=== PATIENT | female | born 1940 | race Caucasian/White ===

== ENCOUNTER → 2020-08-02 14:23 | Outpatient (CLI) | payer MEDICARE, OTHER, SELFPAY ==
[2020-08-02 13:39] VITALS: BMI 30.2
[2020-08-02 15:25] LABS: Absolute Lymphocyte Count 1.81 X10^3/uL (0.83-4.51); Absolute Neutrophil Count 4.4 X10^3/uL (2.0-7.7); Basophil# 0.04 X10^3/uL; Basophil% 0.6 % (0-1); Eosinophil# 0.27 X10^3/uL; Eosinophils% 3.8 % (0-5); Hematocrit 42.3 % (37-47); Hemoglobin 13.3 g/dL (12.0-15.0); Lymphocyte # 1.81 X10^3/ul (4.0); Lymphocyte % 25.8 % (19-41); Mean Corp Hgb Conc 31.4 g/dL (32-36); Mean Corpuscular Hgb 29.6 pg (27.0-32.0); Mean Platelet Vol. 10.3 fl (6.2-12.0); Monocyte# 0.47 X10^3/uL; Monocyte% 6.7 % (0-10); NRBC Flagged by Analyzer 0 % (0-5); Neutrophil # 4.41 X10^3/uL (2.7-7.7); Neutrophil % 62.8 % (47-70); Platelet Count 211 K/mm3 (150-450); RBC Distribution Width CV 13.4 % (11.6-14.6); RBC Distribution Width SD 46.5 fl (35.1-43.9)
[2020-08-02 15:55] LABS: AST(SGOT) 16 U/L (15-37); Alanine Aminotransfer ALT/SGPT 26 U/L (13-56); Albumin, Serum 3.9 g/dL (3.2-5.0); Alkaline Phosphatase 71 U/L (45-117); Anion Gap 4 (5-15); BUN 23 mg/dL (7-18); BUN/Creat Ratio 26.5 RATIO (10-20); Chloride 107 mmol/L (98-107); Creatinine, Serum 0.87 mg/dL (0.55-1.02); EST Glomerular Filtration Rate 67 mL/min (>60); Est Glom Filt Rate - Afr Amer 81 mL/min (>60); Glucose 87 mg/dL (74-106); Potassium 4.9 mmol/L (3.5-5.1); Protein, Total 7.9 g/dL (6.4-8.2); Sodium Level 139 mmol/L (136-145); T4 Free Direct 0.92 ng/dL (0.76-1.46); Thyroid Stim Hormone (TSH) 3.39 uIU/mL (0.358-3.74)
[2020-08-02 16:02] LABS: Vitamin B12 515 pg/mL (211-911); Vitamin D,25 Hydroxy 55.2 ng/mL
[2020-08-02 16:39] LABS: Cholesterol 135 mg/dL (200); High Density Lipoprotein 38 mg/dL; Triglycerides 285 mg/dL; Very Low Density Lipoprotein 57 mg/dL (5-40)
== END ==
PROVIDERS: PCP Internal Medicine; Referring Provider Internal Medicine; Visit Provider Internal Medicine
DX: E53.8 Deficiency of other specified B group vitamins (principal); I10 Essential (primary) hypertension; E78.5 Hyperlipidemia, unspecified; M81.0 Age-related osteoporosis without current pathological fracture
CPT/HCPCS: 36415; 80053; 80061; 82306; 82607; 84439; 84443; 85025

== ENCOUNTER → 2020-08-07 12:28 | Outpatient (CLI) | payer MEDICARE, OTHER, SELFPAY ==
[2020-08-02 13:39] VITALS: BMI 30.2
--- NOTE | 2020-08-07 12:33 | RAD_ITS ---
STUDY: X-RAY - THORACIC SPINE REASON FOR EXAM: Female, 79 years old. BACK PAIN TECHNIQUE: 3 view(s) of the thoracic spine were obtained. COMPARISON: None. FINDINGS: There is an increase in the normal thoracic kyphosis. There is no substantial scoliosis. There is demineralization of the thoracic spine with endplate spondylosis. There is multilevel disc space narrowing of the thoracic spine. No acute fracture noted, chronic wedge shaped compression fractures noted at T4 and T8, each show approximately 50% loss of height anteriorly The soft tissue structures are unremarkable. RAD/Thoracic Spine 3 Views IMPRESSION: Diffuse osteopenia with multilevel degenerative changes. No acute findings Chronic compression fractures at T4 and T8 Electronically Signed: Darin Harper MD at 16:45 EST , Service support ,
--- NOTE | 2020-08-07 12:33 | RAD_ITS ---
STUDY: X-RAY - LUMBAR SPINE REASON FOR EXAM: Female, 79 years old. BACK PAIN TECHNIQUE: 4 view(s) of the lumbar spine were obtained. COMPARISON: None FINDINGS: Normal lumbar lordosis. There is no substantial scoliosis. There is a normal alignment of the vertebrae. Compression fractures at L2-L3 and L4 have been stabilized with kyphoplasties. Small amount of extravasation of cement outside the L3 and L4 noted. There is multi-level degenerative disc disease with multi-level disc space narrowing. There is no demonstrated acute fracture. The soft tissue structures are unremarkable. RAD/Lumbar Spine 2 or 3 Views IMPRESSION: Multilevel degenerative changes without acute fracture or suspicious osseous lesion Previous vertebroplasties noted at L3-L4 and L5 to stabilize compression fractures. Small amount of extravasated cement noted superior to the L3 vertebral body, and inferior to the L4 vertebral body. Electronically Signed: Darin Harper MD at 15:12 EST , Service support ,
--- NOTE | 2020-08-07 12:33 | RAD_ITS ---
HISTORY: NECK PAIN ADDITIONAL HISTORY: None provided. EXAMINATION/TECHNIQUE: XR Spine Cervical 2 or 3 Views Number of images including paperwork: 3 COMPARISON: None FINDINGS: VERTEBRAE: No acute fracture. VERTEBRAL ALIGNMENT: No traumatic subluxation. Approximate 5 mm of anterolisthesis of C4 on C5, likely degenerative given presence of severe facet arthropathy. DISKS AND JOINTS: Severe discogenic degenerative changes at C5-6. Cervical spine below the level of the upper aspect of C6 that are visualized on swimmer's ear from thoracic spine series. Severe facet arthropathy is present at C2-3, C3/4 and C4-5. SOFT TISSUES: Unremarkable paraspinous soft tissues. RAD/Cerv Spine 2 or 3 Views IMPRESSION: 1. No acute findings. 2. Cervical spondylosis. at 0721 Reported and signed by: Christine Dickens MD Electronically Signed: Christine Dickens MD at 7:21 EST Tel , Service support ,
--- NOTE | 2020-08-07 13:00 | RAD_ITS ---
HISTORY: PAIN AND SWELLING, FELL 1 MONTH ADDITIONAL HISTORY: None provided. EXAMINATION/TECHNIQUE: XR Forearm 2 Views Left Number of images including paperwork: 6 COMPARISON: Left wrist 06/28/2020 FINDINGS: BONES: Comminuted, intra-articular fracture of the left distal radius is noted with some impaction, dorsal displacement and dorsal angulation, slightly decreased compared to previous. Callus formation is noted without solid osseous union. JOINTS: No subluxation. SOFT TISSUES: No distinct foreign body. Soft tissue swelling. RAD/Forearm 2 Views IMPRESSION: Interval callus formation without evidence of solid osseous of left distal radius fracture. at 0725 Reported and signed by: Christine Dickens MD Electronically Signed: Christine Dickens MD at 7:25 EST Tel , Service support ,
== END ==
PROVIDERS: PCP Internal Medicine; Referring Provider Anesthesiology Pain Medicine; Visit Provider Anesthesiology Pain Medicine
DX: M54.2 Cervicalgia (principal); M54.9 Dorsalgia, unspecified
CPT/HCPCS: 72040; 72072; 72100; 73090

== ENCOUNTER → 2020-09-08 12:54 | Outpatient (CLI) | payer MEDICARE, OTHER, SELFPAY ==
[2020-08-02 13:39] VITALS: BMI 30.2
--- NOTE | 2020-09-08 13:36 | ST.MBS ---
Modified Barium Swallow - Patient Information Study Date: 09/08/20 Study Time: 13:00 Direct Billable Minutes: 90 Total Minutes procedure & reportin Diagnosis: dysphagia, unspecified (R13.10) Referring Physician: Vincent Frances Reason for Referral: The patient reports increased coughing with particular foods. Medical History: Per medical chart, the patient has a past medical history of heart disease, dementia, partial complex seizures, h/o back surgery, and acquired autoimmune encephalopathy. Current Diet Ordered: regular textures/thin liquids Dentition: Natural Teeth Mental Status: WNL Respiratory Status: Oxygenating on Room Air - Study Findings Consistencies: Thin Liquid, [place] Thick Liquid, Pudding, Cookie - Penetration-Aspiration Scale Penetration-Aspiration Scale: OBJECTIVE ASSESSMENT OF SWALLOW FUNCTION (QUANTITATIVE ? PER TRIAL): PENETRATION / ASPIRATION SCALE (YOON): 1 = does not enter airway 2 = enters airway/above vocal folds/ejected 3 = enters airway/above vocal folds/not ejected 4 = enters airway/contacts vocal folds/ejected 5 = enters airway/contacts vocal folds/not ejected 6 = enters airway/below vocal folds/ejected 7 = enters airway/below vocal folds/not ejected despite effort 8 = enters airway/below vocal folds/no effort - Penetration-Aspiration Scale Score Thin Liquid via teaspoon Result: 2= enter airway/above vocal folds/ejected Thin Liquid via teaspoon Trial 2 Result: 1= does not enter airway Thin Liquid via small single sip from cup Result: 1= does not enter airway Thin Liquid via large single sip from cup Result: 1= does not enter airway Thin Liquid via sequential sips from cup Result: 1= does not enter airway [place] Thick Liquid via large single sip from cup Result: 1= does not enter airway Pudding Result: 1= does not enter airway Cookie Result: 1= does not enter airway Thin Liquid via sequential sips from straw Result: 1= does not enter airway - Oral Phase Labial Seal: No Labial Escape Tongue Control During Bolus Hold: Cohesive bolus between tongue to palatal seal Bolus Preparation/Mastication: Timely and efficient chewing and mashing Bolus Transport/Lingual Motion: Brisk tongue motion Oral Residue: Trace residue lining oral structures - Pharyngeal Phase Initiation of Pharyngeal Swallow: Bolus head at posterior angle of ramus at first hyoid excursion Soft Palate Elevation: No bolus between soft palate and pharyngeal wall Laryngeal Elevation: Partial superior movement thyroid cart/partial apprx aryt-epig petiole Anterior Hyoid Excursion: Partial anterior movement Epiglottic Movement: Complete inversion Laryngeal Vestibule Closure at Height of Swallow: Incomplete; narrow column of air/contrast in laryngeal vestibule Pharyngeal Stripping Wave: Present - complete Pharyngoesophageal Segment Opening: Complete distension and complete duration; no obstruction of flow Tongue Base Retraction: Trace column of contrast between tongue base & post. pharyngeal wall Pharyngeal Residue: Complete pharyngeal clearance - Diagnosis/Impression Diagnosis: Swallow Function Within Normal Limits Impression: It was a pleasure working with the patient this date for a modified barium swallow study. The patient has reported increased coughing and bringing up food mainly pasta. The patient trialed solid Eileen Doone cookie and pudding textures both with adequate mastication and oral clearance. The patient trialed thin liquid barium from teaspoon sized trials to larger sequential sips via cup and straw. Only upon initial trial with thin liquid via tsp did patient have penetration above the vocal cords which was ejected. No aspiration found at this date and time. Symptoms patient is describing seem to be more esophageal in nature. Patient and spouse report history of acid reflux. Would recommend further esophageal workup to determine cause of patients symptoms. - Recommendations Diet: Regular Textures, Thin Liquids Compensatory Strategies: Small Bites, Small Sips, Sitting upright, Remain sitting upright for 30 minutes after PO intake Recommend Repeat Modified Barium Swallow: No Need for Skilled Speech Therapy Services: No Recommended Referrals: GI Consult Education Completed: 1. Described result of evaluation., 2. Pt understands evaluation & agrees with goals and treatment plan., 4. Family/caregivers understand evaluation & agree w/ goals & tx plan. - Status Active ST Patient: Active - Contact Information [facility] Speech Therapy:: Princess Andrews MA, CCC-CLIENT SERVICE SUPERVISOR [place] [phone] [email or web address]
== END ==
PROVIDERS: PCP Internal Medicine; Referring Provider Otolaryngology; Visit Provider Otolaryngology
DX: R13.10 Dysphagia, unspecified (principal)
CPT/HCPCS: 74230; 92611

== ENCOUNTER 2020-09-21 13:30 | Outpatient (RCR) | payer MEDICARE, OTHER, SELFPAY ==
[2020-06-28 13:37] VITALS: BMI 30.2
--- NOTE | 2020-08-01 08:43 | HP.OTEVAL_ITS ---
Patient's Visit Information SHELDON ALAN is a 79 year old F, referred to Occupational Therapy by STEPHANIE SANDOVAL, with a diagnosis of left radius intraarticular fx.. Date of Evaluation: 07/31/20 Occupational Therapist: Jerri Boyd, OTR/Tori, CHT - Subjective this 79 year old female was seen for OT eval with dx of left radius intraarticular fracture. fall was about the 1st week of ( maybe Jun. or Jun 20). pt did suffer fall arriving into facility and landed on hands- states someone in w/c got to close to her and she lost her balance. states some pain but nothing more than she typically has. pt states cast was removed last week and she continues to struggle with ADLS. pt would like to return to using her left hand for ADLS and IADLs. - ADLs Dressing: Bra, Button shirt, Pants, Socks, Shoes Fasteners: Tie shoes, Buttons, Zippers Eating: Use silverware, Cut food Bathing: Handle washcloth & soap, Squeeze shampoo bottle Kitchen: Open bottle caps - Pain left wrist 8 Pain Intensity Range: 5, 8 - ROM Forearm: right/left WNL Wrist: right 70/60 left 30/40 ROM Comments: pt demo with the ability to form a composite fist - Strength Certified Lactation Counselor: right 40# left NT Lateral Pinch: right 6# left NT Tripod Pinch: right 2# left NT Strength Comments: left wafer production lead worker strength will be tested at later date - Edema Wrist: right 15cm left 16.5 Other: right MCP 18cm left 18cm - Sensation Sensation Comments: denies tingling in finger tips (notes tingling/numbness around wrist) - Quick DASH-Disab of Arm,Shoulder& Hand Quick DASH Score: 72.7250 - Goals Goal:: when releases pt to strength in 8 weeks pt will demo a left wafer production lead worker strength of 30# or greater to increase pts ind. with ADls and IADL by d/c Goal:: pt will demo a increase in left wrist ROM by 25* or greater to increase pts ind. with self feeding, bathing and dressing tasks by dc Goal:: pt will report no pain greater than 2/10 with use of left UE for ADLs and IADLs by d/c Goal:: pt will demo understanding of joint protection , use of ad. eq to increase pts ind. with ADls and IADLS - Rehabilitation General Assessment: Pt demo with limited left wrist ROM and pain limiting her ind. with ADls and IADLS. pt arrives to clinic about 6 weeks from DOI ( 2 or 3rd per pts spouse). pt would benefit from skilled OT services 2x week for 6 weeks to decrease pain and increase use of left UE for ADls and IADLs. Today therapist ed. on GE wrist flex/ext to increase ROM, ed on modalities as heat or ice to decrease pts pain. pt and spouse demo understanding of ex and agree to POC Rehabilitation Potential: Good - Anticipated Interventions A/AAROM/PROM, Edema Control, Modalities, Orthoses, Joint Protection/Energy Conservation, Ergonomic Education - Visit Plan Frequency: 1-2x /Week Duration: 6 Weeks TEXT: Thank you for the opportunity to evaluate your patient. For Medicare and Medicare HMO plans, please review the plan of care and approve it. It will need to be FAXED BACK to us at [phone] for Medicare purposes. Please let me know if there are questions or concerns regarding this plan of care. Physician Signature: Date:
--- NOTE | 2020-08-23 13:02 | HP.PTEVAL ---
Patient's Visit Information SHELDON ALAN is a 79 year old F referred to Physical Therapy by STEPHANIE SANDOVAL with a diagnosis of Unsteady gait. Date of Evaluation: 08/23/20 Physical Therapist: Gunnar Graves, PT, ATC - Visit Plan Frequency: 2x /Week Duration: 4-6 Weeks Plan: B LE strengthening, balance and proprio ex's, gait training, nustep, and HEP - Subjective Pt reports she has fallen several times in the past, the most recent fall was last May when she fell and fractured her wrist. Pt is currently being treated by OT for that injury. Pt reports her falls have occurred in the house. Pt ambulates with a rolling walker outside of her house. Pt has good feeling in her feet. Pt reports she tends to fall when she walks around corners, and if she attempts to walk backwards. Pt reports she feels weak in her legs at this time. No tingling or numbness in her legs. Pt reports she is unable to ambulate far distances secondary to weakness. Pt has no stairs in her home. Pt reports no LE pain, but notes her L wrist is painful all the time. - Objective Neuro: B LE sensation is WNL to light touch. B patellar reflex= 2/3. MMT: B LE's are grossly 4-/5 throughout. No pain with MMT. ROM: B LE's are WFL this date. FGA: 08/16 - Balance Scores Functional Gait Assessment Score: 12 % Disability: 60.0000 - Goals Goal 1:: Increase B LE strength x 1 grade to aid with increasing tolerance for ambulation Goal Time Frame: 4-6 Weeks Goal 2:: Increase FGA score by 5 points to aid with preventing future falls Goal Time Frame: 4-6 Weeks Goal 3:: I with HEP Goal Time Frame: 4-6 Weeks - Rehabilitation Potential Physical Therapy Diagnosis: Pt has LE weakness, decreased dynamic balance, and a Hx of falls secondary to debilitation Rehabilitation Potential: Good - Anticipated Interventions Patient/Client Instruction: Educate patient on: Condition, Plan of Care For the Purpose of:: To improve self management Therapeutic Exercise to Include: Strength training, Endurance training, Balance training, Gait and locomotor training For the Purpose of:: To improve muscle performance and motor function, To increase tolerance to activity/condition/position, To improve gait and locomotor functions Thank you for the opportunity to evaluate your patient. For Medicare and Medicare HMO plans, please review the plan of care and approve it. It will need to be FAXED BACK to us at [phone] for Medicare purposes. For Medicare only, by signing this I certify the plan of care. Please let me know if there are questions or concerns regarding this plan of care. Physician Signature: Date:
--- NOTE | 2020-09-13 13:05 | HP.OTDCSUM ---
It has been my pleasure to treat SHELDON ALAN under orders from STEPHANIE SANDOVAL, for the diagnosis of left radius intraarticular fx. for a total of 12 visit(s). Please see the following information for a summary of their discharge status. % Improvement: 80 Objective/Function: left retail coverage merchandiser strength at 20#. left wrist 60/45. left lateral and tripod pinch 2# with thumb instability noted - Patient Goals: Use Hand/Wrist/Arm Normally Again Goal:: when releases pt to strength in 8 weeks pt will demo a left retail coverage merchandiser strength of 30# or greater to increase pts ind. with ADls and IADL by d/c Goal:: pt will demo a increase in left wrist ROM by 25* or greater to increase pts ind. with self feeding, bathing and dressing tasks by dc Goal:: pt will report no pain greater than 2/10 with use of left UE for ADLs and IADLs by d/c Goal:: pt will demo understanding of joint protection , use of ad. eq to increase pts ind. with ADls and IADLS Plan: cont with simulated ADL use. retail coverage merchandiser/pinch strength If there are questions or concerns regarding this patient's occupational therapy, please fell free to call me at [phone]. Thank you for the referral of this patient. Sincerely, Jerri Boyd, OTR/L, CHT
--- NOTE | 2020-09-21 16:04 | HP.PTDCSUM ---
It has been my pleasure to treat SHELDON ALAN referred by STEPHANIE SANDOVAL, with the diagnosis of Unsteady gait for a total of 8 visit(s). Discharge Date: Please see the following information for a summary of their discharge status. Subjective: Pt reports she continues to improve % Improvement: 75 Objective/Function: B LE MMT 5/5 throughout. FGA= . Pt is I with HEP. Rx goals achieved Goal 1:: Increase B LE strength x 1 grade to aid with increasing tolerance for ambulation Goal Progress: Goal Met Goal 2:: Increase FGA score by 5 points to aid with preventing future falls Goal Progress: Goal Met Goal 3:: I with HEP Goal Progress: Goal Met Plan: Discharge If there are questions or concerns regarding this patient's physical therapy, please feel free to call me at [phone]. Thank you for the referral of this patient. Sincerely, Gunnar Graves, PT, ATC
== END 2020-09-21 19:00 | disposition home or self-care (01) ==
LOC: PT 13:30
DX: S52.572D Other intraarticular fracture of lower end of left radius, subsequent encounter for closed fracture with routine healing (principal)
CPT/HCPCS: 97035; 97110; 97140; 97161; 97164; 97166; 97530

== ENCOUNTER 2020-10-07 21:26 | Emergency (ER) | payer MEDICARE, OTHER, SELFPAY ==
[2020-09-29 11:20] VITALS: BMI 30.4
[2020-10-07 21:27] VITALS: BP 139/65; PULSE 83; RESP 15; TEMP 36.3; O2SAT 93; BMI 29.2
--- NOTE | 2020-10-07 22:12 | ED.VIS.GEN ---
History of Present Illness Chief Complaint: Allergic Reaction Informant: Patient, Family Onset: Hours Context: Gradual Onset Current Severity: Mild Maximum Severity: Mild Narrative: Patient presents secondary to generalized itching. She received her Covid vaccine this morning, first dose of [employer]. Approximately one hour prior to arrival she states she started itching diffusely. No rashes been noted. She denies shortness of breath or throat tightness. She has not taken anything for her symptoms. - Past Medical History (1) Hypertension Status: Chronic (2) Myocardial infarction Status: Chronic (3) Gastroesophageal reflux disease Status: Chronic (4) Hyperlipidemia Status: Chronic (5) ERIS (obstructive sleep apnea) Status: Chronic (6) RSD (reflex sympathetic dystrophy) Status: Chronic (7) Restless leg syndrome Status: Chronic (8) Seizure disorder Status: Chronic Past Medical History - Allergies and Home Meds Allergies/Adverse Reactions: Allergies doxycycline Allergy (Mild, Verified 09/29/20 11:11) Vomiting oxycodone [From Percocet] Allergy (Mild, Verified 09/29/20 11:11) Confusion acetaminophen [From Darvocet-N] Allergy (Verified 09/29/20 11:11) Other lamotrigine [From Lamictal] Allergy (Verified 09/29/20 11:11) Lip Swelling moxifloxacin HCl [From Avelox] Allergy (Verified 09/29/20 11:11) Other propoxyphene napsylate [From Darvocet-N] Allergy (Verified 09/29/20 11:11) Other zolpidem tartrate [From Ambien] Adverse Reaction (Verified 09/29/20 11:11) Other Primary Care Physician: Bryant Melendrez MD [Primary Care Provider] - Prior records reviewed: Yes Lives: Spouse/ Significant Other Smoking Status: Never smoker Review of Systems General: Denies: Chills, Fever Eyes: Denies: Visual changes - bilaterally ENT: Denies: Bilateral ear pain Cardiovascular: Denies: Chest pain Respiratory: Denies: Dyspnea, Cough Gastrointestinal: Denies: Abdominal pain, Vomiting, Diarrhea Musculoskeletal: Denies: Swelling, Extremity Pain Skin: Denies: Rash, Wounds Neurological: Denies: Headache Allergy: Denies: Uticaria, Swelling of the mouth, Swelling of the tongue Physical Exam Vital Signs/Narrative: Vital Signs Temp Pulse Resp BP Pulse Ox 10/07/20 21:27 97.3 F L 83 15 139/65 H 93 Inital Vital Signs reviewed: Yes General: Well nourished, Well developed Head: Normocephalic ENT: Moist mucous membranes Neck: Supple Cardiovascular: Regular rate, Regular rhythm Respiratory: No distress, CTA bilaterally Abdomen: Soft, Nontender Extremities: Nontender Skin: Normal color, No rash Neurological: Alert, Oriented x3 Psychological: Normal affect Diagnostic/Tx/Re-eval - Medical Decision Making Patient was given 25 mg of p.o. Benadryl. After approximately 20 minutes patient states she is feeling improved and wishes to go home. will be with her. ED Disposition - Plan for ED Patient: Disposition: Home or Assisted Living Diagnosis: Pruritus Instructions: ED Drug Reaction, Other Referrals: Bryant Melendrez MD [Primary Care Provider] - As Needed
[2020-10-07] MEDS: DiphenhydrAMINE 25 MG Capsule PO (22:18)
[2020-10-07 23:02] VITALS: RESP 18
== END 2020-10-07 23:03 | disposition home or self-care (01) ==
PROVIDERS: Emergency Provider Emergency Medicine; PCP Internal Medicine
DX: L29.9 Pruritus, unspecified (principal); I10 Essential (primary) hypertension; E78.5 Hyperlipidemia, unspecified; G25.81 Restless legs syndrome; G40.909 Epilepsy, unspecified, not intractable, without status epilepticus; G47.33 Obstructive sleep apnea (adult) (pediatric); K21.9 Gastro-esophageal reflux disease without esophagitis; I25.2 Old myocardial infarction; Z23 Encounter for immunization; Z88.5 Allergy status to narcotic agent; Z88.8 Allergy status to other drugs, medicaments and biological substances; G90.50 Complex regional pain syndrome I, unspecified
CPT/HCPCS: 99283

== ENCOUNTER → 2020-10-12 08:32 | Outpatient (CLI) | payer MEDICARE, OTHER, SELFPAY ==
[2020-09-29 11:20] VITALS: BMI 30.4
[2020-10-07 21:27] VITALS: BMI 29.2
--- NOTE | 2020-10-13 10:28 | PFT ---
INTRODUCTION: The patient is a 80-year-old female that presents for pulmonary function studies secondary to a diagnosis of dyspnea. Respiratory therapy reports good patient effort. Bronchodilators were used during testing. INTERPRETATION: Forced expiration spirometry demonstrates no evidence of a large airways obstructive ventilatory defect. There was no significant response to aerosolized bronchodilators. Spirograms are of good quality and plateau normally. Body plethysmography was performed and reveals lung volumes to be within normal limits. Diffusing capacity by single breath CO was reduced to 67% of predicted. IMPRESSION: Isolated mild reduction in diffusing capacity, which could be related to an underlying pulmonary vascular disorder such as pulmonary hypertension.
== END ==
PROVIDERS: PCP Internal Medicine; Referring Provider Internal Medicine Critical Care Medicine; Visit Provider Internal Medicine Critical Care Medicine
DX: R06.00 Dyspnea, unspecified (principal)
CPT/HCPCS: 94060; 94726; 94729

== ENCOUNTER → 2020-10-16 12:23 | Outpatient (CLI) | payer MEDICARE, OTHER, SELFPAY ==
[2020-09-29 11:20] VITALS: BMI 30.4
[2020-10-07 21:27] VITALS: BMI 29.2
--- NOTE | 2020-10-16 12:42 | CT_ITS ---
STUDY: CT CHEST WITHOUT CONTRAST REASON FOR EXAM: Female, 80 years old. DYSPNEA, NON SMOKER, HX-LT BREAST CA-LUMPECTOMY AND RAD TX, KYPHOPLASTY RADIATION DOSAGE (If Supplied By Facility): CTDIvol = ( 8.86 ) mGy, DLP = ( 265.69 ) mGycm TECHNIQUE: Transaxial imaging was performed without the administration of intravenous contrast material. Multiplanar coronal and sagittal images were reformatted. Individualized dose optimization techniques were used for this CT. COMPARISON: Comparison is made with prior study dated 12/26/2014. FINDINGS: Postoperative changes are seen in the left breast. 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 Mild increased markings at the lung bases likely more prominent on the right side suggestive of basilar scarring. There is no demonstrated pleural abnormality. There are calcifications of the coronary arteries. There are multiple small lymph nodes within the mediastinum, which are normal in size and morphology most compatible with reactive lymph hyperplasia. Normal hilar regions. Normal unenhanced pulmonary arteries. There is atherosclerotic calcification of the aortic arch with tortuosity and elongation of the aortic arch and descending thoracic aorta. There are multi-level degenerative changes of the thoracic spine. Increased kyphosis. Almost complete loss of right upper mid dorsal vertebrae. Large hiatal hernia. CT/Chest without Contrast IMPRESSION: Mild increased markings at the lung bases suggestive of scarring. 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 Electronically Signed: Sam Mac MD at 13:52 EST , Service support ,
[2020-10-16 13:36] VITALS: PULSE 69; PULSE 72; PULSE 81; PULSE 86; PULSE 90; PULSE 91; O2SAT 90; O2SAT 91; O2SAT 92; O2SAT 93; O2SAT 95
--- NOTE | 2020-10-16 14:54 | PCM.PSN.6M ---
PSN 6 Minute Walk Test - 6 Minute Walk Test 6 Minute Walk Test: 6 Minute Walk Test PSN:6-Minute Walk Test Start: 10/16/20 13:36 Freq: Status: Active Protocol: RESP.6MINW Document 10/16/20 13:36 [place] (Rec: 10/16/20 13:38 [place] [id number]) 6 Minute Walk Test Date Performed 10/16/20 Time Performed 12:30 Height 5 ft Weight: 68.039 kg Weight in Pounds 150.[address]: Malachi Caal Assistive device used: None Pre-test Oxygen Delivery Method Room Air Pulse Ox (%) 92 Pulse Rate (60-100 beats/min) 69 Dyspnea Christopher Scale (0-10) 0.5 Exertion Christopher Scale (6-20) 6 1st minute Oxygen Delivery Method Room Air Pulse Ox (%) 92 Pulse Rate (60-100 beats/min) 81 2nd minute Oxygen Delivery Method Room Air Pulse Ox (%) 95 Pulse Rate (60-100 beats/min) 86 3rd minute Oxygen Delivery Method Room Air Pulse Ox (%) 92 Pulse Rate (60-100 beats/min) 90 4th minute Oxygen Delivery Method Room Air Pulse Ox (%) 91 Pulse Rate (60-100 beats/min) 91 5th minute Oxygen Delivery Method Room Air Pulse Ox (%) 90 Pulse Rate (60-100 beats/min) 91 6th minute Oxygen Delivery Method Room Air Pulse Ox (%) 92 Pulse Rate (60-100 beats/min) 91 Dyspnea Christopher Scale (0-10) 3 Exertion Christopher Scale (6-20) 13 Post-test Oxygen Delivery Method Room Air Pulse Ox (%) 93 Pulse Rate (60-100 beats/min) 72 Full Laps Walked 10 Partial Lap, Number of Tiles Walked 27 Total Distance Walked (ft) 617 - Interpretation Interpretation: Patient was able to ambulate 617 feet over the course of 6 minutes on room air with no assistive devices or breaks. The patient did have significant desaturation as low as 90% with a mild increase in heart rate to a peak of 91 bpm. These findings are consistent with a respiratory limitation exercise tolerance. - Recommendations Recommendations: No supplemental oxygen is indicated at this time. However, patient will need to be followed closely given level of desaturation.
== END ==
PROVIDERS: PCP Internal Medicine; Referring Provider Internal Medicine Critical Care Medicine; Visit Provider Internal Medicine Critical Care Medicine
DX: R06.00 Dyspnea, unspecified (principal)
CPT/HCPCS: 71250; 94618

== ENCOUNTER 2021-02-02 07:11 | Day surgery (SDC) | payer MEDICARE, OTHER, SELFPAY ==
[2020-11-06 13:06] VITALS: BMI 30.2
--- NOTE | 2021-01-22 11:02 | EKG12_ITS ---
Test Reason : PRE OP Blood Pressure : / mmHG Vent. Rate : 077 BPM Atrial Rate : 077 BPM P-R Int : 176 ms QRS Dur : 082 ms QT Int : 404 ms P-R-T Axes : 030 -24 068 degrees QTc Int : 457 ms Normal sinus rhythm Septal infarct , age undetermined Abnormal ECG Confirmed by TONNY COHEN, NAVDEEP ([id number]), city editor AMRNIE VIZCARRA ([id number]) on 01/23/2021 10:25:19 AM Referred By: Vincent Frances Confirmed By:NAVDEEP LANCASTER MD
[2021-02-02] VITALS (21 sets, daily range): BP systolic 102–168; BP diastolic 66–100; PULSE 68–76; RESP 14–18; TEMP 36–36.4; O2SAT 78–96; BMI 30.1
[2021-02-02] MEDS: Lactated Ringers 1,000 ML 100 ML IV ×2 (07:42→09:15)
[2021-02-02 07:53] LABS: Absolute Neutrophil Count 3.4 X10^3/uL (2.0-7.7); Basophil# 0.04 X10^3/uL; Basophil% 0.7 % (0-1); Eosinophil# 0.23 X10^3/uL; Eosinophils% 3.9 % (0-5); Hematocrit 41.9 % (37-47); Hemoglobin 13.7 g/dL (12.0-15.0); Lymphocyte % 32.2 % (19-41); Mean Corp Hgb Conc 32.7 g/dL (32-36); Mean Corpuscular Hgb 29.7 pg (27.0-32.0); Mean Corpuscular Volume 90.7 fL (81-99); Mean Platelet Vol. 9.9 fl (6.2-12.0); Monocyte# 0.32 X10^3/uL; Monocyte% 5.4 % (0-10); NRBC Flagged by Analyzer 0 % (0-5); Neutrophil # 3.39 X10^3/uL (2.7-7.7); Neutrophil % 57.5 % (47-70); Platelet Count 181 K/mm3 (150-450); RBC Distribution Width CV 12.6 % (11.6-14.6); RBC Distribution Width SD 41.9 fl (35.1-43.9); Red Blood Count 4.62 M/mm3 (4.2-5.4); White Blood Count 5.9 K/mm3 (4.4-11.0)
[2021-02-02 08:09] LABS: Anion Gap 6 (5-15); BUN 19 mg/dL (7-18); BUN/Creat Ratio 19.8 RATIO (10-20); Calcium,Total 8.7 mg/dL (8.5-10.1); Chloride 107 mmol/L (98-107); Creatinine, Serum 0.96 mg/dL (0.55-1.02); EST Glomerular Filtration Rate 60 mL/min (>60); Est Glom Filt Rate - Afr Amer 72 mL/min (>60); Estimated Creatinine Clearance 51.53 ml/min; Glucose 89 mg/dL (74-106); Potassium 4.2 mmol/L (3.5-5.1); Sodium Level 141 mmol/L (136-145)
[2021-02-02] MEDS: Oxymetazoline 0.05% 1 SPRAY SPRAY.BTL 15 SPRAY (09:10)
[2021-02-02] MEDS: Lidocaine 4% 50 ML Bottle (09:10)
--- NOTE | 2021-02-02 09:25 | PCM.OPRPT ---
Problems Associated Problem List Diagnoses (1) Cricopharyngeus muscle dysfunction: Report of Operation Date of Procedure: 02/02/21 Pre-Operative Diagnosis: Dysphagia Post-Operative Diagnosis: Same Surgery/Procedure Performed:: Direct laryngoscopy, esophageal dilation by bougie Description of Surgical Findings:: Lauren is a 80-year-old female with longstanding history of dysphagia. Although preoperative swallowing exam had showed no significant aspiration or reflux she continues to complain of significant swallowing problems and has a history of esophageal dilation which she reports gave her good relief and she desires repeat dilation in hopes of improvement of her complaint. The risks, alternatives, potential complications, and benefits were discussed at length and any questions answered to the patient and/or caregiver's satisfaction. Witnessed informed consent was obtained in the office, and the patient and/or caregiver was agreeable to proceed. Procedure went as follows: The patient was identified in the preoperative holding and brought to the operating room, placed under general anesthesia, and intubated. When appropriate anesthesia was obtained, the head of bed was rotated and the patient prepped and draped in usual sterile fashion. A dental guard was then placed to protect the upper gums and the Dedo laryngoscope then introduced. Direct laryngoscopy was then carried out. The oral mucosa was noted to be very dry. The lateral posterior pharyngeal wall mucosa, tonsillar fossa, vallecula, piriforms, and epiglottis were noted to be normal in appearance. The true and false vocal folds were then brought into view and again noted to be normal in appearance. The esophageal inlet was then evaluated and noted to be quite tight but without masses or other lesions. The Dedo was then withdrawn. Esophageal dilation was then undertaken using serial bougies with copious lubrication, and passed gradually from 15 [place] up to [address] [place] which was the maximal size that was comfortably able to be passed. The patient taken out of suspension and returned to anesthesia, was revived, and extubated without complication having tolerated the procedure well. Surgeon: Vincent Frances Type of Anesthesia: General Anesthesiologist: Andrew Philippe Special Medications: none Specimen's removed: none Drains: none Estimated Blood Loss (mL): 0 mL Fluids Replaced: 1000 mL Grafts/Implants Used: none Complications none Admit VTE Documentation VTE Present on Admission: Yes VTE Mechan Device Prophylaxis: SCD's VTE Pharm Prophylaxis ordered?: No Reason prophylaxis not ordered:: Procedure Not Indicated
--- NOTE | 2021-02-02 09:34 | PCM.DC ---
Discharge Instructions Diet Discharge Diet: Soft diet Activity Discharge Activity: Return to Normal Activity Dressing / Incision Call your doctor if your incision/area has: Increased Pain/ Swelling Call your doctor if you observe: Fever of 101 or Higher, Increased palpitations (irregular heartbeat) and Uncontrolled pain Follow Up Care Please Follow Up With: january When: 2 weeks Test Results: Test results from this visit will be discussed in further detail at your follow-up appointment, if applicable. Discharge Plan Admission Primary Reason for Your Visit: dysphagia Attending Provider: Vincent Frances Primary Care Provider: Bryant Melendrez Discharge Orders/Prescriptions Prescriptions: Continued hyoscyamine sulfate 0.125 mg tablet 0.125 mg PO BID RF: 0 esomeprazole magnesium [Nexium] 40 mg capsule,delayed release(DR/EC) 40 mg PO DAILY RF: 0 Vimpat 100 mg tablet 100 mg PO BID RF: 0 Vitron-C 65 mg iron- 125 mg tablet,delayed release (DR/EC) 1 tab PO QODAY RF: 0 spironolactone [Aldactone] 25 mg tablet 25 mg PO QHS RF: 0 pramipexole [Mirapex] 0.25 mg tablet 0.5 mg PO QHS RF: 0 pravastatin 40 mg tablet 40 mg PO DAILY RF: 0 montelukast [Singulair] 10 mg tablet 10 mg PO DAILY RF: 0 sertraline [Zoloft] 100 mg tablet 100 mg PO QHS RF: 0 nitroglycerin 0.4 mg tablet, sublingual 0.4 mg SUBLINGUAL ONCE PRN (Reason: CP) RF: 0 cholecalciferol (vitamin D3) 50 mcg (2,000 unit) capsule 50,000 unit PO QMONTH RF: 0 Myrbetriq 50 mg tablet extended release 24 hr 100 mg PO QHS RF: 0 tolterodine [Detrol LA] 4 mg capsule,extended release 24hr 4 mg PO DAILY RF: 0 furosemide [Lasix] 20 mg tablet 20 mg PO DAILY Qty: 90 RF: 2 cholecalciferol (vitamin D3) [Vitamin D3] 50 mcg (2,000 unit) Capsule 50 mcg PO DAILY RF: 0 Zyrtec 10 mg Capsule 10 mg PO DAILY RF: 0 aspirin 81 mg tablet,delayed release (DR/EC) 81 mg PO DAILY Qty: 0 RF: 0 gabapentin 300 mg capsule 600 mg PO BID Qty: 360 RF: 3 Prolia 60 mg/mL syringe 60 mg SC [id number] Qty: 1 RF: 2 ezetimibe [Zetia] 10 mg tablet 10 mg PO DAILY Qty: 90 RF: 2 Referrals / Follow Up: Bryant Melendrez MD [Primary Care Provider] - Disposition Discharge Orders: Discharge Patient (Routine); Ordered 02/02/21 Ordered By: Dr. Vincent Frances
== END 2021-02-02 14:24 ==
LOC: SDC 07:14 → AC 07:14
PROVIDERS: PCP Internal Medicine; Referring Provider Otolaryngology; Visit Provider Otolaryngology
PROC: 0CJS8ZZ Inspection of Larynx, Via Natural or Artificial Opening Endoscopic (ICD-10-PCS; CPT 31575; principal; 2021-02-02 08:45)
PROC: (CPT 31525; 2021-02-02 08:45)
DX: R13.10 Dysphagia, unspecified (principal); R42 Dizziness and giddiness; Z85.3 Personal history of malignant neoplasm of breast
CPT/HCPCS: 31525; 43450; 80048; 85025; 93005; J7120; J2310; J2405

== ENCOUNTER 2021-02-10 09:30 | Inpatient (IN) | payer MEDICARE, OTHER, SELFPAY ==
[2021-02-06 13:08] VITALS: BMI 30.1
[2021-02-10] VITALS (22 sets, daily range): BP systolic 75–123; BP diastolic 57–91; PULSE 88–107; RESP 16–24; TEMP 36–36.8; O2SAT 88–98; BMI 31.8
--- NOTE | 2021-02-10 09:31 | RAD_ITS ---
INDICATION: Neuro deficit, acute, stroke suspected EXAMINATION/TECHNIQUE: X-RAY - XR Chest 1 View COMPARISON: Radiographs of the chest dated 05/08/2020 CT of the chest dated 10/16/2020. FINDINGS: LINES/DEVICES: None. LUNGS: Lung volumes are diminished bilaterally. This may be secondary to poor inspiratory effort and portable technique. There is right hilar airspace opacity as well as left basilar streaky airspace opacity. Costophrenic angles are sharp. No large pneumothorax is seen. No large pleural effusion is seen. MEDIASTINUM AND CARDIOVASCULAR STRUCTURES: The mediastinum and heart does not appear significantly enlarged. However there is prominence of the bilateral kamryn. There is tortuosity of the airway and aorta. Aortic atherosclerotic calcification is seen. Again noted is a likely hiatal hernia. BONES AND SOFT TISSUES: Surgical clips are noted overlying the left chest wall. Osseous structures demonstrate degenerative change. Likely kyphoplasty is noted in the lower thoracic spine. Likely prior right-sided rib fractures are noted. No acute fracture is seen. RAD/Chest 1 View IMPRESSION: Right hilar and left basilar airspace disease. This is nonspecific and may represent atelectasis or scarring. Underlying infectious process is not entirely excluded. 2. Prominent pulmonary vasculature at the bilateral kamryn. This may represent pulmonary edema. This may also represent vascular crowding from poor inspiratory effort and portable technique. 3. Likely prior kyphoplasty in the lower thoracic spine. No acute fracture is seen. 4. Likely hiatal hernia. Electronically Signed: Mikhail Howard MD at 12:06 EDT Tel , Service support ,
--- NOTE | 2021-02-10 09:31 | EKG12_ITS ---
Test Reason : STROKE Blood Pressure : / mmHG Vent. Rate : 102 BPM Atrial Rate : 102 BPM P-R Int : 200 ms QRS Dur : 072 ms QT Int : 318 ms P-R-T Axes : 058 -25 113 degrees QTc Int : 414 ms Sinus tachycardia Anteroseptal infarct , age undetermined Abnormal ECG Confirmed by COLT COHEN, ARTIS ([id number]), mapping editor MARNIE VIZCARRA ([id number]) on 02/13/2021 8:47:29 AM Referred By: CL Confirmed By:ARTIS GREGORY MD
--- NOTE | 2021-02-10 09:31 | CT_ITS ---
STUDY: CT HEAD STROKE PROTOCOL W/O CONTRAST INJECTION REASON FOR EXAM: Female, 80 years old. Severe headache RADIATION DOSAGE (If Supplied By Facility): CTDIvol = ( ) mGy, DLP = ( ) mGycm TECHNIQUE: Transaxial CT imaging of the brain was performed without administration of intravenous contrast material. Individualized dose optimization techniques were used for this CT. COMPARISON: No relevant priors. FINDINGS: Normal soft tissue structures. Normal calvarium. There is moderate cerebral atrophy with widening of the extra-axial spaces and ventricular dilatation. There are areas of decreased attenuation within the white matter tracts of the supratentorial brain, consistent with microvascular disease changes. Normal basal ganglia and thalami. Normal brainstem. Normal cerebellum. There is no intracranial hemorrhage. There are no findings of an acute ischemic infarction. Normal visualized paranasal sinuses. ASPECT score: 10 CT/STROKE Brain/Head without Cont IMPRESSION: Chronic involutional changes of the brain. No acute hemorrhage N.B. : The above Results were Read Back by Darin Harper MD to MD Brenda, and understanding confirmed on 02/10/2021 09:48:04 (ET). Electronically Signed: Darin Harper MD at 9:49 EDT , Service support ,
--- NOTE | 2021-02-10 09:40 | CT_ITS ---
STUDY: CTA HEAD AND NECK WITH CONTRAST REASON FOR EXAM: Female, 80 years old. Stroke RADIATION DOSAGE (If Supplied By Facility): CTDIvol = ( 17.67 ) mGy, DLP = ( 685.18 ) mGycm TECHNIQUE: CT angiography was performed with a multi-detector CT scanner. Data acquisition was obtained from the skull base through the vertex following intravenous administration of IV 100mL Isovue-370. MIP images were reconstructed from the axial data set. Post-processing of the angiographic images was performed, with multiplanar reformation and 3D reconstruction. Individualized dose optimization techniques were used for this CT. COMPARISON: No relevant priors. FINDINGS: Normal bilateral petrous carotid arteries. Normal right cavernous carotid artery with a normal supraclinoid bifurcation. There is calcified plaque formation of the left cavernous carotid artery, without a cross-sectional luminal stenosis. Normal right A1 segments of the anterior cerebral artery. Normal left A1 segments of the anterior cerebral artery. There is non-visualization of the anterior communicating artery (ACOM). Normal bilateral A2 segments of the anterior cerebral arteries. Normal right M1 and M2 segments of the middle cerebral arteries, with a normal M1 bifurcation. Normal left M1 and M2 segments of the middle cerebral arteries, with a normal M1 bifurcation. Faintly visualized right posterior communicating artery (PCOM). There is a persistent origin of the left posterior cerebral artery with absence of the posterior communicating artery (PCOM). Normal bilateral vertebral arteries. Normal basilar artery with a normal basilar bifurcation. The visualized bilateral superior cerebellar (SCA) arteries are normal. There is no demonstrated definite aneurysm of the [place]. There is no demonstrated abnormality of the visualized brain. AORTIC ARCH: Normal visualized aortic arch. Common origins of the brachiocephalic, left common carotid, and left subclavian arteries which is a normal variant. RIGHT CAROTID ARTERIES: There is atherosclerotic tortuous elongation of the right common carotid artery. There is mild atherosclerotic plaque formation without significant narrowing of the right carotid bulb. Normal origin of the right internal carotid (ICA) artery without a hemodynamically significant stenosis. Normal visualized cervical portion of the right internal carotid artery. Normal origin of the right external carotid artery (ECA). LEFT CAROTID ARTERIES: Normal left common carotid artery (CCA). Normal left common carotid bulb. Normal origin of the left internal carotid (ICA) artery without a hemodynamically significant stenosis. Normal visualized cervical portion of the left internal carotid artery. Normal origin of the left external carotid artery (ECA). VERTEBRAL ARTERIES: Normal bilateral vertebral arteries. Degenerative changes in the cervical spine. Mild anterolisthesis of C3 over C4. CT/CTA Head AND Neck W/ Contrast IMPRESSION: 1. No intracranial great vessel stenosis. 2. Minimal atherosclerotic plaque in the right bulb region without significant stenosis. 3. Unremarkable internal carotid arteries. 4. Patent bilateral vertebral arteries. Electronically Signed: Kenny Leo MD at 12:01 EDT Tel , Service support ,
[2021-02-10 10:05] LABS: Absolute Neutrophil Count 15.1 X10^3/uL (2.0-7.7); Basophil# 0.05 X10^3/uL; Basophil% 0.3 % (0-1); Eosinophil# 0.15 X10^3/uL; Eosinophils% 0.8 % (0-5); Hematocrit 53.4 % (37-47); Hemoglobin 17.7 g/dL (12.0-15.0); Lymphocyte % 7.3 % (19-41); Mean Corp Hgb Conc 33.1 g/dL (32-36); Mean Corpuscular Hgb 29.4 pg (27.0-32.0); Mean Corpuscular Volume 88.7 fL (81-99); Mean Platelet Vol. 9.8 fl (6.2-12.0); Monocyte% 5.6 % (0-10); NRBC Flagged by Analyzer 0 % (0-5); Neutrophil # 15.09 X10^3/uL (2.7-7.7); Neutrophil % 85.3 % (47-70); Platelet Count 227 K/mm3 (150-450); RBC Distribution Width CV 12.9 % (11.6-14.6); RBC Distribution Width SD 41.8 fl (35.1-43.9); Red Blood Count 6.02 M/mm3 (4.2-5.4); White Blood Count 17.7 K/mm3 (4.4-11.0)
[2021-02-10 10:15] LABS: International Normalized Ratio 1.1; Partial Thromboplast Time 23.2 Seconds (24.1-36.2); Prothrombin Time (Protime)PT. 13.9 SECONDS (11.7-14.9)
[2021-02-10 10:29] LABS: Anion Gap 11 (5-15); BUN 30 mg/dL (7-18); BUN/Creat Ratio 20.8 RATIO (10-20); Calcium,Total 9.1 mg/dL (8.5-10.1); Chloride 106 mmol/L (98-107); Creatinine, Serum 1.44 mg/dL (0.55-1.02); EST Glomerular Filtration Rate 37 mL/min (>60); Est Glom Filt Rate - Afr Amer 45 mL/min (>60); Glucose 176 mg/dL (74-106); Potassium 3.9 mmol/L (3.5-5.1); Sodium Level 142 mmol/L (136-145); Troponin-I HS 5.1 pg/mL (3.0-53.7)
[2021-02-10 12:16] LABS: Mucous, Urine 0 SEEN /hpf (<or=2+); Red Blood Cells-Urine 0 SEEN /hpf (0-5)
--- NOTE | 2021-02-10 12:40 | PCM.HP.STD ---
HPI - General General Date of Admission: 02/10/21 HPI Narrative SHELDON ALAN, is a 80 F who presents with altered mental status that was noticed on the morning of admission. Patient was in her usual state of health the day before. She had gone out to a restaurant with her family. She came back home and later on got a . Patient walks with a walker, but is mostly in the wheelchair. She has advanced dementia and has been as well as home health care care primary caregivers. Later on the evening she had urged to use the bathroom. There were no bowel movement. She went to bed late in the evening. There has been woke up early in the morning to find incontinent of stool. He was later unable to get out of bed as she appeared very lethargic. The EMS squad were called. A slight right-sided facial droop was noticed just as well as patient could not tell the name of the , was confused. Stroke alert was called. [facility] Medical History aquired autoimmune encephalopathy Arthritis Asthma Back pain Bladder disease Cancer Cardiology follow-up encounter Dementia Dementia Depression Difficulty swallowing DVT (deep venous thrombosis) Falls Falls frequently Gastric reflux h/o back surgery Health care maintenance Heart disease High cholesterol History of heart attack History of stress test Hx of echocardiogram Hypertension Low iron Non-smoker Partial complex seizures Restless legs Seizures Shortness of breath on exertion TIA (transient ischemic attack) Walker as ambulation aid Home Medications iron,carbonyl 65 mg-vitamin C 125 mg tablet,delayed release 1 tab PO QODAY 06/28/20 [History Last Taken Unknown] lacosamide 100 mg tablet 100 mg PO BID 06/28/20 [History Last Taken 02/02/21 06:15] pramipexole 0.25 mg tablet 0.5 mg PO QHS 06/28/20 [History Last Taken Unknown] spironolactone 25 mg tablet 25 mg PO QHS 06/28/20 [History Last Taken Unknown] cholecalciferol (vitamin D3) 50 mcg (2,000 unit) capsule 50,000 unit PO QMONTH cap 08/02/20 [History Last Taken Unknown] furosemide 20 mg tablet 20 mg PO DAILY #90 tablet 11/06/20 [Rx Last Taken Unknown] mirabegron 50 mg tablet,extended release 24 hr 100 mg PO QHS tablet 11/06/20 [History Last Taken Unknown] tolterodine 4 mg capsule,extended release 24 hr 4 mg PO DAILY cap 11/06/20 [History Last Taken 02/02/21 06:15] gabapentin 300 mg capsule 600 mg PO BID #360 cap 11/08/20 [Rx Last Taken 02/02/21 06:15] denosumab 60 mg/mL subcutaneous syringe 60 mg SC [id number] #1 ml 11/21/20 [Rx Last Taken Unknown] ezetimibe 10 mg tablet 10 mg PO DAILY #90 tablet 12/04/20 [Rx Last Taken Unknown] Zyrtec 10 mg PO DAILY 01/29/21 [History Last Taken Unknown] cholecalciferol (vitamin D3) [Vitamin D3] 50 mcg PO DAILY 01/29/21 [History Last Taken Unknown] aspirin 81 mg PO DAILY #0 tab 02/02/21 [Rx Last Taken Unknown] esomeprazole magnesium 40 mg capsule,delayed release 40 mg PO DAILY #90 cap 02/06/21 [Rx Last Taken Unknown] hyoscyamine sulfate 0.125 mg tablet 0.125 mg PO BID 90 Days #180 tab 02/06/21 [Rx Last Taken Unknown] montelukast 10 mg tablet 10 mg PO DAILY #90 tab 02/06/21 [Rx Last Taken Unknown] nitroglycerin 0.4 mg sublingual tablet 0.4 mg SUBLINGUAL ONCE PRN #90 tab 02/06/21 [Rx Last Taken Unknown] pravastatin 40 mg tablet 40 mg PO DAILY #90 tab 02/06/21 [Rx Last Taken Unknown] sertraline 100 mg tablet 100 mg PO QHS #90 tab 02/06/21 [Rx Last Taken Unknown] Allergy/AdvReac Type Severity Reaction Status Date / Time doxycycline Allergy Mild Vomiting Verified 02/06/21 13:03 oxycodone [From Percocet] Allergy Mild Confusion Verified 02/06/21 13:03 acetaminophen Allergy Other Verified 02/06/21 13:03 [From Darvocet-N] lamotrigine [From Lamictal] Allergy Lip Verified 02/06/21 13:03 Swelling latex Allergy Rash Verified 02/06/21 13:03 moxifloxacin HCl Allergy Other Verified 02/06/21 13:03 [From Avelox] propoxyphene napsylate Allergy Other Verified 02/06/21 13:03 [From Darvocet-N] zolpidem tartrate AdvReac Other Verified 02/06/21 13:03 [From Ambien] Family History Mother CVA (cerebral vascular accident) Father Myocardial infarction Surgical History H/O heart artery stent H/O kyphoplasty History of appendectomy History of cardiac catheterization History of esophagogastroduodenoscopy (EGD) History of laryngoscopy History of lumpectomy of left breast Hx of cataract extraction Hx of colonoscopy Hx of ventral hernia repair Social History household members: spouse housing: house Smoking Status: Never smoker alcohol intake: current alcohol intake frequency: a few times a week do you feel safe at home: Yes ROS Review of Systems ROS Unobtainable: due to encephalopathy Vital Signs Vital Signs Vital Signs: 02/10/21 09:39 02/10/21 09:52 02/10/21 09:58 Temperature 98.1 F 98.1 F 98.1 F Temperature Source Temporal Temporal Temporal Pulse Rate 107 H 102 H 102 H Respiratory Rate 24 H 21 H 22 H Blood Pressure 75/61 L 103/80 115/85 H Blood Pressure Mean 65 87 95 Pulse Ox 88 93 94 Oxygen Delivery Method Room Air Nasal Cannula Nasal Cannula Oxygen Flow Rate (L/min) 4 4 02/10/21 10:01 02/10/21 10:31 02/10/21 11:01 Temperature Temperature Source Pulse Rate 94 88 91 Respiratory Rate 20 H 21 H 19 H Blood Pressure 117/72 117/72 114/76 Blood Pressure Mean 87 87 88 Pulse Ox 98 95 95 Oxygen Delivery Method Nasal Cannula Nasal Cannula Room Air Oxygen Flow Rate (L/min) 4 4 4 02/10/21 11:22 Temperature Temperature Source Pulse Rate Respiratory Rate Blood Pressure 114/76 Blood Pressure Mean 88 Pulse Ox Oxygen Delivery Method Oxygen Flow Rate (L/min) Weight Weight: 72.6 kg Body Mass Index (BMI) 31.8 Physical Exam Narrative Physical exam: General: Alert, confused, oriented to self and place, Cooperative, No apparent distress, appears frail HEENT: Atraumatic Oral: Moist Mucosa Neck: Supple Lungs: Clear to auscultation Cardiovascular: HS I+II, regular, no murmurs Abdomen: Bowel Sounds Present, Soft, Non Tender Extremities: No edema Skin: No rashes, No breakdown Neurological: Grossly intact Results Lab / Micro Data Result Diagrams: 02/11/21 05:11 02/11/21 05:11 Labs: Laboratory Results - last 24 hr 02/10/21 02/10/21 02/10/21 09:57 09:57 09:57 WBC 17.7 H RBC 6.02 H Hgb 17.7 H Hct 53.4 H MCV 88.7 MCH 29.4 MCHC 33.1 RDW Std Deviation 41.8 RDW Coeff of Jorge 12.9 Plt Count 227 MPV 9.8 Immature Gran % (Auto) 0.700 Neut % (Auto) 85.3 H Lymph % (Auto) 7.3 L [place] % (Auto) 5.6 Eos % (Auto) 0.8 Baso % (Auto) 0.3 Absolute Neuts (auto) 15.1 H Absolute Lymphs (auto) 1.30 Nucleated RBC % 0 PT 13.9 INR 1.1 APTT 23.2 L Sodium 142 Potassium 3.9 Chloride 106 Carbon Dioxide 25.0 Anion Gap 11 BUN 30 H Creatinine 1.44 H Estim Creat Clear Calc 36.90 Est GFR (MDRD) Af Amer 45 L Est GFR (MDRD) Non-Af 37 L BUN/Creatinine Ratio 20.8 H Glucose 176 H Calcium 9.1 Troponin I High Sens 5.[address] 02/10/21 09:31 IMPRESSION: Chronic involutional changes of the brain. No acute hemorrhage N.B. : The above Results were Read Back by Darin Harper MD to MD Brenda, and understanding confirmed on 02/10/2021 09:48:04 (ET). Electronically Signed: Darin Harper MD at 9:49 EDT , Service support , ADDENDUM: 02/10/21 0956 IMPRESSION: Chronic involutional changes of the brain. No acute hemorrhage N.B. : The above Results were Read Back by Darin Harper MD to MD Brenda, and understanding confirmed on 02/10/2021 09:48:04 (ET). Electronically Signed: Darin Harper MD at 9:49 EDT , Service support , Chest X-Ray 02/10/21 09:31 IMPRESSION: Right hilar and left basilar airspace disease. This is nonspecific and may represent atelectasis or scarring. Underlying infectious process is not entirely excluded. 2. Prominent pulmonary vasculature at the bilateral kamryn. This may represent pulmonary edema. This may also represent vascular crowding from poor inspiratory effort and portable technique. 3. Likely prior kyphoplasty in the lower thoracic spine. No acute fracture is seen. 4. Likely hiatal hernia. Electronically Signed: Mikhail Howard MD at 12:06 EDT Tel , Service support , Head/Neck CTA 02/10/21 09:40 IMPRESSION: 1. No intracranial great vessel stenosis. 2. Minimal atherosclerotic plaque in the right bulb region without significant stenosis. 3. Unremarkable internal carotid arteries. 4. Patent bilateral vertebral arteries. Electronically Signed: Kenny Leo MD at 12:01 EDT Tel , Service support , Assessment & Plan Assessment/Plan (1) Hypertension: QUALIFIERS: Hypertension type: essential hypertension Qualified Code(s): I10 - Essential (primary) hypertension (2) ERIS (obstructive sleep apnea): (3) Esophageal dysphagia: (4) Gastroesophageal reflux disease: QUALIFIERS: Esophagitis presence: esophagitis presence not specified Qualified Code(s): K21.9 - Gastro-esophageal reflux disease without esophagitis (5) Seizure disorder: (6) Osteoporosis: QUALIFIERS: Osteoporosis type: unspecified Presence of current pathological fracture: unspecified Qualified Code(s): M81.0 - Age-related osteoporosis without current pathological fracture (7) AMS (altered mental status): QUALIFIERS: Altered mental status type: delirium Qualified Code(s): R41.0 - Disorientation, unspecified (8) VITALIY (acute kidney injury): PLAN: 1. Altered mental status, unclear etiology, concerning for possible stroke Chest x-ray shows no acute cardiopulmonary process, UA was slightly cloudy, nitrite negative, leucocyte 25, +[address] of the brain was unremarkable-showed chronic involutional changes CT of the head and neck was negative We will admit to PCU, continue with stroke work-up 2. Acute knee injury likely secondary to dehydration, baseline creatinine is 0.96, Admitted with creatinine of 1.44 Continue on IVF 3. Probable UTI, started on antibiotics in ED Will aim for 3 days of antibiotics for acute umcomplicated UTI 4. Rest of her chronic medical conditions including esophageal dysphagia status post dilatation, advanced dementia, obstructive sleep apnea, seizure disorder, osteoporosis all remained stable Meds reviewed 5. CODE STATUS: Full code I discussed and explained in details the various types of CODE STATUS-full code, DNR CCA, DNR CC with patient's as patient has advanced dementia and he is a healthcare power of prosecuting attorney. He stated that he wanted everything done to keep her alive, including cardiopulmonary resuscitation, intubation, mechanical ventilator. Time spent discussing CODE STATUS 18 minutes Charges/Coding Visit Charges Inpatient E&M: 50306 Init Hosp L3 Procedures Hospitalists Procedures: 45158 Advncd Care Plan 30 Min
[2021-02-10 12:42] LABS: Color, Urine Yellow (Yellow); Glucose, Dipstick Normal (Normal); Ketone-Dipstick Negative (Negative); Leukocyte Esterase-Dipstick 25 /ul (Negative); Nitrite-Dipstick Negative (Negative); Occult Blood-Urine 10 /ul (Negative); Protein-Dipstick 15 mg/dl (Negative); Urine Bilirubin Dipstick Negative (Negative); Urine Clarity Sl. Cloudy (Clear); Urine Urobilinogen 1 mg/dl (Normal)
--- NOTE | 2021-02-10 12:49 | EDS_ITS ---
HPI History of Present Illness Chief Complaint: Neuro S/Sx Narrative Narrative: 80-year-old female brought in by EMS with concern for strokelike symptoms. states that she was well approximately 9 and half hours ago. Woke up this morning had right-sided facial droop. Patient is also confused. Lost her bowels. Cannot provide accurate history of present illness. [facility] Medical History aquired autoimmune encephalopathy Arthritis Asthma Back pain Bladder disease Cancer Cardiology follow-up encounter Dementia Dementia Depression Difficulty swallowing DVT (deep venous thrombosis) Falls Falls frequently Gastric reflux h/o back surgery Health care maintenance Heart disease High cholesterol History of heart attack History of stress test Hx of echocardiogram Hypertension Low iron Non-smoker Partial complex seizures Restless legs Seizures Shortness of breath on exertion TIA (transient ischemic attack) Walker as ambulation aid Home Medications iron,carbonyl 65 mg-vitamin C 125 mg tablet,delayed release 1 tab PO QODAY 06/28/20 [History Last Taken Unknown] lacosamide 100 mg tablet 100 mg PO BID 06/28/20 [History Last Taken 02/02/21 06:15] pramipexole 0.25 mg tablet 0.5 mg PO QHS 06/28/20 [History Last Taken Unknown] spironolactone 25 mg tablet 25 mg PO QHS 06/28/20 [History Last Taken Unknown] cholecalciferol (vitamin D3) 50 mcg (2,000 unit) capsule 50,000 unit PO QMONTH cap 08/02/20 [History Last Taken Unknown] furosemide 20 mg tablet 20 mg PO DAILY #90 tablet 11/06/20 [Rx Last Taken Unknown] mirabegron 50 mg tablet,extended release 24 hr 100 mg PO QHS tablet 11/06/20 [History Last Taken Unknown] tolterodine 4 mg capsule,extended release 24 hr 4 mg PO DAILY cap 11/06/20 [History Last Taken 02/02/21 06:15] gabapentin 300 mg capsule 600 mg PO BID #360 cap 11/08/20 [Rx Last Taken 02/02/21 06:15] denosumab 60 mg/mL subcutaneous syringe 60 mg SC [id number] #1 ml 11/21/20 [Rx Last Taken Unknown] ezetimibe 10 mg tablet 10 mg PO DAILY #90 tablet 12/04/20 [Rx Last Taken Unknown] Zyrtec 10 mg PO DAILY 01/29/21 [History Last Taken Unknown] cholecalciferol (vitamin D3) [Vitamin D3] 50 mcg PO DAILY 01/29/21 [History Last Taken Unknown] aspirin 81 mg PO DAILY #0 tab 02/02/21 [Rx Last Taken Unknown] esomeprazole magnesium 40 mg capsule,delayed release 40 mg PO DAILY #90 cap 02/06/21 [Rx Last Taken Unknown] hyoscyamine sulfate 0.125 mg tablet 0.125 mg PO BID 90 Days #180 tab 02/06/21 [Rx Last Taken Unknown] montelukast 10 mg tablet 10 mg PO DAILY #90 tab 02/06/21 [Rx Last Taken Unknown] nitroglycerin 0.4 mg sublingual tablet 0.4 mg SUBLINGUAL ONCE PRN #90 tab 02/06/21 [Rx Last Taken Unknown] pravastatin 40 mg tablet 40 mg PO DAILY #90 tab 02/06/21 [Rx Last Taken Unknown] sertraline 100 mg tablet 100 mg PO QHS #90 tab 02/06/21 [Rx Last Taken Unknown] Allergy/AdvReac Type Severity Reaction Status Date / Time doxycycline Allergy Mild Vomiting Verified 02/06/21 13:03 oxycodone [From Percocet] Allergy Mild Confusion Verified 02/06/21 13:03 acetaminophen Allergy Other Verified 02/06/21 13:03 [From Darvocet-N] lamotrigine [From Lamictal] Allergy Lip Verified 02/06/21 13:03 Swelling latex Allergy Rash Verified 02/06/21 13:03 moxifloxacin HCl Allergy Other Verified 02/06/21 13:03 [From Avelox] propoxyphene napsylate Allergy Other Verified 02/06/21 13:03 [From Darvocet-N] zolpidem tartrate AdvReac Other Verified 02/06/21 13:03 [From Ambien] Family History Mother CVA (cerebral vascular accident) Father Myocardial infarction Surgical History H/O heart artery stent H/O kyphoplasty History of appendectomy History of cardiac catheterization History of esophagogastroduodenoscopy (EGD) History of laryngoscopy History of lumpectomy of left breast Hx of cataract extraction Hx of colonoscopy Hx of ventral hernia repair Social History household members: spouse housing: house Smoking Status: Never smoker alcohol intake: current alcohol intake frequency: a few times a week do you feel safe at home: Yes ROS ROS ED ROS Narrative Unable to obtain given confusion. Review of Systems ROS Unobtainable: due to mental condition EXAM Physical Exam Const Vital Signs: 02/10/21 09:39 02/10/21 09:52 02/10/21 09:58 Temperature 98.1 F 98.1 F 98.1 F Temperature Source Temporal Temporal Temporal Pulse Rate 107 H 102 H 102 H Respiratory Rate 24 H 21 H 22 H Blood Pressure 75/61 L 103/80 115/85 H Blood Pressure Mean 65 87 95 Pulse Ox 88 93 94 Oxygen Delivery Method Room Air Nasal Cannula Nasal Cannula Oxygen Flow Rate (L/min) 4 4 02/10/21 10:01 02/10/21 10:31 02/10/21 11:01 Temperature Temperature Source Pulse Rate 94 88 91 Respiratory Rate 20 H 21 H 19 H Blood Pressure 117/72 117/72 114/76 Blood Pressure Mean 87 87 88 Pulse Ox 98 95 95 Oxygen Delivery Method Nasal Cannula Nasal Cannula Room Air Oxygen Flow Rate (L/min) 4 4 4 02/10/21 11:22 Temperature Temperature Source Pulse Rate Respiratory Rate Blood Pressure 114/76 Blood Pressure Mean 88 Pulse Ox Oxygen Delivery Method Oxygen Flow Rate (L/min) Positive well nourished and well developed General Appearance ED: well developed HEENT Reports dry mucous membranes normocephalic and atraumatic Mouth ED: Yes dry mucous membranes Mouth: dry mucous membranes Eyes PERRL and EOMs intact bilaterally Neck no lymphadenopathy, supple and no JVD Chest Wall inspection of chest normal Resp normal respiratory effort and clear to auscultation bilaterally Cardio regular rate, S1 normal heart sound, S2 normal heart sound and no murmurs Peripheral Pulses: pulses 2+ throughout GI soft to palpation, non-tender and non-distended Back/Spine no CVA tenderness and no thoracic nor lumbar tenderness Extremity normal to inspection General Extremety ED: Negative for edema or tenderness General Extremity: Negative for edema Neuro CN's II-XII intact bilaterally and no sensory deficits noted Neuro Narrative: Right facial droop. NIH of 1. Sensorium / Orientation: alert Motor Exam: strength 5/5 throughout Skin no rashes or lesions noted MDM MDM MDM Narrative Medical decision making narrative: Patient appears nontoxic. Right facial droop. Stroke team activated. CT brain negative. Leukocytosis with acute renal insufficiency. Patient given normal saline at 150 mls per hour. Given Rocephin with concern for possible UTI given she is losing her bowels. CTA negative. Patient given aspirin. Spoke with neurologist from [facility] who felt she could be admitted for stroke work-up. Stable at time of admission. Lab Data Attestation: I reviewed the patient's lab results. Labs: Laboratory Results - last 24 hr 02/10/21 02/10/21 02/10/21 09:57 09:57 09:57 WBC 17.7 H RBC 6.02 H Hgb 17.7 H Hct 53.4 H MCV 88.7 MCH 29.4 MCHC 33.1 RDW Std Deviation 41.8 RDW Coeff of Jorge 12.9 Plt Count 227 MPV 9.8 Immature Gran % (Auto) 0.700 Neut % (Auto) 85.3 H Lymph % (Auto) 7.3 L [place] % (Auto) 5.6 Eos % (Auto) 0.8 Baso % (Auto) 0.3 Absolute Neuts (auto) 15.1 H Absolute Lymphs (auto) 1.30 Nucleated RBC % 0 PT 13.9 INR 1.1 APTT 23.2 L Sodium 142 Potassium 3.9 Chloride 106 Carbon Dioxide 25.0 Anion Gap 11 BUN 30 H Creatinine 1.44 H Estim Creat Clear Calc 36.90 Est GFR (MDRD) Af Amer 45 L Est GFR (MDRD) Non-Af 37 L BUN/Creatinine Ratio 20.8 H Glucose 176 H Calcium 9.1 Troponin I High Sens 5.1 Radiography Chest X-Ray - ED: 1 View, Read by ED Physician, Read by Radiologist and Normal Diagnostic Testing: Radiology Impression Brain CT 02/10/21 09:31 IMPRESSION: Chronic involutional changes of the brain. No acute hemorrhage N.B. : The above Results were Read Back by Darin Harper MD to MD Brenda, and understanding confirmed on 02/10/2021 09:48:04 (ET). Electronically Signed: Darin Harper MD at 9:49 EDT , Service support , ADDENDUM: 02/10/21 0956 IMPRESSION: Chronic involutional changes of the brain. No acute hemorrhage N.B. : The above Results were Read Back by Darin Harper MD to MD Brenda, and understanding confirmed on 02/10/2021 09:48:04 (ET). Electronically Signed: Darin Harper MD at 9:49 EDT , Service support , Chest X-Ray 02/10/21 09:31 IMPRESSION: Right hilar and left basilar airspace disease. This is nonspecific and may represent atelectasis or scarring. Underlying infectious process is not entirely excluded. 2. Prominent pulmonary vasculature at the bilateral kamryn. This may represent pulmonary edema. This may also represent vascular crowding from poor inspiratory effort and portable technique. 3. Likely prior kyphoplasty in the lower thoracic spine. No acute fracture is seen. 4. Likely hiatal hernia. Electronically Signed: Mikhail Howard MD at 12:06 EDT Tel , Service support , Head/Neck CTA 02/10/21 09:40 IMPRESSION: 1. No intracranial great vessel stenosis. 2. Minimal atherosclerotic plaque in the right bulb region without significant stenosis. 3. Unremarkable internal carotid arteries. 4. Patent bilateral vertebral arteries. Electronically Signed: Kenny Leo MD at 12:01 EDT Tel , Service support , Rhythm Strip Rhythm Strip: Sinus Tach Rate: 102 Ectopy: None EKG Initial EKG: Attestation: I personally reviewed and interpreted this EKG as follows: Interpretation: No Acute Injury Pattern and Sinus Tachycardia Comments: Sinus tachycardia 102 bpm. WI interval 200 ms. QTC of [address] changes. Discharge Plan Triage Chief Complaint: Neuro S/Sx ED Provider: LeMasters,James Dx/Rx/DC Orders Clinical Impression: Stroke, Acute confusion, Acute kidney insufficiency Primary Care Provider: Bryant Melendrez Disposition Disposition: Acute Care Hospital [facility]
[2021-02-10 12:52] LABS: Bacteria 2+ /hpf (None Seen); Squamous Epithelial Cells - UA 0-5 SEEN /hpf (5-10); White Blood Cells 0-5 SEEN /hpf (0-5)
[2021-02-10] MEDS: Ceftriaxone 1 GM/50 ML BAG IV (13:25)
[2021-02-10] MEDS: Aspirin 81 MG TAB.CHEW 324 MG PO (13:34)
[2021-02-10 13:36] LABS: Troponin-I HS 3.7 pg/mL (3.0-53.7)
[2021-02-10] MEDS: 0.9% Normal Saline 1,000 ML 150 ML IV (15:04)
[2021-02-10] MEDS: 0.9% Normal Saline 1,000 ML 75 ML IV ×2 (15:51→18:56)
[2021-02-10] MEDS: Famotidine 20 MG Tablet PO (16:45)
[2021-02-10 18:06] LABS: Bedside Glucose 172 mg/dL (70-110)
[2021-02-10] MEDS: Sertraline 100 MG Tablet PO (22:19)
[2021-02-10] MEDS: Pramipexole Di-HCl 0.5 MG Tablet PO (22:19)
[2021-02-10] MEDS: Gabapentin 600 MG Tablet PO (22:20)
[2021-02-10] MEDS: Lacosamide 100 MG Tablet PO (22:20)
[2021-02-10] MEDS: Pravastatin 40 MG Tablet PO (22:20)
[2021-02-10] MEDS: Mirabegron 50 MG TAB.ER.24H 100 MG PO (22:20)
[2021-02-10] MEDS: Heparin Injection 5,000 UNITS/ML Syringe 5000 UNITS SC (22:28)
[2021-02-10 23:41] LABS: Bedside Glucose 177 mg/dL (70-110)
[2021-02-11] VITALS (10 sets, daily range): BP systolic 113–139; BP diastolic 66–86; PULSE 83–100; RESP 16–18; TEMP 36.3–37.1; O2SAT 93–96
[2021-02-11] MEDS: 0.9% Normal Saline 1,000 ML 75 ML IV ×2 (04:58→17:19)
[2021-02-11 05:50] LABS: Absolute Lymphocyte Count 1.57 X10^3/uL (0.83-4.51); Absolute Neutrophil Count 10.2 X10^3/uL (2.0-7.7); Basophil# 0.03 X10^3/uL; Basophil% 0.2 % (0-1); Hematocrit 42.2 % (37-47); Lymphocyte # 1.57 X10^3/ul (0.83-4.51); Lymphocyte % 12.3 % (19-41); Mean Corp Hgb Conc 33.2 g/dL (32-36); Mean Corpuscular Hgb 29.7 pg (27.0-32.0); Mean Corpuscular Volume 89.4 fL (81-99); Mean Platelet Vol. 10.3 fl (6.2-12.0); Monocyte# 0.93 X10^3/uL; Monocyte% 7.3 % (0-10); NRBC Flagged by Analyzer 0 % (0-5); Neutrophil # 10.19 X10^3/uL (2.7-7.7); Neutrophil % 79.7 % (47-70); POSITIVE MORPHOLOGY YES; Platelet Count 180 K/mm3 (150-450); RBC Distribution Width CV 13.1 % (11.6-14.6); RBC Distribution Width SD 43.1 fl (35.1-43.9); Red Blood Count 4.72 M/mm3 (4.2-5.4); White Blood Count 12.8 K/mm3 (4.4-11.0)
[2021-02-11 05:56] LABS: Bedside Glucose 146 mg/dL (70-110)
[2021-02-11 06:06] LABS: Differential Indicated SCAN CRITERIA MET
[2021-02-11 06:26] LABS: ALB/GLOB Ratio 0.7 RATIO (0.9-2.4); AST(SGOT) 14 U/L (15-37); Alanine Aminotransfer ALT/SGPT 13 U/L (13-56); Albumin, Serum 2.8 g/dL (3.2-5.0); Alkaline Phosphatase 65 U/L (45-117); Anion Gap 9 (5-15); BUN 33 mg/dL (7-18); BUN/Creat Ratio 28.2 RATIO (10-20); Calcium,Total 7.8 mg/dL (8.5-10.1); Chloride 109 mmol/L (98-107); Cholesterol 92 mg/dL (200); Creatinine, Serum 1.17 mg/dL (0.55-1.02); EST Glomerular Filtration Rate 48 mL/min (>60); Est Glom Filt Rate - Afr Amer 58 mL/min (>60); Estimated Creatinine Clearance 40.66 ml/min; Globulin 3.8 g/dL (2.2-4.2); Glucose 146 mg/dL (74-106); High Density Lipoprotein 43 mg/dL; Potassium 3.4 mmol/L (3.5-5.1); Protein, Total 6.6 g/dL (6.4-8.2); Sodium Level 142 mmol/L (136-145); Triglycerides 88 mg/dL; Very Low Density Lipoprotein 18 mg/dL (5-40)
[2021-02-11] MEDS: Potassium Chloride 10mEq/100mL 10 MEQ/100 ML IV.SOLN. 100 MEQ IV BOLUS ×4 (07:55→12:57)
[2021-02-11] MEDS: Montelukast 10 MG Tablet PO (08:05)
[2021-02-11] MEDS: Pantoprazole Sodium 40 MG Tablet PO (08:05)
[2021-02-11] MEDS: Lacosamide 100 MG Tablet PO ×2 (08:05→21:27)
[2021-02-11] MEDS: Gabapentin 600 MG Tablet PO ×2 (08:05→21:26)
[2021-02-11] MEDS: Aspirin 81 MG TAB.CHEW PO (08:05)
[2021-02-11] MEDS: Loratadine 10 MG Tablet PO (08:05)
[2021-02-11] MEDS: Cholecalciferol (VIT D3) 25 MCG TABLET (1,000 UNITS) 50 MCG PO (08:05)
[2021-02-11] MEDS: Famotidine 20 MG Tablet PO (08:05)
[2021-02-11] MEDS: Ezetimibe 10 MG Tablet PO (08:05)
[2021-02-11] MEDS: Tolterodine Tartrate 4 MG CAP.SA PO (08:06)
[2021-02-11] MEDS: Heparin Injection 5,000 UNITS/ML Syringe 5000 UNITS SC ×2 (08:06→21:36)
--- NOTE | 2021-02-11 08:52 | PCM.PN.HOSP ---
Subjective Subjective Patient seen and examined. She looks improved. She is oriented to self. Objective Data Objective Data Vital Signs: Vital Signs Temp Pulse Resp BP Pulse Ox 97.9 F 85 17 133/66 H 93 02/11/21 05:50 02/11/21 07:36 02/11/21 05:50 02/11/21 05:50 02/11/21 07:37 Oxygen Flow Rate (L/min) 4 Oxygen Delivery Method Nasal Cannula Weight: 65 kg Body Mass Index (BMI) 20.0 Intake & Output: Intake and Output for Last 24 Hours 02/09/21 02/10/21 02/11/21 23:59 23:59 23:59 Intake Total 827.50 / 827.50 373.75 / 373.75 Balance 827.50 / 827.50 373.75 / 373.75 Lab / Micro Data Result Diagrams: 02/11/21 05:11 02/11/21 05:11 Labs: Laboratory Results - last 24 hr 02/10/21 02/10/21 02/10/21 09:57 09:57 09:57 WBC 17.7 H RBC 6.02 H Hgb 17.7 H Hct 53.4 H MCV 88.7 MCH 29.4 MCHC 33.1 RDW Std Deviation 41.8 RDW Coeff of Jorge 12.9 Plt Count 227 MPV 9.8 Immature Gran % (Auto) 0.700 Neut % (Auto) 85.3 H Lymph % (Auto) 7.3 L [place] % (Auto) 5.6 Eos % (Auto) 0.8 Baso % (Auto) 0.3 Absolute Neuts (auto) 15.1 H Absolute Lymphs (auto) 1.30 Nucleated RBC % 0 PT 13.9 INR 1.1 APTT 23.2 L Sodium 142 Potassium 3.9 Chloride 106 Carbon Dioxide 25.0 Anion Gap 11 BUN 30 H Creatinine 1.44 H Estim Creat Clear Calc 36.90 Est GFR (MDRD) Af Amer 45 L Est GFR (MDRD) Non-Af 37 L BUN/Creatinine Ratio 20.8 H Glucose 176 H Calcium 9.1 Total Bilirubin AST ALT Alkaline Phosphatase Troponin I High Sens 5.1 Total Protein Albumin Globulin Albumin/Globulin Ratio Triglycerides Cholesterol LDL Cholesterol VLDL Cholesterol HDL Cholesterol Urine Color Urine Clarity Urine pH Ur Specific [place] Urine Protein Urine Glucose (UA) Urine Ketones Urine Occult Blood Urine Nitrite Urine Bilirubin Urine Urobilinogen Ur Leukocyte Esterase Urine RBC Urine WBC Ur Squamous Epith Cells Urine Bacteria Urine Mucus POC Glucose 02/10/21 02/10/21 02/10/21 12:10 13:08 18:01 WBC RBC Hgb Hct MCV MCH MCHC RDW Std Deviation RDW Coeff of Jorge Plt Count MPV Immature Gran % (Auto) Neut % (Auto) Lymph % (Auto) [place] % (Auto) Eos % (Auto) Baso % (Auto) Absolute Neuts (auto) Absolute Lymphs (auto) Nucleated RBC % PT INR APTT Sodium Potassium Chloride Carbon Dioxide Anion Gap BUN Creatinine Estim Creat Clear Calc Est GFR (MDRD) Af Amer Est GFR (MDRD) Non-Af BUN/Creatinine Ratio Glucose Calcium Total Bilirubin AST ALT Alkaline Phosphatase Troponin I High Sens 3.7 Total Protein Albumin Globulin Albumin/Globulin Ratio Triglycerides Cholesterol LDL Cholesterol VLDL Cholesterol HDL Cholesterol Urine Color Yellow Urine Clarity Sl. Cloudy Urine pH 5.0 Ur Specific [place] 1.010 Urine Protein 15 H Urine Glucose (UA) Normal Urine Ketones Negative Urine Occult Blood 10 H Urine Nitrite Negative Urine Bilirubin Negative Urine Urobilinogen 1 H Ur Leukocyte Esterase 25 H Urine RBC 0 SEEN Urine WBC 0-5 SEEN Ur Squamous Epith Cells 0-5 SEEN Urine Bacteria 2+ Urine Mucus 0 SEEN POC Glucose 172 H 02/10/21 02/11/21 02/11/21 23:36 05:11 05:11 WBC 12.8 H RBC 4.72 Hgb 14.0 Hct 42.2 MCV 89.4 MCH 29.7 MCHC 33.2 RDW Std Deviation 43.1 RDW Coeff of Jorge 13.1 Plt Count 180 MPV 10.3 Immature Gran % (Auto) 0.500 Neut % (Auto) 79.7 H Lymph % (Auto) 12.3 L [place] % (Auto) 7.3 Eos % (Auto) 0.0 Baso % (Auto) 0.2 Absolute Neuts (auto) 10.2 H Absolute Lymphs (auto) 1.57 Nucleated RBC % 0 PT INR APTT Sodium 142 Potassium 3.4 L Chloride 109 H Carbon Dioxide 24.0 Anion Gap 9 BUN 33 H Creatinine 1.17 H Estim Creat Clear Calc 40.66 Est GFR (MDRD) Af Amer 58 L Est GFR (MDRD) Non-Af 48 L BUN/Creatinine Ratio 28.2 H Glucose 146 H Calcium 7.8 L Total Bilirubin 0.60 AST 14 L ALT 13 Alkaline Phosphatase 65 Troponin I High Sens Total Protein 6.6 Albumin 2.8 L Globulin 3.8 Albumin/Globulin Ratio 0.7 L Triglycerides 88 Cholesterol 92 LDL Cholesterol 31 VLDL Cholesterol 18 HDL Cholesterol 43 Urine Color Urine Clarity Urine pH Ur Specific [place] Urine Protein Urine Glucose (UA) Urine Ketones Urine Occult Blood Urine Nitrite Urine Bilirubin Urine Urobilinogen Ur Leukocyte Esterase Urine RBC Urine WBC Ur Squamous Epith Cells Urine Bacteria Urine Mucus POC Glucose 177 H 02/11/21 05:48 WBC RBC Hgb Hct MCV MCH MCHC RDW Std Deviation RDW Coeff of Jorge Plt Count MPV Immature Gran % (Auto) Neut % (Auto) Lymph % (Auto) [place] % (Auto) Eos % (Auto) Baso % (Auto) Absolute Neuts (auto) Absolute Lymphs (auto) Nucleated RBC % PT INR APTT Sodium Potassium Chloride Carbon Dioxide Anion Gap BUN Creatinine Estim Creat Clear Calc Est GFR (MDRD) Af Amer Est GFR (MDRD) Non-Af BUN/Creatinine Ratio Glucose Calcium Total Bilirubin AST ALT Alkaline Phosphatase Troponin I High Sens Total Protein Albumin Globulin Albumin/Globulin Ratio Triglycerides Cholesterol LDL Cholesterol VLDL Cholesterol HDL Cholesterol Urine Color Urine Clarity Urine pH Ur Specific [place] Urine Protein Urine Glucose (UA) Urine Ketones Urine Occult Blood Urine Nitrite Urine Bilirubin Urine Urobilinogen Ur Leukocyte Esterase Urine RBC Urine WBC Ur Squamous Epith Cells Urine Bacteria Urine Mucus POC Glucose 146 H Radiography Diagnostic Testing: Radiology Impression Brain CT 02/10/21 09:31 IMPRESSION: Chronic involutional changes of the brain. No acute hemorrhage N.B. : The above Results were Read Back by Darin Harper MD to MD Brenda, and understanding confirmed on 02/10/2021 09:48:04 (ET). Electronically Signed: Darin Harper MD at 9:49 EDT , Service support , ADDENDUM: 02/10/21 0956 IMPRESSION: Chronic involutional changes of the brain. No acute hemorrhage N.B. : The above Results were Read Back by Darin Harper MD to MD Brenda, and understanding confirmed on 02/10/2021 09:48:04 (ET). Electronically Signed: Darin Harper MD at 9:49 EDT , Service support , Chest X-Ray 02/10/21 09:31 IMPRESSION: Right hilar and left basilar airspace disease. This is nonspecific and may represent atelectasis or scarring. Underlying infectious process is not entirely excluded. 2. Prominent pulmonary vasculature at the bilateral kamryn. This may represent pulmonary edema. This may also represent vascular crowding from poor inspiratory effort and portable technique. 3. Likely prior kyphoplasty in the lower thoracic spine. No acute fracture is seen. 4. Likely hiatal hernia. Electronically Signed: Mikhail Howard MD at 12:06 EDT Tel , Service support , Head/Neck CTA 02/10/21 09:40 IMPRESSION: 1. No intracranial great vessel stenosis. 2. Minimal atherosclerotic plaque in the right bulb region without significant stenosis. 3. Unremarkable internal carotid arteries. 4. Patent bilateral vertebral arteries. Electronically Signed: Kenny Leo MD at 12:01 EDT Tel , Service support , Rhythm Strip Rhythm Strip: Sinus Tach Rate: 102 Ectopy: None Physical Exam Narrative Physical exam: General: Alert, confused, oriented to self, cooperative, No apparent distress, appears frail HEENT: Atraumatic Oral: Moist Mucosa Neck: Supple Lungs: Clear to auscultation Cardiovascular: HS I+II, regular, no murmurs Abdomen: Bowel Sounds Present, Soft, Non Tender Extremities: No edema Assessment & Plan Assessment/Plan (1) Hypertension: QUALIFIERS: Hypertension type: essential hypertension Qualified Code(s): I10 - Essential (primary) hypertension (2) ERIS (obstructive sleep apnea): (3) Esophageal dysphagia: (4) Gastroesophageal reflux disease: QUALIFIERS: Esophagitis presence: esophagitis presence not specified Qualified Code(s): K21.9 - Gastro-esophageal reflux disease without esophagitis (5) Seizure disorder: (6) Osteoporosis: QUALIFIERS: Osteoporosis type: unspecified Presence of current pathological fracture: unspecified Qualified Code(s): M81.0 - Age-related osteoporosis without current pathological fracture (7) AMS (altered mental status): QUALIFIERS: Altered mental status type: delirium Qualified Code(s): R41.0 - Disorientation, unspecified (8) VITALIY (acute kidney injury): PLAN: 1. Altered mental status, likely secondary Acute UTI urine-urine is reportedly very cloudy Chest x-ray shows no acute cardiopulmonary process, Initial CT of the brain was unremarkable-showed chronic involutional changes CTA of the head and neck was negative Continue on IV ceftriaxone -will need 1 week empiric treatment 2. Acute knee injury likely secondary to dehydration, slowly improving Baseline creatinine is 0.96, admitted with creatinine of 1.44 Continue on IVF 3. Probable UTI, continue on IV ceftriaxone 4. Rest of her chronic medical conditions including esophageal dysphagia status post dilatation, advanced dementia, obstructive sleep apnea, seizure disorder, osteoporosis all remained stable Meds reviewed is interested in patient getting some subacute rehab Charges/Coding Visit Charges Inpatient E&M: 04501 Subs Hosp L2
[2021-02-11] MEDS: Ceftriaxone 1 GM/50 ML BAG IV (08:56)
--- NOTE | 2021-02-11 09:15 | MRI_ITS ---
STUDY: MRI BRAIN WITHOUT CONTRAST REASON FOR EXAM: Female, 80 years old. NEURODEFICIT, SUSPECTED ACUTE STROKE altered mental status. Headache TECHNIQUE: Standardized multiplanar fat and water weighted pulse sequences were obtained. COMPARISON: CT February 10, 2021 FINDINGS: There is moderate cerebral atrophy with widening of the extra-axial spaces and ventricular dilatation. There are multiple white matter hyperintensities, distributed throughout the deep white matter tracts of the cerebral hemispheres, consistent with moderate chronic white matter ischemic changes. There is no evidence for recent intracranial ischemia or other cause of cytotoxic edema on diffusion weighted imaging (DWI). Normal T2* images of the brain without demonstrated susceptibility artifact. There is no demonstrated hemosiderin stain. Normal bilateral basal ganglia. Normal thalami. There is no extra-axial fluid accumulation. Normal flow voids within the major intracranial circulation suggesting patency by spin echo criteria. Normal sella turcica, pituitary gland, infundibular stalk, optic chiasm and hypothalamus. Normal tectal plate and pineal gland. Normal midbrain, hilton and medulla. Normal cerebellum. Normal basal cisterns. Normal bilateral temporal bones. Normal bilateral internal auditory canals. No demonstrated orbital abnormality, within the constraints of a routine brain study. Normal visualized paranasal sinuses. Normal calvarium and skull base. Normal visualized soft tissue structures. Normal visualized upper cervical spine. MRI/Brain without Contrast IMPRESSION: Involutional changes of the brain, as described above. Electronically Signed: David Silva MD at 10:43 EDT , Service support ,
[2021-02-11] MEDS: Tamsulosin HCl 0.4 MG Capsule PO (17:16)
[2021-02-11] MEDS: Sertraline 100 MG Tablet PO (21:26)
[2021-02-11] MEDS: Spironolactone 25 MG Tablet PO (21:26)
[2021-02-11] MEDS: Pravastatin 40 MG Tablet PO (21:26)
[2021-02-11] MEDS: Mirabegron 50 MG TAB.ER.24H 100 MG PO (21:27)
[2021-02-11] MEDS: Pramipexole Di-HCl 0.5 MG Tablet PO (21:27)
[2021-02-12] VITALS (10 sets, daily range): BP systolic 101–119; BP diastolic 54–63; PULSE 77–89; RESP 18–20; TEMP 36.6–37.2; O2SAT 94–96
[2021-02-12] MEDS: 0.9% Normal Saline 1,000 ML 75 ML IV (05:40)
[2021-02-12 08:53] LABS: Absolute Lymphocyte Count 1.01 X10^3/uL (0.83-4.51); Absolute Neutrophil Count 5.6 X10^3/uL (2.0-7.7); Basophil# 0.01 X10^3/uL; Basophil% 0.1 % (0-1); Eosinophil# 0.05 X10^3/uL; Eosinophils% 0.7 % (0-5); Hematocrit 35.2 % (37-47); Hemoglobin 11.4 g/dL (12.0-15.0); Lymphocyte # 1.01 X10^3/ul (0.83-4.51); Lymphocyte % 14.2 % (19-41); Mean Corp Hgb Conc 32.4 g/dL (32-36); Mean Corpuscular Hgb 29.5 pg (27.0-32.0); Mean Platelet Vol. 10.1 fl (6.2-12.0); Monocyte# 0.39 X10^3/uL; Monocyte% 5.5 % (0-10); NRBC Flagged by Analyzer 0 % (0-5); Neutrophil # 5.62 X10^3/uL (2.7-7.7); Neutrophil % 78.9 % (47-70); POSITIVE MORPHOLOGY YES; Platelet Count 131 K/mm3 (150-450); RBC Distribution Width CV 13.3 % (11.6-14.6); RBC Distribution Width SD 44.7 fl (35.1-43.9); Red Blood Count 3.87 M/mm3 (4.2-5.4); White Blood Count 7.1 K/mm3 (4.4-11.0)
[2021-02-12 08:54] LABS: Differential Indicated SCAN CRITERIA MET
[2021-02-12] MEDS: Aspirin 81 MG TAB.CHEW PO (08:59)
[2021-02-12] MEDS: Pantoprazole Sodium 40 MG Tablet PO (09:00)
[2021-02-12] MEDS: Gabapentin 600 MG Tablet PO (09:00)
[2021-02-12] MEDS: Loratadine 10 MG Tablet PO (09:00)
[2021-02-12] MEDS: Famotidine 20 MG Tablet PO (09:00)
[2021-02-12] MEDS: Heparin Injection 5,000 UNITS/ML Syringe 5000 UNITS SC (09:00)
[2021-02-12] MEDS: Cholecalciferol (VIT D3) 25 MCG TABLET (1,000 UNITS) 50 MCG PO (09:01)
[2021-02-12] MEDS: Ezetimibe 10 MG Tablet PO (09:01)
[2021-02-12] MEDS: Montelukast 10 MG Tablet PO (09:01)
[2021-02-12] MEDS: Lacosamide 100 MG Tablet PO ×2 (09:12→20:34)
[2021-02-12 09:22] LABS: Anion Gap 10 (5-15); BUN 21 mg/dL (7-18); Calcium,Total 7.5 mg/dL (8.5-10.1); Chloride 109 mmol/L (98-107); Creatinine, Serum 0.78 mg/dL (0.55-1.02); EST Glomerular Filtration Rate 76 mL/min (>60); Est Glom Filt Rate - Afr Amer 92 mL/min (>60); Estimated Creatinine Clearance 47.58 ml/min; Glucose 135 mg/dL (74-106); Potassium 3.8 mmol/L (3.5-5.1); Sodium Level 143 mmol/L (136-145)
--- NOTE | 2021-02-12 10:53 | CASEMGMT ---
MAN CASE assessment: Face to Face with patient/ for initial transition planning/care coordination assessment. MAN CASE introduced self and role at [facility], pt's voices understanding and consents to assessment. Pt is sitting up in bed and alert but does not answers questions, answers questions for pt. states pt/him just moved to the area in June 2020. Care providers, pharmacy, and demographics verified. Presentation: found this am with right sided facial droop, incontinent, aphasia, decreased loc Admitting dx: TIA/CVA PCP: Parvin Specialists: Thony uro; Ten pulm; Niko, neuro at [facility], Juan Daniel, ENT Preferred Pharmacy: [facility] Insurance: [facility] A/B, UMR Prescription Benefit: [facility] Living Will/HPOA: Per , pt has LW/HPOA and is aware they are not on file at [facility]. states he is pt's HPOA. LNOK: Misael Alcaraz, ; Gerri Molina, sister Living Arrangements: Pt lives with in 1 story home with no steps and states no concerns at home. Pt has an aide 6 hours/day, 6 days/week, M-Sat. Per , aides help pt with ADL's. Transportation: drives and states no transportation concerns. DME/HHC: Pt has the following DME: walker, lift chair, raised toilet seat, and lift in shower. Per , pt has had HHC in the past and is interested in rehab here at [facility] for pt. is unsure whether he would like IP rehab or TCU. Adelaida cordova, voices understanding. Per , pt has never been to SNF. interested in rehab for pt. Pt is retired. Pt does not smoke cigarettes or drink ETOH. Pt/ voice no further concerns/needs. CM to follow for PT/OT evals and any further discharge planning/needs. Advised pt to ask for CM if any further questions/concerns/needs arise, voices understanding. Pt/ Goal: Rehab Plan: TBD, pending PT/OT evals, family decision. [place] MAN CASE
[2021-02-12] MEDS: Ceftriaxone 1 GM/50 ML BAG IV (10:58)
--- NOTE | 2021-02-12 11:12 | CASEMGMT ---
Patient's would like patient to go to rehab here at [facility] either TCU or The Rehab Unit. SW called and left a message for Ya on referral phone. Kitty OROZCO
--- NOTE | 2021-02-12 12:36 | CASEMGMT ---
SW did not complete a PHQ 9 with patient as she did not have a Stroke or TIA and she has Dementia (A&O X1). Kitty Kramer MSW PMA
--- NOTE | 2021-02-12 12:37 | CASEMGMT ---
YOANDY spoke with Ya and she can take patient in TCU. YOANDY met with patient's . Introduced self and role at [facility]. SW let him know that TCU would have a bed for patient. SW let him know that a patient in TCU tested positive for COVID. That patient is in quarantine, but there is no visitation in TCU right now. He was concerned about this. YOANDY told him that if patient is having a hard time managing they can make exceptions. He asked if he changed his mind would home health be possible. YOANDY told him that home health can be arranged. Plan: d/c to [facility] TCU Kitty OROZCO
--- NOTE | 2021-02-12 13:43 | PN.HOSP_ITS ---
Subjective Subjective Patient seen and examined. She was alert but still had some confusion. She had no active complaints. Review of systems otherwise negative. She has remained hemodynamically stable. Objective Data Objective Data Vital Signs: Vital Signs Temp Pulse Resp BP Pulse Ox 98.9 F 84 20 H 105/54 L 96 02/12/21 08:45 02/12/21 11:01 02/12/21 08:45 02/12/21 08:45 02/12/21 08:45 Oxygen Flow Rate (L/min) 4 Oxygen Delivery Method Nasal Cannula Weight: 143 lb 4.807 oz Body Mass Index (BMI) 20.0 Intake & Output: Intake and Output for Last 24 Hours 02/10/21 02/11/21 02/12/21 23:59 23:59 23:59 Intake Total 827.50 / 827.50 2691.67 / 2691.67 836.25 / 836.25 Output Total 475 / 475 450 / 450 Balance 827.50 / 827.50 2216.67 / 2216.67 386.25 / 386.25 Lab / Micro Data Result Diagrams: 02/12/21 08:46 02/12/21 08:46 Labs: Laboratory Results - last 24 hr 02/12/21 02/12/21 08:46 08:46 WBC 7.1 RBC 3.87 L Hgb 11.4 L Hct 35.2 L MCV 91.0 MCH 29.5 MCHC 32.4 RDW Std Deviation 44.7 H RDW Coeff of Jorge 13.3 Plt Count 131 L MPV 10.1 Immature Gran % (Auto) 0.600 Neut % (Auto) 78.9 H Lymph % (Auto) 14.2 L [place] % (Auto) 5.5 Eos % (Auto) 0.7 Baso % (Auto) 0.1 Absolute Neuts (auto) 5.6 Absolute Lymphs (auto) 1.01 Nucleated RBC % 0 Sodium 143 Potassium 3.8 Chloride 109 H Carbon Dioxide 24.0 Anion Gap 10 BUN 21 H Creatinine 0.78 Estim Creat Clear Calc 47.58 Est GFR (MDRD) Af Amer 92 Est GFR (MDRD) Non-Af 76 BUN/Creatinine Ratio 27.0 H Glucose 135 H Calcium 7.5 L Rhythm Strip Rhythm Strip: Sinus Tach Rate: 102 Ectopy: None Physical Exam Const alert and no apparent distress Orientation / Consciousness: confused Exam Limitations: no limitations HEENT head/scalp atraumatic and moist oral mucous membranes Head and Scalp: normocephalic Eyes PERRL, EOMs intact bilaterally and conjunctivae normal Neck no lymphadenopathy Resp normal respiratory effort, no retractions, no use of accessory muscles and clear to auscultation bilaterally Cardio regular rate, regular rhythm, S1 normal heart sound, S2 normal heart sound and no murmurs GI normal to inspection, nondistended, normoactive bowel sounds, soft to palpation, non-tender and non-distended Extremity normal to inspection, full ROM and no clubbing, cyanosis or edema Peripheral Pulses: Yes pulses 2+ throughout Skin no rashes or lesions noted Neuro moves all extremities Neuro Narrative: confused Sensorium / Orientation: awake and alert Psych affect normal Assessment & Plan Assessment/Plan (1) AMS (altered mental status): QUALIFIERS: Altered mental status type: delirium Qualified Code(s): R41.0 - Disorientation, unspecified PLAN: #Acute metabolic encephalopathy due to UTI * on IV ceftriaxone * CT of the brain was negative, and CTA of the head and neck were also negative. * blood and urine cultures * #VITALIY: resolved. #UTI: on ceftriaxone. #Esophageal dysphagia s/p dilatation: stable #Advanced dementia: has baseline dementia #ERIS: stable. #Hyperlipidemia: on statin #Osteoporosis: on denosumab DVT prophylaxis: heparin Charges/Coding Visit Charges Inpatient E&M: 31088 Subs Hosp L2
--- NOTE | 2021-02-12 18:16 | NURSING ---
FENCE LABORER reports patient having trouble chewing/swallowing mechanical soft diet foods.
[2021-02-12] MEDS: Tamsulosin HCl 0.4 MG Capsule PO (18:18)
--- NOTE | 2021-02-12 18:20 | NURSING ---
Patient able to swallow applesauce without difficulty.
[2021-02-12] MEDS: 0.9% Normal Saline 1,000 ML 150 ML IV (19:00)
[2021-02-12] MEDS: Mirabegron 50 MG TAB.ER.24H 100 MG PO (20:33)
[2021-02-12] MEDS: Heparin Injection (Vial) 5,000 UNIT/ML VIAL 5000 UNIT SC (20:33)
[2021-02-12] MEDS: Sertraline 100 MG Tablet PO (20:33)
[2021-02-12] MEDS: Pramipexole Di-HCl 0.5 MG Tablet PO (20:34)
[2021-02-12] MEDS: Pravastatin 40 MG Tablet PO (20:34)
[2021-02-12] MEDS: Spironolactone 25 MG Tablet PO (20:34)
[2021-02-13] VITALS (7 sets, daily range): BP systolic 123–133; BP diastolic 62–90; PULSE 74–77; RESP 16–18; TEMP 36.8–36.9; O2SAT 93–96
[2021-02-13] MEDS: 0.9% Normal Saline 1,000 ML 150 ML IV ×2 (01:22→08:26)
[2021-02-13 05:56] LABS: Absolute Lymphocyte Count 1.16 X10^3/uL (0.83-4.51); Absolute Neutrophil Count 3.6 X10^3/uL (2.0-7.7); Basophil# 0.03 X10^3/uL; Basophil% 0.6 % (0-1); Eosinophil# 0.12 X10^3/uL; Eosinophils% 2.3 % (0-5); Hematocrit 31.6 % (37-47); Hemoglobin 10.2 g/dL (12.0-15.0); Lymphocyte # 1.16 X10^3/ul (0.83-4.51); Lymphocyte % 21.8 % (19-41); Mean Corp Hgb Conc 32.3 g/dL (32-36); Mean Corpuscular Hgb 29.1 pg (27.0-32.0); Mean Corpuscular Volume 90.3 fL (81-99); Mean Platelet Vol. 10.6 fl (6.2-12.0); Monocyte# 0.33 X10^3/uL; Monocyte% 6.2 % (0-10); NRBC Flagged by Analyzer 0 % (0-5); Neutrophil # 3.64 X10^3/uL (2.7-7.7); Neutrophil % 68.3 % (47-70); Platelet Count 125 K/mm3 (150-450); RBC Distribution Width CV 13.2 % (11.6-14.6); RBC Distribution Width SD 43.8 fl (35.1-43.9); White Blood Count 5.3 K/mm3 (4.4-11.0)
[2021-02-13 06:26] LABS: Anion Gap 5 (5-15); BUN 13 mg/dL (7-18); Chloride 113 mmol/L (98-107); Creatinine, Serum 0.56 mg/dL (0.55-1.02); EST Glomerular Filtration Rate 110 mL/min (>60); Est Glom Filt Rate - Afr Amer 133 mL/min (>60); Estimated Creatinine Clearance 47.58 ml/min; Glucose 93 mg/dL (74-106); Potassium 3.5 mmol/L (3.5-5.1); Sodium Level 140 mmol/L (136-145)
--- NOTE | 2021-02-13 08:15 | NURSING ---
called lab to determine if urine sample for culture was collected with U/A sample, they reported that culture specimens are only good for 24 hours so new urine culture would need to be obtained.
[2021-02-13] MEDS: Aspirin 81 MG TAB.CHEW PO (08:46)
[2021-02-13] MEDS: Loratadine 10 MG Tablet PO (08:49)
[2021-02-13] MEDS: Famotidine 20 MG Tablet PO (08:49)
[2021-02-13] MEDS: Pantoprazole Sodium 40 MG Tablet PO (08:49)
[2021-02-13] MEDS: Heparin Injection (Vial) 5,000 UNIT/ML VIAL 5000 UNIT SC (08:49)
[2021-02-13] MEDS: Ezetimibe 10 MG Tablet PO (08:50)
[2021-02-13] MEDS: Montelukast 10 MG Tablet PO (08:50)
[2021-02-13] MEDS: Cholecalciferol (VIT D3) 25 MCG TABLET (1,000 UNITS) 50 MCG PO (08:50)
[2021-02-13] MEDS: Ceftriaxone 1 GM/50 ML BAG IV (09:47)
[2021-02-13] MEDS: Lacosamide 100 MG Tablet PO (09:47)
--- NOTE | 2021-02-13 10:49 | CASEMGMT ---
RN spoke with patient's and he decided he would like patient to go to TCU. Plan: d/c to [facility] TCU Kitty OROZCO
--- NOTE | 2021-02-13 12:04 | CASEMGMT ---
YOANDY spoke with patient's and let him know the plan is to get patient to TCU today. He was concerned as she has an appt with Dr Caal tomorrow at 142g. YOANDY told him SW will pass along this information to TCU. YOANDY called Ya on referral phone and let her know about appt and she will make a note on her paperwork she is sending to TCU. Kitty OROZCO
--- NOTE | 2021-02-13 14:48 | PCM.DC.SUM ---
Providers Date of Admission: 02/11/21 Primary Care Physician: Dr. Bryant Melendrez MD Reason For Visit: TIA/CVA Diagnosis Discharge Diagnosis (1) AMS (altered mental status): Status: Acute Code(s): R41.82 - Altered mental status, unspecified Qualifiers: Altered mental status type: delirium Qualified Code(s): R41.0 - Disorientation, unspecified Medications at Discharge Home Medications iron,carbonyl 65 mg-vitamin C 125 mg tablet,delayed release 1 tab PO QODAY 06/28/20 lacosamide 100 mg tablet 100 mg PO BID 06/28/20 pramipexole 0.25 mg tablet 0.5 mg PO QHS 06/28/20 spironolactone 25 mg tablet 25 mg PO QHS 06/28/20 cholecalciferol (vitamin D3) 50 mcg (2,000 unit) capsule 50,000 unit PO QMONTH cap 08/02/20 furosemide 20 mg tablet 20 mg PO DAILY #90 tablet 11/06/20 mirabegron 50 mg tablet,extended release 24 hr 100 mg PO QHS tablet 11/06/20 tolterodine 4 mg capsule,extended release 24 hr 4 mg PO DAILY cap 11/06/20 gabapentin 300 mg capsule 600 mg PO BID #360 cap 11/08/20 denosumab 60 mg/mL subcutaneous syringe 60 mg SC [id number] #1 ml 11/21/20 ezetimibe 10 mg tablet 10 mg PO DAILY #90 tablet 12/04/20 Zyrtec 10 mg PO DAILY 01/29/21 cholecalciferol (vitamin D3) [Vitamin D3] 50 mcg PO DAILY 01/29/21 aspirin 81 mg PO DAILY #0 tab 02/02/21 esomeprazole magnesium 40 mg capsule,delayed release 40 mg PO DAILY #90 cap 02/06/21 hyoscyamine sulfate 0.125 mg tablet 0.125 mg PO BID 90 Days #180 tab 02/06/21 montelukast 10 mg tablet 10 mg PO DAILY #90 tab 02/06/21 nitroglycerin 0.4 mg sublingual tablet 0.4 mg SUBLINGUAL ONCE PRN #90 tab 02/06/21 pravastatin 40 mg tablet 40 mg PO DAILY #90 tab 02/06/21 sertraline 100 mg tablet 100 mg PO QHS #90 tab 02/06/21 cefdinir 300 mg PO BID #10 cap 02/13/21 Hospital Course Operations None Procedures None Summary of Care Provided Minutes Spent on Discharge: 45 Hospital Course: Patient is a 80-year-old female with a past medical history as outlined below who was admitted through the ED on 02/10/2021 with a complaint of altered mental status. Patient usually ambulates with a walker but mostly in a wheelchair and also has advanced dementia but lives at home with her . On the day of admission, she had gone out earlier in the day and going to have a meal at a restaurant and was in her normal state of health. However subsequently she had an episode of incontinence whilst in bed and noticed that she was very lethargic and weak. She was also noted to have a slight right-sided facial droop. therefore called EMS and on arrival a stroke alert was called. CT of the brain done was negative for any acute intracranial pathology chest x-ray showed right hilar and left basilar airspace disease which was nonspecific and could represent atelectasis or scarring. Urinalysis showed evidence of UTI and CTA of the head and neck showed minimal atherosclerotic plaque in the right bulb region without significant stenosis and unremarkable internal carotid arteries as well as patent bilateral vertebral arteries. Labs done also showed evidence of VITALIY. She was admitted and hydrated with IV fluids and started on IV ceftriaxone for UTI. Kidney function improved with hydration. Patient's mentation gradually improved though she remained confused. was agreeable to patient going to assisted facility. Urine culture was pending at time of discharge so she was discharged with a prescription for p.o. Omnicef 300 mg twice daily for 5 days. She is to follow-up with her primary care doctor in 1 to 2 weeks. Patient seen and examined prior to discharge. She felt well and had no complaints. Review of systems otherwise negative. was also at bedside and his questions and concerns were answered with regards to her UTI and his concerns about whether she was getting enough fluids at home as he thought she was getting adequate fluids but did not understand how she may have been dehydrated. counseled that UTI and dehydration are common in older patients. Labs and vitals reviewed, and home meds reviewed and reconciled. Physical Exam Narrative Physical exam: General: Alert, confused, oriented to self, cooperative, No apparent distress, appears frail HEENT: Atraumatic Oral: Moist Mucosa Neck: Supple Lungs: Clear to auscultation Cardiovascular: HS I+II, regular, no murmurs Abdomen: Bowel Sounds Present, Soft, Non Tender Extremities: No edema Const alert and no apparent distress Constitutional Narrative: confused General Appearance: cooperative Orientation / Consciousness: awake and confused Exam Limitations: no limitations HEENT normocephalic, head/scalp atraumatic and moist oral mucous membranes Eyes PERRL, EOMs intact bilaterally and conjunctivae normal Neck no lymphadenopathy Resp normal respiratory effort, no retractions, no use of accessory muscles and clear to auscultation bilaterally Cardio regular rate, regular rhythm, S1 normal heart sound, S2 normal heart sound and no murmurs GI normal to inspection, nondistended, normoactive bowel sounds, soft to palpation, non-tender and non-distended Extremity normal to inspection, full ROM and no clubbing, cyanosis or edema Skin no rashes or lesions noted Neuro moves all extremities Neuro Narrative: confused Sensorium / Orientation: awake and alert Psych affect normal Weight / BMI Weight Weight: 143 lb 4.807 oz Body Mass Index (BMI) 20.0 ABG / Lab / Microbiology Data Result Diagrams: 02/13/21 05:10 02/13/21 05:10 Laboratory: Laboratory Results - last 24 hr 02/13/21 02/13/21 05:10 05:10 WBC 5.3 RBC 3.50 L Hgb 10.2 L Hct 31.6 L MCV 90.3 MCH 29.1 MCHC 32.3 RDW Std Deviation 43.8 RDW Coeff of Jorge 13.2 Plt Count 125 L MPV 10.6 Immature Gran % (Auto) 0.800 Neut % (Auto) 68.3 Lymph % (Auto) 21.8 [place] % (Auto) 6.2 Eos % (Auto) 2.3 Baso % (Auto) 0.6 Absolute Neuts (auto) 3.6 Absolute Lymphs (auto) 1.16 Nucleated RBC % 0 Sodium 140 Potassium 3.5 Chloride 113 H Carbon Dioxide 22.0 Anion Gap 5 BUN 13 Creatinine 0.56 Estim Creat Clear Calc 47.58 Est GFR (MDRD) Af Amer 133 Est GFR (MDRD) Non-Af 110 BUN/Creatinine Ratio 23.0 H Glucose 93 Calcium 7.0 L D/C Instructions Discharge Diet: 2000 mg Sodium Diet Discharge Activity: Return to Normal Activity Weight Bearing Status: Weight bearing as tolerated Call your doctor if you observe: Fever of 101 or Higher, Inability to urinate, Swelling in the ankles, Increased palpitations (irregular heartbeat) and Uncontrolled pain Meaningful Use Info Meaningful Use Diagnoses (Choose all that apply): None applicable Discharge Plan Admission Admit Date/Time: 02/11/21 21:50 Primary Reason for Your Visit: acute metabolic encephalopathy, UTI Attending Provider: Allison Becker Primary Care Provider: Bryant Melendrez Instructions Patient Instructions: Acute Kidney Failure Dc, ED CYSTITIS Female Adult Discharge Orders/Prescriptions Prescriptions: New cefdinir 300 mg capsule 300 mg PO BID Qty: 10 RF: 0 Continued Vimpat 100 mg tablet 100 mg PO BID RF: 0 Vitron-C 65 mg iron- 125 mg tablet,delayed release (DR/EC) 1 tab PO QODAY RF: 0 spironolactone [Aldactone] 25 mg tablet 25 mg PO QHS RF: 0 pramipexole [Mirapex] 0.25 mg tablet 0.5 mg PO QHS RF: 0 cholecalciferol (vitamin D3) 50 mcg (2,000 unit) capsule 50,000 unit PO QMONTH RF: 0 Myrbetriq 50 mg tablet extended release 24 hr 100 mg PO QHS RF: 0 tolterodine [Detrol LA] 4 mg capsule,extended release 24hr 4 mg PO DAILY RF: 0 furosemide [Lasix] 20 mg tablet 20 mg PO DAILY Qty: 90 RF: 2 esomeprazole magnesium [Nexium] 40 mg capsule,delayed release(DR/EC) 40 mg PO DAILY Qty: 90 RF: 3 hyoscyamine sulfate 0.125 mg tablet 0.125 mg PO BID 90 Days Qty: 180 RF: 3 montelukast [Singulair] 10 mg tablet 10 mg PO DAILY Qty: 90 RF: 3 pravastatin 40 mg tablet 40 mg PO DAILY Qty: 90 RF: 3 nitroglycerin 0.4 mg tablet, sublingual 0.4 mg SUBLINGUAL ONCE PRN (Reason: CP) Qty: 90 RF: 1 sertraline [Zoloft] 100 mg tablet 100 mg PO QHS Qty: 90 RF: 3 cholecalciferol (vitamin D3) [Vitamin D3] 50 mcg (2,000 unit) Capsule 50 mcg PO DAILY RF: 0 Zyrtec 10 mg Capsule 10 mg PO DAILY RF: 0 aspirin 81 mg tablet,delayed release (DR/EC) 81 mg PO DAILY Qty: 0 RF: 0 gabapentin 300 mg capsule 600 mg PO BID Qty: 360 RF: 3 Prolia 60 mg/mL syringe 60 mg SC [id number] Qty: 1 RF: 2 ezetimibe [Zetia] 10 mg tablet 10 mg PO DAILY Qty: 90 RF: 2 Referrals / Follow Up: Bryant Melendrez MD [Primary Care Provider] - In 1 Week Disposition Disposition (needs filled in before D/C Order can be placed): Half-Way Facility Charges/Coding Visit Charges Inpatient E&M: 78574 Disch Hosp
--- NOTE | 2021-02-13 15:05 | PCM.TXEXTCAR ---
Diet 02/12/21 15:05 Diet: Regular - General Food consistency:: Mechanical (Minced/Moist) Liquid Consistency:: Regular/Thin Is pt able to select menu?: No Diet Comments: 1:1supervision/assist; no straws, upright following meal 30 -60 minutes Problem/Diagnosis (1) AMS (altered mental status): Status: Acute Allergies/Procedures Done in Hospital Allergies doxycycline Allergy (Mild, Verified 02/06/21 13:03) Vomiting oxycodone [From Percocet] Allergy (Mild, Verified 02/06/21 13:03) Confusion acetaminophen [From Darvocet-N] Allergy (Verified 02/06/21 13:03) Other lamotrigine [From Lamictal] Allergy (Verified 02/06/21 13:03) Lip Swelling latex Allergy (Verified 02/06/21 13:03) Rash moxifloxacin HCl [From Avelox] Allergy (Verified 02/06/21 13:03) Other propoxyphene napsylate [From Darvocet-N] Allergy (Verified 02/06/21 13:03) Other zolpidem tartrate [From Ambien] Adverse Reaction (Verified 02/06/21 13:03) Other Type of Care/Length of Stay Estimated LOS: Convalescent Care Less Than 30 days Type of Care Needed: Skilled Rehab Potential: Fair Prognosis: Fair Additional Orders/Day of Discharge Day of Discharge: 02/13/21 Dietary and Speech Recommendations Dietitian Recommendations/Changes: Continue regular diet w/ textures per SOCIAL SERVICE TECHNICIAN. Will provide ONS as indicated. Speech Linguistic Eval Summary: Pt. presents with severe word finding difficulties. Pt. was oriented to name, but perseverated on name and unable to respond to other orientation questions. Pt. was able to state her husbands name. Pt. labeled objects in the room 1/5; answer yes/no questions appropriately 1/5; complete sentence x0; automatic naming tasks 2/2 with initial prompt however, she continued with task until therapist prompted her to stop. Pt. was able to correctly name/respond to initial question, then perseverated on response and couldn't answer following questions correctly. Pt. was able to follow 1-step directions with 50% accuracy. Pt. became frustrated and was aware of difficulties. As frustration appeared, she decreased attempts at responding to tasks. Discharge Plan Admission Admit Date/Time: 02/11/21 21:50 Primary Reason for Your Visit: acute metabolic encephalopathy, UTI Attending Provider: Allison Becker Primary Care Provider: Bryant Melendrez Instructions Patient Instructions: Acute Kidney Failure Dc, ED CYSTITIS Female Adult Discharge Orders/Prescriptions Prescriptions: New cefdinir 300 mg capsule 300 mg PO BID Qty: 10 RF: 0 Continued Vimpat 100 mg tablet 100 mg PO BID RF: 0 Vitron-C 65 mg iron- 125 mg tablet,delayed release (DR/EC) 1 tab PO QODAY RF: 0 spironolactone [Aldactone] 25 mg tablet 25 mg PO QHS RF: 0 pramipexole [Mirapex] 0.25 mg tablet 0.5 mg PO QHS RF: 0 cholecalciferol (vitamin D3) 50 mcg (2,000 unit) capsule 50,000 unit PO QMONTH RF: 0 Myrbetriq 50 mg tablet extended release 24 hr 100 mg PO QHS RF: 0 tolterodine [Detrol LA] 4 mg capsule,extended release 24hr 4 mg PO DAILY RF: 0 furosemide [Lasix] 20 mg tablet 20 mg PO DAILY Qty: 90 RF: 2 esomeprazole magnesium [Nexium] 40 mg capsule,delayed release(DR/EC) 40 mg PO DAILY Qty: 90 RF: 3 hyoscyamine sulfate 0.125 mg tablet 0.125 mg PO BID 90 Days Qty: 180 RF: 3 montelukast [Singulair] 10 mg tablet 10 mg PO DAILY Qty: 90 RF: 3 pravastatin 40 mg tablet 40 mg PO DAILY Qty: 90 RF: 3 nitroglycerin 0.4 mg tablet, sublingual 0.4 mg SUBLINGUAL ONCE PRN (Reason: CP) Qty: 90 RF: 1 sertraline [Zoloft] 100 mg tablet 100 mg PO QHS Qty: 90 RF: 3 cholecalciferol (vitamin D3) [Vitamin D3] 50 mcg (2,000 unit) Capsule 50 mcg PO DAILY RF: 0 Zyrtec 10 mg Capsule 10 mg PO DAILY RF: 0 aspirin 81 mg tablet,delayed release (DR/EC) 81 mg PO DAILY Qty: 0 RF: 0 gabapentin 300 mg capsule 600 mg PO BID Qty: 360 RF: 3 Prolia 60 mg/mL syringe 60 mg SC [id number] Qty: 1 RF: 2 ezetimibe [Zetia] 10 mg tablet 10 mg PO DAILY Qty: 90 RF: 2 Referrals / Follow Up: Bryant Melendrez MD [Primary Care Provider] - In 1 Week Disposition Disposition (needs filled in before D/C Order can be placed): Custodial Facility
--- NOTE | 2021-02-13 15:13 | PHA.DC.MR ---
Pharmacy Service has performed discharge medication reconciliation for this patient. The patient's discharge medication list was reviewed for discrepancies and discrepancies were resolved. Home Medications iron,carbonyl 65 mg-vitamin C 125 mg tablet,delayed release 1 tab PO QODAY 06/28/20 lacosamide 100 mg tablet 100 mg PO BID 06/28/20 pramipexole 0.25 mg tablet 0.5 mg PO QHS 06/28/20 spironolactone 25 mg tablet 25 mg PO QHS 06/28/20 cholecalciferol (vitamin D3) 50 mcg (2,000 unit) capsule 50,000 unit PO QMONTH cap 08/02/20 furosemide 20 mg tablet 20 mg PO DAILY #90 tablet 11/06/20 mirabegron 50 mg tablet,extended release 24 hr 100 mg PO QHS tablet 11/06/20 tolterodine 4 mg capsule,extended release 24 hr 4 mg PO DAILY cap 11/06/20 gabapentin 300 mg capsule 600 mg PO BID #360 cap 11/08/20 denosumab 60 mg/mL subcutaneous syringe 60 mg SC [id number] #1 ml 11/21/20 ezetimibe 10 mg tablet 10 mg PO DAILY #90 tablet 12/04/20 Zyrtec 10 mg PO DAILY 01/29/21 cholecalciferol (vitamin D3) [Vitamin D3] 50 mcg PO DAILY 01/29/21 aspirin 81 mg PO DAILY #0 tab 02/02/21 esomeprazole magnesium 40 mg capsule,delayed release 40 mg PO DAILY #90 cap 02/06/21 hyoscyamine sulfate 0.125 mg tablet 0.125 mg PO BID 90 Days #180 tab 02/06/21 montelukast 10 mg tablet 10 mg PO DAILY #90 tab 02/06/21 nitroglycerin 0.4 mg sublingual tablet 0.4 mg SUBLINGUAL ONCE PRN #90 tab 02/06/21 pravastatin 40 mg tablet 40 mg PO DAILY #90 tab 02/06/21 sertraline 100 mg tablet 100 mg PO QHS #90 tab 02/06/21 cefdinir 300 mg PO BID #10 cap 02/13/21
--- NOTE | 2021-02-13 18:16 | NURSING ---
1600- report called to Justine in TCU, saline lock left in place, pt transferred to TCU bed 10, supper order called down and requested to be delivered to TCU
== END 2021-02-13 16:23 | DRG 689 ==
LOC: ED 09:54 → PCU 12:45
PROVIDERS: Admitting Provider Internal Medicine; Emergency Provider Emergency Medicine; PCP Internal Medicine; Visit Provider Student in an Organized Health Care Education/Training Program
DX: N39.0 Urinary tract infection, site not specified (principal); G93.41 Metabolic encephalopathy; N17.9 Acute kidney failure, unspecified; E86.0 Dehydration; F03.90 Unspecified dementia, unspecified severity, without behavioral disturbance, psychotic disturbance, mood disturbance, and anxiety; I10 Essential (primary) hypertension; K21.9 Gastro-esophageal reflux disease without esophagitis; G47.33 Obstructive sleep apnea (adult) (pediatric); G40.909 Epilepsy, unspecified, not intractable, without status epilepticus; M81.0 Age-related osteoporosis without current pathological fracture; R13.14 Dysphagia, pharyngoesophageal phase; Z66 Do not resuscitate; E78.5 Hyperlipidemia, unspecified; F32.9 Major depressive disorder, single episode, unspecified; K44.9 Diaphragmatic hernia without obstruction or gangrene; R29.6 Repeated falls; Z82.49 Family history of ischemic heart disease and other diseases of the circulatory system; Z82.3 Family history of stroke; Z90.49 Acquired absence of other specified parts of digestive tract; Z88.1 Allergy status to other antibiotic agents; Z88.6 Allergy status to analgesic agent; Z91.040 Latex allergy status; Z95.5 Presence of coronary angioplasty implant and graft; Z86.73 Personal history of transient ischemic attack (TIA), and cerebral 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
CPT/HCPCS: 36415; 70450; 70496; 70498; 70551; 71045; 80048; 80053; 80061; 81001; 82962; 84484; 85025; 85610; 85730; 87086; 87426; 92507; 92523; 92526; 92610; 93005; 94762; 97110; 97162; 97166; 97530; 97535; 99285; J7030; J7040; J7050; Q9967; A4216

== ENCOUNTER 2021-02-13 16:44 | Inpatient (IN) | payer MEDICARE, OTHER, SELFPAY ==
[2021-02-13 17:06] VITALS: BP 128/71; PULSE 76; RESP 16; TEMP 36.1; O2SAT 95
--- NOTE | 2021-02-13 18:42 | NURSING ---
pt refused to take cefdinir, offered several times and pt continued to say no. will have next shift attempt to administer.
--- NOTE | 2021-02-13 19:52 | HP.PCM_ITS ---
HPI - General General Date of Admission: 02/13/21 HPI Narrative 02/10/2021 SHELDON ALAN, is a 80 Female who presents to [facility] Emergency Department with neurologic signs, symptoms. 02/10/2021 EKG sinus tachycardia, Anteroseptal infarct, age undetermined. Stroke like symptoms, last well 9.5 hours ago. Right facial droop, confused. Stroke team activated, CT brain negative. CTA head, neck negative. Elevated WBC, Acute kidney injury. Rocephin, IV fluids for urinary tract infection, acute kidney injury. 02/10/2021 Admit to Hospital. Evaluate for stroke. IV fluids for acute kidney injury. Rocephin IV for urinary tract infection. 02/11/2021 Rocephin IV for urinary tract infection. Acute kidney injury improving. 02/11/2021 MRI brain negative acute stroke. 02/12/2021 Acute kidney injury resolved. Urine culture pending, Finish UTI treatment with Cefdinir 300MG BID x 5 days. 02/13/2021 Admit to TCU with debility, here for rehabilitation, strengthening, prior to discharge home with . Resident confused. [facility] Medical History aquired autoimmune encephalopathy Arthritis Asthma Back pain Bladder disease Cancer Cardiology follow-up encounter Dementia Dementia Depression Difficulty swallowing DVT (deep venous thrombosis) Falls Falls frequently Gastric reflux h/o back surgery Health care maintenance Heart disease High cholesterol History of heart attack History of stress test Hx of echocardiogram Hypertension Low iron Non-smoker Partial complex seizures Restless legs Seizures Shortness of breath on exertion TIA (transient ischemic attack) Walker as ambulation aid Home Medications iron,carbonyl 65 mg-vitamin C 125 mg tablet,delayed release 1 tab PO QODAY 06/28/20 [History Last Taken Unknown] lacosamide 100 mg tablet 100 mg PO BID 06/28/20 [History Last Taken 02/02/21 06:15] pramipexole 0.25 mg tablet 0.5 mg PO QHS 06/28/20 [History Last Taken Unknown] spironolactone 25 mg tablet 25 mg PO QHS 06/28/20 [History Last Taken Unknown] cholecalciferol (vitamin D3) 50 mcg (2,000 unit) capsule 50,000 unit PO QMONTH cap 08/02/20 [History Last Taken Unknown] mirabegron 50 mg tablet,extended release 24 hr 100 mg PO QHS tablet 11/06/20 [History Last Taken Unknown] tolterodine 4 mg capsule,extended release 24 hr 4 mg PO DAILY cap 11/06/20 [History Last Taken 02/02/21 06:15] Zyrtec 10 mg PO DAILY 01/29/21 [History Last Taken Unknown] cholecalciferol (vitamin D3) [Vitamin D3] 50 mcg PO DAILY 01/29/21 [History Last Taken Unknown] nitroglycerin 0.4 mg sublingual tablet 0.4 mg SUBLINGUAL ONCE PRN #90 tab 02/06/21 [Rx Last Taken Unknown] Prolia 60 mg SC [id number] 02/13/21 [History Last Taken Unknown] aspirin 81 mg PO DAILY 02/13/21 [History Last Taken Unknown] cefdinir 300 mg PO BID 02/13/21 [History Last Taken Unknown] esomeprazole magnesium [Nexium] 40 mg PO DAILY 02/13/21 [History Last Taken Unknown] ezetimibe [Zetia] 10 mg PO DAILY 02/13/21 [History Last Taken Unknown] furosemide [Lasix] 20 mg PO DAILY 02/13/21 [History Last Taken Unknown] gabapentin 600 mg PO BID 02/13/21 [History Last Taken Unknown] hyoscyamine sulfate 0.125 mg PO BID 02/13/21 [History Last Taken Unknown] montelukast [Singulair] 10 mg PO DAILY 02/13/21 [History Last Taken Unknown] pravastatin 40 mg PO DAILY 02/13/21 [History Last Taken Unknown] sertraline [Zoloft] 100 mg PO QHS 02/13/21 [History Last Taken Unknown] Allergy/AdvReac Type Severity Reaction Status Date / Time doxycycline Allergy Mild Vomiting Verified 02/06/21 13:03 oxycodone [From Percocet] Allergy Mild Confusion Verified 02/06/21 13:03 acetaminophen Allergy Other Verified 02/06/21 13:03 [From Darvocet-N] lamotrigine [From Lamictal] Allergy Lip Verified 02/06/21 13:03 Swelling latex Allergy Rash Verified 02/06/21 13:03 moxifloxacin HCl Allergy Other Verified 02/06/21 13:03 [From Avelox] propoxyphene napsylate Allergy Other Verified 02/06/21 13:03 [From Darvocet-N] zolpidem tartrate AdvReac Other Verified 02/06/21 13:03 [From Ambien] Family History Mother CVA (cerebral vascular accident) Father Myocardial infarction Surgical History H/O heart artery stent H/O kyphoplasty History of appendectomy History of cardiac catheterization History of esophagogastroduodenoscopy (EGD) History of laryngoscopy History of lumpectomy of left breast Hx of cataract extraction Hx of colonoscopy Hx of ventral hernia repair Social History household members: spouse housing: house Smoking Status: Never smoker alcohol intake: current alcohol intake frequency: a few times a week do you feel safe at home: Yes ROS Constitutional Constitutional: Denies chills, fever(s) or weight gain ENT HEENT: Denies headache(s), nasal congestion or nasal discharge Cardiovascular Cardiovascular: Denies chest pain or palpitations Respiratory/Chest Respiratory/Chest: Denies cough, excessive phlegm production or shortness of b reath with exertion Gastrointestinal Gastrointestinal: Denies abdominal pain, nausea or vomiting Genitourinary Genitourinary: Denies dysuria Musculoskeletal Musculoskeletal: Denies joint pain or joint swelling Integumentary Integumentary: Denies rash or wounds Neurologic Neurologic: Denies focal weakness, numbness or tingling Psychiatric Psychiatric: Reports auditory hallucinations; Denies anxiety, depression, homicidal ideation or suicidal ideation Vital Signs Vital Signs Vital Signs: 02/13/21 17:06 Temperature 96.9 F L Temperature Source Temporal Pulse Rate 76 Respiratory Rate 16 Blood Pressure 128/71 H Blood Pressure Mean 90 Blood Pressure Source Monitor Blood Pressure Position Sitting Blood Pressure Location Left Arm Pulse Ox 95 Oxygen Delivery Method Room Air Weight Weight: 69.808 kg Body Mass Index (BMI) 20.0 Physical Exam Const alert and oriented x3 General Appearance: cooperative HEENT normocephalic Eyes PERRL and EOMs intact bilaterally Neck supple, no JVD and no carotid bruits Resp normal respiratory effort, normal air movement and clear to auscultation bilaterally Cardio regular rate and regular rhythm GI normal to inspection, nondistended, normoactive bowel sounds, non-tender and non-distended Extremity normal capillary refill General Extremity: Negative for edema Skin no rashes or lesions noted General Skin Exam: no breakdown Neuro Neuro Narrative: Confused. Psych affect normal Appearance: appropriate Assessment & Plan Assessment/Plan (1) Debility: (2) Encephalopathy: (3) Urinary tract infection: (4) Acute kidney injury: (5) Dehydration: (6) Iron deficiency anemia: (7) Restless leg syndrome: (8) Overactive bladder: (9) Osteoporosis: (10) Hyperlipidemia: (11) Vitamin D deficiency: (12) Gastroesophageal reflux disease: (13) Depression: (14) Edema: PLAN: 80 year old female with below past medical history hospitalized for encephalopathy secondary to urinary tract infection, stroke ruled out, complicat ed by acute kidney injury, dehydration, admitted to TCU with debility, here for rehabilitation, strengthening, prior to discharge home with . * Debility - PT/OT. * Pain - Tylenol 1000MG Q6H PRN pain (1-10). * Bowel - Monitor. * Adult immunization - Administer Prevnar 13, Pneumovax 23, Fluzone, COVID19 vaccine as appropriate. * DVT prophylaxis - Hold, monitor. * Stroke - Aspirin 81MG daily. * Urinary tract infection - Cefdinir 300MG BID thru 02/18/2021, monitor urine culture. * Vitamin D deficiency - D3 50MCG daily, D2 1.25MG Qmonth. * Hyperlipidemia - Pravastatin 40MG QHS, Zetia 10MG daily. * Edema - Lasix 20MG daily, Aldactone 25MG QHS. * Neuropathic pain - Gabapentin 600MG twice daily. * Bladder spasm - Levsin 0.125MG twice daily. * Iron deficiency anemia - Feosol 1 tablet every other day. * Partial Seizures - Vimpat 100MG twice daily. * Allergic Rhinitis - Loratadine 10MG daily, Singulair 10MG daily. * Overactive bladder - Myrbetriq 100MG QHS, Tolterodine 4MG daily. * Coronary artery disease - NTG 0.4MG SL Q5M PRN. * GERD - Pantoprazole 40MG daily. * Restless Leg syndrome - Mirapex 0.5MG QHS. * Depression - Sertraline 100MG QHS, stable chronic chcf use, GDR not recommended.
[2021-02-13 20:45] VITALS: BMI 21.5
--- NOTE | 2021-02-13 21:14 | NURSING ---
Meds crushed and put in applesauce as per report, pt refusing to take meds at this time, keeps saying no, I don't want them. Pinches lips shut and refused multiple attempts. Communication sent to pharmacy to send whole meds and will try again whole in applesauce.
[2021-02-13] MEDS: Spironolactone 25 MG Tablet PO (22:38)
[2021-02-13] MEDS: Sertraline 100 MG Tablet PO (22:38)
[2021-02-13] MEDS: Pramipexole Di-HCl 0.5 MG Tablet PO (22:38)
--- NOTE | 2021-02-13 22:40 | NURSING ---
Pt sat up straight in bed, agreeable to take pills whole, was able to take HS meds whole with lemonade, no distress noted, no coughing noted. HOB kept elevated at this time, explained to pt why.
[2021-02-13] MEDS: Mirabegron 50 MG TAB.ER.24H 100 MG PO (22:48)
[2021-02-14 02:00] VITALS: BP 169/88; PULSE 78; RESP 18; TEMP 36.6; O2SAT 94
[2021-02-14] MEDS: Cefdinir 300 MG Capsule PO ×2 (04:55→20:41)
[2021-02-14] MEDS: Montelukast 10 MG Tablet PO (04:55)
[2021-02-14] MEDS: Tolterodine Tartrate 4 MG CAP.SA PO (04:55)
[2021-02-14] MEDS: Cholecalciferol (VIT D3) 25 MCG TABLET (1,000 UNITS) 50 MCG PO (04:55)
[2021-02-14] MEDS: 0.9% Saline Lock 10 ML Syringe IV ×2 (04:55→18:53)
[2021-02-14] MEDS: Pravastatin 40 MG Tablet PO (04:55)
[2021-02-14] MEDS: Hyoscyamine Sulfate 0.125 MG Tablet PO (04:55)
[2021-02-14] MEDS: Pantoprazole Sodium 40 MG Tablet PO (04:55)
[2021-02-14] MEDS: Loratadine 10 MG Tablet PO (04:55)
[2021-02-14] MEDS: Furosemide 20 MG Tablet PO (04:55)
[2021-02-14] MEDS: Ezetimibe 10 MG Tablet PO (04:55)
[2021-02-14] MEDS: Lacosamide 100 MG Tablet PO ×2 (04:56→17:27)
[2021-02-14 05:53] LABS: Absolute Lymphocyte Count 1.28 X10^3/uL (0.83-4.51); Absolute Neutrophil Count 3.7 X10^3/uL (2.0-7.7); Basophil# 0.03 X10^3/uL; Basophil% 0.5 % (0-1); Eosinophil# 0.23 X10^3/uL; Eosinophils% 4.1 % (0-5); Hematocrit 34.3 % (37-47); Hemoglobin 11.4 g/dL (12.0-15.0); Lymphocyte # 1.28 X10^3/ul (0.83-4.51); Lymphocyte % 22.8 % (19-41); Mean Corp Hgb Conc 33.2 g/dL (32-36); Mean Corpuscular Hgb 29.2 pg (27.0-32.0); Mean Corpuscular Volume 87.9 fL (81-99); Mean Platelet Vol. 9.9 fl (6.2-12.0); Monocyte# 0.34 X10^3/uL; NRBC Flagged by Analyzer 0 % (0-5); Neutrophil # 3.66 X10^3/uL (2.7-7.7); Neutrophil % 65.2 % (47-70); Platelet Count 153 K/mm3 (150-450); RBC Distribution Width CV 12.8 % (11.6-14.6); RBC Distribution Width SD 40.7 fl (35.1-43.9); White Blood Count 5.6 K/mm3 (4.4-11.0)
[2021-02-14 06:14] LABS: Anion Gap 7 (5-15); BUN 8 mg/dL (7-18); BUN/Creat Ratio 11.9 RATIO (10-20); Calcium,Total 7.7 mg/dL (8.5-10.1); Chloride 112 mmol/L (98-107); Creatinine, Serum 0.67 mg/dL (0.55-1.02); EST Glomerular Filtration Rate 90 mL/min (>60); Est Glom Filt Rate - Afr Amer 109 mL/min (>60); Estimated Creatinine Clearance 50.14 ml/min; Glucose 130 mg/dL (74-106); Sodium Level 142 mmol/L (136-145)
[2021-02-14] MEDS: Gabapentin 600 MG Tablet PO ×2 (07:37→20:41)
[2021-02-14] MEDS: Aspirin E.C. 81 MG Tablet PO (07:37)
[2021-02-14 08:06] VITALS: O2SAT 95
[2021-02-14] MEDS: Potassium Chloride Oral Tablet 20 MEQ 60 MEQ PO (09:03)
[2021-02-14 10:00] VITALS: O2SAT 95
[2021-02-14 10:22] VITALS: O2SAT 96
--- NOTE | 2021-02-14 12:16 | PCM.PN.RX ---
Progress Note - Pharmacy Subjective: TCU Admission Objective: Allergies doxycycline Allergy (Mild, Verified 02/14/21 07:59) Vomiting oxycodone [From Percocet] Allergy (Mild, Verified 02/14/21 07:59) Confusion acetaminophen [From Darvocet-N] Allergy (Verified 02/14/21 07:59) Other lamotrigine [From Lamictal] Allergy (Verified 02/14/21 07:59) Lip Swelling latex Allergy (Verified 02/14/21 07:59) Rash moxifloxacin HCl [From Avelox] Allergy (Verified 02/14/21 07:59) Other propoxyphene napsylate [From Darvocet-N] Allergy (Verified 02/14/21 07:59) Other zolpidem tartrate [From Ambien] Adverse Reaction (Verified 02/14/21 07:59) Other Current Medications Generic Name Dose Route Start Last Admin Trade Name Freq PRN Reason Stop Dose Admin Aspirin 81 mg 02/14/21 08:00 02/14/21 07:37 Aspirin E.C. 81 Mg Tablet PO 81 mg BREAKFAST STACY Administration Cefdinir 300 mg 02/13/21 18:00 02/14/21 04:55 Cefdinir 300 Mg Capsule PO 02/18/21 18:01 300 mg BID STACY Administration Gabapentin 600 mg 02/14/21 22:00 Gabapentin 600 Mg Tablet PO 02/21/21 22:01 QHS STACY Gabapentin 300 mg 02/22/21 22:00 Gabapentin 300 Mg Capsule PO 03/01/21 22:01 QHS STACY Gabapentin 100 mg 03/02/21 22:00 Gabapentin 100 Mg Capsule PO 03/09/21 22:01 QHS STACY Lacosamide 100 mg 02/14/21 06:00 02/14/21 04:56 Lacosamide 100 Mg Tablet PO 100 mg BID STACY Administration Sertraline HCl 50 mg 02/14/21 22:00 Sertraline 50 Mg Tablet PO 02/21/21 22:01 QHS STACY Sertraline HCl 25 mg 02/22/21 22:00 Sertraline 50 Mg Tablet PO 03/01/21 22:01 QHS STACY Sodium Chloride 10 - 40 ml 02/13/21 17:17 02/14/21 04:55 0.9% Saline Lock 10 Ml Syringe IV 10 ml UD PRN Administration SALINE FLUSH Tuberculin PPD 0.1 ml 02/21/21 10:00 Tuberculin,Purif.Prot.Deriv. 50 Tu/Ml Vial ID 02/21/21 10:01 X1 ONE Problem List (Last Reviewed 02/14/21 @ 07:52 by Dottie Horowitz) Edema (Acute) Depression (Acute) Gastroesophageal reflux disease (Acute) Vitamin D deficiency (Acute) Hyperlipidemia (Acute) Osteoporosis (Acute) Overactive bladder (Acute) Restless leg syndrome (Acute) Iron deficiency anemia (Acute) Dehydration (Acute) Acute kidney injury (Acute) Urinary tract infection (Acute) Encephalopathy (Acute) Debility (Acute) Vital Signs Temp Pulse Resp BP Pulse Ox 97.9 F 78 18 169/88 H 95 02/14/21 02:00 02/14/21 02:00 02/14/21 02:00 02/14/21 02:00 02/14/21 10:00 Oxygen Delivery Method Room Air Weight: 69.8 kg Body Mass Index (BMI) 21.5 Sodium 142 mmol/L (136-145) 02/14/21 05:38 Potassium 3.0 mmol/L (3.5-5.1) L 02/14/21 05:38 Chloride 112 mmol/L (98-107) H 02/14/21 05:38 Carbon Dioxide 23.0 mmol/L (21.0-32.0) 02/14/21 05:38 Anion Gap 7 (5-15) 02/14/21 05:38 BUN 8 mg/dL (7-18) 02/14/21 05:38 Creatinine 0.67 mg/dL (0.55-1.02) 02/14/21 05:38 Est GFR (MDRD) Af Amer 109 mL/min (>60) 02/14/21 05:38 Est GFR (MDRD) Non-Af 90 mL/min (>60) 02/14/21 05:38 BUN/Creatinine Ratio 11.9 RATIO (10-20) 02/14/21 05:38 Glucose 130 mg/dL (74-106) H 02/14/21 05:38 Assessment/Plan: 1. Stroke: aspirin 81mg PO daily. Please continue to monitor for hemoglobin (last 11.4g/dL) and S/S of bleeidng. 2. UTI: cefdinir 300mg PO BID thru 02/18/21. Please continue to monitor for S/S of infection, renal function, discolored stool and urine culture. 3. Partial seizures: lacosamide 100mg PO BID. Please continue to monitor for S/S of seizure, dizziness, and confusion. 4. Neuropathic pain: gabapentin taper - 600mg PO QHS thru 02/21, then 300mg PO QHS 02/22 - 03/01, then 100mg PO QHS 03/02 - 03/09. Please continue to monitor for confusion. Psychotropic Medications: 1. Depression: sertraline taper - 50mg PO QHS thru 02/21, then 25mg PO QHS 02/22 - 03/01. Please continue to monitor for confusion. Unnecessary Medications: None Bowel Regimen: None Date of Note:: 02/14/21
[2021-02-14] MEDS: Tuberculin,Purif.prot.deriv. 50 TU/ML Vial 0.1 ML ID (12:28)
[2021-02-14 15:06] VITALS: BP 136/70; PULSE 77; RESP 16; TEMP 36.4; O2SAT 95
[2021-02-14] MEDS: Sertraline 50 MG Tablet PO (20:41)
[2021-02-15 05:54] VITALS: BP 134/79; PULSE 68; RESP 18; TEMP 36.7; O2SAT 96
[2021-02-15] MEDS: Lacosamide 100 MG Tablet PO ×2 (05:56→17:48)
[2021-02-15] MEDS: Cefdinir 300 MG Capsule PO ×2 (05:57→17:48)
[2021-02-15 06:37] LABS: Anion Gap 6 (5-15); BUN 10 mg/dL (7-18); BUN/Creat Ratio 15.5 RATIO (10-20); Calcium,Total 7.8 mg/dL (8.5-10.1); Chloride 110 mmol/L (98-107); Creatinine, Serum 0.65 mg/dL (0.55-1.02); EST Glomerular Filtration Rate 94 mL/min (>60); Est Glom Filt Rate - Afr Amer 114 mL/min (>60); Estimated Creatinine Clearance 51.09 ml/min; Glucose 81 mg/dL (74-106); Potassium 3.4 mmol/L (3.5-5.1); Sodium Level 140 mmol/L (136-145)
[2021-02-15] MEDS: Potassium Chloride Oral Tablet 20 MEQ 40 MEQ PO (08:42)
[2021-02-15] MEDS: Aspirin E.C. 81 MG Tablet PO (08:42)
--- NOTE | 2021-02-15 12:39 | NURSING ---
Pt going [facility] for family gathering on 02/17/[address] Ramos, will pick pt up at 12:30
[2021-02-15 16:00] VITALS: BP 130/71; PULSE 67; RESP 16; TEMP 36.6; O2SAT 97
--- NOTE | 2021-02-15 16:11 | CASEMGMT ---
Social Work See attached assessment for completed assessment. Unable to complete MOLST form with patient due to patient being oriented to self only. Mati Gage ASPHALT PATCHER, PAM-S
--- NOTE | 2021-02-15 16:26 | CHAPLAIN ---
Type of Pastoral Visit _x__ Initial Visit ___ Follow-up Visit ___ On-call Visit ___ General Patient Visit ___ Spiritual Assessment ___ Family Conference ___ Bereavement ___ Rapid Response ___ Code Blue ___ Other (describe below) Pastoral Care Referral From ___ Patient _x__ Family ___ Nurse ___ Physician ___ Logistics System Engineer ___ Swimming Pool Maintenance ___ Other (describe below) Sacrament/Intervention _x__ Active listening ___ Anointing ___ Taoism ___ Bereavement ___ Communion ___ Lilly exploration ___ ___ Life review _x__ Prayer ___ Reconciliation ___ Sacrament of Sick _x__ Supportive presence ___ Wedding ___ Other (describe below) Pastoral Comments spouse of patient is in the room when I introduce self as hall porter and what the role is of a hall porter; spouse asks questions of pt to get her to talk; pt complies but is very repetitive and very slow in coming up with her formed answers; spouse asks pt is she would like prayer and she did; spouse leaves her and pt continues to talk repetitively about the children as if she starts the conversation over with the same phrases; pt also answers appropriately at times and at the end expresses thankfulness for the visit and offers to shake this hall porter's hand;
[2021-02-15] MEDS: 0.9% Saline Lock 10 ML Syringe IV (18:06)
--- NOTE | 2021-02-15 19:46 | NURSING ---
Pt had appt with Dr. Frances this shift. Dr. Frances ordered to advance diet to minced moist and thin liquid. Spoke with speech therapist Princess and she contacted Dr. Frances regarding diet and updated him on her assessment. Dr. Frances agreed to leave diet puree diet and thin liquids. Will continue to monitor pt.
[2021-02-15] MEDS: Gabapentin 600 MG Tablet PO (21:14)
[2021-02-15] MEDS: Sertraline 50 MG Tablet PO (21:14)
[2021-02-16 05:00] VITALS: BP 136/69; PULSE 66; RESP 14; TEMP 36.4; O2SAT 97
[2021-02-16 06:12] LABS: Anion Gap 5 (5-15); BUN 9 mg/dL (7-18); BUN/Creat Ratio 14.7 RATIO (10-20); Calcium,Total 8.2 mg/dL (8.5-10.1); Chloride 111 mmol/L (98-107); Creatinine, Serum 0.61 mg/dL (0.55-1.02); EST Glomerular Filtration Rate 101 mL/min (>60); Est Glom Filt Rate - Afr Amer 122 mL/min (>60); Estimated Creatinine Clearance 51.09 ml/min; Glucose 85 mg/dL (74-106); Potassium 3.9 mmol/L (3.5-5.1); Sodium Level 141 mmol/L (136-145)
[2021-02-16] MEDS: Lacosamide 100 MG Tablet PO ×2 (06:18→17:14)
[2021-02-16] MEDS: Aspirin E.C. 81 MG Tablet PO (09:05)
--- NOTE | 2021-02-16 10:39 | CASEMGMT ---
Social Work Brief Interview for Mental Status(6) and PHQ-9 completed(0) on this date. KELTON West
[2021-02-16 10:49] VITALS: PULSE 71; RESP 16; O2SAT 98
--- NOTE | 2021-02-16 15:23 | ST ---
RN notified AUTHOR'S AGENT that pt's had questions about pt's current diet and is reporting pt is not eating. Spoke with SENIOR GEOTECHNICAL ENGINEER who reports pt ate all of breakfast this morning and tasted some of everything at lunch. Entered pt's room where education was completed with pt/spouse regarding conversation AUTHOR'S AGENT had with Dr. Frances ENT yesterday 02/[address] Frances gave verbal order to continue with puree textures/thin liquids per most recent AUTHOR'S AGENT dysphagia evaluation in order to reduce risk of aspiration. Discussed plan for meal trial analysis on 02/17/21 consisting of minced and moist textures as pt tolerated karis cracker snack trial this date during skilled ST session. Pt and state they comprehend and voice no further questions at this time.
[2021-02-16 16:00] VITALS: BP 141/73; PULSE 67; RESP 16; TEMP 36.5; O2SAT 90
[2021-02-16] MEDS: Gabapentin 600 MG Tablet PO (22:47)
[2021-02-16] MEDS: Sertraline 50 MG Tablet PO (22:47)
[2021-02-17 05:00] VITALS: BP 127/77; PULSE 73; RESP 18; TEMP 36.4; O2SAT 93
[2021-02-17] MEDS: Lacosamide 100 MG Tablet PO ×2 (07:19→18:36)
[2021-02-17] MEDS: Aspirin E.C. 81 MG Tablet PO (07:19)
--- NOTE | 2021-02-17 14:12 | NURSING ---
pt left unit with spouse to go to family gathering, approved by Dr. Ramos.
[2021-02-17 15:55] VITALS: BP 126/75; PULSE 68; RESP 18; TEMP 36.3; O2SAT 96
--- NOTE | 2021-02-17 18:38 | NURSING ---
pt returned to unit
[2021-02-17] MEDS: Gabapentin 600 MG Tablet PO (20:38)
[2021-02-17] MEDS: Sertraline 50 MG Tablet PO (20:38)
[2021-02-18] MEDS: Lacosamide 100 MG Tablet PO ×2 (06:11→16:29)
[2021-02-18 06:15] VITALS: BP 126/69; PULSE 72; RESP 16; TEMP 36.3
[2021-02-18] MEDS: Aspirin E.C. 81 MG Tablet PO (07:46)
[2021-02-18 10:07] VITALS: PULSE 81; RESP 16; O2SAT 95
--- NOTE | 2021-02-18 12:49 | NURSING ---
at nurses station with questions regarding his 's incontinence of B&B. He states that Dr Ramos had stopped her medication that helped her stay continent. will place pt on q 2h toileting schedule. agreed. questions answered, very appreciative.
[2021-02-18 14:25] VITALS: BP 131/61; PULSE 82; RESP 14; TEMP 36.8; O2SAT 96
[2021-02-18] MEDS: Sertraline 50 MG Tablet PO (20:46)
[2021-02-18] MEDS: Gabapentin 600 MG Tablet PO (20:46)
[2021-02-19] MEDS: Lacosamide 100 MG Tablet PO ×2 (06:14→17:13)
[2021-02-19 06:16] VITALS: BP 116/53; PULSE 66; RESP 16; TEMP 36.2; O2SAT 95
[2021-02-19] MEDS: Aspirin E.C. 81 MG Tablet PO (09:01)
[2021-02-19 14:22] VITALS: BP 130/80; PULSE 69; RESP 16; TEMP 36.6; O2SAT 93
[2021-02-19] MEDS: Gabapentin 600 MG Tablet PO (20:36)
[2021-02-19] MEDS: Sertraline 50 MG Tablet PO (20:36)
[2021-02-20 05:00] VITALS: BP 122/63; PULSE 69; RESP 16; TEMP 36.8; O2SAT 94
[2021-02-20] MEDS: Lacosamide 100 MG Tablet PO ×2 (06:09→17:30)
[2021-02-20] MEDS: Aspirin E.C. 81 MG Tablet PO (08:39)
[2021-02-20 08:47] VITALS: PULSE 68; O2SAT 95
[2021-02-20 13:49] VITALS: BP 128/71; PULSE 73; RESP 16; TEMP 36.2; O2SAT 93
--- NOTE | 2021-02-20 20:33 | RAD_ITS ---
STUDY: X-RAY - ABDOMEN/PELVIS REASON FOR EXAM: Female, 80 years old. Appetite loss TECHNIQUE: Two AP supine views of the abdomen and pelvis. COMPARISON: None. FINDINGS: Normal visualized lung bases. There is an unremarkable bowel gas pattern. There is no demonstrated free abdominal air. The visualized liver, spleen and kidneys are grossly normal in size and morphology. Normal soft tissue structures. Old compression fractures in the vertebral bodies of L2, L3 and L4. RAD/Abdomen Single View IMPRESSION: No evidence of bowel obstruction. Electronically Signed: Ermelinda Herrera MD at 6:47 EDT Tel , Service support ,
[2021-02-20] MEDS: Mirtazapine 15 MG Tablet 7.5 MG PO (21:23)
[2021-02-20] MEDS: Gabapentin 600 MG Tablet PO (21:23)
[2021-02-20] MEDS: Sertraline 50 MG Tablet PO (21:23)
--- NOTE | 2021-02-20 21:25 | NURSING ---
Bladder scanned prior to straight cathing for d/t incontinence, only scanning 27ml. Pt given glass of water with meds, will rescan in half and hour.
[2021-02-20 22:21] LABS: Bacteria 0 SEEN /hpf (None Seen); Red Blood Cells-Urine 0 SEEN /hpf (0-5)
[2021-02-20 22:23] LABS: Color, Urine Yellow (Yellow); Glucose, Dipstick Normal (Normal); Ketone-Dipstick Negative (Negative); Leukocyte Esterase-Dipstick 100 /ul (Negative); Nitrite-Dipstick Negative (Negative); Occult Blood-Urine 10 /ul (Negative); Protein-Dipstick 15 mg/dl (Negative); Urine Bilirubin Dipstick 1 mg/dL (Negative); Urine Clarity Sl. Cloudy (Clear); Urine Urobilinogen 4 mg/dl (Normal)
[2021-02-20 22:28] LABS: Mucous, Urine 2+ /hpf (<or=2+); Squamous Epithelial Cells - UA 10-25 SEEN /hpf (5-10); White Blood Cells 0-5 SEEN /hpf (0-5)
[2021-02-21 04:41] VITALS: BP 131/74; PULSE 63; RESP 16; TEMP 36.6; O2SAT 91
[2021-02-21] MEDS: Lacosamide 100 MG Tablet PO ×2 (04:52→17:17)
--- NOTE | 2021-02-21 06:38 | NURSING ---
Called radiology to inquire about KUB results, spoke with Matias, he states he will look into it.
[2021-02-21 06:42] LABS: Absolute Lymphocyte Count 1.48 X10^3/uL (0.83-4.51); Absolute Neutrophil Count 4.8 X10^3/uL (2.0-7.7); Basophil# 0.03 X10^3/uL; Basophil% 0.4 % (0-1); Eosinophil# 0.22 X10^3/uL; Eosinophils% 3.1 % (0-5); Hematocrit 36.7 % (37-47); Lymphocyte # 1.48 X10^3/ul (0.83-4.51); Mean Corp Hgb Conc 32.7 g/dL (32-36); Mean Corpuscular Hgb 29.3 pg (27.0-32.0); Mean Corpuscular Volume 89.5 fL (81-99); Mean Platelet Vol. 9.3 fl (6.2-12.0); Monocyte# 0.54 X10^3/uL; Monocyte% 7.6 % (0-10); NRBC Flagged by Analyzer 0 % (0-5); Neutrophil # 4.76 X10^3/uL (2.7-7.7); Neutrophil % 67.5 % (47-70); Platelet Count 254 K/mm3 (150-450); RBC Distribution Width CV 13.1 % (11.6-14.6); RBC Distribution Width SD 43.1 fl (35.1-43.9); White Blood Count 7.1 K/mm3 (4.4-11.0)
[2021-02-21 07:03] LABS: Anion Gap 5 (5-15); BUN 11 mg/dL (7-18); Calcium,Total 8.3 mg/dL (8.5-10.1); Chloride 108 mmol/L (98-107); Creatinine, Serum 0.84 mg/dL (0.55-1.02); EST Glomerular Filtration Rate 69 mL/min (>60); Est Glom Filt Rate - Afr Amer 84 mL/min (>60); Estimated Creatinine Clearance 70.38 ml/min; Glucose 98 mg/dL (74-106); Potassium 3.6 mmol/L (3.5-5.1); Sodium Level 139 mmol/L (136-145)
[2021-02-21] MEDS: Aspirin E.C. 81 MG Tablet PO (08:42)
[2021-02-21] MEDS: Magnesium Citrate 300 ML PO (08:54)
--- NOTE | 2021-02-21 09:01 | NURSING ---
Addendum entered by Karrie Head 02/21/21 10:24: Updated he will be here to go with her. Original Note: Pt's stated that Dr. Caal wanted pt to have an ECHO done. Called Dr. Caal's office to confirm with them. Dr. Caal's office stated that they were awaiting pre-cert for the ECHO and that the will be called once pre-cert is complete. Called [facility] to schedule ECHO for 02/23/21 @ 1400 will update pt's .
--- NOTE | 2021-02-21 10:34 | CASEMGMT ---
Social Work Plan of care meeting held. Patient present as well as patient spouse. No discharge date has been set at this time. Patient to continue with further care and treatment on the Transitional Care Unit. Patient plans to discharge to home with spouse at time of discharge. Will continue to follow. Mati SPENCE, KELTON
[2021-02-21] MEDS: Tuberculin,Purif.prot.deriv. 50 TU/ML Vial 0.1 ML ID (11:24)
[2021-02-21 14:05] VITALS: BP 107/61; PULSE 66; RESP 16; TEMP 36.6; O2SAT 91
[2021-02-21] MEDS: Senna/Docusate Sodium 1 Tablet PO (17:17)
[2021-02-21] MEDS: Sertraline 50 MG Tablet PO (21:47)
[2021-02-21] MEDS: Gabapentin 600 MG Tablet PO (21:48)
[2021-02-22 05:41] VITALS: BP 101/56; PULSE 67; RESP 16; TEMP 36.6; O2SAT 94
[2021-02-22] MEDS: Senna/Docusate Sodium 1 Tablet PO (05:43)
[2021-02-22] MEDS: Lacosamide 100 MG Tablet PO ×2 (05:43→17:56)
[2021-02-22] MEDS: Aspirin E.C. 81 MG Tablet PO (08:19)
[2021-02-22 10:00] VITALS: PULSE 68; RESP 16; O2SAT 97
[2021-02-22 13:51] VITALS: BP 105/63; PULSE 68; RESP 18; TEMP 36.6; O2SAT 95
--- NOTE | 2021-02-22 16:22 | CHAPLAIN ---
Type of Pastoral Visit ___ Initial Visit _x__ Follow-up Visit ___ On-call Visit ___ General Patient Visit ___ Spiritual Assessment ___ Family Conference ___ Bereavement ___ Rapid Response ___ Code Blue ___ Other (describe below) Pastoral Care Referral From _x__ Patient ___ Family ___ Nurse ___ Physician ___ Zinc Plate Cutter ___ Thermal Molder ___ Other (describe below) Sacrament/Intervention _x__ Active listening ___ Anointing ___ Hindu ___ Bereavement ___ Communion ___ Lilly exploration ___ ___ Life review ___ Prayer ___ Reconciliation ___ Sacrament of Sick _x__ Supportive presence ___ Wedding ___ Other (describe below) Pastoral Comments
[2021-02-22] MEDS: Mirtazapine 15 MG Tablet 7.5 MG PO (20:36)
[2021-02-22] MEDS: Gabapentin 300 MG Capsule PO (20:36)
[2021-02-23] MEDS: Lacosamide 100 MG Tablet PO ×2 (05:15→17:35)
[2021-02-23] MEDS: Senna/Docusate Sodium 1 Tablet PO ×2 (05:15→17:35)
[2021-02-23 05:20] VITALS: BP 121/64; PULSE 60; RESP 16; TEMP 36.4; O2SAT 93
[2021-02-23] MEDS: Aspirin E.C. 81 MG Tablet PO (08:02)
[2021-02-23 16:00] VITALS: BP 97/57; PULSE 80; RESP 16; TEMP 36.8; O2SAT 94
[2021-02-23] MEDS: Gabapentin 300 MG Capsule PO (22:51)
[2021-02-23] MEDS: Mirtazapine 15 MG Tablet 7.5 MG PO (22:51)
[2021-02-24 05:00] VITALS: BP 111/61; PULSE 60; RESP 16; TEMP 36.3; O2SAT 90
[2021-02-24] MEDS: Senna/Docusate Sodium 1 Tablet PO ×2 (05:33→17:04)
[2021-02-24] MEDS: Lacosamide 100 MG Tablet PO ×2 (05:33→17:03)
[2021-02-24] MEDS: Aspirin E.C. 81 MG Tablet PO (09:10)
--- NOTE | 2021-02-24 14:45 | NURSING ---
Caregiver requesting that stool softeners be changed to as needed or every other day. pt has had so many incont episodes since being here on them. feels won't be able to deal with this. dr dos santos udpated, new order to change to every other day.
[2021-02-24 15:10] VITALS: BP 109/67; PULSE 74; RESP 16; TEMP 36.1; O2SAT 90
[2021-02-24 15:25] VITALS: PULSE 72; RESP 16; O2SAT 98
--- NOTE | 2021-02-24 15:43 | NURSING ---
pt assisted to BR, incont LG amt of urine, attends changed. pt had no idea she was wet. Skin care provided. assisted back to recliner chair x1 assist with walker. pretty steady gait, needed reminders to keep ambulating toward recliner chair. alarm in place. call light in reach, but pt never uses. on toileting schedule.
--- NOTE | 2021-02-24 17:17 | NURSING ---
pt here and asking about when pt can be discharged and if he can request a sooner discharge date. This nurse began questioning if he has concerns regarding her care here, nav stated that her bladder and bowel meds were stopped that were ordered by Dr Bhandari previously and pt was doing well on them. pt now having incont episodes of urine and bowel. Message left for [facility] advertising agency manager regarding concerns.
[2021-02-24] MEDS: Gabapentin 300 MG Capsule PO (21:22)
[2021-02-24] MEDS: Mirtazapine 15 MG Tablet 7.5 MG PO (21:22)
[2021-02-24] MEDS: Menthol/Lanolin/Calamine/Znox 113 GM Tube 1 APPLIC TOPICAL (21:22)
[2021-02-25 04:33] VITALS: BP 111/66; PULSE 62; RESP 16; TEMP 36.1; O2SAT 91
[2021-02-25] MEDS: Menthol/Lanolin/Calamine/Znox 113 GM Tube 1 APPLIC TOPICAL ×2 (04:39→21:05)
[2021-02-25] MEDS: Lacosamide 100 MG Tablet PO ×2 (04:39→17:23)
[2021-02-25] MEDS: Aspirin E.C. 81 MG Tablet PO (07:22)
--- NOTE | 2021-02-25 09:44 | NURSING ---
pt toileted, incontinent of lg amt of urine. pt assisted to toilet, was able to have LG soft BM. Dr Ramos ordered abdomen xray, pt assisted to WC after pericare provided and clean attends on. Down to xray at this time.
--- NOTE | 2021-02-25 09:45 | RAD_ITS ---
STUDY: X-RAY - ABDOMEN/PELVIS REASON FOR EXAM: Female, 80 years old. Appetite loss. TECHNIQUE: Single AP view of the abdomen / pelvis. COMPARISON: 02/20/2021 FINDINGS: There is an unremarkable bowel gas pattern. The visualized liver, spleen and kidneys are grossly normal in size and morphology. Normal soft tissue structures. Status post vertebroplasty throughout the lumbar spine. RAD/Abdomen Single View IMPRESSION: Normal x-ray examination of the abdomen and pelvis. Electronically Signed: Ezio East MD at 10:09 EDT Tel , Service support ,
[2021-02-25 10:22] VITALS: PULSE 70; O2SAT 92
--- NOTE | 2021-02-25 11:15 | NURSING ---
Addendum entered by Isabel Byers 02/25/21 17:28: PT RETURNED FROM [facility] WITH . PLEASANT AND COOPERATIVE. PT & APPRECIATIVE OF CARE. Original Note: here to take pt on personal [facility].
[2021-02-25] MEDS: Mirtazapine 15 MG Tablet 7.5 MG PO (21:05)
[2021-02-25] MEDS: Gabapentin 300 MG Capsule PO (21:06)
--- NOTE | 2021-02-25 21:30 | NURSING ---
Updated Dr. Ramos of 's concerns of increased bowel and bladder incontinence. No new orders at this time.
[2021-02-26] MEDS: Lacosamide 100 MG Tablet PO ×2 (05:19→18:32)
[2021-02-26] MEDS: Menthol/Lanolin/Calamine/Znox 113 GM Tube 1 APPLIC TOPICAL ×2 (05:20→20:04)
[2021-02-26 06:39] VITALS: BP 117/73; PULSE 60; RESP 16; TEMP 36.4; O2SAT 97
[2021-02-26] MEDS: Aspirin E.C. 81 MG Tablet PO (07:46)
--- NOTE | 2021-02-26 09:04 | MDS.RN ---
Information for hte mds was obtained from review of the clinical record, interview of resident, staff, and direct observation of resident's care.
[2021-02-26 14:46] VITALS: BP 100/58; PULSE 62; RESP 14; TEMP 36.9; O2SAT 99
[2021-02-26 19:50] VITALS: PULSE 68; RESP 18; O2SAT 96
[2021-02-26] MEDS: Mirtazapine 15 MG Tablet 7.5 MG PO (20:04)
[2021-02-26] MEDS: Gabapentin 300 MG Capsule PO (20:04)
[2021-02-27 05:00] VITALS: BP 102/53; PULSE 65; RESP 18; TEMP 36.5; O2SAT 90
[2021-02-27] MEDS: Aspirin E.C. 81 MG Tablet PO (05:55)
[2021-02-27] MEDS: Lacosamide 100 MG Tablet PO ×2 (05:55→17:25)
[2021-02-27] MEDS: Menthol/Lanolin/Calamine/Znox 113 GM Tube 1 APPLIC TOPICAL ×2 (05:55→21:41)
[2021-02-27 13:51] VITALS: BP 100/56; PULSE 78; RESP 16; TEMP 36.2; O2SAT 96
[2021-02-27] MEDS: Mirtazapine 15 MG Tablet 7.5 MG PO (21:40)
[2021-02-27] MEDS: Gabapentin 300 MG Capsule PO (21:40)
[2021-02-28 05:37] VITALS: BP 107/54; PULSE 64; RESP 15; TEMP 36.6; O2SAT 92
[2021-02-28 05:40] LABS: Absolute Lymphocyte Count 2.17 X10^3/uL (0.83-4.51); Absolute Neutrophil Count 2.5 X10^3/uL (2.0-7.7); Basophil# 0.05 X10^3/uL; Basophil% 0.9 % (0-1); Eosinophil# 0.14 X10^3/uL; Eosinophils% 2.6 % (0-5); Hematocrit 37.8 % (37-47); Lymphocyte # 2.17 X10^3/ul (0.83-4.51); Lymphocyte % 39.8 % (19-41); Mean Corp Hgb Conc 31.7 g/dL (32-36); Mean Corpuscular Hgb 28.9 pg (27.0-32.0); Mean Corpuscular Volume 91.1 fL (81-99); Mean Platelet Vol. 10.2 fl (6.2-12.0); Monocyte# 0.58 X10^3/uL; Monocyte% 10.6 % (0-10); NRBC Flagged by Analyzer 0 % (0-5); Neutrophil # 2.49 X10^3/uL (2.7-7.7); Neutrophil % 45.7 % (47-70); Platelet Count 229 K/mm3 (150-450); RBC Distribution Width CV 13.2 % (11.6-14.6); RBC Distribution Width SD 44.9 fl (35.1-43.9); Red Blood Count 4.15 M/mm3 (4.2-5.4); White Blood Count 5.5 K/mm3 (4.4-11.0)
[2021-02-28 05:55] LABS: Anion Gap 5 (5-15); BUN 19 mg/dL (7-18); BUN/Creat Ratio 21.2 RATIO (10-20); Calcium,Total 8.2 mg/dL (8.5-10.1); Chloride 108 mmol/L (98-107); EST Glomerular Filtration Rate 65 mL/min (>60); Est Glom Filt Rate - Afr Amer 78 mL/min (>60); Estimated Creatinine Clearance 52.31 ml/min; Glucose 94 mg/dL (74-106); Sodium Level 139 mmol/L (136-145)
[2021-02-28] MEDS: Lacosamide 100 MG Tablet PO ×2 (06:29→17:41)
[2021-02-28] MEDS: Menthol/Lanolin/Calamine/Znox 113 GM Tube 1 APPLIC TOPICAL ×2 (06:30→20:39)
[2021-02-28] MEDS: Aspirin E.C. 81 MG Tablet PO (07:44)
[2021-02-28 14:27] VITALS: BP 92/52; PULSE 68; RESP 14; TEMP 36.2; O2SAT 98
[2021-02-28] MEDS: Gabapentin 300 MG Capsule PO (20:39)
[2021-02-28] MEDS: Mirtazapine 15 MG Tablet 7.5 MG PO (20:39)
[2021-03-01 05:00] VITALS: BP 105/65; PULSE 64; RESP 18; O2SAT 90
[2021-03-01] MEDS: Aspirin E.C. 81 MG Tablet PO (05:35)
[2021-03-01] MEDS: Lacosamide 100 MG Tablet PO ×2 (05:35→17:38)
[2021-03-01] MEDS: Menthol/Lanolin/Calamine/Znox 113 GM Tube 1 APPLIC TOPICAL ×2 (05:35→20:49)
--- NOTE | 2021-03-01 13:06 | CASEMGMT ---
Social Work SW met with pt and spouse to discuss discharge plans. SW explained medicare coverage and discussed discharge options. Spouse states he will be calling [facility] to check on home health aids schedule and date they are able to restart services (pt previously had SENIOR NURSE MANAGER 6x week for 6 hours each day). SW discussed home health with pt and spouse. Mr. Alcaraz states pt previously received out patient PT at [facility] and he would like to resume this. ST is also recommending services and he is agreeable to this. Mr. Alcaraz will call SW and inform when SENIOR NURSE MANAGER are ready to resume. KAMALA Murillo
[2021-03-01 14:45] VITALS: BP 100/58; PULSE 79; RESP 18; TEMP 36.6; O2SAT 92
--- NOTE | 2021-03-01 15:37 | CASEMGMT ---
Social Work Pt called requesting discharge on Friday03/04/21. He states that home health aid will resume on Friday. Mr. Rinaldi would like outpatient PT at [facility] and out patient Speech Therapy at [facility] ([facility] does not have ST and he wants to remain with [facility] physical therapy). Orders for both requested from physician. Team updated on d/c plan. Discharge Date: 03/04/21 Discharge Disposition: Home with spouse, out patient PT and [facility]
--- NOTE | 2021-03-01 19:51 | PCM.DC.SUM ---
Providers Date of Admission: 02/13/21 Primary Care Physician: Dr. Edi Ramos Reason For Visit: VITALIY & AMS Diagnosis Discharge Diagnosis (1) Debility: Status: Acute Code(s): R53.81 - Other malaise (2) Encephalopathy: Status: Acute Code(s): G93.40 - Encephalopathy, unspecified (3) Urinary tract infection: Status: Acute Code(s): N39.0 - Urinary tract infection, site not specified (4) Acute kidney injury: Status: Acute Code(s): N17.9 - Acute kidney failure, unspecified (5) Dehydration: Status: Acute Code(s): E86.0 - Dehydration (6) Iron deficiency anemia: Status: Acute Code(s): D50.9 - Iron deficiency anemia, unspecified (7) Restless leg syndrome: Status: Acute Code(s): G25.81 - Restless legs syndrome (8) Overactive bladder: Status: Acute Code(s): N32.81 - Overactive bladder (9) Osteoporosis: Status: Acute Code(s): M81.0 - Age-related osteoporosis without current pathological fracture (10) Hyperlipidemia: Status: Acute Code(s): E78.5 - Hyperlipidemia, unspecified (11) Vitamin D deficiency: Status: Acute Code(s): E55.9 - Vitamin D deficiency, unspecified (12) Gastroesophageal reflux disease: Status: Acute Code(s): K21.9 - Gastro-esophageal reflux disease without esophagitis (13) Depression: Status: Acute Code(s): F32.9 - Major depressive disorder, single episode, unspecified (14) Edema: Status: Acute Code(s): R60.9 - Edema, unspecified Medications at Discharge Home Medications lacosamide 100 mg tablet 100 mg PO BID 06/28/20 mirabegron 50 mg tablet,extended release 24 hr 100 mg PO QHS tablet 11/06/20 tolterodine 4 mg capsule,extended release 24 hr 4 mg PO DAILY cap 11/06/20 aspirin 81 mg PO DAILY 02/13/21 gabapentin 100 mg PO QHS 7 Days #7 cap 03/01/21 Hospital Course Operations None Procedures None Summary of Care Provided Minutes Spent on Discharge: 35 Hospital Course: 80 year old female with below past medical history hospitalized for encephalopathy secondary to urinary tract infection, stroke ruled out, complicated by acute kidney injury, dehydration, admitted to TCU with debility, here for rehabilitation, strengthening, prior to discharge home with . Discharge home with 03/04/2021, Outpatient PT/ST. Physical Exam Const alert and oriented x3 General Appearance: cooperative HEENT normocephalic Eyes PERRL and EOMs intact bilaterally Neck supple, no JVD and no carotid bruits Resp normal respiratory effort, normal air movement and clear to auscultation bilaterally Cardio regular rate and regular rhythm GI normal to inspection, nondistended, normoactive bowel sounds, non-tender and non-distended Extremity normal capillary refill General Extremity: Negative for edema Skin no rashes or lesions noted General Skin Exam: no breakdown Psych affect normal Appearance: appropriate Weight / BMI Weight Weight: 64.319 kg Body Mass Index (BMI) 21.5 ABG / Lab / Microbiology Data Result Diagrams: 02/28/21 05:17 02/28/21 05:17 Microbiology: Microbiology 02/20/21 22:15 Urine, Catheterized Urine Culture - Final Staphylococcus simulans Enterococcus faecalis D/C Instructions Discharge Diet: No restrictions Discharge Activity: Return to Normal Activity, May Shower and Use Walker May resume sexual activity in: No Restrictions Weight Bearing Status: Weight bearing as tolerated Call your doctor if you observe: Fever of 101 or Higher, Coldness, Increased Pain, Inability to urinate, Inability to have a bowel movement, Shortness of breath, Dizziness, Fainting spells, Swelling in the ankles, Chest pain, Increased palpitations (irregular heartbeat) and Uncontrolled pain Additional Instructions: Discharge home with 03/04/2021, Outpatient PT/ST. Please Follow Up With: Malachi Caal MD When: As scheduled. Meaningful Use Info Meaningful Use Diagnoses (Choose all that apply): None applicable Discharge Plan Admission Admit Date/Time: 02/13/21 16:44 Primary Reason for Your Visit: Debility Attending Provider: Arun Ramos Chi Primary Care Provider: Bryant Melendrez Instructions Additional Instructions / Restrictions: Out Patient Physical Therapy at [facility], Out Patient Speech Therapy at [facility]. Discharge Orders/Prescriptions Prescriptions: New gabapentin 100 mg Capsule 100 mg PO QHS 7 Days Qty: 7 RF: 0 Continued Vimpat 100 mg tablet 100 mg PO BID RF: 0 Myrbetriq 50 mg tablet extended release 24 hr 100 mg PO QHS RF: 0 tolterodine [Detrol LA] 4 mg capsule,extended release 24hr 4 mg PO DAILY RF: 0 aspirin 81 mg tablet,delayed release (DR/EC) 81 mg PO DAILY RF: 0 Discontinued Vitron-C 65 mg iron- 125 mg tablet,delayed release (DR/EC) 1 tab PO QODAY RF: 0 spironolactone [Aldactone] 25 mg tablet 25 mg PO QHS RF: 0 pramipexole [Mirapex] 0.25 mg tablet 0.5 mg PO QHS RF: 0 cholecalciferol (vitamin D3) 50 mcg (2,000 unit) capsule 50,000 unit PO QMONTH RF: 0 nitroglycerin 0.4 mg tablet, sublingual 0.4 mg SUBLINGUAL ONCE PRN (Reason: CP) Qty: 90 RF: 1 cholecalciferol (vitamin D3) [Vitamin D3] 50 mcg (2,000 unit) Capsule 50 mcg PO DAILY RF: 0 Zyrtec 10 mg Capsule 10 mg PO DAILY RF: 0 pravastatin 40 mg tablet 40 mg PO DAILY RF: 0 sertraline [Zoloft] 100 mg tablet 100 mg PO QHS RF: 0 hyoscyamine sulfate 0.125 mg tablet 0.125 mg PO BID RF: 0 esomeprazole magnesium [Nexium] 40 mg capsule,delayed release(DR/EC) 40 mg PO DAILY RF: 0 gabapentin 300 mg capsule 600 mg PO BID RF: 0 montelukast [Singulair] 10 mg tablet 10 mg PO DAILY RF: 0 furosemide [Lasix] 20 mg tablet 20 mg PO DAILY RF: 0 cefdinir 300 mg capsule 300 mg PO BID RF: 0 ezetimibe [Zetia] 10 mg tablet 10 mg PO DAILY RF: 0 Prolia 60 mg/mL syringe 60 mg SC [id number] RF: 0 Referrals / Follow Up: Arun Ramos Chi, MD [COURTESY STAFF PHYSICIAN] - Within 1 Week Disposition Disposition (needs filled in before D/C Order can be placed): Home, Self Care
[2021-03-01] MEDS: Mirabegron 50 MG TAB.ER.24H PO (20:49)
[2021-03-01] MEDS: Gabapentin 300 MG Capsule PO (20:49)
[2021-03-01] MEDS: Mirtazapine 15 MG Tablet 7.5 MG PO (20:50)
[2021-03-02 06:23] VITALS: BP 104/60; PULSE 66; RESP 16; TEMP 36.4; O2SAT 91
[2021-03-02] MEDS: Tolterodine Tartrate 4 MG CAP.SA PO (06:25)
[2021-03-02] MEDS: Menthol/Lanolin/Calamine/Znox 113 GM Tube 1 APPLIC TOPICAL ×2 (06:25→20:07)
[2021-03-02] MEDS: Lacosamide 100 MG Tablet PO ×2 (06:27→18:13)
[2021-03-02] MEDS: Aspirin E.C. 81 MG Tablet PO (07:36)
[2021-03-02 08:00] VITALS: PULSE 68; RESP 18; O2SAT 93
[2021-03-02] MEDS: Senna/Docusate Sodium 1 Tablet PO (08:36)
--- NOTE | 2021-03-02 08:38 | NURSING ---
prn Senokot given due to no bm in 4 days. rn aware
--- NOTE | 2021-03-02 10:03 | NURSING ---
FINE CRACKLES TO POST LOBES. RN AWARE.
--- NOTE | 2021-03-02 10:43 | CASEMGMT ---
Social Work Brief interview for mental status (BIMS) and resident mood assessment (PHQ-9) completed on this day. Mati SPENCE, SARANS
--- NOTE | 2021-03-02 11:42 | CASEMGMT ---
Social Work Order for outpatient speech therapy faxed to [facility]. Order for outpatient physical therapy faxed to [facility] outpatient services. Proposed discharge date: 03/04/2021. KELTON Cervantes
--- NOTE | 2021-03-02 11:59 | NURSING ---
Notified Dr. Ramos of patient spouse requesting Tylenol for GROSS patient c/o. Received order for for Tylenol 1000mg PRN q6hr. for pain 1-10
[2021-03-02] MEDS: Acetaminophen 500 MG Tablet 1000 MG PO (13:12)
[2021-03-02 13:23] VITALS: BP 92/54; PULSE 86; RESP 16; TEMP 36.7; O2SAT 93
[2021-03-02] MEDS: Mirabegron 50 MG TAB.ER.24H PO (20:06)
[2021-03-02] MEDS: Gabapentin 100 MG Capsule PO (20:06)
[2021-03-02] MEDS: Mirtazapine 15 MG Tablet 7.5 MG PO (20:07)
[2021-03-03] MEDS: Lacosamide 100 MG Tablet PO ×2 (05:31→18:25)
[2021-03-03] MEDS: Tolterodine Tartrate 4 MG CAP.SA PO (05:31)
[2021-03-03] MEDS: Menthol/Lanolin/Calamine/Znox 113 GM Tube 1 APPLIC TOPICAL ×2 (05:31→21:09)
[2021-03-03 06:27] VITALS: BP 120/67; PULSE 71; RESP 93; TEMP 36.7
[2021-03-03] MEDS: Aspirin E.C. 81 MG Tablet PO (08:15)
[2021-03-03 14:47] VITALS: BP 109/66; PULSE 76; RESP 18; TEMP 36.7; O2SAT 91
[2021-03-03] MEDS: Gabapentin 100 MG Capsule PO (21:06)
[2021-03-03] MEDS: Mirabegron 50 MG TAB.ER.24H PO (21:06)
[2021-03-03] MEDS: Mirtazapine 15 MG Tablet 7.5 MG PO (21:06)
[2021-03-04 05:00] VITALS: BP 111/59; PULSE 73; RESP 16; TEMP 36.8; O2SAT 93
[2021-03-04] MEDS: Tolterodine Tartrate 4 MG CAP.SA PO (05:16)
[2021-03-04] MEDS: Lacosamide 100 MG Tablet PO (05:16)
[2021-03-04] MEDS: Menthol/Lanolin/Calamine/Znox 113 GM Tube 1 APPLIC TOPICAL (05:17)
[2021-03-04 05:18] VITALS: PULSE 73; RESP 16; O2SAT 93
[2021-03-04] MEDS: Aspirin E.C. 81 MG Tablet PO (07:57)
[2021-03-04 11:29] VITALS: BP 97/54; PULSE 78; RESP 16; TEMP 36.7; O2SAT 93
== END 2021-03-04 11:40 | disposition home or self-care (01) | DRG 690 ==
PROVIDERS: Admitting Provider Family Medicine Geriatric Medicine; PCP Internal Medicine; Visit Provider Family Medicine Geriatric Medicine
DX: N39.0 Urinary tract infection, site not specified (principal); G93.40 Encephalopathy, unspecified; E78.5 Hyperlipidemia, unspecified; E55.9 Vitamin D deficiency, unspecified; D50.9 Iron deficiency anemia, unspecified; N32.81 Overactive bladder; Z23 Encounter for immunization; K21.9 Gastro-esophageal reflux disease without esophagitis; G25.81 Restless legs syndrome; F32.9 Major depressive disorder, single episode, unspecified; I25.10 Atherosclerotic heart disease of native coronary artery without angina pectoris; M19.90 Unspecified osteoarthritis, unspecified site; J45.909 Unspecified asthma, uncomplicated; F03.90 Unspecified dementia, unspecified severity, without behavioral disturbance, psychotic disturbance, mood disturbance, and anxiety; M81.0 Age-related osteoporosis without current pathological fracture; I25.2 Old myocardial infarction; Z86.718 Personal history of other venous thrombosis and embolism; Z79.899 Other long term (current) drug therapy; Z79.82 Long term (current) use of aspirin
CPT/HCPCS: 36415; 74018; 80048; 81001; 85025; 87077; 87086; 87088; 87186; 87635; 92507; 92523; 92526; 92610; 93306; 97110; 97116; 97162; 97166; 97530; 97535; 97802; G0009; U0005; 90670; A4216; U0003

== ENCOUNTER → 2021-02-23 13:59 | Outpatient (CLI) | payer MEDICARE, OTHER, SELFPAY ==
[2021-02-14 07:51] VITALS: BMI 30.5
--- NOTE | 2021-02-23 14:02 | ECHOD_ITS ---
Reason For Study: PHTN Procedure This was a 2D Doppler, Color Flow transthoracic echocardiogram. The study was technically difficult. Exam performed in department. Left Ventricle Normal LV size. Left ventricular systolic function is normal. The estimated ejection fraction is 65 %. Stage 1 diastolic dysfunction. No regional wall motion abnormalities noted. Right Ventricle Normal RV size. Normal systolic function. Atria Normal left atrium. Normal right atrium. Mitral Valve Normal mitral valve. Tricuspid Valve Normal tricuspid valve. Mild (1+) tricuspid valve insufficiency. Pulmonary artery systolic pressure is 38 mmHg. Aortic Valve Trisinus/trileaflet aortic valve. Pulmonic Valve Normal pulmonic valve. Great Vessels Calcified aortic root. The pulmonary artery is normal size. Normal inferior vena cava. Pericardium/Pleural No pericardial effusion. MMode/2D Measurements & Calculations LVIDd: 3.7 cm IVSd: 1.3 cm Ao root diam: 2.9 cm LVIDs: 2.1 cm LVPWd: 0.93 cm RVDd: 3.6 cm FS: 42.9 % LAV(MOD-bp): 26.6 ml LA A4 area: 17.8 cm2 LA dimension(2D): 0.67 cm LAV(MOD-bp) Indexed: 16.3 ml/m2 LAV(MOD-sp2): 13.4 ml LAV(MOD-sp4): 44.1 ml RA A4 area: 9.3 cm2 Doppler Measurements & Calculations MV E max ludwin: 67.6 cm/sec Lat Peak E' Ludwin: 8.4 cm/sec Med Peak E' Ludwin: 2.8 cm/sec MV A max ludwin: 75.5 cm/sec E/E' lat: 8.1 E/E' med: 24.3 MV E/A: 0.89 Ao V2 max: 121.5 cm/sec LV V1 max: 112.5 cm/sec PA V2 max: 85.9 cm/sec Ao max P.9 mmHg LV V1 max P.1 mmHg Ao V2 mean: 86.1 cm/sec Ao mean P.2 mmHg Ao V2 VTI: 21.2 cm TR max ludwin: 294.8 cm/sec TR max P.8 mmHg ECHO/Echo Complete Interpretation Summary Normal LV size. Left ventricular systolic function is normal. The estimated ejection fraction is 65 %. Stage 1 diastolic dysfunction. Pulmonary artery systolic pressure is 38 mmHg. Ordering Physician: Malachi Caal Referring Physician: Malachi Caal Performed By: Georgia Franco, DANACS, RVT
== END ==
PROVIDERS: PCP Internal Medicine; Referring Provider Internal Medicine Critical Care Medicine; Visit Provider Internal Medicine Critical Care Medicine
DX: G47.33 Obstructive sleep apnea (adult) (pediatric) (principal); J47.9 Bronchiectasis, uncomplicated; R94.2 Abnormal results of pulmonary function studies
CPT/HCPCS: 93306

== ENCOUNTER → 2021-03-05 16:03 | Outpatient (CLI) | payer MEDICARE, OTHER, SELFPAY ==
[2021-02-14 07:51] VITALS: BMI 30.5
--- NOTE | 2021-03-05 16:40 | RAD_ITS ---
STUDY: X-RAY CHEST REASON FOR EXAM: Female, 80 years old. SIMPLE CHRONIC BRONCHITIS TECHNIQUE: PA and lateral views of the chest. COMPARISON: 02/10/2021, 10/16/2020 FINDINGS: Surgical clips project over the left axilla. There are interstitial fibrotic changes of the lungs. There is no demonstrated pleural abnormality. Normal size heart. Normal mediastinum and kamryn. Normal visualized pulmonary arteries. Normal visualized aortic arch and descending thoracic aorta. There is demineralization of the osseous structures. Old right rib fractures. Prior vertebral augmentation of lumbar levels. Thoracic spine compression fractures are similar since prior chest CT. There is no demonstrated abnormality of the visualized soft tissue structures of the upper abdomen. RAD/Chest PA and Lateral IMPRESSION: Stable, nonacute x-ray examination of the chest. Electronically Signed: Eulalio Koch MD (Brooks) at 14:03 EDT , Service support ,
[2021-03-05 16:59] LABS: Absolute Lymphocyte Count 1.67 X10^3/uL (0.83-4.51); Absolute Neutrophil Count 3.3 X10^3/uL (2.0-7.7); Basophil# 0.04 X10^3/uL; Basophil% 0.7 % (0-1); Eosinophil# 0.23 X10^3/uL; Hemoglobin 13.2 g/dL (12.0-15.0); Lymphocyte # 1.67 X10^3/ul (0.83-4.51); Lymphocyte % 29.2 % (19-41); Mean Corp Hgb Conc 32.2 g/dL (32-36); Mean Corpuscular Hgb 29.1 pg (27.0-32.0); Mean Corpuscular Volume 90.5 fL (81-99); Mean Platelet Vol. 10.3 fl (6.2-12.0); Monocyte# 0.42 X10^3/uL; Monocyte% 7.3 % (0-10); NRBC Flagged by Analyzer 0 % (0-5); Neutrophil # 3.34 X10^3/uL (2.7-7.7); Neutrophil % 58.5 % (47-70); Platelet Count 205 K/mm3 (150-450); RBC Distribution Width CV 12.9 % (11.6-14.6); RBC Distribution Width SD 42.7 fl (35.1-43.9); Red Blood Count 4.53 M/mm3 (4.2-5.4); White Blood Count 5.7 K/mm3 (4.4-11.0)
[2021-03-05 17:25] LABS: ALB/GLOB Ratio 0.8 RATIO (0.9-2.4); AST(SGOT) 14 U/L (15-37); Alanine Aminotransfer ALT/SGPT 16 U/L (13-56); Albumin, Serum 3.3 g/dL (3.2-5.0); Alkaline Phosphatase 100 U/L (45-117); Anion Gap 5 (5-15); BUN 14 mg/dL (7-18); BUN/Creat Ratio 17.3 RATIO (10-20); Calcium,Total 8.9 mg/dL (8.5-10.1); Chloride 105 mmol/L (98-107); Creatinine, Serum 0.81 mg/dL (0.55-1.02); EST Glomerular Filtration Rate 73 mL/min (>60); Est Glom Filt Rate - Afr Amer 88 mL/min (>60); Globulin 4.4 g/dL (2.2-4.2); Glucose 89 mg/dL (74-106); Potassium 4.1 mmol/L (3.5-5.1); Protein, Total 7.7 g/dL (6.4-8.2); Sodium Level 136 mmol/L (136-145); Thyroid Stim Hormone (TSH) 4.66 uIU/mL (0.358-3.74)
[2021-03-05 17:45] LABS: Syphilis Antibodies Non-reactive; Vitamin B12 501 pg/mL (211-911); Vitamin D,25 Hydroxy 57.5 ng/mL
== END ==
LOC: POLAB3 16:05 → RAD 16:16
PROVIDERS: PCP Family Medicine Geriatric Medicine; Referring Provider Family Medicine Geriatric Medicine; Visit Provider Family Medicine Geriatric Medicine
DX: R53.83 Other fatigue (principal); E55.9 Vitamin D deficiency, unspecified; F01.50 Vascular dementia, unspecified severity, without behavioral disturbance, psychotic disturbance, mood disturbance, and anxiety; J41.0 Simple chronic bronchitis
CPT/HCPCS: 36415; 71046; 80053; 82306; 82607; 82746; 84443; 85025; 86780

== ENCOUNTER → 2021-03-08 10:47 | Outpatient (CLI) | payer MEDICARE, OTHER, SELFPAY ==
[2021-02-14 07:51] VITALS: BMI 30.5
== END ==
PROVIDERS: PCP Family Medicine Geriatric Medicine; Referring Provider Family Medicine Geriatric Medicine; Visit Provider Family Medicine Geriatric Medicine
DX: R06.89 Other abnormalities of breathing (principal)
CPT/HCPCS: 87635; C9803; U0005; U0003

== ENCOUNTER 2021-03-08 19:02 | Emergency (ER) | payer MEDICARE, OTHER, SELFPAY ==
[2021-02-14 07:51] VITALS: BMI 30.5
[2021-03-08 19:05] VITALS: BP 125/76; BP 146/75; PULSE 98; PULSE 99; RESP 20; RESP 25; TEMP 35.8; TEMP 36.6; O2SAT 90; O2SAT 92; BMI 29.2
--- NOTE | 2021-03-08 19:33 | EKG12_ITS ---
Test Reason : COUGH Blood Pressure : / mmHG Vent. Rate : 096 BPM Atrial Rate : 096 BPM P-R Int : 180 ms QRS Dur : 082 ms QT Int : 378 ms P-R-T Axes : 045 -16 039 degrees QTc Int : 477 ms Normal sinus rhythm Septal infarct , age undetermined Abnormal ECG Confirmed by TONNY COHEN, NAVDEEP ([id number]), editor in chief MARNIE VIZCARRA ([id number]) on 03/12/2021 1:22:48 PM Referred By: SUMAYA Confirmed By:NAVDEEP LANCASTER MD
--- NOTE | 2021-03-08 19:34 | EX.ED.DYSGE1 ---
HPI History of Present Illness Chief Complaint: Cough Detail of Chief Complaint: Cough that started 5 days ago Informant: patient and spouse/S.O. Narrative Narrative: To the emergency department with a cough that started 5 days ago. Patient was in transitional care unit for 2 weeks after a UTI and dehydration and generalized weakness. Patient was discharged from the transitional care unit 5 days ago. Patient's cough is been nonproductive. 4 days ago patient was seen in her primary care physician's office and was given IM antibiotics as well as a aerosol and sent home with a nebulizer. Patient continued to cough and was seen again yesterday. Patient was given more antibiotics. Patient today had a Covid test that was negative. Patient had a chest x-ray 4 days ago that was unremarkable. Patient continues to cough and has long stretches of coughing fits and so was referred to the emergency department tonight. Patient has some mild chest discomfort from all the coughing. She denies recent travel or surgery. She does have history of DVT but currently not anticoagulated. Prior similar symptoms: No PFSH PFSH Medical History aquired autoimmune encephalopathy Arthritis Asthma Back pain Bladder disease Cancer Cardiology follow-up encounter Dementia Dementia Depression Difficulty swallowing DVT (deep venous thrombosis) Falls Falls frequently Gastric reflux h/o back surgery Health care maintenance Heart disease High cholesterol History of heart attack History of stress test Hx of echocardiogram Hypertension Low iron Non-smoker Partial complex seizures Restless legs Seizures Shortness of breath on exertion TIA (transient ischemic attack) Walker as ambulation aid Home Medications lacosamide 100 mg tablet 100 mg PO BID 06/28/20 [History Last Taken 02/02/21 06:15] mirabegron 50 mg tablet,extended release 24 hr 100 mg PO QHS tablet 11/06/20 [History Last Taken Unknown] tolterodine 4 mg capsule,extended release 24 hr 4 mg PO DAILY cap 11/06/20 [History Last Taken 02/02/21 06:15] aspirin 81 mg PO DAILY 02/13/21 [History Last Taken Unknown] gabapentin 100 mg PO QHS 7 Days #7 cap 03/01/21 [Rx Last Taken Unknown] albuterol sulfate 2 puff INHALATION Q6H 03/08/21 [History Last Taken Unknown] atorvastatin 40 mg PO QHS 03/08/21 [History Last Taken Unknown] benzonatate 100 mg PO TID 03/08/21 [History Last Taken Unknown] codeine-guaifenesin 5 ml PO Q6H 03/08/21 [History Last Taken Unknown] donepezil 5 mg PO QHS 03/08/21 [History Last Taken Unknown] levofloxacin 250 mg PO DAILY 03/08/21 [History Last Taken Unknown] levothyroxine [Synthroid] 25 mcg PO DAILY 03/08/21 [History Last Taken Unknown] prednisone 20 mg PO DAILY 03/08/21 [History Last Taken Unknown] Allergy/AdvReac Type Severity Reaction Status Date / Time doxycycline Allergy Mild Vomiting Verified 03/08/21 19:05 oxycodone [From Percocet] Allergy Mild Confusion Verified 03/08/21 19:05 acetaminophen Allergy Other Verified 03/08/21 19:05 [From Darvocet-N] lamotrigine [From Lamictal] Allergy Lip Verified 03/08/21 19:05 Swelling latex Allergy Rash Verified 03/08/21 19:05 moxifloxacin HCl Allergy Other Verified 03/08/21 19:05 [From Avelox] propoxyphene napsylate Allergy Other Verified 03/08/21 19:05 [From Darvocet-N] zolpidem tartrate AdvReac Other Verified 03/08/21 19:05 [From Ambien] Family History Mother CVA (cerebral vascular accident) Father Myocardial infarction Surgical History H/O heart artery stent H/O kyphoplasty History of appendectomy History of cardiac catheterization History of esophagogastroduodenoscopy (EGD) History of laryngoscopy History of lumpectomy of left breast Hx of cataract extraction Hx of colonoscopy Hx of ventral hernia repair Social History household members: spouse housing: house Smoking Status: Never smoker alcohol intake: current alcohol intake frequency: a few times a week do you feel safe at home: Yes ROS ROS ED Constitutional Constitutional ED: Reports systems reviewed and no addt'l complaints, except as documented; Denies body ache(s), change in weight or chills Eyes Eyes: Denies acute decrease in peripheral vision, change in vision, double vision or loss of vision ENT ENT ED: Reports none; Denies ear pain, lip swelling, loss taste/smell, neck pain, otalgia or sore throat Cardiovascular Cardiovascular: Reports none; Denies abdominal pain, chest pain with activity, leg edema, lightheadedness, palpitations, rapid heart rate or syncope Respiratory/Chest Respiratory/Chest: Reports none and cough; Denies change in mental status, dry cough, dyspnea, hemoptysis, shortness of breath at rest, shortness of breath with exertion or sputum Gastrointestinal Gastrointestinal: Reports none; Denies abdominal pain, change in stool character, diarrhea, hematemesis, hematochezia, melena, rectal bleeding or vomiting Genitourinary Genitourinary ED: Reports none; Denies abdominal discomfort, anuria, dysuria, genital pain or polyuria Musculoskeletal Musculoskeletal: Reports none; Denies arthralgias, back pain, difficulty walking, extremity pain, muscle weakness or myalgias Integumentary Reports none; Denies abscess or rash Neurologic Neurologic: Reports none; Denies abnormal gait, confusion, focal weakness, frequent falls, headache(s), loss of vision, numbness, paresthesias, radicular pain, vertigo or weakness Psychiatric Psychiatric: Reports systems reviewed and no addt'l complaints, except as documented and none; Denies behavioral changes, confusion, difficulty concentrating, hallucinations, suicidal ideation, tactile hallucinations or visual hallucinations Endocrine Endocrinology: Denies none, cold intolerance, excessive sweating, fatigue or heat intolerance Hematologic/Lymphatic Hematologic/Lymphatic: Reports none; Denies anemia, easy bleeding or easy bruising Allergic/Immunologic Allergic/Immunologic ED: Denies as per HPI, none, lip swelling, mouth swelling, throat swelling, tongue swelling or hives EXAM Physical Exam Const Vital Signs: 03/08/21 19:05 03/08/21 21:06 03/08/21 21:07 Temperature 97.9 F 98.4 F Temperature Source Oral Oral Pulse Rate 98 98 Respiratory Rate 25 H 24 H Respiratory Effort Short of Breath Labored Respiratory Depth Shallow Respiratory Pattern Tachypnea Blood Pressure 146/75 H 144/81 H Blood Pressure Mean 98 102 Pulse Ox 90 95 Oxygen Delivery Method Room Air Room Air Nasal Cannula Oxygen Flow Rate (L/min) 2 03/08/21 22:00 03/08/21 23:00 Temperature 98.6 F 98.6 F Temperature Source Oral Oral Pulse Rate 90 95 Respiratory Rate 24 H 18 Respiratory Effort Respiratory Depth Respiratory Pattern Blood Pressure 124/91 H 124/88 H Blood Pressure Mean 102 100 Pulse Ox 95 95 Oxygen Delivery Method Venturi Mask Room Air Oxygen Flow Rate (L/min) 2 Positive well nourished and well developed General Appearance ED: well developed and NAD HEENT Reports TM's clear and moist mucous membranes normocephalic and atraumatic; Negative for trauma or tenderness Tympanic Membrane ED: Yes TM's clear Eyes PERRL and EOMs intact bilaterally General Eye ED: Negative for pale conjunctiva or scleral icterus Neck no lymphadenopathy, supple and no JVD General: Negative for tenderness Chest Wall inspection of chest normal and palpation of chest normal Chest: Negative for tenderness Resp normal respiratory effort and clear to auscultation bilaterally Effort and Inspection: Negative for respiratory distress or pain with movement Auscultation: Negative for rhonchi, wheezes or diminished lung sounds Cardio regular rate, regular rhythm, S1 normal heart sound, S2 normal heart sound and no murmurs Peripheral Pulses: pulses 2+ throughout GI normal to inspection, nondistended, normoactive bowel sounds, soft to palpation, non-tender, non-distended and no masses Back/Spine no CVA tenderness and no thoracic nor lumbar tenderness Extremity normal to inspection General Extremety ED: Negative for edema General Extremity: Negative for edema Neuro oriented x3, CN's II-XII intact bilaterally, no sensory deficits noted and gait normal Sensorium / Orientation: awake, alert, oriented to person, oriented to place and oriented to time Motor Exam: strength 5/5 throughout and strength abnormal Psych mental status grossly normal Skin no rashes or lesions noted and no wounds MDM MDM MDM Narrative Medical decision making narrative: Patient noted to have bilateral pulmonary emboli and was hypoxic on ambulation with O2 sat dropping to 87% on room air. Care of patient will be discussed with hospitalist evaluate patient for admission Lab Data Attestation: I reviewed the patient's lab results. Labs: Laboratory Results - last 24 hr 03/08/21 03/08/21 03/08/21 20:05 20:05 20:05 WBC 8.2 RBC 4.17 L Hgb 12.2 Hct 36.4 L MCV 87.3 MCH 29.3 MCHC 33.5 RDW Std Deviation 41.3 RDW Coeff of Jorge 12.9 Plt Count 206 MPV 9.8 Immature Gran % (Auto) 0.400 Neut % (Auto) 83.5 H Lymph % (Auto) 10.4 L [place] % (Auto) 5.6 Eos % (Auto) 0.0 Baso % (Auto) 0.1 Absolute Neuts (auto) 6.9 Absolute Lymphs (auto) 0.85 Nucleated RBC % 0 D-Dimer Quant (PE/DVT) 1.45 H* Sodium 137 Potassium 4.0 Chloride 106 Carbon Dioxide 23.0 Anion Gap 8 BUN 21 H Creatinine 0.79 Estim Creat Clear Calc 48.14 Est GFR (MDRD) Af Amer 91 Est GFR (MDRD) Non-Af 75 BUN/Creatinine Ratio 26.6 H Glucose 117 H Calcium 8.7 Troponin I High Sens 5.4 B-Natriuretic Peptide 03/08/21 20:05 WBC RBC Hgb Hct MCV MCH MCHC RDW Std Deviation RDW Coeff of Jorge Plt Count MPV Immature Gran % (Auto) Neut % (Auto) Lymph % (Auto) [place] % (Auto) Eos % (Auto) Baso % (Auto) Absolute Neuts (auto) Absolute Lymphs (auto) Nucleated RBC % D-Dimer Quant (PE/DVT) Sodium Potassium Chloride Carbon Dioxide Anion Gap BUN Creatinine Estim Creat Clear Calc Est GFR (MDRD) Af Amer Est GFR (MDRD) Non-Af BUN/Creatinine Ratio Glucose Calcium Troponin I High Sens B-Natriuretic Peptide 112.1 H Radiography Chest X-Ray - ED: 1 View Diagnostic Testing: Radiology Impression Chest X-Ray 03/08/21 20:33 IMPRESSION: Persistent mild bibasilar atelectasis or infiltrates in the lower lobes with interval improvement since previous exam. Electronically Signed: Porfirio Pereira MD at 20:54 EDT , Service support , Chest CTA 03/08/21 20:41 IMPRESSION: Findings consistent with pulmonary emboli to the right lower middle and left upper lobes. Mild generalized chronic interstitial changes and mild subsegmental atelectasis in the left upper lobe Large intrathoracic hiatal hernia Electronically Signed: Porfirio Pereira MD at 22:21 EDT , Service support , ADDENDUM: 03/08/21 2235 IMPRESSION: Findings consistent with pulmonary emboli to the right lower middle and left upper lobes. Mild generalized chronic interstitial changes and mild subsegmental atelectasis in the left upper lobe Large intrathoracic hiatal hernia N.B. : The above Results were Read Back by Porfirio Pereira MD to Dr. Herminia Solano MD, MD, and understanding confirmed on 03/08/2021 22:28:14 (ET). Electronically Signed: Porfirio Pereira MD at 22:21 EDT , Service support , 1 view chest x-ray obtained interpreted by myself as increased markings bilateral lower lobes. Radiology felt patient had mild bibasilar atelectasis or infiltrates in the lower lobes. Radiology felt there was interval improvement since previous exam. Discharge Plan Triage Chief Complaint: Cough ED Provider: Herminia Solano Dx/Rx/DC Orders Clinical Impression: Pulmonary emboli, Hypoxemia Prescriptions: No Action Vimpat 100 mg tablet 100 mg PO BID RF: 0 Myrbetriq 50 mg tablet extended release 24 hr 100 mg PO QHS RF: 0 tolterodine [Detrol LA] 4 mg capsule,extended release 24hr 4 mg PO DAILY RF: 0 aspirin 81 mg tablet,delayed release (DR/EC) 81 mg PO DAILY RF: 0 gabapentin 100 mg Capsule 100 mg PO QHS 7 Days Qty: 7 RF: 0 atorvastatin 40 mg tablet 40 mg PO QHS RF: 0 donepezil 5 mg Tablet 5 mg PO QHS RF: 0 prednisone 20 mg Tablet 20 mg PO DAILY RF: 0 levofloxacin 250 mg Tablet 250 mg PO DAILY RF: 0 levothyroxine [Synthroid] 25 mcg Tablet 25 mcg PO DAILY RF: 0 benzonatate 100 mg capsule 100 mg PO TID RF: 0 codeine-guaifenesin 10-100 mg/5 mL liquid 5 ml PO Q6H RF: 0 albuterol sulfate 90 mcg/actuation HFA aerosol inhaler 2 puff INHALATION Q6H RF: 0 Primary Care Provider: Arun Ramos Chi Referrals: Arun Ramos Chi, MD [Primary Care Provider] - Disposition Disposition: Acute Care Hospital [facility]
[2021-03-08 20:14] LABS: Absolute Lymphocyte Count 0.85 X10^3/uL (0.83-4.51); Absolute Neutrophil Count 6.9 X10^3/uL (2.0-7.7); Basophil# 0.01 X10^3/uL; Basophil% 0.1 % (0-1); Hematocrit 36.4 % (37-47); Hemoglobin 12.2 g/dL (12.0-15.0); Lymphocyte # 0.85 X10^3/ul (0.83-4.51); Lymphocyte % 10.4 % (19-41); Mean Corp Hgb Conc 33.5 g/dL (32-36); Mean Corpuscular Hgb 29.3 pg (27.0-32.0); Mean Corpuscular Volume 87.3 fL (81-99); Mean Platelet Vol. 9.8 fl (6.2-12.0); Monocyte# 0.46 X10^3/uL; Monocyte% 5.6 % (0-10); NRBC Flagged by Analyzer 0 % (0-5); Neutrophil # 6.86 X10^3/uL (2.7-7.7); Neutrophil % 83.5 % (47-70); Platelet Count 206 K/mm3 (150-450); RBC Distribution Width CV 12.9 % (11.6-14.6); RBC Distribution Width SD 41.3 fl (35.1-43.9); Red Blood Count 4.17 M/mm3 (4.2-5.4); White Blood Count 8.2 K/mm3 (4.4-11.0)
--- NOTE | 2021-03-08 20:33 | RAD_ITS ---
STUDY: X-RAY CHEST REASON FOR EXAM: Female, 80 years old. cough TECHNIQUE: AP portable COMPARISON: 03/05/2021 FINDINGS: There is mild prominence of markings in both lower lobes slightly greater on the left.. There is no demonstrated pleural abnormality. Normal size heart. Normal mediastinum and kamryn. Normal visualized pulmonary arteries. Normal visualized aortic arch and descending thoracic aorta. Normal visualized thoracic spine. Normal visualized, clavicles, and shoulders. Healed right rib fracture is noted Large hiatal hernia is noted. Surgical clips in left axilla. There is no demonstrated abnormality of the visualized soft tissue structures of the upper abdomen. There is improved aeration of the lower lobes since previous study RAD/Chest 1 View (Portable) IMPRESSION: Persistent mild bibasilar atelectasis or infiltrates in the lower lobes with interval improvement since previous exam. Electronically Signed: Porfirio Pereira MD at 20:54 EDT , Service support ,
[2021-03-08 20:39] LABS: D-Dimer Quantitative (DVT/PE) 1.45 FEU/ug/m (0.27-0.49)
--- NOTE | 2021-03-08 20:41 | CT_ITS ---
We are attempting to reach an attending provider to discuss findings. An addendum with communication details will be sent when the communication is complete. STUDY: CTA CHEST REASON FOR EXAM: Female, 80 years old. cough, chest pain, elevated d-dimer RADIATION DOSAGE (If Supplied By Facility): CTDIvol = ( 7.15 ) mGy, DLP = ( 209.99 ) mGycm TECHNIQUE: The examination was performed with the intravenous administration of IV 100mL Isovue-370. Post-processing of the angiographic images was performed, with multiplanar reformation and 3D reconstruction. Individualized dose optimization techniques were used for this CT. COMPARISON: Portable chest 03/08/2022 FINDINGS: Normal enhancement of the main pulmonary artery and right and left pulmonary arteries. There is intraluminal clot noted within the descending interlobar branch of the right pulmonary artery as well as segmental branches to the right middle lobe and left upper lobe.. Atherosclerotic changes of the aorta without evidence for aneurysm. There is no demonstrated aortic dissection. Heart is normal in size. Normal mediastinum. Normal hilar regions. Normal visualized trachea and bronchi. There is minor interstitial thickening and thickening of the bronchial baltazar.. There is mild subsegmental atelectasis in the left upper lobe. Tiny calcified nodule in left lower lobe.. Normal pleura. Normal chest wall structures. Dorsal spine demonstrates degenerative change. There are chronic compression fractures. Large intrathoracic hiatal hernia is noted with mild dilatation of the proximal esophagus. Normal visualized upper abdomen. CT/CTA Chest W/WO Contrast IMPRESSION: Findings consistent with pulmonary emboli to the right lower middle and left upper lobes. Mild generalized chronic interstitial changes and mild subsegmental atelectasis in the left upper lobe Large intrathoracic hiatal hernia Electronically Signed: Porfirio Pereira MD at 22:21 EDT , Service support ,
[2021-03-08 21:00] LABS: Anion Gap 8 (5-15); BUN 21 mg/dL (7-18); BUN/Creat Ratio 26.6 RATIO (10-20); Calcium,Total 8.7 mg/dL (8.5-10.1); Chloride 106 mmol/L (98-107); Creatinine, Serum 0.79 mg/dL (0.55-1.02); EST Glomerular Filtration Rate 75 mL/min (>60); Est Glom Filt Rate - Afr Amer 91 mL/min (>60); Estimated Creatinine Clearance 48.14 ml/min; Glucose 117 mg/dL (74-106); Sodium Level 137 mmol/L (136-145); Troponin-I HS 5.4 pg/mL (3.0-53.7)
[2021-03-08 21:06] VITALS: O2SAT 90
[2021-03-08 21:07] VITALS: BP 144/81; PULSE 94; PULSE 98; RESP 24; TEMP 36.9; O2SAT 95
[2021-03-08 21:16] LABS: BNP,B-Type NATRIURETIC PEPTIDE 112.1 pg/mL (0-100)
[2021-03-08 22:00] VITALS: BP 124/91; PULSE 90; RESP 24; TEMP 37; O2SAT 95
[2021-03-08] MEDS: guaiFENesin 10 ML UDC (200MG/10ML) PO (22:30)
[2021-03-08 23:00] VITALS: BP 124/88; BP 137/86; PULSE 100; PULSE 95; RESP 18; RESP 24; TEMP 37; O2SAT 93; O2SAT 95
--- NOTE | 2021-03-08 23:03 | ED.RN ---
pt ambulated on room air, pulse ox 87%, hr 112
--- NOTE | 2021-03-09 00:25 | PCM.HP.STD ---
HPI - General HPI Narrative SHELDON ALAN, is a 80 F with a significant history of hypertension; seizure disorder; left breast cancer status post all 3 who presents with 5-day history of progressively worsening productive cough. Onset of her symptoms is shortness of breath. Patient has been treated with antibiotics and steroids without any improvement. While at the emergency department with initial ambulation her oxygen saturation was 87%. An initial decision was made by ED doc to help patient be observed at the hospital. [facility] Medical History aquired autoimmune encephalopathy Arthritis Asthma Back pain Bladder disease Cancer Cardiology follow-up encounter Dementia Dementia Depression Difficulty swallowing DVT (deep venous thrombosis) Falls Falls frequently Gastric reflux h/o back surgery Health care maintenance Heart disease High cholesterol History of heart attack History of stress test Hx of echocardiogram Hypertension Low iron Non-smoker Partial complex seizures Restless legs Seizures Shortness of breath on exertion TIA (transient ischemic attack) Walker as ambulation aid Home Medications lacosamide 100 mg tablet 100 mg PO BID 06/28/20 [History Last Taken 02/02/21 06:15] mirabegron 50 mg tablet,extended release 24 hr 100 mg PO QHS tablet 11/06/20 [History Last Taken Unknown] tolterodine 4 mg capsule,extended release 24 hr 4 mg PO DAILY cap 11/06/20 [History Last Taken 02/02/21 06:15] aspirin 81 mg PO DAILY 02/13/21 [History Last Taken Unknown] gabapentin 100 mg PO QHS 7 Days #7 cap 03/01/21 [Rx Last Taken Unknown] albuterol sulfate 2 puff INHALATION Q6H 03/08/21 [History Last Taken Unknown] atorvastatin 40 mg PO QHS 03/08/21 [History Last Taken Unknown] benzonatate 100 mg PO TID 03/08/21 [History Last Taken Unknown] codeine-guaifenesin 5 ml PO Q6H 03/08/21 [History Last Taken Unknown] donepezil 5 mg PO QHS 03/08/21 [History Last Taken Unknown] levofloxacin 250 mg PO DAILY 03/08/21 [History Last Taken Unknown] levothyroxine [Synthroid] 25 mcg PO DAILY 03/08/21 [History Last Taken Unknown] prednisone 20 mg PO DAILY 03/08/21 [History Last Taken Unknown] apixaban [Eliquis] 5 mg PO BID #74 tab 03/09/21 [Rx Last Taken Unknown] Allergy/AdvReac Type Severity Reaction Status Date / Time doxycycline Allergy Mild Vomiting Verified 03/08/21 19:05 oxycodone [From Percocet] Allergy Mild Confusion Verified 03/08/21 19:05 acetaminophen Allergy Other Verified 03/08/21 19:05 [From Darvocet-N] lamotrigine [From Lamictal] Allergy Lip Verified 03/08/21 19:05 Swelling latex Allergy Rash Verified 03/08/21 19:05 moxifloxacin HCl Allergy Other Verified 03/08/21 19:05 [From Avelox] propoxyphene napsylate Allergy Other Verified 03/08/21 19:05 [From Darvocet-N] zolpidem tartrate AdvReac Other Verified 03/08/21 19:05 [From Ambien] Family History Mother CVA (cerebral vascular accident) Father Myocardial infarction Surgical History H/O heart artery stent H/O kyphoplasty History of appendectomy History of cardiac catheterization History of esophagogastroduodenoscopy (EGD) History of laryngoscopy History of lumpectomy of left breast Hx of cataract extraction Hx of colonoscopy Hx of ventral hernia repair Social History household members: spouse housing: house Smoking Status: Never smoker alcohol intake: current alcohol intake frequency: a few times a week do you feel safe at home: Yes ROS ROS Narrative Constitutional: Reports fatigue and malaise. Eyes: Denies blurry vision, change in eye color, change in vision, discharge from eye(s), double vision, erythema, eye pain, loss of vision or other HEENT: Denies abnormal hearing, dysphagia, ear pain, epistaxis, headache(s), hearing loss, nasal congestion, nasal discharge, post nasal drip, sinus pressure, sore throat or other Cardiovascular: Report/Denies chest pain. Denies dyspnea on exertion, orthopnea and paroxysmal nocturnal dyspnea Respiratory/Chest: Reports productive cough. Report sob. Gastrointestinal: Denies abdominal pain, coffee ground emesis, constipation, diarrhea, dyspepsia, hematemesis, hematochezia, loose stools, melena, nausea, vomiting or other Genitourinary: Denies burning urination, difficulty urinating, dysuria, hematuria, nocturia, urinary frequency, urinary hesitancy, urinary incontinence, urinary urgency or other Musculoskeletal: Denies arthralgias, back pain, joint pain, joint stiffness, joint swelling, myalgias, neck pain or other Neurologic: Denies abnormal gait, abnormal speech, confusion, disequilibrium, dizziness, focal weakness, headache(s), numbness, paresthesias, seizure-like activity, seizures, syncope, tingling, tremor(s) or other Psychiatric: Denies anxiety, depression, homicidal ideation, suicidal ideation or other Endocrinology: Denies change in body appearance, cold intolerance, excessive sweating, heat intolerance, polydipsia, polyuria or other Hematologic/Lymphatic: Denies anemia, easy bleeding, easy bruising, lymphadenopathy or other Integumentary: Reports/Denies ulcer on buttocks. Allergic/Immunologic: Denies rhinitis, hives, eczema, asthma or other Vital Signs Vital Signs Vital Signs: 03/08/21 19:05 03/08/21 21:06 03/08/21 21:07 Temperature 97.9 F 98.4 F Temperature Source Oral Oral Pulse Rate 98 98 Respiratory Rate 25 H 24 H Respiratory Effort Short of Breath Labored Respiratory Depth Shallow Respiratory Pattern Tachypnea Blood Pressure 146/75 H 144/81 H Blood Pressure Mean 98 102 Pulse Ox 90 95 Oxygen Delivery Method Room Air Room Air Nasal Cannula Oxygen Flow Rate (L/min) 2 03/08/21 22:00 03/08/21 23:00 Temperature 98.6 F 98.6 F Temperature Source Oral Oral Pulse Rate 90 100 Respiratory Rate 24 H 24 H Respiratory Effort Respiratory Depth Respiratory Pattern Blood Pressure 124/91 H 137/86 H Blood Pressure Mean 102 103 Pulse Ox 95 93 Oxygen Delivery Method Venturi Mask Nasal Cannula Oxygen Flow Rate (L/min) 2 2 Weight Weight: 65.771 kg Body Mass Index (BMI) 29.2 Results Lab / Micro Data Result Diagrams: 03/08/21 20:05 03/08/21 20:05 Labs: Laboratory Results - last 24 hr 03/08/21 20:05: WBC 8.2, RBC 4.17 L, Hgb 12.2, Hct 36.4 L, MCV 87.3, MCH 29.3, MCHC 33.5, RDW Std Deviation 41.3, RDW Coeff of Jorge 12.9, Plt Count 206, MPV 9.8, Immature Gran % (Auto) 0.400, Neut % (Auto) 83.5 H, Lymph % (Auto) 10.4 L, [place] % (Auto) 5.6, Eos % (Auto) 0.0, Baso % (Auto) 0.1, Absolute Neuts (auto) 6.9, Absolute Lymphs (auto) 0.85, Nucleated RBC % 0 03/08/21 20:05: D-Dimer Quant (PE/DVT) 1.45 H* 03/08/21 20:05: Sodium 137, Potassium 4.0, Chloride 106, Carbon Dioxide 23.0, Anion Gap 8, BUN 21 H, Creatinine 0.79, Estim Creat Clear Calc 48.14, Est GFR (MDRD) Af Amer 91, Est GFR (MDRD) Non-Af 75, BUN/Creatinine Ratio 26.6 H, Glucose 117 H, Calcium 8.7, Troponin I High Sens 5.4 03/08/21 20:05: B-Natriuretic Peptide 112.1 H Micro: Microbiology 03/08/21 19:39 Mucosa - Nasopharyngeal Rapid RSV (DFA) - Final Radiology Impression Chest X-Ray 03/08/21 20:33 IMPRESSION: Persistent mild bibasilar atelectasis or infiltrates in the lower lobes with interval improvement since previous exam. Electronically Signed: Porfirio Pereira MD at 20:54 EDT , Service support , Chest CTA 03/08/21 20:41 IMPRESSION: Findings consistent with pulmonary emboli to the right lower middle and left upper lobes. Mild generalized chronic interstitial changes and mild subsegmental atelectasis in the left upper lobe Large intrathoracic hiatal hernia Electronically Signed: Porfirio Pereira MD at 22:21 EDT , Service support , ADDENDUM: 03/08/212234 IMPRESSION: Findings consistent with pulmonary emboli to the right lower middle and left upper lobes. Mild generalized chronic interstitial changes and mild subsegmental atelectasis in the left upper lobe Large intrathoracic hiatal hernia N.B. : The above Results were Read Back by Porfirio Pereira MD to Dr. Herminia Solano MD, MD, and understanding confirmed on 03/08/2021 22:28:14 (ET). Electronically Signed: Porfirio Pereira MD at 22:21 EDT , Service support , Assessment & Plan Assessment/Plan (1) Pulmonary emboli: QUALIFIERS: Pulmonary embolism type: multiple subsegmental (without acute cor pulmonale) Qualified Code(s): I26.94 - Multiple subsegmental pulmonary emboli without acute cor pulmonale (2) Respiratory insufficiency: PLAN: Review emergency department labs showed elevated D-dimer at 1.45. Radiologist impression of chest CTA: Findings consistent with pulmonary emboli to the right lower middle and left upper lobes. Mild generalized chronic interstitial changes and mild subsegmental atelectasis in the left upper lobe Large intrathoracic hiatal hernia. Reportedly initial oxygen saturation was 87% with ambulation. Instructed ED doc to work with patient again and upon second ambulation patient oxygen saturation was more than 92%. Discussed with ED doctor to discharge patient home. Eliquis was prescribed by ED doctor. Patient to use incentive spirometer at home. Charges/Coding Multi Select Codes Visit Charges Office Visit/Consults: 73751 ED Visit; Moderate Severity
--- NOTE | 2021-03-09 00:44 | ED.RN ---
pt ambulated in the bellamy 92% on room air, hr 99
[2021-03-09] MEDS: APIXABAN 5 MG TABLET 10 MG PO (00:50)
[2021-03-09 01:49] VITALS: BP 154/80; PULSE 84; RESP 20; O2SAT 93
== END 2021-03-09 01:50 | disposition home or self-care (01) ==
PROVIDERS: Emergency Provider Emergency Medicine; PCP Family Medicine Geriatric Medicine
DX: J10.1 Influenza due to other identified influenza virus with other respiratory manifestations (principal); I26.99 Other pulmonary embolism without acute cor pulmonale; I10 Essential (primary) hypertension; E78.00 Pure hypercholesterolemia, unspecified; F03.90 Unspecified dementia, unspecified severity, without behavioral disturbance, psychotic disturbance, mood disturbance, and anxiety; F32.9 Major depressive disorder, single episode, unspecified; G25.81 Restless legs syndrome; R06.89 Other abnormalities of breathing; G40.909 Epilepsy, unspecified, not intractable, without status epilepticus; I25.2 Old myocardial infarction; Z86.73 Personal history of transient ischemic attack (TIA), and cerebral 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; J45.909 Unspecified asthma, uncomplicated; K21.9 Gastro-esophageal reflux disease without esophagitis; R29.6 Repeated falls; Z79.01 Long term (current) use of anticoagulants; Z79.52 Long term (current) use of systemic steroids; Z79.82 Long term (current) use of aspirin; Z79.899 Other long term (current) drug therapy; Z85.3 Personal history of malignant neoplasm of breast; Z86.718 Personal history of other venous thrombosis and embolism
CPT/HCPCS: 71045; 71275; 80048; 83880; 84484; 85025; 85379; 87633; 87635; 87807; 93005; 99285; C9803; Q9967; U0005; A4216; U0003

== ENCOUNTER → 2021-04-10 16:16 | Outpatient (CLI) | payer MEDICARE, OTHER, SELFPAY | PROVIDERS: PCP Family Medicine Geriatric Medicine; Visit Provider Family Medicine Geriatric Medicine | DX: E03.9 Hypothyroidism, unspecified (principal) | CPT/HCPCS: 36415; 84443 ==

== ENCOUNTER → 2021-05-09 11:12 | Outpatient (CLI) | payer MEDICARE, OTHER, SELFPAY | PROVIDERS: PCP Family Medicine Geriatric Medicine; Referring Provider Nurse Practitioner Acute Care; Visit Provider Nurse Practitioner Acute Care | DX: J47.9 Bronchiectasis, uncomplicated (principal); R06.02 Shortness of breath; I26.94 Multiple subsegmental thrombotic pulmonary emboli without acute cor pulmonale | CPT/HCPCS: 94667; 99251; G0463 ==

== ENCOUNTER 2021-07-16 14:30 | Outpatient (RCR) | payer MEDICARE, OTHER, SELFPAY ==
--- NOTE | 2021-05-21 15:51 | HP.PTEVAL ---
Patient's Visit Information SHELDON ALAN is a 80 year old F referred to Physical Therapy by Dr. Arun Ramos MD with a diagnosis of weakness/falls. Date of Evaluation: 05/21/21 Physical Therapist: MEHNAZ Stephen - Visit Plan Frequency: 2x /Week Duration: 2 Months Plan: 2X/ for 8 weeks for neutral core stability, balance, gait, LE strengthening, sit to stand transfers with HEP. HEP: bridges - Subjective Pt has pre senile dementia and moved here from [place] almost a year ago. She started to have difficulty right before the move with weakness and trouble opening bottles. She has more weakness in her R leg than her L and she now has to use her rollator in the house. She looses her balance with she goes fast or turns corners. She usually falls when moving BW also or when she is distracted. She has been here once or twice here for PT. She was [facility] for Pt as well and they did walking and small amount of balance. She went twice a week for a few weeks. She did not get significantly better and came here. She has no stairs at home. She uses the rollator everywhere she goes. They have a transport chair if she needs pushed. She is sitting more at home. She has a caregiver M-F from 05-21 and someone on Friday from 05-21. She will take her on outings on Sat with a emergency medical technician/driver. She gets out and walks on the site seeing places. She is able to get in and out of bed with a foot stool and also uses bars to get on and off the toilet and bars in the shower and a shower chair. Standing doing dishes might possibly be too long. She sometimes get dizzy. She feels that she could take a nap every afternoon but does not. Pt has had at least 2-3 falls in the last 6 weeks. She does no lifting with her L arm due to Lymphedema due to previous breast CA. One problems the pt has is that her memory is really bad and she might ask to repeat things. - Objective Rolling over on mat table pt struggles with moving her trunk as well as her LE's. Sit to stand: pt has decrease FW lean and uses B arm of the chair to get to standing and uses them until she has full balance. Sitting posture: sits with a major PPT. Gait: Walks with a rollator walker and shorter strides. Stairs: up and down recip with 2 hand rails. Tinetti 16. LE MMT: R hip flex 3+/5 and l 4-/5, R knee flex 4/5 and L knee fle 4-/5, B hip abd 4-/5, Pt is able to do 3/5 normal ROM bridge with stretching of the anterior thighs. Pt is able to rise up on heels and toes - Balance/Special Test Scores Tinetti Balance Score: 7 Tinetti Gait Score: 9 Tinetti Balance & Gait Score: 16 Lower Extremity Functional Score: 19 - Anticipated Interventions Patient/Client Instruction: Educate patient on: Condition, Plan of Care For the Purpose of:: To improve muscle performance and motor function, To improve ability to perform ADL's, To increase tolerance to activity/condition/position, To improve performance and independence with ADL's, To decrease level of supervision to perform tasks, To improve ability of physical actions for home/community/work/leisure Therapeutic Exercise to Include: Strength training, Postural training, Flexibilty training, Gait and locomotor training, Dynamic Lumbar Stabilization, Scapular Strength/Stabilization For the Purpose of:: To improve muscle performance and motor function, To increase tolerance to activity/condition/position, To improve performance and independence with ADL's, To decrease level of supervision to perform tasks, To improve ability of physical actions for home/community/work/leisure, To improve gait and locomotor functions, To improve health of tissue, To increase flexibility/ROM, To improve balance, To improve safety with gait Functional Training to Include: Gait training For the Purpose of:: To improve gait and locomotor functions, To improve safety with gait Thank you for the opportunity to evaluate your patient. For Medicare and Medicare HMO plans, please review the plan of care and approve it. It will need to be FAXED BACK to us at [phone] for Medicare purposes. For Medicare only, by signing this I certify the plan of care. Please let me know if there are questions or concerns regarding this plan of care. Physician Signature: Date:
--- NOTE | 2021-05-21 16:25 | HP.OTEVAL_ITS ---
Patient's Visit Information SHELDON ALAN is a 80 year old F, referred to Occupational Therapy by Dr. Arun Ramos MD, with a diagnosis of weakness/falls. Date of Evaluation: 05/21/21 Occupational Therapist: Jerri Boyd, MARCELR/Tori, CHT - Subjective This 80 year old female was seen for OT eval with dx of weakness/frequent falls- pt states since her dr. visit on 05/10/21 pt had a fall. pt states she feels her right leg is weaker- pt states she has more strength in her left leg- pt states she can use couch or table to get up- pt states she does feel her arms are not strong and could get stronger. pt states she does not exercise on a regular basis. pt states she has been having Physical therapy for about 4 weeks ( about 8 PT visits) pt states she felt - ADLs Eating: Use silverware, Cut food Bathing: Handle washcloth & soap, Squeeze shampoo bottle Comments: use of shower chair Comments: pt states she has a caregiver Friday- Sat. 10am-4pm. pt states the caregiver assist with bathing/dressing and when not assisting with personal care. pt states she does have a lab top to work with genealogy and emails but pt states she is struggling with getting on the computer. pt states she does have initial dementia and has noticed more than one instruction is difficult for her to to mtg. pt has rollator and has initiated using it outside of home and in home. pt states weakness is major factor in her mobility and performing her ADLs and IADLs. - ROM ROM Comments: pt demo with bilateral hand OA deformities. - Strength [employer]: right 30# left 20# Lateral Pinch: right 2# left trace Tripod Pinch: right trace left 2# - Quick DASH-Disab of Arm,Shoulder& Hand Quick DASH Score: 65.9075 - Goals Goal:: Pt will demo a increase in BUE MMT 4+/5 to increase pts ind. with functional mobility and ADls by d/c Goal:: pt will demo the ability to write 2 sentences legibly with use of ad. pen/penciled by dc Goal:: Pt and pts spouse will demo understanding of ad. eq. to increase safety with ADLs and IADLs by d/c - Rehabilitation General Assessment: pt demo with bilateral UB weakness limiting pts safe functional mobility and performance of ADls and IADLs. pt demo a need for skilled OT services 1-2x week for 4 weeks to increase pts strength for increased ind. with ADLs and IADLS. Pt and pts spouse agree with POC. Rehabilitation Potential: Good - Anticipated Interventions A/AAROM/PROM, Strengthening, Fine Motor Coord/Juan Alberto, ADL Training, Education re assistive Equipment, Caregiver Training, Home Program - Visit Plan Frequency: 1-2x /Week Duration: 4 Weeks TEXT: Thank you for the opportunity to evaluate your patient. For Medicare and Medicare HMO plans, please review the plan of care and approve it. It will need to be FAXED BACK to us at [phone] for Medicare purposes. Please let me know if there are questions or concerns regarding this plan of care. Physician Signature: Date:
--- NOTE | 2021-06-18 15:38 | HP.PTREVAL ---
Dr. Arun Ramos MD, It has been my pleasure to treat SHELDON ALAN over the last 7 visits for weakness/falls. Please see the progress note below for an update on the physical therapy plan of care! Subjective: Pt reports that she seems to be doing things more slowly and intent when try to do things and tries to do things to protect herself from falling. She did not fall this week but there were times that she was unsteady. She pretty much takes the walker with her at all times or her husnand reminds her to take the walker with her or he would bring it to her. Pt seems to be slower getting up from the chair and her strength in her legs are really weak still. She still struggles getting out of a chair. Her L hip where she fell is still black and blue about a month ago and still has not seen her Dr and there is a lump there. Objective/Function: Sit to stand:uses arms and stands up with retro balance until reaches fw onto her rollator. LE MMT:R hip flex 3+/5 and l 4-/5, R knee flex 4/5 and L knee fle 4-/5, B hip abd 4-/5, Pt is able to do 3/5 normal ROM bridge with stretching of the anterior thighs. Pt is able to rise up on heels and toes)... remains the same. Gait: Walks with shorter stride with use of rollator. Tinetti: 17. Walker to chair transfers: Pt struggles to turn her rollator 180 degrees Plan Plan: Add sit to stand transfers with leaning fw to stand up once she is scooted to the end of the chair. Work on 180 degree turns with rollator. Work on leg strength to get out of a chair. 2X/ for 8 weeks for neutral core stability, balance, gait, LE strengthening, sit to stand transfers with HEP. HEP: bridges Balance/Gait/Functional tests - Balance/Special Test Scores Tinetti Balance Score: 8 Tinetti Gait Score: 9 Tinetti Balance & Gait Score: 17 Lower Extremity Functional Score: 49 Goals Goal 1:: Walk with increase stride and upright posture with rollating walker with SBA Goal Time Frame: 6-8 Weeks Goal 2:: Increase LE strength by 1/2 muscle grade: (at time of the eval: R hip flex 3+/5 and l 4-/5, R knee flex 4/5 and L knee fle 4-/5, B hip abd 4-/5, Pt is able to do 3/5 normal ROM bridge with stretching of the anterior thighs. Pt is able to rise up on heels and toes) Goal Time Frame: 6-8 Weeks Goal 3:: Be able to sit to stand with fw weight shift Goal Time Frame: 6-8 Weeks Goal 4:: Increase Tinetti by 5 points (score of 18 at eval) Goal Time Frame: 6-8 Weeks Goal 5:: Pt to use safety with walker when going to sit down in the chair. Goal Time Frame: 6-8 Weeks Anticipated Interventions Patient/Client Instruction: Educate patient on: Condition, Plan of Care For the Purpose of:: To improve muscle performance and motor function, To improve ability to perform ADL's, To increase tolerance to activity/condition/position, To improve performance and independence with ADL's, To decrease level of supervision to perform tasks, To improve ability of physical actions for home/community/work/leisure Therapeutic Exercise to Include: Strength training, Postural training, Flexibilty training, Gait and locomotor training, Dynamic Lumbar Stabilization, Scapular Strength/Stabilization For the Purpose of:: To improve muscle performance and motor function, To increase tolerance to activity/condition/position, To improve performance and independence with ADL's, To decrease level of supervision to perform tasks, To improve ability of physical actions for home/community/work/leisure, To improve gait and locomotor functions, To improve health of tissue, To increase flexibility/ROM, To improve balance, To improve safety with gait Functional Training to Include: Gait training For the Purpose of:: To improve gait and locomotor functions, To improve safety with gait Please do not hesitate to contact me at [phone] by phone or if you have questions or concerns regarding this new plan of care! Sincerely, Nilda Patel, MPT
--- NOTE | 2021-09-06 13:21 | HP.OT.NRP ---
SHELDON ALAN was seen in my office for initial evaluation on 05/21/21. The following Plan of Care was established for this patient: Initial Frequency: 1-2x /Week Initial Duration: 4 Weeks Plan: cont with OT POC Anticipated Interventions: A/AAROM/PROM, Strengthening, Fine Motor Coord/Juan Alberto, ADL Training, Education re assistive Equipment, Caregiver Training, Home Program This patient was last seen in our office 07/16/21. Pertinent comments regarding their Occupational therapy will appear below: Due to time lapse in services pt d/c at this time. At this point I will be discontinuing this patient from occupational therapy. I would be happy to see this patient again in the future if found appropriate by the physician. Thank you! Jerri Boyd, OTR/L, CHT
== END 2021-07-16 19:00 | disposition home or self-care (01) ==
LOC: OT 14:30
PROVIDERS: PCP Family Medicine Geriatric Medicine; Referring Provider Family Medicine Geriatric Medicine; Visit Provider Family Medicine Geriatric Medicine
DX: R53.1 Weakness (principal); R29.6 Repeated falls
CPT/HCPCS: 97110; 97162; 97164; 97166; 97530

== ENCOUNTER → 2021-07-24 09:30 | Outpatient (CLI) | payer MEDICARE, OTHER, SELFPAY ==
[2021-07-24 12:28] LABS: Absolute Neutrophil Count 3.8 X10^3/uL (2.0-7.7); Basophil# 0.04 X10^3/uL; Basophil% 0.7 % (0-1); Eosinophils% 3.4 % (0-5); Hematocrit 39.4 % (37-47); Lymphocyte % 26.9 % (19-41); Mean Corpuscular Hgb 31.3 pg (27.0-32.0); Mean Corpuscular Volume 94.7 fL (81-99); Mean Platelet Vol. 10.2 fl (6.2-12.0); Monocyte# 0.33 X10^3/uL; Monocyte% 5.5 % (0-10); NRBC Flagged by Analyzer 0 % (0-5); Neutrophil # 3.76 X10^3/uL (2.7-7.7); Neutrophil % 63.2 % (47-70); Platelet Count 196 K/mm3 (150-450); RBC Distribution Width CV 12.4 % (11.6-14.6); RBC Distribution Width SD 43.1 fl (35.1-43.9); Red Blood Count 4.16 M/mm3 (4.2-5.4)
--- NOTE | 2021-07-24 12:41 | RAD_ITS ---
STUDY: X-RAY - LUMBAR SPINE REASON FOR EXAM: Female, 80 years old. Back pain DORSALGIA TECHNIQUE: XR Spine Lumbar Comp W/ Bending Min 6 Views COMPARISON: 08/07/2020 FINDINGS: Normal lumbar lordosis. There is no substantial scoliosis. There is a normal alignment of the vertebrae. Vertebral plasty changes at L4, L2, and L3. There is multilevel endplate spondylosis of the lumbar vertebrae. There is multi-level degenerative disc disease with multi-level disc space narrowing. There are atherosclerotic vascular calcifications. The soft tissue structures are unremarkable. RAD/L/S Spine Comp/w Bending Views IMPRESSION: Degenerative changes of the spine, as detailed above. Electronically Signed: Gunnar Kendrick MD at 15:56 EST , Service support ,
--- NOTE | 2021-07-24 12:42 | RAD_ITS ---
EXAM: XR THORACIC SPINE, 2 VIEWS CLINICAL INDICATION: DORSALGIA TECHNIQUE: Frontal and lateral views of the thoracic spine. This report was created using [employer] report generation technology. COMPARISON: T-spine series 08/07/2020 FINDINGS: VERTEBRAE: Stable compression deformity in the midthoracic to lower spine. Vertebral plasty changes in the lumbar spine. There is endplate spondylosis of the vertebral body. Loss of intervertebral disc height. Preservation of the normal thoracic kyphosis. No significant facet arthropathy. DISC SPACES: Unremarkable. Disc spaces are maintained. RAD/Thoracic Spine 2 Views IMPRESSION: Stable compression deformity in the midthoracic to lower spine. Electronically Signed: Gunnar Kendrick MD at 15:54 EST , Service support ,
--- NOTE | 2021-07-24 12:45 | RAD_ITS ---
EXAM: XR LEFT HUMERUS, 2 OR MORE VIEWS CLINICAL INDICATION: PAIN IN ARM Technologist Notes FELL OUT OF BED ON FRIDAY. PAIN TO LEFT ARM SINCE. TECHNIQUE: Frontal and lateral views of the left humerus. This report was created using [employer] report [employer] technology. COMPARISON: None. FINDINGS: BONES/JOINTS: Unremarkable. No acute fracture. No subluxation. Normal alignment. Preservation of the joint space. No sclerotic or destructive changes observed. SOFT TISSUES: Unremarkable. No soft tissue swelling or gas. No radiopaque foreign body. RAD/Humerus min 2 Views IMPRESSION: Negative left humerus x-rays. Electronically Signed: Gunnar Kendrick MD at 15:53 EST , Service support ,
[2021-07-24 13:03] LABS: Vitamin D,25 Hydroxy 41.7 ng/mL
[2021-07-24 13:24] LABS: ALB/GLOB Ratio 0.9 RATIO (0.9-2.4); AST(SGOT) 15 U/L (15-37); Alanine Aminotransfer ALT/SGPT 17 U/L (13-56); Albumin, Serum 3.3 g/dL (3.2-5.0); Alkaline Phosphatase 82 U/L (45-117); Anion Gap 6 (5-15); BUN 20 mg/dL (7-18); BUN/Creat Ratio 22.6 RATIO (10-20); Calcium,Total 8.7 mg/dL (8.5-10.1); Chloride 108 mmol/L (98-107); Creatinine, Serum 0.89 mg/dL (0.55-1.02); EST Glomerular Filtration Rate 65 mL/min (>60); Est Glom Filt Rate - Afr Amer 79 mL/min (>60); Globulin 3.8 g/dL (2.2-4.2); Glucose 93 mg/dL (74-106); Potassium 4.6 mmol/L (3.5-5.1); Protein, Total 7.1 g/dL (6.4-8.2); Sodium Level 139 mmol/L (136-145); Thyroid Stim Hormone (TSH) 1.92 uIU/mL (0.358-3.74)
== END ==
PROVIDERS: PCP Family Medicine Geriatric Medicine; Referring Provider Family Medicine Geriatric Medicine; Visit Provider Family Medicine Geriatric Medicine
DX: R53.83 Other fatigue (principal); E55.9 Vitamin D deficiency, unspecified; M79.602 Pain in left arm; M54.9 Dorsalgia, unspecified
CPT/HCPCS: 36415; 72070; 72114; 73060; 80053; 82306; 84443; 85025

== ENCOUNTER → 2021-08-13 07:41 | Outpatient (CLI) | payer MEDICARE, OTHER, SELFPAY ==
--- NOTE | 2021-08-13 08:37 | MRI_ITS ---
STUDY: MR Spine Lumbar W/O Contrast 08/13/2021 5:21 PM REASON FOR EXAM: Female, 80 years old. BACK PAIN HX OF VERTEBRAL BODY FRACTURE, FALL TECHNIQUE: MR Spine Lumbar W/O Contrast Standardized fat and water weighted pulse sequences were obtained. COMPARISON: xr Jul 24 2021 12:55pm FINDINGS: T10 and T12 acute superior end plate compression fracture with increased STIR signal. T11-12. There is no significant spinal stenosis. There is a 2.7 mm retropulsed fragment into the spinal canal. Vertebral plasty changes at L4, L2, and L3. Normal lumbar lordosis. There is no substantial scoliosis. Normal conus medullaris that terminates at the L1. L1-2: Loss of intervertebral disc height. There is endplate spondylosis of the vertebral body. There is bilateral facet arthropathy. There is no neural foraminal stenosis. There is bilateral ligamentum flavum thickening. L2-3: Loss of intervertebral disc height. There is endplate spondylosis of the vertebral body. There is bilateral facet arthropathy. There is no neural foraminal stenosis. There is bilateral ligamentum flavum thickening. L3-4: Loss of intervertebral disc height. There is endplate spondylosis of the vertebral body. There is bilateral facet arthropathy. There is neural foraminal stenosis. Compression of exiting nerve roots. Discogenic endplate changes. L4-5: Loss of intervertebral disc height. There is endplate spondylosis of the vertebral body. There is bilateral facet arthropathy. There is right neural foraminal stenosis. Compression of exiting nerve roots. Discogenic endplate changes. L5-S1: Loss of intervertebral disc height. There is endplate spondylosis of the vertebral body. There is bilateral facet arthropathy. There is right neural foraminal stenosis. Compression of exiting nerve roots. There is bilateral ligamentum flavum thickening. Normal visualized sacral ala. Normal visualized paraspinous soft tissue structures. MRI/Spine Lumbar (Routine) IMPRESSION: Multilevel degenerative changes, as described above. T10 and T12 acute superior end plate compression fracture. Electronically Signed: Gunnar Kendrick MD at 17:32 EST , Service support ,
== END ==
PROVIDERS: PCP Family Medicine Geriatric Medicine; Referring Provider Nurse Practitioner Family; Visit Provider Nurse Practitioner Family
DX: M54.9 Dorsalgia, unspecified (principal); Z87.311 Personal history of (healed) other pathological fracture
CPT/HCPCS: 72148

== ENCOUNTER 2021-09-01 17:31 | Emergency (ER) | payer MEDICARE, OTHER, SELFPAY ==
[2021-09-01 17:32] VITALS: BP 154/87; PULSE 78; RESP 18; TEMP 36.9; O2SAT 92; BMI 24.0
--- NOTE | 2021-09-01 17:48 | CT_ITS ---
INDICATION: chest injury EXAMINATION: CT Chest W/O Contrast Injection TECHNIQUE: Helically acquired images were obtained of the chest without IV contrast. A radiation dose optimization technique was used for this scan. COMPARISON: 03/08/2021. FINDINGS: Lungs: Scattered subsegmental atelectasis. Stable scarring in the lingula. Mediastinum: The cardiomediastinal silhouette is not enlarged. No mediastinal, hilar or axillary adenopathy. Mild aortic arch and coronary artery calcifications. Pleura: Unremarkable Bones/Soft tissues: Acute minimally displaced fracture of the posterior right 11th rib. Multiple chronic fracture deformities of the right posterior lateral lower ribs. Worsening compression fractures of T8 and T12. Chronic compression fracture of T4. Diffuse degenerative changes of the spine. Upper abdomen: Large hiatal hernia. CT/Chest without Contrast IMPRESSION: Acute minimally displaced fracture of the posterior right 11th rib. Worsening compression fractures of T8 and T12. No pneumothorax. Stable scarring in the lingula. Electronically Signed: Jose Martin Medley MD at 18:30 EST Tel , Service support ,
--- NOTE | 2021-09-01 17:49 | EX.ED.DYSGE1 ---
HPI History of Present Illness Chief Complaint: Fall Informant: patient and spouse/S.O. Narrative Narrative: 81-year-old female multiple medical problems on [employer] states that today she fell off the toilet striking her chest on the ground. She denies any head or neck injury. No new back pain since the fall. No arm or leg symptoms. Patient notes pain in her chest. notes that she fell in July causing some back pain that she has been working through. There is been no hemoptysis. He notes some mild swelling over her chest wall. [facility] Medical History aquired autoimmune encephalopathy Arthritis Asthma Back pain Bladder disease Cancer Cardiology follow-up encounter Dementia Dementia Depression Difficulty swallowing DVT (deep venous thrombosis) Falls Falls frequently Gastric reflux h/o back surgery Health care maintenance Heart disease High cholesterol History of heart attack History of stress test Hx of echocardiogram Hypertension Low iron Non-smoker Partial complex seizures Restless legs Seizures Shortness of breath on exertion TIA (transient ischemic attack) Walker as ambulation aid Home Medications lacosamide 100 mg tablet 100 mg PO BID 06/28/20 [History Last Taken 02/02/21 06:15] mirabegron 50 mg tablet,extended release 24 hr 100 mg PO QHS tablet 11/06/20 [History Last Taken Unknown] tolterodine 4 mg capsule,extended release 24 hr 4 mg PO DAILY cap 11/06/20 [History Last Taken 02/02/21 06:15] aspirin 81 mg PO DAILY 02/13/21 [History Last Taken Unknown] gabapentin 100 mg PO QHS 7 Days #7 cap 03/01/21 [Rx Last Taken Unknown] albuterol sulfate 2 puff INHALATION Q6H 03/08/21 [History Last Taken Unknown] atorvastatin 40 mg PO QHS 03/08/21 [History Last Taken Unknown] benzonatate 100 mg PO TID 03/08/21 [History Last Taken Unknown] codeine-guaifenesin 5 ml PO Q6H 03/08/21 [History Last Taken Unknown] donepezil 5 mg PO QHS 03/08/21 [History Last Taken Unknown] levofloxacin 250 mg PO DAILY 03/08/21 [History Last Taken Unknown] levothyroxine [Synthroid] 25 mcg PO DAILY 03/08/21 [History Last Taken Unknown] apixaban [Eliquis] 5 mg PO BID #74 tab 03/09/21 [Rx Last Taken Unknown] PEP device #1 ea 05/09/21 [Rx Last Taken Unknown] albuterol sulfate 2.5 mg CONTINUOUS NEBULIZATION ONCE #1 ml 05/09/21 [Clinic Last Taken Unknown] levocetirizine 5 mg tablet 5 mg PO DAILY 05/09/21 [History Last Taken Unknown] memantine 10 mg tablet 10 mg PO BID 05/09/21 [History Last Taken Unknown] pramipexole 0.25 mg tablet 0.25 mg PO BID tab 05/09/21 [History Last Taken Unknown] vortioxetine 5 mg tablet 5 mg PO DAILY 05/09/21 [History Last Taken Unknown] albuterol sulfate 2.5 mg INHALATION Q4H PRN #180 ml 08/09/21 [Rx Last Taken Unknown] hydrocodone-acetaminophen 1 tab PO Q6H PRN PRN 3 Days #12 tablet 09/01/21 [Rx Last Taken Unknown] Allergy/AdvReac Type Severity Reaction Status Date / Time doxycycline Allergy Mild Vomiting Verified 09/01/21 17:34 oxycodone [From Percocet] Allergy Mild Confusion Verified 09/01/21 17:34 acetaminophen Allergy Other Verified 09/01/21 17:34 [From Darvocet-N] lamotrigine [From Lamictal] Allergy Lip Verified 09/01/21 17:34 Swelling latex Allergy Rash Verified 09/01/21 17:34 moxifloxacin HCl Allergy Other Verified 09/01/21 17:34 [From Avelox] propoxyphene napsylate Allergy Other Verified 09/01/21 17:34 [From Darvocet-N] zolpidem tartrate AdvReac Other Verified 09/01/21 17:34 [From Ambien] Family History (Reviewed 08/09/21 @ 14:40 by Sandra Vincent [employer], [employer]-C) Mother CVA (cerebral vascular accident) Father Myocardial infarction Surgical History H/O heart artery stent H/O kyphoplasty History of appendectomy History of cardiac catheterization History of esophagogastroduodenoscopy (EGD) History of laryngoscopy History of lumpectomy of left breast Hx of cataract extraction Hx of colonoscopy Hx of ventral hernia repair Social History household members: spouse housing: house Smoking Status: Never smoker alcohol intake: current alcohol intake frequency: a few times a week do you feel safe at home: Yes ROS ROS ED Constitutional Constitutional ED: Denies chills, fever(s) or weight loss Eyes Eyes: Denies change in vision or diplopia ENT ENT ED: Denies ear pain, rhinorrhea or sore throat Cardiovascular Cardiovascular: Reports chest pain; Denies orthopnea, palpitations or racing heartbeat Respiratory/Chest Respiratory/Chest: Denies cough, dyspnea or orthopnea Gastrointestinal Gastrointestinal: Denies abdominal pain, diarrhea, nausea or vomiting Genitourinary Genitourinary ED: Denies dysuria, hematuria or urinary frequency Musculoskeletal Musculoskeletal: Reports back pain; Denies arthralgias or myalgias Integumentary Denies abscess or rash Neurologic Neurologic: Denies headache(s) or weakness Psychiatric Psychiatric: Denies anxiety, depression, suicidal ideation or suicidal thoughts Endocrine Endocrinology: Denies polydipsia, polyphagia or polyuria Allergic/Immunologic Allergic/Immunologic ED: Denies mouth swelling, tongue swelling or urticaria EXAM Physical Exam Const Vital Signs: 09/01/21 17:32 09/01/21 17:36 Temperature 98.5 F Temperature Source Temporal Pulse Rate 78 Respiratory Rate 18 Respiratory Effort Normal Non-Labored Respiratory Depth Normal Respiratory Pattern Normal Blood Pressure 154/87 H Blood Pressure Mean 109 Pulse Ox 92 Oxygen Delivery Method Room Air Positive well nourished, well developed and obese General Appearance ED: well developed Nutritional Appearance: obese HEENT Reports normocephalic, head/scalp atraumatic, TM's clear and moist mucous membranes HEENT Narrative: No dental trauma noted. Midface is stable. No malocclusion. Negative for trauma Tympanic Membrane ED: Yes TM's clear Eyes PERRL and EOMs intact bilaterally Eyes Narrative: No subconjunctival hemorrhage Neck no lymphadenopathy, supple and no JVD Chest Wall Chest Narrative: Patient has diffuse tenderness over her anterior chest wall Resp normal respiratory effort and clear to auscultation bilaterally Cardio regular rate, regular rhythm and no murmurs GI normal to inspection, nondistended, normoactive bowel sounds and non-tender Palpation: soft Back/Spine no CVA tenderness and normal ROM Extremity normal to inspection General Extremety ED: Negative for edema General Extremity: Negative for edema Neuro oriented x3 and CN's II-XII intact bilaterally Sensorium / Orientation: alert Motor Exam: strength 5/5 throughout Psych mental status grossly normal Mood & Affect: Negative for depressed or tearful Skin no rashes or lesions noted and no wounds MDM MDM MDM Narrative Medical decision making narrative: CT of the chest was obtained without contrast. This demonstrated worsening compression fractures in the thoracic spine which were noted on MRI 13 August. He is being read as an acutely minimally displaced fracture of the posterior right 11th rib. I went back reexamine the patient she does not complain of any tenderness in this area. The patient received a dose of Toradol for pain. She is requesting pain medication for at home. tells me that narcotics seem to make her confusion worse but he needs to have something to help her tonight. I can write for a few [place]. Radiography Diagnostic Testing: Clinical Impression(s) from Imaging Studies Chest CT 09/01/21 17:48 IMPRESSION: Acute minimally displaced fracture of the posterior right 11th rib. Worsening compression fractures of T8 and T12. No pneumothorax. Stable scarring in the lingula. Electronically Signed: Jose Martin Medley MD at 18:30 EST Tel , Service support , Discharge Plan Triage Chief Complaint: Fall ED Provider: Moody Emery Dx/Rx/DC Orders Clinical Impression: Chest wall contusion Instructions: ED Chest Wall Contusion Prescriptions: New hydrocodone-acetaminophen [hydrocodone-acetaminophen] 1 TABLET tablet 1 tab PO Q6H PRN PRN (Reason: Pain) 3 Days Qty: 12 RF: 0 No Action Vimpat 100 mg tablet 100 mg PO BID RF: 0 Myrbetriq 50 mg tablet extended release 24 hr 100 mg PO QHS RF: 0 tolterodine [Detrol LA] 4 mg capsule,extended release 24hr 4 mg PO DAILY RF: 0 albuterol sulfate 2.5 mg /3 mL (0.083 %) solution for nebulization 2.5 mg continuous nebulization ONCE Qty: 1 RF: 0 Trintellix 5 mg tablet 5 mg PO DAILY RF: 0 pramipexole [Mirapex] 0.25 mg tablet 0.25 mg PO BID RF: 0 memantine 10 mg tablet 10 mg PO BID RF: 0 levocetirizine [Xyzal] 5 mg tablet 5 mg PO DAILY RF: 0 (DME) PEP device See Rx Instructions .ROUTE .MEDSUPPLY Qty: 1 RF: 0 albuterol sulfate 2.5 mg /3 mL (0.083 %) solution for nebulization 2.5 mg inhalation Q4H PRN (Reason: Sob &/Or Wheezing) Qty: 180 RF: 3 aspirin 81 mg tablet,delayed release (DR/EC) 81 mg PO DAILY RF: 0 gabapentin 100 mg Capsule 100 mg PO QHS 7 Days Qty: 7 RF: 0 atorvastatin 40 mg tablet 40 mg PO QHS RF: 0 donepezil 5 mg Tablet 5 mg PO QHS RF: 0 levofloxacin 250 mg Tablet 250 mg PO DAILY RF: 0 levothyroxine [Synthroid] 25 mcg Tablet 25 mcg PO DAILY RF: 0 benzonatate 100 mg capsule 100 mg PO TID RF: 0 codeine-guaifenesin 10-100 mg/5 mL liquid 5 ml PO Q6H RF: 0 albuterol sulfate 90 mcg/actuation HFA aerosol inhaler 2 puff INHALATION Q6H RF: 0 Eliquis 5 mg tablet 5 mg PO BID Qty: 74 RF: 0 Primary Care Provider: Arun Ramos Chi Referrals: Arun Ramos Chi, MD [Primary Care Provider] - 3-5 Days Disposition Disposition: Home, Self Care
[2021-09-01] MEDS: Ketorolac 15 MG/ML Vial IV (17:55)
[2021-09-01 18:54] VITALS: BP 156/85; PULSE 74; RESP 19; O2SAT 92
== END 2021-09-01 19:25 | disposition home or self-care (01) ==
PROVIDERS: Emergency Provider Emergency Medicine; PCP Family Medicine Geriatric Medicine; Visit Provider Emergency Medicine
DX: S20.219A Contusion of unspecified front wall of thorax, initial encounter (principal); F03.90 Unspecified dementia, unspecified severity, without behavioral disturbance, psychotic disturbance, mood disturbance, and anxiety; W18.12XA Fall from or off toilet with subsequent striking against object, initial encounter; Y93.89 Activity, other specified; Y99.8 Other external cause status; I10 Essential (primary) hypertension; M19.90 Unspecified osteoarthritis, unspecified site; K21.9 Gastro-esophageal reflux disease without esophagitis; I25.2 Old myocardial infarction; E78.00 Pure hypercholesterolemia, unspecified; F32.A Depression, unspecified; E66.9 Obesity, unspecified; Z68.24 Body mass index [BMI] 24.0-24.9, adult; R29.6 Repeated falls; Z95.5 Presence of coronary angioplasty implant and graft; Z79.01 Long term (current) use of anticoagulants; Z79.899 Other long term (current) drug therapy; Z86.73 Personal history of transient ischemic attack (TIA), and cerebral 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
CPT/HCPCS: 71250; 96374; 99285; A4216

== ENCOUNTER 2021-09-02 13:38 | Observation (INO) | payer MEDICARE, OTHER, SELFPAY ==
[2021-09-02] VITALS (8 sets, daily range): BP systolic 130–159; BP diastolic 80–96; PULSE 74–98; RESP 16–19; TEMP 36.5–37; O2SAT 88–94; BMI 29.2; BMI 27.3
--- NOTE | 2021-09-02 14:13 | CT_ITS ---
HISTORY: back pain, decreased urination, fall. TECHNIQUE: Helically acquired images were obtained of the abdomen and pelvis with IV contrast. A radiation dose optimization technique was used for this scan. IV Contrast dosage and agent: 100 mL Isovue-370. Oral contrast: None. # of images incl. paperwork: 457. COMPARISON: None. FINDINGS: Motion artifact lowers the sensitivity of examination LOWER CHEST: Linear calcification in the left breast. Calcified left lower granuloma. Bibasilar atelectasis. BOWEL: Moderate hiatal hernia. Bowel nondilated. Appendectomy. Moderate stool in the colon. Colonic diverticulosis without pericolonic inflammation. LIVER: Homogeneous. GALLBLADDER/BILIARY TREE: Gallbladder present. Mild central intrahepatic and extrahepatic biliary dilatation. SPLEEN: Homogeneous. PANCREAS: Atrophic with mild pancreatic ductal dilatation. KIDNEYS/ADRENAL GLANDS: Unremarkable. VESSELS: No abdominal aortic aneurysm. Mild atherosclerosis. PELVIC ORGANS: Absent uterus. No significant free fluid in the pelvis ABDOMINAL WALL: Small right inguinal hernia containing small bowel and mild free fluid. BONES: Chronic bilateral rib fractures. Superimposed mildly displaced acute right 11th rib fracture. Osteopenia. No acute fracture or dislocation identified in the pelvis or hips. Degenerative postoperative changes of the lumbar spine. Subacute mild T10 and T12 compression fractures. Chronic appearing T8 and T11 compression fractures. Chronic lumbar compression fractures with vertebroplasty of L2, L3, and L4. CT/Abdomen/Pelvis W IV Cont ONLY IMPRESSION: Motion artifact. Right inguinal hernia containing small bowel with mild free fluid in the hernia sac. Recommend correlation with focal symptoms to evaluate for strangulation. No evidence for bowel obstruction. Mild biliary ductal dilatation. Mild pancreatic duct dilatation. Consider MRCP or ERCP to evaluate for obstructing stone or other centrally obstructing lesion. Moderate hiatal hernia. Colonic diverticulosis without acute diverticulitis. Acute right 11th rib fracture. Subacute to chronic thoracolumbar compression fractures as above. Individualized dose optimization techniques were used for this CT. at 1635 Reported and signed by: Alem Cordero MD Electronically Signed: Alem Cordero MD at 16:34 EST Tel , Service support ,
--- NOTE | 2021-09-02 14:13 | CT_ITS ---
HISTORY:fall, back pain, decreased urination. TECHNIQUE: Helically acquired images were obtained of the lumbar spine. 2D reformats were reviewed. A radiation dose optimization technique was used for this scan. IV Contrast dosage and agent: 100 mL Isovue-370. # of images incl. paperwork: [phone]. COMPARISON: X-ray 07/24/2021, MR 08/13/2021. FINDINGS: VERTEBRAE:Chronic right 10th, 11th, and 12th rib fractures. Superimposed acute right 11th rib fracture with mild displacement. Chronic mild T11 compression fracture. Subacute mild T12 compression fracture. Vertebroplasty of chronic mild L2 compression fracture with retropulsion. Vertebroplasty of chronic mild L3 compression fracture. Vertebroplasty of L4. L3-4 and L4-5 decompressive laminectomies. Generalized osteopenia ALIGNMENT:Unchanged minimal retrolisthesis of L3-4 and anterolisthesis of L4-5. INTERVERTEBRAL DISCS: Multilevel degenerative changes with posterior disc bulge osteophyte complexes and facet arthropathy. L1-2: Mild central canal stenosis secondary to the retropulsion of the fracture. Mild bilateral foraminal narrowing. L2-3, L3-4, L4-5: Mild bilateral foraminal narrowing. L5-S1: Minimal narrowing of the thecal sac and bilateral foramina. SOFT TISSUES: Mild posterior subcutaneous edema. CT/Spine Lumbar WITH Contrast IMPRESSION: Acute right 11th rib fracture. Additional chronic right lower rib fractures. Chronic T11 compression fracture. Subacute T12 compression fracture. Chronic lumbar compression fractures with vertebroplasty. Degenerative disc disease and postoperative change as described above. Individualized dose optimization techniques were used for this CT. at 1625 Reported and signed by: Alem Cordero MD Electronically Signed: Alem Cordero MD at 16:24 EST Tel , Service support ,
[2021-09-02 15:02] LABS: Absolute Lymphocyte Count 1.26 X10^3/uL (0.83-4.51); Absolute Neutrophil Count 8.6 X10^3/uL (2.0-7.7); Basophil# 0.01 X10^3/uL; Basophil% 0.1 % (0-1); Eosinophil# 0.01 X10^3/uL; Eosinophils% 0.1 % (0-5); Hematocrit 41.5 % (37-47); Hemoglobin 13.9 g/dL (12.0-15.0); Lymphocyte # 1.26 X10^3/ul (0.83-4.51); Mean Corp Hgb Conc 33.5 g/dL (32-36); Mean Corpuscular Hgb 30.5 pg (27.0-32.0); Mean Corpuscular Volume 91.2 fL (81-99); Mean Platelet Vol. 9.8 fl (6.2-12.0); Monocyte# 0.55 X10^3/uL; Monocyte% 5.2 % (0-10); NRBC Flagged by Analyzer 0 % (0-5); Neutrophil # 8.61 X10^3/uL (2.7-7.7); Neutrophil % 81.9 % (47-70); Platelet Count 243 K/mm3 (150-450); RBC Distribution Width SD 42.9 fl (35.1-43.9); Red Blood Count 4.55 M/mm3 (4.2-5.4); White Blood Count 10.5 K/mm3 (4.4-11.0)
--- NOTE | 2021-09-02 15:02 | ED.RN ---
Pt had full depends adult diaper when this nurse went to straight cath patient. Little sample obtained from straight cath specimen
--- NOTE | 2021-09-02 15:04 | EDS_ITS ---
HPI History of Present Illness Chief Complaint: Complaint Informant: patient and spouse/S.O. Onset/Context/Timing Onset: Yesterday Narrative Narrative: Patient presents via EMS secondary to concern for urinary retention. Patient is not very mobile at baseline and states he helps her transfer but she really does not walk. She does have chronic back pain and has had injections as recently as [address] Logan. Patient fell from the commode yesterday striking her chest wall. She was seen in the ER yesterday and had a chest CT performed. She was sent home with [place] to help control pain. states that she has not urinated in the last 24 hours. He has had more trouble transferring her as well as she is having difficulty bearing weight on her legs. [facility] Medical History aquired autoimmune encephalopathy Arthritis Asthma Back pain Bladder disease Cancer Cardiology follow-up encounter Dementia Dementia Depression Difficulty swallowing DVT (deep venous thrombosis) Falls Falls frequently Gastric reflux h/o back surgery Health care maintenance Heart disease High cholesterol History of heart attack History of stress test Hx of echocardiogram Hypertension Low iron Non-smoker Partial complex seizures Restless legs Seizures Shortness of breath on exertion TIA (transient ischemic attack) Walker as ambulation aid Home Medications lacosamide 100 mg tablet 100 mg PO BID 06/28/20 [History Last Taken 02/02/21 06:15] mirabegron 50 mg tablet,extended release 24 hr 100 mg PO QHS tablet 11/06/20 [History Last Taken Unknown] tolterodine 4 mg capsule,extended release 24 hr 4 mg PO DAILY cap 11/06/20 [History Last Taken 02/02/21 06:15] aspirin 81 mg PO DAILY 02/13/21 [History Last Taken Unknown] gabapentin 100 mg PO QHS 7 Days #7 cap 03/01/21 [Rx Last Taken Unknown] albuterol sulfate 2 puff INHALATION Q6H 03/08/21 [History Last Taken Unknown] atorvastatin 40 mg PO QHS 03/08/21 [History Last Taken Unknown] benzonatate 100 mg PO TID 03/08/21 [History Last Taken Unknown] codeine-guaifenesin 5 ml PO Q6H 03/08/21 [History Last Taken Unknown] donepezil 5 mg PO QHS 03/08/21 [History Last Taken Unknown] levofloxacin 250 mg PO DAILY 03/08/21 [History Last Taken Unknown] levothyroxine [Synthroid] 25 mcg PO DAILY 03/08/21 [History Last Taken Unknown] apixaban [Eliquis] 5 mg PO BID #74 tab 03/09/21 [Rx Last Taken Unknown] PEP device #1 ea 05/09/21 [Rx Last Taken Unknown] albuterol sulfate 2.5 mg CONTINUOUS NEBULIZATION ONCE #1 ml 05/09/21 [Clinic Last Taken Unknown] levocetirizine 5 mg tablet 5 mg PO DAILY 05/09/21 [History Last Taken Unknown] memantine 10 mg tablet 10 mg PO BID 05/09/21 [History Last Taken Unknown] pramipexole 0.25 mg tablet 0.25 mg PO BID tab 05/09/21 [History Last Taken Unknown] vortioxetine 5 mg tablet 5 mg PO DAILY 05/09/21 [History Last Taken Unknown] albuterol sulfate 2.5 mg INHALATION Q4H PRN #180 ml 08/09/21 [Rx Last Taken Unknown] hydrocodone-acetaminophen 1 tab PO Q6H PRN PRN 3 Days #12 tablet 09/01/21 [Rx Last Taken Unknown] Allergy/AdvReac Type Severity Reaction Status Date / Time doxycycline Allergy Mild Vomiting Verified 09/01/21 17:34 oxycodone [From Percocet] Allergy Mild Confusion Verified 09/01/21 17:34 acetaminophen Allergy Other Verified 09/01/21 17:34 [From Darvocet-N] lamotrigine [From Lamictal] Allergy Lip Verified 09/01/21 17:34 Swelling latex Allergy Rash Verified 09/01/21 17:34 moxifloxacin HCl Allergy Other Verified 09/01/21 17:34 [From Avelox] propoxyphene napsylate Allergy Other Verified 09/01/21 17:34 [From Darvocet-N] zolpidem tartrate AdvReac Other Verified 09/01/21 17:34 [From Ambien] Family History Mother CVA (cerebral vascular accident) Father Myocardial infarction Surgical History H/O heart artery stent H/O kyphoplasty History of appendectomy History of cardiac catheterization History of esophagogastroduodenoscopy (EGD) History of laryngoscopy History of lumpectomy of left breast Hx of cataract extraction Hx of colonoscopy Hx of ventral hernia repair Social History household members: spouse housing: house Smoking Status: Never smoker alcohol intake: current alcohol intake frequency: a few times a week do you feel safe at home: Yes ROS ROS ED Constitutional Constitutional ED: Denies chills or fever(s) Eyes Eyes: Denies change in vision ENT ENT ED: Denies sore throat Cardiovascular Cardiovascular: Denies chest pain Respiratory/Chest Respiratory/Chest: Denies cough or dyspnea Gastrointestinal Gastrointestinal: Denies abdominal pain, diarrhea, nausea or vomiting Genitourinary Genitourinary ED: Reports other Details: Decreased urinary output ; Denies dysuria Musculoskeletal Musculoskeletal: Reports back pain Integumentary Denies rash Neurologic Neurologic: Reports weakness; Denies headache(s) Allergic/Immunologic Allergic/Immunologic ED: Denies urticaria EXAM Physical Exam Const Vital Signs: 09/02/21 13:53 09/02/21 13:55 09/02/21 14:55 Temperature 97.7 F L 97.7 F L 97.8 F Temperature Source Temporal Temporal Temporal Pulse Rate 90 90 90 Respiratory Rate 19 H 19 H 18 Blood Pressure 159/96 H 159/96 H 130/84 H Blood Pressure Mean 117 117 99 Pulse Ox 91 91 91 Oxygen Delivery Method Room Air Room Air Room Air Oxygen Flow Rate (L/min) 09/02/21 16:35 09/02/21 16:39 Temperature Temperature Source Pulse Rate 80 80 Respiratory Rate 16 16 Blood Pressure 140/80 H 140/80 H Blood Pressure Mean 100 100 Pulse Ox 88 91 Oxygen Delivery Method Room Air Nasal Cannula Oxygen Flow Rate (L/min) 2 Positive well nourished and well developed General Appearance ED: well developed HEENT Reports moist mucous membranes Eyes PERRL and EOMs intact bilaterally Neck supple Chest Wall inspection of chest normal and palpation of chest normal Resp normal respiratory effort and clear to auscultation bilaterally Cardio regular rate and regular rhythm GI non-tender Palpation: soft Neuro Neuro Narrative: Chronic lower extremity weakness. No focal new deficits per . Sensorium / Orientation: alert Skin no rashes or lesions noted MDM MDM MDM Narrative Medical decision making narrative: Lab work, urinalysis, CT scan of the abdomen and pelvis as well as lumbar spine obtained. I did do a bedside ultrasound. Patient did have some urine noted in her bladder but certainly did not appear to be a significant amount. Lab Data Attestation: I reviewed the patient's lab results. Labs: Laboratory Results - last 24 hr 09/02/21 09/02/21 09/02/21 14:35 14:35 14:35 WBC 10.5 RBC 4.55 Hgb 13.9 Hct 41.5 MCV 91.2 MCH 30.5 MCHC 33.5 RDW Std Deviation 42.9 RDW Coeff of Jorge 13.0 Plt Count 243 MPV 9.8 Immature Gran % (Auto) 0.700 Neut % (Auto) 81.9 H Lymph % (Auto) 12.0 L [place] % (Auto) 5.2 Eos % (Auto) 0.1 Baso % (Auto) 0.1 Absolute Neuts (auto) 8.6 H Absolute Lymphs (auto) 1.26 Nucleated RBC % 0 PT 14.0 INR 1.1 APTT 25.9 Sodium 139 Potassium 3.9 Chloride 104 Carbon Dioxide 26.0 Anion Gap 9 BUN 43 H Creatinine 0.88 Estim Creat Clear Calc 53.68 Est GFR (MDRD) Af Amer 79 Est GFR (MDRD) Non-Af 66 BUN/Creatinine Ratio 48.6 H Glucose 111 H Calcium 9.3 Urine Color Urine Clarity Urine pH Ur Specific [place] Urine Protein Urine Glucose (UA) Urine Ketones Urine Occult Blood Urine Nitrite Urine Bilirubin Urine Urobilinogen Ur Leukocyte Esterase Urine RBC Urine WBC Ur Squamous Epith Cells Ur Transition Epith Cell Ur Renal Epithelial Cell Calcium Oxalate Crystal Uric Acid Crystals Triple Phos Crystals Other Crystals Amorphous Sediment Urine Bacteria Hyaline Casts Fine Granular Casts Coarse Granular Casts Waxy Casts RBC Casts WBC Casts Urine Mucus Urine Trichomonas Urine Yeast 09/02/21 15:00 WBC RBC Hgb Hct MCV MCH MCHC RDW Std Deviation RDW Coeff of Jorge Plt Count MPV Immature Gran % (Auto) Neut % (Auto) Lymph % (Auto) [place] % (Auto) Eos % (Auto) Baso % (Auto) Absolute Neuts (auto) Absolute Lymphs (auto) Nucleated RBC % PT INR APTT Sodium Potassium Chloride Carbon Dioxide Anion Gap BUN Creatinine Estim Creat Clear Calc Est GFR (MDRD) Af Amer Est GFR (MDRD) Non-Af BUN/Creatinine Ratio Glucose Calcium Urine Color Yellow Urine Clarity Turbid Urine pH 5.0 Ur Specific [place] 1.025 Urine Protein 100 H Urine Glucose (UA) Normal Urine Ketones Negative Urine Occult Blood 150 H Urine Nitrite Negative Urine Bilirubin Negative Urine Urobilinogen Normal Ur Leukocyte Esterase 500 H Urine RBC Cancelled Urine WBC Cancelled Ur Squamous Epith Cells Cancelled Ur Transition Epith Cell Cancelled Ur Renal Epithelial Cell Cancelled Calcium Oxalate Crystal Cancelled Uric Acid Crystals Cancelled Triple Phos Crystals Cancelled Other Crystals Cancelled Amorphous Sediment Cancelled Urine Bacteria Cancelled Hyaline Casts Cancelled Fine Granular Casts Cancelled Coarse Granular Casts Cancelled Waxy Casts Cancelled RBC Casts Cancelled WBC Casts Cancelled Urine Mucus Cancelled Urine Trichomonas Cancelled Urine Yeast Cancelled Radiography Diagnostic Testing: Clinical Impression(s) from Imaging Studies Abdomen/Pelvis CT 09/02/21 14:13 IMPRESSION: Motion artifact. Right inguinal hernia containing small bowel with mild free fluid in the hernia sac. Recommend correlation with focal symptoms to evaluate for strangulation. No evidence for bowel obstruction. Mild biliary ductal dilatation. Mild pancreatic duct dilatation. Consider MRCP or ERCP to evaluate for obstructing stone or other centrally obstructing lesion. Moderate hiatal hernia. Colonic diverticulosis without acute diverticulitis. Acute right 11th rib fracture. Subacute to chronic thoracolumbar compression fractures as above. Individualized dose optimization techniques were used for this CT. at 1635 Reported and signed by: Alem Cordero MD Electronically Signed: Alem Cordero MD at 16:34 EST Tel , Service support , Lumbar Spine CT 09/02/21 14:13 IMPRESSION: Acute right 11th rib fracture. Additional chronic right lower rib fractures. Chronic T11 compression fracture. Subacute T12 compression fracture. Chronic lumbar compression fractures with vertebroplasty. Degenerative disc disease and postoperative change as described above. Individualized dose optimization techniques were used for this CT. at 1625 Reported and signed by: Alem Cordero MD Electronically Signed: Alem Cordero MD at 16:24 EST Tel , Service support , Treatment and Re-Evaluation Comments:: Patient's lab work is unremarkable. Renal function is normal. When the nurse went to straight cath the patient she had saturated her depends. Only a small amount was obtained on the straight cath and a macroscopic urine was only able to be done. This does appear to show infection. Patient be given a dose of Keflex. CT scan of the abdomen and pelvis as well as the lumbar spine are obtained. Multiple chronic changes are noted. There is an acute right 11th rib fracture that was noted on yesterday's CT of chest. There are compression fractures of T11 and T12 that were present on her prior MRI from July. No hematomas noted or other acute fractures. Test results are discussed with the patient as well as at bedside. Primary concern is the patient has not been able to help with transfers and is concerned with being able to care for her at home. They are in agreement with observation overnight and evaluation by physical therapy. Discharge Plan Triage Chief Complaint: Complaint ED Provider: Kinza Laughlin Dx/Rx/DC Orders Clinical Impression: Weakness, Fall, UTI (urinary tract infection) Prescriptions: No Action Vimpat 100 mg tablet 100 mg PO BID RF: 0 Myrbetriq 50 mg tablet extended release 24 hr 100 mg PO QHS RF: 0 tolterodine [Detrol LA] 4 mg capsule,extended release 24hr 4 mg PO DAILY RF: 0 albuterol sulfate 2.5 mg /3 mL (0.083 %) solution for nebulization 2.5 mg continuous nebulization ONCE Qty: 1 RF: 0 Trintellix 5 mg tablet 5 mg PO DAILY RF: 0 pramipexole [Mirapex] 0.25 mg tablet 0.25 mg PO BID RF: 0 memantine 10 mg tablet 10 mg PO BID RF: 0 levocetirizine [Xyzal] 5 mg tablet 5 mg PO DAILY RF: 0 (DME) PEP device See Rx Instructions .ROUTE .MEDSUPPLY Qty: 1 RF: 0 albuterol sulfate 2.5 mg /3 mL (0.083 %) solution for nebulization 2.5 mg inhalation Q4H PRN (Reason: Sob &/Or Wheezing) Qty: 180 RF: 3 aspirin 81 mg tablet,delayed release (DR/EC) 81 mg PO DAILY RF: 0 gabapentin 100 mg Capsule 100 mg PO QHS 7 Days Qty: 7 RF: 0 atorvastatin 40 mg tablet 40 mg PO QHS RF: 0 donepezil 5 mg Tablet 5 mg PO QHS RF: 0 levofloxacin 250 mg Tablet 250 mg PO DAILY RF: 0 levothyroxine [Synthroid] 25 mcg Tablet 25 mcg PO DAILY RF: 0 benzonatate 100 mg capsule 100 mg PO TID RF: 0 codeine-guaifenesin 10-100 mg/5 mL liquid 5 ml PO Q6H RF: 0 albuterol sulfate 90 mcg/actuation HFA aerosol inhaler 2 puff INHALATION Q6H RF: 0 Eliquis 5 mg tablet 5 mg PO BID Qty: 74 RF: 0 hydrocodone-acetaminophen [hydrocodone-acetaminophen] 1 TABLET tablet 1 tab PO Q6H PRN PRN (Reason: Pain) 3 Days Qty: 12 RF: 0 Primary Care Provider: Arun Ramos Chi Referrals: Arun Ramos Chi, MD [Primary Care Provider] - Disposition Disposition: Acute Care Hospital [facility]
[2021-09-02 15:16] LABS: Anion Gap 9 (5-15); BUN 43 mg/dL (7-18); BUN/Creat Ratio 48.6 RATIO (10-20); Calcium,Total 9.3 mg/dL (8.5-10.1); Chloride 104 mmol/L (98-107); Creatinine, Serum 0.88 mg/dL (0.55-1.02); EST Glomerular Filtration Rate 66 mL/min (>60); Est Glom Filt Rate - Afr Amer 79 mL/min (>60); Estimated Creatinine Clearance 53.68 ml/min; Glucose 111 mg/dL (74-106); Potassium 3.9 mmol/L (3.5-5.1); Sodium Level 139 mmol/L (136-145)
[2021-09-02 15:16] LABS: Color, Urine Yellow (Yellow); Glucose, Dipstick Normal (Normal); Ketone-Dipstick Negative (Negative); Leukocyte Esterase-Dipstick 500 /ul (Negative); Nitrite-Dipstick Negative (Negative); Occult Blood-Urine 150 /ul (Negative); Protein-Dipstick 100 mg/dl (Negative); Specific Gravity, Urine 1.025 (1.002-1.030); Urine Bilirubin Dipstick Negative (Negative); Urine Clarity Turbid (Clear); Urine Urobilinogen Normal (Normal)
[2021-09-02 15:18] LABS: International Normalized Ratio 1.1
[2021-09-02 15:19] LABS: Partial Thromboplast Time 25.9 Seconds (24.1-36.2)
--- NOTE | 2021-09-02 17:05 | HP.PCM.HOS_ITS ---
HPI - General General Date of Admission: 09/02/21 Date of Service: 09/02/21 Chief Complaint: Frequent falls HPI Narrative SHELDON ALAN, is a 81 F who presents who presented with frequent falls. Patient had apparently been seen in the emergency department a day prior to admission with a fall. Imaging studies obtained at that time demonstrated acute minimally displaced fracture of the posterior right 11th rib as well as worsening compression fractures involving T8-12. Patient was discharged home however brought patient to the ED the following day with progressive generalized weakness and inability to transfer the patient. Urinalysis obtained also came back abnormal consistent with cystitis. Started on antibiotics ad mitted to regular nursing floor for further management [facility] Medical History aquired autoimmune encephalopathy Arthritis Asthma Back pain Bladder disease Cancer Cardiology follow-up encounter Dementia Dementia Depression Difficulty swallowing DVT (deep venous thrombosis) Falls Falls frequently Gastric reflux h/o back surgery Health care maintenance Heart disease High cholesterol History of heart attack History of stress test Hx of echocardiogram Hypertension Low iron Non-smoker Partial complex seizures Restless legs Seizures Shortness of breath on exertion TIA (transient ischemic attack) Walker as ambulation aid no medical history Home Medications lacosamide 100 mg tablet 100 mg PO BID 06/28/20 [History Last Taken 02/02/21 06:15] mirabegron 50 mg tablet,extended release 24 hr 100 mg PO QHS tablet 11/06/20 [History Last Taken Unknown] tolterodine 4 mg capsule,extended release 24 hr 4 mg PO DAILY cap 11/06/20 [History Last Taken 02/02/21 06:15] aspirin 81 mg PO DAILY 02/13/21 [History Last Taken Unknown] gabapentin 100 mg PO QHS 7 Days #7 cap 03/01/21 [Rx Last Taken Unknown] albuterol sulfate 2 puff INHALATION Q6H 03/08/21 [History Last Taken Unknown] atorvastatin 40 mg PO QHS 03/08/21 [History Last Taken Unknown] benzonatate 100 mg PO TID 03/08/21 [History Last Taken Unknown] codeine-guaifenesin 5 ml PO Q6H 03/08/21 [History Last Taken Unknown] donepezil 5 mg PO QHS 03/08/21 [History Last Taken Unknown] levofloxacin 250 mg PO DAILY 03/08/21 [History Last Taken Unknown] levothyroxine [Synthroid] 25 mcg PO DAILY 03/08/21 [History Last Taken Unknown] apixaban [Eliquis] 5 mg PO BID #74 tab 03/09/21 [Rx Last Taken Unknown] PEP device #1 ea 05/09/21 [Rx Last Taken Unknown] albuterol sulfate 2.5 mg CONTINUOUS NEBULIZATION ONCE #1 ml 05/09/21 [Clinic Last Taken Unknown] levocetirizine 5 mg tablet 5 mg PO DAILY 05/09/21 [History Last Taken Unknown] memantine 10 mg tablet 10 mg PO BID 05/09/21 [History Last Taken Unknown] pramipexole 0.25 mg tablet 0.25 mg PO BID tab 05/09/21 [History Last Taken Unknown] vortioxetine 5 mg tablet 5 mg PO DAILY 05/09/21 [History Last Taken Unknown] albuterol sulfate 2.5 mg INHALATION Q4H PRN #180 ml 08/09/21 [Rx Last Taken Unknown] hydrocodone-acetaminophen 1 tab PO Q6H PRN PRN 3 Days #12 tablet 09/01/21 [Rx Last Taken Unknown] Allergy/AdvReac Type Severity Reaction Status Date / Time doxycycline Allergy Mild Vomiting Verified 09/01/21 17:34 oxycodone [From Percocet] Allergy Mild Confusion Verified 09/01/21 17:34 acetaminophen Allergy Other Verified 09/01/21 17:34 [From Darvocet-N] lamotrigine [From Lamictal] Allergy Lip Verified 09/01/21 17:34 Swelling latex Allergy Rash Verified 09/01/21 17:34 moxifloxacin HCl Allergy Other Verified 09/01/21 17:34 [From Avelox] propoxyphene napsylate Allergy Other Verified 09/01/21 17:34 [From Darvocet-N] zolpidem tartrate AdvReac Other Verified 09/01/21 17:34 [From Ambien] Family History Mother CVA (cerebral vascular accident) Father Myocardial infarction Surgical History H/O heart artery stent H/O kyphoplasty History of appendectomy History of cardiac catheterization History of esophagogastroduodenoscopy (EGD) History of laryngoscopy History of lumpectomy of left breast Hx of cataract extraction Hx of colonoscopy Hx of ventral hernia repair Social History household members: spouse housing: house Smoking Status: Never smoker alcohol intake: current alcohol intake frequency: a few times a week do you feel safe at home: Yes ROS Review of Systems ROS Unobtainable: due to mental condition Vital Signs Vital Signs Vital Signs: 09/02/21 13:53 09/02/21 13:55 09/02/21 14:55 Temperature 97.7 F L 97.7 F L 97.8 F Temperature Source Temporal Temporal Temporal Pulse Rate 90 90 90 Respiratory Rate 19 H 19 H 18 Blood Pressure 159/96 H 159/96 H 130/84 H Blood Pressure Mean 117 117 99 Pulse Ox 91 91 91 Oxygen Delivery Method Room Air Room Air Room Air Oxygen Flow Rate (L/min) 09/02/21 16:35 09/02/21 16:39 Temperature Temperature Source Pulse Rate 80 80 Respiratory Rate 16 16 Blood Pressure 140/80 H 140/80 H Blood Pressure Mean 100 100 Pulse Ox 88 91 Oxygen Delivery Method Room Air Nasal Cannula Oxygen Flow Rate (L/min) 2 Weight Weight: 65.6 kg Body Mass Index (BMI) 29.2 Physical Exam Narrative GENERAL: Frail looking HEENT: Atraumatic; EYES; Anicteric, Normal Conjunctiva NECK; supple, normal thyroid, RESPIRATORY: Diminished to auscultation CARDIOVASCULAR: Regular S1 S2, GI: soft, normoactive bowel sounds, : No Renal angle tenderness; EXTREMITIES: No edema, no clubbing, MUSCULOSKELETAL: no muscle waisting NEURO: Awake; no lateralizing signs. SKIN: No Rash PSYCH; Flat affect Results Lab / Micro Data Result Diagrams: 09/02/21 14:35 09/02/21 14:35 Labs: Laboratory Results - last 24 hr 09/02/21 14:35: WBC 10.5, RBC 4.55, Hgb 13.9, Hct 41.5, MCV 91.2, MCH 30.5, MCHC 33.5, RDW Std Deviation 42.9, RDW Coeff of Jorge 13.0, Plt Count 243, MPV 9.8, Immature Gran % (Auto) 0.700, Neut % (Auto) 81.9 H, Lymph % (Auto) 12.0 L, [place] % (Auto) 5.2, Eos % (Auto) 0.1, Baso % (Auto) 0.1, Absolute Neuts (auto) 8.6 H, Absolute Lymphs (auto) 1.26, Nucleated RBC % 0 09/02/21 14:35: PT 14.0, INR 1.1, APTT 25.9 09/02/21 14:35: Sodium 139, Potassium 3.9, Chloride 104, Carbon Dioxide 26.0, Anion Gap 9, BUN 43 H, Creatinine 0.88, Estim Creat Clear Calc 53.68, Est GFR (MDRD) Af Amer 79, Est GFR (MDRD) Non-Af 66, BUN/Creatinine Ratio 48.6 H, Glucose 111 H, Calcium 9.3 09/02/21 15:00: Urine Color Yellow, Urine Clarity Turbid, Urine pH 5.0, Ur Specific [place] 1.025, Urine Protein 100 H, Urine Glucose (UA) Normal, Urine Ketones Negative, Urine Occult Blood 150 H, Urine Nitrite Negative, Urine Bilirubin Negative, Urine Urobilinogen Normal, Ur Leukocyte Esterase 500 H, Urine RBC Cancelled, Urine WBC Cancelled, Ur Squamous Epith Cells Cancelled, Ur Transition Epith Cell Cancelled, Ur Renal Epithelial Cell Cancelled, Calcium Oxalate Crystal Cancelled, Uric Acid Crystals Cancelled, Triple Phos Crystals Cancelled, Other Crystals Cancelled, Amorphous Sediment Cancelled, Urine Bacteria Cancelled, Hyaline Casts Cancelled, Fine Granular Casts Cancelled, Coarse Granular Casts Cancelled, Waxy Casts Cancelled, RBC Casts Cancelled, WBC Casts Cancelled, Urine Mucus Cancelled, Urine Trichomonas Cancelled, Urine Yeast Cancelled Radiology Impression Abdomen/Pelvis CT 09/02/21 14:13 IMPRESSION: Motion artifact. Right inguinal hernia containing small bowel with mild free fluid in the hernia sac. Recommend correlation with focal symptoms to evaluate for strangulation. No evidence for bowel obstruction. Mild biliary ductal dilatation. Mild pancreatic duct dilatation. Consider MRCP or ERCP to evaluate for obstructing stone or other centrally obstructing lesion. Moderate hiatal hernia. Colonic diverticulosis without acute diverticulitis. Acute right 11th rib fracture. Subacute to chronic thoracolumbar compression fractures as above. Individualized dose optimization techniques were used for this CT. at 1635 Reported and signed by: Alem Cordero MD Electronically Signed: Alem Cordero MD at 16:34 EST Tel , Service support , Lumbar Spine CT 09/02/21 14:13 IMPRESSION: Acute right 11th rib fracture. Additional chronic right lower rib fractures. Chronic T11 compression fracture. Subacute T12 compression fracture. Chronic lumbar compression fractures with vertebroplasty. Degenerative disc disease and postoperative change as described above. Individualized dose optimization techniques were used for this CT. at 1625 Reported and signed by: Alem Cordero MD Electronically Signed: Alem Cordero MD at 16:24 EST Tel , Service support , Assessment & Plan Assessment/Plan (1) Weakness: (2) Fall: (3) Chest wall contusion: (4) UTI (urinary tract infection): PLAN: Patient is a 81-year-old lady frail looking brought to the emergency department with frequent falls 1. Physical deconditioning - Requested for PT OT eval and social worker delinquency prevention to assist with discharge planning 2. Frequent falls ? Imaging studies obtained a day prior to patient's admission demonstrated acute minimally displaced fracture of the posterior right 11th rib as well as worsening compression fractures involving T8-12.. Per discussion with patient's who was in the room patient is quite sensitive to narcotics and will therefore use that sparingly 3. Acute cystitis ? Started on Rocephin admitted to regular nursing floor for further management 4. History of pulmonary embolism ? Patient is on apixaban did continue 5. Dyslipidemia -Patient is on statin therapy, continued at home dose 6. Advanced dementia ? Patient is on both donezepil and memantine did continue 7. History of esophageal dysphagia ? With previous dilatation 8. Obstructive sleep apnea ? By history 9. Osteoporosis ? Patient was previously on denosumab currently not on her list of home medications 10. DVT prophylaxis patient is on apixaban Advance planning; did discuss with the patient's regarding advanced directives as well as CODE STATUS. Did explain the various scenarios involved ( FULL CODE, DNR CCA, DNR CCA with no intubation, and DNR CC and what each meant) patient's elected for patient to remain full code with CPR and intubation if warranted . Order was placed. Time spent on discussion 18 minutes. Charges/Coding Visit Charges OBSV E&M: 24749 Initial observation care L3 Procedures Hospitalists Procedures: 20451 Advncd Care Plan 30 Min
[2021-09-02] MEDS: Cephalexin 250 MG Capsule 500 MG PO (17:09)
[2021-09-02] MEDS: Ceftriaxone 1 GM/50 ML BAG IV (20:42)
[2021-09-02] MEDS: 0.9% Saline Lock 10 ML Syringe IV (20:42)
--- NOTE | 2021-09-02 22:04 | PCS.PANDOC ---
PANDEMIC DOCUMENTATION INITIATED: Date: 09/02/2021 Time: 1914
[2021-09-02] MEDS: Pramipexole Di-HCl 0.25 MG Tablet PO (22:32)
[2021-09-02] MEDS: Lacosamide 100 MG Tablet PO (22:32)
[2021-09-02] MEDS: Benzonatate 100 MG Capsule PO (22:32)
[2021-09-02] MEDS: Memantine Hydrochloride 10 MG Tablet PO (22:32)
[2021-09-02] MEDS: Mirabegron 50 MG TAB.ER.24H 100 MG PO (22:32)
[2021-09-02] MEDS: Gabapentin 100 MG Capsule PO (22:32)
[2021-09-02] MEDS: APIXABAN 5 MG TABLET PO (22:33)
[2021-09-02] MEDS: Donepezil HCl 5 MG Tablet PO (22:33)
[2021-09-02] MEDS: Atorvastatin Calcium 40 MG Tablet PO (22:33)
[2021-09-03 05:38] VITALS: BP 129/68; PULSE 78; RESP 18; TEMP 36.8; O2SAT 93
[2021-09-03] MEDS: Benzonatate 100 MG Capsule PO ×3 (05:40→20:37)
[2021-09-03] MEDS: Levothyroxine 25 MCG TABLET PO (05:40)
[2021-09-03] MEDS: Acetaminophen 325 MG Tablet 650 MG PO ×2 (05:53→11:53)
[2021-09-03 06:03] LABS: Absolute Lymphocyte Count 1.29 X10^3/uL (0.83-4.51); Absolute Neutrophil Count 6.6 X10^3/uL (2.0-7.7); Basophil# 0.01 X10^3/uL; Basophil% 0.1 % (0-1); Eosinophil# 0.02 X10^3/uL; Eosinophils% 0.2 % (0-5); Hematocrit 35.4 % (37-47); Hemoglobin 12.2 g/dL (12.0-15.0); Lymphocyte # 1.29 X10^3/ul (0.83-4.51); Lymphocyte % 15.4 % (19-41); Mean Corp Hgb Conc 34.5 g/dL (32-36); Mean Corpuscular Volume 89.8 fL (81-99); Mean Platelet Vol. 9.9 fl (6.2-12.0); Monocyte# 0.42 X10^3/uL; NRBC Flagged by Analyzer 0 % (0-5); Neutrophil # 6.62 X10^3/uL (2.7-7.7); Neutrophil % 78.8 % (47-70); Platelet Count 180 K/mm3 (150-450); RBC Distribution Width CV 12.7 % (11.6-14.6); Red Blood Count 3.94 M/mm3 (4.2-5.4); White Blood Count 8.4 K/mm3 (4.4-11.0)
[2021-09-03 06:33] LABS: Anion Gap 4 (5-15); BUN 29 mg/dL (7-18); BUN/Creat Ratio 44.4 RATIO (10-20); Calcium,Total 8.3 mg/dL (8.5-10.1); Chloride 107 mmol/L (98-107); Creatinine, Serum 0.65 mg/dL (0.55-1.02); EST Glomerular Filtration Rate 93 mL/min (>60); Est Glom Filt Rate - Afr Amer 113 mL/min (>60); Estimated Creatinine Clearance 44.29 ml/min; Glucose 111 mg/dL (74-106); Potassium 3.8 mmol/L (3.5-5.1); Sodium Level 137 mmol/L (136-145)
[2021-09-03 07:22] VITALS: O2SAT 93
--- NOTE | 2021-09-03 10:08 | PN.HOSP_ITS ---
Subjective Subjective Doing well today, denies any back pain. She has admitted for several falls and does have displaced fracture in her posterior right 11th rib as well as compression fractures in T8 and T12 Objective Data Objective Data Vital Signs: Vital Signs Temp Pulse Resp BP Pulse Ox 98.3 F 78 18 129/68 H 93 09/03/21 05:38 09/03/21 05:38 09/03/21 05:38 09/03/21 05:38 09/03/21 07:22 Oxygen Flow Rate (L/min) 2 Oxygen Delivery Method Room Air Weight: 135 lb 9.349 oz Body Mass Index (BMI) 27.3 Intake & Output: Intake and Output for Last 24 Hours 09/02/21 09/03/21 09/04/21 03:59 03:59 03:59 Intake Total 277.0 / 277.0 423 / 423 Output Total 300 / 300 750 / 750 Balance -23.0 / -23.0 -327 / -327 Lab / Micro Data Result Diagrams: 09/03/21 05:44 09/03/21 05:44 Labs: Laboratory Results - last 24 hr 09/02/21 14:35: WBC 10.5, RBC 4.55, Hgb 13.9, Hct 41.5, MCV 91.2, MCH 30.5, MCHC 33.5, RDW Std Deviation 42.9, RDW Coeff of Jorge 13.0, Plt Count 243, MPV 9.8, Immature Gran % (Auto) 0.700, Neut % (Auto) 81.9 H, Lymph % (Auto) 12.0 L, Cowley % (Auto) 5.2, Eos % (Auto) 0.1, Baso % (Auto) 0.1, Absolute Neuts (auto) 8.6 H, Absolute Lymphs (auto) 1.26, Nucleated RBC % 0 09/02/21 14:35: PT 14.0, INR 1.1, APTT 25.9 09/02/21 14:35: Sodium 139, Potassium 3.9, Chloride 104, Carbon Dioxide 26.0, Anion Gap 9, BUN 43 H, Creatinine 0.88, Estim Creat Clear Calc 53.68, Est GFR (MDRD) Af Amer 79, Est GFR (MDRD) Non-Af 66, BUN/Creatinine Ratio 48.6 H, Glucose 111 H, Calcium 9.3 09/02/21 15:00: Urine Color Yellow, Urine Clarity Turbid, Urine pH 5.0, Ur Specific [place] 1.025, Urine Protein 100 H, Urine Glucose (UA) Normal, Urine Ketones Negative, Urine Occult Blood 150 H, Urine Nitrite Negative, Urine Bilirubin Negative, Urine Urobilinogen Normal, Ur Leukocyte Esterase 500 H, Urine RBC Cancelled, Urine WBC Cancelled, Ur Squamous Epith Cells Cancelled, Ur Transition Epith Cell Cancelled, Ur Renal Epithelial Cell Cancelled, Calcium Oxalate Crystal Cancelled, Uric Acid Crystals Cancelled, Triple Phos Crystals Cancelled, Other Crystals Cancelled, Amorphous Sediment Cancelled, Urine Bacteria Cancelled, Hyaline Casts Cancelled, Fine Granular Casts Cancelled, Coarse Granular Casts Cancelled, Waxy Casts Cancelled, RBC Casts Cancelled, WBC Casts Cancelled, Urine Mucus Cancelled, Urine Trichomonas Cancelled, Urine Yeast Cancelled 09/03/21 05:44: WBC 8.4, RBC 3.94 L, Hgb 12.2, Hct 35.4 L, MCV 89.8, MCH 31.0, MCHC 34.5, RDW Std Deviation 42.0, RDW Coeff of Jorge 12.7, Plt Count 180, MPV 9.9, Immature Gran % (Auto) 0.500, Neut % (Auto) 78.8 H, Lymph % (Auto) 15.4 L, Cowley % (Auto) 5.0, Eos % (Auto) 0.2, Baso % (Auto) 0.1, Absolute Neuts (auto) 6.6, Absolute Lymphs (auto) 1.29, Nucleated RBC % 0 09/03/21 05:44: Sodium 137, Potassium 3.8, Chloride 107, Carbon Dioxide 26.0, Anion Gap 4 L, BUN 29 H, Creatinine 0.65, Estim Creat Clear Calc 44.29, Est GFR (MDRD) Af Amer 113, Est GFR (MDRD) Non-Af 93, BUN/Creatinine Ratio 44.4 H, Glucose 111 H, Calcium 8.3 L, Magnesium 2.0 Radiography Diagnostic Testing: Radiology Impression Abdomen/Pelvis CT 09/02/21 14:13 IMPRESSION: Motion artifact. Right inguinal hernia containing small bowel with mild free fluid in the hernia sac. Recommend correlation with focal symptoms to evaluate for strangulation. No evidence for bowel obstruction. Mild biliary ductal dilatation. Mild pancreatic duct dilatation. Consider MRCP or ERCP to evaluate for obstructing stone or other centrally obstructing lesion. Moderate hiatal hernia. Colonic diverticulosis without acute diverticulitis. Acute right 11th rib fracture. Subacute to chronic thoracolumbar compression fractures as above. Individualized dose optimization techniques were used for this CT. at 1635 Reported and signed by: Alem Cordero MD Electronically Signed: Alem Cordero MD at 16:34 EST Tel , Service support , Lumbar Spine CT 09/02/21 14:13 IMPRESSION: Acute right 11th rib fracture. Additional chronic right lower rib fractures. Chronic T11 compression fracture. Subacute T12 compression fracture. Chronic lumbar compression fractures with vertebroplasty. Degenerative disc disease and postoperative change as described above. Individualized dose optimization techniques were used for this CT. at 1625 Reported and signed by: Alem Cordero MD Electronically Signed: Alem Cordero MD at 16:24 EST Tel , Service support , Physical Exam Const alert and no apparent distress General Appearance: cooperative Orientation / Consciousness: oriented to person and oriented to place HEENT normocephalic and moist oral mucous membranes Eyes PERRL, EOMs intact bilaterally and conjunctivae normal Neck supple and no JVD Resp normal respiratory effort, no retractions, no use of accessory muscles and clear to auscultation bilaterally Auscultation: Negative for crackles, rales, rhonchi or wheezes Cardio regular rate, regular rhythm, S1 normal heart sound, S2 normal heart sound and no murmurs GI soft to palpation, non-tender and non-distended; Negative for hepatosplenomegaly Palpation: hernia other (Right inguinal hernia, nontender) Extremity no clubbing, cyanosis or edema Skin no rashes or lesions noted Neuro no focal motor deficits and no sensory deficits noted Psych affect normal Appearance: appropriate Assessment & Plan Assessment/Plan (1) Weakness: (2) Fall: (3) Chest wall contusion: (4) UTI (urinary tract infection): PLAN: 1. Physical deconditioning and frequent falls possibly due to acute cystitis - Requested for PT OT eval and director of social media marketing to assist with discharge planning ? Only had a limited UA however with 500 leukocyte esterase, no urine culture has been ordered so that will be added on today ? Continue with Rocephin ? PT/OT for evaluation for possible placement. She does state that if she needs rehab she is okay with going somewhere for rehab ? She is not complaining of any back pain over her T8-T12. She does not appear to have any difficulty with breathing. 2. History of pulmonary embolism ? Patient is on apixaban did continue 3. Dyslipidemia -Patient is on statin therapy, continued at home dose 4. Advanced dementia ? Patient is on both donezepil and memantine did continue 5. History of esophageal dysphagia ? With previous dilatation 6. Obstructive sleep apnea ? By history 7. Osteoporosis ? Patient was previously on denosumab currently not on her list of home medications DVT: Eliquis Charges/Coding Visit Charges OBSV E&M: 87287 Subsequent observation care L2
[2021-09-03] MEDS: Ceftriaxone 1 GM/50 ML BAG IV (10:28)
[2021-09-03] MEDS: Aspirin E.C. 81 MG Tablet PO (10:28)
[2021-09-03] MEDS: Tolterodine Tartrate 4 MG CAP.SA PO (10:28)
[2021-09-03] MEDS: Loratadine 10 MG Tablet PO (10:28)
[2021-09-03] MEDS: Pramipexole Di-HCl 0.25 MG Tablet PO ×2 (10:28→20:37)
[2021-09-03] MEDS: Memantine Hydrochloride 10 MG Tablet PO ×2 (10:28→20:37)
[2021-09-03] MEDS: APIXABAN 5 MG TABLET PO ×2 (10:29→20:37)
[2021-09-03] MEDS: HYDROcodone Bitartrate/Apap 5/325 Tablet PO ×2 (10:33→18:48)
--- NOTE | 2021-09-03 11:17 | CASEMGMT ---
Addendum entered by Krista Owen 09/03/21 14:25: Social Work Pt is not ready for discharge today, SW let Ya in TCU know. KEL[facility] [place] Original Note: Social Work SW met w/pt and in room in regard to prior level of functioning and anticipated discharge plan. answered all SW questions. PCP: Dr. Ramos Specialists: Thony--urology, Ten--pulmonology, Niko--neurology at [facility], Juan Daniel--ENT, Desmond--pain management Preferred Pharmacy: [facility] Insurance/Prescription Benefit: Medicare A/B, UMR, [facility] Living Will/POA: is POA as per . thought he brought the documents in, but they are not on file LNOK: Misael, Gerri Molina, sister Living arrangements: Pt lives home w/ in a one story home with no steps. helps with all ADLs and they also have 6 hours of aide services 6 days per week. drives pt to appointments. Pt is not walking much at home. DME/HHC/SNF: Pt has a walker, lift cahir, raised toilet seat, walk in tub, transport chair. Pt has had home health care in the past, pt was in TCU in January of 2021. SW discussed w/ plan from hospital. SW provided list of [place] [facility] facilities in pt's preferred geographic area, that takes pt's insurance, complete with quality and resource use data. Initially, states wants pt to return home with home health care. He was present when OT in room doing assessment, and states pt is moving about the same as she was at home. Upon further discussion, states he may be in agreement w/pt going somewhere for rehab for a week or two to gain strength prior to returning home. He would like to discuss w/pt and let SW know. needs to go to an appointment at 11:30 and will be back. He is agreeable to SW checking on bed availability in TCU. SW called TCU, they do have bed availability. Pt's then came out and said they are in agreement for TCU. SW explained they do have a bed and pt should be able to go today. Plan: TCU, likely later today. KEL[facility] [place]
[2021-09-03 11:40] VITALS: BP 114/87; PULSE 78; RESP 16; TEMP 36.4; O2SAT 94
[2021-09-03] MEDS: VORTIOXETINE HYDROBROMIDE 20 MG TABLET PO (11:56)
--- NOTE | 2021-09-03 16:04 | CASEMGMT ---
MAN CASE in to completed NEGRETE form with Misael as patient is confused at this time. RN EVIE explained NEGRETE form to , voiced understanding. signed NEGRETE form and filed in chart. provided copy of signed NEGRETE form. had no further questions or concerns at this time.
--- NOTE | 2021-09-03 16:30 | CHAPLAIN ---
Type of Pastoral Visit _x__ Initial Visit ___ Follow-up Visit ___ On-call Visit ___ General Patient Visit ___ Spiritual Assessment ___ Family Conference ___ Bereavement ___ Rapid Response ___ Code Blue ___ Other (describe below) Pastoral Care Referral From _x__ Patient ___ Family ___ Nurse ___ Physician ___ Handcrew Foreman ___ Fresh Meat Grader ___ Other (describe below) Sacrament/Intervention _x__ Active listening ___ Anointing ___ Denominational ___ Bereavement ___ Communion ___ Lilly exploration ___ ___ Life review _x__ Prayer ___ Reconciliation ___ Sacrament of Sick _x__ Supportive presence ___ Wedding ___ Other (describe below) Pastoral Comments
[2021-09-03 17:40] VITALS: BP 144/85; PULSE 81; RESP 16; TEMP 36.3; O2SAT 93
[2021-09-03 20:32] VITALS: BP 146/90; PULSE 80; RESP 18; TEMP 36.6; O2SAT 93
[2021-09-03] MEDS: Donepezil HCl 5 MG Tablet PO (20:36)
[2021-09-03] MEDS: Atorvastatin Calcium 40 MG Tablet PO (20:37)
[2021-09-03] MEDS: Gabapentin 100 MG Capsule PO (20:37)
[2021-09-03] MEDS: Mirabegron 50 MG TAB.ER.24H 100 MG PO (20:37)
[2021-09-03] MEDS: Lacosamide 100 MG Tablet PO (20:39)
[2021-09-04 02:30] VITALS: BP 141/95; PULSE 72; RESP 18; TEMP 36.5; O2SAT 93
[2021-09-04 04:35] LABS: Absolute Lymphocyte Count 1.36 X10^3/uL (0.83-4.51); Basophil# 0.02 X10^3/uL; Basophil% 0.2 % (0-1); Eosinophil# 0.03 X10^3/uL; Eosinophils% 0.3 % (0-5); Hematocrit 37.9 % (37-47); Hemoglobin 12.8 g/dL (12.0-15.0); Lymphocyte # 1.36 X10^3/ul (0.83-4.51); Lymphocyte % 15.2 % (19-41); Mean Corp Hgb Conc 33.8 g/dL (32-36); Mean Corpuscular Hgb 30.7 pg (27.0-32.0); Mean Corpuscular Volume 90.9 fL (81-99); Mean Platelet Vol. 9.9 fl (6.2-12.0); Monocyte# 0.47 X10^3/uL; Monocyte% 5.3 % (0-10); NRBC Flagged by Analyzer 0 % (0-5); Neutrophil # 7.02 X10^3/uL (2.7-7.7); Neutrophil % 78.7 % (47-70); Platelet Count 181 K/mm3 (150-450); RBC Distribution Width CV 12.8 % (11.6-14.6); RBC Distribution Width SD 42.4 fl (35.1-43.9); Red Blood Count 4.17 M/mm3 (4.2-5.4); White Blood Count 8.9 K/mm3 (4.4-11.0)
[2021-09-04 05:06] LABS: Anion Gap 6 (5-15); BUN 20 mg/dL (7-18); BUN/Creat Ratio 33.7 RATIO (10-20); Calcium,Total 8.1 mg/dL (8.5-10.1); Chloride 105 mmol/L (98-107); Creatinine, Serum 0.59 mg/dL (0.55-1.02); EST Glomerular Filtration Rate 104 mL/min (>60); Est Glom Filt Rate - Afr Amer 126 mL/min (>60); Estimated Creatinine Clearance 44.29 ml/min; Glucose 108 mg/dL (74-106); Potassium 3.7 mmol/L (3.5-5.1); Sodium Level 137 mmol/L (136-145)
[2021-09-04] MEDS: Acetaminophen 325 MG Tablet 650 MG PO (05:32)
[2021-09-04] MEDS: Benzonatate 100 MG Capsule PO (05:32)
[2021-09-04] MEDS: Levothyroxine 25 MCG TABLET PO (05:32)
[2021-09-04 07:21] VITALS: O2SAT 93
[2021-09-04 08:30] VITALS: BP 154/85; PULSE 79; RESP 18; TEMP 36.6; O2SAT 94
--- NOTE | 2021-09-04 09:20 | PCM.TXEXTCAR ---
Diet 09/02/21 16:55 Diet: Regular - General Food consistency:: Regular Liquid Consistency:: Regular/Thin Routine Orders/Code Status Routine Lab Work: CBC and BMP Code Status: Full Code Therapies Physical Therapy: Eval and Treat Occupational Therapy: Eval and Treat Problem/Diagnosis (1) Weakness: Status: Acute (2) Fall: Status: Acute (3) Chest wall contusion: Status: Acute (4) UTI (urinary tract infection): Status: Acute Allergies/Procedures Done in Hospital Allergies doxycycline Allergy (Mild, Verified 09/01/21 17:34) Vomiting oxycodone [From Percocet] Allergy (Mild, Verified 09/01/21 17:34) Confusion acetaminophen [From Darvocet-N] Allergy (Verified 09/01/21 17:34) Other lamotrigine [From Lamictal] Allergy (Verified 09/01/21 17:34) Lip Swelling latex Allergy (Verified 09/01/21 17:34) Rash moxifloxacin HCl [From Avelox] Allergy (Verified 09/01/21 17:34) Other propoxyphene napsylate [From Darvocet-N] Allergy (Verified 09/01/21 17:34) Other zolpidem tartrate [From Ambien] Adverse Reaction (Verified 09/01/21 17:34) Other Procedures: None Type of Care/Length of Stay Estimated LOS: Convalescent Care Less Than 30 days Type of Care Needed: Skilled Rehab Potential: Fair Prognosis: Fair Additional Orders/Day of Discharge Day of Discharge: 09/04/21 Discharge Plan Admission Admit Date/Time: 09/02/21 16:54 Attending Provider: Jean Claude Macedo Primary Care Provider: Arun Ramos Chi Discharge Orders/Prescriptions Prescriptions: New cefdinir 300 mg capsule 300 mg PO BID 3 Days Qty: 6 RF: 0 Continued Vimpat 100 mg tablet 100 mg PO BID RF: 0 Myrbetriq 50 mg tablet extended release 24 hr 100 mg PO QHS RF: 0 tolterodine [Detrol LA] 4 mg capsule,extended release 24hr 4 mg PO DAILY RF: 0 albuterol sulfate 2.5 mg /3 mL (0.083 %) solution for nebulization 2.5 mg continuous nebulization ONCE Qty: 1 RF: 0 Trintellix 5 mg tablet 20 mg PO DAILY RF: 0 pramipexole [Mirapex] 0.25 mg tablet 0.5 mg PO TID RF: 0 memantine 10 mg tablet 10 mg PO BID RF: 0 aspirin 81 mg tablet,delayed release (DR/EC) 81 mg PO DAILY RF: 0 gabapentin 100 mg Capsule 100 mg PO QHS 7 Days Qty: 7 RF: 0 atorvastatin 40 mg tablet 40 mg PO QHS RF: 0 levothyroxine [Synthroid] 25 mcg Tablet 25 mcg PO DAILY RF: 0 Eliquis 5 mg tablet 5 mg PO BID Qty: 74 RF: 0 hydrocodone-acetaminophen 1 TABLET tablet 1 tab PO Q6H PRN PRN (Reason: Pain) 3 Days Qty: 12 RF: 0 cranberry 500 mg Capsule 500 mg PO DAILY RF: 0 cholecalciferol (vitamin D3) [Vitamin D3] 25 mcg (1,000 unit) Capsule 25 mcg PO DAILY RF: 0 Probiotic Blend 2 billion cell-50 mg Capsule 1 cap PO DAILY RF: 0 d-mannose 500 mg Capsule 500 mg PO DAILY RF: 0 No Action (DME) PEP device See Rx Instructions .ROUTE .MEDSUPPLY Qty: 1 RF: 0 Referrals / Follow Up: Arun Ramos Chi, MD [Primary Care Provider] - Disposition Disposition (needs filled in before D/C Order can be placed): Intermediate Facility
--- NOTE | 2021-09-04 09:24 | PCM.DC.SUM ---
Providers Date of Admission: 09/02/21 Primary Care Physician: Dr. Arun Ramos MD Reason For Visit: FAILURE TO THRIVE Diagnosis Discharge Diagnosis (1) Weakness: Status: Acute Code(s): R53.1 - Weakness (2) Fall: Status: Acute Code(s): W19.XXXA - Unspecified fall, initial encounter (3) Chest wall contusion: Status: Acute Code(s): S20.219A - Contusion of unspecified front wall of thorax, initial encounter (4) UTI (urinary tract infection): Status: Acute Code(s): N39.0 - Urinary tract infection, site not specified Medications at Discharge Home Medications lacosamide 100 mg tablet 100 mg PO BID 06/28/20 mirabegron 50 mg tablet,extended release 24 hr 100 mg PO QHS tablet 11/06/20 tolterodine 4 mg capsule,extended release 24 hr 4 mg PO DAILY cap 11/06/20 aspirin 81 mg PO DAILY 02/13/21 gabapentin 100 mg PO QHS 7 Days #7 cap 03/01/21 atorvastatin 40 mg PO QHS 03/08/21 levothyroxine [Synthroid] 25 mcg PO DAILY 03/08/21 Eliquis 5 mg PO BID #74 tab 03/09/21 PEP device #1 ea 05/09/21 albuterol sulfate 2.5 mg CONTINUOUS NEBULIZATION ONCE #1 ml 05/09/21 memantine 10 mg tablet 10 mg PO BID 05/09/21 pramipexole 0.25 mg tablet 0.5 mg PO TID tab 05/09/21 vortioxetine 5 mg tablet 20 mg PO DAILY 05/09/21 hydrocodone-acetaminophen 1 tab PO Q6H PRN PRN 3 Days #12 tablet 09/01/21 Probiotic Blend 1 cap PO DAILY 09/02/21 cholecalciferol (vitamin D3) [Vitamin D3] 25 mcg PO DAILY 09/02/21 cranberry 500 mg PO DAILY 09/02/21 d-mannose 500 mg PO DAILY 09/02/21 cefdinir 300 mg PO BID 3 Days #6 cap 09/04/21 Hospital Course Operations None Procedures None Summary of Care Provided Minutes Spent on Discharge: 35 Hospital Course: Per HPI: SHELDON ALNA, is a 81 F who presents who presented with frequent falls. Patient had apparently been seen in the emergency department a day prior to admission with a fall. Imaging studies obtained at that time demonstrated acute minimally displaced fracture of the posterior right 11th rib as well as worsening compression fractures involving T8-12. Patient was discharged home however brought patient to the ED the following day with progressive generalized weakness and inability to transfer the patient. Urinalysis obtained also came back abnormal consistent with cystitis. Started on antibiotics admitted to regular nursing floor for further management Hospital Course: 1. Physical deconditioning and frequent falls possibly due to acute cystitis - Requested for PT OT eval and social problems specialist to assist with discharge planning ? Only had a limited UA however with 500 leukocyte esterase, no urine culture has been ordered so that will be added on today ? Continue with Rocephin ? PT/OT for evaluation for possible placement. She does state that if she needs rehab she is okay with going somewhere for rehab ? She is not complaining of any back pain over her T8-T12. She does not appear to have any difficulty with breathing. ? 09/04/2021: She is doing well today, she still has her confusion and dementia. She is okay with going to the custodial today and she did receive 2 doses of Rocephin, her urine cultures are pending I do anticipate her receiving her third dose today prior to discharge and would recommend cefdinir twice daily for a few days while in the transitional care unit. Will need to follow-up with her urine cultures as they have access to it in case and change antibiotics. 2. History of pulmonary embolism ? Patient is on apixaban did continue 3. Dyslipidemia -Patient is on statin therapy, continued at home dose 4. Advanced dementia ? Patient is on both donezepil and memantine did continue 5. History of esophageal dysphagia ? With previous dilatation 6. Obstructive sleep apnea ? By history 7. Osteoporosis ? Patient was previously on denosumab currently not on her list of home medications Physical Exam Narrative Const alert and no apparent distress General Appearance: cooperative Orientation / Consciousness: oriented to person HEENT normocephalic and moist oral mucous membranes Eyes PERRL, EOMs intact bilaterally and conjunctivae normal Neck supple and no JVD Resp normal respiratory effort, no retractions, no use of accessory muscles and clear to auscultation bilaterally Auscultation: Negative for crackles, rales, rhonchi or wheezes Cardio regular rate, regular rhythm, S1 normal heart sound, S2 normal heart sound and no murmurs GI soft to palpation, non-tender and non-distended; Negative for hepatosplenomegaly Palpation: hernia other (Right inguinal hernia, nontender) Extremity no clubbing, cyanosis or edema Skin no rashes or lesions noted Neuro no focal motor deficits and no sensory deficits noted Psych affect normal Appearance: appropriate Weight / BMI Weight Weight: 135 lb 9.349 oz Body Mass Index (BMI) 27.3 ABG / Lab / Microbiology Data Result Diagrams: 09/04/21 04:03 09/04/21 04:03 Laboratory: Laboratory Results - last 24 hr 09/04/21 04:03: WBC 8.9, RBC 4.17 L, Hgb 12.8, Hct 37.9, MCV 90.9, MCH 30.7, MCHC 33.8, RDW Std Deviation 42.4, RDW Coeff of Jorge 12.8, Plt Count 181, MPV 9.9, Immature Gran % (Auto) 0.300, Neut % (Auto) 78.7 H, Lymph % (Auto) 15.2 L, Wayne % (Auto) 5.3, Eos % (Auto) 0.3, Baso % (Auto) 0.2, Absolute Neuts (auto) 7.0, Absolute Lymphs (auto) 1.36, Nucleated RBC % 0 09/04/21 04:03: Sodium 137, Potassium 3.7, Chloride 105, Carbon Dioxide 26.0, Anion Gap 6, BUN 20 H, Creatinine 0.59, Estim Creat Clear Calc 44.29, Est GFR (MDRD) Af Amer 126, Est GFR (MDRD) Non-Af 104, BUN/Creatinine Ratio 33.7 H, Glucose 108 H, Calcium 8.1 L Microbiology: Microbiology 09/03/21 11:45 Nasal Secretion SARS-CoV-2 Antigen (Rapid) - Final Meaningful Use Info Meaningful Use Diagnoses (Choose all that apply): None applicable Discharge Plan Admission Admit Date/Time: 09/02/21 16:54 Attending Provider: Jean Claude Macedo Primary Care Provider: Arun Ramos Chi Discharge Orders/Prescriptions Prescriptions: New cefdinir 300 mg capsule 300 mg PO BID 3 Days Qty: 6 RF: 0 Continued Vimpat 100 mg tablet 100 mg PO BID RF: 0 Myrbetriq 50 mg tablet extended release 24 hr 100 mg PO QHS RF: 0 tolterodine [Detrol LA] 4 mg capsule,extended release 24hr 4 mg PO DAILY RF: 0 albuterol sulfate 2.5 mg /3 mL (0.083 %) solution for nebulization 2.5 mg continuous nebulization ONCE Qty: 1 RF: 0 Trintellix 5 mg tablet 20 mg PO DAILY RF: 0 pramipexole [Mirapex] 0.25 mg tablet 0.5 mg PO TID RF: 0 memantine 10 mg tablet 10 mg PO BID RF: 0 aspirin 81 mg tablet,delayed release (DR/EC) 81 mg PO DAILY RF: 0 gabapentin 100 mg Capsule 100 mg PO QHS 7 Days Qty: 7 RF: 0 atorvastatin 40 mg tablet 40 mg PO QHS RF: 0 levothyroxine [Synthroid] 25 mcg Tablet 25 mcg PO DAILY RF: 0 Eliquis 5 mg tablet 5 mg PO BID Qty: 74 RF: 0 hydrocodone-acetaminophen 1 TABLET tablet 1 tab PO Q6H PRN PRN (Reason: Pain) 3 Days Qty: 12 RF: 0 cranberry 500 mg Capsule 500 mg PO DAILY RF: 0 cholecalciferol (vitamin D3) [Vitamin D3] 25 mcg (1,000 unit) Capsule 25 mcg PO DAILY RF: 0 Probiotic Blend 2 billion cell-50 mg Capsule 1 cap PO DAILY RF: 0 d-mannose 500 mg Capsule 500 mg PO DAILY RF: 0 No Action (DME) PEP device See Rx Instructions .ROUTE .MEDSUPPLY Qty: 1 RF: 0 Referrals / Follow Up: Arun Ramos Chi, MD [Primary Care Provider] - Disposition Disposition (needs filled in before D/C Order can be placed): Residential Facility Charges/Coding Visit Charges OBSV E&M: 41231 Observation care discharge
[2021-09-04] MEDS: Ceftriaxone 1 GM/50 ML BAG IV (09:35)
[2021-09-04] MEDS: 0.9% Saline Lock 10 ML Syringe IV (09:39)
[2021-09-04] MEDS: APIXABAN 5 MG TABLET PO (09:40)
[2021-09-04] MEDS: Tolterodine Tartrate 4 MG CAP.SA PO (09:41)
[2021-09-04] MEDS: Pramipexole Di-HCl 0.25 MG Tablet PO (09:41)
[2021-09-04] MEDS: Aspirin E.C. 81 MG Tablet PO (09:41)
[2021-09-04] MEDS: VORTIOXETINE HYDROBROMIDE 20 MG TABLET PO (09:42)
[2021-09-04] MEDS: Loratadine 10 MG Tablet PO (09:42)
[2021-09-04] MEDS: Memantine Hydrochloride 10 MG Tablet PO (09:42)
[2021-09-04] MEDS: HYDROcodone Bitartrate/Apap 5/325 Tablet PO (09:46)
--- NOTE | 2021-09-04 10:12 | CASEMGMT ---
Addendum entered by Krista Owen 09/04/21 10:32: Social Work Pt's here, SW let him know pt is going to TCU today. was aware and agreeable. No further needs. Pt to TCU today. [facility] [place] Addendum entered by Krista Owen 09/04/21 10:13: SW also left a message for pt's at home to call this SW. [place] [place] Original Note: Social Work Pt is ready for discharge today to TCU. SW faxed over all discharge instructions. Ya in TCU aware pt can come today. SW called at home, line rings busy. YOANDY called pt's cell number, left a message to call SW. Pt to TCU today, skilled level of care, convalescent stay. KEL[facility] [place]
== END 2021-09-04 11:14 | disposition skilled nursing facility (03) ==
LOC: ED 16:52 → MS2 18:53
PROVIDERS: Admitting Provider Internal Medicine; Emergency Provider Emergency Medicine; PCP Family Medicine Geriatric Medicine; Visit Provider Family Medicine
DX: N30.00 Acute cystitis without hematuria (principal); F03.90 Unspecified dementia, unspecified severity, without behavioral disturbance, psychotic disturbance, mood disturbance, and anxiety; G40.209 Localization-related (focal) (partial) symptomatic epilepsy and epileptic syndromes with complex partial seizures, not intractable, without status epilepticus; G89.29 Other chronic pain; E78.5 Hyperlipidemia, unspecified; G47.33 Obstructive sleep apnea (adult) (pediatric); I10 Essential (primary) hypertension; Z79.82 Long term (current) use of aspirin; Z79.01 Long term (current) use of anticoagulants; Z79.899 Other long term (current) drug therapy; Z79.890 Hormone replacement therapy; J45.909 Unspecified asthma, uncomplicated; Z86.718 Personal history of other venous thrombosis and embolism; M19.90 Unspecified osteoarthritis, unspecified site; K21.9 Gastro-esophageal reflux disease without esophagitis; I25.2 Old myocardial infarction; S22.31XA Fracture of one rib, right side, initial encounter for closed fracture; Y93.9 Activity, unspecified; Y99.9 Unspecified external cause status; W19.XXXA Unspecified fall, initial encounter; Y92.9 Unspecified place or not applicable; M48.54XD Collapsed vertebra, not elsewhere classified, thoracic region, subsequent encounter for fracture with routine healing; Z86.711 Personal history of pulmonary embolism; R13.10 Dysphagia, unspecified; M81.0 Age-related osteoporosis without current pathological fracture; S20.20XA Contusion of thorax, unspecified, initial encounter
CPT/HCPCS: 36415; 72132; 74177; 80048; 81002; 83735; 85025; 85610; 85730; 87086; 87088; 87426; 96365; 96366; 97162; 97167; 99218; 99285; J7050; Q9967; A4216; G0378

== ENCOUNTER 2021-09-04 11:22 | Inpatient (IN) | payer MEDICARE, OTHER, SELFPAY ==
[2021-09-04 13:15] VITALS: BMI 27.0
[2021-09-04] MEDS: HYDROcodone Bitartrate/Apap 5/325 Tablet PO (14:29)
[2021-09-04] MEDS: Pramipexole Di-HCl 0.5 MG Tablet PO ×2 (14:56→21:11)
[2021-09-04 15:30] VITALS: O2SAT 93
[2021-09-04 16:27] VITALS: BP 120/80; PULSE 93; RESP 20; TEMP 36.4; O2SAT 94
[2021-09-04] MEDS: Memantine Hydrochloride 10 MG Tablet PO (18:13)
[2021-09-04] MEDS: APIXABAN 5 MG TABLET PO (18:13)
[2021-09-04] MEDS: Cefdinir 300 MG Capsule PO (18:14)
[2021-09-04] MEDS: Lacosamide 100 MG Tablet PO (18:17)
[2021-09-04] MEDS: oxyCODONE 5 MG Tablet PO (18:20)
--- NOTE | 2021-09-04 19:16 | NURSING ---
Per pt's she does not have allergy to Acetaminophen.
[2021-09-04 19:49] VITALS: PULSE 89; RESP 18; O2SAT 93
[2021-09-04] MEDS: Albuterol 2.5 MG/3 ML VIAL.NEB. INHALATION (19:49)
--- NOTE | 2021-09-04 19:52 | HP.PCM_ITS ---
HPI - General General Date of Admission: 09/04/21 HPI Narrative 09/02/2021 SHELDON ALAN, is a 81 Femal who presents to [facility] Emergency Department with urinary retention. Urinary retention, patient does not walk. Back pain, Dr. Bloom performed injections. Fell from toilet yesterday, rib fracture, 11th right. Unable to urinate for 24 hours. UA consistent with urinary tract infection, Keflex given. Unable to care for at home. 09/02/2021 Admit to Hospital. PT/OT for debility. Pain control. Rocephin IV for urinary tract infection. 09/03/2021 PT/OT for [facility]pc facility. Urine culture sent. 09/04/2021 Right posterior 11th rib fracture. Worsening compression fracture, T8-T12. No pain in these areas. Pain is sternal pain with movement, most likely costochondritis. 09/04/2021 Admit to TCU with debility, here for rehabilitation, strengthening, prior to discharge home with . [facility] Medical History aquired autoimmune encephalopathy Arthritis Asthma Back pain Bladder disease Cancer Cardiology follow-up encounter Dementia Dementia Depression Difficulty swallowing DVT (deep venous thrombosis) Falls Falls frequently Gastric reflux h/o back surgery Health care maintenance Heart disease High cholesterol History of heart attack History of stress test Hx of echocardiogram Hypertension Low iron Non-smoker Partial complex seizures Restless legs Seizures Shortness of breath on exertion TIA (transient ischemic attack) Walker as ambulation aid Home Medications lacosamide 100 mg tablet 100 mg PO BID 06/28/20 [History Last Taken 02/02/21 06:15] mirabegron 50 mg tablet,extended release 24 hr 100 mg PO QHS tablet 11/06/20 [History Last Taken Unknown] tolterodine 4 mg capsule,extended release 24 hr 4 mg PO DAILY cap 11/06/20 [History Last Taken 02/02/21 06:15] aspirin 81 mg PO DAILY 02/13/21 [History Last Taken Unknown] atorvastatin 40 mg PO QHS 03/08/21 [History Last Taken Unknown] levothyroxine [Synthroid] 25 mcg PO DAILY 03/08/21 [History Last Taken Unknown] PEP device #1 ea 05/09/21 [Rx Last Taken Unknown] albuterol sulfate 2.5 mg CONTINUOUS NEBULIZATION ONCE #1 ml 05/09/21 [Clinic Last Taken Unknown] memantine 10 mg tablet 10 mg PO BID 05/09/21 [History Last Taken Unknown] pramipexole 0.25 mg tablet 0.5 mg PO TID tab 05/09/21 [History Last Taken Unknown] vortioxetine 5 mg tablet 20 mg PO DAILY 05/09/21 [History Last Taken Unknown] hydrocodone-acetaminophen 1 tab PO Q6H PRN PRN 3 Days #12 tablet 09/01/21 [Rx Last Taken Unknown] Probiotic Blend 1 cap PO DAILY 09/02/21 [History Last Taken Unknown] cholecalciferol (vitamin D3) [Vitamin D3] 25 mcg PO DAILY 09/02/21 [History Last Taken Unknown] cranberry 500 mg PO DAILY 09/02/21 [History Last Taken Unknown] d-mannose 500 mg PO DAILY 09/02/21 [History Last Taken Unknown] Eliquis 5 mg PO BID 09/04/21 [History Last Taken Unknown] cefdinir 300 mg PO BID 09/04/21 [History Last Taken Unknown] gabapentin 100 mg PO QHS 09/04/21 [History Last Taken Unknown] Allergy/AdvReac Type Severity Reaction Status Date / Time doxycycline Allergy Mild Vomiting Verified 09/01/21 17:34 oxycodone [From Percocet] Allergy Mild Confusion Verified 09/01/21 17:34 acetaminophen Allergy Other Verified 09/01/21 17:34 [From Darvocet-N] lamotrigine [From Lamictal] Allergy Lip Verified 09/01/21 17:34 Swelling latex Allergy Rash Verified 09/01/21 17:34 moxifloxacin HCl Allergy Other Verified 09/01/21 17:34 [From Avelox] propoxyphene napsylate Allergy Other Verified 09/01/21 17:34 [From Darvocet-N] zolpidem tartrate AdvReac Other Verified 09/01/21 17:34 [From Ambien] Family History Mother CVA (cerebral vascular accident) Father Myocardial infarction Surgical History H/O heart artery stent H/O kyphoplasty History of appendectomy History of cardiac catheterization History of esophagogastroduodenoscopy (EGD) History of laryngoscopy History of lumpectomy of left breast Hx of cataract extraction Hx of colonoscopy Hx of ventral hernia repair Social History household members: spouse housing: house Smoking Status: Never smoker alcohol intake: current alcohol intake frequency: a few times a week do you feel safe at home: Yes ROS Constitutional Constitutional: Denies chills, fever(s) or weight gain ENT HEENT: Denies headache(s), nasal congestion or nasal discharge Cardiovascular Cardiovascular: Denies chest pain or palpitations Respiratory/Chest Respiratory/Chest: Denies cough, excessive phlegm production or shortness of breath with exertion Gastrointestinal Gastrointestinal: Denies abdominal pain, nausea or vomiting Genitourinary Genitourinary: Denies dysuria Musculoskeletal Musculoskeletal: Denies joint pain or joint swelling Integumentary Integumentary: Denies rash or wounds Neurologic Neurologic: Denies focal weakness, numbness or tingling Psychiatric Psychiatric: Denies anxiety, auditory hallucinations, depression, homicidal ideation or suicidal ideation Vital Signs Vital Signs Vital Signs: 09/04/21 15:09 09/04/21 16:27 Temperature 97.6 F L Temperature Source Temporal Pulse Rate 93 Pulse Rhythm Regular Respiratory Rate 20 H Respiratory Effort Normal Respiratory Depth Normal Respiratory Pattern Normal Blood Pressure 120/80 Blood Pressure Mean 93 Blood Pressure Source Monitor Blood Pressure Position Semi-Fowlers Blood Pressure Location Right Arm Pulse Ox 94 Oxygen Delivery Method Room Air Room Air Weight Weight: 60.781 kg Body Mass Index (BMI) 27.0 Physical Exam Const alert and oriented x3 General Appearance: cooperative HEENT normocephalic Eyes PERRL and EOMs intact bilaterally Neck supple, no JVD and no carotid bruits Resp normal respiratory effort, normal air movement and clear to auscultation bilaterally Cardio regular rate and regular rhythm GI normal to inspection, nondistended, normoactive bowel sounds, non-tender and non-distended Extremity normal capillary refill General Extremity: Negative for edema Skin no rashes or lesions noted General Skin Exam: no breakdown Psych affect normal Appearance: appropriate Assessment & Plan Assessment/Plan (1) Debility: (2) Urinary tract infection: (3) Right rib fracture: (4) Compression fracture of thoracic spine, non-traumatic: (5) Costochondritis: (6) Restless leg syndrome: (7) Depression: (8) Osteoporosis: (9) Pulmonary embolism: (10) Overactive bladder: (11) Hypothyroidism: (12) Vascular dementia: (13) Seizure disorder: (14) Transient ischemic attack: (15) Hyperlipidemia: PLAN: 81 year old female with below past medical history hospitalized for urinary retention secondary to urinary tract infection, complicated by costochondritis, admitted to TCU with debility, here for rehabilitation, strengthening, prior to discharge home with . * Debility - PT/OT. * Pain - Tylenol 1000mg q8h, Oxycodone 5mg q4h prn pain (6-10). * Bowel - Miralax 17gm daily, Senna/colace 2 tablets bid, Dulcolax 10mg daily prn. * Adult immunization - Administer prevnar 13, pneumovax 23, fluzone, covid19 vaccine as appropriate. * DVT prophylaxis - Not necessary, on Eliquis. * Shortness of breath - Albuterol 2.5mg nebulized bid. * Pulmonary embolism - Eliquis 5mg bid. * Hyperlipidemia - Atorvastatin 40mg qhs. * Urinary tract infection - Cefdinir 300mg bid thru 09/07/2021. * Vitamin D deficiency - D3 25mcg daily. * Neuropathic pain - Gabapentin 100mg qhs. * Seizure disorder - Vimpat 100mg bid. * GI prophylaxis - Lactobacillus 1 tablet daily. * Vascular dementia - Donepezil 5mg daily, Memantine 10mg bid. * Skin irritation - Calmoseptine topical bid. * Costochondritis - Medrol dose pack. * Overactive bladder - Myrbetriq 100mg daily, Detrol 4mg daily. * Restless leg syndrome - Pramipexole 0.5mg tid.
--- NOTE | 2021-09-04 20:48 | NURSING ---
Presents in bed. Alert to self. Presents as agitated when asked questions. stating why do you need to know? You don't know where we are or what year it is?. Unable to state correct location, month, year. States I'm not at the hospital, I'm at home. Attempt to reorient ineffective, stating I did not make these arrangements, this is new to me. Patient unable to state reason for hospitalization, stating My made these arrangements. EAx1 with ADLs. 1:1 provided. No distress observed or reported. Call light in reach.
[2021-09-04] MEDS: Acetaminophen 500 MG Tablet 1000 MG PO (21:09)
[2021-09-04] MEDS: Gabapentin 100 MG Capsule PO (21:10)
[2021-09-04] MEDS: Atorvastatin Calcium 40 MG Tablet PO (21:10)
[2021-09-04] MEDS: Mirabegron 50 MG TAB.ER.24H 100 MG PO (21:10)
[2021-09-04] MEDS: Senna/Docusate Sodium 1 Tablet 2 TABLET PO (21:11)
[2021-09-05] MEDS: oxyCODONE 5 MG Tablet PO ×3 (03:31→19:29)
[2021-09-05] MEDS: Acetaminophen 500 MG Tablet 1000 MG PO ×3 (05:29→21:56)
[2021-09-05] MEDS: Cholecalciferol (VIT D3) 25 MCG TABLET (1,000 UNITS) PO (05:29)
[2021-09-05] MEDS: Polyethylene Glycol 3350 17 GM PACKET PO (05:29)
[2021-09-05] MEDS: Levothyroxine 25 MCG TABLET PO (05:29)
[2021-09-05] MEDS: Lacosamide 100 MG Tablet PO ×2 (05:29→19:29)
[2021-09-05] MEDS: Cefdinir 300 MG Capsule PO ×2 (05:30→19:23)
[2021-09-05] MEDS: APIXABAN 5 MG TABLET PO ×2 (05:30→19:21)
[2021-09-05] MEDS: VORTIOXETINE HYDROBROMIDE 20 MG TABLET PO (05:30)
[2021-09-05] MEDS: Tolterodine Tartrate 4 MG CAP.SA PO (05:30)
[2021-09-05] MEDS: Memantine Hydrochloride 10 MG Tablet PO ×2 (05:30→19:22)
[2021-09-05] MEDS: Pramipexole Di-HCl 0.5 MG Tablet PO ×3 (05:30→21:55)
[2021-09-05] MEDS: Senna/Docusate Sodium 1 Tablet 2 TABLET PO ×2 (05:31→19:22)
[2021-09-05] MEDS: Menthol/Lanolin/Calamine/Znox 113 GM Tube 1 APPLIC TOPICAL ×2 (05:31→22:13)
[2021-09-05 05:37] LABS: Absolute Lymphocyte Count 1.41 X10^3/uL (0.83-4.51); Absolute Neutrophil Count 7.1 X10^3/uL (2.0-7.7); Basophil# 0.02 X10^3/uL; Basophil% 0.2 % (0-1); Eosinophil# 0.04 X10^3/uL; Eosinophils% 0.4 % (0-5); Hematocrit 40.4 % (37-47); Hemoglobin 13.4 g/dL (12.0-15.0); Lymphocyte # 1.41 X10^3/ul (0.83-4.51); Lymphocyte % 15.5 % (19-41); Mean Corp Hgb Conc 33.2 g/dL (32-36); Mean Corpuscular Hgb 30.4 pg (27.0-32.0); Mean Corpuscular Volume 91.6 fL (81-99); Mean Platelet Vol. 10.2 fl (6.2-12.0); Monocyte% 5.5 % (0-10); NRBC Flagged by Analyzer 0 % (0-5); Neutrophil # 7.08 X10^3/uL (2.7-7.7); Neutrophil % 77.9 % (47-70); Platelet Count 215 K/mm3 (150-450); RBC Distribution Width CV 12.9 % (11.6-14.6); RBC Distribution Width SD 42.7 fl (35.1-43.9); Red Blood Count 4.41 M/mm3 (4.2-5.4); White Blood Count 9.1 K/mm3 (4.4-11.0)
[2021-09-05 05:59] LABS: Anion Gap 7 (5-15); BUN 31 mg/dL (7-18); BUN/Creat Ratio 44.3 RATIO (10-20); Calcium,Total 8.7 mg/dL (8.5-10.1); Chloride 106 mmol/L (98-107); EST Glomerular Filtration Rate 86 mL/min (>60); Est Glom Filt Rate - Afr Amer 104 mL/min (>60); Estimated Creatinine Clearance 43.77 ml/min; Glucose 136 mg/dL (74-106); Potassium 3.6 mmol/L (3.5-5.1); Sodium Level 137 mmol/L (136-145)
[2021-09-05] MEDS: MethylPREDNISolone DosePak 4 MG BOX PO ×4 (08:43→21:53)
[2021-09-05 08:50] VITALS: PULSE 83; RESP 18
[2021-09-05] MEDS: Albuterol 2.5 MG/3 ML VIAL.NEB. INHALATION ×2 (08:50→20:30)
--- NOTE | 2021-09-05 09:46 | NURSING ---
Patient up to chair this AM for breakfast, overall doing well. More cooperative and pleasant than day of admission 09/04/21. Patient started Medrol pack and took medications with no complications.
[2021-09-05] MEDS: Tuberculin,Purif.prot.deriv. 50 TU/ML Vial 0.1 ML ID (11:09)
--- NOTE | 2021-09-05 11:20 | NURSING ---
updated in room.
--- NOTE | 2021-09-05 11:50 | CASEMGMT ---
Addendum entered by Krista Owen 09/05/21 12:13: Social Work SW spoke w/ in regard to palliative. He states a referral was already made and they have an appointment scheduled for September 18. SW did educate about palliative care. KEL[facility] West Original Note: Social Work SW met w/pt and in room, introduced self, role of SW in TCU. SW reviewed code status, both confirm pt is a full code. MOLST not completed w/pt however due to pt's dementia. BIMS completed, pt scored 3. SW explained that there will be a plan of care meeting in the next week to review goals of care and discharge plan. states plan will be for pt to return home w/resumption of private hire home health aides, he has aides lined up for 6 hours per day, 6 days per week. Five days are a private aide, and one day is through [facility]. is open to home health care through pt's insurance. SW will continue to follow and make referrals when appropriate for homegoing. KELTON West
[2021-09-05 14:05] VITALS: BP 126/74; PULSE 91; RESP 17; TEMP 36.4; O2SAT 96
[2021-09-05] MEDS: Donepezil HCl 5 MG Tablet PO ×2 (19:21→19:23)
[2021-09-05 20:30] VITALS: PULSE 89
[2021-09-05 21:50] VITALS: O2SAT 93
[2021-09-05] MEDS: Atorvastatin Calcium 40 MG Tablet PO (21:54)
[2021-09-05] MEDS: Mirabegron 50 MG TAB.ER.24H 100 MG PO (21:54)
[2021-09-05] MEDS: Gabapentin 100 MG Capsule PO (21:56)
[2021-09-06] MEDS: oxyCODONE 5 MG Tablet PO ×4 (00:51→21:05)
[2021-09-06] MEDS: Senna/Docusate Sodium 1 Tablet 2 TABLET PO ×2 (06:14→17:10)
[2021-09-06] MEDS: Polyethylene Glycol 3350 17 GM PACKET PO (06:14)
[2021-09-06] MEDS: Cholecalciferol (VIT D3) 25 MCG TABLET (1,000 UNITS) PO (06:14)
[2021-09-06] MEDS: Lacosamide 100 MG Tablet PO ×2 (06:14→17:10)
[2021-09-06] MEDS: Cefdinir 300 MG Capsule PO ×2 (06:18→17:10)
[2021-09-06] MEDS: VORTIOXETINE HYDROBROMIDE 20 MG TABLET PO (06:18)
[2021-09-06] MEDS: Pramipexole Di-HCl 0.5 MG Tablet PO ×3 (06:18→21:07)
[2021-09-06] MEDS: Levothyroxine 25 MCG TABLET PO (06:18)
[2021-09-06] MEDS: Acetaminophen 500 MG Tablet 1000 MG PO ×3 (06:18→21:05)
[2021-09-06] MEDS: Menthol/Lanolin/Calamine/Znox 113 GM Tube 1 APPLIC TOPICAL ×2 (06:19→17:39)
[2021-09-06] MEDS: Memantine Hydrochloride 10 MG Tablet PO ×2 (06:19→17:10)
[2021-09-06] MEDS: APIXABAN 5 MG TABLET PO ×2 (06:19→17:10)
[2021-09-06 06:20] VITALS: BP 148/76; PULSE 77
[2021-09-06] MEDS: Albuterol 2.5 MG/3 ML VIAL.NEB. INHALATION (06:33)
[2021-09-06] MEDS: MethylPREDNISolone DosePak 4 MG BOX PO ×4 (08:39→21:06)
[2021-09-06] MEDS: Tolterodine Tartrate 4 MG CAP.SA PO (08:40)
[2021-09-06 10:00] VITALS: PULSE 81; RESP 16; O2SAT 94
--- NOTE | 2021-09-06 11:32 | NURSING ---
Spoke with spouse, POA and patient. They are in agreement that patient is to be a full code.
--- NOTE | 2021-09-06 13:21 | PCM.PN.RX ---
Progress Note - Pharmacy Subjective: TCU ADMISSION Objective: Allergies doxycycline Allergy (Mild, Verified 09/01/21 17:34) Vomiting oxycodone [From Percocet] Allergy (Mild, Verified 09/01/21 17:34) Confusion acetaminophen [From Darvocet-N] Allergy (Verified 09/01/21 17:34) Other lamotrigine [From Lamictal] Allergy (Verified 09/01/21 17:34) Lip Swelling latex Allergy (Verified 09/01/21 17:34) Rash moxifloxacin HCl [From Avelox] Allergy (Verified 09/01/21 17:34) Other propoxyphene napsylate [From Darvocet-N] Allergy (Verified 09/01/21 17:34) Other zolpidem tartrate [From Ambien] Adverse Reaction (Verified 09/01/21 17:34) Other Current Medications Generic Name Dose Route Start Last Admin Trade Name Freq PRN Reason Stop Dose Admin Acetaminophen 1,000 mg 09/04/21 22:00 09/06/21 06:18 Acetaminophen 500 Mg Tablet PO 1,000 mg Q8 STACY Administration Albuterol Sulfate 2.5 mg 09/04/21 18:00 09/06/21 06:33 Albuterol 2.5 Mg/3 Ml Vial.Neb. INHALATION 2.5 mg BID.RT STACY Administration Apixaban 5 mg 09/04/21 18:00 09/06/21 06:19 Apixaban 5 Mg Tablet PO 5 mg BID STAYC Administration Atorvastatin Calcium 40 mg 09/04/21 22:00 09/05/21 21:54 Atorvastatin Calcium 40 Mg Tablet PO 40 mg QHS STACY Administration Bisacodyl 10 mg 09/04/21 20:09 Bisacodyl 5 Mg Tablet PO DAILY PRN Constipation Calamine/Phenol 1 applic 09/04/21 18:00 09/06/21 06:19 Menthol/Lanolin/Calamine/Znox 113 Gm Tube TOPICAL 1 applic BID STACY Administration Protocol Cefdinir 300 mg 09/04/21 18:00 09/06/21 06:18 Cefdinir 300 Mg Capsule PO 09/07/21 06:01 300 mg BID STACY Administration Cholecalciferol 25 mcg 09/07/21 08:00 Cholecalciferol (Vit D3) 25 Mcg Tablet (1,000 Units) PO DAILY@0800 [facility] Donepezil HCl 5 mg 09/05/21 17:00 09/05/21 19:23 Donepezil Hcl 5 Mg Tablet PO 5 mg 1700 [facility] Administration Gabapentin 100 mg 09/04/21 22:00 09/05/21 21:56 Gabapentin 100 Mg Capsule PO 100 mg QHS [facility] Administration Lacosamide 100 mg 09/04/21 18:00 09/06/21 06:14 Lacosamide 100 Mg Tablet PO 100 mg BID STACY Administration Lactobacillus Acidophilus 1 tablet 09/06/21 08:00 09/06/21 08:40 Lactobacillus Acidophilus PO 1 tablet DAILY@0800 [facility] Administration Levothyroxine Sodium 25 mcg 09/05/21 06:00 09/06/21 06:18 Levothyroxine 25 Mcg Tablet PO 25 mcg DAILY [facility] Administration Memantine 10 mg 09/04/21 18:00 09/06/21 06:19 Memantine Hydrochloride 10 Mg Tablet PO 10 mg BID [facility] Administration Methylprednisolone 4 mg 09/05/21 08:00 09/06/21 08:39 Methylprednisolone Dosepak 4 Mg Box PO 09/10/21 08:59 4 mg 0800,1200,1700 [facility] Administration Taper Mirabegron 100 mg 09/04/21 22:00 09/05/21 21:54 Mirabegron 50 Mg Tab.Er.24h PO 100 mg QHS [facility] Administration Oxycodone HCl 5 mg 09/04/21 17:28 09/06/21 10:49 Oxycodone 5 Mg Tablet PO 5 mg Q4H PRN PRN Administration Pain Score 6-10 Polyethylene Glycol 17 gm 09/05/21 06:00 09/06/21 06:14 Polyethylene Glycol 3350 17 Gm Packet PO 17 gm DAILY [facility] Administration Pramipexole Dihydrochloride 0.5 mg 09/04/21 14:00 09/06/21 06:18 Pramipexole Di-Hcl 0.5 Mg Tablet PO 0.5 mg TID [facility] Administration Senna/Docusate Sodium 2 tablet 09/04/21 20:15 09/06/21 06:14 Senna/Docusate Sodium 1 Tablet PO 2 tablet BID [facility] Administration Tolterodine Tartrate 4 mg 09/06/21 08:00 09/06/21 08:40 Tolterodine Tartrate 4 Mg Cap.Sa PO 4 mg DAILY@0800 [facility] Administration Tuberculin PPD 0.1 ml 09/12/21 10:00 Tuberculin,Purif.Prot.Deriv. 50 Tu/Ml Vial ID 09/12/21 10:01 X1 ONE Problem List (Last Reviewed 09/04/21 @ 19:[address] Arun Ramos MD) Hyperlipidemia (Acute) Transient ischemic attack (Acute) Seizure disorder (Acute) Vascular dementia (Acute) Hypothyroidism (Acute) Overactive bladder (Acute) Pulmonary embolism (Acute) Osteoporosis (Acute) Depression (Acute) Restless leg syndrome (Acute) Costochondritis (Acute) Compression fracture of thoracic spine, non-traumatic (Acute) Right rib fracture (Acute) Urinary tract infection (Acute) Debility (Acute) Vital Signs Temp Pulse Resp BP Pulse Ox 97.5 F L 81 16 148/76 H 94 09/05/21 14:05 09/06/21 10:00 09/06/21 10:00 09/06/21 06:20 09/06/21 10:00 Oxygen Delivery Method Room Air Weight: 60.781 kg Body Mass Index (BMI) 27.0 Sodium 137 mmol/L (136-145) 09/05/21 05:10 Potassium 3.6 mmol/L (3.5-5.1) 09/05/21 05:10 Chloride 106 mmol/L (98-107) 09/05/21 05:10 Carbon Dioxide 24.0 mmol/L (21.0-32.0) 09/05/21 05:10 Anion Gap 7 (5-15) 09/05/21 05:10 BUN 31 mg/dL (7-18) H 09/05/21 05:10 Creatinine 0.70 mg/dL (0.55-1.02) 09/05/21 05:10 Est GFR (MDRD) Af Amer 104 mL/min (>60) 09/05/21 05:10 Est GFR (MDRD) Non-Af 86 mL/min (>60) 09/05/21 05:10 BUN/Creatinine Ratio 44.3 RATIO (10-20) H 09/05/21 05:10 Glucose 136 mg/dL (74-106) H 09/05/21 05:10 Assessment/Plan: 1. Pain: Tylenol 1000mg PO Q8h, Oxycodone 5mg PO Q4h PRN Pain 6-10. Please continue to monitor for increased/decreased S/S pain, PRN medication usage. 2. Pulmonary Embolism: Eliquis 5mg PO BID. Please continue to monitor for bleeding/bruising, S/S recurrent blood clot. 3. Seizure Disorder: Vimpat 100mg PO BID. Please continue to monitor for seizure like activity, medication effectiveness. 4. Hypothyroidism: Synthroid 25mcg PO Daily. Please continue to monitor thyroid function tests as clinically indicated. 5. OAB: Detrol LA 4mg PO Daily, Myrbetriq 100mg PO QHS. Please continue to monitor for improvement in OAB symptoms. 6. Neuropathic Pain: Gabapentin 100mg PO QHS. Please continue to monitor for progression of symptoms, renal function, over sedation. 7. Vascular Dementia: Aricept 5mg PO Daily, Namenda 10mg PO BID. Please continue to monitor for progression of symptoms, vivid dreams, headache. 8. HLD: Lipitor 40mg PO QHS. Please continue to monitor lipid panel annually or sooner if clinically indicated. 9. SOB: Albuterol nebulization BID. Please continue to monitor HR, improvement in symptoms. 10. UTI: Omnicef 300mg PO BID thru 09/07/21. Please continue to monitor culture data, nausea, GI upset, and for resolution of infection. 11. Costochondritis: Medrol Dose Devan thru 09/10/21. Please continue to monitor for insomnia, GI upset, restlessness. 12. RLS: Pramipexole 0.5mg PO TID. Please continue to monitor for resolution of symptoms. 13. General Wellness: Vitamin D3 25mcg PO Daily, Acidophilus 1 tab PO Daily. Please continue to monitor. Psychotropic Medications: None Unnecessary Medications: None Bowel Regimen: Miralax 17g PO Daily, Senna/docusate 2 tab PO BID, Dulcolax 10mg PO Daily PRN. Please continue to monitor for constipation and/or diarrhea, PRN medication usage. Date of Note:: 09/06/21
[2021-09-06 14:16] VITALS: BP 136/88; PULSE 98; RESP 16; TEMP 36.2; O2SAT 91
[2021-09-06] MEDS: Gabapentin 100 MG Capsule PO (21:05)
[2021-09-06] MEDS: Atorvastatin Calcium 40 MG Tablet PO (21:06)
[2021-09-06] MEDS: Mirabegron 50 MG TAB.ER.24H 100 MG PO (21:07)
[2021-09-07 05:45] VITALS: BP 150/86; PULSE 77
[2021-09-07] MEDS: Polyethylene Glycol 3350 17 GM PACKET PO (05:48)
[2021-09-07] MEDS: oxyCODONE 5 MG Tablet PO (05:49)
[2021-09-07] MEDS: Levothyroxine 25 MCG TABLET PO (05:49)
[2021-09-07] MEDS: Cefdinir 300 MG Capsule PO (05:49)
[2021-09-07] MEDS: Acetaminophen 500 MG Tablet 1000 MG PO ×3 (05:49→20:12)
[2021-09-07] MEDS: Lacosamide 100 MG Tablet PO ×2 (05:49→17:19)
[2021-09-07] MEDS: APIXABAN 5 MG TABLET PO ×2 (05:50→17:16)
[2021-09-07] MEDS: Memantine Hydrochloride 10 MG Tablet PO ×2 (05:50→17:17)
[2021-09-07] MEDS: VORTIOXETINE HYDROBROMIDE 20 MG TABLET PO (05:50)
[2021-09-07] MEDS: Pramipexole Di-HCl 0.5 MG Tablet PO ×3 (05:50→20:13)
[2021-09-07] MEDS: Senna/Docusate Sodium 1 Tablet 2 TABLET PO ×2 (05:50→17:17)
[2021-09-07] MEDS: Menthol/Lanolin/Calamine/Znox 113 GM Tube 1 APPLIC TOPICAL ×2 (05:59→17:19)
[2021-09-07 07:22] VITALS: PULSE 72; RESP 18
[2021-09-07] MEDS: Albuterol 2.5 MG/3 ML VIAL.NEB. INHALATION ×2 (07:22→18:35)
[2021-09-07] MEDS: Cholecalciferol (VIT D3) 25 MCG TABLET (1,000 UNITS) PO (08:59)
[2021-09-07] MEDS: MethylPREDNISolone DosePak 4 MG BOX PO ×4 (08:59→20:13)
[2021-09-07] MEDS: Tolterodine Tartrate 4 MG CAP.SA PO (08:59)
[2021-09-07 16:00] VITALS: BP 127/70; PULSE 84; RESP 16; TEMP 36.7; O2SAT 94
--- NOTE | 2021-09-07 17:14 | NURSING ---
dr dos santos dc'd Aricept per request. states pt only takes namenda
[2021-09-07 18:35] VITALS: PULSE 86; RESP 20
[2021-09-07] MEDS: Mirabegron 50 MG TAB.ER.24H 100 MG PO (20:13)
[2021-09-07] MEDS: Gabapentin 100 MG Capsule PO (20:13)
[2021-09-07] MEDS: Atorvastatin Calcium 40 MG Tablet PO (20:13)
[2021-09-07 20:23] VITALS: RESP 15
[2021-09-08 05:20] VITALS: BP 149/75; PULSE 67
[2021-09-08] MEDS: Acetaminophen 500 MG Tablet 1000 MG PO ×3 (05:20→21:45)
[2021-09-08] MEDS: Senna/Docusate Sodium 1 Tablet 2 TABLET PO ×2 (05:20→17:53)
[2021-09-08] MEDS: Polyethylene Glycol 3350 17 GM PACKET PO (05:20)
[2021-09-08] MEDS: Memantine Hydrochloride 10 MG Tablet PO ×2 (05:20→17:53)
[2021-09-08] MEDS: Levothyroxine 25 MCG TABLET PO (05:20)
[2021-09-08] MEDS: Pramipexole Di-HCl 0.5 MG Tablet PO ×3 (05:20→21:44)
[2021-09-08] MEDS: Lacosamide 100 MG Tablet PO ×2 (05:20→17:52)
[2021-09-08] MEDS: VORTIOXETINE HYDROBROMIDE 20 MG TABLET PO (05:20)
[2021-09-08] MEDS: oxyCODONE 5 MG Tablet PO ×3 (05:21→17:52)
[2021-09-08] MEDS: Menthol/Lanolin/Calamine/Znox 113 GM Tube 1 APPLIC TOPICAL ×2 (05:22→17:55)
[2021-09-08] MEDS: APIXABAN 5 MG TABLET PO ×2 (05:22→17:53)
[2021-09-08 07:26] VITALS: PULSE 70; RESP 18
[2021-09-08] MEDS: Albuterol 2.5 MG/3 ML VIAL.NEB. INHALATION ×2 (07:26→19:30)
[2021-09-08] MEDS: MethylPREDNISolone DosePak 4 MG BOX PO ×3 (08:42→21:38)
[2021-09-08] MEDS: Tolterodine Tartrate 4 MG CAP.SA PO (08:42)
[2021-09-08] MEDS: Cholecalciferol (VIT D3) 25 MCG TABLET (1,000 UNITS) PO (08:43)
[2021-09-08 13:35] VITALS: BP 144/85; PULSE 80; RESP 16; TEMP 36.3; O2SAT 92
[2021-09-08 19:30] VITALS: PULSE 75; RESP 20
[2021-09-08] MEDS: Mirabegron 50 MG TAB.ER.24H 100 MG PO (21:43)
[2021-09-08] MEDS: Gabapentin 100 MG Capsule PO (21:44)
[2021-09-08] MEDS: Atorvastatin Calcium 40 MG Tablet PO (21:45)
[2021-09-09] MEDS: Polyethylene Glycol 3350 17 GM PACKET PO (05:49)
[2021-09-09] MEDS: Senna/Docusate Sodium 1 Tablet 2 TABLET PO ×2 (05:50→17:10)
[2021-09-09] MEDS: Memantine Hydrochloride 10 MG Tablet PO ×2 (05:50→17:11)
[2021-09-09] MEDS: APIXABAN 5 MG TABLET PO ×2 (05:50→17:10)
[2021-09-09] MEDS: Levothyroxine 25 MCG TABLET PO (05:50)
[2021-09-09] MEDS: Pramipexole Di-HCl 0.5 MG Tablet PO ×3 (05:51→21:00)
[2021-09-09] MEDS: VORTIOXETINE HYDROBROMIDE 20 MG TABLET PO (05:51)
[2021-09-09] MEDS: Acetaminophen 500 MG Tablet 1000 MG PO ×3 (05:51→21:00)
[2021-09-09] MEDS: Lacosamide 100 MG Tablet PO ×2 (05:53→17:09)
[2021-09-09] MEDS: Menthol/Lanolin/Calamine/Znox 113 GM Tube 1 APPLIC TOPICAL ×2 (05:59→17:09)
[2021-09-09] MEDS: MethylPREDNISolone DosePak 4 MG BOX PO ×2 (08:25→21:01)
[2021-09-09] MEDS: Tolterodine Tartrate 4 MG CAP.SA PO (08:26)
[2021-09-09] MEDS: Cholecalciferol (VIT D3) 25 MCG TABLET (1,000 UNITS) PO (08:27)
[2021-09-09] MEDS: Albuterol 2.5 MG/3 ML VIAL.NEB. INHALATION ×2 (13:27→19:05)
[2021-09-09 16:00] VITALS: BP 145/83; PULSE 91; RESP 14; TEMP 36.3; O2SAT 92
[2021-09-09 19:05] VITALS: PULSE 85; RESP 20
[2021-09-09] MEDS: Gabapentin 100 MG Capsule PO (21:00)
[2021-09-09] MEDS: Mirabegron 50 MG TAB.ER.24H 100 MG PO (21:01)
[2021-09-09] MEDS: Atorvastatin Calcium 40 MG Tablet PO (21:01)
[2021-09-09 22:00] VITALS: PULSE 88; RESP 16; O2SAT 94
[2021-09-10 06:45] VITALS: BP 101/49; PULSE 81
[2021-09-10] MEDS: Lacosamide 100 MG Tablet PO ×2 (06:50→17:24)
[2021-09-10] MEDS: APIXABAN 5 MG TABLET PO ×2 (06:51→18:46)
[2021-09-10] MEDS: Senna/Docusate Sodium 1 Tablet 2 TABLET PO ×2 (06:51→17:24)
[2021-09-10] MEDS: Pramipexole Di-HCl 0.5 MG Tablet PO ×3 (06:51→21:45)
[2021-09-10] MEDS: Acetaminophen 500 MG Tablet 1000 MG PO ×3 (06:51→21:44)
[2021-09-10] MEDS: Levothyroxine 25 MCG TABLET PO (06:51)
[2021-09-10] MEDS: Memantine Hydrochloride 10 MG Tablet PO ×2 (06:52→17:24)
[2021-09-10] MEDS: Polyethylene Glycol 3350 17 GM PACKET PO (06:52)
[2021-09-10] MEDS: VORTIOXETINE HYDROBROMIDE 20 MG TABLET PO (06:53)
[2021-09-10 07:05] VITALS: PULSE 82; RESP 20; O2SAT 94
[2021-09-10] MEDS: Albuterol 2.5 MG/3 ML VIAL.NEB. INHALATION (07:05)
[2021-09-10] MEDS: Menthol/Lanolin/Calamine/Znox 113 GM Tube 1 APPLIC TOPICAL ×2 (07:09→17:24)
--- NOTE | 2021-09-10 07:46 | NURSING ---
AM Blood pressure 101/49, pulse 81. Patient denies any dizziness or light headedness. Will continue to monitor.
[2021-09-10] MEDS: MethylPREDNISolone DosePak 4 MG BOX PO (08:28)
[2021-09-10] MEDS: Tolterodine Tartrate 4 MG CAP.SA PO (08:28)
[2021-09-10] MEDS: Cholecalciferol (VIT D3) 25 MCG TABLET (1,000 UNITS) PO (08:29)
[2021-09-10 14:05] VITALS: PULSE 94; RESP 16; O2SAT 97
[2021-09-10 15:07] VITALS: BP 127/73; PULSE 85; RESP 17; TEMP 36.8; O2SAT 95
[2021-09-10] MEDS: Gabapentin 100 MG Capsule PO (21:45)
[2021-09-10] MEDS: Mirabegron 50 MG TAB.ER.24H 100 MG PO (21:45)
[2021-09-10] MEDS: Atorvastatin Calcium 40 MG Tablet PO (21:45)
[2021-09-11 04:55] VITALS: BP 150/79; PULSE 69
[2021-09-11] MEDS: Polyethylene Glycol 3350 17 GM PACKET PO (04:55)
[2021-09-11] MEDS: Acetaminophen 500 MG Tablet 1000 MG PO ×3 (04:55→21:45)
[2021-09-11] MEDS: Levothyroxine 25 MCG TABLET PO (04:56)
[2021-09-11] MEDS: Memantine Hydrochloride 10 MG Tablet PO ×2 (04:56→17:03)
[2021-09-11] MEDS: Pramipexole Di-HCl 0.5 MG Tablet PO ×3 (04:56→21:45)
[2021-09-11] MEDS: Senna/Docusate Sodium 1 Tablet 2 TABLET PO ×2 (04:56→17:03)
[2021-09-11] MEDS: APIXABAN 5 MG TABLET PO ×2 (04:56→17:03)
[2021-09-11] MEDS: VORTIOXETINE HYDROBROMIDE 20 MG TABLET PO (04:56)
[2021-09-11] MEDS: Menthol/Lanolin/Calamine/Znox 113 GM Tube 1 APPLIC TOPICAL ×2 (04:58→17:03)
[2021-09-11] MEDS: Lacosamide 100 MG Tablet PO ×2 (05:00→17:03)
[2021-09-11] MEDS: Tolterodine Tartrate 4 MG CAP.SA PO (09:11)
[2021-09-11] MEDS: Cholecalciferol (VIT D3) 25 MCG TABLET (1,000 UNITS) PO (09:12)
[2021-09-11 16:00] VITALS: BP 132/67; PULSE 72; RESP 16; TEMP 36.8; O2SAT 97
[2021-09-11 21:38] VITALS: PULSE 88; RESP 16; O2SAT 95
[2021-09-11] MEDS: Atorvastatin Calcium 40 MG Tablet PO (21:45)
[2021-09-11] MEDS: Gabapentin 100 MG Capsule PO (21:45)
[2021-09-11] MEDS: Mirabegron 50 MG TAB.ER.24H 100 MG PO (21:46)
[2021-09-12] MEDS: Lacosamide 100 MG Tablet PO ×2 (05:21→17:07)
[2021-09-12] MEDS: Acetaminophen 500 MG Tablet 1000 MG PO ×3 (05:21→20:36)
[2021-09-12] MEDS: Levothyroxine 25 MCG TABLET PO (05:22)
[2021-09-12] MEDS: Memantine Hydrochloride 10 MG Tablet PO ×2 (05:22→17:07)
[2021-09-12] MEDS: Pramipexole Di-HCl 0.5 MG Tablet PO ×3 (05:23→20:35)
[2021-09-12] MEDS: APIXABAN 5 MG TABLET PO ×2 (05:23→17:07)
[2021-09-12] MEDS: VORTIOXETINE HYDROBROMIDE 20 MG TABLET PO (05:23)
[2021-09-12] MEDS: Polyethylene Glycol 3350 17 GM PACKET PO (05:23)
[2021-09-12] MEDS: Senna/Docusate Sodium 1 Tablet 2 TABLET PO (05:24)
[2021-09-12 05:25] LABS: Absolute Lymphocyte Count 1.28 X10^3/uL (0.83-4.51); Absolute Neutrophil Count 3.3 X10^3/uL (2.0-7.7); Basophil# 0.01 X10^3/uL; Basophil% 0.2 % (0-1); Hematocrit 36.2 % (37-47); Lymphocyte # 1.28 X10^3/ul (0.83-4.51); Lymphocyte % 25.9 % (19-41); Mean Corp Hgb Conc 33.1 g/dL (32-36); Mean Corpuscular Hgb 30.1 pg (27.0-32.0); Mean Corpuscular Volume 90.7 fL (81-99); Mean Platelet Vol. 9.6 fl (6.2-12.0); Monocyte# 0.26 X10^3/uL; Monocyte% 5.3 % (0-10); NRBC Flagged by Analyzer 0 % (0-5); Neutrophil # 3.28 X10^3/uL (2.7-7.7); Neutrophil % 66.2 % (47-70); Platelet Count 184 K/mm3 (150-450); RBC Distribution Width CV 12.9 % (11.6-14.6); RBC Distribution Width SD 42.4 fl (35.1-43.9); Red Blood Count 3.99 M/mm3 (4.2-5.4)
[2021-09-12 07:32] LABS: Anion Gap 10 (5-15); BUN 25 mg/dL (7-18); BUN/Creat Ratio 49.2 RATIO (10-20); Calcium,Total 7.9 mg/dL (8.5-10.1); Chloride 112 mmol/L (98-107); Creatinine, Serum 0.51 mg/dL (0.55-1.02); EST Glomerular Filtration Rate 124 mL/min (>60); Est Glom Filt Rate - Afr Amer 150 mL/min (>60); Estimated Creatinine Clearance 43.41 ml/min; Glucose 98 mg/dL (74-106); Potassium 3.4 mmol/L (3.5-5.1); Sodium Level 139 mmol/L (136-145)
[2021-09-12] MEDS: Menthol/Lanolin/Calamine/Znox 113 GM Tube 1 APPLIC TOPICAL ×2 (08:55→17:09)
[2021-09-12] MEDS: Cholecalciferol (VIT D3) 25 MCG TABLET (1,000 UNITS) PO (08:56)
[2021-09-12] MEDS: Tolterodine Tartrate 4 MG CAP.SA PO (08:56)
[2021-09-12] MEDS: Potassium Chloride Oral Tablet 20 MEQ PO (09:03)
[2021-09-12] MEDS: Tuberculin,Purif.prot.deriv. 50 TU/ML Vial 0.1 ML ID (12:29)
--- NOTE | 2021-09-12 12:30 | NURSING ---
Pt has not voided this shift pt bladder scanned for 209ml. Encouraged pt to Increase fluid intake.Will continue to monitor call light within reach..
--- NOTE | 2021-09-12 13:00 | CASEMGMT ---
Social Work IDT met with patient and for care plan meeting. Discussed patient's progress in PT/OT and nursing. ST evaled and determine pt is at baseline with cognition. Explained Medicare benefit. Encouraged to contact secondary insurance to ensure copay coverage. Pt lives at home with with private hired caregivers 6 days/wk 6 hrs/day. assists pt at night and on Friday'. Caregiver privately did report pt has significantly decline in physical condition and cognition since July. Unsure of safety in the home. Inquired to pt's baseline and goal to return home as pt currently is needing x2 assist. repeatedly stated he could care for pt by himself but asked what the other options would be. Explained hiring another aide to assist at home or consider SNFs. Suggested therapy family training to ensure that - agreed. Recommended continued therapy with the goal for pt to return to x1 assist. agreeable. expressed concern with increased pain - does have Palliative meeting scheduled 09/18 and left communication to nursing. SW to continue to follow for DC planning. Verna Eller, PL[employer] G[employer]FITTER POLITICAL RESEARCH SCIENTIST
--- NOTE | 2021-09-12 13:18 | ST ---
POC meeting held this date with the patient, the pt's , and TCU staff. Pt completed her ST evaluation this date. Pt and spouse instructed on results of evaluation (UMS 12/15). Pt lives in a condo with spouse and has caregivers Friday through Friday for daytime hours. Pt receives total assistance with med and finance tasks. Pt has diagnosis of dementia, autoimmune encephalopathy, and is being treated for UTI. Based on baseline diagnosis and score of 12/15 no further skilled speech therapy indicated at this time as it would be of little benefit to patient with little-no progress anticipated. Pt and spouse in agreement. Pt and spouse goal is for pt to return home.
[2021-09-12 13:54] VITALS: BP 132/66; PULSE 76; RESP 20; TEMP 37.1; O2SAT 95
[2021-09-12] MEDS: traMADol 50 MG Tablet PO (17:46)
[2021-09-12] MEDS: Atorvastatin Calcium 40 MG Tablet PO (20:34)
[2021-09-12] MEDS: Mirabegron 50 MG TAB.ER.24H 100 MG PO (20:34)
[2021-09-12] MEDS: Gabapentin 100 MG Capsule PO (20:35)
[2021-09-12] MEDS: Mirtazapine 15 MG Tablet 7.5 MG PO (20:37)
[2021-09-13] MEDS: Senna/Docusate Sodium 1 Tablet 2 TABLET PO (05:39)
[2021-09-13] MEDS: Acetaminophen 500 MG Tablet 1000 MG PO ×3 (05:39→20:38)
[2021-09-13] MEDS: Polyethylene Glycol 3350 17 GM PACKET PO (05:39)
[2021-09-13] MEDS: VORTIOXETINE HYDROBROMIDE 20 MG TABLET PO (05:39)
[2021-09-13] MEDS: Levothyroxine 25 MCG TABLET PO (05:39)
[2021-09-13] MEDS: Pramipexole Di-HCl 0.5 MG Tablet PO ×3 (05:39→20:37)
[2021-09-13] MEDS: Memantine Hydrochloride 10 MG Tablet PO ×2 (05:39→16:38)
[2021-09-13] MEDS: APIXABAN 5 MG TABLET PO ×2 (05:39→16:38)
[2021-09-13] MEDS: Lacosamide 100 MG Tablet PO ×2 (05:43→16:38)
[2021-09-13] MEDS: Menthol/Lanolin/Calamine/Znox 113 GM Tube 1 APPLIC TOPICAL ×2 (05:44→16:38)
[2021-09-13 06:50] LABS: Anion Gap 5 (5-15); BUN 20 mg/dL (7-18); BUN/Creat Ratio 33.2 RATIO (10-20); Calcium,Total 7.8 mg/dL (8.5-10.1); Chloride 111 mmol/L (98-107); EST Glomerular Filtration Rate 102 mL/min (>60); Est Glom Filt Rate - Afr Amer 124 mL/min (>60); Estimated Creatinine Clearance 43.41 ml/min; Glucose 94 mg/dL (74-106); Potassium 3.5 mmol/L (3.5-5.1); Sodium Level 141 mmol/L (136-145)
[2021-09-13] MEDS: Cholecalciferol (VIT D3) 25 MCG TABLET (1,000 UNITS) PO (08:14)
[2021-09-13] MEDS: Tolterodine Tartrate 4 MG CAP.SA PO (08:15)
[2021-09-13 14:14] VITALS: BP 130/68; PULSE 75; RESP 16; TEMP 36.4; O2SAT 96
--- NOTE | 2021-09-13 16:24 | CHAPLAIN ---
Type of Pastoral Visit ___ Initial Visit _x__ Follow-up Visit ___ On-call Visit ___ General Patient Visit ___ Spiritual Assessment ___ Family Conference ___ Bereavement ___ Rapid Response ___ Code Blue ___ Other (describe below) Pastoral Care Referral From _x__ Patient ___ Family ___ Nurse ___ Physician ___ Vise Hand ___ Program Supervisor ___ Other (describe below) Sacrament/Intervention _x__ Active listening ___ Anointing ___ Jainism ___ Bereavement ___ Communion ___ Lilly exploration ___ _x__ Life review _x__ Prayer ___ Reconciliation ___ Sacrament of Sick _x__ Supportive presence ___ Wedding ___ Other (describe below) Pastoral Comments patient continues to present with kind and positive spirit; pt does have difficulty in conversation to finish sentences and thoughts; pt often starts sentence again and repeats herself and is slow with words; pt is aware of her surroundings and is very appropriate to what is on TV and what is happening around her; pt welcomes visits and prayers
[2021-09-13] MEDS: Atorvastatin Calcium 40 MG Tablet PO (20:37)
[2021-09-13] MEDS: Mirabegron 50 MG TAB.ER.24H 100 MG PO (20:37)
[2021-09-13] MEDS: Gabapentin 100 MG Capsule PO (20:38)
[2021-09-13] MEDS: Mirtazapine 15 MG Tablet 7.5 MG PO (20:38)
[2021-09-13 21:15] VITALS: PULSE 82; RESP 18; O2SAT 92
[2021-09-13 22:05] VITALS: PULSE 73; RESP 17
[2021-09-13] MEDS: Albuterol 2.5 MG/3 ML VIAL.NEB. INHALATION (22:05)
--- NOTE | 2021-09-13 22:15 | NURSING ---
Patient states she feels like she's not breathing well, coarse crackles heard in lungs. Vitals ok, 02 91-93% on RA. Ask about chest pain, she denies any new or different pain, only has same tenderness she's had since injury. Updated Dr Ramos on symptoms and lung sounds. Order for cxray. Respiratory called and neb treatment given.
--- NOTE | 2021-09-13 22:30 | RAD_ITS ---
INDICATION: coarse crackles EXAMINATION/TECHNIQUE: X-RAY - XR Chest 2 Views COMPARISON: Thoracic spine x-rays 07/24/2021 FINDINGS: LINES/DEVICES: None. Multiple surgical clips left axilla. LUNGS: Symmetric normal lung volumes. No airspace opacity or abnormal interstitial pattern. No nodule or mass. No pleural effusion or pneumothorax. MEDIASTINUM AND CARDIOVASCULAR STRUCTURES: Normal size and contour of the cardiomediastinal silhouette. No evidence of pulmonary vascular congestion. BONES AND SOFT TISSUES: Exaggerated thoracic kyphosis with almost 50% vertebral body height loss from wedge compression fracture at T8. Greater than 50% vertebral body height loss at T4. This is also unchanged. RAD/Chest PA and Lateral IMPRESSION: 1. No radiographic evidence of acute cardiopulmonary disease. 2. Remote thoracic spine compression fractures with exaggerated thoracic kyphosis. Electronically Signed: Shiraz Clay DO at 22:58 EST ,
[2021-09-14] MEDS: Polyethylene Glycol 3350 17 GM PACKET PO (06:20)
[2021-09-14] MEDS: Memantine Hydrochloride 10 MG Tablet PO ×2 (06:21→17:11)
[2021-09-14] MEDS: Acetaminophen 500 MG Tablet 1000 MG PO ×3 (06:21→21:54)
[2021-09-14] MEDS: Pramipexole Di-HCl 0.5 MG Tablet PO ×3 (06:22→21:53)
[2021-09-14] MEDS: Menthol/Lanolin/Calamine/Znox 113 GM Tube 1 APPLIC TOPICAL ×2 (06:22→17:11)
[2021-09-14] MEDS: VORTIOXETINE HYDROBROMIDE 20 MG TABLET PO (06:22)
[2021-09-14] MEDS: Senna/Docusate Sodium 1 Tablet 2 TABLET PO (06:22)
[2021-09-14] MEDS: Levothyroxine 25 MCG TABLET PO (06:22)
[2021-09-14] MEDS: Lacosamide 100 MG Tablet PO ×2 (06:26→17:11)
[2021-09-14 06:30] VITALS: BP 120/73; PULSE 80
[2021-09-14] MEDS: Cholecalciferol (VIT D3) 25 MCG TABLET (1,000 UNITS) PO (08:51)
[2021-09-14] MEDS: Tolterodine Tartrate 4 MG CAP.SA PO (08:51)
[2021-09-14 14:23] VITALS: BP 148/83; PULSE 87; RESP 17; TEMP 36.7; O2SAT 92
[2021-09-14] MEDS: Atorvastatin Calcium 40 MG Tablet PO (21:52)
[2021-09-14] MEDS: Gabapentin 100 MG Capsule PO (21:53)
[2021-09-14] MEDS: Mirtazapine 15 MG Tablet 7.5 MG PO (21:53)
[2021-09-14] MEDS: Mirabegron 50 MG TAB.ER.24H 100 MG PO (21:53)
[2021-09-15] MEDS: Lacosamide 100 MG Tablet PO ×2 (06:00→18:00)
[2021-09-15] MEDS: Pramipexole Di-HCl 0.5 MG Tablet PO ×3 (06:00→22:00)
[2021-09-15] MEDS: Memantine Hydrochloride 10 MG Tablet PO ×2 (06:00→18:00)
[2021-09-15] MEDS: VORTIOXETINE HYDROBROMIDE 20 MG TABLET PO (06:00)
[2021-09-15] MEDS: Menthol/Lanolin/Calamine/Znox 113 GM Tube 1 APPLIC TOPICAL ×2 (06:00→18:00)
[2021-09-15] MEDS: Acetaminophen 500 MG Tablet 1000 MG PO ×3 (06:00→22:00)
[2021-09-15] MEDS: Levothyroxine 25 MCG TABLET PO (06:00)
[2021-09-15] MEDS: Tolterodine Tartrate 4 MG CAP.SA PO (08:00)
[2021-09-15] MEDS: Cholecalciferol (VIT D3) 25 MCG TABLET (1,000 UNITS) PO (08:00)
[2021-09-15] MEDS: Gabapentin 100 MG Capsule PO (22:00)
[2021-09-15] MEDS: Atorvastatin Calcium 40 MG Tablet PO (22:00)
[2021-09-15] MEDS: Mirabegron 50 MG TAB.ER.24H 100 MG PO (22:00)
[2021-09-15] MEDS: Mirtazapine 15 MG Tablet 7.5 MG PO (22:27)
[2021-09-16] MEDS: Lacosamide 100 MG Tablet PO ×2 (06:16→17:28)
[2021-09-16] MEDS: Memantine Hydrochloride 10 MG Tablet PO ×2 (06:17→17:28)
[2021-09-16] MEDS: VORTIOXETINE HYDROBROMIDE 20 MG TABLET PO (06:17)
[2021-09-16] MEDS: Acetaminophen 500 MG Tablet 1000 MG PO ×3 (06:17→22:12)
[2021-09-16] MEDS: Pramipexole Di-HCl 0.5 MG Tablet PO ×3 (06:18→22:14)
[2021-09-16] MEDS: Levothyroxine 25 MCG TABLET PO (06:18)
[2021-09-16] MEDS: Menthol/Lanolin/Calamine/Znox 113 GM Tube 1 APPLIC TOPICAL ×2 (06:21→17:29)
[2021-09-16] MEDS: Cholecalciferol (VIT D3) 25 MCG TABLET (1,000 UNITS) PO (08:53)
[2021-09-16] MEDS: Tolterodine Tartrate 4 MG CAP.SA PO (08:53)
[2021-09-16 13:35] VITALS: BP 118/66; PULSE 83; RESP 16; TEMP 36.6; O2SAT 95
[2021-09-16] MEDS: Mirabegron 50 MG TAB.ER.24H 100 MG PO (22:12)
[2021-09-16] MEDS: Mirtazapine 15 MG Tablet 7.5 MG PO (22:13)
[2021-09-16] MEDS: Gabapentin 100 MG Capsule PO (22:13)
[2021-09-16] MEDS: Atorvastatin Calcium 40 MG Tablet PO (22:15)
[2021-09-17] MEDS: Menthol/Lanolin/Calamine/Znox 113 GM Tube 1 APPLIC TOPICAL ×2 (05:44→17:38)
[2021-09-17] MEDS: Senna/Docusate Sodium 1 Tablet 2 TABLET PO ×2 (05:45→17:38)
[2021-09-17] MEDS: Lacosamide 100 MG Tablet PO ×2 (05:45→17:38)
[2021-09-17] MEDS: Acetaminophen 500 MG Tablet 1000 MG PO ×3 (05:46→21:43)
[2021-09-17] MEDS: VORTIOXETINE HYDROBROMIDE 20 MG TABLET PO (05:46)
[2021-09-17] MEDS: Memantine Hydrochloride 10 MG Tablet PO ×2 (05:47→17:38)
[2021-09-17] MEDS: Polyethylene Glycol 3350 17 GM PACKET PO (05:47)
[2021-09-17] MEDS: Levothyroxine 25 MCG TABLET PO (05:55)
[2021-09-17] MEDS: Pramipexole Di-HCl 0.5 MG Tablet PO ×3 (05:55→21:42)
[2021-09-17] MEDS: Tolterodine Tartrate 4 MG CAP.SA PO (09:00)
[2021-09-17] MEDS: Cholecalciferol (VIT D3) 25 MCG TABLET (1,000 UNITS) PO (11:36)
--- NOTE | 2021-09-17 13:03 | MDS.RN ---
Information for the mds was obtained from review of the clinical record, interview of resident, staff, and direct observation of resident's care. Information systems, and billing dept aware PDPM codes not generating.
[2021-09-17 14:56] VITALS: BP 118/79; PULSE 100; RESP 18; TEMP 36.5; O2SAT 93
--- NOTE | 2021-09-17 18:45 | NURSING ---
dr dos santos notified of family requesting something for dry cough, luis galloway PRN ordered.
[2021-09-17 20:00] VITALS: PULSE 96; RESP 18; O2SAT 93
[2021-09-17] MEDS: Atorvastatin Calcium 40 MG Tablet PO (21:41)
[2021-09-17] MEDS: Mirabegron 50 MG TAB.ER.24H 100 MG PO (21:42)
[2021-09-17] MEDS: Mirtazapine 15 MG Tablet 7.5 MG PO (21:43)
[2021-09-17] MEDS: Gabapentin 100 MG Capsule PO (21:43)
[2021-09-17] MEDS: Benzonatate 100 MG Capsule PO (21:49)
[2021-09-18] MEDS: Senna/Docusate Sodium 1 Tablet 2 TABLET PO (05:06)
[2021-09-18] MEDS: Menthol/Lanolin/Calamine/Znox 113 GM Tube 1 APPLIC TOPICAL ×2 (05:06→16:38)
[2021-09-18] MEDS: Acetaminophen 500 MG Tablet 1000 MG PO ×3 (05:06→21:38)
[2021-09-18] MEDS: Polyethylene Glycol 3350 17 GM PACKET PO (05:06)
[2021-09-18] MEDS: VORTIOXETINE HYDROBROMIDE 20 MG TABLET PO (05:06)
[2021-09-18] MEDS: Memantine Hydrochloride 10 MG Tablet PO ×2 (05:07→16:38)
[2021-09-18] MEDS: Lacosamide 100 MG Tablet PO ×2 (05:07→17:57)
[2021-09-18] MEDS: Pramipexole Di-HCl 0.5 MG Tablet PO ×3 (05:07→21:38)
[2021-09-18] MEDS: Levothyroxine 25 MCG TABLET PO (05:07)
[2021-09-18] MEDS: Tolterodine Tartrate 4 MG CAP.SA PO (08:51)
[2021-09-18] MEDS: Cholecalciferol (VIT D3) 25 MCG TABLET (1,000 UNITS) PO (08:51)
[2021-09-18 10:00] VITALS: PULSE 93; RESP 16; O2SAT 91
[2021-09-18] MEDS: Benzonatate 100 MG Capsule PO (10:09)
[2021-09-18 14:56] VITALS: BP 130/79; PULSE 101; RESP 16; TEMP 37.1; O2SAT 91
--- NOTE | 2021-09-18 15:44 | NURSING ---
PER PALLIATIVE CARE- ORDER FOR SENNA AND MIRALAX TO BE MADE PRN D/T LOOSE STOOLS.
--- NOTE | 2021-09-18 16:05 | NURSING ---
Resident and spouse, Misael, notified of staff member testing positive for covid.
--- NOTE | 2021-09-18 17:47 | RAD_ITS ---
STUDY: X-RAY CHEST REASON FOR EXAM: Female, 81 years old. CHEST PAIN malaise, cough. TECHNIQUE: XR Chest 2 Views COMPARISON: 09.13.21 FINDINGS: Increased kyphosis of the thoracic spine. Vertebral plasty changes in the lower lumbar spine. Stable compression deformity of the midthoracic spine. Healed right rib fractures. There are multiple metallic clips in the left axilla. This is consistent for a prior axillary dissection. There are mastectomy changes noted. Normal size heart. Normal mediastinum and kamryn. Normal visualized pulmonary arteries. There is atherosclerotic calcification of the aortic arch with tortuosity. There are diffuse degenerative changes of the visualized thoracic spine. There is degenerative osteoarthritis of the bilateral shoulders. Large hiatal hernia. RAD/Chest PA and Lateral IMPRESSION: There are no acute findings. Electronically Signed: Gunnar Kendrick MD at 20:07 EST ,
[2021-09-18 18:43] LABS: Absolute Lymphocyte Count 0.98 X10^3/uL (0.83-4.51); Absolute Neutrophil Count 4.4 X10^3/uL (2.0-7.7); Basophil# 0.02 X10^3/uL; Basophil% 0.3 % (0-1); Eosinophil# 0.07 X10^3/uL; Eosinophils% 1.2 % (0-5); Hematocrit 39.7 % (37-47); Hemoglobin 13.5 g/dL (12.0-15.0); Lymphocyte # 0.98 X10^3/ul (0.83-4.51); Lymphocyte % 16.6 % (19-41); Mean Corpuscular Hgb 31.1 pg (27.0-32.0); Mean Corpuscular Volume 91.5 fL (81-99); Mean Platelet Vol. 9.7 fl (6.2-12.0); Monocyte# 0.38 X10^3/uL; Monocyte% 6.5 % (0-10); NRBC Flagged by Analyzer 0 % (0-5); Neutrophil # 4.41 X10^3/uL (2.7-7.7); Neutrophil % 74.9 % (47-70); Platelet Count 197 K/mm3 (150-450); RBC Distribution Width CV 13.7 % (11.6-14.6); RBC Distribution Width SD 46.4 fl (35.1-43.9); Red Blood Count 4.34 M/mm3 (4.2-5.4); White Blood Count 5.9 K/mm3 (4.4-11.0)
[2021-09-18 19:02] LABS: Anion Gap 7 (5-15); BUN 22 mg/dL (7-18); BUN/Creat Ratio 34.1 RATIO (10-20); Calcium,Total 8.5 mg/dL (8.5-10.1); Chloride 110 mmol/L (98-107); Creatinine, Serum 0.65 mg/dL (0.55-1.02); EST Glomerular Filtration Rate 94 mL/min (>60); Est Glom Filt Rate - Afr Amer 114 mL/min (>60); Estimated Creatinine Clearance 42.63 ml/min; Glucose 129 mg/dL (74-106); Potassium 3.4 mmol/L (3.5-5.1); Sodium Level 139 mmol/L (136-145)
[2021-09-18] MEDS: Gabapentin 100 MG Capsule PO (21:37)
[2021-09-18] MEDS: Atorvastatin Calcium 40 MG Tablet PO (21:37)
[2021-09-18] MEDS: Mirabegron 50 MG TAB.ER.24H 100 MG PO (21:38)
[2021-09-18] MEDS: Mirtazapine 15 MG Tablet 7.5 MG PO (21:38)
[2021-09-18 22:26] LABS: Mucous, Urine 0 SEEN /hpf (<or=2+); Red Blood Cells-Urine 0 SEEN /hpf (0-5); Squamous Epithelial Cells - UA 0 SEEN /hpf (5-10); White Blood Cells 0 SEEN /hpf (0-5)
[2021-09-18 22:27] LABS: Color, Urine Yellow (Yellow); Glucose, Dipstick Normal (Normal); Ketone-Dipstick 5 mg/dl (Negative); Leukocyte Esterase-Dipstick Negative /ul (Negative); Nitrite-Dipstick Negative (Negative); Occult Blood-Urine 10 /ul (Negative); Protein-Dipstick 30 mg/dl (Negative); Urine Bilirubin Dipstick Negative (Negative); Urine Clarity Clear (Clear); Urine Urobilinogen Normal (Normal)
[2021-09-18 22:37] LABS: Bacteria 1+ /hpf (None Seen)
[2021-09-19] MEDS: Acetaminophen 500 MG Tablet 1000 MG PO ×3 (05:18→19:58)
[2021-09-19] MEDS: Memantine Hydrochloride 10 MG Tablet PO ×2 (05:19→17:39)
[2021-09-19] MEDS: Pramipexole Di-HCl 0.5 MG Tablet PO ×3 (05:19→19:59)
[2021-09-19] MEDS: Levothyroxine 25 MCG TABLET PO (05:19)
[2021-09-19] MEDS: VORTIOXETINE HYDROBROMIDE 20 MG TABLET PO (05:19)
[2021-09-19] MEDS: Lacosamide 100 MG Tablet PO ×2 (05:24→17:39)
[2021-09-19 05:33] LABS: Absolute Lymphocyte Count 1.12 X10^3/uL (0.83-4.51); Absolute Neutrophil Count 3.1 X10^3/uL (2.0-7.7); Basophil# 0.01 X10^3/uL; Basophil% 0.2 % (0-1); Eosinophil# 0.05 X10^3/uL; Eosinophils% 1.1 % (0-5); Hematocrit 35.8 % (37-47); Hemoglobin 11.9 g/dL (12.0-15.0); Lymphocyte # 1.12 X10^3/ul (0.83-4.51); Lymphocyte % 24.2 % (19-41); Mean Corp Hgb Conc 33.2 g/dL (32-36); Mean Corpuscular Hgb 30.5 pg (27.0-32.0); Mean Corpuscular Volume 91.8 fL (81-99); Mean Platelet Vol. 9.5 fl (6.2-12.0); Monocyte# 0.38 X10^3/uL; Monocyte% 8.2 % (0-10); NRBC Flagged by Analyzer 0 % (0-5); Neutrophil # 3.06 X10^3/uL (2.7-7.7); Neutrophil % 66.1 % (47-70); Platelet Count 151 K/mm3 (150-450); RBC Distribution Width CV 13.8 % (11.6-14.6); RBC Distribution Width SD 46.6 fl (35.1-43.9); White Blood Count 4.6 K/mm3 (4.4-11.0)
[2021-09-19 06:08] LABS: Anion Gap 6 (5-15); BUN 18 mg/dL (7-18); BUN/Creat Ratio 36.2 RATIO (10-20); Calcium,Total 8.1 mg/dL (8.5-10.1); Chloride 111 mmol/L (98-107); EST Glomerular Filtration Rate 127 mL/min (>60); Est Glom Filt Rate - Afr Amer 154 mL/min (>60); Estimated Creatinine Clearance 42.63 ml/min; Glucose 92 mg/dL (74-106); Potassium 3.3 mmol/L (3.5-5.1); Sodium Level 140 mmol/L (136-145)
[2021-09-19] MEDS: Cholecalciferol (VIT D3) 25 MCG TABLET (1,000 UNITS) PO (08:37)
[2021-09-19] MEDS: Tolterodine Tartrate 4 MG CAP.SA PO (08:37)
[2021-09-19] MEDS: Menthol/Lanolin/Calamine/Znox 113 GM Tube 1 APPLIC TOPICAL ×2 (08:38→17:39)
[2021-09-19] MEDS: Potassium Chloride Oral Tablet 20 MEQ PO (08:43)
[2021-09-19] MEDS: Benzonatate 100 MG Capsule PO (11:17)
--- NOTE | 2021-09-19 12:28 | NURSING ---
Notified patient's spouse that pt tested positive for covid19.
--- NOTE | 2021-09-19 13:53 | PCM.CONS.GEN ---
Assessment & Plan Assessment/Plan (1) COVID-19: PLAN: Mild covid in high risk pt. Covid neg 09/03, 09/06, 09/13. Now (+) 09/19/21. Vaccine x3. Will order 3 day course of remdesivir which should be quite effective in avoiding severe disease; she and agree with plan. Encouraged to test in next 1-2 days and monitor for sx. If O2 is less than 94% on RA, will plan on starting dex and extending remdesivir. Will follow as needed, thank you. Will order monitoring blood work. HPI Consult Data Date of Consult: 09/19/21 HPI Narrative HPI Narrative: SHELDON ALAN, is a 81 F who presented 09/02 with fall and rib fracture. Treated for uti. Transferred to TCU. Feeling fine but now covid (+). thinks chronic dry cough has increased. Denies fever, chills, sore throat, change in taste/smell, n/v/d, dyspnea, aches. Covid vaccine x3 for her and her ; he is feeling fine. Full ROS performed and neg except as noted above. [facility] Medical History aquired autoimmune encephalopathy Arthritis Asthma Back pain Bladder disease Cancer Cardiology follow-up encounter Dementia Dementia Depression Difficulty swallowing DVT (deep venous thrombosis) Falls Falls frequently Gastric reflux h/o back surgery Health care maintenance Heart disease High cholesterol History of heart attack History of stress test Hx of echocardiogram Hypertension Low iron Non-smoker Partial complex seizures Restless legs Seizures Shortness of breath on exertion TIA (transient ischemic attack) Walker as ambulation aid Home Medications lacosamide 100 mg tablet 100 mg PO BID 06/28/20 [History Last Taken 02/02/21 06:15] mirabegron 50 mg tablet,extended release 24 hr 100 mg PO QHS tablet 11/06/20 [History Last Taken Unknown] tolterodine 4 mg capsule,extended release 24 hr 4 mg PO DAILY cap 11/06/20 [History Last Taken 02/02/21 06:15] aspirin 81 mg PO DAILY 02/13/21 [History Last Taken Unknown] atorvastatin 40 mg PO QHS 03/08/21 [History Last Taken Unknown] levothyroxine [Synthroid] 25 mcg PO DAILY 03/08/21 [History Last Taken Unknown] PEP device #1 ea 05/09/21 [Rx Last Taken Unknown] albuterol sulfate 2.5 mg CONTINUOUS NEBULIZATION ONCE #1 ml 05/09/21 [Clinic Last Taken Unknown] memantine 10 mg tablet 10 mg PO BID 05/09/21 [History Last Taken Unknown] pramipexole 0.25 mg tablet 0.5 mg PO TID tab 05/09/21 [History Last Taken Unknown] vortioxetine 5 mg tablet 20 mg PO DAILY 05/09/21 [History Last Taken Unknown] hydrocodone-acetaminophen 1 tab PO Q6H PRN PRN 3 Days #12 tablet 09/01/21 [Rx Last Taken Unknown] Probiotic Blend 1 cap PO DAILY 09/02/21 [History Last Taken Unknown] cholecalciferol (vitamin D3) [Vitamin D3] 25 mcg PO DAILY 09/02/21 [History Last Taken Unknown] cranberry 500 mg PO DAILY 09/02/21 [History Last Taken Unknown] d-mannose 500 mg PO DAILY 09/02/21 [History Last Taken Unknown] Eliquis 5 mg PO BID 09/04/21 [History Last Taken Unknown] cefdinir 300 mg PO BID 09/04/21 [History Last Taken Unknown] gabapentin 100 mg PO QHS 09/04/21 [History Last Taken Unknown] Allergy/AdvReac Type Severity Reaction Status Date / Time doxycycline Allergy Mild Vomiting Verified 09/01/21 17:34 oxycodone [From Percocet] Allergy Mild Confusion Verified 09/01/21 17:34 acetaminophen Allergy Other Verified 09/01/21 17:34 [From Darvocet-N] lamotrigine [From Lamictal] Allergy Lip Verified 09/01/21 17:34 Swelling latex Allergy Rash Verified 09/01/21 17:34 moxifloxacin HCl Allergy Other Verified 09/01/21 17:34 [From Avelox] propoxyphene napsylate Allergy Other Verified 09/01/21 17:34 [From Darvocet-N] zolpidem tartrate AdvReac Other Verified 09/01/21 17:34 [From Ambien] Family History Mother CVA (cerebral vascular accident) Father Myocardial infarction Surgical History H/O heart artery stent H/O kyphoplasty History of appendectomy History of cardiac catheterization History of esophagogastroduodenoscopy (EGD) History of laryngoscopy History of lumpectomy of left breast Hx of cataract extraction Hx of colonoscopy Hx of ventral hernia repair Social History household members: spouse housing: house Smoking Status: Never smoker alcohol intake: current alcohol intake frequency: a few times a week do you feel safe at home: Yes Physical Exam Const alert and no apparent distress General Appearance: cooperative Exam Limitations: no limitations HEENT normocephalic and head/scalp atraumatic Eyes PERRL and EOMs intact bilaterally Neck supple and No nodes Resp normal air movement and clear to auscultation bilaterally Cardio regular rate and regular rhythm GI soft to palpation, non-tender and non-distended Extremity no clubbing, cyanosis or edema Skin no rashes or lesions noted Neuro CN's II-XII intact bilaterally Lab / Micro Data Result Diagrams: 09/19/21 05:17 09/19/21 05:17 Labs: Laboratory Results - last 24 hr 09/18/21 18:10: WBC 5.9, RBC 4.34, Hgb 13.5, Hct 39.7, MCV 91.5, MCH 31.1, MCHC 34.0, RDW Std Deviation 46.4 H, RDW Coeff of Jorge 13.7, Plt Count 197, MPV 9.7, Immature Gran % (Auto) 0.500, Neut % (Auto) 74.9 H, Lymph % (Auto) 16.6 L, [place] % (Auto) 6.5, Eos % (Auto) 1.2, Baso % (Auto) 0.3, Absolute Neuts (auto) 4.4, Absolute Lymphs (auto) 0.98, Nucleated RBC % 0 09/18/21 18:10: Sodium 139, Potassium 3.4 L, Chloride 110 H, Carbon Dioxide 22.0, Anion Gap 7, BUN 22 H, Creatinine 0.65, Estim Creat Clear Calc 42.63, Est GFR (MDRD) Af Amer 114, Est GFR (MDRD) Non-Af 94, BUN/Creatinine Ratio 34.1 H, Glucose 129 H, Calcium 8.5 09/18/21 22:08: Urine Color Yellow, Urine Clarity Clear, Urine pH 5.0, Ur Specific [place] 1.020, Urine Protein 30 H, Urine Glucose (UA) Normal, Urine Ketones 5 H, Urine Occult Blood 10 H, Urine Nitrite Negative, Urine Bilirubin Negative, Urine Urobilinogen Normal, Ur Leukocyte Esterase Negative, Urine RBC 0 SEEN, Urine WBC 0 SEEN, Ur Squamous Epith Cells 0 SEEN, Urine Bacteria 1+, Urine Mucus 0 SEEN 09/19/21 05:17: WBC 4.6, RBC 3.90 L, Hgb 11.9 L, Hct 35.8 L, MCV 91.8, MCH 30.5, MCHC 33.2, RDW Std Deviation 46.6 H, RDW Coeff of Jorge 13.8, Plt Count 151, MPV 9.5, Immature Gran % (Auto) 0.200, Neut % (Auto) 66.1, Lymph % (Auto) 24.2, [place] % (Auto) 8.2, Eos % (Auto) 1.1, Baso % (Auto) 0.2, Absolute Neuts (auto) 3.1, Absolute Lymphs (auto) 1.12, Nucleated RBC % 0 09/19/21 05:17: Sodium 140, Potassium 3.3 L, Chloride 111 H, Carbon Dioxide 23.0, Anion Gap 6, BUN 18, Creatinine 0.50 L, Estim Creat Clear Calc 42.63, Est GFR (MDRD) Af Amer 154, Est GFR (MDRD) Non-Af 127, BUN/Creatinine Ratio 36.2 H, Glucose 92, Calcium 8.1 L Micro: Microbiology 09/19/21 11:18 Nasal Secretion SARS-CoV-2 Antigen (Rapid) - Final SARS-CoV-2 (COVID 19) 09/18/21 22:08 Urine Catheter - Catheter Urine Culture - Preliminary Culture exhibits no growth. Radiology Impression Chest X-Ray 09/18/21 17:47 IMPRESSION: There are no acute findings. Electronically Signed: Gunnar Kendrick MD at 20:07 EST ,
[2021-09-19 14:06] LABS: AST(SGOT) 10 U/L (15-37); Alanine Aminotransfer ALT/SGPT 19 U/L (13-56); Albumin, Serum 2.7 g/dL (3.2-5.0); Alkaline Phosphatase 119 U/L (45-117); Bilirubin, Direct 0.13 mg/dL (0.00-0.30); Globulin 3.3 g/dL (2.2-4.2)
[2021-09-19 16:00] VITALS: BP 109/72; PULSE 94; RESP 18; TEMP 36; O2SAT 92
[2021-09-19] MEDS: 0.9% Normal Saline 250 ML IV.SOLN. IV (16:27)
[2021-09-19] MEDS: 0.9% Saline Lock 10 ML Syringe IV (17:39)
[2021-09-19 19:30] VITALS: PULSE 88; RESP 18; O2SAT 93
[2021-09-19] MEDS: Gabapentin 100 MG Capsule PO (19:58)
[2021-09-19] MEDS: Atorvastatin Calcium 40 MG Tablet PO (19:58)
[2021-09-19] MEDS: traMADol 50 MG Tablet PO (19:58)
[2021-09-19] MEDS: Mirtazapine 15 MG Tablet 7.5 MG PO (19:59)
[2021-09-19] MEDS: Mirabegron 50 MG TAB.ER.24H 100 MG PO (20:00)
[2021-09-20 01:14] VITALS: BP 128/74; PULSE 76; RESP 18; O2SAT 89; O2SAT 94
--- NOTE | 2021-09-20 01:20 | NURSING ---
Checked 02 levels overnight, sats 88-89% on room air, placed on 2L NC. Patient in no distress, denies any needs at this time.
[2021-09-20 05:46] LABS: Hematocrit 35.2 % (37-47); Hemoglobin 11.6 g/dL (12.0-15.0); Mean Corpuscular Hgb 30.7 pg (27.0-32.0); Mean Corpuscular Volume 93.1 fL (81-99); Mean Platelet Vol. 9.7 fl (6.2-12.0); Platelet Count 144 K/mm3 (150-450); RBC Distribution Width SD 47.8 fl (35.1-43.9); Red Blood Count 3.78 M/mm3 (4.2-5.4); White Blood Count 4.5 K/mm3 (4.4-11.0)
[2021-09-20 06:21] LABS: ALB/GLOB Ratio 0.8 RATIO (0.9-2.4); AST(SGOT) 10 U/L (15-37); Alanine Aminotransfer ALT/SGPT 17 U/L (13-56); Albumin, Serum 2.5 g/dL (3.2-5.0); Alkaline Phosphatase 116 U/L (45-117); Anion Gap 5 (5-15); BUN 25 mg/dL (7-18); BUN/Creat Ratio 49.4 RATIO (10-20); Calcium,Total 8.1 mg/dL (8.5-10.1); Chloride 111 mmol/L (98-107); Creatinine, Serum 0.51 mg/dL (0.55-1.02); EST Glomerular Filtration Rate 125 mL/min (>60); Est Glom Filt Rate - Afr Amer 151 mL/min (>60); Estimated Creatinine Clearance 42.63 ml/min; Globulin 3.2 g/dL (2.2-4.2); Glucose 96 mg/dL (74-106); Potassium 3.6 mmol/L (3.5-5.1); Protein, Total 5.7 g/dL (6.4-8.2); Sodium Level 140 mmol/L (136-145)
[2021-09-20] MEDS: Lacosamide 100 MG Tablet PO ×2 (06:27→17:06)
[2021-09-20] MEDS: Menthol/Lanolin/Calamine/Znox 113 GM Tube 1 APPLIC TOPICAL ×2 (06:27→17:09)
[2021-09-20] MEDS: Acetaminophen 500 MG Tablet 1000 MG PO ×3 (06:27→21:15)
[2021-09-20] MEDS: Pramipexole Di-HCl 0.5 MG Tablet PO ×3 (06:27→21:15)
[2021-09-20] MEDS: Levothyroxine 25 MCG TABLET PO (06:27)
[2021-09-20] MEDS: Memantine Hydrochloride 10 MG Tablet PO ×2 (06:27→17:03)
[2021-09-20] MEDS: VORTIOXETINE HYDROBROMIDE 20 MG TABLET PO (06:28)
[2021-09-20] MEDS: Potassium Chloride Oral Tablet 20 MEQ PO (08:04)
[2021-09-20] MEDS: Tolterodine Tartrate 4 MG CAP.SA PO (08:04)
[2021-09-20] MEDS: Cholecalciferol (VIT D3) 25 MCG TABLET (1,000 UNITS) PO (08:05)
[2021-09-20 10:00] VITALS: PULSE 84; RESP 16; O2SAT 95
[2021-09-20 10:29] VITALS: O2SAT 94
[2021-09-20 16:00] VITALS: BP 135/77; PULSE 83; RESP 16; TEMP 35.7; O2SAT 95
[2021-09-20] MEDS: Mirabegron 50 MG TAB.ER.24H 100 MG PO (21:14)
[2021-09-20] MEDS: Atorvastatin Calcium 40 MG Tablet PO (21:14)
[2021-09-20] MEDS: Mirtazapine 15 MG Tablet 7.5 MG PO (21:15)
[2021-09-20] MEDS: Gabapentin 100 MG Capsule PO (21:15)
[2021-09-20] MEDS: Benzonatate 100 MG Capsule PO (22:09)
[2021-09-21] MEDS: Memantine Hydrochloride 10 MG Tablet PO ×2 (06:04→17:07)
[2021-09-21] MEDS: Levothyroxine 25 MCG TABLET PO (06:04)
[2021-09-21] MEDS: Pramipexole Di-HCl 0.5 MG Tablet PO ×3 (06:04→22:30)
[2021-09-21] MEDS: Lacosamide 100 MG Tablet PO ×2 (06:04→17:23)
[2021-09-21] MEDS: Acetaminophen 500 MG Tablet 1000 MG PO ×3 (06:05→22:30)
[2021-09-21] MEDS: Menthol/Lanolin/Calamine/Znox 113 GM Tube 1 APPLIC TOPICAL ×2 (06:05→17:01)
[2021-09-21] MEDS: VORTIOXETINE HYDROBROMIDE 20 MG TABLET PO (06:05)
[2021-09-21 06:31] LABS: Hematocrit 35.3 % (37-47); Hemoglobin 12.1 g/dL (12.0-15.0); Mean Corp Hgb Conc 34.3 g/dL (32-36); Mean Corpuscular Hgb 31.8 pg (27.0-32.0); Mean Corpuscular Volume 92.7 fL (81-99); Mean Platelet Vol. 9.4 fl (6.2-12.0); Platelet Count 150 K/mm3 (150-450); RBC Distribution Width CV 13.8 % (11.6-14.6); RBC Distribution Width SD 47.1 fl (35.1-43.9); Red Blood Count 3.81 M/mm3 (4.2-5.4); White Blood Count 3.4 K/mm3 (4.4-11.0)
[2021-09-21 07:05] LABS: ALB/GLOB Ratio 0.8 RATIO (0.9-2.4); AST(SGOT) 14 U/L (15-37); Alanine Aminotransfer ALT/SGPT 18 U/L (13-56); Albumin, Serum 2.6 g/dL (3.2-5.0); Alkaline Phosphatase 112 U/L (45-117); Anion Gap 5 (5-15); BUN 23 mg/dL (7-18); BUN/Creat Ratio 45.1 RATIO (10-20); Chloride 112 mmol/L (98-107); Creatinine, Serum 0.51 mg/dL (0.55-1.02); EST Glomerular Filtration Rate 124 mL/min (>60); Est Glom Filt Rate - Afr Amer 150 mL/min (>60); Estimated Creatinine Clearance 42.63 ml/min; Globulin 3.3 g/dL (2.2-4.2); Glucose 98 mg/dL (74-106); Potassium 3.6 mmol/L (3.5-5.1); Protein, Total 5.9 g/dL (6.4-8.2); Sodium Level 140 mmol/L (136-145)
[2021-09-21] MEDS: Potassium Chloride Oral Tablet 20 MEQ PO (07:39)
[2021-09-21] MEDS: Cholecalciferol (VIT D3) 25 MCG TABLET (1,000 UNITS) PO (07:39)
[2021-09-21] MEDS: Tolterodine Tartrate 4 MG CAP.SA PO (07:39)
[2021-09-21] MEDS: 0.9% Saline Lock 10 ML Syringe IV (10:15)
[2021-09-21 11:24] VITALS: O2SAT 93
[2021-09-21 16:00] VITALS: BP 149/101; PULSE 93; RESP 16; TEMP 36.4; O2SAT 95
[2021-09-21] MEDS: Atorvastatin Calcium 40 MG Tablet PO (22:28)
[2021-09-21] MEDS: Mirabegron 50 MG TAB.ER.24H 100 MG PO (22:28)
[2021-09-21] MEDS: Mirtazapine 15 MG Tablet 7.5 MG PO (22:30)
[2021-09-21] MEDS: Gabapentin 100 MG Capsule PO (22:30)
[2021-09-21 23:00] VITALS: RESP 16
[2021-09-22] MEDS: VORTIOXETINE HYDROBROMIDE 20 MG TABLET PO (06:46)
[2021-09-22] MEDS: Memantine Hydrochloride 10 MG Tablet PO ×2 (06:46→17:59)
[2021-09-22] MEDS: Acetaminophen 500 MG Tablet 1000 MG PO ×3 (06:46→20:43)
[2021-09-22] MEDS: Lacosamide 100 MG Tablet PO ×2 (06:50→17:59)
[2021-09-22] MEDS: Levothyroxine 25 MCG TABLET PO (06:50)
[2021-09-22] MEDS: Pramipexole Di-HCl 0.5 MG Tablet PO ×3 (06:51→20:44)
[2021-09-22] MEDS: Menthol/Lanolin/Calamine/Znox 113 GM Tube 1 APPLIC TOPICAL ×2 (07:18→17:59)
[2021-09-22] MEDS: Cholecalciferol (VIT D3) 25 MCG TABLET (1,000 UNITS) PO (10:08)
[2021-09-22] MEDS: Potassium Chloride Oral Tablet 20 MEQ PO (10:08)
[2021-09-22] MEDS: Tolterodine Tartrate 4 MG CAP.SA PO (10:08)
[2021-09-22 10:26] VITALS: BP 108/76; PULSE 93; RESP 20; TEMP 36.1; O2SAT 94
[2021-09-22 10:28] VITALS: PULSE 70; RESP 18; O2SAT 93
[2021-09-22] MEDS: Albuterol 2.5 MG/3 ML VIAL.NEB. INHALATION ×2 (10:28→21:31)
[2021-09-22 10:35] VITALS: PULSE 100; RESP 20; O2SAT 94
[2021-09-22 14:34] VITALS: BP 143/88; PULSE 94; RESP 18; TEMP 36.1; O2SAT 94
--- NOTE | 2021-09-22 18:50 | NURSING ---
pt did great with ambulating to BR with much direction but much improved since admit. pt does get SOB with exertion. sat 94% on RA. pt able to wash face, gown placed on pt. at bedside. pt did c/o of slight dizziness when turning to sit on toilet. pt back to chair, call light in reach. alarm in place. denies needs.
[2021-09-22] MEDS: Mirabegron 50 MG TAB.ER.24H 100 MG PO (20:40)
[2021-09-22] MEDS: Atorvastatin Calcium 40 MG Tablet PO (20:42)
[2021-09-22] MEDS: Gabapentin 100 MG Capsule PO (20:43)
[2021-09-22] MEDS: Mirtazapine 15 MG Tablet 7.5 MG PO (20:43)
--- NOTE | 2021-09-22 21:20 | NURSING ---
Patient assessed with SPO2 at 92% RA. Patient diminished throughout. Requesting PRN breathing treatment, respiratory notified.
[2021-09-22 21:31] VITALS: PULSE 85; RESP 18
[2021-09-23] MEDS: Pramipexole Di-HCl 0.5 MG Tablet PO ×3 (05:37→22:54)
[2021-09-23] MEDS: Memantine Hydrochloride 10 MG Tablet PO ×2 (05:37→16:40)
[2021-09-23] MEDS: Levothyroxine 25 MCG TABLET PO (05:37)
[2021-09-23] MEDS: Acetaminophen 500 MG Tablet 1000 MG PO ×3 (05:37→22:53)
[2021-09-23] MEDS: Menthol/Lanolin/Calamine/Znox 113 GM Tube 1 APPLIC TOPICAL ×2 (05:38→16:37)
[2021-09-23] MEDS: VORTIOXETINE HYDROBROMIDE 20 MG TABLET PO (05:38)
[2021-09-23] MEDS: Lacosamide 100 MG Tablet PO ×2 (05:41→16:40)
[2021-09-23 06:10] VITALS: BP 112/77; PULSE 88; RESP 19; TEMP 37; O2SAT 95
[2021-09-23 07:42] VITALS: O2SAT 95
[2021-09-23] MEDS: Tolterodine Tartrate 4 MG CAP.SA PO (08:36)
[2021-09-23] MEDS: Potassium Chloride Oral Tablet 20 MEQ PO (08:36)
[2021-09-23] MEDS: Cholecalciferol (VIT D3) 25 MCG TABLET (1,000 UNITS) PO (08:37)
[2021-09-23 09:21] VITALS: BP 152/82; PULSE 83; RESP 16; TEMP 36.2; O2SAT 95
[2021-09-23 09:45] VITALS: PULSE 79; RESP 18
[2021-09-23] MEDS: Albuterol 2.5 MG/3 ML VIAL.NEB. INHALATION (09:45)
[2021-09-23] MEDS: Mirabegron 50 MG TAB.ER.24H 100 MG PO (22:53)
[2021-09-23] MEDS: Atorvastatin Calcium 40 MG Tablet PO (22:54)
[2021-09-23] MEDS: Gabapentin 100 MG Capsule PO (22:54)
[2021-09-23] MEDS: Mirtazapine 15 MG Tablet 7.5 MG PO (22:54)
[2021-09-24] MEDS: Lacosamide 100 MG Tablet PO ×2 (06:31→17:04)
[2021-09-24] MEDS: Acetaminophen 500 MG Tablet 1000 MG PO ×3 (06:32→21:34)
[2021-09-24] MEDS: Pramipexole Di-HCl 0.5 MG Tablet PO ×3 (06:32→21:33)
[2021-09-24] MEDS: VORTIOXETINE HYDROBROMIDE 20 MG TABLET PO (06:32)
[2021-09-24] MEDS: Memantine Hydrochloride 10 MG Tablet PO ×2 (06:32→17:04)
[2021-09-24] MEDS: Menthol/Lanolin/Calamine/Znox 113 GM Tube 1 APPLIC TOPICAL ×2 (06:33→17:04)
[2021-09-24] MEDS: Levothyroxine 25 MCG TABLET PO (06:33)
--- NOTE | 2021-09-24 07:24 | NURSING ---
Did not void this am. Depends dry since hs care provided. Denies any discomfort. In no acute distress.
[2021-09-24] MEDS: Cholecalciferol (VIT D3) 25 MCG TABLET (1,000 UNITS) PO (09:02)
[2021-09-24] MEDS: Tolterodine Tartrate 4 MG CAP.SA PO (09:02)
[2021-09-24] MEDS: Potassium Chloride Oral Tablet 20 MEQ PO (09:03)
[2021-09-24 10:00] VITALS: PULSE 84; RESP 18; O2SAT 93
[2021-09-24 13:02] VITALS: PULSE 101; RESP 22; O2SAT 93
[2021-09-24] MEDS: Albuterol 2.5 MG/3 ML VIAL.NEB. INHALATION (13:02)
[2021-09-24 14:54] VITALS: BP 113/75; PULSE 103; RESP 18; TEMP 36.9; O2SAT 95
[2021-09-24] MEDS: Mirtazapine 15 MG Tablet 7.5 MG PO (21:33)
[2021-09-24] MEDS: Gabapentin 100 MG Capsule PO (21:34)
[2021-09-24] MEDS: Atorvastatin Calcium 40 MG Tablet PO (21:34)
[2021-09-24] MEDS: Mirabegron 50 MG TAB.ER.24H 100 MG PO (21:34)
--- NOTE | 2021-09-25 01:57 | NURSING ---
Pt checked, is dry at this time. Turned to Rt side, pillows under legs. Kpad readjusted to neck/upper back for comfort. HOB elevated. Denies further needs.
[2021-09-25] MEDS: Memantine Hydrochloride 10 MG Tablet PO ×2 (05:58→17:25)
[2021-09-25] MEDS: Levothyroxine 25 MCG TABLET PO (05:58)
[2021-09-25] MEDS: Acetaminophen 500 MG Tablet 1000 MG PO ×3 (05:58→22:53)
[2021-09-25] MEDS: Pramipexole Di-HCl 0.5 MG Tablet PO ×3 (05:58→22:53)
[2021-09-25] MEDS: VORTIOXETINE HYDROBROMIDE 20 MG TABLET PO (05:58)
[2021-09-25 06:00] VITALS: BP 125/82; PULSE 82; O2SAT 92
[2021-09-25] MEDS: Lacosamide 100 MG Tablet PO ×2 (06:00→17:22)
[2021-09-25] MEDS: Menthol/Lanolin/Calamine/Znox 113 GM Tube 1 APPLIC TOPICAL ×2 (06:03→17:25)
[2021-09-25 07:24] VITALS: O2SAT 95
[2021-09-25] MEDS: Tolterodine Tartrate 4 MG CAP.SA PO (08:13)
[2021-09-25] MEDS: Potassium Chloride Oral Tablet 20 MEQ PO (08:13)
[2021-09-25] MEDS: Cholecalciferol (VIT D3) 25 MCG TABLET (1,000 UNITS) PO (08:14)
[2021-09-25 10:20] VITALS: O2SAT 95
[2021-09-25 16:00] VITALS: BP 126/83; PULSE 91; RESP 16; TEMP 36.1; O2SAT 93
--- NOTE | 2021-09-25 17:18 | CASEMGMT ---
Social Work Met with to discuss DC plans. would like to have a few more days to therapy after she is out of isolation from COVID. IDT agreeable to DC 10/04. to transport. requesting [facility]. Referral made for PT/OT/SN. Notified [facility] of DC. No DME needs. Plan: DC home with and 10/03 aides 10/04, [facility] PT/OT/SN, Palliative Verna Eller, JORDY TORRESW
--- NOTE | 2021-09-25 20:03 | DS.PCM_ITS ---
Providers Date of Admission: 09/04/21 Primary Care Physician: Dr. Arun Ramos MD Consultations 09/19/21 13:22 Consult: Infectious Disease Routine Consulting Provider: Nicolás Chatterjee Reason for Consult: Covid EMERGENT Consult: No MD Notified: Yes Date Notified: 09/19/21 Time Notified: 13:22 Method of Notification: Verbal Reason For Visit: FAILURE TO THRIVE Diagnosis Discharge Diagnosis (1) COVID-19: Status: Acute Code(s): U07.1 - COVID-19 Medications at Discharge Home Medications lacosamide 100 mg tablet 100 mg PO BID 06/28/20 mirabegron 50 mg tablet,extended release 24 hr 100 mg PO QHS tablet 11/06/20 tolterodine 4 mg capsule,extended release 24 hr 4 mg PO DAILY cap 11/06/20 atorvastatin 40 mg PO QHS 03/08/21 levothyroxine [Synthroid] 25 mcg PO DAILY 03/08/21 PEP device #1 ea 05/09/21 memantine 10 mg tablet 10 mg PO BID 05/09/21 vortioxetine 5 mg tablet 20 mg PO DAILY 05/09/21 Probiotic Blend 1 cap PO DAILY 09/02/21 cholecalciferol (vitamin D3) [Vitamin D3] 25 mcg PO DAILY 09/02/21 gabapentin 100 mg PO QHS 09/04/21 albuterol sulfate 2.5 mg INHALATION Q6H PRN #0 ml 09/25/21 mirtazapine 7.5 mg PO QHS 30 Days #15 tab 09/25/21 potassium chloride [Klor-Con M20] 20 meq PO DAILYCM 30 Days #30 tab 09/25/21 pramipexole 0.5 mg PO TID 30 Days #90 tab 09/25/21 Hospital Course Operations None Procedures None Summary of Care Provided Minutes Spent on Discharge: 35 Hospital Course: 81 year old female with below past medical history hospitalized for urinary retention secondary to urinary tract infection, complicated by costochondritis, admitted to TCU with debility, here for rehabilitation, strengthening, prior to discharge home with . 09/19/2021 Positive covid19, Dr. Chatterjee treated with Remdesivir, Decadron, resident improved. Discharge home with , 10/03 aides 10/04/2021, [facility] PT/OT/SN, Palliative. Physical Exam Const alert and oriented x3 General Appearance: cooperative HEENT normocephalic Eyes PERRL and EOMs intact bilaterally Neck supple, no JVD and no carotid bruits Resp normal respiratory effort, normal air movement and clear to auscultation bilaterally Cardio regular rate and regular rhythm GI normal to inspection, nondistended, normoactive bowel sounds, non-tender and non-distended Extremity normal capillary refill General Extremity: Negative for edema Skin no rashes or lesions noted General Skin Exam: no breakdown Psych affect normal Appearance: appropriate Weight / BMI Weight Weight: 59.194 kg Body Mass Index (BMI) 27.0 ABG / Lab / Microbiology Data Result Diagrams: 09/21/21 06:10 09/21/21 06:10 Microbiology: Microbiology 09/18/21 22:08 Urine Catheter - Catheter Urine Culture - Final Lactobacillus gasseri 09/19/21 11:18 Nasal Secretion SARS-CoV-2 Antigen (Rapid) - Final SARS-CoV-2 (COVID 19) 09/13/21 13:55 Nasal Secretion SARS-CoV-2 Antigen (Rapid) - Final 09/06/21 12:24 Nasal Secretion SARS-CoV-2 Antigen (Rapid) - Final D/C Instructions Discharge Diet: No restrictions Discharge Activity: Return to Normal Activity, May Shower and Use Walker Weight Bearing Status: Weight bearing as tolerated Call your doctor if you observe: Fever of 101 or Higher, Inability to urinate, Inability to have a bowel movement, Shortness of breath, Dizziness, Fainting spells, Swelling in the ankles, Chest pain and Uncontrolled pain Additional Instructions: Discharge home with , 24 aides 10/04/2021, [facility] PT/OT/SN, Palliative. Meaningful Use Info Meaningful Use Diagnoses (Choose all that apply): None applicable Discharge Plan Admission Admit Date/Time: 09/04/21 11:22 Primary Reason for Your Visit: Debility. Attending Provider: Arun Ramos Chi Primary Care Provider: Arun Ramos Chi Consulting Providers: Nicolás Chatterjee Instructions Additional Instructions / Restrictions: Discharge home with , 247 aides 10/04/2021, [facility] PT/OT/SN, Palliative. Discharge Orders/Prescriptions Prescriptions: New albuterol sulfate 2.5 mg /3 mL (0.083 %) Solution For Nebulization 2.5 mg inhalation Q6H PRN (Reason: Sob &/Or Wheezing) Qty: 0 RF: 0 pramipexole 0.5 mg Tablet 0.5 mg PO TID 30 Days Qty: 90 RF: 0 potassium chloride [Klor-Con M20] 20 mEq Tablet,Er Particles/Crystals 20 meq PO DAILYCM 30 Days Qty: 30 RF: 0 mirtazapine 15 mg Tablet 7.5 mg PO QHS 30 Days Qty: 15 RF: 0 Continued Vimpat 100 mg tablet 100 mg PO BID RF: 0 Myrbetriq 50 mg tablet extended release 24 hr 100 mg PO QHS RF: 0 tolterodine [Detrol LA] 4 mg capsule,extended release 24hr 4 mg PO DAILY RF: 0 Trintellix 5 mg tablet 20 mg PO DAILY RF: 0 memantine 10 mg tablet 10 mg PO BID RF: 0 atorvastatin 40 mg tablet 40 mg PO QHS RF: 0 levothyroxine [Synthroid] 25 mcg Tablet 25 mcg PO DAILY RF: 0 cholecalciferol (vitamin D3) [Vitamin D3] 25 mcg (1,000 unit) Capsule 25 mcg PO DAILY RF: 0 Probiotic Blend 2 billion cell-50 mg Capsule 1 cap PO DAILY RF: 0 gabapentin 100 mg capsule 100 mg PO QHS RF: 0 Discontinued albuterol sulfate 2.5 mg /3 mL (0.083 %) solution for nebulization 2.5 mg continuous nebulization ONCE Qty: 1 RF: 0 pramipexole [Mirapex] 0.25 mg tablet 0.5 mg PO TID RF: 0 aspirin 81 mg tablet,delayed release (DR/EC) 81 mg PO DAILY RF: 0 hydrocodone-acetaminophen 1 TABLET tablet 1 tab PO Q6H PRN PRN (Reason: Pain) 3 Days Qty: 12 RF: 0 cranberry 500 mg Capsule 500 mg PO DAILY RF: 0 d-mannose 500 mg Capsule 500 mg PO DAILY RF: 0 cefdinir 300 mg capsule 300 mg PO BID RF: 0 Eliquis 5 mg tablet 5 mg PO BID RF: 0 No Action (DME) PEP device See Rx Instructions .ROUTE .MEDSUPPLY Qty: 1 RF: 0 Referrals / Follow Up: Arun Ramos Chi, MD [Primary Care Provider] - Disposition Disposition (needs filled in before D/C Order can be placed): Home Health Service
[2021-09-25 22:00] VITALS: PULSE 91; RESP 18; O2SAT 91
[2021-09-25] MEDS: Atorvastatin Calcium 40 MG Tablet PO (22:53)
[2021-09-25] MEDS: Mirabegron 50 MG TAB.ER.24H 100 MG PO (22:53)
[2021-09-25] MEDS: Mirtazapine 15 MG Tablet 7.5 MG PO (22:54)
[2021-09-25] MEDS: Gabapentin 100 MG Capsule PO (22:55)
--- NOTE | 2021-09-26 00:41 | NURSING ---
Patient assisted to bathroom, incontinent of urine. Tiffany-care performed, clean brief and pajama bottoms donned. Patient assisted to bed. C/o some shortness of breath, SpO2 91% on RA. O2 2L/min via nasal cannula applied. Patient does have non-productive cough. States she feels congested. Will continue to monitor.
[2021-09-26 05:54] LABS: Absolute Lymphocyte Count 1.28 X10^3/uL (0.83-4.51); Absolute Neutrophil Count 2.7 X10^3/uL (2.0-7.7); Basophil# 0.02 X10^3/uL; Basophil% 0.5 % (0-1); Eosinophil# 0.07 X10^3/uL; Eosinophils% 1.6 % (0-5); Hematocrit 38.2 % (37-47); Lymphocyte # 1.28 X10^3/ul (0.83-4.51); Lymphocyte % 29.6 % (19-41); Mean Corpuscular Hgb 31.5 pg (27.0-32.0); Mean Corpuscular Volume 92.5 fL (81-99); Mean Platelet Vol. 9.4 fl (6.2-12.0); Monocyte# 0.26 X10^3/uL; NRBC Flagged by Analyzer 0 % (0-5); Neutrophil # 2.67 X10^3/uL (2.7-7.7); Neutrophil % 61.8 % (47-70); Platelet Count 178 K/mm3 (150-450); RBC Distribution Width CV 13.4 % (11.6-14.6); RBC Distribution Width SD 45.4 fl (35.1-43.9); Red Blood Count 4.13 M/mm3 (4.2-5.4); White Blood Count 4.3 K/mm3 (4.4-11.0)
[2021-09-26] MEDS: Memantine Hydrochloride 10 MG Tablet PO ×2 (06:31→17:45)
[2021-09-26] MEDS: Acetaminophen 500 MG Tablet 1000 MG PO ×3 (06:31→21:44)
[2021-09-26] MEDS: Lacosamide 100 MG Tablet PO ×2 (06:31→17:47)
[2021-09-26] MEDS: Levothyroxine 25 MCG TABLET PO (06:31)
[2021-09-26] MEDS: Pramipexole Di-HCl 0.5 MG Tablet PO ×3 (06:31→21:43)
[2021-09-26] MEDS: VORTIOXETINE HYDROBROMIDE 20 MG TABLET PO (06:32)
[2021-09-26] MEDS: Menthol/Lanolin/Calamine/Znox 113 GM Tube 1 APPLIC TOPICAL ×2 (06:35→17:49)
[2021-09-26 06:38] LABS: Anion Gap 7 (5-15); BUN 21 mg/dL (7-18); BUN/Creat Ratio 35.9 RATIO (10-20); Calcium,Total 8.4 mg/dL (8.5-10.1); Chloride 108 mmol/L (98-107); Creatinine, Serum 0.58 mg/dL (0.55-1.02); EST Glomerular Filtration Rate 106 mL/min (>60); Est Glom Filt Rate - Afr Amer 128 mL/min (>60); Estimated Creatinine Clearance 42.63 ml/min; Glucose 97 mg/dL (74-106); Potassium 3.4 mmol/L (3.5-5.1); Sodium Level 140 mmol/L (136-145)
--- NOTE | 2021-09-26 07:15 | MDS.RN ---
Information for the IPA mds assessment was obtained from review of the medical record, interview of resident, staff, and direct observation of resident's care. [facility] information systems, billing dept. and [facility] aware PDPM codes not generated with finalized assessment.
[2021-09-26] MEDS: Potassium Chloride Oral Tablet 20 MEQ PO ×2 (08:12→17:45)
[2021-09-26] MEDS: Tolterodine Tartrate 4 MG CAP.SA PO (08:12)
[2021-09-26] MEDS: Cholecalciferol (VIT D3) 25 MCG TABLET (1,000 UNITS) PO (08:13)
[2021-09-26] MEDS: guaiFENesin 600 MG Tablet PO ×2 (08:15→17:45)
--- NOTE | 2021-09-26 08:15 | RAD_ITS ---
STUDY: X-RAY CHEST REASON FOR EXAM: Female, 81 years old. Cough TECHNIQUE: Single AP portable view of the chest. COMPARISON: Comparison is made with prior study dated 09/18/2021. FINDINGS: Surgical clips are seen in the left axillary region. Mild degree of increased markings with confluence in the posterior segment of the left lower lobe suggestive of early infiltrate. There is blunting of the right cost phrenic angle. Normal size heart. Normal mediastinum and kamryn. Normal visualized pulmonary arteries. There is atherosclerotic tortuosity of the aortic arch and descending thoracic aorta. There are diffuse degenerative changes of the visualized thoracic spine. Prior vertebroplasty of the T12 vertebrae. Normal visualized ribs, clavicles, and shoulders. Hiatal hernia. RAD/Chest 1 View (Portable) IMPRESSION: Findings suggestive of a mild infiltrate in the left lower lobe. Electronically Signed: Sam Mac MD at 12:03 EST ,
[2021-09-26 09:06] VITALS: O2SAT 91
[2021-09-26 14:54] VITALS: O2SAT 93
[2021-09-26 17:53] VITALS: BP 123/78; PULSE 94; RESP 28; TEMP 35.9
[2021-09-26] MEDS: Mirtazapine 15 MG Tablet 7.5 MG PO (21:44)
[2021-09-26] MEDS: Gabapentin 100 MG Capsule PO (21:44)
[2021-09-26] MEDS: Mirabegron 50 MG TAB.ER.24H 100 MG PO (21:44)
[2021-09-26] MEDS: Atorvastatin Calcium 40 MG Tablet PO (21:45)
[2021-09-26] MEDS: Azithromycin 250 MG Tablet 500 MG PO (21:45)
[2021-09-26] MEDS: Cefdinir 300 MG Capsule PO (21:46)
[2021-09-26 22:00] VITALS: PULSE 88; O2SAT 93
[2021-09-27 00:44] VITALS: PULSE 88; O2SAT 95
[2021-09-27] MEDS: Acetaminophen 500 MG Tablet 1000 MG PO ×3 (06:39→19:58)
[2021-09-27] MEDS: VORTIOXETINE HYDROBROMIDE 20 MG TABLET PO (06:39)
[2021-09-27] MEDS: guaiFENesin 600 MG Tablet PO ×2 (06:39→17:39)
[2021-09-27] MEDS: Menthol/Lanolin/Calamine/Znox 113 GM Tube 1 APPLIC TOPICAL ×2 (06:39→17:40)
[2021-09-27] MEDS: Cefdinir 300 MG Capsule PO ×2 (06:39→17:39)
[2021-09-27] MEDS: Memantine Hydrochloride 10 MG Tablet PO ×2 (06:39→17:39)
[2021-09-27] MEDS: Levothyroxine 25 MCG TABLET PO (06:39)
[2021-09-27] MEDS: Pramipexole Di-HCl 0.5 MG Tablet PO ×3 (06:39→19:59)
[2021-09-27] MEDS: Lacosamide 100 MG Tablet PO ×2 (06:39→17:39)
[2021-09-27] MEDS: Azithromycin 250 MG Tablet PO (08:17)
[2021-09-27] MEDS: Cholecalciferol (VIT D3) 25 MCG TABLET (1,000 UNITS) PO (08:17)
[2021-09-27] MEDS: Potassium Chloride Oral Tablet 20 MEQ PO ×2 (08:17→17:39)
[2021-09-27] MEDS: Tolterodine Tartrate 4 MG CAP.SA PO (08:17)
[2021-09-27 10:01] VITALS: BP 123/78; PULSE 97; RESP 20; TEMP 36.6; O2SAT 93
--- NOTE | 2021-09-27 10:03 | NURSING ---
Pt with SOB with exertion, being treated for pneumonia. Resp therapy notified for a breathing tx. pt able to brush teeth, pt washed up with soap and water on toilet. some BM noted, smearing when cleaning pt up. sitting in recliner chair, legs elevated. call light in reach. alarm in place. Did note that pt having more difficulty following instructions for transfers and more time needed for processing commands.
[2021-09-27 10:37] VITALS: PULSE 89; RESP 20
[2021-09-27] MEDS: Albuterol 2.5 MG/3 ML VIAL.NEB. INHALATION (10:37)
[2021-09-27] MEDS: Carbidopa/Levodopa 25/100 Tablet PO (17:44)
[2021-09-27] MEDS: Mirabegron 50 MG TAB.ER.24H 100 MG PO (19:59)
[2021-09-27] MEDS: Atorvastatin Calcium 40 MG Tablet PO (19:59)
[2021-09-27] MEDS: Gabapentin 100 MG Capsule PO (19:59)
[2021-09-27] MEDS: Mirtazapine 15 MG Tablet 7.5 MG PO (19:59)
[2021-09-27] MEDS: Benzonatate 100 MG Capsule PO (20:30)
[2021-09-27 20:40] VITALS: PULSE 93; RESP 18; O2SAT 93
[2021-09-27 20:53] VITALS: PULSE 92; O2SAT 93
[2021-09-28] MEDS: Menthol/Lanolin/Calamine/Znox 113 GM Tube 1 APPLIC TOPICAL ×2 (07:27→17:02)
[2021-09-28] MEDS: Memantine Hydrochloride 10 MG Tablet PO ×2 (07:27→17:02)
[2021-09-28] MEDS: Levothyroxine 25 MCG TABLET PO (07:28)
[2021-09-28] MEDS: guaiFENesin 600 MG Tablet PO ×2 (07:28→17:02)
[2021-09-28] MEDS: Carbidopa/Levodopa 25/100 Tablet PO ×3 (07:28→17:01)
[2021-09-28] MEDS: Lacosamide 100 MG Tablet PO ×2 (07:28→17:02)
[2021-09-28] MEDS: VORTIOXETINE HYDROBROMIDE 20 MG TABLET PO (07:28)
[2021-09-28] MEDS: Cefdinir 300 MG Capsule PO ×2 (07:28→17:02)
[2021-09-28] MEDS: Pramipexole Di-HCl 0.5 MG Tablet PO ×3 (07:28→22:20)
[2021-09-28] MEDS: Acetaminophen 500 MG Tablet 1000 MG PO ×3 (07:28→22:19)
[2021-09-28] MEDS: Potassium Chloride Oral Tablet 20 MEQ PO ×2 (09:32→17:02)
[2021-09-28] MEDS: Tolterodine Tartrate 4 MG CAP.SA PO (09:32)
[2021-09-28] MEDS: Azithromycin 250 MG Tablet PO (09:33)
[2021-09-28] MEDS: Cholecalciferol (VIT D3) 25 MCG TABLET (1,000 UNITS) PO (09:33)
[2021-09-28] MEDS: Benzonatate 100 MG Capsule PO (09:47)
[2021-09-28 10:00] VITALS: PULSE 87; RESP 18; O2SAT 94
[2021-09-28] MEDS: Albuterol 2.5 MG/3 ML VIAL.NEB. INHALATION (10:07)
[2021-09-28 10:08] VITALS: PULSE 77; RESP 21
[2021-09-28 13:35] VITALS: BP 127/76; PULSE 103; RESP 20; TEMP 36.6; O2SAT 90
[2021-09-28] MEDS: Mirabegron 50 MG TAB.ER.24H 100 MG PO (22:19)
[2021-09-28] MEDS: Atorvastatin Calcium 40 MG Tablet PO (22:19)
[2021-09-28] MEDS: Mirtazapine 15 MG Tablet 7.5 MG PO (22:20)
[2021-09-28] MEDS: Gabapentin 100 MG Capsule PO (22:22)
[2021-09-29 05:12] VITALS: BP 130/78; PULSE 81; O2SAT 96
[2021-09-29] MEDS: Memantine Hydrochloride 10 MG Tablet PO ×2 (05:12→17:21)
[2021-09-29] MEDS: guaiFENesin 600 MG Tablet PO ×2 (05:12→17:21)
[2021-09-29] MEDS: Pramipexole Di-HCl 0.5 MG Tablet PO ×3 (05:12→22:07)
[2021-09-29] MEDS: Levothyroxine 25 MCG TABLET PO (05:12)
[2021-09-29] MEDS: Cefdinir 300 MG Capsule PO ×2 (05:12→17:21)
[2021-09-29] MEDS: VORTIOXETINE HYDROBROMIDE 20 MG TABLET PO (05:13)
[2021-09-29] MEDS: Acetaminophen 500 MG Tablet 1000 MG PO ×3 (05:13→22:05)
[2021-09-29] MEDS: Lacosamide 100 MG Tablet PO ×2 (05:15→17:22)
[2021-09-29] MEDS: Carbidopa/Levodopa 25/100 Tablet PO ×3 (05:17→17:21)
[2021-09-29] MEDS: Menthol/Lanolin/Calamine/Znox 113 GM Tube 1 APPLIC TOPICAL ×2 (05:26→17:22)
[2021-09-29 06:45] VITALS: O2SAT 95
[2021-09-29] MEDS: Potassium Chloride Oral Tablet 20 MEQ PO ×2 (08:34→17:21)
[2021-09-29] MEDS: Cholecalciferol (VIT D3) 25 MCG TABLET (1,000 UNITS) PO (08:34)
[2021-09-29] MEDS: Tolterodine Tartrate 4 MG CAP.SA PO (08:35)
[2021-09-29] MEDS: Azithromycin 250 MG Tablet PO (10:51)
[2021-09-29 14:40] VITALS: BP 127/80; PULSE 89; RESP 16; TEMP 36.3; O2SAT 92
[2021-09-29] MEDS: Atorvastatin Calcium 40 MG Tablet PO (22:05)
[2021-09-29] MEDS: Mirtazapine 15 MG Tablet 7.5 MG PO (22:05)
[2021-09-29] MEDS: Mirabegron 50 MG TAB.ER.24H 100 MG PO (22:06)
[2021-09-29] MEDS: Gabapentin 100 MG Capsule PO (22:08)
[2021-09-30] MEDS: Lacosamide 100 MG Tablet PO ×2 (05:29→17:30)
[2021-09-30] MEDS: Acetaminophen 500 MG Tablet 1000 MG PO ×3 (05:29→19:54)
[2021-09-30] MEDS: Levothyroxine 25 MCG TABLET PO (05:30)
[2021-09-30] MEDS: Carbidopa/Levodopa 25/100 Tablet PO ×3 (05:30→17:26)
[2021-09-30] MEDS: Cefdinir 300 MG Capsule PO ×2 (05:30→17:28)
[2021-09-30] MEDS: guaiFENesin 600 MG Tablet PO ×2 (05:31→17:27)
[2021-09-30] MEDS: Menthol/Lanolin/Calamine/Znox 113 GM Tube 1 APPLIC TOPICAL ×2 (05:31→17:34)
[2021-09-30] MEDS: Memantine Hydrochloride 10 MG Tablet PO ×2 (05:31→17:27)
[2021-09-30] MEDS: Pramipexole Di-HCl 0.5 MG Tablet PO ×3 (05:31→19:55)
[2021-09-30] MEDS: VORTIOXETINE HYDROBROMIDE 20 MG TABLET PO (05:31)
[2021-09-30 06:39] VITALS: O2SAT 92
[2021-09-30] MEDS: Tolterodine Tartrate 4 MG CAP.SA PO (07:58)
[2021-09-30] MEDS: Cholecalciferol (VIT D3) 25 MCG TABLET (1,000 UNITS) PO (07:58)
[2021-09-30] MEDS: Potassium Chloride Oral Tablet 20 MEQ PO ×2 (07:58→17:27)
[2021-09-30] MEDS: Azithromycin 250 MG Tablet PO (10:55)
[2021-09-30 16:23] VITALS: BP 131/94; PULSE 96; RESP 22; TEMP 36.6; O2SAT 92
[2021-09-30] MEDS: Mirabegron 50 MG TAB.ER.24H 100 MG PO (19:55)
[2021-09-30] MEDS: Mirtazapine 15 MG Tablet 7.5 MG PO (19:55)
[2021-09-30] MEDS: Atorvastatin Calcium 40 MG Tablet PO (19:55)
[2021-09-30] MEDS: Gabapentin 100 MG Capsule PO (19:56)
[2021-10-01] MEDS: Memantine Hydrochloride 10 MG Tablet PO ×2 (06:28→17:01)
[2021-10-01] MEDS: guaiFENesin 600 MG Tablet PO ×2 (06:28→17:01)
[2021-10-01] MEDS: Carbidopa/Levodopa 25/100 Tablet PO ×3 (06:28→16:56)
[2021-10-01] MEDS: VORTIOXETINE HYDROBROMIDE 20 MG TABLET PO (06:28)
[2021-10-01] MEDS: Levothyroxine 25 MCG TABLET PO (06:28)
[2021-10-01] MEDS: Pramipexole Di-HCl 0.5 MG Tablet PO ×3 (06:28→19:48)
[2021-10-01] MEDS: Acetaminophen 500 MG Tablet 1000 MG PO ×3 (06:28→19:48)
[2021-10-01] MEDS: Menthol/Lanolin/Calamine/Znox 113 GM Tube 1 APPLIC TOPICAL ×2 (06:29→19:51)
[2021-10-01] MEDS: Cefdinir 300 MG Capsule PO ×2 (06:29→17:01)
[2021-10-01] MEDS: Lacosamide 100 MG Tablet PO ×2 (06:33→17:01)
[2021-10-01 08:00] VITALS: O2SAT 92
[2021-10-01] MEDS: Potassium Chloride Oral Tablet 20 MEQ PO ×2 (09:43→16:56)
[2021-10-01] MEDS: Tolterodine Tartrate 4 MG CAP.SA PO (09:43)
[2021-10-01] MEDS: Cholecalciferol (VIT D3) 25 MCG TABLET (1,000 UNITS) PO (09:43)
[2021-10-01] MEDS: Azithromycin 250 MG Tablet PO (09:44)
[2021-10-01 10:00] VITALS: PULSE 98; RESP 14; O2SAT 92
[2021-10-01 14:10] VITALS: BP 134/88; PULSE 102; RESP 17; TEMP 36.6; O2SAT 94
[2021-10-01] MEDS: Atorvastatin Calcium 40 MG Tablet PO (19:47)
[2021-10-01] MEDS: Mirtazapine 15 MG Tablet 7.5 MG PO (19:47)
[2021-10-01] MEDS: Mirabegron 50 MG TAB.ER.24H 100 MG PO (19:47)
[2021-10-01] MEDS: Gabapentin 100 MG Capsule PO (19:48)
[2021-10-02] MEDS: Acetaminophen 500 MG Tablet 1000 MG PO ×3 (06:13→20:29)
[2021-10-02] MEDS: Lacosamide 100 MG Tablet PO ×2 (06:13→17:07)
[2021-10-02] MEDS: Menthol/Lanolin/Calamine/Znox 113 GM Tube 1 APPLIC TOPICAL ×2 (06:13→17:07)
[2021-10-02] MEDS: VORTIOXETINE HYDROBROMIDE 20 MG TABLET PO (06:14)
[2021-10-02] MEDS: guaiFENesin 600 MG Tablet PO ×2 (06:14→17:07)
[2021-10-02] MEDS: Memantine Hydrochloride 10 MG Tablet PO ×2 (06:14→17:07)
[2021-10-02] MEDS: Pramipexole Di-HCl 0.5 MG Tablet PO ×3 (06:14→20:30)
[2021-10-02] MEDS: Levothyroxine 25 MCG TABLET PO (06:14)
[2021-10-02] MEDS: Carbidopa/Levodopa 25/100 Tablet PO ×3 (06:14→17:07)
[2021-10-02] MEDS: Cefdinir 300 MG Capsule PO ×2 (06:16→17:07)
[2021-10-02] MEDS: Potassium Chloride Oral Tablet 20 MEQ PO ×2 (08:25→17:07)
[2021-10-02] MEDS: Cholecalciferol (VIT D3) 25 MCG TABLET (1,000 UNITS) PO (08:25)
[2021-10-02] MEDS: Tolterodine Tartrate 4 MG CAP.SA PO (08:25)
[2021-10-02 09:04] VITALS: O2SAT 90
[2021-10-02 13:31] VITALS: BP 131/88; PULSE 63; RESP 18; TEMP 36.3; O2SAT 90
--- NOTE | 2021-10-02 15:42 | NURSING ---
Spouse requesting to make all appointments for patient.
[2021-10-02] MEDS: Atorvastatin Calcium 40 MG Tablet PO (20:29)
[2021-10-02] MEDS: Gabapentin 100 MG Capsule PO (20:29)
[2021-10-02] MEDS: Mirabegron 50 MG TAB.ER.24H 100 MG PO (20:29)
[2021-10-02] MEDS: Mirtazapine 15 MG Tablet 7.5 MG PO (20:30)
[2021-10-03] MEDS: Pramipexole Di-HCl 0.5 MG Tablet PO ×3 (05:12→21:42)
[2021-10-03] MEDS: Acetaminophen 500 MG Tablet 1000 MG PO ×3 (05:12→21:43)
[2021-10-03] MEDS: Menthol/Lanolin/Calamine/Znox 113 GM Tube 1 APPLIC TOPICAL ×2 (05:12→17:16)
[2021-10-03] MEDS: Levothyroxine 25 MCG TABLET PO (05:13)
[2021-10-03] MEDS: guaiFENesin 600 MG Tablet PO (05:13)
[2021-10-03] MEDS: Memantine Hydrochloride 10 MG Tablet PO ×2 (05:13→17:16)
[2021-10-03] MEDS: Cefdinir 300 MG Capsule PO ×2 (05:13→17:16)
[2021-10-03] MEDS: Carbidopa/Levodopa 25/100 Tablet PO ×3 (05:13→17:16)
[2021-10-03] MEDS: VORTIOXETINE HYDROBROMIDE 20 MG TABLET PO (05:13)
[2021-10-03] MEDS: Lacosamide 100 MG Tablet PO ×2 (05:18→17:16)
[2021-10-03 05:47] LABS: Absolute Lymphocyte Count 1.64 X10^3/uL (0.83-4.51); Absolute Neutrophil Count 4.5 X10^3/uL (2.0-7.7); Basophil# 0.04 X10^3/uL; Basophil% 0.6 % (0-1); Eosinophils% 1.5 % (0-5); Hematocrit 38.3 % (37-47); Hemoglobin 12.5 g/dL (12.0-15.0); Lymphocyte # 1.64 X10^3/ul (0.83-4.51); Lymphocyte % 24.4 % (19-41); Mean Corp Hgb Conc 32.6 g/dL (32-36); Mean Corpuscular Hgb 30.3 pg (27.0-32.0); Mean Platelet Vol. 9.7 fl (6.2-12.0); Monocyte# 0.44 X10^3/uL; Monocyte% 6.5 % (0-10); NRBC Flagged by Analyzer 0 % (0-5); Neutrophil # 4.48 X10^3/uL (2.7-7.7); Neutrophil % 66.6 % (47-70); Platelet Count 197 K/mm3 (150-450); RBC Distribution Width CV 13.7 % (11.6-14.6); RBC Distribution Width SD 46.9 fl (35.1-43.9); Red Blood Count 4.12 M/mm3 (4.2-5.4); White Blood Count 6.7 K/mm3 (4.4-11.0)
[2021-10-03 06:09] LABS: Anion Gap 2 (5-15); BUN 18 mg/dL (7-18); BUN/Creat Ratio 26.5 RATIO (10-20); Calcium,Total 8.4 mg/dL (8.5-10.1); Chloride 111 mmol/L (98-107); Creatinine, Serum 0.68 mg/dL (0.55-1.02); EST Glomerular Filtration Rate 89 mL/min (>60); Est Glom Filt Rate - Afr Amer 107 mL/min (>60); Estimated Creatinine Clearance 41.32 ml/min; Glucose 99 mg/dL (74-106); Sodium Level 139 mmol/L (136-145)
[2021-10-03] MEDS: Tolterodine Tartrate 4 MG CAP.SA PO (07:50)
[2021-10-03] MEDS: Potassium Chloride Oral Tablet 20 MEQ PO ×2 (07:50→17:16)
[2021-10-03] MEDS: Cholecalciferol (VIT D3) 25 MCG TABLET (1,000 UNITS) PO (07:50)
--- NOTE | 2021-10-03 11:57 | CASEMGMT ---
Social Work PHQ-9(0) and BIMS(4) completed this date. [place]
[2021-10-03 15:17] VITALS: O2SAT 90
[2021-10-03 15:28] VITALS: BP 140/79; PULSE 94; RESP 17; TEMP 36.9; O2SAT 92
[2021-10-03] MEDS: Mirabegron 50 MG TAB.ER.24H 100 MG PO (21:41)
[2021-10-03] MEDS: Atorvastatin Calcium 40 MG Tablet PO (21:42)
[2021-10-03] MEDS: Mirtazapine 15 MG Tablet 7.5 MG PO (21:42)
[2021-10-03] MEDS: Gabapentin 100 MG Capsule PO (21:43)
[2021-10-04] MEDS: Pramipexole Di-HCl 0.5 MG Tablet PO (06:05)
[2021-10-04] MEDS: Menthol/Lanolin/Calamine/Znox 113 GM Tube 1 APPLIC TOPICAL (06:05)
[2021-10-04] MEDS: Levothyroxine 25 MCG TABLET PO (06:06)
[2021-10-04] MEDS: Memantine Hydrochloride 10 MG Tablet PO (06:06)
[2021-10-04] MEDS: Acetaminophen 500 MG Tablet 1000 MG PO (06:06)
[2021-10-04] MEDS: VORTIOXETINE HYDROBROMIDE 20 MG TABLET PO (06:06)
[2021-10-04] MEDS: Lacosamide 100 MG Tablet PO (06:19)
[2021-10-04 06:22] VITALS: BP 141/78; PULSE 72; RESP 18; TEMP 36.5; O2SAT 91
[2021-10-04 06:50] VITALS: O2SAT 92
[2021-10-04] MEDS: Magnesium Citrate 300 ML PO (09:04)
[2021-10-04] MEDS: Cholecalciferol (VIT D3) 25 MCG TABLET (1,000 UNITS) PO (09:07)
[2021-10-04] MEDS: Potassium Chloride Oral Tablet 20 MEQ PO (09:07)
[2021-10-04] MEDS: Tolterodine Tartrate 4 MG CAP.SA PO (09:07)
[2021-10-04] MEDS: Bisacodyl 5 MG Tablet 10 MG PO (10:24)
--- NOTE | 2021-10-04 10:26 | NURSING ---
Pt unable to drink mag citrate. Pt given PRN Dulcolax will continue to monitor.
[2021-10-04 11:45] VITALS: BP 134/80; PULSE 90; RESP 20; TEMP 36.3; O2SAT 92
== END 2021-10-04 11:45 | disposition home health service (06) | DRG 689 ==
PROVIDERS: Internal Medicine Infectious Disease; Admitting Provider Family Medicine Geriatric Medicine; PCP Family Medicine Geriatric Medicine; Visit Provider Family Medicine Geriatric Medicine
DX: N39.0 Urinary tract infection, site not specified (principal); U07.1 COVID-19; J18.9 Pneumonia, unspecified organism; F01.50 Vascular dementia, unspecified severity, without behavioral disturbance, psychotic disturbance, mood disturbance, and anxiety; G40.909 Epilepsy, unspecified, not intractable, without status epilepticus; E03.9 Hypothyroidism, unspecified; E78.5 Hyperlipidemia, unspecified; G25.81 Restless legs syndrome; G62.9 Polyneuropathy, unspecified; E55.9 Vitamin D deficiency, unspecified; I10 Essential (primary) hypertension; K21.9 Gastro-esophageal reflux disease without esophagitis; I25.2 Old myocardial infarction; W18.11XD Fall from or off toilet without subsequent striking against object, subsequent encounter; J45.909 Unspecified asthma, uncomplicated; M48.54XD Collapsed vertebra, not elsewhere classified, thoracic region, subsequent encounter for fracture with routine healing; S22.31XD Fracture of one rib, right side, subsequent encounter for fracture with routine healing; F32.A Depression, unspecified; N32.81 Overactive bladder; Z79.01 Long term (current) use of anticoagulants; M94.0 Chondrocostal junction syndrome [Tietze]; Z79.899 Other long term (current) drug therapy; Z79.82 Long term (current) use of aspirin; Z86.711 Personal history of pulmonary embolism
CPT/HCPCS: 36415; 71045; 71046; 80048; 80053; 80076; 81001; 85025; 85027; 87077; 87086; 87088; 87426; 92523; 92610; 94640; 97110; 97116; 97162; 97166; 97530; 97535; 97802; J7050; A4216; J0248

== ENCOUNTER 2021-10-05 13:14 | Observation (INO) | payer MEDICARE, OTHER, SELFPAY ==
[2021-10-05] VITALS (7 sets, daily range): BP systolic 129–147; BP diastolic 84–97; PULSE 89–94; RESP 16–20; TEMP 36.4–36.9; O2SAT 87–95; BMI 26.9; BMI 24.8
--- NOTE | 2021-10-05 14:08 | EKG12_ITS ---
Test Reason : WEAKNESS Blood Pressure : / mmHG Vent. Rate : 093 BPM Atrial Rate : 093 BPM P-R Int : 186 ms QRS Dur : 074 ms QT Int : 364 ms P-R-T Axes : 031 -27 079 degrees QTc Int : 452 ms Normal sinus rhythm Inferior infarct , age undetermined Anterolateral infarct , age undetermined Abnormal ECG Confirmed by VIANEY COHEN, VIRAJ ([id number]), research editor MARNIE VIZCARRA ([id number]) on 10/10/2021 12:32:35 P M Referred By: SU Confirmed By:JERRY WINTERS MD
[2021-10-05 14:49] LABS: Absolute Lymphocyte Count 1.71 X10^3/uL (0.83-4.51); Absolute Neutrophil Count 6.2 X10^3/uL (2.0-7.7); Basophil# 0.04 X10^3/uL; Basophil% 0.5 % (0-1); Eosinophil# 0.05 X10^3/uL; Eosinophils% 0.6 % (0-5); Hematocrit 40.6 % (37-47); Hemoglobin 13.3 g/dL (12.0-15.0); Lymphocyte # 1.71 X10^3/ul (0.83-4.51); Mean Corp Hgb Conc 32.8 g/dL (32-36); Mean Corpuscular Hgb 30.4 pg (27.0-32.0); Mean Corpuscular Volume 92.9 fL (81-99); Monocyte# 0.51 X10^3/uL; NRBC Flagged by Analyzer 0 % (0-5); Neutrophil # 6.18 X10^3/uL (2.7-7.7); Neutrophil % 72.3 % (47-70); Platelet Count 213 K/mm3 (150-450); RBC Distribution Width CV 13.8 % (11.6-14.6); RBC Distribution Width SD 46.9 fl (35.1-43.9); Red Blood Count 4.37 M/mm3 (4.2-5.4); White Blood Count 8.5 K/mm3 (4.4-11.0)
--- NOTE | 2021-10-05 14:50 | RAD_ITS ---
STUDY: X-RAY CHEST REASON FOR EXAM: Female, 81 years old. Dyspnea TECHNIQUE: Single AP portable view of the chest. COMPARISON: Comparison is made with prior study dated 09/26/2021. FINDINGS: EKG electrodes are seen. Surgical clips are seen in the left axillary region. Stable mild increased markings in the lower lobes suggestive of atelectasis and/or scarring. There is blunting of the left costo phrenic angle. Normal size heart. Normal mediastinum and kamryn. Normal visualized pulmonary arteries. There is atherosclerotic tortuosity of the aortic arch and descending thoracic aorta. There is demineralization of the osseous structures. Multilevel kyphoplasty of the lower thoracic and upper lumbar spine. Normal visualized ribs, clavicles, and shoulders. There is no demonstrated abnormality of the visualized soft tissue structures of the upper abdomen. RAD/Chest 1 View (Portable) IMPRESSION: Stable increased markings at the lung bases suggestive of early atelectasis and/or scarring slightly worse on the left side with blunting of the left costophrenic angle. Electronically Signed: Sam Mac MD at 15:14 EST ,
[2021-10-05 15:12] LABS: ALB/GLOB Ratio 0.8 RATIO (0.9-2.4); AST(SGOT) 12 U/L (15-37); Alanine Aminotransfer ALT/SGPT 16 U/L (13-56); Alkaline Phosphatase 139 U/L (45-117); Anion Gap 7 (5-15); BUN 18 mg/dL (7-18); BUN/Creat Ratio 25.7 RATIO (10-20); Calcium,Total 8.8 mg/dL (8.5-10.1); Chloride 108 mmol/L (98-107); EST Glomerular Filtration Rate 86 mL/min (>60); Est Glom Filt Rate - Afr Amer 104 mL/min (>60); Estimated Creatinine Clearance 43.64 ml/min; Globulin 3.9 g/dL (2.2-4.2); Glucose 99 mg/dL (74-106); Potassium 3.7 mmol/L (3.5-5.1); Protein, Total 6.9 g/dL (6.4-8.2); Sodium Level 139 mmol/L (136-145); Troponin-I HS 8 pg/mL (3.0-54.0)
--- NOTE | 2021-10-05 15:51 | EDS_ITS ---
HPI History of Present Illness Chief Complaint: Weakness Informant: patient and spouse/S.O. Onset/Context/Timing Onset: Yesterday Context: Gradual Onset Timing: Continuous Quality: Weakness Location: Generalized Worsened by: Nothing Relieved by: Nothing Narrative Narrative: Patient presents with generalized weakness that has been getting worse since yesterday. Patient was discharged from the transitional care unit yesterday. Patient has been unable to care for herself at home. has been unable to care for the patient at home. Patient is unable to ambulate. Patient states she feels weak all over. Patient denies any chest pain or shortness of breath. Patient denies any nausea or vomiting. Patient denies any headaches. [facility] Medical History aquired autoimmune encephalopathy Arthritis Asthma Back pain Bladder disease Cancer Cardiology follow-up encounter Dementia Dementia Depression Difficulty swallowing DVT (deep venous thrombosis) Falls Falls frequently Gastric reflux h/o back surgery Health care maintenance Heart disease High cholesterol History of heart attack History of stress test Hx of echocardiogram Hypertension Low iron Non-smoker Partial complex seizures Restless legs Seizures Shortness of breath on exertion TIA (transient ischemic attack) Walker as ambulation aid Home Medications lacosamide 100 mg tablet 100 mg PO BID 06/28/20 [History Last Taken 10/05/21] mirabegron 50 mg tablet,extended release 24 hr 100 mg PO QHS tablet 11/06/20 [History Last Taken 10/04/21] tolterodine 4 mg capsule,extended release 24 hr 4 mg PO DAILY cap 11/06/20 [History Last Taken 10/05/21] atorvastatin 40 mg PO QHS 03/08/21 [History Last Taken 10/04/21] levothyroxine [Synthroid] 25 mcg PO DAILY 03/08/21 [History Last Taken 10/05/21] PEP device #1 ea 05/09/21 [Rx Last Taken Unknown] memantine 10 mg tablet 10 mg PO BID 05/09/21 [History Last Taken 10/05/21] Probiotic Blend 1 cap PO DAILY 09/02/21 [History Last Taken 10/05/21] cholecalciferol (vitamin D3) [Vitamin D3] 25 mcg PO DAILY 09/02/21 [History Last Taken 10/05/21] gabapentin 100 mg PO QHS 09/04/21 [History Last Taken 10/03/21] albuterol sulfate 2.5 mg INHALATION Q6H PRN #0 ml 09/25/21 [Rx Last Taken Unknown] mirtazapine 7.5 mg PO QHS 30 Days #15 tab 09/25/21 [Rx Last Taken 10/03/21] potassium chloride [Klor-Con M20] 20 meq PO DAILYCM 30 Days #30 tab 09/25/21 [Rx Last Taken 10/04/21] pramipexole 0.5 mg PO TID 30 Days #90 tab 09/25/21 [Rx Last Taken 10/05/21] vortioxetine [Trintellix] 20 mg PO DAILY 10/05/21 [History Last Taken 10/05/21] Allergy/AdvReac Type Severity Reaction Status Date / Time doxycycline Allergy Mild Vomiting Verified 10/05/21 13:17 oxycodone [From Percocet] Allergy Mild Confusion Verified 10/05/21 13:17 acetaminophen Allergy Other Verified 10/05/21 13:17 [From Darvocet-N] lamotrigine [From Lamictal] Allergy Lip Verified 10/05/21 13:17 Swelling latex Allergy Rash Verified 10/05/21 13:17 moxifloxacin HCl Allergy Other Verified 10/05/21 13:17 [From Avelox] propoxyphene napsylate Allergy Other Verified 10/05/21 13:17 [From Darvocet-N] zolpidem tartrate AdvReac Other Verified 10/05/21 13:17 [From Ambien] Family History Mother CVA (cerebral vascular accident) Father Myocardial infarction Surgical History H/O heart artery stent H/O kyphoplasty History of appendectomy History of cardiac catheterization History of esophagogastroduodenoscopy (EGD) History of laryngoscopy History of lumpectomy of left breast Hx of cataract extraction Hx of colonoscopy Hx of ventral hernia repair Social History household members: spouse housing: house Smoking Status: Never smoker alcohol intake: current alcohol intake frequency: a few times a week do you feel safe at home: Yes ROS ROS ED Constitutional Constitutional ED: Denies chills or fever(s) Eyes Eyes: Denies blurry vision or change in vision ENT ENT ED: Denies rhinorrhea or sore throat Cardiovascular Cardiovascular: Denies chest pain or palpitations Respiratory/Chest Respiratory/Chest: Denies cough or dyspnea Gastrointestinal Gastrointestinal: Denies nausea or vomiting Genitourinary Genitourinary ED: Denies dysuria or hematuria Musculoskeletal Musculoskeletal: Denies back pain or neck pain Integumentary Denies abscess or rash Neurologic Neurologic: Reports weakness; Denies headache(s) Allergic/Immunologic Allergic/Immunologic ED: Denies mouth swelling or urticaria EXAM Physical Exam Const Vital Signs: 10/05/21 13:17 10/05/21 13:27 10/05/21 14:40 Temperature 97.7 F L Temperature Source Temporal Pulse Rate 94 Respiratory Rate 18 Respiratory Effort Normal Non-Labored Respiratory Pattern Normal Blood Pressure 147/86 H Blood Pressure Mean 106 Pulse Ox 90 87 Oxygen Delivery Method Room Air Room Air Oxygen Flow Rate (L/min) 10/05/21 14:42 Temperature Temperature Source Pulse Rate Respiratory Rate Respiratory Effort Respiratory Pattern Blood Pressure Blood Pressure Mean Pulse Ox 94 Oxygen Delivery Method Nasal Cannula Oxygen Flow Rate (L/min) 2 Positive well nourished and well developed General Appearance ED: well developed HEENT Reports moist mucous membranes Neck supple and no JVD Resp normal respiratory effort Auscultation: diminished lung sounds diffuse Cardio regular rate, regular rhythm and no murmurs GI normal to inspection, nondistended, normoactive bowel sounds and non-tender Palpation: soft Extremity normal to inspection General Extremety ED: Negative for edema or tenderness General Extremity: Negative for edema Neuro oriented x3, CN's II-XII intact bilaterally and no sensory deficits noted Sensorium / Orientation: awake and alert Speech: speech normal Motor Exam: general weakness Psych mental status grossly normal Skin no rashes or lesions noted MDM MDM MDM Narrative Medical decision making narrative: EKG was obtained. On my interpretation, it showed a normal sinus rhythm with a rate of 93. GA interval, QRS interval, and QTc intervals were all normal. There was slight left axis deviation at -27. There are no acute ST or T wave changes. This was unchanged compared to previous EKG dated 03/08/21. Portable chest x-ray was obtained. There is 1 view. On my interpretation, lungs showed some chronic changes. There is no acute process. There is no cardiomegaly. Bony thorax is normal. Radiologist also interpreted the x-ray and agrees. CBC was within normal limits. Comprehensive metabolic profile was essentially within normal limits. High-sensitivity troponin was normal at 8. Urinalysis was ordered and is pending. Case was discussed with the hospitalist. He will admit the patient to the hospital for observation. Patient will need to be placed in long-term facility. Patient and family understood and were agreeable with the plan. All questions were answered. Lab Data Attestation: I reviewed the patient's lab results. Labs: Laboratory Results - last 24 hr 10/05/21 10/05/21 14:38 14:38 WBC 8.5 RBC 4.37 Hgb 13.3 Hct 40.6 MCV 92.9 MCH 30.4 MCHC 32.8 RDW Std Deviation 46.9 H RDW Coeff of Jorge 13.8 Plt Count 213 MPV 10.0 Immature Gran % (Auto) 0.600 Neut % (Auto) 72.3 H Lymph % (Auto) 20.0 [place] % (Auto) 6.0 Eos % (Auto) 0.6 Baso % (Auto) 0.5 Absolute Neuts (auto) 6.2 Absolute Lymphs (auto) 1.71 Nucleated RBC % 0 Sodium 139 Potassium 3.7 Chloride 108 H Carbon Dioxide 24.0 Anion Gap 7 BUN 18 Creatinine 0.70 Estim Creat Clear Calc 43.64 Est GFR (MDRD) Af Amer 104 Est GFR (MDRD) Non-Af 86 BUN/Creatinine Ratio 25.7 H Glucose 99 Calcium 8.8 Total Bilirubin 0.70 AST 12 L ALT 16 Alkaline Phosphatase 139 H Troponin I High Sens 8 Total Protein 6.9 Albumin 3.0 L Globulin 3.9 Albumin/Globulin Ratio 0.8 L Radiography Chest X-Ray - ED: 1 View, Read by ED Physician, Read by Radiologist, No Acute Disease and Chronic Changes Diagnostic Testing: Clinical Impression(s) from Imaging Studies Chest X-Ray 10/05/21 14:50 IMPRESSION: Stable increased markings at the lung bases suggestive of early atelectasis and/or scarring slightly worse on the left side with blunting of the left costophrenic angle. Electronically Signed: Sam Mac MD at 15:14 EST , Treatment and Re-Evaluation Vital Sign Attestation:: Vital signs were reviewed prior to admission. They are stable. Discharge Plan Dx/Rx/DC Orders Clinical Impression: Debility Disposition Disposition: Acute Care Hospital [facility] Discharge Date/Time: 10/05/21 18:14
--- NOTE | 2021-10-05 16:00 | CM.ED ---
Addendum entered by Monika Gage 10/05/21 21:47: It was clarified to this social work case manager that Dr. Ramos, product manager medical device of [facility] is declining for patient to return to [facility] due to long-term need. Original Note: Social Work Consult: residential placement Referral source: Dr. Morris. Met with patient and patient spouse in room. Introduced self and social work case manager role. Patient and patient spouse agreeable to speak with this social work case manager. Patient baseline is confused. Patient presents as pleasantly confused. Patient spouse, Misael is primary caregiver for patient. Misael hires in aides to assist with care of patient daily. Misael reports that patient discharged from [facility] yesterday. Misael reports to have believed to be able to manage patient at home but was unable to manage patient on own when aides are not present. Misael reports that patient was even on the floor ones in the past 12 hours. Misael inquires about option of TCU readmission. This social work case manager broached conversation of possible long-term placement for patient as patient needing custodial placement so soon after assisted home placement. Misael reports I hope not but then brings up the memory care unit at [facility] as this is where patient brother is staying. This social work case manager provided Misael with list of nursing homes in the area and encouraged Misael to look over options while this social work case manager contact [facility]. Telephone call to [facility], social work case manager Verna. Verna reports that patient will not be able to return to [facility]CU due to nature of need being long-term placement. This social work case manager did also attempt to contact admissions on [facility], no answer. This social work case manager returning to speak with Misael and patient in room. This social work case manager updated on information obtained from [facility]. Misael reports to have looked over list but not able to make decision on facility. Currently late in the day. Misael agreeable to admission to acute care setting as unable to care for patient in the home. Collaborating with Dr. Morris. Dr. Morris agrees that patient is not safe to return to the community and will attempt admission to acute care floor for patient safety and to facilitate custodial placement. Social work to continue to follow. Mati Gage MSW, PAM-S
--- NOTE | 2021-10-05 17:08 | HP.PCM.HOS_ITS ---
Documented by User: Jose VALENCIA 10/05/21 17:34 HPI - General General Date of Admission: 10/05/21 Date of Service: 10/05/21 Chief Complaint: Generalized weakness HPI Narrative SHELDON AALN is a 81-year-old female who presents to the ED at [facility] on 10/05/2021 with a chief complaint of generalized weakness. Patient was discharged from TCU yesterday where she was receiving skilled rehab and therapy for debility after being hospitalized in mid August for UTI with urinary retention complicated by costochondritis. Patient's reports that he noticed that she was weak when she left TCU, however felt that he could take care of her at home as he is her primary caregiver. Patient and now present to the ED and are requesting placement for ongoing skilled therapy as feels he is overwhelmed and cannot care for his . Patient is without any complaints and denies chest pain, shortness of breath, palpitations, hemoptysis, sputum production, fever, chills, N/V/D. Of note, patient did test positive for COVID-19 on 09/19/2021 and was seen by Dr. Chatterjee in TCU who ordered a 3-day course of remdesivir for patient to avoid severe disease, no further treatment initiated. Patient is vaccinated with booster against COVID- 19. Patient was observed to have transient hypoxia while in the ED, however oxygen saturations improved with supplemental oxygen at 2 L. Patient CBC and BMP are unremarkable. EKG is normal sinus rhythm and shows no acute T wave or ST changes. Chest x-ray shows stable markings at the lung bases suggesting possible atelectasis or scarring on the left side. Chest x-ray is more or less unchanged from previous study. [facility] Medical History aquired autoimmune encephalopathy Arthritis Asthma Back pain Bladder disease Cancer Cardiology follow-up encounter Dementia Dementia Depression Difficulty swallowing DVT (deep venous thrombosis) Falls Falls frequently Gastric reflux h/o back surgery Health care maintenance Heart disease High cholesterol History of heart attack History of stress test Hx of echocardiogram Hypertension Low iron Non-smoker Partial complex seizures Restless legs Seizures Shortness of breath on exertion TIA (transient ischemic attack) Walker as ambulation aid Home Medications lacosamide 100 mg tablet 100 mg PO BID 06/28/20 [History Last Taken 10/05/21] mirabegron 50 mg tablet,extended release 24 hr 100 mg PO QHS tablet 11/06/20 [History Last Taken 10/04/21] tolterodine 4 mg capsule,extended release 24 hr 4 mg PO DAILY cap 11/06/20 [History Last Taken 10/05/21] atorvastatin 40 mg PO QHS 03/08/21 [History Last Taken 10/04/21] levothyroxine [Synthroid] 25 mcg PO DAILY 03/08/21 [History Last Taken 10/05/21] PEP device #1 ea 05/09/21 [Rx Last Taken Unknown] memantine 10 mg tablet 10 mg PO BID 05/09/21 [History Last Taken 10/05/21] Probiotic Blend 1 cap PO DAILY 09/02/21 [History Last Taken 10/05/21] cholecalciferol (vitamin D3) [Vitamin D3] 25 mcg PO DAILY 09/02/21 [History Last Taken 10/05/21] gabapentin 100 mg PO QHS 09/04/21 [History Last Taken 10/03/21] albuterol sulfate 2.5 mg INHALATION Q6H PRN #0 ml 09/25/21 [Rx Last Taken Unknown] mirtazapine 7.5 mg PO QHS 30 Days #15 tab 09/25/21 [Rx Last Taken 10/03/21] potassium chloride [Klor-Con M20] 20 meq PO DAILYCM 30 Days #30 tab 09/25/21 [Rx Last Taken 10/04/21] pramipexole 0.5 mg PO TID 30 Days #90 tab 09/25/21 [Rx Last Taken 10/05/21] vortioxetine [Trintellix] 20 mg PO DAILY 10/05/21 [History Last Taken 10/05/21] Allergy/AdvReac Type Severity Reaction Status Date / Time doxycycline Allergy Mild Vomiting Verified 10/05/21 13:17 oxycodone [From Percocet] Allergy Mild Confusion Verified 10/05/21 13:17 acetaminophen Allergy Other Verified 10/05/21 13:17 [From Darvocet-N] lamotrigine [From Lamictal] Allergy Lip Verified 10/05/21 13:17 Swelling latex Allergy Rash Verified 10/05/21 13:17 moxifloxacin HCl Allergy Other Verified 10/05/21 13:17 [From Avelox] propoxyphene napsylate Allergy Other Verified 10/05/21 13:17 [From Darvocet-N] zolpidem tartrate AdvReac Other Verified 10/05/21 13:17 [From Ambien] Family History Mother CVA (cerebral vascular accident) Father Myocardial infarction Surgical History H/O heart artery stent H/O kyphoplasty History of appendectomy History of cardiac catheterization History of esophagogastroduodenoscopy (EGD) History of laryngoscopy History of lumpectomy of left breast Hx of cataract extraction Hx of colonoscopy Hx of ventral hernia repair Social History household members: spouse housing: house Smoking Status: Never smoker alcohol intake: current alcohol intake frequency: a few times a week do you feel safe at home: Yes ROS Constitutional Constitutional: Reports weakness; Denies anorexia, change in weight, chills, fatigue, fever(s), malaise, night sweats or other Eyes Eyes: Denies blurry vision, change in eye color, change in vision, discharge from eye(s), double vision, erythema, eye pain, loss of vision or other ENT HEENT: Denies abnormal hearing, dysphagia, ear pain, epistaxis, headache(s), hearing loss, nasal congestion, nasal discharge, post nasal drip, sinus pressure, sore throat or other Cardiovascular Cardiovascular: Denies chest pain, claudication, dyspnea on exertion, edema, lightheadedness, orthopnea, palpitations, paroxysmal nocturnal dyspnea, rapid heart rate, syncope or other Respiratory/Chest Respiratory/Chest: Denies cough, dyspnea, excessive phlegm production, hemoptysis, productive cough, shortness of breath at rest, shortness of breath with exertion, wheezing or other Gastrointestinal Gastrointestinal: Denies abdominal pain, coffee ground emesis, constipation, diarrhea, dyspepsia, hematemesis, hematochezia, loose stools, melena, nausea, vomiting or other Genitourinary Genitourinary: Denies burning urination, difficulty urinating, dysuria, hematuria, nocturia, urinary frequency, urinary hesitancy, urinary incontinence, urinary urgency or other Musculoskeletal Musculoskeletal: Denies arthralgias, back pain, joint pain, joint stiffness, joint swelling, myalgias, neck pain or other Neurologic Neurologic: Denies abnormal gait, abnormal speech, confusion, disequilibrium, dizziness, focal weakness, headache(s), numbness, paresthesias, seizure-like activity, seizures, syncope, tingling, tremor(s) or other Psychiatric Psychiatric: Denies anxiety, depression, homicidal ideation, suicidal ideation or other Endocrine Endocrinology: Denies change in body appearance, cold intolerance, excessive sweating, heat intolerance, polydipsia, polyuria or other Hematologic/Lymphatic Hematologic/Lymphatic: Denies anemia, easy bleeding, easy bruising, lymphadenopathy or other Allergic/Immunologic Allergic/Immunologic: Denies rhinitis, hives, eczemia, asthma or other Vital Signs Vital Signs Vital Signs: 10/05/21 13:17 10/05/21 13:27 10/05/21 14:40 Temperature 97.7 F L Temperature Source Temporal Pulse Rate 94 Respiratory Rate 18 Respiratory Effort Normal Non-Labored Respiratory Pattern Normal Blood Pressure 147/86 H Blood Pressure Mean 106 Pulse Ox 90 87 Oxygen Delivery Method Room Air Room Air Oxygen Flow Rate (L/min) 10/05/21 14:42 Temperature Temperature Source Pulse Rate Respiratory Rate Respiratory Effort Respiratory Pattern Blood Pressure Blood Pressure Mean Pulse Ox 94 Oxygen Delivery Method Nasal Cannula Oxygen Flow Rate (L/min) 2 Weight Weight: 133 lb 9.602 oz Body Mass Index (BMI) 26.9 Physical Exam Const alert, oriented x3 and no apparent distress HEENT normocephalic, head/scalp atraumatic and hearing grossly normal bilaterally Eyes PERRL and conjunctivae normal Neck Neck Narrative: Patient with severe kyphosis about the upper back and neck. Resp normal respiratory effort, no retractions, no use of accessory muscles and clear to auscultation bilaterally Cardio regular rate, regular rhythm, no murmurs and no JVD GI normal to inspection, nondistended, normoactive bowel sounds Extremity normal to inspection Skin no rashes or lesions noted Neuro CN's II-XII intact bilaterally Psych affect normal Results Lab / Micro Data Result Diagrams: 10/06/21 05:53 10/06/21 05:53 Labs: Laboratory Results - last 24 hr 10/05/21 14:38: WBC 8.5, RBC 4.37, Hgb 13.3, Hct 40.6, MCV 92.9, MCH 30.4, MCHC 32.8, RDW Std Deviation 46.9 H, RDW Coeff of Jorge 13.8, Plt Count 213, MPV 10.0, Immature Gran % (Auto) 0.600, Neut % (Auto) 72.3 H, Lymph % (Auto) 20.0, [place] % (Auto) 6.0, Eos % (Auto) 0.6, Baso % (Auto) 0.5, Absolute Neuts (auto) 6.2, Absolute Lymphs (auto) 1.71, Nucleated RBC % 0 10/05/21 14:38: Sodium 139, Potassium 3.7, Chloride 108 H, Carbon Dioxide 24.0, Anion Gap 7, BUN 18, Creatinine 0.70, Estim Creat Clear Calc 43.64, Est GFR (MDRD) Af Amer 104, Est GFR (MDRD) Non-Af 86, BUN/Creatinine Ratio 25.7 H, Glucose 99, Calcium 8.8, Total Bilirubin 0.70, AST 12 L, ALT 16, Alkaline Phosphatase 139 H, Troponin I High Sens 8, Total Protein 6.9, Albumin 3.0 L, Globulin 3.9, Albumin/Globulin Ratio 0.8 L Micro: Microbiology 10/05/21 14:18 Nasal Secretion SARS-CoV-2 Antigen (Rapid) - Final Radiology Impression Chest X-Ray 10/05/21 14:50 IMPRESSION: Stable increased markings at the lung bases suggestive of early atelectasis and/or scarring slightly worse on the left side with blunting of the left costophrenic angle. Electronically Signed: Sam Mac MD at 15:14 EST , Assessment & Plan Assessment/Plan (1) Debility: PLAN: Patient is a 81-year-old female who presents to the ED at [facility] on 10/05/2021 with a chief complaint of generalized weakness. Patient will be admitted and assess for placement. 1) adult failure to thrive/generalized weakness Patient without any acute complaints. Patient's is her primary caregiver as patient suffers from dementia and cannot care for herself. Patient discharged from TCU yesterday and feels that he cannot care for his at home. Plan; admit for observation, PT/OT eval ordered, case management consult ordered, CBC and BMP in a.m, as needed medications ordered. 2) transient hypoxia Patient was observed having an episode of hypoxia in the ED where her oxygen saturations dropped to 87%, oxygen saturations improved with 2 L of supplemental oxygen. Patient without any complaints of chest pain, palpitations, shortness of breath, sputum production, hemoptysis or lower extremity swelling/pain. EKG is unremarkable. Chest x-ray is stable from previous study. Patient did test positive for Covid on 09/19, where she was given a 3-day course of remdesivir and was evaluated by infectious disease. We will continue home aerosols and continue supplemental oxygen continue to monitor. 3) history of COVID-19 infection Patient did test positive on 09/19 for COVID-19. Patient is vaccinated with booster against COVID-19. Was seen and treated by Dr. Chatterjee while in TCU, who initiated 3 days of remdesivir. No further treatment was given. 4) depression/anxiety Continue Remeron. 5) dementia Continue memantine. 6) seizure history Continue Vimpat. 7) hypothyroidism Continue Synthroid. 8) RLS Continue gabapentin. CODE STATUS: Full code. DVT prophylaxis - Lovenox Patient seen by Jose Jackson PA-C, under the supervision of Dr. Macedo. Time spent on patient care: 25 minutes. Documented by User: Dr. Jean Claude Macedo MD 10/06/21 11:17 HPI - General General Date of Admission: 10/05/21 [facility] Medical History aquired autoimmune encephalopathy Arthritis Asthma Back pain Bladder disease Cancer Cardiology follow-up encounter Dementia Dementia Depression Difficulty swallowing DVT (deep venous thrombosis) Falls Falls frequently Gastric reflux h/o back surgery Health care maintenance Heart disease High cholesterol History of heart attack History of stress test Hx of echocardiogram Hypertension Low iron Non-smoker Partial complex seizures Restless legs Seizures Shortness of breath on exertion TIA (transient ischemic attack) Walker as ambulation aid Home Medications lacosamide 100 mg tablet 100 mg PO BID 06/28/20 [History Last Taken 10/05/21] mirabegron 50 mg tablet,extended release 24 hr 100 mg PO QHS tablet 11/06/20 [ History Last Taken 10/04/21] tolterodine 4 mg capsule,extended release 24 hr 4 mg PO DAILY cap 11/06/20 [History Last Taken 10/05/21] atorvastatin 40 mg PO QHS 03/08/21 [History Last Taken 10/04/21] levothyroxine [Synthroid] 25 mcg PO DAILY 03/08/21 [History Last Taken 10/05/21] PEP device #1 ea 05/09/21 [Rx Last Taken Unknown] memantine 10 mg tablet 10 mg PO BID 05/09/21 [History Last Taken 10/05/21] Probiotic Blend 1 cap PO DAILY 09/02/21 [History Last Taken 10/05/21] cholecalciferol (vitamin D3) [Vitamin D3] 25 mcg PO DAILY 09/02/21 [History Last Taken 10/05/21] gabapentin 100 mg PO QHS 09/04/21 [History Last Taken 10/03/21] albuterol sulfate 2.5 mg INHALATION Q6H PRN #0 ml 09/25/21 [Rx Last Taken Unknown] mirtazapine 7.5 mg PO QHS 30 Days #15 tab 09/25/21 [Rx Last Taken 10/03/21] potassium chloride [Klor-Con M20] 20 meq PO DAILYCM 30 Days #30 tab 09/25/21 [Rx Last Taken 10/04/21] pramipexole 0.5 mg PO TID 30 Days #90 tab 09/25/21 [Rx Last Taken 10/05/21] vortioxetine [Trintellix] 20 mg PO DAILY 10/05/21 [History Last Taken 10/05/21] Allergy/AdvReac Type Severity Reaction Status Date / Time doxycycline Allergy Mild Vomiting Verified 10/05/21 13:17 oxycodone [From Percocet] Allergy Mild Confusion Verified 10/05/21 13:17 acetaminophen Allergy Other Verified 10/05/21 13:17 [From Darvocet-N] lamotrigine [From Lamictal] Allergy Lip Verified 10/05/21 13:17 Swelling latex Allergy Rash Verified 10/05/21 13:17 moxifloxacin HCl Allergy Other Verified 10/05/21 13:17 [From Avelox] propoxyphene napsylate Allergy Other Verified 10/05/21 13:17 [From Darvocet-N] zolpidem tartrate AdvReac Other Verified 10/05/21 13:17 [From Ambien] Family History Mother CVA (cerebral vascular accident) Father Myocardial infarction Surgical History H/O heart artery stent H/O kyphoplasty History of appendectomy History of cardiac catheterization History of esophagogastroduodenoscopy (EGD) History of laryngoscopy History of lumpectomy of left breast Hx of cataract extraction Hx of colonoscopy Hx of ventral hernia repair Social History household members: spouse housing: house Smoking Status: Never smoker alcohol intake: current alcohol intake frequency: a few times a week do you feel safe at home: Yes Results Lab / Micro Data Result Diagrams: 10/06/21 05:53 10/06/21 05:53 Charges/Coding Addendum Addendum: Dr. Macedo: I personally reviewed the chart and examined the patient, and agree with the above findings. 81-year-old female who was recently admitted for UTI and transferred to the additional care unit for rehab, was discharged home at the end of her 28-day stay at the TCU. According to the when he came to pick her up she needed maximal assistance to be able to get into the car, he only had help for about 6 hours at home without home aids that he had and was unable to take care of her therefore you to bring her back. He states that she was having difficulty walking in the TCU and constantly needing reminders about moving her leg forward. I discussed with him that this could just be progression of her dementia urine sample was unremarkable and she does not appear to be infected. She did have a history of Covid about 20 days ago and she is now requiring a little bit of oxygen, though is unsure whether or not this is related to her recent episode of Covid or if she just needs better pulmonary toileting. We will continue to monitor and have her work with PT/OT for evaluation and discharge planning to a SNF. Clinical time spent in all aspects of patient care: 40 minutes Visit Charges OBSV E&M: 63572 Initial observation care L2
--- NOTE | 2021-10-05 17:15 | NURSING ---
MED SURG OBS [place] DEBILITY
[2021-10-05 17:24] LABS: Bacteria 0 SEEN /hpf (None Seen); Mucous, Urine 0 SEEN /hpf (<or=2+); Red Blood Cells-Urine 0 SEEN /hpf (0-5); White Blood Cells 0 SEEN /hpf (0-5)
[2021-10-05 17:41] LABS: Color, Urine Yellow (Yellow); Glucose, Dipstick Normal (Normal); Ketone-Dipstick Negative (Negative); Leukocyte Esterase-Dipstick Negative /ul (Negative); Nitrite-Dipstick Negative (Negative); Occult Blood-Urine Negative /ul (Negative); Protein-Dipstick 30 mg/dl (Negative); Urine Bilirubin Dipstick Negative (Negative); Urine Clarity Clear (Clear); Urine Urobilinogen Normal (Normal)
[2021-10-05 17:50] LABS: Squamous Epithelial Cells - UA 0-5 SEEN /hpf (5-10)
[2021-10-05] MEDS: Mirabegron 50 MG TAB.ER.24H 100 MG PO (21:51)
[2021-10-05] MEDS: Mirtazapine 15 MG Tablet 7.5 MG PO (21:51)
[2021-10-05] MEDS: Pramipexole Di-HCl 0.5 MG Tablet PO (21:52)
[2021-10-05] MEDS: Memantine Hydrochloride 10 MG Tablet PO (21:52)
[2021-10-05] MEDS: Atorvastatin Calcium 40 MG Tablet PO (21:52)
[2021-10-05] MEDS: Gabapentin 100 MG Capsule PO (21:52)
[2021-10-05] MEDS: Lacosamide 100 MG Tablet PO (21:52)
[2021-10-06] VITALS (9 sets, daily range): BP systolic 123–148; BP diastolic 81–92; PULSE 82–102; RESP 16–18; TEMP 36.6–37; O2SAT 90–98
[2021-10-06] MEDS: Pramipexole Di-HCl 0.5 MG Tablet PO ×3 (05:23→21:48)
[2021-10-06] MEDS: Levothyroxine 25 MCG TABLET PO (05:23)
[2021-10-06 06:19] LABS: Absolute Lymphocyte Count 1.63 X10^3/uL (0.83-4.51); Absolute Neutrophil Count 5.2 X10^3/uL (2.0-7.7); Basophil# 0.05 X10^3/uL; Basophil% 0.7 % (0-1); Eosinophil# 0.08 X10^3/uL; Eosinophils% 1.1 % (0-5); Hematocrit 36.9 % (37-47); Hemoglobin 12.6 g/dL (12.0-15.0); Lymphocyte # 1.63 X10^3/ul (0.83-4.51); Lymphocyte % 21.7 % (19-41); Mean Corp Hgb Conc 34.1 g/dL (32-36); Mean Corpuscular Hgb 31.3 pg (27.0-32.0); Mean Corpuscular Volume 91.6 fL (81-99); Mean Platelet Vol. 10.1 fl (6.2-12.0); Monocyte# 0.51 X10^3/uL; Monocyte% 6.8 % (0-10); NRBC Flagged by Analyzer 0 % (0-5); Neutrophil # 5.22 X10^3/uL (2.7-7.7); Neutrophil % 69.3 % (47-70); Platelet Count 207 K/mm3 (150-450); RBC Distribution Width CV 13.7 % (11.6-14.6); RBC Distribution Width SD 45.9 fl (35.1-43.9); Red Blood Count 4.03 M/mm3 (4.2-5.4); White Blood Count 7.5 K/mm3 (4.4-11.0)
[2021-10-06 06:52] LABS: Anion Gap 5 (5-15); BUN 19 mg/dL (7-18); BUN/Creat Ratio 32.1 RATIO (10-20); Calcium,Total 8.3 mg/dL (8.5-10.1); Chloride 107 mmol/L (98-107); Creatinine, Serum 0.59 mg/dL (0.55-1.02); EST Glomerular Filtration Rate 104 mL/min (>60); Est Glom Filt Rate - Afr Amer 126 mL/min (>60); Estimated Creatinine Clearance 40.18 ml/min; Glucose 104 mg/dL (74-106); Potassium 3.8 mmol/L (3.5-5.1); Sodium Level 137 mmol/L (136-145)
[2021-10-06] MEDS: Potassium Chloride Oral Tablet 20 MEQ PO (08:34)
[2021-10-06] MEDS: Lacosamide 100 MG Tablet PO ×2 (09:45→21:49)
[2021-10-06] MEDS: 0.9% Normal Saline 1,000 ML 75 ML IV ×2 (09:45→21:46)
[2021-10-06] MEDS: Enoxaparin 40 MG/0.4 ML Syringe SC (09:48)
[2021-10-06] MEDS: Memantine Hydrochloride 10 MG Tablet PO ×2 (09:49→21:51)
--- NOTE | 2021-10-06 11:16 | PN.HOSP_ITS ---
Documented by User: Jose VALENCIA 10/06/21 11:28 Subjective Subjective Patient is chronically confused secondary to dementia and cannot provide much insight into her current condition. Does not appear in acute distress. Objective Data Objective Data Vital Signs: Vital Signs Temp Pulse Resp BP Pulse Ox 98.2 F 102 H 16 123/83 H 96 10/06/21 09:41 10/06/21 09:41 10/06/21 09:41 10/06/21 09:41 10/06/21 09:41 Oxygen Flow Rate (L/min) 2 Oxygen Delivery Method Nasal Cannula Weight: 123 lb 0.287 oz Body Mass Index (BMI) 24.8 Intake & Output: Intake and Output for Last 24 Hours 10/04/21 10/05/21 10/06/21 23:59 23:59 23:59 Intake Total 100 / 100 Output Total 0 / 0 Balance 100 / 100 Lab / Micro Data Result Diagrams: 10/06/21 05:53 10/06/21 05:53 Labs: Laboratory Results - last 24 hr 10/05/21 14:38: WBC 8.5, RBC 4.37, Hgb 13.3, Hct 40.6, MCV 92.9, MCH 30.4, MCHC 32.8, RDW Std Deviation 46.9 H, RDW Coeff of Jorge 13.8, Plt Count 213, MPV 10.0, Immature Gran % (Auto) 0.600, Neut % (Auto) 72.3 H, Lymph % (Auto) 20.0, [place] % (Auto) 6.0, Eos % (Auto) 0.6, Baso % (Auto) 0.5, Absolute Neuts (auto) 6.2, Absolute Lymphs (auto) 1.71, Nucleated RBC % 0 10/05/21 14:38: Sodium 139, Potassium 3.7, Chloride 108 H, Carbon Dioxide 24.0, Anion Gap 7, BUN 18, Creatinine 0.70, Estim Creat Clear Calc 43.64, Est GFR (MDRD) Af Amer 104, Est GFR (MDRD) Non-Af 86, BUN/Creatinine Ratio 25.7 H, Glucose 99, Calcium 8.8, Total Bilirubin 0.70, AST 12 L, ALT 16, Alkaline Phosphatase 139 H, Troponin I High Sens 8, Total Protein 6.9, Albumin 3.0 L, Globulin 3.9, Albumin/Globulin Ratio 0.8 L 10/05/21 17:15: Urine Color Yellow, Urine Clarity Clear, Urine pH 6.0, Ur Specific [place] 1.020, Urine Protein 30 H, Urine Glucose (UA) Normal, Urine Ketones Negative, Urine Occult Blood Negative, Urine Nitrite Negative, Urine Bilirubin Negative, Urine Urobilinogen Normal, Ur Leukocyte Esterase Negative, Urine RBC 0 SEEN, Urine WBC 0 SEEN, Ur Squamous Epith Cells 0-5 SEEN, Urine Bacteria 0 SEEN, Urine Mucus 0 SEEN 10/06/21 05:53: WBC 7.5, RBC 4.03 L, Hgb 12.6, Hct 36.9 L, MCV 91.6, MCH 31.3, MCHC 34.1, RDW Std Deviation 45.9 H, RDW Coeff of Jorge 13.7, Plt Count 207, MPV 10.1, Immature Gran % (Auto) 0.400, Neut % (Auto) 69.3, Lymph % (Auto) 21.7, [place] % (Auto) 6.8, Eos % (Auto) 1.1, Baso % (Auto) 0.7, Absolute Neuts (auto) 5.2, Absolute Lymphs (auto) 1.63, Nucleated RBC % 0 10/06/21 05:53: Sodium 137, Potassium 3.8, Chloride 107, Carbon Dioxide 25.0, Anion Gap 5, BUN 19 H, Creatinine 0.59, Estim Creat Clear Calc 40.18, Est GFR (MDRD) Af Amer 126, Est GFR (MDRD) Non-Af 104, BUN/Creatinine Ratio 32.1 H, Glucose 104, Calcium 8.3 L Micro: Microbiology 10/05/21 14:18 Nasal Secretion SARS-CoV-2 Antigen (Rapid) - Final Radiography Diagnostic Testing: Radiology Impression Chest X-Ray 10/05/21 14:50 IMPRESSION: Stable increased markings at the lung bases suggestive of early atelectasis and/or scarring slightly worse on the left side with blunting of the left costophrenic angle. Electronically Signed: Sam Mac MD at 15:14 EST , Physical Exam Const alert Orientation / Consciousness: disoriented HEENT head/scalp atraumatic Head and Scalp: normocephalic Eyes PERRL and conjunctivae normal Neck no lymphadenopathy, supple and no JVD Resp normal respiratory effort, no retractions and no use of accessory muscles Cardio regular rate, regular rhythm and no JVD GI normal to inspection, nondistended, normoactive bowel sounds Extremity normal to inspection Skin no rashes or lesions noted Neuro CN's II-XII intact bilaterally Psych affect normal Assessment & Plan Assessment/Plan (1) Debility: PLAN: Day 1 Discharge planning: Current plan is for patient to discharge to SNF, CM[facility] 1) adult failure to thrive/generalized weakness Patient discharged from TCU on 10/04 and feels that he cannot care for his at home. Patient was admitted for placement, PT/OT eval ordered, CM/SW following. 2) transient hypoxia No further episodes of hypoxia observed overnight. Patient currently satting 96% on 2L via NC. Patient without any complaints of chest pain, palpitations, shortness of breath, sputum production, hemoptysis or lower extremity swelling/pain. EKG is unremarkable. Chest x-ray is stable from previous study. Patient did test positive for Covid on 09/19, where she was given a 3-day course of remdesivir and was evaluated by infectious disease. Continue bronchodilators, continue to wean off supplemental o2 as tolerated. 3) history of COVID-19 infection Patient did test positive on 09/19 for COVID-19. Patient is vaccinated with booster against COVID-19. Was seen and treated by Dr. Chatterjee while in TCU, who initiated 3 days of remdesivir. 10 day quarantine completed prior to admission. 4) depression/anxiety Continue Remeron. 5) dementia Continue memantine. 6) seizure history Continue Vimpat. 7) hypothyroidism Continue Synthroid. 8) RLS Continue gabapentin. DVT prophylaxis - Lovenox Patient seen by Jose Jackson PA-C, under the supervision of Dr. Macedo. Time spent on patient care: 10 minutes. Documented by User: Dr. Jean Claude Macedo MD 10/06/21 12:47 Objective Data Lab / Micro Data Result Diagrams: 10/06/21 05:53 10/06/21 05:53 Charges/Coding Addendum Addendum: Dr. Macedo: I personally reviewed the chart and examined the patient, and agree with the above findings. 81-year-old female who was recently admitted for UTI and transferred to the additional care unit for rehab, was discharged home at the end of her 28-day stay at the TCU. According to the when he came to pick her up she needed maximal assistance to be able to get into the car, he only had help for about 6 hours at home without home aids that he had and was unable to take care of her therefore you to bring her back. He states that she was having difficulty walking in the TCU and constantly needing reminders about moving her leg forward. I discussed with him that this could just be progression of her dementia urine sample was unremarkable and she does not appear to be infected. She did have a history of Covid about 20 days ago and she is now requiring a little bit of oxygen, though is unsure whether or not this is related to her recent episode of Covid or if she just needs better pulmonary toileting. We will continue to monitor and have her work with PT/OT for evaluation and discharge planning to a SNF. Clinical time spent in all aspects of patient care: 40 minutes 10/06/2021: No new issues overnight, she is maintaining her oxygen sats on 2 L nasal cannula, will continue to encourage pulmonary toileting with incentive spirometry. It does appear that a lot of her hypoxia tends to be transient and then responsive to minimal oxygen, per report by nursing they were putting her on the oxygen simply because of the episodes of desaturation however she was recovering on her own without oxygen in the ER. We will continue to work with social work in finding her another intermediate to continue with her PT/OT. is aware that if this is due to a decline in her dementia, which she has acknowledged has been getting worse over the last several months, there may not be any meaningful recovery of her functionality. Clinical time spent in all aspects of patient care: 15 minutes Visit Charges OBSV E&M: 98289 Subsequent observation care L2
--- NOTE | 2021-10-06 15:24 | CASEMGMT ---
MAN CM in to complete NEGRETE form with patient. RN EVIE explained NEGRETE form to patient, patient voiced understanding. Patient signed NEGRETE form and filed in chart. Patient provided with copy of signed NEGRETE form. Patient had no further questions or concerns at this time.
--- NOTE | 2021-10-06 17:19 | CM.ED ---
YOANDY Note Referral Source: MAN CASE Referral Reason: Discharge Planning SW was part of the email from DANNIELLE Gillespie renal social worker, who advised that Dr. Ramos said that patient could not return to TCU. SW met with patient and . Patient did not talk to this service writer during the conversation. Patient's stated he went to [facility] today and their were no admission staff available, however he spoke to quality measurement specialist who said that there were empty beds and patient coming there should not be an issue. reports he has traditional medicare and supplemental and intermediate care insurance. reports that he wants patient to go to TCU at [facility]. SW asked for a plan B and said that he has no plan B for patient. SW encouraged him to come up with another alternative as if there are no beds at [facility]. said that he has not heard anything good about any other place and he doesn't want a plan B. SW attempted to provide patient's with list of SNF and he said that Verna from TCU had given him one and Monika from ED had given him one. Plan: Patient's wants TCU at [facility] Salina SOLORIO
[2021-10-06] MEDS: Atorvastatin Calcium 40 MG Tablet PO (21:48)
[2021-10-06] MEDS: Mirabegron 50 MG TAB.ER.24H 100 MG PO (21:49)
[2021-10-06] MEDS: Mirtazapine 15 MG Tablet 7.5 MG PO (21:49)
[2021-10-06] MEDS: Gabapentin 100 MG Capsule PO (21:50)
[2021-10-07] VITALS (8 sets, daily range): BP systolic 137–148; BP diastolic 82–100; PULSE 76–95; RESP 18–20; TEMP 36.4–36.8; O2SAT 88–94
[2021-10-07] MEDS: Pramipexole Di-HCl 0.5 MG Tablet PO ×3 (06:15→22:31)
[2021-10-07] MEDS: Levothyroxine 25 MCG TABLET PO (06:15)
[2021-10-07] MEDS: Potassium Chloride Oral Tablet 20 MEQ PO (08:42)
[2021-10-07] MEDS: Enoxaparin 40 MG/0.4 ML Syringe SC (08:42)
[2021-10-07] MEDS: Memantine Hydrochloride 10 MG Tablet PO ×2 (08:42→22:31)
[2021-10-07] MEDS: Lacosamide 100 MG Tablet PO ×2 (08:44→22:31)
--- NOTE | 2021-10-07 10:21 | PN.HOSP_ITS ---
Documented by User: Jose VALENCIA 10/07/21 10:34 Subjective Subjective Patient is chronically confused secondary to dementia and cannot provide much insight into her current condition. Does not appear in acute distress. Objective Data Objective Data Vital Signs: Vital Signs Temp Pulse Resp BP Pulse Ox 97.9 F 79 18 140/90 H 90 10/07/21 08:17 10/07/21 08:17 10/07/21 08:17 10/07/21 08:17 10/07/21 08:17 Oxygen Flow Rate (L/min) 2 Oxygen Delivery Method Room Air Weight: 123 lb 0.287 oz Body Mass Index (BMI) 24.8 Intake & Output: Intake and Output for Last 24 Hours 10/05/21 10/06/21 10/07/21 23:59 23:59 23:59 Intake Total 2001.25 / 2101.25 100 / 100 Output Total 500 / 600 100 / 100 Balance 1501.25 / 1501.25 0 / 0 Medical Nutrition Assessment Dietitian: Malnutrition Criteria Met Start: 10/06/21 17:03 Freq: Status: Active Protocol: Document 10/06/21 17:03 RMA (Rec: 10/06/21 17:03 RMA [id number]) Nutrition Malnutrition Evidence of Malnutrition Exists Yes Malnutrition (severe): Chronic Evidenced By Suboptimal Energy Intake ( Severe),Weight Loss (Severe) Clinical Problem Chronic Disease or Condition Related Malnutrition Etiology Severe protein-calorie malnutrition in the context of weakness/debility/chronic illness related to inadequate oral intake Signs/Symptoms as evidenced by PO less than 50% estimated nutrition needs and ~12-13% wt loss x past 6-7 months Status Active Problem Recommendation Dietitian Recommendations/Changes Will liberalize diet to Regular due to signs and symptoms of malnutrition. Will add ensure pudding BID w/ meals. Will continue ensure compact 4 times per day w/ medpass as ordered. Consider consult to speech/MANUFACTURING BAKER for swallowing evaluation given patient history of esophageal dysphagia. Lab / Micro Data Result Diagrams: 10/06/21 05:53 10/06/21 05:53 Micro: Microbiology 10/05/21 14:18 Nasal Secretion SARS-CoV-2 Antigen (Rapid) - Final Physical Exam Const alert, oriented x3 and no apparent distress HEENT head/scalp atraumatic and moist oral mucous membranes Head and Scalp: normocephalic Eyes PERRL, EOMs intact bilaterally and conjunctivae normal Neck no lymphadenopathy, supple and no JVD Resp normal respiratory effort, no retractions and no use of accessory muscles Cardio regular rate, regular rhythm and no JVD GI normal to inspection, nondistended, normoactive bowel sounds Extremity normal to inspection, full ROM and no clubbing, cyanosis or edema Skin no rashes or lesions noted, no wounds and skin turgor normal Neuro CN's II-XII intact bilaterally Psych affect normal Assessment & Plan Assessment/Plan (1) Debility: PLAN: Day 2 Discharge planning: Current plan is for patient to discharge to SNF, CM/SW following. 1) adult failure to thrive/generalized weakness Patient discharged from TCU on 10/04 and feels that he cannot care for his at home. Patient was admitted for placement, PT/OT eval ordered, CM/SW following. 2) transient hypoxia Resolved, currently satting patient currently satting 94% on room air patient w ithout any complaints of chest pain, palpitations, shortness of breath, sputum production, hemoptysis or lower extremity swelling/pain. Patient did test positive for Covid on 09/19, where she was given a 3-day course of remdesivir and was evaluated by infectious disease. Continue bronchodilators, supplemental O2 as needed. 3) history of COVID-19 infection Patient did test positive on 09/19 for COVID-19. Patient is vaccinated with booster against COVID-19. Was seen and treated by Dr. Chatterjee while in TCU, who initiated 3 days of remdesivir. 10 day quarantine completed prior to admission. 4) depression/anxiety Continue Remeron. 5) dementia Continue memantine. 6) seizure history Continue Vimpat. 7) hypothyroidism Continue Synthroid. 8) RLS Continue gabapentin. DVT prophylaxis - Lovenox Patient seen by Jose Jackson PA-C, under the supervision of Dr. Macedo. Time spent on patient care: 7 minutes. Documented by User: Dr. Jean Claude Macedo MD 10/07/21 13:50 Objective Data Lab / Micro Data Result Diagrams: 10/06/21 05:53 10/06/21 05:53 Charges/Coding Addendum Addendum: Dr. Macedo: I personally reviewed the chart and examined the patient, and agree with the above findings. 81-year-old female who was recently admitted for UTI and transferred to the additional care unit for rehab, was discharged home at the end of her 28-day stay at the TCU. According to the when he came to pick her up she needed maximal assistance to be able to get into the car, he only had help for about 6 hours at home without home aids that he had and was unable to take care of her therefore you to bring her back. He states that she was having difficulty walking in the TCU and constantly needing reminders about moving her leg forward. I discussed with him that this could just be progression of her dementia urine sample was unremarkable and she does not a ppear to be infected. She did have a history of Covid about 20 days ago and she is now requiring a little bit of oxygen, though is unsure whether or not this is related to her recent episode of Covid or if she just needs better pulmonary toileting. We will continue to monitor and have her work with PT/OT for evaluation and discharge planning to a SNF. Clinical time spent in all aspects of patient care: 40 minutes 10/06/2021: No new issues overnight, she is maintaining her oxygen sats on 2 L na teresa cannula, will continue to encourage pulmonary toileting with incentive spirometry. It does appear that a lot of her hypoxia tends to be transient and then responsive to minimal oxygen, per report by nursing they were putting her on the oxygen simply because of the episodes of desaturation however she was recovering on her own without oxygen in the ER. We will continue to work with social work in finding her another long term to continue with her PT/OT. is aware that if this is due to a decline in her dementia, which she has acknowledged has been getting worse over the last several months, there may not be any meaningful recovery of her functionality. Clinical time spent in all aspects of patient care: 15 minutes 10/07/2021: Remains much the same today. No issues overnight. Continue with PT/OT for evaluation and placement needs. We will continue to recommend incentive spirometry feeling most of her oxygen issues are secondary to atelectasis shallow breathing and just not ambulating versus any late effects of Covid since she has been vaccinated with the boosters well. Clinical time spent in all aspects of patient care: 10 minutes Visit Charges OBSV E&M: [id number] Subsequent observation care L1
[2021-10-07] MEDS: 0.9% Normal Saline 1,000 ML 75 ML IV ×2 (10:27→22:28)
[2021-10-07] MEDS: Atorvastatin Calcium 40 MG Tablet PO (22:29)
[2021-10-07] MEDS: Mirtazapine 15 MG Tablet 7.5 MG PO (22:30)
[2021-10-07] MEDS: Mirabegron 50 MG TAB.ER.24H 100 MG PO (22:30)
[2021-10-07] MEDS: Gabapentin 100 MG Capsule PO (22:31)
[2021-10-08 04:25] VITALS: BP 148/93; PULSE 80; RESP 18; TEMP 36.2; O2SAT 97
[2021-10-08] MEDS: Pramipexole Di-HCl 0.5 MG Tablet PO ×3 (04:48→19:49)
[2021-10-08] MEDS: Levothyroxine 25 MCG TABLET PO (04:52)
--- NOTE | 2021-10-08 07:38 | PN.HOSP_ITS ---
Objective Data Objective Data Vital Signs: Vital Signs Temp Pulse Resp BP Pulse Ox 97.2 F L 80 18 148/93 H 97 10/08/21 04:25 10/08/21 04:25 10/08/21 04:25 10/08/21 04:25 10/08/21 04:25 Oxygen Flow Rate (L/min) 2 Oxygen Delivery Method Room Air Weight: 123 lb 0.287 oz Body Mass Index (BMI) 24.8 Intake & Output: Intake and Output for Last 24 Hours 10/06/21 10/07/21 10/08/21 23:59 23:59 23:59 Intake Total 2000.25 / 2100.25 215.50 / 2152.50 Output Total 500 / 600 275 / 275 1025 / 1025 Balance 1501.25 / 1501.25 1877.50 / 1877.50 -1025 / -1025 Medical Nutrition Assessment Dietitian: Malnutrition Criteria Met Start: 10/06/21 17:03 Freq: Status: Active Protocol: Document 10/06/21 17:03 RMA (Rec: 10/06/21 17:03 RMA [id number]) Nutrition Malnutrition Evidence of Malnutrition Exists Yes Malnutrition (severe): Chronic Evidenced By Suboptimal Energy Intake ( Severe),Weight Loss (Severe) Clinical Problem Chronic Disease or Condition Related Malnutrition Etiology Severe protein-calorie malnutrition in the context of weakness/debility/chronic illness related to inadequate oral intake Signs/Symptoms as evidenced by PO less than 50% estimated nutrition needs and ~12-13% wt loss x past 6-7 months Status Active Problem Recommendation Dietitian Recommendations/Changes Will liberalize diet to Regular due to signs and symptoms of malnutrition. Will add ensure pudding BID w/ meals. Will continue ensure compact 4 times per day w/ medpass as ordered. Consider consult to speech/DIRECTOR SCHOOL OF NURSING for swallowing evaluation given patient history of esophageal dysphagia. Lab / Micro Data Result Diagrams: 10/06/21 05:53 10/06/21 05:53 Micro: Microbiology 10/05/21 14:18 Nasal Secretion SARS-CoV-2 Antigen (Rapid) - Final Assessment & Plan Assessment/Plan (1) Debility: PLAN: Day 2 Discharge planning: Current plan is for patient to discharge to SNF, CM/SW following. 1) adult failure to thrive/generalized weakness Patient discharged from TCU on 10/04 and feels that he cannot care for his at home. Patient was admitted for placement, PT/OT eval ordered, CM/SW following. 2) transient hypoxia Resolved, currently satting patient currently satting 94% on room air patient without any complaints of chest pain, palpitations, shortness of breath, sputum production, hemoptysis or lower extremity swelling/pain. Patient did test p ositive for Covid on 09/19, where she was given a 3-day course of remdesivir and was evaluated by infectious disease. Continue bronchodilators, supplemental O2 as needed. 3) history of COVID-19 infection Patient did test positive on 09/19 for COVID-19. Patient is vaccinated with booster against COVID-19. Was seen and treated by Dr. Chatterjee while in TCU, who initiated 3 days of remdesivir. 10 day quarantine completed prior to admission. 4) depression/anxiety Continue Remeron. 5) dementia Continue memantine. 6) seizure history Continue Vimpat. 7) hypothyroidism Continue Synthroid. 8) RLS Continue gabapentin. DVT prophylaxis - Lovenox
[2021-10-08 07:53] VITALS: O2SAT 92
[2021-10-08 07:57] VITALS: BP 155/88; PULSE 80; RESP 16; TEMP 36.5; O2SAT 92
--- NOTE | 2021-10-08 08:07 | WOUNDNOTE ---
wound photo: elena
[2021-10-08] MEDS: Potassium Chloride Oral Tablet 20 MEQ PO (08:10)
[2021-10-08 08:17] VITALS: O2SAT 92
--- NOTE | 2021-10-08 09:53 | CASEMGMT ---
Addendum entered by Marleen Kaur 10/08/21 11:11: SW hasn't heard back from [facility] yet. SW placed another call to Lemmon at [facility] and left message. SW faxed referral to [facility]. Original Note: Social Work Note SW reviewed chart. Pt's is interested in [facility]. SW placed a call to Lemmon at [facility] and left message to inquire about bed availability. SW waiting for call back. Plan: SNF pending acceptance Marleen Kaur CRIPPLE CHASER, RESOURCE PROTECTION SPECIALIST
[2021-10-08] MEDS: Lacosamide 100 MG Tablet PO ×2 (10:02→19:54)
[2021-10-08] MEDS: Memantine Hydrochloride 10 MG Tablet PO ×2 (10:02→19:50)
[2021-10-08] MEDS: Enoxaparin 40 MG/0.4 ML Syringe SC (10:02)
--- NOTE | 2021-10-08 10:21 | TREXTCAR_ITS ---
Documented by User: Jose VALENCIA 10/08/21 15:23 Diet 10/06/21 17:03 Diet: Regular - General Food consistency:: Regular Liquid Consistency:: Regular/Thin Type of Dietary Supplement:: Ensure Pudding Is pt able to select menu?: Yes Diet Comments: ES pudding BID w/ lunch and dinner/ ES compact all meals Wound(s) R leg: Wound Type: Abrasion coccyx: Wound Type: small blister (does not appear to be pressure related) Dressing Change: applied Mepilex Therapies Weight Bearing: Non weight bearing Physical Therapy: Eval and Treat Occupational Therapy: Eval and Treat Problem/Diagnosis (1) Debility: Status: Acute Allergies/Procedures Done in Hospital Allergies doxycycline Allergy (Mild, Verified 10/05/21 13:17) Vomiting oxycodone [From Percocet] Allergy (Mild, Verified 10/05/21 13:17) Confusion acetaminophen [From Darvocet-N] Allergy (Verified 10/05/21 13:17) Other lamotrigine [From Lamictal] Allergy (Verified 10/05/21 13:17) Lip Swelling latex Allergy (Verified 10/05/21 13:17) Rash moxifloxacin HCl [From Avelox] Allergy (Verified 10/05/21 13:17) Other propoxyphene napsylate [From Darvocet-N] Allergy (Verified 10/05/21 13:17) Other zolpidem tartrate [From Ambien] Adverse Reaction (Verified 10/05/21 13:17) Other Type of Care/Length of Stay Estimated LOS: Convalescent Care Less Than 30 days Type of Care Needed: Skilled Rehab Potential: Good Prognosis: Good Additional Orders/Day of Discharge Day of Discharge: 10/08/21 Dietary and Speech Recommendations Dietitian Recommendations/Changes: Will liberalize diet to Regular due to signs and symptoms of malnutrition. Will add ensure pudding BID w/ meals. Will continue ensure compact 4 times per day w/ medpass as ordered. Consider consult to speech/SUGAR PLANTATION MANAGER for swallowing evaluation given patient history of esophageal dysphagia. Discharge Plan Admission Admit Date/Time: 10/05/21 16:56 Primary Reason for Your Visit: Generalized weakness Attending Provider: Demetrius Duffy Primary Care Provider: Arun Ramos Chi Discharge Orders/Prescriptions Prescriptions: Continued Vimpat 100 mg tablet 100 mg PO BID RF: 0 Myrbetriq 50 mg tablet extended release 24 hr 100 mg PO QHS RF: 0 tolterodine [Detrol LA] 4 mg capsule,extended release 24hr 4 mg PO DAILY RF: 0 memantine 10 mg tablet 10 mg PO BID RF: 0 (DME) PEP device See Rx Instructions .ROUTE .MEDSUPPLY Qty: 1 RF: 0 atorvastatin 40 mg tablet 40 mg PO QHS RF: 0 levothyroxine [Synthroid] 25 mcg Tablet 25 mcg PO DAILY RF: 0 cholecalciferol (vitamin D3) [Vitamin D3] 25 mcg (1,000 unit) Capsule 25 mcg PO DAILY RF: 0 Probiotic Blend 2 billion cell-50 mg Capsule 1 cap PO DAILY RF: 0 gabapentin 100 mg capsule 100 mg PO QHS RF: 0 albuterol sulfate 2.5 mg /3 mL (0.083 %) Solution For Nebulization 2.5 mg inhalation Q6H PRN (Reason: Sob &/Or Wheezing) Qty: 0 RF: 0 pramipexole 0.5 mg Tablet 0.5 mg PO TID 30 Days Qty: 90 RF: 0 potassium chloride [Klor-Con M20] 20 mEq Tablet,Er Particles/Crystals 20 meq PO DAILYCM 30 Days Qty: 30 RF: 0 mirtazapine 15 mg Tablet 7.5 mg PO QHS 30 Days Qty: 15 RF: 0 Trintellix 20 mg tablet 20 mg PO DAILY RF: 0 Referrals / Follow Up: Arun Ramos Chi, MD [Primary Care Provider] - Within 2 Weeks Disposition Disposition (needs filled in before D/C Order can be placed): Retirement Facility Documented by User: Dr. Demetrius Duffy MD 10/08/21 16:50 Allergies/Procedures Done in Hospital Allergies doxycycline Allergy (Mild, Verified 10/05/21 13:17) Vomiting oxycodone [From Percocet] Allergy (Mild, Verified 10/05/21 13:17) Confusion acetaminophen [From Darvocet-N] Allergy (Verified 10/05/21 13:17) Other lamotrigine [From Lamictal] Allergy (Verified 10/05/21 13:17) Lip Swelling latex Allergy (Verified 10/05/21 13:17) Rash moxifloxacin HCl [From Avelox] Allergy (Verified 10/05/21 13:17) Other propoxyphene napsylate [From Darvocet-N] Allergy (Verified 10/05/21 13:17) Other zolpidem tartrate [From Ambien] Adverse Reaction (Verified 10/05/21 13:17) Other Discharge Plan Admission Admit Date/Time: 10/05/21 16:56 Primary Reason for Your Visit: Generalized weakness Attending Provider: Demetrius Duffy Primary Care Provider: Arun Ramos Chi Discharge Orders/Prescriptions Prescriptions: Continued Vimpat 100 mg tablet 100 mg PO BID RF: 0 Myrbetriq 50 mg tablet extended release 24 hr 100 mg PO QHS RF: 0 tolterodine [Detrol LA] 4 mg capsule,extended release 24hr 4 mg PO DAILY RF: 0 memantine 10 mg tablet 10 mg PO BID RF: 0 (DME) PEP device See Rx Instructions .ROUTE .MEDSUPPLY Qty: 1 RF: 0 atorvastatin 40 mg tablet 40 mg PO QHS RF: 0 levothyroxine [Synthroid] 25 mcg Tablet 25 mcg PO DAILY RF: 0 cholecalciferol (vitamin D3) [Vitamin D3] 25 mcg (1,000 unit) Capsule 25 mcg PO DAILY RF: 0 Probiotic Blend 2 billion cell-50 mg Capsule 1 cap PO DAILY RF: 0 gabapentin 100 mg capsule 100 mg PO QHS RF: 0 albuterol sulfate 2.5 mg /3 mL (0.083 %) Solution For Nebulization 2.5 mg inhalation Q6H PRN (Reason: Sob &/Or Wheezing) Qty: 0 RF: 0 pramipexole 0.5 mg Tablet 0.5 mg PO TID 30 Days Qty: 90 RF: 0 potassium chloride [Klor-Con M20] 20 mEq Tablet,Er Particles/Crystals 20 meq PO DAILYCM 30 Days Qty: 30 RF: 0 mirtazapine 15 mg Tablet 7.5 mg PO QHS 30 Days Qty: 15 RF: 0 Trintellix 20 mg tablet 20 mg PO DAILY RF: 0 Referrals / Follow Up: Arun Ramos Chi, MD [Primary Care Provider] - Within 2 Weeks Disposition Disposition (needs filled in before D/C Order can be placed): Retirement Facility
--- NOTE | 2021-10-08 11:24 | CASEMGMT ---
Social Work Note SW updated that pt's Misael is present at [facility] and requesting to speak with this worker. SW in to speak with pt and Misael. Misael states he went to [facility] today, was told admissions is out today, and then was told that [facility] has no beds available. Misael states he was told that maybe by the end of the week they would have a bed available, asked what the next steps are. YOANDY informed Misael that medically pt is ready for discharge, cannot stay at [facility] until a bed becomes available at [facility]. YOANDY informed Misael that pt would need to go to a different SNF until a bed becomes available at [facility]. Misael asked about [facility] TCU. YOANDY informed Misael that per previous notes, [facility] TCU is not able to accept pt back. Misael asked about taking pt home until a bed becomes available at [facility]. YOANDY informed Misael that it would then be a community fci placement which can be more difficult that discharging pt to SNF from [facility]. Misael states he needs another list of SNF and will call his sister in law to determine next options. Patient was provided a list of SNF providers including quality and resource use data and consistent with the patient?s preferred geographic region, medical needs, and insurance network. YOANDY informed Misael that this worker will be back later today. Misael states understanding. Plan: SNF pending acceptance Marleen Kaur MSW, ROGUER
[2021-10-08] MEDS: 0.9% Normal Saline 1,000 ML 75 ML IV (12:10)
--- NOTE | 2021-10-08 12:31 | PCM.PN.HOSP ---
Documented by User: Joes VALENCIA 10/08/21 12:35 Subjective Subjective Patient is a 81-year-old female comfortably resting in bed, alert and orient x3. Patient denies development of any new symptoms overnight. Does not appear in acute distress. Objective Data Objective Data Vital Signs: Vital Signs Temp Pulse Resp BP Pulse Ox 97.7 F L 80 16 155/88 H 92 10/08/21 07:57 10/08/21 07:57 10/08/21 07:57 10/08/21 07:57 10/08/21 08:17 Oxygen Flow Rate (L/min) 2 Oxygen Delivery Method Room Air Weight: 123 lb 0.287 oz Body Mass Index (BMI) 24.8 Intake & Output: Intake and Output for Last 24 Hours 10/06/21 10/07/21 10/08/21 23:59 23:59 23:59 Intake Total 2000.25 / 2101.25 2152.50 / 2152.50 Output Total 500 / 600 275 / 275 1025 / 1025 Balance 1501.25 / 1501.25 1877.50 / 1877.50 -1025 / -1025 Medical Nutrition Assessment Dietitian: Malnutrition Criteria Met Start: 10/06/21 17:03 Freq: Status: Active Protocol: Document 10/06/21 17:03 RMA (Rec: 10/06/21 17:03 RMA [id number]) Nutrition Malnutrition Evidence of Malnutrition Exists Yes Malnutrition (severe): Chronic Evidenced By Suboptimal Energy Intake ( Severe),Weight Loss (Severe) Clinical Problem Chronic Disease or Condition Related Malnutrition Etiology Severe protein-calorie malnutrition in the context of weakness/debility/chronic illness related to inadequate oral intake Signs/Symptoms as evidenced by PO less than 50% estimated nutrition needs and ~12-13% wt loss x past 6-7 months Status Active Problem Recommendation Dietitian Recommendations/Changes Will liberalize diet to Regular due to signs and symptoms of malnutrition. Will add ensure pudding BID w/ meals. Will continue ensure compact 4 times per day w/ medpass as ordered. Consider consult to speech/DYE AND CHEMICAL COORDINATOR for swallowing evaluation given patient history of esophageal dysphagia. Lab / Micro Data Result Diagrams: 10/06/21 05:53 10/06/21 05:53 Micro: Microbiology 10/05/21 14:18 Nasal Secretion SARS-CoV-2 Antigen (Rapid) - Final Physical Exam Const alert, oriented x3 and no apparent distress HEENT head/scalp atraumatic and moist oral mucous membranes Head and Scalp: normocephalic Eyes PERRL and conjunctivae normal Neck no lymphadenopathy, supple and no JVD Resp normal respiratory effort, no retractions and no use of accessory muscles Cardio regular rate, regular rhythm and no JVD GI normal to inspection, nondistended, normoactive bowel sounds Extremity normal to inspection Skin no rashes or lesions noted Neuro CN's II-XII intact bilaterally Psych affect normal Assessment & Plan Assessment/Plan (1) Debility: PLAN: Day 3 Discharge planning: Current plan is for patient to discharge to SNF, CM/SW following. 1) adult failure to thrive/generalized weakness Patient discharged from TCU on 10/04 and feels that he cannot care for his at home. Patient was admitted for placement, PT/OT eval ordered, CM/SW following. 2) transient hypoxia Resolved, currently satting patient currently satting 92% on room air patient without any complaints of chest pain, palpitations, shortness of breath, sputum production, hemoptysis or lower extremity swelling/pain. Patient did test positive for Covid on 09/19, where she was given a 3-day course of remdesivir and was evaluated by infectious disease. Continue bronchodilators, supplemental O2 as needed. 3) history of COVID-19 infection Patient did test positive on 09/19 for COVID-19. Patient is vaccinated with booster against COVID-19. Was seen and treated by Dr. Chatterjee while in TCU, who initiated 3 days of remdesivir. 10 day quarantine completed prior to admission. 4) depression/anxiety Continue Remeron. 5) dementia Continue memantine. 6) seizure history Continue Vimpat. 7) hypothyroidism Continue Synthroid. 8) RLS Continue gabapentin. DVT prophylaxis - Lovenox Patient seen by Jose Jackson PA-C, under the supervision of Dr. Duffy. Time spent on patient care: 7 minutes. Documented by User: Dr. Demetrius Duffy MD 10/08/21 16:49 Objective Data Lab / Micro Data Result Diagrams: 10/06/21 05:53 10/06/21 05:53 Assessment & Plan Assessment/Plan (1) Debility: PLAN: Please detail physical exam and evaluation and discharge summary.
[2021-10-08] MEDS: Acetaminophen 325 MG Tablet 650 MG PO (13:13)
--- NOTE | 2021-10-08 13:30 | CASEMGMT ---
Social Work Note SW back in to speak with Misael. Misael states his next choices for SNF is either [facility] or [facility]. YOANDY informed Misael that typically the [facility] is full but this worker will send referral. YOANDY placed a call to [facility] and spoke with Anne Marie. Anne Marie states she is not sure if admissions is in today, YOANDY transferred to [facility]. Voicemail left for Annika in admissions. YOANDY faxed referral to [facility]. YOANDY placed a call to Ashley at [facility] and provided referral. YOANDY faxed referral to [facility]. Plan: SNF pending acceptance Marleen Kaur EVENT MARKETING MANAGER, [employer]Y [employer] YARDER
[2021-10-08 14:01] VITALS: BP 125/81; PULSE 99; RESP 16; TEMP 36.9; O2SAT 92
--- NOTE | 2021-10-08 14:30 | CASEMGMT ---
Social Work Note YOANDY received call from Ashley at [facility] and they can accept pt today. YOANDY still hasn't heard anything back from [facility]. YOANDY placed a call to pt's Misael and updated him that referrals were sent to both [facility] and [facility]. [facility] has not got back to this worker but [facility] is able to accept pt. Misael states he would prefer [facility]. YOANDY informed Misael that at this time, [facility] hasn't got back to this worker, pt is medically ready for discharge, and [facility] can accept pt today. Misael states understanding, agreeable to pt discharging to [facility] today. Misael asked about getting pt to [facility] from [facility]. YOANDY encouraged Misael to call [facility] and put pt on waitlist. YOANDY informed Misael that once a bed becomes available at [facility] then pt can transition to [facility] from [facility]. Misael states understanding YOANDY did speak with Kyler at [facility] earlier today who confirmed no beds available today. YOANDY updated physician. Plan: [facility] skilled today Marleen Kaur SALES CLOSER, MOLDER APPRENTICE
--- NOTE | 2021-10-08 15:23 | PCM.DC.SUM ---
Documented by User: Jose VALENCIA 10/08/21 15:28 Providers Date of Admission: 10/05/21 Date of Discharge: 10/08/21 Primary Care Physician: Dr. 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 Routine Comment: Reason for Consult:: blister on coccyx Reason For Visit: DEBILITY Diagnosis Discharge Diagnosis (1) Debility: Status: Acute Code(s): R53.81 - Other malaise Medications at Discharge Home Medications lacosamide 100 mg tablet 100 mg PO BID 06/28/20 mirabegron 50 mg tablet,extended release 24 hr 100 mg PO QHS tablet 11/06/20 tolterodine 4 mg capsule,extended release 24 hr 4 mg PO DAILY cap 11/06/20 atorvastatin 40 mg PO QHS 03/08/21 levothyroxine [Synthroid] 25 mcg PO DAILY 03/08/21 PEP device #1 ea 05/09/21 memantine 10 mg tablet 10 mg PO BID 05/09/21 Probiotic Blend 1 cap PO DAILY 09/02/21 cholecalciferol (vitamin D3) [Vitamin D3] 25 mcg PO DAILY 09/02/21 gabapentin 100 mg PO QHS 09/04/21 albuterol sulfate 2.5 mg INHALATION Q6H PRN #0 ml 09/25/21 mirtazapine 7.5 mg PO QHS 30 Days #15 tab 09/25/21 potassium chloride [Klor-Con M20] 20 meq PO DAILYCM 30 Days #30 tab 09/25/21 pramipexole 0.5 mg PO TID 30 Days #90 tab 09/25/21 Trintellix 20 mg PO DAILY 10/05/21 Hospital Course Summary of Care Provided Minutes Spent on Discharge: 20 Hospital Course: Patient is a 81-year-old female who was admitted to [facility] on 10/05/2021 for generalized weakness, debility and for placement. Course and management as below. 1) adult failure to thrive/generalized weakness Patient discharged from TCU on 10/04 and feels that he cannot care for his at home. Patient was admitted for placement. To discharge to SNF for ongoing skilled therapy and rehab. 2) transient hypoxia Resolved, currently satting patient currently satting 92% on room air patient without any complaints of chest pain, palpitations, shortness of breath, sputum production, hemoptysis or lower extremity swelling/pain. Patient did test positive for Covid on 09/19, where she was given a 3-day course of remdesivir and was evaluated by infectious disease. Continue bronchodilators, supplemental O2 as needed. 3) history of COVID-19 infection Patient did test positive on 09/19 for COVID-19. Patient is vaccinated with booster against COVID-19. Was seen and treated by Dr. Chatterjee while in TCU, who initiated 3 days of remdesivir. 10 day quarantine completed prior to admission. 4) depression/anxiety Continue Remeron. 5) dementia Continue memantine. 6) seizure history Continue Vimpat. 7) hypothyroidism Continue Synthroid. 8) RLS Continue gabapentin. Patient seen by Jose Jackson PA-C, under the supervision of Dr. Duffy. Time spent on patient care: 20 minutes. Physical Exam Narrative Patient is a 81-year-old female comfortably resting in bed, alert and orient x3. Patient denies development of any new symptoms overnight. Does not appear in acute distress. Const alert, oriented x3 and no apparent distress HEENT normocephalic, head/scalp atraumatic and hearing grossly normal bilaterally Eyes PERRL and conjunctivae normal Neck no lymphadenopathy, supple and no JVD Resp normal respiratory effort, no retractions and no use of accessory muscles Cardio regular rate, regular rhythm and no JVD GI normal to inspection, nondistended, normoactive bowel sounds Extremity normal to inspection Skin no rashes or lesions noted Neuro CN's II-XII intact bilaterally Psych affect normal Medical Records Data Medical Nutrition Assessment Dietitian: Malnutrition Criteria Met Start: 10/06/21 17:03 Freq: Status: Active Protocol: Document 10/06/21 17:03 RMA (Rec: 10/06/21 17:03 RMA [id number]) Nutrition Malnutrition Evidence of Malnutrition Exists Yes Malnutrition (severe): Chronic Evidenced By Suboptimal Energy Intake ( Severe),Weight Loss (Severe) Clinical Problem Chronic Disease or Condition Related Malnutrition Etiology Severe protein-calorie malnutrition in the context of weakness/debility/chronic illness related to inadequate oral intake Signs/Symptoms as evidenced by PO less than 50% estimated nutrition needs and ~12-13% wt loss x past 6-7 months Status Active Problem Recommendation Dietitian Recommendations/Changes Will liberalize diet to Regular due to signs and symptoms of malnutrition. Will add ensure pudding BID w/ meals. Will continue ensure compact 4 times per day w/ medpass as ordered. Consider consult to speech/DINKEY ENGINE FIRER for swallowing evaluation given patient history of esophageal dysphagia. Weight / BMI Weight Weight: 123 lb 0.287 oz Body Mass Index (BMI) 24.8 ABG / Lab / Microbiology Data Result Diagrams: 10/06/21 05:53 10/06/21 05:53 Microbiology: Microbiology 10/05/21 14:18 Nasal Secretion SARS-CoV-2 Antigen (Rapid) - Final Meaningful Use Info Meaningful Use Diagnoses (Choose all that apply): None applicable Discharge Plan Admission Admit Date/Time: 10/05/21 16:56 Primary Reason for Your Visit: Generalized weakness Attending Provider: Demetrius Duffy Primary Care Provider: Arun Ramos Chi Discharge Orders/Prescriptions Prescriptions: Continued Vimpat 100 mg tablet 100 mg PO BID RF: 0 Myrbetriq 50 mg tablet extended release 24 hr 100 mg PO QHS RF: 0 tolterodine [Detrol LA] 4 mg capsule,extended release 24hr 4 mg PO DAILY RF: 0 memantine 10 mg tablet 10 mg PO BID RF: 0 (DME) PEP device See Rx Instructions .ROUTE .MEDSUPPLY Qty: 1 RF: 0 atorvastatin 40 mg tablet 40 mg PO QHS RF: 0 levothyroxine [Synthroid] 25 mcg Tablet 25 mcg PO DAILY RF: 0 cholecalciferol (vitamin D3) [Vitamin D3] 25 mcg (1,000 unit) Capsule 25 mcg PO DAILY RF: 0 Probiotic Blend 2 billion cell-50 mg Capsule 1 cap PO DAILY RF: 0 gabapentin 100 mg capsule 100 mg PO QHS RF: 0 albuterol sulfate 2.5 mg /3 mL (0.083 %) Solution For Nebulization 2.5 mg inhalation Q6H PRN (Reason: Sob &/Or Wheezing) Qty: 0 RF: 0 pramipexole 0.5 mg Tablet 0.5 mg PO TID 30 Days Qty: 90 RF: 0 potassium chloride [Klor-Con M20] 20 mEq Tablet,Er Particles/Crystals 20 meq PO DAILYCM 30 Days Qty: 30 RF: 0 mirtazapine 15 mg Tablet 7.5 mg PO QHS 30 Days Qty: 15 RF: 0 Trintellix 20 mg tablet 20 mg PO DAILY RF: 0 Referrals / Follow Up: Arun Ramos Chi, MD [Primary Care Provider] - Within 2 Weeks Disposition Disposition (needs filled in before D/C Order can be placed): [facility] Documented by User: Dr. Demetrius Duffy MD 10/08/21 16:57 Providers Date of Admission: 10/05/21 Reason For Visit: DEBILITY Medications at Discharge Home Medications lacosamide 100 mg tablet 100 mg PO BID 06/28/20 mirabegron 50 mg tablet,extended release 24 hr 100 mg PO QHS tablet 11/06/20 tolterodine 4 mg capsule,extended release 24 hr 4 mg PO DAILY cap 11/06/20 atorvastatin 40 mg PO QHS 03/08/21 levothyroxine [Synthroid] 25 mcg PO DAILY 03/08/21 PEP device #1 ea 05/09/21 memantine 10 mg tablet 10 mg PO BID 05/09/21 Probiotic Blend 1 cap PO DAILY 09/02/21 cholecalciferol (vitamin D3) [Vitamin D3] 25 mcg PO DAILY 09/02/21 gabapentin 100 mg PO QHS 09/04/21 albuterol sulfate 2.5 mg INHALATION Q6H PRN #0 ml 09/25/21 mirtazapine 7.5 mg PO QHS 30 Days #15 tab 09/25/21 potassium chloride [Klor-Con M20] 20 meq PO DAILYCM 30 Days #30 tab 09/25/21 pramipexole 0.5 mg PO TID 30 Days #90 tab 09/25/21 Trintellix 20 mg PO DAILY 10/05/21 Hospital Course Summary of Care Provided Hospital Course: This patient was seen in conjunction with ERIK Cowart. I have independently interviewed and examined the patient and reviewed pertinent history, examination findings, laboratory and plan of management. I have reviewed the note and agree with the documented findings with the few additional points. In brief, patient is 81-year-old female admitted with generalized weakness, debility, recurrent fall with diffuse degenerative arthritis of knees hips, small joints of finger, kyphosis and osteoporosis. Patient admitted to [facility] floor. PT and OT evaluation and treatment was done. lodging facilities manager consulted. Overall evaluation is made for transfer to SNF. Patient also had transient hypoxemia that was resolved with no chest pain, palpitation or shortness of breath, cough sputum production lower extremity edema. Patient had history of COVID-19 infection, tested positive on 09/19. Patient is vaccinated and boosted for COVID-19. Patient completed treatment with 3 days of remdesivir in TCU. Patient completed quarantine. 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 Discharge medication reconciliation done. Discharge follow-up instructions completed. Discharge process discussed with the patient and all questions were answered to patient's satisfaction. Discharged to SNF Total time spent, 40 minutes on discharge meds reconciliation, examination, coordination of care with nurses and ancillary staff, review of imaging and blood test and discussion with the patient on follow-up instructions I spent 25 minutes, more than half time and PA spent 15 minutes I have discussed my assessment with ERIK Cowart and orders have been reviewed. Physical Exam Narrative Seen and examined Patient has recurrent fall, generalized weakness and debilitated. She has generalized arthritis of knees and hip joints. She has kyphotic back with osteoporosis Physical exam General: Alert, Oriented x3, Cooperative HEENT: Atraumatic, PERRLA, EOMI, Normocephalic Oral: No Gingival or Mucosal Lesions/ Ulcerations Neck: Supple, No JVD, Negative Carotid Bruits Lungs: Air entry diminished in bilateral lung bases. No crepitation/rhonchi Cardiovascular: Regular rate, Regular Rhythm, Normal S1, Normal S2, No murmurs Abdomen: Bowel Sounds Present, Soft, Non Tender, Non-Distended : No renal angle tenderness. No suprapubic tenderness. Extremities: No edema, Capillary Refill Less than 3 Seconds Skin: No rashes, No breakdown Musculoskeletal: Bony irregularity and deformity of bilateral knee joints, metacarpal and interphalangeal joints of both upper and lower extremities. No Tenderness to Palpation of Joints or Extremities Neurological: Cranial nerves II-XII grossly intact, DTR 2+/4 and Symmetrical, Neuro grossly intact Psych/Mental Status: Flat affect. ABG / Lab / Microbiology Data Result Diagrams: 10/06/21 05:53 10/06/21 05:53 Discharge Plan Admission Admit Date/Time: 10/05/21 16:56 Primary Reason for Your Visit: Generalized weakness Attending Provider: Demetrius Duffy Primary Care Provider: Arun Ramos Chi Discharge Orders/Prescriptions Prescriptions: Continued Vimpat 100 mg tablet 100 mg PO BID RF: 0 Myrbetriq 50 mg tablet extended release 24 hr 100 mg PO QHS RF: 0 tolterodine [Detrol LA] 4 mg capsule,extended release 24hr 4 mg PO DAILY RF: 0 memantine 10 mg tablet 10 mg PO BID RF: 0 (DME) PEP device See Rx Instructions .ROUTE .MEDSUPPLY Qty: 1 RF: 0 atorvastatin 40 mg tablet 40 mg PO QHS RF: 0 levothyroxine [Synthroid] 25 mcg Tablet 25 mcg PO DAILY RF: 0 cholecalciferol (vitamin D3) [Vitamin D3] 25 mcg (1,000 unit) Capsule 25 mcg PO DAILY RF: 0 Probiotic Blend 2 billion cell-50 mg Capsule 1 cap PO DAILY RF: 0 gabapentin 100 mg capsule 100 mg PO QHS RF: 0 albuterol sulfate 2.5 mg /3 mL (0.083 %) Solution For Nebulization 2.5 mg inhalation Q6H PRN (Reason: Sob &/Or Wheezing) Qty: 0 RF: 0 pramipexole 0.5 mg Tablet 0.5 mg PO TID 30 Days Qty: 90 RF: 0 potassium chloride [Klor-Con M20] 20 mEq Tablet,Er Particles/Crystals 20 meq PO DAILYCM 30 Days Qty: 30 RF: 0 mirtazapine 15 mg Tablet 7.5 mg PO QHS 30 Days Qty: 15 RF: 0 Trintellix 20 mg tablet 20 mg PO DAILY RF: 0 Referrals / Follow Up: Arun Ramos Chi, MD [Primary Care Provider] - Within 2 Weeks Disposition Disposition (needs filled in before D/C Order can be placed): [facility] Charges/Coding Visit Charges Inpatient E&M: 35547 Disch Hosp
--- NOTE | 2021-10-08 15:25 | CASEMGMT ---
Social Work SW completed the PAS/RR, printed this along w/results, further review not needed. SW set up an ambulance for 5:30. SW let pt know, she is agreeable to [facility] today at 5:30pm. SW let bedside RN know pickup time of 5:30pm. SW called [facility], Ashley is not in today. SW let the executive receptionist know the time of pickup, and she will let the nurses know. SW called Misael, let him know the pickup time. He plans to be here at time of transport. KELTON West
--- NOTE | 2021-10-08 15:30 | CASEMGMT ---
Addendum entered by Marleen Kaur 10/08/21 17:03: Transportation form is on pt's SNF folder. Original Note: Social Work Note SW faxed completed discharge paperwork to [facility] including transfer to extended care facility, signed medication list, any scripts, COVID tool, PAS/RR, and PAS/RR results. Original in SNF folder and copy on pt's chart. YOANDY spoke with Ashley at [facility], another COVID test is not needed. Transportation form on pt's chart. Marleen Kaur QUARANTINE OFFICER, SENIOR FINANCIAL CONSULTANT
[2021-10-08] MEDS: Gabapentin 100 MG Capsule PO (19:49)
[2021-10-08] MEDS: Mirabegron 50 MG TAB.ER.24H 100 MG PO (19:49)
[2021-10-08] MEDS: Atorvastatin Calcium 40 MG Tablet PO (19:49)
[2021-10-08] MEDS: Mirtazapine 15 MG Tablet 7.5 MG PO (19:50)
[2021-10-08 20:03] VITALS: BP 134/88; PULSE 81; RESP 20; TEMP 36.5; O2SAT 92
== END 2021-10-08 21:05 | disposition skilled nursing facility (03) ==
LOC: ED 17:02 → MS3 17:20
PROVIDERS: Admitting Provider Family Medicine; Emergency Provider Emergency Medicine; PCP Family Medicine Geriatric Medicine; Visit Provider Internal Medicine
DX: R53.81 Other malaise (principal); F03.90 Unspecified dementia, unspecified severity, without behavioral disturbance, psychotic disturbance, mood disturbance, and anxiety; G40.909 Epilepsy, unspecified, not intractable, without status epilepticus; M81.0 Age-related osteoporosis without current pathological fracture; M94.0 Chondrocostal junction syndrome [Tietze]; E03.9 Hypothyroidism, unspecified; R62.7 Adult failure to thrive; F41.9 Anxiety disorder, unspecified; M16.0 Bilateral primary osteoarthritis of hip; G25.81 Restless legs syndrome; R09.02 Hypoxemia; N39.0 Urinary tract infection, site not specified; M40.209 Unspecified kyphosis, site unspecified; I10 Essential (primary) hypertension; E78.00 Pure hypercholesterolemia, unspecified; Z79.899 Other long term (current) drug therapy; Z79.890 Hormone replacement therapy; K21.9 Gastro-esophageal reflux disease without esophagitis; I25.2 Old myocardial infarction; Z86.16 Personal history of COVID-19
CPT/HCPCS: 36415; 71045; 80048; 80053; 81001; 84484; 85025; 87426; 93005; 96360; 96361; 96372; 97110; 97116; 97162; 97166; 97530; 97535; 97802; 99218; 99285; J7030; A4216; G0378

== ENCOUNTER 2021-11-23 10:17 | Outpatient (CLI) | payer MEDICARE, OTHER, SELFPAY ==
[2021-11-23 12:41] LABS: Absolute Neutrophil Count 10.2 X10^3/uL (2.0-7.7); Basophil# 0.04 X10^3/uL; Basophil% 0.3 % (0-1); Eosinophil# 0.04 X10^3/uL; Eosinophils% 0.3 % (0-5); Lymphocyte % 14.7 % (19-41); Mean Corp Hgb Conc 32.5 g/dL (32-36); Mean Corpuscular Hgb 30.3 pg (27.0-32.0); Mean Corpuscular Volume 93.2 fL (81-99); Mean Platelet Vol. 11.3 fl (6.2-12.0); Monocyte# 0.69 X10^3/uL; Monocyte% 5.3 % (0-10); NRBC Flagged by Analyzer 0 % (0-5); Neutrophil # 10.19 X10^3/uL (2.7-7.7); Neutrophil % 78.9 % (47-70); Platelet Count 209 K/mm3 (150-450); RBC Distribution Width CV 13.3 % (11.6-14.6); RBC Distribution Width SD 45.5 fl (35.1-43.9); Red Blood Count 4.29 M/mm3 (4.2-5.4); White Blood Count 12.9 K/mm3 (4.4-11.0)
[2021-11-23 13:04] LABS: ALB/GLOB Ratio 0.7 RATIO (0.9-2.4); AST(SGOT) 20 U/L (15-37); Alanine Aminotransfer ALT/SGPT 15 U/L (13-56); Alkaline Phosphatase 139 U/L (45-117); Anion Gap 9 (5-15); BUN 18 mg/dL (7-18); BUN/Creat Ratio 20.4 RATIO (10-20); Calcium,Total 8.9 mg/dL (8.5-10.1); Chloride 105 mmol/L (98-107); Creatinine, Serum 0.88 mg/dL (0.55-1.02); EST Glomerular Filtration Rate 66 mL/min (>60); Est Glom Filt Rate - Afr Amer 80 mL/min (>60); Globulin 4.5 g/dL (2.2-4.2); Glucose 101 mg/dL (74-106); Potassium 3.6 mmol/L (3.5-5.1); Protein, Total 7.5 g/dL (6.4-8.2); Sodium Level 135 mmol/L (136-145); Thyroid Stim Hormone (TSH) 2.66 uIU/mL (0.358-3.74)
[2021-11-23 13:11] LABS: Vitamin D,25 Hydroxy 46.1 ng/mL
== END 2021-11-23 23:59 | disposition home or self-care (01) ==
LOC: POLAB3 10:18
PROVIDERS: PCP Family Medicine Geriatric Medicine; Visit Provider Family Medicine Geriatric Medicine
DX: E55.9 Vitamin D deficiency, unspecified (principal); R53.83 Other fatigue
CPT/HCPCS: 36415; 80053; 82306; 84443; 85025

== ENCOUNTER 2021-11-23 12:32 | Outpatient (CLI) | payer MEDICARE, OTHER, SELFPAY | END 2021-11-23 23:59 | disposition home or self-care (01) | LOC: CT 12:33 | PROVIDERS: PCP Family Medicine Geriatric Medicine; Visit Provider Family Medicine Geriatric Medicine | DX: I26.99 Other pulmonary embolism without acute cor pulmonale (principal) ==

== ENCOUNTER 2021-11-26 10:31 | Outpatient (CLI) | payer MEDICARE, OTHER, SELFPAY ==
--- NOTE | 2021-11-26 10:33 | CT_ITS ---
STUDY: CTA CHEST REASON FOR EXAM: Female, 81 years old. SUSPECTED PE RADIATION DOSAGE (If Supplied By Facility): CTDIvol = ( 6.93 ) mGy, DLP = ( 236.79 ) mGycm TECHNIQUE: The examination was performed with the intravenous administration of IV 100mL Isovue-370. Post-processing of the angiographic images was performed, with multiplanar reformation and 3D reconstruction. Individualized dose optimization techniques were used for this CT. COMPARISON: Comparison is made with prior study dated 03/08/2021. FINDINGS: Intraluminal filling defects are seen within branches of the left lower lobe pulmonary artery extending into the left ulnar artery. Intraluminal filling defects are also seen in branches of the right upper lobe pulmonary artery. Normal thoracic aorta and visualized great vessels. There is no demonstrated aortic dissection. There are calcifications of the coronary arteries. Normal mediastinum. Normal hilar regions. Normal visualized trachea and bronchi. The lungs are well expanded. Small left pleural effusion. Bibasilar atelectasis is worse at the left lung base. Focal infiltrate is seen in the lingular segment of the left upper lobe. Normal pleura. Normal chest wall structures. There are degenerative changes of thoracic spine. Increased kyphosis. Loss of right of mid dorsal vertebrae. Prior vertebroplasty of the L1 vertebrae. Large hiatal hernia. CT/CTA Chest W/WO Contrast IMPRESSION: Pulmonary emboli seen in the right upper lobe arteries as well as in the left lower lobe pulmonary arteries. Small left pleural effusion with bibasilar infiltration and/or atelectasis and infiltrate in the lingular segment of the left upper lobe. Large hiatal hernia. Electronically Signed: Sam Mac MD at 11:18 EDT ,
== END 2021-11-26 23:59 | disposition home or self-care (01) ==
LOC: CT 10:31
PROVIDERS: PCP Family Medicine Geriatric Medicine; Referring Provider Family Medicine Geriatric Medicine; Visit Provider Family Medicine Geriatric Medicine
DX: I26.99 Other pulmonary embolism without acute cor pulmonale (principal)
CPT/HCPCS: 71275; Q9967; A4216

== ENCOUNTER → 2022-02-07 | Outpatient (CLI) | payer MEDICARE, OTHER, SELFPAY ==
--- NOTE | 2022-02-07 14:01 | PFTCOMP_ITS ---
COMPLETE PULMONARY FUNCTION TEST INTERPRETATION Brief HPI: Patient is a 81-year-old female, currently under the care of Sandra Vincent, who presents to [facility] for complete pulmonary function tests secondary to diagnosis of COPD. Respiratory therapist reports good effort and reproducible results. Interpretation: Forced expiration spirometry shows a moderate large airways obstructive ventilatory defect with an FEV1 of 67% predicted. There is no significant bronchodilator response by strict ATS criteria. Spirograms are of good quality and plateau normally. The respiratory flow volume loop shows decreased expiratory flow rates at high lung volumes consistent with small airways o bstruction. Lung volumes by body plethysmography show a normal total lung capacity at 4.80 L, 86% predicted. FRC and RV are elevated out of proportion. Lung volume measurements are consistent with air-trapping. Diffusion capacity by carbon monoxide is at the lower limit of normal at 64% predicted. The airway resistance is elevated. Compared to previous pulmonary function tests from 10/12/2020, there has been no significant change. Impression: Moderate obstructive ventilatory defect with a symmetric reduction diffusion capacity and no significant change compared to 2020.
== END | disposition home or self-care (01) ==
LOC: PSN 12:26
PROVIDERS: PCP Family Medicine Geriatric Medicine; Referring Provider Nurse Practitioner Acute Care; Visit Provider Nurse Practitioner Acute Care
DX: J44.9 Chronic obstructive pulmonary disease, unspecified (principal); R06.02 Shortness of breath
CPT/HCPCS: 94060; 94726; 94729

== ENCOUNTER → 2022-02-14 | Outpatient (CLI) | payer MEDICARE, OTHER, SELFPAY ==
[2022-02-14 15:46] LABS: Iron 73 ug/dL (50-170)
[2022-02-14 15:47] LABS: Vitamin B12 318 pg/mL (211-911)
== END | disposition home or self-care (01) ==
LOC: POLAB3 13:39
PROVIDERS: PCP Family Medicine Geriatric Medicine; Visit Provider Family Medicine Geriatric Medicine
DX: R53.83 Other fatigue (principal); D64.9 Anemia, unspecified
CPT/HCPCS: 36415; 82607; 83540

== ENCOUNTER 2022-02-15 09:46 | Emergency (ER) | payer MEDICARE, OTHER, SELFPAY ==
[2022-02-15 09:48] VITALS: BP 125/81; PULSE 101; RESP 16; TEMP 36.8; O2SAT 93; BMI 24.9
--- NOTE | 2022-02-15 10:20 | EX.ED.DYSGE1 ---
HPI History of Present Illness Chief Complaint: Chest Other Detail of Chief Complaint: weak/fatigue Informant: patient and spouse/S.O. Onset/Context/Timing Onset: Yesterday Timing: Continuous Current Severity: Mild Maximum Severity: Moderate Narrative Narrative: For the past several days or so, patient has been having episodes of lightheadedness. Went to PCP yesterday and told she was probably dehydrated and given IV fluids in the office. This morning upon waking up, states that she was incontinent in the bed of urine. He states this is not unusual except there was a lot more than usual there, and upon getting her up she was slower to awaken and was fairly lethargic for a little while. She has vascular dementia and does not walk on her own, she requires assistance, even when using a walker, and usually uses a chair to get around. He got her to and from the bathroom and after using the bathroom, walking out he checked her vital signs and her pulse ox was normal at 95, she never went below the 90s, but her heart rate was 105. The heart rate the states is the primary reason for bringing her into the emergency department. He states that she is more alert now and more like herself. While in the office yesterday she received her fourth COVID vaccination/booster injection. Very limited ROS from the patient given her dementia, she states she does not feel lightheaded or dizzy right now. states whenever she has been dizzy she has had no vomiting or complaint of spinning, just faint. She denies any physical symptoms at this time while resting. During my evaluation, her heart rate is 98 and regular. Has a history of bronchiectasis, states she has had a chronic cough that is relatively minor and no worse than usual lately without any apparent dyspnea. [facility] Medical History aquired autoimmune encephalopathy Arthritis Asthma Back pain Bladder disease Cancer Cardiology follow-up encounter Dementia Dementia Depression Difficulty swallowing DVT (deep venous thrombosis) Falls Falls frequently Gastric reflux h/o back surgery Health care maintenance Heart disease High cholesterol History of heart attack History of stress test Hx of echocardiogram Hypertension Low iron Non-smoker Partial complex seizures Restless legs Seizures Shortness of breath on exertion TIA (transient ischemic attack) Walker as ambulation aid Home Medications lacosamide 100 mg tablet (Vimpat) 100 mg PO BID Check with primary doctor 06/28/20 [History Last Taken 10/05/21] mirabegron 50 mg tablet,extended release 24 hr (Myrbetriq) 100 mg PO QHS Check with primary doctor 11/06/20 [History Last Taken 10/04/21] atorvastatin 40 mg tablet 40 mg PO QHS Cholesterol 03/08/21 [History Last Taken 10/04/21] levothyroxine 25 mcg tablet (Synthroid) 25 mcg PO DAILY Thyroid 03/08/21 [History Last Taken 10/05/21] PEP device #1 ea 05/09/21 [Rx Last Taken Unknown] memantine 10 mg tablet 10 mg PO BID Alzheimer's 05/09/21 [History Last Taken 10/05/21] L.acidophil-L.casei-B.bifid-B.longum-FOS 2 billion cell-50 mg capsule (Probiotic Blend) 1 cap PO DAILY Supplement 09/02/21 [History Last Taken 10/05/21] cholecalciferol (vitamin D3) 25 mcg (1,000 unit) capsule (Vitamin D3) 25 mcg PO DAILY Supplement 09/02/21 [History Last Taken 10/05/21] gabapentin 100 mg capsule 100 mg PO QHS Nerve Pain 09/04/21 [History Last Taken 10/03/21] mirtazapine 15 mg tablet 7.5 mg PO QHS 30 days #15 tabs 09/25/21 [Rx Last Taken 10/03/21] potassium chloride 20 mEq tablet,extended release(part/cryst) (Klor-Con M) 20 meq PO DAILYCM 30 days #30 tabs 09/25/21 [Rx Last Taken 10/04/21] pramipexole 0.5 mg tablet 0.5 mg PO TID 30 days #90 tabs 09/25/21 [Rx Last Taken 10/05/21] vortioxetine 20 mg tablet (Trintellix) 20 mg PO DAILY DEPRESSION 10/05/21 [History Last Taken 10/05/21] bisacodyl 10 mg rectal suppository 10 mg KY DAILY PRN 11/07/21 [History Last Taken Unknown] magnesium hydroxide 400 mg/5 mL oral suspension (Milk of Magnesia) 30 ml PO DAILY PRN 11/07/21 [History Last Taken Unknown] mineral oil (Fleet Mineral Oil) 118 ml KY DAILY PRN 11/07/21 [History Last Taken Unknown] oxybutynin chloride 10 mg tablet,extended release 24 hr 10 mg PO DAILY 11/07/21 [History Last Taken Unknown] apixaban 5 mg tablet (Eliquis) 5 mg PO BID 01/10/22 [History Last Taken Unknown] aspirin 81 mg tablet,delayed release (Adult Aspirin Regimen) 81 mg PO DAILY 01/10/22 [History Last Taken Unknown] tolterodine 4 mg capsule,extended release 24 hr (Detrol LA) 4 mg PO DAILY 01/10/22 [History Last Taken Unknown] albuterol sulfate 2.5 mg (3 mL) inhalation Q6H PRN Sob &/Or Wheezing #180 mL 02/11/22 [Rx Last Taken Unknown] sulfamethoxazole 800 mg-trimethoprim 160 mg tablet 1 tab PO BID #6 TABLETS 02/15/22 [Rx Last Taken Unknown] Allergy/AdvReac Type Severity Reaction Status Date / Time doxycycline Allergy Mild Vomiting Verified 02/15/22 09:48 oxycodone [From Percocet] Allergy Mild Confusion Verified 02/15/22 09:48 acetaminophen Allergy Other Verified 02/15/22 09:48 [From Darvocet-N] lamotrigine [From Lamictal] Allergy Lip Verified 02/15/22 09:48 Swelling latex Allergy Rash Verified 02/15/22 09:48 moxifloxacin HCl Allergy Other Verified 02/15/22 09:48 [From Avelox] propoxyphene napsylate Allergy Other Verified 02/15/22 09:48 [From Darvocet-N] zolpidem tartrate AdvReac Other Verified 02/15/22 09:48 [From Ambien] Family History Mother CVA (cerebral vascular accident) Father Myocardial infarction Surgical History H/O heart artery stent H/O kyphoplasty History of appendectomy History of cardiac catheterization History of esophagogastroduodenoscopy (EGD) History of laryngoscopy History of lumpectomy of left breast Hx of cataract extraction Hx of colonoscopy Hx of ventral hernia repair Social History household members: spouse housing: house Smoking Status: Never smoker alcohol intake: current alcohol intake frequency: a few times a week do you feel safe at home: Yes ROS ROS ED Constitutional Constitutional ED: Reports malaise; Denies chills or fever(s) Eyes Eyes: Denies change in vision or diplopia ENT ENT ED: Denies ear pain or sore throat Cardiovascular Cardiovascular: Reports lightheadedness; Denies chest pain Respiratory/Chest Respiratory/Chest: Reports cough; Denies dyspnea Gastrointestinal Gastrointestinal: Denies abdominal pain or nausea Musculoskeletal Musculoskeletal: Denies back pain or neck pain Neurologic Neurologic: Denies headache(s), paresthesias or weakness EXAM Physical Exam Const Vital Signs: 02/15/22 09:48 02/15/22 10:40 02/15/22 11:57 Temperature 98.3 F Temperature Source Oral Pulse Rate 101 H 95 Respiratory Rate 16 15 Respiratory Effort Short of Breath Blood Pressure 125/81 H 118/72 Blood Pressure Mean 95 87 Pulse Ox 93 93 Oxygen Delivery Method Room Air Room Air Positive well nourished and well developed General Appearance ED: well developed and NAD HEENT Reports moist mucous membranes normocephalic and atraumatic Eyes PERRL and EOMs intact bilaterally Neck full ROM and supple Resp normal respiratory effort Resp Narrative: Crackles in the bases no respiratory distress. No tachypnea. Cardio regular rate and regular rhythm Cardio Narrative: Harsh systolic decrescendo murmur GI non-tender and non-distended Auscultation: normoactive bowel sounds Palpation: soft Back/Spine no CVA tenderness General Back: other FROM Extremity normal to inspection General Extremety ED: Yes edema; Negative for pulses abnormal or tenderness General Extremity: edema bilateral lower extremity Details: mild; Negative for pulses abnormal Neuro CN's II-XII intact bilaterally and no sensory deficits noted Neuro Narrative: Disoriented, at baseline. Cooperative and pleasant. Sensorium / Orientation: awake and alert Motor Exam: general weakness Psych mental status grossly normal Skin no rashes or lesions noted and no wounds MDM MDM MDM Narrative Medical decision making narrative: Patient was given gentle IV fluids while we worked her up. She does not appear grossly dehydrated, and I do not think she needs to stay in hospital for more necessarily. Her urine shows some positive indicators for infection but with very few white blood cells, and 2+ bacteria. This was a cath specimen. I sent for culture, she usually does not have positive nitrite and has not been taking Pyridium for any reason, states she is close to her baseline but a little slower than usual. I offered admission for care, but he states he and caretakers at home are more than able to care for her even in this condition. I think putting her on a 3-day course of Bactrim would be reasonable, and follow-up or return if worse. He is comfortable with that plan. I reassured him about the heart rate of 105, the majority of the times I checked on her and her heart rate was in the 90s here, she was a little dehydrated and that is why we gave her some more IV fluids, she had not been eating or drinking very well recently and hopefully the antibiotic will help all of this. Lab Data Attestation: I reviewed the patient's lab results. Labs: Laboratory Results - last 24 hr 02/15/22 02/15/22 02/15/22 09:39 09:39 11:25 WBC 5.8 RBC 4.99 Hgb 14.4 Hct 44.0 MCV 88.2 MCH 28.9 MCHC 32.7 RDW Std Deviation 41.2 RDW Coeff of Jorge 12.7 Plt Count 169 MPV 10.8 Immature Gran % (Auto) 0.300 Neut % (Auto) 85.0 H Lymph % (Auto) 8.9 L [place] % (Auto) 4.8 Eos % (Auto) 0.7 Baso % (Auto) 0.3 Absolute Neuts (auto) 4.9 Absolute Lymphs (auto) 0.52 L Nucleated RBC % 0 Differential Comment Platelet Estimate ADEQUATE RBC Morphology NORM C+C Sodium 137 Potassium 3.9 Chloride 108 H Carbon Dioxide 22.0 Anion Gap 7 BUN 11 Creatinine 0.73 Estim Creat Clear Calc 40.33 Est GFR (MDRD) Af Amer 99 Est GFR (MDRD) Non-Af 82 BUN/Creatinine Ratio 15.1 Glucose 100 Calcium 8.1 L Urine Color Yellow Urine Clarity Clear Urine pH 6.0 Ur Specific Potter 1.010 Urine Protein Negative Urine Glucose (UA) Normal Urine Ketones Negative Urine Occult Blood 25 H Urine Nitrite Positive H Urine Bilirubin Negative Urine Urobilinogen Normal Ur Leukocyte Esterase 25 H Urine RBC 0 SEEN Urine WBC 0-5 SEEN Ur Squamous Epith Cells 0 SEEN Urine Bacteria 2+ Urine Mucus 0 SEEN Discharge Plan Triage Chief Complaint: Chest Other ED Provider: David Gagnon Dx/Rx/DC Orders Clinical Impression: Dehydration, mild, AMS (altered mental status), Acute UTI Instructions: ED Dehydration (Adult), ED CYSTITIS Female Adult Prescriptions: New sulfamethoxazole-trimethoprim [sulfamethoxazole-trimethoprim] 800-160 mg tablet 1 tab PO BID Qty: 6 0RF No Action Vimpat 100 mg tablet 100 mg PO BID Myrbetriq 50 mg tablet extended release 24 hr 100 mg PO QHS memantine 10 mg tablet 10 mg PO BID (DME) PEP device See Rx Instructions .ROUTE .MEDSUPPLY Qty: 1 0RF Rx Instructions: with training bisacodyl 10 mg suppository 10 mg KY DAILY PRN mineral oil [Fleet Mineral Oil] Enema 118 ml KY DAILY PRN Rx Instructions: discard any unused portion magnesium hydroxide [Milk of Magnesia] 400 mg/5 mL suspension 30 ml PO DAILY PRN oxybutynin chloride 10 mg tablet extended release 24hr 10 mg PO DAILY Eliquis 5 mg tablet 5 mg PO BID aspirin [Adult Aspirin Regimen] 81 mg tablet,delayed release (DR/EC) 81 mg PO DAILY tolterodine [Detrol LA] 4 mg capsule,extended release 24hr 4 mg PO DAILY atorvastatin 40 mg tablet 40 mg PO QHS levothyroxine [Synthroid] 25 mcg Tablet 25 mcg PO DAILY cholecalciferol (vitamin D3) [Vitamin D3] 25 mcg (1,000 unit) Capsule 25 mcg PO DAILY Probiotic Blend 2 billion cell-50 mg Capsule 1 cap PO DAILY gabapentin 100 mg capsule 100 mg PO QHS pramipexole 0.5 mg Tablet 0.5 mg PO TID 30 Days Qty: 90 0RF potassium chloride [Klor-Con M20] 20 mEq Tablet,Er Particles/Crystals 20 meq PO DAILYCM 30 Days Qty: 30 0RF mirtazapine 15 mg Tablet 7.5 mg PO QHS 30 Days Qty: 15 0RF Trintellix 20 mg tablet 20 mg PO DAILY albuterol sulfate 2.5 mg /3 mL (0.083 %) solution for nebulization 2.5 mg inhalation Q6H PRN (Reason: Sob &/Or Wheezing) Qty: 180 6RF Primary Care Provider: Arun Ramos Chi Referrals: Arun Ramos Chi, MD [Primary Care Provider] - 3-5 Days if not improving Disposition Disposition: Home, Self Care
[2022-02-15] MEDS: 0.9% Normal Saline 1,000 ML 150 ML IV (10:40)
[2022-02-15 10:46] LABS: Absolute Lymphocyte Count 0.52 X10^3/uL (0.83-4.51); Absolute Neutrophil Count 4.9 X10^3/uL (2.0-7.7); Basophil# 0.02 X10^3/uL; Basophil% 0.3 % (0-1); Eosinophil# 0.04 X10^3/uL; Eosinophils% 0.7 % (0-5); Hemoglobin 14.4 g/dL (12.0-15.0); Lymphocyte # 0.52 X10^3/ul (0.83-4.51); Lymphocyte % 8.9 % (19-41); Mean Corp Hgb Conc 32.7 g/dL (32-36); Mean Corpuscular Hgb 28.9 pg (27.0-32.0); Mean Corpuscular Volume 88.2 fL (81-99); Mean Platelet Vol. 10.8 fl (6.2-12.0); Monocyte# 0.28 X10^3/uL; Monocyte% 4.8 % (0-10); NRBC Flagged by Analyzer 0 % (0-5); Neutrophil # 4.94 X10^3/uL (2.7-7.7); POSITIVE DIFFERENTIAL YES; Platelet Count 169 K/mm3 (150-450); RBC Distribution Width CV 12.7 % (11.6-14.6); RBC Distribution Width SD 41.2 fl (35.1-43.9); Red Blood Count 4.99 M/mm3 (4.2-5.4); White Blood Count 5.8 K/mm3 (4.4-11.0)
[2022-02-15 10:53] LABS: Differential Indicated SCAN CRITERIA MET
[2022-02-15 10:54] LABS: Anion Gap 7 (5-15); BUN 11 mg/dL (7-18); BUN/Creat Ratio 15.1 RATIO (10-20); Calcium,Total 8.1 mg/dL (8.5-10.1); Chloride 108 mmol/L (98-107); Creatinine, Serum 0.73 mg/dL (0.55-1.02); EST Glomerular Filtration Rate 82 mL/min (>60); Est Glom Filt Rate - Afr Amer 99 mL/min (>60); Estimated Creatinine Clearance 40.33 ml/min; Glucose 100 mg/dL (74-106); Potassium 3.9 mmol/L (3.5-5.1); Sodium Level 137 mmol/L (136-145)
[2022-02-15 11:14] LABS: Platelet Estimate ADEQUATE (ADEQ); Red Cell Morphology NORM C+C NORMAL (NORM C&C)
[2022-02-15 11:38] LABS: Mucous, Urine 0 SEEN /hpf (<or=2+); Red Blood Cells-Urine 0 SEEN /hpf (0-5); Squamous Epithelial Cells - UA 0 SEEN /hpf (5-10)
[2022-02-15 11:47] LABS: Color, Urine Yellow (Yellow); Glucose, Dipstick Normal (Normal); Ketone-Dipstick Negative (Negative); Leukocyte Esterase-Dipstick 25 /ul (Negative); Nitrite-Dipstick Positive (Negative); Occult Blood-Urine 25 /ul (Negative); Protein-Dipstick Negative (Negative); Urine Bilirubin Dipstick Negative (Negative); Urine Clarity Clear (Clear); Urine Urobilinogen Normal (Normal)
[2022-02-15 11:57] VITALS: BP 118/72; PULSE 95; RESP 15; O2SAT 93
[2022-02-15 12:53] LABS: Bacteria 2+ /hpf (None Seen); White Blood Cells 0-5 SEEN /hpf (0-5)
[2022-02-15 13:21] VITALS: BP 110/75; PULSE 91; RESP 31; O2SAT 99
[2022-02-15] MEDS: Smz/Tmp Ds Tablet 1 TABLET PO (13:22)
--- NOTE | 2022-02-15 13:43 | ED.RN ---
Patients spouse talked with Dr. Gagnon. Spouse expressed multiple times that he would be able to get her into the house himself. Rn explained it takes 3 people to get her into a wheelchair. Spouse went back into patients room to attempt to help her into chair but was unsuccessful at the time. Spouse agrees patient cannot go home at this time. Dr. Gagnon notified
[2022-02-15 15:00] VITALS: BP 122/81; PULSE 67; RESP 14; O2SAT 99
--- NOTE | 2022-02-15 15:30 | CASEMGMT ---
Social Work Note Hospitalist updated this worker that pt does not need admission, pt needs placed at SNF. YOANDY reviewed chart. Pt has been to TCU before but the last time TCU would not take pt back as pt needed shelter. SW in to speak with pt and pt's Misael. YOANDY introduced self and role at [facility]. Misael confirms plan is SNF. Patient and Misael was provided a list of SNF providers including quality and resource use data and consistent with the patient?s preferred geographic region, medical needs, and insurance network. Misael states to try 1. [facility] [address]. [facility] 3. [facility]. Misael states that he is wanting short term rehab only. YOANDY placed a call to Sharifa at [facility] and Ashley at [facility] and left message regarding referral. YOANDY faxed referrals to both [facility] and [facility]. YOANDY received call from Sharifa at [facility] stating they have no beds available and no anticipated discharges. YOANDY placed a call to [facility] and spoke with Taylor in admissions. Taylor states they received referral and will review. YOANDY informed Taylor that pt is in ED, looking to discharge pt tonight to SNF. Taylor states understanding. Plan: SNF pending acceptance Marleen Kaur TOOLSMITH, MEDIA EXECUTIVE
--- NOTE | 2022-02-15 15:30 | CM.ED ---
Social work Note SW also faxed referral to [facility] as this was the third choice for SNF. SW waiting for call backs from [facility] and [facility]. Marleen Kaur SCREW CUTTER, LABORATORY APPARATUS GLASS GRINDER
--- NOTE | 2022-02-15 16:30 | CM.ED ---
Addendum entered by Marleen Kaur 02/15/22 18:06: YOANDY placed a call to Lou at [facility] to disregard referral. Original Note: Social Work Note SW received message from Taylor at [facility] stating they can accept pt today and pt will be going to room 122. YOANDY received message from Lou at [facility] stating they can also accept pt today. SW in to speak with pt and pt's Misael. YOANDY updated pt and Misael that both [facility] and [facility] is able to accept pt. Pt and Miseal agreeable to [facility]. YOANDY asked pt about her depression. Misael states that pt has a little bit of depression and does take medication for it. Misael states that pt was seeing a counselor, Dr. Johnson, until January [address] Johnson decided pt no longer needed to continue counseling. Lisset states that pt was only receiving individual counseling, no group, no psych admissions, and no case management. YOANDY placed a call to [facility], they will need a COVID test today. YOANDY completed PAS/RR in [facility] and faxed to [facility]. YOANDY updated MD. Gagnon. YOANDY updated [place] who will arrange transportation. Plan: [facility] skilled today under PAS/RR level of care. Marleen Kaur DIRECTOR OF OUTREACH, RADIO SCRIPT WRITER
[2022-02-15 17:00] VITALS: RESP 14; O2SAT 99
--- NOTE | 2022-02-15 17:40 | ED.RN ---
report called to [facility].
--- NOTE | 2022-02-15 18:38 | CM.ED ---
Social Work Note SW faxed discharge packet, COVID test, PAS/RR and PAS/RR results to [facility]. Marleen Kaur LAYOUT MAN, UTILIZATION MANAGEMENT MANAGER
== END 2022-02-15 19:25 | disposition skilled nursing facility (03) ==
PROVIDERS: Emergency Provider Emergency Medicine; PCP Family Medicine Geriatric Medicine; Visit Provider Emergency Medicine
DX: E86.0 Dehydration (principal); N39.0 Urinary tract infection, site not specified; E78.00 Pure hypercholesterolemia, unspecified; R41.82 Altered mental status, unspecified; I10 Essential (primary) hypertension; Z86.73 Personal history of transient ischemic attack (TIA), and cerebral 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; I25.2 Old myocardial infarction
CPT/HCPCS: 80048; 81001; 85025; 87086; 87088; 87186; 87811; 96360; 96361; 99285; J7030; P9612

== ENCOUNTER → 2022-02-25 | Outpatient (CLI) | payer MEDICARE, OTHER, SELFPAY ==
[2022-02-25 17:51] LABS: Homocysteine 11.6 umol/L (3.2-10.7)
[2022-03-07 14:20] LABS: Methylmalonic Acid Bld 214 nmol/L (0-378)
== END | disposition home or self-care (01) ==
LOC: POLAB3 16:35
PROVIDERS: PCP Family Medicine Geriatric Medicine; Visit Provider Family Medicine Geriatric Medicine
DX: D64.9 Anemia, unspecified (principal); D51.9 Vitamin B12 deficiency anemia, unspecified
CPT/HCPCS: 36415; 83090; 83921

== ENCOUNTER → 2022-03-07 | Outpatient (CLI) | payer MEDICARE, OTHER, SELFPAY ==
[2022-03-07 12:31] LABS: Absolute Lymphocyte Count 2.14 X10^3/uL (0.83-4.51); Absolute Neutrophil Count 3.7 X10^3/uL (2.0-7.7); Basophil# 0.06 X10^3/uL; Basophil% 0.9 % (0-1); Eosinophil# 0.17 X10^3/uL; Eosinophils% 2.6 % (0-5); Hematocrit 41.7 % (37-47); Hemoglobin 13.6 g/dL (12.0-15.0); Lymphocyte # 2.14 X10^3/ul (0.83-4.51); Lymphocyte % 32.9 % (19-41); Mean Corp Hgb Conc 32.6 g/dL (32-36); Mean Corpuscular Hgb 29.1 pg (27.0-32.0); Mean Corpuscular Volume 89.1 fL (81-99); Mean Platelet Vol. 11.1 fl (6.2-12.0); Monocyte# 0.39 X10^3/uL; NRBC Flagged by Analyzer 0 % (0-5); Neutrophil # 3.72 X10^3/uL (2.7-7.7); Neutrophil % 57.3 % (47-70); Platelet Count 220 K/mm3 (150-450); RBC Distribution Width CV 13.2 % (11.6-14.6); RBC Distribution Width SD 43.3 fl (35.1-43.9); Red Blood Count 4.68 M/mm3 (4.2-5.4); White Blood Count 6.5 K/mm3 (4.4-11.0)
[2022-03-07 13:16] LABS: Vitamin D,25 Hydroxy 37.8 ng/mL
[2022-03-07 13:17] LABS: AST(SGOT) 15 U/L (15-37); Alanine Aminotransfer ALT/SGPT 17 U/L (13-56); Albumin, Serum 3.6 g/dL (3.2-5.0); Alkaline Phosphatase 74 U/L (45-117); Anion Gap 6 (5-15); BUN 17 mg/dL (7-18); BUN/Creat Ratio 15.7 RATIO (10-20); Calcium,Total 8.7 mg/dL (8.5-10.1); Chloride 108 mmol/L (98-107); Creatinine, Serum 1.08 mg/dL (0.55-1.02); EST Glomerular Filtration Rate 52 mL/min (>60); Est Glom Filt Rate - Afr Amer 63 mL/min (>60); Globulin 3.7 g/dL (2.2-4.2); Glucose 92 mg/dL (74-106); Potassium 4.3 mmol/L (3.5-5.1); Protein, Total 7.3 g/dL (6.4-8.2); Sodium Level 137 mmol/L (136-145); Thyroid Stim Hormone (TSH) 2.09 uIU/mL (0.358-3.74)
== END | disposition home or self-care (01) ==
LOC: POLAB3 10:50
PROVIDERS: PCP Family Medicine Geriatric Medicine; Visit Provider Family Medicine Geriatric Medicine
DX: E55.9 Vitamin D deficiency, unspecified (principal); R53.83 Other fatigue
CPT/HCPCS: 36415; 80053; 82306; 84443; 85025

== ENCOUNTER 2022-03-15 19:40 | Emergency (ER) | payer MEDICARE, OTHER, SELFPAY ==
[2022-03-15 19:42] VITALS: BP 144/83; PULSE 84; RESP 18; TEMP 36.6; O2SAT 93; BMI 26.4
--- NOTE | 2022-03-15 19:47 | CT_ITS ---
STUDY: CT BRAIN WITHOUT CONTRAST REASON FOR EXAM: Female, 81 years old. Fall. Head trauma. Left-sided soft tissue hematoma. History of seizure disorder and TIA. RADIATION DOSAGE (If Supplied By Facility): CTDIvol = ( 44.99 ) mGy, DLP = ( 880.47 ) mGycm TECHNIQUE: Transaxial CT imaging of the brain was performed without administration of intravenous contrast material. Individualized dose optimization techniques were used for this CT. COMPARISON: 02/11/2021. FINDINGS: There is a soft tissue hematoma over the left temporal region. Normal calvarium. There is moderate cerebral atrophy with widening of the extra-axial spaces and ventricular dilatation. There are areas of decreased attenuation within the white matter tracts of the supratentorial brain, consistent with microvascular disease changes. Normal basal ganglia and thalami. Normal brainstem. There is moderate cerebellar atrophy. There is no intracranial hemorrhage. There are no findings of an acute ischemic infarction. Normal visualized paranasal sinuses. CT/Brain/Head without Contrast IMPRESSION: Chronic involutional changes without evidence of acute intracranial or calvarial abnormality. There is no major interval change. Electronically Signed: Nabil Garcia DO at 20:44 EDT ,
--- NOTE | 2022-03-15 19:54 | EDS_ITS ---
HPI History of Present Illness Chief Complaint: Head Injury Informant: patient and spouse/S.O. Onset/Context/Timing Onset: Today Mechanism/Context: Blunt Injury and Fall Current Severity: Mild Maximum Severity: Mild Associated Symptoms Associated Symptoms: Negative for Parasthesias, Weakness, Loss of function, Inability to ambulate, Loss of consciousness or Amnesia Narrative Narrative: Female was waiting to get into the [facility] operative night she tripped and fell hitting her left forehead on the road. No LOC. She is on the blood thinner Eliquis due to history of blood clots. She has a mild headache. Denies any neck pain. No other complaints. No vomiting. Prior similar symptoms: No Recent Illness/Hospitalization: No PFSH PFSH Medical History aquired autoimmune encephalopathy Arthritis Asthma Back pain Bladder disease Cancer Cardiology follow-up encounter Dementia Dementia Depression Difficulty swallowing DVT (deep venous thrombosis) Falls Falls frequently Gastric reflux h/o back surgery Health care maintenance Heart disease High cholesterol History of heart attack History of stress test Hx of echocardiogram Hypertension Low iron Non-smoker Partial complex seizures Restless legs Seizures Shortness of breath on exertion TIA (transient ischemic attack) Walker as ambulation aid Home Medications lacosamide 100 mg tablet (Vimpat) 100 mg PO BID Check with primary doctor 06/28/20 [History Last Taken 10/05/21] mirabegron 50 mg tablet,extended release 24 hr (Myrbetriq) 100 mg PO QHS Check with primary doctor 11/06/20 [History Last Taken 10/04/21] atorvastatin 40 mg tablet 40 mg PO QHS Cholesterol 03/08/21 [History Last Taken 10/04/21] levothyroxine 25 mcg tablet (Synthroid) 25 mcg PO DAILY Thyroid 03/08/21 [History Last Taken 10/05/21] PEP device #1 ea 05/09/21 [Rx Last Taken Unknown] memantine 10 mg tablet 10 mg PO BID Alzheimer's 05/09/21 [History Last Taken 10/05/21] L.acidophil-L.casei-B.bifid-B.longum-FOS 2 billion cell-50 mg capsule (Probiotic Blend) 1 cap PO DAILY Supplement 09/02/21 [History Last Taken 10/05/21] cholecalciferol (vitamin D3) 25 mcg (1,000 unit) capsule (Vitamin D3) 25 mcg PO DAILY Supplement 09/02/21 [History Last Taken 10/05/21] vortioxetine 20 mg tablet (Trintellix) 20 mg PO DAILY DEPRESSION 10/05/21 [History Last Taken 10/05/21] apixaban 5 mg tablet (Eliquis) 5 mg PO BID 01/10/22 [History Last Taken Unknown] aspirin 81 mg tablet,delayed release (Adult Aspirin Regimen) 81 mg PO DAILY 01/10/22 [History Last Taken Unknown] tolterodine 4 mg capsule,extended release 24 hr (Detrol LA) 4 mg PO DAILY 01/10/22 [History Last Taken Unknown] albuterol sulfate 2.5 mg/3 mL (0.083 %) solution for nebulization 2.5 mg (3 mL) inhalation Q6H PRN Sob &/Or Wheezing #180 mL 02/11/22 [Rx Last Taken Unknown] acetaminophen 500 mg-pamabrom 25 mg-pyrilamine 15 mg tablet tab 02/15/22 [History Last Taken Unknown] bnuqnjfkgpnhm-wnzwaras-skcatrhekc 500 mg-60 mg-15 mg tablet (Midol Complete) tab 02/15/22 [History Last Taken Unknown] famotidine 20 mg tablet (Pepcid) 20 mg PO BID 02/15/22 [History Last Taken Unknown] fluconazole 10 mg/mL oral suspension mg 02/15/22 [History Last Taken Unknown] Allergy/AdvReac Type Severity Reaction Status Date / Time doxycycline Allergy Mild Vomiting Verified 03/15/22 19:44 oxycodone [From Percocet] Allergy Mild Confusion Verified 03/15/22 19:44 acetaminophen Allergy Other Verified 03/15/22 19:44 [From Darvocet-N] lamotrigine [From Lamictal] Allergy Lip Verified 03/15/22 19:44 Swelling latex Allergy Rash Verified 03/15/22 19:44 moxifloxacin HCl Allergy Other Verified 03/15/22 19:44 [From Avelox] propoxyphene napsylate Allergy Other Verified 03/15/22 19:44 [From Darvocet-N] zolpidem tartrate AdvReac Other Verified 03/15/22 19:44 [From Ambien] Family History Mother CVA (cerebral vascular accident) Father Myocardial infarction Surgical History H/O heart artery stent H/O kyphoplasty History of appendectomy History of cardiac catheterization History of esophagogastroduodenoscopy (EGD) History of laryngoscopy History of lumpectomy of left breast Hx of cataract extraction Hx of colonoscopy Hx of ventral hernia repair Social History household members: spouse housing: house Smoking Status: Never smoker alcohol intake: current alcohol intake frequency: a few times a week do you feel safe at home: Yes ROS ROS ED ROS Narrative No recent illness. Review of Systems ROS Unobtainable: Denies due to encephalopathy Constitutional Constitutional ED: Denies chills Eyes Eyes: Denies blurry vision ENT ENT ED: Denies ear pain Cardiovascular Cardiovascular: Denies chest pain Respiratory/Chest Respiratory/Chest: Denies cough Gastrointestinal Gastrointestinal: Denies abdominal pain Genitourinary Genitourinary ED: Denies dysuria Musculoskeletal Musculoskeletal: Denies arthralgias Integumentary Denies abscess Neurologic Neurologic: Reports headache(s) Psychiatric Psychiatric: Denies anxiety Endocrine Endocrinology: Denies cold intolerance Hematologic/Lymphatic Hematologic/Lymphatic: Denies easy bleeding Allergic/Immunologic Allergic/Immunologic ED: Denies mouth swelling EXAM Physical Exam Narrative Exam Narrative: 81-year-old female no acute distress. Vital signs stable afebrile. H EENT exam pupils round reactive light pupils are about 2 mm bilaterally. She has a contusion abrasion and hematoma on her left forehead area. Scalp nontender nonswollen. C-spine nontender. Trachea midline. Back and spine nontender. Lungs are clear. Heart regular rhythm no murmur. Rate about 80. Chest were nontender. Abdomen soft nontender. Pelvic girdle intact. Moving all 4 extremities. Shoulders, elbows and wrist are nontender. Normal bobbin marker strength. Hips, knees and ankles nontender. No deformity or shortening. Neurologically she is awake and alert. Answers questions follows commands. She has a history of dementia she does not know the month that is her baseline. Const Vital Signs: 03/15/22 19:42 03/15/22 19:50 Temperature 98 F Temperature Source Oral Pulse Rate 84 Respiratory Rate 18 Respiratory Effort Normal Respiratory Pattern Normal Blood Pressure 144/83 H Blood Pressure Mean 103 Pulse Ox 93 Oxygen Delivery Method Room Air Positive well nourished and well developed; Negative for obese, cachectic, con tractures or unkempt General Appearance ED: well developed; Negative for unkempt, cachectic or contractures Nutritional Appearance: Negative for cachectic or obese HEENT HEENT Narrative: Left forehead abrasion and hematomas. trauma and tenderness; Negative for atraumatic Eyes PERRL and EOMs intact bilaterally Neck full ROM General: Negative for tenderness Chest Wall inspection of chest normal and palpation of chest normal Breast/Axilla Inspection: Negative for other Resp normal respiratory effort and clear to auscultation bilaterally Auscultation: Negative for rales, rhonchi or wheezes Cardio regular rhythm, S1 normal heart sound, S2 normal heart sound and no murmurs Rate: regular rate Rhythm: Negative for abnormal rhythm GI normal to inspection, nondistended, normoactive bowel sounds, non-tender, non- distended and no masses Inspection: Negative for abdominal distention Auscultation: normoactive bowel sounds Palpation: soft Back/Spine normal to inspection and no thoracic nor lumbar tenderness General Back: Negative for CVA tenderness Thoracic Spine / Upper Back: Negative for thoracic spinal tenderness Lumbar Spine / Lower Back: Negative for straight leg raise negative bilaterally Extremity normal to inspection and full ROM General Extremety ED: Negative for deformity or edema General Extremity: Negative for deformity or edema Neuro moves all extremities and no focal motor deficits Toy Coma Scale: document GCS findings Spontaneous Obeys Commands Oriented 15 Sensorium / Orientation: alert, oriented to person and oriented to place; Negative for oriented to time Motor Exam: strength 5/5 throughout Psych mental status grossly normal and thought process normal Appearance: Negative for unkempt Mood & Affect: Negative for depressed Skin no rashes or lesions noted and No no wounds Skin Narrative: Abrasion and hematoma left forehead. Wounds: wounds noted MDM MDM MDM Narrative Medical decision making narrative: 81-year-old female [place] the theater and tripped and fell outside. And has a head injury. She is on Eliquis and a CAT scan to be obtained.. Tylenol for pain. Repeat exam patient is doing well at 9:09 PM. Patient was complaining of some mild hip discomfort. An x-ray was taken that was negative. Discharged home with head injury instructions. Follow-up as needed. Tylenol for pain. Radiography Diagnostic Testing: Clinical Impression(s) from Imaging Studies Brain CT 03/15/22 19:47 IMPRESSION: Chronic involutional changes without evidence of acute intracranial or calvarial abnormality. There is no major interval change. Electronically Signed: Nabil Garcia DO at 20:44 EDT Reading Location ID and State: [address] [place] [address] Tel [phone], Service support , Left hip x-ray and pelvis, 3 views interpreted myself shows no acute abnormality. No fracture or dislocation. Discharge Plan Triage Chief Complaint: Head Injury ED Provider: Germain Porter Dx/Rx/DC Orders Clinical Impression: Fall, Closed head injury, Chronic anticoagulation, Contusion of hip Instructions: ED Head Injury (Adult) Prescriptions: No Action Vimpat 100 mg tablet 100 mg PO BID Myrbetriq 50 mg tablet extended release 24 hr 100 mg PO QHS memantine 10 mg tablet 10 mg PO BID (DME) PEP device See Rx Instructions .ROUTE .MEDSUPPLY Qty: 1 0RF Rx Instructions: with training Eliquis 5 mg tablet 5 mg PO BID aspirin [Adult Aspirin Regimen] 81 mg tablet,delayed release (DR/EC) 81 mg PO DAILY tolterodine [Detrol LA] 4 mg capsule,extended release 24hr 4 mg PO DAILY atorvastatin 40 mg tablet 40 mg PO QHS levothyroxine [Synthroid] 25 mcg Tablet 25 mcg PO DAILY cholecalciferol (vitamin D3) [Vitamin D3] 25 mcg (1,000 unit) Capsule 25 mcg PO DAILY Probiotic Blend 2 billion cell-50 mg Capsule 1 cap PO DAILY Trintellix 20 mg tablet 20 mg PO DAILY Midol Complete 500-60-15 mg Tablet Pamprin Multi-Symptom 500-25-15 mg Tablet fluconazole 10 mg/mL Suspension For Reconstitution famotidine [Pepcid] 20 mg Tablet 20 mg PO BID albuterol sulfate 2.5 mg /3 mL (0.083 %) solution for nebulization 2.5 mg inhalation Q6H PRN (Reason: Sob &/Or Wheezing) Qty: 180 6RF Primary Care Provider: Arun Ramos Chi Referrals: Arun Ramos Chi, MD [Primary Care Provider] - As Needed Activity Restrictions/Additional Instructions: Ice to your forehead to decrease pain and swelling. Tylenol for pain. Return if intractable vomiting, not acting right or severe headache. Hold your next dose of Eliquis and then may restart normally. Disposition Disposition: Home, Self Care
[2022-03-15] MEDS: Acetaminophen 325 MG Tablet 650 MG PO (20:11)
--- NOTE | 2022-03-15 21:21 | RAD_ITS ---
STUDY: X-RAY - PELVIS AND LEFT HIP REASON FOR EXAM: Female, 81 years old. Fall onto left hip today. TECHNIQUE: 3 views of the pelvis and hip. COMPARISON: None. FINDINGS: There is a non-specific bowel gas pattern. Normal visualized soft tissue structures. There are multiple calcified phleboliths. Normal bilateral iliac wings, sacroiliac joints and visualized sacrum. Normal bilateral superior and inferior pubic rami. Normal pubic symphysis. Normal bilateral ischial tuberosities. Normal right hip. Normal visualized left femoral head. Normal left acetabulum. Narrowing of the left hip joint RAD/HIP, UNI W/ Pelvis 2-3 Views IMPRESSION: Mild arthrosis left hip. There is no acute fracture or dislocation. Electronically Signed: Nabil Garcia DO at 21:55 EDT ,
== END 2022-03-15 22:02 | disposition home or self-care (01) ==
PROVIDERS: Emergency Provider Emergency Medicine; PCP Family Medicine Geriatric Medicine; Visit Provider Emergency Medicine
DX: S09.90XA Unspecified injury of head, initial encounter (principal); S70.02XA Contusion of left hip, initial encounter; Z86.718 Personal history of other venous thrombosis and embolism; Z79.01 Long term (current) use of anticoagulants; Z86.73 Personal history of transient ischemic attack (TIA), and cerebral 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; W19.XXXA Unspecified fall, initial encounter
CPT/HCPCS: 70450; 73502; 99284

== ENCOUNTER → 2022-07-12 | Outpatient (CLI) | payer MEDICARE, OTHER, SELFPAY ==
--- NOTE | 2022-07-12 18:01 | CT_ITS ---
EXAM: CT ABDOMEN AND PELVIS WITH INTRAVENOUS CONTRAST CLINICAL INDICATION: Lower ab wall mass, hernia suspected TECHNIQUE: Helically acquired images were obtained of the abdomen and pelvis with intravenous contrast. This CT exam was performed using one or more of the following dose reduction techniques: automated exposure control, adjustment of the mA and/or kV according to patient size, and/or use of iterative reconstruction technique. This report was created using [employer] report generation technology. CONTRAST: IV 75mL [id number]-370 COMPARISON: 09/02/2021 FINDINGS: LOWER THORAX: There is a large hiatal hernia present. There is scarring in the left upper lobe. No cardiomegaly. No significant pericardial effusion. ABDOMEN: LIVER: Unremarkable. Homogeneous. No focal mass. GALLBLADDER AND BILE DUCTS: Common bile duct is dilated measuring 1.4 cm. There is no obvious stone identified. Indicated further evaluation with MRCP or ERCP may be beneficial. No gallbladder distention or wall edema. PANCREAS: Unremarkable. No focal cystic or solid mass. SPLEEN: Unremarkable. Normal size without focal cystic or solid mass. ADRENALS: Unremarkable. No nodules. KIDNEYS AND URETERS: Unremarkable. Normal renal size and position. No hydronephrosis. STOMACH AND BOWEL: There is a right inguinal hernia present with a loop of small bowel hernia sac. There is no evidence of obstruction. This is unchanged from reference exam. No focal inflammatory change. PELVIS: APPENDIX: No evidence of acute appendicitis. BLADDER: Unremarkable. REPRODUCTIVE: Unremarkable as visualized. No mass. ABDOMEN and PELVIS: INTRAPERITONEAL SPACE: Unremarkable. No ascites or other fluid collection. No free air. BONES/JOINTS: There is orthopedic cement in the L2-L4 vertebral bodies. No suspicious lytic or blastic abnormality. SOFT TISSUES: See above. VASCULATURE: Unremarkable. Abdominal aorta is non-dilated. LYMPH NODES: Unremarkable. No enlarged lymph nodes. CT/Abdomen/Pelvis WITH Contrast IMPRESSION: 1. Stable right inguinal hernia. There is small bowel present but no evidence of obstruction. 2. Large hiatal hernia. 3. Dilatation of the common bile duct. No obvious stones are seen. If indicated further evaluation with ERCP or MRCP may be beneficial. Electronically Signed: Franco Sarah MD at 19:17 EST ,
[2022-07-12 18:31] LABS: CREATININE FINGERSTICK < 0.9 mg/dL (0.55-1.02); EGFR FINGERSTICK > 60.0000 mL/min (>60)
== END | disposition home or self-care (01) ==
LOC: CT 17:57
PROVIDERS: PCP Internal Medicine; Referring Provider Internal Medicine; Visit Provider Internal Medicine
DX: R10.9 Unspecified abdominal pain (principal)
CPT/HCPCS: 74177; Q9967; A4216

== ENCOUNTER 2022-07-13 00:20 | Emergency (ER) | payer MEDICARE, OTHER, SELFPAY ==
[2022-07-13 00:21] VITALS: BP 149/79; PULSE 80; RESP 16; TEMP 36.6; O2SAT 95; BMI 25.7
--- NOTE | 2022-07-13 01:04 | CT_ITS ---
EXAM: CT CERVICAL SPINE WITHOUT INTRAVENOUS CONTRAST CLINICAL INDICATION: injury TECHNIQUE: Helically acquired images were obtained of the cervical spine without intravenous contrast. 2D reformatted images were reviewed. This CT exam was performed using one or more of the following dose reduction techniques: automated exposure control, adjustment of the mA and/or kV according to patient size, and/or use of iterative reconstruction technique. This report was created using [employer] report generation technology. RADIATION DOSE: CTDIvol = 16.43 mGy, DLP = 1178.03 mGy-cm. COMPARISON: None. FINDINGS: VERTEBRAE: Chronic appearing compression deformity at T4, moderate. Mildly accentuated lordotic curvature of the cervical spine. Slight anterolisthesis of C4 with respect to C5 of approximately 1.6 mm. No discrete lytic or blastic abnormality. Normal craniocervical junction and cervicothoracic junction. DISCS/SPINAL CANAL/NEURAL FORAMINA: Moderate disc space narrowing and vacuum disks at C5-6 and C6-7. Facet joint hypertrophic changes on the right and C2-C5. No evidence of significant spinal stenosis. SOFT TISSUES: Unremarkable. No prevertebral soft tissue swelling. VASCULATURE: Small calcification right carotid. LYMPH NODES: Unremarkable. No cervical adenopathy. LUNG APICES: Unremarkable as visualized. Clear. MEDIASTINUM: Partially included is a markedly distended distal esophagus or large hiatal hernia. CT/Spine Cervical without Contras IMPRESSION: 1. Degenerative changes. No convincing acute abnormality. Chronic compression deformity of T4. 2. Presumed large hiatal hernia and mild distention of the lower cervical-upper thoracic esophagus, the presumed hiatal hernia is not fully included. Electronically Signed: Reena Kwan MD at 3:00 EST ,
--- NOTE | 2022-07-13 01:04 | CT_ITS ---
EXAM: CT HEAD WITHOUT INTRAVENOUS CONTRAST CLINICAL INDICATION: head injury TECHNIQUE: Multiple axial images were obtained of the head without intravenous contrast. This CT exam was performed using one or more of the following dose reduction techniques: automated exposure control, adjustment of the mA and/or kV according to patient size, and/or use of iterative reconstruction technique. This report was created using [employer] report generation technology. RADIATION DOSE: CTDIvol = 44.99 mGy, DLP = 1178.03 mGy-cm total, apparently for head and cervical spine. COMPARISON: None. FINDINGS: BRAIN AND EXTRA-AXIAL SPACES: Moderate cerebral volume loss. Mild ventriculomegaly appears chronic. Mild deep periventricular chronic white matter changes. No intra- or extra-axial hemorrhage. No evidence of acute infarct. No intracranial mass or mass effect. There is preservation of the bianchi/white matter interface. Posterior fossa structures are unremarkable. Basal cisterns are patent. BONES/JOINTS: Unremarkable. No discrete lytic or blastic abnormalities. SOFT TISSUES: Dressing or hair style posterior and lateral to the calvarium. Suspicion of small scalp contusion or laceration in the right posterior scalp. Surgical clips anterior to the left ear. VASCULATURE: Mild-moderate cavernous carotid calcifications. Slight distal vertebral artery calcifications. SINUSES: Mucosal thickening and slight fluid levels in the maxillary sinuses and mucosal thickening in sphenoid sinus. MASTOID AIR CELLS: Unremarkable. Clear. ORBITS: Visualized globes, extraocular muscles, optic nerves and retrobulbar fat appear unremarkable. CT/Brain/Head without Contrast IMPRESSION: 1. No acute intracranial abnormality. 2. Chronic changes. 3. Sinusitis, with at least slight fluid of acute sinusitis superimposed on moderate chronic disease. Electronically Signed: Reena Kwan MD at 2:21 EST ,
[2022-07-13] MEDS: Lidocaine 2% /Epi 1:100 (20ml) 20 ML VIAL INFILT (01:17)
--- NOTE | 2022-07-13 01:31 | RAD_ITS ---
EXAM: XR LEFT ELBOW COMPLETE, 3 OR MORE VIEWS CLINICAL INDICATION: pain TECHNIQUE: Frontal, lateral and oblique views of the left elbow. This report was created using [employer] report generation technology. COMPARISON: None. FINDINGS: BONES/JOINTS: Mild demineralization. Otherwise unremarkable skeletal structures. There is no displacement of the anterior or posterior fat pads. No acute fracture. No subluxation. Normal alignment. Preservation of the joint space. No destructive or sclerotic lesions. SOFT TISSUES: Unremarkable. No soft tissue swelling or gas. No radiopaque foreign body. RAD/Elbow min 3 Views IMPRESSION: No acute findings in the left elbow. Mild demineralization. Electronically Signed: Reena Kwan MD at 2:41 EST ,
--- NOTE | 2022-07-13 01:36 | RAD_ITS ---
EXAM: XR PELVIS, 1 OR 2 VIEWS CLINICAL INDICATION: pain TECHNIQUE: Frontal view of the pelvis. This report was created using [employer] report generation technology. COMPARISON: Recent CT abdomen and pelvis July 12, 2022, oral contrast reached the right colon and there was prominent contrast-filled hiatal hernia on the prior exam. Prominently dilated intrahepatic and extrahepatic bile ducts, CBD 1.5 cm proximally and approximately 1.3 cm distally to the level of questionable mild soft tissue nodule or thickening at the level of the ampulla, and dilated pancreatic duct of 8 mm. ERCP or MRCP was suggested. FINDINGS: BONES/JOINTS: Unremarkable. No displaced fracture. No destructive or sclerotic lesions. Note that overlapping bowel shadows may however obscure fine detail. Sacroiliac joints are unremarkable. No widening of the pubic symphysis. The articular structures are unremarkable. SOFT TISSUES: Unremarkable. No soft tissue swelling or gas. GASTROINTESTINAL TRACT: There is moderate contrast surrounding some mild stool in the right colon and slight contrast mixed with moderate stool in descending colon. Moderate contrast in the urinary bladder consistent with CT roughly 8 hours earlier. RAD/Pelvis 1 or 2 Views IMPRESSION: 1. Moderate stool and residual enteric contrast in the colon. 2. Moderate residual contrast in the bladder. No suspicious bone lesions. Electronically Signed: Reena Kwan MD at 2:39 EST ,
--- NOTE | 2022-07-13 03:11 | EDS_ITS ---
HPI History of Present Illness Chief Complaint: Head Injury Narrative Narrative: Patient is a 81-year-old female with past medical history of pulmonary emboli and currently is on Eliquis secondary to this. She also has a history of muscle weakness and unsteady gait which is led to recurrent falls. Patient states around midnight she was in her living room when she tripped on the rug and fell backwards striking her head on the coffee table. She denies any loss of consciousness. states he did not see the fall but he heard the thud. He states he was at her side quickly and she was awake and alert. However they both noticed blood coming from her head and with concern for underlying brain injury/skull fracture from the trauma and her blood thinner use she was brought to the hospital for evaluation. [facility] Medical History (Updated 07/13/22 @ 03:[address] Isma Bustamante, ) aquired autoimmune encephalopathy Arthritis Asthma Atherosclerotic heart disease of [place] coronary artery without angina pectoris Back pain Bladder disease Cancer Cardiology follow-up encounter Dementia Dementia Depression Difficulty swallowing DVT (deep venous thrombosis) Essential hypertension Falls Falls frequently Gastric reflux h/o back surgery Health care maintenance Heart disease High cholesterol History of heart attack History of stress test Hx of echocardiogram Hypertension Hypertension Influenza A Low iron Non-smoker Partial complex seizures Presence of stent in coronary artery (~1989) Restless legs Seizures Shortness of breath on exertion TIA (transient ischemic attack) Walker as ambulation aid Home Medications lacosamide 100 mg tablet (Vimpat) 100 mg PO BID Check with primary doctor 06/28/20 [History Last Taken 10/05/21] mirabegron 50 mg tablet,extended release 24 hr (Myrbetriq) 100 mg PO QHS Check with primary doctor 11/06/20 [History Last Taken 10/04/21] levothyroxine 25 mcg tablet (Synthroid) 25 mcg PO DAILY Thyroid 03/08/21 [H istory Last Taken 10/05/21] PEP device #1 ea 05/09/21 [Rx Last Taken Unknown] memantine 10 mg tablet 10 mg PO BID Alzheimer's 05/09/21 [History Last Taken 10/05/21] L.acidophil-L.casei-B.bifid-B.longum-FOS 2 billion cell-50 mg capsule (Probiotic Blend) 1 cap PO DAILY Supplement 09/02/21 [History Last Taken 10/05/21] aspirin 81 mg tablet,delayed release (Adult Aspirin Regimen) 81 mg PO DAILY 01/10/22 [History Last Taken Unknown] tolterodine 4 mg capsule,extended release 24 hr (Detrol LA) 4 mg PO DAILY 01/10/22 [History Last Taken Unknown] albuterol sulfate 2.5 mg/3 mL (0.083 %) solution for nebulization 2.5 mg (3 mL) inhalation Q6H PRN Sob &/Or Wheezing #180 mL 02/11/22 [Rx Last Taken Unknown] BD Sry/needle eclips IM 04/25/22 [History Last Taken Unknown] cyanocobalamin (vitamin B-12) 1,000 mcg/mL injection solution (Dodex) 100 mcg IM QMONTH 04/25/22 [History Last Taken Unknown] pramipexole 0.5 mg tablet (Mirapex) 0.5 mg PO BID 04/25/22 [History Last Taken Unknown] vortioxetine 20 mg tablet (Trintellix) 20 mg PO DAILY DEPRESSION #90 tabs 05/01/22 [Rx Last Taken Unknown] atorvastatin 40 mg tablet 40 mg PO DAILY #90 tabs 06/07/22 [Rx Last Taken Unknown] cranberry 500 mg capsule 500 mg PO DAILY 06/07/22 [History Last Taken Unknown] d-mannose 500 mg capsule 500 mg PO DAILY 06/07/22 [History Last Taken Unknown] denosumab 60 mg/mL subcutaneous syringe (Prolia) 60 mg subcut [id number] 06/07/22 [History Last Taken Unknown] famotidine 10 mg tablet 10 mg PO BID 06/07/22 [History Last Taken Unknown] multivitamin 1 tab PO DAILY 06/07/22 [History Last Taken Unknown] apixaban 5 mg tablet (Eliquis) 5 mg PO BID #180 tabs 06/24/22 [Rx Last Taken Unknown] tramadol 50 mg tablet 50 mg PO TID PRN pain 4 days #12 tabs 07/13/22 [Rx Last Taken Unknown] Allergy/AdvReac Type Severity Reaction Status Date / Time doxycycline Allergy Mild Vomiting Verified 07/13/22 00:25 oxycodone [From Percocet] Allergy Mild Confusion Verified 07/13/22 00:25 acetaminophen Allergy Other Verified 07/13/22 00:25 [From Darvocet-N] lamotrigine [From Lamictal] Allergy Lip Verified 07/13/22 00:25 Swelling latex Allergy Rash Verified 07/13/22 00:25 moxifloxacin HCl Allergy Other Verified 07/13/22 00:25 [From Avelox] propoxyphene napsylate Allergy Other Verified 07/13/22 00:25 [From Darvocet-N] zolpidem tartrate AdvReac Other Verified 07/13/22 00:25 [From Ambien] Family History Mother CVA (cerebral vascular accident) Arthritis Father Myocardial infarction, Onset Age: 40 Alcoholism Hypertension Sister Anemia Grandmother Bowel disease Osteoporosis Ovarian cancer Surgical History (Updated 07/08/22 @ 12:18 by Forrest Ortiz) H/O kyphoplasty History of appendectomy History of cardiac catheterization History of carpal tunnel release History of esophagogastroduodenoscopy (EGD) History of hammer toe correction History of hernia surgery History of laryngoscopy History of lumbar laminectomy History of lumpectomy of left breast History of tonsillectomy and adenoidectomy Hx of cataract extraction Hx of colonoscopy Hx of ventral hernia repair Presence of coronary angioplasty implant and graft (~1989) Social History household members: spouse housing: house Smoking Status: Never smoker alcohol intake: current alcohol intake frequency: a few times a week Alcohol type: wine substance use type: does not use caffeine: Yes Type: coffee Number of servings: 1 what type of physical activity do you participate in: other details: PT 3x weekly frequency: 3-4 times per week do you feel safe at home: Yes ROS ROS ED Constitutional Constitutional ED: Denies chills or fever(s) Eyes Eyes: Denies change in vision ENT ENT ED: Denies sore throat Cardiovascular Cardiovascular: Denies chest pain Respiratory/Chest Respiratory/Chest: Denies cough or dyspnea Gastrointestinal Gastrointestinal: Denies abdominal pain, diarrhea, nausea or vomiting Genitourinary Genitourinary ED: Denies dysuria Musculoskeletal Musculoskeletal: Reports neck pain; Denies myalgias Integumentary Reports other Details: Positive scalp laceration Neurologic Neurologic: Reports weakness; Denies headache(s) Hematologic/Lymphatic Hematologic/Lymphatic: Reports easy bleeding and easy bruising EXAM Physical Exam Const Vital Signs: 07/13/22 00:21 07/13/22 00:27 07/13/22 03:28 Temperature 97.8 F Temperature Source Temporal Pulse Rate 80 78 Respiratory Rate 16 16 Respiratory Effort Normal Blood Pressure 149/79 H 135/68 H Blood Pressure Mean 102 Pulse Ox 95 97 Oxygen Delivery Method Room Air Positive well nourished and well developed General Appearance ED: well developed HEENT HEENT Narrative: Patient has a large amount of matted blood along the posterior section of her scalp. There is a 2 cm laceration noted along the occiput with persistent ooze of blood. No signs of depressed or basilar skull fracture Eyes PERRL and EOMs intact bilaterally Neck supple Neck Narrative: No bony deformity or step-off of the cervical spine but there is mild midline pain with palpation along the lower cervical region C6-C7 Chest Wall palpation of chest normal Chest Narrative: No bony deformity or crepitance Resp normal respiratory effort and clear to auscultation bilaterally Cardio regular rate and regular rhythm GI normal to inspection, nondistended, normoactive bowel sounds, non-tender, non- distended and no masses Auscultation: normoactive bowel sounds Palpation: soft Back/Spine Back/Spine Narrative: Patient has dextro scoliosis but otherwise no bony deformity or step-off or midline pain on palpation of the thoracic or lumbar spine Extremity Extremity Narrative: Pelvis is stable there is no shortening or external rotation of either lower extremity. Patient does have pain with palpation in the left inguinal region concerning for pubic rami fracture. Patient also has pain on palpation of the left elbow but there is no bony deformity or joint effusion present. Patient can lift both upper extremities without difficulty. Patient has difficulty lifting the lower extremity secondary to chronic weakness. Neuro oriented x3 and CN's II-XII intact bilaterally Sensorium / Orientation: alert Psych mental status grossly normal Skin no rashes or lesions noted Skin Narrative: Patient has a 2 cm linear subcutaneous layer deep laceration to the occipital portion of her scalp with persistent ooze of blood. No foreign body noted. No arterial bleeding noted. MDM MDM MDM Narrative Medical decision making narrative: Patient presented to the ER with report of mechanical fall. Therefore I felt no need for cardiac or syncope work-up. She had pain to her pubic rami region as well as left elbow so x-rays were obtained. These revealed no acute fractures or dislocations. With the head trauma and blood thinner use CTs were obtained of the head and neck. These showed chronic findings without acute skull fracture or brain bleed. Therefore the scalp laceration was closed as documented below and patient is otherwise safe for discharge Patient had the scalp wound cleaned with hydrogen peroxide. It was anesthetized with 6 mL of 2% lidocaine with epinephrine in local fashion. The wound was copiously irrigated with normal saline. Then five 4-0 Ethilon sutures were placed in simple interrupted fashion. This brought the wound together good approximation. Following this the remainder of the blood was removed from the scalp and there was no other lacerations. Patient also had no further bleeding. Patient tolerated procedure well without complication. Radiography Diagnostic Testing: Clinical Impression(s) from Imaging Studies Brain CT 07/13/22 01:04 IMPRESSION: 1. No acute intracranial abnormality. 2. Chronic changes. 3. Sinusitis, with at least slight fluid of acute sinusitis superimposed on moderate chronic disease. Electronically Signed: Reena Kwan MD at 2:21 EST , Cervical Spine CT 07/13/22 01:04 IMPRESSION: 1. Degenerative changes. No convincing acute abnormality. Chronic compression deformity of T4. 2. Presumed large hiatal hernia and mild distention of the lower cervical-upper thoracic esophagus, the presumed hiatal hernia is not fully included. Electronically Signed: Reena Kwan MD at 3:00 EST , Elbow X-Ray 07/13/22 01:31 IMPRESSION: No acute findings in the left elbow. Mild demineralization. Electronically Signed: Reena Kwan MD at 2:41 EST , Pelvis X-Ray 07/13/22 01:36 IMPRESSION: 1. Moderate stool and residual enteric contrast in the colon. 2. Moderate residual contrast in the bladder. No suspicious bone lesions. Electronically Signed: Reena Kwan MD at 2:39 EST , Pelvis x-ray as interpreted by the emergency medicine physician reveals no acute fracture or dislocation Left elbow x-ray as interpreted by the emergency medicine physician reveals no acute fracture dislocation or joint effusion. Discharge Plan Triage Chief Complaint: Head Injury ED Provider: Isma Bustamante Dx/Rx/DC Orders Clinical Impression: Laceration of occipital scalp, Head injury, Current use of oysterman anticoagulation Instructions: ED Head Injury (Adult), ED Laceration Scalp Stitches or [place] Prescriptions: New tramadol 50 mg tablet 50 mg PO TID PRN (Reason: pain) 4 Days Qty: 12 0RF No Action Vimpat 100 mg tablet 100 mg PO BID Myrbetriq 50 mg tablet extended release 24 hr 100 mg PO QHS memantine 10 mg tablet 10 mg PO BID (DME) PEP device See Rx Instructions .ROUTE .MEDSUPPLY Qty: 1 0RF Rx Instructions: with training aspirin [Adult Aspirin Regimen] 81 mg tablet,delayed release (DR/EC) 81 mg PO DAILY tolterodine [Detrol LA] 4 mg capsule,extended release 24hr 4 mg PO DAILY multivitamin Tablet 1 tab PO DAILY famotidine 10 mg tablet 10 mg PO BID cranberry 500 mg capsule 500 mg PO DAILY Rx Instructions: administer with meals Prolia 60 mg/mL syringe 60 mg subcut [id number] d-mannose 500 mg capsule 500 mg PO DAILY atorvastatin 40 mg tablet 40 mg PO DAILY Qty: 90 3RF pramipexole [Mirapex] 0.5 mg tablet 0.5 mg PO BID cyanocobalamin (vitamin B-12) [Dodex] 1,000 mcg/mL solution 100 mcg IM QMONTH BD Sry/needle eclips IM Rx Instructions: 3ml #4888 levothyroxine [Synthroid] 25 mcg Tablet 25 mcg PO DAILY Probiotic Blend 2 billion cell-50 mg Capsule 1 cap PO DAILY albuterol sulfate 2.5 mg /3 mL (0.083 %) solution for nebulization 2.5 mg inhalation Q6H PRN (Reason: Sob &/Or Wheezing) Qty: 180 6RF Trintellix 20 mg tablet 20 mg PO DAILY Qty: 90 3RF Eliquis 5 mg tablet 5 mg PO BID Qty: 180 3RF Primary Care Provider: Yokasta Perry Referrals: Yokasta Perry MD [Primary Care Provider] - Activity Restrictions/Additional Instructions: 5 sutures were placed in your scalp to stop the bleeding from the laceration. The sutures will need to be removed in 10 to 14 days. Please see your family doctor or return to the ER for suture removal. Please return for repeat evaluation if he have any further concerns Disposition Disposition: Home, Self Care Discharge Date/Time: 07/13/22 03:29
[2022-07-13] MEDS: traMADol 50 MG Tablet PO (03:17)
[2022-07-13 03:28] VITALS: BP 135/68; PULSE 78; RESP 16; O2SAT 97
== END 2022-07-13 03:29 | disposition home or self-care (01) ==
PROVIDERS: Emergency Provider Emergency Medicine; PCP Internal Medicine; Visit Provider Emergency Medicine
DX: S01.01XA Laceration without foreign body of scalp, initial encounter (principal); E78.00 Pure hypercholesterolemia, unspecified; I25.10 Atherosclerotic heart disease of native coronary artery without angina pectoris; I25.2 Old myocardial infarction; J45.909 Unspecified asthma, uncomplicated; Z86.73 Personal history of transient ischemic attack (TIA), and cerebral 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; Z79.82 Long term (current) use of aspirin; Z79.899 Other long term (current) drug therapy; Z79.01 Long term (current) use of anticoagulants; Z86.711 Personal history of pulmonary embolism; W22.8XXA Striking against or struck by other objects, initial encounter
CPT/HCPCS: 70450; 72125; 72170; 73080; 99284

== ENCOUNTER 2022-07-30 15:00 | Outpatient (RCR) | payer MEDICARE, OTHER, SELFPAY ==
--- NOTE | 2022-02-04 14:02 | HP.PTEVAL_ITS ---
Patient's Visit Information SHELDON ALAN is a 81 year old F referred to Physical Therapy by Dr. Arun Ramos MD with a diagnosis of Debilitation. Date of Evaluation: 02/04/22 Physical Therapist: Gunnar Graves PT, ATC - Visit Plan Frequency: 2-3x /Week Duration: 4-6 Weeks Plan: B LE strengthening, balance and proprio, gait training, nustep, and HEP - Subjective Pt is here with that is giving most of her history secondary to dementia. Pt fell out of bed in 07/2021 which resulted in severe LBP. Pt was intermittently in and out of the hospital until November of this year. Pt then had home health for the past 8 weeks. Pt is limited at this time with activity secondary to dementia. Pt does have a Hx of falls starting back in 2018. Pt has good sensation is her feet and denies any tingling or numbness at this time. Pt has been ambulating with the use of a rollator and a wheeled walker for over a year. Pt lives in a one story setup. Pt denies any pain at this time. - Objective Neuro: B LE sensation is WNL to light touch. B patellar reflex= 2/3. ROM: B LE's are WFL when compared bilaterally. MMT: B LE's are grossly 4-/5 throughout. Gait : Pt is able to ambulate 340' with CGAx1 and WW until feeling fatigued. Transfers: Pt is a Kj x 1 with sit to stand - Balance/Special Test Scores Lower Extremity Functional Score: 14 - Goals Goal 1:: Increase B LE strength x 1 grade to aid with stair negotiation Goal Time Frame: 4-6 Weeks Goal 2:: Pt will be able to ambulate 600 feet with WW to aid with community ambulation Goal Time Frame: 4-6 Weeks Goal 3:: I with HEP Goal Time Frame: 4-6 Weeks - Rehabilitation Potential Physical Therapy Diagnosis: Pt has LE weakness, difficulty with ambulation, and difficulty with transfers secondary to debilitation Rehabilitation Potential: Good - Anticipated Interventions Patient/Client Instruction: Educate patient on: Condition, Plan of Care For the Purpose of:: To improve self management Therapeutic Exercise to Include: Strength training, Endurance training, Balance training, Gait and locomotor training For the Purpose of:: To improve muscle performance and motor function, To improve ability to perform ADL's, To increase tolerance to activity/condition/po sition Thank you for the opportunity to evaluate your patient. For Medicare and Medicare HMO plans, please review the plan of care and approve it. It will need to be FAXED BACK to us at [phone] for Medicare purposes. For Medicare only, by signing this I certify the plan of care. Please let me know if there are questions or concerns regarding this plan of care. Physician Signature: Date:
--- NOTE | 2022-03-05 14:12 | HP.PTREVAL ---
Dr. Arun Ramos MD, It has been my pleasure to treat SHELDON ALAN over the last 7 visits for Debilitation. Please see the progress note below for an update on the physical therapy plan of care! Subjective: Pt reports she feels more confident in walking and some unsteadiness with gait Objective/Function: MMT: B knee ext= 5/5. All other B LE MMT 4/5 throughout. Gait: Pt is able to ambulate greater than 600' with rollator without difficulty. Stairs: Pt is able to negotiate 10 steps with 2 handrails, one step at a time. Balance: Pt is unable to ambulate without the use of an AD at this time. Pt is making significant progress toward Rx goals. Still lacks LE strength and balance Plan Plan: B LE strengthening, balance and proprio, gait training, nustep, and HEP Balance/Gait/Functional tests - Balance/Special Test Scores Lower Extremity Functional Score: 19 Goals Goal 1:: Increase B LE strength x 1 grade to aid with stair negotiation Goal Time Frame: 4-6 Weeks Goal Progress: Progressing Goal 2:: Pt will be able to ambulate 600 feet with WW to aid with community ambulation Goal Time Frame: 4-6 Weeks Goal Progress: Goal Met Goal 3:: I with HEP Goal Time Frame: 4-6 Weeks Goal Progress: Progressing Goal 4:: Pt will be able to negotiate one step at a time reciprocally to aid with I at home Goal Time Frame: 4-6 Weeks Goal Progress: New goal Anticipated Interventions Patient/Client Instruction: Educate patient on: Condition, Plan of Care For the Purpose of:: To improve self management Therapeutic Exercise to Include: Strength training, Endurance training, Balance training, Gait and locomotor training For the Purpose of:: To improve muscle performance and motor function, To improve ability to perform ADL's, To increase tolerance to activity/condition/position Please do not hesitate to contact me at [phone] by phone or if you have questions or concerns regarding this new plan of care! Sincerely, Gunnar Graves, PT, ATC
--- NOTE | 2022-04-05 15:06 | HP.PTREVAL ---
Dr. Arun Ramos MD, It has been my pleasure to treat SHELDON ALAN over the last 19 visits for Debilitation. Please see the progress note below for an update on the physical therapy plan of care! Subjective: Pt reports she is improving, but still has a lot of improvement to make at this time. Objective/Function: MMT: L LE is grossly 4-/5 throughout, R LE is grossly 4/5 throughout. Pt still has significant difficulty with stair negotiation. Gait: Pt is able to ambulate 600', but is very fatigued after walking. Pt makes very sharp turns and takes very little steps which makes her more at risk for falling at this time. Pt is able to negotiate stairs at this time with reciprocation, but requires 2 handrails for safety. Pt is progressing well towards Rx goals. Plan Plan: Continue to progress with focus on B LE strengthening, balance, and gait training Balance/Gait/Functional tests - Balance/Special Test Scores Lower Extremity Functional Score: 20 TUG Test Time Seconds: 15.59 Tug Test: <20 sec.=mostly independent Goals Goal 1:: Increase B LE strength x 1 grade to aid with stair negotiation Goal Time Frame: 4-6 Weeks Goal Progress: Progressing Goal 2:: Pt will be able to ambulate 600 feet with WW to aid with community ambulation Goal Time Frame: 4-6 Weeks Goal Progress: Goal Met Goal 3:: I with HEP Goal Time Frame: 4-6 Weeks Goal Progress: Goal Met Goal 4:: Pt will be able to negotiate one step at a time reciprocally to aid with I at home Goal Time Frame: 4-6 Weeks Goal Progress: Goal Met Goal 5:: Pt will be able to make smooth turns throughout hallways in order to reduce the risk of future falls Goal Progress: New goal Goal 6:: Pt will be able to ambulate greater than 1000' in order to aid with community ambulation Goal Progress: New goal Anticipated Interventions Patient/Client Instruction: Educate patient on: Condition, Plan of Care For the Purpose of:: To improve self management Therapeutic Exercise to Include: Strength training, Endurance training, Balance training, Gait and locomotor training For the Purpose of:: To improve muscle performance and motor function, To improve ability to perform ADL's, To increase tolerance to activity/condition/position Please do not hesitate to contact me at [phone] by phone or if you have questions or concerns regarding this new plan of care! Sincerely, Gunnar Graves, PT, ATC
--- NOTE | 2022-04-18 13:10 | HP.SP.EV_ITS ---
History - History Date of Eval: 04/18/22 Previous speech therapy: No Other Relevant Medical History/Diagnoses/Surgery: Lauren is a 81 y.o. female who was seen at [facility] for a speech and language evaluation. 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 Smoking Status: Never smoker Hx Tobacco Use: No - Pain Is pain an issue with your current prescribed condition?: No Patient Allergies - Allergies Allergies doxycycline Allergy (Mild, Verified 03/27/22 14:09) Vomiting oxycodone [From Percocet] Allergy (Mild, Verified 03/27/22 14:09) Confusion acetaminophen [From Darvocet-N] Allergy (Verified 03/27/22 14:09) Other lamotrigine [From Lamictal] Allergy (Verified 03/27/22 14:09) Lip Swelling latex Allergy (Verified 03/27/22 14:09) Rash moxifloxacin HCl [From Avelox] Allergy (Verified 03/27/22 14:09) Other propoxyphene napsylate [From Darvocet-N] Allergy (Verified 03/27/22 14:09) Other zolpidem tartrate [From Ambien] Adverse Reaction (Verified 03/27/22 14:09) Other Subjective Dysphagia - Comments Pt stated that she has swallowing issues in the past, but has been consuming a normal diet with issues since her espogeal dilation procedure -: Pt stated she rarely has any swallowing issues since her procedure, and is tolerating her current diet Subjective Cog/Ling/Com - Subjective Cognitive/Linguistic/Communication: Pt stated she forgets to use her walker, get out of a chair, and which bathroom to use at her house. Pt stated that she used to be able to complete mental math in her head and now is unable to. She has trouble with sequencing tasks. She does not manage her medication, but is worried she will not be able to catch errors independently. She does not cook at home, but wishes to be able to cook simple recipes. Pt also requires assistance using her telephone. She likes to play card games, but often needs prompting or forgets how to play more complex games. Her short term memory is a bigger issues than her retirement memory at this time. She would also like to have a memorized script for an emergency incase her needs medical assistance. Objective Cog/Ling/Com - Test Administered Wwuhwcyvc-Gckknaagrl-Eilcpoyojvklb Assessment Administered: Yes [id number] Assessment: Cognitive ? Linguistic skills were evaluated using patient/family interview, skilled observation and informal evaluation through tasks completed by the patient. - Orientation Orientation: Person, Place, Date, Day, Medical Diagnosis - Follows Commands 1 Step: WFL - Automatic Sequences Automatic Sequences: WFL - Repetition Words: WNL Sentences: WNL - Recall Repeating Digits: Repeated up to 3 numbers backwards. Repeating Words: Repeated 5 words Repeating Sentences: Repeated address x3 times Percent recall of paragraph information (y/n questions): 4/4 questions - Medication Reading a medication label: Moderate Correctly stating instructions of medications: Moderate Completing medications independently: Severe - Numerical Skills Determining Change: Simple money, math: 0/2 Telling Time: Pt silva time on the clock correctly. Pt did not evenly space the numbers on the clock face. - Organization Adding members to categories: Mild - Verbal Sequencing Verbal Sequencing: Mild - Cognitive Linguistic Supervision/Saftey Awareness of deficits: WFL Being left home alone: Severe Managing medications: Severe Managing finances: Severe - Executive Function Comments Comments: Pt stated she has difficulty with mental math. She has trouble thinking through and completing tasks. Plan - Plan Plan: Will recommend Pt for weekly outpatient speech therapy to address mod- severe cognitive impairment characterized by deficits in short-term memory, executive functioning, problem solving/reasoning, and safety awareness. Pt would benefit from training in compensatory strategies for recall, as well as cogn itive training to improve cognitive functioning. Without skilled ST services, the Pt is at risk for decreased independence completing daily living tasks - Recommendations MBS: No Treatment Warranted: Yes Treatment Warranted: Cognition - Progress Prognosis: Good - Frequency Frequency: 1x/Week Duration: 4-6 Months - Goals that are Established Determination:: Goals will be added/modified as deemed necessary and appropriate. Therapy will be discontinued when results of re-evaluation indicate therapy is no longer needed or lack of progress has been documented. - Goal #1-5 Goal #1: Pt will complete basic to mod complex planning, organizing, and sequencing tasks with 90% acc independently across 3/4 measured opportunities. Goal #2: Pt will modify environment at home via implementing memory compensatory strategies within 3 weeks' time of their initial evaluation Goal #3: Pt will complete basic to mod complex problem solving/reasoning and safety awareness tasks with 90% acc independently across 3/4 measured opportunities Goal #4: Pt will complete basic to mod complex short-term and working memory tasks with 90% acc independently across 3/4 measured opportunities. Goal #5: Pt will complete basic to mod complex functional math, money, and time tasks with 90% acc independently across 3/4 measured opportunities. Education - Patient has Indicated that the Following Identified Educational Needs: None The Patient has indicated that they have no educational or learning abilities that may effect their care.: Yes - Patient Instruction Patient Education: Diagnosis, Treatment Plan, Goals Person Taught: Patient, Significant Other Teaching Method: Discussion Response to teaching: Verbalize understanding
--- NOTE | 2022-05-09 15:07 | HP.PTREVAL ---
Dr. Arun Ramos MD, It has been my pleasure to treat SHELDON ALAN over the last 28 visits for Debilitation. Please see the progress note below for an update on the physical therapy plan of care! Subjective: I am doing better, but I am still limited with walking and balance Objective/Function: MMT: R LE is grossly 5/5 throughout, L LE is grossly 4/5 throughout. Gait: Pt is able to ambulate 390 feet until feeling dizzy and needing to sit down. Stairs: Unable to attempt today secondary dizziness. Pt is progressing well but is weak and dizzy today. Pt would benefit from further strengthening and balance activity Plan Plan: Cont with focus on strengthening and balance activity Balance/Gait/Functional tests - Balance/Special Test Scores Lower Extremity Functional Score: 46 TUG Test Time Seconds: 12.23 Tug Test: <20 sec.=mostly independent 30 Second Chair Rise Test Seconds: 6 Goals Goal 1:: Increase B LE strength x 1 grade to aid with stair negotiation Goal Time Frame: 4-6 Weeks Goal Progress: Progressing Goal 2:: Pt will be able to ambulate 600 feet with WW to aid with community ambulation Goal Time Frame: 4-6 Weeks Goal Progress: Progressing Goal 3:: I with HEP Goal Time Frame: 4-6 Weeks Goal Progress: Goal Met Goal 4:: Pt will be able to negotiate one step at a time reciprocally to aid with I at home Goal Time Frame: 4-6 Weeks Goal Progress: Goal Met Goal 5:: Pt will be able to make smooth turns throughout hallways in order to reduce the risk of future falls Goal Progress: New goal Goal 6:: Pt will be able to ambulate greater than 1000' in order to aid with community ambulation Goal Progress: New goal Anticipated Interventions Patient/Client Instruction: Educate patient on: Condition, Plan of Care For the Purpose of:: To improve self management Therapeutic Exercise to Include: Strength training, Endurance training, Balance training, Gait and locomotor training For the Purpose of:: To improve muscle performance and motor function, To improve ability to perform ADL's, To increase tolerance to activity/condition/position Please do not hesitate to contact me at [phone] by phone or if you have questions or concerns regarding this new plan of care! Sincerely, Gunnar Graves, PT, ATC
--- NOTE | 2022-06-10 14:04 | HP.PTREVAL_ITS ---
Dr. Arun Ramos MD, It has been my pleasure to treat SHELDON ALAN over the last 36 visits for Debilitation. Please see the progress note below for an update on the physical therapy plan of care! Subjective: Pt reports she continues to notice improvements, but is still limited with community ambulation Objective/Function: Pt is now able to ambulate with WW 1000 feet without difficulty. B LE strength is 4-/5 throughout. Pt still requires VC'ing for gym setup. Pt is progressing well towards Rx goals Plan Plan: cont now with emphasis on transition to gym routine Balance/Gait/Functional tests - Balance/Special Test Scores Lower Extremity Functional Score: 38 TUG Test Time Seconds: 12.23 Tug Test: <20 sec.=mostly independent 30 Second Chair Rise Test Seconds: 2 6 Minute Walk Test: 656 feet without AD. Cues necessary for increased hip flexion during swing, longer stride length. Goals Goal 1:: Increase B LE strength x 1 grade to aid with stair negotiation Goal Time Frame: 4-6 Weeks Goal Progress: Progressing Goal 2:: Pt will be I with gym routine Goal Time Frame: 4-6 Weeks Goal Progress: New goal Goal 3:: I with HEP Goal Time Frame: 4-6 Weeks Goal Progress: Goal Met Goal 4:: Pt will be able to negotiate one step at a time reciprocally to aid with I at home Goal Time Frame: 4-6 Weeks Goal Progress: Goal Met Goal 5:: Pt will be able to make smooth turns throughout hallways in order to reduce the risk of future falls Goal Progress: Goal Met Goal 6:: Pt will be able to ambulate greater than 1000' in order to aid with community ambulation Goal Progress: Goal Met Anticipated Interventions Patient/Client Instruction: Educate patient on: Condition, Plan of Care For the Purpose of:: To improve self management Therapeutic Exercise to Include: Strength training, Endurance training, Balance training, Gait and locomotor training For the Purpose of:: To improve muscle performance and motor function, To improve ability to perform ADL's, To increase tolerance to acti vity/condition/position Please do not hesitate to contact me at [phone] by phone or if you have questions or concerns regarding this new plan of care! Sincerely, Gunnar Graves, PT, ATC
--- NOTE | 2022-07-24 09:55 | HP.SPREEV_ITS ---
History - History Date of Eval: 04/18/22 Previous speech therapy: No Other Relevant Medical History/Diagnoses/Surgery: Lauren is a 81 y.o. female who was seen at [facility] for a speech and language evaluation. Medications related to this diagnosis: Pt is on 20 medications a day which is managed by her and account liaison hospice. Smoking Status: Never smoker Hx Tobacco Use: No - Pain Is pain an issue with your current prescribed condition?: No Patient Allergies - Allergies Allergies doxycycline Allergy (Mild, Verified 07/22/22 14:42) Vomiting oxycodone [From Percocet] Allergy (Mild, Verified 07/22/22 14:42) Confusion acetaminophen [From Darvocet-N] Allergy (Verified 07/22/22 14:42) Other lamotrigine [From Lamictal] Allergy (Verified 07/22/22 14:42) Lip Swelling latex Allergy (Verified 07/22/22 14:42) Rash moxifloxacin HCl [From Avelox] Allergy (Verified 07/22/22 14:42) Other propoxyphene napsylate [From Darvocet-N] Allergy (Verified 07/22/22 14:42) Other zolpidem tartrate [From Ambien] Adverse Reaction (Verified 07/22/22 14:42) Other Previous/Current Goals - Goals 1-5 Previous Goal #1: Pt will complete basic to mod complex planning, organizing, and sequencing tasks with 90% acc independently across 3/4 measured opportunities. Goal 1 Status: Goal Progressing: Pt completed a meal planning exercise with min cues and 70% acc. Pt completed a gift planning exercise with mod to max cues with 60% acc. Previous Goal #2: Pt will modify environment at home via implementing memory compensatory strategies within 3 weeks' time of their initial evaluation Goal 2 Status: Goal Progressing: Pt used the daily planned 1/7 days last week. Lauren used the packing list made in therapy to pack for respite care next week. A contingency plan for if pt's was unable to care for her. Pt's got a plan in place Previous Goal #3: Pt will complete basic to mod complex problem solving/reasoning and safety awareness tasks with 90% acc independently across 3/4 measured opportunities Goal 3 Status: Goal Partially Met: Pt answered questions about a medication label with 100% acc Previous Goal #4: Pt will complete basic to mod complex short-term and working memory tasks with 90% acc independently across 3/4 measured opportunities. Goal 4 Status: Goal Progressing: Pt with 2 instances of changing her short term answers. Previous Goal #5: Pt will complete basic to mod complex functional math, money, and time tasks with 90% acc independently across 3/4 measured opportunities. Goal 5 Status: Goal Partially Met: Pt completed simple math problems with 100% acc. Subjective Dysphagia - Comments Pt stated that she has swallowing issues in the past, but has been consuming a normal diet with issues since her espogeal dilation procedure -: Pt stated she rarely has any swallowing issues since her procedure, and is tolerating her current diet Subjective Cog/Ling/Com - Subjective Cognitive/Linguistic/Communication: Pt has been making improvements with problem solving and utilizing compensatory strategies to improve her home environment. Objective Cog/Ling/Com - Test Administered Mtniuxtun-Okhmvukvzc-Efgprnolehtcz Assessment Administered: Yes Mzlidmxaw-Hfmsrcvgto-Qddhthrxtilst Assessment: Cognitive ? Linguistic skills were evaluated using patient/family interview, skilled observation and informal evaluation through tasks completed by the patient. - Orientation Orientation: Person, Place, Date, Day, Medical Diagnosis - Follows Commands 1 Step: WFL - Automatic Sequences Automatic Sequences: WFL - Repetition Words: WNL Sentences: WNL - Recall Repeating Digits: Repeated up to 3 numbers backwards. Repeating Words: Repeated 5 words Repeating Sentences: Repeated address x3 times Percent recall of paragraph information (y/n questions): 4/4 questions - Medication Reading a medication label: Moderate Correctly stating instructions of medications: Moderate Completing medications independently: Severe - Numerical Skills Determining Change: Simple money, math: 0/2 Telling Time: Pt silva time on the clock correctly. Pt did not evenly space the numbers on the clock face. - Organization Adding members to categories: Mild - Verbal Sequencing Verbal Sequencing: Mild - Cognitive Linguistic Supervision/Saftey Awareness of deficits: WFL Being left home alone: Severe Managing medications: Severe Managing finances: Severe - Executive Function Comments Comments: Pt stated she has difficulty with mental math. She has trouble thinking through and completing tasks. Plan - Plan Plan: Continued therapy is recommended to address moderate cognitive impairment characterized by deficits in short-term memory, executive functioning, problem solving/reasoning, and safety awareness. Pt would benefit from training in compensatory strategies for recall, as well as cognitive training to improve cognitive functioning. Without skilled ST services, the Pt is at risk for decreased independence completing daily living tasks - Recommendations MBS: No Treatment Warranted: Yes Treatment Warranted: Cognition - Progress Prognosis: Good - Frequency Frequency: 1x/Week Duration: 2 Months - Goals that are Established Determination:: Goals will be added/modified as deemed necessary and appropriate. Therapy will be discontinued when results of re-evaluation indicate therapy is no longer needed or lack of progress has been documented. - Goal #1-5 Goal #1: Pt will complete basic to mod complex planning, organizing, and sequencing tasks with 90% acc independently across 3/4 measured opportunities. Goal #2: Pt will modify environment at home via implementing memory compensatory strategies and utilize strategies to help her complete her tasks of daily living as measured by a self report checklist. Goal #3: Pt will complete basic to mod complex problem solving/reasoning and safety awareness tasks with 90% acc independently across 3/4 measured opportunities Goal #4: Pt will complete basic to mod complex short-term and working memory tasks with 90% acc independently across 3/4 measured opportunities. Goal #5: Pt will complete basic to mod complex functional math, money, and time tasks with 90% acc independently across 3/4 measured opportunities. Education - Patient has Indicated that the Following Identified Educational Needs: None The Patient has indicated that they have no educational or learning abilities that may effect their care.: Yes - Patient Instruction Patient Education: Diagnosis, Treatment Plan, Goals Person Taught: Patient, Significant Other Teaching Method: Discussion Response to teaching: Verbalize understanding
== END 2022-07-30 19:00 | disposition home or self-care (01) ==
LOC: SP 15:00
PROVIDERS: Referring Provider Family Medicine Geriatric Medicine; Visit Provider Family Medicine Geriatric Medicine
DX: F03.90 Unspecified dementia, unspecified severity, without behavioral disturbance, psychotic disturbance, mood disturbance, and anxiety; R41.841 Cognitive communication deficit
CPT/HCPCS: 92507; 92523; 97110; 97129; 97130; 97161; 97164

== ENCOUNTER → 2022-09-06 | Outpatient (CLI) | payer MEDICARE, OTHER, SELFPAY ==
--- NOTE | 2022-09-06 10:22 | MRI_ITS ---
INDICATION: OSTEOARTHRITIS, pain after fall 2 months ago EXAMINATION: MRI - LEFT MR Shoulder W/O Contrast TECHNIQUE: Multiplanar and multisequence MR images of the left shoulder without contrast. IV Contrast Dosage and Agent: None. COMPARISON: Shoulder radiograph July 18, 2022. FINDINGS: BONE: No fracture or aggressive osseous lesion. Mild enthesopathic cystic change of the greater tuberosity.. ACROMIOCLAVICULAR JOINT: Normal alignment. Mild degenerative osteophyte formation. Minimal inferolateral acromial tilt. Coracoclavicular ligaments are intact. SUBACROMIAL-SUBDELTOID SPACE: Trace subacromial subdeltoid bursal fluid. GLENOHUMERAL JOINT: Normal alignment. Large joint effusion which decompresses into the subcoracoid recess. Mild diffuse chondral thinning without focal full-thickness chondral loss or subchondral edema. Minimal humeral head osteophyte formation. Unremarkable rotator interval. ROTATOR CUFF: 3.5 mm insertional tear at the junction of supraspinatus and infraspinatus tendons, coronal image 9. Diffuse mild supraspinatus tendinosis. No rotator cuff muscle atrophy. LABRUM: Diffuse degenerative change. . BICEPS TENDON: The extra-articular biceps tendon is in the bicipital groove. Mild increased fluid signal within the intra-articular biceps tendon.. OTHER SOFT TISSUES: Unremarkable suprascapular notch.. Likely prominent vessels inferior to the spinoglenoid notch. MRI/Upper Ext Joint Only(Routine) IMPRESSION: 1. Glenohumeral effusion with mild degenerative changes. 2. Small rim rent insertional rotator cuff tear along the supraspinatus/infraspinatus junction 3. Mild subacromial subdeltoid bursitis. There is mild acromial clavicular osteoarthritis with minimal inferolateral acromial tilt of uncertain clinical significance. Mild underlying supraspinatus tendinosis. 4. Mild intra-articular biceps tendinosis. Electronically Signed: Alejandro Batista MD at 8:49 EST ,
== END | disposition home or self-care (01) ==
LOC: MRI 10:19
PROVIDERS: PCP Internal Medicine; Referring Provider Orthopaedic Surgery; Visit Provider Orthopaedic Surgery
DX: M19.012 Primary osteoarthritis, left shoulder (principal); M25.419 Effusion, unspecified shoulder; M19.039 Primary osteoarthritis, unspecified wrist; M75.102 Unspecified rotator cuff tear or rupture of left shoulder, not specified as traumatic; S46.812A Strain of other muscles, fascia and tendons at shoulder and upper arm level, left arm, initial encounter
CPT/HCPCS: 73221

== ENCOUNTER → 2022-09-21 | Outpatient (CLI) | payer MEDICARE, OTHER, SELFPAY ==
--- NOTE | 2022-09-21 11:53 | RAD_ITS ---
HISTORY: fall. TECHNIQUE: XR Elbow Min 3 Views. COMPARISON: 07/13/2022. FINDINGS: BONES : No acute fracture identified. Mild osteopenia. JOINTS: No dislocation. Joint spaces maintained. SOFT TISSUES: Mild soft tissue swelling. RAD/Elbow min 3 Views IMPRESSION: No acute fracture or dislocation identified in the left elbow. Electronically Signed: Alem Cordero MD at 13:15 EST ,
--- NOTE | 2022-09-21 11:53 | RAD_ITS ---
HISTORY: fall. TECHNIQUE: XR Shoulder Min 2 Views. COMPARISON: 07/18/2022. FINDINGS: BONES : No acute fracture identified. Mild osteopenia. Chronic lumbar compression fractures with vertebroplasty. JOINTS: No dislocation. Mild degenerative change. SOFT TISSUES: Surgical clips in the left axilla. Atelectasis in the left lung base. Large fluid-filled hiatal hernia. RAD/Shoulder min 2 Views IMPRESSION: No acute fracture or dislocation identified in the left shoulder. Electronically Signed: Alem Cordero MD at 13:14 EST ,
--- NOTE | 2022-09-21 11:53 | RAD_ITS ---
HISTORY: fall. TECHNIQUE: XR Wrist Min 3 Views. COMPARISON: 06/28/2020. FINDINGS: BONES : Healed interarticular fracture of the distal radius. Generalized osteopenia. Erosion of the ulnar styloid. JOINTS: No dislocation. Degenerative change. SOFT TISSUES: Mild soft tissue swelling. RAD/Wrist min 3 Views IMPRESSION: No acute fracture or dislocation identified in the left wrist. Old fracture of the distal radius. Arthritis with erosion of the ulnar styloid. Electronically Signed: Alem Cordero MD at 13:16 EST ,
== END | disposition home or self-care (01) ==
LOC: RAD 11:52
PROVIDERS: PCP Internal Medicine; Referring Provider Physician Assistant; Visit Provider Physician Assistant
DX: S59.902A Unspecified injury of left elbow, initial encounter (principal); S49.92XA Unspecified injury of left shoulder and upper arm, initial encounter; S69.92XA Unspecified injury of left wrist, hand and finger(s), initial encounter
CPT/HCPCS: 73030; 73080; 73110

== ENCOUNTER 2022-10-16 17:17 | Emergency (ER) | payer MEDICARE, OTHER, SELFPAY ==
[2022-10-16 17:21] VITALS: BP 160/92; PULSE 81; RESP 14; TEMP 36.8; O2SAT 94; BMI 24.1
--- NOTE | 2022-10-16 18:50 | EX.ED.UPPERE ---
HPI History of Present Illness Chief Complaint: Upper Extremity Injury Narrative Narrative: 82-year-old female, essentially [id number], presents with pain and swelling of her left elbow that began this afternoon. She has chronic history of left shoulder pain and is receiving injections into her shoulder by her pain management physician, Dr. Logan. She and her significant other related history of fall 4 to 6 weeks ago where x-rays of the left elbow were performed, and of the left shoulder. She denies any current injury. No fever or chills, but she has pain and swelling in her left elbow. Pain is worse with movement. It is relieved by nothing. [facility] Medical History aquired autoimmune encephalopathy Arthritis Asthma Atherosclerotic heart disease of [place] coronary artery without angina pectoris Back pain Bladder disease Cancer Cardiology follow-up encounter Contusion of left shoulder Contusion of left wrist Dementia Dementia Depression Difficulty swallowing DVT (deep venous thrombosis) Essential hypertension Falls frequently Gastric reflux h/o back surgery Health care maintenance Heart disease High cholesterol History of heart attack History of stress test Hx of echocardiogram Hypertension Hypertension Influenza A Injury of left elbow Injury of left shoulder Left elbow contusion Low iron Non-smoker Partial complex seizures Presence of stent in coronary artery (~1989) Restless legs Scalp contusion Seizures Shortness of breath on exertion TIA (transient ischemic attack) Walker as ambulation aid Home Medications lacosamide 100 mg tablet (Vimpat) 100 mg PO BID Check with primary doctor 06/28/20 [History Last Taken 10/05/21] mirabegron 50 mg tablet,extended release 24 hr (Myrbetriq) 100 mg PO QHS Check with primary doctor 11/06/20 [History Last Taken 10/04/21] PEP device #1 ea 05/09/21 [Rx Last Taken Unknown] memantine 10 mg tablet 10 mg PO BID Alzheimer's 05/09/21 [History Last Taken 10/05/21] L.acidophil-L.casei-B.bifid-B.longum-FOS 2 billion cell-50 mg capsule (Probiotic Blend) 1 cap PO DAILY Supplement 09/02/21 [History Last Taken 10/05/21] aspirin 81 mg tablet,delayed release (Adult Aspirin Regimen) 81 mg PO DAILY 01/10/22 [History Last Taken Unknown] tolterodine 4 mg capsule,extended release 24 hr (Detrol LA) 4 mg PO DAILY 01/10/22 [History Last Taken Unknown] albuterol sulfate 2.5 mg/3 mL (0.083 %) solution for nebulization 2.5 mg (3 mL) inhalation Q6H PRN Sob &/Or Wheezing #180 mL 02/11/22 [Rx Last Taken Unknown] BD Sry/needle eclips IM 04/25/22 [History Last Taken Unknown] pramipexole 0.5 mg tablet (Mirapex) 0.5 mg PO BID 04/25/22 [History Last Taken Unknown] vortioxetine 20 mg tablet (Trintellix) 20 mg PO DAILY DEPRESSION #90 tabs 05/01/22 [Rx Last Taken Unknown] atorvastatin 40 mg tablet 40 mg PO DAILY #90 tabs 06/07/22 [Rx Last Taken Unknown] cranberry 500 mg capsule 500 mg PO DAILY 06/07/22 [History Last Taken Unknown] d-mannose 500 mg capsule 500 mg PO DAILY 06/07/22 [History Last Taken Unknown] denosumab 60 mg/mL subcutaneous syringe (Prolia) 60 mg subcut [id number] 06/07/22 [History Last Taken Unknown] famotidine 10 mg tablet 10 mg PO BID 06/07/22 [History Last Taken Unknown] multivitamin 1 tab PO DAILY 06/07/22 [History Last Taken Unknown] apixaban 5 mg tablet (Eliquis) 5 mg PO BID #180 tabs 06/24/22 [Rx Last Taken Unknown] tramadol 50 mg tablet 50 mg PO TID PRN pain 4 days #12 tabs 07/13/22 [Rx Last Taken Unknown] cyanocobalamin (vitamin B-12) 1,000 mcg/mL injection solution (Dodex) 1,000 mcg IM QMONTH 08/15/22 [History Last Taken Unknown] levothyroxine 25 mcg tablet (Synthroid) 25 mcg PO DAILY Thyroid #90 tabs 08/22/22 [Rx Last Taken Unknown] Allergy/AdvReac Type Severity Reaction Status Date / Time doxycycline Allergy Mild Vomiting Verified 10/16/22 17:20 oxycodone [From Percocet] Allergy Mild Confusion Verified 10/16/22 17:20 acetaminophen Allergy Other Verified 10/16/22 17:20 [From Darvocet-N] lamotrigine [From Lamictal] Allergy Lip Verified 10/16/22 17:20 Swelling latex Allergy Rash Verified 10/16/22 17:20 moxifloxacin HCl Allergy Other Verified 10/16/22 17:20 [From Avelox] propoxyphene napsylate Allergy Other Verified 10/16/22 17:20 [From Darvocet-N] zolpidem tartrate AdvReac Other Verified 10/16/22 17:20 [From Ambien] Family History Mother CVA (cerebral vascular accident) Arthritis Father Myocardial infarction, Onset Age: 40 Alcoholism Hypertension Sister Anemia Grandmother Bowel disease Osteoporosis Ovarian cancer Surgical History H/O kyphoplasty History of appendectomy History of cardiac catheterization History of carpal tunnel release History of esophagogastroduodenoscopy (EGD) History of hammer toe correction History of hernia surgery History of laryngoscopy History of lumbar laminectomy History of lumpectomy of left breast History of tonsillectomy and adenoidectomy Hx of cataract extraction Hx of colonoscopy Hx of ventral hernia repair Presence of coronary angioplasty implant and graft (~1989) Social History household members: spouse housing: house Smoking Status: Never smoker alcohol intake: current alcohol intake frequency: a few times a week Alcohol type: wine substance use type: does not use caffeine: Yes Type: coffee Number of servings: 1 what type of physical activity do you participate in: other details: PT 3x weekly frequency: 3-4 times per week do you feel safe at home: Yes ROS ROS ED ROS Narrative Constitutional: No fever, no chills. HEENT: No sore throat. No neck pain. No loss of vision. No rhinorrhea. Cardiovascular: No chest pain. No palpitations. No pedal edema. Respiratory: No cough, no shortness of breath. Abdominal: No abdominal pain. No nausea. No vomiting. Genitourinary: No dysuria. No hematuria. Musculoskeletal: No myalgias. Pain and swelling of left elbow. Neurologic: No headaches. No dizziness. No lightheadedness. Skin: No rash. No change in color. Psychiatric: No depression. No anxiety. EXAM Physical Exam Narrative Exam Narrative: Afebrile. Vital signs noted. HEENT: Normocephalic. Atraumatic. PERRL, EOMI. Neck soft and supple. No point tenderness or step off. Cardiovascular: Regular rate and rhythm. No murmurs, rubs, or gallops appreciated. Respiratory: No tachypnea. Lungs clear to auscultation bilaterally. Gastrointestinal: Abdomen soft, nontender, with normoactive bowel sounds. No rebound or guarding. Neurological: Awake. Alert. Nonfocal, nonlateralizing. Skin: No rash. Normal color. No pallor. Musculoskeletal: No pedal edema. Full range of motion extremities. Positive swelling left olecranon bursa. No erythema. Extension and flexion mechanism of elbow intact. Able to pronate and supinate. Palpable radial pulse. Const Vital Signs: 10/16/22 17:21 Temperature 98.2 F Temperature Source Temporal Pulse Rate 81 Respiratory Rate 14 Blood Pressure 160/92 H Blood Pressure Mean 114 Pulse Ox 94 Oxygen Delivery Method Room Air MDM MDM MDM Narrative Medical decision making narrative: I do feel that the patient has an olecranon bursitis. I do not think that it is a septic bursitis which requires antibiotics. She is already in pain management. She has seen Dr. Layne with orthopedics in the past. I will obtain x-rays of the left elbow and compare them to prior if available. I interpreted her left elbow x-rays. There is now olecranon bursa soft tissue swelling but no evidence of an acute fracture. I reviewed the radiology report which confirms this. At this point in time, I feel she can be discharged safely home to follow-up with orthopedics. She states she prefers to follow-up initially with her pain management doctor. She was given a dose of tramadol here at her request, and told to continue her tramadol that she takes for her shoulder pain. Additionally, they were concerned because they state that it is difficult for them to get into orthopedics. They were told to call the office as soon as possible for an appointment, even tomorrow. I feel she can be discharged safely home with follow-up. Her elbow was wrapped in an Robin wrap for support and mild compression. Return instructions to the emergency department were reviewed. Disposition is discharged home in stable condition. Discharge Plan Triage Chief Complaint: Upper Extremity Injury ED Provider: Cal Keith Dx/Rx/DC Orders Clinical Impression: Olecranon bursitis of left elbow, Elbow pain, left Instructions: ED Bursitis Elbow Olecranon Prescriptions: No Action Vimpat 100 mg tablet 100 mg PO BID Myrbetriq 50 mg tablet extended release 24 hr 100 mg PO QHS memantine 10 mg tablet 10 mg PO BID (DME) PEP device See Rx Instructions .ROUTE .MEDSUPPLY Qty: 1 0RF Rx Instructions: with training aspirin [Adult Aspirin Regimen] 81 mg tablet,delayed release (DR/EC) 81 mg PO DAILY tolterodine [Detrol LA] 4 mg capsule,extended release 24hr 4 mg PO DAILY multivitamin Tablet 1 tab PO DAILY famotidine 10 mg tablet 10 mg PO BID cranberry 500 mg capsule 500 mg PO DAILY Rx Instructions: administer with meals Prolia 60 mg/mL syringe 60 mg subcut [id number] d-mannose 500 mg capsule 500 mg PO DAILY atorvastatin 40 mg tablet 40 mg PO DAILY Qty: 90 3RF pramipexole [Mirapex] 0.5 mg tablet 0.5 mg PO BID BD Sry/needle eclips IM Rx Instructions: 3ml #3578 Probiotic Blend 2 billion cell-50 mg Capsule 1 cap PO DAILY tramadol 50 mg tablet 50 mg PO TID PRN (Reason: pain) 4 Days Qty: 12 0RF albuterol sulfate 2.5 mg /3 mL (0.083 %) solution for nebulization 2.5 mg inhalation Q6H PRN (Reason: Sob &/Or Wheezing) Qty: 180 6RF Trintellix 20 mg tablet 20 mg PO DAILY Qty: 90 3RF Eliquis 5 mg tablet 5 mg PO BID Qty: 180 3RF cyanocobalamin (vitamin B-12) [Dodex] 1,000 mcg/mL solution 1,000 mcg IM QMONTH levothyroxine [Synthroid] 25 mcg tablet 25 mcg PO DAILY Qty: 90 3RF Primary Care Provider: Yokasta Perry Referrals: Ernesto Logan DO [Non-Staff] - 1 Day Yokasta Perry MD [Primary Care Provider] - As soon as possible Shiraz Blanchard DO [Med Staff - Active Staff] - 1 Day Disposition Disposition: Home, Self Care
--- NOTE | 2022-10-16 19:13 | RAD_ITS ---
STUDY: XR Elbow Min 3 Views REASON FOR EXAM: Female, 82 years old. LT ELBOW PAIN THAT STARTED TODAY, UNSURE OF CAUSE, COULD BE D/T FALLS APPROX 6-8 WEEKS AGO. TECHNIQUE: XR Elbow Min 3 Views LEFT COMPARISON: 2.12.08. FINDINGS: Normal visualized humerus, radius and ulna. Normal radiocapitellar and ulnotrochlear articulations. Anterior humeral line and radiocapitellar line are preserved. Since the prior study there has been development of diffuse soft tissue swelling around the posterior elbow. RAD/Elbow min 3 Views IMPRESSION: Since the prior study there has been development of diffuse soft tissue swelling around the posterior elbow. Electronically Signed: Gunnar Kendrick MD at 19:20 EST ,
[2022-10-16] MEDS: traMADol 50 MG Tablet PO (20:28)
== END 2022-10-16 20:39 | disposition home or self-care (01) ==
PROVIDERS: Emergency Provider Emergency Medicine; PCP Internal Medicine; Visit Provider Emergency Medicine
DX: M70.22 Olecranon bursitis, left elbow (principal); I25.10 Atherosclerotic heart disease of native coronary artery without angina pectoris; E78.00 Pure hypercholesterolemia, unspecified; I10 Essential (primary) hypertension
CPT/HCPCS: 73080; 99283

== ENCOUNTER → 2022-12-03 | Outpatient (CLI) | payer MEDICARE, OTHER, SELFPAY ==
[2022-12-03 09:52] LABS: Absolute Lymphocyte Count 1.62 X10^3/uL (0.83-4.51); Absolute Neutrophil Count 3.5 X10^3/uL (2.0-7.7); Basophil# 0.04 X10^3/uL; Basophil% 0.7 % (0-1); Eosinophil# 0.17 X10^3/uL; Hematocrit 38.7 % (37-47); Hemoglobin 12.1 g/dL (12.0-15.0); Lymphocyte # 1.62 X10^3/ul (0.83-4.51); Lymphocyte % 28.5 % (19-41); Mean Corp Hgb Conc 31.3 g/dL (32-36); Mean Corpuscular Hgb 26.9 pg (27.0-32.0); Mean Platelet Vol. 10.2 fl (6.2-12.0); Monocyte# 0.33 X10^3/uL; Monocyte% 5.8 % (0-10); NRBC Flagged by Analyzer 0 % (0-5); Neutrophil # 3.52 X10^3/uL (2.7-7.7); Neutrophil % 61.8 % (47-70); Platelet Count 244 K/mm3 (150-450); RBC Distribution Width CV 16.1 % (11.6-14.6); RBC Distribution Width SD 51.3 fl (35.1-43.9); White Blood Count 5.7 K/mm3 (4.4-11.0)
[2022-12-03 10:18] LABS: Vitamin B12 1344 pg/mL (211-911); Vitamin D,25 Hydroxy 54.4 ng/mL
[2022-12-03 10:28] LABS: AST(SGOT) 23 U/L (15-37); Alanine Aminotransfer ALT/SGPT 24 U/L (13-56); Albumin, Serum 3.6 g/dL (3.2-5.0); Alkaline Phosphatase 70 U/L (45-117); Anion Gap 5 (5-15); BUN 21 mg/dL (7-18); BUN/Creat Ratio 25.5 RATIO (10-20); Calcium,Total 8.7 mg/dL (8.5-10.1); Chloride 107 mmol/L (98-107); Cholesterol 124 mg/dL (200); Creatinine, Serum 0.82 mg/dL (0.55-1.02); EST Glomerular Filtration Rate 71 mL/min (>60); Est Glom Filt Rate - Afr Amer 86 mL/min (>60); Free T3 1.9 pg/mL (2.18-3.98); Globulin 3.5 g/dL (2.2-4.2); Glucose 101 mg/dL (74-106); High Density Lipoprotein 42 mg/dL; Potassium 3.7 mmol/L (3.5-5.1); Protein, Total 7.1 g/dL (6.4-8.2); Sodium Level 137 mmol/L (136-145); T4 Free Direct 1.23 ng/dL (0.76-1.46); Triglycerides 132 mg/dL; Very Low Density Lipoprotein 26 mg/dL (5-40)
== END | disposition home or self-care (01) ==
PROVIDERS: PCP Internal Medicine; Referring Provider Internal Medicine; Visit Provider Internal Medicine
DX: G40.909 Epilepsy, unspecified, not intractable, without status epilepticus (principal); I10 Essential (primary) hypertension; Z95.5 Presence of coronary angioplasty implant and graft; M81.0 Age-related osteoporosis without current pathological fracture; K21.9 Gastro-esophageal reflux disease without esophagitis; G47.33 Obstructive sleep apnea (adult) (pediatric); E03.9 Hypothyroidism, unspecified; R29.6 Repeated falls; R53.81 Other malaise; E55.9 Vitamin D deficiency, unspecified; E53.8 Deficiency of other specified B group vitamins; Z13.220 Encounter for screening for lipoid disorders
CPT/HCPCS: 36415; 80053; 80061; 82306; 82607; 84439; 84443; 84481; 85025

== ENCOUNTER → 2022-12-25 | Outpatient (CLI) | payer MEDICARE, OTHER, SELFPAY ==
--- NOTE | 2022-12-25 15:19 | VDLE_ITS ---
Reason For Study: Pain LLE RIGHT LEFT CFV is compressible, spontaneous, phasic, GSV is normal. competent and demonstrates normal CFV is compressible, spontaneous, phasic, augmentation. competent, and demonstrates normal Procedure augmentation. This is a venous duplex using B-mode, color T/P Trunk is compressible. flow and spectral Doppler. PTV is compressible. Exam performed in department. LT PerV is compressible. A preliminary report was called and/or faxed Lt FV, Lt PopV, and Lt GastrocV are partially to Jd VALENCIA. compressible with bright intraluminal echoes consistent with chronic DVT. VL/Venous Duplex US, Unilateral Interpretation Summary Chronic deep vein thrombosis is noted in the left femoral vein, popliteal vein, gastrocnemius vein. Ordering Physician: Jd Gallego Referring Physician: Yokasta Perry Performed By: Georgia Franco, RDCS, RVT
== END | disposition home or self-care (01) ==
LOC: CVS 15:17
PROVIDERS: PCP Internal Medicine; Referring Provider Physician Assistant; Visit Provider Physician Assistant
DX: M79.605 Pain in left leg (principal)
CPT/HCPCS: 93971

== ENCOUNTER → 2023-01-10 | Outpatient (CLI) | payer MEDICARE, OTHER, SELFPAY ==
--- NOTE | 2023-01-10 14:27 | BI_ITS ---
EXAM: Diagnostic bilateral breast mammogram and diagnostic left breast ultrasound REASON FOR EXAM: Female, 82 years old. Complains of left lump at site of prior excision for 2 weeks duration. PERTINENT HISTORY: Personal history of breast cancer with left lumpectomy in 1993 status post chemoradiation. TECHNIQUE: Digital bilateral breast juan david (3D mammographic acquisition) in the CC and MLO projections. 2-D mediolateral oblique (MLO) and craniocaudad (CC) views of both breasts were obtained. CAD: Full Field Digital Mammography with Computer Added Detection was performed. Real-time bianchi scale and color sonographic images were obtained of the left upper breast in the clinical area of concern COMPARISON: Screening mammogram from 06/25/2018, 05/27/2017. FINDINGS: Mammogram findings: Breast Composition: The breasts are heterogeneously dense, which may obscure small masses. Left lumpectomy postoperative changes appear similar to prior study from 2018 with associated benign-appearing calcifications that can be seen with fat necrosis. There are no suspicious calcifications or suspicious masses in the bilateral breasts. Overall, there has been no significant change since the previous study from 2018. Ultrasound was obtained of the left breast for palpable finding. Ultrasound findings: The left breast upper breast was assessed in the clinical area of concern from the 9:00 to 1:00 positions. Ringlike calcifications within the patient''s palpable area of concern which correspond to the dystrophic calcifications at the lumpectomy site on the mammogram. No suspicious masses or abnormal fluid collections. BI/DIAG MAMM W/CAD, BILAT IMPRESSION: Palpable finding in the left breast correlates with site of prior lumpectomy and associated benign calcifications which can be seen with fat necrosis. No suspicious findings on mammogram or ultrasound within the clinical area of concern. Benign findings on the bilateral diagnostic mammogram which is stable in appearance since 2018. Return to annual follow-up examination recommended. ASSESSMENT CATEGORY: BIRADS Category 2: Benign. A letter regarding these results will be sent to the patient by the facility within 30 days. Recommendation: Return to annual screening mammogram. If clinical concerns for enlarging mass or nipple discharge on physical exam, repeat diagnostic ultrasound and mammogram is recommended. Approximately 10% of breast cancers are not detected by mammography. A normal mammogram should not delay biopsy of a clinically suspicious abnormality. Electronically Signed: Dano Liz DO at 16:51 EDT ,
--- NOTE | 2023-01-10 15:18 | US_ITS ---
EXAM: Diagnostic bilateral breast mammogram and diagnostic left breast ultrasound REASON FOR EXAM: Female, 82 years old. Complains of left lump at site of prior excision for 2 weeks duration. PERTINENT HISTORY: Personal history of breast cancer with left lumpectomy in 1993 status post chemoradiation. TECHNIQUE: Digital bilateral breast juan david (3D mammographic acquisition) in the CC and MLO projections. 2-D mediolateral oblique (MLO) and craniocaudad (CC) views of both breasts were obtained. CAD: Full Field Digital Mammography with Computer Added Detection was performed. Real-time bianchi scale and color sonographic images were obtained of the left upper breast in the clinical area of concern COMPARISON: Screening mammogram from 06/25/2018, 05/27/2017. FINDINGS: Mammogram findings: Breast Composition: The breasts are heterogeneously dense, which may obscure small masses. Left lumpectomy postoperative changes appear similar to prior study from 2018 with associated benign-appearing calcifications that can be seen with fat necrosis. There are no suspicious calcifications or suspicious masses in the bilateral breasts. Overall, there has been no significant change since the previous study from 2018. Ultrasound was obtained of the left breast for palpable finding. Ultrasound findings: The left breast upper breast was assessed in the clinical area of concern from the 9:00 to 1:00 positions. Ringlike calcifications within the patient''s palpable area of concern which correspond to the dystrophic calcifications at the lumpectomy site on the mammogram. No suspicious masses or abnormal fluid collections. US/Breast Limited Unilateral IMPRESSION: Palpable finding in the left breast correlates with site of prior lumpectomy and associated benign calcifications which can be seen with fat necrosis. No suspicious findings on mammogram or ultrasound within the clinical area of concern. Benign findings on the bilateral diagnostic mammogram which is stable in appearance since 2018. Return to annual follow-up examination recommended. ASSESSMENT CATEGORY: BIRADS Category 2: Benign. A letter regarding these results will be sent to the patient by the facility within 30 days. Recommendation: Return to annual screening mammogram. If clinical concerns for enlarging mass or nipple discharge on physical exam, repeat diagnostic ultrasound and mammogram is recommended. Approximately 10% of breast cancers are not detected by mammography. A normal mammogram should not delay biopsy of a clinically suspicious abnormality. Electronically Signed: Dano Liz DO at 16:52 EDT ,
== END | disposition home or self-care (01) ==
PROVIDERS: PCP Internal Medicine; Referring Provider Internal Medicine; Visit Provider Internal Medicine
DX: N63.22 Unspecified lump in the left breast, upper inner quadrant (principal); N63.20 Unspecified lump in the left breast, unspecified quadrant
CPT/HCPCS: 76642; 77062; 77066; G0279

== ENCOUNTER → 2023-01-15 | Outpatient (CLI) | payer MEDICARE, OTHER, SELFPAY ==
[2023-01-15 15:55] LABS: Free T3 1.7 pg/mL (2.18-3.98); Thyroid Stim Hormone (TSH) 1.63 uIU/mL (0.358-3.74)
== END | disposition home or self-care (01) ==
PROVIDERS: PCP Internal Medicine; Referring Provider Internal Medicine; Visit Provider Internal Medicine
DX: E03.9 Hypothyroidism, unspecified (principal)
CPT/HCPCS: 36415; 84439; 84443; 84481

== ENCOUNTER 2023-01-29 11:30 | Outpatient (RCR) | payer MEDICARE, OTHER, SELFPAY ==
--- NOTE | 2022-08-15 12:04 | HP.PTDCSUM ---
It has been my pleasure to treat SHELDON ALAN referred by Dr. Arun Ramos MD, with the diagnosis of Debility for a total of 50 visit(s). Discharge Date: Please see the following information for a summary of their discharge status. Subjective: Pt reports she is doing well today. No new complaints % Improvement: 70 Objective/Function: B LE strength 5/5 throughout. Pt is joining with a gym membership and will be continuing with personal training. Pt is able to ambulate greater than 1000 feet with CGA x 1 and no assistive device. Rx goals achieved Goal 1:: Increase B LE strength x 1 grade to aid with stair negotiation Goal Progress: Goal Met Goal 2:: Pt will be I with gym routine Goal Progress: Goal Met Goal 3:: Pt will be able to ambulate greater than 1000' in order to aid with community ambulation Goal Progress: Goal Met Plan: Discharge to gym routine If there are questions or concerns regarding this patient's physical therapy, please feel free to call me at [phone]. Thank you for the referral of this patient. Sincerely, Gunnar Graves, PT, ATC Balance/Gait/Functional tests - Balance/Special Test Scores Lower Extremity Functional Score: 41
--- NOTE | 2022-10-17 11:38 | HP.PTEVAL2 ---
Patient's Visit Information SHELDON ALAN is a 82 year old F referred to Physical Therapy by Dr. Arun Ramos MD with a diagnosis of Debility/balance deficits. Date of Evaluation: 10/17/22 Physical Therapist: Gunnar Graves, PT, ATC - Visit Plan Frequency: 2x /Week Duration: 4-6 Weeks Plan: B LE strengthening, balance and proprio, core stab ex's, nustep, and HEP - Subjective Subjective: Pt reports she has been dealing with balance and debility concerns for quite a while. Pt notes she had PT in the past for this issue which really helped, but pt reports she has regressed at this time. Pt notes she has to use a rollator at this time secondary to her balance issues. Pt reports she has no stairs at home as she has a ramp in her garage that goes into the house. Pt reports she does have steps to her basement that she never uses. Pt notes she has good sensation in her LE's. Pt reports a major complaint of hers is her LE strength. Pt reports she has to lean against the counters in her kitchen when she is trying to perform kitchen duties secondary to her balance at this time. Pt reports she needs help with bathing at this time secondary to weakness. Pt reports she has no LE weakness, but does report L elbow pain secondary to olecranon bursitis. Pt has been trying to wean off the rollator at home by using a cane. Pt has fallen at least 4 times in the past year with the last one occurring a couple months ago. - Objective Objective: Neuro: B LE sensation is WNL to light touch. ROM: B LE's are WFL when compared bilaterally. Transfers: Pt is able to perform bed transfers and sit to stand transfers I with use of UE's. MMT: B LE's are grossly rated at 4/5 throughout. Gait: Pt is able to ambulate 680 feet with no AD and CGAx1. Pt experienced a few episodes of LOB, mostly with wanting to fall backwards while standing. - Goals Goal 1:: Increase B LE strength x 1 grade to aid with transfers Goal Time Frame: 4-6 Weeks Goal 2:: Pt will be able to ambulate greater than 1000 feet with no LOB to aid with community ambulation Goal Time Frame: 4-6 Weeks Goal 3:: Pt will be able to perform sit to stand transfers without UE's Goal Time Frame: 4-6 Weeks Goal 4:: I with HEP - Rehabilitation Potential Physical Therapy Diagnosis: Pt has B LE weakness, limited ambulation, and difficulty with IADL's secondary to debility Rehabilitation Potential: Good - Anticipated Interventions Patient/Client Instruction: Educate patient on: Condition, Plan of Care For the Purpose of:: To improve self management Therapeutic Exercise to Include: Strength training, Endurance training, Balance training, Gait and locomotor training, Dynamic Lumbar Stabilization For the Purpose of:: To improve muscle performance and motor function, To increase tolerance to activity/condition/position, To improve gait and locomotor functions Thank you for the opportunity to evaluate your patient. For Medicare and Medicare HMO plans, please review the plan of care and approve it. It will need to be FAXED BACK to us at [phone] for Medicare purposes. For Medicare only, by signing this I certify the plan of care. Please let me know if there are questions or concerns regarding this plan of care. Physician Signature: Date:
--- NOTE | 2022-12-11 13:13 | HP.PTREVAL ---
Dr. Yokasta Perry MD, It has been my pleasure to treat SHELDON ALAN over the last 59 visits for Debility. Please see the progress note below for an update on the physical therapy plan of care! Subjective: Pt reports she feels like she has made improvements, but has just recently recovered from COVID and is very fatigued. Pt reports she feels like her balance is doing poorly and she fell just a couple days ago. Objective/Function: B LE's are grossly 4-/5. Gait: Pt able to ambulate 1000 feet but continuously deviated to the R. Pt also experienced a stuble that would have resulted in a fall had PT not been holding gait belt securely. Stairs: Pt is able to negotiate 1 flight of stairs with 2 hand rails. Pt has regressed with presense of covid. Pt would benefit from further PT to focus on gait, balance, strength, and stair negotiation Plan Plan: cont PT focus on gait, balance, strength, and stair negotiation Balance/Gait/Functional tests - Balance/Special Test Scores Lower Extremity Functional Score: 19 Goals Goal 1:: Increase B LE strength x 1 grade to aid with stair negotiation Goal Time Frame: 4-6 Weeks Goal Progress: Progressing Goal 2:: Pt will be I with gym routine Goal Time Frame: 1 Week Goal Progress: Progressing Goal 3:: Pt will be able to ambulate greater than 1000' in order to aid with community ambulation Goal Time Frame: 4-6 Weeks Goal Progress: Goal Met Anticipated Interventions Please do not hesitate to contact me at [phone] by phone or if you have questions or concerns regarding this new plan of care! Sincerely, Gunnar Graves, PT, ATC
--- NOTE | 2022-12-26 15:28 | HP.OTEVAL ---
Patient's Visit Information SHELDON ALAN is a 82 year old F, referred to Occupational Therapy by Dr. Yokasta Perry MD, with a diagnosis of weakness, weakness, vascular dementia. Date of Evaluation: 12/26/22 Occupational Therapist: Jerri Boyd, OTR/Tori, CHT - Subjective This 82 year old female was seen for OT ex with dx of weakness, CRPs, Vascular dementia, other malaise, repeated falls. pt states last 6 months she has noticed difficulty with feeding herself, cutting food, holding a glass and writing. pt states her does help at time. pt eats left handed - ADLs Dressing: Button shirt, Shoes Fasteners: Buttons Eating: Bring food to mouth, Use silverware, Cut food, Drink from glass Comments: helps cut food Kitchen: Peel fruits & vegetables Comments: does all the cooking due to pts vascular dementia Miscellaneous: Write, Shuffle cards, Operate spray bottle Comments: lives in one story condo. pt has caregiver that assist with bathing 1-2x a week and she comes in Friday - Friday 10am -3pm. she assist with cleaning, laundry. has grab bars in bathroom. has elevated toilet seat. rollator has straight cane. railing on bed. adaptive card gonzalez to play cards. long handed bath brush. does grocery shopping and cooking. shoes without lace - ROM Shoulder: right/left 145* Elbow: right/ left WNL Forearm: right/left WNL ROM Comments: shoulders are rolled forward and forward. Kyphosis. pt demo bilateral CMC J OA deformities. pt demo full composite fist of bilateral hands - Strength Medical/Surgery Registered Nurse: right 35# left 20# Lateral Pinch: right 6# left 4# Tripod Pinch: right 4# left 2# Strength Comments: pt demo with left hand weakness this could be contributing to her limited ability to cut food and feed self - Sensation Sensation Comments: pt denies - Quick DASH-Disab of Arm,Shoulder& Hand Quick DASH Score: 43.1800 - Goals Goal:: pt will demo a increase in left girp strength by 10# to increase ind.with ADLs by d/c. pt will demo increase in left lateral and tripod pinch by 4# to increase pts ind.with self feeding Goal:: pt will demo understanding of ad. eq. use to increase pts ind. with ADls and IADLs by dLanac Goal:: pt will states she can perform 80% of self care without assistance from spouse or caregiver by d.c - Rehabilitation General Assessment: pt demo with a left director of knowledge management/pinch weakness limiting pts IND with self care and feeding. pt would benefit from skilled OT services 2x week for 4 weeks to strengthen pt and ed. pt on ad. eq. to increase pts ind. with ADls and IADLs. Pt demo understanding and agree to POC. Rehabilitation Potential: Good - Anticipated Interventions Strengthening, Joint Protection/Energy Conservation, Ergonomic Education, Education re assistive Equipment, Education re Diagnosis, Caregiver Training, Home Program - Visit Plan Frequency: 1-2x /Week Duration: 4 Weeks General Plan: strengthen pinch/director of knowledge management to increase pts ability to cut food. increase pt knowledge of ad. eq. TEXT: Thank you for the opportunity to evaluate your patient. For Medicare and Medicare HMO plans, please review the plan of care and approve it. It will need to be FAXED BACK to us at [phone] for Medicare purposes. Please let me know if there are questions or concerns regarding this plan of care. Physician Signature: Date:
--- NOTE | 2023-01-14 12:09 | HP.OTPEDEV_ITS ---
Patient's Visit Information SHELDON ALAN is a 82 year old F, referred to Occupational Therapy by Dr. Yokasta Perry MD, for . Date of Evaluation: Occupational Therapist: Gwendolyn Torres Assessment/Problems/Goals - Anticipated Interventions Thank you for the opportunity to evaluate your patient. Please let me know if there are questions or concerns regarding this plan of care. Physician Signature: Date:____
--- NOTE | 2023-01-21 14:08 | HP.PTDCSUM ---
It has been my pleasure to treat SHELDON ALAN referred by Dr. Yokasta Perry MD, with the diagnosis of Debility for a total of 68 visit(s). Discharge Date: Please see the following information for a summary of their discharge status. Subjective: I am ready to be done with PT L knee Pain Intensity (Out of 10): 0 % Improvement: 80 Objective/Function: Pt is able to ambulate greater than 1000 feet without difficulty. B LE MMT 4+-5/5 throughout. Pt is now I with gym routine Goal 1:: Increase B LE strength x 1 grade to aid with stair negotiation Goal Progress: Goal Met Goal 2:: Pt will be I with gym routine Goal Progress: Goal Met Goal 3:: Pt will be able to ambulate greater than 1000' in order to aid with community ambulation Goal Progress: Goal Met Plan: DC to HW routine If there are questions or concerns regarding this patient's physical therapy, please feel free to call me at [phone]. Thank you for the referral of this patient. Sincerely, Gunnar Graves, PT, ATC Balance/Gait/Functional tests - Balance/Special Test Scores Lower Extremity Functional Score: 19
== END 2023-01-29 19:00 | disposition home or self-care (01) ==
LOC: OT 11:30
PROVIDERS: PCP Internal Medicine; Referring Provider Family Medicine Geriatric Medicine; Visit Provider Internal Medicine
DX: F03.90 Unspecified dementia, unspecified severity, without behavioral disturbance, psychotic disturbance, mood disturbance, and anxiety (principal); R41.841 Cognitive communication deficit; R53.1 Weakness; R54 Age-related physical debility
CPT/HCPCS: 92507; 97110; 97140; 97161; 97164; 97166; 97530

== ENCOUNTER → 2023-02-06 | Outpatient (CLI) | payer MEDICARE, OTHER, SELFPAY | END | disposition home or self-care (01) | LOC: SL 20:17 | PROVIDERS: PCP Internal Medicine; Referring Provider Internal Medicine Critical Care Medicine; Visit Provider Internal Medicine Critical Care Medicine | DX: G47.33 Obstructive sleep apnea (adult) (pediatric) (principal) | CPT/HCPCS: 95810 ==

== ENCOUNTER 2023-04-02 04:26 | Emergency (ER) | payer MEDICARE, OTHER, SELFPAY ==
[2023-04-02 04:28] VITALS: BP 184/98; PULSE 79; RESP 15; TEMP 36.8; O2SAT 99; BMI 21.2
--- NOTE | 2023-04-02 05:39 | EX.ED.DYSGE1 ---
HPI History of Present Illness Chief Complaint: Rash Informant: patient and spouse/S.O. Narrative Narrative: Patient is an 82-year-old female with past medical history of hyperlipidemia obstructive sleep apnea hypothyroidism and seizure disorder. She was recently stung by bee and placed on a course of Medrol Dosepak. She states following finishing this she then felt pain and irritation in her right anterior thigh with no trauma. She states today she noticed a rash in the region and has concern for an infectious process and therefore comes in for evaluation [facility] Medical History (Updated 04/04/23 @ 02:[address] Isma Bustamante, DO) aquired autoimmune encephalopathy Arthritis Asthma Atherosclerotic heart disease of [place] coronary artery without angina pectoris Back pain Bee sting Bladder disease Cancer Cardiology follow-up encounter Contact with and (suspected) exposure to other viral communicable diseases Contusion of left shoulder Contusion of left wrist Contusion of thoracic wall Dementia Dementia Depression Difficulty swallowing DVT (deep venous thrombosis) Essential hypertension Falls frequently Gastric reflux h/o back surgery Health care maintenance Heart disease High cholesterol History of heart attack History of stress test Hx of echocardiogram Hypertension Hypertension Influenza A Injury of left elbow Injury of left shoulder Left elbow contusion Low iron Lumbar contusion Non-smoker Pain of left lower extremity Partial complex seizures Presence of stent in coronary artery (~1989) Restless legs Scalp contusion Seizures Shortness of breath on exertion TIA (transient ischemic attack) Walker as ambulation aid Home Medications PEP device #1 ea 05/09/21 [Rx Last Taken Unknown] L.acidophil-L.casei-B.bifid-B.longum-FOS 2 billion cell-50 mg capsule (Probiotic Blend) 1 cap PO DAILY Supplement 09/02/21 [History Last Taken 10/05/21] aspirin 81 mg tablet,delayed release (Adult Aspirin Regimen) 81 mg PO DAILY 01/10/22 [History Last Taken Unknown] albuterol sulfate 2.5 mg/3 mL (0.083 %) solution for nebulization 2.5 mg (3 mL) inhalation Q6H PRN Sob &/Or Wheezing #180 mL 02/11/22 [Rx Last Taken Unknown] BD Sry/needle eclips IM 04/25/22 [History Last Taken Unknown] atorvastatin 40 mg tablet 40 mg PO DAILY #90 tabs 06/07/22 [Rx Last Taken Unknown] d-mannose 500 mg capsule 500 mg PO DAILY 06/07/22 [History Last Taken Unknown] famotidine 10 mg tablet 10 mg PO BID 06/07/22 [History Last Taken Unknown] multivitamin 1 tab PO DAILY 06/07/22 [History Last Taken Unknown] apixaban 5 mg tablet (Eliquis) 5 mg PO BID #180 tabs 06/24/22 [Rx Last Taken Unknown] tramadol 50 mg tablet 50 mg PO TID PRN pain 4 days #12 tabs 07/13/22 [Rx Last Taken Unknown] cyanocobalamin (vitamin B-12) 1,000 mcg/mL injection solution (Dodex) 1,000 mcg IM QMONTH 08/15/22 [History Last Taken Unknown] pramipexole 0.5 mg tablet (Mirapex) 0.5 mg PO BID #180 tabs 11/05/22 [Rx Last Taken Unknown] memantine 10 mg tablet 10 mg PO BID Alzheimer's #180 tabs 12/02/22 [Rx Last Taken Unknown] meclizine 25 mg tablet 25 mg PO BID PRN dizziness 01/01/23 [History Last Taken Unknown] gabapentin 100 mg capsule 100 mg PO DAILY PRN restless leg(s) 01/29/23 [History Last Taken Unknown] levothyroxine 50 mcg tablet 25 mcg PO DAILY Thyroid 01/29/23 [History Last Taken Unknown] mirabegron 50 mg tablet,extended release 24 hr (Myrbetriq) 50 mg PO QHS Check with primary doctor 01/29/23 [History Last Taken Unknown] denosumab 60 mg/mL subcutaneous syringe (Prolia) 60 mg subcut [id number] #1 mL 02/05/23 [Rx Last Taken Unknown] vortioxetine 20 mg tablet (Trintellix) 20 mg PO DAILY DEPRESSION #90 tabs 02/21/23 [Rx Last Taken Unknown] lacosamide 100 mg tablet (Vimpat) 100 mg PO BID Check with primary doctor #180 tabs 03/06/23 [Rx Last Taken Unknown] methylprednisolone 4 mg tablets in a dose pack (Medrol (Devan)) See Rx Instructions PO PER PKG DIR #21 tabs 03/24/23 [Rx Last Taken Unknown] acyclovir 800 mg tablet 800 mg PO 5X/DAY 7 days #35 TABLETS 04/02/23 [Rx Last Taken Unknown] Allergy/AdvReac Type Severity Reaction Status Date / Time doxycycline Allergy Mild Vomiting Verified 04/02/23 04:27 oxycodone [From Percocet] Allergy Mild Confusion Verified 04/02/23 04:27 acetaminophen Allergy Other Verified 04/02/23 04:27 [From Darvocet-N] lamotrigine [From Lamictal] Allergy Lip Verified 04/02/23 04:27 Swelling latex Allergy Rash Verified 04/02/23 04:27 moxifloxacin HCl Allergy Other Verified 04/02/23 04:27 [From Avelox] propoxyphene napsylate Allergy Other Verified 04/02/23 04:27 [From Darvocet-N] zolpidem tartrate AdvReac Other Verified 04/02/23 04:27 [From Ambien] Family History Mother CVA (cerebral vascular accident) Arthritis Father Myocardial infarction, Onset Age: 40 Alcoholism Hypertension Sister Anemia Grandmother Bowel disease Osteoporosis Ovarian cancer Surgical History H/O kyphoplasty History of appendectomy History of cardiac catheterization History of carpal tunnel release History of esophagogastroduodenoscopy (EGD) History of hammer toe correction History of hernia surgery History of laryngoscopy History of lumbar laminectomy History of lumpectomy of left breast History of tonsillectomy and adenoidectomy Hx of cataract extraction Hx of colonoscopy Hx of ventral hernia repair Presence of coronary angioplasty implant and graft (~1989) Social History household members: spouse housing: house Smoking Status: Never smoker alcohol intake: current alcohol intake frequency: a few times a week Alcohol type: wine substance use type: does not use caffeine: Yes Type: coffee Number of servings: 1 what type of physical activity do you participate in: other details: PT 3x weekly frequency: 3-4 times per week do you feel safe at home: Yes ROS ROS ED Constitutional Constitutional ED: Denies chills or fever(s) Eyes Eyes: Denies change in vision ENT ENT ED: Denies sore throat Cardiovascular Cardiovascular: Denies chest pain Respiratory/Chest Respiratory/Chest: Denies cough or dyspnea Gastrointestinal Gastrointestinal: Denies abdominal pain, diarrhea, nausea or vomiting Genitourinary Genitourinary ED: Denies dysuria Musculoskeletal Musculoskeletal: Reports other Details: Positive right leg pain Integumentary Reports rash Neurologic Neurologic: Denies headache(s) Hematologic/Lymphatic Hematologic/Lymphatic: Denies easy bleeding or easy bruising EXAM Physical Exam Const Vital Signs: 04/02/23 04:28 Temperature 98.3 F Temperature Source Temporal Pulse Rate 79 Respiratory Rate 15 Blood Pressure 184/98 H Blood Pressure Mean 126 Pulse Ox 99 Positive well nourished and well developed General Appearance ED: well developed HEENT Reports moist mucous membranes HEENT Narrative: No oral lesions no tongue or lip swelling no airway edema or compromise Eyes PERRL and EOMs intact bilaterally General Eye ED: Negative for scleral icterus Neck supple Resp normal respiratory effort and clear to auscultation bilaterally Cardio regular rate and regular rhythm Extremity Extremity Narrative: Right lower extremity is neurovascular intact. In the anterior L2-L3 region of the right thigh there is a erythematous nonblanchable rash with faint/early vesicular change. No involvement of the palms or soles Neuro oriented x3 and CN's II-XII intact bilaterally Sensorium / Orientation: alert Psych mental status grossly normal Skin Skin Narrative: Rash/soft tissue skin change in the right thigh as documented above MDM MDM MDM Narrative Medical decision making narrative: Patient presented with stable vitals and reported a rash along the right anterior thigh. The rash is in a dermatomal region and does have slight vesicular change concerning for early shingles. As the patient was recently on a Medrol Dosepak this would correlate with her symptoms as the Medrol Dosepak lowered her immune response. At this time she has no signs of secondary infection there is no ocular involvement and therefore there is no need for further work-up and patient can be given antivirals and discharged home. History & Record Review Discussion w/independent historian: Patient and Significant other Discharge Plan Triage Chief Complaint: Rash ED Provider: Isma Bustamante Dx/Rx/DC Orders Clinical Impression: Herpes zoster, Hyperlipidemia, Essential hypertension, Debility Instructions: Shingles (Herpes Zoster) Prescriptions: New acyclovir 800 mg tablet 800 mg PO 5X/DAY 7 Days Qty: 35 0RF No Action Myrbetriq 50 mg tablet extended release 24 hr 50 mg PO QHS (DME) PEP device See Rx Instructions .ROUTE .MEDSUPPLY Qty: 1 0RF Rx Instructions: with training aspirin [Adult Aspirin Regimen] 81 mg tablet,delayed release (DR/EC) 81 mg PO DAILY multivitamin Tablet 1 tab PO DAILY famotidine 10 mg tablet 10 mg PO BID d-mannose 500 mg capsule 500 mg PO DAILY atorvastatin 40 mg tablet 40 mg PO DAILY Qty: 90 3RF BD Sry/needle eclips IM Rx Instructions: 3ml #3578 meclizine 25 mg tablet 25 mg PO BID PRN (Reason: dizziness) levothyroxine 50 mcg tablet 25 mcg PO DAILY gabapentin 100 mg capsule 100 mg PO DAILY PRN (Reason: restless leg(s)) methylprednisolone [Medrol (Devan)] 4 mg tablets,dose pack See Rx Instructions PO PER PKG DIR Qty: 21 0RF Rx Instructions: PO PER PKG DIR Probiotic Blend 2 billion cell-50 mg Capsule 1 cap PO DAILY tramadol 50 mg tablet 50 mg PO TID PRN (Reason: pain) 4 Days Qty: 12 0RF albuterol sulfate 2.5 mg /3 mL (0.083 %) solution for nebulization 2.5 mg inhalation Q6H PRN (Reason: Sob &/Or Wheezing) Qty: 180 6RF Eliquis 5 mg tablet 5 mg PO BID Qty: 180 3RF cyanocobalamin (vitamin B-12) [Dodex] 1,000 mcg/mL solution 1,000 mcg IM QMONTH pramipexole [Mirapex] 0.5 mg tablet 0.5 mg PO BID Qty: 180 3RF memantine 10 mg tablet 10 mg PO BID Qty: 180 3RF Prolia 60 mg/mL syringe 60 mg subcut [id number] Qty: 1 0RF Trintellix 20 mg tablet 20 mg PO DAILY Qty: 90 3RF lacosamide [Vimpat] 100 mg tablet 100 mg PO BID Qty: 180 3RF Primary Care Provider: Yokasta Perry Referrals: Yokasta Perry MD [Primary Care Provider] - Disposition Disposition: Home, Self Care Discharge Date/Time: 04/02/23 05:51
== END 2023-04-02 05:51 | disposition home or self-care (01) ==
PROVIDERS: Emergency Provider Emergency Medicine; PCP Internal Medicine; Visit Provider Emergency Medicine
DX: B02.9 Zoster without complications (principal); G40.909 Epilepsy, unspecified, not intractable, without status epilepticus; I10 Essential (primary) hypertension; I25.10 Atherosclerotic heart disease of native coronary artery without angina pectoris; R53.81 Other malaise; E78.00 Pure hypercholesterolemia, unspecified; Z86.73 Personal history of transient ischemic attack (TIA), and cerebral 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; Z95.5 Presence of coronary angioplasty implant and graft; Z79.82 Long term (current) use of aspirin; J45.909 Unspecified asthma, uncomplicated; Z79.899 Other long term (current) drug therapy; K21.9 Gastro-esophageal reflux disease without esophagitis; Z79.01 Long term (current) use of anticoagulants; Z86.718 Personal history of other venous thrombosis and embolism; G25.81 Restless legs syndrome; F32.A Depression, unspecified; Z90.49 Acquired absence of other specified parts of digestive tract; Z98.49 Cataract extraction status, unspecified eye
CPT/HCPCS: 99282

== ENCOUNTER → 2023-04-22 | Outpatient (CLI) | payer MEDICARE, OTHER, SELFPAY ==
[2023-04-22 10:33] LABS: Free T3 1.9 pg/mL (2.18-3.98); T4 Free Direct 1.33 ng/dL (0.76-1.46); Thyroid Stim Hormone (TSH) 3.33 uIU/mL (0.358-3.74)
== END | disposition home or self-care (01) ==
LOC: LAB 08:42
PROVIDERS: PCP Internal Medicine; Referring Provider Internal Medicine; Visit Provider Internal Medicine
DX: E03.9 Hypothyroidism, unspecified (principal)
CPT/HCPCS: 36415; 84439; 84443; 84481

== ENCOUNTER 2023-05-06 14:30 | Outpatient (RCR) | payer MEDICARE, OTHER, SELFPAY ==
--- NOTE | 2023-02-12 13:48 | HP.OTDCSUM_ITS ---
Discharge Summary D/C Summary: It has been my pleasure to treat SHELDON ALAN under orders from Dr. Yokasta Perry MD, for the diagnosis of Debility for a total of 8 visit(s). Please see the following information for a summary of their discharge status. Overall Improvement % Improvement: 15 Objective Objective/Function: right commercial pest control technician strength 45# left 30# left lateral pinch 4# and tripod pinch 6# pt has not made gains in left commercial pest control technician strength and at this time is d/c. with HEP. pt has hx of left intra-articular fx of left distal radius as well as left thumb instability this may be limiting pts strength as her commercial pest control technician strength is same from 2021 - pt states her also feels her weakness if from her wrist fx. Plan Plan: D/C with HEP D/C Information Discharge Comments: pt has been seen for 8 OT sessions to increase pts FMS and strength of left hand- pt has not made progress at this time and is d/c with HEP. d/c sentence: If there are questions or concerns regarding this patient's occupational therapy, please fell free to call me at [phone]. Thank you for the referral of this patient. Sincerely, Jerri Boyd, OTR/L, CHT
--- NOTE | 2023-05-06 15:18 | HP.SP.DC ---
ST Discharge Summary Discharged: Discharge: Pt was seen for initial speech/language/cognitive evaluation at [facility] on 04/18/22 s/p difficulty completing ADL's. Pt attended 29 additional sessions following initial evaluation to target problem solving/reasoning, memory, executive functioning, completing ADL's and safety awareness. Following re-evaluation of Pt?s current level of cognitive function, self-report, and caregiver report, Pt deemed appropriate for d/c from speech therapy at this time. Pt provided w/home carry over activities to continue targeting complex executive functioning tasks. Pt discharged from speech therapy caseload on this date, 05/06/23. Thank you for allowing me to participate in the care of your Pt. Will reevaluate at Pt?s request following script from physician.
== END 2023-05-06 19:00 | disposition home or self-care (01) ==
LOC: SP 14:30
PROVIDERS: PCP Internal Medicine; Referring Provider Internal Medicine; Visit Provider Internal Medicine
DX: R53.1 Weakness (principal); G90.50 Complex regional pain syndrome I, unspecified; F01.50 Vascular dementia, unspecified severity, without behavioral disturbance, psychotic disturbance, mood disturbance, and anxiety; R53.81 Other malaise; R29.6 Repeated falls; R41.841 Cognitive communication deficit
CPT/HCPCS: 92507; 97129; 97130; 97530

== ENCOUNTER → 2023-05-29 | Outpatient (CLI) | payer MEDICARE, OTHER, SELFPAY ==
--- NOTE | 2023-05-29 07:02 | ECHOD_ITS ---
Reason For Study: Dyspnea Procedure This was a 2D Doppler, Color Flow transthoracic echocardiogram. Exam performed in department. Left Ventricle Normal LV size. Left ventricular systolic function is normal. The estimated ejection fraction is 65 %. Stage 1 diastolic dysfunction. No regional wall motion abnormalities noted. Right Ventricle Normal RV size. Normal systolic function. Atria Normal left atrium. Normal right atrium. Mitral Valve There is mild to moderate mitral annular calcification. Systolic anterior motion of the mitral valve. Mild (1+) eccentric mitral valve insufficiency. Tricuspid Valve Normal tricuspid valve. Mild (1+) tricuspid valve insufficiency. Pulmonary artery systolic pressure is 40 mmHg. Aortic Valve Normal aortic valve. Trisinus/trileaflet aortic valve. Pulmonic Valve Normal pulmonic valve. Great Vessels Normal aortic root. The pulmonary artery is normal size. Normal inferior vena cava. Pericardium/Pleural No pericardial effusion. MMode/2D Measurements & Calculations LVIDd: 4.3 cm IVSd: 0.86 cm Ao root diam: 3.3 cm LVIDs: 2.7 cm LVPWd: 0.82 cm LA dimension: 3.5 cm RVDd: 4.2 cm FS: 38.3 % LAV(MOD-bp): 54.7 ml LVAd ap4: 19.5 cm2 SV(MOD-sp4): 31.2 ml LAV(MOD-sp2): 43.1 ml LVLd ap4: 6.1 cm LAV(MOD-sp4): 59.0 ml EDV(MOD-sp4): 48.9 ml EDV(sp4-el): 53.0 ml LVAs ap4: 10.7 cm2 LVLs ap4: 5.4 cm ESV(MOD-sp4): 17.7 ml ESV(sp4-el): 18.0 ml EF(MOD-sp4): 63.7 % EF(sp4-el): 66.1 % SV(sp4-el): 35.1 ml LA A4 area: 20.6 cm2 RA A4 area: 15.4 cm2 TAPSE: 1.5 cm Time Measurements MV dec time: 0.17 sec Doppler Measurements & Calculations MV E max ludwin: 87.3 cm/sec Lat Peak E' Ludwin: 7.3 cm/sec Med Peak E' Ludwin: 7.6 cm/sec MV A max ludwin: 99.1 cm/sec E/E' lat: 12.0 E/E' med: 11.4 MV E/A: 0.88 MV V2 max: 108.1 cm/sec MV P1/2t max ludwin: 111.2 cm/sec Ao V2 max: 113.7 cm/sec MV max P.7 mmHg MV P1/2t: 63.2 msec Ao max P.2 mmHg MV V2 mean: 63.3 cm/sec MV dec slope: 515.1 cm/sec2 Ao V2 mean: 86.0 cm/sec MV mean P.9 mmHg Ao mean P.3 mmHg MV V2 VTI: 28.1 cm MVA(P1/2t): 3.5 cm2 Ao V2 VTI: 30.3 cm AV (velocity ratio): 0.93 LV V1 max: 111.0 cm/sec MR max ludwin: 648.6 cm/sec PA V2 max: 103.6 cm/sec LV V1 max P.9 mmHg MR max P.2 mmHg LV V1 mean P.8 mmHg MR mean ludwin: 547.8 cm/sec LV V1 mean: 78.5 cm/sec MR mean P.2 mmHg LV V1 VTI: 28.0 cm MR VTI: 253.6 cm PI dec slope: 172.2 cm/sec2 TR max ludwin: 307.4 cm/sec TR max P.8 mmHg ECHO/Echo Complete Interpretation Summary Normal LV size. Left ventricular systolic function is normal. The estimated ejection fraction is 65 %. Systolic anterior motion of the mitral valve. Mild (1+) eccentric mitral valve insufficiency. Stage 1 diastolic dysfunction. Ordering Physician: Jerri Whitfield Referring Physician: Yokasta Perry M.D. Performed By: Andrei Cavaozs RCS
--- NOTE | 2023-05-29 16:12 | STRESSREP_ITS ---
Stress Test Report Date: 05/29/2023 Procedure: Pharmacologic stress nuclear imaging study Indications: Coronary artery disease/dyspnea on exertion Consent: Per the patient Procedure: The patient underwent pharmacologic (Regadenoson 0.4mg ) evaluation with a peak heart rate of 93 beats per minute (66%predicted maximal heart rate) and a peak blood pressure of 128/64 mmHg. The baseline ECG demonstrated sinus rhythm with nonspecific ST changes. The peak pharmacologic ECG demonstrated no diagnostic ischemic change. There were no cardiac dysrhythmias pretest, during pharmacologic infusion, or recovery. There was no complaint of chest discomfort during pharmacologic infusion or recovery. The patient was injected with 10.9 millicuries of technetium 99m Cardiolite and subsequently rest SPECT Cardiolite nuclear imaging was obtained in the horizontal long, vertical long, and short axis views. The patient underwent pharmacologic (Regadenoson) evaluation. The patient was injected with 32.5 millicuries of technetium 99m Cardiolite and subsequently stress SPECT Cardiolite nuclear imaging was obtained in the horizontal long, vertical long, a nd short axis views. A gated Cardiolite study at peak stress was obtained. The examination was stopped secondary to completion of protocol. Rest and stress SPECT Cardiolite nuclear imaging status post realignment, normalization, and attenuation correction demonstrate reduced tracer uptake at the apex both at rest as well as post pharmacological stress. Normal motion. Likely attenuation artifact. There is end systolic thickening and brightening. The gated Cardiolite study demonstrates myocardial thickening and inward wall motion. The reported LVEF is 89%. Impression: 1. Pharmacologic (Regadenoson) evaluation 2. Peak pharmacologic ECG with no diagnostic ischemic changes. 3. There were no cardiac dysrhythmias pretest, during pharmacologic infusion, or recovery. 5. Rest and stress SPECT Cardiolite nuclear imaging demonstrate relative uniform tracer uptake and myocardial perfusion appearing within normal limits. 6. The gated Cardiolite study reports an LVEF of 89%. This note was generated with [employer] software. It may contain incorrect words, spelling, and punctuation that were not noted in checking the note before signing.
== END | disposition home or self-care (01) ==
LOC: CVS 07:02
PROVIDERS: PCP Internal Medicine; Referring Provider Physician Assistant Medical; Visit Provider Physician Assistant Medical
DX: R60.0 Localized edema (principal); R06.09 Other forms of dyspnea; R06.02 Shortness of breath; I25.10 Atherosclerotic heart disease of native coronary artery without angina pectoris
CPT/HCPCS: 78452; 93017; 93306; A9500; A4216; J0153; J2785

== ENCOUNTER → 2023-06-04 | Outpatient (CLI) | payer MEDICARE, OTHER, SELFPAY ==
--- NOTE | 2023-06-04 13:31 | MRI_ITS ---
EXAM: MR HEAD WITHOUT INTRAVENOUS CONTRAST CLINICAL INDICATION: Unexplained loss of left peripheral vision. TECHNIQUE: Multiplanar and multisequence MR images of the brain were obtained without intravenous contrast. COMPARISON: MRI brain without contrast 02/11/2021. FINDINGS: BRAIN AND EXTRA-AXIAL SPACES: Multiple T2 FLAIR hyperintensity foci in the white matter of both cerebral hemispheres are chronic white matter ischemic changes. Moderate cerebral atrophy, more central than cortical accounting for disproportionate dilatation of the third and lateral ventricles and moderate loss of central white matter volume. No intra- or extra-axial hemorrhage. No intracranial mass or mass effect. Posterior fossa structures are unremarkable. No hydrocephalus. Basal cisterns are patent. No diffusion restriction to suspect acute or subacute ischemic infarct throughout the brain parenchyma. No remote cortical-based ischemic infarct. SELLA: Unremarkable. Normal sella turcica, pituitary gland, infundibular stalk, optic chiasm and hypothalamus. AUDITORY SYSTEM: Unremarkable. The internal auditory canals are patent. BONES/JOINTS: Unremarkable. No discrete lytic or blastic abnormalities. SINUSES: Unremarkable as visualized. Clear. MASTOID AIR CELLS: Unremarkable as visualized. Clear. ORBITS: Unremarkable as visualized. Both globes, extraocular muscles, optic nerves and retrobulbar fat appear unremarkable. VASCULATURE: Unremarkable as visualized. Normal flow voids in the major intracranial circulation. MRI/Brain without Contrast IMPRESSION: 1. No MRI evidence of acute or subacute ischemic infarct or acute intracranial abnormality. 2. Progression of chronic white matter ischemic changes in both cerebral hemispheres. 3. No significant interval change when compared to 02/11/2021. Electronically Signed: Cal Shea MD at 15:57 EDT ,
== END | disposition home or self-care (01) ==
LOC: MRI 13:16
PROVIDERS: PCP Internal Medicine; Referring Provider Ophthalmology; Visit Provider Ophthalmology
DX: H54.7 Unspecified visual loss (principal)
CPT/HCPCS: 70551

== ENCOUNTER → 2023-07-15 | Outpatient (CLI) | payer MEDICARE, OTHER, SELFPAY ==
--- NOTE | 2023-07-15 14:19 | US_ITS ---
STUDY: ULTRASOUND BREAST - LEFT REASON FOR EXAM: Female, 82 years old. Palpable lump left breast. TECHNIQUE: Axial and longitudinal images of the LEFT breast were performed with a high resolution ultrasound transducer. # OF IMAGES: 32 COMPARISON: Comparison is made with prior sonogram of the left breast dated January 10, 2023. FINDINGS: LEFT Breast: The upper portion of the left breast was examined with ultrasound. Stable appearance of the postoperative changes at the lumpectomy site. Benign appearing calcifications are once again seen suggestive of fat necrosis. US/Breast Limited Unilateral IMPRESSION: Stable examination. ASSESSMENT CATEGORY: BIRADS Category 2: Benign. A letter regarding these results will be sent to the patient by the facility within 30 days. Electronically Signed: Sam Mac MD at 11:41 EST ,
== END | disposition home or self-care (01) ==
LOC: OPUS 14:18
PROVIDERS: PCP Internal Medicine; Referring Provider Surgery; Visit Provider Surgery
DX: N63.21 Unspecified lump in the left breast, upper outer quadrant (principal)
CPT/HCPCS: 76642

== ENCOUNTER 2023-08-14 10:05 | Outpatient (RCR) | payer MEDICARE, OTHER, SELFPAY ==
--- NOTE | 2023-08-19 11:23 | HP.PTEVAL ---
Patient's Visit Information Visit Information Visit Information: SHELDON ALAN is a 82 year old F referred to Physical Therapy by Dr. 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 Date of Evaluation: 08/14/23 Physical Therapist: Aquiles Fang DPT Visit Plan Frequency: 1x/Week Duration: 4 Weeks Plan: Pt. assessed for need for custom lumbar bracing. I agree with the need. I will reach out to physician about the level of stability needed. She needs to be able to self don and doff as well. Subjective Subjective: Pt. is here today for her initial evaluation with need for back support/lumbar spine bracing with need for custom fitting. Dx: spondylosis without myelopathy and Intervertebral disc generation of lumbosacral region. Pt. reports having pain and weakness in her back for years, but has been progressively getting more difficult. Pt. c/o a constant pain in her back, but more of her issue with with fatigue in evening and being able hold her self upright. Pt. has been working with local personal injury law specialist on core strengthening and multifidus strengthening. Pt. walks with a rollator and has severe scoliosis of her thoracic spine and severe thoracic kyphosis. Pt. has had a [facility] lumbar stability brace and did well with this, but lost it during a move. She is now seeking something more custom due to her spinal positioning. Pt. reports having to brace her self up to eat. She will put a pillow between her chest and the table to prop her self up. She reports that her back gets so tired that she can barely lift her self up. Pt. is hopeful to get a brace to help her maintain erect posture throughout the day. Pain Lumbar spine: Pain Intensity (Out of 10): 3 Pain Intensity Range: 3 Objective Objective: POSTURE: PT. has marked thoracic kyphosis and scoliosis. Pt. able to improve with VCing, but still has marked limitations. PALPATION: Pt. has tenderness throughout B lumbar and thoracic erector spinae. NEURO: normal throughout. ROM: Lumbar spine: flexion min loss NE, ext max loss, rotation min/mod loss bilat. SB mod loss bilat. Pt. reports mostly stiffness throughout spine, but not much increase in symptoms with ROM testing. MMT: Pt. has 4/5 strength throughout BLEs, poor core strength, poor lumbar extension strength. GAIT: Pt. ambulates with FWW with flexed posture throughout. Pt. tends to flex more and gait progresses. Balance/Special Test Scores Oswestry Low Back Score: 11 Goals Goal 1:: STG: pt. to be assessed for need for lumbar bracing. Goal Time Frame: 1 Week Goal 2:: LTG: Pt. to tolerate use of bracing allowing for progressive wearing as needed. Goal Time Frame: 4-6 Weeks Goal 3:: LTG: Pt. to complete ADLs and IADLS with brace on allowing for increased stability and safety. Goal Time Frame: 4-6 Weeks Rehabilitation Potential Physical Therapy Diagnosis: Pt. 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 Pt. has marked flexed posture and lumbar extensor weakness. She has difficulty maintain upright posture, worse as the day progressed. I agree with the need for some sort of brace for stability to allow for increased upright posture and ability to complete ADLs and eating. Rehabilitation Potential: Excellent Anticipated Interventions Patient/Client Instruction: Educate patient on: Condition, Plan of Care, Risk Factors and Benefits of Fitness Program For the Purpose of:: To improve health and function, To foster healthy habits, To improve decision making, To facilitate caregiver knowledge, To improve self management, To prevent re-injury and To improve ability to perform tasks related to life management Orthotics: Brace For the Purpose of:: To decrease pain, To improve ability to perform ADL's and To improve ability of physical actions for home/community/work/leisure Text: Thank you for the opportunity to evaluate your patient. For Medicare and Medicare HMO plans, please review the plan of care and approve it. It will need to be FAXED BACK to us at [phone] for Medicare purposes. For Medicare only, by signing this I certify the plan of care. Please let me know if there are questions or concerns regarding this plan of care. Physician Signature: Date:
--- NOTE | 2023-11-20 08:31 | HP.PTDCNRP_ITS ---
Patient Information Patient Information: SHELDON ALAN was seen in my office for initial evaluation on 08/14/23. The following Plan of Care was established for this patient: POC Established Initial Frequency: 1x/Week Initial Duration: 4 Weeks Anticipated Interventions Patient/Client Instruction: Educate patient on: Condition, Plan of Care, Risk Factors and Benefits of Fitness Program For the Purpose of:: To improve health and function, To foster healthy habits, To improve decision making, To facilitate caregiver knowledge, To improve self management, To prevent re-injury and To improve ability to perform tasks related to life management Orthotics: Brace For the Purpose of:: To decrease pain, To improve ability to perform ADL's and To improve ability of physical actions for home/community/work/leisure Last Seen Last Seen: This patient was last seen in our office 08/14/23. Pertinent comments regarding their Physical therapy will appear below: Pt. was evaluated for the need of a lumbar-thoracic brace. She was in need and I referred her to [employer] [employer] of fitting. I did talk with her and was fitting for a brace. I will DC her from PT at this point in time At this point I will be discontinuing this patient from physical therapy. I would be happy to see this patient again in the future if found appropriate by the physician. Thank you! Aquiles Fang, DPT Balance/Gait/Functional tests Balance/Special Test Scores Oswestry Low Back Score: 11
== END 2023-08-14 19:00 | disposition home or self-care (01) ==
LOC: PT 10:05
PROVIDERS: PCP Internal Medicine; Referring Provider Anesthesiology Pain Medicine; Visit Provider Anesthesiology Pain Medicine
DX: M47.817 Spondylosis without myelopathy or radiculopathy, lumbosacral region (principal); M51.37 Other intervertebral disc degeneration, lumbosacral region
CPT/HCPCS: 97161

== ENCOUNTER → 2023-10-14 | Outpatient (CLI) | payer MEDICARE, OTHER, SELFPAY ==
[2023-10-14 17:16] LABS: Free T3 1.8 pg/mL (2.18-3.98); Thyroid Stim Hormone (TSH) 1.27 uIU/mL (0.358-3.74)
--- OUTSIDE RECORDS SUMMARY | 2023-10-14 23:54 | XMS RPT_ITS ---
Author Name Auto Generated Organization [facility] Care Team Providers Care Sales Analyst Name Role Phone LAISHA LIZARRAGA Attending Unavailable CHEMA MAS Primary Care Unavailable CHEMA MAS Primary Care Unavailable STEPHANIE GARCIA Referring Unavailable HUMZA CAMEJO Attending Unavailable CHEMA MAS Primary Care Unavailable LAISHA LIZARRAGA Attending Unavailable LAISHA LIZARRAGA Referring Unavailable CHEMA MAS Primary Care Unavailable LAISHA LIZARRAGA Attending Unavailable LAISHA LIZARRAGA Referring Unavailable CHEMA MAS Primary Care Unavailable PROBLEMS DATE TYPE CONDITION / CODE [facility] Active 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) / F03.90(ICD-10) NA Active [facility] PROCEDURES No Procedure Records Found RESULTS PROGRESS Observed: 07/28/2023 12:38 PM Status: COMPLETED Source: [facility] REPOSITORY O ID: [id number] Author: Humza Camejo MD Service: ? Author Type: Physician Type: Progress Notes Filed: 07/28/2023 1:43 PM Note Text: New Tmax: <21 per outside; Pachy: 550, 572 Lasers and Surgeries: OD: CEIOL OS: CEIOL Ocular Medication Intol and Non-efficacy: Now on no glaucoma drops Next on latan 08/18 -HVF - OD OS -OCT 07/2023 OD sup and inf wedge OS sup wedge # Glaucoma suspect - MRI brain reportedly fine - OCT retinal nerve fiber layer and exam with thinning that could represent glaucoma - start latan 08/18 - follow 3 months, intraocular pressure, baseline visual field (may be difficult due to dementia) # Pseudophakia both eyes - stable # horizontal diplopia - exotropia on cover/uncover - refer to parking line painter for prism # 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 I have seen and examined Lauren Alcaraz. I have discussed the case and the management of this patient's care with the Resident/Fellow, if applicable. I also have reviewed and agree with the assessment and plan as stated above and agree with all of its relevant components. Humza Camejo MD CNOV Observed: 06/16/2023 1:45 PM Status: COMPLETED Source: [facility] REPOSITORY Office Visit ([facility]) LAUREN ALCARAZ ([id number]) 1940 F Date Time Provider Department 06/16/23 1:45 PM LAISHA LIZARRAGA During your visit today, we recorded the following information about you: Pulse Blood pressure Weight 81/minute 118/72 48.1 kg LianeBrandan 06/16/2023 1:42 PM Signed Lauren Alcaraz is a 82 year old year old woman accompanied by: spouse. Do you have any changes or new concerns you would like to address at the visit today? No concerns at this time. Vital Signs: BP 118/72 Pulse 81 Wt 48.1 kg (106 lb) LMP (LMP Unknown) BMI 21.41 kg/m? Laisha Lizarraga, MANUFACTURING SPECIALIST.VENDING MACHINE ATTENDANT 06/16/2023 3:22 PM Signed Lauren Alcaraz 1940 [address] [facility] [address] [facility] [address] June 16, 2023 [facility] FOLLOW-UP NOTE Accompanied by: spouse Misael MERCY Lauren Alcaraz is a pleasant 82 year old female seen today for a follow up visit. 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 CSF AD biomarkers negative. 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) Gait instability (R29.6) Multiple falls (R53.81) Physical deconditioning (F32.A) Depression, unspecified depression type (F41.9) Anxiety (R42) Dizziness (R26.89) Imbalance Patient was last seen on 03/14/23, at which time: -- completed repeat MRI showing significant whole brain volume loss at 2nd percentile and hippocampal volumes at 10th, with stable chronic WM changes since 2019, no lesions or other changes that would be expected to be contributing to dizziness -- UI controlled better with Myrbetriq -- not requiring a wheelchair lately -- had recent sleep study and told she should use CPAP but declined use We planned to try to get access to PSG results, start low-dose donepezil 2.5mg with plan for gradual up-titration, continue working w/ PT/therapy Today, Lauren and her spouse Misael returns for a routine follow up visit. She is reporting more trouble w/ her L peripheral vision lately, which she has seen her Truck Caterer about and who has ordered her a peripheral vision test (completed) and a repeat Brain MRI which did not reportedly show any significant changes from the scan we performed in Nov 2022. This image is not available for personal review She is not having siginficant L peripheral vision issues symptomatically She does have diplopia intermittently, but tends to happen in the afternoons, not when she is very tired. It doesn't happen all the time Sometimes she will blink her eyes and this resolves it, but it doesn't work every time. She also feels that her fine motor abilities are not improving-- she has trembling when holding a pen/pencil or a utensil and cannot write very legibly. She does not have a rest tremor She hasn't needed to use any adaptive devices for writing/utensils. She has been tolerating donepezil 5mg once daily (in the morning). She does report some vivid dreams (not nightmares), they do not bother her. She does feel she's getting benefit from it-- feels she is sharper and can catch things easier (Cognitively) Other interval history: Falls: negative Sleep: described as normal, feels rested upon waking. She feels she doesn't need to sleep as much--- may go to bed later (1-2am) and then sleep in until 8-9am ADL's requires assistance with the following ADL's: using household appliances, taking medications, grocery shopping, house cleaning, driving, and finances Driving?: No Vital Signs: BP 118/72 Pulse 81 Wt 48.1 kg (106 lb) LMP (LMP Unknown) BMI 21.41 kg/m? General Medical Exam: General: Well-nourished appearing, NAD. Awake, alert. HEENT: Normocephalic/atraumatic. Neurological Exam: Cognition: alert and cooperative MoCA: Not assessed today (Previous score: 02/14 in 10/2021.) Orientation: alert Appearance: normal grooming Eye contact: normal Facial expression: appropriate Psychomotor: normal Speech/Language: unremarkable -can name, repeat with no dysarthria Affect: pleasant PDW:no SI:no Self-injurious behavior:no Emotional state: calm, cooperative Thought Process: logical Thought Content: appropriate Hallucinations: none Judgment: intact Insight: good Diagnostic Results: MRI Brain from 12/04/22 IMPRESSION: * No evidence of an acute intracranial process or intracranial mass. * Marked volume loss with whole brain volumes at the 2nd percentile for age-matched controls * Hippocampal volumes at the 10th percentile when compared to age matched normal controls by quantitative analysis. * Moderate white matter disease which is nonspecific but likely reflective of chronic microvascular ischemia. * No evidence of parenchymal microhemorrhages by MRI. EEG from 2007 DATE: June 15, 2008 NO: [id number] Indication: Question of seizure Medications: None given Recording conditions: Presumably routine EEG. This is a routine EEG performed during the awake, drowsy and sleep states. Length of study: 23 minutes and 52 seconds EEG activity: The predominant posterior resting frequency is a rhythmic, symmetric 8.0 to 9.0 Hertz, 20 to 40 microvolt rhythm with reactivity to eye opening and eye closure demonstrated. Occasional sharp waves are noted throughout the left temporal recording representing less than 10% of activity. This is a normal variant for age. Generalized background is theta slowing consistent with drowsiness is demonstrated. Vertex transients, K-complexes and sleep spindles further characterize early stages of sleep. Photic stimulation is performed without appreciable change in the background rhythm. Hyperventilation was performed with good patient effort demonstrating symmetrically increased amplitudes and slowing. No EKG changes are noted. Impression: Normal routine EEG in the awake, drowsy and sleep states for age. EEG from 2016 IMPRESSION: Abnormal EEG capturing wakefulness to stage II sleep due to: 1. Independent left frontotemporal greater than right frontotemporal sharp waves in sleep. 2. Slow background in wakefulness CLINICAL CORRELATION: The presence of left frontotemporal greater than right frontotemporal sharp waves in sleep suggests a partial mechanism of epilepsy in a person with seizures. Slow background activity correlates with bilateral hemispheric dysfunction and may be seen in degenerative diseases, metabolic and toxic encephalopathies, head injuries. EEG Long from 11/20/20 Impression: This EEG shows evidence of cortical dysfunction maximum in the left temporal region. There is also evidence of a moderate diffuse encephalopathy. No definite epileptiform discharges or EEG seizures were seen during this recording. 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 Blanco says about the Brain MRI results and the peripheral vision testing- but I am not reading of any brain changes that would account for the vision changes- and I am not picking up on any visual field deficit today. Continue the donepezil at 5mg once daily for now 3. Do make use of a LifeAlert or alarm system that you can use if you need help or have a fall late at night before you go to bed. 4. Return to OT after the new year- to work on fine motor abilities Follow up in 4-6 months I spent a total of 40 minutes on the date of service which included [id number] patient care and counseling and educating the patient/spouse. Laisha Lizarraga, MSN, BUSSER-C, CNRN CC: 1. No primary care provider on file., (fax) None Laisha Lizarraga, ROSMERY.[facility] 06/16/2023 2:32 PM Signed See what Dr. Blacno says about the Brain MRI results and the peripheral vision testing- but I am not reading of any brain changes that would account for the vision changes- and I am not picking up on any visual field deficit today. Continue the donepezil at 5mg once daily for now 3. Do make use of a LifeAlert or alarm system that you can use if you need help or have a fall late at night before you go to bed. 4. Return to OT after the new year- to work on fine motor abilities Follow up in 4-6 months Allergies As of Date: 06/16/2023 Noted Allergy Reaction PROPOXYPHENE N-ACETAMINOPHEN 02/08/2006 14 - Other: See Comments Comments: hallucinations ADHESIVE TAPE-SILICONES 02/23/2015 16 - Unknown Comments: Other reaction(s): Other (comments) Not sure which type of tape but red skin. DOXYCYCLINE 08/09/2020 11 - Vomiting LAMICTAL (LAMOTRIGINE) 08/09/2020 7 - Swelling Comments: Lips swelling LATEX 02/14/2021 2 - Rash PERCOCET (OXYCODONE-ACETAMINOPHEN)08/09/2020 1 - Mental Status Change PROPOXYPHENE 11/07/2008 1 - Mental Status Change 14 - Other: See Comments Comments: Hallucinations Includes Darvocet ADHESIVE 02/23/2015 14 - Other: See Comments Comments: Not sure which type of tape but red skin. DICLOFENAC SODIUM 07/17/2015 14 - Other: See Comments Comments: Topical gel resulted in hand swelling. 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 - gabapentin (NEURONTIN) 100 mg capsule as needed. - traMADol (ULTRAM) 50 mg tablet Take 50 mg by mouth as needed. - famotidine (PEPCID) 10 mg tablet Take 10 mg by mouth twice daily. - DODEX 1,000 mcg/mL inject 1 milliliter ( 1000 MCG ) intramuscularly Every Month - ammonium lactate (LAC-HYDRIN) 12 % lotion - BD ECLIPSE LUER-BOZENA 3 mL 23 x 1 - MULTIVITAMIN ORAL Take by mouth once daily. - albuterol (PROVENTIL) 2.5 mg /3 mL (0.083 %) nebulizer solution as needed. - Lactobacillus acidophilus (PROBIOTIC) 10 billion cell cap once daily. - pramipexole (MIRAPEX) 0.5 mg tablet Take 0.5 mg by mouth three times daily. - vortioxetine (TRINTELLIX) 20 mg tablet Take 20 mg by mouth once daily. - atorvastatin (LIPITOR) 40 mg tablet Take 40 mg by mouth once daily. - ELIQUIS 5 mg tab(s) BID - levothyroxine (SYNTHROID) 25 mcg tablet Take 25 mcg by mouth once daily. - memantine (NAMENDA) 10 mg tablet - MYRBETRIQ 50 mg Tb24 Taking 2 tabs once daily - lacosamide (VIMPAT) 100 mg tab Take 1 tablet by mouth twice daily for 180 days. - nitroglycerin sublingual (NITROQUICK) 0.4 mg SL tablet as needed. - aspirin, enteric coated (ASPIRIN, ENTERIC COATED) 81 mg EC tablet Take 81 mg by mouth once daily. - tolterodine ER (DETROL LA) 4 mg 24 hr capsule Take 4 mg by mouth once daily. - denosumab (PROLIA SUBCUTANEOUS) Inject 1 Dose subcutaneously once every 6 months. Last injection November 2020 Problem List As Of Date 06/16/2023 Noted Resolved 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) [*12/06/2020 History of complex partial epilepsy [Z86.69] 12/06/2020 Abnormality of gait [R26.9] 12/06/2020 Multiple falls [R29.6] 12/06/2020 Weakness [R53.1] 04/13/2021 Other instructions from your clinician: See what Dr. Blanco says about the Brain MRI results and the peripheral vision testing- but I am not reading of any brain changes that would account for the vision changes- and I am not picking up on any visual field deficit today. Continue the donepezil at 5mg once daily for now 3. Do make use of a LifeAlert or alarm system that you can use if you need help or have a fall late at night before you go to bed. 4. Return to OT after the new year- to work on fine motor abilities Follow up in 4-6 months Visit Notes: >> Brandan Beverly Jun 16, 2023 1:42 PM Status: Signed Laurengaro Alcaraz is a 82 year old year old woman accompanied by: spouse. Do you have any changes or new concerns you would like to address at the visit today? No concerns at this time. Vital Signs: BP 118/72 Pulse 81 Wt 48.1 kg (106 lb) LMP (LMP Unknown) BMI 21.41 kg/m? Medications Discontinued During This Encounter Prescriptions - meclizine (ANTIVERT) 25 mg tab (Discontinued) Take 25 mg by mouth as needed. Disposition: Return in about 6 months (around 12/16/2023) for Rock AguilarLana Follow-up and Disposition History for Encounter Date Provider Department Center 06/16/2023 [id number] Encounter Status:Closed by LAISHA LIZARRAGA on 06/16/23 PROGRESS Observed: 06/16/2023 1:45 PM Status: COMPLETED Source: [facility] REPOSITORY HNO ID: [id number] Author: Laisha Lizarraga APRN.VENDING MACHINE ATTENDANT Service: ? Author Type: Nurse Practitioner Type: Progress Notes Filed: 06/16/2023 3:22 PM Note Text: Lauren Alcaraz 1940 [address] [facility] [address] [facility] [address] June 16, 2023 [facility] FOLLOW-UP NOTE Accompanied by: spouse Misael Alcaraz is a pleasant 82 year old female seen today for a follow up visit. 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 CSF AD biomarkers negative. 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) Gait instability (R29.6) Multiple falls (R53.81) Physical deconditioning (F32.A) Depression, unspecified depression type (F41.9) Anxiety (R42) Dizziness (R26.89) Imbalance Patient was last seen on 03/14/23, at which time: -- completed repeat MRI showing significant whole brain volume loss at 2nd percentile and hippocampal volumes at 10th, with stable chronic WM changes since 2019, no lesions or other changes that would be expected to be contributing to dizziness -- UI controlled better with Myrbetriq -- not requiring a wheelchair lately -- had recent sleep study and told she should use CPAP but declined use We planned to try to get access to PSG results, start low-dose donepezil 2.5mg with plan for gradual up-titration, continue working w/ PT/therapy Today, Lauren and her spouse Misael returns for a routine follow up visit. She is reporting more trouble w/ her L peripheral vision lately, which she has seen her Truck Caterer about and who has ordered her a peripheral vision test (completed) and a repeat Brain MRI which did not reportedly show any significant changes from the scan we performed in Nov 2022. This image is not available for personal review She is not having siginficant L peripheral vision issues symptomatically She does have diplopia intermittently, but tends to happen in the afternoons, not when she is very tired. It doesn't happen all the time Sometimes she will blink her eyes and this resolves it, but it doesn't work every time. She also feels that her fine motor abilities are not improving-- she has trembling when holding a pen/pencil or a utensil and cannot write very legibly. She does not have a rest tremor She hasn't needed to use any adaptive devices for writing/utensils. She has been tolerating donepezil 5mg once daily (in the morning). She does report some vivid dreams (not nightmares), they do not bother her. She does feel she's getting benefit from it-- feels she is sharper and can catch things easier (Cognitively) Other interval history: Falls: negative Sleep: described as normal, feels rested upon waking. She feels she doesn't need to sleep as much--- may go to bed later (1-2am) and then sleep in until 8-9am ADL's requires assistance with the following ADL's: using household appliances, taking medications, grocery shopping, house cleaning, driving, and finances Driving?: No Vital Signs: BP 118/72 Pulse 81 Wt 48.1 kg (106 lb) LMP (LMP Unknown) BMI 21.41 kg/m? General Medical Exam: General: Well-nourished appearing, NAD. Awake, alert. HEENT: Normocephalic/atraumatic. Neurological Exam: Cognition: alert and cooperative MoCA: Not assessed today (Previous score: 02/14 in 10/2021.) Orientation: alert Appearance: normal grooming Eye contact: normal Facial expression: appropriate Psychomotor: normal Speech/Language: unremarkable -can name, repeat with no dysarthria Affect: pleasant PDW:no SI:no Self-injurious behavior:no Emotional state: calm, cooperative Thought Process: logical Thought Content: appropriate Hallucinations: none Judgment: intact Insight: good Diagnostic Results: MRI Brain from 12/04/22 IMPRESSION: * No evidence of an acute intracranial process or intracranial mass. * Marked volume loss with whole brain volumes at the 2nd percentile for age-matched controls * Hippocampal volumes at the 10th percentile when compared to age matched normal controls by quantitative analysis. * Moderate white matter disease which is nonspecific but likely reflective of chronic microvascular ischemia. * No evidence of parenchymal microhemorrhages by MRI. EEG from 2007 DATE: June 15, 2008 NO: [id number] Indication: Question of seizure Medications: None given Recording conditions: Presumably routine EEG. This is a routine EEG performed during the awake, drowsy and sleep states. Length of study: 23 minutes and 52 seconds EEG activity: The predominant posterior resting frequency is a rhythmic, symmetric 8.0 to 9.0 Hertz, 20 to 40 microvolt rhythm with reactivity to eye opening and eye closure demonstrated. Occasional sharp waves are noted throughout the left temporal recording representing less than 10% of activity. This is a normal variant for age. Generalized background is theta slowing consistent with drowsiness is demonstrated. Vertex transients, K-complexes and sleep spindles further characterize early stages of sleep. Photic stimulation is performed without appreciable change in the background rhythm. Hyperventilation was performed with good patient effort demonstrating symmetrically increased amplitudes and slowing. No EKG changes are noted. Impression: Normal routine EEG in the awake, drowsy and sleep states for age. EEG from 2017 IMPRESSION: Abnormal EEG capturing wakefulness to stage II sleep due to: 1. Independent left frontotemporal greater than right frontotemporal sharp waves in sleep. 2. Slow background in wakefulness CLINICAL CORRELATION: The presence of left frontotemporal greater than right frontotemporal sharp waves in sleep suggests a partial mechanism of epilepsy in a person with seizures. Slow background activity correlates with bilateral hemispheric dysfunction and may be seen in degenerative diseases, metabolic and toxic encephalopathies, head injuries. EEG Long from 11/20/20 Impression: This EEG shows evidence of cortical dysfunction maximum in the left temporal region. There is also evidence of a moderate diffuse encephalopathy. No definite epileptiform discharges or EEG seizures were seen during this recording. 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 Blanco says about the Brain MRI results and the peripheral vision testing- but I am not reading of any brain changes that would account for the vision changes- and I am not picking up on any visual field deficit today. Continue the donepezil at 5mg once daily for now 3. Do make use of a LifeAlert or alarm system that you can use if you need help or have a fall late at night before you go to bed. 4. Return to OT after the new year- to work on fine motor abilities Follow up in 4-6 months I spent a total of 40 minutes on the date of service which included [id number] patient care and counseling and educating the patient/spouse. Laisha Lizarraga, MSN, BUSSER-C, CNRN CC: 1. No primary care provider on file., (fax) None PROGRESS Observed: 03/14/2023 2:30 PM Status: COMPLETED Source: [facility] REPOSITORY HNO ID: [id number] Author: Laisha Lizarraga APRN.VENDING MACHINE ATTENDANT Service: ? Author Type: Nurse Practitioner Type: Progress Notes Filed: 03/14/2023 4:31 PM Note Text: Lauren Alcaraz 1940 [address] [facility] [address] [facility] [address] March 14, 2023 [facility] FOLLOW-UP NOTE Accompanied by: spouse Misael SUBJECTIVE Lauren Alcaraz is a pleasant 82 year old female seen today for a follow up visit. 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 CSF AD biomarkers negative. 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 In the interim she did complete repeat MRI Brain (including NeuroQuant analysis) to assess for changes that could be contributing to her dizziness. Imaging demonstrated fairly significant generalized volume loss with whole brain percentile at 2nd percentile and hippocampi at 10th percentile. Presence of chronic white matter changes appears largely stable from MRI in 2020. No pathology such as stroke, tumor, or lesion was noted in cerebellum or brainstem. She reports that her thoracic pain has been bothering her, and she's had a couple injections for this recently. She does still have gait dysfunction and some urinary urgency but she has been doing better in terms of incontinence- misael incontinence is not as big of a problem- it's controlled with Myrbetriq Lauren continues to struggle w/ dizziness. Her gait is overall better- and she does not have a wheelchair with her today. She is nervous if there is any chance that she may backslide or worsen, and is interested in trying to figure out how to prevent this. 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 She did recently have a Sleep Study and was told that she should use a CPAP- but she did not really want to use the mask and they said she could maybe get away with not using Mood: stable, no major problems reported ADL's requires assistance with the following ADL's: taking medications, driving, and finances Driving?: No No past medical history on file. SOCIAL HISTORY Social History Tobacco Use Smoking status: Never Smokeless tobacco: Never Substance Use Topics Alcohol use: Yes Comment: Weekly 1-2 drinks Drug use: Never Social History reviewed by Laisha Lizarraga APRN.VENDING MACHINE ATTENDANT PATIENT-ENTERED DATA Patient-Reported 03/09/2023 11/06/2022 Where are you currently living? Home / Private residence Home / Private residence Are you using any community resources to help care for yourself? No No Has your caregiver accompanied you today? Yes Yes Did you receive help completing this questionnaire? No Yes If you received help, could you have completed this questionnaire on your own? N/A - I did not receive any help Yes Activities of Daily Living (ADL) No flowsheet data found. PROMIS-10 PROMIS 10 03/09/2023 11/06/2022 In general, would you say your health is: Good Good In general, would you say your quality of life is: Good Good In general, how would you rate your physical health? Good Good In general, how would you rate your mental health, including your mood and your ability to think? Good Good In general, how would you rate your satisfaction with your social activities and relationships? Fair Good To what extent are you able to carry out your everyday physical activities such as walking, climbing stairs, carrying groceries, or moving a chair? A little Moderately In general, please rate how well you carry out your usual social activities and roles. (This includes activities at home, at work and in your community, and responsibilities as a parent, child, spouse, employee, friend, etc.) Fair Good How would you rate your pain on average? 6 7 How would you rate your fatigue on average? Moderate Mild How often have you been bothered by emotional problems such as feeling anxious, depressed or irritable? Rarely Sometimes PROMIS Adult Short Form-Global Health Score (Physical) 37.4 (Fair) 39.8 (Fair) PROMIS Adult Short Form-Global Health Score (Mental) 43.5 (Good) 43.5 (Good) PHQ-9 PHQ-9 All Questions 03/09/2023 11/06/2022 Little interest or pleasure in doing things 0 0 Feeling down, depressed, or hopeless 0 0 Trouble falling or staying asleep, or sleeping too much 0 0 Feeling tired or having little energy 1 1 Poor appetite or overeating 0 0 Feeling bad about yourself - or that you are a failure or have let yourself or your family down 0 0 Trouble concentrating on things, such as reading the newspaper or watching television 1 1 Moving or speaking so slowly that other people could have noticed. Or the opposite - being so fidgety or restless that you have been moving around a lot more than usual 0 0 Thoughts that you would be better off , or of hurting yourself in some way 0 0 PHQ-9 Score 2 2 (0-4) minimal depression (5-9) mild depression (10-14) moderate depression (15-19) moderately severe depression (20-27) severe depression Full History of PHQ-9 Scores PHQ-9 Score 03/09/2023 2 11/06/2022 2 07/18/2022 4 04/08/2022 4 01/17/2022 14 11/07/2021 16 10/04/2021 13 11/29/2020 8 10/23/2020 2 Sleep 03/09/2023 11/06/2022 What is your average total sleep time per night over the past 4 weeks? 6 Hours 8 Hours What is your average total sleep time during the day over the past 4 weeks? 1 Hours 1 Hours Have you been diagnosed with sleep apnea? Yes Yes Are you currently using positive airway pressure (PAP) therapy? No No Insomnia Severity Index 03/09/2023 11/06/2022 Difficulty falling asleep 0 0 Difficulty staying asleep 0 0 Problem waking up too early 1 1 Satisfied/dissatisfied with current sleep pattern 1 1 Sleep interferes with daily functions 1 1 Sleep problems noticeable to others 1 0 Worried/distressed about current sleep problems 1 0 Score 5 3 Caregiver-Reported 03/09/2023 11/06/2022 Are you the person who cares for the patient the majority of the time? (Primary Caregiver) Yes Yes How are you related to the patient? Spouse Spouse Do you currently reside with the patient? Yes Yes Are you currently employed outside the home? No No What is your gender? Male Male Please enter your age [age] Dementia Severity Rating Scale (DSRS) No flowsheet data found. OBJECTIVE Current Outpatient Medications on File Prior to Visit Medication Sig famotidine (PEPCID) 10 mg tablet Take 10 mg by mouth twice daily. moxifloxacin HCl (AVELOX ORAL) Take by mouth. DODEX 1,000 mcg/mL inject 1 milliliter ( 1000 MCG ) intramuscularly Every Month ammonium lactate (LAC-HYDRIN) 12 % lotion BD ECLIPSE LUER-BOZENA 3 mL 23 x 1 MULTIVITAMIN ORAL Take by mouth once daily. OXYGEN, HOME THERAPY, 2 L/min by Nasal Cannula route daily at bedtime. albuterol (PROVENTIL) 2.5 mg /3 mL (0.083 %) nebulizer solution as needed. Lactobacillus acidophilus (PROBIOTIC) 10 billion cell cap once daily. pramipexole (MIRAPEX) 0.5 mg tablet Take 0.5 mg by mouth three times daily. vortioxetine (TRINTELLIX) 20 mg tablet Take 20 mg by mouth once daily. atorvastatin (LIPITOR) 40 mg tablet Take 40 mg by mouth once daily. ELIQUIS 5 mg tab(s) BID levothyroxine (SYNTHROID) 25 mcg tablet Take 25 mcg by mouth once daily. memantine (NAMENDA) 10 mg tablet MYRBETRIQ 50 mg Tb24 Taking 2 tabs once daily lacosamide (VIMPAT) 100 mg tab Take 1 tablet by mouth twice daily for 180 days. nitroglycerin sublingual (NITROQUICK) 0.4 mg SL tablet as needed. aspirin, enteric coated (ASPIRIN, ENTERIC COATED) 81 mg EC tablet Take 81 mg by mouth once daily. tolterodine ER (DETROL LA) 4 mg 24 hr capsule Take 4 mg by mouth once daily. denosumab (PROLIA SUBCUTANEOUS) Inject 1 Dose subcutaneously once every 6 months. Last injection November 2020 No current facility-administered medications on file prior to visit. Vital Signs: BP 135/86 Pulse 75 Wt 49 kg (108 lb) LMP (LMP Unknown) BMI 21.81 kg/m? General Medical Exam: General: Well-nourished appearing, NAD. Awake, alert. HEENT: Normocephalic/atraumatic. Neurological Exam: Cognition: alert and cooperative MoCA: Not assessed today (Previous score: 02/14 in 10/2021.) Orientation: alert Appearance: normal grooming Eye contact: normal Facial expression: appropriate Psychomotor: normal Speech/Language: unremarkable -can name, repeat with no dysarthria Mood: good Affect: pleasant PDW:no SI:no Self-injurious behavior:no Emotional state: calm, cooperative Thought Process: logical Thought Content: appropriate Hallucinations: none Judgment: intact Insight: good Diagnostic Results: MRI Brain from 12/04/22 IMPRESSION: * No evidence of an acute intracranial process or intracranial mass. * Marked volume loss with whole brain volumes at the 2nd percentile for age-matched controls * Hippocampal volumes at the 10th percentile when compared to age matched normal controls by quantitative analysis. * Moderate white matter disease which is nonspecific but likely reflective of chronic microvascular ischemia. * No evidence of parenchymal microhemorrhages by MRI. EEG from 2007 DATE: June 15, 2008 NO: [id number] Indication: Question of seizure Medications: None given Recording conditions: Presumably routine EEG. This is a routine EEG performed during the awake, drowsy and sleep states. Length of study: 23 minutes and 52 seconds EEG activity: The predominant posterior resting frequency is a rhythmic, symmetric 8.0 to 9.0 Hertz, 20 to 40 microvolt rhythm with reactivity to eye opening and eye closure demonstrated. Occasional sharp waves are noted throughout the left temporal recording representing less than 10% of activity. This is a normal variant for age. Generalized background is theta slowing consistent with drowsiness is demonstrated. Vertex transients, K-complexes and sleep spindles further characterize early stages of sleep. Photic stimulation is performed without appreciable change in the background rhythm. Hyperventilation was performed with good patient effort demonstrating symmetrically increased amplitudes and slowing. No EKG changes are noted. Impression: Normal routine EEG in the awake, drowsy and sleep states for age. EEG from 2016 IMPRESSION: Abnormal EEG capturing wakefulness to stage II sleep due to: 1. Independent left frontotemporal greater than right frontotemporal sharp waves in sleep. 2. Slow background in wakefulness CLINICAL CORRELATION: The presence of left frontotemporal greater than right frontotemporal sharp waves in sleep suggests a partial mechanism of epilepsy in a person with seizures. Slow background activity correlates with bilateral hemispheric dysfunction and may be seen in degenerative diseases, metabolic and toxic encephalopathies, head injuries. EEG Long from 11/20/20 Impression: This EEG shows evidence of cortical dysfunction maximum in the left temporal region. There is also evidence of a moderate diffuse encephalopathy. No definite epileptiform discharges or EEG seizures were seen during this recording. 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 Please start 1/2 tablet (2.5mg) donepezil (Aricept) once daily /w breakfast for minimum of 4 weeks. Please update me around the 5-6 week ad about how Lauren is tolerating this. Watch for possible nausea, diarrhea, or muscle cramps. We'd be looking for any increased sharpness or clarity with cognition or memory. 3. 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 Follow up in 3 months I spent a total of 40 minutes on the date of service which included tnso-du-cloe patient care and counseling and educating the patient/spouse. Laisha Lizarraga, MSN, BUSSER-C, CNRN CC: 1. Chema Mas MD, (fax) [phone] [place] Observed: 03/14/2023 2:30 PM Status: COMPLETED Source: [facility] REPOSITORY Office Visit (NEBT) LAUREN ALCARAZ ([id number]) 1940 F Date Time Provider Department 03/14/23 2:30 PM LAISHA LIZARRAGA During your visit today, we recorded the following information about you: Pulse Blood pressure Weight 75/minute 135/86 49 kg Brandan Beverly 03/14/2023 2:30 PM Signed Lauren Alcaraz is a 82 year old year old woman accompanied by: spouse. Do you have any changes or new concerns you would like to address at the visit today? I continue to have the dizziness and I have had two steroid injections because I have pain in my thoracic area. Vital Signs: BP 135/86 Pulse 75 Wt 49 kg (108 lb) LMP (LMP Unknown) BMI 21.81 kg/m? Laisha Lizarraga APRN.[facility] 03/14/2023 4:31 PM Signed Lauren Alcaraz 1940 [address] [facility] [address] [facility] [address] [facility] [address] March 14, 2023 [facility] FOLLOW-UP NOTE Accompanied by: spouse Misael SUBJECTIVE Lauren Alcaraz is a pleasant 82 year old female seen today for a follow up visit. 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 CSF AD biomarkers negative. 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 In the interim she did complete repeat MRI Brain (including NeuroQuant analysis) to assess for changes that could be contributing to her dizziness. Imaging demonstrated fairly significant generalized volume loss with whole brain percentile at 2nd percentile and hippocampi at 10th percentile. Presence of chronic white matter changes appears largely stable from MRI in 2020. No pathology such as stroke, tumor, or lesion was noted in cerebellum or brainstem. She reports that her thoracic pain has been bothering her, and she's had a couple injections for this recently. She does still have gait dysfunction and some urinary urgency but she has been doing better in terms of incontinence- misael incontinence is not as big of a problem- it's controlled with Myrbetriq Lauren continues to struggle w/ dizziness. Her gait is overall better- and she does not have a wheelchair with her today. She is nervous if there is any chance that she may backslide or worsen, and is interested in trying to figure out how to prevent this. 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 She did recently have a Sleep Study and was told that she should use a CPAP- but she did not really want to use the mask and they said she could maybe get away with not using Mood: stable, no major problems reported ADL's requires assistance with the following ADL's: taking medications, driving, and finances Driving?: No No past medical history on file. SOCIAL HISTORY Social History Tobacco Use Smoking status: Never Smokeless tobacco: Never Substance Use Topics Alcohol use: Yes Comment: Weekly 1-2 drinks Drug use: Never Social History reviewed by Laisha Lizarraga APRN.CNP PATIENT-ENTERED DATA Patient-Reported 03/09/2023 11/06/2022 Where are you currently living? Home / Private residence Home / Private residence Are you using any community resources to help care for yourself? No No Has your caregiver accompanied you today? Yes Yes Did you receive help completing this questionnaire? No Yes If you received help, could you have completed this questionnaire on your own? N/A - I did not receive any help Yes Activities of Daily Living (ADL) No flowsheet data found. PROMIS-10 PROMIS 10 03/09/2023 11/06/2022 In general, would you say your health is: Good Good In general, would you say your quality of life is: Good Good In general, how would you rate your physical health? Good Good In general, how would you rate your mental health, including your mood and your ability to think? Good Good In general, how would you rate your satisfaction with your social activities and relationships? Fair Good To what extent are you able to carry out your everyday physical activities such as walking, climbing stairs, carrying groceries, or moving a chair? A little Moderately In general, please rate how well you carry out your usual social activities and roles. (This includes activities at home, at work and in your community, and responsibilities as a parent, child, spouse, employee, friend, etc.) Fair Good How would you rate your pain on average? 6 7 How would you rate your fatigue on average? Moderate Mild How often have you been bothered by emotional problems such as feeling anxious, depressed or irritable? Rarely Sometimes PROMIS Adult Short Form-Global Health Score (Physical) 37.4 (Fair) 39.8 (Fair) PROMIS Adult Short Form-Global Health Score (Mental) 43.5 (Good) 43.5 (Good) PHQ-9 PHQ-9 All Questions 03/09/2023 11/06/2022 Little interest or pleasure in doing things 0 0 Feeling down, depressed, or hopeless 0 0 Trouble falling or staying asleep, or sleeping too much 0 0 Feeling tired or having little energy 1 1 Poor appetite or overeating 0 0 Feeling bad about yourself - or that you are a failure or have let yourself or your family down 0 0 Trouble concentrating on things, such as reading the newspaper or watching television 1 1 Moving or speaking so slowly that other people could have noticed. Or the opposite - being so fidgety or restless that you have been moving around a lot more than usual 0 0 Thoughts that you would be better off , or of hurting yourself in some way 0 0 PHQ-9 Score 2 2 (0-4) minimal depression (5-9) mild depression (10-14) moderate depression (15-19) moderately severe depression (20-27) severe depression Full History of PHQ-9 Scores PHQ-9 Score 03/09/2023 2 11/06/2022 2 07/18/2022 4 04/08/2022 4 01/17/2022 14 11/07/2021 16 10/04/2021 13 11/29/2020 8 10/23/2020 2 Sleep 03/09/2023 11/06/2022 What is your average total sleep time per night over the past 4 weeks? 6 Hours 8 Hours What is your average total sleep time during the day over the past 4 weeks? 1 Hours 1 Hours Have you been diagnosed with sleep apnea? Yes Yes Are you currently using positive airway pressure (PAP) therapy? No No Insomnia Severity Index 03/09/2023 11/06/2022 Difficulty falling asleep 0 0 Difficulty staying asleep 0 0 Problem waking up too early 1 1 Satisfied/dissatisfied with current sleep pattern 1 1 Sleep interferes with daily functions 1 1 Sleep problems noticeable to others 1 0 Worried/distressed about current sleep problems 1 0 Score 5 3 Caregiver-Reported 03/09/2023 11/06/2022 Are you the person who cares for the patient the majority of the time? (Primary Caregiver) Yes Yes How are you related to the patient? Spouse Spouse Do you currently reside with the patient? Yes Yes Are you currently employed outside the home? No No What is your gender? Male Male Please enter your age [age] Dementia Severity Rating Scale (DSRS) No flowsheet data found. OBJECTIVE Current Outpatient Medications on File Prior to Visit Medication Sig famotidine (PEPCID) 10 mg tablet Take 10 mg by mouth twice daily. moxifloxacin HCl (AVELOX ORAL) Take by mouth. DODEX 1,000 mcg/mL inject 1 milliliter ( 1000 MCG ) intramuscularly Every Month ammonium lactate (LAC-HYDRIN) 12 % lotion BD ECLIPSE LUER-BOZENA 3 mL 23 x 1 MULTIVITAMIN ORAL Take by mouth once daily. OXYGEN, HOME THERAPY, 2 L/min by Nasal Cannula route daily at bedtime. albuterol (PROVENTIL) 2.5 mg /3 mL (0.083 %) nebulizer solution as needed. Lactobacillus acidophilus (PROBIOTIC) 10 billion cell cap once daily. pramipexole (MIRAPEX) 0.5 mg tablet Take 0.5 mg by mouth three times daily. vortioxetine (TRINTELLIX) 20 mg tablet Take 20 mg by mouth once daily. atorvastatin (LIPITOR) 40 mg tablet Take 40 mg by mouth once daily. ELIQUIS 5 mg tab(s) BID levothyroxine (SYNTHROID) 25 mcg tablet Take 25 mcg by mouth once daily. memantine (NAMENDA) 10 mg tablet MYRBETRIQ 50 mg Tb24 Taking 2 tabs once daily lacosamide (VIMPAT) 100 mg tab Take 1 tablet by mouth twice daily for 180 days. nitroglycerin sublingual (NITROQUICK) 0.4 mg SL tablet as needed. aspirin, enteric coated (ASPIRIN, ENTERIC COATED) 81 mg EC tablet Take 81 mg by mouth once daily. tolterodine ER (DETROL LA) 4 mg 24 hr capsule Take 4 mg by mouth once daily. denosumab (PROLIA SUBCUTANEOUS) Inject 1 Dose subcutaneously once every 6 months. Last injection November 2020 No current facility-administered medications on file prior to visit. Vital Signs: BP 135/86 Pulse 75 Wt 49 kg (108 lb) LMP (LMP Unknown) BMI 21.81 kg/m? General Medical Exam: General: Well-nourished appearing, NAD. Awake, alert. HEENT: Normocephalic/atraumatic. Neurological Exam: Cognition: alert and cooperative MoCA: Not assessed today (Previous score: 02/14 in 10/2021.) Orientation: alert Appearance: normal grooming Eye contact: normal Facial expression: appropriate Psychomotor: normal Speech/Language: unremarkable -can name, repeat with no dysarthria Mood: good Affect: pleasant PDW:no SI:no Self-injurious behavior:no Emotional state: calm, cooperative Thought Process: logical Thought Content: appropriate Hallucinations: none Judgment: intact Insight: good Diagnostic Results: MRI Brain from 12/04/22 IMPRESSION: * No evidence of an acute intracranial process or intracranial mass. * Marked volume loss with whole brain volumes at the 2nd percentile for age-matched controls * Hippocampal volumes at the 10th percentile when compared to age matched normal controls by quantitative analysis. * Moderate white matter disease which is nonspecific but likely reflective of chronic microvascular ischemia. * No evidence of parenchymal microhemorrhages by MRI. EEG from 2007 DATE: June 15, 2008 NO: [id number] Indication: Question of seizure Medications: None given Recording conditions: Presumably routine EEG. This is a routine EEG performed during the awake, drowsy and sleep states. Length of study: 23 minutes and 52 seconds EEG activity: The predominant posterior resting frequency is a rhythmic, symmetric 8.0 to 9.0 Hertz, 20 to 40 microvolt rhythm with reactivity to eye opening and eye closure demonstrated. Occasional sharp waves are noted throughout the left temporal recording representing less than 10% of activity. This is a normal variant for age. Generalized background is theta slowing consistent with drowsiness is demonstrated. Vertex transients, K-complexes and sleep spindles further characterize early stages of sleep. Photic stimulation is performed without appreciable change in the background rhythm. Hyperventilation was performed with good patient effort demonstrating symmetrically increased amplitudes and slowing. No EKG changes are noted. Impression: Normal routine EEG in the awake, drowsy and sleep states for age. EEG from 2016 IMPRESSION: Abnormal EEG capturing wakefulness to stage II sleep due to: 1. Independent left frontotemporal greater than right frontotemporal sharp waves in sleep. 2. Slow background in wakefulness CLINICAL CORRELATION: The presence of left frontotemporal greater than right frontotemporal sharp waves in sleep suggests a partial mechanism of epilepsy in a person with seizures. Slow background activity correlates with bilateral hemispheric dysfunction and may be seen in degenerative diseases, metabolic and toxic encephalopathies, head injuries. EEG Long from 11/20/20 Impression: This EEG shows evidence of cortical dysfunction maximum in the left temporal region. There is also evidence of a moderate diffuse encephalopathy. No definite epileptiform discharges or EEG seizures were seen during this recording. 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 Please start 1/2 tablet (2.5mg) donepezil (Aricept) once daily /w breakfast for minimum of 4 weeks. Please update me around the 5-6 week ad about how Lauren is tolerating this. Watch for possible nausea, diarrhea, or muscle cramps. We'd be looking for any increased sharpness or clarity with cognition or memory. 3. 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 Follow up in 3 months I spent a total of 40 minutes on the date of service which included [id number] patient care and counseling and educating the patient/spouse. Laisha Lizarraga, MSN, BUSSER-C, CNRN CC: 1. Chema Mas MD, (fax) [phone] Laisha Lizarraga, ROSMERY.[facility] 03/14/2023 3:23 PM Signed Let me know once you get the results from the Sleep Study- maybe I can access those at some point 2. Please start 1/2 tablet (2.5mg) donepezil (Aricept) once daily /w breakfast for minimum of 4 weeks. Please update me around the 5-6 week ad about how Lauren is tolerating this. Watch for possible nausea, diarrhea, or muscle cramps. We'd be looking for any increased sharpness or clarity with cognition or memory. 3. 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 Follow up in 2-3 months Referring Provider: LAISHA LIZARRAGA [[id number]] Allergies As of Date: 03/14/2023 Noted Allergy Reaction PROPOXYPHENE N-ACETAMINOPHEN 02/08/2006 14 - Other: See Comments Comments: hallucinations ADHESIVE TAPE-SILICONES 02/23/2015 16 - Unknown Comments: Other reaction(s): Other (comments) Not sure which type of tape but red skin. DOXYCYCLINE 08/09/2020 11 - Vomiting LAMICTAL (LAMOTRIGINE) 08/09/2020 7 - Swelling Comments: Lips swelling LATEX 02/14/2021 2 - Rash PERCOCET (OXYCODONE-ACETAMINOPHEN)08/09/2020 1 - Mental Status Change PROPOXYPHENE 11/07/2008 1 - Mental Status Change 14 - Other: See Comments Comments: Hallucinations Includes Darvocet ADHESIVE 02/23/2015 14 - Other: See Comments Comments: Not sure which type of tape but red skin. DICLOFENAC SODIUM 07/17/2015 14 - Other: See Comments Comments: Topical gel resulted in hand swelling. 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 - meclizine (ANTIVERT) 25 mg tab Take 25 mg by mouth as needed. - traMADol (ULTRAM) 50 mg tablet Take 50 mg by mouth as needed. - donepezil (ARICEPT) 5 mg tablet Take 0.5 tablets by mouth daily with breakfast. - famotidine (PEPCID) 10 mg tablet Take 10 mg by mouth twice daily. - DODEX 1,000 mcg/mL inject 1 milliliter ( 1000 MCG ) intramuscularly Every Month - ammonium lactate (LAC-HYDRIN) 12 % lotion - BD ECLIPSE LUER-BOZENA 3 mL 23 x 1 - MULTIVITAMIN ORAL Take by mouth once daily. - albuterol (PROVENTIL) 2.5 mg /3 mL (0.083 %) nebulizer solution as needed. - Lactobacillus acidophilus (PROBIOTIC) 10 billion cell cap once daily. - pramipexole (MIRAPEX) 0.5 mg tablet Take 0.5 mg by mouth three times daily. - vortioxetine (TRINTELLIX) 20 mg tablet Take 20 mg by mouth once daily. - atorvastatin (LIPITOR) 40 mg tablet Take 40 mg by mouth once daily. - ELIQUIS 5 mg tab(s) BID - levothyroxine (SYNTHROID) 25 mcg tablet Take 25 mcg by mouth once daily. - memantine (NAMENDA) 10 mg tablet - MYRBETRIQ 50 mg Tb24 Taking 2 tabs once daily - lacosamide (VIMPAT) 100 mg tab Take 1 tablet by mouth twice daily for 180 days. - nitroglycerin sublingual (NITROQUICK) 0.4 mg SL tablet as needed. - aspirin, enteric coated (ASPIRIN, ENTERIC COATED) 81 mg EC tablet Take 81 mg by mouth once daily. - tolterodine ER (DETROL LA) 4 mg 24 hr capsule Take 4 mg by mouth once daily. - denosumab (PROLIA SUBCUTANEOUS) Inject 1 Dose subcutaneously once every 6 months. 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 Please start 1/2 tablet (2.5mg) donepezil (Aricept) once daily /w breakfast for minimum of 4 weeks. Please update me around the 5-6 week ad about how Lauren is tolerating this. Watch for possible nausea, diarrhea, or muscle cramps. We'd be looking for any increased sharpness or clarity with cognition or memory. 3. 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 Follow up in 2-3 months Visit Notes: >> Liane Brandan Fri Mar 14, 2023 2:28 PM Status: Signed Lauren Alcaraz is a 82 year old year old woman accompanied by: spouse. Do you have any changes or new concerns you would like to address at the visit today? I continue to have the dizziness and I have had two steroid injections because I have pain in my thoracic area. Vital Signs: BP 135/86 Pulse 75 Wt 49 kg (108 lb) LMP (LMP Unknown) BMI 21.81 kg/m? Prescriptions ordered this encounter Disp Refills Start End DONEPEZIL 5 MG TABLET 45 t* 1 03/14/2023 Route: ORAL Sig: Take 0.5 tablets by mouth daily with breakfast. Medications Discontinued During This Encounter Prescriptions - moxifloxacin HCl (AVELOX ORAL) (Discontinued) Take by mouth. - OXYGEN, HOME THERAPY, (Discontinued) 2 L/min by Nasal Cannula route daily at bedtime. Disposition: Return in about 3 months (around 06/14/2023) for Rock Guillen Follow-up and Disposition History for Encounter Date Provider Department Center 03/14/2023 [id number], [facility] Encounter Status:Closed by LAISHA LIZARRAGA on 03/14/23 MRI 3D POST PROCESSING Observed: 023 2:13 PM Status: F Source: [facility] REPOSITORY * * *Final Report* * * DATE OF EXAM: Dec 04 2022 2:13PM [facility] [id number] - MRI 3D POST PROCESSING / PROCEDURE REASON: 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) * * * * Physician Interpretation * * * * EXAMINATION: MRI BRAIN W QUANT WO IVCON, MRI 3D POST PROCESSING CLINICAL HISTORY: Dementia without behavioral disturbance TECHNIQUE: Axial FRED FLAIR, FRED T2, diffusion and susceptibility weighted imaging without contrast, using the ADNI dementia protocol and 3-D post-processing using the NeuroQuant software at an independent workstation with concurrent physician supervision and images were created, reviewed and archived. MQ: [id number] COMPARISON: None RESULT: QUALITATIVE: Acute Intracranial Process: None. Chronic Intracranial Process: Moderate chronic microvascular ischemic change.. Age related white matter changes (ARWMC) rating: White matter lesions: 2 Basal ganglia lesions: 0 Prior intracranial hemorrhage: Parenchymal microhemorrhages: 0 Other (siderosis/macrohemorrhages (>10mm): Not Applicable Amyloid Related Imaging Abnormalities: ARIA-E: N/A ARIA-H Microhemorrhage: N/A ARIA-H Siderosis: N/A Qualitative brain and hippocampal volume loss for age: Moderate diffuse qualitative volume loss. Ventricles: Commensurate with volume loss. Brain Parenchymal Signal and Morphology: The brain parenchyma is otherwise within normal limits of signal and morphology. There is no evidence of an intracranial mass or extraaxial fluid collection. Other Significant Findings: None. QUANTITATIVE: Exam Quality: Adequate for volumetric analysis. Segmentation: Negligible mismapping by visual inspection. Quantitative Data: Total Hippocampal Volume: Percentile for Age: 10 Asymmetry Index: -3 Inferior Lateral Vent Volume: Percentile for age: 98 Asymmetry Index: -11 Superior Lateral Vent Volume: Percentile for age: 99 Asymmetry Index: 4.3 Temporal Lobe Volume: Temporal Lobe Percentile for Age: 22 Temporal Lobe Asymmetry Index: 6 Frontal Lobe Volume: Frontal Lobe Percentile for Age: 34 Frontal Lobe Asymmetry Index: -3 Parietal Lobe Volume: Parietal Lobe Percentile for Age:12 Occipital Lobe Volume: Occipital Lobe Percentile for Age: 18 Whole Brain Volume Brain Percentile for Age: 2 Concordance between qualitative and quantitative hippocampal volume assessment: Concordant Change in brain volumes: No previous volumetric study for comparison Brain Volume Change: N/A Hippocampal Volume Change: N/A Superior Lateral Ventricle Volume Change: N/A Inferior Lateral Ventricle Volume Change: N/A Mean hippocampal volume loss among normal elderly: 0.7% per year, (-0.3 to 1.7; Ozzy 2008; also Luis Manuel 2010). IMPRESSION: * No evidence of an acute intracranial process or intracranial mass. * Marked volume loss with whole brain volumes at the 2nd percentile for age-matched controls * Hippocampal volumes at the 10th percentile when compared to age matched normal controls by quantitative analysis. * Moderate white matter disease which is nonspecific but likely reflective of chronic microvascular ischemia. * No evidence of parenchymal microhemorrhages by MRI. REFERENCES: White Matter Lesions: 0 = No lesions, including symmetrical, well-defined caps or bands 1 = Focal Lesions 2 = Beginning of [place] 3 = Diffuse Involvement of Entire Region Basal Ganglia Lesions: 0 = No Lesions 1 = 1 Focal Lesion (>5mm) 2 = >1 Focal Lesion (>5mm) 3 = Confluent Lesions Luis Manuel Sandoval, et al. The clinical use of structural MRI in Alzheimer disease. Nature Reviews Neurology 6;67 (2010). Ozzy et al. Validation of a fully automated 3D hippocampal segmentation method using subjects with Alzheimer's disease mild cognitive impairment, and elderly controls. Neuroimage 43;59 (2008). Wahlund et al. A New Rating Scale for Age-Related White Matter Changes Applicable to MRI and CT. Stroke. 32:1318 (2001). * Asymmetry index defined as difference between left and right volumes divided by mean or [(L-R/Mean) x 100] (%). Age-matched reference charts measure total hippocampal volume (% of intracranial volume). See results from the analysis charts for details. Lead Technologist In Cytogenetics: ARTHUR Transcribe Date/Time: Dec 04 2022 2:45P Dictated by : SUSAN LOMELI MD This examination was interpreted and the report reviewed and electronically signed by: SUSAN LOMELI MD on Dec 04 2022 3:20PM EST [id number] MRI BRAIN W QUANT WO IVCON Observed: 2:13 PM Status: F Source: [facility] REPOSITORY * * *Final Report* * * DATE OF EXAM: Dec 04 2022 2:13PM [facility] [id number] - MRI BRAIN W QUANT WO IVCON / PROCEDURE REASON: 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) * * * * Physician Interpretation * * * * EXAMINATION: MRI BRAIN W QUANT WO IVCON, MRI 3D POST PROCESSING CLINICAL HISTORY: Dementia without behavioral disturbance TECHNIQUE: Axial FRED FLAIR, FRED T2, diffusion and susceptibility weighted imaging without contrast, using the ADNI dementia protocol and 3-D post-processing using the Zursh software at an independent workstation with concurrent physician supervision and images were created, reviewed and archived. MQ: [id number] COMPARISON: None RESULT: QUALITATIVE: Acute Intracranial Process: None. Chronic Intracranial Process: Moderate chronic microvascular ischemic change.. Age related white matter changes (ARWMC) rating: White matter lesions: 2 Basal ganglia lesions: 0 Prior intracranial hemorrhage: Parenchymal microhemorrhages: 0 Other (siderosis/macrohemorrhages (>10mm): Not Applicable Amyloid Related Imaging Abnormalities: ARIA-E: N/A ARIA-H Microhemorrhage: N/A ARIA-H Siderosis: N/A Qualitative brain and hippocampal volume loss for age: Moderate diffuse qualitative volume loss. Ventricles: Commensurate with volume loss. Brain Parenchymal Signal and Morphology: The brain parenchyma is otherwise within normal limits of signal and morphology. There is no evidence of an intracranial mass or extraaxial fluid collection. Other Significant Findings: None. QUANTITATIVE: Exam Quality: Adequate for volumetric analysis. Segmentation: Negligible mismapping by visual inspection. Quantitative Data: Total Hippocampal Volume: Percentile for Age: 10 Asymmetry Index: -3 Inferior Lateral Vent Volume: Percentile for age: 98 Asymmetry Index: -11 Superior Lateral Vent Volume: Percentile for age: 99 Asymmetry Index: 4.3 Temporal Lobe Volume: Temporal Lobe Percentile for Age: 22 Temporal Lobe Asymmetry Index: 6 Frontal Lobe Volume: Frontal Lobe Percentile for Age: 34 Frontal Lobe Asymmetry Index: -3 Parietal Lobe Volume: Parietal Lobe Percentile for Age:12 Occipital Lobe Volume: Occipital Lobe Percentile for Age: 18 Whole Brain Volume Brain Percentile for Age: 2 Concordance between qualitative and quantitative hippocampal volume assessment: Concordant Change in brain volumes: No previous volumetric study for comparison Brain Volume Change: N/A Hippocampal Volume Change: N/A Superior Lateral Ventricle Volume Change: N/A Inferior Lateral Ventricle Volume Change: N/A Mean hippocampal volume loss among normal elderly: 0.7% per year, (-0.3 to 1.7; Ozzy 2008; also Luis Manuel 2010). IMPRESSION: * No evidence of an acute intracranial process or intracranial mass. * Marked volume loss with whole brain volumes at the 2nd percentile for age-matched controls * Hippocampal volumes at the 10th percentile when compared to age matched normal controls by quantitative analysis. * Moderate white matter disease which is nonspecific but likely reflective of chronic microvascular ischemia. * No evidence of parenchymal microhemorrhages by MRI. REFERENCES: White Matter Lesions: 0 = No lesions, including symmetrical, well-defined caps or bands 1 = Focal Lesions 2 = Beginning of [place] 3 = Diffuse Involvement of Entire Region Basal Ganglia Lesions: 0 = No Lesions 1 = 1 Focal Lesion (>5mm) 2 = >1 Focal Lesion (>5mm) 3 = Confluent Lesions Luis Manuel Sandoval et al. The clinical use of structural MRI in Alzheimer disease. Nature Reviews Neurology 6;67 (2010). Ozzy et al. Validation of a fully automated 3D hippocampal segmentation method using subjects with Alzheimer's disease mild cognitive impairment, and elderly controls. Neuroimage 43;59 (2008). Edd et al. A New Rating Scale for Age-Related White Matter Changes Applicable to MRI and CT. Stroke. 32:1318 (2001). * Asymmetry index defined as difference between left and right volumes divided by mean or [(L-R/Mean) x 100] (%). Age-matched reference charts measure total hippocampal volume (% of intracranial volume). See results from the analysis charts for details. Lead Technologist In Cytogenetics: ARTHUR Transcribe Date/Time: Dec 04 2022 2:45P Dictated by : SUSAN LOMELI MD This examination was interpreted and the report reviewed and electronically signed by: SUSAN LOMELI MD on Dec 04 2022 3:20PM EST [id number] PROGRESS Observed: 12/04/2022 1:30 PM Status: COMPLETED Source: [facility] REPOSITORY HNO ID: [id number] Author: RT Getachew(Morro) Service: Radiology Author Type: Brine Room Laborer Type: Progress Notes Filed: 12/04/2022 2:16 PM Note Text: Radiology Service Progress Note PATIENT NAME: Lauren Alcaraz DATE OF SERVICE: December 04, 2022 TIME: 2:15 PM PATIENT IDENTITY VERIFICATION COMPLETED USING TWO (2) IDENTIFIERS: Name and Date of confirmed by patient verbally. FALL SCREENING: Has the patient had 2 falls in the last year or 1 fall with injury or currently using an Ambulatory Assistive Device (Walker, Cane, Wheelchair, Crutches, etc.)? No PATIENT GENDER DATA: Female. status: : No status: NO. PATIENT RELEVANT IMPLANT DATA REVIEWED: Yes RADIOLOGY DEPARTMENT: MR; Exam(s) Completed: Head: Routine Brain Dementia PERIPHERAL IV DATA: Not applicable SIGNED BY: RT Getachew(R) December 04, 2022 2:15 PM CNOV Observed: 11/13/2022 1:00 PM Status: COMPLETED Source: [facility] REPOSITORY Office Visit (MADELINE) LAUREN ALCARAZ ([id number]) 1940 F Date Time Provider Department 11/13/22 1:00 PM LAISHA LIZARRAGA During your visit today, we recorded the following information about you: Pulse Blood pressure Weight 77/minute 113/69 49.9 kg Laisha Lizarraga APRN.VENDING MACHINE ATTENDANT 11/14/2022 11:58 AM Signed Lauren Alcaraz 1940 [address] [facility] [id number] November 13, 2022 [facility] FOLLOW-UP NOTE Accompanied by: spouse Misael SUBJECTIVE Lauren Alcaraz is a pleasant 81 year old female seen today for a follow up visit. 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 CSF AD biomarkers negative. Patient was last seen on 07/25/22, at which time: -- fall recently w/ L shoulder injury and required stitches- CTH negative -- cognition maybe slightly better in interim, better than when she had COVID/falls/hospitalizations -- recently went to [facility]pite [facility] for ~1 week which went well -- still have caregiver at home 5 days/week for 6 hrs/day Today, Lauren and her spouse Misael return for a routine follow up visit. She feels that her walking has been much better-- has been doing PT in the interim then transferred to a hop strainer, and is not using a wheelchair today. She is using a Rollator today. Her goal is to walk unassisted. She has also been going to Cognitive/Speech therapy and feels it may be helping- someone down in the [place] area linked w/ her other therapies She has been having dizziness. It's described as not necessarily positional- based on her noticing that it doesn't seem to change w/ position. There's no clear pattern to when she experiences it. She was once given a medication for dizziness but it didn't really help. They are not sure what it was. There is no spinning/vertiginous sensation. There is a mild lightheadedness sensation She will have a seat or take a break from what she's doing It doesn't happen predictably right after standing from sitting She did have orthostatic VS taken at her PCPs office which were reportedly not revealing They have also been able to get her into a normal bed now Other interval history: Falls: positive Sleep: described as normal, feels rested upon waking ADL's requires assistance with all ADLs Driving?: No History reviewed. No pertinent past medical history. SOCIAL HISTORY Social History Tobacco Use Smoking status: Never Smokeless tobacco: Never Substance Use Topics Alcohol use: Yes Comment: Weekly 1-2 drinks Drug use: Never Social History reviewed by Laisha Lizarraga APRN.VENDING MACHINE ATTENDANT PATIENT-ENTERED DATA Patient-Reported 11/06/2022 07/18/2022 Where are you currently living? Home / Private residence Home / Private residence Are you using any community resources to help care for yourself? 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 Yes Yes Did you receive help completing this questionnaire? Yes Yes If you received help, could you have completed this questionnaire on your own? Yes Yes Activities of Daily Living (ADL) No flowsheet data found. PROMIS-10 PROMIS 10 11/06/2022 07/18/2022 In general, would you say your health is: Good Good In general, would you say your quality of life is: Good Very good In general, how would you rate your physical health? Good Good In general, how would you rate your mental health, including your mood and your ability to think? Good Good In general, how would you rate your satisfaction with your social activities and relationships? Good Good To what extent are you able to carry out your everyday physical activities such as walking, climbing stairs, carrying groceries, or moving a chair? Moderately A little In general, please rate how well you carry out your usual social activities and roles. (This includes activities at home, at work and in your community, and responsibilities as a parent, child, spouse, employee, friend, etc.) Good Good How would you rate your pain on average? 7 4 How would you rate your fatigue on average? Mild Mild How often have you been bothered by emotional problems such as feeling anxious, depressed or irritable? Sometimes Rarely PROMIS Adult Short Form-Global Health Score (Physical) 39.8 (Fair) 39.8 (Fair) PROMIS Adult Short Form-Global Health Score (Mental) 43.5 (Good) 48.3 (Very Good) PHQ-9 PHQ-9 All Questions 11/06/2022 07/18/2022 Little interest or pleasure in doing things 0 0 Feeling down, depressed, or hopeless 0 1 Trouble falling or staying asleep, or sleeping too much 0 0 Feeling tired or having little energy 1 1 Poor appetite or overeating 0 0 Feeling bad about yourself - or that you are a failure or have let yourself or your family down 0 0 Trouble concentrating on things, such as reading the newspaper or watching television 1 1 Moving or speaking so slowly that other people could have noticed. Or the opposite - being so fidgety or restless that you have been moving around a lot more than usual 0 1 Thoughts that you would be better off , or of hurting yourself in some way 0 0 PHQ-9 Score 2 4 (0-4) minimal depression (5-9) mild depression (10-14) moderate depression (15-19) moderately severe depression (20-27) severe depression Full History of PHQ-9 Scores PHQ-9 Score 11/06/2022 2 07/18/2022 4 04/08/2022 4 01/17/2022 14 11/07/2021 16 10/04/2021 13 11/29/2020 8 10/23/2020 2 Sleep 11/06/2022 07/18/2022 What is your average total sleep time per night over the past 4 weeks? 8 Hours 8 Hours What is your average total sleep time during the day over the past 4 weeks? 1 Hours 1 Hours Have you been diagnosed with sleep apnea? Yes Yes Are you currently using positive airway pressure (PAP) therapy? No No Insomnia Severity Index 11/06/2022 07/18/2022 Difficulty falling asleep 0 0 Difficulty staying asleep 0 0 Problem waking up too early 1 0 Satisfied/dissatisfied with current sleep pattern 1 0 Sleep interferes with daily functions 1 0 Sleep problems noticeable to others 0 0 Worried/distressed about current sleep problems 0 0 Score 3 0 Caregiver-Reported 11/06/2022 07/18/2022 Are you the person who cares for the patient the majority of the time? (Primary Caregiver) Yes Yes How are you related to the patient? Spouse Spouse Do you currently reside with the patient? Yes Yes Are you currently employed outside the home? No No What is your gender? Male Male Please enter your age [age] Dementia Severity Rating Scale (DSRS) No flowsheet data found. OBJECTIVE Current Outpatient Medications on File Prior to Visit Medication Sig OXYGEN, HOME THERAPY, 2 L/min by Nasal Cannula route daily at bedtime. albuterol (PROVENTIL) 2.5 mg /3 mL (0.083 %) nebulizer solution as needed. Lactobacillus acidophilus (PROBIOTIC) 10 billion cell cap once daily. pramipexole (MIRAPEX) 0.5 mg tablet Take 0.5 mg by mouth three times daily. vortioxetine (TRINTELLIX) 20 mg tablet Take 20 mg by mouth once daily. atorvastatin (LIPITOR) 40 mg tablet Take 40 mg by mouth once daily. ELIQUIS 5 mg tab(s) BID levothyroxine (SYNTHROID) 25 mcg tablet Take 25 mcg by mouth once daily. memantine (NAMENDA) 10 mg tablet MYRBETRIQ 50 mg Tb24 Taking 2 tabs once daily lacosamide (VIMPAT) 100 mg tab Take 1 tablet by mouth twice daily for 180 days. nitroglycerin sublingual (NITROQUICK) 0.4 mg SL tablet as needed. aspirin, enteric coated (ASPIRIN, ENTERIC COATED) 81 mg EC tablet Take 81 mg by mouth once daily. tolterodine ER (DETROL LA) 4 mg 24 hr capsule Take 4 mg by mouth once daily. denosumab (PROLIA SUBCUTANEOUS) Inject 1 Dose subcutaneously once every 6 months. Last injection November 2020 No current facility-administered medications on file prior to visit. Vital Signs: BP 113/69 Pulse 77 Wt 49.9 kg (110 lb) LMP (LMP Unknown) BMI 22.22 kg/m? General Medical Exam: General: Well-nourished appearing, NAD. Awake, alert. HEENT: Normocephalic/atraumatic. Neurological Exam: Cognition: alert and cooperative MoCA: Not assessed today (Previous score: 30 in 10/2021.) Orientation: alert Appearance: normal grooming Eye contact: normal Facial expression: appropriate Psychomotor: normal Speech/Language: unremarkable -can name, repeat with no dysarthria Mood: pretty good most of the time Affect: pleasant PDW:no SI:no Self-injurious behavior:no Emotional state: calm, cooperative Thought Process: logical Thought Content: appropriate Hallucinations: none Judgment: intact Insight: good Cranial Nerves II: VFFTC, PERRLA with gaze directed as instructed III, IV, : EOMI with smooth pursuit and normal saccades +mild R eye exotropia +nystagmus with gaze to R V: Facial sensation is intact bilaterally with normal jaw closure VII: Eye closure and smile normal, no facial droop or flattening of nasal labial fold VIII: Hearing is normal to finger rub bilaterally IX, X: Uvula elevates in the midline XI: Sternocleidomastoid and trapezius have normal strength XII: Tongue protrudes in the midline Motor Strength is 5/5 in upper and lower extremities Finger strength is normal bilaterally Normal muscle bulk with no fasciculations No resting tremor No bradykinesia, no abnormal movements Horizontal arm extension: +mild postural/intention tremor bilaterally Pronator drift: negative Coordination Cerebellar: no dysmetria or dysdiadochokinesis, normal pronation/supination Cerebrospinal tract: Toe tap normal bilaterally, Leg raise normal bilaterally Finger fine motor: Tap w/ thumb normal bilaterally, Flex./ext. normal bilaterally Finger to nose: good Posture and Gait Able to stand independently without use of walker- able to ambulate w/ Rollator- improvement from prior Diagnostic Results: MRI Brain from 11/01/19 1. No acute findings. No evidence of acute infarct, mass or hemorrhage. No unusual enhancement. 2. The exam is notable for prominent atrophy and prominent white matter changes, most consistent with chronic small vessel ischemic disease. I do not appreciate a major change when compared to a prior study from last Year. EEG from 2007 DATE: June 15, 2008 NO: [id number] Indication: Question of seizure Medications: None given Recording conditions: Presumably routine EEG. This is a routine EEG performed during the awake, drowsy and sleep states. Length of study: 23 minutes and 52 seconds EEG activity: The predominant posterior resting frequency is a rhythmic, symmetric 8.0 to 9.0 Hertz, 20 to 40 microvolt rhythm with reactivity to eye opening and eye closure demonstrated. Occasional sharp waves are noted throughout the left temporal recording representing less than 10% of activity. This is a normal variant for age. Generalized background is theta slowing consistent with drowsiness is demonstrated. Vertex transients, K-complexes and sleep spindles further characterize early stages of sleep. Photic stimulation is performed without appreciable change in the background rhythm. Hyperventilation was performed with good patient effort demonstrating symmetrically increased amplitudes and slowing. No EKG changes are noted. Impression: Normal routine EEG in the awake, drowsy and sleep states for age. EEG from 2017 IMPRESSION: Abnormal EEG capturing wakefulness to stage II sleep due to: 1. Independent left frontotemporal greater than right frontotemporal sharp waves in sleep. 2. Slow background in wakefulness CLINICAL CORRELATION: The presence of left frontotemporal greater than right frontotemporal sharp waves in sleep suggests a partial mechanism of epilepsy in a person with seizures. Slow background activity correlates with bilateral hemispheric dysfunction and may be seen in degenerative diseases, metabolic and toxic encephalopathies, head injuries. EEG Long from 11/20/20 Impression: This EEG shows evidence of cortical dysfunction maximum in the left temporal region. There is also evidence of a moderate diffuse encephalopathy. No definite epileptiform discharges or EEG seizures were seen during this recording. 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 CSF AD biomarkers negative. 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 myChart message me the name of the dizziness medication you were prescribed by Dr. Ramos 3. Please schedule a MRI Brain repeat scan with volumetric software- to rule out other changes that might give us a clue about the dizziness since your last scan in 2019 - can call [phone] or schedule at the [email or web address] desk 4. Please ambulate with caution! Follow up in about 3 months to recheck on things or sooner if tests are done earlier I spent a total of 40 minutes on the date of service which included [id number] patient care and counseling and educating the patient/spouse. Laisha Lizarraga, MSN, BUSSER-C, CNRN CC: 1. Chema Mas MD, (fax) [phone] Brandan Liane 11/13/2022 1:01 PM Signed Lauren Alcaraz is a 82 year old year old woman accompanied by: spouse. Do you have any changes or new concerns you would like to address at the visit today? I have had dizziness for the last couple of months. Vital Signs: BP 113/69 Pulse 77 Wt 49.9 kg (110 lb) LMP (LMP Unknown) BMI 22.22 kg/m? Laisha Lizarraga, MANUFACTURING SPECIALIST.VENDING MACHINE ATTENDANT 11/13/2022 1:56 PM Signed Notify me once you've done the blood work in the beginning of November 17. myChart message me the name of the dizziness medication you were prescribed by Dr. Ramos 3. Please schedule a MRI Brain repeat scan with volumetric software- to rule out other changes that might give us a clue about the dizziness since your last scan in 2019 - can call [phone] or schedule at the [email or web address] desk 4. Please ambulate with caution! Follow up in about 3 months to recheck on things or sooner if tests are done earlier Allergies As of Date: 11/13/2022 Noted Allergy Reaction PROPOXYPHENE N-ACETAMINOPHEN 02/08/2006 14 - Other: See Comments Comments: hallucinations ADHESIVE TAPE-SILICONES 02/23/2015 16 - Unknown Comments: Other reaction(s): Other (comments) Not sure which type of tape but red skin. AMBIEN (ZOLPIDEM) 08/09/2020 1 - Mental Status Change DOXYCYCLINE 08/09/2020 11 - Vomiting LAMICTAL (LAMOTRIGINE) 08/09/2020 7 - Swelling Comments: Lips swelling LATEX 02/14/2021 2 - Rash MOXIFLOXACIN 08/09/2020 1 - Mental Status Change PERCOCET (OXYCODONE-ACETAMINOPHEN)08/09/2020 1 - Mental Status Change PROPOXYPHENE 11/07/2008 1 - Mental Status Change 14 - Other: See Comments Comments: Hallucinations Includes Darvocet ADHESIVE 02/23/2015 14 - Other: See Comments Comments: Not sure which type of tape but red skin. DICLOFENAC SODIUM 07/17/2015 14 - Other: See Comments Comments: Topical gel resulted in hand swelling. DIPHENHYDRAMINE 05/20/2016 16 - Unknown 14 - Other: See Comments OXYCODONE 06/28/2020 1 - Mental Status Change Date Reviewed: 11/13/2022 Reviewed by: Laisha Lizarraga APRN.VENDING MACHINE ATTENDANT - Fully Assessed Reason for Visit: Established Patient [175] Primary Visit Diagnosis: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) [F03.90] Other Visit Diagnoses:History of complex partial epilepsy [Z86.69] Gait instability [R26.81] Multiple falls [R29.6] Physical deconditioning [R53.81] Depression, unspecified depression type [F32.A] Anxiety [F41.9] Dizziness [R42] Imbalance [R26.89] Order(s):MRI BRAIN W QUANT WO IVCON [[id number]] Order #: [id number] FUTURE MRI 3D POST PROCESSING [[id number]] Order #: [id number] FUTURE [] LORazepam (ATIVAN) 0.5 mgTake 1 tablet by mouth one time only for 1 dose. Please take 30-40 mins before MRIDisp: 1 tabletRfl: 0 Prescriptions as of 11/14/2022 - famotidine (PEPCID) 10 mg tablet Take 10 mg by mouth twice daily. - moxifloxacin HCl (AVELOX ORAL) Take by mouth. - DODEX 1,000 mcg/mL inject 1 milliliter ( 1000 MCG ) intramuscularly Every Month - ammonium lactate (LAC-HYDRIN) 12 % lotion - BD ECLIPSE LUER-BOZENA 3 mL 23 x 1 - MULTIVITAMIN ORAL Take by mouth once daily. - OXYGEN, HOME THERAPY, 2 L/min by Nasal Cannula route daily at bedtime. - albuterol (PROVENTIL) 2.5 mg /3 mL (0.083 %) nebulizer solution as needed. - Lactobacillus acidophilus (PROBIOTIC) 10 billion cell cap once daily. - pramipexole (MIRAPEX) 0.5 mg tablet Take 0.5 mg by mouth three times daily. - vortioxetine (TRINTELLIX) 20 mg tablet Take 20 mg by mouth once daily. - atorvastatin (LIPITOR) 40 mg tablet Take 40 mg by mouth once daily. - ELIQUIS 5 mg tab(s) BID - levothyroxine (SYNTHROID) 25 mcg tablet Take 25 mcg by mouth once daily. - memantine (NAMENDA) 10 mg tablet - MYRBETRIQ 50 mg Tb24 Taking 2 tabs once daily - lacosamide (VIMPAT) 100 mg tab Take 1 tablet by mouth twice daily for 180 days. - nitroglycerin sublingual (NITROQUICK) 0.4 mg SL tablet as needed. - aspirin, enteric coated (ASPIRIN, ENTERIC COATED) 81 mg EC tablet Take 81 mg by mouth once daily. - tolterodine ER (DETROL LA) 4 mg 24 hr capsule Take 4 mg by mouth once daily. - denosumab (PROLIA SUBCUTANEOUS) Inject 1 Dose subcutaneously once every 6 months. Last injection November 2020 Problem List As Of Date 11/13/2022 Noted Resolved 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) [*12/06/2020 History of complex partial epilepsy [Z86.69] 12/06/2020 Abnormality of gait [R26.9] 12/06/2020 Multiple falls [R29.6] 12/06/2020 Weakness [R53.1] 04/13/2021 Other instructions from your clinician: Notify me once you've done the blood work in the beginning of November 2. myChart message me the name of the dizziness medication you were prescribed by Dr. Ramos 3. Please schedule a MRI Brain repeat scan with volumetric software- to rule out other changes that might give us a clue about the dizziness since your last scan in 2019 - can call [phone] or schedule at the [facility] desk 4. Please ambulate with caution! Follow up in about 3 months to recheck on things or sooner if tests are done earlier Visit Notes: >> Brandan Beverly FriNov 13, 2022 1:00 PM Status: Signed Lauren Alcaraz is a 82 year old year old woman accompanied by: spouse. Do you have any changes or new concerns you would like to address at the visit today? I have had dizziness for the last couple of months. Vital Signs: BP 113/69 Pulse 77 Wt 49.9 kg (110 lb) LMP (LMP Unknown) BMI 22.22 kg/m? Prescriptions ordered this encounter Disp Refills Start End LORAZEPAM 0.5 MG TABLET 1 ta* 0 11/13/2022 11/13/2022 Route: ORAL Sig: Take 1 tablet by mouth one time only for 1 dose. Please take 30-40 mins before MRI Disposition: Return in about 3 months (around 02/13/2023), or or sooner, for [facility] Follow-up and Disposition History for Encounter Date Provider Department Center 11/13/2022 [id number] Encounter Status:Closed by LAISHA LIZARRAGA on 11/14/22 PROGRESS Observed: 11/13/2022 7:56 AM Status: COMPLETED Source: [facility] REPOSITORY HNO ID: [id number] Author: Laisha Lizarraga APRN.VENDING MACHINE ATTENDANT Service: ? Author Type: Nurse Practitioner Type: Progress Notes Filed: 11/14/2022 11:58 AM Note Text: Lauren Alcaraz 1940 [address] [facility] [address] November 13, 2022 [facility] FOLLOW-UP NOTE Accompanied by: spouse Misael MERCY Lauren Alcaraz is a pleasant 81 year old female seen today for a follow up visit. 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 CSF AD biomarkers negative. Patient was last seen on 07/25/22, at which time: -- fall recently w/ L shoulder injury and required stitches- CTH negative -- cognition maybe slightly better in interim, better than when she had COVID/falls/hospitalizations -- recently went to [facility]pite [facility] for ~1 week which went well -- still have caregiver at home 5 days/week for 6 hrs/day Today, Lauren and her spouse Misael return for a routine follow up visit. She feels that her walking has been much better-- has been doing PT in the interim then transferred to a hop strainer, and is not using a wheelchair today. She is using a Rollator today. Her goal is to walk unassisted. She has also been going to Cognitive/Speech therapy and feels it may be helping- someone down in the [place] area linked w/ her other therapies She has been having dizziness. It's described as not necessarily positional- based on her noticing that it doesn't seem to change w/ position. There's no clear pattern to when she experiences it. She was once given a medication for dizziness but it didn't really help. They are not sure what it was. There is no spinning/vertiginous sensation. There is a mild lightheadedness sensation She will have a seat or take a break from what she's doing It doesn't happen predictably right after standing from sitting She did have orthostatic VS taken at her PCPs office which were reportedly not revealing They have also been able to get her into a normal bed now Other interval history: Falls: positive Sleep: described as normal, feels rested upon waking ADL's requires assistance with all ADLs Driving?: No History reviewed. No pertinent past medical history. SOCIAL HISTORY Social History Tobacco Use Smoking status: Never Smokeless tobacco: Never Substance Use Topics Alcohol use: Yes Comment: Weekly 1-2 drinks Drug use: Never Social History reviewed by Laisha Lizarraga APRN.[facility]ERT PATIENT-ENTERED DATA Patient-Reported 11/06/2022 07/18/2022 Where are you currently living? Home / Private residence Home / Private residence Are you using any community resources to help care for yourself? 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 Yes Yes Did you receive help completing this questionnaire? Yes Yes If you received help, could you have completed this questionnaire on your own? Yes Yes Activities of Daily Living (ADL) No flowsheet data found. PROMIS-10 PROMIS 10 11/06/2022 07/18/2022 In general, would you say your health is: Good Good In general, would you say your quality of life is: Good Very good In general, how would you rate your physical health? Good Good In general, how would you rate your mental health, including your mood and your ability to think? Good Good In general, how would you rate your satisfaction with your social activities and relationships? Good Good To what extent are you able to carry out your everyday physical activities such as walking, climbing stairs, carrying groceries, or moving a chair? Moderately A little In general, please rate how well you carry out your usual social activities and roles. (This includes activities at home, at work and in your community, and responsibilities as a parent, child, spouse, employee, friend, etc.) Good Good How would you rate your pain on average? 7 4 How would you rate your fatigue on average? Mild Mild How often have you been bothered by emotional problems such as feeling anxious, depressed or irritable? Sometimes Rarely PROMIS Adult Short Form-Global Health Score (Physical) 39.8 (Fair) 39.8 (Fair) PROMIS Adult Short Form-Global Health Score (Mental) 43.5 (Good) 48.3 (Very Good) PHQ-9 PHQ-9 All Questions 11/06/2022 07/18/2022 Little interest or pleasure in doing things 0 0 Feeling down, depressed, or hopeless 0 1 Trouble falling or staying asleep, or sleeping too much 0 0 Feeling tired or having little energy 1 1 Poor appetite or overeating 0 0 Feeling bad about yourself - or that you are a failure or have let yourself or your family down 0 0 Trouble concentrating on things, such as reading the newspaper or watching television 1 1 Moving or speaking so slowly that other people could have noticed. Or the opposite - being so fidgety or restless that you have been moving around a lot more than usual 0 1 Thoughts that you would be better off , or of hurting yourself in some way 0 0 PHQ-9 Score 2 4 (0-4) minimal depression (5-9) mild depression (10-14) moderate depression (15-19) moderately severe depression (20-27) severe depression Full History of PHQ-9 Scores PHQ-9 Score 11/06/2022 2 07/18/2022 4 04/08/2022 4 01/17/2022 14 11/07/2021 16 10/04/2021 13 11/29/2020 8 10/23/2020 2 Sleep 11/06/2022 07/18/2022 What is your average total sleep time per night over the past 4 weeks? 8 Hours 8 Hours What is your average total sleep time during the day over the past 4 weeks? 1 Hours 1 Hours Have you been diagnosed with sleep apnea? Yes Yes Are you currently using positive airway pressure (PAP) therapy? No No Insomnia Severity Index 11/06/2022 07/18/2022 Difficulty falling asleep 0 0 Difficulty staying asleep 0 0 Problem waking up too early 1 0 Satisfied/dissatisfied with current sleep pattern 1 0 Sleep interferes with daily functions 1 0 Sleep problems noticeable to others 0 0 Worried/distressed about current sleep problems 0 0 Score 3 0 Caregiver-Reported 11/06/2022 07/18/2022 Are you the person who cares for the patient the majority of the time? (Primary Caregiver) Yes Yes How are you related to the patient? Spouse Spouse Do you currently reside with the patient? Yes Yes Are you currently employed outside the home? No No What is your gender? Male Male Please enter your [age] Dementia Severity Rating Scale (DSRS) No flowsheet data found. OBJECTIVE Current Outpatient Medications on File Prior to Visit Medication Sig OXYGEN, HOME THERAPY, 2 L/min by Nasal Cannula route daily at bedtime. albuterol (PROVENTIL) 2.5 mg /3 mL (0.083 %) nebulizer solution as needed. Lactobacillus acidophilus (PROBIOTIC) 10 billion cell cap once daily. pramipexole (MIRAPEX) 0.5 mg tablet Take 0.5 mg by mouth three times daily. vortioxetine (TRINTELLIX) 20 mg tablet Take 20 mg by mouth once daily. atorvastatin (LIPITOR) 40 mg tablet Take 40 mg by mouth once daily. ELIQUIS 5 mg tab(s) BID levothyroxine (SYNTHROID) 25 mcg tablet Take 25 mcg by mouth once daily. memantine (NAMENDA) 10 mg tablet MYRBETRIQ 50 mg Tb24 Taking 2 tabs once daily lacosamide (VIMPAT) 100 mg tab Take 1 tablet by mouth twice daily for 180 days. nitroglycerin sublingual (NITROQUICK) 0.4 mg SL tablet as needed. aspirin, enteric coated (ASPIRIN, ENTERIC COATED) 81 mg EC tablet Take 81 mg by mouth once daily. tolterodine ER (DETROL LA) 4 mg 24 hr capsule Take 4 mg by mouth once daily. denosumab (PROLIA SUBCUTANEOUS) Inject 1 Dose subcutaneously once every 6 months. Last injection November 2020 No current facility-administered medications on file prior to visit. Vital Signs: BP 113/69 Pulse 77 Wt 49.9 kg (110 lb) LMP (LMP Unknown) BMI 22.22 kg/m? General Medical Exam: General: Well-nourished appearing, NAD. Awake, alert. HEENT: Normocephalic/atraumatic. Neurological Exam: Cognition: alert and cooperative MoCA: Not assessed today (Previous score: 6/30 in 10/2021.) Orientation: alert Appearance: normal grooming Eye contact: normal Facial expression: appropriate Psychomotor: normal Speech/Language: unremarkable -can name, repeat with no dysarthria Mood: pretty good most of the time Affect: pleasant PDW:no SI:no Self-injurious behavior:no Emotional state: calm, cooperative Thought Process: logical Thought Content: appropriate Hallucinations: none Judgment: intact Insight: good Cranial Nerves II: VFFTC, PERRLA with gaze directed as instructed III, IV, : EOMI with smooth pursuit and normal saccades +mild R eye exotropia +nystagmus with gaze to R V: Facial sensation is intact bilaterally with normal jaw closure VII: Eye closure and smile normal, no facial droop or flattening of nasal labial fold VIII: Hearing is normal to finger rub bilaterally IX, X: Uvula elevates in the midline XI: Sternocleidomastoid and trapezius have normal strength XII: Tongue protrudes in the midline Motor Strength is 5/5 in upper and lower extremities Finger strength is normal bilaterally Normal muscle bulk with no fasciculations No resting tremor No bradykinesia, no abnormal movements Horizontal arm extension: +mild postural/intention tremor bilaterally Pronator drift: negative Coordination Cerebellar: no dysmetria or dysdiadochokinesis, normal pronation/supination Cerebrospinal tract: Toe tap normal bilaterally, Leg raise normal bilaterally Finger fine motor: Tap w/ thumb normal bilaterally, Flex./ext. normal bilaterally Finger to nose: good Posture and Gait Able to stand independently without use of walker- able to ambulate w/ Rollator- improvement from prior Diagnostic Results: MRI Brain from 11/01/19 1. No acute findings. No evidence of acute infarct, mass or hemorrhage. No unusual enhancement. 2. The exam is notable for prominent atrophy and prominent white matter changes, most consistent with chronic small vessel ischemic disease. I do not appreciate a major change when compared to a prior study from last Year. EEG from 2007 DATE: June 15, 2008 NO: [id number] Indication: Question of seizure Medications: None given Recording conditions: Presumably routine EEG. This is a routine EEG performed during the awake, drowsy and sleep states. Length of study: 23 minutes and 52 seconds EEG activity: The predominant posterior resting frequency is a rhythmic, symmetric 8.0 to 9.0 Hertz, 20 to 40 microvolt rhythm with reactivity to eye opening and eye closure demonstrated. Occasional sharp waves are noted throughout the left temporal recording representing less than 10% of activity. This is a normal variant for age. Generalized background is theta slowing consistent with drowsiness is demonstrated. Vertex transients, K-complexes and sleep spindles further characterize early stages of sleep. Photic stimulation is performed without appreciable change in the background rhythm. Hyperventilation was performed with good patient effort demonstrating symmetrically increased amplitudes and slowing. No EKG changes are noted. Impression: Normal routine EEG in the awake, drowsy and sleep states for age. EEG from 2017 IMPRESSION: Abnormal EEG capturing wakefulness to stage II sleep due to: 1. Independent left frontotemporal greater than right frontotemporal sharp waves in sleep. 2. Slow background in wakefulness CLINICAL CORRELATION: The presence of left frontotemporal greater than right frontotemporal sharp waves in sleep suggests a partial mechanism of epilepsy in a person with seizures. Slow background activity correlates with bilateral hemispheric dysfunction and may be seen in degenerative diseases, metabolic and toxic encephalopathies, head injuries. EEG Long from 11/20/20 Impression: This EEG shows evidence of cortical dysfunction maximum in the left temporal region. There is also evidence of a moderate diffuse encephalopathy. No definite epileptiform discharges or EEG seizures were seen during this recording. 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 CSF AD biomarkers negative. 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 [employer] message me the name of the dizziness medication you were prescribed by Dr. Ramos 3. Please schedule a MRI Brain repeat scan with volumetric software- to rule out other changes that might give us a clue about the dizziness since your last scan in 2019 - can call [phone] or schedule at the [facility] desk 4. Please ambulate with caution! Follow up in about 3 months to recheck on things or sooner if tests are done earlier I spent a total of 40 minutes on the date of service which included [id number] patient care and counseling and educating the patient/spouse. Laisha Lizarraga, MSN, BUSSER-C, CNRN CC: 1. Chema Mas MD, (fax) [phone] ALLERGIES DATE TYPE / CODE NAME / CODE REACTION SEVERITY SOURCE 02/14/2021 DRUG INGREDI/4196 34473(SNOMED CT) LATEX RASH [facility] 08/09/2020 DRUG INGREDI/4195 79996(SNOMED CT) ZOLPIDEM Mental Chg [facility] 08/09/2020 DRUG INGREDI/4195 86335(SNOMED CT) DOXYCYCLINE Vomiting [facility] 08/09/2020 DRUG INGREDI/4195 33952(SNOMED CT) LAMOTRIGINE SWELLING [facility] 08/09/2020 DRUG INGREDI/4195 37698(SNOMED CT) MOXIFLOXACIN Mental Chg [facility] 08/09/2020 DRUG/[id number] 03(SNOMED CT) OXYCODONE-ACETAMINOPHEN Mental Chg [facility] 06/28/2020 DRUG INGREDI/4195 00607(SNOMED CT) OXYCODONE Mental Chg [facility] 05/20/2016 DRUG INGREDI/4195 39765(SNOMED CT) DIPHENHYDRAMINE UNKNOWN [facility] 07/17/2015 DRUG INGREDI/4195 65888(SNOMED CT) DICLOFENAC SODIUM OTHER: SEE C [facility] 02/23/2015 DRUG/[id number] 03(SNOMED CT) ADHESIVE TAPE-SILICONES UNKNOWN [facility] 02/23/2015 Drug Class/891894 003(SNOMED CT) ADHESIVE OTHER: SEE C [facility] 11/07/2008 DRUG INGREDI/4195 58814(SNOMED CT) PROPOXYPHENE Mental Chg [facility] 02/08/2006 DRUG/[id number] 03(SNOMED CT) PROPOXYPHENE N-ACETAMINOPHEN OTHER: SEE C [facility] ENCOUNTERS ADMIT/DISCHARGE ACCOUNT NUMBER ADMITTING ENCOUNTER CLASS LOC ATION SOURCE 07/28/2023/ 3 [id number] [facility] HospitalBuild ing:STOP [facility] 06/16/2023/ 3 [id number] [facility] 03/14/2023/ 3 [id number] [facility] 12/04/2022/ 3 [id number] [facility]:RMTB [facility] 11/13/2022/ 3 [id number] [facility] PAYERS ENCOUNTER GUARANTOR PAYER SUBSCRIBER SOURCE 07/28/2023 Primary Insurance:MEDICARE A AND BPolicy Number: [id number] Date:4118-74-39Irbo Name:Grazyna Vaughan CARNIVALEDOB: [id number] [id number] [place] [address] 07/28/2023 Secondary Insurance:UMRPolicy Number: [id number] Date:1300-73-75Fahz Name:Smiley MISAEL Lizzie CARNIVALEDOB: [id number] [place] [address] 06/16/2023 Primary Insurance:MEDICARE A AND BPolicy Number: [id number] Date:4809-16-48Upds Name:Grazyna Vaughan CARNIVALEDOB: [id number] [id number] [place] [address] 06/16/2023 Secondary Insurance:[facility] UMR CHOICE PLUSPolicy Number: [id number] Date:0932-49-42Qcoe Name:Tawanda MEJIA CARNIVALEDOB: [id number] [address] [address] [facility] 03/14/2023 Primary Insurance:MEDICARE A AND BPolicy Number: [id number] Date:7271-87-01Cbxu Name:Grazyna Vaughan CARNIVALEDOB: [id number] [address] [address] [facility] 03/14/2023 Secondary Insurance:[facility] UMR CHOICE PLUSPolicy Number: [id number] Date:0574-92-85Sdrt Name:Tawanda MEJIA CARNIVALEDOB: [id number] [id number] [place] [address] 12/04/2022 Primary Insurance:MEDICARE A AND BPolicy Number: [id number] Date:3698-75-55Yhaw Name:Grazyna VARGASIVALEDOB: [id number] [address] [address] [facility] 12/04/2022 Secondary Insurance:[facility] UMR CHOICE PLUSPolicy Number: [id number] Date:9416-15-65Zbjb Name:Tawanda MEJIA CARNIVALEDOB: [id number] [address] 11/13/2022 Primary Insurance:MEDICARE A AND BPolicy Number: [id number] Date:4953-69-14Zyum Name:Grazyna VARGASIVALEDOB: [id number] [address] [address] [facility] 11/13/2022 Secondary Insurance:[facility] CHOICE PLUSPolicy Number: [id number] Date:2103-55-80Xavc Name:Tawanda MEJIA CARNIVALEDOB: [id number] [address] [address] [facility]
== END | disposition home or self-care (01) ==
LOC: LAB 15:38
PROVIDERS: PCP Internal Medicine; Referring Provider Internal Medicine; Visit Provider Internal Medicine
DX: E03.9 Hypothyroidism, unspecified (principal)
CPT/HCPCS: 36415; 84439; 84443; 84481

== ENCOUNTER → 2023-12-04 | Outpatient (CLI) | payer MEDICARE, OTHER, SELFPAY ==
--- NOTE | 2023-12-04 14:52 | CDU_ITS ---
Reason For Study: Dizziness Rt. Velocities/BP Lt. Velocities/BP Dist CCA 76.1/15.7 cm/sec. Dist CCA 76.4/18.8 cm/sec. Mid CCA 53.5/7.2 cm/sec. Mid CCA 77.3/19.7 cm/sec. Prox CCA 90.4/14.2 cm/sec. Prox CCA 72.9/12.7 cm/sec. Dist ICA 71.4/25.1 cm/sec. Dist ICA 73.1/23.0 cm/sec. Mid ICA 88.4/25.1 cm/sec. Mid ICA 67.6/21.4 cm/sec. Prox ICA 74.3/20.4 cm/sec. Prox ICA 82.5/17.1 cm/sec. Rt. ICA/CCA = 1.7. Lt. ICA/CCA = 1.1. Prox ECA 74.3/8.1 cm/sec. Prox ECA 70.7/6.9 cm/sec. Rt. Vert. 52.3/14.2 cm/sec. Lt. Vert. 44.1/8.4 cm/sec. Right Extracranial There is homogeneous, smooth atherosclerotic plaque noted in the right common carotid artery. There is heterogeneous, irregular atherosclerotic plaque noted in the right internal carotid artery. There is heterogeneous, irregular atherosclerotic plaque noted in the right external carotid artery. Antegrade flow is noted in the right vertebral artery. Left Extracranial There is homogeneous, smooth atherosclerotic plaque noted in the left common carotid artery. There is heterogeneous, irregular atherosclerotic plaque noted in the left internal carotid artery. There is homogeneous, smooth atherosclerotic plaque noted in the left external carotid artery. Antegrade flow is noted in the left vertebral artery. Procedure Carotid Duplex [id number]. This is a Carotid Duplex examination using B-mode, color flow and specral Doppler. The exam was diagnostic. The study was technically difficult. Exam performed in department. VL/Carotid Duplex Ultrasound Interpretation Summary Mild (<50%) stenosis right extracranial internal carotid. Mild (<50%) stenosis left extracranial internal carotid. Patent and antegrade vertebrals bilaterally. Ordering Physician: Yokasta Perry M.D. Referring Physician: Tamiko Ku Performed By: Aj Cantor RVT
== END | disposition home or self-care (01) ==
LOC: CVS 14:51
PROVIDERS: PCP Internal Medicine; Referring Provider Nurse Practitioner Gerontology; Visit Provider Nurse Practitioner Gerontology
DX: R42 Dizziness and giddiness (principal)
CPT/HCPCS: 93880

== ENCOUNTER → 2024-02-12 | Outpatient (CLI) | payer MEDICARE, OTHER, SELFPAY ==
[2024-02-12 12:53] LABS: Vitamin B12 1092 pg/mL (211-911)
[2024-02-12 13:07] LABS: ALB/GLOB Ratio 1.1 RATIO (0.9-2.4); AST(SGOT) 24 U/L (15-37); Alanine Aminotransfer ALT/SGPT 31 U/L (13-56); Albumin, Serum 3.7 g/dL (3.2-5.0); Alkaline Phosphatase 76 U/L (45-117); Anion Gap 7 (5-15); BUN 24 mg/dL (7-18); BUN/Creat Ratio 21.2 RATIO (10-20); Calcium,Total 9.6 mg/dL (8.5-10.1); Chloride 103 mmol/L (98-107); Creatinine, Serum 1.13 mg/dL (0.55-1.02); EST Glomerular Filtration Rate 49 mL/min (>60); Est Glom Filt Rate - Afr Amer 59 mL/min (>60); Free T3 1.8 pg/mL (2.18-3.98); Globulin 3.5 g/dL (2.2-4.2); Glucose 106 mg/dL (74-106); Potassium 3.6 mmol/L (3.5-5.1); Protein, Total 7.2 g/dL (6.4-8.2); Sodium Level 140 mmol/L (136-145); T4 Free Direct 1.12 ng/dL (0.76-1.46); Thyroid Stim Hormone (TSH) 1.45 uIU/mL (0.358-3.74)
== END | disposition home or self-care (01) ==
PROVIDERS: PCP Internal Medicine; Referring Provider Internal Medicine; Visit Provider Internal Medicine
DX: E03.9 Hypothyroidism, unspecified (principal); R42 Dizziness and giddiness; I10 Essential (primary) hypertension; M62.89 Other specified disorders of muscle; R53.81 Other malaise; G25.81 Restless legs syndrome; E53.8 Deficiency of other specified B group vitamins
CPT/HCPCS: 36415; 80053; 82607; 84439; 84443; 84481

== ENCOUNTER → 2024-03-01 | Outpatient (CLI) | payer MEDICARE, OTHER, SELFPAY | END | disposition home or self-care (01) | LOC: PSN 12:58 | PROVIDERS: PCP Internal Medicine; Referring Provider Internal Medicine Critical Care Medicine; Visit Provider Internal Medicine Critical Care Medicine | DX: J47.9 Bronchiectasis, uncomplicated (principal); R09.02 Hypoxemia | CPT/HCPCS: 94060; 94726; 94729 ==

== ENCOUNTER → 2024-03-16 | Outpatient (CLI) | payer MEDICARE, OTHER, SELFPAY ==
--- NOTE | 2024-03-16 10:58 | RAD_ITS ---
STUDY: X-RAY - RIGHT FOOT CLINICAL: Female, 83 years old. SPRAIN TECHNIQUE: 3 view(s) of the foot. COMPARISON: None. FINDINGS: There is a plantar calcaneal spur. Normal visualized subtalar, talonavicular, calcaneocuboid, tarsal and tarsometatarsal articulations. Flattening of the head of the second metatarsal suggests a possible old injury such as Freiberg''s disease. There is degenerative arthrosis of the metatarsophalangeal joint of the hallux . The patient is status post prior bunionectomy. Normal tibial and fibular sesamoid bones. Normal interphalangeal joint of the great toe. Normal phalanges of the great toe. Normal second through fifth metatarsophalangeal joints. Normal interphalangeal joints and phalanges of the lesser toes. The soft tissue structures are unremarkable. RAD/Foot min 3 Views IMPRESSION: No acute fracture seen. 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 Electronically Signed: Sam Mac MD at 11:20 EDT ,
== END | disposition home or self-care (01) ==
LOC: MTRAD 10:57
PROVIDERS: PCP Internal Medicine; Referring Provider Physician Assistant; Visit Provider Physician Assistant
DX: S93.601A Unspecified sprain of right foot, initial encounter (principal); X58.XXXA Exposure to other specified factors, initial encounter
CPT/HCPCS: 73630

== ENCOUNTER → 2024-03-18 | Outpatient (CLI) | payer MEDICARE, OTHER, SELFPAY ==
[2024-03-18 13:14] LABS: Anion Gap 5 (5-15); BUN 26 mg/dL (7-18); BUN/Creat Ratio 24.5 RATIO (10-20); Calcium,Total 9.3 mg/dL (8.5-10.1); Chloride 105 mmol/L (98-107); Creatinine, Serum 1.06 mg/dL (0.55-1.02); EST Glomerular Filtration Rate 53 mL/min (>60); Est Glom Filt Rate - Afr Amer 64 mL/min (>60); Glucose 133 mg/dL (74-106); Potassium 4.2 mmol/L (3.5-5.1); Sodium Level 138 mmol/L (136-145)
== END | disposition home or self-care (01) ==
PROVIDERS: PCP Internal Medicine; Referring Provider Internal Medicine; Visit Provider Internal Medicine
DX: R79.89 Other specified abnormal findings of blood chemistry (principal)
CPT/HCPCS: 36415; 80048

== ENCOUNTER → 2024-04-09 | Outpatient (CLI) | payer MEDICARE, OTHER, SELFPAY | END | disposition home or self-care (01) | LOC: PSN 11:59 | PROVIDERS: PCP Internal Medicine; Referring Provider Nurse Practitioner Acute Care; Visit Provider Nurse Practitioner Acute Care | DX: Z46.89 Encounter for fitting and adjustment of other specified devices (principal) | CPT/HCPCS: 94667 ==

== ENCOUNTER 2024-04-16 12:00 | Outpatient (RCR) | payer MEDICARE, OTHER, SELFPAY ==
--- NOTE | 2023-12-31 09:26 | HP.PTEVAL_ITS ---
Patient's Visit Information Visit Information Visit Information: SHELDON ALAN is a 83 year old F referred to Physical Therapy by Dr. Yokasta Perry MD with a diagnosis of dizzyness. Date of Evaluation: 12/31/23 Physical Therapist: Vincent Amado, DPT, OCS, CSCS Visit Plan Frequency: 2x /Week Duration: 4-6 Weeks Plan: 2x/week x 4-6(started weekly for vestibular positional then 2x/week for balance once dizzyness better.) Start with posoitional checks and oculomotor/head movement ex to HEP then balance for vestibular, weight shifts and progression to HEP, funcitonal balance Subjective Subjective: Dizzyness for a long time. Years. Richard put her on meclizine and dizzyness has not improved. Feels unstable and uses wh walker. Not on me clizine anymore. Recently had more episodes of dizzyness. Sees Juan Miguel arauz during the week. Dizzy feeling is described as things moving around and feels unstable. Has fallen off the chair one time. Looking up makes her spinning and movement and it lasts 5 minutes. Walking depth perception in the dark is unsteady Lying down at night makes her dizzy but transiently. has fallen out of bed in the past, has step into bed. Uses rollator to get around for years. Has cane that she may use sometimes with [email or web address] surfing. Sleep is great. 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 Spends day training at with Juan Miguel, walks outside with rollator. Avoids steps. Avoids grass due to unsteady ness. Training strength and balance. Hobbies: Enjoys writing and crafting. Lives with on one floor, Basic ADLs dress, bathe and shower I. not sure what started this. Objective Objective: Walks in mod I with rollator, slow but safe. Trasnfers bed and chair slow but I. Hesitant to shift weight without rollator and very small steps, scared of falling. Has kyphoscoliosis in upper back which limits movement and cervical ROM ext. Steps are reciprocal with 2 railings today. balance and weight shift are poor and requires rollator. UE AROM WFL, cervical aROM WFL except extension which is only to about 5 degrees from neutral. sensation LE WNL ot gross light touch. strength is 4-/5 LE and able to heel raise and toe raise at walker. Unsteady feeling standing wihtou AD but able, scared. No foot movement due to fear. - L hakllpike shahbaz. + R hallpike shahbaz for possible up torsional nystagmus but obvious eye discomfort and spinning and slight nausea after. Treated with R madhuri and then negative test after but felt nauseous. Balance/Special Test Scores Functional Gait Assessment Score: 17 % Disability: 43.3400 CATSIB Score (Max score 120 seconds): 85 Dizziness Score: 60 Goals Goal 1:: lie down and sit up without dizzyness Goal Time Frame: 4-6 Weeks Goal 2:: Pt feel spinning is 90% better. Goal Time Frame: 4-6 Weeks Goal 3:: I appropriate balance ex to help maximize balance Goal Time Frame: 4-6 Weeks Goal 4:: FGA score 21/30 to reduce fall risk Goal Time Frame: 4-6 Weeks Goal 5:: 20 or better DHI Goal Time Frame: 4-6 Weeks Rehabilitation Potential Physical Therapy Diagnosis: possible BPPV and resulting balance deficits limiting comfortable functions Rehabilitation Potential: Fair Anticipated Interventions Patient/Client Instruction: Educate patient on: Condition and Plan of Care For the Purpose of:: To increase tolerance to activity/condition/position, To improve gait and locomotor functions and To improve safety with gait Therapeutic Exercise to Include: Balance training and Gait and locomotor training Comment: posoitional and vestibular ex For the Purpose of:: To improve muscle performance and motor function, To increase tolerance to activity/condition/position, To improve gait and locomotor functions and To improve safety Text: Thank you for the opportunity to evaluate your patient. For Medicare and Medicare HMO plans, please review the plan of care and approve it. It will need to be FAXED BACK to us at [phone] for Medicare purposes. For Medicare only, by signing this I certify the plan of care. Please let me know if there are questions or concerns regarding this plan of care. Physician Signature: Date:
--- NOTE | 2024-02-04 16:01 | HP.PTREVAL ---
Re-Evaluation Intro: Dr. Yokasta Perry MD, It has been my pleasure to treat SHELDON ALAN over the last 9 visits for dizzyness. Please see the progress note below for an update on the physical therapy plan of care! Subjective Subjective: Doing balance exercises with Juan Miguel as animal attendants and trainers and at home. Feeling steadier. No spinning and able to lie down and get up easily. Using walker to get around. Wants to benefit from more exercises. Saw [facility] for eval today and will be sent to [facility]. Gets ex at home in once per week due to fatigue on the other days. Objective Objective/Function: improved FGA and spinning is all but gone. Feels steadier and scoring better.Goals appropriate for 4 more weeks with new goal. Fair prognosis. Plan Plan Plan: 2x/week for 4 more weeks to mid February for 1. funcitonal FW weight shift(step up, sit to stand postural rows and FW weight shift to HEP as tolerates. 2. General Home based strength to help fight fatigue and get HEP in more frequently Ensure safety and confidence with current HEP Balance/Gait/Functional tests Balance/Special Test Scores Functional Gait Assessment Score: 21 % Disability: 30.0000 CATSIB Score (Max score 120 seconds): 85 Dizziness Score: 26 30 Second Chair Rise Test Seconds: 6 Goals Goals Goal 1:: lie down and sit up without dizzyness Goal Time Frame: 4-6 Weeks Goal Progress: Goal Met Goal 2:: Pt feel spinning is 90% better. Goal Time Frame: 4-6 Weeks Goal Progress: 50% Goal 3:: I appropriate balance ex to help maximize balance Goal Time Frame: 4-6 Weeks Goal Progress: Progressing Goal 4:: FGA score 21/30 to reduce fall risk Goal Time Frame: 4-6 Weeks Goal 5:: 20 or better DHI Goal Time Frame: 4-6 Weeks Goal Progress: Progressing Goal 6:: 10 30 SSTS test to show improved strength/mobility Goal Time Frame: 2-4 Weeks Goal Progress: NEW GOAL Anticipated Interventions Anticipated Interventions Patient/Client Instruction: Educate patient on: Condition and Plan of Care For the Purpose of:: To increase tolerance to activity/condition/position, To improve gait and locomotor functions and To improve safety with gait Therapeutic Exercise to Include: Balance training and Gait and locomotor training Comment: posoitional and vestibular ex For the Purpose of:: To improve muscle performance and motor function, To increase tolerance to activity/condition/position, To improve gait and locomotor functions and To improve safety Re-Evaluation Ending Re-evaluation ending: Please do not hesitate to contact me at [phone] by phone or if you have questions or concerns regarding this new plan of care! Sincerely, Vincent Amado, DPT, OCS, CSCS
--- NOTE | 2024-03-04 13:48 | HP.PTREVAL_ITS ---
Re-Evaluation Intro: Dr. Yokasta Perry MD, It has been my pleasure to treat SHELDON ALAN over the last 15 visits for dizzyness. Please see the progress note below for an update on the physical therapy plan of care! Subjective Subjective: Workouts in PT are going well. Doesn't know if it is helping with steadiness but vertigo feels better. Will go to [facility] tomorrow to see student specialist. Will look at LB scoilosis. Wondering if they can help with scoliosis being bent over. Wants breathing and steadiness to be things that can be improved with this doctor. says that she still needs lots of help with steadiness and not seeing huge improvements on that. Wants to continue via in clinic 2x/weeka nd small engine trainer 3x/week. Objective Objective/Function: Pt has poor confidence as she feels she needs my hand on gait belt for FGA but I am not doing anything. Standing up taller for longer but still hunches in chair and with ambulating moreso without wh walker. improved FGA + 2 and 30 SSTS +3 but still 2 from normal.Measurable improvement on funcitonal tests and no dizzyness show improvement and appropriate to cotninue new POC with fair prognosis with compliance. Plan Plan Plan: 2x/week for 4 weeks...please work on general strength exercises to add to her HEp on days of f from [place], work on progfression of FW weight shift funcitonally and home balance ex to tolerance. Please work on confidence with gait without AD in clinic with bending , turning, moving head. Balance/Gait/Functional tests Balance/Special Test Scores Functional Gait Assessment Score: 23 % Disability: 23.3400 CATSIB Score (Max score 120 seconds): 85 Dizziness Score: 26 30 Second Chair Rise Test Seconds: 9 Goals Goals Goal 1:: 24 on FGA and confident to take it with gait belt and no hands on assist. Goal Time Frame: 4-6 Weeks Goal Progress: NEW GOAL Goal 2:: Pt feel spinning is 90% better. Goal Time Frame: 4-6 Weeks Goal Progress: 50% Goal 3:: I appropriate balance ex to help maximize balance Goal Time Frame: 4-6 Weeks Goal Progress: Goal Met Goal 4:: FGA score 21/30 to reduce fall risk Goal Time Frame: 4-6 Weeks Goal Progress: Goal Met Goal 5:: general home strength to add to balance HEP Goal Time Frame: 4-6 Weeks Goal Progress: NEW GOAL Goal 6:: 10 30 SSTS test to show improved strength/mobility Goal Time Frame: 2-4 Weeks Goal Progress: Progressing, approp Anticipated Interventions Anticipated Interventions Patient/Client Instruction: Educate patient on: Condition and Plan of Care For the Purpose of:: To increase tolerance to activity/condition/position, To im prove gait and locomotor functions and To improve safety with gait Therapeutic Exercise to Include: Balance training and Gait and locomotor training Comment: posoitional and vestibular ex For the Purpose of:: To improve muscle performance and motor function, To increase tolerance to activity/condition/position, To improve gait and locomotor functions and To improve safety Re-Evaluation Ending Re-evaluation ending: Please do not hesitate to contact me at [phone] by phone or if you have questions or concerns regarding this new plan of care! Sincerely, Vincent Amado, DPT, OCS, CSCS
--- NOTE | 2024-04-02 15:55 | HP.PTREVAL_ITS ---
Re-Evaluation Intro: Dr. Yokasta Perry MD, It has been my pleasure to treat SHELDON ALAN over the last 19 visits for dizzyness. Please see the progress note below for an update on the physical therapy plan of care! Subjective Subjective: Doing better. Feels stronger than a month ago. Using L leg more confidently. Trying to use L leg more often and starting with it. Backing up feels better on L leg. has taken a few falls in the last month. R leg gave out while she was walking a few times. Sometimes she goes without walker in the house. [facility] won't address it. Dr. Perry does not know about it. Is in pain 10/10 pain earlier in the week and got epidural. HEP: doing heel raises, step adn recover, foam, squats. bands are neglected. Juan Miguel still 2-3x/week. Objective Objective/Function: 30 sSTS is same as a month ago FGA is -1 from a month ago. Wh walker is still appropriate due to R leg giving out at unknown times. Otherwise balance may be good enough to go without it but it is helpful for her back also. Lacks the objective improvement. And educated that it is time to have more specific goals or try to wean from therapy to I HEP / exercises with the resident athletic trainer. Plan Plan Plan: weekly x 4 then every other week x 4 weeks til end of May to ensure smooth trasntion to HEp and resident athletic trainer. Please focus on weight shifting adn LE strength progression in therapy. Therapist to chat with resident athletic trainer with pt approval and work to a full resident athletic trainer program. New goal set with fair prognosis with patient motivation and desire to meet it and get comfortable with I workout. Balance/Gait/Functional tests Balance/Special Test Scores Functional Gait Assessment Score: 22 % Disability: 26.6700 CATSIB Score (Max score 120 seconds): 85 Dizziness Score: 26 30 Second Chair Rise Test Seconds: 9 Goals Goals Goal 1:: 24 on FGA and confident to take it with gait belt and no hands on assist. Goal Time Frame: 4-6 Weeks Goal Progress: Not Progressing Goal 2:: Pt feel spinning is 90% better. Goal Time Frame: 4-6 Weeks Goal Progress: Not Progressing Goal 3:: Pt have confidence in her HEP/resident athletic trainer ex regimen to continue to make progress or lack digression outside of therapy. Goal Time Frame: 6-8 Weeks Goal Progress: NEW GOAL Goal 4:: FGA score 21/30 to reduce fall risk Goal Time Frame: 4-6 Weeks Goal Progress: Goal Met Goal 5:: general home strength to add to balance HEP Goal Time Frame: 4-6 Weeks Goal Progress: Goal Met Goal 6:: 10 30 SSTS test to show improved strength/mobility Goal Time Frame: 2-4 Weeks Goal Progress: Progressing, approp Anticipated Interventions Anticipated Interventions Patient/Client Instruction: Educate patient on: Condition and Plan of Care For the Purpose of:: To increase tolerance to activity/condition/position, To improve gait and locomotor functions and To improve safety with gait Therapeutic Exercise to Include: Balance training and Gait and locomotor training Comment: posoitional and vestibular ex For the Purpose of:: To improve muscle performance and motor function, To increase tolerance to activity/condition/position, To improve gait and locomotor functions and To improve safety Re-Evaluation Ending Re-evaluation ending: Please do not hesitate to contact me at [phone] by phone or if you have questions or concerns regarding this new plan of care! Sincerely, Vincent Amado, DPT, OCS, CSCS
--- NOTE | 2024-04-30 08:19 | HP.PTDCSUM_ITS ---
Discharge Summary D/C summary: It has been my pleasure to treat SHELDON ALAN referred by Dr. Yokasta Perry MD, with the diagnosis of dizzyness for a total of 21 visit(s). Discharge Date: Please see the following information for a summary of their discharge status. Subjective Subjective: Pt states she was feeling dizzy earlier but is feeling better after getting some more sodium in her diet today. Overall Improvement % Improvement: 50 Objective Objective/Function: Pt needing some encouragement since she is not having as much strength as usual in BLE. Pt having some significant increases of unsteadiness with gait and balance training today. Goals Goal 1:: 24 on FGA and confident to take it with gait belt and no hands on assist. Goal Progress: Not Progressing Goal 2:: Pt feel spinning is 90% better. Goal Progress: Not Progressing Goal 3:: Pt have confidence in her HEP/lion trainer ex regimen to continue to make progress or lack digression outside of therapy. Goal Progress: NEW GOAL Goal 4:: FGA score 21/30 to reduce fall risk Goal Progress: Goal Met Goal 5:: general home strength to add to balance HEP Goal Progress: Goal Met Goal 6:: 10 30 SSTS test to show improved strength/mobility Goal Progress: Progressing, approp Plan Plan: Pt called and has been sick recently and not feeling like working out. wishes to cancel all visits and be discharged. D/C Information d/c sentence: If there are questions or concerns regarding this patient's physical therapy, please feel free to call me at [phone]. Thank you for the referral of this patient. Sincerely, Vincent Amado, DPT, OCS, CSCS Balance/Gait/Functional tests Balance/Special Test Scores Functional Gait Assessment Score: 22 % Disability: 26.6700 CATSIB Score (Max score 120 seconds): 85 Dizziness Score: 26 30 Second Chair Rise Test Seconds: 9 Improvement % Improvement: 50
== END 2024-04-16 19:00 | disposition home or self-care (01) ==
LOC: PT 12:00
PROVIDERS: PCP Internal Medicine; Referring Provider Internal Medicine; Visit Provider Internal Medicine
DX: R42 Dizziness and giddiness (principal); R26.89 Other abnormalities of gait and mobility
CPT/HCPCS: 97110; 97112; 97116; 97162; 97530

== ENCOUNTER 2024-04-17 06:55 | Emergency (ER) | payer MEDICARE, OTHER, SELFPAY ==
[2024-04-17 06:55] VITALS: BP 151/96; PULSE 62; RESP 19; TEMP 36.4; O2SAT 92; BMI 23.6
--- NOTE | 2024-04-17 07:11 | EX.ED.DYSGE1 ---
HPI History of Present Illness Chief Complaint: Wound Informant: patient Onset/Context/Timing Onset: Yesterday Context: Gradual Onset Timing: Continuous Quality: Burning Location: Left lower back Worsened by: Nothing Relieved by: Nothing Narrative Narrative: Patient presents with rash to her lower back that began last night. Patient states she noted some redness and pain to her left lower back last evening. Patient states she has a history of shingles. Patient did not feel similar to previous episode of shingles. Patient describes her pain as burning. Patient states nothing makes it better and nothing makes it worse. Patient denies any fevers or chills. Patient denies any nausea or vomiting. Patient denies any paresthesias or weakness. [facility] Medical History Contusion of right foot Kyphoscoliosis deformity of spine Bee sting Lumbar contusion Contusion of thoracic wall Pain of left lower extremity Contact with and (suspected) exposure to other viral communicable diseases Contusion of left wrist Left elbow contusion Contusion of left shoulder Scalp contusion Injury of left elbow Injury of left shoulder Presence of stent in coronary artery (~1989) Atherosclerotic heart disease of [place] coronary artery without angina pectoris Essential hypertension Influenza A Health care maintenance Falls frequently Cancer Depression Dementia Walker as ambulation aid Arthritis Bladder disease Low iron DVT (deep venous thrombosis) High cholesterol Restless legs Back pain TIA (transient ischemic attack) Seizures Difficulty swallowing Gastric reflux Non-smoker Asthma Shortness of breath on exertion Hx of echocardiogram History of stress test Hypertension Cardiology follow-up encounter History of heart attack Hypertension aquired autoimmune encephalopathy h/o back surgery Heart disease Dementia Partial complex seizures Home Medications ?Medication ?Instructions ?Recorded ?Last Taken ?Type L.acidophil-L.casei-B.bifid-B.longum-FOS 1 cap PO DAILY Supplement 09/02/21 10/05/21 History 2 billion cell-50 mg capsule (Probiotic Blend) aspirin 81 mg tablet,delayed 81 mg PO DAILY 01/10/22 Unknown History release (Adult Aspirin Regimen) d-mannose 500 mg capsule 500 mg PO DAILY 06/07/22 Unknown History famotidine 10 mg tablet 10 mg PO BID 06/07/22 Unknown History multivitamin 1 tab PO DAILY 06/07/22 Unknown History mirabegron 50 mg tablet,extended 50 mg PO QHS Check with primary 01/29/23 Unknown History release 24 hr (Myrbetriq) doctor albuterol sulfate 2.5 mg/3 mL 2.5 mg (3 mL) inhalation Q6H PRN 04/07/23 Unknown Rx (0.083 %) solution for nebulization Sob &/Or Wheezing #180 mL syringes BD ECLIPSE 04/11/23 Unknown History gabapentin 100 mg capsule 100 mg PO DAILY PRN restless 06/09/23 Unknown Rx leg(s) #90 caps atorvastatin 40 mg tablet See Rx Instructions .Route 07/28/23 Unknown Rx .COMPLEX #90 tabs latanoprost 0.005 % eye drops 1 drp ophthalmic (eye) DAILY 08/13/23 Unknown History (Xalatan) memantine 10 mg tablet 10 mg PO BID Alzheimer's #180 tabs 09/18/23 Unknown Rx furosemide 20 mg tablet 10 mg PO DAILY PRN 10/08/23 Unknown History levothyroxine 50 mcg tablet 50 mcg PO DAILY Thyroid #90 tabs 10/15/23 Unknown Rx donepezil 5 mg tablet (Aricept) 10 mg (2 x 5 mg) PO DAILY #90 tabs 11/12/23 Unknown Rx nitroglycerin 0.4 mg sublingual 0.4 mg sublingual Q5-15M PRN chest 11/12/23 Unknown Rx tablet pain #25 tabs apixaban 5 mg tablet (Eliquis) 5 mg PO BID #180 tabs 12/08/23 Unknown Rx cyanocobalamin (vitamin B-12) 1,000 mcg IM QMONTH #10 mL 12/08/23 Unknown Rx 1,000 mcg/mL injection solution (Dodex) denosumab 60 mg/mL subcutaneous 60 mg subcut [id number] #1 mL 02/18/24 Unknown Rx syringe (Prolia) BD Sry/needle eclips See Rx Instructions IM .COMPLEX 02/23/24 Unknown Rx #12 ea azelastine 137 mcg (0.1 %) nasal intranasal 03/16/24 Unknown History spray cetirizine 10 mg capsule (Zyrtec) 10 mg PO DAILY PRN 03/16/24 Unknown History diazepam 2 mg tablet (Valium) 2 mg PO QHS PRN anxiety #1 TAB 03/16/24 Unknown Rx fluticasone propionate 50 1 spray intranasal DAILY 03/16/24 Unknown History mcg/actuation nasal spray,suspension (Allergy Relief (fluticasone)) lacosamide 100 mg tablet (Vimpat) 100 mg PO BID #30 tabs 03/31/24 Unknown Rx cyanocobalamin (vitamin B-12) 1,000 mcg IM QMONTH #10 mL 04/01/24 Unknown Rx 1,000 mcg/mL injection solution PEP device #1 ea 04/06/24 Unknown Rx pramipexole 0.5 mg tablet 0.5 mg PO BID #180 tabs 04/16/24 Unknown Rx vortioxetine 20 mg tablet 20 mg PO DAILY DEPRESSION #90 tabs 04/16/24 Unknown Rx (Trintellix) acyclovir 800 mg tablet 800 mg PO 5X/DAY #35 TABLETS 04/17/24 Unknown Rx Allergy/AdvReac Type Severity Reaction Status Date / Time doxycycline Allergy Mild Vomiting Verified 04/17/24 06:56 oxycodone (From Percocet) Allergy Mild Confusion Verified 04/17/24 06:56 acetaminophen (From Allergy Other Verified 04/17/24 06:56 Darvocet-N) lamotrigine (From Lamictal) Allergy Lip Verified 04/17/24 06:56 Swelling latex Allergy Rash Verified 04/17/24 06:56 moxifloxacin HCl (From Allergy Other Verified 04/17/24 06:56 Avelox) propoxyphene napsylate (From Allergy Other Verified 04/17/24 06:56 Darvocet-N) zolpidem tartrate (From AdvReac Other Verified 04/17/24 06:56 Ambien) Family History (Reviewed 04/05/24 @ 14:39 by Sandra Vincent WASTE MACHINE OPERATOR, WASTE MACHINE OPERATOR-C) Mother CVA (cerebral vascular accident) Arthritis Father Myocardial infarction, Onset Age: 40 Alcoholism Hypertension Sister Anemia Grandmother Bowel disease Osteoporosis Ovarian cancer Surgical History History of hernia surgery Presence of coronary angioplasty implant and graft (~1989) History of hammer toe correction History of lumbar laminectomy History of carpal tunnel release History of tonsillectomy and adenoidectomy History of lumpectomy of left breast History of cardiac catheterization History of esophagogastroduodenoscopy (EGD) Hx of colonoscopy Hx of ventral hernia repair Hx of cataract extraction History of laryngoscopy History of appendectomy H/O kyphoplasty Social History household members: spouse housing: house Smoking Status: Never smoker alcohol intake: current alcohol intake frequency: a few times a week Alcohol type: wine substance use type: does not use caffeine: Yes Type: coffee Number of servings: 1 what type of physical activity do you participate in: other details: PT 3x weekly frequency: 3-4 times per week do you feel safe at home: Yes ROS ROS ED Constitutional Constitutional ED: Denies chills or fever(s) Eyes Eyes: Denies blurry vision or change in vision ENT ENT ED: Denies rhinorrhea or sore throat Cardiovascular Cardiovascular: Denies chest pain or palpitations Respiratory/Chest Respiratory/Chest: Denies cough or dyspnea Gastrointestinal Gastrointestinal: Denies nausea or vomiting Genitourinary Genitourinary ED: Denies dysuria or hematuria Musculoskeletal Musculoskeletal: Reports back pain; Denies neck pain Integumentary Reports rash; Denies abscess Neurologic Neurologic: Denies headache(s) or weakness Allergic/Immunologic Allergic/Immunologic ED: Denies mouth swelling or urticaria EXAM Physical Exam Const Vital Signs: 04/17/24 06:55 Temperature 97.6 F L Temperature Source Temporal Pulse Rate 62 Respiratory Rate 19 H Blood Pressure 151/96 H Blood Pressure Mean 114 Pulse Ox 92 Oxygen Delivery Method Room Air Positive well nourished and well developed General Appearance ED: well developed and NAD HEENT Reports moist mucous membranes Neck supple and no JVD Resp normal respiratory effort and clear to auscultation bilaterally Cardio regular rate and regular rhythm GI non-tender and non-distended Palpation: soft Extremity normal to inspection General Extremety ED: Negative for tenderness Neuro oriented x3, CN's II-XII intact bilaterally and no sensory deficits noted Sensorium / Orientation: alert Motor Exam: strength 5/5 throughout Psych mental status grossly normal Skin Skin Narrative: There is a patchy erythematous rash over the left lower lumbar area in a dermatomal distribution. There is no discharge or drainage. There is no crusting noted. There are no petechia noted. There is no involvement of mucous membranes. There is no involvement of the palms or soles. MDM MDM MDM Narrative Medical decision making narrative: Patient was advised that this does appear to be consistent with shingles. Patient was given a dose of acyclovir here. Patient was given a prescription for acyclovir. Patient was instructed to follow-up with her primary care physician in 5 to 7 days. Patient understood and was agreeable with the plan. All questions were answered. Discharge Plan Triage Chief Complaint: Wound ED Provider: Vincent Morris Dx/Rx/DC Orders Clinical Impression: Varicella zoster, Essential hypertension Instructions: ED Shingles (Herpes Zoster) Prescriptions: New acyclovir 800 mg tablet 800 mg PO 5X/DAY Qty: 35 0RF No Action Myrbetriq 50 mg tablet extended release 24 hr 50 mg PO QHS aspirin [Adult Aspirin Regimen] 81 mg tablet,delayed release (DR/EC) 81 mg PO DAILY multivitamin Tablet 1 tab PO DAILY famotidine 10 mg tablet 10 mg PO BID d-mannose 500 mg capsule 500 mg PO DAILY albuterol sulfate 2.5 mg /3 mL (0.083 %) solution for nebulization 2.5 mg inhalation Q6H PRN (Reason: Sob &/Or Wheezing) Qty: 180 6RF latanoprost [Xalatan] 0.005 % drops 1 drp ophthalmic (eye) DAILY furosemide 20 mg tablet 10 mg PO DAILY PRN nitroglycerin 0.4 mg tablet, sublingual 0.4 mg sublingual Q5-15M PRN (Reason: chest pain) Qty: 25 3RF Rx Instructions: do not exceed 3 doses per episode donepezil [Aricept] 5 mg tablet 10 mg PO DAILY Qty: 90 3RF cyanocobalamin (vitamin B-12) 1,000 mcg/mL solution 1,000 mcg IM QMONTH Qty: 10 0RF Rx Instructions: Can be administered at [facility] azelastine 137 mcg (0.1 %) spray,non-aerosol intranasal Patient Comments: [NO ORIGINAL SIG] fluticasone propionate [Allergy Relief (fluticasone)] 50 mcg/actuation spray,suspension 1 spray intranasal DAILY Rx Instructions: administer into each nostril Zyrtec 10 mg capsule 10 mg PO DAILY PRN Probiotic Blend 2 billion cell-50 mg Capsule 1 cap PO DAILY (DME) syringes BD ECLIPSE See Rx Instructions .Route .MEDSUPPLY Rx Instructions: Bd SYR/leticia Eclipse 3ml #5708 gabapentin 100 mg capsule 100 mg PO DAILY PRN (Reason: restless leg(s)) Qty: 90 1RF atorvastatin 40 mg tablet See Rx Instructions .ROUTE .COMPLEX Qty: 90 3RF Dose Instruction: TAKE 1 TABLET DAILY Rx Instructions: TAKE 1 TABLET DAILY memantine 10 mg tablet 10 mg PO BID Qty: 180 3RF levothyroxine 50 mcg tablet 50 mcg PO DAILY Qty: 90 3RF cyanocobalamin (vitamin B-12) [Dodex] 1,000 mcg/mL solution 1,000 mcg IM QMONTH Qty: 10 1RF Rx Instructions: 1 mL vials. Eliquis 5 mg tablet 5 mg PO BID Qty: 180 3RF Prolia 60 mg/mL syringe 60 mg subcut [id number] Qty: 1 5RF BD Sry/needle eclips See Rx Instructions IM .COMPLEX Qty: 12 0RF Rx Instructions: intramuscularly; 3ml #3578 uses 1 a month diazepam [Valium] 2 mg tablet 2 mg PO QHS PRN (Reason: anxiety) Qty: 1 0RF lacosamide [Vimpat] 100 mg tablet 100 mg PO BID Qty: 30 5RF (DME) PEP device See Rx Instructions .ROUTE .MEDSUPPLY Qty: 1 0RF Rx Instructions: with training Trintellix 20 mg tablet 20 mg PO DAILY Qty: 90 3RF pramipexole 0.5 mg tablet 0.5 mg PO BID Qty: 180 3RF Primary Care Provider: Yokasta Perry Referrals: Yokasta Perry MD [Primary Care Provider] - Print Language: Jamaican
[2024-04-17 07:50] VITALS: BP 147/83; PULSE 60; RESP 18; TEMP 36.8; O2SAT 97
[2024-04-17] MEDS: Acyclovir 800 MG Tablet PO (07:51)
== END 2024-04-17 08:05 | disposition home or self-care (01) ==
LOC: ED 07:31
PROVIDERS: Emergency Provider Emergency Medicine; PCP Internal Medicine; Visit Provider Emergency Medicine
DX: B02.1 Zoster meningitis (principal); F03.90 Unspecified dementia, unspecified severity, without behavioral disturbance, psychotic disturbance, mood disturbance, and anxiety; I10 Essential (primary) hypertension; E78.00 Pure hypercholesterolemia, unspecified; I25.10 Atherosclerotic heart disease of native coronary artery without angina pectoris; Z86.73 Personal history of transient ischemic attack (TIA), and cerebral 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; Z79.82 Long term (current) use of aspirin; K21.9 Gastro-esophageal reflux disease without esophagitis; Z79.899 Other long term (current) drug therapy; Z79.01 Long term (current) use of anticoagulants; Z79.51 Long term (current) use of inhaled steroids; J45.909 Unspecified asthma, uncomplicated; F32.A Depression, unspecified; I25.2 Old myocardial infarction; Z98.61 Coronary angioplasty status; Z98.49 Cataract extraction status, unspecified eye; Z90.49 Acquired absence of other specified parts of digestive tract
CPT/HCPCS: 99282

== ENCOUNTER 2024-06-07 08:49 | Emergency (ER) | payer MEDICARE, OTHER, SELFPAY ==
[2024-06-07 08:51] VITALS: BP 175/95; PULSE 72; RESP 16; TEMP 36.5; O2SAT 98; BMI 23.1
--- NOTE | 2024-06-07 09:24 | CT_ITS ---
STUDY: CT BRAIN WITHOUT CONTRAST REASON FOR EXAM: Female, 83 years old. Headache after trauma RADIATION DOSAGE (If Supplied By Facility): CTDIvol = ( 44.99 ) mGy, DLP = ( 829.85 ) mGycm TECHNIQUE: Transaxial CT imaging of the brain was performed without administration of intravenous contrast material. Individualized dose optimization techniques were used for this CT. COMPARISON: MR brain from 06/04/2023 FINDINGS: Normal soft tissue structures. Normal calvarium. There is mild cerebral atrophy with widening of the extra-axial spaces and ventricular dilatation. Normal white matter tracts of the cerebral hemispheres. Normal basal ganglia and thalami. Normal brainstem. Normal cerebellum. There is no intracranial hemorrhage. There are no findings of an acute ischemic infarction. Normal visualized paranasal sinuses. CT/Brain/Head without Contrast IMPRESSION: Chronic involutional changes of the brain. No acute hemorrhage. Electronically Signed: Darin Harper MD at 10:17 EDT ,
--- NOTE | 2024-06-07 09:26 | EX.ED.GENINJ ---
HPI History of Present Illness Chief Complaint: Fall Informant: patient and spouse/S.O. Narrative Narrative: 83-year-old female presenting to the emergency department chief complaint of falls. Patient states that she has had problems recently with her legs buckling causing her to fall. Yesterday this happened 3 times. She has an upcoming appointment with orthopedics to discuss this buckling which she discussed with her primary care doctor. She states that during the fall she struck her head on the ground and notes soreness on the top of her head. She notes soreness in the posterior aspect of her left shoulder onto the scapular spine. She also notes that she has chronic low back pain and sees pain management. She states that she believes she twisted her low back during the fall as it is more sore today. She denies any radicular symptoms. No loss of consciousness. No external bleeding. She is on apixaban. She denies neck pain. [facility] Medical History Open wound of right lower extremity Contusion of right foot Kyphoscoliosis deformity of spine Bee sting Lumbar contusion Contusion of thoracic wall Pain of left lower extremity Contact with and (suspected) exposure to other viral communicable diseases Contusion of left wrist Left elbow contusion Contusion of left shoulder Scalp contusion Injury of left elbow Injury of left shoulder Presence of stent in coronary artery (~1989) Atherosclerotic heart disease of [place] coronary artery without angina pectoris Essential hypertension Influenza A Health care maintenance Falls frequently Cancer Depression Dementia Walker as ambulation aid Arthritis Bladder disease Low iron DVT (deep venous thrombosis) High cholesterol Restless legs Back pain TIA (transient ischemic attack) Seizures Difficulty swallowing Gastric reflux Non-smoker Asthma Shortness of breath on exertion Hx of echocardiogram History of stress test Hypertension Cardiology follow-up encounter History of heart attack Hypertension aquired autoimmune encephalopathy h/o back surgery Heart disease Dementia Partial complex seizures Home Medications ?Medication ?Instructions ?Recorded ?Last Taken ?Type L.acidophil-L.casei-B.bifid-B.longum-FOS 1 cap PO DAILY Supplement 09/02/21 10/05/21 History 2 billion cell-50 mg capsule (Probiotic Blend) aspirin 81 mg tablet,delayed 81 mg PO DAILY 01/10/22 Unknown History release (Adult Aspirin Regimen) d-mannose 500 mg capsule 500 mg PO DAILY 06/07/22 Unknown History famotidine 10 mg tablet 10 mg PO BID 06/07/22 Unknown History multivitamin 1 tab PO DAILY 06/07/22 Unknown History mirabegron 50 mg tablet,extended 50 mg PO QHS Check with primary 01/29/23 Unknown History release 24 hr (Myrbetriq) doctor albuterol sulfate 2.5 mg/3 mL 2.5 mg (3 mL) inhalation Q6H PRN 04/07/23 Unknown Rx (0.083 %) solution for nebulization Sob &/Or Wheezing #180 mL syringes BD ECLIPSE 04/11/23 Unknown History gabapentin 100 mg capsule 100 mg PO DAILY PRN restless 06/09/23 Unknown Rx leg(s) #90 caps latanoprost 0.005 % eye drops 1 drp ophthalmic (eye) DAILY 08/13/23 Unknown History (Xalatan) memantine 10 mg tablet 10 mg PO BID Alzheimer's #180 tabs 09/18/23 Unknown Rx furosemide 20 mg tablet 10 mg PO DAILY PRN edema 10/08/23 Unknown History levothyroxine 50 mcg tablet 50 mcg PO DAILY Thyroid #90 tabs 10/15/23 Unknown Rx donepezil 5 mg tablet (Aricept) 10 mg (2 x 5 mg) PO DAILY #90 tabs 11/12/23 Unknown Rx nitroglycerin 0.4 mg sublingual 0.4 mg sublingual Q5-15M PRN chest 11/12/23 Unknown Rx tablet pain #25 tabs apixaban 5 mg tablet (Eliquis) 5 mg PO BID #180 tabs 12/08/23 Unknown Rx denosumab 60 mg/mL subcutaneous 60 mg subcut [id number] #1 mL 02/18/24 Unknown Rx syringe (Prolia) BD Sry/needle eclips See Rx Instructions IM .COMPLEX 02/23/24 Unknown Rx #12 ea azelastine 137 mcg (0.1 %) nasal 2 spray intranasal 03/16/24 Unknown History spray cetirizine 10 mg capsule (Zyrtec) 10 mg PO DAILY PRN allergy symptoms 03/16/24 Unknown History fluticasone propionate 50 1 spray intranasal DAILY 03/16/24 Unknown History mcg/actuation nasal spray,suspension (Allergy Relief (fluticasone)) cyanocobalamin (vitamin B-12) 1,000 mcg IM QMONTH #10 mL 04/01/24 Unknown Rx 1,000 mcg/mL injection solution PEP device #1 ea 04/06/24 Unknown Rx pramipexole 0.5 mg tablet 0.5 mg PO BID #180 tabs 04/16/24 Unknown Rx vortioxetine 20 mg tablet 20 mg PO DAILY DEPRESSION #90 tabs 04/16/24 Unknown Rx (Trintellix) lacosamide 100 mg tablet (Vimpat) 100 mg PO BID #180 tabs 04/22/24 Unknown Rx atorvastatin 40 mg tablet See Rx Instructions .Route 05/17/24 Unknown Rx .COMPLEX #90 tabs sulfamethoxazole 800 1 tab PO BID 10 days #20 tabs 06/05/24 Unknown Rx mg-trimethoprim 160 mg tablet (Bactrim DS) donepezil 10 mg tablet 10 mg PO DAILY 06/07/24 Unknown History Allergy/AdvReac Type Severity Reaction Status Date / Time doxycycline Allergy Mild Vomiting Verified 06/07/24 08:50 oxycodone (From Percocet) Allergy Mild Confusion Verified 06/07/24 08:50 acetaminophen (From Allergy Other Verified 06/07/24 08:50 Darvocet-N) lamotrigine (From Lamictal) Allergy Lip Verified 06/07/24 08:50 Swelling latex Allergy Rash Verified 06/07/24 08:50 moxifloxacin HCl (From Allergy Other Verified 06/07/24 08:50 Avelox) propoxyphene napsylate (From Allergy Other Verified 06/07/24 08:50 Darvocet-N) zolpidem tartrate (From AdvReac Other Verified 06/07/24 08:50 Ambien) Family History Mother CVA (cerebral vascular accident) Arthritis Father Myocardial infarction, Onset Age: 40 Alcoholism Hypertension Sister Anemia Grandmother Bowel disease Osteoporosis Ovarian cancer Surgical History History of hernia surgery Presence of coronary angioplasty implant and graft (~1989) History of hammer toe correction History of lumbar laminectomy History of carpal tunnel release History of tonsillectomy and adenoidectomy History of lumpectomy of left breast History of cardiac catheterization History of esophagogastroduodenoscopy (EGD) Hx of colonoscopy Hx of ventral hernia repair Hx of cataract extraction History of laryngoscopy History of appendectomy H/O kyphoplasty Social History household members: spouse housing: house Smoking Status: Never smoker alcohol intake: current alcohol intake frequency: a few times a week Alcohol type: wine substance use type: does not use caffeine: Yes Type: coffee Number of servings: 1 what type of physical activity do you participate in: other details: PT 3x weekly frequency: 3-4 times per week do you feel safe at home: Yes ROS ROS ED Constitutional Constitutional ED: Denies chills, fever(s) or weight loss Eyes Eyes: Denies change in vision or diplopia ENT ENT ED: Denies ear pain, rhinorrhea or sore throat Cardiovascular Cardiovascular: Denies chest pain, orthopnea, palpitations or racing heartbeat Respiratory/Chest Respiratory/Chest: Denies cough, dyspnea or orthopnea Gastrointestinal Gastrointestinal: Denies abdominal pain, diarrhea, nausea or vomiting Genitourinary Genitourinary ED: Denies dysuria, hematuria or urinary frequency Musculoskeletal Musculoskeletal: Reports back pain and other Details: Left shoulder pain ; Denies arthralgias or myalgias Integumentary Denies abscess or rash Neurologic Neurologic: Reports headache(s); Denies weakness Psychiatric Psychiatric: Denies anxiety, depression, suicidal ideation or suicidal thoughts Endocrine Endocrinology: Denies polydipsia, polyphagia or polyuria Allergic/Immunologic Allergic/Immunologic ED: Denies mouth swelling, tongue swelling or urticaria EXAM Physical Exam Narrative Exam Narrative: Elderly female significantly kyphotic laying in the bed under multiple blankets and a puffy coat on top of her gown. Const Vital Signs: 06/07/24 08:50 06/07/24 08:51 06/07/24 10:50 Temperature 97.7 F L Temperature Source Temporal Pulse Rate 72 78 Respiratory Rate 16 16 Respiratory Effort Normal Respiratory Depth Normal Respiratory Pattern Normal Blood Pressure 175/95 H 124/78 H Blood Pressure Mean 121 93 Pulse Ox 98 97 Oxygen Delivery Method Room Air Room Air Room Air 06/07/24 10:50 Temperature 97.8 F Temperature Source Pulse Rate 89 Respiratory Rate 14 Respiratory Effort Respiratory Depth Respiratory Pattern Blood Pressure 131/64 H Blood Pressure Mean 86 Pulse Ox 98 Oxygen Delivery Method Positive well nourished and well developed General Appearance ED: well developed and NAD HEENT Reports normocephalic, head/scalp atraumatic and moist mucous membranes HEENT Narrative: I do not appreciate any external scalp hematoma contusion abrasion laceration or bony depression. She notes tenderness when I palpate the right high parietal vertex scalp. Eyes PERRL and EOMs intact bilaterally Neck full ROM, no lymphadenopathy, supple and no JVD Resp normal respiratory effort and clear to auscultation bilaterally Cardio regular rate, regular rhythm and no murmurs GI normal to inspection, nondistended, normoactive bowel sounds and non-tender Palpation: soft Back/Spine no CVA tenderness and normal ROM Back/Spine Narrative: Mild tenderness to palpation in the lumbar paraspinal musculature. No midline tenderness. Patient does have a significant kyphosis. Extremity normal to inspection General Extremety ED: Negative for edema General Extremity: Negative for edema Neuro oriented x3 and CN's II-XII intact bilaterally Sensorium / Orientation: alert Motor Exam: strength 5/5 throughout Psych mental status grossly normal Mood & Affect: Negative for depressed or tearful Skin no rashes or lesions noted and no wounds MDM MDM MDM Narrative Medical decision making narrative: Differential diagnosis includes intracranial hemorrhage skull fracture shoulder fracture tendon injury ligamentous injury dislocation subluxation lumbar myofascial strain fracture solid organ injury CT the brain was obtained which does not demonstrate any fracture or intracranial hemorrhage. My independent interpretation of plain films of the left shoulder is no obvious fracture or dislocation. The abdominal exam is benign. Clinically I think she has a lumbar myofascial strain. She does not appear with radicular symptoms. I think the patient can be discharged home. Would recommend using her rollator with ambulation possibly having assist when she gets up to move. Tylenol for pain heat as needed return if worsening or concerns History & Record Review Discussion w/independent historian: Patient Radiography Diagnostic Testing: Clinical Impression(s) from Imaging Studies Brain CT 06/07/24 09:24 IMPRESSION: Chronic involutional changes of the brain. No acute hemorrhage. Electronically Signed: Darin Harper MD at 10:17 EDT Reading Location ID and State: [facility] / [place] , Service support , Shoulder X-Ray 06/07/24 09:35 IMPRESSION: Degenerative arthrosis, no demonstrated fracture or suspicious osseous lesion Electronically Signed: Darin Harper MD at 9:45 EDT , Discharge Plan Triage Chief Complaint: Fall ED Provider: Moody Emery Dx/Rx/DC Orders Clinical Impression: Contusion of left shoulder, Head injury, Fall, Anticoagulated Instructions: ED Head Injury (Adult) Prescriptions: No Action Myrbetriq 50 mg tablet extended release 24 hr 50 mg PO QHS aspirin [Adult Aspirin Regimen] 81 mg tablet,delayed release (DR/EC) 81 mg PO DAILY multivitamin Tablet 1 tab PO DAILY famotidine 10 mg tablet 10 mg PO BID d-mannose 500 mg capsule 500 mg PO DAILY albuterol sulfate 2.5 mg /3 mL (0.083 %) solution for nebulization 2.5 mg inhalation Q6H PRN (Reason: Sob &/Or Wheezing) Qty: 180 6RF latanoprost [Xalatan] 0.005 % drops 1 drp ophthalmic (eye) DAILY furosemide 20 mg tablet 10 mg PO DAILY PRN (Reason: edema) nitroglycerin 0.4 mg tablet, sublingual 0.4 mg sublingual Q5-15M PRN (Reason: chest pain) Qty: 25 3RF Rx Instructions: do not exceed 3 doses per episode donepezil [Aricept] 5 mg tablet 10 mg PO DAILY Qty: 90 3RF cyanocobalamin (vitamin B-12) 1,000 mcg/mL solution 1,000 mcg IM QMONTH Qty: 10 0RF Rx Instructions: Can be administered at [facility] azelastine 137 mcg (0.1 %) spray,non-aerosol 2 spray intranasal Patient Comments: [NO ORIGINAL SIG] fluticasone propionate [Allergy Relief (fluticasone)] 50 mcg/actuation spray,suspension 1 spray intranasal DAILY Rx Instructions: administer into each nostril Zyrtec 10 mg capsule 10 mg PO DAILY PRN (Reason: allergy symptoms) lacosamide [Vimpat] 100 mg tablet 100 mg PO BID Qty: 180 3RF sulfamethoxazole-trimethoprim [Bactrim DS] 800-160 mg tablet 1 tab PO BID 10 Days Qty: 20 0RF Probiotic Blend 2 billion cell-50 mg Capsule 1 cap PO DAILY donepezil 10 mg tablet 10 mg PO DAILY (DME) syringes BD ECLIPSE See Rx Instructions .Route .MEDSUPPLY Rx Instructions: Bd SYR/leticia Eclipse 3ml #5712 gabapentin 100 mg capsule 100 mg PO DAILY PRN (Reason: restless leg(s)) Qty: 90 1RF memantine 10 mg tablet 10 mg PO BID Qty: 180 3RF levothyroxine 50 mcg tablet 50 mcg PO DAILY Qty: 90 3RF Eliquis 5 mg tablet 5 mg PO BID Qty: 180 3RF Prolia 60 mg/mL syringe 60 mg subcut [id number] Qty: 1 5RF BD Sry/needle eclips See Rx Instructions IM .COMPLEX Qty: 12 0RF Rx Instructions: intramuscularly; 3ml #4678 uses 1 a month (DME) PEP device See Rx Instructions .ROUTE .MEDSUPPLY Qty: 1 0RF Rx Instructions: with training Trintellix 20 mg tablet 20 mg PO DAILY Qty: 90 3RF pramipexole 0.5 mg tablet 0.5 mg PO BID Qty: 180 3RF atorvastatin 40 mg tablet See Rx Instructions .ROUTE .COMPLEX Qty: 90 3RF Dose Instruction: TAKE 1 TABLET DAILY Rx Instructions: TAKE 1 TABLET DAILY Primary Care Provider: Yokasta Perry Referrals: Yokasta Perry MD [Primary Care Provider] - As Needed Print Language: Kittitian Disposition Disposition: Home, Self Care Discharge Date/Time: 06/07/24 11:03
--- NOTE | 2024-06-07 09:35 | RAD_ITS ---
STUDY: X-RAY - LEFT SHOULDER REASON FOR EXAM: Female, 83 years old female, pain, decreased range of motion TECHNIQUE: 2 view(s) of the shoulder. COMPARISON: None. FINDINGS: There is moderate degenerative arthrosis of the glenohumeral articulation. There is degenerative arthrosis of the acromioclavicular joint without inferior osseous spur formation. Normal acromion. Normal humeral head and visualized proximal humerus. The soft tissue structures are unremarkable. Normal visualized pulmonary apex. RAD/Shoulder min 2 Views IMPRESSION: Degenerative arthrosis, no demonstrated fracture or suspicious osseous lesion Electronically Signed: Darin Harper MD at 9:45 EDT ,
[2024-06-07 10:50] VITALS: BP 124/78; BP 131/64; PULSE 78; PULSE 89; RESP 14; RESP 16; TEMP 36.6; O2SAT 97; O2SAT 98
== END 2024-06-07 11:03 | disposition home or self-care (01) ==
PROVIDERS: Emergency Provider Emergency Medicine; PCP Internal Medicine; Visit Provider Emergency Medicine
DX: S09.90XA Unspecified injury of head, initial encounter (principal); F03.90 Unspecified dementia, unspecified severity, without behavioral disturbance, psychotic disturbance, mood disturbance, and anxiety; I10 Essential (primary) hypertension; E78.00 Pure hypercholesterolemia, unspecified; S40.012A Contusion of left shoulder, initial encounter; Z79.01 Long term (current) use of anticoagulants; I25.10 Atherosclerotic heart disease of native coronary artery without angina pectoris; W01.198A Fall on same level from slipping, tripping and stumbling with subsequent striking against other object, initial encounter; Z86.73 Personal history of transient ischemic attack (TIA), and cerebral 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; Z79.82 Long term (current) use of aspirin; K21.9 Gastro-esophageal reflux disease without esophagitis; Z79.899 Other long term (current) drug therapy; Z98.61 Coronary angioplasty status; Z90.49 Acquired absence of other specified parts of digestive tract
CPT/HCPCS: 70450; 73030; 99282

== ENCOUNTER 2024-07-09 13:30 | Outpatient (RCR) | payer MEDICARE, OTHER, SELFPAY ==
--- NOTE | 2024-06-24 11:24 | HP.PTEVAL_ITS ---
Patient's Visit Information Visit Information Visit Information: SHELDON ALAN is a 83 year old F referred to Physical Therapy by Dr. Christopher Turk DO with a diagnosis of R knee pain. Date of Evaluation: 06/23/24 Physical Therapist: Gunnar Graves, PT, ATC Visit Plan Frequency: 2x /Week Duration: 6-8 weeks Plan: B LE strengthening, balance and proprio, gait training, stair negotitati on, bike, and HEP Subjective Subjective: Pt reports her R knee has been sore for 3 months. Pt reports her R knee will buckle on her. Pt notes this promotes significant instability which has resulted in several falls. Pt reports she ambulates with a rollator now secondary to the instability of R LE. Pt reports she has been exercising with [facility] [employer] for half hour sessions. Pt reports she has numbness in both of her feet which she attributes to neuropathy. Pt reports she has no stairs at home, but has used the stairs here at [facility]. Pt reports she can negotiate stairs reciprocally with the use of 2 handrails. Pt reports prolonged standing is very difficult for her secondary to pain. Pt reports her R knee pain increases to 3/10 at worst. Pain R knee: Pain Intensity (Out of 10): 3 Pain Intensity Range: 3 Objective Objective: TU sec MMT: L knee flex= 32, ext= 29 #F; R knee flex= 18, ext= 22 Neuro: B LE sensation is WNL to light touch. Gait: Pt is able to ambulate 1000 feet until needing to rest secondary to fatigue. Requires rollator. Balance/Special Test Scores Lower Extremity Functional Score: 35 Goals Goal 1:: Perform the tug test in under 15 seconds to aid with community mobility Goal Time Frame: 6-8 Weeks Goal 2:: Pt will be able to ambulate 1000' with no AD to aid with mobility at home Goal Time Frame: 6-8 Weeks Goal 3:: Increase R LE strength x 10#F to aid with stair negotiation Goal Time Frame: 6-8 Weeks Goal 4:: I with HEP Goal Time Frame: 6-8 Weeks Rehabilitation Potential Physical Therapy Diagnosis: Pt has R knee pain, weakness, and difficulty with prolonged ambulation Rehabilitation Potential: Good Anticipated Interventions Patient/Client Instruction: Educate patient on: Condition and Plan of Care For the Purpose of:: To facilitate caregiver knowledge Therapeutic Exercise to Include: Strength training, Endurance training, Balance training, Postural training, Gait and locomotor training and Dynamic Lumbar Stabilization For the Purpose of:: To decrease pain, To improve muscle performance and motor function and To increase tolerance to activity/condition/position Text: Thank you for the opportunity to evaluate your patient. For Medicare and Medicare HMO plans, please review the plan of care and approve it. It will need to be FAXED BACK to us at [phone] for Medicare purposes. For Medicare only, by signing this I certify the plan of care. Please let me know if there are questions or concerns regarding this plan of care. Physician Signature: Date:
--- NOTE | 2024-09-24 12:27 | HP.PT.NRP ---
Patient Information Patient Information: SHELDON ALAN was seen in my office for initial evaluation on 06/23/24. The following Plan of Care was established for this patient: POC Established Initial Frequency: 2x /Week Initial Duration: 6-8 weeks Anticipated Interventions Patient/Client Instruction: Educate patient on: Condition and Plan of Care For the Purpose of:: To facilitate caregiver knowledge Therapeutic Exercise to Include: Strength training, Endurance training, Balance training, Postural training, Gait and locomotor training and Dynamic Lumbar Stabilization For the Purpose of:: To decrease pain, To improve muscle performance and motor function and To increase tolerance to activity/condition/position Last Seen Last Seen: This patient was last seen in our office . Pertinent comments regarding their Physical therapy will appear below: Pt has not returned through todays date for 30 days and is discontinued at this time. At this point I will be discontinuing this patient from physical therapy. I would be happy to see this patient again in the future if found appropriate by the physician. Thank you! Gunnar Graves, PT, ATC Balance/Gait/Functional tests Balance/Special Test Scores Lower Extremity Functional Score: 35
== END 2024-07-09 19:00 | disposition home or self-care (01) ==
LOC: PT 13:30
PROVIDERS: PCP Internal Medicine; Visit Provider Orthopaedic Surgery
DX: M17.11 Unilateral primary osteoarthritis, right knee (principal)
CPT/HCPCS: 97110; 97161

== ENCOUNTER 2024-09-18 08:36 | Emergency (ER) | payer MEDICARE, OTHER, SELFPAY ==
[2024-09-18 08:37] VITALS: BP 174/73; PULSE 71; RESP 20; TEMP 36.3; O2SAT 97
[2024-09-18 08:38] VITALS: BMI 25.7
--- NOTE | 2024-09-18 08:49 | CT_ITS ---
PROCEDURE: CHEST WITHOUT CONTRAST REASON FOR EXAM: Pain TECHNIQUE: Chest CT without contrast. COMPARISON: 2021. FINDINGS: Hardware: None. Lymph nodes: No mediastinal hilar or axillary lymphadenopathy. Heart and Vasculature: Normal heart size. No pericardial effusion. Thoracic aorta and pulmonary arteries have normal contours; noncontrast technique limits evaluation. Coronary Artery Calcifications: Prominent Lungs and Airways: Streaky airspace opacities with peribronchial thickening particularly affecting the lingula. No large lobar consolidation. No pneumothorax. Additional peribronchial thickening involving the right lower lobe. Pleura: No pleural effusion. No pneumothorax. Upper Abdomen: Large hiatal hernia Bones: Vertebroplasty changes partially visualized. Stable compression deformity in the midthoracic spine unchanged from 2021 CT/Chest without Contrast IMPRESSION: Improved airspace aeration compared to 2022, with persistent streaky airspace o pacities in the lingula and right lower lobe with associated peribronchial thickening. Chronic processes are favored, however, a cute infectious disease can not be definitively excluded. One or more dose reduction techniques were used (e.g., Automated exposure contr ol, adjustment of the mA and/or kV according to patient size, use of iterative reconstruction technique). [facility]
--- NOTE | 2024-09-18 08:54 | ED.VIS.FALL ---
HPI HPI - Fall History of Present Illness Chief Complaint: Fall Informant: patient and spouse/S.O. Narrative Narrative: 84-year-old female presenting to the emergency room with a chief complaint of right rib pain. Patient states that yesterday she went to go use the bathroom lost her balance fell into these sink cabinet injuring her right mid ribs. She states that she is continued to hurt since and it hurt worse this morning. She did not sleep much last night. She chronically takes tramadol through pain management for her low back. She has been holding her anticoagulant apixaban as she is supposed to have surgery Friday for hiatal hernia. She denies any cough or shortness of breath. Pain is worse with movement. [facility] Medical History Open wound of right lower extremity Contusion of right foot Kyphoscoliosis deformity of spine Bee sting Lumbar contusion Contusion of thoracic wall Pain of left lower extremity Contact with and (suspected) exposure to other viral communicable diseases Contusion of left wrist Left elbow contusion Contusion of left shoulder Scalp contusion Injury of left elbow Injury of left shoulder Presence of stent in coronary artery (~1989) Atherosclerotic heart disease of [place] coronary artery without angina pectoris Essential hypertension Influenza A Health care maintenance Falls frequently Cancer Depression Dementia Walker as ambulation aid Arthritis Bladder disease Low iron DVT (deep venous thrombosis) High cholesterol Restless legs Back pain TIA (transient ischemic attack) Seizures Difficulty swallowing Gastric reflux Non-smoker Asthma Shortness of breath on exertion Hx of echocardiogram History of stress test Hypertension Cardiology follow-up encounter History of heart attack Hypertension aquired autoimmune encephalopathy h/o back surgery Heart disease Dementia Partial complex seizures Home Medications ?Medication ?Instructions ?Recorded ?Last Taken ?Type L.acidophil-L.casei-B.bifid-B.longum-FOS 1 cap PO DAILY Supplement 09/02/21 10/05/21 History 2 billion cell-50 mg capsule (Probiotic Blend) aspirin 81 mg tablet,delayed 81 mg PO DAILY 01/10/22 Unknown History release (Adult Aspirin Regimen) d-mannose 500 mg capsule 500 mg PO DAILY 06/07/22 Unknown History famotidine 10 mg tablet 10 mg PO BID 06/07/22 Unknown History multivitamin 1 tab PO DAILY 06/07/22 Unknown History mirabegron 50 mg tablet,extended 50 mg PO QHS Check with primary 01/29/23 Unknown History release 24 hr (Myrbetriq) doctor albuterol sulfate 2.5 mg/3 mL 2.5 mg (3 mL) inhalation Q6H PRN 04/07/23 Unknown Rx (0.083 %) solution for nebulization Sob &/Or Wheezing #180 mL syringes BD ECLIPSE 04/11/23 Unknown History latanoprost 0.005 % eye drops 1 drp ophthalmic (eye) DAILY 08/13/23 Unknown History (Xalatan) furosemide 20 mg tablet 10 mg PO DAILY PRN edema 10/08/23 Unknown History donepezil 5 mg tablet (Aricept) 10 mg (2 x 5 mg) PO DAILY #90 tabs 11/12/23 Unknown Rx nitroglycerin 0.4 mg sublingual 0.4 mg sublingual Q5-15M PRN chest 11/12/23 Unknown Rx tablet pain #25 tabs denosumab 60 mg/mL subcutaneous 60 mg subcut [id number] #1 mL 02/18/24 Unknown Rx syringe (Prolia) BD Sry/needle eclips See Rx Instructions IM .COMPLEX 02/23/24 Unknown Rx #12 ea azelastine 137 mcg (0.1 %) nasal 2 spray intranasal 03/16/24 Unknown History spray cetirizine 10 mg capsule (Zyrtec) 10 mg PO DAILY PRN allergy symptoms 03/16/24 Unknown History fluticasone propionate 50 1 spray intranasal DAILY 03/16/24 Unknown History mcg/actuation nasal spray,suspension (Allergy Relief (fluticasone)) cyanocobalamin (vitamin B-12) 1,000 mcg IM QMONTH #10 mL 04/01/24 Unknown Rx 1,000 mcg/mL injection solution PEP device #1 ea 04/06/24 Unknown Rx apixaban 5 mg tablet (Eliquis) 5 mg PO BID #180 tabs 06/08/24 Unknown Rx atorvastatin 40 mg tablet See Rx Instructions .Route 06/08/24 Unknown Rx .COMPLEX #90 tabs donepezil 10 mg tablet 10 mg PO DAILY #90 tabs 06/08/24 Unknown Rx lacosamide 100 mg tablet (Vimpat) 100 mg PO BID #180 tabs 06/08/24 Unknown Rx levothyroxine 50 mcg tablet 50 mcg PO DAILY Thyroid #90 tabs 06/08/24 Unknown Rx memantine 10 mg tablet 10 mg PO BID Alzheimer's #180 tabs 06/08/24 Unknown Rx pramipexole 0.5 mg tablet 0.5 mg PO BID #180 tabs 06/08/24 Unknown Rx vortioxetine 20 mg tablet 20 mg PO DAILY DEPRESSION #90 tabs 06/08/24 Unknown Rx (Trintellix) gabapentin 100 mg capsule 100 mg PO DAILY PRN restless 08/31/24 Unknown Rx leg(s) #90 caps lidocaine 5 % topical patch 1 patch topical DAILY #5 ea 09/18/24 Unknown Rx (Lidoderm) Allergy/AdvReac Type Severity Reaction Status Date / Time doxycycline Allergy Mild Vomiting Verified 09/18/24 08:38 oxycodone (From Percocet) Allergy Mild Confusion Verified 09/18/24 08:38 acetaminophen (From Allergy Other Verified 09/18/24 08:38 Darvocet-N) lamotrigine (From Lamictal) Allergy Lip Verified 09/18/24 08:38 Swelling latex Allergy Rash Verified 09/18/24 08:38 moxifloxacin HCl (From Allergy Other Verified 09/18/24 08:38 Avelox) propoxyphene napsylate (From Allergy Other Verified 09/18/24 08:38 Darvocet-N) zolpidem tartrate (From AdvReac Other Verified 09/18/24 08:38 Ambien) Family History Mother CVA (cerebral vascular accident) Arthritis Father Myocardial infarction, Onset Age: 40 Alcoholism Hypertension Sister Anemia Grandmother Bowel disease Osteoporosis Ovarian cancer Surgical History History of hernia surgery Presence of coronary angioplasty implant and graft (~1989) History of hammer toe correction History of lumbar laminectomy History of carpal tunnel release History of tonsillectomy and adenoidectomy History of lumpectomy of left breast History of cardiac catheterization History of esophagogastroduodenoscopy (EGD) Hx of colonoscopy Hx of ventral hernia repair Hx of cataract extraction History of laryngoscopy History of appendectomy H/O kyphoplasty Social History household members: spouse housing: house Smoking Status: Never smoker alcohol intake: current alcohol intake frequency: a few times a week Alcohol type: wine substance use type: does not use caffeine: Yes Type: coffee Number of servings: 1 what type of physical activity do you participate in: other details: PT 3x weekly frequency: 3-4 times per week do you feel safe at home: Yes ROS ROS ED Constitutional Constitutional ED: Denies chills or weight loss Eyes Eyes: Denies change in vision or diplopia ENT ENT ED: Denies ear pain, rhinorrhea or sore throat Cardiovascular Cardiovascular: Reports chest pain; Denies orthopnea, palpitations or racing heartbeat Respiratory/Chest Respiratory/Chest: Denies cough, dyspnea or orthopnea Gastrointestinal Gastrointestinal: Denies abdominal pain, diarrhea, nausea or vomiting Genitourinary Genitourinary ED: Denies dysuria, hematuria or urinary frequency Musculoskeletal Musculoskeletal: Reports other Details: Chronic low back pain ; Denies arthralgias or myalgias Integumentary Denies abscess or rash Neurologic Neurologic: Denies headache(s) or weakness Psychiatric Psychiatric: Denies anxiety, depression, suicidal ideation or suicidal thoughts Endocrine Endocrinology: Denies polydipsia, polyphagia or polyuria Allergic/Immunologic Allergic/Immunologic ED: Denies mouth swelling, tongue swelling or urticaria EXAM Physical Exam Const Vital Signs: 09/18/24 08:37 09/18/24 09:27 Temperature 97.4 F L Temperature Source Temporal Pulse Rate 71 Respiratory Rate 20 H Respiratory Effort Normal Non-Labored Respiratory Depth Normal Respiratory Pattern Normal Blood Pressure 174/73 H Blood Pressure Mean 106 Pulse Ox 97 Oxygen Delivery Method Room Air Room Air Positive well nourished and well developed General Appearance ED: well developed and NAD HEENT Reports normocephalic, head/scalp atraumatic and moist mucous membranes Eyes PERRL and EOMs intact bilaterally Neck no lymphadenopathy, supple and no JVD Chest Wall Chest Narrative: Patient has tenderness to palpation over the lateral to anterior mid right ribs. I do not appreciate any subcutaneous emphysema or crepitance. There is no ecchymosis noted. Resp normal respiratory effort and clear to auscultation bilaterally Cardio regular rate, regular rhythm and no murmurs GI normal to inspection, nondistended, normoactive bowel sounds and non-tender Palpation: soft Back/Spine no CVA tenderness and normal ROM Back/Spine Narrative: Kyphotic Extremity normal to inspection General Extremety ED: Negative for edema General Extremity: Negative for edema Neuro oriented x3 and CN's II-XII intact bilaterally Sensorium / Orientation: alert Motor Exam: strength 5/5 throughout Psych mental status grossly normal Mood & Affect: Negative for depressed or tearful Skin no rashes or lesions noted and no wounds MDM MDM MDM Narrative Medical decision making narrative: Differential diagnosis includes but not limited to rib fracture rib contusion muscle contusion hematoma hemothorax pneumothorax pulmonary contusion Patient declined [place] stating that she was told not to take Tylenol before surgery. A CT of the chest without contrast was obtained. This was read by radiology and reviewed by myself. I do not appreciate any obvious rib fracture pneumothorax hemothorax or pleural effusions. Most likely this is a chest contusion. Patient will be using her home tramadol. I will also write for some Lidoderm patches. Follow-up 7 to 10 days if not improved return if worse History & Record Review Discussion w/independent historian: Patient and Significant other Radiography Diagnostic Testing: Clinical Impression(s) from Imaging Studies Chest CT 09/18/24 08:49 IMPRESSION: Improved airspace aeration compared to 2021, with persistent streaky airspace opacities in the lingula and right lower lobe with associated peribronchial thickening. Chronic processes are favored, however, acute infectious disease can not be definitively excluded. One or more dose reduction techniques were used (e.g., Automated exposure control, adjustment of the mA and/or kV according to patient size, use of iterative reconstruction technique). [facility] T[facility] Chief Complaint: Fall ED Provider: Moody Emery Dx/Rx/DC Orders Clinical Impression: Fall, Chest wall contusion Instructions: ED Chest Wall Contusion Prescriptions: New lidocaine [Lidoderm] 5 % adhesive patch,medicated 1 patch topical DAILY Qty: 5 0RF Rx Instructions: leave on most painful area for up to 12 hrs No Action Myrbetriq 50 mg tablet extended release 24 hr 50 mg PO QHS aspirin [Adult Aspirin Regimen] 81 mg tablet,delayed release (DR/EC) 81 mg PO DAILY multivitamin Tablet 1 tab PO DAILY famotidine 10 mg tablet 10 mg PO BID d-mannose 500 mg capsule 500 mg PO DAILY albuterol sulfate 2.5 mg /3 mL (0.083 %) solution for nebulization 2.5 mg inhalation Q6H PRN (Reason: Sob &/Or Wheezing) Qty: 180 6RF latanoprost [Xalatan] 0.005 % drops 1 drp ophthalmic (eye) DAILY furosemide 20 mg tablet 10 mg PO DAILY PRN (Reason: edema) nitroglycerin 0.4 mg tablet, sublingual 0.4 mg sublingual Q5-15M PRN (Reason: chest pain) Qty: 25 3RF Rx Instructions: do not exceed 3 doses per episode donepezil [Aricept] 5 mg tablet 10 mg PO DAILY Qty: 90 3RF cyanocobalamin (vitamin B-12) 1,000 mcg/mL solution 1,000 mcg IM QMONTH Qty: 10 0RF Rx Instructions: Can be administered at [facility] azelastine 137 mcg (0.1 %) spray,non-aerosol 2 spray intranasal Patient Comments: [NO ORIGINAL SIG] fluticasone propionate [Allergy Relief (fluticasone)] 50 mcg/actuation spray,suspension 1 spray intranasal DAILY Rx Instructions: administer into each nostril Zyrtec 10 mg capsule 10 mg PO DAILY PRN (Reason: allergy symptoms) Probiotic Blend 2 billion cell-50 mg Capsule 1 cap PO DAILY (DME) syringes BD ECLIPSE See Rx Instructions .Route .MEDSUPPLY Rx Instructions: Bd SYR/leticia Eclipse 3ml #5782 Prolia 60 mg/mL syringe 60 mg subcut [id number] Qty: 1 5RF BD Sry/needle eclips See Rx Instructions IM .COMPLEX Qty: 12 0RF Rx Instructions: intramuscularly; 3ml #3578 uses 1 a month (DME) PEP device See Rx Instructions .ROUTE .MEDSUPPLY Qty: 1 0RF Rx Instructions: with training atorvastatin 40 mg tablet See Rx Instructions .ROUTE .COMPLEX Qty: 90 3RF Dose Instruction: TAKE 1 TABLET DAILY Rx Instructions: TAKE 1 TABLET DAILY Eliquis 5 mg tablet 5 mg PO BID Qty: 180 3RF donepezil 10 mg tablet 10 mg PO DAILY Qty: 90 3RF lacosamide [Vimpat] 100 mg tablet 100 mg PO BID Qty: 180 3RF levothyroxine 50 mcg tablet 50 mcg PO DAILY Qty: 90 3RF memantine 10 mg tablet 10 mg PO BID Qty: 180 3RF pramipexole 0.5 mg tablet 0.5 mg PO BID Qty: 180 3RF Trintellix 20 mg tablet 20 mg PO DAILY Qty: 90 3RF gabapentin 100 mg capsule 100 mg PO DAILY PRN (Reason: restless leg(s)) Qty: 90 1RF Primary Care Provider: Yokasta Perry Referrals: Yokasta Perry MD [Primary Care Provider] - 1 Week if not improving Print Language: Kiswahili Disposition Disposition: Home, Self Care
[2024-09-18] MEDS: HYDROcodone Bitartrate/Apap 5/325 Tablet PO (09:10)
[2024-09-18 10:18] VITALS: BP 154/74; PULSE 78; RESP 18; TEMP 36.5; O2SAT 98
[2024-09-18] MEDS: Lidocaine 5% Patch 1 PATCH TOPICAL (10:33)
== END 2024-09-18 10:33 | disposition home or self-care (01) ==
PROVIDERS: Emergency Provider Emergency Medicine; PCP Internal Medicine; Visit Provider Emergency Medicine
DX: S20.20XA Contusion of thorax, unspecified, initial encounter (principal); F03.90 Unspecified dementia, unspecified severity, without behavioral disturbance, psychotic disturbance, mood disturbance, and anxiety; I25.10 Atherosclerotic heart disease of native coronary artery without angina pectoris; W19.XXXA Unspecified fall, initial encounter; Z86.718 Personal history of other venous thrombosis and embolism; Z86.73 Personal history of transient ischemic attack (TIA), and cerebral 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
CPT/HCPCS: 71250; 99282

== ENCOUNTER → 2024-10-18 | Outpatient (CLI) | payer MEDICARE, OTHER, SELFPAY ==
--- NOTE | 2024-10-18 13:26 | BI_ITS ---
PROCEDURE: SCRN MAMM (CAD)W/EVERETT BILAT REASON FOR EXAM: F, Age 84 y/o, personal history of breast cancer. Prior left lumpectomy with radiation. TECHNIQUE: Bilateral screening digital breast tomosynthesis with 2D and 3D images. Computer aided detection. COMPARISON: Prior exam(s) dating back to January 10, 2023.. FINDINGS: The breasts are extremely dense which lowers the sensitivity of mammography. The patient is status post lumpectomy in the deep upper lateral aspect of the left breast with resultant scarring and dystrophic calcification at the operative site. This is unchanged. No suspicious masses, areas of developing architectural distortion, or suspicious calcifications. BI/SCRN MAMM (CAD)W/EVERETT BILAT IMPRESSION: BI-RADS 2: BENIGN. RECOMMEND ANNUAL MAMMOGRAPHIC SCREENING. Follow-up code: Routine Follow-up The patient will be notified of the results by letter. Reading Location: [facility]
== END | disposition home or self-care (01) ==
LOC: OPBI 13:23
PROVIDERS: PCP Internal Medicine; Referring Provider Internal Medicine; Visit Provider Internal Medicine
DX: Z12.31 Encounter for screening mammogram for malignant neoplasm of breast (principal); Z85.3 Personal history of malignant neoplasm of breast
CPT/HCPCS: 77063; 77067

== ENCOUNTER → 2024-11-09 | Outpatient (CLI) | payer MEDICARE, OTHER, SELFPAY ==
--- NOTE | 2024-11-09 11:13 | RAD_ITS ---
EXAM: XR Chest, 2 Views CLINICAL INDICATION: POST OP EDEMA TECHNIQUE: Frontal and lateral views of the chest. COMPARISON: No relevant prior studies available. FINDINGS: LUNGS AND PLEURAL SPACES: Hyperlucent lungs. Flattening of the diaphragm. No consolidation. No pneumothorax. HEART: Unremarkable. No cardiomegaly. MEDIASTINUM: Unremarkable. Normal mediastinal contour. BONES/JOINTS: Unremarkable. No acute fracture. RAD/Chest PA and Lateral IMPRESSION: Suggestion of COPD. Reading Location[facility]
== END | disposition home or self-care (01) ==
LOC: RAD 11:10
PROVIDERS: PCP Internal Medicine; Referring Provider Internal Medicine; Visit Provider Internal Medicine
DX: R60.0 Localized edema (principal); I25.10 Atherosclerotic heart disease of native coronary artery without angina pectoris; R06.00 Dyspnea, unspecified
CPT/HCPCS: 71046

== ENCOUNTER 2025-02-01 13:30 | Outpatient (RCR) | payer MEDICARE, OTHER, SELFPAY ==
--- NOTE | 2025-01-12 15:06 | HP.PTEVAL_ITS ---
Patient's Visit Information Visit Information Visit Information: SHELDON ALAN is a 84 year old F referred to Physical Therapy by Dr. Yokasta Perry MD with a diagnosis of Unsteady gait. Date of Evaluation: 01/12/25 Physical Therapist: Gunnar Graves, PT, ATC Visit Plan Frequency: 2-3x /Week Duration: 4-6 Weeks Plan: B LE strengthening, core strengthening, stair negotiation, gait training with LRD, balance and proprio, nustep, and HEP Subjective Subjective: Pt reports she has had a lot of surgeries since September of this year. Pt notes she has become very debilitated and weak over that time span. Pt reports this has resulted in falls over this time span. Pt reports none recently. Pt reports she has been walking with a rollator over this span secondary to not feeling safe with her ambulation. Pt lives in a one story setting with her . Pt notes she is really hear today to help with her mobility and her function. Pt reports she has had PT at [facility] and with home health at home which had really made a difference, but she has debilitated over the past few weeks secondary to inactivity. Pt notes she does have peripheral neuropathy in B LE's. Pt reports she is not in any pain at this time. Objective Objective: Neuro: R LE is hyposensitive to light touch. L LE sensation is WNL to light touch. sit to stands: 5 reps in 30 sec TU sec MMT: R LE is grossly 4-/5 throughout. L LE is 5/5 throughout ROM: B LE's are WNL when compared bilaterally Gait: Pt is able to ambulate with the use of a rollator over 1000 feet with [id number] Balance/Special Test Scores Lower Extremity Functional Score: 13 Goals Goal 1:: Pt will perform 10 sit to stands in 30 seconds to aid with transfer efficiency Goal Time Frame: 4-6 Weeks Goal 2:: Pt will perform the TUG test in under 30 seconds to aid with gait efficiency Goal Time Frame: 4-6 Weeks Goal 3:: Pt will be able to ambulate greater than 340 feet with LRD to aid with community mobility Goal Time Frame: 4-6 Weeks Goal 4:: I with HEP Goal Time Frame: 4-6 Weeks Rehabilitation Potential Physical Therapy Diagnosis: Pt has LE weakness, unsteady gait, and difficulty with transfers secondary to debilitation Rehabilitation Potential: Good Anticipated Interventions Patient/Client Instruction: Educate patient on: Condition and Plan of Care For the Purpose of:: To improve muscle performance and motor function, To improve ability to perform ADL's and To increase tolerance to activity/condition/position Therapeutic Exercise to Include: Strength training, Endurance training, Balance training, Gait and locomotor training, Dynamic Lumbar Stabilization and Scapular Strength/Stabilization For the Purpose of:: To improve muscle performance and motor function, To improve ability to perform ADL's, To increase tolerance to activity/condition/position and To improve performance and independence with ADL's Text: Thank you for the opportunity to evaluate your patient. For Medicare and Medicare HMO plans, please review the plan of care and approve it. It will need to be FAXED BACK to us at [phone] for Medicare purposes. For Medicare only, by signing this I certify the plan of care. Please let me know if there are questions or concerns regarding this plan of care. Physician Signature: Date:
--- NOTE | 2025-04-12 08:49 | HP.PT.NRP ---
Patient Information Patient Information: SHELDON GALEANO was seen in my office for initial evaluation on 01/12/25. The following Plan of Care was established for this patient: POC Established Initial Frequency: 2-3x /Week Initial Duration: 4-6 Weeks Anticipated Interventions Patient/Client Instruction: Educate patient on: Condition and Plan of Care For the Purpose of:: To improve muscle performance and motor function, To improve ability to perform ADL's and To increase tolerance to activity/condition/position Therapeutic Exercise to Include: Strength training, Endurance training, Balance training, Gait and locomotor training, Dynamic Lumbar Stabilization and Scapular Strength/Stabilization For the Purpose of:: To improve muscle performance and motor function, To improve ability to perform ADL's, To increase tolerance to activity/condition/position and To improve performance and independence with ADL's Last Seen Last Seen: This patient was last seen in our office . Pertinent comments regarding their Physical therapy will appear below: Pt has not returned in greater than 30 days and is discontinued at this time. At this point I will be discontinuing this patient from physical therapy. I would be happy to see this patient again in the future if found appropriate by the physician. Thank you! Gunnar Graves, PT, ATC Balance/Gait/Functional tests Balance/Special Test Scores Lower Extremity Functional Score: 13
== END 2025-02-01 19:00 | disposition home or self-care (01) ==
LOC: PT 13:30
PROVIDERS: PCP Internal Medicine; Referring Provider Internal Medicine; Visit Provider Internal Medicine
DX: R26.89 Other abnormalities of gait and mobility (principal); R53.1 Weakness; R53.81 Other malaise; R29.6 Repeated falls; M81.0 Age-related osteoporosis without current pathological fracture; R42 Dizziness and giddiness; M41.9 Scoliosis, unspecified
CPT/HCPCS: 97110; 97116; 97161

== ENCOUNTER 2025-02-03 04:05 | Emergency (ER) | payer MEDICARE, OTHER, SELFPAY ==
[2025-02-03 04:07] VITALS: BP 176/86; PULSE 67; RESP 18; TEMP 36.6; O2SAT 97; BMI 28.8
[2025-02-03] MEDS: Ondansetron ODT 4 MG Tablet PO (05:00)
[2025-02-03] MEDS: HYDROmorphone 1 MG/ML Syringe IM ×2 (05:02→06:07)
--- OUTSIDE RECORDS SUMMARY | 2025-02-03 05:09 | XMS RPT_ITS | CCD ---
Author Organization [facility] Care Team Providers Care Paper Control Clerk Name Role Phone Parvin COHEN, Bryant Sandoval Primary Care Provider [phone] Dr. Arun Ramos Chi Primary Care Provider Richard, Dr. Arun Muller Referring Provider Melisa LIDDER, LIDDER-C Sandra Attending Provider Dr. Kinza Laughlin Emergency Provider Dr. Luh Sosa Attending Provider Unavailable Dr. Luh Sosa Admit Provider Unavailable Dr. Jean Claude Macedo Attending Provider Dr. Jean Claude Macedo Other Provider Dr. Vincent Morris Emergency Provider Dr. Jean Claude Macedo Admit Provider Dr. Demetrius Duffy Attending Provider Dr. Demetrius Duffy Other Provider Dr. Malachi Caal Attending Provider Dr. Arun Ramos Chi Primary Care Provider Richard, Dr. Arun Muller Referring Provider Melisa BROWN, LIDDER-C Sandra Attending Provider [phone] Dr. Arun Ramos Chi Primary Care Provider Richard, Dr. Arun Muller Referring Provider Dr. aMlachi Caal Attending Provider Melisa BROWN, LIDDER-C Sandra Referring Provider [phone] Chema Perry MD Primary Care Provider [phone] Dr. Arun Ramos Chi Primary Care Provider Charity Dove Attending Provider Unavailable Dr. Chema Perry Attending Provider [phone] Dr. Arun Ramos Chi Referring Provider Dr. Malachi Caal Attending Provider Dr. Chema Perry Primary Care Provider Dr. Chema Perry Referring Provider [phone] Dr. James Elizabeth Attending Provider Melisa BROWN, LIDDER-C Sandra Attending Provider Adrian VALENCIA, [place] Phillip Attending Provider [phone] Forrest Ortiz Attending Provider Unavailable Dr. Chema Perry Attending Provider [phone] Dr. Rolando Griffith Attending Provider Dr. Sarbjit Kraus Attending Provider Dr. Chema Perry Primary Care Provider Dr. Chema Perry Primary Care Provider Dr. Chema Perry Attending Provider [phone] Lashonda VALENCIA, PA Jd Vaughan Attending Provider Dr. Chema Perry Primary Care Provider Dr. Chema Perry Referring Provider [phone] Chema Perry MD Primary Care Provider [phone] Dr. Chema Perry Primary Care Provider Dr. Chema Perry Referring Provider [phone] Lashonda VALENCIA, PA Jd Vaughan Attending Provider Dr. Chema Perry Attending Provider [phone] BURAK Del Valle Attending Provider Dr. Rolando Griffith Attending Provider Dr. Vincent Smart Attending Provider ERIK Alonso Referring Provider Dr. Malachi Caal Attending Provider ERIK Jamison Attending Provider Dr. Sarbjit Kraus Attending Provider Dr. Chema Perry Primary Care Provider Dr. Chema Perry Attending Provider Dr. Chema Perry Referring Provider ERIK Alonso Attending Provider Dr. Chema Perry Primary Care Provider Dr. Chema Perry Referring Provider ERIK Alonso Attending Provider Dr. Chema Perry Attending Provider Dr. Chema Perry Primary Care Provider Dr. Chema Perry Referring Provider Dr. Chema Perry Primary Care Provider Dr. Chema Perry Referring Provider Dr. Rolando Griffith Attending Provider ERIK Alonso Attending Provider Dr. Chema Perry Attending Provider Melisa BROWN, L[place] Sandra Attending Provider Dr. Chema Perry Primary Care Provider Dr. Chema Perry Attending Provider Dr. Chema Perry Referring Provider ERIK Alonso Attending Provider ERIK Jamison Attending Provider Dr. Rolando Griffith Attending Provider ERIK Alonso Attending Provider Roseann VALENCIA PA Jerri Vaughan Referring Provider Dr. Chema Perry Primary Care Provider Dr. Chema Perry Referring Provider ERIK Alonso Attending Provider Melisa BROWN, LIDDER-C Sandra Attending Provider Roseann VALENCIA, [place] Jerri Vaughan Attending Provider Dr. Chema Perry Attending Provider Dr. Rolando Griffith Attending Provider [phone] ERIK Jamison Referring Provider Chema Perry MD Primary Care Provider Stephanie Brush Unavailable Dr. Chema Perry Primary Care Provider Dr. Chema Perry Attending Provider Dr. Chema Perry Referring Provider Dr. Malachi Caal Attending Provider Dr. Chema Perry Primary Care Provider Dr. Chema Perry Attending Provider Dr. Chema Perry Referring Provider Dr. Malachi Caal Attending Provider Kings BROWN, LIDDER-C Tamiko Attending Provider Dr. Chema Perry Primary Care Provider Dr. Chema Perry Attending Provider Dr. Vincent Smart Attending Provider Chema Perry MD Primary Care Provider [phone] Porfirio Carreon Unavailable Stephanie Brush MD Unavailable Dung MD, Judithyolanda Elieser Unavailable [phone] Chace COHEN, Chema Vaughan Primary Care Provider Lauri NAVARRETEPorfirio Unavailable Chace COHEN, Chema Vaughan Primary Care Provider Chace COHEN, Dr. Bear Primary Care Provider Chace COHEN, Dr. Bear Referring Provider Dr. Christopher Turk DO Attending Provider Chace COHEN, Dr. Bear Attending Provider Nacho COHEN, Dr. Marshall Attending Provider Dr. Susan Emery DO Attending Provider Rupert NAVARRETE, Dr. Uriostegui Emergency Provider Melisa BROWN-CSandra Attending Provider Burke NAVARRETE, Dr. White Attending Provider Chace COHEN, Dr. Bear Primary Care Provider Chace COHEN, Dr. Bear Attending Provider Chace COHEN, Dr. Bear Referring Provider LAISHA LIZARRAGA Referring Unavailable CHEMA PERRY Primary Care Unavailable ZGOARLENI, LAISHA Referring Unavailable CHEMA PERRY Primary Care Unavailable ZGOJAIMESKI, LAISHA Referring Unavailable CHACECHEMA M Primary Care Unavailable ZGODINSKI, LAISHA Referring Unavailable CHACECHEMA STEIN M Primary Care Unavailable ZGODINSKI, LAISHA Referring Unavailable CHACE, CEHMA M Primary Care Unavailable DE PAZ, ANILA Attending Unavailable CHACECHEMA STEIN M Primary Care Unavailable CHACE, CHEMA M Primary Care Unavailable LI, ANG Attending Unavailable LI, ANG Referring Unavailable ZGOCHUCHO, LAISHA Attending Unavailable ZLISSETTESKHakeem, LAISHA Referring Unavailable CHACECHEMA M Primary Care Unavailable DE PAZ, ANILA Referring Unavailable CHACE, CHEMA M Primary Care Unavailable DE PAZ, ANILA Referring Unavailable CHACE, CHEMA M Primary Care Unavailable [facility], ANILA Attending Unavailable DE PAZ, ANILA Referring Unavailable CHACE, CHEMA M Primary Care Unavailable ESTELLE HODGES Attending Unavailabl e CHACE, CHEMA M Primary Care Unavailable DUNG, QARAB Attending Unavailable HCACE, CHEMA M Primary Care Unavailable YOUNG LORD Attending Unavailable CHACE, CHEMA M Primary Care Unavailable ERDENICE Referring Unavailable CHACE, CHEMA M Primary Care Unavailable HUMZA CAMEJO Attending Unavailable CHACE, CHEMA M Primary Care Unavailable DENICE JACOBS Attending Unavailable DENICE JACOBS Referring Unavailable CHACE, CHEMA M Primary Care Unavailable HUMZA CAMEJO Attending Unavailable CHACE, CHEMA M Primary Care Unavailable DE PAZ, ANILA Referring Unavailable DE PAZ, ANILA Attending Unavailable CHACE, CHEMA M Primary Care Unavailable CHRISTOPHER FULTON Attending Unavailable [facility], ANILA Referring Unavailable CHACE, CHEMA M Primary Care Unavailable DUNG, QARAB Referring Unavailable CHACE, CHEMA M Primary Care Unavailable [facility], ANILA Attending Unavailable CHACE, CHEMA M Primary Care Unavailable DUNG, QARAB Referring Unavailable CHACE, CHEMA M Primary Care Unavailable [facility], ANILA Referring Unavailable DUNG, QARAB Attending Unavailable CHACE, CHEMA M Primary Care Unavailable [facility], ANILA Referring Unavailable CHACE, CHEMA M Primary Care Unavailable [facility], ANILA Referring Unavailable [facility], ANILA Admitting Unavailable [facility], ANILA Attending Unavailable CHACE, CHEMA M Primary Care Unavailable [facility], ANILA Referring Unavailable CHACE, CHEMA M Primary Care Unavailable IZABELLA QUILES Attending Unavailable SUSAN SRINIVASAN Referring Unavailable CHCAE, CHEMA M Primary Care Unavailable QUEENERDENICE Referring Unavailable CHACE, CHEMA M Primary Care Unavailable DENICE JACOBS Attending Unavailable CHACE, CHEMA M Primary Care Unavailable LAISHA LIZARRAGA Referring Unavailable LAISHA LIZARRAGA Attending Unavailable CHACE, CHEMA M Primary Care Unavailable [facility], ANILA Referring Unavailable CHACE, CHEMA M Primary Care Unavailable [facility], ANILA Attending Unavailable SUSAN SQUIRES Referring Unavailable CHACE, CHEMA M Primary Care Unavailable DE PAZ, [facility] Referring Unavailable CHACE, CHEMA M Primary Care Unavailable CHACE, CHEMA M Primary Care Unavailable [facility], [facility] Referring Unavailable CHACE, CHEMA M Primary Care Unavailable [facility], [facility] Referring Unavailable CHACE, CHEMA M Primary Care Unavailable CHACE, CHEMA M Primary Care Unavailable SUSAN SQUIRES Attending Unavailable CHACE, CHEMA M Referring Unavailable CHACE, CHEMA M Primary Care Unavailable LAISHA LIZARRAGA Attending Unavailable [facility], [facility] Referring Unavailable CHACE, CHEMA M Primary Care Unavailable CHACE, CHEMA M Primary Care Unavailable [facility], [facility] Referring Unavailable LAISHA LIZARRAGA Attending Unavailable CHACE, CHEMA M Primary Care Unavailable [facility], [facility] Admitting Unavailable [facility], [facility] Attending Unavailable CHACE, CHEMA M Primary Care Unavailable LUH DEAN Attending Unavailable DENICE JACOBS Referring Unavailable CHACE, CHEMA M Primary Care Unavailable Susan Emery Attending Unavailable Chace, Chema Primary Care Unavailable Chace, Chema Referring Unavailable Chace, Chema Attending Unavailable Chace, Chema Primary Care Unavailable ChaceAngieen Attending Unavailable Chace, Chema Primary Care Unavailable Chace, Chema Primary Care Unavailable Sandra Vincent Attending Unavailable Sandra Vincent Referring Unavailable Chace, Chema Referring Unavailable ChaceChema Attending Unavailable Chace, Chema Primary Care Unavailable Chace, Chema Referring Unavailable ChaceChema Attending Unavailable Chace, Chema Primary Care Unavailable Malachi Caal Attending Unavailable Malachi Caal Referring Unavailable Chace, Chema Primary Care Unavailable Vincent Morris Attending Unavailable Chace, Chema Primary Care Unavailable Chace, Chema Referring Unavailable VincentSandra Attending Unavailable Chace, Chema Primary Care Unavailable Chace, Chema Primary Care Unavailable Chace, Chema Referring Unavailable Jerri Jamison Attending Unavail able ChaceChema stein Attending Unavailable Chace, Chema Primary Care Unavailable Chace, Chema Referring Unavailable Chace, Chema Primary Care Unavailable Jd Alonso Attending Unavailable Chema Perry Attending Unavailable Chace, Chema Primary Care Unavailable Chace, Chema Referring Unavailable Jd Alonso Attending Unavailable Chace, Chema Primary Care Unavailable Jd Alonso Attending Unavailable Jd Alonso Referring Unavailable Chace, Chema Primary Care Unavailable Chace, Chema Attending Unavailable Chace, Chema Referring Unavailable Chace, Chema Primary Care Unavailable Chace, Chema Referring Unavailable Chace, Chema Attending Unavailable Chace, Chema Primary Care Unavailable Chace, Chema Attending Unavailable Chace, Chema Primary Care Unavailable Chace, Chema Referring Unavailable Chace, Cheam Primary Care Unavailable Sandra Vincent Attending Unavailable Chace, Chema Referring Unavailable Chace, Chema Primary Care Unavailable Jerri Jamison Attending Unavail able Nacho, [place] Attending Unavailable Susan Emery Attending Unavailable Chace, Chema Primary Care Unavailable Chace, Chema Attending Unavailable Chace, Chema Primary Care Unavailable Christopher Turk Attending Unavailable Chace, Chema Primary Care Unavailable Nacho, Rolando Attending Unavailable Chace, Chema Primary Care Unavailable Chace, Chema Referring Unavailable Borruso, Christopher Attending Unavailable Chace, Chema Primary Care Unavailable Chace, Chema Attending Unavailable Chace, Chema Primary Care Unavailable Chace, Chema Referring Unavailable Borruso Christopher Attending Unavailable Chace, Chema Primary Care Unavailable Borruso Christopher Attending Unavailable Chace, Chema Referring Unavailable Nacho, Rolando Attending Unavailable Chace, Chema Primary Care Unavailable Syed Leonard Attending Unavailable Chace, Chema Referring Unavailable Borruso Christopher Attending Unavailable Chace, Chema Primary Care Unavailable Chace, Chema Referring Unavailable Chace, Chema Attending Unavailable Chace, Chema Primary Care Unavailable Allergies Allergy Classification Reported Allergen(s) Allergy Type Date of Onset Reaction(s) Facility Acetaminophen / oxyCODONE (1 source) Acetaminophen / oxyCODONE Drug Allergy 08-09-20 20 Mental Status Change [facility] Anti-Epileptic Agents (1 source) lamoTRIgine Drug Allergy 08-09-20 20 Swelling [facility] Doxycycline (1 source) Doxycycline Drug Allergy 08-09-20 20 Vomiting [facility] Latex (1 source) Latex Substance Allergy 02-15-20 21 Rash [facility] NSAIDs (1 source) Diclofenac Drug Allergy 07-17-20 Other: See Comments [facility] Opioid Agonists (2 sources) oxyCODONE Drug Allergy 11-08-19 Mental Status Change, Other: See Comments [facility] Quinolones (antibiotic) (1 source) moxifloxacin Drug Allergy 08-09-20 Mental Status Change [facility] zolpidem (1 source) zolpidem Drug Allergy 08-09-20 Mental Status Change [facility] (20 sources) Acetaminophen / oxyCODONE; 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: [OXYCODONE-ACETAMIN OPHEN] Drug Allergy 08-09-20 Mental Status Change [facility] (20 sources) Adhesive agent; 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: [ADHESIVE] Drug Allergy 02-24-20 Other: See Comments [facility] (20 sources) Diclofenac; 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: [DICLOFENAC SODIUM] Drug Allergy 07-17-20 Other: See Comments [facility] (4 sources) diphenhydrAMINE Drug Allergy 05-20-20 16 Unknown, Other: See Comments [facility] (20 sources) Doxycycline; 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: [DOXYCYCLINE] Drug Allergy 08-09-20 Vomiting [facility] (20 sources) lamoTRIgine; 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: [LAMOTRIGINE] Drug Allergy 08-09-20 Swelling [facility] (20 sources) Latex; 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: [LATEX] Drug Allergy 02-15-20 Rash [facility] (20 sources) moxifloxacin; 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: [MOXIFLOXACIN] Drug Allergy 08-09-20 Mental Status Change [facility] (20 sources) oxyCODONE; 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: [OXYCODONE] Drug Allergy 06-28-20 Mental Status Change [facility] Comment on above: Nightmares, Suicidal Ideation (20 sources) Propoxyphene; 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: [PROPOXYPHENE] Drug Allergy 11-08-19 Mental Status Change, Other: See Comments [facility] (20 sources) zolpidem; 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: [ZOLPIDEM] Drug Allergy 08-09-20 Mental Status Change [facility] (20 sources) Adhesive Tape-Silicones; 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: [ADHESIVE TAPE-SILICONES] Drug Allergy 02-24-20 15 Unknown [facility] (20 sources) Propoxyphene N-Acetaminophen; 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: [PROPOXYPHENE N-ACETAMINOPHEN] Drug Allergy 02-09-20 06 Other: See Comments [facility] (20 sources) Acetaminophen Drug Allergy 11-08-19 Other [facility] (20 sources) moxifloxacin; 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: [moxifloxacin HCl] Drug Allergy 11-08-19 Other [facility] (20 sources) Propoxyphene; 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: [propoxyphene napsylate] Drug Allergy 11-08-19 Other [facility] (20 sources) zolpidem; 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: [zolpidem tartrate] Drug Allergy 11-08-19 Other [facility] (20 sources) Adhesive agent Drug Allergy 02-24-20 Other: See Comments [facility] (3 sources) HYDROcodone Drug Allergy 10-23-19 Confusion [facility] Comment on above: Nightmares, Suicidal Ideation (1 source) Acetaminophen Drug Allergy 10-23-19 [facility] (1 source) Doxycycline Drug Allergy 10-23-19 [facility] (1 source) HYDROcodone Drug Allergy 10-23-19 25 [facility] (1 source) lamoTRIgine Drug Allergy 10-23-19 25 [facility] (1 source) Latex Drug allergy (disorder) 09-18-19 [facility] (1 source) oxyCODONE Drug Allergy 10-23-19 [facility] Medications Current Medications Medication Drug Class(es) Dates Sig (Normalized) Sig (Original) acetaminophen 325 mg / HYDROcodone bitartrate 5 mg oral tablet (20 sources) Opioid Agonist Start: 10-08-2024 End: 11-19-2024 take 1 tablet by mouth every six hours as needed for pain HYDROcodone-aceta minophen (NORCO) 5-325 mg per tablet Indications: Other chronic pain Take 1 tablet by mouth every 6 hours as needed for pain for up to 72 doses. 72 tablet 10/08/2024 11/19/2024 Active Start: 09-01-2021 End: 09-25-2021 Hydrocodone-Acetaminophen 1 TABLET tablet Discontinued 1 {tbl} PO EVERY 6 HOURS NEEDED as needed for Pain 07 20September 01, 2021 September 25, 2021 9:06pm Start: 09-01-2021 End: 09-25-2021 take 1 tablet by mouth every six hours as needed Hydrocodone-Acetaminophen Discontinued 1 TABLET PO EVERY 6 HOURS NEEDED 12 September 01, 2021 September 25, 2021 9:06pm Administered Medications Medication Order MAR Action Action Date Dose Rate Site tuberculin skin test, unspecified formulation Given 10/09/2021 (1 source) Administered Medications Medication Order MAR Action Action Date Dose Rate Site tuberculin skin test, unspecified formulation Given 10/09/2021 albuterol 0.83 mg/ml inhalation solution (20 sources) beta2-Adrenergic Agonist Start: End: take 2.5 mg by inhalation every six hours Albuterol Sulfate Discontinued 2.5 MG INHALATION EVERY 6 HOURS 180 February 11, 2022 1:56pm April 07, 2023 1:08pm Start: 02-11-2022 End: 04-07-2023 take 2.5 mg by inhalation every six hours Albuterol Sulfate Discontinued 2.5 MG INHALATION EVERY 6 HOURS 180 February 11, 2022 2:56pm April 07, 2023 2:08pm Start: 02-11-2022 take 2.5 mg by inhal ation every six hours Albuterol Sulfate Active 2.5 MG INHALATION EVERY 6 HOURS 180 February 11, 2022 1:56pm Start: 02-11-2022 take 2.5 mg by inhal ation every six hours Albuterol Sulfate Active 2.5 MG INHALATION EVERY 6 HOURS 180 February 11, 2022 2:56pm Start: 08-06-2021 End: 02-11-2022 albuterol (PROVENTIL) 2.5 mg /3 mL (0.083 %) nebulizer solution Use 2.5 mg via nebulizer as needed. 08/06/2021 Active Start: 05-09-2021 End: 09-25-2021 albuterol sulfate Discontinu ed 2.5 MG continuous nebulization ONCE May 09, 2021 9:38am September 25, 2021 9:05pm Start: 05-09-2021 End: 08-09-2021 take 2.5 mg by inhalation every four hours as needed for wheezing Albuterol Sulfate 2.5 mg /3 mL (0.083 %) solution for nebulization Discontinued 2.5 mg INHALATION Q4H as needed for Sob &/Or Wheezing May 09, 2021 12:00am August 09, 2021 2:12pm Comment on above: as needed. apixaban 5 mg oral tablet (20 sources) Factor Xa Inhibitor Start: 03-20-2021 End: 06-08-2024 ELIQUIS 5 mg tab(s) Take 5 mg by mouth two times a day. BID 03/20/2021 Active Start: 03-09-2021 End: 09-25-2021 take 2 tablets by mouth twice daily, then take 1 tablet by mouth twice daily Apixaban (Eliquis) 5 mg tablet Discontinued 5 mg PO TWICE A DAY September 04, 2021 1:07pm September 25, 2021 9:06pm 10 mg twice a day for the first week. Then 5 mg twice a day. Comment on above: BID aspirin 81 mg delayed release oral tablet (20 sources) Platelet Aggregation Inhibitor, Nonsteroidal Anti-inflammatory Drug Start: 01-10-2022 take 1 tablet by mouth once daily Aspirin (Adult Aspirin Regimen) 81 mg tablet,delayed release (DR/EC) Active 81 mg PO DAILY January 10, 2022 12:00am Start: 06-28-2020 End: 09-25-2021 take 1 tablet by mouth once daily Aspirin 81 mg tablet,delayed release (DR/EC) Discontinued 81 mg PO DAILY February 13, 2021 5:04pm September 25, 2021 9:06pm Hold for 3 days Comment on above: Take 81 mg by mouth once daily. azelastine hydrochloride 0.137 mg/actuat metered dose nasal spray (7 sources) Histamine-1 Receptor Antagonist Start: 03-16-2024 End: 06-18-2024 Azelastine 137 mcg (0.1 %) spray,non-aerosol Active 2 NMA INTRANASAL March 16, 2024 12:00am BD Sry/needle eclips (20 sources) Start: 02-23-2024 BD Sry/needle eclips Active 0 IM .COMPLEX February 23, 2024 12:16pm intramuscularly; 3ml #3578 uses 1 a month Start: 12-08-2023 End: 02-23-2024 BD Sry/needle eclips Discont inued 0 IM .COMPLEX December 08, 2023 8:03am February 23, 2024 12:17pm intramuscularly; 3ml #3578 uses 1 a month Start: 12-08-2023 BD Sry/needle eclips Active 0 IM .COMPLEX December 08, 2023 8:03am intramuscularly; 3ml #3578 uses 1 a month Start: 04-11-2023 End: 12-08-2023 BD Sry/needle eclips Discont inued 0 IM .COMPLEX April 11, 2023 1:46pm December 08, 2023 8:04am intramuscularly; 3ml #3578 uses 1 a month Start: 04-11-2023 BD Sry/needle eclips Active 0 IM .COMPLEX April 11, 2023 12:46pm intramuscularly; 3ml #3578 uses 1 a month Start: 04-11-2023 BD Sry/needle eclips Active 0 IM .COMPLEX April 11, 2023 1:46pm intramuscularly; 3ml #3578 uses 1 a month Start: 04-11-2023 End: 04-11-2023 BD Sry/needle eclips Discont inued IM April 11, 2023 6:52am April 11, 2023 12:47pm 3ml #3578 uses 1 a month Start: 04-11-2023 End: 04-11-2023 BD Sry/needle eclips Discont inued IM April 11, 2023 7:52am April 11, 2023 1:47pm 3ml #3578 uses 1 a month Start: 04-25-2022 End: 04-11-2023 BD Sry/needle eclips Discont inued IM April 24, 2022 11:00pm April 11, 2023 6:52am 3ml #3578 Start: 04-25-2022 End: 04-11-2023 BD Sry/needle eclips Discont inued IM April 25, 2022 12:00am April 11, 2023 7:52am 3ml #3578 Start: 04-25-2022 BD Sry/needle eclips Active IM April 25, 2022 12:00am 3ml #3578 Start: 04-25-2022 BD Sry/needle eclips Active IM April 24, 2022 11:00pm 3ml #3578 benoxinate hydrochloride 4 mg/ml / fluorescein sodium 3 mg/ml ophthalmic solution (5 sources) Diagnostic Dye Start: 11-01-2024 End: 11-02-2024 fluorescein-benoxinate 0.3-0.4 % 1 Drop (FLURESS) Start: 08-02-2024 End: 08-03-2024 fluorescein-benoxinate 0.3-0 .4 % 1 Drop (FLURESS) Start: 08-02-2024 End: 08-03-2024 1 Drop, BOTH EYES, DIRECT ED, Starting on Fri08/02/24 at 1530, Until Fri08/03/24 at 0329, Administer for applanation tonometry. In the event of a Fluress shortage, administer Welch-Fluor 1 drop into both eyes as directed for applanation tonometry, OPHT CLINIC MED ORDERS Start: 05-03-2024 End: 05-04-2024 fluorescein-benoxinate 0.3-0 .4 % 1 Drop (FLURESS) Start: 10-27-2023 End: 10-28-2023 fluorescein-benoxinate 0.3-0 .4 % 1 Drop (FLURESS) brimonidine tartrate 2 mg/ml ophthalmic solution (20 sources) alpha-Adrenergic Agonist Start: 10-14-2024 Brimo nidine 0.2 % drops Active NMA OPHTHALMIC October 14, 2024 1:00am Start: 05-03-2024 End: 11-01-2024 take 1 drop(s) into the eye(s) twice daily brimonidine (ALPHAGAN) 0.2 % ophthalmic solution Use 1 Drop in both eyes two times a day. 30 mL 11 06/10/2024 11/01/2024 Discontinued (Course of therapy completed) casanthranol/docusate sodium (DOCUSATE SODIUM WITH LAXATIVE ORAL) (20 sources) take 1 tablet by mouth every other day casanthranol/docusate sodium (DOCUSATE SODIUM WITH LAXATIVE ORAL) Take 1 tablet by mouth every other day. Suspended take 1 tablet by ricki th every other day casanthranol/docusate sodium (DOCUSATE S ODIUM WITH LAXATIVE ORAL) Take 1 tablet by mouth every other day. Active cetirizine hydrochloride 10 mg oral capsule (20 sources) Histamine-1 Receptor Antagonist Start: 03-16-2024 take 1 capsule by mouth once daily as needed Cetirizine (Zyrtec) 10 mg capsule Active 10 mg PO DAILY as needed for allergy symptoms March 16, 2024 12:00am Start: 01-29-2021 End: 03-01-2021 take 1 capsule by mouth once daily Cetirizine (Zyrtec) 10 mg Capsule Discontinued 10 mg PO DAILY January 29, 2021 12:00am March 01, 2021 7:55pm End: 09-14-2024 take 1 tablet by mouth once daily as needed cetirizine (ZYRTEC) 10 mg tablet Take 10 mg by mouth once daily as needed. 09/14/2024 Discontinued (Discontinued by Patient) Cyanocobalamin (Vitamin B-12) 1,000 mcg/mL solution (3 sources) Start: 04-01-2024 inject 1000 ug by intramuscular injection every month Cyanocobalamin (Vitamin B-12) 1,000 mcg/mL solution Active 1000 ug IM EVERY MONTH April 01, 2024 12:00am Can be administered at [facility] D-Mannose (20 sources) Start: 06-07-2022 take 1 capsule by mouth once daily D-Mannose 500 mg capsule Active 500 mg PO DAILY June 07, 2022 12:00am Start: 06-07-2022 take 500 mg by mouth once [place] D-Mannose Active 500 MG PO DAILY June 07, 2022 12:00am Start: 06-07-2022 take 500 mg by mouth once [place] D-Mannose Active 500 MG PO DAILY June 06, 2022 11:00pm Start: 09-02-2021 End: 09-25-2021 take 500 mg by mouth once daily D-Mannose Discontinued 500 MG PO DAILY September 02, 2021 6:11pm September 25, 2021 9:06pm Start: 09-02-2021 End: 09-25-2021 take 1 capsule by mouth once daily D-Mannose 500 mg Capsule Discontinued 500 mg PO DAILY September 02, 2021 1:00am September 25, 2021 9:06pm Start: 09-02-2021 End: 09-25-2021 take 500 mg by mouth once daily D-Mannose Discontinued 500 MG PO DAILY September 02, 2021 12:00am September 25, 2021 8:06pm Start: 09-02-2021 End: 09-25-2021 take 500 mg by mouth once daily D-Mannose Discontinued 500 MG PO DAILY September 02, 2021 1:00am September 25, 2021 9:06pm d-mannose 500 mg capsule (20 sources) take 1 capsule by [facility] once daily d-mannose 500 mg capsule Take 500 mg by mouth once daily. Suspended take 1 capsule by mouth once [place]ugen[place] ly d-mannose 500 mg capsule Take 500 mg by mouth once daily. Active DODEX 1,000 mcg/mL (20 sources) Start: 07-19-2022 inject 1000 ug by intramuscular injection every month DODEX 1,000 mcg/mL Inject 1,000 mcg intramuscularly once every month. Vitamin A-52-tgfgeujaknwcup 07/19/2022 Suspended Start: 07-19-2022 inject 1000 ug by in tramuscular injection every month DODEX 1,000 mcg/mL Inject 1,000 mcg intramuscularly once every month. Vitamin P-42-vgzwegbldqreqr 07/19/2022 Active Start: 07-19-2022 DODEX 1,000 mc g/mL inject 1 milliliter ( 1000 MCG ) intramuscularly Every Month 07/19/2022 Active Start: 07-19-2022 DODEX 1,000 mc g/mL inject 1 milliliter ( 1000 MCG ) intramuscularly Every Month 0 07/19/2022 Active Comment on above: inject 1 milliliter ( 1000 MCG ) intramuscularly Every Month donepezil hydrochloride 10 mg oral tablet (20 sources) Start: 11-12-19 take 2 tablets by mouth once daily Donepezil (Aricept) 5 mg tablet Active 10 mg PO DAILY November 12, 2023 3:21pm Start: 10-16-2023 End: 10-14-2024 take 1 tablet by mouth once daily at breakfast donepezil (ARICEPT) 10 mg tablet Indications: 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 45 tablet 1 03/14/2023 04/08/2023 Discontinued Comment on above: Take 1 tablet by ricki th daily with breakfast. Take 0.5 tablets by mouth daily with breakfast. dorzolamide 20 mg/ml / timolol 5 mg/ml ophthalmic solution (20 sources) Carbonic Anhydrase Inhibitor, beta-Adrenergic Oxana Start: 11-01-2024 take 1 drop(s) into the eye(s) twice daily dorzolamide-timolol (COSOPT) 22.3-6.8 mg/mL ophthalmic solution Use 1 Drop in both eyes two times a day. 15 mL 11/01/2024 Active enteric contrast (will be provided with radiology test) (2 sources) Start: 06-18-2024 End: 06-19-2024 enteric contrast (will be provided with radiology test) For CT CHESTABD/PEL W IVCON Routine order Administer, As Directed One Time Only, via Oral, Rectal, both Oral and Rectal, Enteric Tube, Stoma or Indwelling Catheter, Enteric Contrast as designated per enteric contrast guidelines 1 Each 06/18/2024 06/19/2024 Active famotidine 10 mg oral tablet (20 sources) Histamine-2 Receptor Antagonist Start: 06-07-2022 take 1 tablet by mouth twice daily Famotidine 10 mg tablet Active 10 mg PO TWICE A DAY June 07, 2022 12:00am Start: 02-15-2022 End: 04-25-2022 take 1 tablet by mouth twice daily Famotidine (Pepcid) 20 mg Tablet Discontinued 20 mg PO TWICE A DAY February 15, 2022 12:00am April 25, 2022 11:41am Comment on above: Take 10 mg by mouth twice daily. fluticasone propionate 0.05 mg/actuat metered dose nasal spray (20 sources) Corticosteroid Start: take 50 ug nasal route once daily Fluticasone Propionate (Allergy Relief (Fluticasone)) 50 mcg/actuation spray,suspension Active 1 NMA INTRANASAL DAILY March 16, 2024 12:00am administer into each nostril End: 09-14-2024 take 1 spray(s) nasal route once daily fluticasone (ALLERGY RELIEF, FLUTICASONE,) 50 mcg/actuation nasal spray Use 1 [place] in each nostril once daily. 09/14/2024 Discontinued (Discontinued by Patient) furosemide 20 mg oral tablet (20 sources) Loop Diuretic Start: 12-24-2024 take 1 tablet by mouth once daily furosemide (LASIX) 20 mg tablet Take 1 tablet by mouth once daily. 90 tablet 3 12/24/2024 Active Start: 08-13-2023 End: 12-20-2024 take 0.5 tablet by mouth once as needed furosemide (LASIX) 20 mg tablet Take 0.5 tablets by mouth every afternoon. As needed 45 tablet 12/16/2024 12/20/2024 Discontinued Start: 08-13-2023 End: 11-23-2024 take 10 mg by mouth once daily as needed for edema Furosemide 20 mg tablet Active 10 mg PO DAILY as needed for edema November 23, 2024 10:14am Start: 08-13-2023 End: 10-08-2023 take 10 mg by mouth once daily Furosemide Active 10 MG PO DAILY October 08, 2023 3:28pm Start: 06-28-2020 End: 03-01-2021 take 1 tablet by mouth once daily Furosemide (Lasix) 20 mg tablet Discontinued 20 mg PO DAILY February 13, 2021 5:04pm March 01, 2021 7:55pm Comment on above: Take 0.5 tablets by mouth every afternoon. gabapentin 100 mg oral capsule (20 sources) Anti-epileptic Agent Start: End: take 2 capsules by mouth once daily gabapentin (NEURONTIN) 100 mg capsule Indications: Idiopathic peripheral neuropathy , Restless legs syndrome Take 2 capsules by mouth once daily for 180 days. 180 capsule 1 12/23/2024 06/21/2025 Active Start: 01-02-2023 End: 12-20-2025 take 1 capsule by mouth once daily gabapentin (NEURONTIN) 100 mg capsule Take 1 capsule by mouth once daily. 90 capsule 3 12/20/2024 12/23/2024 Discontinued Start: 01-02-2023 End: 01-29-2023 take 1 capsule by mouth twice daily as needed Gabapentin 100 mg capsule Discontinued 100 mg PO TWICE A DAY as needed for restless leg(s) January 02, 2023 12:00am January 29, 2023 3:44pm Start: 03-01-2021 End: 09-04-2021 take 1 capsule by mouth at bedtime Gabapentin 100 mg Capsule Discontinued 100 mg PO AT BEDTIME 7 7 March 01, 2021 12:00am September 04, 2021 1:07pm Start: 08-02-2020 End: 03-01-2021 take 2 capsules by mouth twice daily Gabapentin 300 mg capsule Discontinued 600 mg PO TWICE A DAY 360 November 08, 2020 4:09pm February 13, 2021 5:04pm Start: 08-02-2020 End: 03-01-2021 take 600 mg by mouth twice daily Gabapentin Discontinu ed 600 MG PO TWICE A DAY 360 November 08, 2020 4:09pm February 13, 2021 5:04pm Start: 06-28-2020 End: 08-02-2020 take 2 capsules by mouth once daily Gabapentin 300 mg capsule Discontinued 600 mg PO DAILY June 28, 2020 1:00am August 02, 2020 3:06pm Start: 06-28-2020 End: 08-02-2020 take 600 mg by mouth once daily Gabapentin Discontinue d 600 MG PO DAILY June 28, 2020 1:00am August 02, 2020 3:06pm Comment on above: as needed. gentamicin 0.1% miconazole 2% triamcinolone 0.1% 1:1:1 topical cream (CPD) (17 sources) Start: 11-08-2024 End: 11-22-2024 apply 30 g topically twice daily gentamicin 0.1% miconazole 2% triamcinolone 0.1% 1:1:1 topical cream (CPD) Apply to affected area two times a day for 14 days. 30 g 11/08/2024 11/22/2024 Suspended Start: 11-08-2024 End: 11-22-2024 apply 30 g topically twice daily gentamicin 0.1% micon azole 2% triamcinolone 0.1% 1:1:1 topical cream (CPD) Apply to affected area two times a day for 14 days. 30 g 11/08/2024 11/22/2024 Active Start: 10-29-2024 End: 11-08-2024 apply 30 g topically twice daily gentamicin 0.1% micon azole 2% triamcinolone 0.1% 1:1:1 topical cream (CPD) Apply to affected area two times a day for 14 days. 30 g 10/29/2024 11/08/2024 Discontinued Start: 10-29-2024 End: 11-12-2024 apply 30 g topically twice daily gentamicin 0.1% micon azole 2% triamcinolone 0.1% 1:1:1 topical cream (CPD) Apply to affected area two times a day for 14 days. 30 g 10/29/2024 11/12/2024 Active Ipratropium (16 sources) Anticholinergic Start: 10-08-2023 Ipratropium Br omide Active 2 SPRAY INTRANASAL TWICE A DAY October 08, 2023 1:00am Start: 10-08-2023 Ipratropium Br omide Active 2 SPRAY INTRANASAL TWICE A DAY October 08, 2023 12:00am Start: 08-25-2023 End: 06-18-2024 ipratropium bromide (ATROVEN T) 42 mcg (0.06 %) nasal spray 08/25/2023 06/18/2024 Discontinued (Course of therapy completed) iv contrast (will be provide d with radiology test) (8 sources) Start: 11-02-2024 End: 11-03-2024 iv contrast (will be provide d with radiology test) CT ABD/PEL -Inject, intravenously, once for 1 dose.No IV access, insert saline lock prior to the beginning of sedation, infusion, injection of imaging exam. Discontinue saline lock post exam. If Pt. has a central line or IVAD, may access for administration according to line specific nursing protocol. Once exam is complete flush line and de-access according to line specific nursing protocol in the CT contrast administration guidelines link. 1 Each 11/02/2024 11/03/2024 Active Start: 09-03-2024 End: 09-04-2024 iv contrast (will be provide d with radiology test) MRI PANC/MAGNOLIA Inject, intravenously, once for 1 dose. No IV access, insert saline lock prior to the beginning of sedation, infusion, injection of imaging exam. Discontinue saline lock post exam. If Pt. has a central line or IVAD, may access for administration according to line specific nursing protocol. Once exam is complete flush line and de-access according to line specific nursing protocol in the MR contrast administration guidelines link. 1 Each 09/03/2024 09/04/2024 Active Start: 06-18-2024 End: 06-19-2024 iv contrast (will be provide d with radiology test) CT Chest ABD/PEL-Inject, intravenously, once for 1 dose.No IV access, insert saline lock prior to the beginning of sedation, infusion, injection of imaging exam. Discontinue saline lock post exam. If Pt. has a central line or IVAD, may access for administration according to line specific nursing protocol. Once exam is complete flush line and de-access according to line specific nursing protocol in the CT contrast administration guidelines link. 1 Each 06/18/2024 06/19/2024 Active L.Acid-L.Casei-B.Bif-B.Roderick-F os (Probiotic Blend) 2 billion cell-50 mg Capsule (20 sources) Start: 09-02-2021 take 2 capsules by mouth once daily L.Acid-L.Casei-B.Bif-B.Roderick-Fos (Probiotic Blend) 2 billion cell-50 mg Capsule Active 1 CAP PO DAILY September 02, 2021 6:11pm Start: 09-02-2021 take 2 capsules by mouth once daily L.Acid-L.Casei-B.Bif-B.Roderick-Fos (Probioti c Blend) 2 billion cell-50 mg Capsule Active 1 NMA PO DAILY September 02, 2021 1:00am Start: 09-02-2021 take 2 capsules by mouth once daily L.Acid-L.Casei-B.Bif-B.Roderick-Fos (Probioti c Blend) 2 billion cell-50 mg Capsule Active 1 CAP PO DAILY September 02, 2021 12:00am Start: 09-02-2021 take 2 capsules by mouth once daily L.Acid-L.Casei-B.Bif-B.Roderick-Fos (Probioti c Blend) 2 billion cell-50 mg Capsule Active 1 CAP PO DAILY September 02, 2021 1:00am lacosamide 100 mg oral tablet (20 sources) Anti-epileptic Agent Start: 06-28-2020 End: 12-20-2024 take 1 tablet by mouth twice daily lacosamide (VIMPAT) 100 mg tab Indications: History of complex partial epilepsy Take 1 tablet by mouth twice daily for 180 days. 180 tablet 1 02/08/2021 Active Comment on above: Take 1 tablet by ricki twice daily for 180 days. ammonium lactate 120 mg/ml topical lotion (20 sources) Start: 06-13-2022 ammonium lactate (LAC-HYDRIN) 12 % lotion 06/13/2022 Active lactobacillus acidophilus [id number] unt oral capsule (20 sources) Start: 03-27-2021 take 1 capsule by mouth once daily Lactobacillus acidophilus (PROBIOTIC) 10 billion cell cap Take 1 capsule by mouth once daily. 03/27/2021 Active Comment on above: once daily. latanoprost 0.05 mg/ml ophthalmic solution (20 sources) Prostaglandin Analog Start: 08-13-2023 Latanoprost (Xalatan) 0.005 % drops Active 1 NMA OPHTHALMIC DAILY August 13, 2023 1:00am Start: 07-28-2023 End: 06-10-2024 take 1 drop(s) into the eye(s) once daily at bedtime latanoprost (XALATAN) 0.005 % ophthalmic solution Use 1 Drop in both eyes daily at bedtime. 7.5 mL 11 06/10/2024 Active Comment on above: Use 1 Drop in both e yes daily at bedtime. memantine hydrochloride 10 mg oral tablet (20 sources) O-jdbseh-O-aspartat e Receptor Antagonist Start: End: 4 take 1 tablet by mouth twice daily memantine (NAMENDA) 10 mg tablet Take 10 mg by mouth two times a day. 04/10/2021 Active 24 hr mirabegron 50 mg extended release oral tablet (20 sources) beta3-Adrenergic Agonist Start: 3 take 1 tablet by mouth every twenty-four hours at bedtime Mirabegron (Myrbetriq) 50 mg tablet extended release 24 hr Active 50 mg PO AT BEDTIME January 29, 2023 3:42pm Start: 01-08-2021 take 50 mg by mouth once daily MYRBETRIQ 50 mg Tb24 Take 50 mg by mouth once daily. 01/08/2021 Active Start: 11-06-2020 End: 01-29-2023 take 1 tablet by mouth every twenty-four hours at bedtime Mirabegron (Myrbetriq) 50 mg tablet extended release 24 hr Discontinued 100 mg PO AT BEDTIME November 06, 2020 1:03pm January 29, 2023 3:44pm Start: 06-28-2020 End: 11-06-2020 take 1 tablet by mouth once daily Mirabegron (Myrbetriq) 50 mg tablet extended release 24 hr Discontinued 50 mg PO DAILY June 28, 2020 1:00am November 06, 2020 1:06pm Comment on above: Taking 2 tabs once d aily MULTIVITAMIN ORAL (20 sources) Start: 06-07-2022 take 1 tablet by mouth once daily MULTIVITAMIN ORAL Take 1 tablet by mouth once daily. 06/07/2022 Suspended Start: 06-07-2022 take 1 tablet by ricki th once daily MULTIVITAMIN ORAL Take 1 tablet by mouth once daily. 06/07/2022 Active Start: 06-07-2022 MULTIVITAMIN O RAL Take by mouth once daily. 06/07/2022 Active Start: 06-07-2022 MULTIVITAMIN O RAL Take by mouth once daily. 0 06/07/2022 Active Comment on above: Take by mouth once d aily. Multivitamin preparation (19 sources) Start: 06-07-2022 take 1 tablet by mouth once daily Multivitamin Active 1 TABLET PO DAILY June 07, 2022 12:00am Start: 06-07-2022 take 1 tablet by ricki th once daily Multivitamin Active 1 TABLET PO DAILY June 06, 2022 11:00pm Multivitamin tablet (3 sources) Start: 06-07-2022 Multivitamin t ablet Active 1 {tbl} PO DAILY June 07, 2022 12:00am nitroglycerin 0.4 mg sublingual tablet (20 sources) Nitrate Vasodilator Start: 11-12-2023 End: 11-12-2023 Nitroglycerin 0.4 mg tablet, sublingual Active 0.4 mg SL every 5 to 15 minutes as needed for chest pain November 12, 2023 3:12pm do not exceed 3 doses per episode Start: 11-12-2023 End: 11-12-2023 Nitroglycerin Active 0.4 MG SL every 5 to 15 minutes November 12, 2023 3:12pm do not exceed 3 doses per episode Start: 06-28-2020 End: 03-01-2021 take 1 tablet under the tongue once Nitroglycerin 0.4 mg tablet, sublingual Discontinued 0.4 mg SL ONCE as needed for CP February 06, 2021 1:29pm March 01, 2021 7:56pm as a single dose; administer 5-10 minutes before situation known to precipitate angina attack Start: 06-28-2020 End: 03-01-2021 Nitroglycerin Discontinued 0 .4 MG SL ONCE February 06, 2021 1:29pm March 01, 2021 7:56pm as a single dose; administer 5-10 minutes before situation known to precipitate angina attack Start: 06-10-2008 nitroglycerin sublingual (NITROQUICK) 0.4 mg SL tablet as needed. 06/10/2008 Active Comment on above: as needed. olopatadine hydrochloride 0.665 mg/actuat metered dose nasal spray (3 sources) Histamine-1 Receptor Inhibitor Start: 10-14-2024 Olopatadine 0.6 % spray,non-aerosol Active NMA INTRANASAL October 14, 2024 1:00am OXYGEN, HOME THERAPY, (20 sources) OXYGEN, HOME THE RAPY, Inhale 2 L/min as instructed as directed. With naps and at bedtime Suspended OXYGEN, HOME THE RAPY, Inhale 2 L/min as instructed as directed. With naps and at bedtime Active End: 03-14-2023 OXYGEN, HOME THERAPY, 2 L/mi n by Nasal Cannula route daily at bedtime. 03/14/2023 Discontinued OXYGEN, HOME THE RAPY, 2 L/min by Nasal Cannula route daily at bedtime. 0 Active Comment on above: 2 L/min by Nasal Can nula route daily at bedtime. pantoprazole 40 mg delayed release oral tablet (20 sources) Proton Pump Inhibitor Start: 5 End: 5 take 1 tablet by mouth once daily pantoprazole DR (PROTONIX) 40 mg tablet Take 1 tablet by mouth once daily. 30 tablet 5 10/11/2024 04/09/2025 Active PEP device (20 sources) Start: 4 PEP device Active 0 .ROUTE .MEDSUPPLY April 06, 2024 8:26am with training Start: 04-05-2024 End: 04-06-2024 PEP device Discontinued 0 .R OUTE .MEDSUPPLY 1 April 05, 2024 12:00am April 06, 2024 8:27am with training Start: 05-09-2021 End: 10-08-2023 PEP device Discontinued 0 .R OUTE .MEDSUPPLY 1 May 09, 2021 10:34am October 08, 2023 3:29pm with training Start: 05-09-2021 End: 10-08-2023 PEP device Discontinued 0 .R OUTE .MEDSUPPLY 1 May 09, 2021 9:34am October 08, 2023 2:29pm with training Start: 05-09-2021 PEP device Act song 0 .ROUTE .MEDSUPPLY 1 May 09, 2021 9:34am with training Start: 05-09-2021 PEP device Act song 0 .ROUTE .MEDSUPPLY 1 May 09, 2021 10:34am with training Start: 05-09-2021 End: 05-09-2021 PEP device Discontinued 0 .R OUTE .MEDSUPPLY 1 May 09, 2021 10:09am May 09, 2021 10:34am with training Start: 05-09-2021 End: 05-09-2021 PEP device Discontinued 0 .R OUTE .MEDSUPPLY 1 May 08, 2021 11:00pm May 09, 2021 9:34am with training Start: 05-09-2021 End: 05-09-2021 PEP device Discontinued 0 .R OUTE .MEDSUPPLY 1 May 09, 2021 12:00am May 09, 2021 10:34am with training phenylephrine hydrochloride 25 mg/ml ophthalmic solution (1 source) alpha-1 Adrenergic Agonist Start: 05-03-2024 End: 05-04-2024 PHENYLephrine 2.5 % 1 Drop (AK-DILATE, ZEYAD-SYNEPHRINE) microencapsulated potassium chloride 20 meq extended release oral tablet (20 sources) Start: 08-03-2024 take 1 tablet by mouth once daily potassium chloride ER (KLOR-CON) 20 mEq tablet Take 1 tablet by mouth once daily. 90 tablet 2 08/03/2024 Active Start: 09-26-2021 End: 04-11-2022 take 20 mEq by mouth once daily potassium chloride 20 mEq TbER Take 20 mEq by mouth once daily. 0 09/26/2021 04/11/2022 Discontinued (Discontinued by Patient) Start: 09-25-2021 Potassium Chlo ride (Klor-Con M20) 20 mEq Tablet,Er Particles/Crystals Active 20 MEQ PO DAILY WITH MEALS September 25, 2021 9:05pm Comment on above: Take 20 mEq by mouth once daily. pramipexole dihydrochloride 0.5 mg oral tablet (20 sources) Nonergot Dopamine Agonist Start: End: take 1 tablet by mouth twice daily pramipexole (MIRAPEX) 0.5 mg tablet Take 0.5 mg by mouth two times a day. 09/26/2021 Active Start: 09-25-2021 take 1 tablet by ricki th three times daily pramipexole (MIRAPEX) 0.5 mg tablet Take 0.5 mg by mouth three times daily. 09/26/2021 Active Start: 05-09-2021 End: 09-25-2021 take 2 tablets by mouth three times daily Pramipexole (Mirapex) 0.25 mg tablet Discontinued 0.5 mg PO THREE TIMES A DAY May 09, 2021 12:00am September 25, 2021 9:06pm Start: 06-28-2020 End: 03-01-2021 take 2 tablets by mouth at bedtime Pramipexole (Mirapex) 0.25 mg tablet Discontinued 0.5 mg PO AT BEDTIME June 28, 2020 1:00am March 01, 2021 7:56pm Comment on above: Take 0.5 mg by mouth three times daily. proparacaine hydrochloride 5 mg/ml ophthalmic solution (4 sources) Local Anesthetic Start: 11-01-2024 End: 11-02-2024 proparacaine 0.5 % 1 Drop (ALCAINE) Start: 08-02-2024 End: 08-03-2024 proparacaine 0.5 % 1 Drop (A LCAINE) Start: 05-03-2024 End: 05-04-2024 proparacaine 0.5 % 1 Drop (A LCAINE) Start: 10-27-2023 End: 10-27-2023 proparacaine 0.5 % 1 Drop (A LCAINE) syringes BD ECLIPSE (10 sources) Start: 04-11-2023 syringes BD EC LIPSE Active 0 .Route .[facility] April 11, 2023 12:00am Bd SYR/leticia Eclipse 3ml #5782 Start: 04-11-2023 syringes BD EC LIPSE Active 0 .Route .[facility] April 10, 2023 11:00pm Bd SYR/leticia Eclipse 3ml #[id number] Start: 04-11-2023 syringes BD EC LIPSE Active 0 .ROUTE .[facility] April 10, 2023 11:00pm Bd SYR/leticia Eclipse 3ml #5782 Start: 04-11-2023 syringes BD EC LIPSE Active 0 .ROUTE .[facility] April 11, 2023 12:00am Bd SYR/leticia Eclipse 3ml #5782 tropicamide 10 mg/ml ophthalmic solution (1 source) Anticholinergic Start: 05-03-2024 End: 05-04-2024 tropicamide 1 % 1 Drop (MYDRIACYL) vortioxetine 20 mg oral tablet (20 sources) Start: 04-10-2021 End: 06-08-2024 take 1 tablet by mouth once daily vortioxetine (TRINTELLIX) 20 mg tablet Take 20 mg by mouth once daily. 05/09/2021 Active Comment on above: Once daily Take 20 mg by mouth once daily. Completed/Discontinued Medications Medication Drug Class(es) Dates Sig (Normalized) Sig (Original) acetaminophen 325 mg oral tablet (1 source) Start: 09-13-2024 End: 09-13-2024 take 1 dose by mouth once 650 mg, ORAL, ONCE, 1 dose, On Fri09/13/24 at 1530 Start: 09-13-2024 End: 09-13-2024 take 1 dose by mouth once 650 mg, ORAL, ONCE, 1 dose, On Fri09/13/24 at 1530 acetaminophen 500 mg / caffeine 60 mg / pyrilamine maleate 15 mg oral tablet (20 sources) Central Nervous System Stimulant, Methylxanthine Start: 02-15-2022 End: 04-25-2022 Tutwowiovzkbq-Ihmb-Gaaarihdf e (Midol Complete) 500-60-15 mg Tablet Discontinued {tbl} February 15, 2022 12:00am April 25, 2022 11:40am acetaminophen 500 mg / pamabrom 25 mg / pyrilamine maleate 15 mg oral tablet (20 sources) Start: 02-15-2022 End: 04-25-2022 Uhuvzttqykefm-Jlohjwrq-Cbofa am (Pamprin Multi-Symptom) 500-25-15 mg Tablet Discontinued {tbl} February 15, 2022 12:00am April 25, 2022 11:40am acyclovir 800 mg oral tablet (13 sources) Herpesvirus Nucleoside Analog DNA Polymerase Inhibitor, Herpes Simplex Virus Nucleoside Analog DNA Polymerase Inhibitor, Herpes Zoster Virus Nucleoside Analog DNA Polymerase Inhibitor Start: 04-17-2024 End: 04-19-2024 take 1 tablet by mouth five times daily Acyclovir 800 mg tablet Discontinued 800 mg PO 5 TIMES DAILY 35 April 17, 2024 12:00am April 19, 2024 11:21am Start: 04-02-2023 End: 08-13-2023 take 1 tablet by mouth five times daily Acyclovir 800 mg tablet Discontinued 800 mg PO 5 TIMES DAILY 35 7 April 02, 2023 12:00am August 13, 2023 4:39pm Albuterol Sulfate 2.5 mg /3 mL (0.083 %) solution for nebulization (3 sources) Start: 02-11-2022 End: 04-07-2023 take 2.5 mg by inhalation every six hours as needed for wheezing Albuterol Sulfate 2.5 mg /3 mL (0.083 %) solution for nebulization Discontinued 2.5 mg INHALATION EVERY 6 HOURS as needed for Sob &/Or Wheezing 180 February 11, 2022 2:56pm April 07, 2023 2:08pm amoxicillin 875 mg / clavulanate 125 mg oral tablet (20 sources) Penicillin-class Antibacterial Start: 12-26-2014 End: 06-28-2020 take 1 tablet by mouth every twelve hours Amoxicillin-Pot Clavulanate 875 MG tablet Discontinued 875 mg PO Q12H December 26, 2014 12:00am June 28, 2020 2:55pm ascorbic acid 125 mg / iron carbonyl 65 mg delayed release oral tablet (20 sources) Vitamin C Start: 06-28-2020 End: 03-01-2021 Iron,Carbonyl-Vit ruano C (Vitron-C) 65 mg iron- 125 mg tablet,delayed release (DR/EC) Discontinued 1 {tbl} PO EVERY OTHER DAY June 28, 2020 1:00am March 01, 2021 7:55pm swallow whole; do not chew/break/dissol ve/open atorvastatin 40 mg oral tablet (20 sources) HMG-CoA Reductase Inhibitor Start: 03-08-2021 End: 06-08-2024 Atorvastatin 40 mg tablet Discontinued 0 .ROUTE .COMPLEX 90 May 17, 2024 9:23am June 08, 2024 8:54am TAKE 1 TABLET DAILY Comment on above: Take 40 mg by mouth once daily. BD ECLIPSE LUER-BOZENA 3 mL 23 x 1 (20 sources) Start: 05-14-2022 End: 09-14-2024 BD ECLIPSE LUER-BOZENA 3 mL 23 x 1 05/14/2022 09/14/2024 Discontinued (Discontinued by Patient) Start: 05-14-2022 BD ECLIPSE LUE R-BOZENA 3 mL 23 x 1 05/14/2022 Active Start: 05-14-2022 BD ECLIPSE LUE R-BOZENA 3 mL 23 x 1 benzonatate 100 mg oral capsule (20 sources) Non-narcotic Antitussive Start: 03-21-2022 End: 06-07-2022 Benzonatate 100 mg capsule Discontinued 100 mg PO 2 to 3 times per day as needed March 21, 2022 12:00am June 07, 2022 1:08pm bisacodyl 10 mg rectal suppository (8 sources) Stimulant Laxative Start: 11-07-2021 End: 04-11-2022 bisacodyl (DULCOLAX) 10 mg supp as needed. 0 11/07/2021 04/11/2022 Discontinued (Discontinued by Patient) Start: 11-07-2021 Bisacodyl Acti ve 10 MG RC DAILY November 07, 2021 2:23pm Comment on above: as needed. cefdinir 300 mg oral capsule (20 sources) Cephalosporin Antibacterial Start: End: take 1 capsule by mouth twice daily Cefdinir 300 mg capsule Discontinued 300 mg PO TWICE A DAY September 04, 2021 1:07pm September 25, 2021 9:06pm Start: 02-13-2021 End: 03-01-2021 take 1 capsule by mouth twice daily Cefdinir 300 mg capsule Discontinued 300 mg PO TWICE A DAY February 13, 2021 5:04pm March 01, 2021 7:55pm 5 days cephalexin 500 mg oral capsule (3 sources) Cephalosporin Antibacterial Start: 05-04-2024 End: 06-07-2024 take 1 capsule by mouth three times daily Cephalexin 500 mg capsule Discontinued 500 mg PO THREE TIMES A DAY May 04, 2024 12:00am June 07, 2024 9:08am cholecalciferol 0.025 mg oral capsule (20 sources) Vitamin D Start: 09-02-2021 End: 04-25-2022 take 1 capsule by mouth once daily Cholecalciferol (Vitamin D3) (Vitamin D3) 25 mcg (1,000 unit) Capsule Discontinued 25 ug PO DAILY September 02, 2021 1:00am April 25, 2022 11:40am Start: 01-29-2021 End: 03-01-2021 take 1 capsule by mouth once daily Cholecalciferol (Vitamin D3) (Vitamin D3) 50 mcg (2,000 unit) Capsule Discontinued 50 ug PO DAILY January 29, 2021 12:00am March 01, 2021 7:55pm Start: 08-02-2020 End: 03-01-2021 take 1 capsule by mouth every month Cholecalciferol (Vitamin D3) 50 mcg (2,000 unit) capsule Discontinued 35163 U PO EVERY MONTH August 02, 2020 2:26pm March 01, 2021 7:55pm Start: 06-28-2020 End: 08-02-2020 take 1 capsule by mouth once daily Cholecalciferol (Vitamin D3) 50 mcg (2,000 unit) capsule Discontinued 50 ug PO DAILY June 28, 2020 1:00am August 02, 2020 2:28pm Cranberry (20 sources) Non-Standardized Food Allergenic Extract, Non-Standardized Plant Allergenic Extract Start: 06-07-2022 End: 01-08-2023 take 1 capsule by mouth once daily at mealtime Cranberry 500 mg capsule Discontinued 500 mg PO DAILY June 07, 2022 12:00am January 08, 2023 11:52am administer with meals Start: 06-07-2022 End: 01-08-2023 take 500 mg by mouth once daily at mealtime Cranberry Discontinued 500 MG PO DAILY June 06, 2022 11:00pm January 08, 2023 10:52am administer with meals Start: 06-07-2022 End: 01-08-2023 take 500 mg by mouth once daily at mealtime Cranberry Discontinued 500 MG PO DAILY June 07, 2022 12:00am January 08, 2023 11:52am administer with meals Start: 06-07-2022 take 500 mg by mouth once daily at mealtime Cranberry Active 500 MG PO DAILY June 07, 2022 12:00am administer with meals Start: 06-07-2022 take 500 mg by mouth once daily at mealtime Cranberry Active 500 MG PO DAILY June 06, 2022 11:00pm administer with meals Start: 09-02-2021 End: 09-25-2021 take 500 mg by mouth once daily Cranberry Discontinued 500 MG PO DAILY September 02, 2021 6:11pm September 25, 2021 9:06pm Start: 09-02-2021 End: 09-25-2021 take 1 capsule by mouth once daily Cranberry 500 mg Capsule Discontinued 500 mg PO DAILY September 02, 2021 1:00am September 25, 2021 9:06pm Start: 09-02-2021 End: 09-25-2021 take 500 mg by mouth once daily Cranberry Discontinued 500 MG PO DAILY September 02, 2021 12:00am September 25, 2021 8:06pm Start: 09-02-2021 End: 09-25-2021 take 500 mg by mouth once daily Cranberry Discontinued 500 MG PO DAILY September 02, 2021 1:00am September 25, 2021 9:06pm Cyanocobalamin (Vitamin B-12 ) (Dodex) 1,000 mcg/mL solution (6 sources) Start: 07-22-2023 End: 09-18-2023 Cyanocobalamin (Vitamin B-12 ) (Dodex) 1,000 mcg/mL solution Discontinued 1000 ug IM EVERY MONTH July 22, 2023 12:20pm September 18, 2023 11:39am 1 mL vials. Start: 07-22-2023 End: 09-18-2023 inject 1000 ug by intramuscular injection every month Cyanocobalamin (Vitamin B-12) (Dodex) 1,000 mcg/mL solution Discontinued 1000 MCG IM EVERY MONTH July 22, 2023 12:20pm September 18, 2023 11:39am 1 mL vials. Start: 07-22-2023 End: 09-18-2023 inject 1000 ug by intramuscular injection every month Cyanocobalamin (Vitamin B-12) (Dodex) 1,000 mcg/mL solution Discontinued 1000 MCG IM EVERY MONTH July 22, 2023 11:20am September 18, 2023 10:39am 1 mL vials. D marlo (20 sources) Start: 03-20-2022 End: 06-07-2022 D marlo Discontinued PO Augu st 2021 12:00am June 07, 2022 1:08pm Start: 03-20-2022 End: 06-07-2022 D marlo Discontinued PO Augu st 2021 11:00pm June 07, 2022 12:08pm 1 ml denosumab 60 mg/ml prefilled syringe (20 sources) RANK Ligand Inhibitor Start: 06-07-2022 End: 02-18-2024 Denosumab (Prolia) 60 mg/mL syringe Discontinued 60 mg SC every 6 months February 05, 2023 10:22am February 18, 2024 10:21am Start: 06-28-2020 End: 03-01-2021 Denosumab (Prolia) 60 mg/mL syringe Discontinued 60 mg SC every 6 months November 21, 2020 12:21pm February 13, 2021 5:04pm denosumab (PROLI A SUBCUTANEOUS) Inject 1 Dose subcutaneously once every 6 months. Last injection November 2020 Suspended denosumab (PROLI A SUBCUTANEOUS) Inject 1 Dose subcutaneously once every 6 months. Last injection November 2020 Active denosumab (PROLI A SUBCUTANEOUS) Inject 1 Dose subcutaneously once every 6 months. Last injection November 2020 0 Active Comment on above: Inject 1 Dose subcut aneously once every 6 months. Last injection November 2020 diazePAM 2 mg oral tablet (7 sources) Benzodiazepine Start: 03-16-20 End: 06-18-20 take 1 tablet by mouth at bedtime as needed for anxiety Diazepam (Valium) 2 mg tablet Discontinued 2 mg PO AT BEDTIME as needed for anxiety March 16, 2024 12:00am June 07, 2024 9:10am esomeprazole 40 mg delayed release oral capsule (20 sources) Proton Pump Inhibitor Start: 06-28-20 End: 03-01-20 take 1 capsule by mouth once daily Esomeprazole Magnesium (Nexium) 40 mg capsule,delayed release(DR/EC) Discontinued 40 mg PO DAILY February 13, 2021 5:04pm March 01, 2021 7:55pm ezetimibe 10 mg oral tablet (20 sources) Dietary Cholesterol Absorption Inhibitor Start: 06-28-20 End: 03-01-20 take 1 tablet by mouth once daily Ezetimibe (Zetia) 10 mg tablet Discontinued 10 mg PO DAILY December 04, 2020 4:33pm February 13, 2021 5:04pm fluconazole 10 mg/ml oral suspension (20 sources) Azole Antifungal Start: 02-16-20 End: 04-25-20 Fluconazole 10 mg/mL Suspension For Reconstitution Discontinued mg February 15, 2022 12:00am April 25, 2022 11:41am Start: 02-15-2022 End: 04-25-2022 Fluconazole Discontinued MG February 15, 2022 12:00am April 25, 2022 11:41am hyoscyamine sulfate 0.125 mg oral tablet (20 sources) Start: 06-28-2020 End: 03-01-2021 take 1 tablet by mouth twice daily Hyoscyamine Sulfate 0.125 mg tablet Discontinued 0.125 mg PO TWICE A DAY February 13, 2021 5:04pm March 01, 2021 7:55pm Ibuprofen (3 sources) Nonsteroidal Anti-inflammatory Drug End: 04-11-2022 IBUPROFEN ORAL Take by mouth as needed. 0 04/11/2022 Discontinued (Discontinued by Patient) IBUPROFEN ORAL T fred by mouth as needed. 0 Active Comment on above: Take by mouth as nee ded. Ipratropium [place] 42 mcg (0.06 %) spray,non-aerosol (3 sources) Start: 10-08-2023 End: 03-16-2024 Ipratropium [place] 42 mcg (0.06 %) spray,non-aerosol Discontinued 2 NMA INTRANASAL TWICE A DAY October 08, 2023 1:00am March 16, 2024 11:14am labetalol hydrochloride 5 mg/ml injectable solution (1 source) beta-Adrenergic Oxana Start: 09-13-2024 End: 09-13-2024 10 mg, INTRAVENOUS, ONCE, 1 dose, On Fri09/13/24 at 1500, Protect from Light. Start: 09-13-2024 End: 09-13-2024 10 mg, INTRAVENOUS, ONCE, 1 dose, On Fri09/13/24 at 1500, Protect from Light. levothyroxine sodium 0.05 mg oral tablet (20 sources) l-Thyroxine Start: 01-29-2023 End: 10-08-2023 Levothyroxine 50 mcg tablet Discontinued 25 ug PO DAILY October 06, 2023 11:35am October 08, 2023 3:30pm Start: 01-29-2023 End: 10-08-2023 take 25 ug by mouth once daily Levothyroxine Discontin ued 25 MCG PO DAILY October 06, 2023 11:35am October 08, 2023 3:30pm Start: 03-30-2021 End: 06-08-2024 take 1 tablet by mouth once daily levothyroxine (SYNTHROID) 50 mcg tablet Take 50 mcg by mouth once daily. 03/30/2021 Active Start: 03-08-2021 End: 12-03-2022 take 1 tablet by mouth once daily Levothyroxine (Synthroid) 25 mcg tablet Discontinued 25 ug PO DAILY August 22, 2022 2:34pm December 03, 2022 5:55pm Comment on above: Take 25 mcg by mouth once daily. lidocaine 0.05 mg/mg medicated patch (3 sources) Antiarrhythmic, Amide Local Anesthetic Start: End: Lidocaine (Lidoderm) 5 % adhesive patch,medicated Discontinued 1 NMA TOPICAL DAILY September 18, 2024 1:00am October 14, 2024 2:12pm leave on most painful area for up to 12 hrs LORazepam 0.5 mg oral tablet (1 source) Benzodiazepine Start: End: 3 take 1 tablet by mouth once LORazepam (ATIVAN) 0.5 mg Indications: Anxiety Take 1 tablet by mouth one time only for 1 dose. Please take 30-40 mins before MRI 1 tablet 0 11/13/2022 11/13/2022 Comment on above: Take 1 tablet by [facility] one time only for 1 dose. Please take 30-40 mins before MRI magnesium hydroxide 80 mg/ml oral suspension (8 sources) Start: End: magnesium hydroxide (MOM) 400 mg/5 mL suspension Take by mouth as needed. 0 11/07/2021 04/11/2022 Discontinued (Discontinued by Patient) Start: 11-07-2021 take 1 mL by mouth once daily Magnesium Hydroxide (Milk Of Magnesia) 400 mg/5 mL suspension Active 30 ML PO DAILY November 07, 2021 2:24pm Comment on above: Take by mouth as nee ded. meclizine hydrochloride 25 mg oral tablet (18 sources) Antiemetic Start : 01-01 End: 10-08 take 1 tablet by mouth twice daily as needed for dizziness Meclizine 25 mg tablet Discontinued 25 mg PO TWICE A DAY as needed for dizziness January 01, 2023 12:00am October 08, 2023 3:29pm Comment on above: Take 25 mg by mouth as needed. meloxicam 7.5 mg oral tablet (20 sources) Nonsteroidal Anti-inflammatory Drug Start : 08-03 End: 11-06 take 1 tablet by mouth once daily as needed for pain Meloxicam 7.5 mg tablet Discontinued 7.5 mg PO DAILY as needed for pain August 03, 2020 1:00am November 06, 2020 1:33pm methylPREDNISolone 4 mg oral tablet (14 sources) Corticosteroid Start : 03-16 End: 04-05 take 1 tablet by mouth once Methylprednisolone (Medrol (Devan)) 4 mg tablets,dose pack Discontinued 0 PO per package directions March 16, 2024 12:00am April 05, 2024 2:23pm PO PER PKG DIR Start: 03-24-2023 End: 04-07-2023 take 1 tablet by mouth once Methylprednisolone (Medrol (Devan)) 4 mg tablets,dose pack Discontinued 0 PO per package directions March 24, 2023 12:00am April 07, 2023 1:58pm PO PER PKG DIR midodrine hydrochloride 2.5 mg oral tablet (15 sources) alpha-Adrenergic Agonist Start: 01-08-2023 End: 01-29-2023 take 1 tablet by mouth twice daily Midodrine 2.5 mg tablet Discontinued 2.5 mg PO TWICE A DAY January 08, 2023 12:00am January 29, 2023 3:43pm mineral oil 1000 mg/ml enema (8 sources) Start: 11-07-2021 End: 04-11-2022 mineral oil (FLEET MINERAL OIL ENEMA) enema as needed. 0 11/07/2021 04/11/2022 Discontinued (Discontinued by Patient) Start: 11-07-2021 Mineral Oil (F leet Mineral Oil) enema Active 118 ML RC DAILY November 07, 2021 2:23pm discard any unused portion Comment on above: as needed. mirtazapine 15 mg oral tablet (8 sources) Start: 09-26-2021 End: 04-11-2022 mirtazapine (REMERON) 15 mg tablet 7.5 mg daily at bedtime. 0 09/26/2021 04/11/2022 Discontinued (Discontinued by Patient) Start: 09-25-2021 take 7.5 mg by mouth at bedtim e Mirtazapine Active 7.5 MG PO AT BEDTIME September 25, 2021 9:05pm Comment on above: 7.5 mg daily at bedt arun. montelukast 10 mg oral tablet (20 sources) Leukotriene Receptor Antagonist Start: 06-28-20 End: 03-01-20 take 1 tablet by mouth once daily Montelukast (Singulair) 10 mg tablet Discontinued 10 mg PO DAILY February 13, 2021 5:04pm March 01, 2021 7:55pm moxifloxacin (2 sources) Quinolone Antimicrobial End: 03-14-20 moxifloxacin HCl (AVELOX ORAL) Take by mouth. 03/14/2023 Discontinued moxifloxacin HCl (AVELOX ORAL) Take by mouth. 0 Active Comment on above: Take by mouth. OTC NUTRITIONAL SUPPLEMENT (3 sources) End: 04-11-2022 OTC NUTRITIONAL SUPPLEMENT once daily. Vitamin D3 0 04/11/2022 Discontinued (Discontinued by Patient) OTC NUTRITIONAL SUPPLEMENT once daily. Vitamin D3 0 Active Comment on above: once daily. Vitamin D3 24 hr oxybutynin chloride 10 mg extended release oral tablet (8 sources) Cholinergic Muscarinic Antagonist Start: End: take 1 tablet by mouth once daily oxybutynin ER (DITROPAN XL) 10 mg 24 hr tablet Take by mouth once daily. 0 11/07/2021 04/11/2022 Discontinued (Discontinued by Patient) Comment on above: Take by mouth once d aily. pravastatin sodium 40 mg oral tablet (20 sources) HMG-CoA Reductase Inhibitor Start: End: take 1 tablet by mouth once daily Pravastatin 40 mg tablet Discontinued 40 mg PO DAILY February 13, 2021 5:04pm March 01, 2021 7:56pm predniSONE 20 mg oral tablet (20 sources) Start: End: take 1 tablet by mouth once daily Prednisone 20 mg Tablet Discontinued 20 mg PO DAILY March 08, 2021 12:00am May 09, 2021 9:59am tapering dose sertraline 100 mg oral tablet (20 sources) Serotonin Reuptake Inhibitor Start: End: take 1 tablet by mouth at bedtime Sertraline (Zoloft) 100 mg tablet Discontinued 100 mg PO AT BEDTIME February 13, 2021 5:04pm March 01, 2021 7:56pm spironolactone 25 mg oral tablet (20 sources) Aldosterone Antagonist Start: End: take 1 tablet by mouth at bedtime Spironolactone (Aldactone) 25 mg tablet Discontinued 25 mg PO AT BEDTIME June 28, 2020 1:00am March 01, 2021 7:56pm sulfamethoxazole 800 mg / trimethoprim 160 mg oral tablet (3 sources) Dihydrofolate Reductase Inhibitor Antibacterial, Sulfonamide Antimicrobial Start: End: Sulfamethoxazole-Trim ethoprim (Bactrim Ds) 800-160 mg tablet Discontinued 1 {tbl} PO TWICE A DAY 06 06June 05, 2024 12:00am June 14, 2024 12:00am June 15, 2024 12:08am 24 hr tolterodine tartrate 4 mg extended release oral capsule (20 sources) Cholinergic Muscarinic Antagonist Start: End: take 1 capsule by mouth once daily Tolterodine (Detrol La) 4 mg capsule,extended release 24hr Discontinued 4 mg PO DAILY January 10, 2022 12:00am January 29, 2023 3:42pm Start: 06-28-2020 End: 11-07-2021 take 1 capsule by mouth once daily Tolterodine (Detrol La) 4 mg capsule,extended release 24hr Discontinued 4 mg PO DAILY November 06, 2020 1:05pm November 07, 2021 2:27pm Comment on above: Take 4 mg by mouth o nce daily. torsemide 20 mg oral tablet (3 sources) Loop Diuretic Start: 12-20-2024 End: 12-24-2024 take 1 tablet by mouth once daily torsemide (DEMADEX) 20 mg tablet Take 1 tablet by mouth once daily. 90 tablet 3 12/20/2024 12/24/2024 Discontinued Tramadol (20 sources) Opioid Agonist Start: 10-14-2024 End: 10-28-2024 take 1 tablet by mouth every six hours Tramadol 25 mg tablet Discontinued 25 mg PO EVERY 6 HOURS 56 14 October 14, 2024 2:37pm October 27, 2024 12:00am October 28, 2024 12:13am Start: 10-14-2024 End: 10-14-2024 Tramadol 50 mg tablet Discon tinued mg PO October 14, 2024 1:00am October 14, 2024 5:12pm Start: 10-12-2024 End: 10-22-2024 take 0.5 tablet by mouth every four hours as needed for pain traMADol (ULTRAM) 50 mg tablet Indications: Pain of upper abdomen Take 0.5 tablets by mouth every 4 hours as needed for pain for up to 10 days. 30 tablet 10/12/2024 10/22/2024 Active Start: 07-13-2022 End: 10-12-2024 traMADol (ULTRAM) 50 mg tabl et Take 25 mg by mouth two times a day. 07/13/2022 10/12/2024 Discontinued Start: 07-13-2022 End: 10-08-2023 take 1 tablet by mouth three times daily as needed for pain Tramadol 50 mg tablet Discontinued 50 mg PO THREE TIMES A DAY as needed for pain 12 July 13, 2022 1:00am October 08, 2023 3:29pm take 1 tablet by ricki th every six hours as needed traMADol 25 mg tablet Take 25 mg by mouth every 6 hours as needed. Suspended take 1 tablet by ricki th every six hours as needed traMADol 25 mg tablet Take 25 mg by mouth every 6 hours as needed. Active Comment on above: Take 50 mg by mouth as needed. valACYclovir 500 mg oral tablet (11 sources) Herpesvirus Nucleoside Analog DNA Polymerase Inhibitor, Herpes Simplex Virus Nucleoside Analog DNA Polymerase Inhibitor, Herpes Zoster Virus Nucleoside Analog DNA Polymerase Inhibitor Start: End: 4 take 2 tablets by mouth every eight hours Valacyclovir 500 mg tablet Discontinued 1000 mg PO EVERY 8 HOURS April 23, 2024 3:59pm June 07, 2024 9:12am Start: 04-02-2023 Valacyclovir ( Valtrex) 1 gram tablet Active 1000 MG PO THREE TIMES A DAY 07 03April 02, 2023 12:00am End: 06-18-2024 take 2 tablets by mouth three times daily valACYclovir (VALTREX) 500 mg tablet Take 1,000 mg by mouth three times a day. 06/18/2024 Discontinued (Course of therapy completed) vitamin b12 1 mg/ml injectable solution (20 sources) Vitamin B12 Start: 09-18-2023 End: 06-05-2024 Cyanocobalamin (Vitamin B-12) (Dodex) 1,000 mcg/mL solution Discontinued 1000 ug IM EVERY MONTH December 08, 2023 8:02am June 05, 2024 8:20am 1 mL vials. Start: 08-15-2022 End: 07-22-2023 Cyanocobalamin (Vitamin B-12 ) (Dodex) 1,000 mcg/mL solution Discontinued 1000 ug IM EVERY MONTH August 15, 2022 2:10pm July 22, 2023 12:21pm Start: 04-25-2022 End: 08-15-2022 inject 100 ug by intramuscular injection every month Cyanocobalamin (Vitamin B-12) (Dodex) 1,000 mcg/mL solution Discontinued 100 ug IM EVERY MONTH April 25, 2022 12:00am August 15, 2022 2:10pm Problems Active Problems Problem Classification Problem Date Documented Da te Episodic/Chronic Abdominal pain (6 sources) Epigastric pain; 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: [Epigastric pain] Onset: 5 09-03-2024 Episodic Acute and unspecified renal failure (20 sources) Injury of kidney; 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: [Acute kidney failure, unspecified] 02-11-2021 Episodic Acute bronchitis (20 sources) Acute bronchitis; 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: [Acute bronchitis, unspecified] Episodic Acute cerebrovascular disease (20 sources) Cerebrovascular accident; 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: [Cerebral infarction, unspecified] 02-10-2021 Chronic Acute myocardial infarction (20 sources) Myocardial infarction; 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: [Acute myocardial infarction, unspecified] 10-07-2020 Chronic Administrative/social admission (2 sources) Persons encountering health services in other specified circumstances; 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: [Other reasons for seeking consultation] Episodic Anxiety disorders (3 sources) Anxiety; 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: [Anxiety disorder, unspecified] Chronic Biliary tract disease (9 sources) Disorder of biliary tract; 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: [Other specified diseases of biliary tract] Onset: 5 11-17-2024 Chronic Biliary tract disease (4 sources) Common bile duct calculus; 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: [Calculus of bile duct without cholangitis or cholecystitis without obstruction] Onset: 5 09-13-2024 Episodic Chronic obstructive pulmonary disease and bronchiectasis (20 sources) Bronchiectasis; 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: [Bronchiectasis, uncomplicated] Onset: 4 Chronic Comment on above: Lingular subsegment Conduction disorders (1 source) Cardiac pacemaker in situ; 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: [Presence of cardiac pacemaker] Onset: 4 07-19-2024 Chronic Coronary atherosclerosis and other heart disease (20 sources) Coronary atherosclerosis; 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: [Atherosclerotic heart disease of [place] coronary artery without angina pectoris] Onset: 1 Chronic Delirium, dementia, and amnestic and other cognitive disorders (20 sources) Dementia; 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: [Unspecified dementia without behavioral disturbance] Onset: 1 Chronic Disorders of lipid metabolism (20 sources) Hyperlipidemia; 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: [Hyperlipidemia, unspecified] Onset: 3 Chronic E Codes: Fall (20 sources) Fall; 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: [Unspecified fall, initial encounter] Episodic Epilepsy; convulsions (20 sources) Seizure disorder; 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: [Epilepsy, unspecified, not intractable, without status epilepticus] Onset: 9 Resolved: 5 Chronic Esophageal disorders (20 sources) Gastroesophageal reflux disease; 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: [Gastro-esophageal reflux disease without esophagitis] Onset: 4 Resolved: 5 Chronic Essential hypertension (20 sources) Hypertensive disorder; 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: [Essential (primary) hypertension] Onset: 7 Chronic Fracture of upper limb (20 sources) Fracture of radius; 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: [Unspecified fracture of unspecified forearm, initial encounter for closed fracture] 06-28-2020 Episodic Glaucoma (6 sources) Primary open angle glaucoma; 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: [Primary open-angle glaucoma, bilateral, severe stage] Onset: 5 10-27-2023 Chronic Heart valve disorders (20 sources) Tricuspid valve regurgitation; 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: [Rheumatic tricuspid insufficiency] Onset: 5 09-14-2024 Chronic Immunizations and screening for infectious disease (20 sources) Contact with and (suspected) exposure to other viral communicable diseases; 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: [Contact with or suspected exposure to other viral communicable disease] 10-23-2022 Episodic Influenza (20 sources) Influenza due to Influenza A virus; 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: [Influenza due to other identified influenza virus with other respiratory manifestations] 05-28-2022 Episodic Joint disorders and dislocations; trauma-related (4 sources) Chronic instability of left knee joint; 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: [Chronic instability of knee, left knee] Onset: 4 07-12-2024 Chronic Malignant neoplasm without specification of site (20 sources) Malignant neoplastic disease; 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: [Malignant (primary) neoplasm, unspecified] 01-02-2023 Chronic Comment on above: BREAST/LUMPECTOMY LE FT/RADIATION/LYMPHADEMA Mood disorders (20 sources) Depressive disorder; 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: [Depression, unspecified depression type] Chronic Mood disorders (2 sources) Mood disorders; 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: [Depression, unspecified depression type] Onset: 5 Multiple sclerosis (20 sources) Multiple sclerosis; 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: [Multiple sclerosis] Onset: 4 Resolved: 5 07-19-2024 Chronic Nausea and vomiting (6 sources) Nausea and vomiting; 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: [Nausea with vomiting, unspecified] Onset: 5 09-03-2024 Episodic Nonmalignant breast conditions (20 sources) Lump of upper inner quadrant of breast; 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: [Unspecified lump in the left breast, upper inner quadrant] 01-08-2023 Episodic Nutritional deficiencies (20 sources) Vitamin D deficiency; 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: [Vitamin D deficiency, unspecified] Onset: 5 03-12-2021 Chronic Open wounds of extremities (5 sources) Open wound of lower limb; 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: [Unspecified open wound, right lower leg, initial encounter] Onset: 5 05-04-2024 Episodic Open wounds of head; neck; and trunk (20 sources) Scalp laceration; 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: [Laceration without foreign body of scalp, initial encounter] 07-21-2022 Episodic Osteoarthritis (14 sources) Osteoarthritis of left knee joint; 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: [Unilateral primary osteoarthritis, left knee] Onset: 4 07-19-2024 Chronic Osteoporosis (20 sources) Osteoporosis; 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: [Age-related osteoporosis without current pathological fracture] Onset: 4 Chronic Comment on above: Kyphoscoliosis Other acquired deformities (2 sources) Postural kyphosis; 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: [Postural kyphosis, thoracic region] 03-25-2024 Chronic Other acquired deformities (20 sources) Kyphosis deformity of spine; 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: [Unspecified kyphosis, site unspecified] 09-14-2024 Chronic Other acquired deformities (9 sources) Kyphoscoliosis deformity of spine; 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: [Scoliosis, unspecified] 04-05-2024 Chronic Other acquired deformities (1 source) Unspecified kyphosis, site unspecified; 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: [Kyphosis, unspecified kyphosis type, unspecified spinal region] Onset: 5 Chronic Other acquired deformities (1 source) Scoliosis, unspecified; 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: [Scoliosis, unspecified] Onset: 5 Chronic Other acquired deformities (12 sources) Deformity of sternum; 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: [Acquired deformity of chest and rib] 02-12-2023 Episodic Other aftercare (20 sources) Long-term current use of anticoagulant; 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: [USP (current) use of anticoagulants] 03-23-2022 Episodic Other aftercare (20 sources) Surgical follow-up; 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: [Encounter for removal of sutures] 07-24-2022 Episodic Other aftercare (4 sources) Encounter for removal of sutures; 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: [Encounter for removal of sutures] Episodic Other aftercare (3 sources) Drug therapy finding; 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: [terminal gauger (current) use of anticoagulants] 06-15-2024 Episodic Other bone disease and musculoskeletal deformities (2 sources) Idiopathic kyphoscoliosis; 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: [Other idiopathic scoliosis, site unspecified] 07-01-2024 Chronic Other bone disease and musculoskeletal deformities (1 source) Adolescent idiopathic scoliosis, thoracolumbar region; 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: [Adolescent idiopathic scoliosis of thoracolumbar region] Onset: 5 Chronic Other bone disease and musculoskeletal deformities (1 source) Other idiopathic scoliosis, site unspecified; 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: [Idiopathic scoliosis and kyphoscoliosis] Onset: 5 Chronic Other bone disease and musculoskeletal deformities (20 sources) Costal chondritis; 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: [Chondrocostal junction syndrome [Tietze]] 10-12-2021 Episodic Other bone disease and musculoskeletal deformities (4 sources) Chondrocostal junction syndrome [Tietze]; 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: [Tietze's disease] Episodic Other circulatory disease (3 sources) Carotid bruit; 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: [Other specified symptoms and signs involving the circulatory and respiratory systems] 08-03-2024 Episodic Other circulatory disease (20 sources) History of transient ischemic attack; 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: [Personal history of transient ischemic attack (TIA), and cerebral 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] 09-14-2024 Episodic Other circulatory disease (1 source) Other specified symptoms and signs involving the circulatory and respiratory systems; 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: [Carotid bruit, unspecified laterality] Onset: 5 Episodic Other connective tissue disease (17 sources) Bursitis of olecranon of left elbow; 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: [Olecranon bursitis, left elbow] 10-16-2022 Episodic Other connective tissue disease (15 sources) Pain in left lower limb; 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: [Pain in left leg] 12-25-2022 Episodic Other connective tissue disease (5 sources) Pain in left leg; 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: [Pain in limb] 12-25-2022 Episodic Other connective tissue disease (10 sources) Increased muscle tone; 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: [Other specified disorders of muscle] 04-22-2023 Episodic Other connective tissue disease (12 sources) Fine motor impairment ; 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: [Other symptoms and signs involving the nervous system] 06-16-2023 Episodic Other connective tissue disease (2 sources) Other symptoms and signs involving the nervous system; 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: [Fine motor impairment] Onset: 5 Episodic Other connective tissue disease (2 sources) Other symptoms and signs involving the musculoskeletal system; 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: [Fine motor impairment] Onset: 5 Episodic Other diseases of bladder and urethra (20 sources) Overactive bladder; 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: [Overactive bladder] Onset: 4 02-13-2021 Chronic Other diseases of bladder and urethra (14 sources) Overactive bladder; 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: [Hypertonicity of bladder] Onset: 4 Chronic Other diseases of kidney and ureters (20 sources) Acute renal insufficiency; 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: [Disorder of kidney and ureter, unspecified] 02-10-2021 Episodic Other endocrine disorders (20 sources) Hypoglycemia; 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: [Hypoglycemia, unspecified] 09-14-2024 Chronic Other endocrine disorders (1 source) Hypoglycemia, unspecified; 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: [Hypoglycemia] Onset: 5 Chronic Other fractures (20 sources) Compression fracture of thoracic spine; 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: [Collapsed vertebra, not elsewhere classified, thoracic region, initial encounter for fracture] 10-12-2021 Episodic Other fractures (20 sources) Fracture of rib; 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: [Fracture of one rib, right side, initial encounter for closed fracture] 10-12-2021 Episodic Other fractures (4 sources) Collapsed vertebra, not elsewhere classified, thoracic region, initial encounter for fracture; 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: [Pathologic fracture of vertebrae] Episodic Other fractures (4 sources) Fracture of one rib, right side, initial encounter for closed fracture; 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: [Closed fracture of rib(s), unspecified] Episodic Other fractures (6 sources) Fracture of right rib; 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: [Fracture of one rib, right side, initial encounter for closed fracture] 10-12-2021 Episodic Other gastrointestinal disorders (20 sources) Dysphagia; 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: [Dysphagia, unspecified] 02-06-2021 Episodic Other gastrointestinal disorders (20 sources) Esophageal dysphagia; 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: [Other dysphagia] 09-29-2020 Episodic Other gastrointestinal disorders (20 sources) Constipation; 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: [Other constipation] 04-25-2022 Episodic Other gastrointestinal disorders (3 sources) Other constipation; 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: [Other constipation] Episodic Other gastrointestinal disorders (12 sources) Diarrhea; 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: [Diarrhea, unspecified] Onset: 5 11-15-2024 Episodic Other gastrointestinal disorders (1 source) Diarrhea, unspecified; 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: [Diarrhea] Onset: 5 Episodic Other hereditary and degenerative nervous system conditions (20 sources) Restless legs; 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: [Restless legs syndrome] Onset: 7 09-04-2021 Chronic Other hereditary and degenerative nervous system conditions (20 sources) Restless legs syndrome; 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: [Restless legs syndrome (RLS)] Onset: Chronic Other inflammatory condition of skin (18 sources) Itching of skin; 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: [Pruritus, unspecified] 10-08-2020 Episodic Other inflammatory condition of skin (14 sources) Pruritus, unspecified; 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: [Pruritus] 10-08-2020 Episodic Other injuries and conditions due to external causes (20 sources) Closed injury of head; 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: [Unspecified injury of head, initial encounter] 03-23-2022 Episodic Other injuries and conditions due to external causes (20 sources) Injury of head; 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: [Unspecified injury of head, initial encounter] 07-21-2022 Episodic Other injuries and conditions due to external causes (11 sources) Injury of elbow; 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: [Unspecified injury of left elbow, initial encounter] 09-21-2022 Episodic Other injuries and conditions due to external causes (18 sources) Injury of left shoulder; 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: [Unspecified injury of left shoulder and upper arm, initial encounter] 09-21-2022 Episodic Other injuries and conditions due to external causes (7 sources) Injury of left elbow region; 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: [Unspecified injury of left elbow, initial encounter] 09-21-2022 Episodic Other lower respiratory disease (20 sources) Dyspnea on exertion; 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: [Shortness of breath] 05-09-2021 Episodic Comment on above: UNABLE TO WALK STAIR S/SOB WITH EXERTION Other lower respiratory disease (20 sources) Hypoxemia; 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: [Hypoxemia] 03-08-2021 Episodic Other lower respiratory disease (20 sources) Dyspnea; 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: [Dyspnea, unspecified] 09-29-2020 Episodic Other lower respiratory disease (20 sources) Respiratory insufficiency; 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: [Other abnormalities of breathing] 03-09-2021 Episodic Other lower respiratory disease (20 sources) Hypoxemia; 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: [Hypoxemia] Episodic Other lower respiratory disease (3 sources) Other forms of dyspnea; 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: [Other respiratory abnormalities] 05-12-2023 Episodic Other nervous system disorders (20 sources) Disorder of brain; 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: [Encephalopathy, unspecified] 03-12-2021 Chronic Other nervous system disorders (20 sources) Complex regional pain syndrome; 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: [Complex regional pain syndrome I, unspecified] 08-02-2020 Chronic Other nervous system disorders (20 sources) Unable to walk; 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: [Difficulty in walking, not elsewhere classified] 02-23-2022 Chronic Other nervous system disorders (3 sources) Cognitive deficit in communication skills; 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: [Cognitive communication deficit] Chronic Other nervous system disorders (2 sources) Neuropathy; 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: [Polyneuropathy, unspecified] 08-06-2024 Chronic Other nervous system disorders (1 source) Lesion of right ulnar nerve; 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: [Lesion of ulnar nerve, right upper limb] 09-10-2024 Chronic Other nervous system disorders (20 sources) Chronic pain; 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: [Other chronic pain] 09-14-2024 Chronic Other nervous system disorders (1 source) Ulnar neuropathy of right arm; 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: [Lesion of ulnar nerve, right upper limb] 11-03-2024 Chronic Other nervous system disorders (1 source) Idiopathic peripheral neuropathy; 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: [Hereditary and idiopathic neuropathy, unspecified] 12-23-2024 Chronic Other nervous system disorders (1 source) Cognitive communication deficit; 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: [Cognitive communication deficit] Onset: 5 Chronic Other nervous system disorders (1 source) Hereditary and idiopathic neuropathy, unspecified; 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: [Idiopathic peripheral neuropathy] Onset: 5 Chronic Other nervous system disorders (1 source) Lesion of ulnar nerve, right upper limb; 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: [Ulnar neuropathy of right upper extremity] Onset: 5 Chronic Other nervous system disorders (1 source) Other chronic pain; 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: [Other chronic pain] Onset: 5 Chronic Other nervous system disorders (1 source) Polyneuropathy, unspecified; 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: [Neuropathy] Onset: 5 Chronic Other nervous system disorders (1 source) Complex regional pain syndrome I, unspecified; 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: [Complex regional pain syndrome I, unspecified] Onset: 5 Chronic Other nervous system disorders (18 sources) Impairment of balance; 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: [Other abnormalities of gait and mobility] 10-07-2022 Episodic Other nervous system disorders (3 sources) Paresthesia of foot ; 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: [Paresthesia of skin] 07-01-2024 Episodic Other nervous system disorders (5 sources) Incoordination; 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: [Unspecified lack of coordination] 10-29-2024 Episodic Other nervous system disorders (2 sources) Paresthesia of left lower limb; 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: [Paresthesia of skin] 11-03-2024 Episodic Other nervous system disorders (2 sources) Paresthesia of right lower limb; 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: [Paresthesia of skin] 11-03-2024 Episodic Other nervous system disorders (1 source) Unspecified lack of coordination; 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: [Lack of coordination] Onset: 5 Episodic Other nervous system disorders (1 source) Unsteadiness on feet; 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: [Gait instability] Onset: 5 Episodic Other nervous system disorders (3 sources) Paresthesia of skin; 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: [Left leg paresthesias] Onset: 4 Episodic Other non-traumatic joint disorders (17 sources) Pain in elbow; 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: [Pain in left elbow] 10-16-2022 Episodic Tiffany-; endo-; and myocarditis; cardiomyopathy (except that caused by tuberculosis or sexually transmitted disease) (3 sources) Cardiomyopathy; 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: [Cardiomyopathy, unspecified] Onset: 4 06-18-2024 Chronic Poisoning by nonmedicinal substances (16 sources) Bee sting; 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: [Toxic effect of venom of bees, accidental (unintentional), initial encounter] 03-24-2023 Episodic Pulmonary heart disease (20 sources) Pulmonary hypertension; 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: [Pulmonary hypertension, unspecified] Onset: 5 09-14-2024 Chronic Rehabilitation care; fitting of prostheses; and adjustment of devices (1 source) Encounter for fitting and adjustment of other specified devices; 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: [Encounter for fitting and adjustment of other specified devices] Onset: 4 Chronic Residual codes; unclassified (20 sources) Obstructive sleep apnea syndrome; 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: [Obstructive sleep apnea (adult) (pediatric)] Onset: 4 03-27-2022 Chronic Comment on above: Noncompliant Residual codes; unclassified (20 sources) Obstructive sleep apnea (adult) (pediatric); 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: [Obstructive sleep apnea (adult)(pediatric)] Onset: 5 Chronic Residual codes; unclassified (20 sources) Edema; 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: [Edema, unspecified] 03-12-2021 Episodic Residual codes; unclassified (20 sources) Acute confusion; 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: [Disorientation, unspecified] 02-10-2021 Episodic Residual codes; unclassified (20 sources) Altered mental status; 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: [Altered mental status, unspecified] 02-15-2022 Episodic Residual codes; unclassified (20 sources) Edema of left lower limb; 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: [Localized edema] 04-25-2022 Episodic Residual codes; unclassified (20 sources) History of lumbar laminectomy; 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: [Other specified postprocedural states] 05-28-2022 Episodic Residual codes; unclassified (5 sources) Localized edema; 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: [Edema] Onset: Episodic Residual codes; unclassified (4 sources) Activity of daily living (ADL) alteration; 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: [Other specified health status] 10-29-2024 Episodic Residual codes; unclassified (7 sources) History of hernia repair; 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: [Other specified postprocedural states] 10-29-2024 Episodic Comment on above: [facility] Residual codes; unclassified (2 sources) Edema of lower extremity; 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: [Localized edema] 11-09-2024 Episodic Residual codes; unclassified (1 source) Other specified health status; 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: [Decreased activities of daily living (ADL)] Onset: Episodic Skin and subcutaneous tissue infections (3 sources) Bacterial infection of skin; 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: [Local infection of the skin and subcutaneous tissue, unspecified] 06-05-2024 Episodic Spondylosis; intervertebral disc disorders; other back problems (2 sources) Degeneration of lumbar intervertebral disc; 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: [Degeneration of intervertebral disc of lumbar region, unspecified whether pain present] 11-03-2024 Chronic Spondylosis; intervertebral disc disorders; other back problems (1 source) Cervical radiculopathy; 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: [Radiculopathy, cervical region] 09-10-2024 Episodic Superficial injury; contusion (20 sources) Contusion of chest; 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: [Contusion of unspecified front wall of thorax, initial encounter] 03-23-2022 Episodic Thyroid disorders (20 sources) Hypothyroidism; 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: [Hypothyroidism, unspecified] Onset: 4 Chronic Transient cerebral ischemia (20 sources) Transient cerebral ischemia; 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, unspecified] Chronic Unclassified (20 sources) 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 Unclassified (1 source) Occupational Therapy Onset: 5 Unclassified (1 source) 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, psychotic disturbance, mood disturbance, or anxiety (HCC); 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: [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, psychotic disturbance, mood disturbance, or anxiety (HCC)] Onset: 5 Unclassified (1 source) Degeneration of intervertebral disc of lumbar region, unspecified whether pain present; 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: [Degeneration of intervertebral disc of lumbar region, unspecified whether pain present] Onset: 5 Urinary tract infections (20 sources) Urinary tract infectious disease; 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: [Urinary tract infection, site not specified] Episodic Varicose veins of lower extremity (20 sources) Varicose veins of lower limb co-occurrent with edema; 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: [Varicose veins of bilateral lower extremities with other complications] Episodic Viral infection (20 sources) Disease caused by 2019-nCoV; 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: [COVID-19] Episodic Past or Other Problems Problem Classification Problem Date Documented Da te Episodic/Chronic Abdominal hernia (20 sources) Hiatal hernia; 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: [Diaphragmatic hernia without obstruction or gangrene] Onset: 09-20-2024 Episodic Comment on above: Moderate to large Cancer of breast (20 sources) History of malignant neoplasm of breast; 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: [Personal history of malignant neoplasm of breast] Onset: 06-10-2008 07-19-2024 Episodic Conditions associated with dizziness or vertigo (20 sources) Lightheadedness; 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: [Dizziness and giddiness] Onset: 05-04-2024 Episodic Coronary atherosclerosis and other heart disease (20 sources) Stented coronary artery; 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: [Presence of coronary angioplasty implant and graft] Onset: 07-20-2024 Episodic Comment on above: 2 STENTS/ Deficiency and other anemia (20 sources) Iron deficiency anemia; 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: [Iron deficiency anemia, unspecified] Onset: 07-19-2024 03-12-2021 Episodic Deficiency and other anemia (1 source) Iron deficiency anemia, unspecified; 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: [Iron deficiency anemia, unspecified iron deficiency anemia type] Onset: 07-19-2024 Episodic Fluid and electrolyte disorders (20 sources) Dehydration; 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: [Dehydration] Onset: 02-20-2019 02-23-2022 Episodic Malaise and fatigue (20 sources) Physical deconditioning; 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: [Other malaise] Onset: 04-13-2021 Episodic Meningitis (except that caused by tuberculosis or sexually transmitted disease) (1 source) Zoster meningitis; 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] Onset: 06-16-2024 Episodic Nutritional deficiencies (20 sources) Cobalamin deficiency; 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: [Deficiency of other specified B group vitamins] Onset: 04-09-2024 10-21-2022 Episodic Other acquired deformities (9 sources) Acquired deformity of chest and rib; 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: [Acquired deformity of chest and rib] Onset: 02-18-2024 02-12-2023 Episodic Other circulatory disease (1 source) Personal history of transient ischemic attack (TIA), and cerebral 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; 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: [History of transient ischemic attack (TIA)] Onset: 09-14-2024 Episodic Other connective tissue disease (20 sources) Recurrent falls ; 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: [Repeated falls] Onset: 12-06-2020 Episodic Other connective tissue disease (8 sources) Repeated falls; 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: [History of fall] Onset: 10-21-2024 Episodic Other gastrointestinal disorders (3 sources) Dysphagia, unspecified; 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: [Dysphagia, unspecified] Onset: 10-21-2024 08-13-2023 Episodic Other gastrointestinal disorders (2 sources) Personal history of other diseases of the digestive system; 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: [S/P repair of paraesophageal hernia] Onset: 10-21-2024 Episodic Other injuries and conditions due to external causes (1 source) Unspecified injury of head, initial encounter; 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: [Unspecified injury of head, initial encounter] Onset: 07-01-2024 Episodic Other injuries and conditions due to external causes (1 source) Other injury of unspecified body region, initial encounter; 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: [Other injury of unspecified body region, initial encounter] Onset: 03-16-2024 Episodic Other lower respiratory disease (7 sources) Shortness of breath; 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: [Shortness of breath] Onset: 07-20-2024 Episodic Other lower respiratory disease (1 source) Pleurodynia; 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: [Pleurodynia] Onset: 10-08-2024 Episodic Other lower respiratory disease (1 source) Other abnormalities of breathing; 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: [Other abnormalities of breathing] Onset: 02-18-2024 Episodic Other nervous system disorders (20 sources) H/O: epilepsy; 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: [Personal history of other diseases of the nervous system and sense organs] Onset: 12-06-2020 Episodic Other nervous system disorders (20 sources) Abnormal gait; 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: [Unsteadiness on feet] Onset: 12-06-2020 Episodic Other nervous system disorders (1 source) Unspecified abnormalities of gait and mobility; 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: [Abnormality of gait] Onset: 04-13-2021 Episodic Other nervous system disorders (1 source) Personal history of other diseases of the nervous system and sense organs; 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] Onset: 12-06-2020 Episodic Other nervous system disorders (1 source) Other abnormalities of gait and mobility; 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: [Other abnormalities of gait and mobility] Onset: 05-04-2024 Episodic Other non-traumatic joint disorders (20 sources) Pain in left knee; 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: [Left knee pain] Onset: 07-19-2024 01-02-2023 Episodic Other non-traumatic joint disorders (1 source) Pain in right knee; 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: [Pain in right knee] Onset: 06-16-2024 Episodic Other screening for suspected conditions (not mental disorders or infectious disease) (8 sources) Liver function tests abnormal; 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: [Abnormal results of liver function studies] Onset: 04-12-2024 09-03-2024 Episodic Pancreatic disorders (not diabetes) (3 sources) Pancreatic duct disorder; 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: [Other specified diseases of pancreas] Onset: 09-13-2024 09-08-2024 Episodic Phlebitis; thrombophlebitis and thromboembolism (20 sources) H/O: Deep vein thrombosis; 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: [Personal history of other venous thrombosis and embolism] Onset: 06-05-2013 07-19-2024 Episodic Pulmonary heart disease (20 sources) Pulmonary embolism; 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: [Other pulmonary embolism without acute cor pulmonale] Onset: 07-19-2024 Episodic Residual codes; unclassified (20 sources) Bilateral lower limb edema; 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: [Localized edema] Onset: 02-20-2019 07-19-2024 Episodic Residual codes; unclassified (2 sources) Acquired absence of other specified parts of digestive tract; 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: [Status post cholecystectomy] Onset: 10-21-2024 Episodic Residual codes; unclassified (2 sources) Other specified postprocedural states; 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: [S/P repair of paraesophageal hernia] Onset: 10-21-2024 Episodic Sprains and strains (4 sources) Lower back injury; 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: [Strain of muscle, fascia and tendon of lower back, initial encounter] Onset: 04-07-2024 06-15-2024 Episodic Unclassified (20 sources) Parkinsonism; 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: [Parkinsonism, unspecified Parkinsonism type (HCC)] Onset: 07-20-2024 Resolved: 07-20-2024 07-20-2024 Chronic Unclassified (20 sources) Partial complex seizures 03-18-2022 Unclassified (20 sources) h/o back surgery 03-18-2022 Comment on above: LUMBAR FUSION Results Test Name Value Interpretation Reference Range Facility Inital Evaluation (1) - PTon 01-12-2025 Inital Evaluation (1) - PT [facility] [place] [address] / REHABILITATION SERVICES INITIAL EVALUATION MR#: [id number] Acct: [id number] Name: LAUREN ALCARAZ Rep #: [id number] : 1940 84 From: Gunnar Graves PT, ATC Referring Dr.: Dr. Chema Perry MD Status: R EG RCR Insurance: MEDICARE PART A B [facility] [place] [id number] Patient's Visit Information Visit Information Visit Information: LAUREN ALCARAZ is a 84 year old F referred to Physical Therapy by Dr. hCema Perry MD with a diagnosis of Unsteady gait. Date of Evaluation: 01/12/25 Physical Therapist: Gunnar Graves PT, ATC Visit Plan Frequency: 2-3x /Week Duration: 4-6 Weeks Plan: B LE strengthening, core strengthening, stair negotiation, gait training with LRD, balance and proprio, nustep, and HEP Subjective Subjective: Pt reports she has had a lot of surgeries since September of this year. Pt notes she has become very debilitated and weak over that time span. Pt reports this has resulted in falls over this time span. Pt reports none recently. Pt reports she has been walking with a rollator over this span secondary to not feeling safe with her ambulation. Pt lives in a one story setting with her . Pt notes she is really hear today to help with her mobility and her function. Pt reports she has had PT at [facility] and with home health at home which had really made a difference, but she has debilitated over the past few weeks secondary to inactivity. Pt notes she does have peripheral neuropathy in B LE's. Pt reports she is not in any pain at this time. Objective Objective: Neuro: R LE is hyposensitive to light touch. L LE sensation is WNL to light touch. sit to stands: 5 reps in 30 sec TU sec MMT: R LE is grossly 4-/5 throughout. L LE is 5/5 throughout ROM: B LE's are WNL when compared bilaterally Gait: Pt is able to ambulate with the use of a rollator over 1000 feet with [id number] Balance/Special Test Scores Lower Extremity Functional Score: 13 Goals Goal 1:: Pt will perform 10 sit to stands in 30 seconds to aid with transfer efficiency Goal Time Frame: 4-6 Weeks Goal 2:: Pt will perform the TUG test in under 30 seconds to aid with gait efficiency Goal Time Frame: 4-6 Weeks Goal 3:: Pt will be able to ambulate greater than 340 feet with LRD to aid with community mobility Goal Time Frame: 4-6 Weeks Goal 4:: I with HEP Goal Time Frame: 4-6 Weeks Rehabilitation Potential Physical Therapy Diagnosis: Pt has LE weakness, unsteady gait, and difficulty with transfers secondary to debilitation Rehabilitation Potential: Good Anticipated Interventions Patient/Client Instruction: Educate patient on: Condition and Plan of Care For the Purpose of:: To improve muscle performance and motor function, To improve ability to perform ADL's and To increase tolerance to activity/condition/position Therapeutic Exercise to Include: Strength training, Endurance training, Balance training, Gait and locomotor training, Dynamic Lumbar Stabilization and Scapular Strength/Stabilization For the Purpose of:: To improve muscle performance and motor function, To improve ability to perform ADL's, To increase tolerance to activity/condition/position and To improve performance and independence with ADL's Text: Thank you for the opportunity to evaluate your patient. For Medicare and Medicare HMO plans, please review the plan of care and approve it. It will need to be FAXED BACK to us at [phone] for Medicare purposes. For Medicare only, by signing this I certify the plan of care. Please let me know if there are questions or concerns regarding this plan of care. Physician Signature: Date: 01/12/25 1506 CC: Dr. Chema Perry MD [facility] Signed Normal [facility] Inital Evaluation (1) - PT [facility] Physical Therapy [facility] [address] [place] [address] [address] [place], [place] [address] / REHABILITATION SERVICES INITIAL EVALUATION MR#: [id number] Acct: [id number] Name: LAUREN ALCARAZ Rep #: [id number] : 1940 84 From: Gunnar Graves PT, ATC Referring Dr.: Dr. Chema Perry MD Status: R EG RCR Insurance: MEDICARE PART A B [employer] [id number] Patient's Visit Information Visit Information Visit Information: LAUREN ALCARAZ is a 84 year old F referred to Physical Therapy by Dr. Chema Perry MD with a diagnosis of Unsteady gait. Date of Evaluation: 01/12/25 Physical Therapist: Gunnar Graves, PT, ATC Visit Plan Frequency: 2-3x /Week Duration: 4-6 Weeks Plan: B LE strengthening, core strengthening, stair negotiation, gait training with LRD, balance and proprio, nustep, and HEP Subjective Subjective: Pt reports she has had a lot of surgeries since September of this year. Pt notes she has become very debilitated and weak over that time span. Pt reports this has resulted in falls over this time span. Pt reports none recently. Pt reports she has been walking with a rollator over this span secondary to not feeling safe with her ambulation. Pt lives in a one story setting with her . Pt notes she is really hear today to help with her mobility and her function. Pt reports she has had PT at [facility] and with home health at home which had really made a difference, but she has debilitated over the past few weeks secondary to inactivity. Pt notes she does have peripheral neuropathy in B LE's. Pt reports she is not in any pain at this time. Objective Objective: Neuro: R LE is hyposensitive to light touch. L LE sensation is WNL to light touch. sit to stands: 5 reps in 30 sec TU sec MMT: R LE is grossly 4-/5 throughout. L LE is 5/5 throughout ROM: B LE's are WNL when compared bilaterally Gait: Pt is able to ambulate with the use of a rollator over 1000 feet with CGAx1 Balance/Special Test Scores Lower Extremity Functional Score: 13 Goals Goal 1:: Pt will perform 10 sit to stands in 30 seconds to aid with transfer efficiency Goal Time Frame: 4-6 Weeks Goal 2:: Pt will perform the TUG test in under 30 seconds to aid with gait efficiency Goal Time Frame: 4-6 Weeks Goal 3:: Pt will be able to ambulate greater than 340 feet with LRD to aid with community mobility Goal Time Frame: 4-6 Weeks Goal 4:: I with HEP Goal Time Frame: 4-6 Weeks Rehabilitation Potential Physical Therapy Diagnosis: Pt has LE weakness, unsteady gait, and difficulty with transfers secondary to debilitation Rehabilitation Potential: Good Anticipated Interventions Patient/Client Instruction: Educate patient on: Condition and Plan of Care For the Purpose of:: To improve muscle performance and motor function, To improve ability to perform ADL's and To increase tolerance to activity/condition/position Therapeutic Exercise to Include: Strength training, Endurance training, Balance training, Gait and locomotor training, Dynamic Lumbar Stabilization and Scapular Strength/Stabilization For the Purpose of:: To improve muscle performance and motor function, To improve ability to perform ADL's, To increase tolerance to activity/condition/position and To improve performance and independence with ADL's Text: Thank you for the opportunity to evaluate your patient. For Medicare and Medicare HMO plans, please review the plan of care and approve it. It will need to be FAXED BACK to us at [phone] for Medicare purposes. For Medicare only, by signing this I certify the plan of care. Please let me know if there are questions or concerns regarding this plan of care. Physician Signature: Date: 01/12/25 1505 CC: Dr. Chema Perry MD [facility] Signed Normal [facility] CNOVon 12-23-2024 CNOV Normal [facility] CNOVon 12-20-2024 CNOV Normal [facility] CNOVon 12-19-2024 CNOV Normal [facility] CNOVon 12-09-2024 CNOV Normal [facility] CNOVon 12-03-2024 CNOV Normal [facility] CNTHERAPYon 11-26-2024 CNTHERAPY OT/PT/Speech Visit ( [facility]) LAUREN ALCARAZ ([id number]) 1940 F Date Time Provider Department 11/26/24 4:[address] [facility] Date Time Provider Department Center 11/26/2024 4:15 PM [id number], DIANDRA [facility] Med Reason for Visit: OT Discharge [750] Primary Visit Diagnosis: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, R29.898] Other Visit Diagnoses:Weakness [R53.1] Lack of coordination [R27.9] Decreased activities of daily living (ADL) [Z78.9] Allergies As of Date: 11/26/2024 Noted Allergy Reaction PROPOXYPHENE N-ACETAMINOPHEN 02/08/2006 14 - Other: See Comments Comments: hallucinations ADHESIVE TAPE-SILICONES 02/23/2015 16 - Unknown Comments: Other reaction(s): Other (comments) Not sure which type of tape but red skin. DOXYCYCLINE 08/09/2020 11 - Vomiting LAMICTAL (LAMOTRIGINE) 08/09/2020 7 - Swelling Comments: Lips swelling LATEX 02/14/2021 2 - Rash MOXIFLOXACIN 08/09/2020 1 - Mental Status Change PERCOCET (OXYCODONE-ACETAMINOPHEN) 1 - Mental Status Change PROPOXYPHENE 11/07/2008 1 - Mental Status Change 14 - Other: See Comments Comments: Hallucinations Includes Darvocet ZOLPIDEM 08/09/2020 1 - Mental Status Change ADHESIVE 02/23/2015 14 - Other: See Comments Comments: Not sure which type of tape but red skin. DICLOFENAC SODIUM 07/17/2015 14 - Other: See Comments Comments: Topical gel resulted in hand swelling. OXYCODONE 06/28/2020 1 - Mental Status Change Date Reviewed: 11/16/2024 Reviewed by: Manan Bull, MAN - Fully Assessed Prescriptions as of 11/26/2024 - dorzolamide-timolol (COSOPT) 22.3-6.8 mg/mL ophthalmic solution Use 1 Drop in both eyes two times a day. - traMADol 25 mg tablet Take 25 mg by mouth every 6 hours as needed. - pantoprazole DR (PROTONIX) 40 mg tablet Take 1 tablet by mouth once daily. - OXYGEN, HOME THERAPY, Inhale 2 L/min as instructed as directed. With naps and at bedtime - casanthranol/docusate sodium (DOCUSATE SODIUM WITH LAXATIVE ORAL) Take 1 tablet by mouth every other day. - furosemide (LASIX) 20 mg tablet Take 0.5 tablets by mouth every afternoon. As needed - potassium chloride ER (KLOR-CON) 20 mEq tablet Take 1 tablet by mouth once daily. - latanoprost (XALATAN) 0.005 % ophthalmic solution Use 1 Drop in both eyes daily at bedtime. - d-mannose 500 mg capsule Take 500 mg by mouth once daily. - donepezil (ARICEPT) 10 mg tablet Take 1 tablet by mouth daily with breakfast. - gabapentin (NEURONTIN) 100 mg capsule Take 100 mg by mouth once daily as needed. - famotidine (PEPCID) 10 mg tablet Take 10 mg by mouth twice daily. - DODEX 1,000 mcg/mL Inject 1,000 mcg intramuscularly once every month. Vitamin [id number] - ammonium lactate (LAC-HYDRIN) 12 % lotion - MULTIVITAMIN ORAL Take 1 tablet by mouth once daily. - albuterol (PROVENTIL) 2.5 mg /3 mL (0.083 %) nebulizer solution Use 2.5 mg via nebulizer as needed. - Lactobacillus acidophilus (PROBIOTIC) 10 billion cell cap Take 1 capsule by mouth once daily. - pramipexole (MIRAPEX) 0.5 mg tablet Take 0.5 mg by mouth two times a day. - vortioxetine (TRINTELLIX) 20 mg tablet Take 20 mg by mouth once daily. - atorvastatin (LIPITOR) 40 mg tablet Take 40 mg by mouth once daily. - ELIQUIS 5 mg tab(s) Take 5 mg by mouth two times a day. BID - levothyroxine (SYNTHROID) 50 mcg tablet Take 50 mcg by mouth once daily. - memantine (NAMENDA) 10 mg tablet Take 10 mg by mouth two times a day. - MYRBETRIQ 50 mg Tb24 Take 50 mg by mouth once daily. - lacosamide (VIMPAT) 100 mg tab Take [...] every 6 months. Last injection November 2020 [facility] CNTHERAPYon 11-19-2024 CNTHERAPY OT/PT/Speech Visit ( [facility] LAUREN ALCARAZ ([id number]) 1940 F Date Time Provider Department 11/19/24 4:[address] [facility] Date Time Provider Department Center 11/19/2024 4:15 PM [id number], DIANDRA [facility] Reason for Visit: Occupational Therapy [504] Primary Visit Diagnosis: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, R29.898] Other Visit Diagnoses:Weakness [R53.1] Lack of coordination [R27.9] Allergies As of Date: 11/19/2024 Noted Allergy Reaction PROPOXYPHENE N-ACETAMINOPHEN 02/08/2006 14 - Other: See Comments Comments: hallucinations ADHESIVE TAPE-SILICONES 02/23/2015 16 - Unknown Comments: Other reaction(s): Other (comments) Not sure which type of tape but red skin. DOXYCYCLINE 08/09/2020 11 - Vomiting LAMICTAL (LAMOTRIGINE) 08/09/2020 7 - Swelling Comments: Lips swelling LATEX 02/14/2021 2 - Rash MOXIFLOXACIN 08/09/2020 1 - Mental Status Change PERCOCET (OXYCODONE-ACETAMINOPHEN) 1 - Mental Status Change PROPOXYPHENE 11/07/2008 1 - Mental Status Change 14 - Other: See Comments Comments: Hallucinations Includes Darvocet ZOLPIDEM 08/09/2020 1 - Mental Status Change ADHESIVE 02/23/2015 14 - Other: See Comments Comments: Not sure which type of tape but red skin. DICLOFENAC SODIUM 07/17/2015 14 - Other: See Comments Comments: Topical gel resulted in hand swelling. OXYCODONE 06/28/2020 1 - Mental Status Change Date Reviewed: 11/16/2024 Reviewed by: Manan Bull, RN - Fully Assessed Prescriptions as of 11/20/2024 - gentamicin 0.1% miconazole 2% triamcinolone 0.1% 1:1:1 topical cream (CPD) Apply to affected area two times a day for 14 days. - dorzolamide-timolol (COSOPT) 22.3-6.8 mg/mL ophthalmic solution Use 1 Drop in both eyes two times a day. - traMADol 25 mg tablet Take 25 mg by mouth every 6 hours as needed. - pantoprazole DR (PROTONIX) 40 mg tablet Take 1 tablet by mouth once daily. - OXYGEN, HOME THERAPY, Inhale 2 L/min as instructed as directed. With naps and at bedtime - casanthranol/docusate sodium (DOCUSATE SODIUM WITH LAXATIVE ORAL) Take 1 tablet by mouth every other day. - furosemide (LASIX) 20 mg tablet Take 0.5 tablets by mouth every afternoon. As needed - potassium chloride ER (KLOR-CON) 20 mEq tablet Take 1 tablet by mouth once daily. - latanoprost (XALATAN) 0.005 % ophthalmic solution Use 1 Drop in both eyes daily at bedtime. - d-mannose 500 mg capsule Take 500 mg by mouth once daily. - donepezil (ARICEPT) 10 mg tablet Take 1 tablet by mouth daily with breakfast. - gabapentin (NEURONTIN) 100 mg capsule Take 100 mg by mouth once daily as needed. - famotidine (PEPCID) 10 mg tablet Take 10 mg by mouth twice daily. - DODEX 1,000 mcg/mL Inject 1,000 mcg intramuscularly once every month. Vitamin G-00-tgrkwcmhsidcls - ammonium lactate (LAC-HYDRIN) 12 % lotion - MULTIVITAMIN ORAL Take 1 tablet by mouth once daily. - albuterol (PROVENTIL) 2.5 mg /3 mL (0.083 %) nebulizer solution Use 2.5 mg via nebulizer as needed. - Lactobacillus acidophilus (PROBIOTIC) 10 billion cell cap Take 1 capsule by mouth once daily. - pramipexole (MIRAPEX) 0.5 mg tablet Take 0.5 mg by mouth two times a day. - vortioxetine (TRINTELLIX) 20 mg tablet Take 20 mg by mouth once daily. - atorvastatin (LIPITOR) 40 mg tablet Take 40 mg by mouth once daily. - ELIQUIS 5 mg tab(s) Take 5 mg by mouth two times a day. BID - levothyroxine (SYNTHROID) 50 mcg tablet Take 50 mcg by mouth once daily. - memantine (NAMENDA) 10 mg tablet Take 10 mg by mouth two times a day. - MYRBETRIQ 50 mg Tb24 Take 50 mg by mouth once daily. - lacosamide (VIMPAT) 100 mg tab Take [...] every 6 months. Last injection November 2020 Normal [facility] CASE MANAGEMon 11-17-2024 CASE MANAGEM Normal [facility] CASE MANAGEM Normal [facility] CNDSon 11-17-2024 CNDS Normal [facility] ANES POSTPROC EVALon 025 ANES POSTPROC EVAL Normal [facility] ANES PRE-OPon 11-16-2024 ANES PRE-OP Normal [facility] CASE MGT INIT ASSESon 2024 CASE MGT INIT ASSES Normal [facility] CBC panel Auto (Bld)on 11-16 Erythrocyte distribution width (RBC) [Ratio] 13.7 % Normal 11.5-15.0 [facility] Comment on above: Order Comment: Speci men Type: BLOOD SPECIMENOrdering Facility: [facility] Address: [address] [place] [address] Performed By: #### 5 8410-2 ####[facility] [id number] [place] [address] [place] Hematocrit (Bld) [Volume fraction] 36.3 % Normal 36.0-46.0 [facility] Comment on above: Order Comment: Speci men Type: BLOOD SPECIMENOrdering Facility: [facility] Address: [address] [place] [address] Performed By: #### 5 8410-2 ####[facility] [id number] [place] [address] [place] Hemoglobin (Bld) [Mass/Vol] 11.6 g/dL Normal 11.5-15.5 [facility] Comment on above: Order Comment: Speci men Type: BLOOD SPECIMENOrdering Facility: [facility] Address: [address] [place] [address] Performed By: #### 5 8410-2 ####[facility] [id number] [place] [address] [place] [facility] MCH (RBC) [Entitic mass] 29.5 pg Normal 26.0-34.0 [facility] Comment on above: Order Comment: Speci men Type: BLOOD SPECIMENOrdering Facility: [facility] Address: [address] [place] [address] Performed By: #### 5 8410-2 ####[facility] [id number] [place] [address] [place] MCHC (RBC) [Mass/Vol] 32.0 g/dL Normal 30.5-36.0 [facility] Comment on above: Order Comment: Speci men Type: BLOOD SPECIMENOrdering Facility: [facility] Address: [address] [place] [address] Performed By: #### 5 8410-2 ####[facility] [id number] [place] [address] [place] MCV (RBC) [Entitic vol] 92.4 fL Normal 80.0-100.0 [facility] Comment on above: Order Comment: Speci men Type: BLOOD SPECIMENOrdering Facility: [facility] Address: [address] [place] [address] Performed By: #### 5 8410-2 ####[facility] [id number] [place] [address] [place] Nucleated RBC (Bld) [#/Vol] 10*3/uL Normal <0.01 [facility] Comment on above: Order Comment: Speci men Type: BLOOD SPECIMENOrdering Facility: [facility] Address: [address] [place] [address] Performed By: #### 5 8410-2 ####[facility] [id number] [place] [address] [place] Platelet mean volume (Bld) [Entitic vol] 10.9 fL Normal 9.0-12.7 [facility] Comment on above: Order Comment: Speci men Type: BLOOD SPECIMENOrdering Facility: [facility] Address: [address] [place] [address] Performed By: #### 5 8410-2 ####[facility] [id number] [place] [address] [place] Platelets (Bld) [#/Vol] 171 10*3/uL Normal 150-400 [facility] Comment on above: Order Comment: Speci men Type: BLOOD SPECIMENOrdering Facility: [facility] Address: [address] [place] [address] Performed By: #### 5 8410-2 ####[facility] LABCLIA [id number] [place] [address] [place] RBC (Bld) [#/Vol] 3.93 10*6/uL Normal 3.90-5.20 [facility] Comment on above: Order Comment: Speci men Type: BLOOD SPECIMENOrdering Facility: [facility] Address: [address] [place] [address] Performed By: #### 5 8410-2 ####[facility] [id number] [place] [id number] [place] WBC (Bld) [#/Vol] 4.86 10*3/uL Normal 3.70-11.00 [facility] Comment on above: Order Comment: Speci men Type: BLOOD SPECIMENOrdering Facility: [facility] Address: [address] [place] [address] Performed By: #### 5 8410-2 ####[facility] LABCLIA [id number] [address] [address] [place] Comprehensive metabolic 2000 panelon 11-16-2024 Albumin [Mass/Vol] 3.4 g/dL Low 3.9-4.9 [facility] Comment on above: Order Comment: Speci men Type: BLOOD SPECIMENOrdering Facility: [facility] Address: [address] [place] [address] Performed By: #### 2 4323-8, 2776-08, ####[facility] LABCLIA [id number] [place] [id number] [place] ALP [Catalytic activity/Vol] 148 U/L High 34-123 [facility] Comment on above: Order Comment: Speci men Type: BLOOD SPECIMENOrdering Facility: [facility] Address: [address] [place] [address] Performed By: #### 2 4323-8, 2776-08, ####[facility] LABCL[facility] [id number] [place] [address] [place] ALT [Catalytic activity/Vol] 27 U/L Normal 7-38 [facility] Comment on above: Order Comment: Speci men Type: BLOOD SPECIMENOrdering Facility: [facility] Address: [address] [place] [address] Performed By: #### 2 4323-8, 2776-08, ####[facility] LABCLIA [id number] [place] [id number] [place] Anion gap [Moles/Vol] 10 mmol/L Normal 8-15 [facility] Comment on above: Order Comment: Speci men Type: BLOOD SPECIMENOrdering Facility: [facility] Address: [address] [place] [address] Performed By: #### 2 4323-8, 2776-08, ####[facility] LABCLIA [id number] [address] [address] [place] AST [Catalytic activity/Vol] 25 U/L Normal 13-35 [facility] Comment on above: Order Comment: Speci men Type: BLOOD SPECIMENOrdering Facility: [facility] Address: [address] [place] [address] Performed By: #### 2 4323-8, 2776-08, ####[facility]CL[facility] [id number] [address] [address] [place] Bilirubin [Mass/Vol] 0.4 mg/dL Normal 0.2-1.3 [facility] Comment on above: Order Comment: Speci men Type: BLOOD SPECIMENOrdering Facility: [facility] Address: [address] [place], [place] [address] Performed By: #### 2 4323-8, 2776-08, ####[facility]CL[facility] [id number] [address] [address] [place] Calcium [Mass/Vol] 8.0 mg/dL Low 8.5-10.2 [facility] Comment on above: Order Comment: Speci men Type: BLOOD SPECIMENOrdering Facility: [facility] Address: [address] [place], [place] [address] Performed By: #### 2 4323-8, 2776-08, ####[facility]CL[facility] [id number] [address] [address] [place] Chloride [Moles/Vol] 105 mmol/L Normal 98-107 [facility] Comment on above: Order Comment: Speci men Type: BLOOD SPECIMENOrdering Facility: [facility] Address: [address] [place] [address] Performed By: #### 2 4323-8, 2776-08, ####[facility]CL[facility] [id number] [address] [address] [place] CO2 [Moles/Vol] 21 mmol/L Low 22-30 [facility] Comment on above: Order Comment: Speci men Type: BLOOD SPECIMENOrdering Facility: [facility] Address: [address] [place] [address] Performed By: #### 2 4323-8, 2777, ####[facility] [id number] [address] [address] [place] Creatinine [Mass/Vol] 0.75 mg/dL Normal 0.58-0.96 [facility] Comment on above: Order Comment: Spechakeem men Type: BLOOD SPECIMENOrdering Facility: [facility] Address: [address] [place] [address] Performed By: #### 2 4323-8, 27702-15, ####[facility] [id number] [place] [address] [place] Creatinine and Glomerular filtration rate.predicted panel (S/P/Bld) 80 mL/min/1.73m??? Normal >=60 [facility] Comment on above: Order Comment: Ramirez gamez Type: BLOOD SPECIMENOrdering Facility: [facility] Address: [address] [place] [address] Result Comment: Brandy mated Glomerular Filtration Rate (eGFR) is calculated using the 2020 CKD-EPI creatinine equation. This equation utilizes serum creatinine, sex, and age as parameters. The creatinine assay has traceable calibration to isotope dilution-mass spectrometry. Refer to KDIGO guidelines for clinical interpretation. In patients with unstable renal function, e.g. those with acute kidney injury, the eGFR may not accurately reflect actual GFR. Performed By: #### 2 4323-8, 2776-08, ####[facility] [id number] [address] [address] [place] Glucose [Mass/Vol] 156 mg/dL High 74-99 [facility] Comment on above: Order Comment: Ramirez gamez Type: BLOOD SPECIMENOrdering Facility: [facility] Address: [address] [place] [address] Result Comment: The [place] Diabetes Association (ADA) provides guidance for cutoff values for fasting glucose and random glucose. The ADA defines fasting as no caloric intake for at least 8 hours. Fasting plasma glucose results between 100 to 125 mg/dL indicate increased risk for diabetes (prediabetes).Fasting plasma glucose results greater than or equal to 126 mg/dL meet the criteria for diagnosis of diabetes. In the absence of unequivocal hyperglycemia, results should be confirmed by repeat testing. In a patient with classic symptoms of hyperglycemia or hyperglycemic crisis, random plasma glucose results greater than or equal to 200 mg/dL meet the criteria for diagnosis of diabetes.Reference: Standards of Medical Care in Diabetes 2016, [place] [employer]. Diabetes Care. 2016.39(Suppl 1). Performed By: #### 2 4323-8, 2776-08, ####[facility] [id number] [place] [address] [place] Potassium [Moles/Vol] 4.8 mmol/L Normal 3.7-5.1 [facility] Comment on above: Order Comment: Speci men Type: BLOOD SPECIMENOrdering Facility: [facility] Address: [address] [place] [address] Performed By: #### 2 4323-8, 2776-08, ####[facility] [id number] [place] [address] [place] Protein [Mass/Vol] 6.0 g/dL Low 6.3-8.0 [facility] Comment on above: Order Comment: Speci men Type: BLOOD SPECIMENOrdering Facility: [facility] Address: [address] [place] [address] Performed By: #### 2 4323-8, 2776-08, ####[facility] [id number] [place] [id number] [place] Sodium [Moles/Vol] 136 mmol/L Normal 136-144 [facility] Comment on above: Order Comment: Speci men Type: BLOOD SPECIMENOrdering Facility: [facility] Address: [address] [place] [address] Performed By: #### 2 4323-8, 2776-08, ####[facility]CL[facility] [id number] [address] [address] [place] Urea nitrogen [Mass/Vol] 13 mg/dL Normal 7-21 [facility] Comment on above: Order Comment: Speci men Type: BLOOD SPECIMENOrdering Facility: [facility] Address: [address] [place] [address] Performed By: #### 2 4323-8, 2777-1, ####[facility]CL[facility] [id number] [address] [address] [place] ERCPon 11-16-2024 ERCP Normal [facility] Magnesium SerPl-mCncon 11-16 Magnesium [Mass/Vol] 1.8 mg/dL Normal 1.7-2.3 [facility] Comment on above: Order Comment: Speci men Type: BLOOD SPECIMENOrdering Facility: [facility] Address: [address] [place] [address] Performed By: #### 2 4323-8, 2777-, ####[facility] [id number] [address] [address] [place] NURSING PROGon 11-16-2024 NURSING PROG Normal [facility] NURSING PROG Normal [facility] NUTRITIONon 11-16-2024 NUTRITION Normal [facility] PT panel Coag (PPP)on 2024 INR Coag (PPP) [Relative time] 1.2 {INR} Normal 0.9-1.3 [facility] Comment on above: Order Comment: Speci men Type: BLOOD SPECIMENOrdering Facility: [facility] Address: [address] [place] [address] Result Comment: Brook min K Antagonist (VKA) Therapeutic Range: INR 2 to 3 (Target INR of 2.5)Note: For patients treated with VKA drugs, such as warfarin, the [place] [employer] 2012 Guideline recommends a therapeutic INR range of 2 to 3 (target INR of 2.5). This recommendation includes high-risk patients with antiphospholipid syndrome with previous arterial or venous thromboembolism, current-generation mechanical or bioprosthetic aortic heart valve replacement.Note: Patients with mechanical aortic valve replacement and additional risk factors for thromboembolic events (atrial fibrillation, previous thromboembolism, LV dysfunction, hypercoagulable conditions) or an older generation mechanical AVR (i.e., ball in-Cage) or any mechanical MVR should have a INR therapeutic range of 2.5 to 3.5 (target INR of 3).Tanja GH, et al. Chest 2012, 141:7S-47SNishimura RA, et al. [facility] 2017, 70: 252-289 Performed By: #### 3 4528-0, 24546-8 ####[facility] LABIA [id number] [place] [address] [place] PT Coag (PPP) [Time] 13.3 s High 9.7-13.0 [facility] Comment on above: Order Comment: Ramirez gamez Type: BLOOD SPECIMENOrdering Facility: [facility] Address: [address] [place] [address] Performed By: #### 3 4528-0, 28403-9 ####[facility] LABIA [id number] [place] [address] [place] Phosphate SerPl-mCncon 11-16 Phosphate [Mass/Vol] 2.5 mg/dL Low 2.7-4.8 [facility] Comment on above: Order Comment: Ramirez gamez Type: BLOOD SPECIMENOrdering Facility: [facility] Address: [address] [place] [address] Performed By: #### 2 4323-8, 2777-1, 60254-7 ####[facility] [id number] [place] [address] [place] aPTT PPPon 11-16-2024 aPTT Coag (PPP) [Time] 34.8 s High 23.0-32.4 [facility] Comment on above: Order Comment: Ramirez gamez Type: BLOOD SPECIMENOrdering Facility: [facility] Address: [address] [place] [address] Performed By: #### 3 4528-0, 06593-3 ####[facility] LABIA [id number] [place] [address] [place] CBC panel Auto (Bld)on 11-15 Erythrocyte distribution width (RBC) [Ratio] 13.8 % Normal 11.5-15.0 [facility] Comment on above: Order Comment: Speci men Type: BLOOD SPECIMENOrdering Facility: [facility] Address: [address] [place] [address] Performed By: #### 5 8410-2 ####[facility] [id number] [place] [address] [place] Hematocrit (Bld) [Volume fraction] 35.0 % Low 36.0-46.0 [facility] Comment on above: Order Comment: Speci men Type: BLOOD SPECIMENOrdering Facility: [facility] Address: [address] [place] [address] Performed By: #### 5 8410-2 ####[facility] [id number] [place] [address] [place] Hemoglobin (Bld) [Mass/Vol] 10.7 g/dL Low 11.5-15.5 [facility] Comment on above: Order Comment: Speci men Type: BLOOD SPECIMENOrdering Facility: [facility] Address: [address] [place] [address] Performed By: #### 5 8410-2 ####[facility] LABIA [id number] [place] [address] [place] MCH (RBC) [Entitic mass] 28.6 pg Normal 26.0-34.0 [facility] Comment on above: Order Comment: Speci men Type: BLOOD SPECIMENOrdering Facility: [facility] Address: [address] [place] [address] Performed By: #### 5 8410-2 ####[facility] LABIA [id number] [place] [address] [place] MCHC (RBC) [Mass/Vol] 30.6 g/dL Normal 30.5-36.0 [facility] Comment on above: Order Comment: Speci men Type: BLOOD SPECIMENOrdering Facility: [facility] Address: [address] [place] [address] Performed By: #### 5 8410-2 ####[facility] LABIA [id number] [place] [address] [place] MCV (RBC) [Entitic vol] 93.6 fL Normal 80.0-100.0 [facility] Comment on above: Order Comment: Speci men Type: BLOOD SPECIMENOrdering Facility: [facility] Address: [address] [place] [address] Performed By: #### 5 8410-2 ####[facility] LABIA [id number] [place] [address] [place] Nucleated RBC (Bld) [#/Vol] 10*3/uL Normal <0.01 [facility] Comment on above: Order Comment: Speci men Type: BLOOD SPECIMENOrdering Facility: [facility] Address: [address] [place] [address] Performed By: #### 5 8410-2 ####[facility] LABIA [id number] [place] [address] [place] Platelet mean volume (Bld) [Entitic vol] 10.5 fL Normal 9.0-12.7 [facility] Comment on above: Order Comment: Speci men Type: BLOOD SPECIMENOrdering Facility: [facility] Address: [address] [place] [address] Performed By: #### 5 8410-2 ####[facility] LABIA [id number] [id number], [place] [address] [place] Platelets (Bld) [#/Vol] 156 10*3/uL Normal 150-400 [facility] Comment on above: Order Comment: Speci men Type: BLOOD SPECIMENOrdering Facility: [facility] Address: [address] [place] [address] Performed By: #### 5 8410-2 ####[facility] LABCLIA [id number] [place] [address] [place] RBC (Bld) [#/Vol] 3.74 10*6/uL Low 3.90-5.20 [facility] Comment on above: Order Comment: Speci men Type: BLOOD SPECIMENOrdering Facility: [facility] Address: [address] [place] [address] Performed By: #### 5 8410-2 ####[facility] LABCLIA [id number] [place] [address] [place] WBC (Bld) [#/Vol] 4.56 10*3/uL Normal 3.70-11.00 [facility] Comment on above: Order Comment: Speci men Type: BLOOD SPECIMENOrdering Facility: [facility] Address: [address] [place] [address] Performed By: #### 5 8410-2 ####[facility] LABIA [id number] [place] [address] [place] CNPNon 11-15-2024 CNPN Normal [facility] Comprehensive metabolic 2000 panelon 11-15-2024 Albumin [Mass/Vol] 3.8 g/dL Low 3.9-4.9 [facility] Comment on above: Order Comment: Speci men Type: BLOOD SPECIMENOrdering Facility: [facility] Address: [address] [place] [address] Performed By: #### 2 4323-8 ####[facility] LABCLIA [id number] [place] [address] [place] ALP [Catalytic activity/Vol] 161 U/L High 34-123 [facility] Comment on above: Order Comment: Speci men Type: BLOOD SPECIMENOrdering Facility: [facility] Address: [address] [place] [place] [id number] Performed By: #### 2 4323-8 ####[facility] LABCLIA [id number] [address] [place] [address] [place] ALT [Catalytic activity/Vol] 33 U/L Normal 7-38 [facility] Comment on above: Order Comment: Speci men Type: BLOOD SPECIMENOrdering Facility: [facility] Address: [address] [place] [address] Performed By: #### 2 4323-8 ####[facility] LABCLIA [id number] [address], [facility]95 [place] Anion gap [Moles/Vol] 10 mmol/L Normal 8-15 [facility] Comment on above: Order Comment: Speci men Type: BLOOD SPECIMENOrdering Facility: [facility] Address: [address] [place] [address] Performed By: #### 2 4323-8 ####[facility] LABCLIA [id number] [place] [id number] [place] AST [Catalytic activity/Vol] 29 U/L Normal 13-35 [facility] Comment on above: Order Comment: Speci men Type: BLOOD SPECIMENOrdering Facility: [facility] Address: [address] [place] [address] Performed By: #### 2 4323-8 ####[facility] LABCLIA [id number] [place] [id number] [place] Bilirubin [Mass/Vol] 0.3 mg/dL Normal 0.2-1.3 [facility] Comment on above: Order Comment: Speci men Type: BLOOD SPECIMENOrdering Facility: [facility] Address: [address] [place], [place] [address] Performed By: #### 2 4323-8 ####[facility] LABCLIA [id number] [facility] [address] [address] [place] Calcium [Mass/Vol] 8.4 mg/dL Low 8.5-10.2 [facility] Comment on above: Order Comment: Speci men Type: BLOOD SPECIMENOrdering Facility: [facility] Address: [address] [place] [address] Performed By: #### 2 4323-8 ####[facility] LABCLIA [id number] [place] [address] [place] Chloride [Moles/Vol] 106 mmol/L Normal 98-107 [facility] Comment on above: Order Comment: Speci men Type: BLOOD SPECIMENOrdering Facility: [facility] Address: [address] [place] [address] Performed By: #### 2 4323-8 ####[facility] LABCLIA [id number] [place] [address] [place] CO2 [Moles/Vol] 22 mmol/L Normal 22-30 [facility] Comment on above: Order Comment: Speci men Type: BLOOD SPECIMENOrdering Facility: [facility] Address: [address] [place] [address] Performed By: #### 2 4323-8 ####[facility] LABCLIA [id number] [place] [address] [place] Creatinine [Mass/Vol] 0.77 mg/dL Normal 0.58-0.96 [facility] Comment on above: Order Comment: Speci men Type: BLOOD SPECIMENOrdering Facility: [facility] Address: [address] [place] [address] Performed By: #### 2 4323-8 ####[facility] LABCLIA [id number] [facility] [place] [id number] [place] Creatinine and Glomerular filtration rate.predicted panel (S/P/Bld) 77 mL/min/1.73m??? Normal >=60 [facility] Comment on above: Order Comment: Ramirez gamez Type: BLOOD SPECIMENOrdering Facility: [facility] Address: [address] [place] [address] Result Comment: Brandy mated Glomerular Filtration Rate (eGFR) is calculated using the 2020 CKD-EPI creatinine equation. This equation utilizes serum creatinine, sex, and age as parameters. The creatinine assay has traceable calibration to isotope dilution-mass spectrometry. Refer to KDIGO guidelines for clinical interpretation. In patients with unstable renal function, e.g. those with acute kidney injury, the eGFR may not accurately reflect actual GFR. Performed By: #### 2 4323-8 ####[facility] LABIA [id number] [place] [address] [place] Glucose [Mass/Vol] 120 mg/dL High 74-99 [facility] Comment on above: Order Comment: Ramirez gamez Type: BLOOD SPECIMENOrdering Facility: [facility] Address: [address] [place] [address] Result Comment: The [place] [employer] (ADA) provides guidance for cutoff values for fasting glucose and random glucose. The ADA defines fasting as no caloric intake for at least 8 hours. Fasting plasma glucose results between 100 to 125 mg/dL indicate increased risk for diabetes (prediabetes).Fasting plasma glucose results greater than or equal to 126 mg/dL meet the criteria for diagnosis of diabetes. In the absence of unequivocal hyperglycemia, results should be confirmed by repeat testing. In a patient with classic symptoms of hyperglycemia or hyperglycemic crisis, random plasma glucose results greater than or equal to 200 mg/dL meet the criteria for diagnosis of diabetes.Reference: Standards of Medical Care in Diabetes 2016, [place] [employer]. Diabetes Care. 2016.39(Suppl 1). Performed By: #### 2 4323-8 ####[facility] LABIA [id number] [place] [id number] [place] Potassium [Moles/Vol] 4.2 mmol/L Normal 3.7-5.1 [facility] Comment on above: Order Comment: Ramirez gamez Type: BLOOD SPECIMENOrdering Facility: [facility] Address: [address] [place] [address] Performed By: #### 2 4323-8 ####[facility] LABCLIA [id number] [place] [address] [place] Protein [Mass/Vol] 6.4 g/dL Normal 6.3-8.0 [facility] Comment on above: Order Comment: Speci men Type: BLOOD SPECIMENOrdering Facility: [facility] Address: [address] [place] [address] Performed By: #### 2 4323-8 ####[facility] LABCLIA [id number] [place] [address] [place] Sodium [Moles/Vol] 138 mmol/L Normal 136-144 [facility] Comment on above: Order Comment: Speci men Type: BLOOD SPECIMENOrdering Facility: [facility] Address: [address] [place] [address] Performed By: #### 2 4323-8 ####[facility] LABCLIA [id number] [place] [address] [place] Urea nitrogen [Mass/Vol] 16 mg/dL Normal 7-21 [facility] Comment on above: Order Comment: Speci men Type: BLOOD SPECIMENOrdering Facility: [facility] Address: [address] [place] [address] Performed By: #### 2 4323-8 ####[facility] LABIA [id number] [place] [address] [place] HISTORY PHYSICALon HISTORY PHYSICAL Normal [facility] NURSING PROGon 11-15-2024 NURSING PROG Normal [facility] PT panel Coag (PPP)on 2024 INR Coag (PPP) [Relative time] 1.2 {INR} Normal 0.9-1.3 [facility] Comment on above: Order Comment: Speci men Type: BLOOD SPECIMENOrdering Facility: [facility] Address: [address] [place] [address] Result Comment: Brook min K Antagonist (VKA) Therapeutic Range: INR 2 to 3 (Target INR of 2.5)Note: For patients treated with VKA drugs, such as warfarin, the [place] [employer] 2012 Guideline recommends a therapeutic INR range of 2 to 3 (target INR of 2.5). This recommendation includes high-risk patients with antiphospholipid syndrome with previous arterial or venous thromboembolism, current-generation mechanical or bioprosthetic aortic heart valve replacement.Note: Patients with mechanical aortic valve replacement and additional risk factors for thromboembolic events (atrial fibrillation, previous thromboembolism, LV dysfunction, hypercoagulable conditions) or an older generation mechanical AVR (i.e., ball in-Cage) or any mechanical MVR should have a INR therapeutic range of 2.5 to 3.5 (target INR of 3).Tanja GH, et al. Chest 2012, 141:7S-47SNishmarbella RA, et al. [facility] 2017, 70: 252-289 Performed By: #### 3 4528-0, 09304-0 ####[facility] LABCLIA [id number] [place] [address] [place] PT Coag (PPP) [Time] 12.8 s Normal 9.7-13.0 [facility] Comment on above: Order Comment: Speci men Type: BLOOD SPECIMENOrdering Facility: [facility] Address: [address] [place] [address] Performed By: #### 3 4528-0, 33438-5 ####[facility] LABCLIA [id number] [place] [address] [place] TYPE + SCREENon 11-15-2024 ABO A Normal [facility] Comment on above: Order Comment: Speci men Type: BLOOD SPECIMENOrdering Facility: [facility] Address: [address] [place] [address] Performed By: #### T SCR ####[facility] BLOOD BANKCLIA [id number] [place] [address] [place] Rh Nom (Bld) Positive Normal [facility] Comment on above: Order Comment: Speci men Type: BLOOD SPECIMENOrdering Facility: [facility] Address: [address] [place] [address] Performed By: #### T SCR ####[facility] BLOOD BANKCLIA [id number] [address] [place] TYPE AND SCREEN EXPIRATION 11/18/2024 23:59 Normal [facility] Comment on above: Order Comment: Speci men Type: BLOOD SPECIMENOrdering Facility: [facility] Address: [address] [place] [address] Performed By: #### T SCR ####[facility] BLOOD [facility] [id number] [place] [address] [place] aPTT PPPon 11-15-2024 aPTT Coag (PPP) [Time] 29.8 s Normal 23.0-32.4 [facility] Comment on above: Order Comment: Speci men Type: BLOOD SPECIMENOrdering Facility: [facility] Address: [address] [place] [address] Performed By: #### 3 4528-0, 75994-0 ####[facility] LABCLIA [id number] [address] [place] CNPNon 11-12-2024 CNPN Normal [facility] CNTHERAPYon 11-12-2024 CNTHERAPY OT/PT/Speech Visit ( [facility]) LAUREN ALCARAZ ([id number]) 1940 F Date Time Provider Department 11/12/24 3:[address] [facility] Date [facility] Provider Department Center 11/12/2024 3:30 PM [id number][facility] Reason for Visit: Occupational Therapy [504] Primary Visit Diagnosis: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, R29.898] Other Visit Diagnoses:Decreased activities of daily living (ADL) [Z78.9] Lack of coordination [R27.9] Weakness [R53.1] Allergies As of Date: 11/12/2024 Noted Allergy Reaction PROPOXYPHENE N-ACETAMINOPHEN 02/08/2006 14 - Other: See Comments Comments: hallucinations ADHESIVE TAPE-SILICONES 02/23/2015 16 - Unknown Comments: Other reaction(s): Other (comments) Not sure which type of tape but red skin. DOXYCYCLINE 08/09/2020 11 - Vomiting LAMICTAL (LAMOTRIGINE) 08/09/2020 7 - Swelling Comments: Lips swelling LATEX 02/14/2021 2 - Rash MOXIFLOXACIN 08/09/2020 1 - Mental Status Change PERCOCET (OXYCODONE-ACETAMINOPHEN) 1 - Mental Status Change PROPOXYPHENE 11/07/2008 1 - Mental Status Change 14 - Other: See Comments Comments: Hallucinations Includes Darvocet ZOLPIDEM 08/09/2020 1 - Mental Status Change ADHESIVE 02/23/2015 14 - Other: See Comments Comments: Not sure which type of tape but red skin. DICLOFENAC SODIUM 07/17/2015 14 - Other: See Comments Comments: Topical gel resulted in hand swelling. OXYCODONE 06/28/2020 1 - Mental Status Change Date Reviewed: 11/10/2024 Reviewed by: Jesika Fuentes, RT(R) - Fully Assessed Prescriptions as of 11/12/2024 - gentamicin 0.1% miconazole 2% triamcinolone 0.1% 1:1:1 topical cream (CPD) Apply to affected area two times a day for 14 days. - dorzolamide-timolol (COSOPT) 22.3-6.8 mg/mL ophthalmic solution Use 1 Drop in both eyes two times a day. - traMADol 25 mg tablet Take 25 mg by mouth every 6 hours as needed. - pantoprazole DR (PROTONIX) 40 mg tablet Take 1 tablet by mouth once daily. - HYDROcodone-acetaminophen (NORCO) 5-325 mg per tablet Take 1 tablet by mouth every 6 hours as needed for pain for up to 72 doses. - OXYGEN, HOME THERAPY, Inhale 2 L/min as instructed as directed. With naps and at bedtime - casanthranol/docusate sodium (DOCUSATE SODIUM WITH LAXATIVE ORAL) Take 1 tablet by mouth every other day. - furosemide (LASIX) 20 mg tablet Take 0.5 tablets by mouth every afternoon. As needed - potassium chloride ER (KLOR-CON) 20 mEq tablet Take 1 tablet by mouth once daily. - latanoprost (XALATAN) 0.005 % ophthalmic solution Use 1 Drop in both eyes daily at bedtime. - d-mannose 500 mg capsule Take 500 mg by mouth once daily. - donepezil (ARICEPT) 10 mg tablet Take 1 tablet by mouth daily with breakfast. - gabapentin (NEURONTIN) 100 mg capsule Take 100 mg by mouth once daily as needed. - famotidine (PEPCID) 10 mg tablet Take 10 mg by mouth twice daily. - DODEX 1,000 mcg/mL Inject 1,000 mcg intramuscularly once every month. Vitamin [id number] - ammonium lactate (LAC-HYDRIN) 12 % lotion - MULTIVITAMIN ORAL Take 1 tablet by mouth once daily. - albuterol (PROVENTIL) 2.5 mg /3 mL (0.083 %) nebulizer solution Use 2.5 mg via nebulizer as needed. - Lactobacillus acidophilus (PROBIOTIC) 10 billion cell cap Take 1 capsule by mouth once daily. - pramipexole (MIRAPEX) 0.5 mg tablet Take 0.5 mg by mouth two times a day. - vortioxetine (TRINTELLIX) 20 mg tablet Take 20 mg by mouth once daily. - atorvastatin (LIPITOR) 40 mg tablet Take 40 mg by mouth once daily. - ELIQUIS 5 mg tab(s) Take 5 mg by mouth two times a day. BID - levothyroxine (SYNTHROID) 50 mcg tablet Take 50 mcg by mouth once daily. - memantine (NAMENDA) 10 mg tablet Take 10 mg by mouth two times a day. - MYRBETRIQ 50 mg Tb24 Take 50 mg by mouth once daily. - lacosamide (VIMPAT) 100 mg tab Take [...] every 6 months. Last injection November 2020 Normal [facility] CT ABD/PEL W IVCONon 025 CT ABD/PEL W IVCON Invalid Interpretation Code [facility] Chest PA and Lateralon 11-09 Chest PA and Lateral [facility] [address] [place] [address] Chest PA and Lateral MR#: [id number] Acct: [id number] Name: LAUREN ALCARAZ Rep #: [id number] : 1940 F 84 From: Harjinder Doherty MD PCP: Dr. Chema Perry MD Status: REG CLI Study: Chest PA and Lateral Date of Exam: 11/09/24 Exam# [id number] Ordering Dr: Chema Perry MD EXAM: XR Chest, 2 Views CLINICAL INDICATION: POST OP EDEMA TECHNIQUE: Frontal and lateral views of the chest. COMPARISON: No relevant prior studies available. FINDINGS: LUNGS AND PLEURAL SPACES: Hyperlucent lungs. Flattening of the diaphragm. No consolidation. No pneumothorax. HEART: Unremarkable. No cardiomegaly. MEDIASTINUM: Unremarkable. Normal mediastinal contour. BONES/JOINTS: Unremarkable. No acute fracture. RAD/Chest PA and Lateral IMPRESSION: Suggestion of COPD. Reading Location: [facility] CC: Dr. 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 [id number] [place] [address] [place] Hematocrit (Bld) [Volume fraction] 33.8 % Low 36.0-46.0 [facility] Comment on above: Order Comment: Speci men Type: BLOOD SPECIMENOrdering Facility: [facility] Address: [address] [place] [address] Performed By: #### 5 8410-2 ####[facility] CENTERJESUS [id number] [place] [address] [place] Hemoglobin (Bld) [Mass/Vol] 10.7 g/dL Low 11.5-15.5 [facility] Comment on above: Order Comment: Speci men Type: BLOOD SPECIMENOrdering Facility: [facility] Address: [address] [place] [address] Performed By: #### 5 8410-2 ####[place] [facility] MARYNCStacy [id number] [place] [address] [place] MCH (RBC) [Entitic mass] 29.6 pg Normal 26.0-34.0 [facility] Comment on above: Order Comment: Speci men Type: BLOOD SPECIMENOrdering Facility: [facility] Address: [address] [place] [address] Performed By: #### 5 8410-2 ####[facility] MARYNCLIA [id number] [place] [address] [place] MCHC (RBC) [Mass/Vol] 31.7 g/dL Normal 30.5-36.0 [facility] Comment on above: Order Comment: Speci men Type: BLOOD SPECIMENOrdering Facility: [facility] Address: [address] [place] [address] Performed By: #### 5 8410-2 ####[facility] MARYNCLIA [id number] [place] [address] [place] MCV (RBC) [Entitic vol] 93.6 fL Normal 80.0-100.0 [facility] Comment on above: Order Comment: Speci men Type: BLOOD SPECIMENOrdering Facility: [facility] Address: [address] [place] [address] Performed By: #### 5 8410-2 ####[facility] [id number] [place] [address] [place] Nucleated RBC (Bld) [#/Vol] 10*3/uL Normal <0.01 [facility] Comment on above: Order Comment: Speci men Type: BLOOD SPECIMENOrdering Facility: [facility] Address: [address] [place] [address] Performed By: #### 5 8410-2 ####[facility] [id number] [place] [address] [place] Platelet mean volume (Bld) [Entitic vol] 10.2 fL Normal 9.0-12.7 [facility] Comment on above: Order Comment: Speci men Type: BLOOD SPECIMENOrdering Facility: [facility] Address: [address] [place] [address] Performed By: #### 5 8410-2 ####[facility] [id number] [place] [address] [place] Platelets (Bld) [#/Vol] 188 10*3/uL Normal 150-400 [facility] Comment on above: Order Comment: Speci men Type: BLOOD SPECIMENOrdering Facility: [facility] Address: [address] [place] [address] Performed By: #### 5 8410-2 ####[facility] [id number] [place] [address] [place] RBC (Bld) [#/Vol] 3.61 10*6/uL Low 3.90-5.20 [facility] Comment on above: Order Comment: Speci men Type: BLOOD SPECIMENOrdering Facility: [facility] Address: [address] [place] [address] Performed By: #### 5 8410-2 ####[facility] [id number] [place] [address] [place] WBC (Bld) [#/Vol] 4.89 10*3/uL Normal 3.70-11.00 [facility] Comment on above: Order Comment: Speci men Type: BLOOD SPECIMENOrdering Facility: [facility] Address: [address] [place] [address] Performed By: #### 5 8410-2 ####[facility] [id number] [place] [address] [place] CREATININE BLDon 11-08-2024 Creatinine [Mass/Vol] 0.79 mg/dL Normal 0.58-0.96 [facility] Comment on above: Order Comment: Speci men Type: BLOOD SPECIMENOrdering Facility: [facility] Address: [address] [place] [address] Performed By: #### C RET1 ####[facility] [id number] [place] [address] [place] Creatinine and Glomerular filtration rate.predicted panel (S/P/Bld) 75 mL/min/1.73m??? Normal >=60 [facility] Comment on above: Order Comment: Speci men Type: BLOOD SPECIMENOrdering Facility: [facility] Address: [address] [place] [address] Result Comment: Brandy mated Glomerular Filtration Rate (eGFR) is calculated using the 2020 CKD-EPI creatinine equation. This equation utilizes serum creatinine, sex, and age as parameters. The creatinine assay has traceable calibration to isotope dilution-mass spectrometry. Refer to KDIGO guidelines for clinical interpretation. In patients with unstable renal function, e.g. those with acute kidney injury, the eGFR may not accurately reflect actual GFR. Performed By: #### C RET1 ####[facility]OWN[facility] [id number] [address] [place] CNTHERAPYon 11-05-2024 CNTHERAPY OT/PT/Speech Visit ( [facility]) LAUREN ALCARAZ ([id number]) 1940 F Date Time Provider Department 11/05/24 2:[address] [facility] Date Time Provider Department Center 11/05/2024 2:00 PM [id number], DIANDRA [facility] Med Reason for Visit: Occupational Therapy [504] Primary Visit Diagnosis: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, R29.898] Other Visit Diagnoses:Decreased activities of daily living (ADL) [Z78.9] Lack of coordination [R27.9] Weakness [R53.1] Allergies As of Date: 11/05/2024 Noted Allergy Reaction PROPOXYPHENE N-ACETAMINOPHEN 02/08/2006 14 - Other: See Comments Comments: hallucinations ADHESIVE TAPE-SILICONES 02/23/2015 16 - Unknown Comments: Other reaction(s): Other (comments) Not sure which type of tape but red skin. DOXYCYCLINE 08/09/2020 11 - Vomiting LAMICTAL (LAMOTRIGINE) 08/09/2020 7 - Swelling Comments: Lips swelling LATEX 02/14/2021 2 - Rash MOXIFLOXACIN 08/09/2020 1 - Mental Status Change PERCOCET (OXYCODONE-ACETAMINOPHEN) 1 - Mental Status Change PROPOXYPHENE 11/07/2008 1 - Mental Status Change 14 - Other: See Comments Comments: Hallucinations Includes Darvocet ZOLPIDEM 08/09/2020 1 - Mental Status Change ADHESIVE 02/23/2015 14 - Other: See Comments Comments: Not sure which type of tape but red skin. DICLOFENAC SODIUM 07/17/2015 14 - Other: See Comments Comments: Topical gel resulted in hand swelling. OXYCODONE 06/28/2020 1 - Mental Status Change Date Reviewed: 11/03/2024 Reviewed by: Denice Jacobs PA-C - Fully Assessed Prescriptions as of 11/05/2024 - dorzolamide-timolol (COSOPT) 22.3-6.8 mg/mL ophthalmic solution Use 1 Drop in both eyes two times a day. - traMADol 25 mg tablet Take 25 mg by mouth every 6 hours as needed. - gentamicin 0.1% miconazole 2% triamcinolone 0.1% 1:1:1 topical cream (CPD) Apply to affected area two times a day for 14 days. - pantoprazole DR (PROTONIX) 40 mg tablet Take 1 tablet by mouth once daily. - HYDROcodone-acetaminophen (NORCO) 5-325 mg per tablet Take 1 tablet by mouth every 6 hours as needed for pain for up to 72 doses. - OXYGEN, HOME THERAPY, Inhale 2 L/min as instructed as directed. With naps and at bedtime - casanthranol/docusate sodium (DOCUSATE SODIUM WITH LAXATIVE ORAL) Take 1 tablet by mouth every other day. - furosemide (LASIX) 20 mg tablet Take 0.5 tablets by mouth every afternoon. As needed - potassium chloride ER (KLOR-CON) 20 mEq tablet Take 1 tablet by mouth once daily. - latanoprost (XALATAN) 0.005 % ophthalmic solution Use 1 Drop in both eyes daily at bedtime. - d-mannose 500 mg capsule Take 500 mg by mouth once daily. - donepezil (ARICEPT) 10 mg tablet Take 1 tablet by mouth daily with breakfast. - gabapentin (NEURONTIN) 100 mg capsule Take 100 mg by mouth once daily as needed. - famotidine (PEPCID) 10 mg tablet Take 10 mg by mouth twice daily. - DODEX 1,000 mcg/mL Inject 1,000 mcg intramuscularly once every month. Vitamin [id number]-21-[id number] - ammonium lactate (LAC-HYDRIN) 12 % lotion - MULTIVITAMIN ORAL Take 1 tablet by mouth once daily. - albuterol (PROVENTIL) 2.5 mg /3 mL (0.083 %) nebulizer solution Use 2.5 mg via nebulizer as needed. - Lactobacillus acidophilus (PROBIOTIC) 10 billion cell cap Take 1 capsule by mouth once daily. - pramipexole (MIRAPEX) 0.5 mg tablet Take 0.5 mg by mouth two times a day. - vortioxetine (TRINTELLIX) 20 mg tablet Take 20 mg by mouth once daily. - atorvastatin (LIPITOR) 40 mg tablet Take 40 mg by mouth once daily. - ELIQUIS 5 mg tab(s) Take 5 mg by mouth two times a day. BID - levothyroxine (SYNTHROID) 50 mcg tablet Take 50 mcg by mouth once daily. - memantine (NAMENDA) 10 mg tablet Take 10 mg by mouth two times a day. - MYRBETRIQ 50 mg Tb24 Take 50 mg by mouth once daily. - lacosamide (VIMPAT) 100 mg tab Take [...] every 6 months. Last injection November 2020 Annotated image of OT HAND NERVE GLIDE ULNAR last updated by Radha Street OTR/L on 11/05/2024 2:13 PM Normal [facility] CNOVon 11-03-2024 CNOV Normal [facility] VISUAL FIELD 24-2 OU (BOTH E YES)on 11-01-2024 [facility] Radiology Study observation (narrative) [facility] [id number] 10-29-2024 [id number] HNO ID: [id number] Author: RADHA STREET OTR/L Service: ? Author Type: Occupational Therapist Type: [id number] Filed: 10/29/2024 12:32 Note Text: [facility] Rehabilitation and Sports Therapy Occupational Therapy Plan of Care Certification Patient Name: Lauren Alcaraz : 1940 [facility] #: [id number] Date: 10/29/2024 To: Laisha Lizarraga, APR* From Therapist: LUCIEN Greenwood RE: Patient Certification/ Recertification Your review, approval and electronic signature are required in order to comply with Payor: MEDICARE / Plan: MEDICARE A AND B / Product Type: Medicare / regulations. The identified Occupational Therapy PLAN OF CARE for the patient is as follows: Z78.9 Decreased activities of daily living (ADL) (primary encounter diagnosis) R29.818, R29.898 Fine motor impairment R27.9 Lack of coordination R53.1 Weakness PLAN OF CARE: Assessment: Lauren Alcaraz presents with chief complaint of bilateral fine motor coordination impairment that interferes with gripping, pinching (handwriting) . The patient presents with impairments in coordination, sensation, and strength. PROMIS? (Patient-Reported Outcomes Measurement Information System) scores were reviewed and identified as a rehabilitation concern. Prognosis for therapy is Good due to: (good motivation) Fair due to: chronic nature of impairments . The patient will benefit from skilled therapy services to meet the goals established for this plan of care as noted below. Goals for Episode of Care: established 10/29/24 Patient will complete HEP at Modified [place] level. Patient will increase bilateral caustic loader and pinches by 5# to improve function for leisure / recreation skills. Patient will demonstrate improved neuromuscular coordination as evidenced by improved 9-hole peg test to WNL for age range to improve function for light functional tasks. Patient will report improved efficiency with handwriting to at least 60% of normal with adaptive techniques. Patient will report improved efficiency with buttoning with adaptive techniques PRN Patient Goals: improve use of hands, buttoning, improve handwriting (writing in cards) Time Frame for Goals and Treatment : 12/28/24 Planned Interventions, Frequency, and Duration: Current Frequency: 1x/week Duration: 8 weeks Total Number of Visits Planned: 8 Planned Treatment Interventions: Therapeutic exercise (80511), Neuromuscular re-education (29098), Self-residential management (80083), Patient/Family/Caregiver Education PLAN FOR NEXT VISIT:assess different writing utensils, proximal stability? button hook, gentle caustic loader strengthening Patient demonstrates good understanding of plan of care and treatment. The above goals and plan of care were discussed and agreed upon by patient/family. For further details regarding this patient refer to the Occupational Therapy electronically documented visit dated 10/29/2024. Provider Attestation I have reviewed the treatment plan for Lauren Alcaraz, CCF# [id number] for the period of 10/29/24 -- 12/28/24, established on 10/29/2024. Signature certifies the need for therapy services. [facility] CNOVon 10-29-2024 CNOV Normal [facility] CNPNon 10-29-2024 CNPN Telephone (GENLUH) LAUREN ALCARAZ ([id number]) 1940 F Date Time Provider Department 10/29/24 ANILA DE PAZ GENLU During your visit today, we recorded the following information about you: Sandie Messina 10/29/2024 2:26 PM Signed Incoming call from [facility] states the compound that was sent over they do not cover it and it would have to be sent to a different pharmacy. Sandie Messina Allergies As of Date: 10/29/2024 Noted Allergy Reaction PROPOXYPHENE N-ACETAMINOPHEN 02/08/2006 14 - Other: See Comments Comments: hallucinations ADHESIVE TAPE-SILICONES 02/23/2015 16 - Unknown Comments: Other reaction(s): Other (comments) Not sure which type of tape but red skin. DOXYCYCLINE 08/09/2020 11 - Vomiting LAMICTAL (LAMOTRIGINE) 08/09/2020 7 - Swelling Comments: Lips swelling LATEX 02/14/2021 2 - Rash MOXIFLOXACIN 08/09/2020 1 - Mental Status Change PERCOCET (OXYCODONE-ACETAMINOPHEN) 1 - Mental Status Change PROPOXYPHENE 11/07/2008 1 - Mental Status Change 14 - Other: See Comments Comments: Hallucinations Includes Darvocet ZOLPIDEM 08/09/2020 1 - Mental Status Change ADHESIVE 02/23/2015 14 - Other: See Comments Comments: Not sure which type of tape but red skin. DICLOFENAC SODIUM 07/17/2015 14 - Other: See Comments Comments: Topical gel resulted in hand swelling. OXYCODONE 06/28/2020 1 - Mental Status Change Date Reviewed: 10/29/2024 Reviewed by: Tamiko Harmon MA - Fully Assessed Prescriptions as of 10/29/2024 - traMADol 25 mg tablet Take 25 mg by mouth every 6 hours as needed. - gentamicin 0.1% miconazole 2% triamcinolone 0.1% 1:1:1 topical cream (CPD) Apply to affected area two times a day for 14 days. - pantoprazole DR (PROTONIX) 40 mg tablet Take 1 tablet by mouth once daily. - HYDROcodone-acetaminophen (NORCO) 5-325 mg per tablet Take 1 tablet by mouth every 6 hours as needed for pain for up to 72 doses. - OXYGEN, HOME THERAPY, Inhale 2 L/min as instructed as directed. With naps and at bedtime - casanthranol/docusate sodium (DOCUSATE SODIUM WITH LAXATIVE ORAL) Take 1 tablet by mouth every other day. - furosemide (LASIX) 20 mg tablet Take 0.5 tablets by mouth every afternoon. As needed - potassium chloride ER (KLOR-CON) 20 mEq tablet Take 1 tablet by mouth once daily. - brimonidine (ALPHAGAN) 0.2 % ophthalmic solution Use 1 Drop in both eyes two times a day. - latanoprost (XALATAN) 0.005 % ophthalmic solution Use 1 Drop in both eyes daily at bedtime. - d-mannose 500 mg capsule Take 500 mg by mouth once daily. - donepezil (ARICEPT) 10 mg tablet Take 1 tablet by mouth daily with breakfast. - gabapentin (NEURONTIN) 100 mg capsule Take 100 mg by mouth once daily as needed. - famotidine (PEPCID) 10 mg tablet Take 10 mg by mouth twice daily. - DODEX 1,000 mcg/mL Inject 1,000 mcg intramuscularly once every month. Vitamin F-89-xmiiefqrudybrn - ammonium lactate (LAC-HYDRIN) 12 % lotion - MULTIVITAMIN ORAL Take 1 tablet by mouth once daily. - albuterol (PROVENTIL) 2.5 mg /3 mL (0.083 %) nebulizer solution Use 2.5 mg via nebulizer as needed. - Lactobacillus acidophilus (PROBIOTIC) 10 billion cell cap Take 1 capsule by mouth once daily. - pramipexole (MIRAPEX) 0.5 mg tablet Take 0.5 mg by mouth two times a day. - vortioxetine (TRINTELLIX) 20 mg tablet Take 20 mg by mouth once daily. - atorvastatin (LIPITOR) 40 mg tablet Take 40 mg by mouth once daily. - ELIQUIS 5 mg tab(s) Take 5 mg by mouth two times a day. BID - levothyroxine (SYNTHROID) 50 mcg tablet Take 50 mcg by mouth once daily. - memantine (NAMENDA) 10 mg tablet Take 10 mg by mouth two times a day. - MYRBETRIQ 50 mg Tb24 Take 50 mg by mouth once daily. 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 [facility] CNTHERAPYon 10-29-2024 CNTHERAPY OT/PT/Speech Visit ( [facility]) LAUREN ALCARAZ ([id number]) 1940 F Date Time Provider Department 10/29/24 10:[address] [facility] Date Time Provider Department Center 10/29/2024 10:45 AM [id number][facility] Reason for Visit: OT EVAL [748] Primary Visit Diagnosis:Decreased activities of daily living (ADL) [Z78.9] Other Visit Diagnoses: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, R29.898] Lack of coordination [R27.9] Weakness [R53.1] Allergies As of Date: 10/29/2024 Noted Allergy Reaction PROPOXYPHENE N-ACETAMINOPHEN 02/08/2006 14 - Other: See Comments Comments: hallucinations ADHESIVE TAPE-SILICONES 02/23/2015 16 - Unknown Comments: Other reaction(s): Other (comments) Not sure which type of tape but red skin. DOXYCYCLINE 08/09/2020 11 - Vomiting LAMICTAL (LAMOTRIGINE) 08/09/2020 7 - Swelling Comments: Lips swelling LATEX 02/14/2021 2 - Rash MOXIFLOXACIN 08/09/2020 1 - Mental Status Change PERCOCET (OXYCODONE-ACETAMINOPHEN) 1 - Mental Status Change PROPOXYPHENE 11/07/2008 1 - Mental Status Change 14 - Other: See Comments Comments: Hallucinations Includes Darvocet ZOLPIDEM 08/09/2020 1 - Mental Status Change ADHESIVE 02/23/2015 14 - Other: See Comments Comments: Not sure which type of tape but red skin. DICLOFENAC SODIUM 07/17/2015 14 - Other: See Comments Comments: Topical gel resulted in hand swelling. OXYCODONE 06/28/2020 1 - Mental Status Change Date Reviewed: 10/13/2024 Reviewed by: Arun Buenrostro MA - Fully Assessed Prescriptions as of 10/29/2024 - pantoprazole DR (PROTONIX) 40 mg tablet Take 1 tablet by mouth once daily. - HYDROcodone-acetaminophen (NORCO) 5-325 mg per tablet Take 1 tablet by mouth every 6 hours as needed for pain for up to 72 doses. - OXYGEN, HOME THERAPY, Inhale 2 L/min as instructed as directed. With naps and at bedtime - casanthranol/docusate sodium (DOCUSATE SODIUM WITH LAXATIVE ORAL) Take 1 tablet by mouth every other day. - furosemide (LASIX) 20 mg tablet Take 0.5 tablets by mouth every afternoon. As needed - potassium chloride ER (KLOR-CON) 20 mEq tablet Take 1 tablet by mouth once daily. - brimonidine (ALPHAGAN) 0.2 % ophthalmic solution Use 1 Drop in both eyes two times a day. - latanoprost (XALATAN) 0.005 % ophthalmic solution Use 1 Drop in both eyes daily at bedtime. - d-mannose 500 mg capsule Take 500 mg by mouth once daily. - donepezil (ARICEPT) 10 mg tablet Take 1 tablet by mouth daily with breakfast. - gabapentin (NEURONTIN) 100 mg capsule Take 100 mg by mouth once daily as needed. - famotidine (PEPCID) 10 mg tablet Take 10 mg by mouth twice daily. - DODEX 1,000 mcg/mL Inject 1,000 mcg intramuscularly once every month. Vitamin A-86-djvshhvnedwsmk - ammonium lactate (LAC-HYDRIN) 12 % lotion - MULTIVITAMIN ORAL Take 1 tablet by mouth once daily. - albuterol (PROVENTIL) 2.5 mg /3 mL (0.083 %) nebulizer solution Use 2.5 mg via nebulizer as needed. - Lactobacillus acidophilus (PROBIOTIC) 10 billion cell cap Take 1 capsule by mouth once daily. - pramipexole (MIRAPEX) 0.5 mg tablet Take 0.5 mg by mouth two times a day. - vortioxetine (TRINTELLIX) 20 mg tablet Take 20 mg by mouth once daily. - atorvastatin (LIPITOR) 40 mg tablet Take 40 mg by mouth once daily. - ELIQUIS 5 mg tab(s) Take 5 mg by mouth two times a day. BID - levothyroxine (SYNTHROID) 50 mcg tablet Take 50 mcg by mouth once daily. - memantine (NAMENDA) 10 mg tablet Take 10 mg by mouth two times a day. - MYRBETRIQ 50 mg Tb24 Take 50 mg by mouth once daily. - lacosamide (VIMPAT) 100 mg tab Take [...] every 6 months. Last injection November 2020 [facility] Pulmonary Visit Reporton Pulmonary Visit Report [facility] of [address] [place] [address] OFFICE VISIT Date of Service: 10/22/24 MR#: [id number] Acct: [id number] Name: LAUREN ALCARAZ Rep #: [id number] : 1940 Provider: BURAK Vincent Age/Sex: 84/F Location: [facility] Status: Signed Assessment and Plan Assessment and Plan (1) Bronchiectasis: Status: Chronic Qualifiers: Bronchiectasis type: uncomplicated Qualified Code(s): J47.9 - Bronchiectasis, uncomplicated Comment: Lingular subsegment Plan: Stable, no signs of exacerbation of bronchiectasis today. No change in maintenance medications, she is only requiring souj-ncn-bmonixx antihistamine. No additional testing at this time. Encouraged the use of Acapella device. Symptoms are mild and I believe can be managed by her primary care doctor. Follow-up as needed. (2) Kyphoscoliosis deformity of spine: Status: Chronic Plan: Complicates exam, plan, care and prognosis. HPI HPI Comments Details: This patient presents to the office today for follow-up of her bronchiectasis and to discuss test results. She is in a wheelchair, currently on room air and accompanied today by her . She has not recently been seen in the ED or urgent care for any respiratory illness. She has not required any antibiotics or prednisone for any breathing problems. She is compliant with use of Zyrtec daily. She has not been using an Acapella device. She reports that she cannot find it. She does use 2 L/min of supplemental oxygen with sleep. She denies any shortness of breath. She denies any cough, sputum production or hemoptysis. She denies any wheezing, chest tightness, chest pain or palpitations. She also denies any fever, chills or body aches. Intake Vital Signs 04/05/24 13:24 09/18/24 08:37 10/22/24 08:26 Height 4 ft 8 in 4 ft 7 in 4 ft 7 in Weight: 103 lb BMI 23.9 BP 125/79 H Blood Pressure Location Lt radial Position Sitting Respiration 18 Pulse 72 Pulse Source Monitor Temp 97.4 F L Temperature Source Temporal Artery Pulse Oximetry (%) 93 Oxygen Delivery Method room air Intake Visit Reasons: 6 M FU Pulmonary Function Technologist Required: No DME Vendor: [employer] Accompanied by: Is patient in pain?: No Allergies doxycycline Allergy (Mild, Verified 10/22/24 14:23) Vomiting acetaminophen (From Darvocet-N) Allergy (Verified 10/22/24 14:23) Other lamotrigine (From Lamictal) Allergy (Verified 10/22/24 14:23) Lip Swelling moxifloxacin HCl (From Avelox) Allergy (Verified 10/22/24 14:23) Other propoxyphene napsylate (From Darvocet-N) Allergy (Verified 10/22/24 14:23) Other hydrocodone Adverse Reaction (Severe, Verified 10/22/24 14:23) Confusion oxycodone (From Percocet) Adverse Reaction (Severe, Verified 10/22/24 14:23) Confusion zolpidem tartrate (From Ambien) Adverse Reaction (Verified 10/22/24 14:23) Other Medications ???Medication ???Instructions ???Recorded ???Confirmed ???Type L.acidophil-L.casei-B.bifid -B.longum-FOS 1 cap PO DAILY Supplement 09/02/21 10/22/24 History 2 billion cell-50 mg capsule (Probiotic Blend) aspirin 81 mg tablet,delayed 81 mg PO DAILY 01/10/22 10/22/24 H istory release (Adult Aspirin Regimen) d-mannose 500 mg capsule 500 mg PO DAILY 06/07/22 10/22/24 History famotidine 10 mg tablet 10 mg PO BID 06/07/22 10/22/24 His tory multivitamin 1 tab PO DAILY 06/07/22 10/22/24 H istory mirabegron 50 mg tablet,extended 50 mg PO QHS Check with primary 10/22/24 History release 24 hr (Myrbetriq) doctor albuterol sulfate 2.5 mg/3 mL 2.5 mg (3 mL) inhalation Q6H PRN 0 04/07/23 10/22/24 Rx (0.083 %) solution for nebulization Sob /Or Wheezing #180 mL syringes BD ECLIPSE 04/11/23 10/22/24 History latanoprost 0.005 % eye drops 1 drp ophthalmic (eye) DAILY 08/1310/22/24 History (Xalatan) furosemide 20 mg tablet 10 mg PO DAILY PRN edema 10/08/23 10/22/24 History donepezil 5 mg tablet (Aricept) 10 mg (2 x 5 mg) PO DAILY #90 tabs 11/12/23 10/22/24 Rx nitroglycerin 0.4 mg sublingual 0.4 mg sublingual Q5-15M PRN chest 11/12/23 10/22/24 Rx tablet pain #25 tabs denosumab 60 mg/mL subcutaneous 60 mg subcut [id number] #1 mL 10/22/24 Rx syringe (Prolia) BD Sry/needle eclips See Rx Instructions IM .COMPLEX 10/22/24 Rx #12 ea azelastine 137 mcg (0.1 %) nasal 2 spray intranasal 03/16/24 History spray cetirizine 10 mg capsule (Zyrtec) 10 mg PO DAILY PRN allergy sympto ms 03/16/24 10/22/24 History fluticasone propionate 50 1 spray intranasal DAILY 03/16/24 10/22/24 History mcg/actuation nasal spray,suspension (Allergy Relief (fluticasone)) cyanocobalamin (vitamin B-12) 1,000 mcg IM QMONTH #10 mL 4 (more content not included)... Normal [facility] Breast imaging reportOrdered By: Sam Mac on 10-18-2024 Study report [facility] Imaging Services [address] [place] [address] SCRN MAMM (CAD)W/EVERETT BILAT MR#: [id number] Acct: [id number] Name: LAUREN ALCARAZ Rep #: [id number] : 1940 F 84 From: Cody Mca MD PCP: Dr. Chema Perry MD Status: REG CLI Study:SCRN MAMM (CAD)W/EVERETT BILAT Date of Exa m: 10/18/24 Exam# [id number] Ordering Dr: Chema Perry MD PROCEDURE: SCRN MAMM (CAD)W/EVERTET BILAT REASON FOR EXAM: F, Age 84 y/o, personal history of breast cancer. Prior left lumpectomy with radiation. TECHNIQUE: Bilateral screening digital breast tomosynthesis with 2D and 3D images. Computeraided detection. COMPARISON: Prior exam(s) dating back to January 10, 2023.. FINDINGS: The breasts are extremely dense which lowers the sensitivity of mammography. Thepatient is status post lumpectomy in the deep upper lateral aspect of the left breast with resultant scarring and dystrophic calcification at the operative site. This is unchanged. No suspicious masses, areas of developing architectural distortion, or suspicious calcifications. BI/SCRN MAMM (CAD)W/EVERETT BILAT IMPRESSION: BI-RADS 2: BENIGN. RECOMMEND ANNUAL MAMMOGRAPHIC SCREENING. Follow-up code: Routine Follow-up The patient will be notified of the results by letter. Reading Location: [id number] CC: Dr. Chema Perry MD ~ Synthetic Staple Extruder: Signed [facility] SCRN MAMM (CAD)W/EVERETT BILATo n 10-18-2024 SCRN MAMM (CAD)W/EVERETT BILAT [facility] Services [address] [place], [place] [address] SCRN MAMM (CAD)W/EVERETT BILAT MR#: [id number] Acct: [id number] Name: LAUREN ALCARAZ Rep #: [id number] : 1940 F 84 From: Sam stafford MD PCP: Dr. Chema Perry MD Status: [facility] CLI Study: SCRN MAMM (CAD)W/EVERETT BILAT Date of Exam: 11/09 Exam# [id number] Ordering Dr: Chema Perry MD PROCEDURE: SCRN MAMM (CAD)W/EVERETT BILAT REASON FOR EXAM: F, Age 84 y/o, personal history of breast cancer. Prior left lumpectomy with radiation. TECHNIQUE: Bilateral screening digital breast tomosynthesis with 2D and 3D images. Computer aided detection. COMPARISON: Prior exam(s) dating back to January 10, 2023.. FINDINGS: The breasts are extremely dense which lowers the sensitivity of mammography. The patient is status post lumpectomy in the deep upper lateral aspect of the left breast with resultant scarring and dystrophic calcification at the operative site. This is unchanged. No suspicious masses, areas of developing architectural distortion, or suspicious calcifications. BI/SCRN MAMM (CAD)W/EVERETT BILAT IMPRESSION: BI-RADS 2: BENIGN. RECOMMEND ANNUAL MAMMOGRAPHIC SCREENING. Follow-up code: Routine Follow-up The patient will be notified of the results by letter. Reading Location: [id number] CC: Dr. Chema Perry MD Synthetic Staple Extruder: Signed Normal [facility] MR/BMS.IMBon 10-14-2024 MR/BMS.IMB [facility] [address] [place] [address] OFFICE VISIT Date of Service: 10/14/24 MR#: [id number] Acct: [id number] Name: LAUREN ALCARAZ Rep #: [id number] : 1940 Provider: Dr. Chema williamson MD Age/Sex: 84/F Location: [facility] Status: Signed Intake Vital Signs 09/18/24 08:37 10/14/24 13:18 Height 4 ft 7 in 4 ft 7 in Weight: 105 lb 4 oz BMI 24.4 BP 113/79 Blood Pressure Location Lt brachial Position Sitting Respiration 16 Pulse 78 Pulse Source Monitor Temp 98.4 F Temp Source Temporal Pulse Oximetry (%) 90 Oxygen Delivery Method room air Intake Visit Reasons: F/U Assisted Discharge Chief Complaint: F/U USP discharge Pulmonary Function Technologist Required: No Accompanied by: Self Is patient in pain?: Yes (L side) Pain scale (1-10): 8 Allergies doxycycline Allergy (Mild, Verified 10/14/24 13:03) Vomiting acetaminophen (From Darvocet-N) Allergy (Verified 10/14/24 13:03) Other lamotrigine (From Lamictal) Allergy (Verified 10/14/24 13:03) Lip Swelling moxifloxacin HCl (From Avelox) Allergy (Verified 10/14/24 13:03) Other propoxyphene napsylate (From Darvocet-N) Allergy (Verified 10/14/24 13:03) Other hydrocodone Adverse Reaction (Severe, Verified 10/14/24 13:15) Confusion oxycodone (From Percocet) Adverse Reaction (Severe, Verified 10/14/24 13:15) Confusion zolpidem tartrate (From Ambien) Adverse Reaction (Verified 10/14/24 13:03) Other Medications ???Medication ???Instructions ???Recorded ???Confirmed ???Type L.acidophil-L.casei-B.bifid -B.longum-FOS 1 cap PO DAILY Supplement 09/02/21 10/14/24 History 2 billion cell-50 mg capsule (Probiotic Blend) aspirin 81 mg tablet,delayed 81 mg PO DAILY 01/10/22 10/14/24 H istory release (Adult Aspirin Regimen) d-mannose 500 mg capsule 500 mg PO DAILY 06/07/22 10/14/24 History famotidine 10 mg tablet 10 mg PO BID 06/07/22 10/14/24 His tory multivitamin 1 tab PO DAILY 06/07/22 10/14/24 H istory mirabegron 50 mg tablet,extended 50 mg PO QHS Check with primary 10/14/24 History release 24 hr (Myrbetriq) doctor albuterol sulfate 2.5 mg/3 mL 2.5 mg (3 mL) inhalation Q6H PRN 0 04/07/23 10/14/24 Rx (0.083 %) solution for nebulization Sob /Or Wheezing #180 mL syringes BD ECLIPSE 04/11/23 10/14/24 History latanoprost 0.005 % eye drops 1 drp ophthalmic (eye) DAILY 08/1310/14/24 History (Xalatan) furosemide 20 mg tablet 10 mg PO DAILY PRN edema 10/08/23 10/14/24 History donepezil 5 mg tablet (Aricept) 10 mg (2 x 5 mg) PO DAILY #90 tabs 11/12/23 10/14/24 Rx nitroglycerin 0.4 mg sublingual 0.4 mg sublingual Q5-15M PRN chest 11/12/23 10/14/24 Rx tablet pain #25 tabs denosumab 60 mg/mL subcutaneous 60 mg subcut [id number] #1 mL 10/14/24 Rx syringe (Prolia) BD Sry/needle eclips See Rx Instructions IM .COMPLEX 10/14/24 Rx #12 ea azelastine 137 mcg (0.1 %) nasal 2 spray intranasal 03/16/24 History spray cetirizine 10 mg capsule (Zyrtec) 10 mg PO DAILY PRN allergy sympto ms 03/16/24 10/14/24 History fluticasone propionate 50 1 spray intranasal DAILY 03/16/24 10/14/24 History mcg/actuation nasal spray,suspension (Allergy Relief (fluticasone)) cyanocobalamin (vitamin B-12) 1,000 mcg IM QMONTH #10 mL 4 10/14/24 Rx 1,000 mcg/mL injection solution PEP device #1 ea 04/06/24 10/14/24 Rx apixaban 5 mg tablet (Eliquis) 5 mg PO BID #180 tabs 06/08/24 Rx atorvastatin 40 mg tablet See Rx Instructions .Route 4 10/14/24 Rx .COMPLEX #90 tabs lacosamide 100 mg tablet (Vimpat) 100 mg PO BID #180 tabs 06/08/24 10/14/24 Rx levothyroxine 50 mcg tablet 50 mcg PO DAILY Thyroid #90 tabs 1 10/14/24 Rx memantine 10 mg tablet 10 mg PO BID Alzheimer's #180 tabs 06/08/24 10/14/24 Rx pramipexole 0.5 mg tablet 0.5 mg PO BID #180 tabs 06/08/24 0 10/14/24 Rx vortioxetine 20 mg tablet 20 mg PO DAILY DEPRESSION #90 tabs 06/08/24 10/14/24 Rx (Trintellix) gabapentin 100 mg capsule 100 mg PO DAILY PRN restless 08/3110/14/24 Rx leg(s) #90 caps brimonidine 0.2 % eye drops drp ophthalmic (eye) 10/14/2409/19 History olopatadine 0.6 % nasal spray spray intranasal 10/14/24 10/14/24 History pantoprazole 40 mg tablet,delayed mg PO DAILY 10/14/24 10/14/24 His tory release potassium chloride 20 mEq meq PO DAILY 10/14/24 10/14/24 His tory tablet,extended release(part/cryst) (Klor-Con M) tramadol 25 mg tablet 25 mg PO Q6H 14 days #56 tabs 09/1910/14/24 Rx Have you fallen in the past year?: [facility] Open wound of right lower extremity Contusion of right foot Kyphoscoliosis deform (more content not included)... Normal [facility] CNOVon 10-13-2024 CNOV Normal [facility] CNOVon 10-08-2024 CNOV Normal [facility] CASE MANAGEMon 09-23-2024 CASE MANAGEM Normal [facility] CASE MANAGEM Normal [facility] CASE MANAGEM Normal [facility] CBC panel Auto (Bld)on 09-23 Erythrocyte distribution width (RBC) [Ratio] 13.6 % Normal 11.5-15.0 [facility] Comment on above: Order Comment: Speci men Type: BLOOD SPECIMENOrdering Facility: [facility] Address: [address] [place] [address] Performed By: #### 5 8410-2 ####[facility] LABCLIA [id number] [place] [address] [place] Hematocrit (Bld) [Volume fraction] 33.2 % Low 36.0-46.0 [facility] Comment on above: Order Comment: Speci men Type: BLOOD SPECIMENOrdering Facility: [facility] Address: [address] [place] [address] Performed By: #### 5 8410-2 ####[facility] LABIA [id number] [place] [address] [place] Hemoglobin (Bld) [Mass/Vol] 10.7 g/dL Low 11.5-15.5 [facility] Comment on above: Order Comment: Speci men Type: BLOOD SPECIMENOrdering Facility: [facility] Address: [address] [place] [address] Performed By: #### 5 8410-2 ####[facility] LABIA [id number] [place] [address] [place] MCH (RBC) [Entitic mass] 29.2 pg Normal 26.0-34.0 [facility] Comment on above: Order Comment: Speci men Type: BLOOD SPECIMENOrdering Facility: [facility] Address: [address] [place] [address] Performed By: #### 5 8410-2 ####[facility] LABIA [id number] [place] [address] [place] MCHC (RBC) [Mass/Vol] 32.2 g/dL Normal 30.5-36.0 [facility] Comment on above: Order Comment: Speci men Type: BLOOD SPECIMENOrdering Facility: [facility] Address: [address] [place] [address] Performed By: #### 5 8410-2 ####[facility] LABCLIA [id number] [place] [address] [place] MCV (RBC) [Entitic vol] 90.5 fL Normal 80.0-100.0 [facility] Comment on above: Order Comment: Speci men Type: BLOOD SPECIMENOrdering Facility: [facility] Address: [address] [place] [address] Performed By: #### 5 8410-2 ####[facility] LABIA [id number] [place] [address] [place] Nucleated RBC (Bld) [#/Vol] 10*3/uL Normal <0.01 [facility] Comment on above: Order Comment: Speci men Type: BLOOD SPECIMENOrdering Facility: [facility] Address: [address] [place] [address] Performed By: #### 5 8410-2 ####[facility] LABIA [id number] [place] [address] [place] Platelet mean volume (Bld) [Entitic vol] 10.8 fL Normal 9.0-12.7 [facility] Comment on above: Order Comment: Speci men Type: BLOOD SPECIMENOrdering Facility: [facility] Address: [address] [place] [address] Performed By: #### 5 8410-2 ####[facility] LABIA [id number] [place] [address] [place] Platelets (Bld) [#/Vol] 150 10*3/uL Normal 150-400 [facility] Comment on above: Order Comment: Speci men Type: BLOOD SPECIMENOrdering Facility: [facility] Address: [address] [place] [address] Performed By: #### 5 8410-2 ####[facility] LABCLIA [id number] [place] [address] [place] RBC (Bld) [#/Vol] 3.67 10*6/uL Low 3.90-5.20 [facility] Comment on above: Order Comment: Speci men Type: BLOOD SPECIMENOrdering Facility: [facility] Address: [address] [place] [address] Performed By: #### 5 8410-2 ####[facility] LABCLIA [id number] [address] [address] [place] WBC (Bld) [#/Vol] 5.57 10*3/uL Normal 3.70-11.00 [facility] Comment on above: Order Comment: Speci men Type: BLOOD SPECIMENOrdering Facility: [facility] Address: [address] [place] [address] Performed By: #### 5 8410-2 ####[facility] LABCLIA [id number] [place] [address] [place] CNDSon 09-23-2024 CNDS Normal [facility] Comprehensive metabolic 2000 panelon 09-23-2024 Albumin [Mass/Vol] 3.3 g/dL Low 3.9-4.9 [facility] Comment on above: Order Comment: Speci men Type: BLOOD SPECIMENOrdering Facility: [facility] Address: [address] [place] [address] Performed By: #### 1 9123-9, 53694-1, 2777-1 ####[facility] LABCLIA [id number] [place] [address] [place] ALP [Catalytic activity/Vol] 71 U/L Normal 34-123 [facility] Comment on above: Order Comment: Speci men Type: BLOOD SPECIMENOrdering Facility: [facility] Address: [address] [place] [address] Performed By: #### 1 9123-9, 77515-5, 2777-1 ####[facility] LABCLIA [id number] [place] [id number] [place] ALT [Catalytic activity/Vol] 25 U/L Normal 7-38 [facility] Comment on above: Order Comment: Speci men Type: BLOOD SPECIMENOrdering Facility: [facility] Address: [address] [place] [address] Performed By: #### 1 9123-9, 22654-4, 2777- ####[facility] LABCLIA [id number] [place] [address] [place] Anion gap [Moles/Vol] 8 mmol/L Normal 8-15 [facility] Comment on above: Order Comment: Speci men Type: BLOOD SPECIMENOrdering Facility: [facility] Address: [address] [place] [address] Performed By: #### 1 9123-9, 94427-9, 27702-15 ####[facility] LABCLIA [id number] [place] [address] [place] AST [Catalytic activity/Vol] 30 U/L Normal 13-35 [facility] Comment on above: Order Comment: Speci men Type: BLOOD SPECIMENOrdering Facility: [facility] Address: [address] [place] [address] Performed By: #### 1 9123-9, 45430-5, 27702-15 ####[facility] LABCLIA [id number] [place] [address] [place] Bilirubin [Mass/Vol] 0.5 mg/dL Normal 0.2-1.3 [facility] Comment on above: Order Comment: Speci men Type: BLOOD SPECIMENOrdering Facility: [facility] Address: [address] [place] [address] Performed By: #### 1 9123-9, 54646-5, 2777- ####[facility] LABCLIA [id number] [place] [address] [place] Calcium [Mass/Vol] 8.1 mg/dL Low 8.5-10.2 [facility] Comment on above: Order Comment: Speci men Type: BLOOD SPECIMENOrdering Facility: [facility] Address: [address] [place] [address] Performed By: #### 1 9123-9, 13077-9, 2777-1 ####[facility] LABCLIA [id number] [place] [address] [place] Chloride [Moles/Vol] 102 mmol/L Normal 98-107 [facility] Comment on above: Order Comment: Speci men Type: BLOOD SPECIMENOrdering Facility: [facility] Address: [address] [place] [address] Performed By: #### 1 9123-9, 79239-7, 2777-1 ####[facility] LABCLIA [id number] [place] [address] [place] CO2 [Moles/Vol] 27 mmol/L Normal 22-30 [facility] Comment on above: Order Comment: Speci men Type: BLOOD SPECIMENOrdering Facility: [facility] Address: [address] [place] [address] Performed By: #### 1 9123-9, 49855-4, 2777- ####[facility] LABIA [id number] [place] [address] [place] Creatinine [Mass/Vol] 0.81 mg/dL Normal 0.58-0.96 [facility] Comment on above: Order Comment: Speci men Type: BLOOD SPECIMENOrdering Facility: [facility] Address: [address] [place] [address] Performed By: #### 1 9123-9, 49754-4, 2777- ####[facility] LABIA [id number] [place] [address] [place] Creatinine and Glomerular filtration rate.predicted panel (S/P/Bld) 73 mL/min/1.73m??? Normal >=60 [facility] Comment on above: Order Comment: Speci men Type: BLOOD SPECIMENOrdering Facility: [facility] Address: [address] [place] [address] Result Comment: Brandy mated Glomerular Filtration Rate (eGFR) is calculated using the 2020 CKD-EPI creatinine equation. This equation utilizes serum creatinine, sex, and age as parameters. The creatinine assay has traceable calibration to isotope dilution-mass spectrometry. Refer to KDIGO guidelines for clinical interpretation. In patients with unstable renal function, e.g. those with acute kidney injury, the eGFR may not accurately reflect actual GFR. Performed By: #### 1 9123-9, 42194-8, 277- ####[facility] LABCLIA [id number] [place] [id number] [place] Glucose [Mass/Vol] 93 mg/dL Normal 74-99 [facility] Comment on above: Order Comment: Ramirez gamez Type: BLOOD SPECIMENOrdering Facility: [facility] Address: [address] [place] [address] Result Comment: The [place] Diabetes Association (ADA) provides guidance for cutoff values for fasting glucose and random glucose. The ADA defines fasting as no caloric intake for at least 8 hours. Fasting plasma glucose results between 100 to 125 mg/dL indicate increased risk for diabetes (prediabetes).Fasting plasma glucose results greater than or equal to 126 mg/dL meet the criteria for diagnosis of diabetes. In the absence of unequivocal hyperglycemia, results should be confirmed by repeat testing. In a patient with classic symptoms of hyperglycemia or hyperglycemic crisis, random plasma glucose results greater than or equal to 200 mg/dL meet the criteria for diagnosis of diabetes.Reference: Standards of Medical Care in Diabetes 2016, [place] [employer] Association. Diabetes Care. 2016.39(Suppl 1). Performed By: #### 1 9123-9, 34463-7, 2776-08 ####[facility] LABIA [id number] [place] [id number] [place] Potassium [Moles/Vol] 3.8 mmol/L Normal 3.7-5.1 [facility] Comment on above: Order Comment: Ramirez gamez Type: BLOOD SPECIMENOrdering Facility: [facility] Address: [address] [place] [address] Performed By: #### 1 9123-9, 07535-7, 27702-15 ####[facility] LABCLIA [id number] [address] [address] [place] Protein [Mass/Vol] 5.7 g/dL Low 6.3-8.0 [facility] Comment on above: Order Comment: Speci men Type: BLOOD SPECIMENOrdering Facility: [facility] Address: [address] [place] [address] Performed By: #### 1 9123-9, 41701-9, 27702-15 ####[facility] LABIA [id number] [place] [address] [place] Sodium [Moles/Vol] 137 mmol/L Normal 136-144 [facility] Comment on above: Order Comment: Speci men Type: BLOOD SPECIMENOrdering Facility: [facility] Address: [address] [place] [address] Performed By: #### 1 9123-9, 34926-1, 27702-15 ####[facility] LABIA [id number] [place] [address] [place] Urea nitrogen [Mass/Vol] 12 mg/dL Normal 7-21 [facility] Comment on above: Order Comment: Speci men Type: BLOOD SPECIMENOrdering Facility: [facility] Address: [address] [place] [address] Performed By: #### 1 9123-9, 68245-6, 27702-15 ####[facility] LABIA [id number] [place] [id number] [place] Magnesium SerPl-mCncon 09-23 Magnesium [Mass/Vol] 1.8 mg/dL Normal 1.7-2.3 [facility] Comment on above: Order Comment: Speci men Type: BLOOD SPECIMENOrdering Facility: [facility] Address: [address] [place] [address] Performed By: #### 1 9123-9, 20365-9, 2777- ####[facility] LABCLIA [id number] [place] [address] [place] Phosphate SerPl-mCncon 09-23 Phosphate [Mass/Vol] 1.7 mg/dL Low 2.7-4.8 [facility] Comment on above: Order Comment: Speci men Type: BLOOD SPECIMENOrdering Facility: [facility] Address: [address] [place] [address] Performed By: #### 1 9123-9, 07847-5, 2777-1 ####[facility] LABCLIA [id number] [place] [address] [place] THERAPY NTon 09-23-2024 THERAPY NT Normal [facility] ANES POSTPROC EVALon 025 ANES POSTPROC EVAL Normal [facility] ANES POSTPROC EVAL Normal [facility] CASE MANAGEMon 09-22-2024 CASE MANAGEM Normal [facility] CBC panel Auto (Bld)on 09-22 Erythrocyte distribution width (RBC) [Ratio] 13.7 % Normal 11.5-15.0 [facility] Comment on above: Order Comment: Speci men Type: BLOOD SPECIMENOrdering Facility: [facility] Address: [address] [place] [address] Performed By: #### 5 8410-2 ####[facility] LABIA [id number] [place] [address] [place] Hematocrit (Bld) [Volume fraction] 33.8 % Low 36.0-46.0 [facility] Comment on above: Order Comment: Speci men Type: BLOOD SPECIMENOrdering Facility: [facility] Address: [address] [place] [address] Performed By: #### 5 8410-2 ####[facility] LABCLIA [id number] [place] [address] [place] Hemoglobin (Bld) [Mass/Vol] 10.8 g/dL Low 11.5-15.5 [facility] Comment on above: Order Comment: Speci men Type: BLOOD SPECIMENOrdering Facility: [facility] Address: [address] [place] [address] Performed By: #### 5 8410-2 ####[facility] LABIA [id number] [place] [address] [place] MCH (RBC) [Entitic mass] 29.1 pg Normal 26.0-34.0 [facility] Comment on above: Order Comment: Speci men Type: BLOOD SPECIMENOrdering Facility: [facility] Address: [address] [place] [address] Performed By: #### 5 8410-2 ####[facility] [id number] [place] [address] [place] MCHC (RBC) [Mass/Vol] 32.0 g/dL Normal 30.5-36.0 [facility] Comment on above: Order Comment: Speci men Type: BLOOD SPECIMENOrdering Facility: [facility] Address: [address] [place] [address] Performed By: #### 5 8410-2 ####[facility] [id number] [place] [address] [place] MCV (RBC) [Entitic vol] 91.1 fL Normal 80.0-100.0 [facility] Comment on above: Order Comment: Speci men Type: BLOOD SPECIMENOrdering Facility: [facility] Address: [address] [place] [address] Performed By: #### 5 8410-2 ####[facility] [id number] [place] [address] [place] Nucleated RBC (Bld) [#/Vol] 10*3/uL Normal <0.01 [facility] Comment on above: Order Comment: Speci men Type: BLOOD SPECIMENOrdering Facility: [facility] Address: [address] [place], [place] [id number] Performed By: #### 5 8410-2 ####[facility] LABCLIA [id number] [place] [address] [place] Platelet mean volume (Bld) [Entitic vol] 10.6 fL Normal 9.0-12.7 [facility] Comment on above: Order Comment: Speci men Type: BLOOD SPECIMENOrdering Facility: [facility] Address: [address] [place] [address] Performed By: #### 5 8410-2 ####[facility] LABCLIA [id number] [place] [address] [place] Platelets (Bld) [#/Vol] 147 10*3/uL Low 150-400 [facility] Comment on above: Order Comment: Speci men Type: BLOOD SPECIMENOrdering Facility: [facility] Address: [address] [place] [address] Performed By: #### 5 8410-2 ####[facility] LABCLIA [id number] [place] [address] [place] RBC (Bld) [#/Vol] 3.71 10*6/uL Low 3.90-5.20 [facility] Comment on above: Order Comment: Speci men Type: BLOOD SPECIMENOrdering Facility: [facility] Address: [address] [place] [address] Performed By: #### 5 8410-2 ####[facility] LABCLIA [id number] [place] [id number] [place] WBC (Bld) [#/Vol] 4.72 10*3/uL Normal 3.70-11.00 [facility] Comment on above: Order Comment: Speci men Type: BLOOD SPECIMENOrdering Facility: [facility] Address: [address] [place] [address] Performed By: #### 5 8410-2 ####[facility] LABCLIA [id number] [place] [address] [place] Comprehensive metabolic 2000 panelon 09-22-2024 Albumin [Mass/Vol] 3.2 g/dL Low 3.9-4.9 [facility] Comment on above: Order Comment: Speci men Type: BLOOD SPECIMENOrdering Facility: [facility] Address: [address] [place] [address] Performed By: #### 1 9123-9, 63182-6, 2777- ####[facility] LABCLIA [id number] [place] [address] [place] ALP [Catalytic activity/Vol] 74 U/L Normal 34-123 [facility] Comment on above: Order Comment: Speci men Type: BLOOD SPECIMENOrdering Facility: [facility] Address: [address] [place] [address] Performed By: #### 1 9123-9, 41728-3, 2777- ####[facility] LABCLIA [id number] [place] [address] [place] ALT [Catalytic activity/Vol] 30 U/L Normal 7-38 [facility] Comment on above: Order Comment: Speci men Type: BLOOD SPECIMENOrdering Facility: [facility] Address: [address] [place] [address] Performed By: #### 1 9123-9, 45049-2, 2777- ####[facility] LABCLIA [id number] [place] [address] [place] Anion gap [Moles/Vol] 9 mmol/L Normal 8-15 [facility] Comment on above: Order Comment: Speci men Type: BLOOD SPECIMENOrdering Facility: [facility] Address: [address] [place] [address] Performed By: #### 1 9123-9, 22317-2, 2777-1 ####[facility]CLIA [id number] [place] [address] [place] AST [Catalytic activity/Vol] 45 U/L High 13-35 [facility] Comment on above: Order Comment: Speci men Type: BLOOD SPECIMENOrdering Facility: [facility] Address: [address] [place] [address] Performed By: #### 1 9123-9, 66758-4, 2777-1 ####[facility]CLIA [id number] [place] [address] [place] Bilirubin [Mass/Vol] 1.0 mg/dL Normal 0.2-1.3 [facility] Comment on above: Order Comment: Speci men Type: BLOOD SPECIMENOrdering Facility: [facility] Address: [address] [place] [address] Performed By: #### 1 9123-9, 33374-0, 277- ####[facility]CLIA [id number] [place] [address] [place] Calcium [Mass/Vol] 8.0 mg/dL Low 8.5-10.2 [facility] Comment on above: Order Comment: Speci men Type: BLOOD SPECIMENOrdering Facility: [facility] Address: [address] [place] [address] Performed By: #### 1 9123-9, 82479-0, 277- ####[facility]CLIA [id number] [place] [address] [place] Chloride [Moles/Vol] 102 mmol/L Normal 98-107 [facility] Comment on above: Order Comment: Speci men Type: BLOOD SPECIMENOrdering Facility: [facility] Address: [address] [place] [address] Performed By: #### 1 9123-9, 20656-8, 2777- ####[facility]CLIA [id number] [place] [address] [place] CO2 [Moles/Vol] 25 mmol/L Normal 22-30 [facility] Comment on above: Order Comment: Speci men Type: BLOOD SPECIMENOrdering Facility: [facility] Address: [address] [place] [address] Performed By: #### 1 9123-9, , 2776-08 ####[facility]CLIA [id number] [place] [address] [place] Creatinine [Mass/Vol] 0.82 mg/dL Normal 0.58-0.96 [facility] Comment on above: Order Comment: Speci men Type: BLOOD SPECIMENOrdering Facility: [facility] Address: [address] [place] [address] Performed By: #### 1 9123-9, , 2776-08 ####[facility]CLIA [id number] [place] [address] [place] Creatinine and Glomerular filtration rate.predicted panel (S/P/Bld) 72 mL/min/1.73m??? Normal >=60 [facility] Comment on above: Order Comment: Speci men Type: BLOOD SPECIMENOrdering Facility: [facility] Address: [address] [place] [address] Result Comment: Brandy mated Glomerular Filtration Rate (eGFR) is calculated using the 2020 CKD-EPI creatinine equation. This equation utilizes serum creatinine, sex, and age as parameters. The creatinine assay has traceable calibration to isotope dilution-mass spectrometry. Refer to KDIGO guidelines for clinical interpretation. In patients with unstable renal function, e.g. those with acute kidney injury, the eGFR may not accurately reflect actual GFR. Performed By: #### 1 9123-9, 79642-2, 2776-08 ####[facility]CLIA [id number] [place] [address] [place] Glucose [Mass/Vol] 75 mg/dL Normal 74-99 [facility] Comment on above: Order Comment: Speci men Type: BLOOD SPECIMENOrdering Facility: [facility] Address: [address] [place] [address] Result Comment: The [place] Diabetes Association (ADA) provides guidance for cutoff values for fasting glucose and random glucose. The ADA defines fasting as no caloric intake for at least 8 hours. Fasting plasma glucose results between 100 to 125 mg/dL indicate increased risk for diabetes (prediabetes).Fasting plasma glucose results greater than or equal to 126 mg/dL meet the criteria for diagnosis of diabetes. In the absence of unequivocal hyperglycemia, results should be confirmed by repeat testing. In a patient with classic symptoms of hyperglycemia or hyperglycemic crisis, random plasma glucose results greater than or equal to 200 mg/dL meet the criteria for diagnosis of diabetes.Reference: Standards of Medical Care in Diabetes 2016, [place] [employer]. Diabetes Care. 2016.39(Suppl 1). Performed By: #### 1 9123-9, 68949-0, 2777- ####[facility]CLIA [id number] [place] [address] [place] Potassium [Moles/Vol] 4.0 mmol/L Normal 3.7-5.1 [facility] Comment on above: Order Comment: Speci men Type: BLOOD SPECIMENOrdering Facility: [facility] Address: [address] [place] [address] Performed By: #### 1 9123-9, 17277-6, 27702-15 ####[facility]CLIA [id number] [place] [address] [place] Protein [Mass/Vol] 5.5 g/dL Low 6.3-8.0 [facility] Comment on above: Order Comment: Speci men Type: BLOOD SPECIMENOrdering Facility: [facility] Address: [address] [place] [address] Performed By: #### 1 9123-9, 77358-9, 27702-15 ####[facility]CLIA [id number] [place] [address] [place] Sodium [Moles/Vol] 136 mmol/L Normal 136-144 [facility] Comment on above: Order Comment: Speci men Type: BLOOD SPECIMENOrdering Facility: [facility] Address: [address] [place] [address] Performed By: #### 1 9123-9, 18987-5, 2777- ####[facility]CL[facility] [id number] [place] [address] [place] Urea nitrogen [Mass/Vol] 11 mg/dL Normal 7-21 [facility] Comment on above: Order Comment: Speci men Type: BLOOD SPECIMENOrdering Facility: [facility] Address: [address] [place] [address] Performed By: #### 1 9123-9, 71088-2, 2777- ####[facility]CLIA [id number] [place] [address] [place] Magnesium SerPl-mCncon 09-22 Magnesium [Mass/Vol] 2.1 mg/dL Normal 1.7-2.3 [facility] Comment on above: Order Comment: Speci men Type: BLOOD SPECIMENOrdering Facility: [facility] Address: [address] [place] [address] Performed By: #### 1 9123-9, 40280-7, 27702-15 ####[facility] LABIA [id number] [place] [address] [place] PT EDon 09-22-2024 PT ED Normal [facility] Phosphate SerPl-mCncon 09-22 Phosphate [Mass/Vol] 1.7 mg/dL Low 2.7-4.8 [facility] Comment on above: Order Comment: Speci men Type: BLOOD SPECIMENOrdering Facility: [facility] Address: [address] [place] [address] Performed By: #### 1 9123-9, 34705-1, 2777- ####[facility]CLIA [id number] [place] [address] [place] THERAPY NTon 09-22-2024 THERAPY NT Normal [facility] Basic metabolic 2000 panelon 09-21-2024 Anion gap [Moles/Vol] 12 mmol/L Normal 8-15 [facility] Comment on above: Order Comment: Speci men Type: BLOOD SPECIMENOrdering Facility: [facility] Address: [address] [place] [address] Performed By: #### 1 9123-9, 2777-1, 19517-6, 45332-0 ####[facility]CLIA [id number] [place] [address] [place] Calcium [Mass/Vol] 8.0 mg/dL Low 8.5-10.2 [facility] Comment on above: Order Comment: Speci men Type: BLOOD SPECIMENOrdering Facility: [facility] Address: [address] [place] [address] Performed By: #### 1 9123-9, 2777-1, 91486-5, 51045-4 ####[facility]CLIA [id number] [place] [address] [place] Chloride [Moles/Vol] 102 mmol/L Normal 98-107 [facility] Comment on above: Order Comment: Speci men Type: BLOOD SPECIMENOrdering Facility: [facility] Address: [address] [place] [address] Performed By: #### 1 9123-9, 2777-1, 06058-2, 85022-3 ####[facility]CLIA [id number] [place] [address] [place] CO2 [Moles/Vol] 24 mmol/L Normal 22-30 [facility] Comment on above: Order Comment: Speci men Type: BLOOD SPECIMENOrdering Facility: [facility] Address: [address] [place] [address] Performed By: #### 1 9123-9, 2777-1, 57999-6, 12010-5 ####[facility]CLIA [id number] [place] [address] [place] Creatinine [Mass/Vol] 0.78 mg/dL Normal 0.58-0.96 [facility] Comment on above: Order Comment: Ramirez gamez Type: BLOOD SPECIMENOrdering Facility: [facility] Address: [address] [place] [address] Performed By: #### 1 9123-9, 2777-1, 08046-4, 93037-9 ####[facility]CLIA [id number] [address] [place] Creatinine and Glomerular filtration rate.predicted panel (S/P/Bld) 76 mL/min/1.73m??? Normal >=60 [facility] Comment on above: Order Comment: Ramirez gamez Type: BLOOD SPECIMENOrdering Facility: [facility] Address: [address] [place] [address] Result Comment: Brandy mated Glomerular Filtration Rate (eGFR) is calculated using the 2020 CKD-EPI creatinine equation. This equation utilizes serum creatinine, sex, and age as parameters. The creatinine assay has traceable calibration to isotope dilution-mass spectrometry. Refer to KDIGO guidelines for clinical interpretation. In patients with unstable renal function, e.g. those with acute kidney injury, the eGFR may not accurately reflect actual GFR. Performed By: #### 1 9123-9, 2777-1, 19229-6, 02034-0 ####[facility] LABCLIA [id number] [place] [address] [place] Glucose [Mass/Vol] 64 mg/dL Low 74-99 [facility] Comment on above: Order Comment: Ramirez gamez Type: BLOOD SPECIMENOrdering Facility: [facility] Address: [address] [place] [address] Result Comment: The [place] Diabetes Association (ADA) provides guidance for cutoff values for fasting glucose and random glucose. The ADA defines fasting as no caloric intake for at least 8 hours. Fasting plasma glucose results between 100 to 125 mg/dL indicate increased risk for diabetes (prediabetes).Fasting plasma glucose results greater than or equal to 126 mg/dL meet the criteria for diagnosis of diabetes. In the absence of unequivocal hyperglycemia, results should be confirmed by repeat testing. In a patient with classic symptoms of hyperglycemia or hyperglycemic crisis, random plasma glucose results greater than or equal to 200 mg/dL meet the criteria for diagnosis of diabetes.Reference: Standards of Medical Care in Diabetes 2016, [place] [employer]. Diabetes Care. 2016.39(Suppl 1). Performed By: #### 1 9123-9, 2777-1, 05600-5, 57579-4 ####[facility] LABCLIA [id number] [place] [address] [place] Potassium [Moles/Vol] 4.2 mmol/L Normal 3.7-5.1 [facility] Comment on above: Order Comment: Speci men Type: BLOOD SPECIMENOrdering Facility: [facility] Address: [address] [place] [address] Performed By: #### 1 9123-9, 2777-1, 41695-1, 10881-1 ####[facility] LABCLIA [id number] [place] [address] [place] Sodium [Moles/Vol] 138 mmol/L Normal 136-144 [facility] Comment on above: Order Comment: Speci men Type: BLOOD SPECIMENOrdering Facility: [facility] Address: [address] [place] [address] Performed By: #### 1 9123-9, 2777-1, 57350-6, 34631-7 ####[facility]CLIA [id number] [place] [address] [place] Urea nitrogen [Mass/Vol] 15 mg/dL Normal 7-21 [facility] Comment on above: Order Comment: Speci men Type: BLOOD SPECIMENOrdering Facility: [facility] Address: [address] [place] [address] Performed By: #### 1 9123-9, 2777-1, 40550-0, 99355-3 ####[facility] LABCLIA [id number] [place] [address] [place] CASE MANAGEMon 09-21-2024 CASE MANAGEM Normal [facility] CASE MGT INIT ASSESon 2024 CASE MGT INIT ASSES Normal [facility] CBC W Auto Differential pane l (Bld)on 09-21-2024 Basophils (Bld) [#/Vol] 10*3/uL Normal <0.11 [facility] Comment on above: Order Comment: Speci men Type: BLOOD SPECIMENOrdering Facility: [facility] Address: [address] [place] [address] Performed By: #### 5 7021-8 ####[facility]CLIA [id number] [place] [address] [place] Basophils/100 WBC (Bld) 0.3 % Normal [facility] Comment on above: Order Comment: Speci men Type: BLOOD SPECIMENOrdering Facility: [facility] Address: [address] [place] [address] Performed By: #### 5 7021-8 ####[facility]CLIA [id number] [place] [address] [place] Differential cell count method Nom (Bld) Auto Normal [facility] Comment on above: Order Comment: Speci men Type: BLOOD SPECIMENOrdering Facility: [facility] Address: [address] [place] [address] Performed By: #### 5 7021-8 ####[facility] LABCLIA [id number] [place] [address] [place] Eosinophils (Bld) [#/Vol] 10*3/uL Normal <0.46 [facility] Comment on above: Order Comment: Speci men Type: BLOOD SPECIMENOrdering Facility: [facility] Address: [address] [place] [address] Performed By: #### 5 7021-8 ####[facility]CLIA [id number] [place] [address] [place] Eosinophils/100 WBC (Bld) 0.2 % Normal [facility] Comment on above: Order Comment: Speci men Type: BLOOD SPECIMENOrdering Facility: [facility] Address: [address] [place] [address] Performed By: #### 5 7021-8 ####[facility] LABCLIA [id number] [place] [address] [place] Erythrocyte distribution width (RBC) [Ratio] 13.7 % Normal 11.5-15.0 [facility] Comment on above: Order Comment: Speci men Type: BLOOD SPECIMENOrdering Facility: [facility] Address: [address] [place] [address] Performed By: #### 5 7021-8 ####[facility]CLIA [id number] [place] [address] [place] Hematocrit (Bld) [Volume fraction] 35.7 % Low 36.0-46.0 [facility] Comment on above: Order Comment: Speci men Type: BLOOD SPECIMENOrdering Facility: [facility] Address: [address] [place] [address] Performed By: #### 5 7021-8 ####[facility] LABIA [id number] [place] [address] [place] Hemoglobin (Bld) [Mass/Vol] 11.2 g/dL Low 11.5-15.5 [facility] Comment on above: Order Comment: Speci men Type: BLOOD SPECIMENOrdering Facility: [facility] Address: [address] [place] [address] Performed By: #### 5 7021-8 ####[facility]CLIA [id number] [place] [address] [place] Immature granulocytes (Bld) [#/Vol] 10*3/uL Normal <0.10 [facility] Comment on above: Order Comment: Speci men Type: BLOOD SPECIMENOrdering Facility: [facility] Address: [address] [place] [address] Performed By: #### 5 7021-8 ####[facility] LABCLIA [id number] [place] [address] [place] Immature granulocytes/100 WBC (Bld) 0.3 % Normal [facility] Comment on above: Order Comment: Speci men Type: BLOOD SPECIMENOrdering Facility: [facility] Address: [address] [place] [address] Performed By: #### 5 7021-8 ####[facility] LABCLIA [id number] [place] [address] [place] Lymphocytes (Bld) [#/Vol] 1.31 10*3/uL Normal 1.00-4.00 [facility] Comment on above: Order Comment: Speci men Type: BLOOD SPECIMENOrdering Facility: [facility] Address: [address] [place] [address] Performed By: #### 5 7021-8 ####[facility] LABCLIA [id number] [place] [address] [place] Lymphocytes/100 WBC (Bld) 20.1 % Normal [facility] Comment on above: Order Comment: Speci men Type: BLOOD SPECIMENOrdering Facility: [facility] Address: [address] [place] [address] Performed By: #### 5 7021-8 ####[facility] LABCLIA [id number] [place] [address] [place] MCH (RBC) [Entitic mass] 28.9 pg Normal 26.0-34.0 [facility] Comment on above: Order Comment: Speci men Type: BLOOD SPECIMENOrdering Facility: [facility] Address: [address] [place] [address] Performed By: #### 5 7021-8 ####[facility] LABCLIA [id number] [place] [address] [place] MCHC (RBC) [Mass/Vol] 31.4 g/dL Normal 30.5-36.0 [facility] Comment on above: Order Comment: Speci men Type: BLOOD SPECIMENOrdering Facility: [facility] Address: [address] [place] [address] Performed By: #### 5 7021-8 ####[facility]CLIA [id number] [place] [address] [place] MCV (RBC) [Entitic vol] 92.2 fL Normal 80.0-100.0 [facility] Comment on above: Order Comment: Speci men Type: BLOOD SPECIMENOrdering Facility: [facility] Address: [address] [place] [address] Performed By: #### 5 7021-8 ####[facility] LABCLIA [id number] [place] [address] [place] Monocytes (Bld) [#/Vol] 0.54 10*3/uL Normal <0.87 [facility] Comment on above: Order Comment: Speci men Type: BLOOD SPECIMENOrdering Facility: [facility] Address: [address] [place] [address] Performed By: #### 5 7021-8 ####[facility] LABCLIA [id number] [place] [address] [place] Monocytes/100 WBC (Bld) 8.3 % Normal [facility] Comment on above: Order Comment: Speci men Type: BLOOD SPECIMENOrdering Facility: [facility] Address: [address] [place] [address] Performed By: #### 5 7021-8 ####[facility] LABCLIA [id number] [place] [address] [place] Neutrophils (Bld) [#/Vol] 4.63 10*3/uL Normal 1.45-7.50 [facility] Comment on above: Order Comment: Speci men Type: BLOOD SPECIMENOrdering Facility: [facility] Address: [address] [place] [address] Performed By: #### 5 7021-8 ####[facility] LABCLIA [id number] [place] [address] [place] Neutrophils/100 WBC (Bld) 70.8 % Normal [facility] Comment on above: Order Comment: Speci men Type: BLOOD SPECIMENOrdering Facility: [facility] Address: [address] [place] [address] Performed By: #### 5 7021-8 ####[facility]CLIA [id number] [place] [address] [place] Nucleated RBC (Bld) [#/Vol] 10*3/uL Normal <0.01 [facility] Comment on above: Order Comment: Speci men Type: BLOOD SPECIMENOrdering Facility: [facility] Address: [address] [place] [address] Performed By: #### 5 7021-8 ####[facility] LABIA [id number] [place] [address] [place] Nucleated RBC/100 WBC (Bld) [Ratio] 0.0 /100 WBC Normal [facility] Comment on above: Order Comment: Speci men Type: BLOOD SPECIMENOrdering Facility: [facility] Address: [address] [place] [address] Performed By: #### 5 7021-8 ####[facility] LABCLIA [id number] [place] [address] [place] Platelet mean volume (Bld) [Entitic vol] 10.7 fL Normal 9.0-12.7 [facility] Comment on above: Order Comment: Speci men Type: BLOOD SPECIMENOrdering Facility: [facility] Address: [address] [place] [address] Performed By: #### 5 7021-8 ####[facility]CLIA [id number] [place] [address] [place] Platelets (Bld) [#/Vol] 158 10*3/uL Normal 150-400 [facility] Comment on above: Order Comment: Speci men Type: BLOOD SPECIMENOrdering Facility: [facility] Address: [address] [place] [address] Performed By: #### 5 7021-8 ####[facility] LABCLIA [id number] [place] [address] [place] RBC (Bld) [#/Vol] 3.87 10*6/uL Low 3.90-5.20 [facility] Comment on above: Order Comment: Speci men Type: BLOOD SPECIMENOrdering Facility: [facility] Address: [address] [place] [address] Performed By: #### 5 7021-8 ####[facility]CLIA [id number] [place] [address] [place] [facility] WBC (Bld) [#/Vol] 6.53 10*3/uL Normal 3.70-11.00 [facility] Comment on above: Order Comment: Speci men Type: BLOOD SPECIMENOrdering Facility: [facility] Address: [address] [place] [address] Performed By: #### 5 7021-8 ####[facility] LABIA [id number] [place] [address] [place] Hepatic function 2000 panelo n 09-21-2024 Albumin [Mass/Vol] 3.4 g/dL Low 3.9-4.9 [facility] Comment on above: Order Comment: Speci men Type: BLOOD SPECIMENOrdering Facility: [facility] Address: [address] [place] [address] Performed By: #### 1 9123-9, 2777-1, 39256-7, 97771-9 ####[facility] LABCLIA [id number] [place] [address] [place] ALP [Catalytic activity/Vol] 65 U/L Normal 34-123 [facility] Comment on above: Order Comment: Speci men Type: BLOOD SPECIMENOrdering Facility: [facility] Address: [address] [place] [address] Performed By: #### 1 9123-9, 2777-1, 83702-4, 72835-2 ####[facility] LABIA [id number] [place] [address] [place] ALT [Catalytic activity/Vol] 30 U/L Normal 7-38 [facility] Comment on above: Order Comment: Speci men Type: BLOOD SPECIMENOrdering Facility: [facility] Address: [address] [place] [address] Performed By: #### 1 9123-9, 2777-1, 25524-4, 37587-0 ####[facility] LABIA [id number] [place] [address] [place] AST [Catalytic activity/Vol] 52 U/L High 13-35 [facility] Comment on above: Order Comment: Speci men Type: BLOOD SPECIMENOrdering Facility: [facility] Address: [address] [place] [address] Performed By: #### 1 9123-9, 2777-1, 96911-4, 81403-7 ####[facility] LABIA [id number] [place] [address] [place] Bilirubin [Mass/Vol] 0.9 mg/dL Normal 0.2-1.3 [facility] Comment on above: Order Comment: Speci men Type: BLOOD SPECIMENOrdering Facility: [facility] Address: [address] [place] [address] Performed By: #### 1 9123-9, 2777-1, 94442-0, 20236-8 ####[facility] LABIA [id number] [place] [address] [place] Bilirubin.conjugate d [Mass/Vol] 0.3 mg/dL High <0.3 [facility] Comment on above: Order Comment: Speci men Type: BLOOD SPECIMENOrdering Facility: [facility] Address: [address] [place] [address] Performed By: #### 1 9123-9, 2777-1, 40272-8, 93894-8 ####[facility] [id number] [place] [address] [place] Protein [Mass/Vol] 5.8 g/dL Low 6.3-8.0 [facility] Comment on above: Order Comment: Speci men Type: BLOOD SPECIMENOrdering Facility: [facility] Address: [address] [place] [address] Performed By: #### 1 9123-9, 2777-1, 37994-6, 64397-2 ####[facility] [id number] [place] [address] [place] Magnesium SerPl-mCncon 09-21 Magnesium [Mass/Vol] 1.7 mg/dL Normal 1.7-2.3 [facility] Comment on above: Order Comment: Speci men Type: BLOOD SPECIMENOrdering Facility: [facility] Address: [address] [place] [address] Performed By: #### 1 9123-9, 2777-1, 13126-6, 19240-9 ####[facility] [facility] [id number] [place] [address] [place] Phosphate SerPl-mCncon 09-21 Phosphate [Mass/Vol] 2.7 mg/dL Normal 2.7-4.8 [facility] Comment on above: Order Comment: Speci men Type: BLOOD SPECIMENOrdering Facility: [facility] Address: [address] [place] [address] Performed By: #### 1 9123-9, 2777-1, 10203-1, 36674-6 ####[facility] LABIA [id number] [place] [address] [place] THERAPY NTon 09-21-2024 THERAPY NT Normal [facility] ANES PRE-OPon 09-20-2024 ANES PRE-OP Normal [facility] BRIEF OP NOTon 09-20-2024 BRIEF OP NOT Normal [facility] CBC panel Auto (Bld)on 09-20 Erythrocyte distribution width (RBC) [Ratio] 14.1 % Normal 11.5-15.0 [facility] Comment on above: Order Comment: Speci men Type: BLOOD SPECIMENOrdering Facility: [facility] Address: [address] [place] [address] Performed By: #### 5 8410-2 ####[facility] [id number] [place] [address] [place] Hematocrit (Bld) [Volume fraction] 35.4 % Low 36.0-46.0 [facility] Comment on above: Order Comment: Speci men Type: BLOOD SPECIMENOrdering Facility: [facility] Address: [address] [place] [address] Performed By: #### 5 8410-2 ####[facility] [id number] [place] [address] [place] Hemoglobin (Bld) [Mass/Vol] 11.1 g/dL Low 11.5-15.5 [facility] Comment on above: Order Comment: Speci men Type: BLOOD SPECIMENOrdering Facility: [facility] Address: [address] [place] [address] Performed By: #### 5 8410-2 ####[facility] [id number] [place] [address] [place] MCH (RBC) [Entitic mass] 28.5 pg Normal 26.0-34.0 [facility] Comment on above: Order Comment: Speci men Type: BLOOD SPECIMENOrdering Facility: [facility] Address: [address] [place] [address] Performed By: #### 5 8410-2 ####[facility] LABCLIA [id number] [place] [address] [place] MCHC (RBC) [Mass/Vol] 31.4 g/dL Normal 30.5-36.0 [facility] Comment on above: Order Comment: Speci men Type: BLOOD SPECIMENOrdering Facility: [facility] Address: [address] [place] [address] Performed By: #### 5 8410-2 ####[facility] LABIA [id number] [place] [address] [place] MCV (RBC) [Entitic vol] 90.8 fL Normal 80.0-100.0 [facility] Comment on above: Order Comment: Speci men Type: BLOOD SPECIMENOrdering Facility: [facility] Address: [address] [place] [address] Performed By: #### 5 8410-2 ####[facility] LABIA [id number] [place] [address] [place] Nucleated RBC (Bld) [#/Vol] 10*3/uL Normal <0.01 [facility] Comment on above: Order Comment: Speci men Type: BLOOD SPECIMENOrdering Facility: [facility] Address: [address] [place] [address] Performed By: #### 5 8410-2 ####[facility] LABCLIA [id number] [place] [address] [place] Platelet mean volume (Bld) [Entitic vol] 10.0 fL Normal 9.0-12.7 [facility] Comment on above: Order Comment: Speci men Type: BLOOD SPECIMENOrdering Facility: [facility] Address: [address] [place] [address] Performed By: #### 5 8410-2 ####[facility] LABCLIA [id number] [place] [address] [place] Platelets (Bld) [#/Vol] 137 10*3/uL Low 150-400 [facility] Comment on above: Order Comment: Speci men Type: BLOOD SPECIMENOrdering Facility: [facility] Address: [address] [place] [address] Result Comment: Resu lts checked and verified.No clot detected. Performed By: #### 5 8410-2 ####[facility] LABCLIA [id number] [place] [address] [place] RBC (Bld) [#/Vol] 3.90 10*6/uL Normal 3.90-5.20 [facility] Comment on above: Order Comment: Speci men Type: BLOOD SPECIMENOrdering Facility: [facility] Address: [address] [place] [address] Performed By: #### 5 8410-2 ####[facility] LABCLIA [id number] [place] [address] [place] WBC (Bld) [#/Vol] 7.72 10*3/uL Normal 3.70-11.00 [facility] Comment on above: Order Comment: Speci men Type: BLOOD SPECIMENOrdering Facility: [facility] Address: [address] [place] [address] Performed By: #### 5 8410-2 ####[facility] LABIA [id number] [place] [address] [place] OPERATIVE NOon 09-20-2024 OPERATIVE NO Normal [facility] SURGICAL PATHOLOGYon 025 CASE REPORT Normal [facility] Comment on above: Order Comment: Speci men Type: TISSUE SPECIMENOrdering Facility: [facility] Address: [address] [place] [address] Result Comment: Surg ical Pathology Report Case: [id number] Provider: Anila De Paz MD Collected: 09/20/2024 11:38 AMOrdering Location: Admitting Received: 09/20/2024 02:49 PMPathologist: Susan Ku MDSpecimens: A) - Hernia Sac B) - Gallbladder Performed By: #### S ####[facility] LABCLIA [id number] [address] [place] CLINICAL HISTORY Normal [facility] Comment on above: Order Comment: Speci men Type: TISSUE SPECIMENOrdering Facility: [facility] Address: [address] [place] [address] Result Comment: Pre- op diagnosis:Hiatal hernia [K44.9]Epigastric pain [R10.13]Nausea and vomiting, unspecified vomiting type [R11.2]Pre-op exam [Z01.818] Performed By: #### S ####[facility] LABCLIA [id number] [address] OF [facility] FINAL DIAGNOSIS Normal [facility] Comment on above: Order Comment: Speci men Type: TISSUE SPECIMENOrdering Facility: [facility] Address: [address] [place] [address] Result Comment: A. H ernia sac, resection:- Benign fibroadipose tissue.B. Gallbladder, cholecystectomy:- Mild chronic cholecystitis. Performed By: #### S ####[facility] LABCLIA [id number] [address] OF [facility] FINAL PERFORMING LAB Normal [facility] Comment on above: Order Comment: Speci men Type: TISSUE SPECIMENOrdering Facility: [facility] Address: [address] [place] [address] Result Comment: Diag nostic interpretation performed at: [facility], [address] [place] [address] CLIA# [id number] Director: Rosales Quintana MD Performed By: #### S ####[facility] LABCLIA [id number] [place] [address] [place] GROSS DESCRIPTION A. Hernia Sac Normal [facility] Comment on above: Order Comment: Speci men Type: TISSUE SPECIMENOrdering Facility: [facility] Address: [address] [place] [address] Result Comment: Rece ived in formalin, labeled hernia sac, is a zapata-pink, irregular fatty and fibromembranous soft tissue fragment measuring 3.6 x 1.5 x 0.4 cm. The specimen is sectioned to reveal unremarkable cut surfaces with no areas of induration, nodularity, hemorrhage or necrosis identified. The specimen is submitted entirely in A1.B. GallbladderReceived in formalin labeled gallbladder is a 13 x 2.5 x 1.5 cm cholecystectomy specimen. The serosal surface is pink-zapata bianchi, smooth and glistening with the exception of the cauterized hepatic bed. Opening of the gallbladder reveals green-yellow, viscous bile. No calculi are present. The gallbladder mucosa is green-zapata and velvety with an average wall thickness of 0.2 cm. No polyps or mass lesions are identified. The cystic duct margin (en face) and motor vehicle field representative sections of the gallbladder wall are submitted in B1.KSZ September 20, 2024 3:38 PMGross examination performed at [facility], [address] [place] [address] Performed By: #### S ####[facility] LABCLIA [id number] [place] [address] [place] Chest without Contraston Chest without Contrast [facility] [address] [place] [address] [id number] Chest without Contrast MR#: [id number] Acct: [id number] Name: LAUREN ALCARAZ Rep #: [id number] : 1940 F 84 From: Gunnar Carrero MD PCP: Dr. Chema Perry MD Status: REG ER Study: Chest without Contrast Date of Exam: 09/18/24 Exam# [id number] Ordering Dr: Susan Emery DO PROCEDURE: CHEST WITHOUT CONTRAST REASON FOR EXAM: Pain TECHNIQUE: Chest CT without contrast. COMPARISON: 2021. FINDINGS: Hardware: None. Lymph nodes: No mediastinal hilar or axillary lymphadenopathy. Heart and Vasculature: Normal heart size. No pericardial effusion. Thoracic aorta and pulmonary arteries have normal contours; noncontrast technique limits evaluation. Coronary Artery Calcifications: Prominent Lungs and Airways: Streaky airspace opacities with peribronchial thickening particularly affecting the lingula. No large lobar consolidation. No pneumothorax. Additional peribronchial thickening involving the right lower lobe. Pleura: No pleural effusion. No pneumothorax. Upper Abdomen: Large hiatal hernia Bones: Vertebroplasty changes partially visualized. Stable compression deformity in the midthoracic spine unchanged from 2021 CT/Chest without Contrast IMPRESSION: Improved airspace aeration compared to 202, with persistent streaky airspace opacities in the lingula and right lower lobe with associated peribronchial thickening. Chronic processes are favored, however, acute infectious disease can not be definitively excluded. One or more dose reduction techniques were used (e.g., Automated exposure control, adjustment of the mA and/or kV according to patient size, use of iterative reconstruction technique). Reading Location: [facility] CC: Dr. Susan Emery DO; Dr. 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 Chema Perry MD Status:DEP ER Location: ED HPI HPI - Fall History of Present Illness Chief Complaint: Fall Informant: patient and spouse/S.O. Narrative Narrative: 84-year-old female presenting to the emergency room with a chief complaint of right rib pain. Patient states that yesterday she went to go use the bathroom lost her balance fell into these sink cabinet injuring her right mid ribs. She states that she is continued to hurt since and it hurt worse this morning. She did not sleep much last night. She chronically takes tramadol through pain management for her low back. She has been holding her anticoagulant apixaban as she is supposed to have surgery Friday for hiatal hernia. She denies any cough or shortness of breath. Pain is worse with movement. [facility] Medical History Open wound of right lower extremity Contusion of right foot Kyphoscoliosis deformity of spine Bee sting Lumbar contusion Contusion of thoracic wall Pain of left lower extremity Contact with and (suspected) exposure to other viral communicable diseases Contusion of left wrist Left elbow contusion Contusion of left shoulder Scalp contusion Injury of left elbow Injury of left shoulder Presence of stent in coronary artery ( 1989) Atherosclerotic heart disease of [place] coronary artery without angina pectoris Essential hypertension Influenza A Health care maintenance Falls frequently Cancer Depression Dementia Walker as ambulation aid Arthritis Bladder disease Low iron DVT (deep venous thrombosis) High cholesterol Restless legs Back pain TIA (transient ischemic attack) Seizures Difficulty swallowing Gastric reflux Non-smoker Asthma Shortness of breath on exertion Hx of echocardiogram History of stress test Hypertension Cardiology follow-up encounter History of heart attack Hypertension aquired autoimmune encephalopathy h/o back surgery Heart disease Dementia Partial complex seizures Home Medications ???Medication ???Instructions ???Recorded ???Last Taken ???Type L.acidophil-L.casei-B.bifid -B.longum-FOS 1 cap PO DAILY Supplement 09/02/21 10/05/21 History 2 billion cell-50 mg capsule (Probiotic Blend) aspirin 81 mg tablet,delayed 81 mg PO DAILY 01/10/22 Unknown Hi story release (Adult Aspirin Regimen) d-mannose 500 mg capsule 500 mg PO DAILY 06/07/22 Unknown H istory famotidine 10 mg tablet 10 mg PO BID 06/07/22 Unknown Hist ory multivitamin 1 tab PO DAILY 06/07/22 Unknown Hi story mirabegron 50 mg tablet,extended 50 mg PO QHS Check with primary Unknown History release 24 hr (Myrbetriq) doctor albuterol sulfate 2.5 mg/3 mL 2.5 mg (3 mL) inhalation Q6H PRN 0 04/07/23 Unknown Rx (0.083 %) solution for nebulization Sob /Or Wheezing #180 mL syringes BD ECLIPSE 04/11/23 Unknown History latanoprost 0.005 % eye drops 1 drp ophthalmic (eye) DAILY 08/13 Unknown History (Xalatan) furosemide 20 mg tablet 10 mg PO DAILY PRN edema 10/08/23 Unknown History donepezil 5 mg tablet (Aricept) 10 mg (2 x 5 mg) PO DAILY #90 tabs 11/12/23 Unknown Rx nitroglycerin 0.4 mg sublingual 0.4 mg sublingual Q5-15M PRN chest 11/12/23 Unknown Rx tablet pain #25 tabs denosumab 60 mg/mL subcutaneous 60 mg subcut [id number] #1 mL Unknown Rx syringe (Prolia) BD Sry/needle eclips See Rx Instructions IM .COMPLEX Unknown Rx #12 ea azelastine 137 mcg (0.1 %) nasal 2 spray intranasal 03/16/24 Unknow n History spray cetirizine 10 mg capsule (Zyrtec) 10 mg PO DAILY PRN allergy sympto ms 03/16/24 Unknown History fluticasone propionate 50 1 spray intranasal DAILY 03/16/24 Unknown History mcg/actuation nasal spray,suspension (Allergy Relief (fluticasone)) cyanocobalamin (vitamin B-12) 1,000 mcg IM QMONTH #10 mL 4 Unknown Rx 1,000 mcg/mL injection solution PEP device #1 ea 04/06/24 Unknown Rx apixaban 5 mg tablet (Eliquis) 5 mg PO BID #180 tabs 06/08/24 Unk nown Rx atorvastatin 40 mg tablet See Rx Instructions .Route 4 Unknown Rx .COMPLEX #90 tabs donepezil 10 mg tablet 10 mg PO DAILY #90 tabs 06/08/24 U nknown Rx lacosamide 100 mg tablet (Vimpat) 100 mg PO BID #180 tabs 06/08/24 Unknown Rx levothyroxine 50 mcg tablet 50 mcg PO DAILY Thyroid #90 tabs 1 Unknown Rx memantine 10 mg tablet 10 mg PO BID Alzheimer's #180 tabs 06/08/24 Unknown Rx pramipexole 0.5 mg tablet 0.5 mg PO BID #180 tabs 06/08/24 U nknown Rx vortiox (more content not included)... Normal [facility] CBC W Auto Differential pane l (Bld)on 09-14-2024 Basophils (Bld) [#/Vol] 10*3/uL Normal <0.11 [facility] Comment on above: Order Comment: Speci men Type: BLOOD SPECIMENOrdering Facility: [facility] Address: [address] [place] [address] Performed By: #### 5 7021-8 ####[facility]CL[facility] [id number] [place] [address] [place] Basophils/100 WBC (Bld) 0.2 % Normal [facility] Comment on above: Order Comment: Speci men Type: BLOOD SPECIMENOrdering Facility: [facility] Address: [address] [place] [address] Performed By: #### 5 7021-8 ####[facility]ARDA [id number] [place] [address] [place] Differential cell count method Nom (Bld) Auto Normal [facility] Comment on above: Order Comment: Speci men Type: BLOOD SPECIMENOrdering Facility: [facility] Address: [address] [place] [address] Performed By: #### 5 7021-8 ####[facility] [id number] [place] [address] [place] Eosinophils (Bld) [#/Vol] 0.10 10*3/uL Normal <0.46 [facility] Comment on above: Order Comment: Speci men Type: BLOOD SPECIMENOrdering Facility: [facility] Address: [address] [place] [address] Performed By: #### 5 7021-8 ####[facility]ENTERLIA [id number] [place] [address] [place] Eosinophils/100 WBC (Bld) 1.8 % Normal [facility] Comment on above: Order Comment: Speci men Type: BLOOD SPECIMENOrdering Facility: [facility] Address: [address] [place] [address] Performed By: #### 5 7021-8 ####[place] [facility] MARYNCLUZMARIA [id number] [place] [address] [place] Erythrocyte distribution width (RBC) [Ratio] 14.1 % Normal 11.5-15.0 [facility] Comment on above: Order Comment: Speci men Type: BLOOD SPECIMENOrdering Facility: [facility] Address: [address] [place] [address] Performed By: #### 5 7021-8 ####[facility] MARYNCLI [id number] [place] [address] [place] Hematocrit (Bld) [Volume fraction] 34.6 % Low 36.0-46.0 [facility] Comment on above: Order Comment: Speci men Type: BLOOD SPECIMENOrdering Facility: [facility] Address: [address] [place] [address] Performed By: #### 5 7021-8 ####[facility] [id number] [place] [address] [place] Hemoglobin (Bld) [Mass/Vol] 11.2 g/dL Low 11.5-15.5 [facility] Comment on above: Order Comment: Speci men Type: BLOOD SPECIMENOrdering Facility: [facility] Address: [address] [place] [address] Performed By: #### 5 7021-8 ####[facility] MARYNCA [id number] [place] [address] [place] Immature granulocytes (Bld) [#/Vol] 10*3/uL Normal <0.10 [facility] Comment on above: Order Comment: Speci men Type: BLOOD SPECIMENOrdering Facility: [facility] Address: [address] [place] [address] Performed By: #### 5 7021-8 ####[facility] MARYNCLIA [id number] [place] [address] [place] [facility] Immature granulocytes/100 WBC (Bld) 0.2 % Normal [facility] Comment on above: Order Comment: Speci men Type: BLOOD SPECIMENOrdering Facility: [facility] Address: [address] [place] [address] Performed By: #### 5 7021-8 ####[facility] MARYNCLIA [id number] [place] [address] [place] Lymphocytes (Bld) [#/Vol] 1.92 10*3/uL Normal 1.00-4.00 [facility] Comment on above: Order Comment: Speci men Type: BLOOD SPECIMENOrdering Facility: [facility] Address: [address] [place] [address] Performed By: #### 5 7021-8 ####[facility] MARYNCLIA [id number] [place] [address] [place] Lymphocytes/100 WBC (Bld) 35.0 % Normal [facility] Comment on above: Order Comment: Speci men Type: BLOOD SPECIMENOrdering Facility: [facility] Address: [address] [place] [address] Performed By: #### 5 7021-8 ####[facility] MARYNCLIA [id number] [place] [address] [place] MCH (RBC) [Entitic mass] 29.4 pg Normal 26.0-34.0 [facility] Comment on above: Order Comment: Speci men Type: BLOOD SPECIMENOrdering Facility: [facility] Address: [address] [place] [address] Performed By: #### 5 7021-8 ####[facility] MARYNCLI [id number] [place] [address] [place] MCHC (RBC) [Mass/Vol] 32.4 g/dL Normal 30.5-36.0 [facility] Comment on above: Order Comment: Speci men Type: BLOOD SPECIMENOrdering Facility: [facility] Address: [address] [place] [address] Performed By: #### 5 7021-8 ####[facility] MARYMORIAHLUZMARIAA [id number] [place] [address] [place] MCV (RBC) [Entitic vol] 90.8 fL Normal 80.0-100.0 [facility] Comment on above: Order Comment: Speci men Type: BLOOD SPECIMENOrdering Facility: [facility] Address: [address] [place] [address] Performed By: #### 5 7021-8 ####[facility]ARYMORIAHBLUE [facility] [id number] [place] [address] [place] Monocytes (Bld) [#/Vol] 0.43 10*3/uL Normal <0.87 [facility] Comment on above: Order Comment: Speci men Type: BLOOD SPECIMENOrdering Facility: [facility] Address: [address] [place] [address] Performed By: #### 5 7021-8 ####[facility] MARYRENETTAA [id number] [place] [address] [place] Monocytes/100 WBC (Bld) 7.8 % Normal [facility] Comment on above: Order Comment: Speci men Type: BLOOD SPECIMENOrdering Facility: [facility] Address: [address] [place] [address] Performed By: #### 5 7021-8 ####[facility] CENTERLIA [id number] [place] [address] [place] Neutrophils (Bld) [#/Vol] 3.01 10*3/uL Normal 1.45-7.50 [facility] Comment on above: Order Comment: Speci men Type: BLOOD SPECIMENOrdering Facility: [facility] Address: [address] [place] [address] Performed By: #### 5 7021-8 ####[facility] [id number] [place] [address] [place] Neutrophils/100 WBC (Bld) 55.0 % Normal [facility] Comment on above: Order Comment: Speci men Type: BLOOD SPECIMENOrdering Facility: [facility] Address: [address] [place] [address] Performed By: #### 5 7021-8 ####[facility] [id number] [place] [address] [place] Nucleated RBC (Bld) [#/Vol] 10*3/uL Normal <0.01 [facility] Comment on above: Order Comment: Speci men Type: BLOOD SPECIMENOrdering Facility: [facility] Address: [address] [place] [address] Performed By: #### 5 7021-8 ####[facility] [id number] [place] [address] [place] Nucleated RBC/100 WBC (Bld) [Ratio] 0.0 /100 WBC Normal [facility] Comment on above: Order Comment: Speci men Type: BLOOD SPECIMENOrdering Facility: [facility] Address: [address] [place] [address] Performed By: #### 5 7021-8 ####[facility] [id number] [place] [address] [place] Platelet mean volume (Bld) [Entitic vol] 10.1 fL Normal 9.0-12.7 [facility] Comment on above: Order Comment: Speci men Type: BLOOD SPECIMENOrdering Facility: [facility] Address: [address] [place] [address] Performed By: #### 5 7021-8 ####[facility] HERMINIOWNCLIA [id number] [place] [address] [place] Platelets (Bld) [#/Vol] 148 10*3/uL Low 150-400 [facility] Comment on above: Order Comment: Speci men Type: BLOOD SPECIMENOrdering Facility: [facility] Address: [address] [place] [address] Performed By: #### 5 7021-8 ####[facility] MARYNCLIA [id number] [place] [address] [place] RBC (Bld) [#/Vol] 3.81 10*6/uL Low 3.90-5.20 [facility] Comment on above: Order Comment: Speci men Type: BLOOD SPECIMENOrdering Facility: [facility] Address: [address] [place] [address] Performed By: #### 5 7021-8 ####[facility] MARYNCLIA [id number] [place] [address] [place] WBC (Bld) [#/Vol] 5.48 10*3/uL Normal 3.70-11.00 [facility] Comment on above: Order Comment: Speci men Type: BLOOD SPECIMENOrdering Facility: [facility] Address: [address] [place] [address] Performed By: #### 5 7021-8 ####[facility] MARYNCLIA [id number] [address] [place] CON[place]IRM BLOOD TYPEon 025 ABO A Normal [facility] Comment on above: Order Comment: Speci men Type: BLOOD SPECIMENOrdering Facility: [facility] Address: [address] [place] [address] Performed By: #### C ONABO ####CC MAIN BLOOD BANKCLIA [id number] [place] [id number] [place] Rh Nom (Bld) Positive Normal [facility] Comment on above: Order Comment: Speci men Type: BLOOD SPECIMENOrdering Facility: [facility] Address: [address] [place] [address] Performed By: #### C ONABO ####CC MAIN BLOOD BANKCLIA [id number] [place] [address] [place] Comprehensive metabolic 2000 panelon 09-14-2024 Albumin [Mass/Vol] 3.9 g/dL Normal 3.9-4.9 [facility] Comment on above: Order Comment: Speci men Type: BLOOD SPECIMENOrdering Facility: [facility] Address: [address] [place] [address] Performed By: #### 2 4323-8 ####[facility] BOULEVARDA [id number] [place] [address] [place] ALP [Catalytic activity/Vol] 66 U/L Normal 34-123 [facility] Comment on above: Order Comment: Speci men Type: BLOOD SPECIMENOrdering Facility: [facility] Address: [address] [place] [address] Performed By: #### 2 4323-8 ####[facility] CENTERLIA [id number] [place] [address] [place] ALT [Catalytic activity/Vol] 15 U/L Normal 7-38 [facility] Comment on above: Order Comment: Speci men Type: BLOOD SPECIMENOrdering Facility: [facility] Address: [address] [place] [address] Performed By: #### 2 4323-8 ####[facility] CENTERLIA [id number] [place] [address] [place] Anion gap [Moles/Vol] 7 mmol/L Low 8-15 [facility] Comment on above: Order Comment: Speci men Type: BLOOD SPECIMENOrdering Facility: [facility] Address: [address] [place] [address] Performed By: #### 2 4323-8 ####[facility] MILLTOWNCLIA [id number] [place] [address] [place] AST [Catalytic activity/Vol] 20 U/L Normal 13-35 [facility] Comment on above: Order Comment: Speci men Type: BLOOD SPECIMENOrdering Facility: [facility] Address: [address] [place] [address] Performed By: #### 2 4323-8 ####[facility] MILLTOWNCLIA [id number] [place] [address] [place] Bilirubin [Mass/Vol] 0.3 mg/dL Normal 0.2-1.3 [facility] Comment on above: Order Comment: Speci men Type: BLOOD SPECIMENOrdering Facility: [facility] Address: [address] [place] [address] Performed By: #### 2 4323-8 ####[facility] MILLTOWNCLIA [id number] [place] [address] [place] Calcium [Mass/Vol] 9.3 mg/dL Normal 8.5-10.2 [facility] Comment on above: Order Comment: Speci men Type: BLOOD SPECIMENOrdering Facility: [facility] Address: [address] [place] [address] Performed By: #### 2 4323-8 ####[facility] MILLTOWNCLIA [id number] [place] [address] [place] Chloride [Moles/Vol] 106 mmol/L Normal 98-107 [facility] Comment on above: Order Comment: Speci men Type: BLOOD SPECIMENOrdering Facility: [facility] Address: [address] [place] [address] Performed By: #### 2 4323-8 ####[facility] MILLTOWNCLIA [id number] [place] [address] [place] CO2 [Moles/Vol] 27 mmol/L Normal 22-30 [facility] Comment on above: Order Comment: Speci men Type: BLOOD SPECIMENOrdering Facility: [facility] Address: [address] [place] [address] Performed By: #### 2 4323-8 ####[facility] [id number] [place] [address] [place] Creatinine [Mass/Vol] 0.99 mg/dL High 0.58-0.96 [facility] Comment on above: Order Comment: Speci men Type: BLOOD SPECIMENOrdering Facility: [facility] Address: [address] [place] [address] Performed By: #### 2 4323-8 ####[facility] [id number] [place] [address] [place] Creatinine and Glomerular filtration rate.predicted panel (S/P/Bld) 57 mL/min/1.73m??? Low >=60 [facility] Comment on above: Order Comment: Speci men Type: BLOOD SPECIMENOrdering Facility: [facility] Address: [address] [place] [address] Result Comment: Brandy mated Glomerular Filtration Rate (eGFR) is calculated using the 2020 CKD-EPI creatinine equation. This equation utilizes serum creatinine, sex, and age as parameters. The creatinine assay has traceable calibration to isotope dilution-mass spectrometry. Refer to KDIGO guidelines for clinical interpretation. In patients with unstable renal function, e.g. those with acute kidney injury, the eGFR may not accurately reflect actual GFR. Performed By: #### 2 4323-8 ####[facility] CENTERLI [id number] [place] [address] [place] Glucose [Mass/Vol] 92 mg/dL Normal 74-99 [facility] Comment on above: Order Comment: Speci men Type: BLOOD SPECIMENOrdering Facility: [facility] Address: [address] [place], [place] [id number] Result Comment: The [place] Diabetes Association (ADA) provides guidance for cutoff values for fasting glucose and random glucose. The ADA defines fasting as no caloric intake for at least 8 hours. Fasting plasma glucose results between 100 to 125 mg/dL indicate increased risk for diabetes (prediabetes).Fasting plasma glucose results greater than or equal to 126 mg/dL meet the criteria for diagnosis of diabetes. In the absence of unequivocal hyperglycemia, results should be confirmed by repeat testing. In a patient with classic symptoms of hyperglycemia or hyperglycemic crisis, random plasma glucose results greater than or equal to 200 mg/dL meet the criteria for diagnosis of diabetes.Reference: Standards of Medical Care in Diabetes 2016, [place] [employer] Association. Diabetes Care. 2016.39(Suppl 1). Performed By: #### 2 4323-8 ####[facility] [id number] [place] [address] [place] Potassium [Moles/Vol] 4.1 mmol/L Normal 3.7-5.1 [facility] Comment on above: Order Comment: Speci men Type: BLOOD SPECIMENOrdering Facility: [facility] Address: [address] [place] [address] Performed By: #### 2 4323-8 ####[facility] [id number] [place] [address] [place] Protein [Mass/Vol] 6.4 g/dL Normal 6.3-8.0 [facility] Comment on above: Order Comment: Speci men Type: BLOOD SPECIMENOrdering Facility: [facility] Address: [address] [place], [place] [id number] Performed By: #### 2 4323-8 ####[facility] [id number] [place] [address] [place] Sodium [Moles/Vol] 140 mmol/L Normal 136-144 [facility] Comment on above: Order Comment: Speci men Type: BLOOD SPECIMENOrdering Facility: [facility] Address: [address] [place] [address] Performed By: #### 2 4323-8 ####[facility] HARISLIA [id number] [place] [address] [place] Urea nitrogen [Mass/Vol] 34 mg/dL High 7-21 [facility] Comment on above: Order Comment: Speci men Type: BLOOD SPECIMENOrdering Facility: [facility] Address: [address] [place] [address] Performed By: #### 2 4323-8 ####[facility] ISANCLIA [id number] [place] [address] [place] HISTORY PHYSICALon HISTORY PHYSICAL Normal [facility] LIPID PANEL, NONFASTINGon Cholesterol [Mass/Vol] 137 mg/dL Normal <200 [facility] Comment on above: Order Comment: Speci men Type: BLOOD SPECIMENOrdering Facility: [facility] Address: [address] [place] [address] Result Comment: <200 mg/dL, Desirable 200-239 mg/dL, Borderline high>239 mg/dL, High Performed By: #### L IPNF ####[facility] LABCLIA [id number] [place] [address] [place] HDL CHOLESTEROL, NF 63 mg/dL Normal >39 [facility] Comment on above: Order Comment: Speci men Type: BLOOD SPECIMENOrdering Facility: [facility] Address: [address] [place] [address] Result Comment: 40-5 9 mg/dL, Acceptable>59 mg/dL, High: Negative risk factor for coronary heart disease<40 mg/dL, Low: Positive risk factor for coronary heart disease Performed By: #### L IPNF ####[facility] LABCLIA [id number] [place] [id number] [place] LDL CHOLESTEROL, NF 61 mg/dL Normal <100 [facility] Comment on above: Order Comment: Corinehakeem gamez Type: BLOOD SPECIMENOrdering Facility: [facility] Address: [address] [place] [address] Result Comment: <100 mg/dL, Optimal 100-129 mg/dL, Near optimal/above optimal 130-159 mg/dL, Borderline high 160-189 mg/dL, High>189 mg/dL, Very highSecondary prevention optimal LDL Cholesterol levels are recommended to be < 70 mg/dL Performed By: #### L IPNF ####[facility] LABCLIA [id number] [address] [place] LDL/HDL RATIO, NF 0.97 mg/dL Normal <2.54 [facility] Comment on above: Order Comment: Ramirez gamez Type: BLOOD SPECIMENOrdering Facility: [facility] Address: [address] [place] [address] Result Comment: Refe rence:1. National Cholesterol Education Program ATP III Guideline At-A-Glance Quick Desk Reference: National Heart, Lung, and Blood [place]. National Institutes of Health. 2001: NIH Publication No. 01-3305.2. An International Atherosclerosis Society position paper: global recommendations for the management of dyslipidemia: executive summary, Atherosclerosis. 2014: 232(2):410-413. Performed By: #### L IPNF ####[facility] LABIA [id number] [place] [address] [place] NON HDL CHOL, NF 74 mg/dL Normal <130 [facility] Comment on above: Order Comment: Corinehakeem gamez Type: BLOOD SPECIMENOrdering Facility: [facility] Address: [address] [place] [address] Result Comment: <130 mg/dL, Optimal 130-159 mg/dL, Near optimal/above optimal 160-189 mg/dL, Borderline high 190-219 mg/dL, High>219 mg/dL, Very highSecondary prevention optimal non HDL Cholesterol levels are recommended to be <100 mg/dL Performed By: #### L IPNF ####[facility] LABCLIA [id number] [place] [address] [place] T CHOL/HDL RATIO NF 2.17 mg/dL Normal <5.10 [facility] Comment on above: Order Comment: Speci men Type: BLOOD SPECIMENOrdering Facility: [facility] Address: [address] [place] [address] Performed By: #### L IPNF ####[facility] LABCLIA [id number] [place] [address] [place] TRIGLYCERIDES, NF 65 mg/dL Normal <150 [facility] Comment on above: Order Comment: Speci men Type: BLOOD SPECIMENOrdering Facility: [facility] Address: [address] [place] [address] Result Comment: <150 mg/dL, Normal 150-199 mg/dL, Borderline high 200-499 mg/dL, High>499 mg/dL, Very high Performed By: #### L IPNF ####[facility] LABCLIA [id number] [place] [address] [place] VLDL CHOLESTEROL, NF 13 mg/dL Normal <30 [facility] Comment on above: Order Comment: Speci men Type: BLOOD SPECIMENOrdering Facility: [facility] Address: [address] [place] [address] Performed By: #### L IPNF ####[facility] LABCLIA [id number] [place] [address] [place] TYPE AND SCREEN,30 DAYon ABO A Normal [facility] Comment on above: Order Comment: Speci men Type: BLOOD SPECIMENOrdering Facility: [facility] Address: [address] [place] [address] Performed By: #### T SCR30 ####[facility] BLOOD BANKCLIA [id number] [place] [address] [place] Rh Nom (Bld) Positive Normal [facility] Comment on above: Order Comment: Speci men Type: BLOOD SPECIMENOrdering Facility: [facility] Address: [address] [place] [address] Performed By: #### T SCR30 ####[facility] BLOOD BANKCLIA [id number] [id number] [address] [place] ANES POSTPROC EVALon 025 ANES POSTPROC EVAL Normal [facility] ANES PRE-OPon 09-13-2024 ANES PRE-OP Normal [facility] EGD Study observation Narrat iveon 09-13-2024 [facility] Radiology Study observation (narrative) [facility] ERCPon 09-13-2024 ERCP Normal [facility] ERCP Study observation Narra tiveon 09-13-2024 [facility] Radiology Study observation (narrative) [facility] HISTORY PHYSICALon HISTORY PHYSICAL Normal [facility] NURSING PROGon 09-13-2024 NURSING PROG Normal [facility] NURSING PROG Normal [facility] NURSING PROG Normal [facility] Upper EUSon 09-13-2024 Upper EUS Normal [facility] EMG(NEURO/NI)on 09-10-2024 Results can be seen in attached scanned documents. If you are a patient reviewing this test result, call the doctor who ordered the test with any questions. [facility] CNPNon 09-09-2024 CNPN Normal [facility] CNPNon 09-08-2024 CNPN Normal [facility] MR Biliary ducts and Pancrea tic duct WO and W contrast Chava 09-07-2024 * * *Final Report* * * DATE OF EXAM: Sep 07 2024 10:31AM [facility] 0730 - MRI PANC/MAGNOLIA WO/W IVCON / PROCEDURE REASON: Abnormal results of liver function studies * * * * Physician Interpretation * * * * MRI ABDOMEN WITHOUT AND WITH IV CONTRAST , 3D REFORMATTED IMAGES CLINICAL HISTORY: Incidental noted dilation of the common bile duct and pancreatic duct on CT abdomen pelvis 06/24/2024. Evaluate for ampullary mass or choledocholithiasis. TECHNIQUE: Magnet: 1.5T scanner. Multiplanar MRI of the abdomen with multiple sequences, performed before and after intravenous contrast. Additional MR cholangiopancreatography sequences were performed. Image post-processing {Maximum intensity Projection (MIP), Volume-rendered (VR), Surface shaded display images (SSD) or complex volumetric analysis} was performed at an off-line workstation with concurrent physician supervision, with images created, reviewed and archived. Contrast: Intravenous: 5 ml of Elucirem COMPARISON: CT abdomen pelvis 06/24/2024. RESULT: Limited study due to motion related artifacts. Liver: Normal morphology. No hepatic steatosis. No mass. Few subcentimeter cysts. Biliary: Marked dilation of the CBD and common hepatic, with only mild intrahepatic bile duct dilation. A 0.8 cm nodular filling defect is noted in the distal CBD near the ampulla, without currently causing obstruction. There is no associated enhancement or restricted diffusion. Small amount of layering sludge/inspissated bile is noted within the intrahepatic bile ducts, and probably within the gallbladder. Spleen: No mass. No splenomegaly. Pancreas: Diffusely dilated main pancreatic duct measuring up to 7 mm at the level of the ampulla (4:39), without discrete obstructive process. No pancreatic masses Adrenals: No mass. Kidneys: No solid or cystic mass. No hydronephrosis. GI: Large hiatal hernia. No dilation or wall thickening. Lymph nodes: No abdominal lymphadenopathy. Mesentery / Peritoneum / Retroperitoneum: No ascites or mass. Vasculature: The celiac axis and SMA are patent. The portal vein and branches, splenic vein, SMV, are patent. Hepatic veins are incompletely visualized.. No aortic or iliac artery aneurysm. Bones/Soft Tissues: Degenerative changes. Multiple chronic compression deformities, status post L2-4 vertebral body augmentation. Small RIGHT inguinal hernia. Lower chest: Unremarkable. DIVISION OF RADIOLOGY Provider, [facility] - 09/07/2024 * * *Final Report* * * DATE OF EXAM: Sep 07 2024 10:31AM [facility] 0730 - MRI PANC/MAGNOLIA WO/W IVCON / PROCEDURE REASON: Abnormal results of liver function studies * * * * Physician Interpretation * * * * MRI ABDOMEN WITHOUT AND WITH IV CONTRAST , 3D REFORMATTED IMAGES CLINICAL HISTORY: Incidental noted dilation of the common bile duct and pancreatic duct on CT abdomen pelvis 06/24/2024. Evaluate for ampullary mass or choledocholithiasis. TECHNIQUE: Magnet: 1.5T scanner. Multiplanar MRI of the abdomen with multiple sequences, performed before and after intravenous contrast. Additional MR cholangiopancreatography sequences were performed. Image post-processing {Maximum intensity Projection (MIP), Volume-rendered (VR), Surface shaded display images (SSD) or complex volumetric analysis} was performed at an off-line workstation with concurrent physician supervision, with images created, reviewed and archived. Contrast: Intravenous: 5 ml of Elucirem COMPARISON: CT abdomen pelvis 06/24/2024. RESULT: Limited study due to motion related artifacts. Liver: Normal morphology. No hepatic steatosis. No mass. Few subcentimeter cysts. Biliary: Marked dilation of the CBD and common hepatic, with only mild intrahepatic bile duct dilation. A 0.8 cm nodular filling defect is noted in the distal CBD near the ampulla, without currently causing obstruction. There is no associated enhancement or restricted diffusion. Small amount of layering sludge/inspissated bile is noted within the intrahepatic bile ducts, and probably within the gallbladder. Spleen: No mass. No splenomegaly. Pancreas: Diffusely dilated main pancreatic duct measuring up to 7 mm at the level of the ampulla (4:39), without discrete obstructive process. No pancreatic masses Adrenals: No mass. Kidneys: No solid or cystic mass. No hydronephrosis. GI: Large hiatal hernia. No dilation or wall thickening. Lymph nodes: No abdominal lymphadenopathy. Mesentery / Peritoneum / Retroperitoneum: No ascites or mass. Vasculature: The celiac axis and SMA are patent. The portal vein and branches, splenic vein, SMV, are patent. Hepatic veins are incompletely visualized.. No aortic or iliac artery aneurysm. Bones/Soft Tissues: Degenerative changes. Multiple chronic compression deformities, status post L2-4 vertebral body augmentation. Small RIGHT inguinal hernia. Lower chest: Unremarkable. IMPRESSION IMPRESSION: Persistent marked biliary ductal dilation, predominantly of the extrahepatic bile ducts, with a filling defect within the distal CBD, but without currently causing obstruction. Diffuse dilation of the main pancreatic duct, also similar to the prior study and without a discrete obstructive process identified. Recommend correlation with EGD/EUS for further workup. ACTIONABLE RESULT: FOLLOW-UP Acuity: Actionable Findings: Pancreas/Biliary Routing Code: PB_1 Recommendation: Unlisted Recommendation (see report) Time Frame: as soon as possible, when the patient's clinical state allows. COMMUNICATION: Results will be communicated with the ordering provider via [employer] staff message or phone message by [employer] within 2 business days of report finalization. --END OF FINDING-- Synthetic Staple Extruder: ARTHUR Transcribe Date/Time: Sep 07 2024 10:32A Dictated by : VON COLES, DO This examination was interpreted and the report reviewed and electronically signed by: PIA DAVEY MD on Sep 07 2024 3:23PM [facility] MR Unspecified body region 3 D post processingon 09-07-2024 * * *Final Report* * * DATE OF EXAM: Sep 07 2024 9:50AM [facility] 0280 - MRI 3D POST PROCESSING / PROCEDURE REASON: Abnormal results of liver function studies * * * * Physician Interpretation * * * * MRI ABDOMEN WITHOUT AND WITH IV CONTRAST , 3D REFORMATTED IMAGES CLINICAL HISTORY: Incidental noted dilation of the common bile duct and pancreatic duct on CT abdomen pelvis 06/24/2024. Evaluate for ampullary mass or choledocholithiasis. TECHNIQUE: Magnet: 1.5T scanner. Multiplanar MRI of the abdomen with multiple sequences, performed before and after intravenous contrast. Additional MR cholangiopancreatography sequences were performed. Image post-processing {Maximum intensity Projection (MIP), Volume-rendered (VR), Surface shaded display images (SSD) or complex volumetric analysis} was performed at an off-line workstation with concurrent physician supervision, with images created, reviewed and archived. Contrast: Intravenous: 5 ml of Elucirem COMPARISON: CT abdomen pelvis 06/24/2024. RESULT: Limited study due to motion related artifacts. Liver: Normal morphology. No hepatic steatosis. No mass. Few subcentimeter cysts. Biliary: Marked dilation of the CBD and common hepatic, with only mild intrahepatic bile duct dilation. A 0.8 cm nodular filling defect is noted in the distal CBD near the ampulla, without currently causing obstruction. There is no associated enhancement or restricted diffusion. Small amount of layering sludge/inspissated bile is noted within the intrahepatic bile ducts, and probably within the gallbladder. Spleen: No mass. No splenomegaly. Pancreas: Diffusely dilated main pancreatic duct measuring up to 7 mm at the level of the ampulla (4:39), without discrete obstructive process. No pancreatic masses Adrenals: No mass. Kidneys: No solid or cystic mass. No hydronephrosis. GI: Large hiatal hernia. No dilation or wall thickening. Lymph nodes: No abdominal lymphadenopathy. Mesentery / Peritoneum / Retroperitoneum: No ascites or mass. Vasculature: The celiac axis and SMA are patent. The portal vein and branches, splenic vein, SMV, are patent. Hepatic veins are incompletely visualized.. No aortic or iliac artery aneurysm. Bones/Soft Tissues: Degenerative changes. Multiple chronic compression deformities, status post L2-4 vertebral body augmentation. Small RIGHT inguinal hernia. Lower chest: Unremarkable. DIVISION OF RADIOLOGY Provider, [facility] - 09/07/2024 * * *Final Report* * * DATE OF EXAM: Sep 07 2024 9:50AM [facility] 0280 - MRI 3D POST PROCESSING / PROCEDURE REASON: Abnormal results of liver function studies * * * * Physician Interpretation * * * * MRI ABDOMEN WITHOUT AND WITH IV CONTRAST , 3D REFORMATTED IMAGES CLINICAL HISTORY: Incidental noted dilation of the common bile duct and pancreatic duct on CT abdomen pelvis 06/24/2024. Evaluate for ampullary mass or choledocholithiasis. TECHNIQUE: Magnet: 1.5T scanner. Multiplanar MRI of the abdomen with multiple sequences, performed before and after intravenous contrast. Additional MR cholangiopancreatography sequences were performed. Image post-processing {Maximum intensity Projection (MIP), Volume-rendered (VR), Surface shaded display images (SSD) or complex volumetric analysis} was performed at an off-line workstation with concurrent physician supervision, with images created, reviewed and archived. Contrast: Intravenous: 5 ml of Elucirem COMPARISON: CT abdomen pelvis 06/24/2024. RESULT: Limited study due to motion related artifacts. Liver: Normal morphology. No hepatic steatosis. No mass. Few subcentimeter cysts. Biliary: Marked dilation of the CBD and common hepatic, with only mild intrahepatic bile duct dilation. A 0.8 cm nodular filling defect is noted in the distal CBD near the ampulla, without currently causing obstruction. There is no associated enhancement or restricted diffusion. Small amount of layering sludge/inspissated bile is noted within the intrahepatic bile ducts, and probably within the gallbladder. Spleen: No mass. No splenomegaly. Pancreas: Diffusely dilated main pancreatic duct measuring up to 7 mm at the level of the ampulla (4:39), without discrete obstructive process. No pancreatic masses Adrenals: No mass. Kidneys: No solid or cystic mass. No hydronephrosis. GI: Large hiatal hernia. No dilation or wall thickening. Lymph nodes: No abdominal lymphadenopathy. Mesentery / Peritoneum / Retroperitoneum: No ascites or mass. Vasculature: The celiac axis and SMA are patent. The portal vein and branches, splenic vein, SMV, are patent. Hepatic veins are incompletely visualized.. No aortic or iliac artery aneurysm. Bones/Soft Tissues: Degenerative changes. Multiple chronic compression deformities, status post L2-4 vertebral body augmentation. Small RIGHT inguinal hernia. Lower chest: Unremarkable. IMPRESSION IMPRESSION: Persistent marked biliary ductal dilation, predominantly of the extrahepatic bile ducts, with a filling defect within the distal CBD, but without currently causing obstruction. Diffuse dilation of the main pancreatic duct, also similar to the prior study and without a discrete obstructive process identified. Recommend correlation with EGD/EUS for further workup. ACTIONABLE RESULT: FOLLOW-UP Acuity: Actionable Findings: Pancreas/Biliary Routing Code: PB_1 Recommendation: Unlisted Recommendation (see report) Time Frame: as soon as possible, when the patient's clinical state allows. COMMUNICATION: Results will be communicated with the ordering provider via [employer] staff message or phone message by [facility] within 2 business days of report finalization. --END OF FINDING-- Synthetic Staple Extruder: ARTHUR Transcribe Date/Time: Sep 07 2024 10:32A Dictated by : VON COLES, DO This examination was interpreted and the report reviewed and electronically signed by: PIA DAVEY MD on Sep 07 2024 3:23PM EST [facility] MRI 3D POST PROCESSINGon MRI 3D POST PROCESSING Invalid Interpretation Code [facility] MRI PANC/MAGNOLIA WO/W IVCONon MRI PANC/MAGNOLIA WO/W IVCON Invalid Interpretation Code [facility] No Panel InformationOrdered By: Ccf Provider on 09-07-2024 Interpretation and review of laboratory results Abnormal [facility] Radiology Result ACTIONABLE Abnormal [facility] Comment on above: This report contains an incidental or actionable finding. This finding may be a new finding separate from the reason your provider ordered the imaging test or it may be an already known finding that needs additional or continued follow-up. Because of this incidental or actionable finding, you may need another test (imaging or a different type of test). Please contact your provider for the next steps. [facility] No Panel Informationon 09-07 IMPRESSION: Persistent marked biliary ductal dilation, predominantly of the extrahepatic bile ducts, with a filling defect within the distal CBD, but without currently causing obstruction. Diffuse dilation of the main pancreatic duct, also similar to the prior study and without a discrete obstructive process identified. Recommend correlation with EGD/EUS for further workup. ACTIONABLE RESULT: FOLLOW-UP Acuity: Actionable Findings: Pancreas/Biliary Routing Code: PB_1 Recommendation: Unlisted Recommendation (see report) Time Frame: as soon as possible, when the patient's clinical state allows. COMMUNICATION: Results will be communicated with the ordering provider via [employer] staff message or phone message by [facility] within 2 business days of report finalization. --END OF FINDING-- Synthetic Staple Extruder: ARTHUR Transcribe Date/Time: Sep 07 2024 10:32A Dictated by : VON COLES, DO This examination was interpreted and the report reviewed and electronically signed by: PIA DAVEY MD on Sep 07 2024 3:23PM [facility] DIVISION OF RADIOLOGY Radiology Study observation (narrative) [facility] CNPNon 09-06-2024 CNPN Normal [facility] CNCNPATEDon 09-03-2024 CNCNPATED Normal [facility] CNOVon 09-03-2024 CNOV Normal [facility] HISTORY PHYSICALon HISTORY PHYSICAL Normal [facility] CNPNon 08-25-2024 CNPN Normal [facility] US CAROTID ARTERIES MAGNOLIA VAS LABon 08-25-2024 US CAROTID ARTERIES MAGNOLIA VAS LAB Normal [facility] CBC panel Auto (Bld)on 08-09 Erythrocyte distribution width (RBC) [Ratio] 13.9 % Normal 11.5-15.0 [facility] Comment on above: Order Comment: Speci men Type: BLOOD SPECIMENOrdering Facility: [facility] Address: [address] [place] [address] Performed By: #### 5 8410-2 ####[facility] LABCLIA [id number] [address] [place] Hematocrit (Bld) [Volume fraction] 38.9 % Normal 36.0-46.0 [facility] Comment on above: Order Comment: Speci men Type: BLOOD SPECIMENOrdering Facility: [facility] Address: [address] [place] [address] Performed By: #### 5 8410-2 ####[facility] LABCLIA [id number] [place] [address] [place] Hemoglobin (Bld) [Mass/Vol] 12.3 g/dL Normal 11.5-15.5 [facility] Comment on above: Order Comment: Speci men Type: BLOOD SPECIMENOrdering Facility: [facility] Address: [address] [place] [address] Performed By: #### 5 8410-2 ####[facility] LABCLIA [id number] [place] [address] [place] MCH (RBC) [Entitic mass] 29.6 pg Normal 26.0-34.0 [facility] Comment on above: Order Comment: Speci men Type: BLOOD SPECIMENOrdering Facility: [facility] Address: [address] [place] [address] Performed By: #### 5 8410-2 ####[facility] LABIA [id number] [place] [address] [place] MCHC (RBC) [Mass/Vol] 31.6 g/dL Normal 30.5-36.0 [facility] Comment on above: Order Comment: Speci men Type: BLOOD SPECIMENOrdering Facility: [facility] Address: [address] [place] [address] Performed By: #### 5 8410-2 ####[facility] LABCLIA [id number] [place] [address] [place] MCV (RBC) [Entitic vol] 93.7 fL Normal 80.0-100.0 [facility] Comment on above: Order Comment: Speci men Type: BLOOD SPECIMENOrdering Facility: [facility] Address: [address] [place] [address] Performed By: #### 5 8410-2 ####[facility] LABIA [id number] [place] [address] [place] Nucleated RBC (Bld) [#/Vol] 10*3/uL Normal <0.01 [facility] Comment on above: Order Comment: Speci men Type: BLOOD SPECIMENOrdering Facility: [facility] Address: [address] [place] [address] Performed By: #### 5 8410-2 ####[facility] LABIA [id number] [place] [address] [place] Platelet mean volume (Bld) [Entitic vol] 10.4 fL Normal 9.0-12.7 [facility] Comment on above: Order Comment: Speci men Type: BLOOD SPECIMENOrdering Facility: [facility] Address: [address] [place] [address] Performed By: #### 5 8410-2 ####[facility] LABIA [id number] [place] [address] [place] Platelets (Bld) [#/Vol] 210 10*3/uL Normal 150-400 [facility] Comment on above: Order Comment: Speci men Type: BLOOD SPECIMENOrdering Facility: [facility] Address: [address] [place] [address] Performed By: #### 5 8410-2 ####[facility] LABIA [id number] [place] [address] [place] RBC (Bld) [#/Vol] 4.15 10*6/uL Normal 3.90-5.20 [facility] Comment on above: Order Comment: Speci men Type: BLOOD SPECIMENOrdering Facility: [facility] Address: [address] [place] [address] Performed By: #### 5 8410-2 ####[facility] LABCLIA [id number] [place] [address] [place] WBC (Bld) [#/Vol] 5.66 10*3/uL Normal 3.70-11.00 [facility] Comment on above: Order Comment: Speci men Type: BLOOD SPECIMENOrdering Facility: [facility] Address: [address] [place] [address] Performed By: #### 5 8410-2 ####[facility] LABCLIA [id number] [place] [address] [place] Comprehensive metabolic 2000 panelon 08-09-2024 Albumin [Mass/Vol] 3.7 g/dL Low 3.9-4.9 [facility] Comment on above: Order Comment: Speci men Type: BLOOD SPECIMENOrdering Facility: [facility] Address: [address] [place] [address] Performed By: #### 2 4323-8 ####[facility] LABCLIA [id number] [place] [address] [place] ALP [Catalytic activity/Vol] 70 U/L Normal 34-123 [facility] Comment on above: Order Comment: Speci men Type: BLOOD SPECIMENOrdering Facility: [facility] Address: [address] [place] [address] Performed By: #### 2 4323-8 ####[facility] LABCLIA [id number] [place] [address] [place] ALT [Catalytic activity/Vol] 19 U/L Normal 7-38 [facility] Comment on above: Order Comment: Speci men Type: BLOOD SPECIMENOrdering Facility: [facility] Address: [address] [place] [address] Performed By: #### 2 4323-8 ####[facility] LABCLIA [id number] [place] [address] [place] Anion gap [Moles/Vol] 12 mmol/L Normal 8-15 [facility] Comment on above: Order Comment: Speci men Type: BLOOD SPECIMENOrdering Facility: [facility] Address: [address] [id number] Performed By: #### 2 4323-8 ####[facility] LABCLIA [id number] [place] [address] [place] AST [Catalytic activity/Vol] 29 U/L Normal 13-35 [facility] Comment on above: Order Comment: Speci men Type: BLOOD SPECIMENOrdering Facility: [facility] Address: [address] [place] [address] Performed By: #### 2 4323-8 ####[facility] LABCLIA [id number] [place] [address] [place] Bilirubin [Mass/Vol] 0.4 mg/dL Normal 0.2-1.3 [facility] Comment on above: Order Comment: Speci men Type: BLOOD SPECIMENOrdering Facility: [facility] Address: [address] [place] [address] Performed By: #### 2 4323-8 ####[facility] LABCLIA [id number] [place] [address] [place] Calcium [Mass/Vol] 9.0 mg/dL Normal 8.5-10.2 [facility] Comment on above: Order Comment: Speci men Type: BLOOD SPECIMENOrdering Facility: [facility] Address: [address] [id number] Performed By: #### 2 4323-8 ####[facility] LABCLIA [id number] [place] [address] [place] Chloride [Moles/Vol] 104 mmol/L Normal 98-107 [facility] Comment on above: Order Comment: Speci men Type: BLOOD SPECIMENOrdering Facility: [facility] Address: [address] [place] [address] Performed By: #### 2 4323-8 ####[facility] LABCLIA [id number] [place] [address] [place] CO2 [Moles/Vol] 23 mmol/L Normal 22-30 [facility] Comment on above: Order Comment: Speci men Type: BLOOD SPECIMENOrdering Facility: [facility] Address: [address] [place] [address] Performed By: #### 2 4323-8 ####[facility] LABCLIA [id number] [place] [address] [place] Creatinine [Mass/Vol] 0.85 mg/dL Normal 0.58-0.96 [facility] Comment on above: Order Comment: Speci men Type: BLOOD SPECIMENOrdering Facility: [facility] Address: [address] [place] [address] Performed By: #### 2 4323-8 ####[facility] LABIA [id number] [place] [address] [place] Creatinine and Glomerular filtration rate.predicted panel (S/P/Bld) 69 mL/min/1.73m??? Normal >=60 [facility] Comment on above: Order Comment: Speci men Type: BLOOD SPECIMENOrdering Facility: [facility] Address: [address] [place] [address] Result Comment: Brandy mated Glomerular Filtration Rate (eGFR) is calculated using the 2020 CKD-EPI creatinine equation. This equation utilizes serum creatinine, sex, and age as parameters. The creatinine assay has traceable calibration to isotope dilution-mass spectrometry. Refer to KDIGO guidelines for clinical interpretation. In patients with unstable renal function, e.g. those with acute kidney injury, the eGFR may not accurately reflect actual GFR. Performed By: #### 2 4323-8 ####[facility] LABCLIA [id number] [place] [address] [place] Glucose [Mass/Vol] 121 mg/dL High 74-99 [facility] Comment on above: Order Comment: Speci men Type: BLOOD SPECIMENOrdering Facility: [facility] Address: [address] [place] [address] Result Comment: The [place] Diabetes Association (ADA) provides guidance for cutoff values for fasting glucose and random glucose. The ADA defines fasting as no caloric intake for at least 8 hours. Fasting plasma glucose results between 100 to 125 mg/dL indicate increased risk for diabetes (prediabetes).Fasting plasma glucose results greater than or equal to 126 mg/dL meet the criteria for diagnosis of diabetes. In the absence of unequivocal hyperglycemia, results should be confirmed by repeat testing. In a patient with classic symptoms of hyperglycemia or hyperglycemic crisis, random plasma glucose results greater than or equal to 200 mg/dL meet the criteria for diagnosis of diabetes.Reference: Standards of Medical Care in Diabetes 2016, [place] [employer] Association. Diabetes Care. 2016.39(Suppl 1). Performed By: #### 2 4323-8 ####[facility] LABCLIA [id number] [place] [address] [place] Potassium [Moles/Vol] 4.7 mmol/L Normal 3.7-5.1 [facility] Comment on above: Order Comment: Corinei men Type: BLOOD SPECIMENOrdering Facility: [facility] Address: [address] [place] [address] Performed By: #### 2 4323-8 ####[facility] LABCLIA [id number] [place] [address] [place] Protein [Mass/Vol] 6.5 g/dL Normal 6.3-8.0 [facility] Comment on above: Order Comment: Speci men Type: BLOOD SPECIMENOrdering Facility: [facility] Address: [address] [place], [place] [address] Performed By: #### 2 4323-8 ####[facility] LABCLIA [id number] [place] [address] [place] Sodium [Moles/Vol] 139 mmol/L Normal 136-144 [facility] Comment on above: Order Comment: Speci men Type: BLOOD SPECIMENOrdering Facility: [facility] Address: [address] [place] [address] Performed By: #### 2 4323-8 ####[facility] LABCLIA [id number] [place] [address] [place] Urea nitrogen [Mass/Vol] 20 mg/dL Normal 7-21 [facility] Comment on above: Order Comment: Speci men Type: BLOOD SPECIMENOrdering Facility: [facility] Address: [address] [place] [address] Performed By: #### 2 4323-8 ####[facility] LABIA [id number] [place] [address] [place] PROTEIN ELECTROPHORESIS SERU M (P)on 08-09-2024 Albumin [Mass/Vol] 3.66 g/dL Normal 3.43-5.41 [facility] Comment on above: Order Comment: Speci men Type: BLOOD SPECIMENOrdering Facility: [facility] Address: [address] [place] [address] Performed By: #### L [id number] ####[facility] LABIA [id number] [place] [address] [place] Alpha 1 globulin Elph [Mass/Vol] 0.25 g/dL Normal 0.18-0.43 [facility] Comment on above: Order Comment: Speci men Type: BLOOD SPECIMENOrdering Facility: [facility] Address: [address] [place] [address] Performed By: #### L [id number] ####[facility] LABCLIA [id number] [place] [address] [place] Alpha 2 globulin Elph [Mass/Vol] 0.67 g/dL Normal 0.42-0.98 [facility] Comment on above: Order Comment: Speci men Type: BLOOD SPECIMENOrdering Facility: [facility] Address: [address] [place] [address] Performed By: #### L [id number] ####[facility] LABCLIA [id number] [place] [address] [place] Beta globulin Elph [Mass/Vol] 0.73 g/dL Normal 0.61-1.17 [facility] Comment on above: Order Comment: Speci men Type: BLOOD SPECIMENOrdering Facility: [facility] Address: [address] [place] [address] Performed By: #### L [id number] ####[facility] LABCLIA [id number] [place] [address] [place] Gamma globulin Elph [Mass/Vol] 0.89 g/dL Normal 0.53-1.51 [facility] Comment on above: Order Comment: Speci men Type: BLOOD SPECIMENOrdering Facility: [facility] Address: [address] [place] [address] Performed By: #### L [id number] ####[facility] LABIA [id number] [place] [address] [place] M-PROTEIN LOCATION Normal [facility] Comment on above: Order Comment: Speci men Type: BLOOD SPECIMENOrdering Facility: [facility] Address: [address] [place] [address] Result Comment: Not Applicable. Performed By: #### L [id number] ####[facility] LABIA [id number] [place] [address] [place] Protein Fractions [Interp] No definitive M protein is identified on protein electrophoresis. Normal No definitive M protein is identified on protein electrophor esis. [facility] Comment on above: Order Comment: Speci men Type: BLOOD SPECIMENOrdering Facility: [facility] Address: [address] [place] [address] Performed By: #### L [id number] ####[facility] LABCLIA [id number] [place] [address] [place] Protein.monoclonal Elph [Mass/Vol] 0.00 g/dL Normal <=0.00 [facility] Comment on above: Order Comment: Speci men Type: BLOOD SPECIMENOrdering Facility: [facility] Address: [address] [place] [address] Performed By: #### L [id number] ####[facility] LABCLIA [id number] [place] [address] [place] SPE STAFF REVIEW Reviewed by Dr. Glenys Pierre MD [facility] Comment on above: Order Comment: Speci men Type: BLOOD SPECIMENOrdering Facility: [facility] Address: [address] [place] [address] Performed By: #### L [id number] ####[facility] LABIA [id number] [place] [address] [place] Prot SerPl-mCncon 08-09-2024 Protein [Mass/Vol] 6.2 g/dL Low 6.3-8.0 [facility] Comment on above: Order Comment: Speci men Type: BLOOD SPECIMENOrdering Facility: [facility] Address: [address] [place] [address] Performed By: #### 2 885-2, 2132-9 ####[facility] LABIA [id number] [place] [address] [place] VITAMIN B1 (THIAMINE), WHOLE BLOODon 08-09-2024 Thiamine (Bld) [Moles/Vol] 220.5 nmol/L High 84.3-213.3 [facility] Comment on above: Order Comment: Speci men Type: BLOOD SPECIMENOrdering Facility: [facility] Address: [address] [place] [address] Performed By: #### B 1WB ####[facility] LABIA [id number] [place] [id number] [place] VITAMIN B6/PYRIDOXINon 08-09 VITAMIN B6 47.3 nmol/L Normal 20.0-125.0 [facility] Comment on above: Order Comment: Speci men Type: BLOOD SPECIMENOrdering Facility: [facility] Address: [address] [place] [address] Result Comment: INTE RPRETIVE INFORMATION: Vitamin B6 (Pyridoxal 5-Phosphate)Pyridoxal 5'-phosphate measured in a specimen collected followingan 8-hour or overnight fast accurately indicates vitamin [id number] status. Non-fasting specimen concentration reflectsrecent vitamin intake.This test was developed and its performance characteristicsdetermined by [facility]. It has not been cleared orapproved by the [place] Food and Drug Administration. This test wasperformed in a CLIA certified laboratory and is intended forclinical purposes.Performed By: [facility] [place] [id number] Director: Estelle Bravo MD, PhDCLIA Number: [id number] Performed By: #### V ITB6 ####[facility] [id number] [place] [address] Vit B12 [facility] 024 Cobalamin (Vitamin B12) [Mass/Vol] 1662 pg/mL High 232-1245 [facility] Comment on above: Order Comment: Speci men Type: BLOOD SPECIMENOrdering Facility: [facility] Address: [address] [place], [place] [address] [address] Performed By: #### 2 885-2, 2132-9 ####[facility] LABCLIA [id number] [facility] [id number] [address] [place] CNOVon 08-06-2024 CNOV Normal [facility] CNOVon 08-03-2024 CNOV Normal [facility] ECG COMPLETEon 08-03-2024 Atrial Rate 75 BPM [facility] Calculated P Ailey 42 degrees [facility] Calculated R Ailey -38 degrees [facility] Calculated T Ailey 49 degrees [facility] P-R Interval 188 ms [facility] QRS Duration 78 ms [facility] QT Interval 402 ms [facility] QTC Calculation (Bazett) 448 ms [facility] Ventricular Rate 75 BPM [facility] : HUYEN ALCARAZ PID : [id number] : 1940 Gender : Female Race : ORD : [id number] Procedure Date : Aug 03 2024 15:41:45 Edit Date : Aug 03 2024 16:15:10 Diagnosis: NORMAL SINUS RHYTHM LEFT AXIS DEVIATION POOR R WAVE PROGRESSION INFERIOR MYOCARDIAL INFARCTION , AGE UNDETERMINED ABNORMAL ECG Confirmed by MD MARCIAL QARAB ([id number]), production editor TONYA IVEY ([id number]) on 08/03/2024 4:15:08 PM Test Reason : I25.2 H/O acute myocardial infarction Location : 137 : STCARD Overread By : MD MARCIAL QARAB Edited By : TONYA IVEY Referred By : ANILA DE PAZ Acquired by : , [facility] ECG COMPLETE Normal [facility] ANES POSTPROC EVALon 024 ANES POSTPROC EVAL Normal [facility] ANES PRE-OPon 07-21-2024 ANES PRE-OP Normal [facility] EGD Study observation Narrat iveon 07-21-2024 [facility] Radiology Study observation (narrative) [facility] NURSING PROGon 07-21-2024 NURSING PROG Normal [facility] NURSING PROG Normal [facility] Upper GI endoscopyon 024 Upper GI endoscopy Normal [facility] CNPNon 07-19-2024 CNPN Normal [facility] Knee 4 or More Viewson 07-19 Knee 4 or More Views [facility] [address] [place] [address] Knee 4 or More Views MR#: [id number] Acct: [id number] Name: LAUREN ALCARAZ Rep #: [id number] : 1940 F 83 From: Ezio East MD PCP: Status: DEP AMB Study: Knee 4 or More Views Date of Exam: 07/19/24 Exam# [id number] Ordering Dr: Christopher Turk DO 0:[id number] STUDY: X-RAY - LEFT KNEE REASON FOR EXAM: Female, 83 years old. Pain TECHNIQUE: 4 view(s) of the knee. COMPARISON: 12/25/2022 FINDINGS: Normal visualized distal femur. Normal visualized proximal tibia and fibula. Normal proximal tibiofibular articulation. Normal medial femorotibial compartment. Normal lateral femorotibial compartment. Normal patellofemoral articulation. The soft tissue structures are unremarkable. RAD/Knee 4 or More Views IMPRESSION: Normal x-ray examination of the knee. Electronically Signed: Ezio East MD at 11:07 EST , CC: Dr. Christopher Turk DO Synthetic Staple Extruder: Signed Normal [facility] Orthopedic Visit Reporton Orthopedic Visit Report [facility] [address] [place] [address] OFFICE VISIT Date of Service: 07/19/24 MR#: [id number] Acct: [id number] Name: LAUREN ALCARAZ Rep #: [id number] : 1940 Provider: Dr. Christopher chan DO Age/Sex: 83/F Location: [facility] Status: Signed Intake Vital Signs 06/07/24 08:51 07/07/24 11:48 Height 4 ft 8 in 4 ft 8 in Weight: 101 lb BMI 22.6 BP 160/83 H Blood Pressure Location Rt brachial Position Sitting Respiration 16 Pulse 58 L Pulse Source Monitor Temp 98.6 F Temp Source Temporal Pulse Oximetry (%) 92 Oxygen Delivery Method room air Intake Visit Reasons: RIGHT KNEE Chief Complaint: 3rd Euflexxa Injection Accompanied by: Is patient in pain?: No Allergies doxycycline Allergy (Mild, Verified 07/19/24 15:45) Vomiting oxycodone (From Percocet) Allergy (Mild, Verified 07/19/24 15:45) Confusion acetaminophen (From Darvocet-N) Allergy (Verified 07/19/24 15:45) Other lamotrigine (From Lamictal) Allergy (Verified 07/19/24 15:45) Lip Swelling latex Allergy (Verified 07/19/24 15:45) Rash moxifloxacin HCl (From Avelox) Allergy (Verified 07/19/24 15:45) Other propoxyphene napsylate (From Darvocet-N) Allergy (Verified 07/19/24 15:45) Other zolpidem tartrate (From Ambien) Adverse Reaction (Verified 07/19/24 15:45) Other Medications ???Medication ???Instructions ???Recorded ???Confirmed ???Type L.acidophil-L.casei-B.bifid -B.longum-FOS 1 cap PO DAILY Supplement 09/02/21 07/19/24 History 2 billion cell-50 mg capsule (Probiotic Blend) aspirin 81 mg tablet,delayed 81 mg PO DAILY 01/10/22 07/19/24 History release (Adult Aspirin Regimen) d-mannose 500 mg capsule 500 mg PO DAILY 06/07/22 07/19/24 History famotidine 10 mg tablet 10 mg PO BID 06/07/22 07/19/24 History multivitamin 1 tab PO DAILY 06/07/22 07/19/24 History mirabegron 50 mg tablet,extended 50 mg PO QHS Check with primary 01/29/23 07/19/24 History release 24 hr (Myrbetriq) doctor albuterol sulfate 2.5 mg/3 mL 2.5 mg (3 mL) inhalation Q6H PRN 04/07/23 07/19/24 Rx (0.083 %) solution for nebulization Sob /Or Wheezing #180 mL syringes BD ECLIPSE 04/11/23 07/19/24 History gabapentin 100 mg capsule 100 mg PO DAILY PRN restless 06/09/23 07/19/24 Rx leg(s) #90 caps latanoprost 0.005 % eye drops 1 drp ophthalmic (eye) DAILY 08/13/23 07/19/24 History (Xalatan) furosemide 20 mg tablet 10 mg PO DAILY PRN edema 10/08/23 07/19/24 History donepezil 5 mg tablet (Aricept) 10 mg (2 x 5 mg) PO DAILY #90 tabs 11/12/23 07/19/24 Rx nitroglycerin 0.4 mg sublingual 0.4 mg sublingual Q5-15M PRN chest 11/12/23 07/19/24 Rx tablet pain #25 tabs denosumab 60 mg/mL subcutaneous 60 mg subcut [id number] #1 mL 02/18/24 07/19/24 Rx syringe (Prolia) BD Sry/needle eclips See Rx Instructions IM .COMPLEX 02/23/24 07/19/24 Rx #12 ea azelastine 137 mcg (0.1 %) nasal 2 spray intranasal 03/16/24 07/19/24 History spray cetirizine 10 mg capsule (Zyrtec) 10 mg PO DAILY PRN allergy symptoms 03/16/24 07/19/24 History fluticasone propionate 50 1 spray intranasal DAILY 03/16/24 07/19/24 History mcg/actuation nasal spray,suspension (Allergy Relief (fluticasone)) cyanocobalamin (vitamin B-12) 1,000 mcg IM QMONTH #10 mL 04/01/24 07/19/24 Rx 1,000 mcg/mL injection solution PEP device #1 ea 04/06/24 07/19/24 Rx apixaban 5 mg tablet (Eliquis) 5 mg PO BID #180 tabs 06/08/24 07/19/24 Rx atorvastatin 40 mg tablet See Rx Instructions .Route 06/08/24 07/19/24 Rx .COMPLEX #90 tabs donepezil 10 mg tablet 10 mg PO DAILY #90 tabs 06/08/24 07/19/24 Rx lacosamide 100 mg tablet (Vimpat) 100 mg PO BID #180 tabs 06/08/24 07/19/24 Rx levothyroxine 50 mcg tablet 50 mcg PO DAILY Thyroid #90 tabs 06/08/24 07/19/24 Rx memantine 10 mg tablet 10 mg PO BID Alzheimer's #180 tabs 06/08/24 07/19/24 Rx pramipexole 0.5 mg tablet 0.5 mg PO BID #180 tabs 06/08/24 07/19/24 Rx vortioxetine 20 mg tablet 20 mg PO DAILY DEPRESSION #90 tabs 06/08/24 07/19/24 Rx (Trintellix) Have you fallen in the past year?: No [facility] Medical History Open wound of right lower extremity Contusion of right foot Kyphoscoliosis deformity of spine Bee sting Lumbar contusion Contusion of thoracic wall Pain of left lower extremity Contact with and (suspected) exposure to other viral communicable diseases Contusion of left wrist Left elbow contusion Contusion of left shoulder Scalp contusion Injury of left elbow Injury of left shoulder Presence of stent in coronary artery ( 1989) Atherosclerotic heart disease of [place] coronary artery without angina pectoris Essential hypertension Influenza A Health care maintenance Fa (more content not included)... Normal [facility] HISTORY PHYSICALon HISTORY PHYSICAL Normal [facility] CNPNon 07-14-2024 CNPN Normal [facility] Orthopedic Visit Reporton Orthopedic Visit Report [facility] [address] [place] [address] [address] [place] [address] OFFICE VISIT Date of Service: 07/12/24 MR#: [id number] Acct: [id number] Name: LAUREN ALCARAZ Rep #: [id number] : 1940 Provider: Dr. Christopher chan DO Age/Sex: 83/F Location: [facility] Status: Signed Intake Vital Signs 06/07/24 08:51 07/07/24 11:48 Height 4 ft 8 in 4 ft 8 in Intake Visit Reasons: RIGHT KNEE Allergies doxycycline Allergy (Mild, Verified 07/12/24 15:52) Vomiting oxycodone (From Percocet) Allergy (Mild, Verified 07/12/24 15:52) Confusion acetaminophen (From Darvocet-N) Allergy (Verified 07/12/24 15:52) Other lamotrigine (From Lamictal) Allergy (Verified 07/12/24 15:52) Lip Swelling latex Allergy (Verified 07/12/24 15:52) Rash moxifloxacin HCl (From Avelox) Allergy (Verified 07/12/24 15:52) Other propoxyphene napsylate (From Darvocet-N) Allergy (Verified 07/12/24 15:52) Other zolpidem tartrate (From Ambien) Adverse Reaction (Verified 07/12/24 15:52) Other Medications ???Medication ???Instructions ???Recorded ???Confirmed ???Type L.acidophil-L.casei-B.bifid -B.longum-FOS 1 cap PO DAILY Supplement 09/02/21 07/12/24 History 2 billion cell-50 mg capsule (Probiotic Blend) aspirin 81 mg tablet,delayed 81 mg PO DAILY 01/10/22 07/12/24 History release (Adult Aspirin Regimen) d-mannose 500 mg capsule 500 mg PO DAILY 06/07/22 07/12/24 History famotidine 10 mg tablet 10 mg PO BID 06/07/22 07/12/24 History multivitamin 1 tab PO DAILY 06/07/22 07/12/24 History mirabegron 50 mg tablet,extended 50 mg PO QHS Check with primary 01/29/23 07/12/24 History release 24 hr (Myrbetriq) doctor albuterol sulfate 2.5 mg/3 mL 2.5 mg (3 mL) inhalation Q6H PRN 04/07/23 07/12/24 Rx (0.083 %) solution for nebulization Sob /Or Wheezing #180 mL syringes BD ECLIPSE 04/11/23 07/12/24 History gabapentin 100 mg capsule 100 mg PO DAILY PRN restless 06/09/23 07/12/24 Rx leg(s) #90 caps latanoprost 0.005 % eye drops 1 drp ophthalmic (eye) DAILY 08/13/23 07/12/24 History (Xalatan) furosemide 20 mg tablet 10 mg PO DAILY PRN edema 10/08/23 07/12/24 History donepezil 5 mg tablet (Aricept) 10 mg (2 x 5 mg) PO DAILY #90 tabs 11/12/23 07/12/24 Rx nitroglycerin 0.4 mg sublingual 0.4 mg sublingual Q5-15M PRN chest 11/12/23 07/12/24 Rx tablet pain #25 tabs denosumab 60 mg/mL subcutaneous 60 mg subcut [id number] #1 mL 02/18/24 07/12/24 Rx syringe (Prolia) BD Sry/needle eclips See Rx Instructions IM .COMPLEX 02/23/24 07/12/24 Rx #12 ea azelastine 137 mcg (0.1 %) nasal 2 spray intranasal 03/16/24 07/12/24 History spray cetirizine 10 mg capsule (Zyrtec) 10 mg PO DAILY PRN allergy symptoms 03/16/24 07/12/24 History fluticasone propionate 50 1 spray intranasal DAILY 03/16/24 07/12/24 History mcg/actuation nasal spray,suspension (Allergy Relief (fluticasone)) cyanocobalamin (vitamin B-12) 1,000 mcg IM QMONTH #10 mL 04/01/24 07/12/24 Rx 1,000 mcg/mL injection solution PEP device #1 ea 04/06/24 07/12/24 Rx apixaban 5 mg tablet (Eliquis) 5 mg PO BID #180 tabs 06/08/24 07/12/24 Rx atorvastatin 40 mg tablet See Rx Instructions .Route 06/08/24 07/12/24 Rx .COMPLEX #90 tabs donepezil 10 mg tablet 10 mg PO DAILY #90 tabs 06/08/24 07/12/24 Rx lacosamide 100 mg tablet (Vimpat) 100 mg PO BID #180 tabs 06/08/24 07/12/24 Rx levothyroxine 50 mcg tablet 50 mcg PO DAILY Thyroid #90 tabs 06/08/24 07/12/24 Rx memantine 10 mg tablet 10 mg PO BID Alzheimer's #180 tabs 06/08/24 07/12/24 Rx pramipexole 0.5 mg tablet 0.5 mg PO BID #180 tabs 06/08/24 07/12/24 Rx vortioxetine 20 mg tablet 20 mg PO DAILY DEPRESSION #90 tabs 06/08/24 07/12/24 Rx (Trintellix) Have you fallen in the past year?: Yes [facility] Medical History Open wound of right lower extremity Contusion of right foot Kyphoscoliosis deformity of spine Bee sting Lumbar contusion Contusion of thoracic wall Pain of left lower extremity Contact with and (suspected) exposure to other viral communicable diseases Contusion of left wrist Left elbow contusion Contusion of left shoulder Scalp contusion Injury of left elbow Injury of left shoulder Presence of stent in coronary artery ( 1989) Atherosclerotic heart disease of [place] coronary artery without angina pectoris Essential hypertension Influenza A Health care maintenance Falls frequently Cancer Depression Dementia Walker as ambulation aid Arthritis Bladder disease Low iron DVT (deep venous thrombosis) High cholesterol Restless legs Back pain TIA (transient ischemic attack) Seizures Difficulty swallowing Gastric reflux Non-smoker Asthma Shortness of breath on exertion Hx of echocardiogram Hist (more content not included)... Normal [facility] CNPNon 07-07-2024 CNPN Normal [facility] MR/BMS.IMBon 07-07-2024 MR/BMS.IMB [facility] [address] [place] [address] OFFICE VISIT Date of Service: 07/07/24 MR#: [id number] Acct: [id number] Name: LAUREN ALCARAZ Rep #: [id number] : 1940 Provider: Dr. Chema williamson MD Age/Sex: 83/F Location: [facility] Status: Signed Intake Vital Signs 06/07/24 08:51 07/07/24 11:48 Height 4 ft 8 in 4 ft 8 in Weight: 101 lb BMI 22.6 BP 160/83 H Blood Pressure Location Rt brachial Position Sitting Respiration 16 Pulse 58 L Pulse Source Monitor Temp 98.6 F Temp Source Temporal Pulse Oximetry (%) 92 Oxygen Delivery Method room air Intake Visit Reasons: Surgery Clearance Chief Complaint: surgery clearance Pulmonary Function Technologist Required: No Accompanied by: Self Is patient in pain?: No Allergies doxycycline Allergy (Mild, Verified 07/07/24 11:43) Vomiting oxycodone (From Percocet) Allergy (Mild, Verified 07/07/24 11:43) Confusion acetaminophen (From Darvocet-N) Allergy (Verified 07/07/24 11:43) Other lamotrigine (From Lamictal) Allergy (Verified 07/07/24 11:43) Lip Swelling latex Allergy (Verified 07/07/24 11:43) Rash moxifloxacin HCl (From Avelox) Allergy (Verified 07/07/24 11:43) Other propoxyphene napsylate (From Darvocet-N) Allergy (Verified 07/07/24 11:43) Other zolpidem tartrate (From Ambien) Adverse Reaction (Verified 07/07/24 11:43) Other Medications ???Medication ???Instructions ???Recorded ???Confirmed ???Type L.acidophil-L.casei-B.bifid -B.longum-FOS 1 cap PO DAILY Supplement 09/02/21 07/07/24 History 2 billion cell-50 mg capsule (Probiotic Blend) aspirin 81 mg tablet,delayed 81 mg PO DAILY 01/10/22 07/07/24 History release (Adult Aspirin Regimen) d-mannose 500 mg capsule 500 mg PO DAILY 06/07/22 07/07/24 History famotidine 10 mg tablet 10 mg PO BID 06/07/22 07/07/24 History multivitamin 1 tab PO DAILY 06/07/22 07/07/24 History mirabegron 50 mg tablet,extended 50 mg PO QHS Check with primary 01/29/23 07/07/24 History release 24 hr (Myrbetriq) doctor albuterol sulfate 2.5 mg/3 mL 2.5 mg (3 mL) inhalation Q6H PRN 04/07/23 07/07/24 Rx (0.083 %) solution for nebulization Sob /Or Wheezing #180 mL syringes BD ECLIPSE 04/11/23 07/07/24 History gabapentin 100 mg capsule 100 mg PO DAILY PRN restless 06/09/23 07/07/24 Rx leg(s) #90 caps latanoprost 0.005 % eye drops 1 drp ophthalmic (eye) DAILY 08/13/23 07/07/24 History (Xalatan) furosemide 20 mg tablet 10 mg PO DAILY PRN edema 10/08/23 07/07/24 History donepezil 5 mg tablet (Aricept) 10 mg (2 x 5 mg) PO DAILY #90 tabs 11/12/23 07/07/24 Rx nitroglycerin 0.4 mg sublingual 0.4 mg sublingual Q5-15M PRN chest 11/12/23 07/07/24 Rx tablet pain #25 tabs denosumab 60 mg/mL subcutaneous 60 mg subcut [id number] #1 mL 02/18/24 07/07/24 Rx syringe (Prolia) BD Sry/needle eclips See Rx Instructions IM .COMPLEX 02/23/24 07/07/24 Rx #12 ea azelastine 137 mcg (0.1 %) nasal 2 spray intranasal 03/16/24 07/07/24 History spray cetirizine 10 mg capsule (Zyrtec) 10 mg PO DAILY PRN allergy symptoms 03/16/24 07/07/24 History fluticasone propionate 50 1 spray intranasal DAILY 03/16/24 07/07/24 History mcg/actuation nasal spray,suspension (Allergy Relief (fluticasone)) cyanocobalamin (vitamin B-12) 1,000 mcg IM QMONTH #10 mL 04/01/24 07/07/24 Rx 1,000 mcg/mL injection solution PEP device #1 ea 04/06/24 07/07/24 Rx apixaban 5 mg tablet (Eliquis) 5 mg PO BID #180 tabs 06/08/24 07/07/24 Rx atorvastatin 40 mg tablet See Rx Instructions .Route 06/08/24 07/07/24 Rx .COMPLEX #90 tabs donepezil 10 mg tablet 10 mg PO DAILY #90 tabs 06/08/24 07/07/24 Rx lacosamide 100 mg tablet (Vimpat) 100 mg PO BID #180 tabs 06/08/24 07/07/24 Rx levothyroxine 50 mcg tablet 50 mcg PO DAILY Thyroid #90 tabs 06/08/24 07/07/24 Rx memantine 10 mg tablet 10 mg PO BID Alzheimer's #180 tabs 06/08/24 07/07/24 Rx pramipexole 0.5 mg tablet 0.5 mg PO BID #180 tabs 06/08/24 07/07/24 Rx vortioxetine 20 mg tablet 20 mg PO DAILY DEPRESSION #90 tabs 06/08/24 07/07/24 Rx (Trintellix) Have you fallen in the past year?: Yes (06/28/2024) [facility] Medical History Open wound of right lower extremity Contusion of right foot Kyphoscoliosis deformity of spine Bee sting Lumbar contusion Contusion of thoracic wall Pain of left lower extremity Contact with and (suspected) exposure to other viral communicable diseases Contusion of left wrist Left elbow contusion Contusion of left shoulder Scalp contusion Injury of left elbow Injury of left shoulder Presence of stent in coronary artery ( 1989) Atherosclerotic heart disease of [place] coronary artery without angina pectoris Essential hypertension Influenza A Health care maintenance Falls fr (more content not included)... Normal [facility] Orthopedic Visit Reporton Orthopedic Visit Report [facility] [address] [facility] [address] [place] [address] OFFICE VISIT Date of Service: 07/05/24 MR#: [id number] Acct: [id number] Name: LAUREN ALCARAZ Rep #: [id number] : 1940 Provider: Dr. Christopher Lowery so, DO Age/Sex: 83/F Location: [facility] Status: Signed Intake Vital Signs 06/07/24 08:51 Height 4 ft 8 in Intake Visit Reasons: RIGHT KNEE Accompanied by: Is patient in pain?: No Allergies doxycycline Allergy (Mild, Verified 07/05/24 13:24) Vomiting oxycodone (From Percocet) Allergy (Mild, Verified 07/05/24 13:24) Confusion acetaminophen (From Darvocet-N) Allergy (Verified 07/05/24 13:24) Other lamotrigine (From Lamictal) Allergy (Verified 07/05/24 13:24) Lip Swelling latex Allergy (Verified 07/05/24 13:24) Rash moxifloxacin HCl (From Avelox) Allergy (Verified 07/05/24 13:24) Other propoxyphene napsylate (From Darvocet-N) Allergy (Verified 07/05/24 13:24) Other zolpidem tartrate (From Ambien) Adverse Reaction (Verified 07/05/24 13:24) Other Medications ???Medication ???Instructions ???Recorded ???Confirmed ???Type L.acidophil-L.casei-B.bifid -B.longum-FOS 1 cap PO DAILY Supplement 09/02/21 07/05/24 History 2 billion cell-50 mg capsule (Probiotic Blend) aspirin 81 mg tablet,delayed 81 mg PO DAILY 01/10/22 07/05/24 History release (Adult Aspirin Regimen) d-mannose 500 mg capsule 500 mg PO DAILY 06/07/22 07/05/24 History famotidine 10 mg tablet 10 mg PO BID 06/07/22 07/05/24 History multivitamin 1 tab PO DAILY 06/07/22 07/05/24 History mirabegron 50 mg tablet,extended 50 mg PO QHS Check with primary 01/29/23 07/05/24 History release 24 hr (Myrbetriq) doctor albuterol sulfate 2.5 mg/3 mL 2.5 mg (3 mL) inhalation Q6H PRN 04/07/23 07/05/24 Rx (0.083 %) solution for nebulization Sob /Or Wheezing #180 mL syringes BD ECLIPSE 04/11/23 07/05/24 History gabapentin 100 mg capsule 100 mg PO DAILY PRN restless 06/09/23 07/05/24 Rx leg(s) #90 caps latanoprost 0.005 % eye drops 1 drp ophthalmic (eye) DAILY 08/13/23 07/05/24 History (Xalatan) furosemide 20 mg tablet 10 mg PO DAILY PRN edema 10/08/23 07/05/24 History donepezil 5 mg tablet (Aricept) 10 mg (2 x 5 mg) PO DAILY #90 tabs 11/12/23 07/05/24 Rx nitroglycerin 0.4 mg sublingual 0.4 mg sublingual Q5-15M PRN chest 11/12/23 07/05/24 Rx tablet pain #25 tabs denosumab 60 mg/mL subcutaneous 60 mg subcut [id number] #1 mL 02/18/24 07/05/24 Rx syringe (Prolia) BD Sry/needle eclips See Rx Instructions IM .COMPLEX 02/23/24 07/05/24 Rx #12 ea azelastine 137 mcg (0.1 %) nasal 2 spray intranasal 03/16/24 07/05/24 History spray cetirizine 10 mg capsule (Zyrtec) 10 mg PO DAILY PRN allergy symptoms 03/16/24 07/05/24 History fluticasone propionate 50 1 spray intranasal DAILY 03/16/24 07/05/24 History mcg/actuation nasal spray,suspension (Allergy Relief (fluticasone)) cyanocobalamin (vitamin B-12) 1,000 mcg IM QMONTH #10 mL 04/01/24 07/05/24 Rx 1,000 mcg/mL injection solution PEP device #1 ea 04/06/24 07/05/24 Rx apixaban 5 mg tablet (Eliquis) 5 mg PO BID #180 tabs 06/08/24 07/05/24 Rx atorvastatin 40 mg tablet See Rx Instructions .Route 06/08/24 07/05/24 Rx .COMPLEX #90 tabs donepezil 10 mg tablet 10 mg PO DAILY #90 tabs 06/08/24 07/05/24 Rx lacosamide 100 mg tablet (Vimpat) 100 mg PO BID #180 tabs 06/08/24 07/05/24 Rx levothyroxine 50 mcg tablet 50 mcg PO DAILY Thyroid #90 tabs 06/08/24 07/05/24 Rx memantine 10 mg tablet 10 mg PO BID Alzheimer's #180 tabs 06/08/24 07/05/24 Rx pramipexole 0.5 mg tablet 0.5 mg PO BID #180 tabs 06/08/24 07/05/24 Rx vortioxetine 20 mg tablet 20 mg PO DAILY DEPRESSION #90 tabs 06/08/24 07/05/24 Rx (Trintellix) Have you fallen in the past year?: Yes [facility] Medical History Open wound of right lower extremity Contusion of right foot Kyphoscoliosis deformity of spine Bee sting Lumbar contusion Contusion of thoracic wall Pain of left lower extremity Contact with and (suspected) exposure to other viral communicable diseases Contusion of left wrist Left elbow contusion Contusion of left shoulder Scalp contusion Injury of left elbow Injury of left shoulder Presence of stent in coronary artery ( 1989) Atherosclerotic heart disease of [place] coronary artery without angina pectoris Essential hypertension Influenza A Health care maintenance Falls frequently Cancer Depression Dementia Walker as ambulation aid Arthritis Bladder disease Low iron DVT (deep venous thrombosis) High cholesterol Restless legs Back pain TIA (transient ischemic attack) Seizures Difficulty swallowing Gastric reflux Non-smoker Asthma Shortness of breath on exertion (more content not included)... Normal [facility] CNOVon 07-01-2024 CNOV Normal [facility] CT ABD/PEL W IVCONon 024 CT ABD/PEL W IVCON Normal [facility] CT Abdomen and Pelvis W cont rast Chava 06-24-2024 IMPRESSION: Large hiatal hernia. Dilated pancreatic duct and marked dilation of the common bile duct to the level of the ampulla. Possible filling defect within the distal CBD. Consider MRCP to exclude ampullary mass/choledocholithiasis. Synthetic Staple Extruder: ARTHUR Transcribe Date/Time: Jun 24 2024 4:00P Dictated by : STEPHANIE VIZCAINO MD This examination was interpreted and the report reviewed and electronically signed by: STEPHANIE VIZCAINO MD on Jun 24 2024 4:14PM [facility] DIVISION OF RADIOLOGY * * *Final Report* * * DATE OF EXAM: Jun 24 2024 3:12PM [facility] 0530 - CT ABD/PEL W IVCON / PROCEDURE REASON: Hiatal hernia * * * * Physician Interpretation * * * * EXAMINATION: CT ABDOMEN AND PELVIS WITH IV CONTRAST CLINICAL HISTORY: History of breast cancer. Hiatal hernia. TECHNIQUE: CT of the abdomen and pelvis was performed using standard technique, scanning from just above the dome of the diaphragm to the symphysis pubis. MQ: CTAP_3 Contrast: IV: 91 ml of Omnipaque 350 : ml of CT Radiation dose: Integrated Dose-length product (DLP) for this visit = 360 mGy*cm. CT Dose Reduction Employed: Automated exposure control(AEC) and iterative recon COMPARISON: None. RESULT: Liver: Subcentimeter hypodensities, too small to further. Biliary: Mild central intrahepatic biliary ductal dilation. March dilation of the common bile duct up to 2.8 cm. Possible filling defect within the distal CBD (8:43). Gallbladder is distended. Spleen: No mass. No splenomegaly. Pancreas: Pancreatic duct is dilated up to 8 mm to the level of the ampulla. A discrete mass is not identified. Adrenals: No mass. Kidneys: No mass, calculus or hydronephrosis. GI tract: Large hiatal hernia. No dilation or wall thickening. Diverticulosis. Lymph nodes: No abdominal or pelvic lymphadenopathy. Mesentery/Peritoneum: No ascites or mass. Retroperitoneum: No mass. Vasculature: - Abdominal aorta and iliac arteries: Atherosclerotic calcifications without aneurysm. - Celiac and SMA: Atherosclerotic calcifications at the origins. - Portal venous system (SMV, splenic vein, portal vein and branches): Patent. - Hepatic veins: Patent. Pelvis: No mass, ascites or fluid collection. Hysterectomy. Prior right inguinal hernia repair with a small amount of fluid in the right inguinal canal. Bones/Soft Tissues: Degenerative changes. Multiple remote right posterior rib fracture deformities. Multilevel vertebral body compression deformities, status post L2-4 vertebral body augmentation. Lower thorax: A chest CT performed will be reported separately. Localizer images: No additional findings. DIVISION OF RADIOLOGY Provider, Alexis Gallegos - 06/24/2024 * * *Final Report* * * DATE OF EXAM: Jun 24 2024 3:12PM [facility] 0530 - CT ABD/PEL W IVCON / PROCEDURE REASON: Hiatal hernia * * * * Physician Interpretation * * * * EXAMINATION: CT ABDOMEN AND PELVIS WITH IV CONTRAST CLINICAL HISTORY: History of breast cancer. Hiatal hernia. TECHNIQUE: CT of the abdomen and pelvis was performed using standard technique, scanning from just above the dome of the diaphragm to the symphysis pubis. MQ: CTAP_3 Contrast: IV: 91 ml of Omnipaque 350 : ml of CT Radiation dose: Integrated Dose-length product (DLP) for this visit = 360 mGy*cm. CT Dose Reduction Employed: Automated exposure control(AEC) and iterative recon COMPARISON: None. RESULT: Liver: Subcentimeter hypodensities, too small to further. Biliary: Mild central intrahepatic biliary ductal dilation. March dilation of the common bile duct up to 2.8 cm. Possible filling defect within the distal CBD (8:43). Gallbladder is distended. Spleen: No mass. No splenomegaly. Pancreas: Pancreatic duct is dilated up to 8 mm to the level of the ampulla. A discrete mass is not identified. Adrenals: No mass. Kidneys: No mass, calculus or hydronephrosis. GI tract: Large hiatal hernia. No dilation or wall thickening. Diverticulosis. Lymph nodes: No abdominal or pelvic lymphadenopathy. Mesentery/Peritoneum: No ascites or mass. Retroperitoneum: No mass. Vasculature: - Abdominal aorta and iliac arteries: Atherosclerotic calcifications without aneurysm. - Celiac and SMA: Atherosclerotic calcifications at the origins. - Portal venous system (SMV, splenic vein, portal vein and branches): Patent. - Hepatic veins: Patent. Pelvis: No mass, ascites or fluid collection. Hysterectomy. Prior right inguinal hernia repair with a small amount of fluid in the right inguinal canal. Bones/Soft Tissues: Degenerative changes. Multiple remote right posterior rib fracture deformities. Multilevel vertebral body compression deformities, status post L2-4 vertebral body augmentation. Lower thorax: A chest CT performed will be reported separately. Localizer images: No additional findings. IMPRESSION IMPRESSION: Large hiatal hernia. Dilated pancreatic duct and marked dilation of the common bile duct to the level of the ampulla. Possible filling defect within the distal CBD. Consider MRCP to exclude ampullary mass/choledocholithiasis. Synthetic Staple Extruder: ARTHUR Transcribe Date/Time: Jun 24 2024 4:00P Dictated by : STEPHANIE VIZCAINO MD This examination was interpreted and the report reviewed and electronically signed by: STEPHANIE VIZCAINO MD on Jun 24 2024 4:14PM EST [facility] Radiology Study observation (narrative) [facility] CT Abdomen and Pelvis W cont rast IVOrdered By: [facility] Provider on 06-24-[address] [facility] [address] CHEST W IVCONon CT CHEST W IVCON Normal [facility] Inital Evaluation (1) - PTon 06-24-2024 Inital Evaluation (1) - PT [facility] Physical [facility] [address] [place] [address] [address] [place] [address] / REHABILITATION SERVICES INITIAL EVALUATION MR#: [id number] Acct: [id number] Name: LAUREN ALCARAZ Rep #: [id number] : 1940 83 From: Gunnar Graves PT, ATC Referring Dr.: Dr. Christopher Turk DO Status: R EG RCR Insurance: MEDICARE PART A B [facility] [place] [id number] Patient's Visit Information Visit Information Visit Information: LAUREN ALCARAZ is a 83 year old F referred to Physical Therapy by Dr. Christopher Turk DO with a diagnosis of R knee pain. Date of Evaluation: 06/23/24 Physical Therapist: Gunnar Graves, PT, ATC Visit Plan Frequency: 2x /Week Duration: 6-8 weeks Plan: B LE strengthening, balance and proprio, gait training, stair negotitation, bike, and HEP Subjective Subjective: Pt reports her R knee has been sore for 3 months. Pt reports her R knee will buckle on her. Pt notes this promotes significant instability which has resulted in several falls. Pt reports she ambulates with a rollator now secondary to the instability of R LE. Pt reports she has been exercising with [facility] for half hour sessions. Pt reports she has numbness in both of her feet which she attributes to neuropathy. Pt reports she has no stairs at home, but has used the stairs here at [facility]. Pt reports she can negotiate stairs reciprocally with the use of 2 handrails. Pt reports prolonged standing is very difficult for her secondary to pain. Pt reports her R knee pain increases to 3/10 at worst. Pain R knee: Pain Intensity (Out of 10): 3 Pain Intensity Range: 3 Objective Objective: TU sec MMT: L knee flex= 32, ext= 29 #F; R knee flex= 18, ext= 22 Neuro: B LE sensation is WNL to light touch. Gait: Pt is able to ambulate 1000 feet until needing to rest secondary to fatigue. Requires rollator. Balance/Special Test Scores Lower Extremity Functional Score: 35 Goals Goal 1:: Perform the tug test in under 15 seconds to aid with community mobility Goal Time Frame: 6-8 Weeks Goal 2:: Pt will be able to ambulate 1000' with no AD to aid with mobility at home Goal Time Frame: 6-8 Weeks Goal 3:: Increase R LE strength x 10#F to aid with stair negotiation Goal Time Frame: 6-8 Weeks Goal 4:: I with HEP Goal Time Frame: 6-8 Weeks Rehabilitation Potential Physical Therapy Diagnosis: Pt has R knee pain, weakness, and difficulty with prolonged ambulation Rehabilitation Potential: Good Anticipated Interventions Patient/Client Instruction: Educate patient on: Condition and Plan of Care For the Purpose of:: To facilitate caregiver knowledge Therapeutic Exercise to Include: Strength training, Endurance training, Balance training, Postural training, Gait and locomotor training and Dynamic Lumbar Stabilization For the Purpose of:: To decrease pain, To improve muscle performance and motor function and To increase tolerance to activity/condition/position Text: Thank you for the opportunity to evaluate your patient. For Medicare and Medicare HMO plans, please review the plan of care and approve it. It will need to be FAXED BACK to us at [phone] for Medicare purposes. For Medicare only, by signing this I certify the plan of care. Please let me know if there are questions or concerns regarding this plan of care. Physician Signature: Date: 06/24/24 1124 CC: Dr. Christopher Turk DO; Dr. Chema Perry MD [facility] Signed Normal [facility] CREATININE BLDon 06-23-2024 Creatinine [Mass/Vol] 0.84 mg/dL Normal 0.58-0.96 [facility] Comment on above: Order Comment: Speci men Type: BLOOD SPECIMENOrdering Facility: [facility] Address: [address] [place] [address] Performed By: #### C RET1 ####[facility] [id number] [place] [address] [place] Creatinine and Glomerular filtration rate.predicted panel (S/P/Bld) 70 mL/min/1.73m??? Normal >=60 [facility] Comment on above: Order Comment: Speci men Type: BLOOD SPECIMENOrdering Facility: [facility] Address: [address] [place] [address] Result Comment: Brandy mated Glomerular Filtration Rate (eGFR) is calculated using the 2020 CKD-EPI creatinine equation. This equation utilizes serum creatinine, sex, and age as parameters. The creatinine assay has traceable calibration to isotope dilution-mass spectrometry. Refer to KDIGO guidelines for clinical interpretation. In patients with unstable renal function, e.g. those with acute kidney injury, the eGFR may not accurately reflect actual GFR. Performed By: #### C RET1 ####[facility] [id number] [place] [address] [place] CNCNPATEDon 06-18-2024 CNCNPATED Normal [facility] CNOVon 06-18-2024 CNOV Normal [facility] HISTORY PHYSICALon HISTORY PHYSICAL Normal [facility] CNPNon 06-17-2024 CNPN Normal [facility] Knee 4 or More Viewson 06-16 Knee 4 or More Views [facility] [address] [place] [address] Knee 4 or More Views MR#: [id number] Acct: [id number] Name: LAUREN ALCARAZ Rep #: [id number] : 1940 F 83 From: Bright Sarmiento MD PCP: Dr. Chema Perry MD Status: DEP AMB Study: Knee 4 or More Views Date of Exam: 06/16/24 Exam# [id number] Ordering Dr: Christopher Turk DO [id number] STUDY: X-RAY - RIGHT KNEE REASON FOR EXAM: Female, 83 years old. Pain. TECHNIQUE: 4 views of the right knee. COMPARISON: None. FINDINGS: Normal visualized distal femur. Normal visualized proximal tibia and fibula. Normal proximal tibiofibular articulation. There is no demonstrated fracture. Normal medial femorotibial compartment. There is mild degenerative arthrosis of the lateral femorotibial compartment. Normal patellofemoral articulation. The soft tissue structures are unremarkable. RAD/Knee 4 or More Views IMPRESSION: Mild degenerative arthrosis of the lateral femorotibial compartment. No demonstrated fracture. Electronically Signed: Bright Sarmiento MD at 15:34 EDT Reading Location ID and State: [facility] / [place] , Service support , CC: Dr. Christopher Turk DO; Dr. Chema Perry MD Synthetic Staple Extruder: Signed Normal [facility] Orthopedic Visit Reporton Orthopedic Visit Report [facility] [address] [place] [address] [address] [place] [address] OFFICE VISIT Date of Service: 06/16/24 MR#: [id number] Acct: [id number] Name: LAUREN ALCARAZ Rep #: [id number] : 1940 Provider: Dr. Christopher chan DO Age/Sex: 83/F Location: [facility] Status: Signed with Addenda ADDENDUM by Dr. Christopher Turk DO on 07/12/24 at 1029 Assessment and Plan Assessment and Plan (1) Chronic instability of knee, left knee: Status: Acute Plan: She does have some lateral gapping with varus stress secondary to joint space narrowing Orders: Orders Knee 4 or More Views 06/16/24 M25.561 - Pain in right knee Referrals Physical Therapy Referral M17.11 - Unilateral primary osteoarthritis, right knee 07/12/24 1029 Date Christopher Turk DO cc: * Signed Intake Vital Signs 05/04/24 16:04 06/07/24 08:51 Height 4 ft 8 in 4 ft 8 in Intake Visit Reasons: RIGHT KNEE Accompanied by: Is patient in pain?: Yes (Discomfort ) Pain scale (1-10): 6 Allergies doxycycline Allergy (Mild, Verified 06/16/24 14:58) Vomiting oxycodone (From Percocet) Allergy (Mild, Verified 06/16/24 14:58) Confusion acetaminophen (From Darvocet-N) Allergy (Verified 06/16/24 14:58) Other lamotrigine (From Lamictal) Allergy (Verified 06/16/24 14:58) Lip Swelling latex Allergy (Verified 06/16/24 14:58) Rash moxifloxacin HCl (From Avelox) Allergy (Verified 06/16/24 14:58) Other propoxyphene napsylate (From Darvocet-N) Allergy (Verified 06/16/24 14:58) Other zolpidem tartrate (From Ambien) Adverse Reaction (Verified 06/16/24 14:58) Other Medications ???Medication ???Instructions ???Recorded ???Confirmed ???Type L.acidophil-L.casei-B.bifid -B.longum-FOS 1 cap PO DAILY Supplement 09/02/21 06/16/24 History 2 billion cell-50 mg capsule (Probiotic Blend) aspirin 81 mg tablet,delayed 81 mg PO DAILY 01/10/22 06/16/24 History release (Adult Aspirin Regimen) d-mannose 500 mg capsule 500 mg PO DAILY 06/07/22 06/16/24 History famotidine 10 mg tablet 10 mg PO BID 06/07/22 06/16/24 History multivitamin 1 tab PO DAILY 06/07/22 06/16/24 History mirabegron 50 mg tablet,extended 50 mg PO QHS Check with primary 01/29/23 06/16/24 History release 24 hr (Myrbetriq) doctor albuterol sulfate 2.5 mg/3 mL 2.5 mg (3 mL) inhalation Q6H PRN 04/07/23 06/16/24 Rx (0.083 %) solution for nebulization Sob /Or Wheezing #180 mL syringes BD ECLIPSE 04/11/23 06/16/24 History gabapentin 100 mg capsule 100 mg PO DAILY PRN restless 06/09/23 06/16/24 Rx leg(s) #90 caps latanoprost 0.005 % eye drops 1 drp ophthalmic (eye) DAILY 08/13/23 06/16/24 History (Xalatan) furosemide 20 mg tablet 10 mg PO DAILY PRN edema 10/08/23 06/16/24 History donepezil 5 mg tablet (Aricept) 10 mg (2 x 5 mg) PO DAILY #90 tabs 11/12/23 06/16/24 Rx nitroglycerin 0.4 mg sublingual 0.4 mg sublingual Q5-15M PRN chest 11/12/23 06/16/24 Rx tablet pain #25 tabs denosumab 60 mg/mL subcutaneous 60 mg subcut R1CGEULY #1 mL 02/18/24 06/16/24 Rx syringe (Prolia) BD Sry/needle eclips See Rx Instructions IM .COMPLEX 02/23/24 06/16/24 Rx #12 ea azelastine 137 mcg (0.1 %) nasal 2 spray intranasal 03/16/24 06/16/24 History spray cetirizine 10 mg capsule (Zyrtec) 10 mg PO DAILY PRN allergy symptoms 03/16/24 06/16/24 History fluticasone propionate 50 1 spray intranasal DAILY 03/16/24 06/16/24 History mcg/actuation nasal spray,suspension (Allergy Relief (fluticasone)) cyanocobalamin (vitamin B-12) 1,000 mcg IM QMONTH #10 mL 04/01/24 06/16/24 Rx 1,000 mcg/mL injection solution PEP device #1 ea 04/06/24 06/16/24 Rx apixaban 5 mg tablet (Eliquis) 5 mg PO BID #180 tabs 06/08/24 06/16/24 Rx atorvastatin 40 mg tablet See Rx Instructions .Route 06/08/24 06/16/24 Rx .COMPLEX #90 tabs donepezil 10 mg tablet 10 mg PO DAILY #90 tabs 06/08/24 06/16/24 Rx lacosamide 100 mg tablet (Vimpat) 100 mg PO BID #180 tabs 06/08/24 06/16/24 Rx levothyroxine 50 mcg tablet 50 mcg PO DAILY Thyroid #90 tabs 06/08/24 06/16/24 Rx memantine 10 mg tablet 10 mg PO BID Alzheimer's #180 tabs 06/08/24 06/16/24 Rx pramipexole 0.5 mg tablet 0.5 mg PO BID #180 tabs 06/08/24 06/16/24 Rx vortioxetine 20 mg tablet 20 mg PO DAILY DEPRESSION #90 tabs 06/08/24 06/16/24 Rx (Trintellix) Have you fallen in the past year?: Yes [facility] Medical History Open wound of right lower extremity Contusion of right foot Kyphoscoliosis deformity of spine Bee sting Lumbar contusion Contusion of thoracic wall Pain of left lower extremity Contact with and (suspected) exposure to other viral communicable diseases Contusion of left wrist Left (more content not included)... Normal [facility] Brain/Head without Contrasto n 06-07-2024 Brain/Head without Contrast [facility] Imaging Services [address] [place], [place] [id number] Brain/Head without Contrast MR#: [id number] Acct: [id number] Name: WAQASLAURENMILLIE HDZ Rep #: [id number] : 1940 F 83 From: Chad Harper MD PCP: Dr. Chema Perry MD Status: REG ER Study: Brain/Head without Contrast Date of Exam: 05/19 09/10 Exam# [id number] Ordering Dr: Susan Emery DO [id number] STUDY: CT BRAIN WITHOUT CONTRAST REASON FOR EXAM: Female, 83 years old. Headache after trauma RADIATION DOSAGE (If Supplied By Facility): CTDIvol = ( 44.99 ) mGy, DLP = ( 829.85 ) mGycm TECHNIQUE: Transaxial CT imaging of the brain was performed without administration of intravenous contrast material. Individualized dose optimization techniques were used for this CT. COMPARISON: MR brain from 06/04/2023 FINDINGS: Normal soft tissue structures. Normal calvarium. There is mild cerebral atrophy with widening of the extra-axial spaces and ventricular dilatation. Normal white matter tracts of the cerebral hemispheres. Normal basal ganglia and thalami. Normal brainstem. Normal cerebellum. There is no intracranial hemorrhage. There are no findings of an acute ischemic infarction. Normal visualized paranasal sinuses. CT/Brain/Head without Contrast IMPRESSION: Chronic involutional changes of the brain. No acute hemorrhage. Electronically Signed: Darin Harper MD at 10:17 EDT , CC: Dr. Susan Emery DO; Dr. Chema Perry MD Synthetic Staple Extruder: Signed Normal [facility] Emergency Department Summary on 06-07-2024 Emergency Department Summary [facility] Medical Records Department [address] [place] [id number] Emergency Department Summary 06/07/24 MR#: [id number] Acct: [id number] Name: LAUREN ALCARAZ Rep #: [id number] : 1940 83 From: uSsan Emery DO PCP: Dr. Chema Perry MD Status:DEP ER Location: ED HPI History of Present Illness Chief Complaint: Fall Informant: patient and spouse/S.O. Narrative Narrative: 83-year-old female presenting to the emergency department chief complaint of falls. Patient states that she has had problems recently with her legs buckling causing her to fall. Yesterday this happened 3 times. She has an upcoming appointment with orthopedics to discuss this buckling which she discussed with her primary care doctor. She states that during the fall she struck her head on the ground and notes soreness on the top of her head. She notes soreness in the posterior aspect of her left shoulder onto the scapular spine. She also notes that she has chronic low back pain and sees pain management. She states that she believes she twisted her low back during the fall as it is more sore today. She denies any radicular symptoms. No loss of consciousness. No external bleeding. She is on apixaban. She denies neck pain. [facility] Medical History Open wound of right lower extremity Contusion of right foot Kyphoscoliosis deformity of spine Bee sting Lumbar contusion Contusion of thoracic wall Pain of left lower extremity Contact with and (suspected) exposure to other viral communicable diseases Contusion of left wrist Left elbow contusion Contusion of left shoulder Scalp contusion Injury of left elbow Injury of left shoulder Presence of stent in coronary artery ( 1989) Atherosclerotic heart disease of [place] coronary artery without angina pectoris Essential hypertension Influenza A Health care maintenance Falls frequently Cancer Depression Dementia Walker as ambulation aid Arthritis Bladder disease Low iron DVT (deep venous thrombosis) High cholesterol Restless legs Back pain TIA (transient ischemic attack) Seizures Difficulty swallowing Gastric reflux Non-smoker Asthma Shortness of breath on exertion Hx of echocardiogram History of stress test Hypertension Cardiology follow-up encounter History of heart attack Hypertension aquired autoimmune encephalopathy h/o back surgery Heart disease Dementia Partial complex seizures Home Medications ???Medication ???Instructions ???Recorded ???Last Taken ???Type L.acidophil-L.casei-B.bifid -B.longum-FOS 1 cap PO DAILY Supplement 09/02/21 10/05/21 History 2 billion cell-50 mg capsule (Probiotic Blend) aspirin 81 mg tablet,delayed 81 mg PO DAILY 01/10/22 Unknown History release (Adult Aspirin Regimen) d-mannose 500 mg capsule 500 mg PO DAILY 06/07/22 Unknown History famotidine 10 mg tablet 10 mg PO BID 06/07/22 Unknown History multivitamin 1 tab PO DAILY 06/07/22 Unknown History mirabegron 50 mg tablet,extended 50 mg PO QHS Check with primary 01/29/23 Unknown History release 24 hr (Myrbetriq) doctor albuterol sulfate 2.5 mg/3 mL 2.5 mg (3 mL) inhalation Q6H PRN 04/07/23 Unknown Rx (0.083 %) solution for nebulization Sob /Or Wheezing #180 mL syringes BD ECLIPSE 04/11/23 Unknown History gabapentin 100 mg capsule 100 mg PO DAILY PRN restless 06/09/23 Unknown Rx leg(s) #90 caps latanoprost 0.005 % eye drops 1 drp ophthalmic (eye) DAILY 08/13/23 Unknown History (Xalatan) memantine 10 mg tablet 10 mg PO BID Alzheimer's #180 tabs 09/18/23 Unknown Rx furosemide 20 mg tablet 10 mg PO DAILY PRN edema 10/08/23 Unknown History levothyroxine 50 mcg tablet 50 mcg PO DAILY Thyroid #90 tabs 10/15/23 Unknown Rx donepezil 5 mg tablet (Aricept) 10 mg (2 x 5 mg) PO DAILY #90 tabs 11/12/23 Unknown Rx nitroglycerin 0.4 mg sublingual 0.4 mg sublingual Q5-15M PRN chest 11/12/23 Unknown Rx tablet pain #25 tabs apixaban 5 mg tablet (Eliquis) 5 mg PO BID #180 tabs 12/08/23 Unknown Rx denosumab 60 mg/mL subcutaneous 60 mg subcut [id number] #1 mL 02/18/24 Unknown Rx syringe (Prolia) BD Sry/needle eclips See Rx Instructions IM .COMPLEX 02/23/24 Unknown Rx #12 ea azelastine 137 mcg (0.1 %) nasal 2 spray intranasal 03/16/24 Unknown History spray cetirizine 10 mg capsule (Zyrtec) 10 mg PO DAILY PRN allergy symptoms 03/16/24 Unknown History fluticasone propionate 50 1 spray intranasal DAILY 03/16/24 Unknown History mcg/actuation nasal spray,suspension (Allergy Relief (fluticasone)) cyanocobalamin (vitamin B-12) 1,000 mcg IM QMONTH #10 mL 04/01/24 Unknown Rx 1,000 mcg/mL injection solution PEP device #1 ea 04/06/24 Unknown Rx pramipexole 0.5 mg tablet 0.5 mg PO BID #180 tabs 04/16/24 Unknown Rx vor (more content not included)... Normal [facility] Shoulder min 2 Viewson 06-07 Shoulder min 2 Views [facility] Imaging Services [address] [place] [id number] Shoulder min 2 Views MR#: [id number] Acct: [id number] Name: LAUREN ALCARAZ Rep #: [id number] : 1940 F 83 From: Chad Harper MD PCP: Dr. Chema Perry MD Status: REG ER Study: Shoulder min 2 Views Date of Exam: 06/07/24 Exam# [id number] Ordering Dr: Susan Emery DO [id number] STUDY: X-RAY - LEFT SHOULDER REASON FOR EXAM: Female, 83 years old female, pain, decreased range of motion TECHNIQUE: 2 view(s) of the shoulder. COMPARISON: None. FINDINGS: There is moderate degenerative arthrosis of the glenohumeral articulation. There is degenerative arthrosis of the acromioclavicular joint without inferior osseous spur formation. Normal acromion. Normal humeral head and visualized proximal humerus. The soft tissue structures are unremarkable. Normal visualized pulmonary apex. RAD/Shoulder min 2 Views IMPRESSION: Degenerative arthrosis, no demonstrated fracture or suspicious osseous lesion Electronically Signed: Darin Harper MD at 9:45 EDT Reading Location ID and State: [facility] / [place] , Service support , CC: Dr. Susan Emery, DO; Dr. Chema Perry MD Synthetic Staple Extruder: Signed Normal [facility] Office Visit Reporton 2023 Office Visit Report [facility] [address] [place] [address] OFFICE VISIT Date of Service: 06/05/24 MR#: [id number] Acct: [id number] Patient: LAUREN ALCARAZ Rep #: [id number] : 1940 Provider: ERIK Mckenna Age/Sex: 83/F Location: [facility] Status: Signed Intake Vital Signs 05/04/24 16:04 06/05/24 08:18 Height 4 ft 8 in Weight: 103 lb BMI 23.1 BP 130/60 H Blood Pressure Location Lt brachial Respiration 16 16 Pulse 72 78 Pulse Source Monitor NIBP Temp 98.2 F 97.9 F Temp Source Temporal Oral Pulse Oximetry (%) 93 94 Oxygen Delivery Method room air room air Intake Visit Reasons: RASH ON BUTTOCKS Chief Complaint: rash Pulmonary Function Technologist Required: No Is patient in pain?: No Allergies doxycycline Allergy (Mild, Verified 06/05/24 08:20) Vomiting oxycodone (From Percocet) Allergy (Mild, Verified 06/05/24 08:20) Confusion acetaminophen (From Darvocet-N) Allergy (Verified 06/05/24 08:20) Other lamotrigine (From Lamictal) Allergy (Verified 06/05/24 08:20) Lip Swelling latex Allergy (Verified 06/05/24 08:20) Rash moxifloxacin HCl (From Avelox) Allergy (Verified 06/05/24 08:20) Other propoxyphene napsylate (From Darvocet-N) Allergy (Verified 06/05/24 08:20) Other zolpidem tartrate (From Ambien) Adverse Reaction (Verified 06/05/24 08:20) Other Medications ???Medication ???Instructions ???Recorded ???Confirmed ???Type L.acidophil-L.casei-B.bifid -B.longum-FOS 1 cap PO DAILY Supplement 09/02/21 04/22/24 History 2 billion cell-50 mg capsule (Probiotic Blend) aspirin 81 mg tablet,delayed 81 mg PO DAILY 01/10/22 04/22/24 History release (Adult Aspirin Regimen) d-mannose 500 mg capsule 500 mg PO DAILY 06/07/22 04/22/24 History famotidine 10 mg tablet 10 mg PO BID 06/07/22 04/22/24 History multivitamin 1 tab PO DAILY 06/07/22 04/22/24 History mirabegron 50 mg tablet,extended 50 mg PO QHS Check with primary 01/29/23 04/22/24 History release 24 hr (Myrbetriq) doctor albuterol sulfate 2.5 mg/3 mL 2.5 mg (3 mL) inhalation Q6H PRN 04/07/23 04/22/24 Rx (0.083 %) solution for nebulization Sob /Or Wheezing #180 mL syringes BD ECLIPSE 04/11/23 04/22/24 History gabapentin 100 mg capsule 100 mg PO DAILY PRN restless 06/09/23 04/22/24 Rx leg(s) #90 caps latanoprost 0.005 % eye drops 1 drp ophthalmic (eye) DAILY 08/13/23 04/22/24 History (Xalatan) memantine 10 mg tablet 10 mg PO BID Alzheimer's #180 tabs 09/18/23 04/22/24 Rx furosemide 20 mg tablet 10 mg PO DAILY PRN 10/08/23 04/22/24 History levothyroxine 50 mcg tablet 50 mcg PO DAILY Thyroid #90 tabs 10/15/23 04/22/24 Rx donepezil 5 mg tablet (Aricept) 10 mg (2 x 5 mg) PO DAILY #90 tabs 11/12/23 04/22/24 Rx nitroglycerin 0.4 mg sublingual 0.4 mg sublingual Q5-15M PRN chest 11/12/23 04/22/24 Rx tablet pain #25 tabs apixaban 5 mg tablet (Eliquis) 5 mg PO BID #180 tabs 12/08/23 04/22/24 Rx denosumab 60 mg/mL subcutaneous 60 mg subcut [id number] #1 mL 02/18/24 04/22/24 Rx syringe (Prolia) BD Sry/needle eclips See Rx Instructions IM .COMPLEX 02/23/24 04/22/24 Rx #12 ea azelastine 137 mcg (0.1 %) nasal intranasal 03/16/24 04/22/24 History spray cetirizine 10 mg capsule (Zyrtec) 10 mg PO DAILY PRN 03/16/24 04/22/24 History diazepam 2 mg tablet (Valium) 2 mg PO QHS PRN anxiety #1 TAB 03/16/24 04/22/24 Rx fluticasone propionate 50 1 spray intranasal DAILY 03/16/24 04/22/24 History mcg/actuation nasal spray,suspension (Allergy Relief (fluticasone)) cyanocobalamin (vitamin B-12) 1,000 mcg IM QMONTH #10 mL 04/01/24 04/22/24 Rx 1,000 mcg/mL injection solution PEP device #1 ea 04/06/24 04/22/24 Rx pramipexole 0.5 mg tablet 0.5 mg PO BID #180 tabs 04/16/24 04/22/24 Rx vortioxetine 20 mg tablet 20 mg PO DAILY DEPRESSION #90 tabs 04/16/24 04/22/24 Rx (Trintellix) lacosamide 100 mg tablet (Vimpat) 100 mg PO BID #180 tabs 04/22/24 04/22/24 Rx valacyclovir 500 mg tablet 1,000 mg (2 x 500 mg) PO Q8 #42 04/23/24 Rx TABLETS cephalexin 500 mg capsule 500 mg PO TID #21 caps 05/04/24 05/04/24 Rx atorvastatin 40 mg tablet See Rx Instructions .Route 05/17/24 Rx .COMPLEX #90 tabs sulfamethoxazole 800 1 tab PO BID 10 days #20 tabs 06/05/24 06/05/24 Rx mg-trimethoprim 160 mg tablet (Bactrim DS) Is last menstrual period known: No Post menopausal: Yes Patient : No Have you fallen in the past year?: No Nurse's Note: pustule rash x2 areas on buttocks x 24 hours. c/o itching to same. states hx of same, used some kind of cream which helped [facility] Medical History (Updated 06/05/24 @ 08:39 by Jerri VALENCIA, PA) Open wound of right lower extremity Contusion of right foot Kyphoscoliosis deformity of spine Bee sting Lumbar contusion Contusion of thoracic wall Pain of left lower extremity Co (more content not included)... Normal [facility] CNOVon 05-17-2024 CNOV Normal [facility] Urgent Care Visit Reporton 0 05-04-2024 Urgent Care Visit Report [facility] [address], [address] [place] [address] OFFICE VISIT Date of Service: 05/04/24 MR#: [id number] Acct: [id number] Name: LAUREN ALCARAZ Rep #: [id number] : 1940 Provider: ERIK Dodson Age/Sex: 83/F Location: [facility] Status: Signed Intake Vital Signs 04/22/24 13:06 05/04/24 13:38 05/04/24 16:04 Height 4 ft 8 in 4 ft 8 in 4 ft 8 in Weight: 105 lb 103 lb BMI 23.5 23.1 BP 127/65 H Blood Pressure Location Lt brachial Position Sitting Respiration 16 Pulse 70 72 Pulse Source Monitor Monitor Temp 98.6 F 98.2 F Temp Source Temporal Temporal Pulse Oximetry (%) 91 93 Oxygen Delivery Method room air room air Intake Visit Reasons: WHEEPING SORE ON R LEG Chief Complaint: SEEPING WOUND ON RT LOWER EXTREMITY Pulmonary Function Technologist Required: No Accompanied by: Is patient in pain?: No Allergies doxycycline Allergy (Mild, Verified 05/04/24 16:05) Vomiting oxycodone (From Percocet) Allergy (Mild, Verified 05/04/24 16:05) Confusion acetaminophen (From Darvocet-N) Allergy (Verified 05/04/24 16:05) Other lamotrigine (From Lamictal) Allergy (Verified 05/04/24 16:05) Lip Swelling latex Allergy (Verified 05/04/24 16:05) Rash moxifloxacin HCl (From Avelox) Allergy (Verified 05/04/24 16:05) Other propoxyphene napsylate (From Darvocet-N) Allergy (Verified 05/04/24 16:05) Other zolpidem tartrate (From Ambien) Adverse Reaction (Verified 05/04/24 16:05) Other Medications ???Medication ???Instructions ???Recorded ???Confirmed ???Type L.acidophil-L.casei-B.bifid -B.longum-FOS 1 cap PO DAILY Supplement 09/02/21 04/22/24 History 2 billion cell-50 mg capsule (Probiotic Blend) aspirin 81 mg tablet,delayed 81 mg PO DAILY 01/10/22 04/22/24 History release (Adult Aspirin Regimen) d-mannose 500 mg capsule 500 mg PO DAILY 06/07/22 04/22/24 History famotidine 10 mg tablet 10 mg PO BID 06/07/22 04/22/24 History multivitamin 1 tab PO DAILY 06/07/22 04/22/24 History mirabegron 50 mg tablet,extended 50 mg PO QHS Check with primary 01/29/23 04/22/24 History release 24 hr (Myrbetriq) doctor albuterol sulfate 2.5 mg/3 mL 2.5 mg (3 mL) inhalation Q6H PRN 04/07/23 04/22/24 Rx (0.083 %) solution for nebulization Sob /Or Wheezing #180 mL syringes BD ECLIPSE 04/11/23 04/22/24 History gabapentin 100 mg capsule 100 mg PO DAILY PRN restless 06/09/23 04/22/24 Rx leg(s) #90 caps atorvastatin 40 mg tablet See Rx Instructions .Route 07/28/23 04/22/24 Rx .COMPLEX #90 tabs latanoprost 0.005 % eye drops 1 drp ophthalmic (eye) DAILY 08/13/23 04/22/24 History (Xalatan) memantine 10 mg tablet 10 mg PO BID Alzheimer's #180 tabs 09/18/23 04/22/24 Rx furosemide 20 mg tablet 10 mg PO DAILY PRN 10/08/23 04/22/24 History levothyroxine 50 mcg tablet 50 mcg PO DAILY Thyroid #90 tabs 10/15/23 04/22/24 Rx donepezil 5 mg tablet (Aricept) 10 mg (2 x 5 mg) PO DAILY #90 tabs 11/12/23 04/22/24 Rx nitroglycerin 0.4 mg sublingual 0.4 mg sublingual Q5-15M PRN chest 11/12/23 04/22/24 Rx tablet pain #25 tabs apixaban 5 mg tablet (Eliquis) 5 mg PO BID #180 tabs 12/08/23 04/22/24 Rx cyanocobalamin (vitamin B-12) 1,000 mcg IM QMONTH #10 mL 12/08/23 04/22/24 Rx 1,000 mcg/mL injection solution (Dodex) denosumab 60 mg/mL subcutaneous 60 mg subcut [id number] #1 mL 02/18/24 04/22/24 Rx syringe (Prolia) BD Sry/needle eclips See Rx Instructions IM .COMPLEX 02/23/24 04/22/24 Rx #12 ea azelastine 137 mcg (0.1 %) nasal intranasal 03/16/24 04/22/24 History spray cetirizine 10 mg capsule (Zyrtec) 10 mg PO DAILY PRN 03/16/24 04/22/24 History diazepam 2 mg tablet (Valium) 2 mg PO QHS PRN anxiety #1 TAB 03/16/24 04/22/24 Rx fluticasone propionate 50 1 spray intranasal DAILY 03/16/24 04/22/24 History mcg/actuation nasal spray,suspension (Allergy Relief (fluticasone)) cyanocobalamin (vitamin B-12) 1,000 mcg IM QMONTH #10 mL 04/01/24 04/22/24 Rx 1,000 mcg/mL injection solution PEP device #1 ea 04/06/24 04/22/24 Rx pramipexole 0.5 mg tablet 0.5 mg PO BID #180 tabs 04/16/24 04/22/24 Rx vortioxetine 20 mg tablet 20 mg PO DAILY DEPRESSION #90 tabs 04/16/24 04/22/24 Rx (Trintellix) lacosamide 100 mg tablet (Vimpat) 100 mg PO BID #180 tabs 04/22/24 04/22/24 Rx valacyclovir 500 mg tablet 1,000 mg (2 x 500 mg) PO Q8 #42 04/23/24 Rx TABLETS cephalexin 500 mg capsule 500 mg PO TID #21 caps 05/04/24 05/04/24 Rx Have you fallen in the past year?: No [facility] Medical History (Updated 05/04/24 @ 16:27 by Jd VALENCIA, PA) Open wound of right lower extremity Contusion of right foot Kyphoscoliosis deformity of spine Bee sting Lumbar contusion Contusion of thoracic wall Pain of left lower extremity Contact with and (suspected) exposure to ot (more content not included)... Normal [facility] OCT OPTIC NERVE CIRRUS OU (B OTH EYES)on 05-03-2024 [facility] Radiology Study observation (narrative) [facility] PT D/C Summary (1)on 024 PT D/C Summary (1) [facility] [address] [place] [address] / REHABILITATION SERVICES DISCHARGE SUMMARY MR#: [id number] Acct: [id number] Name: LAUREN ALCARAZ Rep #: [id number] : 1940 83 From: Vincent Amado DPT, OCS, CSCS Referring Dr.: Dr. Chema Perry MD Status: R EG RCR Insurance: MEDICARE PART A B [employer] [id number] Discharge Summary D/C summary: It has been my pleasure to treat LAUREN ALCARAZ referred by Dr. Chema Perry MD, with the diagnosis of dizzyness for a total of 21 visit(s). Discharge Date: Please see the following information for a summary of their discharge status. Subjective Subjective: Pt states she was feeling dizzy earlier but is feeling better after getting some more sodium in her diet today. Overall Improvement % Improvement: 50 Objective Objective/Function: Pt needing some encouragement since she is not having as much strength as usual in BLE. Pt having some significant increases of unsteadiness with gait and balance training today. Goals Goal 1:: 24 on FGA and confident to take it with gait belt and no hands on assist. Goal Progress: Not Progressing Goal 2:: Pt feel spinning is 90% better. Goal Progress: Not Progressing Goal 3:: Pt have confidence in her HEP/dolphin trainer ex regimen to continue to make progress or lack digression outside of therapy. Goal Progress: NEW GOAL Goal 4:: FGA score 21/30 to reduce fall risk Goal Progress: Goal Met Goal 5:: general home strength to add to balance HEP Goal Progress: Goal Met Goal 6:: 10 30 SSTS test to show improved strength/mobility Goal Progress: Progressing, approp Plan Plan: Pt called and has been sick recently and not feeling like working out. wishes to cancel all visits and be discharged. D/C Information d/c sentence: If there are questions or concerns regarding this patient's physical therapy, please feel free to call me at [phone]. Thank you for the referral of this patient. Sincerely, Vincent Amado, DPT, OCS, CSCS Balance/Gait/Functional tests Balance/Special Test Scores Functional Gait Assessment Score: 22 % Disability: 26.6700 CATSIB Score (Max score 120 seconds): 85 Dizziness Score: 26 30 Second Chair Rise Test Seconds: 9 Improvement % Improvement: 50 04/30/24 0819 CC: Dr. Chema Perry MD EBG Signed Normal [facility] MR/BMS.Bon 04-22-2024 MR/BMS.IMB [facility] [address] [place] [id number] OFFICE VISIT Date of Service: 04/22/24 MR#: [id number] Acct: [id number] Name: LAUREN ALCARAZ Rep #: [id number] : 1940 Provider: Dr. Chema williamson MD Age/Sex: 83/F Location: [facility] Status: Signed Intake Vital Signs 04/17/24 06:55 04/20/24 10:06 04/22/24 13:06 Height 4 ft 8 in 4 ft 8 in 4 ft 8 in Weight: 105 lb 4.8 oz 105 lb BMI 23.6 23.5 BP 151/96 H 127/65 H Blood Pressure Location Lt brachial Position Sitting Respiration 19 H Pulse 62 70 Pulse Source Monitor Temp 97.6 F L 98.6 F Temp Source Temporal Temporal Pulse Oximetry (%) 92 91 Oxygen Delivery Method room air Intake Visit Reasons: [facility] ER FU Chief Complaint: N/V Pulmonary Function Technologist Required: No Is patient in pain?: Yes (Back/sides) Pain scale (1-10): 6 Allergies doxycycline Allergy (Mild, Verified 04/22/24 13:14) Vomiting oxycodone (From Percocet) Allergy (Mild, Verified 04/22/24 13:14) Confusion acetaminophen (From Darvocet-N) Allergy (Verified 04/22/24 13:14) Other lamotrigine (From Lamictal) Allergy (Verified 04/22/24 13:14) Lip Swelling latex Allergy (Verified 04/22/24 13:14) Rash moxifloxacin HCl (From Avelox) Allergy (Verified 04/22/24 13:14) Other propoxyphene napsylate (From Darvocet-N) Allergy (Verified 04/22/24 13:14) Other zolpidem tartrate (From Ambien) Adverse Reaction (Verified 04/22/24 13:14) Other Medications ???Medication ???Instructions ???Recorded ???Confirmed ???Type L.acidophil-L.casei-B.bifid -B.longum-FOS 1 cap PO DAILY Supplement 09/02/21 04/22/24 History 2 billion cell-50 mg capsule (Probiotic Blend) aspirin 81 mg tablet,delayed 81 mg PO DAILY 01/10/22 04/22/24 History release (Adult Aspirin Regimen) d-mannose 500 mg capsule 500 mg PO DAILY 06/07/22 04/22/24 History famotidine 10 mg tablet 10 mg PO BID 06/07/22 04/22/24 History multivitamin 1 tab PO DAILY 06/07/22 04/22/24 History mirabegron 50 mg tablet,extended 50 mg PO QHS Check with primary 01/29/23 04/22/24 History release 24 hr (Myrbetriq) doctor albuterol sulfate 2.5 mg/3 mL 2.5 mg (3 mL) inhalation Q6H PRN 04/07/23 04/22/24 Rx (0.083 %) solution for nebulization Sob /Or Wheezing #180 mL syringes BD ECLIPSE 04/11/23 04/22/24 History gabapentin 100 mg capsule 100 mg PO DAILY PRN restless 06/09/23 04/22/24 Rx leg(s) #90 caps atorvastatin 40 mg tablet See Rx Instructions .Route 07/28/23 04/22/24 Rx .COMPLEX #90 tabs latanoprost 0.005 % eye drops 1 drp ophthalmic (eye) DAILY 08/13/23 04/22/24 History (Xalatan) memantine 10 mg tablet 10 mg PO BID Alzheimer's #180 tabs 09/18/23 04/22/24 Rx furosemide 20 mg tablet 10 mg PO DAILY PRN 10/08/23 04/22/24 History levothyroxine 50 mcg tablet 50 mcg PO DAILY Thyroid #90 tabs 10/15/23 04/22/24 Rx donepezil 5 mg tablet (Aricept) 10 mg (2 x 5 mg) PO DAILY #90 tabs 11/12/23 04/22/24 Rx nitroglycerin 0.4 mg sublingual 0.4 mg sublingual Q5-15M PRN chest 11/12/23 04/22/24 Rx tablet pain #25 tabs apixaban 5 mg tablet (Eliquis) 5 mg PO BID #180 tabs 12/08/23 04/22/24 Rx cyanocobalamin (vitamin B-12) 1,000 mcg IM QMONTH #10 mL 12/08/23 04/22/24 Rx 1,000 mcg/mL injection solution (Dodex) denosumab 60 mg/mL subcutaneous 60 mg subcut [id number] #1 mL 02/18/24 04/22/24 Rx syringe (Prolia) BD Sry/needle eclips See Rx Instructions IM .COMPLEX 02/23/24 04/22/24 Rx #12 ea azelastine 137 mcg (0.1 %) nasal intranasal 03/16/24 04/22/24 History spray cetirizine 10 mg capsule (Zyrtec) 10 mg PO DAILY PRN 03/16/24 04/22/24 History diazepam 2 mg tablet (Valium) 2 mg PO QHS PRN anxiety #1 TAB 03/16/24 04/22/24 Rx fluticasone propionate 50 1 spray intranasal DAILY 03/16/24 04/22/24 History mcg/actuation nasal spray,suspension (Allergy Relief (fluticasone)) cyanocobalamin (vitamin B-12) 1,000 mcg IM QMONTH #10 mL 04/01/24 04/22/24 Rx 1,000 mcg/mL injection solution PEP device #1 ea 04/06/24 04/22/24 Rx pramipexole 0.5 mg tablet 0.5 mg PO BID #180 tabs 04/16/24 04/22/24 Rx vortioxetine 20 mg tablet 20 mg PO DAILY DEPRESSION #90 tabs 04/16/24 04/22/24 Rx (Trintellix) lacosamide 100 mg tablet (Vimpat) 100 mg PO BID #180 tabs 04/22/24 04/22/24 Rx valacyclovir 500 mg tablet 1,000 mg (2 x 500 mg) PO Q8 #42 04/23/24 Rx TABLETS Have you fallen in the past year?: No [facility] Medical History Contusion of right foot Kyphoscoliosis deformity of spine Bee sting Lumbar contusion Contusion of thoracic wall Pain of left lower extremity Contact with and (suspected) exposure to other viral communicable diseases Contusion of left wrist Left elbow contusion Contusion of left shoulder Scalp contusion Injury of left elbow Injury of left s (more content not included)... Normal [facility] Office Visit Reporton 2023 Office Visit Report [facility] [address] [place] [address] OFFICE VISIT Date of Service: 04/19/24 MR#: [id number] Acct: [id number] Patient: LAUREN ALCARAZ Rep #: [id number] : 1940 Provider: ERIK Mckenna Age/Sex: 83/F Location: [facility] Status: Signed Intake Vital Signs 04/17/24 06:55 04/19/24 11:11 Height 4 ft 8 in Weight: 103 lb BP 140/68 H Blood Pressure Location Rt brachial Position Sitting Respiration 16 Pulse 72 Pulse Source NIBP Temp 98.1 F Temp Source Temporal Pulse Oximetry (%) 93 Oxygen Delivery Method room air Intake Visit Reasons: NAUSEA/VOMITING Chief Complaint: N/V Pulmonary Function Technologist Required: No Is patient in pain?: No Allergies doxycycline Allergy (Mild, Verified 04/19/24 11:11) Vomiting oxycodone (From Percocet) Allergy (Mild, Verified 04/19/24 11:11) Confusion acetaminophen (From Darvocet-N) Allergy (Verified 04/19/24 11:11) Other lamotrigine (From Lamictal) Allergy (Verified 04/19/24 11:11) Lip Swelling latex Allergy (Verified 04/19/24 11:11) Rash moxifloxacin HCl (From Avelox) Allergy (Verified 04/19/24 11:11) Other propoxyphene napsylate (From Darvocet-N) Allergy (Verified 04/19/24 11:11) Other zolpidem tartrate (From Ambien) Adverse Reaction (Verified 04/19/24 11:11) Other Is last menstrual period known: No Post menopausal: Yes Patient : No Have you fallen in the past year?: No Nurse's Note: pt given Acyclovir from ED for left sided shingles on friday, friday pt began with N/V. pt tried pepto bismol without relief, no RX given for nausea. 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 wants RX for different shingles med. [facility] Medical History Contusion of right foot Kyphoscoliosis deformity of spine Bee sting Lumbar contusion Contusion of thoracic wall Pain of left lower extremity Contact with and (suspected) exposure to other viral communicable diseases Contusion of left wrist Left elbow contusion Contusion of left shoulder Scalp contusion Injury of left elbow Injury of left shoulder Presence of stent in coronary artery ( 1989) Atherosclerotic heart disease of [place] coronary artery without angina pectoris Essential hypertension Influenza A Health care maintenance Falls frequently Cancer Depression Dementia Walker as ambulation aid Arthritis Bladder disease Low iron DVT (deep venous thrombosis) High cholesterol Restless legs Back pain TIA (transient ischemic attack) Seizures Difficulty swallowing Gastric reflux Non-smoker Asthma Shortness of breath on exertion Hx of echocardiogram History of stress test Hypertension Cardiology follow-up encounter History of heart attack Hypertension aquired autoimmune encephalopathy h/o back surgery Heart disease Dementia Partial complex seizures Surgical History History of hernia surgery Presence of coronary angioplasty implant and graft ( 1989) History of hammer toe correction History of lumbar laminectomy History of carpal tunnel release History of tonsillectomy and adenoidectomy History of lumpectomy of left breast History of cardiac catheterization History of esophagogastroduodenoscopy (EGD) Hx of colonoscopy Hx of ventral hernia repair Hx of cataract extraction History of laryngoscopy History of appendectomy H/O kyphoplasty Family History Mother CVA (cerebral vascular accident) Arthritis Father Myocardial infarction, Onset Age: 40 Alcoholism Hypertension Sister Anemia Grandmother Bowel disease Osteoporosis Ovarian cancer Social History household members: spouse housing: house Smoking Status: Never smoker alcohol intake: current alcohol intake frequency: a few times a week Alcohol type: wine substance use type: does not use caffeine: Yes Type: coffee Number of servings: 1 what type of physical activity do you participate in: other details: PT 3x weekly frequency: 3-4 times per week do you feel safe at home: Yes HPI HPI Chief Complaint: N/V Details: LAUREN ALCARAZ, is a 83 F who presents to the office today for concerns over reaction to medication. Patient was started on acyclovir for her shingles. This is causing her nausea and vomiting. She has been treated in the past with [employer]. She would like to be switched over to this medication. She is still having symptoms of shingles with pain in her back. She does have shingles that do follow on her her right lower flank. These have not dried up yet. ROS Const Constitutional: Positive for other (ROS negative x 6 except what is described above) Ex (more content not included)... Normal [facility] Emergency Department Summary on 04-17-2024 Emergency Department Summary [facility] Medical Records Department [address] [place] [address] Emergency Department Summary 04/17/24 MR#: [id number] Acct: [id number] Name: LAUREN ALCARAZ Rep #: [id number] : 1940 83 From: Vincent Morris DO PCP: Dr. Chema Perry MD Status:DEP ER Location: ED HPI History of Present Illness Chief Complaint: Wound Informant: patient Onset/Context/Timing Onset: Yesterday Context: Gradual Onset Timing: Continuous Quality: Burning Location: Left lower back Worsened by: Nothing Relieved by: Nothing Narrative Narrative: Patient presents with rash to her lower back that began last night. Patient states she noted some redness and pain to her left lower back last evening. Patient states she has a history of shingles. Patient did not feel similar to previous episode of shingles. Patient describes her pain as burning. Patient states nothing makes it better and nothing makes it worse. Patient denies any fevers or chills. Patient denies any nausea or vomiting. Patient denies any paresthesias or weakness. [facility] Medical History Contusion of right foot Kyphoscoliosis deformity of spine Bee sting Lumbar contusion Contusion of thoracic wall Pain of left lower extremity Contact with and (suspected) exposure to other viral communicable diseases Contusion of left wrist Left elbow contusion Contusion of left shoulder Scalp contusion Injury of left elbow Injury of left shoulder Presence of stent in coronary artery ( 1989) Atherosclerotic heart disease of [place] coronary artery without angina pectoris Essential hypertension Influenza A Health care maintenance Falls frequently Cancer Depression Dementia Walker as ambulation aid Arthritis Bladder disease Low iron DVT (deep venous thrombosis) High cholesterol Restless legs Back pain TIA (transient ischemic attack) Seizures Difficulty swallowing Gastric reflux Non-smoker Asthma Shortness of breath on exertion Hx of echocardiogram History of stress test Hypertension Cardiology follow-up encounter History of heart attack Hypertension aquired autoimmune encephalopathy h/o back surgery Heart disease Dementia Partial complex seizures Home Medications ???Medication ???Instructions ???Recorded ???Last Taken ???Type L.acidophil-L.casei-B.bifid -B.longum-FOS 1 cap PO DAILY Supplement 09/02/21 10/05/21 History 2 billion cell-50 mg capsule (Probiotic Blend) aspirin 81 mg tablet,delayed 81 mg PO DAILY 01/10/22 Unknown History release (Adult Aspirin Regimen) d-mannose 500 mg capsule 500 mg PO DAILY 06/07/22 Unknown History famotidine 10 mg tablet 10 mg PO BID 06/07/22 Unknown History multivitamin 1 tab PO DAILY 06/07/22 Unknown History mirabegron 50 mg tablet,extended 50 mg PO QHS Check with primary 01/29/23 Unknown History release 24 hr (Myrbetriq) doctor albuterol sulfate 2.5 mg/3 mL 2.5 mg (3 mL) inhalation Q6H PRN 04/07/23 Unknown Rx (0.083 %) solution for nebulization Sob /Or Wheezing #180 mL syringes BD ECLIPSE 04/11/23 Unknown History gabapentin 100 mg capsule 100 mg PO DAILY PRN restless 06/09/23 Unknown Rx leg(s) #90 caps atorvastatin 40 mg tablet See Rx Instructions .Route 07/28/23 Unknown Rx .COMPLEX #90 tabs latanoprost 0.005 % eye drops 1 drp ophthalmic (eye) DAILY 08/13/23 Unknown History (Xalatan) memantine 10 mg tablet 10 mg PO BID Alzheimer's #180 tabs 09/18/23 Unknown Rx furosemide 20 mg tablet 10 mg PO DAILY PRN 10/08/23 Unknown History levothyroxine 50 mcg tablet 50 mcg PO DAILY Thyroid #90 tabs 10/15/23 Unknown Rx donepezil 5 mg tablet (Aricept) 10 mg (2 x 5 mg) PO DAILY #90 tabs 11/12/23 Unknown Rx nitroglycerin 0.4 mg sublingual 0.4 mg sublingual Q5-15M PRN chest 11/12/23 Unknown Rx tablet pain #25 tabs apixaban 5 mg tablet (Eliquis) 5 mg PO BID #180 tabs 12/08/23 Unknown Rx cyanocobalamin (vitamin B-12) 1,000 mcg IM QMONTH #10 mL 12/08/23 Unknown Rx 1,000 mcg/mL injection solution (Dodex) denosumab 60 mg/mL subcutaneous 60 mg subcut [id number] #1 mL 02/18/24 Unknown Rx syringe (Prolia) BD Sry/needle eclips See Rx Instructions IM .COMPLEX 02/23/24 Unknown Rx #12 ea azelastine 137 mcg (0.1 %) nasal intranasal 03/16/24 Unknown History spray cetirizine 10 mg capsule (Zyrtec) 10 mg PO DAILY PRN 03/16/24 Unknown History diazepam 2 mg tablet (Valium) 2 mg PO QHS PRN anxiety #1 TAB 03/16/24 Unknown Rx fluticasone propionate 50 1 spray intranasal DAILY 03/16/24 Unknown History mcg/actuation nasal spray,suspension (Allergy Relief (fluticasone)) lacosamide 100 mg tablet (Vimpat) 100 mg PO BID #30 tabs 03/31/24 Unknown Rx cyanocobalamin (vitamin B-12) 1,000 mcg IM QMONTH #10 mL 04/01/24 Unknown Rx 1,000 mcg/mL i (more content not included)... Normal [facility] Pulmonary Visit Reporton Pulmonary Visit Report [facility] [address] [place] [address] OFFICE VISIT Date of Service: 04/05/24 MR#: [id number] Acct: [id number] Name: LAUREN ALCARAZ Rep #: [id number] : 1940 Provider: BURAK Vincent Age/Sex: 83/F Location: [facility] Status: Signed Assessment and Plan Assessment and Plan (1) Bronchiectasis: Status: Chronic Qualifiers: Bronchiectasis type: uncomplicated Qualified Code(s): J47.9 - Bronchiectasis, uncomplicated Comment: Lingular subsegment Plan: Stable, no signs of exacerbation of bronchiectasis today. No change in maintenance medications. No additional testing at this time. Encouraged the use of Acapella device. Ordering replacement with education. She was encouraged to contact the office with any signs of new or worsening symptoms. Follow-up in 6 months. (2) Kyphoscoliosis deformity of spine: Status: Chronic Plan: Complicates exam, plan, care and prognosis. Medications: New [PEP device] with training 1 ea 0RF J47.9 - Bronchiectasis, uncomplicated Plan Details Follow Up: 6 Months ([facility]) HPI 6 M FU Chief Complaint: Test results HPI Comments Details: This patient presents to the office today for follow-up of her bronchiectasis and to discuss test results. She is in a wheelchair, currently on room air and accompanied today by her . She has not recently been seen in the ED or urgent care for any respiratory illness. She has not required any antibiotics or prednisone for any breathing problems. She is compliant with use of azelastine, Flonase and Zyrtec daily. She was recently started on ipratropium bromide nasal spray by ENT. Unfortunately, she continues to experience postnasal drip. She will contact the ENT and update him as she believes he will do something like a cauterization to treat it. She has not been using an Acapella device. She admits that she is not sure if she has 1 or where it might be. She does have shortness of breath that is getting worse. She believes it is related to her kyphoscoliosis progression. She also reports some sinus congestion. She denies any cough, sputum production or hemoptysis. She denies any wheezing, chest tightness, chest pain or palpitations. She also denies any fever, chills or body aches. Test results personally reviewed patient: Pulmonary function test completed March 01, 2024. Impression is isolated mild reduction diffusing capacity. Intake Vital Signs 10/08/23 14:26 03/16/24 11:15 04/05/24 13:24 Height 4 ft 8 in 4 ft 8 in 4 ft 8 in Weight: 105 lb BMI 23.5 BP 149/75 H Blood Pressure Location Rt brachial Position Sitting Pulse 78 Pulse Source Monitor Temp 97.8 F Temperature Source Temporal Artery Pulse Oximetry (%) 92 Oxygen Delivery Method room air Intake Visit Reasons: 6 M FU Chief Complaint: b12 injection Pulmonary Function Technologist Required: No DME Vendor: [employer] Accompanied by: Allergies doxycycline Allergy (Mild, Verified 04/05/24 14:22) Vomiting oxycodone (From Percocet) Allergy (Mild, Verified 04/05/24 14:22) Confusion acetaminophen (From Darvocet-N) Allergy (Verified 04/05/24 14:22) Other lamotrigine (From Lamictal) Allergy (Verified 04/05/24 14:22) Lip Swelling latex Allergy (Verified 04/05/24 14:22) Rash moxifloxacin HCl (From Avelox) Allergy (Verified 04/05/24 14:22) Other propoxyphene napsylate (From Darvocet-N) Allergy (Verified 04/05/24 14:22) Other zolpidem tartrate (From Ambien) Adverse Reaction (Verified 04/05/24 14:22) Other Medications ???Medication ???Instructions ???Recorded ???Confirmed ???Type L.acidophil-L.casei-B.bifid -B.longum-FOS 1 cap PO DAILY Supplement 09/02/21 04/05/24 History 2 billion cell-50 mg capsule (Probiotic Blend) aspirin 81 mg tablet,delayed 81 mg PO DAILY 01/10/22 04/05/24 History release (Adult Aspirin Regimen) d-mannose 500 mg capsule 500 mg PO DAILY 06/07/22 04/05/24 History famotidine 10 mg tablet 10 mg PO BID 06/07/22 04/05/24 History multivitamin 1 tab PO DAILY 06/07/22 04/05/24 History mirabegron 50 mg tablet,extended 50 mg PO QHS Check with primary 01/29/23 04/05/24 History release 24 hr (Myrbetriq) doctor albuterol sulfate 2.5 mg/3 mL 2.5 mg (3 mL) inhalation Q6H PRN 04/07/23 04/05/24 Rx (0.083 %) solution for nebulization Sob /Or Wheezing #180 mL syringes BD ECLIPSE 04/11/23 04/05/24 History vortioxetine 20 mg tablet 20 mg PO DAILY DEPRESSION #90 tabs 04/22/23 04/05/24 Rx (Trintellix) gabapentin 100 mg capsule 100 mg PO DAILY PRN restless 06/09/23 04/05/24 Rx leg(s) #90 caps atorvastatin 40 mg tablet See Rx Instructions .Route 07/28/23 04/05/24 Rx .COMPLEX #90 tabs latanoprost 0.005 % eye drops 1 drp ophthalmic (eye) DAILY 08/13/23 04/05/24 Hi (more content not included)... Normal [facility] Re-Evaluation - PT (1)on Re-Evaluation - PT (1) [facility] Physical Therapy [facility] [address] [place] [address]. [address] [place] [address] / REEVALUATION / MEDICARE RECERTIFICATION PHYSICAL THERAPY MR#: [id number] Acct: [id number] Name: LAUREN ALCARAZ Rep #: [id number] : 1940 83 From: Vincent Amado DPT, OCS, CSCS Referring Dr.: Dr. Chema Perry MD Status:REG RCR Insurance: MEDICARE PART A B [place] [place] [id number] Re-Evaluation Intro: Dr. Chema Perry MD, It has been my pleasure to treat LAUREN ALCARAZ over the last 19 visits for dizzyness. Please see the progress note below for an update on the physical therapy plan of care! Subjective Subjective: Doing better. Feels stronger than a month ago. Using L leg more confidently. Trying to use L leg more often and starting with it. Backing up feels better on L leg. has taken a few falls in the last month. R leg gave out while she was walking a few times. Sometimes she goes without walker in the house. [facility] won't address it. Dr. Perry does not know about it. Is in pain 10/10 pain earlier in the week and got epidural. HEP: doing heel raises, step adn recover, foam, squats. bands are neglected. Erma still 2-3x/week. Objective Objective/Function: 30 sSTS is same as a month ago FGA is -1 from a month ago. Wh walker is still appropriate due to R leg giving out at unknown times. Otherwise balance may be good enough to go without it but it is helpful for her back also. Lacks the objective improvement. And educated that it is time to have more specific goals or try to wean from therapy to I HEP / exercises with the dolphin trainer. Plan Plan Plan: weekly x 4 then every other week x 4 weeks til end of May to ensure smooth trasntion to HEp and dolphin trainer. Please focus on weight shifting adn LE strength progression in therapy. Therapist to chat with dolphin trainer with pt approval and work to a full dolphin trainer program. New goal set with fair prognosis with patient motivation and desire to meet it and get comfortable with I workout. Balance/Gait/Functional tests Balance/Special Test Scores Functional Gait Assessment Score: 22 % Disability: 26.6700 CATSIB Score (Max score 120 seconds): 85 Dizziness Score: 26 30 Second Chair Rise Test Seconds: 9 Goals Goals Goal 1:: 24 on FGA and confident to take it with gait belt and no hands on assist. Goal Time Frame: 4-6 Weeks Goal Progress: Not Progressing Goal 2:: Pt feel spinning is 90% better. Goal Time Frame: 4-6 Weeks Goal Progress: Not Progressing Goal 3:: Pt have confidence in her HEP/dolphin trainer ex regimen to continue to make progress or lack digression outside of therapy. Goal Time Frame: 6-8 Weeks Goal Progress: NEW GOAL Goal 4:: FGA score 21/30 to reduce fall risk Goal Time Frame: 4-6 Weeks Goal Progress: Goal Met Goal 5:: general home strength to add to balance HEP Goal Time Frame: 4-6 Weeks Goal Progress: Goal Met Goal 6:: 10 30 SSTS test to show improved strength/mobility Goal Time Frame: 2-4 Weeks Goal Progress: Progressing, approp Anticipated Interventions Anticipated Interventions Patient/Client Instruction: Educate patient on: Condition and Plan of Care For the Purpose of:: To increase tolerance to activity/condition/position , To improve gait and locomotor functions and To improve safety with gait Therapeutic Exercise to Include: Balance training and Gait and locomotor training Comment: posoitional and vestibular ex For the Purpose of:: To improve muscle performance and motor function, To increase tolerance to activity/condition/position , To improve gait and locomotor functions and To improve safety Re-Evaluation Ending Re-evaluation ending: Please do not hesitate to contact me at [phone] by phone or if you have questions or concerns regarding this new plan of care! Sincerely, Vincent Amado, RYANT, OCS, CSCS 04/02/24 4894 CC: Dr. Chema Perry MD EBG Signed For Medicare only, by signing this I certify the plan of care. _ Physicians Signature Date Normal [facility] Office Visit Reporton 2023 Office Visit Report [facility] [address] [place] [address] OFFICE VISIT Date of Service: 04/01/24 MR#: [id number] Acct: [id number] Patient: LAUREN ALCARAZ Rep #: [id number] : 1940 Provider: MOHAMUD NURSE Age/Sex: 83/F Location: [facility] Status: Signed Intake Vital Signs 02/11/24 15:30 03/16/24 11:15 Height 4 ft 8 in 4 ft 8 in Intake Visit Reasons: B12 inject Chief Complaint: b12 injection Accompanied by: Self Is patient in pain?: No Allergies doxycycline Allergy (Mild, Verified 04/01/24 10:13) Vomiting oxycodone (From Percocet) Allergy (Mild, Verified 04/01/24 10:13) Confusion acetaminophen (From Darvocet-N) Allergy (Verified 04/01/24 10:13) Other lamotrigine (From Lamictal) Allergy (Verified 04/01/24 10:13) Lip Swelling latex Allergy (Verified 04/01/24 10:13) Rash moxifloxacin HCl (From Avelox) Allergy (Verified 04/01/24 10:13) Other propoxyphene napsylate (From Darvocet-N) Allergy (Verified 04/01/24 10:13) Other zolpidem tartrate (From Ambien) Adverse Reaction (Verified 04/01/24 10:13) Other Medications ???Medication ???Instructions ???Recorded ???Confirmed ???Type L.acidophil-L.casei-B.bifid -B.longum-FOS 1 cap PO DAILY Supplement 09/02/21 04/01/24 History 2 billion cell-50 mg capsule (Probiotic Blend) aspirin 81 mg tablet,delayed 81 mg PO DAILY 01/10/22 04/01/24 History release (Adult Aspirin Regimen) d-mannose 500 mg capsule 500 mg PO DAILY 06/07/22 04/01/24 History famotidine 10 mg tablet 10 mg PO BID 06/07/22 04/01/24 History multivitamin 1 tab PO DAILY 06/07/22 04/01/24 History mirabegron 50 mg tablet,extended 50 mg PO QHS Check with primary 01/29/23 04/01/24 History release 24 hr (Myrbetriq) doctor albuterol sulfate 2.5 mg/3 mL 2.5 mg (3 mL) inhalation Q6H PRN 04/07/23 04/01/24 Rx (0.083 %) solution for nebulization Sob /Or Wheezing #180 mL syringes BD ECLIPSE 04/11/23 04/01/24 History vortioxetine 20 mg tablet 20 mg PO DAILY DEPRESSION #90 tabs 04/22/23 04/01/24 Rx (Trintellix) gabapentin 100 mg capsule 100 mg PO DAILY PRN restless 06/09/23 04/01/24 Rx leg(s) #90 caps atorvastatin 40 mg tablet See Rx Instructions .Route 07/28/23 04/01/24 Rx .COMPLEX #90 tabs latanoprost 0.005 % eye drops 1 drp ophthalmic (eye) DAILY 08/13/23 04/01/24 History (Xalatan) memantine 10 mg tablet 10 mg PO BID Alzheimer's #180 tabs 09/18/23 04/01/24 Rx furosemide 20 mg tablet 10 mg PO DAILY PRN 10/08/23 04/01/24 History levothyroxine 50 mcg tablet 50 mcg PO DAILY Thyroid #90 tabs 10/15/23 04/01/24 Rx donepezil 5 mg tablet (Aricept) 10 mg (2 x 5 mg) PO DAILY #90 tabs 11/12/23 04/01/24 Rx nitroglycerin 0.4 mg sublingual 0.4 mg sublingual Q5-15M PRN chest 11/12/23 04/01/24 Rx tablet pain #25 tabs apixaban 5 mg tablet (Eliquis) 5 mg PO BID #180 tabs 12/08/23 04/01/24 Rx cyanocobalamin (vitamin B-12) 1,000 mcg IM QMONTH #10 mL 12/08/23 04/01/24 Rx 1,000 mcg/mL injection solution (Dodex) pramipexole 0.5 mg tablet 0.5 mg PO BID #180 tabs 12/30/23 04/01/24 Rx denosumab 60 mg/mL subcutaneous 60 mg subcut [id number] #1 mL 02/18/24 04/01/24 Rx syringe (Prolia) BD Sry/needle eclips See Rx Instructions IM .COMPLEX 02/23/24 04/01/24 Rx #12 ea azelastine 137 mcg (0.1 %) nasal intranasal 03/16/24 04/01/24 History spray cetirizine 10 mg capsule (Zyrtec) 10 mg PO DAILY PRN 03/16/24 04/01/24 History diazepam 2 mg tablet (Valium) 2 mg PO QHS PRN anxiety #1 TAB 03/16/24 04/01/24 Rx fluticasone propionate 50 1 spray intranasal DAILY 03/16/24 04/01/24 History mcg/actuation nasal spray,suspension (Allergy Relief (fluticasone)) methylprednisolone 4 mg tablets in See Rx Instructions PO PER PKG DIR 03/16/24 04/01/24 Rx a dose pack (Medrol (Devan)) #21 tabs lacosamide 100 mg tablet (Vimpat) 100 mg PO BID #30 tabs 03/31/24 04/01/24 Rx Have you fallen in the past year?: No Office Meds cyanocobalamin (vitamin B-12) 1,000 mcg/mL injection solution Performing Provider: Chema Perry MD Performing Location: [facility] Administered by: Dottie Cannon on 04/01/24 10:13 Dose Route Admin Location Dispensed Lot Number Expiration Date PAC Man ufacturer 1,000 mcg IM Right deltoid 1 mL [id number] 06/18/25 65909-522-34 [facility] Comments: Patient provided medication. Patient tolerated well. Assessment and Plan Assessment and Plan (1) Vitamin B 12 deficiency: Status: Acute Orders: Orders Vitamin B12 Today E53.8 - Deficiency of other specified B group vitamins, R53.83 - Other fatigue Clinical Quality Measures Falls Risk Screening/Assistive Devices Have you fallen in the past year?: No 04/01/24 1026 Date Chema Perry MD Cosign Signature: Date ___ (more content not included)... Normal [facility] CNOVon 03-25-2024 CNOV Normal [facility] Basic Metabolic Profile (BMP )on 03-18-2024 BUN/CRE 24.5 RATIO High 10-20 [facility] Comment on above: Performed By: #### L 500.2500 ####[facility] [address] [place], [address] CA,Total 9.3 mg/dL Normal 8.5-10.1 [facility] Comment on above: Performed By: #### L 500.2500 ####[facility] [address] [place], [address] Chloride [Moles/Vol] 105 mmol/L Normal 98-107 [facility] Comment on above: Performed By: #### L 500.2500 ####[facility] [address] [place], [address] CO2 [Moles/Vol] 28.0 mmol/L Normal 21.0-32.0 [facility] Comment on above: Performed By: #### L 500.2500 ####[facility] [address] [place], [address] Creatinine [Mass/Vol] 1.06 mg/dL High 0.55-1.02 [facility] Comment on above: Result Comment: The validity of the calculated GFR GFRAA in patients over 70 years has not been determined. Clinical correlation is essential. Performed By: #### L 500.2500 ####[facility] [address] [place], [address] EST GFR - AA 64 mL/min Normal >60 [facility] Comment on above: Result Comment: Afri can Bol[place]ian GFR Calc Performed By: #### L 500.2500 ####[facility] [address] [place], [address] GAP 5 Normal 5-15 [facility] Comment on above: Performed By: #### L 500.2500 ####[facility] [address] [place], [address] GFR/1.73 sq M.predicted among non-blacks MDRD (S/P/Bld) [Vol rate/Area] 53 mL/min/{1.73_m2} Low >60 [facility] Comment on above: Result Comment: Non- GFR Calc Performed By: #### L 500.2500 ####[facility] [address] [place], [address] Glucose [Mass/Vol] 133 mg/dL High 74-106 [facility] Comment on above: Result Comment: Fast ing Glucose result greater than or equal to 126 mg/dL suggests DIABETES MELLITUS per A.D.A. criteria. Performed By: #### L 500.2500 ####[facility] [address] [place], [address] Potassium [Moles/Vol] 4.2 mmol/L Normal 3.5-5.1 [facility] Comment on above: Performed By: #### L 500.2500 ####[facility] [address] [place], [address] Sodium [Moles/Vol] 138 mmol/L Normal 136-145 [facility] Comment on above: Performed By: #### L 500.2500 ####[facility] [address] [place], [address] Urea nitrogen [Mass/Vol] 26 mg/dL High 7-18 [facility] Comment on above: Performed By: #### L 500.2500 ####[facility] [address] [place], [address] Foot min 3 Viewson 4 Foot min 3 Views [facility] Imaging Services [address] [place] [address] Foot min 3 Views MR#: [id number] Acct: [id number] Name: LAUREN ALCARAZ Rep #: [id number] : 1940 F 83 From: Sam stafford MD PCP: Dr. Chema Perry MD Status: REG CLI Study: Foot min 3 Views Date of Exam: 03/16/24 Exam# [id number] Ordering Dr: Jd Gallego PA [id number] STUDY: X-RAY - RIGHT FOOT CLINICAL: Female, 83 years old. SPRAIN TECHNIQUE: 3 view(s) of the foot. COMPARISON: None. FINDINGS: There is a plantar calcaneal spur. Normal visualized subtalar, talonavicular, calcaneocuboid, tarsal and tarsometatarsal articulations. Flattening of the head of the second metatarsal suggests a possible old injury such as Freiberg''s disease. There is degenerative arthrosis of the metatarsophalangeal joint of the hallux . The patient is status post prior bunionectomy. Normal tibial and fibular sesamoid bones. Normal interphalangeal joint of the great toe. Normal phalanges of the great toe. Normal second through fifth metatarsophalangeal joints. Normal interphalangeal joints and phalanges of the lesser toes. The soft tissue structures are unremarkable. RAD/Foot min 3 Views IMPRESSION: No acute fracture seen. 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 Electronically Signed: Sam Mac MD at 11:20 EDT Reading Location ID and State: [facility] [place] , Service support , CC: Dr. Chema Perry MD; ERIK Dodson Synthetic Staple Extruder: Signed Normal [facility] Urgent Care Visit Reporton 0 03-16-2024 Urgent Care Visit Report [facility] [address], [address] [place], [place] [address] OFFICE VISIT Date of Service: 03/16/24 MR#: [id number] Acct: [id number] Name: LAUREN ALCARAZ Rep #: [id number] : 1940 Provider: ERIK Dodson Age/Sex: 83/F Location: [facility] Status: Signed Intake Vital Signs 02/11/24 15:30 03/16/24 09:39 03/16/24 11:15 Height 4 ft 8 in 4 ft 8 in 4 ft 8 in Weight: 102 lb BMI 22.8 BP 101/63 Blood Pressure Location Rt brachial Position Sitting Respiration 14 Pulse 75 Pulse Source Monitor Temp 97.4 F L Temp Source Temporal Pulse Oximetry (%) 95 Oxygen Delivery Method room air Intake Visit Reasons: SWOLLEN FOOT / POSSIBLE BROKEN BONE Chief Complaint: b12 injection Pulmonary Function Technologist Required: No Is patient in pain?: Yes (R foot) Pain scale (1-10): 6 Allergies doxycycline Allergy (Mild, Verified 03/16/24 11:07) Vomiting oxycodone (From Percocet) Allergy (Mild, Verified 03/16/24 11:07) Confusion acetaminophen (From Darvocet-N) Allergy (Verified 03/16/24 11:07) Other lamotrigine (From Lamictal) Allergy (Verified 03/16/24 11:07) Lip Swelling latex Allergy (Verified 03/16/24 11:07) Rash moxifloxacin HCl (From Avelox) Allergy (Verified 03/16/24 11:07) Other propoxyphene napsylate (From Darvocet-N) Allergy (Verified 03/16/24 11:07) Other zolpidem tartrate (From Ambien) Adverse Reaction (Verified 03/16/24 11:07) Other Medications ???Medication ???Instructions ???Recorded ???Confirmed ???Type L.acidophil-L.casei-B.bifid -B.longum-FOS 1 cap PO DAILY Supplement 09/02/21 03/16/24 History 2 billion cell-50 mg capsule (Probiotic Blend) aspirin 81 mg tablet,delayed 81 mg PO DAILY 01/10/22 03/16/24 History release (Adult Aspirin Regimen) d-mannose 500 mg capsule 500 mg PO DAILY 06/07/22 03/16/24 History famotidine 10 mg tablet 10 mg PO BID 06/07/22 03/16/24 History multivitamin 1 tab PO DAILY 06/07/22 03/16/24 History mirabegron 50 mg tablet,extended 50 mg PO QHS Check with primary 01/29/23 03/16/24 History release 24 hr (Myrbetriq) doctor albuterol sulfate 2.5 mg/3 mL 2.5 mg (3 mL) inhalation Q6H PRN 04/07/23 03/16/24 Rx (0.083 %) solution for nebulization Sob /Or Wheezing #180 mL syringes BD ECLIPSE 04/11/23 03/16/24 History vortioxetine 20 mg tablet 20 mg PO DAILY DEPRESSION #90 tabs 04/22/23 03/16/24 Rx (Trintellix) gabapentin 100 mg capsule 100 mg PO DAILY PRN restless 06/09/23 03/16/24 Rx leg(s) #90 caps atorvastatin 40 mg tablet See Rx Instructions .Route 07/28/23 03/16/24 Rx .COMPLEX #90 tabs latanoprost 0.005 % eye drops 1 drp ophthalmic (eye) DAILY 08/13/23 03/16/24 History (Xalatan) lacosamide 100 mg tablet (Vimpat) 100 mg PO BID Check with primary 09/18/23 03/16/24 Rx doctor #180 tabs memantine 10 mg tablet 10 mg PO BID Alzheimer's #180 tabs 09/18/23 03/16/24 Rx furosemide 20 mg tablet 10 mg PO DAILY PRN 10/08/23 03/16/24 History levothyroxine 50 mcg tablet 50 mcg PO DAILY Thyroid #90 tabs 10/15/23 03/16/24 Rx donepezil 5 mg tablet (Aricept) 10 mg (2 x 5 mg) PO DAILY #90 tabs 11/12/23 03/16/24 Rx nitroglycerin 0.4 mg sublingual 0.4 mg sublingual Q5-15M PRN chest 11/12/23 03/16/24 Rx tablet pain #25 tabs apixaban 5 mg tablet (Eliquis) 5 mg PO BID #180 tabs 12/08/23 03/16/24 Rx cyanocobalamin (vitamin B-12) 1,000 mcg IM QMONTH #10 mL 12/08/23 03/16/24 Rx 1,000 mcg/mL injection solution (Dodex) pramipexole 0.5 mg tablet 0.5 mg PO BID #180 tabs 12/30/23 03/16/24 Rx denosumab 60 mg/mL subcutaneous 60 mg subcut [id number] #1 mL 02/18/24 03/16/24 Rx syringe (Prolia) BD Sry/needle eclips See Rx Instructions IM .COMPLEX 02/23/24 03/16/24 Rx #12 ea azelastine 137 mcg (0.1 %) nasal intranasal 03/16/24 03/16/24 History spray cetirizine 10 mg capsule (Zyrtec) 10 mg PO DAILY PRN 03/16/24 03/16/24 History fluticasone propionate 50 1 spray intranasal DAILY 03/16/24 03/16/24 History mcg/actuation nasal spray,suspension (Allergy Relief (fluticasone)) methylprednisolone 4 mg tablets in See Rx Instructions PO PER PKG DIR 03/16/24 03/16/24 Rx a dose pack (Medrol (Devan)) #21 tabs Have you fallen in the past year?: No Nurse's Note: 2 weeks ago she dropped a box full of books on R foot, is still swollen and black and blue. Looks better than it did. States there is now a lump towards the top of the foot which was not there. Is just elevating, using tylneol and ibuprofen if real bad and using cold compress. which hasn't helped much. Is able to bear weight. States weight baring makes the pain worse, and it is bad towards the endc of the day. [facility] Medical History (Updated 03/16/24 @ 12:05 by Jd VALENCIA, PA) Contusion of right foot Kyphoscoliosis deformity of spine Bee sting Lumbar contusion (more content not included)... Normal [facility] Re-Evaluation - PT (1)on Re-Evaluation - PT (1) [facility] Physical [facility] [address] [place] [address]. [address] [place] [address] / REEVALUATION / MEDICARE RECERTIFICATION PHYSICAL THERAPY MR#: [id number] Acct: [id number] Name: LAUREN ALCARAZ Rep #: [id number] : 1940 83 From: Vincent Amado DPT, OCS, CSCS Referring Dr.: Dr. Chema Perry MD Status:REG RCR Insurance: MEDICARE PART A B [facility] [place] [id number] Re-Evaluation Intro: Dr. Chema Perry MD, It has been my pleasure to treat LAUREN ALCARAZ over the last 15 visits for dizzyness. Please see the progress note below for an update on the physical therapy plan of care! Subjective Subjective: Workouts in PT are going well. Doesn't know if it is helping with steadiness but vertigo feels better. Will go to [facility] tomorrow to see international specialist. Will look at LB scoilosis. Wondering if they can help with scoliosis being bent over. Wants breathing and steadiness to be things that can be improved with this doctor. says that she still needs lots of help with steadiness and not seeing huge improvements on that. Wants to continue via in clinic 2x/weeka nd dolphin trainer 3x/week. Objective Objective/Function: Pt has poor confidence as she feels she needs my hand on gait belt for FGA but I am not doing anything. Standing up taller for longer but still hunches in chair and with ambulating moreso without wh walker. improved FGA + 2 and 30 SSTS +3 but still 2 from normal.Measurable improvement on funcitonal tests and no dizzyness show improvement and appropriate to cotninue new POC with fair prognosis with compliance. Plan Plan Plan: 2x/week for 4 weeks...please work on general strength exercises to add to her HEp on days of f from Erma, work on progfression of FW weight shift funcitonally and home balance ex to tolerance. Please work on confidence with gait without AD in clinic with bending , turning, moving head. Balance/Gait/Functional tests Balance/Special Test Scores Functional Gait Assessment Score: 23 % Disability: 23.3400 CATSIB Score (Max score 120 seconds): 85 Dizziness Score: 26 30 Second Chair Rise Test Seconds: 9 Goals Goals Goal 1:: 24 on FGA and confident to take it with gait belt and no hands on assist. Goal Time Frame: 4-6 Weeks Goal Progress: NEW GOAL Goal 2:: Pt feel spinning is 90% better. Goal Time Frame: 4-6 Weeks Goal Progress: 50% Goal 3:: I appropriate balance ex to help maximize balance Goal Time Frame: 4-6 Weeks Goal Progress: Goal Met Goal 4:: FGA score 21/30 to reduce fall risk Goal Time Frame: 4-6 Weeks Goal Progress: Goal Met Goal 5:: general home strength to add to balance HEP Goal Time Frame: 4-6 Weeks Goal Progress: NEW GOAL Goal 6:: 10 30 SSTS test to show improved strength/mobility Goal Time Frame: 2-4 Weeks Goal Progress: Progressing, approp Anticipated Interventions Anticipated Interventions Patient/Client Instruction: Educate patient on: Condition and Plan of Care For the Purpose of:: To increase tolerance to activity/condition/position , To improve gait and locomotor functions and To improve safety with gait Therapeutic Exercise to Include: Balance training and Gait and locomotor training Comment: posoitional and vestibular ex For the Purpose of:: To improve muscle performance and motor function, To increase tolerance to activity/condition/position , To improve gait and locomotor functions and To improve safety Re-Evaluation Ending Re-evaluation ending: Please do not hesitate to contact me at [phone] by phone or if you have questions or concerns regarding this new plan of care! Sincerely, Vincent Amado, RYANT, OCS, CSCS 03/04/24 1348 CC: Dr. Chema Perry MD EBG Signed For Medicare only, by signing this I certify the plan of care. _ Physicians Signature Date Normal [facility] Office Visit Reporton 2023 Office Visit Report [facility] [address] [place] [address] OFFICE VISIT Date of Service: 02/23/24 MR#: [id number] Acct: [id number] Patient: LAUREN ALCARAZ Rep #: [id number] : 1940 Provider: MOHAMUD NURSE Age/Sex: 83/F Location: [facility] Status: Signed Intake Vital Signs 02/11/24 15:30 Height 4 ft 8 in Weight: 103 lb BMI 23.1 BP 120/70 Blood Pressure Location Lt brachial Position Sitting Respiration 16 Pulse 70 Pulse Source Monitor Temp 98.6 F Temp Source Temporal Pulse Oximetry (%) 94 Oxygen Delivery Method room air Intake Visit Reasons: B12 inject Chief Complaint: b12 injection Allergies doxycycline Allergy (Mild, Verified 02/11/24 15:22) Vomiting oxycodone (From Percocet) Allergy (Mild, Verified 02/11/24 15:22) Confusion acetaminophen (From Darvocet-N) Allergy (Verified 02/11/24 15:22) Other lamotrigine (From Lamictal) Allergy (Verified 02/11/24 15:22) Lip Swelling latex Allergy (Verified 02/11/24 15:22) Rash moxifloxacin HCl (From Avelox) Allergy (Verified 02/11/24 15:22) Other propoxyphene napsylate (From Darvocet-N) Allergy (Verified 02/11/24 15:22) Other zolpidem tartrate (From Ambien) Adverse Reaction (Verified 02/11/24 15:22) Other Have you fallen in the past year?: No Nurse's Note: pt received b12 injection, tolerated well. Office Meds cyanocobalamin (vitamin B-12) 1,000 mcg/mL injection solution Performing Provider: Chema Perry MD Performing Location: [facility] Administered by: Josselin Kat MA on 02/23/24 11:02 Dose Route Admin Location Dispensed Lot Number Expiration Date [facility] ufacturer 1,000 mcg IM right delt 1 mL [id number] 06/18/25 44083-049-26 [employer] Comments: PT TOLERATED WELL. Assessment and Plan Assessment and Plan (1) Vitamin B 12 deficiency: Status: Acute Orders: Orders Vitamin B12 Today E53.8 - Deficiency of other specified B group vitamins Clinical Quality Measures Falls Risk Screening/Assistive Devices Have you fallen in the past year?: No 02/23/24 1548 Date Chema Perry MD Cosigner Signature: Date (if applicable) CC: Normal [facility] Miscellaneous Lab Procedureo n 02-16-2024 MISC LAB TEST Normal [facility] Comment on above: Order Comment: Comme nts: SE antibodies [facility]:[id number] SER/RTGAD [id number] SER/RT Result Comment: TEST RESULTS LIMITS SE-65 Autoantibody SE-65 <5.0 U/mL 0.0-5.0 TESTING PERFORMED AT [facility]. ORIGINAL REPORT ON FILE IN LAB CONTAINS ADDITIONAL TEST SITE INFORMATION. Performed By: #### L 506.0400, L801.1541, L503.0105, L501.9520, L501.41574, L500.4050 ####[facility] [address] [place], [place], [address] Comprehensive Metabolic Prof ilon 02-12-2024 Albumin [Mass/Vol] 3.7 g/dL Normal 3.2-5.0 [facility] Comment on above: Order Comment: SE a ntibodies [facility]:[id number] Performed By: #### L 506.0400, L801.1541, L503.0105, L501.9520, L501.21480, L500.4050 ####[facility] [address] [place], [place], [address] Albumin/Globulin [Mass ratio] 1.1 {ratio} Normal 0.9-2.4 [facility] Comment on above: Order Comment: SE a ntibodies [facility]:[id number] Performed By: #### L 506.0400, L801.1541, L503.0105, L501.9520, L501.21150, L500.4050 ####[facility] [address] [place], [address] ALK P 76 U/L Normal 45-117 [facility] Comment on above: Order Comment: SE a ntibodies [facility]:[id number] Performed By: #### L 506.0400, L801.1541, L503.0105, L501.9520, L501.42617, L500.4050 ####[facility] [address] [place], [address] ALT [Catalytic activity/Vol] 31 U/L Normal 13-56 [facility] Comment on above: Order Comment: SE a ntibodies [facility]:[id number] Performed By: #### L 506.0400, L801.1541, L503.0105, L501.9520, L501.20529, L500.4050 ####[facility] [address] [place], [address] AST [Catalytic activity/Vol] 24 U/L Normal 15-37 [facility] Comment on above: Order Comment: SE a ntibodies [facility]:[id number] Performed By: #### L 506.0400, L801.1541, L503.0105, L501.9520, L501.62725, L500.4050 ####[facility] [address] [place], [address] Bilirubin [Mass/Vol] 0.80 mg/dL Normal 0.20-1.00 [facility] Comment on above: Order Comment: SE a ntibodies [facility]:[id number] Result Comment: For patients on eltrombopag therapy, use of Dimension Martin TBIL is not recommended. Performed By: #### L 506.0400, L801.1541, L503.0105, L501.9520, L501.36088, L500.4050 ####[facility] [address] [place], [address] BUN/CRE 21.2 RATIO High 10-20 [facility] Comment on above: Order Comment: SE a ntibodies [facility]:[id number] Performed By: #### L 506.0400, L801.1541, L503.0105, L501.9520, L501.06305, L500.4050 ####[facility] [address] [place], [address] CA,Total 9.6 mg/dL Normal 8.5-10.1 [facility] Comment on above: Order Comment: SE a ntibodies [facility]:[id number] Performed By: #### L 506.0400, L801.1541, L503.0105, L501.9520, L501.91246, L500.4050 ####[facility] [address] [place], [address] Chloride [Moles/Vol] 103 mmol/L Normal 98-107 [facility] Comment on above: Order Comment: SE a ntibodies [facility]:[id number] Performed By: #### L 506.0400, L801.1541, L503.0105, L501.9520, L501.75794, L500.4050 ####[facility] [address] [place], [address] CO2 [Moles/Vol] 30.0 mmol/L Normal 21.0-32.0 [facility] Comment on above: Order Comment: SE a ntibodies [facility]:[id number] Performed By: #### L 506.0400, L801.1541, L503.0105, L501.9520, L501.82198, L500.4050 ####[facility] [address] [place], [address] Creatinine [Mass/Vol] 1.13 mg/dL High 0.55-1.02 [facility] Comment on above: Order Comment: SE a ntibodies [facility]:[id number] Result Comment: The validity of the calculated GFR GFRAA in patients over 70 years has not been determined. Clinical correlation is essential. Performed By: #### L 506.0400, L801.1541, L503.0105, L501.9520, L501.86751, L500.4050 ####[facility] [address] [place], [address] EST GFR - AA 59 mL/min Low >60 [facility] Comment on above: Order Comment: SE kumar [place] [facility]:[id number] Result Comment: Afri can [place] GFR Calc Performed By: #### L 506.0400, L801.1541, L503.0105, L501.9520, L501.76251, L500.4050 ####[facility] [address] [place], [place], [address] GAP 7 Normal 5-15 [facility] Comment on above: Order Comment: SE kumar [place] [facility]:[id number] Performed By: #### L 506.0400, L801.1541, L503.0105, L501.9520, L501.43174, L500.4050 ####[facility] [address] [place], [address] GFR/1.73 sq M.predicted among non-blacks MDRD (S/P/Bld) [Vol rate/Area] 49 mL/min/{1.73_m2} Low >60 [facility] Comment on above: Order Comment: SE kumar [place] [facility]:[id number] Result Comment: Non- GFR Calc Performed By: #### L 506.0400, L801.1541, L503.0105, L501.9520, L501.67564, L500.4050 ####[facility] [address] [place], [address] Globulin (S) [Mass/Vol] 3.5 g/dL Normal 2.2-4.2 [facility] Comment on above: Order Comment: SE a ntibodies [facility]:[id number] Performed By: #### L 506.0400, L801.1541, L503.0105, L501.9520, L501.62271, L500.4050 ####[facility] [address] [place], [address] Glucose [Mass/Vol] 106 mg/dL Normal 74-106 [facility] Comment on above: Order Comment: SE a ntibodies [facility]:[id number] Result Comment: Fast ing Glucose result from 100 to 125 mg/dL suggests IMPAIRED HOMEOSTASIS per A.D.A. criteria. Performed By: #### L 506.0400, L801.1541, L503.0105, L501.9520, L501.08729, L500.4050 ####[facility] [address] [place], [address] Potassium [Moles/Vol] 3.6 mmol/L Normal 3.5-5.1 [facility] Comment on above: Order Comment: SE a ntibodies [facility]:[id number] Performed By: #### L 506.0400, L801.1541, L503.0105, L501.9520, L501.17569, L500.4050 ####[facility] [address] [place], [address] Sodium [Moles/Vol] 140 mmol/L Normal 136-145 [facility] Comment on above: Order Comment: SE a ntibodies [facility]:[id number] Performed By: #### L 506.0400, L801.1541, L503.0105, L501.9520, L501.09999, L500.4050 ####[facility] [address] [place], [address] T PROT 7.2 g/dL Normal 6.4-8.2 [facility] Comment on above: Order Comment: SE a ntibodies [facility]:[id number] Performed By: #### L 506.0400, L801.1541, L503.0105, L501.9520, L501.55733, L500.4050 ####[facility] [address] [place], [address] Urea nitrogen [Mass/Vol] 24 mg/dL High 7-18 [facility] Comment on above: Order Comment: SE a ntibodies [facility]:[id number] Performed By: #### L 506.0400, L801.1541, L503.0105, L501.9520, L501.68832, L500.4050 ####[facility] [address] [place], [address] Free T3on 02-12-2024 Free T3 [Mass/Vol] 1.8 pg/mL Low 2.18-3.98 [facility] Comment on above: Order Comment: SE a ntibodies [facility]:[id number] Performed By: #### L 506.0400, L801.1541, L503.0105, L501.9520, L501.92226, L500.4050 ####[facility] [address] [place], [address] T4 Free Directon 02-12-2024 T4 FREE DIRECT 1.12 ng/dL Normal 0.76-1.46 [facility] Comment on above: Order Comment: SE a ntibodies [facility]:[id number] Performed By: #### L 506.0400, L801.1541, L503.0105, L501.9520, L501.96103, L500.4050 ####[facility] [address] [place], [address] Thyroid Stim Hormone (TSH)on 02-12-2024 TSH 1.45 uIU/mL Normal 0.358-3.74 [facility] Comment on above: Order Comment: SE a ntibodies [facility]:[id number] Performed By: #### L 506.0400, L801.1541, L503.0105, L501.9520, L501.70228, L500.4050 ####[facility] [address] [place], [address] Vitamin B12on 02-12-2024 Cobalamin (Vitamin B12) [Mass/Vol] 1092 pg/mL High 211-911 [facility] Comment on above: Performed By: #### L 506.0400, L801.1541, L503.0105, L501.9520, L501.95275, L500.4050 ####[facility] [address] [place], [address] MR/BMS.IMBon 02-11-2024 MR/BMS.B [facility] [address] [place], [place] [address] OFFICE VISIT Date of Service: 02/11/24 MR#: [id number] Acct: [id number] Name: LAUREN ALCARAZ Rep #: [id number] : 1940 Provider: Dr. Chema williamson MD Age/Sex: 83/F Location: [facility] Status: Signed Intake Vital Signs 08/13/23 15:36 11/12/23 14:58 02/11/24 15:30 Height 4 ft 8 in 4 ft 8 in 4 ft 8 in Weight: 103 lb BMI 23.1 BP 120/70 Blood Pressure Location Lt brachial Position Sitting Respiration 16 Pulse 70 Pulse Source Monitor Temp 98.6 F Temp Source Temporal Pulse Oximetry (%) 94 Oxygen Delivery Method room air Intake Visit Reasons: 6 M FU Chief Complaint: 6m f/u Pulmonary Function Technologist Required: No Accompanied by: Self Is patient in pain?: No Allergies doxycycline Allergy (Mild, Verified 02/11/24 15:22) Vomiting oxycodone (From Percocet) Allergy (Mild, Verified 02/11/24 15:22) Confusion acetaminophen (From Darvocet-N) Allergy (Verified 02/11/24 15:22) Other lamotrigine (From Lamictal) Allergy (Verified 02/11/24 15:22) Lip Swelling latex Allergy (Verified 02/11/24 15:22) Rash moxifloxacin HCl (From Avelox) Allergy (Verified 02/11/24 15:22) Other propoxyphene napsylate (From Darvocet-N) Allergy (Verified 02/11/24 15:22) Other zolpidem tartrate (From Ambien) Adverse Reaction (Verified 02/11/24 15:22) Other Medications ???Medication ???Instructions ???Recorded ???Confirmed ???Type L.acidophil-L.casei-B.bifid -B.longum-FOS 1 cap PO DAILY Supplement 09/02/21 02/11/24 History 2 billion cell-50 mg capsule (Probiotic Blend) aspirin 81 mg tablet,delayed 81 mg PO DAILY 01/10/22 02/11/24 History release (Adult Aspirin Regimen) d-mannose 500 mg capsule 500 mg PO DAILY 06/07/22 02/11/24 History famotidine 10 mg tablet 10 mg PO BID 06/07/22 02/11/24 History multivitamin 1 tab PO DAILY 06/07/22 02/11/24 History mirabegron 50 mg tablet,extended 50 mg PO QHS Check with primary 01/29/23 02/11/24 History release 24 hr (Myrbetriq) doctor denosumab 60 mg/mL subcutaneous 60 mg subcut [id number] #1 mL 02/05/23 02/11/24 Rx syringe (Prolia) albuterol sulfate 2.5 mg/3 mL 2.5 mg (3 mL) inhalation Q6H PRN 04/07/23 02/11/24 Rx (0.083 %) solution for nebulization Sob /Or Wheezing #180 mL syringes BD ECLIPSE 04/11/23 02/11/24 History vortioxetine 20 mg tablet 20 mg PO DAILY DEPRESSION #90 tabs 04/22/23 02/11/24 Rx (Trintellix) gabapentin 100 mg capsule 100 mg PO DAILY PRN restless 06/09/23 02/11/24 Rx leg(s) #90 caps atorvastatin 40 mg tablet See Rx Instructions .Route 07/28/23 02/11/24 Rx .COMPLEX #90 tabs latanoprost 0.005 % eye drops 1 drp ophthalmic (eye) DAILY 08/13/23 02/11/24 History (Xalatan) lacosamide 100 mg tablet (Vimpat) 100 mg PO BID Check with primary 09/18/23 02/11/24 Rx doctor #180 tabs memantine 10 mg tablet 10 mg PO BID Alzheimer's #180 tabs 09/18/23 02/11/24 Rx furosemide 20 mg tablet 10 mg PO DAILY PRN 10/08/23 02/11/24 History ipratropium bromide 42 mcg (0.06 2 spray intranasal BID 10/08/23 02/11/24 History %) nasal spray levothyroxine 50 mcg tablet 50 mcg PO DAILY Thyroid #90 tabs 10/15/23 02/11/24 Rx donepezil 5 mg tablet (Aricept) 10 mg (2 x 5 mg) PO DAILY #90 tabs 11/12/23 02/11/24 Rx nitroglycerin 0.4 mg sublingual 0.4 mg sublingual Q5-15M PRN chest 11/12/23 02/11/24 Rx tablet pain #25 tabs BD Sry/needle eclips See Rx Instructions IM .COMPLEX 12/08/23 02/11/24 Rx #12 ea apixaban 5 mg tablet (Eliquis) 5 mg PO BID #180 tabs 12/08/23 02/11/24 Rx cyanocobalamin (vitamin B-12) 1,000 mcg IM QMONTH #10 mL 12/08/23 02/11/24 Rx 1,000 mcg/mL injection solution (Dodex) pramipexole 0.5 mg tablet 0.5 mg PO BID #180 tabs 12/30/23 02/11/24 Rx Have you fallen in the past year?: Yes [facility] Medical History (Updated 02/12/24 @ 08:[address] Chema Perry MD) Kyphoscoliosis deformity of spine Bee sting Lumbar contusion Contusion of thoracic wall Pain of left lower extremity Contact with and (suspected) exposure to other viral communicable diseases Contusion of left wrist Left elbow contusion Contusion of left shoulder Scalp contusion Injury of left elbow Injury of left shoulder Presence of stent in coronary artery ( 1989) Atherosclerotic heart disease of [place] coronary artery without angina pectoris Essential hypertension Influenza A Health care maintenance Falls frequently Cancer Depression Dementia Walker as ambulation aid Arthritis Bladder disease Low iron DVT (deep venous thrombosis) High cholesterol Restless legs Back pain TIA (transient ischemic attack) Seizures Difficulty swallowing Gastric reflux Non-smoker Asthma Shortness of breath on exertion Hx of echocardiogram History of stress test Hypertension Cardio (more content not included)... Normal [facility] Re-Evaluation - PT (1)on Re-Evaluation - PT (1) [facility] Physical Therapy [facility] [address] [place] [address] / REEVALUATION / MEDICARE RECERTIFICATION PHYSICAL THERAPY MR#: [id number] Acct: [id number] Name: LAUREN ALCARAZ Rep #: [id number] : 1940 83 From: Vincent Amado DPT, OCS, CSCS Referring Dr.: Dr. Chema Perry MD Status:REG RCR Insurance: MEDICARE PART A B [place] [id number] [id number] Re-Evaluation Intro: Dr. Chema Perry MD, It has been my pleasure to treat LAUREN ALCARAZ over the last 9 visits for dizzyness. Please see the progress note below for an update on the physical therapy plan of care! 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 Feeling steadier. No spinning and able to lie down and get up easily. Using walker to get around. Wants to benefit from more exercises. Saw WO for eval today and will be sent to CC. Gets ex at home in once per week due to fatigue on the other days. Objective Objective/Function: improved FGA and spinning is all but gone. Feels steadier and scoring better.Goals appropriate for 4 more weeks with new goal. Fair prognosis. Plan Plan Plan: 2x/week for 4 more weeks to mid February for 1. funcitonal FW weight shift(step up, sit to stand postural rows and FW weight shift to HEP as tolerates. 2. General Home based strength to help fight fatigue and get HEP in more frequently Ensure safety and confidence with current HEP Balance/Gait/Functional tests Balance/Special Test Scores Functional Gait Assessment Score: 21 % Disability: 30.0000 CATSIB Score (Max score 120 seconds): 85 Dizziness Score: 26 30 Second Chair Rise Test Seconds: 6 Goals Goals Goal 1:: lie down and sit up without dizzyness Goal Time Frame: 4-6 Weeks Goal Progress: Goal Met Goal 2:: Pt feel spinning is 90% better. Goal Time Frame: 4-6 Weeks Goal Progress: 50% Goal 3:: I appropriate balance ex to help maximize balance Goal Time Frame: 4-6 Weeks Goal Progress: Progressing Goal 4:: FGA score 21/30 to reduce fall risk Goal Time Frame: 4-6 Weeks Goal 5:: 20 or better DHI Goal Time Frame: 4-6 Weeks Goal Progress: Progressing Goal 6:: 10 30 SSTS test to show improved strength/mobility Goal Time Frame: 2-4 Weeks Goal Progress: NEW GOAL Anticipated Interventions Anticipated Interventions Patient/Client Instruction: Educate patient on: Condition and Plan of Care For the Purpose of:: To increase tolerance to activity/condition/position , To improve gait and locomotor functions and To improve safety with gait Therapeutic Exercise to Include: Balance training and Gait and locomotor training Comment: posoitional and vestibular ex For the Purpose of:: To improve muscle performance and motor function, To increase tolerance to activity/condition/position , To improve gait and locomotor functions and To improve safety Re-Evaluation Ending Re-evaluation ending: Please do not hesitate to contact me at [phone] by phone or if you have questions or concerns regarding this new plan of care! Sincerely, Vincent Amado DPT, OCS, CSCS 02/04/24 1601 CC: Dr. Chema Perry MD EBG Signed For Medicare only, by signing this I certify the plan of care. _ Physicians Signature Date Normal [facility] No Panel InformationOrdered By: Chema Perry on 10-14-2023 Free Triiodothyronine (T3) pg/dL 1.8 pg/mL 2.18-3.98 [facility] Serum or plasma thyroid stim ulating hormone (TSH) measurement (units/volume)Ordered By: Chema Perry on 10-14-2023 TSH Qn 1.27 uIU/mL 0.358-3.74 [facility] Thin prep Papanicolaou smear with manual screeningOrdered By: Chema Perry on 10-14-2023 Thin prep Papanicolaou smear with manual screening 1.20 ng/dL 0.76-1.46 [facility] Laboratory - Chemistry and C hemistry - challengeOrdered By: Chema Perry on 04-22-2023 Free T4 [Mass/Vol] 1.33 ng/dL 0.76-1.46 [facility] No Panel InformationOrdered By: Chema Perry on 04-22-2023 Free Triiodothyronine (T3) pg/dL 1.9 pg/mL 2.18-3.98 [facility] Thyroid Stimulating Hormone (TSH) 3.33 uIU/mL 0.358-3.74 [facility] Laboratory - Chemistry and C hemistry - challengeOrdered By: Dr. Perry on 01-15-2023 Free T4 [Mass/Vol] 1.10 ng/dL 0.76-1.46 [facility] No Panel InformationOrdered By: Dr. Perry on 01-15-2023 Free Triiodothyronine (T3) pg/dL 1.7 pg/mL 2.18-3.98 [facility] Thyroid Stimulating Hormone (TSH) 1.63 uIU/mL 0.358-3.74 [facility] MR Brain WO contraston 12-04 * * *Final Report* * * DATE OF EXAM: Dec 04 2022 2:13PM [facility] 3015 - MRI BRAIN W QUANT WO [...] 1.7; Ozzy 2008; also Luis Manuel 2010). DIVISION OF RADIOLOGY Provider, [facility] - 12/04/2022 * * *Final Report* * * DATE OF EXAM: Dec 04 2022 2:13PM [facility] 3015 - MRI BRAIN W QUANT WO [...] 1.7; Ozzy 2008; also Luis Manuel 2010). IMPRESSION IMPRESSION: * No evidence of an acute [...] = Focal Lesions 2 = Beginning of [place] 3 = Diffuse Involvement of Entire Region [...] results from the analysis charts for details. Synthetic Staple Extruder: ARTHUR Transcribe Date/Time: Dec 04 2022 2:45P Dictated by : SUSAN LOMELI MD This examination was interpreted and the report reviewed and electronically signed by: SUSAN LOMELI MD on Dec 04 2022 3:20PM [facility] MR Unspecified body region 3 D post processingon 12-04-2022 * * *Final Report* * * DATE OF EXAM: Dec 04 2022 2:13PM [facility] 0280 - MRI 3D POST PROCESSING / [...] dementia protocol and 3-D post-processing using the [employer] software at an independent workstation with concurrent [...] 1.7; Ozzy 2008; also Luis Manuel 2010). DIVISION OF RADIOLOGY Provider, [facility] - 12/04/2022 * * *Final Report* * * DATE OF EXAM: Dec 04 2022 2:13PM [facility] 0280 - MRI 3D POST PROCESSING / [...] 1.7; Ozzy 2008; also Luis Manuel 2010). IMPRESSION IMPRESSION: * No evidence of an acute [...] = Focal Lesions 2 = Beginning of [place] 3 = Diffuse Involvement of Entire Region [...] results from the analysis charts for details. Synthetic Staple Extruder: ARTHUR Transcribe Date/Time: Dec 04 2022 2:45P Dictated by : SUSAN LOMELI MD This examination was interpreted and the report reviewed and electronically signed by: SUSAN LOMELI MD on Dec 04 2022 3:20PM [facility] Panel Informationon 12-04 IMPRESSION: * No evidence of an acute [...] = Focal Lesions 2 = Beginning of [place] 3 = Diffuse Involvement of Entire Region [...] results from the analysis charts for details. Synthetic Staple Extruder: PSCB Transcribe Date/Time: Dec 04 2022 2:45P Dictated by : SUSAN LOMELI MD This examination was interpreted and the report reviewed and electronically signed by: SUSAN LOMELI MD on Dec 04 2022 3:20PM [facility] DIVISION OF RADIOLOGY Radiology Study observation (narrative) [facility] No Panel InformationOrdered By: Ccf Provider on 12-04-2022 [facility] Absolute lymphocyte countOrd ered By: Dr. Perry on 12-03-2022 Lymphocytes Auto (Unsp spec) [#/Vol] 1.62 10*3/uL 0.83-4.51 [facility] Basophil percentageOrdered B y: Dr. Perry on 12-03-2022 Basophils/100 WBC (Bld) 0.7 % 0-1 [facility] Bilirubin [Mass/Vol] 0.60 mg/dL 0.20-1.00 [facility] Comment on above: For patients on eltr ombopag therapy, use of Dimension Martin TBIL is not recommended. Chloride [Moles/Vol] 107 mmol/L 98-107 [facility] Cholesterol [Mass/Vol] 124 mg/dL <200 [facility] Comment on above: <200 mg/dL Desirable 200-240 mg/dL Borderline >240 mg/dL High Risk Eosinophils/100 WBC (Bld) 3.0 % 0-5 [facility] Glucose [Mass/Vol] 101 mg/dL 74-106 [facility] Comment on above: Fasting Glucose resu lt from 100 to 125 mg/dL suggests IMPAIRED HOMEOSTASIS per A.D.A. criteria. Neutrophils (Bld) [#/Vol] 3.5 10*3/uL 2.0-7.7 [facility] Neutrophils/100 WBC (Bld) 61.8 % 47-70 [facility] Potassium [Moles/Vol] 3.7 mmol/L 3.5-5.1 [facility] Protein [Mass/Vol] 7.1 g/dL 6.4-8.2 [facility] Sodium [Moles/Vol] 137 mmol/L 136-145 [facility] Triglyceride [Mass/Vol] 132 mg/dL <199 [facility] Comment on above: The drugs N-Acetylcy steine and Metamizole may falsely depress this assay.Serum Triglycerides Reference Interval Normal <150 mg/dL Borderline high 150 - 199 mg/dL High 200 - 499 mg/dL Very High > or = 500 mg/dL WBC (Bld) [#/Vol] 5.7 10*3/uL 4.4-11.0 [facility] Blood erythrocytes count (nu mber/volume)Ordered By: Dr. Perry on 12-03-2022 RBC (Bld) [#/Vol] 4.50 10*6/uL 4.2-5.4 [facility] Blood hemoglobin measurement (mass/volume)Ordered By: Dr. Perry on 12-03-2022 Hemoglobin (Bld) [Mass/Vol] 12.1 g/dL 12.0-15.0 [facility] Blood lymphocytes/100 leukoc ytesOrdered By: Dr. Perry on 12-03-2022 Lymphocytes/100 WBC (Bld) 28.5 % 19-41 [facility] Blood monocytes/100 leukocyt esOrdered By: Dr. Perry on 12-03-2022 Monocytes/100 WBC (Bld) 5.8 % 0-10 [facility] Blood platelet mean volumeOr dered By: Dr. Perry on 12-03-2022 Platelet mean volume (Bld) [Entitic vol] 10.2 fL 6.2-12.0 [facility] Determination of erythrocyte mean corpuscular volume (MCV)Ordered By: Dr. Perry on 12-03-2022 MCV (RBC) [Entitic vol] 86.0 fL 81-99 [facility] [facility] Hematocrit Auto (Bld) [Volum e fraction]Ordered By: Dr. Perry on 12-03-2022 Hematocrit (Bld) [Volume fraction] 38.7 % 37-47 [facility] Laboratory - Chemistry and C hemistry - challengeOrdered By: Dr. Perry on 12-03-2022 ALP [Catalytic activity/Vol] 70 U/L 45-117 [facility] ALT [Catalytic activity/Vol] 24 U/L 13-56 [facility] CO2 [Moles/Vol] 25.0 mmol/L 21.0-32.0 [facility] Cobalamin (Vitamin B12) [Mass/Vol] 1344 pg/mL 211-911 [facility] Free T4 [Mass/Vol] 1.23 ng/dL 0.76-1.46 [facility] Globulin (S) [Mass/Vol] 3.5 g/dL 2.2-4.2 [facility] Urea nitrogen/Creatinine [Mass ratio] 25.5 mg/mg 10-20 [facility] Laboratory - Hematology and Cell countsOrdered By: Dr. Perry on 12-03-2022 Erythrocyte distribution width (RBC) [Entitic vol] 51.3 fL 35.1-43.9 [facility] Erythrocyte distribution width (RBC) [Ratio] 16.1 % 11.6-14.6 [facility] Immature granulocytes/100 WBC (Bld) 0.200 % 0.0-0.9 [facility] Comment on above: IG% - Immature Granu locytes (promyelocytes, myelocytes and metamyelocytes) > 1% indicates that a LEFT SHIFT is Present. MCH (RBC) [Entitic mass] 26.9 pg 27.0-32.0 [facility] Nucleated RBC/100 WBC (Bld) [Ratio] 0 % 0-5 [facility] MCHC Auto (RBC) [Mass/Vol]Or dered By: Dr. Perry on 12-03-2022 MCHC (RBC) [Mass/Vol] 31.3 g/dL 32-36 [facility] No Panel InformationOrdered By: Dr. Perry on 12-03-2022 Estimated GFR (MDRD) Amer 86 mL/min >60 [facility] Comment on above: GFR Calc Estimated GFR (MDRD) Non-Af Amer 71 mL/min >60 [facility] Comment on above: Non- GFR Calc Free Triiodothyronine (T3) pg/dL 1.9 pg/mL 2.18-3.98 [facility] Thyroid Stimulating Hormone (TSH) 5.10 uIU/mL 0.358-3.74 [facility] Vitamin D 25-Hydroxy 54.4 ng/mL [facility] Comment on above: Vitamin D 25(OH) Sta tus Range Deficiency <20 ng/mL (50nmol/L) Insufficiency 20 - 30 ng/mL (50 - 75 nmol/L) Sufficiency 30 - 100 ng/mL (75 - 250 nmol/L) Toxicity >100 ng/mL (>250 nmol/L) Platelets bldOrdered By: Dr. Perry on 12-03-2022 Platelets (Bld) [#/Vol] 244 10*3/uL 150-450 [facility] Serum or plasma albumin osiris urement (mass/volume)Ordered By: Dr. Perry on 12-03-2022 Albumin [Mass/Vol] 3.6 g/dL 3.2-5.0 [facility] Serum or plasma albumin/glob ulin mass ratioOrdered By: Dr. Perry on 12-03-2022 Albumin/Globulin [Mass ratio] 1.0 {ratio} 0.9-2.4 [facility] Serum or plasma calcium osiris urement (mass/volume)Ordered By: Dr. Perry on 12-03-2022 Calcium [Mass/Vol] 8.7 mg/dL 8.5-10.1 [facility] Serum or plasma cholesterol in HDL measurement (mass/volume)Ordered By: Dr. Perry on 12-03-2022 Cholesterol in HDL [Mass/Vol] 42 mg/dL >40 [facility] Comment on above: The drugs N-Acetylcy steine and Metamizole may falsely depress this assay. Reference Range HDL <40 mg/dL Low HDL Cholesterol HDL >or= 60 mg/dL High HDL Cholesterol Serum or plasma cholesterol in VLDL measurement (mass/volume)Ordered By: Dr. Perry on 12-03-2022 Cholesterol in VLDL [Mass/Vol] 26 mg/dL 5-40 [facility] Serum or plasma creatinine m easurement (mass/volume)Ordered By: Dr. Perry on 12-03-2022 Creatinine [Mass/Vol] 0.82 mg/dL 0.55-1.02 [facility] Comment on above: The validity of the calculated GFR & GFRAA in patients over 70 years has not been determined. Clinical correlation is essential. Serum or plasma low density lipoprotein (LDL) cholesterol measurement (mass/volume)Ordered By: Dr. Perry on 12-03-2022 Cholesterol in LDL [Mass/Vol] 56 mg/dL 0-130 [facility] Serum or plasma urea nitroge n measurement (mass/volume)Ordered By: Dr. Perry on 12-03-2022 Urea nitrogen [Mass/Vol] 21 mg/dL 7-18 [facility] Thin prep Papanicolaou smear with manual screeningOrdered By: Dr. Perry on 12-03-2022 Thin prep Papanicolaou smear with manual screening 23 U/L 15-37 [facility] Thin prep Papanicolaou smear with manual screening 5 5-15 [facility] No Panel Informationon 10-23 POC SARS CoV-2 Antigen Negative [facility] Basophil percentageOrdered B y: Dr. Perry on 07-12-2022 Basophil percentage < 0.9 mg/dL 0.55-1.02 [facility] No Panel InformationOrdered By: Dr. Perry on 07-12-2022 Bedside Estimated GFR (eGFR) > 60.0000 mL/min >60 [facility] Laboratory - Microbiology an d Antimicrobial susceptibilityon 07-07-2022 SARS-CoV-2 (COVID-19) RNA LÁZARO+probe Ql (Unsp spec) Not detected [facility] No Panel Informationon 07-07 Influenza Types A,B Rapid (Clinic) Not detected [facility] Absolute lymphocyte counton 03-07-2022 Lymphocytes Auto (Unsp spec) [#/Vol] 2.14 10*3/uL 0.83-4.51 [facility] Work Phone: Basophil percentageon 2021 Basophils/100 WBC (Bld) 0.9 % 0-1 [facility] Work Phone: Bilirubin [Mass/Vol] 0.60 mg/dL 0.20-1.00 [facility] Work Phone: Comment on above: For patients on eltr ombopag therapy, use of Dimension Martin TBIL is not recommended. Chloride [Moles/Vol] 108 mmol/L 98-107 [facility] Work Phone: Eosinophils/100 WBC (Bld) 2.6 % 0-5 [facility] Work Phone: Glucose [Mass/Vol] 92 mg/dL 74-106 [facility] Work Phone: [phone] Neutrophils (Bld) [#/Vol] 3.7 10*3/uL 2.0-7.7 [facility] Work Phone: Neutrophils/100 WBC (Bld) 57.3 % 47-70 [facility] Work Phone: [phone] Potassium [Moles/Vol] 4.3 mmol/L 3.5-5.1 [facility] Work Phone: [phone] Protein [Mass/Vol] 7.3 g/dL 6.4-8.2 [facility] Work Phone: [phone] Sodium [Moles/Vol] 137 mmol/L 136-145 [facility] Work Phone: WBC (Bld) [#/Vol] 6.5 10*3/uL 4.4-11.0 [facility] Work Phone: [phone] Blood erythrocytes count (nu mber/volume)on 03-07-2022 RBC (Bld) [#/Vol] 4.68 10*6/uL 4.2-5.4 [facility] Work Phone: [phone] Blood hemoglobin measurement (mass/volume)on 03-07-2022 Hemoglobin (Bld) [Mass/Vol] 13.6 g/dL 12.0-15.0 [facility] Work Phone: Blood lymphocytes/100 leukoc yteson 03-07-2022 Lymphocytes/100 WBC (Bld) 32.9 % 19-41 [facility] Work Phone: [phone] Blood monocytes/100 leukocyt eson 03-07-2022 Monocytes/100 WBC (Bld) 6.0 % 0-10 [facility] Work Phone: Blood platelet mean volumeon 03-07-2022 Platelet mean volume (Bld) [Entitic vol] 11.1 fL 6.2-12.0 [facility] Work Phone: Determination of erythrocyte mean corpuscular volume (MCV)on 03-07-2022 MCV (RBC) [Entitic vol] 89.1 fL 81-99 [facility] Work Phone: Hematocrit Auto (Bld) [Volum e fraction]on 03-07-2022 Hematocrit (Bld) [Volume fraction] 41.7 % 37-47 [facility] Work Phone: Laboratory - Chemistry and C hemistry - challengeon 03-07-2022 ALP [Catalytic activity/Vol] 74 U/L 45-117 [facility] Work Phone: ALT [Catalytic activity/Vol] 17 U/L 13-56 [facility] Work Phone: CO2 [Moles/Vol] 23.0 mmol/L 21.0-32.0 [facility] Work Phone: Globulin (S) [Mass/Vol] 3.7 g/dL 2.2-4.2 [facility] Work Phone: Urea nitrogen/Creatinine [Mass ratio] 15.7 mg/mg 10-20 [facility] Work Phone: Laboratory - Hematology and Cell countson 03-07-2022 Erythrocyte distribution width (RBC) [Entitic vol] 43.3 fL 35.1-43.9 [facility] Work Phone: Erythrocyte distribution width (RBC) [Ratio] 13.2 % 11.6-14.6 [facility] Work Phone: Immature granulocytes/100 WBC (Bld) 0.300 % 0.0-0.9 [facility] Work Phone: Comment on above: IG% - Immature Granu locytes (promyelocytes, myelocytes and metamyelocytes) > 1% indicates that a LEFT SHIFT is Present. MCH (RBC) [Entitic mass] 29.1 pg 27.0-32.0 [facility] Work Phone: Nucleated RBC/100 WBC (Bld) [Ratio] 0 % 0-5 [facility] Work Phone: MCHC Auto (RBC) [Mass/Vol]on 03-07-2022 MCHC (RBC) [Mass/Vol] 32.6 g/dL 32-36 [facility] Work Phone: No Panel Informationon 03-07 Estimated GFR (MDRD) Amer 63 mL/min >60 [facility] Work Phone: Comment on above: GFR Calc Estimated GFR (MDRD) Non-Af Amer 52 mL/min >60 [facility] Work Phone: Comment on above: Non- GFR Calc Thyroid Stimulating Hormone (TSH) 2.09 uIU/mL 0.358-3.74 [facility] Work Phone: Vitamin D 25-Hydroxy 37.8 ng/mL [facility] Work Phone: Comment on above: Vitamin D 25(OH) Sta tus Range Deficiency <20 ng/mL (50nmol/L) Insufficiency 20 - 30 ng/mL (50 - 75 nmol/L) Sufficiency 30 - 100 ng/mL (75 - 250 nmol/L) Toxicity >100 ng/mL (>250 nmol/L) Platelets bldon 03-07-2022 Platelets (Bld) [#/Vol] 220 10*3/uL 150-450 [facility] Work Phone: Serum or plasma albumin osiris urement (mass/volume)on 03-07-2022 Albumin [Mass/Vol] 3.6 g/dL 3.2-5.0 [facility] Work Phone: Serum or plasma albumin/glob ulin mass ratioon 03-07-2022 Albumin/Globulin [Mass ratio] 1.0 {ratio} 0.9-2.4 [facility] Work Phone: Serum or plasma calcium osiris urement (mass/volume)on 03-07-2022 Calcium [Mass/Vol] 8.7 mg/dL 8.5-10.1 [facility] Work Phone: Serum or plasma creatinine m easurement (mass/volume)on 03-07-2022 Creatinine [Mass/Vol] 1.08 mg/dL 0.55-1.02 [facility] Work Phone: Comment on above: The validity of the calculated GFR & GFRAA in patients over 70 years has not been determined. Clinical correlation is essential. Serum or plasma urea nitroge n measurement (mass/volume)on 03-07-2022 Urea nitrogen [Mass/Vol] 17 mg/dL 7-18 [facility] Work Phone: Thin prep Papanicolaou smear with manual screeningon 03-07-2022 Thin prep Papanicolaou smear with manual screening 15 U/L 15-37 [facility] Work Phone: Thin prep Papanicolaou smear with manual screening 6 5-15 [facility] Work Phone: No Panel Informationon 02-25 Homocysteine 11.6 umol/L 3.2-10.7 [facility] Work Phone: Serum or plasma methylmalona te measurement (moles/volume)on 02-25-2022 Methylmalonate [Moles/Vol] 214 nmol/L 0-378 [facility] Work Phone: Comment on above: Performed at: [address] [id number] Director: Leanna Muse MD, Phone: [phone] Absolute lymphocyte counton 02-15-2022 Lymphocytes Auto (Unsp spec) [#/Vol] 0.52 10*3/uL 0.83-4.51 [facility] Work Phone: Basophil percentageon 2021 Basophil percentage 0-5 SEEN /hpf 0-5 [facility] Work Phone: Basophils/100 WBC (Bld) 0.3 % 0-1 [facility] Work Phone: Chloride [Moles/Vol] 108 mmol/L 98-107 [facility] Work Phone: Eosinophils/100 WBC (Bld) 0.7 % 0-5 [facility] Work Phone: Glucose [Mass/Vol] 100 mg/dL 74-106 [facility] Work Phone: Comment on above: Fasting Glucose resu lt from 100 to 125 mg/dL suggests IMPAIRED HOMEOSTASIS per A.D.A. criteria. Neutrophils (Bld) [#/Vol] 4.9 10*3/uL 2.0-7.7 [facility] Work Phone: [phone] Neutrophils/100 WBC (Bld) 85.0 % 47-70 [facility] Work Phone: Potassium [Moles/Vol] 3.9 mmol/L 3.5-5.1 [facility] Work Phone: Sodium [Moles/Vol] 137 mmol/L 136-145 [facility] Work Phone: WBC (Bld) [#/Vol] 5.8 10*3/uL 4.4-11.0 [facility] Work Phone: Bilirubin Test strip Ql (U)o n 02-15-2022 Bilirubin Ql (U) Negative Negative [facility] Work Phone: Blood erythrocytes count (nu mber/volume)on 02-15-2022 RBC (Bld) [#/Vol] 4.99 10*6/uL 4.2-5.4 [facility] Work Phone: Blood hemoglobin measurement (mass/volume)on 02-15-2022 Hemoglobin (Bld) [Mass/Vol] 14.4 g/dL 12.0-15.0 [facility] Work Phone: Blood lymphocytes/100 leukoc yteson 02-15-2022 Lymphocytes/100 WBC (Bld) 8.9 % 19-41 [facility] Work Phone: Blood manual differential co mment interpretation (narrative result)on 02-15-2022 Manual differential comment Jd (Bld) [Interp] See comment [facility] Work Phone: Comment on above: LYMPHOPENIA NOTED Blood monocytes/100 leukocyt eson 02-15-2022 Monocytes/100 WBC (Bld) 4.8 % 0-10 [facility] Work Phone: Blood platelet adequacy dete ction by light microscopyon 02-15-2022 Platelets LM Ql (Bld) ADEQUATE ADEQ [facility] Work Phone: Blood platelet mean volumeon 02-15-2022 Platelet mean volume (Bld) [Entitic vol] 10.8 fL 6.2-12.0 [facility] Work Phone: Determination of erythrocyte mean corpuscular volume (MCV)on 02-15-2022 MCV (RBC) [Entitic vol] 88.2 fL 81-99 [facility] Work Phone: Hematocrit Auto (Bld) [Volum e fraction]on 02-15-2022 Hematocrit (Bld) [Volume fraction] 44.0 % 37-47 [facility] Work Phone: Ketones Test strip Ql (U)on 02-15-2022 Ketones Ql (U) Negative Negative [facility] Work Phone: Laboratory - Chemistry and C hemistry - challengeon 02-15-2022 CO2 [Moles/Vol] 22.0 mmol/L 21.0-32.0 [facility] Work Phone: Urea nitrogen/Creatinine [Mass ratio] 15.1 mg/mg 10-20 [facility] Work Phone: Laboratory - Hematology and Cell countson 02-15-2022 Erythrocyte distribution width (RBC) [Entitic vol] 41.2 fL 35.1-43.9 [facility] Work Phone: Erythrocyte distribution width (RBC) [Ratio] 12.7 % 11.6-14.6 [facility] Work Phone: Immature granulocytes/100 WBC (Bld) 0.300 % 0.0-0.9 [facility] Work Phone: Comment on above: IG% - Immature Granu locytes (promyelocytes, myelocytes and metamyelocytes) > 1% indicates that a LEFT SHIFT is Present. MCH (RBC) [Entitic mass] 28.9 pg 27.0-32.0 [facility] Work Phone: Nucleated RBC/100 WBC (Bld) [Ratio] 0 % 0-5 [facility] Work Phone: MCHC Auto (RBC) [Mass/Vol]on 02-15-2022 MCHC (RBC) [Mass/Vol] 32.7 g/dL 32-36 [facility] Work Phone: Mucus LM Ql (Urine sed)on Mucus Ql (Urine sed) 0 SEEN /hpf [facility] Work Phone: Nitrite Test strip Ql (U)on 02-15-2022 Nitrite Ql (U) Positive Negative [facility] Work Phone: No Panel Informationon 02-15 Estimated Creatinine Clearance Calc 40.33 ml/min [facility] Work Phone: Estimated GFR (MDRD) Amer 99 mL/min >60 [facility] Work Phone: Comment on above: GFR Calc Estimated GFR (MDRD) Non-Af Amer 82 mL/min >60 [facility] Work Phone: Comment on above: Non- GFR Calc Platelets bldon 02-15-2022 Platelets (Bld) [#/Vol] 169 10*3/uL 150-450 [facility] Work Phone: Protein Test strip Ql (U)on 02-15-2022 Protein Ql (U) Negative Negative [facility] Work Phone: RBC morphologyon 02-15-2022 RBC morphology finding Nom (Bld) NORM C+C NORMAL NORM C&C [facility] Work Phone: Serum or plasma calcium osiris urement (mass/volume)on 02-15-2022 Calcium [Mass/Vol] 8.1 mg/dL 8.5-10.1 [facility] Work Phone: Serum or plasma creatinine m easurement (mass/volume)on 02-15-2022 Creatinine [Mass/Vol] 0.73 mg/dL 0.55-1.02 [facility] Work Phone: Comment on above: The validity of the calculated GFR & GFRAA in patients over 70 years has not been determined. Clinical correlation is essential. Serum or plasma urea nitroge n measurement (mass/volume)on 02-15-2022 Urea nitrogen [Mass/Vol] 11 mg/dL 7-18 [facility] Work Phone: Squamous epithelial cells de tection in urine sediment by light microscopyon 02-15-2022 Epithelial cells.squamous LM Ql (Urine sed) 0 SEEN /hpf 5-10 [facility] Work Phone: Thin prep Papanicolaou smear with manual screeningon 02-15-2022 Thin prep Papanicolaou smear with manual screening 7 5-15 [facility] Work Phone: Urine blood detectionon 07- RBC Ql (U) 25 /ul Negative [facility] Work Phone: RBC Ql (U) 0 SEEN /hpf 0-5 [facility] Work Phone: Urine clarityon 02-15-2022 Clarity (U) Clear Clear [facility] Work Phone: Urine color determinationon 02-15-2022 Color (U) Yellow Yellow [facility] Work Phone: Urine glucose detectionon Glucose Ql (U) Normal mg/dl Normal [facility] Work Phone: Urine leukocyte esterase det ection by dipstickon 02-15-2022 Leukocyte esterase Test strip Ql (U) 25 /ul Negative [facility] Work Phone: Urine pHon 02-15-2022 pH (U) 6.0 [pH] 5.0 - 8.0 [facility] Work Phone: Urine sediment bacteria coun t by microscopy (number/high power field)on 02-15-2022 Bacteria LM.HPF (Urine sed) [#/Area] 2 /[HPF] None Seen [facility] Work Phone: Urine specific gravity measu rementon 02-15-2022 Specific gravity (U) [Rel density] 1.010 1.002-1.030 [facility] Work Phone: Urobilinogen Auto test strip Ql (U)on 02-15-2022 Urobilinogen Ql (U) Normal mg/dl Normal [facility] Work Phone: Iron measurement (mass/mass) on 02-14-2022 Iron (Unsp spec) [Mass/Mass] 73 ug/dL 50-170 [facility] Work Phone: Laboratory - Chemistry and C hemistry - challengeon 02-14-2022 Cobalamin (Vitamin B12) [Mass/Vol] 318 pg/mL 211-911 [facility] Work Phone: Absolute lymphocyte counton 11-23-2021 Lymphocytes Auto (Unsp spec) [#/Vol] 1.90 10*3/uL 0.83-4.51 [facility] Work Phone: Basophil percentageon 2021 Basophils/100 WBC (Bld) 0.3 % 0-1 [facility] Work Phone: Bilirubin [Mass/Vol] 1.70 mg/dL 0.20-1.00 [facility] Work Phone: Comment on above: For patients on eltr ombopag therapy, use of Dimension Martin TBIL is not recommended. Chloride [Moles/Vol] 105 mmol/L 98-107 [facility] Work Phone: Eosinophils/100 WBC (Bld) 0.3 % 0-5 [facility] Work Phone: Glucose [Mass/Vol] 101 mg/dL 74-106 [facility] Work Phone: [phone] Comment on above: Fasting Glucose resu lt from 100 to 125 mg/dL suggests IMPAIRED HOMEOSTASIS per A.D.A. criteria. Neutrophils (Bld) [#/Vol] 10.2 10*3/uL 2.0-7.7 [facility] Work Phone: Neutrophils/100 WBC (Bld) 78.9 % 47-70 [facility] Work Phone: [phone] Potassium [Moles/Vol] 3.6 mmol/L 3.5-5.1 [facility] Work Phone: Protein [Mass/Vol] 7.5 g/dL 6.4-8.2 [facility] Work Phone: [phone] Sodium [Moles/Vol] 135 mmol/L 136-145 [facility] Work Phone: WBC (Bld) [#/Vol] 12.9 10*3/uL 4.4-11.0 [facility] Work Phone: Blood erythrocytes count (nu mber/volume)on 11-23-2021 RBC (Bld) [#/Vol] 4.29 10*6/uL 4.2-5.4 [facility] Work Phone: Blood hemoglobin measurement (mass/volume)on 11-23-2021 Hemoglobin (Bld) [Mass/Vol] 13.0 g/dL 12.0-15.0 [facility] Work Phone: Blood lymphocytes/100 leukoc yteson 11-23-2021 Lymphocytes/100 WBC (Bld) 14.7 % 19-41 [facility] Work Phone: [phone] Blood monocytes/100 leukocyt eson 11-23-2021 Monocytes/100 WBC (Bld) 5.3 % 0-10 [facility] Work Phone: Blood platelet mean volumeon 11-23-2021 Platelet mean volume (Bld) [Entitic vol] 11.3 fL 6.2-12.0 [facility] Work Phone: Determination of erythrocyte mean corpuscular volume (MCV)on 11-23-2021 MCV (RBC) [Entitic vol] 93.2 fL 81-99 [facility] Work Phone: Hematocrit Auto (Bld) [Volum e fraction]on 11-23-2021 Hematocrit (Bld) [Volume fraction] 40.0 % 37-47 [facility] Work Phone: Laboratory - Chemistry and C hemistry - challengeon 11-23-2021 ALP [Catalytic activity/Vol] 139 U/L 45-117 [facility] Work Phone: ALT [Catalytic activity/Vol] 15 U/L 13-56 [facility] Work Phone: CO2 [Moles/Vol] 21.0 mmol/L 21.0-32.0 [facility] Work Phone: Globulin (S) [Mass/Vol] 4.5 g/dL 2.2-4.2 [facility] Work Phone: Urea nitrogen/Creatinine [Mass ratio] 20.4 mg/mg 10-20 [facility] Work Phone: Laboratory - Hematology and Cell countson 11-23-2021 Erythrocyte distribution width (RBC) [Entitic vol] 45.5 fL 35.1-43.9 [facility] Work Phone: Erythrocyte distribution width (RBC) [Ratio] 13.3 % 11.6-14.6 [facility] Work Phone: Immature granulocytes/100 WBC (Bld) 0.500 % 0.0-0.9 [facility] Work Phone: Comment on above: IG% - Immature Granu locytes (promyelocytes, myelocytes and metamyelocytes) > 1% indicates that a LEFT SHIFT is Present. MCH (RBC) [Entitic mass] 30.3 pg 27.0-32.0 [facility] Work Phone: Nucleated RBC/100 WBC (Bld) [Ratio] 0 % 0-5 [facility] Work Phone: MCHC Auto (RBC) [Mass/Vol]on 11-23-2021 MCHC (RBC) [Mass/Vol] 32.5 g/dL 32-36 [facility] Work Phone: No Panel Informationon 11-23 Estimated GFR (MDRD) Amer 80 mL/min >60 [facility] Work Phone: Comment on above: GFR Calc Estimated GFR (MDRD) Non-Af Amer 66 mL/min >60 [facility] Work Phone: Comment on above: Non- GFR Calc Thyroid Stimulating Hormone (TSH) 2.66 uIU/mL 0.358-3.74 [facility] Work Phone: Vitamin D 25-Hydroxy 46.1 ng/mL [facility] Work Phone: Comment on above: Vitamin D 25(OH) Sta tus Range Deficiency <20 ng/mL (50nmol/L) Insufficiency 20 - 30 ng/mL (50 - 75 nmol/L) Sufficiency 30 - 100 ng/mL (75 - 250 nmol/L) Toxicity >100 ng/mL (>250 nmol/L) Platelets bldon 11-23-2021 Platelets (Bld) [#/Vol] 209 10*3/uL 150-450 [facility] Work Phone: Serum or plasma albumin osiris urement (mass/volume)on 11-23-2021 Albumin [Mass/Vol] 3.0 g/dL 3.2-5.0 [facility] Work Phone: Serum or plasma albumin/glob ulin mass ratioon 11-23-2021 Albumin/Globulin [Mass ratio] 0.7 {ratio} 0.9-2.4 [facility] Work Phone: Serum or plasma calcium osiris urement (mass/volume)on 11-23-2021 Calcium [Mass/Vol] 8.9 mg/dL 8.5-10.1 [facility] Work Phone: Serum or plasma creatinine m easurement (mass/volume)on 11-23-2021 Creatinine [Mass/Vol] 0.88 mg/dL 0.55-1.02 [facility] Work Phone: Comment on above: The validity of the calculated GFR & GFRAA in patients over 70 years has not been determined. Clinical correlation is essential. Serum or plasma urea nitroge n measurement (mass/volume)on 11-23-2021 Urea nitrogen [Mass/Vol] 18 mg/dL 7-18 [facility] Work Phone: Thin prep Papanicolaou smear with manual screeningon 11-23-2021 Thin prep Papanicolaou smear with manual screening 20 U/L 15-37 [facility] Work Phone: Thin prep Papanicolaou smear with manual screening 9 5-15 [facility] Work Phone: Absolute lymphocyte counton 10-06-2021 Lymphocytes Auto (Unsp spec) [#/Vol] 1.63 10*3/uL 0.83-4.51 [facility] Work Phone: Basophil percentageon 2021 Basophils/100 WBC (Bld) 0.7 % 0-1 [facility] Work Phone: Chloride [Moles/Vol] 107 mmol/L 98-107 [facility] Work Phone: Eosinophils/100 WBC (Bld) 1.1 % 0-5 [facility] Work Phone: Glucose [Mass/Vol] 104 mg/dL 74-106 [facility] Work Phone: Comment on above: Fasting Glucose resu lt from 100 to 125 mg/dL suggests IMPAIRED HOMEOSTASIS per A.D.A. criteria. Neutrophils (Bld) [#/Vol] 5.2 10*3/uL 2.0-7.7 [facility] Work Phone: Neutrophils/100 WBC (Bld) 69.3 % 47-70 [facility] Work Phone: Potassium [Moles/Vol] 3.8 mmol/L 3.5-5.1 [facility] [facility] Work Phone: Sodium [Moles/Vol] 137 mmol/L 136-145 [facility] Work Phone: WBC (Bld) [#/Vol] 7.5 10*3/uL 4.4-11.0 [facility] Work Phone: Blood erythrocytes count (nu mber/volume)on 10-06-2021 RBC (Bld) [#/Vol] 4.03 10*6/uL 4.2-5.4 [facility] Work Phone: Blood hemoglobin measurement (mass/volume)on 10-06-2021 Hemoglobin (Bld) [Mass/Vol] 12.6 g/dL 12.0-15.0 [facility] Work Phone: Blood lymphocytes/100 leukoc yteson 10-06-2021 Lymphocytes/100 WBC (Bld) 21.7 % 19-41 [facility] Work Phone: Blood monocytes/100 leukocyt eson 10-06-2021 Monocytes/100 WBC (Bld) 6.8 % 0-10 [facility] Work Phone: Blood platelet mean volumeon 10-06-2021 Platelet mean volume (Bld) [Entitic vol] 10.1 fL 6.2-12.0 [facility] Work Phone: Determination of erythrocyte mean corpuscular volume (MCV)on 10-06-2021 MCV (RBC) [Entitic vol] 91.6 fL 81-99 [facility] Work Phone: Hematocrit Auto (Bld) [Volum e fraction]on 10-06-2021 Hematocrit (Bld) [Volume fraction] 36.9 % 37-47 [facility] Work Phone: Laboratory - Chemistry and C hemistry - challengeon 10-06-2021 CO2 [Moles/Vol] 25.0 mmol/L 21.0-32.0 [facility] Work Phone: Urea nitrogen/Creatinine [Mass ratio] 32.1 mg/mg 10-20 [facility] Work Phone: Laboratory - Hematology and Cell countson 10-06-2021 Erythrocyte distribution width (RBC) [Entitic vol] 45.9 fL 35.1-43.9 [facility] Work Phone: Erythrocyte distribution width (RBC) [Ratio] 13.7 % 11.6-14.6 [facility] Work Phone: Immature granulocytes/100 WBC (Bld) 0.400 % 0.0-0.9 [facility] Work Phone: Comment on above: IG% - Immature Granu locytes (promyelocytes, myelocytes and metamyelocytes) > 1% indicates that a LEFT SHIFT is Present. MCH (RBC) [Entitic mass] 31.3 pg 27.0-32.0 [facility] Work Phone: Nucleated RBC/100 WBC (Bld) [Ratio] 0 % 0-5 [facility] Work Phone: MCHC Auto (RBC) [Mass/Vol]on 10-06-2021 MCHC (RBC) [Mass/Vol] 34.1 g/dL 32-36 [facility] Work Phone: No Panel Informationon 10-06 Estimated Creatinine Clearance Calc 40.18 ml/min [facility] Work Phone: Estimated GFR (MDRD) Amer 126 mL/min >60 [facility] Work Phone: Comment on above: GFR Calc Estimated GFR (MDRD) Non-Af Amer 104 mL/min >60 [facility] Work Phone: Comment on above: Non- GFR Calc Platelets bldon 10-06-2021 Platelets (Bld) [#/Vol] 207 10*3/uL 150-450 [facility] Work Phone: Serum or plasma calcium osiris urement (mass/volume)on 10-06-2021 Calcium [Mass/Vol] 8.3 mg/dL 8.5-10.1 [facility] Work Phone: Serum or plasma creatinine m easurement (mass/volume)on 10-06-2021 Creatinine [Mass/Vol] 0.59 mg/dL 0.55-1.02 [facility] Work Phone: Comment on above: The validity of the calculated GFR & GFRAA in patients over 70 years has not been determined. Clinical correlation is essential. Serum or plasma urea nitroge n measurement (mass/volume)on 10-06-2021 Urea nitrogen [Mass/Vol] 19 mg/dL 7-18 [facility] Work Phone: Thin prep Papanicolaou smear with manual screeningon 10-06-2021 Thin prep Papanicolaou smear with manual screening 5 5-15 [facility] Work Phone: Basophil percentageon 2021 Basophil percentage 0 SEEN /hpf [facility] Work Phone: Bilirubin [Mass/Vol] 0.70 mg/dL 0.20-1.00 [facility] Work Phone: Comment on above: For patients on eltr ombopag therapy, use of Dimension Martin TBIL is not recommended. Protein [Mass/Vol] 6.9 g/dL 6.4-8.2 [facility] Work Phone: Bilirubin Test strip Ql (U)o n 10-05-2021 Bilirubin Ql (U) Negative Negative [facility] Work Phone: Ketones Test strip Ql (U)on 10-05-2021 Ketones Ql (U) Negative Negative [facility] Work Phone: Laboratory - Chemistry and C hemistry - challengeon 10-05-2021 ALP [Catalytic activity/Vol] 139 U/L 45-117 [facility] Work Phone: ALT [Catalytic activity/Vol] 16 U/L 13-56 [facility] Work Phone: Globulin (S) [Mass/Vol] 3.9 g/dL 2.2-4.2 [facility] Work Phone: Mucus LM Ql (Urine sed)on Mucus Ql (Urine sed) 0 SEEN /hpf [facility] Work Phone: Nitrite Test strip Ql (U)on 10-05-2021 Nitrite Ql (U) Negative Negative [facility] Work Phone: No Panel Informationon 10-05 Troponin I High Sensitivity 8 pg/mL 3.0-54.0 [facility] Work Phone: Comment on above: Please Note: New Lamar t Units and Gender Specific Reference Ranges. For more information see Policy Stat Procedure Martin High Sensitivity Troponin (TNIH) and attachments. SARS-CoV-2 Antigen (Rapid) [facility] Work Phone: Protein Test strip Ql (U)on 10-05-2021 Protein Ql (U) 30 mg/dl Negative [facility] Work Phone: Serum or plasma albumin osiris urement (mass/volume)on 10-05-2021 Albumin [Mass/Vol] 3.0 g/dL 3.2-5.0 [facility] Work Phone: Serum or plasma albumin/glob ulin mass ratioon 10-05-2021 Albumin/Globulin [Mass ratio] 0.8 {ratio} 0.9-2.4 [facility] Work Phone: Squamous epithelial cells de tection in urine sediment by light microscopyon 10-05-2021 Epithelial cells.squamous LM Ql (Urine sed) 0-5 SEEN /hpf [facility] Work Phone: Thin prep Papanicolaou smear with manual screeningon 10-05-2021 Thin prep Papanicolaou smear with manual screening 12 U/L 15-37 [facility] Work Phone: Urine blood detectionon 09-18 RBC Ql (U) Negative Negative [facility] Work Phone: RBC Ql (U) 0 SEEN /hpf [facility] Work Phone: Urine clarityon 10-05-2021 Clarity (U) Clear Clear [facility] Work Phone: Urine color determinationon 10-05-2021 Color (U) Yellow Yellow [facility] Work Phone: Urine glucose detectionon Glucose Ql (U) Normal mg/dl Normal [facility] Work Phone: Urine leukocyte esterase det ection by dipstickon 10-05-2021 Leukocyte esterase Test strip Ql (U) Negative Negative [facility] Work Phone: Urine pHon 10-05-2021 pH (U) 6.0 [pH] [facility] Work Phone: Urine sediment bacteria coun t by microscopy (number/high power field)on 10-05-2021 Bacteria LM.HPF (Urine sed) [#/Area] 0 /[HPF] None Seen [facility] Work Phone: Urine specific gravity measu rementon 10-05-2021 Specific gravity (U) [Rel density] 1.020 [facility] Work Phone: Urobilinogen Auto test strip Ql (U)on 10-05-2021 Urobilinogen Ql (U) Normal mg/dl Normal [facility] Work Phone: Absolute lymphocyte counton 10-03-2021 Lymphocytes Auto (Unsp spec) [#/Vol] 1.64 10*3/uL 0.83-4.51 [facility] Work Phone: Basophil percentageon 2021 Basophils/100 WBC (Bld) 0.6 % 0-1 [facility] Work Phone: Chloride [Moles/Vol] 111 mmol/L 98-107 [facility] Work Phone: [phone] Eosinophils/100 WBC (Bld) 1.5 % 0-5 [facility] Work Phone: [phone] Glucose [Mass/Vol] 99 mg/dL 74-106 [facility] Work Phone: [phone] Neutrophils (Bld) [#/Vol] 4.5 10*3/uL 2.0-7.7 [facility] Work Phone: [phone] Neutrophils/100 WBC (Bld) 66.6 % 47-70 [facility] Work Phone: [phone] Potassium [Moles/Vol] 4.0 mmol/L 3.5-5.1 [facility] Work Phone: Sodium [Moles/Vol] 139 mmol/L 136-145 [facility] Work Phone: [phone] WBC (Bld) [#/Vol] 6.7 10*3/uL 4.4-11.0 [facility] Work Phone: Blood erythrocytes count (nu mber/volume)on 10-03-2021 RBC (Bld) [#/Vol] 4.12 10*6/uL 4.2-5.4 [facility] Work Phone: Blood hemoglobin measurement (mass/volume)on 10-03-2021 Hemoglobin (Bld) [Mass/Vol] 12.5 g/dL 12.0-15.0 [facility] Work Phone: [phone] Blood lymphocytes/100 leukoc yteson 10-03-2021 Lymphocytes/100 WBC (Bld) 24.4 % 19-41 [facility] Work Phone: Blood monocytes/100 leukocyt eson 10-03-2021 Monocytes/100 WBC (Bld) 6.5 % 0-10 [facility] Work Phone: Blood platelet mean volumeon 10-03-2021 Platelet mean volume (Bld) [Entitic vol] 9.7 fL 6.2-12.0 [facility] Work Phone: Determination of erythrocyte mean corpuscular volume (MCV)on 10-03-2021 MCV (RBC) [Entitic vol] 93.0 fL 81-99 [facility] Work Phone: Hematocrit Auto (Bld) [Volum e fraction]on 10-03-2021 Hematocrit (Bld) [Volume fraction] 38.3 % 37-47 [facility] Work Phone: Laboratory - Chemistry and C hemistry - challengeon 10-03-2021 CO2 [Moles/Vol] 26.0 mmol/L 21.0-32.0 [facility] Work Phone: Urea nitrogen/Creatinine [Mass ratio] 26.5 mg/mg 10-20 [facility] Work Phone: Laboratory - Hematology and Cell countson 10-03-2021 Erythrocyte distribution width (RBC) [Entitic vol] 46.9 fL 35.1-43.9 [facility] Work Phone: Erythrocyte distribution width (RBC) [Ratio] 13.7 % 11.6-14.6 [facility] Work Phone: Immature granulocytes/100 WBC (Bld) 0.400 % 0.0-0.9 [facility] Work Phone: Comment on above: IG% - Immature Granu locytes (promyelocytes, myelocytes and metamyelocytes) > 1% indicates that a LEFT SHIFT is Present. MCH (RBC) [Entitic mass] 30.3 pg 27.0-32.0 [facility] Work Phone: Nucleated RBC/100 WBC (Bld) [Ratio] 0 % 0-5 [facility] Work Phone: MCHC Auto (RBC) [Mass/Vol]on 10-03-2021 MCHC (RBC) [Mass/Vol] 32.6 g/dL 32-36 [facility] Work Phone: No Panel Informationon 10-03 Estimated Creatinine Clearance Calc 41.32 ml/min [facility] Work Phone: Estimated GFR (MDRD) Amer 107 mL/min >60 [facility] Work Phone: Comment on above: GFR Calc Estimated GFR (MDRD) Non-Af Amer 89 mL/min >60 [facility] Work Phone: Comment on above: Non- GFR Calc Platelets bldon 10-03-2021 Platelets (Bld) [#/Vol] 197 10*3/uL 150-450 [facility] Work Phone: Serum or plasma calcium osiris urement (mass/volume)on 10-03-2021 Calcium [Mass/Vol] 8.4 mg/dL 8.5-10.1 [facility] Work Phone: Serum or plasma creatinine m easurement (mass/volume)on 10-03-2021 Creatinine [Mass/Vol] 0.68 mg/dL 0.55-1.02 [facility] Work Phone: Comment on above: The validity of the calculated GFR & GFRAA in patients over 70 years has not been determined. Clinical correlation is essential. Serum or plasma urea nitroge n measurement (mass/volume)on 10-03-2021 Urea nitrogen [Mass/Vol] 18 mg/dL 7-18 [facility] Work Phone: Thin prep Papanicolaou smear with manual screeningon 10-03-2021 Thin prep Papanicolaou smear with manual screening 2 5-15 [facility] Work Phone: Basophil percentageon 2021 Bilirubin [Mass/Vol] 0.40 mg/dL 0.20-1.00 [facility] Work Phone: Comment on above: For patients on eltr ombopag therapy, use of Dimension Martin TBIL is not recommended. Protein [Mass/Vol] 5.9 g/dL 6.4-8.2 [facility] Work Phone: Laboratory - Chemistry and C hemistry - challengeon 09-21-2021 ALP [Catalytic activity/Vol] 112 U/L 45-117 [facility] Work Phone: ALT [Catalytic activity/Vol] 18 U/L 13-56 [facility] Work Phone: Globulin (S) [Mass/Vol] 3.3 g/dL 2.2-4.2 [facility] Work Phone: Serum or plasma albumin osiris urement (mass/volume)on 09-21-2021 Albumin [Mass/Vol] 2.6 g/dL 3.2-5.0 [facility] Work Phone: Serum or plasma albumin/glob ulin mass ratioon 09-21-2021 Albumin/Globulin [Mass ratio] 0.8 {ratio} 0.9-2.4 [facility] Work Phone: Thin prep Papanicolaou smear with manual screeningon 09-21-2021 Thin prep Papanicolaou smear with manual screening 14 U/L 15-37 [facility] Work Phone: Direct bilirubinon 2 Bilirubin.direct [Mass/Vol] 0.13 mg/dL 0.00-0.30 [facility] Work Phone: No Panel Informationon 09-19 SARS-CoV-2 Antigen (Rapid) SARS-CoV-2 (COVID 19) [facility] Work Phone: Basophil percentageon 2021 Basophil percentage 0 SEEN /hpf [facility] Work Phone: Bilirubin Test strip Ql (U)o n 09-18-2021 Bilirubin Ql (U) Negative Negative [facility] Work Phone: Culture, urineon 09-18-2021 Bacteria identified Cx Nom (U) Lactobacillus gasseri [facility] Work Phone: Ketones Test strip Ql (U)on 09-18-2021 Ketones Ql (U) 5 mg/dl Negative [facility] Work Phone: Mucus LM Ql (Urine sed)on Mucus Ql (Urine sed) 0 SEEN /hpf [facility] Work Phone: Nitrite Test strip Ql (U)on 09-18-2021 Nitrite Ql (U) Negative Negative [facility] Work Phone: Protein Test strip Ql (U)on 09-18-2021 Protein Ql (U) 30 mg/dl Negative [facility] Work Phone: Squamous epithelial cells de tection in urine sediment by light microscopyon 09-18-2021 Epithelial cells.squamous LM Ql (Urine sed) 0 SEEN /hpf [facility] Work Phone: Urine blood detectionon RBC Ql (U) 10 /ul Negative [facility] Work Phone: RBC Ql (U) 0 SEEN /hpf [facility] Work Phone: Urine clarityon 09-18-2021 Clarity (U) Clear Clear [facility] Work Phone: Urine color determinationon 09-18-2021 Color (U) Yellow Yellow [facility] Work Phone: Urine glucose detectionon Glucose Ql (U) Normal mg/dl Normal [facility] Work Phone: Urine leukocyte esterase det ection by dipstickon 09-18-2021 Leukocyte esterase Test strip Ql (U) Negative Negative [facility] Work Phone: Urine pHon 09-18-2021 pH (U) 5.0 [pH] [facility] Work Phone: Urine sediment bacteria coun t by microscopy (number/high power field)on 09-18-2021 Bacteria LM.HPF (Urine sed) [#/Area] 1 /[HPF] None Seen [facility] Work Phone: Urine specific gravity measu rementon 09-18-2021 Specific gravity (U) [Rel density] 1.020 [facility] Work Phone: Urobilinogen Auto test strip Ql (U)on 09-18-2021 Urobilinogen Ql (U) Normal mg/dl Normal [facility] Work Phone: [phone] Absolute lymphocyte counton 09-04-2021 Lymphocytes Auto (Unsp spec) [#/Vol] 1.36 10*3/uL 0.83-4.51 [facility] Work Phone: Basophil percentageon 2021 Basophils/100 WBC (Bld) 0.2 % 0-1 [facility] Work Phone: [phone] Chloride [Moles/Vol] 105 mmol/L 98-107 [facility] Work Phone: Eosinophils/100 WBC (Bld) 0.3 % 0-5 [facility] Work Phone: Glucose [Mass/Vol] 108 mg/dL 74-106 [facility] Work Phone: Comment on above: Fasting Glucose resu lt from 100 to 125 mg/dL suggests IMPAIRED HOMEOSTASIS per A.D.A. criteria. Neutrophils (Bld) [#/Vol] 7.0 10*3/uL 2.0-7.7 [facility] Work Phone: Neutrophils/100 WBC (Bld) 78.7 % 47-70 [facility] Work Phone: [phone] Potassium [Moles/Vol] 3.7 mmol/L 3.5-5.1 [facility] Work Phone: [phone] Sodium [Moles/Vol] 137 mmol/L 136-145 [facility] Work Phone: [phone] WBC (Bld) [#/Vol] 8.9 10*3/uL 4.4-11.0 [facility] Work Phone: Blood erythrocytes count (nu mber/volume)on 09-04-2021 RBC (Bld) [#/Vol] 4.17 10*6/uL 4.2-5.4 [facility] Work Phone: Blood hemoglobin measurement (mass/volume)on 09-04-2021 Hemoglobin (Bld) [Mass/Vol] 12.8 g/dL 12.0-15.0 [facility] Work Phone: Blood lymphocytes/100 leukoc yteson 09-04-2021 Lymphocytes/100 WBC (Bld) 15.2 % 19-41 [facility] Work Phone: Blood monocytes/100 leukocyt eson 09-04-2021 Monocytes/100 WBC (Bld) 5.3 % 0-10 [facility] Work Phone: Blood platelet mean volumeon 09-04-2021 Platelet mean volume (Bld) [Entitic vol] 9.9 fL 6.2-12.0 [facility] Work Phone: Determination of erythrocyte mean corpuscular volume (MCV)on 09-04-2021 MCV (RBC) [Entitic vol] 90.9 fL 81-99 [facility] Work Phone: Hematocrit Auto (Bld) [Volum e fraction]on 09-04-2021 Hematocrit (Bld) [Volume fraction] 37.9 % 37-47 [facility] Work Phone: Laboratory - Chemistry and C hemistry - challengeon 09-04-2021 CO2 [Moles/Vol] 26.0 mmol/L 21.0-32.0 [facility] Work Phone: Urea nitrogen/Creatinine [Mass ratio] 33.7 mg/mg 10-20 [facility] Work Phone: Laboratory - Hematology and Cell countson 09-04-2021 Erythrocyte distribution width (RBC) [Entitic vol] 42.4 fL 35.1-43.9 [facility] Work Phone: Erythrocyte distribution width (RBC) [Ratio] 12.8 % 11.6-14.6 [facility] Work Phone: Immature granulocytes/100 WBC (Bld) 0.300 % 0.0-0.9 [facility] Work Phone: Comment on above: IG% - Immature Granu locytes (promyelocytes, myelocytes and metamyelocytes) > 1% indicates that a LEFT SHIFT is Present. MCH (RBC) [Entitic mass] 30.7 pg 27.0-32.0 [facility] Work Phone: Nucleated RBC/100 WBC (Bld) [Ratio] 0 % 0-5 [facility] Work Phone: MCHC Auto (RBC) [Mass/Vol]on 09-04-2021 MCHC (RBC) [Mass/Vol] 33.8 g/dL 32-36 [facility] Work Phone: No Panel Informationon 09-04 Estimated Creatinine Clearance Calc 44.29 ml/min [facility] Work Phone: Estimated GFR (MDRD) Amer 126 mL/min >60 [facility] Work Phone: Comment on above: GFR Calc Estimated GFR (MDRD) Non-Af Amer 104 mL/min >60 [facility] Work Phone: Comment on above: Non- GFR Calc Platelets bldon 09-04-2021 Platelets (Bld) [#/Vol] 181 10*3/uL 150-450 [facility] Work Phone: Serum or plasma calcium osiris urement (mass/volume)on 09-04-2021 Calcium [Mass/Vol] 8.1 mg/dL 8.5-10.1 [facility] Work Phone: Serum or plasma creatinine m easurement (mass/volume)on 09-04-2021 Creatinine [Mass/Vol] 0.59 mg/dL 0.55-1.02 [facility] Work Phone: Comment on above: The validity of the calculated GFR & GFRAA in patients over 70 years has not been determined. Clinical correlation is essential. Serum or plasma urea nitroge n measurement (mass/volume)on 09-04-2021 Urea nitrogen [Mass/Vol] 20 mg/dL 7-18 [facility] Work Phone: Thin prep Papanicolaou smear with manual screeningon 09-04-2021 Thin prep Papanicolaou smear with manual screening 6 5-15 [facility] Work Phone: Laboratory - Chemistry and C hemistry - challengeon 09-03-2021 Magnesium [Mass/Vol] 2.0 mg/dL 1.6-2.6 [facility] Work Phone: No Panel Informationon 09-03 SARS-CoV-2 Antigen (Rapid) [facility] Work Phone: Bilirubin Test strip Ql (U)o n 09-02-2021 Bilirubin Ql (U) Negative Negative [facility] Work Phone: Culture, urineon 09-02-2021 Bacteria identified Cx Nom (U) Mixed Gram Pos & Gram Neg Org [facility] Work Phone: INR in Blood by Coagulation assayon 09-02-2021 INR Coag (Bld) [Relative time] 1.1 {INR} [facility] Work Phone: Ketones Test strip Ql (U)on 09-02-2021 Ketones Ql (U) Negative Negative [facility] Work Phone: Laboratory - Coagulationon 0 09-02-2021 aPTT Coag (Bld) [Time] 25.9 s 24.1-36.2 [facility] Work Phone: PT Coag (PPP) [Time] 14.0 s 11.7-14.9 [facility] Work Phone: Nitrite Test strip Ql (U)on 09-02-2021 Nitrite Ql (U) Negative Negative [facility] Work Phone: Protein Test strip Ql (U)on 09-02-2021 Protein Ql (U) 100 mg/dl Negative [facility] Work Phone: Urine blood detectionon 08-18 RBC Ql (U) 150 /ul Negative [facility] Work Phone: Urine clarityon 09-02-2021 Clarity (U) Turbid Clear [facility] Work Phone: Urine color determinationon 09-02-2021 Color (U) Yellow Yellow [facility] Work Phone: Urine glucose detectionon Glucose Ql (U) Normal mg/dl Normal [facility] Work Phone: Urine leukocyte esterase det ection by dipstickon 09-02-2021 Leukocyte esterase Test strip Ql (U) 500 /ul Negative [facility] Work Phone: Urine pHon 09-02-2021 pH (U) 5.0 [pH] [facility] Work Phone: Urine specific gravity measu rementon 09-02-2021 Specific gravity (U) [Rel density] 1.025 [facility] Work Phone: Urobilinogen Auto test strip Ql (U)on 09-02-2021 Urobilinogen Ql (U) Normal mg/dl Normal [facility] Work Phone: Culture, urine Bacteria identified Cx Nom (U) Presumptive E. coli [facility] Work Phone: VISUAL FIELD 24-2 OU (BOTH E YES) [facility] Vital Signs Date Time Vital Sign Value Performing Clinician Facility 12-23-2024 14:30-0400 Diastolic blood pressure 56 mm[Hg] Laisha Lizarraga APRN.[employer] Work Phone: [facility] 12-23-2024 14:30-0400 Heart rate 70 /min Laisha Lizarraga APRN.[employer] Work Phone: [facility] 12-23-2024 14:30-0400 Systolic blood pressure 121 mm[Hg] Laisha Lizarraga APRN.[employer] Work Phone: [facility] 12-20-2024 13:53-0400 Body mass index (BMI) [Ratio] 23.24 kg/m2 Sourav Marcial MD Work Phone: [facility] 12-20-2024 13:53-0400 Body weight 45.36 kg Sourav Marcial MD Work Phone: [facility] 12-20-2024 13:53-0400 Diastolic blood pressure 56 mm[Hg] Sourav Marcial MD Work Phone: [facility] 12-20-2024 13:53-0400 Heart rate 72 /min Sourav Marcial MD Work Phone: [facility] 12-20-2024 13:53-0400 Systolic blood pressure 108 mm[Hg] Sourav Marcial MD Work Phone: [facility] 12-19-2024 14:46-0400 Body mass index (BMI) [Ratio] 23.57 kg/m2 Krislyn Aberegg PA Work Phone: [facility] 12-19-2024 14:46-0400 Body temperature 98.8 [degF] Krislyn Aberegg PA Work Phone: [facility] 12-19-2024 14:46-0400 Body weight 46 kg Krislyn Aberegg PA Work Phone: [facility] 12-19-2024 14:46-0400 Diastolic blood pressure 71 mm[Hg] Krislyn Aberegg PA Work Phone: [facility] 12-19-2024 14:46-0400 Heart rate 71 /min Krislyn Aberegg PA Work Phone: [facility] 12-19-2024 14:46-0400 Respiratory rate 16 /min Krislyn Aberegg PA Work Phone: [facility] 12-19-2024 14:46-0400 SaO2% (BldA) [Mass fraction] 94 % Krislyn Aberegg PA Work Phone: [facility] 12-19-2024 14:46-0400 Systolic blood pressure 120 mm[Hg] Young VALENCIA Work Phone: [facility] 12-03-2024 11:29-0400 Body height 139.7 cm Anila De Paz MD Work Phone: [facility] 12-03-2024 11:29-0400 Body mass index (BMI) [Ratio] 24.03 kg/m2 Anila De Paz MD Work Phone: [facility] 12-03-2024 11:29-0400 Body weight 46.9 kg Anila De Paz MD Work Phone: [facility] 12-03-2024 11:29-0400 Diastolic blood pressure 48 mm[Hg] Anila De Paz MD Work Phone: [facility] 12-03-2024 11:29-0400 Heart rate 60 /min Anila De Paz MD Work Phone: [facility] 12-03-2024 11:29-0400 Systolic blood pressure 106 mm[Hg] Anila De Paz MD Work Phone: [facility] 11-03-2024 15:32-0400 Body mass index (BMI) [Ratio] 24.29 kg/m2 Denice Houstoner PA-C Work Phone: [facility] 11-03-2024 15:32-0400 Body weight 47.4 kg Denice Houstoner PA-C Work Phone: [facility] 11-03-2024 15:32-0400 Diastolic blood pressure 73 mm[Hg] Denice Houstoner PA-C Work Phone: [facility] 11-03-2024 15:32-0400 Heart rate 68 /min Denice Houstoner PA-C Work Phone: [facility] 11-03-2024 15:32-0400 SaO2% (BldA) [Mass fraction] 90 % Denice Houstoner PA-C Work Phone: [facility] 11-03-2024 15:32-0400 Systolic blood pressure 125 mm[Hg] Denice Jacobs PA-C Work Phone: [facility] 10-29-2024 13:27-0400 Body height 139.7 cm Anila De Paz MD Work Phone: [facility] 10-29-2024 13:27-0400 Body mass index (BMI) [Ratio] 24.29 kg/m2 Anila De Paz MD Work Phone: [facility] 10-29-2024 13:27-0400 Body weight 47.4 kg Anila De Paz MD Work Phone: [facility] 10-29-2024 13:27-0400 Diastolic blood pressure 51 mm[Hg] Anila De Paz MD Work Phone: [facility] 10-29-2024 13:27-0400 Heart rate 77 /min Anila De Paz MD Work Phone: [facility] 10-29-2024 13:27-0400 Systolic blood pressure 93 mm[Hg] Anila De Paz MD Work Phone: [facility] 10-22-2024 08:26-0500 Body mass index (BMI) [Ratio] 23.9 kg/m2 Dr. Chema Perry MD Work Phone: [facility] 10-22-2024 08:26-0500 Body temperature 97.4 [degF] Dr. Chema Perry MD Work Phone: [facility] 10-22-2024 08:26-0500 Body weight 46.[address] Chema Perry MD Work Phone: [facility] 10-22-2024 08:26-0500 Diastolic blood pressure 79 mm[Hg] Dr. Chema Perry MD Work Phone: [facility] 10-22-2024 08:26-0500 Heart rate 72 /min Dr. Chema Perry MD Work Phone: [facility] 10-22-2024 08:26-0500 Respiratory rate 18 /min Dr. Chema Perry MD Work Phone: [facility] 10-22-2024 08:26-0500 SaO2% (BldA) [Mass fraction] 93 % Dr. Chema Perry MD Work Phone: [facility] 10-22-2024 08:26-0500 Systolic blood pressure 125 mm[Hg] Dr. Chema Perry MD Work Phone: [facility] 10-14-2024 13:18-0500 Body height 139.[address] Chema Perry MD Work Phone: [facility] 10-14-2024 13:18-0500 Body mass index (BMI) [Ratio] 24.4 kg/m2 Dr. Chema Perry MD Work Phone: [facility] 10-14-2024 13:18-0500 Body temperature 98.4 [degF] Dr. Chema Perry MD Work Phone: [facility] 10-14-2024 13:18-0500 Body weight 47.[address] Chema Perry MD Work Phone: [facility] 10-14-2024 13:18-0500 Diastolic blood pressure 79 mm[Hg] Dr. Chema Perry MD Work Phone: [facility] 10-14-2024 13:18-0500 Heart rate 78 /min Dr. Chema Perry MD Work Phone: [facility] 10-14-2024 13:18-0500 Respiratory rate 16 /min Dr. Chema Perry MD Work Phone: [facility] 10-14-2024 13:18-0500 SaO2% (BldA) [Mass fraction] 90 % Dr. Chema Perry MD Work Phone: [facility] 10-14-2024 13:18-0500 Systolic blood pressure 113 mm[Hg] Dr. Chema Perry MD Work Phone: [facility] 10-13-2024 13:08-0500 Body height 139.7 cm Laisha Lizarraga APRN.[employer] Work Phone: [facility] 10-13-2024 13:08-0500 Body mass index (BMI) [Ratio] 23.47 kg/m2 Laisha Lizarraga APRN.[employer] MA[employer]GER Work Phone: [facility] 10-13-2024 13:08-0500 Body weight 45.81 kg Laisha Lizarraga APRN.[employer] MA[employer]GER Work Phone: [facility] 10-13-2024 13:08-0500 Diastolic blood pressure 43 mm[Hg] Laisha Lizarraga APRN.[employer] MANAGER Work Phone: [facility] 10-13-2024 13:08-0500 Heart rate 73 /min Laisha Lizarraga APRN.[employer] MANAGER Work Phone: [facility] 10-13-2024 13:08-0500 Systolic blood pressure 81 mm[Hg] Laisha Lizarraga APRN.[employer] MANAGER Work Phone: [facility] 10-08-2024 10:12-0500 Body height 142.2 cm Anila De Paz MD Work Phone: [facility] 10-08-2024 10:12-0500 Body mass index (BMI) [Ratio] 23.19 kg/m2 Anila De Paz MD Work Phone: [facility] 10-08-2024 10:12-0500 Body temperature 98.2 [degF] Anila De Paz MD Work Phone: [facility] 10-08-2024 10:12-0500 Body weight 46.9 kg Anila De Paz MD Work Phone: [facility] 10-08-2024 10:12-0500 Diastolic blood pressure 64 mm[Hg] Anila De Paz MD Work Phone: [facility] 10-08-2024 10:12-0500 Heart rate 68 /min Anila De Paz MD Work Phone: [facility] 10-08-2024 10:12-0500 Systolic blood pressure 137 mm[Hg] Anila De Paz MD Work Phone: [facility] 09-18-2024 10:18-0500 Body temperature 97.7 [degF] Dr. Chema Perry MD Work Phone: [facility] 09-18-2024 10:18-0500 Diastolic blood pressure 74 mm[Hg] Dr. Chema Perry MD Work Phone: [facility] 09-18-2024 10:18-0500 Heart rate 78 /min Dr. Chema Perry MD Work Phone: [facility] 09-18-2024 10:18-0500 Respiratory rate 18 /min Dr. Chema Perry MD Work Phone: [facility] 09-18-2024 10:18-0500 SaO2% (BldA) [Mass fraction] 98 % Dr. Chema Perry MD Work Phone: [facility] 09-18-2024 10:18-0500 Systolic blood pressure 154 mm[Hg] Dr. Chema Perry MD Work Phone: [facility] 09-18-2024 08:38-0500 Body mass index (BMI) [Ratio] 25.7 kg/m2 Dr. Chema Perry MD Work Phone: [facility] 09-18-2024 08:38-0500 Body weight 50.[address] Chema Perry MD Work Phone: [facility] 09-14-2024 13:49-0500 Body height 139.7 cm [facility] 1 Work Phone: [facility] 09-14-2024 13:49-0500 Body mass index (BMI) [Ratio] 24.5 kg/m2 Pac 1 Work Phone: [facility] 09-14-2024 13:49-0500 Body temperature 98.29 [degF] Pacc 1 Work Phone: [facility] 09-14-2024 13:49-0500 Body weight 47.81 kg Pacc 1 Work Phone: [facility] 09-14-2024 13:49-0500 Diastolic blood pressure 64 mm[Hg] Pacc 1 Work Phone: [facility] 09-14-2024 13:49-0500 Heart rate 71 /min Pacc 1 Work Phone: [facility] 09-14-2024 13:49-0500 Respiratory rate 12 /min Pacc 1 Work Phone: [facility] 09-14-2024 13:49-0500 SaO2% (BldA) [Mass fraction] 96 % Pacc 1 Work Phone: [facility] 09-14-2024 13:49-0500 Systolic blood pressure 124 mm[Hg] Pacc 1 Work Phone: [facility] 09-13-2024 15:50-0500 Diastolic blood pressure 74 mm[Hg] Alisa Haile MD Work Phone: [facility] 09-13-2024 15:50-0500 Heart rate 58 /min Alisa Haile MD Work Phone: [facility] 09-13-2024 15:50-0500 Respiratory rate 16 /min Alisa Haile MD Work Phone: [facility] 09-13-2024 15:50-0500 SaO2% (BldA) [Mass fraction] 96 % Alisa Haile MD Work Phone: [facility] 09-13-2024 15:50-0500 Systolic blood pressure 159 mm[Hg] Alisa Haile MD Work Phone: [facility] 09-13-2024 14:20-0500 Body temperature 97.9 [degF] Alisa Haile MD Work Phone: [facility] 09-03-2024 14:23-0500 Body height 142.2 cm Anila De Paz MD Work Phone: [facility] 09-03-2024 14:23-0500 Body mass index (BMI) [Ratio] 22.95 kg/m2 Anila De Paz MD Work Phone: [facility] 09-03-2024 14:23-0500 Body weight 46.4 kg Anila De Paz MD Work Phone: [facility] 09-03-2024 14:23-0500 Diastolic blood pressure 57 mm[Hg] Anila De Paz MD Work Phone: [facility] 09-03-2024 14:23-0500 Heart rate 72 /min Anila De Paz MD Work Phone: [facility] 09-03-2024 14:23-0500 Systolic blood pressure 108 mm[Hg] Anila De Paz MD Work Phone: [facility] 08-06-2024 09:50-0500 Body height 142.2 cm Denice Jacobs PA-C Work Phone: [facility] 08-06-2024 09:50-0500 Body mass index (BMI) [Ratio] 22.69 kg/m2 Denice Houstoner PA-C Work Phone: [facility] 08-06-2024 09:50-0500 Body weight 45.9 kg Denice Jacobs PA-C Work Phone: [facility] 08-06-2024 09:50-0500 Diastolic blood pressure 63 mm[Hg] Denice Houstoner PA-C Work Phone: [facility] 08-06-2024 09:50-0500 Heart rate 79 /min Denice Houstoner PA-C Work Phone: [facility] 08-06-2024 09:50-0500 SaO2% (BldA) [Mass fraction] 94 % Denice Jacobs PA-C Work Phone: [facility] 08-06-2024 09:50-0500 Systolic blood pressure 116 mm[Hg] Denice Houstonteri GARCIA Work Phone: [facility] 08-03-2024 15:36-0500 Diastolic blood pressure 74 mm[Hg] Sourav Marcial MD Work Phone: [facility] 08-03-2024 15:36-0500 Heart rate 75 /min Sourav Marcial MD Work Phone: [facility] 08-03-2024 15:36-0500 Systolic blood pressure 148 mm[Hg] Sourav Marcial MD Work Phone: [facility] 07-21-2024 17:24-0500 Body temperature 96.8 [degF] Eliazar Brown MD Work Phone: [facility] 07-21-2024 17:24-0500 Diastolic blood pressure 69 mm[Hg] Eliazar Brown MD Work Phone: [facility] 07-21-2024 17:24-0500 Heart rate 73 /min Eliazar Brown MD Work Phone: [facility] 07-21-2024 17:24-0500 Respiratory rate 16 /min Eliazar Brown MD Work Phone: [facility] 07-21-2024 17:24-0500 SaO2% (BldA) [Mass fraction] 92 % Eliazar Brown MD Work Phone: [facility] 07-21-2024 17:24-0500 Systolic blood pressure 132 mm[Hg] Eliazar Brown MD Work Phone: [facility] 07-21-2024 16:35-0500 Body height 142.2 cm Eliazar Brown MD Work Phone: [facility] 07-21-2024 16:35-0500 Body mass index (BMI) [Ratio] 21.97 kg/m2 Eliazar Brown MD Work Phone: [facility] 07-21-2024 16:35-0500 Body weight 44.45 kg Eliazar Brown MD Work Phone: [facility] 07-16-2024 14:35-0500 Body mass index (BMI) [Ratio] 19.79 kg/m2 Pacc 1 Work Phone: [facility] 07-16-2024 14:35-0500 Body weight 44.45 kg Pacc 1 Work Phone: [facility] 07-16-2024 14:35-0500 Diastolic blood pressure 81 mm[Hg] Pacc 1 Work Phone: [facility] 07-16-2024 14:35-0500 Heart rate 62 /min Pacc 1 Work Phone: [facility] 07-16-2024 14:35-0500 SaO2% (BldA) [Mass fraction] 96 % Pacc 1 Work Phone: [facility] 07-16-2024 14:35-0500 Systolic blood pressure 161 mm[Hg] Pacc 1 Work Phone: [facility] 07-07-2024 11:48-0500 Body mass index (BMI) [Ratio] 22.6 kg/m2 Dr. Chema Perry MD Work Phone: [facility] 07-07-2024 11:48-0500 Body temperature 98.6 [degF] Dr. Chema Perry MD Work Phone: [facility] 07-07-2024 11:48-0500 Body weight 45.[address] Chema Perry MD Work Phone: [facility] 07-07-2024 11:48-0500 Diastolic blood pressure 83 mm[Hg] Dr. Chema Perry MD Work Phone: [facility] 07-07-2024 11:48-0500 Heart rate 58 /min Dr. Chema Perry MD Work Phone: [facility] 07-07-2024 11:48-0500 Respiratory rate 16 /min Dr. Chema Perry MD Work Phone: [facility] 07-07-2024 11:48-0500 SaO2% (BldA) [Mass fraction] 92 % Dr. Chema Perry MD Work Phone: [facility] 07-07-2024 11:48-0500 Systolic blood pressure 160 mm[Hg] Dr. Chema Perry MD Work Phone: [facility] 07-01-2024 13:25-0500 Body height 149.9 cm Laisha Lizarraga APRN.[employer]GER Work Phone: [facility] 07-01-2024 13:25-0500 Body mass index (BMI) [Ratio] 19.87 kg/m2 Laisha Lizarraga APRN.[employer]GER Work Phone: [facility] 07-01-2024 13:25-0500 Body weight 44.63 kg Laisha Lizarraga APRN.[employer] MANAGER Work Phone: [facility] 07-01-2024 13:25-0500 Diastolic blood pressure 64 mm[Hg] Laisha Lizarraga APRN.[employer] MANAGER Work Phone: [facility] 07-01-2024 13:25-0500 Heart rate 80 /min Laisha Lizarraga APRN.[employer] MANAGER Work Phone: [facility] 07-01-2024 13:25-0500 Systolic blood pressure 106 mm[Hg] Laisha Lizarraga APRN.[employer] MANAGER Work Phone: [facility] 06-18-2024 12:44-0400 Body height 149.9 cm Anila De Paz MD Work Phone: [facility] 06-18-2024 12:44-0400 Body mass index (BMI) [Ratio] 20.47 kg/m2 Anila De Paz MD Work Phone: [facility] 06-18-2024 12:44-0400 Body weight 46 kg Anila De Paz MD Work Phone: [facility] 06-18-2024 12:44-0400 Diastolic blood pressure 56 mm[Hg] Anila De Paz MD Work Phone: [facility] 06-18-2024 12:44-0400 Heart rate 68 /min Anila De Paz MD Work Phone: [facility] 06-18-2024 12:44-0400 Systolic blood pressure 111 mm[Hg] Anila De Paz MD Work Phone: [facility] 05-17-2024 15:07-0400 Body mass index (BMI) [Ratio] 21.17 kg/m2 Susan Squires MD Work Phone: [facility] 05-17-2024 15:07-0400 Body temperature 97.2 [degF] Susan Squires MD Work Phone: [facility] 05-17-2024 15:07-0400 Body weight 47.54 kg Susan Squires MD Work Phone: [facility] 05-17-2024 15:07-0400 Diastolic blood pressure 72 mm[Hg] Susan Squires MD Work Phone: [facility] 05-17-2024 15:07-0400 Heart rate 78 /min Susan Squires MD Work Phone: [facility] 05-17-2024 15:07-0400 SaO2% (BldA) [Mass fraction] 92 % Susan Squires MD Work Phone: [facility] 05-17-2024 15:07-0400 Systolic blood pressure 138 mm[Hg] Susan Squires MD Work Phone: [facility] 03-25-2024 13:38-0400 Body height 149.9 cm Laisha Lizarraga APRN.CNP Work Phone: [facility] 03-25-2024 13:38-0400 Body mass index (BMI) [Ratio] 20.2 kg/m2 Laisha Lizarraga APRN.CNP Work Phone: [facility] 03-25-2024 13:38-0400 Body weight 45.36 kg Laisha Lizarraga DIRECTOR [employer]GER Work Phone: [facility] 03-25-2024 13:38-0400 Diastolic blood pressure 81 mm[Hg] Laisha Aguilarlissettecicihakeem BOTELLO.[employer] MANAGER Work Phone: [facility] 03-25-2024 13:38-0400 Heart rate 68 /min Laisha Aguilarlissettecicihakeem DIRECTOR [employer] MANAGER Work Phone: [facility] 03-25-2024 13:38-0400 Systolic blood pressure 137 mm[Hg] Laisha Lizarraga DIRECTOR [employer] MANAGER Work Phone: [facility] 11-12-2023 14:58-0400 Body height 142.[address] Chema Perry Work Phone: [facility] 11-12-2023 14:58-0400 Body mass index (BMI) [Ratio] 22.4 kg/m2 Dr. Chema Perry Work Phone: [facility] 11-12-2023 14:58-0400 Body weight 45.[address] Chema Perry Work Phone: [facility] 11-12-2023 14:58-0400 Diastolic blood pressure 71 mm[Hg] Dr. Chema Perry Work Phone: [facility] 11-12-2023 14:58-0400 Heart rate 71 /min Dr. Chema Perry Work Phone: [facility] 11-12-2023 14:58-0400 Respiratory rate 18 /min Dr. Chema Perry Work Phone: [facility] 11-12-2023 14:58-0400 SaO2% (BldA) [Mass fraction] 97 % Dr. Chema Perry Work Phone: [facility] 11-12-2023 14:58-0400 Systolic blood pressure 114 mm[Hg] Dr. Chema Perry Work Phone: [facility] 10-16-2023 14:36-0500 Diastolic blood pressure 55 mm[Hg] Laisha Lizarraga APRN.[employer] MANAGER Work Phone: [facility] 10-16-2023 14:36-0500 Heart rate 79 /min Laisha Lizarraga APRN.[employer] MANAGER Work Phone: [facility] 10-16-2023 14:36-0500 Systolic blood pressure 107 mm[Hg] Laisha Zia ROSASRECEPTION CENTRE MANAGER Work Phone: [facility] 10-08-2023 14:26-0500 Body height 142.[address] Chema Perry Work Phone: [facility] 10-08-2023 14:26-0500 Body mass index (BMI) [Ratio] 22.1 kg/m2 Dr. Chema Perry Work Phone: [facility] 10-08-2023 14:26-0500 Body temperature 97.8 [degF] Dr. Chema Perry Work Phone: [facility] 10-08-2023 14:26-0500 Body weight 44.[address] Chema Perry Work Phone: [facility] 10-08-2023 14:26-0500 Diastolic blood pressure 75 mm[Hg] Dr. Chema Perry Work Phone: [facility] 10-08-2023 14:26-0500 Heart rate 73 /min Dr. Chema Perry Work Phone: [facility] 10-08-2023 14:26-0500 Respiratory rate 16 /min Dr. Chema Perry Work Phone: [facility] 10-08-2023 14:26-0500 SaO2% (BldA) [Mass fraction] 96 % Dr. Chema Perry Work Phone: [facility] 10-08-2023 14:26-0500 Systolic blood pressure 127 mm[Hg] Dr. Chema Perry Work Phone: [facility] 09-24-2023 09:59-0500 Body mass index (BMI) [Ratio] 23.1 kg/m2 Dr. Chema Perry Work Phone: [facility] 09-24-2023 09:59-0500 Body temperature 97.3 [degF] Dr. Chema Perry Work Phone: [facility] 09-24-2023 09:59-0500 Body weight 46.[address] Chema Perry Work Phone: [facility] 09-24-2023 09:59-0500 Diastolic blood pressure 76 mm[Hg] Dr. Chema Perry Work Phone: [facility] 09-24-2023 09:59-0500 Heart rate 77 /min Dr. Chema Perry Work Phone: [facility] 09-24-2023 09:59-0500 Respiratory rate 16 /min Dr. Chema Perry Work Phone: [facility] 09-24-2023 09:59-0500 SaO2% (BldA) [Mass fraction] 93 % Dr. Chema Perry Work Phone: [facility] 09-24-2023 09:59-0500 Systolic blood pressure 126 mm[Hg] Dr. Chema Perry Work Phone: [facility] 08-13-2023 15:36-0500 Body mass index (BMI) [Ratio] 23.6 kg/m2 Dr. Chema Perry Work Phone: [facility] 08-13-2023 15:36-0500 Body temperature 96.4 [degF] Dr. Chema Perry Work Phone: [facility] 08-13-2023 15:36-0500 Body weight 47.[address] Chema Perry Work Phone: [facility] 08-13-2023 15:36-0500 Diastolic blood pressure 83 mm[Hg] Dr. Chema Perry Work Phone: [facility] 08-13-2023 15:36-0500 Heart rate 71 /min Dr. Chema Perry Work Phone: [facility] 08-13-2023 15:36-0500 Respiratory rate 16 /min Dr. Chema Perry Work Phone: [facility] 08-13-2023 15:36-0500 SaO2% (BldA) [Mass fraction] 90 % Dr. Chema ePrry Work Phone: [facility] 08-13-2023 15:36-0500 Systolic blood pressure 127 mm[Hg] Dr. Chema Perry Work Phone: [facility] 06-16-2023 13:40-0400 Body weight 48.08 kg Laisha Lizarraga APRN.[employer]GER Work Phone: [facility] 06-16-2023 13:40-0400 Diastolic blood pressure 72 mm[Hg] Laisha Lizarraga APRN.[employer] MANAGER Work Phone: [facility] 06-16-2023 13:40-0400 Heart rate 81 /min Laisha Lizarraga APRN.[employer] MANAGER Work Phone: [facility] 06-16-2023 13:40-0400 Systolic blood pressure 118 mm[Hg] Laisha Lizarraga APRN.[employer] MANAGER Work Phone: [facility] 05-15-2023 14:11-0400 Body height 142.[address] Chema Perry Work Phone: [facility] 05-12-2023 11:40-0400 Body mass index (BMI) [Ratio] 24.4 kg/m2 Dr. Chema Perry Work Phone: [facility] 05-12-2023 11:40-0400 Body weight 49.[address] Chema Perry Work Phone: [facility] 05-12-2023 11:40-0400 Diastolic blood pressure 72 mm[Hg] Dr. Chema Perry Work Phone: [facility] 05-12-2023 11:40-0400 Heart rate 73 /min Dr. Chema Perry Work Phone: [facility] 05-12-2023 11:40-0400 Respiratory rate 18 /min Dr. Chema Perry Work Phone: [facility] 05-12-2023 11:40-0400 SaO2% (BldA) [Mass fraction] 96 % Dr. Chema Perry Work Phone: [facility] 05-12-2023 11:40-0400 Systolic blood pressure 111 mm[Hg] Dr. Chema Perry Work Phone: [facility] 04-07-2023 13:32-0400 Body height 142.[address] Chema Perry Work Phone: [facility] 04-07-2023 13:32-0400 Body mass index (BMI) [Ratio] 23.2 kg/m2 Dr. Chema Perry Work Phone: [facility] 04-07-2023 13:32-0400 Body temperature 96.9 [degF] Dr. Chema Perry Work Phone: [facility] 04-07-2023 13:32-0400 Body weight 46.[address] Chema Perry Work Phone: [facility] 04-07-2023 13:32-0400 Diastolic blood pressure 88 mm[Hg] Dr. Chema Perry Work Phone: [facility] 04-07-2023 13:32-0400 Heart rate 79 /min Dr. Chema Perry Work Phone: [facility] 04-07-2023 13:32-0400 Respiratory rate 18 /min Dr. Chema Perry Work Phone: [facility] 04-07-2023 13:32-0400 SaO2% (BldA) [Mass fraction] 95 % Dr. Chema Perry Work Phone: [facility] 04-07-2023 13:32-0400 Systolic blood pressure 142 mm[Hg] Dr. Chema Perry Work Phone: [facility] 04-02-2023 04:28-0400 Body height 142.[address] Chema Perry Work Phone: [facility] 04-02-2023 04:28-0400 Body mass index (BMI) [Ratio] 21.2 kg/m2 Dr. Chema Perry Work Phone: [facility] 04-02-2023 04:28-0400 Body temperature 98.3 [degF] Dr. Chema Perry Work Phone: [facility] 04-02-2023 04:28-0400 Body weight 42.[address] Chema Perry Work Phone: [facility] 04-02-2023 04:28-0400 Diastolic blood pressure 98 mm[Hg] Dr. Chema Perry Work Phone: [facility] 04-02-2023 04:28-0400 Heart rate 79 /min Dr. Chema Perry Work Phone: [facility] 04-02-2023 04:28-0400 Respiratory rate 15 /min Dr. Chema Perry Work Phone: [facility] 04-02-2023 04:28-0400 SaO2% (BldA) [Mass fraction] 99 % Dr. Chema Perry Work Phone: [facility] 04-02-2023 04:28-0400 Systolic blood pressure 184 mm[Hg] Dr. Chema Perry Work Phone: [facility] 03-24-2023 11:37-0400 Body mass index (BMI) [Ratio] 25.1 kg/m2 Dr. Chema Perry Work Phone: [facility] 03-24-2023 11:37-0400 Body temperature 98.1 [degF] Dr. Chema Perry Work Phone: [facility] 03-24-2023 11:37-0400 Body weight 50.[address] Chema Perry Work Phone: [facility] 03-24-2023 11:37-0400 Diastolic blood pressure 78 mm[Hg] Dr. Chema Perry Work Phone: [facility] 03-24-2023 11:37-0400 Heart rate 74 /min Dr. Chema Perry Work Phone: [facility] 03-24-2023 11:37-0400 Respiratory rate 12 /min Dr. Chema Perry Work Phone: [facility] 03-24-2023 11:37-0400 SaO2% (BldA) [Mass fraction] 93 % Dr. Chema Perry Work Phone: [facility] 03-24-2023 11:37-0400 Systolic blood pressure 147 mm[Hg] Dr. Chema Perry Work Phone: [facility] 02-12-2023 14:09-0400 Body height 149.[address] Chema Perry Work Phone: [facility] 02-12-2023 14:09-0400 Body mass index (BMI) [Ratio] 22.1 kg/m2 Dr. Chema Perry Work Phone: [facility] 02-12-2023 14:09-0400 Body temperature 98.2 [degF] Dr. Chema Perry Work Phone: [facility] 02-12-2023 14:09-0400 Body weight 49.[address] Chema Perry Work Phone: [facility] 02-12-2023 14:09-0400 Diastolic blood pressure 82 mm[Hg] Dr. Chema Perry Work Phone: [facility] 02-12-2023 14:09-0400 Heart rate 82 /min Dr. Chema Perry Work Phone: [facility] 02-12-2023 14:09-0400 Respiratory rate 16 /min Dr. Chema Perry Work Phone: [facility] 02-12-2023 14:09-0400 SaO2% (BldA) [Mass fraction] 91 % Dr. Chema Perry Work Phone: [facility] 02-12-2023 14:09-0400 Systolic blood pressure 147 mm[Hg] Dr. Chema Perry Work Phone: [facility] 01-29-2023 15:38-0400 Body height 149.[address] Chema Perry Work Phone: [facility] 01-29-2023 15:38-0400 Body mass index (BMI) [Ratio] 23.1 kg/m2 Dr. Chema Perry Work Phone: [facility] 01-29-2023 15:38-0400 Body temperature 97.4 [degF] Dr. Chema Perry Work Phone: [facility] 01-29-2023 15:38-0400 Body weight 51.[address] Chema Perry Work Phone: [facility] 01-29-2023 15:38-0400 Diastolic blood pressure 82 mm[Hg] Dr. Chema Perry Work Phone: [facility] 01-29-2023 15:38-0400 Heart rate 78 /min Dr. Chema Perry Work Phone: [facility] 01-29-2023 15:38-0400 Respiratory rate 16 /min Dr. Chema Perry Work Phone: [facility] 01-29-2023 15:38-0400 SaO2% (BldA) [Mass fraction] 92 % Dr. Chema Perry Work Phone: [facility] 01-29-2023 15:38-0400 Systolic blood pressure 130 mm[Hg] Dr. Chema Perry Work Phone: [facility] 01-20-2023 09:09-0400 Body temperature 98 [degF] Dr. Chema Perry Work Phone: [facility] 01-20-2023 09:09-0400 Diastolic blood pressure 66 mm[Hg] Dr. Chema Perry Work Phone: [facility] 01-20-2023 09:09-0400 Heart rate 70 /min Dr. Chema Perry Work Phone: [facility] 01-20-2023 09:09-0400 Respiratory rate 16 /min Dr. Chema Perry Work Phone: [facility] 01-20-2023 09:09-0400 SaO2% (BldA) [Mass fraction] 94 % Dr. Chema Perry Work Phone: [facility] 01-20-2023 09:09-0400 Systolic blood pressure 108 mm[Hg] Dr. Chema Perry Work Phone: [facility] 01-15-2023 13:53-0400 Body height 149.[address] Chema Perry Work Phone: [facility] 01-15-2023 13:53-0400 Body mass index (BMI) [Ratio] 23.1 kg/m2 Dr. Chema Perry Work Phone: [facility] 01-15-2023 13:53-0400 Body temperature 97.4 [degF] Dr. Chema Perry Work Phone: [facility] 01-15-2023 13:53-0400 Body weight 51.[address] Chema Perry Work Phone: [facility] 01-15-2023 13:53-0400 Diastolic blood pressure 74 mm[Hg] Dr. Chema Perry Work Phone: [facility] 01-15-2023 13:53-0400 Heart rate 90 /min Dr. Chema Perry Work Phone: [facility] 01-15-2023 13:53-0400 Respiratory rate 17 /min Dr. Chema Perry Work Phone: [facility] 01-15-2023 13:53-0400 SaO2% (BldA) [Mass fraction] 97 % Dr. Chema Perry Work Phone: [facility] 01-15-2023 13:53-0400 Systolic blood pressure 130 mm[Hg] Dr. Chema Perry Work Phone: [facility] 01-08-2023 11:45-0400 Body mass index (BMI) [Ratio] 22.6 kg/m2 Dr. Chema Perry Work Phone: [facility] 01-08-2023 11:45-0400 Body weight 50.[address] Chema Perry Work Phone: [facility] 01-08-2023 11:45-0400 Diastolic blood pressure 71 mm[Hg] Dr. Chema Perry Work Phone: [facility] 01-08-2023 11:45-0400 Heart rate 72 /min Dr. Chema Perry Work Phone: [facility] 01-08-2023 11:45-0400 Respiratory rate 16 /min Dr. Chema Perry Work Phone: [facility] 01-08-2023 11:45-0400 Systolic blood pressure 110 mm[Hg] Dr. Chema Perry Work Phone: [facility] 01-02-2023 14:30-0400 Body mass index (BMI) [Ratio] 22.8 kg/m2 Dr. Chema Perry Work Phone: [facility] 01-02-2023 14:30-0400 Body temperature 97.8 [degF] Dr. Chema Perry Work Phone: [facility] 01-02-2023 14:30-0400 Body weight 51.[address] Chema Perry Work Phone: [facility] 01-02-2023 14:30-0400 Diastolic blood pressure 74 mm[Hg] Dr. Chema Perry Work Phone: [facility] 01-02-2023 14:30-0400 Heart rate 82 /min Dr. Chema Perry Work Phone: [facility] 01-02-2023 14:30-0400 Respiratory rate 16 /min Dr. Chema Perry Work Phone: [facility] 01-02-2023 14:30-0400 SaO2% (BldA) [Mass fraction] 94 % Dr. Chema Perry Work Phone: [facility] 01-02-2023 14:30-0400 Systolic blood pressure 128 mm[Hg] Dr. Chema Perry Work Phone: [facility] 01-01-2023 11:15-0400 Body mass index (BMI) [Ratio] 22.2 kg/m2 Dr. Chema Perry Work Phone: [facility] 01-01-2023 11:15-0400 Body temperature 97.6 [degF] Dr. Chema Perry Work Phone: [facility] 01-01-2023 11:15-0400 Body weight 49.[address] Chema Perry Work Phone: [facility] 01-01-2023 11:15-0400 Diastolic blood pressure 77 mm[Hg] Dr. Chema Perry Work Phone: [facility] 01-01-2023 11:15-0400 Heart rate 80 /min Dr. Chema Perry Work Phone: [facility] 01-01-2023 11:15-0400 Respiratory rate 18 /min Dr. Chema Perry Work Phone: [facility] 01-01-2023 11:15-0400 SaO2% (BldA) [Mass fraction] 93 % Dr. Chema Perry Work Phone: [facility] 01-01-2023 11:15-0400 Systolic blood pressure 124 mm[Hg] Dr. Chema Perry Work Phone: [facility] 12-25-2022 14:04-0400 Body temperature 98.3 [degF] Dr. Chema Perry Work Phone: [facility] 12-25-2022 14:04-0400 Diastolic blood pressure 72 mm[Hg] Dr. Chema Perry Work Phone: [facility] 12-25-2022 14:04-0400 Heart rate 74 /min Dr. Chema Perry Work Phone: [facility] 12-25-2022 14:04-0400 Respiratory rate 17 /min Dr. Chema Perry Work Phone: [facility] 12-25-2022 14:04-0400 SaO2% (BldA) [Mass fraction] 91 % Dr. Chema Perry Work Phone: [facility] 12-25-2022 14:04-0400 Systolic blood pressure 116 mm[Hg] Dr. Chema Perry Work Phone: [facility] 11-23-2022 11:14-0400 Body height 149.[address] Chema Perry Work Phone: [facility] 11-23-2022 11:14-0400 Body mass index (BMI) [Ratio] 23 kg/m2 Dr. Chema Perry Work Phone: [facility] 11-23-2022 11:14-0400 Body temperature 97.8 [degF] Dr. Chema Perry Work Phone: [facility] 11-23-2022 11:14-0400 Body weight 51.[address] Chema Perry Work Phone: [facility] 11-13-2022 12:59-0400 Body weight 49.9 kg Laisha Lizarraga APRN.[employer] Work Phone: [facility] 11-13-2022 12:59-0400 Diastolic blood pressure 69 mm[Hg] Laisha Lizarraga APRN.[employer] Work Phone: [facility] 11-13-2022 12:59-0400 Heart rate 77 /min Laisha Lizarraga APRN.[employer] Work Phone: [facility] 11-13-2022 12:59-0400 Systolic blood pressure 113 mm[Hg] Laisha Lizarraga APRN.[employer] Work Phone: [facility] 10-23-2022 13:11-0500 Body temperature 98.5 [degF] Dr. Chema Perry Work Phone: [facility] 10-23-2022 13:11-0500 Diastolic blood pressure 78 mm[Hg] Dr. Chema Perry Work Phone: [facility] 10-23-2022 13:11-0500 Heart rate 76 /min Dr. Chema Perry Work Phone: [facility] 10-23-2022 13:11-0500 Respiratory rate 14 /min Dr. Chema Perry Work Phone: [facility] 10-23-2022 13:11-0500 SaO2% (BldA) [Mass fraction] 98 % Dr. Chema Perry Work Phone: [facility] 10-23-2022 13:11-0500 Systolic blood pressure 122 mm[Hg] Dr. Chema Perry Work Phone: [facility] 10-21-2022 13:08-0500 Body temperature 98.2 [degF] Dr. Chema Perry Work Phone: [facility] 10-21-2022 13:08-0500 Body weight 54.[address] Chema Perry Work Phone: [facility] 10-21-2022 13:08-0500 Diastolic blood pressure 74 mm[Hg] Dr. Chema Perry Work Phone: [facility] 10-21-2022 13:08-0500 Heart rate 87 /min Dr. Chema Perry Work Phone: [facility] 10-21-2022 13:08-0500 Respiratory rate 16 /min Dr. Chema Perry Work Phone: [facility] 10-21-2022 13:08-0500 SaO2% (BldA) [Mass fraction] 93 % Dr. Chema Perry Work Phone: [facility] 10-21-2022 13:08-0500 Systolic blood pressure 128 mm[Hg] Dr. Chema Perry Work Phone: [facility] 10-16-2022 17:21-0500 Body height 149.[address] Chema Perry Work Phone: [facility] 10-16-2022 17:21-0500 Body mass index (BMI) [Ratio] 24.1 kg/m2 Dr. Chema Perry Work Phone: [facility] 10-16-2022 17:21-0500 Body temperature 98.2 [degF] Dr. Chema Perry Work Phone: [facility] 10-16-2022 17:21-0500 Body weight 54.[address] Chema Perry Work Phone: [facility] 10-16-2022 17:21-0500 Diastolic blood pressure 92 mm[Hg] Dr. Chema Perry Work Phone: [facility] 10-16-2022 17:21-0500 Heart rate 81 /min Dr. Chema Perry Work Phone: [facility] 10-16-2022 17:21-0500 Respiratory rate 14 /min Dr. Chema Perry Work Phone: [facility] 10-16-2022 17:21-0500 SaO2% (BldA) [Mass fraction] 94 % Dr. Chema Perry Work Phone: [facility] 10-16-2022 17:21-0500 Systolic blood pressure 160 mm[Hg] Dr. Chema Perry Work Phone: [facility] 09-21-2022 10:53-0500 Body temperature 98.2 [degF] Dr. Chema Perry Work Phone: [facility] 09-21-2022 10:53-0500 Diastolic blood pressure 60 mm[Hg] Dr. Chema Perry Work Phone: [facility] 09-21-2022 10:53-0500 Heart rate 83 /min Dr. Chema Perry Work Phone: [facility] 09-21-2022 10:53-0500 Respiratory rate 14 /min Dr. Chema Perry Work Phone: [facility] 09-21-2022 10:53-0500 SaO2% (BldA) [Mass fraction] 95 % Dr. Chema Perry Work Phone: [facility] 09-21-2022 10:53-0500 Systolic blood pressure 104 mm[Hg] Dr. Cehma Perry Work Phone: [facility] 07-24-2022 15:46-0500 Body temperature 96.8 [degF] Dr. Chema Perry Work Phone: [facility] 07-24-2022 15:46-0500 Body weight 56.[address] Chema Perry Work Phone: [facility] 07-24-2022 15:46-0500 Diastolic blood pressure 86 mm[Hg] Dr. Chema Perry Work Phone: [facility] 07-24-2022 15:46-0500 Heart rate 90 /min Dr. Chema Perry Work Phone: [facility] 07-24-2022 15:46-0500 Respiratory rate 16 /min Dr. Chema Perry Work Phone: [facility] 07-24-2022 15:46-0500 SaO2% (BldA) [Mass fraction] 91 % Dr. Chema Perry Work Phone: [facility] 07-24-2022 15:46-0500 Systolic blood pressure 134 mm[Hg] Dr. Chema Perry Work Phone: [facility] 07-22-2022 14:41-0500 Body height 149.[address] Arun Ramos Work Phone: [facility] 07-22-2022 14:41-0500 Body mass index (BMI) [Ratio] 25.2 kg/m2 Dr. Arun Ramos Work Phone: [facility] 07-22-2022 14:41-0500 Body temperature 98 [degF] Dr. Arun Ramos Work Phone: [facility] 07-22-2022 14:41-0500 Body weight 56.[address] Arun Ramos Work Phone: [facility] 07-22-2022 14:41-0500 Diastolic blood pressure 67 mm[Hg] Dr. Arun Ramos Work Phone: [facility] 07-22-2022 14:41-0500 Heart rate 90 /min Dr. Arun Ramos Work Phone: [facility] 07-22-2022 14:41-0500 Respiratory rate 18 /min Dr. Arun Ramos Work Phone: [facility] 07-22-2022 14:41-0500 SaO2% (BldA) [Mass fraction] 95 % Dr. Arun Ramos Work Phone: [facility] 07-22-2022 14:41-0500 Systolic blood pressure 109 mm[Hg] Dr. Arun Ramos Work Phone: [facility] 07-13-2022 03:28-0500 Diastolic blood pressure 68 mm[Hg] Dr. Arun Ramos Work Phone: [facility] 07-13-2022 03:28-0500 Heart rate 78 /min Dr. Arun Ramos Work Phone: [facility] 07-13-2022 03:28-0500 Respiratory rate 16 /min Dr. Arun Ramos Work Phone: [facility] 07-13-2022 03:28-0500 SaO2% (BldA) [Mass fraction] 97 % Dr. Arun Ramos Work Phone: [facility] 07-13-2022 03:28-0500 Systolic blood pressure 135 mm[Hg] Dr. Arun Ramos Work Phone: [facility] 07-13-2022 00:21-0500 Body height 149.[address] Arun Ramos Work Phone: [facility] Work Phone: 07-13-2022 00:21-0500 Body mass index (BMI) [Ratio] 25.7 kg/m2 Dr. Arun Ramos Work Phone: [facility] 07-13-2022 00:21-0500 Body temperature 97.8 [degF] Dr. Arun Ramos Work Phone: [facility] 07-13-2022 00:21-0500 Body weight 57.[address] Arun Ramos Work Phone: [facility] 07-07-2022 09:10-0500 Body mass index (BMI) [Ratio] 24.4 kg/m2 Dr. Arun Ramos Work Phone: [facility] 07-07-2022 09:10-0500 Body temperature 99.2 [degF] Dr. Arun Ramos Work Phone: [facility] 07-07-2022 09:10-0500 Body weight 54.[address] Arun Ramos Work Phone: [facility] 07-07-2022 09:10-0500 Diastolic blood pressure 70 mm[Hg] Dr. Arun Ramos Work Phone: [facility] 07-07-2022 09:10-0500 Heart rate 81 /min Dr. Arun Ramos Work Phone: [facility] 07-07-2022 09:10-0500 Respiratory rate 16 /min Dr. Arun Ramos Work Phone: [facility] 07-07-2022 09:10-0500 SaO2% (BldA) [Mass fraction] 96 % Dr. Arun Ramos Work Phone: [facility] 07-07-2022 09:10-0500 Systolic blood pressure 118 mm[Hg] Dr. Arun Ramos Work Phone: [facility] 07-04-2022 13:35-0500 Body temperature 97.9 [degF] Dr. Arun Ramos Work Phone: [facility] 07-04-2022 13:35-0500 Body weight 56.[address] Arun Ramos Work Phone: [facility] 07-04-2022 13:35-0500 Diastolic blood pressure 81 mm[Hg] Dr. Arun Ramos Work Phone: [facility] 07-04-2022 13:35-0500 Heart rate 87 /min Dr. Arun Ramos Work Phone: [facility] 07-04-2022 13:35-0500 Respiratory rate 18 /min Dr. Arun Ramos Work Phone: [facility] 07-04-2022 13:35-0500 SaO2% (BldA) [Mass fraction] 90 % Dr. Arun Ramos Work Phone: 6(951)021-705524 [place] [address] 07-04-2022 13:35-0500 Systolic blood pressure 132 mm[Hg] Dr. Arun Ramos Work Phone: 6(934)797-240016 [address] 06-25-2022 13:14-0500 Body mass index (BMI) [Ratio] 25.2 kg/m2 Dr. Arun Ramos Work Phone: 8(822)917-266924 [place] [address] 06-25-2022 13:14-0500 Body temperature 97.1 [degF] Dr. Arun Ramos Work Phone: 2(582)074-493450 [place] [address] 06-25-2022 13:14-0500 Body weight 56.[address] Arun Ramos Work Phone: 4(093)001-214550 [place] [address] 06-25-2022 13:14-0500 Diastolic blood pressure 70 mm[Hg] Dr. Arun Ramos Work Phone: 0(748)704-519050 [place] [address] 06-25-2022 13:14-0500 Heart rate 78 /min Dr. Arun Ramos Work Phone: 8(595)839-089650 [place] [address] 06-25-2022 13:14-0500 Respiratory rate 18 /min Dr. Arun Ramos Work Phone: 2(088)452-854850 [place] [address] 06-25-2022 13:14-0500 SaO2% (BldA) [Mass fraction] 94 % Dr. Arun Ramos Work Phone: 2(714)193-247616 [address] 06-25-2022 13:14-0500 Systolic blood pressure 122 mm[Hg] Dr. Arun Ramos Work Phone: 1(279)986-297024 [place] [address] 06-07-2022 13:04-0400 Body mass index (BMI) [Ratio] 24.7 kg/m2 Dr. Arun Ramos Work Phone: 7(690)527-965424 [place] [address] 06-07-2022 13:04-0400 Body weight 55.[address] Arun Ramos Work Phone: 4(555)661-059450 [place] [address] 06-07-2022 13:04-0400 Diastolic blood pressure 70 mm[Hg] Dr. Arun Ramos Work Phone: [facility] 06-07-2022 13:04-0400 Heart rate 80 /min Dr. Arun Ramos Work Phone: [facility] 06-07-2022 13:04-0400 Respiratory rate 18 /min Dr. Arun Ramos Work Phone: [facility] 06-07-2022 13:04-0400 Systolic blood pressure 122 mm[Hg] Dr. Arun Ramos Work Phone: [facility] 05-13-2022 14:11-0400 Body temperature 98 [degF] Dr. Arun Ramos Work Phone: [facility] Work Phone: 05-13-2022 14:11-0400 Body weight 55.[address] Arun Ramos Work Phone: [facility] Work Phone: 05-13-2022 14:11-0400 Diastolic blood pressure 89 mm[Hg] Dr. Arun Ramos Work Phone: [facility] Work Phone: 05-13-2022 14:11-0400 Heart rate 87 /min Dr. Arun Ramos Work Phone: [facility] Work Phone: 05-13-2022 14:11-0400 Respiratory rate 16 /min Dr. Arun Ramos Work Phone: [facility] Work Phone: 05-13-2022 14:11-0400 SaO2% (BldA) [Mass fraction] 95 % Dr. Arun Ramos Work Phone: [facility] Work Phone: 05-13-2022 14:11-0400 Systolic blood pressure 149 mm[Hg] Dr. Arun Ramos Work Phone: [facility] Work Phone: 04-25-2022 11:37-0400 Body temperature 97 [degF] Dr. Arun Ramos Work Phone: [facility] Work Phone: 04-25-2022 11:37-0400 Body weight 56.[address] Arun Ramos Work Phone: [facility] Work Phone: 04-25-2022 11:37-0400 Diastolic blood pressure 77 mm[Hg] Dr. Arun Ramos Work Phone: [facility] Work Phone: 04-25-2022 11:37-0400 Heart rate 76 /min Dr. Arun Ramos Work Phone: [facility] Work Phone: 04-25-2022 11:37-0400 Respiratory rate 18 /min Dr. Arun Ramos Work Phone: [facility] Work Phone: 04-25-2022 11:37-0400 SaO2% (BldA) [Mass fraction] 90 % Dr. Arun Ramos Work Phone: [facility] Work Phone: 04-25-2022 11:37-0400 Systolic blood pressure 131 mm[Hg] Dr. Arun Ramos Work Phone: [facility] Work Phone: 04-11-2022 12:48-0400 Body weight 53.07 kg Laisha Lizarraga APRN.[employer] Work Phone: [facility] 04-11-2022 12:48-0400 Diastolic blood pressure 77 mm[Hg] Laisha Lizarraga APRN.[employer] Work Phone: [facility] 04-11-2022 12:48-0400 Heart rate 75 /min Laisha Lizarraga APRN.[employer] Work Phone: [facility] 04-11-2022 12:48-0400 Systolic blood pressure 117 mm[Hg] Laisha Lizarraga APRN.CNP Work Phone: [facility] 03-27-2022 05:59-0400 Body mass index (BMI) [Ratio] 25.1 kg/m2 Dr. Arun Ramos Work Phone: [facility] Work Phone: 03-27-2022 05:59-0400 Body temperature 98.6 [degF] Dr. Arun Ramos Work Phone: [facility] Work Phone: 03-27-2022 05:59-0400 Body weight 56.[address] Arun Ramos Work Phone: [facility] Work Phone: 03-27-2022 05:59-0400 Diastolic blood pressure 68 mm[Hg] Dr. Arun Ramos Work Phone: [facility] Work Phone: 03-27-2022 05:59-0400 Heart rate 90 /min Dr. Arun Ramos Work Phone: [facility] Work Phone: 03-27-2022 05:59-0400 Respiratory rate 16 /min Dr. Arun Ramos Work Phone: [facility] Work Phone: 03-27-2022 05:59-0400 SaO2% (BldA) [Mass fraction] 92 % Dr. Arun Ramos Work Phone: [facility] Work Phone: 03-27-2022 05:59-0400 Systolic blood pressure 111 mm[Hg] Dr. Arun Ramos Work Phone: [facility] Work Phone: 03-21-2022 14:11-0400 Body mass index (BMI) [Ratio] 24.9 kg/m2 Dr. Arun Ramos Work Phone: [facility] Work Phone: 03-21-2022 14:11-0400 Body temperature 97.6 [degF] Dr. Arun Ramos Work Phone: [facility] Work Phone: 03-21-2022 14:11-0400 Body weight 56.[address] Arun Ramos Work Phone: [facility] Work Phone: 03-21-2022 14:11-0400 Diastolic blood pressure 82 mm[Hg] Dr. Arun Ramos Work Phone: [facility] Work Phone: 03-21-2022 14:11-0400 Heart rate 80 /min Dr. Arun Ramos Work Phone: [facility] Work Phone: 03-21-2022 14:11-0400 Respiratory rate 16 /min Dr. Arun Ramos Work Phone: [facility] Work Phone: 03-21-2022 14:11-0400 SaO2% (BldA) [Mass fraction] 98 % Dr. Arun Ramos Work Phone: [facility] Work Phone: 03-21-2022 14:11-0400 Systolic blood pressure 142 mm[Hg] Dr. Arun Ramos Work Phone: [facility] Work Phone: 03-15-2022 19:42-0400 Body height 149.[address] Arun Ramos Work Phone: [facility] Work Phone: 03-15-2022 19:42-0400 Body mass index (BMI) [Ratio] 26.4 kg/m2 Dr. Arun Ramos Work Phone: [facility] Work Phone: 03-15-2022 19:42-0400 Body temperature 98 [degF] Dr. Arun Ramos Work Phone: [facility] Work Phone: 03-15-2022 19:42-0400 Body weight 59.[address] Arun Ramos Work Phone: [facility] Work Phone: 03-15-2022 19:42-0400 Diastolic blood pressure 83 mm[Hg] Dr. Arun Ramos Work Phone: [facility] Work Phone: 03-15-2022 19:42-0400 Heart rate 84 /min Dr. Arun Ramos Work Phone: [facility] Work Phone: 03-15-2022 19:42-0400 Respiratory rate 18 /min Dr. Arun Ramos Work Phone: [facility] Work Phone: 03-15-2022 19:42-0400 SaO2% (BldA) [Mass fraction] 93 % Dr. Arun Ramos Work Phone: [facility] Work Phone: 03-15-2022 19:42-0400 Systolic blood pressure 144 mm[Hg] Dr. Arun Ramos Work Phone: [facility] Work Phone: 02-15-2022 17:00-0400 Respiratory rate 14 /min Dr. Arun Ramos Work Phone: [facility] Work Phone: 02-15-2022 17:00-0400 SaO2% (BldA) [Mass fraction] 99 % Dr. Arun Ramos Work Phone: [facility] Work Phone: 02-15-2022 15:00-0400 Diastolic blood pressure 81 mm[Hg] Dr. Arun Ramos Work Phone: [facility] Work Phone: 02-15-2022 15:00-0400 Heart rate 67 /min Dr. Arun Ramos Work Phone: [facility] Work Phone: 02-15-2022 15:00-0400 Systolic blood pressure 122 mm[Hg] Dr. Arun Ramos Work Phone: [facility] Work Phone: 02-15-2022 09:48-0400 Body height 149.[address] Arun Ramos Work Phone: [facility] Work Phone: 02-15-2022 09:48-0400 Body mass index (BMI) [Ratio] 24.9 kg/m2 Dr. Arun Ramos Work Phone: [facility] Work Phone: 02-15-2022 09:48-0400 Body temperature 98.3 [degF] Dr. Arun Ramos Work Phone: [facility] Work Phone: 02-15-2022 09:48-0400 Body weight [address] Arun Ramos Work Phone: [facility] Work Phone: 01-23-2022 10:42-0400 Body weight 53.98 kg Mitchel Muse MD Work Phone: [facility] 01-23-2022 10:42-0400 Diastolic blood pressure 72 mm[Hg] Mitchel Muse MD Work Phone: [facility] 01-23-2022 10:42-0400 Heart rate 82 /min Mitchel Muse MD Work Phone: [facility] 01-23-2022 10:42-0400 Systolic blood pressure 114 mm[Hg] Mitchel Muse MD Work Phone: [facility] 01-10-2022 13:19-0400 Body height 152.[address] Arun Ramos Work Phone: [facility] Work Phone: 01-10-2022 13:19-0400 Body mass index (BMI) [Ratio] 23.4 kg/m2 Dr. Arun Ramos Work Phone: [facility] Work Phone: 01-10-2022 13:19-0400 Body temperature 97.4 [degF] Dr. Arun Ramos Work Phone: [facility] Work Phone: 01-10-2022 13:19-0400 Body weight 54.[address] Arun Ramos Work Phone: [facility] Work Phone: 01-10-2022 13:19-0400 Diastolic blood pressure 76 mm[Hg] Dr. Arun Ramos Work Phone: [facility] Work Phone: 01-10-2022 13:19-0400 Heart rate 84 /min Dr. Arun Ramos Work Phone: [facility] Work Phone: 01-10-2022 13:19-0400 Respiratory rate 16 /min Dr. Arun Ramos Work Phone: [facility] Work Phone: 01-10-2022 13:19-0400 SaO2% (BldA) [Mass fraction] 92 % Dr. Arun Ramos Work Phone: [facility] Work Phone: 01-10-2022 13:19-0400 Systolic blood pressure 115 mm[Hg] Dr. Arun Ramos Work Phone: [facility] Work Phone: 11-13-2021 11:13-0400 Body weight 56.25 kg Laisha Lizarraga APRN.[employer] Work Phone: [facility] 11-13-2021 11:13-0400 Diastolic blood pressure 68 mm[Hg] Laisha Lizarraga APRN.[employer] Work Phone: [facility] 11-13-2021 11:13-0400 Heart rate 83 /min Laisha Lizarraga APRN.CNP Work Phone: [facility] 11-13-2021 11:13-0400 Systolic blood pressure 125 mm[Hg] Laisha Zia ROSASRECEPTION CENTRE MANAGER Work Phone: [facility] 11-07-2021 14:12-0400 Body height 149.[address] Arun Ramos Work Phone: [facility] Work Phone: 11-07-2021 14:12-0400 Body mass index (BMI) [Ratio] 23.2 kg/m2 Dr. Arun Ramos Work Phone: [facility] Work Phone: 11-07-2021 14:12-0400 Body temperature 97.2 [degF] Dr. Arun Ramos Work Phone: [facility] Work Phone: 11-07-2021 14:12-0400 Body weight 52.[address] Arun Ramos Work Phone: [facility] Work Phone: 11-07-2021 14:12-0400 Diastolic blood pressure 81 mm[Hg] Dr. Arun Ramos Work Phone: [facility] Work Phone: 11-07-2021 14:12-0400 Heart rate 100 /min Dr. Arun Ramos Work Phone: [facility] Work Phone: 11-07-2021 14:12-0400 Respiratory rate 19 /min Dr. Arun Ramos Work Phone: [facility] Work Phone: 11-07-2021 14:12-0400 SaO2% (BldA) [Mass fraction] 91 % Dr. Arun Ramos Work Phone: [facility] Work Phone: 11-07-2021 14:12-0400 Systolic blood pressure 110 mm[Hg] Dr. Arun Ramos Work Phone: [facility] Work Phone: 10-08-2021 19:03-0500 Body temperature 97.7 [degF] Dr. Arun Ramos Work Phone: [facility] Work Phone: 10-08-2021 19:03-0500 Diastolic blood pressure 88 mm[Hg] Dr. Arun Ramos Work Phone: [facility] Work Phone: 10-08-2021 19:03-0500 Heart rate 81 /min Dr. Arun Ramos Work Phone: [facility] Work Phone: 10-08-2021 19:03-0500 Respiratory rate 20 /min Dr. Arun Ramos Work Phone: [facility] Work Phone: 10-08-2021 19:03-0500 SaO2% (BldA) [Mass fraction] 92 % Dr. Arun Ramos Work Phone: [facility] Work Phone: 10-08-2021 19:03-0500 Systolic blood pressure 134 mm[Hg] Dr. Arun Ramos Work Phone: [facility] Work Phone: 10-06-2021 15:46-0500 Body weight 55.[address] Arun Ramos Work Phone: [facility] Work Phone: 10-05-2021 17:32-0500 Body mass index (BMI) [Ratio] 24.8 kg/m2 Dr. Arun Ramos Work Phone: [facility] Work Phone: 10-04-2021 10:45-0500 Body temperature 97.3 [degF] Dr. Arun Ramos Work Phone: [facility] Work Phone: 10-04-2021 10:45-0500 Diastolic blood pressure 80 mm[Hg] Dr. Arun Ramos Work Phone: [facility] Work Phone: 10-04-2021 10:45-0500 Heart rate 90 /min Dr. Arun Ramos Work Phone: [facility] Work Phone: 10-04-2021 10:45-0500 Respiratory rate 20 /min Dr. Arun Ramos Work Phone: [facility] Work Phone: 10-04-2021 10:45-0500 SaO2% (BldA) [Mass fraction] 92 % Dr. Arun Ramos Work Phone: [facility] Work Phone: 10-04-2021 10:45-0500 Systolic blood pressure 134 mm[Hg] Dr. Arun Ramos Work Phone: [facility] Work Phone: 10-02-2021 09:01-0500 Body weight 57.[address] Arun Ramos Work Phone: [facility] Work Phone: 09-27-2021 19:53-0500 Inhaled oxygen concentration 21 % Dr. Arun Ramos Work Phone: [facility] Work Phone: 09-04-2021 12:15-0500 Body mass index (BMI) [Ratio] 27 kg/m2 Dr. Arun Ramos Work Phone: [facility] Work Phone: 09-04-2021 07:30-0500 Body temperature 97.8 [degF] Dr. Arun Ramos Work Phone: [facility] Work Phone: 09-04-2021 07:30-0500 Diastolic blood pressure 85 mm[Hg] Dr. Arun Ramos Work Phone: [facility] Work Phone: 09-04-2021 07:30-0500 Heart rate 79 /min Dr. Arun Ramos Work Phone: [facility] Work Phone: 09-04-2021 07:30-0500 Respiratory rate 18 /min Dr. Arun Ramos Work Phone: [facility] Work Phone: 09-04-2021 07:30-0500 SaO2% (BldA) [Mass fraction] 94 % Dr. Arun Ramos Work Phone: [facility] Work Phone: 09-04-2021 07:30-0500 Systolic blood pressure 154 mm[Hg] Dr. Arun Ramos Work Phone: [facility] Work Phone: 09-02-2021 18:34-0500 Body mass index (BMI) [Ratio] 27.3 kg/m2 Dr. Arun Ramos Work Phone: [facility] Work Phone: 09-02-2021 18:34-0500 Body weight 61.[address] Arun Ramos Work Phone: [facility] Work Phone: 09-01-2021 17:54-0500 Diastolic blood pressure 85 mm[Hg] Dr. Arun Ramos Work Phone: [facility] Work Phone: 09-01-2021 17:54-0500 Heart rate 74 /min Dr. Arun Ramos Work Phone: [facility] Work Phone: 09-01-2021 17:54-0500 Respiratory rate 19 /min Dr. Arun Ramos Work Phone: [facility] Work Phone: 09-01-2021 17:54-0500 SaO2% (BldA) [Mass fraction] 92 % Dr. Arun Ramos Work Phone: [facility] Work Phone: 09-01-2021 17:54-0500 Systolic blood pressure 156 mm[Hg] Dr. Arun Ramos Work Phone: [facility] Work Phone: 09-01-2021 16:32-0500 Body mass index (BMI) [Ratio] 24 kg/m2 Dr. Arun Ramos Work Phone: [facility] Work Phone: 09-01-2021 16:32-0500 Body temperature 98.5 [degF] Dr. Arun Ramos Work Phone: [facility] Work Phone: 09-01-2021 16:32-0500 Body weight 63.[address] Arun Ramos Work Phone: [facility] Work Phone: 08-09-2021 11:59-0500 Body mass index (BMI) [Ratio] 28.3 kg/m2 Dr. Arun Ramos Work Phone: [facility] Work Phone: 08-09-2021 11:59-0500 Body temperature 97.5 [degF] Dr. Arun Ramos Work Phone: [facility] Work Phone: 08-09-2021 11:59-0500 Body weight 63.[address] Arun Ramos Work Phone: [facility] Work Phone: 08-09-2021 11:59-0500 Diastolic blood pressure 86 mm[Hg] Dr. Arun Ramos Work Phone: [facility] Work Phone: 08-09-2021 11:59-0500 Heart rate 80 /min Dr. Arun Ramos Work Phone: [facility] Work Phone: 08-09-2021 11:59-0500 Respiratory rate 16 /min Dr. Arun Ramos Work Phone: [facility] Work Phone: 08-09-2021 11:59-0500 SaO2% (BldA) [Mass fraction] 98 % Dr. Arun Ramos Work Phone: [facility] Work Phone: 08-09-2021 11:59-0500 Systolic blood pressure 136 mm[Hg] Dr. Arun Ramos Work Phone: [facility] Work Phone: Encounters Encounter Date Encounter Type Care Provider Facility Start: 01-27-2025 ambulatory SOURAV MARCIAL Facility:[facility] Start: 01-05-2025 End: 01-05-2025 ambulatory ESTELLE HODGES Facility:[facility] Start: 12-24-2024 End: 12-24-2024 ambulatory Sourav Marcial MD Work Phone: Cardiology Comment on above: Problems Tolerating Torsemide Start: 12-23-2024 End: 12-23-2024 Office outpatient visit 40 minutes Laisha Lizarraga APRN.CNP Work Phone: Neurology Comment on above: 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, psychotic disturbance, mood disturbance, or anxiety (HCC) (Primary Dx); Physical deconditioning; Gait instability; Fine motor impairment; Dizziness; Cognitive communication deficit; Idiopathic peripheral neuropathy; Restless legs syndrome Start: 12-23-2024 End: 12-23-2024 ambulatory LAISHA LIZARRAGA Facility:[facility] Start: 12-20-2024 End: 12-20-2024 Patient encounter procedure Sourav Marcial MD Work Phone: Cardiology Comment on above: Coronary stent patent (Primary Dx); Mixed hyperlipidemia; Essential hypertension; Pulmonary HTN (HCC); Nonrheumatic tricuspid valve regurgitation; Carotid bruit, unspecified laterality; Obstructive sleep apnea syndrome; Acquired hypothyroidism; Bilateral leg edema; History of pulmonary embolism; History of DVT (deep vein thrombosis); History of transient ischemic attack (TIA); Abnormality of gait Start: 12-20-2024 End: 12-20-2024 ambulatory SOURAV MARCIAL Facility:[facility] Start: 12-19-2024 End: 12-19-2024 Patient encounter procedure Young VALENCIA Work Phone: [facility] Comment on above: Skin tear of right forearm without compl ication, initial encounter (Primary Dx) Start: 12-19-2024 End: 12-19-2024 ambulatory YOUNG LORD Facility:[facility] Start: 12-16-2024 End: 12-16-2024 Refill Sourav Marcial MD Work Phone: Cardiology Comment on above: Refill Request Start: 12-09-2024 End: 12-09-2024 ambulatory LUH DEAN Facility:[facility] Start: 12-03-2024 End: 12-03-2024 ambulatory ANILA DE PAZ Facility:[facility] Start: 12-03-2024 End: 12-03-2024 Patient encounter procedure Anila De Paz MD Work Phone: General Surgery Comment on above: Hiatal hernia (Primary Dx) Start: 11-26-2024 End: 11-26-2024 Patient encounter procedure Radha Hesson OTR/L Work Phone: [facility] Comment on above: Fine motor impairment (Primary Dx); Weakness; Lack of coordination; Decreased activities of daily living (ADL) Start: 11-26-2024 End: 11-26-2024 ambulatory Radha Hesson OTR/L Work Phone: [facility] Start: 11-19-2024 End: 11-19-2024 Patient encounter procedure Radha Hesson OTR/L Work Phone: [facility] Comment on above: Fine motor impairment (Primary Dx); Weakness; Lack of coordination Start: 11-19-2024 End: 11-19-2024 ambulatory Radha Hesson OTR/L Work Phone: [facility] Start: 11-17-2024 End: 11-17-2024 Orders Only Raquel Null MD Work Phone: General Surgery Comment on above: Dilation of biliary tract (Primary Dx) Start: 11-15-2024 End: 11-17-2024 Evaluation and management of inpatient [facility] Facility:[facility] Start: 11-15-2024 End: 11-15-2024 Telephone encounter Taylor Forrest RN General Surgery Comment on above: Generalized abdominal pain (Primary Dx); Diarrhea, unspecified type Start: 11-12-2024 End: 11-12-2024 Patient encounter procedure Radha Edisjohn OTR/L Work Phone: [facility] Comment on above: Fine motor impairment (Primary Dx); Decreased activities of daily living (ADL); Lack of coordination; Weakness Start: 11-12-2024 End: 11-12-2024 ambulatory Radha Edisjohn OTR/L Work Phone: [facility] Start: 11-12-2024 End: 11-12-2024 Telephone encounter Pippa Fox RN General Surgery Start: 11-11-2024 End: 11-11-2024 ambulatory [facility] Facility:[facility] Start: 11-11-2024 End: 11-11-2024 [facility] Comment on above: Nausea [R11.0] Start: 11-09-2024 End: 11-09-[address] Susan Emery DO Work Phone: [facility] Work Phone: Start: 11-09-2024 End: 11-09-[address] Chema Perry MD -Radiology, [facility] Work Phone: Start: 11-08-2024 End: 11-09-2024 [facility] Facility:[facility] Start: 11-08-2024 End: 11-08-2024 E-mail encounter from caregiver Taylor Forrest RN General Surgery Start: 11-08-2024 End: 11-08-2024 Follow-up encounter Taylor Forrest RN General Surgery Comment on above: Follow-up on Questions Start: 11-05-2024 End: 11-05-2024 Patient encounter procedure Radha Street OTR/L Work Phone: [facility] Comment on above: Fine motor impairment (Primary Dx); Decreased activities of daily living (ADL); Lack of coordination; Weakness Start: 11-05-2024 End: 11-05-[address] OTR/L Work Phone: [facility] Start: 11-03-2024 End: 11-03-2024 Patient encounter procedure Deniceclair Houstonteri PA-C Work Phone: Neurology Comment on above: Degeneration of intervertebral disc of l umbar region, unspecified whether pain present (Primary Dx); Left leg paresthesias; Right leg paresthesias; Ulnar neuropathy of right upper extremity Start: 11-03-2024 End: 11-03-2024 ambulatory DENICE JACOBS Facility:[facility] Start: 11-02-2024 End: 11-02-2024 Admission to same day surgery center Anila De Paz MD Work Phone: General Surgery Start: 11-02-2024 End: 11-02-2024 E-mail encounter from caregiver Anila De Paz MD Work Phone: General Surgery Start: 11-01-2024 End: 11-01-2024 ambulatory HUMZA CAMEJO Facility:[facility] Start: 11-01-2024 End: 11-01-2024 Patient encounter procedure Humza Camejo MD Work Phone: Ophthalmology Comment on above: Primary open angle glaucoma (POAG) of elisa th eyes, severe stage Start: 11-01-2024 End: 11-01-2024 Admission to same day surgery center Taylor Forrest RN General Surgery Comment on above: New Prescription Start: 11-01-2024 End: 11-01-2024 E-mail encounter from caregiver Taylor Forrest RN General Surgery Start: 10-29-2024 End: 10-29-2024 Telephone encounter Anila De Paz MD Work Phone: General Surgery Start: 10-29-2024 End: 10-29-2024 Patient encounter procedure Anila De Paz MD Work Phone: General Surgery Comment on above: S/P repair of paraesophageal hernia (Lauren tania Dx) Start: 10-29-2024 End: 10-29-2024 ambulatory ANILA DE PAZ Facility:[facility] Start: 10-29-2024 End: 10-29-2024 Patient encounter [address] Radha Street OTR/L Work Phone: [facility] Comment on above: Decreased activities of daily living (AD L) (Primary Dx); Fine motor impairment; Lack of coordination; Weakness Start: 10-29-2024 End: 10-29-[address] OTR/L Work Phone: [facility] Start: 10-22-2024 End: 10-22-2024 Patient encounter procedure Sandra GAYTANC -[facility] Work Phone: Start: 10-22-2024 End: 10-22-2024 ambulatory Chema Perry Facility:[facility] Start: 10-18-2024 End: 10-18-[address] Chema Perry MD Work Phone: [facility] Work Phone: Start: 10-18-2024 End: 10-18-[address] Chema Perry MD -Outpatient Breast Imaging Work Phone: Start: 10-17-2024 End: 10-18-2024 ambulatory Laisha Lizarraga APRN.[employer] Work Phone: Neurology Comment on above: Primary Care Phyiscian (PCP) Start: 10-14-2024 End: 10-14-[address] 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, psychotic disturbance, mood disturbance, or anxiety (HCC) (Primary Dx); Physical deconditioning; Gait instability; Fine motor impairment; Dizziness; Idiopathic scoliosis and kyphoscoliosis; Depression, unspecified depression type; Postural kyphosis of thoracic region; Restless legs syndrome; Other chronic pain; Paresthesia of both feet Start: 10-12-2024 End: 10-12-2024 Orders Only Oneil Piña MD Work Phone: General Surgery Comment on above: Pain of upper abdomen (Primary Dx) Start: 10-11-2024 End: 10-12-2024 Orders Only Oneil Piña MD Work Phone: General Surgery Comment on above: Medications Start: 10-08-2024 End: 10-08-2024 Patient encounter procedure Anila De Paz MD Work Phone: General Surgery Comment on above: Other chronic pain (Primary Dx) Start: 10-08-2024 End: 10-08-2024 ambulatory ANILA DE PAZ Facility:[facility] Start: 09-20-2024 End: 09-23-2024 Evaluation and management of inpatient ANILA DE PAZ Facility:[facility] Start: 09-18-2024 End: 09-18-2024 Emergency department patient visit Dr. Susan Emery DO -Emergency Department Work Phone: Start: 09-14-2024 End: 09-14-2024 ambulatory CHEMA PERRY Facility:[facility] Start: 09-14-2024 Encounter for other preprocedural examination ANILA DE PAZ [facility] Start: 09-14-2024 End: 09-14-2024 Office consultation new/estab patient 80 min Pacc [place] 1 Work Phone: Pre Anesthesia Comment on above: Preoperative examination (Primary Dx); Coronary artery disease due to lipid rich plaque; Other chronic pain; Hypoglycemia; History of complex partial epilepsy; Restless legs syndrome; History of DVT (deep vein thrombosis); Bronchiectasis without complication (HCC); Overactive bladder; Acquired hypothyroidism; Hiatal hernia; Essential hypertension; Mixed hyperlipidemia; Obstructive sleep apnea syndrome; Gastroesophageal reflux disease, unspecified whether esophagitis present; Hypokalemia due to excessive renal loss of potassium; Iron deficiency anemia, unspecified iron deficiency anemia type; History of malignant neoplasm of breast; 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); History of pulmonary embolism; Pulmonary HTN (HCC); Tricuspid valve insufficiency, unspecified etiology; Kyphosis, unspecified kyphosis type, unspecified spinal region; History of transient ischemic attack (TIA); Depression, unspecified depression type Start: 09-14-2024 End: 09-14-2024 Preprocedural examination done [facility] Rafita 1 Work Phone: [facility] Work Phone: Start: 09-14-2024 End: 09-14-2024 ambulatory [facility] Facility:[facility] Start: 09-14-2024 Encounter for other preprocedural examination [facility] Start: 09-13-2024 End: 09-13-2024 Orders Only Alisa Haile MD Work Phone: Gastroenterology Comment on above: Choledocholithiasis (Primary Dx) 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] Start: 09-10-2024 End: 09-10-2024 ambulatory DENICE HOUSTON Neurology Comment on above: EMG Start: 09-10-2024 End: 09-10-2024 Patient encounter procedure Emg 2 Neur [facility] (Max Weight: 850) Neurology Start: 09-09-2024 End: 09-09-2024 Telephone encounter Jacqueline Noland LPN General Surgery Start: 09-08-2024 End: 09-08-2024 Orders Only Susan Srinivasan MD Work Phone: General Surgery Comment on above: Dilated pancreatic duct (Primary Dx) UPDATED Pre-op Instr uctions Patient Update Physical Geographer - O ther (Update on EUS orders ) Start: 09-07-2024 End: 09-07-2024 ambulatory ANILA DE PAZ Facility:[facility] Start: 09-07-2024 End: 09-07-2024 Subsequent hospital visit by physician [facility] (I-Stat/1.5t) Work Phone: Radiology Comment on above: Abnormal results of liver function studi es [R94.5] Start: 09-06-2024 End: 09-09-2024 Admission to same day surgery center Joan Streeter RN Work Phone: Pre Anesthesia Comment on above: Preparations For Surgery (PACC) Start: 09-06-2024 End: 09-09-2024 ambulatory Joan Streeter RN Work Phone: Pre Anesthesia Start: 09-06-2024 End: 09-07-2024 Telephone encounter Joan Streeter RN Work Phone: Pre Anesthesia Comment on above: Preparations For Surgery (Pre-op Aspirin instructions) Start: 09-03-2024 End: 09-03-2024 Admission to same day surgery center Anila De Paz MD Work Phone: General Surgery Comment on above: 09/20/24 Pre-Op Teaching Pre-Operative Instru ctions Start: 09-03-2024 End: 09-03-2024 ambulatory Anila De Paz MD Work Phone: General Surgery Start: 09-03-2024 End: 09-03-2024 E-mail encounter from caregiver Taylor Forrest RN General Surgery Start: 09-03-2024 End: 09-03-2024 Patient encounter procedure Anila De Paz MD Work Phone: General Surgery Comment on above: Abnormal results of liver function studi es (Primary Dx) Start: 09-03-2024 End: 09-03-2024 Preprocedural examination done Anila De Paz MD Work Phone: [facility] Start: 08-25-2024 End: 08-25-2024 ambulatory QARAB DUNG Facility:[facility] Start: 08-25-2024 End: 08-25-2024 Admission to same day surgery center Taylor Forrest RN General Surgery Comment on above: Contact Information Start: 08-25-2024 End: 08-25-2024 E-mail encounter from caregiver Taylor Forrest RN General Surgery Start: 08-25-2024 End: 08-25-2024 Telephone encounter Taylor Forrest RN General Surgery Comment on above: Patient Question (Next Steps ) Start: 08-09-2024 End: 08-09-2024 ambulatory DENICE JACOBS Facility:[facility] Start: 08-06-2024 End: 08-06-2024 ambulatory DENICE GREENHURSTTERI Facility:[facility] Start: 08-06-2024 End: 08-06-2024 Patient encounter procedure Denice Jacobs JOSE Work Phone: Neurology Comment on above: Neuropathy (Primary Dx); Paresthesia of both feet; Frequent falls Start: 08-03-2024 End: 08-03-2024 ambulatory [facility] Facility:[facility] Start: 08-03-2024 Encounter for other preprocedural examination SOURAV MARCIAL [facility] Start: 08-03-2024 End: 08-03-2024 Patient encounter procedure Sourav Marcial MD Work Phone: Cardiology Comment on above: Pre-op evaluation (Primary Dx); H/O acute myocardial infarction; Pulmonary embolism without acute cor pulmonale, unspecified chronicity, unspecified pulmonary embolism type (HCC); Carotid bruit, unspecified laterality; Essential hypertension; Mixed hyperlipidemia; Obstructive sleep apnea syndrome; Hypothyroidism, unspecified type; History of DVT (deep vein thrombosis); Coronary stent patent; Coronary artery disease due to lipid rich plaque; Cardiomyopathy, unspecified type (HCC) Start: 08-03-2024 End: 08-03-2024 Preprocedural examination done Sourav Marcial MD Work Phone: [facility] Start: 08-02-2024 End: 08-02-2024 ambulatory HUMZA CAMEJO Facility:[facility] Start: 08-02-2024 End: 08-02-2024 Patient encounter procedure Humza Camejo MD Work Phone: Ophthalmology Comment on above: Primary open angle glaucoma (POAG) of elisa th eyes, severe stage Start: 07-21-2024 End: 07-21-2024 ambulatory CHRISTOPHER FULTON Facility:[facility] Start: 07-21-2024 End: 07-21-2024 Subsequent hospital visit by physician Eliazar Brown MD Work Phone: Gastroenterology Comment on above: Hiatal hernia [K44.9] Start: 07-19-2024 End: 07-19-[address] Christopher Truk -[facility] Work Phone: Start: 07-19-2024 End: 07-19-2024 ambulatory Christopher Turk Facility:[facility] Start: 07-19-2024 End: 07-19-2024 Telephone encounter Willa Torres APRN.CNP Work Phone: Pre Anesthesia Comment on above: Request Outside Medical Records Start: 07-16-2024 End: 07-16-2024 Preprocedural examination done Pacc Rafita 1 Work Phone: [facility] Start: 07-16-2024 End: 07-16-2024 PAT Pacc [place] 1 Work Phone: Pre Anesthesia Comment on above: Pre-operative examination (Primary Dx); 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); MS (multiple sclerosis) (HCC); History of complex partial epilepsy; Restless legs syndrome; Atherosclerosis of [place] coronary artery of [place] heart with angina pectoris (HCC); Essential hypertension; Mixed hyperlipidemia; Parkinsonism, unspecified Parkinsonism type (HCC); Seizure disorder (HCC); History of DVT (deep vein thrombosis); Obstructive sleep apnea syndrome; Bronchiectasis without complication (HCC); Gastroesophageal reflux disease, unspecified whether esophagitis present; Esophageal stricture; Hypokalemia due to excessive renal loss of potassium; Overactive bladder; Hypothyroidism, unspecified type; History of malignant neoplasm of breast; Bilateral leg edema; Osteoporosis, unspecified osteoporosis type, unspecified pathological fracture presence; Multiple falls; Pulmonary embolism, other, unspecified chronicity, unspecified whether acute cor pulmonale present (HCC) Start: 07-14-2024 End: 07-14-2024 Telephone encounter Jaqueline Del Cid RNpainter railroad car Comment on above: Appointment Confirmation Start: 07-12-2024 End: 07-12-[address] Christopher Turk DO -[facility] Work Phone: Start: 07-12-2024 End: 07-12-2024 ambulatory Chema Chace Facility:[facility] Start: 07-09-2024 End: 07-09-2024 ambulatory Christopher Turk Facility:[facility] Start: 07-09-2024 End: 07-09-[address] Christopher Turk DO -Physical Therapy Work Phone: Start: 07-09-2024 End: 07-09-2024 ambulatory [facility] Facility:[facility] Start: 07-07-2024 End: 07-08-2024 Telephone encounter Fatimah Robbins RNpainter railroad car Comment on above: Patient Question (EGD Instructions neede d) Patient Question Start: 07-07-2024 End: 07-07-[address] Chema Perry MD -[facility] Work Phone: Start: 07-07-2024 End: 07-07-2024 ambulatory Chema Perry [facility] Start: 07-06-2024 [facility] Start: 07-05-2024 End: 07-05-[address] 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 (I-Stat) Work Phone: Cat Scan Comment on above: Hiatal hernia [K44.9] Start: 06-23-2024 End: 06-23-2024 [facility] ANILA DE PAZ Facility:[facility] Start: 06-18-2024 End: 06-18-2024 Preprocedural examination done Anlia De Paz MD Work Phone: [facility] Start: 06-18-2024 End: 07-07-2024 Orders Only Anila De Paz MD Work Phone: General Surgery Comment on above: H/O acute myocardial infarction (Primary Dx); Cardiomyopathy, unspecified type (HCC); Pre-op evaluation; Encounter to establish care Hiatal hernia (Prima ry Dx) Pre-Procedure Leticia vázquez Start: 06-17-2024 End: 06-17-2024 Telephone encounter Taylor Forrest RN General Surgery Comment on above: Physical Geographer - Other (Chart prep) Start: 06-16-2024 End: 06-16-2024 ambulatory Chemawolfgang CabanChace Facility:[facility] Start: 06-10-2024 End: 06-10-2024 Refill Humza Camejo MD Work Phone: Ophthalmology Comment on above: Refill Request Start: 06-07-2024 End: 06-07-2024 Emergency department patient visit Susan Emery Facility:[facility] Start: 06-05-2024 End: 06-05-2024 ambulatory [facility] Facility:[facility] Start: 05-17-2024 End: 05-17-2024 ambulatory [facility] Facility:[facility] Start: 05-17-2024 End: 05-17-2024 Patient encounter procedure Susan Squires MD Work Phone: General Surgery Comment on above: Hiatal hernia (Primary Dx); Gastroesophageal reflux disease, unspecified whether esophagitis present Start: 05-04-2024 End: 05-04-2024 ambulatory [facility] Facility:[facility] Start: 05-03-2024 End: 05-03-2024 ambulatory [facility] Facility:[facility] Start: 05-03-2024 End: 05-03-2024 Patient encounter procedure Humza Camejo MD Work Phone: Ophthalmology Comment on above: Primary open angle glaucoma (POAG) of elisa th eyes, severe stage Start: 04-22-2024 End: 04-22-2024 ambulatory [facility] Facility:[facility] Start: 04-19-2024 End: 04-19-2024 ambulatory [facility] Facility:[facility] Start: 04-17-2024 End: 04-17-2024 Emergency department patient visit Vincent Morris Facility:[facility] Start: 04-16-2024 End: 04-16-2024 [facility] Facility:[facility] Start: 04-09-2024 End: 04-09-2024 [facility] Facility:[facility] Start: 04-05-2024 End: 04-05-2024 ambulatory [facility] Facility:[facility] Start: 04-01-2024 End: 04-01-2024 ambulatory [facility] Facility:[facility] Start: 03-25-2024 End: 03-25-2024 ambulatory [facility] Facility:[facility] Start: 03-25-2024 End: 03-25-2024 Office outpatient visit 40 minutes Laisha Lizarraga APRN.CNP Work Phone: Neurology Comment on above: 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, psychotic disturbance, mood disturbance, or anxiety (HCC) (Primary Dx); Physical deconditioning; Gait instability; Fine motor impairment; Dizziness; Depression, unspecified depression type; Postural kyphosis of thoracic region Start: 03-24-2024 Refill Humza Camejo MD Work Phone: Ophthalmology Comment on above: Refill Request Start: 03-18-2024 End: 03-18-2024 ambulatory [facility] Facility:[facility] Start: 03-16-2024 End: 03-16-2024 ambulatory [facility] Facility:[facility] Start: 03-16-2024 End: 03-16-2024 ambulatory Jd VALENCIA Facility:[facility] Start: 03-12-2024 Refill Laisha Lizarraga APRN.RECEPTION CENTRE MANAGER Work Phone: Neurology Comment on above: Refill Request Start: 03-01-2024 End: 03-01-2024 ambulatory Malachi Caal Facility:[facility] Start: 02-23-2024 End: 02-23-2024 ambulatory Chema Perry Facility:[facility] Start: 02-11-2024 End: 02-12-2024 ambulatory Chema Chace Facility:[facility] Start: 12-26-2023 Refill Laisha Lizarraga DIRECTOR [employer].RECEPTION CENTRE MANAGER Work Phone: Neurology Comment on above: Refill Request Start: 12-26-2023 Refill Humza Camejo MD Work Phone: Ophthalmology Comment on above: Refill Request Start: 12-05-2023 Non-patient / Non-visit Dr. Chema Perry Work Phone: [facility] Work Phone: Start: 12-04-2023 Non-patient / Non-visit [facility]. [facility] Start: 12-04-2023 End: 12-04-[address] Chema Perry Work Phone: [facility] Work Phone: Start: 12-04-2023 End: 12-04-[address] Chema Perry Work Phone: [facility]-Cardiovascula r Services Work Phone: Start: 11-12-2023 End: 11-12-[address] 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 Chema Perry Work Phone: [facility] Work Phone: Start: 10-14-2023 End: 10-14-[address] Chema Perry Work Phone: [facility]-Laboratory Work Phone: Start: 10-08-2023 End: 10-08-[address] Chema Perry Work Phone: [facility]-Pulmonary Medicine [facility] Work Phone: Start: 09-24-2023 End: 09-24-[address] Chema Perry Work Phone: [facility] Work Phone: Start: 08-14-2023 End: 08-14-[address] Chema Perry Work Phone: [facility] Work Phone: Start: 08-14-2023 End: 08-14-[address] Chema Perry Work Phone: [facility]-Physical Therapy Work Phone: Start: 08-14-[address] Chema Perry Work Phone: [facility]-Physical Therapy Work Phone: Start: 08-13-2023 End: 08-13-[address] Chema Perry Work Phone: [facility] [facility] [place] Work Phone: Start: 07-15-2023 End: 07-15-[address] Chema Perry Work Phone: [facility] Work Phone: Start: 07-15-2023 End: 07-15-[address] 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 Chema Perry Work Phone: [facility] Work Phone: Start: 06-04-2023 End: 06-04-[address] Chema Perry Work Phone: [facility] Work Phone: Start: 05-29-2023 Non-patient / Non-visit Dr. Chema Perry Work Phone: [facility] Start: 05-29-2023 End: 05-29-[address] Chema Perry Work Phone: [facility] Work Phone: Start: 05-29-2023 End: 05-29-[address] Chema Perry Work Phone: [facility]-Cardiovascula r Services Work Phone: Start: 05-23-2023 Refill Laisha Lizarraga APRN.RECEPTION CENTRE MANAGER Work Phone: Neurology Start: 05-22-2023 End: 05-22-[address] Chema Perry Work Phone: [facility] [facility] Work Phone: Start: 05-12-2023 End: 05-12-[address] Chema Perry Work Phone: [facility] Work Phone: Start: 05-06-2023 End: 05-06-[address] Chema Perry Work Phone: [facility] Work Phone: Start: 05-06-2023 End: 05-06-[address] Chema Perry Work Phone: [facility]-Speech Therapy Work Phone: Start: 04-22-2023 End: 04-22-[address] Chema Perry Work Phone: [facility]-Laboratory Work Phone: Start: 04-08-2023 ambulatory Laisha Lizarraga APRN.RECEPTION CENTRE MANAGER Work Phone: Neurology Comment on above: Tolerating Donepezil Start: 04-07-2023 End: 04-07-[address] Chema Perry Work Phone: [facility]-Pulmonary Medicine [facility] Work Phone: Start: 04-02-2023 End: 04-02-2023 Emergency department patient visit Dr. Chema Perry Work Phone: [facility]-Emergency Department Work Phone: Start: 04-01-[address] Chema Perry Work Phone: [facility]-Speech Therapy Work Phone: Start: 03-24-2023 End: 03-24-[address] Chema Perry Work Phone: [facility] Work Phone: Start: 02-12-2023 End: 02-12-[address] Chema Perry Work Phone: [facility] [place] Work Phone: Start: 02-12-[address] [facility] Start: 02-06-2023 End: 02-06-[address] Chema Perry Work Phone: [facility] Work Phone: Start: 02-06-2023 End: 02-06-[address] Chema Perry Work Phone: [facility]-Sleep Lab Start: 02-04-[address] Chema Perry Work Phone: [facility]-Speech Therapy Start: 01-29-2023 End: 01-29-[address] Chema Perry Work Phone: [facility] [place] Start: 01-29-2023 End: 01-29-[address] Chema Perry Work Phone: [facility] Work Phone: Start: 01-29-2023 End: 01-29-[address] Chema Perry Work Phone: [facility]-Occupational Therapy Start: 01-20-2023 End: 01-20-[address] Chema Perry Work Phone: [facility] Start: 01-17-2023 End: 01-17-[address] Chema Perry Work Phone: [facility] Radiology Start: 01-17-[address] Chema Perry Work Phone: [facility]-Occupational Therapy Start: 01-15-2023 End: 01-15-[address] Chema Perry Work Phone: [facility] Work Phone: Start: 01-15-2023 End: 01-15-[address] Chema Perry Work Phone: [facility] Start: 01-10-2023 End: 01-10-[address] Chema Perry Work Phone: [facility] Work Phone: Start: 01-10-2023 End: 01-10-[address] Chema Perry Work Phone: [facility]-Outpatient Breast Imaging Start: 01-08-2023 End: 01-08-[address] Chema Perry Work Phone: [facility] Start: 01-02-2023 End: 01-02-[address] Chema Perry Work Phone: [facility] Start: 01-01-2023 End: 01-01-[address] Che[facility] Perry [facility] Start: 12-25-2022 Non-patient / Non-visit Dr. Chema Perry Work Phone: [facility] Start: 12-25-2022 End: 12-25-[address] Chema Perry Work Phone: [facility]-Cardiovascula r Services Start: 12-25-2022 End: 12-25-[address] Chema Perry Work Phone: [facility] Start: 12-11-[address] Chema Perry Work Phone: [facility]-Physical Therapy Start: 12-04-2022 End: 12-04-2022 Subsequent hospital visit by physician [employer] (Lg Bore/3t) Radiology Comment on above: 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) [F03.90] Start: 12-03-2022 End: 12-03-[address] Chema Perry Work Phone: [facility] Work Phone: Start: 12-03-2022 End: 12-03-[address] Chema Perry Work Phone: [facility]-Laboratory Start: 11-23-2022 End: 11-23-[address] Chema Perry Work Phone: [facility] Start: 11-13-2022 End: 11-13-2022 Patient encounter procedure Laisha Lizarraga APRN.CNP Work Phone: Neurology Comment on above: 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) (Primary Dx); History of complex partial epilepsy; Gait instability; Multiple falls; Physical deconditioning; Depression, unspecified depression type; Anxiety; Dizziness; Imbalance Start: 10-23-2022 End: 10-23-[address] Chema Perry Work Phone: [facility] Start: 10-21-2022 End: 10-21-[address] Chema Perry Work Phone: [facility] Start: 10-16-2022 End: 10-16-2022 Emergency department patient visit Dr. Chema Perry Work Phone: [facility]-Emergency Department Start: 10-14-[address] Chema Perry Work Phone: [facility]-Speech Therapy Start: 09-21-2022 End: 09-21-[address] Chema Perry Work Phone: [facility] Work Phone: Start: 09-21-2022 End: 09-21-[address] Chema Perry Work Phone: [facility] Start: 09-16-[address] Chema Perry Work Phone: [facility]-Speech Therapy Start: 09-06-2022 End: 09-06-[address] Chema Perry Work Phone: [facility] Work Phone: Start: 09-06-2022 End: 09-06-[address] Chema Perry Work Phone: [facility] Start: 07-30-2022 End: 07-30-[address] Chema Perry Work Phone: [facility] Work Phone: Start: 07-30-2022 End: 07-30-[address] Chema Perry Work Phone: [facility]-Speech Therapy Start: 07-24-2022 End: 07-24-[address] Chema Perry Work Phone: [facility] Start: 07-22-2022 End: 07-22-[address] Arun Ramos Work Phone: [facility] Start: 07-22-[address] Arun Ramos Work Phone: [facility]-Physical Therapy Start: 07-18-2022 End: 07-18-[address] Arun Ramos Work Phone: [facility] Radiology Start: 07-13-2022 End: 07-13-2022 Emergency department patient visit Dr. Arun Ramos Work Phone: [facility]-Emergency Department Start: 07-12-2022 End: 07-12-[address] Arun Ramos Work Phone: [facility] Work Phone: Start: 07-12-2022 End: 07-12-[address] Arun Ramos Work Phone: [facility] Start: 07-08-2022 Non-patient / Non-visit Dr. Arun Ramos Work Phone: [facility] Internal Medicine Start: 07-07-2022 End: 07-07-[address] Arun Ramos Work Phone: [facility] Start: 07-05-[address] Arun Ramos Work Phone: [facility]-Physical Therapy Start: 07-04-2022 End: 07-04-[address] Arun Ramos Work Phone: [facility] Int Med at [facility] Start: 06-25-2022 End: 06-25-[address] Arun Ramos Work Phone: [facility]-Pulmonary Medicine [facility] Start: 06-07-2022 End: 06-07-[address] Arun Ramos Work Phone: [facility] Start: 05-13-2022 End: 05-13-[address] Arun Ramos Work Phone: [facility] [place] Start: 04-25-2022 End: 04-25-[address] Arun Raoms Work Phone: [facility] [place] Start: 04-11-2022 End: 04-11-2022 Patient encounter procedure Laisha Zia ROSASRECEPTION CENTRE MANAGER Work Phone: Neurology Comment on above: Dementia without behavioral disturbance, unspecified dementia type (HCC) (Primary Dx); History of complex partial epilepsy; Gait instability; Multiple falls; Physical deconditioning; Cognitive communication deficit Start: 03-27-2022 End: 03-27-[address] Ar[facility] Ramos [facility] Start: 03-21-2022 End: 03-21-[address] Arun Ramos Work Phone: [facility] Int Med at [facility] Start: 03-20-2022 Non-patient / Non-visit Dr. Arun Ramos Work Phone: [facility] Internal Medicine Start: 03-15-2022 End: 03-15-2022 Emergency department patient visit Dr. Arun Ramos Work Phone: [facility]-Emergency Department Start: 03-15-[address] [facility] Start: 03-08-[address] [facility] Start: 03-07-2022 End: 03-07-[address] Arun Ramos Work Phone: [facility]-Laboratory, Phy Office 3rd Flr Start: 02-28-[address] Ar[facility] Ramos [facility] Start: 02-25-2022 End: 02-25-[address] [facility] Start: 02-15-2022 End: 02-15-2022 Emergency department patient visit Dr. Arun Ramos Work Phone: [facility]-Emergency Department Start: 02-14-2022 End: 02-14-[address] Arun Ramos Work Phone: [facility] Office 3rd Flr Start: 02-13-[address] Arun Ramos Work Phone: [facility]-Physical Therapy Start: 02-07-2022 End: 02-07-[address] Arun Ramos Work Phone: [facility]-Pulmonary Services/Neurology Start: 02-07-2022 Non-patient / Non-visit Dr. Arun Ramos Work Phone: [facility] Start: 02-06-[address] Arun Ramos [facility] Start: 01-23-2022 End: 01-23-2022 Patient encounter procedure Mitchel Muse MD Work Phone: Neurology Comment on above: Dementia without behavioral disturbance, unspecified dementia type (HCC) (Primary Dx); History of complex partial epilepsy; Gait instability; Multiple falls; Depression, unspecified depression type; Anxiety; Physical deconditioning Start: 01-10-2022 End: 01-10-[address] Ar[facility] Ramos [facility] Start: 11-26-2021 End: 11-26-[address] Arun Ramos Work Phone: [facility]-Cat Scan, [facility] Start: 11-23-2021 End: 11-23-[address] Arun Ramos Work Phone: [facility] Start: 11-23-2021 End: 11-23-[address] Arun Ramos Work Phone: [facility]-Laboratory, Phy Office 3rd Flr Start: 11-13-2021 End: 11-13-2021 Patient encounter procedure Laisha Lizarraga APRN.RECEPTION CENTRE MANAGER Work Phone: Neurology Comment on above: Dementia without behavioral disturbance, unspecified dementia type (HCC) (Primary Dx); History of complex partial epilepsy; Gait instability; Multiple falls; Depression, unspecified depression type; Anxiety; Physical deconditioning Start: 11-07-2021 End: 11-07-[address] Arun Ramos [facility] Start: 10-08-2021 Non-patient / Non-visit Dr. Arun Ramos Work Phone: [facility] Inpatient Physicians Start: 10-07-2021 Non-patient / Non-visit Dr. Arun Ramos Work Phone: [facility] Physicians Start: 10-06-2021 Non-patient / Non-visit Dr. Arun Ramos Work Phone: [facility] Inpatient Physicians Start: 10-05-2021 Non-patient / Non-visit Dr. Arun Ramos Work Phone: [facility] Inpatient Physicians Start: 10-05-2021 End: 10-08-2021 Evaluation and management of inpatient Dr. Arun Ramos Work Phone: [facility]-Medical Surgical 3 Start: 09-04-2021 End: 10-04-2021 Evaluation and management of inpatient Dr. Arun Ramos Work Phone: [facility]-Transitional Care Unit Start: 09-04-2021 Non-patient / Non-visit Dr. Arun Ramos Work Phone: [facility] Physicians Start: 09-03-2021 Non-patient / Non-visit Dr. Arun Ramos Work Phone: [facility] Inpatient Physicians Start: 09-02-2021 Non-patient / Non-visit Dr. Arun Ramos Work Phone: [facility] Inpatient Physicians Start: 09-02-2021 End: 09-04-2021 Evaluation and management of inpatient Dr. Arun Ramos Work Phone: [facility]-Medical Surgical 2 Start: 09-01-2021 End: 09-01-2021 Emergency department patient visit Dr. Arun Ramos Work Phone: [facility]-Emergency Department Start: 08-13-[address] Arun Ramos Work Phone: [facility] Start: 08-09-2021 End: 08-09-[address] Arun Ramos Work Phone: [facility]-Pulmonary Medicine [facility] Start: 02-06-[address] Arun Ramos Work Phone: [facility] Procedures Date Procedure Procedure Detail Performing Clinician Start: 11-15-2024 Antibody screen ANILA DE PAZ Comment on above: Order Comment: Specimen Type: BLOOD SPEC IMENOrdering Facility: [facility] Address: [address] [place] [address] Performed By: #### T SCR ####CC [facility] BLOOD BANKCLCT [id number] [place] [address] [place] Start: 11-09-2024 X-ray of chest, PA and lateral views Dr. Susan Emery DO Work Phone: Start: 11-01-2024 Visual field xm uni/bi w/interp extended exam Humza Camejo MD Work Phone: Start: 10-18-[address] Chema Perry MD Work Phone: Start: 09-18-2024 CT of chest without contrast Dr. Chema Perry MD Work Phone: Start: 09-14-2024 Antibody screen ANILA AGUILARARRETE Comment on above: Order Comment: Specimen Type: BLOOD SPEC IMENOrdering Facility: [facility] Address: [address] [place] [address] Performed By: #### T [id number] ####CC [facility] [id number] [address] [place] Start: 09-13-2024 Esophagoscp rig transoral hypopharynx crv ok Srinivasan MD Work Phone: Start: 09-13-2024 Ercp dx collection specimen brushing/washing Alisa Haile MD Work Phone: Start: 09-10-2024 Nerve conduction studies 5-6 studies Denice Jacobs PA-C Work Phone: Start: 09-07-2024 Mri abdomen w/o & w/contrast material Anila De Paz MD Work Phone: Start: 09-07-2024 3d rendering w/interp&postproc diff work station Anila De Paz MD Work Phone: Start: 08-03-2024 Ecg routine ecg w/least 12 lds i&r only [facility] Provider Start: 07-21-2024 Esophagogastroduodenoscopy transoral diagnostic Anila De Paz MD Work Phone: Start: 07-19-2024 X-ray of knee, four or more views Dr. Sulema Perry MD Work Phone: Start: 07-09-2024 Echocardiography ANILA DE PAZ Start: 06-24-2024 Ct abdomen & pelvis w/contrast material Anila De Paz MD Work Phone: Start: 05-03-2024 Computerized ophthalmic imaging optic nerve Humza Camejo MD Work Phone: Start: 10-27-2023 Visual field xm uni/bi w/interp extended exam Humza Camejo MD Work Phone: Start: 07-15-[address] Chema Perry Work Phone: Start: 06-04-2023 MRI of brain without contrast Dr. Chema Perry Work Phone: Start: 05-29-2023 Cardiovascular stress test using pharmacologic stress agent Dr. Chema Perry Work Phone: Start: 01-20-2023 Radiography of thoracic spine Dr. Chema Perry Work Phone: Start: 01-20-2023 X-ray of lumbar spine, two or three views Dr. Chema Perry Work Phone: Start: 01-17-2023 Radiography of thoracic spine Dr. Chema Perry Work Phone: Start: 01-17-2023 X-ray of lumbar spine, two or three views Dr. Chema Perry Work Phone: Start: 01-10-[address] Chema Perry Work Phone: Start: 01-10-[address] Chema Perry Work Phone: Start: 12-25-[address] Chema Perry Work Phone: Start: 12-25-2022 Radiologic examination of knee Dr. Chema Perry Work Phone: Start: 12-04-2022 3d rendering w/interp&postproc diff work station Laisha Lizarraga APRN.[employer] CENT[employer] MANAGER Work Phone: Start: 12-04-2022 Mri brain brain stem w/o contrast material Laisha Lizarraga APRN.CNP Work Phone: Start: 10-16-2022 Plain x-ray of elbow Dr. Chema Perry Work Phone: Start: 09-21-2022 Plain x-ray of elbow Dr. Chema Perry Work Phone: Start: 09-21-2022 Plain X-ray of shoulder Dr. Chema Perry Work Phone: Start: 09-21-2022 Plain x-ray of wrist Dr. Chema Perry Work Phone: Start: 09-06-2022 MRI of joint of lower extremity Dr. Di Perry Work Phone: Start: 07-18-2022 Plain X-ray of shoulder Dr. Arun Ramos Work Phone: Start: 07-13-2022 Pelvis X-ray Dr. Arun Raoms Work Phone: Start: 07-13-2022 Plain x-ray of elbow Dr. Arun Ramos Work Phone: Start: 07-13-2022 CT cervical spine without contrast Dr. Arun Ramos Work Phone: Start: 07-13-2022 CT of head without contrast Dr. Arun Ramos Work Phone: Start: 07-12-2022 Computed tomography of abdomen and pelvis with contrast Dr. Arun Ramos Work Phone: Start: 03-15-2022 Plain x-ray of pelvis and lower extremity Dr. Arun Ramos Work Phone: Start: 03-15-2022 CT of head without contrast Dr. Arun Ramos Work Phone: Start: 11-26-2021 CT angiography of chest with contrast Dr. Arun Ramos Work Phone: Start: 10-05-2021 Plain chest X-ray Dr. Arun Ramos Work Phone: Start: 10-05-2021 SARS-CoV-2 Antigen (Rapid) Dr. Arun Ramos Work Phone: Start: 09-26-2021 Plain chest X-ray Dr. Arun Ramos Work Phone: Start: 09-19-2021 SARS-CoV-2 Antigen (Rapid) Dr. Arun Ramos Work Phone: Start: 09-18-2021 Plain chest X-ray Dr. Arun Ramos Work Phone: Start: 09-18-[address] rAun Ramos Work Phone: Start: 09-13-2021 Plain chest X-ray Dr. Arun Ramos Work Phone: Start: 09-03-2021 SARS-CoV-2 Antigen (Rapid) Dr. Arun Ramos Work Phone: Start: 09-02-2021 Computed tomography of abdomen and pelvis with intravenous contrast Dr. Arun Ramos Work Phone: Start: 09-02-2021 Computerized axial tomography of lumbar spine with contrast Dr. Arun Ramos Work Phone: Start: 09-02-[address] Arun Ramos Work Phone: Start: 09-01-2021 CT of chest without contrast Dr. Arun herrera Work Phone: Start: 08-13-2021 MRI of lumbar spine Dr. Arun Ramos Work Phone: Bacteria identified in Urine by Culture Dr. Arun Ramos Work Phone: H/O: surgery History of hamme r toe correction Dr. Arun Ramos Work Phone: History of cholecystectomy Histo ry of cholecystectomy Dr. Chema Perry MD Comment on above: [facility] History of decompres majo of median nerve History of carpal tunnel release Dr. Arun Ramos Work Phone: History of tonsillectomy History of tonsillectomy and adenoidectomy Dr. Arun Ramos Work Phone: Urine culture Dr. Arun Ramos Work Phone: Viral antigen assay Dr. Arun Ramos Work Phone: Plan of Treatment Date Care Activity Detail Author Start: 12-19-2034 Urine microalbumin profile DTaP,Tdap,Td Vaccine (4 - Td or Tdap) [facility] Start: 01-05-2029 Urine microalbumin profile DTaP,Tdap,Td Vaccine (3 - Td or Tdap) [facility] Start: 11-17-2027 Diabetes Screening Diabetes Screening [facility] Start: 09-23-2027 Diabetes Screening Diabetes Screening [facility] Start: 09-14-2027 Diabetes Screening Diabetes Screening [facility] Start: 08-09-2027 Diabetes Screening Diabetes Screening [facility] Start: 12-20-2025 End: 12-20-2025 Patient encounter procedure 12/20/2025 3:30 PM EDT Office Visit Cardiology [address] [place] [address] Joan Guadalupe APRN.[employer] MANAGER [address] [place] [address] 1yr follow up Cardiology Comment on above: 1yr follow up Start: 11-16-2025 End: 04-25-2026 OCT OPTIC NERVE CIRRUS OU (BOTH EYES) OCT OPTIC NERVE CIRRUS OU (BOTH EYES) [facility] Imaging Routine Primary open angle glaucoma (POAG) of both eyes, severe stage Expected: 11/16/2025, Expires: 04/25/2026 [facility] Work Phone: Comment on above: Expected: 11/16/2025, Expires: Start: 09-14-2025 Hepatitis B surface antibody level LDL Cholesterol [facility] Start: 08-17-2025 End: 01-24-2026 VISUAL FIELD 24-2 OU (BOTH EYES) VISUAL FIELD 24-2 OU (BOTH EYES) [facility] Imaging Routine Primary open angle glaucoma (POAG) of both eyes, severe stage Expected: 08/17/2025, Expires: 01/24/2026 [facility] Work Phone: Comment on above: Expected: 08/17/2025, Expires: Start: 05-10-2025 End: 05-10-2025 Patient encounter procedure 05/10/2025 11:00 AM EDT Office Visit Neurology [address] [place] [address] Denice Jacobs PA-C [address] [place], [place] [phone] 6 month follow up Neurology Comment on above: 6 month follow up Start: 03-24-2025 End: 03-24-2025 Patient encounter procedure 03/24/2025 2:30 PM EDT Office Visit Neurology [address] [address] Laisha Lizarraga, DIRECTOR [employer] CENTRE MANAGER [address] [facility] [place] [address] follow up- no moca Neurology Comment on above: follow up- no moca Start: 02-17-2025 End: 02-17-2025 Patient encounter procedure 02/17/2025 1:00 PM EDT Office Visit Neurology [address] [place] [address] Dimitry Maguire MD [address] [place] [address] 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89] Start: 01-05-2025 End: 01-05-2025 Patient encounter procedure 01/05/2025 3:30 PM EDT Office Visit [facility] Ophthalmology [address] [place] [address] Estelle Hodges MD [address] [address] Return in about 2 months (around 01/01/2025) for OCT OU. Ophthalmology Comment on above: Return in about 2 months (around 01/02/20) for OCT OU. 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, psychotic disturbance, mood disturbance, or anxiety Neurology Comment on above: 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, psychotic disturbance, mood disturbance, or anxiety Start: 12-20-2024 End: 12-20-2024 Patient encounter procedure 12/20/2024 2:00 PM EDT Office Visit Cardiology [address] [place] [address] [place] [address] [place] [address] discuss medication/edema Cardiology Comment on above: discuss medication/edema Start: 12-09-2024 End: 12-09-2024 Patient encounter procedure 12/09/2024 1:40 PM EDT Office Visit [facility] [place] [address] [place] [phone] Luh Dean PA-C [address] [place] [phone] Degeneration of intervertebral disc of lumbar region, unspecified whether pain present [M51.369]; Left leg paresthesias [R20.2]; Right leg paresthesias [R20.2] [facility] [place] Comment on above: Degeneration of intervertebral disc of l umbar region, unspecified whether pain present [M51.369]; Left leg paresthesias [R20.2]; Right leg paresthesias [R20.2] Start: 12-03-2024 End: 12-03-2024 Patient encounter procedure 12/03/2024 11:20 AM EDT Office Visit General Surgery [address] [place] [id number] Anila De Paz MD [address] [place] [address] Follow-up/ LPEHR, Lap franchesca 2.3.25 General Surgery Comment on above: Follow-up/ LPEHR, Lap franchesca 2.3.25 Start: 11-26-2024 End: 11-26-2024 Patient encounter procedure 11/26/2024 4:15 PM EDT OT/PT/Speech Visit [facility] [address] [place] [address], OTR/L [address] [place] [address] 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, 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] -- Recheck [facility] Comment on above: 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, R29.898] -- Recheck Start: 11-19-2024 End: 11-19-2024 Patient encounter procedure 11/19/2024 4:15 PM EDT OT/PT/Speech Visit [facility] [address] [place] [address], OTR/L [address] [place] [address] 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, R29.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] [facility] Comment on above: 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, R29.898] Start: 11-15-2024 End: 02-14-2025 Amylase [Enzymatic activity/volume] in Serum or Plasma AMYLASE Lab Routine Generalized abdominal pain Diarrhea, unspecified type Expected: 11/15/2024, Expires: 02/14/2025 [facility] Comment on above: Expected: 11/15/2024, Expires: Start: 11-15-2024 End: 02-15-2025 CBC W Auto Differential panel - Blood COMPLETE BLOOD COUNT AND DIFFERENTIAL Lab Routine Generalized abdominal pain Diarrhea, unspecified type Expected: 11/15/2024, Expires: 02/15/2025 [facility] Comment on above: Expected: 11/15/2024, Expires: Start: 11-15-2024 End: 02-15-2025 Comprehensive metabolic 2000 panel - Serum or Plasma COMPREHENSIVE METABOLIC PANEL Lab Routine Generalized abdominal pain Diarrhea, unspecified type Expected: 11/15/2024, Expires: 02/15/2025 [facility] Work Phone: Comment on above: Expected: 11/15/2024, Expires: Start: 11-15-2024 End: 02-14-2025 Lipase [Enzymatic activity/volume] in Serum or Plasma LIPASE Lab Routine Generalized abdominal pain Diarrhea, unspecified type Expected: 11/15/2024, Expires: 02/14/2025 [facility] Comment on above: Expected: 11/15/2024, Expires: Start: 11-12-2024 End: 11-12-2024 Patient encounter procedure 11/12/2024 3:30 PM EDT OT/PT/Speech Visit [facility] [address] [place] [address], OTR/L [address] [place] [address] 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, R29.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] [facility] Comment on above: 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, R29.898] Start: 11-11-2024 End: 11-11-2024 Patient encounter procedure Cat Scan Comment on above: Nausea [R11.0] Start: 11-10-2024 End: 04-19-2025 OCT OPTIC NERVE CIRRUS OU (BOTH EYES) OCT OPTIC NERVE CIRRUS OU (BOTH EYES) [facility] Imaging Routine Primary open angle glaucoma (POAG) of both eyes, severe stage Expected: 11/10/2024, Expires: 04/19/2025 [facility] Work Phone: Comment on above: Expected: 11/10/2024, Expires: Start: 11-05-2024 End: 11-05-2024 Patient encounter procedure 11/05/2024 2:00 PM EDT OT/PT/Speech Visit [facility] [address] [place] [address], OTR/L [address] [place] [address] 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, R29.898] [facility] Comment on above: 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, R29.898] Start: 11-03-2024 End: 11-03-2024 Patient encounter procedure Neurology Comment on above: Three month follow up had EMG, neuropathy, frequent falls Start: 11-02-2024 End: 02-01-2025 CREATININE BLD CREATININE BLD Lab Routine Nausea Generalized abdominal pain Expected: 11/02/2024, Expires: 02/01/2025 [facility] Comment on above: Expected: 11/02/2024, Expires: Start: 11-01-2024 End: 11-01-2024 Patient encounter procedure 11/01/2024 2:45 PM EDT Office Visit [facility] Ophthalmology [address] [place], [place] [phone] Humza Camejo MD [address] [place] [address] Return in about 3 months (around 10/31/2024). Ophthalmology Comment on above: Return in about 3 months (around 11/01/19). Start: 10-29-2024 End: 10-29-2024 Patient encounter procedure General Surgery Comment on above: follow-up follow-up/Post-op 2 wks/ LPEHR, Lap franchesca 2.3.25 Start: 10-29-2024 End: 10-29-2024 Patient encounter procedure General Surgery Comment on above: Post-op 2 wks/ LPEHR, Lap franchesca 2.3.25 BI HAND Start: 10-13-2024 End: 10-13-2024 Patient encounter procedure Neurology Comment on above: Follow up Follow up - no moca Start: 10-08-2024 End: 10-08-2024 Patient encounter procedure 10/08/2024 10:20 AM EST Office Visit General Surgery [address] [place] [address] Anila De Paz MD [address] [place] [id number] post op 2 wks/ lap paraesophageal hernia repair 09/20/2024 General Surgery Comment on above: post op 2 wks/ lap paraesophageal hernia repair 09/20/2024 Start: 10-07-2024 End: 10-07-2024 Patient encounter procedure 10/07/2024 1:45 PM EST Office Visit Neurology [address] [address] Laisha Lizarraga, ROSMERY.RE[employer] CENT[employer] MANAGER [address] [place] [address] follow up- no moca Neurology Comment on above: follow up- no moca Start: 09-20-2024 End: 09-20-2024 Admission to same day surgery center 09/20/2024 12:35 PM EST - 09/20/2024 5:55 PM EST Surgery Admitting [address] [place] [address] Anila De Paz MD [address] [place] [address] LAPAROSCOPIC RPR PARAESOHAGEAL HERNIA W/ FUNDOPLASTY +/- MESH Admitting Comment on above: LAPAROSCOPIC RPR PARAESOHAGEAL HERNIA W/ FUNDOPLASTY +/- MESH Start: 09-20-2024 End: 09-20-2024 Laps rpr paraesphgl hrna incl fundplsty w/mesh LAPAROSCOPIC RPR PARAESOHAGEAL HERNIA W/ FUNDOPLASTY W/ MESH Hiatal hernia Epigastric pain Nausea and vomiting, unspecified vomiting type Pre-op exam 09/20/2024 12:35 PM EST [facility] Start: 09-20-2024 Subsequent hospital visit by physician 09/20/2024 12:35 PM EST Hospital Encounter Admitting [address] [place] [address] Anila De Paz MD [address] [place] [address] Hiatal hernia [K44.9], Epigastric pain [R10.13], Nausea and vomiting, unspecified vomiting type [R11.2], Pre-op exam [Z01.818] Admitting Comment on above: Hiatal hernia [K44.9], Epigastric pain [ R10.13], Nausea and vomiting, unspecified vomiting type [R11.2], Pre-op exam [Z01.818] Start: 09-18-2024 [facility] Start: 09-15-2024 End: 09-15-2024 Anesthesia consultation 09/15/2024 8:00 AM EST PAT Pre Anesthesia [address] [place] [address] 2, Pacc [address] [place] [address] preop/ lap hernia repair 09/20/2024 Pre Anesthesia Comment on above: preop/ lap hernia repair 09/20/2024 Start: 09-14-2024 End: 09-14-2024 ambulatory 09/14/2024 3:00 PM EST Results Only [facility] [address] [place] [address] Hiatal hernia [K44.9]. Epigastric pain [R10.13]. Nausea and vomiting, unspecified vomiting type [R11.2]. Pre-op exam [Z01.818] [facility] Comment on above: Hiatal hernia [K44.9]. Epigastric pain [ R10.13]. Nausea and vomiting, unspecified vomiting type [R11.2]. Pre-op exam [Z01.818] Start: 09-14-2024 End: 09-14-2024 Anesthesia consultation 09/14/2024 2:00 PM EST PAT Pre Anesthesia [address] [place] [address] 1, Pacc [place] [address] [place] [address] preop/ lap hernia repair 09/20/2024 Pre Anesthesia Comment on above: preop/ lap hernia repair 09/20/2024 Start: 09-14-2024 End: 12-14-2024 LIPID PANEL, NONFASTING [facility] Work Phone: Comment on above: Expected: 09/14/2024, Expires: Start: 09-13-2024 End: 09-13-2024 Patient encounter procedure Gastroenterology Comment on above: Dilated pancreatic duct [K86.89], severe dilation of CBD Start: 09-10-2024 End: 09-10-2024 ambulatory Neurology Comment on above: R PN r R PN Start: 09-07-2024 End: 09-07-2024 Patient encounter procedure 09/07/2024 9:30 AM EST Appointment Radiology [address] [place], [place] [address] Procedure: MRI PANC/MAGNOLIA WO/W IVCON Radiology Comment on above: Procedure: MRI PANC/MAGNOLIA WO/W IVCON Start: 09-03-2024 End: 09-03-2025 CBC W Auto Differential panel - Blood COMPLETE BLOOD COUNT AND DIFFERENTIAL Lab Routine Hiatal hernia Epigastric pain Nausea and vomiting, unspecified vomiting type Pre-op exam Expected: 09/03/2024, Expires: 09/03/2025 [facility] Comment on above: Expected: 09/03/2024, Expires: Start: 09-03-2024 End: 09-03-2025 Comprehensive metabolic 2000 panel - Serum or Plasma COMPREHENSIVE METABOLIC PANEL Lab Routine Hiatal hernia Epigastric pain Nausea and vomiting, unspecified vomiting type Pre-op exam Expected: 09/03/2024, Expires: 09/03/2025 [facility] Work Phone: Comment on above: Expected: 09/03/2024, Expires: Start: 09-03-2024 End: 09-03-2025 CONFIRM BLOOD TYPE CONFIRM BLOOD TYPE Blood Bank Routine Hiatal hernia Epigastric pain Nausea and vomiting, unspecified vomiting type Pre-op exam Expected: 09/03/2024, Expires: 09/03/2025 [facility] Comment on above: Expected: 09/03/2024, Expires: Start: 09-03-2024 End: 09-03-2024 Patient encounter procedure 09/03/2024 2:00 PM EST Office Visit General Surgery [address] [place] [address] Anila De Paz MD [address] [place] [address] Follow-up/ Pre-op PEHR/ completed EGD, CT ABD, CARDS Cleared/ Possible sx date 09/20 or 09/22 General Surgery Comment on above: Follow-up/ Pre-op PEHR/ completed EGD, C T ABD, CARDS Cleared/ Possible sx date 09/20 or 09/22 Start: 09-03-2024 End: 12-03-2024 TYPE AND SCREEN,30 DAY TYPE AND SCREEN,30 DAY Blood Bank Routine Hiatal hernia Epigastric pain Nausea and vomiting, unspecified vomiting type Pre-op exam Expected: 09/03/2024, Expires: 12/03/2024 [facility] Comment on above: Expected: 09/03/2024, Expires: Start: 08-25-2024 End: 08-25-2024 Patient encounter procedure 08/25/2024 3:30 PM EST Office Visit Vascular Surgery [address] [address] Carotid bruit, unspecified laterality [R09.89] Vascular Surgery Comment on above: Carotid bruit, unspecified laterality [R 09.89] Start: 08-18-2024 Advance Directive Discussion Advance Directive Discussion [facility] Start: 08-09-2024 End: 08-09-2024 ambulatory 08/09/2024 4:00 PM EST Results Only Rafita Friedman [facility] [address] [place] [address] Rafita [place] [facility] Start: 08-06-2024 End: 11-05-2024 CBC panel - Blood by Automated count COMPLETE BLOOD COUNT Lab Routine Neuropathy Expected: 08/06/2024, Expires: 11/05/2024 [facility] Comment on above: Expected: 08/06/2024, Expires: Start: 08-06-2024 End: 11-05-2024 Cobalamin (Vitamin B12) [Mass/volume] in Serum or Plasma VITAMIN B12 Lab Routine Neuropathy Expected: 08/06/2024, Expires: 11/05/2024 [facility] Comment on above: Expected: 08/06/2024, Expires: Start: 08-06-2024 End: 11-05-2024 Comprehensive metabolic 2000 panel - Serum or Plasma COMPREHENSIVE METABOLIC PANEL Lab Routine Neuropathy Expected: 08/06/2024, Expires: 11/05/2024 [facility] Comment on above: Expected: 08/06/2024, Expires: Start: 08-06-2024 End: 11-05-2024 PROTEIN ELECTROPHORESIS SERUM W/INTERP PROTEIN ELECTROPHORESIS SERUM W/INTERP Lab Routine Paresthesia of both feet Expected: 08/06/2024, Expires: 11/05/2024 [facility] Comment on above: Expected: 08/06/2024, Expires: Start: 08-06-2024 End: 11-05-2024 Pyridoxine [Mass/volume] in Serum or Plasma VITAMIN B6/PYRIDOXIN Lab Routine Neuropathy Expected: 08/06/2024, Expires: 11/05/2024 [facility] Comment on above: Expected: 08/06/2024, Expires: Start: 08-06-2024 End: 11-05-2024 VITAMIN B1 (THIAMINE), WHOLE BLOOD VITAMIN B1 (THIAMINE), WHOLE BLOOD Lab Routine Neuropathy Expected: 08/06/2024, Expires: 11/05/2024 [facility] Comment on above: Expected: 08/06/2024, Expires: Start: 08-06-2024 End: 08-06-2024 Patient encounter procedure 08/06/2024 10:00 AM EST Office Visit Neurology [address] [phone] Denice Jacobs PA-C [address] [place], [place] [address] Paresthesia of both feet [R20.2] Neurology Comment on above: Paresthesia of both feet [R20.2] Start: 08-03-2024 End: 08-03-2024 Patient encounter procedure 08/03/2024 3:30 PM EST Office Visit Cardiology [address] [place] [address] [place] [address] [place] [address] H/O acute myocardial infarction [I25.2]; Cardiomyopathy, unspecified type (HCC) [I42.9]; Pre-op evaluation [Z01.818] Cardiology Comment on above: H/O acute myocardial infarction [I25.2]; Cardiomyopathy, unspecified type (HCC) [I42.9]; Pre-op evaluation [Z01.818] Start: 08-02-2024 End: 08-02-2024 Patient encounter procedure 08/02/2024 2:15 PM EST Office Visit [facility] Ophthalmology [address] [place] [address] Humza Camejo MD [address] [place], [place] [phone] Return in about 3 months (around 08/02/2024). Ophthalmology Comment on above: Return in about 3 months (around 024). Start: 07-21-2024 End: 07-21-2024 Patient encounter procedure Gastroenterology Comment on above: EGD MAC Start: 07-16-2024 End: 07-16-2024 Anesthesia consultation 07/16/2024 3:00 PM EST PAT Pre Anesthesia [address] [facility] [place] [address] 1, Pacc Rafita [address] [place] [address] pre op 07/21 Pre Anesthesia Comment on above: pre op 07/21 Start: 07-09-2024 End: 07-09-2024 Patient encounter procedure 07/09/2024 11:20 AM EST Office Visit Cardiology [address] [place] [address] H/O acute myocardial infarction [I25.2]; Cardiomyopathy, unspecified type (HCC) [I42.9]; Pre-op evaluation [Z01.818] Cardiology Comment on above: H/O acute myocardial infarction [I25.2]; Cardiomyopathy, unspecified type (HCC) [I42.9]; Pre-op evaluation [Z01.818] Start: 07-01-2024 End: 07-01-2024 Patient encounter procedure 07/01/2024 1:45 PM EST Office Visit Neurology [address] [address] Laisha Lizarraga, ROSMERY.RECEPTION CENTRE MANAGER [address] [id number] F/U Neurology Comment on above: F/U Start: 06-18-2024 End: 09-17-2024 CREATININE BLD CREATININE BLD Lab Routine Hiatal hernia Expected: 06/18/2024, Expires: 09/17/2024 [facility] Comment on above: Expected: 06/18/2024, Expires: Start: 06-18-2024 End: 06-18-2024 Patient encounter procedure General Surgery Comment on above: New consult pt of Dr Squires Large Hiata l hernia on recent CT Gerd, frail, needs EGD Hiatal Hernia referr al from Dr. Squires/ HX: TIA, seizures, Dementia, asthma, UT, HTN, HLD, DVT, CA, GERD, SX: VHR, appy, Frail / CT ABD: R inguinal hernia (stable, LARGE hiatal hernia, dilated bile duct / NEEDS: EGD Start: 06-04-2024 End: 06-04-2024 Patient encounter procedure 06/04/2024 9:50 AM EDT Office Visit General Surgery [address] [place], [place] [id number] Laisha Sheppard MD [address] [place] [address] Hiatal hernia [K44.9] General Surgery Comment on above: Hiatal hernia [K44.9] Start: 05-17-2024 End: 05-17-2024 Patient encounter procedure 05/17/2024 3:00 PM EDT Office Visit General Surgery [address] [place], [place] [id number] Susan Squires MD [address] [place] [address] hernia General Surgery Comment on above: hernia Start: 05-03-2024 End: 05-03-2024 Patient encounter procedure 05/03/2024 2:00 PM EDT Office Visit [facility] Ophthalmology [address] [place] [address] Humza Camejo MD [id number] [place], [place] [id number] Return in about 6 months (around 04/28/2024). Ophthalmology Comment on above: Return in about 6 months (around 04/28/20). Start: 04-18-2024 Covid-19 Vaccine ( season) Covid-19 Vaccine () [facility] Start: 04-18-2024 Covid-19 Vaccine () Covid-19 Vaccine () [facility] Start: 04-18-2024 Influenza vaccination [facility] Start: 03-25-2024 End: 03-25-2024 Patient encounter procedure 03/25/2024 1:45 PM EDT Office Visit Neurology [address] [address] Laisha Lizarraga, ROSMERY.RECEPTION CENTRE MANAGER [address] [place] [address] [facility] Follow Up Neurology Comment on above: [facility] Follow Up Start: 08-18-2023 Advance Directive Discussion Advance Directive Discussion [facility] Start: 05-08-2023 Diabetes Screening Diabetes Screening [facility] Start: 04-18-2023 Covid-19 Vaccine ( season) Covid-19 Vaccine ( season) [facility] Start: 04-18-2023 Covid-19 Vaccine ( season) Covid-19 Vaccine () [facility] Start: 04-18-2023 Influenza vaccination [facility] Start: 01-17-2023 Radiography of thoracic spine Thoracic Spine 3 Views [facility] Start: 01-17-2023 XR Thoracic spine 3 Views [facility] Start: 01-17-2023 X-ray of lumbar spine, two or three views Lumbar Spine 2 or 3 Views [facility] Start: 01-17-2023 XR Lumbar spine 2 or 3 Views [facility] Start: 01-02-2023 Patient referral [facility] Work Phone: Start: 08-18-2022 ADVANCE DIRECTIVE DISCUSSION ADVANCE DIRECTIVE DISCUSSION [facility] Start: 04-18-2022 Influenza vaccination INFLUENZA (#1) [facility] Start: 02-25-2022 Methylmalonate measurement [facility] Work Phone: Start: 02-15-2022 [facility] Work Phone: Start: 09-22-2021 COVID-19 VACCINE (4 - Booster for Pfizer series) COVID-19 VACCINE (4 - Booster for Pfizer series) [facility] Start: 08-18-2021 ADVANCE DIRECTIVE DISCUSSION ADVANCE DIRECTIVE DISCUSSION [facility] Start: 07-17-2021 COVID-19 VACCINE (4 - Booster for Pfizer series) COVID-19 VACCINE (4 - Booster for Pfizer series) [facility] Start: 07-17-2021 COVID-19 VACCINE (4 - Pfizer series) COVID-19 VACCINE (4 - Pfizer series) [facility] Start: 12-01-2020 Screening for osteoporosis Bone Density Screening [facility] Start: 2017 RSV Vaccine (1 - 1-dose 75+ series) RSV Vaccine (1 - 1-dose 75+ series) [facility] Start: 2007 BONE DENSITY BONE DENSITY [facility] Start: 2007 Bone Density Screening Bone Density Screening [facility] Start: 2007 Pneumococcal Vaccine: 65+ (1 - PCV) Pneumococcal Vaccine: 65+ (1 - PCV) [facility] Start: 2007 PNEUMOCOCCAL: 65+ (1 - PCV) PNEUMOCOCCAL: 65+ (1 - PCV) [facility] Start: 2007 PNEUMOVAX AGE 65 AND OVER WITH 5YR LOOKBACK (#1) PNEUMOVAX AGE 65 AND OVER WITH 5YR LOOKBACK (#1) [facility] Start: 2002 RSV Vaccine (1 - 1-dose 60+ series) RSV Vaccine (1 - 1-dose 60+ series) [facility] Start: 1992 SHINGRIX VACCINE (1 of 2) SHINGRIX VACCINE (1 of 2) [facility] Start: 1987 DIABETES SCREEN DIABETES SCREEN [facility] Start: 1987 Diabetes Screening Diabetes Screening [facility] Start: 1987 Screening for malignant neoplasm of colon [facility] Start: 1961 Urine microalbumin profile [facility] Start: 1960 Hepatitis B surface antibody level LDL Cholesterol [facility] Start: 1960 Screening for malignant neoplasm of colon [facility] Bacteria identified in Urine by Culture Urine Culture [facility] Work Phone: End: 07-18-2025 CT Abdomen and Pelvis W contrast IV CT ABD/PEL W IVCON Radiology Routine Hiatal hernia 1 Occurrences starting 06/18/2024 until 07/18/2025 [facility] Comment on above: 1 Occurrences starting 06/18/2024 until 07/18/2025 End: 12-02-2025 CT Abdomen and Pelvis W contrast IV CT ABD/PEL W IVCON Radiology Routine Nausea 1 Occurrences starting 11/02/2024 until 12/02/2025 [facility] Work Phone: Comment on above: 1 Occurrences starting 11/02/2024 until 12/02/2025 CT Abdomen and Pelvi s W contrast IV CT ABD/PEL W IVCON Radiology Routine Nausea 11/11/2024 1:55 PM EDT [facility] Work Phone: End: 07-18-2025 CT Chest W contrast IV CT CHEST W IVCON Radiology Routine Hiatal hernia 1 Occurrences starting 06/18/2024 until 07/18/2025 [facility] Comment on above: 1 Occurrences starting 06/18/2024 until 07/18/2025 CT Chest W contrast IV CT CHEST W IVCON Radiology Routine Hiatal hernia 06/24/2024 3:12 PM EST [facility] Work Phone: ECG COMPLETE ECG COMPLETE ECG 08/03/2024 3:41 PM EST [facility] End: 06-18-2025 Echocardiography ECHO Cardiology Routine H/O acute myocardial infarction Cardiomyopathy, unspecified type (HCC) Pre-op evaluation 1 Occurrences starting 06/18/2024 until 06/18/2025 [facility] Work Phone: Comment on above: 1 Occurrences starting 06/18/2024 until 06/18/2025 End: 09-08-2025 EGD - THERAPEUTIC, EUS, OR TUBE INTERVENTIONS EGD - THERAPEUTIC, EUS, OR TUBE INTERVENTIONS Endoscopy Routine Dilated pancreatic duct 1 Occurrences starting 09/08/2024 until 09/08/2025 [facility] Work Phone: Comment on above: 1 Occurrences starting 09/08/2024 until 09/08/2025 End: 06-18-2025 EGD DIAGNOSTIC EGD DIAGNOSTIC Endoscopy Routine Hiatal hernia 1 Occurrences starting 06/18/2024 until 06/18/2025 [facility] Work Phone: Comment on above: 1 Occurrences starting 06/18/2024 until 06/18/2025 End: 08-06-2025 EMG(NEURO/NI) EMG(NEURO/NI) EMG Routine Neuropathy 1 Occurrences starting 08/06/2024 until 08/06/2025 [facility] Work Phone: Comment on above: 1 Occurrences starting 08/06/2024 until 08/06/2025 Lipid 1996 panel - S des or Plasma [facility] Work Phone: Lipid 1996 panel - S des or Plasma [facility] Measurement of respiratory function [facility] Methylmalonate measurement [facility] Work Phone: End: 10-03-2025 MR Biliary ducts and Pancreatic duct WO and W contrast IV MRI PANC/MAGNOLIA WO/W IVCON Radiology Routine Abnormal results of liver function studies 1 Occurrences starting 09/03/2024 until 10/03/2025 [facility] Work Phone: Comment on above: 1 Occurrences starting 09/03/2024 until 10/03/2025 End: 10-03-2025 MR Unspecified body region 3D post processing MRI 3D POST PROCESSING Radiology Routine Abnormal results of liver function studies 1 Occurrences starting 09/03/2024 until 10/03/2025 [facility] Comment on above: 1 Occurrences starting 09/03/2024 until 10/03/2025 End: 12-13-2023 MRI 3D POST PROCESSING MRI 3D POST PROCESSING Radiology Routine 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) 1 Occurrences starting 11/13/2022 until 12/13/2023 [facility] Work Phone: Comment on above: 1 Occurrences starting 11/13/2022 until 12/13/2023 End: 12-13-2023 MRI BRAIN W QUANT WO IVCON MRI BRAIN W QUANT WO IVCON Radiology Routine 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) 1 Occurrences starting 11/13/2022 until 12/13/2023 [facility] Work Phone: Comment on above: 1 Occurrences starting 11/13/2022 until 12/13/2023 NEUROMUSCULAR ULTRASOUND/NEUROLOGY NEUROMUSCULAR ULTRASOUND/NEUROLOGY Procedures Routine Ulnar neuropathy of right upper extremity Ordered: 11/03/2024 [facility] Work Phone: Comment on above: Ordered: 11/03/2024 Patient Education [facility] Work Phone: Patient referral [facility] Work Phone: Polysomnography [facility] REFER FOR ADMIT INTERVIEW REFER FOR ADMIT INTERVIEW Procedures Routine Hiatal hernia Epigastric pain Nausea and vomiting, unspecified vomiting type Pre-op exam Ordered: 09/03/2024 [facility] Comment on above: Ordered: 09/03/2024 US Breast limited [facility] US Carotid arteries [facility] End: 08-03-2025 US Carotid arteries - bilateral US CAROTID ARTERIES [facility] V[facility] Lab Routine Carotid bruit, unspecified laterality 1 Occurrences starting 08/03/2024 until 08/03/2025 [facility] Work Phone: Comment on above: 1 Occurrences starting 08/03/2024 until 08/03/2025 End: 12-20-2025 US Carotid arteries - bilateral US CAROTID ARTERIES [facility] V[facility] Lab Routine Carotid bruit, unspecified laterality 1 Occurrences starting 12/20/2024 until 12/20/2025 [facility] Work Phone: Comment on above: 1 Occurrences starting 12/20/2024 until 12/20/2025 [facility] Immunizations Immunization Date Immunization Notes Care Provider Fa cility 12-19-2024 TD(adult) unspecifie d formulation Young VALENCIA Work Phone: [facility] Work Phone: 12-19-2024 tetanus and diphther ia toxoids, adsorbed, preservative free, for adult use (5 Lf of tetanus toxoid and 2 Lf of diphtheria toxoid) Young VALENCIA Work Phone: [facility] 04-27-2024 Seasonal trivalent influenza vaccine, adjuvanted, preservative free Denice Jacobs PA-C Work Phone: [facility] 05-22-2023 influenza, injectabl e, quadrivalent, preservative free Dr. Chema Perry Work Phone: [facility] 05-22-2023 influenza virus vacc ine, unspecified formulation Laisha Lizarraga APRN.RECEPTION CENTRE MANAGER Work Phone: [facility] 05-20-2022 influenza (aIIV4) vaccine, age 65+ yr, quadrivalent, PF (FLUAD QUAD) Denice Jacobs PA-C Work Phone: [facility] 05-20-2022 influenza virus vacc ine, unspecified formulation Laisha Lizarraga APRN.CNP Work Phone: [facility] 05-18-[address] Arun Ramos Work Phone: [facility] 05-18-2021 influenza-bonnie H5 v irus vaccine, unspecified formulation Denice Queener PA-C Work Phone: [facility] 04-10-2021 influenza, injectabl e, quadrivalent, contains preservative Denice Houstoner PA-C Work Phone: [facility] 02-17-2021 pneumococcal polysaccharide vaccine, 23 valent Denice Houstoner PA-C Work Phone: [facility] 02-17-[address] Arun Ramos Work Phone: [facility] Work Phone: 02-17-2021 pneumococcal vaccine , unspecified formulation Dr. Arun Ramos Work Phone: [facility] 10-28-2020 COVID-19 vaccine, ag e 12+ yr (PFIZER-BIONTECH - PURPLE TOP) Laisha Lizarraga APRN.RECEPTION CENTRE MANAGER Work Phone: [facility] 10-07-2020 COVID-19 vaccine, ag e 12+ yr (PFIZER-BIONTECH - PURPLE TOP) Laisha Lizarraga APRN.RECEPTION CENTRE MANAGER Work Phone: [facility] Work Phone: 05-10-2020 influenza virus vacc ine, unspecified formulation Denice Houstoner PA-C Work Phone: [facility] 07-13-2019 zoster vaccine recombinant Denice [employer] PA-C Work Phone: [facility] 05-13-2019 influenza virus vacc ine, unspecified formulation Denice Queener PA-C Work Phone: [facility] 05-13-2019 influenza, high dose seasonal, preservative-free Denice Houstoner PA-C Work Phone: [facility] 05-13-2019 zoster vaccine recombinant Denice Houstoner PA-C Work Phone: [facility] 01-05-2019 tetanus toxoid, redu long diphtheria toxoid, and acellular pertussis vaccine, adsorbed Denice Houstoner PA-C Work Phone: [facility] 06-24-2018 pneumococcal polysaccharide vaccine, 23 valent Denice Houstoner PA-C Work Phone: [facility] 05-21-2018 influenza virus vacc ine, unspecified formulation Denice Queener PA-C Work Phone: [facility] 05-21-2018 Seasonal trivalent influenza vaccine, adjuvanted, preservative free Denice Houstoner PA-C Work Phone: [facility] 05-18-2018 influenza virus vacc ine, unspecified formulation Denice Queener PA-C Work Phone: [facility] 05-31-2017 influenza virus vacc ine, unspecified formulation Denice Queener PA-C Work Phone: [facility] 05-31-2017 influenza, high dose seasonal, preservative-free Denice Queener PA-C Work Phone: [facility] 05-31-2017 pneumococcal conjuga te vaccine, 13 valent Denice Queener PA-C Work Phone: [facility] 05-01-2016 influenza virus vacc ine, unspecified formulation Denice Queener PA-C Work Phone: [facility] 05-02-2015 influenza virus vacc ine, unspecified formulation Denice Queener PA-C Work Phone: [facility] 10-31-2014 pneumococcal conjuga te vaccine, 13 valent Denice Queener PA-C Work Phone: [facility] 05-13-2014 influenza virus vacc ine, unspecified formulation Denice Queener PA-C Work Phone: [facility] 05-13-2014 influenza, seasonal, injectable, preservative free Denice Queener PA-C Work Phone: [facility] 05-27-2013 influenza virus vacc ine, unspecified formulation Denice Queener PA-C Work Phone: [facility] 05-16-2011 influenza virus vacc ine, unspecified formulation Denice Queener PA-C Work Phone: [facility] 05-16-2011 influenza, seasonal, injectable, preservative free Denice Queener PA-C Work Phone: [facility] 06-18-2010 influenza virus vacc ine, unspecified formulation Denice Houstoner PA-C Work Phone: [facility] 06-18-2010 influenza, seasonal, injectable, preservative free Denice Houstoner PA-C Work Phone: [facility] 03-22-2010 pneumococcal polysaccharide vaccine, 23 valent Denice VALENCIA-C Work Phone: [facility] 03-22-2010 tetanus and diphther ia toxoids, adsorbed, preservative free, for adult use (5 Lf of tetanus toxoid and 2 Lf of diphtheria toxoid) Denice Jacobs PA-C Work Phone: [facility] 03-22-2010 tetanus toxoid, redu long diphtheria toxoid, and acellular pertussis vaccine, adsorbed Denice Jacobs PA-C Work Phone: [facility] 06-06-2009 influenza virus vacc ine, unspecified formulation Denice Houstoner PA-C Work Phone: [facility] 06-06-2009 influenza, seasonal, injectable, preservative free Denice Houstoner PA-C Work Phone: [facility] Payers Date Payer Category Payer Self-pay [id number] 2019 Unknown [id number] 2015 Unknown [id number] 2014 Private Health Insurance [facility] CHO[employer] [id number] 2014-Present [phone] [address] [address] [place] [address] PPO [id number] 2014 Private Health Insurance [id number] .[id number] 2007 Medicare MEDICARE MEDICAR E A AND B [id number] 2007-Present [phone] [address] [address] [place] [address] Medicare [id number] .[id number] 2007 Medicare [id number] .[id number] 2007 Medicare [id number] Medicare [id number] Medicare MEDICARE PART A B [id number] Unknown [id number] 2.840.1.966804.3.579 .2.462 Unknown [id number] 2.840.1.167780.3.579 .2.462 Unknown [id number] 2.840.1.997247.3.579 .2.462 Unknown [id number] 2.840.1.526787.3.579 .2.462 Unknown [id number] 2.840.1.438348.3.579 .2.462 Unknown [id number] 2.840.1.884871.3.579 .2.462 Unknown [id number] 2.840.1.279695.3.579 .2.462 Unknown [id number] 2.840.1.161107.3.579 .2.462 Unknown [id number] 2.840.1.822310.3.579 .2.462 Unknown [id number] 2.840.1.226852.3.579 .2.462 Unknown [id number] 2.840.1.159998.3.579 .2.462 Unknown [id number] 2.840.1.548111.3.579 .2.462 Unknown [id number] 2.840.1.043178.3.579 .2.462 Unknown [id number] 2.840.1.623478.3.579 .2.462 Unknown [id number] 2.840.1.887826.3.579 .2.462 Unknown [id number] 2.840.1.020710.3.579 .2.462 Unknown [id number] 2.840.1.323993.3.579 .2.462 Unknown [id number] 2.840.1.179419.3.579 .2.462 Unknown [id number] 2.840.1.192560.3.579 .2.462 Unknown [id number] 2.840.1.817955.3.579 .2.462 Unknown [id number] 2.840.1.204421.3.579 .2.462 Unknown [id number] 2.840.1.572734.3.579 .2.462 Unknown [id number] 2.840.1.500850.3.579 .2.462 Unknown [id number] 2.840.1.879671.3.579 .2.462 Unknown [id number] 2.840.1.379553.3.579 .2.462 Unknown [id number] 2.840.1.082225.3.579 .2.462 Unknown [id number] 2.840.1.779217.3.579 .2.462 Unknown [id number] 2.840.1.357603.3.579 .2.462 Unknown [id number] 2.16.840.1.702932.3.579 .2.462 Unknown [id number] 2.16.840.1.077314.3.579 .2.462 Unknown [id number] 2.16.840.1.535566.3.579 .2.462 Unknown [id number] 2.16.840.1.516763.3.579 .2.462 Unknown [id number] 2.840.1.771346.3.579 .2.462 Social History Date Type Detail Facility Start: 10-25-2020 End: 07-25-2022 Tobacco smoking status NHIS Never smoked tobacco [facility] Start: 10-25-2020 End: 07-25-2022 Tobacco use and exposure Smokeless tobacco non-user [facility] Start: 11-13-2021 End: 09-13-2024 Alcohol intake Current drinker of alcohol (finding) [facility] Start: 10-25-2020 History SDOH Alcohol Comment Weekly 1-2 drinks [facility] Start: 1940 Sex Assigned At Female [facility] Start: 11-03-2021 End: 04-11-2022 Exposure to SARS-CoV-2 (event) Not sure [facility] Start: 11-07-2021 End: 11-12-2023 Tobacco smoking status NHIS Unknown if ever smoked [facility] Start: 10-07-2020 Spouse/ Signif icant Other [facility] Start: 03-14-2023 End: 11-16-2024 History of Social function [facility] Start: 03-14-2023 End: 11-16-2024 Tobacco use panel [facility] Adult Depression Screening Assessment 0 [facility] Start: 08-08-2020 Gender identity Identifies as female gender (finding) [facility] Start: 08-08-2020 Sexual orientation Heterosexual (rosa owen) [facility] Start: 09-14-2024 End: 12-23-2024 Alcoholic beverage intake Ex-drinker (finding) [facility] Has the electric, [employer], oil, or water company threatened to shut off services in your home in past 12Mo No [facility] Work Phone: (I/We) worried wheth er (my/our) food would run out before (I/we) got money to buy more. Never true [facility] Start: 10-29-2024 End: 11-15-2024 Sex Female (finding) [facility] Functional Status Date Assessment Result Facility 11-17-2024 Are you deaf, or do you have serious difficulty hearing No 11/17/2024 12:03 PM Merlene Ojeda, MAN No [facility] 11-17-2024 Are you blind, or do you have serious difficulty seeing, even when wearing glasses No 11/17/2024 12:03 PM Merlene Ojeda, MAN No [facility] 11-17-2024 Do you have serious difficulty walking or climbing stairs No 11/17/2024 12:03 PM Merlene Ojeda, MAN No [facility] 11-17-2024 Do you have difficul ty dressing or bathing No 11/17/2024 12:03 PM Merlene Ojeda, MAN No [facility] 11-17-2024 Because of a physica l, mental, or emotional condition, do you have difficulty doing errands alone such as visiting a physician's office or shopping No 11/17/2024 12:03 PM Merlene Ojeda, MAN No [facility] 10-08-2021 Functional status Chair [facility] Work Phone: 10-02-2021 Functional status Activity Abili ty Unable to Assess [facility] Work Phone: 09-28-2021 Functional status Patient Activity Chair [facility] Work Phone: 09-04-2021 Functional status Bedside Commode [facility] Work Phone: Mental Status Date Assessment Result Facility 11-17-2024 Because of a physica l, mental, or emotional condition, do you have serious difficulty concentrating, remembering, or making decisions No 11/17/2024 12:03 PM Merlene Ojeda, MAN No [facility] 02-15-2022 Cognitive function Awake;Alert;A ppropriate; Follows Commands [facility] Work Phone: 10-08-2021 Cognitive function Appropriate;Cooperativ e [facility] Work Phone: 10-04-2021 Cognitive function Voice/Name [facility] Work Phone: 09-04-2021 Cognitive function Fearful [facility] Work Phone: Clinical Notes 11-13-2021 to 01-05-2025 Telephone Encounter - Sourav Marcial MD - 12/24/2024 2:58 PM EDTTelephone Encounter - Sourav Marcial MD - 12/24/2024 2:58 PM EDTPatient InstructionsPatient InstructionsPatient Instructions Note Date & Type Note [facility] 01-05-2025 Note [facility] 12-24-2024 Telephone encounter Note Yes, I will switch you back to furosemide [address] of torsemide. [facility] 12-24-2024 Miscellaneous Notes Yes, I will switch you back to furosemide [address] of torsemide. SHELIA; 12/20/2024- Dung The patient had nuclear SPECT scan in May 2023 which did not show ischemia patient has preserved LV systolic function on the recent 2D echocardiogram. The patient was advised to torsemide 20 mg daily and potassium chloride 20 mEq daily because of her 2+ tricuspid regurgitation and moderate pulmonary artery hypertension which might have been due to her pulmonary embolus. FOV: 12/20/2025- ALBERT Guadalupe Forward to Dr. Marcial. Please advise. documented in this encounter [facility] 12-24-2024 Telephone encounter Note SHELIA; 12/20/2024- Dung The patient had nuclear SPECT scan in May 2023 which did not show ischemia patient has preserved LV systolic function on the recent 2D echocardiogram. The patient was advised to torsemide 20 mg daily and potassium chloride 20 mEq daily because of her 2+ tricuspid regurgitation and moderate pulmonary artery hypertension which might have been due to her pulmonary embolus. FOV: 12/20/2025- ALBERT Guadalupe Forward to Dr. Marcial. Please advise. [facility] 12-23-2024 Instructions Laisha Lizarraga APRN.ALBERT - 12/23/2024 3:18 PM EDT Continue to participate in physical activity and be cogntiively and socially engaged and active 2. Please schedule Cognitive/Speech Therapy sessions- by calling [phone]. I know there are therapists in the [place] area 3. Can consider getting back into OT later if you need a refresher 4. Can discuss with Dr. Logan re: potentially increasing the gabapentin dose for the neuropathy / RLS For now, I will increase this to 200mg daily. I would like Dr. Logan to later consider taking over refills of this medication. 5. Consider asking the Quantity Surveyor about your R eyelid ptosis, I am not sure that there is a clear neurological cause for this. Follow up in ~3 months documented in this encounter [facility] 12-23-2024 History of Presen t illness Narrative Images from the original note were not included. Lauren Alcaraz 1940 [address] [facility] [address] [facility] [id number] December 23, 2024 [facility] FOLLOW-UP NOTE Accompanied by: spouse Delroy MERCY Lauren Alcaraz is a pleasant 84 year old female seen today for a follow up visit. 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 CSF AD biomarkers negative. 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) Gait instability (R29.6) Multiple falls (R53.81) Physical deconditioning (F32.A) Depression, unspecified depression type (F41.9) Anxiety (R42) Dizziness (R26.89) Imbalance (M41.20) Idiopathic scoliosis and kyphoscoliosis (R29.6) Multiple falls (R20.2) Paresthesia of both feet Patient was last seen on 10/13/24, at which time: -- Lauren saw Gen Neuro for neuropathy, and had EMG- showing old L5 lesion and a R ulnar neuropathy -- still bothered by numbness/tingling in bilateral feet- on GBP daily for this -- had lap paraesophageal hernia repair + choleystecomy -- contiues to enjoy PT -- had a few episodes intermittently of lightheadedness/clamminess/presy ncope- she felt it was BG related Previous plan included: I will talk w/ my colleagues re: what would be best to help w/ the forward neck curvature, I.e.- PT for cervical spine, vs other . Also ask your home dolphin trainer about a device for this as well. 2. Meet w/ Denice re: EMG results and next steps 3. Continue being active, healthy, and driven-- but careful at the same time! 4. We may consider Occupational Therapy for help w/ fine motor abiltiies and writing - I will look into any NeuroPT/OT that may be closer to you Follow up in ~3-6 mo Today, Lauren and her spouse returns for a routine follow up visit. She did see Luh Dean in the Spine Dept and felt that this was a very helpful visit; Is wearing a soft cervical collar-- which she is wearing today- but she feels that it's too short-- she would like to get a larger one They will be traveling for a week soon- and she would like to try taking 1/2 tablet of torsemide given that the first dose of 20mg really hit her hard and she was urinating multiple times throughout the night- large volumes Lauren's cognitive symptoims initially presented with episodes of disorientation and confusion, including wandering and not knowing her location. These episodes have significantly improved, and she no longer experiences disorientation at home. She remains keenly aware of her medical records and results. She expresses interest in cognitive therapy to further improve her cognitive function. She recently completed occupational therapy, which she found beneficial in improving her hand strength and learning techniques for writing and buttoning shirts. She expresses satisfaction with her occupational therapist and plans to return if needed. She has been experiencing worsening glaucoma, affecting her vision. She reports squinting and difficulty seeing, even with the use of eye drops twice daily. She plans to see her activities attendant after returning from vacation and inquires about potential surgical options to address her glaucoma. Other interval history: Falls: negative Sleep: described as normal, feels rested upon waking Mood: good ADL's requires assistance with the following ADL's: using household appliances, taking medications, grocery shopping, house cleaning, driving, and finances Driving?: No FAST Functional Assessment Staging Tool 4. Decreased ability to perform complex tasks (e.e.g planning dinner for guests; handling finances; marketing) Vital Signs: BP 121/56 Pulse 70 LMP (LMP Unknown) Current Outpatient Medications on File Prior to Visit Medication Sig torsemide (DEMADEX) 20 mg tablet Take 1 tablet by mouth once daily. gabapentin (NEURONTIN) 100 mg capsule Take 1 capsule by mouth once daily. dorzolamide-timolol (COSOPT) 22.3-6.8 mg/mL ophthalmic solution Use 1 Drop in both eyes two times a day. traMADol 25 mg tablet Take 25 mg by mouth every 6 hours as needed. pantoprazole DR (PROTONIX) 40 mg tablet Take 1 tablet by mouth once daily. OXYGEN, HOME THERAPY, Inhale 2 L/min as instructed as directed. With naps and at bedtime casanthranol/docusate sodium (DOCUSATE SODIUM WITH LAXATIVE ORAL) Take 1 tablet by mouth every other day. potassium chloride ER (KLOR-CON) 20 mEq tablet Take 1 tablet by mouth once daily. latanoprost (XALATAN) 0.005 % ophthalmic solution Use 1 Drop in both eyes daily at bedtime. d-mannose 500 mg capsule Take 500 mg by mouth once daily. donepezil (ARICEPT) 10 mg tablet Take 1 tablet by mouth daily with breakfast. famotidine (PEPCID) 10 mg tablet Take 10 mg by mouth twice daily. DODEX 1,000 mcg/mL Inject 1,000 mcg intramuscularly once every month. Vitamin [id number] ammonium lactate (LAC-HYDRIN) 12 % lotion MULTIVITAMIN ORAL Take 1 tablet by mouth once daily. albuterol (PROVENTIL) 2.5 mg /3 mL (0.083 %) nebulizer solution Use 2.5 mg via nebulizer as needed. Lactobacillus acidophilus (PROBIOTIC) 10 billion cell cap Take 1 capsule by mouth once daily. pramipexole (MIRAPEX) 0.5 mg tablet Take 0.5 mg by mouth two times a day. vortioxetine (TRINTELLIX) 20 mg tablet Take 20 mg by mouth once daily. atorvastatin (LIPITOR) 40 mg tablet Take 40 mg by mouth once daily. ELIQUIS 5 mg tab(s) Take 5 mg by mouth two times a day. BID levothyroxine (SYNTHROID) 50 mcg tablet Take 50 mcg by mouth once daily. memantine (NAMENDA) 10 mg tablet Take 10 mg by mouth two times a day. MYRBETRIQ 50 mg Tb24 Take 50 mg by mouth once daily. lacosamide (VIMPAT) 100 mg tab Take 1 [...] facility-administered medications on file prior to visit. General Medical Exam: General: Well-nourished appearing, NAD. [...] appropriate Hallucinations: none Judgment: intact Insight: good Neurological: - CNII: Pupils equal and reactive. - CNIII/CNIV/CNVI: EOMI, Mild ptosis noted on R - CNXII: Tongue midline. Shoulder shrug strong/symmetrical Motor - Strength: 5/5 strength in all 4 extrem - Arms: 5/5 bilat - Ankle Dorisflexion: Left: 5/5, Right: 5/5 - Ankle Plantarflexion: Left: 5/5, Right: 5/5 - Reflexes: - Lower Extremities: - Patella: Left: 2+, Right: 2+ - Sensation: Decreased sensation in toes. - Coordination: Finger tapping intact. 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 Please schedule Cognitive/Speech Therapy sessions- by calling [phone]. I know there are therapists in the [place] area 3. Can consider getting back into OT later if you need a refresher 4. Can discuss with Dr. Logan re: potentially increasing the gabapentin dose for the neuropathy / RLS For now, I will increase this to 200mg daily. I would like Dr. Logan to later consider taking over refills of this medication. 5. Consider asking the Quantity Surveyor about your R eyelid ptosis, I am not sure that there is a clear neurological cause for this. Follow up in ~3 months I spent a total of 40 minutes on the date of service which included [id number] patient care and counseling and educating the patient/spouse. Laisha Lizarraga, MSN, LIDDER-C, CNRN CC: 1. No primary care provider on file., (fax) None documented in this encounter [facility] 12-23-2024 Note [facility] 12-20-2024 Instructions Sourav Marcial MD - 12/20/2024 2:16 PM EDT If you have any questions about your visit today, please call our office and my staff will forward your message to me. I will get back to you as soon as possible. If you receive a survey in regards to your visit today, we encourage you to provide feedback so we may continue to provide you with the best care possible. Edema What is edema? Edema is swelling that is caused by fluid trapped in your body's tissues. Edema happens most often in the feet, ankles, and legs, but can affect other parts of the body, such as the face, hands, and abdomen. It can also involve the entire body. What causes edema? Edema has many possible causes: Edema can occur as a result of gravity, especially from sitting or standing in one place for too long. Water naturally gets pulled down into your legs and feet. It can happen from a weakening in the valves of the veins in the legs (a condition called venous insufficiency). This problem makes it hard for the veins to push blood back up to the heart, and leads to varicose veins and a buildup of fluid in the legs. Certain diseases -- such as congestive heart failure and lung, liver, kidney, and thyroid diseases -- can cause edema or make it worse. Some drugs, such as medications that you are taking for your blood pressure or to control pain, may cause or worsen edema. An allergic reaction, severe inflammation, severino, trauma, clot(s), or poor nutrition can also cause edema. Too much salt from your diet can make edema worse. Being can cause edema in the legs as the uterus puts pressure on the blood vessels in the lower trunk of the body. What are the symptoms of edema? Signs that you might have edema include: The affected area is swollen. The skin over the swollen area might look stretched and shiny. Pushing in gently on the swollen area with your finger for at least 5 seconds and then removing your finger will leave a dimple in the skin. You may have trouble walking if your legs are swollen. You may be coughing or have trouble breathing if you have edema in the lungs. Your doctor will ask you questions, conduct a full exam, and might order tests to determine why you have edema. How is edema treated? Edema can be temporary or permanent, depending on its cause. Edema is treated according to the condition that is causing it. For example, if edema is caused by lung disease, such as emphysema or chronic bronchitis, quitting smoking would be advised if the patient smokes. For patients with chronic heart failure, treating coronary artery disease; monitoring weight, fluid, and salt intake; and cutting down on excess alcohol would be advised. If the cause is related to a medication, stopping the medication will cause the swelling to resolve. In addition to treating the underlying diseases, there are a few other steps you can take to keep fluid from building up in your body: Put a pillow under your legs when you are lying down or sitting for prolonged periods. (Keep your legs elevated above the level of your heart.) Do not sit or stand for long periods of time without moving. Wear support stockings, which put pressure on your legs and keep fluids from collecting in your legs and ankles. These stockings can be purchased at most drugstores. Ask your doctor about limiting your salt intake. Follow your doctor's directions for taking prescription medications. Your doctor might want you to take a diuretic (commonly called a water pill), which helps your body get rid of excess fluid. Other important tips: Protect any swollen areas from additional pressure, injury, and extreme temperatures. Injury to the skin over swollen areas takes longer to heal and is more likely to become infected. Call your doctor immediately if you experience any pain, redness, or heat in a swollen area; have an open sore; or experience shortness of breath or swelling of only one limb. documented in this encounter [facility] 12-20-2024 History of Presen t illness Narrative Images from the original note were not included. [facility] [place] [facility] Department of Cardiovascular Medicine SECTION OF REGIONAL CARDIOLOGY [facility] December 21, 2023 OUTPATIENT VISIT TYPE Established Patient presents for follow-up evaluation of coronary artery disease, Hyperlipidemia, and Hypertension. HISTORY OF PRESENT ILLNESS: Ms. 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 She was last seen on 08/03/24 for pre-op evaluation prior to elective repair of hiatal hernia. She is s/p hiatal hernia repair and cholecystectomy in Sep 2024. She says is doing okay overall following surgery. She reports being unsteady but otherwise has no symptoms of chest pain with her limited exercise activities. She had a stress nuclear scan in 2022 which did not show any ischemia and her LV function was preserved with ejection fraction of up to 89%. She reports lung pain with breathing due to kyphoscoliosis. Patient has mild exertional shortness of breath. Dizziness - No Palpitations - No Leg swelling - YES Fatigue - No Snoring - No Sleep apnea - No Patient follows a low-sodium diet. Patient drinks no cups of coffee or caffeine containing beverages per day Patient does not smoke tobacco products. Patient drinks rare small amount of alcohol periodically Patient denies recreational drug use / abuse. Social History Tobacco Use Smoking status: Never Smokeless tobacco: Never Vaping Use Vaping status: Never Used Substance Use Topics Alcohol use: Not Currently Drug use: Never FAMILY HISTORY Problem Relation Age of Onset No Ocular Disease Mother Stroke Mother Arthritis Mother No Ocular Disease Father Heart Attack Father 40 Hypertension Father Alcohol abuse Father other (oth) Sister anemia Anesthesia Problems No Family History PAST MEDICAL HISTORY Diagnosis Date Arthritis Asthma (HCC) 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 Back pain Cancer (HCC) Chronic pain Complex partial seizures (HCC) Dementia (HCC) Depression DVT (deep venous thrombosis) (HCC) Dysphagia Frequent falls GERD (gastroesophageal reflux disease) Glaucoma suspect of both eyes Heart disease History of heart attack History of transient ischemic attack (TIA) Hypercholesterolemia Hypertension Low iron Presenile dementia, uncomplicated (HCC) Pseudophakia Pulmonary HTN (HCC) Restless leg syndrome Seizure (HCC) Thyroid disease TIA (transient ischemic attack) Tricuspid regurgitation PAST SURGICAL HISTORY Procedure Laterality Date CC CORONARY STENT ~1989 PAST SURGICAL HISTORY OF Ablation T 11 PAST SURGICAL HISTORY OF hernia surgery PAST SURGICAL HISTORY OF hammer toe correction PAST SURGICAL HISTORY OF lumbar laminectomy PAST SURGICAL HISTORY OF carpal tunnel release PAST SURGICAL HISTORY OF tonsillectomy and adenoidectomy PAST SURGICAL HISTORY OF lumpectomy of left breast PAST SURGICAL HISTORY OF cardiac catheterization PAST SURGICAL HISTORY OF EGD PAST SURGICAL HISTORY OF colonoscopy PAST SURGICAL HISTORY OF ventral hernia repair PAST SURGICAL HISTORY OF cataract surgery PAST SURGICAL HISTORY OF appendectomy PAST SURGICAL HISTORY OF kyphoplasty REMV CATARACT EXTRACAP,INSERT LENS Bilateral REVIEW OF SYSTEMS: SYSTEMIC: No fever, chills, or change in weight or appetite HEENT: No recent change in vision or hearing. Respiratory: No hemoptysis, cough. CARDIOVASCULAR: See HPI. GI: No recent nausea, vomiting or diarrhea. : No recent hematuria or dysuria. SKIN: No recent itching or eruption. PSYCH: No recent active anxiety or depression. HEMATOLOGY/ONCOLOGY: No recent diagnosis of bleeding or cancer. ENDOCRINE: No recent polyuria or heat intolerance. NEURO: No recent TIA, stroke or seizures. MSK / RHEUMATOLOGY: No recent active connective tissue disease. Rest of the review of system is unremarkable. ALLERGIES Allergen Reactions Propoxyphene N-Acet* Other: See Comments hallucinations Adhesive Tape-Silic* Unknown Other reaction(s): Other (comments) Not sure which type of tape but red skin. Doxycycline Vomiting Lamictal [Lamotrigi* Swelling Lips swelling Latex Rash Moxifloxacin Mental Status Change Percocet [Oxycodone* Mental Status Change Propoxyphene Mental Status Change, Other: See Comments Hallucinations Includes Darvocet Zolpidem Mental Status Change Adhesive Other: See Comments Not sure which type of tape but red skin. Diclofenac Sodium Other: See Comments Topical gel resulted in hand swelling. Oxycodone Mental Status Change CURRENT MEDICATIONS: dorzolamide-timolol (COSOPT) 22.3-6.8 mg/mL ophthalmic solution Use 1 Drop in both eyes two times a day. traMADol 25 mg tablet Take 25 mg by mouth every 6 hours as needed. pantoprazole DR (PROTONIX) 40 mg tablet Take 1 tablet by mouth once daily. OXYGEN, HOME THERAPY, Inhale 2 L/min as instructed as directed. With naps and at bedtime casanthranol/docusate sodium (DOCUSATE SODIUM WITH LAXATIVE ORAL) Take 1 tablet by mouth every other day. potassium chloride ER (KLOR-CON) 20 mEq tablet Take 1 tablet by mouth once daily. latanoprost (XALATAN) 0.005 % ophthalmic solution Use 1 Drop in both eyes daily at bedtime. d-mannose 500 mg capsule Take 500 mg by mouth once daily. donepezil (ARICEPT) 10 mg tablet Take 1 tablet by mouth daily with breakfast. famotidine (PEPCID) 10 mg tablet Take 10 mg by mouth twice daily. DODEX 1,000 mcg/mL Inject 1,000 mcg intramuscularly once every month. Vitamin [id number] ammonium lactate (LAC-HYDRIN) 12 % lotion MULTIVITAMIN ORAL Take 1 tablet by mouth once daily. albuterol (PROVENTIL) 2.5 mg /3 mL (0.083 %) nebulizer solution Use 2.5 mg via nebulizer as needed. Lactobacillus acidophilus (PROBIOTIC) 10 billion cell cap Take 1 capsule by mouth once daily. pramipexole (MIRAPEX) 0.5 mg tablet Take 0.5 mg by mouth two times a day. vortioxetine (TRINTELLIX) 20 mg tablet Take 20 mg by mouth once daily. atorvastatin (LIPITOR) 40 mg tablet Take 40 mg by mouth once daily. ELIQUIS 5 mg tab(s) Take 5 mg by mouth two times a day. BID levothyroxine (SYNTHROID) 50 mcg tablet Take 50 mcg by mouth once daily. memantine (NAMENDA) 10 mg tablet Take 10 mg by mouth two times a day. MYRBETRIQ 50 mg Tb24 Take 50 mg by mouth once daily. nitroglycerin sublingual (NITROQUICK) 0.4 mg SL tablet as needed. aspirin, enteric coated (ASPIRIN, ENTERIC COATED) 81 mg EC tablet Take 81 mg by mouth once daily. tolterodine ER (DETROL LA) 4 mg 24 hr capsule Take 4 mg by mouth once daily. denosumab (PROLIA SUBCUTANEOUS) Inject 1 Dose subcutaneously once every 6 months. Last injection November 2020 torsemide (DEMADEX) 20 mg tablet Take 1 tablet by mouth once daily. gabapentin (NEURONTIN) 100 mg capsule Take 1 capsule by mouth once daily. lacosamide (VIMPAT) 100 mg tab Take 1 tablet by mouth twice daily for 180 days. PHYSICAL EXAM: BP 108/56 Pulse 72 Wt 45.4 kg (100 lb) LMP (LMP Unknown) BMI 23.24 kg/m Last 2 Encounter Wt Readings: Date: Wt: 07/21/2024 44.5 kg (98 lb) 07/16/2024 44.5 kg (98 lb) Awake, alert, oriented times 3. Patient is not in acute respiratory distress. SKIN: No petechial rash or ecchymosis noted. Head : Normocephalic. Face is symmetrical NECK: Supple. No JVD. No carotid bruit. No thyromegaly. ENT: Pharyngeal structures are not crowded and uvula is well visualized. Mallampati 1 LUNGS: Clear to auscultation bilaterally. CARDIAC: Normal S1 and S2, left sternal border with systolic murmur from tricuspid regurgitation. ABDOMEN: Soft, nontender, bowel sounds present. EXTREMITIES: Pre-tibial edema +1-2 bilaterally. No cyanosis or clubbing. PULSES: Peripheral pulses are not palpable in DP and PT arteries. NEURO: Non-focal. Moves all extremities. Musculoskeletal: No significant deformities. Last Labs: I reviewed personally. Sodium Date Value Ref Range Status 11/16/2024 136 136 - 144 mmol/L Final Potassium Date Value Ref Range Status 11/16/2024 4.8 3.7 - 5.1 mmol/L Final Chloride Date Value Ref Range Status 11/16/2024 105 98 - 107 mmol/L Final CO2 Date Value Ref Range Status 11/16/2024 21 (L) 22 - 30 mmol/L Final Glucose Date Value Ref Range Status 11/16/2024 156 (H) 74 - 99 mg/dL Final Comment: The [place] [employer] (ADA) provides guidance for cutoff values for fasting glucose and random glucose. The ADA defines fasting as no caloric intake for at least 8 hours. Fasting plasma glucose results between 100 to 125 mg/dL indicate increased risk for diabetes (prediabetes). Fasting plasma glucose results greater than or equal to 126 mg/dL meet the criteria for diagnosis of diabetes. In the absence of unequivocal hyperglycemia, results should be confirmed by repeat testing. In a patient with classic symptoms of hyperglycemia or hyperglycemic crisis, random plasma glucose results greater than or equal to 200 mg/dL meet the criteria for diagnosis of diabetes. Reference: Standards of Medical Care in Diabetes 2016, [place] [employer]. Diabetes Care. 2016.39(Suppl 1). BUN Date Value Ref Range Status 11/16/2024 13 7 - 21 mg/dL Final Creatinine Date Value Ref Range Status 11/16/2024 0.75 0.58 - 0.96 mg/dL Final Calcium, Total Date Value Ref Range Status 11/16/2024 8.0 (L) 8.5 - 10.2 mg/dL Final Albumin Date Value Ref Range Status 11/16/2024 3.4 (L) 3.9 - 4.9 g/dL Final Protein, Total Date Value Ref Range Status 11/16/2024 6.0 (L) 6.3 - 8.0 g/dL Final AST Date Value Ref Range Status 11/16/2024 25 13 - 35 U/L Final ALT Date Value Ref Range Status 11/16/2024 27 7 - 38 U/L Final Alkaline Phosphatase Date Value Ref Range Status 11/16/2024 148 (H) 34 - 123 U/L Final Bilirubin, Total Date Value Ref Range Status 11/16/2024 0.4 0.2 - 1.3 mg/dL Final Triglycerides, Nonfasting Date Value Ref Range Status 09/14/2024 65 <150 mg/dL Final Comment: <150 mg/dL, Normal 150-199 mg/dL, Borderline high 200-499 mg/dL, High >499 mg/dL, Very high Total Cholesterol, Nonfasting Date Value Ref Range Status 09/14/2024 137 <200 mg/dL Final Comment: <200 mg/dL, Desirable 200-239 mg/dL, Borderline high >239 mg/dL, High HDL Cholesterol, Nonfasting Date Value Ref Range Status 09/14/2024 63 >39 mg/dL Final Comment: 40-59 mg/dL, Acceptable >59 mg/dL, High: Negative risk factor for coronary heart disease <40 mg/dL, Low: Positive risk factor for coronary heart disease LDL Cholesterol Calculated, Nonfasting Date Value Ref Range Status 09/14/2024 61 <100 mg/dL Final Comment: <100 mg/dL, Optimal 100-129 mg/dL, Near optimal/above optimal 130-159 mg/dL, Borderline high 160-189 mg/dL, High >189 mg/dL, Very high Secondary prevention optimal LDL Cholesterol levels are recommended to be < 70 mg/dL INR Date Value Ref Range Status 11/16/2024 1.2 0.9 - 1.3 Final Comment: Vitamin K Antagonist (VKA) Therapeutic Range: INR 2 to 3 (Target INR of 2.5) Note: For patients treated with VKA drugs, such as warfarin, the [place] [employer] 2012 Guideline recommends a therapeutic INR range of 2 to 3 (target INR of 2.5). This recommendation includes high-risk patients with antiphospholipid syndrome with previous arterial or venous thromboembolism, current-generation mechanical or bioprosthetic aortic heart valve replacement. Note: Patients with mechanical aortic valve replacement and additional risk factors for thromboembolic events (atrial fibrillation, previous thromboembolism, LV dysfunction, hypercoagulable conditions) or an older generation mechanical AVR (i.e., ball in-Cage) or any mechanical MVR should have a INR therapeutic range of 2.5 to 3.5 (target INR of 3). Tanja BASILIO, et al. Chest 2012, 141:[id number] Yakov CRABTREE et al. [facility] 2017, 70: [phone] Cardiovascular Testing: I reviewed personally. I have personally reviewed the Electrocardiogram, Chest X-ray, Laboratory Testing Carotid Doppler done on November 26, 2023 shows less than 50% stenosis with mild plaque disease [facility] nuclear SPECT scan done on May 2023 also shows normal LV function with no evidence of ischemia ejection fraction of 89%. However, it was done with 69% of maximal Peritrate heart rate obtained. Echocardiogram done in [facility] on 09 July 2024 shows normal LV function with ejection fraction of 59%, 2+ tricuspid regurgitation with right ventricular systolic pressure of 59 mmHg. 08/03/2024 EKG showed normal sinus rhythm with old inferior wall UT and poor R wave progression with no significant ST-T wave changes IMPRESSION / RECOMMENDATIONS / PLAN: Encounter Diagnosis ICD-10-CM 1. Coronary stent patent Z95.5 2. Mixed hyperlipidemia E78.2 3. Essential hypertension I10 4. Pulmonary HTN (HCC) I27.20 5. Nonrheumatic tricuspid valve regurgitation I36.1 6. Carotid bruit, unspecified laterality R09.89 US CAROTID ARTER[facility] 7. Obstructive sleep apnea syndrome G47.33 8. Acquired hypothyroidism E03.9 9. Bilateral leg edema R60.0 10. History of pulmonary embolism Z86.711 11. History of DVT (deep vein thrombosis) Z86.718 12. History of transient ischemic attack (TIA) Z86.73 13. Abnormality of gait R26.9 Coronary artery disease. She has history of stable coronary artery disease status post stent about 20 years ago. She is able to do her activities of daily living at home with no chest tightness or heaviness. The patient had nuclear SPECT scan in May 2023 which did not show ischemia patient has preserved LV systolic function on the recent 2D echocardiogram. The patient was advised to torsemide 20 mg daily and potassium chloride 20 mEq daily because of her 2+ tricuspid regurgitation and moderate pulmonary artery hypertension which might have been due to her pulmonary embolus. She is concerned about her restless leg syndrome, for which I recommended discussion of starting Requip and she will discuss that with her neurosurgeon team also. I advised her to watch for signs and symptoms of bleeding closely. If her blood pressure is elevated in future, she could be started on low-dose of lisinopril 5 mg daily for cardiovascular protection. Patient is counseled at length regarding importance of aggressive risk factor modification including compliance with medication, increased activity/exercise, low cholesterol low fat diet. Sourav Marcial MD, [facility]. Lead Pourer, Dept of Cardiology and Medicine, [facility]. Fur Designer of Ambulatory Cardiology, [facility]. Fur Designer of Cardiac Catheterization laboratory, [facility]. Clinical Asst. channel account manager, [facility] and [facility] [[email or web address]] Staff Monogram Machine Operator, Heart, Vascular [facility] Thoracic [place], [facility]. documented in this encounter [facility] 12-20-2024 Note [facility] 12-19-2024 Note [facility] 12-19-2024 History of Presen t illness Narrative [facility] Subjective Lauren Alcaraz is a 84 year old female. Patient presents with: Abrasion to right forearm x1 day HPI 84-year-old female presents for skin tear to right forearm. Patient states that she bumped into a table last night and scraped her right forearm. She states when she removed the bandage this morning it was still slightly bleeding, so she came in for evaluation. She is on Eliquis. She states bleeding is better now. Last tetanus was in 2019. Patient has no pain in the arm. No other complaint. PAST MEDICAL HISTORY Diagnosis Date Arthritis Asthma (HCC) 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 Back pain Cancer (HCC) Chronic pain Complex partial seizures (HCC) Dementia (HCC) Depression DVT (deep venous thrombosis) (HCC) Dysphagia Frequent falls GERD (gastroesophageal reflux disease) Glaucoma suspect of both eyes Heart disease History of heart attack History of transient ischemic attack (TIA) Hypercholesterolemia Hypertension Low iron Presenile dementia, uncomplicated (HCC) Pseudophakia Pulmonary HTN (HCC) Restless leg syndrome Seizure (HCC) Thyroid disease TIA (transient ischemic attack) Tricuspid regurgitation PAST SURGICAL HISTORY Procedure Laterality Date CC CORONARY STENT ~1989 PAST SURGICAL HISTORY OF Ablation T 11 PAST SURGICAL HISTORY OF hernia surgery PAST SURGICAL HISTORY OF hammer toe correction PAST SURGICAL HISTORY OF lumbar laminectomy PAST SURGICAL HISTORY OF carpal tunnel release PAST SURGICAL HISTORY OF tonsillectomy and adenoidectomy PAST SURGICAL HISTORY OF lumpectomy of left breast PAST SURGICAL HISTORY OF cardiac catheterization PAST SURGICAL HISTORY OF EGD PAST SURGICAL HISTORY OF colonoscopy PAST SURGICAL HISTORY OF ventral hernia repair PAST SURGICAL HISTORY OF cataract surgery PAST SURGICAL HISTORY OF appendectomy PAST SURGICAL HISTORY OF kyphoplasty REMV CATARACT EXTRACAP,INSERT LENS Bilateral ALLERGIES Propoxyphene N-Acetaminophen, Adhesive Tape-Silicones, Doxycycline, Lamictal [Lamotrigine], Latex, Moxifloxacin, Percocet [Oxycodone-Acetaminophen], Propoxyphene, Zolpidem, Adhesive, Diclofenac Sodium, and Oxycodone MEDICATIONS furosemide (LASIX) 20 mg tablet Take 0.5 tablets by mouth every afternoon. As needed dorzolamide-timolol (COSOPT) 22.3-6.8 mg/mL ophthalmic solution Use 1 Drop in both eyes two times a day. traMADol 25 mg tablet Take 25 mg by mouth every 6 hours as needed. pantoprazole DR (PROTONIX) 40 mg tablet Take 1 tablet by mouth once daily. OXYGEN, HOME THERAPY, Inhale 2 L/min as instructed as directed. With naps and at bedtime casanthranol/docusate sodium (DOCUSATE SODIUM WITH LAXATIVE ORAL) Take 1 tablet by mouth every other day. potassium chloride ER (KLOR-CON) 20 mEq tablet Take 1 tablet by mouth once daily. latanoprost (XALATAN) 0.005 % ophthalmic solution Use 1 Drop in both eyes daily at bedtime. d-mannose 500 mg capsule Take 500 mg by mouth once daily. donepezil (ARICEPT) 10 mg tablet Take 1 tablet by mouth daily with breakfast. gabapentin (NEURONTIN) 100 mg capsule Take 100 mg by mouth once daily. famotidine (PEPCID) 10 mg tablet Take 10 mg by mouth twice daily. DODEX 1,000 mcg/mL Inject 1,000 mcg intramuscularly once every month. Vitamin [id number] MULTIVITAMIN ORAL Take 1 tablet by mouth once daily. albuterol (PROVENTIL) 2.5 mg /3 mL (0.083 %) nebulizer solution Use 2.5 mg via nebulizer as needed. Lactobacillus acidophilus (PROBIOTIC) 10 billion cell cap Take 1 capsule by mouth once daily. pramipexole (MIRAPEX) 0.5 mg tablet Take 0.5 mg by mouth two times a day. vortioxetine (TRINTELLIX) 20 mg tablet Take 20 mg by mouth once daily. atorvastatin (LIPITOR) 40 mg tablet Take 40 mg by mouth once daily. ELIQUIS 5 mg tab(s) Take 5 mg by mouth two times a day. BID levothyroxine (SYNTHROID) 50 mcg tablet Take 50 mcg by mouth once daily. memantine (NAMENDA) 10 mg tablet Take 10 mg by mouth two times a day. MYRBETRIQ 50 mg Tb24 Take 50 mg by mouth once daily. nitroglycerin sublingual (NITROQUICK) 0.4 mg SL tablet as needed. aspirin, enteric coated (ASPIRIN, ENTERIC COATED) 81 mg EC tablet Take 81 mg by mouth once daily. tolterodine ER (DETROL LA) 4 mg 24 hr capsule Take 4 mg by mouth once daily. denosumab (PROLIA SUBCUTANEOUS) Inject 1 Dose subcutaneously once every 6 months. Last injection November 2020 ammonium lactate (LAC-HYDRIN) 12 % lotion lacosamide (VIMPAT) 100 mg tab Take 1 tablet by mouth twice daily for 180 days. FAMILY HISTORY Problem Relation Age of Onset No Ocular Disease Mother Stroke Mother Arthritis Mother No Ocular Disease Father Heart Attack Father 40 Hypertension Father Alcohol abuse Father other (oth) Sister anemia Anesthesia Problems No Family History Social History Tobacco Use Smoking status: Never Smokeless tobacco: Never Vaping Use Vaping status: Never Used Substance Use Topics Alcohol use: Not Currently Drug use: Never Review of Systems Constitutional: Negative for chills and fever. Skin: Positive for wound. Objective BP 120/71 Pulse 71 Temp 37.1 C (98.8 F) (Left Tympanic) Resp 16 Wt 46 kg (101 lb 6.6 oz) LMP (LMP Unknown) SpO2 94% BMI 23.57 kg/m Physical Exam Vitals and nursing note reviewed. Constitutional: General: She is not in acute distress. Appearance: Normal appearance. She is not toxic-appearing. Skin: General: Skin is warm and dry. Findings: Laceration present. Comments: approximately 1 cm skin tear to right dorsal forearm. No active bleeding. Small oozing of blood from the area, but appears to be clotting. Normal ROM of the wrist and arm. No tenderness. No foreign body seen. No drainage or fluctuance Neurological: Mental Status: She is alert. {ASSESSMENT/PLAN: 1. Skin tear of right forearm without complication, initial encounter - ICD9: 881.00, ICD10: S51.811A - Wound cleansed with sterile water. Bleeding is under control at this time. - Nonadherent bandage and Robin wrap applied for pressure dressing. - Follow-up with no improvement. Wound care instructions given. - Tetanus updated Diagnosis and treatment plan were discussed and questions were answered to the patient's satisfaction. Pt acknowledged understanding of concepts and follow up plan. Specific signs and symptoms that would indicate the need for higher level of care were discussed in detail warranting prompt ER evaluation. ERIK Marques History and Record Review External record(s) reviewed: prior outpatient record. Differential Diagnoses - Skin tear right arm is more likely for the following reason(s): suggested by H&P Disposition The patient was discharged. Procedures documented in this encounter [facility] 12-16-2024 Telephone encounter Note Called and spoke with patient to inform her that Rx was sent and that going forward she would need to get Lasix from PCP if they would be managing that medication. While on the phone she stated she that she would like Dr. Marcial to continue to manage this medication , that her legs have been more swollen and that she feels that it would be more appropriate that Cardiology manage this. She agreed to move appointment up to 12/20/[address] Marcial to discuss further. Patient denied any other pressing associated symptoms. Sending to Dr. Marcial for FYI only. [facility] 12-16-2024 Miscellaneous Notes Called and spoke with patient to inform her that Rx was sent and that going forward she would need to get Lasix from PCP if they would be managing that medication. While on the phone she stated she that she would like Dr. Marcial to continue to manage this medication , that her legs have been more swollen and that she feels that it would be more appropriate that Cardiology manage this. She agreed to move appointment up to 12/20/[address] Marcial to discuss further. Patient denied any other pressing associated symptoms. Sending to Dr. Marcial for FYI only. Uncertain why PCP would change the dose. In the future she could obtain refills from the PCP Joan Guadalupe APRN.CNP Last Rx sent 08/03/24 with refills to last one year. Spoke with pharmacy staff. They said PCP (non-[facility]) prescribed one month of this medication with no refills which cancelled our Dr Marcial's prescription. Please advise if patient should have PCP continue prescribing. Last OV 08/03/24 Next OV 02/01/25 documented in this encounter [facility] 12-16-2024 Telephone encounter Note Uncertain why PCP would change the dose. In the future she could obtain refills from the PCP Joan Guadalupe APRN.[employer] MANAGER [facility] 12-16-2024 Telephone encounter Note Last Rx sent 08/03/24 with refills to last one year. Spoke with pharmacy staff. They said PCP (non-[facility]) prescribed one month of this medication with no refills which cancelled our Dr Marcial's prescription. Please advise if patient should have PCP continue prescribing. Last OV 08/03/24 Next OV 02/01/25 [facility] 12-09-2024 Note [facility] 12-03-2024 Note [facility] 12-03-2024 History of Presen t illness Narrative Name: Lauren Alcaraz Assessment and Plan: Lauren Alcaraz is a 84 year old female who presents for follow up after Lap primary PEHR, gastropexy, cholecystectomy, IOC, transcystic CBD exploration on 09/20/24. 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 Doing much better, symptoms improved. Having some intermittent diarrhea Follow up in ten months Subjective/Interval Events: as above Objective: BP (!) 106/48 Pulse 60 Ht 139.7 cm (4' 7) Wt 46.9 kg (103 lb 6.3 oz) LMP (LMP Unknown) BMI 24.03 kg/m Intake and Output: No intake/output data recorded. CBC BMP Physical exam: General: Awake, alert and oriented, NAD Neck: supple. Respiratory: Non-labored breathing Cardiac: HDS Abdomen: Soft, non-distended, non-tender, incision C/D/I Anila De Paz MD December 03, 2024 11:31 AM documented in this encounter [facility] 11-26-2024 Note HNO ID: [id number] Author: RADHA STREET OTR/L Service: ? Author Type: Occupational Therapist Type: Progress Notes Filed: 11/26/2024 17:12 Note Text: Episode Visit Count: 5 Therapist That Will Accept/Oversee The Plan Of Care: Mariza Street Start of Care Date: 10/29/24 Onset Date: 10/29/22 Plan of Care Certification Date: 10/29/24 Next Certification Due Date: 12/28/24 Patient Identified by Name and Date of : Yes REHABILITATION AND SPORTS THERAPY OCCUPATIONAL THERAPY DISCONTINUANCE OF CARE PLAN OF CARE UPDATE: Assessment: Lauren Alcaraz is discontinued from Occupational Therapy services due to goal achievement. and maximal benefit.. Patient was seen for 5 visits from Start of Care Date: 10/29/24 to 11/26/2024 and treatment included: Therapeutic exercise, Neuromuscular re-education, Self-residential management, and Patient/Family/Caregiver Education. Goals for Episode of Care: updated 11/26/2024 Patient will complete HEP at Modified [place] level. (MET) Patient will increase bilateral caustic loader and pinches by 5# to improve function for leisure / recreation skills. (PARTIALLY MET) Patient will demonstrate improved neuromuscular coordination as evidenced by improved 9-hole peg test to WNL for age range to improve function for light functional tasks. (PARTIALLY MET) Patient will report improved efficiency with handwriting to at least 60% of normal with adaptive techniques. (MET) Patient will report improved efficiency with buttoning with adaptive techniques PRN (MET) Patient Goals: improve use of hands, buttoning, improve handwriting (writing in cards) SUBJECTIVE: Patient brings in button hook she bought Pain: Pain Pain Level: 0 Post Treatment Pain Post Treatment Pain Level: No Change PROMIS Scales 11/19/2024 11/13/2024 11/05/2024 Higher is Better Self-Eff Symptom - T Score 41 (Average) Self-Eff Symptom - Percentile 18 Upper Extremity - T Score 26 (severe dysfunction) 26 (severe dysfunction) 26 (severe dysfunction) Upper Extremity - Percentile 1 1 1 T-scores: mean of general population = 50. 5 points is clinically meaningfully difference Percentiles provide an indication of how the patient's score ranks in relation to the general population. Higher percentile rankings indicate better function/quality of life. 50th percentile is the average of the general population and indicates half of respondents had a worse score. OBJECTIVE MEASURES WITH LEVEL OF FUNCTION: Hand Strength R Cross [employer] Integrator Position 2 (lbs): 41 lbs L Cross [employer] Integrator Position 2 (lbs): 25 lbs Current Activities Of Daily Living Dressing Upper Body: Modified Independent, Additional Information Dressing Upper Body Comments: improved ease of buttoning with use of button hook Instrumental Activities of Daily Living Additional Instrumental Activities of Daily Living: handwriting assessment: per patient report 80% of normal Functional Performance Test Results 9 Hole Peg Test Right (seconds): 29.9 TREATMENT: Therapeutic Exercise: 1: Recheck Skilled Intervention: Pt educated in progress thus far and plan of care Neuromuscular Re-Education: 1: fine motor coordination: grasp/release multiple small objects, 2: fine motor coordination: nuts and bolts Skilled Intervention: Skilled Intervention: Skilled judgment used to assess appropriate coordination activity. Reviewed and educated patient on additions/changes for home exercise program. Skilled judgment was provided in selection of appropriate interventions. Self-Longterm Management: 1: UB dressing: problem solving use of button hook with large buttons, modified width of button hook with success 2: Educated in use of hook on opposite side of button hook for zipping 3: Encouraged purchasing new glasses (pt lost glasses), vision is important for coordination/handwriting/leisure task Skilled Intervention: Skilled judgment in the selection of proper modification for activity of daily living/home management based on clinical presentation, deficits, and needs. Educated the patient regarding recommendations. Activity progression based on professional judgement. Billing Therapeutic Exercise Treatment Minutes: 18 Neuromuscular Re-Education Treatment Minutes: 10 Self-Care/Home Management Treatment Minutes: 10 Total Session Time (minutes): 38 Session Start Time : 1622 Session Stop Time : [address], OTR/L [facility] 11-26-2024 History of Presen t illness Narrative Images from the original note were not included. Episode Visit Count: 5 Therapist That Will Accept/Oversee The Plan Of Care: Mariza Street Start of Care Date: 10/29/24 Onset Date: 10/29/22 Plan of Care Certification Date: 10/29/24 Next Certification Due Date: 12/28/24 Patient Identified by Name and Date of : Yes REHABILITATION AND SPORTS THERAPY OCCUPATIONAL THERAPY DISCONTINUANCE OF CARE PLAN OF CARE UPDATE: Assessment: Lauren Alcaraz is discontinued from Occupational Therapy services due to goal achievement. and maximal benefit.. Patient was seen for 5 visits from Start of Care Date: 10/29/24 to 11/26/2024 and treatment included: Therapeutic exercise, Neuromuscular re-education, Self-residential management, and Patient/Family/Caregiver Education. Goals for Episode of Care: updated 11/26/2024 Patient will complete HEP at Modified [place] level. (MET) Patient will increase bilateral caustic loader and pinches by 5# to improve function for leisure / recreation skills. (PARTIALLY MET) Patient will demonstrate improved neuromuscular coordination as evidenced by improved 9-hole peg test to WNL for age range to improve function for light functional tasks. (PARTIALLY MET) Patient will report improved efficiency with handwriting to at least 60% of normal with adaptive techniques. (MET) Patient will report improved efficiency with buttoning with adaptive techniques PRN (MET) Patient Goals: improve use of hands, buttoning, improve handwriting (writing in cards) SUBJECTIVE: Patient brings in button hook she bought Pain: Pain Pain Level: 0 Post Treatment Pain Post Treatment Pain Level: No Change PROMIS Scales 11/19/2024 11/13/2024 11/05/2024 Higher is Better Self-Eff Symptom - T Score 41 (Average) Self-Eff Symptom - Percentile 18 Upper Extremity - T Score 26 (severe dysfunction) 26 (severe dysfunction) 26 (severe dysfunction) Upper Extremity - Percentile 1 1 1 T-scores: mean of general population = 50. 5 points is clinically meaningfully difference Percentiles provide an indication of how the patient's score ranks in relation to the general population. Higher percentile rankings indicate better function/quality of life. 50th percentile is the average of the general population and indicates half of respondents had a worse score. OBJECTIVE MEASURES WITH LEVEL OF FUNCTION: Hand Strength R [employer] Integrator Position 2 (lbs): 41 lbs L [employer] Integrator Position 2 (lbs): 25 lbs Current Activities Of Daily Living Dressing Upper Body: Modified Independent, Additional Information Dressing Upper Body Comments: improved ease of buttoning with use of button hook Instrumental Activities of Daily Living Additional Instrumental Activities of Daily Living: handwriting assessment: per patient report 80% of normal Functional Performance Test Results 9 Hole Peg Test Right (seconds): 29.9 TREATMENT: Therapeutic Exercise: 1: Recheck Skilled Intervention: Pt educated in progress thus far and plan of care Neuromuscular Re-Education: 1: fine motor coordination: grasp/release multiple small objects, 2: fine motor coordination: nuts and bolts Skilled Intervention: Skilled Intervention: Skilled judgment used to assess appropriate coordination activity. Reviewed and educated patient on additions/changes for home exercise program. Skilled judgment was provided in selection of appropriate interventions. Self-Longterm Management: 1: UB dressing: problem solving use of button hook with large buttons, modified width of button hook with success 2: Educated in use of hook on opposite side of button hook for zipping 3: Encouraged purchasing new glasses (pt lost glasses), vision is important for coordination/handwriting/leisure task Skilled Intervention: Skilled judgment in the selection of proper modification for activity of daily living/home management based on clinical presentation, deficits, and needs. Educated the patient regarding recommendations. Activity progression based on professional judgement. Billing Therapeutic Exercise Treatment Minutes: 18 Neuromuscular Re-Education Treatment Minutes: 10 Self-Care/Home Management Treatment Minutes: 10 Total Session Time (minutes): 38 Session Start Time : 1622 Session Stop Time : [address] documented in this encounter [facility] 11-20-2024 Note HNO ID: [id number] Author: RADHA STREET OTR/Tori Service: ? Author Type: Occupational Therapist Type: Progress Notes Filed: 11/20/2024 06:14 Note Text: Episode Visit Count: 4 Therapist That Will Accept/Oversee The Plan Of Care: Mariza Street Start of Care Date: 10/29/24 Onset Date: 10/29/22 Plan of Care Certification Date: 10/29/24 Next Certification Due Date: 12/28/24 Patient Identified by Name and Date of : Yes REHABILITATION AND SPORTS THERAPY OCCUPATIONAL THERAPY TREATMENT NOTE ASSESSMENT: Lauren Alcaraz tolerated the session with no issues. She demonstrates all exercises with verbal cues only. Patient able to demonstrate fine motor coordination recommended activities from handout. The patient will continue to benefit from ongoing skilled occupational therapy for reassessment by supervising therapist. PLAN FOR NEXT VISIT: recheck SUBJECTIVE: I was in the hospital for three days Pain: Pain Pain Level: 0 Post Treatment Pain Post Treatment Pain Level: No Change OBJECTIVE MEASURES WITH LEVEL OF FUNCTION: TREATMENT: Therapeutic Exercise: 1: AROM: bilaterally, full fist/extension 2: AROM: bilaterally, digit ad/abduction 3: AROM: bilaterally, opposition 4: red theraputty: removing marbles Skilled Intervention: Correct performance of therapeutic exercises was facilitated with verbal, visual, and tactile cuing., Skilled judgement used in selection of appropriate intervention., Patient was educated in proper exercise technique and purpose for exercises, Provided feedback and encouragement throughout. , and Activity progression based on professional judgement. Neuromuscular Re-Education: 1: Fine motor coordination handout with demonstration Skilled Intervention: Skilled judgment used to assess appropriate coordination activity. Correct performance of exercise/activity was facilitated with verbal and visual cueing. Skilled judgment was provided in selection of appropriate interventions. Provided written instruction for home exercise program to facilitate proper performance and compliance. Billing Therapeutic Exercise Treatment Minutes: 10 Neuromuscular Re-Education Treatment Minutes: 14 Skilled Treatment Time Minutes (timed and untimed codes): 24 Total Session Time (minutes): 24 Session Start Time : 1622 Session Stop Time : 1646 RENALDO Greenwood/Tori [facility] 11-20-2024 History of Presen t illness Narrative Episode Visit Count: 4 Therapist That Will Accept/Oversee The Plan Of Care: Mariza Street Start of Care Date: 10/29/24 Onset Date: 10/29/22 Plan of Care Certification Date: 10/29/24 Next Certification Due Date: 12/28/24 Patient Identified by Name and Date of : Yes REHABILITATION AND SPORTS THERAPY OCCUPATIONAL THERAPY TREATMENT NOTE ASSESSMENT: Lauren Alcaraz tolerated the session with no issues. She demonstrates all exercises with verbal cues only. Patient able to demonstrate fine motor coordination recommended activities from handout. The patient will continue to benefit from ongoing skilled occupational therapy for reassessment by supervising therapist. PLAN FOR NEXT VISIT: recheck SUBJECTIVE: I was in the hospital for three days Pain: Pain Pain Level: 0 Post Treatment Pain Post Treatment Pain Level: No Change OBJECTIVE MEASURES WITH LEVEL OF FUNCTION: TREATMENT: Therapeutic Exercise: 1: AROM: bilaterally, full fist/extension 2: AROM: bilaterally, digit ad/abduction 3: AROM: bilaterally, opposition 4: red theraputty: removing marbles Skilled Intervention: Correct performance of therapeutic exercises was facilitated with verbal, visual, and tactile cuing., Skilled judgement used in selection of appropriate intervention., Patient was educated in proper exercise technique and purpose for exercises, Provided feedback and encouragement throughout. , and Activity progression based on professional judgement. Neuromuscular Re-Education: 1: Fine motor coordination handout with demonstration Skilled Intervention: Skilled judgment used to assess appropriate coordination activity. Correct performance of exercise/activity was facilitated with verbal and visual cueing. Skilled judgment was provided in selection of appropriate interventions. Provided written instruction for home exercise program to facilitate proper performance and compliance. Billing Therapeutic Exercise Treatment Minutes: 10 Neuromuscular Re-Education Treatment Minutes: 14 Skilled Treatment Time Minutes (timed and untimed codes): 24 Total Session Time (minutes): 24 Session Start Time : 1622 Session Stop Time : 1646 RENALDO Greenwood/Tori documented in this encounter [facility] 11-17-2024 Note [facility] 11-16-2024 Note [facility] 11-16-2024 Note HNO ID: [id number] Author: TRINA SINGH RN Service: ? Author Type: Registered Nurse Type: Nursing Progress Note Filed: 11/16/2024 12:44 Note Text: Pt reports taking eliquis yesterday (11/15/24). Dr. Jim notified. [facility] 11-16-2024 Note [facility] 11-15-2024 Telephone encounter Note Okay to direct admit per Dr. De Paz Admitting contacted Pt notified. Informed that it may take >24 hours for a bed- [facility] will call to notify once a bed becomes available Advised if symptoms get worse come to ED [facility] 11-15-2024 Miscellaneous Notes Okay to direct admit per Dr. De Paz Admitting contacted Pt notified. Informed that it may take >24 hours for a bed- [facility] will call to notify once a bed becomes available Advised if symptoms get worse come to ED Under the direction of Dr. De Paz, Called and spoke with pt and advised to come to [facility] ED Dr. De Paz reviewed CT ABD, PEHR intact,concerns for CBD not emptying. Pt very tearful, wants to feel better. Continues to experience pain, unable to eat or drink without having liquid stool. Notified MD that pt and on their way to ED. Traveling from [place]. documented in this encounter [facility] 11-15-2024 Telephone encounter Note Under the direction of Dr. De Paz, Called and spoke with pt and advised to come to [facility] ED Dr. De Paz reviewed CT ABD, PEHR intact,concerns for CBD not emptying. Pt very tearful, wants to feel better. Continues to experience pain, unable to eat or drink without having liquid stool. Notified MD that pt and on their way to ED. Traveling from [place]. [facility] 11-12-2024 Note HNO ID: [id number] Author: RADHA STREET, OTR/L Service: ? Author Type: Occupational Therapist Type: Progress Notes Filed: 11/12/2024 17:23 Note Text: Episode Visit Count: 3 Therapist That Will Accept/Oversee The Plan Of Care: Mariza Street Start of Care Date: 10/29/24 Onset Date: 10/29/22 Plan of Care Certification Date: 10/29/24 Next Certification Due Date: 12/28/24 Patient Identified by Name and Date of : Yes REHABILITATION AND SPORTS THERAPY OCCUPATIONAL THERAPY TREATMENT NOTE ASSESSMENT: Lauren Alcaraz tolerated the session with no issues. She demonstrates successful buttoning table top and on person with use of button hook. Patient brought in a homemade greeting card demonstrating handwriting techniques learned last session evidenced of good carryover. Difficulty with new learning of hand exercises this day. The patient will continue to benefit from ongoing skilled occupational therapy to progress toward set goals. PLAN FOR NEXT VISIT: hand exercises, caustic loader strengthening SUBJECTIVE: Can we work on buttons today? Patient brings in hand written card. Pain: Pain Pain Level: (painful left rib area) Post Treatment Pain Post Treatment Pain Level: No Change OBJECTIVE MEASURES WITH LEVEL OF FUNCTION: TREATMENT: Therapeutic Exercise: 1: Tendon gliding, bilaterally 2: tapping: bilaterally 3: digit ad/abduction, bilaterally 4: Teach back for HEP Skilled Intervention: Added tapping, opposition, and digit ad/abduction to HEP , Provided verbal, visual, and tactile cues for correct technique, follow through and new learning , Modified activity to adjust for difficulty. , Provided feedback and encouragement throughout. , Provided handout for follow through with HEP. , and Skilled judgement used in selection of appropriate intervention. Self-Longterm Management: 1: activity analysis: buttoning, table top 2: Educated in use of button hook, trialed table top, and on person Skilled Intervention: Demonstrated correct technique for use of button hook , Modified activity to adjust for difficulty. , Provided feedback and encouragement throughout. , Provided handout for follow through with HEP. , and Skilled judgement used in selection of appropriate intervention. Billing Therapeutic Exercise Treatment Minutes: 15 Self-Care/Home Management Treatment Minutes: 25 Skilled Treatment Time Minutes (timed and untimed codes): 40 Total Session Time (minutes): 45 Session Start Time : 1529 Session Stop Time : [address], OTR/L [facility] 11-12-2024 History of Presen t illness Narrative Episode Visit Count: 3 Therapist That Will Accept/Oversee The Plan Of Care: Mariza Street Start of Care Date: 10/29/24 Onset Date: 10/29/22 Plan of Care Certification Date: 10/29/24 Next Certification Due Date: 12/28/24 Patient Identified by Name and Date of : Yes REHABILITATION AND SPORTS THERAPY OCCUPATIONAL THERAPY TREATMENT NOTE ASSESSMENT: Lauren Alcaraz tolerated the session with no issues. She demonstrates successful buttoning table top and on person with use of button hook. Patient brought in a homemade greeting card demonstrating handwriting techniques learned last session evidenced of good carryover. Difficulty with new learning of hand exercises this day. The patient will continue to benefit from ongoing skilled occupational therapy to progress toward set goals. PLAN FOR NEXT VISIT: hand exercises, caustic loader strengthening SUBJECTIVE: Can we work on buttons today? Patient brings in hand written card. Pain: Pain Pain Level: (painful left rib area) Post Treatment Pain Post Treatment Pain Level: No Change OBJECTIVE MEASURES WITH LEVEL OF FUNCTION: TREATMENT: Therapeutic Exercise: 1: Tendon gliding, bilaterally 2: tapping: bilaterally 3: digit ad/abduction, bilaterally 4: Teach back for HEP Skilled Intervention: Added tapping, opposition, and digit ad/abduction to HEP , Provided verbal, visual, and tactile cues for correct technique, follow through and new learning , Modified activity to adjust for difficulty. , Provided feedback and encouragement throughout. , Provided handout for follow through with HEP. , and Skilled judgement used in selection of appropriate intervention. Self-Longterm Management: 1: activity analysis: buttoning, table top 2: Educated in use of button hook, trialed table top, and on person Skilled Intervention: Demonstrated correct technique for use of button hook , Modified activity to adjust for difficulty. , Provided feedback and encouragement throughout. , Provided handout for follow through with HEP. , and Skilled judgement used in selection of appropriate intervention. Billing Therapeutic Exercise Treatment Minutes: 15 Self-Care/Home Management Treatment Minutes: 25 Skilled Treatment Time Minutes (timed and untimed codes): 40 Total Session Time (minutes): 45 Session Start Time : 1530 Session Stop Time : [address] OTR/L documented in this encounter [facility] 11-12-2024 Telephone encounter Note [facility] SPECIALTY CARE COORDINATION TELEPHONE ENCOUNTER Pt contacted the office to get results from her CT scan done at a [facility]ellite facility in [place]. Results are still in process. Pt and informed. [facility] 11-12-2024 Miscellaneous Notes [facility] SPECIAL[facility] CARE COORDINATION TELEPHONE ENCOUNTER Pt contacted the office to get results from her CT scan done at a [facility] facility in [place]. Results are still in process. Pt and informed. documented in this encounter [facility] 11-11-2024 History of Presen t illness Narrative Radiology Service Progress Note DATE OF SERVICE: November 11, 2024 TIME: 2:32 PM PATIENT IDENTITY VERIFICATION COMPLETED USING TWO (2) STANDARD IDENTIFIERS: Name and Date of confirmed by patient verbally. FALL SCREENING: Has the patient had 2 falls in the last year or 1 fall with injury or currently using an Ambulatory Assistive Device (Walker, Cane, Wheelchair, Crutches, etc.)? No PATIENT GENDER DATA: Assigned female at . status: : No status: NO. PATIENT RELEVANT IMPLANT DATA REVIEWED: Yes PATIENT PRESENTS WITH AN IMPLANTABLE OR ATTACHED ENTRY LEVEL SALES CONSULTANT: No ALLERGIES: Reviewed and unchanged CONTRAST ALLERGY: NO. EXAM: CT -CONTRAST INDUCED NEPHROPATHY RISK FACTORS: Patient age > 60 years CREATININE: Creatinine Date Value Ref Range Status 11/08/2024 0.79 0.58 - 0.96 mg/dL Final 09/23/2024 0.81 0.58 - 0.96 mg/dL Final 09/22/2024 0.82 0.58 - 0.96 mg/dL Final Estimated Glomerular Filtration Rate Date Value Ref Range Status 11/08/2024 75 >=60 mL/min/1.73m Final Comment: Estimated Glomerular Filtration Rate (eGFR) is calculated using the 2020 CKD-EPI creatinine equation. This equation utilizes serum creatinine, sex, and age as parameters. The creatinine assay has traceable calibration to isotope dilution-mass spectrometry. Refer to KDIGO guidelines for clinical interpretation. In patients with unstable renal function, e.g. those with acute kidney injury, the eGFR may not accurately reflect actual GFR. P.O.C.T. RESULTS: POC done: Yes, See Lab Tab November 11, 2024 TREATMENT: N/A PERIPHERAL IV DATA: Ambulatory: A peripheral IV was started in the Right antecubital site with a Angio cath: 22 gauge. RADIOLOGY DEPARTMENT: CT; Exam(s) Completed: Abdomen/Pelvis SIGNATURE: RT Kusum(R) PATIENT NAME: Lauren Alcaraz DATE: November 11, 2024 TIME: 2:32 PM documented in this encounter [facility] 11-11-2024 Note [facility] 11-09-2024 Radiology Diagnostic study note [facility] Imaging Services [address] [place] [address] [id number] Chest PA and Lateral MR#: [id number] Acct: [id number] Name: LAUREN ALCARAZ Rep #: [id number] : [id number] F [id number] From: Trinidad Doherty MD PCP: Dr. Chema Perry MD Status: REG CLI Study:Chest PA and Lateral Date of Exam: 11/09/24 Exam# [id number] Ordering Dr: Chema Perry MD EXAM: XR Chest, 2 Views CLINICAL INDICATION: POST OP EDEMA TECHNIQUE: Frontal and lateral views of the chest. COMPARISON: No relevant prior studies available. FINDINGS: LUNGS AND PLEURAL SPACES: Hyperlucent lungs. Flattening of the diaphragm. No consolidation. No pneumothorax. HEART: Unremarkable. No cardiomegaly. MEDIASTINUM: Unremarkable. Normal mediastinal contour. BONES/JOINTS: Unremarkable. No acute fracture. RAD/Chest PA and Lateral IMPRESSION: Suggestion of COPD. Reading Location: [facility] CC: Dr. 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 Author Type: Occupational Therapist Type: Progress Notes Filed: 11/05/2024 17:04 Note Text: Episode Visit Count: 2 Therapist That Will Accept/Oversee The Plan Of Care: Mariza Street Start of Care Date: 10/29/24 Onset Date: 10/29/22 Plan of Care Certification Date: 10/29/24 Next Certification Due Date: 12/28/24 Patient Identified by Name and Date of : Yes REHABILITATION AND SPORTS THERAPY OCCUPATIONAL THERAPY TREATMENT NOTE ASSESSMENT: Lauren Alcaraz tolerated the session with no issues. She demonstrates increased legibility with use of weighted Galagee pen, use of ruler, and without use of glasses. The patient will continue to benefit from ongoing skilled occupational therapy to progress toward set goals. PLAN FOR NEXT VISIT: ulnar nerve glides, hand exercises, how is handwriting? SUBJECTIVE: I am not ready to give up, I want to live to 99 Pt reports ulnar nerve neuropathy on EMG. Pain: Pain Pain Level: 0 Post Treatment Pain Post Treatment Pain Level: No Change OBJECTIVE MEASURES WITH LEVEL OF FUNCTION: TREATMENT: Therapeutic Exercise: 1: Ulnar nerve glides, x3 full Skilled Intervention: Added nerve glides to HEP , Provided verbal and visual cues for correct technique , Demonstrated correct technique for nerve glides and guided patient through each exercise , Provided feedback and encouragement throughout. , Provided handout for follow through with HEP. , and Skilled judgement used in selection of appropriate intervention. Self-Longterm Management: 1: Educated in ulnar nerve anatomy 2: handwrititng: regular ball point pen with caustic loader vs regular ball point pen 3: handwriting: trialed using ruler to maintain straight lines 4: Discussed importance of good base of support for handwriting 5: handwriting: trialed with and without glasses, patient writes larger with glasses on 6: handwriting: cursive vs print, encouraged BIG amplitude Skilled Intervention: Modified activity to adjust for difficulty. , Educated patient as noted. , Facilitated trial of multiple techniques during activity. , Provided ruler, handout for recommended pen for follow through with HEP. , and Skilled judgement used in selection of appropriate intervention. Billing Therapeutic Exercise Treatment Minutes: 10 Self-Care/Home Management Treatment Minutes: 30 Skilled Treatment Time Minutes (timed and untimed codes): 40 Total Session Time (minutes): 43 Session Start Time : 1405 Session Stop Time : 1448 Radha Edisjohn, OTR/L [facility] 11-05-2024 History of Presen t illness Narrative Episode Visit Count: 2 Therapist That Will Accept/Oversee The Plan Of Care: Mariza Street Start of Care Date: 10/29/24 Onset Date: 10/29/22 Plan of Care Certification Date: 10/29/24 Next Certification Due Date: 12/28/24 Patient Identified by Name and Date of : Yes REHABILITATION AND SPORTS THERAPY OCCUPATIONAL THERAPY TREATMENT NOTE ASSESSMENT: Lauren Alcaraz tolerated the session with no issues. She demonstrates increased legibility with use of weighted Galagee pen, use of ruler, and without use of glasses. The patient will continue to benefit from ongoing skilled occupational therapy to progress toward set goals. PLAN FOR NEXT VISIT: ulnar nerve glides, hand exercises, how is handwriting? SUBJECTIVE: I am not ready to give up, I want to live to 99 Pt reports ulnar nerve neuropathy on EMG. Pain: Pain Pain Level: 0 Post Treatment Pain Post Treatment Pain Level: No Change OBJECTIVE MEASURES WITH LEVEL OF FUNCTION: TREATMENT: Therapeutic Exercise: 1: Ulnar nerve glides, x3 full Skilled Intervention: Added nerve glides to HEP , Provided verbal and visual cues for correct technique , Demonstrated correct technique for nerve glides and guided patient through each exercise , Provided feedback and encouragement throughout. , Provided handout for follow through with HEP. , and Skilled judgement used in selection of appropriate intervention. Self-Longterm Management: 1: Educated in ulnar nerve anatomy 2: handwrititng: regular ball point pen with caustic loader vs regular ball point pen 3: handwriting: trialed using ruler to maintain straight lines 4: Discussed importance of good base of support for handwriting 5: handwriting: trialed with and without glasses, patient writes larger with glasses on 6: handwriting: cursive vs print, encouraged BIG amplitude Skilled Intervention: Modified activity to adjust for difficulty. , Educated patient as noted. , Facilitated trial of multiple techniques during activity. , Provided ruler, handout for recommended pen for follow through with HEP. , and Skilled judgement used in selection of appropriate intervention. Billing Therapeutic Exercise Treatment Minutes: 10 Self-Care/Home Management Treatment Minutes: 30 Skilled Treatment Time Minutes (timed and untimed codes): 40 Total Session Time (minutes): 43 Session Start Time : 1405 Session Stop Time : 1448 RENALDO Greenwood/Tori documented in this encounter [facility] 11-03-2024 Instructions Denice Jacobs PA-C - 11/03/2024 3:54 PM EDT Consult to spine Neuromuscular ultrasound of the right ulnar nerve ([phone]) Follow up as needed documented in this encounter [facility] 11-03-2024 Note HNO ID: [id number] Author: MARGAERT LEONARD LPN Service: ? Author Type: LICENSED NURSE Type: Progress Notes Filed: 11/03/2024 16:43 Note Text: [facility] 11-03-2024 Note [facility] 11-03-2024 History of Presen t illness Narrative Images from the original note were not included. [facility] Name: Lauren Alcaraz Age: [age] year old Gender: female Primary Care Provider: Chema Perry MD Assessment/Plan: 11/03/2024 - General Neurology, Denice Jacobs PA-C ASSESSMENT ASSESSMENT/PLAN: 1. Degeneration of intervertebral disc of lumbar region, unspecified whether pain present - ICD9: 722.52, ICD10: M51.369 (primary diagnosis) 2. Left leg paresthesias - ICD9: 782.0, ICD10: R20.2 3. Right leg paresthesias - ICD9: 782.0, ICD10: R20.2 Patient presents for follow-up appointment and to review EMG results. Having chronic paresthesias in the feet for years with some weakness. EMG showing chronic L5 radiculopathy but no signs of neuropathy. Laboratory studies were unremarkable for causes of neuropathy. Has history of multiple lumbar surgeries and has followed with pain management in the past. Has not seen a spinal specialist and would like this done. Will refer to spine for further evaluation as she has tried physical therapy and other pain management applications for discomfort in the past. No signs or symptoms of acute cord compression, no other new symptoms with this. 4. Ulnar neuropathy of right upper extremity - ICD9: 354.2, ICD10: G56.21 EMG of the right upper extremity was obtained due to some paresthesias in the hands as well as difficulty with handwriting. EMG did reveal right ulnar mononeuropathy. Discussed conservative therapy that can be done for this but patient deferring. Would like further testing as indicated in the EMG report for neuromuscular ultrasound. Will place this order and have her call to schedule. Encouraged conservative therapy in the meantime including padding the area around the elbow and continue with occupational therapy. No other new symptoms that would warrant additional workup at this time. Patient agreeable to treatment plan of care at this time, questions were answered. Encouraged her to follow-up as needed. Denice Jacobs PA-C Encounter Diagnosis ICD-10-CM 1. Degeneration of intervertebral disc of lumbar region, unspecified whether pain present M51.369 [facility] 2. Left leg paresthesias R20.2 [facility] TO [facility] 3. Right leg paresthesias R20.2 [facility] TO [facility] 4. Ulnar neuropathy of right upper extremity G56.21 NEUROMUSCULAR ULTRASOUND/NEUROLOGY Return in about 6 months (around 05/06/2025). Chart, labs,and relevant images reviewed. Chief Complaint:Patient presents with: Established Patient: Neuropathy, falls Chart Review: 08/06/24 Last Filed Values Date of Most Recent Assessment and Plan 08/06/24 Specialty General Neurology Assessment ASSESSMENT/PLAN: 1. Neuropathy - ICD9: 355.9, ICD10: G62.9 (primary diagnosis) 2. Paresthesia of both feet - ICD9: 782.0, ICD10: R20.2 3. Frequent falls - ICD9: V15.88, ICD10: R29.6 Patient with complaints of paresthesias to hands and feet, history is limited and changes throughout interview. Originally symptoms started 3 to 4 weeks ago but then patient corrects with loss and states it has been months of ongoing symptoms. Reporting 6 months of some difficulty with handwriting, has undergone occupational therapy and physical therapy for this with no improvement. Has history of carpal tunnel syndrome 10 years ago with bilateral surgeries but feels it is not related. Patient does have abnormal sensory testing on exam, has decreased in temperature and pinprick in the feet bilaterally and lower leg, worse on the right than the left. Unable to test vibration, has very poor proprioception. Notes frequent falls, last fall was 3 weeks ago. Notes that her right leg gave out on her, uses a rollator at home but does have a wheelchair. Has history of lumbar surgery, notes was many years ago and has not followed with orthopedics since. Does see pain management for chronic back pain. Recent MRI of the lumbar and thoracic spine show diffuse degenerative changes ranging moderate to severe. Also with compression fracture in the thoracic spine. At this time, discussed that her symptoms could be multifactorial including lumbar, thoracic disease versus neuropathy versus nerve impingement. Regarding her handwriting, unclear etiology for this, does have significant thenar atrophy bilaterally patient reports that she does not believe it secondary to her carpal tunnel. Discussed obtaining an EMG of the upper and lower extremity to evaluate for any signs of neuropathy versus nerve impingement contributing to her symptoms. Patient is amenable to this. Additionally, will order basic blood work to look for common causes of neuropathy. No signs or symptoms of acute cord compression at this time. In addition to paresthesias, patient reporting a significant concern for bony prominences on her chest, discussed at length this is not something I usually see, encouraged her to follow-up with her primary care for further evaluation. Does have history of breast cancer with radiation in the area. Patient agreeable to treatment plan of care at this time, questions were answered. Patient to follow-up after workup is completed. Denice Jacobs PA-C HPI: Last seen on 08/06/24 for neuropathy, paresthesias to hands and feet, falls. Ongoing for months, went to OT and PT. MRI lumbar with degeneration. Ordered EMG and showed lumbar degeneration. No significant change from previous appointment, presents today primarily to go over results and ask questions. Notes that she did have hiatal hernia surgery and is still having a lot of abdominal pain from her incisions but otherwise is doing well. No significant falls, notes that while recovering from the surgery she did not wear caustic loader socks and did slide to the ground no major injuries with that. No other new symptoms or concerns today. 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 Abnormality of Gait Multiple Falls Weakness Coronary Artery Disease Due to Lipid Rich Plaque Bilateral Leg Edema Bronchiectasis (Hcc) Gastroesophageal Reflux Disease Essential Hypertension History of Dvt (Deep Vein Thrombosis) Hyperlipidemia History of Malignant Neoplasm of Breast Hypothyroidism 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 Iron Deficiency Anemia Obstructive Sleep Apnea Syndrome Osteoporosis Overactive Bladder Restless Legs Syndrome History of Pulmonary Embolism Coronary Stent Patent Chronic Pain Hypoglycemia Hiatal Hernia Pulmonary Htn (Hcc) Tricuspid Regurgitation Kyphosis History of Transient Ischemic Attack (Tia) Depression 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 Back pain Cancer (HCC) Chronic pain Complex partial seizures (HCC) Dementia (HCC) Depression DVT (deep venous thrombosis) (HCC) Dysphagia Frequent falls GERD (gastroesophageal reflux disease) Glaucoma suspect of both eyes Heart disease History of heart attack History of transient ischemic attack (TIA) Hypercholesterolemia Hypertension Low iron Presenile dementia, uncomplicated (HCC) Pseudophakia Pulmonary HTN (HCC) Restless leg syndrome Seizure (HCC) Thyroid disease TIA (transient ischemic attack) Tricuspid regurgitation Medications: Reviewed iv contrast (will be provided with radiology test) CT ABD/PEL -Inject, intravenously, once for 1 dose.No IV access, insert saline lock prior to the beginning of sedation, infusion, injection of imaging exam. Discontinue saline lock post exam. If Pt. has a central line or IVAD, may access for administration according to line specific nursing protocol. Once exam is complete flush line and de-access according to line specific nursing protocol in the CT contrast administration guidelines link. dorzolamide-timolol (COSOPT) 22.3-6.8 mg/mL ophthalmic solution Use 1 Drop in both eyes two times a day. traMADol 25 mg tablet Take 25 mg by mouth every 6 hours as needed. gentamicin 0.1% miconazole 2% triamcinolone 0.1% 1:1:1 topical cream (CPD) Apply to affected area two times a day for [address] (PROTONIX) 40 mg tablet Take 1 tablet by mouth once daily. HYDROcodone-acetaminophen (NORCO) 5-325 mg per tablet Take 1 tablet by mouth every 6 hours as needed for pain for up to 72 doses. OXYGEN, HOME THERAPY, Inhale 2 L/min as instructed as directed. With naps and at bedtime casanthranol/docusate sodium (DOCUSATE SODIUM WITH LAXATIVE ORAL) Take 1 tablet by mouth every other day. furosemide (LASIX) 20 mg tablet Take 0.5 tablets by mouth every afternoon. As needed potassium chloride ER (KLOR-CON) 20 mEq tablet Take 1 tablet by mouth once daily. latanoprost (XALATAN) 0.005 % ophthalmic solution Use 1 Drop in both eyes daily at bedtime. d-mannose 500 mg capsule Take 500 mg by mouth once daily. donepezil (ARICEPT) 10 mg tablet Take 1 tablet by mouth daily with breakfast. gabapentin (NEURONTIN) 100 mg capsule Take 100 mg by mouth once daily as needed. famotidine (PEPCID) 10 mg tablet Take 10 mg by mouth twice daily. DODEX 1,000 mcg/mL Inject 1,000 mcg intramuscularly once every month. Vitamin [id number] ammonium lactate (LAC-HYDRIN) 12 % lotion MULTIVITAMIN ORAL Take 1 tablet by mouth once daily. albuterol (PROVENTIL) 2.5 mg /3 mL (0.083 %) nebulizer solution Use 2.5 mg via nebulizer as needed. Lactobacillus acidophilus (PROBIOTIC) 10 billion cell cap Take 1 capsule by mouth once daily. pramipexole (MIRAPEX) 0.5 mg tablet Take 0.5 mg by mouth two times a day. vortioxetine (TRINTELLIX) 20 mg tablet Take 20 mg by mouth once daily. atorvastatin (LIPITOR) 40 mg tablet Take 40 mg by mouth once daily. ELIQUIS 5 mg tab(s) Take 5 mg by mouth two times a day. BID levothyroxine (SYNTHROID) 50 mcg tablet Take 50 mcg by mouth once daily. memantine (NAMENDA) 10 mg tablet Take 10 mg by mouth two times a day. MYRBETRIQ 50 mg Tb24 Take 50 mg by mouth once daily. lacosamide (VIMPAT) 100 mg tab Take 1 [...] every 6 months. Last injection November 2020 ALLERGIES Allergen Reactions Propoxyphene N-Acet* Other: See Comments hallucinations Adhesive Tape-Silic* Unknown Other reaction(s): Other (comments) Not sure which type of tape but red skin. Doxycycline Vomiting Lamictal [Lamotrigi* Swelling Lips swelling Latex Rash Moxifloxacin Mental Status Change Percocet [Oxycodone* Mental Status Change Propoxyphene Mental Status Change, Other: See Comments Hallucinations Includes Darvocet Zolpidem Mental Status Change Adhesive Other: See Comments Not sure which type of tape but red skin. Diclofenac Sodium Other: See Comments Topical gel resulted in hand swelling. Oxycodone Mental Status Change FAMILY HISTORY Problem Relation Age of Onset No Ocular Disease Mother Stroke Mother Arthritis Mother No Ocular Disease Father Heart Attack Father 40 Hypertension Father Alcohol abuse Father other (oth) Sister anemia Anesthesia Problems No Family History PAST SURGICAL HISTORY Procedure Laterality Date CC CORONARY STENT ~1989 PAST SURGICAL HISTORY OF Ablation T 11 PAST SURGICAL HISTORY OF hernia surgery PAST SURGICAL HISTORY OF hammer toe correction PAST SURGICAL HISTORY OF lumbar laminectomy PAST SURGICAL HISTORY OF carpal tunnel release PAST SURGICAL HISTORY OF tonsillectomy and adenoidectomy PAST SURGICAL HISTORY OF lumpectomy of left breast PAST SURGICAL HISTORY OF cardiac catheterization PAST SURGICAL HISTORY OF EGD PAST SURGICAL HISTORY OF colonoscopy PAST SURGICAL HISTORY OF ventral hernia repair PAST SURGICAL HISTORY OF cataract surgery PAST SURGICAL HISTORY OF appendectomy PAST SURGICAL HISTORY OF kyphoplasty REMV CATARACT EXTRACAP,INSERT LENS Bilateral Social Hx: @Alcohol Use: Not on file Tobacco Use: Low Risk (11/01/2024) Patient History Smoking Tobacco Use: Never Smokeless Tobacco Use: Never Passive Exposure: Not on file 11/03/24 1532 BP: 125/73 Pulse: 68 Neurologic Exam Cognitive and Language: Alert and answered questions appropriately. Language was fluent. Cranial Nerves: Extraocular movements were full with no diplopia or nystagmus. Facial strength was symmetric. Motor: Full strength throughout, slight decrease in strength to the right abduction of the hand but otherwise intact. Sensory: Intact light touch. Coordination: Using wheelchair Labs: Lab Results Component Value Date WBC 5.57 09/23/2024 HCT 33.2 (L) 09/23/2024 MCV 90.5 09/23/2024 PLT 150 09/23/2024 No results found for: HBA1C Total Cholesterol, Nonfasting Date Value Ref Range Status 09/14/2024 137 <200 mg/dL Final Comment: <200 mg/dL, Desirable 200-239 mg/dL, Borderline high >239 mg/dL, High HDL Cholesterol, Nonfasting Date Value Ref Range Status 09/14/2024 63 >39 mg/dL Final Comment: 40-59 mg/dL, Acceptable >59 mg/dL, High: Negative risk factor for coronary heart disease <40 mg/dL, Low: Positive risk factor for coronary heart disease LDL Cholesterol, Nonfasting Date Value Ref Range Status 09/14/2024 61 <100 mg/dL Final Comment: <100 mg/dL, Optimal 100-129 mg/dL, Near optimal/above optimal 130-159 mg/dL, Borderline high 160-189 mg/dL, High >189 mg/dL, Very high Secondary prevention optimal LDL Cholesterol levels are recommended to be < 70 mg/dL Triglycerides, Nonfasting Date Value Ref Range Status 09/14/2024 65 <150 mg/dL Final Comment: <150 mg/dL, Normal 150-199 mg/dL, Borderline high 200-499 mg/dL, High >499 mg/dL, Very high Results for orders placed or performed during the hospital encounter of 09/20/24 SURGICAL PATHOLOGY Result Value Ref Range Case Report Surgical Pathology Report Case: [id number] Authorizing Provider: Anila De Paz MD Collected: 09/20/2024 11:38 AM Ordering Location: Admitting Received: 09/20/2024 02:49 PM Pathologist: Susan Ku MD Specimens: A) - Hernia Sac B) - Gallbladder FINAL DIAGNOSIS A. Hernia sac, resection: - Benign fibroadipose tissue. B. Gallbladder, cholecystectomy: - Mild chronic cholecystitis. Gross Description A. Hernia Sac Received in formalin, labeled hernia sac, is a zapata-pink, irregular fatty and fibromembranous soft tissue fragment measuring 3.6 x 1.5 x 0.4 cm. The specimen is sectioned to reveal unremarkable cut surfaces with no areas of induration, nodularity, hemorrhage or necrosis identified. The specimen is submitted entirely in A1. B. Gallbladder Received in formalin labeled gallbladder is a 13 x 2.5 x 1.5 cm cholecystectomy specimen. The serosal surface is pink-zapata bianchi, smooth and glistening with the exception of the cauterized hepatic bed. Opening of the gallbladder reveals green-yellow, viscous bile. No calculi are present. The gallbladder mucosa is green-zapata and velvety with an average wall thickness of 0.2 cm. No polyps or mass lesions are identified. The cystic duct margin (en face) and motor vehicle field representative sections of the gallbladder wall are submitted in B1. KSZ September 20, 2024 3:38 PM Gross examination performed at [facility], [address] [place] [address] Clinical History Pre-op diagnosis: Hiatal hernia [K44.9] Epigastric pain [R10.13] Nausea and vomiting, unspecified vomiting type [R11.2] Pre-op exam [Z01.818] Performing Lab Diagnostic interpretation performed at: [facility], [address] [place] [address], [address] [id number] Head Strength And Conditioning Coach: Rosales Quintana MD COMPLETE BLOOD COUNT Result Value Ref Range WBC 7.72 3.70 - 11.00 k/uL RBC 3.90 3.90 - 5.20 m/uL Hemoglobin 11.1 (L) 11.5 - 15.5 g/dL Hematocrit 35.4 (L) 36.0 - 46.0 % MCV 90.8 80.0 - 100.0 fL MCH 28.5 26.0 - 34.0 pg MCHC 31.4 30.5 - 36.0 g/dL RDW-CV 14.1 11.5 - 15.0 % Platelet Count 137 (L) 150 - 400 k/uL MPV 10.0 9.0 - 12.7 fL Absolute nRBC <0.01 <0.01 k/uL COMPLETE BLOOD COUNT AND DIFFERENTIAL Result Value Ref Range WBC 6.53 3.70 - 11.00 k/uL RBC 3.87 (L) 3.90 - 5.20 m/uL Hemoglobin 11.2 (L) 11.5 - 15.5 g/dL Hematocrit 35.7 (L) 36.0 - 46.0 % MCV 92.2 80.0 - 100.0 fL MCH 28.9 26.0 - 34.0 pg MCHC 31.4 30.5 - 36.0 g/dL RDW-CV 13.7 11.5 - 15.0 % Platelet Count 158 150 - 400 k/uL MPV 10.7 9.0 - 12.7 fL Neutrophils % 70.8 % Abs Neut 4.63 1.45 - 7.50 k/uL Lymphocytes % 20.1 % Abs Lymph 1.31 1.00 - 4.00 k/uL Monocytes % 8.3 % Abs [place] 0.54 <0.87 k/uL Eosinophils % 0.2 % Abs Eosin <0.03 <0.46 k/uL Basophils % 0.3 % Abs Baso <0.03 <0.11 k/uL Immature Granulocytes % 0.3 % Abs Immature Gran <0.03 <0.10 k/uL NRBC 0.0 /100 WBC Absolute nRBC <0.01 <0.01 k/uL Diff Type Auto BASIC METABOLIC PANEL Result Value Ref Range Glucose 64 (L) 74 - 99 mg/dL BUN 15 7 - 21 mg/dL Creatinine 0.78 0.58 - 0.96 mg/dL Sodium 138 136 - 144 mmol/L Potassium 4.2 3.7 - 5.1 mmol/L Chloride 102 98 - 107 mmol/L CO2 24 22 - 30 mmol/L Anion Gap 12 8 - 15 mmol/L Calcium, Total 8.0 (L) 8.5 - 10.2 mg/dL Estimated Glomerular Filtration Rate 76 >=60 mL/min/1.73m MAGNESIUM Result Value Ref Range Magnesium 1.7 1.7 - 2.3 mg/dL PHOSPHORUS INORGANIC Result Value Ref Range Phosphorus 2.7 2.7 - 4.8 mg/dL COMPLETE BLOOD COUNT Result Value Ref Range WBC 4.72 3.70 - 11.00 k/uL RBC 3.71 (L) 3.90 - 5.20 m/uL Hemoglobin 10.8 (L) 11.5 - 15.5 g/dL Hematocrit 33.8 (L) 36.0 - 46.0 % MCV 91.1 80.0 - 100.0 fL MCH 29.1 26.0 - 34.0 pg MCHC 32.0 30.5 - 36.0 g/dL RDW-CV 13.7 11.5 - 15.0 % Platelet Count 147 (L) 150 - 400 k/uL MPV 10.6 9.0 - 12.7 fL Absolute nRBC <0.01 <0.01 k/uL COMPREHENSIVE METABOLIC PANEL Result Value Ref Range Protein, Total 5.5 (L) 6.3 - 8.0 g/dL Albumin 3.2 (L) 3.9 - 4.9 g/dL Calcium, Total 8.0 (L) 8.5 - 10.2 mg/dL Bilirubin, Total 1.0 0.2 - 1.3 mg/dL Alkaline Phosphatase 74 34 - 123 U/L AST 45 (H) 13 - 35 U/L ALT 30 7 - 38 U/L Glucose 75 74 - 99 mg/dL BUN 11 7 - 21 mg/dL Creatinine 0.82 0.58 - 0.96 mg/dL Sodium 136 136 - 144 mmol/L Potassium 4.0 3.7 - 5.1 mmol/L Chloride 102 98 - 107 mmol/L CO2 25 22 - 30 mmol/L Anion Gap 9 8 - 15 mmol/L Estimated Glomerular Filtration Rate 72 >=60 mL/min/1.73m MAGNESIUM Result Value Ref Range Magnesium 2.1 1.7 - 2.3 mg/dL PHOSPHORUS INORGANIC Result Value Ref Range Phosphorus 1.7 (L) 2.7 - 4.8 mg/dL HEPATIC FUNCTION PNL Result Value Ref Range Albumin 3.4 (L) 3.9 - 4.9 g/dL Bilirubin, Total 0.9 0.2 - 1.3 mg/dL Bilirubin, Direct 0.3 (H) <0.3 mg/dL Alkaline Phosphatase 65 34 - 123 U/L AST 52 (H) 13 - 35 U/L ALT 30 7 - 38 U/L Protein, Total 5.8 (L) 6.3 - 8.0 g/dL COMPLETE BLOOD COUNT Result Value Ref Range WBC 5.57 3.70 - 11.00 k/uL RBC 3.67 (L) 3.90 - 5.20 m/uL Hemoglobin 10.7 (L) 11.5 - 15.5 g/dL Hematocrit 33.2 (L) 36.0 - 46.0 % MCV 90.5 80.0 - 100.0 fL MCH 29.2 26.0 - 34.0 pg MCHC 32.2 30.5 - 36.0 g/dL RDW-CV 13.6 11.5 - 15.0 % Platelet Count 150 150 - 400 k/uL MPV 10.8 9.0 - 12.7 fL Absolute nRBC <0.01 <0.01 k/uL COMPREHENSIVE METABOLIC PANEL Result Value Ref Range Protein, Total 5.7 (L) 6.3 - 8.0 g/dL Albumin 3.3 (L) 3.9 - 4.9 g/dL Calcium, Total 8.1 (L) 8.5 - 10.2 mg/dL Bilirubin, Total 0.5 0.2 - 1.3 mg/dL Alkaline Phosphatase 71 34 - 123 U/L AST 30 13 - 35 U/L ALT 25 7 - 38 U/L Glucose 93 74 - 99 mg/dL BUN 12 7 - 21 mg/dL Creatinine 0.81 0.58 - 0.96 mg/dL Sodium 137 136 - 144 mmol/L Potassium 3.8 3.7 - 5.1 mmol/L Chloride 102 98 - 107 mmol/L CO2 27 22 - 30 mmol/L Anion Gap 8 8 - 15 mmol/L Estimated Glomerular Filtration Rate 73 >=60 mL/min/1.73m MAGNESIUM Result Value Ref Range Magnesium 1.8 1.7 - 2.3 mg/dL PHOSPHORUS INORGANIC Result Value Ref Range Phosphorus 1.7 (L) 2.7 - 4.8 mg/dL GLUCOSE, BLOOD (POC) Result Value Ref Range Glucose, Point of Care 80 74 - 99 mg/dL EMG 09/10/24 Study Interpretation Electrodiagnostic examination of the right upper and lower limbs reveals: 1. No definite evidence of a generalized large fiber sensorimotor polyneuropathy. Of note, a pure small fiber neuropathy cannot be excluded based on this study. 2. The residuals of an old intraspinal canal lesion (ie: motor radiculopathy) at the right L5 root or segment, mild in degree electrically. 3. Right ulnar mononeuropathy, with mixed axonal and demyelinating features, mild to moderate in degree electrically. This lesion is non-localizable electrodiagnostically. Neuromuscular ultrasound could be considered to further localize this lesion, if clinically indicated. 4. No evidence of a right median mononeuropathy at or distal to the wrist (ie: carpal tunnel syndrome). Radiology: MRI Head/Brain - Last 2 Impressions MRI BRAIN WO/W IVCON Collected: 11/01/2019 9:42 AM (Final result) Impression: 1. No acute findings. No evidence of acute infarct, mass or hemorrhage. No unusual enhancement. 2. The exam is notable for prominent atrophy and prominent white matter changes, most consistent with chronic small vessel ischemic disease. I do... MRI BRAIN WO/W IVCON Exam End: 12/28/2018 12:38 PM (Final result) Impression: No acute intracranial abnormality. Signed By: Constantin Landry MD on 12/28/2018 12:45 PM and MRI Spine - Last 2 Impressions MRI THORACIC SPINE WO IVCON Collected: 02/11/2020 11:07 AM (Final result) Impression: 1. Marrow edema within T8 vertebral body extending to the right greater the left pedicles and spinous process is compatible with recent compression fracture with approximately 40-60% loss of expected vertebral body height. Moderate bilateral T8-9 neural foraminal narrowing. 2. Marrow edema in the right T7 transverse process may represent additional fracture. 3. Chronic appearing moderate anterior wedge compression deformity of T4 and mild anterior wedge compression deformity of T11 are unchanged. INTERPRETING PHYSICIAN: Vaibhav Ann MD YS//Report ID: [id number] Creation Date: 02/11/20 11:42 am ELECTRONICALLY SIGNED BY: VAIBHAV ANN MD Date Signed: 02/11/20 11:45 am MRI LUMBAR SPINE WO/W IVCON Collected: 02/11/2020 11:04 AM (Final result) Impression: 1. Postoperative changes from L3-4 through L5-S1 posterior decompression. 2. Chronic vertebral body height loss of L2, L3 and L4 with kyphoplasty, grossly unchanged. No recent fracture. 3. Advanced multilevel degenerative changes as described above with at least moderate to moderate severe neural foraminal narrowing noted spanning L1-2 through L5-S1 discs due to a combination of disc height loss, mild ligamentum flavum hypertrophy and facet arthropathy. No significant spinal canal stenosis. INTERPRETING PHYSICIAN: Vaibhav Ann MD YS//Report ID: [id number] Creation Date: 02/11/20 11:53 am ELECTRONICALLY SIGNED BY: VAIBHAV ANN MD Date Signed: 02/11/20 11:56 am This note was dictated using Dragon speech recognition software and may contain some errors that were a result of the program not accurately transcribing what was dictated, despite efforts to make corrections. Note that unless urgent, test and MRI results will be discussed at next follow-up visit. PROMIS (Patient-Reported Outcomes Measurement Information System) is a set of person-centered measures that evaluates and monitors physical, social, and emotional health. It can be used with the general population and with individuals living with chronic conditions. PROMIS 10: PHYSICAL AND MENTAL HEALTH: 10/07/2024 PHQ-9 PHQ-2 Score 0 PHQ-9 Score 3 Medical Decision Making: Medical Decision Making Level: 1 - N/A I spent a total of 30 minutes on the date of the service which included preparing to see the patient, [id number] patient care, completing clinical documentation, obtaining and/or reviewing separately obtained history, performing a medically appropriate examination, counseling and educating the patient/family/caregiver, and ordering medications, tests, or procedures. documented in this encounter [facility] 11-02-[address] ABD pel IV con PPI Full liquid diet [facility] 11-02-[address] ABD pel IV con PPI Full liquid diet documented in this encounter [facility] 11-01-2024 Instructions Humza Camejo MD - 11/01/2024 3:54 PM EDT Medication Eye # times daily Latanoprost (green cap) BOTH 1x daily (bedtime) Cosopt or dorzolamide + timolol (dark navy blue cap) BOTH 2x daily Brimonidine (purple cap) STOP 2x daily *please remember to wait at least 3 minutes between different drops in the same eye. 11/01/24 You will be dilated on your next visit. This will likely make your vision blurry for several hours, and you should strongly consider bringing a regional refrigerated cdl truck driver. documented in this encounter [facility] 11-01-2024 Note Date of Procedure 11/01/2024. Computer Numeric Control Setter Information Lithoduplicator Operator: NEERU. Start time: 3:43 PM. Stop time: 3:43 PM. 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 Interval Change Right Eye Worse. Left Eye Worse. ZEISS 11-01-2024 Note [facility] 11-01-2024 History of Presen t illness Narrative Tmax: <21 per outside; Pachy: 550, 572 Lasers and Surgeries: OD: CEIOL OS: CEIOL Ocular Medication Intol and Non-efficacy: COPD on 2L when sleeping Now on latan 08/18, brim 2/2 (missed this AM) Next on latan 08/18, cosopt 2/2 -HVF 10/2024 OD inf arc, more defined OS inf arc, more defined -OCT 04/2024 OD sup and inf wedge, stable OS sup wedge, stable # Primary open angle glaucoma (POAG) severe both eyes - MRI brain reportedly fine - visual field more defined arcs both eyes - continue brimonidine for neuroprotection - switch brim to cosopt base down both eyes, emphasized on using in the am of appointment - has well controlled COPD without needing inhalers, and only needing O2 while sleeping - warned that if has worsening breathing issues to stop cosopt, also instructed on punctal occlusion to minimize systemic side effect - follow 2 months, intraocular pressure, dilate, and repeat OCT retinal nerve fiber layer early - with Dr. 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 documented in this encounter [facility] 10-29-2024 Telephone encounter Note Incoming [facility] states the compound that was sent over they do not cover it and it would have to be sent to a different pharmacy. Sandie Messina [facility] 10-29-2024 Miscellaneous Notes Incoming call from [facility] pharmacy states the compound that was sent over they do not cover it and it would have to be sent to a different pharmacy. Sandie Messina documented in this encounter [facility] 10-29-2024 Note [facility] 10-29-2024 History of Presen t illness Narrative Name: Lauren Alcaraz Assessment and Plan: Lauren Alcaraz is a 84 year old female who presents for follow up after Lap primary PEHR, gastropexy, cholecystectomy, IOC, transcystic CBD exploration on 09/20/24. She is 4 weeks s/p the surgical intervention. Since then she has been doing well. Just chronic back pain. She is complaining of the left sided abdominal pain which I think its related to the gastropexy stitches, which is expected at this point. I advised to give him some time and will reassess in a month Subjective/Interval Events: afebrile, pain well controlled, nausea or vomiting, passing flatus, having BF Objective: BP 93/51 Pulse 77 Ht 139.7 cm (4' 7) Wt 47.4 kg (104 lb 8 oz) LMP (LMP Unknown) BMI 24.29 kg/m Intake and Output: No intake/output data recorded. CBC BMP Physical exam: General: Awake, alert and oriented, NAD Neck: supple. Respiratory: Non-labored breathing Cardiac: HDS Abdomen: Soft, non-distended, tender on the left upper quadrant, incision C/D/I Anila De Paz MD October 29, 2024 2:07 PM documented in this encounter [facility] 10-29-2024 Note HNO ID: [id number] Author: RADHA STREET, OTR/L Service: ? Author Type: Occupational Therapist Type: Progress Notes Filed: 10/29/2024 12:32 Note Text: Episode Visit Count: 1 Therapist That Will Accept/Oversee The Plan Of Care: Mariza Street Start of Care Date: 10/29/24 Onset Date: 10/29/22 Plan of Care Certification Date: 10/29/24 Next Certification Due Date: 12/28/24 Patient Identified by Name and Date of : Yes [facility] OCCUPATIONAL THERAPY EVALUATION PLAN OF CARE: Assessment: Lauren Alcaraz presents with chief complaint of bilateral fine motor coordination impairment that interferes with gripping, pinching (handwriting) . The patient presents with impairments in coordination, sensation, and strength. PROMIS? (Patient-Reported Outcomes Measurement Information System) scores were reviewed and identified as a rehabilitation concern. Prognosis for therapy is Good due to: (good motivation) Fair due to: chronic nature of impairments . The patient will benefit from skilled therapy services to meet the goals established for this plan of care as noted below. Goals for Episode of Care: established 10/29/24 Patient will complete HEP at Modified [place] level. Patient will increase bilateral caustic loader and pinches by 5# to improve function for leisure / recreation skills. Patient will demonstrate improved neuromuscular coordination as evidenced by improved 9-hole peg test to WNL for age range to improve function for light functional tasks. Patient will report improved efficiency with handwriting to at least 60% of normal with adaptive techniques. Patient will report improved efficiency with buttoning with adaptive techniques PRN Patient Goals: improve use of hands, buttoning, improve handwriting (writing in cards) Time Frame for Goals and Treatment : 12/28/24 Planned Interventions, Frequency, and Duration: Current Frequency: 1x/week Duration: 8 weeks Total Number of Visits Planned: 8 Planned Treatment Interventions: Therapeutic exercise (01193), Neuromuscular re-education (61693), Self-residential management (50313), Patient/Family/Caregiver Education PLAN FOR NEXT VISIT:assess different writing utensils, proximal stability? button hook, gentle caustic loader strengthening Patient demonstrates good understanding of plan of care and treatment. The above goals and plan of care were discussed and agreed upon by patient/family. SUBJECTIVE: OT evaluation for fine motor coordination impairment. Functional Limitations: gripping, pinching (handwriting) Prior Level of Function: Independent without limitations Patient Goals: improve use of hands, buttoning, improve handwriting (writing in cards) Intake Information: Prescription present Previous Treatment: None Falls Interview: Two or more falls in the last year Falls Intervention: Patient referred for more thorough falls assessment. 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 / Interests: puzzles, crafting (putting stickers on things, making cards) Home Environment Patient Lives With: Spouse Assistance Available: 24-Hour Equipment Owned: Dressing Stick, Laborer Syrup Machine Pain: Pain Pain Level: 0 (mild arthritic pain) Post Treatment Pain Post Treatment Pain Level: No Change PROMIS Scales 10/23/2024 05/13/2021 04/14/2021 Higher is Better Phys Func - T Score 33 (moderate dysfunction) 33 (moderate dysfunction) Phys Func - Percentile 4 4 Self-Eff Symptom - T Score 41 (Average) 39 (Low) 29 (Very Low) Self-Eff Symptom - Percentile 18 14 2 Upper Extremity - T Score 26 (severe dysfunction) Upper Extremity - Percentile 1 T-scores: mean of general population = 50. 5 points is clinically meaningfully difference Percentiles provide an indication of how the patient's score ranks in relation to the general population. Higher percentile rankings indicate better function/quality of life. 50th percentile is the average of the general population and indicates half of respondents had a worse score. OBJECTIVE MEASURES WITH LEVEL OF FUNCTION: Posture / Alignment Posture: Increased thoracic kyphosis, Forward head Hand Strength R Cross Enterprise Integrator Position 2 (lbs): 35 lbs L Cross Enterprise Integrator Position 2 (lbs): 24 lbs R Lateral Pinch (lbs): 10 lbs R Tripod/ 3 Jaw Clovis (lbs): 10 lbs R Tip Pinch (lbs): 7 lbs L Lateral Pinch (lbs): 5 lbs L Tripod/ 3 Jaw [place] (lbs): 7 lbs L Tip Pinch (lbs): 7 lbs UE AROM R UE AROM: proximal limited by significant kyphosis; distal: arthritic changes L UE AROM: proximal limited by significant kyphosis; distal: arthritic changes Current Activities Of Daily Living Feeding: Set Up (difficulty cutting meat) Grooming: Modified Independent Bathing Upper Body: Modified Independent Bathing (more content not included)... [facility] 10-29-2024 History of Presen t illness Narrative Images from the original note were not included. Episode Visit Count: 1 Therapist That Will Accept/Oversee The Plan Of Care: Mariza Street Start of Care Date: 10/29/24 Onset Date: 10/29/22 Plan of Care Certification Date: 10/29/24 Next Certification Due Date: 12/28/24 Patient Identified by Name and Date of : Yes [facility] OCCUPATIONAL THERAPY EVALUATION PLAN OF CARE: Assessment: Lauren Alcaraz presents with chief complaint of bilateral fine motor coordination impairment that interferes with gripping, pinching (handwriting) . The patient presents with impairments in coordination, sensation, and strength. PROMIS (Patient-Reported Outcomes Measurement Information System) scores were reviewed and identified as a rehabilitation concern. Prognosis for therapy is Good due to: (good motivation) Fair due to: chronic nature of impairments . The patient will benefit from skilled therapy services to meet the goals established for this plan of care as noted below. Goals for Episode of Care: established 10/29/24 Patient will complete HEP at Modified [place] level. Patient will increase bilateral caustic loader and pinches by 5# to improve function for leisure / recreation skills. Patient will demonstrate improved neuromuscular coordination as evidenced by improved 9-hole peg test to WNL for age range to improve function for light functional tasks. Patient will report improved efficiency with handwriting to at least 60% of normal with adaptive techniques. Patient will report improved efficiency with buttoning with adaptive techniques PRN Patient Goals: improve use of hands, buttoning, improve handwriting (writing in cards) Time Frame for Goals and Treatment : 12/28/24 Planned Interventions, Frequency, and Duration: Current Frequency: 1x/week Duration: 8 weeks Total Number of Visits Planned: 8 Planned Treatment Interventions: Therapeutic exercise (83623), Neuromuscular re-education (98859), Self-residential management ([id number]), Patient/Family/Caregiver Education PLAN FOR NEXT VISIT:assess different writing utensils, proximal stability? button hook, gentle caustic loader strengthening Patient demonstrates good understanding of plan of care and treatment. The above goals and plan of care were discussed and agreed upon by patient/family. SUBJECTIVE: OT evaluation for fine motor coordination impairment. Functional Limitations: gripping, pinching (handwriting) Prior Level of Function: Independent without limitations Patient Goals: improve use of hands, buttoning, improve handwriting (writing in cards) Intake Information: Prescription present Previous Treatment: None Falls Interview: Two or more falls in the last year Falls Intervention: Patient referred for more thorough falls assessment. 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 / Interests: puzzles, crafting (putting stickers on things, making cards) Home Environment Patient Lives With: Spouse Assistance Available: 24-Hour Equipment Owned: Dressing Stick, Laborer Syrup Machine Pain: Pain Pain Level: 0 (mild arthritic pain) Post Treatment Pain Post Treatment Pain Level: No Change PROMIS Scales 10/23/2024 05/13/2021 04/14/2021 Higher is Better Phys Func - T Score 33 (moderate dysfunction) 33 (moderate dysfunction) Phys Func - Percentile 4 4 Self-Eff Symptom - T Score 41 (Average) 39 (Low) 29 (Very Low) Self-Eff Symptom - Percentile 18 14 2 Upper Extremity - T Score 26 (severe dysfunction) Upper Extremity - Percentile 1 T-scores: mean of general population = 50. 5 points is clinically meaningfully difference Percentiles provide an indication of how the patient's score ranks in relation to the general population. Higher percentile rankings indicate better function/quality of life. 50th percentile is the average of the general population and indicates half of respondents had a worse score. OBJECTIVE MEASURES WITH LEVEL OF FUNCTION: Posture / Alignment Posture: Increased thoracic kyphosis, Forward head Hand Strength R Cross [employer] Integrator Position 2 (lbs): 35 lbs L Cross [employer] Integrator Position 2 (lbs): 24 lbs R Lateral Pinch (lbs): 10 lbs R Tripod/ 3 Jaw Clovis (lbs): 10 lbs R Tip Pinch (lbs): 7 lbs L Lateral Pinch (lbs): 5 lbs L Tripod/ 3 Jaw [place]is (lbs): 7 lbs L Tip Pinch (lbs): 7 lbs UE AROM R UE AROM: proximal limited by significant kyphosis; distal: arthritic changes L UE AROM: proximal limited by significant kyphosis; distal: arthritic changes Current Activities Of Daily Living Feeding: Set Up (difficulty cutting meat) Grooming: Modified Independent Bathing Upper Body: Modified Independent Bathing Lower Body: Modified Independent (walk in tub) Dressing Upper Body: Minimal Assistance (difficulty buttonning) Dressing Lower Body : Modified Independent Toileting: Modified Independent Instrumental Activities of Daily Living Cooking: (spouse completes) Laundry: Modified Independent Medication Management with Strategies: (uses pill packs) Additional Instrumental Activities of Daily Living: handwriting assessment: 30% of normal Functional Performance Test Results 9 Hole Peg Test Right (seconds): 38.5 9 Hole Peg Test Left (seconds): 30.1 Education: Education Learning Preferences: Demonstration, Explanation, Performance, Printed Materials Barriers: None Learning/educational needs: Plan of Care, Home exercise program Education Provided: Yes, see treatment interventions for education provided Education Provided To: Patient, Caregiver Education Mode/Type: Demonstration, Explanation/Discussion Response to Education/Teach Back: States/Identifies, Requires Review/Additional Education TREATMENT: OT Treatment Interventions : Self-Longterm Management Evaluation Self-Longterm Management: 1: Pt and spouse educated in role of OT 2: Discussed soft cervical support collars and posture 3: Health literacy with EMG 4: Discussed prximal stability in relation to distal mobility/coordination 5: handwriting assessment 6: Educated in plan of care Skilled Intervention: Pt and spouse educated as noted. Billing * Evaluation Moderate Complexity: 1 Unit Self-Care/Home Management Treatment Minutes: 15 Skilled Treatment Time Minutes (timed and untimed codes): 43 Total Session Time (minutes): 43 Session Start Time : 1052 Session Stop Time : 1135 Radha Hesson, OTR/L documented in this encounter [facility] 10-18-2024 Telephone encounter Note 10/18/24 PCP is listed in the patient's chart. Thank you! -IN [facility] 10-18-2024 Miscellaneous Notes 10/18/24 PCP is listed in the patient's chart. Thank you! -IN documented in this encounter [facility] 10-14-2024 Evaluation note Diagnosis Onset Date Resolution Depression acute October 14, 2024 1:03pm Falls frequently acute October 14, 2024 1:03pm Hiatal hernia acute October 142024 1:03pm History of cholecystectomy acute October 14, 2 025 1:03pm History of repair of hiatal hernia acute October 14, 2 025 1:03pm Hypothyroidism acute September 192024 1:03pm Seizure disorder acute October 14, 2024 1:03pm Difficulty swallowing chronic Feb ruary 2024 1:03pm Kyphoscoliosis deformity of spine chronic October 14, 2 025 1:03pm RSD (reflex sympathetic dystrophy) chronic October 14 2 025 1:03pm Bronchiectasis chronic October 22, 2024 2:11pm Kyphoscoliosis deformity of spine chronic October 22, 2024 2:11pm [facility] Work Phone: [phone]) 715-600602-26-2025 Instructions* Patient Instructions* Laisha Lizarraga, ROSMERY.RECEPTION CENTRE MANAGER - 10/13/2024 2:00 PM EST I will talk w/ my colleagues re: what would be best to help w/ the forward neck curvature, I.e.- PTfor cervical spine, vs other . Also ask your home dolphin trainer about a device for this as well. 2. Meet w/ Denice re: EMG results and next steps 3. Continue being active, healthy, and driven-- but careful at the same time! 4. We may consider Occupational Therapy for help w/ fine motor abiltiies and writing - I will look into any NeuroPT/OT that may be closer to you Follow up in ~3-6 mo [facility] History of Present illness Narrative* Laisha Lizarraga APRN.CNP - 10/13/2024 1:15 PM EST Images from the original note were not included. Lauren Alcaraz 1940 [address] [facility] [address] [place] [facility] [address] October 13, 2024 [facility] FOLLOW-UP NOTE Accompanied by: spouse Delroy SUBJECTIVE Lauren Alcaraz is a pleasant 84 year old female seen today for a follow up visit. 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 CSF AD biomarkers negative. 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 Contnue to be active, busy and cognitively/socially engaged 3. Be cautious with fall prevention 4. Continue to follow w/ Dr. De Paz 5. Consider seeing the Neuromuscular dept to have the numbness/tingling in feet evaluated better [phone] Follow up in ~3-6 months Today, Lauren and her sposue returns for a routine follow up visit. In the interim Lauren saw General Neurology to have her neuropathy evaluated Serology for neuropathy was ordered, along w/ EMG EMG shows old L5 lesion abnormality, and R ulnar neuropathy She remains bothered by n/t in bilateral feet Continues to take GBP 100mg daily for bedtime RLS symptoms (Used to be on much higher doses in the past) She also had a laparoscopic paraesophageal hernia repair early this month- +cholecystectomy Has had some difficulty /w pain control since then Struggled /w nightmares for some time- while taking opioids- and she has now been switched back to tramadol- this has helped the nightmares. Walking helps her with the back pain She did PT and they felt she did really very well there-- I aced it She admits she really loves PT and actually says I'm addicted to it Cognitively- she recovered reasonably well from anesthesia-- just perhaps mildly more confusion at times ; otherwise no major worsening of her cognition or function compared to last 1-2 yrs Has had several episodes in which she feels lightheaded, clammy, and pre-syncopal- Will sit/lay down She feels this is due to hypoglycemia- but cannot check her BG in those moments She asked if there is a device that may help her hold her head up-- she gets fatigued from having to constantly hold her head up (due to kyphosis- it is positioned forward) Vital Signs: BP (!) 81/43 (BP Site: Right Arm, BP Position: Sitting, BP Cuff Size: Small Adult) Pulse 73 Ht 139.7 cm (4' 7) Wt 45.8 kg (101 lb) LMP (LMP Unknown) BMI 23.47 kg/m Current Outpatient Medications on File Prior to Visit Medication Sig traMADol (ULTRAM) 50 mg tablet Take 0.5 tablets by mouth every 4 hours as needed for pain for up to10 days[address]oprazole DR (PROTONIX) 40 mg tablet Take 1 tablet by mouth once daily. HYDROcodone-acetaminophen (NORCO) 5-325 mg per tablet Take 1 tablet by mouth every 6 hours as needed for pain for up to 72 doses. OXYGEN, HOME THERAPY, Inhale 2 L/min as instructed as directed. With naps and at bedtime casanthranol/docusate sodium (DOCUSATE SODIUM WITH LAXATIVE ORAL) Take 1 tablet by mouth every other day. furosemide (LASIX) 20 mg tablet Take 0.5 tablets by mouth every afternoon. As needed potassium chloride ER (KLOR-CON) 20 mEq tablet Take 1 tablet by mouth once daily. brimonidine (ALPHAGAN) 0.2 % ophthalmic solution Use 1 Drop in both eyes two times a day. latanoprost (XALATAN) 0.005 % ophthalmic solution Use 1 Drop in both eyes daily at bedtime. d-mannose 500 mg capsule Take 500 mg by mouth once daily. donepezil (ARICEPT) 10 mg tablet Take 1 tablet by mouth daily with breakfast. gabapentin (NEURONTIN) 100 mg capsule Take 100 mg by mouth once daily as needed. famotidine (PEPCID) 10 mg tablet Take 10 mg by mouth twice daily. DODEX 1,000 mcg/mL Inject 1,000 mcg intramuscularly once every month. Vitamin I-16-jmqssbtyighxrl ammonium lactate (LAC-HYDRIN) 12 % lotion MULTIVITAMIN ORAL Take 1 tablet by mouth once daily. albuterol (PROVENTIL) 2.5 mg /3 mL (0.083 %) nebulizer solution Use 2.5 mg via nebulizer as needed. Lactobacillus acidophilus (PROBIOTIC) 10 billion cell cap Take 1 capsule by mouth once daily. pramipexole (MIRAPEX) 0.5 mg tablet Take 0.5 mg by mouth two times a day. vortioxetine (TRINTELLIX) 20 mg tablet Take 20 mg by mouth once daily. atorvastatin (LIPITOR) 40 mg tablet Take 40 mg by mouth once daily. ELIQUIS 5 mg tab(s) Take 5 mg by mouth two times a day. BID levothyroxine (SYNTHROID) 50 mcg tablet Take 50 mcg by mouth once daily. memantine (NAMENDA) 10 mg tablet Take 10 mg by mouth two times a day. MYRBETRIQ 50 mg Tb24 Take 50 mg by mouth once daily. lacosamide (VIMPAT) 100 mg tab Take 1 [...] facility-administered medications on file prior to visit. General Medical Exam: General: Well-nourished appearing, NAD. 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 Also ask your home dolphin trainer about a device for this as well. 2. Meet w/ Denice re: EMG results and next steps 3. Continue being active, healthy, and driven-- but careful at the same time! 4. We may consider Occupational Therapy for help w/ fine motor abiltiies and writing - I will look into any NeuroPT/OT that may be closer to you Follow up in ~3-6 mo I spent a total of 40 minutes on the date of service which included [id number] patient care and counseling and educating the patient/spouse. Laisha Lizarraga, MSN, LIDDER-C, CNRN CC: 1. No primary care provider on file., (fax) None * Arun Buenrostro MA - 10/13/2024 1:07 PM EST Lauren Alcaraz is a 84 year old year old woman accompanied by: patient and spouse. Do you have any changes or new concerns you would like to address at the visit today? Pt would liketo inform provider of her referral that was made. Vital Signs: LMP (LMP Unknown) [facility] History of Present illness Narrative* Anila De Paz MD - 10/08/2024 10:16 AM EST Images from the original note were not included. GENERAL SURGERY POST-OP CLINIC NOTE Patient Name: Lauren Alcaraz DATE: October 08, 2024 SURGERY: Lap PEHR, cholecystectomy, IOC, transcystic CBD exploration SURGERY DATE: 09/20/24. HPI: Lauren Alcaraz is a 84 year old female who presents for follow up after Lap primary PEHR, cholecystectomy, IOC, transcystic CBD exploration on 09/20/24. In brief, she is an 84 year old female who had a symptomatic paraesophageal hernia impacting her quality of life. During workup she was found to have dilated biliary ducts. She underwent EUS, and attempted ERCP but unable to cannulate the CBD. MRI did show some possible filling defects. Therefore lap franchesca, IOC, and CBD exploration was performed. She is 2.5 weeks s/p the OR. Since then she has been doing well. Just chronic back pain. She has been at a SNF. 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 Back pain Cancer (HCC) Chronic pain Complex partial seizures (HCC) Dementia (HCC) Depression DVT (deep venous thrombosis) (HCC) Dysphagia Frequent falls GERD (gastroesophageal reflux disease) Glaucoma suspect of both eyes Heart disease History of heart attack History of transient ischemic attack (TIA) Hypercholesterolemia Hypertension Low iron Presenile dementia, uncomplicated (HCC) Pseudophakia Pulmonary HTN (HCC) Restless leg syndrome Seizure (HCC) Thyroid disease TIA (transient ischemic attack) Tricuspid regurgitation PAST SURGICAL HISTORY: PAST SURGICAL HISTORY Procedure Laterality Date CC CORONARY STENT ~1989 PAST SURGICAL HISTORY OF Ablation T 11 PAST SURGICAL HISTORY OF hernia surgery PAST SURGICAL HISTORY OF hammer toe correction PAST SURGICAL HISTORY OF lumbar laminectomy PAST SURGICAL HISTORY OF carpal tunnel release PAST SURGICAL HISTORY OF tonsillectomy and adenoidectomy PAST SURGICAL HISTORY OF lumpectomy of left breast PAST SURGICAL HISTORY OF cardiac catheterization PAST SURGICAL HISTORY OF EGD PAST SURGICAL HISTORY OF colonoscopy PAST SURGICAL HISTORY OF ventral hernia repair PAST SURGICAL HISTORY OF cataract surgery PAST SURGICAL HISTORY OF appendectomy PAST SURGICAL HISTORY OF kyphoplasty REMV CATARACT EXTRACAP,INSERT LENS Bilateral FAMILY HISTORY: FAMILY HISTORY Problem Relation Age of Onset No Ocular Disease Mother Stroke Mother Arthritis Mother No Ocular Disease Father Heart Attack Father 40 Hypertension Father Alcohol abuse Father other (oth) Sister anemia Anesthesia Problems No Family History SOCIAL HISTORY: Social History Tobacco Use Smoking status: Never Smokeless tobacco: Never Vaping Use Vaping status: Never Used Substance Use Topics Alcohol use: Not Currently Drug use: Never MEDICATIONS: Prior to Admission Medications: pantoprazole DR (PROTONIX) 40 mg tablet Take 1 tablet by mouth once daily. OXYGEN, HOME THERAPY, Inhale 2 L/min as instructed as directed. With naps and at bedtime casanthranol/docusate sodium (DOCUSATE SODIUM WITH LAXATIVE ORAL) Take 1 tablet by mouth every other day. furosemide (LASIX) 20 mg tablet Take 0.5 tablets by mouth every afternoon. As needed potassium chloride ER (KLOR-CON) 20 mEq tablet Take 1 tablet by mouth once daily. brimonidine (ALPHAGAN) 0.2 % ophthalmic solution Use 1 Drop in both eyes two times a day. latanoprost (XALATAN) 0.005 % ophthalmic solution Use 1 Drop in both eyes daily at bedtime. d-mannose 500 mg capsule Take 500 mg by mouth once daily. donepezil (ARICEPT) 10 mg tablet Take 1 tablet by mouth daily with breakfast. gabapentin (NEURONTIN) 100 mg capsule Take 100 mg by mouth once daily as needed. traMADol (ULTRAM) 50 mg tablet Take 25 mg by mouth two times a day. famotidine (PEPCID) 10 mg tablet Take 10 mg by mouth twice daily. DODEX 1,000 mcg/mL Inject 1,000 mcg intramuscularly once every month. Vitamin D-90-mlshzegdjpnohb ammonium lactate (LAC-HYDRIN) 12 % lotion MULTIVITAMIN ORAL Take 1 tablet by mouth once daily. albuterol (PROVENTIL) 2.5 mg /3 mL (0.083 %) nebulizer solution Use 2.5 mg via nebulizer as needed. Lactobacillus acidophilus (PROBIOTIC) 10 billion cell cap Take 1 capsule by mouth once daily. pramipexole (MIRAPEX) 0.5 mg tablet Take 0.5 mg by mouth two times a day. vortioxetine (TRINTELLIX) 20 mg tablet Take 20 mg by mouth once daily. atorvastatin (LIPITOR) 40 mg tablet Take 40 mg by mouth once daily. ELIQUIS 5 mg tab(s) Take 5 mg by mouth two times a day. BID levothyroxine (SYNTHROID) 50 mcg tablet Take 50 mcg by mouth once daily. memantine (NAMENDA) 10 mg tablet Take 10 mg by mouth two times a day. MYRBETRIQ 50 mg Tb24 Take 50 mg by mouth once daily. nitroglycerin sublingual (NITROQUICK) 0.4 mg SL tablet as needed. aspirin, enteric coated (ASPIRIN, ENTERIC COATED) 81 mg EC tablet Take 81 mg by mouth once daily. tolterodine ER (DETROL LA) 4 mg 24 hr capsule Take 4 mg by mouth once daily. denosumab (PROLIA SUBCUTANEOUS) Inject 1 Dose subcutaneously once every 6 months. Last injection November 2020 lacosamide (VIMPAT) 100 mg tab Take 1 tablet by mouth twice daily for 180 days. ALLERGIES: ALLERGIES Allergen Reactions Propoxyphene N-Acet* Other: See Comments hallucinations Adhesive Tape-Silic* Unknown Other reaction(s): Other (comments) Not sure which type of tape but red skin. Doxycycline Vomiting Lamictal [Lamotrigi* Swelling Lips swelling Latex Rash Moxifloxacin Mental Status Change Percocet [Oxycodone* Mental Status Change Propoxyphene Mental Status Change, Other: See Comments Hallucinations Includes Darvocet Zolpidem Mental Status Change Adhesive Other: See Comments Not sure which type of tape but red skin. Diclofenac Sodium Other: See Comments Topical gel resulted in hand swelling. Oxycodone Mental Status Change PHYSICAL EXAM: BP 137/64 Pulse 68 Temp 36.8 C (98.2 F) (Oral) Ht 142.2 cm (4' 7.98) Wt 46.9 kg (103 lb 6.3 oz) LMP (LMP Unknown) BMI 23.19 kg/m General: AAOx3, no acute distress Head: atraumatic, normocephalic, no scleral icterus Neck: trachea midline, supple Pulm: breathing comfortably on room air, speaking full sentences CV: regular rate and rhythm Abdomen: soft, nontender, nondistended, incisions well appearing, skin glue intact MSK: no extremity swelling, moving all spontaneously DATA: Laboratory: No new labs Radiology: NA ASSESSMENT: Lauren Alcaraz is a 84 year old female with who presents for 2.5 week follow up of Lap primary PEHR, cholecystectomy, IOC, transcystic CBD exploration on 09/20/24. Doing well. At a SNF. No new complaints. Skin glue removed during visit. PLAN: - Diet as tolerated - 5mg of [place] q6hr for 2 weeks until follow up with pain mgmt - Follow up 4 weeks November MD [place] [facility] PGY2 I saw and evaluated the patient. Discussed with the resident and agree with resident's findings andplan as documented in the resident's note. Anila De Paz MD [facility] Note [facility]28[facility] Instructions* Patient Instructions* Brenda Moreland APRN.[employer] CENTRE MANAGER - 09/14/2024 2:02 PM EST PATIENT PREOPERATIVE INSTRUCTIONS Anila De Paz has scheduled you for your procedure at this surgery center: [facility] [place] [facility] Scheduling Office: [phone] --[address] [place] [id number]. Please read below carefully for your personalized instructions. Arrival Time for Surgery: - To obtain your arrival time for surgery, call your physician's office the day before your surgery. - If your surgery is scheduled for Friday, call the Friday before. Your surgeon s appointment scheduler will tell you what time to call the office. - If you have not reached the departmental appointment scheduler by 5 P.M., call [phone] after 5 P.M. the day before your surgery. Please be aware that emergency situations arise, which may delay or change your surgical time. If this happens, we will notify you as soon as possible and regret any inconvenience. Dietary Restrictions: - Nothing to eat or drink after midnight except for a sip of water with approved medications. - Do not drink any alcohol after midnight the night before your surgery. Medications: Unless instructed differently below, stay on all of your medications until your surgery. Pre-Surgery Med Instructions Medication Instructions casanthranol/docusate sodium (DOCUSATE SODIUM WITH LAXATIVE ORAL) Do not take the day of surgery furosemide (LASIX) 20 mg tablet Do not take the day of surgery potassium chloride ER (KLOR-CON) 20 mEq tablet Do not take the day of surgery d-mannose 500 mg capsule Do not take the day of surgery donepezil (ARICEPT) 10 mg tablet Take the day of surgery with a small sip of water gabapentin (NEURONTIN) 100 mg capsule Take the day of surgery with a small sip of water traMADol (ULTRAM) 50 mg tablet Take the day of surgery with a small sip of water famotidine (PEPCID) 10 mg tablet Take the day of surgery with a small sip of water MULTIVITAMIN ORAL Do not take the day of surgery albuterol (PROVENTIL) 2.5 mg /3 mL (0.083 %) nebulizer solution Use if needed day of surgery Lactobacillus acidophilus (PROBIOTIC) 10 billion cell cap Do not take the day of surgery pramipexole (MIRAPEX) 0.5 mg tablet Take the day of surgery with a small sip of water vortioxetine (TRINTELLIX) 20 mg tablet Take the day of surgery with a small sip of water atorvastatin (LIPITOR) 40 mg tablet Take the day of surgery with a small sip of water ELIQUIS 5 mg tab(s) Hold your Eliquis 2 days prior to your procedure. Last dose 09/17 levothyroxine (SYNTHROID) 50 mcg tablet Take the day of surgery with a small sip of water memantine (NAMENDA) 10 mg tablet Take the day of surgery with a small sip of water MYRBETRIQ 50 mg Tb24 Do not take the day of surgery lacosamide (VIMPAT) 100 mg tab Take the day of surgery with a small sip of water aspirin, enteric coated (ASPIRIN, ENTERIC COATED) 81 mg EC tablet Stop 1 days before surgery tolterodine ER (DETROL LA) 4 mg 24 hr capsule Do not take the day of surgery If you start any new medications after today's visit, please contact the surgeon's office. If you are currently using a [id number] injectable or oral medication for diabetes or weight loss such as Dulaglutide (Trulicity), Exenatide (Byetta, Bydureon), Liraglutide (Victoza, Saxenda), Semaglutide (Ozempic, Wegovy, Rybelsus), or Tirzepatide (Mounjaro), the medicine should be stopped at least 7 days before surgery. These medicines can cause food to remain in your stomach for a very longtime and increase the risks from surgery and anesthesia. Not stopping the medication for a long enough time may result in your surgery being rescheduled. Blood Thinning Medications: - Stop NSAIDS (Ibuprofen, Advil, Aleve, Motrin, Celebrex, Mobic, etc.) 7 days before surgery, as directed by your surgeon. - Stop ALL herbal and dietary supplements 7 days before surgery. - You may take Tylenol (Acetaminophen) or any of your pain medications that do not contain aspirin or NSAIDS as needed. Important Reminders: - If you are prescribed inhalers for breathing, continue using them. - Candy, mints, and tobacco products are NOT permitted the morning of surgery. - Hearing aids, dentures and glasses may be worn the morning of surgery. - NO jewelry, body piercings, makeup, hairpins, lotion or contacts are to be worn the day of surgery. If you develop symptoms such as a fever, cold, or flu, or have other changes to your health within TWO DAYS of scheduled surgery or the morning of surgery, please contact the surgery center above. Personal Belongings: -Please have photo ID and insurance cards. -If you do not have a copy of advance directives on file with us, please bring a copy with you on the day of surgery. - Leave ALL valuables and money at home or with family members. If you already have an Advance Directive, please fax a copy to [phone] or email to for it to be added to your chart. If you do not have an Advance Directive, you can find the appropriate form and more information at [email or web address]. We recommend that youcomplete the Advance Directive form found on the website and bring it with you the day of your surgery. It can be witnessed and scanned into your chart that day. Brenda Moreland APRN.CNP documented in this encounter[facility]01-28-[facility]25 History and physical note * Brenda Moreland APRN.CNP - 09/14/2024 1:52 PM EST Images from the original note were not included. [facility] HISTORY AND PHYSICAL EXAMINATION SERVICE DATE: 09/14/2024 SERVICE TIME: 1:52 PM PRIMARY CARE PHYSICIAN: Chema Perry MD Assessment Patient has the following medical conditions which may affect tiffany-operative course: Coronary artery disease due to lipid rich plaque Assessment: s/p multiple PCIs 2001, 2002, 2005 and 2006. -Following with Dr. Sourav Marcial, last OV 07/2024. I think she can proceed with her hiatal hernia surgery laparoscopically. - 05/2023 Stress Test - normal LV function with no evidence of ischemia ejection fraction of 89%. However, it was done with 69% of maximal Peritrate heart rate obtained. - Patient does report some chest heaviness but relates it to hiatal hernia. Has some dyspnea but reports is deconditioned. - Patient denies palpitations, lightheaded, dizziness or syncope. - Taking baby aspirin daily, will hold 1 day before surgery per Dr. Marcial. Chronic pain Assessment: Following with pain management, Dr. Bloom. Takes Tramadol BID. - Pain mostly in the back but has improved with medication. - Hasn't had surgery in a while but does not recall issues with post-op pain management. Does very well with repositioning and pillows. Reports she has a high tolerance for pain. Hypoglycemia Assessment: Reports 3 episodes over the past month where she feels very shaky. - She does not check her glucose at this time but just knows based on how she feels. History of complex partial epilepsy Assessment: Compliant and stable on Rx. - She reports it has been years since she has had a seizure episode. - Reports episodes consist of a blank stare and loss of train of thought. Restless legs syndrome Assessment: Taking Mirapex BID and Gabapentin PRN but feels like she needs Gabapentin daily. - Stable as long as she takes medication. History of DVT (deep vein thrombosis) Assessment: H/O RLE DVT in 2011. Does not recall precipitating event. Completed course of Coumadin. Bronchiectasis (HCC) Assessment: Uses PRN nebulizer typically only when sick or with a cold. - Does note some dyspnea but reports she is deconditioned. Ambulates with a walker, using wheel chair today. Reports she can still take a flight of stairs slowly without any undue SOB. - Lungs clear on today's exam. Oxygen saturation 96% on RA. Chest CT 06/2024: Coarse subpleural reticulation with associated traction bronchiectasis, traction bronchiolectasis and honeycombing cystic changes are present in the anterior LEFT upper lobe and lingula, compatible with radiation fibrosis. There is mild bronchiectasis in bilateral lower lobes with associated bronchial wall thickening and few curvilinear bands of scarring. Overactive bladder Assessment: Currently stable on Rx. Denies any acute urinary symptoms. Hypothyroidism Assessment: Compliant with Rx. Reports dosage has been pretty stable over the past year. TSH - 1.45 (01/2024). Hiatal hernia Assessment: Large, 10 cm on EGD yesterday. - Patient reports heaviness in chest, upper abdominal pain and regurgitation present. - Scheduled for repair. Essential hypertension Assessment: Compliant with Rx. Last 3 Encounter BP Readings: Date: BP: 09/14/2024 124/64 09/13/2024 191/91 09/13/2024 159/74 Hyperlipidemia Assessment: Compliant with Rx, following with cardiology and PCP. Obstructive sleep apnea syndrome Assessment: Does not use CPAP or BIPAP. Does sleep with supplemental oxygen, 2 L at night and with naps. - Reports oxygen saturation can sometimes go as low as 90 but will take deep breaths and can get itback up. Gastroesophageal reflux disease Assessment: Has regurgitation related to hiatal hernia. - Normal esophagus noted on 07/2024 EGD. - Compliant with Rx. 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 Latest Ref Rng 08/09/2024 Potassium 3.7 - 5.1 mmol/L 4.7 Iron deficiency anemia Assessment: Currently stable, last H&H WNL 07/2024. No current supplementation. History of malignant neoplasm of breast Assessment: s/p lumpectomy and radiation. 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) Assessment: Patient A&O x 3 at today's visit. Able to answer all questions appropriately and comprehend discussion had. - Compliant with Namenda and Donezepil. - Pleasant during today's visit History of pulmonary embolism Assessment: H/O PE in 2020. Patient does not recall precipitation event. No known clotting disorders. - Compliant with Eliquis - has OK to hold 2 days pre-op per Dr. Marcial. Pulmonary HTN (HCC) Assessment: Echo 06/2024 - Estimated right ventricular systolic pressure is 58 mmHg plus right atrial pressure. - Patient following with cardiology. - Has ERIS, bronchiectasis. Does wear oxygen during sleep. Tricuspid regurgitation Assessment: Moderate, 2+ TR on 06/2024 Echo. - Following with cardiology. Murmur heard on today's exam. - Patient denies palpitations or syncope. Does have some lightheadedness but relates to vestibular issues. Kyphosis Assessment: s/p surgery for kyphosis in the past. - Has severe curvature of spine, hunched over posture. History of transient ischemic attack (TIA) Assessment: Patient reports TIA episodes several years ago. - Denies any major CVA events. Depression Assessment: Patient currently being treated for depression, taking Trintellix. - Patient very pleasant and denies any current depression concerns today. [place] Activity Status Index: METS: Walk indoors, such as around the house (1.75 METs) Do light work around the house, such as dusting or washing dishes (2.70 METs) Take care of self; that is eating, dressing, bathing, using the toilet (2.75 METs) Walk a block or two on level ground (2.75 METs) Climb a flight of stairs or walk up a hill (5.50 METs) Cannot do yardwork, such as raking leaves, weeding, or pushing a power mower DASI Score: 15.45 Patient denies any chest pain or undue shortness of breath with the above physical activity. Patient is partially dependent. Clinical Frailty Scale: 4. Apparently vulnerable STOP-Bang Score: Snores loudly Often feels tired, fatigued, or sleepy during the daytime Has or is being treated for high blood pressure Patient over 50 years old Has not been observed to stop breathing or choking/gasping during sleep BMI less than or equal to 35 kg/m^2 Does not have a large neck Non-male patient STOP-Bang Score: 4 [id number] Score: Age: >=75 Sex: female CHF history: No Hypertension history: Yes Stroke/TIA/thromboembolism history: Yes Vascular disease history: Yes Diabetes history: No [id number] Score: 7 ARISCAT Score: Age: >80 Preoperative SpO2: >=96% Respiratory infection in the last month: No Preoperative anemia: No Surgical incision: upper abdominal Duration of surgery: >3 hrs Emergency procedure: No ARISCAT Score: 54 ANESTHESIA FINDINGS: Intubation History: No history of difficult intubation. No abnormal airway history Significant Anesthesia Considerations: Does better with fluids once IV is started. Did well with oxygen mask instead of nasal cannula with recent EGD potential slow emergence Airway History: No history of difficult airway No abnormal airway history I - PHYSICAL EVALUATION AIRWAY Patient intubated: No. Tracheostomy tube not present Mallampati: I. TM distance: >3 FB. Neck ROM: limited extension. Mouth opening: adequate. Short neck: no. Thick neck: no [place] present: no Lip Bite Test: II Microretrognathia/Micronagthia/Recessed Chin: No DENTAL Dental findings: teeth intact. Additional comments: Caps/Crowns. II - ANESTHESIA PLAN Beta Oxana Monitoring Plan Post Procedure Analgesic Plan Prepared for Surgery: optimally prepared for surgery, pending [see comment]. Labs CONSULTS: Patient does not require consults for optimization at this time Planned Anesthetic: anesthesia choice The Following Tests/Procedures Have Been Initiated: Orders Placed This Encounter Lipid Panel, Nonfasting Standing Status: Future Number of Occurrences: 1 Standing Expiration Date: 12/14/2024 OXYGEN, HOME THERAPY, Sig: Inhale 2 L/min as instructed as directed. With naps and at bedtime casanthranol/docusate sodium (DOCUSATE SODIUM WITH LAXATIVE ORAL) Sig: Take 1 tablet by mouth every other day. REASON FOR VISIT: Lauren Alcaraz is a 84 year old female who is scheduled for LAPAROSCOPIC RPR PARAESOHAGEAL HERNIA W/ FUNDOPLASTY +/- MESH at the request of Dr. Anila De Paz for consultation. My final recommendation will be communicated back to the requesting physician by way of shared medical record or letter. 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 Abnormality of Gait Multiple Falls Weakness Coronary Artery Disease Due to Lipid Rich Plaque Bilateral Leg Edema Bronchiectasis (Hcc) Gastroesophageal Reflux Disease Essential Hypertension History of Dvt (Deep Vein Thrombosis) Hyperlipidemia History of Malignant Neoplasm of Breast Hypothyroidism 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 Iron Deficiency Anemia Obstructive Sleep Apnea Syndrome Osteoporosis Overactive Bladder Restless Legs Syndrome History of Pulmonary Embolism Coronary Stent Patent Chronic Pain Hypoglycemia Hiatal Hernia Pulmonary Htn (Hcc) Tricuspid Regurgitation Kyphosis History of Transient Ischemic Attack (Tia) Depression COVID-19 Immunization Status Overdue - Covid-19 Vaccine () Overdue since 04/18/2024 05/22/2021 Imm Admin: COVID-19 original vaccine, age 12+ yr, monovalent (PFIZER- BIONTECH - PURPLE TOP) 10/28/2020 Imm Admin: COVID-19 original vaccine, age 12+ yr, monovalent (PFIZER- BIONTECH - PURPLE TOP) 10/07/2020 Imm Admin: COVID-19 original vaccine, age 12+ yr, monovalent (PFIZER- BIONTECH - PURPLE TOP) Only the first 3 history entries have been loaded, but more history exists. CHIEF COMPLAINT: Anesthesia Consult HPI: 84 year old female presents with hiatal hernia. Patient presents with at today's visit. She has abdominal pain, heaviness in her chest and regurgitation. She has to eat very little at a time and eats about 6 small meals per day. She does get hungry throughout the day. She reports her belching has gotten better. REVIEW OF SYSTEMS: General: No weight loss, malaise or fevers. Neurological: Positive for: impaired sensorium (Hands and feet), seizures and TIA. Negative for: headaches, multiple sclerosis and strokes. Respiratory: Positive for: dyspnea, home oxygen and obstructive sleep apnea. Negative for: asthma, bronchitis, COPD, current cough, orthopnea, pneumonia within 6 weeks and tobacco use. Cardiovascular: Positive for: CAD, chest pain (Heaviness 2/2 HH), DVT/PE, hyperlipidemia, hypertension and murmur/valvular heart disease Negative for: arrhythmia, atrial fibrillation, CHF and recent UT. GI: Positive for: abdominal pain and GERD Negative for: dysphagia, diverticulitis, GI bleed <30 days, hepatitis, irritable bowel syndrome,inflammatory bowel disease, liver disease, nausea, vomiting and ETOH >2 drinks/day. : Negative for: dysuria, hematuria, nephrolithiasis and renal failure. TORCH BRAZER: Negative for abnormal vaginal bleeding, abnormal vaginal discharge. Endocrine: Positive for: hypothyroidism. Negative for: diabetes mellitus and hyperthyroidism. Hematology: Positive for: bruises/bleeds easily and chronic anti-coagulation/platelet meds (ASA, Eliquis). Negative for: anemia, factor V Leiden, thrombocytopenia and von Willebrand disease. Oncology: (+) H/O breast cancer Psych: Positive for: depression. Negative for: anxiety. Musculoskeletal: Positive for: back pain (Kyphosis) and swelling. Skin: Negative for lesions, rash and itching. 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 Back pain Cancer (HCC) Chronic pain Complex partial seizures (HCC) Dementia (HCC) Depression DVT (deep venous thrombosis) (HCC) Dysphagia Frequent falls GERD (gastroesophageal reflux disease) Glaucoma suspect of both eyes Heart disease History of heart attack History of transient ischemic attack (TIA) Hypercholesterolemia Hypertension Low iron Presenile dementia, uncomplicated (HCC) Pseudophakia Pulmonary HTN (HCC) Restless leg syndrome Seizure (HCC) Thyroid disease TIA (transient ischemic attack) Tricuspid regurgitation PAST SURGICAL HISTORY Procedure Laterality Date CC CORONARY STENT ~1989 PAST SURGICAL HISTORY OF Ablation T 11 PAST SURGICAL HISTORY OF hernia surgery PAST SURGICAL HISTORY OF hammer toe correction PAST SURGICAL HISTORY OF lumbar laminectomy PAST SURGICAL HISTORY OF carpal tunnel release PAST SURGICAL HISTORY OF tonsillectomy and adenoidectomy PAST SURGICAL HISTORY OF lumpectomy of left breast PAST SURGICAL HISTORY OF cardiac catheterization PAST SURGICAL HISTORY OF EGD PAST SURGICAL HISTORY OF colonoscopy PAST SURGICAL HISTORY OF ventral hernia repair PAST SURGICAL HISTORY OF cataract surgery PAST SURGICAL HISTORY OF appendectomy PAST SURGICAL HISTORY OF kyphoplasty REMV CATARACT EXTRACAP,INSERT LENS Bilateral FAMILY HISTORY Problem Relation Age of Onset No Ocular Disease Mother Stroke Mother Arthritis Mother No Ocular Disease Father Heart Attack Father 40 Hypertension Father Alcohol abuse Father other (oth) Sister anemia Anesthesia Problems No Family History Social History Tobacco Use Smoking status: Never Smokeless tobacco: Never Vaping Use Vaping status: Never Used Substance Use Topics Alcohol use: Not Currently Drug use: Never Prior to Admission medications as of 09/14/24 1404 Medication Sig Last Dose Taking casanthranol/docusate sodium (DOCUSATE SODIUM WITH LAXATIVE ORAL) Take 1 tablet by mouth every other day. Taking Yes furosemide (LASIX) 20 mg tablet Take 0.5 tablets by mouth every afternoon. As needed Taking Yes potassium chloride ER (KLOR-CON) 20 mEq tablet Take 1 tablet by mouth once daily. Taking Yes d-mannose 500 mg capsule Take 500 mg by mouth once daily. Taking Yes donepezil (ARICEPT) 10 mg tablet Take 1 tablet by mouth daily with breakfast. Taking Yes gabapentin (NEURONTIN) 100 mg capsule Take 100 mg by mouth once daily as needed. Taking Yes traMADol (ULTRAM) 50 mg tablet Take 25 mg by mouth two times a day. Taking Yes famotidine (PEPCID) 10 mg tablet Take 10 mg by mouth twice daily. Taking Yes MULTIVITAMIN ORAL Take 1 tablet by mouth once daily. Taking Yes albuterol (PROVENTIL) 2.5 mg /3 mL (0.083 %) nebulizer solution Use 2.5 mg via nebulizer as needed.Taking Yes Lactobacillus acidophilus (PROBIOTIC) 10 billion cell cap Take 1 capsule by mouth once daily. Taking Yes pramipexole (MIRAPEX) 0.5 mg tablet Take 0.5 mg by mouth two times a day. Taking Yes vortioxetine (TRINTELLIX) 20 mg tablet Take 20 mg by mouth once daily. Taking Yes atorvastatin (LIPITOR) 40 mg tablet Take 40 mg by mouth once daily. Taking Yes ELIQUIS 5 mg tab(s) Take 5 mg by mouth two times a day. BID Taking Yes levothyroxine (SYNTHROID) 50 mcg tablet Take 50 mcg by mouth once daily. Taking Yes memantine (NAMENDA) 10 mg tablet Take 10 mg by mouth two times a day. Taking Yes MYRBETRIQ 50 mg Tb24 Take 50 mg by mouth once daily. Taking Yes lacosamide (VIMPAT) 100 mg tab Take 1 tablet by mouth twice daily for 180 days. Taking Yes nitroglycerin sublingual (NITROQUICK) 0.4 mg SL tablet as needed. Taking Yes aspirin, enteric coated (ASPIRIN, ENTERIC COATED) 81 mg EC tablet Take 81 mg by mouth once daily. Taking Yes tolterodine ER (DETROL LA) 4 mg 24 hr capsule Take 4 mg by mouth once daily. Taking Yes OXYGEN, HOME THERAPY, Inhale 2 L/min as instructed as directed. With naps and at bedtime brimonidine (ALPHAGAN) 0.2 % ophthalmic solution Use 1 Drop in both eyes two times a day. latanoprost (XALATAN) 0.005 % ophthalmic solution Use 1 Drop in both eyes daily at bedtime. DODEX 1,000 mcg/mL Inject 1,000 mcg intramuscularly once every month. Vitamin C-13-aznewempycyfas ammonium lactate (LAC-HYDRIN) 12 % lotion denosumab (PROLIA SUBCUTANEOUS) Inject 1 Dose subcutaneously once every 6 months. Last injection November 2020 No medication comments found. ALLERGIES Allergen Reactions Propoxyphene N-Acet* Other: See Comments hallucinations Adhesive Tape-Silic* Unknown Other reaction(s): Other (comments) Not sure which type of tape but red skin. Doxycycline Vomiting Lamictal [Lamotrigi* Swelling Lips swelling Latex Rash Moxifloxacin Mental Status Change Percocet [Oxycodone* Mental Status Change Propoxyphene Mental Status Change, Other: See Comments Hallucinations Includes Darvocet Zolpidem Mental Status Change Adhesive Other: See Comments Not sure which type of tape but red skin. Diclofenac Sodium Other: See Comments Topical gel resulted in hand swelling. Oxycodone Mental Status Change Objective PHYSICAL EXAM: General: alert and oriented and healthy appearance. Pertinent negatives noted - not distressed. Kyphotic posture. Skin: normal color, no rash or lesions. HEENT: pupils equal round and pupils reactive to light. Cardiovascular: Pulse characterized as regular.Positive for murmur. Pertinent negatives noted - no rub and no gallop. Findings of a 2/6 grade systolic heart murmur, low pitched with a blowing quality, and a location of: ULSB. Respiratory: normal breath sounds, no wheezes or crackles. No chest wall deformity or tenderness. Abdomen: Pertinent negatives noted - no hernia and no mass. Extremities: no deformity, no edema or tenderness, no joint swelling or clubbing. Neurological: Normal cognition, in wheel chair during exam. PAIN ASSESSMENT: VITALS: BP 124/64 Pulse 71 Temp (Src) 98.3 (Temporal) Resp 12 Ht 4' 7 (1.40m) Wt 105 lb 6.4 oz (47.8kg) SpO2 96% BMI 24.50 kg/(m^2). Diagnostic tests reviewed for today's visit: Lab Value Units Date High Low HB 11.2 g/dL 09/14/2024 15.5 11.5 HCT 34.6 % 09/14/2024 46.0 36.0 WBC 5.48 k/uL 09/14/2024 11.00 3.70 PLT 148 k/uL 09/14/2024 400 150 NA 140 mmol/L 09/14/2024 144 136 K 4.1 mmol/L 09/14/2024 5.1 3.7 GLUC 92 mg/dL 09/14/2024 99 74 BUN 34 mg/dL 09/14/2024 21 7 CREAT 0.99 mg/dL 09/14/2024 0.96 0.58 PTSEC No results within date range. INR No results within date range. APTT No results within date range. ALT 15 U/L 09/14/2024 38 7 AST 20 U/L 09/14/2024 35 13 TBILI 0.3 mg/dL 09/14/2024 1.3 0.2 TSH No results within date range. Lab Value Units Date High Low HCGQT No results within date range. UHCG No results within date range. HCG, BODY* No results within date range. Lab Value Units Date High Low ABORHD No results within date range. ABSCREEN No results within date range. No results found for: HBA1C Recent Results (from the past 8760 hour(s)) ECG COMPLETE Collection Time: 08/03/24 3:41 PM Result Value Ventricular Rate 75 Atrial Rate 75 P-R Interval 188 QRS Duration 78 QT Interval 402 QTC Calculation (Bazett) 448 Calculated P Ailey 42 Calculated R Ailey -38 Calculated T Ailey 49 Impression NORMAL SINUS RHYTHM LEFT AXIS DEVIATION POOR R WAVE PROGRESSION INFERIOR MYOCARDIAL INFARCTION , AGE UNDETERMINED ABNORMAL ECG Confirmed by MD DUNG, QARAB ([id number]), production editor TONYA IVEY ([id number]) on 08/03/2024 4:15:08 PM Recent Results (from the past 65908 hour(s)) ECHO Collection Time: 07/09/24 11:20 AM Impression CONCLUSIONS: - Technically difficult exam due to body habitus. - Exam indication: Chest Pain - The left ventricle is normal in size. There is mild upper septal left ventricular hypertrophy. Left ventricular systolic function is normal. EF = 59 5% (2D biplane). Indeterminate left ventricular diastolic function. - The right ventricle is normal in size. Right ventricular systolic function is normal. - There is moderate (2+) tricuspid valve regurgitation. - Estimated right ventricular systolic pressure is 58 mmHg plus right atrial pressure. Estimated right atrial pressure is not included as the IVC was not seen. - The patient has not had a prior CC echocardiographic exam for comparison. * * * Final * * * Instructions Given to Patient: Instructions located in the after visit summary. Patient given verbal and written preop instructions and voices comprehension and compliance. I spent a total of 90 minutes on the date of the service which included preparing to see the patient, [id number] patient care, completing clinical documentation, obtaining and/or reviewing separately obtained history, performing a medically appropriate examination, counseling and educating the pat ient/family/caregiver, and ordering medications, tests, or procedures. SIGNATURE: Brenda Moreland APRN.CNP PATIENT NAME: Lauren Alcaraz DATE: September 14, 2024 TIME: 1:52 PM PAGER/CONTACT #: [id number] History and physical note* Brenda Moreland APRN.CNP - 09/14/2024 1:52 PM EST Images from the original note were not included. [facility] HISTORY AND PHYSICAL EXAMINATION SERVICE DATE: 09/14/2024 SERVICE TIME: 1:52 PM PRIMARY CARE PHYSICIAN: Chema Perry MD Assessment Patient has the following medical conditions which may affect tiffany-operative course: Coronary artery disease due to lipid rich plaque Assessment: s/p multiple PCIs 2001, 2002, 2005 and 2006. -Following with Dr. Sourav Marcial, last OV 07/2024. I think she can proceed with her hiatal hernia surgery laparoscopically. - 05/2023 Stress Test - normal LV function with no evidence of ischemia ejection fraction of 89%. However, it was done with 69% of maximal Peritrate heart rate obtained. - Patient does report some chest heaviness but relates it to hiatal hernia. Has some dyspnea but reports is deconditioned. - Patient denies palpitations, lightheaded, dizziness or syncope. - Taking baby aspirin daily, will hold 1 day before surgery per Dr. Marcial. Chronic pain Assessment: Following with pain management, Dr. Bloom. Takes Tramadol BID. - Pain mostly in the back but has improved with medication. - Hasn't had surgery in a while but does not recall issues with post-op pain management. Does very well with repositioning and pillows. Reports she has a high tolerance for pain. Hypoglycemia Assessment: Reports 3 episodes over the past month where she feels very shaky. - She does not check her glucose at this time but just knows based on how she feels. History of complex partial epilepsy Assessment: Compliant and stable on Rx. - She reports it has been years since she has had a seizure episode. - Reports episodes consist of a blank stare and loss of train of thought. Restless legs syndrome Assessment: Taking Mirapex BID and Gabapentin PRN but feels like she needs Gabapentin daily. - Stable as long as she takes medication. History of DVT (deep vein thrombosis) Assessment: H/O RLE DVT in 2011. Does not recall precipitating event. Completed course of Coumadin. Bronchiectasis (HCC) Assessment: Uses PRN nebulizer typically only when sick or with a cold. - Does note some dyspnea but reports she is deconditioned. Ambulates with a walker, using wheel chair today. Reports she can still take a flight of stairs slowly without any undue SOB. - Lungs clear on today's exam. Oxygen saturation 96% on RA. Chest CT 06/2024: Coarse subpleural reticulation with associated traction bronchiectasis, traction bronchiolectasis and honeycombing cystic changes are present in the anterior LEFT upper lobe and lingula, compatible with radiation fibrosis. There is mild bronchiectasis in bilateral lower lobes with associated bronchial wall thickening and few curvilinear bands of scarring. Overactive bladder Assessment: Currently stable on Rx. Denies any acute urinary symptoms. Hypothyroidism Assessment: Compliant with Rx. Reports dosage has been pretty stable over the past year. TSH - 1.45 (01/2024). Hiatal hernia Assessment: Large, 10 cm on EGD yesterday. - Patient reports heaviness in chest, upper abdominal pain and regurgitation present. - Scheduled for repair. Essential hypertension Assessment: Compliant with Rx. Last 3 Encounter BP Readings: Date: BP: 09/14/2024 124/64 09/13/2024 191/91 09/13/2024 159/74 Hyperlipidemia Assessment: Compliant with Rx, following with cardiology and PCP. Obstructive sleep apnea syndrome Assessment: Does not use CPAP or BIPAP. Does sleep with supplemental oxygen, 2 L at night and with naps. - Reports oxygen saturation can sometimes go as low as 90 but will take deep breaths and can get itback up. Gastroesophageal reflux disease Assessment: Has regurgitation related to hiatal hernia. - Normal esophagus noted on 07/2024 EGD. - Compliant with Rx. 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 Latest Ref Rng 08/09/2024 Potassium 3.7 - 5.1 mmol/L 4.7 Iron deficiency anemia Assessment: Currently stable, last H&H WNL 07/2024. No current supplementation. History of malignant neoplasm of breast Assessment: s/p lumpectomy and radiation. 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) Assessment: Patient A&O x 3 at today's visit. Able to answer all questions appropriately and comprehend discussion had. - Compliant with Namenda and Donezepil. - Pleasant during today's visit History of pulmonary embolism Assessment: H/O PE in 2020. Patient does not recall precipitation event. No known clotting disorders. - Compliant with Eliquis - has OK to hold 2 days pre-op per Dr. Marcial. Pulmonary HTN (HCC) Assessment: Echo 06/2024 - Estimated right ventricular systolic pressure is 58 mmHg plus right atrial pressure. - Patient following with cardiology. - Has ERIS, bronchiectasis. Does wear oxygen during sleep. Tricuspid regurgitation Assessment: Moderate, 2+ TR on 06/2024 Echo. - Following with cardiology. Murmur heard on today's exam. - Patient denies palpitations or syncope. Does have some lightheadedness but relates to vestibular issues. Kyphosis Assessment: s/p surgery for kyphosis in the past. - Has severe curvature of spine, hunched over posture. History of transient ischemic attack (TIA) Assessment: Patient reports TIA episodes several years ago. - Denies any major CVA events. Depression Assessment: Patient currently being treated for depression, taking Trintellix. - Patient very pleasant and denies any current depression concerns today. [place] Activity Status Index: METS: Walk indoors, such as around the house (1.75 METs) Do light work around the house, such as dusting or washing dishes (2.70 METs) Take care of self; that is eating, dressing, bathing, using the toilet (2.75 METs) Walk a block or two on level ground (2.75 METs) Climb a flight of stairs or walk up a hill (5.50 METs) Cannot do yardwork, such as raking leaves, weeding, or pushing a power mower DASI Score: 15.45 Patient denies any chest pain or undue shortness of breath with the above physical activity. Patient is partially dependent. Clinical Frailty Scale: 4. Apparently vulnerable STOP-Bang Score: Snores loudly Often feels tired, fatigued, or sleepy during the daytime Has or is being treated for high blood pressure Patient over 50 years old Has not been observed to stop breathing or choking/gasping during sleep BMI less than or equal to 35 kg/m^2 Does not have a large neck Non-male patient STOP-Bang Score: 4 [id number] Score: Age: >=75 Sex: female CHF history: No Hypertension history: Yes Stroke/TIA/thromboembolism history: Yes Vascular disease history: Yes Diabetes history: No [id number] Score: 7 ARISCAT Score: Age: >80 Preoperative SpO2: >=96% Respiratory infection in the last month: No Preoperative anemia: No Surgical incision: upper abdominal Duration of surgery: >3 hrs Emergency procedure: No ARISCAT Score: 54 ANESTHESIA FINDINGS: Intubation History: No history of difficult intubation. No abnormal airway history Significant Anesthesia Considerations: Does better with fluids once IV is started. Did well with oxygen mask instead of nasal cannula with recent EGD potential slow emergence Airway History: No history of difficult airway No abnormal airway history I - PHYSICAL EVALUATION AIRWAY Patient intubated: No. Tracheostomy tube not present Mallampati: I. TM distance: >3 FB. Neck ROM: limited extension. Mouth opening: adequate. Short neck: no. Thick neck: no [place] present: no Lip Bite Test: II Microretrognathia/Micronagthia/Recessed Chin: No DENTAL Dental findings: teeth intact. Additional comments: Caps/Crowns. II - ANESTHESIA PLAN Beta Oxana Monitoring Plan Post Procedure Analgesic Plan Prepared for Surgery: optimally prepared for surgery, pending [see comment]. Labs CONSULTS: Patient does not require consults for optimization at this time Planned Anesthetic: anesthesia choice The Following Tests/Procedures Have Been Initiated: Orders Placed This Encounter Lipid Panel, Nonfasting Standing Status: Future Number of Occurrences: 1 Standing Expiration Date: 12/14/2024 OXYGEN, HOME THERAPY, Sig: Inhale 2 L/min as instructed as directed. With naps and at bedtime casanthranol/docusate sodium (DOCUSATE SODIUM WITH LAXATIVE ORAL) Sig: Take 1 tablet by mouth every other day. REASON FOR VISIT: Lauren Alcaraz is a 84 year old female who is scheduled for LAPAROSCOPIC RPR PARAESOHAGEAL HERNIA W/ FUNDOPLASTY +/- MESH at the request of Dr. Anila De Paz for consultation. My final recommendation will be communicated back to the requesting physician by way of shared medical record or letter. 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 Abnormality of Gait Multiple Falls Weakness Coronary Artery Disease Due to Lipid Rich Plaque Bilateral Leg Edema Bronchiectasis (Hcc) Gastroesophageal Reflux Disease Essential Hypertension History of Dvt (Deep Vein Thrombosis) Hyperlipidemia History of Malignant Neoplasm of Breast Hypothyroidism 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 Iron Deficiency Anemia Obstructive Sleep Apnea Syndrome Osteoporosis Overactive Bladder Restless Legs Syndrome History of Pulmonary Embolism Coronary Stent Patent Chronic Pain Hypoglycemia Hiatal Hernia Pulmonary Htn (Hcc) Tricuspid Regurgitation Kyphosis History of Transient Ischemic Attack (Tia) Depression COVID-19 Immunization Status Overdue - Covid-19 Vaccine ( season) Overdue since 04/18/2024 05/22/2021 Imm Admin: COVID-19 original vaccine, age 12+ yr, monovalent (PFIZER- BIONTECH - PURPLE TOP) 10/28/2020 Imm Admin: COVID-19 original vaccine, age 12+ yr, monovalent (PFIZER- BIONTECH - PURPLE TOP) 10/07/2020 Imm Admin: COVID-19 original vaccine, age 12+ yr, monovalent (PFIZER- BIONTECH - PURPLE TOP) Only the first 3 history entries have been loaded, but more history exists. CHIEF COMPLAINT: Anesthesia Consult HPI: 84 year old female presents with hiatal hernia. Patient presents with at today's visit. She has abdominal pain, heaviness in her chest and regurgitation. She has to eat very little at a time and eats about 6 small meals per day. She does get hungry throughout the day. She reports her belching has gotten better. REVIEW OF SYSTEMS: General: No weight loss, malaise or fevers. Neurological: Positive for: impaired sensorium (Hands and feet), seizures and TIA. Negative for: headaches, multiple sclerosis and strokes. Respiratory: Positive for: dyspnea, home oxygen and obstructive sleep apnea. Negative for: asthma, bronchitis, COPD, current cough, orthopnea, pneumonia within 6 weeks and tobacco use. Cardiovascular: Positive for: CAD, chest pain (Heaviness 2/2 HH), DVT/PE, hyperlipidemia, hypertension and murmur/valvular heart disease Negative for: arrhythmia, atrial fibrillation, CHF and recent UT. GI: Positive for: abdominal pain and GERD Negative for: dysphagia, diverticulitis, GI bleed <30 days, hepatitis, irritable bowel syndrome,inflammatory bowel disease, liver disease, nausea, vomiting and ETOH >2 drinks/day. : Negative for: dysuria, hematuria, nephrolithiasis and renal failure. TORCH BRAZER: Negative for abnormal vaginal bleeding, abnormal vaginal discharge. Endocrine: Positive for: hypothyroidism. Negative for: diabetes mellitus and hyperthyroidism. Hematology: Positive for: bruises/bleeds easily and chronic anti-coagulation/platelet meds (ASA, Eliquis). Negative for: anemia, factor V Leiden, thrombocytopenia and von Willebrand disease. Oncology: (+) H/O breast cancer Psych: Positive for: depression. Negative for: anxiety. Musculoskeletal: Positive for: back pain (Kyphosis) and swelling. Skin: Negative for lesions, rash and itching. 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 Back pain Cancer (HCC) Chronic pain Complex partial seizures (HCC) Dementia (HCC) Depression DVT (deep venous thrombosis) (HCC) Dysphagia Frequent falls GERD (gastroesophageal reflux disease) Glaucoma suspect of both eyes Heart disease History of heart attack History of transient ischemic attack (TIA) Hypercholesterolemia Hypertension Low iron Presenile dementia, uncomplicated (HCC) Pseudophakia Pulmonary HTN (HCC) Restless leg syndrome Seizure (HCC) Thyroid disease TIA (transient ischemic attack) Tricuspid regurgitation PAST SURGICAL HISTORY Procedure Laterality Date CC CORONARY STENT ~1989 PAST SURGICAL HISTORY OF Ablation T 11 PAST SURGICAL HISTORY OF hernia surgery PAST SURGICAL HISTORY OF hammer toe correction PAST SURGICAL HISTORY OF lumbar laminectomy PAST SURGICAL HISTORY OF carpal tunnel release PAST SURGICAL HISTORY OF tonsillectomy and adenoidectomy PAST SURGICAL HISTORY OF lumpectomy of left breast PAST SURGICAL HISTORY OF cardiac catheterization PAST SURGICAL HISTORY OF EGD PAST SURGICAL HISTORY OF colonoscopy PAST SURGICAL HISTORY OF ventral hernia repair PAST SURGICAL HISTORY OF cataract surgery PAST SURGICAL HISTORY OF appendectomy PAST SURGICAL HISTORY OF kyphoplasty REMV CATARACT EXTRACAP,INSERT LENS Bilateral FAMILY HISTORY Problem Relation Age of Onset No Ocular Disease Mother Stroke Mother Arthritis Mother No Ocular Disease Father Heart Attack Father 40 Hypertension Father Alcohol abuse Father other (oth) Sister anemia Anesthesia Problems No Family History Social History Tobacco Use Smoking status: Never Smokeless tobacco: Never Vaping Use Vaping status: Never Used Substance Use Topics Alcohol use: Not Currently Drug use: Never Prior to Admission medications as of 09/14/24 1404 Medication Sig Last Dose Taking casanthranol/docusate sodium (DOCUSATE SODIUM WITH LAXATIVE ORAL) Take 1 tablet by mouth every other day. Taking Yes furosemide (LASIX) 20 mg tablet Take 0.5 tablets by mouth every afternoon. As needed Taking Yes potassium chloride ER (KLOR-CON) 20 mEq tablet Take 1 tablet by mouth once daily. Taking Yes d-mannose 500 mg capsule Take 500 mg by mouth once daily. Taking Yes donepezil (ARICEPT) 10 mg tablet Take 1 tablet by mouth daily with breakfast. Taking Yes gabapentin (NEURONTIN) 100 mg capsule Take 100 mg by mouth once daily as needed. Taking Yes traMADol (ULTRAM) 50 mg tablet Take 25 mg by mouth two times a day. Taking Yes famotidine (PEPCID) 10 mg tablet Take 10 mg by mouth twice daily. Taking Yes MULTIVITAMIN ORAL Take 1 tablet by mouth once daily. Taking Yes albuterol (PROVENTIL) 2.5 mg /3 mL (0.083 %) nebulizer solution Use 2.5 mg via nebulizer as needed.Taking Yes Lactobacillus acidophilus (PROBIOTIC) 10 billion cell cap Take 1 capsule by mouth once daily. Taking Yes pramipexole (MIRAPEX) 0.5 mg tablet Take 0.5 mg by mouth two times a day. Taking Yes vortioxetine (TRINTELLIX) 20 mg tablet Take 20 mg by mouth once daily. Taking Yes atorvastatin (LIPITOR) 40 mg tablet Take 40 mg by mouth once daily. Taking Yes ELIQUIS 5 mg tab(s) Take 5 mg by mouth two times a day. BID Taking Yes levothyroxine (SYNTHROID) 50 mcg tablet Take 50 mcg by mouth once daily. Taking Yes memantine (NAMENDA) 10 mg tablet Take 10 mg by mouth two times a day. Taking Yes MYRBETRIQ 50 mg Tb24 Take 50 mg by mouth once daily. Taking Yes lacosamide (VIMPAT) 100 mg tab Take 1 tablet by mouth twice daily for 180 days. Taking Yes nitroglycerin sublingual (NITROQUICK) 0.4 mg SL tablet as needed. Taking Yes aspirin, enteric coated (ASPIRIN, ENTERIC COATED) 81 mg EC tablet Take 81 mg by mouth once daily. Taking Yes tolterodine ER (DETROL LA) 4 mg 24 hr capsule Take 4 mg by mouth once daily. Taking Yes OXYGEN, HOME THERAPY, Inhale 2 L/min as instructed as directed. With naps and at bedtime brimonidine (ALPHAGAN) 0.2 % ophthalmic solution Use 1 Drop in both eyes two times a day. latanoprost (XALATAN) 0.005 % ophthalmic solution Use 1 Drop in both eyes daily at bedtime. DODEX 1,000 mcg/mL Inject 1,000 mcg intramuscularly once every month. Vitamin A-15-[id number] ammonium lactate (LAC-HYDRIN) 12 % lotion denosumab (PROLIA SUBCUTANEOUS) Inject 1 Dose subcutaneously once every 6 months. Last injection November 2020 No medication comments found. ALLERGIES Allergen Reactions Propoxyphene N-Acet* Other: See Comments hallucinations Adhesive Tape-Silic* Unknown Other reaction(s): Other (comments) Not sure which type of tape but red skin. Doxycycline Vomiting Lamictal [Lamotrigi* Swelling Lips swelling Latex Rash Moxifloxacin Mental Status Change Percocet [Oxycodone* Mental Status Change Propoxyphene Mental Status Change, Other: See Comments Hallucinations Includes Darvocet Zolpidem Mental Status Change Adhesive Other: See Comments Not sure which type of tape but red skin. Diclofenac Sodium Other: See Comments Topical gel resulted in hand swelling. Oxycodone Mental Status Change Objective PHYSICAL EXAM: General: alert and oriented and healthy appearance. Pertinent negatives noted - not distressed. Kyphotic posture. Skin: normal color, no rash or lesions. HEENT: pupils equal round and pupils reactive to light. Cardiovascular: Pulse characterized as regular.Positive for murmur. Pertinent negatives noted - no rub and no gallop. Findings of a 2/6 grade systolic heart murmur, low pitched with a blowing quality, and a location of: ULSB. Respiratory: normal breath sounds, no wheezes or crackles. No chest wall deformity or tenderness. Abdomen: Pertinent negatives noted - no hernia and no mass. Extremities: no deformity, no edema or tenderness, no joint swelling or clubbing. Neurological: Normal cognition, in wheel chair during exam. PAIN ASSESSMENT: VITALS: BP 124/64 Pulse 71 Temp (Src) 98.3 (Temporal) Resp 12 Ht 4' 7 (1.40m) Wt 105 lb 6.4 oz (47.8kg) SpO2 96% BMI 24.50 kg/(m^2). Diagnostic tests reviewed for today's visit: Lab Value Units Date High Low HB 11.2 g/dL 09/14/2024 15.5 11.5 HCT 34.6 % 09/14/2024 46.0 36.0 WBC 5.48 k/uL 09/14/2024 11.00 3.70 PLT 148 k/uL 09/14/2024 400 150 NA 140 mmol/L 09/14/2024 144 136 K 4.1 mmol/L 09/14/2024 5.1 3.7 GLUC 92 mg/dL 09/14/2024 99 74 BUN 34 mg/dL 09/14/2024 21 7 CREAT 0.99 mg/dL 09/14/2024 0.96 0.58 PTSEC No results within date range. INR No results within date range. APTT No results within date range. ALT 15 U/L 09/14/2024 38 7 AST 20 U/L 09/14/2024 35 13 TBILI 0.3 mg/dL 09/14/2024 1.3 0.2 TSH No results within date range. Lab Value Units Date High Low HCGQT No results within date range. UHCG No results within date range. HCG, BODY* No results within date range. Lab Value Units Date High Low ABORHD No results within date range. ABSCREEN No results within date range. No results found for: HBA1C Recent Results (from the past 8760 hour(s)) ECG COMPLETE Collection Time: 08/03/24 3:41 PM Result Value Ventricular Rate 75 Atrial Rate 75 P-R Interval 188 QRS Duration 78 QT Interval 402 QTC Calculation (Bazett) 448 Calculated P Ailey 42 Calculated R Ailey -38 Calculated T Ailey 49 Impression NORMAL SINUS RHYTHM LEFT AXIS DEVIATION POOR R WAVE PROGRESSION INFERIOR MYOCARDIAL INFARCTION , AGE UNDETERMINED ABNORMAL ECG Confirmed by MD DUNG, SOURAV ([id number]), production editor TONYA IVEY ([id number]) on 08/03/2024 4:15:08 PM Recent Results (from the past 47881 hour(s)) ECHO Collection Time: 07/09/24 11:20 AM Impression CONCLUSIONS: - Technically difficult exam due to body habitus. - Exam indication: Chest Pain - The left ventricle is normal in size. There is mild upper septal left ventricular hypertrophy. Left ventricular systolic function is normal. EF = 59 5% (2D biplane). Indeterminate left ventricular diastolic function. - The right ventricle is normal in size. Right ventricular systolic function is normal. - There is moderate (2+) tricuspid valve regurgitation. - Estimated right ventricular systolic pressure is 58 mmHg plus right atrial pressure. Estimated right atrial pressure is not included as the IVC was not seen. - The patient has not had a prior CC echocardiographic exam for comparison. * * * Final * * * Instructions Given to Patient: Instructions located in the after visit summary. Patient given verbal and written preop instructions and voices comprehension and compliance. I spent a total of 90 minutes on the date of the service which included preparing to see the patient, [id number] patient care, completing clinical documentation, obtaining and/or reviewing separately obtained history, performing a medically appropriate examination, counseling and educating the pat ient/family/caregiver, and ordering medications, tests, or procedures. SIGNATURE: Brenda Moreland APRN.CNP PATIENT NAME: Lauren Alcaraz DATE: September 14, 2024 TIME: 1:52 PM PAGER/CONTACT #: [facility] Nurse Note* Ana Fuentes RN - 09/13/2024 2:39 PM EST 1439: Dr. Allie Su paged: Patient Lauren Alcaraz in post bed 12: FYI - BP = 180/88. Any furtherorders? Thanks! Nayely 1506: Dr. Su paged: Patient Lauren Alcaraz in post bed 12: Complaining of 5/10 headache withvision changes. Any further orders? Thanks! Nayely 1515: Dr. Toño Casillas made aware of 1506 page, orders placed. 1516: Dr. Allie Hoover at bedside, patient complaining of finger-like chest pressure, Dr. Hoover states that this is probably muscular pain, recommends Tylenol (previously ordered by Dr. Casillas). 1550: Dr. Hoover at bedside, states patient OK to discharge. Ana Fuentes RN BSN [facility]01-27-2025 Nurse Note* Ana Fuentes RN - 09/13/2024 2:39 PM EST 1439: Dr. Allie Su paged: Patient Lauren Alcaraz in post bed 12: FYI - BP = 180/88. Any furtherorders? Thanks! Nayely 1506: Dr. Su paged: Patient Lauren Alcaraz in post bed 12: Complaining of 5/10 headache withvision changes. Any further orders? Thanks! Nayely 1515: Dr. Toño Casillas made aware of 1506 page, orders placed. 1516: Dr. Allie Hoover at bedside, patient complaining of finger-like chest pressure, Dr. Hoover states that this is probably muscular pain, recommends Tylenol (previously ordered by Dr. Casillas). 1550: Dr. Hoover at bedside, states patient OK to discharge. Ana Fuentes RN BSN * Ana Fuentes RN - 09/13/2024 2:20 PM EST AMBULATORY PATIENT EDUCATION NOTE TOPIC: GI PROCEDURES: Endoscopic Retrograde Cholangiopancreatography (ERCP) with or without biopsy,stenting, dilation and/or treatment; Endoscopic Ultrasound (EUS) with or without Fine Needle Aspiration (FNA); Esophagogastroduodenoscopy (EGD) with or without biopies based on clinical findings, removal of polyps or lesions, for control of bleeding, dilation (any means), imaging, tube placement READINESS TO LEARN INSTRUCTION PROVIDED TO: Patient and family member COGNITIVE ABILITY: Alert and oriented PTED MOTIVATION TO LEARN: Interested FAMILY SUPPORT: High - Very involved in pt care IPATIENT LEARNS BEST BY: Individual Instruction Written Instruction - Hand-outs Verbal Instruction FACTORS AFFECTING LEARNING: None PHYSICAL LIMITATIONS AFFECTING LEARNING: None LEARNING RESPONSE METHOD OF INSTRUCTION: Individual instruction PATIENT / FAMILY RESPONSE: Verbalizes understanding of: WORSENING CONDITION- Signs and symptoms of aworsening condition that warrant a call to the physician FOLLOW-UP PLAN: Patient instructed to call with any further issues Recommend - Recommend continued instruction and follow up as directed Contact information given. SUPPLEMENTAL MATERIAL: Procedure Discharge Instructions REFERRAL (RECOMMENDATION): None * Tonya De Santiago RN - 09/13/2024 12:29 PM EST PRE OP LEARNING ASSESSMENT PROCEDURE/SURGERY: GI PROCEDURES: Colonoscopy and EGD READINESS TO LEARN COGNITIVE ABILITY: Alert and oriented MOTIVATION TO LEARN: Eager FAMILY SUPPORT: Moderate - Family present but overwhelmed PATIENT LEARNS BEST BY: Individual Instruction FACTORS AFFECTING LEARNING: None PHYSICAL LIMITATIONS AFFECTING LEARNING: None Electronically Signed By: Tonya De Santiago RN In Department: GASTROENTEROLOGY documented in [facility] Nurse Note* Ana Fuentes RN - 09/13/2024 2:20 PM EST AMBULATORY PATIENT EDUCATION NOTE TOPIC: GI PROCEDURES: Endoscopic Retrograde Cholangiopancreatography (ERCP) with or without biopsy,stenting, dilation and/or treatment; Endoscopic Ultrasound (EUS) with or without Fine Needle Aspiration (FNA); Esophagogastroduodenoscopy (EGD) with or without biopies based on clinical findings, removal of polyps or lesions, for control of bleeding, dilation (any means), imaging, tube placement READINESS TO LEARN INSTRUCTION PROVIDED TO: Patient and family member COGNITIVE ABILITY: Alert and oriented PTED MOTIVATION TO LEARN: Interested FAMILY SUPPORT: High - Very involved in pt care IPATIENT LEARNS BEST BY: Individual Instruction Written Instruction - Hand-outs Verbal Instruction FACTORS AFFECTING LEARNING: None PHYSICAL LIMITATIONS AFFECTING LEARNING: None LEARNING RESPONSE METHOD OF INSTRUCTION: Individual instruction PATIENT / FAMILY RESPONSE: Verbalizes understanding of: WORSENING CONDITION- Signs and symptoms of aworsening condition that warrant a call to the physician FOLLOW-UP PLAN: Patient instructed to call with any further issues Recommend - Recommend continued instruction and follow up as directed Contact information given. SUPPLEMENTAL MATERIAL: Procedure Discharge Instructions REFERRAL (RECOMMENDATION): None [facility]01-27-2025 NoteQ3 Patient Name: Lauren Alcaraz Procedure Date: 09/13/2024 12:35 PM Date of : 1940 Admit Type: Outpatient Age: 84 Gender: Female Note Status: Finalized Attending MD: Alisa Haile MD, [id number] Procedure: Upper EUS Indications: Dilated pancreatic duct on MRCP Providers: Alisa Haile MD, Arturo Olsen MD (Fellow) Patient Profile: This is an 84 year old female. Refer to note in patient chart for documentation of history and physical. Referring Physician: Susan Srinivasan (Referring ), Anila De Paz MD (Referring MD) Medicines: General Anesthesia Complications: No immediate complications. Estimated blood loss: Minimal. Requesting Provider: Procedure: Pre-Anesthesia Assessment: - Prior to the procedure, a History and Physical was performed, and patient medications and allergies were reviewed. The patient's tolerance of previous anesthesia was also reviewed. The risks and benefits of the procedure and the sedation options and risks were discussed with the patient. All questions were answered, and informed consent was obtained. Prior Anticoagulants: The patient has taken no anticoagulant or antiplatelet agents. ASA Grade Assessment: III - A patient with severe systemic disease. After reviewing the risks and benefits, the patient was deemed in satisfactory condition to undergo the procedure. After obtaining informed consent, the endoscope was passed under direct vision. Throughout the procedure, the patient's blood pressure, pulse, and oxygen saturations were monitored continuously. The Endoscope was introduced through the mouth, and advanced to the second part of duodenum. The Endoscope was introduced through the mouth, and advanced to the second part of duodenum. The upper EUS was accomplished without difficulty. The patient tolerated the procedure well. Moderate Sedation: General anesthesia was administered by the anesthesia team. Findings: ENDOSCOPIC FINDING: : Large 10 cm hiatal hernia was present. The entire examined stomach was endoscopically normal. The examined duodenum was endoscopically normal. ENDOSONOGRAPHIC FINDING: : The EUS scope was passed under a stiff guidewire due to challenging anatomy with the large hiatal hernia. The diameter of the main pancreatic duct (MPD) measured: - HOP 7 mm (head of pancreas) - BOP 4 mm (body of the pancreas) - TOP 2 mm (tail of the pancreas). There was no sign of significant endosonographic abnormality in the entire pancreas. No pathologic lymphadenopathy, no cysts, the pancreatic duct was well visualized from ampulla to tail. There was dilation in the common bile duct which measured up to 13 mm. Filling defects (sludge/diminutive stone) was visualized endosonographically in the common bile duct. It was hyperechoic. There was no sign of significant endosonographic abnormality in the ampulla. No masses were identified. Impression: - Large 10 cm hiatal hernia. - The EUS scope was passed into the stomach under a stiff guidewire due to challenging anatomy with the large hiatal hernia. - Main pancreatic duct (MPD) diameter was measured. - There was no sign of significant pathology in the entire pancreas. - There was dilation in the common bile duct which measured up to 13 mm and with fillings defects as detailed above in the distal CBD. - There was no sign of significant pathology in the ampulla endosonographically. - No specimens collected. Estimated Blood Loss: Estimated blood loss was minimal. Recommendation: - Discharge patient to home. Procedure Code(s): --- Professional --- 03194 Diagnosis Code(s): --- Professional --- K44.9 K80.50 K86.89 K83.8 CPT copyright 2020 [employer] (more content not included)...[employer] 09-13-2024 NoteQ3 Patient Name: Lauren Alcaraz Procedure Date: 09/13/2024 12:34 PM Date of : 1940 Admit Type: Outpatient Age: 84 Gender: Female Note Status: Finalized Attending MD: Alisa Haile MD, [id number] Procedure: ERCP Indications: Bile duct stone(s) Providers: Alisa Haile MD, Arturo Olsen MD (Fellow) Patient Profile: This is an 84 year old female. Refer to note in patient chart for documentation of history and physical. Referring Physician: Susan Srinivasan (Referring MD), Anila De Paz MD (Referring MD) Medicines: General Anesthesia Complications: No immediate complications. Requesting Provider: Procedure: Pre-Anesthesia Assessment: - Prior to the procedure, a History and Physical was performed, and patient medications, allergies and sensitivities were reviewed. The patient's tolerance of previous anesthesia was reviewed. - ASA Grade Assessment: III - A patient with severe systemic disease. After obtaining informed consent, the scope was passed under direct vision. Throughout the procedure, the patient's blood pressure, pulse, and oxygen saturations were monitored continuously. The Duodenoscope was introduced through the mouth, and advanced to the duodenum without successful cannulation. The ERCP was accomplished without difficulty. The patient tolerated the procedure well. Moderate Sedation: General anesthesia was administered by the anesthesia team. MAC anesthesia was administered by the anesthesia team. Findings: The optometrist/practice owner film was normal. Despite multiple attempts to position the scope well due to large hiatal hernia, and attempts to locate the major papilla, the major papilla was not found. Multiple advanced endoscopist called to the room and agreed with findings. Impression: - The major papilla was not found. Estimated Blood Loss: Estimated blood loss: none. Recommendation: - Discharge patient to home (ambulatory). - Resume previous diet today. - Repeat ERCP after hiatal hernia repair. Procedure Code(s): --- Professional --- 99870 Diagnosis Code(s): --- Professional --- K80.50 CPT copyright 2020 [employer]. All rights reserved. Attending Participation: I was present and participated during the entire procedure, including non-guillermo portions. Scope In: 1:37:28 PM Scope Out: 2:05:[address] Alisa Haile MD 09/13/2024 2:08:23 PM This report has been signed electronically by Alisa Haile MD Number of Addenda: 0 Note Initiated On: 09/13/2024 12:34 [id number] [facility] History and physical note* Arturo Olsen MD - 09/13/2024 1:00 PM EST PROCEDURAL SEDATION HISTORY AND PHYSICAL EXAM SERVICE DATE: 09/13/2024 SERVICE TIME: 1232 Subjective HPI: This is a 84 year old female who presents with Dilated PD and bile duct stone PAST ANESTHESIA HISTORY:No history of adverse event 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 Back pain Cancer (HCC) Complex partial seizures (HCC) Dementia (HCC) Depression DVT (deep venous thrombosis) (HCC) Dysphagia Frequent falls GERD (gastroesophageal reflux disease) Glaucoma suspect of both eyes Heart disease History of heart attack Hypercholesterolemia Hypertension Low iron Presenile dementia, uncomplicated (HCC) Pseudophakia Restless leg syndrome Seizure (HCC) Thyroid disease TIA (transient ischemic attack) PAST SURGICAL HISTORY Procedure Laterality Date CC CORONARY STENT ~1989 PAST SURGICAL HISTORY OF Ablation T 11 PAST SURGICAL HISTORY OF hernia surgery PAST SURGICAL HISTORY OF hammer toe correction PAST SURGICAL HISTORY OF lumbar laminectomy PAST SURGICAL HISTORY OF carpal tunnel release PAST SURGICAL HISTORY OF tonsillectomy and adenoidectomy PAST SURGICAL HISTORY OF lumpectomy of left breast PAST SURGICAL HISTORY OF cardiac catheterization PAST SURGICAL HISTORY OF EGD PAST SURGICAL HISTORY OF colonoscopy PAST SURGICAL HISTORY OF ventral hernia repair PAST SURGICAL HISTORY OF cataract surgery PAST SURGICAL HISTORY OF appendectomy PAST SURGICAL HISTORY OF kyphoplasty REMV CATARACT EXTRACAP,INSERT LENS Bilateral Prior to Admission medications as of 09/03/24 1423 Medication Sig Last Dose Taking furosemide (LASIX) 20 mg tablet Take 0.5 tablets by mouth every afternoon. As needed potassium chloride ER (KLOR-CON) 20 mEq tablet Take 1 tablet by mouth once daily. brimonidine (ALPHAGAN) 0.2 % ophthalmic solution Use 1 Drop in both eyes two times a day. latanoprost (XALATAN) 0.005 % ophthalmic solution Use 1 Drop in both eyes daily at bedtime. d-mannose 500 mg capsule Take 500 mg by mouth once daily. cetirizine (ZYRTEC) 10 mg tablet Take 10 mg by mouth once daily as needed. fluticasone (ALLERGY RELIEF, FLUTICASONE,) 50 mcg/actuation nasal spray Use 1 [place] in each nostrilonce daily. donepezil (ARICEPT) 10 mg tablet Take 1 tablet by mouth daily with breakfast. gabapentin (NEURONTIN) 100 mg capsule as needed. traMADol (ULTRAM) 50 mg tablet Take 25 mg by mouth two times a day. famotidine (PEPCID) 10 mg tablet Take 10 mg by mouth twice daily. DODEX 1,000 mcg/mL Inject 1,000 mcg intramuscularly once every month. Vitamin G-14-[id number] ammonium lactate (LAC-HYDRIN) 12 % lotion BD ECLIPSE LUER-BOZENA 3 mL 23 x 1 MULTIVITAMIN ORAL Take by mouth once daily. albuterol (PROVENTIL) 2.5 mg /3 mL (0.083 %) nebulizer solution as needed. Lactobacillus acidophilus (PROBIOTIC) 10 billion cell cap once daily. pramipexole (MIRAPEX) 0.5 mg tablet Take 0.5 mg by mouth two times a day. vortioxetine (TRINTELLIX) 20 mg tablet Take 20 mg by mouth once daily. atorvastatin (LIPITOR) 40 mg tablet Take 40 mg by mouth once daily. ELIQUIS 5 mg tab(s) Take 5 mg by mouth two times a day. BID levothyroxine (SYNTHROID) 50 mcg tablet Take 50 mcg by mouth once daily. memantine (NAMENDA) 10 mg tablet Take 10 mg by mouth two times a day. MYRBETRIQ 50 mg Tb24 Taking 2 tabs [...] every 6 months. Last injection November 2020 ALLERGIES Allergen Reactions Propoxyphene N-Acet* Other: See Comments hallucinations Adhesive Tape-Silic* Unknown Other reaction(s): Other (comments) Not sure which type of tape but red skin. Doxycycline Vomiting Lamictal [Lamotrigi* Swelling Lips swelling Latex Rash Moxifloxacin Mental Status Change Percocet [Oxycodone* Mental Status Change Propoxyphene Mental Status Change, Other: See Comments Hallucinations Includes Darvocet Zolpidem Mental Status Change Adhesive Other: See Comments Not sure which type of tape but red skin. Diclofenac Sodium Other: See Comments Topical gel resulted in hand swelling. Oxycodone Mental Status Change CARDIOVASCULAR:No chest pain, leg swelling and palpitations PULMONARY:No cough,wheezing and shortness of breath Objective PHYSICAL EXAM:The remainder of the physical exam is noncontributory AIRWAY: Airway Visualization of Uvula: Yes Mouth opening greater than 2 fingerbreadths: Yes Neck Full Range of Motion: Yes LUNGS: Lungs clear to auscultation CARDIAC: Regular rhythm,Regular rate Assessment/Plan ASA Class: III Patient OK for Sedation: Yes Sedation Goal: Anesthesia Provisional Diagnosis/Treatment Plan: Dilated PD and bile duct stone/ EUS and ERCP Sedation Goal: Anesthesia SIGNATURE: Arturo Olsen MD PATIENT NAME: Lauren Alcaraz DATE: September 13, 2024 TIME: 12:32 PM 2023 [facility] Work Phone: 1(214) 435-434801-27-2025 History and physical note* Arturo Olsen MD - 09/13/2024 1:00 PM EST PROCEDURAL SEDATION HISTORY AND PHYSICAL EXAM SERVICE DATE: 09/13/2024 SERVICE TIME: 1232 Subjective HPI: This is a 84 year old female who presents with Dilated PD and bile duct stone PAST ANESTHESIA HISTORY:No history of adverse event 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 Back pain Cancer (HCC) Complex partial seizures (HCC) Dementia (HCC) Depression DVT (deep venous thrombosis) (HCC) Dysphagia Frequent falls GERD (gastroesophageal reflux disease) Glaucoma suspect of both eyes Heart disease History of heart attack Hypercholesterolemia Hypertension Low iron Presenile dementia, uncomplicated (HCC) Pseudophakia Restless leg syndrome Seizure (HCC) Thyroid disease TIA (transient ischemic attack) PAST SURGICAL HISTORY Procedure Laterality Date CC CORONARY STENT ~1989 PAST SURGICAL HISTORY OF Ablation T 11 PAST SURGICAL HISTORY OF hernia surgery PAST SURGICAL HISTORY OF hammer toe correction PAST SURGICAL HISTORY OF lumbar laminectomy PAST SURGICAL HISTORY OF carpal tunnel release PAST SURGICAL HISTORY OF tonsillectomy and adenoidectomy PAST SURGICAL HISTORY OF lumpectomy of left breast PAST SURGICAL HISTORY OF cardiac catheterization PAST SURGICAL HISTORY OF EGD PAST SURGICAL HISTORY OF colonoscopy PAST SURGICAL HISTORY OF ventral hernia repair PAST SURGICAL HISTORY OF cataract surgery PAST SURGICAL HISTORY OF appendectomy PAST SURGICAL HISTORY OF kyphoplasty REMV CATARACT EXTRACAP,INSERT LENS Bilateral Prior to Admission medications as of 09/03/24 1423 Medication Sig Last Dose Taking furosemide (LASIX) 20 mg tablet Take 0.5 tablets by mouth every afternoon. As needed potassium chloride ER (KLOR-CON) 20 mEq tablet Take 1 tablet by mouth once daily. brimonidine (ALPHAGAN) 0.2 % ophthalmic solution Use 1 Drop in both eyes two times a day. latanoprost (XALATAN) 0.005 % ophthalmic solution Use 1 Drop in both eyes daily at bedtime. d-mannose 500 mg capsule Take 500 mg by mouth once daily. cetirizine (ZYRTEC) 10 mg tablet Take 10 mg by mouth once daily as needed. fluticasone (ALLERGY RELIEF, FLUTICASONE,) 50 mcg/actuation nasal spray Use 1 [place] in each nostrilonce daily. donepezil (ARICEPT) 10 mg tablet Take 1 tablet by mouth daily with breakfast. gabapentin (NEURONTIN) 100 mg capsule as needed. traMADol (ULTRAM) 50 mg tablet Take 25 mg by mouth two times a day. famotidine (PEPCID) 10 mg tablet Take 10 mg by mouth twice daily. DODEX 1,000 mcg/mL Inject 1,000 mcg intramuscularly once every month. Vitamin [id number]-69-hazadvyzikndbv ammonium lactate (LAC-HYDRIN) 12 % lotion BD ECLIPSE LUER-BOZENA 3 mL 23 x 1 MULTIVITAMIN ORAL Take by mouth once daily. albuterol (PROVENTIL) 2.5 mg /3 mL (0.083 %) nebulizer solution as needed. Lactobacillus acidophilus (PROBIOTIC) 10 billion cell cap once daily. pramipexole (MIRAPEX) 0.5 mg tablet Take 0.5 mg by mouth two times a day. vortioxetine (TRINTELLIX) 20 mg tablet Take 20 mg by mouth once daily. atorvastatin (LIPITOR) 40 mg tablet Take 40 mg by mouth once daily. ELIQUIS 5 mg tab(s) Take 5 mg by mouth two times a day. BID levothyroxine (SYNTHROID) 50 mcg tablet Take 50 mcg by mouth once daily. memantine (NAMENDA) 10 mg tablet Take 10 mg by mouth two times a day. MYRBETRIQ 50 mg Tb24 Taking 2 tabs [...] every 6 months. Last injection November 2020 ALLERGIES Allergen Reactions Propoxyphene N-Acet* Other: See Comments hallucinations Adhesive Tape-Silic* Unknown Other reaction(s): Other (comments) Not sure which type of tape but red skin. Doxycycline Vomiting Lamictal [Lamotrigi* Swelling Lips swelling Latex Rash Moxifloxacin Mental Status Change Percocet [Oxycodone* Mental Status Change Propoxyphene Mental Status Change, Other: See Comments Hallucinations Includes Darvocet Zolpidem Mental Status Change Adhesive Other: See Comments Not sure which type of tape but red skin. Diclofenac Sodium Other: See Comments Topical gel resulted in hand swelling. Oxycodone Mental Status Change CARDIOVASCULAR:No chest pain, leg swelling and palpitations PULMONARY:No cough,wheezing and shortness of breath Objective PHYSICAL EXAM:The remainder of the physical exam is noncontributory AIRWAY: Airway Visualization of Uvula: Yes Mouth opening greater than 2 fingerbreadths: Yes Neck Full Range of Motion: Yes LUNGS: Lungs clear to auscultation CARDIAC: Regular rhythm,Regular rate Assessment/Plan ASA Class: III Patient OK for Sedation: Yes Sedation Goal: Anesthesia Provisional Diagnosis/Treatment Plan: Dilated PD and bile duct stone/ EUS and ERCP Sedation Goal: Anesthesia SIGNATURE: Arturo Olsen MD PATIENT NAME: Lauren Alcaraz DATE: September 13, 2024 TIME: 12:32 PM Created 2023 documented [facility] Nurse Note* Tonya De Santiago RN - 09/13/2024 12:29 PM EST PRE OP LEARNING ASSESSMENT PROCEDURE/SURGERY: GI PROCEDURES: Colonoscopy and EGD READINESS TO LEARN COGNITIVE ABILITY: Alert and oriented MOTIVATION TO LEARN: Eager FAMILY SUPPORT: Moderate - Family present but overwhelmed PATIENT LEARNS BEST BY: Individual Instruction FACTORS AFFECTING LEARNING: None PHYSICAL LIMITATIONS AFFECTING LEARNING: None Electronically Signed By: Tonya De Santiago RN In Department: GASTROENTEROLOGY [facility]01-24-2025 [facility] History of Present illness Narrative* Nicolás Beltrán DO - 09/10/2024 11:46 AM EST UNIVERSAL PROTOCOL / SAFETY CHECKLIST Procedure to be Performed: EMG Sign In: A Moment of CARE was completed. Personnel directly involved with the procedure wore the appropriate PPE (Personal Protective Equipment). Patient/Surrogate Stated/Verified: PATIENT VERIFIED(optional for EMERGENT procedures): Patient name, Date of , Relevant allergies, and The intended procedure Time Out Communication: Intended patient and procedure match the source documents. Correct side/site marked and visible. Sign Out: SIGN OUT (optional for EMERGENT procedures): Post-procedure follow-up management communicated and Plan of Care Visit completed when applicable. Brenda Kramer, commercial loan administrator BDarío Beltrán DO documented in this encounterE[facility]01-23-2025 Telephone encounter Note * Telephone Encounter - Jacqueline Noland LPN - 09/09/2024 11:32 AM EST Images from [phone] request faxed to [facility] . [facility]01-23-2025 Miscellaneous Notes* Telephone Encounter - Jacqueline Noland LPN - 09/09/2024 11:32 AM EST Images from [phone] request faxed to [facility] . documented in this encounterE[facility]01-22-2025 Telephone encounter Note * Telephone Encounter - Taylor Forrest RN - 09/08/2024 2:34 PM EST Spoke with Lauren's Delroy- EUS is scheduled for Fri09/13/[address] Haile. Reviewed Instructions for Eliquis and Aspirin pre-op. Understands that Eliquis is to be held TWO days before surgery Aspirin only held for ONE day prior to surgery Sent updated mychart message. [facility]01-22-2025 Miscellaneous Notes* Telephone Encounter - Taylor Forrest RN - 09/08/2024 2:34 PM EST Spoke with Lauren's Delroy- EUS is scheduled for Fri09/13/[address] Haile. Reviewed Instructions for Eliquis and Aspirin pre-op. Understands that Eliquis is to be held TWO days before surgery Aspirin only held for ONE day prior to surgery Sent updated mychart message. documented in this encounterE[facility]01-22-2025 Telephone encounter Note * Telephone Encounter - Susan Srinivasan MD - 09/08/2024 1:51 PM EST Spoke with patient and spouse about MRI findings and that EUS was necessary. All Qs answered. They are willing to come on Friday for EUS Dr. Oumar Murray. Susan Srinivasan MD [facility] Work Phone: 1(289) 580-380701-22-2025 Miscellaneous Notes* Telephone Encounter - Susan Srinivasan MD - 09/08/2024 1:51 PM EST Spoke with patient and spouse about MRI findings and that EUS was necessary. All Qs answered. They are willing to come on Friday for EUS Dr. Oumar Murray. Susan Srinivasan MD documented in this encounter[facility]01[facility] History of Present illness Narrative* Jaqueline Costello RT(R) - 09/07/2024 9:30 AM EST Radiology Service Progress Note DATE OF SERVICE: September 07, 2024 TIME: 9:32 AM PATIENT IDENTITY VERIFICATION COMPLETED USING TWO (2) STANDARD IDENTIFIERS: Name and Date of confirmed by patient verbally. FALL SCREENING: Has the patient had 2 falls in the last year or 1 fall with injury or currently using an Ambulatory Assistive Device (Walker, Cane, Wheelchair, Crutches, etc.)? Yes, Patient High Riskfor Falls What interventions were put in place to prevent falls during this visit? Instructed Patient to Callfor Help if Needed, Offered Assistance with Transfers/Clothing, Instructed Patient to Remain Seated(Not on Exam Table) Until Exam, and Increased Observations by Caregivers PATIENT GENDER DATA: Assigned female at . status: : No status:NO. PATIENT RELEVANT IMPLANT DATA REVIEWED: Yes PATIENT PRESENTS WITH AN IMPLANTABLE OR ATTACHED ENTRY LEVEL SALES CONSULTANT: No ALLERGIES: Reviewed and unchanged CONTRAST ALLERGY: NO. EXAM: MRI - CONTRAST TYPE: GROUP II PERIPHERAL IV DATA: Ambulatory: A peripheral IV was started in the Left upper extremity with a Angio cath: 22 gauge. RADIOLOGY DEPARTMENT: MR; Exam(s) Completed: Body: Pancreas/Biliary SIGNATURE: RT Brice(R) PATIENT NAME: Lauren Alcaraz DATE: September 07, 2024 TIME: 9:32 AM documented in this encounterE[facility]01-21-[facility] Telephone encounter Note* Telephone Encounter - Joan Streeter RN - 09/07/2024 8:23 AM EST Liang De Paz, Please see Dr Marcial recommendation below re: asa hold pre-op can be only 1 day. Patient was instructed per My chart message on 09/03 from surgery team to hold aspirin 7 days pre-op. Are you ok to proceed with patient on asa until 1 day pre-op? Joan Nolasco [facility] Work Phone: [phone]) 361-919401-21-2025 Miscellaneous Notes* Telephone Encounter - Joan Streeter RN - 09/07/2024 8:23 AM EST Liang De Paz, Please see Dr Marcial recommendation below re: asa hold pre-op can be only 1 day. Patient was instructed per My chart message on 09/03 from surgery team to hold aspirin 7 days pre-op. Are you ok to proceed with patient on asa until 1 day pre-op? Joan Nolasco * Telephone Encounter - Sourav Marcial MD - 09/06/2024 5:50 PM EST She can hold aspirin only for 1 day prior to her surgery date as she had 2 coronary artery stents and cannot stop aspirin for any longer than 24 hours. * Telephone Encounter - Misty Reyes RN - 09/06/2024 2:07 PM EST SHELIA: 08/03/2024- Dung FOV: 02/01/2025- Dung Forward to Dr. Marcial. Please advise. * Telephone Encounter - Joan Streeter RN - 09/06/2024 1:36 PM EST Liang Valadez. Patient scheduled for LAPAROSCOPIC RPR PARAESOHAGEAL HERNIA W/ FUNDOPLASTY +/- MESH with Anila De Paz MD on 09/20/2024 Dr De Paz's team requested patient hold asa 7 days prior to DOS in addition to the 2 day Eliquishold you approved for her pre-op. Please advise if okay to hold asa 81 for 7 days prior to DOS. Joan Streeter RN- PACC documented in this encounterE[facility]01-20-2025 Telephone encounter Note * Telephone Encounter - Sourav Marcial MD - 09/06/2024 5:50 PM EST She can hold aspirin only for 1 day prior to her surgery date as she had 2 coronary artery stents and cannot stop aspirin for any longer than 24 hours. [facility]01-[facility] Telephone encounter Note* Telephone Encounter - Misty Reyes RN - 09/06/2024 2:07 PM EST SHELIA: 08/03/2024- Dung FOV: 02/01/2025- Dung Forward to Dr. Marcial. Please advise. [facility]01-[facility] Telephone encounter Note* Telephone Encounter - Joan Streeter RN - 09/06/2024 1:36 PM EST Liang Valadez. Patient scheduled for LAPAROSCOPIC RPR PARAESOHAGEAL HERNIA W/ FUNDOPLASTY +/- MESH with Anila De Paz MD on 09/20/2024 Dr De Paz's team requested patient hold asa 7 days prior to DOS in addition to the 2 day Eliquishold you approved for her pre-op. Please advise if okay to hold asa 81 for 7 days prior to DOS. Joan Streeter RN- PACC [facility]01-20-2025 [facility] History of Present illness Narrative* Joan Streeter RN - 09/06/2024 9:22 AM EST RN Pre Visit Questionnaire for upcoming PACC appointment PROCEDURE : LAPAROSCOPIC RPR PARAESOHAGEAL HERNIA W/ FUNDOPLASTY +/- MESH SURGEON : Anila De Paz MD PROCEDURE DATE : 09/20 PACC APPT : 09/15 Do you see a stock unloader, credit balance specialist, speech instructor or other specialist within or outside of [facility]? SPECIALISTS: CARDIOLOGY: Monogram Machine Operator Dr. Sourav Marcial , Last office visit 08/03 NEUROLOGY: Denice Jacobs PA-C OV 08/06/24 PRIMARY CARE PHYSICIAN: Chema Perry MD ([place]) OV 04/22/24 in scanned doc 05/14/24 [facility]: Tamiko Ku NP-[facility] OV 11/12/23 in scanned doc 07/19 Denies having sleep apnea, wears O2 at night GERD Complex partial seizures Dementia, aquired autoimmune encephalopathy TIA HTN DVT PE CAD NSTEMI 2001, stent x 2 (2001, 2006) Cardiac clearance per Dr Marcial in OV 08/03/24: I think she can proceed with her hiatal hernia surgery laparoscopically. Are you on an anticoagulant PACC Anticoagulant: Yes Medication : ASA 81 mg Eliquis (Apixaban) CHADVASC = na Stents: Yes, Coronary x2 Have you been provided instructions: Yes Letter sent : 09/[address] Marcial requesting ok to hold asa 7 d pre-op per surgery team request in [facility] 09/03 Anticoagulation recommendations : Found in OV on 08/03 and TE on 09/06 Provider : Dr Marcial Anticoagulation instructions : hold eliquis for 2 days prior to the hiatal hernia surgery. hold aspirin only for 1 day prior to her surgery Patient aware per TE 09/08 from Maria T Forrest RN Implanted Devices: Coronary stents x2 Most recent EK08/03/24 Most recent ECHO : 07/09/24 in scanned doc 07/19 Most recent STRESS TEST 05/29/23 in scanned doc 07/19 Most recent CARDIAC CATH: 09/2013 [facility] Most recent carotid duplex 12/02/23 in scanned doc 07/19: Display only: Laboratory Monitor ([id number]) on 08/03/2024 4:15 PM by Sourav Marcial MD Scan on 07/19/2024 4:02 PM by ProviderLorenzo PA-C: Echo Scan on 07/19/2024 3:59 PM by ProviderLorenzo PA-C: Stress Test Scan on 07/19/2024 4:02 PM by ProviderLorenzo PA-C: Miscellaneous Cardiac Any new changes in your symptoms since you last saw your specialist? no Are you a Pre Diabetic/Diabetic/Weight loss/CHF medications No Dialysis No Skilled Facility Resident: no Any recent hospitalizations outside of [facility]? no Instructions Given to Patient's : hold asa 1 day pre-op and eliquis 2 days pre-op Spouse given verbal preop instructions and voices comprehension and compliance. 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 Back pain Cancer (HCC) Complex partial seizures (HCC) Dementia (HCC) Depression DVT (deep venous thrombosis) (HCC) Dysphagia Frequent falls GERD (gastroesophageal reflux disease) Glaucoma suspect of both eyes Heart disease History of heart attack Hypercholesterolemia Hypertension Low iron Presenile dementia, uncomplicated (HCC) Pseudophakia Restless leg syndrome Seizure (HCC) Thyroid disease TIA (transient ischemic attack) PAST SURGICAL HISTORY Procedure Laterality Date CC CORONARY STENT ~1989 PAST SURGICAL HISTORY OF Ablation T 11 PAST SURGICAL HISTORY OF hernia surgery PAST SURGICAL HISTORY OF hammer toe correction PAST SURGICAL HISTORY OF lumbar laminectomy PAST SURGICAL HISTORY OF carpal tunnel release PAST SURGICAL HISTORY OF tonsillectomy and adenoidectomy PAST SURGICAL HISTORY OF lumpectomy of left breast PAST SURGICAL HISTORY OF cardiac catheterization PAST SURGICAL HISTORY OF EGD PAST SURGICAL HISTORY OF colonoscopy PAST SURGICAL HISTORY OF ventral hernia repair PAST SURGICAL HISTORY OF cataract surgery PAST SURGICAL HISTORY OF appendectomy PAST SURGICAL HISTORY OF kyphoplasty REMV CATARACT EXTRACAP,INSERT LENS Bilateral FAMILY HISTORY Problem Relation Age of Onset No Ocular Disease Mother Stroke Mother Arthritis Mother No Ocular Disease Father Heart Attack Father 40 Hypertension Father Alcohol abuse Father other (oth) Sister anemia Social History Tobacco Use Smoking status: Never Smokeless tobacco: Never Vaping Use Vaping status: Never Used Substance Use Topics Alcohol use: Yes Comment: Weekly 1-2 drinks Drug use: Never (Not in a hospital admission) ALLERGIES Allergen Reactions Propoxyphene N-Acet* Other: See Comments hallucinations Adhesive Tape-Silic* Unknown Other reaction(s): Other (comments) Not sure which type of tape but red skin. Doxycycline Vomiting Lamictal [Lamotrigi* Swelling Lips swelling Latex Rash Moxifloxacin Mental Status Change Percocet [Oxycodone* Mental Status Change Propoxyphene Mental Status Change, Other: See Comments Hallucinations Includes Darvocet Zolpidem Mental Status Change Adhesive Other: See Comments Not sure which type of tape but red skin. Diclofenac Sodium Other: See Comments Topical gel resulted in hand swelling. Oxycodone Mental Status Change COMPLETE REVIEW OF SYSTEMS: PAIN ASSESSMENT: Negative for pain, history of chronic pain, or current treatment for a chronic pain condition. GENERAL: No weight loss, malaise or fevers HEENT: Negative for frequent or significant headaches, No changes in hearing or vision, no nose bleeds or other nasal problems NECK: Negative for lumps, goiter, pain and significant neck swelling RESPIRATORY: Negative for cough, hemoptysis, wheezing, COPD, dyspnea or shortness of breath CARDIOVASCULAR: See HPI GI: See HPI : No history of dysuria, frequency or incontinence TORCH BRAZER: Negative for abnormal vaginal bleeding, abnormal vaginal discharge MUSCULOSKELETAL: back pain and muscle pain SKIN: Negative for lesions, rash, and itching PSYCH: Negative for sleep disturbance, mood disorder and recent psychosocial stressors HEMATOLOGY/LYMPHOLOGY: Negative for prolonged bleeding, bruising easily or swollen nodes ENDOCRINE: Negative for cold or heat intolerance, polyuria, polydipsia and goiter NEURO: No history of headaches, syncope, paralysis, seizures or tremors Objective PHYSICAL EXAM: Physical Exam Performed: GENERAL: Alert, no distress, cooperative SKIN: Skin color, texture, turgor normal. No rashes or lesions. NECK: No jugulovenous distention, No carotid bruits, Carotid pulse normal contour, Supple LUNGS: Lungs clear to auscultation, Good diaphragmatic excursion CARDIAC: Normal S1 and S2; no rubs, murmurs, or gallops ABDOMEN: Abdomen soft, non-tender, BS normal, No masses or organomegaly EXTREMITIES: Extremities normal, no deformities, edema, clubbing or skin discoloration. Good capillary refill., No ulcers NEURO: Gait normal. Reflexes normal and symmetric. Sensation grossly intact, Cranial nerves II-XII intact PULSES: 2+ radial, 2+ carotid BP 108/57 Pulse 72 Ht 4' 7.984 (1.42m) Wt 102 lb 4.7 oz (46.4kg) BMI 22.95 kg/(m^2). DATA: Diagnostic tests reviewed for today's visit: Most recent labs and imaging results. Assessment/Plan This is a 84 year old female who presents for her preoperative evaluation for a PEH repair She obtained cardiology clearance obtained Consented SIGNATURE: Anila De Paz MD PATIENT NAME: Lauren Alcaraz DATE: September 03, 2024 TIME: 3:00 PM [facility]01-17-2025 History and physical note* Anila De Paz MD - 09/03/2024 3:00 PM EST HISTORY AND PHYSICAL EXAMINATION SERVICE DATE: 09/03/2024 SERVICE TIME: 2:30PM PRIMARY CARE PHYSICIAN: Chema Perry MD Subjective CHIEF COMPLAINT: GERD HPI: This is a 84 year old female who presents for her preoperative evaluation for a PEH repair FUNCTIONAL STATUS: Independent 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 Back pain Cancer (HCC) Complex partial seizures (HCC) Dementia (HCC) Depression DVT (deep venous thrombosis) (HCC) Dysphagia Frequent falls GERD (gastroesophageal reflux disease) Glaucoma suspect of both eyes Heart disease History of heart attack Hypercholesterolemia Hypertension Low iron Presenile dementia, uncomplicated (HCC) Pseudophakia Restless leg syndrome Seizure (HCC) Thyroid disease TIA (transient ischemic attack) PAST SURGICAL HISTORY Procedure Laterality Date CC CORONARY STENT ~1989 PAST SURGICAL HISTORY OF Ablation T 11 PAST SURGICAL HISTORY OF hernia surgery PAST SURGICAL HISTORY OF hammer toe correction PAST SURGICAL HISTORY OF lumbar laminectomy PAST SURGICAL HISTORY OF carpal tunnel release PAST SURGICAL HISTORY OF tonsillectomy and adenoidectomy PAST SURGICAL HISTORY OF lumpectomy of left breast PAST SURGICAL HISTORY OF cardiac catheterization PAST SURGICAL HISTORY OF EGD PAST SURGICAL HISTORY OF colonoscopy PAST SURGICAL HISTORY OF ventral hernia repair PAST SURGICAL HISTORY OF cataract surgery PAST SURGICAL HISTORY OF appendectomy PAST SURGICAL HISTORY OF kyphoplasty REMV CATARACT EXTRACAP,INSERT LENS Bilateral FAMILY HISTORY Problem Relation Age of Onset No Ocular Disease Mother Stroke Mother Arthritis Mother No Ocular Disease Father Heart Attack Father 40 Hypertension Father Alcohol abuse Father other (oth) Sister anemia Social History Tobacco Use Smoking status: Never Smokeless tobacco: Never Vaping Use Vaping status: Never Used Substance Use Topics Alcohol use: Yes Comment: Weekly 1-2 drinks Drug use: Never (Not in a hospital admission) ALLERGIES Allergen Reactions Propoxyphene N-Acet* Other: See Comments hallucinations Adhesive Tape-Silic* Unknown Other reaction(s): Other (comments) Not sure which type of tape but red skin. Doxycycline Vomiting Lamictal [Lamotrigi* Swelling Lips swelling Latex Rash Moxifloxacin Mental Status Change Percocet [Oxycodone* Mental Status Change Propoxyphene Mental Status Change, Other: See Comments Hallucinations Includes Darvocet Zolpidem Mental Status Change Adhesive Other: See Comments Not sure which type of tape but red skin. Diclofenac Sodium Other: See Comments Topical gel resulted in hand swelling. Oxycodone Mental Status Change COMPLETE REVIEW OF SYSTEMS: PAIN ASSESSMENT: Negative for pain, history of chronic pain, or current treatment for a chronic pain condition. GENERAL: No weight loss, malaise or fevers HEENT: Negative for frequent or significant headaches, No changes in hearing or vision, no nose bleeds or other nasal problems NECK: Negative for lumps, goiter, pain and significant neck swelling RESPIRATORY: Negative for cough, hemoptysis, wheezing, COPD, dyspnea or shortness of breath CARDIOVASCULAR: See HPI GI: See HPI : No history of dysuria, frequency or incontinence TORCH BRAZER: Negative for abnormal vaginal bleeding, abnormal vaginal discharge MUSCULOSKELETAL: back pain and muscle pain SKIN: Negative for lesions, rash, and itching PSYCH: Negative for sleep disturbance, mood disorder and recent psychosocial stressors HEMATOLOGY/LYMPHOLOGY: Negative for prolonged bleeding, bruising easily or swollen nodes ENDOCRINE: Negative for cold or heat intolerance, polyuria, polydipsia and goiter NEURO: No history of headaches, syncope, paralysis, seizures or tremors Objective PHYSICAL EXAM: Physical Exam Performed: GENERAL: Alert, no distress, cooperative SKIN: Skin color, texture, turgor normal. No rashes or lesions. NECK: No jugulovenous distention, No carotid bruits, Carotid pulse normal contour, Supple LUNGS: Lungs clear to auscultation, Good diaphragmatic excursion CARDIAC: Normal S1 and S2; no rubs, murmurs, or gallops ABDOMEN: Abdomen soft, non-tender, BS normal, No masses or organomegaly EXTREMITIES: Extremities normal, no deformities, edema, clubbing or skin discoloration. Good capillary refill., No ulcers NEURO: Gait normal. Reflexes normal and symmetric. Sensation grossly intact, Cranial nerves II-XII intact PULSES: 2+ radial, 2+ carotid BP 108/57 Pulse 72 Ht 4' 7.984 (1.42m) Wt 102 lb 4.7 oz (46.4kg) BMI 22.95 kg/(m^2). DATA: Diagnostic tests reviewed for today's visit: Most recent labs and imaging results. Assessment/Plan This is a 84 year old female who presents for her preoperative evaluation for a PEH repair She obtained cardiology clearance obtained Consented SIGNATURE: Anila De Paz MD PATIENT NAME: Lauren Alcaraz DATE: September 03, 2024 TIME: 3:00 PM documented in this encounterElyria [facility]01-17-2025 NoteC[facility]01-17-2025 History of Present illness Narrative* Taylor Forrest RN - 09/03/2024 2:47 PM EST Pt with , Delroy PACC questionnaire complete: In-person PACC Wears O2 at night and when napping Slow to wake up from anesthesia - note sent to PACC Pain Management Reviewed surgical plan with pt- agreed upon date of 09/20/[address] De Paz at [facility] ELIQUIS INSTRUCTIONS per Dr. Marcial 08/03/25 The patient will continue taking Eliquis 5 mg twice daily and hold it for 2 days prior to the hiatal hernia surgery. I advised her to watch for signs and symptoms of bleeding closely. She can decrease the dose of Eliquis to 2.5 mg twice daily after surgery. Advised pt clear liquids after 6pm, NPO after midnight Shower with anti-alex soap the evening before and am of surgery Pt requested transfer to [facility] for rehab. Will inform team - advised pt to inform correctional casework specialist before discharge. AMBULATORY PATIENT EDUCATION NOTE TOPIC: SURVIVAL SKILLS: Complication Prevention Diet Safety Precautions Symptom Management Wound Care LIFE STYLE CHANGES: Diet, Exercise, and Safety Precautions HEALTH PROMOTION: Complication prevention Diet Exercise Follow up management Self management VTE Prevention Measure Mechanical and Pharmacological READINESS TO LEARN COGNITIVE ABILITY: Alert and oriented MOTIVATION TO LEARN: Eager Interested FAMILY SUPPORT: High - Very involved in pt care INSTRUCTION PROVIDED TO: Patient and Spouse PATIENT LEARNS BEST BY: Multiple Methods FACTORS AFFECTING LEARNING: None PHYSICAL LIMITATIONS AFFECTING LEARNING: None LEARNING RESPONSE DIAGNOSIS: Hiatal Hernia, epigastric pain, nausea, vomiting METHOD OF INSTRUCTION: Teach Back identified s/s infection, dehydration, constipation, and blood clots. Reviewed strategies to reduce risk. Individual instruction PATIENT / FAMILY RESPONSE: Verbalizes understanding of: INFECTION MANAGEMENT- Signs and symptoms of an infection and importance of contacting the physician MEDICAL REGIMEN-Importance of following prescribed medical regimen PAIN MANAGEMENT-Effective strategies to manage pain in addition to pain medication PHYSICAL RESTRICTIONS-Physical restrictions and recommendations after discharge from the hospital POST-OPERATIVE INSTRUCTIONS-Correct actions to take to reduce postoperative complications PRE-OPERATIVE INSTRUCTIONS-Correct action to take to follow pre-operative instructions PATIENT SAFETY PRINCIPLES SYMPTOM MANAGEMENT-Correct actions to take to manage symptoms associated with his/her disease/illness VTE prevention measures WORSENING CONDITION-Signs and symptoms of a worsening condition that warrant a call to the physician WOUND CARE-Correct procedure to perform wound care FOLLOW-UP PLAN: Reinforce - Repeat previous content SUPPLEMENTAL MATERIAL: None REFERRAL (RECOMMENDATION): None Electronically Signed By: Taylor Forrest RN In Department: GENERAL SURGERY Time spent on patient education: 20 minutes. documented in this encounterElyria [facility] Hospital01-08-2025 Telephone encounter Note * Telephone Encounter - Taylor Forrest RN - 08/25/2024 10:36 AM EST Received a call from patient's : Delroy Called to update this RN that Lauren has completed all testing and would like to talk with Dr. De Paz before proceeding with surgery. Scheduled for in-person appt - 09/03/24 (declined earlier date) Pt informed this RN that she would like to proceed with surgery marcella, but would like to meet with Dr. De Paz first. Will update MD regarding completion of ordered testing. Provided pt and this RN contact info [facility]01-08-2025 Miscellaneous Notes* Telephone Encounter - Taylor Forrest RN - 08/25/2024 10:36 AM EST Received a call from patient's : Delroy Called to update this RN that Lauren has completed all testing and would like to talk with Dr. De Paz before proceeding with surgery. Scheduled for in-person appt - 09/03/24 (declined earlier date) Pt informed this RN that she would like to proceed with surgery marcella, but would like to meet with Dr. De Paz first. Will update MD regarding completion of ordered testing. Provided pt and this RN contact info documented in this encounterElyria [facility] Hospital12-20-2024 Instructions* Patient Instructions* Denice Jacobs PA-C - 08/06/2024 10:30 AM EST Laboratory studies EMG of the arm and leg Follow up in [facility] (Tuesdays and Wednesdays) after work up documented in this encounterElyria [facility] Hospital12-20-2024 NoteC[facility]12-20-2024 History of Present illness Narrative* Denice Jacobs PA-C - 08/06/2024 9:47 AM EST Images from the original note were not included. [facility] for General Neurology Name: Lauren Alcaraz Age: [age] year old Gender: female Primary Care Provider: Chema Perry MD Consult requested for paresthesias by Laisha Lizarraga. Recommendations will be communicated via shared medical record or US mail. Chief Complaint:Consult (Paresthesia of both feet/ illegal writing) 08/06/2024 - General Neurology, Denice Jacobs PA-C ASSESSMENT ASSESSMENT/PLAN: 1. Neuropathy - ICD9: 355.9, ICD10: G62.9 (primary diagnosis) 2. Paresthesia of both feet - ICD9: 782.0, ICD10: R20.2 3. Frequent falls - ICD9: V15.88, ICD10: R29.6 Patient with complaints of paresthesias to hands and feet, history is limited and changes throughout interview. Originally symptoms started 3 to 4 weeks ago but then patient corrects with loss and states it has been months of ongoing symptoms. Reporting 6 months of some difficulty with handwriting,has undergone occupational therapy and physical therapy for this with no improvement. Has history of carpal tunnel syndrome 10 years ago with bilateral surgeries but feels it is not related. Patient does have abnormal sensory testing on exam, has decreased in temperature and pinprick in the feet bilaterally and lower leg, worse on the right than the left. Unable to test vibration, has very poor pr oprioception. Notes frequent falls, last fall was 3 weeks ago. Notes that her right leg gave out onher, uses a rollator at home but does have a wheelchair. Has history of lumbar surgery, notes was many years ago and has not followed with orthopedics since. Does see pain management for chronic backpain. Recent MRI of the lumbar and thoracic spine show diffuse degenerative changes ranging moderate to severe. Also with compression fracture in the thoracic spine. At this time, discussed that her symptoms could be multifactorial including lumbar, thoracic disease versus neuropathy versus nerve impingement. Regarding her handwriting, unclear etiology for this, does have significant thenar atrophy bilaterally patient reports that she does not believe it secondary to her carpal tunnel. Discussed obtaining an EMG of the upper and lower extremity to evaluate for any signs of neuropathy versus nerve impingement contributing to her symptoms. Patient is amenable to this. Additionally, will orderbasic blood work to look for common causes of neuropathy. No signs or symptoms of acute cord compression at this time. In addition to paresthesias, patient reporting a significant concern for bony prominences on her chest, discussed at length this is not something I usually see, encouraged her to follow-up with her primary care for further evaluation. Does have history of breast cancer with radiation in the area. Patient agreeable to treatment plan of care at this time, questions were answered. Patient to follow-up after workup is completed. Denice Jacobs PA-C Encounter Diagnosis ICD-10-CM 1. Neuropathy G62.9 EMG(NEURO/NI) VITAMIN B6/PYRIDOXIN VITAMIN B1 (THIAMINE), WHOLE BLOOD VITAMIN B12 COMPLETE BLOOD COUNT COMPREHENSIVE METABOLIC PANEL 2. Paresthesia of both feet R20.2 PROTEIN ELECTROPHORESIS SERUM W/INTERP Return in about 3 months (around 11/04/2024). Chart, labs,and relevant images reviewed. HPI: Hx of dementia and following with brain [facility], referred for paresthesias. Last visit on 07/01/24 numbness/tingling in her feet-- may have been present for a while . Recent B12 normal in 2020. This is a 83 year old female presenting with concern of paresthesias. Patient presents for concerns of paresthesias in her hands and feet as well as difficulty with handwriting. History is a bit limited, patient does have some limitations in memory. Is unsure quite when her symptoms started. Believes that been going on for months, but told nursing that it has been 3 weeks. Notes that she for started some numbness in her feet, states that when she was walking she could not feel it and this was new for her. Started in both feet bilaterally and has been constant ever since. After she has had she then started developing paresthesias in her hands but then states it has been ongoing for years. Notes history of carpal tunnel 10 years ago with surgery bilaterally butdoes not feel this is what is causing her difficulty writing and paresthesias. Reports generalized weakness as well, has frequent falls which has been an issue for years as well. Has a rollator at home, last fall was 3 weeks ago where her right leg gave out on her. Has been undergoing occupational therapy and physical therapy for her hands without any improvement in her handwriting. Has no burning pain or [id number] feeling, just reports a lack of sensation in the hands and feet. Does seepain management regularly, takes tramadol for her chronic back pain. Had history of lumbar surgery many years ago. Currently still has mid to low back pain daily. Patient also notes that she is having some weight loss, attributes this to her hiatal hernia for which she is scheduled to have a repair of this. Is this is also contributing to her falls. Patient with history of kyphosis as well with 2 kyphoplasties in the past. No change in bowel or bladder habits, no saddle anesthesia reported. No risk factors for neuropathy, but does report a B12 deficiency but she is on injections regularlyfor this. This is monitored by her primary care who is outside of the [facility]. 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 of Gait Multiple Falls Weakness Ms (Multiple Sclerosis) (Hcc) Coronary Artery Disease Due to Lipid Rich Plaque Bilateral Leg Edema Bronchiectasis ([facility]) Gastroesophageal Reflux Disease Essential Hypertension History of Dvt (Deep Vein Thrombosis) Hyperlipidemia History of Malignant Neoplasm of Breast Hypothyroidism 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 Iron Deficiency Anemia Obstructive Sleep Apnea Syndrome Osteoporosis Overactive Bladder Restless Legs Syndrome Seizure Disorder (Hcc) Esophageal Stricture Pulmonary Embolism (Hcc) Coronary Stent Patent 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 Back pain Cancer (HCC) Complex partial seizures (HCC) Dementia (HCC) Depression DVT (deep venous thrombosis) (HCC) Dysphagia Frequent falls GERD (gastroesophageal reflux disease) Glaucoma suspect of both eyes Heart disease History of heart attack Hypercholesterolemia Hypertension Low iron Presenile dementia, uncomplicated (HCC) Pseudophakia Restless leg syndrome Seizure (HCC) Thyroid disease TIA (transient ischemic attack) Medications: Reviewed furosemide (LASIX) 20 mg tablet Take 0.5 tablets by mouth every afternoon. As needed potassium chloride ER (KLOR-CON) 20 mEq tablet Take 1 tablet by mouth once daily. brimonidine (ALPHAGAN) 0.2 % ophthalmic solution Use 1 Drop in both eyes two times a day. latanoprost (XALATAN) 0.005 % ophthalmic solution Use 1 Drop in both eyes daily at bedtime. d-mannose 500 mg capsule Take 500 mg by mouth once daily. cetirizine (ZYRTEC) 10 mg tablet Take 10 mg by mouth once daily as needed. fluticasone (ALLERGY RELIEF, FLUTICASONE,) 50 mcg/actuation nasal spray Use 1 [place] in each nostrilonce daily. donepezil (ARICEPT) 10 mg tablet Take 1 tablet by mouth daily with breakfast. gabapentin (NEURONTIN) 100 mg capsule as needed. traMADol (ULTRAM) 50 mg tablet Take 25 mg by mouth two times a day. famotidine (PEPCID) 10 mg tablet Take 10 mg by mouth twice daily. DODEX 1,000 mcg/mL Inject 1,000 mcg intramuscularly once every month. Vitamin F-53-sbeclxcpvalonb ammonium lactate (LAC-HYDRIN) 12 % lotion BD ECLIPSE LUER-BOZENA 3 mL 23 x 1 MULTIVITAMIN ORAL Take by mouth once daily. albuterol (PROVENTIL) 2.5 mg /3 mL (0.083 %) nebulizer solution as needed. Lactobacillus acidophilus (PROBIOTIC) 10 billion cell cap once daily. pramipexole (MIRAPEX) 0.5 mg tablet Take 0.5 mg by mouth two times a day. vortioxetine (TRINTELLIX) 20 mg tablet Take 20 mg by mouth once daily. atorvastatin (LIPITOR) 40 mg tablet Take 40 mg by mouth once daily. ELIQUIS 5 mg tab(s) Take 5 mg by mouth two times a day. BID levothyroxine (SYNTHROID) 50 mcg tablet Take 50 mcg by mouth once daily. memantine (NAMENDA) 10 mg tablet Take 10 mg by mouth two times a day. MYRBETRIQ 50 mg Tb24 Taking 2 tabs [...] every 6 months. Last injection November 2020 ALLERGIES Allergen Reactions Propoxyphene N-Acet* Other: See Comments hallucinations Adhesive Tape-Silic* Unknown Other reaction(s): Other (comments) Not sure which type of tape but red skin. Doxycycline Vomiting Lamictal [Lamotrigi* Swelling Lips swelling Latex Rash Moxifloxacin Mental Status Change Percocet [Oxycodone* Mental Status Change Propoxyphene Mental Status Change, Other: See Comments Hallucinations Includes Darvocet Zolpidem Mental Status Change Adhesive Other: See Comments Not sure which type of tape but red skin. Diclofenac Sodium Other: See Comments Topical gel resulted in hand swelling. Oxycodone Mental Status Change FAMILY HISTORY Problem Relation Age of Onset No Ocular Disease Mother Stroke Mother Arthritis Mother No Ocular Disease Father Heart Attack Father 40 Hypertension Father Alcohol abuse Father other (oth) Sister anemia PAST SURGICAL HISTORY Procedure Laterality Date CC CORONARY STENT ~1989 PAST SURGICAL HISTORY OF Ablation T 11 PAST SURGICAL HISTORY OF hernia surgery PAST SURGICAL HISTORY OF hammer toe correction PAST SURGICAL HISTORY OF lumbar laminectomy PAST SURGICAL HISTORY OF carpal tunnel release PAST SURGICAL HISTORY OF tonsillectomy and adenoidectomy PAST SURGICAL HISTORY OF lumpectomy of left breast PAST SURGICAL HISTORY OF cardiac catheterization PAST SURGICAL HISTORY OF EGD PAST SURGICAL HISTORY OF colonoscopy PAST SURGICAL HISTORY OF ventral hernia repair PAST SURGICAL HISTORY OF cataract surgery PAST SURGICAL HISTORY OF appendectomy PAST SURGICAL HISTORY OF kyphoplasty REMV CATARACT EXTRACAP,INSERT LENS Bilateral SOCIAL HISTORY No social history on file. Tobacco Use: Low Risk (08/06/2024) Patient History Smoking Tobacco Use: Never Smokeless Tobacco Use: Never Passive Exposure: Not on file PHYSICAL EXAM 08/06/24 0950 BP: 116/63 Pulse: 79 Neurological Exam Cognitive and Language: Alert and answered questions appropriately. Language was fluent. Followed simple and complex commands. Cranial Nerves: Visual ambriz were full tested binocularly to finger counting in all 4 quadrants with no visual extinction. Pupils were equal and both reactive to light. Extraocular movements were full with no diplopia or nystagmus. Facial sensation was normal to light touch in V1 to V3. Facial strength was symmetric. Normal hearing grossly bilaterally. Palatal raise was symmetric. Shoulder shrug was symmetric. Tongue protrusion was symmetric with no fasciculations. Right Left Shoulder Abduction: 5 5 Elbow Extension 5 5 Elbow Flexion 5 5 Wrist Extension 5 5 Finger Extension 5 5 Finger Abduction 5 5 Right Left Hip Flexion 5 5 Knee Extension 5 5 Knee Flexion 5 5 Dorsiflexion 5 5 Plantar Flexion 5 5 Rest tremor: absent Tone: Normal in all four limbs Reflexes: 2/4 to the upper extremities bilaterally, negative Augusto, 3/4 to the patellar bilaterally, 2/4 to the right Achilles, 1/4 to the left Achilles Sensory: Absent sensation to pinprick and temperature in the feet, decreased at the mid tib-fib andknee, right is worse than left. Difficulty with vibration testing, patient states that she felt that long after it stopped. Very poor proprioception and Romberg testing. Normal sensory testing to thehands. Coordination: Positive Romberg, gait not tested due to fall risk. Patient presently in a wheelchairbut uses a rollator at home Labs: No results found for: WBC, HGB, HCT, MCV, PLT No results found for: HBA1C No results found for: CHOL, HDL, LDL, TG Lab Results Component Value Date B12 484 10/25/2020 No components found for: SPEP Radiology: MRI Head/Brain - Last 2 Impressions MRI BRAIN WO/W IVCON Collected: 11/01/2019 9:42 AM (Final result) Impression: 1. No acute findings. No evidence of acute infarct, mass or hemorrhage. No unusual enhancement. 2. The exam is notable for prominent atrophy and prominent white matter changes, most consistent with chronic small vessel ischemic disease. I do... MRI BRAIN WO/W IVCON Exam End: 12/28/2018 12:38 PM (Final result) Impression: No acute intracranial abnormality. Signed By: Constantin Landry MD on 12/28/2018 12:45 PM EMG/NCS: Skin Biopsy: This note was dictated using [employer] speech recognition software and may contain some errors that were a result of the program not accurately transcribing what was dictated, despite efforts to make corrections. Note that unless urgent, test and MRI results will be discussed at next follow- up visit. PROMIS (Patient-Reported Outcomes Measurement Information System) is a set of person-centered measures that evaluates and monitors physical, social, and emotional health. It can be used with the general population and with individuals living with chronic conditions. PROMIS 10: PHYSICAL AND MENTAL HEALTH: 06/24/2024 PHQ-9 PHQ-2 Score 0 PHQ-9 Score 0 Medical Decision Making: Medical Decision Making Level: 1 - N/A I spent a total of 55 minutes on the date of the service which included preparing to see the patient, [id number] patient care, completing clinical documentation, obtaining and/or reviewing separately obtained history, performing a medically appropriate examination, counseling and educating the pat ient/family/caregiver, and ordering medications, tests, or procedures. documented in this encounterE[facility] NoteNORMAL SINUS RHYTHM LEFT AXIS DEVIATION POOR R WAVE PROGRESSION INFERIOR MYOCARDIAL INFARCTION , AGE UNDETERMINED ABNORMAL ECG Confirmed by MD MARCIAL QARAB ([id number]), production editor TONYA IVEY ([id number]) on 08/03/2024 4:15:08 PMKETTERING HE[facility]RT AND VASCULAR [id number] Instructions* Patient Instructions* Sourav Marcial MD - 08/03/2024 3:59 PM EST Coronary Artery Disease: The coronary arteries are the blood vessels that supply your heart with blood. Your heart needs this blood to work properly. Every day, your heart pumps about 3,000 gallons of blood through your body. What is coronary artery disease? Coronary artery disease is the narrowing or blockage of the coronary arteries. This condition is usually caused by atherosclerosis. Atherosclerosis is the build-up of cholesterol and fatty deposits (called plaques) on the inner baltazar of the arteries. These plaques can limit or stop blood flow to the heart muscle by clogging the artery or by causing damage to the arteries. If the heart does not get enough blood, it cannot get the oxygen and nutrients it needs to work properly. This can cause chest pain called angina. If the blood supply to an area of the heart muscle is completely blocked, or if the heart can t work as hard as it needs to because it lacks blood, you can have a heart attack. What causes the coronary arteries to narrow? Healthy coronary arteries are smooth and elastic. The inside of these muscular hollow tubes are lined with a layer of cells called the endothelium. The endothelium helps protect the vessel baltazar and keep the arteries working properly. Blood can flow freely. Coronary artery disease starts when you are very young. Before your teen years, the blood vessel baltazar start to show streaks of fat. As you get older, the fat builds up, causing minor damage to your blood vessel baltazar. With time, other substances that move through your blood stream, such as inflammatory cells, cellular waste products, proteins and calcium, stick to the vessel baltazar. These things combine with the fat and form plaque. Plaque deposits collect inside the arteries. They are different sizes, and many are soft on the inside with a hard, fibrous cap that covers the outside. If the hard surface cracks or tears, the soft,fatty inside is exposed. Platelets (disc- shaped particles in the blood that help form clots) move to the area, and blood clots form around the plaque. The endothelium can also become irritated and stop working properly, which causes the artery to squeeze at the wrong times. This causes the artery to narrow even more. Sometimes, the blood clot breaks apart and blood can flow through the area again. Other times, the blood clot (coronary thrombus) suddenly blocks the blood supply to the heart muscle (coronary occlusion), causing one of three serious conditions known as an acute coronary syndrome. Reduce your risk factors The first step in treatment for coronary artery disease is reducing your risk factors. This involves making changes in your lifestyle. Don t smoke. If you smoke or use tobacco products, quit. Talk to your doctor about ways to help youstop smoking, including medications. Manage health problems like high cholesterol, high blood pressure, diabetes. Eat a heart-healthy diet. Talk to your doctor or a registered dietitian about ways to change your diet to reduce your risk of heart disease. Limit alcohol use. Daily limits are one drink per day for women, two drinks per day for men. Increase your activity level. Exercise helps you lose weight, improve your physical condition and relieve stress. Most people can reduce their risk of heart attack by doing the equivalent of 30 minutes of walking 5 times per week or walking 10,000 steps per day It is important to talk to your doctor before you start any exercise program. Medications Your doctor may prescribe medication as part of your treatment plan for coronary artery disease. These can include medications to lower cholesterol levels and blood pressure or treat other health conditions you have. It is important to take all medications as prescribed. Ask your doctor if you haveany questions about which medications you should take or how to take them. Interventional procedures Interventional procedures are not considered surgery. A stock unloader (not a surgeon) performs theseprocedures to reduce plaque build-up in the arteries and prevent blockages. Common procedures are balloon angioplasty (PTCA) and stenting. During an interventional procedure, a long, thin tube calleda catheter is inserted into an artery through a small incision. The catheter is guided to the blocked area of the artery, and the plaque build-up is cleared. Your doctor will give you more information if you need an interventional procedure as part of your treatment. documented in this encounterEly[facility]12[facility] of Present illness Narrative* Sourav Marcial MD - 08/03/2024 3:29 PM EST Images from the original note were not included. [facility] [place] [facility] Department of Cardiovascular Medicine SECTION OF REGIONAL CARDIOLOGY [facility] August 03, 2024 OUTPATIENT VISIT TYPE Consult Consultation requested by Dr Anila De Paz for an opinion regarding preoperative surgery forher hiatal hernia as she has history of coronary artery disease, Hyperlipidemia, and Hypertension. A copy of this consultation note will be provided to the requesting physician by way of shared Medical record. HISTORY OF PRESENT ILLNESS: Ms. 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 She has no symptoms of chest tightness heaviness or pressure but she was found to have 8 cm hiatal hernia and would need elective repair bearer of the hiatal hernia. Patient has no symptoms of chest pain with her limited exercise activities. He had a stress nuclearscan in 2022 which did not show any ischemia and her LV function was preserved with ejection fraction of up to 89%. Patient has mild exertional shortness of breath. Dizziness - No Palpitations - No Leg swelling - No Fatigue - No Snoring - No Sleep apnea - No Patient drinks no cups of coffee or caffeine containing beverages per day Patient does not smoke tobacco products. Patient drinks rare small amount of alcohol periodically Patient denies recreational drug use / abuse. Social History Tobacco Use Smoking status: Never Smokeless tobacco: Never Vaping Use Vaping status: Never Used Substance Use Topics Alcohol use: Yes Comment: Weekly 1-2 drinks Drug use: Never FAMILY HISTORY Problem Relation Age of Onset No Ocular Disease Mother Stroke Mother Arthritis Mother No Ocular Disease Father Heart Attack Father 40 Hypertension Father Alcohol abuse Father other (oth) Sister anemia 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 Back pain Cancer (HCC) Complex partial seizures (HCC) Dementia (HCC) Depression DVT (deep venous thrombosis) (HCC) Dysphagia Frequent falls GERD (gastroesophageal reflux disease) Glaucoma suspect of both eyes Heart disease History of heart attack Hypercholesterolemia Hypertension Low iron Presenile dementia, uncomplicated (HCC) Pseudophakia Restless leg syndrome Seizure (HCC) Thyroid disease TIA (transient ischemic attack) PAST SURGICAL HISTORY Procedure Laterality Date CC CORONARY STENT ~1989 PAST SURGICAL HISTORY OF Ablation T 11 PAST SURGICAL HISTORY OF hernia surgery PAST SURGICAL HISTORY OF hammer toe correction PAST SURGICAL HISTORY OF lumbar laminectomy PAST SURGICAL HISTORY OF carpal tunnel release PAST SURGICAL HISTORY OF tonsillectomy and adenoidectomy PAST SURGICAL HISTORY OF lumpectomy of left breast PAST SURGICAL HISTORY OF cardiac catheterization PAST SURGICAL HISTORY OF EGD PAST SURGICAL HISTORY OF colonoscopy PAST SURGICAL HISTORY OF ventral hernia repair PAST SURGICAL HISTORY OF cataract surgery PAST SURGICAL HISTORY OF appendectomy PAST SURGICAL HISTORY OF kyphoplasty REMV CATARACT EXTRACAP,INSERT LENS Bilateral REVIEW OF SYSTEMS: SYSTEMIC: No fever, chills, or change in weight or appetite HEENT: No recent change in vision or hearing. Respiratory: No hemoptysis, cough. CARDIOVASCULAR: See HPI. GI: No recent nausea, vomiting or diarrhea. : No recent hematuria or dysuria. SKIN: No recent itching or eruption. PSYCH: No recent active anxiety or depression. HEMATOLOGY/ONCOLOGY: No recent diagnosis of bleeding or cancer. ENDOCRINE: No recent polyuria or heat intolerance. NEURO: No recent TIA, stroke or seizures. MSK / RHEUMATOLOGY: No recent active connective tissue disease. Rest of the review of system is unremarkable. ALLERGIES Allergen Reactions Propoxyphene N-Acet* Other: See Comments hallucinations Adhesive Tape-Silic* Unknown Other reaction(s): Other (comments) Not sure which type of tape but red skin. Doxycycline Vomiting Lamictal [Lamotrigi* Swelling Lips swelling Latex Rash Moxifloxacin Mental Status Change Percocet [Oxycodone* Mental Status Change Propoxyphene Mental Status Change, Other: See Comments Hallucinations Includes Darvocet Zolpidem Mental Status Change Adhesive Other: See Comments Not sure which type of tape but red skin. Diclofenac Sodium Other: See Comments Topical gel resulted in hand swelling. Oxycodone Mental Status Change CURRENT MEDICATIONS: brimonidine (ALPHAGAN) 0.2 % ophthalmic solution Use 1 Drop in both eyes two times a day. latanoprost (XALATAN) 0.005 % ophthalmic solution Use 1 Drop in both eyes daily at bedtime. d-mannose 500 mg capsule Take 500 mg by mouth once daily. cetirizine (ZYRTEC) 10 mg tablet Take 10 mg by mouth once daily as needed. fluticasone (ALLERGY RELIEF, FLUTICASONE,) 50 mcg/actuation nasal spray Use 1 [place] in each nostrilonce daily. donepezil (ARICEPT) 10 mg tablet Take 1 tablet by mouth daily with breakfast. gabapentin (NEURONTIN) 100 mg capsule as needed. traMADol (ULTRAM) 50 mg tablet Take 25 mg by mouth two times a day. famotidine (PEPCID) 10 mg tablet Take 10 mg by mouth twice daily. DODEX 1,000 mcg/mL Inject 1,000 mcg intramuscularly once every month. Vitamin C-78-cqnwrnxppuotoi ammonium lactate (LAC-HYDRIN) 12 % lotion MULTIVITAMIN ORAL Take by mouth once daily. albuterol (PROVENTIL) 2.5 mg /3 mL (0.083 %) nebulizer solution as needed. Lactobacillus acidophilus (PROBIOTIC) 10 billion cell cap once daily. pramipexole (MIRAPEX) 0.5 mg tablet Take 0.5 mg by mouth two times a day. vortioxetine (TRINTELLIX) 20 mg tablet Take 20 mg by mouth once daily. atorvastatin (LIPITOR) 40 mg tablet Take 40 mg by mouth once daily. ELIQUIS 5 mg tab(s) Take 5 mg by mouth two times a day. BID levothyroxine (SYNTHROID) 50 mcg tablet Take 50 mcg by mouth once daily. memantine (NAMENDA) 10 mg tablet Take 10 mg by mouth two times a day. MYRBETRIQ 50 mg Tb24 Taking 2 tabs once daily lacosamide (VIMPAT) 100 mg tab Take 1 tablet by mouth twice daily for 180 days. aspirin, enteric coated (ASPIRIN, ENTERIC COATED) 81 mg EC tablet Take 81 mg by mouth once daily. tolterodine ER (DETROL LA) 4 mg 24 hr capsule Take 4 mg by mouth once daily. denosumab (PROLIA SUBCUTANEOUS) Inject 1 Dose subcutaneously once every 6 months. Last injection November 2020 furosemide (LASIX) 20 mg tablet Take 0.5 tablets by mouth every afternoon. As needed potassium chloride ER (KLOR-CON) 20 mEq tablet Take 1 tablet by mouth once daily. BD ECLIPSE LUER-BOZENA 3 mL 23 x 1 nitroglycerin sublingual (NITROQUICK) 0.4 mg SL tablet as needed. PHYSICAL EXAM: BP 148/74 Pulse 75 LMP (LMP Unknown) Last 2 Encounter Wt Readings: Date: Wt: 07/21/2024 44.5 kg (98 lb) 07/16/2024 44.5 kg (98 lb) Awake, alert, oriented times 3. Patient is not in acute respiratory distress. SKIN: No petechial rash or ecchymosis noted. Head : Normocephalic. Face is symmetrical NECK: Supple. No JVD. No carotid bruit. No thyromegaly. ENT: Pharyngeal structures are not crowded and uvula is well visualized. Mallampati 1 LUNGS: Clear to auscultation bilaterally. CARDIAC: Normal S1 and S2, no systolic murmur. ABDOMEN: Soft, nontender, bowel sounds present. EXTREMITIES: No cyanosis, clubbing, edema. PULSES: Peripheral pulses are palpable in DP and PT arteries. NEURO: Non-focal. Moves all extremities. Musculoskeletal: No significant deformities. Last Labs: I reviewed personally. Creatinine Date Value Ref Range Status 06/23/2024 0.84 0.58 - 0.96 mg/dL Final No results found for: TG, CHOL, HDL, LDL, INR Cardiovascular Testing: I reviewed personally. I have personally reviewed the Electrocardiogram, Chest X-ray, Laboratory Testing Carotid Doppler done on November 26, 2023 shows less than 50% stenosis with mild plaque disease [facility] nuclear SPECT scan done on May 2023 also shows normal LV function with no evidence of ischemia ejection fraction of 89%. However, it was done with 69% of maximal Peritrate heart rate obtained. Echocardiogram done in [facility] on 09 July 2024 shows normal LV function withejection fraction of 59%, 2+ tricuspid regurgitation with right ventricular systolic pressure of 59mmHg. 08/03/2024 EKG showed normal sinus rhythm with old inferior wall UT and poor R wave progression with no significant ST-T wave changes IMPRESSION / RECOMMENDATIONS / PLAN: Encounter Diagnosis ICD-10-CM 1. Pre-op evaluation Z01.818 2. H/O acute myocardial infarction I25.2 ECG COMPLETE 3. Pulmonary embolism without acute cor pulmonale, unspecified chronicity, unspecified pulmonary embolism type (HCC) I26.99 4. Carotid bruit, unspecified laterality R09.89 US CAROTID ARTERIES [facility] 5. Essential hypertension I10 6. Mixed hyperlipidemia E78.2 7. Obstructive sleep apnea syndrome G47.33 8. Hypothyroidism, unspecified type E03.9 9. History of DVT (deep vein thrombosis) Z86.718 10. Coronary stent patent Z95.5 11. Coronary artery disease due to lipid rich plaque I25.10 I25.83 He has history of stable coronary artery disease status post stent about 20 years ago. She is able to do her activities of daily living at home with no chest tightness or heaviness. The patient had nuclear SPECT scan in May 2023 which did not show ischemia patient has preserved LV systolic function on the recent 2D echocardiogram. I think she can proceed with her hiatal hernia surgery laparoscopically. The patient was advised to keep taking Lasix 20 mg daily and potassium chloride 20 mEq daily because of her 2+ tricuspid regurgitation and moderate pulmonary artery hypertension which might have been due to her pulmonary embolus. The patient will continue taking Eliquis 5 mg twice daily and hold it for 2 days prior to the hiatal hernia surgery. I advised her to watch for signs and symptoms of bleeding closely. She can decrease the dose of Eliquis to 2.5 mg twice daily after surgery. If her blood pressure is elevated in future, she could be started on low-dose of lisinopril 5 mg daily for cardiovascular protection. Patient is counseled at length regarding importance of aggressive risk factor modification including compliance with medication, increased activity/exercise, low cholesterol low fat diet. Sourav Marcial MD, FACC. Lead Pourer, Dept of Cardiology and Medicine, [facility]. Fur Designer of Ambulatory Cardiology, [facility]. Fur Designer of Cardiac Catheterization laboratory, [facility]. Clinical Asst. channel account manager, [facility] and [facility] [[email or web address]] Staff Monogram Machine Operator, Heart, Vascular and Thoracic [place], [facility]. documented in this encounterE[facility]12-[facility] History of Present illness Narrative* Humza Camejo MD - 08/02/2024 3:30 PM EST Tmax: <21 per outside; Pachy: 550, 572 Lasers and Surgeries: OD: CEIOL OS: CEIOL Ocular Medication Intol and Non-efficacy: Now on latan 08/18, brim 2/2 (missed this AM) -HVF 10/2023, high false positives and false negatives turned off OD inf arc OS inf arc -OCT 04/2024 OD sup and inf wedge, stable OS sup wedge, stable # Primary open angle glaucoma (POAG) severe both eyes - MRI brain reportedly fine - OCT retinal nerve fiber layer stable both eyes - continue brimonidine for neuroprotection - follow 3 months, visual field Discussed continuation of drop usage to control chronic glaucoma # 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 documented in this encounterElyria [facility]12-04-2024 Nurse Note* Gina Dietrich LPN - 07/21/2024 5:26 PM EST AMBULATORY PATIENT EDUCATION NOTE TOPIC: GI PROCEDURES: Biopsy Esophagogastroduodenoscopy(EGD) with or without biopies based on clinical findings, removal of polyps or lesions READINESS TO LEARN INSTRUCTION PROVIDED TO: Patient and family member COGNITIVE ABILITY: Alert and oriented PTED MOTIVATION TO LEARN: Interested FAMILY SUPPORT: High - Very involved in pt care IPATIENT LEARNS BEST BY: Written Instruction - Hand-outs Verbal Instruction FACTORS AFFECTING LEARNING: None PHYSICAL LIMITATIONS AFFECTING LEARNING: None LEARNING RESPONSE METHOD OF INSTRUCTION: Individual instruction PATIENT / FAMILY RESPONSE: Verbalizes understanding of: WORSENING CONDITION- Signs and symptoms of aworsening condition that warrant a call to the physician FOLLOW-UP PLAN: Patient instructed to call with any further issues SUPPLEMENTAL MATERIAL: Procedure Discharge Instructions REFERRAL (RECOMMENDATION): None [facility]12-04-2024 Nurse Note* Gina Dietrich LPN - 07/21/2024 5:26 PM EST AMBULATORY PATIENT EDUCATION NOTE TOPIC: GI PROCEDURES: Biopsy Esophagogastroduodenoscopy(EGD) with or without biopies based on clinical findings, removal of polyps or lesions READINESS TO LEARN INSTRUCTION PROVIDED TO: Patient and family member COGNITIVE ABILITY: Alert and oriented PTED MOTIVATION TO LEARN: Interested FAMILY SUPPORT: High - Very involved in pt care IPATIENT LEARNS BEST BY: Written Instruction - Hand-outs Verbal Instruction FACTORS AFFECTING LEARNING: None PHYSICAL LIMITATIONS AFFECTING LEARNING: None LEARNING RESPONSE METHOD OF INSTRUCTION: Individual instruction PATIENT / FAMILY RESPONSE: Verbalizes understanding of: WORSENING CONDITION- Signs and symptoms of aworsening condition that warrant a call to the physician FOLLOW-UP PLAN: Patient instructed to call with any further issues SUPPLEMENTAL MATERIAL: Procedure Discharge Instructions REFERRAL (RECOMMENDATION): None * Trina Singh RN - 07/21/2024 4:31 PM EST PRE OP LEARNING ASSESSMENT PROCEDURE/SURGERY: GI PROCEDURES: EGD READINESS TO LEARN COGNITIVE ABILITY: Alert and oriented MOTIVATION TO LEARN: Eager FAMILY SUPPORT: High - Very involved in pt care PATIENT LEARNS BEST BY: Individual Instruction Verbal Instruction FACTORS AFFECTING LEARNING: None PHYSICAL LIMITATIONS AFFECTING LEARNING: None Electronically Signed By: Trina Singh RN In Department: GASTROENTEROLOGY documented in this encounterElyria [facility] Hospital12-04-2024 NoteQ3 Patient Name: Lauren Alcaraz Procedure Date: 07/21/2024 4:12 PM Date of : 1940 Admit Type: Outpatient Age: 83 Gender: Female Note Status: Finalized Attending MD: Eliazar Brown MD, [id number] Procedure: Upper GI endoscopy Indications: Hiatal hernia Providers: Eliazar Brown MD Patient Profile: Refer to note in patient chart for documentation of history and physical. Referring Physician: Anila De Paz MD (Referring MD) Medicines: Monitored Anesthesia Care Complications: No immediate complications. Requesting Provider: Procedure: Pre-Anesthesia Assessment: - Prior to the procedure, a History and Physical was performed, and patient medications and allergies were reviewed. The patient is competent. The risks and benefits of the procedure and the sedation options and risks were discussed with the patient. All questions were answered and informed consent was obtained. Patient identification and proposed procedure were verified by the physician in the pre-procedure area. Mental Status Examination: alert and oriented. Airway Examination: normal oropharyngeal airway and neck mobility. Respiratory Examination: clear to auscultation. CV Examination: normal. Prophylactic Antibiotics: The patient does not require prophylactic antibiotics. Prior Anticoagulants: The patient has taken no anticoagulant or antiplatelet agents. ASA Grade Assessment: II - A patient with mild systemic disease. After reviewing the risks and benefits, the patient was deemed in satisfactory condition to undergo the procedure. The anesthesia plan was to use monitored anesthesia care (MAC). Immediately prior to administration of medications, the patient was re-assessed for adequacy to receive sedatives. The heart rate, respiratory rate, oxygen saturations, blood pressure, adequacy of pulmonary ventilation, and response to care were monitored throughout the procedure. The physical status of the patient was re-assessed after the procedure. After obtaining informed consent, the endoscope was passed under direct vision. Throughout the procedure, the patient's blood pressure, pulse, and oxygen saturations were monitored continuously. The Endoscope was introduced through the mouth, and advanced to the second part of duodenum. The upper GI endoscopy was accomplished without difficulty. The patient tolerated the procedure well. Moderate Sedation: MAC anesthesia was administered by the anesthesia team. Findings: The examined esophagus was normal. The gastroesophageal flap valve was visualized endoscopically and classified as Hill Grade IV (no fold, wide open lumen, hiatal hernia present). An 8 cm hiatal hernia was present. The GE junction was 28cm from the incisors, and the diaphragmatic pinch was at 36cm from the incisors. Patchy mildly erythematous mucosa was found in the prepyloric region of the stomach and at the pylorus. The examined duodenum was normal. Impression: - Normal esophagus. - 8 cm hiatal hernia. - Erythematous mucosa in the prepyloric region of the stomach and pylorus. - Normal examined duodenum. - No specimens collected. Estimated Blood Loss: Estimated blood loss: none. Recommendation: - Discharge patient to home (with escort). - Resume previous diet today. - Continue present medications. - Return to referring provider at appointment to be scheduled. - Patient has a contact number available for emergencies. The signs and symptoms of potential delayed complications were discussed with the patient. Return to normal activities tomorrow. Written discharge instructions were provided to the (more content not included)...[id number] Nurse Note* Trina Singh RN - 07/21/2024 4:31 PM EST PRE OP LEARNING ASSESSMENT PROCEDURE/SURGERY: GI PROCEDURES: EGD READINESS TO LEARN COGNITIVE ABILITY: Alert and oriented MOTIVATION TO LEARN: Eager FAMILY SUPPORT: High - Very involved in pt care PATIENT LEARNS BEST BY: Individual Instruction Verbal Instruction FACTORS AFFECTING LEARNING: None PHYSICAL LIMITATIONS AFFECTING LEARNING: None Electronically Signed By: Trina Singh RN In Department: GASTROENTEROLOGY [facility]12-02-2024 Evaluation note* Diagnosis Onset Date Resolution Status Admit Date Left knee DJD acute July 3:39pm Osteoarthritis of right knee noneact song July 19, 2024 3:39pm Depression acute October 14, 2024 1:03pm Falls frequently acute October 14, 2024 1:03pm Hiatal hernia acute October 142024 1:03pm History of cholecystectomy acute October 14, 2024 1:03pm History of repair of hiatal hernia acute October 14, 2 025 1:03pm Hypothyroidism acute September 192024 1:03pm Seizure disorder acute October 14, 2024 1:03pm Difficulty swallowing chronic Feb ruary 2024 1:03pm Kyphoscoliosis deformity of spine chronic October 14, 025 1:03pm RSD (reflex sympathetic dystrophy) chronic October 14, 2 025 1:03pm Bronchiectasis chronic October 22, 2024 2:11pm Kyphoscoliosis deformity of spine chronic October 22, 2024 2:11pm [facility] Work Phone: 1(334) 655-706512-02-2024 Telephone encounter Note* Telephone Encounter - Dottie Horowitz LPN - 07/19/2024 3:53 PM EST Printed from [employer]. Scanned into [employer] through Onbase scanning. Dottie Horowitz LPN [facility]12-02-2024 Miscellaneous Notes* Telephone Encounter - Dottie Horowitz LPN - 07/19/2024 3:53 PM EST Printed from [employer]. Scanned into [employer] through Onbase scanning. Dottie Horowitz LPN * Telephone Encounter - Willa Torres APRN.ALBERT - 07/19/2024 3:43 PM EST Please request last cardiac OV and testing. documented in this encounterElyria [facility] Hospital12-02-2024 Telephone encounter Note * Telephone Encounter - Willa Torres APRN.CNP - 07/19/2024 3:43 PM EST Please request last cardiac OV and testing. [facility]11-29-2024 History and physical note* Willa Torres APRN.CNP - 07/16/2024 2:48 PM EST Images from the original note were not included. 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 CSF AD biomarkers negative MS (multiple sclerosis) (HCC) Assessment: dx given, no tx ever received History of complex partial epilepsy Assessment: controlled on rx, following neurology Restless legs syndrome Assessment: controlled on rx Atherosclerosis of coronary artery Assessment: s/p multiple stent interventions 2001, 2002, 2005 and 2006, c/w statin, and daily ASA, following WHG, last OV 11/12/2023 scanned into epic. Stress test 05/2023 negative for ischemia. Pt denies any current CP, palpitations, sob new or worsening cardiac symptoms. Essential hypertension Assessment: controlled on rx Last 14 BP Last 14 Encounter BP Readings: Date: BP: 07/16/2024 161/81 07/01/2024 106/64 06/18/2024 111/56 05/17/2024 138/72 03/25/2024 137/81 10/16/2023 107/55 06/16/2023 118/72 03/14/2023 135/86 11/13/2022 113/69 07/25/2022 133/72 04/11/2022 117/77 01/23/2022 114/72 11/13/2021 125/68 04/11/2021 129/67 Hyperlipidemia Assessment: c/w statin Seizure disorder (HCC) Assessment: controlled on rx, last known seizure over 10 years ago History of DVT (deep vein thrombosis) Assessment: hx 2011, tx with coumadin, no recurrence Obstructive sleep apnea syndrome Assessment: c/w CPAP Bronchiectasis (HCC) Assessment: rx as needed Gastroesophageal reflux disease Assessment: controlled on rx Esophageal stricture Assessment: s/p dilation, reports some mild dysphagia 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 [place] Activity Status Index: METS: Walk indoors, such as around the house (1.75 METs) Do light work around the house, such as dusting or washing dishes (2.70 METs) Take care of self; that is eating, dressing, bathing, using the toilet (2.75 METs) Walk a block or two on level ground (2.75 METs) DASI Score: 9.95 (walker) Patient denies any chest pain or undue shortness of breath with the above physical activity. Clinical Frailty Scale: 5. Mildly frail STOP-Bang Score: Snores loudly Patient over 50 years old Denies feeling tired, fatigued, or sleepy during the daytime Has not been observed to stop breathing or choking/gasping during sleep Denies having high blood pressure BMI less than or equal to 35 kg/m^2 Does not have a large neck Non-male patient STOP-Bang Score: 2 [id number] Score: Age: >=75 Sex: female CHF history: No Hypertension history: No Stroke/TIA/thromboembolism history: Yes Vascular disease history: Yes Diabetes history: No [id number] Score: 6 ARISCAT Score: Age: >80 Preoperative SpO2: >=96% Respiratory infection in the last month: No Preoperative anemia: No Surgical incision: peripheral Duration of surgery: <2 hrs Emergency procedure: No ARISCAT Score: 16 ANESTHESIA FINDINGS: Intubation History: No history of difficult intubation Significant Anesthesia Considerations: potential slow emergence Airway History: No history of difficult airway I - PHYSICAL EVALUATION AIRWAY Patient intubated: No. Tracheostomy tube not present Mallampati: II. TM distance: >3 FB. Neck ROM: limited flexion and extension. Mouth opening: adequate. Short neck: no. Additional comments: +caps/back/sides. Thick neck: no [place] present: no Lip Bite Test: I Microretrognathia/Micronagthia/Recessed Chin: No DENTAL Dental findings: teeth intact. II - ANESTHESIA PLAN Anesthetic Plan: other Beta Oxana Monitoring Plan Post Procedure Analgesic Plan Prepared for Surgery: optimally prepared for surgery. CONSULTS: Patient does not require consults for optimization at this time Planned Anesthetic: other anesthesia choice The Following Tests/Procedures Have Been Initiated: No orders of the defined types were placed in this encounter. REASON FOR VISIT: Lauren Alcaraz is a 83 year old female who is scheduled for EGD at the requestof Alisa Christianson MDfor consultation. My final recommendation will be communicatedback to the requesting physician by way of shared medical record or letter. Subjective The patient has the following: COVID-19 Immunization Status Overdue - Covid-19 Vaccine ( season) Overdue since 04/18/2024 05/22/2021 Imm Admin: COVID-19 original vaccine, age 12+ yr, monovalent (PFIZER- BIONTECH - PURPLE TOP) 10/28/2020 Imm Admin: COVID-19 original vaccine, age 12+ yr, monovalent (PFIZER- BIONTECH - PURPLE TOP) 10/07/2020 Imm Admin: COVID-19 original vaccine, age 12+ yr, monovalent (PFIZER- BIONTECH - PURPLE TOP) Only the first 3 history entries have been loaded, but more history exists. CHIEF COMPLAINT: Pre-op exam HPI: Lauren Alcaraz is a 83 year old seen for PAC due to scheduled above surgery because of a hiatal hernia. , Anila Ambriz MD HPI: This is a 83 year old female, with PMH remarkable for CAD S/P stent placement, DVT, On Eliquis, appendectomy, hysterectomy, bilateral inguinal hernia repair x2, severe xyphoscoliosis, hx of breast cancer who presents with a symptomatic hiatal hernia. States that in the past six months has experienced epigastric abdominal pain, nausea vomiting, early satiety, worsening reflux symptoms. Her weight has been slowly dropping to the point that she has lost 50 pounds in the last 2 years. No changes in BM. Most recent EGD not available but the patient states is being a while. REVIEW OF SYSTEMS: General: Positive for: weight loss >10% of BW in last 6 months (50lb 2/2 HPI over the past 2 years). Neurological: +RLS, on rx Positive for: dementia (on rx), multiple sclerosis (dx, never received tx's), Parkinson's disease (?), seizures (on rx, complex/partial, last known seizure >10 years) and TIA (2-3, 4 years). Negative for: strokes. Respiratory: Positive for: asthma (rx as needed). Negative for: COPD, current cough, dyspnea, pneumonia within 6 weeks, tobacco use, URI < 2 weeksand obstructive sleep apnea. Cardiovascular: Positive for: anticoagulation therapy (Eliquis, ASA), atrial fibrillation (Paroxymal), CAD, DVT/PE (unknown cause, BLE's) and hyperlipidemia Patient's last office visit The following tests and/or procedures were performed: cardiac stents (LAD). Negative for: abdominal aortic aneurysm, AICD/PPM, angina, arrhythmia, chest pain, CHF, congenital heart defect, hypertension, recent UT, PVD, open heart surgery and valve surgery. GI: See HPI. Positive for: dysphagia, esophageal stricture (hx dilation), GERD (hx, otc rx as needed) and vomiting (intermittently) Negative for: abdominal pain, hepatitis, irritable bowel syndrome, inflammatory bowel disease, liver disease, nausea, pancreatitis and ETOH >2 drinks/day. : Positive for: urinary incontinence (+OAB, on rx). TORCH BRAZER: Negative for abnormal vaginal bleeding, abnormal vaginal discharge. Endocrine: Positive for: hypothyroidism (on rx). Negative for: diabetes mellitus. Hematology: Positive for: bruises/bleeds easily and chronic anti-coagulation/platelet meds. Patient is on anti-coagulation/platelet medication(s): Aspirin and DOAC. Negative for: anemia and transfusion of at least 4 units within 72 hours prior to surgery. Oncology: +breast cancer s/p lumpectomy and XRT Psych: Positive for: depression (on rx). Negative for: anxiety and Marijuana Use. Musculoskeletal: Hx thoracic/lumbar laminectomies, following pain management, Dr. Bloom +osteoporosis, Prolia Positive for: back pain, joint pain and swelling (rx as needed). Skin: Negative for lesions, rash and itching. Implanted Devices: No implanted devices. 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 Back pain Cancer (HCC) Complex partial seizures (HCC) Dementia (HCC) Depression DVT (deep venous thrombosis) (HCC) Dysphagia Frequent falls GERD (gastroesophageal reflux disease) Glaucoma suspect of both eyes Heart disease History of heart attack Hypercholesterolemia Hypertension Low iron Presenile dementia, uncomplicated (HCC) Pseudophakia Restless leg syndrome Seizure (HCC) TIA (transient ischemic attack) PAST SURGICAL HISTORY Procedure Laterality Date CC CORONARY STENT ~1989 PAST SURGICAL HISTORY OF Ablation T 11 PAST SURGICAL HISTORY OF hernia surgery PAST SURGICAL HISTORY OF hammer toe correction PAST SURGICAL HISTORY OF lumbar laminectomy PAST SURGICAL HISTORY OF carpal tunnel release PAST SURGICAL HISTORY OF tonsillectomy and adenoidectomy PAST SURGICAL HISTORY OF lumpectomy of left breast PAST SURGICAL HISTORY OF cardiac catheterization PAST SURGICAL HISTORY OF EGD PAST SURGICAL HISTORY OF colonoscopy PAST SURGICAL HISTORY OF ventral hernia repair PAST SURGICAL HISTORY OF cataract surgery PAST SURGICAL HISTORY OF appendectomy PAST SURGICAL HISTORY OF kyphoplasty REMV CATARACT EXTRACAP,INSERT LENS Bilateral FAMILY HISTORY Problem Relation Age of Onset No Ocular Disease Mother Stroke Mother Arthritis Mother No Ocular Disease Father Heart Attack Father 40 Hypertension Father Alcohol abuse Father other (oth) Sister anemia Social History Tobacco Use Smoking status: Never Smokeless tobacco: Never Vaping Use Vaping status: Never Used Substance Use Topics Alcohol use: Yes Comment: Weekly 1-2 drinks Drug use: Never Prior to Admission medications as of 07/20/24 8936 Medication Sig Last Dose Taking brimonidine (ALPHAGAN) 0.2 % ophthalmic solution Use 1 Drop in both eyes two times a day. Taking Yes latanoprost (XALATAN) 0.005 % ophthalmic solution Use 1 Drop in both eyes daily at bedtime. Taking Yes d-mannose 500 mg capsule Take 500 mg by mouth once daily. Taking Yes cetirizine (ZYRTEC) 10 mg tablet Take 10 mg by mouth once daily as needed. Taking Yes fluticasone (ALLERGY RELIEF, FLUTICASONE,) 50 mcg/actuation nasal spray Use 1 [place] in each nostrilonce daily. Taking Yes donepezil (ARICEPT) 10 mg tablet Take 1 tablet by mouth daily with breakfast. Taking Yes furosemide (LASIX) 20 mg tablet Take 0.5 tablets by mouth every afternoon. As needed Taking Yes gabapentin (NEURONTIN) 100 mg capsule as needed. Taking Yes traMADol (ULTRAM) 50 mg tablet Take 25 mg by mouth two times a day. Taking Yes famotidine (PEPCID) 10 mg tablet Take 10 mg by mouth twice daily. Taking Yes DODEX 1,000 mcg/mL Inject 1,000 mcg intramuscularly once every month. Vitamin [id number] Taking Yes ammonium lactate (LAC-HYDRIN) 12 % lotion Taking Yes MULTIVITAMIN ORAL Take by mouth once daily. Taking Yes albuterol (PROVENTIL) 2.5 mg /3 mL (0.083 %) nebulizer solution as needed. Taking Yes Lactobacillus acidophilus (PROBIOTIC) 10 billion cell cap once daily. Taking Yes pramipexole (MIRAPEX) 0.5 mg tablet Take 0.5 mg by mouth two times a day. Taking Yes vortioxetine (TRINTELLIX) 20 mg tablet Take 20 mg by mouth once daily. Taking Yes atorvastatin (LIPITOR) 40 mg tablet Take 40 mg by mouth once daily. Taking Yes ELIQUIS 5 mg tab(s) Take 5 mg by mouth two times a day. BID Taking Yes levothyroxine (SYNTHROID) 50 mcg tablet Take 50 mcg by mouth once daily. Taking Yes memantine (NAMENDA) 10 mg tablet Take 10 mg by mouth two times a day. Taking Yes MYRBETRIQ 50 mg Tb24 Taking 2 tabs once daily Taking Yes lacosamide (VIMPAT) 100 mg tab Take 1 tablet by mouth twice daily for 180 days. Taking Yes nitroglycerin sublingual (NITROQUICK) 0.4 mg SL tablet as needed. Taking Yes aspirin, enteric coated (ASPIRIN, ENTERIC COATED) 81 mg EC tablet Take 81 mg by mouth once daily. Taking Yes tolterodine ER (DETROL LA) 4 mg 24 hr capsule Take 4 mg by mouth once daily. Taking Yes denosumab (PROLIA SUBCUTANEOUS) Inject 1 Dose subcutaneously once every 6 months. Last injection November 2020 Taking Yes BD ECLIPSE LUER-BOZENA 3 mL 23 x 1 No medication comments found. ALLERGIES Allergen Reactions Propoxyphene N-Acet* Other: See Comments hallucinations Adhesive Tape-Silic* Unknown Other reaction(s): Other (comments) Not sure which type of tape but red skin. Doxycycline Vomiting Lamictal [Lamotrigi* Swelling Lips swelling Latex Rash Moxifloxacin Mental Status Change Percocet [Oxycodone* Mental Status Change Propoxyphene Mental Status Change, Other: See Comments Hallucinations Includes Darvocet Zolpidem Mental Status Change Adhesive Other: See Comments Not sure which type of tape but red skin. Diclofenac Sodium Other: See Comments Topical gel resulted in hand swelling. Oxycodone Mental Status Change Objective PHYSICAL EXAM: General: alert and oriented (x3) and healthy appearance. Pertinent negatives noted - not distressed. Skin: normal color, no rash or lesions. HEENT: EOM intact and pupils equal round. Pertinent negatives noted - no carotid bruit. Cardiovascular: regular rate and rhythm, normal S1 and S2, no rub, murmurs, or gallop. Respiratory: normal breath sounds, no wheezes or crackles. No chest wall deformity or tenderness. Abdomen: soft. Pertinent negatives noted - not tender. Extremities: Positive for edema (BLE, mild). Neurological: normal cognition and motor skills. Gait normal. No weakness or sensory deficit. PAIN ASSESSMENT: VITALS: BP 161/81 Pulse 62 Wt 98 lb (44.5kg) SpO2 96% Diagnostic tests reviewed for today's visit: Lab Value Units Date High Low HB No results within date range. HCT No results within date range. WBC No results within date range. PLT No results within date range. NA No results within date range. K No results within date range. GLUC No results within date range. BUN No results within date range. CREAT 0.84 mg/dL 06/23/2024 0.96 0.58 PTSEC No results within date range. INR No results within date range. APTT No results within date range. ALT No results within date range. AST No results within date range. TBILI No results within date range. TSH No results within date range. Lab Value Units Date High Low HCGQT No results within date range. UHCG No results within date range. HCG, BODY* No results within date range. Lab Value Units Date High Low ABORHD No results within date range. ABSCREEN No results within date range. No results found for: HBA1C No results found for this or any previous visit (from the past 8760 hour(s)). Recent Results (from the past 82013 hour(s)) ECHO Collection Time: 07/09/24 11:20 AM Impression CONCLUSIONS: - Technically difficult exam due to body habitus. - Exam indication: Chest Pain - The left ventricle is normal in size. There is mild upper septal left ventricular hypertrophy. Left ventricular systolic function is normal. EF = 59 5% (2D biplane). Indeterminate left ventricular diastolic function. - The right ventricle is normal in size. Right ventricular systolic function is normal. - There is moderate (2+) tricuspid valve regurgitation. - Estimated right ventricular systolic pressure is 58 mmHg plus right atrial pressure. Estimated right atrial pressure is not included as the IVC was not seen. - The patient has not had a prior CC echocardiographic exam for comparison. * * * Final * * * Instructions Given to Patient: Instructions located in the after visit summary. Patient given verbal and written preop instructions and voices comprehension and compliance. SIGNATURE: Willa Torres APRN.CNP PATIENT NAME: Lauren Alcaraz DATE: July 16, 2024 TIME: 2:48 PM PAGER/CONTACT #: [id number] History and physical note* Willa Torres APRN.CNP - 07/16/2024 2:48 PM EST Images from the original note were not included. 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 CSF AD biomarkers negative MS (multiple sclerosis) (HCC) Assessment: dx given, no tx ever received History of complex partial epilepsy Assessment: controlled on rx, following neurology Restless legs syndrome Assessment: controlled on rx Atherosclerosis of coronary artery Assessment: s/p multiple stent interventions 2001, 2002, 2005 and 2006, c/w statin, and daily ASA, following WHG, last OV 11/12/2023 scanned into epic. Stress test 05/2023 negative for ischemia. Pt denies any current CP, palpitations, sob new or worsening cardiac symptoms. Essential hypertension Assessment: controlled on rx Last 14 BP Last 14 Encounter BP Readings: Date: BP: 07/16/2024 161/81 07/01/2024 106/64 06/18/2024 111/56 05/17/2024 138/72 03/25/2024 137/81 10/16/2023 107/55 06/16/2023 118/72 03/14/2023 135/86 11/13/2022 113/69 07/25/2022 133/72 04/11/2022 117/77 01/23/2022 114/72 11/13/2021 125/68 04/11/2021 129/67 Hyperlipidemia Assessment: c/w statin Seizure disorder (HCC) Assessment: controlled on rx, last known seizure over 10 years ago History of DVT (deep vein thrombosis) Assessment: hx 2011, tx with coumadin, no recurrence Obstructive sleep apnea syndrome Assessment: c/w CPAP Bronchiectasis (HCC) Assessment: rx as needed Gastroesophageal reflux disease Assessment: controlled on rx Esophageal stricture Assessment: s/p dilation, reports some mild dysphagia 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 [place] Activity Status Index: METS: Walk indoors, such as around the house (1.75 METs) Do light work around the house, such as dusting or washing dishes (2.70 METs) Take care of self; that is eating, dressing, bathing, using the toilet (2.75 METs) Walk a block or two on level ground (2.75 METs) DASI Score: 9.95 (walker) Patient denies any chest pain or undue shortness of breath with the above physical activity. Clinical Frailty Scale: 5. Mildly frail STOP-Bang Score: Snores loudly Patient over 50 years old Denies feeling tired, fatigued, or sleepy during the daytime Has not been observed to stop breathing or choking/gasping during sleep Denies having high blood pressure BMI less than or equal to 35 kg/m^2 Does not have a large neck Non-male patient STOP-Bang Score: 2 [id number] Score: Age: >=75 Sex: female CHF history: No Hypertension history: No Stroke/TIA/thromboembolism history: Yes Vascular disease history: Yes Diabetes history: No [id number] Score: 6 ARISCAT Score: Age: >80 Preoperative SpO2: >=96% Respiratory infection in the last month: No Preoperative anemia: No Surgical incision: peripheral Duration of surgery: <2 hrs Emergency procedure: No ARISCAT Score: 16 ANESTHESIA FINDINGS: Intubation History: No history of difficult intubation Significant Anesthesia Considerations: potential slow emergence Airway History: No history of difficult airway I - PHYSICAL EVALUATION AIRWAY Patient intubated: No. Tracheostomy tube not present Mallampati: II. TM distance: >3 FB. Neck ROM: limited flexion and extension. Mouth opening: adequate. Short neck: no. Additional comments: +caps/back/sides. Thick neck: no [place] present: no Lip Bite Test: I Microretrognathia/Micronagthia/Recessed Chin: No DENTAL Dental findings: teeth intact. II - ANESTHESIA PLAN Anesthetic Plan: other Beta Oxana Monitoring Plan Post Procedure Analgesic Plan Prepared for Surgery: optimally prepared for surgery. CONSULTS: Patient does not require consults for optimization at this time Planned Anesthetic: other anesthesia choice The Following Tests/Procedures Have Been Initiated: No orders of the defined types were placed in this encounter. REASON FOR VISIT: Lauren Alcaraz is a 83 year old female who is scheduled for EGD at the requestof Alisa Christianson MDfor consultation. My final recommendation will be communicatedback to the requesting physician by way of shared medical record or letter. Subjective The patient has the following: COVID-19 Immunization Status Overdue - Covid-19 Vaccine (4 - 2024-25 season) Overdue since 04/18/2024 05/22/2021 Imm Admin: COVID-19 original vaccine, age 12+ yr, monovalent (PFIZER- BIONTECH - PURPLE TOP) 10/28/2020 Imm Admin: COVID-19 original vaccine, age 12+ yr, monovalent (PFIZER- BIONTECH - PURPLE TOP) 10/07/2020 Imm Admin: COVID-19 original vaccine, age 12+ yr, monovalent (PFIZER- BIONTECH - PURPLE TOP) Only the first 3 history entries have been loaded, but more history exists. CHIEF COMPLAINT: Pre-op exam HPI: Lauren Alcaraz is a 83 year old seen for PAC due to scheduled above surgery because of a hiatal hernia. , Dr. De Paz, Anila Kumar MD HPI: This is a 83 year old female, with PMH remarkable for CAD S/P stent placement, DVT, On Eliquis, appendectomy, hysterectomy, bilateral inguinal hernia repair x2, severe xyphoscoliosis, hx of breast cancer who presents with a symptomatic hiatal hernia. States that in the past six months has experienced epigastric abdominal pain, nausea vomiting, early satiety, worsening reflux symptoms. Her weight has been slowly dropping to the point that she has lost 50 pounds in the last 2 years. No changes in BM. Most recent EGD not available but the patient states is being a while. REVIEW OF SYSTEMS: General: Positive for: weight loss >10% of BW in last 6 months (50lb 2/2 HPI over the past 2 years). Neurological: +RLS, on rx Positive for: dementia (on rx), multiple sclerosis (dx, never received tx's), Parkinson's disease (?), seizures (on rx, complex/partial, last known seizure >10 years) and TIA (2-3, 4 years). Negative for: strokes. Respiratory: Positive for: asthma (rx as needed). Negative for: COPD, current cough, dyspnea, pneumonia within 6 weeks, tobacco use, URI < 2 weeksand obstructive sleep apnea. Cardiovascular: Positive for: anticoagulation therapy (Eliquis, ASA), atrial fibrillation (Paroxymal), CAD, DVT/PE (unknown cause, BLE's) and hyperlipidemia Patient's last office visit The following tests and/or procedures were performed: cardiac stents (LAD). Negative for: abdominal aortic aneurysm, AICD/PPM, angina, arrhythmia, chest pain, CHF, congenital heart defect, hypertension, recent UT, PVD, open heart surgery and valve surgery. GI: See HPI. Positive for: dysphagia, esophageal stricture (hx dilation), GERD (hx, otc rx as needed) and vomiting (intermittently) Negative for: abdominal pain, hepatitis, irritable bowel syndrome, inflammatory bowel disease, liver disease, nausea, pancreatitis and ETOH >2 drinks/day. : Positive for: urinary incontinence (+OAB, on rx). TORCH BRAZER: Negative for abnormal vaginal bleeding, abnormal vaginal discharge. Endocrine: Positive for: hypothyroidism (on rx). Negative for: diabetes mellitus. Hematology: Positive for: bruises/bleeds easily and chronic anti-coagulation/platelet meds. Patient is on anti-coagulation/platelet medication(s): Aspirin and DOAC. Negative for: anemia and transfusion of at least 4 units within 72 hours prior to surgery. Oncology: +breast cancer s/p lumpectomy and XRT Psych: Positive for: depression (on rx). Negative for: anxiety and Marijuana Use. Musculoskeletal: Hx thoracic/lumbar laminectomies, following pain management, Dr. Bloom +osteoporosis, Prolia Positive for: back pain, joint pain and swelling (rx as needed). Skin: Negative for lesions, rash and itching. Implanted Devices: No implanted devices. 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 Back pain Cancer (HCC) Complex partial seizures (HCC) Dementia (HCC) Depression DVT (deep venous thrombosis) (HCC) Dysphagia Frequent falls GERD (gastroesophageal reflux disease) Glaucoma suspect of both eyes Heart disease History of heart attack Hypercholesterolemia Hypertension Low iron Presenile dementia, uncomplicated (HCC) Pseudophakia Restless leg syndrome Seizure (HCC) TIA (transient ischemic attack) PAST SURGICAL HISTORY Procedure Laterality Date CC CORONARY STENT ~1989 PAST SURGICAL HISTORY OF Ablation T 11 PAST SURGICAL HISTORY OF hernia surgery PAST SURGICAL HISTORY OF hammer toe correction PAST SURGICAL HISTORY OF lumbar laminectomy PAST SURGICAL HISTORY OF carpal tunnel release PAST SURGICAL HISTORY OF tonsillectomy and adenoidectomy PAST SURGICAL HISTORY OF lumpectomy of left breast PAST SURGICAL HISTORY OF cardiac catheterization PAST SURGICAL HISTORY OF EGD PAST SURGICAL HISTORY OF colonoscopy PAST SURGICAL HISTORY OF ventral hernia repair PAST SURGICAL HISTORY OF cataract surgery PAST SURGICAL HISTORY OF appendectomy PAST SURGICAL HISTORY OF kyphoplasty REMV CATARACT EXTRACAP,INSERT LENS Bilateral FAMILY HISTORY Problem Relation Age of Onset No Ocular Disease Mother Stroke Mother Arthritis Mother No Ocular Disease Father Heart Attack Father 40 Hypertension Father Alcohol abuse Father other (oth) Sister anemia Social History Tobacco Use Smoking status: Never Smokeless tobacco: Never Vaping Use Vaping status: Never Used Substance Use Topics Alcohol use: Yes Comment: Weekly 1-2 drinks Drug use: Never Prior to Admission medications as of 07/20/24 1055 Medication Sig Last Dose Taking brimonidine (ALPHAGAN) 0.2 % ophthalmic solution Use 1 Drop in both eyes two times a day. Taking Yes latanoprost (XALATAN) 0.005 % ophthalmic solution Use 1 Drop in both eyes daily at bedtime. Taking Yes d-mannose 500 mg capsule Take 500 mg by mouth once daily. Taking Yes cetirizine (ZYRTEC) 10 mg tablet Take 10 mg by mouth once daily as needed. Taking Yes fluticasone (ALLERGY RELIEF, FLUTICASONE,) 50 mcg/actuation nasal spray Use 1 [place] in each nostrilonce daily. Taking Yes donepezil (ARICEPT) 10 mg tablet Take 1 tablet by mouth daily with breakfast. Taking Yes furosemide (LASIX) 20 mg tablet Take 0.5 tablets by mouth every afternoon. As needed Taking Yes gabapentin (NEURONTIN) 100 mg capsule as needed. Taking Yes traMADol (ULTRAM) 50 mg tablet Take 25 mg by mouth two times a day. Taking Yes famotidine (PEPCID) 10 mg tablet Take 10 mg by mouth twice daily. Taking Yes DODEX 1,000 mcg/mL Inject 1,000 mcg intramuscularly once every month. Vitamin [id number] Taking Yes ammonium lactate (LAC-HYDRIN) 12 % lotion Taking Yes MULTIVITAMIN ORAL Take by mouth once daily. Taking Yes albuterol (PROVENTIL) 2.5 mg /3 mL (0.083 %) nebulizer solution as needed. Taking Yes Lactobacillus acidophilus (PROBIOTIC) 10 billion cell cap once daily. Taking Yes pramipexole (MIRAPEX) 0.5 mg tablet Take 0.5 mg by mouth two times a day. Taking Yes vortioxetine (TRINTELLIX) 20 mg tablet Take 20 mg by mouth once daily. Taking Yes atorvastatin (LIPITOR) 40 mg tablet Take 40 mg by mouth once daily. Taking Yes ELIQUIS 5 mg tab(s) Take 5 mg by mouth two times a day. BID Taking Yes levothyroxine (SYNTHROID) 50 mcg tablet Take 50 mcg by mouth once daily. Taking Yes memantine (NAMENDA) 10 mg tablet Take 10 mg by mouth two times a day. Taking Yes MYRBETRIQ 50 mg Tb24 Taking 2 tabs once daily Taking Yes lacosamide (VIMPAT) 100 mg tab Take 1 tablet by mouth twice daily for 180 days. Taking Yes nitroglycerin sublingual (NITROQUICK) 0.4 mg SL tablet as needed. Taking Yes aspirin, enteric coated (ASPIRIN, ENTERIC COATED) 81 mg EC tablet Take 81 mg by mouth once daily. Taking Yes tolterodine ER (DETROL LA) 4 mg 24 hr capsule Take 4 mg by mouth once daily. Taking Yes denosumab (PROLIA SUBCUTANEOUS) Inject 1 Dose subcutaneously once every 6 months. Last injection November 2020 Taking Yes BD ECLIPSE LUER-BOZENA 3 mL 23 x 1 No medication comments found. ALLERGIES Allergen Reactions Propoxyphene N-Acet* Other: See Comments hallucinations Adhesive Tape-Silic* Unknown Other reaction(s): Other (comments) Not sure which type of tape but red skin. Doxycycline Vomiting Lamictal [Lamotrigi* Swelling Lips swelling Latex Rash Moxifloxacin Mental Status Change Percocet [Oxycodone* Mental Status Change Propoxyphene Mental Status Change, Other: See Comments Hallucinations Includes Darvocet Zolpidem Mental Status Change Adhesive Other: See Comments Not sure which type of tape but red skin. Diclofenac Sodium Other: See Comments Topical gel resulted in hand swelling. Oxycodone Mental Status Change Objective PHYSICAL EXAM: General: alert and oriented (x3) and healthy appearance. Pertinent negatives noted - not distressed. Skin: normal color, no rash or lesions. HEENT: EOM intact and pupils equal round. Pertinent negatives noted - no carotid bruit. Cardiovascular: regular rate and rhythm, normal S1 and S2, no rub, murmurs, or gallop. Respiratory: normal breath sounds, no wheezes or crackles. No chest wall deformity or tenderness. Abdomen: soft. Pertinent negatives noted - not tender. Extremities: Positive for edema (BLE, mild). Neurological: normal cognition and motor skills. Gait normal. No weakness or sensory deficit. PAIN ASSESSMENT: VITALS: BP 161/81 Pulse 62 Wt 98 lb (44.5kg) SpO2 96% Diagnostic tests reviewed for today's visit: Lab Value Units Date High Low HB No results within date range. HCT No results within date range. WBC No results within date range. PLT No results within date range. NA No results within date range. K No results within date range. GLUC No results within date range. BUN No results within date range. CREAT 0.84 mg/dL 06/23/2024 0.96 0.58 PTSEC No results within date range. INR No results within date range. APTT No results within date range. ALT No results within date range. AST No results within date range. TBILI No results within date range. TSH No results within date range. Lab Value Units Date High Low HCGQT No results within date range. UHCG No results within date range. HCG, BODY* No results within date range. Lab Value Units Date High Low ABORHD No results within date range. ABSCREEN No results within date range. No results found for: HBA1C No results found for this or any previous visit (from the past 8760 hour(s)). Recent Results (from the past 34372 hour(s)) ECHO Collection Time: 07/09/24 11:20 AM Impression CONCLUSIONS: - Technically difficult exam due to body habitus. - Exam indication: Chest Pain - The left ventricle is normal in size. There is mild upper septal left ventricular hypertrophy. Left ventricular systolic function is normal. EF = 59 5% (2D biplane). Indeterminate left ventricular diastolic function. - The right ventricle is normal in size. Right ventricular systolic function is normal. - There is moderate (2+) tricuspid valve regurgitation. - Estimated right ventricular systolic pressure is 58 mmHg plus right atrial pressure. Estimated right atrial pressure is not included as the IVC was not seen. - The patient has not had a prior [facility] echocardiographic exam for comparison. * * * Final * * * Instructions Given to Patient: Instructions located in the after visit summary. Patient given verbal and written preop instructions and voices comprehension and compliance. SIGNATURE: Willa Torres APRN.ALBERT PATIENT NAME: Lauren Alcaraz DATE: July 16, 2024 TIME: 2:48 PM PAGER/CONTACT #: [facility]ructions* Patient Instructions* Willa Torres APRN.CNP - 07/16/2024 2:42 PM EST Images from the original note were not included. [facility] PATIENT PREOPERATIVE INSTRUCTIONS No ref. provider found has scheduled you for your procedure at this surgery center: [facility] Scheduling Office: [phone] --[address] [place] [address]. Please read below carefully for your personalized instructions. Dietary Restrictions: - No solid food after midnight. - You may have 12 ounces of clear liquids (water, clear juices such as apple juice or gatorade, carbonated beverages, clear tea, black coffee, jello) until 2 hours before scheduled arrival at facility. Medications: Unless instructed differently below, stay on all of your medications until your surgery. If you start any new medications after today's visit, please contact your surgeon. Pre-Surgery Med Instructions Medication Instructions brimonidine (ALPHAGAN) 0.2 % ophthalmic solution As directed latanoprost (XALATAN) 0.005 % ophthalmic solution As directed d-mannose 500 mg capsule Stop 7 days before surgery cetirizine (ZYRTEC) 10 mg tablet IF needed fluticasone (ALLERGY RELIEF, FLUTICASONE,) 50 mcg/actuation nasal spray IF needed donepezil (ARICEPT) 10 mg tablet Take the day of surgery with a small sip of water furosemide (LASIX) 20 mg tablet Do not take the day of surgery gabapentin (NEURONTIN) 100 mg capsule Take the day of surgery with a small sip of water traMADol (ULTRAM) 50 mg tablet IF needed famotidine (PEPCID) 10 mg tablet Take the day of surgery with a small sip of water DODEX 1,000 mcg/mL Stop 7 days before surgery ammonium lactate (LAC-HYDRIN) 12 % lotion Do not take the day of surgery MULTIVITAMIN ORAL Stop 7 days before surgery albuterol (PROVENTIL) 2.5 mg /3 mL (0.083 %) nebulizer solution IF needed Lactobacillus acidophilus (PROBIOTIC) 10 billion cell cap Stop 7 days before surgery pramipexole (MIRAPEX) 0.5 mg tablet Take the day of surgery with a small sip of water vortioxetine (TRINTELLIX) 20 mg tablet Take the day of surgery with a small sip of water atorvastatin (LIPITOR) 40 mg tablet Take the day of surgery with a small sip of water ELIQUIS 5 mg tab(s) Stop 2 days before surgery levothyroxine (SYNTHROID) 50 mcg tablet Take the day of surgery with a small sip of water memantine (NAMENDA) 10 mg tablet Take the day of surgery with a small sip of water MYRBETRIQ 50 mg Tb24 Take the day of surgery with a small sip of water lacosamide (VIMPAT) 100 mg tab Take the day of surgery with a small sip of water nitroglycerin sublingual (NITROQUICK) 0.4 mg SL tablet IF needed aspirin, enteric coated (ASPIRIN, ENTERIC COATED) 81 mg EC tablet Take the day of surgery with a small sip of water tolterodine ER (DETROL LA) 4 mg 24 hr capsule Take the day of surgery with a small sip of water denosumab (PROLIA SUBCUTANEOUS) Do not take the day of surgery If you start any new medications after today's visit, please contact the surgeon's office. If you are currently using a [id number] injectable or oral medication for diabetes or weight loss such as Dulaglutide (Trulicity), Exenatide (Byetta, Bydureon), Liraglutide (Victoza, Saxenda), Semaglutide (Ozempic, Wegovy, Rybelsus), or Tirzepatide (Mounjaro), the medicine should be stopped at least 7 days before surgery. These medicines can cause food to remain in your stomach for a very longtime and increase the risks from surgery and anesthesia. Not stopping the medication for a long enough time may result in your surgery being rescheduled. Blood Thinning Medications: - Stop NSAIDS (Ibuprofen, Advil, Aleve, Motrin, Celebrex, Mobic, etc.) 7 days before surgery, as directed by your surgeon. - Do NOT stop aspirin or other anticoagulants without consulting with your stock unloader or prescribing physician. - Stop ALL herbal and dietary supplements 7 days before surgery. - You may take Tylenol (Acetaminophen) or any of your pain medications that do not contain aspirin or NSAIDS as needed. Important Reminders: - Candy, mints, and tobacco products are NOT permitted the morning of surgery. - Hearing aids, dentures and glasses may be worn the morning of surgery. - NO jewelry, body piercings, makeup, hairpins or contacts are to be worn the day of surgery. If you develop symptoms such as a fever, cold, or flu, or have other changes to your health within TWO DAYS of scheduled surgery or the morning of surgery, please contact the surgery center above. Personal Belongings: -Please have photo ID and insurance cards. -If you do not have a copy of advance directives on file with us, please bring a copy with you on the day of surgery. - Leave ALL valuables and money at home or with family members. For Outpatient Procedures: - YOU MUST HAVE A RESPONSIBLE CELL TECHNICIAN TAKE YOU HOME. A ASSISTANT CITY ATTORNEY OR FULFILLMENT COORDINATOR CANNOT BE MADE A RESPONSIBLE CELL TECHNICIAN. - We recommend that a responsible person stays with you overnight to take care of you. - You cannot stay in a hotel alone after outpatient surgery. You will not be permitted to have yoursurgery, if you do not have someone to take care of you. Arrival Time for Surgery: - To obtain your arrival time for surgery, call your physician's office the day before your surgery. - If your surgery is scheduled for Friday, call the Friday before. Your surgeon s appointment scheduler will tell you what time to call the office. - If you have not reached the departmental appointment scheduler by 5 P.M., call [phone] after 5 P.M. the day before your surgery. Please be aware that emergency situations arise, which may delay or change your surgical time. If this happens, we will notify you as soon as possible and regret any inconvenience. If you already have an Advance Directive, please fax a copy to [phone] or email to for it to be added to your chart. If you do not have an Advance Directive, you can find the appropriate form and more information at [email or web address]. We recommend that youcomplete the Advance Directive form found on the website and bring it with you the day of your surgery. It can be witnessed and scanned into your chart that day. Willa Torres APRN.ALBERT documented in this encounter[facility]11-[facility]24 Telephone encounter Note * Telephone Encounter - Jaqueline Del Cid RN - 07/14/2024 12:49 PM EST GI Pre-Procedure Spoke with patient: Yes Confirmed date scheduled and patient report time: Yes Procedure Planned:Esophagogastroduodenoscopy(EGD) with or without biopies based on clinical findings, removal of polyps or lesions Is the patient on blood thinners?no Procedure Instructions given to patient: Yes, and they verbalized their understanding of instructions given Patient instructed to take prescribed preparation prior to procedure:No Patient instructed to have family/friend present for procedure transport home: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 and They verbalized their understanding and agree to have a responsible adult accompany the patient to their procedure and remain in the endoscopy area. Any barriers to Patient learning: Patient/Patient Family Preservation Caseworker responded appropriately on phone. Type of instruction given: Verbal by telephone contact. Jaqueline Del Cid RN [facility]11-27-2024 Miscellaneous Notes* Telephone Encounter - Jaqueline Del Cid RN - 07/14/2024 12:49 PM EST GI Pre-Procedure Spoke with patient: Yes Confirmed date scheduled and patient report time: Yes Procedure Planned:Esophagogastroduodenoscopy(EGD) with or without biopies based on clinical findings, removal of polyps or lesions Is the patient on blood thinners?no Procedure Instructions given to patient: Yes, and they verbalized their understanding of instructions given Patient instructed to take prescribed preparation prior to procedure:No Patient instructed to have family/friend present for procedure transport home: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 and They verbalized their understanding and agree to have a responsible adult accompany the patient to their procedure and remain in the endoscopy area. Any barriers to Patient learning: Patient/Patient Family Preservation Caseworker responded appropriately on phone. Type of instruction given: Verbal by telephone contact. Jaqueline Del Cid RN documented in this encounterE[facility]11-21-2024 Telephone encounter Note * Telephone Encounter - Terri Orosco RN - 07/08/2024 11:05 AM EST Patients called back to office today. Spoke with spouse and all questions answered. Discussed need for holding blood thinner for EGD which spouse will reach out to local stock unloader for instructions. [facility]11-21-[facility] Miscellaneous Notes* Telephone Encounter - Terri Orosco RN - 07/08/2024 11:05 AM EST Patients called back to office today. Spoke with spouse and all questions answered. Discussed need for holding blood thinner for EGD which spouse will reach out to local stock unloader for instructions. * Telephone Encounter - Mary Anne Wing - 07/07/2024 9:56 AM EST Patient called in and would like someone to go over instructions with her regarding her upcoming EGD. Please call [phone] this is her phone number the number in epic is her husbands cell. Mary Anne Nielsen documented in this encounterEly[facility]11-20-2024 Telephone encounter Note * Telephone Encounter - Mary Anne Wing - 07/07/2024 9:56 AM EST Patient called in and would like someone to go over instructions with her regarding her upcoming EGD. Please call [phone] this is her phone number the number in epic is her husbands cell. Mary Anne Nielsen [facility]11-20-2024 Telephone encounter Note* Telephone Encounter - Fatimah Robbins RN - 07/07/2024 9:50 AM EST Verbal instructions given for EGD/ Instructions mailed to patient home on 07/07/2024 [facility]11-[facility] Miscellaneous Notes* Telephone Encounter - Fatimah Robbins RN - 07/07/2024 9:50 AM EST Verbal instructions given for EGD/ Instructions mailed to patient home on 07/07/2024 documented in this encounterEly[facility]11-18-2024 Evaluation note* Diagnosis Onset Date Resolution Status Admit Date Osteoarthritis of right knee noneact song July 05, 2024 1:18pm Atherosclerotic heart diseas e of [place] coronary artery without angina pectoris acute July 07, 2024 11:42am Hiatal hernia acute July 072023 11:42am Hyperlipidemia acute June 192023 11:42am Hypothyroidism acute June 192023 11:42am Presence of stent in coronar y artery acute July 07 11:42am Shortness of breath on exertion acute July 07 11:42am Vascular dementia acute Novem r 2023 11:42am aquired autoimmune encephalopathy chronic July 07 11:42am Bronchiectasis chronic June 192023 11:42am Difficulty swallowing chronic Jun 11:42am Esophageal dysphagia chronic 2023 11:42am Osteoporosis chronic June 11:42am Osteoarthritis of right knee noneact song July 12, 2024 3:46pm Left knee DJD acute July 3:39pm Osteoarthritis of right knee noneact song July 19, 2024 3:39pm Depression acute October 14, 2024 1:03pm Falls frequently acute October 14, 2024 1:03pm Hiatal hernia acute October 142024 1:03pm History of cholecystectomy acute October 14, 2024 1:03pm History of repair of hiatal hernia acute October 14, 2 025 1:03pm Hypothyroidism acute September 192024 1:03pm Seizure disorder acute October 14, 2024 1:03pm Difficulty swallowing chronic Feb ruary 2024 1:03pm Kyphoscoliosis deformity of spine chronic October 14 025 1:03pm RSD (reflex sympathetic dystrophy) chronic October 14 025 1:03pm Bronchiectasis chronic October 22, 2024 2:11pm Kyphoscoliosis deformity of spine chronic October 22, 2024 2:11pm [facility] Work Phone: [phone] 685-552711-14-2024 Instructions* Patient Instructions* Laisha Lizarraga APRN.CNP - 07/01/2024 2:32 PM EST Continue the current medications as you have been 2. Contnue to be active, busy and cognitively/socially engaged 3. Be cautious with fall prevention 4. Continue to follow w/ Dr. De Paz 5. Consider seeing the Neuromuscular dept to have the numbness/tingling in feet evaluated better -[phone] Follow up in ~3-6 months documented in this encounterElyria [facility]11-14-2024 History of Present illness Narrative* Laisha Lizarraga APRN.CNP - 07/01/2024 1:45 PM EST Lauren Alcaraz 1940 [address] [place] [facility] [address] July 01, 2024 [facility] FOLLOW-UP NOTE Accompanied by: spouse Delroy MERCY Lauren Alcaraz is a pleasant 83 year old female seen today for a follow up visit. 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 CSF AD biomarkers negative. 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 Keep working hard at the therapy and PT! 3. See what the [facility] feels about the thoracic pain tomorrow- pending that- we may consider referring you to our spine dept 4. Keep the medications the same for now Today, Lauren and her spouse returns for a routine follow up visit. She did have a visit at the [facility] and she felt that not much resulted from this - still dealing with back pain- and is now using a soft brace which helps-- her back pain is tolerable and shecontinues to work w/ Dr. Logan. She now takes tramadol 25mg BID- which does help Her knee has been buckling and she will be working on this with PT and will be having knee injections Other things she reports include: -- numbness/tingling in her feet-- may have been present for a while -- handwriting is illegible- has to type in order to correspond. She tried to write Hi my name is Lauren She feels she sleeps well, but stays up later than before- likes to stay up at least until 3am- shefeels her mind works better- she feels energized 6 hrs of sleep is a good nights of sleep for her-- My mood is better nowadays than it's ever been She remains very motivated and stays busy all day- and she actually installed new wheels on her rollator She feels she is very clear mentally and almost feels that she is improving in many ways. Vital Signs: BP 106/64 (BP Site: Left Arm, BP Position: Sitting, BP Cuff Size: Small Adult) Pulse 80 Ht 149.9 cm (4' 11) Wt 44.6 kg (98 lb 6.4 oz) LMP (LMP Unknown) BMI 19.87 kg/m Current Outpatient Medications on File Prior to Visit Medication Sig brimonidine (ALPHAGAN) 0.2 % ophthalmic solution Use 1 Drop in both eyes two times a day. latanoprost (XALATAN) 0.005 % ophthalmic solution Use 1 Drop in both eyes daily at bedtime. d-mannose 500 mg capsule Take 500 mg by mouth once daily. cetirizine (ZYRTEC) 10 mg tablet Take 10 mg by mouth once daily as needed. fluticasone (ALLERGY RELIEF, FLUTICASONE,) 50 mcg/actuation nasal spray Use 1 [place] in each nostrilonce daily. donepezil (ARICEPT) 10 mg tablet Take 1 tablet by mouth daily with breakfast. furosemide (LASIX) 20 mg tablet Take 0.5 tablets by mouth every afternoon. gabapentin (NEURONTIN) 100 mg capsule as needed. traMADol (ULTRAM) 50 mg tablet Take 50 mg by mouth as needed. famotidine (PEPCID) 10 mg tablet Take 10 mg by mouth twice daily. DODEX 1,000 mcg/mL Inject 1,000 mcg intramuscularly once every month. Vitamin E-31-[id number] ammonium lactate (LAC-HYDRIN) 12 % lotion BD ECLIPSE LUER-BOZENA 3 mL 23 x 1 MULTIVITAMIN ORAL Take by mouth once daily. albuterol (PROVENTIL) 2.5 mg /3 mL (0.083 %) nebulizer solution as needed. Lactobacillus acidophilus (PROBIOTIC) 10 billion cell cap once daily. pramipexole (MIRAPEX) 0.5 mg tablet Take 0.5 mg by mouth two times a day. vortioxetine (TRINTELLIX) 20 mg tablet Take 20 mg by mouth once daily. atorvastatin (LIPITOR) 40 mg tablet Take 40 mg by mouth once daily. ELIQUIS 5 mg tab(s) Take 5 mg by mouth two times a day. BID levothyroxine (SYNTHROID) 50 mcg tablet Take 50 mcg by mouth once daily. memantine (NAMENDA) 10 mg tablet Take 10 mg by mouth two times a day. MYRBETRIQ 50 mg Tb24 Taking 2 tabs [...] facility-administered medications on file prior to visit. General Medical Exam: General: Well-nourished appearing, NAD. Awake, alert. HEENT: Normocephalic/atraumatic. Neurological Exam: Cognition: alert and cooperative MoCA: Not assessed today (Previous score: 02/14 in 10/2021.) Orientation: alert Appearance: normal grooming Eye contact: normal Facial expression: appropriate Psychomotor: normal Brief neuroexam demonstrates: + Similar postural tremor in upper extremities. Mild + Decreased proprioception in L big toe, but no delroy numbness to the light touch in both feet Diagnostic Results: MRI Brain from 12/04/22 IMPRESSION: [...] from 2007 DATE: June 15, 2008 NO: [id number] Indication: Question of seizure Medications: None given [...] disturbance, or anxiety (HCC) (primary encounter diagnosis) (R53.81) Physical deconditioning (R26.81) Gait instability (R29.818, R29.898) Fine motor impairment (R42) Dizziness (M41.20) Idiopathic scoliosis and kyphoscoliosis (R29.6) Multiple falls (R20.2) Paresthesia of both feet PLAN: Continue the current medications as you have been 2. Contnue to be active, busy and cognitively/socially engaged 3. Be cautious with fall prevention 4. Continue to follow w/ Dr. De Paz 5. Consider seeing the Neuromuscular dept to have the numbness/tingling in feet evaluated [facility]483 [phone] Follow up in ~3-6 months I spent a total of 40 minutes on the date of service which included [id number] patient care and counseling and educating the patient/spouse. Laisha Lizarraga, MSN, LIDDER-C, CNRN CC: 1. No primary care provider on file., (fax) None documented in this encounterElyria [facility]11-14-2024 NoteC[facility] Nurse Note* Arun Buenrostro MA - 07/01/2024 1:26 PM EST Lauren Alcaraz is a 83 year old year old woman accompanied by: patient and spouse. Do you have any changes or new concerns you would like to address at the visit today? Pt will speak will provider about concerns Vital Signs: Ht 149.9 cm (4' 11) Wt 44.6 kg (98 lb 6.4 oz) LMP (LMP Unknown) BMI 19.87 kg/m [facility]11-14-20[facility] Nurse Note* Arun Buenrostro MA - 07/01/2024 1:26 PM EST Lauren Alcaraz is a 83 year old year old woman accompanied by: patient and spouse. Do you have any changes or new concerns you would like to address at the visit today? Pt will speak will provider about concerns Vital Signs: Ht 149.9 cm (4' 11) Wt 44.6 kg (98 lb 6.4 oz) LMP (LMP Unknown) BMI 19.87 kg/m documented in this encounterElyria [facility] Hospital11-07-2024 History of Present illness Narrative* Jesika Fuentes, (R) - 06/24/2024 3:00 PM EST Radiology Service Progress Note DATE OF SERVICE: June 24, 2024 TIME: 4:06 PM PATIENT IDENTITY VERIFICATION COMPLETED USING TWO (2) STANDARD IDENTIFIERS: Name and Date of confirmed by patient verbally. FALL SCREENING: Has the patient had 2 falls in the last year or 1 fall with injury or currently using an Ambulatory Assistive Device (Walker, Cane, Wheelchair, Crutches, etc.)? No PATIENT GENDER DATA: Female. status: : No status: NO. PATIENT RELEVANT IMPLANT DATA REVIEWED: Yes PATIENT PRESENTS WITH AN IMPLANTABLE OR ATTACHED ENTRY LEVEL SALES CONSULTANT: No ALLERGIES: Reviewed and unchanged CONTRAST ALLERGY: NO. EXAM: CT -CONTRAST INDUCED NEPHROPATHY RISK FACTORS: Patient age > 60 years CREATININE: Creatinine Date Value Ref Range Status 06/23/2024 0.84 0.58 - 0.96 mg/dL Final Estimated Glomerular Filtration Rate Date Value Ref Range Status 06/23/2024 70 >=60 mL/min/1.73m Final Comment: Estimated Glomerular Filtration Rate (eGFR) is calculated using the 2020 CKD-EPI creatinine equation. This equation utilizes serum creatinine, sex, and age as parameters. The creatinine assay has traceable calibration to isotope dilution- mass spectrometry. Refer to KDIGO guidelines for clinical interpretation. In patients with unstable renal function, e.g. those with acute kidney injury, the eGFRmay not accurately reflect actual GFR. P.O.C.T. RESULTS: POC done: Yes, See Lab Tab June 24, 2024 TREATMENT: N/A PERIPHERAL IV DATA: Ambulatory: A peripheral IV was started in the Left antecubital site with a Angio cath: 22 gauge. RADIOLOGY DEPARTMENT: CT; Exam(s) Completed: Chest Abdomen Pelvis SIGNATURE: RT Kusum(R) PATIENT NAME: Lauren Alcaraz DATE: June 24, 2024 TIME: 4:06 PM documented in this encounterElyria [facility]11-07-2024 NoteC[facility]-01-2024 NoteC[facility]11-01-2024 History of Present illness Narrative* Taylor Forrest RN - 06/18/2024 1:23 PM EDT Upon the direction of , This RN spoke with patient and agreed upon a procedure (EGD) date of 07/21/24 Placed call to Q3 to assist with scheduling. Reviewed procedure, rationale and what to expect. Patient instructed to be NPO as of midnight prior to procedure. - Stop all ASA and NSAID products, [employer] fish oil, herbal products such as ginko etc.for 7 days prior to procedure - Medication List reviewed. Patient agreed to hold Eliquis 3 days before procedure - Patient aware - must have a responsible regional refrigerated cdl truck driver on the day of procedure. Patient stated good understanding and agreed with plan. Provided contact number for this RN. Patient agreed to call with any questions or concerns documented in this encounterElyria [facility] Hospital11-01-2024 History and physical note * Anila De Paz MD - 06/18/2024 1:12 PM EDT HISTORY AND PHYSICAL EXAMINATION SERVICE DATE: 06/18/2024 SERVICE TIME: 1:00PM PRIMARY CARE PHYSICIAN: Chema Perry MD Subjective CHIEF COMPLAINT: epigastric pain. HPI: This is a 83 year old female, with PMH remarkable for CAD S/P stent placement, DVT, On Eliquis, appendectomy, hysterectomy, bilateral inguinal hernia repair x2, severe xyphoscoliosis, hx of breast cancer who presents with a symptomatic hiatal hernia. States that in the past six months has experienced epigastric abdominal pain, nausea vomiting, early satiety, worsening reflux symptoms. Her weight has been slowly dropping to the point that she has lost 50 pounds in the last 2 years. No changes in BM. Most recent EGD not available but the patient states is being a while. FUNCTIONAL STATUS: Independent 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 Back pain Cancer (HCC) Complex partial seizures (HCC) Dementia (HCC) Depression DVT (deep venous thrombosis) (HCC) Dysphagia Frequent falls GERD (gastroesophageal reflux disease) Glaucoma suspect of both eyes Heart disease History of heart attack Hypercholesterolemia Hypertension Low iron Presenile dementia, uncomplicated (HCC) Pseudophakia Restless leg syndrome Seizure (HCC) TIA (transient ischemic attack) PAST SURGICAL HISTORY Procedure Laterality Date CC CORONARY STENT ~1989 PAST SURGICAL HISTORY OF Ablation T 11 PAST SURGICAL HISTORY OF hernia surgery PAST SURGICAL HISTORY OF hammer toe correction PAST SURGICAL HISTORY OF lumbar laminectomy PAST SURGICAL HISTORY OF carpal tunnel release PAST SURGICAL HISTORY OF tonsillectomy and adenoidectomy PAST SURGICAL HISTORY OF lumpectomy of left breast PAST SURGICAL HISTORY OF cardiac catheterization PAST SURGICAL HISTORY OF EGD PAST SURGICAL HISTORY OF colonoscopy PAST SURGICAL HISTORY OF ventral hernia repair PAST SURGICAL HISTORY OF cataract surgery PAST SURGICAL HISTORY OF appendectomy PAST SURGICAL HISTORY OF kyphoplasty REMV CATARACT EXTRACAP,INSERT LENS Bilateral FAMILY HISTORY Problem Relation Age of Onset No Ocular Disease Mother Stroke Mother Arthritis Mother No Ocular Disease Father Heart Attack Father 40 Hypertension Father Alcohol abuse Father other (oth) Sister anemia Social History Tobacco Use Smoking status: Never Smokeless tobacco: Never Vaping Use Vaping status: Never Used Substance Use Topics Alcohol use: Yes Comment: Weekly 1-2 drinks Drug use: Never (Not in a hospital admission) ALLERGIES Allergen Reactions Propoxyphene N-Acet* Other: See Comments hallucinations Adhesive Tape-Silic* Unknown Other reaction(s): Other (comments) Not sure which type of tape but red skin. Doxycycline Vomiting Lamictal [Lamotrigi* Swelling Lips swelling Latex Rash Moxifloxacin Mental Status Change Percocet [Oxycodone* Mental Status Change Propoxyphene Mental Status Change, Other: See Comments Hallucinations Includes Darvocet Zolpidem Mental Status Change Adhesive Other: See Comments Not sure which type of tape but red skin. Diclofenac Sodium Other: See Comments Topical gel resulted in hand swelling. Oxycodone Mental Status Change COMPLETE REVIEW OF SYSTEMS: PAIN ASSESSMENT: Negative for pain, history of chronic pain, or current treatment for a chronic pain condition. GENERAL: No weight loss, malaise or fevers HEENT: Negative for frequent or significant headaches, No changes in hearing or vision, no nose bleeds or other nasal problems NECK: Negative for lumps, goiter, pain and significant neck swelling RESPIRATORY: Negative for cough, hemoptysis, wheezing, COPD, dyspnea or shortness of breath CARDIOVASCULAR: Negative for chest pain, leg swelling, hypertension, CHF or palpitations GI: See HPI : No history of dysuria, frequency or incontinence TORCH BRAZER: Negative for abnormal vaginal bleeding, abnormal vaginal discharge MUSCULOSKELETAL: Negative for joint pain or swelling, back pain or muscle pain SKIN: Negative for lesions, rash, and itching PSYCH: Negative for sleep disturbance, mood disorder and recent psychosocial stressors HEMATOLOGY/LYMPHOLOGY: Negative for prolonged bleeding, bruising easily or swollen nodes ENDOCRINE: Negative for cold or heat intolerance, polyuria, polydipsia and goiter NEURO: No history of headaches, syncope, paralysis, seizures or tremors Objective PHYSICAL EXAM: Physical Exam Performed: GENERAL: Alert, no distress, cooperative SKIN: A few soft tissue masses can be felt in the patient's anterior chest, renitent, mobile, non attached to deeper plains OROPHARYNX: Lips, mucosa, and tongue normal. Teeth and gums normal. Oropharynx normal. NECK: No jugulovenous distention, No carotid bruits, Carotid pulse normal contour, Supple LUNGS: Lungs clear to auscultation, Good diaphragmatic excursion CARDIAC: Normal S1 and S2; no rubs, murmurs, or gallops ABDOMEN: Abdomen soft, non-tender, BS normal, No masses or organomegaly. Patient states that has bilateral inguinal hernias, during my examination I couldn't feel those appropriately given patient's body habitus. EXTREMITIES: Extremities normal, no deformities, edema, clubbing or skin discoloration. Good capillary refill., No ulcers NEURO: Gait normal. Reflexes normal and symmetric. Sensation grossly intact, Cranial nerves II-XII intact PULSES: 2+ radial, 2+ carotid BP 111/56 Pulse 68 Ht 4' 11.016 (1.50m) Wt 101 lb 6.6 oz (46.0kg) BMI 20.47 kg/(m^2). DATA: Diagnostic tests reviewed for today's visit: Most recent labs and imaging results. CT Chest: No acute soft tissue findings. Large hiatal hernia. Cardiomegaly. Assessment/Plan Active Hospital Problems No active problems on problem list @OBESITYCLASS@ Assessment & Plan Hiatal hernia This is an alert and oriented 83 year old female, with PMH remarkable for CAD S/P stent placement, DVT, On Eliquis, appendectomy, hysterectomy, bilateral inguinal hernia repair x2, severe xyphoscoliosis, hx of breast cancer who presents with a symptomatic hiatal hernia. Her symptoms are severely impacting her quality of life. We discuss surgical treatment, risks, benefits and alternatives. I think its reasonable to perform surgical repair given her symptoms. Will need cardiology clearance. In regards of the inguinal hernias the patient is referring too, will obtain further imaging. More likely wont repair it at the same time, since those would be bilateral and recurrent Plan: New EGD Echo and cardiology evaluation at the [facility] CT Chest/Abd/Pel with IV con Creat Consult to Internal Medicine SIGNATURE: Anila De Paz MD PATIENT NAME: Lauren Alcaraz DATE: June 18, 2024 TIME: 1:12 PM [facility]11-01-2024 History and physical note* Anila De Paz MD - 06/18/2024 1:12 PM EDT HISTORY AND PHYSICAL EXAMINATION SERVICE DATE: 06/18/2024 SERVICE TIME: 1:00PM PRIMARY CARE PHYSICIAN: Chema Perry MD Subjective CHIEF COMPLAINT: epigastric pain. HPI: This is a 83 year old female, with PMH remarkable for CAD S/P stent placement, DVT, On Eliquis, appendectomy, hysterectomy, bilateral inguinal hernia repair x2, severe xyphoscoliosis, hx of breast cancer who presents with a symptomatic hiatal hernia. States that in the past six months has experienced epigastric abdominal pain, nausea vomiting, early satiety, worsening reflux symptoms. Her weight has been slowly dropping to the point that she has lost 50 pounds in the last 2 years. No changes in BM. Most recent EGD not available but the patient states is being a while. FUNCTIONAL STATUS: Independent 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 Back pain Cancer (HCC) Complex partial seizures (HCC) Dementia (HCC) Depression DVT (deep venous thrombosis) (HCC) Dysphagia Frequent falls GERD (gastroesophageal reflux disease) Glaucoma suspect of both eyes Heart disease History of heart attack Hypercholesterolemia Hypertension Low iron Presenile dementia, uncomplicated (HCC) Pseudophakia Restless leg syndrome Seizure (HCC) TIA (transient ischemic attack) PAST SURGICAL HISTORY Procedure Laterality Date CC CORONARY STENT ~1989 PAST SURGICAL HISTORY OF Ablation T 11 PAST SURGICAL HISTORY OF hernia surgery PAST SURGICAL HISTORY OF hammer toe correction PAST SURGICAL HISTORY OF lumbar laminectomy PAST SURGICAL HISTORY OF carpal tunnel release PAST SURGICAL HISTORY OF tonsillectomy and adenoidectomy PAST SURGICAL HISTORY OF lumpectomy of left breast PAST SURGICAL HISTORY OF cardiac catheterization PAST SURGICAL HISTORY OF EGD PAST SURGICAL HISTORY OF colonoscopy PAST SURGICAL HISTORY OF ventral hernia repair PAST SURGICAL HISTORY OF cataract surgery PAST SURGICAL HISTORY OF appendectomy PAST SURGICAL HISTORY OF kyphoplasty REMV CATARACT EXTRACAP,INSERT LENS Bilateral FAMILY HISTORY Problem Relation Age of Onset No Ocular Disease Mother Stroke Mother Arthritis Mother No Ocular Disease Father Heart Attack Father 40 Hypertension Father Alcohol abuse Father other (oth) Sister anemia Social History Tobacco Use Smoking status: Never Smokeless tobacco: Never Vaping Use Vaping status: Never Used Substance Use Topics Alcohol use: Yes Comment: Weekly 1-2 drinks Drug use: Never (Not in a hospital admission) ALLERGIES Allergen Reactions Propoxyphene N-Acet* Other: See Comments hallucinations Adhesive Tape-Silic* Unknown Other reaction(s): Other (comments) Not sure which type of tape but red skin. Doxycycline Vomiting Lamictal [Lamotrigi* Swelling Lips swelling Latex Rash Moxifloxacin Mental Status Change Percocet [Oxycodone* Mental Status Change Propoxyphene Mental Status Change, Other: See Comments Hallucinations Includes Darvocet Zolpidem Mental Status Change Adhesive Other: See Comments Not sure which type of tape but red skin. Diclofenac Sodium Other: See Comments Topical gel resulted in hand swelling. Oxycodone Mental Status Change COMPLETE REVIEW OF SYSTEMS: PAIN ASSESSMENT: Negative for pain, history of chronic pain, or current treatment for a chronic pain condition. GENERAL: No weight loss, malaise or fevers HEENT: Negative for frequent or significant headaches, No changes in hearing or vision, no nose bleeds or other nasal problems NECK: Negative for lumps, goiter, pain and significant neck swelling RESPIRATORY: Negative for cough, hemoptysis, wheezing, COPD, dyspnea or shortness of breath CARDIOVASCULAR: Negative for chest pain, leg swelling, hypertension, CHF or palpitations GI: See HPI : No history of dysuria, frequency or incontinence TORCH BRAZER: Negative for abnormal vaginal bleeding, abnormal vaginal discharge MUSCULOSKELETAL: Negative for joint pain or swelling, back pain or muscle pain SKIN: Negative for lesions, rash, and itching PSYCH: Negative for sleep disturbance, mood disorder and recent psychosocial stressors HEMATOLOGY/LYMPHOLOGY: Negative for prolonged bleeding, bruising easily or swollen nodes ENDOCRINE: Negative for cold or heat intolerance, polyuria, polydipsia and goiter NEURO: No history of headaches, syncope, paralysis, seizures or tremors Objective PHYSICAL EXAM: Physical Exam Performed: GENERAL: Alert, no distress, cooperative SKIN: A few soft tissue masses can be felt in the patient's anterior chest, renitent, mobile, non attached to deeper plains OROPHARYNX: Lips, mucosa, and tongue normal. Teeth and gums normal. Oropharynx normal. NECK: No jugulovenous distention, No carotid bruits, Carotid pulse normal contour, Supple LUNGS: Lungs clear to auscultation, Good diaphragmatic excursion CARDIAC: Normal S1 and S2; no rubs, murmurs, or gallops ABDOMEN: Abdomen soft, non-tender, BS normal, No masses or organomegaly. Patient states that has bilateral inguinal hernias, during my examination I couldn't feel those appropriately given patient's body habitus. EXTREMITIES: Extremities normal, no deformities, edema, clubbing or skin discoloration. Good capillary refill., No ulcers NEURO: Gait normal. Reflexes normal and symmetric. Sensation grossly intact, Cranial nerves II-XII intact PULSES: 2+ radial, 2+ carotid BP 111/56 Pulse 68 Ht 4' 11.016 (1.50m) Wt 101 lb 6.6 oz (46.0kg) BMI 20.47 kg/(m^2). DATA: Diagnostic tests reviewed for today's visit: Most recent labs and imaging results. CT Chest: No acute soft tissue findings. Large hiatal hernia. Cardiomegaly. Assessment/Plan Active Hospital Problems No active problems on problem list @OBESITYCLASS@ Assessment & Plan Hiatal hernia This is an alert and oriented 83 year old female, with PMH remarkable for CAD S/P stent placement, DVT, On Eliquis, appendectomy, hysterectomy, bilateral inguinal hernia repair x2, severe xyphoscoliosis, hx of breast cancer who presents with a symptomatic hiatal hernia. Her symptoms are severely impacting her quality of life. We discuss surgical treatment, risks, benefits and alternatives. I think its reasonable to perform surgical repair given her symptoms. Will need cardiology clearance. In regards of the inguinal hernias the patient is referring too, will obtain further imaging. More likely wont repair it at the same time, since those would be bilateral and recurrent Plan: New EGD Echo and cardiology evaluation at the [facility] CT Chest/Abd/Pel with IV con Creat Consult to Internal Medicine SIGNATURE: Anila De Paz MD PATIENT NAME: Lauren Alcaraz DATE: June 18, 2024 TIME: 1:12 PM [facility] Telephone encounter Note * Telephone Encounter - Taylor Forrest RN - 06/17/2024 11:15 AM EDT Spoke briefly with pt's , Delroy. He was at the store an unable to go into detail. States that all pt's records and images were sent to [facility] - This RN is unable to locate. Last CT ABD per was in JUN 2023 at [facility]. She may have had an EGD years ago States that his 's situation is declining and her quality of life is affected. Called [facility] - only CT results they have on file are from Jun [address] Chest and CT abd results be pushed to [facility] for her appt tomorrow. CT ABD/pel w IV contrast 07/12/22 Impression: 1.) stable right inguinal hernia. Small bowel present, no obstruction seen. 2.) Large Hiatal hernia 3.) Dilatation of CBD - no obvious stones [facility]10-31-2024 Miscellaneous Notes* Telephone Encounter - Taylor Forrest RN - 06/17/2024 11:15 AM EDT Spoke briefly with pt's , Delroy. He was at the store an unable to go into detail. States that all pt's records and images were sent to [facility] - This RN is unable to locate. Last CT ABD per was in JUN 2023 at [facility]. She may have had an EGD years ago States that his 's situation is declining and her quality of life is affected. Called [facility] - only CT results they have on file are from Jun [address] Chest and CT abd results be pushed to [facility] for her appt tomorrow. CT ABD/pel w IV contrast 07/12/22 Impression: 1.) stable right inguinal hernia. Small bowel present, no obstruction seen. 2.) Large Hiatal hernia 3.) Dilatation of CBD - no obvious stones [facility] Telephone encounter Note * Telephone Encounter - Bety Henry - 06/10/2024 2:17 PM EDT Pharmacy electronically requesting refills as follows: Requested Prescriptions Pending Prescriptions Disp Refills brimonidine (ALPHAGAN) 0.2 % ophthalmic solution 30 mL Sig: Use 1 Drop in both eyes two times a day. latanoprost (XALATAN) 0.005 % ophthalmic solution 7.5 mL Sig: Use 1 Drop in both eyes daily at bedtime. Please review and advise. F[facility] 08/02/24 Humza Camejo MD filed at 05/03/2024 3:04 PM Status: Signed Tmax: <21 per outside; Pachy: 550, 572 Lasers and Surgeries: OD:CEIOL OS:CEIOL Ocular Medication Intol and Non-efficacy: Now on latan 08/18 Next on latan 08/18, brim 2/2 -HVF 10/2023, high false positives and false negatives turned off OD inf arc OS inf arc -OCT 04/2024 OD sup and inf wedge, stable OS sup wedge, stable # Primary open angle glaucoma (POAG) severe both eyes - MRI brain reportedly fine - OCT retinal nerve fiber layer stable both eyes - some subjective progression in vision, will add brimonidine for neuroprotection - follow 3 months, visual acuity, intraocular pressure # Pseudophakia both eyes - stable # 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 latanoprost (XALATAN) 0.005 % ophthalmic solution 7.5 mL Sig: Use 1 Drop in both eyes daily at bedtime. Please review and advise. FV 08/02/24 Humza Camejo MD filed at 05/03/2024 3:04 PM Status: Signed Tmax: <21 per outside; Pachy: 550, 572 Lasers and Surgeries: OD:CEIOL OS:CEIOL Ocular Medication Intol and Non-efficacy: Now on latan 08/18 Next on latan 08/18, brim 2/2 -HVF 10/2023, high false positives and false negatives turned off OD inf arc OS inf arc -OCT 04/2024 OD sup and inf wedge, stable OS sup wedge, stable # Primary open angle glaucoma (POAG) severe both eyes - MRI brain reportedly fine - OCT retinal nerve fiber layer stable both eyes - some subjective progression in vision, will add brimonidine for neuroprotection - follow 3 months, visual acuity, intraocular pressure # Pseudophakia both eyes - stable # 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 Patient was recently in [place]'s emergency department underwent an abdomen and pelvis CT with contrast. This showed a stable right inguinal hernia a large hiatal hernia and a dilated common bile duct with no obvious stones seen. They suggested possibly an MRCP would be beneficial. Unfortunately I do not have the CTscan available to view only the written report. The patient is being seen by me today at the request of Dr. Chema Perry MD for my opinion andadvice regarding Hiatal hernia (primary encounter diagnosis) Gastroesophageal reflux disease, unspecified whether esophagitis present. 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 Back pain Cancer (HCC) Complex partial seizures (HCC) Dementia (HCC) Depression DVT (deep venous thrombosis) (HCC) Dysphagia Frequent falls GERD (gastroesophageal reflux disease) Glaucoma suspect of both eyes Heart disease History of heart attack Hypercholesterolemia Hypertension Low iron Presenile dementia, uncomplicated (HCC) Pseudophakia Restless leg syndrome Seizure (HCC) TIA (transient ischemic attack) PAST SURGICAL HISTORY Procedure Laterality Date CC CORONARY STENT ~1989 PAST SURGICAL HISTORY OF Ablation T 11 PAST SURGICAL HISTORY OF hernia surgery PAST SURGICAL HISTORY OF hammer toe correction PAST SURGICAL HISTORY OF lumbar laminectomy PAST SURGICAL HISTORY OF carpal tunnel release PAST SURGICAL HISTORY OF tonsillectomy and adenoidectomy PAST SURGICAL HISTORY OF lumpectomy of left breast PAST SURGICAL HISTORY OF cardiac catheterization PAST SURGICAL HISTORY OF EGD PAST SURGICAL HISTORY OF colonoscopy PAST SURGICAL HISTORY OF ventral hernia repair PAST SURGICAL HISTORY OF cataract surgery PAST SURGICAL HISTORY OF appendectomy PAST SURGICAL HISTORY OF kyphoplasty REMV CATARACT EXTRACAP,INSERT LENS Bilateral Current Outpatient Medications Medication Sig d-mannose 500 mg capsule Take 500 mg by mouth once daily. azelastine 0.1% nasal spray Use 1 [place] in each nostril two times a day. cetirizine (ZYRTEC) 10 mg tablet Take 10 mg by mouth once daily as needed. diazePAM (VALIUM) 2 mg tablet Take 2 mg by mouth at bedtime as needed for anxiety. fluticasone (ALLERGY RELIEF, FLUTICASONE,) 50 mcg/actuation nasal spray Use 1 [place] in each nostrilonce daily. valACYclovir (VALTREX) 500 mg tablet Take 1,000 mg by mouth three times a day. brimonidine (ALPHAGAN) 0.2 % ophthalmic solution Use 1 Drop in both eyes two times a day. latanoprost (XALATAN) 0.005 % ophthalmic solution Use 1 Drop in both eyes daily at bedtime. donepezil (ARICEPT) 10 mg tablet Take 1 tablet by mouth daily with breakfast. furosemide (LASIX) 20 mg tablet Take 0.5 tablets by mouth every afternoon. gabapentin (NEURONTIN) 100 mg capsule as needed. traMADol (ULTRAM) 50 mg tablet Take 50 mg by mouth as needed. famotidine (PEPCID) 10 mg tablet Take 10 mg by mouth twice daily. DODEX 1,000 mcg/mL Inject 1,000 mcg intramuscularly once every month. Vitamin B-60-lyfuttrdaurgwh ammonium lactate (LAC-HYDRIN) 12 % lotion BD ECLIPSE LUER-BOZENA 3 mL 23 x 1 MULTIVITAMIN ORAL Take by mouth once daily. albuterol (PROVENTIL) 2.5 mg /3 mL (0.083 %) nebulizer solution as needed. Lactobacillus acidophilus (PROBIOTIC) 10 billion cell cap once daily. pramipexole (MIRAPEX) 0.5 mg tablet Take 0.5 mg by mouth two times a day. vortioxetine (TRINTELLIX) 20 mg tablet Take 20 mg by mouth once daily. atorvastatin (LIPITOR) 40 mg tablet Take 40 mg by mouth once daily. ELIQUIS 5 mg tab(s) Take 5 mg by mouth two times a day. BID levothyroxine (SYNTHROID) 50 mcg tablet Take 50 mcg by mouth once daily. memantine (NAMENDA) 10 mg tablet Take 10 mg by mouth two times a day. MYRBETRIQ 50 mg Tb24 Taking 2 tabs [...] every 6 months. Last injection November 2020 ipratropium bromide (ATROVENT) 42 mcg (0.06 %) nasal spray No current facility-administered medications for this visit. ALLERGIES: Propoxyphene N-Acetaminophen, Adhesive Tape-Silicones, Doxycycline, Lamictal [Lamotrigine], Latex, Moxifloxacin, Percocet [Oxycodone-Acetaminophen], Propoxyphene, Zolpidem, Adhesive, Diclofenac Sodium, and Oxycodone PERSONAL HISTORY: Social History Tobacco Use Smoking status: Never Smokeless tobacco: Never Vaping Use Vaping status: Never Used Substance Use Topics Alcohol use: Yes Comment: Weekly 1-2 drinks Drug use: Never FAMILY HISTORY: FAMILY HISTORY Problem Relation Age of Onset No Ocular Disease Mother Stroke Mother Arthritis Mother No Ocular Disease Father Heart Attack Father 40 Hypertension Father Alcohol abuse Father other (oth) Sister anemia REVIEW OF SYMPTOMS: The review of systems data was entered by the nurse and reviewed by ri Nursing Notes: Marian José RN 05/17/2024 3:54 PM Signed REVIEW OF SYSTEMS: General: The patient NOTES fatigue, denies weight loss, NOTES weight gain, denies feeling hot, and denies feelings of cold. Eyes: The patient NOTES glaucoma, denies eye injury/surgery, wears glasses or contacts. Ear/Nose/Throat: The patient NOTES allergies, NOTES hayfever, denies ear infections, and denies bloody noses. Cardiovascular: The patient NOTES chest pain, NOTES heart disease, NOTES high blood pressure,NOTES cardiac stent, NOTES prior heart attack, denies irregular heart beat, NOTES high cholesterol, deniespoor circulation, denies heart failure, other cardiac issues, denies claudication, denies cold feet, denies peripheral arterial stent. Respiratory: The patient denies tuberculosis, denies pneumonia, denies frequent cough, denies pulmonary embolism, NOTES shortness of breath, and denies coughing up blood. Gastrointestinal: The patient NOTES difficulty swallowing, NOTES acid reflux, denies ulcers, NOTES vomiting, denies jaundice/hepatitis, denies gallbladder problems, denies black or tarry stools, denies hemorrhoids, denies bleeding from rectum, denies diverticulitis, denies constipation, denies diarrhea, denies loss of stool control, and NOTES hernias. Kidney/Bladder: The patient denies kidney stones, denies urine infections, and denies bloody urine. Skin: The patient denies a history of skin cancer, denies bleeding/changing moles, and denies a history of skin rash. Neurologic: The patient NOTES a history of epilepsy/convulsions, denies headaches, denies head/spinal injuries, and NOTES stroke/TIA. Psychiatric: The patient denies psychiatric medications, NOTES depression, and denies voices, denies substance abuse. Endocrine: The patient denies thyroid disorders, denies diabetes, and denies hormonal problems. Hematologic: The patient NOTES a history of bruising, denies bleeding, and denies anemia, NOTES blood clots. Infections: The patient NOTES a history of measles and mumps, denies rheumatic fever, and denies sexually transmitted diseases. Musculoskeletal: The patient NOTES back pain/injury, NOTES back problems, NOTES sciatica, NOTES knee/foot trouble, NOTES arthritis, or denies gout. When was patient's last Mammogram screening? 06/25/2018 Last Colonoscopy: never Marian José RN PHYSICAL EXAMINATION: General: The patient is 83 year old female, well nourished, well hydrated in no acute distress. Thepatient is oriented to time, place, and person. VITALS: Blood pressure 138/72, pulse 78, temperature 36.2 C (97.2 F), temperature source Temporal, weight 47.5 kg (104 lb 12.8 oz), SpO2 92%. HEENT: Normal cephalic, ataumatic, pupils are equally round, sclera are anicteric, mucous membranesare moist, oropharynx is clear. Neck has no masses, asymmetry or lymphadenopathy. Thyroid is unremarkable. Respiratory: Clear to auscultation and percussion. Normal respiratory excursion and pattern. Cardiac: Examination is regular rate and rhythm. Abdominal exam: Soft, nontender, with no palpable masses. No hepatosplenomegaly. No palpable hernias. Rectal exam: exam deferred Extremities: no clubbing, cyanosis or edema. No adenopathy. Other: LABORATORY VALUES: As Noted RADIOLOGIC STUDIES: As Noted Assessment IMPRESSION: Hiatal hernia (primary encounter diagnosis) Gastroesophageal reflux disease, unspecified whether esophagitis present PLAN: At this point I am going to get a referral up to [facility] for this large hiatal hernia. Hopefully will be able to bring over the images so that they can be viewed. She is clearly going to have to have some form of a upper endoscopy. She is a very frail individual. Significant scoliosis. She is complaining that her quality of life has significantly decreased without her ability to enjoy p.o. intake Diagnoses: (K44.9) Hiatal hernia (primary encounter diagnosis) (K21.9) Gastroesophageal reflux disease, unspecified whether esophagitis present A letter was sent to Dr. Chema Perry MD indicating the above finding for this patient. Return to Clinic: The patient is instructed to follow-up with me as needed. Susan Squires III, MD documented in this encounterE[facility]09-[facility] Nurse Note* Marian José RN - 05/17/2024 3:52 PM EDT REVIEW OF SYSTEMS: General: The patient NOTES fatigue, denies weight loss, NOTES weight gain, denies feeling hot, and denies feelings of cold. Eyes: The patient NOTES glaucoma, denies eye injury/surgery, wears glasses or contacts. Ear/Nose/Throat: The patient NOTES allergies, NOTES hayfever, denies ear infections, and denies bloody noses. Cardiovascular: The patient NOTES chest pain, NOTES heart disease, NOTES high blood pressure,NOTES cardiac stent, NOTES prior heart attack, denies irregular heart beat, NOTES high cholesterol, deniespoor circulation, denies heart failure, other cardiac issues, denies claudication, denies cold feet, denies peripheral arterial stent. Respiratory: The patient denies tuberculosis, denies pneumonia, denies frequent cough, denies pulmonary embolism, NOTES shortness of breath, and denies coughing up blood. Gastrointestinal: The patient NOTES difficulty swallowing, NOTES acid reflux, denies ulcers, NOTES vomiting, denies jaundice/hepatitis, denies gallbladder problems, denies black or tarry stools, denies hemorrhoids, denies bleeding from rectum, denies diverticulitis, denies constipation, denies diarrhea, denies loss of stool control, and NOTES hernias. Kidney/Bladder: The patient denies kidney stones, denies urine infections, and denies bloody urine. Skin: The patient denies a history of skin cancer, denies bleeding/changing moles, and denies a history of skin rash. Neurologic: The patient NOTES a history of epilepsy/convulsions, denies headaches, denies head/spinal injuries, and NOTES stroke/TIA. Psychiatric: The patient denies psychiatric medications, NOTES depression, and denies voices, denies substance abuse. Endocrine: The patient denies thyroid disorders, denies diabetes, and denies hormonal problems. Hematologic: The patient NOTES a history of bruising, denies bleeding, and denies anemia, NOTES blood clots. Infections: The patient NOTES a history of measles and mumps, denies rheumatic fever, and denies sexually transmitted diseases. Musculoskeletal: The patient NOTES back pain/injury, NOTES back problems, NOTES sciatica, NOTES knee/foot trouble, NOTES arthritis, or denies gout. When was patient's last Mammogram screening? 06/25/2018 Last Colonoscopy: never Marian José RN [facility]09-30-2024 Nurse Note* Marian José RN - 05/17/2024 3:52 PM EDT REVIEW OF SYSTEMS: General: The patient NOTES fatigue, denies weight loss, NOTES weight gain, denies feeling hot, and denies feelings of cold. Eyes: The patient NOTES glaucoma, denies eye injury/surgery, wears glasses or contacts. Ear/Nose/Throat: The patient NOTES allergies, NOTES hayfever, denies ear infections, and denies bloody noses. Cardiovascular: The patient NOTES chest pain, NOTES heart disease, NOTES high blood pressure,NOTES cardiac stent, NOTES prior heart attack, denies irregular heart beat, NOTES high cholesterol, deniespoor circulation, denies heart failure, other cardiac issues, denies claudication, denies cold feet, denies peripheral arterial stent. Respiratory: The patient denies tuberculosis, denies pneumonia, denies frequent cough, denies pulmonary embolism, NOTES shortness of breath, and denies coughing up blood. Gastrointestinal: The patient NOTES difficulty swallowing, NOTES acid reflux, denies ulcers, NOTES vomiting, denies jaundice/hepatitis, denies gallbladder problems, denies black or tarry stools, denies hemorrhoids, denies bleeding from rectum, denies diverticulitis, denies constipation, denies diarrhea, denies loss of stool control, and NOTES hernias. Kidney/Bladder: The patient denies kidney stones, denies urine infections, and denies bloody urine. Skin: The patient denies a history of skin cancer, denies bleeding/changing moles, and denies a history of skin rash. Neurologic: The patient NOTES a history of epilepsy/convulsions, denies headaches, denies head/spinal injuries, and NOTES stroke/TIA. Psychiatric: The patient denies psychiatric medications, NOTES depression, and denies voices, denies substance abuse. Endocrine: The patient denies thyroid disorders, denies diabetes, and denies hormonal problems. Hematologic: The patient NOTES a history of bruising, denies bleeding, and denies anemia, NOTES blood clots. Infections: The patient NOTES a history of measles and mumps, denies rheumatic fever, and denies sexually transmitted diseases. Musculoskeletal: The patient NOTES back pain/injury, NOTES back problems, NOTES sciatica, NOTES knee/foot trouble, NOTES arthritis, or denies gout. When was patient's last Mammogram screening? 06/25/2018 Last Colonoscopy: never Marian José RN documented in this encounterE[facility]09-[facility]24 NoteDate of Procedure 05/03/2024. Computer Numeric Control Setter Information was not able due to head position . NFL Interpretation Right Eye Diffuse loss. Left Eye Diffuse loss. Interval Change Right Eye Stable. Left Eye Stable.[id number] [facility] History of Present illness Narrative* Humza Camejo MD - 05/03/2024 2:49 PM EDT Tmax: <21 per outside; Pachy: 550, 572 Lasers and Surgeries: OD: CEIOL OS: CEIOL Ocular Medication Intol and Non-efficacy: Now on latan 08/18 Next on latan 08/18, brim 2/2 -HVF 10/2023, high false positives and false negatives turned off OD inf arc OS inf arc -OCT 04/2024 OD sup and inf wedge, stable OS sup wedge, stable # Primary open angle glaucoma (POAG) severe both eyes - MRI brain reportedly fine - OCT retinal nerve fiber layer stable both eyes - some subjective progression in vision, will add brimonidine for neuroprotection - follow 3 months, visual acuity, intraocular pressure # 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 documented in this encounterElyria [facility]08-08-2024 Instructions* Patient Instructions* Laisha Lizarraga, ROSMERY.[facility] - 03/25/2024 2:26 PM EDT Will look into whether there is a holistic and all-encompassing provider you could see who can synthesize all the data from your various specialists 2. Keep working hard at the therapy and PT! 3. See what the [facility] feels about the thoracic pain tomorrow- pending that- we may consider referring you to our spine dept 4. Keep the medications the same for now Follow up pending the results from the above-- potentially 3 months documented in this encounterElyria [facility]08-08-2024 History of Present illness Narrative* Laisha Lizarraga APRN.ALBERT - 03/25/2024 1:45 PM EDT Lauren Alcaraz 1940 [address] [place] [facility] [address] March 25, 2024 [facility] FOLLOW-UP NOTE Accompanied by: spouse Delroy MERCY Alcaraz is a pleasant 83 year old female seen today for a [...] (R26.89) Imbalance Patient was last seen on 10/16/23, at which time: -- reports of progressive weight loss perhaps partly 2/2 hiatal hernia restricting her appetite- she cannot eat large quantities, does enjoy sweets/ice cream but not Boost/Ensure shakes -- does attend the gym and is involved in workouts -- has a lot of internal drive to be healthy and to delay disease progression Previous plan included: Please increase donepezil to 10mg daily -- can start using two 5mg tablets daily in morning - watching for stomach side effects. Please let me know if you appetite or satiation worsens 2. Keep going to the gym and working out regularly! Keep working with Erma! 3. Maintain the highly motivated attitude! Today, Lauren and her spouse returns for a routine follow up visit. She reports that she is tolerating the increased donepezil 10mg-- no SE reported And feeling that she is a bit sharper cognitively Today she expresses a significant amount of interim pain in the thoracic spine that radiates to theR side and down her leg to her foot. She had MRIs of T/L spine performed on 03/19 at [facility] and they will see the doctor there to review these tomorrow She reports some increase in UE fine motor difficulty, poor writing legibility, and some ongoing UEshakiness She continues to have early satiety presumably related to significant hiatal hernia and apparent ongoing weight loss Her main concern today is the fact that she is struggling with several very frustrating health issues (progressively debilitating spinal kyphoscoliosis now with thoracic radiating pain, hiatal hernia, weight loss They are interested in a provider or group that will take a comprehensive and whole look at all of these problems to see if any are related and if there is any way that her progressively shrinking intrathoracic space can be helped or symptoms to be reduced FAST Functional Assessment Staging Tool 4. Decreased ability to perform complex tasks (e.e.g planning dinner for guests; handling finances;marketing) Vital Signs: BP 137/81 Pulse 68 Ht 149.9 cm (4' 11) Wt 45.4 kg (100 lb) LMP (LMP Unknown) BMI 20.20 kg/m Current Outpatient Medications on File Prior to Visit Medication Sig latanoprost (XALATAN) 0.005 % ophthalmic solution Use 1 Drop in both eyes daily at bedtime. donepezil (ARICEPT) 10 mg tablet Take 1 tablet by mouth daily with breakfast. latanoprost (XALATAN) 0.005 % ophthalmic solution Use 1 Drop in both eyes daily at bedtime. furosemide (LASIX) 20 mg tablet Take 0.5 tablets by mouth every afternoon. ipratropium bromide (ATROVENT) 42 mcg (0.06 %) nasal spray gabapentin (NEURONTIN) 100 mg capsule as needed. traMADol (ULTRAM) 50 mg tablet Take 50 mg by mouth as needed. famotidine (PEPCID) 10 mg tablet Take 10 mg by mouth twice daily. DODEX 1,000 mcg/mL inject 1 milliliter ( 1000 MCG ) intramuscularly Every Month ammonium lactate (LAC-HYDRIN) 12 % lotion BD ECLIPSE LUER-BOZENA 3 mL 23 x 1 MULTIVITAMIN ORAL Take by mouth once daily. albuterol (PROVENTIL) 2.5 mg /3 mL (0.083 [...] facility-administered medications on file prior to visit. General Medical Exam: General: Well-nourished appearing, NAD. Awake, alert. HEENT: Normocephalic/atraumatic. Neurological Exam: Cognition: alert and cooperative MoCA: Not assessed today (Previous score: 30 in 10/2021.) Orientation: alert Appearance: normal grooming Eye contact: normal Facial expression: sad/frustrated Psychomotor: normal Speech/Language: unremarkable -can name, repeat with no dysarthria Mood: no major changes reported Affect: frustrated PDW:no SI:no Self-injurious behavior:no Emotional state: calm, cooperative Thought Process: logical Thought Content: appropriate Hallucinations: none Judgment: intact Insight: good Brief/ truncated neuro exam performed (Focused on LE) Roughly 5/5 strength in all extremities Mild postural tremor in BUE SILT in BLE Proprioception intact BLE 2+ to 3 knee jerk 2+ ankle jerk Toes downgoing bilaterally Diagnostic Results: MRI Brain from 12/04/22 IMPRESSION: [...] from 2007 DATE: June 15, 2008 NO: [id number] Indication: Question of seizure Medications: None given [...] disturbance, or anxiety (HCC) (primary encounter diagnosis) (R53.81) Physical deconditioning (R26.81) Gait instability (R29.818, R29.898) Fine motor impairment (R42) Dizziness (F32.A) Depression, unspecified depression type (M40.04) Postural kyphosis of thoracic region PLAN: Will look into whether there is a holistic and all-encompassing provider you could see who can synthesize all the data from your various specialists 2. Keep working hard at the therapy and PT! 3. See what the [facility] feels about the thoracic pain tomorrow- pending that- we may consider referring you to our spine dept 4. Keep the medications the same for now Follow up pending the results from the above-- potentially 3 months I spent a total of 40 minutes on the date of service which included [id number] patient care and counseling and educating the patient/spouse. Laisha Lizarraga, MSN, LIDDER-C, CNRN CC: 1. No primary care provider on file., (fax) None documented in this encounterElyria [facility] Hospital08-08-2024 NoteC[facility]08-07-2024 Telephone encounter Note* Telephone Encounter - Bety Henry - 03/24/2024 1:36 PM EDT Request a 30 day emergency supply (script) of Latanoprost be sent to the [facility] . I will be out of this medication in 3 to 4 days and [facility] will not fill the existing script until 04 April and I will not receive it until about April 16. Please advise me that this message has been received and the script sent to [facility]. Thank you, Humza Carrington MD filed at 10/27/2023 3:54 PM Status: Signed Tmax: <21 per outside; Pachy: 550, 572 Lasers and Surgeries: OD: CEIOL OS: CEIOL Ocular Medication Intol and Non-efficacy: Now on latan 08/18 -HVF 10/2023, high false positives and false negatives turned off OD inf arc OS inf arc -OCT 07/2023 OD sup and inf wedge OS sup wedge # Primary open angle glaucoma (POAG) severe both eyes - MRI brain reportedly fine - OCT retinal nerve fiber layer and exam with thinning that could represent glaucoma - start latan 08/18 -> continue - visual field baseline today, not reliable, will follow OCT retinal nerve fiber layer - follow 6 months, dilate, OCT retinal nerve fiber layer # 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 Humza Camejo MD [facility] Work Phone: 1(685) 245-771608-07-2024 Miscellaneous Notes* Telephone Encounter - Moody PowerBety - 03/24/2024 1:36 PM EDT Request a 30 day emergency supply (script) of Latanoprost be sent to the [facility] . I will be out of this medication in 3 to 4 days and [facility] will not fill the existing script until 04 April and I will not receive it until about April 16. Please advise me that this message has been received and the script sent to [facility]. Thank you, Humza Carrington MD filed at 10/27/2023 3:54 PM Status: Signed Tmax: <21 per outside; Pachy: 550, 572 Lasers and Surgeries: OD: CEIOL OS: CEIOL Ocular Medication Intol and Non-efficacy: Now on latan 08/18 -HVF 10/2023, high false positives and false negatives turned off OD inf arc OS inf arc -OCT 07/2023 OD sup and inf wedge OS sup wedge # Primary open angle glaucoma (POAG) severe both eyes - MRI brain reportedly fine - OCT retinal nerve fiber layer and exam with thinning that could represent glaucoma - start latan 08/18 -> continue - visual field baseline today, not reliable, will follow OCT retinal nerve fiber layer - follow 6 months, dilate, OCT retinal nerve fiber layer # 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 Humza Camejo MD documented in this encounterElyria [facility] Hospital07-26-2024 Telephone encounter Note * Telephone Encounter - Laisha Lizarraga, ROSMERY.[facility] - 03/12/2024 12:08 PM EDT The following approved medication requests have been transmitted electronically. Requested Prescriptions Signed Prescriptions Disp Refills donepezil (ARICEPT) 10 mg tablet 90 tablet 3 Sig: Take 1 tablet by mouth daily with breakfast. Authorizing Provider: LAISHA LIZARRAGA APRN.CNP [facility]07-26-2024 Miscellaneous Notes* Telephone Encounter - Laisha Lizarraga APRN.CNP - 03/12/2024 12:08 PM EDT The following approved medication requests have been transmitted electronically. Requested Prescriptions Signed Prescriptions Disp Refills donepezil (ARICEPT) 10 mg tablet 90 tablet 3 Sig: Take 1 tablet by mouth daily with breakfast. Authorizing Provider: LAISHA LIZARRAGA APRN.CNP documented in this encounterElyria Memorial Hospital05-10-2024 Telephone encounter Note * Telephone Encounter - Bety Henry - 12/26/2023 3:53 PM EDT Patient's request for medication is as follows: Requested Prescriptions Pending Prescriptions Disp Refills latanoprost (XALATAN) 0.005 % ophthalmic solution 7.5 mL Sig: Use 1 Drop in both eyes daily at bedtime. Prescription(s) as above. Please process accordingly. FV 05/03/24 Humza Camejo MD filed at 10/27/2023 3:54 PM Status: Signed Tmax: <21 per outside; Pachy: 550, 572 Lasers and Surgeries: OD: CEIOL OS: CEIOL Ocular Medication Intol and Non-efficacy: Now on latan 08/18 -HVF 10/2023, high false positives and false negatives turned off OD inf arc OS inf arc -OCT 07/2023 OD sup and inf wedge OS sup wedge # Primary open angle glaucoma (POAG) severe both eyes - MRI brain reportedly fine - OCT retinal nerve fiber layer and exam with thinning that could represent glaucoma - start latan 08/18 -> continue - visual field baseline today, not reliable, will follow OCT retinal nerve fiber layer - follow 6 months, dilate, OCT retinal nerve fiber layer # 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 Humza Camejo MD [facility] Work Phone: 1(713) 576-361805-10-2024 Miscellaneous Notes* Telephone Encounter - Bety Henry - 12/26/2023 3:53 PM EDT Patient's request for medication is as follows: Requested Prescriptions Pending Prescriptions Disp Refills latanoprost (XALATAN) 0.005 % ophthalmic solution 7.5 mL Sig: Use 1 Drop in both eyes daily at bedtime. Prescription(s) as above. Please process accordingly. FV 05/03/24 Humza Camejo MD filed at 10/27/2023 3:54 PM Status: Signed Tmax: <21 per outside; Pachy: 550, 572 Lasers and Surgeries: OD: CEIOL OS: CEIOL Ocular Medication Intol and Non-efficacy: Now on latan 08/18 -HVF 10/2023, high false positives and false negatives turned off OD inf arc OS inf arc -OCT 07/2023 OD sup and inf wedge OS sup wedge # Primary open angle glaucoma (POAG) severe both eyes - MRI brain reportedly fine - OCT retinal nerve fiber layer and exam with thinning that could represent glaucoma - start latan 08/18 -> continue - visual field baseline today, not reliable, will follow OCT retinal nerve fiber layer - follow 6 months, dilate, OCT retinal nerve fiber layer # 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 Humza Camejo MD documented in this encounterElyria [facility] Hospital05-10-2024 Telephone encounter Note * Telephone Encounter - Romero Ojeda PA-C - 12/26/2023 10:22 AM EDT The following approved medication requests have been transmitted electronically. Requested Prescriptions Signed Prescriptions Disp Refills donepezil (ARICEPT) 10 mg tablet 90 tablet 3 Sig: TAKE 1 TABLET BY MOUTH DAILY WITH BREAKFAST Authorizing Provider: LAISHA LIZARRAGA Ordering User: ROMERO OJEDA PA-C [facility] Work Phone: [phone] Miscellaneous Notes* Telephone Encounter - Romero Ojeda PA-C - 12/26/2023 10:22 AM EDT The following approved medication requests have been transmitted electronically. Requested Prescriptions Signed Prescriptions Disp Refills donepezil (ARICEPT) 10 mg tablet 90 tablet 3 Sig: TAKE 1 TABLET BY MOUTH DAILY WITH BREAKFAST Authorizing Provider: LAISHA LIZARRAGA Ordering User: ROMERO OJEDA PA-C documented in this encounterElyria Memorial Hospital04-04-2024 Discharge summary Author Aquiles Sipos [facility] November 20, 2023 8:31am Note Date/Time November 20, 2023 8:31 am [facility] Physical Therapy [facility] [address] [place] [address] / REHABILITATION SERVICES DISCHARGE SUMMARY MR#: [id number] Acct: [id number] Name: LAUREN ALCARAZ Rep #: [id number] : 1940 83 From: Aquiles Fang DP T Referring Dr.: Dr. Porfirio Bloom MD Status: REG RCR Insurance: MEDICARE PART A B [employer] [id number] Patient Information Patient Information: LAUREN ALCARAZ was seen in my office for initial evaluation on 08/14/23. The following Plan of Care was established for this patient: POC Established Initial Frequency: 1x/Week Initial Duration: 4 Weeks Anticipated Interventions Patient/Client Instruction: Educate patient on: Condition, Plan of Care, Risk Factors and Benefits of Fitness Program For the Purpose of:: To improve health and function, To foster healthy habits, To improve decision making, To facilitate caregiver knowledge, To improve self management, To prevent re-injury and To improve ability to perform tasks relatedto life management Orthotics: Brace For the Purpose of:: To decrease pain, To improve ability to perform ADL's and To improve ability of physical actions for home/community/work/leisure Last Seen Last Seen: This patient was last seen in our office 08/14/23. Pertinent comments regardingtheir Physical therapy will appear below: Pt. was evaluated for the need of a lumbar-thoracic brace. She was in need and Ireferred her to [facility] of fitting. I did talk with her and was fitting for a brace. I will DC her from PT at this point in time At this point I will be discontinuing this patient from physical therapy. I would be happy to see this patient again in the future if found appropriate by the physician. Thank you! Aquiles Fang, DPT Balance/Gait/Functional tests Balance/Special Test Scores Oswestry Low Back Score: 11 <Electronically signed by Aquiles Fang DPT> 11/20/23 0836 CC: Dr. Porfirio Bloom MD; Dr. Chema Perry MD ~ CLS Signed [facility] Work Phone: [phone]) 834-755703-14-2024 Miscellaneous Notes* Telephone Encounter - Silver Najma - 10/30/2023 10:20 AM EDT Patient's request for medication is as follows: Requested Prescriptions Pending Prescriptions Disp Refills latanoprost (XALATAN) 0.005 % ophthalmic solution 7.5 mL 5 Sig: Use 1 Drop in both eyes daily at bedtime. Prescription(s) as above. Please process accordingly. Najma Sheppard [facility] 05-03-24 Assessment & Plan Humza Camejo MD filed at 10/27/2023 3:54 PM Status: Signed Tmax: <21 per outside; Pachy: 550, 572 Lasers and Surgeries: OD: CEIOL OS: CEIOL Ocular Medication Intol and Non-efficacy: Now on latan 08/18 -HVF 10/2023, high false positives and false negatives turned off OD inf arc OS inf arc -OCT 07/2023 OD sup and inf wedge OS sup wedge # Primary open angle glaucoma (POAG) severe both eyes - MRI brain reportedly fine - OCT retinal nerve fiber layer and exam with thinning that could represent glaucoma - start latan 08/18 -> continue - visual field baseline today, not reliable, will follow OCT retinal nerve fiber layer - follow 6 months, dilate, OCT retinal nerve fiber layer # Pseudophakia both eyes - stable # 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 DLB + vascular disease - follow neurology, continue documented in this encounterElyria [facility] Hospital03-11-2024 Miscellaneous Notes* Addendum Note - Humza Camejo MD - 10/27/2023 3:57 PM EDTAddended by: HUMZA CAMEJO on: 10/27/2023 03:57 PM Modules accepted: Orders * Addendum Note - Humza Camejo MD - 10/27/2023 3:55 PM EDTAddended by: HUMZA CAMEJO on: 10/27/2023 03:55 PM Modules accepted: Orders documented in this encounterElyria Memorial Hospital03-11-2024 Instructions* Patient Instructions* Humza Camejo MD - 10/27/2023 3:48 PM EDT You will be dilated on your next visit. This will likely make your vision blurry for several hours, and you should strongly consider bringing a regional refrigerated cdl truck driver. Tmax: <21 per outside; Pachy: 550, 572 Lasers and Surgeries: OD: CEIOL OS: CEIOL Ocular Medication Intol and Non-efficacy: Now on latan 08/18 -HVF 10/2023, high false positives and false negatives turned off OD inf arc OS inf arc -OCT 07/2023 OD sup and inf wedge OS sup wedge # Primary open angle glaucoma (POAG) severe both eyes - MRI brain reportedly fine - OCT retinal nerve fiber layer and exam with thinning that could represent glaucoma - start latan 08/18 -> continue - visual field baseline today, not reliable, will follow OCT retinal nerve fiber layer - follow 6 months, dilate, OCT retinal nerve fiber layer # 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 Humza Camejo MD documented in this encounterElyria Memorial Hospital03-11-2024 History of Present illness Narrative* Humza Camejo MD - 10/27/2023 3:42 PM EDT Tmax: <21 per outside; Pachy: 550, 572 Lasers and Surgeries: OD: CEIOL OS: CEIOL Ocular Medication Intol and Non-efficacy: Now on latan 08/18 -HVF 10/2023, high false positives and false negatives turned off OD inf arc OS inf arc -OCT 07/2023 OD sup and inf wedge OS sup wedge # Primary open angle glaucoma (POAG) severe both eyes - MRI brain reportedly fine - OCT retinal nerve fiber layer and exam with thinning that could represent glaucoma - start latan 08/18 -> continue - visual field baseline today, not reliable, will follow OCT retinal nerve fiber layer - follow 6 months, dilate, OCT retinal nerve fiber layer # 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 Humza Camejo MD documented in this encounterElyria Memorial Hospital02-29-2024 Instructions* Patient Instructions* Laisha Lizarraga APRN.CNP - 10/16/2023 3:34 PM EST PLAN: Please increase donepezil to 10mg daily -- can start using two 5mg tablets daily in morning - watching for stomach side effects. Please let me know if you appetite or satiation worsens 2. Keep going to the gym and working out regularly! Keep working with Erma! 3. Maintain the highly motivated attitude! Follow up in 4-6 months documented in this [facility] History of Present illness Narrative* Laisha Lizarraga APRN.CNP - 10/16/2023 2:30 PM EST Lauren Alcaraz 1940 [address] [facility] [address] [facility] [address] October 16, 2023 [facility] FOLLOW-UP NOTE Accompanied by: spouse Delroy SUBJECTIVE Lauren Alcaraz is a pleasant 83 year old female seen today for a [...] (R26.89) Imbalance Patient was last seen on 06/16/23, at which time: -- tolerating donepezil 5mg-- feeling some benefit from it- perhaps slightly sharper Previous plan: See what Dr. Blanco says about the [...] you need help or have a fall lateat night before you go to bed. 4. Return to OT after the new year- to work on fine motor abilities Today, Lauren and her spouse Delroy returns for a routine follow up visit. 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 We discussed that this is a fairly newly described disease and we are still learning about it. Her memory remains somewhat impaired though she can recount details fairly well of PT sessions fromyesterday or days ago- but Delroy reports that she still struggles to some extent with memory No increasing disorientation She is having progressive weight loss - has lost 20 lbs in past year She has a hiatal hernia which affects her ability to eat very much There are ample opportunities for her to eat but she just cannot eat much She is trying to have healthy snacks in between meals She did try some Ensure/Boost shakes and doesn't really like those much At times she'll have sweets and chocolate, and ice cream She does still go to the gym regularly and is very motivated and active She has a lot of internal drive to be healthy and active, and can remember a lot of her PT instructions - both of which are somewhat atypical for a progressive neurodegenerative disorder, despite ourconcern for this She continues to be very bright and interactive during conversation and does not display the expected slowing of processing speed or difficulty following directions that one might expect for a progressing dementia Other interval history: Falls: negative Sleep: described as normal, feels rested upon waking -- some vivid dreams reported Does take naps some days. Mood: feels her mood is OK - not depressed- but may get a little bit down at times ADL's requires assistance with the following ADL's: using household appliances, taking medications,using telephone, dressing, grocery shopping, house cleaning, driving, and finances Driving?: No Vital Signs: BP 107/55 Pulse 79 LMP (LMP Unknown) Current Outpatient Medications on File Prior to Visit Medication Sig latanoprost (XALATAN) 0.005 % ophthalmic solution Use 1 Drop in both eyes daily at bedtime. donepezil (ARICEPT) 5 mg tablet Take 1 tablet by mouth daily with breakfast. gabapentin (NEURONTIN) 100 mg capsule as needed. traMADol (ULTRAM) 50 mg tablet Take 50 mg by mouth as needed. famotidine (PEPCID) 10 mg tablet Take 10 mg by mouth twice daily. DODEX 1,000 mcg/mL inject 1 milliliter ( 1000 MCG ) intramuscularly Every Month ammonium lactate (LAC-HYDRIN) 12 % lotion (Patient not taking: Reported on 07/28/2023) BD ECLIPSE LUER-BOZENA 3 mL 23 x 1 (Patient not taking: Reported on 07/28/2023) MULTIVITAMIN ORAL Take by mouth once daily. albuterol (PROVENTIL) 2.5 mg /3 mL (0.083 %) nebulizer solution as needed. Lactobacillus acidophilus (PROBIOTIC) 10 billion cell cap once daily. (Patient not taking: Reportedon 07/28/2023) pramipexole (MIRAPEX) 0.5 mg tablet Take 0.5 [...] facility-administered medications on file prior to visit. General Medical Exam: General: Well-nourished appearing, NAD. 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 Please let me know if you appetite or satiation worsens 2. Keep going to the gym and working out regularly! Keep working with Erma! 3. Maintain the highly motivated attitude! Follow up in 4-6 months I spent a total of 40 minutes on the date of service which included [id number]-[id number] patient care and counseling and educating the patient/spouse. Laisha Lizarraga, MSN, LIDDER-C, CNRN CC: 1. No primary care provider on file., (fax) None documented in this [facility]10-30-[facility]23 Instructions* Patient Instructions* Laisha Lizarraga APRN.CNP - 06/16/2023 2:32 PM EDT See what Dr. Blanco says about the [...] you need help or have a fall lateat night before you go to bed. 4. Return to OT after the new year- to work on fine motor abilities Follow up in 4-6 months documented in this [facility]10[facility] History of Present illness Narrative* Laisha Lizarraga APRN.CNP - 06/16/2023 1:45 PM EDT Lauren Alcaraz 1940 [address] [facility] [address] [facility] [address] June 16, 2023 [facility] FOLLOW-UP NOTE Accompanied by: spouse Delroy [facility] Lauren Alcaraz is a pleasant 82 [...] w/ PT/therapy Today, Lauren and her spouse Delroy returns for a routine follow up visit. She is reporting more trouble w/ her L peripheral vision lately, which she has seen her Quantity Surveyor about and who has ordered her a peripheral vision test (completed) and a repeat Brain MRI whichdid not reportedly show any significant changes from [...] the following ADL's: using household appliances, taking medications,grocery shopping, house cleaning, driving, and finances Driving?: No Vital Signs: BP 118/72 Pulse 81 Wt 48.1 kg (106 lb) LMP (LMP Unknown) BMI 21.41 kg/m General Medical Exam: General: Well-nourished appearing, NAD. [...] from 2007 DATE: June 15, 2008 NO: [id number] Indication: Question of seizure Medications: None given [...] you need help or have a fall lateat night before you go to bed. 4. Return to OT after the new year- to work on fine motor abilities Follow up in 4-6 months I spent a total of 40 minutes on the date of service which included [id number]-ks-[id number] patient care and counseling and educating the patient/spouse. Laisha Lizarraga, MSN, LIDDER-C, CNRN CC: 1. No primary care provider on file., (fax) None documented in this [facility]10-30-[facility]23 Nurse Note* Lisbeth Rob - 06/16/2023 1:42 PM EDT Lauren Alcaraz is a 82 year old year old woman accompanied by: spouse. Do you have any changes or new concerns you would like to address at the visit today? No concerns at this time. Vital Signs: BP 118/72 Pulse 81 Wt 48.1 kg (106 lb) LMP (LMP Unknown) BMI 21.41 kg/m documented in this [facility]10-06-2023 Miscellaneous Notes* Telephone Encounter - Romero Ojeda PA-C - 05/23/2023 4:04 PM EDT The following approved medication requests have been transmitted electronically. Requested Prescriptions Signed Prescriptions Disp Refills donepezil (ARICEPT) 5 mg tablet 90 tablet 1 Sig: Take 1 tablet by mouth daily with breakfast. Authorizing Provider: LAISHA LIZARRAGA Ordering User: ROMERO OJEDA PA-C documented in this [facility]08-22-[facility]23 Miscellaneous Notes* Telephone Encounter - Laisha Lizarraga APRN.CNP - 04/08/2023 4:32 PM EDT The following approved medication requests have been transmitted electronically. Requested Prescriptions Signed Prescriptions Disp Refills donepezil (ARICEPT) 5 mg tablet 90 tablet 1 Sig: Take 1 tablet by mouth daily with breakfast. Laisha Lizarraga APRN.CNP documented in this [facility]08-16[facility] Evaluation note* Diagnosis Onset Date Resolution Status Pain of left lower extremity acute Bronchiectasis acute Hypoxemia acute ERIS (obstructive sleep apnea) chronic Breast lump on left side at 1 o'clock position acute Left knee pain acute Restless leg syndrome chroni c Atherosclerotic heart diseas e of [place] coronary artery without angina pectoris acute Essential hypertension acute Lightheadedness acute Hyperlipidemia chronic Mass of upper inner quadrant of left breast acute Contusion of thoracic wall a cute Lumbar contusion acute Atherosclerotic heart diseas e of [place] coronary artery without angina pectoris acute Cancer acute Essential hypertension acute Hyperlipidemia acute Hypothyroidism acute Mass of upper inner quadrant of left breast acute Presence of stent in coronary artery acute Right inguinal hernia acute Vitamin B 12 deficiency acut e Gastroesophageal reflux disease chronic ERIS (obstructive sleep apnea) chronic Restless leg syndrome chroni c Sternal deformity acute Bee sting acute [facility] Work Phone: 1(956) 337-660507-18-2023 Evaluation note* Diagnosis Onset Date Resolution Status Pain of left lower extremity acute Bronchiectasis acute Hypoxemia acute ERIS (obstructive sleep apnea) chronic Breast lump on left side at 1 o'clock position acute Left knee pain acute Restless leg syndrome chroni c Atherosclerotic heart diseas e of [place] coronary artery without angina pectoris acute Essential hypertension acute Lightheadedness acute Hyperlipidemia chronic Mass of upper inner quadrant of left breast acute Contusion of thoracic wall a cute Lumbar contusion acute Atherosclerotic heart diseas e of [place] coronary artery without angina pectoris acute Cancer acute Essential hypertension acute Hyperlipidemia acute Hypothyroidism acute Mass of upper inner quadrant of left breast acute Presence of stent in coronary artery acute Right inguinal hernia acute Vitamin B 12 deficiency acut e Gastroesophageal reflux disease chronic ERIS (obstructive sleep apnea) chronic Restless leg syndrome chroni c Sternal deformity acute [facility] Work Phone: 1(334) 632-678606-28-2023 Discharge summary Author Jerri Boyd [facility] February 12, 2023 1:48pm Note Date/Time February 12, 2023 1:48 pm [facility] Occupational Therapy [facility] [address] [place] [address] [address] [place] [address] / REHABILITATION SERVICES DISCHARGE SUMMARY MR#: [id number] Acct: [id number] Name: LAUREN ALCARAZ Rep #: [id number] : 1940 82 From: Jerri Boyd OTR/L, CHT Referring Dr.: Dr. Chema Perry MD Status: REG RCR Eval Date: Discharge Date: Discharge Summary D/C Summary: It has been my pleasure to treat LAUREN ALCARAZ under orders from Dr. Chema Perry MD, for the diagnosis of Debility for a total of 8 visit(s). Please see the following information for a summary of their discharge status. Overall Improvement % Improvement: 15 Objective Objective/Function: right caustic loader strength 45# left 30# left lateral pinch 4# and tripod pinch 6# pt has not made gains in left caustic loader strength and at this time is d/c. with HEP. pt has hx of left intra-articular fx of left distal radius as well as left thumbinstability this may be limiting pts strength as her caustic loader strength is same from 2021 - pt states her also feels her weakness if from her wrist fx. Plan Plan: D/C with HEP D/C Information Discharge Comments: pt has been seen for 8 OT sessions to increase pts FMS and strength of left hand- pt has not made progress at this time and is d/c with HEP. d/c sentence: If there are questions or concerns regarding this patient's occupational therapy, please fell free to call me at [phone]. Thank you for the referral of this patient. Sincerely, Jerri Boyd, OTR/L, CHT <Electronically signed by Jerri Boyd OTR/L, CHT> 02/12/23 5745 CC: Dr. Chema Perry MD ~ [place] Signed [facility] Work Phone: 1(414) 765-316506-06-2023 Discharge summary Author Gunnar Graves [facility] January 21, 2023 2:08pm Note Date/Time January 21, 2023 2:08p m [facility] Physical Therapy [facility] [address] [facility] [place] [address] / REHABILITATION SERVICES DISCHARGE SUMMARY MR#: [id number] Acct: [id number] Name: LAUREN ALCARAZ Rep #: [id number] : 1940 82 From: Gunnar Graves PT, ATC Referring Dr.: Dr. Chema Perry MD Status: REG RCR Insurance: MEDICARE PART A B [id number] [id number] It has been my pleasure to treat LAUREN ALCARAZ referred by Dr. Chema Perry MD, with the diagnosis of Debility for a total of 68 visit(s). Discharge Date: Please see the following information for a summary of their discharge status. Subjective: I am ready to be done with PT L knee Pain Intensity (Out of 10): 0 % Improvement: 80 Objective/Function: Pt is able to ambulate greater than 1000 feet without difficulty. B LE MMT 4+-5/5 throughout. Pt is now I with gym routine Goal 1:: Increase B LE strength x 1 grade to aid with stair negotiation Goal Progress: Goal Met Goal 2:: Pt will be I with gym routine Goal Progress: Goal Met Goal 3:: Pt will be able to ambulate greater than 1000' in order to aid with community ambulation Goal Progress: Goal Met Plan: DC to HW routine If there are questions or concerns regarding this patient's physical therapy, please feel free to call me at [phone]. Thank you for the referral of thispatient. Sincerely, Gunnar Graves, PT, ATC Balance/Gait/Functional tests - Balance/Special Test Scores Lower Extremity Functional Score: 19 <Electronically signed by Gunnar Graves PT, ATC> 01/21/23 1408 CC: Dr. Chema Perry MD; Dr. Arun Ramos MD ~ [facility] Signed [facility] Work Phone: [phone]) 162-767004-19-2023 History of Present illness Narrative* Dina Jerry RT(R) - 12/04/2022 1:30 PM EDT Radiology Service Progress Note PATIENT NAME: Lauren Alcaraz DATE OF SERVICE: December 04, 2022 TIME: 2:15 PM PATIENT IDENTITY VERIFICATION COMPLETED USING TWO (2) IDENTIFIERS: Name and Date of confirmedby patient verbally. FALL SCREENING: Has the patient [...] IV DATA: Not applicable SIGNED BY: RT Getachew(Morro) December 04, 2022 2:15 PM documented in this encounterE[facility]03-29-2023 Instructions* Patient Instructions* Laisha Lizarraga APRN.[facility] - 11/13/2022 1:56 PM EDT Notify me once you've done the blood work in the beginning of November 17. myChart message me the name of the dizziness medication you were prescribed by Dr. Ramos 3. Please schedule a MRI Brain repeat scan with volumetric software- to rule out other changes thatmight give us a clue about the dizziness since your last scan in 2019 - can call [phone] or schedule at the [facility] desk 4. Please ambulate with caution! Follow up in about 3 months to recheck on things or sooner if tests are done earlier documented in this encounterE[facility]03-29-2023 Nurse Note* Lisbeth Rob - 11/13/2022 1:00 PM EDT Lauren Alcaraz is a 82 year old year old woman accompanied by: spouse. Do you have any changes or new concerns you would like to address at the visit today? I have had dizziness for the last couple of months. Vital Signs: BP 113/69 Pulse 77 Wt 49.9 kg (110 lb) LMP (LMP Unknown) BMI 22.22 kg/m documented in this encounterE[facility]03-29-2023 History of Present illness Narrative* Laisha Lizarraga APRN.CNP - 11/13/2022 7:56 AM EDT Lauren Alcaraz 1940 [address] [facility] [address] [facility] [address] November 13, 2022 [facility] FOLLOW-UP NOTE Accompanied by: spouse Delroy [facility] Lauren Alcaraz is a pleasant 81 [...] 6 hrs/day Today, Lauren and her spouse Delroy return for a routine follow up visit. She feels that her walking has been much better-- has been doing PT in the interim then transferredto a personal lines appraiser, and is not using a wheelchair today. She is using a Rollator today. Her goal is to walk unassisted. She has also been going to Cognitive/Speech therapy and feels it may be helping- someone down in the [place] area linked w/ her other therapies She [...] resources to help care for yourself? 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 Yes [...] (110 lb) LMP (LMP Unknown) BMI 22.22 kg/m General Medical Exam: General: Well-nourished appearing, NAD. [...] from 2007 DATE: June 15, 2008 NO: [id number] Indication: Question of seizure Medications: None given [...] volumetric software- to rule out other changes thatmight give us a clue about the dizziness since your last scan in 2019 - can call [phone] or schedule at the [facility] desk 4. Please ambulate with caution! Follow up in about 3 months to recheck on things or sooner if tests are done earlier I spent a total of 40 minutes on the date of service which included [id number] patient care and counseling and educating the patient/spouse. Laisha Lizarraga, MSN, LIDDER-C, CNRN CC: 1. Chema Perry MD, (fax) [phone] documented in this encounterE[facility]03-01-[address] Keith [facility] October 16, 2022 8:20pm Note Date/Time October 16, 2022 6:53 pm [facility] Medical Records Department [address] [facility] [place] [address] Emergency Department Summary 10/16/22 MR#: [id number] Acct: [id number] Name: LAUREN ALCARAZ Rep #: [id number] : 1940 82 From: Cal Keith MD PCP: Dr. Chema Perry MD Status:REG ER Location: ED HPI History of Present Illness Chief Complaint: Upper Extremity Injury Narrative Narrative: 82-year-old female, essentially flljm-[id number]-[id number], presents with pain and swelling of her left elbow that began this afternoon. She has chronic history of left shoulder pain and is receiving injections into her shoulder by her pain management physician, Dr. Logan. She and her significant other related history of fall 4 to 6 weeks ago where x-rays of the left elbow were performed, and of the left shoulder. She denies any current injury. No fever or chills, but she has pain and swelling in her left elbow. Pain is worse with movement. It is relieved by nothing. PFSH PFSH Medical History aquired autoimmune encephalopathy Arthritis Asthma Atherosclerotic heart disease of [place] coronary artery without angina pectoris Back pain Bladder disease Cancer Cardiology follow-up encounter Contusion of left shoulder Contusion of left wrist Dementia Dementia Depression Difficulty swallowing DVT (deep venous thrombosis) Essential hypertension Falls frequently Gastric reflux h/o back surgery Health care maintenance Heart disease High cholesterol History of heart attack History of stress test Hx of echocardiogram Hypertension Hypertension Influenza A Injury of left elbow Injury of left shoulder Left elbow contusion Low iron Non-smoker Partial complex seizures Presence of stent in coronary artery (~1989) Restless legs Scalp contusion Seizures Shortness of breath on exertion TIA (transient ischemic attack) Walker as ambulation aid Home Medications lacosamide 100 mg tablet (Vimpat) 100 mg PO BID Check with primary doctor 06/28/20 [History Last Taken 10/05/21] mirabegron 50 mg tablet,extended release 24 hr (Myrbetriq) 100 mg PO QHS Check with primary doctor 11/06/20 [History Last Taken 10/04/21] PEP device #1 ea 05/09/21 [Rx Last Taken Unknown] memantine 10 mg tablet 10 mg PO BID Alzheimer's 05/09/21 [History Last Taken 10/05/21] L.acidophil-L.casei-B.bifid-B.longum-FOS 2 billion cell-50 mg capsule (ProbioticBlend) 1 cap PO DAILY Supplement 09/02/21 [History Last Taken 10/05/21] aspirin 81 mg tablet,delayed release (Adult Aspirin Regimen) 81 mg PO DAILY 01/10/22 [History Last Taken Unknown] tolterodine 4 mg capsule,extended release 24 hr (Detrol LA) 4 mg PO DAILY 01/10/22 [History Last Taken Unknown] albuterol sulfate 2.5 mg/3 mL (0.083 %) solution for nebulization 2.5 mg (3 mL) inhalation Q6H PRN Sob &/Or Wheezing #180 mL 02/11/22 [Rx Last Taken Unknown] BD Sry/needle eclips IM 04/25/22 [History Last Taken Unknown] pramipexole 0.5 mg tablet (Mirapex) 0.5 mg PO BID 04/25/22 [History Last Taken Unknown] vortioxetine 20 mg tablet (Trintellix) 20 mg PO DAILY DEPRESSION #90 tabs 05/01/22 [Rx Last Taken Unknown] atorvastatin 40 mg tablet 40 mg PO DAILY #90 tabs 06/07/22 [Rx Last Taken Unknown] cranberry 500 mg capsule 500 mg PO DAILY 06/07/22 [History Last Taken Unknown] d-mannose 500 mg capsule 500 mg PO DAILY 06/07/22 [History Last Taken Unknown] denosumab 60 mg/mL subcutaneous syringe (Prolia) 60 mg subcut [id number] 06/07/22 [History Last Taken Unknown] famotidine 10 mg tablet 10 mg PO BID 06/07/22 [History Last Taken Unknown] multivitamin 1 tab PO DAILY 06/07/22 [History Last Taken Unknown] apixaban 5 mg tablet (Eliquis) 5 mg PO BID #180 tabs 06/24/22 [Rx Last Taken Unknown] tramadol 50 mg tablet 50 mg PO TID PRN pain 4 days #12 tabs 07/13/22 [Rx Last Taken Unknown] cyanocobalamin (vitamin B-12) 1,000 mcg/mL injection solution (Dodex) 1,000 mcg IM QMONTH 08/15/22 [History Last Taken Unknown] levothyroxine 25 mcg tablet (Synthroid) 25 mcg PO DAILY Thyroid #90 tabs 08/22/22 [Rx Last Taken Unknown] Allergy/AdvReac Type Severity Reaction Status Date / Time doxycycline Allergy Mild Vomiting Verified 10/16/22 17:20 oxycodone [From Percocet] Allergy Mild Confusion Verified 10/16/22 17:20 acetaminophen Allergy Other Verified 10/16/22 17:20 [From Darvocet-N] lamotrigine [From Lamictal] Allergy Lip Verified 10/16/22 17:20 Swelling latex Allergy Rash Verified 10/16/22 17:20 moxifloxacin HCl Allergy Other Verified 10/16/22 17:20 [From Avelox] propoxyphene napsylate Allergy Other Verified 10/16/22 17:20 [From Darvocet-N] zolpidem tartrate AdvReac Other Verified 10/16/22 17:20 [From Ambien] Family History Mother CVA (cerebral vascular accident) Arthritis Father Myocardial infarction, Onset Age: 40 Alcoholism Hypertension Sister Anemia Grandmother Bowel disease Osteoporosis Ovarian cancer Surgical History H/O kyphoplasty History of appendectomy History of cardiac catheterization History of carpal tunnel release History of esophagogastroduodenoscopy (EGD) History of hammer toe correction History of hernia surgery History of laryngoscopy History of lumbar laminectomy History of lumpectomy of left breast History of tonsillectomy and adenoidectomy Hx of cataract extraction Hx of colonoscopy Hx of ventral hernia repair Presence of coronary angioplasty implant and graft (~1989) Social History household members: spouse housing: house Smoking Status: Never smoker alcohol intake: current alcohol intake frequency: a few times a week Alcohol type: wine substance use type: does not use caffeine: Yes Type: coffee Number of servings: 1 what type of physical activity do you participate in: other details: PT 3x weekly frequency: 3-4 times per week do you feel safe at home: Yes ROS ROS ED ROS Narrative Constitutional: No fever, no chills. HEENT: No sore throat. No neck pain. No loss of vision. No rhinorrhea. Cardiovascular: No chest pain. No palpitations. No pedal edema. Respiratory: No cough, no shortness of breath. Abdominal: No abdominal pain. No nausea. No vomiting. Genitourinary: No dysuria. No hematuria. Musculoskeletal: No myalgias. Pain and swelling of left elbow. Neurologic: No headaches. No dizziness. No lightheadedness. Skin: No rash. No change in color. Psychiatric: No depression. No anxiety. EXAM Physical Exam Narrative Exam Narrative: Afebrile. Vital signs noted. HEENT: Normocephalic. Atraumatic. PERRL, EOMI. Neck soft and supple. No pointtenderness or step off. Cardiovascular: Regular rate and rhythm. No murmurs, rubs, or gallops appreciated. Respiratory: No tachypnea. Lungs clear to auscultation bilaterally. Gastrointestinal: Abdomen soft, nontender, with normoactive bowel sounds. No rebound or guarding. Neurological: Awake. Alert. Nonfocal, nonlateralizing. Skin: No rash. Normal color. No pallor. Musculoskeletal: No pedal edema. Full range of motion extremities. Positive swelling left olecranon bursa. No erythema. Extension and flexion mechanism ofelbow intact. Able to pronate and supinate. Palpable radial pulse. Const Vital Signs: 10/16/22 17:21 Temperature 98.2 F Temperature Source Temporal Pulse Rate 81 Respiratory Rate 14 Blood Pressure 160/92 H Blood Pressure Mean 114 Pulse Ox 94 Oxygen Delivery Method Room Air MDM MDM MDM Narrative Medical decision making narrative: I do feel that the patient has an olecranon bursitis. I do not think that it kalani septic bursitis which requires antibiotics. She is already in pain management. She has seen Dr. Layne with orthopedics in the past. I will obtain x-rays of the left elbow and compare them to prior if available. I interpreted her left elbow x-rays. There is now olecranon bursa soft tissue swelling but no evidence of an acute fracture. I reviewed the radiology report which confirms this. At this point in time, I feel she can be discharged safelyhome to follow-up with orthopedics. She states she prefers to follow-up initially with her pain management doctor. She was given a dose of tramadol here at her request, and told to continue her tramadol that she takes for her shoulder pain. Additionally, they were concerned because they state that it is difficult for them to get into orthopedics. They were told to call the office as soon as possible for an appointment, even tomorrow. I feel she can be discharged safely home with follow-up. Her elbow was wrapped in an Robin wrap forsupport and mild compression. Return instructions to the emergency department were reviewed. Disposition is discharged home in stable condition. Discharge Plan Triage Chief Complaint: Upper Extremity Injury ED Provider: Cal Keith Dx/Rx/DC Orders Clinical Impression: Olecranon bursitis of left elbow, Elbow pain, left Instructions: ED Bursitis Elbow Olecranon Prescriptions: No Action Vimpat 100 mg tablet 100 mg PO BID Myrbetriq 50 mg tablet extended release 24 hr 100 mg PO QHS memantine 10 mg tablet 10 mg PO BID (DME) PEP device See Rx Instructions .ROUTE .MEDSUPPLY Qty: 1 0RF Rx Instructions: with training aspirin [Adult Aspirin Regimen] 81 mg tablet,delayed release (DR/EC) 81 mg PO DAILY tolterodine [Detrol LA] 4 mg capsule,extended release 24hr 4 mg PO DAILY multivitamin Tablet 1 tab PO DAILY famotidine 10 mg tablet 10 mg PO BID cranberry 500 mg capsule 500 mg PO DAILY Rx Instructions: administer with meals Prolia 60 mg/mL syringe 60 mg subcut [id number] d-mannose 500 mg capsule 500 mg PO DAILY atorvastatin 40 mg tablet 40 mg PO DAILY Qty: 90 3RF pramipexole [Mirapex] 0.5 mg tablet 0.5 mg PO BID BD Sry/needle eclips IM Rx Instructions: 3ml #3578 Probiotic Blend 2 billion cell-50 mg Capsule 1 cap PO DAILY tramadol 50 mg tablet 50 mg PO TID PRN (Reason: pain) 4 Days Qty: 12 0RF albuterol sulfate 2.5 mg /3 mL (0.083 %) solution for nebulization 2.5 mg inhalation Q6H PRN (Reason: Sob &/Or Wheezing) Qty: 180 6RF Trintellix 20 mg tablet 20 mg PO DAILY Qty: 90 3RF Eliquis 5 mg tablet 5 mg PO BID Qty: 180 3RF cyanocobalamin (vitamin B-12) [Dodex] 1,000 mcg/mL solution 1,000 mcg IM QMONTH levothyroxine [Synthroid] 25 mcg tablet 25 mcg PO DAILY Qty: 90 3RF Primary Care Provider: Chema Perry Referrals: Ernesto Logan DO [Non-Staff] - 1 Day Chema Perry MD [Primary Care Provider] - As soon as possible Shiraz Blanchard DO [Med Staff - Active Staff] - 1 Day Disposition Disposition: Home, Self Care What to do if you have Problems For any increased pain, shortness of breath, bleeding, nausea or vomiting, chestpain, or any unexpected problems, contact your Primary Care Provider. Call [facility] ([phone]) or report to the closest Emergency Room. Call 911 if necessary. 10/16/222019 <Electronically signed by Cal Keith MD> Cosigner Signature (if applicable): CC: Dr. Ernesto Logan DO; Dr. Chema Perry MD; Dr. Shiraz Blanchard DO ~ Signed [facility] Work Phone: 1(771) 944-511612-29-2022 Discharge summary Author Gunnar Graves [facility] August 15, 2022 12:04pm Note Date/Time August 15, 2022 12:04pm [facility] Physical Therapy [facility] [address] [place] [address] [address] [place] [address] / REHABILITATION SERVICES DISCHARGE SUMMARY MR#: [id number] Acct: [id number] Name: LAUREN ALCARAZ Rep #: [id number] : 1940 81 From: Gunnar Graves PT, ATC Referring DrLana: Dr. Arun Rmaos MD Status: REG RCR Insurance: MEDICARE PART A B [id number] It has been my pleasure to treat LAUREN ALCARAZ referred by Dr. Arun Ramos MD, with the diagnosis of Debility for a total of 50 visit(s). Discharge Date: Please see the following information for a summary of their discharge status. Subjective: Pt reports she is doing well today. No new complaints % Improvement: 70 Objective/Function: B LE strength 5/5 throughout. Pt is joining with a gym membership and will be continuing with personal training. Pt is able to ambulate greater than 1000 feet with CGA x 1 and no assistive device. Rx goals achieved Goal 1:: Increase B LE strength x 1 grade to aid with stair negotiation Goal Progress: Goal Met Goal 2:: Pt will be I with gym routine Goal Progress: Goal Met Goal 3:: Pt will be able to ambulate greater than 1000' in order to aid with community ambulation Goal Progress: Goal Met Plan: Discharge to gym routine If there are questions or concerns regarding this patient's physical therapy, please feel free to call me at [phone]. Thank you for the referral of thispatient. Sincerely, Gunnar Graves, PT, ATC Balance/Gait/Functional tests - Balance/Special Test Scores Lower Extremity Functional Score: 41 <Electronically signed by Gnunar Graves PT, ATC> 08/15/22 1202 CC: Dr. Chema Perry MD; Dr. Arun Ramos MD ~ [facility] Signed [facility] Work Phone: [phone]) 136-652008-25-2022 Instructions* Patient Instructions* Laisha Lizarraga APRN.RECEPTION CENTRE MANAGER - 04/11/2022 1:39 PM EDT Let's consider having you try some Cognitive Therapy (cognitive-linguistic speech therapy) sessionsthat may help with some of the cognitive issues that you're still dealing with- may help with word-finding, mental calculation, and other things. The main scheduling number is [phone] and some of the therapists are below: Jeny Leonard, SERVICE WORKER HELPER at [facility] - call [phone] Sydni Johnson, SERVICE WORKER HELPER -- [facility] (appt [phone]) Kinza Handley, SERVICE WORKER HELPER at [facility] ([phone]) Kenneth Mayorga (Tricia) at [facility] ([phone]) Sandra Goode at [facility] ([phone]) Ale Lopez, SERVICE WORKER HELPER at [facility] ([phone]) Emily Ruvalcaba, SERVICE WORKER HELPER at [facility] ([phone] ph; [phone] fax) Sydni Moreno, SERVICE WORKER HELPER -- [facility] [place] ([phone]) Chata Patel, SERVICE WORKER HELPER -- [facility] ([phone]) 2. I'd hold off on starting a medication like donepezil (Aricept) - I don't think this stands to help much 3 . try to keep the back pain under control however they recommend 4. Continue the cranberry supplement and watch for UTIs Follow up in about 6 months to recheck on things [facility] History of Present illness Narrative* Laisha Lizarraga APRN.CNP - 04/11/2022 1:00 PM EDT Lauren Alcaraz 1940 [address] [facility] [facility] [address] [facility] [address] April 11, 2022 [facility] FOLLOW-UP NOTE Accompanied by: spouse Delroy SUBJECTIVE Lauren Alcaraz is a pleasant 81 year old female seen today for a follow up visit. 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 She reports feeling a lot better lately-- has been getting PT for the last 8 weeks and she has beenshowing improvements- gets around much better. She's still having low back pain and may get another injection soon. She is sleeping well. Uses nocturnal O2 and her levels have been fairly good. She is no longer taking mirtazapine for sleep. Her mood is good, and she has been laughing more. She explains that she had a brief UTI in the interim- and she is keeping a close eye on her urination and taking cranberry supplements as well. She notes that if she starts to see any discharge, she uses it. She recalls this spontaneously without help from her spouse. She still has some confusion but they are still able to have good conversations about normal topics. She continues to come across very sharp and able to participate in the visit very effectively. She does says that she used to be able do math in her head, and she can not do that as well now. They do still have a caregiver 5-days/week from 10-4p She continues to take memantine 10mg BID and tolerates it well Other interval history: Falls: positive Sleep: described as normal, feels rested upon waking Mood: good ADL's requires assistance with the following ADL's: bathing, using household appliances, taking medications, using telephone, dressing, grocery shopping, house cleaning, driving, and finances Driving?: No No past medical history on file. SOCIAL HISTORY Social History Tobacco Use Smoking status: Never Smokeless tobacco: Never Substance Use Topics Alcohol use: Yes Comment: Weekly 1-2 drinks Drug use: Never Social History reviewed by Laisha Lizarraga APRN.RECEPTION CENTRE MANAGER PATIENT-ENTERED DATA Patient-Reported 04/08/2022 01/17/2022 Where are you currently living? Home / Private residence Home / Private residence Are you using any community resources to help care for yourself? No Other Has your caregiver accompanied you today? Yes Yes Did you receive help completing this questionnaire? Yes Yes If you received help, could you have completed this questionnaire on your own? Yes No Activities of Daily Living (ADL) No flowsheet data found. PROMIS-10 PROMIS 10 04/08/2022 01/17/2022 In general, would you say your health is: Fair Fair In general, would you say your quality of life is: Fair Fair In general, how would you rate your physical health? Fair Fair In general, how would you rate your mental health, including your mood and your ability to think? Poor Poor In general, how would you rate your satisfaction with your social activities and relationships? Fair Fair To what extent are you able to carry out your everyday physical activities such as walking, climbing stairs, carrying groceries, or moving a chair? A little A little In general, please rate how well you carry out your usual social activities and roles. (This includes activities at home, at work and in your community, and responsibilities as a parent, child, spouse, employee, friend, etc.) Poor Poor How would you rate your pain on average? 1 1 How would you rate your fatigue on average? Moderate Moderate How often have you been bothered by emotional problems such as feeling anxious, depressed or irritable? Sometimes Sometimes PROMIS Adult Short Form-Global Health Score (Physical) 37.4 (Fair) 37.4 (Fair) PROMIS Adult Short Form-Global Health Score (Mental) 33.8 (Fair) 33.8 (Fair) PHQ-9 PHQ-9 All Questions 04/08/2022 01/17/2022 Little interest or pleasure in doing things 0 3 Feeling down, depressed, or hopeless 1 1 Trouble falling or staying asleep, or sleeping too much 1 1 Feeling tired or having little energy 1 2 Poor appetite or overeating 0 0 Feeling bad about yourself - or that you are a failure or have let yourself or your family down 0 1 Trouble concentrating on things, such as reading the newspaper or watching television 1 3 Moving or speaking so slowly that other people could have noticed. Or the opposite - being so fidgety or restless that you have been moving around a lot more than usual 0 3 Thoughts that you would be better off , or of hurting yourself in some way 0 0 PHQ-9 Score 4 14 (0-4) minimal depression (5-9) mild depression (10-14) moderate depression (15-19) moderately severe depression (20-27) severe depression Full History of PHQ-9 Scores PHQ-9 Score 04/08/2022 4 01/17/2022 14 11/07/2021 16 10/04/2021 13 11/29/2020 8 10/23/2020 2 Sleep 04/08/2022 01/17/2022 What is your average total sleep time per night over the past 4 weeks? 7 Hours 8 Hours What is your average total sleep time during the day over the past 4 weeks? 1 Hours 1 Hours Have you been diagnosed with sleep apnea? Yes Yes Are you currently using positive airway pressure (PAP) therapy? No No Insomnia Severity Index 04/08/2022 01/17/2022 Difficulty falling asleep 1 1 Difficulty staying asleep 1 2 Problem waking up too early 1 1 Satisfied/dissatisfied with current sleep pattern 2 2 Sleep interferes with daily functions 1 1 Sleep problems noticeable to others 2 1 Worried/distressed about current sleep problems 1 1 Score 9 9 Caregiver-Reported 04/08/2022 01/17/2022 Are you the person who cares for the patient the majority of the time? (Primary Caregiver) Yes Yes How are you related to the patient? Spouse - Do you currently reside with the patient? Yes Yes Are you currently employed outside the home? No No What is your gender? Male Male Please enter your [age] Dementia Severity Rating Scale (DSRS) No flowsheet data found. OBJECTIVE Current Outpatient Medications on File Prior to Visit Medication Sig OXYGEN, HOME THERAPY, 2 L/min by Nasal Cannula route daily at bedtime. albuterol (PROVENTIL) 2.5 mg /3 mL (0.083 %) nebulizer solution as needed. Lactobacillus acidophilus (PROBIOTIC) 10 billion cell cap once daily. mirtazapine (REMERON) 15 mg tablet 7.5 mg daily at bedtime. bisacodyl (DULCOLAX) 10 mg supp as needed. magnesium hydroxide (MOM) 400 mg/5 mL suspension Take by mouth as needed. mineral oil (FLEET MINERAL OIL ENEMA) enema as needed. oxybutynin ER (DITROPAN XL) 10 mg 24 hr tablet Take by mouth once daily. potassium chloride 20 mEq TbER Take 20 mEq by mouth once daily. pramipexole (MIRAPEX) 0.5 mg tablet Take 0.5 mg by mouth three times daily. vortioxetine (TRINTELLIX) 20 mg tablet Take 20 mg by mouth once daily. OTC NUTRITIONAL SUPPLEMENT once daily. Vitamin D3 atorvastatin (LIPITOR) 40 mg tablet Take 40 mg by mouth once daily. ELIQUIS 5 mg tab(s) BID levothyroxine (SYNTHROID) 25 mcg tablet Take 25 mcg by mouth once daily. memantine (NAMENDA) 10 mg tablet MYRBETRIQ 50 mg Tb24 Taking 2 tabs once daily TRINTELLIX 20 mg tablet Once daily lacosamide (VIMPAT) 100 mg tab Take 1 tablet by mouth twice daily for 180 days. nitroglycerin sublingual (NITROQUICK) 0.4 mg SL tablet as needed. IBUPROFEN ORAL Take by mouth as needed. (Patient not taking: Reported on 11/13/2021 ) aspirin, enteric coated (ASPIRIN, ENTERIC COATED) 81 mg EC tablet Take 81 mg by mouth once daily. tolterodine ER (DETROL LA) 4 mg 24 hr capsule Take 4 mg by mouth once daily. denosumab (PROLIA SUBCUTANEOUS) Inject 1 Dose subcutaneously once every 6 months. Last injection November 2020 No current facility-administered medications on file prior to visit. Vital Signs: BP 117/77 Pulse 75 Wt 53.1 kg (117 lb) LMP (LMP Unknown) BMI 23.63 kg/m General Medical Exam: General: Well-nourished appearing, NAD. [...] Content: appropriate Hallucinations: none Judgment: intact Insight: fair Diagnostic Results: MRI Brain from 11/01/19 1. [...] from 2007 DATE: June 15, 2008 NO: [id number] Indication: Question of seizure Medications: None given [...] EEG seizures were seen during this recording. 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 The main scheduling number is [phone] and some of the therapists are below: Jeny Leonard, SERVICE WORKER HELPER at [facility] - call [phone] Sydni Johnson, SERVICE WORKER HELPER -- [facility], Desk [facility] (appt [phone]) Kinza Handley, SERVICE WORKER HELPER at [facility] ([phone]) Kenneth (Alysia) Tierra at [facility] ([phone]) Sandra Goode at [facility] ([phone]) Ale Lopez, SERVICE WORKER HELPER at [facility] ([phone]) Emily Ruvalcaba, SERVICE WORKER HELPER at [facility] ([phone] ph; [phone] fax) Sydni Moreno, SERVICE WORKER HELPER -- [facility] [place] ([phone]) Chata Patel, SERVICE WORKER HELPER -- [facility] ([phone]) 2. I'd hold off on starting a medication like donepezil (Aricept) - I don't think this stands to help much 3 . try to keep the back pain under control however they recommend 4. Continue the cranberry supplement and watch for UTIs Follow up in about 3 months to recheck on things I spent a total of 40 minutes on the date of service which included [id number] patient care and counseling and educating the patient/spouse. Laisha Lizarraga, MSN, LIDDER-C, CNRN documented in this [facility]08-[facility] Nurse Note* Layne Leon LPN - 04/11/2022 12:51 PM EDT Lauren Alcaraz is a 81 year old year old woman accompanied by: spouse. Do you have any changes or new concerns you would like to address at the visit today? Per spouse She has improved mentally since the last time. Vital Signs: BP 117/77 Pulse 75 Wt 53.1 kg (117 lb) LMP (LMP Unknown) BMI 23.63 kg/m documented in this encounterE[facility]06-08-2022 Instructions* Patient Instructions* Laisha Lizarraga APRN.RECEPTION CENTRE MANAGER - 01/23/2022 11:30 AM EDT 1. Continue the PT at home as much as you can-- we want to prevent more falls! 2. We don't feel that a Parkinsons-type medication is necessary or would be helpful at this time 3. We want to overall keep you safe, healthy, and somewhat active in a safe way 4. Would not recommend any medication changes right now Follow up in ~6 months to recheck on things documented in this encounterE[facility]06-[facility]22 History of Present illness Narrative* Mitchel Muse MD - 01/23/2022 11:13 AM EDT Lauren Alcaraz 1940 [address] [facility] [facility] [address] [facility] [address] January 23, 2022 [facility] FOLLOW-UP NOTE Accompanied by: spouse Delroy SUBJECTIVE Lauren Alcaraz is a pleasant 81 year old female seen today for a follow up visit. Lauren Alcaraz is being followed for Dementia without behavioral disturbance, unspecified. Patient was last seen on 11/13/21, at which time: -- Lauren was struggling with some decline since several falls and a hospital admission which also included COVID infection. She had spent some time at [facility] and some of her medications were discontinued by her Radio Interference Expert Dr. Ramos. Today, Lauren and her spouse Delroy return for a routine follow up visit. She has been back home since mid-November - was previously staying at [facility]. Delroy reports that the Physical Therapists have noticed and made mention of some gait freezing. Shewill shuffle, and then freeze up again sometimes. She was much more ambulatory up until the falls near Jul 2021 and since then her gait has worsened a lot. She had been complaining of dizziness and had a test showing a low nocturnal O2 level so she has been placed on nighttime O2- which so far has seemed to help her dizziness per Delroy's report. She continues to have a significant problem w/ short-term memory. She may forget something within 10-15 mins. Her long-term memory is good. Other interval history: Falls: negative in the interim Sleep: described as normal, feels rested upon waking Mood: OK ADL's is dependent with all ADL's Driving?: No No past medical history on file. SOCIAL HISTORY Social History Tobacco Use Smoking status: Never Smoker Smokeless tobacco: Never Used Substance Use Topics Alcohol use: Yes Comment: Weekly 1-2 drinks Drug use: Never Social History reviewed by Laisha Lizarraga APRN.RECEPTION CENTRE MANAGER PATIENT-ENTERED DATA Patient-Reported 01/17/2022 11/07/2021 Where are you currently living? Home / Private residence [facility] facility Are you using any community resources to help care for yourself? Other No Has your caregiver accompanied you today? Yes Yes Did you receive help completing this questionnaire? Yes Yes If you received help, could you have completed this questionnaire on your own? No No Activities of Daily Living (ADL) No flowsheet data found. PROMIS-10 PROMIS 10 01/17/2022 10/04/2021 In general, would you say your health is: Fair Fair In general, would you say your quality of life is: Fair Fair In general, how would you rate your physical health? Fair Poor In general, how would you rate your mental health, including your mood and your ability to think? Poor Fair In general, how would you rate your satisfaction with your social activities and relationships? Fair Poor To what extent are you able to carry out your everyday physical activities such as walking, climbing stairs, carrying groceries, or moving a chair? A little Not at all In general, please rate how well you carry out your usual social activities and roles. (This includes activities at home, at work and in your community, and responsibilities as a parent, child, spouse, employee, friend, etc.) Poor Poor How would you rate your pain on average? 1 5 How would you rate your fatigue on average? Moderate Moderate How often have you been bothered by emotional problems such as feeling anxious, depressed or irritable? Sometimes Sometimes PROMIS Adult Short Form-Global Health Score (Physical) 37.4 (Fair) 29.6 (Poor) PROMIS Adult Short Form-Global Health Score (Mental) 33.8 (Fair) 33.8 (Fair) PHQ-9 PHQ-9 All Questions 01/17/2022 11/07/2021 Little interest or pleasure in doing things 3 2 Feeling down, depressed, or hopeless 1 1 Trouble falling or staying asleep, or sleeping too much 1 0 Feeling tired or having little energy 2 3 Poor appetite or overeating 0 3 Feeling bad about yourself - or that you are a failure or have let yourself or your family down 1 1 Trouble concentrating on things, such as reading the newspaper or watching television 3 3 Moving or speaking so slowly that other people could have noticed. Or the opposite - being so fidgety or restless that you have been moving around a lot more than usual 3 3 Thoughts that you would be better off , or of hurting yourself in some way 0 0 PHQ-9 Score 14 16 (0-4) minimal depression (5-9) mild depression (10-14) moderate depression (15-19) moderately severe depression (20-27) severe depression Full History of PHQ-9 Scores PHQ-9 Score 01/17/2022 14 11/07/2021 16 10/04/2021 13 11/29/2020 8 10/23/2020 2 Sleep 01/17/2022 11/07/2021 What is your average total sleep time per night over the past 4 weeks? 8 hours 7 hours What is your average total sleep time during the day over the past 4 weeks? 1 hours 1 hours Have you been diagnosed with sleep apnea? Yes Yes Are you currently using positive airway pressure (PAP) therapy? No No Insomnia Severity Index 01/17/2022 11/07/2021 Difficulty falling asleep 1 1 Difficulty staying asleep 2 1 Problem waking up too early 1 1 Satisfied/dissatisfied with current sleep pattern 2 1 Sleep interferes with daily functions 1 1 Sleep problems noticeable to others 1 1 Worried/distressed about current sleep problems 1 0 Score 9 6 Caregiver-Reported 01/17/2022 11/07/2021 Are you the person who cares for the patient the majority of the time? (Primary Caregiver) Yes Yes How are you related to the patient? - Spouse Do you currently reside with the patient? Yes No Are you currently employed outside the home? No No What is your gender? Male Male Please enter your age [age] Dementia Severity Rating Scale (DSRS) No [...] 0.5 mg by mouth three times daily. atorvastatin (LIPITOR) 40 mg tablet Take 40 mg by mouth once daily. ELIQUIS 5 mg tab(s) BID levothyroxine (SYNTHROID) 25 mcg tablet Take 25 mcg by mouth once daily. memantine (NAMENDA) 10 mg tablet MYRBETRIQ 50 mg Tb24 Taking 2 tabs once daily TRINTELLIX 20 mg tablet Once daily lacosamide (VIMPAT) 100 mg tab Take [...] every 6 months. Last injection November 2020 mirtazapine (REMERON) 15 mg tablet 7.5 mg daily at bedtime. bisacodyl (DULCOLAX) 10 mg supp as needed. magnesium hydroxide (MOM) 400 mg/5 mL suspension Take by mouth as needed. mineral oil (FLEET MINERAL OIL ENEMA) enema as needed. oxybutynin ER (DITROPAN XL) 10 mg 24 hr tablet Take by mouth once daily. potassium chloride 20 mEq TbER Take 20 mEq by mouth once daily. vortioxetine (TRINTELLIX) 20 mg tablet Take 20 mg by mouth once daily. OTC NUTRITIONAL SUPPLEMENT once daily. Vitamin D3 IBUPROFEN ORAL Take by mouth as needed. (Patient not taking: Reported on 11/13/2021 ) No current facility-administered medications on file prior to visit. Vital Signs: BP 114/72 Pulse 82 Wt 54 kg (119 lb) LMP (LMP Unknown) BMI 24.04 kg/m General Medical Exam: General: Well-nourished appearing, NAD. Awake, alert. HEENT: Normocephalic/atraumatic. Neurological Exam: Cognition: alert and cooperative MoCA: Not assessed today (Previous score: 630 in 10/2021.) Orientation: alert Appearance: normal grooming Eye contact: normal Facial expression: appropriate Psychomotor: normal Speech/Language: unremarkable -can name, repeat with no dysarthria Mood: OK Affect: pleasant PDW:no SI:no Self-injurious behavior:no Emotional state: calm, cooperative Thought Process: logical Thought Content: appropriate Hallucinations: none Judgment: impaired due to cognitive impairment Insight: fair Cranial Nerves II: VFFTC, PERRLA with gaze directed as instructed III, IV, : EOMI with smooth pursuit and normal saccades V: Facial sensation is intact bilaterally with [...] no fasciculations No resting tremor No bradykinesia, abnormal movements or postural instability Horizontal arm extension: some postural tremor BUE Pronator drift: negative Coordination Cerebellar: no dysmetria or dysdiadochokinesis, normal pronation/supination Cerebrospinal tract: Toe tap normal bilaterally, Leg raise normal bilaterally Finger fine motor: Tap w/ thumb normal bilaterally, Flex./ext. normal bilaterally Finger to nose: good Posture and Gait No dystonia, +kyphosis +postural instability, +retropulsion Rise from chair with arms folded: unable- needed x 1-2 assist to stand Gait: Very hesitant w/ assist x 2- short steps, +en bloc turn Diagnostic Results: MRI Brain from 11/01/19 1. [...] from 2007 DATE: June 15, 2008 NO: [id number] Indication: Question of seizure Medications: None given [...] EEG seizures were seen during this recording. ASSESSMENT: (F03.90) Dementia without behavioral disturbance, unspecified dementia type, unclear underlying pathology- outside AD biomarkers negative but there is considerable brain atrophy. She does not exhibitmany features of DLB, possibly mild Parkinsonism, no VH, RBD, or fluctuations. She has a moderate burden of chronic white matter disease. LATE (limbic associated TDP-43 encephalopathy) could be a consideration. 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 Continue the PT at home as much as you can-- we want to prevent more falls! 2. We don't feel that a Parkinsons-type medication is necessary or would be helpful at this time 3. We want to overall keep you safe, healthy, and somewhat active in a safe way 4. Would not recommend any medication changes right now Follow up in ~6 months to recheck on things I spent a total of 40 minutes on the date of service which included [id number] patient care and counseling and educating the patient/spouse. Dr. Muse was present for this visit and is in agreement with the plan stated above. He did perform the neurological exam. Laisha Lizarraga, MSN, LIDDER-C, CNRN History, previous evaluations and examination reviewed with BURAK Lizarraga. I personally interviewed the patient and her spouse and examined the patient, confirming guillermo aspects of the history and examination. Concerning history for memory disorder, however outside biomarkers inconsistent with Alzheimer's disease. I agree with differential which would include LATE (Limbic predominent, Age-related Tdp-43 Encephalopathy) which can have a similar medial temporal lobe like memory disorder. Other consideration would include Lewy body disease and co-existent vascular disease. I agree with the plan for continued PT If at all possible, follow up in 6 months. No medication changes recommended at this time. I spent a total of 40 minutes on the date of the service which included preparing to see the patient, [id number] patient care, completing clinical documentation, obtaining and/or reviewing separately obtained history, performing a medically appropriate examination, counseling and educating the pat ient/family/caregiver and ordering medications, tests, or procedures. [facility] Nurse Note* Layne Leon LPN - 01/23/2022 10:46 AM EDT Lauren Alcaraz is a 81 year old year old woman accompanied by: spouse. Do you have any changes or new concerns you would like to address at the visit today? Dizziness usually in the morning and got freeze when walking per spouse. Vital Signs: BP 114/72 Pulse 82 Wt 54 kg (119 lb) LMP (LMP Unknown) BMI 24.04 kg/m [facility] Instructions* Patient Instructions* Laisha Lizarraga APRN.CNP - 11/13/2021 12:16 PM EDT 1. No changes in medications at this time. 2. Continue working with PT, OT, and other therapies 3. Let me know if changes in sleep are happening- or if your mood isn't improving little by little 4. Do please obtain more caregiver help at home 5. Follow up after D/C from transitional care facility, at that time revisit idea of starting Exelon patch. Follow up in 2-3 months - I will get the ball rolling on having to scheduled with Dr. Muse in January documented [facility] History of Present illness Narrative* Laisha Lizarraga APRN.CNP - 11/13/2021 11:30 AM EDT Lauren Alcaraz 1940 [id number] [facility] [address] [facility] [id number] November 13, 2021 [facility] FOLLOW-UP NOTE Accompanied by: SUBJECTIVE Lauren Alcaraz is a pleasant 81 year old female seen today for a follow up visit. Lauren Alcaraz is being followed for Dementia without behavioral disturbance, unspecified. Patient was last seen on 04/11/21. Today, Pt is in wheelchair with , Delroy. In July she had a fall out of bed in the middle of night-- and from that point onwards pt has been not doing well reports . Resulting in persistent back pain, shortly after pt fell again in the bathroom and hit her chest and subsequently hospitalized and transferred to transitional care in [place] where she contracted Covid-19, she remained at that care facility for approximately one month.. Upon leaving transitional care, pt was returned to hospital d/t spouses inability to care at the level required, pt transferred to [facility] where she currently has been since. Pt reports decline in cognitive function, Scored MOCA 6 today, down from 13 at last visit. Voices frustrations with rapid cognitive changes and changes in mobility, Intermittent headaches, decreased appetite with significant weight loss reported by , and depression. Plan for pt to be d/c from [facility] to home with and assistance from home caregivers and home PT. Plans to for counseling for depression, currently taking trintillex. She has been started on Remeron 7.5mg in the interim as well. Other interval history: Falls: positive (see above) Sleep: described as normal, feels rested upon waking Mood: frustrated ADL's is dependent with all ADL's Driving?: No No past medical history on file. SOCIAL HISTORY Social History Tobacco Use Smoking status: Never Smoker Smokeless tobacco: Never Used Substance Use Topics Alcohol use: Yes Comment: Weekly 1-2 drinks Drug use: Never Social History reviewed by Laisha Lizarraga APRN.[facility] PATIENT-ENTERED DATA Patient-Reported 11/07/2021 10/04/2021 Where are you currently living? [facility] Home / Private residence Are you using any community resources to help care for yourself? 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 Yes Yes Did you receive help completing this questionnaire? Yes Yes If you received help, could you have completed this questionnaire on your own? No No Activities of Daily Living (ADL) No flowsheet data found. PROMIS-10 PROMIS 10 10/04/2021 05/13/2021 In general, would you say your health is: Fair Fair In general, would you say your quality of life is: Fair Fair In general, how would you rate your physical health? Poor Poor In general, how would you rate your mental health, including your mood and your ability to think? Fair Poor In general, how would you rate your satisfaction with your social activities and relationships? Poor Fair To what extent are you able to carry out your everyday physical activities such as walking, climbing stairs, carrying groceries, or moving a chair? Not at all A little In general, please rate how well you carry out your usual social activities and roles. (This includes activities at home, at work and in your community, and responsibilities as a parent, child, spouse, employee, friend, etc.) Poor Fair How would you rate your pain on average? 5 5 How would you rate your fatigue on average? Moderate Severe How often have you been bothered by emotional problems such as feeling anxious, depressed or irritable? Sometimes Often PROMIS Adult Short Form-Global Health Score (Physical) 29.6 (Poor) 29.6 (Poor) PROMIS Adult Short Form-Global Health Score (Mental) 33.8 (Fair) 31.3 (Fair) PHQ-9 PHQ-9 All Questions 11/07/2021 10/04/2021 Little interest or pleasure in doing things 2 2 Feeling down, depressed, or hopeless 1 1 Trouble falling or staying asleep, or sleeping too much 0 0 Feeling tired or having little energy 3 1 Poor appetite or overeating 3 2 Feeling bad about yourself - or that you are a failure or have let yourself or your family down 1 1 Trouble concentrating on things, such as reading the newspaper or watching television 3 3 Moving or speaking so slowly that other people could have noticed. Or the opposite - being so fidgety or restless that you have been moving around a lot more than usual 3 3 Thoughts that you would be better off , or of hurting yourself in some way 0 0 PHQ-9 Score 16 13 (0-4) minimal depression (5-9) mild depression (10-14) moderate depression (15-19) moderately severe depression (20-27) severe depression Full History of PHQ-9 Scores PHQ-9 Score 11/07/2021 16 10/04/2021 13 11/29/2020 8 10/23/2020 2 Sleep 11/07/2021 10/04/2021 What is your average total sleep time per night over the past 4 weeks? 7 hours 7 hours What is your average total sleep time during the day over the past 4 weeks? 1 hours 1 hours Have you been diagnosed with sleep apnea? Yes Yes Are you currently using positive airway pressure (PAP) therapy? No No Insomnia Severity Index 11/07/2021 10/04/2021 Difficulty falling asleep 1 0 Difficulty staying asleep 1 0 Problem waking up too early 1 0 Satisfied/dissatisfied with current sleep pattern 1 1 Sleep interferes with daily functions 1 1 Sleep problems noticeable to others 1 0 Worried/distressed about current sleep problems 0 1 Score 6 3 Caregiver-Reported 11/07/2021 10/04/2021 Are you the person who cares for the patient the majority of the time? (Primary Caregiver) Yes Yes How are you related to the patient? Spouse Spouse Do you currently reside with the patient? No Yes Are you currently employed outside the home? No No What is your gender? Male Male Please enter your age [age] Dementia Severity Rating Scale (DSRS) No flowsheet data found. OBJECTIVE Current Outpatient Medications on File Prior to Visit Medication Sig ELIQUIS 5 mg tab(s) BID levothyroxine (SYNTHROID) 25 mcg tablet Take 25 mcg by mouth once daily. memantine (NAMENDA) 10 mg tablet MYRBETRIQ 50 mg Tb24 Taking 2 tabs once daily TRINTELLIX 20 mg tablet Once daily lacosamide (VIMPAT) 100 mg tab Take 1 tablet by mouth twice daily for 180 days. nitroglycerin sublingual (NITROQUICK) 0.4 mg SL tablet as needed. IBUPROFEN ORAL Take by mouth as needed. aspirin, enteric coated (ASPIRIN, ENTERIC COATED) 81 mg EC tablet Take 81 mg by mouth once daily. tolterodine ER (DETROL LA) 4 mg 24 hr capsule Take 4 mg by mouth once daily. denosumab (PROLIA SUBCUTANEOUS) Inject 1 Dose subcutaneously once every 6 months. Last injection November 2020 No current facility-administered medications on file prior to visit. Vital Signs: BP 125/68 Pulse 83 Wt 56.2 kg (124 lb) LMP (LMP Unknown) BMI 25.04 kg/m General Medical Exam: General: Well-nourished appearing, NAD. Awake, alert. HEENT: Normocephalic/atraumatic. Neurological Exam: Cognition: alert and cooperative Venu Cognitive Assessment (MoCA) Version 1 Total Score: 02/14 Visuospatial/Executive: 0/5 Namin/3 Attention: 08/23 Language: 13 Abstraction: 0/2 Delayed Recall: 08/22 Orientation: 08/23 Education less than or equal to 12th grade: + MoCA Past Scores MoCA 11/13/2021 08/09/2020 MOCA TOTAL SCORE 6 13 out of 30 30 Visuospatial/ Executive 0 1 Naming 2 3 Attention 1 2 Language 1 2 Abstraction 0 2 Delayed Recall 1 0 Orientation 1 3 Education Level - 0 Orientation: alert, confused Appearance: normal grooming Eye contact: normal Facial expression: sad Psychomotor: normal Speech/Language: poverty of speech Mood: frustrated Affect: pleasant PDW:no SI:no Self-injurious behavior:no Emotional state: calm, cooperative Thought Process: logical Thought Content: appropriate Hallucinations: none Judgment: impaired due to lack of insight Insight: poor Diagnostic Results: MRI Brain from 11/01/19 1. [...] from 2007 DATE: June 15, 2008 NO: [id number] Indication: Question of seizure Medications: None given [...] EEG seizures were seen during this recording. 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 No changes in medications at this time. 2. Continue working with PT, OT, and other therapies 3. Let me know if changes in sleep are happening- or if your mood isn't improving little by little 4. Do please obtain more caregiver help at home 5. Follow up after D/C from transitional care facility, at that time revisit idea of starting Exelon patch. Follow up in 2-3 months - I will get the ball rolling on having to scheduled with Dr. Muse in January I spent a total of 40 minutes on the date of service which included [id number] patient care and counseling and educating the patient/spouse. This note was generated with the assistance of Isma Torres, [employer] Student. I was present for the entirety of the visit and participated in the interview and formulation of plan. Laisha Lizarraga MSN, LIDDER-C, CNRN documented in this encounter[facility]03-29-[facility] Nurse Note* Layne Leon LPN - 11/13/2021 11:15 AM EDT Lauren Alcaraz is a 81 year old year old woman accompanied by: spouse. Do you have any changes or new concerns you would like to address at the visit today? Difficulty walking,cognitive decline. Vital Signs: BP 125/68 Pulse 83 Wt 56.2 kg (124 lb) LMP (LMP Unknown) BMI 25.04 kg/m documented in this encounterE[facility] HospitalChief complaint+Reason for visit Narrative* Chief Complaint ELBOW 4 M FU COVID EXPOSURE/WANTS TEST COVID-19 INT LABS LEFT KNEE PAIN XRAY LLE PAIN STAT 6 M FU knee Pain 6 m fu LEFT BREAST MASS LUMP IN L BREAST XRAY POST FALL/BACK PAIN/SWELLING XRAY CONGITIVE COMM,BALANCE,WEAKNESS RX HERE 6 M FU Reason for Visit 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 pectoris Debility Essential hypertension Falls frequently Hyperlipidemia Hypothyroidism Lightheadedness Overactive bladder Seizure disorder Vascular dementia Vitamin B 12 deficiency Vitamin D deficiency Contact with and (suspected) exposure to other viral communicable diseases Pain of left lower extremity Bronchiectasis Hypoxemia ERIS (obstructive sleep apnea) Breast lump on left side at 1 o'clock position Left knee pain Restless leg syndrome Atherosclerotic heart disease of [place] coronary artery without angina pectoris Essential hypertension Lightheadedness Hyperlipidemia Mass of upper inner quadrant of left breast Contusion of thoracic wall Lumbar contusion Atherosclerotic heart disease of [place] coronary artery without angina pectoris Cancer Essential hypertension Hyperlipidemia Hypothyroidism Mass of upper inner quadrant of left breast Presence of stent in coronary artery Right inguinal hernia Vitamin B 12 deficiency Gastroesophageal reflux disease ERIS (obstructive sleep apnea) Restless leg syndrome [facility] Work Phone: Chief complaint+Reason for visit Narrative* Chief Complaint ELBOW 4 M FU COVID EXPOSURE/WANTS TEST COVID-19 INT LABS LEFT KNEE PAIN XRAY LLE PAIN STAT 6 M FU knee Pain 6 m fu LEFT BREAST MASS LUMP IN L BREAST XRAY POST FALL/BACK PAIN/SWELLING XRAY CONGITIVE COMM,BALANCE,WEAKNESS RX HERE 6 M FU CONGITIVE COMM,BALANCE,WEAKNESS RX HERE ERIS Reason for Visit 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 pectoris Debility Essential hypertension Falls frequently Hyperlipidemia Hypothyroidism Lightheadedness Overactive bladder Seizure disorder Vascular dementia Vitamin B 12 deficiency Vitamin D deficiency Contact with and (suspected) exposure to other viral communicable diseases Pain of left lower extremity Bronchiectasis Hypoxemia ERIS (obstructive sleep apnea) Breast lump on left side at 1 o'clock position Left knee pain Restless leg syndrome Atherosclerotic heart disease of [place] coronary artery without angina pectoris Essential hypertension Lightheadedness Hyperlipidemia Mass of upper inner quadrant of left breast Contusion of thoracic wall Lumbar contusion Atherosclerotic heart disease of [place] coronary artery without angina pectoris Cancer Essential hypertension Hyperlipidemia Hypothyroidism Mass of upper inner quadrant of left breast Presence of stent in coronary artery Right inguinal hernia Vitamin B 12 deficiency Gastroesophageal reflux disease ERIS (obstructive sleep apnea) Restless leg syndrome [facility] Work Phone: Chief complaint+Reason for visit Narrative* Chief Complaint COVID-19 INT LABS LEFT KNEE PAIN XRAY LLE PAIN STAT 6 M FU knee Pain 6 m fu LEFT BREAST MASS LUMP IN L BREAST XRAY POST FALL/BACK PAIN/SWELLING XRAY CONGITIVE COMM,BALANCE,WEAKNESS RX HERE 6 M FU ERIS CONGITIVE COMM,BALANCE,WEAKNESS RX HERE LUMP IN MIDDLE OF CHEST Reason for Visit Pain of left lower e xtremity Bronchiectasis Hypoxemia ERIS (obstructive sleep apnea) Breast lump on left side at 1 o'clock position Left knee pain Restless leg syndrome Atherosclerotic heart disease of [place] coronary artery without angina pectoris Essential hypertension Lightheadedness Hyperlipidemia Mass of upper inner quadrant of left breast Contusion of thoracic wall Lumbar contusion Atherosclerotic heart disease of [place] coronary artery without angina pectoris Cancer Essential hypertension Hyperlipidemia Hypothyroidism Mass of upper inner quadrant of left breast Presence of stent in coronary artery Right inguinal hernia Vitamin B 12 deficiency Gastroesophageal reflux disease ERIS (obstructive sleep apnea) Restless leg syndrome Sternal deformity [facility] Work Phone: Evaluation note* Diagnosis Dementia without behavioral disturbance, unspecified dementia type (HCC)- Primary History of complex partial epilepsy Personal history of other disorders of nervous system and sense organs Gait instability Abnormality of gait Multiple falls Personal history of fall Depression, unspecified depression type Anxiety Anxiety state, unspecified Physical deconditioning Debility, unspecified documented [facility]* Diagnosis Onset Date Resolution Status Bronchiectasis acute Fall acute UTI (urinary tract infection) acute Weakness acute Debility acute Depression acute Hyperlipidemia acute Hypothyroidism acute Overactive bladder acute Restless leg syndrome acute Seizure disorder acute Vascular dementia acute Compression fracture of thoracic spine, non-traumatic resolved Costochondritis resolved COVID-19 resolved Osteoporosis resolved Pulmonary embolism resolved Right rib fracture resolved Transient ischemic attack re solved Urinary tract infection reso lved Debility acute Bronchiectasis acute Hiatal hernia acute ERIS (obstructive sleep apnea) chronic COVID-19 resolved [facility] Work Phone: Evaluation note* Diagnosis Dementia without behavioral disturbance, unspecified dementia type (HCC)- Primary History of complex partial epilepsy Personal history of other disorders of nervous system and sense organs Gait instability Abnormality of gait Multiple falls Personal history of fall Depression, unspecified depression type Anxiety Anxiety state, unspecified Physical deconditioning Debility, unspecified documented [facility] encounter [facility]* Diagnosis Onset Date Resolution Status Bronchiectasis acute Hiatal hernia acute ERIS (obstructive sleep apnea) chronic COVID-19 resolved Bronchiectasis acute Shortness of breath on exertion acute COVID-19 resolved [facility] Work Phone: Evaluation note* Diagnosis Onset Date Resolution Status Bronchiectasis acute Shortness of breath on exertion acute COVID-19 resolved [facility] Work Phone: Evaluation note* Diagnosis Dementia without behavioral disturbance, unspecified dementia type (HCC)- Primary History of complex partial epilepsy Personal history of other disorders of nervous system and sense organs Gait instability Abnormality of gait Multiple falls Personal history of fall Physical deconditioning Debility, unspecified Cognitive communication deficit [facility]* Diagnosis Onset Date Resolution Status Debility acute Falls frequently acute Hyperlipidemia acute Hypothyroidism acute Overactive bladder acute Gastroesophageal reflux disease chronic ERIS (obstructive sleep apnea) chronic Seizure disorder chronic Encounter to establish care noneactive Bronchiectasis acute Hypoxemia acute ERIS (obstructive sleep apnea) chronic Intermittent constipation ac yelena Leg edema, left acute Varicose veins of both legs with edema acute Debility acute Lightheadedness acute Overactive bladder acute Atherosclerotic heart diseas e of [place] coronary artery without angina pectoris acute Essential hypertension acute Presence of stent in coronary artery acute Hyperlipidemia chronic Bronchiectasis acute Hypoxemia acute Abdominal wall hernia acute Essential hypertension acute Restless leg syndrome chroni c Seizure disorder chronic Acute bronchitis acute [facility] Work Phone: Evaluation note* Diagnosis Onset Date Resolution Status Bronchiectasis acute Hypoxemia acute ERIS (obstructive sleep apnea) chronic Intermittent constipation ac yelena Leg edema, left acute Varicose veins of both legs with edema acute Debility acute Lightheadedness acute Overactive bladder acute Atherosclerotic heart diseas e of [place] coronary artery without angina pectoris acute Essential hypertension acute Presence of stent in coronary artery acute Hyperlipidemia chronic Bronchiectasis acute Hypoxemia acute Abdominal wall hernia acute Essential hypertension acute Restless leg syndrome chroni c Seizure disorder chronic Acute bronchitis acute [facility] Work Phone: Evaluation note* Diagnosis Onset Date Resolution Status Intermittent constipation ac yel[place] Leg edema, left acute Varicose veins of both legs with edema acute Debility acute Lightheadedness acute Overactive bladder acute Atherosclerotic heart diseas e of [place] coronary artery without angina pectoris acute Essential hypertension acute Presence of stent in coronary artery acute Hyperlipidemia chronic Bronchiectasis acute Hypoxemia acute Abdominal wall hernia acute Essential hypertension acute Restless leg syndrome chroni c Seizure disorder chronic Acute bronchitis acute Right inguinal hernia acute Fall (on)(from) incline, subsequent encounter acute Visit for suture removal acu [facility] Work Phone: Evaluation note* Diagnosis Onset Date Resolution Status Atherosclerotic heart diseas e of [place] coronary artery without angina pectoris acute Essential hypertension acute Presence of stent in coronary artery acute Hyperlipidemia chronic Bronchiectasis acute Hypoxemia acute Abdominal wall hernia acute Essential hypertension acute Restless leg syndrome chroni c Seizure disorder chronic Acute bronchitis acute Right inguinal hernia acute Fall (on)(from) incline, subsequent encounter acute Visit for suture removal acu [facility] Work Phone: Evaluation note* Diagnosis Onset Date Resolution Status Atherosclerotic heart diseas e of [place] coronary artery without angina pectoris acute Essential hypertension acute Presence of stent in coronary artery acute Hyperlipidemia chronic Bronchiectasis acute Hypoxemia acute Abdominal wall hernia acute Essential hypertension acute Restless leg syndrome chroni c Seizure disorder chronic Acute bronchitis acute Right inguinal hernia acute Fall (on)(from) incline, subsequent encounter acute Visit for suture removal acu te Contusion of left shoulder a cute Contusion of left wrist acut e Left elbow contusion acute Scalp contusion acute [facility] Work Phone: Evaluation note* Diagnosis Onset Date Resolution Status Bronchiectasis acute Hypoxemia acute Abdominal wall hernia acute Essential hypertension acute Restless leg syndrome chroni c Seizure disorder chronic Acute bronchitis acute Right inguinal hernia acute Fall (on)(from) incline, subsequent encounter acute Visit for suture removal acu te Contusion of left shoulder a cute Contusion of left wrist acut e Left elbow contusion acute Scalp contusion acute [facility] Work Phone: Evaluation note* Diagnosis 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)- Primary Dementia, unspecified, without behavioral disturbance History of complex partial epilepsy Personal history of other disorders of nervous system and sense organs Gait instability Abnormality of gait Multiple falls Personal history of fall Physical deconditioning Debility, unspecified Depression, unspecified depression type Anxiety Anxiety state, unspecified Dizziness Dizziness and giddiness Imbalance Abnormality of gait [facility] Diagnosis Onset Date Resolution Status Contusion of left shoulder a cute Contusion of left wrist acut e Left elbow contusion acute Scalp contusion acute Atherosclerotic heart diseas e of [place] coronary artery without angina pectoris acute Debility acute Essential hypertension acute Falls frequently acute Hyperlipidemia acute Hypothyroidism acute Lightheadedness acute Overactive bladder acute Seizure disorder acute Vascular dementia acute Vitamin B 12 deficiency acut e Vitamin D deficiency resolve d Contact with and (suspected) exposure to other viral communicable diseases acute [facility] Work Phone: Evaluation note* Diagnosis Onset Date Resolution Status Contusion of left shoulder a cute Contusion of left wrist acut e Left elbow contusion acute Scalp contusion acute Atherosclerotic heart diseas e of [place] coronary artery without angina pectoris acute Debility acute Essential hypertension acute Falls frequently acute Hyperlipidemia acute Hypothyroidism acute Lightheadedness acute Overactive bladder acute Seizure disorder acute Vascular dementia acute Vitamin B 12 deficiency acut e Vitamin D deficiency resolve d Contact with and (suspected) exposure to other viral communicable diseases acute Pain of left lower extremity acute Bronchiectasis acute Hypoxemia acute ERIS (obstructive sleep apnea) chronic Breast lump on left side at 1 o'clock position acute Left knee pain acute Restless leg syndrome chroni c Atherosclerotic heart diseas e of [place] coronary artery without angina pectoris acute Essential hypertension acute Lightheadedness acute Hyperlipidemia chronic Mass of upper inner quadrant of left breast acute [facility] Work Phone: Evaluation note* Diagnosis Onset Date Resolution Status Atherosclerotic heart diseas e of [place] coronary artery without angina pectoris acute Debility acute Essential hypertension acute Falls frequently acute Hyperlipidemia acute Hypothyroidism acute Lightheadedness acute Overactive bladder acute Seizure disorder acute Vascular dementia acute Vitamin B 12 deficiency acut e Vitamin D deficiency resolve d Contact with and (suspected) exposure to other viral communicable diseases acute Pain of left lower extremity acute Bronchiectasis acute Hypoxemia acute ERIS (obstructive sleep apnea) chronic Breast lump on left side at 1 o'clock position acute Left knee pain acute Restless leg syndrome chroni c Atherosclerotic heart diseas e of [place] coronary artery without angina pectoris acute Essential hypertension acute Lightheadedness acute Hyperlipidemia chronic Mass of upper inner quadrant of left breast acute Contusion of thoracic wall a cute Lumbar contusion acute Atherosclerotic heart diseas e of [place] coronary artery without angina pectoris acute Cancer acute Essential hypertension acute Hyperlipidemia acute Hypothyroidism acute Mass of upper inner quadrant of left breast acute Presence of stent in coronary artery acute Right inguinal hernia acute Vitamin B 12 deficiency acut e Gastroesophageal reflux disease chronic ERIS (obstructive sleep apnea) chronic Restless leg syndrome chroni c [facility] Work Phone: Evaluation note* Diagnosis 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, psychotic disturbance, mood disturbance, or anxiety (HCC) [facility] Diagnosis Onset Date Resolution Status Atherosclerotic heart diseas e of [place] coronary artery without angina pectoris acute Essential hypertension acute Lightheadedness acute Hyperlipidemia chronic Mass of upper inner quadrant of left breast acute Contusion of thoracic wall a cute Lumbar contusion acute Atherosclerotic heart diseas e of [place] coronary artery without angina pectoris acute Cancer acute Essential hypertension acute Hyperlipidemia acute Hypothyroidism acute Mass of upper inner quadrant of left breast acute Presence of stent in coronary artery acute Right inguinal hernia acute Vitamin B 12 deficiency acut e Gastroesophageal reflux disease chronic ERIS (obstructive sleep apnea) chronic Restless leg syndrome chroni c Sternal deformity acute Bee sting acute Bronchiectasis acute Hypoxemia [facility] Work Phone: evaluation note* Diagnosis Onset Date Resolution Status Sternal deformity acute Bee sting acute Bronchiectasis acute Hypoxemia chronic Atherosclerotic heart diseas e of [place] coronary artery without angina pectoris acute ALEXANDER (dyspnea on exertion) ac yel[place] Hyperlipidemia 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, psychotic disturbance, mood disturbance, or anxiety (HCC)- Primary History of complex partial epilepsy Personal history of other disorders of nervous system and sense organs Physical deconditioning Debility, unspecified Dizziness Dizziness and giddiness Gait instability Abnormality of gait Fine motor impairment Other specified conditions influencing health status [facility] Diagnosis Onset Date Resolution Status Bee sting acute Bronchiectasis acute Hypoxemia chronic Atherosclerotic heart diseas e of [place] coronary artery without angina pectoris acute ALEXANDER (dyspnea on exertion) ac yel[place] Hyperlipidemia 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, psychotic disturbance, mood disturbance, or anxiety (HCC)- Primary History of complex partial epilepsy Personal history of other disorders of nervous system and sense organs Physical deconditioning Debility, unspecified Gait instability Abnormality of gait Fine motor impairment Other specified conditions influencing health status [facility] Diagnosis Onset Date Resolution Status Atherosclerotic heart diseas e of [place] coronary artery without angina pectoris acute Debility acute Essential hypertension acute Falls frequently acute Hiatal hernia acute Hyperlipidemia acute Restless leg syndrome acute Right inguinal hernia acute Vascular dementia acute Difficulty swallowing chroni c Hiatal hernia acute Mass of upper inner quadrant of left breast acute Sternal deformity acute Osteoporosis chronic Bronchiectasis acute Hypoxemia [facility] Work Phone: Evaluation note* Diagnosis Primary open angle glaucoma (POAG) of both eyes, severe stage- Primary [facility] Diagnosis Onset Date Resolution Status Atherosclerotic heart diseas e of [place] coronary artery without angina pectoris acute Debility acute Essential hypertension acute Falls frequently acute Hiatal hernia acute Hyperlipidemia acute Restless leg syndrome acute Right inguinal hernia acute Vascular dementia acute Difficulty swallowing chroni c Hiatal hernia acute Mass of upper inner quadrant of left breast acute Sternal deformity acute Osteoporosis chronic Bronchiectasis acute Hypoxemia chronic Atherosclerotic heart diseas e of [place] coronary artery without angina pectoris acute Dizziness acute Hyperlipidemia [facility] Work Phone: Evaluation note* Diagnosis Onset Date Resolution Status Hiatal hernia acute Mass of upper inner quadrant of left breast acute Sternal deformity acute Osteoporosis chronic Bronchiectasis acute Hypoxemia chronic Atherosclerotic heart diseas e of [place] coronary artery without angina pectoris acute Dizziness acute Hyperlipidemia 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, psychotic disturbance, mood disturbance, or anxiety (HCC)- Primary Physical deconditioning Debility, unspecified Gait instability Abnormality of gait Fine motor impairment Other specified conditions influencing health status Dizziness Dizziness and giddiness Depression, unspecified depression type 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) (postural) [facility] Diagnosis Primary open angle glaucoma (POAG) of both eyes, severe stage [facility] Diagnosis 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) Dementia, unspecified, without behavioral disturbance [facility] Diagnosis Hiatal hernia- Primary Diaphragmatic hernia without mention of obstruction or gangrene Gastroesophageal reflux disease, unspecified whether esophagitis present documented in this encounter [facility] note* Diagnosis H/O acute myocardial infarction- Primary Old myocardial infarction Cardiomyopathy, unspecified type ([facility]) Pre-op evaluation Preoperative examination, unspecified Encounter to establish care Other reasons for seeking consultation documented in this encounter [facility] note* Diagnosis Hiatal hernia- Primary Diaphragmatic hernia without mention of obstruction or gangrene documented in this encounter [facility] note* Diagnosis Hiatal hernia Diaphragmatic hernia without mention of obstruction or gangrene documented in this encounter [facility] note* Diagnosis 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, psychotic disturbance, mood disturbance, or anxiety ([facility])- Primary Physical deconditioning Debility, unspecified Gait instability Abnormality of gait Fine motor impairment Other specified conditions influencing health status Dizziness Dizziness and giddiness Idiopathic scoliosis and kyphoscoliosis Scoliosis (and kyphoscoliosis), idiopathic Multiple falls Personal history of fall Paresthesia of both feet documented in this encounter [facility] note* Diagnosis Pre-operative examination- Primary Preoperative examination, unspecified 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) Dementia, unspecified, without behavioral disturbance MS (multiple sclerosis) (HCC) Multiple sclerosis History of complex partial epilepsy Personal history of other disorders of nervous system and sense organs Restless legs syndrome Restless legs syndrome (RLS) Atherosclerosis of [place] coronary artery of [place] heart with angina pectoris (HCC) Essential hypertension Unspecified essential hypertension Mixed hyperlipidemia Parkinsonism, unspecified Parkinsonism type (HCC) Seizure disorder (HCC) Unspecified epilepsy without mention of intractable epilepsy History of DVT (deep vein thrombosis) Personal history of venous thrombosis and embolism Obstructive sleep apnea syndrome Obstructive sleep apnea (adult) (pediatric) Bronchiectasis without complication (HCC) Bronchiectasis without acute exacerbation Gastroesophageal reflux disease, unspecified whether esophagitis present Esophageal stricture Stricture and stenosis of esophagus Hypokalemia due to excessive renal loss of potassium Overactive bladder Hypertonicity of bladder Hypothyroidism, unspecified type History of malignant neoplasm of breast Personal history of malignant neoplasm of breast Bilateral leg edema Edema Osteoporosis, unspecified osteoporosis type, unspecified pathological fracture presence Multiple falls Personal history of fall Pulmonary embolism, other, unspecified chronicity, unspecified whether acute cor pulmonale present ([facility]) * Assessment & Plan Note - Willa Torres, DIRECTOR [employer] - 07/20/2024 1:07 PM EST Associated Problem(s): Pulmonary embolism (HCC) Assessment: hx 01/2021, daily eliquis, instructed to hold 2 days prior to upcoming procedure, pt verbalized understanding. * Assessment & Plan Note - Willa Torres APRN.CNP - 07/20/2024 1:04 PM EST Associated Problem(s): Multiple falls Assessment: hx, uses walker * Assessment & Plan Note - Willa Torres APRN.CNP - 07/20/2024 1:04 PM EST Associated Problem(s): Osteoporosis Assessment: receiving Prolia * Assessment & Plan Note - Willa Torres APRN.CNP - 07/20/2024 1:03 PM EST Associated Problem(s): Bilateral leg edema Assessment: on rx * Assessment & Plan Note - Willa oTrres APRN.CNP - 07/20/2024 1:03 PM EST Associated Problem(s): History of malignant neoplasm of breast Assessment: s/p lumpectomy and XRT * Assessment & Plan Note - Willa Torres APRN.CNP - 07/20/2024 12:49 PM EST Associated Problem(s): Hypothyroidism Assessment: stable on rx * Assessment & Plan Note - Willa Torres APRN.CNP - 07/20/2024 12:48 PM EST Associated Problem(s): Overactive bladder Assessment: controlled on rx * Assessment & Plan Note - Willa Torres APRN.CNP - 07/20/2024 12:48 PM EST Associated Problem(s): Hypokalemia due to excessive renal loss of potassium Assessment: hx, potassium 4.2 in [facility] 03/18/2024 * Assessment & Plan Note - Willa Torres APRN.CNP - 07/20/2024 12:45 PM EST Associated Problem(s): Esophageal stricture Assessment: s/p dilation, reports some mild dysphagia * Assessment & Plan Note - Willa Torres APRN.CNP - 07/20/2024 12:45 PM EST Associated Problem(s): Gastroesophageal reflux disease Assessment: controlled on rx * Assessment & Plan Note - Willa Torres APRN.CNP - 07/20/2024 12:44 PM EST Associated Problem(s): Bronchiectasis (HCC) Assessment: rx as needed * Assessment & Plan Note - Willa Torres APRN.CNP - 07/20/2024 12:41 PM EST Associated Problem(s): Obstructive sleep apnea syndrome Assessment: c/w CPAP * Assessment & Plan Note - Willa Torres APRN.CNP - 07/20/2024 12:36 PM EST Associated Problem(s): History of DVT (deep vein thrombosis) Assessment: hx 2012, tx with coumadin, no recurrence * Assessment & Plan Note - Willa Torres APRN.CNP - 07/20/2024 12:34 PM EST Associated Problem(s): Seizure disorder (HCC) Assessment: controlled on rx, last known seizure over 10 years ago * Assessment & Plan Note - Willa Torres APRN.CNP - 07/20/2024 11:04 AM EST Associated Problem(s): Hyperlipidemia Assessment: c/w statin * Assessment & Plan Note - Willa Torres APRN.CNP - 07/20/2024 11:04 AM EST Associated Problem(s): Essential hypertension Assessment: controlled on rx Last 14 BP Last 14 Encounter BP Readings: Date: BP: 07/16/2024 161/81 07/01/2024 106/64 06/18/2024 111/56 05/17/2024 138/72 03/25/2024 137/81 10/16/2023 107/55 06/16/2023 118/72 03/14/2023 135/86 11/13/2022 113/69 07/25/2022 133/72 04/11/2022 117/77 01/23/2022 114/72 11/13/2021 125/68 04/11/2021 129/67 * Assessment & Plan Note - Willa Torres APRN.CNP - 07/19/2024 4:02 PM EST Associated Problem(s): Atherosclerosis of coronary artery Assessment: s/p multiple stent interventions 2001, 2002, 2005 and 2006, c/w statin, and daily ASA, following WHG, last OV 11/12/2023 scanned into epic. Stress test 05/2023 negative for ischemia. Pt denies any current CP, palpitations, sob new or worsening cardiac symptoms. * Assessment & Plan Note - Willa Torres APRN.CNP - 07/19/2024 3:38 PM EST Associated Problem(s): Restless legs syndrome Assessment: controlled on rx * Assessment & Plan Note - Willa Torres APRN.CNP - 07/19/2024 9:19 AM EST Associated Problem(s): History of complex partial epilepsy Assessment: controlled on rx, following neurology * Assessment & Plan Note - Willa Torres APRN.CNP - 07/19/2024 9:12 AM EST Associated Problem(s): MS (multiple sclerosis) (HCC) Assessment: dx given, no tx ever received * Assessment & Plan Note - Willa Torres APRN.CNP - 07/19/2024 9:11 AM EST Associated Problem(s): 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) Assessment: stable on rx with 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 CSF AD biomarkers negative documented in this encounter [facility] note* Diagnosis Pre-operative examination- Primary Preoperative examination, unspecified 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) Dementia, unspecified, without behavioral disturbance MS (multiple sclerosis) (HCC) Multiple sclerosis History of complex partial epilepsy Personal history of other disorders of nervous system and sense organs Restless legs syndrome Restless legs syndrome (RLS) Atherosclerosis of [place] coronary artery of [place] heart with angina pectoris (HCC) Essential hypertension Unspecified essential hypertension Mixed hyperlipidemia Parkinsonism, unspecified Parkinsonism type (HCC) Seizure disorder (HCC) Unspecified epilepsy without mention of intractable epilepsy History of DVT (deep vein thrombosis) Personal history of venous thrombosis and embolism Obstructive sleep apnea syndrome Obstructive sleep apnea (adult) (pediatric) Bronchiectasis without complication (HCC) Bronchiectasis without acute exacerbation Gastroesophageal reflux disease, unspecified whether esophagitis present Esophageal stricture Stricture and stenosis of esophagus Hypokalemia due to excessive renal loss of potassium Overactive bladder Hypertonicity of bladder Hypothyroidism, unspecified type History of malignant neoplasm of breast Personal history of malignant neoplasm of breast Bilateral leg edema Edema Osteoporosis, unspecified osteoporosis type, unspecified pathological fracture presence Multiple falls Personal history of fall Pulmonary embolism, other, unspecified chronicity, unspecified whether acute cor pulmonale present (HCC) Hiatal hernia Diaphragmatic hernia without mention of obstruction or gangrene documented in this encounter [facility] note* Diagnosis Pre-operative examination- Primary Preoperative examination, unspecified 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) Dementia, unspecified, without behavioral disturbance MS (multiple sclerosis) (HCC) Multiple sclerosis History of complex partial epilepsy Personal history of other disorders of nervous system and sense organs Restless legs syndrome Restless legs syndrome (RLS) Atherosclerosis of [place] coronary artery of [place] heart with angina pectoris (HCC) Essential hypertension Unspecified essential hypertension Mixed hyperlipidemia Parkinsonism, unspecified Parkinsonism type (HCC) Seizure disorder (HCC) Unspecified epilepsy without mention of intractable epilepsy History of DVT (deep vein thrombosis) Personal history of venous thrombosis and embolism Obstructive sleep apnea syndrome Obstructive sleep apnea (adult) (pediatric) Bronchiectasis without complication (HCC) Bronchiectasis without acute exacerbation Gastroesophageal reflux disease, unspecified whether esophagitis present Esophageal stricture Stricture and stenosis of esophagus Hypokalemia due to excessive renal loss of potassium Overactive bladder Hypertonicity of bladder Hypothyroidism, unspecified type History of malignant neoplasm of breast Personal history of malignant neoplasm of breast Bilateral leg edema Edema Osteoporosis, unspecified osteoporosis type, unspecified pathological fracture presence Multiple falls Personal history of fall Pulmonary embolism, other, unspecified chronicity, unspecified whether acute cor pulmonale present (HCC) Primary open angle glaucoma (POAG) of both eyes, severe stage [facility] Diagnosis Pre-operative examination- Primary Preoperative examination, unspecified 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) Dementia, unspecified, without behavioral disturbance MS (multiple sclerosis) (HCC) Multiple sclerosis History of complex partial epilepsy Personal history of other disorders of nervous system and sense organs Restless legs syndrome Restless legs syndrome (RLS) Atherosclerosis of [place] coronary artery of [place] heart with angina pectoris (HCC) Essential hypertension Unspecified essential hypertension Mixed hyperlipidemia Parkinsonism, unspecified Parkinsonism type (HCC) Seizure disorder (HCC) Unspecified epilepsy without mention of intractable epilepsy History of DVT (deep vein thrombosis) Personal history of venous thrombosis and embolism Obstructive sleep apnea syndrome Obstructive sleep apnea (adult) (pediatric) Bronchiectasis without complication (HCC) Bronchiectasis without acute exacerbation Gastroesophageal reflux disease, unspecified whether esophagitis present Esophageal stricture Stricture and stenosis of esophagus Hypokalemia due to excessive renal loss of potassium Overactive bladder Hypertonicity of bladder Hypothyroidism, unspecified type History of malignant neoplasm of breast Personal history of malignant neoplasm of breast Bilateral leg edema Edema Osteoporosis, unspecified osteoporosis type, unspecified pathological fracture presence Multiple falls Personal history of fall Pulmonary embolism, other, unspecified chronicity, unspecified whether acute cor pulmonale present (HCC) Pre-op evaluation- Primary Preoperative examination, unspecified H/O acute myocardial infarction Old myocardial infarction Pulmonary embolism without acute cor pulmonale, unspecified chronicity, unspecified pulmonary embolism type (HCC) Carotid bruit, unspecified laterality Essential hypertension Unspecified essential hypertension Mixed hyperlipidemia Obstructive sleep apnea syndrome Obstructive sleep apnea (adult) (pediatric) Hypothyroidism, unspecified type History of DVT (deep vein thrombosis) Personal history of venous thrombosis and embolism Coronary stent patent Coronary artery disease due to lipid rich plaque Cardiomyopathy, unspecified type (HCC) documented in this encounter [facility] note* Diagnosis Pre-operative examination- Primary Preoperative examination, unspecified 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) Dementia, unspecified, without behavioral disturbance MS (multiple sclerosis) (HCC) Multiple sclerosis History of complex partial epilepsy Personal history of other disorders of nervous system and sense organs Restless legs syndrome Restless legs syndrome (RLS) Atherosclerosis of [place] coronary artery of [place] heart with angina pectoris (HCC) Essential hypertension Unspecified essential hypertension Mixed hyperlipidemia Parkinsonism, unspecified Parkinsonism type (HCC) Seizure disorder (HCC) Unspecified epilepsy without mention of intractable epilepsy History of DVT (deep vein thrombosis) Personal history of venous thrombosis and embolism Obstructive sleep apnea syndrome Obstructive sleep apnea (adult) (pediatric) Bronchiectasis without complication (HCC) Bronchiectasis without acute exacerbation Gastroesophageal reflux disease, unspecified whether esophagitis present Esophageal stricture Stricture and stenosis of esophagus Hypokalemia due to excessive renal loss of potassium Overactive bladder Hypertonicity of bladder Hypothyroidism, unspecified type History of malignant neoplasm of breast Personal history of malignant neoplasm of breast Bilateral leg edema Edema Osteoporosis, unspecified osteoporosis type, unspecified pathological fracture presence Multiple falls Personal history of fall Pulmonary embolism, other, unspecified chronicity, unspecified whether acute cor pulmonale present (HCC) Neuropathy- Primary Mononeuritis of unspecified site Paresthesia of both feet Frequent falls Personal history of [facility] Diagnosis Pre-operative examination- Primary Preoperative examination, unspecified 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) Dementia, unspecified, without behavioral disturbance MS (multiple sclerosis) (HCC) Multiple sclerosis History of complex partial epilepsy Personal history of other disorders of nervous system and sense organs Restless legs syndrome Restless legs syndrome (RLS) Atherosclerosis of [place] coronary artery of [place] heart with angina pectoris (HCC) Essential hypertension Unspecified essential hypertension Mixed hyperlipidemia Parkinsonism, unspecified Parkinsonism type (HCC) Seizure disorder (HCC) Unspecified epilepsy without mention of intractable epilepsy History of DVT (deep vein thrombosis) Personal history of venous thrombosis and embolism Obstructive sleep apnea syndrome Obstructive sleep apnea (adult) (pediatric) Bronchiectasis without complication (HCC) Bronchiectasis without acute exacerbation Gastroesophageal reflux disease, unspecified whether esophagitis present Esophageal stricture Stricture and stenosis of esophagus Hypokalemia due to excessive renal loss of potassium Overactive bladder Hypertonicity of bladder Hypothyroidism, unspecified type History of malignant neoplasm of breast Personal history of malignant neoplasm of breast Bilateral leg edema Edema Osteoporosis, unspecified osteoporosis type, unspecified pathological fracture presence Multiple falls Personal history of fall Pulmonary embolism, other, unspecified chronicity, unspecified whether acute cor pulmonale present (HCC) Abnormal results of liver function studies- Primary Nonspecific abnormal results of liver function study Hiatal hernia Diaphragmatic hernia without mention of obstruction or gangrene Epigastric pain Abdominal pain, epigastric Nausea and vomiting, unspecified vomiting type Pre-op exam Preoperative examination, unspecified documented in this encounter [facility] note* Diagnosis Pre-operative examination- Primary Preoperative examination, unspecified 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) Dementia, unspecified, without behavioral disturbance MS (multiple sclerosis) (HCC) Multiple sclerosis History of complex partial epilepsy Personal history of other disorders of nervous system and sense organs Restless legs syndrome Restless legs syndrome (RLS) Atherosclerosis of [place] coronary artery of [place] heart with angina pectoris (HCC) Essential hypertension Unspecified essential hypertension Mixed hyperlipidemia Parkinsonism, unspecified Parkinsonism type (HCC) Seizure disorder (HCC) Unspecified epilepsy without mention of intractable epilepsy History of DVT (deep vein thrombosis) Personal history of venous thrombosis and embolism Obstructive sleep apnea syndrome Obstructive sleep apnea (adult) (pediatric) Bronchiectasis without complication (HCC) Bronchiectasis without acute exacerbation Gastroesophageal reflux disease, unspecified whether esophagitis present Esophageal stricture Stricture and stenosis of esophagus Hypokalemia due to excessive renal loss of potassium Overactive bladder Hypertonicity of bladder Hypothyroidism, unspecified type History of malignant neoplasm of breast Personal history of malignant neoplasm of breast Bilateral leg edema Edema Osteoporosis, unspecified osteoporosis type, unspecified pathological fracture presence Multiple falls Personal history of fall Pulmonary embolism, other, unspecified chronicity, unspecified whether acute cor pulmonale present (HCC) Hiatal hernia- Primary Diaphragmatic hernia without mention of obstruction or gangrene Epigastric pain Abdominal pain, epigastric Nausea and vomiting, unspecified vomiting type Pre-op exam Preoperative examination, unspecified Hiatal hernia Diaphragmatic hernia without mention of obstruction or gangrene Epigastric pain Abdominal pain, epigastric Nausea and vomiting, unspecified vomiting type Pre-op exam Preoperative examination, unspecified [facility] Diagnosis Pre-operative examination- Primary Preoperative examination, unspecified 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) Dementia, unspecified, without behavioral disturbance MS (multiple sclerosis) (HCC) Multiple sclerosis History of complex partial epilepsy Personal history of other disorders of nervous system and sense organs Restless legs syndrome Restless legs syndrome (RLS) Atherosclerosis of [place] coronary artery of [place] heart with angina pectoris (HCC) Essential hypertension Unspecified essential hypertension Mixed hyperlipidemia Parkinsonism, unspecified Parkinsonism type (HCC) Seizure disorder (HCC) Unspecified epilepsy without mention of intractable epilepsy History of DVT (deep vein thrombosis) Personal history of venous thrombosis and embolism Obstructive sleep apnea syndrome Obstructive sleep apnea (adult) (pediatric) Bronchiectasis without complication (HCC) Bronchiectasis without acute exacerbation Gastroesophageal reflux disease, unspecified whether esophagitis present Esophageal stricture Stricture and stenosis of esophagus Hypokalemia due to excessive renal loss of potassium Overactive bladder Hypertonicity of bladder Hypothyroidism, unspecified type History of malignant neoplasm of breast Personal history of malignant neoplasm of breast Bilateral leg edema Edema Osteoporosis, unspecified osteoporosis type, unspecified pathological fracture presence Multiple falls Personal history of fall Pulmonary embolism, other, unspecified chronicity, unspecified whether acute cor pulmonale present (HCC) Abnormal results of liver function studies Nonspecific abnormal results of liver function study Hiatal hernia Diaphragmatic hernia without mention of obstruction or gangrene Epigastric pain Abdominal pain, epigastric Nausea and vomiting, unspecified vomiting type Pre-op exam Preoperative examination, unspecified [facility] Diagnosis Pre-operative examination- Primary Preoperative examination, unspecified 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) Dementia, unspecified, without behavioral disturbance MS (multiple sclerosis) (HCC) Multiple sclerosis History of complex partial epilepsy Personal history of other disorders of nervous system and sense organs Restless legs syndrome Restless legs syndrome (RLS) Atherosclerosis of [place] coronary artery of [place] heart with angina pectoris (HCC) Essential hypertension Unspecified essential hypertension Mixed hyperlipidemia Parkinsonism, unspecified Parkinsonism type (HCC) Seizure disorder (HCC) Unspecified epilepsy without mention of intractable epilepsy History of DVT (deep vein thrombosis) Personal history of venous thrombosis and embolism Obstructive sleep apnea syndrome Obstructive sleep apnea (adult) (pediatric) Bronchiectasis without complication (HCC) Bronchiectasis without acute exacerbation Gastroesophageal reflux disease, unspecified whether esophagitis present Esophageal stricture Stricture and stenosis of esophagus Hypokalemia due to excessive renal loss of potassium Overactive bladder Hypertonicity of bladder Hypothyroidism, unspecified type History of malignant neoplasm of breast Personal history of malignant neoplasm of breast Bilateral leg edema Edema Osteoporosis, unspecified osteoporosis type, unspecified pathological fracture presence Multiple falls Personal history of fall Pulmonary embolism, other, unspecified chronicity, unspecified whether acute cor pulmonale present (HCC) Dilated pancreatic duct- Primary Other specified disease of pancreas Hiatal hernia Diaphragmatic hernia without mention of obstruction or gangrene Epigastric pain Abdominal pain, epigastric Nausea and vomiting, unspecified vomiting type Pre-op exam Preoperative examination, unspecified [facility]* Diagnosis Pre-operative examination- Primary Preoperative examination, unspecified 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) Dementia, unspecified, without behavioral disturbance MS (multiple sclerosis) (HCC) Multiple sclerosis History of complex partial epilepsy Personal history of other disorders of nervous system and sense organs Restless legs syndrome Restless legs syndrome (RLS) Atherosclerosis of [place] coronary artery of [place] heart with angina pectoris (HCC) Essential hypertension Unspecified essential hypertension Mixed hyperlipidemia Parkinsonism, unspecified Parkinsonism type (HCC) Seizure disorder (HCC) Unspecified epilepsy without mention of intractable epilepsy History of DVT (deep vein thrombosis) Personal history of venous thrombosis and embolism Obstructive sleep apnea syndrome Obstructive sleep apnea (adult) (pediatric) Bronchiectasis without complication (HCC) Bronchiectasis without acute exacerbation Gastroesophageal reflux disease, unspecified whether esophagitis present Esophageal stricture Stricture and stenosis of esophagus Hypokalemia due to excessive renal loss of potassium Overactive bladder Hypertonicity of bladder Hypothyroidism, unspecified type History of malignant neoplasm of breast Personal history of malignant neoplasm of breast Bilateral leg edema Edema Osteoporosis, unspecified osteoporosis type, unspecified pathological fracture presence Multiple falls Personal history of fall Pulmonary embolism, other, unspecified chronicity, unspecified whether acute cor pulmonale present (HCC) Lesion of ulnar nerve, right upper limb- Primary Neuropathy Mononeuritis of unspecified site Radiculopathy, cervical region Brachial neuritis or radiculitis nos Hiatal hernia Diaphragmatic hernia without mention of obstruction or gangrene Epigastric pain Abdominal pain, epigastric Nausea and vomiting, unspecified vomiting type Pre-op exam Preoperative examination, unspecified [facility]* Diagnosis Pre-operative examination- Primary Preoperative examination, unspecified 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) Dementia, unspecified, without behavioral disturbance MS (multiple sclerosis) (HCC) Multiple sclerosis History of complex partial epilepsy Personal history of other disorders of nervous system and sense organs Restless legs syndrome Restless legs syndrome (RLS) Atherosclerosis of [place] coronary artery of [place] heart with angina pectoris (HCC) Essential hypertension Unspecified essential hypertension Mixed hyperlipidemia Parkinsonism, unspecified Parkinsonism type (HCC) Seizure disorder (HCC) Unspecified epilepsy without mention of intractable epilepsy History of DVT (deep vein thrombosis) Personal history of venous thrombosis and embolism Obstructive sleep apnea syndrome Obstructive sleep apnea (adult) (pediatric) Bronchiectasis without complication (HCC) Bronchiectasis without acute exacerbation Gastroesophageal reflux disease, unspecified whether esophagitis present Esophageal stricture Stricture and stenosis of esophagus Hypokalemia due to excessive renal loss of potassium Overactive bladder Hypertonicity of bladder Hypothyroidism, unspecified type History of malignant neoplasm of breast Personal history of malignant neoplasm of breast Bilateral leg edema Edema Osteoporosis, unspecified osteoporosis type, unspecified pathological fracture presence Multiple falls Personal history of fall Pulmonary embolism, other, unspecified chronicity, unspecified whether acute cor pulmonale present (HCC) Dilated pancreatic duct Other specified disease of pancreas Choledocholithiasis Calculus of bile duct without mention of cholecystitis or obstruction Choledocholithiasis- Primary Calculus of bile duct without mention of cholecystitis or obstruction Hiatal hernia Diaphragmatic hernia without mention of obstruction or gangrene Epigastric pain Abdominal pain, epigastric Nausea and vomiting, unspecified vomiting type Pre-op exam Preoperative examination, unspecified documented in this encounter [facility] note* Diagnosis Pre-operative examination- Primary Preoperative examination, unspecified 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) Dementia, unspecified, without behavioral disturbance MS (multiple sclerosis) (HCC) Multiple sclerosis History of complex partial epilepsy Personal history of other disorders of nervous system and sense organs Restless legs syndrome Restless legs syndrome (RLS) Atherosclerosis of [place] coronary artery of [place] heart with angina pectoris (HCC) Essential hypertension Unspecified essential hypertension Mixed hyperlipidemia Parkinsonism, unspecified Parkinsonism type (HCC) Seizure disorder (HCC) Unspecified epilepsy without mention of intractable epilepsy History of DVT (deep vein thrombosis) Personal history of venous thrombosis and embolism Obstructive sleep apnea syndrome Obstructive sleep apnea (adult) (pediatric) Bronchiectasis without complication (HCC) Bronchiectasis without acute exacerbation Gastroesophageal reflux disease, unspecified whether esophagitis present Esophageal stricture Stricture and stenosis of esophagus Hypokalemia due to excessive renal loss of potassium Overactive bladder Hypertonicity of bladder Hypothyroidism, unspecified type History of malignant neoplasm of breast Personal history of malignant neoplasm of breast Bilateral leg edema Edema Osteoporosis, unspecified osteoporosis type, unspecified pathological fracture presence Multiple falls Personal history of fall Pulmonary embolism, other, unspecified chronicity, unspecified whether acute cor pulmonale present (HCC) Dilated pancreatic duct Other specified disease of pancreas Choledocholithiasis Calculus of bile duct without mention of cholecystitis or obstruction Hiatal hernia Diaphragmatic hernia without mention of obstruction or gangrene Epigastric pain Abdominal pain, epigastric Nausea and vomiting, unspecified vomiting type Pre-op exam Preoperative examination, unspecified documented in this encounter [facility] note* Diagnosis Pre-operative examination- Primary Preoperative examination, unspecified 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) Dementia, unspecified, without behavioral disturbance MS (multiple sclerosis) (HCC) Multiple sclerosis History of complex partial epilepsy Personal history of other disorders of nervous system and sense organs Restless legs syndrome Restless legs syndrome (RLS) Atherosclerosis of [place] coronary artery of [place] heart with angina pectoris (HCC) Essential hypertension Unspecified essential hypertension Mixed hyperlipidemia Parkinsonism, unspecified Parkinsonism type (HCC) Seizure disorder (HCC) Unspecified epilepsy without mention of intractable epilepsy History of DVT (deep vein thrombosis) Personal history of venous thrombosis and embolism Obstructive sleep apnea syndrome Obstructive sleep apnea (adult) (pediatric) Bronchiectasis without complication (HCC) Bronchiectasis without acute exacerbation Gastroesophageal reflux disease, unspecified whether esophagitis present Esophageal stricture Stricture and stenosis of esophagus Hypokalemia due to excessive renal loss of potassium Overactive bladder Hypertonicity of bladder Hypothyroidism, unspecified type History of malignant neoplasm of breast Personal history of malignant neoplasm of breast Bilateral leg edema Edema Osteoporosis, unspecified osteoporosis type, unspecified pathological fracture presence Multiple falls Personal history of fall Pulmonary embolism, other, unspecified chronicity, unspecified whether acute cor pulmonale present ([facility]) Preoperative examination- Primary Preoperative examination, unspecified Coronary artery disease due to lipid rich plaque Other chronic pain Hypoglycemia Hypoglycemia, unspecified History of complex partial epilepsy Personal history of other disorders of nervous system and sense organs Restless legs syndrome Restless legs syndrome (RLS) History of DVT (deep vein thrombosis) Personal history of venous thrombosis and embolism Bronchiectasis without complication (HCC) Bronchiectasis without acute exacerbation Overactive bladder Hypertonicity of bladder Acquired hypothyroidism Unspecified hypothyroidism Hiatal hernia Diaphragmatic hernia without mention of obstruction or gangrene Essential hypertension Unspecified essential hypertension Mixed hyperlipidemia Obstructive sleep apnea syndrome Obstructive sleep apnea (adult) (pediatric) Gastroesophageal reflux disease, unspecified whether esophagitis present Hypokalemia due to excessive renal loss of potassium Iron deficiency anemia, unspecified iron deficiency anemia type History of malignant neoplasm of breast Personal history of malignant neoplasm of breast 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) Dementia, unspecified, without behavioral disturbance History of pulmonary embolism Personal history of pulmonary embolism Pulmonary HTN (HCC) Other chronic pulmonary heart diseases Tricuspid valve insufficiency, unspecified etiology Kyphosis, unspecified kyphosis type, unspecified spinal region History of transient ischemic attack (TIA) Transient ischemic attack (TIA), and cerebral 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 Depression, unspecified depression type Hiatal hernia Diaphragmatic hernia without mention of obstruction or gangrene Epigastric pain Abdominal pain, epigastric Nausea and vomiting, unspecified vomiting type Pre-op exam Preoperative examination, unspecified * Assessment & Plan Note - Brenda Moreland APRN.CNP - 09/14/2024 8:49 PM EST Associated Problem(s): Depression Assessment: Patient currently being treated for depression, taking Trintellix. - Patient very pleasant and denies any current depression concerns today. * Assessment & Plan Note - Brenda Moreland APRN.CNP - 09/14/2024 8:48 PM EST Associated Problem(s): History of transient ischemic attack (TIA) Assessment: Patient reports TIA episodes several years ago. - Denies any major CVA events. * Assessment & Plan Note - Brenda Moreland APRN.CNP - 09/14/2024 8:45 PM EST Associated Problem(s): Kyphosis Assessment: s/p surgery for kyphosis in the past. - Has severe curvature of spine, hunched over posture. * Assessment & Plan Note - Brenda Moreland APRN.CNP - 09/14/2024 8:41 PM EST Associated Problem(s): Tricuspid regurgitation Assessment: Moderate, 2+ TR on 06/2024 Echo. - Following with cardiology. Murmur heard on today's exam. - Patient denies palpitations or syncope. Does have some lightheadedness but relates to vestibular issues. * Assessment & Plan Note - Brenda Moreland APRN.CNP - 09/14/2024 8:40 PM EST Associated Problem(s): Pulmonary HTN (HCC) Assessment: Echo 06/2024 - Estimated right ventricular systolic pressure is 58 mmHg plus right atrial pressure. - Patient following with cardiology. - Has ERIS, bronchiectasis. Does wear oxygen during sleep. * Assessment & Plan Note - Brenda Moreland APRN.CNP - 09/14/2024 8:37 PM EST Associated Problem(s): History of pulmonary embolism Assessment: H/O PE in 2020. Patient does not recall precipitation event. No known clotting disorders. - Compliant with Eliquis - has OK to hold 2 days pre-op per Dr. Marcial. * Assessment & Plan Note - Brenda Moreland APRN.CNP - 09/14/2024 8:29 PM EST Associated Problem(s): 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) Assessment: Patient A&O x 3 at today's visit. Able to answer all questions appropriately and comprehend discussion had. - Compliant with Namenda and Donezepil. - Pleasant during today's visit * Assessment & Plan Note - Brenda Moreland APRN.CNP - 09/14/2024 8:29 PM EST Associated Problem(s): History of malignant neoplasm of breast Assessment: s/p lumpectomy and radiation. * Assessment & Plan Note - Brenda Moreland APRN.CNP - 09/14/2024 8:28 PM EST Associated Problem(s): Iron deficiency anemia Assessment: Currently stable, last H&H WNL 07/2024. No current supplementation. * Assessment & Plan Note - Brenda Moreland APRN.CNP - 09/14/2024 8:26 PM EST Associated Problem(s): Hypokalemia due to excessive renal loss of potassium Assessment: Taking Potassium supplement with daily Lasix. Latest Ref Rng 08/09/2024 Potassium 3.7 - 5.1 mmol/L 4.7 * Assessment & Plan Note - Brenda Moreland APRN.CNP - 09/14/2024 8:25 PM EST Associated Problem(s): Gastroesophageal reflux disease Assessment: Has regurgitation related to hiatal hernia. - Normal esophagus noted on 07/2024 EGD. - Compliant with Rx. * Assessment & Plan Note - Brenda Moreland APRN.CNP - 09/14/2024 8:23 PM EST Associated Problem(s): Obstructive sleep apnea syndrome Assessment: Does not use CPAP or BIPAP. Does sleep with supplemental oxygen, 2 L at night and with naps. - Reports oxygen saturation can sometimes go as low as 90 but will take deep breaths and can get itback up. * Assessment & Plan Note - Brenda Moreland APRN.CNP - 09/14/2024 5:43 PM EST Associated Problem(s): Hyperlipidemia Assessment: Compliant with Rx, following with cardiology and PCP. * Assessment & Plan Note - Brenda Moreland APRN.CNP - 09/14/2024 5:43 PM EST Associated Problem(s): Essential hypertension Assessment: Compliant with Rx. Last 3 Encounter BP Readings: Date: BP: 09/14/2024 124/64 09/13/2024 191/91 09/13/2024 159/74 * Assessment & Plan Note - Brenda Moreland APRN.CNP - 09/14/2024 5:35 PM EST Associated Problem(s): Hiatal hernia Assessment: Large, 10 cm on EGD yesterday. - Patient reports heaviness in chest, upper abdominal pain and regurgitation present. - Scheduled for repair. * Assessment & Plan Note - Brenda Moreland APRN.CNP - 09/14/2024 2:28 PM EST Associated Problem(s): Hypothyroidism Assessment: Compliant with Rx. Reports dosage has been pretty stable over the past year. TSH - 1.45 (01/2024). * Assessment & Plan Note - Brenda Moreland APRN.CNP - 09/14/2024 2:27 PM EST Associated Problem(s): Overactive bladder Assessment: Currently stable on Rx. Denies any acute urinary symptoms. * Assessment & Plan Note - Brenda Moreland APRN.CNP - 09/14/2024 2:27 PM EST Associated Problem(s): Bronchiectasis (HCC) Assessment: Uses PRN nebulizer typically only when sick or with a cold. - Does note some dyspnea but reports she is deconditioned. Ambulates with a walker, using wheel chair today. Reports she can still take a flight of stairs slowly without any undue SOB. - Lungs clear on today's exam. Oxygen saturation 96% on RA. Chest CT 06/2024: Coarse subpleural reticulation with associated traction bronchiectasis, traction bronchiolectasis and honeycombing cystic changes are present in the anterior LEFT upper lobe and lingula, compatible with radiation fibrosis. There is mild bronchiectasis in bilateral lower lobes with associated bronchial wall thickening and few curvilinear bands of scarring. * Assessment & Plan Note - Brenda Moreland APRN.CNP - 09/14/2024 2:26 PM EST Associated Problem(s): History of DVT (deep vein thrombosis) Assessment: H/O RLE DVT in 2011. Does not recall precipitating event. Completed course of Coumadin. * Assessment & Plan Note - Brenda Moreland APRN.CNP - 09/14/2024 2:23 PM EST Associated Problem(s): Restless legs syndrome Assessment: Taking Mirapex BID and Gabapentin PRN but feels like she needs Gabapentin daily. - Stable as long as she takes medication. * Assessment & Plan Note - Brenda Moreland APRN.CNP - 09/14/2024 2:15 PM EST Associated Problem(s): History of complex partial epilepsy Assessment: Compliant and stable on Rx. - She reports it has been years since she has had a seizure episode. - Reports episodes consist of a blank stare and loss of train of thought. * Assessment & Plan Note - Brenda Moreland APRN.CNP - 09/14/2024 2:12 PM EST Associated Problem(s): Hypoglycemia Assessment: Reports 3 episodes over the past month where she feels very shaky. - She does not check her glucose at this time but just knows based on how she feels. * Assessment & Plan Note - Brenda Moreland APRN.CNP - 09/14/2024 2:10 PM EST Associated Problem(s): Chronic pain Assessment: Following with pain management, Dr. Bloom. Takes Tramadol BID. - Pain mostly in the back but has improved with medication. - Hasn't had surgery in a while but does not recall issues with post-op pain management. Does very well with repositioning and pillows. Reports she has a high tolerance for pain. * Assessment & Plan Note - Brenda Moreland APRN.CNP - 09/14/2024 2:00 PM EST Associated Problem(s): Coronary artery disease due to lipid rich plaque Assessment: s/p multiple PCIs 2001, 2003, 2006 and 2007. -Following with Dr. Sourav Marcial, last OV 07/2024. I think she can proceed with her hiatal hernia surgery laparoscopically. - 05/2023 Stress Test - normal LV function with no evidence of ischemia ejection fraction of 89%. However, it was done with 69% of maximal Peritrate heart rate obtained. - Patient does report some chest heaviness but relates it to hiatal hernia. Has some dyspnea but reports is deconditioned. - Patient denies palpitations, lightheaded, dizziness or syncope. - Taking baby aspirin daily, will hold 1 day before surgery per Dr. Marcial. [facility] Pre-operative examination- Primary Preoperative examination, unspecified 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) Dementia, unspecified, without behavioral disturbance MS (multiple sclerosis) (HCC) Multiple sclerosis History of complex partial epilepsy Personal history of other disorders of nervous system and sense organs Restless legs syndrome Restless legs syndrome (RLS) Atherosclerosis of [place] coronary artery of [place] heart with angina pectoris (HCC) Essential hypertension Unspecified essential hypertension Mixed hyperlipidemia Parkinsonism, unspecified Parkinsonism type (HCC) Seizure disorder (HCC) Unspecified epilepsy without mention of intractable epilepsy History of DVT (deep vein thrombosis) Personal history of venous thrombosis and embolism Obstructive sleep apnea syndrome Obstructive sleep apnea (adult) (pediatric) Bronchiectasis without complication (HCC) Bronchiectasis without acute exacerbation Gastroesophageal reflux disease, unspecified whether esophagitis present Esophageal stricture Stricture and stenosis of esophagus Hypokalemia due to excessive renal loss of potassium Overactive bladder Hypertonicity of bladder Hypothyroidism, unspecified type History of malignant neoplasm of breast Personal history of malignant neoplasm of breast Bilateral leg edema Edema Osteoporosis, unspecified osteoporosis type, unspecified pathological fracture presence Multiple falls Personal history of fall Pulmonary embolism, other, unspecified chronicity, unspecified whether acute cor pulmonale present (HCC) Preoperative examination- Primary Preoperative examination, unspecified Coronary artery disease due to lipid rich plaque Other chronic pain Hypoglycemia Hypoglycemia, unspecified History of complex partial epilepsy Personal history of other disorders of nervous system and sense organs Restless legs syndrome Restless legs syndrome (RLS) History of DVT (deep vein thrombosis) Personal history of venous thrombosis and embolism Bronchiectasis without complication (HCC) Bronchiectasis without acute exacerbation Overactive bladder Hypertonicity of bladder Acquired hypothyroidism Unspecified hypothyroidism Hiatal hernia Diaphragmatic hernia without mention of obstruction or gangrene Essential hypertension Unspecified essential hypertension Mixed hyperlipidemia Obstructive sleep apnea syndrome Obstructive sleep apnea (adult) (pediatric) Gastroesophageal reflux disease, unspecified whether esophagitis present Hypokalemia due to excessive renal loss of potassium Iron deficiency anemia, unspecified iron deficiency anemia type History of malignant neoplasm of breast Personal history of malignant neoplasm of breast 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) Dementia, unspecified, without behavioral disturbance History of pulmonary embolism Personal history of pulmonary embolism Pulmonary HTN (HCC) Other chronic pulmonary heart diseases Tricuspid valve insufficiency, unspecified etiology Kyphosis, unspecified kyphosis type, unspecified spinal region History of transient ischemic attack (TIA) Transient ischemic attack (TIA), and cerebral 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 Depression, unspecified depression type Other chronic pain- Primary [facility] Diagnosis Pre-operative examination- Primary Preoperative examination, unspecified 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) Dementia, unspecified, without behavioral disturbance MS (multiple sclerosis) (HCC) Multiple sclerosis History of complex partial epilepsy Personal history of other disorders of nervous system and sense organs Restless legs syndrome Restless legs syndrome (RLS) Atherosclerosis of [place] coronary artery of [place] heart with angina pectoris (HCC) Essential hypertension Unspecified essential hypertension Mixed hyperlipidemia Parkinsonism, unspecified Parkinsonism type (HCC) Seizure disorder (HCC) Unspecified epilepsy without mention of intractable epilepsy History of DVT (deep vein thrombosis) Personal history of venous thrombosis and embolism Obstructive sleep apnea syndrome Obstructive sleep apnea (adult) (pediatric) Bronchiectasis without complication (HCC) Bronchiectasis without acute exacerbation Gastroesophageal reflux disease, unspecified whether esophagitis present Esophageal stricture Stricture and stenosis of esophagus Hypokalemia due to excessive renal loss of potassium Overactive bladder Hypertonicity of bladder Hypothyroidism, unspecified type History of malignant neoplasm of breast Personal history of malignant neoplasm of breast Bilateral leg edema Edema Osteoporosis, unspecified osteoporosis type, unspecified pathological fracture presence Multiple falls Personal history of fall Pulmonary embolism, other, unspecified chronicity, unspecified whether acute cor pulmonale present (HCC) Preoperative examination- Primary Preoperative examination, unspecified Coronary artery disease due to lipid rich plaque Other chronic pain Hypoglycemia Hypoglycemia, unspecified History of complex partial epilepsy Personal history of other disorders of nervous system and sense organs Restless legs syndrome Restless legs syndrome (RLS) History of DVT (deep vein thrombosis) Personal history of venous thrombosis and embolism Bronchiectasis without complication (HCC) Bronchiectasis without acute exacerbation Overactive bladder Hypertonicity of bladder Acquired hypothyroidism Unspecified hypothyroidism Hiatal hernia Diaphragmatic hernia without mention of obstruction or gangrene Essential hypertension Unspecified essential hypertension Mixed hyperlipidemia Obstructive sleep apnea syndrome Obstructive sleep apnea (adult) (pediatric) Gastroesophageal reflux disease, unspecified whether esophagitis present Hypokalemia due to excessive renal loss of potassium Iron deficiency anemia, unspecified iron deficiency anemia type History of malignant neoplasm of breast Personal history of malignant neoplasm of breast 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) Dementia, unspecified, without behavioral disturbance History of pulmonary embolism Personal history of pulmonary embolism Pulmonary HTN (HCC) Other chronic pulmonary heart diseases Tricuspid valve insufficiency, unspecified etiology Kyphosis, unspecified kyphosis type, unspecified spinal region History of transient ischemic attack (TIA) Transient ischemic attack (TIA), and cerebral 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 Depression, unspecified depression type Pain of upper abdomen- Primary Abdominal pain, other specified site [facility] Diagnosis Pre-operative examination- Primary Preoperative examination, unspecified 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) Dementia, unspecified, without behavioral disturbance MS (multiple sclerosis) (HCC) Multiple sclerosis History of complex partial epilepsy Personal history of other disorders of nervous system and sense organs Restless legs syndrome Restless legs syndrome (RLS) Atherosclerosis of [place] coronary artery of [place] heart with angina pectoris ([facility]) Essential hypertension Unspecified essential hypertension Mixed hyperlipidemia Parkinsonism, unspecified Parkinsonism type (HCC) Seizure disorder (HCC) Unspecified epilepsy without mention of intractable epilepsy History of DVT (deep vein thrombosis) Personal history of venous thrombosis and embolism Obstructive sleep apnea syndrome Obstructive sleep apnea (adult) (pediatric) Bronchiectasis without complication (HCC) Bronchiectasis without acute exacerbation Gastroesophageal reflux disease, unspecified whether esophagitis present Esophageal stricture Stricture and stenosis of esophagus Hypokalemia due to excessive renal loss of potassium Overactive bladder Hypertonicity of bladder Hypothyroidism, unspecified type History of malignant neoplasm of breast Personal history of malignant neoplasm of breast Bilateral leg edema Edema Osteoporosis, unspecified osteoporosis type, unspecified pathological fracture presence Multiple falls Personal history of fall Pulmonary embolism, other, unspecified chronicity, unspecified whether acute cor pulmonale present ([facility]) Preoperative examination- Primary Preoperative examination, unspecified Coronary artery disease due to lipid rich plaque Other chronic pain Hypoglycemia Hypoglycemia, unspecified History of complex partial epilepsy Personal history of other disorders of nervous system and sense organs Restless legs syndrome Restless legs syndrome (RLS) History of DVT (deep vein thrombosis) Personal history of venous thrombosis and embolism Bronchiectasis without complication (HCC) Bronchiectasis without acute exacerbation Overactive bladder Hypertonicity of bladder Acquired hypothyroidism Unspecified hypothyroidism Hiatal hernia Diaphragmatic hernia without mention of obstruction or gangrene Essential hypertension Unspecified essential hypertension Mixed hyperlipidemia Obstructive sleep apnea syndrome Obstructive sleep apnea (adult) (pediatric) Gastroesophageal reflux disease, unspecified whether esophagitis present Hypokalemia due to excessive renal loss of potassium Iron deficiency anemia, unspecified iron deficiency anemia type History of malignant neoplasm of breast Personal history of malignant neoplasm of breast 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) Dementia, unspecified, without behavioral disturbance History of pulmonary embolism Personal history of pulmonary embolism Pulmonary HTN ([facility]) Other chronic pulmonary heart diseases Tricuspid valve insufficiency, unspecified etiology Kyphosis, unspecified kyphosis type, unspecified spinal region History of transient ischemic attack (TIA) Transient ischemic attack (TIA), and cerebral 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 Depression, unspecified depression type 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, psychotic disturbance, mood disturbance, or anxiety (HCC)- Primary Physical deconditioning Debility, unspecified Gait instability Abnormality of gait Fine motor impairment Other specified conditions influencing health status Dizziness Dizziness and giddiness Idiopathic scoliosis and kyphoscoliosis Scoliosis (and kyphoscoliosis), idiopathic Depression, unspecified depression type 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) (postural) Restless legs syndrome Restless legs syndrome (RLS) Other chronic pain Paresthesia of both feet [facility] Diagnosis Pre-operative examination- Primary Preoperative examination, unspecified 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) Dementia, unspecified, without behavioral disturbance MS (multiple sclerosis) (HCC) Multiple sclerosis History of complex partial epilepsy Personal history of other disorders of nervous system and sense organs Restless legs syndrome Restless legs syndrome (RLS) Atherosclerosis of [place] coronary artery of [place] heart with angina pectoris (HCC) Essential hypertension Unspecified essential hypertension Mixed hyperlipidemia Parkinsonism, unspecified Parkinsonism type (HCC) Seizure disorder (HCC) Unspecified epilepsy without mention of intractable epilepsy History of DVT (deep vein thrombosis) Personal history of venous thrombosis and embolism Obstructive sleep apnea syndrome Obstructive sleep apnea (adult) (pediatric) Bronchiectasis without complication (HCC) Bronchiectasis without acute exacerbation Gastroesophageal reflux disease, unspecified whether esophagitis present Esophageal stricture Stricture and stenosis of esophagus Hypokalemia due to excessive renal loss of potassium Overactive bladder Hypertonicity of bladder Hypothyroidism, unspecified type History of malignant neoplasm of breast Personal history of malignant neoplasm of breast Bilateral leg edema Edema Osteoporosis, unspecified osteoporosis type, unspecified pathological fracture presence Multiple falls Personal history of fall Pulmonary embolism, other, unspecified chronicity, unspecified whether acute cor pulmonale present (HCC) Preoperative examination- Primary Preoperative examination, unspecified Coronary artery disease due to lipid rich plaque Other chronic pain Hypoglycemia Hypoglycemia, unspecified History of complex partial epilepsy Personal history of other disorders of nervous system and sense organs Restless legs syndrome Restless legs syndrome (RLS) History of DVT (deep vein thrombosis) Personal history of venous thrombosis and embolism Bronchiectasis without complication (HCC) Bronchiectasis without acute exacerbation Overactive bladder Hypertonicity of bladder Acquired hypothyroidism Unspecified hypothyroidism Hiatal hernia Diaphragmatic hernia without mention of obstruction or gangrene Essential hypertension Unspecified essential hypertension Mixed hyperlipidemia Obstructive sleep apnea syndrome Obstructive sleep apnea (adult) (pediatric) Gastroesophageal reflux disease, unspecified whether esophagitis present Hypokalemia due to excessive renal loss of potassium Iron deficiency anemia, unspecified iron deficiency anemia type History of malignant neoplasm of breast Personal history of malignant neoplasm of breast 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) Dementia, unspecified, without behavioral disturbance History of pulmonary embolism Personal history of pulmonary embolism Pulmonary HTN (HCC) Other chronic pulmonary heart diseases Tricuspid valve insufficiency, unspecified etiology Kyphosis, unspecified kyphosis type, unspecified spinal region History of transient ischemic attack (TIA) Transient ischemic attack (TIA), and cerebral 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 Depression, unspecified depression type Decreased activities of daily living (ADL)- Primary Fine motor impairment Other specified conditions influencing health status Lack of coordination Weakness Other malaise and fatigue [facility] Diagnosis Pre-operative examination- Primary Preoperative examination, unspecified 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) Dementia, unspecified, without behavioral disturbance MS (multiple sclerosis) (HCC) Multiple sclerosis History of complex partial epilepsy Personal history of other disorders of nervous system and sense organs Restless legs syndrome Restless legs syndrome (RLS) Atherosclerosis of [place] coronary artery of [place] heart with angina pectoris (HCC) Essential hypertension Unspecified essential hypertension Mixed hyperlipidemia Parkinsonism, unspecified Parkinsonism type (HCC) Seizure disorder (HCC) Unspecified epilepsy without mention of intractable epilepsy History of DVT (deep vein thrombosis) Personal history of venous thrombosis and embolism Obstructive sleep apnea syndrome Obstructive sleep apnea (adult) (pediatric) Bronchiectasis without complication (HCC) Bronchiectasis without acute exacerbation Gastroesophageal reflux disease, unspecified whether esophagitis present Esophageal stricture Stricture and stenosis of esophagus Hypokalemia due to excessive renal loss of potassium Overactive bladder Hypertonicity of bladder Hypothyroidism, unspecified type History of malignant neoplasm of breast Personal history of malignant neoplasm of breast Bilateral leg edema Edema Osteoporosis, unspecified osteoporosis type, unspecified pathological fracture presence Multiple falls Personal history of fall Pulmonary embolism, other, unspecified chronicity, unspecified whether acute cor pulmonale present (HCC) Preoperative examination- Primary Preoperative examination, unspecified Coronary artery disease due to lipid rich plaque Other chronic pain Hypoglycemia Hypoglycemia, unspecified History of complex partial epilepsy Personal history of other disorders of nervous system and sense organs Restless legs syndrome Restless legs syndrome (RLS) History of DVT (deep vein thrombosis) Personal history of venous thrombosis and embolism Bronchiectasis without complication (HCC) Bronchiectasis without acute exacerbation Overactive bladder Hypertonicity of bladder Acquired hypothyroidism Unspecified hypothyroidism Hiatal hernia Diaphragmatic hernia without mention of obstruction or gangrene Essential hypertension Unspecified essential hypertension Mixed hyperlipidemia Obstructive sleep apnea syndrome Obstructive sleep apnea (adult) (pediatric) Gastroesophageal reflux disease, unspecified whether esophagitis present Hypokalemia due to excessive renal loss of potassium Iron deficiency anemia, unspecified iron deficiency anemia type History of malignant neoplasm of breast Personal history of malignant neoplasm of breast 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) Dementia, unspecified, without behavioral disturbance History of pulmonary embolism Personal history of pulmonary embolism Pulmonary HTN (HCC) Other chronic pulmonary heart diseases Tricuspid valve insufficiency, unspecified etiology Kyphosis, unspecified kyphosis type, unspecified spinal region History of transient ischemic attack (TIA) Transient ischemic attack (TIA), and cerebral 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 Depression, unspecified depression type S/P repair of paraesophageal hernia- Primary Other postprocedural status [facility] Diagnosis Pre-operative examination- Primary Preoperative examination, unspecified 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) Dementia, unspecified, without behavioral disturbance MS (multiple sclerosis) (HCC) Multiple sclerosis History of complex partial epilepsy Personal history of other disorders of nervous system and sense organs Restless legs syndrome Restless legs syndrome (RLS) Atherosclerosis of [place] coronary artery of [place] heart with angina pectoris (HCC) Essential hypertension Unspecified essential hypertension Mixed hyperlipidemia Parkinsonism, unspecified Parkinsonism type (HCC) Seizure disorder (HCC) Unspecified epilepsy without mention of intractable epilepsy History of DVT (deep vein thrombosis) Personal history of venous thrombosis and embolism Obstructive sleep apnea syndrome Obstructive sleep apnea (adult) (pediatric) Bronchiectasis without complication (HCC) Bronchiectasis without acute exacerbation Gastroesophageal reflux disease, unspecified whether esophagitis present Esophageal stricture Stricture and stenosis of esophagus Hypokalemia due to excessive renal loss of potassium Overactive bladder Hypertonicity of bladder Hypothyroidism, unspecified type History of malignant neoplasm of breast Personal history of malignant neoplasm of breast Bilateral leg edema Edema Osteoporosis, unspecified osteoporosis type, unspecified pathological fracture presence Multiple falls Personal history of fall Pulmonary embolism, other, unspecified chronicity, unspecified whether acute cor pulmonale present (HCC) Preoperative examination- Primary Preoperative examination, unspecified Coronary artery disease due to lipid rich plaque Other chronic pain Hypoglycemia Hypoglycemia, unspecified History of complex partial epilepsy Personal history of other disorders of nervous system and sense organs Restless legs syndrome Restless legs syndrome (RLS) History of DVT (deep vein thrombosis) Personal history of venous thrombosis and embolism Bronchiectasis without complication (HCC) Bronchiectasis without acute exacerbation Overactive bladder Hypertonicity of bladder Acquired hypothyroidism Unspecified hypothyroidism Hiatal hernia Diaphragmatic hernia without mention of obstruction or gangrene Essential hypertension Unspecified essential hypertension Mixed hyperlipidemia Obstructive sleep apnea syndrome Obstructive sleep apnea (adult) (pediatric) Gastroesophageal reflux disease, unspecified whether esophagitis present Hypokalemia due to excessive renal loss of potassium Iron deficiency anemia, unspecified iron deficiency anemia type History of malignant neoplasm of breast Personal history of malignant neoplasm of breast 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) Dementia, unspecified, without behavioral disturbance History of pulmonary embolism Personal history of pulmonary embolism Pulmonary HTN (HCC) Other chronic pulmonary heart diseases Tricuspid valve insufficiency, unspecified etiology Kyphosis, unspecified kyphosis type, unspecified spinal region History of transient ischemic attack (TIA) Transient ischemic attack (TIA), and cerebral 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 Depression, unspecified depression type Primary open angle glaucoma (POAG) of both eyes, severe stage [facility] Pre-operative examination- Primary Preoperative examination, unspecified 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) Dementia, unspecified, without behavioral disturbance MS (multiple sclerosis) (HCC) Multiple sclerosis History of complex partial epilepsy Personal history of other disorders of nervous system and sense organs Restless legs syndrome Restless legs syndrome (RLS) Atherosclerosis of [place] coronary artery of [place] heart with angina pectoris ([facility]) Essential hypertension Unspecified essential hypertension Mixed hyperlipidemia Parkinsonism, unspecified Parkinsonism type (HCC) Seizure disorder (HCC) Unspecified epilepsy without mention of intractable epilepsy History of DVT (deep vein thrombosis) Personal history of venous thrombosis and embolism Obstructive sleep apnea syndrome Obstructive sleep apnea (adult) (pediatric) Bronchiectasis without complication (HCC) Bronchiectasis without acute exacerbation Gastroesophageal reflux disease, unspecified whether esophagitis present Esophageal stricture Stricture and stenosis of esophagus Hypokalemia due to excessive renal loss of potassium Overactive bladder Hypertonicity of bladder Hypothyroidism, unspecified type History of malignant neoplasm of breast Personal history of malignant neoplasm of breast Bilateral leg edema Edema Osteoporosis, unspecified osteoporosis type, unspecified pathological fracture presence Multiple falls Personal history of fall Pulmonary embolism, other, unspecified chronicity, unspecified whether acute cor pulmonale present ([facility]) Preoperative examination- Primary Preoperative examination, unspecified Coronary artery disease due to lipid rich plaque Other chronic pain Hypoglycemia Hypoglycemia, unspecified History of complex partial epilepsy Personal history of other disorders of nervous system and sense organs Restless legs syndrome Restless legs syndrome (RLS) History of DVT (deep vein thrombosis) Personal history of venous thrombosis and embolism Bronchiectasis without complication (HCC) Bronchiectasis without acute exacerbation Overactive bladder Hypertonicity of bladder Acquired hypothyroidism Unspecified hypothyroidism Hiatal hernia Diaphragmatic hernia without mention of obstruction or gangrene Essential hypertension Unspecified essential hypertension Mixed hyperlipidemia Obstructive sleep apnea syndrome Obstructive sleep apnea (adult) (pediatric) Gastroesophageal reflux disease, unspecified whether esophagitis present Hypokalemia due to excessive renal loss of potassium Iron deficiency anemia, unspecified iron deficiency anemia type History of malignant neoplasm of breast Personal history of malignant neoplasm of breast 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) Dementia, unspecified, without behavioral disturbance History of pulmonary embolism Personal history of pulmonary embolism Pulmonary HTN (HCC) Other chronic pulmonary heart diseases Tricuspid valve insufficiency, unspecified etiology Kyphosis, unspecified kyphosis type, unspecified spinal region History of transient ischemic attack (TIA) Transient ischemic attack (TIA), and cerebral 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 Depression, unspecified depression type Nausea- Primary Nausea alone Generalized abdominal pain Abdominal pain, generalized [facility] Diagnosis Pre-operative examination- Primary Preoperative examination, unspecified 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) Dementia, unspecified, without behavioral disturbance MS (multiple sclerosis) (HCC) Multiple sclerosis History of complex partial epilepsy Personal history of other disorders of nervous system and sense organs Restless legs syndrome Restless legs syndrome (RLS) Atherosclerosis of [place] coronary artery of [place] heart with angina pectoris (HCC) Essential hypertension Unspecified essential hypertension Mixed hyperlipidemia Parkinsonism, unspecified Parkinsonism type (HCC) Seizure disorder (HCC) Unspecified epilepsy without mention of intractable epilepsy History of DVT (deep vein thrombosis) Personal history of venous thrombosis and embolism Obstructive sleep apnea syndrome Obstructive sleep apnea (adult) (pediatric) Bronchiectasis without complication (HCC) Bronchiectasis without acute exacerbation Gastroesophageal reflux disease, unspecified whether esophagitis present Esophageal stricture Stricture and stenosis of esophagus Hypokalemia due to excessive renal loss of potassium Overactive bladder Hypertonicity of bladder Hypothyroidism, unspecified type History of malignant neoplasm of breast Personal history of malignant neoplasm of breast Bilateral leg edema Edema Osteoporosis, unspecified osteoporosis type, unspecified pathological fracture presence Multiple falls Personal history of fall Pulmonary embolism, other, unspecified chronicity, unspecified whether acute cor pulmonale present (HCC) Preoperative examination- Primary Preoperative examination, unspecified Coronary artery disease due to lipid rich plaque Other chronic pain Hypoglycemia Hypoglycemia, unspecified History of complex partial epilepsy Personal history of other disorders of nervous system and sense organs Restless legs syndrome Restless legs syndrome (RLS) History of DVT (deep vein thrombosis) Personal history of venous thrombosis and embolism Bronchiectasis without complication (HCC) Bronchiectasis without acute exacerbation Overactive bladder Hypertonicity of bladder Acquired hypothyroidism Unspecified hypothyroidism Hiatal hernia Diaphragmatic hernia without mention of obstruction or gangrene Essential hypertension Unspecified essential hypertension Mixed hyperlipidemia Obstructive sleep apnea syndrome Obstructive sleep apnea (adult) (pediatric) Gastroesophageal reflux disease, unspecified whether esophagitis present Hypokalemia due to excessive renal loss of potassium Iron deficiency anemia, unspecified iron deficiency anemia type History of malignant neoplasm of breast Personal history of malignant neoplasm of breast 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) Dementia, unspecified, without behavioral disturbance History of pulmonary embolism Personal history of pulmonary embolism Pulmonary HTN (HCC) Other chronic pulmonary heart diseases Tricuspid valve insufficiency, unspecified etiology Kyphosis, unspecified kyphosis type, unspecified spinal region History of transient ischemic attack (TIA) Transient ischemic attack (TIA), and cerebral 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 Depression, unspecified depression type Degeneration of intervertebral disc of lumbar region, unspecified whether pain present- Primary Left leg paresthesias Disturbance of skin sensation Right leg paresthesias Disturbance of skin sensation Ulnar neuropathy of right upper extremity Lesion of ulnar nerve [facility] Diagnosis Pre-operative examination- Primary Preoperative examination, unspecified 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) Dementia, unspecified, without behavioral disturbance MS (multiple sclerosis) (HCC) Multiple sclerosis History of complex partial epilepsy Personal history of other disorders of nervous system and sense organs Restless legs syndrome Restless legs syndrome (RLS) Atherosclerosis of [place] coronary artery of [place] heart with angina pectoris (HCC) Essential hypertension Unspecified essential hypertension Mixed hyperlipidemia Parkinsonism, unspecified Parkinsonism type (HCC) Seizure disorder (HCC) Unspecified epilepsy without mention of intractable epilepsy History of DVT (deep vein thrombosis) Personal history of venous thrombosis and embolism Obstructive sleep apnea syndrome Obstructive sleep apnea (adult) (pediatric) Bronchiectasis without complication (HCC) Bronchiectasis without acute exacerbation Gastroesophageal reflux disease, unspecified whether esophagitis present Esophageal stricture Stricture and stenosis of esophagus Hypokalemia due to excessive renal loss of potassium Overactive bladder Hypertonicity of bladder Hypothyroidism, unspecified type History of malignant neoplasm of breast Personal history of malignant neoplasm of breast Bilateral leg edema Edema Osteoporosis, unspecified osteoporosis type, unspecified pathological fracture presence Multiple falls Personal history of fall Pulmonary embolism, other, unspecified chronicity, unspecified whether acute cor pulmonale present (HCC) Preoperative examination- Primary Preoperative examination, unspecified Coronary artery disease due to lipid rich plaque Other chronic pain Hypoglycemia Hypoglycemia, unspecified History of complex partial epilepsy Personal history of other disorders of nervous system and sense organs Restless legs syndrome Restless legs syndrome (RLS) History of DVT (deep vein thrombosis) Personal history of venous thrombosis and embolism Bronchiectasis without complication (HCC) Bronchiectasis without acute exacerbation Overactive bladder Hypertonicity of bladder Acquired hypothyroidism Unspecified hypothyroidism Hiatal hernia Diaphragmatic hernia without mention of obstruction or gangrene Essential hypertension Unspecified essential hypertension Mixed hyperlipidemia Obstructive sleep apnea syndrome Obstructive sleep apnea (adult) (pediatric) Gastroesophageal reflux disease, unspecified whether esophagitis present Hypokalemia due to excessive renal loss of potassium Iron deficiency anemia, unspecified iron deficiency anemia type History of malignant neoplasm of breast Personal history of malignant neoplasm of breast 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) Dementia, unspecified, without behavioral disturbance History of pulmonary embolism Personal history of pulmonary embolism Pulmonary HTN (HCC) Other chronic pulmonary heart diseases Tricuspid valve insufficiency, unspecified etiology Kyphosis, unspecified kyphosis type, unspecified spinal region History of transient ischemic attack (TIA) Transient ischemic attack (TIA), and cerebral 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 Depression, unspecified depression type Fine motor impairment- Primary Other specified conditions influencing health status Decreased activities of daily living (ADL) Lack of coordination Weakness Other malaise and fatigue [facility] Diagnosis Pre-operative examination- Primary Preoperative examination, unspecified 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) Dementia, unspecified, without behavioral disturbance MS (multiple sclerosis) (HCC) Multiple sclerosis History of complex partial epilepsy Personal history of other disorders of nervous system and sense organs Restless legs syndrome Restless legs syndrome (RLS) Atherosclerosis of [place] coronary artery of [place] heart with angina pectoris Essential hypertension Unspecified essential hypertension Mixed hyperlipidemia Parkinsonism, unspecified Parkinsonism type (HCC) Seizure disorder (HCC) Unspecified epilepsy without mention of intractable epilepsy History of DVT (deep vein thrombosis) Personal history of venous thrombosis and embolism Obstructive sleep apnea syndrome Obstructive sleep apnea (adult) (pediatric) Bronchiectasis without complication (HCC) Bronchiectasis without acute exacerbation Gastroesophageal reflux disease, unspecified whether esophagitis present Esophageal stricture Stricture and stenosis of esophagus Hypokalemia due to excessive renal loss of potassium Overactive bladder Hypertonicity of bladder Hypothyroidism, unspecified type History of malignant neoplasm of breast Personal history of malignant neoplasm of breast Bilateral leg edema Edema Osteoporosis, unspecified osteoporosis type, unspecified pathological fracture presence Multiple falls Personal history of fall Pulmonary embolism, other, unspecified chronicity, unspecified whether acute cor pulmonale present (HCC) Preoperative examination- Primary Preoperative examination, unspecified Coronary artery disease due to lipid rich plaque Other chronic pain Hypoglycemia Hypoglycemia, unspecified History of complex partial epilepsy Personal history of other disorders of nervous system and sense organs Restless legs syndrome Restless legs syndrome (RLS) History of DVT (deep vein thrombosis) Personal history of venous thrombosis and embolism Bronchiectasis without complication (HCC) Bronchiectasis without acute exacerbation Overactive bladder Hypertonicity of bladder Acquired hypothyroidism Unspecified hypothyroidism Hiatal hernia Diaphragmatic hernia without mention of obstruction or gangrene Essential hypertension Unspecified essential hypertension Mixed hyperlipidemia Obstructive sleep apnea syndrome Obstructive sleep apnea (adult) (pediatric) Gastroesophageal reflux disease, unspecified whether esophagitis present Hypokalemia due to excessive renal loss of potassium Iron deficiency anemia, unspecified iron deficiency anemia type History of malignant neoplasm of breast Personal history of malignant neoplasm of breast 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) Dementia, unspecified, without behavioral disturbance History of pulmonary embolism Personal history of pulmonary embolism Pulmonary HTN (HCC) Other chronic pulmonary heart diseases Tricuspid valve insufficiency, unspecified etiology Kyphosis, unspecified kyphosis type, unspecified spinal region History of transient ischemic attack (TIA) Transient ischemic attack (TIA), and cerebral 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 Depression, unspecified depression type Nausea Nausea alone [facility] Diagnosis Pre-operative examination- Primary Preoperative examination, unspecified 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) Dementia, unspecified, without behavioral disturbance MS (multiple sclerosis) (HCC) Multiple sclerosis History of complex partial epilepsy Personal history of other disorders of nervous system and sense organs Restless legs syndrome Restless legs syndrome (RLS) Atherosclerosis of [place] coronary artery of [place] heart with angina pectoris Essential hypertension Unspecified essential hypertension Mixed hyperlipidemia Parkinsonism, unspecified Parkinsonism type (HCC) Seizure disorder (HCC) Unspecified epilepsy without mention of intractable epilepsy History of DVT (deep vein thrombosis) Personal history of venous thrombosis and embolism Obstructive sleep apnea syndrome Obstructive sleep apnea (adult) (pediatric) Bronchiectasis without complication (HCC) Bronchiectasis without acute exacerbation Gastroesophageal reflux disease, unspecified whether esophagitis present Esophageal stricture Stricture and stenosis of esophagus Hypokalemia due to excessive renal loss of potassium Overactive bladder Hypertonicity of bladder Hypothyroidism, unspecified type History of malignant neoplasm of breast Personal history of malignant neoplasm of breast Bilateral leg edema Edema Osteoporosis, unspecified osteoporosis type, unspecified pathological fracture presence Multiple falls Personal history of fall Pulmonary embolism, other, unspecified chronicity, unspecified whether acute cor pulmonale present (HCC) Preoperative examination- Primary Preoperative examination, unspecified Coronary artery disease due to lipid rich plaque Other chronic pain Hypoglycemia Hypoglycemia, unspecified History of complex partial epilepsy Personal history of other disorders of nervous system and sense organs Restless legs syndrome Restless legs syndrome (RLS) History of DVT (deep vein thrombosis) Personal history of venous thrombosis and embolism Bronchiectasis without complication (HCC) Bronchiectasis without acute exacerbation Overactive bladder Hypertonicity of bladder Acquired hypothyroidism Unspecified hypothyroidism Hiatal hernia Diaphragmatic hernia without mention of obstruction or gangrene Essential hypertension Unspecified essential hypertension Mixed hyperlipidemia Obstructive sleep apnea syndrome Obstructive sleep apnea (adult) (pediatric) Gastroesophageal reflux disease, unspecified whether esophagitis present Hypokalemia due to excessive renal loss of potassium Iron deficiency anemia, unspecified iron deficiency anemia type History of malignant neoplasm of breast Personal history of malignant neoplasm of breast 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) Dementia, unspecified, without behavioral disturbance History of pulmonary embolism Personal history of pulmonary embolism Pulmonary HTN (HCC) Other chronic pulmonary heart diseases Tricuspid valve insufficiency, unspecified etiology Kyphosis, unspecified kyphosis type, unspecified spinal region History of transient ischemic attack (TIA) Transient ischemic attack (TIA), and cerebral 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 Depression, unspecified depression type Fine motor impairment- Primary Other specified conditions influencing health status Decreased activities of daily living (ADL) Lack of coordination Weakness Other malaise and fatigue [facility] Diagnosis Pre-operative examination- Primary Preoperative examination, unspecified 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) Dementia, unspecified, without behavioral disturbance MS (multiple sclerosis) (HCC) Multiple sclerosis History of complex partial epilepsy Personal history of other disorders of nervous system and sense organs Restless legs syndrome Restless legs syndrome (RLS) Atherosclerosis of [place] coronary artery of [place] heart with angina pectoris Essential hypertension Unspecified essential hypertension Mixed hyperlipidemia Parkinsonism, unspecified Parkinsonism type (HCC) Seizure disorder (HCC) Unspecified epilepsy without mention of intractable epilepsy History of DVT (deep vein thrombosis) Personal history of venous thrombosis and embolism Obstructive sleep apnea syndrome Obstructive sleep apnea (adult) (pediatric) Bronchiectasis without complication (HCC) Bronchiectasis without acute exacerbation Gastroesophageal reflux disease, unspecified whether esophagitis present Esophageal stricture Stricture and stenosis of esophagus Hypokalemia due to excessive renal loss of potassium Overactive bladder Hypertonicity of bladder Hypothyroidism, unspecified type History of malignant neoplasm of breast Personal history of malignant neoplasm of breast Bilateral leg edema Edema Osteoporosis, unspecified osteoporosis type, unspecified pathological fracture presence Multiple falls Personal history of fall Pulmonary embolism, other, unspecified chronicity, unspecified whether acute cor pulmonale present (HCC) Preoperative examination- Primary Preoperative examination, unspecified Coronary artery disease due to lipid rich plaque Other chronic pain Hypoglycemia Hypoglycemia, unspecified History of complex partial epilepsy Personal history of other disorders of nervous system and sense organs Restless legs syndrome Restless legs syndrome (RLS) History of DVT (deep vein thrombosis) Personal history of venous thrombosis and embolism Bronchiectasis without complication (HCC) Bronchiectasis without acute exacerbation Overactive bladder Hypertonicity of bladder Acquired hypothyroidism Unspecified hypothyroidism Hiatal hernia Diaphragmatic hernia without mention of obstruction or gangrene Essential hypertension Unspecified essential hypertension Mixed hyperlipidemia Obstructive sleep apnea syndrome Obstructive sleep apnea (adult) (pediatric) Gastroesophageal reflux disease, unspecified whether esophagitis present Hypokalemia due to excessive renal loss of potassium Iron deficiency anemia, unspecified iron deficiency anemia type History of malignant neoplasm of breast Personal history of malignant neoplasm of breast 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) Dementia, unspecified, without behavioral disturbance History of pulmonary embolism Personal history of pulmonary embolism Pulmonary HTN (HCC) Other chronic pulmonary heart diseases Tricuspid valve insufficiency, unspecified etiology Kyphosis, unspecified kyphosis type, unspecified spinal region History of transient ischemic attack (TIA) Transient ischemic attack (TIA), and cerebral 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 Depression, unspecified depression type Generalized abdominal pain- Primary Abdominal pain, generalized Diarrhea, unspecified type [facility] Diagnosis Pre-operative examination- Primary Preoperative examination, unspecified 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) Dementia, unspecified, without behavioral disturbance MS (multiple sclerosis) (HCC) Multiple sclerosis History of complex partial epilepsy Personal history of other disorders of nervous system and sense organs Restless legs syndrome Restless legs syndrome (RLS) Atherosclerosis of [place] coronary artery of [place] heart with angina pectoris Essential hypertension Unspecified essential hypertension Mixed hyperlipidemia Parkinsonism, unspecified Parkinsonism type (HCC) Seizure disorder (HCC) Unspecified epilepsy without mention of intractable epilepsy History of DVT (deep vein thrombosis) Personal history of venous thrombosis and embolism Obstructive sleep apnea syndrome Obstructive sleep apnea (adult) (pediatric) Bronchiectasis without complication (HCC) Bronchiectasis without acute exacerbation Gastroesophageal reflux disease, unspecified whether esophagitis present Esophageal stricture Stricture and stenosis of esophagus Hypokalemia due to excessive renal loss of potassium Overactive bladder Hypertonicity of bladder Hypothyroidism, unspecified type History of malignant neoplasm of breast Personal history of malignant neoplasm of breast Bilateral leg edema Edema Osteoporosis, unspecified osteoporosis type, unspecified pathological fracture presence Multiple falls Personal history of fall Pulmonary embolism, other, unspecified chronicity, unspecified whether acute cor pulmonale present (HCC) Preoperative examination- Primary Preoperative examination, unspecified Coronary artery disease due to lipid rich plaque Other chronic pain Hypoglycemia Hypoglycemia, unspecified History of complex partial epilepsy Personal history of other disorders of nervous system and sense organs Restless legs syndrome Restless legs syndrome (RLS) History of DVT (deep vein thrombosis) Personal history of venous thrombosis and embolism Bronchiectasis without complication (HCC) Bronchiectasis without acute exacerbation Overactive bladder Hypertonicity of bladder Acquired hypothyroidism Unspecified hypothyroidism Hiatal hernia Diaphragmatic hernia without mention of obstruction or gangrene Essential hypertension Unspecified essential hypertension Mixed hyperlipidemia Obstructive sleep apnea syndrome Obstructive sleep apnea (adult) (pediatric) Gastroesophageal reflux disease, unspecified whether esophagitis present Hypokalemia due to excessive renal loss of potassium Iron deficiency anemia, unspecified iron deficiency anemia type History of malignant neoplasm of breast Personal history of malignant neoplasm of breast 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) Dementia, unspecified, without behavioral disturbance History of pulmonary embolism Personal history of pulmonary embolism Pulmonary HTN (HCC) Other chronic pulmonary heart diseases Tricuspid valve insufficiency, unspecified etiology Kyphosis, unspecified kyphosis type, unspecified spinal region History of transient ischemic attack (TIA) Transient ischemic attack (TIA), and cerebral 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 Depression, unspecified depression type Dilation of biliary tract- Primary Other specified disorders of biliary tract [facility] Pre-operative examination- Primary Preoperative examination, unspecified 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) Dementia, unspecified, without behavioral disturbance MS (multiple sclerosis) (HCC) Multiple sclerosis History of complex partial epilepsy Personal history of other disorders of nervous system and sense organs Restless legs syndrome Restless legs syndrome (RLS) Atherosclerosis of [place] coronary artery of [place] heart with angina pectoris Essential hypertension Unspecified essential hypertension Mixed hyperlipidemia Parkinsonism, unspecified Parkinsonism type (HCC) Seizure disorder (HCC) Unspecified epilepsy without mention of intractable epilepsy History of DVT (deep vein thrombosis) Personal history of venous thrombosis and embolism Obstructive sleep apnea syndrome Obstructive sleep apnea (adult) (pediatric) Bronchiectasis without complication (HCC) Bronchiectasis without acute exacerbation Gastroesophageal reflux disease, unspecified whether esophagitis present Esophageal stricture Stricture and stenosis of esophagus Hypokalemia due to excessive renal loss of potassium Overactive bladder Hypertonicity of bladder Hypothyroidism, unspecified type History of malignant neoplasm of breast Personal history of malignant neoplasm of breast Bilateral leg edema Edema Osteoporosis, unspecified osteoporosis type, unspecified pathological fracture presence Multiple falls Personal history of fall Pulmonary embolism, other, unspecified chronicity, unspecified whether acute cor pulmonale present (HCC) Preoperative examination- Primary Preoperative examination, unspecified Coronary artery disease due to lipid rich plaque Other chronic pain Hypoglycemia Hypoglycemia, unspecified History of complex partial epilepsy Personal history of other disorders of nervous system and sense organs Restless legs syndrome Restless legs syndrome (RLS) History of DVT (deep vein thrombosis) Personal history of venous thrombosis and embolism Bronchiectasis without complication (HCC) Bronchiectasis without acute exacerbation Overactive bladder Hypertonicity of bladder Acquired hypothyroidism Unspecified hypothyroidism Hiatal hernia Diaphragmatic hernia without mention of obstruction or gangrene Essential hypertension Unspecified essential hypertension Mixed hyperlipidemia Obstructive sleep apnea syndrome Obstructive sleep apnea (adult) (pediatric) Gastroesophageal reflux disease, unspecified whether esophagitis present Hypokalemia due to excessive renal loss of potassium Iron deficiency anemia, unspecified iron deficiency anemia type History of malignant neoplasm of breast Personal history of malignant neoplasm of breast 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) Dementia, unspecified, without behavioral disturbance History of pulmonary embolism Personal history of pulmonary embolism Pulmonary HTN (HCC) Other chronic pulmonary heart diseases Tricuspid valve insufficiency, unspecified etiology Kyphosis, unspecified kyphosis type, unspecified spinal region History of transient ischemic attack (TIA) Transient ischemic attack (TIA), and cerebral 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 Depression, unspecified depression type Fine motor impairment- Primary Other specified conditions influencing health status Weakness Other malaise and fatigue Lack of coordination [facility] Diagnosis Pre-operative examination- Primary Preoperative examination, unspecified 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) Dementia, unspecified, without behavioral disturbance MS (multiple sclerosis) (HCC) Multiple sclerosis History of complex partial epilepsy Personal history of other disorders of nervous system and sense organs Restless legs syndrome Restless legs syndrome (RLS) Atherosclerosis of [place] coronary artery of [place] heart with angina pectoris Essential hypertension Unspecified essential hypertension Mixed hyperlipidemia Parkinsonism, unspecified Parkinsonism type (HCC) Seizure disorder (HCC) Unspecified epilepsy without mention of intractable epilepsy History of DVT (deep vein thrombosis) Personal history of venous thrombosis and embolism Obstructive sleep apnea syndrome Obstructive sleep apnea (adult) (pediatric) Bronchiectasis without complication (HCC) Bronchiectasis without acute exacerbation Gastroesophageal reflux disease, unspecified whether esophagitis present Esophageal stricture Stricture and stenosis of esophagus Hypokalemia due to excessive renal loss of potassium Overactive bladder Hypertonicity of bladder Hypothyroidism, unspecified type History of malignant neoplasm of breast Personal history of malignant neoplasm of breast Bilateral leg edema Edema Osteoporosis, unspecified osteoporosis type, unspecified pathological fracture presence Multiple falls Personal history of fall Pulmonary embolism, other, unspecified chronicity, unspecified whether acute cor pulmonale present (HCC) Preoperative examination- Primary Preoperative examination, unspecified Coronary artery disease due to lipid rich plaque Other chronic pain Hypoglycemia Hypoglycemia, unspecified History of complex partial epilepsy Personal history of other disorders of nervous system and sense organs Restless legs syndrome Restless legs syndrome (RLS) History of DVT (deep vein thrombosis) Personal history of venous thrombosis and embolism Bronchiectasis without complication (HCC) Bronchiectasis without acute exacerbation Overactive bladder Hypertonicity of bladder Acquired hypothyroidism Unspecified hypothyroidism Hiatal hernia Diaphragmatic hernia without mention of obstruction or gangrene Essential hypertension Unspecified essential hypertension Mixed hyperlipidemia Obstructive sleep apnea syndrome Obstructive sleep apnea (adult) (pediatric) Gastroesophageal reflux disease, unspecified whether esophagitis present Hypokalemia due to excessive renal loss of potassium Iron deficiency anemia, unspecified iron deficiency anemia type History of malignant neoplasm of breast Personal history of malignant neoplasm of breast 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) Dementia, unspecified, without behavioral disturbance History of pulmonary embolism Personal history of pulmonary embolism Pulmonary HTN (HCC) Other chronic pulmonary heart diseases Tricuspid valve insufficiency, unspecified etiology Kyphosis, unspecified kyphosis type, unspecified spinal region History of transient ischemic attack (TIA) Transient ischemic attack (TIA), and cerebral 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 Depression, unspecified depression type Fine motor impairment- Primary Other specified conditions influencing health status Weakness Other malaise and fatigue Lack of coordination Decreased activities of daily living (ADL) [facility] Diagnosis Pre-operative examination- Primary Preoperative examination, unspecified 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) Dementia, unspecified, without behavioral disturbance MS (multiple sclerosis) (HCC) Multiple sclerosis History of complex partial epilepsy Personal history of other disorders of nervous system and sense organs Restless legs syndrome Restless legs syndrome (RLS) Atherosclerosis of [place] coronary artery of [place] heart with angina pectoris Essential hypertension Unspecified essential hypertension Mixed hyperlipidemia Parkinsonism, unspecified Parkinsonism type (HCC) Seizure disorder (HCC) Unspecified epilepsy without mention of intractable epilepsy History of DVT (deep vein thrombosis) Personal history of venous thrombosis and embolism Obstructive sleep apnea syndrome Obstructive sleep apnea (adult) (pediatric) Bronchiectasis without complication (HCC) Bronchiectasis without acute exacerbation Gastroesophageal reflux disease, unspecified whether esophagitis present Esophageal stricture Stricture and stenosis of esophagus Hypokalemia due to excessive renal loss of potassium Overactive bladder Hypertonicity of bladder Hypothyroidism, unspecified type History of malignant neoplasm of breast Personal history of malignant neoplasm of breast Bilateral leg edema Edema Osteoporosis, unspecified osteoporosis type, unspecified pathological fracture presence Multiple falls Personal history of fall Pulmonary embolism, other, unspecified chronicity, unspecified whether acute cor pulmonale present (HCC) Preoperative examination- Primary Preoperative examination, unspecified Coronary artery disease due to lipid rich plaque Other chronic pain Hypoglycemia Hypoglycemia, unspecified History of complex partial epilepsy Personal history of other disorders of nervous system and sense organs Restless legs syndrome Restless legs syndrome (RLS) History of DVT (deep vein thrombosis) Personal history of venous thrombosis and embolism Bronchiectasis without complication (HCC) Bronchiectasis without acute exacerbation Overactive bladder Hypertonicity of bladder Acquired hypothyroidism Unspecified hypothyroidism Hiatal hernia Diaphragmatic hernia without mention of obstruction or gangrene Essential hypertension Unspecified essential hypertension Mixed hyperlipidemia Obstructive sleep apnea syndrome Obstructive sleep apnea (adult) (pediatric) Gastroesophageal reflux disease, unspecified whether esophagitis present Hypokalemia due to excessive renal loss of potassium Iron deficiency anemia, unspecified iron deficiency anemia type History of malignant neoplasm of breast Personal history of malignant neoplasm of breast 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) Dementia, unspecified, without behavioral disturbance History of pulmonary embolism Personal history of pulmonary embolism Pulmonary HTN (HCC) Other chronic pulmonary heart diseases Tricuspid valve insufficiency, unspecified etiology Kyphosis, unspecified kyphosis type, unspecified spinal region History of transient ischemic attack (TIA) Transient ischemic attack (TIA), and cerebral 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 Depression, unspecified depression type Hiatal hernia- Primary Diaphragmatic hernia without mention of obstruction or gangrene [facility] Diagnosis Pre-operative examination- Primary Preoperative examination, unspecified 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) Dementia, unspecified, without behavioral disturbance MS (multiple sclerosis) (HCC) Multiple sclerosis History of complex partial epilepsy Personal history of other disorders of nervous system and sense organs Restless legs syndrome Restless legs syndrome (RLS) Atherosclerosis of [place] coronary artery of [place] heart with angina pectoris Essential hypertension Unspecified essential hypertension Mixed hyperlipidemia Parkinsonism, unspecified Parkinsonism type (HCC) Seizure disorder (HCC) Unspecified epilepsy without mention of intractable epilepsy History of DVT (deep vein thrombosis) Personal history of venous thrombosis and embolism Obstructive sleep apnea syndrome Obstructive sleep apnea (adult) (pediatric) Bronchiectasis without complication (HCC) Bronchiectasis without acute exacerbation Gastroesophageal reflux disease, unspecified whether esophagitis present Esophageal stricture Stricture and stenosis of esophagus Hypokalemia due to excessive renal loss of potassium Overactive bladder Hypertonicity of bladder Hypothyroidism, unspecified type History of malignant neoplasm of breast Personal history of malignant neoplasm of breast Bilateral leg edema Edema Osteoporosis, unspecified osteoporosis type, unspecified pathological fracture presence Multiple falls Personal history of fall Pulmonary embolism, other, unspecified chronicity, unspecified whether acute cor pulmonale present (HCC) Preoperative examination- Primary Preoperative examination, unspecified Coronary artery disease due to lipid rich plaque Other chronic pain Hypoglycemia Hypoglycemia, unspecified History of complex partial epilepsy Personal history of other disorders of nervous system and sense organs Restless legs syndrome Restless legs syndrome (RLS) History of DVT (deep vein thrombosis) Personal history of venous thrombosis and embolism Bronchiectasis without complication (HCC) Bronchiectasis without acute exacerbation Overactive bladder Hypertonicity of bladder Acquired hypothyroidism Unspecified hypothyroidism Hiatal hernia Diaphragmatic hernia without mention of obstruction or gangrene Essential hypertension Unspecified essential hypertension Mixed hyperlipidemia Obstructive sleep apnea syndrome Obstructive sleep apnea (adult) (pediatric) Gastroesophageal reflux disease, unspecified whether esophagitis present Hypokalemia due to excessive renal loss of potassium Iron deficiency anemia, unspecified iron deficiency anemia type History of malignant neoplasm of breast Personal history of malignant neoplasm of breast 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) Dementia, unspecified, without behavioral disturbance History of pulmonary embolism Personal history of pulmonary embolism Pulmonary HTN (HCC) Other chronic pulmonary heart diseases Tricuspid valve insufficiency, unspecified etiology Kyphosis, unspecified kyphosis type, unspecified spinal region History of transient ischemic attack (TIA) Transient ischemic attack (TIA), and cerebral 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 Depression, unspecified depression type Skin tear of right forearm without complication, initial encounter- Primary [facility]* Diagnosis Pre-operative examination- Primary Preoperative examination, unspecified 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) Dementia, unspecified, without behavioral disturbance MS (multiple sclerosis) (HCC) Multiple sclerosis History of complex partial epilepsy Personal history of other disorders of nervous system and sense organs Restless legs syndrome Restless legs syndrome (RLS) Atherosclerosis of [place] coronary artery of [place] heart with angina pectoris Essential hypertension Unspecified essential hypertension Mixed hyperlipidemia Parkinsonism, unspecified Parkinsonism type (HCC) Seizure disorder (HCC) Unspecified epilepsy without mention of intractable epilepsy History of DVT (deep vein thrombosis) Personal history of venous thrombosis and embolism Obstructive sleep apnea syndrome Obstructive sleep apnea (adult) (pediatric) Bronchiectasis without complication (HCC) Bronchiectasis without acute exacerbation Gastroesophageal reflux disease, unspecified whether esophagitis present Esophageal stricture Stricture and stenosis of esophagus Hypokalemia due to excessive renal loss of potassium Overactive bladder Hypertonicity of bladder Hypothyroidism, unspecified type History of malignant neoplasm of breast Personal history of malignant neoplasm of breast Bilateral leg edema Edema Osteoporosis, unspecified osteoporosis type, unspecified pathological fracture presence Multiple falls Personal history of fall Pulmonary embolism, other, unspecified chronicity, unspecified whether acute cor pulmonale present (HCC) Preoperative examination- Primary Preoperative examination, unspecified Coronary artery disease due to lipid rich plaque Other chronic pain Hypoglycemia Hypoglycemia, unspecified History of complex partial epilepsy Personal history of other disorders of nervous system and sense organs Restless legs syndrome Restless legs syndrome (RLS) History of DVT (deep vein thrombosis) Personal history of venous thrombosis and embolism Bronchiectasis without complication (HCC) Bronchiectasis without acute exacerbation Overactive bladder Hypertonicity of bladder Acquired hypothyroidism Unspecified hypothyroidism Hiatal hernia Diaphragmatic hernia without mention of obstruction or gangrene Essential hypertension Unspecified essential hypertension Mixed hyperlipidemia Obstructive sleep apnea syndrome Obstructive sleep apnea (adult) (pediatric) Gastroesophageal reflux disease, unspecified whether esophagitis present Hypokalemia due to excessive renal loss of potassium Iron deficiency anemia, unspecified iron deficiency anemia type History of malignant neoplasm of breast Personal history of malignant neoplasm of breast 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) Dementia, unspecified, without behavioral disturbance History of pulmonary embolism Personal history of pulmonary embolism Pulmonary HTN (HCC) Other chronic pulmonary heart diseases Tricuspid valve insufficiency, unspecified etiology Kyphosis, unspecified kyphosis type, unspecified spinal region History of transient ischemic attack (TIA) Transient ischemic attack (TIA), and cerebral 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 Depression, unspecified depression type Coronary stent patent- Primary Mixed hyperlipidemia Essential hypertension Unspecified essential hypertension Pulmonary HTN (HCC) Other chronic pulmonary heart diseases Nonrheumatic tricuspid valve regurgitation Tricuspid valve disorders, specified as nonrheumatic Carotid bruit, unspecified laterality Obstructive sleep apnea syndrome Obstructive sleep apnea (adult) (pediatric) Acquired hypothyroidism Unspecified hypothyroidism Bilateral leg edema Edema History of pulmonary embolism Personal history of pulmonary embolism History of DVT (deep vein thrombosis) Personal history of venous thrombosis and embolism History of transient ischemic attack (TIA) Transient ischemic attack (TIA), and cerebral 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 Abnormality of gait [facility] Diagnosis Pre-operative examination- Primary Preoperative examination, unspecified 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) Dementia, unspecified, without behavioral disturbance MS (multiple sclerosis) (HCC) Multiple sclerosis History of complex partial epilepsy Personal history of other disorders of nervous system and sense organs Restless legs syndrome Restless legs syndrome (RLS) Atherosclerosis of [place] coronary artery of [place] heart with angina pectoris Essential hypertension Unspecified essential hypertension Mixed hyperlipidemia Parkinsonism, unspecified Parkinsonism type (HCC) Seizure disorder (HCC) Unspecified epilepsy without mention of intractable epilepsy History of DVT (deep vein thrombosis) Personal history of venous thrombosis and embolism Obstructive sleep apnea syndrome Obstructive sleep apnea (adult) (pediatric) Bronchiectasis without complication (HCC) Bronchiectasis without acute exacerbation Gastroesophageal reflux disease, unspecified whether esophagitis present Esophageal stricture Stricture and stenosis of esophagus Hypokalemia due to excessive renal loss of potassium Overactive bladder Hypertonicity of bladder Hypothyroidism, unspecified type History of malignant neoplasm of breast Personal history of malignant neoplasm of breast Bilateral leg edema Edema Osteoporosis, unspecified osteoporosis type, unspecified pathological fracture presence Multiple falls Personal history of fall Pulmonary embolism, other, unspecified chronicity, unspecified whether acute cor pulmonale present (HCC) Preoperative examination- Primary Preoperative examination, unspecified Coronary artery disease due to lipid rich plaque Other chronic pain Hypoglycemia Hypoglycemia, unspecified History of complex partial epilepsy Personal history of other disorders of nervous system and sense organs Restless legs syndrome Restless legs syndrome (RLS) History of DVT (deep vein thrombosis) Personal history of venous thrombosis and embolism Bronchiectasis without complication (HCC) Bronchiectasis without acute exacerbation Overactive bladder Hypertonicity of bladder Acquired hypothyroidism Unspecified hypothyroidism Hiatal hernia Diaphragmatic hernia without mention of obstruction or gangrene Essential hypertension Unspecified essential hypertension Mixed hyperlipidemia Obstructive sleep apnea syndrome Obstructive sleep apnea (adult) (pediatric) Gastroesophageal reflux disease, unspecified whether esophagitis present Hypokalemia due to excessive renal loss of potassium Iron deficiency anemia, unspecified iron deficiency anemia type History of malignant neoplasm of breast Personal history of malignant neoplasm of breast 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) Dementia, unspecified, without behavioral disturbance History of pulmonary embolism Personal history of pulmonary embolism Pulmonary HTN (HCC) Other chronic pulmonary heart diseases Tricuspid valve insufficiency, unspecified etiology Kyphosis, unspecified kyphosis type, unspecified spinal region History of transient ischemic attack (TIA) Transient ischemic attack (TIA), and cerebral 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 Depression, unspecified depression type 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, psychotic disturbance, mood disturbance, or anxiety (HCC)- Primary Physical deconditioning Debility, unspecified Gait instability Abnormality of gait Fine motor impairment Other specified conditions influencing health status Dizziness Dizziness and giddiness Cognitive communication deficit Idiopathic peripheral neuropathy Unspecified hereditary and idiopathic peripheral neuropathy Restless legs syndrome Restless legs syndrome (RLS) documented in this encounter [facility] Discharge instructions Additional Instructions 5 sutures were placed in your scalp to stop the bleeding from the laceration. The sutures will need to be removed in 10 to 14 days. Please see your family doctor or return to the ER for suture removal. Please return for repeat evaluation if he have any further concerns [facility] Work Phone: Reason for referral (narrative)* Outpatient Procedure (Routine) - New Request Specialty Diagnoses / Procedures Referred By Contac t Referred To [facility] Diagnoses H/O acute myocardial infarction Cardiomyopathy, unspecified type (HCC) Pre-op evaluation Procedures ECHO ECHO TTHRC R-T 2D W/WOM-MODE COMPL SPEC&COLR D Anila De Paz MD [address] [place] [id number] [facility] [place] [address] [place] [address] Referral ID Status Reason Start Date Expiration Date Visits Requested Visits Authorized [id number] New Request Auto-Generat ed Referral 06/18/2024 06/18/2025 1 1 * Consult, Test, Treat (Routine) - Authorized Specialty Diagnoses / Procedures Referred By Vivienne t Referred To Contact Cardiology Diagnoses H/O acute myocardial infarction Cardiomyopathy, unspecified type (HCC) Pre-op evaluation Procedures CONSULT TO CARDIOLOGY OFFICE/OUTPATIENT [facility] 60 MINUTES Anila De Paz MD [address] [place] [address] Referral ID Status Reason Start Date Expiration Date Visits Requested Visits Authorized [id number] Authorized PCP Requested Referral 06/18/2024 06/18/2025 1 1 * Consult, Test, Treat (Routine) - Authorized Specialty Diagnoses / Procedures Referred By Vivienne t Referred To Contact Internal Medicine Diagnoses Pre-op evaluation Encounter to establish care Procedures CONSULT TO INTERNAL MEDICINE OFFICE/OUTPATIENT [facility] 60 MINUTES Anila De Paz MD [address] [place] [address] Referral ID Status Reason Start Date Expiration Date Visits Requested Visits Authorized [id number] Authorized PCP Requested Referral 06/18/2024 06/18/2025 1 1 [facility] for referral (narrative)* Outpatient Procedure (Routine) - Closed Specialty Diagnoses / Procedures Referred By Vivienne hunt Referred To Contact [facility] Diagnoses Hiatal hernia Procedures EGD DIAGNOSTIC ESOPHAGOGASTRODUODENOSC OPY TRANSORAL DIAGNOSTIC Anila De Paz MD [address] [place] [address] [facility] [place] [address] [place] [address] Referral ID Status Reason Start Date Expiration Date V isits Requested Visits Authorized [id number] Closed Auto-Generate d Referral 06/18/2024 06/18/2025 1 1 [facility] for referral (narrative)* Outpatient Procedure (Routine) - Authorized Specialty Diagnoses / Procedures Referred By Vivienne t Referred To Contact [facility] Diagnoses Carotid bruit, unspecified laterality Procedures US CAROTID ARTERIES [facility] DUPLEX SCAN EXTRACRANIAL [place] [address] [place] [address] [address] Referral ID Status Reason Start Date Expiration Date Visits Requested Visits Authorized [id number] Authorized Auto-Generat ed Referral 4 08/03/2025 1 1 * Outpatient Procedure (Routine) - New Request Specialty Diagnoses / Procedures Referred By Contac t Referred To Contact [facility] [place] Diagnoses H/O acute myocardial infarction Procedures ECG COMPLETE ECG ROUTINE ECG W/LEAST 12 LDS W/I&[place] [address] [place] [address] [address] Referral ID Status Reason Start Date Expiration Date Visits Requested Visits Authorized [id number] New Request Auto-Generat ed Referral 4 08/03/2025 1 1 [facility] for referral (narrative)* Outpatient Procedure (Routine) - New Request Specialty Diagnoses / Procedures Referred By Contac t Referred To Contact [facility] Diagnoses Neuropathy Procedures EMG(NEURO/NI) NERVE CONDUCTION STUDIES 9-10 STUDIES Denice Jacobs PA-C [address] [place] [id number] [facility] [place] [address] [place] [id number] Referral ID Status Reason Start Date Expiration Date Visits Requested Visits Authorized [id number] New Request Auto-Generat ed Referral 4 08/06/2025 1 1 [facility] Outpatient Procedure (Routine) - New Request Specialty Diagnoses / Procedures Referred By Contac t Referred To [facility] Diagnoses Dilated pancreatic duct Procedures EGD - THERAPEUTIC, EUS, OR TUBE INTERVENTIONS EDG US EXAM SURGICAL ALTER STOM DUODENUM/JEJUNUM Susan Srinivasan MD [address] [facility]. Desk [address] [place] [address] [place] [phone] Referral ID Status Reason Start Date Expiration Date Visits Requested Visits Authorized [id number] New Request Auto-Generat ed Referral 09/08/2024 09/08/2025 1 1 [facility] for referral (narrative)* Outpatient Procedure (Routine) - Closed Specialty Diagnoses / Procedures Referred By [facility] Referred To [facility] Diagnoses Choledocholithiasis Procedures ERCP ERCP REMOVE CALCULI/DEBRIS BILIARY/[place] [address] [place], [place] [phone] [place] [phone] Referral ID Status Reason Start Date Expiration Date V isits Requested Visits Authorized [id number] Closed Auto-Generate d Referral 09/13/2024 09/13/2025 1 1 [facility] for referral (narrative)* Outpatient Procedure (Routine) - Closed Specialty Diagnoses / Procedures Referred By [facility] Referred To [facility] Diagnoses Choledocholithiasis Procedures ERCP ERCP REMOVE CALCULI/DEBRIS BILIARY/PANCREAS DUCT Alisa Haile MD [address] [facility] [place] [address] [address] Referral ID Status Reason Start Date Expiration Date V isits Requested Visits Authorized [id number] Closed Auto-Generate d Referral 09/13/2024 09/13/2025 1 1 * Outpatient Procedure (Routine) - Closed Specialty Diagnoses / Procedures Referred By Contac t Referred To Contact [facility] Diagnoses Dilated pancreatic duct Procedures EGD - THERAPEUTIC, EUS, OR TUBE INTERVENTIONS EDG US EXAM SURGICAL ALTER STOM DUODENUM/JEJUNUM Susan Srinivasan MD [address]. Desk [address] [place] [address] [place] [phone] Referral ID Status Reason Start Date Expiration Date V isits Requested Visits Authorized [id number] Closed Auto-Generate d Referral 09/08/2024 09/08/2025 1 1 [facility] for referral (narrative)No reason for referral information availableWSumma [facility] Work Phone: Reason for visit Narrative* Outpatient Procedure (Routine) - Closed Specialty Diagnoses / Procedures Referred By Contac t Referred To Contact [facility] Diagnoses Hiatal hernia Procedures EGD DIAGNOSTIC ESOPHAGOGASTRODUODENOSC OPY TRANSORAL DIAGNOSTIC Anila De Paz MD [address] [place] [id number] [place] [phone] Referral ID Status Reason Start Date Expiration Date V isits Requested Visits Authorized [id number] Closed Auto-Generate d Referral 06/18/2024 06/18/2025 1 1 [facility] for visit Narrative* Outpatient Procedure (Routine) - Closed Specialty Diagnoses / Procedures Referred By Contac t Referred To Contact [facility] Diagnoses Dilated pancreatic duct Procedures EGD - THERAPEUTIC, EUS, OR TUBE INTERVENTIONS EDG US EXAM SURGICAL ALTER STOM DUODENUM/JEJUNUM Susan Srinivasan MD [address] More[address]. Desk [address] [address] Referral ID Status Reason Start Date Expiration Date V isits Requested Visits Authorized [id number] Closed Auto-Generate d Referral 09/08/2024 09/08/2025 [facility] (Routine) - Closed Specialty Diagnoses / Procedures Referred By Contac t Referred To Contact [facility] Diagnoses Nausea Procedures CT ABD/PEL W IVCON CT ABD & PELVIS W/CONTRAST Anila De Paz MD [address] [place] [address] Phone: tel: fax: [place] [address] Referral ID Status Reason Start Date Expiration Date V isits Requested Visits Authorized [id number] Closed Auto-Generate d Referral 11/02/2024 12/02/2025 1 1 [facility] Chief Complaint and Reason for Visit Chief Complaint 3 M FU HISTORY OF PATHOLOGICAL VERTEBRAL FRACTURE fall FAILURE TO THRIVE urinary retention FAILURE TO THRIVE FAILURE TO THRIVE FAILURE TO THRIVE DEBILITY DEBILITY DEBILITY DEBILITY DEBILITY 3 M FU BLOODWORK Other pulmonary embolism without acute cor pulmona PE Reason for Visit Bronchiectasis Fall UTI (urinary tract infection) Weakness Debility Depression Hyperlipidemia Hypothyroidism Overactive bladder Restless leg syndrome Seizure disorder Vascular dementia Compression fracture of thoracic spine, non-traumatic Costochondritis COVID-19 Osteoporosis Pulmonary embolism Right rib fracture Transient ischemic attack Urinary tract infection Debility Bronchiectasis Hiatal hernia ERIS (obstructive sleep apnea) COVID-19 Chief Complaint 3 M FU BLOODWORK Other pulmonary embolism without acute cor pulmona PE 2 M FU WEAKNESS. RX HERE COPD Reason for Visit Bronchiectasis Hiatal hernia ERIS (obstructive sleep apnea) COVID-19 Bronchiectasis Shortness of breath on exertion COVID-19 Chief Complaint 3 M FU BLOODWORK Other pulmonary embolism without acute cor pulmona PE 2 M FU COPD WEAKNESS. RX HERE TACHYCARDIA Reason for Visit Bronchiectasis Hiatal hernia ERIS (obstructive sleep apnea) COVID-19 Bronchiectasis Shortness of breath on exertion COVID-19 Chief Complaint 3 M FU BLOODWORK Other pulmonary embolism without acute cor pulmona PE 2 M FU COPD TACHYCARDIA WEAKNESS. RX HERE Reason for Visit Bronchiectasis Hiatal hernia ERIS (obstructive sleep apnea) COVID-19 Bronchiectasis Shortness of breath on exertion COVID-19 Chief Complaint BLOODWORK Other pulmonary embolism without acute cor pulmona PE 2 M FU COPD TACHYCARDIA WEAKNESS. RX HERE Reason for Visit Bronchiectasis Shortness of breath on exertion COVID-19 Chief Complaint BLOODWORK Other pulmonary embolism without acute cor pulmona PE 2 M FU COPD TACHYCARDIA WEAKNESS. RX HERE head injury Reason for Visit Bronchiectasis Shortness of breath on exertion COVID-19 Chief Complaint head injury Amb Documentation Est Care, NPP given 4 M FU Adema in both legs, close to ankles 2 W FU SOB/SELF REF. 3 M FU 3 M FU CONGITIVE COMMUNICATION. RX HERE NON-PRODUCTIVE COUGH Amb Documentation ABD WALL PAIN head injury Reason for Visit Debility Falls frequently Hyperlipidemia Hypothyroidism Overactive bladder Gastroesophageal reflux disease ERIS (obstructive sleep apnea) Seizure disorder Encounter to establish care Bronchiectasis Hypoxemia ERIS (obstructive sleep apnea) Intermittent constipation Leg edema, left Varicose veins of both legs with edema Debility Lightheadedness Overactive bladder Atherosclerotic heart disease of [place] coronary artery without angina pectoris Essential hypertension Presence of stent in coronary artery Hyperlipidemia Bronchiectasis Hypoxemia Abdominal wall hernia Essential hypertension Restless leg syndrome Seizure disorder Acute bronchitis Chief Complaint 4 M FU Adema in both legs, close to ankles 2 W FU SOB/SELF REF. 3 M FU 3 M FU NON-PRODUCTIVE COUGH Amb Documentation ABD WALL PAIN head injury xray CONGITIVE COMMUNICATION. RX HERE VENTRAL HERNIA Reason for Visit Bronchiectasis Hypoxemia ERIS (obstructive sleep apnea) Intermittent constipation Leg edema, left Varicose veins of both legs with edema Debility Lightheadedness Overactive bladder Atherosclerotic heart disease of [place] coronary artery without angina pectoris Essential hypertension Presence of stent in coronary artery Hyperlipidemia Bronchiectasis Hypoxemia Abdominal wall hernia Essential hypertension Restless leg syndrome Seizure disorder Acute bronchitis Chief Complaint Adema in both legs, close to ankles 2 W FU SOB/SELF REF. 3 M FU 3 M FU NON-PRODUCTIVE COUGH Amb Documentation ABD WALL PAIN head injury xray VENTRAL HERNIA [facility] ER FU CONGITIVE COMMUNICATION. RX HERE Reason for Visit Intermittent constip ation Leg edema, left Varicose veins of both legs with edema Debility Lightheadedness Overactive bladder Atherosclerotic heart disease of [place] coronary artery without angina pectoris Essential hypertension Presence of stent in coronary artery Hyperlipidemia Bronchiectasis Hypoxemia Abdominal wall hernia Essential hypertension Restless leg syndrome Seizure disorder Acute bronchitis Right inguinal hernia Fall (on)(from) incline, subsequent encounter Visit for suture removal Chief Complaint SOB/SELF REF. 3 M FU 3 M FU NON-PRODUCTIVE COUGH Amb Documentation ABD WALL PAIN head injury xray VENTRAL HERNIA [facility] ER FU CONGITIVE COMMUNICATION. RX HERE Primary osteoarthritis, left shoulder CONGITIVE COMMUNICATION. RX HERE Reason for Visit 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 pectoris Essential hypertension Presence of stent in coronary artery Hyperlipidemia Bronchiectasis Hypoxemia Abdominal wall hernia Essential hypertension Restless leg syndrome Seizure disorder Acute bronchitis Right inguinal hernia Fall (on)(from) incline, subsequent encounter Visit for suture removal Chief Complaint SOB/SELF REF. 3 M FU 3 M FU NON-PRODUCTIVE COUGH Amb Documentation ABD WALL PAIN head injury xray VENTRAL HERNIA [facility] ER FU CONGITIVE COMMUNICATION. RX HERE Primary osteoarthritis, left shoulder CONGITIVE COMMUNICATION. RX HERE POST FALL LAST NIGHT/LEFT ARM PAIN/HIT HEAD EORDERS Reason for Visit 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 pectoris Essential hypertension Presence of stent in coronary artery Hyperlipidemia Bronchiectasis Hypoxemia Abdominal wall hernia Essential hypertension Restless leg syndrome Seizure disorder Acute bronchitis Right inguinal hernia Fall (on)(from) incline, subsequent encounter Visit for suture removal Contusion of left shoulder Contusion of left wrist Left elbow contusion Scalp contusion Chief Complaint 3 M FU 3 M FU NON-PRODUCTIVE COUGH Amb Documentation ABD WALL PAIN head injury xray VENTRAL HERNIA [facility] ER FU CONGITIVE COMMUNICATION. RX HERE Primary osteoarthritis, left shoulder POST FALL LAST NIGHT/LEFT ARM PAIN/HIT HEAD EORDERS CONGITIVE COMM,BALANCE,WEAKNESS RX HERE ELBOW Reason for Visit Bronchiectasis Hypoxemia Abdominal wall hernia Essential hypertension Restless leg syndrome Seizure disorder Acute bronchitis Right inguinal hernia Fall (on)(from) incline, subsequent encounter Visit for suture removal Contusion of left shoulder Contusion of left wrist Left elbow contusion Scalp contusion Chief Complaint Primary osteoarthrit is, left shoulder POST FALL LAST NIGHT/LEFT ARM PAIN/HIT HEAD EORDERS ELBOW 4 M FU COVID EXPOSURE/WANTS TEST COVID-19 INT LABS CONGITIVE COMM,BALANCE,WEAKNESS RX HERE Reason for Visit Contusion of left sh [place]ulder Contusion of left wrist Left elbow contusion Scalp contusion Atherosclerotic heart disease of [place] coronary artery without angina pectoris Debility Essential hypertension Falls frequently Hyperlipidemia Hypothyroidism Lightheadedness Overactive bladder Seizure disorder Vascular dementia Vitamin B 12 deficiency Vitamin D deficiency Contact with and (suspected) exposure to other viral communicable diseases Chief Complaint POST FALL LAST NIGHT /LEFT ARM PAIN/HIT HEAD EORDERS ELBOW 4 M FU COVID EXPOSURE/WANTS TEST COVID-19 INT LABS LEFT KNEE PAIN XRAY LLE PAIN STAT 6 M FU knee Pain 6 m fu LEFT BREAST MASS LUMP IN L BREAST CONGITIVE COMM,BALANCE,WEAKNESS RX HERE XRAY Reason for Visit Contusion of left sh [place]ulder Contusion of left wrist Left elbow contusion Scalp contusion Atherosclerotic heart disease of [place] coronary artery without angina pectoris Debility Essential hypertension Falls frequently Hyperlipidemia Hypothyroidism Lightheadedness Overactive bladder Seizure disorder Vascular dementia Vitamin B 12 deficiency Vitamin D deficiency Contact with and (suspected) exposure to other viral communicable diseases Pain of left lower extremity Bronchiectasis Hypoxemia ERIS (obstructive sleep apnea) Breast lump on left side at 1 o'clock position Left knee pain Restless leg syndrome Atherosclerotic heart disease of [place] coronary artery without angina pectoris Essential hypertension Lightheadedness Hyperlipidemia Mass of upper inner quadrant of left breast Chief Complaint INT LABS LEFT KNEE PAIN XRAY LLE PAIN STAT 6 M FU knee Pain 6 m fu LEFT BREAST MASS LUMP IN L BREAST XRAY POST FALL/BACK PAIN/SWELLING XRAY CONGITIVE COMM,BALANCE,WEAKNESS RX HERE 6 M FU ERIS LUMP IN MIDDLE OF CHEST NUMEROUS BEE STINGS/TOP OF THIGH/RIGHT LEG CONGITIVE COMM,BALANCE,WEAKNESS RX HERE RASH Reason for Visit Pain of left lower e xtremity Bronchiectasis Hypoxemia ERIS (obstructive sleep apnea) Breast lump on left side at 1 o'clock position Left knee pain Restless leg syndrome Atherosclerotic heart disease of [place] coronary artery without angina pectoris Essential hypertension Lightheadedness Hyperlipidemia Mass of upper inner quadrant of left breast Contusion of thoracic wall Lumbar contusion Atherosclerotic heart disease of [place] coronary artery without angina pectoris Cancer Essential hypertension Hyperlipidemia Hypothyroidism Mass of upper inner quadrant of left breast Presence of stent in coronary artery Right inguinal hernia Vitamin B 12 deficiency Gastroesophageal reflux disease ERIS (obstructive sleep apnea) Restless leg syndrome Sternal deformity Bee sting Chief Complaint 6 m fu LEFT BREAST MASS LUMP IN L BREAST XRAY POST FALL/BACK PAIN/SWELLING XRAY CONGITIVE COMM,BALANCE,WEAKNESS RX HERE 6 M FU ERIS LUMP IN MIDDLE OF CHEST NUMEROUS BEE STINGS/TOP OF THIGH/RIGHT LEG RASH 3 M FU E ORDERS CONGITIVE COMM,BALANCE,WEAKNESS RX HERE Reason for Visit 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 pectoris Essential hypertension Lightheadedness Hyperlipidemia Mass of upper inner quadrant of left breast Contusion of thoracic wall Lumbar contusion Atherosclerotic heart disease of [place] coronary artery without angina pectoris Cancer Essential hypertension Hyperlipidemia Hypothyroidism Mass of upper inner quadrant of left breast Presence of stent in coronary artery Right inguinal hernia Vitamin B 12 deficiency Gastroesophageal reflux disease ERIS (obstructive sleep apnea) Restless leg syndrome Sternal deformity Bee sting Bronchiectasis Hypoxemia Chief Complaint ERIS LUMP IN MIDDLE OF CHEST NUMEROUS BEE STINGS/TOP OF THIGH/RIGHT LEG RASH 3 M FU E ORDERS CONGITIVE COMM,BALANCE,WEAKNESS RX HERE 4 M FU Flu Shot DYSPNEA Reason for Visit Sternal deformity Bee sting Bronchiectasis Hypoxemia Atherosclerotic heart disease of [place] coronary artery without angina pectoris ALEXANDER (dyspnea on exertion) Hyperlipidemia Chief Complaint LUMP IN MIDDLE OF CH EST NUMEROUS BEE STINGS/TOP OF THIGH/RIGHT LEG RASH 3 M FU E ORDERS CONGITIVE COMM,BALANCE,WEAKNESS RX HERE 4 M FU Flu Shot DYSPNEA VISION LOSS Reason for Visit Sternal deformity Bee sting Bronchiectasis Hypoxemia Atherosclerotic heart disease of [place] coronary artery without angina pectoris ALEXANDER (dyspnea on exertion) Hyperlipidemia Chief Complaint NUMEROUS BEE STINGS/ TOP OF THIGH/RIGHT LEG RASH 3 M FU E ORDERS CONGITIVE COMM,BALANCE,WEAKNESS RX HERE 4 M FU Flu Shot DYSPNEA VISION LOSS LEFT BREAST LUMP FOLLOW UP Reason for Visit Bee sting Bronchiectasis Hypoxemia Atherosclerotic heart disease of [place] coronary artery without angina pectoris ALEXANDER (dyspnea on exertion) Hyperlipidemia Chief Complaint LEFT BREAST LUMP FOL LOW UP 6 M FU BACK BRACE RX HERE left hip issues 6 M FU EORDERS Reason for Visit 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 pectoris Debility Essential hypertension Falls frequently Hiatal hernia Hyperlipidemia Restless leg syndrome Right inguinal hernia Vascular dementia Difficulty swallowing Hiatal hernia Mass of upper inner quadrant of left breast Sternal deformity Osteoporosis Bronchiectasis Hypoxemia Chief Complaint 6 M FU BACK BRACE RX HERE left hip issues 6 M FU EORDERS 6 M FU Reason for Visit 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 pectoris Debility Essential hypertension Falls frequently Hiatal hernia Hyperlipidemia Restless leg syndrome Right inguinal hernia Vascular dementia Difficulty swallowing Hiatal hernia Mass of upper inner quadrant of left breast Sternal deformity Osteoporosis Bronchiectasis Hypoxemia Atherosclerotic heart disease of [place] coronary artery without angina pectoris Dizziness Hyperlipidemia Chief Complaint BACK BRACE RX HERE left hip issues 6 M FU EORDERS 6 M FU DIZZINESS Amb Documentation Reason for Visit Hiatal hernia Mass of upper inner quadrant of left breast Sternal deformity Osteoporosis Bronchiectasis Hypoxemia Atherosclerotic heart disease of [place] coronary artery without angina pectoris Dizziness Hyperlipidemia Chief Complaint Admit Date RIGHT KNEE July 05, 2024 1:18pm Surgery Clearance July 07, 2024 11:42am OSTEOARTHRITIS OF RIGHT KNEE. RX HERE No vember 2023 1:30pm RIGHT KNEE July 12, 2024 3:46pm RIGHT KNEE July 19, 2024 3 :39pm Room 2 July 19, 2024 4 :00pm fall September 18, 2024 8 :36am F/U Assisted Discharge September 1:03pm SCREENING October 18, 2024 1:23 pm 6 M FU October 22, 2024 2:11 pm Reason for Visit Admit Date Osteoarthritis of right knee July 052023 1:18pm Atherosclerotic heart diseas e of [place] coronary artery without angina pectoris July 07, 2024 11:42am Hiatal hernia July 07, 2024 11:42am Hyperlipidemia July 07, 2024 11:42am Hypothyroidism July 07, 2024 11:42am Presence of stent in coronary artery Nov ember 2023 11:42am Shortness of breath on exertion July 07, 2024 11:42am Vascular dementia July 07, 2024 11:42am aquired autoimmune encephalopathy Novemb er 2023 11:42am Bronchiectasis July 07, 2024 11:42am Difficulty swallowing July 07 11:42am Esophageal dysphagia July 07, 2024 11:42am Osteoporosis July 07, 2024 11:42am Osteoarthritis of right knee July 122023 3:46pm Left knee DJD July 19, 2024 3 :39pm Osteoarthritis of right knee July 3:39pm Depression October 14, 2024 1:03pm Falls frequently October 14, 2024 1:03pm Hiatal hernia October 14, 2024 1:03pm History of cholecystectomy September 1:03pm History of repair of hiatal hernia 2024 1:03pm Hypothyroidism October 14, 2024 1:03pm Seizure disorder October 14, 2024 1:03pm Difficulty swallowing October 14 1:03pm Kyphoscoliosis deformity of spine Februa 2024 1:03pm RSD (reflex sympathetic dystrophy) 2024 1:03pm Bronchiectasis October 22, 2024 2:11 pm Kyphoscoliosis deformity of spine October 22, 2024 2:11pm Chief Complaint Admit Date RIGHT KNEE July 19, 2024 3 :39pm Room 2 July 19, 2024 4 :00pm fall September 18, 2024 8 :36am F/U Assisted Discharge September 1:03pm SCREENING October 18, 2024 1:23 pm 6 M FU October 22, 2024 2:11 pm Reason for Visit Admit Date Left knee DJD July 19, 2024 3 :39pm Osteoarthritis of right knee July 3:39pm Depression October 14, 2024 1:03pm Falls frequently October 14, 2024 1:03pm Hiatal hernia October 14, 2024 1:03pm History of cholecystectomy September 1:03pm History of repair of hiatal hernia u [email or web address] 1:03pm Hypothyroidism October 14, 2024 1:03pm Seizure disorder October 14, 2024 1:03pm Difficulty swallowing October 14 1:03pm Kyphoscoliosis deformity of spine ua 2024 1:03pm RSD (reflex sympathetic dystrophy) u 2024 1:03pm Bronchiectasis October 22, 2024 2:11 pm Kyphoscoliosis deformity of spine October 22, 2024 2:11pm Chief Complaint Admit Date fall September 18, 2024 8 :36am F/U Assisted Discharge September 1:03pm SCREENING October 18, 2024 1:23 pm 6 M FU October 22, 2024 2:11 pm Reason for Visit Admit Date Depression October 14, 2024 1:03pm Falls frequently October 14, 2024 1:03pm Hiatal hernia October 14, 2024 1:03pm History of cholecystectomy September 1:03pm History of repair of hiatal hernia Febru gregory 2024 1:03pm Hypothyroidism October 14, 2024 1:03pm Seizure disorder October 14, 2024 1:03pm Difficulty swallowing October 14 1:03pm Kyphoscoliosis deformity of spine Februa ry 2024 1:03pm RSD (reflex sympathetic dystrophy) Febru gregory 2024 1:03pm Bronchiectasis October 22, 2024 2:11 pm Kyphoscoliosis deformity of spine October 22, 2024 2:11pm Family History No Family History Records Found Relationship Condition Age at Onset Recorded Date/T arun mother Cerebrovascular accident (CVA) Unknown father Myocardial infarction Unknown Relationship Condition Age at Onset Recorded Date/T arun mother Cerebrovascular accident (CVA) Unknown Arthritis Unknown father Myocardial infarction 40 Alcoholism Unknown Hypertension Unknown sister Anemia Unknown grandmother Disorder of intestine Unknown Osteoporosis Unknown Malignant neoplasm of ovary Unknown Advance Directives No Advanced Directives Records Found Advance Directive Response Recorded Date/ Time Name of Medical Power of Rental Sales Agent Delroy PURVIS hu sband September 01, 2021 6:35pm Name of Medical Power of Rental Sales Agent Delroy Craft e September 02, 2021 8:44pm Name of Medical Power of Rental Sales Agent Delroy September 05, 2021 12:39pm Living Will Yes October 05 6:26pm Power of Rental Sales Agent Yes October 05, 2021 6:26pm Advance Directive Response Recorded Date/ Time Living Will Yes October 05 6:26pm Power of Rental Sales Agent Yes October 05, 2021 6:26pm Advance Directive Response Recorded Date/ Time Name of Medical Power of Rental Sales Agent ? February 15, 2022 9:51am Living Will Yes February 15, 2022 9 :51am Power of Rental Sales Agent Yes February 15, 2022 9:51am Advance Directive Response Recorded Date/ Time Name of Medical Power of Rental Sales Agent ? February 15, 2022 9:51am Name of Medical Power of Rental Sales Agent delroy craft e- March 15, 2022 7:44pm Living Will Yes March 15, 2022 7:44pm Power of Rental Sales Agent Yes March 15 7:44pm Advance Directive Response Recorded Date/ Time Name of Medical Power of Rental Sales Agent delroy crafte- March 15, 2022 6:44pm Name of Medical Power of Rental Sales Agent delroy -- July 13, 2022 12:23am Living Will Yes July 13 12:23am Power of Rental Sales Agent Yes July 13, 2022 12:23am Advance Directive Response Recorded Date/ Time Name of Medical Power of Rental Sales Agent delroy --asia gilmore July 13, 2022 12:23am Living Will Yes July 13 12:23am Power of Rental Sales Agent Yes July 13, 2022 12:23am Advance Directive Response Recorded Date/ Time Name of Medical Power of Rental Sales Agent delroy --asia gilmore July 13, 2022 12:23am Name of Medical Power of Rental Sales Agent [facility] [[email or web address]TANYAD October 16, 2022 6:43pm Living Will Yes October 16, 2022 6:43pm Power of Rental Sales Agent Yes October 16 6:43pm Advance Directive Response Recorded Date/ Time Name of Medical Power of Rental Sales Agent [facility] [[email or web address]TANYAD October 16, 2022 7:43pm Living Will Yes October 16, 2022 7:43pm Power of Rental Sales Agent Yes October 16 7:43pm Advance Directive Response Recorded Date/ Time Living Will Yes January 20, 2023 8 :53am Power of Rental Sales Agent Yes January 20, 2023 8:53am Name of Medical Power of Rental Sales Agent [facility] [[email or web address]TANYAD October 16, 2022 7:43pm Advance Directive Response Recorded Date/ Time Living Will Yes January 20, 2023 8 :53am Power of Rental Sales Agent Yes January 20, 2023 8:53am Advance Directive Response Recorded Date/ Time Living Will Yes March 24, 2023 11:37am Power of Rental Sales Agent Yes March 24 11:37am Advance Directive Response Recorded Date/ Time Living Will Yes May 15, 2023 2:11pm Power of Rental Sales Agent Yes April 2:11pm Advance Directive Response Recorded Date/ Time Living Will Yes May 15, 2023 1:11pm Power of Rental Sales Agent Yes April 1:11pm Documents on File Type Date Recorded Patient Family Preservation Caseworker Expl anation Advance Directive(s) 08/06/2024 2:46 PM Documents on File Type Date Recorded Patient Family Preservation Caseworker Expl anation Advance Directive(s) 08/06/2024 2:46 PM Advance Directive Response Recorded Date/ Time Living Will Yes March 16, 2024 9:39am Power of Rental Sales Agent Yes March 16 9:39am Living Will Yes June 07 8:50am Power of Rental Sales Agent Yes June 07, 2024 8:50am Living Will Yes September 18 10:27am Power of Rental Sales Agent Yes September 18, 2024 10:27am Name of Medical Power of Rental Sales Agent September 18, 2024 10:27am Advance Directive Response Recorded Date/ Time Living Will Yes March 16, 2024 9:39am Do you have a Healthcare Power of Rental Sales Agent? Yes March 16, 2024 9:39am Living Will Yes September 18 10:27am Do you have a Healthcare Power of Rental Sales Agent? Yes September 18, 2024 10:27am Name of Medical Power of Rental Sales Agent September 18, 2024 10:27am Reason for Referral Specialty Diagnoses / Procedures Referred By Contac t Referred To Contact [facility] Diagnoses Dementia without behavioral disturbance, unspecified dementia type (HCC) Cognitive communication deficit Procedures CONSULT TO SPEECH THERAPY OFFICE/OUTPATIENT [facility] 60-74 MINUTES Laisha Lizarraga, DIRECTOR ORACLE RETAIL.RECEPTION CENTRE MANAGER [address] [place] [address] [facility] [place] [id number] [place] [address] Referral ID Status Reason Start Date Expiration Date Visits Requested Visits Authorized [id number] Authorized Auto-Generat ed Referral 04/11/2022 04/11/2023 99 99 Specialty Diagnoses / Procedures Referred By Contac t Referred To Contact MR IMAGING Diagnoses 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) Procedures MRI 3D POST PROCESSING 3D RENDERING W/INTERP&POSTPROC DIFF WORK STATION Laisha Lizraraga, DIRECTOR ORACLE RETAIL.RECEPTION CENTRE MANAGER [address] [place] [address] Mr Imaging Referral ID Status Reason Start Date Expiration Date Visits Requested Visits Authorized [id number] Authorized Auto-Generat ed Referral 11/13/2022 12/13/2023 1 1 Specialty Diagnoses / Procedures Referred By Contac t Referred To Contact MR IMAGING Diagnoses 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) Procedures MRI BRAIN W QUANT WO IVCON MRI BRAIN BRAIN STEM W/O CONTRAST MATERIAL Laisha Lizarraga, DIRECTOR ORACLE RETAIL.RECEPTION CENTRE MANAGER [address] [place] [id number] [facility] Referral ID Status Reason Start Date Expiration Date Visits Requested Visits Authorized [id number] Authorized Auto-Generat ed Referral 11/13/2022 12/13/2023 1 1 Specialty Diagnoses / Procedures Referred By Contac t Referred To Contact MR IMAGING Diagnoses 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) Procedures MRI 3D POST PROCESSING 3D RENDERING W/INTERP&POSTPROC DIFF WORK STATION Laisha Lizarraga, DIRECTOR ORACLE RETAIL.RECEPTION CENTRE MANAGER [address] [place] [phone] [facility] [place] [address] Referral ID Status Reason Start Date Expiration Date V isits Requested Visits Authorized [id number] Closed Auto-Generate d Referral 11/13/2022 12/13/2023 1 1 Specialty Diagnoses / Procedures Referred By Contac t Referred To Contact MR IMAGING Diagnoses 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) Procedures MRI BRAIN W QUANT WO IVCON MRI BRAIN BRAIN STEM W/O CONTRAST MATERIAL Laisha Lizarraga, DIRECTOR ORACLE RETAIL.RECEPTION CENTRE MANAGER [address] [place] [phone] Mr Imaging [id number] Referral ID Status Reason Start Date Expiration Date V isits Requested Visits Authorized [id number] Closed Auto-Generate d Referral 11/13/2022 12/13/2023 1 1 Specialty Diagnoses / Procedures Referred By Contac t Referred To Contact General Surgery Diagnoses Hiatal hernia Gastroesophageal reflux disease, unspecified whether esophagitis present Procedures CONSULT TO GENERAL SURGERY OFFICE/OUTPATIENT NEW HIGH MDM 60 MINUTES Susan Squires MD [address] [place] [address] Laisha Sheppard MD [address] [place] [address] Referral ID Status Reason Start Date Expiration Date Visits Requested Visits Authorized [id number] Authorized PCP Requested Referral 05/17/2024 05/17/2025 1 1 Specialty Diagnoses / Procedures Referred By Contac t Referred To Contact CT IMAGING Diagnoses Hiatal hernia Procedures CT CHEST W IVCON DIAGNOSTIC COMPUTED TOMOGRAPHY THORAX W/CONTRAST Anila De Paz MD [address] [place], [place] [id number] Ct [facility] [place] [address] Referral ID Status Reason Start Date Expiration Date Visits Requested Visits Authorized [id number] New Request Auto-Generat ed Referral 06/18/2024 07/18/2025 1 1 Specialty Diagnoses / Procedures Referred By Contac t Referred To Contact CT IMAGING Diagnoses Hiatal hernia Procedures CT ABD/PEL W IVCON CT ABD & PELVIS W/CONTRAST Anila De Paz MD [address] [place], [place] [id number] Ct [facility] [place] [address] Referral ID Status Reason Start Date Expiration Date Visits Requested Visits Authorized [id number] New Request Auto-Generat ed Referral 06/18/2024 07/18/2025 1 1 Specialty Diagnoses / Procedures Referred By Contac t Referred To Contact [facility] Diagnoses Hiatal hernia Procedures EGD DIAGNOSTIC ESOPHAGOGASTRODUODENOSC OPY TRANSORAL DIAGNOSTIC Anila De Paz MD [address] [place], [place] [id number] [facility] [place] [address] [place] [address] Referral ID Status Reason Start Date Expiration Date Visits Requested Visits Authorized [id number] Authorized Auto-Generat ed Referral 06/18/2024 06/18/2025 1 1 Referral ID Status Reason Start Date Expiration Date V isits Requested Visits Authorized [id number] Closed Auto-Generate d Referral 06/18/2024 07/18/2025 1 1 Specialty Diagnoses / Procedures Referred By Mauriac t Referred To Contact Diagnoses 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, psychotic disturbance, mood disturbance, or anxiety (HCC) Procedures PROVIDER ORDERED FOLLOW UP OFFICE/OUTPATIENT NEW HIGH MDM 60 MINUTES Laisha Lizarraga, ROSMERY.RECEPTION CENTRE MANAGER [address] [place] [address] Referral ID Status Reason Start Date Expiration Date Visits Requested Visits Authorized [id number] Authorized PCP Requested Referral 07/01/2025 1 1 Specialty Diagnoses / Procedures Referred By Vivienne t Referred To Contact Neurology Diagnoses Paresthesia of both feet Procedures CONSULT TO NEUROLOGY OFFICE/OUTPATIENT NEW HIGH MDM 60 MINUTES Laisha Lizarraga, RECEPTION CENTRE MANAGER [address] [place] [phone] Referral ID Status Reason Start Date Expiration Date Visits Requested Visits Authorized [id number] Authorized PCP Requested Referral 07/01/2025 1 1 Specialty Diagnoses / Procedures Referred By Contac t Referred To Contact MR IMAGING Diagnoses Abnormal results of liver function studies Procedures MRI 3D POST PROCESSING 3D RENDERING W/INTERP&POSTPROC DIFF WORK STATION Anila De Paz MD [address] [place], [place] [id number] [facility] [place] [address] Referral ID Status Reason Start Date Expiration Date Visits Requested Visits Authorized [id number] Authorized Auto-Generat ed Referral 09/03/2024 10/03/2025 1 1 Specialty Diagnoses / Procedures Referred By Contac t Referred To Contact MR IMAGING Diagnoses Abnormal results of liver function studies Procedures MRI PANC/MAGNOLIA WO/W IVCON MRI ABDOMEN W/O & W/CONTRAST MATERIAL Anila De Paz MD [address] [place], [place] [id number] [facility] [place] [address] Referral ID Status Reason Start Date Expiration Date Visits Requested Visits Authorized [id number] Authorized Auto-Generat ed Referral 09/03/2024 10/03/2025 1 1 Specialty Diagnoses / Procedures Referred By Contac t Referred To Contact Diagnoses Hiatal hernia Epigastric pain Nausea and vomiting, unspecified vomiting type Pre-op exam Procedures REFER TO [facility] PREOPERATIVE OPTIMIZATION OFFICE/OUTPATIENT [facility] 60 MINUTES Anila De Paz MD [address] [place] [address] Referral ID Status Reason Start Date Expiration Date Visits Requested Visits Authorized [id number] Authorized PCP Requested Referral 09/03/2024 09/03/2025 1 1 Referral ID Status Reason Start Date Expiration Date V isits Requested Visits Authorized [id number] Closed Auto-Generate d Referral 09/03/2024 10/03/2025 1 1 Referral ID Status Reason Start Date Expiration Date V isits Requested Visits Authorized [id number] Closed Auto-Generate d Referral 09/03/2024 10/03/2025 1 1 Summary Purpose Additional Source Comments Source Comments (unrecognize d section and content) In the event this informatio n is protected by the Federal Confidentiality of Alcohol and Drug Abuse Patient Records regulations: The Federal rules restrict any use of the information to criminally investigate or prosecute any alcohol or drug abuse patient.[facility] the event this information is protected by the Federal Confidentiality of Alcohol and Drug Abuse Patient Records regulations: The Federal rules restrict any use of the information to criminally investigate or prosecute any alcohol or drug abuse patient.[facility] HospitalIn the event this information is protected by the Federal Confidentiality of Alcohol and Drug Abuse Patient Records regulations: The Federal rules restrict any use of the information to criminally investigate or prosecute any alcohol or drug abuse patient.[facility] HospitalIn the event this information is protected by the Federal Confidentiality of Alcohol and Drug Abuse Patient Records regulations: The Federal rules restrict any use of the information to criminally investigate or prosecute any alcohol or drug abuse patient.[facility] the event this information is protected by the Federal Confidentiality of Alcohol and Drug Abuse Patient Records regulations: The Federal rules restrict any use of the information to criminally investigate or prosecute any alcohol or drug abuse patient.[facility] HospitalIn the event this information is protected by the Federal Confidentiality of Alcohol and Drug Abuse Patient Records regulations: The Federal rules restrict any use of the information to criminally investigate or prosecute any alcohol or drug abuse patient.[facility] HospitalIn the event this information is protected by the Federal Confidentiality of Alcohol and Drug Abuse Patient Records regulations: The Federal rules restrict any use of the information to criminally investigate or prosecute any alcohol or drug abuse patient.[facility] HospitalIn the event this information is protected by the Federal Confidentiality of Alcohol and Drug Abuse Patient Records regulations: The Federal rules restrict any use of the information to criminally investigate or prosecute any alcohol or drug abuse patient.[facility] HospitalIn the event this information is protected by the Federal Confidentiality of Alcohol and Drug Abuse Patient Records regulations: The Federal rules restrict any use of the information to criminally investigate or prosecute any alcohol or drug abuse patient.[facility] HospitalIn the event this information is protected by the Federal Confidentiality of Alcohol and Drug Abuse Patient Records regulations: The Federal rules restrict any use of the information to criminally investigate or prosecute any alcohol or drug abuse patient.[facility] HospitalIn the event this information is protected by the Federal Confidentiality of Alcohol and Drug Abuse Patient Records regulations: The Federal rules restrict any use of the information to criminally investigate or prosecute any alcohol or drug abuse patient.[facility] HospitalIn the event this information is protected by the Federal Confidentiality of Alcohol and Drug Abuse Patient Records regulations: The Federal rules restrict any use of the information to criminally investigate or prosecute any alcohol or drug abuse patient.[facility] HospitalIn the event this information is protected by the Federal Confidentiality of Alcohol and Drug Abuse Patient Records regulations: The Federal rules restrict any use of the information to criminally investigate or prosecute any alcohol or drug abuse patient.[facility] HospitalIn the event this information is protected by the Federal Confidentiality of Alcohol and Drug Abuse Patient Records regulations: The Federal rules restrict any use of the information to criminally investigate or prosecute any alcohol or drug abuse patient.[facility] HospitalIn the event this information is protected by the Federal Confidentiality of Alcohol and Drug Abuse Patient Records regulations: The Federal rules restrict any use of the information to criminally investigate or prosecute any alcohol or drug abuse patient.[facility] HospitalIn the event this information is protected by the Federal Confidentiality of Alcohol and Drug Abuse Patient Records regulations: The Federal rules restrict any use of the information to criminally investigate or prosecute any alcohol or drug abuse patient.[facility] HospitalIn the event this information is protected by the Federal Confidentiality of Alcohol and Drug Abuse Patient Records regulations: The Federal rules restrict any use of the information to criminally investigate or prosecute any alcohol or drug abuse patient.[facility] HospitalIn the event this information is protected by the Federal Confidentiality of Alcohol and Drug Abuse Patient Records regulations: The Federal rules restrict any use of the information to criminally investigate or prosecute any alcohol or drug abuse patient.[facility] HospitalIn the event this information is protected by the Federal Confidentiality of Alcohol and Drug Abuse Patient Records regulations: The Federal rules restrict any use of the information to criminally investigate or prosecute any alcohol or drug abuse patient.[facility] HospitalIn the event this information is protected by the Federal Confidentiality of Alcohol and Drug Abuse Patient Records regulations: The Federal rules restrict any use of the information to criminally investigate or prosecute any alcohol or drug abuse patient.[facility] HospitalIn the event this information is protected by the Federal Confidentiality of Alcohol and Drug Abuse Patient Records regulations: The Federal rules restrict any use of the information to criminally investigate or prosecute any alcohol or drug abuse patient.[facility] HospitalIn the event this information is protected by the Federal Confidentiality of Alcohol and Drug Abuse Patient Records regulations: The Federal rules restrict any use of the information to criminally investigate or prosecute any alcohol or drug abuse patient.[facility] HospitalIn the event this information is protected by the Federal Confidentiality of Alcohol and Drug Abuse Patient Records regulations: The Federal rules restrict any use of the information to criminally investigate or prosecute any alcohol or drug abuse patient.[facility] HospitalIn the event this information is protected by the Federal Confidentiality of Alcohol and Drug Abuse Patient Records regulations: The Federal rules restrict any use of the information to criminally investigate or prosecute any alcohol or drug abuse patient.[facility] HospitalIn the event this information is protected by the Federal Confidentiality of Alcohol and Drug Abuse Patient Records regulations: The Federal rules restrict any use of the information to criminally investigate or prosecute any alcohol or drug abuse patient.[facility] HospitalIn the event this information is protected by the Federal Confidentiality of Alcohol and Drug Abuse Patient Records regulations: The Federal rules restrict any use of the information to criminally investigate or prosecute any alcohol or drug abuse patient.[facility] HospitalIn the event this information is protected by the Federal Confidentiality of Alcohol and Drug Abuse Patient Records regulations: The Federal rules restrict any use of the information to criminally investigate or prosecute any alcohol or drug abuse patient.[facility] HospitalIn the event this information is protected by the Federal Confidentiality of Alcohol and Drug Abuse Patient Records regulations: The Federal rules restrict any use of the information to criminally investigate or prosecute any alcohol or drug abuse patient.[facility] HospitalIn the event this information is protected by the Federal Confidentiality of Alcohol and Drug Abuse Patient Records regulations: The Federal rules restrict any use of the information to criminally investigate or prosecute any alcohol or drug abuse patient.[facility] HospitalIn the event this information is protected by the Federal Confidentiality of Alcohol and Drug Abuse Patient Records regulations: The Federal rules restrict any use of the information to criminally investigate or prosecute any alcohol or drug abuse patient.[facility] HospitalIn the event this information is protected by the Federal Confidentiality of Alcohol and Drug Abuse Patient Records regulations: The Federal rules restrict any use of the information to criminally investigate or prosecute any alcohol or drug abuse patient.[facility] HospitalIn the event this information is protected by the Federal Confidentiality of Alcohol and Drug Abuse Patient Records regulations: The Federal rules restrict any use of the information to criminally investigate or prosecute any alcohol or drug abuse patient.[facility] HospitalIn the event this information is protected by the Federal Confidentiality of Alcohol and Drug Abuse Patient Records regulations: The Federal rules restrict any use of the information to criminally investigate or prosecute any alcohol or drug abuse patient.[facility] HospitalIn the event this information is protected by the Federal Confidentiality of Alcohol and Drug Abuse Patient Records regulations: The Federal rules restrict any use of the information to criminally investigate or prosecute any alcohol or drug abuse patient.[facility] HospitalIn the event this information is protected by the Federal Confidentiality of Alcohol and Drug Abuse Patient Records regulations: The Federal rules restrict any use of the information to criminally investigate or prosecute any alcohol or drug abuse patient.[facility] HospitalIn the event this information is protected by the Federal Confidentiality of Alcohol and Drug Abuse Patient Records regulations: The Federal rules restrict any use of the information to criminally investigate or prosecute any alcohol or drug abuse patient.[facility] HospitalIn the event this information is protected by the Federal Confidentiality of Alcohol and Drug Abuse Patient Records regulations: The Federal rules restrict any use of the information to criminally investigate or prosecute any alcohol or drug abuse patient.[facility] HospitalIn the event this information is protected by the Federal Confidentiality of Alcohol and Drug Abuse Patient Records regulations: The Federal rules restrict any use of the information to criminally investigate or prosecute any alcohol or drug abuse patient.[facility] HospitalIn the event this information is protected by the Federal Confidentiality of Alcohol and Drug Abuse Patient Records regulations: The Federal rules restrict any use of the information to criminally investigate or prosecute any alcohol or drug abuse patient.[facility] HospitalIn the event this information is protected by the Federal Confidentiality of Alcohol and Drug Abuse Patient Records regulations: The Federal rules restrict any use of the information to criminally investigate or prosecute any alcohol or drug abuse patient.[facility] HospitalIn the event this information is protected by the Federal Confidentiality of Alcohol and Drug Abuse Patient Records regulations: The Federal rules restrict any use of the information to criminally investigate or prosecute any alcohol or drug abuse patient.[facility] HospitalIn the event this information is protected by the Federal Confidentiality of Alcohol and Drug Abuse Patient Records regulations: The Federal rules restrict any use of the information to criminally investigate or prosecute any alcohol or drug abuse patient.[facility] HospitalIn the event this information is protected by the Federal Confidentiality of Alcohol and Drug Abuse Patient Records regulations: The Federal rules restrict any use of the information to criminally investigate or prosecute any alcohol or drug abuse patient.[facility] HospitalIn the event this information is protected by the Federal Confidentiality of Alcohol and Drug Abuse Patient Records regulations: The Federal rules restrict any use of the information to criminally investigate or prosecute any alcohol or drug abuse patient.[facility] HospitalIn the event this information is protected by the Federal Confidentiality of Alcohol and Drug Abuse Patient Records regulations: The Federal rules restrict any use of the information to criminally investigate or prosecute any alcohol or drug abuse patient.[facility] HospitalIn the event this information is protected by the Federal Confidentiality of Alcohol and Drug Abuse Patient Records regulations: The Federal rules restrict any use of the information to criminally investigate or prosecute any alcohol or drug abuse patient.[facility] HospitalIn the event this information is protected by the Federal Confidentiality of Alcohol and Drug Abuse Patient Records regulations: The Federal rules restrict any use of the information to criminally investigate or prosecute any alcohol or drug abuse patient.[facility] HospitalIn the event this information is protected by the Federal Confidentiality of Alcohol and Drug Abuse Patient Records regulations: The Federal rules restrict any use of the information to criminally investigate or prosecute any alcohol or drug abuse patient.[facility] HospitalIn the event this information is protected by the Federal Confidentiality of Alcohol and Drug Abuse Patient Records regulations: The Federal rules restrict any use of the information to criminally investigate or prosecute any alcohol or drug abuse patient.[facility] HospitalIn the event this information is protected by the Federal Confidentiality of Alcohol and Drug Abuse Patient Records regulations: The Federal rules restrict any use of the information to criminally investigate or prosecute any alcohol or drug abuse patient.[facility] HospitalIn the event this information is protected by the Federal Confidentiality of Alcohol and Drug Abuse Patient Records regulations: The Federal rules restrict any use of the information to criminally investigate or prosecute any alcohol or drug abuse patient.[facility] HospitalIn the event this information is protected by the Federal Confidentiality of Alcohol and Drug Abuse Patient Records regulations: The Federal rules restrict any use of the information to criminally investigate or prosecute any alcohol or drug abuse patient.[facility] HospitalIn the event this information is protected by the Federal Confidentiality of Alcohol and Drug Abuse Patient Records regulations: The Federal rules restrict any use of the information to criminally investigate or prosecute any alcohol or drug abuse patient.[facility] HospitalIn the event this information is protected by the Federal Confidentiality of Alcohol and Drug Abuse Patient Records regulations: The Federal rules restrict any use of the information to criminally investigate or prosecute any alcohol or drug abuse patient.[facility]In the event this information is protected by the Federal Confidentiality of Alcohol and Drug Abuse Patient Records regulations: The Federal rules restrict any use of the information to criminally investigate or prosecute any alcohol or drug abuse patient.[facility] HospitalIn the event this information is protected by the Federal Confidentiality of Alcohol and Drug Abuse Patient Records regulations: The Federal rules restrict any use of the information to criminally investigate or prosecute any alcohol or drug abuse patient.[facility] HospitalIn the event this information is protected by the Federal Confidentiality of Alcohol and Drug Abuse Patient Records regulations: The Federal rules restrict any use of the information to criminally investigate or prosecute any alcohol or drug abuse patient.[facility] HospitalIn the event this information is protected by the Federal Confidentiality of Alcohol and Drug Abuse Patient Records regulations: The Federal rules restrict any use of the information to criminally investigate or prosecute any alcohol or drug abuse patient.[facility] HospitalIn the event this information is protected by the Federal Confidentiality of Alcohol and Drug Abuse Patient Records regulations: The Federal rules restrict any use of the information to criminally investigate or prosecute any alcohol or drug abuse patient.[facility] HospitalIn the event this information is protected by the Federal Confidentiality of Alcohol and Drug Abuse Patient Records regulations: The Federal rules restrict any use of the information to criminally investigate or prosecute any alcohol or drug abuse patient.[facility] HospitalIn the event this information is protected by the Federal Confidentiality of Alcohol and Drug Abuse Patient Records regulations: The Federal rules restrict any use of the information to criminally investigate or prosecute any alcohol or drug abuse patient.[facility] HospitalIn the event this information is protected by the Federal Confidentiality of Alcohol and Drug Abuse Patient Records regulations: The Federal rules restrict any use of the information to criminally investigate or prosecute any alcohol or drug abuse patient.[facility] HospitalIn the event this information is protected by the Federal Confidentiality of Alcohol and Drug Abuse Patient Records regulations: The Federal rules restrict any use of the information to criminally investigate or prosecute any alcohol or drug abuse patient.[facility] HospitalIn the event this information is protected by the Federal Confidentiality of Alcohol and Drug Abuse Patient Records regulations: The Federal rules restrict any use of the information to criminally investigate or prosecute any alcohol or drug abuse patient.[facility] HospitalIn the event this information is protected by the Federal Confidentiality of Alcohol and Drug Abuse Patient Records regulations: The Federal rules restrict any use of the information to criminally investigate or prosecute any alcohol or drug abuse patient.[facility] HospitalIn the event this information is protected by the Federal Confidentiality of Alcohol and Drug Abuse Patient Records regulations: The Federal rules restrict any use of the information to criminally investigate or prosecute any alcohol or drug abuse patient.[facility] HospitalIn the event this information is protected by the Federal Confidentiality of Alcohol and Drug Abuse Patient Records regulations: The Federal rules restrict any use of the information to criminally investigate or prosecute any alcohol or drug abuse patient.[facility] HospitalIn the event this information is protected by the Federal Confidentiality of Alcohol and Drug Abuse Patient Records regulations: The Federal rules restrict any use of the information to criminally investigate or prosecute any alcohol or drug abuse patient.[facility] HospitalIn the event this information is protected by the Federal Confidentiality of Alcohol and Drug Abuse Patient Records regulations: The Federal rules restrict any use of the information to criminally investigate or prosecute any alcohol or drug abuse patient.[facility] HospitalIn the event this information is protected by the Federal Confidentiality of Alcohol and Drug Abuse Patient Records regulations: The Federal rules restrict any use of the information to criminally investigate or prosecute any alcohol or drug abuse patient.[facility] HospitalIn the event this information is protected by the Federal Confidentiality of Alcohol and Drug Abuse Patient Records regulations: The Federal rules restrict any use of the information to criminally investigate or prosecute any alcohol or drug abuse patient.[facility] HospitalIn the event this information is protected by the Federal Confidentiality of Alcohol and Drug Abuse Patient Records regulations: The Federal rules restrict any use of the information to criminally investigate or prosecute any alcohol or drug abuse patient.[facility] HospitalIn the event this information is protected by the Federal Confidentiality of Alcohol and Drug Abuse Patient Records regulations: The Federal rules restrict any use of the information to criminally investigate or prosecute any alcohol or drug abuse patient.[facility] HospitalIn the event this information is protected by the Federal Confidentiality of Alcohol and Drug Abuse Patient Records regulations: The Federal rules restrict any use of the information to criminally investigate or prosecute any alcohol or drug abuse patient.[facility] HospitalIn the event this information is protected by the Federal Confidentiality of Alcohol and Drug Abuse Patient Records regulations: The Federal rules restrict any use of the information to criminally investigate or prosecute any alcohol or drug abuse patient.[facility] HospitalIn the event this information is protected by the Federal Confidentiality of Alcohol and Drug Abuse Patient Records regulations: The Federal rules restrict any use of the information to criminally investigate or prosecute any alcohol or drug abuse patient.[facility] HospitalIn the event this information is protected by the Federal Confidentiality of Alcohol and Drug Abuse Patient Records regulations: The Federal rules restrict any use of the information to criminally investigate or prosecute any alcohol or drug abuse patient.[facility] HospitalIn the event this information is protected by the Federal Confidentiality of Alcohol and Drug Abuse Patient Records regulations: The Federal rules restrict any use of the information to criminally investigate or prosecute any alcohol or drug abuse patient.[facility] HospitalIn the event this information is protected by the Federal Confidentiality of Alcohol and Drug Abuse Patient Records regulations: The Federal rules restrict any use of the information to criminally investigate or prosecute any alcohol or drug abuse patient.[facility] HospitalIn the event this information is protected by the Federal Confidentiality of Alcohol and Drug Abuse Patient Records regulations: The Federal rules restrict any use of the information to criminally investigate or prosecute any alcohol or drug abuse patient.[facility] HospitalIn the event this information is protected by the Federal Confidentiality of Alcohol and Drug Abuse Patient Records regulations: The Federal rules restrict any use of the information to criminally investigate or prosecute any alcohol or drug abuse patient.[facility] HospitalIn the event this information is protected by the Federal Confidentiality of Alcohol and Drug Abuse Patient Records regulations: The Federal rules restrict any use of the information to criminally investigate or prosecute any alcohol or drug abuse patient.[facility] HospitalIn the event this information is protected by the Federal Confidentiality of Alcohol and Drug Abuse Patient Records regulations: The Federal rules restrict any use of the information to criminally investigate or prosecute any alcohol or drug abuse patient.[facility] Reason for Visit (unrecogniz ed section and content) Reason Comments OT Discharge Specialty Diagnoses / Procedures Referred By Vivienne hunt Referred To Contact [facility] Diagnoses Fine motor impairment Procedures CONSULT TO SOIL CHEMIST OCCUPATIONAL THERAPY EVAL HIGH COMPLEX 60 MINS Laisha Lizarraga, DIRECTOR [employer]RECEPTION CENTRE MANAGER [address] [place] [address] Phone: tel: fax: [facility] [address] [place] [address] Referral ID Status Reason Start Date Expiration Date Visits Requested Visits Authorized [id number] Authorized PCP Requested Referral Auto-Generate d Referral 10/13/2024 10/13/2025 99 99 Reason Comments Occupational Therapy Reason Comments New Patient Reason Comments Follow Up Reason Comments Follow Up Reason Comments Established Patient Reason Comments Established Patient Follow-Up Established Patient Reason Comments Glaucoma Suspect Follow Up Reason Onset Date Comments Refill Request 10/30/2023 Reason Comments Refill Request Reason Onset Date Comments Refill Request 12/26/2023 Reason Onset Date Comments Refill Request 03/12/2024 Reason Onset Date Comments Refill Request 03/24/2024 Reason Comments Established Patient Follow-Up F/U Reason Comments Primary Open Angle Glaucoma Follow Up Reason Comments Radiology MRI Specialty Diagnoses / Procedures Referred By Contac t Referred To Contact MR IMAGING Diagnoses 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) Procedures MRI BRAIN W QUANT WO IVCON MRI BRAIN BRAIN STEM W/O CONTRAST MATERIAL Laisha Lizarraga, DIRECTOR [employer].RECEPTION CENTRE MANAGER [address] [place] [address] [facility] [place] [address] Referral ID Status Reason Start Date Expiration Date V isits Requested Visits Authorized [id number] Closed Auto-Generate d Referral 11/13/2022 12/13/2023 1 1 Reason Comments Consult Diaphragmatic Hernia Reason Onset Date Comments Refill Request 06/10/2024 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 Comments 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 Reason Comments Consult Specialty Diagnoses / Procedures Referred By Contac t Referred To Contact General Surgery Diagnoses Hiatal hernia Gastroesophageal reflux disease, unspecified whether esophagitis present Procedures CONSULT TO GENERAL SURGERY OFFICE/OUTPATIENT [facility] 60 MINUTES Susan Squires MD [address] [place] [address] Laisha Sheppard MD [address] [place] [address] Referral ID Status Reason Start Date Expiration Date V isits Requested Visits Authorized [id number] Closed PCP Requested Referral 05/17/2024 05/17/2025 [address] Specialty Diagnoses / Procedures Referred By Contac t Referred To Contact CT IMAGING Diagnoses Hiatal hernia Procedures CT ABD/PEL W IVCON CT ABD & PELVIS W/CONTRAST Anila De Paz MD [address] [place] [address] Ct [facility] [place] [address] Referral ID Status Reason Start Date Expiration Date V isits Requested Visits Authorized [id number] Closed Auto-Generate d Referral 06/18/2024 07/18/2025 1 1 Reason Comments Established Patient Follow-Up Office vis it Reason Comments Patient Question EGD Instructions nee ded Reason Comments Pre-Procedure Teaching Reason Comments Patient Question Reason Comments Appointment Confirmation Reason Comments Request Outside Medical Records Reason Comments Anesthesia Consult Reason Comments 3 month follow up for POAG OU Reason Comments New Patient Specialty Diagnoses / Procedures Referred By Mauriac t Referred To Contact Cardiology Diagnoses H/O acute myocardial infarction Cardiomyopathy, unspecified type (HCC) Pre-op evaluation Procedures CONSULT TO CARDIOLOGY OFFICE/OUTPATIENT [facility] 60 MINUTES Anila De Paz MD [address] [place], [place] [id number] Referral ID Status Reason Start Date Expiration Date V isits Requested Visits Authorized [id number] Closed PCP Requested Referral 06/18/2024 06/18/2025 1 1 Reason Comments Consult Paresthesia of both feet/ illegal writing Specialty Diagnoses / Procedures Referred By Vivienne t Referred To Contact Neurology Diagnoses Paresthesia of both feet Procedures CONSULT TO NEUROLOGY OFFICE/OUTPATIENT [facility] 60 MINUTES Laisha Lizarraga, ROSMERY.RECEPTION CENTRE MANAGER [address] [place] [address] Referral ID Status Reason Start Date Expiration Date V isits Requested Visits Authorized [id number] Closed PCP Requested Referral 07/31/2024 07/01/2025 1 1 Reason Comments Patient Question Next Steps Reason Comments Follow Up ([facility]) Reason Comments 09/20/24 Reason Comments Pre-Op Teaching Reason Comments Preparations For Surgery Pre-op Aspirin instructions Specialty Diagnoses / Procedures Referred By Vivienne t Referred To Contact [facility] IM[facility] Diagnoses Abnormal results of liver function studies Procedures MRI PANC/MAGNOLIA WO/W IVCON MRI ABDOMEN W/O & W/CONTRAST MATERIAL Anila De Paz MD [address] [place], [place] [id number] [facility] [place] [address] Referral ID Status Reason Start Date Expiration Date V isits Requested Visits Authorized [id number] Closed Auto-Generate d Referral 09/03/2024 10/03/2025 1 1 Reason Comments Patient Update Reason Comments 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 on EUS o rders Reason Comments Preparations For Surgery PACC Reason Onset Date Comments EMG 09/10/2024 Specialty Diagnoses / Procedures Referred By Vivienne t Referred To Contact [facility] Diagnoses Neuropathy Procedures EMG(NEURO/NI) NERVE CONDUCTION STUDIES 9-10 STUDIES Denice Jacobs PA-C [address] [place] [address] [facility] [place] [address] [place] [address] Referral ID Status Reason Start Date Expiration Date V isits Requested Visits Authorized [id number] Closed Auto-Generate d Referral 08/06/2024 08/06/2025 1 1 Reason Comments Consult surgery 09/20/24 [place] Reason Comments Post Op Reason Comments Established Patient Follow-Up Office vis it Reason Comments OT EVAL Reason Comments Primary Open Angle Glaucoma Follow up 3 m HVF Blurred Vision Both Eyes Reason Comments Established Patient Neuropathy, falls Reason Comments Radiology CT Specialty Diagnoses / Procedures Referred By Vivienne hunt Referred To Contact CT IMAGING Diagnoses Nausea Procedures CT ABD/PEL W IVCON CT ABD & PELVIS W/CONTRAST Anila De Paz MD [address] [place] [id number] Phone: tel: fax: [facility] [place] [address] Referral ID Status Reason Start Date Expiration Date V isits Requested Visits Authorized [id number] Closed Auto-Generate d Referral 11/02/2024 12/02/2025 1 1 Reason Onset Date Comments Refill Request 12/16/2024 Reason Comments Abrasion to right forearm x1 day Reason Comments Established Patient Reason Comments Follow Up Care Teams (unrecognized sec tion and content) Paper Control Clerk Relationship Specialty Start Date End Date Bryant Melendrez MD [address] [place] [address] PCP - General Internal Medicine 11/20/20 Paper Control Clerk Relationship Specialty Start Date End Date Bryant Melendrez MD [address] [facility] [place], [place] [phone] PCP - General Internal Medicine 11/20/20 Paper Control Clerk Relationship Specialty Start Date End Date Chema Perry MD [address] [place], [place] [phone] PCP - General Internal Medicine 04/11/22 Team Status: Active Member Role Status Dates TIA ROSALES Family Provider Active Dr. Chema Perry MD Primary Care Provider Active Team Status: Inactive Member Role Status Dates Dr. Chema Perry MD Primary Care Provider, Attendi ng Provider Active Team Status: Inactive Member Role Status Dates Dr. Chema Perry MD Primary Care Provider, Referri ng Provider Active Sandra Vincent LIDDER, LIDDER-C Attending Provider Active Team Status: Inactive Member Role Status Dates Dr. Chema Perry MD Primary Care Provider, Referri ng Provider Active Dr. James Elizabeth MD Attending Provider Active Team Status: Inactive Member Role Status Dates Dr. Chema Perry MD Primary Care Provider, Referri ng Provider Active Phillip VALENCIA, [place] Attending Provider Active Team Status: Active Member Role Status Dates Dr. Chema Perry MD Primary Care Provider Active Forrest Ortiz Attending Provider Active Team Status: Inactive Member Role Status Dates Dr. Chema Perry MD Primary Care Provider, Referri ng Provider Active Dr. Sarbjit Kraus MD Attending Provider Active Team Status: Inactive Member Role Status Dates Dr. Chema Perry MD Primary Care Provider Active Dr. Rolando Griffith MD Attending Provider Active Team Status: Inactive Member Role Status Dates Dr. Arun Ramos MD Attending Provider, Referring Pr ovider Active ALEKS BEAR Primary Care Provider Active Team Status: Inactive Member Role Status Dates Dr. Chema Perry MD Primary Care Pro vider, Attending Provider, Referring Provider Active Team Status: Inactive Member Role Status Dates Dr. Chema Perry MD Primary Care Provider Active Dr. Isma Bustamante DO Attending Provider, Emergency Pr ovider Active Team Status: Active Member Role Status Dates Dr. Chema Perry MD Primary Care Provider Active Dr. Arun Ramos MD Attending Provider, Referring Pr ovider Active Team Status: Inactive Member Role Status Dates Dr. Chema Perry MD Primary Care Provider Active Dr. Shiraz Blanchard DO Attending Provider, Referring Provider Active Team Status: Inactive Member Role Status Dates Dr. Chema Perry MD Primary Care Provider, Referri ng Provider Active Jd VALENCIA, [place] Attending Provider Active Team Status: Inactive Member Role Status Dates Dr. Chema Peryr MD Primary Care Provider Active Jd VALENCIA, [place] Attending Provider, Referring Pr ovider Active Team Status: Inactive Member Role Status Dates Dr. Chema Perry MD Primary Care Provider Active Cal Keith MD Emergency Provider Active Paper Control Clerk Relationship Specialty Start Date End Date Chema Perry MD [address] [place] [address] PCP - General Internal Medicine 04/11/22 Team Status: Inactive Member Role Status Dates Dr. Chema Perry MD Primary Care Provider, Referri ng Provider Active BURAK Barrios Attending Provider Active Team Status: Active Member Role Status Dates Dr. Chema Perry MD Primary Care Provider, Attendi ng Provider Active Dr. Arun Ramos MD Referring Provider Active Team Status: Inactive Member Role Status Dates Dr. Chema Perry MD Primary Care Provider Active Cal Keith MD Attending Provider, Emergency Provid er Active Team Status: Inactive Member Role Status Dates Dr. Chema Perry MD Primary Care Provider, Referri ng Provider Active Dr. Malachi Caal MD Attending Provider Active Team Status: Active Member Role Status Dates Dr. Chema Perry MD Primary Care Provider Active Dr. Vincent Smart MD Attending Provider Active Jd VALENCIA, [place] Referring Provider Active Team Status: Inactive Member Role Status Dates Dr. Chema Perry MD Primary Care Provider, Referri ng Provider Active Jerri VALENCIA, [place] Attending Provider Active Team Status: Active Member Role Status Dates Dr. Chema Perry MD Primary Care Pro vider, Attending Provider, Referring Provider Active Team Status: Inactive Member Role Status Dates Dr. Chema Perry MD Primary Care Provider, Attendi ng Provider Active Dr. Arun Ramos MD Referring Provider Active Team Status: Inactive Member Role Status Dates Dr. Chema Perry MD Primary Care Provider Active Dr. Malachi Caal MD Attending Provider, Referring Pr ovider Active Team Status: Inactive Member Role Status Dates Dr. Chema Perry MD Primary Care Provider Active Dr. Isma Bustamante DO Emergency Provider Active Paper Control Clerk Relationship Specialty Start Date End Date Chema Perry MD [address] [place] [address] PCP - General Internal Medicine 04/11/22 Team Status: Active Member Role Status Dates Dr. Chema Perry MD Primary Care Provider Active Dr. Rolando Griffith MD Attending Provider Active Team Status: Inactive Member Role Status Dates Dr. Chema Perry MD Primary Care Provider Active Jerri Whitfield PA, PA Attending Provider, Referr ing Provider Active Team Status: Active Member Role Status Dates Dr. Chema Perry MD Primary Care Provider Active Dr. Rolando Griffith MD Attending Provider Active Jerri Whitfield PA, PA Referring Provider Active Team Status: Inactive Member Role Status Dates Dr. Chema Perry MD Primary Care Provider Active Dr. Stephanie Brush MD Attending Provider, Referring P rochelle Active Paper Control Clerk Relationship Specialty Start Date End Date Chema Perry MD [address] [place] [address] PCP - General Internal Medicine 04/11/22 Team Status: Inactive Member Role Status Dates Dr. Chema Perry MD Primary Care Provider Active Dr. Sarbjit Kraus MD Attending Provider, Referr ing Provider Active Paper Control Clerk Relationship Specialty Start Date End Date Chema Perry MD [address] [place], [place] [phone] PCP - General Internal Medicine 04/11/22 Stephanie Brush [address] [facility] [place], [place] [phone] Referring Ophthalmology 07/23/23 Team Status: Active Member Role Status Dates Dr. Chema Perry MD Primary Care Provider Active Dr. Porfirio Bloom MD Attending Provider, Referring Provider Active Paper Control Clerk Relationship Specialty Start Date End Date Chema Perry MD [address] [place], [place] [phone] PCP - General Internal Medicine 04/11/22 Stephanie Brush [address] [facility] [place], [place] [address] Referring Ophthalmology 07/23/23 Paper Control Clerk Relationship Specialty Start Date End Date Chema Perry MD [address] [place], [place] [phone] PCP - General Internal Medicine 04/11/22 Stephanie Brush [address] [facility] [place], [place] [address] Referring Ophthalmology 07/23/23 Team Status: Inactive Member Role Status Dates Dr. Chema Perry MD Primary Care Provider, Referri ng Provider Active Tamiko Ku LIDDER, LIDDER-C Attending Provider Active Team Status: Inactive Member Role Status Dates Dr. Chema Perry MD Primary Care Provider Active Dr. Porfirio Bloom MD Attending Provider, Referring Provider Active Team Status: Active Member Role Status Dates Dr. Chema Perry MD Primary Care Provider, Referri ng Provider Active Dr. Vincent Smart MD Attending Provider Active Team Status: Active Member Role Status Dates Dr. Chema Perry MD Primary Care Provider Active Tamiko Ku LIDDER, LIDDER-C Attending Provider Active Team Status: Inactive Member Role Status Dates Dr. Chema Perry MD Primary Care Provider Active Tamiko Ku LIDDER, LIDDER-C Attending Provider, Referring P rochelle Active Paper Control Clerk Relationship Specialty Start Date End Date Chema Perry MD [address] [place] [address] PCP - General Internal Medicine 04/11/22 Stephanie Brush [address] [facility] [place] [address] Referring Ophthalmology 07/23/23 Paper Control Clerk Relationship Specialty Start Date End Date Chema Perry MD [address] [place] [address] PCP - General Internal Medicine 04/11/22 Stephanie Brush [address] [place] [address] Referring Ophthalmology 07/23/23 Paper Control Clerk Relationship Specialty Start Date End Date Chema Perry MD [address] [place] [address] PCP - General Internal Medicine 04/11/22 Stephanie Brush [address] [facility] [place] [address] Referring Ophthalmology 07/23/23 Porfirio Carreon [address] [place] [phone] Referring Orthopedics 02/10/24 Paper Control Clerk Relationship Specialty Start Date End Date Chema Perry MD [address] [place], [place] 804601 PCP - General Internal Medicine 04/11/22 Stephanie Brush [address] [facility] [place] [address] Referring Ophthalmology 07/23/23 Porfirio Carreon [address] [place] [phone] Referring Orthopedics 02/10/24 Paper Control Clerk Relationship Specialty Start Date End Date Chema Perry MD [address] [place] [address] PCP - General Internal Medicine 04/11/22 Stephanie Brush [address] [facility] [place], [place] 594331 Referring Ophthalmology 07/23/23 Porfirio Carreon [address] [place] [phone] Referring Orthopedics 02/10/24 Paper Control Clerk Relationship Specialty Start Date End Date Chema Perry MD [address] [place] [address] PCP - General Internal Medicine 04/11/22 Stephanie Brush MD [address] [facility] [place] [address] Referring Ophthalmology 07/23/23 Porfirio Carreon [address] [place] [phone] Referring Orthopedics 02/10/24 Paper Control Clerk Relationship Specialty Start Date End Date Chema Perry MD [address] [place] [address] PCP - General Internal Medicine 04/11/22 Paper Control Clerk Relationship Specialty Start Date End Date Chema Perry MD [address] [place], [place] 669751 PCP - General Internal Medicine 04/11/22 Stephanie Brush MD [address] [facility] [place] [address] Referring Ophthalmology 07/23/23 Porfirio Carreon [address] [place] [phone] Referring Orthopedics 02/10/24 Paper Control Clerk Relationship Specialty Start Date End Date Chema Perry MD [address] [place] [address] PCP - General Internal Medicine 04/11/22 Stephanie Brush MD [address] [facility] [place] 828501 Referring Ophthalmology 07/23/23 Porfirio Carreon [address] [place] [address] Referring Orthopedics 02/10/24 Paper Control Clerk Relationship Specialty Start Date End Date Chema Perry MD [address] [place] [address] PCP - General Internal Medicine 04/11/22 Stephanie Brush MD [address] [place] [address]21 Referring Ophthalmology 07/23/23 Porfirio Carreon [address] [facility] 2 [place] [phone] Referring Orthopedics 02/10/24 Paper Control Clerk Relationship Specialty Start Date End Date Chema Perry MD [address] [place] [place], [place] 135161 PCP - General Internal Medicine 04/11/22 Stephanie Brush MD [address] [facility] [place], [place] [address]91 Referring Ophthalmology 07/23/23 Porfirio Carreon [address] [place] [phone] Referring Orthopedics 02/10/24 Paper Control Clerk Relationship Specialty Start Date End Date Chema Perry MD [address] [place], [place] 358421 PCP - General Internal Medicine 04/11/22 Stephanie Brush MD [address] [facility] [place], [place] 344731 Referring Ophthalmology 07/23/23 Porfirio Carreon [address] [place] [phone] Referring Orthopedics 02/10/24 Paper Control Clerk Relationship Specialty Start Date End Date Chema Perry MD [address] [place], [place] 191621 PCP - General Internal Medicine 04/11/22 Stephanie Brush MD [address] [facility] [place], [place] 567981 Referring Ophthalmology 07/23/23 Porfirio Carreon [address] [place] [phone] Referring Orthopedics 02/10/24 Paper Control Clerk Relationship Specialty Start Date End Date Chema Perry MD [address] [place] [address] PCP - General Internal Medicine 04/11/22 Stephanie Brush MD [address] [place] [address] Referring Ophthalmology 07/23/23 Porfirio Carreon [address] [place] [phone] Referring Orthopedics 02/10/24 Paper Control Clerk Relationship Specialty Start Date End Date Chema Perry MD [address] [place], [place] 839691 PCP - General Internal Medicine 04/11/22 Stephanie Brush MD [address] [facility] [place] [address] Referring Ophthalmology 07/23/23 Porfirio Carreon [address] [place] [phone] Referring Orthopedics 02/10/24 Paper Control Clerk Relationship Specialty Start Date End Date Chema Perry MD [address] [place], [place] 315921 PCP - General Internal Medicine 04/11/22 Stephanie Brush MD [address] [facility] [place] [address] Referring Ophthalmology 07/23/23 Porfirio Carreon [address] [place] [phone] Referring Orthopedics 02/10/24 Paper Control Clerk Relationship Specialty Start Date End Date Chema Perry MD [address] [place], [place] 042851 PCP - General Internal Medicine 04/11/22 Stephanie Brush MD [address] [facility] [place] [address] Referring Ophthalmology 07/23/23 Porfirio Carreon [address] [place] [phone] Referring Orthopedics 02/10/24 Paper Control Clerk Relationship Specialty Start Date End Date Chema Perry MD [address] [facility] [place] [address] PCP - General Internal Medicine 04/11/22 Stephanie Brush MD [address] [place] [address] Referring Ophthalmology 07/23/23 Porfirio Carreon [address] [place] [phone] Referring Orthopedics 02/10/24 Paper Control Clerk Relationship Specialty Start Date End Date Chema Perry MD [address] [place] [address] PCP - General Internal Medicine 04/11/22 Stephanie Brush MD [address] [place] [address] Referring Ophthalmology 07/23/23 Porfirio Carreon [address] [place] [phone] Referring Orthopedics 02/10/24 Paper Control Clerk Relationship Specialty Start Date End Date Chema Perry MD [address] [place], [place] 237091 PCP - General Internal Medicine 04/11/22 Stephanie Brush MD [address] [place] [address] Referring Ophthalmology 07/23/23 Porfirio Carreon [address] [facility] 2 [place] [phone] Referring Orthopedics 02/10/24 Paper Control Clerk Relationship Specialty Start Date End Date Chema Perry MD [address] [place], [place] 103951 PCP - General Internal Medicine 04/11/22 Stephanie Brush MD [address] [place], [place] 260481 Referring Ophthalmology 07/23/23 Porfirio Carreon [address] [facility] 2 [place] [phone] Referring Orthopedics 02/10/24 [place] [address] [place], [place] 7944636 Monogram Machine Operator Cardiology 08/03/24 Paper Control Clerk Relationship Specialty Start Date End Date Chema Perry MD [address] [place], [place] 254671 PCP - General Internal Medicine 04/11/22 Stephanie Brush MD [address] [place], [place] 718111 Referring Ophthalmology 07/23/23 Porfirio Carreon [address] [place] [phone] Referring Orthopedics 02/10/24 [place] [address] [place] [address] Monogram Machine Operator Cardiology 08/03/24 Paper Control Clerk Relationship Specialty Start Date End Date Chema Perry MD [address] [place], [place] 867211 PCP - General Internal Medicine 04/11/22 Stephanie Brush MD [address] [place] [address] Referring Ophthalmology 07/23/23 Porfirio Carreon [address] [facility] 2 [place] [phone] Referring Orthopedics 02/10/24 [place] [address] [place] [address] Monogram Machine Operator Cardiology 08/03/24 Paper Control Clerk Relationship Specialty Start Date End Date Chema Perry MD [address] [place] [address] PCP - General Internal Medicine 04/11/22 Stephanie Brush MD [address] [place] [address] Referring Ophthalmology 07/23/23 Porfirio Carreon [address] [place] [phone] Referring Orthopedics 02/10/24 [place] [address] [place] [address] Monogram Machine Operator Cardiology 08/03/24 Paper Control Clerk Relationship Specialty Start Date End Date Chema Perry MD [address] [place], [place] 198761 PCP - General Internal Medicine 04/11/22 Stephanie Brush MD [address] [place], [place] 534391 Referring Ophthalmology 07/23/23 Porfirio Carreon [address] [place] [phone] Referring Orthopedics 02/10/24 [place] [address] [place] [address] Monogram Machine Operator Cardiology 08/03/24 Paper Control Clerk Relationship Specialty Start Date End Date Chema Perry MD [address] [place], [place] 009711 PCP - General Internal Medicine 04/11/22 Stephanie Brush MD [address] [place], [place] 175971 Referring Ophthalmology 07/23/23 Porfirio Carreon [address] [place] [phone] Referring Orthopedics 02/10/24 [place] [address] [place] [address] Monogram Machine Operator Cardiology 08/03/24 Paper Control Clerk Relationship Specialty Start Date End Date Chema Perry MD [address] [place], [place] 668671 PCP - General Internal Medicine 04/11/22 Stephanie Brush MD [address] [place], [place] 159501 Referring Ophthalmology 07/23/23 Porfirio Carreon [address] [phone] Referring Orthopedics 02/10/24 [place] [address] [place] [address] Monogram Machine Operator Cardiology 08/03/24 Paper Control Clerk Relationship Specialty Start Date End Date Chema Perry MD [address] [place], [place] 615451 PCP - General Internal Medicine 04/11/22 Stephanie Brush MD [address] [place], [place] 529231 Referring Ophthalmology 07/23/23 Porfirio Carreon [address] [place] [phone] Referring Orthopedics 02/10/24 [place] [address] [place] [address] Monogram Machine Operator Cardiology 08/03/24 Paper Control Clerk Relationship Specialty Start Date End Date Chema Perry MD [address] [place] [address] PCP - General Internal Medicine 04/11/22 Stephanie Brush MD [address] [place], [place] 166811 Referring Ophthalmology 07/23/23 Porfirio Carreon [address] [place] [phone] Referring Orthopedics 02/10/24 [place] [address] [place] [address] Monogram Machine Operator Cardiology 08/03/24 Paper Control Clerk Relationship Specialty Start Date End Date Chema Perry MD [address] [place], [place] 623001 PCP - General Internal Medicine 04/11/22 Stephanie Brush MD [address] [place], [place] 276501 Referring Ophthalmology 07/23/23 Porfirio Carreon [address] [place] [phone] Referring Orthopedics 02/10/24 [place] [address] [place] [address] Monogram Machine Operator Cardiology 08/03/24 Paper Control Clerk Relationship Specialty Start Date End Date Chema Perry MD [address] [place] [address] PCP - General Internal Medicine 04/11/22 Stephanie Brush MD [address] [place] [address] Referring Ophthalmology 07/23/23 Porfirio Carreon [address] [place] [phone] Referring Orthopedics 02/10/24 [place] [address] [place] [address] Monogram Machine Operator Cardiology 08/03/24 Paper Control Clerk Relationship Specialty Start Date End Date Chema Perry MD [address] [place] [address] PCP - General Internal Medicine 04/11/22 Stephanie Brush MD [address] [place] [address] Referring Ophthalmology 07/23/23 Porfirio Carreon [address] [place] [address] Referring Orthopedics 02/10/24 [place] [address] [place], [place] 5088836 Monogram Machine Operator Cardiology 08/03/24 Paper Control Clerk Relationship Specialty Start Date End Date Chema Perry MD [address] [place], [place] 940901 PCP - General Internal Medicine 04/11/22 Stephanie Brush MD [address] [place] [address] Referring Ophthalmology 07/23/23 Porfirio Carreon [address] [place] [phone] Referring Orthopedics 02/10/24 [place] [address] [place], [place] 0385936 Monogram Machine Operator Cardiology 08/03/24 Paper Control Clerk Relationship Specialty Start Date End Date Chema Perry MD [address] [place] [address] PCP - General Internal Medicine 04/11/22 Stephanie Brush MD [address] [place], [place] 472611 Referring Ophthalmology 07/23/23 Porfirio Carreon [address] [place] [phone] Referring Orthopedics 02/10/24 [place] [address] [place], [place] 6956736 Monogram Machine Operator Cardiology 08/03/24 Paper Control Clerk Relationship Specialty Start Date End Date Chema Perry MD [address] [place], [place] 337441 PCP - General Internal Medicine 04/11/22 Stephanie Brush MD [address] [place] [address] Referring Ophthalmology 07/23/23 Porfirio Carreon [address] [phone] Referring Orthopedics 02/10/24 [place] [address] [place], [place] 3542336 Monogram Machine Operator Cardiology 08/03/24 Paper Control Clerk Relationship Specialty Start Date End Date Chema Perry MD [address] [place], [place] 635441 PCP - General Internal Medicine 04/11/22 Stephanie Brush MD [address] [place] [address] Referring Ophthalmology 07/23/23 Porfirio Carreon [address] [phone] Referring Orthopedics 02/10/24 [place] [address] [place] [address] Monogram Machine Operator Cardiology 08/03/24 Paper Control Clerk Relationship Specialty Start Date End Date Chema Perry MD [address] [place], [place] 757241 PCP - General Internal Medicine 04/11/22 Stephanie Brush MD [address] [place], [place] 650181 Referring Ophthalmology 07/23/23 Porfirio Carreon [address] [place] [phone] Referring Orthopedics 02/10/24 [place] [address] [place] [address] Monogram Machine Operator Cardiology 08/03/24 Paper Control Clerk Relationship Specialty Start Date End Date Chema Perry MD [address] [place] [address] PCP - General Internal Medicine 04/11/22 Stephanie Brush MD [address] [place], [place] 249171 Referring Ophthalmology 07/23/23 Porfirio Carreon [address] [place] [phone] Referring Orthopedics 02/10/24 [place] [address] [place] [address] Monogram Machine Operator Cardiology 08/03/24 Paper Control Clerk Relationship Specialty Start Date End Date Chema Perry MD [address] [place] [address] PCP - General Internal Medicine 04/11/22 Stephanie Brush MD [address] [place], [place] 387411 Referring Ophthalmology 07/23/23 Porfirio Carreon [address] [facility] 2 [place] [phone] Referring Orthopedics 02/10/24 [place] [address] [place] [address] Monogram Machine Operator Cardiology 08/03/24 Paper Control Clerk Relationship Specialty Start Date End Date Chema Perry MD [address] [place], [place] 154191 PCP - General Internal Medicine 04/11/22 Stephanie Brush MD [address] [place] [address] Referring Ophthalmology 07/23/23 Porfirio Carreon [address] [phone] Referring Orthopedics 02/10/24 [place] [address] [place] [address] Monogram Machine Operator Cardiology 08/03/24 Paper Control Clerk Relationship Specialty Start Date End Date Chema Perry MD [address] [place] [address] PCP - General Internal Medicine 04/11/22 Stephanie Brush MD [address] [place], [place] 190871 Referring Ophthalmology 07/23/23 Porfirio Carreon [address] [facility] 2 [place] [phone] Referring Orthopedics 02/10/24 [place] [address] [place] [address] Monogram Machine Operator Cardiology 08/03/24 Paper Control Clerk Relationship Specialty Start Date End Date Chema Perry MD [address] [place] [address] PCP - General Internal Medicine 04/11/22 Stephanie Brush MD [address] [place] [address] Referring Ophthalmology 07/23/23 Porfirio Carreon [address] [facility] 2 [place] [phone] Referring Orthopedics 02/10/24 [place] [address] [place] [address] Monogram Machine Operator Cardiology 08/03/24 Paper Control Clerk Relationship Specialty Start Date End Date Chema Perry MD [address] [place] [address] PCP - General Internal Medicine 04/11/22 10/17/24 Chema Perry MD [address] [facility] [address] [place], [place] [address]97- PCP - General Internal Medicine 10/18/24 Stephanie Brush MD [address] [place], [place] 672691 Referring Ophthalmology 07/23/23 Porfirio Carreon DO [address] [place] [phone] Referring Orthopedics 02/10/24 [place] [address] [place] [address] Monogram Machine Operator Cardiology 08/03/24 Paper Control Clerk Relationship Specialty Start Date End Date Chema Perry MD [address] [address] PCP - General Internal Medicine 10/18/24 Stephanie Brush MD [address] [place], [place] 330011 Referring Ophthalmology 07/23/23 Porfirio Carreon DO [address] [facility] 2 [place] [phone] Referring Orthopedics 02/10/24 [place] [address] [place] [address] Monogram Machine Operator Cardiology 08/03/24 Paper Control Clerk Relationship Specialty Start Date End Date Chema Perry MD [address] [facility] [address] [place] [address] PCP - General Internal Medicine 10/18/24 Stephanie Brush MD [address] [place] [address] Referring Ophthalmology 07/23/23 Porfirio Carreon DO [address]373 [facility] 2 [place] [phone] Referring Orthopedics 02/10/24 [place] [address] [place] [address] Monogram Machine Operator Cardiology 08/03/24 Paper Control Clerk Relationship Specialty Start Date End Date Chema Perry MD [address] [address] PCP - General Internal Medicine 10/18/24 Stephanie Brush MD [address] [place] [address] Referring Ophthalmology 07/23/23 Porfirio Carreon DO [address]373 [facility] 2 [place] [phone] Referring Orthopedics 02/10/24 [place] [address] [place] [address] Monogram Machine Operator Cardiology 08/03/24 Paper Control Clerk Relationship Specialty Start Date End Date Chema Perry MD [address] [address] PCP - General Internal Medicine 10/18/24 Stephanie Brush MD [address] [place] [address] Referring Ophthalmology 07/23/23 Porfirio Carreon DO [address] [facility] [address] [place] [phone] Referring Orthopedics 02/10/24 [place] [address] [place] [address] Monogram Machine Operator Cardiology 08/03/24 Paper Control Clerk Relationship Specialty Start Date End Date Chema Perry MD [address] [facility] [address] [place] [address] PCP - General Internal Medicine 10/18/24 Stephanie Brush MD [address] [place] [address] Referring Ophthalmology 07/23/23 Porfirio Carreon DO [address]373 [facility] 2 [place] [phone] Referring Orthopedics 02/10/24 [place] [address] [place] [address] Monogram Machine Operator Cardiology 08/03/24 Paper Control Clerk Relationship Specialty Start Date End Date Chema Perry MD [address] [address] PCP - General Internal Medicine 10/18/24 Stephanie Brush MD [address] [place] [address] Referring Ophthalmology 07/23/23 Porfirio Carreon DO [address] [place] [phone] Referring Orthopedics 02/10/24 [place] [address] [place], [place] 1521636 Monogram Machine Operator Cardiology 08/03/24 Paper Control Clerk Relationship Specialty Start Date End Date Chema Perry MD [address] 827441 PCP - General Internal Medicine 10/18/24 Stephanie Brush MD [address] [place] [address] Referring Ophthalmology 07/23/23 Porfirio Carreon DO [address] [phone] Referring Orthopedics 02/10/24 [place] [address] [place] [address] Monogram Machine Operator Cardiology 08/03/24 Paper Control Clerk Relationship Specialty Start Date End Date Chema Perry MD [address] 380721 PCP - General Internal Medicine 10/18/24 Stephanie Brush MD [address] [place] [address] Referring Ophthalmology 07/23/23 Porfirio Carreon DO [address] [place] [phone] Referring Orthopedics 02/10/24 [place] [address] [place] [address] Monogram Machine Operator Cardiology 08/03/24 Paper Control Clerk Relationship Specialty Start Date End Date Chema Perry MD [address] 810971 PCP - General Internal Medicine 10/18/24 Stephanie Brush MD [address] [place], [place] 368771 Referring Ophthalmology 07/23/23 Porfirio Carreon DO [address] [place] [phone] Referring Orthopedics 02/10/24 [place] [address] [place] [address] Monogram Machine Operator Cardiology 08/03/24 Paper Control Clerk Relationship Specialty Start Date End Date Chema Perry MD [address] 256631 PCP - General Internal Medicine 10/18/24 Stephanie Brush MD [address] [place], [place] 090671 Referring Ophthalmology 07/23/23 Porfirio Carreon DO [address] [place] [phone] Referring Orthopedics 02/10/24 [place] [address] [place] [address] Monogram Machine Operator Cardiology 08/03/24 Paper Control Clerk Relationship Specialty Start Date End Date Chema Perry MD [address] 969931 PCP - General Internal Medicine 10/18/24 Stephanie Brush MD [address] [place], [place] 603851 Referring Ophthalmology 07/23/23 Porfirio Carreon DO [address] [phone] Referring Orthopedics 02/10/24 [place] [address] [place] [address] Monogram Machine Operator Cardiology 08/03/24 Paper Control Clerk Relationship Specialty Start Date End Date Chema Perry MD [address] 864661 PCP - General Internal Medicine 10/18/24 Stephanie Brush MD [address] [place], [place] 483641 Referring Ophthalmology 07/23/23 Porfirio Carreon DO [address] [facility] 2 [place] [phone] Referring Orthopedics 02/10/24 [place] [address] [place] [address] Monogram Machine Operator Cardiology 08/03/24 Team Status: Active Member Role Status Dates Dr. Chema Perry MD Primary Care Provider Active Team Status: Inactive Member Role Status Dates Dr. Chema Perry MD Primary Care Provider Active Start: July 05, 2024 End: July 05, 2024 Dr. Chema Perry MD Referring Provider Active Start: July 05, 2024 End: July 05, 2024 Dr. Christopher Turk DO Attending Provider Active Start: July 05, 2024 End: July 05, 2024 Team Status: Inactive Member Role Status Dates Dr. Chema Perry MD Primary Care Provider Active Start: July 07, 2024 End: July 07, 2024 Dr. Chema Perry MD Attending Provider Active Start: July 07, 2024 End: July 07, 2024 Team Status: Inactive Member Role Status Dates Dr. Chema Perry MD Primary Care Provider Active Start: July 09, 2024 End: July 09, 2024 Dr. Christopher Turk DO Attending Provider Active Start: July 09, 2024 End: July 09, 2024 Team Status: Inactive Member Role Status Dates Dr. Chema Perry MD Primary Care Provider Active Start: July 12, 2024 End: July 12, 2024 Dr. Chema Perry MD Referring Provider Active Start: July 12, 2024 End: July 12, 2024 Dr. Christopher Turk DO Attending Provider Active Start: July 12, 2024 End: July 12, 2024 Team Status: Inactive Member Role Status Dates Dr. Christopher Turk DO Attending Provider Active Start: July 19, 2024 End: July 19, 2024 Team Status: Inactive Member Role Status Dates Dr. Rolando Griffith MD Attending Provider Active S tart: July 19, 2024 End: July 19, 2024 Team Status: Inactive Member Role Status Dates Dr. Susan Emery DO Attending Provider Active Start: September 18, 2024 End: September 18, 2024 Dr. Susan Emery DO Emergency Provider Active Start: September 18, 2024 End: September 18, 2024 Dr. Chema Perry MD Primary Care Provider Active Start: September 18, 2024 End: September 18, 2024 Team Status: Inactive Member Role Status Dates Dr. Chema Perry MD Primary Care Provider Active Start: October 14, 2024 End: October 14, 2024 Dr. Chema Perry MD Attending Provider Active Start: October 14, 2024 End: October 14, 2024 Team Status: Inactive Member Role Status Dates Dr. Chema Perry MD Primary Care Provider Active Start: October 18, 2024 End: October 18, 2024 Dr. Chema Perry MD Attending Provider Active Start: October 18, 2024 End: October 18, 2024 Dr. Chema Perry MD Referring Provider Active Start: October 18, 2024 End: October 18, 2024 Team Status: Inactive Member Role Status Dates Dr. Chema Perry MD Primary Care Provider Active Start: October 22, 2024 End: October 22, 2024 Dr. Chema Perry MD Referring Provider Active Start: October 22, 2024 End: October 22, 2024 Sandra Vincent LIDDER, LIDDER-C Attending Provider Active Start: October 22, 2024 End: October 22, 2024 Team Status: Inactive Member Role Status Dates Dr. Chema Perry MD Primary Care Provider Active Start: November 09, 2024 End: November 09, 2024 Dr. Chema Perry MD Attending Provider Active Start: November 09, 2024 End: November 09, 2024 Dr. Chema Perry MD Referring Provider Active Start: November 09, 2024 End: November 09, 2024 Paper Control Clerk Relationship Specialty Start Date End Date Chema Perry MD [address] [id number] PCP - General Internal Medicine 10/18/24 Stephanie Brush MD [address] [place], [place] [address] Referring Ophthalmology 07/23/23 Porfirio Carreon DO [address] [place] [phone] Referring Orthopedics 02/10/24 [place] [address] [place] [address] Monogram Machine Operator Cardiology 08/03/24 Paper Control Clerk Relationship Specialty Start Date End Date Chema Perry MD [address] [id number] PCP - General Internal Medicine 10/18/24 Stephanie Brush MD [address] [place] [address] Referring Ophthalmology 07/23/23 Porfirio Carreon DO [address] [facility] [address] [place] [phone] Referring Orthopedics 02/10/24 [place] [address] [place] [address] Monogram Machine Operator Cardiology 08/03/24 Paper Control Clerk Relationship Specialty Start Date End Date Chema Perry MD [address] [id number] PCP - General Internal Medicine 10/18/24 Stephanie Brush MD [address] [place] [address] Referring Ophthalmology 07/23/23 Porfirio Carreon DO [address] [place] [phone] Referring Orthopedics 02/10/24 [place] [address] [place] [address] Monogram Machine Operator Cardiology 08/03/24 Paper Control Clerk Relationship Specialty Start Date End Date Chema Perry MD [address] [facility] [address] [place], [place] [id number] PCP - General Internal Medicine 10/18/24 Stephanie Brush MD [address] [place], [place] [id number] Referring Ophthalmology 07/23/23 Porfirio Carreon DO [address] [place] [phone] Referring Orthopedics 02/10/24 [place] [address] [place] [address] Monogram Machine Operator Cardiology 08/03/24 Goals (unrecognized section and content) Goals may be documented in a n alternate sectionGoals may be documented in an alternate sectionGoals may be documented in an alternate sectionGoals may be documented in an alternate sectionGoals may be documented in an alternate sectionGoals may be documented in an alternate sectionGoals may be documented in an alternate sectionGoals may be documented in an alternate sectionGoals may be documented in an alternate sectionGoals may be documented in an alternate sectionGoals may be documented in an alternate sectionGoals may be documented in an alternate sectionGoals may be documented in an alternate sectionGoals may be documented in an alternate sectionGoals may be documented in an alternate sectionGoals may be documented in an alternate sectionGoals may be documented in an alternate sectionGoals may be documented in an alternate sectionGoals may be documented in an alternate sectionGoals may be documented in an alternate sectionGoals may be documented in an alternate sectionGoals may be documented in an alternate sectionGoals may be documented in an alternate sectionGoals may be documented in an alternate sectionGoals may be documented in an alternate sectionGoals may be documented in an alternate sectionGoals may be documented in an alternate sectionGoals may be documented in an alternate sectionGoals may be documented in an alternate section INFORMATION SOURCE (unrecogn ized section and content) DATE CREATED AUTHOR 11/01/2024 [facility] DATE CREATED AUTHOR AUTHOR'S ORGANIZ ATION 12/01/2024 [facility] DATE CREATED AUTHOR AUTHOR'S ORGANIZ ATION 01/30/2025 [facility] DATE CREATED AUTHOR AUTHOR'S ORGANIZ ATION 01/30/2025 [facility] FOR RECORDS PERTAINING TO PATIENTS WHO ARE OR HAVE BEEN ENROLLED IN A CHEMICAL DEPENDENCY/SUBSTANCEABUSE PROGRAM, SOME INFORMATION MAY BE OMITTED. This clinical summary was aggregated from multiple sources. Caution should be exercised in using it in the provision of clinical care. This summary normalizes information from multiple sources, and as a consequence, information in this document may materially change the coding, format and clinical context of patient data. In addition, data may be omitted in some cases. CLINICAL DECISIONS SHOULD BE BASED ON THE PRIMARY CLINICAL RECORDS. [facility]. provides no warranty or guarantee of the accuracy or completeness of information in this document.
--- NOTE | 2025-02-03 05:10 | RAD_ITS ---
PROCEDURE: SHOULDER MIN 2 VIEWS 02/03/2025 REASON FOR EXAM: DISLOCATION TECHNIQUE: SHOULDER MIN 2 VIEWS COMPARISON: 06/07/2024. FINDINGS: Acute oblique displaced fracture of the most distal aspect of the right clavicle. Significant cranial displacement of the proximal aspect of the clavicle of the level of the fracture line. 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 Unremarkable alignment at the level of the acromioclavicular and glenohumeral joints. Mild osteopenia of the visualized bones. Degenerative joint disease. No dislocation is seen. No lytic or blastic bone lesion is noted. RAD/Shoulder min 2 Views IMPRESSION: Acute oblique displaced fracture of the most distal aspect of the right clavicl e. Significant cranial displacement of the proximal aspect of the clavicle of the level of the fracture line. 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 Reading Location: [facility]
--- NOTE | 2025-02-03 05:12 | ED.RN ---
attemptedx2 to start an Iv on the pt and was unsuccessful, pt demanded that someone with more experience needs to try. I want someone else. Srinivas charge nurse made aware and tried x3 and was unsuccessful.Md was made aware and medication routes were changed. While this nurse was in her room she demanded that people at the nurse's station, need to be quite. Pt made aware that she was hearing the doctor and she said she didn't care,tell him to be quiet and that girl needs to stop laughing. Staff made aware of pt's request.
--- NOTE | 2025-02-03 05:48 | CT_ITS ---
PROCEDURE: EXTREMITY UPPER WITHOUT CONTRA 02/03/2025 REASON FOR EXAM: CLAVICLE FRACTURE TECHNIQUE: EXTREMITY UPPER WITHOUT CONTRA Coronal and Sagittal reconstruction series were provided. One or more dose reduction techniques were used (e.g., Automated exposure control, adjustment of the mA and/or kV according to patient size, use of iterative reconstruction technique RADIATION DOSE SUMMARY: CTDlvol: 112.5 mGy DLP: 480.71 mGycm COMPARISON: Radiographs on 02/03/2025. FINDINGS: Acute oblique displaced fracture of the most distal aspect of the right clavicle. Significant cranial displacement of the proximal aspect of the clavicle of the level of the fracture line. Prominent overlying soft tissue edema and swelling. 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 Unremarkable alignment at the level of the acromioclavicular and glenohumeral joints. Mild osteopenia of the visualized bones. Degenerative joint disease. No dislocation is seen. No lytic or blastic bone lesion is noted. Mild subsegmental atelectatic pulmonary changes. CT/Extremity Upper without Contra IMPRESSION: Acute oblique displaced fracture of the most distal aspect of the right clavicl e. Significant cranial displacement of the proximal aspect of the clavicle of the level of the fracture line. Prominent overlying soft tissue edema and swelling. 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 Reading Location[facility]
[2025-02-03 06:06] VITALS: BP 116/63; PULSE 70; RESP 16; O2SAT 93
[2025-02-03] MEDS: diazePAM 5 MG Tablet 2.5 MG PO (06:07)
[2025-02-03 06:47] VITALS: BP 91/57; PULSE 71; RESP 18; O2SAT 77
--- NOTE | 2025-02-03 07:33 | EDS_ITS ---
HPI History of Present Illness Chief Complaint: Upper Extremity Injury Informant: patient and spouse/S.O. Narrative Narrative: Patient is a 84-year-old female with past medical history of hypertension hyperlipidemia hypothyroidism and previous DVT currently on Eliquis. She states she is a night owl and she was getting up off the floor to use the restroom and braced herself against the chair. She states the chair is a small chair and it turned as she went to stand causing her to lose her balance and fall landing on her right shoulder. She denies striking her head or any loss of consciousness. She states she was able to get back up following the fall but noticed that her shoulder was swollen and appeared deformed. She has concern for fracture or dislocation and secondary to this comes in for evaluation. She denies any other injury [facility] Medical History (Updated 02/03/25 @ 07:[address] Isma Bustamante, ) Leg edema Open wound of right lower extremity Contusion of right foot Kyphoscoliosis deformity of spine Bee sting Lumbar contusion Contusion of thoracic wall Pain of left lower extremity Contact with and (suspected) exposure to other viral communicable diseases Contusion of left wrist Left elbow contusion Contusion of left shoulder Scalp contusion Injury of left elbow Injury of left shoulder Presence of stent in coronary artery (~1989) Atherosclerotic heart disease of [place] coronary artery without angina pectoris Essential hypertension Influenza A Health care maintenance Falls frequently Cancer Depression Dementia Walker as ambulation aid Arthritis Bladder disease Low iron DVT (deep venous thrombosis) High cholesterol Restless legs Back pain TIA (transient ischemic attack) Seizures Difficulty swallowing Gastric reflux Non-smoker Asthma Shortness of breath on exertion Hx of echocardiogram History of stress test Hypertension Cardiology follow-up encounter History of heart attack Hypertension aquired autoimmune encephalopathy h/o back surgery Heart disease Dementia Partial complex seizures Home Medications ?Medication ?Instructions ?Recorded ?Last Taken ?Type L.acidophil-L.casei-B.bifid-B.longum-FOS 1 cap PO RAPHAEL Y Supplement 09/02/21 10/05/21 History 2 billion cell-50 mg capsule (Probiotic Blend) aspirin 81 mg tablet,delayed 81 mg PO DAILY 01/10/22 U nknown History release (Adult Aspirin Regimen) d-mannose 500 mg capsule 500 mg PO DAILY 06/07/22 Unk nown History famotidine 10 mg tablet 10 mg PO BID 06/07/22 Unknow n History multivitamin 1 tab PO DAILY 06/07/22 Unkn own History mirabegron 50 mg tablet,extended 50 mg PO QHS Check wi th primary 01/29/23 Unknown History release 24 hr (Myrbetriq) doctor albuterol sulfate 2.5 mg/3 mL 2.5 mg (3 mL) inhalation Q6H PRN 04/07/23 Unknown Rx (0.083 %) solution for nebulization Sob &/Or Wheezing #180 mL syringes BD ECLIPSE 04/11/23 Unknown History latanoprost 0.005 % eye drops 1 drp ophthalmic (eye) D AILY 08/13/23 Unknown History (Xalatan) donepezil 5 mg tablet (Aricept) 10 mg (2 x 5 mg) PO DA ROXI #90 tabs 11/12/23 Unknown Rx nitroglycerin 0.4 mg sublingual 0.4 mg sublingual Q5-1 5M PRN chest 11/12/23 Unknown Rx tablet pain #25 tabs BD Sry/needle eclips See Rx Instructions IM .COMP SANDRA 02/23/24 Unknown Rx #12 ea azelastine 137 mcg (0.1 %) nasal 2 spray intranasal BI D 03/16/24 Unknown History spray cetirizine 10 mg capsule (Zyrtec) 10 mg PO DAILY PRN a llergy symptoms 03/16/24 Unknown History fluticasone propionate 50 1 spray intranasal DAILY Unknown History mcg/actuation nasal spray,suspension (Allergy Relief (fluticasone)) PEP device #1 ea 04/06/24 Unknown Rx apixaban 5 mg tablet (Eliquis) 5 mg PO BID #180 tabs 1 Unknown Rx atorvastatin 40 mg tablet See Rx Instructions .Route 1 Unknown Rx .COMPLEX #90 tabs levothyroxine 50 mcg tablet 50 mcg PO DAILY Thyroid #9 0 tabs 06/08/24 Unknown Rx memantine 10 mg tablet 10 mg PO BID Alzheimer's #18 0 tabs 06/08/24 Unknown Rx pramipexole 0.5 mg tablet 0.5 mg PO BID #180 tabs 05/19 10/11 Unknown Rx vortioxetine 20 mg tablet 20 mg PO DAILY DEPRESSION #9 0 tabs 06/08/24 Unknown Rx (Trintellix) brimonidine 0.2 % eye drops drp ophthalmic (eye) QHS 0 10/14/24 Unknown History olopatadine 0.6 % nasal spray 2 spray intranasal DAILY 10/14/24 Unknown History pantoprazole 40 mg tablet,delayed 40 mg PO DAILY 10/14 Unknown History release potassium chloride 20 mEq 20 meq PO DAILY 10/14/24 Unk nown History tablet,extended release(part/cryst) (Klor-Con M) furosemide 20 mg tablet 10 mg (1/2 x 20 mg) PO DAILY PRN 11/23/24 Unknown Rx edema #30 tabs lacosamide 100 mg tablet (Vimpat) 100 mg PO BID #180 t abs 12/20/24 Unknown Rx cyanocobalamin (vitamin B-12) 1,000 mcg IM QMONTH #10 mL 01/24/25 Unknown Rx 1,000 mcg/mL injection solution denosumab 60 mg/mL subcutaneous 60 mg subcut [id number] #1 mL 01/24/25 Unknown Rx syringe (Prolia) diazepam 2 mg tablet (Valium) 2 mg PO TID PRN Muscle p ain/spasm 02/03/25 Unknown Rx 5 days #15 tabs gabapentin 100 mg capsule 300 mg PO QHS restless leg(s ) 02/03/25 Unknown History hydromorphone 2 mg tablet 2 mg PO Q6H PRN pain 5 days #20 02/03/25 Unknown Rx (Dilaudid) tabs Allergy/AdvReac Type Severity Reaction Status Date / Time doxycycline Allergy Mild Vomiting Verified 02/03/25 04:07 acetaminophen (From Allergy Other Verified 02/03/25 04:07 Darvocet-N) lamotrigine (From Lamictal) Allergy Lip Verified 02/03/25 04:07 Swelling moxifloxacin HCl (From Allergy Other Verified 02/03/25 04:07 Avelox) propoxyphene napsylate (From Allergy Other Verified 02/03/25 04:07 Darvocet-N) hydrocodone AdvReac Severe Confusion Verified 02/03/25 04:07 oxycodone (From Percocet) AdvReac Severe Confusion Verified 02/03/25 04:07 zolpidem tartrate (From AdvReac Other Verified 02/03/25 04:07 Ambien) Family History (Reviewed 10/22/24 @ 14:32 by Sandra Vincent X RAY CONTROL EQUIPMENT REPAIRER, X RAY CONTROL EQUIPMENT REPAIRER-C) Mother CVA (cerebral vascular accident) Arthritis Father Myocardial infarction, Onset Age: 40 Alcoholism Hypertension Sister Anemia Grandmother Bowel disease Osteoporosis Ovarian cancer Surgical History History of repair of hiatal hernia History of cholecystectomy History of hernia surgery Presence of coronary angioplasty implant and graft (~1989) History of hammer toe correction History of lumbar laminectomy History of carpal tunnel release History of tonsillectomy and adenoidectomy History of lumpectomy of left breast History of cardiac catheterization History of esophagogastroduodenoscopy (EGD) Hx of colonoscopy Hx of ventral hernia repair Hx of cataract extraction History of laryngoscopy History of appendectomy H/O kyphoplasty Social History household members: spouse housing: house Smoking Status: Never smoker alcohol intake: current alcohol intake frequency: a few times a week Alcohol type: wine substance use type: does not use caffeine: Yes Type: coffee Number of servings: 1 what type of physical activity do you participate in: other details: PT 3x w eekly frequency: 3-4 times per week do you feel safe at home: Yes ROS ROS ED Constitutional Constitutional ED: Denies chills or fever(s) Eyes Eyes: Denies blurry vision or change in vision ENT ENT ED: Denies sore throat Cardiovascular Cardiovascular: Reports other Details: Negative syncope ; Denies chest pain, palpitations or racing heartbeat Respiratory/Chest Respiratory/Chest: Denies cough or dyspnea Gastrointestinal Gastrointestinal: Denies abdominal pain, diarrhea, nausea or vomiting Musculoskeletal Musculoskeletal: Reports other Details: Positive right shoulder pain ; Denies back pain or neck pain Integumentary Denies Abrasions Neurologic Neurologic: Denies headache(s) or paresthesias Hematologic/Lymphatic Hematologic/Lymphatic: Reports easy bleeding and easy bruising EXAM Physical Exam Const Vital Signs: 02/03/25 04:07 02/03/25 06:06 02/03/25 06:47 Temperature 97.9 F Temperature Source Oral Pulse Rate 67 70 71 Respiratory Rate 18 16 18 Blood Pressure 176/86 H 116/63 91/57 L Blood Pressure Mean 116 80 68 Pulse Ox 97 93 77 Oxygen Delivery Method Room Air Room Air Room Air Positive well nourished and well developed General Appearance ED: well developed HEENT HEENT Narrative: Normocephalic atraumatic No signs of depressed or basilar skull fracture Eyes PERRL and EOMs intact bilaterally Neck full ROM and supple Neck Narrative: No bony deformity or step-off of the cervical spine no midline tenderness to palpation Chest Wall palpation of chest normal Resp normal respiratory effort and clear to auscultation bilaterally Cardio regular rate and regular rhythm Back/Spine Back/Spine Narrative: Patient has severe thoracic kyphosis which is chronic in nature without midline tenderness to the thoracic or lumbar spine noted Extremity Extremity Narrative: Pelvis is stable and there is no shortening or external rotation of either lower extremity Right upper extremity is neurovascularly intact; AIN/PIN are intact and normal. There is deformity of the right shoulder/distal clavicle noted. Active and passive range of motion is severely limited secondary to pain. There is no obvious joint effusion. Negative sulcus sign Remainder of the exam is normal Compartments are soft and compressible going against compartment syndrome Neuro oriented x3 and CN's II-XII intact bilaterally Sensorium / Orientation: alert Psych mental status grossly normal Skin Skin Narrative: Ecchymosis along the right shoulder consistent with recent trauma No skin puncture/open fracture noted MDM MDM MDM Narrative Medical decision making narrative: Patient arrived to the ER hypertensive but otherwise with stable vitals. She reported a mechanical fall and therefore I had low concern for cardiac or syncope workup. She is on a blood thinner but she did not strike her head and she does not have headache change in vision nausea or vomiting and there for my concern for a underlying traumatic subarachnoid or subdural hemorrhage is low I do not feel the need for head CT. With concern for fracture versus dislocation to the right shoulder and x-ray was obtained. This showed a distal clavicle fracture without obvious dislocation. In order to ensure that there is no associated missed fracture or dislocation based on her advanced age and frailty I did elect to perform a CT scan of the shoulder region. This confirmed fracture without dislocation. The case was then discussed with orthopedic surgeon Dr. Quintanilla. He agrees that as the patient is closed and neurovascularly intact there is no need for emergent intervention. He recommends treatment with simple sling and can see the patient as an outpatient to discuss further treatment options. Plan of care was discussed with patient and and they are agreeable to it and therefore should be discharged at this time History & Record Review Discussion w/independent historian: Patient and Significant other Radiography Diagnostic Testing: Clinical Impression(s) from Imaging Studies Shoulder X-Ray 02/03/25 05:10 IMPRESSION: Acute oblique displaced fracture of the most distal aspect of the right clavicle. Significant cranial displacement of the proximal aspect of the clavicle of the level of the fracture line. 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 Reading Location: [place] [id number] X-ray of the right shoulder as interpreted by the emergency medicine physician reveals a fracture to the distal aspect of the right clavicle with cranial displacement. No obvious joint effusion or shoulder dislocation Discharge Plan Triage Chief Complaint: Upper Extremity Injury ED Provider: Isma Bustamante Dx/Rx/DC Orders Clinical Impression: Closed fracture of right clavicle, Essential hypertension, Hyperlipidemia, Hypothyroidism, Current use of mcc anticoagulation Instructions: ED Fracture, Clavicle Prescriptions: New diazepam [Valium] 2 mg tablet 2 mg PO TID PRN (Reason: Muscle pain/spasm) 5 Days Qty: 15 0RF hydromorphone [Dilaudid] 2 mg tablet 2 mg PO Q6H PRN (Reason: pain) 5 Days Qty: 20 0RF No Action Myrbetriq 50 mg tablet extended release 24 hr 50 mg PO QHS aspirin [Adult Aspirin Regimen] 81 mg tablet,delayed release (DR/EC) 81 mg PO DAILY multivitamin Tablet 1 tab PO DAILY famotidine 10 mg tablet 10 mg PO BID d-mannose 500 mg capsule 500 mg PO DAILY albuterol sulfate 2.5 mg /3 mL (0.083 %) solution for nebulization 2.5 mg inhalation Q6H PRN (Reason: Sob &/Or Wheezing) Qty: 180 6RF latanoprost [Xalatan] 0.005 % drops 1 drp ophthalmic (eye) DAILY nitroglycerin 0.4 mg tablet, sublingual 0.4 mg sublingual Q5-15M PRN (Reason: chest pain) Qty: 25 3RF Rx Instructions: do not exceed 3 doses per episode donepezil [Aricept] 5 mg tablet 10 mg PO DAILY Qty: 90 3RF azelastine 137 mcg (0.1 %) spray,non-aerosol 2 spray intranasal BID Patient Comments: [NO ORIGINAL SIG] fluticasone propionate [Allergy Relief (fluticasone)] 50 mcg/actuation spray,suspension 1 spray intranasal DAILY Rx Instructions: administer into each nostril Zyrtec 10 mg capsule 10 mg PO DAILY PRN (Reason: allergy symptoms) pantoprazole 40 mg tablet,delayed release (DR/EC) 40 mg PO DAILY potassium chloride [Klor-Con M20] 20 mEq tablet,ER particles/crystals 20 meq PO DAILY brimonidine 0.2 % drops ophthalmic (eye) QHS olopatadine 0.6 % spray,non-aerosol 2 spray intranasal DAILY Patient Comments: [NO ORIGINAL SIG] Probiotic Blend 2 billion cell-50 mg Capsule 1 cap PO DAILY gabapentin 100 mg capsule 300 mg PO QHS (DME) syringes BD ECLIPSE See Rx Instructions .Route .MEDSUPPLY Rx Instructions: Bd SYR/leticia Eclipse 3ml #5708 BD Sry/needle eclips See Rx Instructions IM .COMPLEX Qty: 12 0RF Rx Instructions: intramuscularly; 3ml #5638 uses 1 a month (DME) PEP device See Rx Instructions .ROUTE .MEDSUPPLY Qty: 1 0RF Rx Instructions: with training atorvastatin 40 mg tablet See Rx Instructions .ROUTE .COMPLEX Qty: 90 3RF Dose Instruction: TAKE 1 TABLET DAILY Rx Instructions: TAKE 1 TABLET DAILY Eliquis 5 mg tablet 5 mg PO BID Qty: 180 3RF levothyroxine 50 mcg tablet 50 mcg PO DAILY Qty: 90 3RF memantine 10 mg tablet 10 mg PO BID Qty: 180 3RF pramipexole 0.5 mg tablet 0.5 mg PO BID Qty: 180 3RF Trintellix 20 mg tablet 20 mg PO DAILY Qty: 90 3RF furosemide 20 mg tablet 10 mg PO DAILY PRN (Reason: edema) Qty: 30 0RF lacosamide [Vimpat] 100 mg tablet 100 mg PO BID Qty: 180 3RF cyanocobalamin (vitamin B-12) 1,000 mcg/mL solution 1,000 mcg IM QMONTH Qty: 10 0RF Rx Instructions: Can be administered at [facility] Prolia 60 mg/mL syringe 60 mg subcut [id number] Qty: 1 5RF Primary Care Provider: Yokasta Perry Referrals: Yokasta Perry MD [Primary Care Provider] - Jean Claude Quintanilla DO [Med Staff - Active Staff] - (Clavicle fracture) Activity Restrictions/Additional Instructions: Wear sling for stabilization of your fractured clavicle. Follow-up with Dr. Quintanilla for repeat evaluation early next week and to discuss further treatment options. Return to the ER should you have any further concerns Print Language: Frisian Disposition Disposition: Home, Self Care
[2025-02-03 08:00] VITALS: BP 101/62; PULSE 77; RESP 16; O2SAT 98
[2025-02-03 08:15] VITALS: BP 101/62; PULSE 77; RESP 16; TEMP 36.3; O2SAT 98
== END 2025-02-03 08:16 | disposition home or self-care (01) ==
PROVIDERS: Emergency Provider Emergency Medicine; PCP Internal Medicine; Visit Provider Emergency Medicine
DX: S42.031A Displaced fracture of lateral end of right clavicle, initial encounter for closed fracture (principal); I25.10 Atherosclerotic heart disease of native coronary artery without angina pectoris; W07.XXXA Fall from chair, initial encounter; I10 Essential (primary) hypertension; E78.5 Hyperlipidemia, unspecified; Z86.718 Personal history of other venous thrombosis and embolism; E03.9 Hypothyroidism, unspecified; Z79.01 Long term (current) use of anticoagulants; Z86.73 Personal history of transient ischemic attack (TIA), and cerebral 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
CPT/HCPCS: 73030; 73200; 96372; 99284; A4216; J2405

== ENCOUNTER 2025-02-06 07:29 | Observation (INO) | payer MEDICARE, OTHER, SELFPAY ==
[2025-02-06 07:30] VITALS: BP 119/80; PULSE 74; RESP 18; TEMP 37; O2SAT 98; BMI 25.4
--- NOTE | 2025-02-06 07:31 | EX.ED.UPPERE ---
HPI History of Present Illness Chief Complaint: Upper Extremity Injury [facility] Medical History Leg edema Open wound of right lower extremity Contusion of right foot Kyphoscoliosis deformity of spine Bee sting Lumbar contusion Contusion of thoracic wall Pain of left lower extremity Contact with and (suspected) exposure to other viral communicable diseases Contusion of left wrist Left elbow contusion Contusion of left shoulder Scalp contusion Injury of left elbow Injury of left shoulder Presence of stent in coronary artery (~1989) Atherosclerotic heart disease of [place] coronary artery without angina pectoris Essential hypertension Influenza A Health care maintenance Falls frequently Cancer Depression Dementia Walker as ambulation aid Arthritis Bladder disease Low iron DVT (deep venous thrombosis) High cholesterol Restless legs Back pain TIA (transient ischemic attack) Seizures Difficulty swallowing Gastric reflux Non-smoker Asthma Shortness of breath on exertion Hx of echocardiogram History of stress test Hypertension Cardiology follow-up encounter History of heart attack Hypertension aquired autoimmune encephalopathy h/o back surgery Heart disease Dementia Partial complex seizures Home Medications ?Medication ?Instructions ?Recorded ?Last Taken ?Type L.acidophil-L.casei-B.bifid-B.longum-FOS 1 cap PO DAILY Supplement 09/02/21 02/05/25 History 2 billion cell-50 mg capsule (Probiotic Blend) aspirin 81 mg tablet,delayed 81 mg PO DAILY 01/10/22 02/05/25 History release (Adult Aspirin Regimen) d-mannose 500 mg capsule 500 mg PO DAILY 06/07/22 02/05/25 History famotidine 10 mg tablet 10 mg PO BID 06/07/22 02/05/25 History multivitamin 1 tab PO DAILY 06/07/22 02/05/25 History mirabegron 50 mg tablet,extended 50 mg PO QHS Check with primary 01/29/23 02/05/25 History release 24 hr (Myrbetriq) doctor albuterol sulfate 2.5 mg/3 mL 2.5 mg (3 mL) inhalation Q6H PRN 04/07/23 Unknown Rx (0.083 %) solution for nebulization Sob &/Or Wheezing #180 mL syringes BD ECLIPSE 04/11/23 Unknown History latanoprost 0.005 % eye drops 1 drp ophthalmic (eye) DAILY 08/13/23 02/05/25 History (Xalatan) nitroglycerin 0.4 mg sublingual 0.4 mg sublingual Q5-15M PRN chest 11/12/23 Unknown Rx tablet pain #25 tabs BD Sry/needle eclips See Rx Instructions IM .COMPLEX 02/23/24 Unknown Rx #12 ea azelastine 137 mcg (0.1 %) nasal 2 spray intranasal BID 03/16/24 Unknown History spray cetirizine 10 mg capsule (Zyrtec) 10 mg PO DAILY PRN allergy symptoms 03/16/24 Unknown History fluticasone propionate 50 1 spray intranasal DAILY 03/16/24 02/05/25 History mcg/actuation nasal spray,suspension (Allergy Relief (fluticasone)) PEP device #1 ea 04/06/24 Unknown Rx apixaban 5 mg tablet (Eliquis) 5 mg PO BID #180 tabs 06/08/24 02/05/25 Rx atorvastatin 40 mg tablet See Rx Instructions .Route 06/08/24 02/05/25 Rx .COMPLEX #90 tabs levothyroxine 50 mcg tablet 50 mcg PO DAILY Thyroid #90 tabs 06/08/24 02/05/25 Rx memantine 10 mg tablet 10 mg PO BID Alzheimer's #180 tabs 06/08/24 02/05/25 Rx pramipexole 0.5 mg tablet 0.5 mg PO BID #180 tabs 06/08/24 02/05/25 Rx vortioxetine 20 mg tablet 20 mg PO DAILY DEPRESSION #90 tabs 06/08/24 02/05/25 Rx (Trintellix) brimonidine 0.2 % eye drops 1 drp ophthalmic (eye) QHS 10/14/24 02/05/25 History olopatadine 0.6 % nasal spray 2 spray intranasal DAILY 10/14/24 Unknown History pantoprazole 40 mg tablet,delayed 40 mg PO DAILY 10/14/24 02/05/25 History release potassium chloride 20 mEq 20 meq PO DAILY 10/14/24 02/05/25 History tablet,extended release(part/cryst) (Klor-Con M) furosemide 20 mg tablet 10 mg (1/2 x 20 mg) PO DAILY PRN 11/23/24 Unknown Rx edema #30 tabs lacosamide 100 mg tablet (Vimpat) 100 mg PO BID #180 tabs 12/20/24 02/05/25 Rx cyanocobalamin (vitamin B-12) 1,000 mcg IM QMONTH #10 mL 01/24/25 Unknown Rx 1,000 mcg/mL injection solution denosumab 60 mg/mL subcutaneous 60 mg subcut [id number] #1 mL 01/24/25 Unknown Rx syringe (Prolia) diazepam 2 mg tablet (Valium) 2 mg PO TID PRN Muscle pain/spasm 02/03/25 02/05/25 Rx 5 days #15 tabs gabapentin 100 mg capsule 300 mg PO QHS restless leg(s) 02/03/25 02/05/25 History hydromorphone 2 mg tablet 2 mg PO Q6H PRN pain 5 days #20 02/03/25 02/06/25 Rx (Dilaudid) tabs donepezil 10 mg tablet 10 mg PO DAILY 02/06/25 02/05/25 History Allergy/AdvReac Type Severity Reaction Status Date / Time doxycycline Allergy Mild Vomiting Verified 02/06/25 07:30 acetaminophen (From Allergy Other Verified 02/06/25 07:30 Darvocet-N) lamotrigine (From Lamictal) Allergy Lip Verified 02/06/25 07:30 Swelling moxifloxacin HCl (From Allergy Other Verified 02/06/25 07:30 Avelox) propoxyphene napsylate (From Allergy Other Verified 02/06/25 07:30 Darvocet-N) hydrocodone AdvReac Severe Confusion Verified 02/06/25 07:30 oxycodone (From Percocet) AdvReac Severe Confusion Verified 02/06/25 07:30 zolpidem tartrate (From AdvReac Other Verified 02/06/25 07:30 Ambien) Family History Mother CVA (cerebral vascular accident) Arthritis Father Myocardial infarction, Onset Age: 40 Alcoholism Hypertension Sister Anemia Grandmother Bowel disease Osteoporosis Ovarian cancer Surgical History History of repair of hiatal hernia History of cholecystectomy History of hernia surgery Presence of coronary angioplasty implant and graft (~1989) History of hammer toe correction History of lumbar laminectomy History of carpal tunnel release History of tonsillectomy and adenoidectomy History of lumpectomy of left breast History of cardiac catheterization History of esophagogastroduodenoscopy (EGD) Hx of colonoscopy Hx of ventral hernia repair Hx of cataract extraction History of laryngoscopy History of appendectomy H/O kyphoplasty Social History household members: spouse housing: house Smoking Status: Never smoker alcohol intake: current alcohol intake frequency: a few times a week Alcohol type: wine substance use type: does not use caffeine: Yes Type: coffee Number of servings: 1 what type of physical activity do you participate in: other details: PT 3x weekly frequency: 3-4 times per week do you feel safe at home: Yes MDM MDM MDM Narrative Medical decision making narrative: HISTORY OF PRESENT ILLNESS: Chief complaint: Upper extremity injury 84-year-old female history as below presents with increased pain in right shoulder blade and collarbone. The history is provided by the patient and her . They states she did have some minor trauma to the right arm a day and a half ago. She did not fall however she did bump her arm against the wall. The also states the patient has been having trouble getting around secondary to pain and diffuse weakness. They state they follow-up with orthopedics on Friday. Notes they saw Dr. Quintanilla in his office. They stated he did not have any acute surgical intervention recommendations. They state he further recommended she follow-up with outside orthopedic group called [facility] in [place]. REVIEW OF SYSTEMS: Pertinent positives: Shoulder pain Pertinent negatives: GROSS, CP PHYSICAL EXAM: Nursing triage notes reviewed, Vital signs reviewed Constitutional: please see mdm HENT: MMM Eyes: Pupils equal round and reactive to light, Extraocular muscles intact Neck: No stridor, no JVD, full neck ROM Lungs: Clear to auscultation, No wheezing or rales. No increased work of breathing, no conversational dyspnea, no accessory muscle use, no nasal flaring. No respiratory distress noted Heart: Regular rate and rhythm, No murmurs, No rubs and No gallops, 2+ distal pulses (radial, femoral, posterior tibial) in all extremities Abdomen: Soft, there is no tenderness, rigidity, rebound or guarding, no obvious peritoneal signs, no palpable pulsatile abdominal masses, no auscultated abdominal bruit : No CVAT Extremities: Obvious deformity to right distal clavicle, TTP over clavicle and proximal humerus. Neuro: Intact 5/5 strength with ok sign (median), intact finger abduction (ulnar) intact wrist extension (radial n). Intact sensation in the radial, ulnar, and median nerve distributions. Skin: significant ecchymosis noted over right shoulder, right upper arm. No sign of open fracture MEDICAL DECISION MAKING: Chief Complaint: please see HPI External records reviewed: Reviewed prior imaging studies. Reviewed x-ray and CT scan of the clavicle/upper extremity from 02/03/2025. These images were noted to show significantly cranially displaced distal clavicle fracture. Orthopedic was consulted did not recommend emergent intervention. Patient was discharged on oral Dilaudid and Valium. Factors affecting care: CAD, osteoporosis, GERD, NC, PE (on Eliquis), hyperlipidemia, vascular dementia Social determinants of health: Elderly History obtained from others: none Consults: Orthopedic Surgery (Dr. Quintanilla) - reviewed the patients hx, PE, imaging. Recommended consulted Dr. Bustos as he is a shoulder specialist. Spoke with Dr. Burleson - recommended not operating, no a good surgical candidate but would see her here. MDM Narrative: The patient was initially hemodynamically stable, afebrile and nontoxic-appearing. Exam with after mentioned clavicle deformity and injury I considered the following differential diagnosis: Worsening fracture/dislocation of the right clavicle/right shoulder ALL IMAGES (IF OBTAINED) HAVE BEEN PERSONALLY REVIEWED AND INTERPRETED BY MYSELF. CBC shows no leukocytosis, shows Moderate anemia, no thrombocytopenia CMP without evidence of acute kidney injury, significant electrolyte abnormality, anion gap to suggest end organ hypo-perfusion, no evidence of metabolic acidosis with a normal bicarbonate, no evidence of hepatobiliary obstructive pathology. X-ray of the right clavicle, right humerus read reviewed personally myself. Shows a cranially displaced right clavicular fracture. Humerus x-ray was read by me showed no evidence of obvious fracture dislocation. Agrees to my interpretation. The patient and/or family, caregivers express understanding. The patient and/or family, caregivers agrees with the plan. Shared decision making: I will have a discussion with the patient and or visitors regarding risk/benefits of further testing or admission. They will be made aware of of the risk/benefits inherent in this decision they will be given the opportunity to voice understanding. Total critical care time today provided was at least 0 minutes. This excludes separately billable procedures. Critical care time (if documented) is secondary to the patient having high probability of clinically significant/life threatening deterioration in the patient's condition which required my urgent intervention. Impression: 1. Right clavicle fracture 2. Anemia 3. History of balance difficulties Dispo: [] This note was generated with [employer] dictation software. It may contain incorrect words, spelling, and punctuation that were not noted in review of the chart prior to signing. Discharge Plan Disposition Disposition: Acute Care Hospital [facility] Discharge Date/Time: 02/06/25 11:15
--- NOTE | 2025-02-06 07:53 | RAD_ITS ---
PROCEDURE: CLAVICLE 02/06/2025 REASON FOR EXAM: PAIN TECHNIQUE: CLAVICLE, right COMPARISON: CT right upper extremity 02/03/2025. FINDINGS: Bones: No significant change in the known acute obliquely displaced fracture of the distal right clavicle. Chronic degenerative changes of the humeral head. Joints: Degenerative changes of the right glenohumeral joint. Soft tissues: Soft tissue swelling. RAD/Clavicle IMPRESSION: No obvious change in the known acute, displaced right distal clavicular fractur e. Reading Location: [id number]
--- NOTE | 2025-02-06 07:53 | RAD_ITS ---
PROCEDURE: HUMERUS MIN 2 VIEWS 02/06/2025 REASON FOR EXAM: RIGHT ARM PAIN TECHNIQUE: HUMERUS MIN 2 VIEWS, right COMPARISON: Right shoulder radiographs 02/03/2025. FINDINGS: Bones: No acute fracture or aggressive osseous lesion. The known right distal clavicular fracture is not included in the field of view. Joints: Normal alignment. Moderate degenerative changes. Soft tissues: Soft tissues are unremarkable. RAD/Humerus min 2 Views IMPRESSION: NO ACUTE FRACTURE OR DISLOCATION. Reading Location: [id number]
--- OUTSIDE RECORDS SUMMARY | 2025-02-06 07:58 | XMS RPT_ITS | CCD ---
Author Organization [facility] CliniSyn[facility] Care Team Providers Care Curator [employer] Name Role Phone Parvin COHEN, Bryant Sandoval Primary Care Provider [phone] Richard, Dr. Arun Muller Primary Care Provider Richard, Dr. Arun Muller Referring Provider Melisa CAKE PULLER, CAKE PULLER-C Sandra Attending Provider [phone] Dr. Kinza Laughlin Emergency Provider Dr. Luh Sosa Attending Provider Unavailable Dr. Luh Sosa Admit Provider Unavailable Dr. Jean Claude Macedo Attending Provider Dr. Jean Claude Macedo Other Provider Dr. Vincent Morris Emergency Provider Dr. Jean Claude Macedo Admit Provider Dr. Demetrius Duffy Attending Provider Dr. Demetrius Duffy Other Provider Dr. Malachi Caal Attending Provider Richard, Dr. Arun Muller Primary Care Provider Richard, Dr. Arun Muller Referring Provider Melisa CAKE PULLER, CAKE PULLER-C Sandra Attending Provider Richard, Dr. Arun Muller Primary Care Provider Richard, Dr. Arun Muller Referring Provider Dr. Malachi Caal Attending Provider Melisa CAKE PULLER, CAKE PULLER-C Sandra Referring Provider [phone] Chema Perry MD Primary Care Provider [phone] Dr. Arun Ramos Chi Primary Care Provider Charity Dove Attending Provider Unavailable Dr. Chema Perry Attending Provider [phone] Dr. Arun Ramos Chi Referring Provider Dr. Malachi Caal Attending Provider Dr. Chema Perry Primary Care Provider Dr. Chema Perry Referring Provider [phone] Dr. James Elizabeth Attending Provider Melisa BROWN, BURAK Flores Attending Provider Adrian VALENCIA, PA Phillip Attending Provider Forrest Ortiz Attending Provider Unavailable Dr. Chema Perry Attending Provider 1([facility]) Dr. Rolando Griffith Attending Provider 1([facility])[phone] Sarbjit Kraus Attending Provider [phone] Dr. Chema Perry Primary Care Provider Dr. Chema Perry Primary Care Provider Dr. Chema Perry Attending Provider [phone] Lashonda VALENCIA, ERIK Vaughan Attending Provider Dr. Chema Perry Primary Care Provider Dr. Chema Perry Referring Provider 1([facility]) Chema Perry MD Primary Care Provider [phone] Dr. Chema Perry Primary Care Provider Dr. Chema Perry Referring Provider 1([facility])347 Lashonda VALENCIA PA Jd Vaughan Attending Provider Dr. Chema [...] Referring Provider Dr. Rolando Griffith Attending Provider [phone] ERIK Alonso Attending Provider Dr. Chema Perry Attending Provider Melisa CAKE PULLER, CAKE PULLER-C Sandra Attending Provider [phone] Dr. Chema Perry Primary Care Provider Dr. Chema Perry Attending Provider Dr. Chema Perry Referring Provider ERKI Alonso Attending Provider ERIK Jamison Attending Provider Dr. Rolando Griffith Attending Provider ERIK Alonso Attending Provider Roseann VALENCIA, PA Jerri Vaughan Referring Provider Dr. Chema Perry Primary Care Provider Dr. Chema Perry Referring Provider Lashonda VALENCIA PA Jd Vaughan Attending Provider Melisa BROWN, CAKE PULLER-C Sandra Attending Provider Roseann VALENCIA, PA Jerri Vaughan Attending Provider Dr. Chema Perry Attending Provider Dr. Rolando Griffith Attending Provider Roseann VALENCIA, PA Jerri Vaughan Referring Provider Chema Perry MD Primary Care Provider Stephanie Brush Unavailable Dr. Chema Perry Primary Care Provider Dr. Chema Perry Attending Provider Dr. Chema Perry Referring Provider Dr. Malachi Caal Attending Provider Dr. Chema Perry Primary Care Provider Dr. Chema Perry Attending Provider Dr. Chema Perry Referring Provider Dr. Malachi Caal Attending Provider Kings BROWN, CAKE PULLER-C Tamiko Attending Provider Dr. Chema Perry Primary Care Provider Dr. Chema Perry Attending Provider Dr. Vincent Smart Attending Provider Chema Perry MD Primary Care Provider [phone] Porfirio Carreon Unavailable Stephanie Brush MD Unavailable Sourav Marcial MD Unavailable Chema Perry MD Primary Care Provider Porfirio Carreon DO Unavailable Chace COHEN, Chema Vaughan Primary Care Provider Chace COHEN, Dr. Bear Primary Care Provider Chace COHEN, Dr. Bear Referring Provider Dr. Christopher Turk DO Attending Provider hCace COHEN, Dr. Bear Attending Provider Nacho COHEN, Dr. Marshall Attending Provider Dr. Susan Emery DO Attending Provider [phone] Dr. Susan Emery DO Emergency Provider Melisa BROWN-CSandra Attending Provider Burke NAVARRETE, Dr. White Attending Provider Chace COHEN, Dr. Bear Primary Care Provider Chace COHEN, Dr. Bear Attending Provider Chace COHEN, Dr. Bear Referring Provider LAISHA LIZARRAGA Referring Unavailable CHEMA PERRY M Primary Care Unavailable ZGOJAIMESKHakeem, LAISHA Referring Unavailable CHEMA PERRY M Primary Care Unavailable ZGOJAIMESKI, LAISHA Referring Unavailable CHEMA PERRY Primary Care Unavailable ZLESLIEI, LAISHA Referring Unavailable CHACECHEMA SUAL M Primary Care Unavailable ZGODINSKI, LAISHA Referring Unavailable CHACE, CHEMA M Primary Care Unavailable DE PAZ, ANILA Attending Unavailable CHEMA PERRY M Primary Care Unavailable CHACECHEMA Primary Care Unavailable LI, ANG Attending Unavailable LI, ANG Referring Unavailable ZCRISTI, LAISHA Attending Unavailable ZCRISTI, LAISHA Referring Unavailable CHACE, CHEMA M Primary Care Unavailable DE PAZ, ANILA Referring Unavailable CHACECHEMA M Primary Care Unavailable DE PAZ, ANILA Referring Unavailable CHACECHEMA M Primary Care Unavailable DE PAZ, ANILA Attending Unavailable DE PAZ, ANILA Referring Unavailable CHACE, CHEMA M Primary Care Unavailable ESTELLE HODGES Attending Unavailabl e CHACE, CHEMA M Primary Care Unavailable DUNG, QARAB Attending Unavailable CHACE, CHEMA M Primary Care Unavailable YOUNG LORD Attending Unavailable CHACE, CHEMA M Primary Care Unavailable DENICE JACOBS Referring Unavailable CHACE, CHEMA M Primary Care Unavailable HUMZA CAMEJO Attending Unavailable CHACE, CHEMA M Primary Care Unavailable DENICE JACOBS Attending Unavailable DENICE JACOBS Referring Unavailable CHACE, CHEMA M Primary Care Unavailable HUMZA CAMEJO Attending Unavailable CHACE, CHEMA M Primary Care Unavailable [facility], ANILA Referring Unavailable [facility], ANILA Attending Unavailable CHACE, CHEMA M Primary Care Unavailable CHRISTOPHER FULTON Attending Unavailable [facility], ANILA Referring Unavailable CHACE, CHEMA M Primary Care Unavailable DUNG, QARAB Referring Unavailable CHACE, CHEMA M Primary Care Unavailable [facility], [facility] Attending Unavailable CHACE, CHEMA M Primary Care Unavailable DUNG, QARAB Referring Unavailable CHACE, CHEMA M Primary Care Unavailable [facility], ANILA Referring Unavailable DUNG, QARAB Attending Unavailable CHACE, CHEMA M Primary Care Unavailable [facility], ANILA Referring Unavailable CHACE, CHEMA M Primary Care Unavailable [facility], ANILA Referring Unavailable [facility], ANILA Admitting Unavailable [facility], [facility] Attending Unavailable CHACE, CHEMA M Primary Care Unavailable [facility], [facility] Referring Unavailable CHACE, CHEMA M Primary Care Unavailable IZABELLA QUILES Attending Unavailable SUSAN SRINIVASAN Referring Unavailable CHACE, CHEMA M Primary Care Unavailable QUEENER, DENICE Referring Unavailable CHACE, CHEMA M Primary Care Unavailable DENICE JACOBS Attending Unavailable CHACE, CHEMA M Primary Care Unavailable LAISHA LIZARRAGA Referring Unavailable LAISHA LIZARRAGA Attending Unavailable CHACE, CHEMA M Primary Care Unavailable [facility], ANILA Referring Unavailable CHACE, CHEMA M Primary Care Unavailable [facility], [facility] Attending Unavailable SUSAN SQUIRES Referring Unavailable CHACE, CHEMA M Primary Care Unavailable [facility], ANILA Referring Unavailable CHACE, CHEMA M Primary Care Unavailable CHACE, CHEMA M Primary Care Unavailable DE PAZ, ANILA Referring Unavailable CHACE, CHEMA M Primary Care Unavailable DE PAZ, ANILA Referring Unavailable CHACE, CHEMA M Primary Care Unavailable CHACE, CHEMA M Primary Care Unavailable SUSAN SQUIRES Attending Unavailable CHACE, CHEMA M Referring Unavailable CHACE, CHEMA M Primary Care Unavailable LAISHA LIZARRAGA Attending Unavailable DE PAZ, ANILA Referring Unavailable CHACE, CHEMA M Primary Care Unavailable CHACE, CHEMA M Primary Care Unavailable DE PAZ, ANILA Referring Unavailable LAISHA LIZARRAGA Attending Unavailable CHACE, CEHMA M Primary Care Unavailable [facility], ANILA Admitting Unavailable DE PAZ, ANILA Attending Unavailable CHACE, CHEMA M Primary Care Unavailable [facility] Attending Unavailable DENICE JACOBS Referring Unavailable CHACE, CHEMA M Primary Care Unavailable Chace COHEN, Dr. Bear Primary Care Provider [phone] Dr. Isma Bustamante DO Emergency Provider Chace, Chema Referring Unavailable Chace, Chema Attending Unavailable Chace, Chema Primary Care Unavailable Isma Bustamante Attending Unavailable Chace, Chema Primary Care Unavailable Chace, Chema Referring Unavailable Jerri Jamison Attending Unavail able Chace, Chema Primary Care Unavailable Susan Emery Attending Unavailable Chace, Chema Primary Care Unavailable Chace, Chema Referring Unavailable Chace, Chema Attending Unavailable Chace, Chema Primary Care Unavailable Sandra Vincent NP Attending Unavailable Chace, Chema Primary Care Unavailable Sandra Vincent NP Referring Unavailable Susan Emery Attending Unavailable Chace, Chema Primary Care Unavailable Vincent Morris Attending Unavailable Chace, Chema Primary Care Unavailable Chace, Chema Referring Unavailable Chace, Chema Primary Care Unavailable Jd Gallego Attending Unavailable Chace, Chema Attending Unavailable Chace, Chema Primary Care Unavailable Chace, Chema Referring Unavailable Christopher Turk Attending Unavailable Chace, Chema Primary Care Unavailable Chace, Chema Referring Unavailable Chace, Chema Primary Care Unavailable Jd Gallego Attending Unavailable Chace, Chema Primary Care Unavailable Jd Gallego Attending Unavailable Jd Gallego Referring Unavailable Chace, Chema Attending Unavailable Chace, Chema Referring Unavailable Chace, Chema Primary Care Unavailable Chace, Chema Referring Unavailable Chace, Chema Attending Unavailable Chace, Chema Primary Care Unavailable Chace, Chema Referring Unavailable Chace, Chema Attending Unavailable Chace, Chema Primary Care Unavailable Malachi Caal Attending Unavailable Malachi Caal Referring Unavailable Chace, Chema Primary Care Unavailable Chace, Chema Primary Care Unavailable Chace, Chema Attending Unavailable Nacho, [place] Attending Unavailable Chace, Chema Attending Unavailable Chace, Chema Primary Care Unavailable Chace, Chema Referring Unavailable Melisa BROWN, Sandra Attending Unavailable Chace, Chema Primary Care Unavailable Chace, Chema Attending Unavailable Chace, Chema Primary Care Unavailable BorrusoChristopher Attending Unavailable Chace, Chema Primary Care Unavailable Nacho, Rolando Attending Unavailable Chace, Chema Primary Care Unavailable Chace, Chema Attending Unavailable Chace, Chema Primary Care Unavailable Chace, Chema Referring Unavailable Borruso, Christopher Attending Unavailable Chace, Chema Primary Care Unavailable Borruso, Christopher Attending Unavailable Chace, Chema Referring Unavailable Nacho, [place] Attending Unavailable Chace, Chema Primary Care Unavailable Syed Leonard Attending Unavailable Chace, Chema Referring Unavailable Borruso, Christopher Attending Unavailable Hcace, Chema Primary Care Unavailable Chace, Chema Attending Unavailable Chace, Chema Primary Care Unavailable Chace, Chema Referring Unavailable Chace, Chema Primary Care Unavailable Melisa BROWN, Sandra Attending Unavailable Chace, Chema Referring Unavailable Chace, Chema Primary Care Unavailable Jerri Jamison Attending Unavail able Chace, Chema Referring Unavailable Chace, Chema Attending Unavailable Chace, Chema Primary Care Unavailable Allergies Allergy Classification Reported Allergen(s) Allergy Type Date of Onset Reaction(s) Facility Acetaminophen / oxyCODONE (1 source) Acetaminophen / oxyCODONE Drug Allergy 08-09-20 20 Mental Status Change [facility] Anti-Epileptic Agents (1 source) lamoTRIgine Drug Allergy 08-09-20 20 Swelling [facility] Doxycycline (1 source) Doxycycline Drug Allergy 08-09-20 Vomiting [facility] Latex (1 source) Latex Substance Allergy 02-15-20 Rash [facility] NSAIDs (1 source) Diclofenac Drug Allergy 07-17-20 15 Other: See Comments [facility] Opioid Agonists (2 sources) oxyCODONE Drug Allergy 11-08-19 Mental Status Change, Other: See Comments [facility] Quinolones (antibiotic) (1 source) moxifloxacin Drug Allergy 08-09-20 Mental Status Change [facility] zolpidem (1 source) zolpidem Drug Allergy 08-09-20 Mental Status Change [facility] (20 sources) Acetaminophen / oxyCODONE; 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: [OXYCODONE-ACETAMIN OPHEN] Drug Allergy 08-09-20 Mental Status Change [facility] (20 sources) Adhesive agent; 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: [ADHESIVE] Drug Allergy 02-24-20 Other: See Comments [facility] (20 sources) Diclofenac; 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: [DICLOFENAC SODIUM] Drug Allergy 07-17-20 Other: See Comments [facility] (4 sources) diphenhydrAMINE Drug Allergy 05-20-20 16 Unknown, Other: See Comments [facility] (20 sources) Doxycycline; 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: [DOXYCYCLINE] Drug Allergy 08-09-20 Vomiting [facility] (20 sources) lamoTRIgine; 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: [LAMOTRIGINE] Drug Allergy 08-09-20 Swelling [facility] (20 sources) Latex; 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: [LATEX] Drug Allergy 02-15-20 Rash [facility] (20 sources) moxifloxacin; Translations: [MOXIFLOXACIN] Drug Allergy 08-09-20 Mental Status Change [facility] (20 sources) oxyCODONE; Translations: [OXYCODONE] Drug Allergy 06-28-20 Mental Status Change [facility] Comment on above: Nightmares, Suicidal Ideation (20 sources) Propoxyphene; Translations: [PROPOXYPHENE] Drug Allergy 11-08-19 Mental Status Change, Other: See Comments [facility] (20 sources) zolpidem; Translations: [ZOLPIDEM] Drug Allergy 08-09-20 Mental Status Change [facility] (20 sources) Adhesive Tape-Silicones; Translations: [ADHESIVE TAPE-SILICONES] Drug Allergy 02-24-20 Unknown [facility] (20 sources) Propoxyphene N-Acetaminophen; Translations: [PROPOXYPHENE N-ACETAMINOPHEN] Drug Allergy 02-09-20 Other: See Comments [facility] (20 sources) Acetaminophen Drug Allergy 11-08-19 Other [facility] (20 sources) moxifloxacin; Translations: [moxifloxacin HCl] Drug Allergy 11-08-19 Other [facility] (20 sources) Propoxyphene; Translations: [propoxyphene napsylate] Drug Allergy 11-08-19 Other [facility] (20 sources) zolpidem; Translations: [zolpidem tartrate] Drug Allergy 11-08-19 Other [facility] (20 sources) Adhesive agent Drug Allergy 02-24-20 Other: See Comments [facility] (4 sources) HYDROcodone Drug Allergy 10-23-19 [facility] Comment on above: Nightmares, Suicidal Ideation (1 source) Acetaminophen Drug Allergy 02-04-20 [facility] (1 source) Doxycycline Drug Allergy 02-04-20 25 [facility] (1 source) HYDROcodone Drug Allergy 02-04-20 [facility] (1 source) lamoTRIgine Drug Allergy 02-04-20 [facility] (1 source) Latex Drug allergy (disorder) 09-18-19 25 [facility] (1 source) oxyCODONE Drug Allergy 02-04-20 [facility] Medications Current Medications Medication Drug [...] 1 TABLET PO EVERY 6 HOURS NEEDED 07 20September 01, 2021 September 25, 2021 9:06pm Administered Medications Medication Order MAR Action Action Date Dose Rate Site tuberculin skin test, unspecified formulation Given 10/09/2021 (1 source) Administered Medications Medication Order MAR Action Action Date Dose Rate Site tuberculin skin test, unspecified formulation Given 10/09/2021 albuterol 0.83 mg/ml inhalation solution (20 sources) beta2-Adrenergic Agonist Start: take 2.5 mg by inhalation every six hours as needed for wheezing Albuterol Sulfate 2.5 mg /3 mL (0.083 %) solution for nebulization Active 2.5 mg INHALATION EVERY 6 HOURS as needed for Sob &/Or Wheezing 180 April 07, 2023 2:08pm Start: 02-11-2022 End: 04-07-2023 take 2.5 mg [...] 11, 2022 2:56pm Start: 08-06-2021 End: 02-11-2022 take 2.5 mg by inhalation every six hours as needed for wheezing Albuterol Sulfate 2.5 mg /3 mL (0.083 %) Solution For Nebulization Discontinued 2.5 mg INHALATION EVERY 6 HOURS as needed for Sob &/Or Wheezing 0 September 25, 2021 1:00am February 11, 2022 2:57pm Start: 05-09-2021 End: 09-25-2021 albuterol sulfate Discontinu ed 2.5 MG continuous nebulization ONCE 1 May 09, 2021 9:38am September 25, 2021 9:05pm Start: 05-09-2021 End: 08-09-2021 take 2.5 mg by inhalation every four hours as needed for wheezing Albuterol Sulfate 2.5 mg /3 mL (0.083 %) solution for nebulization Discontinued 2.5 mg INHALATION Q4H as needed for Sob &/Or Wheezing 180 May 09, 2021 12:00am August 09, 2021 2:12pm Comment on above: as needed. aspirin 81 mg delayed release oral tablet [...] hydrochloride 0.137 mg/actuat metered dose nasal spray (8 sources) Histamine-1 Receptor Antagonist Start: 03-16-2024 End: 06-18-2024 Azelastine 137 mcg (0.1 %) spray,non-aerosol Active 2 NMA INTRANASAL TWICE A DAY March 16, 2024 12:00am BD Sry/needle eclips (20 sources) Start: 02-23-2024 BD Sry/needle eclips Active 0 IM .COMPLEX February 23, 2024 12:16pm intramuscularly; 3ml #3578 uses 1 a month Start: 12-08-2023 End: 02-23-2024 BD Sry/needle eclips Discont inued 0 IM .COMPLEX December 08, 2023 8:03am February 23, 2024 12:17pm intramuscularly; 3ml #3578 uses 1 a month Start: 04-22-2024 BD Sry/needle eclips Active 0 IM .COMPLEX [...] the event of a Fluress shortage, administer Ariella-Fluor 1 drop into both eyes as directed for applanation tonometry, OPHT CLINIC MED ORDERS Start: 05-03-2024 End: 05-04-2024 fluorescein-benoxinate 0.3-0 .4 % 1 Drop (FLURESS) Start: 10-27-2023 End: 10-28-2023 fluorescein-benoxinate 0.3-0 .4 % 1 Drop (FLURESS) brimonidine tartrate 2 mg/ml ophthalmic solution (20 sources) alpha-Adrenergic Agonist Start: 10-14-2024 Brimo nidine 0.2 % drops Active NMA OPHTHALMIC AT BEDTIME October 14, 2024 1:00am Start: 05-03-2024 End: [...] as needed. 09/14/2024 Discontinued (Discontinued by Patient) D-Mannose (20 sources) Start: 06-07-2022 take 1 capsule by mo uth once daily D-Mannose 500 mg capsule Active [...] capsule (20 sources) take 1 capsule by mo uth once daily d-mannose 500 mg capsule Take 500 mg by mouth once daily. Suspended take 1 capsule by mouth once eugenie ly d-mannose 500 mg capsule Take 500 mg by mouth once daily. Active 1 ml denosumab 60 mg/ml prefilled syringe (20 sources) RANK Ligand Inhibitor Start: 06-07-2022 End: 01-24-2025 Denosumab (Prolia) 60 mg/mL syringe Active 60 mg SC every 6 months January 24, 2025 10:45am Start: 06-28-2020 End: 03-01-2021 Denosumab (Prolia) 60 [...] November 2020 diazePAM 2 mg oral tablet (9 sources) Benzodiazepine Start: 02-03-2025 take 1 tablet by mouth three times daily as needed for pain Diazepam (Valium) 2 mg tablet Active 2 mg PO THREE TIMES A DAY as needed for Muscle pain/spasm 30 12February 03, 2025 12:00am Start: 03-16-2024 End: 06-18-2024 take 1 tablet by mouth at bedtime as needed for anxiety Diazepam (Valium) 2 mg tablet Discontinued 2 mg PO AT BEDTIME as needed for anxiety March 16, 2024 12:00am June 07, 2024 9:10am DODEX 1,000 mcg/mL (20 sources) Start: 07-19-2022 inject 1000 ug by intramuscular injection every month DODEX 1,000 mcg/mL Inject 1,000 mcg intramuscularly once every month. Vitamin F-[id number] 07/19/2022 Suspended Start: 07-19-2022 inject 1000 ug by in tramuscular injection every month DODEX 1,000 mcg/mL Inject 1,000 mcg intramuscularly once every month. Vitamin X-[id number] 07/19/2022 Active Start: 07-19-2022 DODEX 1,000 mc g/mL inject 1 milliliter ( 1000 MCG ) intramuscularly Every Month 07/19/2022 Active Start: 07-19-2022 DODEX 1,000 mc g/mL inject 1 milliliter ( 1000 MCG ) intramuscularly Every Month 0 07/19/2022 Active Comment on above: inject 1 milliliter ( 1000 MCG ) intramuscularly Every Month dorzolamide 20 mg/ml / timolol 5 mg/ml ophthalmic solution (20 sources) Carbonic Anhydrase Inhibitor, beta-Adrenergic Oxana Start: 5 take 1 drop(s) into the eye(s) twice daily dorzolamide-timolo l (COSOPT) 22.3-6.8 mg/mL ophthalmic solution Use 1 Drop in both eyes two times a day. 15 mL 11/01/2024 Active enteric contrast (will be provided with radiology test) (2 sources) Start: End: enteric contrast (will be provided with radiology test) For CT CHESTABD/PEL W IVCON Routine order Administer, As Directed One Time Only, via Oral, Rectal, both Oral and Rectal, Enteric Tube, Stoma or Indwelling Catheter, Enteric Contrast as designated per enteric contrast guidelines 1 Each 06/18/2024 06/19/2024 Active famotidine 10 mg oral tablet (20 sources) Histamine-2 Receptor Antagonist Start: 2 take 1 tablet by mouth twice daily [...] dose nasal spray (20 sources) Corticosteroid Start: 4 take 50 ug nasal route once daily Fluticasone Propionate (Allergy Relief (Fluticasone)) 50 mcg/actuation spray,suspension Active 1 NMA INTRANASAL DAILY March 16, 2024 12:00am administer into each nostril End: 09-14-2024 take 1 spray(s) nasal route once daily fluticasone (ALLERGY RELIEF, FLUTICASONE,) 50 mcg/actuation nasal spray Use 1 [place] in each nostril once daily. 09/14/2024 Discontinued [...] needed for edema Furosemide 20 mg tablet Discontinued 10 mg PO DAILY as needed for edema October 28, 2024 3:57pm November 23, 2024 10:15am Start: 08-13-2023 End: 10-08-2023 take 10 mg [...] oral capsule (20 sources) Anti-epileptic Agent Start: take 3 capsules by mouth at bedtime Gabapentin 100 mg capsule Active 300 mg PO AT BEDTIME February 03, 2025 12:00am Start: 12-23-2024 End: 06-21-2025 take 2 capsules by mouth once daily gabapentin (NEURONTIN) 100 mg capsule Indications: Idiopathic peripheral neuropathy , Restless legs syndrome Take 2 capsules by mouth once daily for 180 days. 180 capsule 1 12/23/2024 06/21/2025 Active Start: 01-02-2023 End: 12-20-2025 take 1 capsule by mouth once daily as needed Gabapentin 100 mg capsule Discontinued 100 mg PO DAILY as needed for restless leg(s) August 31, 2024 11:38am February 03, 2025 6:19am Start: 01-02-2023 End: 01-29-2023 take 1 capsule [...] 14 days. 30 g 10/29/2024 11/12/2024 Active HYDROmorphone hydrochloride 2 mg oral tablet (1 source) Opioid Agonist Start: 02-03-2025 take 1 tablet by mouth every six hours as needed for pain Hydromorphone (Dilaudid) 2 mg tablet Active 2 mg PO EVERY 6 HOURS as needed for pain 20 February 03, 2025 Start: 02-03-2025 take 1 tablet by ricki th every six hours as needed for pain Hydromorphone (Dilaudid) 2 mg tablet Active 2 mg PO EVERY 6 HOURS as needed for pain 04 01February 03, 2025 Ipratropium (16 sources) Anticholinergic Start: 10-08-2023 Ipratropium [...] CAP PO DAILY September 02, 2021 1:00am ammonium lactate 120 mg/ml topical lotion (20 sources) Start: 06-13-2022 ammonium lactate (LAC-HYDRIN) 12 % lotion 06/13/2022 Active lactobacillus acidophilus [id number] unt oral capsule (20 sources) Start: 03-27-2021 [...] in both e yes daily at bedtime. 24 hr mirabegron 50 mg extended release oral tablet (20 sources) beta3-Adrenergic Agonist Start: 01-29-2023 take 1 tablet by mouth every [...] DAILY June 06, 2022 11:00pm Multivitamin tablet (4 sources) Start: 06-07-2022 Multivitamin t ablet Active [...] hydrochloride 0.665 mg/actuat metered dose nasal spray (4 sources) Histamine-1 Receptor Inhibitor Start: 10-14-2024 Olopatadine 0.6 % spray,non-aerosol Active 2 NMA INTRANASAL DAILY October 14, 2024 1:00am Start: 10-14-2024 Olopatadine 0. 6 % spray,non-aerosol Active NMA INTRANASAL October 14, [...] tablet (20 sources) Proton Pump Inhibitor Start: End: 5 take 1 tablet by mouth once daily Pantoprazole 40 mg tablet,delayed release (DR/EC) Active 40 mg PO DAILY October 14, 2024 1:00am PEP device (20 sources) Start: PEP device Active 0 .ROUTE .MEDSUPPLY April [...] release oral tablet (20 sources) Start: 08-03-2024 Potassium Chlo ride (Klor-Con M20) 20 mEq tablet,ER particles/crystals Active 20 meq PO DAILY October 14, 2024 1:00am Start: 09-26-2021 End: 04-11-2022 take 20 mEq by mouth once daily potassium chloride 20 mEq TbER Take 20 mEq by mouth once daily. 0 09/26/2021 04/11/2022 Discontinued (Discontinued by Patient) Start: 09-25-2021 Potassium Chlo ride (Klor-Con M20) 20 mEq Tablet,Er Particles/Crystals Active 20 MEQ PO DAILY WITH MEALS September 25, 2021 9:05pm Comment on above: Take 20 mEq by mouth once daily. proparacaine hydrochloride 5 mg/ml ophthalmic solution (4 sources) Local Anesthetic Start: 11-01-2024 End: 11-02-2024 proparacaine 0.5 % 1 Drop (ALCAINE) Start: 08-02-2024 End: 08-03-2024 proparacaine 0.5 % 1 Drop (A LCAINE) Start: 05-03-2024 End: 05-04-2024 proparacaine 0.5 % 1 Drop (A LCAINE) Start: 10-27-2023 End: 10-27-2023 proparacaine 0.5 % 1 Drop (A LCAINE) syringes BD ECLIPSE (11 sources) Start: 04-11-2023 syringes BD EC LIPSE Active 0 .Route .[facility] April 11, 2023 12:00am Bd SYR/leticia Eclipse 3ml #5782 Start: 04-11-2023 syringes BD EC LIPSE Active 0 .Route .[facility] April 10, 2023 11:00pm Bd SYR/leticia Eclipse 3ml #5782 Start: 04-11-2023 syringes BD EC LIPSE Active 0 .ROUTE .[facility] April 10, 2023 11:00pm Bd SYR/leticia Eclipse 3ml #5782 Start: 04-11-2023 syringes BD EC LIPSE Active 0 .ROUTE .[facility] April 11, 2023 12:00am Bd SYR/leticia Eclipse 3ml #5782 tropicamide 10 mg/ml ophthalmic solution (1 source) Anticholinergic Start: 05-03-2024 End: 05-04-2024 tropicamide 1 % 1 Drop (MYDRIACYL) vitamin b12 1 mg/ml injectable solution (20 sources) Vitamin B12 Start: 01-24-2025 inject 1000 ug by intramuscular injection every month Cyanocobalamin (Vitamin B-12) 1,000 mcg/mL solution Active 1000 ug IM EVERY MONTH January 24, 2025 10:45am Can be administered at [facility] Start: 09-18-2023 End: 06-05-2024 Cyanocobalamin (Vitamin B-12 ) (Dodex) 1,000 mcg/mL [...] 25, 2022 12:00am August 15, 2022 2:10pm Completed/Discontinued Medications Medication Drug Class(es) Dates Sig [...] System Stimulant, Methylxanthine Start: 02-15-2022 End: 04-25-2022 Czlmchywornnn-Maaj-Lxmibykug e (Midol Complete) 500-60-15 mg Tablet Discontinued {tbl} February 15, 2022 12:00am April 25, 2022 11:40am acetaminophen 500 mg / pamabrom 25 mg / pyrilamine maleate 15 mg oral tablet (20 sources) Start: 02-15-2022 End: 04-25-2022 Yavnezbyzsrlb-Jcuhtavb-Gkqof am (Pamprin Multi-Symptom) 500-25-15 mg Tablet Discontinued {tbl} February 15, 2022 12:00am April 25, 2022 11:40am acyclovir 800 mg oral tablet (15 sources) Herpesvirus Nucleoside Analog DNA Polymerase Inhibitor, [...] /3 mL (0.083 %) solution for nebulization (4 sources) Start: 02-11-2022 End: 04-07-2023 take 2.5 [...] 26, 2014 12:00am June 28, 2020 2:55pm apixaban 5 mg oral tablet (20 sources) Factor Xa Inhibitor Start: 03-20-2021 End: 06-08-2024 take 1 tablet by mouth twice daily Apixaban (Eliquis) 5 mg tablet Discontinued 5 mg PO TWICE A DAY 180 December 08, 2023 8:02am June 08, 2024 9:43am Start: 03-09-2021 End: 09-25-2021 take 2 tablets by mouth twice daily, then take 1 tablet by mouth twice daily Apixaban (Eliquis) 5 mg tablet Discontinued 5 mg PO TWICE A DAY September 04, 2021 1:07pm September 25, 2021 9:06pm 10 mg twice a day for the first week. Then 5 mg twice a day. Comment on above: BID ascorbic acid 125 mg / iron carbonyl 65 mg delayed release oral tablet (20 sources) Vitamin C Start: 06-28-2020 End: 03-01-2021 Iron,Carbonyl-Vitamin C (Vitron-C) 65 mg iron- 125 mg tablet,delayed release (DR/EC) Discontinued 1 {tbl} PO EVERY OTHER DAY June 28, 2020 1:00am March 01, 2021 7:55pm swallow whole; do not chew/break/dissolve/open atorvastatin 40 mg oral tablet (20 sources) [...] 5 days cephalexin 500 mg oral capsule (4 sources) Cephalosporin Antibacterial Start: 05-04-2024 End: 06-07-2024 [...] D3) 50 mcg (2,000 unit) capsule Discontinued 85228 U PO EVERY MONTH August 02, 2020 [...] (Vitamin B-12 ) (Dodex) 1,000 mcg/mL solution (7 sources) Start: 07-22-2023 End: 09-18-2023 Cyanocobalamin (Vitamin [...] September 18, 2023 10:39am 1 mL vials. Cyanocobalamin (Vitamin B-12) 1,000 mcg/mL solution (4 sources) Start: 04-01-2024 End: 01-24-2025 inject 1000 ug by intramuscular injection every month Cyanocobalamin (Vitamin B-12) 1,000 mcg/mL solution Discontinued 1000 ug IM EVERY MONTH April 01, 2024 12:00am January 24, 2025 10:45am Can be administered at [facility] [place] Start: 04-01-2024 inject 1000 ug by in tramuscular injection every month Cyanocobalamin (Vitamin B-12) 1,000 mcg/mL solution Active 1000 ug IM EVERY MONTH April 01, 2024 12:00am Can be administered at [facility] [place] D marlo (20 sources) Start: 03-20-2022 End: 06-07-2022 D marlo Discontinued PO Augu st 2021 12:00am June 07, 2022 1:08pm Start: 03-20-2022 End: 06-07-2022 D marlo Discontinued PO Augu st 2021 11:00pm June 07, 2022 12:08pm donepezil hydrochloride 10 mg oral tablet (20 sources) Start: 11-12-2023 take 2 tablets by mouth once daily Donepezil (Aricept) 5 mg tablet Active 10 mg PO DAILY November 12, 2023 3:21pm Start: 10-16-2023 End: 10-14-2024 take 1 tablet by mouth once daily Donepezil 10 mg tablet Discontinued 10 mg PO DAILY June 08, 2024 9:42am October 14, 2024 2:10pm Start: 04-07-2023 End: 11-12-2023 take 1 tablet [...] 0.5 tablets by mouth daily with breakfast. esomeprazole 40 mg delayed release oral capsule [...] Take by mouth as nee ded. Ipratropium [place] 42 mcg (0.06 %) spray,non-aerosol (4 sources) Start: 10-08-2023 End: 03-16-2024 Ipratropium [place] 42 mcg (0.06 %) spray,non-aerosol Discontinued 2 [...] On Fri09/13/24 at 1500, Protect from Light. lacosamide 100 mg oral tablet (20 sources) Anti-epileptic Agent Start: 06-28-2020 End: 12-20-2024 take 1 tablet by mouth twice daily Lacosamide (Vimpat) 100 mg tablet Discontinued 100 mg PO TWICE A DAY 180 June 08, 2024 9:42am December 20, 2024 1:37pm Comment on above: Take 1 tablet by ricki twice daily for 180 days. levothyroxine sodium 0.05 mg oral tablet (20 [...] 1 tablet by mouth once daily Levothyroxine 50 mcg tablet Discontinued 50 ug PO DAILY October 15, 2023 8:58am June 08, 2024 9:43am Start: 03-08-2021 End: 12-03-2022 take 1 tablet by mouth once daily Levothyroxine (Synthroid) 25 mcg tablet Discontinued 25 ug PO DAILY August 22, 2022 2:34pm December 03, 2022 5:55pm Comment on above: Take 25 mcg by mouth once daily. lidocaine 0.05 mg/mg medicated patch (4 sources) Antiarrhythmic, Amide Local Anesthetic Start: 5 End: Lidocaine (Lidoderm) 5 % adhesive patch,medicated Discontinued 1 NMA TOPICAL DAILY September 18, 2024 1:00am October 14, 2024 2:12pm leave on most painful area for up to 12 hrs LORazepam 0.5 mg oral tablet (1 source) Benzodiazepine Start: 3 End: 3 take 1 tablet by mouth once LORazepam (ATIVAN) 0.5 mg Indications: Anxiety Take 1 tablet by mouth one time only for 1 dose. Please take 30-40 mins before MRI 1 tablet 0 11/13/2022 11/13/2022 Comment on above: Take 1 tablet by [facility] one time only for 1 dose. Please take 30-40 mins before MRI magnesium hydroxide 80 mg/ml oral suspension (8 sources) Start: 2 End: 2 magnesium hydroxide (MOM) 400 mg/5 mL suspension Take by mouth as needed. 0 11/07/2021 04/11/2022 Discontinued (Discontinued by Patient) Start: 11-07-2021 take 1 mL by mouth once daily Magnesium Hydroxide (Milk Of Magnesia) 400 mg/5 mL suspension Active 30 ML PO DAILY November 07, 2021 2:24pm Comment on above: Take by mouth as nee ded. meclizine hydrochloride 25 mg oral tablet (19 sources) Antiemetic Start : 01-01 End: 10-08 [...] 03, 2020 1:00am November 06, 2020 1:33pm memantine hydrochloride 10 mg oral tablet (20 sources) F-iegbon-C-aspartat e Receptor Antagonist Start : 04-10 End: 06-08 take 1 tablet by mouth twice daily Memantine 10 mg tablet Discontinued 10 mg PO TWICE A DAY September 18, 2023 11:39am June 08, 2024 9:43am methylPREDNISolone 4 mg oral tablet (16 sources) Corticosteroid Start : 03-16 End: 04-05 [...] DIR midodrine hydrochloride 2.5 mg oral tablet (16 sources) alpha-Adrenergic Agonist Start: 01-08-2023 End: 01-29-2023 [...] tablet (8 sources) Cholinergic Muscarinic Antagonist Start: 11-08-19 End: 04-11-20 take 1 tablet by mouth once daily oxybutynin ER (DITROPAN XL) 10 mg 24 hr tablet Take by mouth once daily. 0 11/07/2021 04/11/2022 Discontinued (Discontinued by Patient) Comment on above: Take by mouth once d aily. pramipexole dihydrochloride 0.5 mg oral tablet (20 sources) Nonergot Dopamine Agonist Start: 09-26-19 End: 06-08-20 take 1 tablet by mouth twice daily Pramipexole 0.5 mg tablet Discontinued 0.5 mg PO TWICE A DAY 180 April 16, 2024 4:08pm June 08, 2024 9:43am Start: 09-25-2021 take 1 tablet by ricki [...] 0.5 mg by mouth three times daily. pravastatin sodium 40 mg oral tablet (20 [...] mg / trimethoprim 160 mg oral tablet (4 sources) Dihydrofolate Reductase Inhibitor Antibacterial, Sulfonamide Antimicrobial Start: End: Sulfamethoxazole-Trim ethoprim (Bactrim Ds) 800-160 mg tablet Discontinued 1 {tbl} PO TWICE A DAY 06 06June 05, 2024 12:00am June 14, 2024 12:00am June 15, 2024 12:08am 24 hr tolterodine tartrate 4 mg extended release oral capsule (20 sources) Cholinergic Muscarinic Antagonist Start: 022 End: take 1 capsule by mouth once [...] as needed. valACYclovir 500 mg oral tablet (13 sources) Herpesvirus Nucleoside Analog DNA Polymerase Inhibitor, Herpes Simplex Virus Nucleoside Analog DNA Polymerase Inhibitor, Herpes Zoster Virus Nucleoside Analog DNA Polymerase Inhibitor Start: End: take 2 tablets by mouth every eight [...] day. 06/18/2024 Discontinued (Course of therapy completed) vortioxetine 20 mg oral tablet (20 sources) Start: 04-10-2021 End: 06-08-2024 take 1 tablet by mouth once daily Vortioxetine (Trintellix) 20 mg tablet Discontinued 20 mg PO DAILY April 16, 2024 4:07pm June 08, 2024 9:43am Comment on above: Once daily Take 20 mg by mouth once daily. Problems Active Problems Problem Classification Problem Date [...] Coronary atherosclerosis; Translations: [Atherosclerotic heart disease of [place] coronary artery without angina pectoris] Onset: 1 Chronic Deficiency and other anemia (20 sources) Iron deficiency anemia; Translations: [Iron deficiency anemia, unspecified] Onset: 4 03-12-2021 Episodic Delirium, dementia, and amnestic and other cognitive [...] Translations: [Essential (primary) hypertension] Onset: 7 Chronic Fluid and electrolyte disorders (20 sources) Dehydration; Translations: [Dehydration] Onset: 9 02-23-2022 Episodic Fracture of upper limb (20 sources) Fracture of radius; Translations: [Unspecified fracture of unspecified forearm, initial encounter for closed fracture] Onset: 5 06-28-2020 Episodic Glaucoma (6 sources) Primary open [...] 05-28-2022 Episodic Joint disorders and dislocations; trauma-related (5 sources) Chronic instability of left knee joint; [...] 5 03-12-2021 Chronic Open wounds of extremities (6 sources) Open wound of lower limb; Translations: [Unspecified open wound, right lower leg, initial encounter] Onset: 5 05-04-2024 Episodic Open wounds of head; neck; and trunk (20 sources) Scalp laceration; Translations: [Laceration without foreign body of scalp, initial encounter] 07-21-2022 Episodic Osteoarthritis (16 sources) Osteoarthritis of left knee joint; Translations: [...] site unspecified] 09-14-2024 Chronic Other acquired deformities (12 sources) Kyphoscoliosis deformity of spine; Translations: [Scoliosis, unspecified] 04-05-2024 Chronic Other acquired deformities (1 source) Unspecified kyphosis, site unspecified; Translations: [Kyphosis, unspecified kyphosis type, unspecified spinal region] Onset: 5 Chronic Other acquired deformities (1 source) Scoliosis, unspecified; Translations: [Scoliosis, unspecified] Onset: 5 Chronic Other acquired deformities (13 sources) Deformity of sternum; Translations: [Acquired deformity of chest and rib] 02-12-2023 Episodic Other aftercare (20 sources) Long-term current use of anticoagulant; Translations: [medical terminologist (current) use of anticoagulants] 03-23-2022 Episodic Other aftercare (20 sources) Surgical follow-up; Translations: [Encounter for removal of sutures] 07-24-2022 Episodic Other aftercare (4 sources) Encounter for removal of sutures; Translations: [Encounter for removal of sutures] Episodic Other aftercare (4 sources) Drug therapy finding; Translations: [snf (current) use of anticoagulants] 06-15-2024 Episodic Other [...] Onset: 5 Episodic Other connective tissue disease (20 sources) Recurrent falls ; Translations: [Repeated falls] Onset: 1 Episodic Other connective tissue disease (18 sources) Bursitis of olecranon of left elbow; Translations: [Olecranon bursitis, left elbow] 10-16-2022 Episodic Other connective tissue disease (16 sources) Pain in left lower limb; Translations: [Pain in left leg] 12-25-2022 Episodic Other connective tissue disease (5 sources) Pain in left leg; Translations: [Pain in limb] 12-25-2022 Episodic Other connective tissue disease (11 sources) Increased muscle tone; Translations: [Other specified [...] fracture of rib(s), unspecified] Episodic Other fractures (7 sources) Fracture of right rib; Translations: [Fracture [...] 10-08-2020 Episodic Other inflammatory condition of skin (15 sources) Pruritus, unspecified; Translations: [Pruritus] 10-08-2020 Episodic [...] injuries and conditions due to external causes (19 sources) Injury of left shoulder; Translations: [Unspecified injury of left shoulder and upper arm, initial encounter] 09-21-2022 Episodic Other injuries and conditions due to external causes (8 sources) Injury of left elbow region; Translations: [...] communication deficit; Translations: [Cognitive communication deficit] Onset: Chronic Other nervous system disorders (1 source) Hereditary and idiopathic neuropathy, unspecified; Translations: [Idiopathic peripheral neuropathy] Onset: Chronic Other nervous system disorders (1 source) [...] Onset: 5 Chronic Other nervous system disorders (19 sources) Impairment of balance; Translations: [Other abnormalities [...] Onset: 4 Episodic Other non-traumatic joint disorders (18 sources) Pain in elbow; Translations: [Pain in left elbow] 10-16-2022 Episodic Tiffany-; endo-; and myocarditis; cardiomyopathy (except that caused by tuberculosis or sexually transmitted disease) (3 sources) Cardiomyopathy; Translations: [Cardiomyopathy, unspecified] Onset: 4 06-18-2024 Chronic Poisoning by nonmedicinal substances (17 sources) Bee sting; Translations: [Toxic effect of venom of bees, accidental (unintentional), initial encounter] 03-24-2023 Episodic Pulmonary heart disease (20 sources) Pulmonary hypertension; Translations: [Pulmonary hypertension, unspecified] Onset: 5 09-14-2024 Chronic Pulmonary heart disease (20 sources) Pulmonary embolism; Translations: [Other pulmonary embolism without acute cor pulmonale] Onset: 4 Episodic Rehabilitation care; fitting of prostheses; and adjustment [...] (5 sources) Localized edema; Translations: [Edema] Onset: 4 Episodic Residual codes; unclassified (4 sources) Activity of daily living (ADL) alteration; Translations: [Other specified health status] 10-29-2024 Episodic Residual codes; unclassified (9 sources) History of hernia repair; Translations: [Other specified postprocedural states] 10-29-2024 Episodic Comment on above: [facility] Residual codes; unclassified (3 sources) Edema of lower extremity; Translations: [Localized edema] 11-09-2024 Episodic Residual codes; unclassified (1 source) Other specified health status; Translations: [Decreased activities of daily living (ADL)] Onset: 5 Episodic Skin and subcutaneous tissue infections (4 sources) Bacterial infection of skin; Translations: [Local [...] region, unspecified whether pain present] Onset: 5 Unclassified (1 source) Clavicle fracture Urinary tract infections (20 sources) Urinary tract [...] above: 2 STENTS/ Deficiency and other anemia (1 source) Iron deficiency anemia, unspecified; Translations: [Iron deficiency anemia, unspecified iron deficiency anemia type] Onset: 07-19-2024 Episodic Malaise and fatigue (20 sources) Physical [...] Onset: 09-14-2024 Episodic Other connective tissue disease (8 sources) [...] conditions (not mental disorders or infectious disease) (9 sources) Liver function tests abnormal; Translations: [Abnormal results of liver function studies] Onset: 04-12-2024 09-03-2024 Episodic Pancreatic disorders (not diabetes) (3 sources) Pancreatic duct disorder; Translations: [Other specified diseases of pancreas] Onset: 09-13-2024 09-08-2024 Episodic Phlebitis; thrombophlebitis and thromboembolism (20 sources) H/O: Deep vein thrombosis; Translations: [Personal history of other venous thrombosis and embolism] Onset: 06-05-2013 07-19-2024 Episodic Residual codes; unclassified (20 sources) Bilateral lower limb edema; Translations: [Localized edema] Onset: 02-20-2019 07-19-2024 Episodic Residual codes; unclassified (2 sources) Acquired absence of other specified parts of digestive tract; Translations: [Status post cholecystectomy] Onset: 10-21-2024 Episodic Residual codes; unclassified (2 sources) Other specified postprocedural states; Translations: [S/P repair of paraesophageal hernia] Onset: 10-21-2024 Episodic Sprains and strains (5 sources) Lower back injury; Translations: [Strain of muscle, fascia and tendon of lower back, initial encounter] Onset: 04-07-2024 06-15-2024 Episodic Unclassified (20 sources) Parkinsonism; Translations: [Parkinsonism, unspecified Parkinsonism type (HCC)] Onset: 07-20-2024 Resolved: 07-20-2024 07-20-2024 Chronic Unclassified (20 sources) Partial complex seizures 03-18-2022 Unclassified (20 sources) h/o back surgery 03-18-2022 Comment on above: LUMBAR FUSION Results Test Name Value Interpretation Reference Range Facility Emergency Department Summary on 02-03-[address] [facility] Medical Records Department [address] [place] [address] Emergency Department Summary 02/03/25 MR#: [id number] Acct: [id number] Name: LAUREN ALCARAZ Rep #: [id number] : 1940 84 From: Isma Bustamante DO PCP: Dr. Chema Perry MD Status:REG ER Location: ED HPI History of Present Illness Chief Complaint: Upper Extremity Injury Informant: patient and spouse/S.O. Narrative Narrative: Patient is a 84-year-old female with past medical history of hypertension hyperlipidemia hypothyroidism and previous DVT currently on Eliquis. She states she is a night owl and she was getting up off the floor to use the restroom and braced herself against the chair. She states the chair is a small chair and it turned as she went to stand causing her to lose her balance and fall landing on her right shoulder. She denies striking her head or any loss of consciousness. She states she was able to get back up following the fall but noticed that her shoulder was swollen and appeared deformed. She has concern for fracture or dislocation and secondary to this comes in for evaluation. She denies any other injury [facility] Medical History (Updated 02/03/25 @ 07:[address] Isma Bustamante, DO) Leg edema Open wound of right lower extremity Contusion [...] artery ( 1989) Atherosclerotic heart disease of [place] coronary artery without angina pectoris Essential hypertension [...] Sob /Or Wheezing #180 mL syringes BD Blend 04/11/23 Unknown History latanoprost 0.005 % eye drops 1 drp ophthalmic (eye) DAILY 08/13 Unknown History (Xalatan) donepezil 5 mg tablet (Aricept) 10 mg (2 x 5 mg) PO DAILY #90 tabs 11/12/23 Unknown Rx nitroglycerin 0.4 mg sublingual 0.4 mg sublingual Q5-15M PRN chest 11/12/23 Unknown Rx tablet pain #25 tabs BD Sry/needle eclips See Rx Instructions IM .COMPLEX Unknown Rx #12 ea azelastine 137 mcg (0.1 %) nasal 2 spray intranasal BID 03/16/24 Un known History spray cetirizine 10 mg capsule (Zyrtec) 10 mg PO DAILY PRN allergy sympto ms 03/16/24 Unknown History fluticasone propionate 50 1 spray intranasal DAILY 03/16/24 Unknown History mcg/actuation nasal spray,suspension (Allergy Relief (fluticasone)) PEP device #1 ea 04/06/24 Unknown Rx apixaban 5 mg tablet (Eliquis) 5 mg PO BID #180 tabs 06/08/24 Unk nown Rx atorvastatin 40 mg tablet See Rx Instructions .Route 4 Unknown Rx .COMPLEX #90 tabs levothyroxine 50 mcg tablet 50 mcg PO DAILY Thyroid #90 tabs 1 Unknown Rx memantine 10 mg tablet 10 mg PO BID Alzheimer's #180 tabs 06/08/24 Unknown Rx pramipexole 0.5 mg tablet 0.5 mg PO BID #180 tabs 06/08/24 U nknown Rx vortioxetine 20 mg tablet 20 mg PO DAILY DEPRESSION #90 tabs 06/08/24 Unknown Rx (Trintellix) brimonidine 0.2 % eye drops drp ophthalmic (eye) QHS 10/14/24 Unknown History olopatadine 0.6 % nasal spray 2 spray intranasal DAILY 10/14/24 Unknown History pantoprazole 40 mg tablet,delayed 40 mg PO DAILY 10/14/24 Unknown (more content not included)... Normal [facility] Extremity Upper without Cont raon 02-03-2025 Extremity Upper without Contra [facility] [address] [place] [address] Extremity Upper without Contra MR#: [id number] Acct: [id number] Name: LAUREN ALCARAZ Rep #: [id number] : 1940 F 84 From: Izzy cabrera MD PCP: Dr. Chema Perry MD Status: REG ER Study: Extremity Upper without Contra Date of Exam: 0 02/03/25 Exam# [id number] Ordering Dr: Isma Bustamante DO PROCEDURE: EXTREMITY UPPER WITHOUT CONTRA 02/03/2025 REASON FOR EXAM: CLAVICLE FRACTURE TECHNIQUE: EXTREMITY UPPER WITHOUT CONTRA Coronal and Sagittal reconstruction series were provided. One or more dose reduction techniques were used (e.g., Automated exposure control, adjustment of the mA and/or kV according to patient size, use of iterative reconstruction technique RADIATION DOSE SUMMARY: CTDlvol: 112.5 mGy DLP: 480.71 mGycm COMPARISON: Radiographs on 02/03/2025. FINDINGS: Acute oblique displaced fracture of the most distal aspect of the right clavicle. Significant cranial displacement of the proximal aspect of the clavicle of the level of the fracture line. Prominent overlying soft tissue edema and swelling. 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 Unremarkable alignment at the level of the acromioclavicular and glenohumeral joints. Mild osteopenia of the visualized bones. Degenerative joint disease. No dislocation is seen. No lytic or blastic bone lesion is noted. Mild subsegmental atelectatic pulmonary changes. CT/Extremity Upper without Contra IMPRESSION: Acute oblique displaced fracture of the most distal aspect of the right clavicle. Significant cranial displacement of the proximal aspect of the clavicle of the level of the fracture line. Prominent overlying soft tissue edema and swelling. 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 Reading Location: [place] [address] CC: Dr. Chema Perry MD; Isma Bustamante DO Hedis Analyst: Signed Normal [facility] Shoulder min 2 Viewson 02-03 Shoulder min 2 Views [facility] [address] [place] [address] Shoulder min 2 Views MR#: [id number] Acct: [id number] Name: LAUREN ALCARAZ Rep #: [id number] : 1940 F 84 From: Izzy cabrera MD PCP: Dr. Chema Perry MD Status: REG ER Study: Shoulder min 2 Views Date of Exam: 02/03/25 Exam# [id number] Ordering Dr: Isma Bustamante DO PROCEDURE: SHOULDER MIN 2 VIEWS 02/03/2025 REASON FOR EXAM: DISLOCATION TECHNIQUE: SHOULDER MIN 2 VIEWS COMPARISON: 06/07/2024. FINDINGS: Acute oblique displaced fracture of the most distal aspect of the right clavicle. Significant cranial displacement of the proximal aspect of the clavicle of the level of the fracture line. 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 Unremarkable alignment at the level of the acromioclavicular and glenohumeral joints. Mild osteopenia of the visualized bones. Degenerative joint disease. No dislocation is seen. No lytic or blastic bone lesion is noted. RAD/Shoulder min 2 Views IMPRESSION: Acute oblique displaced fracture of the most distal aspect of the right clavicle. Significant cranial displacement of the proximal aspect of the clavicle of the level of the fracture line. 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 Reading Location: [place] [address] CC: Dr. Chema Perry MD; Isma Bustamante DO Hedis Analyst: Signed Normal [facility] Inital Evaluation (1) - PTon 01-12-2025 Inital Evaluation (1) - PT [facility] Physical Therapy Health[address] [place] [address] / REHABILITATION SERVICES INITIAL EVALUATION MR#: [id number] Acct: [id number] Name: LAUREN ALCARAZ Rep #: [id number] : 1940 84 From: Gunnar Graves PT, ATC Referring Dr.: Dr. Chema Perry MD Status: R EG RCR Insurance: MEDICARE PART A B R [id number] [id number] Patient's Visit Information Visit Information Visit Information: [...] Pt reports she has had PT at [facility] long-term and with home health at home which [...] to be FAXED BACK to us at [phone] for Medicare purposes. For Medicare only, by signing this I certify the plan of care. Please let me know if there are questions or concerns regarding this plan of care. Physician Signature: Date: 01/12/25 1506 CC: Dr. Chema Perry MD [facility] Signed Normal [facility] Inital Evaluation (1) - PT [facility] Physical Therapy Health[address] [place] [address] / REHABILITATION SERVICES INITIAL EVALUATION MR#: [id number] Acct: [id number] Name: LAUREN ALCARAZ Rep #: [id number] : 1940 84 From: Gunnar Graves PT, ATC Referring Dr.: Dr. Chema Perry MD Status: R EG RCR Insurance: MEDICARE PART A B UMR [place] [id number] Patient's Visit Information Visit Information Visit Information: [...] Pt reports she has had PT at [facility] long-term and with home health at home which [...] to be FAXED BACK to us at [phone] for Medicare purposes. For Medicare only, by signing this I certify the plan of care. Please let me know if there are questions or concerns regarding this plan of care. Physician Signature: Date: 01/12/25 1505 CC: Dr. Chema Perry MD [facility] Signed [facility] CNOVon 12-23-2024 CNOV [facility] CNOVon 12-20-2024 [facility] CNOVon 12-19-2024 [facility] CNOVon 12-09-2024 [facility] 11-26-2024 CNTHERAPY OT/PT/Speech Visit ( [facility]) LAUREN ALCARAZ ([id number]) 1940 F Date Time Provider Department 11/26/24 4:[address] [facility] Date Time Provider Department [place] 11/26/2024 4:15 PM [id number], DIANDRA [facility] Reason for Visit: OT Discharge [750] Primary [...] RN - Fully Assessed Prescriptions as of 11/26/2024 [...] 1,000 mcg intramuscularly once every month. Vitamin E-37-rvunyhledykpii - ammonium lactate (LAC-HYDRIN) 12 % lotion [...] every 6 months. Last injection November 2020 [facility] CNTHERAPYon 11-19-2024 CNTHERAPY OT/PT/Speech Visit ( [facility]) LAUREN ALCARAZ ([id number]) 1940 F Date Time Provider Department 11/19/24 4:[address] [facility] Date Time Provider Department [place] 11/19/2024 4:15 PM [id number], DIANDRA [facility] Reason for Visit: Occupational Therapy [504] Primary [...] Change Date Reviewed: 11/16/2024 Reviewed by: Manan Bull RN - Fully Assessed Prescriptions as of [...] 1,000 mcg intramuscularly once every month. Vitamin S-86-xeyeeiipgodphd - ammonium lactate (LAC-HYDRIN) 12 % lotion [...] 6 months. Last injection November 2020 Normal [facility] CASE MANAGEMon 11-17-2024 CASE MANAGEM Normal [facility] CASE MANAGEM Normal [facility] CNDSon 11-17-2024 CNDS Normal [facility] ANES POSTPROC EVALon 025 ANES POSTPROC EVAL Normal [facility] ANES PRE-OPon 11-16-2024 ANES PRE-OP Normal [facility] CASE MGT INIT ASSESon 2024 CASE MGT INIT ASSES Normal [facility] CBC panel Auto (Bld)on 11-16 Erythrocyte distribution width (RBC) [Ratio] 13.7 % Normal 11.5-15.0 [facility] Comment on above: Order Comment: Speci men Type: BLOOD SPECIMENOrdering Facility: [facility] Address: [address] [place] [address] Performed By: #### 5 8410-2 ####[facility] LABCLIA [id number] [place] [address] [place] Hematocrit (Bld) [Volume fraction] 36.3 % Normal 36.0-46.0 [facility] Comment on above: Order Comment: Speci men Type: BLOOD SPECIMENOrdering Facility: [facility] Address: [address] [place] [address] Performed By: #### 5 8410-2 ####[facility] LABIA [id number] [place] [address] [place] Hemoglobin (Bld) [Mass/Vol] 11.6 g/dL Normal 11.5-15.5 [facility] Comment on above: Order Comment: Speci men Type: BLOOD SPECIMENOrdering Facility: [facility] Address: [address] [place] [address] Performed By: #### 5 8410-2 ####[facility] [id number] [place] [address] [place] MCH (RBC) [Entitic mass] 29.5 pg Normal 26.0-34.0 [facility] Comment on above: Order Comment: Speci men Type: BLOOD SPECIMENOrdering Facility: [facility] Address: [address] [place] [address] Performed By: #### 5 8410-2 ####[facility] [id number] [place] [address] [place] MCHC (RBC) [Mass/Vol] 32.0 g/dL Normal 30.5-36.0 [facility] Comment on above: Order Comment: Speci men Type: BLOOD SPECIMENOrdering Facility: [facility] Address: [address] [place] [address] Performed By: #### 5 8410-2 ####[facility] [id number] [place] [address] [place] MCV (RBC) [Entitic vol] 92.4 fL Normal 80.0-100.0 [facility] Comment on above: Order Comment: Speci men Type: BLOOD SPECIMENOrdering Facility: [facility] Address: [address] [place] [address] Performed By: #### 5 8410-2 ####[facility] LABCLIA [id number] [place] [address] [place] Nucleated RBC (Bld) [#/Vol] 10*3/uL Normal <0.01 [facility] Comment on above: Order Comment: Speci men Type: BLOOD SPECIMENOrdering Facility: [facility] Address: [address] [place] [address] Performed By: #### 5 8410-2 ####[facility] LABIA [id number] [address], [place] [address] [place] Platelet mean volume (Bld) [Entitic vol] 10.9 fL Normal 9.0-12.7 [facility] Comment on above: Order Comment: Speci men Type: BLOOD SPECIMENOrdering Facility: [facility] Address: [address] [place] [address] Performed By: #### 5 8410-2 ####[facility] LABIA [id number] [place] [id number] [place] Platelets (Bld) [#/Vol] 171 10*3/uL Normal 150-400 [facility] Comment on above: Order Comment: Speci men Type: BLOOD SPECIMENOrdering Facility: [facility] Address: [address] [place] [address] Performed By: #### 5 8410-2 ####[facility] LABCLIA [id number] [place] [id number] [place] RBC (Bld) [#/Vol] 3.93 10*6/uL Normal 3.90-5.20 [facility] Comment on above: Order Comment: Speci men Type: BLOOD SPECIMENOrdering Facility: [facility] Address: [address] [place] [address] Performed By: #### 5 8410-2 ####[facility] LABCLIA [id number] [address] [place] [address] [place] WBC (Bld) [#/Vol] 4.86 10*3/uL Normal 3.70-11.00 [facility] Comment on above: Order Comment: Speci men Type: BLOOD SPECIMENOrdering Facility: [facility] Address: [address] [place] [address] Performed By: #### 5 8410-2 ####[facility] LABCLIA [id number] [address] [place] [address] [place] Comprehensive metabolic 2000 panelon 11-16-2024 Albumin [Mass/Vol] 3.4 g/dL Low 3.9-4.9 [facility] Comment on above: Order Comment: Speci men Type: BLOOD SPECIMENOrdering Facility: [facility] Address: [address] [place] [address] Performed By: #### 2 4323-8, 2777, ####[facility] LABCLIA [id number] [place] [id number] [place] ALP [Catalytic activity/Vol] 148 U/L High 34-123 [facility] Comment on above: Order Comment: Speci men Type: BLOOD SPECIMENOrdering Facility: [facility] Address: [address] [place] [address] Performed By: #### 2 4323-8, 2777-1, ####[facility] LABCLIA [id number] [address], [facility] [place] ALT [Catalytic activity/Vol] 27 U/L Normal 7-38 [facility] Comment on above: Order Comment: Speci men Type: BLOOD SPECIMENOrdering Facility: [facility] Address: [address] [place] [address] Performed By: #### 2 4323-8, 27771, ####[facility] LABCLIA [id number] [address] [place] [address] [place] Anion gap [Moles/Vol] 10 mmol/L Normal 8-15 [facility] Comment on above: Order Comment: Speci men Type: BLOOD SPECIMENOrdering Facility: [facility] Address: [address] [place], [place] [address] Performed By: #### 2 4323-8, 2776-08, ####[facility] LABCLIA [id number] [place] [id number] [place] AST [Catalytic activity/Vol] 25 U/L Normal 13-35 [facility] Comment on above: Order Comment: Speci men Type: BLOOD SPECIMENOrdering Facility: [facility] Address: [address] [place] [address] Performed By: #### 2 4323-8, 2776-08, ####[facility] LABCLIA [id number] [place] [address] [place] Bilirubin [Mass/Vol] 0.4 mg/dL Normal 0.2-1.3 [facility] Comment on above: Order Comment: Speci men Type: BLOOD SPECIMENOrdering Facility: [facility] Address: [address] [place] [address] Performed By: #### 2 4323-8, 2776-08, ####[facility] LABCLIA [id number] [place] [address] [place] Calcium [Mass/Vol] 8.0 mg/dL Low 8.5-10.2 [facility] Comment on above: Order Comment: Speci men Type: BLOOD SPECIMENOrdering Facility: [facility] Address: [address] [place], [place] [address] Performed By: #### 2 4323-8, 2776-08, ####[facility] LABCLIA [id number] [facility] [address] [address] [place] Chloride [Moles/Vol] 105 mmol/L Normal 98-107 [facility] Comment on above: Order Comment: Speci men Type: BLOOD SPECIMENOrdering Facility: [facility] Address: [address] [place], [place] [address] Performed By: #### 2 4323-8, 2776-08, ####[facility] LABCLIA [id number] [address] [address] [place] CO2 [Moles/Vol] 21 mmol/L Low 22-30 [facility] Comment on above: Order Comment: Speci men Type: BLOOD SPECIMENOrdering Facility: [facility] Address: [address] [place] [address] Performed By: #### 2 4323-8, 2776-08, ####[facility] LABCLIA [id number] [address] [address] [place] Creatinine [Mass/Vol] 0.75 mg/dL Normal 0.58-0.96 [facility] Comment on above: Order Comment: Speci men Type: BLOOD SPECIMENOrdering Facility: [facility] Address: [address] [place] [address] Performed By: #### 2 4323-8, 2776-08, ####[facility] LABCLIA [id number] [address] [address] [place] Creatinine and Glomerular filtration rate.predicted panel (S/P/Bld) 80 mL/min/1.73m??? Normal >=60 [facility] Comment on above: Order Comment: Speci men Type: BLOOD SPECIMENOrdering Facility: [facility] Address: [address] [place] [address] Result Comment: Brandy mated Glomerular Filtration Rate [...] actual GFR. Performed By: #### 2 4323-8, 27702-15, ####[facility] LABCLIA [id number] [address] [address] [place] Glucose [Mass/Vol] 156 mg/dL High 74-99 [facility] Comment on above: Order Comment: Speci men Type: BLOOD SPECIMENOrdering Facility: [facility] Address: [address] [place] [address] Result Comment: The [place] Diabetes Association (ADA) provides guidance for cutoff [...] Standards of Medical Care in Diabetes 2016, [place] [employer] Association. Diabetes Care. 2016.39(Suppl 1). Performed By: #### 2 4323-8, 2776-08, ####[facility] LABCLIA [id number] [address] [address] [place] Potassium [Moles/Vol] 4.8 mmol/L Normal 3.7-5.1 [facility] Comment on above: Order Comment: Speci men Type: BLOOD SPECIMENOrdering Facility: [facility] Address: [address] [place] [address] Performed By: #### 2 4323-8, 27702-15, ####[facility] LABIA [id number] [address] [address] [place] Protein [Mass/Vol] 6.0 g/dL Low 6.3-8.0 [facility] Comment on above: Order Comment: Speci men Type: BLOOD SPECIMENOrdering Facility: [facility] Address: [address] [place], [place] [address] Performed By: #### 2 4323-8, 27771, ####[facility] LABIA [id number] [place] [address] [place] Sodium [Moles/Vol] 136 mmol/L Normal 136-144 [facility] Comment on above: Order Comment: Speci men Type: BLOOD SPECIMENOrdering Facility: [facility] Address: [address] [place], [place] [address] Performed By: #### 2 4323-8, 27702-15, ####[facility] LABIA [id number] [place] [address] [place] Urea nitrogen [Mass/Vol] 13 mg/dL Normal 7-21 [facility] Comment on above: Order Comment: Speci men Type: BLOOD SPECIMENOrdering Facility: [facility] Address: [address] [place] [address] Performed By: #### 2 4323-8, 27702-15, ####[facility] [id number] [place] [address] [place] ERCPon 11-16-2024 ERCP Normal [facility] Magnesium SerPl-mCncon 11-16 Magnesium [Mass/Vol] 1.8 mg/dL Normal 1.7-2.3 [facility] Comment on above: Order Comment: Speci men Type: BLOOD SPECIMENOrdering Facility: [facility] Address: [address] [place], [place] [address] Performed By: #### 2 4323-8, 27702-15, ####[facility] LABIA [id number] [address] [address] [place] NURSING PROGon 11-16-2024 NURSING PROG Normal [facility] NURSING PROG Normal [facility] NUTRITIONon 11-16-2024 NUTRITION Normal [facility] PT panel Coag (PPP)on 2024 INR Coag (PPP) [Relative time] 1.2 {INR} Normal 0.9-1.3 [facility] Comment on above: Order Comment: Ramirez gamez Type: BLOOD SPECIMENOrdering Facility: [facility] Address: [address] [place] [address] Result Comment: Brook min K Antagonist (VKA) Therapeutic Range: INR 2 to 3 (Target INR of 2.5)Note: For patients treated with VKA drugs, such as warfarin, the [place] [employer] 2012 Guideline recommends [...] al. Chest 2012, 141:7S-47SNishimura RA, et al. [facility] 2017, 70: 252-289 Performed By: #### 3 4528-0, 48048-6 ####[facility] LABIA [id number] [place] [id number] [place] PT Coag (PPP) [Time] 13.3 s High 9.7-13.0 [facility] Comment on above: Order Comment: Ramirez gamez Type: BLOOD SPECIMENOrdering Facility: [facility] Address: [address] [place] [address] Performed By: #### 3 4528-0, 13448-3 ####[facility] LABIA [id number] [address] [address] [place] Phosphate SerPl-mCncon 11-16 Phosphate [Mass/Vol] 2.5 mg/dL Low 2.7-4.8 [facility] Comment on above: Order Comment: Speci men Type: BLOOD SPECIMENOrdering Facility: [facility] Address: [address] [place] [address] Performed By: #### 2 4323-8, 2777-1, 15545-6 ####[facility] LABCLIA [id number] [place] [address] [place] aPTT PPPon 11-16-2024 aPTT Coag (PPP) [Time] 34.8 s High 23.0-32.4 [facility] Comment on above: Order Comment: Speci men Type: BLOOD SPECIMENOrdering Facility: [facility] Address: [address] [place] [address] Performed By: #### 3 4528-0, 71234-0 ####[facility] LABIA [id number] [place] [address] [place] CBC panel Auto (Bld)on 11-15 Erythrocyte distribution width (RBC) [Ratio] 13.8 % Normal 11.5-15.0 [facility] Comment on above: Order Comment: Speci men Type: BLOOD SPECIMENOrdering Facility: [facility] Address: [address] [place] [address] Performed By: #### 5 8410-2 ####[facility] LABIA [id number] [place] [address] [place] Hematocrit (Bld) [Volume fraction] 35.0 % Low 36.0-46.0 [facility] Comment on above: Order Comment: Speci men Type: BLOOD SPECIMENOrdering Facility: [facility] Address: [address] [place] [address] Performed By: #### 5 8410-2 ####[facility] LABCLIA [id number] [place] [address] [place] Hemoglobin (Bld) [Mass/Vol] 10.7 g/dL Low 11.5-15.5 [facility] Comment on above: Order Comment: Speci men Type: BLOOD SPECIMENOrdering Facility: [facility] Address: [address] [place] [address] Performed By: #### 5 8410-2 ####[facility] LABIA [id number] [place] [address] [place] MCH (RBC) [Entitic mass] 28.6 pg Normal 26.0-34.0 [facility] Comment on above: Order Comment: Speci men Type: BLOOD SPECIMENOrdering Facility: [facility] Address: [address] [place] [address] Performed By: #### 5 8410-2 ####[facility] [id number] [place] [address] [place] MCHC (RBC) [Mass/Vol] 30.6 g/dL Normal 30.5-36.0 [facility] Comment on above: Order Comment: Speci men Type: BLOOD SPECIMENOrdering Facility: [facility] Address: [address] [place] [address] Performed By: #### 5 8410-2 ####[facility] [id number] [place] [address] [place] MCV (RBC) [Entitic vol] 93.6 fL Normal 80.0-100.0 [facility] Comment on above: Order Comment: Speci men Type: BLOOD SPECIMENOrdering Facility: [facility] Address: [address] [place] [address] Performed By: #### 5 8410-2 ####[facility] LABIA [id number] [place] [address] [place] Nucleated RBC (Bld) [#/Vol] 10*3/uL Normal <0.01 [facility] Comment on above: Order Comment: Speci men Type: BLOOD SPECIMENOrdering Facility: [facility] Address: [address] [place] [address] Performed By: #### 5 8410-2 ####[facility] LABCLIA [id number] [address] [place] [address] [place] Platelet mean volume (Bld) [Entitic vol] 10.5 fL Normal 9.0-12.7 [facility] Comment on above: Order Comment: Speci men Type: BLOOD SPECIMENOrdering Facility: [facility] Address: [address] [place] [address] Performed By: #### 5 8410-2 ####[facility] LABCLIA [id number] [address] [place] [address] [place] Platelets (Bld) [#/Vol] 156 10*3/uL Normal 150-400 [facility] Comment on above: Order Comment: Speci men Type: BLOOD SPECIMENOrdering Facility: [facility] Address: [address] [place] [address] Performed By: #### 5 8410-2 ####[facility] LABIA [id number] [address] [place] [address] [place] RBC (Bld) [#/Vol] 3.74 10*6/uL Low 3.90-5.20 [facility] Comment on above: Order Comment: Speci men Type: BLOOD SPECIMENOrdering Facility: [facility] Address: [address] [place] [address] Performed By: #### 5 8410-2 ####[facility] LABCLIA [id number] [address] [place] [address] [place] WBC (Bld) [#/Vol] 4.56 10*3/uL Normal 3.70-11.00 [facility] Comment on above: Order Comment: Speci men Type: BLOOD SPECIMENOrdering Facility: [facility] Address: [address] [place] [address] Performed By: #### 5 8410-2 ####[facility] LABCLIA [id number] [address] [address] [place] CNPNon 11-15-2024 CNPN Normal [facility] Comprehensive metabolic 2000 panelon 11-15-2024 Albumin [Mass/Vol] 3.8 g/dL Low 3.9-4.9 [facility] Comment on above: Order Comment: Speci men Type: BLOOD SPECIMENOrdering Facility: [facility] Address: [address] [place] [address] Performed By: #### 2 4323-8 ####[facility] LABCLIA [id number] [place] [id number] [place] ALP [Catalytic activity/Vol] 161 U/L High 34-123 [facility] Comment on above: Order Comment: Speci men Type: BLOOD SPECIMENOrdering Facility: [facility] Address: [address] [place] [address] Performed By: #### 2 4323-8 ####[facility] LABCLIA [id number] [place] [address] [place] ALT [Catalytic activity/Vol] 33 U/L Normal 7-38 [facility] Comment on above: Order Comment: Speci men Type: BLOOD SPECIMENOrdering Facility: [facility] Address: [address] [place] [address] Performed By: #### 2 4323-8 ####[facility] LABCLIA [id number] [place] [id number] [place] Anion gap [Moles/Vol] 10 mmol/L Normal 8-15 [facility] Comment on above: Order Comment: Speci men Type: BLOOD SPECIMENOrdering Facility: [facility] Address: [address] [place] [address] Performed By: #### 2 4323-8 ####[facility] [facility] LABCLIA [id number] [place] [id number] [place] AST [Catalytic activity/Vol] 29 U/L Normal 13-35 [facility] Comment on above: Order Comment: Speci men Type: BLOOD SPECIMENOrdering Facility: [facility] Address: [address] [place], [place] [address] Performed By: #### 2 4323-8 ####[facility] LABCLIA [id number] [place] [id number] [place] Bilirubin [Mass/Vol] 0.3 mg/dL Normal 0.2-1.3 [facility] Comment on above: Order Comment: Speci men Type: BLOOD SPECIMENOrdering Facility: [facility] Address: [address] [place] [address] Performed By: #### 2 4323-8 ####[facility] LABCLIA [id number] [place] [address] [place] Calcium [Mass/Vol] 8.4 mg/dL Low 8.5-10.2 [facility] Comment on above: Order Comment: Speci men Type: BLOOD SPECIMENOrdering Facility: [facility] Address: [address] [place] [address] Performed By: #### 2 4323-8 ####[facility] LABCLIA [id number] [place] [address] [place] Chloride [Moles/Vol] 106 mmol/L Normal 98-107 [facility] Comment on above: Order Comment: Speci men Type: BLOOD SPECIMENOrdering Facility: [facility] Address: [address] [place] [address] Performed By: #### 2 4323-8 ####[facility] LABCLIA [id number] [facility] [place] [id number] [place] CO2 [Moles/Vol] 22 mmol/L Normal 22-30 [facility] Comment on above: Order Comment: Speci men Type: BLOOD SPECIMENOrdering Facility: [facility] Address: [address] [place], [place] [address] Performed By: #### 2 4323-8 ####[facility] LABCLIA [id number] [place] [id number] [place] OF [facility] Creatinine [Mass/Vol] 0.77 mg/dL Normal 0.58-0.96 [facility] Comment on above: Order Comment: Ramirez gamez Type: BLOOD SPECIMENOrdering Facility: [facility] Address: [address] [place] [address] Performed By: #### 2 4323-8 ####[facility] [id number] [address] OF [facility] Creatinine and Glomerular filtration rate.predicted panel (S/P/Bld) 77 mL/min/1.73m??? Normal >=60 [facility] Comment on above: Order Comment: Ramirez gamez Type: BLOOD SPECIMENOrdering Facility: [facility] Address: [address] [place] [address] Result Comment: Brandy mated Glomerular Filtration Rate [...] actual GFR. Performed By: #### 2 4323-8 ####[facility] LABIA [id number] [place] [address] [place] Glucose [Mass/Vol] 120 mg/dL High 74-99 [facility] Comment on above: Order Comment: Ramirez gamez Type: BLOOD SPECIMENOrdering Facility: [facility] Address: [address] [place] [address] Result Comment: The [place] Diabetes Association (ADA) provides guidance for cutoff [...] Standards of Medical Care in Diabetes 2016, [place] Diabetes Association. Diabetes Care. 2016.39(Suppl 1). Performed By: #### 2 4323-8 ####[facility] LABCLIA [id number] [address] [address] [place] Potassium [Moles/Vol] 4.2 mmol/L Normal 3.7-5.1 [facility] Comment on above: Order Comment: Speci men Type: BLOOD SPECIMENOrdering Facility: [facility] Address: [address] [place] [address] Performed By: #### 2 432-8 ####[facility] LABIA [id number] [address] [address] [place] Protein [Mass/Vol] 6.4 g/dL Normal 6.3-8.0 [facility] Comment on above: Order Comment: Speci men Type: BLOOD SPECIMENOrdering Facility: [facility] Address: [address] [place], [place] [address] Performed By: #### 2 432-8 ####[facility] LABIA [id number] [address] [address] [place] Sodium [Moles/Vol] 138 mmol/L Normal 136-144 [facility] Comment on above: Order Comment: Speci men Type: BLOOD SPECIMENOrdering Facility: [facility] Address: [address] [place] [address] Performed By: #### 2 4323-8 ####[facility] LABCLIA [id number] [address] [address] [place] Urea nitrogen [Mass/Vol] 16 mg/dL Normal 7-21 [facility] Comment on above: Order Comment: Speci men Type: BLOOD SPECIMENOrdering Facility: [facility] Address: [address] [place] [address] Performed By: #### 2 4323-8 ####[facility] [id number] [place] [address] [place] HISTORY PHYSICALon HISTORY PHYSICAL Normal [facility] NURSING PROGon 11-15-2024 NURSING PROG Normal [facility] PT panel Coag (PPP)on 2024 INR Coag (PPP) [Relative time] 1.2 {INR} Normal 0.9-1.3 [facility] Comment on above: Order Comment: Speci men Type: BLOOD SPECIMENOrdering Facility: [facility] Address: [address] [place] [address] Result Comment: Brook min K Antagonist (VKA) Therapeutic Range: INR 2 to 3 (Target INR of 2.5)Note: For patients treated with VKA drugs, such as warfarin, the [place] [employer]icians 2012 Guideline recommends [...] of 3).Tanja GH, et al. Chest 2012, 141:7S-47SYakov RA, et al. [facility] 2017, 70: 252-289 Performed By: #### 3 4528-0, 52268-6 ####[facility] [id number] [place] [id number] [place] PT Coag (PPP) [Time] 12.8 s Normal 9.7-13.0 [facility] Comment on above: Order Comment: Speci men Type: BLOOD SPECIMENOrdering Facility: [facility] Address: [address] [place] [address] Performed By: #### 3 4528-0, 29725-4 ####[facility] LABCLIA [id number] [place] [address] [place] TYPE + SCREENon 11-15-2024 ABO A Normal [facility] Comment on above: Order Comment: Speci men Type: BLOOD SPECIMENOrdering Facility: [facility] Address: [address] [place] [address] Performed By: #### T SCR ####[facility] BLOOD BANKCLIA [id number] [place] [address] [place] Rh Nom (Bld) Positive Normal [facility] Comment on above: Order Comment: Speci men Type: BLOOD SPECIMENOrdering Facility: [facility] Address: [address] [place] [address] Performed By: #### T SCR ####[facility] BLOOD BANKCLIA [id number] [place] [address] [place] TYPE AND SCREEN EXPIRATION 11/18/2024 23:59 Normal [facility] Comment on above: Order Comment: Speci men Type: BLOOD SPECIMENOrdering Facility: [facility] Address: [address] [place] [address] Performed By: #### T SCR ####CC [facility] BLOOD BANKCLIA [id number] [place] [address] [place] aPTT PPPon 11-15-2024 aPTT Coag (PPP) [Time] 29.8 s Normal 23.0-32.4 [facility] Comment on above: Order Comment: Speci men Type: BLOOD SPECIMENOrdering Facility: [facility] Address: [address] [place] [address] Performed By: #### 3 4528-0, 45857-0 ####[facility] LABCLIA [id number] [place] [address] [place] CNPNon 11-12-2024 CNPN Normal [facility] CNTHERAPYon 03-28-2025 CNTHERAPY OT/PT/Speech Visit ( [facility]) LILLIANLAUREN Dinero ([id number]) 1940 F Date Time Provider Department 11/12/24 3:[address] [facility] Date Time Provider Department [place] 11/12/2024 3:30 PM [id number], DIANDRA [facility] Reason for Visit: Occupational Therapy [...] 1,000 mcg intramuscularly once every month. Vitamin T-65-utytwagwvyeecd - ammonium lactate (LAC-HYDRIN) 12 % lotion [...] every 6 months. Last injection November [address] [facility] [address] ABD/PEL W IVCONon 025 CT ABD/PEL W IVCON Invalid Interpretation Code [facility] Chest PA and Lateralon 11-09 Chest PA and Lateral [facility] Imaging Services [address] [place] [address] Chest PA and Lateral MR#: [id number] Acct: [id number] Name: LAUREN ALCARAZ Rep #: [id number] : 1940 F 84 From: Harjinder Doherty MD PCP: Dr. Chema Perry MD Status: [facility] CLI Study: Chest PA and Lateral Date of Exam: 11/09/24 Exam# [id number] Ordering Dr: Chema Perry MD EXAM: XR [...] Lateral IMPRESSION: Suggestion of COPD. Reading Location: [facility] CC: Dr. Chema Perry MD Hedis Analyst: Signed Normal [facility] CBC panel Auto (Bld)on 11-08 Erythrocyte distribution width (RBC) [Ratio] 14.0 % Normal 11.5-15.0 [facility] Comment on above: Order Comment: Speci men Type: BLOOD SPECIMENOrdering Facility: [facility] Address: [address] [place] [address] Performed By: #### 5 8410-2 ####[facility] [id number] [place] [address] [place] Hematocrit (Bld) [Volume fraction] 33.8 % Low 36.0-46.0 [facility] Comment on above: Order Comment: Speci men Type: BLOOD SPECIMENOrdering Facility: [facility] Address: [address] [place] [address] Performed By: #### 5 8410-2 ####[facility] [id number] [place] [address] [place] Hemoglobin (Bld) [Mass/Vol] 10.7 g/dL Low 11.5-15.5 [facility] Comment on above: Order Comment: Speci men Type: BLOOD SPECIMENOrdering Facility: [facility] Address: [address] [place] [address] Performed By: #### 5 8410-2 ####[facility] [id number] [place] [address] [place] MCH (RBC) [Entitic mass] 29.6 pg Normal 26.0-34.0 [facility] Comment on above: Order Comment: Speci men Type: BLOOD SPECIMENOrdering Facility: [facility] Address: [address] [place] [address] Performed By: #### 5 8410-2 ####[facility] SYSTEMLIA [id number] [place] [address] [place] MCHC (RBC) [Mass/Vol] 31.7 g/dL Normal 30.5-36.0 [facility] Comment on above: Order Comment: Speci men Type: BLOOD SPECIMENOrdering Facility: [facility] Address: [address] [place] [address] Performed By: #### 5 8410-2 ####[facility] CENTERRENETTA [id number] [place] [address] [place] MCV (RBC) [Entitic vol] 93.6 fL Normal 80.0-100.0 [facility] Comment on above: Order Comment: Speci men Type: BLOOD SPECIMENOrdering Facility: [facility] Address: [address] [place] [address] Performed By: #### 5 8410-2 ####[facility] [id number] [place] [address] [place] Nucleated RBC (Bld) [#/Vol] 10*3/uL Normal <0.01 [facility] Comment on above: Order Comment: Speci men Type: BLOOD SPECIMENOrdering Facility: [facility] Address: [address] [place] [address] Performed By: #### 5 8410-2 ####[facility] CENTERMORIAHLI [id number] [place] [address] [place] Platelet mean volume (Bld) [Entitic vol] 10.2 fL Normal 9.0-12.7 [facility] Comment on above: Order Comment: Speci men Type: BLOOD SPECIMENOrdering Facility: [facility] Address: [address] [place] [address] Performed By: #### 5 8410-2 ####[facility] [id number] [place] [address] [place] Platelets (Bld) [#/Vol] 188 10*3/uL Normal 150-400 [facility] Comment on above: Order Comment: Speci men Type: BLOOD SPECIMENOrdering Facility: [facility] Address: [address] [place] [address] Performed By: #### 5 8410-2 ####[facility] [id number] [place] [address] [place] RBC (Bld) [#/Vol] 3.61 10*6/uL Low 3.90-5.20 [facility] Comment on above: Order Comment: Speci men Type: BLOOD SPECIMENOrdering Facility: [facility] Address: [address] [place] [address] Performed By: #### 5 8410-2 ####[facility] CENTERNCA [id number] [place] [address] [place] WBC (Bld) [#/Vol] 4.89 10*3/uL Normal 3.70-11.00 [facility] Comment on above: Order Comment: Speci men Type: BLOOD SPECIMENOrdering Facility: [facility] Address: [address] [place] [address] Performed By: #### 5 8410-2 ####[facility]CL[facility] [id number] [place] [address] [place] CREATININE BLDon 11-08-2024 Creatinine [Mass/Vol] 0.79 mg/dL Normal 0.58-0.96 [facility] Comment on above: Order Comment: Speci men Type: BLOOD SPECIMENOrdering Facility: [facility] Address: [address] [place] [address] Performed By: #### C RET1 ####[facility]ENT[facility]CLIA [id number] [place] [address] [place] Creatinine and Glomerular filtration rate.predicted panel (S/P/Bld) 75 mL/min/1.73m??? Normal >=60 [facility] Comment on above: Order Comment: Speci men Type: BLOOD SPECIMENOrdering Facility: [facility] Address: [place] [address] Result Comment: Brandy mated Glomerular Filtration Rate [...] actual GFR. Performed By: #### C RET1 ####[facility] RAFITACLEVEL[facility] [id number] [address] [place] CNTHERAPYon 11-05-2024 CNTHERAPY OT/PT/Speech Visit ( [facility]) LAUREN ALCARAZ ([id number]) 1940 F Date Time Provider Department 11/05/24 2:[address] [facility] Date Time Provider Department Center 11/05/2024 2:00 PM [id number], DIANDRA [facility] Reason for Visit: Occupational Therapy [504] [...] 1,000 mcg intramuscularly once every month. Vitamin X-92-measgmjgrkhiow - ammonium lactate (LAC-HYDRIN) 12 % lotion [...] GLIDE ULNAR last updated by [address]ha Street OTR/Tori on 11/05/2024 2:13 PM Normal [facility] CNOVon 11-03-2024 CNOV Normal [facility] VISUAL FIELD 24-2 OU (BOTH E YES)on 11-01-2024 [facility] Radiology Study observation (narrative) [facility] [id number] 10-29-2024 [id number] HNO ID: [id number] Author: RADHA STREET OTR/L Service: ? Author Type: Occupational Therapist Type: [id number] Filed: 10/29/2024 12:32 Note Text: [facility] Rehabilitation and Sports Therapy Occupational Therapy Plan of Care Certification Patient Name: Lauren Alcaraz : 1940 [facility] #: [id number] Date: 10/29/2024 To: Laisha Lizarraga, APR* From [...] 10/29/24 Patient will complete HEP at Modified [place] level. Patient will increase bilateral frame repairer and pinches by 5# to improve function [...] Planned: 8 Planned Treatment Interventions: Therapeutic exercise (46333), Neuromuscular re-education (94809), Self-intermediate management (23815), Patient/Family/Caregiver Education PLAN FOR NEXT VISIT:assess different writing utensils, proximal stability? button hook, gentle frame repairer strengthening Patient demonstrates good understanding of plan of care and treatment. The above goals and plan of care were discussed and agreed upon by patient/family. For further details regarding this patient refer to the Occupational Therapy electronically documented visit dated 10/29/2024. Provider Attestation I have reviewed the treatment plan for Lauren Alcaraz, CCF# [id number] for the period of 10/29/24 -- 12/28/24, established on 10/29/2024. Signature certifies the need for therapy services. [facility] CNOVon 10-29-2024 [facility]NFost[facility] HospitalPatt [facility]2024 [facility] (GENLUH) LAUREN ALCARAZ ([id number]) 1940 F Date Time Provider Department 10/29/24 ANILA DE PAZ GENLU During your visit today, we recorded the following information about you: Sandie Messina 10/29/2024 2:26 PM Signed Incoming call from [facility] pharmacy states the compound that was sent [...] 1,000 mcg intramuscularly once every month. Vitamin X-00-zbapqrwhvlezqg - ammonium lactate (LAC-HYDRIN) 12 % lotion [...] of malignant neop (more content not included)... [facility] CNTHERAPYon 10-29-2024 CNTHERAPY OT/PT/Speech Visit ( [facility]) LAUREN ALCARAZ ([id number]) 1940 F Date Time Provider Department 10/29/24 10:[address] [facility] Date Time Provider Department Center 10/29/2024 10:45 AM [id number], DIANDRA [facility] Reason for Visit: OT EVAL [748] Primary [...] 1,000 mcg intramuscularly once every month. Vitamin Z-77-cjfcsxvbejkioq - ammonium lactate (LAC-HYDRIN) 12 % lotion [...] every 6 months. Last injection November 2020 [facility] Pulmonary Visit Reporton Pulmonary Visit Report [facility] Pulmonary Medicine of [address] [place] [address] OFFICE VISIT Date of Service: 10/22/24 MR#: [id number] Acct: [id number] Name: LAUREN ALCARAZ Rep #: [id number] : 1940 Provider: BURAK Vincent Age/Sex: 84/F Location: [facility].PMW Status: Signed Assessment and Plan Assessment and Plan (1) Bronchiectasis: Status: Chronic Qualifiers: Bronchiectasis type: uncomplicated Qualified Code(s): J47.9 - Bronchiectasis, uncomplicated Comment: Lingular subsegment Plan: Stable, no signs of exacerbation of bronchiectasis today. No change in maintenance medications, she is only requiring fxwt-wwj-uhkulvn antihistamine. No additional testing at this time. [...] air Intake Visit Reasons: 6 M FU Automatic Serging Machine Operator Required: No DME Vendor: o2- N[employer] [...] denosumab 60 mg/mL subcutaneous 60 mg subcut [id number] #1 mL 10/22/24 Rx syringe (Prolia) BD [...] mL 4 (more content not included)... Normal [facility] Breast imaging reportOrdered By: Sam Mac on 10-18-2024 Study report [facility] Imaging Services [address] [place] [address] SCRN MAMM (CAD)W/EVERETT BILAT MR#: [id number] Acct: [id number] Name: LAUREN ALCARAZ Rep #: [id number] : 1940 F 84 From: Cody Mac MD PCP: Dr. Chema Perry MD Status: [facility] Study:SCRN MAMM (CAD)W/EVERETT BILAT Date of Exa m: 10/18/24 Exam# [id number] Ordering Dr: Chema Perry MD PROCEDURE: SCRN [...] of the results by letter. Reading Location: [facility] CC: Dr. Chema Perry MD ~ Hedis Analyst: Signed [facility] SCRN MAMM (CAD)W/EVERETT BILATo n 10-18-2024 SCRN MAMM (CAD)W/EVERETT BILAT [facility] Services [address] [place] [address] SCRN MAMM (CAD)W/EVERETT BILAT MR#: [id number] Acct: [id number] Name: LAUREN ALCARAZ Rep #: [id number] : 1940 F 84 From: Sam stafford MD PCP: Dr. Chema Perry MD Status: [facility] Study: SCRN MAMM (CAD)W/EVERETT BILAT Date of Exam: 11/09 Exam# [id number] Ordering Dr: Chema Perry MD PROCEDURE: SCRN [...] of the results by letter. Reading Location: [facility] CC: Dr. Chema Perry MD Hedis Analyst: Signed Normal [facility] MR/BMS.IMBon 10-14-2024 MR/BMS.IMB [facility] [address] [facility] [place] [address] OFFICE VISIT Date of Service: 10/14/24 MR#: [id number] Acct: [id number] Name: LAUREN ALCARAZ Rep #: [id number] : 1940 Provider: Dr. Chema williamson MD Age/Sex: 84/F Location[facility] Status: Signed Intake Vital Signs 09/18/24 08:37 10/14/24 13:18 Height 4 ft 7 in 4 ft 7 in Weight: 105 lb 4 oz BMI 24.4 BP 113/79 Blood Pressure Location Lt brachial Position Sitting Respiration 16 Pulse 78 Pulse Source Monitor Temp 98.4 F Temp Source Temporal Pulse Oximetry (%) 90 Oxygen Delivery Method room air Intake Visit Reasons: F/U Usp Discharge Chief Complaint: F/U intermediate discharge Automatic Serging Machine Operator Required: No Accompanied by: Self Is patient [...] denosumab 60 mg/mL subcutaneous 60 mg subcut [id number] #1 mL 10/14/24 Rx syringe (Prolia) BD [...] you fallen in the past year?: No [facility] Medical History Open wound of right lower extremity Contusion of right foot Kyphoscoliosis deform (more content not included)... Normal [facility] CNOVon 10-13-2024 CNOV Normal [facility] CNOVon 10-08-2024 CNOV Normal [facility] CASE MANAGEMon 09-23-2024 CASE MANAGEM Normal [facility] CASE MANAGEM Normal [facility] CASE MANAGEM Normal [facility] CBC panel Auto (Bld)on 09-23 Erythrocyte distribution width (RBC) [Ratio] 13.6 % Normal 11.5-15.0 [facility] Comment on above: Order Comment: Speci men Type: BLOOD SPECIMENOrdering Facility: [facility] Address: [address] [place] [address] Performed By: #### 5 8410-2 ####[facility]PRO[facility] [id number] [place] [address] [place] Hematocrit (Bld) [Volume fraction] 33.2 % Low 36.0-46.0 [facility] Comment on above: Order Comment: Speci men Type: BLOOD SPECIMENOrdering Facility: [facility] Address: [address] [place] [address] Performed By: #### 5 8410-2 ####[facility] LABIA [id number] [place] [address] [place] Hemoglobin (Bld) [Mass/Vol] 10.7 g/dL Low 11.5-15.5 [facility] Comment on above: Order Comment: Speci men Type: BLOOD SPECIMENOrdering Facility: [facility] Address: [address] [place] [address] Performed By: #### 5 8410-2 ####[facility] LABIA [id number] [place] [address] [place] MCH (RBC) [Entitic mass] 29.2 pg Normal 26.0-34.0 [facility] Comment on above: Order Comment: Speci men Type: BLOOD SPECIMENOrdering Facility: [facility] Address: [address] [place] [address] Performed By: #### 5 8410-2 ####[facility] LABIA [id number] [place] [address] [place] MCHC (RBC) [Mass/Vol] 32.2 g/dL Normal 30.5-36.0 [facility] Comment on above: Order Comment: Speci men Type: BLOOD SPECIMENOrdering Facility: [facility] Address: [address] [place] [address] Performed By: #### 5 8410-2 ####[facility] LABIA [id number] [place] [address] [place] MCV (RBC) [Entitic vol] 90.5 fL Normal 80.0-100.0 [facility] Comment on above: Order Comment: Speci men Type: BLOOD SPECIMENOrdering Facility: [facility] Address: [address] [place] [address] Performed By: #### 5 8410-2 ####[facility] LABIA [id number] [place] [address] [place] Nucleated RBC (Bld) [#/Vol] 10*3/uL Normal <0.01 [facility] Comment on above: Order Comment: Speci men Type: BLOOD SPECIMENOrdering Facility: [facility] Address: [address] [place] [address] Performed By: #### 5 8410-2 ####[facility] LABIA [id number] [place] [address] [place] Platelet mean volume (Bld) [Entitic vol] 10.8 fL Normal 9.0-12.7 [facility] Comment on above: Order Comment: Speci men Type: BLOOD SPECIMENOrdering Facility: [facility] Address: [address] [place] [address] Performed By: #### 5 8410-2 ####[facility] LABCLIA [id number] [place] [address] [place] Platelets (Bld) [#/Vol] 150 10*3/uL Normal 150-400 [facility] Comment on above: Order Comment: Speci men Type: BLOOD SPECIMENOrdering Facility: [facility] Address: [address] [place] [address] Performed By: #### 5 8410-2 ####[facility] LABIA [id number] [place] [address] [place] RBC (Bld) [#/Vol] 3.67 10*6/uL Low 3.90-5.20 [facility] Comment on above: Order Comment: Speci men Type: BLOOD SPECIMENOrdering Facility: [facility] Address: [address] [place] [address] Performed By: #### 5 8410-2 ####[facility] LABIA [id number] [place] [address] [place] WBC (Bld) [#/Vol] 5.57 10*3/uL Normal 3.70-11.00 [facility] Comment on above: Order Comment: Speci men Type: BLOOD SPECIMENOrdering Facility: [facility] Address: [address] [place] [address] Performed By: #### 5 8410-2 ####[facility] LABIA [id number] [place] [address] [place] CNDSon 09-23-2024 CNDS Normal [facility] Comprehensive metabolic 2000 panelon 09-23-2024 Albumin [Mass/Vol] 3.3 g/dL Low 3.9-4.9 [facility] Comment on above: Order Comment: Speci men Type: BLOOD SPECIMENOrdering Facility: [facility] Address: [address] [place] [address] Performed By: #### 1 9123-9, 43608-1, 2777-1 ####[facility] LABCLIA [id number] [place] [address] [place] ALP [Catalytic activity/Vol] 71 U/L Normal 34-123 [facility] Comment on above: Order Comment: Speci men Type: BLOOD SPECIMENOrdering Facility: [facility] Address: [address] [place] [address] Performed By: #### 1 9123-9, 89530-7, 2777-1 ####[facility] LABCLIA [id number] [place] [address] [place] ALT [Catalytic activity/Vol] 25 U/L Normal 7-38 [facility] Comment on above: Order Comment: Speci men Type: BLOOD SPECIMENOrdering Facility: [facility] Address: [address] [place] [address] Performed By: #### 1 9123-9, 99930-7, 2777-1 ####[facility] LABCLIA [id number] [place] [address] [place] Anion gap [Moles/Vol] 8 mmol/L Normal 8-15 [facility] Comment on above: Order Comment: Speci men Type: BLOOD SPECIMENOrdering Facility: [facility] Address: [address] [place] [address] Performed By: #### 1 9123-9, 58168-1, 2777- ####[facility] LABCLIA [id number] [place] [address] [place] AST [Catalytic activity/Vol] 30 U/L Normal 13-35 [facility] Comment on above: Order Comment: Speci men Type: BLOOD SPECIMENOrdering Facility: [facility] Address: [address] [place] [address] Performed By: #### 1 9123-9, 46659-0, 2777-1 ####[facility] LABCLIA [id number] [place] [address] [place] Bilirubin [Mass/Vol] 0.5 mg/dL Normal 0.2-1.3 [facility] Comment on above: Order Comment: Speci men Type: BLOOD SPECIMENOrdering Facility: [facility] Address: [address] [place] [address] Performed By: #### 1 9123-9, 24942-8, 2776-08 ####[facility] LABCLIA [id number] [place] [address] [place] Calcium [Mass/Vol] 8.1 mg/dL Low 8.5-10.2 [facility] Comment on above: Order Comment: Speci men Type: BLOOD SPECIMENOrdering Facility: [facility] Address: [address] [place] [address] Performed By: #### 1 9123-9, , 2776-08 ####[facility] LABCLIA [id number] [place] [address] [place] Chloride [Moles/Vol] 102 mmol/L Normal 98-107 [facility] Comment on above: Order Comment: Speci men Type: BLOOD SPECIMENOrdering Facility: [facility] Address: [address] [place] [address] Performed By: #### 1 9123-9, , 2776-08 ####[facility] LABCLIA [id number] [place] [address] [place] CO2 [Moles/Vol] 27 mmol/L Normal 22-30 [facility] Comment on above: Order Comment: Speci men Type: BLOOD SPECIMENOrdering Facility: [facility] Address: [address] [place] [address] Performed By: #### 1 9123-9, 39874-5, 2776-08 ####[facility] LABCLIA [id number] [place] [address] [place] Creatinine [Mass/Vol] 0.81 mg/dL Normal 0.58-0.96 [facility] Comment on above: Order Comment: Speci men Type: BLOOD SPECIMENOrdering Facility: [facility] Address: [address] [place] [address] Performed By: #### 1 9123-9, 41113-4, 2777-1 ####[facility] LABCLIA [id number] [place] [address] [place] Creatinine and Glomerular filtration rate.predicted panel (S/P/Bld) 73 mL/min/1.73m??? Normal >=60 [facility] Comment on above: Order Comment: Ramirez gamez Type: BLOOD SPECIMENOrdering Facility: [facility] Address: [address] [place] [address] Result Comment: Brandy mated Glomerular Filtration Rate [...] actual GFR. Performed By: #### 1 9123-9, 29701-6, 2777-1 ####[facility] LABCLIA [id number] [place] [address] [place] Glucose [Mass/Vol] 93 mg/dL Normal 74-99 [facility] Comment on above: Order Comment: Ramirez gamez Type: BLOOD SPECIMENOrdering Facility: [facility] Address: [address] [place] [address] Result Comment: The [place] Diabetes Association (ADA) provides guidance for cutoff [...] Standards of Medical Care in Diabetes 2016, [place] Diabetes Association. Diabetes Care. 2016.39(Suppl 1). Performed By: #### 1 9123-9, 67765-0, 2777- ####[facility] LABCLIA [id number] [address] [address] [place] Potassium [Moles/Vol] 3.8 mmol/L Normal 3.7-5.1 [facility] Comment on above: Order Comment: Speci men Type: BLOOD SPECIMENOrdering Facility: [facility] Address: [address] [place] [address] Performed By: #### 1 9123-9, 21522-7, 2776-08 ####[facility] LABCLIA [id number] [place] [address] [place] Protein [Mass/Vol] 5.7 g/dL Low 6.3-8.0 [facility] Comment on above: Order Comment: Speci men Type: BLOOD SPECIMENOrdering Facility: [facility] Address: [address] [place] [address] Performed By: #### 1 9123-9, 30358-4, 2776-08 ####[facility] LABCLIA [id number] [place] [address] [place] Sodium [Moles/Vol] 137 mmol/L Normal 136-144 [facility] Comment on above: Order Comment: Speci men Type: BLOOD SPECIMENOrdering Facility: [facility] Address: [address] [place] [address] Performed By: #### 1 9123-9, 15577-0, 2776- ####[facility] LABCLIA [id number] [address] [address] [place] Urea nitrogen [Mass/Vol] 12 mg/dL Normal 7-21 [facility] Comment on above: Order Comment: Speci men Type: BLOOD SPECIMENOrdering Facility: [facility] Address: [address] [place] [address] Performed By: #### 1 9123-9, 55282-4, 2777-1 ####[facility] LABCLIA [id number] [place] [address] [place] Magnesium SerPl-mCncon 09-23 Magnesium [Mass/Vol] 1.8 mg/dL Normal 1.7-2.3 [facility] Comment on above: Order Comment: Speci men Type: BLOOD SPECIMENOrdering Facility: [facility] Address: [address] [place] [address] Performed By: #### 1 9123-9, 13317-4, 2777-1 ####[facility] LABCLIA [id number] [place] [address] [place] Phosphate SerPl-mCncon 09-23 Phosphate [Mass/Vol] 1.7 mg/dL Low 2.7-4.8 [facility] Comment on above: Order Comment: Speci men Type: BLOOD SPECIMENOrdering Facility: [facility] Address: [address] [place] [address] Performed By: #### 1 9123-9, 73510-1, 2777-1 ####[facility] LABCLIA [id number] [place] [address] [place] THERAPY NTon 09-23-2024 THERAPY NT Normal [facility] ANES POSTPROC EVALon 025 ANES POSTPROC EVAL Normal [facility] ANES POSTPROC EVAL Normal [facility] CASE MANAGEMon 09-22-2024 CASE MANAGEM Normal [facility] CBC panel Auto (Bld)on 09-22 Erythrocyte distribution width (RBC) [Ratio] 13.7 % Normal 11.5-15.0 [facility] Comment on above: Order Comment: Speci men Type: BLOOD SPECIMENOrdering Facility: [facility] Address: [address] [place] [address] Performed By: #### 5 8410-2 ####[facility] LABCLIA [id number] [place] [address] [place] Hematocrit (Bld) [Volume fraction] 33.8 % Low 36.0-46.0 [facility] Comment on above: Order Comment: Speci men Type: BLOOD SPECIMENOrdering Facility: [facility] Address: [address] [place] [address] Performed By: #### 5 8410-2 ####[facility] LABIA [id number] [place] [address] [place] Hemoglobin (Bld) [Mass/Vol] 10.8 g/dL Low 11.5-15.5 [facility] Comment on above: Order Comment: Speci men Type: BLOOD SPECIMENOrdering Facility: [facility] Address: [address] [place] [address] Performed By: #### 5 8410-2 ####[facility] LABIA [id number] [place] [address] [place] MCH (RBC) [Entitic mass] 29.1 pg Normal 26.0-34.0 [facility] Comment on above: Order Comment: Speci men Type: BLOOD SPECIMENOrdering Facility: [facility] Address: [address] [place] [address] Performed By: #### 5 8410-2 ####[facility] LABIA [id number] [place] [address] [place] MCHC (RBC) [Mass/Vol] 32.0 g/dL Normal 30.5-36.0 [facility] Comment on above: Order Comment: Speci men Type: BLOOD SPECIMENOrdering Facility: [facility] Address: [address] [place] [address] Performed By: #### 5 8410-2 ####[facility] LABIA [id number] [place] [address] [place] MCV (RBC) [Entitic vol] 91.1 fL Normal 80.0-100.0 [facility] Comment on above: Order Comment: Speci men Type: BLOOD SPECIMENOrdering Facility: [facility] Address: [address] [place] [address] Performed By: #### 5 8410-2 ####[facility] LABIA [id number] [place] [address] [place] Nucleated RBC (Bld) [#/Vol] 10*3/uL Normal <0.01 [facility] Comment on above: Order Comment: Speci men Type: BLOOD SPECIMENOrdering Facility: [facility] Address: [address] [place] [address] Performed By: #### 5 8410-2 ####[facility] LABIA [id number] [place] [address] [place] Platelet mean volume (Bld) [Entitic vol] 10.6 fL Normal 9.0-12.7 [facility] Comment on above: Order Comment: Speci men Type: BLOOD SPECIMENOrdering Facility: [facility] Address: [address] [place] [address] Performed By: #### 5 8410-2 ####[facility] LABIA [id number] [place] [address] [place] Platelets (Bld) [#/Vol] 147 10*3/uL Low 150-400 [facility] Comment on above: Order Comment: Speci men Type: BLOOD SPECIMENOrdering Facility: [facility] Address: [address] [place] [address] Performed By: #### 5 8410-2 ####[facility] LABIA [id number] [place] [address] [place] RBC (Bld) [#/Vol] 3.71 10*6/uL Low 3.90-5.20 [facility] Comment on above: Order Comment: Speci men Type: BLOOD SPECIMENOrdering Facility: [facility] Address: [address] [place] [address] Performed By: #### 5 8410-2 ####[facility] LABCLIA [id number] [place] [address] [place] WBC (Bld) [#/Vol] 4.72 10*3/uL Normal 3.70-11.00 [facility] Comment on above: Order Comment: Speci men Type: BLOOD SPECIMENOrdering Facility: [facility] Address: [address] [place] [address] Performed By: #### 5 8410-2 ####[facility] LABIA [id number] [place] [address] [place] Comprehensive metabolic 2000 panelon 09-22-2024 Albumin [Mass/Vol] 3.2 g/dL Low 3.9-4.9 [facility] Comment on above: Order Comment: Speci men Type: BLOOD SPECIMENOrdering Facility: [facility] Address: [address] [place] [address] Performed By: #### 1 9123-9, 22894-4, 2777-1 ####[facility] LABIA [id number] [place] [address] [place] ALP [Catalytic activity/Vol] 74 U/L Normal 34-123 [facility] Comment on above: Order Comment: Speci men Type: BLOOD SPECIMENOrdering Facility: [facility] Address: [address] [place] [address] Performed By: #### 1 9123-9, 60387-9, 2777-1 ####[facility] LABIA [id number] [place] [address] [place] ALT [Catalytic activity/Vol] 30 U/L Normal 7-38 [facility] Comment on above: Order Comment: Speci men Type: BLOOD SPECIMENOrdering Facility: [facility] Address: [address] [place] [address] Performed By: #### 1 9123-9, 51945-6, 2777 ####[facility] LABCLIA [id number] [place] [address] [place] Anion gap [Moles/Vol] 9 mmol/L Normal 8-15 [facility] Comment on above: Order Comment: Speci men Type: BLOOD SPECIMENOrdering Facility: [facility] Address: [address] [place] [address] Performed By: #### 1 9123-9, 20080-3, 277- ####[facility] LABCLIA [id number] [place] [address] [place] AST [Catalytic activity/Vol] 45 U/L High 13-35 [facility] Comment on above: Order Comment: Speci men Type: BLOOD SPECIMENOrdering Facility: [facility] Address: [address] [place] [address] Performed By: #### 1 9123-9, 16135-4, 27702-15 ####[facility] LABCLIA [id number] [place] [address] [place] Bilirubin [Mass/Vol] 1.0 mg/dL Normal 0.2-1.3 [facility] Comment on above: Order Comment: Speci men Type: BLOOD SPECIMENOrdering Facility: [facility] Address: [address] [place] [address] Performed By: #### 1 9123-9, 37361-4, 27702-15 ####[facility] LABCLIA [id number] [place] [id number] [place] Calcium [Mass/Vol] 8.0 mg/dL Low 8.5-10.2 [facility] Comment on above: Order Comment: Speci men Type: BLOOD SPECIMENOrdering Facility: [facility] Address: [address] [place] [address] Performed By: #### 1 9123-9, 36303-8, 277- ####[facility] LABCLIA [id number] [place] [address] [place] Chloride [Moles/Vol] 102 mmol/L Normal 98-107 [facility] Comment on above: Order Comment: Speci men Type: BLOOD SPECIMENOrdering Facility: [facility] Address: [address] [place] [address] Performed By: #### 1 9123-9, 23807-3, 2777-1 ####[facility] LABIA [id number] [place] [address] [place] CO2 [Moles/Vol] 25 mmol/L Normal 22-30 [facility] Comment on above: Order Comment: Speci men Type: BLOOD SPECIMENOrdering Facility: [facility] Address: [address] [place] [address] Performed By: #### 1 9123-9, 78153-2, 2777-1 ####[facility] [id number] [place] [address] [place] Creatinine [Mass/Vol] 0.82 mg/dL Normal 0.58-0.96 [facility] Comment on above: Order Comment: Speci men Type: BLOOD SPECIMENOrdering Facility: [facility] Address: [address] [place] [address] Performed By: #### 1 9123-9, 04489-7, 2777-1 ####[facility] [id number] [place] [address] [place] Creatinine and Glomerular filtration rate.predicted panel (S/P/Bld) 72 mL/min/1.73m??? Normal >=60 [facility] Comment on above: Order Comment: Speci men Type: BLOOD SPECIMENOrdering Facility: [facility] Address: [address] [place] [address] Result Comment: Brandy mated Glomerular Filtration Rate [...] actual GFR. Performed By: #### 1 9123-9, , 2776-08 ####[facility] LABCLIA [id number] [address] [address] [place] Glucose [Mass/Vol] 75 mg/dL Normal 74-99 [facility] Comment on above: Order Comment: Ramirez gamez Type: BLOOD SPECIMENOrdering Facility: [facility] Address: [address] [place] [address] Result Comment: The [place] Diabetes Association (ADA) provides guidance for cutoff [...] Standards of Medical Care in Diabetes 2016, [place] Diabetes Association. Diabetes Care. 2016.39(Suppl 1). Performed By: #### 1 9123-9, , 2776-08 ####[facility] LABCLIA [id number] [address] [address] [place] Potassium [Moles/Vol] 4.0 mmol/L Normal 3.7-5.1 [facility] Comment on above: Order Comment: Ramirez gamez Type: BLOOD SPECIMENOrdering Facility: [facility] Address: [address] [place] [address] Performed By: #### 1 9123-9, , 2776-08 ####[facility] LABCLIA [id number] [address] [address] [place] Protein [Mass/Vol] 5.5 g/dL Low 6.3-8.0 [facility] Comment on above: Order Comment: Speci men Type: BLOOD SPECIMENOrdering Facility: [facility] Address: [address] [place] [address] Performed By: #### 1 9123-9, 66044-3, 2777-1 ####[facility] LABCLIA [id number] [place] [address] [place] Sodium [Moles/Vol] 136 mmol/L Normal 136-144 [facility] Comment on above: Order Comment: Speci men Type: BLOOD SPECIMENOrdering Facility: [facility] Address: [address] [place] [address] Performed By: #### 1 9123-9, 56510-0, 2777-1 ####[facility] LABCLIA [id number] [place] [address] [place] Urea nitrogen [Mass/Vol] 11 mg/dL Normal 7-21 [facility] Comment on above: Order Comment: Speci men Type: BLOOD SPECIMENOrdering Facility: [facility] Address: [address] [place] [address] Performed By: #### 1 9123-9, 99924-4, 2777- ####[facility] LABCLIA [id number] [place] [address] [place] Magnesium SerPl-mCncon 09-22 Magnesium [Mass/Vol] 2.1 mg/dL Normal 1.7-2.3 [facility] Comment on above: Order Comment: Speci men Type: BLOOD SPECIMENOrdering Facility: [facility] Address: [address] [place] [address] Performed By: #### 1 9123-9, 52872-1, 2777-1 ####[facility] LABCLIA [id number] [place] [id number] [place] PT EDon 09-22-2024 PT ED Normal [facility] Phosphate SerPl-mCncon 09-22 Phosphate [Mass/Vol] 1.7 mg/dL Low 2.7-4.8 [facility] Comment on above: Order Comment: Speci men Type: BLOOD SPECIMENOrdering Facility: [facility] Address: [address] [place], [place] [address] Performed By: #### 1 9123-9, 60324-4, 2777-1 ####[facility] LABCLIA [id number] [address] [address] [place] THERAPY NTon 09-22-2024 THERAPY NT Normal [facility] Basic metabolic 2000 panelon 09-21-2024 Anion gap [Moles/Vol] 12 mmol/L Normal 8-15 [facility] Comment on above: Order Comment: Speci men Type: BLOOD SPECIMENOrdering Facility: [facility] Address: [address] [place] [address] Performed By: #### 1 9123-9, 2777-1, 79501-5, 73612-3 ####[facility] LABCLIA [id number] [place] [id number] [place] Calcium [Mass/Vol] 8.0 mg/dL Low 8.5-10.2 [facility] Comment on above: Order Comment: Speci men Type: BLOOD SPECIMENOrdering Facility: [facility] Address: [address] [place] [address] Performed By: #### 1 9123-9, 2777-1, 50164-1, 82304-7 ####[facility] LABCLIA [id number] [address] [address] [place] Chloride [Moles/Vol] 102 mmol/L Normal 98-107 [facility] Comment on above: Order Comment: Speci men Type: BLOOD SPECIMENOrdering Facility: [facility] Address: [address] [place] [address] Performed By: #### 1 9123-9, 2777-1, 91308-3, 59143-7 ####[facility] LABCLIA [id number] [place] [address] [place] CO2 [Moles/Vol] 24 mmol/L Normal 22-30 [facility] Comment on above: Order Comment: Speci men Type: BLOOD SPECIMENOrdering Facility: [facility] Address: [address] [place] [address] Performed By: #### 1 9123-9, 2777-1, 55869-0, 87414-2 ####[facility] LABCLIA [id number] [place] [address] [place] Creatinine [Mass/Vol] 0.78 mg/dL Normal 0.58-0.96 [facility] Comment on above: Order Comment: Speci men Type: BLOOD SPECIMENOrdering Facility: [facility] Address: [address] [place] [address] Performed By: #### 1 9123-9, 2777-1, 70776-7, 87891-5 ####[facility] LABIA [id number] [place] [address] [place] Creatinine and Glomerular filtration rate.predicted panel (S/P/Bld) 76 mL/min/1.73m??? Normal >=60 [facility] Comment on above: Order Comment: Speci men Type: BLOOD SPECIMENOrdering Facility: [facility] Address: [address] [place] [address] Result Comment: Brandy mated Glomerular Filtration Rate [...] GFR. Performed By: #### 1 9123-9, 2777-1, 60625-4, 78042-3 ####[facility] LABCLIA [id number] [place] [address] [place] Glucose [Mass/Vol] 64 mg/dL Low 74-99 [facility] Comment on above: Order Comment: Speci men Type: BLOOD SPECIMENOrdering Facility: [facility] Address: [address] [place] [address] Result Comment: The [place] Diabetes Association (ADA) provides guidance for cutoff [...] Standards of Medical Care in Diabetes 2016, [place] Diabetes Association. Diabetes Care. 2016.39(Suppl 1). Performed By: #### 1 9123-9, 2777-1, 19582-4, 18508-1 ####[facility] LABCLIA [id number] [place] [address] [place] Potassium [Moles/Vol] 4.2 mmol/L Normal 3.7-5.1 [facility] Comment on above: Order Comment: Speci men Type: BLOOD SPECIMENOrdering Facility: [facility] Address: [address] [place] [address] Performed By: #### 1 9123-9, 2777-1, 30971-8, 79250-4 ####[facility] LABCLIA [id number] [place] [address] [place] Sodium [Moles/Vol] 138 mmol/L Normal 136-144 [facility] Comment on above: Order Comment: Speci men Type: BLOOD SPECIMENOrdering Facility: [facility] Address: [address] [place] [address] Performed By: #### 1 9123-9, 2777-1, 32981-9, 42114-7 ####[facility] LABCLIA [id number] [place] [id number] [place] Urea nitrogen [Mass/Vol] 15 mg/dL Normal 7-21 [facility] Comment on above: Order Comment: Speci men Type: BLOOD SPECIMENOrdering Facility: [facility] Address: [address] [place] [address] Performed By: #### 1 9123-9, 2777-1, 53005-2, 61482-2 ####[facility] LABCLIA [id number] [place] [address] [place] CASE MANAGEMon 09-21-2024 CASE MANAGEM Normal [facility] CASE MGT INIT ASSESon 2024 CASE MGT INIT ASSES Normal [facility] CBC W Auto Differential pane l (Bld)on 09-21-2024 Basophils (Bld) [#/Vol] 10*3/uL Normal <0.11 [facility] Comment on above: Order Comment: Speci men Type: BLOOD SPECIMENOrdering Facility: [facility] Address: [address] [place] [address] Performed By: #### 5 7021-8 ####[facility] LABCLIA [id number] [place] [address] [place] Basophils/100 WBC (Bld) 0.3 % Normal [facility] Comment on above: Order Comment: Speci men Type: BLOOD SPECIMENOrdering Facility: [facility] Address: [address] [place] [address] Performed By: #### 5 7021-8 ####[facility] LABIA [id number] [place] [address] [place] Differential cell count method Nom (Bld) Auto Normal [facility] Comment on above: Order Comment: Speci men Type: BLOOD SPECIMENOrdering Facility: [facility] Address: [address] [place] [address] Performed By: #### 5 7021-8 ####[facility] LABCLIA [id number] [place] [address] [place] Eosinophils (Bld) [#/Vol] 10*3/uL Normal <0.46 [facility] Comment on above: Order Comment: Speci men Type: BLOOD SPECIMENOrdering Facility: [facility] Address: [address] [place] [address] Performed By: #### 5 7021-8 ####[facility] LABCLIA [id number] [place] [address] [place] Eosinophils/100 WBC (Bld) 0.2 % Normal [facility] Comment on above: Order Comment: Speci men Type: BLOOD SPECIMENOrdering Facility: [facility] Address: [address] [place] [address] Performed By: #### 5 7021-8 ####[facility] LABCLIA [id number] [place] [address] [place] Erythrocyte distribution width (RBC) [Ratio] 13.7 % Normal 11.5-15.0 [facility] Comment on above: Order Comment: Speci men Type: BLOOD SPECIMENOrdering Facility: [facility] Address: [address] [place] [address] Performed By: #### 5 7021-8 ####[facility] LABCLIA [id number] [place] [address] [place] Hematocrit (Bld) [Volume fraction] 35.7 % Low 36.0-46.0 [facility] Comment on above: Order Comment: Speci men Type: BLOOD SPECIMENOrdering Facility: [facility] Address: [address] [place] [address] Performed By: #### 5 7021-8 ####[facility] LABCLIA [id number] [place] [address] [place] Hemoglobin (Bld) [Mass/Vol] 11.2 g/dL Low 11.5-15.5 [facility] Comment on above: Order Comment: Speci men Type: BLOOD SPECIMENOrdering Facility: [facility] Address: [address] [place] [address] Performed By: #### 5 7021-8 ####[facility] LABCLIA [id number] [place] [address] [place] Immature granulocytes (Bld) [#/Vol] 10*3/uL Normal <0.10 [facility] Comment on above: Order Comment: Speci men Type: BLOOD SPECIMENOrdering Facility: [facility] Address: [address] [place] [address] Performed By: #### 5 7021-8 ####[facility] LABCLIA [id number] [place] [address] [place] Immature granulocytes/100 WBC (Bld) 0.3 % Normal [facility] Comment on above: Order Comment: Speci men Type: BLOOD SPECIMENOrdering Facility: [facility] Address: [address] [place] [address] Performed By: #### 5 7021-8 ####[facility] LABCLIA [id number] [place] [address] [place] Lymphocytes (Bld) [#/Vol] 1.31 10*3/uL Normal 1.00-4.00 [facility] Comment on above: Order Comment: Speci men Type: BLOOD SPECIMENOrdering Facility: [facility] Address: [address] [place] [address] Performed By: #### 5 7021-8 ####[facility] LABCLIA [id number] [place] [address] [place] Lymphocytes/100 WBC (Bld) 20.1 % Normal [facility] Comment on above: Order Comment: Speci men Type: BLOOD SPECIMENOrdering Facility: [facility] Address: [address] [place] [address] Performed By: #### 5 7021-8 ####[facility] LABIA [id number] [place] [address] [place] MCH (RBC) [Entitic mass] 28.9 pg Normal 26.0-34.0 [facility] Comment on above: Order Comment: Speci men Type: BLOOD SPECIMENOrdering Facility: [facility] Address: [address] [place] [address] Performed By: #### 5 7021-8 ####[facility] [id number] [place] [address] [place] MCHC (RBC) [Mass/Vol] 31.4 g/dL Normal 30.5-36.0 [facility] Comment on above: Order Comment: Speci men Type: BLOOD SPECIMENOrdering Facility: [facility] Address: [address] [place] [address] Performed By: #### 5 7021-8 ####[facility] [id number] [place] [address] [place] MCV (RBC) [Entitic vol] 92.2 fL Normal 80.0-100.0 [facility] Comment on above: Order Comment: Speci men Type: BLOOD SPECIMENOrdering Facility: [facility] Address: [address] [place] [address] Performed By: #### 5 7021-8 ####[facility] [id number] [place] [address] [place] Monocytes (Bld) [#/Vol] 0.54 10*3/uL Normal <0.87 [facility] Comment on above: Order Comment: Speci men Type: BLOOD SPECIMENOrdering Facility: [facility] Address: [address] [place] [address] Performed By: #### 5 7021-8 ####[facility] [id number] [place] [address] [place] Monocytes/100 WBC (Bld) 8.3 % Normal [facility] Comment on above: Order Comment: Speci men Type: BLOOD SPECIMENOrdering Facility: [facility] Address: [address] [place] [address] Performed By: #### 5 7021-8 ####[facility] LABCLIA [id number] [place] [address] [place] Neutrophils (Bld) [#/Vol] 4.63 10*3/uL Normal 1.45-7.50 [facility] Comment on above: Order Comment: Speci men Type: BLOOD SPECIMENOrdering Facility: [facility] Address: [address] [place] [address] Performed By: #### 5 7021-8 ####[facility] LABCLIA [id number] [place] [address] [place] Neutrophils/100 WBC (Bld) 70.8 % Normal [facility] Comment on above: Order Comment: Speci men Type: BLOOD SPECIMENOrdering Facility: [facility] Address: [address] [place] [address] Performed By: #### 5 7021-8 ####[facility] LABCLIA [id number] [place] [address] [place] Nucleated RBC (Bld) [#/Vol] 10*3/uL Normal <0.01 [facility] Comment on above: Order Comment: Speci men Type: BLOOD SPECIMENOrdering Facility: [facility] Address: [address] [place] [address] Performed By: #### 5 7021-8 ####[facility] LABCLIA [id number] [place] [address] [place] Nucleated RBC/100 WBC (Bld) [Ratio] 0.0 /100 WBC Normal [facility] Comment on above: Order Comment: Speci men Type: BLOOD SPECIMENOrdering Facility: [facility] Address: [address] [place] [address] Performed By: #### 5 7021-8 ####[facility] LABCLIA [id number] [place] [id number] [place] Platelet mean volume (Bld) [Entitic vol] 10.7 fL Normal 9.0-12.7 [facility] Comment on above: Order Comment: Speci men Type: BLOOD SPECIMENOrdering Facility: [facility] Address: [address] [place] [address] Performed By: #### 5 7021-8 ####[facility] LABCLIA [id number] [place] [address] [place] Platelets (Bld) [#/Vol] 158 10*3/uL Normal 150-400 [facility] Comment on above: Order Comment: Speci men Type: BLOOD SPECIMENOrdering Facility: [facility] Address: [address] [place] [address] Performed By: #### 5 7021-8 ####[facility] LABCLIA [id number] [place] [address] [place] RBC (Bld) [#/Vol] 3.87 10*6/uL Low 3.90-5.20 [facility] Comment on above: Order Comment: Speci men Type: BLOOD SPECIMENOrdering Facility: [facility] Address: [address] [place] [address] Performed By: #### 5 7021-8 ####[facility] LABCLIA [id number] [place] [id number] [place] WBC (Bld) [#/Vol] 6.53 10*3/uL Normal 3.70-11.00 [facility] Comment on above: Order Comment: Speci men Type: BLOOD SPECIMENOrdering Facility: [facility] Address: [address] [place] [address] Performed By: #### 5 7021-8 ####[facility] LABCLIA [id number] [address] [address] [place] Hepatic function 2000 panelo n 09-21-2024 Albumin [Mass/Vol] 3.4 g/dL Low 3.9-4.9 [facility] Comment on above: Order Comment: Speci men Type: BLOOD SPECIMENOrdering Facility: [facility] Address: [address] [place] [address] Performed By: #### 1 9123-9, 2777-1, 00223-2, 27305-3 ####[facility] LABCLIA [id number] [place] [address] [place] ALP [Catalytic activity/Vol] 65 U/L Normal 34-123 [facility] Comment on above: Order Comment: Speci men Type: BLOOD SPECIMENOrdering Facility: [facility] Address: [address] [place] [address] Performed By: #### 1 9123-9, 2777-1, 58614-5, 18811-3 ####[facility] LABCLIA [id number] [place] [address] [place] ALT [Catalytic activity/Vol] 30 U/L Normal 7-38 [facility] Comment on above: Order Comment: Speci men Type: BLOOD SPECIMENOrdering Facility: [facility] Address: [address] [place] [address] Performed By: #### 1 9123-9, 2777-1, 34862-7, 24543-2 ####[facility] LABCLIA [id number] [place] [id number] [place] AST [Catalytic activity/Vol] 52 U/L High 13-35 [facility] Comment on above: Order Comment: Speci men Type: BLOOD SPECIMENOrdering Facility: [facility] Address: [address] [place] [address] Performed By: #### 1 9123-9, 2777-1, 53294-5, 54850-6 ####[facility] LABCLIA [id number] [address] [address] [place] Bilirubin [Mass/Vol] 0.9 mg/dL Normal 0.2-1.3 [facility] Comment on above: Order Comment: Speci men Type: BLOOD SPECIMENOrdering Facility: [facility] Address: [address] [place] [address] Performed By: #### 1 9123-9, 2777-1, 62898-6, 39365-7 ####[facility] LABIA [id number] [place] [id number] [place] Bilirubin.conjugate d [Mass/Vol] 0.3 mg/dL High <0.3 [facility] Comment on above: Order Comment: Speci men Type: BLOOD SPECIMENOrdering Facility: [facility] Address: [address] [place] [address] Performed By: #### 1 9123-9, 2777-1, 52982-6, 68098-0 ####[facility] LABIA [id number] [place] [id number] [place] Protein [Mass/Vol] 5.8 g/dL Low 6.3-8.0 [facility] Comment on above: Order Comment: Speci men Type: BLOOD SPECIMENOrdering Facility: [facility] Address: [address] [place] [address] Performed By: #### 1 9123-9, 2777-1, 27821-9, 48829-1 ####[facility] LABIA [id number] [address] [address] [place] Magnesium SerPl-mCncon 09-21 Magnesium [Mass/Vol] 1.7 mg/dL Normal 1.7-2.3 [facility] Comment on above: Order Comment: Speci men Type: BLOOD SPECIMENOrdering Facility: [facility] Address: [address] [place] [address] Performed By: #### 1 9123-9, 2777-1, 32012-9, 94314-9 ####[facility] LABCLIA [id number] [place] [address] [place] Phosphate SerPl-mCncon 09-21 Phosphate [Mass/Vol] 2.7 mg/dL Normal 2.7-4.8 [facility] Comment on above: Order Comment: Speci men Type: BLOOD SPECIMENOrdering Facility: [facility] Address: [address] [place] [address] Performed By: #### 1 9123-9, 2777-1, 79161-1, 83597-3 ####[facility] LABIA [id number] [address] [place] THERAPY NTon 09-21-2024 THERAPY NT Normal [facility] ANES PRE-OPon 09-20-2024 ANES PRE-OP Normal [facility] BRIEF OP NOTon 09-20-2024 BRIEF OP NOT Normal [facility] CBC panel Auto (Bld)on 09-20 Erythrocyte distribution width (RBC) [Ratio] 14.1 % Normal 11.5-15.0 [facility] Comment on above: Order Comment: Speci men Type: BLOOD SPECIMENOrdering Facility: [facility] Address: [address] [place] [address] Performed By: #### 5 8410-2 ####[facility] LABIA [id number] [place] [address] [place] Hematocrit (Bld) [Volume fraction] 35.4 % Low 36.0-46.0 [facility] Comment on above: Order Comment: Speci men Type: BLOOD SPECIMENOrdering Facility: [facility] Address: [address] [place] [address] Performed By: #### 5 8410-2 ####[facility] LABIA [id number] [place] [address] [place] Hemoglobin (Bld) [Mass/Vol] 11.1 g/dL Low 11.5-15.5 [facility] Comment on above: Order Comment: Speci men Type: BLOOD SPECIMENOrdering Facility: [facility] Address: [address] [place] [address] Performed By: #### 5 8410-2 ####[facility] LABIA [id number] [place] [address] [place] MCH (RBC) [Entitic mass] 28.5 pg Normal 26.0-34.0 [facility] Comment on above: Order Comment: Speci men Type: BLOOD SPECIMENOrdering Facility: [facility] Address: [address] [place] [address] Performed By: #### 5 8410-2 ####[facility] [id number] [place] [address] [place] MCHC (RBC) [Mass/Vol] 31.4 g/dL Normal 30.5-36.0 [facility] Comment on above: Order Comment: Speci men Type: BLOOD SPECIMENOrdering Facility: [facility] Address: [address] [place] [address] Performed By: #### 5 8410-2 ####[facility] [id number] [place] [address] [place] MCV (RBC) [Entitic vol] 90.8 fL Normal 80.0-100.0 [facility] Comment on above: Order Comment: Speci men Type: BLOOD SPECIMENOrdering Facility: [facility] Address: [address] [place] [address] Performed By: #### 5 8410-2 ####[facility] LABIA [id number] [place] [address] [place] Nucleated RBC (Bld) [#/Vol] 10*3/uL Normal <0.01 [facility] Comment on above: Order Comment: Speci men Type: BLOOD SPECIMENOrdering Facility: [facility] Address: [address] [place] [address] Performed By: #### 5 8410-2 ####[facility] LABIA [id number] [place] [address] [place] Platelet mean volume (Bld) [Entitic vol] 10.0 fL Normal 9.0-12.7 [facility] Comment on above: Order Comment: Speci men Type: BLOOD SPECIMENOrdering Facility: [facility] Address: [address] [place] [address] Performed By: #### 5 8410-2 ####[facility] LABIA [id number] [place] [address] [place] Platelets (Bld) [#/Vol] 137 10*3/uL Low 150-400 [facility] Comment on above: Order Comment: Speci men Type: BLOOD SPECIMENOrdering Facility: [facility] Address: [address] [place] [address] Result Comment: Resu lts checked and verified.No clot detected. Performed By: #### 5 8410-2 ####[facility] LABIA [id number] [place] [address] [place] RBC (Bld) [#/Vol] 3.90 10*6/uL Normal 3.90-5.20 [facility] Comment on above: Order Comment: Speci men Type: BLOOD SPECIMENOrdering Facility: [facility] Address: [address] [place] [address] Performed By: #### 5 8410-2 ####[facility] LABIA [id number] [place] [address] [place] WBC (Bld) [#/Vol] 7.72 10*3/uL Normal 3.70-11.00 [facility] Comment on above: Order Comment: Speci men Type: BLOOD SPECIMENOrdering Facility: [facility] Address: [address] [place] [address] Performed By: #### 5 8410-2 ####[facility] LABCLIA [id number] [place] [id number] [facility] [place] OPERATIVE NOon 09-20-2024 OPERATIVE NO Normal [facility] SURGICAL PATHOLOGYon 025 CASE REPORT Normal [facility] Comment on above: Order Comment: Speci men Type: TISSUE SPECIMENOrdering Facility: [facility] Address: [address] [place] [address] Result Comment: Surg ica Pathology Report Case: [id number] Provider: Anila De Paz MD Collected: 09/20/2024 11:38 AMOrdering Location: Admitting Received: 09/20/2024 02:49 PMPathologist: Susan Ku MDSpecimens: A) - Hernia Sac B) - Gallbladder Performed By: #### S ####[facility] LABCLIA [id number] [address] STATES OF [facility] CLINICAL HISTORY Normal [facility] Comment on above: Order Comment: Speci men Type: TISSUE SPECIMENOrdering Facility: [facility] Address: [address] [place] [address] Result Comment: Pre- op diagnosis:Hiatal hernia [K44.9]Epigastric pain [R10.13]Nausea and vomiting, unspecified vomiting type [R11.2]Pre-op exam [Z01.818] Performed By: #### S ####[facility] LABCLIA [id number] [address] FINAL DIAGNOSIS Normal [facility] Comment on above: Order Comment: Speci men Type: TISSUE SPECIMENOrdering Facility: [facility] Address: [address] [place] [address] Result Comment: A. H ernia sac, resection:- Benign fibroadipose tissue.B. Gallbladder, cholecystectomy:- Mild chronic cholecystitis. Performed By: #### S ####[facility] LABCLIA [id number] [place] [address] [place] FINAL PERFORMING LAB Normal [facility] Comment on above: Order Comment: Speci men Type: TISSUE SPECIMENOrdering Facility: [facility] Address: [address] [place] [address] Result Comment: Diag nostic interpretation performed at: [facility], [address] [place] [address] CLIA# [id number] Director: Rosales Quintana MD Performed By: #### S ####[facility] LABCLIA [id number] [place] [address] [place] GROSS DESCRIPTION A. Hernia Sac Normal [facility] Comment on above: Order Comment: Speci men Type: TISSUE SPECIMENOrdering Facility: [facility] Address: [address] [place] [address] Result Comment: Rece ived in formalin, labeled [...] The cystic duct margin (en face) and asset protection representative sections of the gallbladder wall are submitted in [email or web address].ANUSHA September 20, 2024 3:38 PMGross examination performed at [facility], [address] [place] [address] Performed By: #### S ####[facility] LABCLIA [id number] [place] [address] [place] Chest without Contraston Chest without Contrast [facility] [address] [place] [address] Chest without Contrast MR#: [id number] Acct: [id number] Name: LAUREN ALCARAZ Rep #: [id number] : 1940 F 84 From: Gunnar Carrero MD PCP: Dr. Chema Perry MD Status: REG ER Study: Chest without Contrast Date of Exam: 09/18/24 Exam# [id number] Ordering Dr: Susan Emery DO PROCEDURE: CHEST [...] Contrast IMPRESSION: Improved airspace aeration compared to 2022, with persistent streaky airspace opacities in the lingula and right lower lobe with associated peribronchial thickening. Chronic processes are favored, however, acute infectious disease can not be definitively excluded. One or more dose reduction techniques were used (e.g., Automated exposure control, adjustment of the mA and/or kV according to patient size, use of iterative reconstruction technique). Reading [facility] CC: Dr. Susan Emery DO; Dr. Chema Perry MD Hedis Analyst: Signed Normal [facility] Emergency Department Summary on 09-18-2024 Emergency Department Summary [facility] Medical Records Department [address] [place] [address] Emergency Department Summary 09/18/24 MR#: [id number] Acct: [id number] Name: LAUREN ALCARAZ Rep #: [id number] : 1940 84 From: Susan Emery DO [...] of breath. Pain is worse with movement. [facility]SH [facility] Medical History Open wound of right lower [...] artery ( 1989) Atherosclerotic heart disease of [place] coronary artery without angina pectoris Essential hypertension [...] denosumab 60 mg/mL subcutaneous 60 mg subcut A2EHUDOH #1 mL Unknown Rx syringe (Prolia) BD [...] Rx vortiox (more content not included)... Normal [facility] CBC W Auto Differential pane l (Bld)on 09-14-2024 Basophils (Bld) [#/Vol] 10*3/uL Normal <0.11 [facility] Comment on above: Order Comment: Speci men Type: BLOOD SPECIMENOrdering Facility: [facility] Address: [address] [place] [address] Performed By: #### 5 7021-8 ####[facility] [id number] [place] [address] [place] Basophils/100 WBC (Bld) 0.2 % Normal [facility] Comment on above: Order Comment: Speci men Type: BLOOD SPECIMENOrdering Facility: [facility] Address: [address] [place] [address] Performed By: #### 5 7021-8 ####[facility] [id number] [place] [address] [place] Differential cell count method Nom (Bld) Auto Normal [facility] Comment on above: Order Comment: Speci men Type: BLOOD SPECIMENOrdering Facility: [facility] Address: [address] [place] [address] Performed By: #### 5 7021-8 ####[facility] [id number] [place] [address] [place] Eosinophils (Bld) [#/Vol] 0.10 10*3/uL Normal <0.46 [facility] Comment on above: Order Comment: Speci men Type: BLOOD SPECIMENOrdering Facility: [facility] Address: [address] [place] [address] Performed By: #### 5 7021-8 ####[facility] SYSTEMLIA [id number] [place] [address] [place] Eosinophils/100 WBC (Bld) 1.8 % Normal [facility] Comment on above: Order Comment: Speci men Type: BLOOD SPECIMENOrdering Facility: [facility] Address: [address] [place] [address] Performed By: #### 5 7021-8 ####[facility]ENTERMORIAHStacy [id number] [place] [address] [place] Erythrocyte distribution width (RBC) [Ratio] 14.1 % Normal 11.5-15.0 [facility] Comment on above: Order Comment: Speci men Type: BLOOD SPECIMENOrdering Facility: [facility] Address: [address] [place] [address] Performed By: #### 5 7021-8 ####[facility] [id number] [place] [address] [place] Hematocrit (Bld) [Volume fraction] 34.6 % Low 36.0-46.0 [facility] Comment on above: Order Comment: Speci men Type: BLOOD SPECIMENOrdering Facility: [facility] Address: [address] [place] [address] Performed By: #### 5 7021-8 ####[facility]ENTERNCLIA [id number] [place] [address] [place] Hemoglobin (Bld) [Mass/Vol] 11.2 g/dL Low 11.5-15.5 [facility] Comment on above: Order Comment: Speci men Type: BLOOD SPECIMENOrdering Facility: [facility] Address: [address] [place] [address] Performed By: #### 5 7021-8 ####[facility] SYSTEMLIA [id number] [place] [address] [place] Immature granulocytes (Bld) [#/Vol] 10*3/uL Normal <0.10 [facility] Comment on above: Order Comment: Speci men Type: BLOOD SPECIMENOrdering Facility: [facility] Address: [address] [place] [address] Performed By: #### 5 7021-8 ####[facility] [id number] [place] [address] [place] Immature granulocytes/100 WBC (Bld) 0.2 % Normal [facility] Comment on above: Order Comment: Speci men Type: BLOOD SPECIMENOrdering Facility: [facility] Address: [address] [place] [address] Performed By: #### 5 7021-8 ####[facility] [id number] [place] [address] [place] Lymphocytes (Bld) [#/Vol] 1.92 10*3/uL Normal 1.00-4.00 [facility] Comment on above: Order Comment: Speci men Type: BLOOD SPECIMENOrdering Facility: [facility] Address: [address] [place] [address] Performed By: #### 5 7021-8 ####[facility] [id number] [place] [address] [place] Lymphocytes/100 WBC (Bld) 35.0 % Normal [facility] Comment on above: Order Comment: Speci men Type: BLOOD SPECIMENOrdering Facility: [facility] Address: [address] [place] [address] Performed By: #### 5 7021-8 ####[facility] MILLWNCLIA [id number] [place] [address] [place] [facility] MCH (RBC) [Entitic mass] 29.4 pg Normal 26.0-34.0 [facility] Comment on above: Order Comment: Speci men Type: BLOOD SPECIMENOrdering Facility: [facility] Address: [address] [place] [address] Performed By: #### 5 7021-8 ####[facility]ENTERNCLIA [id number] [place] [address] [place] MCHC (RBC) [Mass/Vol] 32.4 g/dL Normal 30.5-36.0 [facility] Comment on above: Order Comment: Speci men Type: BLOOD SPECIMENOrdering Facility: [facility] Address: [address] [place] [address] Performed By: #### 5 7021-8 ####[facility] SYSTEMLIA [id number] [place] [address] [place] MCV (RBC) [Entitic vol] 90.8 fL Normal 80.0-100.0 [facility] Comment on above: Order Comment: Speci men Type: BLOOD SPECIMENOrdering Facility: [facility] Address: [address] [place] [address] Performed By: #### 5 7021-8 ####[facility]ENTERNCLIA [id number] [place] [address] [place] Monocytes (Bld) [#/Vol] 0.43 10*3/uL Normal <0.87 [facility] Comment on above: Order Comment: Speci men Type: BLOOD SPECIMENOrdering Facility: [facility] Address: [address] [place] [address] Performed By: #### 5 7021-8 ####[facility] [id number] [place] [address] [place] Monocytes/100 WBC (Bld) 7.8 % Normal [facility] Comment on above: Order Comment: Speci men Type: BLOOD SPECIMENOrdering Facility: [facility] Address: [address] [place] [address] Performed By: #### 5 7021-8 ####[facility] [id number] [place] [address] [place] Neutrophils (Bld) [#/Vol] 3.01 10*3/uL Normal 1.45-7.50 [facility] Comment on above: Order Comment: Speci men Type: BLOOD SPECIMENOrdering Facility: [facility] Address: [address] [place] [address] Performed By: #### 5 7021-8 ####[facility] [id number] [place] [address] [place] Neutrophils/100 WBC (Bld) 55.0 % Normal [facility] Comment on above: Order Comment: Speci men Type: BLOOD SPECIMENOrdering Facility: [facility] Address: [address] [place] [address] Performed By: #### 5 7021-8 ####[facility] [id number] [place] [address] [place] Nucleated RBC (Bld) [#/Vol] 10*3/uL Normal <0.01 [facility] Comment on above: Order Comment: Speci men Type: BLOOD SPECIMENOrdering Facility: [facility] Address: [address] [place] [address] Performed By: #### 5 7021-8 ####[facility] SYSTEMLIA [id number] [place] [address] [place] Nucleated RBC/100 WBC (Bld) [Ratio] 0.0 /100 WBC Normal [facility] Comment on above: Order Comment: Speci men Type: BLOOD SPECIMENOrdering Facility: [facility] Address: [address] [place] [address] Performed By: #### 5 7021-8 ####[facility] RAFITA ISANCJESUS [id number] [place] [address] [place] Platelet mean volume (Bld) [Entitic vol] 10.1 fL Normal 9.0-12.7 [facility] Comment on above: Order Comment: Speci men Type: BLOOD SPECIMENOrdering Facility: [facility] Address: [address] [place] [address] Performed By: #### 5 7021-8 ####[facility] CENTERNCJESUS [id number] [place] [address] [place] Platelets (Bld) [#/Vol] 148 10*3/uL Low 150-400 [facility] Comment on above: Order Comment: Speci men Type: BLOOD SPECIMENOrdering Facility: [facility] Address: [address] [place] [address] Performed By: #### 5 7021-8 ####[facility]ENTERNCLIA [id number] [place] [address] [place] RBC (Bld) [#/Vol] 3.81 10*6/uL Low 3.90-5.20 [facility] Comment on above: Order Comment: Speci men Type: BLOOD SPECIMENOrdering Facility: [facility] Address: [address] [place] [address] Performed By: #### 5 7021-8 ####[facility]ENTERNCLIA [id number] [place] [address] [place] WBC (Bld) [#/Vol] 5.48 10*3/uL Normal 3.70-11.00 [facility] Comment on above: Order Comment: Speci men Type: BLOOD SPECIMENOrdering Facility: [facility] Address: [address] [place] [address] Performed By: #### 5 7021-8 ####[facility]OSPITALWNCLIA [id number] [place] [address] [place] CONFIRM BLOOD TYPEon 025 ABO A Normal [facility] Comment on above: Order Comment: Speci men Type: BLOOD SPECIMENOrdering Facility: [facility] Address: [address] [place] [address] Performed By: #### C ONABO ####[facility] BLOOD BANKCLIA [id number] [place] [address] [place] Rh Nom (Bld) Positive Normal [facility] Comment on above: Order Comment: Speci men Type: BLOOD SPECIMENOrdering Facility: [facility] Address: [address] [place] [address] Performed By: #### C ONABO ####[facility] BLOOD BANKCLIA [id number] [place] [address] [place] Comprehensive metabolic 2000 panelon 09-14-2024 Albumin [Mass/Vol] 3.9 g/dL Normal 3.9-4.9 [facility] Comment on above: Order Comment: Speci men Type: BLOOD SPECIMENOrdering Facility: [facility] Address: [address] [place] [address] Performed By: #### 2 4323-8 ####[facility] HOSPITALWNCLIA [id number] [place] [address] [place] ALP [Catalytic activity/Vol] 66 U/L Normal 34-123 [facility] Comment on above: Order Comment: Speci men Type: BLOOD SPECIMENOrdering Facility: [facility] Address: [address] [place] [address] Performed By: #### 2 4323-8 ####[facility] HOSPITALWNCLIA [id number] [place] [address] [place] ALT [Catalytic activity/Vol] 15 U/L Normal 7-38 [facility] Comment on above: Order Comment: Speci men Type: BLOOD SPECIMENOrdering Facility: [facility] Address: [address] [place] [address] Performed By: #### 2 4323-8 ####[facility] RAFITA MILLWNCLIA [id number] [place] [address] [place] Anion gap [Moles/Vol] 7 mmol/L Low 8-15 [facility] Comment on above: Order Comment: Speci men Type: BLOOD SPECIMENOrdering Facility: [facility] Address: [address] [place] [address] Performed By: #### 2 4323-8 ####[facility] SYSTEMLIA [id number] [place] [address] [place] AST [Catalytic activity/Vol] 20 U/L Normal 13-35 [facility] Comment on above: Order Comment: Speci men Type: BLOOD SPECIMENOrdering Facility: [facility] Address: [address] [place] [address] Performed By: #### 2 4323-8 ####[facility]ENTERNCLIA [id number] [place] [address] [place] Bilirubin [Mass/Vol] 0.3 mg/dL Normal 0.2-1.3 [facility] Comment on above: Order Comment: Speci men Type: BLOOD SPECIMENOrdering Facility: [facility] Address: [address] [place] [address] Performed By: #### 2 4323-8 ####[facility] SYSTEMLIA [id number] [place] [address] [place] Calcium [Mass/Vol] 9.3 mg/dL Normal 8.5-10.2 [facility] Comment on above: Order Comment: Speci men Type: BLOOD SPECIMENOrdering Facility: [facility] Address: [address] [place] [address] Performed By: #### 2 4323-8 ####[facility] CENTERNCLIA [id number] [place] [address] [place] Chloride [Moles/Vol] 106 mmol/L Normal 98-107 [facility] Comment on above: Order Comment: Speci men Type: BLOOD SPECIMENOrdering Facility: [facility] Address: [address] [place] [address] Performed By: #### 2 4323-8 ####[facility] [id number] [place] [address] [place] CO2 [Moles/Vol] 27 mmol/L Normal 22-30 [facility] Comment on above: Order Comment: Speci men Type: BLOOD SPECIMENOrdering Facility: [facility] Address: [address] [place] [address] Performed By: #### 2 4323-8 ####[facility] SYSTEMLIA [id number] [place] [address] [place] Creatinine [Mass/Vol] 0.99 mg/dL High 0.58-0.96 [facility] Comment on above: Order Comment: Speci men Type: BLOOD SPECIMENOrdering Facility: [facility] Address: [address] [place] [address] Performed By: #### 2 4323-8 ####[facility] SYSTEMLIA [id number] [place] [address] [place] Creatinine and Glomerular filtration rate.predicted panel (S/P/Bld) 57 mL/min/1.73m??? Low >=60 [facility] Comment on above: Order Comment: Speci men Type: BLOOD SPECIMENOrdering Facility: [facility] Address: [address] [place] [address] Result Comment: Brandy mated Glomerular Filtration Rate [...] actual GFR. Performed By: #### 2 4323-8 ####[facility] CENTERMORIAHLIStacy [id number] [place] [address] [place] Glucose [Mass/Vol] 92 mg/dL Normal 74-99 [facility] Comment on above: Order Comment: Ramirez gamez Type: BLOOD SPECIMENOrdering Facility: [facility] Address: [address] [place] [address] Result Comment: The [place] Diabetes Association (ADA) provides guidance for cutoff [...] Standards of Medical Care in Diabetes 2016, [place] Diabetes Association. Diabetes Care. 2016.39(Suppl 1). Performed By: #### 2 4323-8 ####[facility] [id number] [place] [address] [place] Potassium [Moles/Vol] 4.1 mmol/L Normal 3.7-5.1 [facility] Comment on above: Order Comment: Ramirez gamez Type: BLOOD SPECIMENOrdering Facility: [facility] Address: [address] [place] [id number] Performed By: #### 2 4323-8 ####[facility] CENTERNCLIStacy [id number] [place] [address] [place] Protein [Mass/Vol] 6.4 g/dL Normal 6.3-8.0 [facility] Comment on above: Order Comment: Speci men Type: BLOOD SPECIMENOrdering Facility: [facility] Address: [address] [place] [address] Performed By: #### 2 4323-8 ####[facility] HOSPITALWMDLIA [id number] [place] [address] [place] Sodium [Moles/Vol] 140 mmol/L Normal 136-144 [facility] Comment on above: Order Comment: Speci men Type: BLOOD SPECIMENOrdering Facility: [facility] Address: [address] [place] [address] Performed By: #### 2 4323-8 ####[facility] [id number] [place] [address] [place] Urea nitrogen [Mass/Vol] 34 mg/dL High 7- [facility] Comment on above: Order Comment: Speci men Type: BLOOD SPECIMENOrdering Facility: [facility] Address: [address] [place] [address] Performed By: #### 2 4323-8 ####[facility] [id number] [place] [address] [place] HISTORY PHYSICALon HISTORY PHYSICAL Normal [facility] LIPID PANEL, NONFASTINGon Cholesterol [Mass/Vol] 137 mg/dL Normal <200 [facility] Comment on above: Order Comment: Speci men Type: BLOOD SPECIMENOrdering Facility: [facility] Address: [address] [place] [address] Result Comment: <200 mg/dL, Desirable 200-239 mg/dL, Borderline high>239 mg/dL, High Performed By: #### L IPNF ####[facility] LABCLIA [id number] [facility] CENTERDESK [place]69[place] [address] [place] HDL CHOLESTEROL, NF 63 mg/dL Normal >39 [facility] Comment on above: Order Comment: Speci men Type: BLOOD SPECIMENOrdering Facility: [facility] Address: [address] [place] [address] Result Comment: 40-5 9 mg/dL, Acceptable>59 mg/dL, High: Negative risk factor for coronary heart disease<40 mg/dL, Low: Positive risk factor for coronary heart disease Performed By: #### L IPNF ####[facility] LABCLIA [id number] [address] LDL CHOLESTEROL, NF 61 mg/dL Normal <100 [facility] Comment on above: Order Comment: Corinei franco Type: BLOOD SPECIMENOrdering Facility: [facility] Address: [address] [place] [address] Result Comment: <100 mg/dL, Optimal 100-129 mg/dL, Near optimal/above optimal 130-159 mg/dL, Borderline high 160-189 mg/dL, High>189 mg/dL, Very highSecondary prevention optimal LDL Cholesterol levels are recommended to be < 70 mg/dL Performed By: #### L IPNF ####[facility] LABCLIA [id number] [address] LDL/HDL RATIO, NF 0.97 mg/dL Normal <2.54 [facility] Comment on above: Order Comment: Corinehakeem gamez Type: BLOOD SPECIMENOrdering Facility: [facility] Address: [address] [place] [address] Result Comment: Refe rence:1. National Cholesterol Education Program ATP III Guideline At-A-Glance Quick Desk Reference: National Heart, Lung, and Blood [employer]. National Institutes of Health. 2001: NIH Publication No. 01-3305.2. An International Atherosclerosis Society position paper: global recommendations for the management of dyslipidemia: executive summary, Atherosclerosis. 2014: 232(2):410-413. Performed By: #### L IPNF ####[facility] LABCLIA [id number] [address] [place] NON HDL CHOL, NF 74 mg/dL Normal <130 [facility] Comment on above: Order Comment: Speci men Type: BLOOD SPECIMENOrdering Facility: [facility] Address: [address] [place] [address] Result Comment: <130 mg/dL, Optimal 130-159 mg/dL, Near optimal/above optimal 160-189 mg/dL, Borderline high 190-219 mg/dL, High>219 mg/dL, Very highSecondary prevention optimal non HDL Cholesterol levels are recommended to be <100 mg/dL Performed By: #### L IPNF ####[facility] LABCLIA [id number] [place] [address] [place] T CHOL/HDL RATIO NF 2.17 mg/dL Normal <5.10 [facility] Comment on above: Order Comment: Speci men Type: BLOOD SPECIMENOrdering Facility: [facility] Address: [address] [place] [address] Performed By: #### L IPNF ####[facility] LABCLIA [id number] [place] [address] [place] TRIGLYCERIDES, NF 65 mg/dL Normal <150 [facility] Comment on above: Order Comment: Speci men Type: BLOOD SPECIMENOrdering Facility: [facility] Address: [address] [place] [address] Result Comment: <150 mg/dL, Normal 150-199 mg/dL, Borderline high 200-499 mg/dL, High>499 mg/dL, Very high Performed By: #### L IPNF ####[facility] LABCLIA [id number] [place] [address] [place] VLDL CHOLESTEROL, NF 13 mg/dL Normal <30 [facility] Comment on above: Order Comment: Speci men Type: BLOOD SPECIMENOrdering Facility: [facility] Address: [address] [place] [address] Performed By: #### L IPNF ####[facility] LABCLIA [id number] [place] [address] [place] TYPE AND SCREEN,30 DAYon ABO A Normal [facility] Comment on above: Order Comment: Speci men Type: BLOOD SPECIMENOrdering Facility: [facility] Address: [address] [place] [address] Performed By: #### T SCR30 ####CC MAIN BLOOD BANKCLIA [id number] [place] [address] [place] Rh Nom (Bld) Positive Normal [facility] Comment on above: Order Comment: Speci men Type: BLOOD SPECIMENOrdering Facility: [facility] Address: [address] [place] [address] Performed By: #### T SCR30 ####[facility] MAIN BLOOD BANKCLIA [id number] [place] [address] [place] ANES POSTPROC EVALon 025 ANES POSTPROC EVAL Normal [facility] ANES PRE-OPon 09-13-2024 ANES PRE-OP Normal [facility] EGD Study observation Narrat iveon 09-13-2024 [facility] Radiology Study observation (narrative) [facility] ERCPon 09-13-2024 ERCP Normal [facility] ERCP Study observation Narra tiveon 09-13-2024 [facility] Radiology Study observation (narrative) [facility] HISTORY PHYSICALon HISTORY PHYSICAL Normal [facility] NURSING PROGon 09-13-2024 NURSING PROG Normal [facility] NURSING PROG Normal [facility] NURSING PROG Normal [facility] [place] 09-13-2024 [place] Normal [facility] EMG(NEURO/NI)on 09-10-2024 Results can be seen in attached scanned documents. If you are a patient reviewing this test result, call the doctor who ordered the test with any questions. [facility] CNPNon 09-09-2024 CNPN Normal [facility] CNPNon 09-08-2024 CNPN Normal [facility] Biliary ducts and Pancrea tic duct WO and W contrast Chava 09-07-2024 * * *Final Report* * * DATE OF EXAM: Sep 07 2024 10:31AM AKBAR 0730 - MRI PANC/MAGNOLIA WO/W IVCON / [...] Lower chest: Unremarkable. DIVISION OF RADIOLOGY Provider, [facility]/07/[facility]24 * * *Final Report* * * DATE OF EXAM: Sep 07 2024 10:31AM AKBAR 0730 - MRI PANC/MAGNOLIA WO/W IVCON / [...] be communicated with the ordering provider via [employer] staff message or phone message by [employer] within 2 business days of report finalization. --END OF FINDING-- Hedis Analyst: ARTHUR Transcribe Date/Time: Sep 07 2024 10:32A Dictated by : VON COLES DO This examination was interpreted and the report reviewed and electronically signed by: PIA DAVEY MD on Sep 07 2024 3:23PM EST [facility] MR Unspecified body region 3 D post processingon 09-07-2024 * * *Final Report* * * DATE OF EXAM: Sep 07 2024 9:50AM [facility] 0280 - MRI 3D POST PROCESSING [...] Lower chest: Unremarkable. DIVISION OF RADIOLOGY Provider, [facility] - 09/07/2024 * * *Final Report* * * DATE OF EXAM: Sep 07 2024 9:50AM [facility] 0280 - MRI 3D POST PROCESSING [...] be communicated with the ordering provider via [employer] staff message or phone message by [facility] [employer] within 2 business days of report finalization. --END OF FINDING-- Hedis Analyst: ARTHUR Transcribe Date/Time: Sep 07 2024 10:32A Dictated by : VON COLES, DO This examination was interpreted and the report reviewed and electronically signed by: PIA DAVEY MD on Sep 07 2024 3:23PM EST [facility] MRI 3D POST PROCESSINGon MRI 3D POST PROCESSING Invalid Interpretation Code [facility] MRI PANC/MAGNOLIA WO/W IVCONon MRI PANC/MAGNOLIA WO/W IVCON Invalid Interpretation Code [facility] No Panel InformationOrdered By: Ccf Provider on 09-07-2024 Interpretation and review of laboratory results Abnormal [facility] Radiology Result ACTIONABLE Abnormal [facility] Comment on above: This report contains an [...] contact your provider for the next steps. [facility] No Panel Informationon 09-07 IMPRESSION: Persistent [...] be communicated with the ordering provider via [employer] staff message or phone message by [facility] [employer] within 2 business days of report finalization. --END OF FINDING-- Hedis Analyst: ARTHUR Transcribe Date/Time: Sep 07 2024 10:32A Dictated by : VON COLES, DO This examination was interpreted and the report reviewed and electronically signed by: PIA DAVEY MD on Sep 07 2024 3:23PM EST DIVISION OF RADIOLOGY Radiology Study observation (narrative) [facility] CNPNon 09-06-2024 CNPN Normal [facility] CNCNPATEDon 09-03-2024 CNCNPATED Normal [facility] CNOVon 09-03-2024 CNOV Normal [facility] HISTORY PHYSICALon HISTORY PHYSICAL Normal [facility] CNPNon 08-25-2024 CNPN Normal [facility] US CAROTID ARTERIES MAGNOLIA VAS LABon 08-25-2024 US CAROTID ARTERIES MAGNOLIA VAS LAB Normal [facility] CBC panel Auto (Bld)on 08-09 Erythrocyte distribution width (RBC) [Ratio] 13.9 % Normal 11.5-15.0 [facility] Comment on above: Order Comment: Speci men Type: BLOOD SPECIMENOrdering Facility: [facility] Address: [address] [place] [address] Performed By: #### 5 8410-2 ####[facility] LABCLIA [id number] [place] [address] [place] Hematocrit (Bld) [Volume fraction] 38.9 % Normal 36.0-46.0 [facility] Comment on above: Order Comment: Speci men Type: BLOOD SPECIMENOrdering Facility: [facility] Address: [address] [place] [address] Performed By: #### 5 8410-2 ####[facility] LABIA [id number] [place] [address] [place] Hemoglobin (Bld) [Mass/Vol] 12.3 g/dL Normal 11.5-15.5 [facility] Comment on above: Order Comment: Speci men Type: BLOOD SPECIMENOrdering Facility: [facility] Address: [address] [place] [address] Performed By: #### 5 8410-2 ####[facility] LABCLIA [id number] [place] [address] [place] MCH (RBC) [Entitic mass] 29.6 pg Normal 26.0-34.0 [facility] Comment on above: Order Comment: Speci men Type: BLOOD SPECIMENOrdering Facility: [facility] Address: [address] [place] [address] Performed By: #### 5 8410-2 ####[facility] LABIA [id number] [place] [address] [place] MCHC (RBC) [Mass/Vol] 31.6 g/dL Normal 30.5-36.0 [facility] Comment on above: Order Comment: Speci men Type: BLOOD SPECIMENOrdering Facility: [facility] Address: [address] [place] [address] Performed By: #### 5 8410-2 ####[facility] LABCLIA [id number] [place] [address] [place] MCV (RBC) [Entitic vol] 93.7 fL Normal 80.0-100.0 [facility] Comment on above: Order Comment: Speci men Type: BLOOD SPECIMENOrdering Facility: [facility] Address: [address] [place] [address] Performed By: #### 5 8410-2 ####[facility] LABCLIA [id number] [place] [address] [place] Nucleated RBC (Bld) [#/Vol] 10*3/uL Normal <0.01 [facility] Comment on above: Order Comment: Speci men Type: BLOOD SPECIMENOrdering Facility: [facility] Address: [address] [place] [address] Performed By: #### 5 8410-2 ####[facility] LABCLIA [id number] [place] [address] [place] Platelet mean volume (Bld) [Entitic vol] 10.4 fL Normal 9.0-12.7 [facility] Comment on above: Order Comment: Speci men Type: BLOOD SPECIMENOrdering Facility: [facility] Address: [address] [place] [address] Performed By: #### 5 8410-2 ####[facility] LABCLIA [id number] [place] [address] [place] Platelets (Bld) [#/Vol] 210 10*3/uL Normal 150-400 [facility] Comment on above: Order Comment: Speci men Type: BLOOD SPECIMENOrdering Facility: [facility] Address: [address] [place] [address] Performed By: #### 5 8410-2 ####[facility] LABIA [id number] [place] [address] [place] RBC (Bld) [#/Vol] 4.15 10*6/uL Normal 3.90-5.20 [facility] Comment on above: Order Comment: Speci men Type: BLOOD SPECIMENOrdering Facility: [facility] Address: [address] [place] [address] Performed By: #### 5 8410-2 ####[facility] LABIA [id number] [place] [address] [place] WBC (Bld) [#/Vol] 5.66 10*3/uL Normal 3.70-11.00 [facility] Comment on above: Order Comment: Speci men Type: BLOOD SPECIMENOrdering Facility: [facility] Address: [address] [place] [address] Performed By: #### 5 8410-2 ####[facility] LABIA [id number] [place] [address] [place] Comprehensive metabolic 2000 panelon 08-09-2024 Albumin [Mass/Vol] 3.7 g/dL Low 3.9-4.9 [facility] Comment on above: Order Comment: Speci men Type: BLOOD SPECIMENOrdering Facility: [facility] Address: [address] [place] [address] Performed By: #### 2 4323-8 ####[facility] LABIA [id number] [place] [address] [place] ALP [Catalytic activity/Vol] 70 U/L Normal 34-123 [facility] Comment on above: Order Comment: Speci men Type: BLOOD SPECIMENOrdering Facility: [facility] Address: [address] [place] [address] Performed By: #### 2 4323-8 ####[facility] LABCLIA [id number] [facility] [place] [id number] [place] ALT [Catalytic activity/Vol] 19 U/L Normal 7-38 [facility] Comment on above: Order Comment: Speci men Type: BLOOD SPECIMENOrdering Facility: [facility] Address: [address] [place] [address] Performed By: #### 2 4323-8 ####[facility] LABCLIA [id number] [place] [address] [place] Anion gap [Moles/Vol] 12 mmol/L Normal 8-15 [facility] Comment on above: Order Comment: Speci men Type: BLOOD SPECIMENOrdering Facility: [facility] Address: [address] [place] [address] Performed By: #### 2 4323-8 ####[facility] LABCLIA [id number] [place] [address] [place] AST [Catalytic activity/Vol] 29 U/L Normal 13-35 [facility] Comment on above: Order Comment: Speci men Type: BLOOD SPECIMENOrdering Facility: [facility] Address: [address] [place] [address] Performed By: #### 2 4323-8 ####[facility] LABCLIA [id number] [place] [address] [place] Bilirubin [Mass/Vol] 0.4 mg/dL Normal 0.2-1.3 [facility] Comment on above: Order Comment: Speci men Type: BLOOD SPECIMENOrdering Facility: [facility] Address: [address] [place] [address] Performed By: #### 2 4323-8 ####[facility] LABCLIA [id number] [place] [address] [place] Calcium [Mass/Vol] 9.0 mg/dL Normal 8.5-10.2 [facility] Comment on above: Order Comment: Speci men Type: BLOOD SPECIMENOrdering Facility: [facility] Address: [address] [place] [address] Performed By: #### 2 4323-8 ####[facility] LABCLIA [id number] [place] [address] [place] Chloride [Moles/Vol] 104 mmol/L Normal 98-107 [facility] Comment on above: Order Comment: Speci men Type: BLOOD SPECIMENOrdering Facility: [facility] Address: [address] [place] [address] Performed By: #### 2 4323-8 ####[facility] LABCLIA [id number] [place] [address] [place] CO2 [Moles/Vol] 23 mmol/L Normal 22-30 [facility] Comment on above: Order Comment: Speci men Type: BLOOD SPECIMENOrdering Facility: [facility] Address: [address] [place] [address] Performed By: #### 2 4323-8 ####[facility] LABCLIA [id number] [place] [address] [place] Creatinine [Mass/Vol] 0.85 mg/dL Normal 0.58-0.96 [facility] Comment on above: Order Comment: Speci men Type: BLOOD SPECIMENOrdering Facility: [facility] Address: [address] [place] [address] Performed By: #### 2 4323-8 ####[facility] LABCLIA [id number] [place] [address] [place] Creatinine and Glomerular filtration rate.predicted panel (S/P/Bld) 69 mL/min/1.73m??? Normal >=60 [facility] Comment on above: Order Comment: Speci men Type: BLOOD SPECIMENOrdering Facility: [facility] Address: [address] [place] [address] Result Comment: Brandy mated Glomerular Filtration Rate [...] actual GFR. Performed By: #### 2 4323-8 ####[facility] LABCLIA [id number] [place] [address] [place] Glucose [Mass/Vol] 121 mg/dL High 74-99 [facility] Comment on above: Order Comment: Ramirez gamez Type: BLOOD SPECIMENOrdering Facility: [facility] Address: [address] [place] [address] Result Comment: The [place] Diabetes Association (ADA) provides guidance for cutoff [...] Standards of Medical Care in Diabetes 2016, [place] Diabetes Association. Diabetes Care. 2016.39(Suppl 1). Performed By: #### 2 4323-8 ####[facility] LABIA [id number] [place] [address] [place] Potassium [Moles/Vol] 4.7 mmol/L Normal 3.7-5.1 [facility] Comment on above: Order Comment: Ramirez gamez Type: BLOOD SPECIMENOrdering Facility: [facility] Address: [address] [place] [address] Performed By: #### 2 4323-8 ####[facility] LABIA [id number] [address] [address] [place] Protein [Mass/Vol] 6.5 g/dL Normal 6.3-8.0 [facility] Comment on above: Order Comment: Speci men Type: BLOOD SPECIMENOrdering Facility: [facility] Address: [address] [place] [address] Performed By: #### 2 4323-8 ####[facility] LABCLIA [id number] [place] [address] [place] Sodium [Moles/Vol] 139 mmol/L Normal 136-144 [facility] Comment on above: Order Comment: Speci men Type: BLOOD SPECIMENOrdering Facility: [facility] Address: [address] [place] [address] Performed By: #### 2 4323-8 ####[facility] LABCLIA [id number] [place] [address] [place] Urea nitrogen [Mass/Vol] 20 mg/dL Normal 7-21 [facility] Comment on above: Order Comment: Speci men Type: BLOOD SPECIMENOrdering Facility: [facility] Address: [address] [place] [address] Performed By: #### 2 4323-8 ####[facility] LABCLIA [id number] [place] [address] [place] PROTEIN ELECTROPHORESIS SERU M (P)on 08-09-2024 Albumin [Mass/Vol] 3.66 g/dL Normal 3.43-5.41 [facility] Comment on above: Order Comment: Speci men Type: BLOOD SPECIMENOrdering Facility: [facility] Address: [address] [place] [address] Performed By: #### L [id number] ####[facility] LABCLIA [id number] [place] [address] [place] Alpha 1 globulin Elph [Mass/Vol] 0.25 g/dL Normal 0.18-0.43 [facility] Comment on above: Order Comment: Speci men Type: BLOOD SPECIMENOrdering Facility: [facility] Address: [address] [place] [address] Performed By: #### L [id number] ####[facility] LABCLIA [id number] [place] [address] [place] Alpha 2 globulin Elph [Mass/Vol] 0.67 g/dL Normal 0.42-0.98 [facility] Comment on above: Order Comment: Speci men Type: BLOOD SPECIMENOrdering Facility: [facility] Address: [address] [place] [address] Performed By: #### L [id number] ####[facility] LABCLIA [id number] [place] [address] [place] Beta globulin Elph [Mass/Vol] 0.73 g/dL Normal 0.61-1.17 [facility] Comment on above: Order Comment: Speci men Type: BLOOD SPECIMENOrdering Facility: [facility] Address: [address] [place] [address] Performed By: #### L [id number] ####[facility] LABCLIA [id number] [place] [address] [place] Gamma globulin Elph [Mass/Vol] 0.89 g/dL Normal 0.53-1.51 [facility] Comment on above: Order Comment: Speci men Type: BLOOD SPECIMENOrdering Facility: [facility] Address: [address] [place] [address] Performed By: #### L [id number] ####[facility] LABCLIA [id number] [place] [address] [place] M-PROTEIN LOCATION Normal [facility] Comment on above: Order Comment: Speci men Type: BLOOD SPECIMENOrdering Facility: [facility] Address: [address] [place] [address] Result Comment: Not Applicable. Performed By: #### L [id number] ####[facility] LABCLIA [id number] [address] STATES OF [facility] Protein Fractions [Interp] No definitive M protein is identified on protein electrophoresis. Normal No definitive M protein is identified on protein electrophor esis. [facility] Comment on above: Order Comment: Speci men Type: BLOOD SPECIMENOrdering Facility: [facility] Address: [address] [place] [address] Performed By: #### L [id number] ####[facility] LABCLIA [id number] [place] [address] [place] Protein.monoclonal Elph [Mass/Vol] 0.00 g/dL Normal <=0.00 [facility] Comment on above: Order Comment: Speci men Type: BLOOD SPECIMENOrdering Facility: [facility] Address: [address] [place] [address] Performed By: #### L [id number] ####[facility] LABIA [id number] [place] [address] [place] SPE STAFF REVIEW Reviewed by Dr. Gelnys Pierre MD [facility] Comment on above: Order Comment: Speci men Type: BLOOD SPECIMENOrdering Facility: [facility] Address: [address] [place] [address] Performed By: #### L [id number] ####[facility] LABIA [id number] [place] [address] [place] Prot SerPl-mCncon 08-09-2024 Protein [Mass/Vol] 6.2 g/dL Low 6.3-8.0 [facility] Comment on above: Order Comment: Speci men Type: BLOOD SPECIMENOrdering Facility: [facility] Address: [address] [place] [address] Performed By: #### 2 885-2, 2132-9 ####[facility] LABCLIA [id number] [place] [address] [place] VITAMIN B1 (THIAMINE), WHOLE BLOODon 08-09-2024 Thiamine (Bld) [Moles/Vol] 220.5 nmol/L High 84.3-213.3 [facility] Comment on above: Order Comment: Speci men Type: BLOOD SPECIMENOrdering Facility: [facility] Address: [address] [place] [address] Performed By: #### B 1WB ####[facility] LABCLIA [id number] [place] [address] [place] VITAMIN B6/PYRIDOXINon 08-09 VITAMIN B6 47.3 nmol/L Normal 20.0-125.0 [facility] Comment on above: Order Comment: Speci men Type: BLOOD SPECIMENOrdering Facility: [facility] Address: [address] [place] [address] Result Comment: INTE RPRETIVE INFORMATION: Vitamin B6 (Pyridoxal 5-Phosphate)Pyridoxal 5'-phosphate measured in a specimen collected followingan 8-hour or overnight fast accurately indicates vitamin F0fiiovlytndb status. Non-fasting specimen concentration reflectsrecent vitamin intake.This test was developed and its performance characteristicsdetermined by [facility]. It has not been cleared orapproved by the [place] Food and Drug Administration. This test wasperformed in a CLIA certified laboratory and is intended forclinical purposes.Performed By: [facility] [place] [address] [id number] Director: Estelle Bravo MD, PhDCLIA Number: [id number] Performed By: #### V ITB6 ####[facility] [id number] [place] [address] Vit B12 SerPl-mCncon 024 Cobalamin (Vitamin B12) [Mass/Vol] 1662 pg/mL High 232-1245 [facility] Comment on above: Order Comment: Speci men Type: BLOOD SPECIMENOrdering Facility: [facility] Address: [address] [place] [address] Performed By: #### 2 885-2, 2132-9 ####[facility] LABCLIA [id number] [place] [address] [place] CNOVon 08-06-2024 CNOV Normal [facility] CNOVon 08-03-2024 CNOV Normal [facility] ECG COMPLETEon 08-03-2024 Atrial Rate 75 BPM [facility] Calculated P Dante 42 degrees [facility] Calculated R Dante -38 degrees [facility] Calculated T Dante 49 degrees [facility] P-R Interval 188 ms [facility] QRS Duration 78 ms [facility] QT Interval 402 ms [facility] QTC Calculation (Bazett) 448 ms [facility] Ventricular Rate 75 BPM [facility] NAME : HUYEN ALCARAZ PID : [id number] : 1940 Gender : Female Race : ORD : [id number] Procedure Date : Aug 03 2024 15:41:45 Edit Date : Aug 03 2024 16:15:10 Diagnosis: NORMAL SINUS RHYTHM LEFT AXIS DEVIATION POOR R WAVE PROGRESSION INFERIOR MYOCARDIAL INFARCTION , AGE UNDETERMINED ABNORMAL ECG Confirmed by MD MARCIAL QARAB ([id number]), technical editor TONYA IVEY ([id number]) on 08/03/2024 4:15:08 PM Test Reason : I25.2 H/O acute myocardial infarction Location : 137 : STCARD Overread By : MD MARCIAL QARAB Edited By : TONYA IVEY Referred By : ANILA DE PAZ Acquired by : , [facility] ECG COMPLETE Normal [facility] ANES POSTPROC EVALon 024 ANES POSTPROC EVAL Normal [facility] ANES PRE-OPon 07-21-2024 ANES PRE-OP Normal [facility] EGD Study observation Narrat iveon 07-21-2024 [facility] Radiology Study observation (narrative) [facility] NURSING PROGon 07-21-2024 NURSING PROG Normal [facility] NURSING PROG Normal [facility] Upper GI endoscopyon 024 Upper GI endoscopy Normal [facility] CNPNon 07-19-2024 CNPN Normal [facility] Knee 4 or More Viewson 07-19 Knee 4 or More Views [facility] [address] [place] [address] Knee 4 or More Views MR#: [id number] Acct: [id number] Name: LAUREN ALCARAZ Rep #: [id number] : 1940 F 83 From: Ezio [place] MD PCP: Status: DEP AMB Study: Knee 4 or More Views Date of Exam: 07/19/24 Exam# [id number] Ordering Dr: Christopher Turk DO [id number] STUDY: X-RAY - LEFT KNEE REASON FOR [...] EST , CC: Dr. Christopher Turk DO Hedis Analyst: Signed Normal [place] [facility] Orthopedic Visit Reporton Orthopedic Visit Report [facility] [address] [place] [address] OFFICE VISIT Date of Service: 07/19/24 MR#: [id number] Acct: [id number] Name: LAUREN ALCARAZ Rep #: [id number] : 1940 Provider: Dr. Christopher chan DO Age/Sex: 83/F Location: [facility] Status: Signed Intake Vital Signs 06/07/24 08:51 [...] denosumab 60 mg/mL subcutaneous 60 mg subcut [id number] #1 mL 02/18/24 07/19/24 Rx syringe (Prolia) [...] you fallen in the past year?: No [facility] Medical History Open wound of right lower [...] artery ( 1989) Atherosclerotic heart disease of [place] coronary artery without angina pectoris Essential hypertension Influenza A Health care maintenance Fa (more content not included)... Normal [place] [facility] HISTORY PHYSICALon HISTORY PHYSICAL Normal [facility] CNPNon 07-14-2024 CNPN Normal [facility] Orthopedic Visit Reporton Orthopedic Visit Report [facility] [address] [place] [address] OFFICE VISIT Date of Service: 07/12/24 MR#: [id number] Acct: [id number] Name: LAUREN ALCARAZ Rep #: [id number] : 1940 Provider: Dr. Christopher chan DO Age/Sex: 83/F Location: [facility] Status: Signed Intake Vital Signs 06/07/24 08:51 [...] denosumab 60 mg/mL subcutaneous 60 mg subcut [id number] #1 mL 02/18/24 07/12/24 Rx syringe (Prolia) [...] you fallen in the past year?: Yes [facility] Medical History Open wound of right lower [...] artery ( 1989) Atherosclerotic heart disease of [place] coronary artery without angina pectoris Essential hypertension Influenza A Health care maintenance Falls frequently Cancer Depression Dementia Walker as ambulation aid Arthritis Bladder disease Low iron DVT (deep venous thrombosis) High cholesterol Restless legs Back pain TIA (transient ischemic attack) Seizures Difficulty swallowing Gastric reflux Non-smoker Asthma Shortness of breath on exertion Hx of echocardiogram Hist (more content not included)... Normal [facility] CNPNon 07-07-2024 CNPN Normal [facility] MR/BMS.IMBon 07-07-2024 MR/BMS.IMB [facility] [address] [place] [address] OFFICE VISIT Date of Service: 07/07/24 MR#: [id number] Acct: [id number] Name: LAUREN ALCARAZ Rep #: [id number] : 1940 Provider: Dr. 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 Normal [facility] Orthopedic Visit Reporton Orthopedic Visit Report [facility] [address] [place] [address] [address] [place] [address] OFFICE VISIT Date of Service: 07/05/24 MR#: [id number] Acct: [id number] Name: LAUREN ALCARAZ Rep #: [id number] : 1940 Provider: Dr. Christopher chan DO Age/Sex: 83/F Location: [facility] Status: Signed Intake Vital Signs 06/07/24 08:51 [...] denosumab 60 mg/mL subcutaneous 60 mg subcut [id number] #1 mL 02/18/24 07/05/24 Rx syringe (Prolia) [...] you fallen in the past year?: Yes [facility] Medical History Open wound of right lower [...] artery ( 1989) Atherosclerotic heart disease of [place] coronary artery without angina pectoris Essential hypertension Influenza A Health care maintenance Falls frequently Cancer Depression Dementia Walker as ambulation aid Arthritis Bladder disease Low iron DVT (deep venous thrombosis) High cholesterol Restless legs Back pain TIA (transient ischemic attack) Seizures Difficulty swallowing Gastric reflux Non-smoker Asthma Shortness of breath on exertion (more content not included)... Normal [facility] CNOVon 07-01-2024 CNOV Normal [facility] CT ABD/PEL W IVCONon 024 CT ABD/PEL W IVCON Normal [facility] CT Abdomen and Pelvis W cont rast Chava 06-24-2024 IMPRESSION: Large hiatal hernia. Dilated pancreatic duct and marked dilation of the common bile duct to the level of the ampulla. Possible filling defect within the distal CBD. Consider MRCP to exclude ampullary mass/choledocholithiasis. Hedis Analyst: ARTHUR Transcribe Date/Time: Jun 24 2024 4:00P Dictated by : STEPHANIE VIZCAINO MD This examination was interpreted and the report reviewed and electronically signed by: SETPHANIE VIZCAINO MD on Jun 24 2024 4:14PM [facility] DIVISION OF RADIOLOGY * * *Final Report* * * DATE OF EXAM: Jun 24 2024 3:12PM [facility] 0530 - CT ABD/PEL W IVCON [...] No additional findings. DIVISION OF RADIOLOGY Provider, [facility] - 06/24/2024 * * *Final Report* * * DATE OF EXAM: Jun 24 2024 3:12PM [facility] 0530 - CT ABD/PEL W IVCON [...] CBD. Consider MRCP to exclude ampullary mass/choledocholithiasis. Hedis Analyst: ARTHUR Transcribe Date/Time: Jun 24 2024 4:00P Dictated by : STEPHANIE VIZCAINO MD This examination was interpreted and the report reviewed and electronically signed by: STEPHANIE VIZCAINO MD on Jun 24 2024 4:14PM EST [facility] Radiology Study observation (narrative) [facility] CT Abdomen and Pelvis W cont rast IVOrdered By: Ccf Provider on 06-24-[address] [facility] [address] CHEST W IVCONon CT CHEST W IVCON Normal [facility] Inital Evaluation (1) - PTon 06-24-2024 Inital Evaluation (1) - PT [facility] Physical [facility] [address] [place] [address]. [address] [place] [address] / REHABILITATION SERVICES INITIAL EVALUATION MR#: [id number] Acct: [id number] Name: LAUREN ALCARAZ Rep #: [id number] : 1940 83 From: Gunnar Graves PT, ATC Referring Dr.: Dr. Christopher Turk, DO Status: R EG RCR Insurance: MEDICARE PART A B [place] [id number] Patient's Visit Information Visit Information Visit Information: [...] Pt reports she has been exercising with [employer] and [employer] for half hour sessions. Pt reports she has numbness in both of her feet which she attributes to neuropathy. Pt reports she has no stairs at home, but has used the stairs here at [facility]. Pt reports she can negotiate stairs [...] to be FAXED BACK to us at [phone] for Medicare purposes. For Medicare only, by signing this I certify the plan of care. Please let me know if there are questions or concerns regarding this plan of care. Physician Signature: Date: 06/24/24 1124 CC: Dr. Christopher Turk DO; Dr. Chema Perry MD [facility] Signed Normal [facility] CREATININE BLDon 06-23-2024 Creatinine [Mass/Vol] 0.84 mg/dL Normal 0.58-0.96 [facility] Comment on above: Order Comment: Speci men Type: BLOOD SPECIMENOrdering Facility: [facility] Address: [address] [place] [address] Performed By: #### C RET1 ####[facility] [id number] [place] [address] [place] Creatinine and Glomerular filtration rate.predicted panel (S/P/Bld) 70 mL/min/1.73m??? Normal >=60 [facility] Comment on above: Order Comment: Speci men Type: BLOOD SPECIMENOrdering Facility: [facility] Address: [address] [place], [place] [id number] Result Comment: Brandy mated Glomerular Filtration Rate [...] actual GFR. Performed By: #### C RET1 ####[facility] [id number] [place] [address] [place] CNCNPATEDon 06-18-2024 CNCNPATED Normal [facility] CNOVon 06-18-2024 CNOV Normal [facility] HISTORY PHYSICALon HISTORY PHYSICAL Normal [facility] CNPNon 06-17-2024 CNPN Normal [facility] Knee 4 or More Viewson 06-16 Knee 4 or More Views [facility] [address] [place] [address] Knee 4 or More Views MR#: [id number] Acct: [id number] Name: LAUREN ALCARAZ Rep #: [id number] : 1940 F 83 From: Bright Sarmiento MD PCP: Dr. Chema Perry MD Status: DEP AMB Study: Knee 4 or More Views Date of Exam: 06/16/24 Exam# [id number] Ordering Dr: Christopher Turk DO [id number] STUDY: X-RAY - RIGHT KNEE REASON FOR [...] 15:34 EDT Reading Location ID and State: [address] [place] [address] , Service support , CC: Dr. Christopher Turk DO; Dr. Chema Perry MD Hedis Analyst: Signed Normal [facility] Orthopedic Visit Reporton Orthopedic Visit Report [facility] [address] [place] [address] [address] [place] [address] OFFICE VISIT Date of Service: 06/16/24 MR#: [id number] Acct: [id number] Name: LAUREN ALCARAZ Rep #: [id number] : 1940 Provider: Dr. Christopher chan DO Age/Sex: 83/F Location: [facility] Status: Signed with Addenda ADDENDUM by Dr. [...] primary osteoarthritis, right knee 07/12/24 1029 Date Christopehr Turk DO cc: * Signed Intake Vital [...] denosumab 60 mg/mL subcutaneous 60 mg subcut [id number] #1 mL 02/18/24 06/16/24 Rx syringe (Prolia) [...] you fallen in the past year?: Yes [facility] Medical History Open wound of right lower extremity Contusion of right foot Kyphoscoliosis deformity of spine Bee sting Lumbar contusion Contusion of thoracic wall Pain of left lower extremity Contact with and (suspected) exposure to other viral communicable diseases Contusion of left wrist Left (more content not included)... Normal [facility] Brain/Head without Contrasto n 06-07-2024 Brain/Head without Contrast [facility] [address] [place] [address] Brain/Head without Contrast MR#: [id number] Acct: [id number] Name: LAUREN ALCARAZ Rep #: [id number] : 1940 F 83 From: Chad Harper MD PCP: Dr. Chema Perry MD Status: REG ER Study: Brain/Head without Contrast Date of Exam: 05/19 09/10 Exam# [id number] Ordering Dr: Susan Emery DO [id number] STUDY: CT BRAIN WITHOUT CONTRAST REASON FOR [...] Susan Emery DO; Dr. Chema Perry MD Hedis Analyst: Signed Normal [facility] Emergency Department Summary on 06-07-[address] [facility] Medical Records Department [address] [place] [address] Emergency Department Summary 06/07/24 MR#: [id number] Acct: [id number] Name: LAUREN ALCARAZ Rep #: [id number] : 1940 83 From: Susan Emery DO PCP: Dr. Chema [...] is on apixaban. She denies neck pain. [facility] Medical History Open wound of right lower [...] artery ( 1989) Atherosclerotic heart disease of [place] coronary artery without angina pectoris Essential hypertension [...] denosumab 60 mg/mL subcutaneous 60 mg subcut [id number] #1 mL 02/18/24 Unknown Rx syringe (Prolia) [...] Rx vor (more content not included)... Normal [facility] Shoulder min 2 Viewson 06-07 Shoulder min 2 Views [facility] [address] [place] [address] Shoulder min 2 Views MR#: [id number] Acct: [id number] Name: LAUREN ALCARAZ Rep #: [id number] : 1940 F 83 From: Chad Harper MD PCP: Dr. Chema Perry MD Status: REG ER Study: Shoulder min 2 Views Date of Exam: 06/07/24 Exam# [id number] Ordering Dr: Susan Emery DO [id number] STUDY: X-RAY - LEFT SHOULDER REASON FOR [...] 9:45 EDT Reading Location ID and State: [facility] / MD , Service support , CC: Dr. Susan Emery DO; Dr. 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 Normal [facility] CNOVon 05-17-2024 CNOV Normal [facility] Urgent Care Visit Reporton 0 05-04-2024 Urgent Care Visit Report [facility] [address], [address] [place] [address] OFFICE VISIT Date of Service: 05/04/24 MR#: [id number] Acct: [id number] Name: LAUREN ALCARAZ Rep #: [id number] : 1940 Provider: ERIK Dodson Age/Sex: 83/F Location: [facility] Status: Signed Intake Vital Signs 04/22/24 13:06 [...] Complaint: SEEPING WOUND ON RT LOWER EXTREMITY Automatic Serging Machine Operator Required: No Accompanied by: Is patient in [...] denosumab 60 mg/mL subcutaneous 60 mg subcut [id number] #1 mL 02/18/24 04/22/24 Rx syringe (Prolia) [...] you fallen in the past year?: No [facility] Medical History (Updated 05/04/24 @ 16:27 by Jd Gallego PA, PA) Open wound of right lower extremity Contusion of right foot Kyphoscoliosis deformity of spine Bee sting Lumbar contusion Contusion of thoracic wall Pain of left lower extremity Contact with and (suspected) exposure to ot (more content not included)... Normal [facility] OCT OPTIC NERVE CIRRUS OU (B OTH EYES)on 05-03-2024 [facility] Radiology Study observation (narrative) [facility] PT D/C Summary (1)on 024 PT D/C Summary (1) [facility] Physical [facility] [address] [place] [address] [address] [place] [address] / REHABILITATION SERVICES DISCHARGE SUMMARY MR#: [id number] Acct: [id number] Name: LAUREN ALCARAZ Rep #: [id number] : 1940 83 From: Vincent Amado DPT, OCS, CSCS Referring Dr.: Dr. Chema Perry MD Status: R EG RCR Insurance: MEDICARE PART A B [place] [id number] Discharge Summary D/C summary: It has been [...] Goal 3:: Pt have confidence in her HEP/certified personal trainer ex regimen to continue to make [...] please feel free to call me at [phone]. Thank you for the referral of this patient. Sincerely, Vincent Amado, DPT, OCS, CSCS Balance/Gait/Functional tests Balance/Special Test Scores Functional Gait Assessment Score: 22 % Disability: 26.6700 CATSIB Score (Max score 120 seconds): 85 Dizziness Score: 26 30 Second Chair Rise Test Seconds: 9 Improvement % Improvement: 50 04/30/24 0819 CC: Dr. Chema Perry MD EBG Signed Normal [facility] MR/Yanni 04-22-2024 MR/BMS.MOHAMUD [facility] [address] [place] [address] OFFICE VISIT Date of Service: 04/22/24 MR#: [id number] Acct: [id number] Name: LAUREN ALCARAZ Rep #: [id number] : 1940 Provider: Dr. Chema williamson MD Age/Sex: 83/F Location: [facility] Status: Signed Intake Vital Signs 04/17/24 06:55 [...] Delivery Method room air Intake Visit Reasons: [facility] ER FU Chief Complaint: N/V Automatic Serging Machine Operator Required: No Is patient in pain?: Yes [...] denosumab 60 mg/mL subcutaneous 60 mg subcut G7OYINES #1 mL 02/18/24 04/22/24 Rx syringe (Prolia) [...] you fallen in the past year?: No [facility] Contusion of right foot Kyphoscoliosis deformity of spine Bee sting Lumbar contusion Contusion of thoracic wall Pain of left lower extremity Contact with and (suspected) exposure to other viral communicable diseases Contusion of left wrist Left elbow contusion Contusion of left shoulder Scalp contusion Injury of left elbow Injury of left s (more content not included)... Normal [facility] Office Visit Reporton 2023 Office Visit Report [facility] [address] [place] [address] OFFICE VISIT Date of Service: 04/19/24 MR#: [id number] Acct: [id number] Patient: LAUREN ALCARAZ Rep #: [id number] : 1940 Provider: ERIK Mckenna Age/Sex: 83/F Location: [facility] Status: Signed Intake Vital Signs 04/17/24 06:55 04/19/24 11:11 Height 4 ft 8 in Weight: 103 lb BP 140/68 H Blood Pressure Location Rt brachial Position Sitting Respiration 16 Pulse 72 Pulse Source NIBP Temp 98.1 F Temp Source Temporal Pulse Oximetry (%) 93 Oxygen Delivery Method room air Intake Visit Reasons: NAUSEA/VOMITING Chief Complaint: N/V Automatic Serging Machine Operator Required: No Is patient in pain?: No [...] help. wants RX for different shingles med. [facility] Medical History Contusion of right foot Kyphoscoliosis [...] artery ( 1989) Atherosclerotic heart disease of [place] coronary artery without angina pectoris Essential hypertension [...] above) Ex (more content not included)... Normal [facility] Emergency Department Summary on 04-17-2024 Emergency Department Summary [facility] Medical Records Department [address] [place] [address] Emergency Department Summary 04/17/24 MR#: [id number] Acct: [id number] Name: LAUREN ALCARAZ Rep #: [id number] : 1940 83 From: Vincent Morris DO [...] vomiting. Patient denies any paresthesias or weakness. [facility] Medical History Contusion of right foot Kyphoscoliosis [...] artery ( 1989) Atherosclerotic heart disease of [place] coronary artery without angina pectoris Essential hypertension [...] denosumab 60 mg/mL subcutaneous 60 mg subcut [id number] #1 mL 02/18/24 Unknown Rx syringe (Prolia) [...] mcg/mL i (more content not included)... Normal [facility] Pulmonary Visit Reporton Pulmonary Visit Report [facility] [place] [address] [place] [address] OFFICE VISIT Date of Service: 04/05/24 MR#: [id number] Acct: [id number] Name: LAUREN ALCARAZ Rep #: [id number] : 1940 Provider: BURAK Vincent Age/Sex: 83/F Location: [facility] Status: Signed Assessment and Plan Assessment and [...] uncomplicated Plan Details Follow Up: 6 Months ([facility]) HPI 6 M FU Chief Complaint: [...] 6 M FU Chief Complaint: b12 injection Automatic Serging Machine Operator Required: No DME Vendor: oxygen [employer] Accompanied [...] 04/05/24 Hi (more content not included)... Normal [facility] Re-Evaluation - PT (1)on Re-Evaluation - PT (1) [facility] Physical Therapy [facility] [address] [place] [address] / REEVALUATION / MEDICARE RECERTIFICATION PHYSICAL THERAPY MR#: [id number] Acct: [id number] Name: LAUREN ALCARAZ Rep #: [id number] : 1940 83 From: Vincent Amado DPT, OCS, CSCS Referring Dr.: Dr. Chema Perry MD Status:REG RCR Insurance: MEDICARE PART A B [place] [id number] Re-Evaluation Intro: Dr. Chema Perry MD, It [...] she goes without walker in the house. [facility] won't address it. Dr. Perry does not [...] to I HEP / exercises with the certified personal trainer. Plan Plan Plan: weekly x 4 then every other week x 4 weeks til end may to ensure smooth trasntion to HEp and certified personal trainer. Please focus on weight shifting adn LE strength progression in therapy. Therapist to chat with certified personal trainer with pt approval and work to a full certified personal trainer program. New goal set with fair [...] Goal 3:: Pt have confidence in her HEP/certified personal trainer ex regimen to continue to make [...] do not hesitate to contact me at [phone] by phone or if you have questions or concerns regarding this new plan of care! Sincerely, Vincent Amado, RYANT, OCS, CSCS 04/02/24 2059 CC: Dr. Chema Perry MD EBG Signed For Medicare only, by signing this I certify the plan of care. _ Physicians Signature Date Normal [facility] Office Visit Reporton 2023 Office Visit Report [facility] [address] [place] [address] OFFICE VISIT Date of Service: 04/01/24 MR#: [id number] Acct: [id number] Patient: LAUREN ALCARAZ Rep #: [id number] : 1940 Provider: IMB NURSE Age/Sex: 83/F Location: [facility] Status: Signed Intake Vital Signs 02/11/24 15:30 [...] denosumab 60 mg/mL subcutaneous 60 mg subcut [id number] #1 mL 02/18/24 04/01/24 Rx syringe (Prolia) [...] Performing Provider: Chema Perry MD Performing Location: [facility] Administered by: Dottie Cannon on 04/01/24 10:13 Dose Route Admin Location Dispensed Lot Number Expiration Date [facility] ufacturer 1,000 mcg IM Right deltoid 1 mL [id number] 06/18/25 52121-533-56 [facility] Comments: Patient provided medication. Patient [...] Date ___ (more content not included)... Normal [facility] CNOVon 03-25-2024 CNOV Normal [facility] Basic Metabolic Profile (BMP )on 03-18-2024 BUN/CRE 24.5 RATIO High 10-20 [facility] Comment on above: Performed By: #### L 500.2500 ####[facility] [address] [place], [address] CA,Total 9.3 mg/dL Normal 8.5-10.1 [facility] Comment on above: Performed By: #### L 500.2500 ####[facility] [address] [place], [address] Chloride [Moles/Vol] 105 mmol/L Normal 98-107 [facility] Comment on above: Performed By: #### L 500.2500 ####[facility] [address] [place], [address] CO2 [Moles/Vol] 28.0 mmol/L Normal 21.0-32.0 [facility] Comment on above: Performed By: #### L 500.2500 ####[facility] [address] [place], [address] Creatinine [Mass/Vol] 1.06 mg/dL High 0.55-1.02 [facility] Comment on above: Result Comment: The validity of the calculated GFR GFRAA in patients over 70 years has not been determined. Clinical correlation is essential. Performed By: #### L 500.2500 ####[facility] [address] [place], [address] EST GFR - AA 64 mL/min Normal >60 [facility] Comment on above: Result Comment: Afri can [place] GFR Calc Performed By: #### L 500.2500 ####[facility] [address] [place], [address] GAP 5 Normal 5-15 [facility] Comment on above: Performed By: #### L 500.2500 ####[facility] [address] [place], [address] GFR/1.73 sq M.predicted among non-blacks MDRD (S/P/Bld) [Vol rate/Area] 53 mL/min/{1.73_m2} Low >60 [facility] Comment on above: Result Comment: Non- GFR Calc Performed By: #### L 500.2500 ####[facility] [address] [place], [address] Glucose [Mass/Vol] 133 mg/dL High 74-106 [facility] Comment on above: Result Comment: Fast ing Glucose result greater than or equal to 126 mg/dL suggests DIABETES MELLITUS per A.D.A. criteria. Performed By: #### L 500.2500 ####[facility] [address] [place], [address] Potassium [Moles/Vol] 4.2 mmol/L Normal 3.5-5.1 [facility] Comment on above: Performed By: #### L 500.2500 ####[facility] [address] [place], [address] Sodium [Moles/Vol] 138 mmol/L Normal 136-145 [facility] Comment on above: Performed By: #### L 500.2500 ####[facility] [address] [place], [address] Urea nitrogen [Mass/Vol] 26 mg/dL High 7-18 [facility] Comment on above: Performed By: #### L 500.2500 ####[facility] [address] [place], [address] Foot min 3 Viewson 07-30-202 4 Foot min 3 Views [facility] [address] [place] [address] Foot min 3 Views MR#: [id number] Acct: [id number] Name: LAUREN ALCARAZ Rep #: [id number] : 1940 F 83 From: Sam stafford MD PCP: Dr. Chema Perry MD Status: REG CLI Study: Foot min 3 Views Date of Exam: 03/16/24 Exam# [id number] Ordering Dr: Jd Gallego PA [id number] STUDY: X-RAY - RIGHT FOOT CLINICAL: Female, [...] Signed: Sam Mac MD at 11:20 EDT , CC: Dr. Chema Perry MD; ERIK Dodson Hedis Analyst: Signed Normal [facility] Urgent Care Visit Reporton 0 03-16-2024 Urgent Care Visit Report [facility] [address] [place] [address] OFFICE VISIT Date of Service: 03/16/24 MR#: [id number] Acct: [id number] Name: LAUREN ALCARAZ Rep #: [id number] : 1940 Provider: ERIK Dodson Age/Sex: 83/F Location: [facility] Status: Signed Intake Vital Signs 02/11/24 15:30 [...] POSSIBLE BROKEN BONE Chief Complaint: b12 injection Automatic Serging Machine Operator Required: No Is patient in pain?: Yes [...] denosumab 60 mg/mL subcutaneous 60 mg subcut [id number] #1 mL 02/18/24 03/16/24 Rx syringe (Prolia) [...] bad towards the endc of the day. [facility] Medical History (Updated 03/16/24 @ 12:05 by Jd VALENCIA, PA) Contusion of right foot Kyphoscoliosis deformity of spine Bee sting Lumbar contusion (more content not included)... Normal [facility] Re-Evaluation - PT (1)on Re-Evaluation - PT (1) [facility] Physical Therapy [facility] [address] [place] [address] / REEVALUATION / MEDICARE RECERTIFICATION PHYSICAL THERAPY MR#: [id number] Acct: [id number] Name: LAUREN ALCARAZ Rep #: [id number] : 1940 83 From: Vincent Amado DPT, OCS, CSCS Referring Dr.: Dr. Chema Perry MD Status:REG RCR Insurance: MEDICARE PART A B [id number] [id number] Re-Evaluation Intro: Dr. Chema Perry MD, It has been my pleasure to treat LAUREN ALCARAZ over the last 15 visits for dizzyness. Please see the progress note below for an update on the physical therapy plan of care! Subjective Subjective: Workouts in PT are going well. Doesn't know if it is helping with steadiness but vertigo feels better. Will go to [facility] tomorrow to see emr implementation specialist. Will look at LB scoilosis. Wondering if they can help with scoliosis being bent over. Wants breathing and steadiness to be things that can be improved with this doctor. says that she still needs lots of help with steadiness and not seeing huge improvements on that. Wants to continue via in clinic 2x/weeka nd certified personal trainer 3x/week. Objective Objective/Function: Pt has poor [...] do not hesitate to contact me at [phone] by phone or if you have questions or concerns regarding this new plan of care! Sincerely, Vincent Amado, RYANT, OCS, CSCS 03/04/24 1348 CC: Dr. Chema Perry MD EBG Signed For Medicare only, by signing this I certify the plan of care. _ Physicians Signature Date Normal [facility] Office Visit Reporton 2023 Office Visit Report [facility] [address] [place] [address] OFFICE VISIT Date of Service: 02/23/24 MR#: [id number] Acct: [id number] Patient: LAUREN ALCARAZ Rep #: [id number] : 1940 Provider: MOHAMUD NURSE Age/Sex: 83/F Location: [facility] Status: Signed Intake Vital [...] Performing Provider: Chema Perry MD Performing Location: [facility] Administered by: Josselin Kat MA on 02/23/24 11:02 Dose Route Admin Location Dispensed Lot Number Expiration Date NDC Man ufacturer 1,000 mcg IM right delt 1 mL [id number] 06/18/25 33721-558-03 [facility] Comments: PT TOLERATED WELL. Assessment and Plan Assessment and Plan (1) Vitamin B 12 deficiency: Status: Acute Orders: Orders Vitamin B12 Today E53.8 - Deficiency of other specified B group vitamins Clinical Quality Measures Falls Risk Screening/Assistive Devices Have you fallen in the past year?: No 02/23/24 1548 Date Chema Luna Signature: Date (if applicable) CC: Normal [facility] Miscellaneous Lab Procedureo n 02-16-2024 MISC LAB TEST Normal [facility] Comment on above: Order Comment: Comme nts: SE antibodies [facility]:[id number] SER/RTGAD [id number] SER/RT Result Comment: TEST RESULTS LIMITS SE-65 Autoantibody SE-65 <5.0 U/mL 0.0-5.0 TESTING PERFORMED AT [facility]. ORIGINAL REPORT ON FILE IN LAB CONTAINS ADDITIONAL TEST SITE INFORMATION. Performed By: #### L 506.0400, L801.1541, L503.0105, L501.9520, L501.78567, L500.4050 ####[facility] [address] [place], [address] Comprehensive Metabolic Prof ilon 02-12-2024 Albumin [Mass/Vol] 3.7 g/dL Normal 3.2-5.0 [facility] Comment on above: Order Comment: SE a ntibodies [facility]:[id number] Performed By: #### L 506.0400, L801.1541, L503.0105, L501.9520, L501.30717, L500.4050 ####[facility] [address] [place], [address] Albumin/Globulin [Mass ratio] 1.1 {ratio} Normal 0.9-2.4 [facility] Comment on above: Order Comment: ES a ntibodies [facility]:[id number] Performed By: #### L 506.0400, L801.1541, L503.0105, L501.9520, L501.85169, L500.4050 ####[facility] [address] [place], [address] ALK P 76 U/L Normal 45-117 [facility] Comment on above: Order Comment: SE a ntibodies [facility]:[id number] Performed By: #### L 506.0400, L801.1541, L503.0105, L501.9520, L501.43085, L500.4050 ####[facility] [address] [place], [address] ALT [Catalytic activity/Vol] 31 U/L Normal 13-56 [facility] Comment on above: Order Comment: SE a ntibodies [facility]:[id number] Performed By: #### L 506.0400, L801.1541, L503.0105, L501.9520, L501.29001, L500.4050 ####[facility] [address] [place], [address] AST [Catalytic activity/Vol] 24 U/L Normal 15-37 [facility] Comment on above: Order Comment: SE a ntibodies [facility]:[id number] Performed By: #### L 506.0400, L801.1541, L503.0105, L501.9520, L501.90618, L500.4050 ####[facility] [address] [place], [address] Bilirubin [Mass/Vol] 0.80 mg/dL Normal 0.20-1.00 [facility] Comment on above: Order Comment: SE a ntibodies [facility]:[id number] Result Comment: For patients on eltrombopag therapy, use of Dimension [place] TBIL is not recommended. Performed By: #### L 506.0400, L801.1541, L503.0105, L501.9520, L501.76577, L500.4050 ####[facility] [address] [place], [address] BUN/CRE 21.2 RATIO High 10-20 [facility] Comment on above: Order Comment: SE a ntibodies [facility]:[id number] Performed By: #### L 506.0400, L801.1541, L503.0105, L501.9520, L501.11970, L500.4050 ####[facility] [address] [place], [address] CA,Total 9.6 mg/dL Normal 8.5-10.1 [facility] Comment on above: Order Comment: SE a ntibodies [facility]:[id number] Performed By: #### L 506.0400, L801.1541, L503.0105, L501.9520, L501.22542, L500.4050 ####[facility] [address] [place], [address] Chloride [Moles/Vol] 103 mmol/L Normal 98-107 [facility] Comment on above: Order Comment: SE a ntibodies [facility]:[id number] Performed By: #### L 506.0400, L801.1541, L503.0105, L501.9520, L501.38794, L500.4050 ####[facility] [address] [place], [address] CO2 [Moles/Vol] 30.0 mmol/L Normal 21.0-32.0 [facility] Comment on above: Order Comment: SE snowGiferent [facility]:[id number] Performed By: #### L 506.0400, L801.1541, L503.0105, L501.9520, L501.31763, L500.4050 ####[facility] [address] [place], [address] Creatinine [Mass/Vol] 1.13 mg/dL High 0.55-1.02 [facility] Comment on above: Order Comment: SE kumar ntibGiferent [facility]:[id number] Result Comment: The validity of the calculated GFR GFRAA in patients over 70 years has not been determined. Clinical correlation is essential. Performed By: #### L 506.0400, L801.1541, L503.0105, L501.9520, L501.62794, L500.4050 ####[facility] [address] [place], [address] EST GFR - AA 59 mL/min Low >60 [facility] Comment on above: Order Comment: SE kumar ntibGiferent [facility]:[id number] Result Comment: Afri can [place] GFR Calc Performed By: #### L 506.0400, L801.1541, L503.0105, L501.9520, L501.00388, L500.4050 ####[facility] [address] [place], [address] GAP 7 Normal 5-15 [facility] Comment on above: Order Comment: SE kumar ntibGiferent [facility]:[id number] Performed By: #### L 506.0400, L801.1541, L503.0105, L501.9520, L501.19584, L500.4050 ####[facility] [address] [place], [address] GFR/1.73 sq M.predicted among non-blacks MDRD (S/P/Bld) [Vol rate/Area] 49 mL/min/{1.73_m2} Low >60 [facility] Comment on above: Order Comment: SE snowGiferent [facility]:[id number] Result Comment: Non- GFR Calc Performed By: #### L 506.0400, L801.1541, L503.0105, L501.9520, L501.91708, L500.4050 ####[facility] [address] [place], [address] Globulin (S) [Mass/Vol] 3.5 g/dL Normal 2.2-4.2 [facility] Comment on above: Order Comment: SE snowGiferent [facility]:[id number] Performed By: #### L 506.0400, L801.1541, L503.0105, L501.9520, L501.26589, L500.4050 ####[facility] [address] [place], [address] Glucose [Mass/Vol] 106 mg/dL Normal 74-106 [facility] Comment on above: Order Comment: SE snowGiferent [facility]:[id number] Result Comment: Fast ing Glucose result from 100 to 125 mg/dL suggests IMPAIRED HOMEOSTASIS per A.D.A. criteria. Performed By: #### L 506.0400, L801.1541, L503.0105, L501.9520, L501.22441, L500.4050 ####[facility] [address] [place], [address] Potassium [Moles/Vol] 3.6 mmol/L Normal 3.5-5.1 [facility] Comment on above: Order Comment: SE snowGiferent [facility]:[id number] Performed By: #### L 506.0400, L801.1541, L503.0105, L501.9520, L501.53589, L500.4050 ####[facility] [address] [place], [address] Sodium [Moles/Vol] 140 mmol/L Normal 136-145 [facility] Comment on above: Order Comment: SE a ntibodies [facility]:[id number] Performed By: #### L 506.0400, L801.1541, L503.0105, L501.9520, L501.48200, L500.4050 ####[facility] [address] [place], [address] T PROT 7.2 g/dL Normal 6.4-8.2 [facility] Comment on above: Order Comment: SE a ntibodies [facility]:[id number] Performed By: #### L 506.0400, L801.1541, L503.0105, L501.9520, L501.50081, L500.4050 ####[facility] [address] [place], [address] Urea nitrogen [Mass/Vol] 24 mg/dL High 7-18 [facility] Comment on above: Order Comment: SE a ntibodies [facility]:[id number] Performed By: #### L 506.0400, L801.1541, L503.0105, L501.9520, L501.12104, L500.4050 ####[facility] [address] [place], [address] Free T3on 02-12-2024 Free T3 [Mass/Vol] 1.8 pg/mL Low 2.18-3.98 [facility] Comment on above: Order Comment: SE a ntibodies [facility]:[id number] Performed By: #### L 506.0400, L801.1541, L503.0105, L501.9520, L501.37739, L500.4050 ####[facility] [address] [place], [address] T4 Free Directon 02-12-2024 T4 FREE DIRECT 1.12 ng/dL Normal 0.76-1.46 [facility] Comment on above: Order Comment: SE a ntibodies [facility]:[id number] Performed By: #### L 506.0400, L801.1541, L503.0105, L501.9520, L501.30462, L500.4050 ####[facility] [address] [place], [place], [address] Thyroid Stim Hormone (TSH)on 02-12-2024 TSH 1.45 uIU/mL Normal 0.358-3.74 [facility] Comment on above: Order Comment: ES a ntibodies [facility]:[id number] Performed By: #### L 506.0400, L801.1541, L503.0105, L501.9520, L501.47985, L500.4050 ####[facility] [address] [place], [place], [address] Vitamin B12on 02-12-2024 Cobalamin (Vitamin B12) [Mass/Vol] 1092 pg/mL High 211-911 [facility] Comment on above: Performed By: #### L 506.0400, L801.1541, L503.0105, L501.9520, L501.16185, L500.4050 ####[facility] [address] [place], [place], [address] /Yanni 02-11-2024 MR/BMS.Jaime [facility] [address] [place], [place] [address] OFFICE VISIT Date of Service: 02/11/24 MR#: [id number] Acct: [id number] Name: LAUREN ALCARAZ Rep #: [id number] : 1940 Provider: Dr. Chema williamson MD Age/Sex: 83/F [facility] Status: Signed Intake Vital Signs 08/13/23 15:36 [...] 6 M FU Chief Complaint: 6m f/u Automatic Serging Machine Operator Required: No Accompanied by: Self Is patient [...] denosumab 60 mg/mL subcutaneous 60 mg subcut [id number] #1 mL 02/05/23 02/11/24 Rx syringe (Prolia) [...] you fallen in the past year?: Yes [facility] Medical History (Updated 02/12/24 @ 08:53 by [...] artery ( 1989) Atherosclerotic heart disease of [place] coronary artery without angina pectoris Essential hypertension [...] Hypertension Cardio (more content not included)... Normal [facility] No Panel InformationOrdered By: Chema Perry on 10-14-2023 Free Triiodothyronine (T3) pg/dL 1.8 pg/mL 2.18-3.98 [facility] Serum or plasma thyroid stim ulating hormone (TSH) measurement (units/volume)Ordered By: Chema Perry on 10-14-2023 TSH Qn 1.27 uIU/mL 0.358-3.74 [facility] Thin prep Papanicolaou smear with manual screeningOrdered By: Chema Perry on 10-14-2023 Thin prep Papanicolaou smear with manual screening 1.20 ng/dL 0.76-1.46 [facility] Laboratory - Chemistry and C hemistry - challengeOrdered By: Chema Perry on 04-22-2023 Free T4 [Mass/Vol] 1.33 ng/dL 0.76-1.46 [facility] No Panel InformationOrdered By: Chema Perry on 04-22-2023 Free Triiodothyronine (T3) pg/dL 1.9 pg/mL 2.18-3.98 [facility] Thyroid Stimulating Hormone (TSH) 3.33 uIU/mL 0.358-3.74 [facility] Laboratory - Chemistry and C hemistry - challengeOrdered By: Dr. Perry on 01-15-2023 Free T4 [Mass/Vol] 1.10 ng/dL 0.76-1.46 [facility] No Panel InformationOrdered By: Dr. Perry on 01-15-2023 Free Triiodothyronine (T3) pg/dL 1.7 pg/mL 2.18-3.98 [facility] Thyroid Stimulating Hormone (TSH) 1.63 uIU/mL 0.358-3.74 [facility] MR Brain WO contraston 12-04 * * *Final Report* * * DATE OF EXAM: Dec 04 2022 2:13PM [facility] 3015 - MRI BRAIN W QUANT [...] dementia protocol and 3-D post-processing using the [employer] software at an independent workstation with concurrent physician supervision and images were created, reviewed and archived. MQ: [id number] COMPARISON: None RESULT: QUALITATIVE: Acute Intracranial Process: None. Chronic Intracranial Process: Moderate chronic microvascular ischemic change.. Age related white matter changes ([facility]) rating: White matter lesions: 2 Basal ganglia [...] Luis Manuel 2010). DIVISION OF RADIOLOGY Provider, [facility] - 12/04/2022 * * *Final Report* * * DATE OF EXAM: Dec 04 2022 2:13PM [facility] 3015 - MRI BRAIN W QUANT [...] dementia protocol and 3-D post-processing using the [employer] software at an independent workstation with concurrent [...] = Focal Lesions 2 = Beginning of [place] 3 = Diffuse Involvement of Entire Region [...] results from the analysis charts for details. Hedis Analyst: ARTHUR Transcribe Date/Time: Dec 04 2022 2:45P Dictated by : SUSAN LOMELI MD This examination was interpreted and the report reviewed and electronically signed by: SUSAN LOMELI MD on Dec 04 2022 3:20PM [facility] MR Unspecified body region 3 D post processingon 12-04-2022 * * *Final Report* * * DATE OF EXAM: Dec 04 2022 2:13PM [facility] 0280 - MRI 3D POST PROCESSING [...] dementia protocol and 3-D post-processing using the [employer] software at an independent workstation with concurrent [...] Luis Manuel 2010). DIVISION OF RADIOLOGY Provider, [facility] - 12/04/2022 * * *Final Report* * * DATE OF EXAM: Dec 04 2022 2:13PM [facility] 0280 - MRI 3D POST PROCESSING [...] dementia protocol and 3-D post-processing using the [employer] software at an independent workstation with concurrent [...] = Focal Lesions 2 = Beginning of [place] 3 = Diffuse Involvement of Entire Region [...] results from the analysis charts for details. Hedis Analyst: ARTHUR Transcribe Date/Time: Dec 04 2022 2:45P Dictated by : SUSAN LOMELI MD This examination was interpreted and the report reviewed and electronically signed by: SUSAN LOMELI MD on Dec 04 2022 3:20PM EST [facility] No Panel Informationon 12-04 IMPRESSION: * No evidence [...] = Focal Lesions 2 = Beginning of [place] 3 = Diffuse Involvement of Entire Region [...] results from the analysis charts for details. Hedis Analyst: ARTHUR Transcribe Date/Time: Dec 04 2022 2:45P Dictated by : SUSAN LOMELI MD This examination was interpreted and the report reviewed and electronically signed by: SUSAN LOMELI MD on Dec 04 2022 3:20PM EST DIVISION OF RADIOLOGY Radiology Study observation (narrative) [facility] No Panel InformationOrdered By: [facility] Provider on 12-04-2022 [facility] Absolute lymphocyte countOrd ered By: Dr. Perry on 12-03-2022 Lymphocytes Auto (Unsp spec) [#/Vol] 1.62 10*3/uL 0.83-4.51 [facility] Basophil percentageOrdered B y: Dr. Perry on 12-03-2022 Basophils/100 WBC (Bld) 0.7 % 0-1 [facility] Bilirubin [Mass/Vol] 0.60 mg/dL 0.20-1.00 [facility] Comment on above: For patients on eltr ombopag therapy, use of Dimension [place] TBIL is not recommended. Chloride [Moles/Vol] 107 mmol/L 98-107 [facility] Cholesterol [Mass/Vol] 124 mg/dL <200 [facility] Comment on above: <200 mg/dL Desirable 200-240 mg/dL Borderline >240 mg/dL High Risk Eosinophils/100 WBC (Bld) 3.0 % 0-5 [facility] Glucose [Mass/Vol] 101 mg/dL 74-106 [facility] Comment on above: Fasting Glucose resu lt from 100 to 125 mg/dL suggests IMPAIRED HOMEOSTASIS per A.D.A. criteria. Neutrophils (Bld) [#/Vol] 3.5 10*3/uL 2.0-7.7 [facility] Neutrophils/100 WBC (Bld) 61.8 % 47-70 [facility] Potassium [Moles/Vol] 3.7 mmol/L 3.5-5.1 [facility] Protein [Mass/Vol] 7.1 g/dL 6.4-8.2 [facility] Sodium [Moles/Vol] 137 mmol/L 136-145 [facility] Triglyceride [Mass/Vol] 132 mg/dL <199 [facility] Comment on above: The drugs N-Acetylcy steine and Metamizole may falsely depress this assay.Serum Triglycerides Reference Interval Normal <150 mg/dL Borderline high 150 - 199 mg/dL High 200 - 499 mg/dL Very High > or = 500 mg/dL WBC (Bld) [#/Vol] 5.7 10*3/uL 4.4-11.0 [facility] Blood erythrocytes count (nu mber/volume)Ordered By: Dr. Perry on 12-03-2022 RBC (Bld) [#/Vol] 4.50 10*6/uL 4.2-5.4 [facility] Blood hemoglobin measurement (mass/volume)Ordered By: Dr. Perry on 12-03-2022 Hemoglobin (Bld) [Mass/Vol] 12.1 g/dL 12.0-15.0 [facility] Blood lymphocytes/100 leukoc ytesOrdered By: Dr. Perry on 12-03-2022 Lymphocytes/100 WBC (Bld) 28.5 % 19-41 [facility] Blood monocytes/100 leukocyt esOrdered By: Dr. Perry on 12-03-2022 Monocytes/100 WBC (Bld) 5.8 % 0-10 [facility] Blood platelet mean volumeOr dered By: Dr. Perry on 12-03-2022 Platelet mean volume (Bld) [Entitic vol] 10.2 fL 6.2-12.0 [facility] Determination of erythrocyte mean corpuscular volume (MCV)Ordered By: Dr. Perry on 12-03-2022 MCV (RBC) [Entitic vol] 86.0 fL 81-99 [facility] Hematocrit Auto (Bld) [Volum e fraction]Ordered By: Dr. Perry on 12-03-2022 Hematocrit (Bld) [Volume fraction] 38.7 % 37-47 [facility] Laboratory - Chemistry and C hemistry - challengeOrdered By: Dr. Perry on 12-03-2022 ALP [Catalytic activity/Vol] 70 U/L 45-117 [facility] ALT [Catalytic activity/Vol] 24 U/L 13-56 [facility] CO2 [Moles/Vol] 25.0 mmol/L 21.0-32.0 [facility] Cobalamin (Vitamin B12) [Mass/Vol] 1344 pg/mL 211-911 [facility] Free T4 [Mass/Vol] 1.23 ng/dL 0.76-1.46 [facility] Globulin (S) [Mass/Vol] 3.5 g/dL 2.2-4.2 [facility] Urea nitrogen/Creatinine [Mass ratio] 25.5 mg/mg 10-20 [facility] Laboratory - Hematology and Cell countsOrdered By: Dr. Perry on 12-03-2022 Erythrocyte distribution width (RBC) [Entitic vol] 51.3 fL 35.1-43.9 [facility] Erythrocyte distribution width (RBC) [Ratio] 16.1 % 11.6-14.6 [facility] Immature granulocytes/100 WBC (Bld) 0.200 % 0.0-0.9 [facility] Comment on above: IG% - Immature Granu locytes (promyelocytes, myelocytes and metamyelocytes) > 1% indicates that a LEFT SHIFT is Present. MCH (RBC) [Entitic mass] 26.9 pg 27.0-32.0 [facility] Nucleated RBC/100 WBC (Bld) [Ratio] 0 % 0-5 [facility] MCHC Auto (RBC) [Mass/Vol]Or dered By: Dr. Perry on 12-03-2022 MCHC (RBC) [Mass/Vol] 31.3 g/dL 32-36 [facility] No Panel InformationOrdered By: Dr. Perry on 12-03-2022 Estimated GFR (MDRD) Amer 86 mL/min >60 [facility] Comment on above: GFR Calc Estimated GFR (MDRD) Non-Af Amer 71 mL/min >60 [facility] Comment on above: Non- GFR Calc Free Triiodothyronine (T3) pg/dL 1.9 pg/mL 2.18-3.98 [facility] Thyroid Stimulating Hormone (TSH) 5.10 uIU/mL 0.358-3.74 [facility] Vitamin D 25-Hydroxy 54.4 ng/mL [facility] Comment on above: Vitamin D 25(OH) Sta tus Range Deficiency <20 ng/mL (50nmol/L) Insufficiency 20 - 30 ng/mL (50 - 75 nmol/L) Sufficiency 30 - 100 ng/mL (75 - 250 nmol/L) Toxicity >100 ng/mL (>250 nmol/L) Platelets bldOrdered By: Dr. Perry on 12-03-2022 Platelets (Bld) [#/Vol] 244 10*3/uL 150-450 [facility] Serum or plasma albumin osiris urement (mass/volume)Ordered By: Dr. Perry on 12-03-2022 Albumin [Mass/Vol] 3.6 g/dL 3.2-5.0 [facility] Serum or plasma albumin/glob ulin mass ratioOrdered By: Dr. Perry on 12-03-2022 Albumin/Globulin [Mass ratio] 1.0 {ratio} 0.9-2.4 [facility] Serum or plasma calcium osiris urement (mass/volume)Ordered By: Dr. Perry on 12-03-2022 Calcium [Mass/Vol] 8.7 mg/dL 8.5-10.1 [facility] Serum or plasma cholesterol in HDL measurement (mass/volume)Ordered By: Dr. Perry on 12-03-2022 Cholesterol in HDL [Mass/Vol] 42 mg/dL >40 [facility] Comment on above: The drugs N-Acetylcy steine and Metamizole may falsely depress this assay. Reference Range HDL <40 mg/dL Low HDL Cholesterol HDL >or= 60 mg/dL High HDL Cholesterol Serum or plasma cholesterol in VLDL measurement (mass/volume)Ordered By: Dr. Perry on 12-03-2022 Cholesterol in VLDL [Mass/Vol] 26 mg/dL 5-40 [facility] Serum or plasma creatinine m easurement (mass/volume)Ordered By: Dr. Perry on 12-03-2022 Creatinine [Mass/Vol] 0.82 mg/dL 0.55-1.02 [facility] Comment on above: The validity of the calculated GFR & GFRAA in patients over 70 years has not been determined. Clinical correlation is essential. Serum or plasma low density lipoprotein (LDL) cholesterol measurement (mass/volume)Ordered By: Dr. Perry on 12-03-2022 Cholesterol in LDL [Mass/Vol] 56 mg/dL 0-130 [facility] Serum or plasma urea nitroge n measurement (mass/volume)Ordered By: Dr. Perry on 12-03-2022 Urea nitrogen [Mass/Vol] 21 mg/dL 7-18 [facility] Thin prep Papanicolaou smear with manual screeningOrdered By: Dr. Perry on 12-03-2022 Thin prep Papanicolaou smear with manual screening 23 U/L 15-37 [facility] Thin prep Papanicolaou smear with manual screening 5 5-15 [facility] No Panel Informationon 10-23 POC SARS CoV-2 Antigen Negative [facility] Basophil percentageOrdered B y: Dr. Perry on 07-12-2022 Basophil percentage < 0.9 mg/dL 0.55-1.02 [facility] No Panel InformationOrdered By: Dr. Perry on 07-12-2022 Bedside Estimated GFR (eGFR) > 60.0000 mL/min >60 [facility] Laboratory - Microbiology an d Antimicrobial susceptibilityon 07-07-2022 SARS-CoV-2 (COVID-19) RNA LZÁARO+probe Ql (Unsp spec) Not detected [facility] No Panel Informationon 07-07 Influenza Types A,B Rapid (Clinic) Not detected [facility] Absolute lymphocyte counton 03-07-2022 Lymphocytes Auto (Unsp spec) [#/Vol] 2.14 10*3/uL 0.83-4.51 [facility] Work Phone: Basophil percentageon 2021 Basophils/100 WBC (Bld) 0.9 % 0-1 [facility] Work Phone: [phone] Bilirubin [Mass/Vol] 0.60 mg/dL 0.20-1.00 [facility] Work Phone: Comment on above: For patients on eltr ombopag therapy, use of Dimension [place] TBIL is not recommended. Chloride [Moles/Vol] 108 mmol/L 98-107 [facility] Work Phone: Eosinophils/100 WBC (Bld) 2.6 % 0-5 [facility] Work Phone: Glucose [Mass/Vol] 92 mg/dL 74-106 [facility] [place] Work Phone: Neutrophils (Bld) [#/Vol] 3.7 10*3/uL 2.0-7.7 [facility] Work Phone: Neutrophils/100 WBC (Bld) 57.3 % 47-70 [facility] Work Phone: [phone] Potassium [Moles/Vol] 4.3 mmol/L 3.5-5.1 [facility] Work Phone: Protein [Mass/Vol] 7.3 g/dL 6.4-8.2 [facility] [place] Work Phone: Sodium [Moles/Vol] 137 mmol/L 136-145 [facility] [place] Work Phone: WBC (Bld) [#/Vol] 6.5 10*3/uL 4.4-11.0 [facility] [place] Work Phone: Blood erythrocytes count (nu mber/volume)on 03-07-2022 RBC (Bld) [#/Vol] 4.68 10*6/uL 4.2-5.4 [facility] Work Phone: Blood hemoglobin measurement (mass/volume)on 03-07-2022 Hemoglobin (Bld) [Mass/Vol] 13.6 g/dL 12.0-15.0 [facility] Work Phone: Blood lymphocytes/100 leukoc yteson 03-07-2022 Lymphocytes/100 WBC (Bld) 32.9 % 19-41 [facility] Work Phone: Blood monocytes/100 leukocyt eson 03-07-2022 Monocytes/100 WBC (Bld) 6.0 % 0-10 [facility] Work Phone: Blood platelet mean volumeon 03-07-2022 Platelet mean volume (Bld) [Entitic vol] 11.1 fL 6.2-12.0 [facility] Work Phone: Determination of erythrocyte mean corpuscular volume (MCV)on 03-07-2022 MCV (RBC) [Entitic vol] 89.1 fL 81-99 [facility] Work Phone: Hematocrit Auto (Bld) [Volum e fraction]on 03-07-2022 Hematocrit (Bld) [Volume fraction] 41.7 % 37-47 [facility] Work Phone: Laboratory - Chemistry and C hemistry - challengeon 03-07-2022 ALP [Catalytic activity/Vol] 74 U/L 45-117 [facility] Work Phone: ALT [Catalytic activity/Vol] 17 U/L 13-56 [facility] Work Phone: CO2 [Moles/Vol] 23.0 mmol/L 21.0-32.0 [facility] Work Phone: Globulin (S) [Mass/Vol] 3.7 g/dL 2.2-4.2 [facility] Work Phone: Urea nitrogen/Creatinine [Mass ratio] 15.7 mg/mg 10-20 [facility] Work Phone: Laboratory - Hematology and Cell countson 03-07-2022 Erythrocyte distribution width (RBC) [Entitic vol] 43.3 fL 35.1-43.9 [facility] Work Phone: Erythrocyte distribution width (RBC) [Ratio] 13.2 % 11.6-14.6 [facility] Work Phone: Immature granulocytes/100 WBC (Bld) 0.300 % 0.0-0.9 [facility] Work Phone: Comment on above: IG% - Immature Granu locytes (promyelocytes, myelocytes and metamyelocytes) > 1% indicates that a LEFT SHIFT is Present. MCH (RBC) [Entitic mass] 29.1 pg 27.0-32.0 [facility] Work Phone: Nucleated RBC/100 WBC (Bld) [Ratio] 0 % 0-5 [facility] Work Phone: MCHC Auto (RBC) [Mass/Vol]on 03-07-2022 MCHC (RBC) [Mass/Vol] 32.6 g/dL 32-36 [facility] Work Phone: No Panel Informationon 03-07 Estimated GFR (MDRD) Amer 63 mL/min >60 [facility] Work Phone: [phone] Comment on above: GFR Calc Estimated GFR (MDRD) Non-Af Amer 52 mL/min >60 [facility] Work Phone: Comment on above: Non- GFR Calc Thyroid Stimulating Hormone (TSH) 2.09 uIU/mL 0.358-3.74 [facility] Work Phone: Vitamin D 25-Hydroxy 37.8 ng/mL [facility] Work Phone: Comment on above: Vitamin D 25(OH) Sta tus Range Deficiency <20 ng/mL (50nmol/L) Insufficiency 20 - 30 ng/mL (50 - 75 nmol/L) Sufficiency 30 - 100 ng/mL (75 - 250 nmol/L) Toxicity >100 ng/mL (>250 nmol/L) Platelets bldon 03-07-2022 Platelets (Bld) [#/Vol] 220 10*3/uL 150-450 [facility] Work Phone: Serum or plasma albumin osiris urement (mass/volume)on 03-07-2022 Albumin [Mass/Vol] 3.6 g/dL 3.2-5.0 [facility] [place] Work Phone: Serum or plasma albumin/glob ulin mass ratioon 03-07-2022 Albumin/Globulin [Mass ratio] 1.0 {ratio} 0.9-2.4 [facility] Work Phone: Serum or plasma calcium osiris urement (mass/volume)on 03-07-2022 Calcium [Mass/Vol] 8.7 mg/dL 8.5-10.1 [facility] [place] Work Phone: Serum or plasma creatinine m easurement (mass/volume)on 03-07-2022 Creatinine [Mass/Vol] 1.08 mg/dL 0.55-1.02 [facility] Work Phone: Comment on above: The validity of the calculated GFR & GFRAA in patients over 70 years has not been determined. Clinical correlation is essential. Serum or plasma urea nitroge n measurement (mass/volume)on 03-07-2022 Urea nitrogen [Mass/Vol] 17 mg/dL 7-18 [facility] Work Phone: Thin prep Papanicolaou smear with manual screeningon 03-07-2022 Thin prep Papanicolaou smear with manual screening 15 U/L 15-37 [facility] Work Phone: Thin prep Papanicolaou smear with manual screening 6 5-15 [facility] Work Phone: No Panel Informationon 02-25 Homocysteine 11.6 umol/L 3.2-10.7 [facility] Work Phone: Serum or plasma methylmalona te measurement (moles/volume)on 02-25-2022 Methylmalonate [Moles/Vol] 214 nmol/L 0-378 [facility] Work Phone: Comment on above: Performed at: [address] [id number] Director: Leanna Muse MD, Phone: [phone] Absolute lymphocyte counton 02-15-2022 Lymphocytes Auto (Unsp spec) [#/Vol] 0.52 10*3/uL 0.83-4.51 [facility] Work Phone: Basophil percentageon 2021 Basophil percentage 0-5 SEEN /hpf 0-5 [facility] Work Phone: Basophils/100 WBC (Bld) 0.3 % 0-1 [facility] Work Phone: Chloride [Moles/Vol] 108 mmol/L 98-107 [facility] Work Phone: Eosinophils/100 WBC (Bld) 0.7 % 0-5 [facility] Work Phone: Glucose [Mass/Vol] 100 mg/dL 74-106 [facility] [place] Work Phone: Comment on above: Fasting Glucose resu lt from 100 to 125 mg/dL suggests IMPAIRED HOMEOSTASIS per A.D.A. criteria. Neutrophils (Bld) [#/Vol] 4.9 10*3/uL 2.0-7.7 [facility] Work Phone: Neutrophils/100 WBC (Bld) 85.0 % 47-70 [facility] Work Phone: Potassium [Moles/Vol] 3.9 mmol/L 3.5-5.1 [facility] Work Phone: Sodium [Moles/Vol] 137 mmol/L 136-145 [facility] [place] Work Phone: WBC (Bld) [#/Vol] 5.8 10*3/uL 4.4-11.0 [facility] [place] Work Phone: Bilirubin Test strip Ql (U)o n 02-15-2022 Bilirubin Ql (U) Negative Negative [facility] Work Phone: Blood erythrocytes count (nu mber/volume)on 02-15-2022 RBC (Bld) [#/Vol] 4.99 10*6/uL 4.2-5.4 [facility] Work Phone: Blood hemoglobin measurement (mass/volume)on 02-15-2022 Hemoglobin (Bld) [Mass/Vol] 14.4 g/dL 12.0-15.0 [facility] Work Phone: Blood lymphocytes/100 leukoc yteson 02-15-2022 Lymphocytes/100 WBC (Bld) 8.9 % 19-41 [facility] Work Phone: Blood manual differential co mment interpretation (narrative result)on 02-15-2022 Manual differential comment Jd (Bld) [Interp] See comment [facility] Work Phone: Comment on above: LYMPHOPENIA NOTED Blood monocytes/100 leukocyt eson 02-15-2022 Monocytes/100 WBC (Bld) 4.8 % 0-10 [facility] Work Phone: Blood platelet adequacy dete ction by light microscopyon 02-15-2022 Platelets LM Ql (Bld) ADEQUATE ADEQ [facility] Work Phone: Blood platelet mean volumeon 02-15-2022 Platelet mean volume (Bld) [Entitic vol] 10.8 fL 6.2-12.0 [facility] Work Phone: Determination of erythrocyte mean corpuscular volume (MCV)on 02-15-2022 MCV (RBC) [Entitic vol] 88.2 fL 81-99 [facility] Work Phone: Hematocrit Auto (Bld) [Volum e fraction]on 02-15-2022 Hematocrit (Bld) [Volume fraction] 44.0 % 37-47 [facility] Work Phone: Ketones Test strip Ql (U)on 02-15-2022 Ketones Ql (U) Negative Negative [facility] Work Phone: Laboratory - Chemistry and C hemistry - challengeon 02-15-2022 CO2 [Moles/Vol] 22.0 mmol/L 21.0-32.0 [facility] Work Phone: Urea nitrogen/Creatinine [Mass ratio] 15.1 mg/mg 10-20 [facility] Work Phone: Laboratory - Hematology and Cell countson 02-15-2022 Erythrocyte distribution width (RBC) [Entitic vol] 41.2 fL 35.1-43.9 [facility] Work Phone: Erythrocyte distribution width (RBC) [Ratio] 12.7 % 11.6-14.6 [facility] Work Phone: Immature granulocytes/100 WBC (Bld) 0.300 % 0.0-0.9 [facility] Work Phone: Comment on above: IG% - Immature Granu locytes (promyelocytes, myelocytes and metamyelocytes) > 1% indicates that a LEFT SHIFT is Present. MCH (RBC) [Entitic mass] 28.9 pg 27.0-32.0 [facility] Work Phone: Nucleated RBC/100 WBC (Bld) [Ratio] 0 % 0-5 [facility] Work Phone: MCHC Auto (RBC) [Mass/Vol]on 02-15-2022 MCHC (RBC) [Mass/Vol] 32.7 g/dL 32-36 [facility] Work Phone: Mucus LM Ql (Urine sed)on Mucus Ql (Urine sed) 0 SEEN /hpf [facility] Work Phone: Nitrite Test strip Ql (U)on 02-15-2022 Nitrite Ql (U) Positive Negative [facility] Work Phone: No Panel Informationon 02-15 Estimated Creatinine Clearance Calc 40.33 ml/min [facility] Work Phone: Estimated GFR (MDRD) Amer 99 mL/min >60 [facility] Work Phone: Comment on above: GFR Calc Estimated GFR (MDRD) Non-Af Amer 82 mL/min >60 [facility] Work Phone: Comment on above: Non- GFR Calc Platelets bldon 02-15-2022 Platelets (Bld) [#/Vol] 169 10*3/uL 150-450 [facility] Work Phone: Protein Test strip Ql (U)on 02-15-2022 Protein Ql (U) Negative Negative [facility] Work Phone: RBC morphologyon 02-15-2022 RBC morphology finding Nom (Bld) NORM C+C NORMAL NORM C&C [facility] Work Phone: Serum or plasma calcium osiris urement (mass/volume)on 02-15-2022 Calcium [Mass/Vol] 8.1 mg/dL 8.5-10.1 [facility] Work Phone: Serum or plasma creatinine m easurement (mass/volume)on 02-15-2022 Creatinine [Mass/Vol] 0.73 mg/dL 0.55-1.02 [facility] Work Phone: Comment on above: The validity of the calculated GFR & GFRAA in patients over 70 years has not been determined. Clinical correlation is essential. Serum or plasma urea nitroge n measurement (mass/volume)on 02-15-2022 Urea nitrogen [Mass/Vol] 11 mg/dL 7-18 [facility] Work Phone: Squamous epithelial cells de tection in urine sediment by light microscopyon 02-15-2022 Epithelial cells.squamous LM Ql (Urine sed) 0 SEEN /hpf 5-10 [facility] Work Phone: Thin prep Papanicolaou smear with manual screeningon 02-15-2022 Thin prep Papanicolaou smear with manual screening 7 5-15 [facility] Work Phone: Urine blood detectionon 07-0 RBC Ql (U) 25 /ul Negative [facility] Work Phone: RBC Ql (U) 0 SEEN /hpf 0-5 [facility] Work Phone: Urine clarityon 02-15-2022 Clarity (U) Clear Clear [facility] Work Phone: Urine color determinationon 02-15-2022 Color (U) Yellow Yellow [facility] Work Phone: Urine glucose detectionon Glucose Ql (U) Normal mg/dl Normal [facility] Work Phone: Urine leukocyte esterase det ection by dipstickon 02-15-2022 Leukocyte esterase Test strip Ql (U) 25 /ul Negative [facility] Work Phone: Urine pHon 02-15-2022 pH (U) 6.0 [pH] 5.0 - 8.0 [facility] Work Phone: Urine sediment bacteria coun t by microscopy (number/high power field)on 02-15-2022 Bacteria LM.HPF (Urine sed) [#/Area] 2 /[HPF] None Seen [facility] Work Phone: Urine specific gravity measu rementon 02-15-2022 Specific gravity (U) [Rel density] 1.010 1.002-1.030 [facility] Work Phone: Urobilinogen Auto test strip Ql (U)on 02-15-2022 Urobilinogen Ql (U) Normal mg/dl Normal [facility] Work Phone: Iron measurement (mass/mass) on 02-14-2022 Iron (Unsp spec) [Mass/Mass] 73 ug/dL 50-170 [facility] Work [phone] Laboratory - Chemistry and C hemistry - challengeon 02-14-2022 Cobalamin (Vitamin B12) [Mass/Vol] 318 pg/mL 211-911 [facility] Work Phone: Absolute lymphocyte counton 11-23-2021 Lymphocytes Auto (Unsp spec) [#/Vol] 1.90 10*3/uL 0.83-4.51 [facility] Work Phone: Basophil percentageon 2021 Basophils/100 WBC (Bld) 0.3 % 0-1 [facility] Work [phone] Bilirubin [Mass/Vol] 1.70 mg/dL 0.20-1.00 [facility] Work Phone: Comment on above: For patients on eltr ombopag therapy, use of Dimension [place] TBIL is not recommended. Chloride [Moles/Vol] 105 mmol/L 98-107 [facility] Work Phone: Eosinophils/100 WBC (Bld) 0.3 % 0-5 [facility] Work [phone] Glucose [Mass/Vol] 101 mg/dL 74-106 [facility] [place] Work Phone: Comment on above: Fasting Glucose resu lt from 100 to 125 mg/dL suggests IMPAIRED HOMEOSTASIS per A.D.A. criteria. Neutrophils (Bld) [#/Vol] 10.2 10*3/uL 2.0-7.7 [facility] Work Phone: Neutrophils/100 WBC (Bld) 78.9 % 47-70 [facility] Work [phone] Potassium [Moles/Vol] 3.6 mmol/L 3.5-5.1 [facility] Work Phone: Protein [Mass/Vol] 7.5 g/dL 6.4-8.2 [facility] [place] Work Phone: Sodium [Moles/Vol] 135 mmol/L 136-145 [facility] [place] Work Phone: WBC (Bld) [#/Vol] 12.9 10*3/uL 4.4-11.0 [facility] Work Phone: Blood erythrocytes count (nu mber/volume)on 11-23-2021 RBC (Bld) [#/Vol] 4.29 10*6/uL 4.2-5.4 [facility] Work Phone: Blood hemoglobin measurement (mass/volume)on 11-23-2021 Hemoglobin (Bld) [Mass/Vol] 13.0 g/dL 12.0-15.0 [facility] Work Phone: Blood lymphocytes/100 leukoc yteson 11-23-2021 Lymphocytes/100 WBC (Bld) 14.7 % 19-41 [facility] Work Phone: Blood monocytes/100 leukocyt eson 11-23-2021 Monocytes/100 WBC (Bld) 5.3 % 0-10 [facility] Work Phone: Blood platelet mean volumeon 11-23-2021 Platelet mean volume (Bld) [Entitic vol] 11.3 fL 6.2-12.0 [facility] Work Phone: Determination of erythrocyte mean corpuscular volume (MCV)on 11-23-2021 MCV (RBC) [Entitic vol] 93.2 fL 81-99 [facility] Work Phone: Hematocrit Auto (Bld) [Volum e fraction]on 11-23-2021 Hematocrit (Bld) [Volume fraction] 40.0 % 37-47 [facility] Work Phone: Laboratory - Chemistry and C hemistry - challengeon 11-23-2021 ALP [Catalytic activity/Vol] 139 U/L 45-117 [facility] Work Phone: ALT [Catalytic activity/Vol] 15 U/L 13-56 [facility] Work Phone: CO2 [Moles/Vol] 21.0 mmol/L 21.0-32.0 [facility] Work Phone: Globulin (S) [Mass/Vol] 4.5 g/dL 2.2-4.2 [facility] Work Phone: Urea nitrogen/Creatinine [Mass ratio] 20.4 mg/mg 10-20 [facility] Work Phone: Laboratory - Hematology and Cell countson 11-23-2021 Erythrocyte distribution width (RBC) [Entitic vol] 45.5 fL 35.1-43.9 [facility] Work Phone: Erythrocyte distribution width (RBC) [Ratio] 13.3 % 11.6-14.6 [facility] Work Phone: Immature granulocytes/100 WBC (Bld) 0.500 % 0.0-0.9 [facility] Work Phone: Comment on above: IG% - Immature Granu locytes (promyelocytes, myelocytes and metamyelocytes) > 1% indicates that a LEFT SHIFT is Present. MCH (RBC) [Entitic mass] 30.3 pg 27.0-32.0 [facility] Work Phone: Nucleated RBC/100 WBC (Bld) [Ratio] 0 % 0-5 [facility] Work Phone: MCHC Auto (RBC) [Mass/Vol]on 11-23-2021 MCHC (RBC) [Mass/Vol] 32.5 g/dL 32-36 [facility] Work Phone: No Panel Informationon 11-23 Estimated GFR (MDRD) Amer 80 mL/min >60 [facility] Work Phone: [phone] Comment on above: GFR Calc Estimated GFR (MDRD) Non-Af Amer 66 mL/min >60 [facility] Work Phone: Comment on above: Non- GFR Calc Thyroid Stimulating Hormone (TSH) 2.66 uIU/mL 0.358-3.74 [facility] Work Phone: Vitamin D 25-Hydroxy 46.1 ng/mL [facility] Work Phone: Comment on above: Vitamin D 25(OH) Sta tus Range Deficiency <20 ng/mL (50nmol/L) Insufficiency 20 - 30 ng/mL (50 - 75 nmol/L) Sufficiency 30 - 100 ng/mL (75 - 250 nmol/L) Toxicity >100 ng/mL (>250 nmol/L) Platelets bldon 11-23-2021 Platelets (Bld) [#/Vol] 209 10*3/uL 150-450 [facility] Work Phone: Serum or plasma albumin osiris urement (mass/volume)on 11-23-2021 Albumin [Mass/Vol] 3.0 g/dL 3.2-5.0 [facility] [place] Work Phone: Serum or plasma albumin/glob ulin mass ratioon 11-23-2021 Albumin/Globulin [Mass ratio] 0.7 {ratio} 0.9-2.4 [facility] Work Phone: Serum or plasma calcium osiris urement (mass/volume)on 11-23-2021 Calcium [Mass/Vol] 8.9 mg/dL 8.5-10.1 [facility] [place] Work Phone: Serum or plasma creatinine m easurement (mass/volume)on 11-23-2021 Creatinine [Mass/Vol] 0.88 mg/dL 0.55-1.02 [facility] Work Phone: Comment on above: The validity of the calculated GFR & GFRAA in patients over 70 years has not been determined. Clinical correlation is essential. Serum or plasma urea nitroge n measurement (mass/volume)on 11-23-2021 Urea nitrogen [Mass/Vol] 18 mg/dL 7-18 [facility] Work Phone: Thin prep Papanicolaou smear with manual screeningon 11-23-2021 Thin prep Papanicolaou smear with manual screening 20 U/L 15-37 [facility] Work Phone: Thin prep Papanicolaou smear with manual screening 9 5-15 [facility] Work Phone: Absolute lymphocyte counton 10-06-2021 Lymphocytes Auto (Unsp spec) [#/Vol] 1.63 10*3/uL 0.83-4.51 [facility] Work Phone: Basophil percentageon 2021 Basophils/100 WBC (Bld) 0.7 % 0-1 [facility] Work Phone: Chloride [Moles/Vol] 107 mmol/L 98-107 [facility] Work Phone: Eosinophils/100 WBC (Bld) 1.1 % 0-5 [facility] Work Phone: Glucose [Mass/Vol] 104 mg/dL 74-106 [facility] [place] Work Phone: Comment on above: Fasting Glucose resu lt from 100 to 125 mg/dL suggests IMPAIRED HOMEOSTASIS per A.D.A. criteria. Neutrophils (Bld) [#/Vol] 5.2 10*3/uL 2.0-7.7 [facility] Work Phone: Neutrophils/100 WBC (Bld) 69.3 % 47-70 [facility] Work Phone: Potassium [Moles/Vol] 3.8 mmol/L 3.5-5.1 [facility] Work Phone: Sodium [Moles/Vol] 137 mmol/L 136-145 [facility] [place] Work Phone: WBC (Bld) [#/Vol] 7.5 10*3/uL 4.4-11.0 [facility] [place] Work Phone: Blood erythrocytes count (nu mber/volume)on 02-19-2022 RBC (Bld) [#/Vol] 4.03 10*6/uL 4.2-5.4 [facility] Work Phone: Blood hemoglobin measurement (mass/volume)on 10-06-2021 Hemoglobin (Bld) [Mass/Vol] 12.6 g/dL 12.0-15.0 [facility] Work Phone: Blood lymphocytes/100 leukoc yteson 10-06-2021 Lymphocytes/100 WBC (Bld) 21.7 % 19-41 [facility] Work Phone: Blood monocytes/100 leukocyt eson 10-06-2021 Monocytes/100 WBC (Bld) 6.8 % 0-10 [facility] Work Phone: Blood platelet mean volumeon 10-06-2021 Platelet mean volume (Bld) [Entitic vol] 10.1 fL 6.2-12.0 [facility] Work Phone: Determination of erythrocyte mean corpuscular volume (MCV)on 10-06-2021 MCV (RBC) [Entitic vol] 91.6 fL 81-99 [facility] Work Phone: Hematocrit Auto (Bld) [Volum e fraction]on 10-06-2021 Hematocrit (Bld) [Volume fraction] 36.9 % 37-47 [facility] Work Phone: Laboratory - Chemistry and C hemistry - challengeon 10-06-2021 CO2 [Moles/Vol] 25.0 mmol/L 21.0-32.0 [facility] Work Phone: Urea nitrogen/Creatinine [Mass ratio] 32.1 mg/mg 10-20 [facility] Work Phone: Laboratory - Hematology and Cell countson 10-06-2021 Erythrocyte distribution width (RBC) [Entitic vol] 45.9 fL 35.1-43.9 [facility] Work Phone: Erythrocyte distribution width (RBC) [Ratio] 13.7 % 11.6-14.6 [facility] Work Phone: Immature granulocytes/100 WBC (Bld) 0.400 % 0.0-0.9 [facility] Work Phone: Comment on above: IG% - Immature Granu locytes (promyelocytes, myelocytes and metamyelocytes) > 1% indicates that a LEFT SHIFT is Present. MCH (RBC) [Entitic mass] 31.3 pg 27.0-32.0 [facility] Work Phone: Nucleated RBC/100 WBC (Bld) [Ratio] 0 % 0-5 [facility] Work Phone: MCHC Auto (RBC) [Mass/Vol]on 10-06-2021 MCHC (RBC) [Mass/Vol] 34.1 g/dL 32-36 [facility] Work Phone: No Panel Informationon 10-06 Estimated Creatinine Clearance Calc 40.18 ml/min [facility] Work Phone: Estimated GFR (MDRD) Amer 126 mL/min >60 [facility] Work Phone: Comment on above: GFR Calc Estimated GFR (MDRD) Non-Af Amer 104 mL/min >60 [facility] Work Phone: Comment on above: Non- GFR Calc Platelets bldon 10-06-2021 Platelets (Bld) [#/Vol] 207 10*3/uL 150-450 [facility] Work Phone: Serum or plasma calcium osiris urement (mass/volume)on 10-06-2021 Calcium [Mass/Vol] 8.3 mg/dL 8.5-10.1 [facility] [place] Work Phone: Serum or plasma creatinine m easurement (mass/volume)on 10-06-2021 Creatinine [Mass/Vol] 0.59 mg/dL 0.55-1.02 [facility] Work Phone: Comment on above: The validity of the calculated GFR & GFRAA in patients over 70 years has not been determined. Clinical correlation is essential. Serum or plasma urea nitroge n measurement (mass/volume)on 10-06-2021 Urea nitrogen [Mass/Vol] 19 mg/dL 7-18 [facility] Work Phone: Thin prep Papanicolaou smear with manual screeningon 10-06-2021 Thin prep Papanicolaou smear with manual screening 5 5-15 [facility] Work Phone: Basophil percentageon 2021 Basophil percentage 0 SEEN /hpf [facility] Work Phone: Bilirubin [Mass/Vol] 0.70 mg/dL 0.20-1.00 [facility] Work Phone: Comment on above: For patients on eltr ombopag therapy, use of Dimension [place] TBIL is not recommended. Protein [Mass/Vol] 6.9 g/dL 6.4-8.2 [facility] [place] Work Phone: Bilirubin Test strip Ql (U)o n 10-05-2021 Bilirubin Ql (U) Negative Negative [facility] Work Phone: Ketones Test strip Ql (U)on 10-05-2021 Ketones Ql (U) Negative Negative [facility] Work Phone: Laboratory - Chemistry and C hemistry - challengeon 10-05-2021 ALP [Catalytic activity/Vol] 139 U/L 45-117 [facility] Work Phone: ALT [Catalytic activity/Vol] 16 U/L 13-56 [facility] Work Phone: Globulin (S) [Mass/Vol] 3.9 g/dL 2.2-4.2 [facility] Work Phone: Mucus LM Ql (Urine sed)on Mucus Ql (Urine sed) 0 SEEN /hpf [facility] Work Phone: Nitrite Test strip Ql (U)on 10-05-2021 Nitrite Ql (U) Negative Negative [facility] Work Phone: No Panel Informationon 10-05 Troponin I High Sensitivity 8 pg/mL 3.0-54.0 [facility] Work Phone: Comment on above: Please Note: New [place] t Units and Gender Specific Reference Ranges. For more information see Policy Stat Procedure [place] High Sensitivity Troponin (TNIH) and attachments. SARS-CoV-2 Antigen (Rapid) [facility] Work Phone: Protein Test strip Ql (U)on 10-05-2021 Protein Ql (U) 30 mg/dl Negative [facility] Work Phone: Serum or plasma albumin osiris urement (mass/volume)on 10-05-2021 Albumin [Mass/Vol] 3.0 g/dL 3.2-5.0 [facility] [place] Work Phone: Serum or plasma albumin/glob ulin mass ratioon 10-05-2021 Albumin/Globulin [Mass ratio] 0.8 {ratio} 0.9-2.4 [facility] Work Phone: Squamous epithelial cells de tection in urine sediment by light microscopyon 10-05-2021 Epithelial cells.squamous LM Ql (Urine sed) 0-5 SEEN /hpf [facility] Work Phone: Thin prep Papanicolaou smear with manual screeningon 10-05-2021 Thin prep Papanicolaou smear with manual screening 12 U/L 15-37 [facility] Work Phone: Urine blood detectionon 09-18 RBC Ql (U) Negative Negative [facility] Work Phone: RBC Ql (U) 0 SEEN /hpf [facility] Work Phone: Urine clarityon 10-05-2021 Clarity (U) Clear Clear [facility] Work Phone: Urine color determinationon 10-05-2021 Color (U) Yellow Yellow [facility] Work Phone: Urine glucose detectionon Glucose Ql (U) Normal mg/dl Normal [facility] Work Phone: Urine leukocyte esterase det ection by dipstickon 10-05-2021 Leukocyte esterase Test strip Ql (U) Negative Negative [facility] Work Phone: Urine pHon 10-05-2021 pH (U) 6.0 [pH] [facility] Work Phone: Urine sediment bacteria coun t by microscopy (number/high power field)on 10-05-2021 Bacteria LM.HPF (Urine sed) [#/Area] 0 /[HPF] None Seen [facility] Work Phone: Urine specific gravity measu rementon 10-05-2021 Specific gravity (U) [Rel density] 1.020 [facility] Work Phone: Urobilinogen Auto test strip Ql (U)on 10-05-2021 Urobilinogen Ql (U) Normal mg/dl Normal [facility] Work Phone: Absolute lymphocyte counton 10-03-2021 Lymphocytes Auto (Unsp spec) [#/Vol] 1.64 10*3/uL 0.83-4.51 [facility] Work Phone: Basophil percentageon 2021 Basophils/100 WBC (Bld) 0.6 % 0-1 [facility] Work Phone: Chloride [Moles/Vol] 111 mmol/L 98-107 [facility] Work Phone: Eosinophils/100 WBC (Bld) 1.5 % 0-5 [facility] Work Phone: [phone] Glucose [Mass/Vol] 99 mg/dL 74-106 [facility] [place] Work Phone: Neutrophils (Bld) [#/Vol] 4.5 10*3/uL 2.0-7.7 [facility] Work Phone: [phone] Neutrophils/100 WBC (Bld) 66.6 % 47-70 [facility] Work Phone: Potassium [Moles/Vol] 4.0 mmol/L 3.5-5.1 [facility] Work Phone: Sodium [Moles/Vol] 139 mmol/L 136-145 [facility] [place] Work Phone: WBC (Bld) [#/Vol] 6.7 10*3/uL 4.4-11.0 [facility] [place] Work Phone: Blood erythrocytes count (nu mber/volume)on 10-03-2021 RBC (Bld) [#/Vol] 4.12 10*6/uL 4.2-5.4 [facility] Work Phone: Blood hemoglobin measurement (mass/volume)on 10-03-2021 Hemoglobin (Bld) [Mass/Vol] 12.5 g/dL 12.0-15.0 [facility] Work Phone: Blood lymphocytes/100 leukoc yteson 10-03-2021 Lymphocytes/100 WBC (Bld) 24.4 % 19-41 [facility] Work Phone: Blood monocytes/100 leukocyt eson 10-03-2021 Monocytes/100 WBC (Bld) 6.5 % 0-10 [facility] Work Phone: Blood platelet mean volumeon 10-03-2021 Platelet mean volume (Bld) [Entitic vol] 9.7 fL 6.2-12.0 [facility] Work Phone: Determination of erythrocyte mean corpuscular volume (MCV)on 10-03-2021 MCV (RBC) [Entitic vol] 93.0 fL 81-99 [facility] Work Phone: Hematocrit Auto (Bld) [Volum e fraction]on 10-03-2021 Hematocrit (Bld) [Volume fraction] 38.3 % 37-47 [facility] Work Phone: Laboratory - Chemistry and C hemistry - challengeon 10-03-2021 CO2 [Moles/Vol] 26.0 mmol/L 21.0-32.0 [facility] Work Phone: Urea nitrogen/Creatinine [Mass ratio] 26.5 mg/mg 10-20 [facility] Work Phone: Laboratory - Hematology and Cell countson 10-03-2021 Erythrocyte distribution width (RBC) [Entitic vol] 46.9 fL 35.1-43.9 [facility] Work Phone: Erythrocyte distribution width (RBC) [Ratio] 13.7 % 11.6-14.6 [facility] Work Phone: Immature granulocytes/100 WBC (Bld) 0.400 % 0.0-0.9 [facility] Work Phone: Comment on above: IG% - Immature Granu locytes (promyelocytes, myelocytes and metamyelocytes) > 1% indicates that a LEFT SHIFT is Present. MCH (RBC) [Entitic mass] 30.3 pg 27.0-32.0 [facility] Work Phone: Nucleated RBC/100 WBC (Bld) [Ratio] 0 % 0-5 [facility] Work Phone: MCHC Auto (RBC) [Mass/Vol]on 10-03-2021 MCHC (RBC) [Mass/Vol] 32.6 g/dL 32-36 [facility] Work Phone: No Panel Informationon 10-03 Estimated Creatinine Clearance Calc 41.32 ml/min [facility] Work Phone: Estimated GFR (MDRD) Amer 107 mL/min >60 [facility] Work Phone: Comment on above: GFR Calc Estimated GFR (MDRD) Non-Af Amer 89 mL/min >60 [facility] Work Phone: Comment on above: Non- GFR Calc Platelets bldon 10-03-2021 Platelets (Bld) [#/Vol] 197 10*3/uL 150-450 [facility] Work Phone: Serum or plasma calcium osiris urement (mass/volume)on 10-03-2021 Calcium [Mass/Vol] 8.4 mg/dL 8.5-10.1 [facility] [place] Work Phone: Serum or plasma creatinine m easurement (mass/volume)on 10-03-2021 Creatinine [Mass/Vol] 0.68 mg/dL 0.55-1.02 [facility] Work Phone: Comment on above: The validity of the calculated GFR & GFRAA in patients over 70 years has not been determined. Clinical correlation is essential. Serum or plasma urea nitroge n measurement (mass/volume)on 10-03-2021 Urea nitrogen [Mass/Vol] 18 mg/dL 7-18 [facility] Work Phone: Thin prep Papanicolaou smear with manual screeningon 10-03-2021 Thin prep Papanicolaou smear with manual screening 2 5-15 [facility] Work Phone: Basophil percentageon 2021 Bilirubin [Mass/Vol] 0.40 mg/dL 0.20-1.00 [facility] Work Phone: Comment on above: For patients on eltr ombopag therapy, use of Dimension [place] TBIL is not recommended. Protein [Mass/Vol] 5.9 g/dL 6.4-8.2 [facility] [place] Work Phone: Laboratory - Chemistry and C hemistry - challengeon 09-21-2021 ALP [Catalytic activity/Vol] 112 U/L 45-117 [facility] Work Phone: ALT [Catalytic activity/Vol] 18 U/L 13-56 [facility] Work Phone: Globulin (S) [Mass/Vol] 3.3 g/dL 2.2-4.2 [facility] Work Phone: Serum or plasma albumin osirsi urement (mass/volume)on 09-21-2021 Albumin [Mass/Vol] 2.6 g/dL 3.2-5.0 [facility] [place] Work Phone: Serum or plasma albumin/glob ulin mass ratioon 09-21-2021 Albumin/Globulin [Mass ratio] 0.8 {ratio} 0.9-2.4 [facility] Work Phone: Thin prep Papanicolaou smear with manual screeningon 09-21-2021 Thin prep Papanicolaou smear with manual screening 14 U/L 15-37 [facility] Work Phone: Direct bilirubinon 2 Bilirubin.direct [Mass/Vol] 0.13 mg/dL 0.00-0.30 [facility] Work Phone: No Panel Informationon 09-19 SARS-CoV-2 Antigen (Rapid) SARS-CoV-2 (COVID 19) [facility] Work Phone: Basophil percentageon 2021 Basophil percentage 0 SEEN /hpf [facility] Work Phone: Bilirubin Test strip Ql (U)o n 09-18-2021 Bilirubin Ql (U) Negative Negative [facility] Work Phone: Culture, urineon 09-18-2021 Bacteria identified Cx Nom (U) Lactobacillus gasseri [facility] Work Phone: Ketones Test strip Ql (U)on 09-18-2021 Ketones Ql (U) 5 mg/dl Negative [facility] Work Phone: Mucus LM Ql (Urine sed)on Mucus Ql (Urine sed) 0 SEEN /hpf [facility] Work Phone: Nitrite Test strip Ql (U)on 09-18-2021 Nitrite Ql (U) Negative Negative [facility] Work Phone: Protein Test strip Ql (U)on 09-18-2021 Protein Ql (U) 30 mg/dl Negative [facility] Work Phone: Squamous epithelial cells de tection in urine sediment by light microscopyon 09-18-2021 Epithelial cells.squamous LM Ql (Urine sed) 0 SEEN /hpf [facility] Work Phone: Urine blood detectionon 02-0 RBC Ql (U) 10 /ul Negative [facility] Work Phone: RBC Ql (U) 0 SEEN /hpf [facility] Work Phone: Urine clarityon 09-18-2021 Clarity (U) Clear Clear [facility] Work Phone: Urine color determinationon 09-18-2021 Color (U) Yellow Yellow [facility] Work Phone: Urine glucose detectionon Glucose Ql (U) Normal mg/dl Normal [facility] Work Phone: Urine leukocyte esterase det ection by dipstickon 09-18-2021 Leukocyte esterase Test strip Ql (U) Negative Negative [facility] Work Phone: Urine pHon 09-18-2021 pH (U) 5.0 [pH] [facility] Work Phone: Urine sediment bacteria coun t by microscopy (number/high power field)on 09-18-2021 Bacteria LM.HPF (Urine sed) [#/Area] 1 /[HPF] None Seen [facility] Work Phone: Urine specific gravity measu rementon 09-18-2021 Specific gravity (U) [Rel density] 1.020 [facility] Work Phone: Urobilinogen Auto test strip Ql (U)on 09-18-2021 Urobilinogen Ql (U) Normal mg/dl Normal [facility] Work Phone: Absolute lymphocyte counton 09-04-2021 Lymphocytes Auto (Unsp spec) [#/Vol] 1.36 10*3/uL 0.83-4.51 [facility] Work Phone: Basophil percentageon 2021 Basophils/100 WBC (Bld) 0.2 % 0-1 [facility] Work Phone: Chloride [Moles/Vol] 105 mmol/L 98-107 [facility] Work Phone: Eosinophils/100 WBC (Bld) 0.3 % 0-5 [facility] Work Phone: Glucose [Mass/Vol] 108 mg/dL 74-106 [facility] [place] Work Phone: Comment on above: Fasting Glucose resu lt from 100 to 125 mg/dL suggests IMPAIRED HOMEOSTASIS per A.D.A. criteria. Neutrophils (Bld) [#/Vol] 7.0 10*3/uL 2.0-7.7 [facility] Work Phone: Neutrophils/100 WBC (Bld) 78.7 % 47-70 [facility] Work Phone: Potassium [Moles/Vol] 3.7 mmol/L 3.5-5.1 [facility] Work Phone: Sodium [Moles/Vol] 137 mmol/L 136-145 [facility] [place] Work Phone: WBC (Bld) [#/Vol] 8.9 10*3/uL 4.4-11.0 [facility] [place] Work Phone: Blood erythrocytes count (nu mber/volume)on 09-04-2021 RBC (Bld) [#/Vol] 4.17 10*6/uL 4.2-5.4 [facility] Work Phone: Blood hemoglobin measurement (mass/volume)on 09-04-2021 Hemoglobin (Bld) [Mass/Vol] 12.8 g/dL 12.0-15.0 [facility] Work Phone: Blood lymphocytes/100 leukoc yteson 09-04-2021 Lymphocytes/100 WBC (Bld) 15.2 % 19-41 [facility] Work Phone: Blood monocytes/100 leukocyt eson 09-04-2021 Monocytes/100 WBC (Bld) 5.3 % 0-10 [facility] Work Phone: Blood platelet mean volumeon 09-04-2021 Platelet mean volume (Bld) [Entitic vol] 9.9 fL 6.2-12.0 [facility] Work Phone: Determination of erythrocyte mean corpuscular volume (MCV)on 09-04-2021 MCV (RBC) [Entitic vol] 90.9 fL 81-99 [facility] Work Phone: Hematocrit Auto (Bld) [Volum e fraction]on 09-04-2021 Hematocrit (Bld) [Volume fraction] 37.9 % 37-47 [facility] Work Phone: Laboratory - Chemistry and C hemistry - challengeon 09-04-2021 CO2 [Moles/Vol] 26.0 mmol/L 21.0-32.0 [facility] Work Phone: Urea nitrogen/Creatinine [Mass ratio] 33.7 mg/mg 10-20 [facility] Work Phone: Laboratory - Hematology and Cell countson 09-04-2021 Erythrocyte distribution width (RBC) [Entitic vol] 42.4 fL 35.1-43.9 [facility] Work Phone: Erythrocyte distribution width (RBC) [Ratio] 12.8 % 11.6-14.6 [facility] Work Phone: Immature granulocytes/100 WBC (Bld) 0.300 % 0.0-0.9 [facility] Work Phone: Comment on above: IG% - Immature Granu locytes (promyelocytes, myelocytes and metamyelocytes) > 1% indicates that a LEFT SHIFT is Present. MCH (RBC) [Entitic mass] 30.7 pg 27.0-32.0 [facility] Work Phone: Nucleated RBC/100 WBC (Bld) [Ratio] 0 % 0-5 [facility] Work Phone: MCHC Auto (RBC) [Mass/Vol]on 09-04-2021 MCHC (RBC) [Mass/Vol] 33.8 g/dL 32-36 [facility] Work Phone: No Panel Informationon 09-04 Estimated Creatinine Clearance Calc 44.29 ml/min [facility] Work Phone: Estimated GFR (MDRD) Amer 126 mL/min >60 [facility] Work Phone: Comment on above: GFR Calc Estimated GFR (MDRD) Non-Af Amer 104 mL/min >60 [facility] Work Phone: Comment on above: Non- GFR Calc Platelets bldon 09-04-2021 Platelets (Bld) [#/Vol] 181 10*3/uL 150-450 [facility] Work Phone: Serum or plasma calcium osiris urement (mass/volume)on 09-04-2021 Calcium [Mass/Vol] 8.1 mg/dL 8.5-10.1 [facility] [place] Work Phone: Serum or plasma creatinine m easurement (mass/volume)on 09-04-2021 Creatinine [Mass/Vol] 0.59 mg/dL 0.55-1.02 [facility] Work Phone: Comment on above: The validity of the calculated GFR & GFRAA in patients over 70 years has not been determined. Clinical correlation is essential. Serum or plasma urea nitroge n measurement (mass/volume)on 09-04-2021 Urea nitrogen [Mass/Vol] 20 mg/dL -18 [facility] Work Phone: Thin prep Papanicolaou smear with manual screeningon 09-04-2021 Thin prep Papanicolaou smear with manual screening 6 5-15 [facility] Work Phone: Laboratory - Chemistry and C hemistry - challengeon 09-03-2021 Magnesium [Mass/Vol] 2.0 mg/dL 1.6-2.6 [facility] Work Phone: No Panel Informationon 09-03 SARS-CoV-2 Antigen (Rapid) [facility] Work Phone: Bilirubin Test strip Ql (U)o n 09-02-2021 Bilirubin Ql (U) Negative Negative [facility] Work Phone: Culture, urineon 09-02-2021 Bacteria identified Cx Nom (U) Mixed Gram Pos & Gram Neg Org [facility] Work Phone: INR in Blood by Coagulation assayon 09-02-2021 INR Coag (Bld) [Relative time] 1.1 {INR} [facility] Work Phone: Ketones Test strip Ql (U)on 09-02-2021 Ketones Ql (U) Negative Negative [facility] Work Phone: Laboratory - Coagulationon 0 09-02-2021 aPTT Coag (Bld) [Time] 25.9 s 24.1-36.2 [facility] Work Phone: PT Coag (PPP) [Time] 14.0 s 11.7-14.9 [facility] Work Phone: Nitrite Test strip Ql (U)on 09-02-2021 Nitrite Ql (U) Negative Negative [facility] Work Phone: Protein Test strip Ql (U)on 09-02-2021 Protein Ql (U) 100 mg/dl Negative [facility] Work Phone: Urine blood detectionon 08-18 RBC Ql (U) 150 /ul Negative [facility] Work Phone: Urine clarityon 09-02-2021 Clarity (U) Turbid Clear [facility] Work Phone: Urine color determinationon 09-02-2021 Color (U) Yellow Yellow [facility] Work Phone: Urine glucose detectionon Glucose Ql (U) Normal mg/dl Normal [facility] Work Phone: Urine leukocyte esterase det ection by dipstickon 09-02-2021 Leukocyte esterase Test strip Ql (U) 500 /ul Negative [facility] Work Phone: Urine pHon 09-02-2021 pH (U) 5.0 [pH] [facility] Work Phone: Urine specific gravity measu rementon 09-02-2021 Specific gravity (U) [Rel density] 1.025 [facility] Work Phone: Urobilinogen Auto test strip Ql (U)on 09-02-2021 Urobilinogen Ql (U) Normal mg/dl Normal [facility] Work Phone: Culture, urine Bacteria identified Cx Nom (U) Presumptive E. coli [facility] Work Phone: VISUAL FIELD 24-2 OU (BOTH E YES) [facility] Vital Signs Date Time Vital Sign Value Performing Clinician Facility 02-03-2025 08:15-0400 Body temperature 97.3 [degF] Dr. Chema Perry MD Work Phone: [facility] 02-03-2025 08:15-0400 Diastolic blood pressure 62 mm[Hg] Dr. Chema Perry MD Work Phone: [facility] 02-03-2025 08:15-0400 Heart rate 77 /min Dr. Chema Perry MD Work Phone: [facility] 02-03-2025 08:15-0400 Respiratory rate 16 /min Dr. Chema Perry MD Work Phone: [facility] 02-03-2025 08:15-0400 SaO2% (BldA) [Mass fraction] 98 % Dr. Chema Perry MD Work Phone: [facility] 02-03-2025 08:15-0400 Systolic blood pressure 101 mm[Hg] Dr. Chema Perry MD Work Phone: [facility] 02-03-2025 04:07-0400 Body height 139.[address] Chema Perry MD Work Phone: [facility] 02-03-2025 04:07-0400 Body mass index (BMI) [Ratio] 28.8 kg/m2 Dr. Chema Perry MD Work Phone: [facility] 02-03-2025 04:07-0400 Body weight 56.[address] Chema Perry MD Work Phone: [facility] 12-23-2024 14:30-0400 Diastolic blood pressure 56 mm[Hg] Laisha Lizarraga APRN.[employer] Work Phone: [facility] 12-23-2024 14:30-0400 Heart rate 70 /min Laisha Lizarraga APRN.[employer] Work Phone: [facility] 12-23-2024 14:30-0400 Systolic blood pressure 121 mm[Hg] Laisha Lizarraga APRN.[employer] Work Phone: [facility] 12-20-2024 13:53-0400 Body mass index (BMI) [Ratio] 23.24 kg/m2 Sourav Marcial MD Work Phone: [facility] 12-20-2024 13:53-0400 Body weight 45.36 kg Sourav Marcial MD Work Phone: [facility] 12-20-2024 13:53-0400 Diastolic blood pressure 56 mm[Hg] Sourav Marcial MD Work Phone: [facility] 12-20-2024 13:53-0400 Heart rate 72 /min Sourav Marcial MD Work Phone: [facility] 12-20-2024 13:53-0400 Systolic blood pressure 108 mm[Hg] Sourav Marcial MD Work Phone: [facility] 12-19-2024 14:46-0400 Body mass index (BMI) [Ratio] 23.57 kg/m2 Krislyn Aberegg PA Work Phone: [facility] 12-19-2024 14:46-0400 Body temperature 98.8 [degF] Krislyn Aberegg PA Work Phone: [facility] 12-19-2024 14:46-0400 Body weight 46 kg Krislyn Aberegg PA Work Phone: [facility] 12-19-2024 14:46-0400 Diastolic blood pressure 71 mm[Hg] Krislyn Aberegg PA Work Phone: [facility] 12-19-2024 14:46-0400 Heart rate 71 /min Krislyn Aberegg PA Work Phone: [facility] 12-19-2024 14:46-0400 Respiratory rate 16 /min Krislyn Aberegg PA Work Phone: [facility] 12-19-2024 14:46-0400 SaO2% (BldA) [Mass fraction] 94 % Krislyn Aberegg PA Work Phone: [facility] 12-19-2024 14:46-0400 Systolic blood pressure 120 mm[Hg] Krislyn Aberegg PA Work Phone: [facility] 12-03-2024 11:29-0400 Body height 139.7 cm Anila De Paz MD Work Phone: [facility] 12-03-2024 11:29-0400 Body mass index (BMI) [Ratio] 24.03 kg/m2 Anila De Paz MD Work Phone: [facility] 12-03-2024 11:29-0400 Body weight 46.9 kg Anila De Paz MD Work Phone: [facility] 12-03-2024 11:29-0400 Diastolic blood pressure 48 mm[Hg] Anila De Paz MD Work Phone: [facility] 12-03-2024 11:29-0400 Heart rate 60 /min Anila De Paz MD Work Phone: [facility] 12-03-2024 11:29-0400 Systolic blood pressure 106 mm[Hg] Anila De Paz MD Work Phone: [facility] 11-03-2024 15:32-0400 Body mass index (BMI) [Ratio] 24.29 kg/m2 Denice Queener PA-C Work Phone: [facility] 11-03-2024 15:32-0400 Body weight 47.4 kg Denice Houstoner PA-C Work Phone: [facility] 11-03-2024 15:32-0400 Diastolic blood pressure 73 mm[Hg] Denice Houstoner PA-C Work Phone: [facility] 11-03-2024 15:32-0400 Heart rate 68 /min Denice Houstoner PA-C Work Phone: [facility] 11-03-2024 15:32-0400 SaO2% (BldA) [Mass fraction] 90 % Denice Houstoner PA-C Work Phone: [facility] 11-03-2024 15:32-0400 Systolic blood pressure 125 mm[Hg] Denice Houstoner PA-C Work Phone: [facility] 10-29-2024 13:27-0400 Body height 139.7 cm Anila De Paz MD Work Phone: [facility] 10-29-2024 13:27-0400 Body mass index (BMI) [Ratio] 24.29 kg/m2 Anila De Paz MD Work Phone: [facility] 10-29-2024 13:27-0400 Body weight 47.4 kg Anila De Paz MD Work Phone: [facility] 10-29-2024 13:27-0400 Diastolic blood pressure 51 mm[Hg] Anila De Paz MD Work Phone: [facility] 10-29-2024 13:27-0400 Heart rate 77 /min Anila De Paz MD Work Phone: [facility] 10-29-2024 13:27-0400 Systolic blood pressure 93 mm[Hg] Anila De Paz MD Work Phone: [facility] 10-22-2024 08:26-0500 Body mass index (BMI) [Ratio] 23.9 kg/m2 Dr. Chema Perry MD Work Phone: [facility] 10-22-2024 08:26-0500 Body temperature 97.4 [degF] Dr. Chema Perry MD Work Phone: [facility] 10-22-2024 08:26-0500 Body weight 46.[address] Chema Perry MD Work Phone: [facility] 10-22-2024 08:26-0500 Diastolic blood pressure 79 mm[Hg] Dr. Chema Perry MD Work Phone: [facility] 10-22-2024 08:26-0500 Heart rate 72 /min Dr. Chema Perry MD Work Phone: [facility] 10-22-2024 08:26-0500 Respiratory rate 18 /min Dr. Chema Perry MD Work Phone: [facility] 10-22-2024 08:26-0500 SaO2% (BldA) [Mass fraction] 93 % Dr. Chema Perry MD Work Phone: [facility] 10-22-2024 08:26-0500 Systolic blood pressure 125 mm[Hg] Dr. Chema Perry MD Work Phone: [facility] 10-14-2024 13:18-0500 Body height 139.[address] Chema Perry MD Work Phone: [facility] 10-14-2024 13:18-0500 Body mass index (BMI) [Ratio] 24.4 kg/m2 Dr. Chema Perry MD Work Phone: [facility] 10-14-2024 13:18-0500 Body temperature 98.4 [degF] Dr. Chema Perry MD Work Phone: [facility] 10-14-2024 13:18-0500 Body weight 47.[address] Chema Perry MD Work Phone: [facility] 10-14-2024 13:18-0500 Diastolic blood pressure 79 mm[Hg] Dr. Chema Perry MD Work Phone: [facility] 10-14-2024 13:18-0500 Heart rate 78 /min Dr. Chema Peryr MD Work Phone: [facility] 10-14-2024 13:18-0500 Respiratory rate 16 /min Dr. Chema Perry MD Work Phone: [facility] 10-14-2024 13:18-0500 SaO2% (BldA) [Mass fraction] 90 % Dr. Chema Perry MD Work Phone: [facility] 10-14-2024 13:18-0500 Systolic blood pressure 113 mm[Hg] Dr. Chema Perry MD Work Phone: [facility] 10-13-2024 13:08-0500 Body height 139.7 cm Laisha Lizarraga APRN.[employer] Work Phone: [facility] 10-13-2024 13:08-0500 Body mass index (BMI) [Ratio] 23.47 kg/m2 Laisha Lizarraga APRN.[employer] Work Phone: [facility] 10-13-2024 13:08-0500 Body weight 45.81 kg Laisha Lizarraga APRN.[employer] Work Phone: [facility] 10-13-2024 13:08-0500 Diastolic blood pressure 43 mm[Hg] Laisha Lizarraga APRN.[employer] Work Phone: [facility] 10-13-2024 13:08-0500 Heart rate 73 /min Laisha Lizarraga APRN.[employer] Work Phone: [facility] 10-13-2024 13:08-0500 Systolic blood pressure 81 mm[Hg] Laisha Lizarraga APRN.[employer] Work Phone: [facility] 10-08-2024 10:12-0500 Body height 142.2 cm Anila De Paz MD Work Phone: [facility] 10-08-2024 10:12-0500 Body mass index (BMI) [Ratio] 23.19 kg/m2 Anila De Paz MD Work Phone: [facility] 10-08-2024 10:12-0500 Body temperature 98.2 [degF] Anila De Paz MD Work Phone: [facility] 10-08-2024 10:12-0500 Body weight 46.9 kg Anila De Paz MD Work Phone: [facility] 10-08-2024 10:12-0500 Diastolic blood pressure 64 mm[Hg] Anila De Paz MD Work Phone: [facility] 10-08-2024 10:12-0500 Heart rate 68 /min Anila De Paz MD Work Phone: [facility] 10-08-2024 10:12-0500 Systolic blood pressure 137 mm[Hg] Anila De Paz MD Work Phone: [facility] 09-18-2024 10:18-0500 Body temperature 97.7 [degF] Dr. Chema Perry MD Work Phone: [facility] 09-18-2024 10:18-0500 Diastolic blood pressure 74 mm[Hg] Dr. Chema Perry MD Work Phone: [facility] 09-18-2024 10:18-0500 Heart rate 78 /min Dr. Chema Perry MD Work Phone: [facility] 09-18-2024 10:18-0500 Respiratory rate 18 /min Dr. Chema Perry MD Work Phone: [facility] 09-18-2024 10:18-0500 SaO2% (BldA) [Mass fraction] 98 % Dr. Chema Perry MD Work Phone: [facility] 09-18-2024 10:18-0500 Systolic blood pressure 154 mm[Hg] Dr. Chema ePrry MD Work Phone: [facility] 09-18-2024 08:38-0500 Body mass index (BMI) [Ratio] 25.7 kg/m2 Dr. Chema Perry MD Work Phone: [facility] 09-18-2024 08:38-0500 Body weight 50.[address] Chema Perry MD Work Phone: [facility] 09-14-2024 13:49-0500 Body height 139.7 cm Pacc 1 Work Phone: [facility] 09-14-2024 13:49-0500 Body mass index (BMI) [Ratio] 24.5 kg/m2 Pacc 1 Work Phone: [facility] 09-14-2024 13:49-0500 Body temperature 98.29 [degF] Pacc 1 Work Phone: [facility] 09-14-2024 13:49-0500 Body weight 47.81 kg Pacc 1 Work Phone: [facility] 09-14-2024 13:49-0500 Diastolic blood pressure 64 mm[Hg] Pacc 1 Work Phone: [facility] 09-14-2024 13:49-0500 Heart rate 71 /min Pacc 1 Work Phone: [facility] 09-14-2024 13:49-0500 Respiratory rate 12 /min Pacc 1 Work Phone: [facility] 09-14-2024 13:49-0500 SaO2% (BldA) [Mass fraction] 96 % Pacc 1 Work Phone: [facility] 09-14-2024 13:49-0500 Systolic blood pressure 124 mm[Hg] Pacc 1 Work Phone: [facility] 09-13-2024 15:50-0500 Diastolic blood pressure 74 mm[Hg] Alisa Haile MD Work Phone: [facility] 09-13-2024 15:50-0500 Heart rate 58 /min Alisa Haile MD Work Phone: [facility] 09-13-2024 15:50-0500 Respiratory rate 16 /min Alisa Haile MD Work Phone: [facility] 09-13-2024 15:50-0500 SaO2% (BldA) [Mass fraction] 96 % Alisa Haile MD Work Phone: [facility] 09-13-2024 15:50-0500 Systolic blood pressure 159 mm[Hg] Alisa Haile MD Work Phone: [facility] 09-13-2024 14:20-0500 Body temperature 97.9 [degF] Alisa Haile MD Work Phone: [facility] 09-03-2024 14:23-0500 Body height 142.2 cm Anila De Paz MD Work Phone: [facility] 09-03-2024 14:23-0500 Body mass index (BMI) [Ratio] 22.95 kg/m2 Anila De Paz MD Work Phone: [facility] 09-03-2024 14:23-0500 Body weight 46.4 kg Anila De Paz MD Work Phone: [facility] 09-03-2024 14:23-0500 Diastolic blood pressure 57 mm[Hg] Anila De Paz MD Work Phone: [facility] 09-03-2024 14:23-0500 Heart rate 72 /min Anila De Paz MD Work Phone: [facility] 09-03-2024 14:23-0500 Systolic blood pressure 108 mm[Hg] Anila De Paz MD Work Phone: [facility] 08-06-2024 09:50-0500 Body height 142.2 cm Denice Jacobs PA-C Work Phone: [facility] 08-06-2024 09:50-0500 Body mass index (BMI) [Ratio] 22.69 kg/m2 Denice Jacobs PA-C Work Phone: [facility] 08-06-2024 09:50-0500 Body weight 45.9 kg Denice Jacobs PA-C Work Phone: [facility] 08-06-2024 09:50-0500 Diastolic blood pressure 63 mm[Hg] Denice Jacobs PA-C Work Phone: [facility] 08-06-2024 09:50-0500 Heart rate 79 /min Denice Jacobs PA-C Work Phone: [facility] 08-06-2024 09:50-0500 SaO2% (BldA) [Mass fraction] 94 % Denice Jacobs PA-C Work Phone: [facility] 08-06-2024 09:50-0500 Systolic blood pressure 116 mm[Hg] Denice Jacobs PA-C Work Phone: [facility] 08-03-2024 15:36-0500 Diastolic blood pressure 74 mm[Hg] Sourav Marcial MD Work Phone: [facility] 08-03-2024 15:36-0500 Heart rate 75 /min Sourav Marcial MD Work Phone: [facility] 08-03-2024 15:36-0500 Systolic blood pressure 148 mm[Hg] Sourav Marcial MD Work Phone: [facility] 07-21-2024 17:24-0500 Body temperature 96.8 [degF] Eliazar Brown MD Work Phone: [facility] 07-21-2024 17:24-0500 Diastolic blood pressure 69 mm[Hg] Eliazar Brown MD Work Phone: [facility] 07-21-2024 17:24-0500 Heart rate 73 /min Eliazar Brown MD Work Phone: [facility] 07-21-2024 17:24-0500 Respiratory rate 16 /min Eliazar Brown MD Work Phone: [facility] 07-21-2024 17:24-0500 SaO2% (BldA) [Mass fraction] 92 % Eliazar Brown MD Work Phone: [facility] 07-21-2024 17:24-0500 Systolic blood pressure 132 mm[Hg] Eliazar Brown MD Work Phone: [facility] 07-21-2024 16:35-0500 Body height 142.2 cm Eliazar Brown MD Work Phone: [facility] 07-21-2024 16:35-0500 Body mass index (BMI) [Ratio] 21.97 kg/m2 Eliazar Brown MD Work Phone: [facility] 07-21-2024 16:35-0500 Body weight 44.45 kg Eliazar Brown MD Work Phone: [facility] 07-16-2024 14:35-0500 Body mass index (BMI) [Ratio] 19.79 kg/m2 Pacc 1 Work Phone: [facility] 07-16-2024 14:35-0500 Body weight 44.45 kg Pacc 1 Work Phone: [facility] 07-16-2024 14:35-0500 Diastolic blood pressure 81 mm[Hg] Pacc 1 Work Phone: [facility] 07-16-2024 14:35-0500 Heart rate 62 /min Pacc 1 Work Phone: [facility] 07-16-2024 14:35-0500 SaO2% (BldA) [Mass fraction] 96 % Pacc 1 Work Phone: [facility] 07-16-2024 14:35-0500 Systolic blood pressure 161 mm[Hg] Pacc 1 Work Phone: [facility] 07-07-2024 11:48-0500 Body mass index (BMI) [Ratio] 22.6 kg/m2 Dr. Chema Perry MD Work Phone: [facility] 07-07-2024 11:48-0500 Body temperature 98.6 [degF] Dr. Chema Perry MD Work Phone: [facility] 07-07-2024 11:48-0500 Body weight 45.[address] Chema Perry MD Work Phone: [facility] 07-07-2024 11:48-0500 Diastolic blood pressure 83 mm[Hg] Dr. Chema Perry MD Work Phone: [facility] 07-07-2024 11:48-0500 Heart rate 58 /min Dr. Chema Perry MD Work Phone: [facility] 07-07-2024 11:48-0500 Respiratory rate 16 /min Dr. Chema Perry MD Work Phone: [facility] 07-07-2024 11:48-0500 SaO2% (BldA) [Mass fraction] 92 % Dr. Chema Perry MD Work Phone: [facility] 07-07-2024 11:48-0500 Systolic blood pressure 160 mm[Hg] Dr. Chema Perry MD Work Phone: [facility] 07-01-2024 13:25-0500 Body height 149.9 cm Laisha Lizarraga APRN.[employer] Work Phone: [facility] 07-01-2024 13:25-0500 Body mass index (BMI) [Ratio] 19.87 kg/m2 Laisha Lizarraga APRN.[employer] Work Phone: [facility] 07-01-2024 13:25-0500 Body weight 44.63 kg Laisha Lizarraga APRN.[employer] Work Phone: [facility] 07-01-2024 13:25-0500 Diastolic blood pressure 64 mm[Hg] Laisha Lizarraga APRN.[employer] Work Phone: [facility] 07-01-2024 13:25-0500 Heart rate 80 /min Laisha Lizarraga DIGITAL RESEARCH ANALYST.[employer] Work Phone: [facility] 07-01-2024 13:25-0500 Systolic blood pressure 106 mm[Hg] Laisha Zia [employer] RESEARCH ANALYST.[employer] Work Phone: [facility] 06-18-2024 12:44-0400 Body height 149.9 cm Anila De Paz MD Work Phone: [facility] 06-18-2024 12:44-0400 Body mass index (BMI) [Ratio] 20.47 kg/m2 Anila De Paz MD Work Phone: [facility] 06-18-2024 12:44-0400 Body weight 46 kg Anila De Paz MD Work Phone: [facility] 06-18-2024 12:44-0400 Diastolic blood pressure 56 mm[Hg] Anila De Paz MD Work Phone: [facility] 06-18-2024 12:44-0400 Heart rate 68 /min Anila De Paz MD Work Phone: [facility] 06-18-2024 12:44-0400 Systolic blood pressure 111 mm[Hg] Anila De Paz MD Work Phone: [facility] 05-17-2024 15:07-0400 Body mass index (BMI) [Ratio] 21.17 kg/m2 Susan Squires MD Work Phone: [facility] 05-17-2024 15:07-0400 Body temperature 97.2 [degF] Susan Squires MD Work Phone: [facility] 05-17-2024 15:07-0400 Body weight 47.54 kg Susan Squires MD Work Phone: [facility] 05-17-2024 15:07-0400 Diastolic blood pressure 72 mm[Hg] Susan Squires MD Work Phone: [facility] 05-17-2024 15:07-0400 Heart rate 78 /min Susan Squires MD Work Phone: [facility] 05-17-2024 15:07-0400 SaO2% (BldA) [Mass fraction] 92 % Susan Squires MD Work Phone: [facility] 05-17-2024 15:07-0400 Systolic blood pressure 138 mm[Hg] Susan Squires MD Work Phone: [facility] 03-25-2024 13:38-0400 Body height 149.9 cm Laisha Lizarraga APRN.[employer] Work Phone: [facility] 03-25-2024 13:38-0400 Body mass index (BMI) [Ratio] 20.2 kg/m2 Laisha Lizarraga APRN.[employer] Work Phone: [facility] 03-25-2024 13:38-0400 Body weight 45.36 kg Laisha Lizarraga APRN.[employer] Work Phone: [facility] 03-25-2024 13:38-0400 Diastolic blood pressure 81 mm[Hg] Laihsa Lizarraga APRN.[employer] Work Phone: [facility] 03-25-2024 13:38-0400 Heart rate 68 /min Laisha Lizarraga APRN.[employer] Work Phone: [facility] 03-25-2024 13:38-0400 Systolic blood pressure 137 mm[Hg] Laisha Lizarraga APRN.[employer] Work Phone: [facility] 11-12-2023 14:58-0400 Body height 142.[address] Chema Perry Work Phone: [facility] 11-12-2023 14:58-0400 Body mass index (BMI) [Ratio] 22.4 kg/m2 Dr. Chema Perry Work Phone: [facility] 11-12-2023 14:58-0400 Body weight 45.[address] Chema Perry Work Phone: [facility] 11-12-2023 14:58-0400 Diastolic blood pressure 71 mm[Hg] Dr. Chema Perry Work Phone: [facility] 11-12-2023 14:58-0400 Heart rate 71 /min Dr. Chema Perry Work Phone: [facility] 11-12-2023 14:58-0400 Respiratory rate 18 /min Dr. Chema Perry Work Phone: [facility] 11-12-2023 14:58-0400 SaO2% (BldA) [Mass fraction] 97 % Dr. Chema Perry Work Phone: [facility] 11-12-2023 14:58-0400 Systolic blood pressure 114 mm[Hg] Dr. Chema Perry Work Phone: [facility] 10-16-2023 14:36-0500 Diastolic blood pressure 55 mm[Hg] Laisha Lizarraga APRN.[employer] Work Phone: [facility] 10-16-2023 14:36-0500 Heart rate 79 /min Laisha Lizarraga APRN.[employer] Work Phone: [facility] 10-16-2023 14:36-0500 Systolic blood pressure 107 mm[Hg] Laisha Lizarraga APRN.[employer] Work Phone: [facility] 10-08-2023 14:26-0500 Body height 142.[address] Chema Perry Work Phone: [facility] 10-08-2023 14:26-0500 Body mass index (BMI) [Ratio] 22.1 kg/m2 Dr. Chema Perry Work Phone: [facility] 10-08-2023 14:26-0500 Body temperature 97.8 [degF] Dr. Chema Perry Work Phone: [facility] 10-08-2023 14:26-0500 Body weight 44.[address] Chema Perry Work Phone: [facility] 10-08-2023 14:26-0500 Diastolic blood pressure 75 mm[Hg] Dr. Chema Perry Work Phone: [facility] 10-08-2023 14:26-0500 Heart rate 73 /min Dr. Chema Perry Work Phone: [facility] 10-08-2023 14:26-0500 Respiratory rate 16 /min Dr. Chema Perry Work Phone: [facility] 10-08-2023 14:26-0500 SaO2% (BldA) [Mass fraction] 96 % Dr. Chema Perry Work Phone: [facility] 10-08-2023 14:26-0500 Systolic blood pressure 127 mm[Hg] Dr. Chema Perry Work Phone: [facility] 09-24-2023 09:59-0500 Body mass index (BMI) [Ratio] 23.1 kg/m2 Dr. Chema Perry Work Phone: [facility] 09-24-2023 09:59-0500 Body temperature 97.3 [degF] Dr. Chema Perry Work Phone: [facility] 09-24-2023 09:59-0500 Body weight 46.[address] Chema Perry Work Phone: [facility] 09-24-2023 09:59-0500 Diastolic blood pressure 76 mm[Hg] Dr. Chema Perry Work Phone: [facility] 09-24-2023 09:59-0500 Heart rate 77 /min Dr. Chema Perry Work Phone: [facility] 09-24-2023 09:59-0500 Respiratory rate 16 /min Dr. Chema Perry Work Phone: [facility] 09-24-2023 09:59-0500 SaO2% (BldA) [Mass fraction] 93 % Dr. Chema Perry Work Phone: [facility] 09-24-2023 09:59-0500 Systolic blood pressure 126 mm[Hg] Dr. Chema Perry Work Phone: [facility] 08-13-2023 15:36-0500 Body mass index (BMI) [Ratio] 23.6 kg/m2 Dr. Chema Perry Work Phone: [facility] 08-13-2023 15:36-0500 Body temperature 96.4 [degF] Dr. Chema Perry Work Phone: [facility] 08-13-2023 15:36-0500 Body weight 47.[address] Chema Perry Work Phone: [facility] 08-13-2023 15:36-0500 Diastolic blood pressure 83 mm[Hg] Dr. Chema Perry Work Phone: [facility] 08-13-2023 15:36-0500 Heart rate 71 /min Dr. Chema Perry Work Phone: [facility] 08-13-2023 15:36-0500 Respiratory rate 16 /min Dr. Chema Perry Work Phone: [facility] 08-13-2023 15:36-0500 SaO2% (BldA) [Mass fraction] 90 % Dr. Chema Perry Work Phone: [facility] 08-13-2023 15:36-0500 Systolic blood pressure 127 mm[Hg] Dr. Chema Perry Work Phone: [facility] 06-16-2023 13:40-0400 Body weight 48.08 kg Laisha Lizarraga APRN.[employer] Work Phone: [facility] 06-16-2023 13:40-0400 Diastolic blood pressure 72 mm[Hg] Laisha Lizarraga APRN.CNP Work Phone: [facility] 06-16-2023 13:40-0400 Heart rate 81 /min Laisha Zia BOTELLO.[employer] Work Phone: [facility] 06-16-2023 13:40-0400 Systolic blood pressure 118 mm[Hg] Laisha Zia [employer] Work Phone: [facility] 05-15-2023 14:11-0400 Body height 142.[address] Chema Perry Work Phone: [facility] 05-12-2023 11:40-0400 Body mass index (BMI) [Ratio] 24.4 kg/m2 Dr. Chema Perry Work Phone: [facility] 05-12-2023 11:40-0400 Body weight 49.[address] Chema Perry Work Phone: [facility] 05-12-2023 11:40-0400 Diastolic blood pressure 72 mm[Hg] Dr. Chema Perry Work Phone: [facility] 05-12-2023 11:40-0400 Heart rate 73 /min Dr. Chema Perry Work Phone: [facility] 05-12-2023 11:40-0400 Respiratory rate 18 /min Dr. Chema Perry Work Phone: [facility] 05-12-2023 11:40-0400 SaO2% (BldA) [Mass fraction] 96 % Dr. Chema Perry Work Phone: [facility] 05-12-2023 11:40-0400 Systolic blood pressure 111 mm[Hg] Dr. Chema Perry Work Phone: [facility] 04-07-2023 13:32-0400 Body height 142.[address] Chema Perry Work Phone: [facility] 04-07-2023 13:32-0400 Body mass index (BMI) [Ratio] 23.2 kg/m2 Dr. Chema Perry Work Phone: [facility] 04-07-2023 13:32-0400 Body temperature 96.9 [degF] Dr. Chema Perry Work Phone: [facility] 04-07-2023 13:32-0400 Body weight 46.[address] Chema Perry Work Phone: [facility] 04-07-2023 13:32-0400 Diastolic blood pressure 88 mm[Hg] Dr. Chema Perry Work Phone: [facility] 04-07-2023 13:32-0400 Heart rate 79 /min Dr. Chema Perry Work Phone: [facility] 04-07-2023 13:32-0400 Respiratory rate 18 /min Dr. Chema Perry Work Phone: [facility] 04-07-2023 13:32-0400 SaO2% (BldA) [Mass fraction] 95 % Dr. Chema Perry Work Phone: [facility] 04-07-2023 13:32-0400 Systolic blood pressure 142 mm[Hg] Dr. Chema Perry Work Phone: [facility] 04-02-2023 04:28-0400 Body height 142.[address] Chema Perry Work Phone: [facility] 04-02-2023 04:28-0400 Body mass index (BMI) [Ratio] 21.2 kg/m2 Dr. Chema Perry Work Phone: [facility] 04-02-2023 04:28-0400 Body temperature 98.3 [degF] Dr. Chema Perry Work Phone: [facility] 04-02-2023 04:28-0400 Body weight 42.[address] Chema Perry Work Phone: [facility] 04-02-2023 04:28-0400 Diastolic blood pressure 98 mm[Hg] Dr. Chema Perry Work Phone: [facility] 04-02-2023 04:28-0400 Heart rate 79 /min Dr. Chema Perry Work Phone: [facility] 04-02-2023 04:28-0400 Respiratory rate 15 /min Dr. Chema Perry Work Phone: [facility] 04-02-2023 04:28-0400 SaO2% (BldA) [Mass fraction] 99 % Dr. Chema Perry Work Phone: [facility] 04-02-2023 04:28-0400 Systolic blood pressure 184 mm[Hg] Dr. Chema Perry Work Phone: [facility] 03-24-2023 11:37-0400 Body mass index (BMI) [Ratio] 25.1 kg/m2 Dr. Chema Perry Work Phone: [facility] 03-24-2023 11:37-0400 Body temperature 98.1 [degF] Dr. Chema Perry Work Phone: [facility] 03-24-2023 11:37-0400 Body weight 50.[address] Chema Perry Work Phone: [facility] 03-24-2023 11:37-0400 Diastolic blood pressure 78 mm[Hg] Dr. Chema Perry Work Phone: [facility] 03-24-2023 11:37-0400 Heart rate 74 /min Dr. Chema Perry Work Phone: [facility] 03-24-2023 11:37-0400 Respiratory rate 12 /min Dr. Chema Perry Work Phone: [facility] 03-24-2023 11:37-0400 SaO2% (BldA) [Mass fraction] 93 % Dr. Chema Perry Work Phone: [facility] 03-24-2023 11:37-0400 Systolic blood pressure 147 mm[Hg] Dr. Chema Perry Work Phone: [facility] 02-12-2023 14:09-0400 Body height 149.[address] Chema Perry Work Phone: [facility] 02-12-2023 14:09-0400 Body mass index (BMI) [Ratio] 22.1 kg/m2 Dr. Chema Perry Work Phone: [facility] 02-12-2023 14:09-0400 Body temperature 98.2 [degF] Dr. Chema Perry Work Phone: [facility] 02-12-2023 14:09-0400 Body weight 49.[address] Chema Perry Work Phone: [facility] 02-12-2023 14:09-0400 Diastolic blood pressure 82 mm[Hg] Dr. Chema Perry Work Phone: [facility] 02-12-2023 14:09-0400 Heart rate 82 /min Dr. Chema Perry Work Phone: [facility] 02-12-2023 14:09-0400 Respiratory rate 16 /min Dr. Chema Perry Work Phone: [facility] 02-12-2023 14:09-0400 SaO2% (BldA) [Mass fraction] 91 % Dr. Chema Perry Work Phone: [facility] 02-12-2023 14:09-0400 Systolic blood pressure 147 mm[Hg] Dr. Chema Perry Work Phone: [facility] 01-29-2023 15:38-0400 Body height 149.[address] Chema Perry Work Phone: [facility] 01-29-2023 15:38-0400 Body mass index (BMI) [Ratio] 23.1 kg/m2 Dr. Chema Perry Work Phone: [facility] 01-29-2023 15:38-0400 Body temperature 97.4 [degF] Dr. Chema Perry Work Phone: [facility] 01-29-2023 15:38-0400 Body weight 51.[address] Chema Perry Work Phone: [facility] 01-29-2023 15:38-0400 Diastolic blood pressure 82 mm[Hg] Dr. Chema Perry Work Phone: [facility] 01-29-2023 15:38-0400 Heart rate 78 /min Dr. Chema Perry Work Phone: [facility] 01-29-2023 15:38-0400 Respiratory rate 16 /min Dr. Chema Perry Work Phone: [facility] 01-29-2023 15:38-0400 SaO2% (BldA) [Mass fraction] 92 % Dr. Chema Perry Work Phone: [facility] 01-29-2023 15:38-0400 Systolic blood pressure 130 mm[Hg] Dr. Chema Perry Work Phone: [facility] 01-20-2023 09:09-0400 Body temperature 98 [degF] Dr. Chema Perry Work Phone: [facility] 01-20-2023 09:09-0400 Diastolic blood pressure 66 mm[Hg] Dr. Chema Perry Work Phone: [facility] 01-20-2023 09:09-0400 Heart rate 70 /min Dr. Chema Perry Work Phone: [facility] 01-20-2023 09:09-0400 Respiratory rate 16 /min Dr. Chema Perry Work Phone: [facility] 01-20-2023 09:09-0400 SaO2% (BldA) [Mass fraction] 94 % Dr. Chema Perry Work Phone: [facility] 01-20-2023 09:09-0400 Systolic blood pressure 108 mm[Hg] Dr. Chema Perry Work Phone: [facility] 01-15-2023 13:53-0400 Body height 149.[address] Chema Perry Work Phone: [facility] 01-15-2023 13:53-0400 Body mass index (BMI) [Ratio] 23.1 kg/m2 Dr. Chema Perry Work Phone: [facility] 01-15-2023 13:53-0400 Body temperature 97.4 [degF] Dr. Chema Perry Work Phone: [facility] 01-15-2023 13:53-0400 Body weight 51.[address] Chema Perry Work Phone: [facility] 01-15-2023 13:53-0400 Diastolic blood pressure 74 mm[Hg] Dr. Chema Perry Work Phone: [facility] 01-15-2023 13:53-0400 Heart rate 90 /min Dr. Chema Perry Work Phone: [facility] 01-15-2023 13:53-0400 Respiratory rate 17 /min Dr. Chema Perry Work Phone: [facility] 01-15-2023 13:53-0400 SaO2% (BldA) [Mass fraction] 97 % Dr. Chema Perry Work Phone: [facility] 01-15-2023 13:53-0400 Systolic blood pressure 130 mm[Hg] Dr. Chema Perry Work Phone: [facility] 01-08-2023 11:45-0400 Body mass index (BMI) [Ratio] 22.6 kg/m2 Dr. Chema Perry Work Phone: [facility] 01-08-2023 11:45-0400 Body weight 50.[address] Chema Perry Work Phone: [facility] 01-08-2023 11:45-0400 Diastolic blood pressure 71 mm[Hg] Dr. Chema Perry Work Phone: [facility] 01-08-2023 11:45-0400 Heart rate 72 /min Dr. Chema Perry Work Phone: [facility] 01-08-2023 11:45-0400 Respiratory rate 16 /min Dr. Chema Perry Work Phone: [facility] 01-08-2023 11:45-0400 Systolic blood pressure 110 mm[Hg] Dr. Chema Perry Work Phone: [facility] 01-02-2023 14:30-0400 Body mass index (BMI) [Ratio] 22.8 kg/m2 Dr. Chema Perry Work Phone: [facility] 01-02-2023 14:30-0400 Body temperature 97.8 [degF] Dr. Chema Perry Work Phone: [facility] 01-02-2023 14:30-0400 Body weight 51.[address] Chema Perry Work Phone: [facility] 01-02-2023 14:30-0400 Diastolic blood pressure 74 mm[Hg] Dr. Chema Perry Work Phone: [facility] 01-02-2023 14:30-0400 Heart rate 82 /min Dr. Chema Perry Work Phone: [facility] 01-02-2023 14:30-0400 Respiratory rate 16 /min Dr. Chema Perry Work Phone: [facility] 01-02-2023 14:30-0400 SaO2% (BldA) [Mass fraction] 94 % Dr. Chema Perry Work Phone: [facility] 01-02-2023 14:30-0400 Systolic blood pressure 128 mm[Hg] Dr. Chema Perry Work Phone: [facility] 01-01-2023 11:15-0400 Body mass index (BMI) [Ratio] 22.2 kg/m2 Dr. Chmea Perry Work Phone: [facility] 01-01-2023 11:15-0400 Body temperature 97.6 [degF] Dr. Chema Perry Work Phone: [facility] 01-01-2023 11:15-0400 Body weight 49.[address] Chema Perry Work Phone: [facility] 01-01-2023 11:15-0400 Diastolic blood pressure 77 mm[Hg] Dr. Chema Perry Work Phone: [facility] 01-01-2023 11:15-0400 Heart rate 80 /min Dr. Chema Perry Work Phone: [facility] 01-01-2023 11:15-0400 Respiratory rate 18 /min Dr. Chema Perry Work Phone: [facility] 01-01-2023 11:15-0400 SaO2% (BldA) [Mass fraction] 93 % Dr. Chema Perry Work Phone: [facility] 01-01-2023 11:15-0400 Systolic blood pressure 124 mm[Hg] Dr. Chema Perry Work Phone: [facility] 12-25-2022 14:04-0400 Body temperature 98.3 [degF] Dr. Chema Perry Work Phone: [facility] 12-25-2022 14:04-0400 Diastolic blood pressure 72 mm[Hg] Dr. Chema Perry Work Phone: [facility] 12-25-2022 14:04-0400 Heart rate 74 /min Dr. Chema Perry Work Phone: [facility] 12-25-2022 14:04-0400 Respiratory rate 17 /min Dr. Chema Perry Work Phone: [facility] 12-25-2022 14:04-0400 SaO2% (BldA) [Mass fraction] 91 % Dr. Chema Perry Work Phone: [facility] 12-25-2022 14:04-0400 Systolic blood pressure 116 mm[Hg] Dr. Chema Perry Work Phone: [facility] 11-23-2022 11:14-0400 Body height 149.[address] Chema Perry Work Phone: [facility] 11-23-2022 11:14-0400 Body mass index (BMI) [Ratio] 23 kg/m2 Dr. Chema Perry Work Phone: [facility] 11-23-2022 11:14-0400 Body temperature 97.8 [degF] Dr. Chema Perry Work Phone: [facility] 11-23-2022 11:14-0400 Body weight 51.[address] Chema Perry Work Phone: [facility] 11-13-2022 12:59-0400 Body weight 49.9 kg Laisha Lizarraga APRN.[employer] Work Phone: [facility] 11-13-2022 12:59-0400 Diastolic blood pressure 69 mm[Hg] Laisha Lizarraga APRN.[employer] Work Phone: [facility] 11-13-2022 12:59-0400 Heart rate 77 /min Laisha Lizarraga APRN.[employer] Work Phone: [facility] 11-13-2022 12:59-0400 Systolic blood pressure 113 mm[Hg] Laisha Lizarraga APRN.[employer] Work Phone: [facility] 10-23-2022 13:11-0500 Body temperature 98.5 [degF] Dr. Chema Perry Work Phone: [facility] 10-23-2022 13:11-0500 Diastolic blood pressure 78 mm[Hg] Dr. Chema Perry Work Phone: [facility] 10-23-2022 13:11-0500 Heart rate 76 /min Dr. Chema Perry Work Phone: [facility] 10-23-2022 13:11-0500 Respiratory rate 14 /min Dr. Chema Perry Work Phone: [facility] 10-23-2022 13:11-0500 SaO2% (BldA) [Mass fraction] 98 % Dr. Chema Perry Work Phone: [facility] 10-23-2022 13:11-0500 Systolic blood pressure 122 mm[Hg] Dr. Chema Perry Work Phone: [facility] 10-21-2022 13:08-0500 Body temperature 98.2 [degF] Dr. Chema Perry Work Phone: [facility] 10-21-2022 13:08-0500 Body weight 54.[address] Chema Perry Work Phone: [facility] 10-21-2022 13:08-0500 Diastolic blood pressure 74 mm[Hg] Dr. Chema Perry Work Phone: [facility] 10-21-2022 13:08-0500 Heart rate 87 /min Dr. Chema Perry Work Phone: [facility] 10-21-2022 13:08-0500 Respiratory rate 16 /min Dr. Chema Perry Work Phone: [facility] 10-21-2022 13:08-0500 SaO2% (BldA) [Mass fraction] 93 % Dr. Chema Perry Work Phone: [facility] 10-21-2022 13:08-0500 Systolic blood pressure 128 mm[Hg] Dr. Chema Perry Work Phone: [facility] 10-16-2022 17:21-0500 Body height 149.[address] Chema Perry Work Phone: [facility] 10-16-2022 17:21-0500 Body mass index (BMI) [Ratio] 24.1 kg/m2 Dr. Chema Perry Work Phone: [facility] 10-16-2022 17:21-0500 Body temperature 98.2 [degF] Dr. Chema Perry Work Phone: [facility] 10-16-2022 17:21-0500 Body weight 54.[address] Chema Perry Work Phone: [facility] 10-16-2022 17:21-0500 Diastolic blood pressure 92 mm[Hg] Dr. Chema Perry Work Phone: [facility] 10-16-2022 17:21-0500 Heart rate 81 /min Dr. Chema Perry Work Phone: [facility] 10-16-2022 17:21-0500 Respiratory rate 14 /min Dr. Chema Perry Work Phone: [facility] 10-16-2022 17:21-0500 SaO2% (BldA) [Mass fraction] 94 % Dr. Chema Perry Work Phone: [facility] 10-16-2022 17:21-0500 Systolic blood pressure 160 mm[Hg] Dr. Chema Perry Work Phone: [facility] 09-21-2022 10:53-0500 Body temperature 98.2 [degF] Dr. Chema Perry Work Phone: [facility] 09-21-2022 10:53-0500 Diastolic blood pressure 60 mm[Hg] Dr. Chema Perry Work Phone: [facility] 09-21-2022 10:53-0500 Heart rate 83 /min Dr. Chema Perry Work Phone: [facility] 09-21-2022 10:53-0500 Respiratory rate 14 /min Dr. Chema Perry Work Phone: [facility] 09-21-2022 10:53-0500 SaO2% (BldA) [Mass fraction] 95 % Dr. Chema Perry Work Phone: [facility] 09-21-2022 10:53-0500 Systolic blood pressure 104 mm[Hg] Dr. Chema Perry Work Phone: [facility] 07-24-2022 15:46-0500 Body temperature 96.8 [degF] Dr. Chema Perry Work Phone: [facility] 07-24-2022 15:46-0500 Body weight 56.[address] Chema Perry Work Phone: [facility] 07-24-2022 15:46-0500 Diastolic blood pressure 86 mm[Hg] Dr. Chema Perry Work Phone: [facility] 07-24-2022 15:46-0500 Heart rate 90 /min Dr. Chema Perry Work Phone: [facility] 07-24-2022 15:46-0500 Respiratory rate 16 /min Dr. Chema Perry Work Phone: [facility] 07-24-2022 15:46-0500 SaO2% (BldA) [Mass fraction] 91 % Dr. Chema Perry Work Phone: [facility] 07-24-2022 15:46-0500 Systolic blood pressure 134 mm[Hg] Dr. Chema Perry Work Phone: [facility] 07-22-2022 14:41-0500 Body height 149.[address] Arun Ramos Work Phone: [facility] 07-22-2022 14:41-0500 Body mass index (BMI) [Ratio] 25.2 kg/m2 Dr. Arun Ramos Work Phone: [facility] 07-22-2022 14:41-0500 Body temperature 98 [degF] Dr. Arun Ramos Work Phone: [facility] 07-22-2022 14:41-0500 Body weight 56.[address] Arun Ramos Work Phone: [facility] 07-22-2022 14:41-0500 Diastolic blood pressure 67 mm[Hg] Dr. Arun Ramos Work Phone: 8(081)674-622906 [place] [address] 07-22-2022 14:41-0500 Heart rate 90 /min Dr. Arun Ramos Work Phone: 9(837)051-288606 [place] [address] 07-22-2022 14:41-0500 Respiratory rate 18 /min Dr. Arun Ramos Work Phone: 9(987)025-028002 [address] 07-22-2022 14:41-0500 SaO2% (BldA) [Mass fraction] 95 % Dr. Arun Ramos Work Phone: 9(409)503-040506 [place] [address] 07-22-2022 14:41-0500 Systolic blood pressure 109 mm[Hg] Dr. Arun Ramos Work Phone: 8(953)146-591906 [place] [address] 07-13-2022 03:28-0500 Diastolic blood pressure 68 mm[Hg] Dr. Arun Ramos Work Phone: 7(328)238-728706 [place] [address] 07-13-2022 03:28-0500 Heart rate 78 /min Dr. Arun Ramos Work Phone: 7(042)824-142506 [place] [address] 07-13-2022 03:28-0500 Respiratory rate 16 /min Dr. Arun Ramos Work Phone: 3(858)535-167106 [place] [address] 07-13-2022 03:28-0500 SaO2% (BldA) [Mass fraction] 97 % Dr. Arun Ramos Work Phone: [facility] 07-13-2022 03:28-0500 Systolic blood pressure 135 mm[Hg] Dr. Arun Ramos Work Phone: 1(846)306-623206 [place] [address] 07-13-2022 00:21-0500 Body height 149.[address] Arun Ramos Work Phone: [facility] Work Phone: 07-13-2022 00:21-0500 Body mass index (BMI) [Ratio] 25.7 kg/m2 Dr. Arun Ramos Work Phone: [facility] 07-13-2022 00:21-0500 Body temperature 97.8 [degF] Dr. Arun Ramos Work Phone: [facility] 07-13-2022 00:21-0500 Body weight 57.[address] Arun Ramos Work Phone: 1(418)231-695306 [place] [address] 07-07-2022 09:10-0500 Body mass index (BMI) [Ratio] 24.4 kg/m2 Dr. Arun Ramos Work Phone: 0(608)770-404906 [place] [address] 07-07-2022 09:10-0500 Body temperature 99.2 [degF] Dr. Arun Ramos Work Phone: [facility] 07-07-2022 09:10-0500 Body weight 54.[address] Arun Ramos Work Phone: 0(296)636-374706 [place] [address] 07-07-2022 09:10-0500 Diastolic blood pressure 70 mm[Hg] Dr. Arun Ramos Work Phone: [facility] 07-07-2022 09:10-0500 Heart rate 81 /min Dr. Arun Ramos Work Phone: [facility] 07-07-2022 09:10-0500 Respiratory rate 16 /min Dr. Arun Ramos Work Phone: [facility] 07-07-2022 09:10-0500 SaO2% (BldA) [Mass fraction] 96 % Dr. Arun Ramos Work Phone: [facility] 07-07-2022 09:10-0500 Systolic blood pressure 118 mm[Hg] Dr. Arun Ramos Work Phone: [facility] 07-04-2022 13:35-0500 Body temperature 97.9 [degF] Dr. Arun Ramos Work Phone: 8(841)563-816006 [place] [address] 07-04-2022 13:35-0500 Body weight 56.[address] Arun Ramos Work Phone: 0(516)738-565206 [place] [address] 07-04-2022 13:35-0500 Diastolic blood pressure 81 mm[Hg] Dr. Arun Ramos Work Phone: 0(373)509-815610 [place] [address] 07-04-2022 13:35-0500 Heart rate 87 /min Dr. Arun Ramos Work Phone: 9(612)558-127210 [place] [address] 07-04-2022 13:35-0500 Respiratory rate 18 /min Dr. Arun Ramos Work Phone: 6(416)410-356510 [place] [address] 07-04-2022 13:35-0500 SaO2% (BldA) [Mass fraction] 90 % Dr. Arun Ramos Work Phone: 2(806)985-531710 [place] [address] 07-04-2022 13:35-0500 Systolic blood pressure 132 mm[Hg] Dr. Arun Ramos Work Phone: 7(850)262-662210 [place] [address] 06-25-2022 13:14-0500 Body mass index (BMI) [Ratio] 25.2 kg/m2 Dr. Arun Ramos Work Phone: 9(802)120-419310 [place] [address] 06-25-2022 13:14-0500 Body temperature 97.1 [degF] Dr. Arun Ramos Work Phone: 6(029)023-217510 [place] [address] 06-25-2022 13:14-0500 Body weight 56.[address] Arun Ramos Work Phone: 0(073)782-590410 [place] [address] 06-25-2022 13:14-0500 Diastolic blood pressure 70 mm[Hg] Dr. Arun Ramos Work Phone: 6(515)039-578210 [place] [address] 06-25-2022 13:14-0500 Heart rate 78 /min Dr. Arun Ramos Work Phone: 2(694)285-403510 [place] [address] 06-25-2022 13:14-0500 Respiratory rate 18 /min Dr. Arun Ramos Work Phone: 2(050)879-321010 [place] [address] 06-25-2022 13:14-0500 SaO2% (BldA) [Mass fraction] 94 % Dr. Arun Ramos Work Phone: [facility] 06-25-2022 13:14-0500 Systolic blood pressure 122 mm[Hg] Dr. Arun Ramos Work Phone: [facility] 06-07-2022 13:04-0400 Body mass index (BMI) [Ratio] 24.7 kg/m2 Dr. Arun Ramos Work Phone: [facility] 06-07-2022 13:04-0400 Body weight 55.[address] Arun Ramos Work Phone: 8(338)183-186806 [place] [address] 06-07-2022 13:04-0400 Diastolic blood pressure 70 mm[Hg] Dr. Arun Ramos Work Phone: 2(566)492-633006 [place] [address] 06-07-2022 13:04-0400 Heart rate 80 /min Dr. Arun Ramos Work Phone: [facility] 06-07-2022 13:04-0400 Respiratory rate 18 /min Dr. Arun Ramos Work Phone: [facility] 06-07-2022 13:04-0400 Systolic blood pressure 122 mm[Hg] Dr. Arun Ramos Work Phone: [facility] 05-13-2022 14:11-0400 Body temperature 98 [degF] Dr. Arun Ramos Work Phone: [facility] Work Phone: 05-13-2022 14:11-0400 Body weight 55.[address] Arun Ramos Work Phone: [facility] Work Phone: 05-13-2022 14:11-0400 Diastolic blood pressure 89 mm[Hg] Dr. Arun Ramos Work Phone: [facility] Work Phone: 05-13-2022 14:11-0400 Heart rate 87 /min Dr. Arun Ramos Work Phone: [facility] Work Phone: 05-13-2022 14:11-0400 Respiratory rate 16 /min Dr. Arun Ramos Work Phone: [facility] Work Phone: 05-13-2022 14:11-0400 SaO2% (BldA) [Mass fraction] 95 % Dr. Arun Ramos Work Phone: [facility] Work Phone: 05-13-2022 14:11-0400 Systolic blood pressure 149 mm[Hg] Dr. Arun Ramos Work Phone: [facility] Work Phone: 04-25-2022 11:37-0400 Body temperature 97 [degF] Dr. Arun Ramos Work Phone: [facility] Work Phone: 04-25-2022 11:37-0400 Body weight 56.[address] Arun Ramos Work Phone: [facility] Work Phone: 04-25-2022 11:37-0400 Diastolic blood pressure 77 mm[Hg] Dr. Arun Ramos Work Phone: [facility] Work Phone: 04-25-2022 11:37-0400 Heart rate 76 /min Dr. Arun Ramos Work Phone: [facility] Work Phone: 04-25-2022 11:37-0400 Respiratory rate 18 /min Dr. Arun Ramos Work Phone: [facility] Work Phone: 04-25-2022 11:37-0400 SaO2% (BldA) [Mass fraction] 90 % Dr. Arun Ramos Work Phone: [facility] Work Phone: 04-25-2022 11:37-0400 Systolic blood pressure 131 mm[Hg] Dr. Arun Ramos Work Phone: [facility] Work Phone: 04-11-2022 12:48-0400 Body weight 53.07 kg Laisha Zia [employer] Work Phone: [facility] 04-11-2022 12:48-0400 Diastolic blood pressure 77 mm[Hg] Laisha Lizarraga APRN.[employer] Work Phone: [facility] 04-11-2022 12:48-0400 Heart rate 75 /min Laisha Zia [employer] Work Phone: [facility] 04-11-2022 12:48-0400 Systolic blood pressure 117 mm[Hg] Laisha Zia [employer] Work Phone: [facility] 03-27-2022 05:59-0400 Body mass index (BMI) [Ratio] 25.1 kg/m2 Dr. Arun Ramos Work Phone: [facility] Work Phone: 03-27-2022 05:59-0400 Body temperature 98.6 [degF] Dr. Arun Ramos Work Phone: [facility] Work Phone: 03-27-2022 05:59-0400 Body weight 56.[address] Arun Ramos Work Phone: [facility] Work Phone: 03-27-2022 05:59-0400 Diastolic blood pressure 68 mm[Hg] Dr. Arun Ramos Work Phone: [facility] Work Phone: 03-27-2022 05:59-0400 Heart rate 90 /min Dr. Arun Ramos Work Phone: [facility] Work Phone: 03-27-2022 05:59-0400 Respiratory rate 16 /min Dr. Arun Ramos Work Phone: [facility] Work Phone: 03-27-2022 05:59-0400 SaO2% (BldA) [Mass fraction] 92 % Dr. Arun Ramos Work Phone: [facility] Work Phone: 03-27-2022 05:59-0400 Systolic blood pressure 111 mm[Hg] Dr. Arun Ramos Work Phone: [facility] Work Phone: 03-21-2022 14:11-0400 Body mass index (BMI) [Ratio] 24.9 kg/m2 Dr. Arun Ramos Work Phone: [facility] Work Phone: 03-21-2022 14:11-0400 Body temperature 97.6 [degF] Dr. Arun Ramos Work Phone: [facility] Work Phone: 03-21-2022 14:11-0400 Body weight 56.[address] Arun Ramos Work Phone: [facility] Work Phone: 03-21-2022 14:11-0400 Diastolic blood pressure 82 mm[Hg] Dr. Arun Ramos Work Phone: [facility] Work Phone: 03-21-2022 14:11-0400 Heart rate 80 /min Dr. Arun Ramos Work Phone: [facility] Work Phone: 03-21-2022 14:11-0400 Respiratory rate 16 /min Dr. Arun Ramos Work Phone: [facility] Work Phone: 03-21-2022 14:11-0400 SaO2% (BldA) [Mass fraction] 98 % Dr. Arun Ramos Work Phone: [facility] Work Phone: 03-21-2022 14:11-0400 Systolic blood pressure 142 mm[Hg] Dr. Arun Ramos Work Phone: [facility] Work Phone: 03-15-2022 19:42-0400 Body height 149.[address] Arun Ramos Work Phone: [facility] Work Phone: 03-15-2022 19:42-0400 Body mass index (BMI) [Ratio] 26.4 kg/m2 Dr. Arun Ramos Work Phone: [facility] Work Phone: 03-15-2022 19:42-0400 Body temperature 98 [degF] Dr. Arun Ramos Work Phone: [facility] Work Phone: 03-15-2022 19:42-0400 Body weight 59.[address] Arun Ramos Work Phone: [facility] Work Phone: 03-15-2022 19:42-0400 Diastolic blood pressure 83 mm[Hg] Dr. Arun Ramos Work Phone: [facility] Work Phone: 03-15-2022 19:42-0400 Heart rate 84 /min Dr. Arun Ramos Work Phone: [facility] Work Phone: 03-15-2022 19:42-0400 Respiratory rate 18 /min Dr. Arun Ramos Work Phone: [facility] Work Phone: 03-15-2022 19:42-0400 SaO2% (BldA) [Mass fraction] 93 % Dr. Arun Ramos Work Phone: [facility] Work Phone: 03-15-2022 19:42-0400 Systolic blood pressure 144 mm[Hg] Dr. Arun Ramos Work Phone: [facility] Work Phone: 02-15-2022 17:00-0400 Respiratory rate 14 /min Dr. Arun Ramos Work Phone: [facility] Work Phone: 02-15-2022 17:00-0400 SaO2% (BldA) [Mass fraction] 99 % Dr. Arun Ramos Work Phone: [facility] Work Phone: 02-15-2022 15:00-0400 Diastolic blood pressure 81 mm[Hg] Dr. Arun Ramos Work Phone: [facility] Work Phone: 02-15-2022 15:00-0400 Heart rate 67 /min Dr. Arun Ramos Work Phone: [facility] Work Phone: 02-15-2022 15:00-0400 Systolic blood pressure 122 mm[Hg] Dr. Arun Ramos Work Phone: [facility] Work Phone: 02-15-2022 09:48-0400 Body height 149.[address] Arun Ramos Work Phone: [facility] Work Phone: 02-15-2022 09:48-0400 Body mass index (BMI) [Ratio] 24.9 kg/m2 Dr. Arun Ramos Work Phone: [facility] Work Phone: 02-15-2022 09:48-0400 Body temperature 98.3 [degF] Dr. Arun Ramos Work Phone: [facility] Work Phone: 02-15-2022 09:48-0400 Body weight [address] Arun Ramos Work Phone: [facility] Work Phone: 01-23-2022 10:42-0400 Body weight 53.98 kg Mitchel Muse MD Work Phone: [facility] 01-23-2022 10:42-0400 Diastolic blood pressure 72 mm[Hg] Mitchel Muse MD Work Phone: [facility] 01-23-2022 10:42-0400 Heart rate 82 /min Mitchel Muse MD Work Phone: [facility] 01-23-2022 10:42-0400 Systolic blood pressure 114 mm[Hg] Mitchel Muse MD Work Phone: [facility] 01-10-2022 13:19-0400 Body height 152.[address] Arun Ramos Work Phone: [facility] Work Phone: 01-10-2022 13:19-0400 Body mass index (BMI) [Ratio] 23.4 kg/m2 Dr. Arun Ramos Work Phone: [facility] Work Phone: 01-10-2022 13:19-0400 Body temperature 97.4 [degF] Dr. Arun Ramos Work Phone: [facility] Work Phone: 01-10-2022 13:19-0400 Body weight 54.[address] Arun Ramos Work Phone: [facility] Work Phone: 01-10-2022 13:19-0400 Diastolic blood pressure 76 mm[Hg] Dr. Arun Ramos Work Phone: [facility] Work Phone: 01-10-2022 13:19-0400 Heart rate 84 /min Dr. Arun Ramos Work Phone: [facility] Work Phone: 01-10-2022 13:19-0400 Respiratory rate 16 /min Dr. Arun Ramos Work Phone: [facility] Work Phone: 01-10-2022 13:19-0400 SaO2% (BldA) [Mass fraction] 92 % Dr. Arun Ramos Work Phone: [facility] Work Phone: 01-10-2022 13:19-0400 Systolic blood pressure 115 mm[Hg] Dr. Arun Ramos Work Phone: [facility] Work Phone: 11-13-2021 11:13-0400 Body weight 56.25 kg Laisha Lizarraga APRN[employer] Work Phone: [facility] 11-13-2021 11:13-0400 Diastolic blood pressure 68 mm[Hg] Laisha Lizarraga APRN[employer] Work Phone: [facility] 11-13-2021 11:13-0400 Heart rate 83 /min Laisha Lizarraga APRN[employer] Work Phone: [facility] 11-13-2021 11:13-0400 Systolic blood pressure 125 mm[Hg] Laisha Lizarraga APRN[employer] Work Phone: [facility] 11-07-2021 14:12-0400 Body height 149.[address] Arun Ramos Work Phone: [facility] Work Phone: 11-07-2021 14:12-0400 Body mass index (BMI) [Ratio] 23.2 kg/m2 Dr. Arun Ramos Work Phone: [facility] Work Phone: 11-07-2021 14:12-0400 Body temperature 97.2 [degF] Dr. Arun Ramos Work Phone: [facility] Work Phone: 11-07-2021 14:12-0400 Body weight 52.[address] Arun Ramos Work Phone: [facility] Work Phone: 11-07-2021 14:12-0400 Diastolic blood pressure 81 mm[Hg] Dr. Arun Ramos Work Phone: [facility] Work Phone: 11-07-2021 14:12-0400 Heart rate 100 /min Dr. Arun Ramos Work Phone: [facility] Work Phone: 11-07-2021 14:12-0400 Respiratory rate 19 /min Dr. Arun Ramos Work Phone: [facility] Work Phone: 11-07-2021 14:12-0400 SaO2% (BldA) [Mass fraction] 91 % Dr. Arun Ramos Work Phone: [facility] Work Phone: 11-07-2021 14:12-0400 Systolic blood pressure 110 mm[Hg] Dr. Arun Ramos Work Phone: [facility] Work Phone: 10-08-2021 19:03-0500 Body temperature 97.7 [degF] Dr. Arun Ramos Work Phone: [facility] Work Phone: 10-08-2021 19:03-0500 Diastolic blood pressure 88 mm[Hg] Dr. Arun Ramos Work Phone: [facility] Work Phone: 10-08-2021 19:03-0500 Heart rate 81 /min Dr. Arun Ramos Work Phone: [facility] Work Phone: 10-08-2021 19:03-0500 Respiratory rate 20 /min Dr. Arun Ramos Work Phone: [facility] Work Phone: 10-08-2021 19:03-0500 SaO2% (BldA) [Mass fraction] 92 % Dr. Arun Ramos Work Phone: [facility] Work Phone: 10-08-2021 19:03-0500 Systolic blood pressure 134 mm[Hg] Dr. Arun Ramos Work Phone: [facility] Work Phone: 10-06-2021 15:46-0500 Body weight 55.[address] Arun Ramos Work Phone: [facility] Work Phone: 10-05-2021 17:32-0500 Body mass index (BMI) [Ratio] 24.8 kg/m2 Dr. Arun Ramos Work Phone: [facility] Work Phone: 10-04-2021 10:45-0500 Body temperature 97.3 [degF] Dr. Arun Ramos Work Phone: [facility] Work Phone: 10-04-2021 10:45-0500 Diastolic blood pressure 80 mm[Hg] Dr. Arun Ramos Work Phone: [facility] Work Phone: 10-04-2021 10:45-0500 Heart rate 90 /min Dr. Arun Ramos Work Phone: [facility] Work Phone: 10-04-2021 10:45-0500 Respiratory rate 20 /min Dr. Arun Ramos Work Phone: [facility] Work Phone: 10-04-2021 10:45-0500 SaO2% (BldA) [Mass fraction] 92 % Dr. Arun Ramos Work Phone: [facility] Work Phone: 10-04-2021 10:45-0500 Systolic blood pressure 134 mm[Hg] Dr. Arun Ramos Work Phone: [facility] Work Phone: 10-02-2021 09:01-0500 Body weight 57.[address] Arun Ramos Work Phone: [facility] Work Phone: 09-27-2021 19:53-0500 Inhaled oxygen concentration 21 % Dr. Arun Ramos Work Phone: [facility] Work Phone: 09-04-2021 12:15-0500 Body mass index (BMI) [Ratio] 27 kg/m2 Dr. Arun Ramos Work Phone: [facility] Work Phone: 09-04-2021 07:30-0500 Body temperature 97.8 [degF] Dr. Arun Ramos Work Phone: [facility] Work Phone: 09-04-2021 07:30-0500 Diastolic blood pressure 85 mm[Hg] Dr. Arun Ramos Work Phone: [facility] Work Phone: 09-04-2021 07:30-0500 Heart rate 79 /min Dr. Arun Ramos Work Phone: [facility] Work Phone: 09-04-2021 07:30-0500 Respiratory rate 18 /min Dr. Arun Ramos Work Phone: [facility] Work Phone: 09-04-2021 07:30-0500 SaO2% (BldA) [Mass fraction] 94 % Dr. Arun Ramos Work Phone: [facility] Work Phone: 09-04-2021 07:30-0500 Systolic blood pressure 154 mm[Hg] Dr. Arun Ramos Work Phone: [facility] Work Phone: 09-02-2021 18:34-0500 Body mass index (BMI) [Ratio] 27.3 kg/m2 Dr. Arun Ramos Work Phone: [facility] Work Phone: 09-02-2021 18:34-0500 Body weight 61.[address] Arun Ramos Work Phone: [facility] Work Phone: 09-01-2021 17:54-0500 Diastolic blood pressure 85 mm[Hg] Dr. Arun Ramos Work Phone: [facility] Work Phone: 09-01-2021 17:54-0500 Heart rate 74 /min Dr. Arun Ramos Work Phone: [facility] Work Phone: 09-01-2021 17:54-0500 Respiratory rate 19 /min Dr. Arun Ramos Work Phone: [facility] Work Phone: 09-01-2021 17:54-0500 SaO2% (BldA) [Mass fraction] 92 % Dr. Arun Ramos Work Phone: [facility] Work Phone: 09-01-2021 17:54-0500 Systolic blood pressure 156 mm[Hg] Dr. Arun Ramos Work Phone: [facility] Work Phone: 09-01-2021 16:32-0500 Body mass index (BMI) [Ratio] 24 kg/m2 Dr. Arun Ramos Work Phone: [facility] Work Phone: 09-01-2021 16:32-0500 Body temperature 98.5 [degF] Dr. Arun Ramos Work Phone: [facility] Work Phone: 09-01-2021 16:32-0500 Body weight 63.[address] Arun Ramos Work Phone: [facility] Work Phone: 08-09-2021 11:59-0500 Body mass index (BMI) [Ratio] 28.3 kg/m2 Dr. Arun Ramos Work Phone: [facility] Work Phone: 08-09-2021 11:59-0500 Body temperature 97.5 [degF] Dr. Arun Ramos Work Phone: [facility] Work Phone: 08-09-2021 11:59-0500 Body weight 63.[address] Arun Ramos Work Phone: [facility] Work Phone: 08-09-2021 11:59-0500 Diastolic blood pressure 86 mm[Hg] Dr. Arun Ramos Work Phone: [facility] Work Phone: 08-09-2021 11:59-0500 Heart rate 80 /min Dr. Arun Ramos Work Phone: [facility] Work Phone: 08-09-2021 11:59-0500 Respiratory rate 16 /min Dr. Arun Ramos Work Phone: [facility] Work Phone: 08-09-2021 11:59-0500 SaO2% (BldA) [Mass fraction] 98 % Dr. Arun Ramos Work Phone: [facility] Work Phone: 08-09-2021 11:59-0500 Systolic blood pressure 136 mm[Hg] Dr. Arun Ramos Work Phone: [facility] Work Phone: Encounters Encounter Date Encounter Type Care Provider Facility Start: 02-03-2025 End: 02-03-2025 Emergency department patient visit Dr. Chema Perry MD Work Phone: -Emergency Department Work Phone: Start: 02-01-2025 ambulatory Chema Perry Facility:[facility] Start: 02-01-[address] 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, psychotic disturbance, mood disturbance, or anxiety (HCC) (Primary Dx); Physical deconditioning; Gait instability; Fine motor impairment; Dizziness; Cognitive communication deficit; Idiopathic peripheral neuropathy; Restless legs syndrome Start: 12-23-2024 End: 12-23-2024 ambulatory LAISHA LIZARRAGA Facility:[facility] Start: 12-20-2024 End: 12-20-2024 Patient [...] Start: 12-20-2024 End: 12-20-2024 ambulatory SOURAV MARCIAL Facility:[facility] Start: 12-19-2024 End: 12-19-2024 Patient encounter procedure Young VALENCIA Work Phone: [facility] Comment on above: Skin tear of right forearm without compl ication, initial encounter (Primary Dx) Start: 12-19-2024 End: 12-19-2024 ambulatory YOUNG LORD Facility:[facility] Start: 12-16-2024 End: 12-16-2024 Refill Sourav Marcial MD Work Phone: Cardiology Comment on above: Refill Request Start: 12-09-2024 End: 12-09-2024 ambulatory LUH DEAN Facility:[facility] Start: 12-03-2024 End: 12-03-2024 ambulatory ANILA DE PAZ Facility:[facility] Start: 12-03-2024 End: 12-03-2024 Patient encounter procedure Anila De Paz MD Work Phone: General Surgery Comment on above: Hiatal hernia (Primary Dx) Start: 11-26-2024 End: 11-26-2024 Patient encounter procedure Radha Hesson OTR/L Work Phone: [facility] Comment on above: Fine motor impairment (Primary Dx); Weakness; Lack of coordination; Decreased activities of daily living (ADL) Start: 11-26-2024 End: 11-26-2024 ambulatory Radha Hesson OTR/L Work Phone: [facility] Start: 11-19-2024 End: 11-19-2024 Patient encounter procedure Radha Hesson OTR/L Work Phone: [facility] Comment on above: Fine motor impairment (Primary Dx); Weakness; Lack of coordination Start: 11-19-2024 End: 11-19-2024 ambulatory Radha Hesson OTR/L Work Phone: [facility] Start: 11-17-2024 End: 11-17-2024 Orders Only Raquel Null MD Work Phone: General Surgery Comment on above: Dilation of biliary tract (Primary Dx) Start: 11-15-2024 End: 11-17-2024 Evaluation and management of inpatient ANILA DE PAZ Facility:[facility] Start: 11-15-2024 End: 11-15-2024 Telephone encounter Taylor Forrest RN General Surgery Comment on above: Generalized abdominal pain (Primary Dx); Diarrhea, unspecified type Start: 11-12-2024 End: 11-12-2024 Patient encounter procedure Radha Hesson OTR/L Work Phone: [facility] Comment on above: Fine motor impairment (Primary Dx); Decreased activities of daily living (ADL); Lack of coordination; Weakness Start: 11-12-2024 End: 11-12-2024 ambulatory Radha Hesson OTR/L Work Phone: [facility] Start: 11-12-2024 End: 11-12-2024 Telephone encounter Pippa Fox RN General Surgery Start: 11-11-2024 End: 11-11-2024 [facility] Facility:[facility] Start: 11-11-2024 End: 11-11-2024 Subsequent hospital visit by physician [facility] Cat Scan Comment on above: Nausea [R11.0] Start: 11-09-2024 End: 11-09-[address] Susan Emery DO Work Phone: [facility] Work Phone: Start: 11-09-2024 End: 11-09-[address] Chema Perry MD -Radiology, [facility] Work Phone: Start: 11-08-2024 End: 11-09-2024 [facility] Facility:[facility] Start: 11-08-2024 End: 11-08-2024 E-mail encounter from caregiver Taylor Forrest RN General Surgery Start: 11-08-2024 End: 11-08-2024 Follow-up encounter Taylor Forrest RN General Surgery Comment on above: Follow-up on Questions Start: 11-05-2024 End: 11-05-2024 Patient encounter procedure Radha Street OTR/L Work Phone: [facility] Comment on above: Fine motor impairment (Primary Dx); Decreased activities of daily living (ADL); Lack of coordination; Weakness Start: 11-05-2024 End: 11-05-[address] OTR/L Work Phone: [facility] Start: 11-03-2024 End: 11-03-2024 Patient encounter procedure Denice Jacobs PA-C Work Phone: Neurology Comment on above: Degeneration of intervertebral disc of l umbar region, unspecified whether pain present (Primary Dx); Left leg paresthesias; Right leg paresthesias; Ulnar neuropathy of right upper extremity Start: 11-03-2024 End: 11-03-2024 ambulatory DENICE JACOBS Facility:[facility] Start: 11-02-2024 End: 11-02-2024 Admission to same day surgery center Anila De Paz MD Work Phone: General Surgery Start: 11-02-2024 End: 11-02-2024 E-mail encounter from caregiver Anila De Paz MD Work Phone: General Surgery Start: 11-01-2024 End: 11-01-2024 ambulatory HUMZA CAMEJO Facility:[facility] Start: 11-01-2024 End: 11-01-2024 Patient [...] 10-29-2024 End: 10-29-2024 ambulatory ANILA DE PAZ Facility:[facility] Start: 10-29-2024 End: 10-29-2024 Patient encounter procedure Radha Street OTR/L Work Phone: [facility] Comment on above: Decreased activities of daily living (AD L) (Primary Dx); Fine motor impairment; Lack of coordination; Weakness Start: 10-29-2024 End: 10-29-2024 ambulatory Radha Srteet OTR/L Work Phone: [facility] Start: 10-22-2024 End: 10-22-2024 Patient encounter procedure Sandra SUMNER -[facility] Work Phone: Start: 10-22-2024 End: 10-22-2024 ambulatory Chema Perry Facility:[facility] Start: 10-18-2024 End: 10-18-[address] Chema Perry MD Work Phone: [facility] Work Phone: Start: 10-18-2024 End: 10-18-[address] Chema Perry MD -Outpatient Breast Imaging Work Phone: Start: 10-17-2024 End: 10-18-2024 ambulatory Laisha Lizarraga APRN.CNP Work Phone: Neurology Comment on above: Primary Care Phyiscian (PCP) Start: 10-14-2024 End: 10-14-[address] Chema Perry MD -[facility] Work Phone: Start: 10-14-2024 End: 10-14-2024 ambulatory Chema Perry Facility:[facility] Start: 10-13-2024 End: 10-13-2024 ambulatory LAISHA LIZARRAGA Facility:[facility] Start: 10-13-2024 End: 10-13-2024 Office outpatient visit 40 minutes Laisha Lizarraga APRN.[employer] Work Phone: Neurology Comment on above: Mild [...] Dx) Start: 10-08-2024 End: 10-08-2024 ambulatory ANILA ZANDRA Facility:[facility] Start: 09-20-2024 End: 09-23-2024 Evaluation and management of inpatient ANILA DE PAZ Facility:[facility] Start: 09-18-2024 End: 09-18-2024 Emergency department patient visit Dr. Susan Emery DO -Emergency Department Work Phone: Start: 09-14-2024 End: 09-14-2024 ambulatory CHEMA PERRY Facility:[facility] Start: 09-14-2024 Encounter for other preprocedural examination ANILA DE PAZ [facility] Start: 09-14-2024 End: 09-14-2024 Office consultation new/estab patient 80 min [facility] [place] 1 Work Phone: Pre Anesthesia Comment on [...] Start: 09-14-2024 End: 09-14-2024 Preprocedural examination done [facility] [place] 1 Work Phone: [facility] Work Phone: Start: 09-14-2024 End: 09-14-2024 [facility] Facility:[facility] Start: 09-14-2024 Encounter for other preprocedural examination [facility] Start: 09-13-2024 End: 09-13-2024 Orders Only Alisa Haile MD Work Phone: Gastroenterology Comment on above: Choledocholithiasis (Primary Dx) 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] Start: 09-10-2024 End: 09-10-2024 ambulatory DENICE EMELIA Neurology Comment on above: EMG Start: 09-10-2024 End: 09-10-2024 Patient encounter procedure Emg 2 Neur [facility] (Max Weight: 850) Neurology Start: 09-09-2024 End: 09-09-2024 Telephone encounter Jacqueline Noland PAINT PROCESS ENGINEER General Surgery Start: 09-08-2024 End: 09-08-2024 Orders Only Susan Srinivasan MD Work Phone: General Surgery Comment on above: Dilated pancreatic duct (Primary Dx) UPDATED Pre-op Instr uctions Patient Update [employer] Architect - O ther (Update on EUS orders ) Start: 09-07-2024 End: 09-07-2024 [facility] Facility:[facility] Start: 09-07-2024 End: 09-07-2024 Subsequent hospital visit by physician [employer] [facility] Wstr (I-Stat/1.5t) Work Phone: Radiology Comment on [...] done Anila De Paz MD Work Phone: [facility] Start: 08-25-2024 End: 08-25-2024 ambulatory QARAB DUNG Facility:[facility] Start: 08-25-2024 End: 08-25-2024 Admission to same day surgery center Taylor Forrest RN General Surgery Comment on above: Contact Information Start: 08-25-2024 End: 08-25-2024 E-mail encounter from caregiver Taylor Forrest RN General Surgery Start: 08-25-2024 End: 08-25-2024 Telephone encounter Taylor Forrest RN General Surgery Comment on above: Patient Question (Next Steps ) Start: 08-09-2024 End: 08-09-2024 ambulatory DENICE [facility] Facility:[facility] Start: 08-06-2024 End: 08-06-2024 ambulatory DENICE [facility] Facility:[facility] Start: 08-06-2024 End: 08-06-2024 Patient encounter procedure Denice Jacobs PA-C Work Phone: Neurology Comment on above: Neuropathy (Primary Dx); Paresthesia of both feet; Frequent falls Start: 08-03-2024 End: 08-03-2024 ambulatory [facility] Facility:[facility] Start: 08-03-2024 Encounter for other preprocedural examination SOURAV MARCIAL [facility] Start: 08-03-2024 End: 08-03-2024 Patient encounter procedure [...] examination done Sourav Marcial MD Work Phone: [facility] Start: 08-02-2024 End: 08-02-2024 ambulatory HUMZA CAMEJO Facility:[facility] Start: 08-02-2024 End: 08-02-2024 Patient encounter procedure Humza Caemjo MD Work Phone: Ophthalmology Comment on above: Primary open angle glaucoma (POAG) of elisa th eyes, severe stage Start: 07-21-2024 End: 07-21-2024 [facility] KIRSTIN Facility:[facility] Start: 07-21-2024 End: 07-21-2024 Subsequent hospital visit by physician Eliazar Brown MD Work Phone: Gastroenterology Comment on above: Hiatal hernia [K44.9] Start: 07-19-2024 End: 07-19-[address] Christopher Turk DO -[facility] Work Phone: Start: 07-19-2024 End: 07-19-2024 ambulatory Christopher Turk Facility:[facility] Start: 07-19-2024 End: 07-19-2024 Telephone encounter Willa Torres APRN.CNP Work Phone: Pre Anesthesia Comment on above: Request Outside Medical Records Start: 07-16-2024 End: 07-16-2024 Preprocedural examination done [place] [id number] Work Phone: [facility] Start: 07-16-2024 End: 07-16-2024 PAT [place] [id number] Work Phone: Pre Anesthesia Comment on above: Pre-operative examination (Primary Dx); 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); MS (multiple sclerosis) ([facility]); History of complex partial epilepsy; Restless legs syndrome; Atherosclerosis of [place] coronary artery of [place] heart with angina pectoris (HCC); Essential hypertension; Mixed hyperlipidemia; Parkinsonism, unspecified Parkinsonism type ([facility]); Seizure disorder ([facility]); History of DVT (deep vein thrombosis); Obstructive sleep apnea syndrome; Bronchiectasis without complication ([facility]); Gastroesophageal reflux disease, unspecified whether esophagitis present; Esophageal stricture; Hypokalemia due to excessive renal loss of potassium; Overactive bladder; Hypothyroidism, unspecified type; History of malignant neoplasm of breast; Bilateral leg edema; Osteoporosis, unspecified osteoporosis type, unspecified pathological fracture presence; Multiple falls; Pulmonary embolism, other, unspecified chronicity, unspecified whether acute cor pulmonale present ([facility]) Start: 07-14-2024 End: 07-14-2024 Telephone encounter Jaqueline Del Cid RNwax pourer Comment on above: Appointment Confirmation Start: 07-12-2024 End: 07-12-[address] Christopher Turk DO -[facility] Work Phone: Start: 07-12-2024 End: 07-12-2024 ambulatory Chema Perry Facility:[facility] Start: 07-09-2024 End: 07-09-2024 ambulatory Christopher Turk Facility:[facility] Start: 07-09-2024 End: 07-09-[address] Christopher Turk DO -Physical Therapy Work Phone: Start: 07-09-2024 End: 07-09-2024 ambulatory ANILA AGUILARARRETE Facility:[facility] Start: 07-07-2024 End: 07-08-2024 Telephone encounter Fatimah Robbins RNwax pourer Comment on above: Patient Question (EGD Instructions neede d) Patient Question Start: 07-07-2024 End: 07-07-[address] Chema Perry MD -[facility] Work Phone: Start: 07-07-2024 End: 07-07-2024 ambulatory Chema Perry Facility:[facility] Start: 07-06-2024 ambulatory Chema Perry Facility:[facility] Start: 07-05-2024 End: 07-05-[address] 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 Wstr (I-Stat) Work Phone: Cat Scan Comment on above: Hiatal hernia [K44.9] Start: 06-23-2024 End: 06-23-2024 ambulatory ANILA DE PAZ Facility:[facility] Start: 06-18-2024 End: 06-18-2024 Preprocedural examination done Anila De Paz MD Work Phone: [facility] Start: 06-18-2024 End: 07-07-2024 Orders Only Anila De Paz MD Work Phone: General Surgery Comment on above: H/O acute myocardial infarction (Primary Dx); Cardiomyopathy, unspecified type (HCC); Pre-op evaluation; Encounter to establish care Hiatal hernia (Prima ry Dx) Pre-Procedure Leticia vázquez Start: 06-17-2024 End: 06-17-2024 Telephone encounter Taylor Forrest RN General Surgery Comment on above: Mobile Solutions Architect - Other (Chart prep) Start: 06-16-2024 End: 06-16-2024 ambulatory [facility] Facility:[facility] Start: 06-10-2024 End: 06-10-2024 Refill Humza Camejo MD Work Phone: Ophthalmology Comment on above: Refill Request Start: 06-07-2024 End: 06-07-2024 Emergency department patient visit Susan Emery Facility:[facility] Start: 06-05-2024 End: 06-05-2024 ambulatory [facility] Facility:[facility] Start: 05-17-2024 End: 05-17-2024 ambulatory [facility] Facility:[facility] Start: 05-17-2024 End: 05-17-2024 Patient encounter procedure Susan Squires MD Work Phone: General Surgery Comment on above: Hiatal hernia (Primary Dx); Gastroesophageal reflux disease, unspecified whether esophagitis present Start: 05-04-2024 End: 05-04-2024 ambulatory [facility] Facility:[facility] Start: 05-03-2024 End: 05-03-2024 ambulatory [facility] Facility:[facility] Start: 05-03-2024 End: 05-03-2024 Patient encounter procedure Humza Camejo MD Work Phone: Ophthalmology Comment on above: Primary open angle glaucoma (POAG) of elisa th eyes, severe stage Start: 04-22-2024 End: 04-22-2024 ambulatory [facility] Facility:[facility] Start: 04-19-2024 End: 04-19-2024 ambulatory [facility] Facility:[facility] Start: 04-17-2024 End: 04-17-2024 Emergency department patient visit Vincent Morris Facility:[facility] Start: 04-16-2024 End: 04-16-2024 ambulatory [facility] Facility:[facility] Start: 04-09-2024 End: 04-09-2024 ambulatory Sandra Vincent NP Facility:[facility] Start: 04-05-2024 End: 04-05-2024 ambulatory [facility] Facility:[facility] Start: 04-01-2024 End: 04-01-2024 ambulatory [facility] Facility:[facility] Start: 03-25-2024 End: 03-25-2024 ambulatory CHEMA CABANCHNER Facility:[facility] Start: 03-25-2024 End: 03-25-2024 Office outpatient visit 40 minutes Laisha Lizarraga APRN.[employer] Work Phone: Neurology Comment on above: 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, psychotic disturbance, mood disturbance, or anxiety (HCC) (Primary Dx); Physical deconditioning; Gait instability; Fine motor impairment; Dizziness; Depression, unspecified depression type; Postural kyphosis of thoracic region Start: 03-24-2024 Refill Humza Camejo MD Work Phone: Ophthalmology Comment on above: Refill Request Start: 03-18-2024 End: 03-18-2024 ambulatory [facility] Facility:[facility] Start: 03-16-2024 End: 03-16-2024 ambulatory [facility] Facility:[facility] Start: 03-16-2024 End: 03-16-2024 ambulatory [facility] Facility:[facility] Start: 03-12-2024 Refill Laisha Lizarraga APRN.[employer] Work Phone: Neurology Comment on above: Refill Request Start: 03-01-2024 End: 03-01-2024 ambulatory Malachi Caal Facility:[facility] Start: 02-23-2024 End: 02-23-2024 ambulatory [facility] Facility:[facility] Start: 02-11-2024 End: 02-12-2024 ambulatory [facility] Facility:[facility] Start: 12-26-2023 Refill Laisha Lizarraga APRN.[employer] Work Phone: Neurology Comment on above: Refill Request Start: 12-26-2023 Refill Humza Camejo MD Work Phone: Ophthalmology Comment on above: Refill Request Start: 12-05-2023 Non-patient / Non-visit Dr. Chema Perry Work Phone: [facility] Work Phone: Start: 12-04-2023 Non-patient / Non-visit Dr. Chema Perry Work Phone: [facility] Start: 12-04-2023 End: 12-04-[address] Chema Perry Work Phone: [facility] Work Phone: Start: 12-04-2023 End: 12-04-[address] [facility] Work Phone: Start: 11-12-2023 End: 11-12-[address] 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 Chema Perry Work Phone: [facility] Work Phone: Start: 10-14-2023 End: 10-14-[address] Chema Perry Work Phone: [facility] Work Phone: Start: 10-08-2023 End: 10-08-[address] Chema Perry Work Phone: [facility] Work Phone: Start: 09-24-2023 End: 09-24-[address] Chema Perry Work Phone: [facility] [place] Work Phone: Start: 08-14-2023 End: 08-14-[address] Chema Perry Work Phone: [facility] Work Phone: Start: 08-14-2023 End: 08-14-[address] Chema Perry Work Phone: [facility]-Physical Therapy Work Phone: Start: 08-14-[address] Chema Perry Work Phone: [facility]-Physical Therapy Work Phone: Start: 08-13-2023 End: 08-13-[address] Chema Perry Work Phone: [facility] [place] Work Phone: Start: 07-15-2023 End: 07-15-[address] Chema Perry Work Phone: [facility] Work Phone: Start: 07-15-2023 End: 07-15-[address] 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 Chema Perry Work Phone: [facility] Work Phone: Start: 06-04-2023 End: 06-04-[address] Chema Perry Work Phone: [facility] Work Phone: Start: 05-29-2023 Non-patient / Non-visit Dr. Chema Perry Work Phone: [facility] Start: 05-29-2023 End: 05-29-[address] Chema Perry Work Phone: [facility] Work Phone: Start: 05-29-2023 End: 05-29-[address] Chema Perry Work Phone: [facility]-Cardiovascula r Services Work Phone: Start: 05-23-2023 Refill Laisha Lizarraga APRN.[employer] Work Phone: Neurology Start: 05-22-2023 End: 05-22-[address] Chema Perry Work Phone: [facility] Work Phone: Start: 05-12-2023 End: 05-12-[address] Chema Perry Work Phone: [facility] Work Phone: Start: 05-06-2023 End: 05-06-[address] Chema Perry Work Phone: [facility] Work Phone: Start: 05-06-2023 End: 05-06-[address] Chema Perry Work Phone: [facility]-Speech Therapy Work Phone: Start: 04-22-2023 End: 04-22-[address] Chema Perry Work Phone: [facility]-Laboratory Work Phone: Start: 04-08-2023 ambulatory Laisha Zia STEPHENS Work Phone: Neurology Comment on above: Tolerating Donepezil Start: 04-07-2023 End: 04-07-[address] Chema Perry Work Phone: [facility]-Pulmonary Medicine [facility] Work Phone: Start: 04-02-2023 End: 04-02-2023 Emergency department patient visit Dr. Chema Perry Work Phone: [facility]-Emergency Department Work Phone: Start: 04-01-[address] Chema Perry Work Phone: [facility]-Speech Therapy Work Phone: Start: 03-24-2023 End: 03-24-[address] Chema Perry Work Phone: [facility] Work Phone: Start: 02-12-2023 End: 02-12-[address] Chema Perry Work Phone: [facility] Work Phone: Start: 02-12-[address] Chema Perry Work Phone: [facility]-Occupational Therapy Work Phone: Start: 02-06-2023 End: 02-06-[address] Chema Perry Work Phone: [facility] Work Phone: Start: 02-06-2023 End: 02-06-[address] Chema Perry Work Phone: [facility]-Sleep Lab Start: 02-04-[address] Chema Perry Work Phone: [facility]-Speech Therapy Start: 01-29-2023 End: 01-29-[address] Chema Perry Work Phone: [facility] [place] Start: 01-29-2023 End: 01-29-[address] Chema Perry Work Phone: [facility] Work Phone: Start: 01-29-2023 End: 01-29-[address] Chema Peryr Work Phone: [facility]-Occupational Therapy Start: 01-20-2023 End: 01-20-[address] Chema Perry Work Phone: [facility]-Now Clinic Start: 01-17-2023 End: 01-17-[address] Chema Perry Work Phone: [facility] Radiology Start: 01-17-[address] Chema Perry Work Phone: [facility]-Occupational Therapy Start: 01-15-2023 End: 01-15-[address] Chema Perry Work Phone: [facility] Work Phone: Start: 01-15-2023 End: 01-15-[address] Chema Perry Work Phone: [facility] Start: 01-10-2023 End: 01-10-[address] Chema Perry Work Phone: [facility] Work Phone: Start: 01-10-2023 End: 01-10-[address] Chema Perry Work Phone: [facility]-Outpatient Breast Imaging Start: 01-08-2023 End: 01-08-[address] Chema Perry Work Phone: [facility] Start: 01-02-2023 End: 01-02-[address] Chema Perry Work Phone: [facility] Start: 01-01-2023 End: 01-01-[address] Chema Perry Work Phone: [facility]-Pulmonary Medicine [facility] Start: 12-25-2022 Non-patient / Non-visit Dr. Chema Perry Work Phone: [facility] Start: 12-25-2022 End: 12-25-[address] Chema Perry Work Phone: [facility]-Cardiovascula r Services Start: 12-25-2022 End: 12-25-[address] Chema Perry Work Phone: [facility]Now Clinic Start: 12-11-[address] Chema Perry Work Phone: [facility]-Physical Therapy Start: 12-04-2022 End: 12-04-2022 Subsequent hospital visit by physician [employer] Bl (Lg Bore/3t) Radiology Comment on above: 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) [F03.90] Start: 12-03-2022 End: 12-03-[address] Chema Perry Work Phone: [facility] Work Phone: Start: 12-03-2022 End: 12-03-[address] Chema Perry Work Phone: [facility]-Laboratory Start: 11-23-2022 End: 11-23-[address] Chema Perry Work Phone: [facility] Start: 11-13-2022 End: 11-13-2022 Patient encounter procedure Laisha Zia STEPHENS Work Phone: Neurology Comment on above: 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) (Primary Dx); History of complex partial epilepsy; Gait instability; Multiple falls; Physical deconditioning; Depression, unspecified depression type; Anxiety; Dizziness; Imbalance Start: 10-23-2022 End: 10-23-[address] Chema Perry Work Phone: [facility] Start: 10-21-2022 End: 10-21-[address] Chema Perry Work Phone: [facility] Start: 10-16-2022 End: 10-16-2022 Emergency department patient visit Dr. Chema Perry Work Phone: [facility]-Emergency Department Start: 10-14-[address] Che[facility] Start: 09-21-2022 End: 09-21-[address] Chema Perry Work Phone: [facility] Work Phone: Start: 09-21-2022 End: 09-21-[address] Chema Perry Work Phone: [facility] Start: 09-16-[address] Chema Perry [facility] Start: 09-06-2022 End: 09-06-[address] Chema Perry Work Phone: [facility] Work Phone: Start: 09-06-2022 End: 09-06-[address] Chema Perry Work Phone: [facility] Start: 07-30-2022 End: 07-30-[address] Chema Perry Work Phone: [facility] Work Phone: Start: 07-30-2022 End: 07-30-[address] Chema Perry Work Phone: [facility]-Speech Therapy Start: 07-24-2022 End: 07-24-[address] Chema Perry Work Phone: [facility] Start: 07-22-2022 End: 07-22-[address] Arun Ramos Work Phone: [facility] Start: 07-22-[address] Arun Ramos [facility] Start: 07-18-2022 End: 07-18-[address] Arun Ramos Work Phone: [facility] Radiology Start: 07-13-2022 End: 07-13-2022 Emergency department patient visit Dr. Arun Ramos Work Phone: [facility]-Emergency Department Start: 07-12-2022 End: 07-12-[address] Arun Ramos Work Phone: [facility] Work Phone: Start: 07-12-2022 End: 07-12-[address] Arun Ramos Work Phone: [facility] Start: 07-08-2022 Non-patient / Non-visit Dr. Arun Ramos Work Phone: [facility] Internal Medicine Start: 07-07-2022 End: 07-07-[address] Arun Ramos Work Phone: [facility] Start: 07-05-[address] Arun Ramos Work Phone: [facility]-Physical Therapy Start: 07-04-2022 End: 07-04-[address] Arun Ramos Work Phone: [facility] [place] Start: 06-25-2022 End: 06-25-[address] Arun Ramos [facility] Start: 06-07-2022 End: 06-07-[address] Arun Ramos Work Phone: [facility] Start: 05-13-2022 End: 05-13-[address] Arun Ramos Work Phone: [facility] [place] Start: 04-25-2022 End: 04-25-[address] Arun Ramos Work Phone: [facility] [place] Start: 04-11-2022 End: 04-11-2022 Patient encounter procedure Laisha Lizarraga APRN.CNP Work Phone: Neurology Comment on above: Dementia without behavioral disturbance, unspecified dementia type (HCC) (Primary Dx); History of complex partial epilepsy; Gait instability; Multiple falls; Physical deconditioning; Cognitive communication deficit Start: 03-27-2022 End: 03-27-[address] Arun Ramos [facility] Start: 03-21-2022 End: 03-21-[address] Arun Ramos Work Phone: [facility] [place] Start: 03-20-2022 Non-patient / Non-visit Dr. Arun Ramos Work Phone: [facility] Internal Medicine Start: 03-15-2022 End: 03-15-2022 Emergency department patient visit Dr. Arun Ramos Work Phone: [facility]-Emergency Department Start: 03-15-[address] Arun Ramos [facility] Start: 03-08-[address] Arun Ramos [facility] Phone: [facility] Start: 03-07-2022 End: 03-07-[address] Arun Ramos [facility] [place] [facility] 3rd Flr Start: 02-28-[address] Arun Ramos [facility] Start: 02-25-2022 End: 02-25-[address] Arun Ramos [facility] [place] [facility] Fl[facility] Start: 02-15-2022 End: 02-15-2022 Emergency department patient visit Dr. Arun Ramos Work Phone: [facility]-Emergency Department Start: 02-14-2022 End: 02-14-[address] Arun Ramos [facility] 3rd Flr Start: 02-13-[address] Arun Ramos [facility] Start: 02-07-2022 End: 02-07-[address] Arun Ramos Work Phone: [facility]-Pulmonary Services/Neurology Start: 02-07-2022 Non-patient / Non-visit Dr. Arun Ramos Work Phone: [facility] Start: 02-06-[address] Arun Ramos Work Phone: [facility]-Physical Therapy Start: 01-23-2022 End: 01-23-2022 Patient encounter procedure Mitchel Muse MD Work Phone: Neurology Comment on above: Dementia without behavioral disturbance, unspecified dementia type (HCC) (Primary Dx); History of complex partial epilepsy; Gait instability; Multiple falls; Depression, unspecified depression type; Anxiety; Physical deconditioning Start: 01-10-2022 End: 01-10-[address] Arun Ramos Work Phone: [facility] Medicine [facility] Start: 11-26-2021 End: 11-26-[address] Arun Ramos Work Phone: [facility] Start: 11-23-2021 End: 11-23-[address] Arun Ramos Work Phone: [facility] Start: 11-23-2021 End: 11-23-[address] Arun Ramos Work Phone: [facility]-Laboratory, y Office [address] [place] [address] Start: 11-13-2021 End: 11-13-2021 Patient encounter procedure Laisha Lizarraga APRN.CNP Work Phone: Neurology Comment on above: Dementia without behavioral disturbance, unspecified dementia type (HCC) (Primary Dx); History of complex partial epilepsy; Gait instability; Multiple falls; Depression, unspecified depression type; Anxiety; Physical deconditioning Start: 11-07-2021 End: 11-07-[address] Arun Ramos Work Phone: [facility] Start: 10-08-2021 Non-patient / Non-visit Dr. Arun Ramos Work Phone: [facility] Inpatient Physicians Start: 10-07-2021 Non-patient / Non-visit Dr. Arun Ramos Work Phone: [facility] Phys[facility] Start: 10-06-2021 Non-patient / Non-visit Dr. Arun Ramos Work Phone: [facility] Inpatient Physicians Start: 10-05-2021 Non-patient / Non-visit Dr. Arun Ramos Work Phone: [facility] Inpatient Physicians Start: 10-05-2021 End: 10-08-2021 Evaluation and management of inpatient Dr. Arun Ramos [facility] Phone: [facility] Start: 09-04-2021 End: 10-04-2021 Evaluation and management of inpatient Dr. Arun Ramos Work Phone: [facility]-Transitional Care Unit Start: 09-04-2021 Non-patient / Non-visit Dr. Arun Ramos Work Phone: [facility] Inpatient Physicians Start: 09-03-2021 Non-patient / Non-visit Dr. Arun Ramos Work Phone: [facility] Inpatient Physicians Start: 09-02-2021 Non-patient / Non-visit Dr. Arun Ramos Work Phone: [facility] Inpatient Physicians Start: 09-02-2021 End: 09-04-2021 Evaluation and management of inpatient Dr. Arun Ramos [facility] Phone[facility] Start: 09-01-2021 End: 09-01-2021 Emergency department patient visit Dr. Arun Ramos Work Phone: [facility]-Emergency Department Start: 08-13-[address] Arun Ramos Work Phone: [facility] Start: 08-09-2021 End: 08-09-[address] Arun Ramos Work Phone: [facility]-Pulmonary Medicine [facility] Start: 02-06-[address] Arun Ramos Work Phone: [facility] Procedures Date Procedure Procedure Detail Performing Clinician Start: 02-03-2025 CT of upper limb without contrast Dr. Sulema Perry MD Work Phone: Start: 02-03-2025 Plain X-ray of shoulder Dr. Chema Perry MD Work Phone: Start: 11-15-2024 Antibody screen ANILA DE PAZ Comment on above: Order Comment: Specimen Type: BLOOD SPEC IMENOrdering Facility: [facility] Address: [address] [place] [address] Performed By: #### T SCR ####CC MAIN BLOOD BANKCLIA [id number] [address] [place] Start: 11-09-2024 X-ray of chest, PA and lateral views Dr. Susan Emery DO Work Phone: Start: 11-01-2024 Visual field xm uni/bi w/interp extended exam Humza Camejo MD Work Phone: Start: 10-18-[address] Chema Perry MD Work Phone: Start: 09-18-2024 CT of chest without contrast Dr. Chema Perry MD Work Phone: Start: 09-14-2024 Antibody screen ANILA DE PAZ Comment on above: Order Comment: Specimen Type: BLOOD SPEC IMENOrdering Facility: [facility] Address: [address] [place] [address] Performed By: #### T SCR30 ####CC MAIN BLOOD BANKCLIA [id number] [place] [address] [place] Start: 09-13-2024 Esophagoscp rig [...] rendering w/interp&postproc diff work station Laisha Lizarraga APRN.[employer] Work Phone: Start: 12-04-2022 Mri brain brain [...] MRI of joint of lower extremity Dr. iD Perry Work Phone: Start: 07-18-2022 Plain X-ray of shoulder Dr. Arun Ramos Work Phone: Start: 07-13-2022 Pelvis X-ray Dr. Arun Ramos Work Phone: Start: 07-13-2022 Plain x-ray of [...] angiography of chest with contrast Dr. Arun Rmaos Work Phone: Start: 10-05-2021 Plain chest X-ray Dr. Arun Ramos Work Phone: Start: 10-05-2021 SARS-CoV-2 Antigen (Rapid) Dr. Arun Ramos Work Phone: Start: 09-26-2021 Plain chest X-ray Dr. Arun Ramos Work Phone: Start: 09-19-2021 SARS-CoV-2 Antigen (Rapid) Dr. Arun Ramos Work Phone: Start: 09-18-2021 Plain chest X-ray Dr. Arun Ramos Work Phone: Start: 09-18-[address] Arun Ramos Work Phone: Start: 09-13-2021 Plain chest [...] DTaP,Tdap,Td Vaccine (4 - Td or Tdap) [facility] Start: 01-05-2029 Urine microalbumin profile DTaP,Tdap,Td Vaccine (3 - Td or Tdap) [facility] Start: 11-17-2027 Diabetes Screening Diabetes Screening [facility] Start: 09-23-2027 Diabetes Screening Diabetes Screening [facility] Start: 09-14-2027 Diabetes Screening Diabetes Screening [facility] Start: 08-09-2027 Diabetes Screening Diabetes Screening [facility] Start: 12-20-2025 End: 12-20-2025 Patient encounter procedure 12/20/2025 3:30 PM EDT Office Visit Cardiology [address] [place] [address] Joan Guadalupe APRN.[employer] [address] [place] [address] 1yr follow up Cardiology Comment on above: 1yr follow up Start: 11-16-2025 End: 04-25-2026 OCT OPTIC NERVE CIRRUS OU (BOTH EYES) OCT OPTIC NERVE CIRRUS OU (BOTH EYES) [facility] Imaging Routine Primary open angle glaucoma (POAG) of both eyes, severe stage Expected: 11/16/2025, Expires: 04/25/2026 [facility] Work Phone: Comment on above: Expected: 11/16/2025, Expires: Start: 09-14-2025 Hepatitis B surface antibody level LDL Cholesterol [facility] Start: 08-17-2025 End: 01-24-2026 VISUAL FIELD 24-2 OU (BOTH EYES) VISUAL FIELD 24-2 OU (BOTH EYES) [facility] Imaging Routine Primary open angle glaucoma (POAG) of both eyes, severe stage Expected: 08/17/2025, Expires: 01/24/2026 [facility] Work Phone: Comment on above: Expected: 08/17/2025, Expires: Start: 05-10-2025 End: 05-10-2025 Patient encounter procedure 05/10/2025 11:00 AM EDT Office Visit Neurology [address] [place], [place] [id number] Denice Jacobs PA-C [address] [place] [address] 6 month follow up Neurology Comment on above: 6 month follow up Start: 03-24-2025 End: 03-24-2025 Patient encounter procedure 03/24/2025 2:30 PM EDT Office Visit Neurology [address] [address] Laisha Lizarraga, ROSMERY.[employer] [address] [place] [address] follow up- no moca Neurology Comment on above: follow up- no moca Start: 02-17-2025 End: 02-17-2025 Patient encounter procedure 02/17/2025 1:00 PM EDT Office Visit Neurology [address] [place] [address] Dimitry Maguire MD [address] [place], [place] [id number] 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] Neurology Comment on above: Ulnar neuropathy of right upper extremit y [G56.21] Start: 02-03-2025 [facility] Start: 02-01-2025 End: 02-01-2025 Patient encounter procedure 02/01/2025 1:30 PM EDT Office Visit Cardiology [address] [place] [address] [place] [address] [place] [address] 6mo follow up Cardiology Comment on above: 6mo follow up Start: 01-27-2025 End: 01-27-2025 Patient encounter procedure 01/27/2025 2:30 PM EDT Office Visit Vasculary Surgery [address] [place], [place] [phone] Carotid bruit, unspecified laterality [R09.89] Vasculary Surgery Comment on above: Carotid bruit, unspecified laterality [R 09.89] Start: 01-05-2025 End: 01-05-2025 Patient encounter procedure 01/05/2025 3:30 PM EDT Office Visit [facility] Ophthalmology [id number] [place] [id number] Estelle Hodges MD [address] [address] Return in about 2 months (around 01/01/2025) for OCT OU. Ophthalmology Comment on above: Return in about 2 months (around 01/02/20 25) for OCT OU. 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, psychotic disturbance, mood disturbance, or anxiety Neurology Comment on above: 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, psychotic disturbance, mood disturbance, or anxiety Start: 12-20-2024 End: 12-20-2024 Patient encounter procedure 12/20/2024 2:00 PM EDT Office Visit Cardiology [address] [place] [address] [place] [address] [place] [address] discuss medication/edema Cardiology Comment on above: discuss medication/edema Start: 12-09-2024 End: 12-09-2024 Patient encounter procedure 12/09/2024 1:40 PM EDT Office Visit Spine [employer] [address] [place] [address] Luh Dean PALatrice [address] [place] [id number] Degeneration of intervertebral disc of lumbar region, unspecified whether pain present [M51.369]; Left leg paresthesias [R20.2]; Right leg paresthesias [R20.2] [facility] [employer] [facility] Comment on above: Degeneration of intervertebral disc of l umbar region, unspecified whether pain present [M51.369]; Left leg paresthesias [R20.2]; Right leg paresthesias [R20.2] Start: 12-03-2024 End: 12-03-2024 Patient encounter procedure 12/03/2024 11:20 AM EDT Office Visit General Surgery [address] [place] [id number] Anila De Paz MD [address] [address] Follow-up/ LPEHRLuis franchesca 2.3.25 General Surgery Comment on above: Follow-up/ LPEHR, Lap franchesca 2.3.25 Start: 11-26-2024 End: 11-26-2024 Patient encounter procedure 11/26/2024 4:15 PM EDT OT/PT/Speech Visit [facility] Outpatient Occupational Therapy [address] [place] [address], OTR/L [address] [place] [address] 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, 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] -- Recheck [facility] Comment on above: 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, R29.898] -- Recheck Start: 11-19-2024 End: 11-19-2024 Patient encounter procedure 11/19/2024 4:15 PM EDT OT/PT/Speech Visit [facility]ational Therapy [address] [place] [address], OTR/L [address] [place] [address] 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, R29.898] [facility] Comment on above: 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, R29.898] Start: 11-15-2024 End: 02-14-2025 Amylase [Enzymatic activity/volume] in Serum or Plasma AMYLASE Lab Routine Generalized abdominal pain Diarrhea, unspecified type Expected: 11/15/2024, Expires: 02/14/2025 [facility] Comment on above: Expected: 11/15/2024, Expires: Start: 11-15-2024 End: 02-15-2025 CBC W Auto Differential panel - Blood COMPLETE BLOOD COUNT AND DIFFERENTIAL Lab Routine Generalized abdominal pain Diarrhea, unspecified type Expected: 11/15/2024, Expires: 02/15/2025 [facility] Comment on above: Expected: 11/15/2024, Expires: Start: 11-15-2024 End: 02-15-2025 Comprehensive metabolic 2000 panel - Serum or Plasma COMPREHENSIVE METABOLIC PANEL Lab Routine Generalized abdominal pain Diarrhea, unspecified type Expected: 11/15/2024, Expires: 02/15/2025 [facility] Work Phone: Comment on above: Expected: 11/15/2024, Expires: Start: 11-15-2024 End: 02-14-2025 Lipase [Enzymatic activity/volume] in Serum or Plasma LIPASE Lab Routine Generalized abdominal pain Diarrhea, unspecified type Expected: 11/15/2024, Expires: 02/14/2025 [facility] Comment on above: Expected: 11/15/2024, Expires: Start: 11-12-2024 End: 11-12-2024 Patient encounter procedure 11/12/2024 3:30 PM EDT OT/PT/Speech Visit [facility] [address] [place] [address], OTR/L [address] [place] [address] 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, R29.898] [facility] Comment on above: 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, R29.898] Start: 11-11-2024 End: 11-11-2024 Patient encounter procedure Cat Scan Comment on above: Nausea [R11.0] Start: 11-10-2024 End: 04-19-2025 OCT OPTIC NERVE CIRRUS OU (BOTH EYES) OCT OPTIC NERVE CIRRUS OU (BOTH EYES) [facility] Imaging Routine Primary open angle glaucoma (POAG) of both eyes, severe stage Expected: 11/10/2024, Expires: 04/19/2025 [facility] Work Phone: Comment on above: Expected: 11/10/2024, Expires: Start: 11-05-2024 End: 11-05-2024 Patient encounter procedure 11/05/2024 2:00 PM EDT OT/PT/Speech Visit [facility] [address] [place] [address], OTR/L [address] [place] [address] 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, R29.898] [facility] Comment on above: 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, R29.898] Start: 11-03-2024 End: 11-03-2024 Patient encounter procedure Neurology Comment on above: Three month follow up had EMG, neuropathy, frequent falls Start: 11-02-2024 End: 02-01-2025 CREATININE BLD CREATININE BLD Lab Routine Nausea Generalized abdominal pain Expected: 11/02/2024, Expires: 02/01/2025 [facility] Comment on above: Expected: 11/02/2024, Expires: Start: 11-01-2024 End: 11-01-2024 Patient encounter procedure 11/01/2024 2:45 PM EDT Office Visit [facility] Ophthalmology [address] [place] [address] Humza Camejo MD [address] [place] [address] Return in about 3 months [...] AM EST Office Visit General Surgery [address] [place] [address] Anila De Paz MD [address] [place] [address] post op 2 wks/ lap paraesophageal hernia repair 09/20/2024 General Surgery Comment on above: post op 2 wks/ lap paraesophageal hernia repair 09/20/2024 Start: 10-07-2024 End: 10-07-2024 Patient encounter procedure 10/07/2024 1:45 PM EST Office Visit Neurology [address] [phone] Laisha Lizarraga APRN.[employer] [address] [place] [address] follow up- no moca Neurology Comment on above: follow up- no moca Start: 09-20-2024 End: 09-20-2024 Admission to same day surgery center 09/20/2024 12:35 PM EST - 09/20/2024 5:55 PM EST Surgery Admitting [address] [place] [address] Anila De Paz MD [address] [place], [place] [id number] LAPAROSCOPIC RPR PARAESOHAGEAL HERNIA W/ FUNDOPLASTY +/- [...] 12:35 PM EST Hospital Encounter Admitting [address] [place] [address] Anila De Paz MD [address] [place] [address] Hiatal hernia [K44.9], Epigastric pain [R10.13], Nausea and vomiting, unspecified vomiting type [R11.2], Pre-op exam [Z01.818] Admitting Comment on above: Hiatal hernia [K44.9], Epigastric pain [ R10.13], Nausea and vomiting, unspecified vomiting type [R11.2], Pre-op exam [Z01.818] Start: 09-18-2024 [facility] Start: 09-15-2024 End: 09-15-2024 Anesthesia consultation 09/15/2024 8:00 AM EST PAT Pre Anesthesia [address] [place] [address] 2, Pacc Main [address] [place] [address] preop/ lap hernia repair 09/20/2024 Pre Anesthesia Comment on above: preop/ lap hernia repair 09/20/2024 Start: 09-14-2024 End: 09-14-2024 ambulatory 09/14/2024 3:00 PM EST Results Only [facility] Station [address] [place] [address] Hiatal hernia [K44.9]. Epigastric pain [R10.13]. Nausea and vomiting, unspecified vomiting type [R11.2]. Pre-op exam [Z01.818] [facility] Comment on above: Hiatal hernia [K44.9]. Epigastric pain [ R10.13]. Nausea and vomiting, unspecified vomiting type [R11.2]. Pre-op exam [Z01.818] Start: 09-14-2024 End: 09-14-2024 Anesthesia consultation 09/14/2024 2:00 PM EST PAT Pre Anest[facility] [address] [facility] [place] [address] 1, Pacc Rafita [address] [facility] [place] [address] preop/ lap hernia repair 09/20/2024 Pre Anesthesia Comment on above: preop/ lap hernia repair 09/20/2024 Start: 09-14-2024 End: 12-14-2024 LIPID PANEL, NONFASTING [facility] Work Phone: Comment on above: Expected: 09/14/2024, Expires: Start: 09-13-2024 End: 09-13-2024 Patient encounter procedure Gastroenterology Comment on above: Dilated pancreatic duct [K86.89], severe dilation of CBD Start: 09-10-2024 End: 09-10-2024 ambulatory Neurology Comment on above: R PN r R PN Start: 09-07-2024 End: 09-07-2024 Patient encounter procedure 09/07/2024 9:30 AM EST Appointment Radiology [address] [place] [address] Procedure: MRI PANC/MAGNOLIA WO/W IVCON Radiology Comment on above: Procedure: MRI PANC/MAGNOLIA WO/W IVCON Start: 09-03-2024 End: 09-03-2025 CBC W Auto Differential panel - Blood COMPLETE BLOOD COUNT AND DIFFERENTIAL Lab Routine Hiatal hernia Epigastric pain Nausea and vomiting, unspecified vomiting type Pre-op exam Expected: 09/03/2024, Expires: 09/03/2025 [facility] Comment on above: Expected: 09/03/2024, Expires: Start: 09-03-2024 End: 09-03-2025 Comprehensive metabolic 2000 panel - Serum or Plasma COMPREHENSIVE METABOLIC PANEL Lab Routine Hiatal hernia Epigastric pain Nausea and vomiting, unspecified vomiting type Pre-op exam Expected: 09/03/2024, Expires: 09/03/2025 [facility] Work Phone: Comment on above: Expected: 09/03/2024, Expires: Start: 09-03-2024 End: 09-03-2025 CONFIRM BLOOD TYPE CONFIRM BLOOD TYPE Blood Bank Routine Hiatal hernia Epigastric pain Nausea and vomiting, unspecified vomiting type Pre-op exam Expected: 09/03/2024, Expires: 09/03/2025 [facility] Comment on above: Expected: 09/03/2024, Expires: Start: 09-03-2024 End: 09-03-2024 Patient encounter procedure 09/03/2024 2:00 PM EST Office Visit General Surgery [address] [place] [address] Anila De Paz MD [address] [place], [place] [id number] Follow-up/ Pre-op PEHR/ completed EGD, CT ABD, [...] type Pre-op exam Expected: 09/03/2024, Expires: 12/03/2024 [facility] Comment on above: Expected: 09/03/2024, Expires: Start: 08-25-2024 End: 08-25-2024 Patient encounter procedure 08/25/2024 3:30 PM EST Office Visit Vascular Surgery [address] [address] Carotid bruit, unspecified laterality [R09.89] Vascular Surgery Comment on above: Carotid bruit, unspecified laterality [R 09.89] Start: 08-18-2024 Advance Directive Discussion Advance Directive Discussion [facility] Start: 08-09-2024 End: 08-09-2024 ambulatory 08/09/2024 4:00 PM EST Results Only [facility] [address] [place] [address] [facility] Start: 08-06-2024 End: 11-05-2024 CBC panel - Blood by Automated count COMPLETE BLOOD COUNT Lab Routine Neuropathy Expected: 08/06/2024, Expires: 11/05/2024 [facility] Comment on above: Expected: 08/06/2024, Expires: Start: 08-06-2024 End: 11-05-2024 Cobalamin (Vitamin B12) [Mass/volume] in Serum or Plasma VITAMIN B12 Lab Routine Neuropathy Expected: 08/06/2024, Expires: 11/05/2024 [facility] Comment on above: Expected: 08/06/2024, Expires: Start: 08-06-2024 End: 11-05-2024 Comprehensive metabolic 2000 panel - Serum or Plasma COMPREHENSIVE METABOLIC PANEL Lab Routine Neuropathy Expected: 08/06/2024, Expires: 11/05/2024 [facility] Comment on above: Expected: 08/06/2024, Expires: Start: 08-06-2024 End: 11-05-2024 PROTEIN ELECTROPHORESIS SERUM W/INTERP PROTEIN ELECTROPHORESIS SERUM W/INTERP Lab Routine Paresthesia of both feet Expected: 08/06/2024, Expires: 11/05/2024 [facility] Comment on above: Expected: 08/06/2024, Expires: Start: 08-06-2024 End: 11-05-2024 Pyridoxine [Mass/volume] in Serum or Plasma VITAMIN B6/PYRIDOXIN Lab Routine Neuropathy Expected: 08/06/2024, Expires: 11/05/2024 [facility] Comment on above: Expected: 08/06/2024, Expires: Start: 08-06-2024 End: 11-05-2024 VITAMIN B1 (THIAMINE), WHOLE BLOOD VITAMIN B1 (THIAMINE), WHOLE BLOOD Lab Routine Neuropathy Expected: 08/06/2024, Expires: 11/05/2024 [facility] Comment on above: Expected: 08/06/2024, Expires: Start: 08-06-2024 End: 08-06-2024 Patient encounter procedure 08/06/2024 10:00 AM EST Office Visit Neurology [address] [place] [address] [place] [phone] Denice Jacobs PA-C [address] [place], [place] [id number] Paresthesia of both feet [R20.2] Neurology Comment on above: Paresthesia of both feet [R20.2] Start: 08-03-2024 End: 08-03-2024 Patient encounter procedure 08/03/2024 3:30 PM EST Office Visit Cardiology [address] [place] [address] [place] [address] [place] [address] H/O acute myocardial infarction [I25.2]; Cardiomyopathy, unspecified type (HCC) [I42.9]; Pre-op evaluation [Z01.818] Cardiology Comment on above: H/O acute myocardial infarction [I25.2]; Cardiomyopathy, unspecified type (HCC) [I42.9]; Pre-op evaluation [Z01.818] Start: 08-02-2024 End: 08-02-2024 Patient encounter procedure 08/02/2024 2:15 PM EST Office Visit [facility] Ophthalmology [address] [place] [address] Humza Camejo MD [address] [place] [address] Return in about 3 months (around 08/02/2024). Ophthalmology Comment on above: Return in about 3 months (around 024). Start: 07-21-2024 End: 07-21-2024 Patient encounter procedure Gastroenterology Comment on above: EGD MAC Start: 07-16-2024 End: 07-16-2024 Anesthesia consultation 07/16/2024 3:00 PM EST PAT Pre Anesthesia [address] [place] [address] 1, Pacc Rafita [address] [place] [address] pre op 07/21 Pre Anesthesia Comment on above: pre op 07/21 Start: 07-09-2024 End: 07-09-2024 Patient encounter procedure 07/09/2024 11:20 AM EST Office Visit Cardiology [address] [place] [address] H/O acute myocardial infarction [I25.2]; Cardiomyopathy, unspecified type (HCC) [I42.9]; Pre-op evaluation [Z01.818] Cardiology Comment on above: H/O acute myocardial infarction [I25.2]; Cardiomyopathy, unspecified type (HCC) [I42.9]; Pre-op evaluation [Z01.818] Start: 07-01-2024 End: 07-01-2024 Patient encounter procedure 07/01/2024 1:45 PM EST Office Visit Neurology [address] [address] Laisha Lizarraga, ROSMERY.[employer] [address] [place] [address] F/U Neurology Comment on above: F/U Start: 06-18-2024 End: 09-17-2024 CREATININE BLD CREATININE BLD Lab Routine Hiatal hernia Expected: 06/18/2024, Expires: 09/17/2024 [facility] Comment on above: Expected: 06/18/2024, Expires: Start: 06-18-2024 End: 06-18-2024 Patient encounter procedure General Surgery Comment on above: New consult pt of Dr Squires Large Hiata l hernia on recent CT Gerd, frail, needs EGD Hiatal Hernia referr al from Dr. Squires/ HX: TIA, seizures, Dementia, asthma, MA, HTN, HLD, DVT, CA, GERD, SX: VHR, appy, Frail / CT ABD: R inguinal hernia (stable, LARGE hiatal hernia, dilated bile duct / NEEDS: EGD Start: 06-04-2024 End: 06-04-2024 Patient encounter procedure 06/04/2024 9:50 AM EDT Office Visit General Surgery [address] [phone] Laisha Sheppard MD [address] [place] [address] Hiatal hernia [K44.9] General Surgery Comment on above: Hiatal hernia [K44.9] Start: 05-17-2024 End: 05-17-2024 Patient encounter procedure 05/17/2024 3:00 PM EDT Office Visit General Surgery [address] [place] [address] Susan Squires MD [address] [place], [place] [phone] hernia General Surgery Comment on above: hernia Start: 05-03-2024 End: 05-03-2024 Patient encounter procedure 05/03/2024 2:00 PM EDT Office Visit [facility] Ophthalmology [address] [place] [address] Humza Camejo MD [address] [place] [address] Return in about 6 months (around 04/28/2024). Ophthalmology Comment on above: Return in about 6 months (around 04/28/20 24). Start: 04-18-2024 Covid-19 Vaccine () Covid-19 Vaccine () [facility] Start: 04-18-2024 Covid-19 Vaccine () Covid-19 Vaccine () [facility] Start: 04-18-2024 Influenza vaccination Influ[facility] Start: 03-25-2024 End: 03-25-2024 Patient encounter procedure 03/25/2024 1:45 PM EDT Office Visit Neurology [address] [address] Laisha Lizarraga, [employer]ERY[employer] [address] [place] [address] [facility] Follow Up Neurology Comment on above: [facility] Follow Up Start: 08-18-2023 Advance Directive Discussion Advance Directive Discussion [facility] Start: 05-08-2023 Diabetes Screening Diabetes Screening [facility] Start: 04-18-2023 Covid-19 Vaccine () Covid-19 Vaccine () [facility] Start: 04-18-2023 Covid-19 Vaccine () Covid-19 Vaccine () [facility] Start: 04-18-2023 Influenza vaccination [facility] Start: 01-17-2023 Radiography of thoracic spine Thoracic Spine 3 Views [facility] Start: 01-17-2023 XR Thoracic spine 3 Views [facility] Start: 01-17-2023 X-ray of lumbar spine, two or three views Lumbar Spine 2 or 3 Views [facility] Start: 01-17-2023 XR Lumbar spine 2 or 3 Views [facility] Start: 01-02-2023 Patient referral [facility] Work Phone: Start: 08-18-2022 ADVANCE DIRECTIVE DISCUSSION ADVANCE DIRECTIVE DISCUSSION [facility] Start: 04-18-2022 Influenza vaccination INFLUENZA (#1) [facility] Start: 02-25-2022 Methylmalonate measurement [facility] Work Phone: Start: 02-15-2022 [facility] Work Phone: Start: 09-22-2021 COVID-19 VACCINE (4 - Booster for Pfizer series) COVID-19 VACCINE (4 - Booster for Pfizer series) [facility] Start: 08-18-2021 ADVANCE DIRECTIVE DISCUSSION ADVANCE DIRECTIVE DISCUSSION [facility] Start: 07-17-2021 COVID-19 VACCINE (4 - Booster for Pfizer series) COVID-19 VACCINE (4 - Booster for Pfizer series) [facility] Start: 07-17-2021 COVID-19 VACCINE (4 - Pfizer series) COVID-19 VACCINE (4 - Pfizer series) [facility] Start: 12-01-2020 Screening for osteoporosis Bone Density Screening [facility] Start: 2017 RSV Vaccine (1 - 1-dose 75+ series) RSV Vaccine (1 - 1-dose 75+ series) [facility] Start: 2007 BONE DENSITY BONE DENSITY [facility] Start: 2007 Bone Density Screening Bone Density Screening [facility] Start: 2007 Pneumococcal Vaccine: 65+ (1 - PCV) Pneumococcal Vaccine: 65+ (1 - PCV) [facility] Start: 2007 PNEUMOCOCCAL: 65+ (1 - PCV) PNEUMOCOCCAL: 65+ (1 - PCV) [facility] Start: 2007 PNEUMOVAX AGE 65 AND OVER WITH 5YR LOOKBACK (#1) PNEUMOVAX AGE 65 AND OVER WITH 5YR LOOKBACK (#1) [facility] Start: 2002 RSV Vaccine (1 - 1-dose 60+ series) RSV Vaccine (1 - 1-dose 60+ series) [facility] Start: 1992 SHINGRIX VACCINE (1 of 2) SHINGRIX VACCINE (1 of 2) [facility] Start: 1987 DIABETES SCREEN DIABETES SCREEN [facility] Start: 1987 Diabetes Screening Diabetes Screening [facility] Start: 1987 Screening for malignant neoplasm of colon [facility] Start: 1961 Urine microalbumin profile [facility] Start: 1960 Hepatitis B surface antibody level LDL Cholesterol [facility] Start: 1960 Screening for malignant neoplasm of colon [facility] Bacteria identified in Urine by Culture Urine Culture [facility] Work Phone: End: 07-18-2025 CT Abdomen and Pelvis W contrast IV CT ABD/PEL W IVCON Radiology Routine Hiatal hernia 1 Occurrences starting 06/18/2024 until 07/18/2025 [facility] Comment on above: 1 Occurrences starting 06/18/2024 until 07/18/2025 End: 12-02-2025 CT Abdomen and Pelvis W contrast IV CT ABD/PEL W IVCON Radiology Routine Nausea 1 Occurrences starting 11/02/2024 until 12/02/2025 [facility] Work Phone: Comment on above: 1 Occurrences starting 11/02/2024 until 12/02/2025 CT Abdomen and Pelvi s W contrast IV CT ABD/PEL W IVCON Radiology Routine Nausea 11/11/2024 1:55 PM EDT [facility] Work Phone: End: 07-18-2025 CT Chest W contrast IV CT CHEST W IVCON Radiology Routine Hiatal hernia 1 Occurrences starting 06/18/2024 until 07/18/2025 [facility] Comment on above: 1 Occurrences starting 06/18/2024 until 07/18/2025 CT Chest W contrast IV CT CHEST W IVCON Radiology Routine Hiatal hernia 06/24/2024 3:12 PM EST [facility] Work Phone: ECG COMPLETE ECG COMPLETE ECG 08/03/2024 3:41 PM EST [facility] End: 06-18-2025 Echocardiography ECHO Cardiology Routine H/O acute myocardial infarction Cardiomyopathy, unspecified type (HCC) Pre-op evaluation 1 Occurrences starting 06/18/2024 until 06/18/2025 [facility] Work Phone: Comment on above: 1 Occurrences starting 06/18/2024 until 06/18/2025 End: 09-08-2025 EGD - THERAPEUTIC, EUS, OR TUBE INTERVENTIONS EGD - THERAPEUTIC, EUS, OR TUBE INTERVENTIONS Endoscopy Routine Dilated pancreatic duct 1 Occurrences starting 09/08/2024 until 09/08/2025 [facility] Work Phone: Comment on above: 1 Occurrences starting 09/08/2024 until 09/08/2025 End: 06-18-2025 EGD DIAGNOSTIC EGD DIAGNOSTIC Endoscopy Routine Hiatal hernia 1 Occurrences starting 06/18/2024 until 06/18/2025 [facility] Work Phone: Comment on above: 1 Occurrences starting 06/18/2024 until 06/18/2025 End: 08-06-2025 EMG(NEURO/NI) EMG(NEURO/NI) EMG Routine Neuropathy 1 Occurrences starting 08/06/2024 until 08/06/2025 [facility] Work Phone: Comment on above: 1 Occurrences starting 08/06/2024 until 08/06/2025 Lipid 1996 panel - S des or Plasma [facility] Work Phone: Lipid 1996 panel - S des or Plasma [facility] Measurement of respiratory function [facility] Methylmalonate measurement [facility] Work Phone: End: 10-03-2025 MR Biliary ducts and Pancreatic duct WO and W contrast IV MRI PANC/MAGNOLIA WO/W IVCON Radiology Routine Abnormal results of liver function studies 1 Occurrences starting 09/03/2024 until 10/03/2025 [facility] Work Phone: Comment on above: 1 Occurrences starting 09/03/2024 until 10/03/2025 End: 10-03-2025 MR Unspecified body region 3D post processing MRI 3D POST PROCESSING Radiology Routine Abnormal results of liver function studies 1 Occurrences starting 09/03/2024 until 10/03/2025 [facility] Comment on above: 1 Occurrences starting 09/03/2024 until 10/03/2025 End: 12-13-2023 MRI 3D POST PROCESSING MRI 3D POST PROCESSING Radiology Routine 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) 1 Occurrences starting 11/13/2022 until 12/13/2023 [facility] Work Phone: Comment on above: 1 Occurrences starting 11/13/2022 until 12/13/2023 End: 12-13-2023 MRI BRAIN W QUANT WO IVCON MRI BRAIN W QUANT WO IVCON Radiology Routine 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) 1 Occurrences starting 11/13/2022 until 12/13/2023 [facility] Work Phone: Comment on above: 1 Occurrences starting 11/13/2022 until 12/13/2023 NEUROMUSCULAR ULTRASOUND/NEUROLOGY NEUROMUSCULAR ULTRASOUND/NEUROLOGY Procedures Routine Ulnar neuropathy of right upper extremity Ordered: 11/03/2024 [facility] Work Phone: Comment on above: Ordered: 11/03/2024 Patient Education [facility] Work Phone: Patient referral [facility] Work Phone: Polysomnography [facility] REFER FOR ADMIT INTERVIEW REFER FOR ADMIT INTERVIEW Procedures Routine Hiatal hernia Epigastric pain Nausea and vomiting, unspecified vomiting type Pre-op exam Ordered: 09/03/2024 [facility] Comment on above: Ordered: 09/03/2024 US Breast limited [facility] US Carotid arteries [facility] End: 08-03-2025 US Carotid arteries - bilateral US CAROTID ARTERIES [facility] Vascular Lab Routine Carotid bruit, unspecified laterality 1 Occurrences starting 08/03/2024 until 08/03/2025 [facility] Work Phone: Comment on above: 1 Occurrences starting 08/03/2024 until 08/03/2025 End: 12-20-2025 US Carotid arteries - bilateral US CAROTID ARTERIES [facility] Vascular Lab Routine Carotid bruit, unspecified laterality 1 Occurrences starting 12/20/2024 until 12/20/2025 [facility] Work Phone: Comment on above: 1 Occurrences starting 12/20/2024 until 12/20/2025 [facility] Immunizations Immunization Date Immunization Notes Care Provider Tootie gaines 12-19-2024 TD(adult) unspecifie d formulation Young VALENCIA Work Phone: [facility] Work Phone: 12-19-2024 tetanus and diphther ia toxoids, adsorbed, preservative free, for adult use (5 Lf of tetanus toxoid and 2 Lf of diphtheria toxoid) Young VALENCIA Work Phone: [facility] 04-27-2024 Seasonal trivalent influenza vaccine, adjuvanted, preservative free Denice Jacobs PA-C Work Phone: [facility] 05-22-2023 influenza, injectabl e, quadrivalent, preservative free Dr. Chema Perry Work Phone: [facility] 05-22-2023 influenza virus vacc ine, unspecified formulation Laisha Lizarraga APRN.[employer] Work Phone: [facility] 05-20-2022 influenza (aIIV4) vaccine, age 65+ yr, quadrivalent, PF (FLUAD QUAD) Denice Jacobs PA-C Work Phone: [facility] 05-20-2022 influenza virus vacc ine, unspecified formulation Laisha Lizarraga APRN.[employer] Work Phone: [facility] 05-18-[address] Arun Ramos Work Phone: [facility] 05-18-2021 influenza-bonnie H5 v irus vaccine, unspecified formulation Denice Jacobs PA-C Work Phone: [facility] 04-10-2021 influenza, injectabl e, quadrivalent, contains preservative Denice Jacobs PA-C Work Phone: [facility] 02-17-2021 pneumococcal polysaccharide vaccine, 23 valent Denice Jacobs PA-C Work Phone: [facility] 02-17-[address] Arun Ramos Work Phone: [facility] Work Phone: 02-17-2021 pneumococcal vaccine , unspecified formulation Dr. Arun Ramos Work Phone: [facility] 10-28-2020 COVID-19 vaccine, ag e 12+ yr (PFIZER-BIONTECH - PURPLE TOP) Laisha Lizarraga DIGITAL RESEARCH ANALYST.[employer] Work Phone: [facility] 10-07-2020 COVID-19 vaccine, ag e 12+ yr (PFIZER-BIONTECH - PURPLE TOP) Laisha Lizarraga APRN.[employer] LABORER Work Phone: [facility] Work Phone: 05-10-2020 influenza virus vacc ine, unspecified formulation Denice Queener PA-C Work Phone: [facility] 07-13-2019 zoster vaccine recombinant Denice Queener PA-C Work Phone: [facility] 05-13-2019 influenza virus vacc ine, unspecified formulation Denice Queener PA-C Work Phone: [facility] 05-13-2019 influenza, high dose seasonal, preservative-free Denice Queener PA-C Work Phone: [facility] 05-13-2019 zoster vaccine recombinant Denice Queener PA-C Work Phone: [facility] 01-05-2019 tetanus toxoid, redu long diphtheria toxoid, and acellular pertussis vaccine, adsorbed Denice Queener PA-C Work Phone: [facility] 06-24-2018 pneumococcal polysaccharide vaccine, 23 valent Denice Queener PA-C Work Phone: [facility] 05-21-2018 influenza virus vacc ine, unspecified formulation Denice Queener PA-C Work Phone: [facility] 05-21-2018 Seasonal trivalent influenza vaccine, adjuvanted, preservative free Denice Queener PA-C Work Phone: [facility] 05-18-2018 influenza virus vacc ine, unspecified formulation Denice Queener PA-C Work Phone: [facility] 05-31-2017 influenza virus vacc ine, unspecified formulation Denice Queener PA-C Work Phone: [facility] 05-31-2017 influenza, high dose seasonal, preservative-free Denice Queener PA-C Work Phone: [facility] 05-31-2017 pneumococcal conjuga te vaccine, 13 valent Denice Queener PA-C Work Phone: [facility] 05-01-2016 influenza virus vacc ine, unspecified formulation Denice Queener PA-C Work Phone: [facility] 05-02-2015 influenza virus vacc ine, unspecified formulation Denice Queener PA-C Work Phone: [facility] 10-31-2014 pneumococcal conjuga te vaccine, 13 valent Denice Queener PA-C Work Phone: [facility] 05-13-2014 influenza virus vacc ine, unspecified formulation Denice Queener PA-C Work Phone: [facility] 05-13-2014 influenza, seasonal, injectable, preservative free Deince Queener PA-C Work Phone: [facility] 05-27-2013 influenza virus vacc ine, unspecified formulation Denice Queener PA-C Work Phone: [facility] 05-16-2011 influenza virus vacc ine, unspecified formulation Denice Queener PA-C Work Phone: [facility] 05-16-2011 influenza, seasonal, injectable, preservative free Denice Queener PA-C Work Phone: [facility] 06-18-2010 influenza virus vacc ine, unspecified formulation Denice Queener PA-C Work Phone: [facility] 06-18-2010 influenza, seasonal, injectable, preservative free Denice Queener PA-C Work Phone: [facility] 03-22-2010 pneumococcal polysaccharide vaccine, 23 valent Denice Queener PA-C Work Phone: [facility] 03-22-2010 tetanus and diphther ia toxoids, adsorbed, preservative free, for adult use (5 Lf of tetanus toxoid and 2 Lf of diphtheria toxoid) Denice Jacobs PA-C Work Phone: [facility] 03-22-2010 tetanus toxoid, redu long diphtheria toxoid, and acellular pertussis vaccine, adsorbed Denice Jacobs PA-C Work Phone: [facility] 06-06-2009 influenza virus vacc ine, unspecified formulation Denice Jacobs PA-C Work Phone: [facility] 06-06-2009 influenza, seasonal, injectable, preservative free Denice Jacobs PA-C Work Phone: [facility] Payers Date Payer Category Payer Self-pay [id number] 2019 Unknown [id number] 2015 Unknown [id number] .[id number] 2014 Private Health Insurance [facility] CHOICE [employer] [place] [id number] 2014-Present [phone] [address] [address] [place] [address] PPO [id number] .[id number] 2014 Private Health Insurance [id number] .[id number] 2007 Medicare MEDICARE MEDICAR E A AND B [id number] 2007-Present [phone] [address] [address] [place] [address] Medicare [id number] .[id number] 2007 Medicare [id number]. 1.13.159 .2.7.3.438207.315 2007 Medicare [id number] Medicare [id number] Medicare MEDICARE PART A B [id number] Unknown [id number] 2.16.840.1.003238.3.579 .2.462 Unknown [id number] 2.16.840.1.532979.3.579 .2.462 Unknown [id number] 2.16.840.1.636955.3.579 .2.462 Unknown [id number] 2.16.840.1.383894.3.579 .2.462 Unknown [id number] 2.840.1.437347.3.579 .2.462 Unknown [id number] 2.16.840.1.287890.3.579 .2.462 Unknown [id number] 2.16.840.1.898092.3.579 .2.462 Unknown [id number] 2.16.840.1.782375.3.579 .2.462 Unknown [id number] 2.16.840.1.026160.3.579 .2.462 Unknown [id number] 2.16.840.1.580301.3.579 .2.462 Unknown [id number] 2.16.840.1.077443.3.579 .2.462 Unknown [id number] 2.16.840.1.086854.3.579 .2.462 Unknown [id number] 2.16.840.1.368648.3.579 .2.462 Unknown [id number] 2.16.840.1.011152.3.579 .2.462 Unknown [id number] 2.16.840.1.100740.3.579 .2.462 Unknown [id number] 2.16.840.1.677074.3.579 .2.462 Unknown [id number] 2.16.840.1.066169.3.579 .2.462 Unknown [id number] 2.16.840.1.723284.3.579 .2.462 Unknown [id number] 2.16840.1.210423.3.579 .2.462 Unknown [id number] 2.16.840.1.848573.3.579 .2.462 Unknown [id number] 2.840.1.688008.3.579 .2.462 Unknown [id number] 2.840.1.085480.3.579 .2.462 Unknown [id number] 2.840.1.481783.3.579 .2.462 Unknown [id number] 2.840.1.445487.3.579 .2.462 Unknown [id number] 2.840.1.275736.3.579 .2.462 Unknown [id number] 2.840.1.038447.3.579 .2.462 Unknown [id number] 2.840.1.505440.3.579 .2.462 Unknown [id number] 2.840.1.808394.3.579 .2.462 Unknown [id number] 2.840.1.409881.3.579 .2.462 Unknown [id number] 2.840.1.405272.3.579 .2.462 Unknown [id number] 2.16.840.1.095416.3.579 .2.462 Unknown [id number] 2.840.1.992005.3.579 .2.462 Unknown [id number] 2.16840.1.510943.3.579 .2.462 Unknown [id number] 2.16840.1.559744.3.579 .2.462 Social History Date Type Detail Facility Start: 10-25-2020 End: 02-03-2025 Tobacco smoking status NHIS Never smoked tobacco [facility] Start: 10-25-2020 End: 07-25-2022 Tobacco use and exposure Smokeless tobacco non-user [facility] Start: 11-13-2021 End: 09-13-2024 Alcohol intake Current drinker of alcohol (finding) [facility] Start: 10-25-2020 History SDOH Alcohol Comment Weekly 1-2 drinks [facility] Start: 1940 Sex Assigned At Female C [facility] Start: 11-03-2021 End: 04-11-2022 Exposure to SARS-CoV-2 (event) Not sure [facility] Start: 11-07-2021 End: 11-12-2023 Tobacco smoking status NHIS Unknown if ever smoked [facility] Start: 10-07-2020 Spouse/ Signif icant Other [facility] Start: 03-14-2023 End: 11-16-2024 History of Social function [facility] Start: 03-14-2023 End: 11-16-2024 Tobacco use panel [facility] Adult Depression Screening Assessment 0 [facility] Start: 08-08-2020 Gender identity Identifies as female gender (finding) [facility] Start: 08-08-2020 Sexual orientation Heterosexual (fin ding) [facility] Start: 09-14-2024 End: 12-23-2024 Alcoholic beverage intake Ex-drinker (finding) [facility] Has the [employer], [employer], or water [employer] threatened to shut off services in your home in past 12Mo No [facility] Work Phone: (I/We) worried luke er (my/our) food would run out before (I/we) got money to buy more. Never true [facility] Start: 10-29-2024 End: 11-15-2024 Sex Female (finding) [facility] Functional Status Date Assessment Result Facility 11-17-2024 Are you deaf, or do you have serious difficulty hearing No 11/17/2024 12:03 PM Merlene Ojeda RN No [facility] 11-17-2024 Are you blind, or do you have serious difficulty seeing, even when wearing glasses No 11/17/2024 12:03 PM EDMerlene Rose, MAN No [facility] 11-17-2024 Do you have serious difficulty walking or climbing stairs No 11/17/2024 12:03 PM EDT Merlene Bailey, MAN No [facility] 11-17-2024 Do you have difficul ty dressing or bathing No 11/17/2024 12:03 PM EDT Merlene Bailey, MAN No [facility] 11-17-2024 Because of a physica l, mental, or emotional condition, do you have difficulty doing errands alone such as visiting a physician's office or shopping No 11/17/2024 12:03 PM EDMerlene Rose, MAN No [facility] 10-08-2021 Functional status Chair [facility] Work Phone: 10-02-2021 Functional status Activity Abili ty Unable to Assess [facility] Work Phone: 09-28-2021 Functional status Patient Activity Chair [facility] Work Phone: 09-04-2021 Functional status Bedside Commode [facility] Work Phone: Mental Status Date Assessment Result Facility 11-17-2024 Because of a physica l, mental, or emotional condition, do you have serious difficulty concentrating, remembering, or making decisions No 11/17/2024 12:03 PM EDMerlene Rose, MAN No [facility] 02-15-2022 Cognitive function Awake;Alert;A ppropriate; Follows Commands [facility] Work Phone: 10-08-2021 Cognitive function Appropriate;Cooperativ e [facility] Work Phone: 10-04-2021 Cognitive function Voice/Name [facility] Work Phone: 09-04-2021 Cognitive function Fearful [facility] Work Phone: Clinical Notes 11-13-2021 to 02-03-2025 Telephone Encounter - Dung, Qarab Elieser, MD - 12/24/2024 2:58 PM EDTTelephone Encounter - Sourav Marcial MD - 12/24/2024 2:58 PM EDTPatient InstructionsPatient InstructionsPatient Instructions Note Date & Type Note Facility 02-03-2025 Discharge summary [facility] 02-03-2025 Radiology Diagnostic study note [facility] Imaging Services [address] [place], [place] [address] Extremity Upper without Contra MR#: [id number] Acct: [id number] Name: LAUREN ALCARAZ Rep #: [id number] : 1940 F 84 From: Rodrigue Pritchard MD PCP: Dr. Chema Perry MD Status: REG ER Study:Extremity Upper without Contra Date of Exam: 02/03/25 Exam# [id number] Ordering Dr: Radha Bustamante DO PROCEDURE: EXTREMITY UPPER WITHOUT CONTRA 02/03/2025 REASON FOR EXAM: CLAVICLE FRACTURE TECHNIQUE: EXTREMITY UPPER WITHOUT CONTRA Coronal and Sagittal reconstruction series were provided. One or more dose reduction techniques were used (e.g., Automated exposure control, adjustment of the mA and/or kV according to patient size, use of iterative reconstruction technique RADIATION DOSE SUMMARY: CTDlvol: 112.5 mGy DLP: 480.71 mGycm COMPARISON: Radiographs on 02/03/2025. FINDINGS: Acute oblique displaced fracture of the most distal aspect of the right clavicle. Significant cranial displacement of the proximal aspect of the clavicle of the level of the fracture line. Prominent overlying soft tissue edema and swelling. 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 Unremarkable alignment at the level of the acromioclavicular and glenohumeral joints. Mild osteopenia of the visualized bones. Degenerative joint disease. No dislocation is seen. No lytic or blastic bone lesion is noted. Mild subsegmental atelectatic pulmonary changes. CT/Extremity Upper without Contra IMPRESSION: Acute oblique displaced fracture of the most distal aspect of the right clavicle. Significant cranial displacement of the proximal aspect of the clavicle of the level of the fracture line. Prominent overlying soft tissue edema and swelling. 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 Reading [facility] CC: Dr. Chema Perry MD; Isma Bustamante DO ~ Hedis Analyst: Signed [facility] 02-03-2025 Radiology Diagnostic study note [facility] Imaging Services [address] [place], [place] [address] Shoulder min 2 Views MR#: [id number] Acct: [id number] Name: LAUREN ALCARAZ Rep #: [id number] : 1940 F 84 From: Rodrigue Pritchard MD PCP: Dr. Chema Perry MD Status: [facility] ER Study:Shoulder min 2 Views Date of Exam: 02/03/25 Exam# [id number] Ordering Dr: Radha Bustamante DO PROCEDURE: SHOULDER MIN 2 VIEWS 02/03/2025 REASON FOR EXAM: DISLOCATION TECHNIQUE: SHOULDER MIN 2 VIEWS COMPARISON: 06/07/2024. FINDINGS: Acute oblique displaced fracture of the most distal aspect of the right clavicle. Significant cranial displacement of the proximal aspect of the clavicle of the level of the fracture line. 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 Unremarkable alignment at the level of the acromioclavicular and glenohumeral joints. Mild osteopenia of the visualized bones. Degenerative joint disease. No dislocation is seen. No lytic or blastic bone lesion is noted. RAD/Shoulder min 2 Views IMPRESSION: Acute oblique displaced fracture of the most distal aspect of the right clavicle. Significant cranial displacement of the proximal aspect of the clavicle of the level of the fracture line. 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 Reading [facility] CC: Dr. Chema Perry MD; Isma Bustamante DO ~ Hedis Analyst: Signed [facility] 01-05-2025 Note [facility] 12-24-2024 Telephone encounter Note Yes, I will switch you back to furosemide [address] of torsemide. [facility] 12-24-2024 Miscellaneous Notes Yes, I will [...] Marcial. Please advise. documented in this encounter [facility] 12-24-2024 Telephone encounter Note SHELIA; 12/20/2024- [...] Guadalupe Forward to Dr. Marcial. Please advise. [facility] 12-23-2024 Instructions Laisha Lizarraga APRN.ALBERT - 12/23/2024 3:18 PM EDT Continue to participate in physical activity and be cogntiively and socially engaged and active 2. Please schedule Cognitive/Speech Therapy sessions- by calling [phone]. I know there are therapists in the [place] area 3. Can consider getting back into OT later if you need a refresher 4. Can discuss with Dr. Logan re: potentially increasing the gabapentin dose for the neuropathy / RLS For now, I will increase this to 200mg daily. I would like Dr. Logan to later consider taking over refills of this medication. 5. Consider asking the Fitter/Welder about your R eyelid ptosis, I am not sure that there is a clear neurological cause for this. Follow up in ~3 months documented in this encounter [facility] 12-23-2024 History of Present illness Narrative Images from the original note were not included. Lauren Alcaraz 1940 [address] [facility] [address] December 23, 2024 [facility] FOLLOW-UP NOTE Accompanied by: [...] -- had a few episodes intermittently of lightheadedness/clamminess/presync ope- she felt it was BG related Previous plan included: I will talk w/ my colleagues re: what would be best to help w/ the forward neck curvature, I.e.- PT for cervical spine, vs other . Also ask your home certified personal trainer about a device for this as [...] twice daily. She plans to see her surgical scrub technologist after returning from vacation and inquires about [...] 1,000 mcg intramuscularly once every month. Vitamin L-89-rqrvyzbtxuokxo ammonium lactate (LAC-HYDRIN) 12 % lotion MULTIVITAMIN [...] from 2007 DATE: June 15, 2008 NO: [id number] Indication: Question of seizure Medications: None given [...] Please schedule Cognitive/Speech Therapy sessions- by calling [phone]. I know there are therapists in the [place] area 3. Can consider getting back into OT later if you need a refresher 4. Can discuss with Dr. Logan re: potentially increasing the gabapentin dose for the neuropathy / RLS For now, I will increase this to 200mg daily. I would like Dr. Logan to later consider taking over refills of this medication. 5. Consider asking the Fitter/Welder about your R eyelid ptosis, I am not sure that there is a clear neurological cause for this. Follow up in ~3 months I spent a total of 40 minutes on the date of service which included inhw-ud-iomh patient care and counseling and educating the patient/spouse. Laisha Lizarraga, MSN, CAKE PULLER-C, CNRN CC: 1. No primary care provider on file., (fax) None documented in this encounter [facility] 12-23-2024 Note [facility] 12-20-2024 Instructions Sourav Marcial MD - 12/20/2024 [...] These stockings can be purchased at most drugsElite Dailyes. Ask your doctor about limiting your salt [...] only one limb. documented in this encounter [facility] 12-20-2024 History of Present illness Narrative Images from the original note were not included. Heart and Vascular [employer] Justus Saravia Department of Cardiovascular Medicine SECTION OF [facility] CARDIOLOGY [facility] December 21, 2023 OUTPATIENT VISIT TYPE [...] Arthritis Asthma (HCC) Atherosclerotic heart disease of [place] coronary artery without angina pectoris Autoimmune disorder [...] 1,000 mcg intramuscularly once every month. Vitamin M-80-yqxczpaksyykkg ammonium lactate (LAC-HYDRIN) 12 % lotion MULTIVITAMIN [...] 74 - 99 mg/dL Final Comment: The [place] Diabetes Association (ADA) provides guidance for cutoff [...] Standards of Medical Care in Diabetes 2016, [place] Diabetes Association. Diabetes Care. 2016.39(Suppl 1). BUN [...] with VKA drugs, such as warfarin, the [place] College of Chest Physicians 2012 Guideline recommends [...] to 3.5 (target INR of 3). Tanja GH, et al. Chest 2012, 141:7S-47S Yakov RA, et al. [facility] 2017, 70: 252-289 Cardiovascular Testing: I reviewed personally. I have personally reviewed the Electrocardiogram, Chest X-ray, Laboratory Testing Carotid Doppler done on November 26, 2023 shows less than 50% stenosis with mild plaque disease [facility] nuclear SPECT scan done on May 2023 also shows normal LV function with no evidence of ischemia ejection fraction of 89%. However, it was done with 69% of maximal Peritrate heart rate obtained. Echocardiogram done in [facility] on 09 July 2024 shows normal LV function with ejection fraction of 59%, 2+ tricuspid regurgitation with right ventricular systolic pressure of 59 mmHg. 08/03/2024 EKG showed normal sinus rhythm with old inferior wall MA and poor R wave progression with no [...] low fat diet. Sourav Marcial MD, FACC. Physical Education Aide, Dept of Cardiology and Medicine, [facility]. Fire Boat Engineer of Ambulatory Cardiology, [facility]. Fire Boat Engineer of Cardiac Catheterization laboratory, [facility]. Clinical Asst. secretary bookkeeper, [facility] of Medicine and [facility] Staff Cuff Setter Lockstitch, Heart, Vascular and Thoracic [employer], [facility]. documented in this encounter [facility] 12-20-2024 Note [facility] 12-19-2024 Note [facility] 12-19-2024 History of Present illness Narrative [facility] Subjective Lauren [...] Arthritis Asthma (HCC) Atherosclerotic heart disease of [place] coronary artery without angina pectoris Autoimmune disorder [...] 1,000 mcg intramuscularly once every month. Vitamin L-12-vrljkwghcnowqx MULTIVITAMIN ORAL Take 1 tablet by mouth [...] was discharged. Procedures documented in this encounter [facility] 12-16-2024 Telephone encounter Note Called and [...] Sending to Dr. Marcial for FYI only. [facility] 12-16-2024 Miscellaneous Notes Called and spoke [...] obtain refills from the PCP Joan Guadalupe APRN.ALBERT Last Rx sent 08/03/24 with refills to last one year. Spoke with pharmacy staff. They said PCP (non-[facility]) prescribed one month of this medication with no refills which cancelled our Dr Marcial's prescription. Please advise if patient should have PCP continue prescribing. Last OV 08/03/24 Next OV 02/01/25 documented in this encounter [facility] 12-16-2024 Telephone encounter Note Uncertain why PCP would change the dose. In the future she could obtain refills from the PCP Joan Guadalupe APRN.[employer] [facility] 12-16-2024 Telephone encounter Note Last Rx sent 08/03/24 with refills to last one year. Spoke with pharmacy staff. They said PCP (non-[facility]) prescribed one month of this medication with no refills which cancelled our Dr Marcial's prescription. Please advise if patient should have PCP continue prescribing. Last OV 08/03/24 Next OV 02/01/25 [facility] 12-09-2024 Note [facility] 12-03-2024 Note [facility] 12-03-2024 History of Present illness Narrative Name: Lauren Alcaraz Assessment and [...] 2024 11:31 AM documented in this encounter [facility] 11-26-2024 Note HNO ID: [id number] Author: RADHA STREET, OTR/L Service: ? Author Type: Occupational Therapist Type: Progress Notes Filed: 11/26/2024 17:12 Note Text: Episode Visit Count: 5 Therapist That Will Accept/Oversee The Plan Of Care: [address] Start of Care Date: 10/29/24 Onset [...] and treatment included: Therapeutic exercise, Neuromuscular re-education, Self-intermediate management, and Patient/Family/Caregiver Education. Goals for Episode of Care: updated 11/26/2024 Patient will complete HEP at Modified [place] level. (MET) Patient will increase bilateral frame repairer and pinches by 5# to improve function [...] WITH LEVEL OF FUNCTION: Hand Strength R Photo Intern Position 2 (lbs): 41 lbs L Photo Intern Position 2 (lbs): 25 lbs Current Activities [...] was provided in selection of appropriate interventions. Self-Detention Management: 1: UB dressing: problem solving use [...] 1622 Session Stop Time : [address] OTR/Tori [facility] 11-26-2024 History of Present illness Narrative Images from the original note were not included. Episode Visit Count: 5 Therapist That Will Accept/Oversee The Plan Of Care: [address] Start of Care Date: 10/29/24 Onset [...] and treatment included: Therapeutic exercise, Neuromuscular re-education, Self-intermediate management, and Patient/Family/Caregiver Education. Goals for Episode of Care: updated 11/26/2024 Patient will complete HEP at Modified [place] level. (MET) Patient will increase bilateral frame repairer and pinches by 5# to improve function [...] WITH LEVEL OF FUNCTION: Hand Strength R Photo Intern Position 2 (lbs): 41 lbs L Photo Intern Position 2 (lbs): 25 lbs Current Activities [...] was provided in selection of appropriate interventions. Self-Detention Management: 1: UB dressing: problem solving use [...] : 1622 Session Stop Time : [address] documented in this encounter [facility] 11-20-2024 Note HNO ID: [id number] Author: RADHA STREET OTR/L Service: ? Author Type: Occupational Therapist Type: Progress Notes Filed: 11/20/2024 06:14 Note Text: Episode Visit Count: 4 Therapist That Will Accept/Oversee The Plan Of Care: [address] Street Start of Care Date: 10/29/24 Onset [...] : 1622 Session Stop Time : [address] OTR/L [facility] 11-20-2024 History of Present illness Narrative Episode Visit Count: 4 Therapist That Will Accept/Oversee The Plan Of Care: [address] Start of Care Date: 10/29/24 Onset [...] : 1622 Session Stop Time : 1646 LUCIEN Greenwood documented in this encounter [facility] 11-17-2024 Note [facility] 11-16-2024 Note [facility] 11-16-2024 Note HNO ID: [id number] Author: TRINA SINGH RN Service: ? Author Type: Registered Nurse Type: Nursing Progress Note Filed: 11/16/2024 12:44 Note Text: Pt reports taking eliquis yesterday (11/15/24). Dr. Jim notified. [facility] 11-16-2024 Note [facility] 11-15-2024 Telephone encounter Note Okay to direct admit per Dr. De Paz Admitting contacted Pt notified. Informed that it may take >24 hours for a bed- [facility] will call to notify once a bed becomes available Advised if symptoms get worse come to ED [facility] 11-15-2024 Miscellaneous Notes Okay to direct admit per Dr. De Paz Admitting contacted Pt notified. Informed that it may take >24 hours for a bed- [facility] will call to notify once a bed becomes available Advised if symptoms get worse come to ED Under the direction of Dr. De Paz, Called and spoke with pt and advised to come to [facility] ED Dr. De Paz reviewed CT ABD, PEHR intact,concerns for CBD not emptying. Pt very tearful, wants to feel better. Continues to experience pain, unable to eat or drink without having liquid stool. Notified MD that pt and on their way to ED. Traveling from [place]. documented in this encounter [facility] 11-15-2024 Telephone encounter Note Under the direction of Dr. De Paz, Called and spoke with pt and advised to come to [facility] ED Dr. De Paz reviewed CT ABD, PEHR intact,concerns for CBD not emptying. Pt very tearful, wants to feel better. Continues to experience pain, unable to eat or drink without having liquid stool. Notified MD that pt and on their way to ED. Traveling from [place]. [facility] 11-12-2024 Note HNO ID: [id number] Author: RADHA STREET OTR/L Service: ? Author Type: Occupational Therapist Type: Progress Notes Filed: 11/12/2024 17:23 Note Text: Episode Visit Count: 3 Therapist That Will Accept/Oversee The Plan Of Care: [address] Start of Care Date: 10/29/24 Onset Date: 10/29/22 Plan of Care Certification Date: 10/29/24 Next Certification Due Date: 12/28/24 Patient Identified by Name and Date of : Yes REHABILITATION AND SPORTS THERAPY OCCUPATIONAL THERAPY TREATMENT NOTE ASSESSMENT: Lauren Vaughan Sohajens tolerated the session with no issues. She [...] goals. PLAN FOR NEXT VISIT: hand exercises, frame repairer strengthening SUBJECTIVE: Can we work on buttons [...] judgement used in selection of appropriate intervention. Self-Detention Management: 1: activity analysis: buttoning, table top [...] : 1530 Session Stop Time : 1615 RENALDO Greenwood/Tori [facility] 11-12-2024 History of Present illness Narrative Episode Visit Count: 3 Therapist That Will Accept/Oversee The Plan Of Care: [address] Start of Care Date: 10/29/24 Onset Date: 10/29/22 Plan of Care Certification Date: 10/29/24 Next Certification Due Date: 12/28/24 Patient Identified by Name and Date of : Yes REHABILITATION AND SPORTS THERAPY OCCUPATIONAL THERAPY TREATMENT NOTE ASSESSMENT: Lauren Vaughan Lillianbar tolerated the session with no issues. She [...] goals. PLAN FOR NEXT VISIT: hand exercises, frame repairer strengthening SUBJECTIVE: Can we work on buttons [...] judgement used in selection of appropriate intervention. Self-Detention Management: 1: activity analysis: buttoning, table top [...] : 1530 Session Stop Time : 1615 RENALDO Greenwood/Tori documented in this encounter [facility] 11-12-2024 Telephone encounter Note [facility] COORDINATION TELEPHONE ENCOUNTER Pt contacted the office to get results from her CT scan done at a Satellite facility in [place]. Results are still in process. Pt and informed. [facility] 11-12-2024 Miscellaneous Notes [facility] COORDINATION TELEPHONE ENCOUNTER Pt contacted the office to get results from her CT scan done at a [facility]ellite facility in [place]. Results are still in process. Pt and informed. documented in this encounter [facility] 11-11-2024 History of Present illness Narrative Radiology Service Progress Note DATE [...] PATIENT PRESENTS WITH AN IMPLANTABLE OR ATTACHED GETTERER: No ALLERGIES: Reviewed and unchanged CONTRAST ALLERGY: [...] TIME: 2:32 PM documented in this encounter [facility] 11-11-2024 Note [facility] 11-09-2024 Radiology Diagnostic study note [facility] [address] [place], [place] [address] Chest PA and Lateral MR#: [id number] Acct: [id number] Name: LAUREN ALCARAZ Rep #: [id number] : 1940 F 84 From: Trinidad Doherty MD PCP: Dr. Chema Perry MD Status: REG CLI Study:Chest PA and Lateral Date of Exam: 11/09/24 Exam# [id number] Ordering Dr: Chema Perry MD EXAM: XR [...] Lateral IMPRESSION: Suggestion of COPD. [facility] CC: Dr. Chema Perry MD ~ Hedis Analyst: Signed [facility] 11-05-2024 Note HNO ID: [id number] Author: RADHA STREET OTR/Tori Service: ? Author Type: Occupational Therapist Type: Progress Notes Filed: 11/05/2024 17:04 Note Text: Episode Visit Count: 2 Therapist That Will Accept/Oversee The Plan Of Care: [address]ando Street Start of Care Date: 10/29/24 Onset [...] judgement used in selection of appropriate intervention. Self-Detention Management: 1: Educated in ulnar nerve anatomy 2: handwrititng: regular ball point pen with frame repairer vs regular ball point pen 3: handwriting: [...] 1405 Session Stop Time : [address] OTR/Tori [facility] 11-05-2024 History of Present illness Narrative Episode Visit Count: 2 Therapist That Will Accept/Oversee The Plan Of Care: [address] Start of Care Date: 10/29/24 Onset [...] judgement used in selection of appropriate intervention. Self-Detention Management: 1: Educated in ulnar nerve anatomy 2: handwrititng: regular ball point pen with frame repairer vs regular ball point pen 3: handwriting: [...] : 1405 Session Stop Time : 1448 LUCI[address]wood documented in this encounter [facility] 11-03-2024 Instructions Denice Jacobs PA-C - 11/03/2024 3:54 PM EDT Consult to spine Neuromuscular ultrasound of the right ulnar nerve ([phone]) Follow up as needed documented in this encounter [facility] 11-03-2024 Note HNO ID: [id number] Author: MARGARET LEONARD LPN Service: ? Author Type: LICENSED NURSE Type: Progress Notes Filed: 11/03/2024 16:43 Note Text: [facility] 11-03-2024 Note [facility] 11-03-2024 History of Present illness Narrative Images from the original note were not included. [facility] Name: Lauren Alcaraz Age: [...] from the surgery she did not wear frame repairer socks and did slide to the ground [...] Date Arthritis Asthma Atherosclerotic heart disease of [place] coronary artery without angina pectoris Autoimmune disorder [...] 1,000 mcg intramuscularly once every month. Vitamin Q-90-tyhzisgjpsjcaf ammonium lactate (LAC-HYDRIN) 12 % lotion MULTIVITAMIN [...] Range Case Report Surgical Pathology Report Case: [id number] Authorizing Provider: Anila De Paz MD Collected: [...] The cystic duct margin (en face) and asset protection representative sections of the gallbladder wall are submitted in B1. KSZ September 20, 2024 3:38 PM Gross examination performed at [facility], [address] [place], [place] [id number] Clinical History Pre-op diagnosis: Hiatal hernia [K44.9] Epigastric pain [R10.13] Nausea and vomiting, unspecified vomiting type [R11.2] Pre-op exam [Z01.818] Performing Lab Diagnostic interpretation performed at: [facility], [address] [place] [address]# [id number] Long Term Care Phlebotomist: Rosales Quintana MD COMPLETE BLOOD COUNT Result [...] 4.00 k/uL Monocytes % 8.3 % Abs Mayes 0.54 <0.87 k/uL Eosinophils % 0.2 % [...] INTERPRETING PHYSICIAN: Vaibhav Ann MD YS//Report ID: [id number] Creation Date: 02/11/20 11:42 am ELECTRONICALLY SIGNED [...] INTERPRETING PHYSICIAN: Vaibhav Ann MD YS//Report ID: [id number] Creation Date: 02/11/20 11:53 am ELECTRONICALLY SIGNED BY: VAIBHAV ANN MD Date Signed: 02/11/20 11:56 am This note was dictated using [employer] speech recognition software and may contain some [...] which included preparing to see the patient, empt-oz-psnx patient care, completing clinical documentation, obtaining and/or reviewing separately obtained history, performing a medically appropriate examination, counseling and educating the patient/family/caregiver, and ordering medications, tests, or procedures. documented in this encounter [facility] 11-02-[address] ABD pel IV con PPI Full liquid diet [facility] 11-02-[address] ABD pel IV con PPI Full liquid diet documented in this encounter [facility] 11-01-2024 Instructions Humza Camejo MD - [...] and you should strongly consider bringing a hire car driver. documented in this encounter [facility] 11-01-2024 Note Date of Procedure 11/01/2024. Medicaid Service Coordinator Information Pill Packer: NEERU. Start time: 3:43 PM. Stop time: 3:43 PM. 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 Interval Change Right Eye Worse. Left Eye Worse. ZEISS 11-01-2024 Note [facility] 11-01-2024 History of Present illness Narrative Tmax: <21 per outside; Pachy: [...] in great hands - low threshold for GUNITE MIXER both eyes Discussed continuation of drop usage to control chronic glaucoma # Pseudophakia both eyes - stable # horizontal diplopia - exotropia on cover/uncover - refer to oil heat technician for prism # dementia - possible limbic-associated [...] its relevant components. documented in this encounter [facility] 10-29-2024 Telephone encounter Note Incoming call from [facility] pharmacy states the compound that was sent over they do not cover it and it would have to be sent to a different pharmacy. Sandie Messina [facility] 10-29-2024 Miscellaneous Notes [facility] states the compound that was sent over they do not cover it and it would have to be sent to a different pharmacy. Sandie Messina documented in this encounter [facility] 10-29-2024 Note [facility] 10-29-2024 History of Present illness Narrative Name: Lauren Alcaraz Assessment and [...] 2024 2:07 PM documented in this encounter [facility] 10-29-2024 Note HNO ID: [id number] Author: RADHA STREET OTR/L Service: ? Author Type: Occupational Therapist Type: Progress Notes Filed: 10/29/2024 12:32 Note Text: Episode Visit Count: 1 Therapist That Will Accept/Oversee The Plan Of Care: Mando Street Start of Care Date: 10/29/24 Onset Date: 10/29/22 Plan of Care Certification Date: 10/29/24 Next Certification Due Date: 12/28/24 Patient Identified by Name and Date of : Yes [facility] REHABILITATION AND SPORTS THERAPY OCCUPATIONAL THERAPY EVALUATION [...] 10/29/24 Patient will complete HEP at Modified [place] level. Patient will increase bilateral frame repairer and pinches by 5# to improve function [...] Planned: 8 Planned Treatment Interventions: Therapeutic exercise (54873), Neuromuscular re-education (99503), Self-intermediate management (96535), Patient/Family/Caregiver Education PLAN FOR NEXT VISIT:assess different writing utensils, proximal stability? button hook, gentle frame repairer strengthening Patient demonstrates good understanding of plan [...] Assistance Available: 24-Hour Equipment Owned: Dressing Stick, Museum Registrar Pain: Pain Pain Level: 0 (mild arthritic [...] thoracic kyphosis, Forward head Hand Strength R Photo Intern Position 2 (lbs): 35 lbs L Photo Intern Position 2 (lbs): 24 lbs R Lateral [...] Modified Independent Bathing (more content not included)... [facility] 10-29-2024 History of Present illness Narrative Images from the original note were not included. Episode Visit Count: 1 Therapist That Will Accept/Oversee The Plan Of Care: Mando Street Start of Care Date: 10/29/24 Onset Date: 10/29/22 Plan of Care Certification Date: 10/29/24 Next Certification Due Date: 12/28/24 Patient Identified by Name and Date of : Yes [facility] REHABILITATION AND SPORTS THERAPY OCCUPATIONAL THERAPY EVALUATION [...] 10/29/24 Patient will complete HEP at Modified [place] level. Patient will increase bilateral frame repairer and pinches by 5# to improve function [...] Planned: 8 Planned Treatment Interventions: Therapeutic exercise (83150), Neuromuscular re-education (31670), Self-intermediate management (66426), Patient/Family/Caregiver Education PLAN FOR NEXT VISIT:assess different writing utensils, proximal stability? button hook, gentle frame repairer strengthening Patient demonstrates good understanding of plan [...] Assistance Available: 24-Hour Equipment Owned: Dressing Stick, Museum Registrar Pain: Pain Pain Level: 0 (mild arthritic [...] thoracic kyphosis, Forward head Hand Strength R Photo Intern Position 2 (lbs): 35 lbs L Photo Intern Position 2 (lbs): 24 lbs R Lateral [...] Review/Additional Education TREATMENT: OT Treatment Interventions : Self-Detention Management Evaluation Self-Detention Management: 1: Pt and spouse educated in [...] : 1052 Session Stop Time : 1135 RENALD[address]wood/Tori documented in this encounter [facility] 10-18-2024 Telephone encounter Note 10/18/24 PCP is listed in the patient's chart. Thank you! -IN [facility] 10-18-2024 Miscellaneous Notes 10/18/24 PCP is listed in the patient's chart. Thank you! -IN documented in this encounter [facility] 10-14-2024 Evaluation note Diagnosis Onset Date Resolution Depression acute October 14, 2024 1:03pm Falls frequently acute October 14, 2024 1:03pm Hiatal hernia acute October 142024 1:03pm History of cholecystectomy acute October 14 025 1:03pm History of repair of hiatal hernia acute October 14 025 1:03pm Hypothyroidism acute September 192024 1:03pm Seizure disorder acute October 14, 2024 1:03pm Difficulty swallowing chronic Feb ruary 2024 1:03pm Kyphoscoliosis deformity of spine chronic October 14 025 1:03pm RSD (reflex sympathetic dystrophy) chronic October 14 025 1:03pm Bronchiectasis chronic October 22, 2024 2:11pm Kyphoscoliosis deformity of spine chronic October 22, 2024 2:11pm [facility] Work Phone: [phone]) 399-135802-26-2025 Instructions* Patient Instructions* Laisha Lizarraga APRN.ALBERT - 10/13/2024 2:00 PM EST I will talk w/ my colleagues re: what would be best to help w/ the forward neck curvature, I.e.- PTfor cervical spine, vs other . Also ask your home certified personal trainer about a device for this as [...] up in ~3-6 mo [facility] History of Present illness Narrative* Laisha Lizarraga APRN.CNP - 10/13/2024 1:15 PM EST Images from the original note were not included. Lauren Alcaraz 1940 [address] [facility] [facility] [address] [facility] [address] October 13, 2024 [facility] FOLLOW-UP NOTE [...] have the numbness/tingling in feet evaluated better -[phone] Follow up in ~3-6 months Today, Lauren [...] 1,000 mcg intramuscularly once every month. Vitamin M-13-xbndrsmceuyouy ammonium lactate (LAC-HYDRIN) 12 % lotion MULTIVITAMIN [...] from 2007 DATE: June 15, 2008 NO: [id number] Indication: Question of seizure Medications: None given [...] vs other . Also ask your home certified personal trainer about a device for this as [...] on the date of service which included gxan-hp-euyj patient care and counseling and educating the patient/spouse. Laisha Lizarraga, MSN, CAKE PULLER-C, CNRN CC: 1. No primary care provider [...] Signs: LMP (LMP Unknown) [facility] History of Present illness Narrative* Anila De [...] Date Arthritis Asthma Atherosclerotic heart disease of [place] coronary artery without angina pectoris Autoimmune disorder [...] 1,000 mcg intramuscularly once every month. Vitamin J-00-kpbjzvsxxzuatn ammonium lactate (LAC-HYDRIN) 12 % lotion MULTIVITAMIN [...] - Diet as tolerated - 5mg of [place] q6hr for 2 weeks until follow up with pain mgmt - Follow up 4 weeks November MD [place] General [facility] PGY2 I saw and evaluated the patient. Discussed with the resident and agree with resident's findings andplan as documented in the resident's note. Anila De Paz MD [facility] Note [facility]01-28-2025 Instructions* Patient Instructions* Brenda Moreland APRN.WOOD PRESERVING PLANT LABORER - 09/14/2024 2:02 PM EST PATIENT PREOPERATIVE INSTRUCTIONS Anila De Paz has scheduled you for your procedure at this surgery center: [facility] [place] [facility] Scheduling Office: [phone] --[address] [place] [address]. Please read below carefully for your personalized instructions. Arrival Time for Surgery: - To obtain your arrival time for surgery, call your physician's office the day before your surgery. - If your surgery is scheduled for Friday, call the Friday before. Your surgeon s personnel scheduler will tell you what time to call the office. - If you have not reached the departmental personnel scheduler by 5 P.M., call [phone] after 5 P.M. the day before your [...] office. If you are currently using a rbxy-ezc-rfnt injectable or oral medication for diabetes or [...] Advance Directive, please fax a copy to [phone] or email to for it to be [...] day. Brenda Moreland APRN.CNP documented in [facility] History and physical note * Brenda [...] large neck Non-male patient STOP-Bang Score: 4 [id number] Score: Age: >=75 Sex: female CHF history: No Hypertension history: Yes Stroke/TIA/thromboembolism history: Yes Vascular disease history: Yes Diabetes history: No [id number] Score: 7 ARISCAT Score: Age: >80 Preoperative [...] for: arrhythmia, atrial fibrillation, CHF and recent MA. GI: Positive for: abdominal pain and GERD Negative for: dysphagia, diverticulitis, GI bleed <30 days, hepatitis, irritable bowel syndrome,inflammatory bowel disease, liver disease, nausea, vomiting and ETOH >2 drinks/day. : Negative for: dysuria, hematuria, nephrolithiasis and renal failure. DIGITAL MEDIA SPECIALIST: Negative for abnormal vaginal bleeding, abnormal vaginal [...] Date Arthritis Asthma Atherosclerotic heart disease of [place] coronary artery without angina pectoris Autoimmune disorder [...] 1,000 mcg intramuscularly once every month. Vitamin G-91-ianuszvjdyhxzd ammonium lactate (LAC-HYDRIN) 12 % lotion denosumab [...] 402 QTC Calculation (Bazett) 448 Calculated P Dante 42 Calculated R Dante -38 Calculated T Dante 49 Impression NORMAL SINUS RHYTHM LEFT AXIS DEVIATION POOR R WAVE PROGRESSION INFERIOR MYOCARDIAL INFARCTION , AGE UNDETERMINED ABNORMAL ECG Confirmed by MD DUNG, SOURAV ([id number]), technical editor TONYA IVEY ([id number]) on 08/03/2024 4:15:08 PM Recent Results (from the past 16641 hour(s)) ECHO Collection Time: 07/09/24 11:20 AM [...] which included preparing to see the patient, peml-at-emog patient care, completing clinical documentation, obtaining and/or reviewing separately obtained history, performing a medically appropriate examination, counseling and educating the pat ient/family/caregiver, and ordering medications, tests, or procedures. SIGNATURE: Brenda Moreland APRN.CNP PATIENT NAME: Lauren Alcaraz DATE: September 14, 2024 TIME: 1:52 PM PAGER/CONTACT #: [facility]01-28-2025 History and physical note* Brenda Moreland APRN.WOOD PRESERVING PLANT LABORER - 09/14/2024 1:52 PM EST Images from [...] large neck Non-male patient STOP-Bang Score: 4 [id number] Score: Age: >=75 Sex: female CHF history: No Hypertension history: Yes Stroke/TIA/thromboembolism history: Yes Vascular disease history: Yes Diabetes history: No [id number] Score: 7 ARISCAT Score: Age: >80 Preoperative [...] for: arrhythmia, atrial fibrillation, CHF and recent MA. GI: Positive for: abdominal pain and GERD Negative for: dysphagia, diverticulitis, GI bleed <30 days, hepatitis, irritable bowel syndrome,inflammatory bowel disease, liver disease, nausea, vomiting and ETOH >2 drinks/day. : Negative for: dysuria, hematuria, nephrolithiasis and renal failure. DIGITAL MEDIA SPECIALIST: Negative for abnormal vaginal bleeding, abnormal vaginal [...] Date Arthritis Asthma Atherosclerotic heart disease of [place] coronary artery without angina pectoris Autoimmune disorder [...] 1,000 mcg intramuscularly once every month. Vitamin Z-16-mfyemkbopjzpmk ammonium lactate (LAC-HYDRIN) 12 % lotion denosumab [...] 402 QTC Calculation (Bazett) 448 Calculated P Dante 42 Calculated R Dante -38 Calculated T Dante 49 Impression NORMAL SINUS RHYTHM LEFT AXIS DEVIATION POOR R WAVE PROGRESSION INFERIOR MYOCARDIAL INFARCTION , AGE UNDETERMINED ABNORMAL ECG Confirmed by MD DUNG, SOURAV ([id number]), technical editor TONYA IVEY ([id number]) on 08/03/2024 4:15:08 PM Recent Results (from the past 72597 hour(s)) ECHO Collection Time: 07/09/24 11:20 AM [...] which included preparing to see the patient, uatp-lm-acmy patient care, completing clinical documentation, obtaining and/or reviewing separately obtained history, performing a medically appropriate examination, counseling and educating the pat ient/family/caregiver, and ordering medications, tests, or procedures. SIGNATURE: Brenda Moreland APRN.CNP PATIENT NAME: Lauren Alcaraz DATE: September 14, 2024 TIME: 1:52 PM PAGER/CONTACT #: documented in [facility] encounter[facility] Nurse Note* Ana Fuentes RN - 09/13/2024 2:39 PM EST 1439: Dr. Allie Su paged: Patient Lauren Alcarza in post bed 12: FYI - BP [...] OK to discharge. Ana Fuentes RN BSN [facility]01-27-2025 Nurse Note* Ana Fuentes RN - 09/13/2024 2:39 PM EST 1439: Dr. Allei Su paged: Patient Lauren Alcaraz in post [...] RN In Department: GASTROENTEROLOGY documented in this encounterH[facility]01-27-[facility] Nurse Note* Ana Fuentes RN - [...] MATERIAL: Procedure Discharge Instructions REFERRAL (RECOMMENDATION): None [facility]01-27-2025 NoteQ3 Patient Name: Lauren Alcaraz Procedure Date: 09/13/2024 12:35 PM Date of : 1940 Admit Type: Outpatient Age: 84 Gender: Female Note Status: Finalized Attending MD: Alisa Haile MD, [id number] Procedure: Upper EUS Indications: Dilated pancreatic duct [...] to home. Procedure Code(s): --- Professional --- 11929 Diagnosis Code(s): --- Professional --- K44.9 K80.50 K86.89 K83.8 CPT copyright 2020 [employer] [place] [facility] (more content not included)...[facility]ATION 09-13-2024 NoteQ3 Patient Name: Lauren Alcaraz Procedure Date: 09/13/2024 12:34 PM Date of : 1940 Admit Type: Outpatient Age: 84 Gender: Female Note Status: Finalized Attending MD: Alisa Haile MD, [id number] Procedure: ERCP Indications: Bile duct stone(s) Providers: [...] administered by the anesthesia team. Findings: The percolator operator film was normal. Despite multiple attempts to [...] hernia repair. Procedure Code(s): --- Professional --- 94948 Diagnosis Code(s): --- Professional --- K80.50 CPT copyright 2020 [employer]. All rights reserved. Attending Participation: I was present and participated during the entire procedure, including non-guillermo portions. Scope In: 1:37:28 PM Scope Out: 2:05:[address] Alisa Haile MD 09/13/2024 2:08:23 PM This report has been signed electronically by Alisa Haile MD Number of Addenda: 0 Note Initiated On: 09/13/2024 12:34 [id number] [facility]27-2025 History and physical note* Arturo Olsen MD - 09/13/2024 1:00 PM EST PROCEDURAL SEDATION HISTORY AND PHYSICAL EXAM SERVICE DATE: 09/13/2024 SERVICE TIME: 1232 Subjective HPI: This is a 84 year old female who presents with Dilated PD and bile duct stone PAST ANESTHESIA HISTORY:No history of adverse event PAST MEDICAL HISTORY Diagnosis Date Arthritis Asthma 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 donepezil (ARICEPT) 10 mg tablet Take 1 tablet by mouth daily with breakfast. gabapentin (NEURONTIN) 100 mg capsule as needed. traMADol (ULTRAM) 50 mg tablet Take 25 mg by mouth two times a day. famotidine (PEPCID) 10 mg tablet Take 10 mg by mouth twice daily. DODEX 1,000 mcg/mL Inject 1,000 mcg intramuscularly once every month. Vitamin R-96-rvrkrnfqcwwors ammonium lactate (LAC-HYDRIN) 12 % lotion BD [...] 13, 2024 TIME: 12:32 PM Created 2023 [facility] Work Phone: 1(416) 972-926201-27-2025 History and physical note* Arturo lOsen MD - 09/13/2024 1:00 PM EST PROCEDURAL SEDATION HISTORY AND PHYSICAL EXAM SERVICE DATE: 09/13/2024 SERVICE TIME: 1232 Subjective HPI: This is a 84 year old female who presents with Dilated PD and bile duct stone PAST ANESTHESIA HISTORY:No history of adverse event PAST MEDICAL HISTORY Diagnosis Date Arthritis Asthma 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 donepezil (ARICEPT) 10 mg tablet Take 1 tablet by mouth daily with breakfast. gabapentin (NEURONTIN) 100 mg capsule as needed. traMADol (ULTRAM) 50 mg tablet Take 25 mg by mouth two times a day. famotidine (PEPCID) 10 mg tablet Take 10 mg by mouth twice daily. DODEX 1,000 mcg/mL Inject 1,000 mcg intramuscularly once every month. Vitamin Y-29-etimgkizncjrsm ammonium lactate (LAC-HYDRIN) 12 % lotion BD [...] September 13, 2024 TIME: 12:32 PM 2023 documented in this encounterHocking [facility]01-27-[facility]25 Nurse Note* Tonya De Santiago RN [...] Tonya De Santiago RN In Department: GASTROENTEROLOGY [facility]01-24-2025 [facility]Way[facility]01-24-2025 History of Present illness Narrative* Nicolsá Beltrán DO - 09/10/2024 11:46 AM EST [...] Care Visit completed when applicable. Brenda Kramer, underground repairer B.Allie Beltrán DO documented in this encounterHocking Valley Community Hospital01-23-2025 Telephone encounter Note * Telephone Encounter - Jacqueline Noland LPN - 09/09/2024 11:32 AM EST Images from [id number] request faxed to [facility] . [facility]01-23-2025 Miscellaneous Notes* Telephone Encounter - Jacqueline Noland LPN - 09/09/2024 11:32 AM EST Images from [id number] request faxed to [facility] . documented in this encounterHocking Valley Community Hospital01-22-2025 Telephone encounter Note * Telephone Encounter - Taylor Forrest RN - 09/08/2024 2:34 PM EST Spoke with Lauren's Delroy- EUS is scheduled for 09/13/[address] Haile. Reviewed Instructions for Eliquis and Aspirin pre-op. Understands that Eliquis is to be held TWO days before surgery Aspirin only held for ONE day prior to surgery Sent updated Signpost message. [facility]01-22-2025 Miscellaneous Notes* Telephone Encounter - Taylor Forrest RN - 09/08/2024 2:34 PM EST Spoke with Lauren's Delroy- EUS is scheduled for Fri09/13/[address] Haile. Reviewed Instructions for Eliquis and Aspirin pre-op. Understands that Eliquis is to be held TWO days before surgery Aspirin only held for ONE day prior to surgery Sent updated Signpost message. documented in this encounterHocking Valley [facility] Hospital01-22-2025 Telephone encounter Note * Telephone Encounter - Susan Srinivasan MD - 09/08/2024 1:51 PM EST Spoke with patient and spouse about MRI findings and that EUS was necessary. All Qs answered. They are willing to come on Friday for EUS Dr. Oumar Murray. Susan Srinivasan MD [facility] Work Phone: 1(684) 561-598201-22-2025 Miscellaneous Notes* Telephone Encounter - Susan Srinivasan MD - 09/08/2024 1:51 PM EST Spoke with patient and spouse about MRI findings and that EUS was necessary. All Qs answered. They are willing to come on Friday for EUS Dr. Oumar Murray. Susan Srinivasan MD documented in this encounterHocking Valley Community Hospital01-21-2025 History of Present illness Narrative* Jaqueline Costello, RT(R) - 09/07/2024 9:30 AM EST Radiology [...] PATIENT PRESENTS WITH AN IMPLANTABLE OR ATTACHED GETTERER: No ALLERGIES: Reviewed and unchanged CONTRAST ALLERGY: NO. EXAM: MRI - CONTRAST TYPE: GROUP II PERIPHERAL IV DATA: Ambulatory: A peripheral IV was started in the Left upper extremity with a Angio cath: 22 gauge. RADIOLOGY DEPARTMENT: MR; Exam(s) Completed: Body: Pancreas/Biliary SIGNATURE: RT Brice(R) PATIENT NAME: Lauren Alcaraz DATE: September 07, 2024 TIME: 9:32 AM documented in this encounterHocking Valley Community Hospital01-21-2025 [facility]Way[facility]01-21-2025 Telephone encounter Note* Telephone Encounter - Joan [...] asa until 1 day pre-op? Joan Nolasco [facility] Work Phone: 1(500) 586-393801-21-2025 Miscellaneous Notes* Telephone Encounter - Joan Streeter [...] days prior to DOS. Joan Streeter RN- PAC documented in this encounterHocking Valley Community Hospital01-20-2025 Telephone encounter Note * Telephone Encounter - Sourav Marcial MD - 09/06/2024 5:50 PM EST She can hold aspirin only for 1 day prior to her surgery date as she had 2 coronary artery stents and cannot stop aspirin for any longer than 24 hours. [facility]01-20-2025 Telephone encounter Note* Telephone Encounter - Misty Reyes RN - 09/06/2024 2:07 PM EST SHELIA: 08/03/2024- Dung FOV: 02/01/2025- Dung Forward to Dr. Marcial. Please advise. [facility]01-20-2025 Telephone encounter Note* Telephone Encounter - [...] prior to DOS. Joan Streeter RN- PACC [facility]01-20-2025 [facility]Way[facility]01-20-2025 History of Present illness Narrative* Joan Streeter RN - 09/06/2024 9:22 AM EST RN Pre Visit Questionnaire for upcoming [facility] appointment PROCEDURE : LAPAROSCOPIC RPR PARAESOHAGEAL HERNIA W/ FUNDOPLASTY +/- MESH SURGEON : Anila De Paz MD PROCEDURE DATE : 2/3 [facility] APPT : 09/15 Do you see a hand salter, php magento developer, tubing mill setter or other specialist within or outside of [facility]? SPECIALISTS: CARDIOLOGY: Cuff Setter Lockstitch Dr. Sourav Marcial , Last office visit 08/03 NEUROLOGY: Denice Jacobs PA-C OV 08/06/24 PRIMARY CARE PHYSICIAN: Chema Perry MD ([place]) OV 04/22/24 in scanned doc 05/14/24 [facility]: Tamiko Ku CAKE PULLER-C OV 11/12/23 in scanned doc 07/19 Denies [...] d pre-op per surgery team request in [facility] 09/03 Anticoagulation recommendations : Found in OV [...] doc 07/19 Most recent CARDIAC CATH: 09/2013 [facility] Most recent carotid duplex 12/02/23 in scanned doc 07/19: Display only: Hot Pipe Gauger ([id number]) on 08/03/2024 4:15 PM by Sourav Marcial MD Scan on 07/19/2024 4:02 PM by Provider External PA-C: Echo Scan on 07/19/2024 3:59 PM by Provider External PA-C: Stress Test Scan on 07/19/2024 4:02 PM by Provider JOSE Ventura: Miscellaneous Cardiac Any new changes in your symptoms since you last saw your specialist? no Are you a Pre Diabetic/Diabetic/Weight loss/CHF medications No Dialysis No Skilled Facility Resident: no Any recent hospitalizations outside of [facility]? no Instructions Given to Patient's : hold asa 1 day pre-op and eliquis 2 days pre-op Spouse given verbal preop instructions and voices comprehension and compliance. 09/09 vt SIGNATURE: Joan Streeter RN PATIENT NAME: Lauren Alcaraz DATE: September 06, 2024 TIME: 9:23 AM PAGER/CONTACT PHONE: documented in this encounterHocking Valley Community Hospital01-17-2025 History and physical note * Anila De Paz MD - 09/03/2024 3:00 PM EST HISTORY AND PHYSICAL EXAMINATION SERVICE DATE: 09/03/2024 SERVICE TIME: 2:30PM PRIMARY CARE PHYSICIAN: Chema Perry MD Subjective CHIEF COMPLAINT: GERD HPI: This is a 84 year old female who presents for her preoperative evaluation for a PEH repair FUNCTIONAL STATUS: Independent PAST MEDICAL HISTORY Diagnosis Date Arthritis Asthma Atherosclerotic heart disease of [place] coronary artery without angina pectoris Autoimmune disorder [...] No history of dysuria, frequency or incontinence DIGITAL MEDIA SPECIALIST: Negative for abnormal vaginal bleeding, abnormal vaginal [...] DATE: September 03, 2024 TIME: 3:00 PM [facility]01-17-2025 History and physical note* Anila De [...] Date Arthritis Asthma Atherosclerotic heart disease of [place] coronary artery without angina pectoris Autoimmune disorder [...] No history of dysuria, frequency or incontinence DIGITAL MEDIA SPECIALIST: Negative for abnormal vaginal bleeding, abnormal vaginal [...] 2024 TIME: 3:00 PM documented in this encounterHocking Valley Community Hospital01-17-2025 NoteWay[facility]01-17-2025 History of Present illness Narrative* Taylor Forrest RN - 09/03/2024 2:47 PM EST Pt with , Delroy PACC questionnaire complete: In-person PACC Wears O2 at night and when napping Slow to wake up from anesthesia - note sent to PACC Pain Management Reviewed surgical plan with pt- agreed upon date of 09/20/[address] De Paz at [facility] ELIQUIS INSTRUCTIONS per Dr. Marcial 08/03/25 The [...] am of surgery Pt requested transfer to [facility] in [place] for rehab. Will inform team - advised pt to inform case reviewer before discharge. AMBULATORY PATIENT EDUCATION NOTE TOPIC: [...] patient education: 20 minutes. documented in this encounterHocking Valley Community Hospital01-08-2025 Telephone encounter Note * Telephone Encounter [...] Provided pt and this RN contact info [facility]01-08-2025 Miscellaneous Notes* Telephone Encounter - Taylor [...] this RN contact info documented in this encounterHocking Valley Community Hospital12-20-2024 Instructions* Patient Instructions* Denice Jacobs PA-C - 08/06/2024 10:30 AM EST Laboratory studies EMG of the arm and leg Follow up in [facility] (Tuesdays and Wednesdays) after work up documented in this encounterHocking Valley Community Hospital12-20-2024 NoteWay[facility]12-20-2024 History of Present illness Narrative* Denice Jacobs PA-C - 08/06/2024 9:47 AM EST Images from the original note were not included. [facility] Neurology Name: Lauren Alcaraz Age: [...] Hx of dementia and following with brain [facility], referred for paresthesias. Last visit on 07/01/24 [...] her handwriting. Has no burning pain or lqdl-ffb-wmvvzui feeling, just reports a lack of sensation [...] [facility]. Numbness in feet: yes, bottom of feet [...] Date Arthritis Asthma 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 donepezil (ARICEPT) 10 mg tablet Take 1 tablet by mouth daily with breakfast. gabapentin (NEURONTIN) 100 mg capsule as needed. traMADol (ULTRAM) 50 mg tablet Take 25 mg by mouth two times a day. famotidine (PEPCID) 10 mg tablet Take 10 mg by mouth twice daily. DODEX 1,000 mcg/mL Inject 1,000 mcg intramuscularly once every month. Vitamin Y-26-asldoupcgenqfz ammonium lactate (LAC-HYDRIN) 12 % lotion BD [...] Skin Biopsy: This note was dictated using [employer] speech recognition software and may contain some [...] which included preparing to see the patient, jukn-bx-rrif patient care, completing clinical documentation, obtaining and/or reviewing separately obtained history, performing a medically appropriate examination, counseling and educating the pat ient/family/caregiver, and ordering medications, tests, or procedures. documented in this encounterHocking Valley Community Hospital12-17-2024 NoteNORMAL SINUS RHYTHM LEFT AXIS DEVIATION POOR R WAVE PROGRESSION INFERIOR MYOCARDIAL INFARCTION , AGE UNDETERMINED ABNORMAL ECG Confirmed by MD MARCIAL QARAB ([id number]), technical editor TONYA IVEY ([id number]) on 08/03/2024 4:15:08 PMUNIVERSITY H[facility]ALS [facility]AGE [facility] CENTERRT AND VASCULAR [id number] Instructions* Patient Instructions* Sourav Marcial MD - [...] Interventional procedures are not considered surgery. A hand salter (not a surgeon) performs theseprocedures to reduce [...] part of your treatment. documented in this encounterHocking Valley Community Hospital12-17-2024 NoteWay[facility]12-17-2024 History of Present illness Narrative* Sourav Marcial MD - 08/03/2024 3:29 PM EST Images from the original note were not included. Heart and Vascular [employer] Justus Saravia Department of Cardiovascular Medicine SECTION OF [facility] CARDIOLOGY [facility] August 03, 2024 OUTPATIENT VISIT TYPE [...] Date Arthritis Asthma 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 donepezil (ARICEPT) 10 mg tablet Take 1 tablet by mouth daily with breakfast. gabapentin (NEURONTIN) 100 mg capsule as needed. traMADol (ULTRAM) 50 mg tablet Take 25 mg by mouth two times a day. famotidine (PEPCID) 10 mg tablet Take 10 mg by mouth twice daily. DODEX 1,000 mcg/mL Inject 1,000 mcg intramuscularly once every month. Vitamin G-03-uponwbpdvtntkm ammonium lactate (LAC-HYDRIN) 12 % lotion MULTIVITAMIN [...] than 50% stenosis with mild plaque disease [facility] nuclear SPECT scan done on May 2023 also shows normal LV function with no evidence of ischemia ejection fraction of 89%. However, it was done with 69% of maximal Peritrate heart rate obtained. Echocardiogram done in [facility] on 09 July 2024 shows normal LV function withejection fraction of 59%, 2+ tricuspid regurgitation with right ventricular systolic pressure of 59mmHg. 08/03/2024 EKG showed normal sinus rhythm with old inferior wall MA and poor R wave progression with no [...] low fat diet. Sourav Marcial MD, FACC. Physical Education Aide, Dept of Cardiology and Medicine, [facility]. Fire Boat Engineer of Ambulatory Cardiology, [facility]. Fire Boat Engineer of Cardiac Catheterization laboratory, [facility]. Clinical Asst. secretary bookkeeper, [facility] of Medicine and [facility] Staff Cuff Setter Lockstitch, Heart, Vascular and Thoracic [employer], [facility]. 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 documented in this encounterHocking Valley Community Hospital12-04-2024 Nurse Note* Gina Dietrich LPN - [...] MATERIAL: Procedure Discharge Instructions REFERRAL (RECOMMENDATION): None [facility]12-04-2024 Nurse Note* Gina Dietrich LPN - [...] RN In Department: GASTROENTEROLOGY documented in this encounterHocking Valley Community Hospital12-04-2024 NoteQ3 Patient Name: Lauren Alcaraz Procedure Date: 07/21/2024 4:12 PM Date of : 1940 Admit Type: Outpatient Age: 83 Gender: Female Note Status: Finalized Attending MD: Eliazar Brown MD, [id number] Procedure: Upper GI endoscopy Indications: Hiatal hernia [...] were provided to the (more content not included)...[id number] Nurse Note* Trina Singh RN - 07/21/2024 [...] By: Trina Singh RN In Department: GASTROENTEROLOGY [facility]12-02-2024 Evaluation note* Diagnosis Onset Date Resolution [...] 14, 2024 1:03pm Difficulty swallowing chronic Feb ru2024 1:03pm Kyphoscoliosis deformity of spine chronic October 14 2 025 1:03pm RSD (reflex sympathetic dystrophy) chronic October 14 2 025 1:03pm Bronchiectasis chronic October 22, 2024 2:11pm Kyphoscoliosis deformity of spine chronic October 22, 2024 2:11pm [facility] Work Phone: 1(495) 341-999912-02-2024 Telephone encounter Note* Telephone Encounter - Dottie Horowitz LPN - 07/19/2024 3:53 PM EST Printed from [facility]. Scanned into Epic through Onbase scanning. Dottie Horowitz LPN [facility]12-02-2024 Miscellaneous Notes* Telephone Encounter - Dottie Horowitz LPN - 07/19/2024 3:53 PM EST Printed from [facility]. Scanned into Epic through Onbase scanning. Dottie Horowitz LPN * Telephone Encounter - Willa Torres APRN.CNP - 07/19/2024 3:43 PM EST Please request last cardiac OV and testing. documented in this encounterHocking Valley Community Hospital12-02-2024 Telephone encounter Note * Telephone Encounter - Willa Torres APRN.CNP - 07/19/2024 3:43 PM EST Please request last cardiac OV and testing. [facility]11-29-2024 History and physical note* Willa Torres [...] 129/67 Hyperlipidemia Assessment: c/w statin Seizure disorder ([facility]) Assessment: controlled on rx, last known seizure over 10 years ago History of DVT (deep vein thrombosis) Assessment: hx 2011, tx with coumadin, no recurrence Obstructive sleep apnea syndrome Assessment: c/w CPAP Bronchiectasis ([facility]) Assessment: rx as needed Gastroesophageal reflux disease [...] large neck Non-male patient STOP-Bang Score: 2 [id number] Score: Age: >=75 Sex: female CHF history: No Hypertension history: No Stroke/TIA/thromboembolism history: Yes Vascular disease history: Yes Diabetes history: No [id number] Score: 6 ARISCAT Score: Age: >80 Preoperative [...] pain, CHF, congenital heart defect, hypertension, recent MA, PVD, open heart surgery and valve surgery. GI: See HPI. Positive for: dysphagia, esophageal stricture (hx dilation), GERD (hx, otc rx as needed) and vomiting (intermittently) Negative for: abdominal pain, hepatitis, irritable bowel syndrome, inflammatory bowel disease, liver disease, nausea, pancreatitis and ETOH >2 drinks/day. : Positive for: urinary incontinence (+OAB, on rx). DIGITAL MEDIA SPECIALIST: Negative for abnormal vaginal bleeding, abnormal vaginal [...] Date Arthritis Asthma 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 Taking Yes donepezil [...] 1,000 mcg intramuscularly once every month. Vitamin B-50-bpdpemqxebkpzo Taking Yes ammonium lactate (LAC-HYDRIN) 12 % [...] 8760 hour(s)). Recent Results (from the past 09093 hour(s)) ECHO Collection Time: 07/09/24 11:20 AM [...] 16, 2024 TIME: 2:48 PM PAGER/CONTACT #: [facility]11-29-[facility] History and physical note* Willa Torres APRN.CNP - 07/16/2024 2:48 PM EST Images from the original note were not included. [facility]est[facility] HISTORY [...] following [facility], last OV 11/12/2023 [facility]. Stress test 05/2023 negative for ischemia. Pt [...] large neck Non-male patient STOP-Bang Score: 2 [id number] Score: Age: >=75 Sex: female CHF history: No Hypertension history: No Stroke/TIA/thromboembolism history: Yes Vascular disease history: Yes Diabetes history: No [id number] Score: 6 ARISCAT Score: Age: >80 Preoperative [...] pain, CHF, congenital heart defect, hypertension, recent MA, PVD, open heart surgery and valve surgery. GI: See HPI. Positive for: dysphagia, esophageal stricture (hx dilation), GERD (hx, otc rx as needed) and vomiting (intermittently) Negative for: abdominal pain, hepatitis, irritable bowel syndrome, inflammatory bowel disease, liver disease, nausea, pancreatitis and ETOH >2 drinks/day. : Positive for: urinary incontinence (+OAB, on rx). DIGITAL MEDIA SPECIALIST: Negative for abnormal vaginal bleeding, abnormal vaginal [...] Date Arthritis Asthma 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 Taking Yes donepezil [...] 1,000 mcg intramuscularly once every month. Vitamin Q-12-cpsquwhucqffvp Taking Yes ammonium lactate (LAC-HYDRIN) 12 % [...] 8760 hour(s)). Recent Results (from the past 58722 hour(s)) ECHO Collection Time: 07/09/24 11:20 AM [...] 2:48 PM PAGER/CONTACT #: documented in this encounterHocking Valley Community Hospital11-29-2024 Instructions* Patient Instructions* Willa Torres APRN.CNP - 07/16/2024 2:42 PM EST Images from the original note were not included. [facility] PATIENT PREOPERATIVE INSTRUCTIONS No ref. provider found has scheduled you for your procedure at this surgery center: [facility] [place] Scheduling Office: [phone] --[address] [place] [address]. Please read below carefully for your personalized [...] office. If you are currently using a lbkq-jai-oxpy injectable or oral medication for diabetes or [...] or other anticoagulants without consulting with your hand salter or prescribing physician. - Stop ALL herbal [...] Procedures: - YOU MUST HAVE A RESPONSIBLE WHEEL CUTTER TAKE YOU HOME. A AEROPHYSICIST OR LEATHERSMITH CANNOT BE MADE A RESPONSIBLE WHEEL CUTTER. - We recommend that a responsible person [...] call the Friday before. Your surgeon s personnel scheduler will tell you what time to call the office. - If you have not reached the departmental personnel scheduler by 5 P.M., call [phone] after 5 P.M. the day before your surgery. Please be aware that emergency situations arise, which may delay or change your surgical time. If this happens, we will notify you as soon as possible and regret any inconvenience. If you already have an Advance Directive, please fax a copy to [phone] or email to for it to be [...] day. Willa Torres APRN.ALBERT documented in this encounterHocking Valley Community Hospital11-27-2024 Telephone encounter Note * Telephone Encounter [...] have family/friend present for procedure transport home:Patient/patient asset protection representative was told that if they do [...] area. Any barriers to Patient learning: Patient/Patient Power Tool Repair Technician responded appropriately on phone. Type of instruction given: Verbal by telephone contact. Jaqueline Del Cid RN [facility]11-27-2024 Miscellaneous Notes* Telephone Encounter - Jaqueline [...] have family/friend present for procedure transport home:Patient/patient asset protection representative was told that if they do [...] area. Any barriers to Patient learning: Patient/Patient Power Tool Repair Technician responded appropriately on phone. Type of instruction given: Verbal by telephone contact. Jaqueline Del Cid RN documented in this encounterHocking Valley Community Hospital11-21-2024 Telephone encounter Note * Telephone Encounter - Terri Orosco RN - 07/08/2024 11:05 AM EST Patients called back to office today. Spoke with spouse and all questions answered. Discussed need for holding blood thinner for EGD which spouse will reach out to local hand salter for instructions. [facility]11-21-2024 Miscellaneous Notes* Telephone Encounter - Terri Orosco RN - 07/08/2024 11:05 AM EST Patients called back to office today. Spoke with spouse and all questions answered. Discussed need for holding blood thinner for EGD which spouse will reach out to local hand salter for instructions. * Telephone Encounter - Mary Anne Wing - 07/07/2024 9:56 AM EST Patient called in and would like someone to go over instructions with her regarding her upcoming EGD. Please call [phone] this is her phone number the number in epic is her husbands cell. Mary Anne Nielsen documented in this encounterHocking [facility]11-[facility]24 Telephone encounter Note * Telephone Encounter - Mary Anne Wing - 07/07/2024 9:56 AM EST Patient called in and would like someone to go over instructions with her regarding her upcoming EGD. Please call [phone] this is her phone number the number in epic is her husbands cell. Mary Anne Gia [facility]11-20-2024 Telephone encounter Note* Telephone Encounter - Fatimah Robbins RN - 07/07/2024 9:50 AM EST Verbal instructions given for EGD/ Instructions mailed to patient home on 07/07/2024 [facility]11-20-2024 Miscellaneous Notes* Telephone Encounter - Fatimah Robbins RN - 07/07/2024 9:50 AM EST Verbal instructions given for EGD/ Instructions mailed to patient home on 07/07/2024 documented in this encounterHocking Valley [facility]11-18-[facility]24 Evaluation note* Diagnosis Onset Date Resolution Status Admit Date Osteoarthritis of right knee noneact song July 05, 2024 1:18pm Atherosclerotic heart diseas e of [place] coronary artery without angina pectoris acute July 07, 2024 11:42am Hiatal hernia acute July 072023 11:42am Hyperlipidemia acute June 192023 11:42am Hypothyroidism acute June 192023 11:42am Presence of stent in coronar y artery acute July 07 11:42am Shortness of breath on exertion acute July 07 11:42am Vascular dementia acute 2023 11:42am aquired autoimmune encephalopathy chronic July [...] of repair of hiatal hernia acute October 14 025 1:03pm Hypothyroidism acute September 192024 1:03pm Seizure disorder acute October 14, 2024 1:03pm Difficulty swallowing chronic Feb ruary 2024 1:03pm Kyphoscoliosis deformity of spine chronic October 14 025 1:03pm RSD (reflex sympathetic dystrophy) chronic October 14 025 1:03pm Bronchiectasis chronic October 22, 2024 2:11pm Kyphoscoliosis deformity of spine chronic October 22, 2024 2:11pm [facility] Work Phone: 1(671) 297-588211-14-2024 Instructions* Patient Instructions* Laisha Lizarraga, DIGITAL RESEARCH ANALYST.[employer] PRES[employer]ANT LABORER - 07/01/2024 2:32 PM EST Continue the current medications as you have been 2. Contnue to be active, busy and cognitively/socially engaged 3. Be cautious with fall prevention 4. Continue to follow w/ Dr. De Paz 5. Consider seeing the Neuromuscular dept to have the numbness/tingling in feet evaluated [facility] -[phone] Follow up in ~3-6 months documented in this encounterHocking Valley [facility]11-14-2024 History of Present illness Narrative* Laisha Lizarraga APRN.ALBERT - 07/01/2024 1:45 PM EST Lauren Alcaraz 1940 [address] [facility] [facility] [address] [facility] [address] July 01, 2024 [facility] FOLLOW-UP NOTE Accompanied by: [...] struggling with chronic back pain/scoloisis/kyphosis- following w/ [facility] -- reporting increased fine motor difficulty, poor writing legibility, shakiness -- early satiety r/t hiatal hernia Previous plan included: Will look into whether there is a holistic and all-encompassing provider you could see who can synthesize all the data from your various specialists 2. Keep working hard at the therapy and PT! 3. See what the [facility] feels about the thoracic pain tomorrow- pending that- we may consider referring you to our spine dept 4. Keep the medications the same for now Today, Lauren and her spouse returns for a routine follow up visit. She did have a visit at the [facility] and she felt that not much [...] FLUTICASONE,) 50 mcg/actuation nasal spray Use 1 Matlock in each nostrilonce daily. donepezil (ARICEPT) 10 [...] 1,000 mcg intramuscularly once every month. Vitamin B-95-euoiinxvojtryr ammonium lactate (LAC-HYDRIN) 12 % lotion BD [...] from 2007 DATE: June 15, 2008 NO: [id number] Indication: Question of seizure Medications: None given [...] during this recording. CSF Alzheimer's Disease Biomarkers [facility] Phospho-tau) from 01/2020 A-Beta 42: 573 T-Tau: [...] have the numbness/tingling in feet evaluated better -[phone] Follow up in ~3-6 months I spent a total of 40 minutes on the date of service which included rvru-tv-viia patient care and counseling and educating the patient/spouse. Laisha Lizarraga, MSN, CAKE PULLER-C, CNRN CC: 1. No primary care provider on file., (fax) None documented in this encounterHocking [facility]11-14-2024 [facility] Nurse Note* Arun Buenrostro MA - 07/01/2024 [...] oz) LMP (LMP Unknown) BMI 19.87 kg/m [facility]11-14-2024 Nurse Note* Arun Buenrostro MA - [...] Unknown) BMI 19.87 kg/m documented in this encounterHocking Valley [facility] Hospital11-07-2024 History of Present illness Narrative* Jesika Fuentes, RT(R) - 06/24/2024 3:00 PM EST Radiology Service [...] PATIENT PRESENTS WITH AN IMPLANTABLE OR ATTACHED GETTERER: No ALLERGIES: Reviewed and unchanged CONTRAST ALLERGY: [...] 2024 TIME: 4:06 PM documented in this encounterHocking [facility]11-07-2024 [facility]Way[facility]11-01-2024 [facility]Way[facility]11-01-2024 History of Present illness Narrative* Taylor Forrest [...] - Stop all ASA and NSAID products, [place] 3 fish oil, herbal products such as ginko etc.for 7 days prior to procedure - Medication List reviewed. Patient agreed to hold Eliquis 3 days before procedure - Patient aware - must have a responsible hire car driver on the day of procedure. Patient stated good understanding and agreed with plan. Provided contact number for this RN. Patient agreed to call with any questions or concerns documented in this encounterHocking Valley [facility]11-01-2024 History and physical note * Anila [...] Date Arthritis Asthma Atherosclerotic heart disease of [place] coronary artery without angina pectoris Autoimmune disorder [...] No history of dysuria, frequency or incontinence DIGITAL MEDIA SPECIALIST: Negative for abnormal vaginal bleeding, abnormal vaginal [...] EGD Echo and cardiology evaluation at the [facility] CT Chest/Abd/Pel with IV con Creat Consult to Internal Medicine SIGNATURE: Anila De Paz MD PATIENT NAME: Lauren Alcaraz DATE: June 18, 2024 TIME: 1:12 PM [facility]11-01-2024 History and physical note* Anila De [...] Date Arthritis Asthma Atherosclerotic heart disease of [place] coronary artery without angina pectoris Autoimmune disorder [...] attack) PAST SURGICAL HISTORY Procedure Laterality Date CORONARY STENT ~1989 PAST SURGICAL HISTORY OF [...] No history of dysuria, frequency or incontinence DIGITAL MEDIA SPECIALIST: Negative for abnormal vaginal bleeding, abnormal vaginal [...] EGD Echo and cardiology evaluation at the [facility] CT Chest/Abd/Pel with IV con Creat Consult to Internal Medicine SIGNATURE: Anila De Paz MD PATIENT NAME: Lauren Alcaraz DATE: June 18, 2024 TIME: 1:12 PM documented in this encounterHocking [facility]10-31-2024 Telephone encounter Note * Telephone Encounter - Taylor Forrest RN - 06/17/2024 11:15 AM EDT Spoke briefly with pt's , Delroy. He was at the store an unable to go into detail. States that all pt's records and images were sent to [facility] - This RN is unable to locate. Last CT ABD per was in JUN 2023 at [facility]. She may have had an EGD years ago States that his 's situation is declining and her quality of life is affected. Called [facility] - only CT results they have on file are from Jun [address] Chest and CT abd results be pushed to [facility] for her appt tomorrow. CT ABD/pel w IV contrast 07/12/22 Impression: 1.) stable right inguinal hernia. Small bowel present, no obstruction seen. 2.) Large Hiatal hernia 3.) Dilatation of CBD - no obvious stones [facility]10-31-2024 Miscellaneous Notes* Telephone Encounter - Taylor Forrest RN - 06/17/2024 11:15 AM EDT Spoke briefly with pt's , Delroy. He was at the store an unable to go into detail. States that all pt's records and images were sent to [facility] - This RN is unable to locate. Last CT ABD per was in JUN 2023 at [facility]. She may have had an EGD years ago States that his 's situation is declining and her quality of life is affected. Called [facility] - only CT results they have on file are from Jun [address] Chest and CT abd results be pushed to [facility] for her appt tomorrow. CT ABD/pel w IV contrast 07/12/22 Impression: 1.) stable right inguinal hernia. Small bowel present, no obstruction seen. 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 Patient was recently in [place]'s emergency department underwent an abdomen and pelvis [...] Date Arthritis Asthma Atherosclerotic heart disease of [place] coronary artery without angina pectoris Autoimmune disorder [...] daily. azelastine 0.1% nasal spray Use 1 Matlock in each nostril two times a day. cetirizine (ZYRTEC) 10 mg tablet Take 10 mg by mouth once daily as needed. diazePAM (VALIUM) 2 mg tablet Take 2 mg by mouth at bedtime as needed for anxiety. fluticasone (ALLERGY RELIEF, FLUTICASONE,) 50 mcg/actuation nasal spray Use 1 Matlock in each nostrilonce daily. valACYclovir (VALTREX) 500 [...] 1,000 mcg intramuscularly once every month. Vitamin L-41-vrmjbylhefluza ammonium lactate (LAC-HYDRIN) 12 % lotion BD [...] entered by the nurse and reviewed by me Nursing Notes: Marian José RN 05/17/2024 3:54 [...] going to get a referral up to [facility] for this large hiatal hernia. Hopefully [...] Susan Squires III, MD documented in this encounterHocking [facility]09-30-2024 Nurse Note* Marian José, RN - 05/17/2024 3:52 PM EDT REVIEW [...] 06/25/2018 Last Colonoscopy: never Marian José RN [facility]09-30-2024 Nurse Note* Marian José RN - [...] never Marian José RN documented in this encounterHocking Valley [facility] Hospital09-16-2024 NoteDate of Procedure 05/03/2024. Medicaid Service Coordinator Information was not able due to head position . NFL Interpretation Right Eye Diffuse loss. Left Eye Diffuse loss. Interval Change Right Eye Stable. Left Eye Stable.[id number] NoteWayne Healthcare [facility] Campus09-16-2024 History of Present illness Narrative* Humza Camejo [...] - exotropia on cover/uncover - refer to oil heat technician for prism # dementia - possible limbic-associated [...] of its relevant components. documented in this encounterHocking Valley [facility] Hospital08-08-2024 Instructions* Patient Instructions* Laisha Lizarraga APRN.ALBERT - 03/25/2024 2:26 PM EDT Will look into whether there is a holistic and all-encompassing provider you could see who can synthesize all the data from your various specialists 2. Keep working hard at the therapy and PT! 3. See what the [facility] feels about the thoracic pain tomorrow- pending that- we may consider referring you to our spine dept 4. Keep the medications the same for now Follow up pending the results from the above-- potentially 3 months documented in this encounterHocking Valley [facility] Hospital08-08-2024 History of Present illness Narrative* Laisha Lizarraga APRN.ALBERT - 03/25/2024 1:45 PM EDT Lauren Alcaraz 1940 [address] [facility] [address] [facility] [address] March 25, 2024 [facility] FOLLOW-UP NOTE Accompanied by: spouse Delroy Alcaraz is a pleasant 83 year old [...] of T/L spine performed on 03/19 at [facility] and they will see the doctor [...] from 2007 DATE: June 15, 2008 NO: [id number] Indication: Question of seizure Medications: None given [...] during this recording. CSF Alzheimer's Disease Biomarkers [facility] Phospho-tau) from 01/2020 A-Beta 42: 573 T-Tau: [...] therapy and PT! 3. See what the [facility] feels about the thoracic pain tomorrow- pending that- we may consider referring you to our spine dept 4. Keep the medications the same for now Follow up pending the results from the above-- potentially 3 months I spent a total of 40 minutes on the date of service which included iwxl-am-ocyy patient care and counseling and educating the patient/spouse. Laisha Lizarraga, MSN, CAKE PULLER-C, CNRN CC: 1. No primary care provider on file., (fax) None documented in this encounterHocking Valley [facility]08-08-2024 NoteWay[facility]08-07-2024 Telephone encounter Note* Telephone Encounter - Bety Henry - 03/24/2024 1:36 PM EDT Request a 30 day emergency supply (script) of Latanoprost be sent to the [facility] . I will be out of this medication in 3 to 4 days and [facility] will not fill the existing script until 04 April and I will not receive it until about April 16. Please advise me that this message has been received and [facility]. Thank you, Humza Carrington MD filed at [...] - exotropia on cover/uncover - refer to oil heat technician for prism # dementia - possible limbic-associated [...] of its relevant components. Humza Camejo MD [facility] Work Phone: 1(232) 854-292308-07-2024 Miscellaneous Notes* Telephone Encounter - Bety Henry - 03/24/2024 1:36 PM EDT Request a 30 day emergency supply (script) of Latanoprost be sent to the [place] [facility] . I will be out of this medication in 3 to 4 days and [facility] will not fill the existing script until 04 April and I will not receive it until about April 16. Please advise me that this message has been received and the script sent to [facility]. Thank you, Humza Carrington MD filed at [...] - exotropia on cover/uncover - refer to oil heat technician for prism # dementia - possible limbic-associated [...] components. Humza Camejo MD documented in this encounterHocking [facility] Hospital07-26-2024 Telephone encounter Note * Telephone Encounter - Laisha Lizarraga APRN.CNP - 03/12/2024 12:08 PM EDT The following approved medication requests have been transmitted electronically. Requested Prescriptions Signed Prescriptions Disp Refills donepezil (ARICEPT) 10 mg tablet 90 tablet 3 Sig: Take 1 tablet by mouth daily with breakfast. Authorizing Provider: LAISHA LIZARRAGA APRN.CNP [facility]07-26-2024 Miscellaneous Notes* Telephone Encounter - Laisha Lizarraga APRN.CNP - 03/12/2024 12:08 PM EDT The following approved medication requests have been transmitted electronically. Requested Prescriptions Signed Prescriptions Disp Refills donepezil (ARICEPT) 10 mg tablet 90 tablet 3 Sig: Take 1 tablet by mouth daily with breakfast. Authorizing Provider: LAISHA LIZARRAGA APRN.CNP documented in this encounterHocking [facility]05-10-2024 Telephone encounter Note * Telephone Encounter [...] - exotropia on cover/uncover - refer to oil heat technician for prism # dementia - possible limbic-associated [...] of its relevant components. Humza Camejo MD [facility] Work Phone: 1(532) 606-469205-10-2024 Miscellaneous Notes* Telephone Encounter - Moody PowerBety - 12/26/2023 3:53 PM EDT Patient's request [...] - exotropia on cover/uncover - refer to oil heat technician for prism # dementia - possible limbic-associated [...] components. Humza Camejo MD documented in this encounterHocking Valley [facility] Hospital05-10-2024 Telephone encounter Note * Telephone Encounter - Romero Ojeda PA-C - 12/26/2023 10:22 AM EDT The following approved medication requests have been transmitted electronically. Requested Prescriptions Signed Prescriptions Disp Refills donepezil (ARICEPT) 10 mg tablet 90 tablet 3 Sig: TAKE 1 TABLET BY MOUTH DAILY WITH BREAKFAST Authorizing Provider: LAISHA LIZARRAGA Ordering User: ROMERO OJEDA PA-C [facility] Work Phone: 1(335) 733-978005-10-2024 Miscellaneous Notes* Telephone Encounter - Romero Ojeda PA-C - 12/26/2023 10:22 AM EDT The following approved medication requests have been transmitted electronically. Requested Prescriptions Signed Prescriptions Disp Refills donepezil (ARICEPT) 10 mg tablet 90 tablet 3 Sig: TAKE 1 TABLET BY MOUTH DAILY WITH BREAKFAST Authorizing Provider: LAISHA LIZARRAGA Ordering User: ROMERO OJEDA PA-C documented in this encounterHocking Valley [facility] Hospital04-04-2024 Discharge summary Author Aquiles Fang [facility] November 20, 2023 8:31am Note Date/Time November 20, 2023 8:31 am [facility] Physical Therapy [facility] [address] [place] [address] [address] [place] [address] / REHABILITATION SERVICES DISCHARGE SUMMARY MR#: [id number] Acct: [id number] Name: LAUREN ALCARAZ Rep #: [id number] : 1940 83 From: Aquiles DAVIS T Referring Dr.: Dr. Porfirio Bloom MD Status: REG RCR Insurance: MEDICARE PART A B [id number] Patient Information Patient Information: LAUREN ALCARAZ was [...] was in need and Ireferred her to [employer] of fitting. I did talk with her [...] <Electronically signed by Aquiles Fang DPT> 11/20/23 0831 CC: Dr. Porfirio Bloom MD; Dr. 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 This will likely make your vision blurry for several hours, and you should strongly consider bringing a hire car driver. Tmax: <21 per outside; Pachy: 550, [...] - exotropia on cover/uncover - refer to oil heat technician for prism # dementia - possible limbic-associated [...] components. Humza Camejo MD documented in this encounterHocking Valley [facility] Hospital03-11-2024 History of Present illness Narrative* Humza [...] - exotropia on cover/uncover - refer to oil heat technician for prism # dementia - possible limbic-associated [...] components. Humza Camejo MD documented in this encounterHocking [facility] Hospital02-29-2024 Instructions* Patient Instructions* Laisha Lizarraga APRN.CNP [...] up in 4-6 months documented in this encounterHocking Valley Community Hospital02-29-2024 History of Present illness Narrative* Laisha Lizarraga APRN.CNP - 10/16/2023 2:30 PM EST Lauren Alcaraz 1940 [address] [facility] [address] October 16, 2023 [facility] FOLLOW-UP NOTE Accompanied by: spouse Delroy Alcaraz is a pleasant 83 year old [...] from 2007 DATE: June 15, 2008 NO: [id number] Indication: Question of seizure Medications: None given [...] on the date of service which included [id number]-iu-[id number] patient care and counseling and educating the patient/spouse. Laisha Lizarraga, MSN, CAKE PULLER-C, CNRN CC: 1. No primary care provider on file., (fax) None documented in this encounterHocking Valley [facility] Hospital10-30-2023 Instructions* Patient Instructions* Laisha Lizarraga APRN.WOOD PRESERVING PLANT LABORER - 06/16/2023 2:32 PM EDT See what [...] up in 4-6 months documented in this encounterHocking Valley [facility] Hospital10-30-2023 History of Present illness Narrative* Laisha Lizarraga APRN.ALBERT - 06/16/2023 1:45 PM EDT Lauren Alcaraz 1940 [address] [facility] [address] [facility] [address] June 16, 2023 [facility] FOLLOW-[facility] NOTE Accompanied by: spouse Delroy MERCY Alcaraz is a pleasant 82 year old [...] vision lately, which she has seen her Fitter/Welder about and who has ordered her a [...] from 2007 DATE: June 15, 2008 NO: [id number] Indication: Question of seizure Medications: None given [...] during this recording. CSF Alzheimer's Disease Biomarkers ([facility] Phospho-tau) from 01/2020 A-Beta 42: 573 T-Tau: [...] on the date of service which included [id number]-zh-pxlg patient care and counseling and educating the patient/spouse. Laisha Lizarraga, MSN, CAKE PULLER-C, CNRN CC: 1. No primary care provider on file., (fax) None documented in this [facility]10-30-2023 Nurse Note* Lisbeth Rob - 06/16/2023 [...] Unknown) BMI 21.41 kg/m documented in this [facility]10-06-2023 Miscellaneous Notes* Telephone Encounter - Romero Ojeda PA-C - 05/23/2023 4:04 PM EDT The following approved medication requests have been transmitted electronically. Requested Prescriptions Signed Prescriptions Disp Refills donepezil (ARICEPT) 5 mg tablet 90 tablet 1 Sig: Take 1 tablet by mouth daily with breakfast. Authorizing Provider: LAISHA LIZARRAGA Ordering User: ROMERO OJEDA PA-C documented in this [facility]08-22-2023 Miscellaneous Notes* Telephone Encounter - Laisha Lizarraga APRN.CNP - 04/08/2023 4:32 PM EDT The following approved medication requests have been transmitted electronically. Requested Prescriptions Signed Prescriptions Disp Refills donepezil (ARICEPT) 5 mg tablet 90 tablet 1 Sig: Take 1 tablet by mouth daily with breakfast. Laisha Lizarraga APRN.CNP documented in this encounterHocking Valley Community Hospital08-16-2023 Evaluation note* Diagnosis Onset Date Resolution Status Pain of left lower extremity acute Bronchiectasis acute Hypoxemia acute ERIS (obstructive sleep apnea) chronic Breast lump on left side at 1 o'clock position acute Left knee pain acute Restless leg syndrome chroni c Atherosclerotic heart diseas e of [place] coronary artery without angina pectoris acute Essential hypertension acute Lightheadedness acute Hyperlipidemia chronic Mass of upper inner quadrant of left breast acute Contusion of thoracic wall a cute Lumbar contusion acute Atherosclerotic heart diseas e of [place] coronary artery without angina pectoris acute Cancer acute Essential hypertension acute Hyperlipidemia acute Hypothyroidism acute Mass of upper inner quadrant of left breast acute Presence of stent in coronary artery acute Right inguinal hernia acute Vitamin B 12 deficiency acut e Gastroesophageal reflux disease chronic ERIS (obstructive sleep apnea) chronic Restless leg syndrome chroni c Sternal deformity acute Bee sting acute [facility] Work Phone: 1(643) 723-260607-18-2023 Evaluation note* Diagnosis Onset Date Resolution Status Pain of left lower extremity acute Bronchiectasis acute Hypoxemia acute ERIS (obstructive sleep apnea) chronic Breast lump on left side at 1 o'clock position acute Left knee pain acute Restless leg syndrome chroni c Atherosclerotic heart diseas e of [place] coronary artery without angina pectoris acute Essential hypertension acute Lightheadedness acute Hyperlipidemia chronic Mass of upper inner quadrant of left breast acute Contusion of thoracic wall a cute Lumbar contusion acute Atherosclerotic heart diseas e of [place] coronary artery without angina pectoris acute Cancer acute Essential hypertension acute Hyperlipidemia acute Hypothyroidism acute Mass of upper inner quadrant of left breast acute Presence of stent in coronary artery acute Right inguinal hernia acute Vitamin B 12 deficiency acut e Gastroesophageal reflux disease chronic ERIS (obstructive sleep apnea) chronic Restless leg syndrome chroni c Sternal deformity acute [facility] Work Phone: 1(408) 430-844106-28-2023 Discharge summary Author Jerri Boyd [facility] February 12, 2023 1:48pm Note Date/Time February 12, 2023 1:48 pm [facility] Occupational Therapy [facility] [address] [place] [address] / REHABILITATION SERVICES DISCHARGE SUMMARY MR#: [id number] Acct: [id number] Name: LAUREN ALCARAZ Rep #: [id number] : 1940 82 From: Jerri MACARIO/MYLA Valle Referring Dr.: Dr. Chema Perry MD Status: [...] Improvement % Improvement: 15 Objective Objective/Function: right frame repairer strength 45# left 30# left lateral pinch 4# and tripod pinch 6# pt has not made gains in left frame repairer strength and at this time is d/c. with HEP. pt has hx of left intra-articular fx of left distal radius as well as left thumbinstability this may be limiting pts strength as her frame repairer strength is same from 2021 - pt [...] please fell free to call me at [phone]. Thank you for the referral of this patient. Sincerely, RENALDO Encarnacion/SHILOH ValleT <Electronically signed by Jerri MACARIO/MYLA Valle> 02/12/23 1348 CC: Dr. Chema Perry MD ~ MK Signed [facility] Work Phone: 1(695) 346-117206-06-2023 Discharge summary Author Gunnar Graves [facility] January 21, 2023 2:08pm Note Date/Time January 21, 2023 2:08p m [facility] Physical Therapy [facility] [address] [place] [address] / REHABILITATION SERVICES DISCHARGE SUMMARY MR#: [id number] Acct: [id number] Name: LAUREN ALCARAZ Rep #: [id number] : 1940 82 From: Gunnar Graves PT, ATC Referring Dr.: Dr. Chema Perry MD Status: REG RCR Insurance: MEDICARE PART A B [place] [id number] It has been my pleasure to treat [...] please feel free to call me at [phone]. Thank you for the referral of thispatient. Sincerely, Gunnar Graves PT, ATC Balance/Gait/Functional tests - Balance/Special Test Scores Lower Extremity Functional Score: 19 <Electronically signed by Gunnar Graves PT ATC> 01/21/23 1408 CC: Dr. Chema Perry MD; Dr. Arun Ramos MD ~ [facility] Signed [facility] Work Phone: 1(668) 843-661604-19-2023 History of Present illness Narrative* Dina Jerry, RT(R) - 12/04/2022 1:30 PM EDT Radiology [...] RT Getachew(R) December 04, 2022 2:15 PM documented in this encounterHocking [facility]03-29-[facility]23 Instructions* Patient Instructions* Laisha Lizarraga APRN.CNP - 11/13/2022 1:56 PM EDT Notify me [...] last scan in 2019 - can call [phone] or schedule at the [facility] desk 4. Please ambulate with caution! Follow up in about 3 months to recheck on things or sooner if tests are done earlier documented in this encounterHocking Valley [facility]03-29-2023 Nurse Note* Lisbeth Rob - 11/13/2022 [...] Unknown) BMI 22.22 kg/m documented in this encounterHocking Valley [facility] Hospital03-29-2023 History of Present illness Narrative* Laisha Lizarraga APRN.[employer]ORER - 11/13/2022 7:56 AM EDT Lauren Alcaraz 1940 [address] [place] [address] November 13, 2022 [facility] [...] in the interim then transferredto a personal coach, and is not using a wheelchair today. She is using a Rollator today. Her goal is to walk unassisted. She has also been going to Cognitive/Speech therapy and feels it may be helping- someone down in the [place] area linked w/ her other therapies She [...] by Laisha Lizarraga APRN.CNP PATIENT-ENTERED DATA Patient-Reported 11/06/2022 07/18/2022 Where are you currently living? Home / Private residence Home / Private residence Are you using any community resources to help care for yourself? No circuit board inspector Has your caregiver accompanied you today? Yes [...] from 2007 DATE: June 15, 2008 NO: [id number] Indication: Question of seizure Medications: None given [...] last scan in 2019 - can call [phone] or schedule at the [facility] desk 4. Please ambulate with caution! Follow up in about 3 months to recheck on things or sooner if tests are done earlier I spent a total of 40 minutes on the date of service which included [id number] patient care and counseling and educating the patient/spouse. Laisha Lizarraga, MSN, CAKE PULLER-C, CNRN CC: 1. Chema Perry MD, (fax) [phone] documented in this encounterHocking Valley [facility]03-01-[address] Keith [facility] October 16, 2022 8:20pm Note Date/Time October 16, 2022 6:[address] [facility] Medical Records Department [address] [place] [address] Emergency Department Summary 10/16/22 MR#: [id number] Acct: [id number] Name: LAUREN ALCARAZ Rep #: [id number] : 1940 82 From: Cal Keith MD PCP: Dr. Chema Perry MD Status:REG ER Location: ED HPI History of Present Illness Chief Complaint: Upper Extremity Injury Narrative Narrative: 82-year-old female, essentially [id number]-faadmpub, presents with pain and swelling of her [...] with movement. It is relieved by nothing. [facility] Medical History aquired autoimmune encephalopathy Arthritis Asthma Atherosclerotic heart disease of [place] coronary artery without angina pectoris Back pain [...] mg/mL subcutaneous syringe (Prolia) 60 mg subcut [id number] 06/07/22 [History Last Taken Unknown] famotidine 10 [...] Prolia 60 mg/mL syringe 60 mg subcut [id number] d-mannose 500 mg capsule 500 mg PO [...] As soon as possible Shiraz Blanchard DO [[facility] Staff - Active Staff] - 1 Day Disposition Disposition: Home, Self Care What to do if you have Problems For any increased pain, shortness of breath, bleeding, nausea or vomiting, chestpain, or any unexpected problems, contact your Primary Care Provider. Call [facility] ([phone]) or report to the closest Emergency Room. Call 911 if necessary. 10/16/222019 <Electronically signed by Cal Keith MD> Cosigner Signature (if applicable): CC: Dr. Ernesto Logan DO; Dr. Chema Perry MD; Dr. Shiraz Blanchard DO ~ Signed [facility] Work Phone: 1(773) 299-173912-29-2022 Discharge summary Author Gunnar Hartzler [facility] August 15, 2022 12:04pm Note Date/Time August 15, 2022 12:04pm [facility] Physical Therapy [facility] [address] [place] [address] / REHABILITATION SERVICES DISCHARGE SUMMARY MR#: [id number] Acct: [id number] Name: LAUREN ALCARAZ Rep #: [id number] : 1940 81 From: Gunnar Graves PT, ATC Referring Dr.: Dr. Arun Ramos MD Status: REG RCR Insurance: MEDICARE PART A B [place] [id number] It has been my pleasure to treat [...] please feel free to call me at [phone]. Thank you for the referral of thispatient. Sincerely, Gunnar Graves, PT, ATC Balance/Gait/Functional tests - Balance/Special Test Scores Lower Extremity Functional Score: 41 <Electronically signed by Gunnar Graves PT, ATC> 08/15/22 1209 CC: Dr. Chema Perry MD; Dr. Arun Ramos MD ~ [facility] Signed [facility] Work Phone: 1(446) 823-812908-25-2022 Instructions* Patient Instructions* Laisha Lizarraga APRN.CNP - 04/11/2022 1:39 PM EDT Let's consider having you try some Cognitive Therapy (cognitive-linguistic speech therapy) sessionsthat may help with some of the cognitive issues that you're still dealing with- may help with word-finding, mental calculation, and other things. The main scheduling number is [phone] and some of the therapists are below: Jeny Leonard, GROUTER HELPER at [facility] - call [phone] Sydni Johnson, GROUTER HELPER -- [facility], Desk C22 (appt [phone]) Kinza Handley, GROUTER HELPER at [facility] ([phone]) Kenneth Reinoso) Tierra at [facility] ([phone]) Sandra Goode at [facility] ([phone]) Ale Lopez, GROUTER HELPER at [facility] ([phone]) Emily Ruvalcaba, GROUTER HELPER at [facility] ([phone] ph; [phone] fax) Sydni Moreno, GROUTER HELPER -- [facility] ([phone]) Chata Patel, GROUTER HELPER -- [facility] ([phone]) 2. I'd hold off on starting a medication like donepezil (Aricept) - I don't think this stands to help much 3 . try to keep the back pain under control however they recommend 4. Continue the cranberry supplement and watch for UTIs Follow up in about 6 months to recheck on things documented in this encounterHocking Valley [facility]08-25-2022 History of Present illness Narrative* Laisha Lizarraga APRN.CNP - 04/11/2022 1:00 PM EDT Lauren Alcaraz 1940 [address] [facility] [address] April 11, 2022 [facility] FOLLOW-UP NOTE Accompanied by: [...] since November- was previously staying at [facility] -- some gait-freezing noted from the in-home PT therapists No changes in plan of care were made at last visit Today, Lauren and her spouse Delroy return for a follow up visit She actually did have a fall at the end of February - they were going to see the opera in [place] and she got out of the car [...] do still have a caregiver 5-days/week from -4p She continues to take memantine 10mg BID [...] by Laisha Lizarraga APRN.ALBERT PATIENT-ENTERED DATA Patient-Reported 04/08/2022 01/17/2022 Where are [...] from 2007 DATE: June 15, 2008 NO: [id number] Indication: Question of seizure Medications: None given [...] other things. The main scheduling number is [phone] and some of the therapists are below: Jeny Leonard, GROUTER HELPER at [facility] - call [phone] Sydni Johnson, GROUTER HELPER -- [facility], Desk C22 (appt [phone]) Kinza Handley, GROUTER HELPER at [facility] ([phone]) Kenneth Mayorga (Tricia) at [facility] ([phone]) Sandra Goode at [facility] ([phone]) Ale Lopez, GROUTER HELPER at [facility] ([phone]) Emily Ruvalcaba, GROUTER HELPER at [facility] ([phone] ph; [phone] fax) Sydni Moreno, GROUTER HELPER -- [facility] ([phone]) Chata Patel, GROUTER HELPER -- [facility] ([phone]) 2. I'd hold off on starting a [...] on the date of service which included ymue-xu-srrb patient care and counseling and educating the patient/spouse. Laisha Lizarraga, OSORIO, CAKE PULLER-C, CNRN documented in this encounterHocking Valley [facility]08-25-2022 Nurse Note* Layne Leon LPN - [...] Unknown) BMI 23.63 kg/m documented in this encounterHocking Valley [facility] Hospital06-08-2022 Instructions* Patient Instructions* Laisha Lizarraga APRN.CNP - 01/23/2022 11:30 AM EDT 1. Continue [...] to recheck on things documented in this encounterHocking Valley [facility]06-08-2022 History of Present illness Narrative* Mitchel Muse MD - 01/23/2022 11:13 AM EDT Lauren Alcaraz 1940 [address] [facility] [address] January 23, 2022 [facility] FOLLOW-UP NOTE Accompanied by: [...] She had spent some time at [facility] and some of her medications were discontinued by her Carbon Coater Machine Operator Dr. Ramos. Today, Lauren and her spouse Delroy return for a routine follow up visit. She has been back home since mid-November - was previously staying at [facility]. Delroy reports that the Physical Therapists [...] Never Social History reviewed by Laisha Lizarraga APRN.[employer] LABORER PATIENT-ENTERED DATA Patient-Reported 01/17/2022 11/07/2021 Where are you currently living? Home / Private residence intermediate / [facility] facility Are you using any community resources [...] from 2007 DATE: June 15, 2008 NO: [id number] Indication: Question of seizure Medications: None given [...] on the date of service which included yxvt-uo-reme patient care and counseling and educating the patient/spouse. Dr. Muse was present for this visit and is in agreement with the plan stated above. He did perform the neurological exam. Laisha Lizarraga, MSN, CAKE PULLER-C, CNRN History, previous evaluations and examination reviewed [...] which included preparing to see the patient, jkuk-rb-xivm patient care, completing clinical documentation, obtaining and/or reviewing separately obtained history, performing a medically appropriate examination, counseling and educating the pat ient/family/caregiver and ordering medications, tests, or procedures. documented in this [facility]06-08-2022 Nurse Note* Layne Leon LPN - [...] Unknown) BMI 24.04 kg/m documented in this [facility]03-29-2022 Instructions* Patient Instructions* Laisha Lizarraga APRN.CNP [...] Dr. Muse in January documented in this [facility]03-29-2022 History of Present illness Narrative* Laisha Lizarraga APRN.CNP - 11/13/2021 11:30 AM EDT Lauren Alcaraz 1940 [address] [facility] [address] November 13, 2021 [facility] FOLLOW-UP NOTE Accompanied by: [...] hospitalized and transferred to transitional care in [place] where she contracted Covid-19, she remained at that care facility for approximately one month.. Upon leaving transitional care, pt was returned to hospital d/t spouses inability to care at the level required, pt transferred [facility] [place] where she currently has been since. Pt [...] 11/07/2021 10/04/2021 Where are you currently living? intermediate / [facility] facility Home / Private residence Are you using any community resources to help care for yourself? No circuit board inspector Has your caregiver accompanied you today? Yes [...] Normocephalic/atraumatic. Neurological Exam: Cognition: alert and cooperative [place] Cognitive Assessment (MoCA) Version 1 Total Score: 02/14 Visuospatial/Executive: 0/5 Namin/3 Attention: 08/23 Language: 08/20 Abstraction: 0/2 Delayed Recall: 08/22 Orientation: 08/23 [...] from 2007 DATE: June 15, 2008 NO: [id number] Indication: Question of seizure Medications: None given [...] on the date of service which included aiqw-tw-qptd patient care and counseling and educating the patient/spouse. This note was generated with the assistance of Isma Torres, WO[employer]ING [employer] LABORER Student. I was present for the entirety of the visit and participated in the interview and formulation of plan. Laisha Lizarraga, MSN, CAKE PULLER-C, CNRN documented in this encounterHocking [facility]03-29-2022 Nurse Note* Layne Leon LPN - [...] Unknown) BMI 25.04 kg/m documented in this encounterHocking Valley Community HospitalChief complaint+Reason for visit Narrative* Chief Complaint ELBOW 4 M FU COVID EXPOSURE/WANTS TEST COVID-19 INT LABS LEFT KNEE PAIN XRAY LLE PAIN STAT 6 M FU knee Pain 6 m fu LEFT BREAST MASS LUMP IN L BREAST XRAY POST FALL/BACK PAIN/SWELLING XRAY CONGITIVE COMM,BALANCE,WEAKNESS RX HERE 6 M FU Reason for Visit Atherosclerotic hear t disease of [place] coronary artery without angina pectoris Debility Essential [...] Restless leg syndrome Atherosclerotic heart disease of [place] coronary artery without angina pectoris Essential hypertension Lightheadedness Hyperlipidemia Mass of upper inner quadrant of left breast Contusion of thoracic wall Lumbar contusion Atherosclerotic heart disease of [place] coronary artery without angina pectoris Cancer Essential hypertension Hyperlipidemia Hypothyroidism Mass of upper inner quadrant of left breast Presence of stent in coronary artery Right inguinal hernia Vitamin B 12 deficiency Gastroesophageal reflux disease ERIS (obstructive sleep apnea) Restless leg syndrome [facility] Work Phone: Chief complaint+Reason for visit [...] for Visit Atherosclerotic hear t disease of [place] coronary artery without angina pectoris Debility Essential [...] Restless leg syndrome Atherosclerotic heart disease of [place] coronary artery without angina pectoris Essential hypertension Lightheadedness Hyperlipidemia Mass of upper inner quadrant of left breast Contusion of thoracic wall Lumbar contusion Atherosclerotic heart disease of [place] coronary artery without angina pectoris Cancer Essential hypertension Hyperlipidemia Hypothyroidism Mass of upper inner quadrant of left breast Presence of stent in coronary artery Right inguinal hernia Vitamin B 12 deficiency Gastroesophageal reflux disease ERIS (obstructive sleep apnea) Restless leg syndrome [facility] Work Phone: Chief complaint+Reason for visit [...] Restless leg syndrome Atherosclerotic heart disease of [place] coronary artery without angina pectoris Essential hypertension Lightheadedness Hyperlipidemia Mass of upper inner quadrant of left breast Contusion of thoracic wall Lumbar contusion Atherosclerotic heart disease of [place] coronary artery without angina pectoris Cancer Essential hypertension Hyperlipidemia Hypothyroidism Mass of upper inner quadrant of left breast Presence of stent in coronary artery Right inguinal hernia Vitamin B 12 deficiency Gastroesophageal reflux disease ERIS (obstructive sleep apnea) Restless leg syndrome Sternal deformity [facility] Work Phone: Discharge summary Author Isma Bustamante [facility] Note Date/Time February 03, 2025 7:58 am [facility] Medical Records Department [address] [place] [address] Emergency Department Summary 02/03/25 MR#: [id number] Acct: [id number] Name: LAUREN ALCARAZ Rep #: [id number] : 1940 84 From: Isma Bustamante DO PCP: Dr. Chema Perry MD Status:REG ER Location: ED HPI History of Present Illness Chief Complaint: Upper Extremity Injury Informant: patient and spouse/S.O. Narrative Narrative: Patient is a 84-year-old female with past medical history of hypertension hyperlipidemia hypothyroidism and previous DVT currently on Eliquis. She statesshe is a night owl and she was getting up off the floor to use the restroom and braced herself against the chair. She states the chair is a small chair and it turned as she went to stand causing her to lose her balance and fall landing on her right shoulder. She denies striking her head or any loss of consciousness. She states she was able to get back up following the fall but noticed that her shoulder was swollen and appeared deformed. She has concern for fracture or dislocation and secondary to this comes in for evaluation. She denies any otherinjury [facility] History (Updated 02/03/25 @ 07:[address] Isma Bustamante DO) Leg edema Open wound of right lower extremity Contusion [...] shoulder Presence of stent in coronary artery (~1989) Atherosclerotic heart disease of [place] coronary artery without angina pectoris Essential hypertension [...] disease Dementia Partial complex seizures Home Medications ?Medication ?Instructions ?Recorded ?Last Taken ?Type L.acidophil-L.casei-B.bifid-B.longum-FOS 1 cap PO MILTON Y Supplement 09/02/21 10/05/21 History 2 billion cell-50 mg capsule (Probiotic Blend) aspirin 81 mg tablet,delayed 81 mg PO DAILY 01/10/22 U nknown History release (Adult Aspirin Regimen) d-mannose 500 mg capsule 500 mg PO DAILY 06/07/22 Unk nown History famotidine 10 mg tablet 10 mg PO BID 06/07/22 Unknow n History multivitamin 1 tab PO DAILY 06/07/22 Unkn own History mirabegron 50 mg tablet,extended 50 mg PO QHS Check wi th primary 01/29/23 Unknown History release 24 hr (Myrbetriq) doctor albuterol sulfate 2.5 mg/3 mL 2.5 mg (3 mL) inhalation Q6H PRN 04/07/23 Unknown Rx (0.083 %) solution for nebulization Sob &/Or Wheezing #180 mL syringes BD ECLIPSE 04/11/23 Unknown History latanoprost 0.005 % eye drops 1 drp ophthalmic (eye) D AILY 08/13/23 Unknown History (Xalatan) donepezil 5 mg tablet (Aricept) 10 mg (2 x 5 mg) PO DA ROXI #90 tabs 11/12/23 Unknown Rx nitroglycerin 0.4 mg sublingual 0.4 mg sublingual Q5-1 5M PRN chest 11/12/23 Unknown Rx tablet pain #25 tabs BD Sry/needle eclips See Rx Instructions IM .COMP SANDRA 02/23/24 Unknown Rx #12 ea azelastine 137 mcg (0.1 %) nasal 2 spray intranasal BI D 03/16/24 Unknown History spray cetirizine 10 mg capsule (Zyrtec) 10 mg PO DAILY PRN a llergy symptoms 03/16/24 Unknown History fluticasone propionate 50 1 spray intranasal DAILY Unknown History mcg/actuation nasal spray,suspension (Allergy Relief (fluticasone)) PEP device #1 ea 04/06/24 Unknown Rx apixaban 5 mg tablet (Eliquis) 5 mg PO BID #180 tabs 1 Unknown Rx atorvastatin 40 mg tablet See Rx Instructions .Route 1 Unknown Rx .COMPLEX #90 tabs levothyroxine 50 mcg tablet 50 mcg PO DAILY Thyroid #9 0 tabs 06/08/24 Unknown Rx memantine 10 mg tablet 10 mg PO BID Alzheimer's #18 0 tabs 06/08/24 Unknown Rx pramipexole 0.5 mg tablet 0.5 mg PO BID #180 tabs 05/19 10/11 Unknown Rx vortioxetine 20 mg tablet 20 mg PO DAILY DEPRESSION #9 0 tabs 06/08/24 Unknown Rx (Trintellix) brimonidine 0.2 % eye drops drp ophthalmic (eye) QHS 0 10/14/24 Unknown History olopatadine 0.6 % nasal spray 2 spray intranasal DAILY 10/14/24 Unknown History pantoprazole 40 mg tablet,delayed 40 mg PO DAILY 10/14 Unknown History release potassium chloride 20 mEq 20 meq PO DAILY 10/14/24 Unk nown History tablet,extended release(part/cryst) (Klor-Con M) furosemide 20 mg tablet 10 mg (1/2 x 20 mg) PO DAILY PRN 11/23/24 Unknown Rx edema #30 tabs lacosamide 100 mg tablet (Vimpat) 100 mg PO BID #180 t abs 12/20/24 Unknown Rx cyanocobalamin (vitamin B-12) 1,000 mcg IM QMONTH #10 mL 01/24/25 Unknown Rx 1,000 mcg/mL injection solution denosumab 60 mg/mL subcutaneous 60 mg subcut [id number] #1 mL 01/24/25 Unknown Rx syringe (Prolia) diazepam 2 mg tablet (Valium) 2 mg PO TID PRN Muscle p ain/spasm 02/03/25 Unknown Rx 5 days #15 tabs gabapentin 100 mg capsule 300 mg PO QHS restless leg(s ) 02/03/25 Unknown History hydromorphone 2 mg tablet 2 mg PO Q6H PRN pain 5 days #20 02/03/25 Unknown Rx (Dilaudid) tabs Allergy/AdvReac Type Severity Reaction Status Date / Time doxycycline Allergy Mild Vomiting Verified 02/03/25 04:07 acetaminophen (From Allergy Other Verified 02/03/25 04:07 Darvocet-N) lamotrigine (From Lamictal) Allergy Lip Verified 02/03/25 04:07 Swelling moxifloxacin HCl (From Allergy Other Verified 02/03/25 04:07 Avelox) propoxyphene napsylate (From Allergy Other Verified 02/03/25 04:07 Darvocet-N) hydrocodone AdvReac Severe Confusion Verified 02/03/25 04:07 oxycodone (From Percocet) AdvReac Severe Confusion Verified 02/03/25 04:07 zolpidem tartrate (From AdvReac Other Verified 02/03/25 04:07 Ambien) Family History Mother CVA (cerebral vascular accident) Arthritis Father Myocardial infarction, Onset Age: 40 Alcoholism Hypertension Sister Anemia Grandmother Bowel disease Osteoporosis Ovarian cancer Surgical History History of repair of hiatal hernia History of cholecystectomy History of hernia surgery Presence of coronary angioplasty implant and graft (~1989) History of hammer toe correction History of lumbar laminectomy History of carpal tunnel release History of tonsillectomy and adenoidectomy History of lumpectomy of left breast History of cardiac catheterization History of esophagogastroduodenoscopy (EGD) Hx of colonoscopy Hx of ventral hernia repair Hx of cataract extraction History of laryngoscopy History of appendectomy H/O kyphoplasty Social History household members: spouse housing: house [...] safe at home: Yes ROS ROS ED Constitutional Constitutional ED: Denies chills or fever(s) Eyes Eyes: Denies blurry vision or change in vision ENT ENT ED: Denies sore throat Cardiovascular Cardiovascular: Reports other Details: Negative syncope ; Denies chest pain, palpitations or racing heartbeat Respiratory/Chest Respiratory/Chest: Denies cough or dyspnea Gastrointestinal Gastrointestinal: Denies abdominal pain, diarrhea, nausea or vomiting Musculoskeletal Musculoskeletal: Reports other Details: Positive right shoulder pain ; Denies back pain or neck pain Integumentary Denies Abrasions Neurologic Neurologic: Denies headache(s) or paresthesias Hematologic/Lymphatic Hematologic/Lymphatic: Reports easy bleeding and easy bruising EXAM Physical Exam Const Vital Signs: 02/03/25 04:07 02/03/25 06:06 02/03/25 06:47 Temperature 97.9 F Temperature Source Oral Pulse Rate 67 70 71 Respiratory Rate 18 16 18 Blood Pressure 176/86 H 116/63 91/57 L Blood Pressure Mean 116 80 68 Pulse Ox 97 93 77 Oxygen Delivery Method Room Air Room Air Room Air Positive well nourished and well developed General Appearance ED: well developed HEENT HEENT Narrative: Normocephalic atraumatic No signs of depressed or basilar skull fracture Eyes PERRL and EOMs intact bilaterally Neck full ROM and supple Neck Narrative: No bony deformity or step-off of the cervical spine no midline tenderness to palpation Chest Wall palpation of chest normal Resp normal respiratory effort and clear to auscultation bilaterally Cardio regular rate and regular rhythm Back/Spine Back/Spine Narrative: Patient has severe thoracic kyphosis which is chronic in nature without midline tenderness to the thoracic or lumbar spine noted Extremity Extremity Narrative: Pelvis is stable and there is no shortening or external rotation of either lowerextremity Right upper extremity is neurovascularly intact; AIN/PIN are intact and normal. There is deformity of the right shoulder/distal clavicle noted. Active and passive range of motion is severely limited secondary to pain. There is no obvious joint effusion. Negative sulcus sign Remainder of the exam is normal Compartments are soft and compressible going against compartment syndrome Neuro oriented x3 and CN's II-XII intact bilaterally Sensorium / Orientation: alert Psych mental status grossly normal Skin Skin Narrative: Ecchymosis along the right shoulder consistent with recent trauma No skin puncture/open fracture noted MDM MDM MDM Narrative Medical decision making narrative: Patient arrived to the ER hypertensive but otherwise with stable vitals. She reported a mechanical fall and therefore I had low concern for cardiac or syncope workup. She is on a blood thinner but she did not strike her head and she does not have headache change in vision nausea or vomiting and there for my concern for a underlying traumatic subarachnoid or subdural hemorrhage is low I do not feel the need for head CT. With concern for fracture versus dislocation to the right shoulder and x-ray was obtained. This showed a distal clavicle fracture without obvious dislocation. In order to ensure that there is no associated missed fracture or dislocation based on her advanced age and frailty I did elect to perform a CT scan of the shoulder region. This confirmed fracture without dislocation. The case was then discussed with orthopedic surgeon Dr. Quintanilla. He agrees that as the patient is closed and neurovascularly intact there is no need for emergent intervention. He recommends treatment with simple sling and can see the patient as an outpatient to discuss further treatment options. Plan of care was discussed with patient and and they are agreeable to it and therefore should be discharged at this time History & Record Review Discussion w/independent historian: Patient and Significant other Radiography Diagnostic Testing: Clinical Impression(s) from Imaging Studies Shoulder X-Ray 02/03/25 05:10 IMPRESSION: Acute oblique displaced fracture of the most distal aspect of the right clavicle. Significant cranial displacement of the proximal aspect of the clavicle of the level of the fracture line. 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 Reading Location: [place] [id number] X-ray of the right shoulder as interpreted by the emergency medicine physician reveals a fracture to the distal aspect of the right clavicle with cranial displacement. 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 Instructions: ED Fracture, Clavicle Prescriptions: New diazepam [Valium] 2 mg tablet 2 mg PO TID PRN (Reason: Muscle pain/spasm) 5 Days Qty: 15 0RF hydromorphone [Dilaudid] 2 mg tablet 2 mg PO Q6H PRN (Reason: pain) 5 Days Qty: 20 0RF No Action Myrbetriq 50 mg tablet extended release 24 hr 50 mg PO QHS aspirin [Adult Aspirin Regimen] 81 mg tablet,delayed release (DR/EC) 81 mg PO DAILY multivitamin Tablet 1 tab PO DAILY famotidine 10 mg tablet 10 mg PO BID d-mannose 500 mg capsule 500 mg PO DAILY albuterol sulfate 2.5 mg /3 mL (0.083 %) solution for nebulization 2.5 mg inhalation Q6H PRN (Reason: Sob &/Or Wheezing) Qty: 180 6RF latanoprost [Xalatan] 0.005 % drops 1 drp ophthalmic (eye) DAILY nitroglycerin 0.4 mg tablet, sublingual 0.4 mg sublingual Q5-15M PRN (Reason: chest pain) Qty: 25 3RF Rx Instructions: do not exceed 3 doses per episode donepezil [Aricept] 5 mg tablet 10 mg PO DAILY Qty: 90 3RF azelastine 137 mcg (0.1 %) spray,non-aerosol 2 spray intranasal BID Patient Comments: [NO ORIGINAL SIG] fluticasone propionate [Allergy Relief (fluticasone)] 50 mcg/actuation spray,suspension 1 spray intranasal DAILY Rx Instructions: administer into each nostril Zyrtec 10 mg capsule 10 mg PO DAILY PRN (Reason: allergy symptoms) pantoprazole 40 mg tablet,delayed release (DR/EC) 40 mg PO DAILY potassium chloride [Klor-Con M20] 20 mEq tablet,ER particles/crystals 20 meq PO DAILY brimonidine 0.2 % drops ophthalmic (eye) QHS olopatadine 0.6 % spray,non-aerosol 2 spray intranasal DAILY Patient Comments: [NO ORIGINAL SIG] Probiotic Blend 2 billion cell-50 mg Capsule 1 cap PO DAILY gabapentin 100 mg capsule 300 mg PO QHS (DME) syringes BD ECLIPSE See Rx Instructions .Route .MEDSUPPLY Rx Instructions: Bd SYR/leticia Eclipse 3ml #5769 BD Sry/needle eclips See Rx Instructions IM .COMPLEX Qty: 12 0RF Rx Instructions: intramuscularly; 3ml #9845 uses 1 a month (DME) PEP device See Rx Instructions .ROUTE .MEDSUPPLY Qty: 1 0RF Rx Instructions: with training atorvastatin 40 mg tablet See Rx Instructions .ROUTE .COMPLEX Qty: 90 3RF Dose Instruction: TAKE 1 TABLET DAILY Rx Instructions: TAKE 1 TABLET DAILY Eliquis 5 mg tablet 5 mg PO BID Qty: 180 3RF levothyroxine 50 mcg tablet 50 mcg PO DAILY Qty: 90 3RF memantine 10 mg tablet 10 mg PO BID Qty: 180 3RF pramipexole 0.5 mg tablet 0.5 mg PO BID Qty: 180 3RF Trintellix 20 mg tablet 20 mg PO DAILY Qty: 90 3RF furosemide 20 mg tablet 10 mg PO DAILY PRN (Reason: edema) Qty: 30 0RF lacosamide [Vimpat] 100 mg tablet 100 mg PO BID Qty: 180 3RF cyanocobalamin (vitamin B-12) 1,000 mcg/mL solution 1,000 mcg IM QMONTH Qty: 10 0RF Rx Instructions: Can be administered at [facility] [place] Prolia 60 mg/mL syringe 60 mg subcut [id number] Qty: 1 5RF Primary Care Provider: Chema Perry Referrals: Chema Perry MD [Primary Care Provider] - Jean Claude Quintanilla DO [Med Staff - Active Staff] - (Clavicle fracture) Activity Restrictions/Additional Instructions: Wear sling for stabilization of your fractured clavicle. Follow-up with Dr. Quintanilla for repeat evaluation early next week and to discuss further treatment options. Return to the ER should you have any further concerns Print Language: Malay Disposition Disposition: Home, Self Care What to do if you have Problems For any increased pain, shortness of breath, bleeding, nausea or vomiting, chestpain, or any unexpected problems, contact your Primary Care Provider. Call [facility] ([phone]) or report to the closest Emergency Room. Call 911 if necessary. 02/03/25 0758 <Electronically signed by Isma Bustamante DO> Cosigner Signature (if applicable): CC: Dr. Chema Perry MD ~ Signed [facility] Work Phone: Evaluation note* Diagnosis Dementia without behavioral disturbance, unspecified dementia type (HCC)- Primary History of complex partial epilepsy Personal history of other disorders of nervous system and sense organs Gait instability Abnormality of gait Multiple falls Personal history of fall Depression, unspecified depression type Anxiety Anxiety state, unspecified Physical deconditioning Debility, unspecified [facility] Onset Date Resolution Status [...] ERIS (obstructive sleep apnea) chronic COVID-19 resolved [facility] Work Phone: Evaluation note* Diagnosis Dementia without behavioral disturbance, unspecified dementia type (HCC)- Primary History of complex partial epilepsy Personal history of other disorders of nervous system and sense organs Gait instability Abnormality of gait Multiple falls Personal history of fall Depression, unspecified depression type Anxiety Anxiety state, unspecified Physical deconditioning Debility, unspecified [facility] Diagnosis Onset Date Resolution Status Bronchiectasis acute Hiatal hernia acute ERIS (obstructive sleep apnea) chronic COVID-19 resolved Bronchiectasis acute Shortness of breath on exertion acute COVID-19 resolved [facility] Work Phone: Evaluation note* Diagnosis Onset Date Resolution Status Bronchiectasis acute Shortness of breath on exertion acute COVID-19 resolved [facility] Work Phone: Evaluation note* Diagnosis Dementia without behavioral disturbance, unspecified dementia type ([facility])- Primary History of complex partial epilepsy Personal history of other disorders of nervous system and sense organs Gait instability Abnormality of gait Multiple falls Personal history of fall Physical deconditioning Debility, unspecified Cognitive communication deficit [facility] Diagnosis Onset Date Resolution Status Debility acute Falls frequently acute Hyperlipidemia acute Hypothyroidism acute Overactive bladder acute Gastroesophageal reflux disease chronic ERIS (obstructive sleep apnea) chronic Seizure disorder chronic Encounter to establish care noneactive Bronchiectasis acute Hypoxemia acute ERIS (obstructive sleep apnea) chronic Intermittent constipation ac bill moore[place]ough Leg edema, left acute Varicose veins of both legs with edema acute Debility acute Lightheadedness acute Overactive bladder acute Atherosclerotic heart diseas e of [place] coronary artery without angina pectoris acute Essential hypertension acute Presence of stent in coronary artery acute Hyperlipidemia chronic Bronchiectasis acute Hypoxemia acute Abdominal wall hernia acute Essential hypertension acute Restless leg syndrome chroni c Seizure disorder chronic Acute bronchitis acute [facility] Work Phone: Evaluation note* Diagnosis Onset Date Resolution Status Bronchiectasis acute Hypoxemia acute ERIS (obstructive sleep apnea) chronic Intermittent constipation ac [place] Leg edema, left acute Varicose veins of both legs with edema acute Debility acute Lightheadedness acute Overactive bladder acute Atherosclerotic heart diseas e of [place] coronary artery without angina pectoris acute Essential hypertension acute Presence of stent in coronary artery acute Hyperlipidemia chronic Bronchiectasis acute Hypoxemia acute Abdominal wall hernia acute Essential hypertension acute Restless leg syndrome chroni c Seizure disorder chronic Acute bronchitis acute [facility] Work Phone: Evaluation note* Diagnosis Onset Date Resolution Status Intermittent constipation ac [place] Leg edema, left acute Varicose veins of both legs with edema acute Debility acute Lightheadedness acute Overactive bladder acute Atherosclerotic heart diseas e of [place] coronary artery without angina pectoris acute Essential hypertension acute Presence of stent in coronary artery acute Hyperlipidemia chronic Bronchiectasis acute Hypoxemia acute Abdominal wall hernia acute Essential hypertension acute Restless leg syndrome chroni c Seizure disorder chronic Acute bronchitis acute Right inguinal hernia acute Fall (on)(from) incline, subsequent encounter acute Visit for suture removal acu [facility] Work Phone: Evaluation note* Diagnosis Onset Date Resolution Status Atherosclerotic heart diseas e of [place] coronary artery without angina pectoris acute Essential hypertension acute Presence of stent in coronary artery acute Hyperlipidemia chronic Bronchiectasis acute Hypoxemia acute Abdominal wall hernia acute Essential hypertension acute Restless leg syndrome chroni c Seizure disorder chronic Acute bronchitis acute Right inguinal hernia acute Fall (on)(from) incline, subsequent encounter acute Visit for suture removal acu [facility] Work Phone: Evaluation note* Diagnosis Onset Date Resolution Status Atherosclerotic heart diseas e of [place] coronary artery without angina pectoris acute Essential [...] Left elbow contusion acute Scalp contusion acute [facility] Work Phone: Evaluation note* Diagnosis Onset [...] Left elbow contusion acute Scalp contusion acute [facility] Work Phone: Evaluation note* Diagnosis Dementia [...] Abnormality of gait [facility] Diagnosis Onset Date Resolution Status Contusion of left shoulder a cute Contusion of left wrist acut e Left elbow contusion acute Scalp contusion acute Atherosclerotic heart diseas e of [place] coronary artery without angina pectoris acute Debility acute Essential hypertension acute Falls frequently acute Hyperlipidemia acute Hypothyroidism acute Lightheadedness acute Overactive bladder acute Seizure disorder acute Vascular dementia acute Vitamin B 12 deficiency acut e Vitamin D deficiency resolve d Contact with and (suspected) exposure to other viral communicable diseases acute [facility] Work Phone: Evaluation note* Diagnosis Onset Date Resolution Status Contusion of left shoulder a cute Contusion of left wrist acut e Left elbow contusion acute Scalp contusion acute Atherosclerotic heart diseas e of [place] coronary artery without angina pectoris acute Debility [...] chroni c Atherosclerotic heart diseas e of [place] coronary artery without angina pectoris acute Essential hypertension acute Lightheadedness acute Hyperlipidemia chronic Mass of upper inner quadrant of left breast acute [facility] Work Phone: Evaluation note* Diagnosis Onset Date Resolution Status Atherosclerotic heart diseas e of [place] coronary artery without angina pectoris acute Debility [...] chroni c Atherosclerotic heart diseas e of [place] coronary artery without angina pectoris acute Essential hypertension acute Lightheadedness acute Hyperlipidemia chronic Mass of upper inner quadrant of left breast acute Contusion of thoracic wall a cute Lumbar contusion acute Atherosclerotic heart diseas e of [place] coronary artery without angina pectoris acute Cancer acute Essential hypertension acute Hyperlipidemia acute Hypothyroidism acute Mass of upper inner quadrant of left breast acute Presence of stent in coronary artery acute Right inguinal hernia acute Vitamin B 12 deficiency acut e Gastroesophageal reflux disease chronic ERIS (obstructive sleep apnea) chronic Restless leg syndrome chroni c [facility] Work Phone: Evaluation note* Diagnosis 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, psychotic disturbance, mood disturbance, or anxiety (HCC) [facility] Diagnosis Onset Date Resolution Status Atherosclerotic heart diseas e of [place] coronary artery without angina pectoris acute Essential hypertension acute Lightheadedness acute Hyperlipidemia chronic Mass of upper inner quadrant of left breast acute Contusion of thoracic wall a cute Lumbar contusion acute Atherosclerotic heart diseas e of [place] coronary artery without angina pectoris acute Cancer [...] Bee sting acute Bronchiectasis acute Hypoxemia chronic [facility] Work Phone: Evaluation note* Diagnosis Onset Date Resolution Status Sternal deformity acute Bee sting acute Bronchiectasis acute Hypoxemia chronic Atherosclerotic heart diseas e of [place] coronary artery without angina pectoris acute ALEXANDER (dyspnea on exertion) ac [place] slough Hyperlipidemia [facility] Work Phone: Evaluation note* Diagnosis Mild [...] influencing health status [facility] Diagnosis Onset Date Resolution Status Bee sting acute Bronchiectasis acute Hypoxemia chronic Atherosclerotic heart diseas e of [place] coronary artery without angina pectoris acute ALEXANDER (dyspnea on exertion) ac [place] Hyperlipidemia chronic [facility] Work Phone: Evaluation note* Diagnosis 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, psychotic disturbance, mood disturbance, or anxiety (HCC)- Primary History of complex partial epilepsy Personal history of other disorders of nervous system and sense organs Physical deconditioning Debility, unspecified Gait instability Abnormality of gait Fine motor impairment Other specified conditions influencing health status [facility]* Diagnosis Onset Date Resolution Status Atherosclerotic heart diseas e of [place] coronary artery without angina pectoris acute Debility acute Essential hypertension acute Falls frequently acute Hiatal hernia acute Hyperlipidemia acute Restless leg syndrome acute Right inguinal hernia acute Vascular dementia acute Difficulty swallowing chroni c Hiatal hernia acute Mass of upper inner quadrant of left breast acute Sternal deformity acute Osteoporosis chronic Bronchiectasis acute Hypoxemia [facility] Work Phone: Evaluation note* Diagnosis Primary open angle glaucoma (POAG) of both eyes, severe stage- Primary [facility]* Diagnosis Onset Date Resolution Status Atherosclerotic heart diseas e of [place] coronary artery without angina pectoris acute Debility acute Essential hypertension acute Falls frequently acute Hiatal hernia acute Hyperlipidemia acute Restless leg syndrome acute Right inguinal hernia acute Vascular dementia acute Difficulty swallowing chroni c Hiatal hernia acute Mass of upper inner quadrant of left breast acute Sternal deformity acute Osteoporosis chronic Bronchiectasis acute Hypoxemia chronic Atherosclerotic heart diseas e of [place] coronary artery without angina pectoris acute Dizziness acute Hyperlipidemia [facility] Work Phone: Evaluation note* Diagnosis Onset Date Resolution Status Hiatal hernia acute Mass of upper inner quadrant of left breast acute Sternal deformity acute Osteoporosis chronic Bronchiectasis acute Hypoxemia chronic Atherosclerotic heart diseas e of [place] coronary artery without angina pectoris acute Dizziness acute Hyperlipidemia [facility] Work Phone: Evaluation note* Diagnosis 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, psychotic disturbance, mood disturbance, or anxiety (HCC) [facility] Diagnosis 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, psychotic disturbance, mood disturbance, or anxiety (HCC) documented [facility]* Diagnosis 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, psychotic disturbance, mood disturbance, or anxiety (HCC)- Primary Physical deconditioning Debility, unspecified Gait instability Abnormality of gait Fine motor impairment Other specified conditions influencing health status Dizziness Dizziness and giddiness Depression, unspecified depression type 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) (postural) [facility] Diagnosis Primary open angle glaucoma (POAG) of both eyes, severe stage [facility] Diagnosis 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) Dementia, unspecified, without behavioral disturbance [facility] Diagnosis Hiatal hernia- Primary Diaphragmatic hernia without mention of obstruction or gangrene Gastroesophageal reflux disease, unspecified whether esophagitis present [facility] Diagnosis H/O acute myocardial infarction- Primary Old myocardial infarction Cardiomyopathy, unspecified type (HCC) Pre-op evaluation Preoperative examination, unspecified Encounter to establish care Other reasons for seeking consultation [facility] Diagnosis Hiatal hernia- Primary Diaphragmatic hernia without mention of obstruction or gangrene [facility] Diagnosis Hiatal hernia Diaphragmatic hernia without mention of obstruction or gangrene documented in this encounter [facility] note* Diagnosis 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, psychotic disturbance, mood disturbance, or anxiety (HCC)- Primary Physical deconditioning Debility, unspecified Gait instability Abnormality of gait Fine motor impairment Other specified conditions influencing health status Dizziness Dizziness and giddiness Idiopathic scoliosis and kyphoscoliosis Scoliosis (and kyphoscoliosis), idiopathic Multiple falls Personal history of fall Paresthesia of both feet [facility] Diagnosis Pre-operative examination- Primary Preoperative examination, unspecified 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) Dementia, unspecified, without behavioral disturbance MS (multiple sclerosis) (HCC) Multiple sclerosis History of complex partial epilepsy Personal history of other disorders of nervous system and sense organs Restless legs syndrome Restless legs syndrome (RLS) Atherosclerosis of [place] coronary artery of [place] heart with angina pectoris (HCC) Essential hypertension [...] unspecified whether acute cor pulmonale present (HCC) * Assessment & Plan Note - Willa Torres APRN.CNP - 07/20/2024 1:07 PM EST Associated Problem(s): Pulmonary embolism (HCC) Assessment: hx 01/2021, daily eliquis, instructed to hold 2 days prior to upcoming procedure, pt verbalized understanding. * Assessment & Plan Note - Willa Torers APRN.CNP - 07/20/2024 1:04 PM EST Associated [...] following [facility], last OV 11/12/2023 [facility]. Stress test 05/2023 negative for ischemia. 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 CSF AD biomarkers negative documented in this encounter [facility] note* Diagnosis Pre-operative examination- Primary Preoperative examination, unspecified 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) Dementia, unspecified, without behavioral disturbance MS (multiple sclerosis) (HCC) Multiple sclerosis History of complex partial epilepsy Personal history of other disorders of nervous system and sense organs Restless legs syndrome Restless legs syndrome (RLS) Atherosclerosis of [place] coronary artery of [place] heart with angina pectoris (HCC) Essential hypertension [...] obstruction or gangrene documented in this encounter [facility] note* Diagnosis Pre-operative examination- Primary Preoperative examination, unspecified 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) Dementia, unspecified, without behavioral disturbance MS (multiple sclerosis) (HCC) Multiple sclerosis History of complex partial epilepsy Personal history of other disorders of nervous system and sense organs Restless legs syndrome Restless legs syndrome (RLS) Atherosclerosis of [place] coronary artery of [place] heart with angina pectoris (HCC) Essential hypertension [...] eyes, severe stage documented in this encounter [facility]* Diagnosis Pre-operative examination- Primary Preoperative examination, unspecified 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) Dementia, unspecified, without behavioral disturbance MS (multiple sclerosis) (HCC) Multiple sclerosis History of complex partial epilepsy Personal history of other disorders of nervous system and sense organs Restless legs syndrome Restless legs syndrome (RLS) Atherosclerosis of [place] coronary artery of [place] heart with angina pectoris (HCC) Essential hypertension [...] unspecified type (HCC) documented in this encounter [facility] note* Diagnosis Pre-operative examination- Primary Preoperative examination, unspecified 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) Dementia, unspecified, without behavioral disturbance MS (multiple sclerosis) (HCC) Multiple sclerosis History of complex partial epilepsy Personal history of other disorders of nervous system and sense organs Restless legs syndrome Restless legs syndrome (RLS) Atherosclerosis of [place] coronary artery of [place] heart with angina pectoris (HCC) Essential hypertension [...] chronicity, unspecified whether acute cor pulmonale present ([facility]) Neuropathy- Primary Mononeuritis of unspecified site Paresthesia of both feet Frequent falls Personal history of fall documented in this encounter [facility] note* Diagnosis Pre-operative examination- Primary Preoperative examination, unspecified 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) Dementia, unspecified, without behavioral disturbance MS (multiple sclerosis) (HCC) Multiple sclerosis History of complex partial epilepsy Personal history of other disorders of nervous system and sense organs Restless legs syndrome Restless legs syndrome (RLS) Atherosclerosis of [place] coronary artery of [place] heart with angina pectoris (HCC) Essential hypertension [...] Preoperative examination, unspecified documented in this encounter [facility] note* Diagnosis Pre-operative examination- Primary Preoperative examination, unspecified 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) Dementia, unspecified, without behavioral disturbance MS (multiple sclerosis) (HCC) Multiple sclerosis History of complex partial epilepsy Personal history of other disorders of nervous system and sense organs Restless legs syndrome Restless legs syndrome (RLS) Atherosclerosis of [place] coronary artery of [place] heart with angina pectoris (HCC) Essential hypertension [...] Preoperative examination, unspecified documented in this encounter [facility] note* Diagnosis Pre-operative examination- Primary Preoperative examination, unspecified 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) Dementia, unspecified, without behavioral disturbance MS (multiple sclerosis) (HCC) Multiple sclerosis History of complex partial epilepsy Personal history of other disorders of nervous system and sense organs Restless legs syndrome Restless legs syndrome (RLS) Atherosclerosis of [place] coronary artery of [place] heart with angina pectoris (HCC) Essential hypertension [...] Preoperative examination, unspecified [facility] Diagnosis Pre-operative examination- Primary Preoperative examination, unspecified 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) Dementia, unspecified, without behavioral disturbance MS (multiple sclerosis) (HCC) Multiple sclerosis History of complex partial epilepsy Personal history of other disorders of nervous system and sense organs Restless legs syndrome Restless legs syndrome (RLS) Atherosclerosis of [place] coronary artery of [place] heart with angina pectoris (HCC) Essential hypertension [...] Preoperative examination, unspecified documented in this encounter [facility] note* Diagnosis Pre-operative examination- Primary Preoperative examination, unspecified 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) Dementia, unspecified, without behavioral disturbance MS (multiple sclerosis) (HCC) Multiple sclerosis History of complex partial epilepsy Personal history of other disorders of nervous system and sense organs Restless legs syndrome Restless legs syndrome (RLS) Atherosclerosis of [place] coronary artery of [place] heart with angina pectoris (HCC) Essential hypertension [...] Preoperative examination, unspecified documented in this encounter [facility]* Diagnosis Pre-operative examination- Primary Preoperative examination, unspecified 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) Dementia, unspecified, without behavioral disturbance MS (multiple sclerosis) (HCC) Multiple sclerosis History of complex partial epilepsy Personal history of other disorders of nervous system and sense organs Restless legs syndrome Restless legs syndrome (RLS) Atherosclerosis of [place] coronary artery of [place] heart with angina pectoris (HCC) Essential hypertension [...] Preoperative examination, unspecified [facility] Diagnosis Pre-operative examination- Primary Preoperative examination, unspecified 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) Dementia, unspecified, without behavioral disturbance MS (multiple sclerosis) (HCC) Multiple sclerosis History of complex partial epilepsy Personal history of other disorders of nervous system and sense organs Restless legs syndrome Restless legs syndrome (RLS) Atherosclerosis of [place] coronary artery of [place] heart with angina pectoris (HCC) Essential hypertension [...] Preoperative examination, unspecified documented in this encounter [facility]* Diagnosis Pre-operative examination- Primary Preoperative examination, unspecified 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) Dementia, unspecified, without behavioral disturbance MS (multiple sclerosis) (HCC) Multiple sclerosis History of complex partial epilepsy Personal history of other disorders of nervous system and sense organs Restless legs syndrome Restless legs syndrome (RLS) Atherosclerosis of [place] coronary artery of [place] heart with angina pectoris ([facility]) Essential hypertension Unspecified essential hypertension Mixed hyperlipidemia [...] * Assessment & Plan Note - Brenda Morealnd APRN.CNP - 09/14/2024 8:40 PM EST Associated [...] per Dr. Marcial. [facility] Diagnosis Pre-operative examination- Primary Preoperative examination, unspecified 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) Dementia, unspecified, without behavioral disturbance MS (multiple sclerosis) (HCC) Multiple sclerosis History of complex partial epilepsy Personal history of other disorders of nervous system and sense organs Restless legs syndrome Restless legs syndrome (RLS) Atherosclerosis of [place] coronary artery of [place] heart with angina pectoris (HCC) Essential hypertension [...] chronic pain- Primary documented in this encounter [facility]* Diagnosis Pre-operative examination- Primary Preoperative examination, unspecified 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) Dementia, unspecified, without behavioral disturbance MS (multiple sclerosis) (HCC) Multiple sclerosis History of complex partial epilepsy Personal history of other disorders of nervous system and sense organs Restless legs syndrome Restless legs syndrome (RLS) Atherosclerosis of [place] coronary artery of [place] heart with angina pectoris (HCC) Essential hypertension [...] other specified site documented in this encounter [facility]* Diagnosis Pre-operative examination- Primary Preoperative examination, unspecified 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) Dementia, unspecified, without behavioral disturbance MS (multiple sclerosis) (HCC) Multiple sclerosis History of complex partial epilepsy Personal history of other disorders of nervous system and sense organs Restless legs syndrome Restless legs syndrome (RLS) Atherosclerosis of [place] coronary artery of [place] heart with angina pectoris (HCC) Essential hypertension [...] of both feet [facility] Diagnosis Pre-operative examination- Primary Preoperative examination, unspecified 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) Dementia, unspecified, without behavioral disturbance MS (multiple sclerosis) (HCC) Multiple sclerosis History of complex partial epilepsy Personal history of other disorders of nervous system and sense organs Restless legs syndrome Restless legs syndrome (RLS) Atherosclerosis of [place] coronary artery of [place] heart with angina pectoris (HCC) Essential hypertension [...] malaise and fatigue [facility] Diagnosis Pre-operative examination- Primary Preoperative examination, unspecified 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) Dementia, unspecified, without behavioral disturbance MS (multiple sclerosis) (HCC) Multiple sclerosis History of complex partial epilepsy Personal history of other disorders of nervous system and sense organs Restless legs syndrome Restless legs syndrome (RLS) Atherosclerosis of [place] coronary artery of [place] heart with angina pectoris (HCC) Essential hypertension [...] Other postprocedural status [facility] Diagnosis Pre-operative examination- Primary Preoperative examination, unspecified 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) Dementia, unspecified, without behavioral disturbance MS (multiple sclerosis) (HCC) Multiple sclerosis History of complex partial epilepsy Personal history of other disorders of nervous system and sense organs Restless legs syndrome Restless legs syndrome (RLS) Atherosclerosis of [place] coronary artery of [place] heart with angina pectoris (HCC) Essential hypertension [...] eyes, severe stage [facility] Diagnosis Pre-operative examination- Primary Preoperative examination, unspecified 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) Dementia, unspecified, without behavioral disturbance MS (multiple sclerosis) (HCC) Multiple sclerosis History of complex partial epilepsy Personal history of other disorders of nervous system and sense organs Restless legs syndrome Restless legs syndrome (RLS) Atherosclerosis of [place] coronary artery of [place] heart with angina pectoris (HCC) Essential hypertension [...] Abdominal pain, generalized [facility] Diagnosis Pre-operative examination- Primary Preoperative examination, unspecified 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) Dementia, unspecified, without behavioral disturbance MS (multiple sclerosis) (HCC) Multiple sclerosis History of complex partial epilepsy Personal history of other disorders of nervous system and sense organs Restless legs syndrome Restless legs syndrome (RLS) Atherosclerosis of [place] coronary artery of [place] heart with angina pectoris (HCC) Essential hypertension [...] of ulnar nerve [facility] Diagnosis Pre-operative examination- Primary Preoperative examination, unspecified 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) Dementia, unspecified, without behavioral disturbance MS (multiple sclerosis) (HCC) Multiple sclerosis History of complex partial epilepsy Personal history of other disorders of nervous system and sense organs Restless legs syndrome Restless legs syndrome (RLS) Atherosclerosis of [place] coronary artery of [place] heart with angina pectoris (HCC) Essential hypertension [...] malaise and fatigue [facility] Diagnosis Pre-operative examination- Primary Preoperative examination, unspecified 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) Dementia, unspecified, without behavioral disturbance MS (multiple sclerosis) (HCC) Multiple sclerosis History of complex partial epilepsy Personal history of other disorders of nervous system and sense organs Restless legs syndrome Restless legs syndrome (RLS) Atherosclerosis of [place] coronary artery of [place] heart with angina pectoris Essential hypertension Unspecified [...] Nausea Nausea alone [facility] Diagnosis Pre-operative examination- Primary Preoperative examination, unspecified 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) Dementia, unspecified, without behavioral disturbance MS (multiple sclerosis) (HCC) Multiple sclerosis History of complex partial epilepsy Personal history of other disorders of nervous system and sense organs Restless legs syndrome Restless legs syndrome (RLS) Atherosclerosis of [place] coronary artery of [place] heart with angina pectoris Essential hypertension Unspecified [...] malaise and fatigue [facility] Diagnosis Pre-operative examination- Primary Preoperative examination, unspecified 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) Dementia, unspecified, without behavioral disturbance MS (multiple sclerosis) (HCC) Multiple sclerosis History of complex partial epilepsy Personal history of other disorders of nervous system and sense organs Restless legs syndrome Restless legs syndrome (RLS) Atherosclerosis of [place] coronary artery of [place] heart with angina pectoris Essential hypertension Unspecified [...] Diarrhea, unspecified type [facility] Diagnosis Pre-operative examination- Primary Preoperative examination, unspecified 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) Dementia, unspecified, without behavioral disturbance MS (multiple sclerosis) (HCC) Multiple sclerosis History of complex partial epilepsy Personal history of other disorders of nervous system and sense organs Restless legs syndrome Restless legs syndrome (RLS) Atherosclerosis of [place] coronary artery of [place] heart with angina pectoris Essential hypertension Unspecified [...] of biliary tract [facility] Pre-operative examination- Primary Preoperative examination, unspecified 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) Dementia, unspecified, without behavioral disturbance MS (multiple sclerosis) (HCC) Multiple sclerosis History of complex partial epilepsy Personal history of other disorders of nervous system and sense organs Restless legs syndrome Restless legs syndrome (RLS) Atherosclerosis of [place] coronary artery of [place] heart with angina pectoris Essential hypertension Unspecified [...] Lack of coordination [facility] Diagnosis Pre-operative examination- Primary Preoperative examination, unspecified 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) Dementia, unspecified, without behavioral disturbance MS (multiple sclerosis) (HCC) Multiple sclerosis History of complex partial epilepsy Personal history of other disorders of nervous system and sense organs Restless legs syndrome Restless legs syndrome (RLS) Atherosclerosis of [place] coronary artery of [place] heart with angina pectoris Essential hypertension Unspecified [...] daily living (ADL) [facility] Diagnosis Pre-operative examination- Primary Preoperative examination, unspecified 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) Dementia, unspecified, without behavioral disturbance MS (multiple sclerosis) (HCC) Multiple sclerosis History of complex partial epilepsy Personal history of other disorders of nervous system and sense organs Restless legs syndrome Restless legs syndrome (RLS) Atherosclerosis of [place] coronary artery of [place] heart with angina pectoris Essential hypertension Unspecified [...] obstruction or gangrene [facility] Diagnosis Pre-operative examination- Primary Preoperative examination, unspecified 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) Dementia, unspecified, without behavioral disturbance MS (multiple sclerosis) (HCC) Multiple sclerosis History of complex partial epilepsy Personal history of other disorders of nervous system and sense organs Restless legs syndrome Restless legs syndrome (RLS) Atherosclerosis of [place] coronary artery of [place] heart with angina pectoris Essential hypertension Unspecified [...] initial encounter- Primary documented [facility]* Diagnosis Pre-operative examination- Primary Preoperative examination, unspecified 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) Dementia, unspecified, without behavioral disturbance MS (multiple sclerosis) (HCC) Multiple sclerosis History of complex partial epilepsy Personal history of other disorders of nervous system and sense organs Restless legs syndrome Restless legs syndrome (RLS) Atherosclerosis of [place] coronary artery of [place] heart with angina pectoris Essential hypertension Unspecified [...] Abnormality of gait [facility] Diagnosis Pre-operative examination- Primary Preoperative examination, unspecified 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) Dementia, unspecified, without behavioral disturbance MS (multiple sclerosis) (HCC) Multiple sclerosis History of complex partial epilepsy Personal history of other disorders of nervous system and sense organs Restless legs syndrome Restless legs syndrome (RLS) Atherosclerosis of [place] coronary artery of [place] heart with angina pectoris Essential hypertension Unspecified [...] legs syndrome (RLS) [facility] Additional Instructions 5 sutures were placed in your scalp to stop the bleeding from the laceration. The sutures will need to be removed in 10 to 14 days. Please see your family doctor or return to the ER for suture removal. Please return for repeat evaluation if he have any further concerns [facility] Work Phone: Hospital Discharge instructions Additional Instructions Wear sling for stabilization of your fractured clavicle. Follow-up with Dr. Quintanilla for repeat evaluation early next week and to discuss further treatment options. [facility] Reason for referral (narrative)* Outpatient Procedure (Routine) - New Request Specialty Diagnoses / Procedures Referred By Vivienne hunt Referred To [facility] Diagnoses H/O acute myocardial infarction Cardiomyopathy, unspecified type (HCC) Pre-op evaluation Procedures ECHO ECHO TTHRC R-T 2D W/WOM-MODE COMPL SPEC&COLR D Anila De Paz MD [address] [place] [address] [facility] [employer] [address] [place] [address] Referral ID Status Reason Start Date Expiration Date Visits Requested Visits Authorized [id number] New Request Auto-Generat ed Referral 06/18/2024 06/18/2025 1 1 * Consult, Test, Treat (Routine) - Authorized Specialty Diagnoses / Procedures Referred By Vivienne hunt Referred To Contact Cardiology Diagnoses H/O acute myocardial infarction Cardiomyopathy, unspecified type (HCC) Pre-op evaluation Procedures CONSULT TO CARDIOLOGY OFFICE/OUTPATIENT [facility] 60 MINUTES Anila De Paz MD [address] [place] [address] Referral ID Status Reason Start Date Expiration Date Visits Requested Visits Authorized [id number] Authorized PCP Requested Referral 06/18/2024 06/18/2025 1 1 * Consult, Test, Treat (Routine) - Authorized Specialty Diagnoses / Procedures Referred By Vivienne hunt Referred To Contact Internal Medicine Diagnoses Pre-op evaluation Encounter to establish care Procedures CONSULT TO INTERNAL MEDICINE OFFICE/OUTPATIENT [facility] 60 MINUTES Anila De Paz MD [address] [place] [address] Referral ID Status Reason Start Date Expiration Date Visits Requested Visits Authorized [id number] Authorized PCP Requested Referral 06/18/2024 06/18/2025 1 1 [facility] for referral (narrative)* Outpatient Procedure (Routine) - Closed Specialty Diagnoses / Procedures Referred By Vivienne hunt Referred To Contact [facility] Diagnoses Hiatal hernia Procedures EGD DIAGNOSTIC ESOPHAGOGASTRODUODENOSC OPY TRANSORAL DIAGNOSTIC Anila De Paz MD [address] [place] [id number] [facility] [employer] [address] [place], [place] [id number] Referral ID Status Reason Start Date Expiration Date V isits Requested Visits Authorized [id number] Closed Auto-Generate d Referral 06/18/2024 06/18/2025 1 1 [facility] (narrative[facility] Outpatient Procedure (Routine) - Authorized Specialty Diagnoses / Procedures Referred By Contac t Referred To Contact [facility] [place] Diagnoses Carotid bruit, unspecified laterality Procedures US CAROTID ARTERIES [facility] DUPLEX SCAN EXTRACRANIAL [place] [address] [place] [address] [facility] [place] [phone] Referral ID Status Reason Start Date Expiration Date Visits Requested Visits Authorized [id number] Authorized Auto-Generat ed Referral 4 08/03/2025 1 1 * Outpatient Procedure (Routine) - New Request Specialty Diagnoses / Procedures Referred By Contac t Referred To Contact [facility] [place] Diagnoses H/O acute myocardial infarction Procedures ECG COMPLETE ECG ROUTINE ECG W/LEAST 12 LDS W/I&[place] [address] [place] [address] [facility] [place] [phone] Referral ID Status Reason Start Date Expiration Date Visits Requested Visits Authorized [id number] New Request Auto-Generat ed Referral 4 08/03/2025 1 1 [facility] (narrative)* Outpatient Procedure (Routine) - New Request Specialty Diagnoses / Procedures Referred By Contac t Referred To Contact [facility] Diagnoses Neuropathy Procedures EMG(NEURO/NI) NERVE CONDUCTION STUDIES 9-10 STUDIES Denice Jacobs PA-C [address] [place] [address] [place] [address] Referral ID Status Reason Start Date Expiration Date Visits Requested Visits Authorized [id number] New Request Auto-Generat ed Referral 08/06/2025 1 1 [facility] for referral (narrative)* Outpatient Procedure (Routine) - New Request Specialty Diagnoses / Procedures Referred By Vivienne hunt Referred To Contact [facility] [place] Diagnoses Dilated pancreatic duct Procedures EGD - THERAPEUTIC, EUS, OR TUBE INTERVENTIONS EDG US EXAM SURGICAL ALTER STOM DUODENUM/JEJUNUM Susan Srinivasan MD [address] [facility]. [address] [place] [address] [place] [address] Referral ID Status Reason Start Date Expiration Date Visits Requested Visits Authorized [id number] New Request Auto-Generat ed Referral 09/08/2024 09/08/2025 1 1 [facility] for referral (narrative)* Outpatient Procedure (Routine) - Closed Specialty Diagnoses / Procedures Referred By Vivienne hunt Referred To Contact [facility] [place] Diagnoses Choledocholithiasis Procedures ERCP ERCP REMOVE CALCULI/DEBRIS BILIARY/PANCREAS DUCT Alisa Haile MD [address] [phone] [place] [address] Referral ID Status Reason Start Date Expiration Date V isits Requested Visits Authorized [id number] Closed Auto-Generate d Referral 09/13/2024 09/13/2025 1 1 [facility] for referral (narrative)* Outpatient Procedure (Routine) - Closed Specialty Diagnoses / Procedures [facility] Referred To Contact [facility] [place] Diagnoses Choledocholithiasis Procedures ERCP ERCP REMOVE CALCULI/DEBRIS BILIARY/PANCREAS DUCT Alisa Haile MD [address] [phone] [place] [phone] Referral ID Status Reason Start Date Expiration Date V isits Requested Visits Authorized [id number] Closed Auto-Generate d Referral 09/13/2024 09/13/2025 1 1 * Outpatient Procedure (Routine) - Closed Specialty Diagnoses / Procedures [facility] Ref[facility] Diagnoses Dilated pancreatic duct Procedures EGD - THERAPEUTIC, EUS, OR TUBE INTERVENTIONS EDG US EXAM SURGICAL ALTER STOM DUODENUM/JEJUNUM Susan Sriniavsan MD [address] [facility]. [address] [place] [phone] [place] [phone] Referral ID Status Reason Start Date Expiration Date V isits Requested Visits Authorized [id number] Closed Auto-Generate d Referral 09/08/2024 09/08/2025 1 1 [facility]ative)No reason for [facility] Narrative* Outpatient Procedure (Routine) - Closed Specialty Diagnoses / Procedures Referred By [facility] Referred To Contact [facility] [place] Diagnoses Hiatal hernia Procedures EGD DIAGNOSTIC ESOPHAGOGASTRODUODENOSC OPY TRANSORAL DIAGNOSTIC Anila De Paz MD [address] [place] [address] [place] [phone] Referral ID Status Reason Start Date Expiration Date V isits Requested Visits Authorized [id number] Closed Auto-Generate d Referral 06/18/2024 06/18/2025 1 1 [facility] for visit Narrative* Outpatient Procedure (Routine) - Closed Specialty Diagnoses / Procedures Referred By Vivienne hunt Referred To Contact [facility] Diagnoses Dilated pancreatic duct Procedures EGD - THERAPEUTIC, EUS, OR TUBE INTERVENTIONS EDG US EXAM SURGICAL ALTER STOM DUODENUM/JEJUNUM Susan Srinivasan MD [address] [place] [address] [facility] [employer] [address] [place] [address] Referral ID Status Reason Start Date Expiration Date V isits Requested Visits Authorized [id number] Closed Auto-Generate d Referral 09/08/2024 09/08/2025 1 1 [facility] Narrative* MRI/CT (Routine) - Closed Specialty Diagnoses / Procedures Referred By Vivienne hunt Referred To Contact CT IMAGING Diagnoses Nausea Procedures CT ABD/PEL W IVCON CT ABD & PELVIS W/CONTRAST Anila De Paz MD [address] [place] [address] Phone: tel: fax: CT IMAGING [place] [address] Referral ID Status Reason Start Date Expiration Date V isits Requested Visits Authorized [id number] Closed Auto-Generate d Referral 11/02/2024 12/02/2025 1 1 [facility] Chief Complaint and Reason for Visit [...] Lightheadedness Overactive bladder Atherosclerotic heart disease of [place] coronary artery without angina pectoris Essential hypertension [...] Lightheadedness Overactive bladder Atherosclerotic heart disease of [place] coronary artery without angina pectoris Essential hypertension Presence of stent in coronary artery Hyperlipidemia Bronchiectasis Hypoxemia Abdominal wall hernia Essential hypertension Restless leg syndrome Seizure disorder Acute bronchitis Chief Complaint Adema in both legs, close to ankles 2 W FU SOB/SELF REF. 3 M FU 3 M FU NON-PRODUCTIVE COUGH Amb Documentation ABD WALL PAIN head injury xray [facility] ER FU CONGITIVE COMMUNICATION. RX HERE Reason for Visit Intermittent constip ation Leg edema, left Varicose veins of both legs with edema Debility Lightheadedness Overactive bladder Atherosclerotic heart disease of [place] coronary artery without angina pectoris Essential hypertension Presence of stent in coronary artery Hyperlipidemia Bronchiectasis Hypoxemia Abdominal wall hernia Essential hypertension Restless leg syndrome Seizure disorder Acute bronchitis Right inguinal hernia Fall (on)(from) incline, subsequent encounter Visit for suture removal Chief Complaint SOB/SELF REF. 3 M FU 3 M FU NON-PRODUCTIVE COUGH Amb Documentation ABD WALL PAIN head injury xray [facility] ER FU CONGITIVE COMMUNICATION. RX HERE Primary osteoarthritis, left shoulder CONGITIVE COMMUNICATION. RX HERE Reason for Visit Atherosclerotic hear t disease of [place] coronary artery without angina pectoris Essential hypertension Presence of stent in coronary artery Hyperlipidemia Bronchiectasis Hypoxemia Abdominal wall hernia Essential hypertension Restless leg syndrome Seizure disorder Acute bronchitis Right inguinal hernia Fall (on)(from) incline, subsequent encounter Visit for suture removal Chief Complaint SOB/SELF REF. 3 M FU 3 M FU NON-PRODUCTIVE COUGH Amb Documentation ABD WALL PAIN head injury xray [facility] ER FU CONGITIVE COMMUNICATION. RX HERE Primary osteoarthritis, left shoulder CONGITIVE COMMUNICATION. RX HERE POST FALL LAST NIGHT/LEFT ARM PAIN/HIT HEAD EORDERS Reason for Visit Atherosclerotic hear t disease of [place] coronary artery without angina pectoris Essential hypertension [...] WALL PAIN head injury xray [facility] ER FU CONGITIVE COMMUNICATION. RX HERE [...] contusion Scalp contusion Atherosclerotic heart disease of [place] coronary artery without angina pectoris Debility Essential [...] contusion Scalp contusion Atherosclerotic heart disease of [place] coronary artery without angina pectoris Debility Essential [...] Restless leg syndrome Atherosclerotic heart disease of [place] coronary artery without angina pectoris Essential hypertension [...] Restless leg syndrome Atherosclerotic heart disease of [place] coronary artery without angina pectoris Essential hypertension Lightheadedness Hyperlipidemia Mass of upper inner quadrant of left breast Contusion of thoracic wall Lumbar contusion Atherosclerotic heart disease of [place] coronary artery without angina pectoris Cancer Essential [...] for Visit Atherosclerotic hear t disease of [place] coronary artery without angina pectoris Essential hypertension Lightheadedness Hyperlipidemia Mass of upper inner quadrant of left breast Contusion of thoracic wall Lumbar contusion Atherosclerotic heart disease of [place] coronary artery without angina pectoris Cancer Essential [...] sting Bronchiectasis Hypoxemia Atherosclerotic heart disease of [place] coronary artery without angina pectoris ALEXANDER (dyspnea on exertion) Hyperlipidemia Chief Complaint LUMP IN MIDDLE OF CH EST NUMEROUS BEE STINGS/TOP OF THIGH/RIGHT LEG RASH 3 M FU E ORDERS CONGITIVE COMM,BALANCE,WEAKNESS RX HERE 4 M FU Flu Shot DYSPNEA VISION LOSS Reason for Visit Sternal deformity Bee sting Bronchiectasis Hypoxemia Atherosclerotic heart disease of [place] coronary artery without angina pectoris ALEXANDER (dyspnea on exertion) Hyperlipidemia Chief Complaint NUMEROUS BEE STINGS/ TOP OF THIGH/RIGHT LEG RASH 3 M FU E ORDERS CONGITIVE COMM,BALANCE,WEAKNESS RX HERE 4 M FU Flu Shot DYSPNEA VISION LOSS LEFT BREAST LUMP FOLLOW UP Reason for Visit Bee sting Bronchiectasis Hypoxemia Atherosclerotic heart disease of [place] coronary artery without angina pectoris ALEXANDER (dyspnea on exertion) Hyperlipidemia Chief Complaint LEFT BREAST LUMP FOL LOW UP 6 M FU BACK BRACE RX HERE left hip issues 6 M FU EORDERS Reason for Visit Atherosclerotic hear t disease of [place] coronary artery without angina pectoris Debility Essential [...] for Visit Atherosclerotic hear t disease of [place] coronary artery without angina pectoris Debility Essential hypertension Falls frequently Hiatal hernia Hyperlipidemia Restless leg syndrome Right inguinal hernia Vascular dementia Difficulty swallowing Hiatal hernia Mass of upper inner quadrant of left breast Sternal deformity Osteoporosis Bronchiectasis Hypoxemia Atherosclerotic heart disease of [place] coronary artery without angina pectoris Dizziness Hyperlipidemia Chief Complaint BACK BRACE RX HERE left hip issues 6 M FU EORDERS 6 M FU DIZZINESS Amb Documentation Reason for Visit Hiatal hernia Mass of upper inner quadrant of left breast Sternal deformity Osteoporosis Bronchiectasis Hypoxemia Atherosclerotic heart disease of [place] coronary artery without angina pectoris Dizziness Hyperlipidemia Chief Complaint Admit Date RIGHT KNEE July 05, 2024 1:18pm Surgery Clearance July 07, 2024 11:42am OSTEOARTHRITIS OF RIGHT KNEE. RX HERE No vember 2023 1:30pm RIGHT KNEE July 12, 2024 3:46pm RIGHT KNEE July 19, 2024 3 :39pm Room 2 July 19, 2024 4 :00pm fall September 18, 2024 8 :36am F/U Usp Discharge September 1:03pm SCREENING October 18, 2024 1:23 pm 6 M FU October 22, 2024 2:11 pm Reason for Visit Admit Date Osteoarthritis of right knee July 052023 1:18pm Atherosclerotic heart diseas e of [place] coronary artery without angina pectoris July 07, [...] History of repair of hiatal hernia Febru 2024 1:03pm Hypothyroidism October 14, 2024 1:03pm Seizure disorder October 14, 2024 1:03pm Difficulty swallowing October 14 1:03pm Kyphoscoliosis deformity of spine Februa 2024 1:03pm RSD (reflex sympathetic dystrophy) Febru 2024 1:03pm Bronchiectasis October 22, 2024 2:11 pm Kyphoscoliosis deformity of spine October 22, 2024 2:11pm Chief Complaint Admit Date RIGHT KNEE July 19, 2024 3 :39pm Room 2 July 19, 2024 4 :00pm fall September 18, 2024 8 :36am F/U Usp Discharge September 1:03pm SCREENING October 18, 2024 [...] History of repair of hiatal hernia u 2024 1:03pm Hypothyroidism October 14, 2024 1:03pm Seizure disorder October 14, 2024 1:03pm Difficulty swallowing October 14 1:03pm Kyphoscoliosis deformity of spine Februa ry 2024 1:03pm RSD (reflex sympathetic dystrophy) u 2024 1:03pm Bronchiectasis October 22, 2024 2:11 pm Kyphoscoliosis deformity of spine October 22, 2024 2:11pm Chief Complaint Admit Date fall September 18, 2024 8 :36am F/U Usp Discharge September 1:03pm SCREENING October 18, 2024 [...] 22, 2024 2:11pm Chief Complaint Admit Date F/U Usp Discharge September 1:03pm SCREENING October 18, 2024 1:23 pm 6 M FU October 22, 2024 2:11 pm BALANCE PROB,WEAKNESS,REPEATED FALLS/RX HERE February 01, 2025 1:30pm UPPER EXTREMITY February 03, 2025 4:05 am Family History No Family History Records Found [...] Date/ Time Name of Medical Power of Television Presenter Delroy PURVIS hu sband September 01, 2021 6:35pm Name of Medical Power of Television Presenter Delroy dinero September 02, 2021 8:44pm Name of Medical Power of Television Presenter dl Douglas September 05, 2021 12:39pm Living Will Yes October 05 6:26pm Power of Television Presenter Yes October 05, 2021 6:26pm Advance Directive Response Recorded Date/ Time Living Will Yes October 05 6:26pm Power of Television Presenter Yes October 05, 2021 6:26pm Advance Directive Response Recorded Date/ Time Name of Medical Power of Television Presenter ? February 15, 2022 9:51am Living Will Yes February 15, 2022 9 :51am Power of Television Presenter Yes February 15, 2022 9:51am Advance Directive Response Recorded Date/ Time Name of Medical Power of Television Presenter ? February 15, 2022 9:51am Name of Medical Power of Television Presenter delroy jones e- March 15, 2022 7:44pm Living Will Yes March 15, 2022 7:44pm Power of Television Presenter Yes March 15 7:44pm Advance Directive Response Recorded Date/ Time Name of Medical Power of Television Presenter delroy jonese- March 15, 2022 6:44pm Name of Medical Power of Television Presenter delroy -- July 13, 2022 12:23am Living Will Yes July 13, 2 022 12:23am Power of Television Presenter Yes July 13, 2022 12:23am Advance Directive Response Recorded Date/ Time Name of Medical Power of Television Presenter delroy --shireenban d July 13, 2022 12:23am Living Will Yes July 13, 2 022 12:23am Power of Television Presenter Yes July 13, 2022 12:23am Advance Directive Response Recorded Date/ Time Name of Medical Power of Television Presenter delroy --shireenban d July 13, 2022 12:23am Name of Medical Power of Television Presenter HUSBND October 16, 2022 6:43pm Living Will Yes October 16, 2022 6:43pm Power of Television Presenter Yes October 16 6:43pm Advance Directive Response Recorded Date/ Time Name of Medical Power of Television Presenter HUSBND October 16, 2022 7:43pm Living Will Yes October 16, 2022 7:43pm Power of Television Presenter Yes October 16 7:43pm Advance Directive Response Recorded Date/ Time Living Will Yes January 20, 2023 8 :53am Power of Television Presenter Yes January 20, 2023 8:53am Name of Medical Power of Television Presenter HUSBND October 16, 2022 7:43pm Advance Directive Response Recorded Date/ Time Living Will Yes January 20, 2023 8 :53am Power of Television Presenter Yes January 20, 2023 8:53am Advance Directive Response Recorded Date/ Time Living Will Yes March 24, 2023 11:37am Power of Television Presenter Yes March 24 11:37am Advance Directive Response Recorded Date/ Time Living Will Yes May 15, 2023 2:11pm Power of Television Presenter Yes April 2:11pm Advance Directive Response Recorded Date/ Time Living Will Yes May 15, 2023 1:11pm Power of Television Presenter Yes April 1:11pm Documents on File Type Date Recorded Patient Power Tool Repair Technician Expl anation Advance Directive(s) 08/06/2024 2:46 PM Documents on File Type Date Recorded Patient Power Tool Repair Technician Expl anation Advance Directive(s) 08/06/2024 2:46 PM Advance Directive Response Recorded Date/ Time Living Will Yes March 16, 2024 9:39am Power of Television Presenter Yes March 16 9:39am Living Will Yes June 07 8:50am Power of Television Presenter Yes June 07, 2024 8:50am Living Will Yes September 18 10:27am Power of Television Presenter Yes September 18, 2024 10:27am Name of Medical Power of Television Presenter September 18, 2024 10:27am Advance Directive Response Recorded Date/ Time Living Will Yes March 16, 2024 9:39am Do you have a Healthcare Power of Television Presenter? Yes March 16, 2024 9:39am Living Will Yes September 18 10:27am Do you have a Healthcare Power of Television Presenter? Yes September 18, 2024 10:27am Name of Medical Power of Television Presenter September 18, 2024 10:27am Advance Directive Response Recorded Date/ Time Living Will Yes March 16, 2024 9:39am Do you have a Healthcare Power of Television Presenter? Yes March 16, 2024 9:39am Do you have a Healthcare Power of Television Presenter? Yes February 03, 2025 4:07am Reason for Referral Specialty Diagnoses / Procedures Referred By Contsada t Referred To Contact [facility] Diagnoses Dementia without behavioral disturbance, unspecified dementia type (HCC) Cognitive communication deficit Procedures CONSULT TO SPEECH THERAPY OFFICE/OUTPATIENT [facility] 60-74 MINUTES Laisha Lizarraga, ROSMERY.[employer] [address] [place] [address] [facility] [employer] [address] [place] [address] Referral ID Status Reason Start Date Expiration Date Visits Requested Visits Authorized [id number] Authorized Auto-Generat ed Referral 04/11/2022 04/11/2023 99 99 Specialty Diagnoses / Procedures Referred By Contac t Referred To Contact MR IMAGING Diagnoses 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) Procedures MRI 3D POST PROCESSING 3D RENDERING W/INTERP&POSTPROC DIFF WORK STATION Laisha Lizarraga, ROSMERY[employer] [address] [phone] Mr Imaging Referral ID Status Reason Start Date Expiration Date Visits Requested Visits Authorized [id number] Authorized Auto-Generat ed Referral 11/13/2022 12/13/2023 1 1 Specialty Diagnoses / Procedures Referred By Contac t Referred To Contact MR IMAGING Diagnoses 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) Procedures MRI BRAIN W QUANT WO IVCON MRI BRAIN BRAIN STEM W/O CONTRAST MATERIAL Laisha Lizarraga, DIGITAL RESEARCH ANALYST.WO[employer]ING [employer]ER [address] [phone] Mr Imaging Referral ID Status Reason Start Date Expiration Date Visits Requested Visits Authorized [id number] Authorized Auto-Generat ed Referral 11/13/2022 12/13/2023 1 1 Specialty Diagnoses / Procedures Referred By Contac t Referred To Contact MR IMAGING Diagnoses 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) Procedures MRI 3D POST PROCESSING 3D RENDERING W/INTERP&POSTPROC DIFF WORK STATION Laisha Lizarraga, DIGITAL RESEARCH ANALYST.[employer]ER [address] [phone] Mr Imaging [place] [address] Referral ID Status Reason Start Date Expiration Date V isits Requested Visits Authorized [id number] Closed Auto-Generate d Referral 11/13/2022 12/13/2023 1 1 Specialty Diagnoses / Procedures Referred By Contac t Referred To Contact MR IMAGING Diagnoses 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) Procedures MRI BRAIN W QUANT WO IVCON MRI BRAIN BRAIN STEM W/O CONTRAST MATERIAL Laisha Lizarraga, DIGITAL RESEARCH ANALYST.[employer]ING [employer]ER [address] [phone] Mr Imaging [id number] Referral ID Status Reason Start Date Expiration Date V isits Requested Visits Authorized [id number] Closed Auto-Generate d Referral 11/13/2022 12/13/2023 1 1 Specialty Diagnoses / Procedures Referred By Contac t Referred To Contact General Surgery Diagnoses Hiatal hernia Gastroesophageal reflux disease, unspecified whether esophagitis present Procedures CONSULT TO GENERAL SURGERY OFFICE/OUTPATIENT NEW HIGH MDM 60 MINUTES Susan Squires MD [address] [place] [address] Laisha Sheppard MD [address] [phone] Referral ID Status Reason Start Date Expiration Date Visits Requested Visits Authorized [id number] Authorized PCP Requested Referral 05/17/2024 05/17/2025 1 1 Specialty Diagnoses / Procedures Referred By Contac t Referred To Contact CT IMAGING Diagnoses Hiatal hernia Procedures CT CHEST W IVCON DIAGNOSTIC COMPUTED TOMOGRAPHY THORAX W/CONTRAST Anila De Paz MD [address] [place], [place] [address] Ct Imaging [facility] Referral ID Status Reason Start Date Expiration Date Visits Requested Visits Authorized [id number] New Request Auto-Generat ed Referral 06/18/2024 07/18/2025 1 1 Specialty Diagnoses / Procedures Referred By Contac t Referred To Contact CT IMAGING Diagnoses Hiatal hernia Procedures CT ABD/PEL W IVCON CT ABD & PELVIS W/CONTRAST Anila De Paz MD [address] [place], [place] [address] Ct Imaging [place] [address] Referral ID Status Reason Start Date Expiration Date Visits Requested Visits Authorized [id number] New Request Auto-Generat ed Referral 06/18/2024 07/18/2025 1 1 Specialty Diagnoses / Procedures Referred By Contac t Referred To Contact [facility] Diagnoses Hiatal hernia Procedures EGD DIAGNOSTIC ESOPHAGOGASTRODUODENOSC OPY TRANSORAL DIAGNOSTIC Anila De Paz MD [address] [place], [place] [address] [facility] [employer] [address] [place] [phone] Referral ID Status Reason Start Date Expiration Date Visits Requested Visits Authorized [id number] Authorized Auto-Generat ed Referral 06/18/2024 06/18/2025 1 1 Referral ID Status Reason Start Date Expiration Date V isits Requested Visits Authorized [id number] Closed Auto-Generate d Referral 06/18/2024 07/18/2025 1 1 Specialty Diagnoses / Procedures Referred By Contac t Referred To Contact Diagnoses 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, psychotic disturbance, mood disturbance, or anxiety (HCC) Procedures PROVIDER ORDERED FOLLOW UP OFFICE/OUTPATIENT [facility] 60 MINUTES Laisha Lizarraga, ROSMERY.[employer]ER [address] [phone] Referral ID Status Reason Start Date Expiration Date Visits Requested Visits Authorized [id number] Authorized PCP Requested Referral 07/01/2025 1 1 Specialty Diagnoses / Procedures Referred By Contac t Referred To Contact Neurology Diagnoses Paresthesia of both feet Procedures CONSULT TO NEUROLOGY OFFICE/OUTPATIENT [facility] 60 MINUTES Laisha Lizarraga, ROSMERY.[employer]ER [address] [phone] Referral ID Status Reason Start Date Expiration Date Visits Requested Visits Authorized [id number] Authorized PCP Requested Referral 07/01/2025 1 1 Specialty Diagnoses / Procedures Referred By Contac t Referred To Contact MR IMAGING Diagnoses Abnormal results of liver function studies Procedures MRI 3D POST PROCESSING 3D RENDERING W/INTERP&POSTPROC DIFF WORK STATION Anila De Paz MD [address] [place], [place] [address] Mr Imaging [place] [address] Referral ID Status Reason Start Date Expiration Date Visits Requested Visits Authorized [id number] Authorized Auto-Generat ed Referral 09/03/2024 10/03/2025 1 1 Specialty Diagnoses / Procedures Referred By Contac t Referred To Contact MR IMAGING Diagnoses Abnormal results of liver function studies Procedures MRI PANC/MAGNOLIA WO/W IVCON MRI ABDOMEN W/O & W/CONTRAST MATERIAL Anila De Paz MD [address] [place], [place] [address] [place] [address] Referral ID Status Reason Start Date Expiration Date Visits Requested Visits Authorized [id number] Authorized Auto-Generat ed Referral 09/03/2024 10/03/2025 1 1 Specialty Diagnoses / Procedures Referred By Contac t Referred To Contact Diagnoses Hiatal hernia Epigastric pain Nausea and vomiting, unspecified vomiting type Pre-op exam Procedures REFER TO [facility] PREOPERATIVE [facility]IM[facility] OFFICE/OUTPATIENT [facility] 60 MINUTES Anila De Paz MD [address] [place] [id number] Referral ID Status Reason Start Date Expiration Date Visits Requested Visits Authorized [id number] Authorized PCP Requested Referral 09/03/2024 09/03/2025 1 1 Referral ID Status Reason Start Date Expiration Date V isits Requested Visits Authorized [id number] Closed Auto-Generate d Referral 09/03/2024 10/03/2025 1 1 Referral ID Status Reason Start Date Expiration Date V isits Requested Visits Authorized [id number] Closed Auto-Generate d Referral 09/03/2024 10/03/2025 1 1 Summary Purpose Additional Source Comments Source Comments (unrecognize d section and content) In the event this informatio n is protected by the Federal Confidentiality of Alcohol and Drug Abuse Patient Records regulations: The Federal rules restrict any use of the information to criminally investigate or prosecute any alcohol or drug abuse patient.[facility] the event this information is protected by the Federal Confidentiality of Alcohol and Drug Abuse Patient Records regulations: The Federal rules restrict any use of the information to criminally investigate or prosecute any alcohol or drug abuse patient.[facility]In the event this information is protected by the Federal Confidentiality of Alcohol and Drug Abuse Patient Records regulations: The Federal rules restrict any use of the information to criminally investigate or prosecute any alcohol or drug abuse patient.[facility]In the event this information is protected by the Federal Confidentiality of Alcohol and Drug Abuse Patient Records regulations: The Federal rules restrict any use of the information to criminally investigate or prosecute any alcohol or drug abuse patient.[facility]In the event this information is protected by the Federal Confidentiality of Alcohol and Drug Abuse Patient Records regulations: The Federal rules restrict any use of the information to criminally investigate or prosecute any alcohol or drug abuse patient.[facility]In the event this information is protected by the Federal Confidentiality of Alcohol and Drug Abuse Patient Records regulations: The Federal rules restrict any use of the information to criminally investigate or prosecute any alcohol or drug abuse patient.[facility]In the event this information is protected by the Federal Confidentiality of Alcohol and Drug Abuse Patient Records regulations: The Federal rules restrict any use of the information to criminally investigate or prosecute any alcohol or drug abuse patient.[facility]In the event this information is protected by the Federal Confidentiality of Alcohol and Drug Abuse Patient Records regulations: The Federal rules restrict any use of the information to criminally investigate or prosecute any alcohol or drug abuse patient.[facility]In the event this information is protected by the Federal Confidentiality of Alcohol and Drug Abuse Patient Records regulations: The Federal rules restrict any use of the information to criminally investigate or prosecute any alcohol or drug abuse patient.[facility]In the event this information is protected by the Federal Confidentiality of Alcohol and Drug Abuse Patient Records regulations: The Federal rules restrict any use of the information to criminally investigate or prosecute any alcohol or drug abuse patient.[facility]In the event this information is protected by the Federal Confidentiality of Alcohol and Drug Abuse Patient Records regulations: The Federal rules restrict any use of the information to criminally investigate or prosecute any alcohol or drug abuse patient.[facility] HospitalIn the event this information is protected by the Federal Confidentiality of Alcohol and Drug Abuse Patient Records regulations: The Federal rules restrict any use of the information to criminally investigate or prosecute any alcohol or drug abuse patient.[facility]In the event this information is protected by the Federal Confidentiality of Alcohol and Drug Abuse Patient Records regulations: The Federal rules restrict any use of the information to criminally investigate or prosecute any alcohol or drug abuse patient.[facility]In the event this information is protected by the Federal Confidentiality of Alcohol and Drug Abuse Patient Records regulations: The Federal rules restrict any use of the information to criminally investigate or prosecute any alcohol or drug abuse patient.[facility] HospitalIn the event this information is protected by the Federal Confidentiality of Alcohol and Drug Abuse Patient Records regulations: The Federal rules restrict any use of the information to criminally investigate or prosecute any alcohol or drug abuse patient.[facility]In the event this information is protected by the Federal Confidentiality of Alcohol and Drug Abuse Patient Records regulations: The Federal rules restrict any use of the information to criminally investigate or prosecute any alcohol or drug abuse patient.[facility]In the event this information is protected by the Federal Confidentiality of Alcohol and Drug Abuse Patient Records regulations: The Federal rules restrict any use of the information to criminally investigate or prosecute any alcohol or drug abuse patient.[facility] HospitalIn the event this information is protected by the Federal Confidentiality of Alcohol and Drug Abuse Patient Records regulations: The Federal rules restrict any use of the information to criminally investigate or prosecute any alcohol or drug abuse patient.[facility] HospitalIn the event this information is protected by the Federal Confidentiality of Alcohol and Drug Abuse Patient Records regulations: The Federal rules restrict any use of the information to criminally investigate or prosecute any alcohol or drug abuse patient.[facility] HospitalIn the event this information is protected by the Federal Confidentiality of Alcohol and Drug Abuse Patient Records regulations: The Federal rules restrict any use of the information to criminally investigate or prosecute any alcohol or drug abuse patient.[facility] HospitalIn the event this information is protected by the Federal Confidentiality of Alcohol and Drug Abuse Patient Records regulations: The Federal rules restrict any use of the information to criminally investigate or prosecute any alcohol or drug abuse patient.[facility] HospitalIn the event this information is protected by the Federal Confidentiality of Alcohol and Drug Abuse Patient Records regulations: The Federal rules restrict any use of the information to criminally investigate or prosecute any alcohol or drug abuse patient.[facility] HospitalIn the event this information is protected by the Federal Confidentiality of Alcohol and Drug Abuse Patient Records regulations: The Federal rules restrict any use of the information to criminally investigate or prosecute any alcohol or drug abuse patient.[facility]In the event this information is protected by the Federal Confidentiality of Alcohol and Drug Abuse Patient Records regulations: The Federal rules restrict any use of the information to criminally investigate or prosecute any alcohol or drug abuse patient.[facility] HospitalIn the event this information is protected by the Federal Confidentiality of Alcohol and Drug Abuse Patient Records regulations: The Federal rules restrict any use of the information to criminally investigate or prosecute any alcohol or drug abuse patient.[facility] HospitalIn the event this information is protected by the Federal Confidentiality of Alcohol and Drug Abuse Patient Records regulations: The Federal rules restrict any use of the information to criminally investigate or prosecute any alcohol or drug abuse patient.[facility] HospitalIn the event this information is protected by the Federal Confidentiality of Alcohol and Drug Abuse Patient Records regulations: The Federal rules restrict any use of the information to criminally investigate or prosecute any alcohol or drug abuse patient.[facility] HospitalIn the event this information is protected by the Federal Confidentiality of Alcohol and Drug Abuse Patient Records regulations: The Federal rules restrict any use of the information to criminally investigate or prosecute any alcohol or drug abuse patient.[facility] HospitalIn the event this information is protected by the Federal Confidentiality of Alcohol and Drug Abuse Patient Records regulations: The Federal rules restrict any use of the information to criminally investigate or prosecute any alcohol or drug abuse patient.[facility] HospitalIn the event this information is protected by the Federal Confidentiality of Alcohol and Drug Abuse Patient Records regulations: The Federal rules restrict any use of the information to criminally investigate or prosecute any alcohol or drug abuse patient.[facility] HospitalIn the event this information is protected by the Federal Confidentiality of Alcohol and Drug Abuse Patient Records regulations: The Federal rules restrict any use of the information to criminally investigate or prosecute any alcohol or drug abuse patient.[facility] HospitalIn the event this information is protected by the Federal Confidentiality of Alcohol and Drug Abuse Patient Records regulations: The Federal rules restrict any use of the information to criminally investigate or prosecute any alcohol or drug abuse patient.[facility] HospitalIn the event this information is protected by the Federal Confidentiality of Alcohol and Drug Abuse Patient Records regulations: The Federal rules restrict any use of the information to criminally investigate or prosecute any alcohol or drug abuse patient.[facility] HospitalIn the event this information is protected by the Federal Confidentiality of Alcohol and Drug Abuse Patient Records regulations: The Federal rules restrict any use of the information to criminally investigate or prosecute any alcohol or drug abuse patient.[facility] HospitalIn the event this information is protected by the Federal Confidentiality of Alcohol and Drug Abuse Patient Records regulations: The Federal rules restrict any use of the information to criminally investigate or prosecute any alcohol or drug abuse patient.[facility] HospitalIn the event this information is protected by the Federal Confidentiality of Alcohol and Drug Abuse Patient Records regulations: The Federal rules restrict any use of the information to criminally investigate or prosecute any alcohol or drug abuse patient.[facility] HospitalIn the event this information is protected by the Federal Confidentiality of Alcohol and Drug Abuse Patient Records regulations: The Federal rules restrict any use of the information to criminally investigate or prosecute any alcohol or drug abuse patient.[facility] HospitalIn the event this information is protected by the Federal Confidentiality of Alcohol and Drug Abuse Patient Records regulations: The Federal rules restrict any use of the information to criminally investigate or prosecute any alcohol or drug abuse patient.[facility] HospitalIn the event this information is protected by the Federal Confidentiality of Alcohol and Drug Abuse Patient Records regulations: The Federal rules restrict any use of the information to criminally investigate or prosecute any alcohol or drug abuse patient.[facility] HospitalIn the event this information is protected by the Federal Confidentiality of Alcohol and Drug Abuse Patient Records regulations: The Federal rules restrict any use of the information to criminally investigate or prosecute any alcohol or drug abuse patient.[facility] HospitalIn the event this information is protected by the Federal Confidentiality of Alcohol and Drug Abuse Patient Records regulations: The Federal rules restrict any use of the information to criminally investigate or prosecute any alcohol or drug abuse patient.[facility] HospitalIn the event this information is protected by the Federal Confidentiality of Alcohol and Drug Abuse Patient Records regulations: The Federal rules restrict any use of the information to criminally investigate or prosecute any alcohol or drug abuse patient.[facility] HospitalIn the event this information is protected by the Federal Confidentiality of Alcohol and Drug Abuse Patient Records regulations: The Federal rules restrict any use of the information to criminally investigate or prosecute any alcohol or drug abuse patient.[facility] HospitalIn the event this information is protected by the Federal Confidentiality of Alcohol and Drug Abuse Patient Records regulations: The Federal rules restrict any use of the information to criminally investigate or prosecute any alcohol or drug abuse patient.[facility] HospitalIn the event this information is protected by the Federal Confidentiality of Alcohol and Drug Abuse Patient Records regulations: The Federal rules restrict any use of the information to criminally investigate or prosecute any alcohol or drug abuse patient.[facility] HospitalIn the event this information is protected by the Federal Confidentiality of Alcohol and Drug Abuse Patient Records regulations: The Federal rules restrict any use of the information to criminally investigate or prosecute any alcohol or drug abuse patient.[facility] HospitalIn the event this information is protected by the Federal Confidentiality of Alcohol and Drug Abuse Patient Records regulations: The Federal rules restrict any use of the information to criminally investigate or prosecute any alcohol or drug abuse patient.[facility] HospitalIn the event this information is protected by the Federal Confidentiality of Alcohol and Drug Abuse Patient Records regulations: The Federal rules restrict any use of the information to criminally investigate or prosecute any alcohol or drug abuse patient.[facility] HospitalIn the event this information is protected by the Federal Confidentiality of Alcohol and Drug Abuse Patient Records regulations: The Federal rules restrict any use of the information to criminally investigate or prosecute any alcohol or drug abuse patient.[facility] HospitalIn the event this information is protected by the Federal Confidentiality of Alcohol and Drug Abuse Patient Records regulations: The Federal rules restrict any use of the information to criminally investigate or prosecute any alcohol or drug abuse patient.[facility] HospitalIn the event this information is protected by the Federal Confidentiality of Alcohol and Drug Abuse Patient Records regulations: The Federal rules restrict any use of the information to criminally investigate or prosecute any alcohol or drug abuse patient.[facility] HospitalIn the event this information is protected by the Federal Confidentiality of Alcohol and Drug Abuse Patient Records regulations: The Federal rules restrict any use of the information to criminally investigate or prosecute any alcohol or drug abuse patient.[facility] HospitalIn the event this information is protected by the Federal Confidentiality of Alcohol and Drug Abuse Patient Records regulations: The Federal rules restrict any use of the information to criminally investigate or prosecute any alcohol or drug abuse patient.[facility] HospitalIn the event this information is protected by the Federal Confidentiality of Alcohol and Drug Abuse Patient Records regulations: The Federal rules restrict any use of the information to criminally investigate or prosecute any alcohol or drug abuse patient.[facility] HospitalIn the event this information is protected by the Federal Confidentiality of Alcohol and Drug Abuse Patient Records regulations: The Federal rules restrict any use of the information to criminally investigate or prosecute any alcohol or drug abuse patient.[facility] HospitalIn the event this information is protected by the Federal Confidentiality of Alcohol and Drug Abuse Patient Records regulations: The Federal rules restrict any use of the information to criminally investigate or prosecute any alcohol or drug abuse patient.[facility] HospitalIn the event this information is protected by the Federal Confidentiality of Alcohol and Drug Abuse Patient Records regulations: The Federal rules restrict any use of the information to criminally investigate or prosecute any alcohol or drug abuse patient.[facility] HospitalIn the event this information is protected by the Federal Confidentiality of Alcohol and Drug Abuse Patient Records regulations: The Federal rules restrict any use of the information to criminally investigate or prosecute any alcohol or drug abuse patient.[facility] HospitalIn the event this information is protected by the Federal Confidentiality of Alcohol and Drug Abuse Patient Records regulations: The Federal rules restrict any use of the information to criminally investigate or prosecute any alcohol or drug abuse patient.[facility] HospitalIn the event this information is protected by the Federal Confidentiality of Alcohol and Drug Abuse Patient Records regulations: The Federal rules restrict any use of the information to criminally investigate or prosecute any alcohol or drug abuse patient.[facility] HospitalIn the event this information is protected by the Federal Confidentiality of Alcohol and Drug Abuse Patient Records regulations: The Federal rules restrict any use of the information to criminally investigate or prosecute any alcohol or drug abuse patient.[facility] HospitalIn the event this information is protected by the Federal Confidentiality of Alcohol and Drug Abuse Patient Records regulations: The Federal rules restrict any use of the information to criminally investigate or prosecute any alcohol or drug abuse patient.[facility] HospitalIn the event this information is protected by the Federal Confidentiality of Alcohol and Drug Abuse Patient Records regulations: The Federal rules restrict any use of the information to criminally investigate or prosecute any alcohol or drug abuse patient.[facility] HospitalIn the event this information is protected by the Federal Confidentiality of Alcohol and Drug Abuse Patient Records regulations: The Federal rules restrict any use of the information to criminally investigate or prosecute any alcohol or drug abuse patient.[facility] HospitalIn the event this information is protected by the Federal Confidentiality of Alcohol and Drug Abuse Patient Records regulations: The Federal rules restrict any use of the information to criminally investigate or prosecute any alcohol or drug abuse patient.[facility] HospitalIn the event this information is protected by the Federal Confidentiality of Alcohol and Drug Abuse Patient Records regulations: The Federal rules restrict any use of the information to criminally investigate or prosecute any alcohol or drug abuse patient.[facility] HospitalIn the event this information is protected by the Federal Confidentiality of Alcohol and Drug Abuse Patient Records regulations: The Federal rules restrict any use of the information to criminally investigate or prosecute any alcohol or drug abuse patient.[facility] HospitalIn the event this information is protected by the Federal Confidentiality of Alcohol and Drug Abuse Patient Records regulations: The Federal rules restrict any use of the information to criminally investigate or prosecute any alcohol or drug abuse patient.[facility] HospitalIn the event this information is protected by the Federal Confidentiality of Alcohol and Drug Abuse Patient Records regulations: The Federal rules restrict any use of the information to criminally investigate or prosecute any alcohol or drug abuse patient.[facility] HospitalIn the event this information is protected by the Federal Confidentiality of Alcohol and Drug Abuse Patient Records regulations: The Federal rules restrict any use of the information to criminally investigate or prosecute any alcohol or drug abuse patient.[facility] HospitalIn the event this information is protected by the Federal Confidentiality of Alcohol and Drug Abuse Patient Records regulations: The Federal rules restrict any use of the information to criminally investigate or prosecute any alcohol or drug abuse patient.[facility] HospitalIn the event this information is protected by the Federal Confidentiality of Alcohol and Drug Abuse Patient Records regulations: The Federal rules restrict any use of the information to criminally investigate or prosecute any alcohol or drug abuse patient.[facility]In the event this information is protected by the Federal Confidentiality of Alcohol and Drug Abuse Patient Records regulations: The Federal rules restrict any use of the information to criminally investigate or prosecute any alcohol or drug abuse patient.[facility] HospitalIn the event this information is protected by the Federal Confidentiality of Alcohol and Drug Abuse Patient Records regulations: The Federal rules restrict any use of the information to criminally investigate or prosecute any alcohol or drug abuse patient.[facility]In the event this information is protected by the Federal Confidentiality of Alcohol and Drug Abuse Patient Records regulations: The Federal rules restrict any use of the information to criminally investigate or prosecute any alcohol or drug abuse patient.[facility] HospitalIn the event this information is protected by the Federal Confidentiality of Alcohol and Drug Abuse Patient Records regulations: The Federal rules restrict any use of the information to criminally investigate or prosecute any alcohol or drug abuse patient.[facility] HospitalIn the event this information is protected by the Federal Confidentiality of Alcohol and Drug Abuse Patient Records regulations: The Federal rules restrict any use of the information to criminally investigate or prosecute any alcohol or drug abuse patient.[facility] HospitalIn the event this information is protected by the Federal Confidentiality of Alcohol and Drug Abuse Patient Records regulations: The Federal rules restrict any use of the information to criminally investigate or prosecute any alcohol or drug abuse patient.[facility] HospitalIn the event this information is protected by the Federal Confidentiality of Alcohol and Drug Abuse Patient Records regulations: The Federal rules restrict any use of the information to criminally investigate or prosecute any alcohol or drug abuse patient.[facility] HospitalIn the event this information is protected by the Federal Confidentiality of Alcohol and Drug Abuse Patient Records regulations: The Federal rules restrict any use of the information to criminally investigate or prosecute any alcohol or drug abuse patient.[facility] the event this information is protected by the Federal Confidentiality of Alcohol and Drug Abuse Patient Records regulations: The Federal rules restrict any use of the information to criminally investigate or prosecute any alcohol or drug abuse patient.[facility] the event this information is protected by the Federal Confidentiality of Alcohol and Drug Abuse Patient Records regulations: The Federal rules restrict any use of the information to criminally investigate or prosecute any alcohol or drug abuse patient.[facility] the event this information is protected by the Federal Confidentiality of Alcohol and Drug Abuse Patient Records regulations: The Federal rules restrict any use of the information to criminally investigate or prosecute any alcohol or drug abuse patient.[facility] Reason for Visit (unrecogniz ed section and content) Reason Comments OT Discharge Specialty Diagnoses / Procedures Referred By Vivienne hunt Referred To Contact [facility] Diagnoses Fine motor impairment Procedures CONSULT TO NARCOTICS AGENT OCCUPATIONAL THERAPY EVAL HIGH COMPLEX 60 MINS Laisha Lizarraga, DIGITAL RESEARCH ANALYST.[employer] [address] [employer] [place] [phone] Phone: tel: fax: [facility] [address] [place], [place] [phone] Referral ID Status Reason Start Date Expiration Date Visits Requested Visits Authorized [id number] Authorized PCP Requested Referral Auto-Generate d Referral [...] MRI Specialty Diagnoses / Procedures Referred By Vivienne hunt Referred To Contact MR IMAGING Diagnoses 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) Procedures MRI BRAIN W QUANT WO IVCON MRI BRAIN BRAIN STEM W/O CONTRAST MATERIAL Laisha Lizarraga, DIGITAL RESEARCH ANALYST.[employer] [address] [employer] [place] [phone] Mr Imaging [facility] Referral ID Status Reason Start Date Expiration Date V isits Requested Visits Authorized [id number] Closed Auto-Generate d Referral 11/13/2022 12/13/2023 1 1 Reason Comments Consult Diaphragmatic Hernia Reason Onset Date Comments Refill Request 06/10/2024 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 Reason Comments Consult Specialty Diagnoses / Procedures Referred By Contac t Referred To Contact General Surgery Diagnoses Hiatal hernia Gastroesophageal reflux disease, unspecified whether esophagitis present Procedures CONSULT TO GENERAL SURGERY OFFICE/OUTPATIENT [facility] 60 MINUTES Susan Squires MD [address] [place] [address] Laisha Sheppard MD [address] [place] [address] Referral ID Status Reason Start Date Expiration Date V isits Requested Visits Authorized [id number] Closed PCP Requested Referral 05/17/2024 05/17/2025 [address] Specialty Diagnoses / Procedures Referred By Vivienne t Referred To Contact CT IMAGING Diagnoses Hiatal hernia Procedures CT ABD/PEL W IVCON CT ABD & PELVIS W/CONTRAST Anila De Paz MD [address] [place] [address] Ct Imaging [place] [address] Referral ID Status Reason Start Date Expiration Date V isits Requested Visits Authorized [id number] Closed Auto-Generate d Referral 06/18/2024 07/18/2025 1 [...] Patient Specialty Diagnoses / Procedures Referred By Contac t Referred To Contact Cardiology Diagnoses H/O acute myocardial infarction Cardiomyopathy, unspecified type (HCC) Pre-op evaluation Procedures CONSULT TO CARDIOLOGY OFFICE/OUTPATIENT [facility] 60 MINUTES Anila De Paz MD [address] [place], [place] [id number] Referral ID Status Reason Start Date Expiration Date V isits Requested Visits Authorized [id number] Closed PCP Requested Referral 06/18/2024 06/18/2025 1 1 Reason Comments Consult Paresthesia of both feet/ illegal writing Specialty Diagnoses / Procedures Referred By Contac t Referred To Contact Neurology Diagnoses Paresthesia of both feet Procedures CONSULT TO NEUROLOGY OFFICE/OUTPATIENT [facility] 60 MINUTES Laisha Lizarraga, DIGITAL RESEARCH ANALYST.[employer]ER [address] [place] [address] Referral ID Status Reason Start Date Expiration Date V isits Requested Visits Authorized [id number] Closed PCP Requested Referral 07/31/2024 07/01/2025 1 1 Reason Comments Patient Question Next Steps Reason Comments Follow Up (DSRS) Reason Comments 09/20/24 Reason Comments Pre-Op Teaching Reason Comments Preparations For Surgery Pre-op Aspirin instructions Specialty Diagnoses / Procedures Referred By Contac t Referred To Contact MR IMAGING Diagnoses Abnormal results of liver function studies Procedures MRI PANC/MAGNOLIA WO/W IVCON MRI ABDOMEN W/O & W/CONTRAST MATERIAL Anila De Paz MD [address] [place] [address] Mr Imaging [place] [address] Referral ID Status Reason Start Date Expiration Date V isits Requested Visits Authorized [id number] Closed Auto-Generate d Referral 09/03/2024 10/03/2025 1 1 Reason Comments Patient Update 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 Reason Comments Preparations For Surgery PACC Reason Onset Date Comments EMG 09/10/2024 Specialty Diagnoses / Procedures Referred By Contac t Referred To Contact [facility] Diagnoses Neuropathy Procedures EMG(NEURO/NI) NERVE CONDUCTION STUDIES 9-10 STUDIES Denice Jacobs PA-C [address] [place] [address] Neurological [facility] [place] [address] Referral ID Status Reason Start Date Expiration Date V isits Requested Visits Authorized [id number] Closed Auto-Generate d Referral 08/06/2024 08/06/2025 1 1 Reason Comments Consult surgery 09/20/24 at [facility] in Reason Comments Post Op Reason Comments [...] W IVCON CT ABD & PELVIS W/CONTRAST De Paz, Anila A, MD [address] [place] [address] Phone: tel: fax: [place] [address] Referral ID Status Reason Start Date Expiration Date V isits Requested Visits Authorized [id number] Closed Auto-Generate d Referral 11/02/2024 12/02/2025 1 1 Reason Onset Date Comments Refill Request 12/16/2024 Reason Comments Abrasion to right forearm x1 day Reason Comments Established Patient Reason Comments Follow Up Care Teams (unrecognized sec tion and content) [employer] Relationship Specialty Start Date End Date Bryant Melendrez MD [address] [place], [place] [phone] PCP - General Internal Medicine 11/20/20 [employer] Relationship Specialty Start Date End Date Bryant Melendrez MD [address] [place], [place] [phone] PCP - General Internal Medicine 11/20/20 [employer] Relationship Specialty Start Date End Date Chema Perry MD [address] [place], [place] [phone] PCP - General Internal Medicine 04/11/22 Team Status: Active Member Role Status Dates [facility] Provider Active Dr. Chema Perry MD Primary Care Provider Active Team Status: Inactive Member Role Status Dates Dr. Chema Perry MD Primary Care Provider, Attendi ng Provider Active Team Status: Inactive Member Role Status Dates Dr. Chema Perry MD Primary Care Provider, Referri ng Provider Active Sandra Vinecnt CAKE PULLER, CAKE PULLER-C Attending Provider Active Team Status: Inactive Member [...] Care Provider, Referri ng Provider Active Jd Gallego PA PA Attending Provider Active Team Status: Inactive Member Role Status Dates Dr. Chema Perry MD Primary Care Provider Active Jd Gallego PA, PA Attending Provider, Referring Pr ovider Active Team Status: Inactive Member Role Status Dates Dr. Chema Perry MD Primary Care Provider Active Cal Keith MD Emergency Provider Active [employer] Relationship Specialty Start Date End Date Chema Perry MD [address] [place] [address] PCP - General Internal Medicine 04/11/22 Team [...] Vincent Smart MD Attending Provider Active Jd Gallego PA, PA Referring Provider Active Team Status: Inactive Member Role Status Dates Dr. Chema Perry MD Primary Care Provider, Referri ng Provider Active Jerri Whitfield PA, PA Attending Provider Active Team Status: Active [...] Dr. Isma Bustamante DO Emergency Provider Active [employer] Relationship Specialty Start Date End Date Chema Perry MD [address] [place] [address] PCP - General Internal Medicine 04/11/22 Team [...] MD Attending Provider, Referring P rochelle Active [employer] Relationship Specialty Start Date End Date Chema Perry MD [address] [facility] [place] [address] PCP - General Internal Medicine 04/11/22 Team Status: Inactive Member Role Status Dates Dr. Chema Perry MD Primary Care Provider Active Dr. Sarbjit Kraus MD Attending Provider, Referr ing Provider Active [employer] Relationship Specialty Start Date End Date Chema Perry MD [address] [place] [address] PCP - General Internal Medicine 04/11/22 Stephanie Brush [address] [facility] [place] [address] Referring Ophthalmology 07/23/23 Team Status: Active Member Role Status Dates Dr. Chema Perry MD Primary Care Provider Active Dr. Porfirio Bloom MD Attending Provider, Referring Provider Active [employer] Relationship Specialty Start Date End Date Chema Perry MD [address] [place] [address] PCP - General Internal Medicine 04/11/22 Stephanie Brush [address] [facility] [place] [address] Referring Ophthalmology 07/23/23 [employer]ator [employer] Relationship Specialty Start Date End Date Chema Perry MD [address] [place] [address] PCP - General Internal Medicine 04/11/22 Stephanie Brush [address] [facility] [place] [address] Referring Ophthalmology 07/23/23 Team Status: Inactive Member Role Status Dates Dr. Chema Perry MD Primary Care Provider, Referri ng Provider Active Tamiko Ku CAKE PULLER, CAKE PULLER-C Attending Provider Active Team Status: Inactive Member [...] MD Primary Care Provider Active Tamiko Ku CAKE PULLER, CAKE PULLER-C Attending Provider Active Team Status: Inactive Member Role Status Dates Dr. Chema Perry MD Primary Care Provider Active Tamiko Ku CAKE PULLER, CAKE PULLER-C Attending Provider, Referring P rochelle Active [employer] Relationship Specialty Start Date End Date Chema Perry MD [address] [place] [address] PCP - General Internal Medicine 04/11/22 Stephanie Brush [address] [facility] [place] [address] Referring Ophthalmology 07/23/23 [employer] Relationship Specialty Start Date End Date Chema Perry MD [address] [place] [address] PCP - General Internal Medicine 04/11/22 Stephanie Brush [address] [facility] [place] [address] Referring Ophthalmology 07/23/23 [employer]ator [employer] Relationship Specialty Start Date End Date Chema Perry MD [address] [place] [address] PCP - General Internal Medicine 04/11/22 Stephanie Brush [address] [facility] [place] [address] Referring Ophthalmology 07/23/23 Porfirio Carreon [address] [place] [phone] Referring Orthopedics 02/10/24 [employer]ator [employer] Relationship Specialty Start Date End Date Chema Perry MD [address] [place] [address] PCP - General Internal Medicine 04/11/22 Stephanie Brush [address] [facility] [address] [place], [place] [address] Referring Ophthalmology 07/23/23 Porfirio Carreon [address] [place] [phone] Referring Orthopedics 02/10/24 [employer]ator [employer] Relationship Specialty Start Date End Date Chema Perry MD [address] [place], [place] [address] PCP - General Internal Medicine 04/11/22 Stephanie Brush [address] [place] [place], [place] [address] Referring Ophthalmology 07/23/23 Porfirio Carreon [address] [place] [phone] Referring Orthopedics 02/10/24 [employer]ator [employer] Relationship Specialty Start Date End Date Chema Perry MD [address] [place] [address] PCP - General Internal Medicine 04/11/22 Stephanie Brush MD [address] [facility] [place] [address] Referring Ophthalmology 07/23/23 Porfirio Carreon [address] [place] [phone] Referring Orthopedics 02/10/24 [employer]ator [employer] Relationship Specialty Start Date End Date Chema Perry MD [address] [place] [address] PCP - General Internal Medicine 04/11/22 [employer]ator [employer] Relationship Specialty Start Date End Date Chema Perry MD [address] [place] [address] PCP - General Internal Medicine 04/11/22 Stephanie Brush MD [address] [place] [address] Referring Ophthalmology 07/23/23 Porfirio Carreon [address] [place] [phone] Referring Orthopedics 02/10/24 Curator [employer] Relationship Specialty Start Date End Date Chema Perry MD [address] [place] [address] PCP - General Internal Medicine 04/11/22 Stephanie Brush MD [address] [place] [address] Referring Ophthalmology 07/23/23 Porfirio Carreon [address] [place] [phone] Referring Orthopedics 02/10/24 Curator [employer] Relationship Specialty Start Date End Date Chema Perry MD [address] [place] [address] PCP - General Internal Medicine 04/11/22 Stephanie Brush MD [address] [facility] [place] [address] Referring Ophthalmology 07/23/23 Porfirio Carreon [address] [place] [phone] Referring Orthopedics 02/10/24 Curator [employer] Relationship Specialty Start Date End Date Chema Perry MD [address] [place] [address] PCP - General Internal Medicine 04/11/22 Stephanie Brush MD [address] [facility] [address] [place], [place] [address] Referring Ophthalmology 07/23/23 Porfirio Carreon [address] [place] [phone] Referring Orthopedics 02/10/24 Curator [employer] Relationship Specialty Start Date End Date Chema Perry MD [address] [place] [address] PCP - General Internal Medicine 04/11/22 Stephanie Brush MD [address] [facility] [place] [address] Referring Ophthalmology 07/23/23 Porfirio Carreon [address] [place] [phone] Referring Orthopedics 02/10/24 Curator [employer] Relationship Specialty Start Date End Date Chema Perry MD [address] [place] [address] PCP - General Internal Medicine 04/11/22 Stephanie Brush MD [address] [facility] [address] [place], [place] [address] Referring Ophthalmology 07/23/23 Porfirio Carreon [address] [place] [phone] Referring Orthopedics 02/10/24 Curator [employer] Relationship Specialty Start Date End Date Chema Perry MD [address] [place], [place] [address] PCP - General Internal Medicine 04/11/22 Stephanie Brush MD [address] [facility] [place] [address] Referring Ophthalmology 07/23/23 Porfirio Carreon [address] [facility] 2 [place] [phone] Referring Orthopedics 02/10/24 Curator [employer] Relationship Specialty Start Date End Date Chema Perry MD [address] [place] [address] PCP - General Internal Medicine 04/11/22 Stephanie Brush MD [address] [facility] [place] [address] Referring Ophthalmology 07/23/23 Porfirio Carreon [address] [place] [phone] Referring Orthopedics 02/10/24 Curator [employer] Relationship Specialty Start Date End Date Chema Perry MD [address] [facility] [place] [address] PCP - General Internal Medicine 04/11/22 Stephanie Brush MD [address] [facility] [place] [address] Referring Ophthalmology 07/23/23 Porfirio Carreon [address] [place] [phone] Referring Orthopedics 02/10/24 Curator [employer] Relationship Specialty Start Date End Date Chema Perry MD [address] [place], [place] [address] PCP - General Internal Medicine 04/11/22 Stephanie Brush MD [address] [facility] [place] [address] Referring Ophthalmology 07/23/23 Porfirio Carreon [address] [place] [phone] Referring Orthopedics 02/10/24 Curator [employer] Relationship Specialty Start Date End Date Chema Perry MD [address] [place] [address] PCP - General Internal Medicine 04/11/22 Stephanie Brush MD [address] [facility] [place] [address] Referring Ophthalmology 07/23/23 Porfirio Carreon [address] [place] [phone] Referring Orthopedics 02/10/24 Curator [employer] Relationship Specialty Start Date End Date Chema Perry MD [address] [place] [address] PCP - General Internal Medicine 04/11/22 Stephanie Brush MD [address] [facility] [place] [address] Referring Ophthalmology 07/23/23 Porfirio Carreon [address] [place] [phone] Referring Orthopedics 02/10/24 Curator [employer] Relationship Specialty Start Date End Date Chema Perry MD [address] [place] [address] PCP - General Internal Medicine 04/11/22 Stephanie Brush MD [address] [facility] [place] [address] Referring Ophthalmology 07/23/23 Porfirio Carreon [address] [place] [phone] Referring Orthopedics 02/10/24 Curator [employer] Relationship Specialty Start Date End Date Chema Perry MD [address] [place] [address] PCP - General Internal Medicine 04/11/22 Stephanie Brush MD [address] [facility] [place] [address] Referring Ophthalmology 07/23/23 Porfirio Carreon [address] [facility] [place] [phone] Referring Orthopedics 02/10/24 [place] [address] [place] [address] Cuff Setter Lock[employer]ch Cardiology 08/03/24 Curator [employer] Relationship Specialty Start Date End Date Chema Perry MD [address] [place] [address] PCP - General Internal Medicine 04/11/22 Stephanie Brush MD [address] [facility] [place] [address] Referring Ophthalmology 07/23/23 Porfirio Carreon [address] [facility] [place] [phone] Referring Orthopedics 02/10/24 [place] [address] [place] [address] Cuff Setter [employer] Cardiology 08/03/24 Curator [employer] Relationship Specialty Start Date End Date Chema Perry MD [address] [place], [place] [address] PCP - General Internal Medicine 04/11/22 Stephanie Brush MD [address] [place], [place] 404[address] Referring Ophthalmology 07/23/23 Porfirio Carreon [address] [place] [phone] Referring Orthopedics 02/10/24 [place] [address] [place] [address] Cuff Setter [employer] Cardiology 08/03/24 Curator [employer] Relationship Specialty Start Date End Date Chema Perry MD [address] [place] [address] PCP - General Internal Medicine 04/11/22 Stephanie Brush MD [address] [place], [place] [address]681 Referring Ophthalmology 07/23/23 Porfirio Carreon [address] [place] [phone] Referring Orthopedics 02/10/24 [place] [address] [place] [address] Cuff Setter [employer] Cardiology 08/03/24 Curator [employer] Relationship Specialty Start Date End Date Chema Perry MD [address] [place] [address] PCP - General Internal Medicine 04/11/22 Stephanie Brush MD [address] [place] [address] Referring Ophthalmology 07/23/23 Porfirio Carreon [address] [facility] [place] [phone] Referring Orthopedics 02/10/24 [place] [address] [place] [address] Cuff Setter Lock[employer]ch Cardiology 08/03/24 Curator [employer] Relationship Specialty Start Date End Date Chema Perry MD [address] [place] [address] PCP - General Internal Medicine 04/11/22 Stephanie Brush MD [address]19 [place] [address] Referring Ophthalmology 07/23/23 Porfirio Carreon [address] [phone] Referring Orthopedics 02/10/24 [place] [address] [place] [address] Cuff Setter [employer] Cardiology 08/03/24 Curator [employer] Relationship Specialty Start Date End Date Chema Perry MD [address] [place] [address] PCP - General Internal Medicine 04/11/22 Stephanie Brush MD [address] [place], [place] 6[address] Referring Ophthalmology 07/23/23 Porfirio Carreon [address] [place] [phone] Referring Orthopedics 02/10/24 [place] [address] [place] [address] Cuff Setter [employer] Cardiology 08/03/24 Curator [employer] Relationship Specialty Start Date End Date Chema Perry MD [address] [place], [place] 95[address] PCP - General Internal Medicine 04/11/22 Stephanie Brush MD [address] [place], [place] [address]691 Referring Ophthalmology 07/23/23 Porfirio Carreon [address] [place] [phone] Referring Orthopedics 02/10/24 [place] [address] [place] [address] Cuff Setter [employer] Cardiology 08/03/24 Curator [employer] Relationship Specialty Start Date End Date Chema Perry MD [address] [place] [address] PCP - General Internal Medicine 04/11/22 Stephanie Brush MD [address] [place], [place] 394241 Referring Ophthalmology 07/23/23 Porfirio Carreon [address] [place] [phone] Referring Orthopedics 02/10/24 [place] [address] [place] [address] Cuff Setter [employer] Cardiology 08/03/24 Curator [employer] Relationship Specialty Start Date End Date Chema Perry MD [address] [place], [place] 0[address] PCP - General Internal Medicine 04/11/22 Stephanie Brush MD [address] [place], [place] [address] Referring Ophthalmology 07/23/23 Porfirio Carreon [address] [phone] Referring Orthopedics 02/10/24 [place] [address] [place] [address] Cuff Setter Lock[employer]ch Cardiology 08/03/24 Curator [employer] Relationship Specialty Start Date End Date Chema Perry MD [address] [place] [address] PCP - General Internal Medicine 04/11/22 Stephanie Brush MD [address] [place], [place] 2050[address] Referring Ophthalmology 07/23/23 Porfirio Carreon [address] [place] [phone] Referring Orthopedics 02/10/24 [place] [address] [place] [address] Cuff Setter [employer]ch Cardiology 08/03/24 Curator [employer] Relationship Specialty Start Date End Date Chema Perry MD [address] [place], [place] 420[address] PCP - General Internal Medicine 04/11/22 Stephanie Brush MD [address] [place], [place] 26[address] Referring Ophthalmology 07/23/23 Porfirio Carreon [address] [place] [phone] Referring Orthopedics 02/10/24 [place] [address] [place] [address] Cuff Setter [employer] Cardiology 08/03/24 Curator [employer] Relationship Specialty Start Date End Date Chema Perry MD [address] [place] [address] PCP - General Internal Medicine 04/11/22 Stephanie Brush MD [address]19 [place], [place] [address] Referring Ophthalmology 07/23/23 oPrfirio Carreon [address] [place] [phone] Referring Orthopedics 02/10/24 [place] [address] [place] [address] Cuff Setter Lock[employer]ch Cardiology 08/03/24 Curator [employer] Relationship Specialty Start Date End Date Chema Perry MD [address] [place] [address] PCP - General Internal Medicine 04/11/22 Stephanie Brush MD [address] [place], [place] [address] Referring Ophthalmology 07/23/23 Porfirio Carreon [address] [phone] Referring Orthopedics 02/10/24 [place] [address] [place] [address] Cuff Setter Lockstitch Cardiology 08/03/24 Curator [employer] Relationship Specialty Start Date End Date Chema Perry MD [address] [place] [address] PCP - General Internal Medicine 04/11/22 Stephanie Brush MD [address]19 [place] [address] Referring Ophthalmology 07/23/23 Porfirio Carreon [address] [phone] Referring Orthopedics 02/10/24 [place] [address] [place], [place] [id number] [employer] Cardiology 08/03/24 [employer] Relationship Specialty Start Date End Date Chema Perry MD [address] [place] [address] PCP - General Internal Medicine 04/11/22 Stephanie Brush MD [address] [place], [place] 788951 Referring Ophthalmology 07/23/23 Porfirio Carreon [address] [phone] Referring Orthopedics 02/10/24 [place] [address] [place] [address] [employer] Cardiology 08/03/24 [employer] Relationship Specialty Start Date End Date Chema Perry MD [address] [place], [place] 650031 PCP - General Internal Medicine 04/11/22 Stephanie Brush MD [address] [place] [address] Referring Ophthalmology 07/23/23 Porfirio Carreon [address] [facility] 2 [place] [address] Referring Orthopedics 02/10/24 [place] [address] [place] [address] [employer] Cardiology 08/03/24 [employer] Relationship Specialty Start Date End Date Chema Perry MD [address] [facility], [place] 890661 PCP - General Internal Medicine 04/11/22 Stephanie Brush MD [address]19 [place] [address] Referring Ophthalmology 07/23/23 Porfirio Carreon [address] [facility] [address] [place] [phone] Referring Orthopedics 02/10/24 [place] [address] [place], [place] 0199636 C[employer] Cardiology 08/03/24 [employer] Relationship Specialty Start Date End Date Chema Perry MD [address] [place] [address] PCP - General Internal Medicine 04/11/22 Stephanie Brush MD [address]19 [place] [address] Referring Ophthalmology 07/23/23 Porfirio Carreon [address] [facility] 2 [place] [phone] Referring Orthopedics 02/10/24 [place] [address] [place] [address] C[employer] Cardiology 08/03/24 [employer] Relationship Specialty Start Date End Date Chema Perry MD [address] [place], [place] 742541 PCP - General Internal Medicine 04/11/22 Stephanie Brush MD [address] [facility] [place] [address] Referring Ophthalmology 07/23/23 Porfirio Carreon [address] [facility] 2 [place] [phone] Referring Orthopedics 02/10/24 [place] [address] [place] [address] C[employer] Cardiology 08/03/24 [employer] Relationship Specialty Start Date End Date Chema Perry MD [address] [place] [address] PCP - General Internal Medicine 04/11/22 Stephanie Brush MD [address] [facility] [place] [address] Referring Ophthalmology 07/23/23 Porfirio Carreon [address] [phone] Referring Orthopedics 02/10/24 [place] [address] [place] [address] [employer] Cardiology 08/03/24 [employer]ator [employer] Relationship Specialty Start Date End Date Chema Perry MD [address] [place], [place] 380771 PCP - General Internal Medicine 04/11/22 Stephanie Brush MD [address]19 [place], [place] 353171 Referring Ophthalmology 07/23/23 Porfirio Carreon [address] [facility] [address] [place] [phone] Referring Orthopedics 02/10/24 [place] [address] [place] [address] C[employer] Cardiology 08/03/24 [employer]ator [employer] Relationship Specialty Start Date End Date Chema Perry MD [address] [place], [place] 208771 PCP - General Internal Medicine 04/11/22 10/17/24 Chema Perry MD 1685 [facility] [address] [place], [place] [id number] PCP - General Internal Medicine 10/18/24 Stephanie Brush MD 3519 [place], [place] 927251 Referring Ophthalmology 07/23/23 Porfirio Carreon DO [address] [facility] [address] [place] [phone] Referring Orthopedics 02/10/24 [place] [address] [place], [place] [id number] C[employer] Cardiology 08/03/24 [employer]ator [employer] Relationship Specialty Start Date End Date Chema Perry MD 1685 [facility] [address] [place] [address] PCP - General Internal Medicine 10/18/24 Stephanie Brush MD 3519 [place] [address] Referring Ophthalmology 07/23/23 Porfirio Carreon DO 3373 [facility] 2 [place] [phone] Referring Orthopedics 02/10/24 [place] [address] [place], [place] [id number] C[employer] Cardiology 08/03/24 [employer]ator [employer] Relationship Specialty Start Date End Date Chema Perry MD [address] [address] PCP - General Internal Medicine 10/18/24 Stephanie Brush MD [address]19 [place], [place] 986031 Referring Ophthalmology 07/23/23 Porfirio Carreon DO 3373 [facility] 2 [place] [phone] Referring Orthopedics 02/10/24 [place] [address] [place] [address] C[employer] Cardiology 08/03/24 [employer]ator [employer] Relationship Specialty Start Date End Date Chema Perry MD [address], [place] 3860[address] PCP - General Internal Medicine 10/18/24 Stephanie Brush MD 3519 [place] [address] Referring Ophthalmology 07/23/23 Porfirio Carreon DO [address] [facility] 2 [place] [phone] Referring Orthopedics 02/10/24 [place] [address] [place] [address] C[employer] Cardiology 08/03/24 [employer]ator [employer] Relationship Specialty Start Date End Date Chema Perry MD [address] [address] PCP - General Internal Medicine 10/18/24 Stephanie Brush MD 3519 [place] [address] Referring Ophthalmology 07/23/23 Porfirio Carreon DO [facility] [place] [phone] Referring Orthopedics 02/10/24 [place] [address] [place] [address] C[employer] Cardiology 08/03/24 [employer]ator [employer] Relationship Specialty Start Date End Date Chema Perry MD [address] [address] PCP - General Internal Medicine 10/18/24 Stephanie Brush MD [address]19 [place], [place] 730751 Referring Ophthalmology 07/23/23 Porfirio Carreon DO [address] [facility] [address] [place] [phone] Referring Orthopedics 02/10/24 [place] [address] [place], [place] 4101936 C[employer] Cardiology 08/03/24 [employer]ator [employer] Relationship Specialty Start Date End Date Chema Perry MD [address] 929341 PCP - General Internal Medicine 10/18/24 Stephanie Brush MD [address]19 [place], [place] 291171 Referring Ophthalmology 07/23/23 Porfirio Carreon DO [address] [facility] 2 [place] [phone] Referring Orthopedics 02/10/24 [place] [address] [place] [address] C[employer] Cardiology 08/03/24 [employer]ator [employer] Relationship Specialty Start Date End Date Chema Perry MD [address] [address] PCP - General Internal Medicine 10/18/24 Stephanie Brush MD [address]19 [place], [place] 335941 Referring Ophthalmology 07/23/23 Porfirio Carreon DO [address] [facility] [address] [place] [phone] Referring Orthopedics 02/10/24 [place] [address] [place] [address] C[employer] Cardiology 08/03/24 [employer]ator [employer] Relationship Specialty Start Date End Date Chema Perry MD [address] [address] PCP - General Internal Medicine 10/18/24 Stephanie Brush MD [address]19 [place], [place] 801601 Referring Ophthalmology 07/23/23 Porfirio Carreon DO [address] [facility] [address] [place] [phone] Referring Orthopedics 02/10/24 [place] [address] [place] [address] C[employer] Cardiology 08/03/24 [employer]ator [employer] Relationship Specialty Start Date End Date Chema Perry MD [address] [address] PCP - General Internal Medicine 10/18/24 Stephanie Brush MD 3519 [place] [address] Referring Ophthalmology 07/23/23 Porfirio Carreon DO 3373 [facility] 2 [place] [phone] Referring Orthopedics 02/10/24 [place] [address] [place] [address] [employer] Cardiology 08/03/24 [employer]ator [employer] Relationship Specialty Start Date End Date Chema Perry MD [address] [address] PCP - General Internal Medicine 10/18/24 Stephanie Brush MD [address]19 [place] [address] Referring Ophthalmology 07/23/23 Porfirio Carreon DO [address]373 [facility] 2 [place] [phone] Referring Orthopedics 02/10/24 [place] [address] [place] [address] [employer] Cardiology 08/03/24 [employer]ator [employer] Relationship Specialty Start Date End Date Chema Perry MD [address] [address] PCP - General Internal Medicine 10/18/24 Stephanie Brush MD 3519 [place] [address] Referring Ophthalmology 07/23/23 Porfirio Carreon DO [address] [facility] 2 [place] [phone] Referring Orthopedics 02/10/24 [place] [address] [place] [address] C[employer] Cardiology 08/03/24 [employer]ator [employer] Relationship Specialty Start Date End Date Chema Perry MD 1685 [facility] [address] [place] [address] PCP - General Internal Medicine 10/18/24 Stephanie Brush MD [address]19 [place] [address] Referring Ophthalmology 07/23/23 Porfirio Carreon DO [address] [facility] 2 [place] [phone] Referring Orthopedics 02/10/24 [place] [address] [place] [address] [employer] Cardiology 08/03/24 Team Status: Active Member Role [...] 2024 End: October 22, 2024 Sandra Vincent CAKE PULLER, CAKE PULLER-C Attending Provider Active Start: October 22, 2024 [...] November 09, 2024 End: November 09, 2024 [employer] Relationship Specialty Start Date End Date Chema Perry MD 168 [facility] 101 [place], [place] [address]991 PCP - General Internal Medicine 10/18/24 Stephanie Brush MD [address] [place], [place] 515491 Referring Ophthalmology 07/23/23 Porfirio Carreon DO 3373 [facility] 2 [place] [phone] Referring Orthopedics 02/10/24 [place] [address] [place] [address] C[employer] Cardiology 08/03/24 [employer]ator [employer] Relationship Specialty Start Date End Date Chema Perry MD 1684 [facility] [address] [place] [address] PCP - General Internal Medicine 10/18/24 Stephanie Brush MD [address]19 [place], [place] 149931 Referring Ophthalmology 07/23/23 Porfirio Carreon DO [address] [facility] [address] [place] [phone] Referring Orthopedics 02/10/24 [place] [address] [place], [place] 9156536 C[employer] Cardiology 08/03/24 [employer]ator [employer] Relationship Specialty Start Date End Date Chema Perry MD [address] [address] PCP - General Internal Medicine 10/18/24 Stephanie Brush MD [address]19 [place], [place] 760121 Referring Ophthalmology 07/23/23 Porfirio Carreon DO [address] [facility] [address] [place] [phone] Referring Orthopedics 02/10/24 [place] [address] [place] [address] C[employer] Cardiology 08/03/24 [employer]ator [employer] Relationship Specialty Start Date End Date Chema Perry MD 1685 [facility] [address] [place] [address] PCP - General Internal Medicine 10/18/24 Stephanie Brush MD [address] [place] [address] Referring Ophthalmology 07/23/23 Porfirio Carreon DO [address] [facility] [address] [place] [phone] Referring Orthopedics 02/10/24 [place] [address] [place] [address] C[employer] Cardiology 08/03/24 Team Status: Active Member Role Status Dates Dr. Chema Perry MD Primary Care Provider Active Start: February 01, 2025 Dr. Chema Perry MD Attending Provider Active Start: February 01, 2025 Dr. Chema Perry MD Referring Provider Active Start: February 01, 2025 Team Status: Inactive Member Role Status Dates Dr. Chema Perry MD Primary Care Provider Active Start: February 03, 2025 End: February 03, 2025 Dr. Isma Bustamante DO Emergency Provider Active Start: February 03, 2025 End: February 03, 2025 Goals (unrecognized section and content) Goals may [...] section and content) DATE CREATED AUTHOR 11/01/2024 [facility] DATE CREATED AUTHOR AUTHOR'S ORGANIZ ATION 12/01/2024 [facility] DATE CREATED AUTHOR AUTHOR'S ORGANIZ ATION 01/30/2025 [facility] DATE CREATED AUTHOR AUTHOR'S ORGANIZ ATION 02/04/2025 [facility] FOR RECORDS PERTAINING TO PATIENTS WHO ARE [...] BE BASED ON THE PRIMARY CLINICAL RECORDS. [facility]. provides no warranty or guarantee of the accuracy or completeness of information in this document.
[2025-02-06] MEDS: 0.9% Normal Saline (500mL Bag) 500 ML 1000 ML IV (08:25)
[2025-02-06] MEDS: Ondansetron 4 MG/2 ML Vial IV (08:25)
[2025-02-06] MEDS: Morphine 4 MG/ML Syringe IV (08:25)
[2025-02-06 08:34] LABS: Hematocrit 29.5 % (37-47); Hemoglobin 9.2 g/dL (12.0-15.0); Mean Corp Hgb Conc 31.2 g/dL (32-36); Mean Corpuscular Hgb 28.5 pg (27.0-32.0); Mean Corpuscular Volume 91.3 fL (81-99); Mean Platelet Vol. 10.4 fl (6.2-12.0); Platelet Count 143 K/mm3 (150-450); RBC Distribution Width CV 13.3 % (11.6-14.6); RBC Distribution Width SD 43.9 fl (35.1-43.9); Red Blood Count 3.23 M/mm3 (4.2-5.4); White Blood Count 4.8 K/mm3 (4.4-11.0)
[2025-02-06 09:42] LABS: ALB/GLOB Ratio 1.2 RATIO (0.9-2.4); AST(SGOT) 24 U/L (<=31); Alanine Aminotransfer ALT/SGPT 14 U/L (<=34); Albumin, Serum 3.3 g/dL (3.4-4.8); Alkaline Phosphatase 98 U/L (35-104); Anion Gap 9 (5-15); BUN 16 mg/dL (4-19); BUN/Creat Ratio 18.3 RATIO (10-20); Calcium,Total 8.7 mg/dL (7.6-11.0); Carbon Dioxide 27.4 mmol/L (21.0-32.0); Chloride 101 mmol/L (98-108); Creatinine, Serum 0.88 mg/dL (0.70-1.20); EST Glomerular Filtration Rate 66 (>60); Globulin 2.8 g/dL (2.2-4.2); Glucose 107 mg/dL (70-99); Protein, Total 6.2 g/dL (5.9-8.4); Sodium Level 137 mmol/L (133-145); Total Bilirubin 0.54 mg/dL (0.00-1.30)
--- NOTE | 2025-02-06 10:40 | CONS.ORTHO ---
HPI Consult Data Date of Consult: 02/06/25 HPI Narrative HPI Narrative: SHELDON ALAN, is a 84 F who presents with failure to cope and pain related to a distal clavicle fracture. [facility] Medical History Leg edema Open wound of right lower extremity Contusion of right foot Kyphoscoliosis deformity of spine Bee sting Lumbar contusion Contusion of thoracic wall Pain of left lower extremity Contact with and (suspected) exposure to other viral communicable diseases Contusion of left wrist Left elbow contusion Contusion of left shoulder Scalp contusion Injury of left elbow Injury of left shoulder Presence of stent in coronary artery (~1989) Atherosclerotic heart disease of [place] coronary artery without angina pectoris Essential hypertension Influenza A Health care maintenance Falls frequently Cancer Depression Dementia Walker as ambulation aid Arthritis Bladder disease Low iron DVT (deep venous thrombosis) High cholesterol Restless legs Back pain TIA (transient ischemic attack) Seizures Difficulty swallowing Gastric reflux Non-smoker Asthma Shortness of breath on exertion Hx of echocardiogram History of stress test Hypertension Cardiology follow-up encounter History of heart attack Hypertension aquired autoimmune encephalopathy h/o back surgery Heart disease Dementia Partial complex seizures Home Medications ?Medication ?Instructions ?Recorded ?Last Taken ?Type L.acidophil-L.casei-B.bifid-B.longum-FOS 1 cap PO DAILY Supplement 09/02/21 10/05/21 History 2 billion cell-50 mg capsule (Probiotic Blend) aspirin 81 mg tablet,delayed 81 mg PO DAILY 01/10/22 Unknown History release (Adult Aspirin Regimen) d-mannose 500 mg capsule 500 mg PO DAILY 06/07/22 Unknown History famotidine 10 mg tablet 10 mg PO BID 06/07/22 Unknown History multivitamin 1 tab PO DAILY 06/07/22 Unknown History mirabegron 50 mg tablet,extended 50 mg PO QHS Check with primary 01/29/23 Unknown History release 24 hr (Myrbetriq) doctor albuterol sulfate 2.5 mg/3 mL 2.5 mg (3 mL) inhalation Q6H PRN 04/07/23 Unknown Rx (0.083 %) solution for nebulization Sob &/Or Wheezing #180 mL syringes BD ECLIPSE 04/11/23 Unknown History latanoprost 0.005 % eye drops 1 drp ophthalmic (eye) DAILY 08/13/23 Unknown History (Xalatan) donepezil 5 mg tablet (Aricept) 10 mg (2 x 5 mg) PO DAILY #90 tabs 11/12/23 Unknown Rx nitroglycerin 0.4 mg sublingual 0.4 mg sublingual Q5-15M PRN chest 11/12/23 Unknown Rx tablet pain #25 tabs BD Sry/needle eclips See Rx Instructions IM .COMPLEX 02/23/24 Unknown Rx #12 ea azelastine 137 mcg (0.1 %) nasal 2 spray intranasal BID 03/16/24 Unknown History spray cetirizine 10 mg capsule (Zyrtec) 10 mg PO DAILY PRN allergy symptoms 03/16/24 Unknown History fluticasone propionate 50 1 spray intranasal DAILY 03/16/24 Unknown History mcg/actuation nasal spray,suspension (Allergy Relief (fluticasone)) PEP device #1 ea 04/06/24 Unknown Rx apixaban 5 mg tablet (Eliquis) 5 mg PO BID #180 tabs 06/08/24 Unknown Rx atorvastatin 40 mg tablet See Rx Instructions .Route 06/08/24 Unknown Rx .COMPLEX #90 tabs levothyroxine 50 mcg tablet 50 mcg PO DAILY Thyroid #90 tabs 06/08/24 Unknown Rx memantine 10 mg tablet 10 mg PO BID Alzheimer's #180 tabs 06/08/24 Unknown Rx pramipexole 0.5 mg tablet 0.5 mg PO BID #180 tabs 06/08/24 Unknown Rx vortioxetine 20 mg tablet 20 mg PO DAILY DEPRESSION #90 tabs 06/08/24 Unknown Rx (Trintellix) brimonidine 0.2 % eye drops drp ophthalmic (eye) QHS 10/14/24 Unknown History olopatadine 0.6 % nasal spray 2 spray intranasal DAILY 10/14/24 Unknown History pantoprazole 40 mg tablet,delayed 40 mg PO DAILY 10/14/24 Unknown History release potassium chloride 20 mEq 20 meq PO DAILY 10/14/24 Unknown History tablet,extended release(part/cryst) (Klor-Con M) furosemide 20 mg tablet 10 mg (1/2 x 20 mg) PO DAILY PRN 11/23/24 Unknown Rx edema #30 tabs lacosamide 100 mg tablet (Vimpat) 100 mg PO BID #180 tabs 12/20/24 Unknown Rx cyanocobalamin (vitamin B-12) 1,000 mcg IM QMONTH #10 mL 01/24/25 Unknown Rx 1,000 mcg/mL injection solution denosumab 60 mg/mL subcutaneous 60 mg subcut [id number] #1 mL 01/24/25 Unknown Rx syringe (Prolia) diazepam 2 mg tablet (Valium) 2 mg PO TID PRN Muscle pain/spasm 02/03/25 Unknown Rx 5 days #15 tabs gabapentin 100 mg capsule 300 mg PO QHS restless leg(s) 02/03/25 Unknown History hydromorphone 2 mg tablet 2 mg PO Q6H PRN pain 5 days #20 02/03/25 Unknown Rx (Dilaudid) tabs Allergy/AdvReac Type Severity Reaction Status Date / Time doxycycline Allergy Mild Vomiting Verified 02/06/25 07:30 acetaminophen (From Allergy Other Verified 02/06/25 07:30 Darvocet-N) lamotrigine (From Lamictal) Allergy Lip Verified 02/06/25 07:30 Swelling moxifloxacin HCl (From Allergy Other Verified 02/06/25 07:30 Avelox) propoxyphene napsylate (From Allergy Other Verified 02/06/25 07:30 Darvocet-N) hydrocodone AdvReac Severe Confusion Verified 02/06/25 07:30 oxycodone (From Percocet) AdvReac Severe Confusion Verified 02/06/25 07:30 zolpidem tartrate (From AdvReac Other Verified 02/06/25 07:30 Ambien) Family History (Reviewed 10/22/24 @ 14:32 by Sandra Vincent [address] [facility] MAGISTRATE, [facility] [facility] MAGISTRATE-C) Mother CVA (cerebral vascular accident) Arthritis Father Myocardial infarction, Onset Age: 40 Alcoholism Hypertension Sister Anemia Grandmother Bowel disease Osteoporosis Ovarian cancer Surgical History History of repair of hiatal hernia History of cholecystectomy History of hernia surgery Presence of coronary angioplasty implant and graft (~1989) History of hammer toe correction History of lumbar laminectomy History of carpal tunnel release History of tonsillectomy and adenoidectomy History of lumpectomy of left breast History of cardiac catheterization History of esophagogastroduodenoscopy (EGD) Hx of colonoscopy Hx of ventral hernia repair Hx of cataract extraction History of laryngoscopy History of appendectomy H/O kyphoplasty Social History household members: spouse housing: house Smoking Status: Never smoker alcohol intake: current alcohol intake frequency: a few times a week Alcohol type: wine substance use type: does not use caffeine: Yes Type: coffee Number of servings: 1 what type of physical activity do you participate in: other details: PT 3x weekly frequency: 3-4 times per week do you feel safe at home: Yes Vital Signs Vital Signs Vital Signs: 02/06/25 07:30 Temperature 98.6 F Temperature Source Oral Pulse Rate 74 Respiratory Rate 18 Blood Pressure 119/80 Blood Pressure Mean 93 Pulse Ox 98 Oxygen Delivery Method Room Air Weight Weight: 109 lb 12.643 oz Body Mass Index (BMI) 25.4 Lab / Micro Data 02/06/25 08:22 02/06/25 08:22 Labs: Laboratory Results - last 24 hr 02/06/25 08:22: WBC 4.8, RBC 3.23 L, Hgb 9.2 L, Hct 29.5 L, MCV 91.3, MCH 28.5, MCHC 31.2 L, RDW Std Deviation 43.9, RDW Coeff of Jorge 13.3, Plt Count 143 L, MPV 10.4, Sodium 137, Potassium 4.0, Chloride 101, Carbon Dioxide 27.4, Anion Gap 9, BUN 16, Creatinine 0.88, Estim Creat Clear Calc 35.40 L, Est GFR (MDRD) Non-Af 66, BUN/Creatinine Ratio 18.3, Glucose 107 H, Calcium 8.7, Total Bilirubin 0.54, AST 24, ALT 14, Alkaline Phosphatase 98, Total Protein 6.2, Albumin 3.3 L, Globulin 2.8, Albumin/Globulin Ratio 1.2 Imaging Radiology Impression Clavicle X-Ray 02/06/25 07:53 IMPRESSION: No obvious change in the known acute, displaced right distal clavicular fracture. Reading Location: [facility] Humerus X-Ray 02/06/25 07:53 IMPRESSION: NO ACUTE FRACTURE OR DISLOCATION. Reading Location: [id number] Assessment & Plan Assessment/Plan (1) Closed fracture of right clavicle: PLAN: 84 F with right shoulder pain, failure to cope / need for pain management, closed injury per ED provider, no threatening of the skin. Happened 3 days ago. Reviewed the images and CT scan. Type 1 distal clavicle fracture, but also looks like asx disruption of CC ligaments with space increased to 20mm on the CT. Preferred option here despite unstable nature of the fracture given the patients age, functional demands, and medical hx including being on apixaban would be non operative with pain control and sling. Typically type 1 distal clavicle heals with non op mgt, but with the large fracture gap and disruption of the CC ligaments most likely would create longterm pain and disability. That being said, surgery still has risks because of her medical issues. Surgery would be in the form of CC ligament reconstruction with allograft (tib ant or semi T) and hook plate to protect. This has downsides as well. Possible infection due to the allograft, large nature of the surgery - 2 hour case, dependence on bone quality of the coracoid and especially the acromion (fracture, cuff injury) with the hook plate and need for a second surgery to remove the hook plate. Weighing the pros and cons, overall my recommednation here would be non operative care, but OK to admit the patient for pain control and I can speak to them about the options within the next couple days.
[2025-02-06] MEDS: Ketorolac 30 MG/ML Syringe IV (10:54)
[2025-02-06 10:58] VITALS: BP 110/76; PULSE 71; RESP 18; TEMP 37.1; O2SAT 99
--- OUTSIDE RECORDS SUMMARY | 2025-02-06 11:05 | XMS RPT_ITS | CCD ---
Author Organization [facility] CliniSywa Care Team Providers Care Diazo Technician Name Role Phone Parvin COHEN, Bryant Sandoval Primary Care Provider [phone] Richard, Dr. Arun Muller Primary Care Provider Richard, Dr. Arun Muller Referring Provider Melisa SALES AND LEASING CONSULTANT, SALES AND LEASING CONSULTANT-C Sandra Attending Provider [phone] Dr. Kinza Laughlin Emergency Provider Dr. Luh Sosa Attending Provider Unavailable Dr. Luh Sosa Admit Provider Unavailable Dr. Jean Claude Macedo Attending Provider Dr. Jean Claude Macedo Other Provider Dr. Vincent Morris Emergency Provider Dr. Jean Claude Macedo Admit Provider Dr. Demetrius Duffy Attending Provider Dr. Demetrius Duffy Other Provider Dr. Malachi Caal Attending Provider [phone] Richard, Dr. Arun Muller Primary Care Provider Richard, Dr. Arun Muller Referring Provider Melisa SALES AND LEASING CONSULTANT, SALES AND LEASING CONSULTANT-C Sandra Attending Provider Richard, Dr. Arun Muller Primary Care Provider Richard, Dr. Arun Muller Referring Provider Dr. Malachi Caal Attending Provider Melisa SALES AND LEASING CONSULTANT, SALES AND LEASING CONSULTANT-C Sandra Referring Provider [phone] Chema Perry MD Primary Care Provider [phone] Dr. Arun Ramos Chi Primary Care Provider Charity Dove Attending Provider Unavailable Dr. Chema Perry Attending Provider [phone] Dr. Arun Ramos Chi Referring Provider Dr. Malachi Caal Attending Provider Dr. Chema Perry Primary Care Provider Dr. Chema Perry Referring Provider [phone] Dr. James Elizabeth Attending Provider Melisa BROWN, BURAK lFores Attending Provider Adrian VALENCIA, [place] Phillip Attending Provider Forrest Ortiz Attending Provider Unavailable Dr. Chema Perry Attending Provider 1([facility]) Dr. Rolando Griffith Attending Provider 1([facility])[phone] Sarbjit Kraus Attending Provider Dr. Chema Perry Primary Care Provider Dr. Chema Perry Primary Care Provider Dr. Chema Perry Attending Provider [phone] Lashonda VALENCIA, ERIK Vaughan Attending Provider Dr. Chema Perry Primary Care Provider Dr. Chema Perry Referring Provider 1([facility]) Chema Perry MD Primary Care Provider [phone] Dr. Chema Perry Primary Care Provider Dr. Cehma Perry Referring Provider 1([facility])347 Lashonda VALENCIA PA Jd Vaughan Attending [...] Provider Dr. Chema Perry Attending Provider Melisa SALES AND LEASING CONSULTANT, SALES AND LEASING CONSULTANT-C Sandra Attending Provider Dr. Chema Perry Primary Care Provider Dr. Chema Perry Attending Provider Dr. Chema Perry Referring Provider ERIK Alonso Attending Provider ERIK Jamison Attending Provider Dr. Rolando Griffith Attending Provider ERIK Alonso Attending Provider Roseann VALENCIA, PA Jerri Vaughan Referring Provider Dr. Chema Perry Primary Care Provider Dr. Chema Perry Referring Provider Lashonda VALENCIA PA Jd Vaughan Attending Provider Melisa BROWN, SALES AND LEASING CONSULTANT-C Sandra Attending Provider Roseann VALENCIA, PA Jerri [...] Dr. Malachi Caal Attending Provider Kings BROWN, SALES AND LEASING CONSULTANT-C Tamiko Attending Provider Dr. Chema Perry Primary Care Provider Dr. Chema Perry Attending Provider Dr. Vincent Smart Attending Provider Chema Perry MD Primary Care Provider [phone] Porfirio Carreon Unavailable Stephanie Brush MD Unavailable [...] Dr. Susan Emery DO Attending Provider [phone] Dr. Susan Emery DO Emergency Provider Melisa [...] Care Unavailable ZLESLIEI, LAISHA Referring Unavailable CHACECHEMA SAUL M Primary Care Unavailable ZGODINSKI, LAISHA Referring [...] CHEMA M Primary Care Unavailable [facility] Attending Unavailable CHACE, CHEMA M Primary Care Unavailable DUNG, QARAB Referring Unavailable CHACE, CHEMA M Primary Care Unavailable [facility], ANILA Referring Unavailable DUNG, QARAB Attending Unavailable CHACE, CHEMA M Primary Care Unavailable [facility], [facility]ILA Referring Unavailable CHACE, CHEMA M Primary Care Unavailable [facility], [facility] Referring Unavailable [facility], [facility] Admitting Unavailable [facility] Attending Unavailable CHACE, CHEMA M Primary Care Unavailable [facility] Referring Unavailable CHACE, CHEMA M Primary Care [...] CHEMA M Primary Care Unavailable [facility] Attending Unavailable SUSAN SQUIRES Referring Unavailable CHACE, [...] COHEN, Dr. Bear Primary Care Provider [phone] Dr. Isma Bustamante DO Emergency Provider Chace, [...] Unavailable Sandra Vincent NP Referring Unavailable Susan Eemry Attending Unavailable Chace, Chema Primary Care Unavailable [...] Unavailable Chace, Chema Primary Care Unavailable Malachi Cala Attending Unavailable Malachi Caal Referring Unavailable Chace, Chema Primary Care Unavailable Chace, Chema Primary Care Unavailable Chace, Chema Attending Unavailable Nacho, [place] Attending Unavailable Chace, Chema Attending Unavailable Chace, Chema Primary Care Unavailable Chace, Chema Referring Unavailable Melisa BROWN, Sandra Attending Unavailable Chace, Chema Primary Care Unavailable Chace, Chema Attending Unavailable Chace, Chema Primary Care Unavailable BorrusoChristopher Attending Unavailable Chace, Chema Primary Care Unavailable Ancho, Rolando Attending Unavailable Chace, Chema Primary Care Unavailable Chace, Chema Attending Unavailable Chace, Chema Primary Care Unavailable Chace, Chema Referring Unavailable Borruso, Christopher Attending Unavailable Chace, Chema Primary Care Unavailable Borruso, Christopher Attending Unavailable Chace, Chema Referring Unavailable Nacho, [place] Attending Unavailable Chace, Chema Primary Care Unavailable Syed Leonard Attending Unavailable Chace, Chema Referring Unavailable Borruso, Christopher Attending Unavailable Chace, Chema Primary Care Unavailable Chace, Chema Attending Unavailable Chace, Chema Primary Care Unavailable Chace, Chema Referring Unavailable Chace, Chema Primary Care Unavailable Melisa BROWN, Sandra Attending Unavailable Chace, Chema Referring Unavailable Chace, Chema Primary Care Unavailable Jerri Jamiosn Attending Unavail able Chace, Chema Referring Unavailable Chace, Chema Attending Unavailable Chace, Chema Primary Care Unavailable Allergies Allergy Classification Reported Allergen(s) Allergy Type Date of Onset Reaction(s) Facility Acetaminophen / oxyCODONE (1 source) Acetaminophen / oxyCODONE Drug Allergy 08-09-20 20 Mental Status Change [facility] Anti-Epileptic Agents (1 source) lamoTRIgine Drug Allergy 08-09-20 20 Swelling [facility] Doxycycline (1 source) Doxycycline Drug Allergy 08-09-20 Vomiting [facility] Latex (1 source) Latex Substance Allergy 02-15-20 Rash [facility] NSAIDs (1 source) Diclofenac Drug Allergy 07-17-20 15 Other: See Comments [facility] Opioid Agonists (2 sources) oxyCODONE Drug Allergy 11-08-19 Mental Status Change, Other: See Comments [facility] Quinolones (antibiotic) (1 source) moxifloxacin Drug Allergy 08-09-20 Mental Status Change [facility] zolpidem (1 source) zolpidem Drug Allergy 08-09-20 Mental Status Change [facility] (20 sources) Acetaminophen / oxyCODONE; Translations: [OXYCODONE-ACETAMIN OPHEN] Drug Allergy 08-09-20 Mental Status Change [facility] (20 sources) Adhesive agent; Translations: [ADHESIVE] Drug Allergy 02-24-20 Other: See Comments [facility] (20 sources) Diclofenac; Translations: [DICLOFENAC SODIUM] Drug Allergy 07-17-20 Other: See Comments [facility] (4 sources) diphenhydrAMINE Drug Allergy 05-20-20 16 Unknown, Other: See Comments [facility] (20 sources) Doxycycline; Translations: [DOXYCYCLINE] Drug Allergy 08-09-20 Vomiting [facility] (20 sources) lamoTRIgine; Translations: [LAMOTRIGINE] Drug Allergy 08-09-20 Swelling [facility] (20 sources) Latex; Translations: [LATEX] Drug Allergy 02-15-20 Rash [facility] (20 sources) moxifloxacin; Translations: [MOXIFLOXACIN] Drug Allergy 08-09-20 Mental Status Change [facility] (20 sources) oxyCODONE; Translations: [OXYCODONE] Drug Allergy 06-28-20 Mental Status Change [facility] Comment on above: Nightmares, Suicidal Ideation (20 sources) Propoxyphene; Translations: [PROPOXYPHENE] Drug Allergy 11-08-19 Mental Status Change, Other: See Comments [facility] (20 sources) zolpidem; Translations: [ZOLPIDEM] Drug Allergy 08-09-20 Mental Status Change [facility] (20 sources) Adhesive Tape-Silicones; Translations: [ADHESIVE TAPE-SILICONES] Drug Allergy 02-24-20 Unknown [facility] (20 sources) Propoxyphene N-Acetaminophen; Translations: [PROPOXYPHENE N-ACETAMINOPHEN] Drug Allergy 02-09-20 Other: See Comments [facility] (20 sources) Acetaminophen Drug Allergy 11-08-19 Other [facility] (20 sources) moxifloxacin; Translations: [moxifloxacin HCl] Drug Allergy 11-08-19 Other [facility] (20 sources) Propoxyphene; Translations: [propoxyphene napsylate] Drug Allergy 11-08-19 Other [facility] (20 sources) zolpidem; Translations: [zolpidem tartrate] Drug Allergy 11-08-19 Other [facility] (20 sources) Adhesive agent Drug Allergy 02-24-20 Other: See Comments [facility] (4 sources) HYDROcodone Drug Allergy 10-23-19 [facility] Comment on above: Nightmares, Suicidal Ideation (1 source) Acetaminophen Drug Allergy 02-04-20 [facility] Repository (1 source) Doxycycline Drug Allergy 02-04-20 25 [facility] Repository (1 source) HYDROcodone Drug Allergy 02-04-20 [facility] Repository (1 source) lamoTRIgine Drug Allergy 02-04-20 [facility] Repository (1 source) Latex Drug allergy (disorder) 09-18-19 25 [facility] Repository (1 source) oxyCODONE Drug Allergy 02-04-20 [facility] Medications Current Medications Medication Drug [...] 1,000 mcg intramuscularly once every month. Vitamin C-62-rkkrqatdjhxqer 07/19/2022 Suspended Start: 07-19-2022 inject 1000 ug by in tramuscular injection every month DODEX 1,000 mcg/mL Inject 1,000 mcg intramuscularly once every month. Vitamin M-63-kmpyzqnigfkgbb 07/19/2022 Active Start: 07-19-2022 DODEX 1,000 mc [...] FLUTICASONE,) 50 mcg/actuation nasal spray Use 1 [place] in each nostril once daily. 09/14/2024 Discontinued [...] 12 % lotion 06/13/2022 Active lactobacillus acidophilus [id number] unt oral capsule (20 sources) Start: 03-27-2021 [...] syringes BD EC LIPSE Active 0 .Route .[facility] April 11, 2023 12:00am Bd SYR/leticia Eclipse 3ml #5782 Start: 04-11-2023 syringes BD EC LIPSE Active 0 .Route .[facility] April 10, 2023 11:00pm Bd SYR/leticia Eclipse 3ml #5782 Start: 04-11-2023 syringes BD EC LIPSE Active 0 .ROUTE .[facility] April 10, 2023 11:00pm Bd SYR/leticia Eclipse 3ml #5782 Start: 04-11-2023 syringes BD EC LIPSE Active 0 .ROUTE .[facility] April 11, 2023 12:00am Bd SYR/leticia [...] 24, 2025 10:45am Can be administered at [facility] Start: 09-18-2023 End: 06-05-2024 Cyanocobalamin (Vitamin B-12 [...] System Stimulant, Methylxanthine Start: 02-15-2022 End: 04-25-2022 Mhxbcwrnnwape-Tnat-Dzjugwkut e (Midol Complete) 500-60-15 mg Tablet Discontinued {tbl} February 15, 2022 12:00am April 25, 2022 11:40am acetaminophen 500 mg / pamabrom 25 mg / pyrilamine maleate 15 mg oral tablet (20 sources) Start: 02-15-2022 End: 04-25-2022 Hwprblhukwdpm-Amiefrey-Iwcii am (Pamprin Multi-Symptom) 500-25-15 mg Tablet Discontinued [...] D3) 50 mcg (2,000 unit) capsule Discontinued 35148 U PO EVERY MONTH August 02, 2020 [...] 24, 2025 10:45am Can be administered at [facility] [place] Start: 04-01-2024 inject 1000 ug by in tramuscular injection every month Cyanocobalamin (Vitamin B-12) 1,000 mcg/mL solution Active 1000 ug IM EVERY MONTH April 01, 2024 12:00am Can be administered at [facility] [place] D marlo (20 sources) Start: 03-20-2022 End: [...] Take by mouth as nee ded. Ipratropium [place] 42 mcg (0.06 %) spray,non-aerosol (4 sources) Start: 10-08-2023 End: 03-16-2024 Ipratropium [place] 42 mcg (0.06 %) spray,non-aerosol Discontinued 2 [...] Comment on above: Take 1 tablet by [facility] one time only for 1 dose. Please [...] hydrochloride 10 mg oral tablet (20 sources) M-sczdol-A-aspartat e Receptor Antagonist Start : 04-10 End: [...] Coronary atherosclerosis; Translations: [Atherosclerotic heart disease of [place] coronary artery without angina pectoris] Onset: 1 [...] sources) Long-term current use of anticoagulant; Translations: [intermission coordinator (current) use of anticoagulants] 03-23-2022 Episodic Other aftercare (20 sources) Surgical follow-up; Translations: [Encounter for removal of sutures] 07-24-2022 Episodic Other aftercare (4 sources) Encounter for removal of sutures; Translations: [Encounter for removal of sutures] Episodic Other aftercare (4 sources) Drug therapy finding; Translations: [longterm (current) use of anticoagulants] 06-15-2024 Episodic Other [...] Department Summary on 02-03-2025 Emergency Department Summary [facility] Medical Records Department [address] [place] [address] Emergency Department Summary 02/03/25 MR#: [id number] Acct: [id number] Name: LAUREN ALCARAZ Rep #: [id number] : 1940 84 From: Isma Bustamante DO PCP: Dr. Chema ePrry MD Status:REG ER Location: ED HPI History [...] for evaluation. She denies any other injury [facility] Medical History (Updated 02/03/25 @ 07:58 by [...] artery ( 1989) Atherosclerotic heart disease of [place] coronary artery without angina pectoris Essential hypertension [...] Sob /Or Wheezing #180 mL syringes BD BravoSolution 04/11/23 Unknown History latanoprost 0.005 % eye [...] 10/14/24 Unknown (more content not included)... Normal [facility] Extremity Upper without Cont raon 02-03-2025 Extremity Upper without Contra [facility] [address] [place] [address] Extremity Upper without Contra MR#: [id number] Acct: [id number] Name: LAUREN ALCARAZ Rep #: [id number] : 1940 F 84 From: Izzy cabrera MD PCP: Dr. Chema Perry MD Status: REG ER Study: Extremity Upper without Contra Date of Exam: 0 02/03/25 Exam# [id number] Ordering Dr: Isma Bustamante DO PROCEDURE: EXTREMITY [...] changes of the humeral head. Reading Location: [place] [address] CC: Dr. Chema Perry MD; Isma Bustamante DO Scallop Shucker: Signed Normal [facility] Shoulder min 2 Viewson 02-03 Shoulder min 2 Views [facility] [address] [place] [address] Shoulder min 2 Views MR#: [id number] Acct: [id number] Name: LAUREN ALCARAZ Rep #: [id number] : 1940 F 84 From: Izzy cabrera MD PCP: Dr. Chema Perry MD Status: REG ER Study: Shoulder min 2 Views Date of Exam: 02/03/25 Exam# [id number] Ordering Dr: Isma Bustamante DO PROCEDURE: SHOULDER [...] changes of the humeral head. Reading Location: [place] [address] CC: Dr. Chema Perry MD; Isma Bustamante DO Scallop Shucker: Signed Normal [facility] Inital Evaluation (1) - PTon 01-12-2025 Inital Evaluation (1) - PT [facility] Physical Therapy Health[address] [place] [address] / REHABILITATION SERVICES INITIAL EVALUATION MR#: [id number] Acct: [id number] Name: LAUREN ALCARAZ Rep #: [id number] : 1940 84 From: Gunnar Graves PT, ATC Referring Dr.: Dr. Chema Perry MD Status: R EG RCR Insurance: MEDICARE PART A B R [id number] [id number] Patient's Visit Information Visit Information Visit Information: [...] Pt reports she has had PT at [facility] and with home health at home which [...] to be FAXED BACK to us at [phone] for Medicare purposes. For Medicare only, by signing this I certify the plan of care. Please let me know if there are questions or concerns regarding this plan of care. Physician Signature: Date: 01/12/25 1506 CC: Dr. Chema Perry MD [facility] Signed Normal [facility] Inital Evaluation (1) - PT [facility] Physical Therapy Health[address] [place] [address] / REHABILITATION SERVICES INITIAL EVALUATION MR#: [id number] Acct: [id number] Name: LAUREN ALCARAZ Rep #: [id number] : 1940 84 From: Gunnar Graves PT, ATC Referring Dr.: Dr. Chema Perry MD Status: R EG RCR Insurance: MEDICARE PART A B U[id number] [id number] Patient's Visit Information Visit Information Visit Information: [...] Pt reports she has had PT at [facility] and with home health at home which [...] to be FAXED BACK to us at [phone] for Medicare purposes. For Medicare only, by signing this I certify the plan of care. Please let me know if there are questions or concerns regarding this plan of care. Physician Signature: Date: 01/12/25 1505 CC: Dr. Chema Perry MD [facility] Signed [facility] CNOVon 12-23-2024 CNOV [facility] CNOVon 12-20-2024 CNOV [facility] CNOVon 12-19-2024 CNOV [facility] CNOVon 12-09-2024 CNOV [facility]-03-[address] [facility]THER[facility]on 11-26-2024 CNTHERAPY OT/PT/Speech Visit ( [facility]) LAUREN ALCARAZ ([id number]) 1940 F Date Time Provider Department 11/26/24 4:[address] [facility] Date Time Provider Department [place] 11/26/2024 4:15 PM [id number], DIANDRA [facility] Reason for Visit: [...] 1,000 mcg intramuscularly once every month. Vitamin E-42-krkktfyasxsocs - ammonium lactate (LAC-HYDRIN) 12 % lotion [...] every 6 months. Last injection November 2020 [facility] CNTHERAPYon 11-19-2024 CNTHERAPY [facility] ( [facility] LAUREN ALCARAZ ([id number]) 1940 F Date Time Provider Department 11/19/24 4:[address] [facility] Date Time Provider Department [place] 11/19/2024 4:15 PM [id number], DIANDRA [facility] Reason for Visit: Occupational Therapy [504] Primary [...] 1,000 mcg intramuscularly once every month. Vitamin N-92-hemivfhqjylimn - ammonium lactate (LAC-HYDRIN) 12 % lotion [...] 6 months. Last injection November 2020 Normal [facility] CASE MANAGEMon 11-17-2024 CASE MANAGEM Normal [facility] CASE MANAGEM Normal [facility] CNDSon 11-17-2024 CNDS Normal [facility] ANES POSTPROC EVALon 025 ANES POSTPROC EVAL Normal [facility] ANES PRE-OPon 11-16-2024 ANES PRE-OP Normal [facility] CASE MGT INIT ASSESon 2024 CASE MGT INIT ASSES Normal [facility] CBC panel Auto (Bld)on 11-16 Erythrocyte distribution width (RBC) [Ratio] 13.7 % Normal 11.5-15.0 [facility] Comment on above: Order Comment: Speci men Type: BLOOD SPECIMENOrdering Facility: [facility] Address: [address] [place] [address] Performed By: #### 5 8410-2 ####[facility] LABCLIA [id number] [place] [address] [place] Hematocrit (Bld) [Volume fraction] 36.3 % Normal 36.0-46.0 [facility] Comment on above: Order Comment: Speci men Type: BLOOD SPECIMENOrdering Facility: [facility] Address: [address] [place] [address] Performed By: #### 5 8410-2 ####[facility] LABIA [id number] [place] [address] [place] Hemoglobin (Bld) [Mass/Vol] 11.6 g/dL Normal 11.5-15.5 [facility] Comment on above: Order Comment: Speci men Type: BLOOD SPECIMENOrdering Facility: [facility] Address: [address] [place] [address] Performed By: #### 5 8410-2 ####[facility] [id number] [place] [address] [place] MCH (RBC) [Entitic mass] 29.5 pg Normal 26.0-34.0 [facility] Comment on above: Order Comment: Speci men Type: BLOOD SPECIMENOrdering Facility: [facility] Address: [address] [place] [address] Performed By: #### 5 8410-2 ####[facility] [id number] [place] [address] [place] MCHC (RBC) [Mass/Vol] 32.0 g/dL Normal 30.5-36.0 [facility] Comment on above: Order Comment: Speci men Type: BLOOD SPECIMENOrdering Facility: [facility] Address: [address] [place] [address] Performed By: #### 5 8410-2 ####[facility] [id number] [place] [address] [place] MCV (RBC) [Entitic vol] 92.4 fL Normal 80.0-100.0 [facility] Comment on above: Order Comment: Speci men Type: BLOOD SPECIMENOrdering Facility: [facility] Address: [address] [place] [address] Performed By: #### 5 8410-2 ####[facility] LABCLIA [id number] [place] [address] [place] Nucleated RBC (Bld) [#/Vol] 10*3/uL Normal <0.01 [facility] Comment on above: Order Comment: Speci men Type: BLOOD SPECIMENOrdering Facility: [facility] Address: [address] [place] [address] Performed By: #### 5 8410-2 ####[facility] LABIA [id number] [address], [place] [address] [place] Platelet mean volume (Bld) [Entitic vol] 10.9 fL Normal 9.0-12.7 [facility] Comment on above: Order Comment: Speci men Type: BLOOD SPECIMENOrdering Facility: [facility] Address: [address] [place] [address] Performed By: #### 5 8410-2 ####[facility] LABIA [id number] [place] [id number] [place] Platelets (Bld) [#/Vol] 171 10*3/uL Normal 150-400 [facility] Comment on above: Order Comment: Speci men Type: BLOOD SPECIMENOrdering Facility: [facility] Address: [address] [place] [address] Performed By: #### 5 8410-2 ####[facility] LABCLIA [id number] [place] [id number] [place] RBC (Bld) [#/Vol] 3.93 10*6/uL Normal 3.90-5.20 [facility] Comment on above: Order Comment: Speci men Type: BLOOD SPECIMENOrdering Facility: [facility] Address: [address] [place] [address] Performed By: #### 5 8410-2 ####[facility] LABCLIA [id number] [address] [place] [address] [place] WBC (Bld) [#/Vol] 4.86 10*3/uL Normal 3.70-11.00 [facility] Comment on above: Order Comment: Speci men Type: BLOOD SPECIMENOrdering Facility: [facility] Address: [address] [place] [address] Performed By: #### 5 8410-2 ####[facility] LABCLIA [id number] [address], [place] [address] [place] Comprehensive metabolic 2000 panelon 11-16-2024 Albumin [Mass/Vol] 3.4 g/dL Low 3.9-4.9 [facility] Comment on above: Order Comment: Speci men Type: BLOOD SPECIMENOrdering Facility: [facility] Address: [address] [place] [address] Performed By: #### 2 4323-8, 2777, ####[facility] LABCLIA [id number] [place] [id number] [place] ALP [Catalytic activity/Vol] 148 U/L High 34-123 [facility] Comment on above: Order Comment: Speci men Type: BLOOD SPECIMENOrdering Facility: [facility] Address: [address] [place] [address] Performed By: #### 2 4323-8, 2777-1, ####[facility] LABCLIA [id number] [address], [facility]95 [place] ALT [Catalytic activity/Vol] 27 U/L Normal 7-38 [facility] Comment on above: Order Comment: Speci men Type: BLOOD SPECIMENOrdering Facility: [facility] Address: [address] [place] [address] Performed By: #### 2 4323-8, 27771, ####[facility] LABCLIA [id number] [address] [place] [address] [place] Anion gap [Moles/Vol] 10 mmol/L Normal 8-15 [facility] Comment on above: Order Comment: Speci men Type: BLOOD SPECIMENOrdering Facility: [facility] Address: [address] [place], [place] [address] Performed By: #### 2 4323-8, 2776-08, ####[facility] LABCLIA [id number] [place] [phone] [place] AST [Catalytic activity/Vol] 25 U/L Normal 13-35 [facility] Comment on above: Order Comment: Speci men Type: BLOOD SPECIMENOrdering Facility: [facility] Address: [address] [place] [address] Performed By: #### 2 4323-8, 2776-08, ####[facility] LABCLIA [id number] [place] [phone] [place] Bilirubin [Mass/Vol] 0.4 mg/dL Normal 0.2-1.3 [facility] Comment on above: Order Comment: Speci men Type: BLOOD SPECIMENOrdering Facility: [facility] Address: [address] [place] [address] Performed By: #### 2 4323-8, 2776-08, ####[facility] LABCLIA [id number] [place] [phone] [place] Calcium [Mass/Vol] 8.0 mg/dL Low 8.5-10.2 [facility] Comment on above: Order Comment: Speci men Type: BLOOD SPECIMENOrdering Facility: [facility] Address: [address] [place], [place] [address] Performed By: #### 2 4323-8, 2776-08, ####[facility] LABCLIA [id number] [facility] [address] [address] [place] Chloride [Moles/Vol] 105 mmol/L Normal 98-107 [facility] Comment on above: Order Comment: Speci men Type: BLOOD SPECIMENOrdering Facility: [facility] Address: [address] [place], [place] [address] Performed By: #### 2 4323-8, 2776-08, ####[facility] LABCLIA [id number] [address] [address] [place] CO2 [Moles/Vol] 21 mmol/L Low 22-30 [facility] Comment on above: Order Comment: Speci men Type: BLOOD SPECIMENOrdering Facility: [facility] Address: [address] [place] [address] Performed By: #### 2 4323-8, 2776-08, ####[facility] LABCLIA [id number] [address] [address] [place] Creatinine [Mass/Vol] 0.75 mg/dL Normal 0.58-0.96 [facility] Comment on above: Order Comment: Speci men Type: BLOOD SPECIMENOrdering Facility: [facility] Address: [address] [place] [address] Performed By: #### 2 4323-8, 2776-08, ####[facility] LABCLIA [id number] [address] [address] [place] Creatinine and Glomerular filtration rate.predicted panel (S/P/Bld) 80 mL/min/1.73m??? Normal >=60 [facility] Comment on above: Order Comment: Speci men Type: BLOOD SPECIMENOrdering Facility: [facility] Address: [address] [place] [address] Result Comment: Brandy mated Glomerular Filtration Rate [...] GFR. Performed By: #### 2 4323-8, 27702-15, ####[facility] LABCLIA [id number] [address] [address] [place] Glucose [Mass/Vol] 156 mg/dL High 74-99 [facility] Comment on above: Order Comment: Speci men Type: BLOOD SPECIMENOrdering Facility: [facility] Address: [address] [place] [address] Result Comment: The [place] [employer] (ADA) provides guidance for cutoff [...] Standards of Medical Care in Diabetes 2016, [place] [employer]. Diabetes Care. 2016.39(Suppl 1). Performed By: #### 2 4323-8, 2776-08, ####[facility] LABCLIA [id number] [address] [address] [place] Potassium [Moles/Vol] 4.8 mmol/L Normal 3.7-5.1 [facility] Comment on above: Order Comment: Speci men Type: BLOOD SPECIMENOrdering Facility: [facility] Address: [address] [place] [address] Performed By: #### 2 4323-8, 27702-15, ####[facility] LABIA [id number] [address] [address] [place] Protein [Mass/Vol] 6.0 g/dL Low 6.3-8.0 [facility] Comment on above: Order Comment: Speci men Type: BLOOD SPECIMENOrdering Facility: [facility] Address: [address] [place], [place] [address] Performed By: #### 2 4323-8, 27771, ####[facility] LABIA [id number] [place] [phone] [place] Sodium [Moles/Vol] 136 mmol/L Normal 136-144 [facility] Comment on above: Order Comment: Speci men Type: BLOOD SPECIMENOrdering Facility: [facility] Address: [address] [place], [place] [address] Performed By: #### 2 4323-8, 27702-15, ####[facility] LABIA [id number] [place] [phone] [place] Urea nitrogen [Mass/Vol] 13 mg/dL Normal 7-21 [facility] Comment on above: Order Comment: Speci men Type: BLOOD SPECIMENOrdering Facility: [facility] Address: [address] [place] [address] Performed By: #### 2 4323-8, 27702-15, ####[facility] [id number] [place] [phone] [place] ERCPon 11-16-2024 ERCP Normal [facility] Magnesium SerPl-mCncon 11-16 Magnesium [Mass/Vol] 1.8 mg/dL Normal 1.7-2.3 [facility] Comment on above: Order Comment: Speci men Type: BLOOD SPECIMENOrdering Facility: [facility] Address: [address] [place], [place] [address] Performed By: #### 2 4323-8, 27702-15, ####[facility] LABIA [id number] [address] [address] [place] NURSING PROGon 11-16-2024 NURSING PROG Normal [facility] NURSING PROG Normal [facility] NUTRITIONon 11-16-2024 NUTRITION Normal [facility] PT panel Coag (PPP)on 2024 INR Coag (PPP) [Relative time] 1.2 {INR} Normal 0.9-1.3 [facility] Comment on above: Order Comment: Ramirez gamez Type: BLOOD SPECIMENOrdering Facility: [facility] Address: [address] [place] [address] Result Comment: Brook min K Antagonist (VKA) Therapeutic Range: INR 2 to 3 (Target INR of 2.5)Note: For patients treated with VKA drugs, such as warfarin, the [place] [employer] 2012 Guideline recommends [...] al. Chest 2012, 141:7S-47SNishimura RA, et al. [facility] 2017, 70: 252-289 Performed By: #### 3 4528-0, 20414-7 ####[facility] LABIA [id number] [place] [phone] [place] PT Coag (PPP) [Time] 13.3 s High 9.7-13.0 [facility] Comment on above: Order Comment: Ramirez gamez Type: BLOOD SPECIMENOrdering Facility: [facility] Address: [address] [place] [address] Performed By: #### 3 4528-0, 87257-1 ####[facility] LABIA [id number] [address] [address] [place] Phosphate SerPl-mCncon 11-16 Phosphate [Mass/Vol] 2.5 mg/dL Low 2.7-4.8 [facility] Comment on above: Order Comment: Speci men Type: BLOOD SPECIMENOrdering Facility: [facility] Address: [address] [place] [address] Performed By: #### 2 4323-8, 2777-1, 27788-6 ####[facility] LABCLIA [id number] [place] [address] [place] aPTT PPPon 11-16-2024 aPTT Coag (PPP) [Time] 34.8 s High 23.0-32.4 [facility] Comment on above: Order Comment: Speci men Type: BLOOD SPECIMENOrdering Facility: [facility] Address: [address] [place] [address] Performed By: #### 3 4528-0, 75416-5 ####[facility] LABIA [id number] [place] [address] [place] CBC panel Auto (Bld)on 11-15 Erythrocyte distribution width (RBC) [Ratio] 13.8 % Normal 11.5-15.0 [facility] Comment on above: Order Comment: Speci men Type: BLOOD SPECIMENOrdering Facility: [facility] Address: [address] [place] [address] Performed By: #### 5 8410-2 ####[facility] LABIA [id number] [place] [address] [place] Hematocrit (Bld) [Volume fraction] 35.0 % Low 36.0-46.0 [facility] Comment on above: Order Comment: Speci men Type: BLOOD SPECIMENOrdering Facility: [facility] Address: [address] [place] [address] Performed By: #### 5 8410-2 ####[facility] LABCLIA [id number] [place] [address] [place] Hemoglobin (Bld) [Mass/Vol] 10.7 g/dL Low 11.5-15.5 [facility] Comment on above: Order Comment: Speci men Type: BLOOD SPECIMENOrdering Facility: [facility] Address: [address] [place] [address] Performed By: #### 5 8410-2 ####[facility] LABIA [id number] [place] [address] [place] MCH (RBC) [Entitic mass] 28.6 pg Normal 26.0-34.0 [facility] Comment on above: Order Comment: Speci men Type: BLOOD SPECIMENOrdering Facility: [facility] Address: [address] [place] [address] Performed By: #### 5 8410-2 ####[facility]BR[facility] [id number] [place] [address] [place] MCHC (RBC) [Mass/Vol] 30.6 g/dL Normal 30.5-36.0 [facility] Comment on above: Order Comment: Speci men Type: BLOOD SPECIMENOrdering Facility: [facility] Address: [address] [place] [address] Performed By: #### 5 8410-2 ####[facility] [id number] [place] [address] [place] MCV (RBC) [Entitic vol] 93.6 fL Normal 80.0-100.0 [facility] Comment on above: Order Comment: Speci men Type: BLOOD SPECIMENOrdering Facility: [facility] Address: [address] [place] [address] Performed By: #### 5 8410-2 ####[facility] LABIA [id number] [place] [address] [place] Nucleated RBC (Bld) [#/Vol] 10*3/uL Normal <0.01 [facility] Comment on above: Order Comment: Speci men Type: BLOOD SPECIMENOrdering Facility: [facility] Address: [address] [place] [address] Performed By: #### 5 8410-2 ####[facility] LABCLIA [id number] [address] [place] [address] [place] Platelet mean volume (Bld) [Entitic vol] 10.5 fL Normal 9.0-12.7 [facility] Comment on above: Order Comment: Speci men Type: BLOOD SPECIMENOrdering Facility: [facility] Address: [address] [place] [address] Performed By: #### 5 8410-2 ####[facility] LABCLIA [id number] [address] [place] [address] [place] Platelets (Bld) [#/Vol] 156 10*3/uL Normal 150-400 [facility] Comment on above: Order Comment: Speci men Type: BLOOD SPECIMENOrdering Facility: [facility] Address: [address] [place] [address] Performed By: #### 5 8410-2 ####[facility] LABIA [id number] [address] [place] [address] [place] RBC (Bld) [#/Vol] 3.74 10*6/uL Low 3.90-5.20 [facility] Comment on above: Order Comment: Speci men Type: BLOOD SPECIMENOrdering Facility: [facility] Address: [address] [place] [address] Performed By: #### 5 8410-2 ####[facility] LABCLIA [id number] [address] [place] [address] [place] WBC (Bld) [#/Vol] 4.56 10*3/uL Normal 3.70-11.00 [facility] Comment on above: Order Comment: Speci men Type: BLOOD SPECIMENOrdering Facility: [facility] Address: [address] [place] [address] Performed By: #### 5 8410-2 ####[facility] LABCLIA [id number] [address] [address] [place] CNPNon 11-15-2024 CNPN Normal [facility] Comprehensive metabolic 2000 panelon 11-15-2024 Albumin [Mass/Vol] 3.8 g/dL Low 3.9-4.9 [facility] Comment on above: Order Comment: Speci men Type: BLOOD SPECIMENOrdering Facility: [facility] Address: [address] [place] [address] Performed By: #### 2 4323-8 ####[facility] LABCLIA [id number] [place] [phone] [place] ALP [Catalytic activity/Vol] 161 U/L High 34-123 [facility] Comment on above: Order Comment: Speci men Type: BLOOD SPECIMENOrdering Facility: [facility] Address: [address] [place] [address] Performed By: #### 2 4323-8 ####[facility] LABCLIA [id number] [place] [address] [place] ALT [Catalytic activity/Vol] 33 U/L Normal 7-38 [facility] Comment on above: Order Comment: Speci men Type: BLOOD SPECIMENOrdering Facility: [facility] Address: [address] [place] [address] Performed By: #### 2 4323-8 ####[facility] LABCLIA [id number] [place] [phone] [place] Anion gap [Moles/Vol] 10 mmol/L Normal 8-15 [facility] Comment on above: Order Comment: Speci men Type: BLOOD SPECIMENOrdering Facility: [facility] Address: [address] [place] [address] Performed By: #### 2 4323-8 ####[facility] LABCLIA [id number] [place] [phone] [place] AST [Catalytic activity/Vol] 29 U/L Normal 13-35 [facility] Comment on above: Order Comment: Speci men Type: BLOOD SPECIMENOrdering Facility: [facility] Address: [address] [place], [place] [address] Performed By: #### 2 4323-8 ####[facility] LABCLIA [id number] [place] [phone] [place] Bilirubin [Mass/Vol] 0.3 mg/dL Normal 0.2-1.3 [facility] Comment on above: Order Comment: Speci men Type: BLOOD SPECIMENOrdering Facility: [facility] Address: [address] [place] [address] Performed By: #### 2 4323-8 ####[facility] LABCLIA [id number] [place] [address] [place] Calcium [Mass/Vol] 8.4 mg/dL Low 8.5-10.2 [facility] Comment on above: Order Comment: Speci men Type: BLOOD SPECIMENOrdering Facility: [facility] Address: [address] [place] [address] Performed By: #### 2 4323-8 ####[facility] LABCLIA [id number] [place] [address] [place] Chloride [Moles/Vol] 106 mmol/L Normal 98-107 [facility] Comment on above: Order Comment: Speci men Type: BLOOD SPECIMENOrdering Facility: [facility] Address: [address] [place] [address] Performed By: #### 2 4323-8 ####[facility] LABCLIA [id number] [facility] [place] [phone] [place] CO2 [Moles/Vol] 22 mmol/L Normal 22-30 [facility] Comment on above: Order Comment: Speci men Type: BLOOD SPECIMENOrdering Facility: [facility] Address: [address] [place], [place] [address] Performed By: #### 2 4323-8 ####[facility] LABCLIA [id number] [place] [phone] [place] [facility] Creatinine [Mass/Vol] 0.77 mg/dL Normal 0.58-0.96 [facility] Comment on above: Order Comment: Ramirez gamez Type: BLOOD SPECIMENOrdering Facility: [facility] Address: [address] [place] [address] Performed By: #### 2 4323-8 ####[facility]BRATT[facility] [id number] [address] OF [facility] Creatinine and Glomerular filtration rate.predicted panel (S/P/Bld) 77 mL/min/1.73m??? Normal >=60 [facility] Comment on above: Order Comment: Ramirez gamez Type: BLOOD SPECIMENOrdering Facility: [facility] Address: [address] [place] [address] Result Comment: Brandy mated Glomerular Filtration Rate [...] actual GFR. Performed By: #### 2 4323-8 ####[facility] LABIA [id number] [place] [address] [place] Glucose [Mass/Vol] 120 mg/dL High 74-99 [facility] Comment on above: Order Comment: Ramirez gamze Type: BLOOD SPECIMENOrdering Facility: [facility] Address: [address] [place] [address] Result Comment: The [place] [employer] (ADA) provides guidance for cutoff [...] Standards of Medical Care in Diabetes 2016, [place] [employer]. Diabetes Care. 2016.39(Suppl 1). Performed By: #### 2 4323-8 ####[facility] LABCLIA [id number] [address] [address] [place] Potassium [Moles/Vol] 4.2 mmol/L Normal 3.7-5.1 [facility] Comment on above: Order Comment: Speci men Type: BLOOD SPECIMENOrdering Facility: [facility] Address: [address] [place] [address] Performed By: #### 2 432-8 ####[facility] LABIA [id number] [address] [address] [place] Protein [Mass/Vol] 6.4 g/dL Normal 6.3-8.0 [facility] Comment on above: Order Comment: Speci men Type: BLOOD SPECIMENOrdering Facility: [facility] Address: [address] [place], [place] [address] Performed By: #### 2 432-8 ####[facility] LABIA [id number] [address] [address] [place] Sodium [Moles/Vol] 138 mmol/L Normal 136-144 [facility] Comment on above: Order Comment: Speci men Type: BLOOD SPECIMENOrdering Facility: [facility] Address: [address] [place] [address] Performed By: #### 2 4323-8 ####[facility] LABCLIA [id number] [address] [address] [place] Urea nitrogen [Mass/Vol] 16 mg/dL Normal 7-21 [facility] Comment on above: Order Comment: Speci men Type: BLOOD SPECIMENOrdering Facility: [facility] Address: [address] [place] [address] Performed By: #### 2 4323-8 ####[facility] [id number] [place] [id number] [place] HISTORY PHYSICALon HISTORY PHYSICAL Normal [facility] NURSING PROGon 11-15-2024 NURSING PROG Normal [facility] PT panel Coag (PPP)on 2024 INR Coag (PPP) [Relative time] 1.2 {INR} Normal 0.9-1.3 [facility] Comment on above: Order Comment: Speci men Type: BLOOD SPECIMENOrdering Facility: [facility] Address: [address] [place] [address] Result Comment: Brook min K Antagonist (VKA) Therapeutic Range: INR 2 to 3 (Target INR of 2.5)Note: For patients treated with VKA drugs, such as warfarin, the [place] [employer] 2012 Guideline recommends [...] al. Chest 2012, 141:7S-47SYakov RA, et al. [facility] 2017, 70: 252-289 Performed By: #### 3 4528-0, 11664-1 ####[facility] [id number] [place] [id number] [place] PT Coag (PPP) [Time] 12.8 s Normal 9.7-13.0 [facility] Comment on above: Order Comment: Speci men Type: BLOOD SPECIMENOrdering Facility: [facility] Address: [address] [place] [address] Performed By: #### 3 4528-0, 97480-2 ####[facility] LABCLIA [id number] [place] [address] [place] TYPE + SCREENon 11-15-2024 ABO A Normal [facility] Comment on above: Order Comment: Speci men Type: BLOOD SPECIMENOrdering Facility: [facility] Address: [address] [place] [address] Performed By: #### T SCR ####CC [facility] BLOOD BANKCLIA [id number] [place] [address] [place] Rh Nom (Bld) Positive Normal [facility] Comment on above: Order Comment: Speci men Type: BLOOD SPECIMENOrdering Facility: [facility] Address: [address] [place] [address] Performed By: #### T SCR ####CC [facility] BLOOD BANKCLIA [id number] [place] [address] [place] TYPE AND SCREEN EXPIRATION 11/18/2024 23:59 Normal [facility] Comment on above: Order Comment: Speci men Type: BLOOD SPECIMENOrdering Facility: [facility] Address: [address] [place] [address] Performed By: #### T SCR ####[facility] BLOOD BANKCLIA [id number] [place] [address] [place] aPTT PPPon 11-15-2024 aPTT Coag (PPP) [Time] 29.8 s Normal 23.0-32.4 [facility] Comment on above: Order Comment: Speci men Type: BLOOD SPECIMENOrdering Facility: [facility] Address: [address] [place] [address] Performed By: #### 3 4528-0, 31758-6 ####[facility] LABCLIA [id number] [place] [address] [place] CNPNon 11-12-2024 CNPN Normal [facility] CNTHERAPYon 03-28-2025 CNTHERAPY OT/PT/Speech Visit ( [facility]) LILLIANLAUREN Dinero ([id number]) 1940 F Date Time Provider Department 11/12/24 3:[address] [facility] Date Time Provider Department [place] 11/12/2024 3:30 PM [id number]-[facility], DIANDRA [facility] Reason for Visit: Occupational Therapy [...] 1,000 mcg intramuscularly once every month. Vitamin T-06-viknrhvzzenqxt - ammonium lactate (LAC-HYDRIN) 12 % lotion [...] every 6 months. Last injection November [address] [facility] [address] ABD/PEL W IVCONon 025 CT ABD/PEL W IVCON Invalid Interpretation Code [facility] Chest PA and Lateralon 11-09 Chest PA and Lateral [facility] [address] [place] [address] Chest PA and Lateral MR#: [id number] Acct: [id number] Name: LAUREN ALCARAZ Rep #: [id number] : 1940 F 84 From: Harjinder Doherty MD PCP: Dr. Chema Perry MD Status: [facility] CLI Study: Chest PA and Lateral Date of Exam: 11/09/24 Exam# [id number] Ordering Dr: Chema Perry MD EXAM: XR [...] Lateral IMPRESSION: Suggestion of COPD. Reading Location: [facility] CC: Dr. Chema Perry MD Scallop Shucker: Signed Normal [facility] CBC panel Auto (Bld)on 11-08 Erythrocyte distribution width (RBC) [Ratio] 14.0 % Normal 11.5-15.0 [facility] Comment on above: Order Comment: Speci men Type: BLOOD SPECIMENOrdering Facility: [facility] Address: [address] [place] [address] Performed By: #### 5 8410-2 ####[facility] [id number] [place] [address] [place] Hematocrit (Bld) [Volume fraction] 33.8 % Low 36.0-46.0 [facility] Comment on above: Order Comment: Speci men Type: BLOOD SPECIMENOrdering Facility: [facility] Address: [address] [place] [address] Performed By: #### 5 8410-2 ####[facility] [id number] [place] [address] [place] Hemoglobin (Bld) [Mass/Vol] 10.7 g/dL Low 11.5-15.5 [facility] Comment on above: Order Comment: Speci men Type: BLOOD SPECIMENOrdering Facility: [facility] Address: [address] [place] [address] Performed By: #### 5 8410-2 ####[facility] [id number] [place] [address] [place] MCH (RBC) [Entitic mass] 29.6 pg Normal 26.0-34.0 [facility] Comment on above: Order Comment: Speci men Type: BLOOD SPECIMENOrdering Facility: [facility] Address: [address] [place] [address] Performed By: #### 5 8410-2 ####[facility] [id number] [place] [address] [place] MCHC (RBC) [Mass/Vol] 31.7 g/dL Normal 30.5-36.0 [facility] Comment on above: Order Comment: Speci men Type: BLOOD SPECIMENOrdering Facility: [facility] Address: [address] [place] [address] Performed By: #### 5 8410-2 ####[facility]INGSRENETTA [id number] [place] [address] [place] MCV (RBC) [Entitic vol] 93.6 fL Normal 80.0-100.0 [facility] Comment on above: Order Comment: Speci men Type: BLOOD SPECIMENOrdering Facility: [facility] Address: [address] [place] [address] Performed By: #### 5 8410-2 ####[facility] [id number] [place] [address] [place] Nucleated RBC (Bld) [#/Vol] 10*3/uL Normal <0.01 [facility] Comment on above: Order Comment: Speci men Type: BLOOD SPECIMENOrdering Facility: [facility] Address: [address] [place] [address] Performed By: #### 5 8410-2 ####[facility]SMORIAHLI [id number] [place] [address] [place] Platelet mean volume (Bld) [Entitic vol] 10.2 fL Normal 9.0-12.7 [facility] Comment on above: Order Comment: Speci men Type: BLOOD SPECIMENOrdering Facility: [facility] Address: [address] [place] [address] Performed By: #### 5 8410-2 ####[facility] [id number] [place] [address] [place] Platelets (Bld) [#/Vol] 188 10*3/uL Normal 150-400 [facility] Comment on above: Order Comment: Speci men Type: BLOOD SPECIMENOrdering Facility: [facility] Address: [address] [place] [address] Performed By: #### 5 8410-2 ####[facility] [id number] [place] [address] [place] RBC (Bld) [#/Vol] 3.61 10*6/uL Low 3.90-5.20 [facility] Comment on above: Order Comment: Speci men Type: BLOOD SPECIMENOrdering Facility: [facility] Address: [address] [place] [address] Performed By: #### 5 8410-2 ####[facility]INGSNCA [id number] [place] [address] [place] WBC (Bld) [#/Vol] 4.89 10*3/uL Normal 3.70-11.00 [facility] Comment on above: Order Comment: Speci men Type: BLOOD SPECIMENOrdering Facility: [facility] Address: [address] [place] [address] Performed By: #### 5 8410-2 ####[facility] [id number] [place] [address] [place] CREATININE BLDon 11-08-2024 Creatinine [Mass/Vol] 0.79 mg/dL Normal 0.58-0.96 [facility] Comment on above: Order Comment: Speci men Type: BLOOD SPECIMENOrdering Facility: [facility] Address: [address] [place] [address] Performed By: #### C RET1 ####[facility] [id number] [place] [address] [place] Creatinine and Glomerular filtration rate.predicted panel (S/P/Bld) 75 mL/min/1.73m??? Normal >=60 [facility] Comment on above: Order Comment: Speci men Type: BLOOD SPECIMENOrdering Facility: [facility] Address: [place] [address] Result Comment: Brandy mated Glomerular Filtration Rate [...] actual GFR. Performed By: #### C RET1 ####[facility] [id number] [address] [place] CNTHERAPYon 11-05-2024 CNTHERAPY OT/PT/Speech Visit ( [facility]) LAUREN ALCARAZ ([id number]) 1940 F Date Time Provider Department 11/05/24 2:[address] [facility] Date Time Provider Department Center 11/05/2024 2:00 PM [id number], DIANDRA [facility] Reason for Visit: Occupational Therapy [504] [...] 1,000 mcg intramuscularly once every month. Vitamin D-35-tcmxjpmngszbmx - ammonium lactate (LAC-HYDRIN) 12 % lotion [...] Street OTR/Tori on 11/05/2024 2:13 PM Normal [facility] CNOVon 11-03-2024 CNOV Normal [facility] VISUAL FIELD 24-2 OU (BOTH E YES)on 11-01-2024 [facility] Radiology Study observation (narrative) [facility] [id number] 10-29-2024 [id number] HNO ID: [id number] Author: [address]HA STREET OTR/L Service: ? Author Type: Occupational Therapist Type: [id number] Filed: 10/29/2024 12:32 Note Text: [facility] Rehabilitation and Sports Therapy Occupational Therapy Plan of Care Certification Patient Name: Lauren Alcaraz : 1940 [facility] #: [id number] Date: 10/29/2024 To: Laisha Lizarraga, APR* From [...] 10/29/24 Patient will complete HEP at Modified [place] level. Patient will increase bilateral education adviser and pinches by 5# to improve function [...] Planned: 8 Planned Treatment Interventions: Therapeutic exercise (56016), Neuromuscular re-education (91755), Self-alf management (55740), Patient/Family/Caregiver Education PLAN FOR NEXT VISIT:assess different writing utensils, proximal stability? button hook, gentle education adviser strengthening Patient demonstrates good understanding of plan of care and treatment. The above goals and plan of care were discussed and agreed upon by patient/family. For further details regarding this patient refer to the Occupational Therapy electronically documented visit dated 10/29/2024. Provider Attestation I have reviewed the treatment plan for Lauren Alcaraz, CCF# [id number] for the period of 10/29/24 -- 12/28/24, established on 10/29/2024. Signature certifies the need for therapy services. [facility] CNOVon 10-29-2024 [facility]24 [facility] Telephone (GENLUH) LAUREN ALCARAZ ([id number]) 1940 F Date Time Provider Department 10/29/24 ANILA DE PAZ GENLU During your visit today, we recorded the following information about you: Sandie Messina 10/29/2024 2:26 PM Signed Incoming call from [facility] pharmacy states the compound that was sent [...] 1,000 mcg intramuscularly once every month. Vitamin Y-59-wuxexydjaajigk - ammonium lactate (LAC-HYDRIN) 12 % lotion [...] of malignant neop (more content not included)... [facility] CNTHERAPYon 10-29-2024 CNTHERAPY OT/PT/Speech Visit ( [facility]) LAUREN ALCARAZ ([id number]) 1940 F Date Time Provider Department 10/29/24 10:[address] [facility] Date Time Provider Department Center 10/29/2024 10:45 AM [id number], DIANDRA [facility] Reason for Visit: OT EVAL [748] Primary [...] 1,000 mcg intramuscularly once every month. Vitamin Y-80-znudaifeissicw - ammonium lactate (LAC-HYDRIN) 12 % lotion [...] every 6 months. Last injection November 2020 [facility] Pulmonary Visit Reporton Pulmonary Visit Report [facility] of [address] [place] [address] OFFICE VISIT Date of Service: 10/22/24 MR#: [id number] Acct: [id number] Name: LAUREN ALCARAZ Rep #: [id number] : 1940 Provider: BURAK Vincent Age/Sex: 84/F Location: [facility] Status: Signed Assessment and Plan Assessment and Plan (1) Bronchiectasis: Status: Chronic Qualifiers: Bronchiectasis type: uncomplicated Qualified Code(s): J47.9 - Bronchiectasis, uncomplicated Comment: Lingular subsegment Plan: Stable, no signs of exacerbation of bronchiectasis today. No change in maintenance medications, she is only requiring xzep-xul-tmrebpt antihistamine. No additional testing at this time. [...] air Intake Visit Reasons: 6 M FU Layer Off Required: No DME Vendor: [employer] [...] denosumab 60 mg/mL subcutaneous 60 mg subcut [id number] #1 mL 10/22/24 Rx syringe (Prolia) BD [...] mL 4 (more content not included)... Normal [facility] Breast imaging reportOrdered By: Sam Mac on 10-18-2024 Study report [facility] [address] [place] [address] SCRN MAMM (CAD)W/EVERETT BILAT MR#: [id number] Acct: [id number] Name: LAUREN ALCARAZ Rep #: [id number] : 1940 F 84 From: Cody Mac MD PCP: Dr. Chema Perry MD Status: [facility] Study:SCRN MAMM (CAD)W/EVERETT BILAT Date of Exa m: 10/18/24 Exam# [id number] Ordering Dr: Chema Perry MD PROCEDURE: SCRN [...] [facility] CC: Dr. Chema Perry MD ~ Scallop Shucker: Signed [facility] SCRN MAMM (CAD)W/EVERETT BILATo n 10-18-2024 SCRN MAMM (CAD)W/EVERETT BILAT [facility] [address] [place] [address] SCRN MAMM (CAD)W/EVERETT BILAT MR#: [id number] Acct: [id number] Name: LAUREN ALCARAZ Rep #: [id number] : 1940 F 84 From: Sam stafford MD PCP: Dr. Chema Perry MD Status: [facility] Study: SCRN MAMM (CAD)W/EVERETT BILAT Date of Exam: 11/09 Exam# [id number] Ordering Dr: Chema Perry MD PROCEDURE: SCRN [...] Location: [facility] CC: Dr. Chema Perry MD Scallop Shucker: Signed Normal [facility] MR/BMS.IMBon 10-14-2024 MR/BMS.IMB [facility] [address] [facility] [place] [address] OFFICE VISIT Date of Service: 10/14/24 MR#: [id number] Acct: [id number] Name: LAUREN ALCARAZ Rep #: [id number] : 1940 Provider: Dr. Chema williamson MD Age/Sex: 84/F Location: [facility] Status: Signed Intake Vital Signs 09/18/24 08:37 10/14/24 13:18 Height 4 ft 7 in 4 ft 7 in Weight: 105 lb 4 oz BMI 24.4 BP 113/79 Blood Pressure Location Lt brachial Position Sitting Respiration 16 Pulse 78 Pulse Source Monitor Temp 98.4 F Temp Source Temporal Pulse Oximetry (%) 90 Oxygen Delivery Method room air Intake Visit Reasons: F/U Care Home Discharge Chief Complaint: F/U residential discharge Layer Off Required: No Accompanied by: Self Is patient [...] denosumab 60 mg/mL subcutaneous 60 mg subcut [id number] #1 mL 10/14/24 Rx syringe (Prolia) BD [...] you fallen in the past year?: No [facility] Medical History Open wound of right lower extremity Contusion of right foot Kyphoscoliosis deform (more content not included)... Normal [facility] CNOVon 10-13-2024 CNOV Normal [facility] CNOVon 10-08-2024 CNOV Normal [facility] CASE MANAGEMon 09-23-2024 CASE MANAGEM Normal [facility] CASE MANAGEM Normal [facility] CASE MANAGEM Normal [facility] CBC panel Auto (Bld)on 09-23 Erythrocyte distribution width (RBC) [Ratio] 13.6 % Normal 11.5-15.0 [facility] Comment on above: Order Comment: Speci men Type: BLOOD SPECIMENOrdering Facility: [facility] Address: [address] [place] [address] Performed By: #### 5 8410-2 ####[facility]BR[facility] [id number] [place] [address] [place] Hematocrit (Bld) [Volume fraction] 33.2 % Low 36.0-46.0 [facility] Comment on above: Order Comment: Speci men Type: BLOOD SPECIMENOrdering Facility: [facility] Address: [address] [place] [address] Performed By: #### 5 8410-2 ####[facility] LABIA [id number] [place] [address] [place] Hemoglobin (Bld) [Mass/Vol] 10.7 g/dL Low 11.5-15.5 [facility] Comment on above: Order Comment: Speci men Type: BLOOD SPECIMENOrdering Facility: [facility] Address: [address] [place] [address] Performed By: #### 5 8410-2 ####[facility] LABIA [id number] [place] [address] [place] MCH (RBC) [Entitic mass] 29.2 pg Normal 26.0-34.0 [facility] Comment on above: Order Comment: Speci men Type: BLOOD SPECIMENOrdering Facility: [facility] Address: [address] [place] [address] Performed By: #### 5 8410-2 ####[facility] LABIA [id number] [place] [address] [place] MCHC (RBC) [Mass/Vol] 32.2 g/dL Normal 30.5-36.0 [facility] Comment on above: Order Comment: Speci men Type: BLOOD SPECIMENOrdering Facility: [facility] Address: [address] [place] [address] Performed By: #### 5 8410-2 ####[facility] LABIA [id number] [place] [address] [place] MCV (RBC) [Entitic vol] 90.5 fL Normal 80.0-100.0 [facility] Comment on above: Order Comment: Speci men Type: BLOOD SPECIMENOrdering Facility: [facility] Address: [address] [place] [address] Performed By: #### 5 8410-2 ####[facility] LABIA [id number] [place] [address] [place] Nucleated RBC (Bld) [#/Vol] 10*3/uL Normal <0.01 [facility] Comment on above: Order Comment: Speci men Type: BLOOD SPECIMENOrdering Facility: [facility] Address: [address] [place] [address] Performed By: #### 5 8410-2 ####[facility] LABIA [id number] [place] [address] [place] Platelet mean volume (Bld) [Entitic vol] 10.8 fL Normal 9.0-12.7 [facility] Comment on above: Order Comment: Speci men Type: BLOOD SPECIMENOrdering Facility: [facility] Address: [address] [place] [address] Performed By: #### 5 8410-2 ####[facility] LABCLIA [id number] [place] [address] [place] Platelets (Bld) [#/Vol] 150 10*3/uL Normal 150-400 [facility] Comment on above: Order Comment: Speci men Type: BLOOD SPECIMENOrdering Facility: [facility] Address: [address] [place] [address] Performed By: #### 5 8410-2 ####[facility] LABIA [id number] [place] [address] [place] RBC (Bld) [#/Vol] 3.67 10*6/uL Low 3.90-5.20 [facility] Comment on above: Order Comment: Speci men Type: BLOOD SPECIMENOrdering Facility: [facility] Address: [address] [place] [address] Performed By: #### 5 8410-2 ####[facility] LABIA [id number] [place] [address] [place] WBC (Bld) [#/Vol] 5.57 10*3/uL Normal 3.70-11.00 [facility] Comment on above: Order Comment: Speci men Type: BLOOD SPECIMENOrdering Facility: [facility] Address: [address] [place] [address] Performed By: #### 5 8410-2 ####[facility] LABIA [id number] [place] [address] [place] CNDSon 09-23-2024 CNDS Normal [facility] Comprehensive metabolic 2000 panelon 09-23-2024 Albumin [Mass/Vol] 3.3 g/dL Low 3.9-4.9 [facility] Comment on above: Order Comment: Speci men Type: BLOOD SPECIMENOrdering Facility: [facility] Address: [address] [place] [address] Performed By: #### 1 9123-9, 92538-2, 2777-1 ####[facility] LABCLIA [id number] [place] [address] [place] ALP [Catalytic activity/Vol] 71 U/L Normal 34-123 [facility] Comment on above: Order Comment: Speci men Type: BLOOD SPECIMENOrdering Facility: [facility] Address: [address] [place] [address] Performed By: #### 1 9123-9, 03274-0, 2777-1 ####[facility] LABCLIA [id number] [place] [address] [place] ALT [Catalytic activity/Vol] 25 U/L Normal 7-38 [facility] Comment on above: Order Comment: Speci men Type: BLOOD SPECIMENOrdering Facility: [facility] Address: [address] [place] [address] Performed By: #### 1 9123-9, 95703-1, 2777-1 ####[facility] LABCLIA [id number] [place] [address] [place] Anion gap [Moles/Vol] 8 mmol/L Normal 8-15 [facility] Comment on above: Order Comment: Speci men Type: BLOOD SPECIMENOrdering Facility: [facility] Address: [address] [place] [address] Performed By: #### 1 9123-9, 36616-5, 2777- ####[facility] LABCLIA [id number] [place] [address] [place] AST [Catalytic activity/Vol] 30 U/L Normal 13-35 [facility] Comment on above: Order Comment: Speci men Type: BLOOD SPECIMENOrdering Facility: [facility] Address: [address] [place] [address] Performed By: #### 1 9123-9, 37832-3, 2777-1 ####[facility] LABCLIA [id number] [place] [address] [place] Bilirubin [Mass/Vol] 0.5 mg/dL Normal 0.2-1.3 [facility] Comment on above: Order Comment: Speci men Type: BLOOD SPECIMENOrdering Facility: [facility] Address: [address] [place] [address] Performed By: #### 1 9123-9, 16745-6, 2776-08 ####[facility] LABCLIA [id number] [place] [address] [place] Calcium [Mass/Vol] 8.1 mg/dL Low 8.5-10.2 [facility] Comment on above: Order Comment: Speci men Type: BLOOD SPECIMENOrdering Facility: [facility] Address: [address] [place] [address] Performed By: #### 1 9123-9, , 2776-08 ####[facility] LABCLIA [id number] [place] [address] [place] Chloride [Moles/Vol] 102 mmol/L Normal 98-107 [facility] Comment on above: Order Comment: Speci men Type: BLOOD SPECIMENOrdering Facility: [facility] Address: [address] [place] [address] Performed By: #### 1 9123-9, , 2776-08 ####[facility] LABCLIA [id number] [place] [address] [place] CO2 [Moles/Vol] 27 mmol/L Normal 22-30 [facility] Comment on above: Order Comment: Speci men Type: BLOOD SPECIMENOrdering Facility: [facility] Address: [address] [place] [address] Performed By: #### 1 9123-9, 88958-0, 2776-08 ####[facility] LABCLIA [id number] [place] [id number] [place] Creatinine [Mass/Vol] 0.81 mg/dL Normal 0.58-0.96 [facility] Comment on above: Order Comment: Speci men Type: BLOOD SPECIMENOrdering Facility: [facility] Address: [address] [place] [address] Performed By: #### 1 9123-9, 82816-7, 2777-1 ####[facility] LABCLIA [id number] [place] [address] [place] Creatinine and Glomerular filtration rate.predicted panel (S/P/Bld) 73 mL/min/1.73m??? Normal >=60 [facility] Comment on above: Order Comment: Ramirez gamez Type: BLOOD SPECIMENOrdering Facility: [facility] Address: [address] [place] [address] Result Comment: Brandy mated Glomerular Filtration Rate [...] actual GFR. Performed By: #### 1 9123-9, 39252-6, 2777-1 ####[facility] LABCLIA [id number] [place] [address] [place] Glucose [Mass/Vol] 93 mg/dL Normal 74-99 [facility] Comment on above: Order Comment: Ramirez gamez Type: BLOOD SPECIMENOrdering Facility: [facility] Address: [address] [place] [address] Result Comment: The [place] [employer] (ADA) provides guidance for cutoff [...] Standards of Medical Care in Diabetes 2016, [place] [employer]. Diabetes Care. 2016.39(Suppl 1). Performed By: #### 1 9123-9, 79612-4, 2777- ####[facility] LABCLIA [id number] [address] [address] [place] Potassium [Moles/Vol] 3.8 mmol/L Normal 3.7-5.1 [facility] Comment on above: Order Comment: Speci men Type: BLOOD SPECIMENOrdering Facility: [facility] Address: [address] [place] [address] Performed By: #### 1 9123-9, 26593-4, 2776-08 ####[facility] LABCLIA [id number] [place] [address] [place] Protein [Mass/Vol] 5.7 g/dL Low 6.3-8.0 [facility] Comment on above: Order Comment: Speci men Type: BLOOD SPECIMENOrdering Facility: [facility] Address: [address] [place] [address] Performed By: #### 1 9123-9, 47541-2, 2776-08 ####[facility] LABCLIA [id number] [place] [address] [place] Sodium [Moles/Vol] 137 mmol/L Normal 136-144 [facility] Comment on above: Order Comment: Speci men Type: BLOOD SPECIMENOrdering Facility: [facility] Address: [address] [place] [address] Performed By: #### 1 9123-9, 81979-2, 2776- ####[facility] LABCLIA [id number] [address] [address] [place] Urea nitrogen [Mass/Vol] 12 mg/dL Normal 7-21 [facility] Comment on above: Order Comment: Speci men Type: BLOOD SPECIMENOrdering Facility: [facility] Address: [address] [place] [address] Performed By: #### 1 9123-9, 91036-8, 2777-1 ####[facility] LABCLIA [id number] [place] [id number] [place] Magnesium SerPl-mCncon 09-23 Magnesium [Mass/Vol] 1.8 mg/dL Normal 1.7-2.3 [facility] Comment on above: Order Comment: Speci men Type: BLOOD SPECIMENOrdering Facility: [facility] Address: [address] [place] [address] Performed By: #### 1 9123-9, 71497-9, 2777-1 ####[facility] LABCLIA [id number] [place] [address] [place] Phosphate SerPl-mCncon 09-23 Phosphate [Mass/Vol] 1.7 mg/dL Low 2.7-4.8 [facility] Comment on above: Order Comment: Speci men Type: BLOOD SPECIMENOrdering Facility: [facility] Address: [address] [place] [address] Performed By: #### 1 9123-9, 80426-6, 2777-1 ####[facility] LABCLIA [id number] [place] [address] [place] THERAPY NTon 09-23-2024 THERAPY NT Normal [facility] ANES POSTPROC EVALon 025 ANES POSTPROC EVAL Normal [facility] ANES POSTPROC EVAL Normal [facility] CASE MANAGEMon 09-22-2024 CASE MANAGEM Normal [facility] CBC panel Auto (Bld)on 09-22 Erythrocyte distribution width (RBC) [Ratio] 13.7 % Normal 11.5-15.0 [facility] Comment on above: Order Comment: Speci men Type: BLOOD SPECIMENOrdering Facility: [facility] Address: [address] [place] [address] Performed By: #### 5 8410-2 ####[facility] LABCLIA [id number] [place] [address] [place] Hematocrit (Bld) [Volume fraction] 33.8 % Low 36.0-46.0 [facility] Comment on above: Order Comment: Speci men Type: BLOOD SPECIMENOrdering Facility: [facility] Address: [address] [place] [address] Performed By: #### 5 8410-2 ####[facility] LABIA [id number] [place] [address] [place] Hemoglobin (Bld) [Mass/Vol] 10.8 g/dL Low 11.5-15.5 [facility] Comment on above: Order Comment: Speci men Type: BLOOD SPECIMENOrdering Facility: [facility] Address: [address] [place] [address] Performed By: #### 5 8410-2 ####[facility] LABIA [id number] [place] [address] [place] MCH (RBC) [Entitic mass] 29.1 pg Normal 26.0-34.0 [facility] Comment on above: Order Comment: Speci men Type: BLOOD SPECIMENOrdering Facility: [facility] Address: [address] [place] [address] Performed By: #### 5 8410-2 ####[facility] LABIA [id number] [place] [address] [place] MCHC (RBC) [Mass/Vol] 32.0 g/dL Normal 30.5-36.0 [facility] Comment on above: Order Comment: Speci men Type: BLOOD SPECIMENOrdering Facility: [facility] Address: [address] [place] [address] Performed By: #### 5 8410-2 ####[facility] LABIA [id number] [place] [address] [place] MCV (RBC) [Entitic vol] 91.1 fL Normal 80.0-100.0 [facility] Comment on above: Order Comment: Speci men Type: BLOOD SPECIMENOrdering Facility: [facility] Address: [address] [place] [address] Performed By: #### 5 8410-2 ####[facility] LABIA [id number] [place] [address] [place] Nucleated RBC (Bld) [#/Vol] 10*3/uL Normal <0.01 [facility] Comment on above: Order Comment: Speci men Type: BLOOD SPECIMENOrdering Facility: [facility] Address: [address] [place] [address] Performed By: #### 5 8410-2 ####[facility] LABIA [id number] [place] [address] [place] Platelet mean volume (Bld) [Entitic vol] 10.6 fL Normal 9.0-12.7 [facility] Comment on above: Order Comment: Speci men Type: BLOOD SPECIMENOrdering Facility: [facility] Address: [address] [place] [address] Performed By: #### 5 8410-2 ####[facility] LABIA [id number] [place] [address] [place] Platelets (Bld) [#/Vol] 147 10*3/uL Low 150-400 [facility] Comment on above: Order Comment: Speci men Type: BLOOD SPECIMENOrdering Facility: [facility] Address: [address] [place] [address] Performed By: #### 5 8410-2 ####[facility] LABIA [id number] [place] [address] [place] RBC (Bld) [#/Vol] 3.71 10*6/uL Low 3.90-5.20 [facility] Comment on above: Order Comment: Speci men Type: BLOOD SPECIMENOrdering Facility: [facility] Address: [address] [place] [address] Performed By: #### 5 8410-2 ####[facility] LABCLIA [id number] [place] [address] [place] WBC (Bld) [#/Vol] 4.72 10*3/uL Normal 3.70-11.00 [facility] Comment on above: Order Comment: Speci men Type: BLOOD SPECIMENOrdering Facility: [facility] Address: [address] [place] [address] Performed By: #### 5 8410-2 ####[facility] LABIA [id number] [place] [address] [place] Comprehensive metabolic 2000 panelon 09-22-2024 Albumin [Mass/Vol] 3.2 g/dL Low 3.9-4.9 [facility] Comment on above: Order Comment: Speci men Type: BLOOD SPECIMENOrdering Facility: [facility] Address: [address] [place] [address] Performed By: #### 1 9123-9, 07663-3, 2777-1 ####[facility] LABIA [id number] [place] [address] [place] ALP [Catalytic activity/Vol] 74 U/L Normal 34-123 [facility] Comment on above: Order Comment: Speci men Type: BLOOD SPECIMENOrdering Facility: [facility] Address: [address] [place] [address] Performed By: #### 1 9123-9, 88260-8, 2777-1 ####[facility] LABIA [id number] [place] [address] [place] ALT [Catalytic activity/Vol] 30 U/L Normal 7-38 [facility] Comment on above: Order Comment: Speci men Type: BLOOD SPECIMENOrdering Facility: [facility] Address: [address] [place] [address] Performed By: #### 1 9123-9, 53681-1, 2777 ####[facility] LABCLIA [id number] [place] [address] [place] Anion gap [Moles/Vol] 9 mmol/L Normal 8-15 [facility] Comment on above: Order Comment: Speci men Type: BLOOD SPECIMENOrdering Facility: [facility] Address: [address] [place] [address] Performed By: #### 1 9123-9, 40490-2, 277- ####[facility] LABCLIA [id number] [place] [address] [place] AST [Catalytic activity/Vol] 45 U/L High 13-35 [facility] Comment on above: Order Comment: Speci men Type: BLOOD SPECIMENOrdering Facility: [facility] Address: [address] [place] [address] Performed By: #### 1 9123-9, 55495-5, 27702-15 ####[facility] LABCLIA [id number] [place] [address] [place] Bilirubin [Mass/Vol] 1.0 mg/dL Normal 0.2-1.3 [facility] Comment on above: Order Comment: Speci men Type: BLOOD SPECIMENOrdering Facility: [facility] Address: [address] [place] [address] Performed By: #### 1 9123-9, 78113-3, 27702-15 ####[facility] LABCLIA [id number] [place] [id number] [place] Calcium [Mass/Vol] 8.0 mg/dL Low 8.5-10.2 [facility] Comment on above: Order Comment: Speci men Type: BLOOD SPECIMENOrdering Facility: [facility] Address: [address] [place] [address] Performed By: #### 1 9123-9, 50333-5, 277- ####[facility] LABCLIA [id number] [place] [address] [place] Chloride [Moles/Vol] 102 mmol/L Normal 98-107 [facility] Comment on above: Order Comment: Speci men Type: BLOOD SPECIMENOrdering Facility: [facility] Address: [address] [place] [address] Performed By: #### 1 9123-9, 35555-4, 2777-1 ####[facility] LABIA [id number] [place] [address] [place] CO2 [Moles/Vol] 25 mmol/L Normal 22-30 [facility] Comment on above: Order Comment: Speci men Type: BLOOD SPECIMENOrdering Facility: [facility] Address: [address] [place] [address] Performed By: #### 1 9123-9, 00893-0, 2777-1 ####[facility] [id number] [place] [address] [place] Creatinine [Mass/Vol] 0.82 mg/dL Normal 0.58-0.96 [facility] Comment on above: Order Comment: Speci men Type: BLOOD SPECIMENOrdering Facility: [facility] Address: [address] [place] [address] Performed By: #### 1 9123-9, 35459-0, 2777-1 ####[facility] [id number] [place] [address] [place] Creatinine and Glomerular filtration rate.predicted panel (S/P/Bld) 72 mL/min/1.73m??? Normal >=60 [facility] Comment on above: Order Comment: Speci men Type: BLOOD SPECIMENOrdering Facility: [facility] Address: [address] [place] [address] Result Comment: Brandy mated Glomerular Filtration Rate [...] Performed By: #### 1 9123-9, , 2776-08 ####[facility] LABCLIA [id number] [address] [address] [place] Glucose [Mass/Vol] 75 mg/dL Normal 74-99 [facility] Comment on above: Order Comment: Ramirez gamez Type: BLOOD SPECIMENOrdering Facility: [facility] Address: [address] [place] [address] Result Comment: The [place] [employer] (ADA) provides guidance for cutoff [...] Standards of Medical Care in Diabetes 2016, [place] [employer]. Diabetes Care. 2016.39(Suppl 1). Performed By: #### 1 9123-9, , 2776-08 ####[facility] LABCLIA [id number] [address] [address] [place] Potassium [Moles/Vol] 4.0 mmol/L Normal 3.7-5.1 [facility] Comment on above: Order Comment: Ramirez gamez Type: BLOOD SPECIMENOrdering Facility: [facility] Address: [address] [place] [address] Performed By: #### 1 9123-9, , 2776-08 ####[facility] LABCLIA [id number] [address] [address] [place] Protein [Mass/Vol] 5.5 g/dL Low 6.3-8.0 [facility] Comment on above: Order Comment: Speci men Type: BLOOD SPECIMENOrdering Facility: [facility] Address: [address] [place] [address] Performed By: #### 1 9123-9, 28807-3, 2777-1 ####[facility] LABCLIA [id number] [place] [address] [place] Sodium [Moles/Vol] 136 mmol/L Normal 136-144 [facility] Comment on above: Order Comment: Speci men Type: BLOOD SPECIMENOrdering Facility: [facility] Address: [address] [place] [address] Performed By: #### 1 9123-9, 78563-6, 2777-1 ####[facility] LABCLIA [id number] [place] [address] [place] Urea nitrogen [Mass/Vol] 11 mg/dL Normal 7-21 [facility] Comment on above: Order Comment: Speci men Type: BLOOD SPECIMENOrdering Facility: [facility] Address: [address] [place] [address] Performed By: #### 1 9123-9, 43231-8, 2777- ####[facility] LABCLIA [id number] [place] [address] [place] Magnesium SerPl-mCncon 09-22 Magnesium [Mass/Vol] 2.1 mg/dL Normal 1.7-2.3 [facility] Comment on above: Order Comment: Speci men Type: BLOOD SPECIMENOrdering Facility: [facility] Address: [address] [place] [address] Performed By: #### 1 9123-9, 74839-6, 2777-1 ####[facility] LABCLIA [id number] [place] [id number] [place] PT EDon 09-22-2024 PT ED Normal [facility] Phosphate SerPl-mCncon 09-22 Phosphate [Mass/Vol] 1.7 mg/dL Low 2.7-4.8 [facility] Comment on above: Order Comment: Speci men Type: BLOOD SPECIMENOrdering Facility: [facility] Address: [address] [place], [place] [address] Performed By: #### 1 9123-9, 81408-5, 2777-1 ####[facility] LABCLIA [id number] [address] [address] [place] THERAPY NTon 09-22-2024 THERAPY NT Normal [facility] Basic metabolic 2000 panelon 09-21-2024 Anion gap [Moles/Vol] 12 mmol/L Normal 8-15 [facility] Comment on above: Order Comment: Speci men Type: BLOOD SPECIMENOrdering Facility: [facility] Address: [address] [place] [address] Performed By: #### 1 9123-9, 2777-1, 25109-4, 24037-9 ####[facility] LABCLIA [id number] [place] [id number] [place] Calcium [Mass/Vol] 8.0 mg/dL Low 8.5-10.2 [facility] Comment on above: Order Comment: Speci men Type: BLOOD SPECIMENOrdering Facility: [facility] Address: [address] [place] [address] Performed By: #### 1 9123-9, 2777-1, 53798-6, 30358-0 ####[facility] LABCLIA [id number] [address] [address] [place] Chloride [Moles/Vol] 102 mmol/L Normal 98-107 [facility] Comment on above: Order Comment: Speci men Type: BLOOD SPECIMENOrdering Facility: [facility] Address: [address] [place] [address] Performed By: #### 1 9123-9, 2777-1, 21976-1, 38363-4 ####[facility] LABCLIA [id number] [place] [address] [place] CO2 [Moles/Vol] 24 mmol/L Normal 22-30 [facility] Comment on above: Order Comment: Speci men Type: BLOOD SPECIMENOrdering Facility: [facility] Address: [address] [place] [address] Performed By: #### 1 9123-9, 2777-1, 77956-9, 47068-9 ####[facility] LABCLIA [id number] [place] [address] [place] Creatinine [Mass/Vol] 0.78 mg/dL Normal 0.58-0.96 [facility] Comment on above: Order Comment: Speci men Type: BLOOD SPECIMENOrdering Facility: [facility] Address: [address] [place] [address] Performed By: #### 1 9123-9, 2777-1, 19694-7, 03656-5 ####[facility] LABIA [id number] [place] [address] [place] Creatinine and Glomerular filtration rate.predicted panel (S/P/Bld) 76 mL/min/1.73m??? Normal >=60 [facility] Comment on above: Order Comment: Speci men Type: BLOOD SPECIMENOrdering Facility: [facility] Address: [address] [place] [address] Result Comment: Brandy mated Glomerular Filtration Rate [...] GFR. Performed By: #### 1 9123-9, 2777-1, 18810-1, 32007-5 ####[facility] LABCLIA [id number] [place] [address] [place] Glucose [Mass/Vol] 64 mg/dL Low 74-99 [facility] Comment on above: Order Comment: Speci men Type: BLOOD SPECIMENOrdering Facility: [facility] Address: [address] [place] [address] Result Comment: The [place] [employer] (ADA) provides guidance for cutoff [...] Standards of Medical Care in Diabetes 2016, [place] [employer]. Diabetes Care. 2016.39(Suppl 1). Performed By: #### 1 9123-9, 2777-1, 98796-6, 68858-3 ####[facility] LABCLIA [id number] [place] [address] [place] Potassium [Moles/Vol] 4.2 mmol/L Normal 3.7-5.1 [facility] Comment on above: Order Comment: Speci men Type: BLOOD SPECIMENOrdering Facility: [facility] Address: [address] [place] [address] Performed By: #### 1 9123-9, 2777-1, 88954-3, 67400-7 ####[facility] LABCLIA [id number] [place] [address] [place] Sodium [Moles/Vol] 138 mmol/L Normal 136-144 [facility] Comment on above: Order Comment: Speci men Type: BLOOD SPECIMENOrdering Facility: [facility] Address: [address] [place] [address] Performed By: #### 1 9123-9, 2777-1, 49861-2, 38104-9 ####[facility] LABCLIA [id number] [place] [id number] [place] Urea nitrogen [Mass/Vol] 15 mg/dL Normal 7-21 [facility] Comment on above: Order Comment: Speci men Type: BLOOD SPECIMENOrdering Facility: [facility] Address: [address] [place] [address] Performed By: #### 1 9123-9, 2777-1, 80411-9, 31283-1 ####[facility] LABCLIA [id number] [place] [address] [place] CASE MANAGEMon 09-21-2024 CASE MANAGEM Normal [facility] CASE MGT INIT ASSESon 2024 CASE MGT INIT ASSES Normal [facility] CBC W Auto Differential pane l (Bld)on 09-21-2024 Basophils (Bld) [#/Vol] 10*3/uL Normal <0.11 [facility] Comment on above: Order Comment: Speci men Type: BLOOD SPECIMENOrdering Facility: [facility] Address: [address] [place] [address] Performed By: #### 5 7021-8 ####[facility] LABCLIA [id number] [place] [address] [place] Basophils/100 WBC (Bld) 0.3 % Normal [facility] Comment on above: Order Comment: Speci men Type: BLOOD SPECIMENOrdering Facility: [facility] Address: [address] [place] [address] Performed By: #### 5 7021-8 ####[facility] LABIA [id number] [place] [address] [place] Differential cell count method Nom (Bld) Auto Normal [facility] Comment on above: Order Comment: Speci men Type: BLOOD SPECIMENOrdering Facility: [facility] Address: [address] [place] [address] Performed By: #### 5 7021-8 ####[facility] LABCLIA [id number] [place] [address] [place] Eosinophils (Bld) [#/Vol] 10*3/uL Normal <0.46 [facility] Comment on above: Order Comment: Speci men Type: BLOOD SPECIMENOrdering Facility: [facility] Address: [address] [place] [address] Performed By: #### 5 7021-8 ####[facility] LABCLIA [id number] [place] [address] [place] Eosinophils/100 WBC (Bld) 0.2 % Normal [facility] Comment on above: Order Comment: Speci men Type: BLOOD SPECIMENOrdering Facility: [facility] Address: [address] [place] [address] Performed By: #### 5 7021-8 ####[facility] LABCLIA [id number] [place] [address] [place] Erythrocyte distribution width (RBC) [Ratio] 13.7 % Normal 11.5-15.0 [facility] Comment on above: Order Comment: Speci men Type: BLOOD SPECIMENOrdering Facility: [facility] Address: [address] [place] [address] Performed By: #### 5 7021-8 ####[facility] LABCLIA [id number] [place] [address] [place] Hematocrit (Bld) [Volume fraction] 35.7 % Low 36.0-46.0 [facility] Comment on above: Order Comment: Speci men Type: BLOOD SPECIMENOrdering Facility: [facility] Address: [address] [place] [address] Performed By: #### 5 7021-8 ####[facility] LABCLIA [id number] [place] [address] [place] Hemoglobin (Bld) [Mass/Vol] 11.2 g/dL Low 11.5-15.5 [facility] Comment on above: Order Comment: Speci men Type: BLOOD SPECIMENOrdering Facility: [facility] Address: [address] [place] [address] Performed By: #### 5 7021-8 ####[facility] LABCLIA [id number] [place] [address] [place] Immature granulocytes (Bld) [#/Vol] 10*3/uL Normal <0.10 [facility] Comment on above: Order Comment: Speci men Type: BLOOD SPECIMENOrdering Facility: [facility] Address: [address] [place] [address] Performed By: #### 5 7021-8 ####[facility] LABCLIA [id number] [place] [address] [place] Immature granulocytes/100 WBC (Bld) 0.3 % Normal [facility] Comment on above: Order Comment: Speci men Type: BLOOD SPECIMENOrdering Facility: [facility] Address: [address] [place] [address] Performed By: #### 5 7021-8 ####[facility] LABCLIA [id number] [place] [address] [place] Lymphocytes (Bld) [#/Vol] 1.31 10*3/uL Normal 1.00-4.00 [facility] Comment on above: Order Comment: Speci men Type: BLOOD SPECIMENOrdering Facility: [facility] Address: [address] [place] [address] Performed By: #### 5 7021-8 ####[facility] LABCLIA [id number] [place] [address] [place] Lymphocytes/100 WBC (Bld) 20.1 % Normal [facility] Comment on above: Order Comment: Speci men Type: BLOOD SPECIMENOrdering Facility: [facility] Address: [address] [place] [address] Performed By: #### 5 7021-8 ####[facility] LABIA [id number] [place] [address] [place] MCH (RBC) [Entitic mass] 28.9 pg Normal 26.0-34.0 [facility] Comment on above: Order Comment: Speci men Type: BLOOD SPECIMENOrdering Facility: [facility] Address: [address] [place] [address] Performed By: #### 5 7021-8 ####[facility] [id number] [place] [address] [place] MCHC (RBC) [Mass/Vol] 31.4 g/dL Normal 30.5-36.0 [facility] Comment on above: Order Comment: Speci men Type: BLOOD SPECIMENOrdering Facility: [facility] Address: [address] [place] [address] Performed By: #### 5 7021-8 ####[facility] [id number] [place] [address] [place] MCV (RBC) [Entitic vol] 92.2 fL Normal 80.0-100.0 [facility] Comment on above: Order Comment: Speci men Type: BLOOD SPECIMENOrdering Facility: [facility] Address: [address] [place] [address] Performed By: #### 5 7021-8 ####[facility] [id number] [place] [address] [place] Monocytes (Bld) [#/Vol] 0.54 10*3/uL Normal <0.87 [facility] Comment on above: Order Comment: Speci men Type: BLOOD SPECIMENOrdering Facility: [facility] Address: [address] [place] [address] Performed By: #### 5 7021-8 ####[facility] [id number] [place] [address] [place] Monocytes/100 WBC (Bld) 8.3 % Normal [facility] Comment on above: Order Comment: Speci men Type: BLOOD SPECIMENOrdering Facility: [facility] Address: [address] [place] [address] Performed By: #### 5 7021-8 ####[facility] LABCLIA [id number] [place] [address] [place] Neutrophils (Bld) [#/Vol] 4.63 10*3/uL Normal 1.45-7.50 [facility] Comment on above: Order Comment: Speci men Type: BLOOD SPECIMENOrdering Facility: [facility] Address: [address] [place] [address] Performed By: #### 5 7021-8 ####[facility] LABCLIA [id number] [place] [address] [place] Neutrophils/100 WBC (Bld) 70.8 % Normal [facility] Comment on above: Order Comment: Speci men Type: BLOOD SPECIMENOrdering Facility: [facility] Address: [address] [place] [address] Performed By: #### 5 7021-8 ####[facility] LABCLIA [id number] [place] [address] [place] Nucleated RBC (Bld) [#/Vol] 10*3/uL Normal <0.01 [facility] Comment on above: Order Comment: Speci men Type: BLOOD SPECIMENOrdering Facility: [facility] Address: [address] [place] [address] Performed By: #### 5 7021-8 ####[facility] LABCLIA [id number] [place] [address] [place] Nucleated RBC/100 WBC (Bld) [Ratio] 0.0 /100 WBC Normal [facility] Comment on above: Order Comment: Speci men Type: BLOOD SPECIMENOrdering Facility: [facility] Address: [address] [place] [address] Performed By: #### 5 7021-8 ####[facility] LABCLIA [id number] [place] [id number] [place] Platelet mean volume (Bld) [Entitic vol] 10.7 fL Normal 9.0-12.7 [facility] Comment on above: Order Comment: Speci men Type: BLOOD SPECIMENOrdering Facility: [facility] Address: [address] [place] [address] Performed By: #### 5 7021-8 ####[facility] LABCLIA [id number] [place] [address] [place] Platelets (Bld) [#/Vol] 158 10*3/uL Normal 150-400 [facility] Comment on above: Order Comment: Speci men Type: BLOOD SPECIMENOrdering Facility: [facility] Address: [address] [place] [address] Performed By: #### 5 7021-8 ####[facility] LABCLIA [id number] [place] [address] [place] RBC (Bld) [#/Vol] 3.87 10*6/uL Low 3.90-5.20 [facility] Comment on above: Order Comment: Speci men Type: BLOOD SPECIMENOrdering Facility: [facility] Address: [address] [place] [address] Performed By: #### 5 7021-8 ####[facility] LABCLIA [id number] [place] [id number] [place] WBC (Bld) [#/Vol] 6.53 10*3/uL Normal 3.70-11.00 [facility] Comment on above: Order Comment: Speci men Type: BLOOD SPECIMENOrdering Facility: [facility] Address: [address] [place] [address] Performed By: #### 5 7021-8 ####[facility] LABCLIA [id number] [address] [address] [place] Hepatic function 2000 panelo n 09-21-2024 Albumin [Mass/Vol] 3.4 g/dL Low 3.9-4.9 [facility] Comment on above: Order Comment: Speci men Type: BLOOD SPECIMENOrdering Facility: [facility] Address: [address] [place] [address] Performed By: #### 1 9123-9, 2777-1, 26870-3, 02176-1 ####[facility] LABCLIA [id number] [place] [address] [place] ALP [Catalytic activity/Vol] 65 U/L Normal 34-123 [facility] Comment on above: Order Comment: Speci men Type: BLOOD SPECIMENOrdering Facility: [facility] Address: [address] [place] [address] Performed By: #### 1 9123-9, 2777-1, 45862-5, 20588-6 ####[facility] LABCLIA [id number] [place] [address] [place] ALT [Catalytic activity/Vol] 30 U/L Normal 7-38 [facility] Comment on above: Order Comment: Speci men Type: BLOOD SPECIMENOrdering Facility: [facility] Address: [address] [place] [address] Performed By: #### 1 9123-9, 2777-1, 22836-7, 74205-0 ####[facility] LABCLIA [id number] [place] [id number] [place] AST [Catalytic activity/Vol] 52 U/L High 13-35 [facility] Comment on above: Order Comment: Speci men Type: BLOOD SPECIMENOrdering Facility: [facility] Address: [address] [place] [address] Performed By: #### 1 9123-9, 2777-1, 69832-1, 15928-2 ####[facility] LABCLIA [id number] [address] [address] [place] Bilirubin [Mass/Vol] 0.9 mg/dL Normal 0.2-1.3 [facility] Comment on above: Order Comment: Speci men Type: BLOOD SPECIMENOrdering Facility: [facility] Address: [address] [place] [address] Performed By: #### 1 9123-9, 2777-1, 35420-0, 48235-9 ####[facility] LABIA [id number] [place] [id number] [place] Bilirubin.conjugate d [Mass/Vol] 0.3 mg/dL High <0.3 [facility] Comment on above: Order Comment: Speci men Type: BLOOD SPECIMENOrdering Facility: [facility] Address: [address] [place] [address] Performed By: #### 1 9123-9, 2777-1, 10824-1, 22695-4 ####[facility] LABIA [id number] [place] [address] [place] Protein [Mass/Vol] 5.8 g/dL Low 6.3-8.0 [facility] Comment on above: Order Comment: Speci men Type: BLOOD SPECIMENOrdering Facility: [facility] Address: [address] [place] [address] Performed By: #### 1 9123-9, 2777-1, 39985-1, 74326-2 ####[facility] LABIA [id number] [address] [address] [place] Magnesium SerPl-mCncon 09-21 Magnesium [Mass/Vol] 1.7 mg/dL Normal 1.7-2.3 [facility] Comment on above: Order Comment: Speci men Type: BLOOD SPECIMENOrdering Facility: [facility] Address: [address] [place] [address] Performed By: #### 1 9123-9, 2777-1, 54018-5, 88741-5 ####[facility] LABCLIA [id number] [place] [address] [place] Phosphate SerPl-mCncon 09-21 Phosphate [Mass/Vol] 2.7 mg/dL Normal 2.7-4.8 [facility] Comment on above: Order Comment: Speci men Type: BLOOD SPECIMENOrdering Facility: [facility] Address: [address] [place] [address] Performed By: #### 1 9123-9, 2777-1, 97957-6, 08871-2 ####[facility] LABIA [id number] [address] [place] THERAPY NTon 09-21-2024 THERAPY NT Normal [facility] ANES PRE-OPon 09-20-2024 ANES PRE-OP Normal [facility] BRIEF OP NOTon 09-20-2024 BRIEF OP NOT Normal [facility] CBC panel Auto (Bld)on 09-20 Erythrocyte distribution width (RBC) [Ratio] 14.1 % Normal 11.5-15.0 [facility] Comment on above: Order Comment: Speci men Type: BLOOD SPECIMENOrdering Facility: [facility] Address: [address] [place] [address] Performed By: #### 5 8410-2 ####[facility] LABIA [id number] [place] [address] [place] Hematocrit (Bld) [Volume fraction] 35.4 % Low 36.0-46.0 [facility] Comment on above: Order Comment: Speci men Type: BLOOD SPECIMENOrdering Facility: [facility] Address: [address] [place] [address] Performed By: #### 5 8410-2 ####[facility] LABIA [id number] [place] [address] [place] Hemoglobin (Bld) [Mass/Vol] 11.1 g/dL Low 11.5-15.5 [facility] Comment on above: Order Comment: Speci men Type: BLOOD SPECIMENOrdering Facility: [facility] Address: [address] [place] [address] Performed By: #### 5 8410-2 ####[facility] LABIA [id number] [place] [address] [place] MCH (RBC) [Entitic mass] 28.5 pg Normal 26.0-34.0 [facility] Comment on above: Order Comment: Speci men Type: BLOOD SPECIMENOrdering Facility: [facility] Address: [address] [place] [address] Performed By: #### 5 8410-2 ####[facility] [id number] [place] [address] [place] MCHC (RBC) [Mass/Vol] 31.4 g/dL Normal 30.5-36.0 [facility] Comment on above: Order Comment: Speci men Type: BLOOD SPECIMENOrdering Facility: [facility] Address: [address] [place] [address] Performed By: #### 5 8410-2 ####[facility] [id number] [place] [address] [place] MCV (RBC) [Entitic vol] 90.8 fL Normal 80.0-100.0 [facility] Comment on above: Order Comment: Speci men Type: BLOOD SPECIMENOrdering Facility: [facility] Address: [address] [place] [address] Performed By: #### 5 8410-2 ####[facility] LABIA [id number] [place] [address] [place] Nucleated RBC (Bld) [#/Vol] 10*3/uL Normal <0.01 [facility] Comment on above: Order Comment: Speci men Type: BLOOD SPECIMENOrdering Facility: [facility] Address: [address] [place] [address] Performed By: #### 5 8410-2 ####[facility] LABIA [id number] [place] [address] [place] Platelet mean volume (Bld) [Entitic vol] 10.0 fL Normal 9.0-12.7 [facility] Comment on above: Order Comment: Speci men Type: BLOOD SPECIMENOrdering Facility: [facility] Address: [address] [place] [address] Performed By: #### 5 8410-2 ####[facility] LABIA [id number] [place] [address] [place] Platelets (Bld) [#/Vol] 137 10*3/uL Low 150-400 [facility] Comment on above: Order Comment: Speci men Type: BLOOD SPECIMENOrdering Facility: [facility] Address: [address] [place] [address] Result Comment: Resu lts checked and verified.No clot detected. Performed By: #### 5 8410-2 ####[facility] LABIA [id number] [place] [address] [place] RBC (Bld) [#/Vol] 3.90 10*6/uL Normal 3.90-5.20 [facility] Comment on above: Order Comment: Speci men Type: BLOOD SPECIMENOrdering Facility: [facility] Address: [address] [place] [address] Performed By: #### 5 8410-2 ####[facility] LABIA [id number] [place] [address] [place] WBC (Bld) [#/Vol] 7.72 10*3/uL Normal 3.70-11.00 [facility] Comment on above: Order Comment: Speci men Type: BLOOD SPECIMENOrdering Facility: [facility] Address: [address] [place] [address] Performed By: #### 5 8410-2 ####[facility] LABCLIA [id number] [place] [id number] [facility] [place] OPERATIVE NOon 09-20-2024 OPERATIVE NO Normal [facility] SURGICAL PATHOLOGYon 025 CASE REPORT Normal [facility] Comment on above: Order Comment: Speci men Type: TISSUE SPECIMENOrdering Facility: [facility] Address: [address] [place] [address] Result Comment: Surg ica Pathology Report Case: [id number] Provider: Anila De Paz MD Collected: 09/20/2024 11:38 AMOrdering Location: Admitting Received: 09/20/2024 02:49 PMPathologist: Susan Ku MDSpecimens: A) - Hernia Sac B) - Gallbladder Performed By: #### S ####[facility] LABCLIA [id number] [address] STATES OF [facility] CLINICAL HISTORY Normal [facility] Comment on above: Order Comment: Speci men Type: TISSUE SPECIMENOrdering Facility: [facility] Address: [address] [place] [address] Result Comment: Pre- op diagnosis:Hiatal hernia [K44.9]Epigastric pain [R10.13]Nausea and vomiting, unspecified vomiting type [R11.2]Pre-op exam [Z01.818] Performed By: #### S ####[facility] LABCLIA [id number] [address] FINAL DIAGNOSIS Normal [facility] Comment on above: Order Comment: Speci men Type: TISSUE SPECIMENOrdering Facility: [facility] Address: [address] [place] [address] Result Comment: A. H ernia sac, resection:- Benign fibroadipose tissue.B. Gallbladder, cholecystectomy:- Mild chronic cholecystitis. Performed By: #### S ####[facility] LABCLIA [id number] [place] [address] [place] FINAL PERFORMING LAB Normal [facility] Comment on above: Order Comment: Speci men Type: TISSUE SPECIMENOrdering Facility: [facility] Address: [address] [place] [address] Result Comment: Diag nostic interpretation performed at: [facility], [address] [place] [address] CLIA# [id number] Director: Rosales Quintana MD Performed By: #### S ####[facility] LABCLIA [id number] [place] [address] [place] GROSS DESCRIPTION A. Hernia Sac Normal [facility] Comment on above: Order Comment: Speci men Type: TISSUE SPECIMENOrdering Facility: [facility] Address: [address] [place] [address] Result Comment: Rece ived in formalin, labeled [...] The cystic duct margin (en face) and route service representative sections of the gallbladder wall are submitted in B1.ANUSHA September 20, 2024 3:38 PMGross examination performed at [facility], [address] [place] [address] Performed By: #### S ####[facility] LABCLIA [id number] [place] [address] [place] Chest without Contraston Chest without Contrast [facility] [address] [place] [address] Chest without Contrast MR#: [id number] Acct: [id number] Name: LAUREN ALCARAZ Rep #: [id number] : 1940 F 84 From: Gunnar Carrero MD PCP: Dr. Chema Perry MD Status: REG ER Study: Chest without Contrast Date of Exam: 09/18/24 Exam# [id number] Ordering Dr: Susan Emery DO PROCEDURE: CHEST [...] use of iterative reconstruction technique). Reading [facility] CC: Dr. Susan Emery DO; Dr. Chema Perry MD Scallop Shucker: Signed Normal [facility] Emergency Department Summary on 09-18-2024 Emergency Department Summary [facility] Medical Records Department [address] [place] [address] Emergency Department Summary 09/18/24 MR#: [id number] Acct: [id number] Name: LAUREN ALCARAZ Rep #: [id number] : 1940 84 From: Susan Emery DO [...] breath. Pain is worse with movement. PFSH [facility] Medical History Open wound of right lower [...] artery ( 1989) Atherosclerotic heart disease of [place] coronary artery without angina pectoris Essential hypertension [...] denosumab 60 mg/mL subcutaneous 60 mg subcut [id number] #1 mL Unknown Rx syringe (Prolia) BD [...] Rx vortiox (more content not included)... Normal [facility] CBC W Auto Differential pane l (Bld)on 09-14-2024 Basophils (Bld) [#/Vol] 10*3/uL Normal <0.11 [facility] Comment on above: Order Comment: Speci men Type: BLOOD SPECIMENOrdering Facility: [facility] Address: [address] [place] [address] Performed By: #### 5 7021-8 ####[facility] [id number] [place] [address] [place] Basophils/100 WBC (Bld) 0.2 % Normal [facility] Comment on above: Order Comment: Speci men Type: BLOOD SPECIMENOrdering Facility: [facility] Address: [address] [place] [address] Performed By: #### 5 7021-8 ####[facility] [id number] [place] [address] [place] Differential cell count method Nom (Bld) Auto Normal [facility] Comment on above: Order Comment: Speci men Type: BLOOD SPECIMENOrdering Facility: [facility] Address: [address] [place] [address] Performed By: #### 5 7021-8 ####[facility] [id number] [place] [address] [place] Eosinophils (Bld) [#/Vol] 0.10 10*3/uL Normal <0.46 [facility] Comment on above: Order Comment: Speci men Type: BLOOD SPECIMENOrdering Facility: [facility] Address: [address] [place] [address] Performed By: #### 5 7021-8 ####[facility] [id number] [place] [address] [place] Eosinophils/100 WBC (Bld) 1.8 % Normal [facility] Comment on above: Order Comment: Speci men Type: BLOOD SPECIMENOrdering Facility: [facility] Address: [address] [place] [address] Performed By: #### 5 7021-8 ####[facility]INGSMORIAHStacy [id number] [place] [address] [place] Erythrocyte distribution width (RBC) [Ratio] 14.1 % Normal 11.5-15.0 [facility] Comment on above: Order Comment: Speci men Type: BLOOD SPECIMENOrdering Facility: [facility] Address: [address] [place] [address] Performed By: #### 5 7021-8 ####[facility] [id number] [place] [address] [place] Hematocrit (Bld) [Volume fraction] 34.6 % Low 36.0-46.0 [facility] Comment on above: Order Comment: Speci men Type: BLOOD SPECIMENOrdering Facility: [facility] Address: [address] [place] [address] Performed By: #### 5 7021-8 ####[facility] SPRINGSNCL[facility] [id number] [place] [address] [place] Hemoglobin (Bld) [Mass/Vol] 11.2 g/dL Low 11.5-15.5 [facility] Comment on above: Order Comment: Speci men Type: BLOOD SPECIMENOrdering Facility: [facility] Address: [address] [place] [address] Performed By: #### 5 7021-8 ####[facility] [id number] [place] [address] [place] Immature granulocytes (Bld) [#/Vol] 10*3/uL Normal <0.10 [facility] Comment on above: Order Comment: Speci men Type: BLOOD SPECIMENOrdering Facility: [facility] Address: [address] [place] [address] Performed By: #### 5 7021-8 ####[facility] [id number] [place] [address] [place] Immature granulocytes/100 WBC (Bld) 0.2 % Normal [facility] Comment on above: Order Comment: Speci men Type: BLOOD SPECIMENOrdering Facility: [facility] Address: [address] [place] [address] Performed By: #### 5 7021-8 ####[facility] [id number] [place] [address] [place] Lymphocytes (Bld) [#/Vol] 1.92 10*3/uL Normal 1.00-4.00 [facility] Comment on above: Order Comment: Speci men Type: BLOOD SPECIMENOrdering Facility: [facility] Address: [address] [place] [address] Performed By: #### 5 7021-8 ####[facility] [id number] [place] [address] [place] Lymphocytes/100 WBC (Bld) 35.0 % Normal [facility] Comment on above: Order Comment: Speci men Type: BLOOD SPECIMENOrdering Facility: [facility] Address: [address] [place] [address] Performed By: #### 5 7021-8 ####[facility] MILLWNCLIA [id number] [place] [address] [place] [facility] MCH (RBC) [Entitic mass] 29.4 pg Normal 26.0-34.0 [facility] Comment on above: Order Comment: Speci men Type: BLOOD SPECIMENOrdering Facility: [facility] Address: [address] [place] [address] Performed By: #### 5 7021-8 ####[facility] SPRINGSNCL[facility] [id number] [place] [address] [place] MCHC (RBC) [Mass/Vol] 32.4 g/dL Normal 30.5-36.0 [facility] Comment on above: Order Comment: Speci men Type: BLOOD SPECIMENOrdering Facility: [facility] Address: [address] [place] [address] Performed By: #### 5 7021-8 ####[facility] [id number] [place] [address] [place] MCV (RBC) [Entitic vol] 90.8 fL Normal 80.0-100.0 [facility] Comment on above: Order Comment: Speci men Type: BLOOD SPECIMENOrdering Facility: [facility] Address: [address] [place] [address] Performed By: #### 5 7021-8 ####[facility]CL[facility] [id number] [place] [address] [place] Monocytes (Bld) [#/Vol] 0.43 10*3/uL Normal <0.87 [facility] Comment on above: Order Comment: Speci men Type: BLOOD SPECIMENOrdering Facility: [facility] Address: [address] [place] [address] Performed By: #### 5 7021-8 ####[facility] [id number] [place] [address] [place] Monocytes/100 WBC (Bld) 7.8 % Normal [facility] Comment on above: Order Comment: Speci men Type: BLOOD SPECIMENOrdering Facility: [facility] Address: [address] [place] [address] Performed By: #### 5 7021-8 ####[facility] [id number] [place] [address] [place] Neutrophils (Bld) [#/Vol] 3.01 10*3/uL Normal 1.45-7.50 [facility] Comment on above: Order Comment: Speci men Type: BLOOD SPECIMENOrdering Facility: [facility] Address: [address] [place] [address] Performed By: #### 5 7021-8 ####[facility] [id number] [place] [address] [place] Neutrophils/100 WBC (Bld) 55.0 % Normal [facility] Comment on above: Order Comment: Speci men Type: BLOOD SPECIMENOrdering Facility: [facility] Address: [address] [place] [address] Performed By: #### 5 7021-8 ####[facility] [id number] [place] [address] [place] Nucleated RBC (Bld) [#/Vol] 10*3/uL Normal <0.01 [facility] Comment on above: Order Comment: Speci men Type: BLOOD SPECIMENOrdering Facility: [facility] Address: [address] [place] [address] Performed By: #### 5 7021-8 ####[facility] [id number] [place] [address] [place] Nucleated RBC/100 WBC (Bld) [Ratio] 0.0 /100 WBC Normal [facility] Comment on above: Order Comment: Speci men Type: BLOOD SPECIMENOrdering Facility: [facility] Address: [address] [place] [address] Performed By: #### 5 7021-8 ####[facility] RAFITA ISANCJESUS [id number] [place] [address] [place] Platelet mean volume (Bld) [Entitic vol] 10.1 fL Normal 9.0-12.7 [facility] Comment on above: Order Comment: Speci men Type: BLOOD SPECIMENOrdering Facility: [facility] Address: [address] [place] [address] Performed By: #### 5 7021-8 ####[facility] SPRINGSNCJESUS [id number] [place] [address] [place] Platelets (Bld) [#/Vol] 148 10*3/uL Low 150-400 [facility] Comment on above: Order Comment: Speci men Type: BLOOD SPECIMENOrdering Facility: [facility] Address: [address] [place] [address] Performed By: #### 5 7021-8 ####[facility] SPRINGSNCLIA [id number] [place] [address] [place] RBC (Bld) [#/Vol] 3.81 10*6/uL Low 3.90-5.20 [facility] Comment on above: Order Comment: Speci men Type: BLOOD SPECIMENOrdering Facility: [facility] Address: [address] [place] [address] Performed By: #### 5 7021-8 ####[facility]INGSNCLIA [id number] [place] [address] [place] WBC (Bld) [#/Vol] 5.48 10*3/uL Normal 3.70-11.00 [facility] Comment on above: Order Comment: Speci men Type: BLOOD SPECIMENOrdering Facility: [facility] Address: [address] [place] [address] Performed By: #### 5 7021-8 ####[facility] HOSPITALWNCLIA [id number] [place] [address] [place] CONFIRM BLOOD TYPEon 025 ABO A Normal [facility] Comment on above: Order Comment: Speci men Type: BLOOD SPECIMENOrdering Facility: [facility] Address: [address] [place] [address] Performed By: #### C ONABO ####CC MAIN BLOOD BANKCLIA [id number] [place] [address] [place] Rh Nom (Bld) Positive Normal [facility] Comment on above: Order Comment: Speci men Type: BLOOD SPECIMENOrdering Facility: [facility] Address: [address] [place] [address] Performed By: #### C ONABO ####CC MAIN BLOOD BANKCLIA [id number] [place] [address] [place] Comprehensive metabolic 2000 panelon 09-14-2024 Albumin [Mass/Vol] 3.9 g/dL Normal 3.9-4.9 [facility] Comment on above: Order Comment: Speci men Type: BLOOD SPECIMENOrdering Facility: [facility] Address: [address] [place] [address] Performed By: #### 2 4323-8 ####[facility] HOSPITALWNCLIA [id number] [place] [address] [place] ALP [Catalytic activity/Vol] 66 U/L Normal 34-123 [facility] Comment on above: Order Comment: Speci men Type: BLOOD SPECIMENOrdering Facility: [facility] Address: [address] [place] [address] Performed By: #### 2 4323-8 ####[facility] HOSPITALWNCLIA [id number] [place] [address] [place] ALT [Catalytic activity/Vol] 15 U/L Normal 7-38 [facility] Comment on above: Order Comment: Speci men Type: BLOOD SPECIMENOrdering Facility: [facility] Address: [address] [place] [address] Performed By: #### 2 4323-8 ####[facility] RAFITA MILLWNCLIA [id number] [place] [address] [place] Anion gap [Moles/Vol] 7 mmol/L Low 8-15 [facility] Comment on above: Order Comment: Speci men Type: BLOOD SPECIMENOrdering Facility: [facility] Address: [address] [place] [address] Performed By: #### 2 4323-8 ####[facility] HOS[facility]ITALLIA [id number] [place] [address] [place] AST [Catalytic activity/Vol] 20 U/L Normal 13-35 [facility] Comment on above: Order Comment: Speci men Type: BLOOD SPECIMENOrdering Facility: [facility] Address: [address] [place] [address] Performed By: #### 2 4323-8 ####[facility] SPRINGSNCLIA [id number] [place] [address] [place] Bilirubin [Mass/Vol] 0.3 mg/dL Normal 0.2-1.3 [facility] Comment on above: Order Comment: Speci men Type: BLOOD SPECIMENOrdering Facility: [facility] Address: [address] [place] [address] Performed By: #### 2 4323-8 ####[facility] HOS[facility]ITALL[facility] [id number] [place] [address] [place] Calcium [Mass/Vol] 9.3 mg/dL Normal 8.5-10.2 [facility] Comment on above: Order Comment: Speci men Type: BLOOD SPECIMENOrdering Facility: [facility] Address: [address] [place] [address] Performed By: #### 2 4323-8 ####[facility] SPRINGSNCLIA [id number] [place] [address] [place] Chloride [Moles/Vol] 106 mmol/L Normal 98-107 [facility] Comment on above: Order Comment: Speci men Type: BLOOD SPECIMENOrdering Facility: [facility] Address: [address] [place] [address] Performed By: #### 2 4323-8 ####[facility] [id number] [place] [address] [place] CO2 [Moles/Vol] 27 mmol/L Normal 22-30 [facility] Comment on above: Order Comment: Speci men Type: BLOOD SPECIMENOrdering Facility: [facility] Address: [address] [place] [address] Performed By: #### 2 4323-8 ####[facility] HOSPITALLIA [id number] [place] [address] [place] Creatinine [Mass/Vol] 0.99 mg/dL High 0.58-0.96 [facility] Comment on above: Order Comment: Speci men Type: BLOOD SPECIMENOrdering Facility: [facility] Address: [address] [place] [address] Performed By: #### 2 4323-8 ####[facility] HOSPITALLIA [id number] [place] [address] [place] Creatinine and Glomerular filtration rate.predicted panel (S/P/Bld) 57 mL/min/1.73m??? Low >=60 [facility] Comment on above: Order Comment: Speci men Type: BLOOD SPECIMENOrdering Facility: [facility] Address: [address] [place] [address] Result Comment: Brandy mated Glomerular Filtration Rate [...] actual GFR. Performed By: #### 2 4323-8 ####[facility] SPRINGSMORIAHLIStacy [id number] [place] [address] [place] Glucose [Mass/Vol] 92 mg/dL Normal 74-99 [facility] Comment on above: Order Comment: Ramirez gamez Type: BLOOD SPECIMENOrdering Facility: [facility] Address: [address] [place] [address] Result Comment: The [place] Diabetes Association (ADA) provides guidance for cutoff [...] Standards of Medical Care in Diabetes 2016, [place] [employer]. Diabetes Care. 2016.39(Suppl 1). Performed By: #### 2 4323-8 ####[facility] [id number] [place] [address] [place] Potassium [Moles/Vol] 4.1 mmol/L Normal 3.7-5.1 [facility] Comment on above: Order Comment: Ramirez agmez Type: BLOOD SPECIMENOrdering Facility: [facility] Address: [address] [place] [id number] Performed By: #### 2 4323-8 ####[facility] SPRINGSNCLIStacy [id number] [place] [address] [place] Protein [Mass/Vol] 6.4 g/dL Normal 6.3-8.0 [facility] Comment on above: Order Comment: Speci men Type: BLOOD SPECIMENOrdering Facility: [facility] Address: [address] [place] [address] Performed By: #### 2 4323-8 ####[facility] HOSPITALWILLIA [id number] [place] [address] [place] Sodium [Moles/Vol] 140 mmol/L Normal 136-144 [facility] Comment on above: Order Comment: Speci men Type: BLOOD SPECIMENOrdering Facility: [facility] Address: [address] [place] [address] Performed By: #### 2 4323-8 ####[facility] [id number] [place] [address] [place] Urea nitrogen [Mass/Vol] 34 mg/dL High 7- [facility] Comment on above: Order Comment: Speci men Type: BLOOD SPECIMENOrdering Facility: [facility] Address: [address] [place] [address] Performed By: #### 2 4323-8 ####[facility] [id number] [place] [address] [place] HISTORY PHYSICALon HISTORY PHYSICAL Normal [facility] LIPID PANEL, NONFASTINGon Cholesterol [Mass/Vol] 137 mg/dL Normal <200 [facility] Comment on above: Order Comment: Speci men Type: BLOOD SPECIMENOrdering Facility: [facility] Address: [address] [place] [address] Result Comment: <200 mg/dL, Desirable 200-239 mg/dL, Borderline high>239 mg/dL, High Performed By: #### L IPNF ####[facility] LABCLIA [id number] [facility]DES[facility] [id number] [address] [place] HDL CHOLESTEROL, NF 63 mg/dL Normal >39 [facility] Comment on above: Order Comment: Speci men Type: BLOOD SPECIMENOrdering Facility: [facility] Address: [address] [place] [address] Result Comment: 40-5 9 mg/dL, Acceptable>59 mg/dL, High: Negative risk factor for coronary heart disease<40 mg/dL, Low: Positive risk factor for coronary heart disease Performed By: #### L IPNF ####[facility] LABCLIA [id number] [address] LDL CHOLESTEROL, NF 61 mg/dL Normal <100 [facility] Comment on above: Order Comment: Corinei franco Type: BLOOD SPECIMENOrdering Facility: [facility] Address: [address] [place] [address] Result Comment: <100 mg/dL, Optimal 100-129 mg/dL, Near optimal/above optimal 130-159 mg/dL, Borderline high 160-189 mg/dL, High>189 mg/dL, Very highSecondary prevention optimal LDL Cholesterol levels are recommended to be < 70 mg/dL Performed By: #### L IPNF ####[facility] LABCLIA [id number] [address] LDL/HDL RATIO, NF 0.97 mg/dL Normal <2.54 [facility] Comment on above: Order Comment: Corinehakeem gamez Type: BLOOD SPECIMENOrdering Facility: [facility] Address: [address] [place] [address] Result Comment: Refe rence:1. National Cholesterol Education Program ATP III Guideline At-A-Glance Quick Desk Reference: National Heart, Lung, and Blood [place]. National Institutes of Health. 2001: NIH Publication No. 01-3305.2. An International Atherosclerosis Society position paper: global recommendations for the management of dyslipidemia: executive summary, Atherosclerosis. 2014: 232(2):410-413. Performed By: #### L IPNF ####[facility] LABCLIA [id number] [address] [place] NON HDL CHOL, NF 74 mg/dL Normal <130 [facility] Comment on above: Order Comment: Speci men Type: BLOOD SPECIMENOrdering Facility: [facility] Address: [address] [place] [address] Result Comment: <130 mg/dL, Optimal 130-159 mg/dL, Near optimal/above optimal 160-189 mg/dL, Borderline high 190-219 mg/dL, High>219 mg/dL, Very highSecondary prevention optimal non HDL Cholesterol levels are recommended to be <100 mg/dL Performed By: #### L IPNF ####[facility] LABCLIA [id number] [place] [address] [place] T CHOL/HDL RATIO NF 2.17 mg/dL Normal <5.10 [facility] Comment on above: Order Comment: Speci men Type: BLOOD SPECIMENOrdering Facility: [facility] Address: [address] [place] [address] Performed By: #### L IPNF ####[facility] LABCLIA [id number] [place] [address] [place] TRIGLYCERIDES, NF 65 mg/dL Normal <150 [facility] Comment on above: Order Comment: Speci men Type: BLOOD SPECIMENOrdering Facility: [facility] Address: [address] [place] [address] Result Comment: <150 mg/dL, Normal 150-199 mg/dL, Borderline high 200-499 mg/dL, High>499 mg/dL, Very high Performed By: #### L IPNF ####[facility] LABCLIA [id number] [place] [address] [place] VLDL CHOLESTEROL, NF 13 mg/dL Normal <30 [facility] Comment on above: Order Comment: Speci men Type: BLOOD SPECIMENOrdering Facility: [facility] Address: [address] [place] [address] Performed By: #### L IPNF ####[facility] LABCLIA [id number] [place] [address] [place] TYPE AND SCREEN,30 DAYon ABO A Normal [facility] Comment on above: Order Comment: Speci men Type: BLOOD SPECIMENOrdering Facility: [facility] Address: [address] [place] [address] Performed By: #### T SCR30 ####CC MAIN BLOOD BANKCLIA [id number] [place] [address] [place] Rh Nom (Bld) Positive Normal [facility] Comment on above: Order Comment: Speci men Type: BLOOD SPECIMENOrdering Facility: [facility] Address: [address] [place] [address] Performed By: #### T SCR30 ####CC MAIN BLOOD BANKCLIA [id number] [place] [address] [place] ANES POSTPROC EVALon 025 ANES POSTPROC EVAL Normal [facility] ANES PRE-OPon 09-13-2024 ANES PRE-OP Normal [facility] EGD Study observation Narrat iveon 09-13-2024 [facility] Radiology Study observation (narrative) [facility] ERCPon 09-13-2024 ERCP Normal [facility] ERCP Study observation Narra tiveon 09-13-2024 [facility] Radiology Study observation (narrative) [facility] HISTORY PHYSICALon HISTORY PHYSICAL Normal [facility] NURSING PROGon 09-13-2024 NURSING PROG Normal [facility] NURSING PROG Normal [facility] NURSING PROG Normal [facility] [place] 09-13-2024 Upper [place] Normal [facility] EMG(NEURO/NI)on 09-10-2024 Results can be seen in attached scanned documents. If you are a patient reviewing this test result, call the doctor who ordered the test with any questions. [facility] CNPNon 09-09-2024 CNPN Normal [facility] CNPNon 09-08-2024 CNPN Normal [facility] [...] Lower chest: Unremarkable. DIVISION [facility] * * *Final Report* [...] be communicated with the ordering provider via [employer] staff message or phone message by [employer] within 2 business days of report finalization. --END OF FINDING-- Scallop Shucker: ARTHUR Transcribe Date/Time: Sep 07 2024 10:32A Dictated by : VON COLES DO This examination was interpreted and the report reviewed and electronically signed by: PIA DAVEY MD on Sep 07 2024 3:23PM EST [facility] MR Unspecified body region 3 D post processingon 09-07-2024 * * *Final Report* * * DATE OF EXAM: Sep 07 2024 9:50AM [facility] 0280 - MRI 3D POST PROCESSING / [...] Lower chest: Unremarkable. DIVISION OF RADIOLOGY Provider, [facility] - 09/07/2024 * * *Final Report* * * DATE OF EXAM: Sep 07 2024 9:50AM [facility] 0280 - MRI 3D POST PROCESSING / [...] be communicated with the ordering provider via [employer] staff message or phone message by [facility] [employer] within 2 business days of report finalization. --END OF FINDING-- Scallop Shucker: ARTHUR Transcribe Date/Time: Sep 07 2024 10:32A Dictated by : VON COLES, DO This examination was interpreted and the report reviewed and electronically signed by: PIA DAVEY MD on Sep 07 2024 3:23PM EST [facility] MRI 3D POST PROCESSINGon MRI 3D POST PROCESSING Invalid Interpretation Code [facility] MRI PANC/MAGNOLIA WO/W IVCONon MRI PANC/MAGNOLIA WO/W IVCON Invalid Interpretation Code [facility] No Panel InformationOrdered By: Ccf Provider on 09-07-2024 Interpretation and review of laboratory results Abnormal [facility] Radiology Result ACTIONABLE Abnormal [facility] Comment on above: This report contains [...] contact your provider for the next steps. [facility] No Panel Informationon 09-07 IMPRESSION: Persistent [...] be communicated with the ordering provider via [employer] staff message or phone message by [facility] within 2 business days of report finalization. --END OF FINDING-- Scallop Shucker: ARTHUR Transcribe Date/Time: Sep 07 2024 10:32A Dictated by : VON COLES, DO This examination was interpreted and the report reviewed and electronically signed by: PIA DAVEY MD on Sep 07 2024 3:23PM EST DIVISION OF RADIOLOGY Radiology Study observation (narrative) [facility] CNPNon 09-06-2024 CNPN Normal [facility] CNCNPATEDon 09-03-2024 CNCNPATED Normal [facility] CNOVon 09-03-2024 CNOV Normal [facility] HISTORY PHYSICALon HISTORY PHYSICAL Normal [facility] CNPNon 08-25-2024 CNPN Normal [facility] US CAROTID ARTERIES MAGNOLIA VAS LABon 08-25-2024 US CAROTID ARTERIES MAGNOLIA VAS LAB Normal [facility] CBC panel Auto (Bld)on 08-09 Erythrocyte distribution width (RBC) [Ratio] 13.9 % Normal 11.5-15.0 [facility] Comment on above: Order Comment: Speci men Type: BLOOD SPECIMENOrdering Facility: [facility] Address: [address] [place] [address] Performed By: #### 5 8410-2 ####[facility] LABCLIA [id number] [place] [address] [place] Hematocrit (Bld) [Volume fraction] 38.9 % Normal 36.0-46.0 [facility] Comment on above: Order Comment: Speci men Type: BLOOD SPECIMENOrdering Facility: [facility] Address: [address] [place] [address] Performed By: #### 5 8410-2 ####[facility] LABIA [id number] [place] [address] [place] Hemoglobin (Bld) [Mass/Vol] 12.3 g/dL Normal 11.5-15.5 [facility] Comment on above: Order Comment: Speci men Type: BLOOD SPECIMENOrdering Facility: [facility] Address: [address] [place] [address] Performed By: #### 5 8410-2 ####[facility] LABCLIA [id number] [place] [address] [place] MCH (RBC) [Entitic mass] 29.6 pg Normal 26.0-34.0 [facility] Comment on above: Order Comment: Speci men Type: BLOOD SPECIMENOrdering Facility: [facility] Address: [address] [place] [address] Performed By: #### 5 8410-2 ####[facility] LABIA [id number] [place] [address] [place] MCHC (RBC) [Mass/Vol] 31.6 g/dL Normal 30.5-36.0 [facility] Comment on above: Order Comment: Speci men Type: BLOOD SPECIMENOrdering Facility: [facility] Address: [address] [place] [address] Performed By: #### 5 8410-2 ####[facility] LABCLIA [id number] [place] [address] [place] MCV (RBC) [Entitic vol] 93.7 fL Normal 80.0-100.0 [facility] Comment on above: Order Comment: Speci men Type: BLOOD SPECIMENOrdering Facility: [facility] Address: [address] [place] [address] Performed By: #### 5 8410-2 ####[facility] LABCLIA [id number] [place] [address] [place] Nucleated RBC (Bld) [#/Vol] 10*3/uL Normal <0.01 [facility] Comment on above: Order Comment: Speci men Type: BLOOD SPECIMENOrdering Facility: [facility] Address: [address] [place] [address] Performed By: #### 5 8410-2 ####[facility] LABCLIA [id number] [place] [address] [place] Platelet mean volume (Bld) [Entitic vol] 10.4 fL Normal 9.0-12.7 [facility] Comment on above: Order Comment: Speci men Type: BLOOD SPECIMENOrdering Facility: [facility] Address: [address] [place] [address] Performed By: #### 5 8410-2 ####[facility] LABCLIA [id number] [place] [address] [place] Platelets (Bld) [#/Vol] 210 10*3/uL Normal 150-400 [facility] Comment on above: Order Comment: Speci men Type: BLOOD SPECIMENOrdering Facility: [facility] Address: [address] [place] [address] Performed By: #### 5 8410-2 ####[facility] LABIA [id number] [place] [address] [place] RBC (Bld) [#/Vol] 4.15 10*6/uL Normal 3.90-5.20 [facility] Comment on above: Order Comment: Speci men Type: BLOOD SPECIMENOrdering Facility: [facility] Address: [address] [place] [address] Performed By: #### 5 8410-2 ####[facility] LABIA [id number] [place] [address] [place] WBC (Bld) [#/Vol] 5.66 10*3/uL Normal 3.70-11.00 [facility] Comment on above: Order Comment: Speci men Type: BLOOD SPECIMENOrdering Facility: [facility] Address: [address] [place] [address] Performed By: #### 5 8410-2 ####[facility] LABIA [id number] [place] [address] [place] Comprehensive metabolic 2000 panelon 08-09-2024 Albumin [Mass/Vol] 3.7 g/dL Low 3.9-4.9 [facility] Comment on above: Order Comment: Speci men Type: BLOOD SPECIMENOrdering Facility: [facility] Address: [address] [place] [address] Performed By: #### 2 4323-8 ####[facility] LABIA [id number] [place] [address] [place] ALP [Catalytic activity/Vol] 70 U/L Normal 34-123 [facility] Comment on above: Order Comment: Speci men Type: BLOOD SPECIMENOrdering Facility: [facility] Address: [address] [place] [address] Performed By: #### 2 4323-8 ####[facility] LABCLIA [id number] [facility] [place] [id number] [place] ALT [Catalytic activity/Vol] 19 U/L Normal 7-38 [facility] Comment on above: Order Comment: Speci men Type: BLOOD SPECIMENOrdering Facility: [facility] Address: [address] [place] [address] Performed By: #### 2 4323-8 ####[facility] LABCLIA [id number] [place] [address] [place] Anion gap [Moles/Vol] 12 mmol/L Normal 8-15 [facility] Comment on above: Order Comment: Speci men Type: BLOOD SPECIMENOrdering Facility: [facility] Address: [address] [place] [address] Performed By: #### 2 4323-8 ####[facility] LABCLIA [id number] [place] [address] [place] AST [Catalytic activity/Vol] 29 U/L Normal 13-35 [facility] Comment on above: Order Comment: Speci men Type: BLOOD SPECIMENOrdering Facility: [facility] Address: [address] [place] [address] Performed By: #### 2 4323-8 ####[facility] LABCLIA [id number] [place] [address] [place] Bilirubin [Mass/Vol] 0.4 mg/dL Normal 0.2-1.3 [facility] Comment on above: Order Comment: Speci men Type: BLOOD SPECIMENOrdering Facility: [facility] Address: [address] [place] [address] Performed By: #### 2 4323-8 ####[facility] LABCLIA [id number] [place] [id number] [place] Calcium [Mass/Vol] 9.0 mg/dL Normal 8.5-10.2 [facility] Comment on above: Order Comment: Speci men Type: BLOOD SPECIMENOrdering Facility: [facility] Address: [address] [place] [address] Performed By: #### 2 4323-8 ####[facility] LABCLIA [id number] [place] [address] [place] Chloride [Moles/Vol] 104 mmol/L Normal 98-107 [facility] Comment on above: Order Comment: Speci men Type: BLOOD SPECIMENOrdering Facility: [facility] Address: [address] [place] [address] Performed By: #### 2 4323-8 ####[facility] LABCLIA [id number] [place] [address] [place] CO2 [Moles/Vol] 23 mmol/L Normal 22-30 [facility] Comment on above: Order Comment: Speci men Type: BLOOD SPECIMENOrdering Facility: [facility] Address: [address] [place] [address] Performed By: #### 2 4323-8 ####[facility] LABCLIA [id number] [place] [address] [place] Creatinine [Mass/Vol] 0.85 mg/dL Normal 0.58-0.96 [facility] Comment on above: Order Comment: Speci men Type: BLOOD SPECIMENOrdering Facility: [facility] Address: [address] [place] [address] Performed By: #### 2 4323-8 ####[facility] LABCLIA [id number] [place] [address] [place] Creatinine and Glomerular filtration rate.predicted panel (S/P/Bld) 69 mL/min/1.73m??? Normal >=60 [facility] Comment on above: Order Comment: Speci men Type: BLOOD SPECIMENOrdering Facility: [facility] Address: [address] [place] [address] Result Comment: Brandy mated Glomerular Filtration Rate [...] actual GFR. Performed By: #### 2 4323-8 ####[facility] LABCLIA [id number] [place] [address] [place] Glucose [Mass/Vol] 121 mg/dL High 74-99 [facility] Comment on above: Order Comment: Ramirez gamez Type: BLOOD SPECIMENOrdering Facility: [facility] Address: [address] [place] [address] Result Comment: The [place] Diabetes [employer] (ADA) provides guidance for cutoff [...] Standards of Medical Care in Diabetes 2016, [place] [employer]. Diabetes Care. 2016.39(Suppl 1). Performed By: #### 2 4323-8 ####[facility] LABIA [id number] [place] [id number] [place] Potassium [Moles/Vol] 4.7 mmol/L Normal 3.7-5.1 [facility] Comment on above: Order Comment: Ramirez gamez Type: BLOOD SPECIMENOrdering Facility: [facility] Address: [address] [place] [address] Performed By: #### 2 4323-8 ####[facility] LABIA [id number] [address] [address] [place] Protein [Mass/Vol] 6.5 g/dL Normal 6.3-8.0 [facility] Comment on above: Order Comment: Speci men Type: BLOOD SPECIMENOrdering Facility: [facility] Address: [address] [place] [address] Performed By: #### 2 4323-8 ####[facility] LABCLIA [id number] [place] [address] [place] Sodium [Moles/Vol] 139 mmol/L Normal 136-144 [facility] Comment on above: Order Comment: Speci men Type: BLOOD SPECIMENOrdering Facility: [facility] Address: [address] [place] [address] Performed By: #### 2 4323-8 ####[facility] LABCLIA [id number] [place] [address] [place] Urea nitrogen [Mass/Vol] 20 mg/dL Normal 7-21 [facility] Comment on above: Order Comment: Speci men Type: BLOOD SPECIMENOrdering Facility: [facility] Address: [address] [place] [address] Performed By: #### 2 4323-8 ####[facility] LABCLIA [id number] [place] [address] [place] PROTEIN ELECTROPHORESIS SERU M (P)on 08-09-2024 Albumin [Mass/Vol] 3.66 g/dL Normal 3.43-5.41 [facility] Comment on above: Order Comment: Speci men Type: BLOOD SPECIMENOrdering Facility: [facility] Address: [address] [place] [address] Performed By: #### L [id number] ####[facility] LABCLIA [id number] [place] [id number] [place] Alpha 1 globulin Elph [Mass/Vol] 0.25 g/dL Normal 0.18-0.43 [facility] Comment on above: Order Comment: Speci men Type: BLOOD SPECIMENOrdering Facility: [facility] Address: [address] [place] [address] Performed By: #### L [id number] ####[facility] LABCLIA [id number] [place] [address] [place] Alpha 2 globulin Elph [Mass/Vol] 0.67 g/dL Normal 0.42-0.98 [facility] Comment on above: Order Comment: Speci men Type: BLOOD SPECIMENOrdering Facility: [facility] Address: [address] [place] [address] Performed By: #### L [id number] ####[facility] LABCLIA [id number] [place] [address] [place] Beta globulin Elph [Mass/Vol] 0.73 g/dL Normal 0.61-1.17 [facility] Comment on above: Order Comment: Speci men Type: BLOOD SPECIMENOrdering Facility: [facility] Address: [address] [place] [address] Performed By: #### L [id number] ####[facility] LABCLIA [id number] [place] [address] [place] Gamma globulin Elph [Mass/Vol] 0.89 g/dL Normal 0.53-1.51 [facility] Comment on above: Order Comment: Speci men Type: BLOOD SPECIMENOrdering Facility: [facility] Address: [address] [place] [address] Performed By: #### L [id number] ####[facility] LABCLIA [id number] [place] [address] [place] M-PROTEIN LOCATION Normal [facility] Comment on above: Order Comment: Speci men Type: BLOOD SPECIMENOrdering Facility: [facility] Address: [address] [place] [address] Result Comment: Not Applicable. Performed By: #### L [id number] ####[facility] LABCLIA [id number] [address] STATES OF [facility] Protein Fractions [Interp] No definitive M protein is identified on protein electrophoresis. Normal No definitive M protein is identified on protein electrophor esis. [facility] Comment on above: Order Comment: Speci men Type: BLOOD SPECIMENOrdering Facility: [facility] Address: [address] [place] [address] Performed By: #### L [id number] ####[facility] LABCLIA [id number] [place] [address] [place] Protein.monoclonal Elph [Mass/Vol] 0.00 g/dL Normal <=0.00 [facility] Comment on above: Order Comment: Speci men Type: BLOOD SPECIMENOrdering Facility: [facility] Address: [address] [place] [address] Performed By: #### L [id number] ####[facility] LABIA [id number] [place] [address] [place] SPE STAFF REVIEW Reviewed by Dr. Glenys Pierre MD [facility] Comment on above: Order Comment: Speci men Type: BLOOD SPECIMENOrdering Facility: [facility] Address: [address] [place] [address] Performed By: #### L [id number] ####[facility] LABIA [id number] [place] [address] [place] Prot SerPl-mCncon 08-09-2024 Protein [Mass/Vol] 6.2 g/dL Low 6.3-8.0 [facility] Comment on above: Order Comment: Speci men Type: BLOOD SPECIMENOrdering Facility: [facility] Address: [address] [place] [address] Performed By: #### 2 885-2, 2132-9 ####[facility] LABCLIA [id number] [place] [address] [place] VITAMIN B1 (THIAMINE), WHOLE BLOODon 08-09-2024 Thiamine (Bld) [Moles/Vol] 220.5 nmol/L High 84.3-213.3 [facility] Comment on above: Order Comment: Speci men Type: BLOOD SPECIMENOrdering Facility: [facility] Address: [address] [place] [address] Performed By: #### B 1WB ####[facility] LABCLIA [id number] [place] [address] [place] VITAMIN B6/PYRIDOXINon 08-09 VITAMIN B6 47.3 nmol/L Normal 20.0-125.0 [facility] Comment on above: Order Comment: Speci men Type: BLOOD SPECIMENOrdering Facility: [facility] Address: [address] [place] [address] Result Comment: INTE RPRETIVE INFORMATION: Vitamin B6 (Pyridoxal 5-Phosphate)Pyridoxal 5'-phosphate measured in a specimen collected followingan 8-hour or overnight fast accurately indicates vitamin L2rdukhjbpnyn status. Non-fasting specimen concentration reflectsrecent vitamin intake.This test was developed and its performance characteristicsdetermined by [employer]. It has not been cleared orapproved by the [place] Food and Drug Administration. This test wasperformed in a CLIA certified laboratory and is intended forclinical purposes.Performed By: [employer] [employer] [place] [id number] Director: Estelle Bravo MD, PhDCLIA Number: [id number] Performed By: #### V ITB6 ####[facility] [id number] [place] [address] Vit B12 SerPl-mCncon 024 Cobalamin (Vitamin B12) [Mass/Vol] 1662 pg/mL High 232-1245 [facility] Comment on above: Order Comment: Speci men Type: BLOOD SPECIMENOrdering Facility: [facility] Address: [address] [place] [address] Performed By: #### 2 885-2, 2132-9 ####[facility] LABCLIA [id number] [place] [address] [place] CNOVon 08-06-2024 CNOV Normal [facility] CNOVon 08-03-2024 CNOV Normal [facility] ECG COMPLETEon 08-03-2024 Atrial Rate 75 BPM [facility] Calculated P [place] 42 degrees [facility] Calculated R [place] -38 degrees [facility] Calculated T [place] 49 degrees [facility] P-R Interval 188 ms [facility] QRS Duration 78 ms [facility] QT Interval 402 ms [facility] QTC Calculation (Bazett) 448 ms [facility] Ventricular Rate 75 BPM [facility] NAME : HUYEN ALCARAZ PID : [id number] : 1940 Gender : Female Race : ORD : [id number] Procedure Date : Aug 03 2024 15:41:45 Edit Date : Aug 03 2024 16:15:10 Diagnosis: NORMAL SINUS RHYTHM LEFT AXIS DEVIATION POOR R WAVE PROGRESSION INFERIOR MYOCARDIAL INFARCTION , AGE UNDETERMINED ABNORMAL ECG Confirmed by MD MARCIAL QARAB ([id number]), online content editor TONYA IVEY ([id number]) on 08/03/2024 4:15:08 PM Test Reason : I25.2 H/O acute myocardial infarction Location : 137 : STCARD Overread By : MD MARCIAL QARAB Edited By : TONYA IVEY Referred By : ANILA DE PAZ Acquired by : , [facility] ECG COMPLETE Normal [facility] ANES POSTPROC EVALon 024 ANES POSTPROC EVAL Normal [facility] ANES PRE-OPon 07-21-2024 ANES PRE-OP Normal [facility] EGD Study observation Narrat iveon 07-21-2024 [facility] Radiology Study observation (narrative) [facility] NURSING PROGon 07-21-2024 NURSING PROG Normal [facility] NURSING PROG Normal [facility] Upper GI endoscopyon 024 Upper GI endoscopy Normal [facility] CNPNon 07-19-2024 CNPN Normal [facility] Knee 4 or More Viewson 07-19 Knee 4 or More Views [facility] [address] [place] [address] Knee 4 or More Views MR#: [id number] Acct: [id number] Name: LAUREN ALCARAZ Rep #: [id number] : 1940 F 83 From: Ezio East MD PCP: Status: DEP AMB Study: Knee 4 or More Views Date of Exam: 07/19/24 Exam# [id number] Ordering Dr: Christopher Turk DO [id number] STUDY: X-RAY - LEFT KNEE REASON FOR [...] EST , CC: Dr. Christopher Turk DO Scallop Shucker: Signed Normal [facility] Orthopedic Visit Reporton Orthopedic Visit Report [facility] [address] [place] [address] OFFICE VISIT Date of Service: 07/19/24 MR#: [id number] Acct: [id number] Name: LAUREN ALCARAZ Rep #: [id number] : 1940 Provider: Dr. Christopher chan DO Age/Sex: 83/F Location: [facility] Status: Signed Intake Vital Signs 06/07/24 08:51 [...] denosumab 60 mg/mL subcutaneous 60 mg subcut [id number] #1 mL 02/18/24 07/19/24 Rx syringe (Prolia) [...] you fallen in the past year?: No [facility] Medical History Open wound of right lower [...] artery ( 1989) Atherosclerotic heart disease of [place] coronary artery without angina pectoris Essential hypertension Influenza A Health care maintenance Fa (more content not included)... Normal [facility] HISTORY PHYSICALon HISTORY PHYSICAL Normal [facility] CNPNon 07-14-2024 CNPN Normal [facility] Orthopedic Visit Reporton Orthopedic Visit Report [facility] [address] [place] [address] OFFICE VISIT Date of Service: 07/12/24 MR#: [id number] Acct: [id number] Name: LAUREN ALCARAZ Rep #: [id number] : 1940 Provider: Dr. Christopher chan DO Age/Sex: 83/F Location: [facility] Status: Signed Intake Vital Signs 06/07/24 08:51 [...] denosumab 60 mg/mL subcutaneous 60 mg subcut [id number] #1 mL 02/18/24 07/12/24 Rx syringe (Prolia) [...] artery ( 1989) Atherosclerotic heart disease of [place] coronary artery without angina pectoris Essential hypertension Influenza A Health care maintenance Falls frequently Cancer Depression Dementia Walker as ambulation aid Arthritis Bladder disease Low iron DVT (deep venous thrombosis) High cholesterol Restless legs Back pain TIA (transient ischemic attack) Seizures Difficulty swallowing Gastric reflux Non-smoker Asthma Shortness of breath on exertion Hx of echocardiogram Hist (more content not included)... Normal [facility] CNPNon 07-07-2024 CNPN Normal [facility] MR/BMS.IMBon 07-07-2024 MR/BMS.IMB [facility] [address] [place] [address] OFFICE VISIT Date of Service: 07/07/24 MR#: [id number] Acct: [id number] Name: LAUREN ALCARAZ Rep #: [id number] : 1940 Provider: Dr. Chema williamson MD Age/Sex: 83/F Location: [facility] Status: Signed Intake Vital Signs 06/07/24 [...] Reasons: Surgery Clearance Chief Complaint: surgery clearance Layer Off Required: No Accompanied by: Self Is patient [...] denosumab 60 mg/mL subcutaneous 60 mg subcut [id number] #1 mL 02/18/24 07/07/24 Rx syringe (Prolia) [...] fallen in the past year?: Yes (06/28/2024) [facility] Medical History Open wound of right lower [...] artery ( 1989) Atherosclerotic heart disease of [place] coronary artery without angina pectoris Essential hypertension Influenza A Health care maintenance Falls fr (more content not included)... Normal [facility] Orthopedic Visit Reporton Orthopedic Visit Report [facility] [address] [place] [address] [address] [place] [address] OFFICE VISIT Date of Service: 07/05/24 MR#: [id number] Acct: [id number] Name: LAUREN ALCARAZ Rep #: [id number] : 1940 Provider: Dr. Christopher chan DO Age/Sex: 83/F Location: [facility] Status: Signed Intake Vital Signs 06/07/24 08:51 [...] denosumab 60 mg/mL subcutaneous 60 mg subcut [id number] #1 mL 02/18/24 07/05/24 Rx syringe (Prolia) [...] you fallen in the past year?: Yes [facility] Medical History Open wound of right lower [...] artery ( 1989) Atherosclerotic heart disease of [place] coronary artery without angina pectoris Essential hypertension Influenza A Health care maintenance Falls frequently Cancer Depression Dementia Walker as ambulation aid Arthritis Bladder disease Low iron DVT (deep venous thrombosis) High cholesterol Restless legs Back pain TIA (transient ischemic attack) Seizures Difficulty swallowing Gastric reflux Non-smoker Asthma Shortness of breath on exertion (more content not included)... Normal [facility] CNOVon 07-01-2024 CNOV Normal [facility] CT ABD/PEL W IVCONon 024 CT ABD/PEL W IVCON Normal [facility] CT Abdomen and Pelvis W cont rast Chava 06-24-2024 IMPRESSION: Large hiatal hernia. Dilated pancreatic duct and marked dilation of the common bile duct to the level of the ampulla. Possible filling defect within the distal CBD. Consider MRCP to exclude ampullary mass/choledocholithiasis. Scallop Shucker: ATRHUR Transcribe Date/Time: Jun 24 2024 4:00P Dictated by : STEPHANIE VIZCAINO MD This examination was interpreted and the report reviewed and electronically signed by: STEPHANIE VIZCAINO MD on Jun 24 2024 4:14PM [facility] DIVISION OF RADIOLOGY * * *Final Report* * * DATE OF EXAM: Jun 24 2024 3:12PM [facility] 0530 - CT ABD/PEL W IVCON [...] No additional findings. DIVISION OF RADIOLOGY Provider, [facility] - 06/24/2024 * * *Final Report* * * DATE OF EXAM: Jun 24 2024 3:12PM [facility] 0530 - CT ABD/PEL W IVCON [...] CBD. Consider MRCP to exclude ampullary mass/choledocholithiasis. Scallop Shucker: ARTHUR Transcribe Date/Time: Jun 24 2024 4:00P Dictated by : STEPHANIE VIZCAINO MD This examination was interpreted and the report reviewed and electronically signed by: STEPHANIE VIZCAINO MD on Jun 24 2024 4:14PM EST [facility] Radiology Study observation (narrative) [facility] CT Abdomen and Pelvis W cont rast IVOrdered By: Ccf Provider on 06-24-[address] [facility] [address] CHEST W IVCONon CT CHEST W IVCON Normal [facility] Inital Evaluation (1) - PTon 06-24-2024 Inital Evaluation (1) - PT [facility] Physical Therapy [facility] [address] [place] [address]. [address] [place] [address] / REHABILITATION SERVICES INITIAL EVALUATION MR#: [id number] Acct: [id number] Name: LAUREN ALCARAZ Rep #: [id number] : 1940 83 From: Gunnar Graves PT, ATC Referring Dr.: Dr. Christopher Turk, DO Status: R EG RCR Insurance: MEDICARE PART A B [employer] [id number] [id number] Patient's Visit Information Visit Information Visit Information: [...] Pt reports she has been exercising with [employer] and [employer] for half hour sessions. Pt reports she has numbness in both of her feet which she attributes to neuropathy. Pt reports she has no stairs at home, but has used the stairs here at [facility]. Pt reports she can negotiate stairs [...] to be FAXED BACK to us at [phone] for Medicare purposes. For Medicare only, by signing this I certify the plan of care. Please let me know if there are questions or concerns regarding this plan of care. Physician Signature: Date: 06/24/24 1124 CC: Dr. Christopher Turk DO; Dr. Chema Perry MD [facility] Signed Normal [facility] CREATININE BLDon 06-23-2024 Creatinine [Mass/Vol] 0.84 mg/dL Normal 0.58-0.96 [facility] Comment on above: Order Comment: Speci men Type: BLOOD SPECIMENOrdering Facility: [facility] Address: [address] [place] [address] Performed By: #### C RET1 ####[facility] [id number] [place] [address] [place] Creatinine and Glomerular filtration rate.predicted panel (S/P/Bld) 70 mL/min/1.73m??? Normal >=60 [facility] Comment on above: Order Comment: Speci men Type: BLOOD SPECIMENOrdering Facility: [facility] Address: [address] [place], [place] [address] Result Comment: Brandy mated Glomerular Filtration Rate [...] actual GFR. Performed By: #### C RET1 ####[facility] [id number] [place] [address] [place] CNCNPATEDon 06-18-2024 CNCNPATED Normal [facility] CNOVon 06-18-2024 CNOV Normal [facility] HISTORY PHYSICALon [facility]ORY PHYSICAL [facility] CNPNon 06-17-2024 CNPN Normal [facility] Knee 4 or More Viewson 06-16 Knee 4 or More Views [facility] [address] [place] [address] Knee 4 or More Views MR#: [id number] Acct: [id number] Name: LAUREN ALCARAZ Rep #: [id number] : 1940 F 83 From: Bright Sarmiento MD PCP: Dr. Chema Perry MD Status: DEP AMB Study: Knee 4 or More Views Date of Exam: 06/16/24 Exam# [id number] Ordering Dr: Christopher Turk DO [id number] STUDY: X-RAY - RIGHT KNEE REASON FOR [...] 15:34 EDT Reading Location ID and State: [address] [place] [address] , Service support , CC: Dr. Christopher Turk DO; Dr. Chema Perry MD Scallop Shucker: Signed Normal [facility] Orthopedic Visit Reporton Orthopedic Visit Report [facility] [address] [place] [address] [address] [place] [address] OFFICE VISIT Date of Service: 06/16/24 MR#: [id number] Acct: [id number] Name: LAUREN ALCARAZ Rep #: [id number] : 1940 Provider: Dr. Christopher chan DO Age/Sex: 83/F Location: [facility] Status: Signed with Addenda ADDENDUM by Dr. [...] denosumab 60 mg/mL subcutaneous 60 mg subcut [id number] #1 mL 02/18/24 06/16/24 Rx syringe (Prolia) [...] you fallen in the past year?: Yes [facility] Medical History Open wound of right lower extremity Contusion of right foot Kyphoscoliosis deformity of spine Bee sting Lumbar contusion Contusion of thoracic wall Pain of left lower extremity Contact with and (suspected) exposure to other viral communicable diseases Contusion of left wrist Left (more content not included)... Normal [facility] Brain/Head without Contrasto n 06-07-2024 Brain/Head without Contrast [facility] Imaging Services [address] [place] [address] Brain/Head without Contrast MR#: [id number] Acct: [id number] Name: LAUREN ALCARAZ Rep #: [id number] : 1940 F 83 From: Chad Harper MD PCP: Dr. Chema Perry MD Status: REG ER Study: Brain/Head without Contrast Date of Exam: 05/19 09/10 Exam# [id number] Ordering Dr: Susan Emery DO [id number] STUDY: CT BRAIN WITHOUT CONTRAST REASON FOR [...] Susan Emery DO; Dr. Chema Perry MD Scallop Shucker: Signed Normal [facility] Emergency Department Summary on 06-07-2024 Emergency Department Summary [facility] Medical Records Department [address] [place] [address] Emergency Department Summary 06/07/24 MR#: [id number] Acct: [id number] Name: LAUREN ALCARAZ Rep #: [id number] : 1940 83 From: Susan Emery DO [...] is on apixaban. She denies neck pain. [facility] Medical History Open wound of right lower [...] artery ( 1989) Atherosclerotic heart disease of [place] coronary artery without angina pectoris Essential hypertension [...] denosumab 60 mg/mL subcutaneous 60 mg subcut [id number] #1 mL 02/18/24 Unknown Rx syringe (Prolia) [...] Rx vor (more content not included)... Normal [facility] Shoulder min 2 Viewson 06-07 Shoulder min 2 Views [facility] [address] [place] [address] Shoulder min 2 Views MR#: [id number] Acct: [id number] Name: LAUREN ALCARAZ Rep #: [id number] : 1940 F 83 From: Chad Harper MD PCP: Dr. Chema Perry MD Status: REG ER Study: Shoulder min 2 Views Date of Exam: 06/07/24 Exam# [id number] Ordering Dr: Susan Emery DO [id number] STUDY: X-RAY - LEFT SHOULDER REASON FOR [...] 9:45 EDT Reading Location ID and State: [facility] / [place] , Service support , CC: Dr. Susan Emery DO; Dr. Chema Perry MD Scallop Shucker: Signed Normal [facility] Office Visit Reporton 2023 Office Visit Report [facility] [address] [place] [address] OFFICE VISIT Date of Service: 06/05/24 MR#: [id number] Acct: [id number] Patient: LAUREN ALCARAZ Rep #: [id number] : 1940 Provider: ERIK Mckenna Age/Sex: 83/F Location: [facility] Status: Signed Intake Vital Signs 05/04/24 16:04 [...] Reasons: RASH ON BUTTOCKS Chief Complaint: rash Layer Off Required: No Is patient in pain?: No [...] denosumab 60 mg/mL subcutaneous 60 mg subcut [id number] #1 mL 02/18/24 04/22/24 Rx syringe (Prolia) [...] extremity Co (more content not included)... Normal [facility] CNOVon 05-17-2024 CNOV Normal [facility] Urgent Care Visit Reporton 0 05-04-2024 Urgent Care Visit Report [facility] [address], [address] [place] [address] OFFICE VISIT Date of Service: 05/04/24 MR#: [id number] Acct: [id number] Name: LAUREN ALCARAZ Rep #: [id number] : 1940 Provider: ERIK Dodson Age/Sex: 83/F Location: [facility] Status: Signed Intake Vital Signs 04/22/24 13:06 [...] Complaint: SEEPING WOUND ON RT LOWER EXTREMITY Layer Off Required: No Accompanied by: Is patient in [...] denosumab 60 mg/mL subcutaneous 60 mg subcut [id number] #1 mL 02/18/24 04/22/24 Rx syringe (Prolia) [...] you fallen in the past year?: No [facility] Medical History (Updated 05/04/24 @ 16:27 by Jd Gallego PA, PA) Open wound of right lower extremity Contusion of right foot Kyphoscoliosis deformity of spine Bee sting Lumbar contusion Contusion of thoracic wall Pain of left lower extremity Contact with and (suspected) exposure to ot (more content not included)... Normal [facility] OCT OPTIC NERVE CIRRUS OU (B OTH EYES)on 05-03-2024 [facility] Radiology Study observation (narrative) [facility] PT D/C Summary (1)on 024 PT D/C Summary (1) [facility] Physical [facility] [address] [place] [address] [address] [place] [address] / REHABILITATION SERVICES DISCHARGE SUMMARY MR#: [id number] Acct: [id number] Name: LAUREN ALCARAZ Rep #: [id number] : 1940 83 From: Vincent Amado DPT, OCS, CSCS Referring Dr.: Dr. Chema Perry MD Status: R EG RCR Insurance: MEDICARE PART A B [place] [id number] Discharge Summary D/C summary: It has been [...] Goal 3:: Pt have confidence in her HEP/rehab trainer ex regimen to continue to make [...] please feel free to call me at [phone]. Thank you for the referral of this patient. Sincerely, Vincent Amado, DPT, OCS, CSCS Balance/Gait/Functional tests Balance/Special Test Scores Functional Gait Assessment Score: 22 % Disability: 26.6700 CATSIB Score (Max score 120 seconds): 85 Dizziness Score: 26 30 Second Chair Rise Test Seconds: 9 Improvement % Improvement: 50 04/30/24 0819 CC: Dr. Chema Perry MD EBG Signed Normal [facility] MR/Yanni 04-22-2024 MR/BMS.MOHAMUD [facility] [address] [place] [address] OFFICE VISIT Date of Service: 04/22/24 MR#: [id number] Acct: [id number] Name: LAUREN ALCARAZ Rep #: [id number] : 1940 Provider: Dr. Chema williamson MD Age/Sex: 83/F Location: [facility] Status: Signed Intake Vital Signs 04/17/24 06:55 [...] Delivery Method room air Intake Visit Reasons: [facility] ER FU Chief Complaint: N/V Layer Off Required: No Is patient in pain?: Yes [...] denosumab 60 mg/mL subcutaneous 60 mg subcut Z5RYJAGD #1 mL 02/18/24 04/22/24 Rx syringe (Prolia) [...] you fallen in the past year?: No [facility] Medical History Contusion of right foot Kyphoscoliosis deformity of spine Bee sting Lumbar contusion Contusion of thoracic wall Pain of left lower extremity Contact with and (suspected) exposure to other viral communicable diseases Contusion of left wrist Left elbow contusion Contusion of left shoulder Scalp contusion Injury of left elbow Injury of left s (more content not included)... Normal [facility] Office Visit Reporton 2023 Office Visit Report [facility] Services [address] [place] [address] OFFICE VISIT Date of Service: 04/19/24 MR#: [id number] Acct: [id number] Patient: LAUREN ALCARAZ Rep #: [id number] : 1940 Provider: ERIK Mckenna Age/Sex: 83/F Location: [facility] Status: Signed Intake Vital Signs 04/17/24 06:55 04/19/24 11:11 Height 4 ft 8 in Weight: 103 lb BP 140/68 H Blood Pressure Location Rt brachial Position Sitting Respiration 16 Pulse 72 Pulse Source NIBP Temp 98.1 F Temp Source Temporal Pulse Oximetry (%) 93 Oxygen Delivery Method room air Intake Visit Reasons: NAUSEA/VOMITING Chief Complaint: N/V Layer Off Required: No Is patient in pain?: No [...] help. wants RX for different shingles med. [facility] Medical History Contusion of right foot Kyphoscoliosis [...] artery ( 1989) Atherosclerotic heart disease of [place] coronary artery without angina pectoris Essential hypertension [...] History of appendectomy H/O kyphoplasty Family History (Reviewed 04/05/24 @ 14:39 by Sandra Vincent SALES AND LEASING CONSULTANT, SALES AND LEASING CONSULTANT-C) Mother CVA (cerebral vascular accident) Arthritis Father [...] above) Ex (more content not included)... Normal [facility] Emergency Department Summary on 04-17-2024 Emergency Department Summary [facility] Medical Records Department [address] [place] [address] Emergency Department Summary 04/17/24 MR#: [id number] Acct: [id number] Name: LAUREN ALCARAZ Rep #: [id number] : 1940 83 From: Vincent Morris DO [...] vomiting. Patient denies any paresthesias or weakness. [facility] Medical History Contusion of right foot Kyphoscoliosis [...] artery ( 1989) Atherosclerotic heart disease of [place] coronary artery without angina pectoris Essential hypertension [...] denosumab 60 mg/mL subcutaneous 60 mg subcut X2NARZTV #1 mL 02/18/24 Unknown Rx syringe (Prolia) [...] mcg/mL i (more content not included)... Normal [facility] Pulmonary Visit Reporton Pulmonary Visit Report [facility] [place] [address] [place] [address] OFFICE VISIT Date of Service: 04/05/24 MR#: [id number] Acct: [id number] Name: LAUREN ALCARAZ Rep #: [id number] : 1940 Provider: BURAK Vincent Age/Sex: 83/F Location: [facility] Status: Signed Assessment and Plan Assessment and [...] uncomplicated Plan Details Follow Up: 6 Months ([facility]) HPI 6 M FU Chief Complaint: [...] 6 M FU Chief Complaint: b12 injection Layer Off Required: No DME Vendor: [employer] Accompanied [...] 04/05/24 Hi (more content not included)... Normal [facility] Re-Evaluation - PT (1)on Re-Evaluation - PT (1) [facility] Physical Therapy [facility] [address] [place] [address] / REEVALUATION / MEDICARE RECERTIFICATION PHYSICAL THERAPY MR#: [id number] Acct: [id number] Name: LAUREN ALCARAZ Rep #: [id number] : 1940 83 From: Vincent Amado DPT, OCS, CSCS Referring Dr.: Dr. Chema Perry MD Status:REG RCR Insurance: MEDICARE PART A B [place] [id number] Re-Evaluation Intro: Dr. Chema Perry MD, It [...] she goes without walker in the house. [facility] won't address it. Dr. Perry does not [...] to I HEP / exercises with the rehab trainer. Plan Plan Plan: weekly x 4 then every other week x 4 weeks til end may to ensure smooth trasntion to HEp and rehab trainer. Please focus on weight shifting adn LE strength progression in therapy. Therapist to chat with rehab trainer with pt approval and work to a full rehab trainer program. New goal set with fair [...] Goal 3:: Pt have confidence in her HEP/rehab trainer ex regimen to continue to make [...] do not hesitate to contact me at [phone] by phone or if you have questions or concerns regarding this new plan of care! Sincerely, Vincent Amado, RYANT, OCS, CSCS 04/02/24 2379 CC: Dr. Chema Perry MD EBG Signed For Medicare only, by signing this I certify the plan of care. _ Physicians Signature Date Normal [facility] Office Visit Reporton 2023 Office Visit Report [facility] [address] [place] [address] OFFICE VISIT Date of Service: 04/01/24 MR#: [id number] Acct: [id number] Patient: LAUREN ALCARAZ Rep #: [id number] : 1940 Provider: IMB NURSE Age/Sex: 83/F Location: [facility] Status: Signed Intake Vital Signs 02/11/24 15:30 [...] denosumab 60 mg/mL subcutaneous 60 mg subcut Z1SEHTPZ #1 mL 02/18/24 04/01/24 Rx syringe (Prolia) [...] Performing Provider: Chema Perry MD Performing Location: [facility] Administered by: Dottie Cannon on 04/01/24 10:13 Dose Route Admin Location Dispensed Lot Number Expiration Date [facility] ufacturer 1,000 mcg IM Right deltoid 1 mL [id number] 06/18/25 53457-848-15 [employer] Comments: Patient provided medication. Patient [...] Date ___ (more content not included)... Normal [facility] CNOVon 03-25-2024 CNOV Normal [facility] Basic Metabolic Profile (BMP )on 03-18-2024 BUN/CRE 24.5 RATIO High 10-20 [facility] Comment on above: Performed By: #### L 500.2500 ####[facility] [address] [place], [address] CA,Total 9.3 mg/dL Normal 8.5-10.1 [facility] Comment on above: Performed By: #### L 500.2500 ####[facility] [address] [place], [address] Chloride [Moles/Vol] 105 mmol/L Normal 98-107 [facility] Comment on above: Performed By: #### L 500.2500 ####[facility] [address] [place], [address] CO2 [Moles/Vol] 28.0 mmol/L Normal 21.0-32.0 [facility] Comment on above: Performed By: #### L 500.2500 ####[facility] [address] [place], [address] Creatinine [Mass/Vol] 1.06 mg/dL High 0.55-1.02 [facility] Comment on above: Result Comment: The validity of the calculated GFR GFRAA in patients over 70 years has not been determined. Clinical correlation is essential. Performed By: #### L 500.2500 ####[facility] [address] [place], [address] EST GFR - AA 64 mL/min Normal >60 [facility] Comment on above: Result Comment: Afri can Bangladeshi GFR Calc Performed By: #### L 500.2500 ####[facility] [address] [place], [address] GAP 5 Normal 5-15 [facility] Comment on above: Performed By: #### L 500.2500 ####[facility] [address] [place], [address] GFR/1.73 sq M.predicted among non-blacks MDRD (S/P/Bld) [Vol rate/Area] 53 mL/min/{1.73_m2} Low >60 [facility] Comment on above: Result Comment: Non- GFR Calc Performed By: #### L 500.2500 ####[facility] [address] [place], [address] Glucose [Mass/Vol] 133 mg/dL High 74-106 [facility] Comment on above: Result Comment: Fast ing Glucose result greater than or equal to 126 mg/dL suggests DIABETES MELLITUS per A.D.A. criteria. Performed By: #### L 500.2500 ####[facility] [address] [place], [address] Potassium [Moles/Vol] 4.2 mmol/L Normal 3.5-5.1 [facility] Comment on above: Performed By: #### L 500.2500 ####[facility] [address] [place], [address] Sodium [Moles/Vol] 138 mmol/L Normal 136-145 [facility] Comment on above: Performed By: #### L 500.2500 ####[facility] [address] [place], [address] Urea nitrogen [Mass/Vol] 26 mg/dL High 7-18 [facility] Comment on above: Performed By: #### L 500.2500 ####[facility] [address] [place], [address] Foot min 3 Viewson 07-30-202 4 Foot min 3 Views [facility] [address] [place] [address] Foot min 3 Views MR#: [id number] Acct: [id number] Name: LAUREN ALCARAZ Rep #: [id number] : 1940 F 83 From: Sam stafford MD PCP: Dr. Chema Perry MD Status: REG CLI Study: Foot min 3 Views Date of Exam: 03/16/24 Exam# [id number] Ordering Dr: Jd Gallego PA 5:[id number] STUDY: X-RAY - RIGHT FOOT CLINICAL: Female, [...] CC: Dr. Chema Perry MD; ERIK Dodson Scallop Shucker: Signed Normal [facility] Urgent Care Visit Reporton 0 03-16-2024 Urgent Care Visit Report [facility] [address] [place] [address] OFFICE VISIT Date of Service: 03/16/24 MR#: [id number] Acct: [id number] Name: LAUREN ALCARAZ Rep #: [id number] : 1940 Provider: ERIK Dodson Age/Sex: 83/F Location: [facility] Status: Signed Intake Vital Signs 02/11/24 15:30 [...] POSSIBLE BROKEN BONE Chief Complaint: b12 injection Layer Off Required: No Is patient in pain?: Yes [...] denosumab 60 mg/mL subcutaneous 60 mg subcut [id number] #1 mL 02/18/24 03/16/24 Rx syringe (Prolia) [...] bad towards the endc of the day. [facility] Medical History (Updated 03/16/24 @ 12:05 by Jd VALENCIA, PA) Contusion of right foot Kyphoscoliosis deformity of spine Bee sting Lumbar contusion (more content not included)... Normal [facility] Re-Evaluation - PT (1)on Re-Evaluation - PT (1) [facility] Physical Therapy [facility] [address] [place] [address] / REEVALUATION / MEDICARE RECERTIFICATION PHYSICAL THERAPY MR#: [id number] Acct: [id number] Name: LAUREN ALCARAZ Rep #: [id number] : 1940 83 From: Vincent Amado DPT, OCS, CSCS Referring Dr.: Dr. Chema Perry MD Status:REG RCR Insurance: MEDICARE PART A B [place] [id number] Re-Evaluation Intro: Dr. Chema Perry MD, It has been my pleasure to treat LAUREN ALCARAZ over the last 15 visits for dizzyness. Please see the progress note below for an update on the physical therapy plan of care! Subjective Subjective: Workouts in PT are going well. Doesn't know if it is helping with steadiness but vertigo feels better. Will go to [facility] tomorrow to see landscaping specialist. Will look at [facility] scoilosis. Wondering if they can help with scoliosis being bent over. Wants breathing and steadiness to be things that can be improved with this doctor. says that she still needs lots of help with steadiness and not seeing huge improvements on that. Wants to continue via in clinic 2x/weeka nd rehab trainer 3x/week. Objective Objective/Function: Pt has poor [...] do not hesitate to contact me at [phone] by phone or if you have questions or concerns regarding this new plan of care! Sincerely, Vincent Amado, RYANT, OCS, CSCS 03/04/24 1348 CC: Dr. Chema Perry MD EBG Signed For Medicare only, by signing this I certify the plan of care. _ Physicians Signature Date Normal [facility] Office Visit Reporton 2023 Office Visit Report [facility] [address] [place] [address] OFFICE VISIT Date of Service: 02/23/24 MR#: [id number] Acct: [id number] Patient: LAUREN ALCARAZ Rep #: [id number] : 1940 Provider: MOHAMUD NURSE Age/Sex: 83/F Location: [facility] Status: Signed Intake Vital Signs 02/11/24 15:30 [...] Performing Provider: Chema Perry MD Performing Location: [facility] Administered by: Josselin Kat MA on 02/23/24 11:02 Dose Route Admin Location Dispensed Lot Number Expiration Date NDC Man ufacturer 1,000 mcg IM right delt 1 mL [id number] 06/18/25 72652-425-78 [employer] Comments: PT TOLERATED WELL. Assessment and Plan Assessment and Plan (1) Vitamin B 12 deficiency: Status: Acute Orders: Orders Vitamin B12 Today E53.8 - Deficiency of other specified B group vitamins Clinical Quality Measures Falls Risk Screening/Assistive Devices Have you fallen in the past year?: No 02/23/24 1548 Date Chema Luna Signature: Date (if applicable) CC: Normal [facility] Miscellaneous Lab Procedureo n 02-16-2024 MISC LAB TEST Normal [facility] Comment on above: Order Comment: Comme nts: SE antibodies [facility]:[id number] SER/RTGAD [id number] SER/RT Result Comment: TEST RESULTS LIMITS SE-65 Autoantibody SE-65 <5.0 U/mL 0.0-5.0 TESTING PERFORMED AT [facility]. ORIGINAL REPORT ON FILE IN LAB CONTAINS ADDITIONAL TEST SITE INFORMATION. Performed By: #### L 506.0400, L801.1541, L503.0105, L501.9520, L501.49096, L500.4050 ####[facility] [address] [place], [address] Comprehensive Metabolic Prof ilon 02-12-2024 Albumin [Mass/Vol] 3.7 g/dL Normal 3.2-5.0 [facility] Comment on above: Order Comment: SE a ntibodies [facility]:[id number] Performed By: #### L 506.0400, L801.1541, L503.0105, L501.9520, L501.07461, L500.4050 ####[facility] [address] [place], [address] Albumin/Globulin [Mass ratio] 1.1 {ratio} Normal 0.9-2.4 [facility] Comment on above: Order Comment: SE a ntibodies [facility]:[id number] Performed By: #### L 506.0400, L801.1541, L503.0105, L501.9520, L501.62034, L500.4050 ####[facility] [address] [place], [address] ALK P 76 U/L Normal 45-117 [facility] Comment on above: Order Comment: SE a ntibodies [facility]:[id number] Performed By: #### L 506.0400, L801.1541, L503.0105, L501.9520, L501.08184, L500.4050 ####[facility] [address] [place], [address] ALT [Catalytic activity/Vol] 31 U/L Normal 13-56 [facility] Comment on above: Order Comment: SE a ntibodies [facility]:[id number] Performed By: #### L 506.0400, L801.1541, L503.0105, L501.9520, L501.27965, L500.4050 ####[facility] [address] [place], [address] AST [Catalytic activity/Vol] 24 U/L Normal 15-37 [facility] Comment on above: Order Comment: SE a ntibodies [facility]:[id number] Performed By: #### L 506.0400, L801.1541, L503.0105, L501.9520, L501.22968, L500.4050 ####[facility] [address] [place], [address] Bilirubin [Mass/Vol] 0.80 mg/dL Normal 0.20-1.00 [facility] Comment on above: Order Comment: SE a ntibodies [facility]:[id number] Result Comment: For patients on eltrombopag therapy, use of Dimension Dellrose TBIL is not recommended. Performed By: #### L 506.0400, L801.1541, L503.0105, L501.9520, L501.07429, L500.4050 ####[facility] [address] [place], [address] BUN/CRE 21.2 RATIO High 10-20 [facility] Comment on above: Order Comment: SE a ntibodies [facility]:[id number] Performed By: #### L 506.0400, L801.1541, L503.0105, L501.9520, L501.49255, L500.4050 ####[facility] [address] [place], [address] CA,Total 9.6 mg/dL Normal 8.5-10.1 [facility] Comment on above: Order Comment: SE a ntibodies [facility]:[id number] Performed By: #### L 506.0400, L801.1541, L503.0105, L501.9520, L501.44059, L500.4050 ####[facility] [address] [place], [address] Chloride [Moles/Vol] 103 mmol/L Normal 98-107 [facility] Comment on above: Order Comment: SE a ntibodies [facility]:[id number] Performed By: #### L 506.0400, L801.1541, L503.0105, L501.9520, L501.70960, L500.4050 ####[facility] [address] [place], [address] CO2 [Moles/Vol] 30.0 mmol/L Normal 21.0-32.0 [facility] Comment on above: Order Comment: SE snowSurf Air [facility]:[id number] Performed By: #### L 506.0400, L801.1541, L503.0105, L501.9520, L501.19439, L500.4050 ####[facility] [address] [place], [address] Creatinine [Mass/Vol] 1.13 mg/dL High 0.55-1.02 [facility] Comment on above: Order Comment: SE kumar ntibSurf Air [facility]:[id number] Result Comment: The validity of the calculated GFR GFRAA in patients over 70 years has not been determined. Clinical correlation is essential. Performed By: #### L 506.0400, L801.1541, L503.0105, L501.9520, L501.48948, L500.4050 ####[facility] [address] [place], [address] EST GFR - AA 59 mL/min Low >60 [facility] Comment on above: Order Comment: SE kumar ntibSurf Air [facility]:[id number] Result Comment: Afri can Bangladeshi GFR Calc Performed By: #### L 506.0400, L801.1541, L503.0105, L501.9520, L501.07737, L500.4050 ####[facility] [address] [place], [address] GAP 7 Normal 5-15 [facility] Comment on above: Order Comment: SE kumar ntibSurf Air [facility]:[id number] Performed By: #### L 506.0400, L801.1541, L503.0105, L501.9520, L501.78835, L500.4050 ####[facility] [address] [place], [address] GFR/1.73 sq M.predicted among non-blacks MDRD (S/P/Bld) [Vol rate/Area] 49 mL/min/{1.73_m2} Low >60 [facility] Comment on above: Order Comment: SE snowSurf Air [facility]:[id number] Result Comment: Non- GFR Calc Performed By: #### L 506.0400, L801.1541, L503.0105, L501.9520, L501.80381, L500.4050 ####[facility] [address] [place], [address] Globulin (S) [Mass/Vol] 3.5 g/dL Normal 2.2-4.2 [facility] Comment on above: Order Comment: SE [employer] [facility]:[id number] Performed By: #### L 506.0400, L801.1541, L503.0105, L501.9520, L501.97058, L500.4050 ####[facility] [address] [place], [address] Glucose [Mass/Vol] 106 mg/dL Normal 74-106 [facility] Comment on above: Order Comment: SE [employer] [facility]:[id number] Result Comment: Fast ing Glucose result from 100 to 125 mg/dL suggests IMPAIRED HOMEOSTASIS per A.D.A. criteria. Performed By: #### L 506.0400, L801.1541, L503.0105, L501.9520, L501.10126, L500.4050 ####[facility] [address] [place], [address] Potassium [Moles/Vol] 3.6 mmol/L Normal 3.5-5.1 [facility] Comment on above: Order Comment: SE [employer] [facility]:[id number] Performed By: #### L 506.0400, L801.1541, L503.0105, L501.9520, L501.87730, L500.4050 ####[facility] [address] [place], [address] Sodium [Moles/Vol] 140 mmol/L Normal 136-145 [facility] Comment on above: Order Comment: SE a ntibodies [facility]:[id number] Performed By: #### L 506.0400, L801.1541, L503.0105, L501.9520, L501.05001, L500.4050 ####[facility] [address] [place], [address] T PROT 7.2 g/dL Normal 6.4-8.2 [facility] Comment on above: Order Comment: SE a ntibodies [facility]:[id number] Performed By: #### L 506.0400, L801.1541, L503.0105, L501.9520, L501.61818, L500.4050 ####[facility] [address] [place], [address] Urea nitrogen [Mass/Vol] 24 mg/dL High 7-18 [facility] Comment on above: Order Comment: SE a ntibodies [facility]:[id number] Performed By: #### L 506.0400, L801.1541, L503.0105, L501.9520, L501.33393, L500.4050 ####[facility] [address] [place], [address] Free T3on 02-12-2024 Free T3 [Mass/Vol] 1.8 pg/mL Low 2.18-3.98 [facility] Comment on above: Order Comment: SE a ntibodies [facility]:[id number] Performed By: #### L 506.0400, L801.1541, L503.0105, L501.9520, L501.14106, L500.4050 ####[facility] [address] [place], [address] T4 Free Directon 02-12-2024 T4 FREE DIRECT 1.12 ng/dL Normal 0.76-1.46 [facility] Comment on above: Order Comment: SE a ntibodies [facility]:[id number] Performed By: #### L 506.0400, L801.1541, L503.0105, L501.9520, L501.38610, L500.4050 ####[facility] [address] [place], [place], [address] Thyroid Stim Hormone (TSH)on 02-12-2024 TSH 1.45 uIU/mL Normal 0.358-3.74 [facility] Comment on above: Order Comment: SE a ntibodies [facility]:[id number] Performed By: #### L 506.0400, L801.1541, L503.0105, L501.9520, L501.32468, L500.4050 ####[facility] [address] [place], [place], [address] Vitamin B12on 02-12-2024 Cobalamin (Vitamin B12) [Mass/Vol] 1092 pg/mL High 211-911 [facility] Comment on above: Performed By: #### L 506.0400, L801.1541, L503.0105, L501.9520, L501.24568, L500.4050 ####[facility] [address] [place], [place], [address] /Yanni 02-11-2024 MR/BMS.[facility] [address] [place], [place] [address] OFFICE VISIT Date of Service: 02/11/24 MR#: [id number] Acct: [id number] Name: LAUREN ALCARAZ Rep #: [id number] : 1940 Provider: Dr. Chema williamson MD Age/Sex: 83/F Location: [facility] Status: Signed Intake Vital Signs 08/13/23 [...] 6 M FU Chief Complaint: 6m f/u Layer Off Required: No Accompanied by: Self Is patient [...] denosumab 60 mg/mL subcutaneous 60 mg subcut [id number] #1 mL 02/05/23 02/11/24 Rx syringe (Prolia) [...] you fallen in the past year?: Yes [facility] Medical History (Updated 02/12/24 @ 08:53 by [...] artery ( 1989) Atherosclerotic heart disease of [place] coronary artery without angina pectoris Essential hypertension [...] Hypertension Cardio (more content not included)... Normal [facility] No Panel InformationOrdered By: Chema Perry on 10-14-2023 Free Triiodothyronine (T3) pg/dL 1.8 pg/mL 2.18-3.98 [facility] Serum or plasma thyroid stim ulating hormone (TSH) measurement (units/volume)Ordered By: Chema Perry on 10-14-2023 TSH Qn 1.27 uIU/mL 0.358-3.74 [facility] Thin prep Papanicolaou smear with manual screeningOrdered By: Chema Perry on 10-14-2023 Thin prep Papanicolaou smear with manual screening 1.20 ng/dL 0.76-1.46 [facility] Laboratory - Chemistry and C hemistry - challengeOrdered By: Chema Perry on 04-22-2023 Free T4 [Mass/Vol] 1.33 ng/dL 0.76-1.46 [facility] No Panel InformationOrdered By: Chema Perry on 04-22-2023 Free Triiodothyronine (T3) pg/dL 1.9 pg/mL 2.18-3.98 [facility] Thyroid Stimulating Hormone (TSH) 3.33 uIU/mL 0.358-3.74 [facility] Laboratory - Chemistry and C hemistry - challengeOrdered By: Dr. Perry on 01-15-2023 Free T4 [Mass/Vol] 1.10 ng/dL 0.76-1.46 [facility] No Panel InformationOrdered By: Dr. Perry on 01-15-2023 Free Triiodothyronine (T3) pg/dL 1.7 pg/mL 2.18-3.98 [facility] Thyroid Stimulating Hormone (TSH) 1.63 uIU/mL 0.358-3.74 [facility] MR Brain WO contraston 12-04 * * *Final Report* * * DATE OF EXAM: Dec 04 2022 2:13PM [facility] 3015 - MRI BRAIN W QUANT [...] dementia protocol and 3-D post-processing using the [employer] software at an independent workstation with concurrent physician supervision and images were created, reviewed and archived. MQ: [id number] COMPARISON: None RESULT: QUALITATIVE: Acute Intracranial Process: None. Chronic Intracranial Process: Moderate chronic microvascular ischemic change.. Age related white matter changes ([facility]) rating: White matter lesions: 2 Basal ganglia [...] Luis Manuel 2010). DIVISION OF RADIOLOGY Provider, [facility] - 12/04/2022 * * *Final Report* * * DATE OF EXAM: Dec 04 2022 2:13PM [facility] 3015 - MRI BRAIN W QUANT [...] dementia protocol and 3-D post-processing using the [employer] software at an independent workstation with concurrent [...] = Focal Lesions 2 = Beginning of [place] 3 = Diffuse Involvement of Entire Region [...] results from the analysis charts for details. Scallop Shucker: ARTHUR Transcribe Date/Time: Dec 04 2022 2:45P Dictated by : SUSAN LOMELI MD This examination was interpreted and the report reviewed and electronically signed by: SUSAN LOMELI MD on Dec 04 2022 3:20PM [facility] MR Unspecified body region 3 D post processingon 12-04-2022 * * *Final Report* * * DATE OF EXAM: Dec 04 2022 2:13PM [facility] 0280 - MRI 3D POST PROCESSING [...] dementia protocol and 3-D post-processing using the [employer] software at an independent workstation with concurrent [...] Luis Manuel 2010). DIVISION OF RADIOLOGY Provider, [facility] - 12/04/2022 * * *Final Report* * * DATE OF EXAM: Dec 04 2022 2:13PM [facility] 0280 - MRI 3D POST PROCESSING [...] dementia protocol and 3-D post-processing using the [employer] software at an independent workstation with concurrent [...] = Focal Lesions 2 = Beginning of [place] 3 = Diffuse Involvement of Entire Region [...] results from the analysis charts for details. Scallop Shucker: ARTHUR Transcribe Date/Time: Dec 04 2022 2:45P Dictated by : SUSAN LOMELI MD This examination was interpreted and the report reviewed and electronically signed by: SUSAN LOMELI MD on Dec 04 2022 3:20PM EST [facility] No Panel Informationon 12-04 IMPRESSION: * [...] = Focal Lesions 2 = Beginning of [place] 3 = Diffuse Involvement of Entire Region [...] results from the analysis charts for details. Scallop Shucker: ARTHUR Transcribe Date/Time: Dec 04 2022 2:45P Dictated by : SUSAN LOMELI MD This examination was interpreted and the report reviewed and electronically signed by: SUSAN LOMELI MD on Dec 04 2022 3:20PM EST DIVISION OF RADIOLOGY Radiology Study observation (narrative) [facility] No Panel InformationOrdered By: Ccf Provider on 12-04-2022 [facility] Absolute lymphocyte countOrd ered By: Dr. Perry on 12-03-2022 Lymphocytes Auto (Unsp spec) [#/Vol] 1.62 10*3/uL 0.83-4.51 [facility] Basophil percentageOrdered B y: Dr. Perry on 12-03-2022 Basophils/100 WBC (Bld) 0.7 % 0-1 [facility] Bilirubin [Mass/Vol] 0.60 mg/dL 0.20-1.00 [facility] Comment on above: For patients on eltr ombopag therapy, use of Dimension Dellrose TBIL is not recommended. Chloride [Moles/Vol] 107 mmol/L 98-107 [facility] Cholesterol [Mass/Vol] 124 mg/dL <200 [facility] Comment on above: <200 mg/dL Desirable 200-240 mg/dL Borderline >240 mg/dL High Risk Eosinophils/100 WBC (Bld) 3.0 % 0-5 [facility] Glucose [Mass/Vol] 101 mg/dL 74-106 [facility] Comment on above: Fasting Glucose resu lt from 100 to 125 mg/dL suggests IMPAIRED HOMEOSTASIS per A.D.A. criteria. Neutrophils (Bld) [#/Vol] 3.5 10*3/uL 2.0-7.7 [facility] Neutrophils/100 WBC (Bld) 61.8 % 47-70 [facility] Potassium [Moles/Vol] 3.7 mmol/L 3.5-5.1 [facility] Protein [Mass/Vol] 7.1 g/dL 6.4-8.2 [facility] Sodium [Moles/Vol] 137 mmol/L 136-145 [facility] Triglyceride [Mass/Vol] 132 mg/dL <199 [facility] Comment on above: The drugs N-Acetylcy steine and Metamizole may falsely depress this assay.Serum Triglycerides Reference Interval Normal <150 mg/dL Borderline high 150 - 199 mg/dL High 200 - 499 mg/dL Very High > or = 500 mg/dL WBC (Bld) [#/Vol] 5.7 10*3/uL 4.4-11.0 [facility] Blood erythrocytes count (nu mber/volume)Ordered By: Dr. Perry on 12-03-2022 RBC (Bld) [#/Vol] 4.50 10*6/uL 4.2-5.4 [facility] Blood hemoglobin measurement (mass/volume)Ordered By: Dr. Perry on 12-03-2022 Hemoglobin (Bld) [Mass/Vol] 12.1 g/dL 12.0-15.0 [facility] Blood lymphocytes/100 leukoc ytesOrdered By: Dr. Perry on 12-03-2022 Lymphocytes/100 WBC (Bld) 28.5 % 19-41 [facility] Blood monocytes/100 leukocyt esOrdered By: Dr. Perry on 12-03-2022 Monocytes/100 WBC (Bld) 5.8 % 0-10 [facility] Blood platelet mean volumeOr dered By: Dr. Perry on 12-03-2022 Platelet mean volume (Bld) [Entitic vol] 10.2 fL 6.2-12.0 [facility] Determination of erythrocyte mean corpuscular volume (MCV)Ordered By: Dr. Perry on 12-03-2022 MCV (RBC) [Entitic vol] 86.0 fL 81-99 [facility] Hematocrit Auto (Bld) [Volum e fraction]Ordered By: Dr. Perry on 12-03-2022 Hematocrit (Bld) [Volume fraction] 38.7 % 37-47 [facility] Laboratory - Chemistry and C hemistry - challengeOrdered By: Dr. Perry on 12-03-2022 ALP [Catalytic activity/Vol] 70 U/L 45-117 [facility] ALT [Catalytic activity/Vol] 24 U/L 13-56 [facility] CO2 [Moles/Vol] 25.0 mmol/L 21.0-32.0 [facility] Cobalamin (Vitamin B12) [Mass/Vol] 1344 pg/mL 211-911 [facility] Free T4 [Mass/Vol] 1.23 ng/dL 0.76-1.46 [facility] Globulin (S) [Mass/Vol] 3.5 g/dL 2.2-4.2 [facility] Urea nitrogen/Creatinine [Mass ratio] 25.5 mg/mg 10-20 [facility] Laboratory - Hematology and Cell countsOrdered By: Dr. Perry on 12-03-2022 Erythrocyte distribution width (RBC) [Entitic vol] 51.3 fL 35.1-43.9 [facility] Erythrocyte distribution width (RBC) [Ratio] 16.1 % 11.6-14.6 [facility] Immature granulocytes/100 WBC (Bld) 0.200 % 0.0-0.9 [facility] Comment on above: IG% - Immature Granu locytes (promyelocytes, myelocytes and metamyelocytes) > 1% indicates that a LEFT SHIFT is Present. MCH (RBC) [Entitic mass] 26.9 pg 27.0-32.0 [facility] Nucleated RBC/100 WBC (Bld) [Ratio] 0 % 0-5 [facility] MCHC Auto (RBC) [Mass/Vol]Or dered By: Dr. Perry on 12-03-2022 MCHC (RBC) [Mass/Vol] 31.3 g/dL 32-36 [facility] No Panel InformationOrdered By: Dr. Perry on 12-03-2022 Estimated GFR (MDRD) Amer 86 mL/min >60 [facility] Comment on above: GFR Calc Estimated GFR (MDRD) Non-Af Amer 71 mL/min >60 [facility] Comment on above: Non- GFR Calc Free Triiodothyronine (T3) pg/dL 1.9 pg/mL 2.18-3.98 [facility] Thyroid Stimulating Hormone (TSH) 5.10 uIU/mL 0.358-3.74 [facility] Vitamin D 25-Hydroxy 54.4 ng/mL [facility] Comment on above: Vitamin D 25(OH) Sta tus Range Deficiency <20 ng/mL (50nmol/L) Insufficiency 20 - 30 ng/mL (50 - 75 nmol/L) Sufficiency 30 - 100 ng/mL (75 - 250 nmol/L) Toxicity >100 ng/mL (>250 nmol/L) Platelets bldOrdered By: Dr. Perry on 12-03-2022 Platelets (Bld) [#/Vol] 244 10*3/uL 150-450 [facility] Serum or plasma albumin osiris urement (mass/volume)Ordered By: Dr. Perry on 12-03-2022 Albumin [Mass/Vol] 3.6 g/dL 3.2-5.0 [facility] Serum or plasma albumin/glob ulin mass ratioOrdered By: Dr. Perry on 12-03-2022 Albumin/Globulin [Mass ratio] 1.0 {ratio} 0.9-2.4 [facility] Serum or plasma calcium osiris urement (mass/volume)Ordered By: Dr. Perry on 12-03-2022 Calcium [Mass/Vol] 8.7 mg/dL 8.5-10.1 [facility] Serum or plasma cholesterol in HDL measurement (mass/volume)Ordered By: Dr. Perry on 12-03-2022 Cholesterol in HDL [Mass/Vol] 42 mg/dL >40 [facility] Comment on above: The drugs N-Acetylcy steine and Metamizole may falsely depress this assay. Reference Range HDL <40 mg/dL Low HDL Cholesterol HDL >or= 60 mg/dL High HDL Cholesterol Serum or plasma cholesterol in VLDL measurement (mass/volume)Ordered By: Dr. Perry on 12-03-2022 Cholesterol in VLDL [Mass/Vol] 26 mg/dL 5-40 [facility] Serum or plasma creatinine m easurement (mass/volume)Ordered By: Dr. Perry on 12-03-2022 Creatinine [Mass/Vol] 0.82 mg/dL 0.55-1.02 [facility] Comment on above: The validity of the calculated GFR & GFRAA in patients over 70 years has not been determined. Clinical correlation is essential. Serum or plasma low density lipoprotein (LDL) cholesterol measurement (mass/volume)Ordered By: Dr. Perry on 12-03-2022 Cholesterol in LDL [Mass/Vol] 56 mg/dL 0-130 [facility] Serum or plasma urea nitroge n measurement (mass/volume)Ordered By: Dr. Perry on 12-03-2022 Urea nitrogen [Mass/Vol] 21 mg/dL 7-18 [facility] Thin prep Papanicolaou smear with manual screeningOrdered By: Dr. Perry on 12-03-2022 Thin prep Papanicolaou smear with manual screening 23 U/L 15-37 [facility] Thin prep Papanicolaou smear with manual screening 5 5-15 [facility] No Panel Informationon 10-23 POC SARS CoV-2 Antigen Negative [facility] Basophil percentageOrdered B y: Dr. Perry on 07-12-2022 Basophil percentage < 0.9 mg/dL 0.55-1.02 [facility] No Panel InformationOrdered By: Dr. Perry on 07-12-2022 Bedside Estimated GFR (eGFR) > 60.0000 mL/min >60 [facility] Laboratory - Microbiology an d Antimicrobial susceptibilityon 07-07-2022 SARS-CoV-2 (COVID-19) RNA LÁZARO+probe Ql (Unsp spec) Not detected [facility] No Panel Informationon 07-07 Influenza Types A,B Rapid (Clinic) Not detected [facility] Absolute lymphocyte counton 03-07-2022 Lymphocytes Auto (Unsp spec) [#/Vol] 2.14 10*3/uL 0.83-4.51 [facility] Work Phone: Basophil percentageon 2021 Basophils/100 WBC (Bld) 0.9 % 0-1 [facility] Work Phone: [phone] Bilirubin [Mass/Vol] 0.60 mg/dL 0.20-1.00 [facility] Work Phone: Comment on above: For patients on eltr ombopag therapy, use of Dimension Dellrose TBIL is not recommended. Chloride [Moles/Vol] 108 mmol/L 98-107 [facility] Work Phone: Eosinophils/100 WBC (Bld) 2.6 % 0-5 [facility] Work Phone: Glucose [Mass/Vol] 92 mg/dL 74-106 [facility] Work Phone: Neutrophils (Bld) [#/Vol] 3.7 10*3/uL 2.0-7.7 [facility] Work Phone: Neutrophils/100 WBC (Bld) 57.3 % 47-70 [facility] Work Phone: [phone] Potassium [Moles/Vol] 4.3 mmol/L 3.5-5.1 [facility] Work Phone: Protein [Mass/Vol] 7.3 g/dL 6.4-8.2 [facility] Work Phone: Sodium [Moles/Vol] 137 mmol/L 136-145 [facility] Work Phone: WBC (Bld) [#/Vol] 6.5 10*3/uL 4.4-11.0 [facility] Work Phone: Blood erythrocytes count (nu mber/volume)on 03-07-2022 RBC (Bld) [#/Vol] 4.68 10*6/uL 4.2-5.4 [facility] Work Phone: Blood hemoglobin measurement (mass/volume)on 03-07-2022 Hemoglobin (Bld) [Mass/Vol] 13.6 g/dL 12.0-15.0 [facility] Work Phone: Blood lymphocytes/100 leukoc yteson 03-07-2022 Lymphocytes/100 WBC (Bld) 32.9 % 19-41 [facility] Work Phone: Blood monocytes/100 leukocyt eson 03-07-2022 Monocytes/100 WBC (Bld) 6.0 % 0-10 [facility] Work Phone: Blood platelet mean volumeon 03-07-2022 Platelet mean volume (Bld) [Entitic vol] 11.1 fL 6.2-12.0 [facility] Work Phone: Determination of erythrocyte mean corpuscular volume (MCV)on 03-07-2022 MCV (RBC) [Entitic vol] 89.1 fL 81-99 [facility] Work Phone: Hematocrit Auto (Bld) [Volum e fraction]on 03-07-2022 Hematocrit (Bld) [Volume fraction] 41.7 % 37-47 [facility] Work Phone: [phone] Laboratory - Chemistry and C hemistry - challengeon 03-07-2022 ALP [Catalytic activity/Vol] 74 U/L 45-117 [facility] Work Phone: ALT [Catalytic activity/Vol] 17 U/L 13-56 [facility] Work Phone: CO2 [Moles/Vol] 23.0 mmol/L 21.0-32.0 [facility] Work Phone: Globulin (S) [Mass/Vol] 3.7 g/dL 2.2-4.2 [facility] Work Phone: Urea nitrogen/Creatinine [Mass ratio] 15.7 mg/mg 10-20 [facility] Work Phone: Laboratory - Hematology and Cell countson 03-07-2022 Erythrocyte distribution width (RBC) [Entitic vol] 43.3 fL 35.1-43.9 [facility] Work Phone: Erythrocyte distribution width (RBC) [Ratio] 13.2 % 11.6-14.6 [facility] Work Phone: Immature granulocytes/100 WBC (Bld) 0.300 % 0.0-0.9 [facility] Work Phone: Comment on above: IG% - Immature Granu locytes (promyelocytes, myelocytes and metamyelocytes) > 1% indicates that a LEFT SHIFT is Present. MCH (RBC) [Entitic mass] 29.1 pg 27.0-32.0 [facility] Work Phone: Nucleated RBC/100 WBC (Bld) [Ratio] 0 % 0-5 [facility] Work Phone: MCHC Auto (RBC) [Mass/Vol]on 03-07-2022 MCHC (RBC) [Mass/Vol] 32.6 g/dL 32-36 [facility] Work Phone: No Panel Informationon 03-07 Estimated GFR (MDRD) Amer 63 mL/min >60 [facility] Work Phone: Comment on above: GFR Calc Estimated GFR (MDRD) Non-Af Amer 52 mL/min >60 [facility] Work Phone: Comment on above: Non- GFR Calc Thyroid Stimulating Hormone (TSH) 2.09 uIU/mL 0.358-3.74 [facility] Work Phone: Vitamin D 25-Hydroxy 37.8 ng/mL [facility] Work Phone: Comment on above: Vitamin D 25(OH) Sta tus Range Deficiency <20 ng/mL (50nmol/L) Insufficiency 20 - 30 ng/mL (50 - 75 nmol/L) Sufficiency 30 - 100 ng/mL (75 - 250 nmol/L) Toxicity >100 ng/mL (>250 nmol/L) Platelets bldon 03-07-2022 Platelets (Bld) [#/Vol] 220 10*3/uL 150-450 [facility] Work Phone: Serum or plasma albumin osiris urement (mass/volume)on 03-07-2022 Albumin [Mass/Vol] 3.6 g/dL 3.2-5.0 [facility] Work Phone: Serum or plasma albumin/glob ulin mass ratioon 03-07-2022 Albumin/Globulin [Mass ratio] 1.0 {ratio} 0.9-2.4 [facility] Work Phone: Serum or plasma calcium osiris urement (mass/volume)on 03-07-2022 Calcium [Mass/Vol] 8.7 mg/dL 8.5-10.1 [facility] Work Phone: Serum or plasma creatinine m easurement (mass/volume)on 03-07-2022 Creatinine [Mass/Vol] 1.08 mg/dL 0.55-1.02 [facility] Work Phone: Comment on above: The validity of the calculated GFR & GFRAA in patients over 70 years has not been determined. Clinical correlation is essential. Serum or plasma urea nitroge n measurement (mass/volume)on 03-07-2022 Urea nitrogen [Mass/Vol] 17 mg/dL 7-18 [facility] Work Phone: Thin prep Papanicolaou smear with manual screeningon 03-07-2022 Thin prep Papanicolaou smear with manual screening 15 U/L 15-37 [facility] Work Phone: Thin prep Papanicolaou smear with manual screening 6 5-15 [facility] Work Phone: No Panel Informationon 02-25 Homocysteine 11.6 umol/L 3.2-10.7 [facility] Work Phone: Serum or plasma methylmalona te measurement (moles/volume)on 02-25-2022 Methylmalonate [Moles/Vol] 214 nmol/L 0-378 [facility] Work Phone: Comment on above: Performed at: [address] [id number] Director: Leanna Muse MD, Phone: [phone] Absolute lymphocyte counton 02-15-2022 Lymphocytes Auto (Unsp spec) [#/Vol] 0.52 10*3/uL 0.83-4.51 [facility] Work Phone: Basophil percentageon 2021 Basophil percentage 0-5 SEEN /hpf 0-5 [facility] Work Phone: Basophils/100 WBC (Bld) 0.3 % 0-1 [facility] Work Phone: Chloride [Moles/Vol] 108 mmol/L 98-107 [facility] [facility] Work Phone: Eosinophils/100 WBC (Bld) 0.7 % 0-5 [facility] Work Phone: Glucose [Mass/Vol] 100 mg/dL 74-106 [facility] Work Phone: Comment on above: Fasting Glucose resu lt from 100 to 125 mg/dL suggests IMPAIRED HOMEOSTASIS per A.D.A. criteria. Neutrophils (Bld) [#/Vol] 4.9 10*3/uL 2.0-7.7 [facility] Work Phone: Neutrophils/100 WBC (Bld) 85.0 % 47-70 [facility] Work Phone: Potassium [Moles/Vol] 3.9 mmol/L 3.5-5.1 [facility] Work Phone: Sodium [Moles/Vol] 137 mmol/L 136-145 [facility] Work Phone: WBC (Bld) [#/Vol] 5.8 10*3/uL 4.4-11.0 [facility] Work Phone: Bilirubin Test strip Ql (U)o n 02-15-2022 Bilirubin Ql (U) Negative Negative [facility] Work Phone: Blood erythrocytes count (nu mber/volume)on 02-15-2022 RBC (Bld) [#/Vol] 4.99 10*6/uL 4.2-5.4 [facility] Work Phone: Blood hemoglobin measurement (mass/volume)on 02-15-2022 Hemoglobin (Bld) [Mass/Vol] 14.4 g/dL 12.0-15.0 [facility] Work Phone: Blood lymphocytes/100 leukoc yteson 02-15-2022 Lymphocytes/100 WBC (Bld) 8.9 % 19-41 [facility] Work Phone: Blood manual differential co mment interpretation (narrative result)on 02-15-2022 Manual differential comment Jd (Bld) [Interp] See comment [facility] Work Phone: Comment on above: LYMPHOPENIA NOTED Blood monocytes/100 leukocyt eson 02-15-2022 Monocytes/100 WBC (Bld) 4.8 % 0-10 [facility] Work Phone: Blood platelet adequacy dete ction by light microscopyon 02-15-2022 Platelets LM Ql (Bld) ADEQUATE ADEQ [facility] Work Phone: Blood platelet mean volumeon 02-15-2022 Platelet mean volume (Bld) [Entitic vol] 10.8 fL 6.2-12.0 [facility] Work Phone: Determination of erythrocyte mean corpuscular volume (MCV)on 02-15-2022 MCV (RBC) [Entitic vol] 88.2 fL 81-99 [facility] Work Phone: Hematocrit Auto (Bld) [Volum e fraction]on 02-15-2022 Hematocrit (Bld) [Volume fraction] 44.0 % 37-47 [facility] Work Phone: Ketones Test strip Ql (U)on 02-15-2022 Ketones Ql (U) Negative Negative [facility] Work Phone: Laboratory - Chemistry and C hemistry - challengeon 02-15-2022 CO2 [Moles/Vol] 22.0 mmol/L 21.0-32.0 [facility] Work Phone: Urea nitrogen/Creatinine [Mass ratio] 15.1 mg/mg 10-20 [facility] Work Phone: Laboratory - Hematology and Cell countson 02-15-2022 Erythrocyte distribution width (RBC) [Entitic vol] 41.2 fL 35.1-43.9 [facility] Work Phone: Erythrocyte distribution width (RBC) [Ratio] 12.7 % 11.6-14.6 [facility] Work Phone: Immature granulocytes/100 WBC (Bld) 0.300 % 0.0-0.9 [facility] Work Phone: Comment on above: IG% - Immature Granu locytes (promyelocytes, myelocytes and metamyelocytes) > 1% indicates that a LEFT SHIFT is Present. MCH (RBC) [Entitic mass] 28.9 pg 27.0-32.0 [facility] Work Phone: Nucleated RBC/100 WBC (Bld) [Ratio] 0 % 0-5 [facility] Work Phone: MCHC Auto (RBC) [Mass/Vol]on 02-15-2022 MCHC (RBC) [Mass/Vol] 32.7 g/dL 32-36 [facility] Work Phone: Mucus LM Ql (Urine sed)on Mucus Ql (Urine sed) 0 SEEN /hpf [facility] Work Phone: Nitrite Test strip Ql (U)on 02-15-2022 Nitrite Ql (U) Positive Negative [facility] Work Phone: No Panel Informationon 02-15 Estimated Creatinine Clearance Calc 40.33 ml/min [facility] Work Phone: Estimated GFR (MDRD) Amer 99 mL/min >60 [facility] Work Phone: Comment on above: GFR Calc Estimated GFR (MDRD) Non-Af Amer 82 mL/min >60 [facility] Work Phone: Comment on above: Non- GFR Calc Platelets bldon 02-15-2022 Platelets (Bld) [#/Vol] 169 10*3/uL 150-450 [facility] Work Phone: Protein Test strip Ql (U)on 02-15-2022 Protein Ql (U) Negative Negative [facility] Work Phone: RBC morphologyon 02-15-2022 RBC morphology finding Nom (Bld) NORM C+C NORMAL NORM C&C [facility] Work Phone: Serum or plasma calcium osiris urement (mass/volume)on 02-15-2022 Calcium [Mass/Vol] 8.1 mg/dL 8.5-10.1 [facility] Work Phone: Serum or plasma creatinine m easurement (mass/volume)on 02-15-2022 Creatinine [Mass/Vol] 0.73 mg/dL 0.55-1.02 [facility] Work Phone: Comment on above: The validity of the calculated GFR & GFRAA in patients over 70 years has not been determined. Clinical correlation is essential. Serum or plasma urea nitroge n measurement (mass/volume)on 02-15-2022 Urea nitrogen [Mass/Vol] 11 mg/dL 7-18 [facility] Work Phone: Squamous epithelial cells de tection in urine sediment by light microscopyon 02-15-2022 Epithelial cells.squamous LM Ql (Urine sed) 0 SEEN /hpf 5-10 [facility] Work Phone: Thin prep Papanicolaou smear with manual screeningon 02-15-2022 Thin prep Papanicolaou smear with manual screening 7 5-15 [facility] Work Phone: Urine blood detectionon 07-0 RBC Ql (U) 25 /ul Negative [facility] Work Phone: RBC Ql (U) 0 SEEN /hpf 0-5 [facility] Work Phone: Urine clarityon 02-15-2022 Clarity (U) Clear Clear [facility] Work Phone: Urine color determinationon 02-15-2022 Color (U) Yellow Yellow [facility] Work Phone: Urine glucose detectionon Glucose Ql (U) Normal mg/dl Normal [facility] Work Phone: Urine leukocyte esterase det ection by dipstickon 02-15-2022 Leukocyte esterase Test strip Ql (U) 25 /ul Negative [facility] Work Phone: Urine pHon 02-15-2022 pH (U) 6.0 [pH] 5.0 - 8.0 [facility] Work Phone: Urine sediment bacteria coun t by microscopy (number/high power field)on 02-15-2022 Bacteria LM.HPF (Urine sed) [#/Area] 2 /[HPF] None Seen [facility] Work Phone: Urine specific gravity measu rementon 02-15-2022 Specific gravity (U) [Rel density] 1.010 1.002-1.030 [facility] Work Phone: Urobilinogen Auto test strip Ql (U)on 02-15-2022 Urobilinogen Ql (U) Normal mg/dl Normal [facility] Work Phone: Iron measurement (mass/mass) on 02-14-2022 Iron (Unsp spec) [Mass/Mass] 73 ug/dL 50-170 [facility] Work Phone: [phone] Laboratory - Chemistry and C hemistry - challengeon 02-14-2022 Cobalamin (Vitamin B12) [Mass/Vol] 318 pg/mL 211-911 [facility] Work Phone: Absolute lymphocyte counton 11-23-2021 Lymphocytes Auto (Unsp spec) [#/Vol] 1.90 10*3/uL 0.83-4.51 [facility] Work Phone: Basophil percentageon 2021 Basophils/100 WBC (Bld) 0.3 % 0-1 [facility] Work Phone: [phone] Bilirubin [Mass/Vol] 1.70 mg/dL 0.20-1.00 [facility] Work Phone: Comment on above: For patients on eltr ombopag therapy, use of Dimension [place] TBIL is not recommended. Chloride [Moles/Vol] 105 mmol/L 98-107 [facility] Work Phone: Eosinophils/100 WBC (Bld) 0.3 % 0-5 [facility] Work Phone: [phone] Glucose [Mass/Vol] 101 mg/dL 74-106 [facility] Work Phone: Comment on above: Fasting Glucose resu lt from 100 to 125 mg/dL suggests IMPAIRED HOMEOSTASIS per A.D.A. criteria. Neutrophils (Bld) [#/Vol] 10.2 10*3/uL 2.0-7.7 [facility] Work Phone: Neutrophils/100 WBC (Bld) 78.9 % 47-70 [facility] Work Phone: [phone] Potassium [Moles/Vol] 3.6 mmol/L 3.5-5.1 [facility] Work Phone: Protein [Mass/Vol] 7.5 g/dL 6.4-8.2 [facility] Work Phone: Sodium [Moles/Vol] 135 mmol/L 136-145 [facility] Work Phone: WBC (Bld) [#/Vol] 12.9 10*3/uL 4.4-11.0 [facility] Work Phone: Blood erythrocytes count (nu mber/volume)on 11-23-2021 RBC (Bld) [#/Vol] 4.29 10*6/uL 4.2-5.4 [facility] Work Phone: Blood hemoglobin measurement (mass/volume)on 11-23-2021 Hemoglobin (Bld) [Mass/Vol] 13.0 g/dL 12.0-15.0 [facility] Work Phone: Blood lymphocytes/100 leukoc yteson 11-23-2021 Lymphocytes/100 WBC (Bld) 14.7 % 19-41 [facility] Work Phone: Blood monocytes/100 leukocyt eson 11-23-2021 Monocytes/100 WBC (Bld) 5.3 % 0-10 [facility] Work Phone: Blood platelet mean volumeon 11-23-2021 Platelet mean volume (Bld) [Entitic vol] 11.3 fL 6.2-12.0 [facility] Work Phone: Determination of erythrocyte mean corpuscular volume (MCV)on 11-23-2021 MCV (RBC) [Entitic vol] 93.2 fL 81-99 [facility] Work Phone: Hematocrit Auto (Bld) [Volum e fraction]on 11-23-2021 Hematocrit (Bld) [Volume fraction] 40.0 % 37-47 [facility] Work Phone: Laboratory - Chemistry and C hemistry - challengeon 11-23-2021 ALP [Catalytic activity/Vol] 139 U/L 45-117 [facility] Work Phone: ALT [Catalytic activity/Vol] 15 U/L 13-56 [facility] Work Phone: CO2 [Moles/Vol] 21.0 mmol/L 21.0-32.0 [facility] Work Phone: Globulin (S) [Mass/Vol] 4.5 g/dL 2.2-4.2 [facility] Work Phone: Urea nitrogen/Creatinine [Mass ratio] 20.4 mg/mg 10-20 [facility] Work Phone: Laboratory - Hematology and Cell countson 11-23-2021 Erythrocyte distribution width (RBC) [Entitic vol] 45.5 fL 35.1-43.9 [facility] Work Phone: Erythrocyte distribution width (RBC) [Ratio] 13.3 % 11.6-14.6 [facility] Work Phone: Immature granulocytes/100 WBC (Bld) 0.500 % 0.0-0.9 [facility] Work Phone: Comment on above: IG% - Immature Granu locytes (promyelocytes, myelocytes and metamyelocytes) > 1% indicates that a LEFT SHIFT is Present. MCH (RBC) [Entitic mass] 30.3 pg 27.0-32.0 [facility] Work Phone: Nucleated RBC/100 WBC (Bld) [Ratio] 0 % 0-5 [facility] Work Phone: MCHC Auto (RBC) [Mass/Vol]on 11-23-2021 MCHC (RBC) [Mass/Vol] 32.5 g/dL 32-36 [facility] Work Phone: No Panel Informationon 11-23 Estimated GFR (MDRD) Amer 80 mL/min >60 [facility] Work Phone: Comment on above: GFR Calc Estimated GFR (MDRD) Non-Af Amer 66 mL/min >60 [facility] Work Phone: Comment on above: Non- GFR Calc Thyroid Stimulating Hormone (TSH) 2.66 uIU/mL 0.358-3.74 [facility] Work Phone: Vitamin D 25-Hydroxy 46.1 ng/mL [facility] Work Phone: Comment on above: Vitamin D 25(OH) Sta tus Range Deficiency <20 ng/mL (50nmol/L) Insufficiency 20 - 30 ng/mL (50 - 75 nmol/L) Sufficiency 30 - 100 ng/mL (75 - 250 nmol/L) Toxicity >100 ng/mL (>250 nmol/L) Platelets bldon 11-23-2021 Platelets (Bld) [#/Vol] 209 10*3/uL 150-450 [facility] Work Phone: Serum or plasma albumin osiris urement (mass/volume)on 11-23-2021 Albumin [Mass/Vol] 3.0 g/dL 3.2-5.0 [facility] Work Phone: Serum or plasma albumin/glob ulin mass ratioon 11-23-2021 Albumin/Globulin [Mass ratio] 0.7 {ratio} 0.9-2.4 [facility] Work Phone: Serum or plasma calcium osiris urement (mass/volume)on 11-23-2021 Calcium [Mass/Vol] 8.9 mg/dL 8.5-10.1 [facility] Work Phone: Serum or plasma creatinine m easurement (mass/volume)on 11-23-2021 Creatinine [Mass/Vol] 0.88 mg/dL 0.55-1.02 [facility] Work Phone: Comment on above: The validity of the calculated GFR & GFRAA in patients over 70 years has not been determined. Clinical correlation is essential. Serum or plasma urea nitroge n measurement (mass/volume)on 11-23-2021 Urea nitrogen [Mass/Vol] 18 mg/dL 7-18 [facility] Work Phone: Thin prep Papanicolaou smear with manual screeningon 11-23-2021 Thin prep Papanicolaou smear with manual screening 20 U/L 15-37 [facility] Work Phone: Thin prep Papanicolaou smear with manual screening 9 5-15 [facility] Work Phone: Absolute lymphocyte counton 10-06-2021 Lymphocytes Auto (Unsp spec) [#/Vol] 1.63 10*3/uL 0.83-4.51 [facility] Work Phone: Basophil percentageon 2021 Basophils/100 WBC (Bld) 0.7 % 0-1 [facility] Work Phone: Chloride [Moles/Vol] 107 mmol/L 98-107 [facility] Work Phone: Eosinophils/100 WBC (Bld) 1.1 % 0-5 [facility] Work Phone: Glucose [Mass/Vol] 104 mg/dL 74-106 [facility] Work Phone: Comment on above: Fasting Glucose resu lt from 100 to 125 mg/dL suggests IMPAIRED HOMEOSTASIS per A.D.A. criteria. Neutrophils (Bld) [#/Vol] 5.2 10*3/uL 2.0-7.7 [facility] Work Phone: Neutrophils/100 WBC (Bld) 69.3 % 47-70 [facility] Work Phone: Potassium [Moles/Vol] 3.8 mmol/L 3.5-5.1 [facility] Work Phone: Sodium [Moles/Vol] 137 mmol/L 136-145 [facility] Work Phone: WBC (Bld) [#/Vol] 7.5 10*3/uL 4.4-11.0 [facility] Work Phone: Blood erythrocytes count (nu mber/volume)on 02-19-2022 RBC (Bld) [#/Vol] 4.03 10*6/uL 4.2-5.4 [facility] Work Phone: Blood hemoglobin measurement (mass/volume)on 10-06-2021 Hemoglobin (Bld) [Mass/Vol] 12.6 g/dL 12.0-15.0 [facility] Work Phone: Blood lymphocytes/100 leukoc yteson 10-06-2021 Lymphocytes/100 WBC (Bld) 21.7 % 19-41 [facility] Work Phone: Blood monocytes/100 leukocyt eson 10-06-2021 Monocytes/100 WBC (Bld) 6.8 % 0-10 [facility] Work Phone: Blood platelet mean volumeon 10-06-2021 Platelet mean volume (Bld) [Entitic vol] 10.1 fL 6.2-12.0 [facility] Work Phone: Determination of erythrocyte mean corpuscular volume (MCV)on 10-06-2021 MCV (RBC) [Entitic vol] 91.6 fL 81-99 [facility] Work Phone: Hematocrit Auto (Bld) [Volum e fraction]on 10-06-2021 Hematocrit (Bld) [Volume fraction] 36.9 % 37-47 [facility] Work Phone: Laboratory - Chemistry and C hemistry - challengeon 10-06-2021 CO2 [Moles/Vol] 25.0 mmol/L 21.0-32.0 [facility] Work Phone: Urea nitrogen/Creatinine [Mass ratio] 32.1 mg/mg 10-20 [facility] Work Phone: Laboratory - Hematology and Cell countson 10-06-2021 Erythrocyte distribution width (RBC) [Entitic vol] 45.9 fL 35.1-43.9 [facility] Work Phone: Erythrocyte distribution width (RBC) [Ratio] 13.7 % 11.6-14.6 [facility] Work Phone: Immature granulocytes/100 WBC (Bld) 0.400 % 0.0-0.9 [facility] Work Phone: Comment on above: IG% - Immature Granu locytes (promyelocytes, myelocytes and metamyelocytes) > 1% indicates that a LEFT SHIFT is Present. MCH (RBC) [Entitic mass] 31.3 pg 27.0-32.0 [facility] Work Phone: Nucleated RBC/100 WBC (Bld) [Ratio] 0 % 0-5 [facility] Work Phone: MCHC Auto (RBC) [Mass/Vol]on 10-06-2021 MCHC (RBC) [Mass/Vol] 34.1 g/dL 32-36 [facility] Work Phone: No Panel Informationon 10-06 Estimated Creatinine Clearance Calc 40.18 ml/min [facility] Work Phone: Estimated GFR (MDRD) Amer 126 mL/min >60 [facility] Work Phone: Comment on above: GFR Calc Estimated GFR (MDRD) Non-Af Amer 104 mL/min >60 [facility] Work Phone: Comment on above: Non- GFR Calc Platelets bldon 10-06-2021 Platelets (Bld) [#/Vol] 207 10*3/uL 150-450 [facility] Work Phone: Serum or plasma calcium osiris urement (mass/volume)on 10-06-2021 Calcium [Mass/Vol] 8.3 mg/dL 8.5-10.1 [facility] Work Phone: Serum or plasma creatinine m easurement (mass/volume)on 10-06-2021 Creatinine [Mass/Vol] 0.59 mg/dL 0.55-1.02 [facility] Work Phone: Comment on above: The validity of the calculated GFR & GFRAA in patients over 70 years has not been determined. Clinical correlation is essential. Serum or plasma urea nitroge n measurement (mass/volume)on 10-06-2021 Urea nitrogen [Mass/Vol] 19 mg/dL 7-18 [facility] Work Phone: Thin prep Papanicolaou smear with manual screeningon 10-06-2021 Thin prep Papanicolaou smear with manual screening 5 5-15 [facility] Work Phone: Basophil percentageon 2021 Basophil percentage 0 SEEN /hpf [facility] Work Phone: Bilirubin [Mass/Vol] 0.70 mg/dL 0.20-1.00 [facility] Work Phone: Comment on above: For patients on eltr ombopag therapy, use of Dimension [place] TBIL is not recommended. Protein [Mass/Vol] 6.9 g/dL 6.4-8.2 [facility] Work Phone: Bilirubin Test strip Ql (U)o n 10-05-2021 Bilirubin Ql (U) Negative Negative [facility] Work Phone: Ketones Test strip Ql (U)on 10-05-2021 Ketones Ql (U) Negative Negative [facility] Work Phone: Laboratory - Chemistry and C hemistry - challengeon 10-05-2021 ALP [Catalytic activity/Vol] 139 U/L 45-117 [facility] Work Phone: ALT [Catalytic activity/Vol] 16 U/L 13-56 [facility] Work Phone: Globulin (S) [Mass/Vol] 3.9 g/dL 2.2-4.2 [facility] Work Phone: Mucus LM Ql (Urine sed)on Mucus Ql (Urine sed) 0 SEEN /hpf [facility] Work Phone: Nitrite Test strip Ql (U)on 10-05-2021 Nitrite Ql (U) Negative Negative [facility] Work Phone: No Panel Informationon 10-05 Troponin I High Sensitivity 8 pg/mL 3.0-54.0 [facility] Work Phone: Comment on above: Please Note: New Lamar t Units and Gender Specific Reference Ranges. For more information see Policy Stat Procedure [place] High Sensitivity Troponin (TNIH) and attachments. SARS-CoV-2 Antigen (Rapid) [facility] Work Phone: Protein Test strip Ql (U)on 10-05-2021 Protein Ql (U) 30 mg/dl Negative [facility] Work Phone: Serum or plasma albumin osiris urement (mass/volume)on 10-05-2021 Albumin [Mass/Vol] 3.0 g/dL 3.2-5.0 [facility] Work Phone: Serum or plasma albumin/glob ulin mass ratioon 10-05-2021 Albumin/Globulin [Mass ratio] 0.8 {ratio} 0.9-2.4 [facility] Work Phone: Squamous epithelial cells de tection in urine sediment by light microscopyon 10-05-2021 Epithelial cells.squamous LM Ql (Urine sed) 0-5 SEEN /hpf [facility] Work Phone: Thin prep Papanicolaou smear with manual screeningon 10-05-2021 Thin prep Papanicolaou smear with manual screening 12 U/L 15-37 [facility] Work Phone: Urine blood detectionon 09-18 RBC Ql (U) Negative Negative [facility] Work Phone: RBC Ql (U) 0 SEEN /hpf [facility] Work Phone: Urine clarityon 10-05-2021 Clarity (U) Clear Clear [facility] Work Phone: Urine color determinationon 10-05-2021 Color (U) Yellow Yellow [facility] Work Phone: Urine glucose detectionon Glucose Ql (U) Normal mg/dl Normal [facility] Work Phone: Urine leukocyte esterase det ection by dipstickon 10-05-2021 Leukocyte esterase Test strip Ql (U) Negative Negative [facility] Work Phone: Urine pHon 10-05-2021 pH (U) 6.0 [pH] [facility] Work Phone: Urine sediment bacteria coun t by microscopy (number/high power field)on 10-05-2021 Bacteria LM.HPF (Urine sed) [#/Area] 0 /[HPF] None Seen [facility] Work Phone: Urine specific gravity measu rementon 10-05-2021 Specific gravity (U) [Rel density] 1.020 [facility] Work Phone: Urobilinogen Auto test strip Ql (U)on 10-05-2021 Urobilinogen Ql (U) Normal mg/dl Normal [facility] Work Phone: Absolute lymphocyte counton 10-03-2021 Lymphocytes Auto (Unsp spec) [#/Vol] 1.64 10*3/uL 0.83-4.51 [facility] Work Phone: Basophil percentageon 2021 Basophils/100 WBC (Bld) 0.6 % 0-1 [facility] Work Phone: Chloride [Moles/Vol] 111 mmol/L 98-107 [facility] Work Phone: Eosinophils/100 WBC (Bld) 1.5 % 0-5 [facility] Work Phone: [phone] Glucose [Mass/Vol] 99 mg/dL 74-106 [facility] Work Phone: Neutrophils (Bld) [#/Vol] 4.5 10*3/uL 2.0-7.7 [facility] Work Phone: [phone] Neutrophils/100 WBC (Bld) 66.6 % 47-70 [facility] Work Phone: Potassium [Moles/Vol] 4.0 mmol/L 3.5-5.1 [facility] Work Phone: Sodium [Moles/Vol] 139 mmol/L 136-145 [facility] Work Phone: WBC (Bld) [#/Vol] 6.7 10*3/uL 4.4-11.0 [facility] Work Phone: Blood erythrocytes count (nu mber/volume)on 10-03-2021 RBC (Bld) [#/Vol] 4.12 10*6/uL 4.2-5.4 [facility] Work Phone: Blood hemoglobin measurement (mass/volume)on 10-03-2021 Hemoglobin (Bld) [Mass/Vol] 12.5 g/dL 12.0-15.0 [facility] Work Phone: Blood lymphocytes/100 leukoc yteson 10-03-2021 Lymphocytes/100 WBC (Bld) 24.4 % 19-41 [facility] Work Phone: Blood monocytes/100 leukocyt eson 10-03-2021 Monocytes/100 WBC (Bld) 6.5 % 0-10 [facility] Work Phone: Blood platelet mean volumeon 10-03-2021 Platelet mean volume (Bld) [Entitic vol] 9.7 fL 6.2-12.0 [facility] Work Phone: Determination of erythrocyte mean corpuscular volume (MCV)on 10-03-2021 MCV (RBC) [Entitic vol] 93.0 fL 81-99 [facility] Work Phone: Hematocrit Auto (Bld) [Volum e fraction]on 10-03-2021 Hematocrit (Bld) [Volume fraction] 38.3 % 37-47 [facility] Work Phone: Laboratory - Chemistry and C hemistry - challengeon 10-03-2021 CO2 [Moles/Vol] 26.0 mmol/L 21.0-32.0 [facility] Work Phone: Urea nitrogen/Creatinine [Mass ratio] 26.5 mg/mg 10-20 [facility] Work Phone: Laboratory - Hematology and Cell countson 10-03-2021 Erythrocyte distribution width (RBC) [Entitic vol] 46.9 fL 35.1-43.9 [facility] Work Phone: Erythrocyte distribution width (RBC) [Ratio] 13.7 % 11.6-14.6 [facility] Work Phone: Immature granulocytes/100 WBC (Bld) 0.400 % 0.0-0.9 [facility] Work Phone: Comment on above: IG% - Immature Granu locytes (promyelocytes, myelocytes and metamyelocytes) > 1% indicates that a LEFT SHIFT is Present. MCH (RBC) [Entitic mass] 30.3 pg 27.0-32.0 [facility] Work Phone: Nucleated RBC/100 WBC (Bld) [Ratio] 0 % 0-5 [facility] Work Phone: MCHC Auto (RBC) [Mass/Vol]on 10-03-2021 MCHC (RBC) [Mass/Vol] 32.6 g/dL 32-36 [facility] Work Phone: No Panel Informationon 10-03 Estimated Creatinine Clearance Calc 41.32 ml/min [facility] Work Phone: Estimated GFR (MDRD) Amer 107 mL/min >60 [facility] Work Phone: Comment on above: GFR Calc Estimated GFR (MDRD) Non-Af Amer 89 mL/min >60 [facility] Work Phone: Comment on above: Non- GFR Calc Platelets bldon 10-03-2021 Platelets (Bld) [#/Vol] 197 10*3/uL 150-450 [facility] Work Phone: Serum or plasma calcium osiris urement (mass/volume)on 10-03-2021 Calcium [Mass/Vol] 8.4 mg/dL 8.5-10.1 [facility] Work Phone: Serum or plasma creatinine m easurement (mass/volume)on 10-03-2021 Creatinine [Mass/Vol] 0.68 mg/dL 0.55-1.02 [facility] Work Phone: Comment on above: The validity of the calculated GFR & GFRAA in patients over 70 years has not been determined. Clinical correlation is essential. Serum or plasma urea nitroge n measurement (mass/volume)on 10-03-2021 Urea nitrogen [Mass/Vol] 18 mg/dL 7-18 [facility] Work Phone: Thin prep Papanicolaou smear with manual screeningon 10-03-2021 Thin prep Papanicolaou smear with manual screening 2 5-15 [facility] Work Phone: Basophil percentageon 2021 Bilirubin [Mass/Vol] 0.40 mg/dL 0.20-1.00 [facility] Work Phone: Comment on above: For patients on eltr ombopag therapy, use of Dimension Dellrose TBIL is not recommended. Protein [Mass/Vol] 5.9 g/dL 6.4-8.2 [facility] Work Phone: Laboratory - Chemistry and C hemistry - challengeon 09-21-2021 ALP [Catalytic activity/Vol] 112 U/L 45-117 [facility] Work Phone: ALT [Catalytic activity/Vol] 18 U/L 13-56 [facility] Work Phone: Globulin (S) [Mass/Vol] 3.3 g/dL 2.2-4.2 [facility] Work Phone: Serum or plasma albumin osiris urement (mass/volume)on 09-21-2021 Albumin [Mass/Vol] 2.6 g/dL 3.2-5.0 [facility] Work Phone: Serum or plasma albumin/glob ulin mass ratioon 09-21-2021 Albumin/Globulin [Mass ratio] 0.8 {ratio} 0.9-2.4 [facility] Work Phone: Thin prep Papanicolaou smear with manual screeningon 09-21-2021 Thin prep Papanicolaou smear with manual screening 14 U/L 15-37 [facility] Work Phone: Direct bilirubinon 2 Bilirubin.direct [Mass/Vol] 0.13 mg/dL 0.00-0.30 [facility] Work Phone: No Panel Informationon 09-19 SARS-CoV-2 Antigen (Rapid) SARS-CoV-2 (COVID 19) [facility] Work Phone: Basophil percentageon 2021 Basophil percentage 0 SEEN /hpf [facility] Work Phone: Bilirubin Test strip Ql (U)o n 09-18-2021 Bilirubin Ql (U) Negative Negative [facility] Work Phone: Culture, urineon 09-18-2021 Bacteria identified Cx Nom (U) Lactobacillus gasseri [facility] Work Phone: Ketones Test strip Ql (U)on 09-18-2021 Ketones Ql (U) 5 mg/dl Negative [facility] Work Phone: Mucus LM Ql (Urine sed)on Mucus Ql (Urine sed) 0 SEEN /hpf [facility] Work Phone: Nitrite Test strip Ql (U)on 09-18-2021 Nitrite Ql (U) Negative Negative [facility] Work Phone: Protein Test strip Ql (U)on 09-18-2021 Protein Ql (U) 30 mg/dl Negative [facility] Work Phone: Squamous epithelial cells de tection in urine sediment by light microscopyon 09-18-2021 Epithelial cells.squamous LM Ql (Urine sed) 0 SEEN /hpf [facility] Work Phone: Urine blood detectionon 02-0 RBC Ql (U) 10 /ul Negative [facility] Work Phone: RBC Ql (U) 0 SEEN /hpf [facility] Work Phone: Urine clarityon 09-18-2021 Clarity (U) Clear Clear [facility] Work Phone: Urine color determinationon 09-18-2021 Color (U) Yellow Yellow [facility] Work Phone: Urine glucose detectionon Glucose Ql (U) Normal mg/dl Normal [facility] Work Phone: Urine leukocyte esterase det ection by dipstickon 09-18-2021 Leukocyte esterase Test strip Ql (U) Negative Negative [facility] Work Phone: Urine pHon 09-18-2021 pH (U) 5.0 [pH] [facility] Work Phone: Urine sediment bacteria coun t by microscopy (number/high power field)on 09-18-2021 Bacteria LM.HPF (Urine sed) [#/Area] 1 /[HPF] None Seen [facility] Work Phone: Urine specific gravity measu rementon 09-18-2021 Specific gravity (U) [Rel density] 1.020 [facility] Work Phone: Urobilinogen Auto test strip Ql (U)on 09-18-2021 Urobilinogen Ql (U) Normal mg/dl Normal [facility] Work Phone: Absolute lymphocyte counton 09-04-2021 Lymphocytes Auto (Unsp spec) [#/Vol] 1.36 10*3/uL 0.83-4.51 [facility] Work Phone: Basophil percentageon 2021 Basophils/100 WBC (Bld) 0.2 % 0-1 [facility] Work Phone: Chloride [Moles/Vol] 105 mmol/L 98-107 [facility] Work Phone: Eosinophils/100 WBC (Bld) 0.3 % 0-5 [facility] Work Phone: Glucose [Mass/Vol] 108 mg/dL 74-106 [facility] Work Phone: Comment on above: Fasting Glucose resu lt from 100 to 125 mg/dL suggests IMPAIRED HOMEOSTASIS per A.D.A. criteria. Neutrophils (Bld) [#/Vol] 7.0 10*3/uL 2.0-7.7 [facility] Work Phone: Neutrophils/100 WBC (Bld) 78.7 % 47-70 [facility] Work Phone: Potassium [Moles/Vol] 3.7 mmol/L 3.5-5.1 [facility] Work Phone: Sodium [Moles/Vol] 137 mmol/L 136-145 [facility] Work Phone: WBC (Bld) [#/Vol] 8.9 10*3/uL 4.4-11.0 [facility] Work Phone: Blood erythrocytes count (nu mber/volume)on 09-04-2021 RBC (Bld) [#/Vol] 4.17 10*6/uL 4.2-5.4 [facility] Work Phone: Blood hemoglobin measurement (mass/volume)on 09-04-2021 Hemoglobin (Bld) [Mass/Vol] 12.8 g/dL 12.0-15.0 [facility] Work Phone: Blood lymphocytes/100 leukoc yteson 09-04-2021 Lymphocytes/100 WBC (Bld) 15.2 % 19-41 [facility] Work Phone: Blood monocytes/100 leukocyt eson 09-04-2021 Monocytes/100 WBC (Bld) 5.3 % 0-10 [facility] Work Phone: Blood platelet mean volumeon 09-04-2021 Platelet mean volume (Bld) [Entitic vol] 9.9 fL 6.2-12.0 [facility] Work Phone: Determination of erythrocyte mean corpuscular volume (MCV)on 09-04-2021 MCV (RBC) [Entitic vol] 90.9 fL 81-99 [facility] Work Phone: Hematocrit Auto (Bld) [Volum e fraction]on 09-04-2021 Hematocrit (Bld) [Volume fraction] 37.9 % 37-47 [facility] Work Phone: Laboratory - Chemistry and C hemistry - challengeon 09-04-2021 CO2 [Moles/Vol] 26.0 mmol/L 21.0-32.0 [facility] Work Phone: Urea nitrogen/Creatinine [Mass ratio] 33.7 mg/mg 10-20 [facility] Work Phone: Laboratory - Hematology and Cell countson 09-04-2021 Erythrocyte distribution width (RBC) [Entitic vol] 42.4 fL 35.1-43.9 [facility] Work Phone: Erythrocyte distribution width (RBC) [Ratio] 12.8 % 11.6-14.6 [facility] Work Phone: Immature granulocytes/100 WBC (Bld) 0.300 % 0.0-0.9 [facility] Work Phone: Comment on above: IG% - Immature Granu locytes (promyelocytes, myelocytes and metamyelocytes) > 1% indicates that a LEFT SHIFT is Present. MCH (RBC) [Entitic mass] 30.7 pg 27.0-32.0 [facility] Work Phone: Nucleated RBC/100 WBC (Bld) [Ratio] 0 % 0-5 [facility] Work Phone: MCHC Auto (RBC) [Mass/Vol]on 09-04-2021 MCHC (RBC) [Mass/Vol] 33.8 g/dL 32-36 [facility] Work Phone: No Panel Informationon 09-04 Estimated Creatinine Clearance Calc 44.29 ml/min [facility] Work Phone: Estimated GFR (MDRD) Amer 126 mL/min >60 [facility] Work Phone: Comment on above: GFR Calc Estimated GFR (MDRD) Non-Af Amer 104 mL/min >60 [facility] Work Phone: Comment on above: Non- GFR Calc Platelets bldon 09-04-2021 Platelets (Bld) [#/Vol] 181 10*3/uL 150-450 [facility] Work Phone: Serum or plasma calcium osiris urement (mass/volume)on 09-04-2021 Calcium [Mass/Vol] 8.1 mg/dL 8.5-10.1 [facility] Work Phone: Serum or plasma creatinine m easurement (mass/volume)on 09-04-2021 Creatinine [Mass/Vol] 0.59 mg/dL 0.55-1.02 [facility] Work Phone: Comment on above: The validity of the calculated GFR & GFRAA in patients over 70 years has not been determined. Clinical correlation is essential. Serum or plasma urea nitroge n measurement (mass/volume)on 09-04-2021 Urea nitrogen [Mass/Vol] 20 mg/dL -18 [facility] Work Phone: Thin prep Papanicolaou smear with manual screeningon 09-04-2021 Thin prep Papanicolaou smear with manual screening 6 5-15 [facility] Work Phone: Laboratory - Chemistry and C hemistry - challengeon 09-03-2021 Magnesium [Mass/Vol] 2.0 mg/dL 1.6-2.6 [facility] Work Phone: No Panel Informationon 09-03 SARS-CoV-2 Antigen (Rapid) [facility] Work Phone: Bilirubin Test strip Ql (U)o n 09-02-2021 Bilirubin Ql (U) Negative Negative [facility] Work Phone: Culture, urineon 09-02-2021 Bacteria identified Cx Nom (U) Mixed Gram Pos & Gram Neg Org [facility] Work Phone: INR in Blood by Coagulation assayon 09-02-2021 INR Coag (Bld) [Relative time] 1.1 {INR} [facility] Work Phone: Ketones Test strip Ql (U)on 09-02-2021 Ketones Ql (U) Negative Negative [facility] Work Phone: Laboratory - Coagulationon 0 09-02-2021 aPTT Coag (Bld) [Time] 25.9 s 24.1-36.2 [facility] Work Phone: PT Coag (PPP) [Time] 14.0 s 11.7-14.9 [facility] Work Phone: Nitrite Test strip Ql (U)on 09-02-2021 Nitrite Ql (U) Negative Negative [facility] Work Phone: Protein Test strip Ql (U)on 09-02-2021 Protein Ql (U) 100 mg/dl Negative [facility] Work Phone: Urine blood detectionon 08-18 RBC Ql (U) 150 /ul Negative [facility] Work Phone: Urine clarityon 09-02-2021 Clarity (U) Turbid Clear [facility] Work Phone: Urine color determinationon 09-02-2021 Color (U) Yellow Yellow [facility] Work Phone: Urine glucose detectionon Glucose Ql (U) Normal mg/dl Normal [facility] Work Phone: Urine leukocyte esterase det ection by dipstickon 09-02-2021 Leukocyte esterase Test strip Ql (U) 500 /ul Negative [facility] Work Phone: Urine pHon 09-02-2021 pH (U) 5.0 [pH] [facility] Work Phone: Urine specific gravity measu rementon 09-02-2021 Specific gravity (U) [Rel density] 1.025 [facility] Work Phone: Urobilinogen Auto test strip Ql (U)on 09-02-2021 Urobilinogen Ql (U) Normal mg/dl Normal [facility] Work Phone: Culture, urine Bacteria identified Cx Nom (U) Presumptive E. coli [facility] Work Phone: VISUAL FIELD 24-2 OU (BOTH E YES) [facility] Vital Signs Date Time Vital Sign Value Performing Clinician Facility 02-03-2025 08:15-0400 Body temperature 97.3 [degF] Dr. Chema Perry MD Work Phone: [facility] 02-03-2025 08:15-0400 Diastolic blood pressure 62 mm[Hg] Dr. Chema Perry MD Work Phone: [facility] 02-03-2025 08:15-0400 Heart rate 77 /min Dr. Chema Perry MD Work Phone: [facility] 02-03-2025 08:15-0400 Respiratory rate 16 /min Dr. Chema Perry MD Work Phone: [facility] 02-03-2025 08:15-0400 SaO2% (BldA) [Mass fraction] 98 % Dr. Chema Perry MD Work Phone: [facility] 02-03-2025 08:15-0400 Systolic blood pressure 101 mm[Hg] Dr. Chema Perry MD Work Phone: [facility] 02-03-2025 04:07-0400 Body height 139.[address] Chema Perry MD Work Phone: [facility] 02-03-2025 04:07-0400 Body mass index (BMI) [Ratio] 28.8 kg/m2 Dr. Chema Perry MD Work Phone: [facility] 02-03-2025 04:07-0400 Body weight 56.[address] Chema Perry MD Work Phone: [facility] 12-23-2024 14:30-0400 Diastolic blood pressure 56 mm[Hg] Laisha Lizarraga APRN.EMERGENCY MEDICAL TECH Work Phone: [facility] 12-23-2024 14:30-0400 Heart rate 70 /min Laisha Lizarraga APRN.EMERGENCY MEDICAL TECH Work Phone: [facility] 12-23-2024 14:30-0400 Systolic blood pressure 121 mm[Hg] Laisha Lizarraga APRN.EMERGENCY MEDICAL TECH Work Phone: [facility] 12-20-2024 13:53-0400 Body mass index (BMI) [Ratio] 23.24 kg/m2 Sourav Marcial MD Work Phone: [facility] 12-20-2024 13:53-0400 Body weight 45.36 kg Sourav Marcial MD Work Phone: [facility] 12-20-2024 13:53-0400 Diastolic blood pressure 56 mm[Hg] Sourav Marcial MD Work Phone: [facility] 12-20-2024 13:53-0400 Heart rate 72 /min Sourav Marcial MD Work Phone: [facility] 12-20-2024 13:53-0400 Systolic blood pressure 108 mm[Hg] Sourav Marcial MD Work Phone: [facility] 12-19-2024 14:46-0400 Body mass index (BMI) [Ratio] 23.57 kg/m2 Krislyn Aberegg PA Work Phone: [facility] 12-19-2024 14:46-0400 Body temperature 98.8 [degF] Krislyn Aberegg PA Work Phone: [facility] 12-19-2024 14:46-0400 Body weight 46 kg Krislyn Aberegg PA Work Phone: [facility] 12-19-2024 14:46-0400 Diastolic blood pressure 71 mm[Hg] Krislyn Aberegg PA Work Phone: [facility] 12-19-2024 14:46-0400 Heart rate 71 /min Krislyn Aberegg PA Work Phone: [facility] 12-19-2024 14:46-0400 Respiratory rate 16 /min Krislyn Aberegg PA Work Phone: [facility] 12-19-2024 14:46-0400 SaO2% (BldA) [Mass fraction] 94 % Krislyn Aberegg PA Work Phone: [facility] 12-19-2024 14:46-0400 Systolic blood pressure 120 mm[Hg] Krislyn Aberegg PA Work Phone: [facility] 12-03-2024 11:29-0400 Body height 139.7 cm Anila De Paz MD Work Phone: [facility] 12-03-2024 11:29-0400 Body mass index (BMI) [Ratio] 24.03 kg/m2 Anila De Paz MD Work Phone: [facility] 12-03-2024 11:29-0400 Body weight 46.9 kg Anila De Paz MD Work Phone: [facility] 12-03-2024 11:29-0400 Diastolic blood pressure 48 mm[Hg] Anila De Paz MD Work Phone: [facility] 12-03-2024 11:29-0400 Heart rate 60 /min Anila De Paz MD Work Phone: [facility] 12-03-2024 11:29-0400 Systolic blood pressure 106 mm[Hg] Anila De Paz MD Work Phone: [facility] 11-03-2024 15:32-0400 Body mass index (BMI) [Ratio] 24.29 kg/m2 Denice Queener PA-C Work Phone: [facility] 11-03-2024 15:32-0400 Body weight 47.4 kg Denice Houstoner PA-C Work Phone: [facility] 11-03-2024 15:32-0400 Diastolic blood pressure 73 mm[Hg] Denice Houstoner PA-C Work Phone: [facility] 11-03-2024 15:32-0400 Heart rate 68 /min Denice Houstoner PA-C Work Phone: [facility] 11-03-2024 15:32-0400 SaO2% (BldA) [Mass fraction] 90 % Denice Houstoner PA-C Work Phone: [facility] 11-03-2024 15:32-0400 Systolic blood pressure 125 mm[Hg] Denice Houstoner PA-C Work Phone: [facility] 10-29-2024 13:27-0400 Body height 139.7 cm Anila De Paz MD Work Phone: [facility] 10-29-2024 13:27-0400 Body mass index (BMI) [Ratio] 24.29 kg/m2 Anila De Paz MD Work Phone: [facility] 10-29-2024 13:27-0400 Body weight 47.4 kg Anila De Paz MD Work Phone: [facility] 10-29-2024 13:27-0400 Diastolic blood pressure 51 mm[Hg] Anila De Paz MD Work Phone: [facility] 10-29-2024 13:27-0400 Heart rate 77 /min Anila De Paz MD Work Phone: [facility] 10-29-2024 13:27-0400 Systolic blood pressure 93 mm[Hg] Anila De Paz MD Work Phone: [facility] 10-22-2024 08:26-0500 Body mass index (BMI) [Ratio] 23.9 kg/m2 Dr. Chema Perry MD Work Phone: [facility] 10-22-2024 08:26-0500 Body temperature 97.4 [degF] Dr. Chema Perry MD Work Phone: [facility] 10-22-2024 08:26-0500 Body weight 46.[address] Chema Perry MD Work Phone: [facility] 10-22-2024 08:26-0500 Diastolic blood pressure 79 mm[Hg] Dr. Chema Perry MD Work Phone: [facility] 10-22-2024 08:26-0500 Heart rate 72 /min Dr. Chema Perry MD Work Phone: [facility] 10-22-2024 08:26-0500 Respiratory rate 18 /min Dr. Chema Perry MD Work Phone: [facility] 10-22-2024 08:26-0500 SaO2% (BldA) [Mass fraction] 93 % Dr. Chema Perry MD Work Phone: [facility] 10-22-2024 08:26-0500 Systolic blood pressure 125 mm[Hg] Dr. Chema Perry MD Work Phone: [facility] 10-14-2024 13:18-0500 Body height 139.[address] Chema Perry MD Work Phone: [facility] 10-14-2024 13:18-0500 Body mass index (BMI) [Ratio] 24.4 kg/m2 Dr. Chema Perry MD Work Phone: [facility] 10-14-2024 13:18-0500 Body temperature 98.4 [degF] Dr. Chema Perry MD Work Phone: [facility] 10-14-2024 13:18-0500 Body weight 47.[address] Chema Perry MD Work Phone: [facility] 10-14-2024 13:18-0500 Diastolic blood pressure 79 mm[Hg] Dr. Chema Perry MD Work Phone: [facility] 10-14-2024 13:18-0500 Heart rate 78 /min Dr. Chmea Perry MD Work Phone: [facility] 10-14-2024 13:18-0500 Respiratory rate 16 /min Dr. Chema Perry MD Work Phone: [facility] 10-14-2024 13:18-0500 SaO2% (BldA) [Mass fraction] 90 % Dr. Chema Perry MD Work Phone: [facility] 10-14-2024 13:18-0500 Systolic blood pressure 113 mm[Hg] Dr. Chema Perry MD Work Phone: [facility] 10-13-2024 13:08-0500 Body height 139.7 cm Laisha Lizarraga APRN.EMERGENCY MEDICAL TECH Work Phone: [facility] 10-13-2024 13:08-0500 Body mass index (BMI) [Ratio] 23.47 kg/m2 Laisha Lizarraga APRN.EMERGENCY MEDICAL TECH Work Phone: [facility] 10-13-2024 13:08-0500 Body weight 45.81 kg Laisha Lizarraga APRN.EMERGENCY MEDICAL TECH Work Phone: [facility] 10-13-2024 13:08-0500 Diastolic blood pressure 43 mm[Hg] Laisha Lizarraga APRN.EMERGENCY MEDICAL TECH Work Phone: [facility] 10-13-2024 13:08-0500 Heart rate 73 /min Laisha Lizarraga APRN.EMERGENCY MEDICAL TECH Work Phone: [facility] 10-13-2024 13:08-0500 Systolic blood pressure 81 mm[Hg] Laisha Lizarraga APRN.EMERGENCY MEDICAL TECH Work Phone: [facility] 10-08-2024 10:12-0500 Body height 142.2 cm Anila De Paz MD Work Phone: [facility] 10-08-2024 10:12-0500 Body mass index (BMI) [Ratio] 23.19 kg/m2 Anila De Paz MD Work Phone: [facility] 10-08-2024 10:12-0500 Body temperature 98.2 [degF] Anila De Paz MD Work Phone: [facility] 10-08-2024 10:12-0500 Body weight 46.9 kg Anila De Paz MD Work Phone: [facility] 10-08-2024 10:12-0500 Diastolic blood pressure 64 mm[Hg] Anila De Paz MD Work Phone: [facility] 10-08-2024 10:12-0500 Heart rate 68 /min Anila De Paz MD Work Phone: [facility] 10-08-2024 10:12-0500 Systolic blood pressure 137 mm[Hg] Anila De Paz MD Work Phone: [facility] 09-18-2024 10:18-0500 Body temperature 97.7 [degF] Dr. Chema Perry MD Work Phone: [facility] 09-18-2024 10:18-0500 Diastolic blood pressure 74 mm[Hg] Dr. Chema Perry MD Work Phone: [facility] 09-18-2024 10:18-0500 Heart rate 78 /min Dr. Chema Perry MD Work Phone: [facility] 09-18-2024 10:18-0500 Respiratory rate 18 /min Dr. Chema Perry MD Work Phone: [facility] 09-18-2024 10:18-0500 SaO2% (BldA) [Mass fraction] 98 % Dr. Chema Perry MD Work Phone: [facility] 09-18-2024 10:18-0500 Systolic blood pressure 154 mm[Hg] Dr. Chema Perry MD Work Phone: [facility] 09-18-2024 08:38-0500 Body mass index (BMI) [Ratio] 25.7 kg/m2 Dr. Chema Perry MD Work Phone: [facility] 09-18-2024 08:38-0500 Body weight 50.[address] Chema Perry MD Work Phone: [facility] 09-14-2024 13:49-0500 Body height 139.7 cm Pacc 1 Work Phone: [facility] 09-14-2024 13:49-0500 Body mass index (BMI) [Ratio] 24.5 kg/m2 Pacc 1 Work Phone: [facility] 09-14-2024 13:49-0500 Body temperature 98.29 [degF] Pacc 1 Work Phone: [facility] 09-14-2024 13:49-0500 Body weight 47.81 kg Pacc 1 Work Phone: [facility] 09-14-2024 13:49-0500 Diastolic blood pressure 64 mm[Hg] Pacc 1 Work Phone: [facility] 09-14-2024 13:49-0500 Heart rate 71 /min Pacc 1 Work Phone: [facility] 09-14-2024 13:49-0500 Respiratory rate 12 /min Pacc 1 Work Phone: [facility] 09-14-2024 13:49-0500 SaO2% (BldA) [Mass fraction] 96 % Pacc 1 Work Phone: [facility] 09-14-2024 13:49-0500 Systolic blood pressure 124 mm[Hg] Pacc 1 Work Phone: [facility] 09-13-2024 15:50-0500 Diastolic blood pressure 74 mm[Hg] Alisa Haile MD Work Phone: [facility] 09-13-2024 15:50-0500 Heart rate 58 /min Alisa Haile MD Work Phone: [facility] 09-13-2024 15:50-0500 Respiratory rate 16 /min Alisa Haile MD Work Phone: [facility] 09-13-2024 15:50-0500 SaO2% (BldA) [Mass fraction] 96 % Alisa Haile MD Work Phone: [facility] 09-13-2024 15:50-0500 Systolic blood pressure 159 mm[Hg] Alisa Haile MD Work Phone: [facility] 09-13-2024 14:20-0500 Body temperature 97.9 [degF] Alisa Haile MD Work Phone: [facility] 09-03-2024 14:23-0500 Body height 142.2 cm Anila De Paz MD Work Phone: [facility] 09-03-2024 14:23-0500 Body mass index (BMI) [Ratio] 22.95 kg/m2 Anila De Paz MD Work Phone: [facility] 09-03-2024 14:23-0500 Body weight 46.4 kg Anila De Paz MD Work Phone: [facility] 09-03-2024 14:23-0500 Diastolic blood pressure 57 mm[Hg] Anila De Paz MD Work Phone: [facility] 09-03-2024 14:23-0500 Heart rate 72 /min Anila De Paz MD Work Phone: [facility] 09-03-2024 14:23-0500 Systolic blood pressure 108 mm[Hg] Anila De Paz MD Work Phone: [facility] 08-06-2024 09:50-0500 Body height 142.2 cm Denice Jacobs PA-C Work Phone: [facility] 08-06-2024 09:50-0500 Body mass index (BMI) [Ratio] 22.69 kg/m2 Denice Jacobs PA-C Work Phone: [facility] 08-06-2024 09:50-0500 Body weight 45.9 kg Denice Jacobs PA-C Work Phone: [facility] 08-06-2024 09:50-0500 Diastolic blood pressure 63 mm[Hg] Deince Jacobs PA-C Work Phone: [facility] 08-06-2024 09:50-0500 Heart rate 79 /min Denice Jacobs PA-C Work Phone: [facility] 08-06-2024 09:50-0500 SaO2% (BldA) [Mass fraction] 94 % Denice Jacobs PA-C Work Phone: [facility] 08-06-2024 09:50-0500 Systolic blood pressure 116 mm[Hg] Denice Jacobs PA-C Work Phone: [facility] 08-03-2024 15:36-0500 Diastolic blood pressure 74 mm[Hg] Sourav Marcial MD Work Phone: [facility] 08-03-2024 15:36-0500 Heart rate 75 /min Sourav Marcial MD Work Phone: [facility] 08-03-2024 15:36-0500 Systolic blood pressure 148 mm[Hg] oSurav Marcial MD Work Phone: [facility] 07-21-2024 17:24-0500 Body temperature 96.8 [degF] Eliazar Brown MD Work Phone: [facility] 07-21-2024 17:24-0500 Diastolic blood pressure 69 mm[Hg] Eliazar Brown MD Work Phone: [facility] 07-21-2024 17:24-0500 Heart rate 73 /min Eliazar Brown MD Work Phone: [facility] 07-21-2024 17:24-0500 Respiratory rate 16 /min Eliazar Brown MD Work Phone: [facility] 07-21-2024 17:24-0500 SaO2% (BldA) [Mass fraction] 92 % Eliazar Brown MD Work Phone: [facility] 07-21-2024 17:24-0500 Systolic blood pressure 132 mm[Hg] Eliazar Brown MD Work Phone: [facility] 07-21-2024 16:35-0500 Body height 142.2 cm Eliazar Brown MD Work Phone: [facility] 07-21-2024 16:35-0500 Body mass index (BMI) [Ratio] 21.97 kg/m2 Eliazar Brown MD Work Phone: [facility] 07-21-2024 16:35-0500 Body weight 44.45 kg Eliazar Brown MD Work Phone: [facility] 07-16-2024 14:35-0500 Body mass index (BMI) [Ratio] 19.79 kg/m2 Pacc 1 Work Phone: [facility] 07-16-2024 14:35-0500 Body weight 44.45 kg Pacc 1 Work Phone: [facility] 07-16-2024 14:35-0500 Diastolic blood pressure 81 mm[Hg] Pacc 1 Work Phone: [facility] 07-16-2024 14:35-0500 Heart rate 62 /min Pacc 1 Work Phone: [facility] 07-16-2024 14:35-0500 SaO2% (BldA) [Mass fraction] 96 % Pacc 1 Work Phone: [facility] 07-16-2024 14:35-0500 Systolic blood pressure 161 mm[Hg] Pacc 1 Work Phone: [facility] 07-07-2024 11:48-0500 Body mass index (BMI) [Ratio] 22.6 kg/m2 Dr. Chema Perry MD Work Phone: [facility] 07-07-2024 11:48-0500 Body temperature 98.6 [degF] Dr. Chema Perry MD Work Phone: [facility] 07-07-2024 11:48-0500 Body weight 45.[address] Chema Perry MD Work Phone: [facility] 07-07-2024 11:48-0500 Diastolic blood pressure 83 mm[Hg] Dr. Chema Perry MD Work Phone: [facility] 07-07-2024 11:48-0500 Heart rate 58 /min Dr. Chema Perry MD Work Phone: [facility] 07-07-2024 11:48-0500 Respiratory rate 16 /min Dr. Chema Perry MD Work Phone: [facility] 07-07-2024 11:48-0500 SaO2% (BldA) [Mass fraction] 92 % Dr. Chema Perry MD Work Phone: [facility] 07-07-2024 11:48-0500 Systolic blood pressure 160 mm[Hg] Dr. Chema Perry MD Work Phone: [facility] 07-01-2024 13:25-0500 Body height 149.9 cm Laisha Lizarraga APRN.EMERGENCY MEDICAL TECH Work Phone: [facility] 07-01-2024 13:25-0500 Body mass index (BMI) [Ratio] 19.87 kg/m2 Laisha Lizarraga APRN.EMERGENCY MEDICAL TECH Work Phone: [facility] 07-01-2024 13:25-0500 Body weight 44.63 kg Laisha Lizarraga APRN.EMERGENCY MEDICAL TECH Work Phone: [facility] 07-01-2024 13:25-0500 Diastolic blood pressure 64 mm[Hg] Laisha Lizarraga APRN.EMERGENCY MEDICAL TECH Work Phone: [facility] 07-01-2024 13:25-0500 Heart rate 80 /min Laisha Lizarraga CAMP COUNSELOR.EMERGENCY MEDICAL TECH Work Phone: [facility] 07-01-2024 13:25-0500 Systolic blood pressure 106 mm[Hg] Laisah Zia CAMP COUNSELOR.EMERGENCY MEDICAL TECH Work Phone: [facility] 06-18-2024 12:44-0400 Body height 149.9 cm Anila De Paz MD Work Phone: [facility] 06-18-2024 12:44-0400 Body mass index (BMI) [Ratio] 20.47 kg/m2 Anila De Paz MD Work Phone: [facility] 06-18-2024 12:44-0400 Body weight 46 kg Anila De Paz MD Work Phone: [facility] 06-18-2024 12:44-0400 Diastolic blood pressure 56 mm[Hg] Anila De Paz MD Work Phone: [facility] 06-18-2024 12:44-0400 Heart rate 68 /min Anila De Paz MD Work Phone: [facility] 06-18-2024 12:44-0400 Systolic blood pressure 111 mm[Hg] Anila De Paz MD Work Phone: [facility] 05-17-2024 15:07-0400 Body mass index (BMI) [Ratio] 21.17 kg/m2 Susan Squires MD Work Phone: [facility] 05-17-2024 15:07-0400 Body temperature 97.2 [degF] Susan Squires MD Work Phone: [facility] 05-17-2024 15:07-0400 Body weight 47.54 kg Susan Squires MD Work Phone: [facility] 05-17-2024 15:07-0400 Diastolic blood pressure 72 mm[Hg] Susan Squires MD Work Phone: [facility] 05-17-2024 15:07-0400 Heart rate 78 /min Susan Squires MD Work Phone: [facility] 05-17-2024 15:07-0400 SaO2% (BldA) [Mass fraction] 92 % Susan Squires MD Work Phone: [facility] 05-17-2024 15:07-0400 Systolic blood pressure 138 mm[Hg] Susan Squires MD Work Phone: [facility] 03-25-2024 13:38-0400 Body height 149.9 cm Laisha Lizarraga APRN.EMERGENCY MEDICAL TECH Work Phone: [facility] 03-25-2024 13:38-0400 Body mass index (BMI) [Ratio] 20.2 kg/m2 Laisha Lizarraga APRN.EMERGENCY MEDICAL TECH Work Phone: [facility] 03-25-2024 13:38-0400 Body weight 45.36 kg Laisha Lizarraga APRN.EMERGENCY MEDICAL TECH Work Phone: [facility] 03-25-2024 13:38-0400 Diastolic blood pressure 81 mm[Hg] Laisha Lizarraga APRN.EMERGENCY MEDICAL TECH Work Phone: [facility] 03-25-2024 13:38-0400 Heart rate 68 /min Laisha Lizarraga APRN.EMERGENCY MEDICAL TECH Work Phone: [facility] 03-25-2024 13:38-0400 Systolic blood pressure 137 mm[Hg] Laisha Lizarraga APRN.EMERGENCY MEDICAL TECH Work Phone: [facility] 11-12-2023 14:58-0400 Body height 142.[address] Chema Perry Work Phone: [facility] 11-12-2023 14:58-0400 Body mass index (BMI) [Ratio] 22.4 kg/m2 Dr. Chema Perry Work Phone: [facility] 11-12-2023 14:58-0400 Body weight 45.[address] Chema Perry Work Phone: [facility] 11-12-2023 14:58-0400 Diastolic blood pressure 71 mm[Hg] Dr. Chema Perry Work Phone: [facility] 11-12-2023 14:58-0400 Heart rate 71 /min Dr. Chema Perry Work Phone: [facility] 11-12-2023 14:58-0400 Respiratory rate 18 /min Dr. Chema Perry Work Phone: [facility] 11-12-2023 14:58-0400 SaO2% (BldA) [Mass fraction] 97 % Dr. Chema Perry Work Phone: [facility] 11-12-2023 14:58-0400 Systolic blood pressure 114 mm[Hg] Dr. Chema Perry Work Phone: [facility] 10-16-2023 14:36-0500 Diastolic blood pressure 55 mm[Hg] Laisha Lizarraga APRN.EMERGENCY MEDICAL TECH Work Phone: [facility] 10-16-2023 14:36-0500 Heart rate 79 /min Laisha Lizarraga APRN.EMERGENCY MEDICAL TECH Work Phone: [facility] 10-16-2023 14:36-0500 Systolic blood pressure 107 mm[Hg] Laisha Lizarraga APRN.EMERGENCY MEDICAL TECH Work Phone: [facility] 10-08-2023 14:26-0500 Body height 142.[address] Chema Perry Work Phone: [facility] 10-08-2023 14:26-0500 Body mass index (BMI) [Ratio] 22.1 kg/m2 Dr. Chema Perry Work Phone: [facility] 10-08-2023 14:26-0500 Body temperature 97.8 [degF] Dr. Chema Perry Work Phone: [facility] 10-08-2023 14:26-0500 Body weight 44.[address] Chema Perry Work Phone: [facility] 10-08-2023 14:26-0500 Diastolic blood pressure 75 mm[Hg] Dr. Chema Perry Work Phone: [facility] 10-08-2023 14:26-0500 Heart rate 73 /min Dr. Chema Perry Work Phone: [facility] 10-08-2023 14:26-0500 Respiratory rate 16 /min Dr. Chema Perry Work Phone: [facility] 10-08-2023 14:26-0500 SaO2% (BldA) [Mass fraction] 96 % Dr. Chema Perry Work Phone: [facility] 10-08-2023 14:26-0500 Systolic blood pressure 127 mm[Hg] Dr. Chema Perry Work Phone: [facility] 09-24-2023 09:59-0500 Body mass index (BMI) [Ratio] 23.1 kg/m2 Dr. Chema Perry Work Phone: [facility] 09-24-2023 09:59-0500 Body temperature 97.3 [degF] Dr. Chema Perry Work Phone: [facility] 09-24-2023 09:59-0500 Body weight 46.[address] Chema Perry Work Phone: [facility] 09-24-2023 09:59-0500 Diastolic blood pressure 76 mm[Hg] Dr. Chema Perry Work Phone: [facility] 09-24-2023 09:59-0500 Heart rate 77 /min Dr. Chema Perry Work Phone: [facility] 09-24-2023 09:59-0500 Respiratory rate 16 /min Dr. Chema Perry Work Phone: [facility] 09-24-2023 09:59-0500 SaO2% (BldA) [Mass fraction] 93 % Dr. Chema Perry Work Phone: [facility] 09-24-2023 09:59-0500 Systolic blood pressure 126 mm[Hg] Dr. Chema Perry Work Phone: [facility] 08-13-2023 15:36-0500 Body mass index (BMI) [Ratio] 23.6 kg/m2 Dr. Chema Perry Work Phone: [facility] 08-13-2023 15:36-0500 Body temperature 96.4 [degF] Dr. Chema Perry Work Phone: [facility] 08-13-2023 15:36-0500 Body weight 47.[address] Chema Perry Work Phone: [facility] 08-13-2023 15:36-0500 Diastolic blood pressure 83 mm[Hg] Dr. Chema Perry Work Phone: [facility] 08-13-2023 15:36-0500 Heart rate 71 /min Dr. Chema Perry Work Phone: [facility] 08-13-2023 15:36-0500 Respiratory rate 16 /min Dr. Chema Perry Work Phone: [facility] 08-13-2023 15:36-0500 SaO2% (BldA) [Mass fraction] 90 % Dr. Chema Perry Work Phone: [facility] 08-13-2023 15:36-0500 Systolic blood pressure 127 mm[Hg] Dr. Chema Perry Work Phone: [facility] 06-16-2023 13:40-0400 Body weight 48.08 kg Laisha Lizarraga APRN.EMERGENCY MEDICAL TECH Work Phone: [facility] 06-16-2023 13:40-0400 Diastolic blood pressure 72 mm[Hg] Laisha Lizarraga APRN.CNP Work Phone: [facility] 06-16-2023 13:40-0400 Heart rate 81 /min Laisha Zia BOTELLO.EMERGENCY MEDICAL TECH Work Phone: [facility] 06-16-2023 13:40-0400 Systolic blood pressure 118 mm[Hg] Laisha Zia ROSASEMERGENCY MEDICAL TECH Work Phone: [facility] 05-15-2023 14:11-0400 Body height 142.[address] Chema Perry Work Phone: [facility] 05-12-2023 11:40-0400 Body mass index (BMI) [Ratio] 24.4 kg/m2 Dr. Chema Perry Work Phone: [facility] 05-12-2023 11:40-0400 Body weight 49.[address] Chema Perry Work Phone: [facility] 05-12-2023 11:40-0400 Diastolic blood pressure 72 mm[Hg] Dr. Chema Perry Work Phone: [facility] 05-12-2023 11:40-0400 Heart rate 73 /min Dr. Chema Perry Work Phone: [facility] 05-12-2023 11:40-0400 Respiratory rate 18 /min Dr. Chema Perry Work Phone: [facility] 05-12-2023 11:40-0400 SaO2% (BldA) [Mass fraction] 96 % Dr. Chema Perry Work Phone: [facility] 05-12-2023 11:40-0400 Systolic blood pressure 111 mm[Hg] Dr. Chema Perry Work Phone: [facility] 04-07-2023 13:32-0400 Body height 142.[address] Chema Perry Work Phone: [facility] 04-07-2023 13:32-0400 Body mass index (BMI) [Ratio] 23.2 kg/m2 Dr. Chema Perry Work Phone: [facility] 04-07-2023 13:32-0400 Body temperature 96.9 [degF] Dr. Chema Perry Work Phone: [facility] 04-07-2023 13:32-0400 Body weight 46.[address] Chema Perry Work Phone: [facility] 04-07-2023 13:32-0400 Diastolic blood pressure 88 mm[Hg] Dr. Chema Perry Work Phone: [facility] 04-07-2023 13:32-0400 Heart rate 79 /min Dr. Chema Perry Work Phone: [facility] 04-07-2023 13:32-0400 Respiratory rate 18 /min Dr. Chema Perry Work Phone: [facility] 04-07-2023 13:32-0400 SaO2% (BldA) [Mass fraction] 95 % Dr. Chema Perry Work Phone: [facility] 04-07-2023 13:32-0400 Systolic blood pressure 142 mm[Hg] Dr. Chema Perry Work Phone: [facility] 04-02-2023 04:28-0400 Body height 142.[address] Chema Perry Work Phone: [facility] 04-02-2023 04:28-0400 Body mass index (BMI) [Ratio] 21.2 kg/m2 Dr. Chema Perry Work Phone: [facility] 04-02-2023 04:28-0400 Body temperature 98.3 [degF] Dr. Chema Perry Work Phone: [facility] 04-02-2023 04:28-0400 Body weight 42.[address] Chema Perry Work Phone: [facility] 04-02-2023 04:28-0400 Diastolic blood pressure 98 mm[Hg] Dr. Chema Perry Work Phone: [facility] 04-02-2023 04:28-0400 Heart rate 79 /min Dr. Chema Perry Work Phone: [facility] 04-02-2023 04:28-0400 Respiratory rate 15 /min Dr. Chema Perry Work Phone: [facility] 04-02-2023 04:28-0400 SaO2% (BldA) [Mass fraction] 99 % Dr. Chema Perry Work Phone: [facility] 04-02-2023 04:28-0400 Systolic blood pressure 184 mm[Hg] Dr. Chema Perry Work Phone: [facility] 03-24-2023 11:37-0400 Body mass index (BMI) [Ratio] 25.1 kg/m2 Dr. Chema Perry Work Phone: [facility] 03-24-2023 11:37-0400 Body temperature 98.1 [degF] Dr. Chema Perry Work Phone: [facility] 03-24-2023 11:37-0400 Body weight 50.[address] Chema Perry Work Phone: [facility] 03-24-2023 11:37-0400 Diastolic blood pressure 78 mm[Hg] Dr. Chema Perry Work Phone: [facility] 03-24-2023 11:37-0400 Heart rate 74 /min Dr. Chema Perry Work Phone: [facility] 03-24-2023 11:37-0400 Respiratory rate 12 /min Dr. Chema Perry Work Phone: [facility] 03-24-2023 11:37-0400 SaO2% (BldA) [Mass fraction] 93 % Dr. Chema Perry Work Phone: [facility] 03-24-2023 11:37-0400 Systolic blood pressure 147 mm[Hg] Dr. Chema Perry Work Phone: [facility] 02-12-2023 14:09-0400 Body height 149.[address] Chema Perry Work Phone: [facility] 02-12-2023 14:09-0400 Body mass index (BMI) [Ratio] 22.1 kg/m2 Dr. Chema Perry Work Phone: [facility] 02-12-2023 14:09-0400 Body temperature 98.2 [degF] Dr. Chema Perry Work Phone: [facility] 02-12-2023 14:09-0400 Body weight 49.[address] Chema Perry Work Phone: [facility] 02-12-2023 14:09-0400 Diastolic blood pressure 82 mm[Hg] Dr. Chema Perry Work Phone: [facility] 02-12-2023 14:09-0400 Heart rate 82 /min Dr. Chema Perry Work Phone: [facility] 02-12-2023 14:09-0400 Respiratory rate 16 /min Dr. Chema Perry Work Phone: [facility] 02-12-2023 14:09-0400 SaO2% (BldA) [Mass fraction] 91 % Dr. Chema Perry Work Phone: [facility] 02-12-2023 14:09-0400 Systolic blood pressure 147 mm[Hg] Dr. Chema Perry Work Phone: [facility] 01-29-2023 15:38-0400 Body height 149.[address] Chema Perry Work Phone: [facility] 01-29-2023 15:38-0400 Body mass index (BMI) [Ratio] 23.1 kg/m2 Dr. Chema Perry Work Phone: [facility] 01-29-2023 15:38-0400 Body temperature 97.4 [degF] Dr. Chema Perry Work Phone: [facility] 01-29-2023 15:38-0400 Body weight 51.[address] Chema Perry Work Phone: [facility] 01-29-2023 15:38-0400 Diastolic blood pressure 82 mm[Hg] Dr. Chema ePrry Work Phone: [facility] 01-29-2023 15:38-0400 Heart rate 78 /min Dr. Chema Perry Work Phone: [facility] 01-29-2023 15:38-0400 Respiratory rate 16 /min Dr. Chema Perry Work Phone: [facility] 01-29-2023 15:38-0400 SaO2% (BldA) [Mass fraction] 92 % Dr. Chema Perry Work Phone: [facility] 01-29-2023 15:38-0400 Systolic blood pressure 130 mm[Hg] Dr. Chema Perry Work Phone: [facility] 01-20-2023 09:09-0400 Body temperature 98 [degF] Dr. Chema Perry Work Phone: [facility] 01-20-2023 09:09-0400 Diastolic blood pressure 66 mm[Hg] Dr. Chema Perry Work Phone: [facility] 01-20-2023 09:09-0400 Heart rate 70 /min Dr. Chema Perry Work Phone: [facility] 01-20-2023 09:09-0400 Respiratory rate 16 /min Dr. Chema Perry Work Phone: [facility] 01-20-2023 09:09-0400 SaO2% (BldA) [Mass fraction] 94 % Dr. Chema Perry Work Phone: [facility] 01-20-2023 09:09-0400 Systolic blood pressure 108 mm[Hg] Dr. Chema Perry Work Phone: [facility] 01-15-2023 13:53-0400 Body height 149.[address] Chema Perry Work Phone: [facility] 01-15-2023 13:53-0400 Body mass index (BMI) [Ratio] 23.1 kg/m2 Dr. Chema Perry Work Phone: [facility] 01-15-2023 13:53-0400 Body temperature 97.4 [degF] Dr. Chema Perry Work Phone: [facility] 01-15-2023 13:53-0400 Body weight 51.[address] Chema Perry Work Phone: [facility] 01-15-2023 13:53-0400 Diastolic blood pressure 74 mm[Hg] Dr. Chema Perry Work Phone: [facility] 01-15-2023 13:53-0400 Heart rate 90 /min Dr. Chema Perry Work Phone: [facility] 01-15-2023 13:53-0400 Respiratory rate 17 /min Dr. Chema Perry Work Phone: [facility] 01-15-2023 13:53-0400 SaO2% (BldA) [Mass fraction] 97 % Dr. Chema Perry Work Phone: [facility] 01-15-2023 13:53-0400 Systolic blood pressure 130 mm[Hg] Dr. Chema Perry Work Phone: [facility] 01-08-2023 11:45-0400 Body mass index (BMI) [Ratio] 22.6 kg/m2 Dr. Chema Perry Work Phone: [facility] 01-08-2023 11:45-0400 Body weight 50.[address] Cehma Perry Work Phone: [facility] 01-08-2023 11:45-0400 Diastolic blood pressure 71 mm[Hg] Dr. Chema Perry Work Phone: [facility] 01-08-2023 11:45-0400 Heart rate 72 /min Dr. Chema Perry Work Phone: [facility] 01-08-2023 11:45-0400 Respiratory rate 16 /min Dr. Chema Perry Work Phone: [facility] 01-08-2023 11:45-0400 Systolic blood pressure 110 mm[Hg] Dr. Chema Perry Work Phone: [facility] 01-02-2023 14:30-0400 Body mass index (BMI) [Ratio] 22.8 kg/m2 Dr. Chema Perry Work Phone: [facility] 01-02-2023 14:30-0400 Body temperature 97.8 [degF] Dr. Chema Perry Work Phone: [facility] 01-02-2023 14:30-0400 Body weight 51.[address] Chema Perry Work Phone: [facility] 01-02-2023 14:30-0400 Diastolic blood pressure 74 mm[Hg] Dr. Chema Perry Work Phone: [facility] 01-02-2023 14:30-0400 Heart rate 82 /min Dr. Chema Perry Work Phone: [facility] 01-02-2023 14:30-0400 Respiratory rate 16 /min Dr. Chema Perry Work Phone: [facility] 01-02-2023 14:30-0400 SaO2% (BldA) [Mass fraction] 94 % Dr. Chema Perry Work Phone: [facility] 01-02-2023 14:30-0400 Systolic blood pressure 128 mm[Hg] Dr. Chema Perry Work Phone: [facility] 01-01-2023 11:15-0400 Body mass index (BMI) [Ratio] 22.2 kg/m2 Dr. Chema Perry Work Phone: [facility] 01-01-2023 11:15-0400 Body temperature 97.6 [degF] Dr. Chema Perry Work Phone: [facility] 01-01-2023 11:15-0400 Body weight 49.[address] Chema Perry Work Phone: [facility] 01-01-2023 11:15-0400 Diastolic blood pressure 77 mm[Hg] Dr. Chema Perry Work Phone: [facility] 01-01-2023 11:15-0400 Heart rate 80 /min Dr. Chema Perry Work Phone: [facility] 01-01-2023 11:15-0400 Respiratory rate 18 /min Dr. Chema Perry Work Phone: [facility] 01-01-2023 11:15-0400 SaO2% (BldA) [Mass fraction] 93 % Dr. Chema Perry Work Phone: [facility] 01-01-2023 11:15-0400 Systolic blood pressure 124 mm[Hg] Dr. Chema Perry Work Phone: [facility] 12-25-2022 14:04-0400 Body temperature 98.3 [degF] Dr. Chema Perry Work Phone: [facility] 12-25-2022 14:04-0400 Diastolic blood pressure 72 mm[Hg] Dr. Chema Perry Work Phone: [facility] 12-25-2022 14:04-0400 Heart rate 74 /min Dr. Chema Perry Work Phone: [facility] 12-25-2022 14:04-0400 Respiratory rate 17 /min Dr. Chema Perry Work Phone: [facility] 12-25-2022 14:04-0400 SaO2% (BldA) [Mass fraction] 91 % Dr. Chema Perry Work Phone: [facility] 12-25-2022 14:04-0400 Systolic blood pressure 116 mm[Hg] Dr. Chema Perry Work Phone: [facility] 11-23-2022 11:14-0400 Body height 149.[address] Chema Perry Work Phone: [facility] 11-23-2022 11:14-0400 Body mass index (BMI) [Ratio] 23 kg/m2 Dr. Chema Perry Work Phone: [facility] [facility] 11-23-2022 11:14-0400 Body temperature 97.8 [degF] Dr. Chema Perry Work Phone: [facility] 11-23-2022 11:14-0400 Body weight 51.[address] Chema Perry Work Phone: [facility] 11-13-2022 12:59-0400 Body weight 49.9 kg Laisha Lizarraga APRN.EMERGENCY MEDICAL TECH Work Phone: [facility] 11-13-2022 12:59-0400 Diastolic blood pressure 69 mm[Hg] Laisha Lizarraga APRN.EMERGENCY MEDICAL TECH Work Phone: [facility] 11-13-2022 12:59-0400 Heart rate 77 /min Laisha Lizarraga APRN.EMERGENCY MEDICAL TECH Work Phone: [facility] 11-13-2022 12:59-0400 Systolic blood pressure 113 mm[Hg] Laisha Lizarraga APRN.EMERGENCY MEDICAL TECH Work Phone: [facility] 10-23-2022 13:11-0500 Body temperature 98.5 [degF] Dr. Chema Perry Work Phone: [facility] 10-23-2022 13:11-0500 Diastolic blood pressure 78 mm[Hg] Dr. Chema Perry Work Phone: [facility] 10-23-2022 13:11-0500 Heart rate 76 /min Dr. Chema Perry Work Phone: [facility] 10-23-2022 13:11-0500 Respiratory rate 14 /min Dr. Chema Perry Work Phone: [facility] 10-23-2022 13:11-0500 SaO2% (BldA) [Mass fraction] 98 % Dr. Chema Perry Work Phone: [facility] 10-23-2022 13:11-0500 Systolic blood pressure 122 mm[Hg] Dr. Chema Perry Work Phone: [facility] 10-21-2022 13:08-0500 Body temperature 98.2 [degF] Dr. Chema Perry Work Phone: [facility] 10-21-2022 13:08-0500 Body weight 54.[address] Chema Perry Work Phone: [facility] 10-21-2022 13:08-0500 Diastolic blood pressure 74 mm[Hg] Dr. Chema Perry Work Phone: [facility] 10-21-2022 13:08-0500 Heart rate 87 /min Dr. Chema Perry Work Phone: [facility] 10-21-2022 13:08-0500 Respiratory rate 16 /min Dr. Chema Perry Work Phone: [facility] 10-21-2022 13:08-0500 SaO2% (BldA) [Mass fraction] 93 % Dr. Chema Perry Work Phone: [facility] 10-21-2022 13:08-0500 Systolic blood pressure 128 mm[Hg] Dr. Chema Perry Work Phone: [facility] 10-16-2022 17:21-0500 Body height 149.[address] Chema Perry Work Phone: [facility] 10-16-2022 17:21-0500 Body mass index (BMI) [Ratio] 24.1 kg/m2 Dr. Chema Perry Work Phone: [facility] 10-16-2022 17:21-0500 Body temperature 98.2 [degF] Dr. Chema Perry Work Phone: [facility] 10-16-2022 17:21-0500 Body weight 54.[address] Chema Perry Work Phone: [facility] 10-16-2022 17:21-0500 Diastolic blood pressure 92 mm[Hg] Dr. Chema Perry Work Phone: [facility] 10-16-2022 17:21-0500 Heart rate 81 /min Dr. Chema Perry Work Phone: [facility] 10-16-2022 17:21-0500 Respiratory rate 14 /min Dr. Chema Perry Work Phone: [facility] 10-16-2022 17:21-0500 SaO2% (BldA) [Mass fraction] 94 % Dr. Chema Perry Work Phone: [facility] 10-16-2022 17:21-0500 Systolic blood pressure 160 mm[Hg] Dr. Chema Perry Work Phone: [facility] 09-21-2022 10:53-0500 Body temperature 98.2 [degF] Dr. Chema Perry Work Phone: [facility] 09-21-2022 10:53-0500 Diastolic blood pressure 60 mm[Hg] Dr. Chema Perry Work Phone: [facility] 09-21-2022 10:53-0500 Heart rate 83 /min Dr. Chema Perry Work Phone: [facility] 09-21-2022 10:53-0500 Respiratory rate 14 /min Dr. Chema Perry Work Phone: [facility] 09-21-2022 10:53-0500 SaO2% (BldA) [Mass fraction] 95 % Dr. Chema Perry Work Phone: [facility] 09-21-2022 10:53-0500 Systolic blood pressure 104 mm[Hg] Dr. Chema Perry Work Phone: [facility] 07-24-2022 15:46-0500 Body temperature 96.8 [degF] Dr. Chema Perry Work Phone: [facility] 07-24-2022 15:46-0500 Body weight 56.[address] Chema Perry Work Phone: [facility] 07-24-2022 15:46-0500 Diastolic blood pressure 86 mm[Hg] Dr. Chema Perry Work Phone: [facility] 07-24-2022 15:46-0500 Heart rate 90 /min Dr. Chema Perry Work Phone: [facility] 07-24-2022 15:46-0500 Respiratory rate 16 /min Dr. Chema Perry Work Phone: [facility] 07-24-2022 15:46-0500 SaO2% (BldA) [Mass fraction] 91 % Dr. Chema Perry Work Phone: [facility] 07-24-2022 15:46-0500 Systolic blood pressure 134 mm[Hg] Dr. Chema Perry Work Phone: [facility] 07-22-2022 14:41-0500 Body height 149.[address] Arun Ramos Work Phone: [facility] 07-22-2022 14:41-0500 Body mass index (BMI) [Ratio] 25.2 kg/m2 Dr. rAun Ramos Work Phone: [facility] 07-22-2022 14:41-0500 Body temperature 98 [degF] Dr. Arun Ramos Work Phone: [facility] 07-22-2022 14:41-0500 Body weight 56.[address] Arun Ramos Work Phone: [facility] 07-22-2022 14:41-0500 Diastolic blood pressure 67 mm[Hg] Dr. Arun Ramos Work Phone: 2(794)114-587993 [place] [address] 07-22-2022 14:41-0500 Heart rate 90 /min Dr. Arun Ramos Work Phone: 6(288)837-412993 [place] [address] 07-22-2022 14:41-0500 Respiratory rate 18 /min Dr. Arun Ramos Work Phone: 4(166)667-233688 [address] 07-22-2022 14:41-0500 SaO2% (BldA) [Mass fraction] 95 % Dr. Arun Ramos Work Phone: 7(436)934-523093 [place] [address] 07-22-2022 14:41-0500 Systolic blood pressure 109 mm[Hg] Dr. Arun Ramos Work Phone: 3(085)941-860093 [place] [address] 07-13-2022 03:28-0500 Diastolic blood pressure 68 mm[Hg] Dr. Arun Ramos Work Phone: 3(203)752-900293 [place] [address] 07-13-2022 03:28-0500 Heart rate 78 /min Dr. Arun Ramos Work Phone: 7(243)745-747193 [place] [address] 07-13-2022 03:28-0500 Respiratory rate 16 /min Dr. Arun Ramos Work Phone: 3(225)273-840993 [place] [address] 07-13-2022 03:28-0500 SaO2% (BldA) [Mass fraction] 97 % Dr. Arun Ramos Work Phone: [facility] 07-13-2022 03:28-0500 Systolic blood pressure 135 mm[Hg] Dr. Arun Ramos Work Phone: 6(815)807-211293 [place] [address] 07-13-2022 00:21-0500 Body height 149.[address] Arun Ramos Work Phone: [facility] Work Phone: 07-13-2022 00:21-0500 Body mass index (BMI) [Ratio] 25.7 kg/m2 Dr. Arun Ramos Work Phone: [facility] 07-13-2022 00:21-0500 Body temperature 97.8 [degF] Dr. Arun Ramos Work Phone: [facility] 07-13-2022 00:21-0500 Body weight 57.[address] Arun Ramos Work Phone: 4(358)720-845693 [place] [address] 07-07-2022 09:10-0500 Body mass index (BMI) [Ratio] 24.4 kg/m2 Dr. Arun Ramos Work Phone: 3(771)617-422493 [place] [address] 07-07-2022 09:10-0500 Body temperature 99.2 [degF] Dr. Arun Ramos Work Phone: [facility] 07-07-2022 09:10-0500 Body weight 54.[address] Arun Ramos Work Phone: 9(277)735-905793 [place] [address] 07-07-2022 09:10-0500 Diastolic blood pressure 70 mm[Hg] Dr. Arun Ramos Work Phone: [facility] 07-07-2022 09:10-0500 Heart rate 81 /min Dr. Arun Ramos Work Phone: [facility] 07-07-2022 09:10-0500 Respiratory rate 16 /min Dr. Arun Ramos Work Phone: [facility] 07-07-2022 09:10-0500 SaO2% (BldA) [Mass fraction] 96 % Dr. Arun Ramos Work Phone: [facility] 07-07-2022 09:10-0500 Systolic blood pressure 118 mm[Hg] Dr. Arun Ramos Work Phone: [facility] 07-04-2022 13:35-0500 Body temperature 97.9 [degF] Dr. Arun Ramos Work Phone: 4(369)856-936993 [place] [address] 07-04-2022 13:35-0500 Body weight 56.[address] Arun Ramos Work Phone: 7(127)050-160493 [place] [address] 07-04-2022 13:35-0500 Diastolic blood pressure 81 mm[Hg] Dr. Arun Ramos Work Phone: 1(188)264-957500 [place] [address] 07-04-2022 13:35-0500 Heart rate 87 /min Dr. Arun Ramos Work Phone: 5(440)414-488700 [place] [address] 07-04-2022 13:35-0500 Respiratory rate 18 /min Dr. Arun Ramos Work Phone: 8(860)371-627900 [place] [address] 07-04-2022 13:35-0500 SaO2% (BldA) [Mass fraction] 90 % Dr. Arun Ramos Work Phone: 8(964)601-138600 [place] [address] 07-04-2022 13:35-0500 Systolic blood pressure 132 mm[Hg] Dr. Arun Ramos Work Phone: 0(053)256-011900 [place] [address] 06-25-2022 13:14-0500 Body mass index (BMI) [Ratio] 25.2 kg/m2 Dr. Arun Ramos Work Phone: 8(798)244-891300 [place] [address] 06-25-2022 13:14-0500 Body temperature 97.1 [degF] Dr. Arun Ramos Work Phone: 2(757)021-563200 [place] [address] 06-25-2022 13:14-0500 Body weight 56.[address] Arun Ramos Work Phone: 4(646)161-835700 [place] [address] 06-25-2022 13:14-0500 Diastolic blood pressure 70 mm[Hg] Dr. Arun Ramos Work Phone: 7(569)419-049200 [place] [address] 06-25-2022 13:14-0500 Heart rate 78 /min Dr. Arun Ramos Work Phone: 7(058)165-857200 [place] [address] 06-25-2022 13:14-0500 Respiratory rate 18 /min Dr. Arun Ramos Work Phone: 2(848)553-164400 [place] [address] 06-25-2022 13:14-0500 SaO2% (BldA) [Mass fraction] 94 % Dr. Arun Ramos Work Phone: [facility] 06-25-2022 13:14-0500 Systolic blood pressure 122 mm[Hg] Dr. Arnu Ramos Work Phone: [facility] 06-07-2022 13:04-0400 Body mass index (BMI) [Ratio] 24.7 kg/m2 Dr. Arun Ramos Work Phone: [facility] 06-07-2022 13:04-0400 Body weight 55.[address] Arun Ramos Work Phone: 4(386)257-501393 [place] [address] 06-07-2022 13:04-0400 Diastolic blood pressure 70 mm[Hg] Dr. Arun Ramos Work Phone: 0(167)178-135393 [place] [address] 06-07-2022 13:04-0400 Heart rate 80 /min Dr. Arun Ramos Work Phone: [facility] 06-07-2022 13:04-0400 Respiratory rate 18 /min Dr. Arun Ramos Work Phone: [facility] 06-07-2022 13:04-0400 Systolic blood pressure 122 mm[Hg] Dr. Arun Ramos Work Phone: [facility] 05-13-2022 14:11-0400 Body temperature 98 [degF] Dr. Arun Ramos Work Phone: [facility] Work Phone: 05-13-2022 14:11-0400 Body weight 55.[address] Arun Ramos Work Phone: [facility] Work Phone: 05-13-2022 14:11-0400 Diastolic blood pressure 89 mm[Hg] Dr. Arun Ramos Work Phone: [facility] Work Phone: 05-13-2022 14:11-0400 Heart rate 87 /min Dr. Arun Ramos Work Phone: [facility] Work Phone: 05-13-2022 14:11-0400 Respiratory rate 16 /min Dr. Arun Ramos Work Phone: [facility] Work Phone: 05-13-2022 14:11-0400 SaO2% (BldA) [Mass fraction] 95 % Dr. Arun Ramos Work Phone: [facility] Work Phone: 05-13-2022 14:11-0400 Systolic blood pressure 149 mm[Hg] Dr. Arun Ramos Work Phone: [facility] Work Phone: 04-25-2022 11:37-0400 Body temperature 97 [degF] Dr. Arun Ramos Work Phone: [facility] Work Phone: 04-25-2022 11:37-0400 Body weight 56.[address] Arun Ramos Work Phone: [facility] Work Phone: 04-25-2022 11:37-0400 Diastolic blood pressure 77 mm[Hg] Dr. Arun Ramos Work Phone: [facility] Work Phone: 04-25-2022 11:37-0400 Heart rate 76 /min Dr. Arun Ramos Work Phone: [facility] Work Phone: 04-25-2022 11:37-0400 Respiratory rate 18 /min Dr. Arun Ramos Work Phone: [facility] Work Phone: 04-25-2022 11:37-0400 SaO2% (BldA) [Mass fraction] 90 % Dr. Arun Ramos Work Phone: [facility] Work Phone: 04-25-2022 11:37-0400 Systolic blood pressure 131 mm[Hg] Dr. Arun Ramos Work Phone: [facility] Work Phone: 04-11-2022 12:48-0400 Body weight 53.07 kg Laisha Zia BOTELLO.EMERGENCY MEDICAL TECH Work Phone: [facility] 04-11-2022 12:48-0400 Diastolic blood pressure 77 mm[Hg] Laisha Lizarraga APRN.EMERGENCY MEDICAL TECH Work Phone: [facility] 04-11-2022 12:48-0400 Heart rate 75 /min Laisha Zia BOTELLO.EMERGENCY MEDICAL TECH Work Phone: [facility] 04-11-2022 12:48-0400 Systolic blood pressure 117 mm[Hg] Laisha Zia BOTELLO.EMERGENCY MEDICAL TECH Work Phone: [facility] 03-27-2022 05:59-0400 Body mass index (BMI) [Ratio] 25.1 kg/m2 Dr. Arun Ramos Work Phone: [facility] Work Phone: 03-27-2022 05:59-0400 Body temperature 98.6 [degF] Dr. Arun Ramos Work Phone: [facility] Work Phone: 03-27-2022 05:59-0400 Body weight 56.[address] Arun Ramos Work Phone: [facility] Work Phone: 03-27-2022 05:59-0400 Diastolic blood pressure 68 mm[Hg] Dr. Arun Ramos Work Phone: [facility] Work Phone: 03-27-2022 05:59-0400 Heart rate 90 /min Dr. Arun Ramos Work Phone: [facility] Work Phone: 03-27-2022 05:59-0400 Respiratory rate 16 /min Dr. Arun Ramos Work Phone: [facility] Work Phone: 03-27-2022 05:59-0400 SaO2% (BldA) [Mass fraction] 92 % Dr. Arun Ramos Work Phone: [facility] Work Phone: 03-27-2022 05:59-0400 Systolic blood pressure 111 mm[Hg] Dr. Arun Ramos Work Phone: [facility] Work Phone: 03-21-2022 14:11-0400 Body mass index (BMI) [Ratio] 24.9 kg/m2 Dr. Arun Ramos Work Phone: [facility] Work Phone: 03-21-2022 14:11-0400 Body temperature 97.6 [degF] Dr. Arun Ramos Work Phone: [facility] Work Phone: 03-21-2022 14:11-0400 Body weight 56.[address] Arun Ramos Work Phone: [facility] Work Phone: 03-21-2022 14:11-0400 Diastolic blood pressure 82 mm[Hg] Dr. Arun Ramos Work Phone: [facility] Work Phone: 03-21-2022 14:11-0400 Heart rate 80 /min Dr. Arun Ramos Work Phone: [facility] Work Phone: 03-21-2022 14:11-0400 Respiratory rate 16 /min Dr. Arun Ramos Work Phone: [facility] Work Phone: 03-21-2022 14:11-0400 SaO2% (BldA) [Mass fraction] 98 % Dr. Arun Ramos Work Phone: [facility] Work Phone: 03-21-2022 14:11-0400 Systolic blood pressure 142 mm[Hg] Dr. Arun Ramos Work Phone: [facility] Work Phone: 03-15-2022 19:42-0400 Body height 149.[address] Arun Ramos Work Phone: [facility] Work Phone: 03-15-2022 19:42-0400 Body mass index (BMI) [Ratio] 26.4 kg/m2 Dr. Arun Ramos Work Phone: [facility] Work Phone: 03-15-2022 19:42-0400 Body temperature 98 [degF] Dr. Arun Ramos Work Phone: [facility] Work Phone: 03-15-2022 19:42-0400 Body weight 59.[address] Arun Ramos Work Phone: [facility] Work Phone: 03-15-2022 19:42-0400 Diastolic blood pressure 83 mm[Hg] Dr. Arun Ramos Work Phone: [facility] Work Phone: 03-15-2022 19:42-0400 Heart rate 84 /min Dr. Arun Ramos Work Phone: [facility] Work Phone: 03-15-2022 19:42-0400 Respiratory rate 18 /min Dr. Arun Ramos Work Phone: [facility] Work Phone: 03-15-2022 19:42-0400 SaO2% (BldA) [Mass fraction] 93 % Dr. Arun Ramos Work Phone: [facility] Work Phone: 03-15-2022 19:42-0400 Systolic blood pressure 144 mm[Hg] Dr. Arun Ramos Work Phone: [facility] Work Phone: 02-15-2022 17:00-0400 Respiratory rate 14 /min Dr. Arun Ramos Work Phone: [facility] Work Phone: 02-15-2022 17:00-0400 SaO2% (BldA) [Mass fraction] 99 % Dr. Arun Ramos Work Phone: [facility] Work Phone: 02-15-2022 15:00-0400 Diastolic blood pressure 81 mm[Hg] Dr. Arun Ramos Work Phone: [facility] Work Phone: 02-15-2022 15:00-0400 Heart rate 67 /min Dr. Arun Ramos Work Phone: [facility] Work Phone: 02-15-2022 15:00-0400 Systolic blood pressure 122 mm[Hg] Dr. Arun Ramos Work Phone: [facility] Work Phone: 02-15-2022 09:48-0400 Body height 149.[address] Arun Ramos Work Phone: [facility] Work Phone: 02-15-2022 09:48-0400 Body mass index (BMI) [Ratio] 24.9 kg/m2 Dr. Arun Ramos Work Phone: [facility] Work Phone: 02-15-2022 09:48-0400 Body temperature 98.3 [degF] Dr. Arun Ramos Work Phone: [facility] Work Phone: 02-15-2022 09:48-0400 Body weight [address] Arun Ramos Work Phone: [facility] Work Phone: 01-23-2022 10:42-0400 Body weight 53.98 kg Mitchel Muse MD Work Phone: [facility] 01-23-2022 10:42-0400 Diastolic blood pressure 72 mm[Hg] Mitchel Muse MD Work Phone: [facility] 01-23-2022 10:42-0400 Heart rate 82 /min Mitchel Muse MD Work Phone: [facility] 01-23-2022 10:42-0400 Systolic blood pressure 114 mm[Hg] Mitchel Muse MD Work Phone: [facility] 01-10-2022 13:19-0400 Body height 152.[address] Arun Ramos Work Phone: [facility] Work Phone: 01-10-2022 13:19-0400 Body mass index (BMI) [Ratio] 23.4 kg/m2 Dr. Arun Ramos Work Phone: [facility] Work Phone: 01-10-2022 13:19-0400 Body temperature 97.4 [degF] Dr. Arun Ramos Work Phone: [facility] Work Phone: 01-10-2022 13:19-0400 Body weight 54.[address] Arun Ramos Work Phone: [facility] Work Phone: 01-10-2022 13:19-0400 Diastolic blood pressure 76 mm[Hg] Dr. Arun Ramos Work Phone: [facility] Work Phone: 01-10-2022 13:19-0400 Heart rate 84 /min Dr. Arun Ramos Work Phone: [facility] Work Phone: 01-10-2022 13:19-0400 Respiratory rate 16 /min Dr. Arun Ramos Work Phone: [facility] Work Phone: 01-10-2022 13:19-0400 SaO2% (BldA) [Mass fraction] 92 % Dr. Arun Ramos Work Phone: [facility] Work Phone: 01-10-2022 13:19-0400 Systolic blood pressure 115 mm[Hg] Dr. Arun Ramos Work Phone: [facility] Work Phone: 11-13-2021 11:13-0400 Body weight 56.25 kg Laisha Lizarraga APRN.EMERGENCY MEDICAL TECH Work Phone: [facility] 11-13-2021 11:13-0400 Diastolic blood pressure 68 mm[Hg] Laisha Lizarraga APRN.EMERGENCY MEDICAL TECH Work Phone: [facility] 11-13-2021 11:13-0400 Heart rate 83 /min Laisha Lizarraga APRN.EMERGENCY MEDICAL TECH Work Phone: [facility] 11-13-2021 11:13-0400 Systolic blood pressure 125 mm[Hg] Laisha Lizarraga APRN.EMERGENCY MEDICAL TECH Work Phone: [facility] 11-07-2021 14:12-0400 Body height 149.[address] Arun Ramos Work Phone: [facility] Work Phone: 11-07-2021 14:12-0400 Body mass index (BMI) [Ratio] 23.2 kg/m2 Dr. Arun Ramos Work Phone: [facility] Work Phone: 11-07-2021 14:12-0400 Body temperature 97.2 [degF] Dr. Arun Ramos Work Phone: [facility] Work Phone: 11-07-2021 14:12-0400 Body weight 52.[address] Arun Ramos Work Phone: [facility] Work Phone: 11-07-2021 14:12-0400 Diastolic blood pressure 81 mm[Hg] Dr. Arun Ramos Work Phone: [facility] Work Phone: 11-07-2021 14:12-0400 Heart rate 100 /min Dr. Arun Ramos Work Phone: [facility] Work Phone: 11-07-2021 14:12-0400 Respiratory rate 19 /min Dr. Arun Ramos Work Phone: [facility] Work Phone: 11-07-2021 14:12-0400 SaO2% (BldA) [Mass fraction] 91 % Dr. Arun Ramos Work Phone: [facility] Work Phone: 11-07-2021 14:12-0400 Systolic blood pressure 110 mm[Hg] Dr. Arun Ramos Work Phone: [facility] Work Phone: 10-08-2021 19:03-0500 Body temperature 97.7 [degF] Dr. Arun Ramos Work Phone: [facility] Work Phone: 10-08-2021 19:03-0500 Diastolic blood pressure 88 mm[Hg] Dr. Arun Ramos Work Phone: [facility] Work Phone: 10-08-2021 19:03-0500 Heart rate 81 /min Dr. Arun Ramos Work Phone: [facility] Work Phone: 10-08-2021 19:03-0500 Respiratory rate 20 /min Dr. Arun Ramos Work Phone: [facility] Work Phone: 10-08-2021 19:03-0500 SaO2% (BldA) [Mass fraction] 92 % Dr. Arun Ramos Work Phone: [facility] Work Phone: 10-08-2021 19:03-0500 Systolic blood pressure 134 mm[Hg] Dr. Arun Ramos Work Phone: [facility] Work Phone: 10-06-2021 15:46-0500 Body weight 55.[address] Arun Ramos Work Phone: [facility] Work Phone: 10-05-2021 17:32-0500 Body mass index (BMI) [Ratio] 24.8 kg/m2 Dr. Arun Ramos Work Phone: [facility] Work Phone: 10-04-2021 10:45-0500 Body temperature 97.3 [degF] Dr. Arun Ramos Work Phone: [facility] Work Phone: 10-04-2021 10:45-0500 Diastolic blood pressure 80 mm[Hg] Dr. Arun Ramos Work Phone: [facility] Work Phone: 10-04-2021 10:45-0500 Heart rate 90 /min Dr. Arun Ramos Work Phone: [facility] Work Phone: 10-04-2021 10:45-0500 Respiratory rate 20 /min Dr. Arun Ramos Work Phone: [facility] Work Phone: 10-04-2021 10:45-0500 SaO2% (BldA) [Mass fraction] 92 % Dr. Arun Ramos Work Phone: [facility] Work Phone: 10-04-2021 10:45-0500 Systolic blood pressure 134 mm[Hg] Dr. Arun Ramos Work Phone: [facility] Work Phone: 10-02-2021 09:01-0500 Body weight 57.[address] Arun Ramos Work Phone: [facility] Work Phone: 09-27-2021 19:53-0500 Inhaled oxygen concentration 21 % Dr. Arun Ramos Work Phone: [facility] Work Phone: 09-04-2021 12:15-0500 Body mass index (BMI) [Ratio] 27 kg/m2 Dr. Arun Ramos Work Phone: [facility] Work Phone: 09-04-2021 07:30-0500 Body temperature 97.8 [degF] Dr. Arun Ramos Work Phone: [facility] Work Phone: 09-04-2021 07:30-0500 Diastolic blood pressure 85 mm[Hg] Dr. Arun Ramos Work Phone: [facility] Work Phone: 09-04-2021 07:30-0500 Heart rate 79 /min Dr. Arun Ramos Work Phone: [facility] Work Phone: 09-04-2021 07:30-0500 Respiratory rate 18 /min Dr. Arun Ramos Work Phone: [facility] Work Phone: 09-04-2021 07:30-0500 SaO2% (BldA) [Mass fraction] 94 % Dr. Arun Ramos Work Phone: [facility] Work Phone: 09-04-2021 07:30-0500 Systolic blood pressure 154 mm[Hg] Dr. Arun Ramos Work Phone: [facility] Work Phone: 09-02-2021 18:34-0500 Body mass index (BMI) [Ratio] 27.3 kg/m2 Dr. Arun Ramos Work Phone: [facility] Work Phone: 09-02-2021 18:34-0500 Body weight 61.[address] Arun Ramos Work Phone: [facility] Work Phone: 09-01-2021 17:54-0500 Diastolic blood pressure 85 mm[Hg] Dr. Arun Ramos Work Phone: [facility] Work Phone: 09-01-2021 17:54-0500 Heart rate 74 /min Dr. Arun Ramos Work Phone: [facility] Work Phone: 09-01-2021 17:54-0500 Respiratory rate 19 /min Dr. Arun Ramos Work Phone: [facility] Work Phone: 09-01-2021 17:54-0500 SaO2% (BldA) [Mass fraction] 92 % Dr. Arun Ramos Work Phone: [facility] Work Phone: 09-01-2021 17:54-0500 Systolic blood pressure 156 mm[Hg] Dr. Arun Ramos Work Phone: [facility] Work Phone: 09-01-2021 16:32-0500 Body mass index (BMI) [Ratio] 24 kg/m2 Dr. Arun Ramos Work Phone: [facility] Work Phone: 09-01-2021 16:32-0500 Body temperature 98.5 [degF] Dr. Arun Ramos Work Phone: [facility] Work Phone: 09-01-2021 16:32-0500 Body weight 63.[address] Arun Ramos Work Phone: [facility] Work Phone: 08-09-2021 11:59-0500 Body mass index (BMI) [Ratio] 28.3 kg/m2 Dr. Arun Ramos Work Phone: [facility] Work Phone: 08-09-2021 11:59-0500 Body temperature 97.5 [degF] Dr. Arun Ramos Work Phone: [facility] Work Phone: 08-09-2021 11:59-0500 Body weight 63.[address] Arun Ramos Work Phone: [facility] Work Phone: 08-09-2021 11:59-0500 Diastolic blood pressure 86 mm[Hg] Dr. Arun Ramos Work Phone: [facility] Work Phone: 08-09-2021 11:59-0500 Heart rate 80 /min Dr. Arun Ramos Work Phone: [facility] Work Phone: 08-09-2021 11:59-0500 Respiratory rate 16 /min Dr. Arun Ramos Work Phone: [facility] Work Phone: 08-09-2021 11:59-0500 SaO2% (BldA) [Mass fraction] 98 % Dr. Arun Ramos Work Phone: [facility] Work Phone: 08-09-2021 11:59-0500 Systolic blood pressure 136 mm[Hg] Dr. Arun Ramos Work Phone: [facility] Work Phone: Encounters Encounter Date Encounter Type Care Provider Facility Start: 02-03-2025 End: 02-03-2025 Emergency department patient visit Dr. Chema Perry MD Work Phone: -Emergency Department Work Phone: Start: 02-01-2025 ambulatory Chema Perry Facility:[facility] Start: 02-01-[address] 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, psychotic disturbance, mood disturbance, or anxiety (HCC) (Primary Dx); Physical deconditioning; Gait instability; Fine motor impairment; Dizziness; Cognitive communication deficit; Idiopathic peripheral neuropathy; Restless legs syndrome Start: 12-23-2024 End: 12-23-2024 ambulatory LAISHA LIZARRAGA Facility:[facility] Start: 12-20-2024 End: 12-20-2024 Patient encounter procedure [...] Start: 12-20-2024 End: 12-20-2024 ambulatory SOURAV MARCIAL Facility:[facility] Start: 12-19-2024 End: 12-19-2024 Patient encounter procedure Young VALENCIA Work Phone: [facility] Comment on above: Skin tear of right forearm without compl ication, initial encounter (Primary Dx) Start: 12-19-2024 End: 12-19-2024 ambulatory YOUNG LORD Facility:[facility] Start: 12-16-2024 End: 12-16-2024 Refill Sourav Marcial MD Work Phone: Cardiology Comment on above: Refill Request Start: 12-09-2024 End: 12-09-2024 ambulatory LUH DEAN Facility:[facility] Start: 12-03-2024 End: 12-03-2024 ambulatory ANILA DE PAZ Facility:[facility] Start: 12-03-2024 End: 12-03-2024 Patient encounter procedure Anila De Paz MD Work Phone: General Surgery Comment on above: Hiatal hernia (Primary Dx) Start: 11-26-2024 End: 11-26-2024 Patient encounter procedure Radha Hesson OTR/L Work Phone: [facility] Comment on above: Fine motor impairment (Primary Dx); Weakness; Lack of coordination; Decreased activities of daily living (ADL) Start: 11-26-2024 End: 11-26-2024 ambulatory Radha Hesson OTR/L Work Phone: [facility] Start: 11-19-2024 End: 11-19-2024 Patient encounter procedure Radha Hesson OTR/L Work Phone: [facility] Comment on above: Fine motor impairment (Primary Dx); Weakness; Lack of coordination Start: 11-19-2024 End: 11-19-2024 ambulatory Radha Hesson OTR/L Work Phone: [facility] Start: 11-17-2024 End: 11-17-2024 Orders Only Raquel Null MD Work Phone: General Surgery Comment on above: Dilation of biliary tract (Primary Dx) Start: 11-15-2024 End: 11-17-2024 Evaluation and management of inpatient ANILA DE PAZ Facility:[facility] Start: 11-15-2024 End: 11-15-2024 Telephone encounter Taylor Forrest RN General Surgery Comment on above: Generalized abdominal pain (Primary Dx); Diarrhea, unspecified type Start: 11-12-2024 End: 11-12-2024 Patient encounter procedure Radha Hesson OTR/L Work Phone: [facility] Comment on above: Fine motor impairment (Primary Dx); Decreased activities of daily living (ADL); Lack of coordination; Weakness Start: 11-12-2024 End: 11-12-2024 ambulatory Radha Hesson OTR/L Work Phone: [facility] Start: 11-12-2024 End: 11-12-2024 Telephone encounter Pippa Fox RN General Surgery Start: 11-11-2024 End: 11-11-2024 [facility] Facility:[facility] Start: 11-11-2024 End: 11-11-2024 Subsequent hospital visit by physician [facility] Cat Scan Comment on above: Nausea [R11.0] Start: 11-09-2024 End: 11-09-[address] Susan Emery DO Work Phone: [facility] Work Phone: Start: 11-09-2024 End: 11-09-[address] Chema Perry MD -Radiology, [facility] Work Phone: Start: 11-08-2024 End: 11-09-2024 [facility] Facility:[facility] Start: 11-08-2024 End: 11-08-2024 E-mail encounter from caregiver Taylor Forrest RN General Surgery Start: 11-08-2024 End: 11-08-2024 Follow-up encounter Taylor Forrest RN General Surgery Comment on above: Follow-up on Questions Start: 11-05-2024 End: 11-05-2024 Patient encounter procedure Radha Street OTR/L Work Phone: [facility] Comment on above: Fine motor impairment (Primary Dx); Decreased activities of daily living (ADL); Lack of coordination; Weakness Start: 11-05-2024 End: 11-05-[address] OTR/L Work Phone: [facility] Start: 11-03-2024 End: 11-03-2024 Patient encounter procedure Denice Jacobs PA-C Work Phone: Neurology Comment on above: Degeneration of intervertebral disc of l umbar region, unspecified whether pain present (Primary Dx); Left leg paresthesias; Right leg paresthesias; Ulnar neuropathy of right upper extremity Start: 11-03-2024 End: 11-03-2024 ambulatory DENICE JACOBS Facility:[facility] Start: 11-02-2024 End: 11-02-2024 Admission to same day surgery center Anila De Paz MD Work Phone: General Surgery Start: 11-02-2024 End: 11-02-2024 E-mail encounter from caregiver Anila De Paz MD Work Phone: General Surgery Start: 11-01-2024 End: 11-01-2024 ambulatory HUMZA CAMEJO Facility:[facility] Start: 11-01-2024 End: 11-01-2024 Patient encounter procedure [...] 10-29-2024 End: 10-29-2024 ambulatory ANILA DE PAZ Facility:[facility] Start: 10-29-2024 End: 10-29-2024 Patient encounter procedure Radha Street OTR/L Work Phone: [facility] Comment on above: Decreased activities of daily living (AD L) (Primary Dx); Fine motor impairment; Lack of coordination; Weakness Start: 10-29-2024 End: 10-29-[address] OTR/L Work Phone: [facility] Start: 10-22-2024 End: 10-22-2024 Patient encounter procedure Sandra SUMNER -[facility] Work Phone: Start: 10-22-2024 End: 10-22-2024 ambulatory Chema Perry Facility:[facility] Start: 10-18-2024 End: 10-18-[address] Chema Perry MD Work Phone: [facility] Work Phone: Start: 10-18-2024 End: 10-18-[address] Chema Perry MD -Outpatient Breast Imaging Work Phone: Start: 10-17-2024 End: 10-18-2024 ambulatory aLisha Lizarraga APRN.CNP Work Phone: Neurology Comment on above: Primary Care Phyiscian (PCP) Start: 10-14-2024 End: 10-14-[address] Chema Perry MD -[facility] Work Phone: Start: 10-14-2024 End: 10-14-2024 ambulatory Chema Perry Facility[place] Start: 10-13-2024 End: 10-13-2024 ambulatory LAISHA LIZARRAGA Facility:[facility] Start: 10-13-2024 End: 10-13-2024 Office outpatient visit 40 minutes Laisha Lizarraga APRN.EMERGENCY MEDICAL TECH Work Phone: Neurology Comment on above: Mild [...] Start: 10-08-2024 End: 10-08-2024 ambulatory ANILA ZANDRA Facility:[facility] Start: 09-20-2024 End: 09-23-2024 Evaluation and management of inpatient ANILA DE PAZ Facility:[facility] Start: 09-18-2024 End: 09-18-2024 Emergency department patient visit Dr. Susan Emery DO -Emergency Department Work Phone: Start: 09-14-2024 End: 09-14-2024 ambulatory CHEMA PERRY Facility:[facility] Start: 09-14-2024 Encounter for other preprocedural examination ANILA DE PAZ [facility] Start: 09-14-2024 End: 09-14-2024 Office consultation new/estab patient 80 min Pacc Eldena 1 Work Phone: Pre Anesthesia Comment on [...] 09-14-2024 End: 09-14-2024 Preprocedural examination done Pacc Eldena 1 Work Phone: [facility] Work Phone: Start: 09-14-2024 End: 09-14-2024 [facility] Facility:[facility] Start: 09-14-2024 Encounter for other preprocedural examination [facility] Start: 09-13-2024 End: 09-13-2024 Orders Only Alisa Haile MD Work Phone: Gastroenterology Comment on above: Choledocholithiasis (Primary Dx) 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] Start: 09-10-2024 End: 09-10-2024 ambulatory DENICE EMELIA Neurology Comment on above: EMG Start: 09-10-2024 End: 09-10-2024 Patient encounter procedure Emg 2 Neur [facility] (Max Weight: 850) Neurology Start: 09-09-2024 End: 09-09-2024 Telephone encounter Jacqueline Noland MANAGER BUDGET General Surgery Start: 09-08-2024 End: 09-08-2024 Orders Only Susan Srinivasan MD Work Phone: General Surgery Comment on above: Dilated pancreatic duct (Primary Dx) UPDATED Pre-op Instr uctions Patient Update Overlock Waistline Joiner - O ther (Update on EUS orders ) Start: 09-07-2024 End: 09-07-2024 [facility] Facility:[facility] Start: 09-07-2024 End: 09-07-2024 Subsequent hospital visit by physician [facility] (I-Stat/1.5t) Work Phone: Radiology Comment on [...] done Anila De Paz MD Work Phone: [facility] Start: 08-25-2024 End: 08-25-2024 ambulatory QARAB DUNG Facility:[facility] Start: 08-25-2024 End: 08-25-2024 Admission to same day surgery center Taylor Forrest RN General Surgery Comment on above: Contact Information Start: 08-25-2024 End: 08-25-2024 E-mail encounter from caregiver Taylor Forrest RN General Surgery Start: 08-25-2024 End: 08-25-2024 Telephone encounter Taylor Forrest RN General Surgery Comment on above: Patient Question (Next Steps ) Start: 08-09-2024 End: 08-09-2024 ambulatory DENICE [facility] Facility:[facility] Start: 08-06-2024 End: 08-06-2024 ambulatory DENICE [facility] Facility:[facility] Start: 08-06-2024 End: 08-06-2024 Patient encounter procedure Denice Jacobs PA-C Work Phone: Neurology Comment on above: Neuropathy (Primary Dx); Paresthesia of both feet; Frequent falls Start: 08-03-2024 End: 08-03-2024 ambulatory [facility] Facility:[facility] Start: 08-03-2024 Encounter for other preprocedural examination SOURAV MARCIAL [facility] Start: 08-03-2024 End: 08-03-2024 Patient encounter [...] examination done Sourav Marcial MD Work Phone: [facility] Start: 08-02-2024 End: 08-02-2024 ambulatory HUMZA CAMEOJ Facility:[facility] Start: 08-02-2024 End: 08-02-2024 Patient encounter procedure Humza Camejo MD Work Phone: Ophthalmology Comment on above: Primary open angle glaucoma (POAG) of elisa th eyes, severe stage Start: 07-21-2024 End: 07-21-2024 [facility] KIRSTIN Facility:[facility] Start: 07-21-2024 End: 07-21-2024 Subsequent hospital visit by physician Eliazar Brown MD Work Phone: Gastroenterology Comment on above: Hiatal hernia [K44.9] Start: 07-19-2024 End: 07-19-[address] Christopher Turk DO -[facility] Work Phone: Start: 07-19-2024 End: 07-19-2024 ambulatory Christopher Turk Facility:[facility] Start: 07-19-2024 End: 07-19-2024 Telephone encounter Willa Torres APRN.CNP Work Phone: Pre Anesthesia Comment on above: Request Outside Medical Records Start: 07-16-2024 End: 07-16-2024 Preprocedural examination done [place] [id number] Work Phone: [facility] Start: 07-16-2024 End: 07-16-2024 PAT [place] [id number] Work Phone: Pre Anesthesia Comment on above: Pre-operative examination (Primary Dx); 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); MS (multiple sclerosis) ([facility]); History of complex partial epilepsy; Restless legs syndrome; Atherosclerosis of [place] coronary artery of [place] heart with angina pectoris (HCC); Essential hypertension; Mixed hyperlipidemia; Parkinsonism, unspecified Parkinsonism type ([facility]); Seizure disorder ([facility]); History of DVT (deep vein thrombosis); Obstructive sleep apnea syndrome; Bronchiectasis without complication ([facility]); Gastroesophageal reflux disease, unspecified whether esophagitis present; Esophageal stricture; Hypokalemia due to excessive renal loss of potassium; Overactive bladder; Hypothyroidism, unspecified type; History of malignant neoplasm of breast; Bilateral leg edema; Osteoporosis, unspecified osteoporosis type, unspecified pathological fracture presence; Multiple falls; Pulmonary embolism, other, unspecified chronicity, unspecified whether acute cor pulmonale present ([facility]) Start: 07-14-2024 End: 07-14-2024 Telephone encounter Jaqueline Del Cid RNchemical supervisor Comment on above: Appointment Confirmation Start: 07-12-2024 End: 07-12-[address] Christopher Turk DO -[facility] Work Phone: Start: 07-12-2024 End: 07-12-2024 ambulatory Chema Perry Facility:[facility] Start: 07-09-2024 End: 07-09-2024 ambulatory Christopher Turk Facility:[facility] Start: 07-09-2024 End: 07-09-[address] Christopher Turk DO -Physical Therapy Work Phone: Start: 07-09-2024 End: 07-09-2024 ambulatory ANILA AGUILARARRETE Facility:[facility] Start: 07-07-2024 End: 07-08-2024 Telephone encounter Fatimah Robbins RNchemical supervisor Comment on above: Patient Question (EGD Instructions neede d) Patient Question Start: 07-07-2024 End: 07-07-[address] Chema Perry MD -[facility] Work Phone: Start: 07-07-2024 End: 07-07-2024 ambulatory Chema Perry Facility:[facility] Start: 07-06-2024 ambulatory Chema Perry Facility:[facility] Start: 07-05-2024 End: 07-05-[address] 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, psychotic disturbance, mood disturbance, or anxiety (HCC) (Primary Dx); Physical deconditioning; Gait instability; Fine motor impairment; Dizziness; Idiopathic scoliosis and kyphoscoliosis; Multiple falls; Paresthesia of both feet Start: 06-24-2024 End: 06-24-2024 [facility] ANILA DE PAZ Facility:[facility] Start: 06-24-2024 End: 06-24-2024 Subsequent hospital visit by physician [facility] (I-Stat) Work Phone: Cat Scan Comment on above: Hiatal hernia [K44.9] Start: 06-23-2024 End: 06-23-2024 ambulatory ANILA DE PAZ Facility:[facility] Start: 06-18-2024 End: 06-18-2024 Preprocedural examination done Anila De Paz MD Work Phone: [facility] Start: 06-18-2024 End: 07-07-2024 Orders Only Anila De Paz MD Work Phone: General Surgery Comment on above: H/O acute myocardial infarction (Primary Dx); Cardiomyopathy, unspecified type (HCC); Pre-op evaluation; Encounter to establish care Hiatal hernia (Prima ry Dx) Pre-Procedure Leticia vázquez Start: 06-17-2024 End: 06-17-2024 Telephone encounter Taylor Forrest RN General Surgery Comment on above: Overlock Waistline Joiner - Other (Chart prep) Start: 06-16-2024 End: 06-16-2024 ambulatory [facility] Facility:[facility] Start: 06-10-2024 End: 06-10-2024 Refill Humza Camejo MD Work Phone: Ophthalmology Comment on above: Refill Request Start: 06-07-2024 End: 06-07-2024 Emergency department patient visit Susan Emery Facility:[facility] Start: 06-05-2024 End: 06-05-2024 ambulatory [facility] Facility:[facility] Start: 05-17-2024 End: 05-17-2024 ambulatory [facility] Facility:[facility] Start: 05-17-2024 End: 05-17-2024 Patient encounter procedure Susan Squires MD Work Phone: General Surgery Comment on above: Hiatal hernia (Primary Dx); Gastroesophageal reflux disease, unspecified whether esophagitis present Start: 05-04-2024 End: 05-04-2024 ambulatory [facility] Facility:[facility] Start: 05-03-2024 End: 05-03-2024 ambulatory [facility] Facility:[facility] Start: 05-03-2024 End: 05-03-2024 Patient encounter procedure Humza Camejo MD Work Phone: Ophthalmology Comment on above: Primary open angle glaucoma (POAG) of elisa th eyes, severe stage Start: 04-22-2024 End: 04-22-2024 ambulatory [facility] Facility:[facility] Start: 04-19-2024 End: 04-19-2024 ambulatory [facility] Facility:[facility] Start: 04-17-2024 End: 04-17-2024 Emergency department patient visit Vincent Morris Facility:[facility] Start: 04-16-2024 End: 04-16-2024 ambulatory [facility] Facility:[facility] Start: 04-09-2024 End: 04-09-2024 ambulatory Sandra Vincent NP Facility:[facility] Start: 04-05-2024 End: 04-05-2024 ambulatory [facility] Facility:[facility] Start: 04-01-2024 End: 04-01-2024 ambulatory [facility] Facility:[facility] Start: 03-25-2024 End: 03-25-2024 ambulatory CHEMA CABANCHNER Facility:[facility] Start: 03-25-2024 End: 03-25-2024 Office outpatient visit 40 minutes Laisha Lizarraga APRN.EMERGENCY MEDICAL TECH Work Phone: Neurology Comment on above: 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, psychotic disturbance, mood disturbance, or anxiety (HCC) (Primary Dx); Physical deconditioning; Gait instability; Fine motor impairment; Dizziness; Depression, unspecified depression type; Postural kyphosis of thoracic region Start: 03-24-2024 Refill Humza Camejo MD Work Phone: Ophthalmology Comment on above: Refill Request Start: 03-18-2024 End: 03-18-2024 ambulatory [facility] Facility:[facility] Start: 03-16-2024 End: 03-16-2024 ambulatory [facility] Facility:[facility] Start: 03-16-2024 End: 03-16-2024 ambulatory [facility] Facility:[facility] Start: 03-12-2024 Refill Laisha Lizarraga APRN.EMERGENCY MEDICAL TECH Work Phone: Neurology Comment on above: Refill Request Start: 03-01-2024 End: 03-01-2024 ambulatory Malachi Caal Facility:[facility] Start: 02-23-2024 End: 02-23-2024 ambulatory [facility] Facility:[facility] Start: 02-11-2024 End: 02-12-2024 ambulatory [facility] Facility:[facility] Start: 12-26-2023 Refill Laisha Lizarraga APRN.EMERGENCY MEDICAL TECH Work Phone: Neurology Comment on above: Refill Request Start: 12-26-2023 Refill Humza Camejo MD Work Phone: Ophthalmology Comment on above: Refill Request Start: 12-05-2023 Non-patient / Non-visit Dr. Chema Perry Work Phone: [facility] Work Phone: Start: 12-04-2023 Non-patient / Non-visit Dr. Chema ePrry Work Phone: [facility] Start: 12-04-2023 End: 12-04-[address] Chema Perry Work Phone: [facility] Work Phone: Start: 12-04-2023 End: 12-04-[address] [facility] Work Phone: Start: 11-12-2023 End: 11-12-[address] Chema Perry Work Phone: [facility] Work Phone: Start: 10-30-2023 Refill Humza Camejo [...] 10-14-[address] Chema Perry Work Phone: [facility] Work Phone: Start: 10-14-2023 End: 10-14-[address] Chema Perry Work Phone: [facility]-Laboratory Work Phone: Start: 10-08-2023 End: 10-08-[address] Chema Perry Work Phone: [facility]-Pulmonary Medicine [facility] Work Phone: Start: 09-24-2023 End: 09-24-[address] Chema Perry Work Phone: [facility] Work Phone: Start: 08-14-2023 End: 08-14-[address] Chema Perry Work Phone: [facility] Work Phone: Start: 08-14-2023 End: 08-14-[address] Chema Perry Work Phone: [facility]-Physical Therapy Work Phone: Start: 08-14-[address] Chema Perry Work Phone: [facility]-Physical Therapy Work Phone: Start: 08-13-2023 End: 08-13-[address] Chema Perry Work Phone: [facility] Work Phone: Start: 07-15-2023 End: 07-15-[address] Chema Perry Work Phone: [facility] Work Phone: Start: 07-15-2023 End: 07-15-[address] 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 Chema Perry Work Phone: [facility] Work Phone: Start: 06-04-2023 End: 06-04-[address] Chema Perry Work Phone: [facility] Work Phone: Start: 05-29-2023 Non-patient / Non-visit Dr. Chema Perry Work Phone: [place] [facility] Start: 05-29-2023 End: 05-29-[address] Chema Perry Work Phone: [facility] Work Phone: Start: 05-29-2023 End: 05-29-[address] Chema Perry Work Phone: [facility]-Cardiovascula r Services Work Phone: Start: 05-23-2023 Refill Laisha Lizarraga APRN.EMERGENCY MEDICAL TECH Work Phone: Neurology Start: 05-22-2023 End: 05-22-[address] Chema Perry Work Phone: [facility] Work Phone: Start: 05-12-2023 End: 05-12-[address] Chema Perry Work Phone: [facility] Work Phone: Start: 05-06-2023 End: 05-06-[address] Chema Perry Work Phone: [facility] Work Phone: Start: 05-06-2023 End: 05-06-[address] Chema Perry Work Phone: [facility]-Speech Therapy Work Phone: Start: 04-22-2023 End: 04-22-[address] Chema Perry Work Phone: [facility]-Laboratory Work Phone: Start: 04-08-2023 ambulatory Laisha Zia STEPHENS Work Phone: Neurology Comment on above: Tolerating Donepezil Start: 04-07-2023 End: 04-07-[address] Chema Perry Work Phone: [facility]-Pulmonary Medicine [facility] Work Phone: Start: 04-02-2023 End: 04-02-2023 Emergency department patient visit Dr. Chema Perry Work Phone: [facility]-Emergency Department Work Phone: Start: 04-01-[address] Chema Perry Work Phone: [facility]-Speech Therapy Work Phone: Start: 03-24-2023 End: 03-24-[address] Chema Perry Work Phone: [facility] Work Phone: Start: 02-12-2023 End: 02-12-[address] Chema Perry Work Phone: [facility] Work Phone: Start: 02-12-[address] Chema Perry Work Phone: [facility]-Occupational Therapy Work Phone: Start: 02-06-2023 End: 02-06-[address] Chema Perry Work Phone: [facility] Work Phone: Start: 02-06-2023 End: 02-06-[address] Chema Perry Work Phone: [facility]-Sleep Lab Start: 02-04-[address] Chema Perry Work Phone: [facility]-Speech Therapy Start: 01-29-2023 End: 01-29-[address] Chema Perry Work Phone: [facility] [place] Start: 01-29-2023 End: 01-29-[address] Chema Perry Work Phone: [facility] Work Phone: Start: 01-29-2023 End: 01-29-[address] Chema Perry Work Phone: [facility]-Occupational Therapy Start: 01-20-2023 End: 01-20-[address] Chema Perry Work Phone: [facility]-Now Clinic Start: 01-17-2023 End: 01-17-[address] Chema Perry Work Phone: [facility] Radiology Start: 01-17-[address] Chema Perry Work Phone: [facility]-Occupational Therapy Start: 01-15-2023 End: 01-15-[address] Chema Perry Work Phone: [facility] Work Phone: Start: 01-15-2023 End: 01-15-[address] Chema Perry Work Phone: [facility] Start: 01-10-2023 End: 01-10-[address] Chema Perry Work Phone: [facility] Work Phone: Start: 01-10-2023 End: 01-10-[address] Chema Perry Work Phone: [facility]-Outpatient Breast Imaging Start: 01-08-2023 End: 01-08-[address] Chema Perry Work Phone: [facility] Start: 01-02-2023 End: 01-02-[address] Chema Perry Work Phone: [facility] Start: 01-01-2023 End: 01-01-[address] hCema Perry Work Phone: [facility]-Pulmonary Medicine [facility] Start: 12-25-2022 Non-patient / Non-visit Dr. Chema Perry Work Phone: [facility] Start: 12-25-2022 End: 12-25-[address] Chema Perry Work Phone: [facility]-Cardiovascula r Services Start: 12-25-2022 End: 12-25-[address] Cehma Perry Work Phone: [facility]-Now Clinic Start: 12-11-[address] Chema Perry Work Phone: [facility]-Physical Therapy Start: 12-04-2022 End: 12-04-2022 Subsequent hospital visit by physician [employer] [employer] Bl (Lg Bore/3t) Radiology Comment on above: 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) [F03.90] Start: 12-03-2022 End: 12-03-[address] Chema Perry Work Phone: [facility] Work Phone: Start: 12-03-2022 End: 12-03-[address] Chema Perry Work Phone: [facility]-Laboratory Start: 11-23-2022 End: 11-23-[address] Chema Perry Work Phone: [facility] Start: 11-13-2022 End: 11-13-2022 Patient encounter procedure Laisha Zia STEPHENS Work Phone: Neurology Comment on above: 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) (Primary Dx); History of complex partial epilepsy; Gait instability; Multiple falls; Physical deconditioning; Depression, unspecified depression type; Anxiety; Dizziness; Imbalance Start: 10-23-2022 End: 10-23-[address] Chema Perry Work Phone: [facility] Start: 10-21-2022 End: 10-21-[address] Chema Perry Work Phone: [facility] Start: 10-16-2022 End: 10-16-2022 Emergency department patient visit Dr. Chema Perry Work Phone: [facility]-Emergency Department Start: 10-14-[address] [facility] Start: 09-21-2022 End: 09-21-[address] Chema Perry Work Phone: [facility] Work Phone: Start: 09-21-2022 End: 09-21-[address] Chema Perry Work Phone: [facility] Start: 09-16-[address] Che[facility] Start: 09-06-2022 End: 09-06-[address] Chema Perry Work Phone: [facility] Work Phone: Start: 09-06-2022 End: 09-06-[address] Chema Perry Work Phone: [facility] Start: 07-30-2022 End: 07-30-[address] Chema Perry Work Phone: [facility] Work Phone: Start: 07-30-2022 End: 07-30-[address] Chema Perry Work Phone: [facility]-Speech Therapy Start: 07-24-2022 End: 07-24-[address] Chema Perry Work Phone: [facility] Start: 07-22-2022 End: 07-22-[address] Arun Ramos Work Phone: [facility] Start: 07-22-[address] Arun [facility] Start: 07-18-2022 End: 07-18-[address] Arun Ramos Work Phone: [facility] Radiology Start: 07-13-2022 End: 07-13-2022 Emergency department patient visit Dr. Arun Ramos Work Phone: [facility]-Emergency Department Start: 07-12-2022 End: 07-12-[address] Arun Ramos Work Phone: [facility] Work Phone: Start: 07-12-2022 End: 07-12-[address] Arun Ramos Work Phone: [facility] Start: 07-08-2022 Non-patient / Non-visit Dr. Arun Ramos Work Phone: [facility] Internal Medicine Start: 07-07-2022 End: 07-07-[address] Arun Ramos Work Phone: [facility]-Now Clinic Start: 07-05-[address] Arun Ramos Work Phone: [facility]-Physical Therapy Start: 07-04-2022 End: 07-04-[address] Arun Ramos Work Phone: [facility] [place] Start: 06-25-2022 End: 06-25-[address] Arun Ramos [facility] Start: 06-07-2022 End: 06-07-[address] Arun Ramos Work Phone: [facility] Start: 05-13-2022 End: 05-13-[address] Arun Ramos Work Phone: [facility] [place] Start: 04-25-2022 End: 04-25-[address] Arun Ramos Work Phone: [facility] [place] Start: 04-11-2022 End: 04-11-2022 Patient encounter procedure Laisha Lizarraga APRN.CNP Work Phone: Neurology Comment on above: Dementia without behavioral disturbance, unspecified dementia type (HCC) (Primary Dx); History of complex partial epilepsy; Gait instability; Multiple falls; Physical deconditioning; Cognitive communication deficit Start: 03-27-2022 End: 03-27-[address] Arun Ramos [facility] Start: 03-21-2022 End: 03-21-[address] Arun Ramos Work Phone: [facility] [place] Start: 03-20-2022 Non-patient / Non-visit Dr. Arun Ramos Work Phone: [facility] Internal Medicine Start: 03-15-2022 End: 03-15-2022 Emergency department patient visit Dr. Arun Ramos Work Phone: [facility]-Emergency Department Start: 03-15-[address] Arun [facility] Start: 03-08-[address] Arun [facility] Start: 03-07-2022 End: 03-07-[address] Arun [facility] Start: 02-28-[address] Arun Ramos [facility] Start: 02-25-2022 End: 02-25-[address] Arun [facility] Start: 02-15-2022 End: 02-15-2022 Emergency department patient visit Dr. Arun Ramos Work Phone: [facility]-Emergency Department Start: 02-14-2022 End: 02-14-[address] Arun Ramos [facility] Start: 02-13-[address] Arun [facility] Start: 02-07-2022 End: 02-07-[address] Arun Ramos Work Phone: [facility]-Pulmonary Services/Neurology Start: 02-07-2022 Non-patient / Non-visit Dr. Arun Ramos Work Phone: [facility] Start: 02-06-[address] Arun Ramos Work Phone: [facility]-Physical Therapy Start: 01-23-2022 End: 01-23-2022 Patient encounter procedure Mitchel Muse MD Work Phone: Neurology Comment on above: Dementia without behavioral disturbance, unspecified dementia type (HCC) (Primary Dx); History of complex partial epilepsy; Gait instability; Multiple falls; Depression, unspecified depression type; Anxiety; Physical deconditioning Start: 01-10-2022 End: 01-10-[address] Arun Ramos Work Phone: [facility] Medicine [facility] Start: 11-26-2021 End: 11-26-[address] Arun Ramos Work Phone: [facility] Start: 11-23-2021 End: 11-23-[address] Arun Ramos Work Phone: [facility] Start: 11-23-2021 End: 11-23-[address] Arun Ramos Work Phone: [facility]-Laboratory, y Office [address] [place] [address] Start: 11-13-2021 End: 11-13-2021 Patient encounter procedure Laisha Lizarraga APRN.CNP Work Phone: Neurology Comment on above: Dementia without behavioral disturbance, unspecified dementia type (HCC) (Primary Dx); History of complex partial epilepsy; Gait instability; Multiple falls; Depression, unspecified depression type; Anxiety; Physical deconditioning Start: 11-07-2021 End: 11-07-[address] Arun Ramos Work Phone: [facility] Start: 10-08-2021 Non-patient / Non-visit Dr. Arun Ramos Work Phone: [facility] Inpatient Physicians Start: 10-07-2021 Non-patient / Non-visit Dr. Arun Ramos Work Phone: [facility] Start: 10-06-2021 Non-patient / Non-visit Dr. Arun Ramos Work Phone: [facility] Start: 10-05-2021 Non-patient / Non-visit Dr. Arun Ramos Work Phone: [facility] Start: 10-05-2021 End: 10-08-2021 Evaluation and management of inpatient Dr. Arun Ramos [facility] Start: 09-04-2021 End: 10-04-2021 Evaluation and management of inpatient Dr. Arun Ramos Work Phone: [facility]-Transitional Care Unit Start: 09-04-2021 Non-patient / Non-visit Dr. Arun Ramos Work Phone: [facility] Phys[facility] Start: 09-03-2021 Non-patient / Non-visit Dr. Arun Ramos Work Phone: [facility] Start: 09-02-2021 Non-patient / Non-visit Dr. Arun Ramos Work Phone: [facility] Phys[facility] Start: 09-02-2021 End: 09-04-2021 Evaluation and management of inpatient Dr. Arun Ramos [facility] Start: 09-01-2021 End: 09-01-2021 Emergency department patient visit Dr. Arun Ramos Work Phone: [facility]-Emergency Department Start: 08-13-[address] Arun Ramos Work Phone: [facility] Start: 08-09-2021 End: 08-09-[address] Arun Ramos Work Phone: [facility]-Pulmonary Medicine [facility] Start: 02-06-[address] Arun Ramos Work Phone: [facility] Procedures Date Procedure Procedure Detail Performing Clinician Start: 02-03-2025 CT of upper limb without contrast Dr. Sulema Perry MD Work Phone: Start: 02-03-2025 Plain X-ray of shoulder Dr. Chema Perry MD Work Phone: Start: 11-15-2024 Antibody screen ANILA DE PAZ Comment on above: Order Comment: Specimen Type: BLOOD SPEC IMENOrdering Facility: [facility] Address: [address] [place] [address] Performed By: #### T SCR ####CC MAIN BLOOD BANKCLIA [id number] [address] [place] Start: 11-09-2024 X-ray [...] Comment: Specimen Type: BLOOD SPEC IMENOrdering Facility: [facility] Address: [address] [place] [address] Performed By: #### T SCR30 ####CC MAIN BLOOD BANKCLIA [id number] [place] [address] [place] Start: 09-13-2024 Esophagoscp [...] rendering w/interp&postproc diff work station Laisha Lizarraga APRN.EMERGENCY MEDICAL TECH Work Phone: Start: 12-04-2022 Mri brain brain [...] DTaP,Tdap,Td Vaccine (4 - Td or Tdap) [facility] Start: 01-05-2029 Urine microalbumin profile DTaP,Tdap,Td Vaccine (3 - Td or Tdap) [facility] Start: 11-17-2027 Diabetes Screening Diabetes Screening [facility] Start: 09-23-2027 Diabetes Screening Diabetes Screening [facility] Start: 09-14-2027 Diabetes Screening Diabetes Screening [facility] Start: 08-09-2027 Diabetes Screening Diabetes Screening [facility] Start: 12-20-2025 End: 12-20-2025 Patient encounter procedure 12/20/2025 3:30 PM EDT Office Visit Cardiology [address] [place] [address] Joan Guadalupe APRN.EMERGENCY MEDICAL TECH [address] [place] [address] 1yr follow up Cardiology Comment on above: 1yr follow up Start: 11-16-2025 End: 04-25-2026 OCT OPTIC NERVE CIRRUS OU (BOTH EYES) OCT OPTIC NERVE CIRRUS OU (BOTH EYES) [facility] Imaging Routine Primary open angle glaucoma (POAG) of both eyes, severe stage Expected: 11/16/2025, Expires: 04/25/[address] [facility] Work Phone: Comment on above: Expected: 11/16/2025, Expires: Start: 09-14-2025 Hepatitis B surface antibody level LDL Cholesterol [facility] Start: 08-17-2025 End: 01-24-2026 VISUAL FIELD 24-2 OU (BOTH EYES) VISUAL FIELD 24-2 OU (BOTH EYES) [facility] Imaging Routine Primary open angle glaucoma (POAG) of both eyes, severe stage Expected: 08/17/2025, Expires: 01/24/[address] [facility] Work Phone: Comment on above: Expected: 08/17/2025, Expires: Start: 05-10-2025 End: 05-10-2025 Patient encounter procedure 05/10/2025 11:00 AM EDT Office Visit Neurology [address] [place], [place] [address] Denice Jacobs PA-C [address] [place] [address] 6 month follow up Neurology Comment on above: 6 month follow up Start: 03-24-2025 End: 03-24-2025 Patient encounter procedure 03/24/2025 2:30 PM EDT Office Visit Neurology [address] [address] Laisha Lizarraga, [place].EMERGENCY MEDICAL TECH [address] [place] [address] follow up- no moca Neurology Comment on above: follow up- no moca Start: 02-17-2025 End: 02-17-2025 Patient encounter procedure 02/17/2025 1:00 PM EDT Office Visit Neurology [address] [place] [address] Dimitry Maguire MD [address] [place], [place] [id number] 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] Neurology Comment on above: Ulnar neuropathy of right upper extremit y [G56.21] Start: 02-03-2025 [facility] Start: 02-01-2025 End: 02-01-2025 Patient encounter procedure 02/01/2025 1:30 PM EDT Office Visit Cardiology [address] [place] [address] [place] [address] [place] [address] 6mo follow up Cardiology Comment on above: 6mo follow up Start: 01-27-2025 End: 01-27-2025 Patient encounter procedure 01/27/2025 2:30 PM EDT Office Visit Vasculary Surgery [address] [place], [place] [id number] Carotid bruit, unspecified laterality [R09.89] Vasculary Surgery Comment on above: Carotid bruit, unspecified laterality [R 09.89] Start: 01-05-2025 End: 01-05-2025 Patient encounter procedure 01/05/2025 3:30 PM EDT Office Visit [facility] Ophthalmology [id number] [place] [address] Estelle Hodges MD [address] [address] Return in about 2 months (around 01/01/2025) for OCT OU. Ophthalmology Comment on above: Return in about 2 months (around 01/02/20 25) for OCT OU. 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, psychotic disturbance, mood disturbance, or anxiety Start: 12-20-2024 End: 12-20-2024 Patient encounter procedure 12/20/2024 2:00 PM EDT Office Visit Cardiology [address] [place] [address] [place] [address] [place] [address] discuss medication/edema Cardiology Comment on above: discuss medication/edema Start: 12-09-2024 End: 12-09-2024 Patient encounter procedure 12/09/2024 1:40 PM EDT Office Visit [facility] [address] [place] [address] [address] Dean PALatrice [address] [place] [address] Degeneration of intervertebral disc of lumbar region, unspecified whether pain present [M51.369]; Left leg paresthesias [R20.2]; Right leg paresthesias [R20.2] [facility] Comment on above: Degeneration of intervertebral disc of l umbar region, unspecified whether pain present [M51.369]; Left leg paresthesias [R20.2]; Right leg paresthesias [R20.2] Start: 12-03-2024 End: 12-03-2024 Patient encounter procedure 12/03/2024 11:20 AM EDT Office Visit General Surgery [address] [place] [id number] Anila De Paz MD [address] [address] Follow-up/ LPEHRLuis franchesca 2.3.25 General Surgery Comment on above: Follow-up/ LPEHR, Lap franchesca 2.3.25 Start: 11-26-2024 End: 11-26-2024 Patient encounter procedure 11/26/2024 4:15 PM EDT OT/PT/Speech Visit [facility] Outpatient Occupational Therapy [address] [place] [address], OTR/L [address] [place] [address] 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, R29.898] -- Recheck [facility] Occupational Therapy Comment on above: 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, R29.898] -- Recheck Start: 11-19-2024 End: 11-19-2024 Patient encounter procedure 11/19/2024 4:15 PM EDT OT/PT/Speech Visit [facility] Outpatient Occupational Therapy [address] [place] [address], OTR/L [address] [place] [address] 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, R29.898] [facility] Outpatient Occupational Therapy Comment on above: 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, R29.898] Start: 11-15-2024 End: 02-14-2025 Amylase [Enzymatic activity/volume] in Serum or Plasma AMYLASE Lab Routine Generalized abdominal pain Diarrhea, unspecified type Expected: 11/15/2024, Expires: 02/14/2025 [facility] Comment on above: Expected: 11/15/2024, Expires: Start: 11-15-2024 End: 02-15-2025 CBC W Auto Differential panel - Blood COMPLETE BLOOD COUNT AND DIFFERENTIAL Lab Routine Generalized abdominal pain Diarrhea, unspecified type Expected: 11/15/2024, Expires: 02/15/2025 [facility] Comment on above: Expected: 11/15/2024, Expires: Start: 11-15-2024 End: 02-15-2025 Comprehensive metabolic 2000 panel - Serum or Plasma COMPREHENSIVE METABOLIC PANEL Lab Routine Generalized abdominal pain Diarrhea, unspecified type Expected: 11/15/2024, Expires: 02/15/[address] [facility] Work Phone: Comment on above: Expected: 11/15/2024, Expires: Start: 11-15-2024 End: 02-14-2025 Lipase [Enzymatic activity/volume] in Serum or Plasma LIPASE Lab Routine Generalized abdominal pain Diarrhea, unspecified type Expected: 11/15/2024, Expires: 02/14/2025 [facility] Comment on above: Expected: 11/15/2024, Expires: Start: 11-12-2024 End: 11-12-2024 Patient encounter procedure 11/12/2024 3:30 PM EDT OT/PT/Speech Visit [facility] Outpatient Occupational Therapy [address] [place] [address], OTR/L [address] [place] [address] 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, R29.898] [facility] Outpatient Occupational Therapy Comment on above: 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, R29.898] Start: 11-11-2024 End: 11-11-2024 Patient encounter procedure Cat Scan Comment on above: Nausea [R11.0] Start: 11-10-2024 End: 04-19-2025 OCT OPTIC NERVE CIRRUS OU (BOTH EYES) OCT OPTIC NERVE CIRRUS OU (BOTH EYES) [facility] Imaging Routine Primary open angle glaucoma (POAG) of both eyes, severe stage Expected: 11/10/2024, Expires: 04/19/[address] [facility] Work Phone: Comment on above: Expected: 11/10/2024, Expires: Start: 11-05-2024 End: 11-05-2024 Patient encounter procedure 11/05/2024 2:00 PM EDT OT/PT/Speech Visit [facility] [address] [place] [address], OTR/L [address] [place] [address] 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, R29.898] [facility] Comment on above: 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, R29.898] Start: 11-03-2024 End: 11-03-2024 Patient encounter procedure Neurology Comment on above: Three month follow up had EMG, neuropathy, frequent falls Start: 11-02-2024 End: 02-01-2025 CREATININE BLD CREATININE BLD Lab Routine Nausea Generalized abdominal pain Expected: 11/02/2024, Expires: 02/01/2025 [facility] Comment on above: Expected: 11/02/2024, Expires: Start: 11-01-2024 End: 11-01-2024 Patient encounter procedure 11/01/2024 2:45 PM EDT Office Visit [facility] Ophthalmology [address] [place] [address] Humza Camejo MD [address] [place] [address] Return in about 3 months [...] AM EST Office Visit General Surgery [address] [place] [address] Anila De Paz MD [address] [place] [address] post op 2 wks/ lap paraesophageal hernia repair 09/20/2024 General Surgery Comment on above: post op 2 wks/ lap paraesophageal hernia repair 09/20/2024 Start: 10-07-2024 End: 10-07-2024 Patient encounter procedure 10/07/2024 1:45 PM EST Office Visit Neurology [address] [phone] Laisha Lizarraga APRN.EMERGENCY MEDICAL TECH [address] [place] [address] follow up- no moca Neurology Comment on above: follow up- no moca Start: 09-20-2024 End: 09-20-2024 Admission to same day surgery center 09/20/2024 12:35 PM EST - 09/20/2024 5:55 PM EST Surgery Admitting [address] [place] [address] Anila De Paz MD [address] [place], [place] [id number] LAPAROSCOPIC RPR PARAESOHAGEAL HERNIA W/ FUNDOPLASTY +/- [...] 12:35 PM EST Hospital Encounter Admitting [address] [place] [address] Anila De Paz MD [address] [place] [address] Hiatal hernia [K44.9], Epigastric pain [R10.13], Nausea and vomiting, unspecified vomiting type [R11.2], Pre-op exam [Z01.818] Admitting Comment on above: Hiatal hernia [K44.9], Epigastric pain [ R10.13], Nausea and vomiting, unspecified vomiting type [R11.2], Pre-op exam [Z01.818] Start: 09-18-2024 [facility] Start: 09-15-2024 End: 09-15-2024 Anesthesia consultation 09/15/2024 8:00 AM EST PAT Pre Anesthesia [address] [place] [address] 2, Pacc Main [address] [place] [address] preop/ lap hernia repair 09/20/2024 Pre Anesthesia Comment on above: preop/ lap hernia repair 09/20/2024 Start: 09-14-2024 End: 09-14-2024 ambulatory 09/14/2024 3:00 PM EST Results Only [facility] [address] [facility] [place] [place] [address] Hiatal hernia [K44.9]. Epigastric pain [R10.13]. Nausea and vomiting, unspecified vomiting type [R11.2]. Pre-op exam [Z01.818] [facility] Comment on above: Hiatal hernia [K44.9]. Epigastric pain [ R10.13]. Nausea and vomiting, unspecified vomiting type [R11.2]. Pre-op exam [Z01.818] Start: 09-14-2024 End: 09-14-2024 Anesthesia consultation 09/14/2024 2:00 PM EST PAT [facility] [address] [facility] [place] [address] 1, Pacc Rafita [address] [place] [address] preop/ lap hernia repair 09/20/2024 Pre Anesthesia Comment on above: preop/ lap hernia repair 09/20/2024 Start: 09-14-2024 End: 12-14-2024 LIPID PANEL, NONFASTING [facility] Work Phone: Comment on above: Expected: 09/14/2024, Expires: Start: 09-13-2024 End: 09-13-2024 Patient encounter procedure Gastroenterology Comment on above: Dilated pancreatic duct [K86.89], severe dilation of CBD Start: 09-10-2024 End: 09-10-2024 ambulatory Neurology Comment on above: R PN r R PN Start: 09-07-2024 End: 09-07-2024 Patient encounter procedure 09/07/2024 9:30 AM EST Appointment Radiology [address] [place] [address] Procedure: MRI PANC/MAGNOLIA WO/W IVCON Radiology Comment on above: Procedure: MRI PANC/MAGNOLIA WO/W IVCON Start: 09-03-2024 End: 09-03-2025 CBC W Auto Differential panel - Blood COMPLETE BLOOD COUNT AND DIFFERENTIAL Lab Routine Hiatal hernia Epigastric pain Nausea and vomiting, unspecified vomiting type Pre-op exam Expected: 09/03/2024, Expires: 09/03/2025 [facility] Comment on above: Expected: 09/03/2024, Expires: Start: 09-03-2024 End: 09-03-2025 Comprehensive metabolic 2000 panel - Serum or Plasma COMPREHENSIVE METABOLIC PANEL Lab Routine Hiatal hernia Epigastric pain Nausea and vomiting, unspecified vomiting type Pre-op exam Expected: 09/03/2024, Expires: 09/03/[address] [facility] Work Phone: Comment on above: Expected: 09/03/2024, Expires: Start: 09-03-2024 End: 09-03-2025 CONFIRM BLOOD TYPE CONFIRM BLOOD TYPE Blood Bank Routine Hiatal hernia Epigastric pain Nausea and vomiting, unspecified vomiting type Pre-op exam Expected: 09/03/2024, Expires: 09/03/2025 [facility] Comment on above: Expected: 09/03/2024, Expires: Start: 09-03-2024 End: 09-03-2024 Patient encounter procedure 09/03/2024 2:00 PM EST Office Visit General Surgery [address] [place] [address] Anila De Paz MD [address] [place], [place] [id number] Follow-up/ Pre-op PEHR/ completed EGD, CT ABD, [...] type Pre-op exam Expected: 09/03/2024, Expires: 12/03/2024 [facility] Comment on above: Expected: 09/03/2024, Expires: Start: 08-25-2024 End: 08-25-2024 Patient encounter procedure 08/25/2024 3:30 PM EST Office Visit Vascular Surgery [address] [address] Carotid bruit, unspecified laterality [R09.89] Vascular Surgery Comment on above: Carotid bruit, unspecified laterality [R 09.89] Start: 08-18-2024 Advance Directive Discussion Advance Directive Discussion [facility] Start: 08-09-2024 End: 08-09-2024 ambulatory 08/09/2024 4:00 PM EST Results Only [facility] [address] [place] [address] [facility] Start: 08-06-2024 End: 11-05-2024 CBC panel - Blood by Automated count COMPLETE BLOOD COUNT Lab Routine Neuropathy Expected: 08/06/2024, Expires: 11/05/2024 [facility] Comment on above: Expected: 08/06/2024, Expires: Start: 08-06-2024 End: 11-05-2024 Cobalamin (Vitamin B12) [Mass/volume] in Serum or Plasma VITAMIN B12 Lab Routine Neuropathy Expected: 08/06/2024, Expires: 11/05/2024 [facility] Comment on above: Expected: 08/06/2024, Expires: Start: 08-06-2024 End: 11-05-2024 Comprehensive metabolic 2000 panel - Serum or Plasma COMPREHENSIVE METABOLIC PANEL Lab Routine Neuropathy Expected: 08/06/2024, Expires: 11/05/2024 [facility] Comment on above: Expected: 08/06/2024, Expires: Start: 08-06-2024 End: 11-05-2024 PROTEIN ELECTROPHORESIS SERUM W/INTERP PROTEIN ELECTROPHORESIS SERUM W/INTERP Lab Routine Paresthesia of both feet Expected: 08/06/2024, Expires: 11/05/2024 [facility] Comment on above: Expected: 08/06/2024, Expires: Start: 08-06-2024 End: 11-05-2024 Pyridoxine [Mass/volume] in Serum or Plasma VITAMIN B6/PYRIDOXIN Lab Routine Neuropathy Expected: 08/06/2024, Expires: 11/05/2024 [facility] Comment on above: Expected: 08/06/2024, Expires: Start: 08-06-2024 End: 11-05-2024 VITAMIN B1 (THIAMINE), WHOLE BLOOD VITAMIN B1 (THIAMINE), WHOLE BLOOD Lab Routine Neuropathy Expected: 08/06/2024, Expires: 11/05/2024 [facility] Comment on above: Expected: 08/06/2024, Expires: Start: 08-06-2024 End: 08-06-2024 Patient encounter procedure 08/06/2024 10:00 AM EST Office Visit Neurology [address] [place] [address] [place] [phone] Denice Jacobs PA-C [address] [place], [place] [phone] Paresthesia of both feet [R20.2] Neurology Comment on above: Paresthesia of both feet [R20.2] Start: 08-03-2024 End: 08-03-2024 Patient encounter procedure 08/03/2024 3:30 PM EST Office Visit Cardiology [address] [place] [address] [place] [address] [place] [address] H/O acute myocardial infarction [I25.2]; Cardiomyopathy, unspecified type (HCC) [I42.9]; Pre-op evaluation [Z01.818] Cardiology Comment on above: H/O acute myocardial infarction [I25.2]; Cardiomyopathy, unspecified type (HCC) [I42.9]; Pre-op evaluation [Z01.818] Start: 08-02-2024 End: 08-02-2024 Patient encounter procedure 08/02/2024 2:15 PM EST Office Visit [facility] Ophthalmology [address] [place] [address] Humza Camejo MD [address] [place] [address] Return in about 3 months (around 08/02/2024). Ophthalmology Comment on above: Return in about 3 months (around 024). Start: 07-21-2024 End: 07-21-2024 Patient encounter procedure Gastroenterology Comment on above: EGD MAC Start: 07-16-2024 End: 07-16-2024 Anesthesia consultation 07/16/2024 3:00 PM EST PAT Pre Anesthesia [address] [place] [address] 1, Pacc Rafita [address] [place] [address] pre op 07/21 Pre Anesthesia Comment on above: pre op 07/21 Start: 07-09-2024 End: 07-09-2024 Patient encounter procedure 07/09/2024 11:20 AM EST Office Visit Cardiology [address] [place] [address] H/O acute myocardial infarction [I25.2]; Cardiomyopathy, unspecified type (HCC) [I42.9]; Pre-op evaluation [Z01.818] Cardiology Comment on above: H/O acute myocardial infarction [I25.2]; Cardiomyopathy, unspecified type (HCC) [I42.9]; Pre-op evaluation [Z01.818] Start: 07-01-2024 End: 07-01-2024 Patient encounter procedure 07/01/2024 1:45 PM EST Office Visit Neurology [address] [address] Laisha Lizarraga, ROSMERY.EMERGENCY MEDICAL TECH [address] [place] [address] F/U Neurology Comment on above: F/U Start: 06-18-2024 End: 09-17-2024 CREATININE BLD CREATININE BLD Lab Routine Hiatal hernia Expected: 06/18/2024, Expires: 09/17/2024 [facility] Comment on above: Expected: 06/18/2024, Expires: Start: 06-18-2024 End: 06-18-2024 Patient encounter procedure General Surgery Comment on above: New consult pt of Dr Squires Large Hiata l hernia on recent CT Gerd, frail, needs EGD Hiatal Hernia referr al from Dr. Squires/ HX: TIA, seizures, Dementia, asthma, [place], HTN, HLD, DVT, CA, GERD, SX: VHR, appy, Frail / CT ABD: R inguinal hernia (stable, LARGE hiatal hernia, dilated bile duct / NEEDS: EGD Start: 06-04-2024 End: 06-04-2024 Patient encounter procedure 06/04/2024 9:50 AM EDT Office Visit General Surgery [address] [phone] Laisha Sheppard MD [address] [place] [address] Hiatal hernia [K44.9] General Surgery Comment on above: Hiatal hernia [K44.9] Start: 05-17-2024 End: 05-17-2024 Patient encounter procedure 05/17/2024 3:00 PM EDT Office Visit General Surgery [address] [place] [address] Susan Squires MD [address] [place], [place] [phone] hernia General Surgery Comment on above: hernia Start: 05-03-2024 End: 05-03-2024 Patient encounter procedure 05/03/2024 2:00 PM EDT Office Visit [facility] Ophthalmology [address] [place] [address] Humza Camejo MD [address] [place] [address] Return in about 6 months (around 04/28/2024). Ophthalmology Comment on above: Return in about 6 months (around 04/28/20 24). Start: 04-18-2024 Covid-19 Vaccine () Covid-19 Vaccine () [facility] Start: 04-18-2024 Covid-19 Vaccine () Covid-19 Vaccine () [facility] Start: 04-18-2024 Influenza vaccination Influenza Vaccine (#1) [facility] Start: 03-25-2024 End: 03-25-2024 Patient encounter procedure 03/25/2024 1:45 PM EDT Office Visit Neurology [address] [address] Laisha Lizarraga, ROSMERY.EMERGENCY MEDICAL TECH [address] [place] [address] [facility] Follow Up Neurology Comment on above: [facility] Follow Up Start: 08-18-2023 Advance Directive Discussion Advance Directive Discussion [facility] Start: 05-08-2023 Diabetes Screening Diabetes Screening [facility] Start: 04-18-2023 Covid-19 Vaccine () Covid-19 Vaccine () [facility] Start: 04-18-2023 Covid-19 Vaccine () Covid-19 Vaccine () [facility] Start: 04-18-2023 Influenza vaccination [facility] Start: 01-17-2023 Radiography of thoracic spine Thoracic Spine 3 Views [facility] Start: 01-17-2023 XR Thoracic spine 3 Views [facility] Start: 01-17-2023 X-ray of lumbar spine, two or three views Lumbar Spine 2 or 3 Views [facility] Start: 01-17-2023 XR Lumbar spine 2 or 3 Views [facility] Start: 01-02-2023 Patient referral [facility] Work Phone: Start: 08-18-2022 ADVANCE DIRECTIVE DISCUSSION ADVANCE DIRECTIVE DISCUSSION [facility] Start: 04-18-2022 Influenza vaccination INFLUENZA (#1) [facility] Start: 02-25-2022 Methylmalonate measurement [facility] Work Phone: Start: 02-15-2022 [facility] Work Phone: Start: 09-22-2021 COVID-19 VACCINE (4 - Booster for Pfizer series) COVID-19 VACCINE (4 - Booster for Pfizer series) [facility] Start: 08-18-2021 ADVANCE DIRECTIVE DISCUSSION ADVANCE DIRECTIVE DISCUSSION [facility] Start: 07-17-2021 COVID-19 VACCINE (4 - Booster for Pfizer series) COVID-19 VACCINE (4 - Booster for Pfizer series) [facility] Start: 07-17-2021 COVID-19 VACCINE (4 - Pfizer series) COVID-19 VACCINE (4 - Pfizer series) [facility] Start: 12-01-2020 Screening for osteoporosis Bone Density Screening [facility] Start: 2017 RSV Vaccine (1 - 1-dose 75+ series) RSV Vaccine (1 - 1-dose 75+ series) [facility] Start: 2007 BONE DENSITY BONE DENSITY [facility] Start: 2007 Bone Density Screening Bone Density Screening [facility] Start: 2007 Pneumococcal Vaccine: 65+ (1 - PCV) Pneumococcal Vaccine: 65+ (1 - PCV) [facility] Start: 2007 PNEUMOCOCCAL: 65+ (1 - PCV) PNEUMOCOCCAL: 65+ (1 - PCV) [facility] Start: 2007 PNEUMOVAX AGE 65 AND OVER WITH 5YR LOOKBACK (#1) PNEUMOVAX AGE 65 AND OVER WITH 5YR LOOKBACK (#1) [facility] Start: 2002 RSV Vaccine (1 - 1-dose 60+ series) RSV Vaccine (1 - 1-dose 60+ series) [facility] Start: 1992 SHINGRIX VACCINE (1 of 2) SHINGRIX VACCINE (1 of 2) [facility] Start: 1987 DIABETES SCREEN DIABETES SCREEN [facility] Start: 1987 Diabetes Screening Diabetes Screening [facility] Start: 1987 Screening for malignant neoplasm of colon [facility] Start: 1961 Urine microalbumin profile [facility] Start: 1960 Hepatitis B surface antibody level LDL Cholesterol [facility] Start: 1960 Screening for malignant neoplasm of colon [facility] Bacteria identified in Urine by Culture Urine Culture [facility] Work Phone: End: 07-18-2025 CT Abdomen and Pelvis W contrast IV CT ABD/PEL W IVCON Radiology Routine Hiatal hernia 1 Occurrences starting 06/18/2024 until 07/18/2025 [facility] Comment on above: 1 Occurrences starting 06/18/2024 until 07/18/2025 End: 12-02-2025 CT Abdomen and Pelvis W contrast IV CT ABD/PEL W IVCON Radiology Routine Nausea 1 Occurrences starting 11/02/2024 until 12/02/[address] [facility] Work Phone: Comment on above: 1 Occurrences starting 11/02/2024 until 12/02/2025 CT Abdomen and Pelvi s W contrast IV CT ABD/PEL W IVCON Radiology Routine Nausea 11/11/2024 1:[address] [facility] Work Phone: End: 07-18-2025 CT Chest W contrast IV CT CHEST W IVCON Radiology Routine Hiatal hernia 1 Occurrences starting 06/18/2024 until 07/18/2025 [facility] Comment on above: 1 Occurrences starting 06/18/2024 until 07/18/2025 CT Chest W contrast IV CT CHEST W IVCON Radiology Routine Hiatal hernia 06/24/2024 3:[address] [facility] Work Phone: ECG COMPLETE ECG COMPLETE ECG 08/03/2024 3:[address] [facility] End: 06-18-2025 Echocardiography ECHO Cardiology Routine H/O acute myocardial infarction Cardiomyopathy, unspecified type (HCC) Pre-op evaluation 1 Occurrences starting 06/18/2024 until 06/18/[address] [facility] Work Phone: Comment on above: 1 Occurrences starting 06/18/2024 until 06/18/2025 End: 09-08-2025 EGD - THERAPEUTIC, EUS, OR TUBE INTERVENTIONS EGD - THERAPEUTIC, EUS, OR TUBE INTERVENTIONS Endoscopy Routine Dilated pancreatic duct 1 Occurrences starting 09/08/2024 until 09/08/[address] [facility] Work Phone: Comment on above: 1 Occurrences starting 09/08/2024 until 09/08/2025 End: 06-18-2025 EGD DIAGNOSTIC EGD DIAGNOSTIC Endoscopy Routine Hiatal hernia 1 Occurrences starting 06/18/2024 until 06/18/[address] [facility] Work Phone: Comment on above: 1 Occurrences starting 06/18/2024 until 06/18/2025 End: 08-06-2025 EMG(NEURO/NI) EMG(NEURO/NI) EMG Routine Neuropathy 1 Occurrences starting 08/06/2024 until 08/06/[address] [facility] Work Phone: Comment on above: 1 Occurrences starting 08/06/2024 until 08/06/2025 Lipid 1996 panel - S des or Plasma [facility] Work Phone: Lipid 1996 panel - S des or Plasma [facility] Measurement of respiratory function [facility] Methylmalonate measurement [facility] Work Phone: End: 10-03-2025 MR Biliary ducts and Pancreatic duct WO and W contrast IV MRI PANC/MAGNOLIA WO/W IVCON Radiology Routine Abnormal results of liver function studies 1 Occurrences starting 09/03/2024 until 10/03/[address] [facility] Work Phone: Comment on above: 1 Occurrences starting 09/03/2024 until 10/03/2025 End: 10-03-2025 MR Unspecified body region 3D post processing MRI 3D POST PROCESSING Radiology Routine Abnormal results of liver function studies 1 Occurrences starting 09/03/2024 until 10/03/2025 [facility] Comment on above: 1 Occurrences starting 09/03/2024 until 10/03/2025 End: 12-13-2023 MRI 3D POST PROCESSING MRI 3D POST PROCESSING Radiology Routine 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) 1 Occurrences starting 11/13/2022 until 12/13/[address] [facility] Work Phone: Comment on above: 1 Occurrences starting 11/13/2022 until 12/13/2023 End: 12-13-2023 MRI BRAIN W QUANT WO IVCON MRI BRAIN W QUANT WO IVCON Radiology Routine 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) 1 Occurrences starting 11/13/2022 until 12/13/[address] [facility] Work Phone: Comment on above: 1 Occurrences starting 11/13/2022 until 12/13/2023 NEUROMUSCULAR ULTRASOUND/NEUROLOGY NEUROMUSCULAR ULTRASOUND/NEUROLOGY Procedures Routine Ulnar neuropathy of right upper extremity Ordered: 11/03/[address] [facility] Work Phone: Comment on above: Ordered: 11/03/2024 Patient Education [facility] Work Phone: Patient referral [facility] Work Phone: Polysomnography [facility] REFER FOR ADMIT INTERVIEW REFER FOR ADMIT INTERVIEW Procedures Routine Hiatal hernia Epigastric pain Nausea and vomiting, unspecified vomiting type Pre-op exam Ordered: 09/03/2024 [facility] Comment on above: Ordered: 09/03/2024 US Breast limited [facility] US Carotid arteries [facility] End: 08-03-2025 US Carotid arteries - bilateral US CAROTID ARTERIES [facility] Vascular Lab Routine Carotid bruit, unspecified laterality 1 Occurrences starting 08/03/2024 until 08/03/[address] [facility] Work Phone: Comment on above: 1 Occurrences starting 08/03/2024 until 08/03/2025 End: 12-20-2025 US Carotid arteries - bilateral US CAROTID ARTERIES [facility] Vascular Lab Routine Carotid bruit, unspecified laterality 1 Occurrences starting 12/20/2024 until 12/20/[address] [facility] Work Phone: Comment on above: 1 Occurrences starting 12/20/2024 until 12/20/2025 [facility] Immunizations Immunization Date Immunization Notes Care Provider Tootie gaines 12-19-2024 TD(adult) unspecifie d formulation Young [facility]ENC[facility] Work Phone: [facility] Work Phone: 12-19-2024 tetanus and diphther ia toxoids, adsorbed, preservative free, for adult use (5 Lf of tetanus toxoid and 2 Lf of diphtheria toxoid) Yougn [facility] Work Phone: [facility] 04-27-2024 Seasonal trivalent influenza vaccine, adjuvanted, preservative free Denice Jacobs PA-C Work Phone: [facility] 05-22-2023 influenza, injectabl e, quadrivalent, preservative free Dr. Chema Perry Work Phone: [facility] 05-22-2023 influenza virus vacc ine, unspecified formulation Laisha Lizarraga APRN.EMERGENCY MEDICAL TECH Work Phone: [facility] 05-20-2022 influenza (aIIV4) vaccine, age 65+ yr, quadrivalent, PF (FLUAD QUAD) Denice Jacobs PA-C Work Phone: [facility] 05-20-2022 influenza virus vacc ine, unspecified formulation Laisha Lizarraga APRN.EMERGENCY MEDICAL TECH Work Phone: [facility] 05-18-[address] Arun Ramos Work Phone: [facility] 05-18-2021 influenza-bonnie H5 v irus vaccine, unspecified formulation Denice Jacobs PA-C Work Phone: [facility] 04-10-2021 influenza, injectabl e, quadrivalent, contains preservative Denice Jacobs PA-C Work Phone: [facility] 02-17-2021 pneumococcal polysaccharide vaccine, 23 valent Denice Jacobs PA-C Work Phone: [facility] 02-17-[address] Arun Ramos Work Phone: [facility] Work Phone: 02-17-2021 pneumococcal vaccine , unspecified formulation Dr. Arun Ramos Work Phone: [facility] 10-28-2020 COVID-19 vaccine, ag e 12+ yr (PFIZER-BIONTECH - PURPLE TOP) Laisha Lizarraga CAMP COUNSELOR.EMERGENCY MEDICAL TECH Work Phone: [facility] 10-07-2020 COVID-19 vaccine, ag e 12+ yr (PFIZER-BIONTECH - PURPLE TOP) Laisha Lizarraga APRN.EMERGENCY MEDICAL TECH Work Phone: [facility] Work Phone: 05-10-2020 influenza virus vacc ine, unspecified formulation Denice Queener PA-C Work Phone: [facility] 07-13-2019 zoster vaccine recombinant Denice Queener PA-C Work Phone: [facility] 05-13-2019 influenza virus vacc ine, unspecified formulation Denice Queener PA-C Work Phone: [facility] 05-13-2019 influenza, high dose seasonal, preservative-free Denice Queener PA-C Work Phone: [facility] 05-13-2019 zoster vaccine recombinant Denice Queener PA-C Work Phone: [facility] 01-05-2019 tetanus toxoid, redu long diphtheria toxoid, and acellular pertussis vaccine, adsorbed Denice Queener PA-C Work Phone: [facility] 06-24-2018 pneumococcal polysaccharide vaccine, 23 valent Denice Queener PA-C Work Phone: [facility] 05-21-2018 influenza virus vacc ine, unspecified formulation Denice Queener PA-C Work Phone: [facility] 05-21-2018 Seasonal trivalent influenza vaccine, adjuvanted, preservative free Denice Queener PA-C Work Phone: [facility] 05-18-2018 influenza virus vacc ine, unspecified formulation Denice Queener PA-C Work Phone: [facility] 05-31-2017 influenza virus vacc ine, unspecified formulation Denice Queener PA-C Work Phone: [facility] 05-31-2017 influenza, high dose seasonal, preservative-free Denice Queener PA-C Work Phone: [facility] 05-31-2017 pneumococcal conjuga te vaccine, 13 valent Denice Queener PA-C Work Phone: [facility] 05-01-2016 influenza virus vacc ine, unspecified formulation Denice Queener PA-C Work Phone: [facility] 05-02-2015 influenza virus vacc ine, unspecified formulation Denice Queener PA-C Work Phone: [facility] 10-31-2014 pneumococcal conjuga te vaccine, 13 valent Denice Queener PA-C Work Phone: [facility] 05-13-2014 influenza virus vacc ine, unspecified formulation Denice Queener PA-C Work Phone: [facility] 05-13-2014 influenza, seasonal, injectable, preservative free Denice Queener PA-C Work Phone: [facility] 05-27-2013 influenza virus vacc ine, unspecified formulation Denice Queener PA-C Work Phone: [facility] 05-16-2011 influenza virus vacc ine, unspecified formulation Denice Queener PA-C Work Phone: [facility] 05-16-2011 influenza, seasonal, injectable, preservative free Denice Queener PA-C Work Phone: [facility] 06-18-2010 influenza virus vacc ine, unspecified formulation Denice Queener PA-C Work Phone: [facility] 06-18-2010 influenza, seasonal, injectable, preservative free Denice Queener PA-C Work Phone: [facility] 03-22-2010 pneumococcal polysaccharide vaccine, 23 valent Denice Queener PA-C Work Phone: [facility] 03-22-2010 tetanus and diphther ia toxoids, adsorbed, preservative free, for adult use (5 Lf of tetanus toxoid and 2 Lf of diphtheria toxoid) Denice Jacobs PA-C Work Phone: [facility] 03-22-2010 tetanus toxoid, redu long diphtheria toxoid, and acellular pertussis vaccine, adsorbed Denice Jacobs PA-C Work Phone: [facility] 06-06-2009 influenza virus vacc ine, unspecified formulation Denice Jacobs PA-C Work Phone: [facility] 06-06-2009 influenza, seasonal, injectable, preservative free Denice Jacobs PA-C Work Phone: [facility] Payers Date Payer Category Payer Self-pay [id number] 2019 Unknown [id number] 2015 Unknown [id number] .[id number] 2014 Private Health Insurance [facility] CHOICE PLUS [place] [id number] 2014-Present [phone] [address] [address] [place] [address] PPO [id number] .[id number] 2014 Private Health Insurance [id number] .[id number] 2007 Medicare MEDICARE MEDICAR E A AND B [id number] 2007-Present [phone] [address] [address] [place] [address] Medicare [id number] .[id number] 2007 Medicare [id number]. 1.13.159 .2.7.3.911031.315 2007 Medicare [id number] Medicare [id number] Medicare MEDICARE PART A B [id number] Unknown [id number] 2.16.840.1.759552.3.579 .2.462 Unknown [id number] 2.16.840.1.931906.3.579 .2.462 Unknown [id number] 2.16.840.1.141787.3.579 .2.462 Unknown [id number] 2.16.840.1.363637.3.579 .2.462 Unknown [id number] 2.840.1.203019.3.579 .2.462 Unknown [id number] 2.16.840.1.238081.3.579 .2.462 Unknown [id number] 2.16.840.1.456091.3.579 .2.462 Unknown [id number] 2.16.840.1.901921.3.579 .2.462 Unknown [id number] 2.16.840.1.415967.3.579 .2.462 Unknown [id number] 2.16.840.1.683823.3.579 .2.462 Unknown [id number] 2.16.840.1.994717.3.579 .2.462 Unknown [id number] 2.16.840.1.625954.3.579 .2.462 Unknown [id number] 2.16.840.1.909721.3.579 .2.462 Unknown [id number] 2.16.840.1.456201.3.579 .2.462 Unknown [id number] 2.16.840.1.179638.3.579 .2.462 Unknown [id number] 2.16.840.1.125094.3.579 .2.462 Unknown [id number] 2.16.840.1.373679.3.579 .2.462 Unknown [id number] 2.16.840.1.275256.3.579 .2.462 Unknown [id number] 2.16840.1.000361.3.579 .2.462 Unknown [id number] 2.16.840.1.587889.3.579 .2.462 Unknown [id number] 2.840.1.712993.3.579 .2.462 Unknown [id number] 2.840.1.110603.3.579 .2.462 Unknown [id number] 2.840.1.586012.3.579 .2.462 Unknown [id number] 2.840.1.721191.3.579 .2.462 Unknown [id number] 2.840.1.146826.3.579 .2.462 Unknown [id number] 2.840.1.186942.3.579 .2.462 Unknown [id number] 2.840.1.063582.3.579 .2.462 Unknown [id number] 2.840.1.392133.3.579 .2.462 Unknown [id number] 2.840.1.767639.3.579 .2.462 Unknown [id number] 2.840.1.459189.3.579 .2.462 Unknown [id number] 2.16.840.1.616683.3.579 .2.462 Unknown [id number] 2.840.1.557444.3.579 .2.462 Unknown [id number] 2.16840.1.174086.3.579 .2.462 Unknown [id number] 2.16840.1.603713.3.579 .2.462 Social History Date Type Detail Facility Start: 10-25-2020 End: 02-03-2025 Tobacco smoking status NHIS Never smoked tobacco [facility] Start: 10-25-2020 End: 07-25-2022 Tobacco use and exposure Smokeless tobacco non-user [facility] Start: 11-13-2021 End: 09-13-2024 Alcohol intake Current drinker of alcohol (finding) [facility] Start: 10-25-2020 History SDOH Alcohol Comment Weekly 1-2 drinks [facility] Start: 1940 Sex Assigned At Female [facility] Start: 11-03-2021 End: 04-11-2022 Exposure to SARS-CoV-2 (event) Not sure [facility] Start: 11-07-2021 End: 11-12-2023 Tobacco smoking status NHIS Unknown if ever smoked [facility] Start: 10-07-2020 Spouse/ Signif icant Other [facility] Start: 03-14-2023 End: 11-16-2024 History of Social function [facility] Start: 03-14-2023 End: 11-16-2024 Tobacco use panel [facility] Adult Depression Screening Assessment 0 [facility] Start: 08-08-2020 Gender identity Identifies as female gender (finding) [facility] Start: 08-08-2020 Sexual orientation Heterosexual (fin ding) [facility] Start: 09-14-2024 End: 12-23-2024 Alcoholic beverage intake Ex-drinker (finding) [facility] Has the IceWEB, Templafy, or water Flasma threatened to shut off services in your home in past 12Mo No [facility] Work Phone: (I/We) worried l[facility] (my/our) food would run out before (I/we) got money to buy more. Never true [facility] Start: 10-29-2024 End: 11-15-2024 Sex Female (finding) [facility] Functional Status Date Assessment Result Facility 11-17-2024 Are you deaf, or do you have serious difficulty hearing No 11/17/2024 12:03 PM Merlene Ojeda RN No [facility] 11-17-2024 Are you blind, or do you have serious difficulty seeing, even when wearing glasses No 11/17/2024 12:03 PM EDMerlene Rose, MAN No [facility] 11-17-2024 Do you have serious difficulty walking or climbing stairs No 11/17/2024 12:03 PM EDT Merlene Bailey, MAN No [facility] 11-17-2024 Do you have difficul ty dressing or bathing No 11/17/2024 12:03 PM EDT Merlene Bailey, MAN No [facility] 11-17-2024 Because of a physica l, mental, or emotional condition, do you have difficulty doing errands alone such as visiting a physician's office or shopping No 11/17/2024 12:03 PM EDMerlene Rose, MAN No [facility] 10-08-2021 Functional status Chair [facility] Work Phone: 10-02-2021 Functional status Activity Abili ty Unable to Assess [facility] Work Phone: 09-28-2021 Functional status Patient Activity Chair [facility] Work Phone: 09-04-2021 Functional status Bedside Commode [facility] Work Phone: Mental Status Date Assessment Result Facility 11-17-2024 Because of a physica l, mental, or emotional condition, do you have serious difficulty concentrating, remembering, or making decisions No 11/17/2024 12:03 PM EDMerlene Rose, MAN No [facility] 02-15-2022 Cognitive function Awake;Alert;A ppropriate; Follows Commands [facility] Work Phone: 10-08-2021 Cognitive function Appropriate;Cooperativ e [facility] Work Phone: 10-04-2021 Cognitive function Voice/Name [facility] Work Phone: 09-04-2021 Cognitive function Fearful [facility] Work Phone: Clinical Notes 11-13-2021 to 02-03-2025 Telephone Encounter - Dung, Qarab Elieser, MD - 12/24/2024 2:58 PM EDTTelephone Encounter - Sourav Marcial MD - 12/24/2024 2:58 PM EDTPatient InstructionsPatient InstructionsPatient Instructions Note Date & Type Note Facility 02-03-2025 Discharge summary [facility] 02-03-2025 Radiology Diagnostic study note [facility] [address] [place], [place] [address] Extremity Upper without Contra MR#: [id number] Acct: [id number] Name: LAUREN ALCARAZ Rep #: [id number] : 1940 F 84 From: Rodrigue Pritchard MD PCP: Dr. Chema Perry MD Status: REG ER Study:Extremity Upper without Contra Date of Exam: 02/03/25 Exam# [id number] Ordering Dr: Radha Bustamante DO PROCEDURE: EXTREMITY [...] changes of the humeral head. Reading [facility] CC: Dr. Chema Perry MD; Isma Bustamante DO ~ Scallop Shucker: Signed [facility] 02-03-2025 Radiology Diagnostic study note [facility] [address] [place], [place] [address] Shoulder min 2 Views MR#: [id number] Acct: [id number] Name: LAUREN ALCARAZ Rep #: [id number] : 1940 F 84 From: Rodrigue Pritchard MD PCP: Dr. Chema Perry MD Status: [facility] ER Study:Shoulder min 2 Views Date of Exam: 02/03/25 Exam# [id number] Ordering Dr: Radha Bustamante DO PROCEDURE: SHOULDER [...] changes of the humeral head. [facility] CC: Dr. Chema Perry MD; Isma Bustamante DO ~ Scallop Shucker: Signed [facility] 01-05-2025 Note [facility] 12-24-2024 Telephone encounter Note Yes, I will switch you back to furosemide [address] of torsemide. [facility] 12-24-2024 Miscellaneous Notes Yes, I will [...] Marcial. Please advise. documented in this encounter [facility] 12-24-2024 Telephone encounter Note SHELIA; 12/20/2024- [...] Guadalupe Forward to Dr. Marcial. Please advise. [facility] 12-23-2024 Instructions Laisha Lizarraga APRN.ALBERT - 12/23/2024 3:18 PM EDT Continue to participate in physical activity and be cogntiively and socially engaged and active 2. Please schedule Cognitive/Speech Therapy sessions- by calling [phone]. I know there are therapists in the [place] area 3. Can consider getting back into OT later if you need a refresher 4. Can discuss with Dr. Logan re: potentially increasing the gabapentin dose for the neuropathy / RLS For now, I will increase this to 200mg daily. I would like Dr. Logan to later consider taking over refills of this medication. 5. Consider asking the Active Directory Engineer about your R eyelid ptosis, I am not sure that there is a clear neurological cause for this. Follow up in ~3 months documented in this encounter [facility] 12-23-2024 History of Present illness Narrative Images from the original note were not included. Lauren Alcaraz 1940 [address] [facility] [address] December 23, 2024 [place] [facility] FOLLOW-UP NOTE Accompanied by: [...] vs other . Also ask your home rehab trainer about a device for this as [...] twice daily. She plans to see her cutter inspector after returning from vacation and inquires about [...] 1,000 mcg intramuscularly once every month. Vitamin X-10-ynlozpeqxmrtcf ammonium lactate (LAC-HYDRIN) 12 % lotion MULTIVITAMIN [...] from 2007 DATE: June 15, 2008 NO: [id number] Indication: Question of seizure Medications: None given [...] Please schedule Cognitive/Speech Therapy sessions- by calling [phone]. I know there are therapists in the [place] area 3. Can consider getting back into OT later if you need a refresher 4. Can discuss with Dr. Logan re: potentially increasing the gabapentin dose for the neuropathy / RLS For now, I will increase this to 200mg daily. I would like Dr. Logan to later consider taking over refills of this medication. 5. Consider asking the Active Directory Engineer about your R eyelid ptosis, I am not sure that there is a clear neurological cause for this. Follow up in ~3 months I spent a total of 40 minutes on the date of service which included pewf-zc-wxvb patient care and counseling and educating the patient/spouse. Laisha Lizarraga, MSN, SALES AND LEASING CONSULTANT-C, CNRN CC: 1. No primary care provider on file., (fax) None documented in this encounter [facility] 12-23-2024 Note [facility] 12-20-2024 Instructions Sourav Marcial MD - [...] These stockings can be purchased at most drugsBantu LLCes. Ask your doctor about limiting your salt [...] only one limb. documented in this encounter [facility] 12-20-2024 History of Present illness Narrative Images from the original note were not included. [facility] [place] Justus Saravia Department of Cardiovascular Medicine SECTION OF [facility] CARDIOLOGY [facility] December 21, 2023 OUTPATIENT VISIT TYPE [...] Arthritis Asthma (HCC) Atherosclerotic heart disease of [place] coronary artery without angina pectoris Autoimmune disorder [...] 1,000 mcg intramuscularly once every month. Vitamin V-89-miznrmaycsahfc ammonium lactate (LAC-HYDRIN) 12 % lotion MULTIVITAMIN [...] 74 - 99 mg/dL Final Comment: The [place] Diabetes Association (ADA) provides guidance for cutoff [...] Standards of Medical Care in Diabetes 2016, [place] [employer] Association. Diabetes Care. 2016.39(Suppl 1). BUN [...] with VKA drugs, such as warfarin, the [place] College [employer] Chest [employer]icians 2012 Guideline recommends [...] Chest 2012, 141:7S-47S Yakov RA, et al. [facility] 2017, 70: 252-289 Cardiovascular Testing: I reviewed personally. I have personally reviewed the Electrocardiogram, Chest X-ray, Laboratory Testing Carotid Doppler done on November 26, 2023 shows less than 50% stenosis with mild plaque disease [facility] nuclear SPECT scan done on May 2023 also shows normal LV function with no evidence of ischemia ejection fraction of 89%. However, it was done with 69% of maximal Peritrate heart rate obtained. Echocardiogram done in [facility] on 09 July 2024 shows normal LV function with ejection fraction of 59%, 2+ tricuspid regurgitation with right ventricular systolic pressure of 59 mmHg. 08/03/2024 EKG showed normal sinus rhythm with old inferior wall [place] and poor R wave progression with no [...] low fat diet. Sourav Marcial MD, FACC. Lehr Cutter, Dept of Cardiology and Medicine, [facility]. Special Officer of Ambulatory Cardiology, [facility]. Special Officer of Cardiac Catheterization laboratory, [facility]. Clinical Asst. mri special procedures technologist, [facility] and [facility] Staff Terrazzo Worker, [facility] [place], [facility]. documented in this encounter [facility] 12-20-2024 Note [facility] 12-19-2024 Note [facility] 12-19-2024 History of Present illness Narrative RAFITA [...] Arthritis Asthma (HCC) Atherosclerotic heart disease of [place] coronary artery without angina pectoris Autoimmune disorder [...] 1,000 mcg intramuscularly once every month. Vitamin M-35-nrybvsujbcbfhf MULTIVITAMIN ORAL Take 1 tablet by mouth [...] was discharged. Procedures documented in this encounter [facility] 12-16-2024 Telephone encounter Note Called and spoke with patient to inform her that Rx was sent and that going forward she would need to get Lasix from PCP if they would be managing that medication. While on the phone she stated she that she would like Dr. Marcila to continue to manage this medication , that her legs have been more swollen and that she feels that it would be more appropriate that Cardiology manage this. She agreed to move appointment up to 12/20/[address] Marcial to discuss further. Patient denied any other pressing associated symptoms. Sending to Dr. Marcial for FYI only. [facility] 12-16-2024 Miscellaneous Notes Called and spoke [...] Next OV 02/01/25 documented in this encounter [facility] 12-16-2024 Telephone encounter Note Uncertain why PCP would change the dose. In the future she could obtain refills from the PCP Joan Guadalupe APRN.EMERGENCY MEDICAL TECH [facility] 12-16-2024 Telephone encounter Note Last Rx sent 08/03/24 with refills to last one year. Spoke with pharmacy staff. They said PCP (non-[facility]) prescribed one month of this medication with no refills which cancelled our Dr Marcial's prescription. Please advise if patient should have PCP continue prescribing. Last OV 08/03/24 Next OV 02/01/25 [facility] 12-09-2024 Note [facility] 12-03-2024 Note [facility] 12-03-2024 History of Present illness Narrative Name: [...] 2024 11:31 AM documented in this encounter [facility] 11-26-2024 Note HNO ID: [id number] Author: RADHA STREET, OTR/L Service: ? Author [...] and treatment included: Therapeutic exercise, Neuromuscular re-education, Self-alf management, and Patient/Family/Caregiver Education. Goals for Episode of Care: updated 11/26/2024 Patient will complete HEP at Modified [place] level. (MET) Patient will increase bilateral education adviser and pinches by 5# to improve function [...] WITH LEVEL OF FUNCTION: Hand Strength R Bessemer Converter Operator Position 2 (lbs): 41 lbs L Bessemer Converter Operator Position 2 (lbs): 25 lbs Current Activities [...] was provided in selection of appropriate interventions. Self-Skilled Nursing Management: 1: UB dressing: problem solving use [...] Stop Time : [address] OTR/Tori [facility] 11-26-2024 History of Present illness Narrative Images [...] and treatment included: Therapeutic exercise, Neuromuscular re-education, Self-alf management, and Patient/Family/Caregiver Education. Goals for Episode of Care: updated 11/26/2024 Patient will complete HEP at Modified [place] level. (MET) Patient will increase bilateral education adviser and pinches by 5# to improve function [...] WITH LEVEL OF FUNCTION: Hand Strength R Bessemer Converter Operator Position 2 (lbs): 41 lbs L Bessemer Converter Operator Position 2 (lbs): 25 lbs Current Activities [...] was provided in selection of appropriate interventions. Self-Skilled Nursing Management: 1: UB dressing: problem solving use [...] [address] documented in this encounter [facility] 11-20-2024 Note HNO ID: [id number] Author: RADHA TSREET OTR/L Service: ? Author Type: Occupational Therapist [...] Stop Time : [address] OTR/L [facility] 11-20-2024 History of Present illness Narrative Episode [...] [address] documented in this encounter [facility] 11-17-2024 Note [facility] 11-16-2024 Note [facility] 11-16-2024 Note HNO ID: [id number] Author: TRINA SINGH RN Service: ? Author Type: Registered Nurse Type: Nursing Progress Note Filed: 11/16/2024 12:44 Note Text: Pt reports taking eliquis yesterday (11/15/24). Dr. Jim notified. [facility] 11-16-2024 Note [facility] 11-15-2024 Telephone encounter Note Okay to direct admit per Dr. De Paz Admitting contacted Pt notified. Informed that it may take >24 hours for a bed- [facility] will call to notify once a bed becomes available Advised if symptoms get worse come to ED [facility] 11-15-2024 Miscellaneous Notes Okay to direct admit per Dr. De Paz Admitting contacted Pt notified. Informed that it may take >24 hours for a bed- [facility] will call to notify once a bed becomes available Advised if symptoms get worse come to ED Under the direction of Dr. De Paz, Called and spoke with pt and advised to come to [facility] ED Dr. De Paz reviewed CT ABD, PEHR intact,concerns for CBD not emptying. Pt very tearful, wants to feel better. Continues to experience pain, unable to eat or drink without having liquid stool. Notified MD that pt and on their way to ED. Traveling from [place]. documented in this encounter [facility] 11-15-2024 Telephone encounter Note Under the direction of Dr. De Paz, Called and spoke with pt and advised to come to [facility] ED Dr. De Paz reviewed CT ABD, PEHR intact,concerns for CBD not emptying. Pt very tearful, wants to feel better. Continues to experience pain, unable to eat or drink without having liquid stool. Notified MD that pt and on their way to ED. Traveling from [place]. [facility] 11-12-2024 Note HNO ID: [id number] Author: RADHA STREET OTR/L Service: ? Author [...] OCCUPATIONAL THERAPY TREATMENT NOTE ASSESSMENT: Lauren Vaughan Shoajens tolerated the session with no issues. She [...] goals. PLAN FOR NEXT VISIT: hand exercises, education adviser strengthening SUBJECTIVE: Can we work on buttons [...] judgement used in selection of appropriate intervention. Self-Skilled Nursing Management: 1: activity analysis: buttoning, table top [...] Session Stop Time : [address]/Tori [facility] 11-12-2024 History of Present illness Narrative Episode [...] goals. PLAN FOR NEXT VISIT: hand exercises, education adviser strengthening SUBJECTIVE: Can we work on buttons [...] judgement used in selection of appropriate intervention. Self-Skilled Nursing Management: 1: activity analysis: buttoning, table top [...] [address]/Tori documented in this encounter [facility] 11-12-2024 Telephone encounter Note [facility] COORDINATION TELEPHONE ENCOUNTER Pt contacted the office to get results from her CT scan done at a Satellite facility in [place]. Results are still in process. Pt and informed. [facility] 11-12-2024 Miscellaneous Notes [facility] COORDINATION TELEPHONE ENCOUNTER Pt contacted the office to get results from her CT scan done at a Satellite facility in [place]. Results are still in process. Pt and informed. documented in this encounter [facility] 11-11-2024 History of Present illness Narrative [...] PATIENT PRESENTS WITH AN IMPLANTABLE OR ATTACHED EDGERMAN: No ALLERGIES: Reviewed and unchanged CONTRAST ALLERGY: [...] TIME: 2:32 PM documented in this encounter [facility] 11-11-2024 Note [facility] 11-09-2024 Radiology Diagnostic study note [facility] [address] [place], [place] [address] Chest PA and Lateral MR#: [id number] Acct: [id number] Name: LAUREN ALCARAZ Rep #: [id number] : 1940 F 84 From: Trinidad Doherty MD PCP: Dr. Chema Perry MD Status: REG CLI Study:Chest PA and Lateral Date of Exam: 11/09/24 Exam# [id number] Ordering Dr: Chema Perry MD EXAM: XR [...] Lateral IMPRESSION: Suggestion of COPD. Reading Location: [facility] [facility] CC: Dr. Chema Perry MD ~ Scallop Shucker: Signed [facility] 11-05-2024 Note HNO ID: [id number] Author: RADHA STREET OTR/Tori Service: ? Author [...] judgement used in selection of appropriate intervention. Self-Skilled Nursing Management: 1: Educated in ulnar nerve anatomy 2: handwrititng: regular ball point pen with education adviser vs regular ball point pen 3: handwriting: [...] Stop Time : [address] OTR/Tori [facility] 11-05-2024 History of Present illness Narrative Episode [...] judgement used in selection of appropriate intervention. Self-Skilled Nursing Management: 1: Educated in ulnar nerve anatomy 2: handwrititng: regular ball point pen with education adviser vs regular ball point pen 3: handwriting: [...] [address] documented in this encounter [facility] 11-03-2024 Instructions Denice Jacobs PA-C - 11/03/2024 3:54 PM EDT Consult to spine Neuromuscular ultrasound of the right ulnar nerve ([phone]) Follow up as needed documented in this encounter [facility] 11-03-2024 Note HNO ID: [id number] Author: MARGARET LEONARD LPN Service: ? Author Type: LICENSED NURSE Type: Progress Notes Filed: 11/03/2024 16:43 Note Text: [facility] 11-03-2024 Note [facility] 11-03-2024 History of Present illness Narrative Images from the original note were not included. [facility] Name: Lauren Alcaraz Age: [age] year old Gender: female Primary Care Provider: Cehma Perry MD Assessment/Plan: 11/03/2024 - General Neurology, [...] from the surgery she did not wear education adviser socks and did slide to the ground [...] Date Arthritis Asthma Atherosclerotic heart disease of [place] coronary artery without angina pectoris Autoimmune disorder [...] 1,000 mcg intramuscularly once every month. Vitamin X-38-iaioieohiwqjpi ammonium lactate (LAC-HYDRIN) 12 % lotion MULTIVITAMIN [...] Range Case Report Surgical Pathology Report Case: [id number] Authorizing Provider: Anila De Paz MD Collected: [...] The cystic duct margin (en face) and route service representative sections of the gallbladder wall are submitted in B1. KSZ September 20, 2024 3:38 PM Gross examination performed at [facility], [address] [place], [place] [id number] Clinical History Pre-op diagnosis: Hiatal hernia [K44.9] Epigastric pain [R10.13] Nausea and vomiting, unspecified vomiting type [R11.2] Pre-op exam [Z01.818] Performing Lab Diagnostic interpretation performed at: [facility], [address] [place] [address]# [id number] Systems Accountant: Rosales Quintana MD COMPLETE BLOOD COUNT Result [...] 4.00 k/uL Monocytes % 8.3 % Abs [place] 0.54 <0.87 k/uL Eosinophils % 0.2 % [...] INTERPRETING PHYSICIAN: Vaibhav Ann MD YS//Report ID: [id number] Creation Date: 02/11/20 11:42 am ELECTRONICALLY SIGNED [...] INTERPRETING PHYSICIAN: Vaibhav Ann MD YS//Report ID: [id number] Creation Date: 02/11/20 11:53 am ELECTRONICALLY SIGNED BY: VAIBHAV ANN MD Date Signed: 02/11/20 11:56 am This note was dictated using [employer] speech recognition software and may contain some [...] which included preparing to see the patient, oqzn-gi-awim patient care, completing clinical documentation, obtaining and/or reviewing separately obtained history, performing a medically appropriate examination, counseling and educating the patient/family/caregiver, and ordering medications, tests, or procedures. documented in this encounter [facility] 11-02-[address] ABD pel IV con PPI Full liquid diet [facility] 11-02-[address] ABD pel IV con PPI Full liquid diet documented in this encounter [facility] 11-01-2024 Instructions Humza Camejo MD - [...] and you should strongly consider bringing a armor reconnaissance vehicle driver. documented in this encounter [facility] 11-01-2024 Note Date of Procedure 11/01/2024. Export Freight Specialist Information Outreach Director: NEERU. Start time: 3:43 PM. Stop time: 3:43 PM. 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 Interval Change Right Eye Worse. Left Eye Worse. 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 documented in this encounter [facility] 10-29-2024 Telephone encounter Note Incoming call from [facility] pharmacy states the compound that was sent over they do not cover it and it would have to be sent to a different pharmacy. Sandie Messina [facility] 10-29-2024 Miscellaneous Notes [facility]coming [facility] from [facility] states the compound that was sent over they do not cover it and it would have to be sent to a different pharmacy. Sandie Messina documented in this encounter [facility] 10-29-2024 Note [facility] 10-29-2024 History of Present illness Narrative Name: [...] 2024 2:07 PM documented in this encounter [facility] 10-29-2024 Note HNO ID: [id number] Author: RADHA STREET OTR/L Service: ? Author Type: Occupational Therapist Type: Progress Notes Filed: 10/29/2024 12:32 Note Text: Episode Visit Count: 1 Therapist That Will Accept/Oversee The Plan Of Care: [address] Start of Care Date: 10/29/24 Onset Date: 10/29/22 Plan of Care Certification Date: 10/29/24 Next Certification Due Date: 12/28/24 Patient Identified by Name and Date of : Yes [facility] OCCUPATIONAL THERAPY EVALUATION [...] 10/29/24 Patient will complete HEP at Modified [place] level. Patient will increase bilateral education adviser and pinches by 5# to improve function [...] Planned: 8 Planned Treatment Interventions: Therapeutic exercise (45848), Neuromuscular re-education (17053), Self-alf management (50604), Patient/Family/Caregiver Education PLAN FOR NEXT VISIT:assess different writing utensils, proximal stability? button hook, gentle education adviser strengthening Patient demonstrates good understanding of plan [...] Assistance Available: 24-Hour Equipment Owned: Dressing Stick, Industrial Gas Production Operator Pain: Pain Pain Level: 0 (mild arthritic [...] thoracic kyphosis, Forward head Hand Strength R Bessemer Converter Operator Position 2 (lbs): 35 lbs L Bessemer Converter Operator Position 2 (lbs): 24 lbs R Lateral [...] Modified Independent Bathing (more content not included)... [facility] 10-29-2024 History of Present illness Narrative Images from the original note were not included. Episode Visit Count: 1 Therapist That Will Accept/Oversee The Plan Of Care: [address] Start of Care Date: 10/29/24 Onset Date: 10/29/22 Plan of Care Certification Date: 10/29/24 Next Certification Due Date: 12/28/24 Patient Identified by Name and Date of : Yes [facility] OCCUPATIONAL THERAPY EVALUATION [...] 10/29/24 Patient will complete HEP at Modified [place] level. Patient will increase bilateral education adviser and pinches by 5# to improve function [...] Planned: 8 Planned Treatment Interventions: Therapeutic exercise (29656), Neuromuscular re-education (70090), Self-alf management (87972), Patient/Family/Caregiver Education PLAN FOR NEXT VISIT:assess different writing utensils, proximal stability? button hook, gentle education adviser strengthening Patient demonstrates good understanding of plan [...] Assistance Available: 24-Hour Equipment Owned: Dressing Stick, Industrial Gas Production Operator Pain: Pain Pain Level: 0 (mild arthritic [...] thoracic kyphosis, Forward head Hand Strength R Bessemer Converter Operator Position 2 (lbs): 35 lbs L Bessemer Converter Operator Position 2 (lbs): 24 lbs R Lateral [...] Review/Additional Education TREATMENT: OT Treatment Interventions : Self-Skilled Nursing Management Evaluation Self-Skilled Nursing Management: 1: Pt and spouse educated in [...] [address]/Tori documented in this encounter [facility] 10-18-2024 Telephone encounter Note 10/18/24 PCP is listed in the patient's chart. Thank you! -IN [facility] 10-18-2024 Miscellaneous Notes 10/18/24 PCP is listed in the patient's chart. Thank you! -IN documented in this encounter [facility] 10-14-2024 Evaluation note Diagnosis Onset Date [...] of spine chronic October 22, 2024 2:11pm [facility] Work Phone: 1(939) 392-887302-26-2025 Instructions* Patient Instructions* Laisha Lizarraga APRN.ALBERT - 10/13/2024 2:00 PM EST I will talk w/ my colleagues re: what would be best to help w/ the forward neck curvature, I.e.- PTfor cervical spine, vs other . Also ask your home rehab trainer about a device for this as [...] up in ~3-6 mo documented in this encounterProm[facility] History of Present illness Narrative* Laisha Lizarraga APRN.CNP - 10/13/2024 1:15 PM EST Images from the original note were not included. Lauren Alcaraz 1940 [address] [facility] [address] October 13, 2024 [facility] [...] have the numbness/tingling in feet evaluated better [phone] Follow up in ~3-6 months Today, Lauren [...] 1,000 mcg intramuscularly once every month. Vitamin S-80-ecjnuvryojeedi ammonium lactate (LAC-HYDRIN) 12 % lotion MULTIVITAMIN [...] from 2007 DATE: June 15, 2008 NO: [id number] Indication: Question of seizure Medications: None given [...] vs other . Also ask your home rehab trainer about a device for this as [...] on the date of service which included mmlz-fb-ivhh patient care and counseling and educating the patient/spouse. Laisha Lizarraga, MSN, SALES AND LEASING CONSULTANT-C, CNRN CC: 1. No primary care provider [...] Signs: LMP (LMP Unknown) documented in this encounterProm[facility]ica [facility]02-26-[facility] History of Present illness Narrative* Anila [...] Date Arthritis Asthma Atherosclerotic heart disease of [place] coronary artery without angina pectoris Autoimmune disorder [...] 1,000 mcg intramuscularly once every month. Vitamin Y-53-vovvzvazbygmny ammonium lactate (LAC-HYDRIN) 12 % lotion MULTIVITAMIN [...] - Diet as tolerated - 5mg of [place] q6hr for 2 weeks until follow up with pain mgmt - Follow up 4 weeks November MD [place] General Surgery PGY2 I saw and evaluated the patient. Discussed with the resident and agree with resident's findings andplan as documented in the resident's note. Anila De Paz MD documented in this encounterPromedica [facility]02-06-2025 Note[facility]-2025 Note[facility]-04-2025 Note[facility]-2025 [facility]-2025 Note [facility]01-28-2025 Instructions* Patient Instructions* Brenda Moreland APRN.EMERGENCY MEDICAL TECH - 09/14/2024 2:02 PM EST PATIENT PREOPERATIVE INSTRUCTIONS Anila De Paz has scheduled you for your procedure at this surgery center: [facility] Scheduling Office: [phone] [address] [place] [address]. Please read below carefully for your personalized instructions. Arrival Time for Surgery: - To obtain your arrival time for surgery, call your physician's office the day before your surgery. - If your surgery is scheduled for Friday, call the Friday before. Your surgeon s program scheduler will tell you what time to call the office. - If you have not reached the departmental program scheduler by 5 P.M., call [phone] after 5 P.M. the day before your [...] office. If you are currently using a ovza-vsk-igwx injectable or oral medication for diabetes or [...] Advance Directive, please fax a copy to [phone] or email to for it to be [...] day. Brenda Moreland APRN.CNP documented in this encounterPromedica [facility]01-28-2025 History and physical note * Brenda [...] large neck Non-male patient STOP-Bang Score: 4 [id number] Score: Age: >=75 Sex: female CHF history: No Hypertension history: Yes Stroke/TIA/thromboembolism history: Yes Vascular disease history: Yes Diabetes history: No [id number]-[id number] Score: 7 ARISCAT Score: Age: >80 Preoperative [...] for: arrhythmia, atrial fibrillation, CHF and recent [place]. GI: Positive for: abdominal pain and GERD Negative for: dysphagia, diverticulitis, GI bleed <30 days, hepatitis, irritable bowel syndrome,inflammatory bowel disease, liver disease, nausea, vomiting and ETOH >2 drinks/day. : Negative for: dysuria, hematuria, nephrolithiasis and renal failure. PALLIATIVE CARE NURSE: Negative for abnormal vaginal bleeding, abnormal vaginal [...] Date Arthritis Asthma Atherosclerotic heart disease of [place] coronary artery without angina pectoris Autoimmune disorder [...] 1,000 mcg intramuscularly once every month. Vitamin J-79-hcpkksbzzzwloz ammonium lactate (LAC-HYDRIN) 12 % lotion denosumab [...] 402 QTC Calculation (Bazett) 448 Calculated P [place] 42 Calculated R [place] -38 Calculated T [place] 49 Impression NORMAL SINUS RHYTHM LEFT AXIS DEVIATION POOR R WAVE PROGRESSION INFERIOR MYOCARDIAL INFARCTION , AGE UNDETERMINED ABNORMAL ECG Confirmed by MD DUNG, SOURAV ([id number]), online content editor TONYA IVEY ([id number]) on 08/03/2024 4:15:08 PM Recent Results (from the past 26368 hour(s)) ECHO Collection Time: 07/09/24 11:20 AM [...] which included preparing to see the patient, xvwv-py-tbpm patient care, completing clinical documentation, obtaining and/or reviewing separately obtained history, performing a medically appropriate examination, counseling and educating the pat ient/family/caregiver, and ordering medications, tests, or procedures. SIGNATURE: Brenda Moreland APRN.CNP PATIENT NAME: Lauren Alcaraz DATE: September 14, 2024 TIME: 1:52 PM PAGER/CONTACT #: [facility]01-28-2025 History and physical note* Brenda Moreland APRN.EMERGENCY MEDICAL TECH - 09/14/2024 1:52 PM EST Images from [...] large neck Non-male patient STOP-Bang Score: 4 [id number] Score: Age: >=75 Sex: female CHF history: No Hypertension history: Yes Stroke/TIA/thromboembolism history: Yes Vascular disease history: Yes Diabetes history: No [id number]-SWRr Score: 7 ARISCAT Score: Age: >80 Preoperative [...] for: arrhythmia, atrial fibrillation, CHF and recent [place]. GI: Positive for: abdominal pain and GERD Negative for: dysphagia, diverticulitis, GI bleed <30 days, hepatitis, irritable bowel syndrome,inflammatory bowel disease, liver disease, nausea, vomiting and ETOH >2 drinks/day. : Negative for: dysuria, hematuria, nephrolithiasis and renal failure. PALLIATIVE CARE NURSE: Negative for abnormal vaginal bleeding, abnormal vaginal [...] Date Arthritis Asthma Atherosclerotic heart disease of [place] coronary artery without angina pectoris Autoimmune disorder [...] 1,000 mcg intramuscularly once every month. Vitamin Z-34-yiuexytqzyjgwp ammonium lactate (LAC-HYDRIN) 12 % lotion denosumab [...] 402 QTC Calculation (Bazett) 448 Calculated P [place] 42 Calculated R [place] -38 Calculated T [place] 49 Impression NORMAL SINUS RHYTHM LEFT AXIS DEVIATION POOR R WAVE PROGRESSION INFERIOR MYOCARDIAL INFARCTION , AGE UNDETERMINED ABNORMAL ECG Confirmed by MD DUNG, SOURAV ([id number]), online content editor TONYA IVEY ([id number]) on 08/03/2024 4:15:08 PM Recent Results (from the past 31690 hour(s)) ECHO Collection Time: 07/09/24 11:20 AM [...] which included preparing to see the patient, znpb-jx-drmq patient care, completing clinical documentation, obtaining and/or reviewing separately obtained history, performing a medically appropriate examination, counseling and educating the pat ient/family/caregiver, and ordering medications, tests, or procedures. SIGNATURE: Brenda Moreland APRN.CNP PATIENT NAME: Lauren Alcaraz DATE: September 14, 2024 TIME: 1:52 PM PAGER/CONTACT #: documented in this encounterPromedica [facility]01-27-2025 Nurse Note* Ana Fuentes RN - [...] OK to discharge. Ana Fuentes RN BSN [facility]01-27-2025 Nurse Note* Ana Fuentes RN - [...] RN In Department: GASTROENTEROLOGY documented in this encounterPromedica Defiance [facility]01-27-2025 Nurse Note* Ana Fuentes RN - [...] MATERIAL: Procedure Discharge Instructions REFERRAL (RECOMMENDATION): None [facility]01-27-2025 NoteQ3 Patient Name: Lauren Alcaraz Procedure Date: 09/13/2024 12:35 PM Date of : 1940 Admit Type: Outpatient Age: 84 Gender: Female Note Status: Finalized Attending MD: Alisa Haile MD, [id number] Procedure: Upper EUS Indications: Dilated pancreatic duct [...] to home. Procedure Code(s): --- Professional --- 34410 Diagnosis Code(s): --- Professional --- K44.9 K80.50 K86.89 K83.8 CPT copyright 2020 [employer] (more content not included)...PROVATION 09-13-2024 NoteQ3 Patient Name: Lauren Alcaraz Procedure Date: 09/13/2024 12:34 PM Date of : 1940 Admit Type: Outpatient Age: 84 Gender: Female Note Status: Finalized Attending MD: lAisa Haile MD, [id number] Procedure: ERCP Indications: Bile duct stone(s) Providers: Alisa Haile MD, Arturo Olsen MD (Fellow) Patient Profile: This is an 84 year old female. Refer to note in patient chart for documentation of history and physical. Referring Physician: Susan Srinivasna (Referring MD), Anila De Paz MD (Referring [...] administered by the anesthesia team. Findings: The manufacturing industrial engineer film was normal. Despite multiple attempts to [...] hernia repair. Procedure Code(s): --- Professional --- 69583 Diagnosis Code(s): --- Professional --- K80.50 CPT copyright 2020 [employer]. All rights reserved. Attending Participation: I was present and participated during the entire procedure, including non-guillermo portions. Scope In: 1:37:28 PM Scope Out: 2:05:[address] Alisa Haile MD 09/13/2024 2:08:23 PM This report has been signed electronically by Alisa Haile MD Number of Addenda: 0 Note Initiated On: 09/13/2024 12:34 [id number] NoteOhio[facility]01-27-[facility]25 History and physical note* Arturo Olsen MD - 09/13/2024 1:00 PM EST PROCEDURAL SEDATION HISTORY AND PHYSICAL EXAM SERVICE DATE: 09/13/2024 SERVICE TIME: 1232 Subjective HPI: This is a 84 year old female who presents with Dilated PD and bile duct stone PAST ANESTHESIA HISTORY:No history of adverse event PAST MEDICAL HISTORY Diagnosis Date Arthritis Asthma Atherosclerotic heart disease of [place] coronary artery without angina pectoris Autoimmune disorder [...] FLUTICASONE,) 50 mcg/actuation nasal spray Use 1 [place] in each nostrilonce daily. donepezil (ARICEPT) 10 mg tablet Take 1 tablet by mouth daily with breakfast. gabapentin (NEURONTIN) 100 mg capsule as needed. traMADol (ULTRAM) 50 mg tablet Take 25 mg by mouth two times a day. famotidine (PEPCID) 10 mg tablet Take 10 mg by mouth twice daily. DODEX 1,000 mcg/mL Inject 1,000 mcg intramuscularly once every month. Vitamin F-80-rcdkgotliladxb ammonium lactate (LAC-HYDRIN) 12 % lotion BD [...] 13, 2024 TIME: 12:32 PM Created 2023 [facility] Work Phone: 1(263) 649-922901-27-2025 History and physical note* Arturo Olsen MD - 09/13/2024 1:00 PM EST PROCEDURAL SEDATION HISTORY AND PHYSICAL EXAM SERVICE DATE: 09/13/2024 SERVICE TIME: 1232 Subjective HPI: This is a 84 year old female who presents with Dilated PD and bile duct stone PAST ANESTHESIA HISTORY:No history of adverse event PAST MEDICAL HISTORY Diagnosis Date Arthritis Asthma Atherosclerotic heart disease of [place] coronary artery without angina pectoris Autoimmune disorder [...] FLUTICASONE,) 50 mcg/actuation nasal spray Use 1 [place] in each nostrilonce daily. donepezil (ARICEPT) 10 mg tablet Take 1 tablet by mouth daily with breakfast. gabapentin (NEURONTIN) 100 mg capsule as needed. traMADol (ULTRAM) 50 mg tablet Take 25 mg by mouth two times a day. famotidine (PEPCID) 10 mg tablet Take 10 mg by mouth twice daily. DODEX 1,000 mcg/mL Inject 1,000 mcg intramuscularly once every month. Vitamin R-33-tvlwlxohpusvfo ammonium lactate (LAC-HYDRIN) 12 % lotion BD [...] TIME: 12:32 PM 2023 documented in this encounterPromedica Defiance [facility]01-27-2025 Nurse Note* Tonya De Santiago RN [...] Tonya De Santiago RN In Department: GASTROENTEROLOGY [facility]01-24-2025 [facility]Ohio[facility]01-24-2025 History of Present illness Narrative* Nicolás [...] Care Visit completed when applicable. Brenda Kramer, clinical product specialist B.Allie Beltrán DO documented in this encounterPromedica Defiance [facility] Hospital01-23-2025 Telephone encounter Note * Telephone Encounter - Jacqueline Noland LPN - 09/09/2024 11:32 AM EST Images from [phone] request faxed to [facility] . [facility]01-23-2025 Miscellaneous Notes* Telephone Encounter - Jacqueline Noland LPN - 09/09/2024 11:32 AM EST Images from [phone] request faxed to [facility] . documented in this encounterPromedica Defiance [facility] Hospital01-22-2025 Telephone encounter Note * Telephone Encounter - Taylor Forrest RN - 09/08/2024 2:34 PM EST Spoke with Lauren's Delroy- EUS is scheduled for 09/13/[address] Haile. Reviewed Instructions for Eliquis and Aspirin pre-op. Understands that Eliquis is to be held TWO days before surgery Aspirin only held for ONE day prior to surgery Sent updated [employer] message. [facility]01-22-2025 Miscellaneous Notes* Telephone Encounter - Taylor Forrest RN - 09/08/2024 2:34 PM EST Spoke with Lauren's Delroy- EUS is scheduled for Fri09/13/[address] Haile. Reviewed Instructions for Eliquis and Aspirin pre-op. Understands that Eliquis is to be held TWO days before surgery Aspirin only held for ONE day prior to surgery Sent updated [employer] message. documented in this encounterPromedica Defiance [facility] Hospital01-22-2025 Telephone encounter Note * Telephone Encounter - Susan Srinivasan MD - 09/08/2024 1:51 PM EST Spoke with patient and spouse about MRI findings and that EUS was necessary. All Qs answered. They are willing to come on Friday for EUS Dr. Oumar Murray. Susan Srinivasan MD [facility] Work Phone: 1(594) 848-371701-22-2025 Miscellaneous Notes* Telephone Encounter - Susan Srinivasan MD - 09/08/2024 1:51 PM EST Spoke with patient and spouse about MRI findings and that EUS was necessary. All Qs answered. They are willing to come on Friday for EUS Dr. Oumar Murray. Susan Srinivasan MD documented in this encounterPromedica Defiance [facility] Hospital01-21-2025 History of Present illness Narrative* Jaqueline [...] PATIENT PRESENTS WITH AN IMPLANTABLE OR ATTACHED EDGERMAN: No ALLERGIES: Reviewed and unchanged CONTRAST ALLERGY: NO. EXAM: MRI - CONTRAST TYPE: GROUP II PERIPHERAL IV DATA: Ambulatory: A peripheral IV was started in the Left upper extremity with a Angio cath: 22 gauge. RADIOLOGY DEPARTMENT: MR; Exam(s) Completed: Body: Pancreas/Biliary SIGNATURE: RT Brice(R) PATIENT NAME: Lauren Alcaraz DATE: September 07, 2024 TIME: 9:32 AM documented in this encounterPromedica Defiance [facility] Hospital01-21-2025 NoteOhio[facility]01-21-2025 Telephone encounter Note* Telephone Encounter - [...] asa until 1 day pre-op? Joan Nolasco [facility] Work Phone: [phone] [id number] Miscellaneous Notes* Telephone Encounter - Joan Streeter [...] Joan Streeter RN- PAC documented in this encounterPromedica [facility]01-[facility]25 Telephone encounter Note * Telephone Encounter - Sourav Marcial MD - 09/06/2024 5:50 PM EST She can hold aspirin only for 1 day prior to her surgery date as she had 2 coronary artery stents and cannot stop aspirin for any longer than 24 hours. [facility]01-20-2025 Telephone encounter Note* Telephone Encounter - Misty Reyes RN - 09/06/2024 2:07 PM EST SHELIA: 08/03/2024- Dung FOV: 02/01/2025- Dung Forward to Dr. Marcial. Please advise. [facility]01-20-2025 Telephone encounter Note* Telephone Encounter - [...] prior to DOS. Joan Streeter RN- PACC [facility]01-20-2025 NoteOhiohealth [facility]01-20-2025 History of Present illness Narrative* Joan Streeter RN - 09/06/2024 9:22 AM EST RN Pre Visit Questionnaire for upcoming PACC appointment PROCEDURE : LAPAROSCOPIC RPR PARAESOHAGEAL HERNIA W/ FUNDOPLASTY +/- MESH SURGEON : Anila De Paz MD PROCEDURE DATE : 2/3 PACC APPT : 09/15 Do you see a e commerce merchant, forest pathology associate professor, accounts receivable associate or other specialist within or outside of [facility]? SPECIALISTS: CARDIOLOGY: Terrazzo Worker Dr. Sourav Marcial , Last office visit 08/03 NEUROLOGY: Denice Jacobs PA-C OV 08/06/24 PRIMARY CARE PHYSICIAN: Chema Perry MD ([place]) OV 04/22/24 in scanned doc 05/14/24 [facility]: Tamiko Ku SALES AND LEASING CONSULTANT-C OV 11/12/23 in scanned doc 07/19 Denies [...] doc 07/19 Most recent CARDIAC CATH: 09/2013 [facility] Most recent carotid duplex 12/02/23 in scanned doc 07/19: Display only: Drag Down ([id number]) on 08/03/2024 4:15 PM by Sourav Marcial [...] instructions and voices comprehension and compliance. 09/09 nd SIGNATURE: Joan Streeter RN PATIENT NAME: Lauren Alcaraz DATE: September 06, 2024 TIME: 9:23 AM PAGER/CONTACT PHONE: documented in this encounterPromedica Defiance [facility] Hospital01-17-2025 History and physical note * Anila [...] Date Arthritis Asthma Atherosclerotic heart disease of [place] coronary artery without angina pectoris Autoimmune disorder [...] No history of dysuria, frequency or incontinence PALLIATIVE CARE NURSE: Negative for abnormal vaginal bleeding, abnormal vaginal [...] DATE: September 03, 2024 TIME: 3:00 PM [facility]01-17-2025 History and physical note* Anila De [...] Date Arthritis Asthma Atherosclerotic heart disease of [place] coronary artery without angina pectoris Autoimmune disorder [...] No history of dysuria, frequency or incontinence PALLIATIVE CARE NURSE: Negative for abnormal vaginal bleeding, abnormal vaginal [...] 2024 TIME: 3:00 PM documented in this encounterPromedica Defiance [facility] Hospital01-17-2025 NoteOhio[facility] Hospital01-17-2025 History of Present illness Narrative* Taylor Forrest RN - 09/03/2024 2:47 PM EST Pt with , Delroy PACC questionnaire complete: In-person PACC Wears O2 at night and when napping Slow to wake up from anesthesia - note sent to PACC Pain Management Reviewed surgical plan with pt- agreed upon date of 09/20/[address] De Paz at [facility] [place] ELIQUIS INSTRUCTIONS per Dr. Marcial 08/03/25 The [...] am of surgery Pt requested transfer to [facility] in [place] for rehab. Will inform team - advised pt to inform corrections caseworker before discharge. AMBULATORY PATIENT EDUCATION NOTE TOPIC: [...] patient education: 20 minutes. documented in this encounterPromedica Defiance [facility] Hospital01-08-2025 Telephone encounter Note * Telephone Encounter [...] Provided pt and this RN contact info [facility]01-08-2025 Miscellaneous Notes* Telephone Encounter - Taylor [...] this RN contact info documented in this encounterPromedica Defiance Regional Hospital12-20-2024 Instructions* Patient Instructions* Denice Jacobs PA-C - 08/06/2024 10:30 AM EST Laboratory studies EMG of the arm and leg Follow up in [place] (Tuesdays and Wednesdays) after work up documented in this encounterPromedica Defiance Regional Hospital12-20-2024 NoteOhiohealth Doctors Hospital12-20-2024 History of Present illness Narrative* Denice Jacobs PA-C - 08/06/2024 9:47 AM EST Images from the original note were not included. [facility] Name: Lauren Alcaraz Age: [...] Hx of dementia and following with brain [facility], referred for paresthesias. Last visit on 07/01/24 [...] her handwriting. Has no burning pain or vxli-mcp-wwdxeds feeling, just reports a lack of sensation [...] primary care who is outside of the [facility]. Numbness in feet: yes, bottom of [...] Date Arthritis Asthma Atherosclerotic heart disease of [place] coronary artery without angina pectoris Autoimmune disorder [...] FLUTICASONE,) 50 mcg/actuation nasal spray Use 1 [place] in each nostrilonce daily. donepezil (ARICEPT) 10 mg tablet Take 1 tablet by mouth daily with breakfast. gabapentin (NEURONTIN) 100 mg capsule as needed. traMADol (ULTRAM) 50 mg tablet Take 25 mg by mouth two times a day. famotidine (PEPCID) 10 mg tablet Take 10 mg by mouth twice daily. DODEX 1,000 mcg/mL Inject 1,000 mcg intramuscularly once every month. Vitamin D-97-picfumfhohdkmp ammonium lactate (LAC-HYDRIN) 12 % lotion BD [...] Skin Biopsy: This note was dictated using [employer] speech recognition software and may contain some [...] which included preparing to see the patient, dwal-hi-adkq patient care, completing clinical documentation, obtaining and/or reviewing separately obtained history, performing a medically appropriate examination, counseling and educating the pat ient/family/caregiver, and ordering medications, tests, or procedures. documented in this encounterPromedica Defiance Regional Hospital12-17-2024 NoteNORMAL SINUS RHYTHM LEFT AXIS DEVIATION POOR R WAVE PROGRESSION INFERIOR MYOCARDIAL INFARCTION , AGE UNDETERMINED ABNORMAL ECG Confirmed by MD MARCIAL QARAB ([id number]), online content editor TONYA IVEY ([id number]) on 08/03/2024 4:15:08 PMMERCY HEALTH SPR[facility] CENTERRT AND VASCULAR [id number] Instructions* Patient Instructions* Sourav Marcial MD - [...] Interventional procedures are not considered surgery. A e commerce merchant (not a surgeon) performs theseprocedures to reduce [...] part of your treatment. documented in this encounterPromedica Defiance Regional Hospital12-17-2024 NoteOhiohealth Doctors Hospital12-17-2024 History of Present illness Narrative* Sourav Marcial MD - 08/03/2024 3:29 PM EST Images from the original note were not included. [facility] [place] Justus Saravia Department of Cardiovascular Medicine SECTION OF [facility] CARDIOLOGY [facility] August 03, 2024 OUTPATIENT VISIT TYPE [...] Date Arthritis Asthma Atherosclerotic heart disease of [place] coronary artery without angina pectoris Autoimmune disorder [...] FLUTICASONE,) 50 mcg/actuation nasal spray Use 1 [place] in each nostrilonce daily. donepezil (ARICEPT) 10 mg tablet Take 1 tablet by mouth daily with breakfast. gabapentin (NEURONTIN) 100 mg capsule as needed. traMADol (ULTRAM) 50 mg tablet Take 25 mg by mouth two times a day. famotidine (PEPCID) 10 mg tablet Take 10 mg by mouth twice daily. DODEX 1,000 mcg/mL Inject 1,000 mcg intramuscularly once every month. Vitamin E-75-ynjqvdkdusyokb ammonium lactate (LAC-HYDRIN) 12 % lotion MULTIVITAMIN [...] than 50% stenosis with mild plaque disease [facility] nuclear SPECT scan done on May 2023 also shows normal LV function with no evidence of ischemia ejection fraction of 89%. However, it was done with 69% of maximal Peritrate heart rate obtained. Echocardiogram done in [facility] on 09 July 2024 shows normal LV function withejection fraction of 59%, 2+ tricuspid regurgitation with right ventricular systolic pressure of 59mmHg. 08/03/2024 EKG showed normal sinus rhythm with old inferior wall OH and poor R wave progression with no [...] low fat diet. Sourav Marcial MD, FACC. Lehr Cutter, Dept of Cardiology and Medicine, [facility]. Special Officer of Ambulatory Cardiology, [facility]. Special Officer of Cardiac Catheterization laboratory, [facility]. Clinical Asst. mri special procedures technologist, [facility] and [facility] Staff [employer] Worker, [facility] [place], [facility]. 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 documented in this encounterPromedica Defiance Regional Hospital12-04-2024 Nurse Note* Gina Dietrich LPN - [...] MATERIAL: Procedure Discharge Instructions REFERRAL (RECOMMENDATION): None [facility]12-04-2024 Nurse Note* Gina Dietrich LPN - [...] RN In Department: GASTROENTEROLOGY documented in this encounterPromedica Defiance Regional Hospital12-04-2024 NoteQ3 Patient Name: Lauren Alcaraz Procedure Date: 07/21/2024 4:12 PM Date of : 1940 Admit Type: Outpatient Age: 83 Gender: Female Note Status: Finalized Attending MD: Eliazar Brown MD, [id number] Procedure: Upper GI endoscopy Indications: Hiatal hernia [...] were provided to the (more content not included)...[id number] Nurse Note* Trina Singh RN - 07/21/2024 [...] By: Trina Singh RN In Department: GASTROENTEROLOGY [facility]12-02-2024 Evaluation note* Diagnosis Onset Date Resolution [...] of spine chronic October 22, 2024 2:11pm [facility] Work Phone: 1(593) 362-624912-02-2024 Telephone encounter Note* Telephone Encounter - Dottie Horowitz LPN - 07/19/2024 3:53 PM EST Printed from [employer]. Scanned into Epic through Onbase scanning. Dottie Horowitz LPN [facility]12-02-2024 Miscellaneous Notes* Telephone Encounter - Dottie Horowitz LPN - 07/19/2024 3:53 PM EST Printed from [employer]. Scanned into Epic through Onbase scanning. Dottie Horowitz LPN * Telephone Encounter - Willa Torres APRN.CNP - 07/19/2024 3:43 PM EST Please request last cardiac OV and testing. documented in this encounterPromedica Defiance [facility] Hospital12-02-2024 Telephone encounter Note * Telephone Encounter - Willa Torres APRN.CNP - 07/19/2024 3:43 PM EST Please request last cardiac OV and testing. [facility]11-29-2024 History and physical note* Willa Torres [...] 129/67 Hyperlipidemia Assessment: c/w statin Seizure disorder ([facility]) Assessment: controlled on rx, last known seizure over 10 years ago History of DVT (deep vein thrombosis) Assessment: hx 2011, tx with coumadin, no recurrence Obstructive sleep apnea syndrome Assessment: c/w CPAP Bronchiectasis ([facility]) Assessment: rx as needed Gastroesophageal reflux disease [...] large neck Non-male patient STOP-Bang Score: 2 [id number] Score: Age: >=75 Sex: female CHF history: No Hypertension history: No Stroke/TIA/thromboembolism history: Yes Vascular disease history: Yes Diabetes history: No [id number] Score: 6 ARISCAT Score: Age: >80 Preoperative [...] pain, CHF, congenital heart defect, hypertension, recent OH, PVD, open heart surgery and valve surgery. GI: See HPI. Positive for: dysphagia, esophageal stricture (hx dilation), GERD (hx, otc rx as needed) and vomiting (intermittently) Negative for: abdominal pain, hepatitis, irritable bowel syndrome, inflammatory bowel disease, liver disease, nausea, pancreatitis and ETOH >2 drinks/day. : Positive for: urinary incontinence (+OAB, on rx). 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 Taking Yes donepezil [...] 1,000 mcg intramuscularly once every month. Vitamin Q-41-lsccgttymezgcr Taking Yes ammonium lactate (LAC-HYDRIN) 12 % [...] 8760 hour(s)). Recent Results (from the past 87972 hour(s)) ECHO Collection Time: 07/09/24 11:20 AM [...] 16, 2024 TIME: 2:48 PM PAGER/CONTACT #: [facility]11-29-2024 History and physical note* Willa Torres APRN.CNP - 07/16/2024 2:48 PM EST Images from the original note were not included. [place] [facility] HISTORY [...] following [facility], last OV 11/12/2023 scanned into [facility]. Stress test 05/2023 negative for ischemia. Pt [...] large neck Non-male patient STOP-Bang Score: 2 [id number] Score: Age: >=75 Sex: female CHF history: No Hypertension history: No Stroke/TIA/thromboembolism history: Yes Vascular disease history: Yes Diabetes history: No [id number] Score: 6 ARISCAT Score: Age: >80 Preoperative [...] pain, CHF, congenital heart defect, hypertension, recent OH, PVD, open heart surgery and valve surgery. GI: See HPI. Positive for: dysphagia, esophageal stricture (hx dilation), GERD (hx, otc rx as needed) and vomiting (intermittently) Negative for: abdominal pain, hepatitis, irritable bowel syndrome, inflammatory bowel disease, liver disease, nausea, pancreatitis and ETOH >2 drinks/day. : Positive for: urinary incontinence (+OAB, on rx). 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 Taking Yes donepezil [...] 1,000 mcg intramuscularly once every month. Vitamin A-38-pmwstrjyhzkypi Taking Yes ammonium lactate (LAC-HYDRIN) 12 % [...] 8760 hour(s)). Recent Results (from the past 11906 hour(s)) ECHO Collection Time: 07/09/24 11:20 AM [...] 2:48 PM PAGER/CONTACT #: documented in this encounterPromedica Defiance Regional Hospital11-29-2024 Instructions* Patient Instructions* Willa Torres APRN.CNP - 07/16/2024 2:42 PM EST Images from the original note were not included. [facility] PATIENT PREOPERATIVE INSTRUCTIONS No ref. provider found has scheduled you for your procedure at this surgery center: [facility] [place] Scheduling Office: [phone] --[address] [place] [address]. Please read below carefully for your personalized [...] office. If you are currently using a caui-dkh-wctj injectable or oral medication for diabetes or [...] or other anticoagulants without consulting with your e commerce merchant or prescribing physician. - Stop ALL herbal [...] Procedures: - YOU MUST HAVE A RESPONSIBLE AGRICULTURIST TAKE YOU HOME. A PRECISION HONING MACHINE OPERATOR OR LICENSED PSYCHIATRIC TECHNICIAN CANNOT BE MADE A RESPONSIBLE AGRICULTURIST. - We recommend that a responsible person [...] call the Friday before. Your surgeon s program scheduler will tell you what time to call the office. - If you have not reached the departmental program scheduler by 5 P.M., call [phone] after 5 P.M. the day before your surgery. Please be aware that emergency situations arise, which may delay or change your surgical time. If this happens, we will notify you as soon as possible and regret any inconvenience. If you already have an Advance Directive, please fax a copy to [phone] or email to for it to be [...] day. Willa Torres APRN.ALBERT documented in this encounterPromedica Defiance Regional Hospital11-27-2024 Telephone encounter Note * Telephone Encounter [...] have family/friend present for procedure transport home:Patient/patient route service representative was told that if they do [...] area. Any barriers to Patient learning: Patient/Patient Damage Appraiser responded appropriately on phone. Type of instruction given: Verbal by telephone contact. Jaqueline Del Cid RN [facility]11-27-2024 Miscellaneous Notes* Telephone Encounter - Jaqueline [...] have family/friend present for procedure transport home:Patient/patient route service representative was told that if they do [...] area. Any barriers to Patient learning: Patient/Patient Damage Appraiser responded appropriately on phone. Type of instruction given: Verbal by telephone contact. Jaqueline Del Cid RN documented in this encounterPromedica Defiance Regional Hospital11-21-2024 Telephone encounter Note * Telephone Encounter - Terri Orosco RN - 07/08/2024 11:05 AM EST Patients called back to office today. Spoke with spouse and all questions answered. Discussed need for holding blood thinner for EGD which spouse will reach out to local e commerce merchant for instructions. [facility]11-21-2024 Miscellaneous Notes* Telephone Encounter - Terri Orosco RN - 07/08/2024 11:05 AM EST Patients called back to office today. Spoke with spouse and all questions answered. Discussed need for holding blood thinner for EGD which spouse will reach out to local e commerce merchant for instructions. * Telephone Encounter - Mary Anne Wing - 07/07/2024 9:56 AM EST Patient called in and would like someone to go over instructions with her regarding her upcoming EGD. Please call [phone] this is her phone number the number in epic is her husbands cell. Mary Anne Nielsen documented in this encounterPromedica Defiance Regional Hospital11-20-2024 Telephone encounter Note * Telephone Encounter - Mary Anne Wing - 07/07/2024 9:56 AM EST Patient called in and would like someone to go over instructions with her regarding her upcoming EGD. Please call [phone] this is her phone number the number in epic is her husbands cell. Mary Anne Gia [facility]11-20-2024 Telephone encounter Note* Telephone Encounter - Fatimah Robbins RN - 07/07/2024 9:50 AM EST Verbal instructions given for EGD/ Instructions mailed to patient home on 07/07/2024 [facility]11-20-2024 Miscellaneous Notes* Telephone Encounter - Fatimah Robbins RN - 07/07/2024 9:50 AM EST Verbal instructions given for EGD/ Instructions mailed to patient home on 07/07/2024 documented in this encounterPromedica Defiance Regional Hospital11-18-2024 Evaluation note* Diagnosis Onset Date Resolution Status Admit Date Osteoarthritis of right knee noneact song July 05, 2024 1:18pm Atherosclerotic heart diseas e of [place] coronary artery without angina pectoris acute July [...] of spine chronic October 22, 2024 2:11pm [facility] Work Phone: 1(306) 101-778311-14-2024 Instructions* Patient Instructions* Laisha Lizarraga, CAMP COUNSELOR.EMERGENCY MEDICAL TECH - 07/01/2024 2:32 PM EST Continue the current medications as you have been 2. Contnue to be active, busy and cognitively/socially engaged 3. Be cautious with fall prevention 4. Continue to follow w/ Dr. De Paz 5. Consider seeing the Neuromuscular dept to have the numbness/tingling in feet evaluated [facility] -[phone] Follow up in ~3-6 months documented in this encounterPromedica Defiance Regional Hospital11-14-2024 History of Present illness Narrative* Laisha Lizarraga APRN.ALBERT - 07/01/2024 1:45 PM EST Lauren Alcaraz 1940 [address] [facility] [address] July 01, 2024 [place] [facility] FOLLOW-UP NOTE Accompanied by: [...] struggling with chronic back pain/scoloisis/kyphosis- following w/ [facility] -- reporting increased fine motor difficulty, poor writing legibility, shakiness -- early satiety r/t hiatal hernia Previous plan included: Will look into whether there is a holistic and all-encompassing provider you could see who can synthesize all the data from your various specialists 2. Keep working hard at the therapy and PT! 3. See what the [facility] feels about the thoracic pain tomorrow- pending that- we may consider referring you to our spine dept 4. Keep the medications the same for now Today, Lauren and her spouse returns for a routine follow up visit. She did have a visit at the [facility] and she felt that not much resulted [...] FLUTICASONE,) 50 mcg/actuation nasal spray Use 1 [place] in each nostrilonce daily. donepezil (ARICEPT) 10 [...] 1,000 mcg intramuscularly once every month. Vitamin J-87-vzfexnhrbjnlob ammonium lactate (LAC-HYDRIN) 12 % lotion BD ECLIPSE LUER-BOZEAN 3 mL 23 x 1 MULTIVITAMIN ORAL [...] from 2007 DATE: June 15, 2008 NO: [id number] Indication: Question of seizure Medications: None given [...] during this recording. CSF Alzheimer's Disease Biomarkers ([facility] Phospho-tau) from 01/2020 A-Beta 42: 573 T-Tau: [...] have the numbness/tingling in feet evaluated better -[phone] Follow up in ~3-6 months I spent a total of 40 minutes on the date of service which included tywt-af-togv patient care and counseling and educating the patient/spouse. Laisha Lizarraga, MSN, SALES AND LEASING CONSULTANT-C, CNRN CC: 1. No primary care provider on file., (fax) None documented in this encounterPromedica Defiance [facility] Hospital11-14-2024 NoteOhiohealth Doctors Hospital11-14-2024 Nurse Note* Arun Buenrostro MA - [...] oz) LMP (LMP Unknown) BMI 19.87 kg/m [facility]11-14-2024 Nurse Note* Arun Buenrostro MA - [...] Unknown) BMI 19.87 kg/m documented in this encounterPromedica Defiance Regional Hospital11-07-2024 History of Present illness Narrative* Jesika [...] PATIENT PRESENTS WITH AN IMPLANTABLE OR ATTACHED EDGERMAN: No ALLERGIES: Reviewed and unchanged CONTRAST ALLERGY: [...] 2024 TIME: 4:06 PM documented in this encounterPromedica Defiance Regional Hospital11-07-2024 NoteOhiohealth [facility] Hospital11-01-2024 NoteOhiohealth [facility] Hospital11-01-2024 History of Present illness Narrative* Taylor [...] - Stop all ASA and NSAID products, [place] 3 fish oil, herbal products such as ginko etc.for 7 days prior to procedure - Medication List reviewed. Patient agreed to hold Eliquis 3 days before procedure - Patient aware - must have a responsible armor reconnaissance vehicle driver on the day of procedure. Patient stated good understanding and agreed with plan. Provided contact number for this RN. 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 [...] No history of dysuria, frequency or incontinence PALLIATIVE CARE NURSE: Negative for abnormal vaginal bleeding, abnormal vaginal [...] EGD Echo and cardiology evaluation at the [facility] CT Chest/Abd/Pel with IV con Creat Consult to Internal Medicine SIGNATURE: Anila De Paz MD PATIENT NAME: Lauren Alcaraz DATE: June 18, 2024 TIME: 1:12 PM [facility]11-01-2024 History and physical note* Anila De [...] Date Arthritis Asthma 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 He was at the store an unable to go into detail. States that all pt's records and images were sent to [facility] - This RN is unable to locate. Last CT ABD per was in JUN 2023 at [facility]. She may have had an EGD years ago States that his 's situation is declining and her quality of life is affected. Called [facility] - only CT results they have on file are from Jun [address] Chest and CT abd results be pushed to [facility] for her appt tomorrow. CT ABD/pel w IV contrast 07/12/22 Impression: 1.) stable right inguinal hernia. Small bowel present, no obstruction seen. 2.) Large Hiatal hernia 3.) Dilatation of CBD - no obvious stones [facility]10-31-2024 Miscellaneous Notes* Telephone Encounter - Taylor Forrest RN - 06/17/2024 11:15 AM EDT Spoke briefly with pt's , Delroy. He was at the store an unable to go into detail. States that all pt's records and images were sent to [facility] - This RN is unable to locate. Last CT ABD per was in JUN 2023 at [facility]. She may have had an EGD years ago States that his 's situation is declining and her quality of life is affected. Called [facility] - only CT results they have on file are from Jun [address] Chest and CT abd results be pushed to [facility] for her appt tomorrow. CT ABD/pel w IV contrast 07/12/22 Impression: 1.) stable right inguinal hernia. Small bowel present, no obstruction seen. 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 Patient was recently in [place]'s emergency department underwent an abdomen and pelvis [...] Date Arthritis Asthma Atherosclerotic heart disease of [place] coronary artery without angina pectoris Autoimmune disorder [...] daily. azelastine 0.1% nasal spray Use 1 [place] in each nostril two times a day. cetirizine (ZYRTEC) 10 mg tablet Take 10 mg by mouth once daily as needed. diazePAM (VALIUM) 2 mg tablet Take 2 mg by mouth at bedtime as needed for anxiety. fluticasone (ALLERGY RELIEF, FLUTICASONE,) 50 mcg/actuation nasal spray Use 1 [place] in each nostrilonce daily. valACYclovir (VALTREX) 500 [...] 1,000 mcg intramuscularly once every month. Vitamin M-52-hehlgvyhuxhxcj ammonium lactate (LAC-HYDRIN) 12 % lotion BD [...] going to get a referral up to [facility] for this large hiatal hernia. Hopefully will [...] Susan Squires III, MD documented in this encounterPromedica Defiance [facility]09-30-2024 Nurse Note* Marian José, RN - [...] 06/25/2018 Last Colonoscopy: never Marian José RN [facility]09-30-2024 Nurse Note* Marian José RN - [...] never Marian José RN documented in this encounterPromedica Defiance [facility] Hospital09-16-2024 NoteDate of Procedure 05/03/2024. Export Freight Specialist Information was not able due to head position . NFL Interpretation Right Eye Diffuse loss. Left Eye Diffuse loss. Interval Change Right Eye Stable. Left Eye Stable.[id number] NoteOhiohealth Doctors Hospital09-16-2024 History of Present illness Narrative* Humza [...] - exotropia on cover/uncover - refer to child care associate for prism # dementia - possible limbic-associated [...] of its relevant components. documented in this encounterPromedica Defiance [facility] Hospital08-08-2024 Instructions* Patient Instructions* Laisha Lizarraga APRN.ALBERT - 03/25/2024 2:26 PM EDT Will look into whether there is a holistic and all-encompassing provider you could see who can synthesize all the data from your various specialists 2. Keep working hard at the therapy and PT! 3. See what the [facility] feels about the thoracic pain tomorrow- pending that- we may consider referring you to our spine dept 4. Keep the medications the same for now Follow up pending the results from the above-- potentially 3 months documented in this encounterPromedica Defiance [facility] Hospital08-08-2024 History of Present illness Narrative* Laisha Lizarraga APRN.ALBERT - 03/25/2024 1:45 PM EDT Lauren Alcaraz 1940 [address] [facility] [address] March 25, 2024 [facility] FOLLOW-UP NOTE Accompanied by: [...] of T/L spine performed on 03/19 at [facility] and they will see the doctor there [...] from 2007 DATE: June 15, 2008 NO: [id number] Indication: Question of seizure Medications: None given [...] during this recording. CSF Alzheimer's Disease Biomarkers ([facility] Phospho-tau) from 01/2020 A-Beta 42: 573 T-Tau: [...] therapy and PT! 3. See what the [facility] feels about the thoracic pain tomorrow- pending that- we may consider referring you to our spine dept 4. Keep the medications the same for now Follow up pending the results from the above-- potentially 3 months I spent a total of 40 minutes on the date of service which included zutw-ay-yqdy patient care and counseling and educating the patient/spouse. Laisha Lizarraga, MSN, SALES AND LEASING CONSULTANT-C, CNRN CC: 1. No primary care provider on file., (fax) None documented in this encounterPromedica Defiance [facility] Hospital08-08-2024 NoteOhiohealth Doctors Hospital08-07-2024 Telephone encounter Note* Telephone Encounter - Bety Henry - 03/24/2024 1:36 PM EDT Request a 30 day emergency supply (script) of Latanoprost be sent to the [facility] . I will be out of this medication in 3 to 4 days and [facility] will not fill the existing script until 04 April and I will not receive it until about April 16. Please advise me that this message has been received and the script sent to [facility]. 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 Humza Camejo MD [facility] Work Phone: 1([phone]) 779-541808-07-2024 Miscellaneous Notes* Telephone Encounter - Bety Henry - 03/24/2024 1:36 PM EDT Request a 30 day emergency supply (script) of Latanoprost be sent to the [facility] . I will be out of this medication in 3 to 4 days and [facility] will not fill the existing script until 04 April and I will not receive it until about April 16. Please advise me that this message has been received and the script sent to [facility]. 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 Humza Camejo MD documented in this encounterPromedica Defiance [facility] Hospital07-26-2024 Telephone encounter Note * Telephone Encounter - Laisha Lizarraga APRN.CNP - 03/12/2024 12:08 PM EDT The following approved medication requests have been transmitted electronically. Requested Prescriptions Signed Prescriptions Disp Refills donepezil (ARICEPT) 10 mg tablet 90 tablet 3 Sig: Take 1 tablet by mouth daily with breakfast. Authorizing Provider: LAISHA LIZARRAGA APRN.CNP [facility]07-26-2024 Miscellaneous Notes* Telephone Encounter - Laisha Lizarraga APRN.CNP - 03/12/2024 12:08 PM EDT The following approved medication requests have been transmitted electronically. Requested Prescriptions Signed Prescriptions Disp Refills donepezil (ARICEPT) 10 mg tablet 90 tablet 3 Sig: Take 1 tablet by mouth daily with breakfast. Authorizing Provider: LAISHA LIZARRAGA APRN.CNP documented in this encounterPromedica Defiance [facility] Hospital05-10-2024 Telephone encounter Note * Telephone Encounter [...] - exotropia on cover/uncover - refer to child care associate for prism # dementia - possible limbic-associated [...] of its relevant components. 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 Humza Camejo MD documented in this encounterPromedica Defiance [facility] Hospital05-10-2024 Telephone encounter Note * Telephone Encounter - Romero Ojeda PA-C - 12/26/2023 10:22 AM EDT The following approved medication requests have been transmitted electronically. Requested Prescriptions Signed Prescriptions Disp Refills donepezil (ARICEPT) 10 mg tablet 90 tablet 3 Sig: TAKE 1 TABLET BY MOUTH DAILY WITH BREAKFAST Authorizing Provider: LAISHA LIZARRAGA Ordering User: ROMERO OJEDA PA-C [facility] Work Phone: 1(613) 801-846105-10-2024 Miscellaneous Notes* Telephone Encounter - Romero Ojeda PA-C - 12/26/2023 10:22 AM EDT The following approved medication requests have been transmitted electronically. Requested Prescriptions Signed Prescriptions Disp Refills donepezil (ARICEPT) 10 mg tablet 90 tablet 3 Sig: TAKE 1 TABLET BY MOUTH DAILY WITH BREAKFAST Authorizing Provider: LAISHA LIZARRAGA Ordering User: ROMERO OJEDA PA-C documented in this encounterPromedica Defiance Regional Hospital04-04-2024 Discharge summary Author Aquiles Fang [facility] November 20, 2023 8:31am Note Date/Time November 20, 2023 8:31 am [facility] [address] [place] [address] [address] [place] [address] / REHABILITATION SERVICES DISCHARGE SUMMARY MR#: [id number] Acct: [id number] Name: LAUREN ALCARAZ Rep #: [id number] : 1940 83 From: Aquiles DAVIS T Referring Dr.: Dr. Porfirio Bloom MD Status: REG RCR Insurance: MEDICARE PART A B [place] [id number] Patient Information Patient Information: LAUREN ALCARAZ was [...] was in need and Ireferred her to [facility] of fitting. I did talk with her [...] Dr. 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 This will likely make your vision blurry for several hours, and you should strongly consider bringing a armor reconnaissance vehicle driver. Tmax: <21 per outside; Pachy: 550, [...] - exotropia on cover/uncover - refer to child care associate for prism # dementia - possible limbic-associated [...] components. 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 Humza Camejo MD documented in this encounterPromedica Defiance [facility] Hospital02-29-2024 Instructions* Patient Instructions* Laisha Lizarraga APRN.CNP [...] up in 4-6 months documented in this encounterPromedica Defiance Regional Hospital02-29-2024 History of Present illness Narrative* Laisha Lizarraga APRN.CNP - 10/16/2023 2:30 PM EST Lauren Alcaraz 1940 [address] [facility] [address] October 16, 2023 [facility] FOLLOW-UP NOTE Accompanied by: [...] from 2007 DATE: June 15, 2008 NO: [id number] Indication: Question of seizure Medications: None given [...] on the date of service which included rmjx-rn-jjnn patient care and counseling and educating the patient/spouse. Laisha Lizarraga, MSN, SALES AND LEASING CONSULTANT-C, CNRN CC: 1. No primary care provider on file., (fax) None documented in this encounterPromedica Defiance [facility] Hospital10-30-2023 Instructions* Patient Instructions* Laisha Lizarraga APRN.EMERGENCY MEDICAL TECH - 06/16/2023 2:32 PM EDT See what [...] up in 4-6 months documented in this encounterPromedica Defiance Regional Hospital10-30-2023 History of Present illness Narrative* Laisha Lizarraga APRN.ALBERT - 06/16/2023 1:45 PM EDT Lauren Alcaraz 1940 [address] [facility] [address] June 16, 2023 [facility] [...] vision lately, which she has seen her Active Directory Engineer about and who has ordered her a [...] from 2007 DATE: June 15, 2008 NO: [id number] Indication: Question of seizure Medications: None given [...] during this recording. CSF Alzheimer's Disease Biomarkers ([facility] Phospho-tau) from 01/2020 A-Beta 42: 573 T-Tau: [...] on the date of service which included fztu-zt-acvo patient care and counseling and educating the patient/spouse. Laisha Lizarraga, MSN, SALES AND LEASING CONSULTANT-C, CNRN CC: 1. No primary care provider on file., (fax) None documented in this [facility]10-30-2023 Nurse Note* Lisbeth Rob - 06/16/2023 1:42 [...] Unknown) BMI 21.41 kg/m documented in this [facility]10-06-2023 Miscellaneous Notes* Telephone Encounter - Romero Ojeda PA-C - 05/23/2023 4:04 PM EDT The following approved medication requests have been transmitted electronically. Requested Prescriptions Signed Prescriptions Disp Refills donepezil (ARICEPT) 5 mg tablet 90 tablet 1 Sig: Take 1 tablet by mouth daily with breakfast. Authorizing Provider: LAISHA LIZARRAGA Ordering User: ROMERO OJEDA PA-C documented in this [facility]08-22-2023 Miscellaneous Notes* Telephone Encounter - Laisha Lizarraga APRN.CNP - 04/08/2023 4:32 PM EDT The following approved medication requests have been transmitted electronically. Requested Prescriptions Signed Prescriptions Disp Refills donepezil (ARICEPT) 5 mg tablet 90 tablet 1 Sig: Take 1 tablet by mouth daily with breakfast. Laisha Lizarraga APRN.CNP documented in this encounterPromedica Defiance [facility] Hospital08-16-2023 Evaluation note* Diagnosis Onset Date Resolution Status Pain of left lower extremity acute Bronchiectasis acute Hypoxemia acute ERIS (obstructive sleep apnea) chronic Breast lump on left side at 1 o'clock position acute Left knee pain acute Restless leg syndrome chroni c Atherosclerotic heart diseas e of [place] coronary artery without angina pectoris acute Essential hypertension acute Lightheadedness acute Hyperlipidemia chronic Mass of upper inner quadrant of left breast acute Contusion of thoracic wall a cute Lumbar contusion acute Atherosclerotic heart diseas e of [place] coronary artery without angina pectoris acute Cancer acute Essential hypertension acute Hyperlipidemia acute Hypothyroidism acute Mass of upper inner quadrant of left breast acute Presence of stent in coronary artery acute Right inguinal hernia acute Vitamin B 12 deficiency acut e Gastroesophageal reflux disease chronic ERIS (obstructive sleep apnea) chronic Restless leg syndrome chroni c Sternal deformity acute Bee sting acute [facility] Work Phone: 1(800) 452-717307-18-2023 Evaluation note* Diagnosis Onset Date Resolution Status Pain of left lower extremity acute Bronchiectasis acute Hypoxemia acute ERIS (obstructive sleep apnea) chronic Breast lump on left side at 1 o'clock position acute Left knee pain acute Restless leg syndrome chroni c Atherosclerotic heart diseas e of [place] coronary artery without angina pectoris acute Essential hypertension acute Lightheadedness acute Hyperlipidemia chronic Mass of upper inner quadrant of left breast acute Contusion of thoracic wall a cute Lumbar contusion acute Atherosclerotic heart diseas e of [place] coronary artery without angina pectoris acute Cancer acute Essential hypertension acute Hyperlipidemia acute Hypothyroidism acute Mass of upper inner quadrant of left breast acute Presence of stent in coronary artery acute Right inguinal hernia acute Vitamin B 12 deficiency acut e Gastroesophageal reflux disease chronic ERIS (obstructive sleep apnea) chronic Restless leg syndrome chroni c Sternal deformity acute [facility] Work Phone: 1(876) 727-914906-28-2023 Discharge summary Author Jerri Boyd [facility] February 12, 2023 1:48pm Note Date/Time February 12, 2023 1:48 pm [facility] Occupational Therapy [facility] [address] [place] [address] / REHABILITATION SERVICES DISCHARGE SUMMARY MR#: [id number] Acct: [id number] Name: LAUREN ALCARAZ Rep #: [id number] : 1940 82 From: Jerri MACARIO/MYLA Valle [...] Improvement % Improvement: 15 Objective Objective/Function: right education adviser strength 45# left 30# left lateral pinch 4# and tripod pinch 6# pt has not made gains in left education adviser strength and at this time is d/c. with HEP. pt has hx of left intra-articular fx of left distal radius as well as left thumbinstability this may be limiting pts strength as her education adviser strength is same from 2021 - pt [...] please fell free to call me at [phone]. Thank you for the referral of this patient. Sincerely, RENALDO Encarnacion/SHILOH ValleT <Electronically signed by Jerri MACARIO/MYLA Valle> 02/12/23 1348 CC: Dr. Chema Perry MD ~ MK Signed [facility] Work Phone: 1(585) 982-376006-06-2023 Discharge summary Author Gunnar Graves [facility] January 21, 2023 2:08pm Note Date/Time January 21, 2023 2:08p m [facility] Physical Therapy [facility] [address] [facility] [place] [address] / REHABILITATION SERVICES DISCHARGE SUMMARY MR#: [id number] Acct: [id number] Name: LAUREN ALCARAZ Rep #: [id number] : 1940 82 From: Gunnar Graves PT, ATC Referring Dr.: Dr. Chema Perry MD Status: REG RCR Insurance: MEDICARE PART A B [place] [id number] It has been my pleasure to treat [...] please feel free to call me at [phone]. Thank you for the referral of thispatient. Sincerely, Gunnar Graves PT, ATC Balance/Gait/Functional tests - Balance/Special Test Scores Lower Extremity Functional Score: 19 <Electronically signed by Gunnar Graves PT ATC> 01/21/23 1408 CC: Dr. Chema Perry MD; Dr. Arun Ramos MD ~ [facility] Signed [facility] Work Phone: 1(657) 636-167804-19-2023 History of Present illness Narrative* Dina Jerry, [...] 04, 2022 2:15 PM documented in this encounterPromedica Defiance [facility] Hospital03-29-2023 Instructions* Patient Instructions* Laisha Lizarraga APRN.CNP [...] last scan in 2019 - can call [phone] or schedule at the [facility] desk 4. Please ambulate with caution! Follow up in about 3 months to recheck on things or sooner if tests are done earlier documented in this encounterPromedica Defiance [facility]03-29-2023 Nurse Note* Lisbeth Rob - 11/13/2022 [...] Unknown) BMI 22.22 kg/m documented in this encounterPromedica Defiance [facility] Hospital03-29-2023 History of Present illness Narrative* Laisha Lizarraga APRN.EMERGENCY MEDICAL TECH - 11/13/2022 7:56 AM EDT Lauren Alcaraz 1940 [address] [place] [address] November 13, 2022 [facility] [...] 6 hrs/day Today, Lauren and her spouse Derloy return for a routine follow up visit. She feels that her walking has been much better-- has been doing PT in the interim then transferredto a green jobs trainer, and is not using a wheelchair today. She is using a Rollator today. Her goal is to walk unassisted. She has also been going to Cognitive/Speech therapy and feels it may be helping- someone down in the [place] area linked w/ her other therapies She [...] resources to help care for yourself? No rn quality Has your caregiver accompanied you today? Yes [...] from 2007 DATE: June 15, 2008 NO: [id number] Indication: Question of seizure Medications: None given [...] last scan in 2019 - can call [phone] or schedule at the [facility] desk 4. Please ambulate with caution! Follow up in about 3 months to recheck on things or sooner if tests are done earlier I spent a total of 40 minutes on the date of service which included ship-po-gicv patient care and counseling and educating the patient/spouse. Laisha Lizarraga, MSN, SALES AND LEASING CONSULTANT-C, CNRN CC: 1. Chema Perry MD, (fax) [phone] documented in this encounterPromedica Defiance [facility]03-01-[address] Keith [facility] October 16, 2022 8:20pm Note Date/Time October 16, 2022 6:53 pm [facility] Medical Records Department [address] [place] [address] Emergency Department Summary 10/16/22 MR#: [id number] Acct: [id number] Name: LAUREN ALCARAZ Rep #: [id number] : 1940 82 From: Cal Keith MD PCP: Dr. Chema Perry MD Status:REG ER Location: ED HPI History of Present Illness Chief Complaint: Upper Extremity Injury Narrative Narrative: 82-year-old female, essentially hpfth-szyj-lfmcdncy, presents with pain and swelling of her [...] with movement. It is relieved by nothing. [facility] Medical History aquired autoimmune encephalopathy Arthritis Asthma Atherosclerotic heart disease of [place] coronary artery without angina pectoris Back pain [...] mg/mL subcutaneous syringe (Prolia) 60 mg subcut [id number] 06/07/22 [History Last Taken Unknown] famotidine 10 [...] Prolia 60 mg/mL syringe 60 mg subcut [id number] d-mannose 500 mg capsule 500 mg PO [...] As soon as possible Shiraz Blanchard DO [[facility] Staff - Active Staff] - 1 Day Disposition Disposition: Home, Self Care What to do if you have Problems For any increased pain, shortness of breath, bleeding, nausea or vomiting, chestpain, or any unexpected problems, contact your Primary Care Provider. Call [facility] ([phone]) or report to the closest Emergency Room. Call 911 if necessary. 10/16/222019 <Electronically signed by Cal Keith MD> Cosigner Signature (if applicable): CC: Dr. Ernesto Logan DO; Dr. Chema Perry MD; Dr. Shiraz Blanchard DO ~ Signed [facility] Work Phone: 1(265) 694-987512-29-2022 Discharge summary Author Gunnar Hartzler [facility] August 15, 2022 12:04pm Note Date/Time August 15, 2022 12:04pm [facility] Physical Therapy [facility] [address] [place] [address] / REHABILITATION SERVICES DISCHARGE SUMMARY MR#: [id number] Acct: [id number] Name: LAUREN ALCARAZ Rep #: [id number] : 1940 81 From: Gunnar Graves PT, ATC Referring Dr.: Dr. Arun Ramos MD Status: REG RCR Insurance: MEDICARE PART A B [place] [id number] It has been my pleasure to treat [...] please feel free to call me at [phone]. Thank you for the referral of thispatient. Sincerely, Gunnar Graves, PT, ATC Balance/Gait/Functional tests - Balance/Special Test Scores Lower Extremity Functional Score: 41 <Electronically signed by Gunnar Graves PT, ATC> 08/15/22 1207 CC: Dr. Chema Perry MD; Dr. Arun Ramos MD ~ [facility] Signed [facility] Work Phone: 1(114) 975-673608-25-2022 Instructions* Patient Instructions* Laisha Lizarraga APRN.CNP - 04/11/2022 1:39 PM EDT Let's consider having you try some Cognitive Therapy (cognitive-linguistic speech therapy) sessionsthat may help with some of the cognitive issues that you're still dealing with- may help with word-finding, mental calculation, and other things. The main scheduling number is [phone] and some of the therapists are below: Jeny Leonard, ACCOUNTS RECEIVABLE ASSOCIATE at [facility] - call [phone] Sydni Johnson, ACCOUNTS RECEIVABLE ASSOCIATE -- [facility], Desk C22 (appt [phone]) Kinza Handley, ACCOUNTS RECEIVABLE ASSOCIATE at [facility] ([phone]) Kenneth Reinoso) Tierra at [facility] ([phone]) Sandra Goode at [facility] ([phone]) Ale Lopez, ACCOUNTS RECEIVABLE ASSOCIATE at [facility] ([phone]) Emily Ruvalcaba, ACCOUNTS RECEIVABLE ASSOCIATE at [facility] ([phone] ph; [phone] fax) Sydni Moreno, ACCOUNTS RECEIVABLE ASSOCIATE -- [facility] [place] ([phone]) Chata Patel, ACCOUNTS RECEIVABLE ASSOCIATE -- [facility] ([phone]) 2. I'd hold off on starting a medication like donepezil (Aricept) - I don't think this stands to help much 3 . try to keep the back pain under control however they recommend 4. Continue the cranberry supplement and watch for UTIs Follow up in about 6 months to recheck on things documented in this encounterProm[facility] History of Present illness Narrative* Laisha Lizarraga APRN.CNP - 04/11/2022 1:00 PM EDT Lauren Alcaraz 1940 [address] [facility] [address] April 11, 2022 [facility] FOLLOW-UP NOTE Accompanied by: [...] since November- was previously staying at [facility] -- some gait-freezing noted from the in-home PT therapists No changes in plan of care were made at last visit Today, Lauren and her spouse Delroy return for a follow up visit She actually did have a fall at the end of February - they were going to see the opera in [place] and she got out of the car [...] from 2007 DATE: June 15, 2008 NO: [id number] Indication: Question of seizure Medications: None given [...] other things. The main scheduling number is [phone] and some of the therapists are below: Jeny Loenard, ACCOUNTS RECEIVABLE ASSOCIATE at [facility] - call [phone] Sydni Johnson, ACCOUNTS RECEIVABLE ASSOCIATE -- [facility], Desk C22 (appt [phone]) Kinza Handley, ACCOUNTS RECEIVABLE ASSOCIATE at [facility] ([phone]) Kenneth Mayorga (Tricia) at [facility] ([phone]) Sandra Goode at [facility] ([phone]) Ale Lopez, ACCOUNTS RECEIVABLE ASSOCIATE at [facility] ([phone]) Emily Ruvalcaba, ACCOUNTS RECEIVABLE ASSOCIATE at [facility] ([phone] ph; [phone] fax) Sydni Moreno, ACCOUNTS RECEIVABLE ASSOCIATE -- [facility] [place] ([phone]) Chata Patel, ACCOUNTS RECEIVABLE ASSOCIATE -- [facility] ([phone]) 2. I'd hold off on starting a [...] on the date of service which included [id number] patient care and counseling and educating the patient/spouse. Laisha Lizarraga, OSORIO, SALES AND LEASING CONSULTANT-C, CNRN documented in this encounterPromedica [facility]08-25-[facility]22 Nurse Note* Layne Leon LPN - [...] Unknown) BMI 23.63 kg/m documented in this encounterPromedica [facility]06-08-2022 Instructions* Patient Instructions* Laisha Lizarraga APRN.CNP [...] to recheck on things documented in this encounterPromedica [facility]06-08-2022 History of Present illness Narrative* Mitchel Msue MD - 01/23/2022 11:13 AM EDT Lauren Alcaraz 1940 [address] [facility] [address] January 23, 2022 [facility] FOLLOW-UP NOTE Accompanied by: [...] She had spent some time at [facility] and some of her medications were discontinued by her [employer] [place]. Ramos. Today, Lauren and her spouse Delroy return for a routine follow up visit. She has been back home since mid-November - was previously staying at [facility]. Delroy reports that the Physical Therapists have [...] Never Social History reviewed by Laisha Lizarraga APRN.EMERGENCY MEDICAL TECH PATIENT-ENTERED DATA Patient-Reported 01/17/2022 11/07/2021 Where are you currently living? Home / Private residence residential / FPC facility Are you using any community resources [...] from 2007 DATE: June 15, 2008 NO: [id number] Indication: Question of seizure Medications: None given [...] on the date of service which included [id number] patient care and counseling and educating the patient/spouse. Dr. Muse was present for this visit and is in agreement with the plan stated above. He did perform the neurological exam. Laisha Lizarraga, MSN, SALES AND LEASING CONSULTANT-C, CNRN History, previous evaluations and examination reviewed [...] which included preparing to see the patient, [id number] patient care, completing clinical documentation, obtaining and/or reviewing separately obtained history, performing a medically appropriate examination, counseling and educating the pat ient/family/caregiver and ordering medications, tests, or procedures. documented in this [facility]06-08-2022 Nurse Note* Layne Leon LPN - 01/23/2022 [...] Unknown) BMI 24.04 kg/m documented in this [facility]03-29-2022 Instructions* Patient Instructions* Laisha Lizarraga APRN.CNP - [...] Dr. Muse in January documented in this [facility]03-29-2022 History of Present illness Narrative* Laisha Lizarraga APRN.CNP - 11/13/2021 11:30 AM EDT Lauren Alcaraz 1940 [address] [facility] [address] November 13, 2021 [facility] FOLLOW-UP NOTE Accompanied by: [...] hospitalized and transferred to transitional care in [place] where she contracted Covid-19, she remained at that care facility for approximately one month.. Upon leaving transitional care, pt was returned to hospital d/t spouses inability to care at the level required, pt transferred [facility] [place] where she currently has been since. Pt [...] 11/07/2021 10/04/2021 Where are you currently living? residential / [facility]PC facility Home / Private residence Are you using any community resources to help care for yourself? No rn quality Has your caregiver accompanied you today? Yes [...] Normocephalic/atraumatic. Neurological Exam: Cognition: alert and cooperative [place] Cognitive Assessment (MoCA) Version 1 Total Score: [...] from 2007 DATE: June 15, 2008 NO: [id number] Indication: Question of seizure Medications: None given [...] on the date of service which included [id number] patient care and counseling and educating the patient/spouse. This note was generated with the assistance of Isma Torres, EMERGENCY MEDICAL TECH Student. I was present for the entirety of the visit and participated in the interview and formulation of plan. Laisha Lizarraga, MSN, SALES AND LEASING CONSULTANT-C, CNRN documented in this encounterPromedica Defiance [facility] Hospital03-29-2022 Nurse Note* Layne Leon LPN - [...] Unknown) BMI 25.04 kg/m documented in this encounterPromedica Defiance Regional HospitalChief complaint+Reason for visit Narrative* Chief Complaint ELBOW 4 M FU COVID EXPOSURE/WANTS TEST COVID-19 INT LABS LEFT KNEE PAIN XRAY LLE PAIN STAT 6 M FU knee Pain 6 m fu LEFT BREAST MASS LUMP IN L BREAST XRAY POST FALL/BACK PAIN/SWELLING XRAY CONGITIVE COMM,BALANCE,WEAKNESS RX HERE 6 M FU Reason for Visit Atherosclerotic hear t disease of [place] coronary artery without angina pectoris Debility Essential [...] Restless leg syndrome Atherosclerotic heart disease of [place] coronary artery without angina pectoris Essential hypertension Lightheadedness Hyperlipidemia Mass of upper inner quadrant of left breast Contusion of thoracic wall Lumbar contusion Atherosclerotic heart disease of [place] coronary artery without angina pectoris Cancer Essential hypertension Hyperlipidemia Hypothyroidism Mass of upper inner quadrant of left breast Presence of stent in coronary artery Right inguinal hernia Vitamin B 12 deficiency Gastroesophageal reflux disease ERIS (obstructive sleep apnea) Restless leg syndrome [facility] Work Phone: Chief complaint+Reason for visit [...] for Visit Atherosclerotic hear t disease of [place] coronary artery without angina pectoris Debility Essential [...] Restless leg syndrome Atherosclerotic heart disease of [place] coronary artery without angina pectoris Essential hypertension Lightheadedness Hyperlipidemia Mass of upper inner quadrant of left breast Contusion of thoracic wall Lumbar contusion Atherosclerotic heart disease of [place] coronary artery without angina pectoris Cancer Essential hypertension Hyperlipidemia Hypothyroidism Mass of upper inner quadrant of left breast Presence of stent in coronary artery Right inguinal hernia Vitamin B 12 deficiency Gastroesophageal reflux disease ERIS (obstructive sleep apnea) Restless leg syndrome [facility] Work Phone: Chief complaint+Reason for visit [...] Restless leg syndrome Atherosclerotic heart disease of [place] coronary artery without angina pectoris Essential hypertension Lightheadedness Hyperlipidemia Mass of upper inner quadrant of left breast Contusion of thoracic wall Lumbar contusion Atherosclerotic heart disease of [place] coronary artery without angina pectoris Cancer Essential hypertension Hyperlipidemia Hypothyroidism Mass of upper inner quadrant of left breast Presence of stent in coronary artery Right inguinal hernia Vitamin B 12 deficiency Gastroesophageal reflux disease ERIS (obstructive sleep apnea) Restless leg syndrome Sternal deformity [facility] Work Phone: Discharge summary Author Isma Bustamante [facility] Note Date/Time February 03, 2025 7:58 am [facility] Medical Records Department [address] [place] [address] Emergency Department Summary 02/03/25 MR#: [id number] Acct: [id number] Name: LAUREN ALCARAZ Rep #: [id number] : 1940 84 From: Isma Bustamante DO [...] in for evaluation. She denies any otherinjury [facility] Medical History (Updated 02/03/25 @ 07:58 by [...] coronary artery (~1989) Atherosclerotic heart disease of [place] coronary artery without angina pectoris Essential hypertension [...] denosumab 60 mg/mL subcutaneous 60 mg subcut [id number] #1 mL 01/24/25 Unknown Rx syringe (Prolia) [...] Other Verified 02/03/25 04:07 [place]) Family History (Reviewed 10/22/24 @ 14:32 by Sandra Vincent SALES AND LEASING CONSULTANT, SALES AND LEASING CONSULTANT-C) Mother CVA (cerebral vascular accident) Arthritis Father [...] changes of the humeral head. Reading Location: [place] [address] X-ray of the right shoulder as interpreted by the emergency medicine physician reveals a fracture to the distal aspect of the right clavicle with cranial displacement. 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 Instructions: ED Fracture, Clavicle Prescriptions: New [...] .MEDSUPPLY Rx Instructions: Bd SYR/leticia Eclipse 3ml #5778 BD Sry/needle eclips See Rx Instructions IM .COMPLEX Qty: 12 0RF Rx Instructions: intramuscularly; 3ml #3547 uses 1 a month (DME) PEP device [...] 0RF Rx Instructions: Can be administered at [facility] [place] Prolia 60 mg/mL syringe 60 mg subcut [id number] Qty: 1 5RF Primary Care Provider: Chema [...] you have any further concerns Print Language: Icelandic Disposition Disposition: Home, Self Care What to do if you have Problems For any increased pain, shortness of breath, bleeding, nausea or vomiting, chestpain, or any unexpected problems, contact your Primary Care Provider. Call [facility] ([phone]) or report to the closest Emergency Room. Call 911 if necessary. 02/03/25 0758 <Electronically signed by Isma Bustamante DO> Cosigner Signature (if applicable): CC: Dr. Chema Perry MD ~ Signed [facility] Work Phone: Evaluation note* Diagnosis Dementia without behavioral disturbance, unspecified dementia type (HCC)- Primary History of complex partial epilepsy Personal history of other disorders of nervous system and sense organs Gait instability Abnormality of gait Multiple falls Personal history of fall Depression, unspecified depression type Anxiety Anxiety state, unspecified Physical deconditioning Debility, unspecified documented in this encounter [facility]* Diagnosis Onset Date Resolution Status [...] ERIS (obstructive sleep apnea) chronic COVID-19 resolved [facility] Work Phone: Evaluation note* Diagnosis Dementia without behavioral disturbance, unspecified dementia type (HCC)- Primary History of complex partial epilepsy Personal history of other disorders of nervous system and sense organs Gait instability Abnormality of gait Multiple falls Personal history of fall Depression, unspecified depression type Anxiety Anxiety state, unspecified Physical deconditioning Debility, unspecified documented in this encounter [facility]* Diagnosis Onset Date Resolution Status Bronchiectasis acute Hiatal hernia acute ERIS (obstructive sleep apnea) chronic COVID-19 resolved Bronchiectasis acute Shortness of breath on exertion acute COVID-19 resolved [facility] Work Phone: Evaluation note* Diagnosis Onset Date Resolution Status Bronchiectasis acute Shortness of breath on exertion acute COVID-19 resolved [facility] Work Phone: Evaluation note* Diagnosis Dementia without behavioral disturbance, unspecified dementia type ([facility])- Primary History of complex partial epilepsy Personal history of other disorders of nervous system and sense organs Gait instability Abnormality of gait Multiple falls Personal history of fall Physical deconditioning Debility, unspecified Cognitive communication deficit documented in this encounter [facility]* Diagnosis Onset Date Resolution Status Debility acute Falls frequently acute Hyperlipidemia acute Hypothyroidism acute Overactive bladder acute Gastroesophageal reflux disease chronic ERIS (obstructive sleep apnea) chronic Seizure disorder chronic Encounter to establish care noneactive Bronchiectasis acute Hypoxemia acute ERIS (obstructive sleep apnea) chronic Intermittent constipation ac [place] Leg edema, left acute Varicose veins of both legs with edema acute Debility acute Lightheadedness acute Overactive bladder acute Atherosclerotic heart diseas e of [place] coronary artery without angina pectoris acute Essential hypertension acute Presence of stent in coronary artery acute Hyperlipidemia chronic Bronchiectasis acute Hypoxemia acute Abdominal wall hernia acute Essential hypertension acute Restless leg syndrome chroni c Seizure disorder chronic Acute bronchitis acute [facility] Work Phone: Evaluation note* Diagnosis Onset Date Resolution Status Bronchiectasis acute Hypoxemia acute ERIS (obstructive sleep apnea) chronic Intermittent constipation ac [place] Leg edema, left acute Varicose veins of both legs with edema acute Debility acute Lightheadedness acute Overactive bladder acute Atherosclerotic heart diseas e of [place] coronary artery without angina pectoris acute Essential hypertension acute Presence of stent in coronary artery acute Hyperlipidemia chronic Bronchiectasis acute Hypoxemia acute Abdominal wall hernia acute Essential hypertension acute Restless leg syndrome chroni c Seizure disorder chronic Acute bronchitis acute [facility] Work Phone: Evaluation note* Diagnosis Onset Date Resolution Status Intermittent constipation ac [place] Leg edema, left acute Varicose veins of both legs with edema acute Debility acute Lightheadedness acute Overactive bladder acute Atherosclerotic heart diseas e of [place] coronary artery without angina pectoris acute Essential hypertension acute Presence of stent in coronary artery acute Hyperlipidemia chronic Bronchiectasis acute Hypoxemia acute Abdominal wall hernia acute Essential hypertension acute Restless leg syndrome chroni c Seizure disorder chronic Acute bronchitis acute Right inguinal hernia acute Fall (on)(from) incline, subsequent encounter acute Visit for suture removal acu [facility] Work Phone: Evaluation note* Diagnosis Onset Date Resolution Status Atherosclerotic heart diseas e of [place] coronary artery without angina pectoris acute Essential hypertension acute Presence of stent in coronary artery acute Hyperlipidemia chronic Bronchiectasis acute Hypoxemia acute Abdominal wall hernia acute Essential hypertension acute Restless leg syndrome chroni c Seizure disorder chronic Acute bronchitis acute Right inguinal hernia acute Fall (on)(from) incline, subsequent encounter acute Visit for suture removal acu [facility] Work Phone: Evaluation note* Diagnosis Onset Date Resolution Status Atherosclerotic heart diseas e of [place] coronary artery without angina pectoris acute Essential [...] Left elbow contusion acute Scalp contusion acute [facility] Work Phone: Evaluation note* Diagnosis Onset [...] Left elbow contusion acute Scalp contusion acute [facility] Work Phone: Evaluation note* Diagnosis Dementia [...] Abnormality of gait documented in this encounter [facility]* Diagnosis Onset Date Resolution Status Contusion of left shoulder a cute Contusion of left wrist acut e Left elbow contusion acute Scalp contusion acute Atherosclerotic heart diseas e of [place] coronary artery without angina pectoris acute Debility acute Essential hypertension acute Falls frequently acute Hyperlipidemia acute Hypothyroidism acute Lightheadedness acute Overactive bladder acute Seizure disorder acute Vascular dementia acute Vitamin B 12 deficiency acut e Vitamin D deficiency resolve d Contact with and (suspected) exposure to other viral communicable diseases acute [facility] Work Phone: Evaluation note* Diagnosis Onset Date Resolution Status Contusion of left shoulder a cute Contusion of left wrist acut e Left elbow contusion acute Scalp contusion acute Atherosclerotic heart diseas e of [place] coronary artery without angina pectoris acute Debility [...] chroni c Atherosclerotic heart diseas e of [place] coronary artery without angina pectoris acute Essential hypertension acute Lightheadedness acute Hyperlipidemia chronic Mass of upper inner quadrant of left breast acute [facility] Work Phone: Evaluation note* Diagnosis Onset Date Resolution Status Atherosclerotic heart diseas e of [place] coronary artery without angina pectoris acute Debility [...] chroni c Atherosclerotic heart diseas e of [place] coronary artery without angina pectoris acute Essential hypertension acute Lightheadedness acute Hyperlipidemia chronic Mass of upper inner quadrant of left breast acute Contusion of thoracic wall a cute Lumbar contusion acute Atherosclerotic heart diseas e of [place] coronary artery without angina pectoris acute Cancer acute Essential hypertension acute Hyperlipidemia acute Hypothyroidism acute Mass of upper inner quadrant of left breast acute Presence of stent in coronary artery acute Right inguinal hernia acute Vitamin B 12 deficiency acut e Gastroesophageal reflux disease chronic ERIS (obstructive sleep apnea) chronic Restless leg syndrome chroni c [facility] Work Phone: Evaluation note* Diagnosis 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, psychotic disturbance, mood disturbance, or anxiety (HCC) documented in this encounter [facility]* Diagnosis Onset Date Resolution Status Atherosclerotic heart diseas e of [place] coronary artery without angina pectoris acute Essential hypertension acute Lightheadedness acute Hyperlipidemia chronic Mass of upper inner quadrant of left breast acute Contusion of thoracic wall a cute Lumbar contusion acute Atherosclerotic heart diseas e of [place] coronary artery without angina pectoris acute Cancer [...] Bee sting acute Bronchiectasis acute Hypoxemia chronic [facility] Work Phone: Evaluation note* Diagnosis Onset Date Resolution Status Sternal deformity acute Bee sting acute Bronchiectasis acute Hypoxemia chronic Atherosclerotic heart diseas e of [place] coronary artery without angina pectoris acute ALEXANDER (dyspnea on exertion) ac [place] Hyperlipidemia [facility] Work Phone: Evaluation note* Diagnosis Mild [...] influencing health status documented in this encounter [facility] Diagnosis Onset Date Resolution Status Bee sting acute Bronchiectasis acute Hypoxemia chronic Atherosclerotic heart diseas e of [place] coronary artery without angina pectoris acute ALEXANDER (dyspnea on exertion) ac [place] Hyperlipidemia chronic [facility] Work Phone: Evaluation note* Diagnosis 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, psychotic disturbance, mood disturbance, or anxiety (HCC)- Primary History of complex partial epilepsy Personal history of other disorders of nervous system and sense organs Physical deconditioning Debility, unspecified Gait instability Abnormality of gait Fine motor impairment Other specified conditions influencing health status [facility] encounter [facility] [place] [facility]* Diagnosis Onset Date Resolution Status Atherosclerotic heart diseas e of [place] coronary artery without angina pectoris acute Debility acute Essential hypertension acute Falls frequently acute Hiatal hernia acute Hyperlipidemia acute Restless leg syndrome acute Right inguinal hernia acute Vascular dementia acute Difficulty swallowing chroni c Hiatal hernia acute Mass of upper inner quadrant of left breast acute Sternal deformity acute Osteoporosis chronic Bronchiectasis acute Hypoxemia [facility] Work Phone: Evaluation note* Diagnosis Primary open angle glaucoma (POAG) of both eyes, severe stage- Primary documented in this encounter [facility] [place] [facility]* Diagnosis Onset Date Resolution Status Atherosclerotic heart diseas e of [place] coronary artery without angina pectoris acute Debility acute Essential hypertension acute Falls frequently acute Hiatal hernia acute Hyperlipidemia acute Restless leg syndrome acute Right inguinal hernia acute Vascular dementia acute Difficulty swallowing chroni c Hiatal hernia acute Mass of upper inner quadrant of left breast acute Sternal deformity acute Osteoporosis chronic Bronchiectasis acute Hypoxemia chronic Atherosclerotic heart diseas e of [place] coronary artery without angina pectoris acute Dizziness acute Hyperlipidemia [facility] Work Phone: Evaluation note* Diagnosis Onset Date Resolution Status Hiatal hernia acute Mass of upper inner quadrant of left breast acute Sternal deformity acute Osteoporosis chronic Bronchiectasis acute Hypoxemia chronic Atherosclerotic heart diseas e of [place] coronary artery without angina pectoris acute Dizziness acute Hyperlipidemia [facility] Work Phone: Evaluation note* Diagnosis 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, psychotic disturbance, mood disturbance, or anxiety (HCC) [facility] [place] [facility] Diagnosis 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, psychotic disturbance, mood disturbance, or anxiety (HCC) [facility] [place] [facility]* Diagnosis 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, psychotic disturbance, mood disturbance, or anxiety (HCC)- Primary Physical deconditioning Debility, unspecified Gait instability Abnormality of gait Fine motor impairment Other specified conditions influencing health status Dizziness Dizziness and giddiness Depression, unspecified depression type 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) (postural) [facility] [place] [facility]* Diagnosis Primary open angle glaucoma (POAG) of both eyes, severe stage [facility] [place] [facility]* Diagnosis 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) Dementia, unspecified, without behavioral disturbance [facility] [place] [facility]* Diagnosis Hiatal hernia- Primary Diaphragmatic hernia without mention of obstruction or gangrene Gastroesophageal reflux disease, unspecified whether esophagitis present [facility] [place] [facility]* Diagnosis H/O acute myocardial infarction- Primary Old myocardial infarction Cardiomyopathy, unspecified type (HCC) Pre-op evaluation Preoperative examination, unspecified Encounter to establish care Other reasons for seeking consultation [facility] Diagnosis Hiatal hernia- Primary Diaphragmatic hernia without mention of obstruction or gangrene [facility] [place] [facility]* Diagnosis Hiatal hernia Diaphragmatic hernia without mention of obstruction or gangrene documented in this encounter [facility] note* Diagnosis Mild mixed vascular and [...] of both feet [facility] [place] [facility]* Diagnosis Pre-operative examination- Primary Preoperative examination, unspecified 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) Dementia, unspecified, without behavioral disturbance MS (multiple sclerosis) (HCC) Multiple sclerosis History of complex partial epilepsy Personal history of other disorders of nervous system and sense organs Restless legs syndrome Restless legs syndrome (RLS) Atherosclerosis of [place] coronary artery of [place] heart with angina pectoris (HCC) Essential hypertension [...] following [facility], last OV 11/12/2023 scanned into [facility]. Stress test 05/2023 negative for ischemia. Pt [...] AD biomarkers negative documented in this encounter [facility] note* Diagnosis Pre-operative examination- Primary Preoperative examination, unspecified 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) Dementia, unspecified, without behavioral disturbance MS (multiple sclerosis) (HCC) Multiple sclerosis History of complex partial epilepsy Personal history of other disorders of nervous system and sense organs Restless legs syndrome Restless legs syndrome (RLS) Atherosclerosis of [place] coronary artery of [place] heart with angina pectoris (HCC) Essential hypertension [...] obstruction or gangrene documented in this encounter [facility] note* Diagnosis Pre-operative examination- Primary Preoperative examination, unspecified 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) Dementia, unspecified, without behavioral disturbance MS (multiple sclerosis) (HCC) Multiple sclerosis History of complex partial epilepsy Personal history of other disorders of nervous system and sense organs Restless legs syndrome Restless legs syndrome (RLS) Atherosclerosis of [place] coronary artery of [place] heart with angina pectoris (HCC) Essential hypertension [...] eyes, severe stage [facility] [place] [facility]* Diagnosis Pre-operative examination- Primary Preoperative examination, unspecified 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) Dementia, unspecified, without behavioral disturbance MS (multiple sclerosis) (HCC) Multiple sclerosis History of complex partial epilepsy Personal history of other disorders of nervous system and sense organs Restless legs syndrome Restless legs syndrome (RLS) Atherosclerosis of [place] coronary artery of [place] heart with angina pectoris (HCC) Essential hypertension [...] unspecified type (HCC) documented in this encounter [facility] note* Diagnosis Pre-operative examination- Primary Preoperative examination, unspecified 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) Dementia, unspecified, without behavioral disturbance MS (multiple sclerosis) (HCC) Multiple sclerosis History of complex partial epilepsy Personal history of other disorders of nervous system and sense organs Restless legs syndrome Restless legs syndrome (RLS) Atherosclerosis of [place] coronary artery of [place] heart with angina pectoris (HCC) Essential hypertension [...] chronicity, unspecified whether acute cor pulmonale present ([facility]) Neuropathy- Primary Mononeuritis of unspecified site Paresthesia of both feet Frequent falls Personal history of fall documented in this encounter [facility] note* Diagnosis Pre-operative examination- Primary Preoperative examination, unspecified 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) Dementia, unspecified, without behavioral disturbance MS (multiple sclerosis) (HCC) Multiple sclerosis History of complex partial epilepsy Personal history of other disorders of nervous system and sense organs Restless legs syndrome Restless legs syndrome (RLS) Atherosclerosis of [place] coronary artery of [place] heart with angina pectoris (HCC) Essential hypertension [...] Preoperative examination, unspecified documented in this encounter [facility] note* Diagnosis Pre-operative examination- Primary Preoperative examination, unspecified 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) Dementia, unspecified, without behavioral disturbance MS (multiple sclerosis) (HCC) Multiple sclerosis History of complex partial epilepsy Personal history of other disorders of nervous system and sense organs Restless legs syndrome Restless legs syndrome (RLS) Atherosclerosis of [place] coronary artery of [place] heart with angina pectoris (HCC) Essential hypertension [...] Preoperative examination, unspecified documented in this encounter [facility] note* Diagnosis Pre-operative examination- Primary Preoperative examination, unspecified 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) Dementia, unspecified, without behavioral disturbance MS (multiple sclerosis) (HCC) Multiple sclerosis History of complex partial epilepsy Personal history of other disorders of nervous system and sense organs Restless legs syndrome Restless legs syndrome (RLS) Atherosclerosis of [place] coronary artery of [place] heart with angina pectoris (HCC) Essential hypertension [...] Preoperative examination, unspecified [facility] Diagnosis Pre-operative examination- Primary Preoperative examination, unspecified 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) Dementia, unspecified, without behavioral disturbance MS (multiple sclerosis) (HCC) Multiple sclerosis History of complex partial epilepsy Personal history of other disorders of nervous system and sense organs Restless legs syndrome Restless legs syndrome (RLS) Atherosclerosis of [place] coronary artery of [place] heart with angina pectoris (HCC) Essential hypertension [...] Preoperative examination, unspecified documented in this encounter [facility] note* Diagnosis Pre-operative examination- Primary Preoperative examination, unspecified 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) Dementia, unspecified, without behavioral disturbance MS (multiple sclerosis) (HCC) Multiple sclerosis History of complex partial epilepsy Personal history of other disorders of nervous system and sense organs Restless legs syndrome Restless legs syndrome (RLS) Atherosclerosis of [place] coronary artery of [place] heart with angina pectoris (HCC) Essential hypertension [...] Preoperative examination, unspecified [facility] [place] [facility]* Diagnosis Pre-operative examination- Primary Preoperative examination, unspecified 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) Dementia, unspecified, without behavioral disturbance MS (multiple sclerosis) (HCC) Multiple sclerosis History of complex partial epilepsy Personal history of other disorders of nervous system and sense organs Restless legs syndrome Restless legs syndrome (RLS) Atherosclerosis of [place] coronary artery of [place] heart with angina pectoris (HCC) Essential hypertension [...] Preoperative examination, unspecified [facility] Diagnosis Pre-operative examination- Primary Preoperative examination, unspecified 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) Dementia, unspecified, without behavioral disturbance MS (multiple sclerosis) (HCC) Multiple sclerosis History of complex partial epilepsy Personal history of other disorders of nervous system and sense organs Restless legs syndrome Restless legs syndrome (RLS) Atherosclerosis of [place] coronary artery of [place] heart with angina pectoris (HCC) Essential hypertension [...] Preoperative examination, unspecified [facility] [place] [facility]* Diagnosis Pre-operative examination- Primary Preoperative examination, unspecified 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) Dementia, unspecified, without behavioral disturbance MS (multiple sclerosis) (HCC) Multiple sclerosis History of complex partial epilepsy Personal history of other disorders of nervous system and sense organs Restless legs syndrome Restless legs syndrome (RLS) Atherosclerosis of [place] coronary artery of [place] heart with angina pectoris ([facility]) Essential hypertension Unspecified essential hypertension Mixed hyperlipidemia [...] per Dr. Marcial. [facility] Diagnosis Pre-operative examination- Primary Preoperative examination, unspecified 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) Dementia, unspecified, without behavioral disturbance MS (multiple sclerosis) (HCC) Multiple sclerosis History of complex partial epilepsy Personal history of other disorders of nervous system and sense organs Restless legs syndrome Restless legs syndrome (RLS) Atherosclerosis of [place] coronary artery of [place] heart with angina pectoris (HCC) Essential hypertension [...] chronic pain- Primary [facility] [place] [facility]* Diagnosis Pre-operative examination- Primary Preoperative examination, unspecified 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) Dementia, unspecified, without behavioral disturbance MS (multiple sclerosis) (HCC) Multiple sclerosis History of complex partial epilepsy Personal history of other disorders of nervous system and sense organs Restless legs syndrome Restless legs syndrome (RLS) Atherosclerosis of [place] coronary artery of [place] heart with angina pectoris (HCC) Essential hypertension [...] other specified site [facility] [place] [facility]* Diagnosis Pre-operative examination- Primary Preoperative examination, unspecified 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) Dementia, unspecified, without behavioral disturbance MS (multiple sclerosis) (HCC) Multiple sclerosis History of complex partial epilepsy Personal history of other disorders of nervous system and sense organs Restless legs syndrome Restless legs syndrome (RLS) Atherosclerosis of [place] coronary artery of [place] heart with angina pectoris (HCC) Essential hypertension [...] of both feet [facility] Diagnosis Pre-operative examination- Primary Preoperative examination, unspecified 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) Dementia, unspecified, without behavioral disturbance MS (multiple sclerosis) (HCC) Multiple sclerosis History of complex partial epilepsy Personal history of other disorders of nervous system and sense organs Restless legs syndrome Restless legs syndrome (RLS) Atherosclerosis of [place] coronary artery of [place] heart with angina pectoris (HCC) Essential hypertension [...] malaise and fatigue [facility] Diagnosis Pre-operative examination- Primary Preoperative examination, unspecified 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) Dementia, unspecified, without behavioral disturbance MS (multiple sclerosis) (HCC) Multiple sclerosis History of complex partial epilepsy Personal history of other disorders of nervous system and sense organs Restless legs syndrome Restless legs syndrome (RLS) Atherosclerosis of [place] coronary artery of [place] heart with angina pectoris (HCC) Essential hypertension [...] Other postprocedural status [facility] Diagnosis Pre-operative examination- Primary Preoperative examination, unspecified 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) Dementia, unspecified, without behavioral disturbance MS (multiple sclerosis) (HCC) Multiple sclerosis History of complex partial epilepsy Personal history of other disorders of nervous system and sense organs Restless legs syndrome Restless legs syndrome (RLS) Atherosclerosis of [place] coronary artery of [place] heart with angina pectoris (HCC) Essential hypertension [...] eyes, severe stage [facility] Diagnosis Pre-operative examination- Primary Preoperative examination, unspecified 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) Dementia, unspecified, without behavioral disturbance MS (multiple sclerosis) (HCC) Multiple sclerosis History of complex partial epilepsy Personal history of other disorders of nervous system and sense organs Restless legs syndrome Restless legs syndrome (RLS) Atherosclerosis of [place] coronary artery of [place] heart with angina pectoris (HCC) Essential hypertension [...] Abdominal pain, generalized [facility] Diagnosis Pre-operative examination- Primary Preoperative examination, unspecified 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) Dementia, unspecified, without behavioral disturbance MS (multiple sclerosis) (HCC) Multiple sclerosis History of complex partial epilepsy Personal history of other disorders of nervous system and sense organs Restless legs syndrome Restless legs syndrome (RLS) Atherosclerosis of [place] coronary artery of [place] heart with angina pectoris (HCC) Essential hypertension [...] of ulnar nerve [facility] Diagnosis Pre-operative examination- Primary Preoperative examination, unspecified 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) Dementia, unspecified, without behavioral disturbance MS (multiple sclerosis) (HCC) Multiple sclerosis History of complex partial epilepsy Personal history of other disorders of nervous system and sense organs Restless legs syndrome Restless legs syndrome (RLS) Atherosclerosis of [place] coronary artery of [place] heart with angina pectoris (HCC) Essential hypertension [...] malaise and fatigue [facility] Diagnosis Pre-operative examination- Primary Preoperative examination, unspecified 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) Dementia, unspecified, without behavioral disturbance MS (multiple sclerosis) (HCC) Multiple sclerosis History of complex partial epilepsy Personal history of other disorders of nervous system and sense organs Restless legs syndrome Restless legs syndrome (RLS) Atherosclerosis of [place] coronary artery of [place] heart with angina pectoris Essential hypertension Unspecified [...] Nausea Nausea alone [facility] Diagnosis Pre-operative examination- Primary Preoperative examination, unspecified 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) Dementia, unspecified, without behavioral disturbance MS (multiple sclerosis) (HCC) Multiple sclerosis History of complex partial epilepsy Personal history of other disorders of nervous system and sense organs Restless legs syndrome Restless legs syndrome (RLS) Atherosclerosis of [place] coronary artery of [place] heart with angina pectoris Essential hypertension Unspecified [...] malaise and fatigue [facility] Diagnosis Pre-operative examination- Primary Preoperative examination, unspecified 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) Dementia, unspecified, without behavioral disturbance MS (multiple sclerosis) (HCC) Multiple sclerosis History of complex partial epilepsy Personal history of other disorders of nervous system and sense organs Restless legs syndrome Restless legs syndrome (RLS) Atherosclerosis of [place] coronary artery of [place] heart with angina pectoris Essential hypertension Unspecified [...] Diarrhea, unspecified type [facility] Diagnosis Pre-operative examination- Primary Preoperative examination, unspecified 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) Dementia, unspecified, without behavioral disturbance MS (multiple sclerosis) (HCC) Multiple sclerosis History of complex partial epilepsy Personal history of other disorders of nervous system and sense organs Restless legs syndrome Restless legs syndrome (RLS) Atherosclerosis of [place] coronary artery of [place] heart with angina pectoris Essential hypertension Unspecified [...] syndrome Restless legs syndrome (RLS) Atherosclerosis of [place] coronary artery of [place] heart with angina pectoris Essential hypertension Unspecified [...] Lack of coordination [facility] Diagnosis Pre-operative examination- Primary Preoperative examination, unspecified 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) Dementia, unspecified, without behavioral disturbance MS (multiple sclerosis) (HCC) Multiple sclerosis History of complex partial epilepsy Personal history of other disorders of nervous system and sense organs Restless legs syndrome Restless legs syndrome (RLS) Atherosclerosis of [place] coronary artery of [place] heart with angina pectoris Essential hypertension Unspecified [...] daily living (ADL) [facility] Diagnosis Pre-operative examination- Primary Preoperative examination, unspecified 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) Dementia, unspecified, without behavioral disturbance MS (multiple sclerosis) (HCC) Multiple sclerosis History of complex partial epilepsy Personal history of other disorders of nervous system and sense organs Restless legs syndrome Restless legs syndrome (RLS) Atherosclerosis of [place] coronary artery of [place] heart with angina pectoris Essential hypertension Unspecified [...] obstruction or gangrene [facility] [place] [facility]* Diagnosis Pre-operative examination- Primary Preoperative examination, unspecified 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) Dementia, unspecified, without behavioral disturbance MS (multiple sclerosis) (HCC) Multiple sclerosis History of complex partial epilepsy Personal history of other disorders of nervous system and sense organs Restless legs syndrome Restless legs syndrome (RLS) Atherosclerosis of [place] coronary artery of [place] heart with angina pectoris Essential hypertension Unspecified [...] initial encounter- Primary [facility] [place] [facility]* Diagnosis Pre-operative examination- Primary Preoperative examination, unspecified 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) Dementia, unspecified, without behavioral disturbance MS (multiple sclerosis) (HCC) Multiple sclerosis History of complex partial epilepsy Personal history of other disorders of nervous system and sense organs Restless legs syndrome Restless legs syndrome (RLS) Atherosclerosis of [place] coronary artery of [place] heart with angina pectoris Essential hypertension Unspecified [...] Abnormality of gait [facility] Diagnosis Pre-operative examination- Primary Preoperative examination, unspecified 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) Dementia, unspecified, without behavioral disturbance MS (multiple sclerosis) (HCC) Multiple sclerosis History of complex partial epilepsy Personal history of other disorders of nervous system and sense organs Restless legs syndrome Restless legs syndrome (RLS) Atherosclerosis of [place] coronary artery of [place] heart with angina pectoris Essential hypertension Unspecified [...] legs syndrome (RLS) [facility] Additional Instructions 5 sutures were placed in your scalp to stop the bleeding from the laceration. The sutures will need to be removed in 10 to 14 days. Please see your family doctor or return to the ER for suture removal. Please return for repeat evaluation if he have any further concerns [facility] Work Phone: Hospital Discharge instructions Additional Instructions Wear sling for stabilization of your fractured clavicle. Follow-up with Dr. Quintanilla for repeat evaluation early next week and to discuss further treatment options. Return to the ER should you have any [facility]: Reason for referral (narrative)* Outpatient Procedure (Routine) - New Request Specialty Diagnoses / Procedures Referred By Vivienne hunt [facility] Diagnoses H/O acute myocardial infarction Cardiomyopathy, unspecified type (HCC) Pre-op evaluation Procedures ECHO ECHO [facility] R-T 2D W/WOM-MODE COMPL SPEC&COLR D Anila De Paz MD [address] [place] [address] [facility] [address] [place] [address] Referral ID Status Reason Start Date Expiration Date Visits Requested Visits Authorized [id number] New Request Auto-Generat ed Referral 06/18/2024 06/18/2025 1 1 * Consult, Test, Treat (Routine) - Authorized Specialty Diagnoses / Procedures Referred By Vivienne hunt Referred To Contact Cardiology Diagnoses H/O acute myocardial infarction Cardiomyopathy, unspecified type (HCC) Pre-op evaluation Procedures CONSULT TO CARDIOLOGY OFFICE/OUTPATIENT [facility] 60 MINUTES Anila De Paz MD [address] [place] [address] Referral ID Status Reason Start Date Expiration Date Visits Requested Visits Authorized [id number] Authorized PCP Requested Referral 06/18/2024 06/18/2025 1 1 * Consult, Test, Treat (Routine) - Authorized Specialty Diagnoses / Procedures Referred By Vivienne hunt Referred To Contact Internal Medicine Diagnoses Pre-op evaluation Encounter to establish care Procedures CONSULT TO INTERNAL MEDICINE OFFICE/OUTPATIENT [facility] 60 MINUTES Anila De Paz MD [address] [place] [address] Referral ID Status Reason Start Date Expiration Date Visits Requested Visits Authorized [id number] Authorized PCP Requested Referral 06/18/2024 06/18/2025 1 1 [facility] for referral (narrative)* Outpatient Procedure (Routine) - Closed Specialty Diagnoses / Procedures Referred By Vivienne hunt Referred To Contact [facility] Diagnoses Hiatal hernia Procedures EGD DIAGNOSTIC ESOPHAGOGASTRODUODENOSC OPY TRANSORAL DIAGNOSTIC Anila De Paz MD [address] [place] [id number] [facility] [address] [place], [place] [phone] Referral ID Status Reason Start Date Expiration Date V isits Requested Visits Authorized [id number] Closed Auto-Generate d Referral 06/18/2024 06/18/2025 1 1 [facility] for referral (narrative)* Outpatient Procedure (Routine) - Authorized Specialty Diagnoses / Procedures Referred By Contac t Referred To Contact [facility] Diagnoses Carotid bruit, unspecified laterality Procedures US CAROTID ARTERIES MAGN[facility] DUPLEX SCAN EXTRACRANIAL [place] [address] [place] [address] [facility] [place] [phone] Referral ID Status Reason Start Date Expiration Date Visits Requested Visits Authorized [id number] Authorized Auto-Generat ed Referral 4 08/03/2025 1 1 * Outpatient Procedure (Routine) - New Request Specialty Diagnoses / Procedures Referred By Contac t Referred To Contact [facility] Diagnoses H/O acute myocardial infarction Procedures ECG COMPLETE ECG ROUTINE ECG W/LEAST 12 LDS W/I&[place] [address] [place] [address] [facility] [place] [phone] Referral ID Status Reason Start Date Expiration Date Visits Requested Visits Authorized [id number] New Request Auto-Generat ed Referral 4 08/03/2025 1 1 [facility] for referral (narrative)* Outpatient Procedure (Routine) - New Request Specialty Diagnoses / Procedures Referred By Contac t Referred To Contact [facility] Diagnoses Neuropathy Procedures EMG(NEURO/NI) NERVE CONDUCTION STUDIES 9-10 STUDIES Denice Jaocbs PA-C [address] [place] [address] [place] [address] Referral ID Status Reason Start Date Expiration Date Visits Requested Visits Authorized [id number] New Request Auto-Generat ed Referral 08/06/2025 1 1 [facility] for referral (narrative)* Outpatient Procedure (Routine) - New Request Specialty Diagnoses / Procedures Referred By Vivienne hunt Referred To Contact [facility] Diagnoses Dilated pancreatic duct Procedures EGD - THERAPEUTIC, EUS, OR TUBE INTERVENTIONS EDG US EXAM SURGICAL ALTER STOM DUODENUM/JEJUNUM Susan Srinivasan MD [address] [facility]. [address] [place] [address] [place] [address] Referral ID Status Reason Start Date Expiration Date Visits Requested Visits Authorized [id number] New Request Auto-Generat ed Referral 09/08/2024 09/08/2025 1 1 [facility] for referral (narrative)* Outpatient Procedure (Routine) - Closed Specialty Diagnoses / Procedures Referred By Vivienne hunt Referred To Contact [facility] Diagnoses Choledocholithiasis Procedures ERCP ERCP REMOVE CALCULI/DEBRIS BILIARY/PANCREAS DUCT Alisa Haile MD [address] [place] [phone] [place] [address] Referral ID Status Reason Start Date Expiration Date V isits Requested Visits Authorized [id number] Closed Auto-Generate d Referral 09/13/2024 09/13/2025 1 1 [facility] for referral (narrative)* Outpatient Procedure (Routine) - Closed Specialty Diagnoses / Procedures [facility] Referred To Contact [facility] Diagnoses Choledocholithiasis Procedures ERCP ERCP REMOVE CALCULI/DEBRIS BILIARY/PANCREAS DUCT Alisa Haile MD [address] [place] [phone] [place] [phone] Referral ID Status Reason Start Date Expiration Date V isits Requested Visits Authorized [id number] Closed Auto-Generate d Referral 09/13/2024 09/13/2025 1 1 * Outpatient Procedure (Routine) - Closed Specialty Diagnoses / Procedures [facility] Ref[facility] To Contact [facility] Diagnoses Dilated pancreatic duct Procedures EGD - THERAPEUTIC, EUS, OR TUBE INTERVENTIONS EDG US EXAM SURGICAL ALTER STOM DUODENUM/JEJUNUM Susan Srinivasan MD [address] [facility]. [address] [place] [phone] [place] [phone] Referral ID Status Reason Start Date Expiration Date V isits Requested Visits Authorized [id number] Closed Auto-Generate d Referral 09/08/2024 09/08/2025 1 1 [facility] for referral (narrative)No reason for referral information [facility] Phone: [facility] N[facility]ative* Outpatient Procedure (Routine) - Closed Specialty Diagnoses / Procedures Referred By [facility] Referred To Contact [facility] Diagnoses Hiatal hernia Procedures EGD DIAGNOSTIC ESOPHAGOGASTRODUODENOSC OPY TRANSORAL DIAGNOSTIC Anila De Paz MD [address] [place] [address] [place] [phone] Referral ID Status Reason Start Date Expiration Date V isits Requested Visits Authorized [id number] Closed Auto-Generate d Referral 06/18/2024 06/18/2025 1 1 [facility] for visit Narrative* Outpatient Procedure (Routine) - Closed Specialty Diagnoses / Procedures Referred By Vivienne hunt Referred To Contact [facility] Diagnoses Dilated pancreatic duct Procedures EGD - THERAPEUTIC, EUS, OR TUBE INTERVENTIONS EDG US EXAM SURGICAL ALTER STOM DUODENUM/JEJUNUM Susan Srinivasan MD [address] [place] [address] [facility] [address] [place] [address] Referral ID Status Reason Start Date Expiration Date V isits Requested Visits Authorized [id number] Closed Auto-Generate d Referral 09/08/2024 09/08/2025 1 1 [facility] for visit Narrative* MRI/CT (Routine) - Closed Specialty Diagnoses / Procedures Referred By Vivienne hunt Referred To Contact CT IMAG[facility] Diagnoses Nausea Procedures CT ABD/PEL W IVCON CT ABD & PELVIS W/CONTRAST Anila De Paz MD [address] [place] [address] Phone: tel: fax: CT IMAG[facility] [place] [phone] Referral ID Status Reason Start Date Expiration Date V isits Requested Visits Authorized [id number] Closed Auto-Generate d Referral 11/02/2024 12/02/2025 1 1 [facility] Chief Complaint and Reason for Visit [...] Lightheadedness Overactive bladder Atherosclerotic heart disease of [place] coronary artery without angina pectoris Essential hypertension [...] Lightheadedness Overactive bladder Atherosclerotic heart disease of [place] coronary artery without angina pectoris Essential hypertension Presence of stent in coronary artery Hyperlipidemia Bronchiectasis Hypoxemia Abdominal wall hernia Essential hypertension Restless leg syndrome Seizure disorder Acute bronchitis Chief Complaint Adema in both legs, close to ankles 2 W FU SOB/SELF REF. 3 M FU 3 M FU NON-PRODUCTIVE COUGH Amb Documentation ABD WALL PAIN head injury xray [facility] ER FU CONGITIVE COMMUNICATION. RX HERE Reason for Visit Intermittent constip ation Leg edema, left Varicose veins of both legs with edema Debility Lightheadedness Overactive bladder Atherosclerotic heart disease of [place] coronary artery without angina pectoris Essential hypertension Presence of stent in coronary artery Hyperlipidemia Bronchiectasis Hypoxemia Abdominal wall hernia Essential hypertension Restless leg syndrome Seizure disorder Acute bronchitis Right inguinal hernia Fall (on)(from) incline, subsequent encounter Visit for suture removal Chief Complaint SOB/SELF REF. 3 M FU 3 M FU NON-PRODUCTIVE COUGH Amb Documentation ABD WALL PAIN head injury xray [facility] ER FU CONGITIVE COMMUNICATION. RX HERE Primary osteoarthritis, left shoulder CONGITIVE COMMUNICATION. RX HERE Reason for Visit Atherosclerotic hear t disease of [place] coronary artery without angina pectoris Essential hypertension Presence of stent in coronary artery Hyperlipidemia Bronchiectasis Hypoxemia Abdominal wall hernia Essential hypertension Restless leg syndrome Seizure disorder Acute bronchitis Right inguinal hernia Fall (on)(from) incline, subsequent encounter Visit for suture removal Chief Complaint SOB/SELF REF. 3 M FU 3 M FU NON-PRODUCTIVE COUGH Amb Documentation ABD WALL PAIN head injury xray [facility] ER FU CONGITIVE COMMUNICATION. RX HERE Primary osteoarthritis, left shoulder CONGITIVE COMMUNICATION. RX HERE POST FALL LAST NIGHT/LEFT ARM PAIN/HIT HEAD EORDERS Reason for Visit Atherosclerotic hear t disease of [place] coronary artery without angina pectoris Essential hypertension [...] WALL PAIN head injury xray [facility] ER FU CONGITIVE COMMUNICATION. RX HERE Primary [...] contusion Scalp contusion Atherosclerotic heart disease of [place] coronary artery without angina pectoris Debility Essential [...] contusion Scalp contusion Atherosclerotic heart disease of [place] coronary artery without angina pectoris Debility Essential [...] Restless leg syndrome Atherosclerotic heart disease of [place] coronary artery without angina pectoris Essential hypertension [...] Restless leg syndrome Atherosclerotic heart disease of [place] coronary artery without angina pectoris Essential hypertension Lightheadedness Hyperlipidemia Mass of upper inner quadrant of left breast Contusion of thoracic wall Lumbar contusion Atherosclerotic heart disease of [place] coronary artery without angina pectoris Cancer Essential [...] for Visit Atherosclerotic hear t disease of [place] coronary artery without angina pectoris Essential hypertension Lightheadedness Hyperlipidemia Mass of upper inner quadrant of left breast Contusion of thoracic wall Lumbar contusion Atherosclerotic heart disease of [place] coronary artery without angina pectoris Cancer Essential [...] sting Bronchiectasis Hypoxemia Atherosclerotic heart disease of [place] coronary artery without angina pectoris ALEXANDER (dyspnea on exertion) Hyperlipidemia Chief Complaint LUMP IN MIDDLE OF CH EST NUMEROUS BEE STINGS/TOP OF THIGH/RIGHT LEG RASH 3 M FU E ORDERS CONGITIVE COMM,BALANCE,WEAKNESS RX HERE 4 M FU Flu Shot DYSPNEA VISION LOSS Reason for Visit Sternal deformity Bee sting Bronchiectasis Hypoxemia Atherosclerotic heart disease of [place] coronary artery without angina pectoris ALEXNADER (dyspnea on exertion) Hyperlipidemia Chief Complaint NUMEROUS BEE STINGS/ TOP OF THIGH/RIGHT LEG RASH 3 M FU E ORDERS CONGITIVE COMM,BALANCE,WEAKNESS RX HERE 4 M FU Flu Shot DYSPNEA VISION LOSS LEFT BREAST LUMP FOLLOW UP Reason for Visit Bee sting Bronchiectasis Hypoxemia Atherosclerotic heart disease of [place] coronary artery without angina pectoris ALEXANDER (dyspnea on exertion) Hyperlipidemia Chief Complaint LEFT BREAST LUMP FOL LOW UP 6 M FU BACK BRACE RX HERE left hip issues 6 M FU EORDERS Reason for Visit Atherosclerotic hear t disease of [place] coronary artery without angina pectoris Debility Essential [...] for Visit Atherosclerotic hear t disease of [place] coronary artery without angina pectoris Debility Essential hypertension Falls frequently Hiatal hernia Hyperlipidemia Restless leg syndrome Right inguinal hernia Vascular dementia Difficulty swallowing Hiatal hernia Mass of upper inner quadrant of left breast Sternal deformity Osteoporosis Bronchiectasis Hypoxemia Atherosclerotic heart disease of [place] coronary artery without angina pectoris Dizziness Hyperlipidemia Chief Complaint BACK BRACE RX HERE left hip issues 6 M FU EORDERS 6 M FU DIZZINESS Amb Documentation Reason for Visit Hiatal hernia Mass of upper inner quadrant of left breast Sternal deformity Osteoporosis Bronchiectasis Hypoxemia Atherosclerotic heart disease of [place] coronary artery without angina pectoris Dizziness Hyperlipidemia Chief Complaint Admit Date RIGHT KNEE July 05, 2024 1:18pm Surgery Clearance July 07, 2024 11:42am OSTEOARTHRITIS OF RIGHT KNEE. RX HERE No vember 2023 1:30pm RIGHT KNEE July 12, 2024 3:46pm RIGHT KNEE July 19, 2024 3 :39pm Room 2 July 19, 2024 4 :00pm fall September 18, 2024 8 :36am F/U Care Home Discharge September 1:03pm SCREENING October 18, 2024 1:23 pm 6 M FU October 22, 2024 2:11 pm Reason for Visit Admit Date Osteoarthritis of right knee July 052023 1:18pm Atherosclerotic heart diseas e of [place] coronary artery without angina pectoris July 07, [...] fall September 18, 2024 8 :36am F/U Care Home Discharge September 1:03pm SCREENING October 18, 2024 [...] fall September 18, 2024 8 :36am F/U Care Home Discharge September 1:03pm SCREENING October 18, 2024 [...] 2024 2:11pm Chief Complaint Admit Date F/U Care Home Discharge September 1:03pm SCREENING October 18, 2024 [...] Time Name of Medical Power of Television News Anchor Delroy PURVIS hu sband September 01, 2021 6:35pm Name of Medical Power of Television News Anchor Delroy dinero September 02, 2021 8:44pm Name of Medical Power of Television News Anchor dl Douglas September 05, 2021 12:39pm Living Will Yes October 05 6:26pm Power of Television News Anchor Yes October 05, 2021 6:26pm Advance Directive Response Recorded Date/ Time Living Will Yes October 05 6:26pm Power of Television News Anchor Yes October 05, 2021 6:26pm Advance Directive Response Recorded Date/ Time Name of Medical Power of Television News Anchor ? February 15, 2022 9:51am Living Will Yes February 15, 2022 9 :51am Power of Television News Anchor Yes February 15, 2022 9:51am Advance Directive Response Recorded Date/ Time Name of Medical Power of Television News Anchor ? February 15, 2022 9:51am Name of Medical Power of Television News Anchor delroy jones e- March 15, 2022 7:44pm Living Will Yes March 15, 2022 7:44pm Power of Television News Anchor Yes March 15 7:44pm Advance Directive Response Recorded Date/ Time Name of Medical Power of Television News Anchor delroy jonese- March 15, 2022 6:44pm Name of Medical Power of Television News Anchor delroy -- July 13, 2022 12:23am Living Will Yes July 13, 2 022 12:23am Power of Television News Anchor Yes July 13, 2022 12:23am Advance Directive Response Recorded Date/ Time Name of Medical Power of Television News Anchor delroy --shireenban d July 13, 2022 12:23am Living Will Yes July 13, 2 022 12:23am Power of Television News Anchor Yes July 13, 2022 12:23am Advance Directive Response Recorded Date/ Time Name of Medical Power of Television News Anchor delroy --shireenban d July 13, 2022 12:23am Name of Medical Power of Television News Anchor HUSBND October 16, 2022 6:43pm Living Will Yes October 16, 2022 6:43pm Power of Television News Anchor Yes October 16 6:43pm Advance Directive Response Recorded Date/ Time Name of Medical Power of Television News Anchor HUSBND October 16, 2022 7:43pm Living Will Yes October 16, 2022 7:43pm Power of Television News Anchor Yes October 16 7:43pm Advance Directive Response Recorded Date/ Time Living Will Yes January 20, 2023 8 :53am Power of Television News Anchor Yes January 20, 2023 8:53am Name of Medical Power of Television News Anchor HUSBND October 16, 2022 7:43pm Advance Directive Response Recorded Date/ Time Living Will Yes January 20, 2023 8 :53am Power of Television News Anchor Yes January 20, 2023 8:53am Advance Directive Response Recorded Date/ Time Living Will Yes March 24, 2023 11:37am Power of Television News Anchor Yes March 24 11:37am Advance Directive Response Recorded Date/ Time Living Will Yes May 15, 2023 2:11pm Power of Television News Anchor Yes April 2:11pm Advance Directive Response Recorded Date/ Time Living Will Yes May 15, 2023 1:11pm Power of Television News Anchor Yes April 1:11pm Documents on File Type Date Recorded 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 anation Advance Directive(s) 08/06/2024 2:46 PM Documents on File Type Date Recorded 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 anation Advance Directive(s) 08/06/2024 2:46 PM Advance Directive Response Recorded Date/ Time Living Will Yes March 16, 2024 9:39am Power of Television News Anchor Yes March 16 9:39am Living Will Yes June 07 8:50am Power of Television News Anchor Yes June 07, 2024 8:50am Living Will Yes September 18 10:27am Power of Television News Anchor Yes September 18, 2024 10:27am Name of Medical Power of Television News Anchor September 18, 2024 10:27am Advance Directive Response Recorded Date/ Time Living Will Yes March 16, 2024 9:39am Do you have a Healthcare Power of Television News Anchor? Yes March 16, 2024 9:39am Living Will Yes September 18 10:27am Do you have a Healthcare Power of Television News Anchor? Yes September 18, 2024 10:27am Name of Medical Power of Television News Anchor September 18, 2024 10:27am Advance Directive Response Recorded Date/ Time Living Will Yes March 16, 2024 9:39am Do you have a Healthcare Power of Television News Anchor? Yes March 16, 2024 9:39am Do you have a Healthcare Power of Television News Anchor? Yes February 03, 2025 4:07am Reason for Referral Specialty Diagnoses / Procedures Referred By Contsada t Referred To Contact [facility] Diagnoses Dementia without behavioral disturbance, unspecified dementia type (HCC) Cognitive communication deficit Procedures CONSULT TO SPEECH THERAPY OFFICE/OUTPATIENT [facility] 60-74 MINUTES Laisha Lizarraga, ROSMERY.EMERGENCY MEDICAL TECH [address] [place] [address] [facility] [address] [place] [address] Referral ID Status Reason Start Date Expiration Date Visits Requested Visits Authorized [id number] Authorized Auto-Generat ed Referral 04/11/2022 04/11/2023 99 99 Specialty Diagnoses / Procedures Referred By Contac t Referred To Contact [facility] IMAG[facility] Diagnoses 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) Procedures MRI 3D POST PROCESSING 3D RENDERING W/INTERP&POSTPROC DIFF WORK STATION Laisha Lizarraga, ROSMERY.EMERGENCY MEDICAL TECH [address] [place] [phone] Mr [facility] Referral ID Status Reason Start Date Expiration Date Visits Requested Visits Authorized [id number] Authorized Auto-Generat ed Referral 11/13/2022 12/13/2023 1 1 Specialty Diagnoses / Procedures Referred By Contac t Referred To Contact [facility] Diagnoses 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) Procedures MRI BRAIN W QUANT WO IVCON MRI BRAIN BRAIN STEM W/O CONTRAST MATERIAL Laisha Lizarraga, CAMP COUNSELOR.EMERGENCY MEDICAL TECH [address] [place] [phone] [facility] Referral ID Status Reason Start Date Expiration Date Visits Requested Visits Authorized [id number] Authorized Auto-Generat ed Referral 11/13/2022 12/13/2023 1 1 Specialty Diagnoses / Procedures Referred By Contac t Referred To Contact [facility] Diagnoses 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) Procedures MRI 3D POST PROCESSING 3D RENDERING W/INTERP&POSTPROC DIFF WORK STATION Laisha Lizarraga, CAMP COUNSELOR.EMERGENCY MEDICAL TECH [address] [place] [phone] [facility] [place] [address] Referral ID Status Reason Start Date Expiration Date V isits Requested Visits Authorized [id number] Closed Auto-Generate d Referral 11/13/2022 12/13/2023 1 1 Specialty Diagnoses / Procedures Referred By Contac t Referred To Contact [facility] Diagnoses 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) Procedures MRI BRAIN W QUANT WO IVCON MRI BRAIN BRAIN STEM W/O CONTRAST MATERIAL Laisha Lizarraga, CAMP COUNSELOR.EMERGENCY MEDICAL TECH [address] [place] [phone] Mr Imaging [facility] Referral ID Status Reason Start Date Expiration Date V isits Requested Visits Authorized [id number] Closed Auto-Generate d Referral 11/13/2022 12/13/2023 1 1 Specialty Diagnoses / Procedures Referred By Contac t Referred To Contact General Surgery Diagnoses Hiatal hernia Gastroesophageal reflux disease, unspecified whether esophagitis present Procedures CONSULT TO GENERAL SURGERY OFFICE/OUTPATIENT NEW HIGH MDM 60 MINUTES Susan Squires MD [address] [place] [address] Laisha Sheppard MD [address] [place] [phone] Referral ID Status Reason Start Date Expiration Date Visits Requested Visits Authorized [id number] Authorized PCP Requested Referral 05/17/2024 05/17/2025 1 1 Specialty Diagnoses / Procedures Referred By Contac t Referred To Contact CT IMAGING Diagnoses Hiatal hernia Procedures CT CHEST W IVCON DIAGNOSTIC COMPUTED TOMOGRAPHY THORAX W/CONTRAST Anila De Paz MD [address] [place], [place] [id number] Ct Imaging [facility] Referral ID Status Reason Start Date Expiration Date Visits Requested Visits Authorized [id number] New Request Auto-Generat ed Referral 06/18/2024 07/18/2025 1 1 Specialty Diagnoses / Procedures Referred By Contac t Referred To Contact CT IMAGING Diagnoses Hiatal hernia Procedures CT ABD/PEL W IVCON CT ABD & PELVIS W/CONTRAST Anila De Paz MD [address] [place], [place] [id number] Ct Imaging [place] [address] Referral ID Status Reason Start Date Expiration Date Visits Requested Visits Authorized [id number] New Request Auto-Generat ed Referral 06/18/2024 07/18/2025 1 1 Specialty Diagnoses / Procedures Referred By Contac t Referred To Contact [facility] Diagnoses Hiatal hernia Procedures EGD DIAGNOSTIC ESOPHAGOGASTRODUODENOSC OPY TRANSORAL DIAGNOSTIC Anila De Paz MD [address] [place], [place] [id number] [facility] [address] [place] [address] Referral ID Status Reason Start Date Expiration Date Visits Requested Visits Authorized [id number] Authorized Auto-Generat ed Referral 06/18/2024 06/18/2025 1 1 Referral ID Status Reason Start Date Expiration Date V isits Requested Visits Authorized [id number] Closed Auto-Generate d Referral 06/18/2024 07/18/2025 1 1 Specialty Diagnoses / Procedures Referred By Contac t Referred To Contact Diagnoses 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, psychotic disturbance, mood disturbance, or anxiety (HCC) Procedures PROVIDER ORDERED FOLLOW UP OFFICE/OUTPATIENT [facility] 60 MINUTES Laisha Lizarraga, ROSMERY.EMERGENCY MEDICAL TECH [address] [place] [phone] Referral ID Status Reason Start Date Expiration Date Visits Requested Visits Authorized [id number] Authorized PCP Requested Referral 07/01/2025 1 1 Specialty Diagnoses / Procedures Referred By Contac t Referred To Contact Neurology Diagnoses Paresthesia of both feet Procedures CONSULT TO NEUROLOGY OFFICE/OUTPATIENT [facility] 60 MINUTES Laisha Lizarraga, ROSMERY.EMERGENCY MEDICAL TECH [address] [place] [phone] Referral ID Status Reason Start Date Expiration Date Visits Requested Visits Authorized [id number] Authorized PCP Requested Referral 07/01/2025 1 1 Specialty Diagnoses / Procedures Referred By Contac t Referred To Contact MR IMAGING Diagnoses Abnormal results of liver function studies Procedures MRI 3D POST PROCESSING 3D RENDERING W/INTERP&POSTPROC DIFF WORK [facility] Anila De Paz MD [address] [place], [place] [id number] [facility] [place] [id number] Referral ID Status Reason Start Date Expiration Date Visits Requested Visits Authorized [id number] Authorized Auto-Generat ed Referral 09/03/2024 10/03/2025 1 1 Specialty Diagnoses / Procedures Referred By Contac t Referred To Contact MR IMAGING Diagnoses Abnormal results of liver function studies Procedures MRI PANC/MAGNOLIA WO/W IVCON MRI ABDOMEN W/O & W/CONTRAST MATERIAL Anila De Paz MD [address] [place], [place] [id number] [place] [id number] Referral ID Status Reason Start Date Expiration Date Visits Requested Visits Authorized [id number] Authorized Auto-Generat ed Referral 09/03/2024 10/03/2025 1 1 Specialty Diagnoses / Procedures Referred By Contac t Referred To Contact Diagnoses Hiatal hernia Epigastric pain Nausea and vomiting, unspecified vomiting type Pre-op exam Procedures REFER TO [facility] PREOPERATIVE [facility]IM[facility] OFFICE/OUTPATIENT [facility] 60 MINUTES Anila De Paz MD [address] [place] [id number] Referral ID Status Reason Start Date Expiration Date Visits Requested Visits Authorized [id number] Authorized PCP Requested Referral 09/03/2024 09/03/2025 1 1 Referral ID Status Reason Start Date Expiration Date V isits Requested Visits Authorized [id number] Closed Auto-Generate d Referral 09/03/2024 10/03/2025 1 1 Referral ID Status Reason Start Date Expiration Date V isits Requested Visits Authorized [id number] Closed Auto-Generate d Referral 09/03/2024 10/03/2025 1 1 Summary Purpose Additional Source Comments Source Comments (unrecognize d section and content) In the event this informatio n is protected by the Federal Confidentiality of Alcohol and Drug Abuse Patient Records regulations: The Federal rules restrict any use of the information to criminally investigate or prosecute any alcohol or drug abuse patient.[facility] the event this information is protected by the Federal Confidentiality of Alcohol and Drug Abuse Patient Records regulations: The Federal rules restrict any use of the information to criminally investigate or prosecute any alcohol or drug abuse patient.[facility]In the event this information is protected by the Federal Confidentiality of Alcohol and Drug Abuse Patient Records regulations: The Federal rules restrict any use of the information to criminally investigate or prosecute any alcohol or drug abuse patient.[facility]In the event this information is protected by the Federal Confidentiality of Alcohol and Drug Abuse Patient Records regulations: The Federal rules restrict any use of the information to criminally investigate or prosecute any alcohol or drug abuse patient.[facility]In the event this information is protected by the Federal Confidentiality of Alcohol and Drug Abuse Patient Records regulations: The Federal rules restrict any use of the information to criminally investigate or prosecute any alcohol or drug abuse patient.[facility]In the event this information is protected by the Federal Confidentiality of Alcohol and Drug Abuse Patient Records regulations: The Federal rules restrict any use of the information to criminally investigate or prosecute any alcohol or drug abuse patient.[facility]In the event this information is protected by the Federal Confidentiality of Alcohol and Drug Abuse Patient Records regulations: The Federal rules restrict any use of the information to criminally investigate or prosecute any alcohol or drug abuse patient.[facility]In the event this information is protected by the Federal Confidentiality of Alcohol and Drug Abuse Patient Records regulations: The Federal rules restrict any use of the information to criminally investigate or prosecute any alcohol or drug abuse patient.[facility]In the event this information is protected by the Federal Confidentiality of Alcohol and Drug Abuse Patient Records regulations: The Federal rules restrict any use of the information to criminally investigate or prosecute any alcohol or drug abuse patient.[facility] HospitalIn the event this information is protected by the Federal Confidentiality of Alcohol and Drug Abuse Patient Records regulations: The Federal rules restrict any use of the information to criminally investigate or prosecute any alcohol or drug abuse patient.[facility]In the event this information is protected by the Federal Confidentiality of Alcohol and Drug Abuse Patient Records regulations: The Federal rules restrict any use of the information to criminally investigate or prosecute any alcohol or drug abuse patient.[facility]In the event this information is protected by the Federal Confidentiality of Alcohol and Drug Abuse Patient Records regulations: The Federal rules restrict any use of the information to criminally investigate or prosecute any alcohol or drug abuse patient.[facility] HospitalIn the event this information is protected by the Federal Confidentiality of Alcohol and Drug Abuse Patient Records regulations: The Federal rules restrict any use of the information to criminally investigate or prosecute any alcohol or drug abuse patient.[facility] HospitalIn the event this information is protected by the Federal Confidentiality of Alcohol and Drug Abuse Patient Records regulations: The Federal rules restrict any use of the information to criminally investigate or prosecute any alcohol or drug abuse patient.[facility] HospitalIn the event this information is protected by the Federal Confidentiality of Alcohol and Drug Abuse Patient Records regulations: The Federal rules restrict any use of the information to criminally investigate or prosecute any alcohol or drug abuse patient.[facility] HospitalIn the event this information is protected by the Federal Confidentiality of Alcohol and Drug Abuse Patient Records regulations: The Federal rules restrict any use of the information to criminally investigate or prosecute any alcohol or drug abuse patient.[facility] HospitalIn the event this information is protected by the Federal Confidentiality of Alcohol and Drug Abuse Patient Records regulations: The Federal rules restrict any use of the information to criminally investigate or prosecute any alcohol or drug abuse patient.[facility] HospitalIn the event this information is protected by the Federal Confidentiality of Alcohol and Drug Abuse Patient Records regulations: The Federal rules restrict any use of the information to criminally investigate or prosecute any alcohol or drug abuse patient.[facility] HospitalIn the event this information is protected by the Federal Confidentiality of Alcohol and Drug Abuse Patient Records regulations: The Federal rules restrict any use of the information to criminally investigate or prosecute any alcohol or drug abuse patient.[facility] HospitalIn the event this information is protected by the Federal Confidentiality of Alcohol and Drug Abuse Patient Records regulations: The Federal rules restrict any use of the information to criminally investigate or prosecute any alcohol or drug abuse patient.[facility] HospitalIn the event this information is protected by the Federal Confidentiality of Alcohol and Drug Abuse Patient Records regulations: The Federal rules restrict any use of the information to criminally investigate or prosecute any alcohol or drug abuse patient.[facility] HospitalIn the event this information is protected by the Federal Confidentiality of Alcohol and Drug Abuse Patient Records regulations: The Federal rules restrict any use of the information to criminally investigate or prosecute any alcohol or drug abuse patient.[facility] HospitalIn the event this information is protected by the Federal Confidentiality of Alcohol and Drug Abuse Patient Records regulations: The Federal rules restrict any use of the information to criminally investigate or prosecute any alcohol or drug abuse patient.[facility]In the event this information is protected by the Federal Confidentiality of Alcohol and Drug Abuse Patient Records regulations: The Federal rules restrict any use of the information to criminally investigate or prosecute any alcohol or drug abuse patient.[facility] HospitalIn the event this information is protected by the Federal Confidentiality of Alcohol and Drug Abuse Patient Records regulations: The Federal rules restrict any use of the information to criminally investigate or prosecute any alcohol or drug abuse patient.[facility] HospitalIn the event this information is protected by the Federal Confidentiality of Alcohol and Drug Abuse Patient Records regulations: The Federal rules restrict any use of the information to criminally investigate or prosecute any alcohol or drug abuse patient.[facility] HospitalIn the event this information is protected by the Federal Confidentiality of Alcohol and Drug Abuse Patient Records regulations: The Federal rules restrict any use of the information to criminally investigate or prosecute any alcohol or drug abuse patient.[facility] HospitalIn the event this information is protected by the Federal Confidentiality of Alcohol and Drug Abuse Patient Records regulations: The Federal rules restrict any use of the information to criminally investigate or prosecute any alcohol or drug abuse patient.[facility] HospitalIn the event this information is protected by the Federal Confidentiality of Alcohol and Drug Abuse Patient Records regulations: The Federal rules restrict any use of the information to criminally investigate or prosecute any alcohol or drug abuse patient.[facility] HospitalIn the event this information is protected by the Federal Confidentiality of Alcohol and Drug Abuse Patient Records regulations: The Federal rules restrict any use of the information to criminally investigate or prosecute any alcohol or drug abuse patient.[facility] HospitalIn the event this information is protected by the Federal Confidentiality of Alcohol and Drug Abuse Patient Records regulations: The Federal rules restrict any use of the information to criminally investigate or prosecute any alcohol or drug abuse patient.[facility] HospitalIn the event this information is protected by the Federal Confidentiality of Alcohol and Drug Abuse Patient Records regulations: The Federal rules restrict any use of the information to criminally investigate or prosecute any alcohol or drug abuse patient.[facility] HospitalIn the event this information is protected by the Federal Confidentiality of Alcohol and Drug Abuse Patient Records regulations: The Federal rules restrict any use of the information to criminally investigate or prosecute any alcohol or drug abuse patient.[facility] HospitalIn the event this information is protected by the Federal Confidentiality of Alcohol and Drug Abuse Patient Records regulations: The Federal rules restrict any use of the information to criminally investigate or prosecute any alcohol or drug abuse patient.[facility] HospitalIn the event this information is protected by the Federal Confidentiality of Alcohol and Drug Abuse Patient Records regulations: The Federal rules restrict any use of the information to criminally investigate or prosecute any alcohol or drug abuse patient.[facility] HospitalIn the event this information is protected by the Federal Confidentiality of Alcohol and Drug Abuse Patient Records regulations: The Federal rules restrict any use of the information to criminally investigate or prosecute any alcohol or drug abuse patient.[facility] HospitalIn the event this information is protected by the Federal Confidentiality of Alcohol and Drug Abuse Patient Records regulations: The Federal rules restrict any use of the information to criminally investigate or prosecute any alcohol or drug abuse patient.[facility] HospitalIn the event this information is protected by the Federal Confidentiality of Alcohol and Drug Abuse Patient Records regulations: The Federal rules restrict any use of the information to criminally investigate or prosecute any alcohol or drug abuse patient.[facility] HospitalIn the event this information is protected by the Federal Confidentiality of Alcohol and Drug Abuse Patient Records regulations: The Federal rules restrict any use of the information to criminally investigate or prosecute any alcohol or drug abuse patient.[facility] HospitalIn the event this information is protected by the Federal Confidentiality of Alcohol and Drug Abuse Patient Records regulations: The Federal rules restrict any use of the information to criminally investigate or prosecute any alcohol or drug abuse patient.[facility] HospitalIn the event this information is protected by the Federal Confidentiality of Alcohol and Drug Abuse Patient Records regulations: The Federal rules restrict any use of the information to criminally investigate or prosecute any alcohol or drug abuse patient.[facility] HospitalIn the event this information is protected by the Federal Confidentiality of Alcohol and Drug Abuse Patient Records regulations: The Federal rules restrict any use of the information to criminally investigate or prosecute any alcohol or drug abuse patient.[facility] HospitalIn the event this information is protected by the Federal Confidentiality of Alcohol and Drug Abuse Patient Records regulations: The Federal rules restrict any use of the information to criminally investigate or prosecute any alcohol or drug abuse patient.[facility] HospitalIn the event this information is protected by the Federal Confidentiality of Alcohol and Drug Abuse Patient Records regulations: The Federal rules restrict any use of the information to criminally investigate or prosecute any alcohol or drug abuse patient.[facility] HospitalIn the event this information is protected by the Federal Confidentiality of Alcohol and Drug Abuse Patient Records regulations: The Federal rules restrict any use of the information to criminally investigate or prosecute any alcohol or drug abuse patient.[facility] HospitalIn the event this information is protected by the Federal Confidentiality of Alcohol and Drug Abuse Patient Records regulations: The Federal rules restrict any use of the information to criminally investigate or prosecute any alcohol or drug abuse patient.[facility] HospitalIn the event this information is protected by the Federal Confidentiality of Alcohol and Drug Abuse Patient Records regulations: The Federal rules restrict any use of the information to criminally investigate or prosecute any alcohol or drug abuse patient.[facility] HospitalIn the event this information is protected by the Federal Confidentiality of Alcohol and Drug Abuse Patient Records regulations: The Federal rules restrict any use of the information to criminally investigate or prosecute any alcohol or drug abuse patient.[facility] HospitalIn the event this information is protected by the Federal Confidentiality of Alcohol and Drug Abuse Patient Records regulations: The Federal rules restrict any use of the information to criminally investigate or prosecute any alcohol or drug abuse patient.[facility] HospitalIn the event this information is protected by the Federal Confidentiality of Alcohol and Drug Abuse Patient Records regulations: The Federal rules restrict any use of the information to criminally investigate or prosecute any alcohol or drug abuse patient.[facility] HospitalIn the event this information is protected by the Federal Confidentiality of Alcohol and Drug Abuse Patient Records regulations: The Federal rules restrict any use of the information to criminally investigate or prosecute any alcohol or drug abuse patient.[facility] HospitalIn the event this information is protected by the Federal Confidentiality of Alcohol and Drug Abuse Patient Records regulations: The Federal rules restrict any use of the information to criminally investigate or prosecute any alcohol or drug abuse patient.[facility] HospitalIn the event this information is protected by the Federal Confidentiality of Alcohol and Drug Abuse Patient Records regulations: The Federal rules restrict any use of the information to criminally investigate or prosecute any alcohol or drug abuse patient.[facility] HospitalIn the event this information is protected by the Federal Confidentiality of Alcohol and Drug Abuse Patient Records regulations: The Federal rules restrict any use of the information to criminally investigate or prosecute any alcohol or drug abuse patient.[facility] HospitalIn the event this information is protected by the Federal Confidentiality of Alcohol and Drug Abuse Patient Records regulations: The Federal rules restrict any use of the information to criminally investigate or prosecute any alcohol or drug abuse patient.[facility] HospitalIn the event this information is protected by the Federal Confidentiality of Alcohol and Drug Abuse Patient Records regulations: The Federal rules restrict any use of the information to criminally investigate or prosecute any alcohol or drug abuse patient.[facility] HospitalIn the event this information is protected by the Federal Confidentiality of Alcohol and Drug Abuse Patient Records regulations: The Federal rules restrict any use of the information to criminally investigate or prosecute any alcohol or drug abuse patient.[facility] HospitalIn the event this information is protected by the Federal Confidentiality of Alcohol and Drug Abuse Patient Records regulations: The Federal rules restrict any use of the information to criminally investigate or prosecute any alcohol or drug abuse patient.[facility] HospitalIn the event this information is protected by the Federal Confidentiality of Alcohol and Drug Abuse Patient Records regulations: The Federal rules restrict any use of the information to criminally investigate or prosecute any alcohol or drug abuse patient.[facility] HospitalIn the event this information is protected by the Federal Confidentiality of Alcohol and Drug Abuse Patient Records regulations: The Federal rules restrict any use of the information to criminally investigate or prosecute any alcohol or drug abuse patient.[facility] HospitalIn the event this information is protected by the Federal Confidentiality of Alcohol and Drug Abuse Patient Records regulations: The Federal rules restrict any use of the information to criminally investigate or prosecute any alcohol or drug abuse patient.[facility] HospitalIn the event this information is protected by the Federal Confidentiality of Alcohol and Drug Abuse Patient Records regulations: The Federal rules restrict any use of the information to criminally investigate or prosecute any alcohol or drug abuse patient.[facility] HospitalIn the event this information is protected by the Federal Confidentiality of Alcohol and Drug Abuse Patient Records regulations: The Federal rules restrict any use of the information to criminally investigate or prosecute any alcohol or drug abuse patient.[facility] HospitalIn the event this information is protected by the Federal Confidentiality of Alcohol and Drug Abuse Patient Records regulations: The Federal rules restrict any use of the information to criminally investigate or prosecute any alcohol or drug abuse patient.[facility] HospitalIn the event this information is protected by the Federal Confidentiality of Alcohol and Drug Abuse Patient Records regulations: The Federal rules restrict any use of the information to criminally investigate or prosecute any alcohol or drug abuse patient.[facility] HospitalIn the event this information is protected by the Federal Confidentiality of Alcohol and Drug Abuse Patient Records regulations: The Federal rules restrict any use of the information to criminally investigate or prosecute any alcohol or drug abuse patient.[facility] HospitalIn the event this information is protected by the Federal Confidentiality of Alcohol and Drug Abuse Patient Records regulations: The Federal rules restrict any use of the information to criminally investigate or prosecute any alcohol or drug abuse patient.[facility] HospitalIn the event this information is protected by the Federal Confidentiality of Alcohol and Drug Abuse Patient Records regulations: The Federal rules restrict any use of the information to criminally investigate or prosecute any alcohol or drug abuse patient.[facility] HospitalIn the event this information is protected by the Federal Confidentiality of Alcohol and Drug Abuse Patient Records regulations: The Federal rules restrict any use of the information to criminally investigate or prosecute any alcohol or drug abuse patient.[facility] HospitalIn the event this information is protected by the Federal Confidentiality of Alcohol and Drug Abuse Patient Records regulations: The Federal rules restrict any use of the information to criminally investigate or prosecute any alcohol or drug abuse patient.[facility] HospitalIn the event this information is protected by the Federal Confidentiality of Alcohol and Drug Abuse Patient Records regulations: The Federal rules restrict any use of the information to criminally investigate or prosecute any alcohol or drug abuse patient.[facility] HospitalIn the event this information is protected by the Federal Confidentiality of Alcohol and Drug Abuse Patient Records regulations: The Federal rules restrict any use of the information to criminally investigate or prosecute any alcohol or drug abuse patient.[facility] HospitalIn the event this information is protected by the Federal Confidentiality of Alcohol and Drug Abuse Patient Records regulations: The Federal rules restrict any use of the information to criminally investigate or prosecute any alcohol or drug abuse patient.[facility] HospitalIn the event this information is protected by the Federal Confidentiality of Alcohol and Drug Abuse Patient Records regulations: The Federal rules restrict any use of the information to criminally investigate or prosecute any alcohol or drug abuse patient.[facility] HospitalIn the event this information is protected by the Federal Confidentiality of Alcohol and Drug Abuse Patient Records regulations: The Federal rules restrict any use of the information to criminally investigate or prosecute any alcohol or drug abuse patient.[facility] HospitalIn the event this information is protected by the Federal Confidentiality of Alcohol and Drug Abuse Patient Records regulations: The Federal rules restrict any use of the information to criminally investigate or prosecute any alcohol or drug abuse patient.[facility] HospitalIn the event this information is protected by the Federal Confidentiality of Alcohol and Drug Abuse Patient Records regulations: The Federal rules restrict any use of the information to criminally investigate or prosecute any alcohol or drug abuse patient.[facility] Hospital[facility] the event this information is protected by the Federal Confidentiality of Alcohol and Drug Abuse Patient Records regulations: The Federal rules restrict any use of the information to criminally investigate or prosecute any alcohol or drug abuse patient.[facility] Hospital[facility] the event this information is protected by the Federal Confidentiality of Alcohol and Drug Abuse Patient Records regulations: The Federal rules restrict any use of the information to criminally investigate or prosecute any alcohol or drug abuse patient.[facility] Hospital[facility] the event this information is protected by the Federal Confidentiality of Alcohol and Drug Abuse Patient Records regulations: The Federal rules restrict any use of the information to criminally investigate or prosecute any alcohol or drug abuse patient.[facility] HospitalIn the event this information is protected by the Federal Confidentiality of Alcohol and Drug Abuse Patient Records regulations: The Federal rules restrict any use of the information to criminally investigate or prosecute any alcohol or drug abuse patient.[facility] HospitalIn the event this information is protected by the Federal Confidentiality of Alcohol and Drug Abuse Patient Records regulations: The Federal rules restrict any use of the information to criminally investigate or prosecute any alcohol or drug abuse patient.[facility] HospitalIn the event this information is protected by the Federal Confidentiality of Alcohol and Drug Abuse Patient Records regulations: The Federal rules restrict any use of the information to criminally investigate or prosecute any alcohol or drug abuse patient.[facility] Reason for Visit (unrecogniz ed section and content) Reason Comments OT Discharge Specialty Diagnoses / Procedures Referred By Vivienne hunt Referred To Contact [facility] Diagnoses Fine motor impairment Procedures CONSULT TO UPPER TIER OCCUPATIONAL THERAPY EVAL HIGH COMPLEX 60 MINS Laisha Lizarraga, CAMP COUNSELOR.EMERGENCY MEDICAL TECH [address] [place] [phone] Phone: tel: fax: [facility] [address] [place], [place] [phone] Referral ID Status Reason Start Date Expiration Date Visits Requested Visits Authorized [id number] Authorized PCP Requested Referral Auto-Generate d Referral [...] BRAIN STEM W/O CONTRAST MATERIAL Laisha Lizarraga, CAMP COUNSELOR.EMERGENCY MEDICAL TECH [address] [place] [phone] Mr Imaging [facility]95 Referral ID Status Reason Start Date Expiration Date V isits Requested Visits Authorized [id number] Closed Auto-Generate d Referral 11/13/2022 12/13/2023 1 1 Reason Comments Consult Diaphragmatic Hernia Reason Onset Date Comments Refill Request 06/10/2024 Reason Comments Overlock Waistline Joiner - Other Chart prep Reason Comments Consult Specialty Diagnoses / Procedures Referred By Contac t Referred To Contact General Surgery Diagnoses Hiatal hernia Gastroesophageal reflux disease, unspecified whether esophagitis present Procedures CONSULT TO GENERAL SURGERY OFFICE/OUTPATIENT [facility] 60 MINUTES Susan Squires MD [address] [place] [address] Laisha Sheppard MD [address] [place] [address] Referral ID Status Reason Start Date Expiration Date V isits Requested Visits Authorized [id number] Closed PCP Requested Referral 05/17/2024 05/17/2025 1 [address] Specialty Diagnoses / Procedures Referred By Vivienne t Referred To Contact CT IMAGING Diagnoses Hiatal hernia Procedures CT ABD/PEL W IVCON CT ABD & PELVIS W/CONTRAST Anila De Paz MD [address] [place] [address] Ct Imaging [place] [address] Referral ID Status Reason Start Date Expiration Date V isits Requested Visits Authorized [id number] Closed Auto-Generate d Referral 06/18/2024 07/18/2025 1 [...] Pre-op evaluation Procedures CONSULT TO CARDIOLOGY OFFICE/OUTPATIENT [facility] 60 MINUTES Anila De Paz MD [address] [place], [place] [id number] Referral ID Status Reason Start Date Expiration Date V isits Requested Visits Authorized [id number] Closed PCP Requested Referral 06/18/2024 06/18/2025 1 1 Reason Comments Consult Paresthesia of both feet/ illegal writing Specialty Diagnoses / Procedures Referred By Contac t Referred To Contact Neurology Diagnoses Paresthesia of both feet Procedures CONSULT TO NEUROLOGY OFFICE/OUTPATIENT [facility] 60 MINUTES Laisha Lizarraga, CAMP COUNSELOR.EMERGENCY MEDICAL TECH [address] [place] [address] Referral ID Status Reason Start Date Expiration Date V isits Requested Visits Authorized [id number] Closed PCP Requested Referral 07/31/2024 07/01/2025 1 [...] MATERIAL Anila De Paz MD [address] [place] [id number] Mr Imaging [place] [address] Referral ID Status Reason Start Date Expiration Date V isits Requested Visits Authorized [id number] Closed Auto-Generate d Referral 09/03/2024 10/03/2025 1 1 Reason Comments Patient Update Reason Comments Overlock Waistline Joiner - Other Update on EUS o rders Reason Comments Preparations For Surgery PACC Reason Onset Date Comments EMG 09/10/2024 Specialty Diagnoses / Procedures Referred By Contac t Referred To Contact [facility] Diagnoses Neuropathy Procedures EMG(NEURO/NI) NERVE CONDUCTION STUDIES 9-10 STUDIES Denice Jacobs PA-C [address] [place] [address] Neurological [facility] [place] [address] Referral ID Status Reason Start Date Expiration Date V isits Requested Visits Authorized [id number] Closed Auto-Generate d Referral 08/06/2024 08/06/2025 1 [...] Paz, Anila A, MD [address] [place] [address] Phone: tel: fax: [place] [address] Referral ID Status Reason Start Date Expiration Date V isits Requested Visits Authorized [id number] Closed Auto-Generate d Referral 11/02/2024 12/02/2025 1 1 Reason Onset Date Comments Refill Request 12/16/2024 Reason Comments Abrasion to right forearm x1 day Reason Comments Established Patient Reason Comments Follow Up Care Teams (unrecognized sec tion and content) Diazo Technician Relationship Specialty Start Date End Date Bryant Melendrez MD [address] [place], [place] [id number] PCP - General Internal Medicine 11/20/20 Diazo Technician Relationship Specialty Start Date End Date Bryant Melendrez MD [address] [place], [place] [id number] PCP - General Internal Medicine 11/20/20 Diazo Technician Relationship Specialty Start Date End Date Chema Perry MD [address] [place], [place] [id number] PCP - General Internal Medicine 04/11/22 Team Status: Active Member Role Status Dates [facility] Dr. Chema Perry MD Primary Care Provider Active Team Status: Inactive Member Role Status Dates Dr. Chema Perry MD Primary Care Provider, Attendi ng Provider Active Team Status: Inactive Member Role Status Dates Dr. Chema Perry MD Primary Care Provider, Referri ng Provider Active Sandra Vincent SALES AND LEASING CONSULTANT, SALES AND LEASING CONSULTANT-C Attending Provider Active Team Status: Inactive Member [...] Active Cal Keith MD Emergency Provider Active Diazo Technician Relationship Specialty Start Date End Date Chema Perry MD [address] [place] [address] PCP - General Internal Medicine 04/11/22 Team [...] Dr. Isma Bustamante DO Emergency Provider Active Diazo Technician Relationship Specialty Start Date End Date Chema Perry MD [address] [place] [address] PCP - General Internal Medicine 04/11/22 Team [...] MD Attending Provider, Referring P rochelle Active Diazo Technician Relationship Specialty Start Date End Date Chema Perry MD [address] [place] [address] PCP - General Internal Medicine 04/11/22 Team Status: Inactive Member Role Status Dates Dr. Chema Perry MD Primary Care Provider Active Dr. Sarbjit Kraus MD Attending Provider, Referr ing Provider Active Diazo Technician Relationship Specialty Start Date End Date Chema Perry MD [address] [place] [address] PCP - General Internal Medicine 04/11/22 Stephanie Brush [address] [facility] [place] [address] Referring Ophthalmology 07/23/23 Team Status: Active Member Role Status Dates Dr. Chema Perry MD Primary Care Provider Active Dr. Porfirio Bloom MD Attending Provider, Referring Provider Active Diazo Technician Relationship Specialty Start Date End Date Chema Perry MD [address] [place] [address] PCP - General Internal Medicine 04/11/22 Stephanie Brush [address] [facility] [place] [address] Referring Ophthalmology 07/23/23 Diazo Technician Relationship Specialty Start Date End Date Chema Perry MD [address] [place] [address] PCP - General Internal Medicine 04/11/22 Stephanie Brush [address] [facility] [place] [address] Referring Ophthalmology 07/23/23 Team Status: Inactive Member Role Status Dates Dr. Chema Perry MD Primary Care Provider, Referri ng Provider Active Tamiko Ku SALES AND LEASING CONSULTANT, SALES AND LEASING CONSULTANT-C Attending Provider Active Team Status: Inactive Member [...] MD Primary Care Provider Active Tamiko Ku SALES AND LEASING CONSULTANT, SALES AND LEASING CONSULTANT-C Attending Provider Active Team Status: Inactive Member Role Status Dates Dr. Chema Perry MD Primary Care Provider Active Tamiko Ku SALES AND LEASING CONSULTANT, SALES AND LEASING CONSULTANT-C Attending Provider, Referring P rochelle Active Diazo Technician Relationship Specialty Start Date End Date Chema Perry MD [address] [place] [address] PCP - General Internal Medicine 04/11/22 Stephanie Brush [address] [facility] [place] [address] Referring Ophthalmology 07/23/23 Diazo Technician Relationship Specialty Start Date End Date Chema Perry MD [address] [place] [address] PCP - General Internal Medicine 04/11/22 Stepahnie Brush [address] [facility] [place] [address] Referring Ophthalmology 07/23/23 Diazo Technician Relationship Specialty Start Date End Date Chema Perry MD [address] [place] [address] PCP - General Internal Medicine 04/11/22 Stephanie Brush [address] [facility] [place] [address] Referring Ophthalmology 07/23/23 Porfirio Carreon [address] [place] [phone] Referring Orthopedics 02/10/24 Diazo Technician Relationship Specialty Start Date End Date Chema Perry MD [address] [place] [address] PCP - General Internal Medicine 04/11/22 Stephanie Brush [address] [facility] [place], [place] [address] Referring Ophthalmology 07/23/23 Porfirio Carreon [address] [place] [phone] Referring Orthopedics 02/10/24 Diazo Technician Relationship Specialty Start Date End Date Chema Perry MD [address] [place], [place] [address] PCP - General Internal Medicine 04/11/22 Stephanie Brush [address] [place] [place], [place] [address] Referring Ophthalmology 07/23/23 Porfirio Carreon [address] [place] [phone] Referring Orthopedics 02/10/24 Diazo Technician Relationship Specialty Start Date End Date Chema Perry MD [address] [place] [address] PCP - General Internal Medicine 04/11/22 Stephanie Brush MD [address] [facility] [place] [address] Referring Ophthalmology 07/23/23 Porfirio Carreon [address] [place] [phone] Referring Orthopedics 02/10/24 Diazo Technician Relationship Specialty Start Date End Date Chema Perry MD [address] [place] [address] PCP - General Internal Medicine 04/11/22 Diazo Technician Relationship Specialty Start Date End Date Chema Perry MD [address] [place] [address] PCP - General Internal Medicine 04/11/22 Stephanie Brush MD [address] [place] [address] Referring Ophthalmology 07/23/23 Porfirio Carreon [address] [place] [phone] Referring Orthopedics 02/10/24 Diazo Technician Relationship Specialty Start Date End Date Chema Perry MD [address] [place] [address] PCP - General Internal Medicine 04/11/22 Stephanie Brush MD [address] [place] [address] Referring Ophthalmology 07/23/23 Porfirio Carreon [address] [place] [phone] Referring Orthopedics 02/10/24 Diazo Technician Relationship Specialty Start Date End Date Chema Perry MD [address] [place] [address] PCP - General Internal Medicine 04/11/22 Stephanie Brush MD [address] [facility] [place] [address] Referring Ophthalmology 07/23/23 Porfirio Carreon [address] [place] [phone] Referring Orthopedics 02/10/24 Diazo Technician Relationship Specialty Start Date End Date Chema Perry MD [address] [place] [address] PCP - General Internal Medicine 04/11/22 Stephanie Brush MD [address] [facility] [place], [place] [address] Referring Ophthalmology 07/23/23 Porfirio Carreon [address] [place] [phone] Referring Orthopedics 02/10/24 Diazo Technician Relationship Specialty Start Date End Date Chema Perry MD [address] [place] [address] PCP - General Internal Medicine 04/11/22 Stephanie Brush MD [address] [facility] [place] [address] Referring Ophthalmology 07/23/23 Porfirio Carreon [address] [place] [phone] Referring Orthopedics 02/10/24 Diazo Technician Relationship Specialty Start Date End Date Chema Perry MD [address] [place] [address] PCP - General Internal Medicine 04/11/22 Stephanie Brush MD [address] [facility] [place] [address]161 Referring Ophthalmology 07/23/23 Porfirio Carreon [address] [place] [phone] Referring Orthopedics 02/10/24 Diazo Technician Relationship Specialty Start Date End Date Chema Perry MD [address] [place], [place] [address]501 PCP - General Internal Medicine 04/11/22 Stephanie Brush MD [address] [facility] [address] Referring Ophthalmology 07/23/23 Porfirio Carreon [address] [facility] 2 [place] [phone] Referring Orthopedics 02/10/24 Diazo Technician Relationship Specialty Start Date End Date Chema Perry MD [address] [place] [address] PCP - General Internal Medicine 04/11/22 Stephanie Brush MD [address] [facility] [place] [address] Referring Ophthalmology 07/23/23 Porfirio Carreon [address] [place] [phone] Referring Orthopedics 02/10/24 Diazo Technician Relationship Specialty Start Date End Date Chema Perry MD [address] [facility] [place] [address] PCP - General Internal Medicine 04/11/22 Stephanie Brush MD [address] [facility] 692861 Referring Ophthalmology 07/23/23 Porfirio Carreon [address] [place] [phone] Referring Orthopedics 02/10/24 Diazo Technician Relationship Specialty Start Date End Date Chema Perry MD [address] [place], [place] 835851 PCP - General Internal Medicine 04/11/22 Stephanie Brush MD [address] [facility] [place] [address] Referring Ophthalmology 07/23/23 Porfirio Carreon [address] [place] [phone] Referring Orthopedics 02/10/24 Diazo Technician Relationship Specialty Start Date End Date Chema Perry MD [address] [place] [address] PCP - General Internal Medicine 04/11/22 Stephanie Brush MD [address] [facility] [place] [address] Referring Ophthalmology 07/23/23 Porfirio Carreon [address] [place] [address] Referring Orthopedics 02/10/24 Diazo Technician Relationship Specialty Start Date End Date Chema Perry MD [address] [place] [address] PCP - General Internal Medicine 04/11/22 Stephanie Brush MD [address] [facility] [place] [address] Referring Ophthalmology 07/23/23 Porfirio Carreon [address] [place] [phone] Referring Orthopedics 02/10/24 Diazo Technician Relationship Specialty Start Date End Date Chema Perry MD [address] [place] [address] PCP - General Internal Medicine 04/11/22 Stephanie Brush MD [address] [facility] [place] [address] Referring Ophthalmology 07/23/23 Porfirio Carreon [address] [place] [phone] Referring Orthopedics 02/10/24 Diazo Technician Relationship Specialty Start Date End Date Chema Perry MD [address] [place] [address] PCP - General Internal Medicine 04/11/22 Stephanie Brush MD [address] [facility] [place] [address] Referring Ophthalmology 07/23/23 Porfirio Carreon [address] [facility] 2 [place] [phone] Referring Orthopedics 02/10/24 [place] [address] [place] [address] Terrazzo Worker Cardiology 08/03/24 Diazo Technician Relationship Specialty Start Date End Date Chema Perry MD [address] [place] [address] PCP - General Internal Medicine 04/11/22 Stephanie Brush MD [address] [facility] [place] [address] Referring Ophthalmology 07/23/23 Porfirio Carreon [address] [facility] 2 [place] [phone] Referring Orthopedics 02/10/24 [place] [address] [place] [address] Terrazzo Worker Cardiology 08/03/24 Diazo Technician Relationship Specialty Start Date End Date Chema Perry MD [address] [place], [place] 343611 PCP - General Internal Medicine 04/11/22 Stephanie Brush MD [address] [place], [place] 3[address] Referring Ophthalmology 07/23/23 Porfirio Carreon [address] [place] [phone] Referring Orthopedics 02/10/24 [place] [address] [place] [address] Terrazzo Worker Cardiology 08/03/24 Diazo Technician Relationship Specialty Start Date End Date Chema Perry MD [address] [place] [address] PCP - General Internal Medicine 04/11/22 Stephanie Brush MD [address] [place], [place] 376471 Referring Ophthalmology 07/23/23 Porfirio Carreon [address] [place] [phone] Referring Orthopedics 02/10/24 [place] [address] [place] [address] Terrazzo Worker Cardiology 08/03/24 Diazo Technician Relationship Specialty Start Date End Date Chema Perry MD [address] [place] [address] PCP - General Internal Medicine 04/11/22 Stephanie Brush MD [address] [place] [address] Referring Ophthalmology 07/23/23 Porfirio Carreon [address] [facility] 2 [place] [phone] Referring Orthopedics 02/10/24 [place] [address] [place] [address] Terrazzo Worker Cardiology 08/03/24 Diazo Technician Relationship Specialty Start Date End Date Chema Perry MD [address] [place] [address] PCP - General Internal Medicine 04/11/22 Stephanie Brush MD [address] [place] [address] Referring Ophthalmology 07/23/23 Porfirio Carreon [address] [phone] Referring Orthopedics 02/10/24 [place] [address] [place] [address] Terrazzo Worker Cardiology 08/03/24 Diazo Technician Relationship Specialty Start Date End Date Chema Perry MD [address] [place] [address] PCP - General Internal Medicine 04/11/22 Stephanie Brush MD [address] [place], [place] [address] Referring Ophthalmology 07/23/23 Porfirio Carreon [address] [place] [phone] Referring Orthopedics 02/10/24 [place] [address] [place] [address] Terrazzo Worker Cardiology 08/03/24 Diazo Technician Relationship Specialty Start Date End Date Chema Perry MD [address] [place], [place] 2056[address] PCP - General Internal Medicine 04/11/22 Stephanie Brush MD [address] [place], [place] 103041 Referring Ophthalmology 07/23/23 Porfirio Carreon [address] [place] [phone] Referring Orthopedics 02/10/24 [place] [address] [place] [address] Terrazzo Worker Cardiology 08/03/24 Diazo Technician Relationship Specialty Start Date End Date Chema Perry MD [address] [place] [address] PCP - General Internal Medicine 04/11/22 Stephanie Brush MD [address] [place], [place] 972931 Referring Ophthalmology 07/23/23 Porfirio Carreon [address] [place] [phone] Referring Orthopedics 02/10/24 [place] [address] [place] [address] Terrazzo Worker Cardiology 08/03/24 Diazo Technician Relationship Specialty Start Date End Date Chema Perry MD [address] [place], [place] 971991 PCP - General Internal Medicine 04/11/22 Stephanie Brush MD [address] [place], [place] 451641 Referring Ophthalmology 07/23/23 Porfirio Carreon [address] [phone] Referring Orthopedics 02/10/24 [place] [address] [place] [address] Terrazzo Worker Cardiology 08/03/24 Diazo Technician Relationship Specialty Start Date End Date Chema Perry MD [address] [place] [address] PCP - General Internal Medicine 04/11/22 Stephanie Brush MD [address] [place], [place] 8[address] Referring Ophthalmology 07/23/23 Porfirio Carreon [address] [place] [phone] Referring Orthopedics 02/10/24 [place] [address] [place] [address] Terrazzo Worker Cardiology 08/03/24 Diazo Technician Relationship Specialty Start Date End Date Chema Perry MD [address] [place], [place] 723[address] PCP - General Internal Medicine 04/11/22 Stephanie Brush MD [address] [place], [place] 8[address]111 Referring Ophthalmology 07/23/23 Porfirio Carreon [address] [place] [phone] Referring Orthopedics 02/10/24 [place] [address] [place] [address] Terrazzo Worker Cardiology 08/03/24 Diazo Technician Relationship Specialty Start Date End Date Chema Perry MD [address] [place] [address] PCP - General Internal Medicine 04/11/22 Stephanie Brush MD [address] [place], [place] 81010691 Referring Ophthalmology 07/23/23 Porfirio Carreon [address] [place] [phone] Referring Orthopedics 02/10/24 [place] [address] [place] [address] Terrazzo Worker Cardiology 08/03/24 Diazo Technician Relationship Specialty Start Date End Date Chema Perry MD [address] [place] [address] PCP - General Internal Medicine 04/11/22 Stephanie Brush MD [address] [place], [place] 6416[address] Referring Ophthalmology 07/23/23 Porfirio Carreon [address] [phone] Referring Orthopedics 02/10/24 [place] [address] [place] [address] Terrazzo Worker Cardiology 08/03/24 Diazo Technician Relationship Specialty Start Date End Date Chema Perry MD [address] [place] [address] PCP - General Internal Medicine 04/11/22 Stephanie Brush MD [address]19 [place] [address] Referring Ophthalmology 07/23/23 Porfirio Carreon [address] [phone] Referring Orthopedics 02/10/24 [place] [address] [place], [place] 3687836 Terrazzo Worker Cardiology 08/03/24 Diazo Technician Relationship Specialty Start Date End Date Chema Perry MD [address] [place] [address] PCP - General Internal Medicine 04/11/22 Stephanie Brush MD [address] [place], [place] 5944[address] Referring Ophthalmology 07/23/23 Porfirio Carreon [address] [phone] Referring Orthopedics 02/10/24 [place] [address] [place] [address] Terrazzo Worker Cardiology 08/03/24 Diazo Technician Relationship Specialty Start Date End Date Chema Perry MD [address] [place], [place] 220171 PCP - General Internal Medicine 04/11/22 Stephanie Brush MD [address]19 [place] [address] Referring Ophthalmology 07/23/23 Porfirio Carreon [address] [facility] 2 [place] [address] Referring Orthopedics 02/10/24 [place] [address] [place] [address] Terrazzo Worker Cardiology 08/03/24 Diazo Technician Relationship Specialty Start Date End Date Chema Perry MD [address] [facility], [place] 405131 PCP - General Internal Medicine 04/11/22 Stephanie Brush MD [address] [place] [address] Referring Ophthalmology 07/23/23 Porfirio Carreon [address] [place] [phone] Referring Orthopedics 02/10/24 [place] [address] [place], [place] 995[address] Terrazzo Worker Cardiology 08/03/24 Diazo Technician Relationship Specialty Start Date End Date Chema Perry MD [address] [place] [address] PCP - General Internal Medicine 04/11/22 Stephanie Brush MD [address] [place] [address] Referring Ophthalmology 07/23/23 Porfirio Carreon [address] [facility] [facility] [address] [place] [phone] Referring Orthopedics 02/10/24 [place] [address] [place] [address] [employer] Worker Cardiology 08/03/24 Diazo Technician Relationship Specialty Start Date End Date Chema Perry MD [address] [place], [place] [address]141 PCP - General Internal Medicine 04/11/22 Stephanie Brush MD [address] [facility] [place] [address] Referring Ophthalmology 07/23/23 Porfirio Carreon [address] [facility] [address] [place] [phone] Referring Orthopedics 02/10/24 [place] [address] [place] [address] [employer] Worker Cardiology 08/03/24 Diazo Technician Relationship Specialty Start Date End Date Chema Perry MD [address] [place] [address] PCP - General Internal Medicine 04/11/22 Stephanie Brush MD [address] [facility] [place] [address] Referring Ophthalmology 07/23/23 Porfirio Carreon [address] [phone] Referring Orthopedics 02/10/24 [place] [address] [place] [address] [employer] Worker Cardiology 08/03/24 Diazo Technician Relationship Specialty Start Date End Date Chema Perry MD [address] [place], [place] 396251 PCP - General Internal Medicine 04/11/22 Stephanie Brush MD [address]19 [place], [place] 409581 Referring Ophthalmology 07/23/23 Porfirio Carreon [address] [facility] [address] [place] [phone] Referring Orthopedics 02/10/24 [place] [address] [place] [address] [employer] Worker Cardiology 08/03/24 Diazo Technician Relationship Specialty Start Date End Date Chema Perry MD [address] [place], [place] [address]991 PCP - General Internal Medicine 04/11/22 10/17/24 Chema Perry MD [address]85 [facility] [address] [place], [place] [id number] PCP - General Internal Medicine 10/18/24 Stephanie Brush MD [address]19 [place], [place] 7504[address] Referring Ophthalmology 07/23/23 Porfirio Carreon DO [address] [facility] [address] [place] [phone] Referring Orthopedics 02/10/24 [place] [address] [place], [place] [id number] [employer]ra[employer] Worker Cardiology 08/03/24 Diazo Technician Relationship Specialty Start Date End Date Chema Perry MD [address]85 [facility] [address] [place] [address] PCP - General Internal Medicine 10/18/24 Stephanie Brush MD [address]19 [place] [address] Referring Ophthalmology 07/23/23 Porfirio Carreon DO [address]373 [facility] 2 [place] [phone] Referring Orthopedics 02/10/24 [place] [address] [place], [place] 7848136 [employer] Worker Cardiology 08/03/24 Diazo Technician Relationship Specialty Start Date End Date Chema Perry MD [address] [address] PCP - General Internal Medicine 10/18/24 Stephanie Brush MD [address]19 [place], [place] 935871 Referring Ophthalmology 07/23/23 Porfirio Carreon DO [address]373 [facility] 2 [place] [phone] Referring Orthopedics 02/10/24 [place] [address] [place] [address] Terrazzo Worker Cardiology 08/03/24 Diazo Technician Relationship Specialty Start Date End Date Chema Perry MD [address], [place] [address] PCP - General Internal Medicine 10/18/24 Stephanie Brush MD 3519 [place] [address] Referring Ophthalmology 07/23/23 Porfirio Carreon DO [address] [facility] 2 [place] [phone] Referring Orthopedics 02/10/24 [place] [address] [place] [address] Terrazzo Worker Cardiology 08/03/24 Diazo Technician Relationship Specialty Start Date End Date Chema Perry MD [address] [address] PCP - General Internal Medicine 10/18/24 Stephanie Brush MD [address]19 [place] [address] Referring Ophthalmology 07/23/23 Porfirio Carreon DO [address]373 [facility] [place] [phone] Referring Orthopedics 02/10/24 [place] [address] [place] [address] Terrazzo Worker Cardiology 08/03/24 Diazo Technician Relationship Specialty Start Date End Date Chema Perry MD [address] [address] PCP - General Internal Medicine 10/18/24 Stephanie Brush MD [address]19 [place], [place] 500641 Referring Ophthalmology 07/23/23 Porfirio Carreon DO [address] [facility] [address] [place] [phone] Referring Orthopedics 02/10/24 [place] [address] [place], [place] [phone] Terrazzo Worker Cardiology 08/03/24 Diazo Technician Relationship Specialty Start Date End Date Chema Perry MD [address] [address]171 PCP - General Internal Medicine 10/18/24 Stephanie Brush MD [address]19 [place], [place] 187281 Referring Ophthalmology 07/23/23 Porfirio Carreon DO [address] [facility] 2 [place] [phone] Referring Orthopedics 02/10/24 [place] [address] [place] [address] Terrazzo Worker Cardiology 08/03/24 Diazo Technician Relationship Specialty Start Date End Date Chema Perry MD [address] [address] PCP - General Internal Medicine 10/18/24 Stephanie Brush MD [address]19 [place], [place] 583691 Referring Ophthalmology 07/23/23 Porfirio Carreon DO [address] [facility] [address] [place] [phone] Referring Orthopedics 02/10/24 [place] [address] [place] [address] [employer]ra[employer] Worker Cardiology 08/03/24 Diazo Technician Relationship Specialty Start Date End Date Chema Perry MD [address] [address] PCP - General Internal Medicine 10/18/24 Stephanie Brush MD [address]19 [place], [place] [address]151 Referring Ophthalmology 07/23/23 Porfirio Carreon DO [address] [facility] [address] [place] [phone] Referring Orthopedics 02/10/24 [place] [address] [place] [address] [employer]razzo Worker Cardiology 08/03/24 Diazo Technician Relationship Specialty Start Date End Date Chema Perry MD [address] [address] PCP - General Internal Medicine 10/18/24 Stephanie Brush MD 3519 [place] [address] Referring Ophthalmology 07/23/23 Porfirio Carreon DO [address]373 [facility] 2 [place] [phone] Referring Orthopedics 02/10/24 [place] [address] [place] [address] [employer]ra[employer] Worker Cardiology 08/03/24 Diazo Technician Relationship Specialty Start Date End Date Chema Perry MD [address] [address] PCP - General Internal Medicine 10/18/24 Stephanie Brush MD [address]19 [place] [address] Referring Ophthalmology 07/23/23 Porfirio Carreon DO [address]373 [facility] 2 [place] [phone] Referring Orthopedics 02/10/24 [place] [address] [place] [address] Terrazzo Worker Cardiology 08/03/24 Diazo Technician Relationship Specialty Start Date End Date Chema Perry MD [address] [address] PCP - General Internal Medicine 10/18/24 Stephanie Brush MD [address]19 [place] [address] Referring Ophthalmology 07/23/23 Porfirio Carreon DO [address] [facility] 2 [place] [phone] Referring Orthopedics 02/10/24 [place] [address] [place] [address] [employer]ra[employer] Worker Cardiology 08/03/24 Diazo Technician Relationship Specialty Start Date End Date hCema Perry MD [address]85 [facility] [address] [place] [address] PCP - General Internal Medicine 10/18/24 Stephanie Brush MD [address]19 [place] [address] Referring Ophthalmology 07/23/23 Porfirio Carreon DO [address] [facility] 2 [place] [phone] Referring Orthopedics 02/10/24 [place] [address] [place] [address] [employer] Worker Cardiology 08/03/24 Team Status: Active Member Role [...] 2024 End: October 22, 2024 Sandra Vincent SALES AND LEASING CONSULTANT, SALES AND LEASING CONSULTANT-C Attending Provider Active Start: October 22, 2024 [...] November 09, 2024 End: November 09, 2024 Diazo Technician Relationship Specialty Start Date End Date Chema Perry MD 168 [facility] [address] [place], [place] [address] PCP - General Internal Medicine 10/18/24 Stephanie Brush MD [address]19 [place], [place] 220981 Referring Ophthalmology 07/23/23 Porfirio Carreon DO [address]373 [facility] 2 [place] [phone] Referring Orthopedics 02/10/24 [place] [address] [place] [address] [employer]ra[employer] Worker Cardiology 08/03/24 Diazo Technician Relationship Specialty Start Date End Date Chema Perry MD [address]84 [facility] [address] [place] [address] PCP - General Internal Medicine 10/18/24 Stephanie Brush MD [address]19 [place], [place] [address] Referring Ophthalmology 07/23/23 Porfirio Carreon DO [address] [facility] [address] [place] [phone] Referring Orthopedics 02/10/24 [place] [address] [place], [place] [phone] [employer]ra[employer] Worker Cardiology 08/03/24 Diazo Technician Relationship Specialty Start Date End Date Chema Perry MD [address] [address] PCP - General Internal Medicine 10/18/24 Stephanie Brush MD [address]19 [place], [place] 3[address] Referring Ophthalmology 07/23/23 Porfirio Carreon DO [address] [facility] [address] [place] [phone] Referring Orthopedics 02/10/24 [place] [address] [place] [address] Terrazzo Worker Cardiology 08/03/24 Diazo Technician Relationship Specialty Start Date End Date Chema Perry MD [address]85 [facility] [address] [place] [address] PCP - General Internal Medicine 10/18/24 Stephanie Brush MD [address] [place] [address] Referring Ophthalmology 07/23/23 Porfirio Carreon DO [address] [facility] [address] [place] [phone] Referring Orthopedics 02/10/24 [place] [address] [place] [address] Terrazzo Worker Cardiology 08/03/24 Team Status: Active Member Role [...] section and content) DATE CREATED AUTHOR 11/01/2024 [facility] DATE CREATED AUTHOR AUTHOR'S ORGANIZ ATION 12/01/2024 [facility] DATE CREATED AUTHOR AUTHOR'S ORGANIZ ATION 01/30/2025 [facility] DATE CREATED AUTHOR AUTHOR'S ORGANIZ ATION 02/04/2025 [facility] FOR RECORDS PERTAINING TO PATIENTS WHO [...] BE BASED ON THE PRIMARY CLINICAL RECORDS. [employer] [facility] provides no warranty or guarantee of the accuracy or completeness of information in this document.
--- OUTSIDE RECORDS SUMMARY | 2025-02-06 11:12 | XMS RPT_ITS | CCD ---
Author Organization [facility]iniSyne Care Team Providers Care Sorter Packer Name Role Phone Parvin COHEN, Bryant Sandoval Primary Care Provider [phone] Richard, Dr. Arun Muller Primary Care Provider Richard, Dr. Arun Muller Referring Provider Melisa DANCE ENTERTAINER, DANCE ENTERTAINER-C Sandra Attending Provider [phone] Dr. Kinza Laughlin Emergency Provider Dr. Luh [...] Richard, Dr. Arun Muller Referring Provider Melisa DANCE ENTERTAINER, DANCE ENTERTAINER-C Sandra Attending Provider Richard, Dr. Arun Muller Primary Care Provider Richard, Dr. Arun Muller Referring Provider Dr. Malachi Caal Attending Provider Melisa DANCE ENTERTAINER, DANCE ENTERTAINER-C Sandra Referring Provider [phone] Chema Perry MD Primary Care Provider [phone] Dr. Arun Ramos Chi Primary Care Provider Charity Dove Attending Provider Unavailable Dr. Chema Perry Attending Provider [phone] Dr. Arun Ramos Chi Referring Provider Dr. Malachi Caal Attending Provider Dr. Chema Perry Primary Care Provider Dr. Chema Perry Referring Provider [phone] Dr. James Elizabeth Attending Provider Melisa BROWN, BURAK Flores Attending Provider [phone] Adrian VALENCIA, PA Phillip Attending Provider Forrest Ortiz Attending Provider Unavailable Dr. Chema Perry Attending Provider 1([facility]) Dr. Rolando Griffith Attending Provider 1([facility])[phone] Sarbjit Kraus Attending Provider [phone] Dr. Chema Perry Primary Care Provider Dr. Chema Perry Primary Care Provider Dr. Chema Perry Attending Provider [phone] Lashonda VALENCIA, ERIK Vaughan Attending Provider [phone] Dr. Chema Perry Primary Care Provider Dr. Chema Perry Referring Provider 1([facility]) Chema Perry MD Primary Care Provider [phone] Dr. Chema Perry Primary Care Provider Dr. Chema Perry Referring Provider 1([facility])347 Lashonda VALENCIA PA Jd Vaughan Attending Provider [...] Provider Dr. Chema Perry Attending Provider Melisa DANCE ENTERTAINER, DANCE ENTERTAINER-C Sandra Attending Provider Dr. Chema Perry Primary Care Provider Dr. Chema Perry Attending Provider Dr. Chema Perry Referring Provider ERIK Alonso Attending Provider ERIK Jamison Attending Provider Dr. Rolando Griffith Attending Provider ERIK Alonso Attending Provider Roseann VALENCIA, PA Jerri Vaughan Referring Provider Dr. Chema Perry Primary Care Provider Dr. Chema Perry Referring Provider Lashonda VALENCIA PA Jd Vaughan Attending Provider Melisa BROWN, DANCE ENTERTAINER-C Sandra Attending Provider Roseann VALENCIA, PA Jerri Vaughan Attending Provider Dr. Chema Perry Attending Provider Dr. Rolando Griffith Attending Provider Roseann VALENCIA, PA Jerri Vaughan Referring Provider Chema Perry MD Primary Care Provider [phone] Chema Perry Primary Care Provider Dr. Chema Perry Attending Provider Dr. Chema Perry Referring Provider Dr. Malachi Caal Attending Provider Dr. Chema Perry Primary Care Provider Dr. Chema Perry Attending Provider Dr. Chema Perry Referring Provider Dr. Malachi Caal Attending Provider Kings BROWN, DANCE ENTERTAINER-C Tamiko Attending Provider Dr. Chema Perry Primary Care Provider Dr. Chema Perry Attending Provider Dr. Vincent Smart Attending Provider Chema Perry MD Primary Care Provider [phone] Porfirio Carreon Unavailable Stephanie Brush MD Unavailable Sourav Marcial MD Unavailable Chema Perry MD Primary Care Provider Porfirio Carreon DO Unavailable Chace COHEN, Chema Vaughan Primary Care Provider Chace COHEN, Dr. Bear Primary Care Provider [phone] Chace COHEN, Dr. Bear Referring Provider Dr. Christopher Turk DO Attending Provider Chace COHEN, Dr. Bear Attending Provider Nacho COHEN, Dr. Marshall Attending Provider Dr. Susan Emery DO Attending Provider Dr. Susan Emery DO Emergency Provider Melisa [...] Unavailable CHACE, CHEMA M Primary Care Unavailable [facility], ANILA Referring Unavailable [facility], ANILA Attending Unavailable CHACE, CHEMA M Primary Care Unavailable CHRISTOPHER FULTON Attending Unavailable [facility], ANILA Referring Unavailable CHACE, CHEMA M Primary Care Unavailable DUNG, QARAB Referring Unavailable CHACE, CHEMA M Primary Care Unavailable [facility], [facility] Attending Unavailable CHACE, CHEMA M Primary Care Unavailable DUNG, QARAB Referring Unavailable CHACE, CHEMA M Primary Care Unavailable [facility], ANILA Referring Unavailable DUNG, QARAB Attending Unavailable CHACE, CHEMA M Primary Care Unavailable [facility], ANILA Referring Unavailable CHACE, CHEMA M Primary Care Unavailable [facility], ANILA Referring Unavailable [facility], ANILA Admitting Unavailable [facility], [facility] Attending Unavailable CHACE, CHEMA M Primary Care Unavailable [facility], [facility] Referring Unavailable CHACE, CHEMA M Primary Care Unavailable IZABELLA QUILES Attending Unavailable SUSAN SRINIVASAN Referring Unavailable CHACE, CHEMA M Primary Care Unavailable QUEENER, DENICE Referring Unavailable CHACE, CHEMA M Primary Care Unavailable DENICE JACOBS Attending Unavailable CHACE, CHEMA M Primary Care Unavailable LAISHA LIZARRAGA Referring Unavailable LAISHA LIZARRAGA Attending Unavailable CHACE, CHEMA M Primary Care Unavailable [facility], ANILA Referring Unavailable CHACE, CHEMA M Primary Care Unavailable [facility], [facility] Attending Unavailable SUSAN SQUIRES Referring Unavailable CHACE, CHEMA M Primary Care Unavailable [facility], ANILA Referring Unavailable CHACE, CHEMA M Primary [...] Unavailable CHACE, CHEMA M Primary Care Unavailable [facility], ANILA Admitting Unavailable DE PAZ, ANILA Attending Unavailable CHACE, CHEMA M Primary Care Unavailable [facility] Attending Unavailable DENICE JACOBS Referring Unavailable CHACE, CHEMA M Primary Care Unavailable Chace COHEN, Dr. Bear Primary Care Provider [phone] Dr. Isma Bustamante DO Emergency Provider [phone] Chace, Chema Referring Unavailable Chace, Chema Attending [...] Care Unavailable Chace, Chema Attending Unavailable Nacho, [place] Attending Unavailable Chace, Chema Attending Unavailable Chace, [...] Attending Unavailable Chace, Chema Referring Unavailable Nacho, [place] Attending Unavailable Chace, Chema Primary Care Unavailable Syed Leonard Attending Unavailable Chace, Chema Referring Unavailable Borruso, Christopher Attending Unavailable Chace, Chema Primary Care Unavailable Chace, Chema Attending Unavailable Chace, Chema Primary Care Unavailable Chace, Chema Referring Unavailable Chace, Chema Primary Care Unavailable Melsia BROWN, Sandra Attending Unavailable Chace, Chema Referring Unavailable Chace, Chema Primary Care Unavailable Jerri Jamison Attending Unavail able Chace, Chema Referring Unavailable Chace, Chema Attending Unavailable Chace, Chema Primary Care Unavailable Allergies Allergy Classification Reported Allergen(s) Allergy Type Date of Onset Reaction(s) Facility Acetaminophen / oxyCODONE (1 source) Acetaminophen / oxyCODONE Drug Allergy 08-09-20 20 Mental Status Change [facility] Anti-Epileptic Agents (1 source) lamoTRIgine Drug Allergy 08-09-20 20 Swelling [facility] Doxycycline (1 source) Doxycycline Drug Allergy 08-09-20 Vomiting [facility] Latex (1 source) Latex Substance Allergy 02-15-20 Rash [facility] NSAIDs (1 source) Diclofenac Drug Allergy 07-17-20 15 Other: See Comments [facility] Opioid Agonists (2 sources) oxyCODONE Drug Allergy 11-08-19 Mental Status Change, Other: See Comments [facility] Quinolones (antibiotic) (1 source) moxifloxacin Drug Allergy 08-09-20 Mental Status Change [facility] zolpidem (1 source) zolpidem Drug Allergy 08-09-20 Mental Status Change [facility] (20 sources) Acetaminophen / oxyCODONE; Translations: [OXYCODONE-ACETAMIN OPHEN] Drug Allergy 08-09-20 Mental Status Change [facility] (20 sources) Adhesive agent; Translations: [ADHESIVE] Drug Allergy 02-24-20 Other: See Comments [facility] (20 sources) Diclofenac; Translations: [DICLOFENAC SODIUM] Drug Allergy 07-17-20 Other: See Comments [facility] (4 sources) diphenhydrAMINE Drug Allergy 05-20-20 16 Unknown, Other: See Comments [facility] (20 sources) Doxycycline; Translations: [DOXYCYCLINE] Drug Allergy 08-09-20 Vomiting [facility] (20 sources) lamoTRIgine; Translations: [LAMOTRIGINE] Drug Allergy 08-09-20 Swelling [facility] (20 sources) Latex; Translations: [LATEX] Drug Allergy 02-15-20 Rash [facility] (20 sources) moxifloxacin; Translations: [MOXIFLOXACIN] Drug Allergy 08-09-20 Mental Status Change [facility] (20 sources) oxyCODONE; Translations: [OXYCODONE] Drug Allergy 06-28-20 Mental Status Change [facility] Comment on above: Nightmares, Suicidal Ideation (20 sources) Propoxyphene; Translations: [PROPOXYPHENE] Drug Allergy 11-08-19 Mental Status Change, Other: See Comments [facility] (20 sources) zolpidem; Translations: [ZOLPIDEM] Drug Allergy 08-09-20 Mental Status Change [facility] (20 sources) Adhesive Tape-Silicones; Translations: [ADHESIVE TAPE-SILICONES] Drug Allergy 02-24-20 Unknown [facility] (20 sources) Propoxyphene N-Acetaminophen; Translations: [PROPOXYPHENE N-ACETAMINOPHEN] Drug Allergy 02-09-20 Other: See Comments [facility] (20 sources) Acetaminophen Drug Allergy 11-08-19 Other [facility] (20 sources) moxifloxacin; Translations: [moxifloxacin HCl] Drug Allergy 11-08-19 Other [facility] (20 sources) Propoxyphene; Translations: [propoxyphene napsylate] Drug Allergy 11-08-19 Other [facility] (20 sources) zolpidem; Translations: [zolpidem tartrate] Drug Allergy 11-08-19 Other [facility] (20 sources) Adhesive agent Drug Allergy 02-24-20 Other: See Comments [facility] (4 sources) HYDROcodone Drug Allergy 10-23-19 [facility] Comment on above: Nightmares, Suicidal Ideation (1 source) Acetaminophen Drug Allergy 02-04-20 [facility] Repository (1 source) Doxycycline Drug Allergy 02-04-20 25 [facility] Repository (1 source) HYDROcodone Drug Allergy 02-04-20 [facility] Repository (1 source) lamoTRIgine Drug Allergy 02-04-20 [facility] Repository (1 source) Latex Drug allergy (disorder) 09-18-19 25 [facility] Repository (1 source) oxyCODONE Drug Allergy 02-04-20 [facility] Repository Medications Current Medications Medication Drug Class(es) [...] 1,000 mcg intramuscularly once every month. Vitamin K-45-juonlcqvdwikrc 07/19/2022 Suspended Start: 07-19-2022 inject 1000 ug by in tramuscular injection every month DODEX 1,000 mcg/mL Inject 1,000 mcg intramuscularly once every month. Vitamin J-84-kituuadxhcssby 07/19/2022 Active Start: 07-19-2022 DODEX 1,000 mc [...] FLUTICASONE,) 50 mcg/actuation nasal spray Use 1 Mineral in each nostril once daily. 09/14/2024 Discontinued [...] 12 % lotion 06/13/2022 Active lactobacillus acidophilus [id number] unt oral capsule (20 sources) Start: 03-27-2021 [...] syringes BD EC LIPSE Active 0 .[facility] April 11, 2023 12:00am Bd SYR/leticia Eclipse 3ml #5782 Start: 04-11-2023 syringes BD EC LIPSE Active 0 .[facility] April 10, 2023 11:00pm Bd SYR/leticia Eclipse 3ml #5782 Start: 04-11-2023 syringes BD EC LIPSE Active 0 .ROUTE [facility] April 10, 2023 11:00pm Bd SYR/leticia Eclipse 3ml #5782 Start: 04-11-2023 syringes BD EC LIPSE Active 0 .ROUTE [facility] April 11, 2023 12:00am Bd SYR/leticia Eclipse [...] 24, 2025 10:45am Can be administered at [facility] Start: 09-18-2023 End: 06-05-2024 Cyanocobalamin [...] System Stimulant, Methylxanthine Start: 02-15-2022 End: 04-25-2022 Jvrfiwykhcqvv-Wfcm-Gutscczql e (Midol Complete) 500-60-15 mg Tablet Discontinued {tbl} February 15, 2022 12:00am April 25, 2022 11:40am acetaminophen 500 mg / pamabrom 25 mg / pyrilamine maleate 15 mg oral tablet (20 sources) Start: 02-15-2022 End: 04-25-2022 Ppqkrqmgzihzn-Xnrpiwgl-Qarhq am (Pamprin Multi-Symptom) 500-25-15 mg Tablet Discontinued [...] D3) 50 mcg (2,000 unit) capsule Discontinued 39113 U PO EVERY MONTH August 02, 2020 [...] 2025 10:45am Can be administered at [facility] [place] Start: 04-01-2024 inject 1000 ug by in tramuscular injection every month Cyanocobalamin (Vitamin B-12) 1,000 mcg/mL solution Active 1000 ug IM EVERY MONTH April 01, 2024 12:00am Can be administered at [facility] [place] D marlo (20 sources) Start: 03-20-2022 End: [...] Take by mouth as nee ded. Ipratropium [place] 42 mcg (0.06 %) spray,non-aerosol (4 sources) Start: 10-08-2023 End: 03-16-2024 Ipratropium [place] 42 mcg (0.06 %) spray,non-aerosol Discontinued 2 [...] Comment on above: Take 1 tablet by [facility] one time only for 1 dose. Please [...] hydrochloride 10 mg oral tablet (20 sources) I-retnkn-I-aspartat e Receptor Antagonist Start : 04-10 End: 06-08 take 1 tablet by mouth twice daily Memantine 10 mg tablet Discontinued 10 mg PO TWICE A DAY September 18, 2023 11:39am June 08, 2024 9:43am methylPREDNISolone 4 mg oral tablet (16 sources) Corticosteroid Start : 03-16 End: 04-05 take 1 tablet by mouth once Methylprednisolone (Medrol (Devna)) 4 mg tablets,dose pack Discontinued 0 PO [...] Coronary atherosclerosis; Translations: [Atherosclerotic heart disease of [place] coronary artery without angina pectoris] Onset: 1 [...] sources) Long-term current use of anticoagulant; 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] 03-23-2022 Episodic Other aftercare (20 sources) Surgical follow-up; Translations: [Encounter for removal of sutures] 07-24-2022 Episodic Other aftercare (4 sources) Encounter for removal of sutures; Translations: [Encounter for removal of sutures] Episodic Other aftercare (4 sources) Drug therapy finding; Translations: [MCFP (current) use of anticoagulants] 06-15-2024 Episodic Other [...] Department Summary on 02-03-2025 Emergency Department Summary [facility] Records Department [address] [place] [address] Emergency Department Summary 02/03/25 MR#: [id number] Acct: [id number] Name: LAUREN ALCARAZ Rep #: [id number] : 1940 84 From: Isma Bustamante DO [...] for evaluation. She denies any other injury [facility] Medical History (Updated 02/03/25 @ 07:58 by [...] artery ( 1989) Atherosclerotic heart disease of [place] coronary artery without angina pectoris Essential hypertension [...] Sob /Or Wheezing #180 mL syringes BD [facility] 04/11/23 Unknown History latanoprost 0.005 % eye [...] 10/14/24 Unknown (more content not included)... Normal [facility] Extremity Upper without Cont raon 02-03-2025 Extremity Upper without Contra [facility] Imaging Services [address] [place] [address] Extremity Upper without Contra MR#: [id number] Acct: [id number] Name: LAUREN ALCARAZ Rep #: [id number] : 1940 F 84 From: Izzy cabrera MD PCP: Dr. Chema Perry MD Status: REG ER Study: Extremity Upper without Contra Date of Exam: 0 02/03/25 Exam# [id number] Ordering Dr: Isma Bustamante DO PROCEDURE: EXTREMITY [...] changes of the humeral head. Reading Location: [place] [address] CC: Dr. Chema Perry MD; Isma Bustamante DO Insurance Assistant: Signed Normal [facility] Shoulder min 2 Viewson 02-03 Shoulder min 2 Views [facility] Imaging Services [address] [place] [address] Shoulder min 2 Views MR#: [id number] Acct: [id number] Name: LAUREN ALCARAZ Rep #: [id number] : 1940 F 84 From: Izzy cabrera MD PCP: Dr. Chema Perry MD Status: REG ER Study: Shoulder min 2 Views Date of Exam: 02/03/25 Exam# [id number] Ordering Dr: Isma Bustamante DO PROCEDURE: SHOULDER [...] changes of the humeral head. Reading Location: [place] [address] CC: Dr. Chema Perry MD; Isma Bustamante DO Insurance Assistant: Signed Normal [facility] Inital Evaluation (1) - PTon 01-12-2025 Inital Evaluation (1) - PT [facility] Physical Therapy Health[address] [place] [address] / REHABILITATION SERVICES INITIAL EVALUATION MR#: [id number] Acct: [id number] Name: LAUREN ALCARAZ Rep #: [id number] : 1940 84 From: Gunnar Graves PT, ATC Referring Dr.: Dr. Chema Perry MD Status: R EG RCR Insurance: MEDICARE PART A B R [id number] [id number] Patient's Visit Information Visit Information Visit Information: [...] Pt reports she has had PT at [facility] residential and with home health at home which [...] to be FAXED BACK to us at [phone] for Medicare purposes. For Medicare only, by signing this I certify the plan of care. Please let me know if there are questions or concerns regarding this plan of care. Physician Signature: Date: 01/12/25 1506 CC: Dr. Chema Perry MD [facility] Signed Normal [facility] Inital Evaluation (1) - PT [facility] Physical Therapy Health[address] [place] [address] / REHABILITATION SERVICES INITIAL EVALUATION MR#: [id number] Acct: [id number] Name: LAUREN ALCARAZ Rep #: [id number] : 1940 84 From: Gunnar Graves PT, ATC Referring Dr.: Dr. Chema Perry MD Status: R EG RCR Insurance: MEDICARE PART A B [id number] [id number] Patient's Visit Information Visit Information Visit Information: [...] Pt reports she has had PT at [facility] residential and with home health at home which [...] to be FAXED BACK to us at [phone] for Medicare purposes. For Medicare only, by signing this I certify the plan of care. Please let me know if there are questions or concerns regarding this plan of care. Physician Signature: Date: 01/12/25 1505 CC: Dr. Chema Perry MD [facility] Signed [facility] CNOVon 12-23-2024 CNOV [facility] CNOVon 12-20-2024 CNOV [facility] CNOVon 12-19-2024 CNOV [facility] CNOVon 12-09-2024 CNOV [facility] CNTHERAPY OT/PT/Speech Visit ( [facility]) LAUREN ALCARAZ ([id number]) 1940 F Date Time Provider Department 11/26/24 4:[address] [facility] Date Time Provider Department [place] 11/26/2024 4:15 PM [id number], DIANDRA [facility] Reason for Visit: OT [...] 1,000 mcg intramuscularly once every month. Vitamin L-55-qnzezkqwsuytvo - ammonium lactate (LAC-HYDRIN) 12 % lotion [...] every 6 months. Last injection November 2020 [facility] CNTHERAPYon 11-19-2024 CNTHERAPY [facility] ([id number]) 1940 F Date Time Provider Department 11/19/24 4:[address] [facility] Date Time Provider Department [place] 11/19/2024 4:15 PM [id number], DIANDRA [facility] Reason for Visit: Occupational Therapy [504] Primary [...] 1,000 mcg intramuscularly once every month. Vitamin W-32-eyhtdpicazwexd - ammonium lactate (LAC-HYDRIN) 12 % lotion [...] 6 months. Last injection November 2020 Normal [facility] CASE MANAGEMon 11-17-2024 CASE MANAGEM Normal [facility] CASE MANAGEM Normal [facility] CNDSon 11-17-2024 CNDS Normal [facility] ANES POSTPROC EVALon 025 ANES POSTPROC EVAL Normal [facility] ANES PRE-OPon 11-16-2024 ANES PRE-OP Normal [facility] CASE MGT INIT ASSESon 2024 CASE MGT INIT ASSES Normal [facility] CBC panel Auto (Bld)on 11-16 Erythrocyte distribution width (RBC) [Ratio] 13.7 % Normal 11.5-15.0 [facility] Comment on above: Order Comment: Speci men Type: BLOOD SPECIMENOrdering Facility: [facility] Address: [address] [place] [address] Performed By: #### 5 8410-2 ####[facility] LABCLIA [id number] [place] [address] [place] Hematocrit (Bld) [Volume fraction] 36.3 % Normal 36.0-46.0 [facility] Comment on above: Order Comment: Speci men Type: BLOOD SPECIMENOrdering Facility: [facility] Address: [address] [place] [address] Performed By: #### 5 8410-2 ####[facility] LABIA [id number] [place] [address] [place] Hemoglobin (Bld) [Mass/Vol] 11.6 g/dL Normal 11.5-15.5 [facility] Comment on above: Order Comment: Speci men Type: BLOOD SPECIMENOrdering Facility: [facility] Address: [address] [place] [address] Performed By: #### 5 8410-2 ####[facility] [id number] [place] [address] [place] MCH (RBC) [Entitic mass] 29.5 pg Normal 26.0-34.0 [facility] Comment on above: Order Comment: Speci men Type: BLOOD SPECIMENOrdering Facility: [facility] Address: [address] [place] [address] Performed By: #### 5 8410-2 ####[facility] [id number] [place] [address] [place] MCHC (RBC) [Mass/Vol] 32.0 g/dL Normal 30.5-36.0 [facility] Comment on above: Order Comment: Speci men Type: BLOOD SPECIMENOrdering Facility: [facility] Address: [address] [place] [address] Performed By: #### 5 8410-2 ####[facility] [id number] [place] [address] [place] MCV (RBC) [Entitic vol] 92.4 fL Normal 80.0-100.0 [facility] Comment on above: Order Comment: Speci men Type: BLOOD SPECIMENOrdering Facility: [facility] Address: [address] [place] [address] Performed By: #### 5 8410-2 ####[facility] LABCLIA [id number] [place] [address] [place] Nucleated RBC (Bld) [#/Vol] 10*3/uL Normal <0.01 [facility] Comment on above: Order Comment: Speci men Type: BLOOD SPECIMENOrdering Facility: [facility] Address: [address] [place] [address] Performed By: #### 5 8410-2 ####[facility] LABIA [id number] [address], [place] [address] [place] Platelet mean volume (Bld) [Entitic vol] 10.9 fL Normal 9.0-12.7 [facility] Comment on above: Order Comment: Speci men Type: BLOOD SPECIMENOrdering Facility: [facility] Address: [address] [place] [address] Performed By: #### 5 8410-2 ####[facility] LABIA [id number] [place] [id number] [place] Platelets (Bld) [#/Vol] 171 10*3/uL Normal 150-400 [facility] Comment on above: Order Comment: Speci men Type: BLOOD SPECIMENOrdering Facility: [facility] Address: [address] [place] [address] Performed By: #### 5 8410-2 ####[facility] LABCLIA [id number] [place] [id number] [place] RBC (Bld) [#/Vol] 3.93 10*6/uL Normal 3.90-5.20 [facility] Comment on above: Order Comment: Speci men Type: BLOOD SPECIMENOrdering Facility: [facility] Address: [address] [place] [address] Performed By: #### 5 8410-2 ####[facility] LABCLIA [id number] [address] [place] [address] [place] WBC (Bld) [#/Vol] 4.86 10*3/uL Normal 3.70-11.00 [facility] Comment on above: Order Comment: Speci men Type: BLOOD SPECIMENOrdering Facility: [facility] Address: [address] [place] [address] Performed By: #### 5 8410-2 ####[facility] LABCLIA [id number] [address] [place] [address] [place] Comprehensive metabolic 2000 panelon 11-16-2024 Albumin [Mass/Vol] 3.4 g/dL Low 3.9-4.9 [facility] Comment on above: Order Comment: Speci men Type: BLOOD SPECIMENOrdering Facility: [facility] Address: [address] [place] [address] Performed By: #### 2 4323-8, 2777, ####[facility] LABCLIA [id number] [place] [id number] [place] ALP [Catalytic activity/Vol] 148 U/L High 34-123 [facility] Comment on above: Order Comment: Speci men Type: BLOOD SPECIMENOrdering Facility: [facility] Address: [address] [place] [address] Performed By: #### 2 4323-8, 2777-1, ####[facility] LABCLIA [id number] [address], [facility]95 [place] ALT [Catalytic activity/Vol] 27 U/L Normal 7-38 [facility] Comment on above: Order Comment: Speci men Type: BLOOD SPECIMENOrdering Facility: [facility] Address: [address] [place] [address] Performed By: #### 2 4323-8, 27771, ####[facility] LABCLIA [id number] [address] [place] [address] [place] Anion gap [Moles/Vol] 10 mmol/L Normal 8-15 [facility] Comment on above: Order Comment: Speci men Type: BLOOD SPECIMENOrdering Facility: [facility] Address: [address] [place], [place] [address] Performed By: #### 2 4323-8, 2776-08, ####[facility] LABCLIA [id number] [place] [id number] [place] AST [Catalytic activity/Vol] 25 U/L Normal 13-35 [facility] Comment on above: Order Comment: Speci men Type: BLOOD SPECIMENOrdering Facility: [facility] Address: [address] [place] [address] Performed By: #### 2 4323-8, 2776-08, ####[facility] LABCLIA [id number] [place] [address] [place] Bilirubin [Mass/Vol] 0.4 mg/dL Normal 0.2-1.3 [facility] Comment on above: Order Comment: Speci men Type: BLOOD SPECIMENOrdering Facility: [facility] Address: [address] [place] [address] Performed By: #### 2 4323-8, 2776-08, ####[facility] LABCLIA [id number] [place] [address] [place] Calcium [Mass/Vol] 8.0 mg/dL Low 8.5-10.2 [facility] Comment on above: Order Comment: Speci men Type: BLOOD SPECIMENOrdering Facility: [facility] Address: [address] [place], [place] [address] Performed By: #### 2 4323-8, 2776-08, ####[facility] LABCLIA [id number] [facility] [address] [address] [place] Chloride [Moles/Vol] 105 mmol/L Normal 98-107 [facility] Comment on above: Order Comment: Speci men Type: BLOOD SPECIMENOrdering Facility: [facility] Address: [address] [place], [place] [address] Performed By: #### 2 4323-8, 2776-08, ####[facility] LABCLIA [id number] [address] [address] [place] CO2 [Moles/Vol] 21 mmol/L Low 22-30 [facility] Comment on above: Order Comment: Speci men Type: BLOOD SPECIMENOrdering Facility: [facility] Address: [address] [place] [address] Performed By: #### 2 4323-8, 2776-08, ####[facility] LABCLIA [id number] [address] [address] [place] Creatinine [Mass/Vol] 0.75 mg/dL Normal 0.58-0.96 [facility] Comment on above: Order Comment: Speci men Type: BLOOD SPECIMENOrdering Facility: [facility] Address: [address] [place] [address] Performed By: #### 2 4323-8, 2776-08, ####[facility] LABCLIA [id number] [address] [address] [place] Creatinine and Glomerular filtration rate.predicted panel (S/P/Bld) 80 mL/min/1.73m??? Normal >=60 [facility] Comment on above: Order Comment: Speci men Type: BLOOD SPECIMENOrdering Facility: [facility] Address: [address] [place] [address] Result Comment: Brandy mated Glomerular Filtration Rate [...] GFR. Performed By: #### 2 4323-8, 27702-15, ####[facility] LABCLIA [id number] [address] [address] [place] Glucose [Mass/Vol] 156 mg/dL High 74-99 [facility] Comment on above: Order Comment: Speci men Type: BLOOD SPECIMENOrdering Facility: [facility] Address: [address] [place] [address] Result Comment: The [employer] Diabetes [employer] (ADA) provides guidance for cutoff [...] Standards of Medical Care in Diabetes 2016, [employer]. Diabetes Care. 2016.39(Suppl 1). Performed By: #### 2 4323-8, 2776-08, ####[facility] LABCLIA [id number] [address] [address] [place] Potassium [Moles/Vol] 4.8 mmol/L Normal 3.7-5.1 [facility] Comment on above: Order Comment: Speci men Type: BLOOD SPECIMENOrdering Facility: [facility] Address: [address] [place] [address] Performed By: #### 2 4323-8, 27702-15, ####[facility] LABIA [id number] [address] [address] [place] Protein [Mass/Vol] 6.0 g/dL Low 6.3-8.0 [facility] Comment on above: Order Comment: Speci men Type: BLOOD SPECIMENOrdering Facility: [facility] Address: [address] [place], [place] [address] Performed By: #### 2 4323-8, 27771, ####[facility] LABIA [id number] [place] [id number] [place] Sodium [Moles/Vol] 136 mmol/L Normal 136-144 [facility] Comment on above: Order Comment: Speci men Type: BLOOD SPECIMENOrdering Facility: [facility] Address: [address] [place], [place] [address] Performed By: #### 2 4323-8, 27702-15, ####[facility] LABIA [id number] [place] [address] [place] Urea nitrogen [Mass/Vol] 13 mg/dL Normal 7-21 [facility] Comment on above: Order Comment: Speci men Type: BLOOD SPECIMENOrdering Facility: [facility] Address: [address] [place] [address] Performed By: #### 2 4323-8, 27702-15, ####[facility] [id number] [place] [address] [place] ERCPon 11-16-2024 ERCP Normal [facility] Magnesium SerPl-mCncon 11-16 Magnesium [Mass/Vol] 1.8 mg/dL Normal 1.7-2.3 [facility] Comment on above: Order Comment: Speci men Type: BLOOD SPECIMENOrdering Facility: [facility] Address: [address] [place], [place] [address] Performed By: #### 2 4323-8, 27702-15, ####[facility] LABIA [id number] [address] [address] [place] NURSING PROGon 11-16-2024 NURSING PROG Normal [facility] NURSING PROG Normal [facility] NUTRITIONon 11-16-2024 NUTRITION Normal [facility] PT panel Coag (PPP)on 2024 INR Coag (PPP) [Relative time] 1.2 {INR} Normal 0.9-1.3 [facility] Comment on above: Order Comment: Ramirez gamez Type: BLOOD SPECIMENOrdering Facility: [facility] Address: [address] [place] [address] Result Comment: Brook min K Antagonist (VKA) Therapeutic Range: INR 2 to 3 (Target INR of 2.5)Note: For patients treated with VKA drugs, such as warfarin, the [employer] 2012 Guideline recommends [...] al. Chest 2012, 141:7S-47SNishimura RA, et al. [facility] 2017, 70: 252-289 Performed By: #### 3 4528-0, 34516-2 ####[facility] LABIA [id number] [place] [id number] [place] PT Coag (PPP) [Time] 13.3 s High 9.7-13.0 [facility] Comment on above: Order Comment: Ramirez gamez Type: BLOOD SPECIMENOrdering Facility: [facility] Address: [address] [place] [address] Performed By: #### 3 4528-0, 15705-2 ####[facility] LABIA [id number] [address] [address] [place] Phosphate SerPl-mCncon 11-16 Phosphate [Mass/Vol] 2.5 mg/dL Low 2.7-4.8 [facility] Comment on above: Order Comment: Speci men Type: BLOOD SPECIMENOrdering Facility: [facility] Address: [address] [place] [address] Performed By: #### 2 4323-8, 2777-1, 93382-3 ####[facility] LABCLIA [id number] [place] [address] [place] aPTT PPPon 11-16-2024 aPTT Coag (PPP) [Time] 34.8 s High 23.0-32.4 [facility] Comment on above: Order Comment: Speci men Type: BLOOD SPECIMENOrdering Facility: [facility] Address: [address] [place] [address] Performed By: #### 3 4528-0, 08742-2 ####[facility] LABIA [id number] [place] [address] [place] CBC panel Auto (Bld)on 11-15 Erythrocyte distribution width (RBC) [Ratio] 13.8 % Normal 11.5-15.0 [facility] Comment on above: Order Comment: Speci men Type: BLOOD SPECIMENOrdering Facility: [facility] Address: [address] [place] [address] Performed By: #### 5 8410-2 ####[facility] LABIA [id number] [place] [address] [place] Hematocrit (Bld) [Volume fraction] 35.0 % Low 36.0-46.0 [facility] Comment on above: Order Comment: Speci men Type: BLOOD SPECIMENOrdering Facility: [facility] Address: [address] [place] [address] Performed By: #### 5 8410-2 ####[facility] LABCLIA [id number] [place] [address] [place] Hemoglobin (Bld) [Mass/Vol] 10.7 g/dL Low 11.5-15.5 [facility] Comment on above: Order Comment: Speci men Type: BLOOD SPECIMENOrdering Facility: [facility] Address: [address] [place] [address] Performed By: #### 5 8410-2 ####[facility] LABIA [id number] [place] [address] [place] MCH (RBC) [Entitic mass] 28.6 pg Normal 26.0-34.0 [facility] Comment on above: Order Comment: Speci men Type: BLOOD SPECIMENOrdering Facility: [facility] Address: [address] [place] [address] Performed By: #### 5 8410-2 ####[facility] [id number] [place] [address] [place] MCHC (RBC) [Mass/Vol] 30.6 g/dL Normal 30.5-36.0 [facility] Comment on above: Order Comment: Speci men Type: BLOOD SPECIMENOrdering Facility: [facility] Address: [address] [place] [address] Performed By: #### 5 8410-2 ####[facility] [id number] [place] [address] [place] MCV (RBC) [Entitic vol] 93.6 fL Normal 80.0-100.0 [facility] Comment on above: Order Comment: Speci men Type: BLOOD SPECIMENOrdering Facility: [facility] Address: [address] [place] [address] Performed By: #### 5 8410-2 ####[facility] LABIA [id number] [place] [address] [place] Nucleated RBC (Bld) [#/Vol] 10*3/uL Normal <0.01 [facility] Comment on above: Order Comment: Speci men Type: BLOOD SPECIMENOrdering Facility: [facility] Address: [address] [place] [address] Performed By: #### 5 8410-2 ####[facility] LABCLIA [id number] [address] [place] [address] [place] Platelet mean volume (Bld) [Entitic vol] 10.5 fL Normal 9.0-12.7 [facility] Comment on above: Order Comment: Speci men Type: BLOOD SPECIMENOrdering Facility: [facility] Address: [address] [place] [address] Performed By: #### 5 8410-2 ####[facility] LABCLIA [id number] [address] [place] [address] [place] Platelets (Bld) [#/Vol] 156 10*3/uL Normal 150-400 [facility] Comment on above: Order Comment: Speci men Type: BLOOD SPECIMENOrdering Facility: [facility] Address: [address] [place] [address] Performed By: #### 5 8410-2 ####[facility] LABIA [id number] [address] [place] [address] [place] RBC (Bld) [#/Vol] 3.74 10*6/uL Low 3.90-5.20 [facility] Comment on above: Order Comment: Speci men Type: BLOOD SPECIMENOrdering Facility: [facility] Address: [address] [place] [address] Performed By: #### 5 8410-2 ####[facility] LABCLIA [id number] [address] [place] [address] [place] WBC (Bld) [#/Vol] 4.56 10*3/uL Normal 3.70-11.00 [facility] Comment on above: Order Comment: Speci men Type: BLOOD SPECIMENOrdering Facility: [facility] Address: [address] [place] [address] Performed By: #### 5 8410-2 ####[facility] LABCLIA [id number] [address] [address] [place] CNPNon 11-15-2024 CNPN Normal [facility] Comprehensive metabolic 2000 panelon 11-15-2024 Albumin [Mass/Vol] 3.8 g/dL Low 3.9-4.9 [facility] Comment on above: Order Comment: Speci men Type: BLOOD SPECIMENOrdering Facility: [facility] Address: [address] [place] [address] Performed By: #### 2 4323-8 ####[facility] LABCLIA [id number] [place] [id number] [place] ALP [Catalytic activity/Vol] 161 U/L High 34-123 [facility] Comment on above: Order Comment: Speci men Type: BLOOD SPECIMENOrdering Facility: [facility] Address: [address] [place] [address] Performed By: #### 2 4323-8 ####[facility] LABCLIA [id number] [place] [address] [place] ALT [Catalytic activity/Vol] 33 U/L Normal 7-38 [facility] Comment on above: Order Comment: Speci men Type: BLOOD SPECIMENOrdering Facility: [facility] Address: [address] [place] [address] Performed By: #### 2 4323-8 ####[facility] LABCLIA [id number] [place] [id number] [place] Anion gap [Moles/Vol] 10 mmol/L Normal 8-15 [facility] Comment on above: Order Comment: Speci men Type: BLOOD SPECIMENOrdering Facility: [facility] Address: [address] [place] [address] Performed By: #### 2 4323-8 ####[facility] LABCLIA [id number] [place] [id number] [place] AST [Catalytic activity/Vol] 29 U/L Normal 13-35 [facility] Comment on above: Order Comment: Speci men Type: BLOOD SPECIMENOrdering Facility: [facility] Address: [address] [place], [place] [address] Performed By: #### 2 4323-8 ####[facility] LABCLIA [id number] [place] [id number] [place] Bilirubin [Mass/Vol] 0.3 mg/dL Normal 0.2-1.3 [facility] Comment on above: Order Comment: Speci men Type: BLOOD SPECIMENOrdering Facility: [facility] Address: [address] [place] [address] Performed By: #### 2 4323-8 ####[facility] LABCLIA [id number] [place] [address] [place] Calcium [Mass/Vol] 8.4 mg/dL Low 8.5-10.2 [facility] Comment on above: Order Comment: Speci men Type: BLOOD SPECIMENOrdering Facility: [facility] Address: [address] [place] [address] Performed By: #### 2 4323-8 ####[facility] LABCLIA [id number] [place] [address] [place] Chloride [Moles/Vol] 106 mmol/L Normal 98-107 [facility] Comment on above: Order Comment: Speci men Type: BLOOD SPECIMENOrdering Facility: [facility] Address: [address] [place] [address] Performed By: #### 2 4323-8 ####[facility] LABCLIA [id number] [facility] [place] [id number] [place] CO2 [Moles/Vol] 22 mmol/L Normal 22-30 [facility] Comment on above: Order Comment: Speci men Type: BLOOD SPECIMENOrdering Facility: [facility] Address: [address] [place], [place] [address] Performed By: #### 2 4323-8 ####[facility] LABCLIA [id number] [place] [id number] [place] [facility] Creatinine [Mass/Vol] 0.77 mg/dL Normal 0.58-0.96 [facility] Comment on above: Order Comment: Ramirez gamez Type: BLOOD SPECIMENOrdering Facility: [facility] Address: [address] [place] [address] Performed By: #### 2 4323-8 ####[facility] [id number] [address] [facility] Creatinine and Glomerular filtration rate.predicted panel (S/P/Bld) 77 mL/min/1.73m??? Normal >=60 [facility] Comment on above: Order Comment: Ramirez gamez Type: BLOOD SPECIMENOrdering Facility: [facility] Address: [address] [place] [address] Result Comment: Brandy mated Glomerular Filtration Rate [...] actual GFR. Performed By: #### 2 4323-8 ####[facility] LABIA [id number] [place] [address] [place] Glucose [Mass/Vol] 120 mg/dL High 74-99 [facility] Comment on above: Order Comment: Ramirez gamez Type: BLOOD SPECIMENOrdering Facility: [facility] Address: [address] [place] [address] Result Comment: The [employer] Diabetes Association (ADA) provides guidance for cutoff [...] Standards of Medical Care in Diabetes 2016, [employer]. Diabetes Care. 2016.39(Suppl 1). Performed By: #### 2 4323-8 ####[facility] LABCLIA [id number] [address] [address] [place] Potassium [Moles/Vol] 4.2 mmol/L Normal 3.7-5.1 [facility] Comment on above: Order Comment: Speci men Type: BLOOD SPECIMENOrdering Facility: [facility] Address: [address] [place] [address] Performed By: #### 2 432-8 ####[facility] LABIA [id number] [address] [address] [place] Protein [Mass/Vol] 6.4 g/dL Normal 6.3-8.0 [facility] Comment on above: Order Comment: Speci men Type: BLOOD SPECIMENOrdering Facility: [facility] Address: [address] [place], [place] [address] Performed By: #### 2 432-8 ####[facility] LABIA [id number] [address] [address] [place] Sodium [Moles/Vol] 138 mmol/L Normal 136-144 [facility] Comment on above: Order Comment: Speci men Type: BLOOD SPECIMENOrdering Facility: [facility] Address: [address] [place] [address] Performed By: #### 2 4323-8 ####[facility] LABCLIA [id number] [address] [address] [place] Urea nitrogen [Mass/Vol] 16 mg/dL Normal 7-21 [facility] Comment on above: Order Comment: Speci men Type: BLOOD SPECIMENOrdering Facility: [facility] Address: [address] [place] [address] Performed By: #### 2 4323-8 ####[facility] [id number] [place] [id number] [place] HISTORY PHYSICALon HISTORY PHYSICAL Normal [facility] NURSING PROGon 11-15-2024 NURSING PROG Normal [facility] PT panel Coag (PPP)on 2024 INR Coag (PPP) [Relative time] 1.2 {INR} Normal 0.9-1.3 [facility] Comment on above: Order Comment: Speci men Type: BLOOD SPECIMENOrdering Facility: [facility] Address: [address] [place] [address] Result Comment: Brook min K Antagonist (VKA) Therapeutic Range: INR 2 to 3 (Target INR of 2.5)Note: For patients treated with VKA drugs, such as warfarin, the [employer] 2012 Guideline recommends [...] al. Chest 2012, 141:7S-47SYakov RA, et al. [facility] 2017, 70: 252-289 Performed By: #### 3 4528-0, 97886-6 ####[facility] [id number] [place] [id number] [place] PT Coag (PPP) [Time] 12.8 s Normal 9.7-13.0 [facility] Comment on above: Order Comment: Speci men Type: BLOOD SPECIMENOrdering Facility: [facility] Address: [address] [place] [address] Performed By: #### 3 4528-0, 12082-8 ####[facility] LABCLIA [id number] [place] [address] [place] TYPE + SCREENon 11-15-2024 ABO A Normal [facility] Comment on above: Order Comment: Speci men Type: BLOOD SPECIMENOrdering Facility: [facility] Address: [address] [place] [address] Performed By: #### T SCR ####[facility] BANKCLIA [id number] [place] [address] [place] Rh Nom (Bld) Positive Normal [facility] Comment on above: Order Comment: Speci men Type: BLOOD SPECIMENOrdering Facility: [facility] Address: [address] [place] [address] Performed By: #### T SCR ####[facility] BLOOD BANKCLIA [id number] [place] [address] [place] TYPE AND SCREEN EXPIRATION 11/18/2024 23:59 Normal [facility] Comment on above: Order Comment: Speci men Type: BLOOD SPECIMENOrdering Facility: [facility] Address: [address] [place] [address] Performed By: #### T SCR ####[facility] BLOOD BANKCLIA [id number] [place] [address] [place] aPTT PPPon 11-15-2024 aPTT Coag (PPP) [Time] 29.8 s Normal 23.0-32.4 [facility] Comment on above: Order Comment: Speci men Type: BLOOD SPECIMENOrdering Facility: [facility] Address: [address] [place] [address] Performed By: #### 3 4528-0, 41898-1 ####[facility] LABCLIA [id number] [place] [address] [place] CNPNon 11-12-2024 CNPN Normal [facility] CNTHERAPYon 03-28-2025 CNTHERAPY OT/PT/Speech Visit ( [facility]) LILLIANLAUREN Dinero ([id number]) 1940 F Date Time Provider Department 11/12/24 3:[address] [facility] Date Time Provider Department [place] 11/12/2024 3:30 PM [id number], DIANDRA [facility] Med C Reason for Visit: Occupational Therapy [...] 1,000 mcg intramuscularly once every month. Vitamin T-81-tfobudfocmylhg - ammonium lactate (LAC-HYDRIN) 12 % lotion [...] every 6 months. Last injection November [address] [facility] [address] ABD/PEL W IVCONon 025 CT ABD/PEL W IVCON Invalid Interpretation Code [facility] Chest PA and Lateralon 11-09 Chest PA and Lateral [facility] Imaging Services [address] [place] [address] Chest PA and Lateral MR#: [id number] Acct: [id number] Name: LAUREN ALCARAZ Rep #: [id number] : 1940 F 84 From: Harjinder Doherty MD PCP: Dr. Chema Perry MD Status: [facility] CLI Study: Chest PA and Lateral Date of Exam: 11/09/24 Exam# [id number] Ordering Dr: Chema Perry MD EXAM: XR [...] Lateral IMPRESSION: Suggestion of COPD. Reading Location: [facility] CC: Dr. Chema Perry MD Insurance Assistant: Signed Normal [facility] CBC panel Auto (Bld)on 11-08 Erythrocyte distribution width (RBC) [Ratio] 14.0 % Normal 11.5-15.0 [facility] Comment on above: Order Comment: Speci men Type: BLOOD SPECIMENOrdering Facility: [facility] Address: [address] [place] [address] Performed By: #### 5 8410-2 ####[facility] [id number] [place] [address] [place] Hematocrit (Bld) [Volume fraction] 33.8 % Low 36.0-46.0 [facility] Comment on above: Order Comment: Speci men Type: BLOOD SPECIMENOrdering Facility: [facility] Address: [address] [place] [address] Performed By: #### 5 8410-2 ####[facility] [id number] [place] [address] [place] Hemoglobin (Bld) [Mass/Vol] 10.7 g/dL Low 11.5-15.5 [facility] Comment on above: Order Comment: Speci men Type: BLOOD SPECIMENOrdering Facility: [facility] Address: [address] [place] [address] Performed By: #### 5 8410-2 ####[facility] [id number] [place] [address] [place] MCH (RBC) [Entitic mass] 29.6 pg Normal 26.0-34.0 [facility] Comment on above: Order Comment: Speci men Type: BLOOD SPECIMENOrdering Facility: [facility] Address: [address] [place] [address] Performed By: #### 5 8410-2 ####[facility], INCLIA [id number] [place] [address] [place] MCHC (RBC) [Mass/Vol] 31.7 g/dL Normal 30.5-36.0 [facility] Comment on above: Order Comment: Speci men Type: BLOOD SPECIMENOrdering Facility: [facility] Address: [address] [place] [address] Performed By: #### 5 8410-2 ####[facility]ITALRENETTA [id number] [place] [address] [place] MCV (RBC) [Entitic vol] 93.6 fL Normal 80.0-100.0 [facility] Comment on above: Order Comment: Speci men Type: BLOOD SPECIMENOrdering Facility: [facility] Address: [address] [place] [address] Performed By: #### 5 8410-2 ####[facility] [id number] [place] [address] [place] Nucleated RBC (Bld) [#/Vol] 10*3/uL Normal <0.01 [facility] Comment on above: Order Comment: Speci men Type: BLOOD SPECIMENOrdering Facility: [facility] Address: [address] [place] [address] Performed By: #### 5 8410-2 ####[facility]ITALMORIAHLI [id number] [place] [address] [place] Platelet mean volume (Bld) [Entitic vol] 10.2 fL Normal 9.0-12.7 [facility] Comment on above: Order Comment: Speci men Type: BLOOD SPECIMENOrdering Facility: [facility] Address: [address] [place] [address] Performed By: #### 5 8410-2 ####[facility]ITALNCL[facility] [id number] [place] [address] [place] Platelets (Bld) [#/Vol] 188 10*3/uL Normal 150-400 [facility] Comment on above: Order Comment: Speci men Type: BLOOD SPECIMENOrdering Facility: [facility] Address: [address] [place] [address] Performed By: #### 5 8410-2 ####[facility]ITALNCLIA [id number] [place] [address] [place] RBC (Bld) [#/Vol] 3.61 10*6/uL Low 3.90-5.20 [facility] Comment on above: Order Comment: Speci men Type: BLOOD SPECIMENOrdering Facility: [facility] Address: [address] [place] [address] Performed By: #### 5 8410-2 ####[facility] HOS[facility]ITALNCA [id number] [place] [address] [place] WBC (Bld) [#/Vol] 4.89 10*3/uL Normal 3.70-11.00 [facility] Comment on above: Order Comment: Speci men Type: BLOOD SPECIMENOrdering Facility: [facility] Address: [address] [place] [address] Performed By: #### 5 8410-2 ####[facility]ITALNCL[facility] [id number] [place] [address] [place] CREATININE BLDon 11-08-2024 Creatinine [Mass/Vol] 0.79 mg/dL Normal 0.58-0.96 [facility] Comment on above: Order Comment: Speci men Type: BLOOD SPECIMENOrdering Facility: [facility] Address: [address] [place] [address] Performed By: #### C RET1 ####[facility]ITALNCLIA [id number] [place] [address] [place] Creatinine and Glomerular filtration rate.predicted panel (S/P/Bld) 75 mL/min/1.73m??? Normal >=60 [facility] Comment on above: Order Comment: Speci men Type: BLOOD SPECIMENOrdering Facility: [facility] Address: [place] [address] Result Comment: Brandy mated Glomerular Filtration Rate [...] actual GFR. Performed By: #### C RET1 ####[facility] RAFITALAKE [facility] [id number] [address] [place] CNTHERAPYon 11-05-2024 CNTHERAPY OT/PT/Speech Visit ( [facility]) LAUREN ALCARAZ ([id number]) 1940 F Date Time Provider Department 11/05/24 2:[address] [facility] Date Time Provider Department Center 11/05/2024 2:00 PM [id number], DIANDRA [facility] Med Reason for Visit: Occupational Therapy [504] [...] 1,000 mcg intramuscularly once every month. Vitamin H-62-oovzgyyjuytpxl - ammonium lactate (LAC-HYDRIN) 12 % lotion [...] Street OTR/Tori on 11/05/2024 2:13 PM Normal [facility] CNOVon 11-03-2024 CNOV Normal [facility] VISUAL FIELD 24-2 OU (BOTH E YES)on 11-01-2024 [facility] Radiology Study observation (narrative) [facility] [id number] 10-29-2024 [id number] HNO ID: [id number] Author: [address] STREET OTR/L Service: ? Author Type: Occupational Therapist Type: [id number] Filed: 10/29/2024 12:32 Note Text: [facility] Rehabilitation and Sports Therapy Occupational Therapy Plan of Care Certification Patient Name: Lauren Alcaraz : 1940 [facility] #: [id number] Date: 10/29/2024 To: Laisha Lizarraga, APR* From [...] 10/29/24 Patient will complete HEP at Modified Leo level. Patient will increase bilateral darkroom worker and pinches by 5# to improve function [...] Planned: 8 Planned Treatment Interventions: Therapeutic exercise (61591), Neuromuscular re-education (27790), Self-fdc management (28552), Patient/Family/Caregiver Education PLAN FOR NEXT VISIT:assess different writing utensils, proximal stability? button hook, gentle darkroom worker strengthening Patient demonstrates good understanding of plan of care and treatment. The above goals and plan of care were discussed and agreed upon by patient/family. For further details regarding this patient refer to the Occupational Therapy electronically documented visit dated 10/29/2024. Provider Attestation I have reviewed the treatment plan for Lauren Alcaraz, CCF# [id number] for the period of 10/29/24 -- 12/28/24, established on 10/29/2024. Signature certifies the need for therapy services. [facility] CNOVon 10-29-2024 [facility]24 [facility] Telephone (GENLUH) LAUREN ALCARAZ ([id number]) 1940 F Date Time Provider Department 10/29/24 ANILA DE PAZ GENLU During your visit today, we recorded the following information about you: Sandie Messina 10/29/2024 2:26 PM Signed Incoming call from [facility] pharmacy states the compound that was sent [...] 1,000 mcg intramuscularly once every month. Vitamin T-51-dtzwhdwedhpjkd - ammonium lactate (LAC-HYDRIN) 12 % lotion [...] of malignant neop (more content not included)... [facility] CNTHERAPYon 10-29-2024 CNTHERAPY OT/PT/Speech Visit ( [facility]) LAUREN ALCARAZ ([id number]) 1940 F Date Time Provider Department 10/29/24 10:[address] [facility] Date Time Provider Department Center 10/29/2024 10:45 AM [id number], DIANDRA [facility] Reason for Visit: OT EVAL [748] Primary [...] 1,000 mcg intramuscularly once every month. Vitamin O-92-gihqojwpgcsupi - ammonium lactate (LAC-HYDRIN) 12 % lotion [...] every 6 months. Last injection November 2020 [facility] Pulmonary Visit Reporton Pulmonary Visit Report [facility] of [address] [place] [address] OFFICE VISIT Date of Service: 10/22/24 MR#: [id number] Acct: [id number] Name: LAUREN ALCARAZ Rep #: [id number] : 1940 Provider: BURAK Vincent Age/Sex: 84/F Location: [facility] Status: Signed Assessment and Plan Assessment and Plan (1) Bronchiectasis: Status: Chronic Qualifiers: Bronchiectasis type: uncomplicated Qualified Code(s): J47.9 - Bronchiectasis, uncomplicated Comment: Lingular subsegment Plan: Stable, no signs of exacerbation of bronchiectasis today. No change in maintenance medications, she is only requiring hzur-kuc-mkvukbn antihistamine. No additional testing at this time. [...] air Intake Visit Reasons: 6 M FU Local Sales Associate Required: No DME Vendor: o2- [employer] [...] denosumab 60 mg/mL subcutaneous 60 mg subcut [id number] #1 mL 10/22/24 Rx syringe (Prolia) BD [...] mL 4 (more content not included)... Normal [facility] Breast imaging reportOrdered By: Sam Mac on 10-18-2024 Study report [facility] Imaging Services [address] [place] [address] SCRN MAMM (CAD)W/EVERETT BILAT MR#: [id number] Acct: [id number] Name: LAUREN ALCARAZ Rep #: [id number] : 1940 F 84 From: Cody Mac MD PCP: Dr. Chema Perry MD Status: [facility] Study:SCRN MAMM (CAD)W/EVERETT BILAT Date of Exa m: 10/18/24 Exam# [id number] Ordering Dr: Chema Perry MD PROCEDURE: SCRN [...] ASHLI CC: Dr. Chema Perry MD ~ Insurance Assistant: Signed [facility] SCRN MAMM (CAD)W/EVERETT BILATo n 10-18-2024 SCRN MAMM (CAD)W/EVERETT BILAT [facility] Imaging Services [address] [place] [address] SCRN MAMM (CAD)W/EVERETT BILAT MR#: [id number] Acct: [id number] Name: LAUREN ALCARAZ Rep #: [id number] : 1940 F 84 From: Sam stafford MD PCP: Dr. Chema Perry MD Status: [facility] Study: SCRN MAMM (CAD)W/EVERETT BILAT Date of Exam: 11/09 Exam# [id number] Ordering Dr: Chema Perry MD PROCEDURE: SCRN [...] Location: [facility] CC: Dr. Chema Perry MD Insurance Assistant: Signed Normal [facility] MR/BMS.IMBon 10-14-2024 MR/BMS.IMB [facility] [address] [facility] [place] [address] OFFICE VISIT Date of Service: 10/14/24 MR#: [id number] Acct: [id number] Name: LAUREN ALCARAZ Rep #: [id number] : 1940 Provider: Dr. Chema williamson MD Age/Sex: 84/F Location: [facility] Status: Signed Intake Vital Signs 09/18/24 08:37 10/14/24 13:18 Height 4 ft 7 in 4 ft 7 in Weight: 105 lb 4 oz BMI 24.4 BP 113/79 Blood Pressure Location Lt brachial Position Sitting Respiration 16 Pulse 78 Pulse Source Monitor Temp 98.4 F Temp Source Temporal Pulse Oximetry (%) 90 Oxygen Delivery Method room air Intake Visit Reasons: F/U Mcc Discharge Chief Complaint: F/U alf discharge Local Sales Associate Required: No Accompanied by: Self Is patient [...] denosumab 60 mg/mL subcutaneous 60 mg subcut [id number] #1 mL 10/14/24 Rx syringe (Prolia) BD [...] you fallen in the past year?: No [facility] Medical History Open wound of right lower extremity Contusion of right foot Kyphoscoliosis deform (more content not included)... Normal [facility] CNOVon 10-13-2024 CNOV Normal [facility] CNOVon 10-08-2024 CNOV Normal [facility] CASE MANAGEMon 09-23-2024 CASE MANAGEM Normal [facility] CASE MANAGEM Normal [facility] CASE MANAGEM Normal [facility] CBC panel Auto (Bld)on 09-23 Erythrocyte distribution width (RBC) [Ratio] 13.6 % Normal 11.5-15.0 [facility] Comment on above: Order Comment: Speci men Type: BLOOD SPECIMENOrdering Facility: [facility] Address: [address] [place] [address] Performed By: #### 5 8410-2 ####[facility] [id number] [place] [address] [place] Hematocrit (Bld) [Volume fraction] 33.2 % Low 36.0-46.0 [facility] Comment on above: Order Comment: Speci men Type: BLOOD SPECIMENOrdering Facility: [facility] Address: [address] [place] [address] Performed By: #### 5 8410-2 ####[facility] LABIA [id number] [place] [address] [place] Hemoglobin (Bld) [Mass/Vol] 10.7 g/dL Low 11.5-15.5 [facility] Comment on above: Order Comment: Speci men Type: BLOOD SPECIMENOrdering Facility: [facility] Address: [address] [place] [address] Performed By: #### 5 8410-2 ####[facility] LABIA [id number] [place] [address] [place] MCH (RBC) [Entitic mass] 29.2 pg Normal 26.0-34.0 [facility] Comment on above: Order Comment: Speci men Type: BLOOD SPECIMENOrdering Facility: [facility] Address: [address] [place] [address] Performed By: #### 5 8410-2 ####[facility] LABIA [id number] [place] [address] [place] MCHC (RBC) [Mass/Vol] 32.2 g/dL Normal 30.5-36.0 [facility] Comment on above: Order Comment: Speci men Type: BLOOD SPECIMENOrdering Facility: [facility] Address: [address] [place] [address] Performed By: #### 5 8410-2 ####[facility] LABIA [id number] [place] [address] [place] MCV (RBC) [Entitic vol] 90.5 fL Normal 80.0-100.0 [facility] Comment on above: Order Comment: Speci men Type: BLOOD SPECIMENOrdering Facility: [facility] Address: [address] [place] [address] Performed By: #### 5 8410-2 ####[facility] LABIA [id number] [place] [address] [place] Nucleated RBC (Bld) [#/Vol] 10*3/uL Normal <0.01 [facility] Comment on above: Order Comment: Speci men Type: BLOOD SPECIMENOrdering Facility: [facility] Address: [address] [place] [address] Performed By: #### 5 8410-2 ####[facility] LABIA [id number] [place] [address] [place] Platelet mean volume (Bld) [Entitic vol] 10.8 fL Normal 9.0-12.7 [facility] Comment on above: Order Comment: Speci men Type: BLOOD SPECIMENOrdering Facility: [facility] Address: [address] [place] [address] Performed By: #### 5 8410-2 ####[facility] LABCLIA [id number] [place] [address] [place] Platelets (Bld) [#/Vol] 150 10*3/uL Normal 150-400 [facility] Comment on above: Order Comment: Speci men Type: BLOOD SPECIMENOrdering Facility: [facility] Address: [address] [place] [address] Performed By: #### 5 8410-2 ####[facility] LABIA [id number] [place] [address] [place] RBC (Bld) [#/Vol] 3.67 10*6/uL Low 3.90-5.20 [facility] Comment on above: Order Comment: Speci men Type: BLOOD SPECIMENOrdering Facility: [facility] Address: [address] [place] [address] Performed By: #### 5 8410-2 ####[facility] LABIA [id number] [place] [address] [place] WBC (Bld) [#/Vol] 5.57 10*3/uL Normal 3.70-11.00 [facility] Comment on above: Order Comment: Speci men Type: BLOOD SPECIMENOrdering Facility: [facility] Address: [address] [place] [address] Performed By: #### 5 8410-2 ####[facility] LABIA [id number] [place] [address] [place] CNDSon 09-23-2024 CNDS Normal [facility] Comprehensive metabolic 2000 panelon 09-23-2024 Albumin [Mass/Vol] 3.3 g/dL Low 3.9-4.9 [facility] Comment on above: Order Comment: Speci men Type: BLOOD SPECIMENOrdering Facility: [facility] Address: [address] [place] [address] Performed By: #### 1 9123-9, 97900-3, 2777-1 ####[facility] LABCLIA [id number] [place] [address] [place] ALP [Catalytic activity/Vol] 71 U/L Normal 34-123 [facility] Comment on above: Order Comment: Speci men Type: BLOOD SPECIMENOrdering Facility: [facility] Address: [address] [place] [address] Performed By: #### 1 9123-9, 39854-8, 2777-1 ####[facility] LABCLIA [id number] [place] [address] [place] ALT [Catalytic activity/Vol] 25 U/L Normal 7-38 [facility] Comment on above: Order Comment: Speci men Type: BLOOD SPECIMENOrdering Facility: [facility] Address: [address] [place] [address] Performed By: #### 1 9123-9, 28239-8, 2777-1 ####[facility] LABCLIA [id number] [place] [address] [place] Anion gap [Moles/Vol] 8 mmol/L Normal 8-15 [facility] Comment on above: Order Comment: Speci men Type: BLOOD SPECIMENOrdering Facility: [facility] Address: [address] [place] [address] Performed By: #### 1 9123-9, 42956-5, 2777- ####[facility] LABCLIA [id number] [place] [address] [place] AST [Catalytic activity/Vol] 30 U/L Normal 13-35 [facility] Comment on above: Order Comment: Speci men Type: BLOOD SPECIMENOrdering Facility: [facility] Address: [address] [place] [address] Performed By: #### 1 9123-9, 82784-1, 2777-1 ####[facility] LABCLIA [id number] [place] [address] [place] Bilirubin [Mass/Vol] 0.5 mg/dL Normal 0.2-1.3 [facility] Comment on above: Order Comment: Speci men Type: BLOOD SPECIMENOrdering Facility: [facility] Address: [address] [place] [address] Performed By: #### 1 9123-9, 44693-3, 2776-08 ####[facility] LABCLIA [id number] [place] [address] [place] Calcium [Mass/Vol] 8.1 mg/dL Low 8.5-10.2 [facility] Comment on above: Order Comment: Speci men Type: BLOOD SPECIMENOrdering Facility: [facility] Address: [address] [place] [address] Performed By: #### 1 9123-9, , 2776-08 ####[facility] LABCLIA [id number] [place] [address] [place] Chloride [Moles/Vol] 102 mmol/L Normal 98-107 [facility] Comment on above: Order Comment: Speci men Type: BLOOD SPECIMENOrdering Facility: [facility] Address: [address] [place] [address] Performed By: #### 1 9123-9, , 2776-08 ####[facility] LABCLIA [id number] [place] [address] [place] CO2 [Moles/Vol] 27 mmol/L Normal 22-30 [facility] Comment on above: Order Comment: Speci men Type: BLOOD SPECIMENOrdering Facility: [facility] Address: [address] [place] [address] Performed By: #### 1 9123-9, 93423-5, 2776-08 ####[facility] LABCLIA [id number] [place] [address] [place] Creatinine [Mass/Vol] 0.81 mg/dL Normal 0.58-0.96 [facility] Comment on above: Order Comment: Speci men Type: BLOOD SPECIMENOrdering Facility: [facility] Address: [address] [place] [address] Performed By: #### 1 9123-9, 56244-9, 2777-1 ####[facility] LABCLIA [id number] [place] [address] [place] Creatinine and Glomerular filtration rate.predicted panel (S/P/Bld) 73 mL/min/1.73m??? Normal >=60 [facility] Comment on above: Order Comment: Ramirez gamez Type: BLOOD SPECIMENOrdering Facility: [facility] Address: [address] [place] [address] Result Comment: Brandy mated Glomerular Filtration Rate [...] actual GFR. Performed By: #### 1 9123-9, 76701-9, 2777-1 ####[facility] LABCLIA [id number] [place] [address] [place] Glucose [Mass/Vol] 93 mg/dL Normal 74-99 [facility] Comment on above: Order Comment: Ramirez gamez Type: BLOOD SPECIMENOrdering Facility: [facility] Address: [address] [place] [address] Result Comment: The [place] Diabetes Association (ADA) provides guidance for cutoff [...] Standards of Medical Care in Diabetes 2016, [place] Diabetes Association. Diabetes Care. 2016.39(Suppl 1). Performed By: #### 1 9123-9, 83619-4, 2777- ####[facility] LABCLIA [id number] [address] [address] [place] Potassium [Moles/Vol] 3.8 mmol/L Normal 3.7-5.1 [facility] Comment on above: Order Comment: Speci men Type: BLOOD SPECIMENOrdering Facility: [facility] Address: [address] [place] [address] Performed By: #### 1 9123-9, 76209-4, 2776-08 ####[facility] LABCLIA [id number] [place] [address] [place] Protein [Mass/Vol] 5.7 g/dL Low 6.3-8.0 [facility] Comment on above: Order Comment: Speci men Type: BLOOD SPECIMENOrdering Facility: [facility] Address: [address] [place] [address] Performed By: #### 1 9123-9, 12061-9, 2776-08 ####[facility] LABCLIA [id number] [place] [address] [place] Sodium [Moles/Vol] 137 mmol/L Normal 136-144 [facility] Comment on above: Order Comment: Speci men Type: BLOOD SPECIMENOrdering Facility: [facility] Address: [address] [place] [address] Performed By: #### 1 9123-9, 61499-5, 2776- ####[facility] LABCLIA [id number] [address] [address] [place] Urea nitrogen [Mass/Vol] 12 mg/dL Normal 7-21 [facility] Comment on above: Order Comment: Speci men Type: BLOOD SPECIMENOrdering Facility: [facility] Address: [address] [place] [address] Performed By: #### 1 9123-9, 11267-9, 2777-1 ####[facility] LABCLIA [id number] [place] [id number] [place] Magnesium SerPl-mCncon 09-23 Magnesium [Mass/Vol] 1.8 mg/dL Normal 1.7-2.3 [facility] Comment on above: Order Comment: Speci men Type: BLOOD SPECIMENOrdering Facility: [facility] Address: [address] [place] [address] Performed By: #### 1 9123-9, 61108-2, 2777-1 ####[facility] LABCLIA [id number] [place] [address] [place] Phosphate SerPl-mCncon 09-23 Phosphate [Mass/Vol] 1.7 mg/dL Low 2.7-4.8 [facility] Comment on above: Order Comment: Speci men Type: BLOOD SPECIMENOrdering Facility: [facility] Address: [address] [place] [address] Performed By: #### 1 9123-9, 54973-4, 2777-1 ####[facility] LABCLIA [id number] [place] [address] [place] THERAPY NTon 09-23-2024 THERAPY NT Normal [facility] ANES POSTPROC EVALon 025 ANES POSTPROC EVAL Normal [facility] ANES POSTPROC EVAL Normal [facility] CASE MANAGEMon 09-22-2024 CASE MANAGEM Normal [facility] CBC panel Auto (Bld)on 09-22 Erythrocyte distribution width (RBC) [Ratio] 13.7 % Normal 11.5-15.0 [facility] Comment on above: Order Comment: Speci men Type: BLOOD SPECIMENOrdering Facility: [facility] Address: [address] [place] [address] Performed By: #### 5 8410-2 ####[facility] LABCLIA [id number] [place] [address] [place] Hematocrit (Bld) [Volume fraction] 33.8 % Low 36.0-46.0 [facility] Comment on above: Order Comment: Speci men Type: BLOOD SPECIMENOrdering Facility: [facility] Address: [address] [place] [address] Performed By: #### 5 8410-2 ####[facility] LABIA [id number] [place] [address] [place] Hemoglobin (Bld) [Mass/Vol] 10.8 g/dL Low 11.5-15.5 [facility] Comment on above: Order Comment: Speci men Type: BLOOD SPECIMENOrdering Facility: [facility] Address: [address] [place] [address] Performed By: #### 5 8410-2 ####[facility] LABIA [id number] [place] [address] [place] MCH (RBC) [Entitic mass] 29.1 pg Normal 26.0-34.0 [facility] Comment on above: Order Comment: Speci men Type: BLOOD SPECIMENOrdering Facility: [facility] Address: [address] [place] [address] Performed By: #### 5 8410-2 ####[facility] LABIA [id number] [place] [address] [place] MCHC (RBC) [Mass/Vol] 32.0 g/dL Normal 30.5-36.0 [facility] Comment on above: Order Comment: Speci men Type: BLOOD SPECIMENOrdering Facility: [facility] Address: [address] [place] [address] Performed By: #### 5 8410-2 ####[facility] LABIA [id number] [place] [address] [place] MCV (RBC) [Entitic vol] 91.1 fL Normal 80.0-100.0 [facility] Comment on above: Order Comment: Speci men Type: BLOOD SPECIMENOrdering Facility: [facility] Address: [address] [place] [address] Performed By: #### 5 8410-2 ####[facility] LABIA [id number] [place] [address] [place] Nucleated RBC (Bld) [#/Vol] 10*3/uL Normal <0.01 [facility] Comment on above: Order Comment: Speci men Type: BLOOD SPECIMENOrdering Facility: [facility] Address: [address] [place] [address] Performed By: #### 5 8410-2 ####[facility] LABIA [id number] [place] [address] [place] Platelet mean volume (Bld) [Entitic vol] 10.6 fL Normal 9.0-12.7 [facility] Comment on above: Order Comment: Speci men Type: BLOOD SPECIMENOrdering Facility: [facility] Address: [address] [place] [address] Performed By: #### 5 8410-2 ####[facility] LABIA [id number] [place] [address] [place] Platelets (Bld) [#/Vol] 147 10*3/uL Low 150-400 [facility] Comment on above: Order Comment: Speci men Type: BLOOD SPECIMENOrdering Facility: [facility] Address: [address] [place] [address] Performed By: #### 5 8410-2 ####[facility] LABIA [id number] [place] [address] [place] RBC (Bld) [#/Vol] 3.71 10*6/uL Low 3.90-5.20 [facility] Comment on above: Order Comment: Speci men Type: BLOOD SPECIMENOrdering Facility: [facility] Address: [address] [place] [address] Performed By: #### 5 8410-2 ####[facility] LABCLIA [id number] [place] [address] [place] WBC (Bld) [#/Vol] 4.72 10*3/uL Normal 3.70-11.00 [facility] Comment on above: Order Comment: Speci men Type: BLOOD SPECIMENOrdering Facility: [facility] Address: [address] [place] [address] Performed By: #### 5 8410-2 ####[facility] LABIA [id number] [place] [address] [place] Comprehensive metabolic 2000 panelon 09-22-2024 Albumin [Mass/Vol] 3.2 g/dL Low 3.9-4.9 [facility] Comment on above: Order Comment: Speci men Type: BLOOD SPECIMENOrdering Facility: [facility] Address: [address] [place] [address] Performed By: #### 1 9123-9, 55569-4, 2777-1 ####[facility] LABIA [id number] [place] [address] [place] ALP [Catalytic activity/Vol] 74 U/L Normal 34-123 [facility] Comment on above: Order Comment: Speci men Type: BLOOD SPECIMENOrdering Facility: [facility] Address: [address] [place] [address] Performed By: #### 1 9123-9, 25183-5, 2777-1 ####[facility] LABIA [id number] [place] [address] [place] ALT [Catalytic activity/Vol] 30 U/L Normal 7-38 [facility] Comment on above: Order Comment: Speci men Type: BLOOD SPECIMENOrdering Facility: [facility] Address: [address] [place] [address] Performed By: #### 1 9123-9, 18000-6, 2777 ####[facility] LABCLIA [id number] [place] [address] [place] Anion gap [Moles/Vol] 9 mmol/L Normal 8-15 [facility] Comment on above: Order Comment: Speci men Type: BLOOD SPECIMENOrdering Facility: [facility] Address: [address] [place] [address] Performed By: #### 1 9123-9, 90569-0, 277- ####[facility] LABCLIA [id number] [place] [address] [place] AST [Catalytic activity/Vol] 45 U/L High 13-35 [facility] Comment on above: Order Comment: Speci men Type: BLOOD SPECIMENOrdering Facility: [facility] Address: [address] [place] [address] Performed By: #### 1 9123-9, 55483-1, 27702-15 ####[facility] LABCLIA [id number] [place] [address] [place] Bilirubin [Mass/Vol] 1.0 mg/dL Normal 0.2-1.3 [facility] Comment on above: Order Comment: Speci men Type: BLOOD SPECIMENOrdering Facility: [facility] Address: [address] [place] [address] Performed By: #### 1 9123-9, 50655-1, 27702-15 ####[facility] LABCLIA [id number] [place] [address] [place] Calcium [Mass/Vol] 8.0 mg/dL Low 8.5-10.2 [facility] Comment on above: Order Comment: Speci men Type: BLOOD SPECIMENOrdering Facility: [facility] Address: [address] [place] [address] Performed By: #### 1 9123-9, 51506-1, 277- ####[facility] LABCLIA [id number] [place] [address] [place] Chloride [Moles/Vol] 102 mmol/L Normal 98-107 [facility] Comment on above: Order Comment: Speci men Type: BLOOD SPECIMENOrdering Facility: [facility] Address: [address] [place] [address] Performed By: #### 1 9123-9, 43285-6, 2777-1 ####[facility] LABIA [id number] [place] [address] [place] CO2 [Moles/Vol] 25 mmol/L Normal 22-30 [facility] Comment on above: Order Comment: Speci men Type: BLOOD SPECIMENOrdering Facility: [facility] Address: [address] [place] [address] Performed By: #### 1 9123-9, 86807-6, 2777-1 ####[facility] [id number] [place] [address] [place] Creatinine [Mass/Vol] 0.82 mg/dL Normal 0.58-0.96 [facility] Comment on above: Order Comment: Speci men Type: BLOOD SPECIMENOrdering Facility: [facility] Address: [address] [place] [address] Performed By: #### 1 9123-9, 81398-2, 2777-1 ####[facility] [id number] [place] [address] [place] Creatinine and Glomerular filtration rate.predicted panel (S/P/Bld) 72 mL/min/1.73m??? Normal >=60 [facility] Comment on above: Order Comment: Speci men Type: BLOOD SPECIMENOrdering Facility: [facility] Address: [address] [place] [address] Result Comment: Brandy mated Glomerular Filtration Rate [...] Performed By: #### 1 9123-9, , 2776-08 ####[facility] LABCLIA [id number] [address] [address] [place] Glucose [Mass/Vol] 75 mg/dL Normal 74-99 [facility] Comment on above: Order Comment: Ramirez gamez Type: BLOOD SPECIMENOrdering Facility: [facility] Address: [address] [place] [address] Result Comment: The [employer] Diabetes Association (ADA) provides guidance for cutoff [...] Standards of Medical Care in Diabetes 2016, [employer] Diabetes Association. Diabetes Care. 2016.39(Suppl 1). Performed By: #### 1 9123-9, , 2776-08 ####[facility] LABCLIA [id number] [address] [address] [place] Potassium [Moles/Vol] 4.0 mmol/L Normal 3.7-5.1 [facility] Comment on above: Order Comment: Ramirez gamez Type: BLOOD SPECIMENOrdering Facility: [facility] Address: [address] [place] [address] Performed By: #### 1 9123-9, , 2776-08 ####[facility] LABCLIA [id number] [address] [address] [place] Protein [Mass/Vol] 5.5 g/dL Low 6.3-8.0 [facility] Comment on above: Order Comment: Speci men Type: BLOOD SPECIMENOrdering Facility: [facility] Address: [address] [place] [address] Performed By: #### 1 9123-9, 09023-9, 2777-1 ####[facility] LABCLIA [id number] [place] [address] [place] Sodium [Moles/Vol] 136 mmol/L Normal 136-144 [facility] Comment on above: Order Comment: Speci men Type: BLOOD SPECIMENOrdering Facility: [facility] Address: [address] [place] [address] Performed By: #### 1 9123-9, 84468-8, 2777-1 ####[facility] LABCLIA [id number] [place] [address] [place] Urea nitrogen [Mass/Vol] 11 mg/dL Normal 7-21 [facility] Comment on above: Order Comment: Speci men Type: BLOOD SPECIMENOrdering Facility: [facility] Address: [address] [place] [address] Performed By: #### 1 9123-9, 86909-2, 2777- ####[facility] LABCLIA [id number] [place] [address] [place] Magnesium SerPl-mCncon 09-22 Magnesium [Mass/Vol] 2.1 mg/dL Normal 1.7-2.3 [facility] Comment on above: Order Comment: Speci men Type: BLOOD SPECIMENOrdering Facility: [facility] Address: [address] [place] [address] Performed By: #### 1 9123-9, 67002-4, 2777-1 ####[facility] LABCLIA [id number] [place] [id number] [place] PT EDon 09-22-2024 PT ED Normal [facility] Phosphate SerPl-mCncon 09-22 Phosphate [Mass/Vol] 1.7 mg/dL Low 2.7-4.8 [facility] Comment on above: Order Comment: Speci men Type: BLOOD SPECIMENOrdering Facility: [facility] Address: [address] [place], [place] [address] Performed By: #### 1 9123-9, 41323-5, 2777-1 ####[facility] LABCLIA [id number] [address] [address] [place] THERAPY NTon 09-22-2024 THERAPY NT Normal [facility] Basic metabolic 2000 panelon 09-21-2024 Anion gap [Moles/Vol] 12 mmol/L Normal 8-15 [facility] Comment on above: Order Comment: Speci men Type: BLOOD SPECIMENOrdering Facility: [facility] Address: [address] [place] [address] Performed By: #### 1 9123-9, 2777-1, 88294-3, 69578-3 ####[facility] LABCLIA [id number] [place] [address] [place] Calcium [Mass/Vol] 8.0 mg/dL Low 8.5-10.2 [facility] Comment on above: Order Comment: Speci men Type: BLOOD SPECIMENOrdering Facility: [facility] Address: [address] [place] [address] Performed By: #### 1 9123-9, 2777-1, 11366-2, 23808-2 ####[facility] LABCLIA [id number] [address] [address] [place] Chloride [Moles/Vol] 102 mmol/L Normal 98-107 [facility] Comment on above: Order Comment: Speci men Type: BLOOD SPECIMENOrdering Facility: [facility] Address: [address] [place] [address] Performed By: #### 1 9123-9, 2777-1, 27831-1, 14785-7 ####[facility] LABCLIA [id number] [place] [address] [place] CO2 [Moles/Vol] 24 mmol/L Normal 22-30 [facility] Comment on above: Order Comment: Speci men Type: BLOOD SPECIMENOrdering Facility: [facility] Address: [address] [place] [address] Performed By: #### 1 9123-9, 2777-1, 19554-6, 70343-3 ####[facility] LABCLIA [id number] [place] [address] [place] Creatinine [Mass/Vol] 0.78 mg/dL Normal 0.58-0.96 [facility] Comment on above: Order Comment: Speci men Type: BLOOD SPECIMENOrdering Facility: [facility] Address: [address] [place] [address] Performed By: #### 1 9123-9, 2777-1, 61083-6, 77354-4 ####[facility] LABIA [id number] [place] [address] [place] Creatinine and Glomerular filtration rate.predicted panel (S/P/Bld) 76 mL/min/1.73m??? Normal >=60 [facility] Comment on above: Order Comment: Speci men Type: BLOOD SPECIMENOrdering Facility: [facility] Address: [address] [place] [address] Result Comment: Brandy mated Glomerular Filtration Rate [...] GFR. Performed By: #### 1 9123-9, 2777-1, 49390-7, 78209-9 ####[facility] LABCLIA [id number] [place] [address] [place] Glucose [Mass/Vol] 64 mg/dL Low 74-99 [facility] Comment on above: Order Comment: Speci men Type: BLOOD SPECIMENOrdering Facility: [facility] Address: [address] [place] [address] Result Comment: The [employer] Diabetes Association (ADA) provides guidance for cutoff [...] Standards of Medical Care in Diabetes 2016, [employer] Diabetes Association. Diabetes Care. 2016.39(Suppl 1). Performed By: #### 1 9123-9, 2777-1, 07290-2, 39286-8 ####[facility] LABCLIA [id number] [place] [address] [place] Potassium [Moles/Vol] 4.2 mmol/L Normal 3.7-5.1 [facility] Comment on above: Order Comment: Speci men Type: BLOOD SPECIMENOrdering Facility: [facility] Address: [address] [place] [address] Performed By: #### 1 9123-9, 2777-1, 25910-8, 91064-4 ####[facility] LABCLIA [id number] [place] [address] [place] Sodium [Moles/Vol] 138 mmol/L Normal 136-144 [facility] Comment on above: Order Comment: Speci men Type: BLOOD SPECIMENOrdering Facility: [facility] Address: [address] [place] [address] Performed By: #### 1 9123-9, 2777-1, 45110-0, 42197-6 ####[facility] LABCLIA [id number] [place] [id number] [place] Urea nitrogen [Mass/Vol] 15 mg/dL Normal 7-21 [facility] Comment on above: Order Comment: Speci men Type: BLOOD SPECIMENOrdering Facility: [facility] Address: [address] [place] [address] Performed By: #### 1 9123-9, 2777-1, 53014-0, 46866-1 ####[facility] LABCLIA [id number] [place] [address] [place] CASE MANAGEMon 09-21-2024 CASE MANAGEM Normal [facility] CASE MGT INIT ASSESon 2024 CASE MGT INIT ASSES Normal [facility] CBC W Auto Differential pane l (Bld)on 09-21-2024 Basophils (Bld) [#/Vol] 10*3/uL Normal <0.11 [facility] Comment on above: Order Comment: Speci men Type: BLOOD SPECIMENOrdering Facility: [facility] Address: [address] [place] [address] Performed By: #### 5 7021-8 ####[facility] LABCLIA [id number] [place] [address] [place] Basophils/100 WBC (Bld) 0.3 % Normal [facility] Comment on above: Order Comment: Speci men Type: BLOOD SPECIMENOrdering Facility: [facility] Address: [address] [place] [address] Performed By: #### 5 7021-8 ####[facility] LABIA [id number] [place] [address] [place] Differential cell count method Nom (Bld) Auto Normal [facility] Comment on above: Order Comment: Speci men Type: BLOOD SPECIMENOrdering Facility: [facility] Address: [address] [place] [address] Performed By: #### 5 7021-8 ####[facility] LABCLIA [id number] [place] [address] [place] Eosinophils (Bld) [#/Vol] 10*3/uL Normal <0.46 [facility] Comment on above: Order Comment: Speci men Type: BLOOD SPECIMENOrdering Facility: [facility] Address: [address] [place] [address] Performed By: #### 5 7021-8 ####[facility] LABCLIA [id number] [place] [address] [place] Eosinophils/100 WBC (Bld) 0.2 % Normal [facility] Comment on above: Order Comment: Speci men Type: BLOOD SPECIMENOrdering Facility: [facility] Address: [address] [place] [address] Performed By: #### 5 7021-8 ####[facility] LABCLIA [id number] [place] [address] [place] Erythrocyte distribution width (RBC) [Ratio] 13.7 % Normal 11.5-15.0 [facility] Comment on above: Order Comment: Speci men Type: BLOOD SPECIMENOrdering Facility: [facility] Address: [address] [place] [address] Performed By: #### 5 7021-8 ####[facility] LABCLIA [id number] [place] [address] [place] Hematocrit (Bld) [Volume fraction] 35.7 % Low 36.0-46.0 [facility] Comment on above: Order Comment: Speci men Type: BLOOD SPECIMENOrdering Facility: [facility] Address: [address] [place] [address] Performed By: #### 5 7021-8 ####[facility] LABCLIA [id number] [place] [address] [place] Hemoglobin (Bld) [Mass/Vol] 11.2 g/dL Low 11.5-15.5 [facility] Comment on above: Order Comment: Speci men Type: BLOOD SPECIMENOrdering Facility: [facility] Address: [address] [place] [address] Performed By: #### 5 7021-8 ####[facility] LABCLIA [id number] [place] [address] [place] Immature granulocytes (Bld) [#/Vol] 10*3/uL Normal <0.10 [facility] Comment on above: Order Comment: Speci men Type: BLOOD SPECIMENOrdering Facility: [facility] Address: [address] [place] [address] Performed By: #### 5 7021-8 ####[facility] LABCLIA [id number] [place] [address] [place] Immature granulocytes/100 WBC (Bld) 0.3 % Normal [facility] Comment on above: Order Comment: Speci men Type: BLOOD SPECIMENOrdering Facility: [facility] Address: [address] [place] [address] Performed By: #### 5 7021-8 ####[facility] LABCLIA [id number] [place] [address] [place] Lymphocytes (Bld) [#/Vol] 1.31 10*3/uL Normal 1.00-4.00 [facility] Comment on above: Order Comment: Speci men Type: BLOOD SPECIMENOrdering Facility: [facility] Address: [address] [place] [address] Performed By: #### 5 7021-8 ####[facility] LABCLIA [id number] [place] [address] [place] Lymphocytes/100 WBC (Bld) 20.1 % Normal [facility] Comment on above: Order Comment: Speci men Type: BLOOD SPECIMENOrdering Facility: [facility] Address: [address] [place] [address] Performed By: #### 5 7021-8 ####[facility] LABIA [id number] [place] [address] [place] MCH (RBC) [Entitic mass] 28.9 pg Normal 26.0-34.0 [facility] Comment on above: Order Comment: Speci men Type: BLOOD SPECIMENOrdering Facility: [facility] Address: [address] [place] [address] Performed By: #### 5 7021-8 ####[facility] [id number] [place] [address] [place] MCHC (RBC) [Mass/Vol] 31.4 g/dL Normal 30.5-36.0 [facility] Comment on above: Order Comment: Speci men Type: BLOOD SPECIMENOrdering Facility: [facility] Address: [address] [place] [address] Performed By: #### 5 7021-8 ####[facility] [id number] [place] [address] [place] MCV (RBC) [Entitic vol] 92.2 fL Normal 80.0-100.0 [facility] Comment on above: Order Comment: Speci men Type: BLOOD SPECIMENOrdering Facility: [facility] Address: [address] [place] [address] Performed By: #### 5 7021-8 ####[facility] [id number] [place] [address] [place] [place] Monocytes (Bld) [#/Vol] 0.54 10*3/uL Normal <0.87 [facility] Comment on above: Order Comment: Speci men Type: BLOOD SPECIMENOrdering Facility: [facility] Address: [address] [place] [address] Performed By: #### 5 7021-8 ####[facility] [id number] [place] [address] [place] Monocytes/100 WBC (Bld) 8.3 % Normal [facility] Comment on above: Order Comment: Speci men Type: BLOOD SPECIMENOrdering Facility: [facility] Address: [address] [place] [address] Performed By: #### 5 7021-8 ####[facility] LABCLIA [id number] [place] [address] [place] Neutrophils (Bld) [#/Vol] 4.63 10*3/uL Normal 1.45-7.50 [facility] Comment on above: Order Comment: Speci men Type: BLOOD SPECIMENOrdering Facility: [facility] Address: [address] [place] [address] Performed By: #### 5 7021-8 ####[facility] LABCLIA [id number] [place] [address] [place] Neutrophils/100 WBC (Bld) 70.8 % Normal [facility] Comment on above: Order Comment: Speci men Type: BLOOD SPECIMENOrdering Facility: [facility] Address: [address] [place] [address] Performed By: #### 5 7021-8 ####[facility] LABCLIA [id number] [place] [address] [place] Nucleated RBC (Bld) [#/Vol] 10*3/uL Normal <0.01 [facility] Comment on above: Order Comment: Speci men Type: BLOOD SPECIMENOrdering Facility: [facility] Address: [address] [place] [address] Performed By: #### 5 7021-8 ####[facility] LABCLIA [id number] [place] [address] [place] Nucleated RBC/100 WBC (Bld) [Ratio] 0.0 /100 WBC Normal [facility] Comment on above: Order Comment: Speci men Type: BLOOD SPECIMENOrdering Facility: [facility] Address: [address] [place] [address] Performed By: #### 5 7021-8 ####[facility] LABCLIA [id number] [place] [id number] [place] Platelet mean volume (Bld) [Entitic vol] 10.7 fL Normal 9.0-12.7 [facility] Comment on above: Order Comment: Speci men Type: BLOOD SPECIMENOrdering Facility: [facility] Address: [address] [place] [address] Performed By: #### 5 7021-8 ####[facility] LABCLIA [id number] [place] [address] [place] Platelets (Bld) [#/Vol] 158 10*3/uL Normal 150-400 [facility] Comment on above: Order Comment: Speci men Type: BLOOD SPECIMENOrdering Facility: [facility] Address: [address] [place] [address] Performed By: #### 5 7021-8 ####[facility] LABCLIA [id number] [place] [address] [place] RBC (Bld) [#/Vol] 3.87 10*6/uL Low 3.90-5.20 [facility] Comment on above: Order Comment: Speci men Type: BLOOD SPECIMENOrdering Facility: [facility] Address: [address] [place] [address] Performed By: #### 5 7021-8 ####[facility] LABCLIA [id number] [place] [id number] [place] WBC (Bld) [#/Vol] 6.53 10*3/uL Normal 3.70-11.00 [facility] Comment on above: Order Comment: Speci men Type: BLOOD SPECIMENOrdering Facility: [facility] Address: [address] [place] [address] Performed By: #### 5 7021-8 ####[facility] LABCLIA [id number] [address] [address] [place] Hepatic function 2000 panelo n 09-21-2024 Albumin [Mass/Vol] 3.4 g/dL Low 3.9-4.9 [facility] Comment on above: Order Comment: Speci men Type: BLOOD SPECIMENOrdering Facility: [facility] Address: [address] [place] [address] Performed By: #### 1 9123-9, 2777-1, 07896-3, 59332-9 ####[facility] LABCLIA [id number] [place] [address] [place] ALP [Catalytic activity/Vol] 65 U/L Normal 34-123 [facility] Comment on above: Order Comment: Speci men Type: BLOOD SPECIMENOrdering Facility: [facility] Address: [address] [place] [address] Performed By: #### 1 9123-9, 2777-1, 32919-7, 22133-8 ####[facility] LABCLIA [id number] [place] [address] [place] ALT [Catalytic activity/Vol] 30 U/L Normal 7-38 [facility] Comment on above: Order Comment: Speci men Type: BLOOD SPECIMENOrdering Facility: [facility] Address: [address] [place] [address] Performed By: #### 1 9123-9, 2777-1, 32746-6, 98347-8 ####[facility] LABCLIA [id number] [place] [id number] [place] AST [Catalytic activity/Vol] 52 U/L High 13-35 [facility] Comment on above: Order Comment: Speci men Type: BLOOD SPECIMENOrdering Facility: [facility] Address: [address] [place] [address] Performed By: #### 1 9123-9, 2777-1, 90910-5, 78040-6 ####[facility] LABCLIA [id number] [address] [address] [place] Bilirubin [Mass/Vol] 0.9 mg/dL Normal 0.2-1.3 [facility] Comment on above: Order Comment: Speci men Type: BLOOD SPECIMENOrdering Facility: [facility] Address: [address] [place] [address] Performed By: #### 1 9123-9, 2777-1, 28068-5, 87630-3 ####[facility] LABIA [id number] [place] [id number] [place] Bilirubin.conjugate d [Mass/Vol] 0.3 mg/dL High <0.3 [facility] Comment on above: Order Comment: Speci men Type: BLOOD SPECIMENOrdering Facility: [facility] Address: [address] [place] [address] Performed By: #### 1 9123-9, 2777-1, 64367-9, 74401-5 ####[facility] LABIA [id number] [place] [id number] [place] Protein [Mass/Vol] 5.8 g/dL Low 6.3-8.0 [facility] Comment on above: Order Comment: Speci men Type: BLOOD SPECIMENOrdering Facility: [facility] Address: [address] [place] [address] Performed By: #### 1 9123-9, 2777-1, 72793-9, 67048-8 ####[facility] LABIA [id number] [address] [address] [place] Magnesium SerPl-mCncon 09-21 Magnesium [Mass/Vol] 1.7 mg/dL Normal 1.7-2.3 [facility] Comment on above: Order Comment: Speci men Type: BLOOD SPECIMENOrdering Facility: [facility] Address: [address] [place] [address] Performed By: #### 1 9123-9, 2777-1, 15824-7, 41277-3 ####[facility] LABCLIA [id number] [place] [address] [place] Phosphate SerPl-mCncon 09-21 Phosphate [Mass/Vol] 2.7 mg/dL Normal 2.7-4.8 [facility] Comment on above: Order Comment: Speci men Type: BLOOD SPECIMENOrdering Facility: [facility] Address: [address] [place] [address] Performed By: #### 1 9123-9, 2777-1, 68164-8, 05054-3 ####[facility] LABIA [id number] [address] [place] THERAPY NTon 09-21-2024 THERAPY NT Normal [facility] ANES PRE-OPon 09-20-2024 ANES PRE-OP Normal [facility] BRIEF OP NOTon 09-20-2024 BRIEF OP NOT Normal [facility] CBC panel Auto (Bld)on 09-20 Erythrocyte distribution width (RBC) [Ratio] 14.1 % Normal 11.5-15.0 [facility] Comment on above: Order Comment: Speci men Type: BLOOD SPECIMENOrdering Facility: [facility] Address: [address] [place] [address] Performed By: #### 5 8410-2 ####[facility] LABIA [id number] [place] [address] [place] Hematocrit (Bld) [Volume fraction] 35.4 % Low 36.0-46.0 [facility] Comment on above: Order Comment: Speci men Type: BLOOD SPECIMENOrdering Facility: [facility] Address: [address] [place] [address] Performed By: #### 5 8410-2 ####[facility] LABIA [id number] [place] [address] [place] Hemoglobin (Bld) [Mass/Vol] 11.1 g/dL Low 11.5-15.5 [facility] Comment on above: Order Comment: Speci men Type: BLOOD SPECIMENOrdering Facility: [facility] Address: [address] [place] [address] Performed By: #### 5 8410-2 ####[facility] LABIA [id number] [place] [address] [place] MCH (RBC) [Entitic mass] 28.5 pg Normal 26.0-34.0 [facility] Comment on above: Order Comment: Speci men Type: BLOOD SPECIMENOrdering Facility: [facility] Address: [address] [place] [address] Performed By: #### 5 8410-2 ####[facility] [id number] [place] [address] [place] MCHC (RBC) [Mass/Vol] 31.4 g/dL Normal 30.5-36.0 [facility] Comment on above: Order Comment: Speci men Type: BLOOD SPECIMENOrdering Facility: [facility] Address: [address] [place] [address] Performed By: #### 5 8410-2 ####[facility] [id number] [place] [address] [place] MCV (RBC) [Entitic vol] 90.8 fL Normal 80.0-100.0 [facility] Comment on above: Order Comment: Speci men Type: BLOOD SPECIMENOrdering Facility: [facility] Address: [address] [place] [address] Performed By: #### 5 8410-2 ####[facility] LABIA [id number] [place] [address] [place] Nucleated RBC (Bld) [#/Vol] 10*3/uL Normal <0.01 [facility] Comment on above: Order Comment: Speci men Type: BLOOD SPECIMENOrdering Facility: [facility] Address: [address] [place] [address] Performed By: #### 5 8410-2 ####[facility] LABIA [id number] [place] [address] [place] Platelet mean volume (Bld) [Entitic vol] 10.0 fL Normal 9.0-12.7 [facility] Comment on above: Order Comment: Speci men Type: BLOOD SPECIMENOrdering Facility: [facility] Address: [address] [place] [address] Performed By: #### 5 8410-2 ####[facility] LABIA [id number] [place] [address] [place] Platelets (Bld) [#/Vol] 137 10*3/uL Low 150-400 [facility] Comment on above: Order Comment: Speci men Type: BLOOD SPECIMENOrdering Facility: [facility] Address: [address] [place] [address] Result Comment: Resu lts checked and verified.No clot detected. Performed By: #### 5 8410-2 ####[facility] LABIA [id number] [place] [address] [place] RBC (Bld) [#/Vol] 3.90 10*6/uL Normal 3.90-5.20 [facility] Comment on above: Order Comment: Speci men Type: BLOOD SPECIMENOrdering Facility: [facility] Address: [address] [place] [address] Performed By: #### 5 8410-2 ####[facility] LABIA [id number] [place] [address] [place] WBC (Bld) [#/Vol] 7.72 10*3/uL Normal 3.70-11.00 [facility] Comment on above: Order Comment: Speci men Type: BLOOD SPECIMENOrdering Facility: [facility] Address: [address] [place] [address] Performed By: #### 5 8410-2 ####[facility] LABCLIA [id number] [place] [id number] [facility] [place] OPERATIVE NOon 09-20-2024 OPERATIVE NO Normal [facility] SURGICAL PATHOLOGYon 025 CASE REPORT Normal [facility] Comment on above: Order Comment: Speci men Type: TISSUE SPECIMENOrdering Facility: [facility] Address: [address] [place] [address] Result Comment: Surg ica Pathology Report Case: [id number] Provider: Anila De Paz MD Collected: 09/20/2024 11:38 AMOrdering Location: Admitting Received: 09/20/2024 02:49 PMPathologist: Susan Ku MDSpecimens: A) - Hernia Sac B) - Gallbladder Performed By: #### S ####[facility] LABCLIA [id number] [address] STATES OF [facility] CLINICAL HISTORY Normal [facility] Comment on above: Order Comment: Speci men Type: TISSUE SPECIMENOrdering Facility: [facility] Address: [address] [place] [address] Result Comment: Pre- op diagnosis:Hiatal hernia [K44.9]Epigastric pain [R10.13]Nausea and vomiting, unspecified vomiting type [R11.2]Pre-op exam [Z01.818] Performed By: #### S ####[facility] LABCLIA [id number] [address] FINAL DIAGNOSIS Normal [facility] Comment on above: Order Comment: Speci men Type: TISSUE SPECIMENOrdering Facility: [facility] Address: [address] [place] [address] Result Comment: A. H ernia sac, resection:- Benign fibroadipose tissue.B. Gallbladder, cholecystectomy:- Mild chronic cholecystitis. Performed By: #### S ####[facility] LABCLIA [id number] [place] [address] [place] FINAL PERFORMING LAB Normal [facility] Comment on above: Order Comment: Speci men Type: TISSUE SPECIMENOrdering Facility: [facility] Address: [address] [place] [address] Result Comment: Diag nostic interpretation performed at: [facility], [address] [place] [address] CLIA# [id number] Director: Rosales Quintana MD Performed By: #### S ####[facility] LABCLIA [id number] [place] [address] [place] GROSS DESCRIPTION A. Hernia Sac Normal [facility] Comment on above: Order Comment: Speci men Type: TISSUE SPECIMENOrdering Facility: [facility] Address: [address] [place] [address] Result Comment: Rece ived in formalin, labeled [...] The cystic duct margin (en face) and pharmaceutical representative sections of the gallbladder wall are submitted in B1.ANUSHA September 20, 2024 3:38 PMGross examination performed at [facility], [address] [place] [address] Performed By: #### S ####[facility] LABCLIA [id number] [place] [address] [place] Chest without Contraston Chest without Contrast [facility] Imaging Services [address] [place] [address] Chest without Contrast MR#: [id number] Acct: [id number] Name: LAUREN ALCARAZ Rep #: [id number] : 1940 F 84 From: Gunnar Carrero MD PCP: Dr. Chema Perry MD Status: REG ER Study: Chest without Contrast Date of Exam: 09/18/24 Exam# [id number] Ordering Dr: Susan Emery DO PROCEDURE: CHEST [...] use of iterative reconstruction technique). [facility] CC: Dr. Susan Emery DO; Dr. Chema Perry MD Insurance Assistant: Signed Normal [facility] Emergency Department Summary on 09-18-2024 Emergency Department Summary [facility] Medical Records Department [address] [place] [address] Emergency Department Summary 09/18/24 MR#: [id number] Acct: [id number] Name: LAUREN ALCARAZ Rep #: [id number] : 1940 84 From: Susan Emery DO [...] breath. Pain is worse with movement. PFSH [facility] Medical History Open wound of right [...] artery ( 1989) Atherosclerotic heart disease of [place] coronary artery without angina pectoris Essential hypertension [...] denosumab 60 mg/mL subcutaneous 60 mg subcut [id number] #1 mL Unknown Rx syringe (Prolia) BD [...] Rx vortiox (more content not included)... Normal [facility] CBC W Auto Differential pane l (Bld)on 09-14-2024 Basophils (Bld) [#/Vol] 10*3/uL Normal <0.11 [facility] Comment on above: Order Comment: Speci men Type: BLOOD SPECIMENOrdering Facility: [facility] Address: [address] [place] [address] Performed By: #### 5 7021-8 ####[facility] [id number] [place] [address] [place] Basophils/100 WBC (Bld) 0.2 % Normal [facility] Comment on above: Order Comment: Speci men Type: BLOOD SPECIMENOrdering Facility: [facility] Address: [address] [place] [address] Performed By: #### 5 7021-8 ####[facility] [id number] [place] [address] [place] Differential cell count method Nom (Bld) Auto Normal [facility] Comment on above: Order Comment: Speci men Type: BLOOD SPECIMENOrdering Facility: [facility] Address: [address] [place] [address] Performed By: #### 5 7021-8 ####[facility] [id number] [place] [address] [place] Eosinophils (Bld) [#/Vol] 0.10 10*3/uL Normal <0.46 [facility] Comment on above: Order Comment: Speci men Type: BLOOD SPECIMENOrdering Facility: [facility] Address: [address] [place] [address] Performed By: #### 5 7021-8 ####[facility], INCLIA [id number] [place] [address] [place] Eosinophils/100 WBC (Bld) 1.8 % Normal [facility] Comment on above: Order Comment: Speci men Type: BLOOD SPECIMENOrdering Facility: [facility] Address: [address] [place] [address] Performed By: #### 5 7021-8 ####[facility]ITALMORIAHStacy [id number] [place] [address] [place] Erythrocyte distribution width (RBC) [Ratio] 14.1 % Normal 11.5-15.0 [facility] Comment on above: Order Comment: Speci men Type: BLOOD SPECIMENOrdering Facility: [facility] Address: [address] [place] [address] Performed By: #### 5 7021-8 ####[facility] [id number] [place] [address] [place] Hematocrit (Bld) [Volume fraction] 34.6 % Low 36.0-46.0 [facility] Comment on above: Order Comment: Speci men Type: BLOOD SPECIMENOrdering Facility: [facility] Address: [address] [place] [address] Performed By: #### 5 7021-8 ####[facility]ITAL[facility] [id number] [place] [address] [place] Hemoglobin (Bld) [Mass/Vol] 11.2 g/dL Low 11.5-15.5 [facility] Comment on above: Order Comment: Speci men Type: BLOOD SPECIMENOrdering Facility: [facility] Address: [address] [place] [address] Performed By: #### 5 7021-8 ####[facility], INCLIA [id number] [place] [address] [place] Immature granulocytes (Bld) [#/Vol] 10*3/uL Normal <0.10 [facility] Comment on above: Order Comment: Speci men Type: BLOOD SPECIMENOrdering Facility: [facility] Address: [address] [place] [address] Performed By: #### 5 7021-8 ####[facility] [id number] [place] [address] [place] Immature granulocytes/100 WBC (Bld) 0.2 % Normal [facility] Comment on above: Order Comment: Speci men Type: BLOOD SPECIMENOrdering Facility: [facility] Address: [address] [place] [address] Performed By: #### 5 7021-8 ####[facility] [id number] [place] [address] [place] Lymphocytes (Bld) [#/Vol] 1.92 10*3/uL Normal 1.00-4.00 [facility] Comment on above: Order Comment: Speci men Type: BLOOD SPECIMENOrdering Facility: [facility] Address: [address] [place] [address] Performed By: #### 5 7021-8 ####[facility] [id number] [place] [address] [place] Lymphocytes/100 WBC (Bld) 35.0 % Normal [facility] Comment on above: Order Comment: Speci men Type: BLOOD SPECIMENOrdering Facility: [facility] Address: [address] [place] [address] Performed By: #### 5 7021-8 ####[facility] MILLWNCLIA [id number] [place] [address] [place] [facility] MCH (RBC) [Entitic mass] 29.4 pg Normal 26.0-34.0 [facility] Comment on above: Order Comment: Speci men Type: BLOOD SPECIMENOrdering Facility: [facility] Address: [address] [place] [address] Performed By: #### 5 7021-8 ####[facility] [id number] [place] [address] [place] MCHC (RBC) [Mass/Vol] 32.4 g/dL Normal 30.5-36.0 [facility] Comment on above: Order Comment: Speci men Type: BLOOD SPECIMENOrdering Facility: [facility] Address: [address] [place] [address] Performed By: #### 5 7021-8 ####[facility], INCLIA [id number] [place] [address] [place] MCV (RBC) [Entitic vol] 90.8 fL Normal 80.0-100.0 [facility] Comment on above: Order Comment: Speci men Type: BLOOD SPECIMENOrdering Facility: [facility] Address: [address] [place] [address] Performed By: #### 5 7021-8 ####[facility] [id number] [place] [address] [place] Monocytes (Bld) [#/Vol] 0.43 10*3/uL Normal <0.87 [facility] Comment on above: Order Comment: Speci men Type: BLOOD SPECIMENOrdering Facility: [facility] Address: [address] [place] [address] Performed By: #### 5 7021-8 ####[facility] [id number] [place] [address] [place] Monocytes/100 WBC (Bld) 7.8 % Normal [facility] Comment on above: Order Comment: Speci men Type: BLOOD SPECIMENOrdering Facility: [facility] Address: [address] [place] [address] Performed By: #### 5 7021-8 ####[facility] [id number] [place] [address] [place] Neutrophils (Bld) [#/Vol] 3.01 10*3/uL Normal 1.45-7.50 [facility] Comment on above: Order Comment: Speci men Type: BLOOD SPECIMENOrdering Facility: [facility] Address: [address] [place] [address] Performed By: #### 5 7021-8 ####[facility] [id number] [place] [address] [place] Neutrophils/100 WBC (Bld) 55.0 % Normal [facility] Comment on above: Order Comment: Speci men Type: BLOOD SPECIMENOrdering Facility: [facility] Address: [address] [place] [address] Performed By: #### 5 7021-8 ####[facility] [id number] [place] [address] [place] Nucleated RBC (Bld) [#/Vol] 10*3/uL Normal <0.01 [facility] Comment on above: Order Comment: Speci men Type: BLOOD SPECIMENOrdering Facility: [facility] Address: [address] [place] [address] Performed By: #### 5 7021-8 ####[facility], INCLIA [id number] [place] [address] [place] Nucleated RBC/100 WBC (Bld) [Ratio] 0.0 /100 WBC Normal [facility] Comment on above: Order Comment: Speci men Type: BLOOD SPECIMENOrdering Facility: [facility] Address: [address] [place] [address] Performed By: #### 5 7021-8 ####[facility] RAFITA ISANCJESUS [id number] [place] [address] [place] Platelet mean volume (Bld) [Entitic vol] 10.1 fL Normal 9.0-12.7 [facility] Comment on above: Order Comment: Speci men Type: BLOOD SPECIMENOrdering Facility: [facility] Address: [address] [place] [address] Performed By: #### 5 7021-8 ####[facility]ITALNCJESUS [id number] [place] [address] [place] Platelets (Bld) [#/Vol] 148 10*3/uL Low 150-400 [facility] Comment on above: Order Comment: Speci men Type: BLOOD SPECIMENOrdering Facility: [facility] Address: [address] [place] [address] Performed By: #### 5 7021-8 ####[facility]ITALNCLIA [id number] [place] [address] [place] RBC (Bld) [#/Vol] 3.81 10*6/uL Low 3.90-5.20 [facility] Comment on above: Order Comment: Speci men Type: BLOOD SPECIMENOrdering Facility: [facility] Address: [address] [place] [address] Performed By: #### 5 7021-8 ####[facility]ITALNCLIA [id number] [place] [address] [place] WBC (Bld) [#/Vol] 5.48 10*3/uL Normal 3.70-11.00 [facility] Comment on above: Order Comment: Speci men Type: BLOOD SPECIMENOrdering Facility: [facility] Address: [address] [place] [address] Performed By: #### 5 7021-8 ####[facility]ITALWNCLIA [id number] [place] [address] [place] CONFIRM BLOOD TYPEon 025 ABO A Normal [facility] Comment on above: Order Comment: Speci men Type: BLOOD SPECIMENOrdering Facility: [facility] Address: [address] [place] [address] Performed By: #### C ONABO ####CC MAIN BLOOD BANKCLIA [id number] [place] [address] [place] Rh Nom (Bld) Positive Normal [facility] Comment on above: Order Comment: Speci men Type: BLOOD SPECIMENOrdering Facility: [facility] Address: [address] [place] [address] Performed By: #### C ONABO ####CC MAIN BLOOD BANKCLIA [id number] [place] [address] [place] Comprehensive metabolic 2000 panelon 09-14-2024 Albumin [Mass/Vol] 3.9 g/dL Normal 3.9-4.9 [facility] Comment on above: Order Comment: Speci men Type: BLOOD SPECIMENOrdering Facility: [facility] Address: [address] [place] [address] Performed By: #### 2 4323-8 ####[facility]ITALWNCLIA [id number] [place] [address] [place] ALP [Catalytic activity/Vol] 66 U/L Normal 34-123 [facility] Comment on above: Order Comment: Speci men Type: BLOOD SPECIMENOrdering Facility: [facility] Address: [address] [place] [address] Performed By: #### 2 4323-8 ####[facility]ITALWNCLIA [id number] [place] [address] [place] ALT [Catalytic activity/Vol] 15 U/L Normal 7-38 [facility] Comment on above: Order Comment: Speci men Type: BLOOD SPECIMENOrdering Facility: [facility] Address: [address] [place] [address] Performed By: #### 2 4323-8 ####[facility] RAFITA MILLWNCLIA [id number] [place] [address] [place] Anion gap [Moles/Vol] 7 mmol/L Low 8-15 [facility] Comment on above: Order Comment: Speci men Type: BLOOD SPECIMENOrdering Facility: [facility] Address: [address] [place] [address] Performed By: #### 2 4323-8 ####[facility], INCLIA [id number] [place] [address] [place] AST [Catalytic activity/Vol] 20 U/L Normal 13-35 [facility] Comment on above: Order Comment: Speci men Type: BLOOD SPECIMENOrdering Facility: [facility] Address: [address] [place] [address] Performed By: #### 2 4323-8 ####[facility]ITALNCLIA [id number] [place] [address] [place] Bilirubin [Mass/Vol] 0.3 mg/dL Normal 0.2-1.3 [facility] Comment on above: Order Comment: Speci men Type: BLOOD SPECIMENOrdering Facility: [facility] Address: [address] [place] [address] Performed By: #### 2 4323-8 ####[facility], INCLIA [id number] [place] [address] [place] Calcium [Mass/Vol] 9.3 mg/dL Normal 8.5-10.2 [facility] Comment on above: Order Comment: Speci men Type: BLOOD SPECIMENOrdering Facility: [facility] Address: [address] [place] [address] Performed By: #### 2 4323-8 ####[facility]ITALNCLIA [id number] [place] [address] [place] Chloride [Moles/Vol] 106 mmol/L Normal 98-107 [facility] Comment on above: Order Comment: Speci men Type: BLOOD SPECIMENOrdering Facility: [facility] Address: [address] [place] [address] Performed By: #### 2 4323-8 ####[facility]ENTERA [id number] [place] [address] [place] CO2 [Moles/Vol] 27 mmol/L Normal 22-30 [facility] Comment on above: Order Comment: Speci men Type: BLOOD SPECIMENOrdering Facility: [facility] Address: [address] [place] [address] Performed By: #### 2 4323-8 ####[facility], INCLIA [id number] [place] [address] [place] Creatinine [Mass/Vol] 0.99 mg/dL High 0.58-0.96 [facility] Comment on above: Order Comment: Speci men Type: BLOOD SPECIMENOrdering Facility: [facility] Address: [address] [place] [address] Performed By: #### 2 4323-8 ####[facility], INCLIA [id number] [place] [address] [place] Creatinine and Glomerular filtration rate.predicted panel (S/P/Bld) 57 mL/min/1.73m??? Low >=60 [facility] Comment on above: Order Comment: Speci men Type: BLOOD SPECIMENOrdering Facility: [facility] Address: [address] [place] [address] Result Comment: Brandy mated Glomerular Filtration Rate [...] actual GFR. Performed By: #### 2 4323-8 ####[facility] HOSPITALMORIAHLIStacy [id number] [place] [address] [place] Glucose [Mass/Vol] 92 mg/dL Normal 74-99 [facility] Comment on above: Order Comment: Ramirez gamez Type: BLOOD SPECIMENOrdering Facility: [facility] Address: [address] [place] [address] Result Comment: The [place] Diabetes Association (ADA) provides guidance for cutoff [...] Standards of Medical Care in Diabetes 2016, French Diabetes Association. Diabetes Care. 2016.39(Suppl 1). Performed By: #### 2 4323-8 ####[facility] [id number] [place] [address] [place] Potassium [Moles/Vol] 4.1 mmol/L Normal 3.7-5.1 [facility] Comment on above: Order Comment: Ramirez gamez Type: BLOOD SPECIMENOrdering Facility: [facility] Address: [address] [place] [id number] Performed By: #### 2 4323-8 ####[facility] HOSPITALNCLIStacy [id number] [place] [address] [place] Protein [Mass/Vol] 6.4 g/dL Normal 6.3-8.0 [facility] Comment on above: Order Comment: Speci men Type: BLOOD SPECIMENOrdering Facility: [facility] Address: [address] [place] [address] Performed By: #### 2 4323-8 ####[facility] HOSPITALWCALIA [id number] [place] [address] [place] Sodium [Moles/Vol] 140 mmol/L Normal 136-144 [facility] Comment on above: Order Comment: Speci men Type: BLOOD SPECIMENOrdering Facility: [facility] Address: [address] [place] [address] Performed By: #### 2 4323-8 ####[facility] [id number] [place] [address] [place] Urea nitrogen [Mass/Vol] 34 mg/dL High 7- [facility] Comment on above: Order Comment: Speci men Type: BLOOD SPECIMENOrdering Facility: [facility] Address: [address] [place] [address] Performed By: #### 2 4323-8 ####[facility] [id number] [place] [address] [place] HISTORY PHYSICALon HISTORY PHYSICAL Normal [facility] LIPID PANEL, NONFASTINGon Cholesterol [Mass/Vol] 137 mg/dL Normal <200 [facility] Comment on above: Order Comment: Speci men Type: BLOOD SPECIMENOrdering Facility: [facility] Address: [address] [place] [address] Result Comment: <200 mg/dL, Desirable 200-239 mg/dL, Borderline high>239 mg/dL, High Performed By: #### L IPNF ####[facility] LABCLIA [id number] [facility]ENTERDESK [place] [address] [place] HDL CHOLESTEROL, NF 63 mg/dL Normal >39 [facility] Comment on above: Order Comment: Speci men Type: BLOOD SPECIMENOrdering Facility: [facility] Address: [address] [place] [address] Result Comment: 40-5 9 mg/dL, Acceptable>59 mg/dL, High: Negative risk factor for coronary heart disease<40 mg/dL, Low: Positive risk factor for coronary heart disease Performed By: #### L IPNF ####[facility] LABCLIA [id number] [address] LDL CHOLESTEROL, NF 61 mg/dL Normal <100 [facility] Comment on above: Order Comment: Corinei franco Type: BLOOD SPECIMENOrdering Facility: [facility] Address: [address] [place] [address] Result Comment: <100 mg/dL, Optimal 100-129 mg/dL, Near optimal/above optimal 130-159 mg/dL, Borderline high 160-189 mg/dL, High>189 mg/dL, Very highSecondary prevention optimal LDL Cholesterol levels are recommended to be < 70 mg/dL Performed By: #### L IPNF ####[facility] LABCLIA [id number] [address] LDL/HDL RATIO, NF 0.97 mg/dL Normal <2.54 [facility] Comment on above: Order Comment: Corinehakeem gamez Type: BLOOD SPECIMENOrdering Facility: [facility] Address: [address] [place] [address] Result Comment: Refe rence:1. National Cholesterol Education Program ATP III Guideline At-A-Glance Quick Desk Reference: National Heart, Lung, and Blood Bard. National Institutes of Health. 2001: NIH Publication No. 01-3305.2. An International Atherosclerosis Society position paper: global recommendations for the management of dyslipidemia: executive summary, Atherosclerosis. 2014: 232(2):410-413. Performed By: #### L IPNF ####[facility] LABCLIA [id number] [address] [place] NON HDL CHOL, NF 74 mg/dL Normal <130 [facility] Comment on above: Order Comment: Speci men Type: BLOOD SPECIMENOrdering Facility: [facility] Address: [address] [place] [address] Result Comment: <130 mg/dL, Optimal 130-159 mg/dL, Near optimal/above optimal 160-189 mg/dL, Borderline high 190-219 mg/dL, High>219 mg/dL, Very highSecondary prevention optimal non HDL Cholesterol levels are recommended to be <100 mg/dL Performed By: #### L IPNF ####[facility] LABCLIA [id number] [place] [address] [place] T CHOL/HDL RATIO NF 2.17 mg/dL Normal <5.10 [facility] Comment on above: Order Comment: Speci men Type: BLOOD SPECIMENOrdering Facility: [facility] Address: [address] [place] [address] Performed By: #### L IPNF ####[facility] LABCLIA [id number] [place] [address] [place] TRIGLYCERIDES, NF 65 mg/dL Normal <150 [facility] Comment on above: Order Comment: Speci men Type: BLOOD SPECIMENOrdering Facility: [facility] Address: [address] [place] [address] Result Comment: <150 mg/dL, Normal 150-199 mg/dL, Borderline high 200-499 mg/dL, High>499 mg/dL, Very high Performed By: #### L IPNF ####[facility] LABCLIA [id number] [place] [address] [place] VLDL CHOLESTEROL, NF 13 mg/dL Normal <30 [facility] Comment on above: Order Comment: Speci men Type: BLOOD SPECIMENOrdering Facility: [facility] Address: [address] [place] [address] Performed By: #### L IPNF ####[facility] LABCLIA [id number] [place] [address] [place] TYPE AND SCREEN,30 DAYon ABO A Normal [facility] Comment on above: Order Comment: Speci men Type: BLOOD SPECIMENOrdering Facility: [facility] Address: [address] [place] [address] Performed By: #### T SCR30 ####CC MAIN BLOOD BANKCLIA [id number] [place] [address] [place] Rh Nom (Bld) Positive Normal [facility] Comment on above: Order Comment: Speci men Type: BLOOD SPECIMENOrdering Facility: [facility] Address: [address] [place] [address] Performed By: #### T SCR30 ####CC MAIN BLOOD BANKCLIA [id number] [place] [address] [place] ANES POSTPROC EVALon 025 ANES POSTPROC EVAL Normal [facility] ANES PRE-OPon 09-13-2024 ANES PRE-OP Normal [facility] EGD Study observation Narrat iveon 09-13-2024 [facility] Radiology Study observation (narrative) [facility] ERCPon 09-13-2024 ERCP Normal [facility] ERCP Study observation Narra tiveon 09-13-2024 [facility] Radiology Study observation (narrative) [facility] HISTORY PHYSICALon HISTORY PHYSICAL Normal [facility] NURSING PROGon 09-13-2024 NURSING PROG Normal [facility] NURSING PROG Normal [facility] NURSING PROG Normal [facility] Upper EUSon 09-13-2024 Upper EUS Normal [facility] EMG(NEURO/NI)on 09-10-2024 Results can be seen in attached scanned documents. If you are a patient reviewing this test result, call the doctor who ordered the test with any questions. [facility] CNPNon 09-09-2024 CNPN Normal [facility] CNPNon 09-08-2024 CNPN Normal [facility] [...] Unremarkable. DIVISION OF RADIOLOGY [facility]/07/[facility]24 * [...] be communicated with the ordering provider via [employer] staff message or phone message by [employer] within 2 business days of report finalization. --END OF FINDING-- Insurance Assistant: ARTHUR Transcribe Date/Time: Sep 07 2024 10:32A Dictated by : VON COLES DO This examination was interpreted and the report reviewed and electronically signed by: PIA DAVEY MD on Sep 07 2024 3:23PM EST [facility] MR Unspecified body region 3 D post processingon 09-07-2024 * * *Final Report* * * DATE OF EXAM: Sep 07 2024 9:50AM [facility] 0280 - MRI 3D POST PROCESSING [...] Lower chest: Unremarkable. DIVISION OF RADIOLOGY Provider, [facility] - 09/07/2024 * * *Final Report* * * DATE OF EXAM: Sep 07 2024 9:50AM [facility] 0280 - MRI 3D POST PROCESSING [...] be communicated with the ordering provider via [employer] staff message or phone message by [employer] within 2 business days of report finalization. --END OF FINDING-- Insurance Assistant: ARTHUR Transcribe Date/Time: Sep 07 2024 10:32A Dictated by : VON COLES, DO This examination was interpreted and the report reviewed and electronically signed by: PIA DAVEY MD on Sep 07 2024 3:23PM EST [facility] MRI 3D POST PROCESSINGon MRI 3D POST PROCESSING Invalid Interpretation Code [facility] MRI PANC/MAGNOLIA WO/W IVCONon MRI PANC/MAGNOLIA WO/W IVCON Invalid Interpretation Code [facility] No Panel InformationOrdered By: Ccf Provider on 09-07-2024 Interpretation and review of laboratory results Abnormal [facility] Radiology Result ACTIONABLE Abnormal [facility] Comment on above: This report contains an [...] contact your provider for the next steps. [facility] No Panel Informationon 09-07 IMPRESSION: Persistent marked [...] be communicated with the ordering provider via [employer] staff message or phone message by [employer] within 2 business days of report finalization. --END OF FINDING-- Insurance Assistant: ARTHUR Transcribe Date/Time: Sep 07 2024 10:32A Dictated by : VON COLES, DO This examination was interpreted and the report reviewed and electronically signed by: PIA DAVEY MD on Sep 07 2024 3:23PM EST DIVISION OF RADIOLOGY Radiology Study observation (narrative) [facility] CNPNon 09-06-2024 CNPN Normal [facility] CNCNPATEDon 09-03-2024 CNCNPATED Normal [facility] CNOVon 09-03-2024 CNOV Normal [facility] HISTORY PHYSICALon HISTORY PHYSICAL Normal [facility] CNPNon 08-25-2024 CNPN Normal [facility] US CAROTID ARTERIES MAGNOLIA VAS LABon 08-25-2024 US CAROTID ARTERIES MAGNOLIA VAS LAB Normal [facility] CBC panel Auto (Bld)on 08-09 Erythrocyte distribution width (RBC) [Ratio] 13.9 % Normal 11.5-15.0 [facility] Comment on above: Order Comment: Speci men Type: BLOOD SPECIMENOrdering Facility: [facility] Address: [address] [place] [address] Performed By: #### 5 8410-2 ####[facility] LABCLIA [id number] [place] [address] [place] Hematocrit (Bld) [Volume fraction] 38.9 % Normal 36.0-46.0 [facility] Comment on above: Order Comment: Speci men Type: BLOOD SPECIMENOrdering Facility: [facility] Address: [address] [place] [address] Performed By: #### 5 8410-2 ####[facility] LABIA [id number] [place] [address] [place] Hemoglobin (Bld) [Mass/Vol] 12.3 g/dL Normal 11.5-15.5 [facility] Comment on above: Order Comment: Speci men Type: BLOOD SPECIMENOrdering Facility: [facility] Address: [address] [place] [address] Performed By: #### 5 8410-2 ####[facility] LABCLIA [id number] [place] [address] [place] MCH (RBC) [Entitic mass] 29.6 pg Normal 26.0-34.0 [facility] Comment on above: Order Comment: Speci men Type: BLOOD SPECIMENOrdering Facility: [facility] Address: [address] [place] [address] Performed By: #### 5 8410-2 ####[facility] LABIA [id number] [place] [address] [place] MCHC (RBC) [Mass/Vol] 31.6 g/dL Normal 30.5-36.0 [facility] Comment on above: Order Comment: Speci men Type: BLOOD SPECIMENOrdering Facility: [facility] Address: [address] [place] [address] Performed By: #### 5 8410-2 ####[facility] LABCLIA [id number] [place] [address] [place] MCV (RBC) [Entitic vol] 93.7 fL Normal 80.0-100.0 [facility] Comment on above: Order Comment: Speci men Type: BLOOD SPECIMENOrdering Facility: [facility] Address: [address] [place] [address] Performed By: #### 5 8410-2 ####[facility] LABCLIA [id number] [place] [address] [place] Nucleated RBC (Bld) [#/Vol] 10*3/uL Normal <0.01 [facility] Comment on above: Order Comment: Speci men Type: BLOOD SPECIMENOrdering Facility: [facility] Address: [address] [place] [address] Performed By: #### 5 8410-2 ####[facility] LABCLIA [id number] [place] [address] [place] Platelet mean volume (Bld) [Entitic vol] 10.4 fL Normal 9.0-12.7 [facility] Comment on above: Order Comment: Speci men Type: BLOOD SPECIMENOrdering Facility: [facility] Address: [address] [place] [address] Performed By: #### 5 8410-2 ####[facility] LABCLIA [id number] [place] [address] [place] Platelets (Bld) [#/Vol] 210 10*3/uL Normal 150-400 [facility] Comment on above: Order Comment: Speci men Type: BLOOD SPECIMENOrdering Facility: [facility] Address: [address] [place] [address] Performed By: #### 5 8410-2 ####[facility] LABIA [id number] [place] [address] [place] RBC (Bld) [#/Vol] 4.15 10*6/uL Normal 3.90-5.20 [facility] Comment on above: Order Comment: Speci men Type: BLOOD SPECIMENOrdering Facility: [facility] Address: [address] [place] [address] Performed By: #### 5 8410-2 ####[facility] LABIA [id number] [place] [address] [place] WBC (Bld) [#/Vol] 5.66 10*3/uL Normal 3.70-11.00 [facility] Comment on above: Order Comment: Speci men Type: BLOOD SPECIMENOrdering Facility: [facility] Address: [address] [place] [address] Performed By: #### 5 8410-2 ####[facility] LABIA [id number] [place] [address] [place] Comprehensive metabolic 2000 panelon 08-09-2024 Albumin [Mass/Vol] 3.7 g/dL Low 3.9-4.9 [facility] Comment on above: Order Comment: Speci men Type: BLOOD SPECIMENOrdering Facility: [facility] Address: [address] [place] [address] Performed By: #### 2 4323-8 ####[facility] LABIA [id number] [place] [address] [place] ALP [Catalytic activity/Vol] 70 U/L Normal 34-123 [facility] Comment on above: Order Comment: Speci men Type: BLOOD SPECIMENOrdering Facility: [facility] Address: [address] [place] [address] Performed By: #### 2 4323-8 ####[facility] LABCLIA [id number] [facility] [place] [id number] [place] ALT [Catalytic activity/Vol] 19 U/L Normal 7-38 [facility] Comment on above: Order Comment: Speci men Type: BLOOD SPECIMENOrdering Facility: [facility] Address: [address] [place] [address] Performed By: #### 2 4323-8 ####[facility] LABCLIA [id number] [place] [address] [place] Anion gap [Moles/Vol] 12 mmol/L Normal 8-15 [facility] Comment on above: Order Comment: Speci men Type: BLOOD SPECIMENOrdering Facility: [facility] Address: [address] [place] [address] Performed By: #### 2 4323-8 ####[facility] LABCLIA [id number] [place] [address] [place] AST [Catalytic activity/Vol] 29 U/L Normal 13-35 [facility] Comment on above: Order Comment: Speci men Type: BLOOD SPECIMENOrdering Facility: [facility] Address: [address] [place] [address] Performed By: #### 2 4323-8 ####[facility] LABCLIA [id number] [place] [address] [place] Bilirubin [Mass/Vol] 0.4 mg/dL Normal 0.2-1.3 [facility] Comment on above: Order Comment: Speci men Type: BLOOD SPECIMENOrdering Facility: [facility] Address: [address] [place] [address] Performed By: #### 2 4323-8 ####[facility] LABCLIA [id number] [place] [id number] [place] Calcium [Mass/Vol] 9.0 mg/dL Normal 8.5-10.2 [facility] Comment on above: Order Comment: Speci men Type: BLOOD SPECIMENOrdering Facility: [facility] Address: [address] [place] [address] Performed By: #### 2 4323-8 ####[facility] LABCLIA [id number] [place] [address] [place] Chloride [Moles/Vol] 104 mmol/L Normal 98-107 [facility] Comment on above: Order Comment: Speci men Type: BLOOD SPECIMENOrdering Facility: [facility] Address: [address] [place] [address] Performed By: #### 2 4323-8 ####[facility] LABCLIA [id number] [place] [address] [place] CO2 [Moles/Vol] 23 mmol/L Normal 22-30 [facility] Comment on above: Order Comment: Speci men Type: BLOOD SPECIMENOrdering Facility: [facility] Address: [address] [place] [address] Performed By: #### 2 4323-8 ####[facility] LABCLIA [id number] [place] [address] [place] Creatinine [Mass/Vol] 0.85 mg/dL Normal 0.58-0.96 [facility] Comment on above: Order Comment: Speci men Type: BLOOD SPECIMENOrdering Facility: [facility] Address: [address] [place] [address] Performed By: #### 2 4323-8 ####[facility] LABCLIA [id number] [place] [address] [place] Creatinine and Glomerular filtration rate.predicted panel (S/P/Bld) 69 mL/min/1.73m??? Normal >=60 [facility] Comment on above: Order Comment: Speci men Type: BLOOD SPECIMENOrdering Facility: [facility] Address: [address] [place] [address] Result Comment: Brandy mated Glomerular Filtration Rate [...] actual GFR. Performed By: #### 2 4323-8 ####[facility] LABCLIA [id number] [place] [address] [place] Glucose [Mass/Vol] 121 mg/dL High 74-99 [facility] Comment on above: Order Comment: Ramirez gamez Type: BLOOD SPECIMENOrdering Facility: [facility] Address: [address] [place] [address] Result Comment: The [place] Diabetes Association (ADA) provides guidance for cutoff [...] Standards of Medical Care in Diabetes 2016, [place] Diabetes Association. Diabetes Care. 2016.39(Suppl 1). Performed By: #### 2 4323-8 ####[facility] LABIA [id number] [place] [id number] [place] Potassium [Moles/Vol] 4.7 mmol/L Normal 3.7-5.1 [facility] Comment on above: Order Comment: Ramirez gamez Type: BLOOD SPECIMENOrdering Facility: [facility] Address: [address] [place] [address] Performed By: #### 2 4323-8 ####[facility] LABIA [id number] [address] [address] [place] Protein [Mass/Vol] 6.5 g/dL Normal 6.3-8.0 [facility] Comment on above: Order Comment: Speci men Type: BLOOD SPECIMENOrdering Facility: [facility] Address: [address] [place] [address] Performed By: #### 2 4323-8 ####[facility] LABCLIA [id number] [place] [address] [place] Sodium [Moles/Vol] 139 mmol/L Normal 136-144 [facility] Comment on above: Order Comment: Speci men Type: BLOOD SPECIMENOrdering Facility: [facility] Address: [address] [place] [address] Performed By: #### 2 4323-8 ####[facility] LABCLIA [id number] [place] [address] [place] Urea nitrogen [Mass/Vol] 20 mg/dL Normal 7-21 [facility] Comment on above: Order Comment: Speci men Type: BLOOD SPECIMENOrdering Facility: [facility] Address: [address] [place] [address] Performed By: #### 2 4323-8 ####[facility] LABCLIA [id number] [place] [address] [place] PROTEIN ELECTROPHORESIS SERU M (P)on 08-09-2024 Albumin [Mass/Vol] 3.66 g/dL Normal 3.43-5.41 [facility] Comment on above: Order Comment: Speci men Type: BLOOD SPECIMENOrdering Facility: [facility] Address: [address] [place] [address] Performed By: #### L [id number] ####[facility] LABCLIA [id number] [place] [id number] [place] Alpha 1 globulin Elph [Mass/Vol] 0.25 g/dL Normal 0.18-0.43 [facility] Comment on above: Order Comment: Speci men Type: BLOOD SPECIMENOrdering Facility: [facility] Address: [address] [place] [address] Performed By: #### L [id number] ####[facility] LABCLIA [id number] [place] [address] [place] Alpha 2 globulin Elph [Mass/Vol] 0.67 g/dL Normal 0.42-0.98 [facility] Comment on above: Order Comment: Speci men Type: BLOOD SPECIMENOrdering Facility: [facility] Address: [address] [place] [address] Performed By: #### L [id number] ####[facility] LABCLIA [id number] [place] [address] [place] Beta globulin Elph [Mass/Vol] 0.73 g/dL Normal 0.61-1.17 [facility] Comment on above: Order Comment: Speci men Type: BLOOD SPECIMENOrdering Facility: [facility] Address: [address] [place] [address] Performed By: #### L [id number] ####[facility] LABCLIA [id number] [place] [address] [place] Gamma globulin Elph [Mass/Vol] 0.89 g/dL Normal 0.53-1.51 [facility] Comment on above: Order Comment: Speci men Type: BLOOD SPECIMENOrdering Facility: [facility] Address: [address] [place] [address] Performed By: #### L [id number] ####[facility] LABCLIA [id number] [place] [address] [place] M-PROTEIN LOCATION Normal [facility] Comment on above: Order Comment: Speci men Type: BLOOD SPECIMENOrdering Facility: [facility] Address: [address] [place] [address] Result Comment: Not Applicable. Performed By: #### L [id number] ####[facility] LABCLIA [id number] [address] STATES OF [facility] Protein Fractions [Interp] No definitive M protein is identified on protein electrophoresis. Normal No definitive M protein is identified on protein electrophor esis. [facility] Comment on above: Order Comment: Speci men Type: BLOOD SPECIMENOrdering Facility: [facility] Address: [address] [place] [address] Performed By: #### L [id number] ####[facility] LABCLIA [id number] [place] [address] [place] Protein.monoclonal Elph [Mass/Vol] 0.00 g/dL Normal <=0.00 [facility] Comment on above: Order Comment: Speci men Type: BLOOD SPECIMENOrdering Facility: [facility] Address: [address] [place] [address] Performed By: #### L [id number] ####[facility] LABIA [id number] [place] [address] [place] SPE STAFF REVIEW Reviewed by Dr. Glenys Pierre MD [facility] Comment on above: Order Comment: Speci men Type: BLOOD SPECIMENOrdering Facility: [facility] Address: [address] [place] [address] Performed By: #### L [id number] ####[facility] LABIA [id number] [place] [address] [place] Prot SerPl-mCncon 08-09-2024 Protein [Mass/Vol] 6.2 g/dL Low 6.3-8.0 [facility] Comment on above: Order Comment: Speci men Type: BLOOD SPECIMENOrdering Facility: [facility] Address: [address] [place] [address] Performed By: #### 2 885-2, 2132-9 ####[facility] LABCLIA [id number] [place] [address] [place] VITAMIN B1 (THIAMINE), WHOLE BLOODon 08-09-2024 Thiamine (Bld) [Moles/Vol] 220.5 nmol/L High 84.3-213.3 [facility] Comment on above: Order Comment: Speci men Type: BLOOD SPECIMENOrdering Facility: [facility] Address: [address] [place] [address] Performed By: #### B 1WB ####[facility] LABCLIA [id number] [place] [address] [place] VITAMIN B6/PYRIDOXINon 08-09 VITAMIN B6 47.3 nmol/L Normal 20.0-125.0 [facility] Comment on above: Order Comment: Speci men Type: BLOOD SPECIMENOrdering Facility: [facility] Address: [address] [place] [address] Result Comment: INTE RPRETIVE INFORMATION: Vitamin B6 (Pyridoxal 5-Phosphate)Pyridoxal 5'-phosphate measured in a specimen collected followingan 8-hour or overnight fast accurately indicates vitamin V4zjeqltywyyn status. Non-fasting specimen concentration reflectsrecent vitamin intake.This test was developed and its performance characteristicsdetermined by [facility]. It has not been cleared orapproved by the [place] Food and Drug Administration. This test wasperformed in a CLIA certified laboratory and is intended forclinical purposes.Performed By: [facility] [place] [id number] Director: Estelle Bravo MD, PhDCLIA Number: [id number] Performed By: #### V ITB6 ####[facility] [id number] [place] [address] Vit B12 SerPl-mCncon 024 Cobalamin (Vitamin B12) [Mass/Vol] 1662 pg/mL High 232-1245 [facility] Comment on above: Order Comment: Speci men Type: BLOOD SPECIMENOrdering Facility: [facility] Address: [address] [place] [address] Performed By: #### 2 885-2, 2132-9 ####[facility] LABCLIA [id number] [place] [address] [place] CNOVon 08-06-2024 CNOV Normal [facility] CNOVon 08-03-2024 CNOV Normal [facility] ECG COMPLETEon 08-03-2024 Atrial Rate 75 BPM [facility] Calculated P [place] 42 degrees [facility] Calculated R [place] -38 degrees [facility] Calculated T [place] 49 degrees [facility] P-R Interval 188 ms [facility] QRS Duration 78 ms [facility] QT Interval 402 ms [facility] QTC Calculation (Bazett) 448 ms [facility] Ventricular Rate 75 BPM [facility] NAME : HUYEN ALCARAZ PID : [id number] : 1940 Gender : Female Race : ORD : [id number] Procedure Date : Aug 03 2024 15:41:45 Edit Date : Aug 03 2024 16:15:10 Diagnosis: NORMAL SINUS RHYTHM LEFT AXIS DEVIATION POOR R WAVE PROGRESSION INFERIOR MYOCARDIAL INFARCTION , AGE UNDETERMINED ABNORMAL ECG Confirmed by MD MARCIAL QARAB ([id number]), food editor TONYA IVEY ([id number]) on 08/03/2024 4:15:08 PM Test Reason : I25.2 H/O acute myocardial infarction Location : 137 : STCARD Overread By : MD MARCIAL QARAB Edited By : TONYA IVEY Referred By : ANILA DE PAZ Acquired by : , [facility] ECG COMPLETE Normal [facility] ANES POSTPROC EVALon 024 ANES POSTPROC EVAL Normal [facility] ANES PRE-OPon 07-21-2024 ANES PRE-OP Normal [facility] EGD Study observation Narrat iveon 07-21-2024 [facility] Radiology Study observation (narrative) [facility] NURSING PROGon 07-21-2024 NURSING PROG Normal [facility] NURSING PROG Normal [facility] Upper GI endoscopyon 024 Upper GI endoscopy Normal [facility] CNPNon 07-19-2024 CNPN Normal [facility] Knee 4 or More Viewson 07-19 Knee 4 or More Views [facility] [address] [place] [address] Knee 4 or More Views MR#: [id number] Acct: [id number] Name: LAUREN ALCARAZ Rep #: [id number] : 1940 F 83 From: Ezio East MD PCP: Status: DEP AMB Study: Knee 4 or More Views Date of Exam: 07/19/24 Exam# [id number] Ordering Dr: Christopher Turk DO [id number] STUDY: X-RAY - LEFT KNEE REASON FOR [...] EST , CC: Dr. Christopher Turk DO Insurance Assistant: Signed Normal [facility] Orthopedic Visit Reporton Orthopedic Visit Report [facility] [address] [place] [address] OFFICE VISIT Date of Service: 07/19/24 MR#: [id number] Acct: [id number] Name: LAUREN ALCARAZ Rep #: [id number] : 1940 Provider: Dr. Christopher chan DO Age/Sex: 83/F Location: [facility] Status: Signed Intake Vital Signs 06/07/24 08:51 [...] denosumab 60 mg/mL subcutaneous 60 mg subcut [id number] #1 mL 02/18/24 07/19/24 Rx syringe (Prolia) [...] you fallen in the past year?: No [facility] Medical History Open wound of right [...] artery ( 1989) Atherosclerotic heart disease of [place] coronary artery without angina pectoris Essential hypertension Influenza A Health care maintenance Fa (more content not included)... Normal [facility] HISTORY PHYSICALon HISTORY PHYSICAL Normal [facility] CNPNon 07-14-2024 CNPN Normal [facility] Orthopedic Visit Reporton Orthopedic Visit Report [facility] [address] [place] [address] OFFICE VISIT Date of Service: 07/12/24 MR#: [id number] Acct: [id number] Name: LAUREN ALCARAZ Rep #: [id number] : 1940 Provider: Dr. Christopher chan DO Age/Sex: 83/F Location: [facility] Status: Signed Intake Vital Signs 06/07/24 08:51 [...] denosumab 60 mg/mL subcutaneous 60 mg subcut [id number] #1 mL 02/18/24 07/12/24 Rx syringe (Prolia) [...] artery ( 1989) Atherosclerotic heart disease of [place] coronary artery without angina pectoris Essential hypertension Influenza A Health care maintenance Falls frequently Cancer Depression Dementia Walker as ambulation aid Arthritis Bladder disease Low iron DVT (deep venous thrombosis) High cholesterol Restless legs Back pain TIA (transient ischemic attack) Seizures Difficulty swallowing Gastric reflux Non-smoker Asthma Shortness of breath on exertion Hx of echocardiogram Hist (more content not included)... Normal [facility] CNPNon 07-07-2024 CNPN Normal [facility] MR/BMS.IMBon 07-07-2024 MR/BMS.IMB [facility] [address] [place] [address] OFFICE VISIT Date of Service: 07/07/24 MR#: [id number] Acct: [id number] Name: LAUREN ALCARAZ Rep #: [id number] : 1940 Provider: Dr. Chema williamson MD Age/Sex: 83/F Location: [facility] Status: Signed Intake Vital Signs 06/07/24 08:51 [...] Reasons: Surgery Clearance Chief Complaint: surgery clearance Local Sales Associate Required: No Accompanied by: Self Is patient [...] denosumab 60 mg/mL subcutaneous 60 mg subcut [id number] #1 mL 02/18/24 07/07/24 Rx syringe (Prolia) [...] fallen in the past year?: Yes (06/28/2024) [facility] Medical History Open wound of right [...] artery ( 1989) Atherosclerotic heart disease of [place] coronary artery without angina pectoris Essential hypertension Influenza A Health care maintenance Falls fr (more content not included)... Normal [facility] Orthopedic Visit Reporton Orthopedic Visit Report [facility] [address] [place] [address] [address] [place] [address] OFFICE VISIT Date of Service: 07/05/24 MR#: [id number] Acct: [id number] Name: LAUREN ALCARAZ Rep #: [id number] : 1940 Provider: Dr. Christopher chan DO Age/Sex: 83/F Location: [facility] Status: Signed Intake Vital Signs 06/07/24 08:51 [...] denosumab 60 mg/mL subcutaneous 60 mg subcut G2LDWUNR #1 mL 02/18/24 07/05/24 Rx syringe (Prolia) [...] you fallen in the past year?: Yes [facility] Medical History Open wound of right [...] artery ( 1989) Atherosclerotic heart disease of [place] coronary artery without angina pectoris Essential hypertension Influenza A Health care maintenance Falls frequently Cancer Depression Dementia Walker as ambulation aid Arthritis Bladder disease Low iron DVT (deep venous thrombosis) High cholesterol Restless legs Back pain TIA (transient ischemic attack) Seizures Difficulty swallowing Gastric reflux Non-smoker Asthma Shortness of breath on exertion (more content not included)... Normal [facility] CNOVon 07-01-2024 CNOV Normal [facility] CT ABD/PEL W IVCONon 024 CT ABD/PEL W IVCON Normal [facility] CT Abdomen and Pelvis W cont rast Chava 06-24-2024 IMPRESSION: Large hiatal hernia. Dilated pancreatic duct and marked dilation of the common bile duct to the level of the ampulla. Possible filling defect within the distal CBD. Consider MRCP to exclude ampullary mass/choledocholithiasis. Insurance Assistant: ARTHUR Transcribe Date/Time: Jun 24 2024 4:00P Dictated by : STEPHANIE VIZCAINO MD This examination was interpreted and the report reviewed and electronically signed by: STEPHANIE VIZCAINO MD on Jun 24 2024 4:14PM [facility] DIVISION OF RADIOLOGY * * *Final Report* * * DATE OF EXAM: Jun 24 2024 3:12PM [facility] 0530 - CT ABD/PEL W IVCON / [...] No additional findings. DIVISION OF RADIOLOGY Provider, [facility] - 06/24/2024 * * *Final Report* * * DATE OF EXAM: Jun 24 2024 3:12PM [facility] 0530 - CT ABD/PEL W IVCON / [...] CBD. Consider MRCP to exclude ampullary mass/choledocholithiasis. Insurance Assistant: ARTHUR Transcribe Date/Time: Jun 24 2024 4:00P Dictated by : STEPHANIE VIZCAINO MD This examination was interpreted and the report reviewed and electronically signed by: STEPHANIE VIZCAINO MD on Jun 24 2024 4:14PM EST [facility] Radiology Study observation (narrative) [facility] CT Abdomen and Pelvis W cont rast IVOrdered By: Ccf Provider on 06-24-2024 [facility] CT CHEST W IVCONon CT CHEST W IVCON Normal [facility] Inital Evaluation (1) - PTon 06-24-2024 Inital Evaluation (1) - PT [facility] Physical Therapy [facility] [address] [place] [address]. [address] [place] [address] / REHABILITATION SERVICES INITIAL EVALUATION MR#: [id number] Acct: [id number] Name: LAUREN ALCARAZ Rep #: [id number] : 1940 83 From: Gunnar Graves PT, ATC Referring Dr.: Dr. Christopher Turk, DO Status: R EG RCR Insurance: MEDICARE PART A B [employer] [place] [id number] Patient's Visit Information Visit Information Visit Information: [...] Pt reports she has been exercising with [employer] and [employer] for half hour sessions. Pt reports she has numbness in both of her feet which she attributes to neuropathy. Pt reports she has no stairs at home, but has used the stairs here at [facility]. Pt reports she can negotiate stairs [...] to be FAXED BACK to us at [phone] for Medicare purposes. For Medicare only, by signing this I certify the plan of care. Please let me know if there are questions or concerns regarding this plan of care. Physician Signature: Date: 06/24/24 1124 CC: Dr. Christopher Turk DO; Dr. Chema Perry MD [facility] Signed Normal [facility] CREATININE BLDon 06-23-2024 Creatinine [Mass/Vol] 0.84 mg/dL Normal 0.58-0.96 [facility] Comment on above: Order Comment: Speci men Type: BLOOD SPECIMENOrdering Facility: [facility] Address: [address] [place] [address] Performed By: #### C RET1 ####[facility] [id number] [place] [address] [place] Creatinine and Glomerular filtration rate.predicted panel (S/P/Bld) 70 mL/min/1.73m??? Normal >=60 [facility] Comment on above: Order Comment: Speci men Type: BLOOD SPECIMENOrdering Facility: [facility] Address: [address] [place], [place] [address] Result Comment: Brandy mated Glomerular Filtration Rate [...] actual GFR. Performed By: #### C RET1 ####[facility] [id number] [place] [address] [place] CNCNPATEDon 06-18-2024 CNCNPATED Normal [facility] CNOVon 06-18-2024 CNOV Normal [facility] HISTORY PHYSICALon [facility]YSICAL [facility] CNPNon 06-17-2024 CNPN Normal [facility] Knee 4 or More Viewson 06-16 Knee 4 or More Views [facility] [address] [place] [address] Knee 4 or More Views MR#: [id number] Acct: [id number] Name: LAUREN ALCARAZ Rep #: [id number] : 1940 F 83 From: Bright Sarmiento MD PCP: Dr. Chema Perry MD Status: DEP AMB Study: Knee 4 or More Views Date of Exam: 06/16/24 Exam# [id number] Ordering Dr: Christopher Turk DO [id number] STUDY: X-RAY - RIGHT KNEE REASON FOR [...] 15:34 EDT Reading Location ID and State: [address] [place] [address] , Service support , CC: Dr. Christopher Turk DO; Dr. Chema Perry MD Insurance Assistant: Signed Normal [facility] Orthopedic Visit Reporton Orthopedic Visit Report [facility] [address] [place] [address] [address] [place] [address] OFFICE VISIT Date of Service: 06/16/24 MR#: [id number] Acct: [id number] Name: LAUREN ALCARAZ Rep #: [id number] : 1940 Provider: Dr. Christopher chan DO Age/Sex: 83/F Location: [facility] Status: Signed with Addenda ADDENDUM by Dr. [...] denosumab 60 mg/mL subcutaneous 60 mg subcut [id number] #1 mL 02/18/24 06/16/24 Rx syringe (Prolia) [...] you fallen in the past year?: Yes [facility] Medical History Open wound of right lower extremity Contusion of right foot Kyphoscoliosis deformity of spine Bee sting Lumbar contusion Contusion of thoracic wall Pain of left lower extremity Contact with and (suspected) exposure to other viral communicable diseases Contusion of left wrist Left (more content not included)... Normal [facility] Brain/Head without Contrasto n 06-07-2024 Brain/Head without Contrast [facility] Imaging Services [address] [place] [address] Brain/Head without Contrast MR#: [id number] Acct: [id number] Name: LAUREN ALCARAZ Rep #: [id number] : 1940 F 83 From: Chad Harper MD PCP: Dr. Chema Perry MD Status: REG ER Study: Brain/Head without Contrast Date of Exam: 05/19 09/10 Exam# [id number] Ordering Dr: Susan Emery DO [id number] STUDY: CT BRAIN WITHOUT CONTRAST REASON FOR [...] Susan Emery DO; Dr. Chema Perry MD Insurance Assistant: Signed Normal [facility] Emergency Department Summary on 06-07-2024 Emergency Department Summary [facility] Medical Records Department [address] [place] [address] Emergency Department Summary 06/07/24 MR#: [id number] Acct: [id number] Name: LAUREN ALCARAZ Rep #: [id number] : 1940 83 From: Susan Emery DO [...] is on apixaban. She denies neck pain. [facility] Medical History Open wound of right [...] artery ( 1989) Atherosclerotic heart disease of [place] coronary artery without angina pectoris Essential hypertension [...] denosumab 60 mg/mL subcutaneous 60 mg subcut [id number] #1 mL 02/18/24 Unknown Rx syringe (Prolia) [...] Rx vor (more content not included)... Normal [facility] Shoulder min 2 Viewson 06-07 Shoulder min 2 Views [facility] Imaging Services [address] [place] [address] Shoulder min 2 Views MR#: [id number] Acct: [id number] Name: LAUREN ALCARAZ Rep #: [id number] : 1940 F 83 From: Chad Harper MD PCP: Dr. Chema Perry MD Status: REG ER Study: Shoulder min 2 Views Date of Exam: 06/07/24 Exam# [id number] Ordering Dr: Susan Emery DO [id number] STUDY: X-RAY - LEFT SHOULDER REASON FOR [...] 9:45 EDT Reading Location ID and State: [facility] / [place] , Service support , CC: Dr. Susan Emery DO; Dr. Chema Perry MD Insurance Assistant: Signed Normal [facility] Office Visit Reporton 2023 Office Visit Report [facility] [address] [place] [address] OFFICE VISIT Date of Service: 06/05/24 MR#: [id number] Acct: [id number] Patient: LAUREN ALCARAZ Rep #: [id number] : 1940 Provider: ERIK Mckenna Age/Sex: 83/F Location: [facility] Status: Signed Intake Vital Signs 05/04/24 16:04 [...] Reasons: RASH ON BUTTOCKS Chief Complaint: rash Local Sales Associate Required: No Is patient in pain?: No [...] denosumab 60 mg/mL subcutaneous 60 mg subcut [id number] #1 mL 02/18/24 04/22/24 Rx syringe (Prolia) [...] extremity Co (more content not included)... Normal [facility] CNOVon 05-17-2024 CNOV Normal [facility] Urgent Care Visit Reporton 0 05-04-2024 Urgent Care Visit Report [facility] [address], [address] [place] [address] OFFICE VISIT Date of Service: 05/04/24 MR#: [id number] Acct: [id number] Name: LAUREN ALCARAZ Rep #: [id number] : 1940 Provider: ERIK Dodson Age/Sex: 83/F Location: [facility] Status: Signed Intake Vital Signs 04/22/24 13:06 [...] Complaint: SEEPING WOUND ON RT LOWER EXTREMITY Local Sales Associate Required: No Accompanied by: Is patient in [...] denosumab 60 mg/mL subcutaneous 60 mg subcut [id number] #1 mL 02/18/24 04/22/24 Rx syringe (Prolia) [...] you fallen in the past year?: No [facility] Medical History (Updated 05/04/24 @ 16:27 by Jd Gallego PA, PA) Open wound of right lower extremity Contusion of right foot Kyphoscoliosis deformity of spine Bee sting Lumbar contusion Contusion of thoracic wall Pain of left lower extremity Contact with and (suspected) exposure to ot (more content not included)... Normal [facility] OCT OPTIC NERVE CIRRUS OU (B OTH EYES)on 05-03-2024 [facility] Radiology Study observation (narrative) [facility] PT D/C Summary (1)on 024 PT D/C Summary (1) [facility] Physical [facility] [address] [place] [address] [address] [place] [address] / REHABILITATION SERVICES DISCHARGE SUMMARY MR#: [id number] Acct: [id number] Name: LAUREN LACARAZ Rep #: [id number] : 1940 83 From: Vincent Amado DPT, OCS, CSCS Referring Dr.: Dr. Chema Perry MD Status: R EG RCR Insurance: MEDICARE PART A B [place] [id number] Discharge Summary D/C summary: It has been [...] Goal 3:: Pt have confidence in her HEP/aed trainer ex regimen to continue to make [...] please feel free to call me at [phone]. Thank you for the referral of this patient. Sincerely, Vincent Amado, DPT, OCS, CSCS Balance/Gait/Functional tests Balance/Special Test Scores Functional Gait Assessment Score: 22 % Disability: 26.6700 CATSIB Score (Max score 120 seconds): 85 Dizziness Score: 26 30 Second Chair Rise Test Seconds: 9 Improvement % Improvement: 50 04/30/24 0819 CC: Dr. Chema Perry MD EBG Signed Normal [facility] MR/Yanni 04-22-2024 MR/BMS.MOHAMUD [facility] [address] [place] [address] OFFICE VISIT Date of Service: 04/22/24 MR#: [id number] Acct: [id number] Name: LAUREN ALCARAZ Rep #: [id number] : 1940 Provider: Dr. Chema williamson MD Age/Sex: 83/F Location: [facility] Status: Signed Intake Vital Signs 04/17/24 06:55 [...] Delivery Method room air Intake Visit Reasons: [facility] ER FU Chief Complaint: N/V Local Sales Associate Required: No Is patient in pain?: Yes [...] denosumab 60 mg/mL subcutaneous 60 mg subcut [id number] #1 mL 02/18/24 04/22/24 Rx syringe (Prolia) [...] you fallen in the past year?: No [facility] Medical History Contusion of right foot Kyphoscoliosis deformity of spine Bee sting Lumbar contusion Contusion of thoracic wall Pain of left lower extremity Contact with and (suspected) exposure to other viral communicable diseases Contusion of left wrist Left elbow contusion Contusion of left shoulder Scalp contusion Injury of left elbow Injury of left s (more content not included)... Normal [facility] Office Visit Reporton 2023 Office Visit Report [facility] Services [address] [place] [address] OFFICE VISIT Date of Service: 04/19/24 MR#: [id number] Acct: [id number] Patient: LAUREN ALCARAZ Rep #: [id number] : 1940 Provider: ERIK Mckenna Age/Sex: 83/F Location: [facility] Status: Signed Intake Vital Signs 04/17/24 06:55 04/19/24 11:11 Height 4 ft 8 in Weight: 103 lb BP 140/68 H Blood Pressure Location Rt brachial Position Sitting Respiration 16 Pulse 72 Pulse Source NIBP Temp 98.1 F Temp Source Temporal Pulse Oximetry (%) 93 Oxygen Delivery Method room air Intake Visit Reasons: NAUSEA/VOMITING Chief Complaint: N/V Local Sales Associate Required: No Is patient in pain?: No [...] help. wants RX for different shingles med. [facility] Medical History Contusion of right foot [...] artery ( 1989) Atherosclerotic heart disease of [place] coronary artery without angina pectoris Essential hypertension [...] above) Ex (more content not included)... Normal [facility] Emergency Department Summary on 04-17-2024 Emergency Department Summary [facility] Medical Records Department [address] [place] [address] Emergency Department Summary 04/17/24 MR#: [id number] Acct: [id number] Name: LAUREN ALCARAZ Rep #: [id number] : 1940 83 From: Vincent Morris DO [...] vomiting. Patient denies any paresthesias or weakness. [facility] Medical History Contusion of right foot [...] artery ( 1989) Atherosclerotic heart disease of [place] coronary artery without angina pectoris Essential hypertension [...] denosumab 60 mg/mL subcutaneous 60 mg subcut [id number] #1 mL 02/18/24 Unknown Rx syringe (Prolia) [...] mcg/mL i (more content not included)... Normal [facility] Pulmonary Visit Reporton Pulmonary Visit Report [facility] [address] [place] [address] OFFICE VISIT Date of Service: 04/05/24 MR#: [id number] Acct: [id number] Name: LAUREN ALCARAZ Rep #: [id number] : 1940 Provider: BURAK Vincent Age/Sex: 83/F Location: [facility] Status: Signed Assessment and Plan Assessment and [...] uncomplicated Plan Details Follow Up: 6 Months ([facility]) HPI 6 M FU Chief Complaint: Test [...] 6 M FU Chief Complaint: b12 injection Local Sales Associate Required: No DME Vendor: [employer] Accompanied [...] 04/05/24 Hi (more content not included)... Normal [facility] Re-Evaluation - PT (1)on Re-Evaluation - PT (1) [facility] Physical Therapy [facility] [address] [place] [address] / REEVALUATION / MEDICARE RECERTIFICATION PHYSICAL THERAPY MR#: [id number] Acct: [id number] Name: LAUREN ALCARAZ Rep #: [id number] : 1940 83 From: Vincent Amado DPT, OCS, CSCS Referring Dr.: Dr. Chema Perry MD Status:REG RCR Insurance: MEDICARE PART A B [place] [id number] Re-Evaluation Intro: Dr. Chema Perry MD, It [...] she goes without walker in the house. [facility] won't address it. Dr. Perry does not [...] to I HEP / exercises with the aed trainer. Plan Plan Plan: weekly x 4 then every other week x 4 weeks til end may to ensure smooth trasntion to HEp and aed trainer. Please focus on weight shifting adn LE strength progression in therapy. Therapist to chat with aed trainer with pt approval and work to a full aed trainer program. New goal set with fair [...] Goal 3:: Pt have confidence in her HEP/aed trainer ex regimen to continue to make [...] do not hesitate to contact me at [phone] by phone or if you have questions or concerns regarding this new plan of care! Sincerely, Vincent Amado, RYANT, OCS, CSCS 04/02/24 3047 CC: Dr. Chema Perry MD EBG Signed For Medicare only, by signing this I certify the plan of care. _ Physicians Signature Date Normal [facility] Office Visit Reporton 2023 Office Visit Report [facility] [address] [place] [address] OFFICE VISIT Date of Service: 04/01/24 MR#: [id number] Acct: [id number] Patient: LAUREN ALCARAZ Rep #: [id number] : 1940 Provider: IMB NURSE Age/Sex: 83/F Location: [facility] Status: Signed Intake Vital Signs 02/11/24 15:30 [...] denosumab 60 mg/mL subcutaneous 60 mg subcut [id number] #1 mL 02/18/24 04/01/24 Rx syringe (Prolia) [...] Performing Provider: Chema Perry MD Performing Location: [facility] Administered by: Dottie Cannon on 04/01/24 10:13 Dose Route Admin Location Dispensed Lot Number Expiration Date [facility] ufacturer 1,000 mcg IM Right deltoid 1 mL [id number] 06/18/25 27303-046-00 [employer] Comments: Patient provided medication. Patient [...] Date ___ (more content not included)... Normal [facility] CNOVon 03-25-2024 CNOV Normal [facility] Basic Metabolic Profile (BMP )on 03-18-2024 BUN/CRE 24.5 RATIO High 10-20 [facility] Comment on above: Performed By: #### L 500.2500 ####[facility] [address] [place], [address] CA,Total 9.3 mg/dL Normal 8.5-10.1 [facility] Comment on above: Performed By: #### L 500.2500 ####[facility] [address] [place], [address] Chloride [Moles/Vol] 105 mmol/L Normal 98-107 [facility] Comment on above: Performed By: #### L 500.2500 ####[facility] [address] [place], [address] CO2 [Moles/Vol] 28.0 mmol/L Normal 21.0-32.0 [facility] Comment on above: Performed By: #### L 500.2500 ####[facility] [address] [place], [address] Creatinine [Mass/Vol] 1.06 mg/dL High 0.55-1.02 [facility] Comment on above: Result Comment: The validity of the calculated GFR GFRAA in patients over 70 years has not been determined. Clinical correlation is essential. Performed By: #### L 500.2500 ####[facility] [address] [place], [address] EST GFR - AA 64 mL/min Normal >60 [facility] Comment on above: Result Comment: Afri can French GFR Calc Performed By: #### L 500.2500 ####[facility] [address] [place], [address] GAP 5 Normal 5-15 [facility] Comment on above: Performed By: #### L 500.2500 ####[facility] [address] [place], [address] GFR/1.73 sq M.predicted among non-blacks MDRD (S/P/Bld) [Vol rate/Area] 53 mL/min/{1.73_m2} Low >60 [facility] Comment on above: Result Comment: Non- GFR Calc Performed By: #### L 500.2500 ####[facility] [address] [place], [address] Glucose [Mass/Vol] 133 mg/dL High 74-106 [facility] Comment on above: Result Comment: Fast ing Glucose result greater than or equal to 126 mg/dL suggests DIABETES MELLITUS per A.D.A. criteria. Performed By: #### L 500.2500 ####[facility] [address] [place], [address] Potassium [Moles/Vol] 4.2 mmol/L Normal 3.5-5.1 [facility] Comment on above: Performed By: #### L 500.2500 ####[facility] [address] [place], [address] Sodium [Moles/Vol] 138 mmol/L Normal 136-145 [facility] Comment on above: Performed By: #### L 500.2500 ####[facility] [address] [place], [address] Urea nitrogen [Mass/Vol] 26 mg/dL High 7-18 [facility] Comment on above: Performed By: #### L 500.2500 ####[facility] [address] [place], [address] Foot min 3 Viewson 07-30-202 4 Foot min 3 Views [facility] [address] [place] [address] Foot min 3 Views MR#: [id number] Acct: [id number] Name: LAUREN ALCARAZ Rep #: [id number] : 1940 F 83 From: Sam stafford MD PCP: Dr. Chema Perry MD Status: REG CLI Study: Foot min 3 Views Date of Exam: 03/16/24 Exam# [id number] Ordering Dr: Jd Gallego PA [id number] STUDY: X-RAY - RIGHT FOOT CLINICAL: Female, [...] CC: Dr. Chema Perry MD; ERIK Dodson Insurance Assistant: Signed Normal [facility] Urgent Care Visit Reporton 0 03-16-2024 Urgent Care Visit Report [facility] [address] [place] [address] OFFICE VISIT Date of Service: 03/16/24 MR#: [id number] Acct: [id number] Name: LAUREN ALCARAZ Rep #: [id number] : 1940 Provider: ERIK Dodson Age/Sex: 83/F Location: [facility] Status: Signed Intake Vital Signs 02/11/24 15:30 [...] POSSIBLE BROKEN BONE Chief Complaint: b12 injection Local Sales Associate Required: No Is patient in pain?: Yes [...] denosumab 60 mg/mL subcutaneous 60 mg subcut [id number] #1 mL 02/18/24 03/16/24 Rx syringe (Prolia) [...] bad towards the endc of the day. [facility] Medical History (Updated 03/16/24 @ 12:05 by Jd VALENCIA, PA) Contusion of right foot Kyphoscoliosis deformity of spine Bee sting Lumbar contusion (more content not included)... Normal [facility] Re-Evaluation - PT (1)on Re-Evaluation - PT (1) [facility] Physical Therapy [facility] [address] [place] [address] / REEVALUATION / MEDICARE RECERTIFICATION PHYSICAL THERAPY MR#: [id number] Acct: [id number] Name: LAUREN ALCARAZ Rep #: [id number] : 1940 83 From: Vincent Amado DPT, OCS, CSCS Referring Dr.: Dr. Chema Perry MD Status:REG RCR Insurance: MEDICARE PART A B [place] [id number] Re-Evaluation Intro: Dr. Chema Perry MD, It has been my pleasure to treat LAUREN ALCARAZ over the last 15 visits for dizzyness. Please see the progress note below for an update on the physical therapy plan of care! Subjective Subjective: Workouts in PT are going well. Doesn't know if it is helping with steadiness but vertigo feels better. Will go to [facility] tomorrow to see weight reduction specialist. Will look at LB scoilosis. Wondering if they can help with scoliosis being bent over. Wants breathing and steadiness to be things that can be improved with this doctor. says that she still needs lots of help with steadiness and not seeing huge improvements on that. Wants to continue via in clinic 2x/weeka nd aed trainer 3x/week. Objective Objective/Function: Pt has poor [...] do not hesitate to contact me at [phone] by phone or if you have questions or concerns regarding this new plan of care! Sincerely, Vincent Amado, RYANT, OCS, CSCS 03/04/24 1348 CC: Dr. Chema Perry MD EBG Signed For Medicare only, by signing this I certify the plan of care. _ Physicians Signature Date Normal [facility] Office Visit Reporton 2023 Office Visit Report [facility] [address] [place] [address] OFFICE VISIT Date of Service: 02/23/24 MR#: [id number] Acct: [id number] Patient: LAUREN ALCARAZ Rep #: [id number] : 1940 Provider: MOHAMUD NURSE Age/Sex: 83/F Location: [facility] Status: Signed Intake Vital Signs 02/11/24 15:30 [...] Performing Provider: Chema Perry MD Performing Location: [facility] Administered by: Josselin Kat MA on 02/23/24 11:02 Dose Route Admin Location Dispensed Lot Number Expiration Date N[employer] Man ufacturer 1,000 mcg IM right delt 1 mL [id number] 06/18/25 43447-975-59 [employer] Comments: PT TOLERATED WELL. Assessment and Plan Assessment and Plan (1) Vitamin B 12 deficiency: Status: Acute Orders: Orders Vitamin B12 Today E53.8 - Deficiency of other specified B group vitamins Clinical Quality Measures Falls Risk Screening/Assistive Devices Have you fallen in the past year?: No 02/23/24 1548 Date Chema Luna Signature: Date (if applicable) CC: Normal [facility] Miscellaneous Lab Procedureo n 02-16-2024 MISC LAB TEST Normal [facility] Comment on above: Order Comment: Comme nts: SE antibodies [facility]:[id number] SER/RTGAD [id number] SER/RT Result Comment: TEST RESULTS LIMITS SE-65 Autoantibody SE-65 <5.0 U/mL 0.0-5.0 TESTING PERFORMED AT [facility]. ORIGINAL REPORT ON FILE IN LAB CONTAINS ADDITIONAL TEST SITE INFORMATION. Performed By: #### L 506.0400, L801.1541, L503.0105, L501.9520, L501.78793, L500.4050 ####[facility] [address] [place], [address] Comprehensive Metabolic Prof ilon 02-12-2024 Albumin [Mass/Vol] 3.7 g/dL Normal 3.2-5.0 [facility] Comment on above: Order Comment: SE a ntibodies [facility]:[id number] Performed By: #### L 506.0400, L801.1541, L503.0105, L501.9520, L501.69397, L500.4050 ####[facility] [address] [place], [address] Albumin/Globulin [Mass ratio] 1.1 {ratio} Normal 0.9-2.4 [facility] Comment on above: Order Comment: SE a ntibodies [facility]:[id number] Performed By: #### L 506.0400, L801.1541, L503.0105, L501.9520, L501.46304, L500.4050 ####[facility] [address] [place], [address] ALK P 76 U/L Normal 45-117 [facility] Comment on above: Order Comment: SE a ntibodies [facility]:[id number] Performed By: #### L 506.0400, L801.1541, L503.0105, L501.9520, L501.10940, L500.4050 ####[facility] [address] [place], [address] ALT [Catalytic activity/Vol] 31 U/L Normal 13-56 [facility] Comment on above: Order Comment: SE a ntibodies [facility]:[id number] Performed By: #### L 506.0400, L801.1541, L503.0105, L501.9520, L501.58747, L500.4050 ####[facility] [address] [place], [address] AST [Catalytic activity/Vol] 24 U/L Normal 15-37 [facility] Comment on above: Order Comment: SE a ntibodies [facility]:[id number] Performed By: #### L 506.0400, L801.1541, L503.0105, L501.9520, L501.47513, L500.4050 ####[facility] [address] [place], [address] Bilirubin [Mass/Vol] 0.80 mg/dL Normal 0.20-1.00 [facility] Comment on above: Order Comment: SE a ntibodies [facility]:[id number] Result Comment: For patients on eltrombopag therapy, use of Dimension [place] TBIL is not recommended. Performed By: #### L 506.0400, L801.1541, L503.0105, L501.9520, L501.99702, L500.4050 ####[facility] [address] [place], [address] BUN/CRE 21.2 RATIO High 10-20 [facility] Comment on above: Order Comment: SE a ntibodies [facility]:[id number] Performed By: #### L 506.0400, L801.1541, L503.0105, L501.9520, L501.32371, L500.4050 ####[facility] [address] [place], [address] CA,Total 9.6 mg/dL Normal 8.5-10.1 [facility] Comment on above: Order Comment: SE a ntibodies [facility]:[id number] Performed By: #### L 506.0400, L801.1541, L503.0105, L501.9520, L501.16618, L500.4050 ####[facility] [address] [place], [address] Chloride [Moles/Vol] 103 mmol/L Normal 98-107 [facility] Comment on above: Order Comment: SE a ntibodies [facility]:[id number] Performed By: #### L 506.0400, L801.1541, L503.0105, L501.9520, L501.07414, L500.4050 ####[facility] [address] [place], [address] CO2 [Moles/Vol] 30.0 mmol/L Normal 21.0-32.0 [facility] Comment on above: Order Comment: SE snowTheCityGame [facility]:[id number] Performed By: #### L 506.0400, L801.1541, L503.0105, L501.9520, L501.14131, L500.4050 ####[facility] [address] [place], [address] Creatinine [Mass/Vol] 1.13 mg/dL High 0.55-1.02 [facility] Comment on above: Order Comment: SE kumar ntibTheCityGame [facility]:[id number] Result Comment: The validity of the calculated GFR GFRAA in patients over 70 years has not been determined. Clinical correlation is essential. Performed By: #### L 506.0400, L801.1541, L503.0105, L501.9520, L501.49357, L500.4050 ####[facility] [address] [place], [address] EST GFR - AA 59 mL/min Low >60 [facility] Comment on above: Order Comment: SE kumar ntibTheCityGame [facility]:[id number] Result Comment: Afri can French GFR Calc Performed By: #### L 506.0400, L801.1541, L503.0105, L501.9520, L501.03587, L500.4050 ####[facility] [address] [place], [address] GAP 7 Normal 5-15 [facility] Comment on above: Order Comment: SE kumar ntibTheCityGame [facility]:[id number] Performed By: #### L 506.0400, L801.1541, L503.0105, L501.9520, L501.74789, L500.4050 ####[facility] [address] [place], [address] GFR/1.73 sq M.predicted among non-blacks MDRD (S/P/Bld) [Vol rate/Area] 49 mL/min/{1.73_m2} Low >60 [facility] Comment on above: Order Comment: SE snowTheCityGame [facility]:[id number] Result Comment: Non- GFR Calc Performed By: #### L 506.0400, L801.1541, L503.0105, L501.9520, L501.61784, L500.4050 ####[facility] [address] [place], [address] Globulin (S) [Mass/Vol] 3.5 g/dL Normal 2.2-4.2 [facility] Comment on above: Order Comment: SE snowTheCityGame [facility]:[id number] Performed By: #### L 506.0400, L801.1541, L503.0105, L501.9520, L501.19622, L500.4050 ####[facility] [address] [place], [address] Glucose [Mass/Vol] 106 mg/dL Normal 74-106 [facility] Comment on above: Order Comment: SE [employer] [facility]:[id number] Result Comment: Fast ing Glucose result from 100 to 125 mg/dL suggests IMPAIRED HOMEOSTASIS per A.D.A. criteria. Performed By: #### L 506.0400, L801.1541, L503.0105, L501.9520, L501.75945, L500.4050 ####[facility] [address] [place], [address] Potassium [Moles/Vol] 3.6 mmol/L Normal 3.5-5.1 [facility] Comment on above: Order Comment: SE [employer] [facility]:[id number] Performed By: #### L 506.0400, L801.1541, L503.0105, L501.9520, L501.10884, L500.4050 ####[facility] [address] [place], [address] Sodium [Moles/Vol] 140 mmol/L Normal 136-145 [facility] Comment on above: Order Comment: SE a ntibodies [facility]:[id number] Performed By: #### L 506.0400, L801.1541, L503.0105, L501.9520, L501.44972, L500.4050 ####[facility] [address] [place], [address] T PROT 7.2 g/dL Normal 6.4-8.2 [facility] Comment on above: Order Comment: SE a ntibodies [facility]:[id number] Performed By: #### L 506.0400, L801.1541, L503.0105, L501.9520, L501.67353, L500.4050 ####[facility] [address] [place], [address] Urea nitrogen [Mass/Vol] 24 mg/dL High 7-18 [facility] Comment on above: Order Comment: SE a ntibodies [facility]:[id number] Performed By: #### L 506.0400, L801.1541, L503.0105, L501.9520, L501.73830, L500.4050 ####[facility] [address] [place], [address] Free T3on 02-12-2024 Free T3 [Mass/Vol] 1.8 pg/mL Low 2.18-3.98 [facility] Comment on above: Order Comment: SE a ntibodies [facility]:[id number] Performed By: #### L 506.0400, L801.1541, L503.0105, L501.9520, L501.40820, L500.4050 ####[facility] [address] [place], [address] T4 Free Directon 02-12-2024 T4 FREE DIRECT 1.12 ng/dL Normal 0.76-1.46 [facility] Comment on above: Order Comment: SE a ntibodies [facility]:[id number] Performed By: #### L 506.0400, L801.1541, L503.0105, L501.9520, L501.44892, L500.4050 ####[facility] [address] [place], [place], [address] Thyroid Stim Hormone (TSH)on 02-12-2024 TSH 1.45 uIU/mL Normal 0.358-3.74 [facility] Comment on above: Order Comment: SE a ntibodies [facility]:[id number] Performed By: #### L 506.0400, L801.1541, L503.0105, L501.9520, L501.56833, L500.4050 ####[facility] [address] [place], [place], [address] Vitamin B12on 02-12-2024 Cobalamin (Vitamin B12) [Mass/Vol] 1092 pg/mL High 211-911 [facility] Comment on above: Performed By: #### L 506.0400, L801.1541, L503.0105, L501.9520, L501.86702, L500.4050 ####[facility] [address] [place], [place], [address] /Yanni 02-11-2024 MR/BMS.Ja[facility] [address] [address] [place], [place] [address] OFFICE VISIT Date of Service: 02/11/24 MR#: [id number] Acct: [id number] Name: LAUREN ALCARAZ Rep #: [id number] : 1940 Provider: Dr. Chema williamson MD Age/Sex: 83/F Location: [facility] Status: Signed Intake Vital Signs 08/13/23 15:36 [...] 6 M FU Chief Complaint: 6m f/u Local Sales Associate Required: No Accompanied by: Self Is patient [...] denosumab 60 mg/mL subcutaneous 60 mg subcut [id number] #1 mL 02/05/23 02/11/24 Rx syringe (Prolia) [...] you fallen in the past year?: Yes [facility] Medical History (Updated 02/12/24 @ 08:53 [...] artery ( 1989) Atherosclerotic heart disease of [place] coronary artery without angina pectoris Essential hypertension [...] Hypertension Cardio (more content not included)... Normal [facility] No Panel InformationOrdered By: Chema Perry on 10-14-2023 Free Triiodothyronine (T3) pg/dL 1.8 pg/mL 2.18-3.98 [facility] Serum or plasma thyroid stim ulating hormone (TSH) measurement (units/volume)Ordered By: Chema Perry on 10-14-2023 TSH Qn 1.27 uIU/mL 0.358-3.74 [facility] Thin prep Papanicolaou smear with manual screeningOrdered By: Chema Perry on 10-14-2023 Thin prep Papanicolaou smear with manual screening 1.20 ng/dL 0.76-1.46 [facility] Laboratory - Chemistry and C hemistry - challengeOrdered By: Chema Perry on 04-22-2023 Free T4 [Mass/Vol] 1.33 ng/dL 0.76-1.46 [facility] No Panel InformationOrdered By: Chema Perry on 04-22-2023 Free Triiodothyronine (T3) pg/dL 1.9 pg/mL 2.18-3.98 [facility] Thyroid Stimulating Hormone (TSH) 3.33 uIU/mL 0.358-3.74 [facility] Laboratory - Chemistry and C hemistry - challengeOrdered By: Dr. Perry on 01-15-2023 Free T4 [Mass/Vol] 1.10 ng/dL 0.76-1.46 [facility] No Panel InformationOrdered By: Dr. Perry on 01-15-2023 Free Triiodothyronine (T3) pg/dL 1.7 pg/mL 2.18-3.98 [facility] Thyroid Stimulating Hormone (TSH) 1.63 uIU/mL 0.358-3.74 [facility] MR Brain WO contraston 12-04 * * *Final Report* * * DATE OF EXAM: Dec 04 2022 2:13PM [facility] 3015 - MRI BRAIN W QUANT WO [...] dementia protocol and 3-D post-processing using the [employer] software at an independent workstation with concurrent physician supervision and images were created, reviewed and archived. MQ: [id number] COMPARISON: None RESULT: QUALITATIVE: Acute Intracranial Process: None. Chronic Intracranial Process: Moderate chronic microvascular ischemic change.. Age related white matter changes ([facility]) rating: White matter lesions: 2 Basal [...] Luis Manuel 2010). DIVISION OF RADIOLOGY Provider, [facility] - 12/04/2022 * * *Final Report* * * DATE OF EXAM: Dec 04 2022 2:13PM [facility] 3015 - MRI BRAIN W QUANT WO [...] dementia protocol and 3-D post-processing using the [employer] software at an independent workstation with concurrent [...] = Focal Lesions 2 = Beginning of [place] 3 = Diffuse Involvement of Entire Region [...] results from the analysis charts for details. Insurance Assistant: ARTHUR Transcribe Date/Time: Dec 04 2022 2:45P Dictated by : SUSAN LOMELI MD This examination was interpreted and the report reviewed and electronically signed by: SUSAN LOMELI MD on Dec 04 2022 3:20PM [facility] MR Unspecified body region 3 D post processingon 12-04-2022 * * *Final Report* * * DATE OF EXAM: Dec 04 2022 2:13PM [facility] 0280 - MRI 3D POST PROCESSING / [...] dementia protocol and 3-D post-processing using the [employer] software at an independent workstation with concurrent [...] Luis Manuel 2010). DIVISION OF RADIOLOGY Provider, [facility] - 12/04/2022 * * *Final Report* * * DATE OF EXAM: Dec 04 2022 2:13PM [facility] 0280 - MRI 3D POST PROCESSING / [...] dementia protocol and 3-D post-processing using the [employer] software at an independent workstation with concurrent [...] = Focal Lesions 2 = Beginning of [place] 3 = Diffuse Involvement of Entire Region [...] results from the analysis charts for details. Insurance Assistant: ARTHUR Transcribe Date/Time: Dec 04 2022 2:45P Dictated by : SUSAN LOMELI MD This examination was interpreted and the report reviewed and electronically signed by: SUSAN LOMEIL MD on Dec 04 2022 3:20PM EST [facility] No Panel Informationon 12-04 IMPRESSION: * No [...] = Focal Lesions 2 = Beginning of [place] 3 = Diffuse Involvement of Entire Region [...] results from the analysis charts for details. Insurance Assistant: ARTHUR Transcribe Date/Time: Dec 04 2022 2:45P Dictated by : SUSAN LOMELI MD This examination was interpreted and the report reviewed and electronically signed by: SUSAN LOMELI MD on Dec 04 2022 3:20PM EST DIVISION OF RADIOLOGY Radiology Study observation (narrative) [facility] No Panel InformationOrdered By: [facility] Provider on 12-04-2022 [facility] Absolute lymphocyte countOrd ered By: Dr. Perry on 12-03-2022 Lymphocytes Auto (Unsp spec) [#/Vol] 1.62 10*3/uL 0.83-4.51 [facility] Basophil percentageOrdered B y: Dr. Perry on 12-03-2022 Basophils/100 WBC (Bld) 0.7 % 0-1 [facility] Bilirubin [Mass/Vol] 0.60 mg/dL 0.20-1.00 [facility] Comment on above: For patients on eltr ombopag therapy, use of Dimension [place] TBIL is not recommended. Chloride [Moles/Vol] 107 mmol/L 98-107 [facility] Cholesterol [Mass/Vol] 124 mg/dL <200 [facility] Comment on above: <200 mg/dL Desirable 200-240 mg/dL Borderline >240 mg/dL High Risk Eosinophils/100 WBC (Bld) 3.0 % 0-5 [facility] Glucose [Mass/Vol] 101 mg/dL 74-106 [facility] Comment on above: Fasting Glucose resu lt from 100 to 125 mg/dL suggests IMPAIRED HOMEOSTASIS per A.D.A. criteria. Neutrophils (Bld) [#/Vol] 3.5 10*3/uL 2.0-7.7 [facility] Neutrophils/100 WBC (Bld) 61.8 % 47-70 [facility] Potassium [Moles/Vol] 3.7 mmol/L 3.5-5.1 [facility] Protein [Mass/Vol] 7.1 g/dL 6.4-8.2 [facility] Sodium [Moles/Vol] 137 mmol/L 136-145 [facility] Triglyceride [Mass/Vol] 132 mg/dL <199 [facility] Comment on above: The drugs N-Acetylcy steine and Metamizole may falsely depress this assay.Serum Triglycerides Reference Interval Normal <150 mg/dL Borderline high 150 - 199 mg/dL High 200 - 499 mg/dL Very High > or = 500 mg/dL WBC (Bld) [#/Vol] 5.7 10*3/uL 4.4-11.0 [facility] Blood erythrocytes count (nu mber/volume)Ordered By: Dr. Perry on 12-03-2022 RBC (Bld) [#/Vol] 4.50 10*6/uL 4.2-5.4 [facility] Blood hemoglobin measurement (mass/volume)Ordered By: Dr. Perry on 12-03-2022 Hemoglobin (Bld) [Mass/Vol] 12.1 g/dL 12.0-15.0 [facility] Blood lymphocytes/100 leukoc ytesOrdered By: Dr. Perry on 12-03-2022 Lymphocytes/100 WBC (Bld) 28.5 % 19-41 [facility] Blood monocytes/100 leukocyt esOrdered By: Dr. Perry on 12-03-2022 Monocytes/100 WBC (Bld) 5.8 % 0-10 [facility] Blood platelet mean volumeOr dered By: Dr. Perry on 12-03-2022 Platelet mean volume (Bld) [Entitic vol] 10.2 fL 6.2-12.0 [facility] Determination of erythrocyte mean corpuscular volume (MCV)Ordered By: Dr. Perry on 12-03-2022 MCV (RBC) [Entitic vol] 86.0 fL 81-99 [facility] Hematocrit Auto (Bld) [Volum e fraction]Ordered By: Dr. Perry on 12-03-2022 Hematocrit (Bld) [Volume fraction] 38.7 % 37-47 [facility] Laboratory - Chemistry and C hemistry - challengeOrdered By: Dr. Perry on 12-03-2022 ALP [Catalytic activity/Vol] 70 U/L 45-117 [facility] ALT [Catalytic activity/Vol] 24 U/L 13-56 [facility] CO2 [Moles/Vol] 25.0 mmol/L 21.0-32.0 [facility] Cobalamin (Vitamin B12) [Mass/Vol] 1344 pg/mL 211-911 [facility] Free T4 [Mass/Vol] 1.23 ng/dL 0.76-1.46 [facility] Globulin (S) [Mass/Vol] 3.5 g/dL 2.2-4.2 [facility] Urea nitrogen/Creatinine [Mass ratio] 25.5 mg/mg 10-20 [facility] Laboratory - Hematology and Cell countsOrdered By: Dr. Perry on 12-03-2022 Erythrocyte distribution width (RBC) [Entitic vol] 51.3 fL 35.1-43.9 [facility] Erythrocyte distribution width (RBC) [Ratio] 16.1 % 11.6-14.6 [facility] Immature granulocytes/100 WBC (Bld) 0.200 % 0.0-0.9 [facility] Comment on above: IG% - Immature Granu locytes (promyelocytes, myelocytes and metamyelocytes) > 1% indicates that a LEFT SHIFT is Present. MCH (RBC) [Entitic mass] 26.9 pg 27.0-32.0 [facility] Nucleated RBC/100 WBC (Bld) [Ratio] 0 % 0-5 [facility] MCHC Auto (RBC) [Mass/Vol]Or dered By: Dr. Perry on 12-03-2022 MCHC (RBC) [Mass/Vol] 31.3 g/dL 32-36 [facility] No Panel InformationOrdered By: Dr. Perry on 12-03-2022 Estimated GFR (MDRD) Amer 86 mL/min >60 [facility] Comment on above: GFR Calc Estimated GFR (MDRD) Non-Af Amer 71 mL/min >60 [facility] Comment on above: Non- GFR Calc Free Triiodothyronine (T3) pg/dL 1.9 pg/mL 2.18-3.98 [facility] Thyroid Stimulating Hormone (TSH) 5.10 uIU/mL 0.358-3.74 [facility] Vitamin D 25-Hydroxy 54.4 ng/mL [facility] Comment on above: Vitamin D 25(OH) Sta tus Range Deficiency <20 ng/mL (50nmol/L) Insufficiency 20 - 30 ng/mL (50 - 75 nmol/L) Sufficiency 30 - 100 ng/mL (75 - 250 nmol/L) Toxicity >100 ng/mL (>250 nmol/L) Platelets bldOrdered By: Dr. Perry on 12-03-2022 Platelets (Bld) [#/Vol] 244 10*3/uL 150-450 [facility] Serum or plasma albumin osiris urement (mass/volume)Ordered By: Dr. Perry on 12-03-2022 Albumin [Mass/Vol] 3.6 g/dL 3.2-5.0 [facility] Serum or plasma albumin/glob ulin mass ratioOrdered By: Dr. Perry on 12-03-2022 Albumin/Globulin [Mass ratio] 1.0 {ratio} 0.9-2.4 [facility] Serum or plasma calcium osiris urement (mass/volume)Ordered By: Dr. Perry on 12-03-2022 Calcium [Mass/Vol] 8.7 mg/dL 8.5-10.1 [facility] Serum or plasma cholesterol in HDL measurement (mass/volume)Ordered By: Dr. Perry on 12-03-2022 Cholesterol in HDL [Mass/Vol] 42 mg/dL >40 [facility] Comment on above: The drugs N-Acetylcy steine and Metamizole may falsely depress this assay. Reference Range HDL <40 mg/dL Low HDL Cholesterol HDL >or= 60 mg/dL High HDL Cholesterol Serum or plasma cholesterol in VLDL measurement (mass/volume)Ordered By: Dr. Perry on 12-03-2022 Cholesterol in VLDL [Mass/Vol] 26 mg/dL 5-40 [facility] Serum or plasma creatinine m easurement (mass/volume)Ordered By: Dr. Perry on 12-03-2022 Creatinine [Mass/Vol] 0.82 mg/dL 0.55-1.02 [facility] Comment on above: The validity of the calculated GFR & GFRAA in patients over 70 years has not been determined. Clinical correlation is essential. Serum or plasma low density lipoprotein (LDL) cholesterol measurement (mass/volume)Ordered By: Dr. Perry on 12-03-2022 Cholesterol in LDL [Mass/Vol] 56 mg/dL 0-130 [facility] Serum or plasma urea nitroge n measurement (mass/volume)Ordered By: Dr. Perry on 12-03-2022 Urea nitrogen [Mass/Vol] 21 mg/dL 7-18 [facility] Thin prep Papanicolaou smear with manual screeningOrdered By: Dr. Perry on 12-03-2022 Thin prep Papanicolaou smear with manual screening 23 U/L 15-37 [facility] Thin prep Papanicolaou smear with manual screening 5 5-15 [facility] No Panel Informationon 10-23 POC SARS CoV-2 Antigen Negative [facility] Basophil percentageOrdered B y: Dr. Perry on 07-12-2022 Basophil percentage < 0.9 mg/dL 0.55-1.02 [facility] No Panel InformationOrdered By: Dr. Perry on 07-12-2022 Bedside Estimated GFR (eGFR) > 60.0000 mL/min >60 [facility] Laboratory - Microbiology an d Antimicrobial susceptibilityon 07-07-2022 SARS-CoV-2 (COVID-19) RNA LÁZARO+probe Ql (Unsp spec) Not detected [facility] No Panel Informationon 07-07 Influenza Types A,B Rapid (Clinic) Not detected [facility] Absolute lymphocyte counton 03-07-2022 Lymphocytes Auto (Unsp spec) [#/Vol] 2.14 10*3/uL 0.83-4.51 [facility] Work Phone: Basophil percentageon 2021 Basophils/100 WBC (Bld) 0.9 % 0-1 [facility] Work Phone: [phone] Bilirubin [Mass/Vol] 0.60 mg/dL 0.20-1.00 [facility] Work Phone: Comment on above: For patients on eltr ombopag therapy, use of Dimension [place] TBIL is not recommended. Chloride [Moles/Vol] 108 mmol/L 98-107 [facility] Work Phone: Eosinophils/100 WBC (Bld) 2.6 % 0-5 [facility] Work Phone: Glucose [Mass/Vol] 92 mg/dL 74-106 [facility] Work Phone: Neutrophils (Bld) [#/Vol] 3.7 10*3/uL 2.0-7.7 [facility] Work Phone: Neutrophils/100 WBC (Bld) 57.3 % 47-70 [facility] Work Phone: [phone] Potassium [Moles/Vol] 4.3 mmol/L 3.5-5.1 [facility] Work Phone: Protein [Mass/Vol] 7.3 g/dL 6.4-8.2 [facility] Work Phone: Sodium [Moles/Vol] 137 mmol/L 136-145 [facility] Work Phone: WBC (Bld) [#/Vol] 6.5 10*3/uL 4.4-11.0 [facility] Work Phone: Blood erythrocytes count (nu mber/volume)on 03-07-2022 RBC (Bld) [#/Vol] 4.68 10*6/uL 4.2-5.4 [facility] Work Phone: Blood hemoglobin measurement (mass/volume)on 03-07-2022 Hemoglobin (Bld) [Mass/Vol] 13.6 g/dL 12.0-15.0 [facility] Work Phone: Blood lymphocytes/100 leukoc yteson 03-07-2022 Lymphocytes/100 WBC (Bld) 32.9 % 19-41 [facility] Work Phone: Blood monocytes/100 leukocyt eson 03-07-2022 Monocytes/100 WBC (Bld) 6.0 % 0-10 [facility] Work Phone: Blood platelet mean volumeon 03-07-2022 Platelet mean volume (Bld) [Entitic vol] 11.1 fL 6.2-12.0 [facility] Work Phone: Determination of erythrocyte mean corpuscular volume (MCV)on 03-07-2022 MCV (RBC) [Entitic vol] 89.1 fL 81-99 [facility] Work Phone: Hematocrit Auto (Bld) [Volum e fraction]on 03-07-2022 Hematocrit (Bld) [Volume fraction] 41.7 % 37-47 [facility] Work Phone: Laboratory - Chemistry and C hemistry - challengeon 03-07-2022 ALP [Catalytic activity/Vol] 74 U/L 45-117 [facility] Work Phone: ALT [Catalytic activity/Vol] 17 U/L 13-56 [facility] Work Phone: CO2 [Moles/Vol] 23.0 mmol/L 21.0-32.0 [facility] Work Phone: Globulin (S) [Mass/Vol] 3.7 g/dL 2.2-4.2 [facility] Work Phone: Urea nitrogen/Creatinine [Mass ratio] 15.7 mg/mg 10-20 [facility] Work Phone: Laboratory - Hematology and Cell countson 03-07-2022 Erythrocyte distribution width (RBC) [Entitic vol] 43.3 fL 35.1-43.9 [facility] Work Phone: Erythrocyte distribution width (RBC) [Ratio] 13.2 % 11.6-14.6 [facility] Work Phone: Immature granulocytes/100 WBC (Bld) 0.300 % 0.0-0.9 [facility] Work Phone: Comment on above: IG% - Immature Granu locytes (promyelocytes, myelocytes and metamyelocytes) > 1% indicates that a LEFT SHIFT is Present. MCH (RBC) [Entitic mass] 29.1 pg 27.0-32.0 [facility] Work Phone: Nucleated RBC/100 WBC (Bld) [Ratio] 0 % 0-5 [facility] Work Phone: MCHC Auto (RBC) [Mass/Vol]on 03-07-2022 MCHC (RBC) [Mass/Vol] 32.6 g/dL 32-36 [facility] Work Phone: No Panel Informationon 03-07 Estimated GFR (MDRD) Amer 63 mL/min >60 [facility] Work Phone: Comment on above: GFR Calc Estimated GFR (MDRD) Non-Af Amer 52 mL/min >60 [facility] Work Phone: Comment on above: Non- GFR Calc Thyroid Stimulating Hormone (TSH) 2.09 uIU/mL 0.358-3.74 [facility] Work Phone: Vitamin D 25-Hydroxy 37.8 ng/mL [facility] Work Phone: Comment on above: Vitamin D 25(OH) Sta tus Range Deficiency <20 ng/mL (50nmol/L) Insufficiency 20 - 30 ng/mL (50 - 75 nmol/L) Sufficiency 30 - 100 ng/mL (75 - 250 nmol/L) Toxicity >100 ng/mL (>250 nmol/L) Platelets bldon 03-07-2022 Platelets (Bld) [#/Vol] 220 10*3/uL 150-450 [facility] Work Phone: Serum or plasma albumin osiris urement (mass/volume)on 03-07-2022 Albumin [Mass/Vol] 3.6 g/dL 3.2-5.0 [facility] Work Phone: Serum or plasma albumin/glob ulin mass ratioon 03-07-2022 Albumin/Globulin [Mass ratio] 1.0 {ratio} 0.9-2.4 [facility] Work Phone: Serum or plasma calcium osiris urement (mass/volume)on 03-07-2022 Calcium [Mass/Vol] 8.7 mg/dL 8.5-10.1 [facility] Work Phone: Serum or plasma creatinine m easurement (mass/volume)on 03-07-2022 Creatinine [Mass/Vol] 1.08 mg/dL 0.55-1.02 [facility] Work Phone: Comment on above: The validity of the calculated GFR & GFRAA in patients over 70 years has not been determined. Clinical correlation is essential. Serum or plasma urea nitroge n measurement (mass/volume)on 03-07-2022 Urea nitrogen [Mass/Vol] 17 mg/dL 7-18 [facility] Work Phone: Thin prep Papanicolaou smear with manual screeningon 03-07-2022 Thin prep Papanicolaou smear with manual screening 15 U/L 15-37 [facility] Work Phone: Thin prep Papanicolaou smear with manual screening 6 5-15 [facility] Work Phone: No Panel Informationon 02-25 Homocysteine 11.6 umol/L 3.2-10.7 [facility] Work Phone: Serum or plasma methylmalona te measurement (moles/volume)on 02-25-2022 Methylmalonate [Moles/Vol] 214 nmol/L 0-378 [facility] Work Phone: Comment on above: Performed at: [address] [id number] Director: Leanna Muse MD, Phone: [phone] Absolute lymphocyte counton 02-15-2022 Lymphocytes Auto (Unsp spec) [#/Vol] 0.52 10*3/uL 0.83-4.51 [facility] Work Phone: Basophil percentageon 2021 Basophil percentage 0-5 SEEN /hpf 0-5 [facility] [facility] Work Phone: Basophils/100 WBC (Bld) 0.3 % 0-1 [facility] Work Phone: Chloride [Moles/Vol] 108 mmol/L 98-107 [facility] Work Phone: Eosinophils/100 WBC (Bld) 0.7 % 0-5 [facility] Work Phone: Glucose [Mass/Vol] 100 mg/dL 74-106 [facility] Work Phone: Comment on above: Fasting Glucose resu lt from 100 to 125 mg/dL suggests IMPAIRED HOMEOSTASIS per A.D.A. criteria. Neutrophils (Bld) [#/Vol] 4.9 10*3/uL 2.0-7.7 [facility] Work Phone: Neutrophils/100 WBC (Bld) 85.0 % 47-70 [facility] Work Phone: Potassium [Moles/Vol] 3.9 mmol/L 3.5-5.1 [facility] Work Phone: Sodium [Moles/Vol] 137 mmol/L 136-145 [facility] Work Phone: WBC (Bld) [#/Vol] 5.8 10*3/uL 4.4-11.0 [facility] Work Phone: Bilirubin Test strip Ql (U)o n 02-15-2022 Bilirubin Ql (U) Negative Negative [facility] Work Phone: Blood erythrocytes count (nu mber/volume)on 02-15-2022 RBC (Bld) [#/Vol] 4.99 10*6/uL 4.2-5.4 [facility] Work Phone: Blood hemoglobin measurement (mass/volume)on 02-15-2022 Hemoglobin (Bld) [Mass/Vol] 14.4 g/dL 12.0-15.0 [facility] Work Phone: Blood lymphocytes/100 leukoc yteson 02-15-2022 Lymphocytes/100 WBC (Bld) 8.9 % 19-41 [facility] Work Phone: Blood manual differential co mment interpretation (narrative result)on 02-15-2022 Manual differential comment Jd (Bld) [Interp] See comment [facility] Work Phone: Comment on above: LYMPHOPENIA NOTED Blood monocytes/100 leukocyt eson 02-15-2022 Monocytes/100 WBC (Bld) 4.8 % 0-10 [facility] Work Phone: Blood platelet adequacy dete ction by light microscopyon 02-15-2022 Platelets LM Ql (Bld) ADEQUATE ADEQ [facility] Work Phone: Blood platelet mean volumeon 02-15-2022 Platelet mean volume (Bld) [Entitic vol] 10.8 fL 6.2-12.0 [facility] Work Phone: Determination of erythrocyte mean corpuscular volume (MCV)on 02-15-2022 MCV (RBC) [Entitic vol] 88.2 fL 81-99 [facility] Work Phone: Hematocrit Auto (Bld) [Volum e fraction]on 02-15-2022 Hematocrit (Bld) [Volume fraction] 44.0 % 37-47 [facility] Work Phone: Ketones Test strip Ql (U)on 02-15-2022 Ketones Ql (U) Negative Negative [facility] Work Phone: Laboratory - Chemistry and C hemistry - challengeon 02-15-2022 CO2 [Moles/Vol] 22.0 mmol/L 21.0-32.0 [facility] Work Phone: Urea nitrogen/Creatinine [Mass ratio] 15.1 mg/mg 10-20 [facility] Work Phone: Laboratory - Hematology and Cell countson 02-15-2022 Erythrocyte distribution width (RBC) [Entitic vol] 41.2 fL 35.1-43.9 [facility] Work Phone: Erythrocyte distribution width (RBC) [Ratio] 12.7 % 11.6-14.6 [facility] Work Phone: Immature granulocytes/100 WBC (Bld) 0.300 % 0.0-0.9 [facility] Work Phone: Comment on above: IG% - Immature Granu locytes (promyelocytes, myelocytes and metamyelocytes) > 1% indicates that a LEFT SHIFT is Present. MCH (RBC) [Entitic mass] 28.9 pg 27.0-32.0 [facility] Work Phone: Nucleated RBC/100 WBC (Bld) [Ratio] 0 % 0-5 [facility] Work Phone: MCHC Auto (RBC) [Mass/Vol]on 02-15-2022 MCHC (RBC) [Mass/Vol] 32.7 g/dL 32-36 [facility] Work Phone: Mucus LM Ql (Urine sed)on Mucus Ql (Urine sed) 0 SEEN /hpf [facility] Work Phone: Nitrite Test strip Ql (U)on 02-15-2022 Nitrite Ql (U) Positive Negative [facility] Work Phone: No Panel Informationon 02-15 Estimated Creatinine Clearance Calc 40.33 ml/min [facility] Work Phone: Estimated GFR (MDRD) Amer 99 mL/min >60 [facility] Work Phone: Comment on above: GFR Calc Estimated GFR (MDRD) Non-Af Amer 82 mL/min >60 [facility] Work Phone: Comment on above: Non- GFR Calc Platelets bldon 02-15-2022 Platelets (Bld) [#/Vol] 169 10*3/uL 150-450 [facility] Work Phone: Protein Test strip Ql (U)on 02-15-2022 Protein Ql (U) Negative Negative [facility] Work Phone: RBC morphologyon 02-15-2022 RBC morphology finding Nom (Bld) NORM C+C NORMAL NORM C&C [facility] Work Phone: Serum or plasma calcium osiris urement (mass/volume)on 02-15-2022 Calcium [Mass/Vol] 8.1 mg/dL 8.5-10.1 [facility] Work Phone: Serum or plasma creatinine m easurement (mass/volume)on 02-15-2022 Creatinine [Mass/Vol] 0.73 mg/dL 0.55-1.02 [facility] Work Phone: Comment on above: The validity of the calculated GFR & GFRAA in patients over 70 years has not been determined. Clinical correlation is essential. Serum or plasma urea nitroge n measurement (mass/volume)on 02-15-2022 Urea nitrogen [Mass/Vol] 11 mg/dL 7-18 [facility] Work Phone: Squamous epithelial cells de tection in urine sediment by light microscopyon 02-15-2022 Epithelial cells.squamous LM Ql (Urine sed) 0 SEEN /hpf 5-10 [facility] Work Phone: Thin prep Papanicolaou smear with manual screeningon 02-15-2022 Thin prep Papanicolaou smear with manual screening 7 5-15 [facility] Work Phone: Urine blood detectionon 07-0 RBC Ql (U) 25 /ul Negative [facility] Work Phone: RBC Ql (U) 0 SEEN /hpf 0-5 [facility] Work Phone: Urine clarityon 02-15-2022 Clarity (U) Clear Clear [facility] Work Phone: Urine color determinationon 02-15-2022 Color (U) Yellow Yellow [facility] Work Phone: Urine glucose detectionon Glucose Ql (U) Normal mg/dl Normal [facility] Work Phone: Urine leukocyte esterase det ection by dipstickon 02-15-2022 Leukocyte esterase Test strip Ql (U) 25 /ul Negative [facility] Work Phone: Urine pHon 02-15-2022 pH (U) 6.0 [pH] 5.0 - 8.0 [facility] Work Phone: Urine sediment bacteria coun t by microscopy (number/high power field)on 02-15-2022 Bacteria LM.HPF (Urine sed) [#/Area] 2 /[HPF] None Seen [facility] Work Phone: Urine specific gravity measu rementon 02-15-2022 Specific gravity (U) [Rel density] 1.010 1.002-1.030 [facility] Work Phone: Urobilinogen Auto test strip Ql (U)on 02-15-2022 Urobilinogen Ql (U) Normal mg/dl Normal [facility] Work Phone: Iron measurement (mass/mass) on 02-14-2022 Iron (Unsp spec) [Mass/Mass] 73 ug/dL 50-170 [facility] Work Phone: [phone] Laboratory - Chemistry and C hemistry - challengeon 02-14-2022 Cobalamin (Vitamin B12) [Mass/Vol] 318 pg/mL 211-911 [facility] Work Phone: Absolute lymphocyte counton 11-23-2021 Lymphocytes Auto (Unsp spec) [#/Vol] 1.90 10*3/uL 0.83-4.51 [facility] Work Phone: Basophil percentageon 2021 Basophils/100 WBC (Bld) 0.3 % 0-1 [facility] Work Phone: [phone] Bilirubin [Mass/Vol] 1.70 mg/dL 0.20-1.00 [facility] Work Phone: Comment on above: For patients on eltr ombopag therapy, use of Dimension [place] TBIL is not recommended. Chloride [Moles/Vol] 105 mmol/L 98-107 [facility] Work Phone: Eosinophils/100 WBC (Bld) 0.3 % 0-5 [facility] Work Phone: [phone] Glucose [Mass/Vol] 101 mg/dL 74-106 [facility] Work Phone: Comment on above: Fasting Glucose resu lt from 100 to 125 mg/dL suggests IMPAIRED HOMEOSTASIS per A.D.A. criteria. Neutrophils (Bld) [#/Vol] 10.2 10*3/uL 2.0-7.7 [facility] Work Phone: Neutrophils/100 WBC (Bld) 78.9 % 47-70 [facility] Work Phone: [phone] Potassium [Moles/Vol] 3.6 mmol/L 3.5-5.1 [facility] Work Phone: Protein [Mass/Vol] 7.5 g/dL 6.4-8.2 [facility] Work Phone: Sodium [Moles/Vol] 135 mmol/L 136-145 [facility] Work Phone: WBC (Bld) [#/Vol] 12.9 10*3/uL 4.4-11.0 [facility] Work Phone: Blood erythrocytes count (nu mber/volume)on 11-23-2021 RBC (Bld) [#/Vol] 4.29 10*6/uL 4.2-5.4 [facility] Work Phone: Blood hemoglobin measurement (mass/volume)on 11-23-2021 Hemoglobin (Bld) [Mass/Vol] 13.0 g/dL 12.0-15.0 [facility] Work Phone: Blood lymphocytes/100 leukoc yteson 11-23-2021 Lymphocytes/100 WBC (Bld) 14.7 % 19-41 [facility] Work Phone: Blood monocytes/100 leukocyt eson 11-23-2021 Monocytes/100 WBC (Bld) 5.3 % 0-10 [facility] Work Phone: Blood platelet mean volumeon 11-23-2021 Platelet mean volume (Bld) [Entitic vol] 11.3 fL 6.2-12.0 [facility] Work Phone: Determination of erythrocyte mean corpuscular volume (MCV)on 11-23-2021 MCV (RBC) [Entitic vol] 93.2 fL 81-99 [facility] Work Phone: Hematocrit Auto (Bld) [Volum e fraction]on 11-23-2021 Hematocrit (Bld) [Volume fraction] 40.0 % 37-47 [facility] Work Phone: Laboratory - Chemistry and C hemistry - challengeon 11-23-2021 ALP [Catalytic activity/Vol] 139 U/L 45-117 [facility] Work Phone: ALT [Catalytic activity/Vol] 15 U/L 13-56 [facility] Work Phone: [phone] CO2 [Moles/Vol] 21.0 mmol/L 21.0-32.0 [facility] Work Phone: Globulin (S) [Mass/Vol] 4.5 g/dL 2.2-4.2 [facility] Work Phone: Urea nitrogen/Creatinine [Mass ratio] 20.4 mg/mg 10-20 [facility] Work Phone: Laboratory - Hematology and Cell countson 11-23-2021 Erythrocyte distribution width (RBC) [Entitic vol] 45.5 fL 35.1-43.9 [facility] Work Phone: Erythrocyte distribution width (RBC) [Ratio] 13.3 % 11.6-14.6 [facility] Work Phone: Immature granulocytes/100 WBC (Bld) 0.500 % 0.0-0.9 [facility] Work Phone: Comment on above: IG% - Immature Granu locytes (promyelocytes, myelocytes and metamyelocytes) > 1% indicates that a LEFT SHIFT is Present. MCH (RBC) [Entitic mass] 30.3 pg 27.0-32.0 [facility] Work Phone: Nucleated RBC/100 WBC (Bld) [Ratio] 0 % 0-5 [facility] Work Phone: MCHC Auto (RBC) [Mass/Vol]on 11-23-2021 MCHC (RBC) [Mass/Vol] 32.5 g/dL 32-36 [facility] Work Phone: No Panel Informationon 11-23 Estimated GFR (MDRD) Amer 80 mL/min >60 [facility] Work Phone: [phone] Comment on above: GFR Calc Estimated GFR (MDRD) Non-Af Amer 66 mL/min >60 [facility] Work Phone: Comment on above: Non- GFR Calc Thyroid Stimulating Hormone (TSH) 2.66 uIU/mL 0.358-3.74 [facility] Work Phone: Vitamin D 25-Hydroxy 46.1 ng/mL [facility] Work Phone: Comment on above: Vitamin D 25(OH) Sta tus Range Deficiency <20 ng/mL (50nmol/L) Insufficiency 20 - 30 ng/mL (50 - 75 nmol/L) Sufficiency 30 - 100 ng/mL (75 - 250 nmol/L) Toxicity >100 ng/mL (>250 nmol/L) Platelets bldon 11-23-2021 Platelets (Bld) [#/Vol] 209 10*3/uL 150-450 [facility] Work Phone: Serum or plasma albumin osiris urement (mass/volume)on 11-23-2021 Albumin [Mass/Vol] 3.0 g/dL 3.2-5.0 [facility] Work Phone: Serum or plasma albumin/glob ulin mass ratioon 11-23-2021 Albumin/Globulin [Mass ratio] 0.7 {ratio} 0.9-2.4 [facility] Work Phone: Serum or plasma calcium osiris urement (mass/volume)on 11-23-2021 Calcium [Mass/Vol] 8.9 mg/dL 8.5-10.1 [facility] Work Phone: Serum or plasma creatinine m easurement (mass/volume)on 11-23-2021 Creatinine [Mass/Vol] 0.88 mg/dL 0.55-1.02 [facility] Work Phone: Comment on above: The validity of the calculated GFR & GFRAA in patients over 70 years has not been determined. Clinical correlation is essential. Serum or plasma urea nitroge n measurement (mass/volume)on 11-23-2021 Urea nitrogen [Mass/Vol] 18 mg/dL 7-18 [facility] Work Phone: Thin prep Papanicolaou smear with manual screeningon 11-23-2021 Thin prep Papanicolaou smear with manual screening 20 U/L 15-37 [facility] Work Phone: Thin prep Papanicolaou smear with manual screening 9 5-15 [facility] Work Phone: Absolute lymphocyte counton 10-06-2021 Lymphocytes Auto (Unsp spec) [#/Vol] 1.63 10*3/uL 0.83-4.51 [facility] Work Phone: Basophil percentageon 2021 Basophils/100 WBC (Bld) 0.7 % 0-1 [facility] Work Phone: Chloride [Moles/Vol] 107 mmol/L 98-107 [facility] Work Phone: Eosinophils/100 WBC (Bld) 1.1 % 0-5 [facility] Work Phone: Glucose [Mass/Vol] 104 mg/dL 74-106 [facility] Work Phone: Comment on above: Fasting Glucose resu lt from 100 to 125 mg/dL suggests IMPAIRED HOMEOSTASIS per A.D.A. criteria. Neutrophils (Bld) [#/Vol] 5.2 10*3/uL 2.0-7.7 [facility] Work Phone: Neutrophils/100 WBC (Bld) 69.3 % 47-70 [facility] Work Phone: Potassium [Moles/Vol] 3.8 mmol/L 3.5-5.1 [facility] Work Phone: Sodium [Moles/Vol] 137 mmol/L 136-145 [facility] Work Phone: WBC (Bld) [#/Vol] 7.5 10*3/uL 4.4-11.0 [facility] Work Phone: Blood erythrocytes count (nu mber/volume)on 02-19-2022 RBC (Bld) [#/Vol] 4.03 10*6/uL 4.2-5.4 [facility] Work Phone: Blood hemoglobin measurement (mass/volume)on 10-06-2021 Hemoglobin (Bld) [Mass/Vol] 12.6 g/dL 12.0-15.0 [facility] Work Phone: Blood lymphocytes/100 leukoc yteson 10-06-2021 Lymphocytes/100 WBC (Bld) 21.7 % 19-41 [facility] Work Phone: Blood monocytes/100 leukocyt eson 10-06-2021 Monocytes/100 WBC (Bld) 6.8 % 0-10 [facility] Work Phone: Blood platelet mean volumeon 10-06-2021 Platelet mean volume (Bld) [Entitic vol] 10.1 fL 6.2-12.0 [facility] Work Phone: Determination of erythrocyte mean corpuscular volume (MCV)on 10-06-2021 MCV (RBC) [Entitic vol] 91.6 fL 81-99 [facility] Work Phone: Hematocrit Auto (Bld) [Volum e fraction]on 10-06-2021 Hematocrit (Bld) [Volume fraction] 36.9 % 37-47 [facility] Work Phone: Laboratory - Chemistry and C hemistry - challengeon 10-06-2021 CO2 [Moles/Vol] 25.0 mmol/L 21.0-32.0 [facility] Work Phone: Urea nitrogen/Creatinine [Mass ratio] 32.1 mg/mg 10-20 [facility] Work Phone: Laboratory - Hematology and Cell countson 10-06-2021 Erythrocyte distribution width (RBC) [Entitic vol] 45.9 fL 35.1-43.9 [facility] Work Phone: Erythrocyte distribution width (RBC) [Ratio] 13.7 % 11.6-14.6 [facility] Work Phone: Immature granulocytes/100 WBC (Bld) 0.400 % 0.0-0.9 [facility] Work Phone: Comment on above: IG% - Immature Granu locytes (promyelocytes, myelocytes and metamyelocytes) > 1% indicates that a LEFT SHIFT is Present. MCH (RBC) [Entitic mass] 31.3 pg 27.0-32.0 [facility] Work Phone: Nucleated RBC/100 WBC (Bld) [Ratio] 0 % 0-5 [facility] Work Phone: MCHC Auto (RBC) [Mass/Vol]on 10-06-2021 MCHC (RBC) [Mass/Vol] 34.1 g/dL 32-36 [facility] Work Phone: No Panel Informationon 10-06 Estimated Creatinine Clearance Calc 40.18 ml/min [facility] Work Phone: Estimated GFR (MDRD) Amer 126 mL/min >60 [facility] Work Phone: Comment on above: GFR Calc Estimated GFR (MDRD) Non-Af Amer 104 mL/min >60 [facility] Work Phone: Comment on above: Non- GFR Calc Platelets bldon 10-06-2021 Platelets (Bld) [#/Vol] 207 10*3/uL 150-450 [facility] Work Phone: Serum or plasma calcium osiris urement (mass/volume)on 10-06-2021 Calcium [Mass/Vol] 8.3 mg/dL 8.5-10.1 [facility] Work Phone: Serum or plasma creatinine m easurement (mass/volume)on 10-06-2021 Creatinine [Mass/Vol] 0.59 mg/dL 0.55-1.02 [facility] Work Phone: Comment on above: The validity of the calculated GFR & GFRAA in patients over 70 years has not been determined. Clinical correlation is essential. Serum or plasma urea nitroge n measurement (mass/volume)on 10-06-2021 Urea nitrogen [Mass/Vol] 19 mg/dL 7-18 [facility] Work Phone: Thin prep Papanicolaou smear with manual screeningon 10-06-2021 Thin prep Papanicolaou smear with manual screening 5 5-15 [facility] Work Phone: Basophil percentageon 2021 Basophil percentage 0 SEEN /hpf [facility] Work Phone: Bilirubin [Mass/Vol] 0.70 mg/dL 0.20-1.00 [facility] Work Phone: Comment on above: For patients on eltr ombopag therapy, use of Dimension [place] TBIL is not recommended. Protein [Mass/Vol] 6.9 g/dL 6.4-8.2 [facility] Work Phone: Bilirubin Test strip Ql (U)o n 10-05-2021 Bilirubin Ql (U) Negative Negative [facility] Work Phone: Ketones Test strip Ql (U)on 10-05-2021 Ketones Ql (U) Negative Negative [facility] Work Phone: Laboratory - Chemistry and C hemistry - challengeon 10-05-2021 ALP [Catalytic activity/Vol] 139 U/L 45-117 [facility] Work Phone: ALT [Catalytic activity/Vol] 16 U/L 13-56 [facility] Work Phone: Globulin (S) [Mass/Vol] 3.9 g/dL 2.2-4.2 [facility] Work Phone: Mucus LM Ql (Urine sed)on Mucus Ql (Urine sed) 0 SEEN /hpf [facility] Work Phone: Nitrite Test strip Ql (U)on 10-05-2021 Nitrite Ql (U) Negative Negative [facility] Work Phone: No Panel Informationon 10-05 Troponin I High Sensitivity 8 pg/mL 3.0-54.0 [facility] Work Phone: Comment on above: Please Note: New [place] t Units and Gender Specific Reference Ranges. For more information see Policy Stat Procedure [place] High Sensitivity Troponin (TNIH) and attachments. SARS-CoV-2 Antigen (Rapid) [facility] Work Phone: Protein Test strip Ql (U)on 10-05-2021 Protein Ql (U) 30 mg/dl Negative [facility] Work Phone: Serum or plasma albumin osiris urement (mass/volume)on 10-05-2021 Albumin [Mass/Vol] 3.0 g/dL 3.2-5.0 [facility] Work Phone: Serum or plasma albumin/glob ulin mass ratioon 10-05-2021 Albumin/Globulin [Mass ratio] 0.8 {ratio} 0.9-2.4 [facility] Work Phone: Squamous epithelial cells de tection in urine sediment by light microscopyon 10-05-2021 Epithelial cells.squamous LM Ql (Urine sed) 0-5 SEEN /hpf [facility] Work Phone: Thin prep Papanicolaou smear with manual screeningon 10-05-2021 Thin prep Papanicolaou smear with manual screening 12 U/L 15-37 [facility] Work Phone: Urine blood detectionon 09-18 RBC Ql (U) Negative Negative [facility] Work Phone: RBC Ql (U) 0 SEEN /hpf [facility] Work Phone: Urine clarityon 10-05-2021 Clarity (U) Clear Clear [facility] Work Phone: Urine color determinationon 10-05-2021 Color (U) Yellow Yellow [facility] Work Phone: Urine glucose detectionon Glucose Ql (U) Normal mg/dl Normal [facility] Work Phone: Urine leukocyte esterase det ection by dipstickon 10-05-2021 Leukocyte esterase Test strip Ql (U) Negative Negative [facility] Work Phone: Urine pHon 10-05-2021 pH (U) 6.0 [pH] [facility] Work Phone: Urine sediment bacteria coun t by microscopy (number/high power field)on 10-05-2021 Bacteria LM.HPF (Urine sed) [#/Area] 0 /[HPF] None Seen [facility] Work Phone: Urine specific gravity measu rementon 10-05-2021 Specific gravity (U) [Rel density] 1.020 [facility] Work Phone: Urobilinogen Auto test strip Ql (U)on 10-05-2021 Urobilinogen Ql (U) Normal mg/dl Normal [facility] Work Phone: Absolute lymphocyte counton 10-03-2021 Lymphocytes Auto (Unsp spec) [#/Vol] 1.64 10*3/uL 0.83-4.51 [facility] Work Phone: Basophil percentageon 2021 Basophils/100 WBC (Bld) 0.6 % 0-1 [facility] Work Phone: Chloride [Moles/Vol] 111 mmol/L 98-107 [facility] Work Phone: Eosinophils/100 WBC (Bld) 1.5 % 0-5 [facility] Work Phone: [phone] Glucose [Mass/Vol] 99 mg/dL 74-106 [facility] Work Phone: Neutrophils (Bld) [#/Vol] 4.5 10*3/uL 2.0-7.7 [facility] Work Phone: [phone] Neutrophils/100 WBC (Bld) 66.6 % 47-70 [facility] Work Phone: Potassium [Moles/Vol] 4.0 mmol/L 3.5-5.1 [facility] Work Phone: Sodium [Moles/Vol] 139 mmol/L 136-145 [facility] Work Phone: WBC (Bld) [#/Vol] 6.7 10*3/uL 4.4-11.0 [facility] Work Phone: Blood erythrocytes count (nu mber/volume)on 10-03-2021 RBC (Bld) [#/Vol] 4.12 10*6/uL 4.2-5.4 [facility] Work Phone: Blood hemoglobin measurement (mass/volume)on 10-03-2021 Hemoglobin (Bld) [Mass/Vol] 12.5 g/dL 12.0-15.0 [facility] Work Phone: Blood lymphocytes/100 leukoc yteson 10-03-2021 Lymphocytes/100 WBC (Bld) 24.4 % 19-41 [facility] Work Phone: Blood monocytes/100 leukocyt eson 10-03-2021 Monocytes/100 WBC (Bld) 6.5 % 0-10 [facility] Work Phone: Blood platelet mean volumeon 10-03-2021 Platelet mean volume (Bld) [Entitic vol] 9.7 fL 6.2-12.0 [facility] Work Phone: Determination of erythrocyte mean corpuscular volume (MCV)on 10-03-2021 MCV (RBC) [Entitic vol] 93.0 fL 81-99 [facility] Work Phone: Hematocrit Auto (Bld) [Volum e fraction]on 10-03-2021 Hematocrit (Bld) [Volume fraction] 38.3 % 37-47 [facility] Work Phone: Laboratory - Chemistry and C hemistry - challengeon 10-03-2021 CO2 [Moles/Vol] 26.0 mmol/L 21.0-32.0 [facility] Work Phone: Urea nitrogen/Creatinine [Mass ratio] 26.5 mg/mg 10-20 [facility] Work Phone: Laboratory - Hematology and Cell countson 10-03-2021 Erythrocyte distribution width (RBC) [Entitic vol] 46.9 fL 35.1-43.9 [facility] Work Phone: Erythrocyte distribution width (RBC) [Ratio] 13.7 % 11.6-14.6 [facility] Work Phone: Immature granulocytes/100 WBC (Bld) 0.400 % 0.0-0.9 [facility] Work Phone: Comment on above: IG% - Immature Granu locytes (promyelocytes, myelocytes and metamyelocytes) > 1% indicates that a LEFT SHIFT is Present. MCH (RBC) [Entitic mass] 30.3 pg 27.0-32.0 [facility] Work Phone: Nucleated RBC/100 WBC (Bld) [Ratio] 0 % 0-5 [facility] Work Phone: MCHC Auto (RBC) [Mass/Vol]on 10-03-2021 MCHC (RBC) [Mass/Vol] 32.6 g/dL 32-36 [facility] Work Phone: No Panel Informationon 10-03 Estimated Creatinine Clearance Calc 41.32 ml/min [facility] Work Phone: Estimated GFR (MDRD) Amer 107 mL/min >60 [facility] Work Phone: Comment on above: GFR Calc Estimated GFR (MDRD) Non-Af Amer 89 mL/min >60 [facility] Work Phone: Comment on above: Non- GFR Calc Platelets bldon 10-03-2021 Platelets (Bld) [#/Vol] 197 10*3/uL 150-450 [facility] Work Phone: Serum or plasma calcium osiris urement (mass/volume)on 10-03-2021 Calcium [Mass/Vol] 8.4 mg/dL 8.5-10.1 [facility] Work Phone: Serum or plasma creatinine m easurement (mass/volume)on 10-03-2021 Creatinine [Mass/Vol] 0.68 mg/dL 0.55-1.02 [facility] Work Phone: Comment on above: The validity of the calculated GFR & GFRAA in patients over 70 years has not been determined. Clinical correlation is essential. Serum or plasma urea nitroge n measurement (mass/volume)on 10-03-2021 Urea nitrogen [Mass/Vol] 18 mg/dL 7-18 [facility] Work Phone: Thin prep Papanicolaou smear with manual screeningon 10-03-2021 Thin prep Papanicolaou smear with manual screening 2 5-15 [facility] Work Phone: Basophil percentageon 2021 Bilirubin [Mass/Vol] 0.40 mg/dL 0.20-1.00 [facility] Work Phone: Comment on above: For patients on eltr ombopag therapy, use of Dimension [place] TBIL is not recommended. Protein [Mass/Vol] 5.9 g/dL 6.4-8.2 [facility] Work Phone: Laboratory - Chemistry and C hemistry - challengeon 09-21-2021 ALP [Catalytic activity/Vol] 112 U/L 45-117 [facility] Work Phone: ALT [Catalytic activity/Vol] 18 U/L 13-56 [facility] Work Phone: Globulin (S) [Mass/Vol] 3.3 g/dL 2.2-4.2 [facility] Work Phone: Serum or plasma albumin osiris urement (mass/volume)on 09-21-2021 Albumin [Mass/Vol] 2.6 g/dL 3.2-5.0 [facility] Work Phone: Serum or plasma albumin/glob ulin mass ratioon 09-21-2021 Albumin/Globulin [Mass ratio] 0.8 {ratio} 0.9-2.4 [facility] Work Phone: Thin prep Papanicolaou smear with manual screeningon 09-21-2021 Thin prep Papanicolaou smear with manual screening 14 U/L 15-37 [facility] Work Phone: Direct bilirubinon 2 Bilirubin.direct [Mass/Vol] 0.13 mg/dL 0.00-0.30 [facility] Work Phone: No Panel Informationon 09-19 SARS-CoV-2 Antigen (Rapid) SARS-CoV-2 (COVID 19) [facility] Work Phone: Basophil percentageon 2021 Basophil percentage 0 SEEN /hpf [facility] Work Phone: Bilirubin Test strip Ql (U)o n 09-18-2021 Bilirubin Ql (U) Negative Negative [facility] Work Phone: Culture, urineon 09-18-2021 Bacteria identified Cx Nom (U) Lactobacillus gasseri [facility] Work Phone: Ketones Test strip Ql (U)on 09-18-2021 Ketones Ql (U) 5 mg/dl Negative [facility] Work Phone: Mucus LM Ql (Urine sed)on Mucus Ql (Urine sed) 0 SEEN /hpf [facility] Work Phone: Nitrite Test strip Ql (U)on 09-18-2021 Nitrite Ql (U) Negative Negative [facility] Work Phone: Protein Test strip Ql (U)on 09-18-2021 Protein Ql (U) 30 mg/dl Negative [facility] Work Phone: Squamous epithelial cells de tection in urine sediment by light microscopyon 09-18-2021 Epithelial cells.squamous LM Ql (Urine sed) 0 SEEN /hpf [facility] Work Phone: Urine blood detectionon 02-0 RBC Ql (U) 10 /ul Negative [facility] Work Phone: RBC Ql (U) 0 SEEN /hpf [facility] Work Phone: Urine clarityon 09-18-2021 Clarity (U) Clear Clear [facility] Work Phone: Urine color determinationon 09-18-2021 Color (U) Yellow Yellow [facility] Work Phone: Urine glucose detectionon Glucose Ql (U) Normal mg/dl Normal [facility] Work Phone: Urine leukocyte esterase det ection by dipstickon 09-18-2021 Leukocyte esterase Test strip Ql (U) Negative Negative [facility] Work Phone: Urine pHon 09-18-2021 pH (U) 5.0 [pH] [facility] Work Phone: Urine sediment bacteria coun t by microscopy (number/high power field)on 09-18-2021 Bacteria LM.HPF (Urine sed) [#/Area] 1 /[HPF] None Seen [facility] Work Phone: Urine specific gravity measu rementon 09-18-2021 Specific gravity (U) [Rel density] 1.020 [facility] Work Phone: Urobilinogen Auto test strip Ql (U)on 09-18-2021 Urobilinogen Ql (U) Normal mg/dl Normal [facility] Work Phone: Absolute lymphocyte counton 09-04-2021 Lymphocytes Auto (Unsp spec) [#/Vol] 1.36 10*3/uL 0.83-4.51 [facility] Work Phone: Basophil percentageon 2021 Basophils/100 WBC (Bld) 0.2 % 0-1 [facility] Work Phone: Chloride [Moles/Vol] 105 mmol/L 98-107 [facility] Work Phone: Eosinophils/100 WBC (Bld) 0.3 % 0-5 [facility] Work Phone: Glucose [Mass/Vol] 108 mg/dL 74-106 [facility] Work Phone: Comment on above: Fasting Glucose resu lt from 100 to 125 mg/dL suggests IMPAIRED HOMEOSTASIS per A.D.A. criteria. Neutrophils (Bld) [#/Vol] 7.0 10*3/uL 2.0-7.7 [facility] Work Phone: Neutrophils/100 WBC (Bld) 78.7 % 47-70 [facility] Work Phone: Potassium [Moles/Vol] 3.7 mmol/L 3.5-5.1 [facility] Work Phone: Sodium [Moles/Vol] 137 mmol/L 136-145 [facility] Work Phone: WBC (Bld) [#/Vol] 8.9 10*3/uL 4.4-11.0 [facility] Work Phone: Blood erythrocytes count (nu mber/volume)on 09-04-2021 RBC (Bld) [#/Vol] 4.17 10*6/uL 4.2-5.4 [facility] Work Phone: Blood hemoglobin measurement (mass/volume)on 09-04-2021 Hemoglobin (Bld) [Mass/Vol] 12.8 g/dL 12.0-15.0 [facility] Work Phone: Blood lymphocytes/100 leukoc yteson 09-04-2021 Lymphocytes/100 WBC (Bld) 15.2 % 19-41 [facility] Work Phone: Blood monocytes/100 leukocyt eson 09-04-2021 Monocytes/100 WBC (Bld) 5.3 % 0-10 [facility] Work Phone: Blood platelet mean volumeon 09-04-2021 Platelet mean volume (Bld) [Entitic vol] 9.9 fL 6.2-12.0 [facility] Work Phone: Determination of erythrocyte mean corpuscular volume (MCV)on 09-04-2021 MCV (RBC) [Entitic vol] 90.9 fL 81-99 [facility] Work Phone: Hematocrit Auto (Bld) [Volum e fraction]on 09-04-2021 Hematocrit (Bld) [Volume fraction] 37.9 % 37-47 [facility] Work Phone: Laboratory - Chemistry and C hemistry - challengeon 09-04-2021 CO2 [Moles/Vol] 26.0 mmol/L 21.0-32.0 [facility] Work Phone: Urea nitrogen/Creatinine [Mass ratio] 33.7 mg/mg 10-20 [facility] Work Phone: Laboratory - Hematology and Cell countson 09-04-2021 Erythrocyte distribution width (RBC) [Entitic vol] 42.4 fL 35.1-43.9 [facility] Work Phone: Erythrocyte distribution width (RBC) [Ratio] 12.8 % 11.6-14.6 [facility] Work Phone: Immature granulocytes/100 WBC (Bld) 0.300 % 0.0-0.9 [facility] Work Phone: Comment on above: IG% - Immature Granu locytes (promyelocytes, myelocytes and metamyelocytes) > 1% indicates that a LEFT SHIFT is Present. MCH (RBC) [Entitic mass] 30.7 pg 27.0-32.0 [facility] Work Phone: Nucleated RBC/100 WBC (Bld) [Ratio] 0 % 0-5 [facility] Work Phone: MCHC Auto (RBC) [Mass/Vol]on 09-04-2021 MCHC (RBC) [Mass/Vol] 33.8 g/dL 32-36 [facility] Work Phone: No Panel Informationon 09-04 Estimated Creatinine Clearance Calc 44.29 ml/min [facility] Work Phone: Estimated GFR (MDRD) Amer 126 mL/min >60 [facility] Work Phone: Comment on above: GFR Calc Estimated GFR (MDRD) Non-Af Amer 104 mL/min >60 [facility] Work Phone: Comment on above: Non- GFR Calc Platelets bldon 09-04-2021 Platelets (Bld) [#/Vol] 181 10*3/uL 150-450 [facility] Work Phone: Serum or plasma calcium osiris urement (mass/volume)on 09-04-2021 Calcium [Mass/Vol] 8.1 mg/dL 8.5-10.1 [facility] Work Phone: Serum or plasma creatinine m easurement (mass/volume)on 09-04-2021 Creatinine [Mass/Vol] 0.59 mg/dL 0.55-1.02 [facility] Work Phone: Comment on above: The validity of the calculated GFR & GFRAA in patients over 70 years has not been determined. Clinical correlation is essential. Serum or plasma urea nitroge n measurement (mass/volume)on 09-04-2021 Urea nitrogen [Mass/Vol] 20 mg/dL -18 [facility] Work Phone: Thin prep Papanicolaou smear with manual screeningon 09-04-2021 Thin prep Papanicolaou smear with manual screening 6 5-15 [facility] Work Phone: Laboratory - Chemistry and C hemistry - challengeon 09-03-2021 Magnesium [Mass/Vol] 2.0 mg/dL 1.6-2.6 [facility] Work Phone: No Panel Informationon 09-03 SARS-CoV-2 Antigen (Rapid) [facility] Work Phone: Bilirubin Test strip Ql (U)o n 09-02-2021 Bilirubin Ql (U) Negative Negative [facility] Work Phone: Culture, urineon 09-02-2021 Bacteria identified Cx Nom (U) Mixed Gram Pos & Gram Neg Org [facility] Work Phone: INR in Blood by Coagulation assayon 09-02-2021 INR Coag (Bld) [Relative time] 1.1 {INR} [facility] Work Phone: Ketones Test strip Ql (U)on 09-02-2021 Ketones Ql (U) Negative Negative [facility] Work Phone: Laboratory - Coagulationon 0 09-02-2021 aPTT Coag (Bld) [Time] 25.9 s 24.1-36.2 [facility] Work Phone: PT Coag (PPP) [Time] 14.0 s 11.7-14.9 [facility] Work Phone: Nitrite Test strip Ql (U)on 09-02-2021 Nitrite Ql (U) Negative Negative [facility] Work Phone: Protein Test strip Ql (U)on 09-02-2021 Protein Ql (U) 100 mg/dl Negative [facility] Work Phone: Urine blood detectionon 08-18 RBC Ql (U) 150 /ul Negative [facility] Work Phone: Urine clarityon 09-02-2021 Clarity (U) Turbid Clear [facility] Work Phone: Urine color determinationon 09-02-2021 Color (U) Yellow Yellow [facility] Work Phone: Urine glucose detectionon Glucose Ql (U) Normal mg/dl Normal [facility] Work Phone: Urine leukocyte esterase det ection by dipstickon 09-02-2021 Leukocyte esterase Test strip Ql (U) 500 /ul Negative [facility] Work Phone: Urine pHon 09-02-2021 pH (U) 5.0 [pH] [facility] Work Phone: Urine specific gravity measu rementon 09-02-2021 Specific gravity (U) [Rel density] 1.025 [facility] Work Phone: Urobilinogen Auto test strip Ql (U)on 09-02-2021 Urobilinogen Ql (U) Normal mg/dl Normal [facility] Work Phone: Culture, urine Bacteria identified Cx Nom (U) Presumptive E. coli [facility] Work Phone: VISUAL FIELD 24-2 OU (BOTH E YES) [facility] Vital Signs Date Time Vital Sign Value Performing Clinician Facility 02-03-2025 08:15-0400 Body temperature 97.3 [degF] Dr. Chema Perry MD Work Phone: [facility] 02-03-2025 08:15-0400 Diastolic blood pressure 62 mm[Hg] Dr. Chema Perry MD Work Phone: [facility] 02-03-2025 08:15-0400 Heart rate 77 /min Dr. Chema Perry MD Work Phone: [facility] 02-03-2025 08:15-0400 Respiratory rate 16 /min Dr. Chema Perry MD Work Phone: [facility] 02-03-2025 08:15-0400 SaO2% (BldA) [Mass fraction] 98 % Dr. Chema Perry MD Work Phone: [facility] 02-03-2025 08:15-0400 Systolic blood pressure 101 mm[Hg] Dr. Chema Perry MD Work Phone: [facility] 02-03-2025 04:07-0400 Body height 139.[address] Chema Perry MD Work Phone: [facility] 02-03-2025 04:07-0400 Body mass index (BMI) [Ratio] 28.8 kg/m2 Dr. Chema Perry MD Work Phone: [facility] 02-03-2025 04:07-0400 Body weight 56.[address] Chema Perry MD Work Phone: [facility] 12-23-2024 14:30-0400 Diastolic blood pressure 56 mm[Hg] Laisha Lizarraga APRN.ADMINISTRATIVE [employer]LES Work Phone: [facility] 12-23-2024 14:30-0400 Heart rate 70 /min Laisha Lizarraga APRN.[employer]ISTR[employer]IVE [employer] Work Phone: [facility] 12-23-2024 14:30-0400 Systolic blood pressure 121 mm[Hg] Laisha Lizarraga APRN.[employer]IST[employer]IVE [employer] Work Phone: [facility] 12-20-2024 13:53-0400 Body mass index (BMI) [Ratio] 23.24 kg/m2 Sourav Marcial MD Work Phone: [facility] 12-20-2024 13:53-0400 Body weight 45.36 kg Sourav Marcial MD Work Phone: [facility] 12-20-2024 13:53-0400 Diastolic blood pressure 56 mm[Hg] Sourav Marcial MD Work Phone: [facility] 12-20-2024 13:53-0400 Heart rate 72 /min Sourav Marcial MD Work Phone: [facility] 12-20-2024 13:53-0400 Systolic blood pressure 108 mm[Hg] Sourav Marcial MD Work Phone: [facility] 12-19-2024 14:46-0400 Body mass index (BMI) [Ratio] 23.57 kg/m2 Krislyn Aberegg PA Work Phone: [facility] 12-19-2024 14:46-0400 Body temperature 98.8 [degF] Krislyn Aberegg PA Work Phone: [facility] 12-19-2024 14:46-0400 Body weight 46 kg Krislyn Aberegg PA Work Phone: [facility] 12-19-2024 14:46-0400 Diastolic blood pressure 71 mm[Hg] Krislyn Aberegg PA Work Phone: [facility] 12-19-2024 14:46-0400 Heart rate 71 /min Krislyn Aberegg PA Work Phone: [facility] 12-19-2024 14:46-0400 Respiratory rate 16 /min Krislyn Aberegg PA Work Phone: [facility] 12-19-2024 14:46-0400 SaO2% (BldA) [Mass fraction] 94 % Krislyn Aberegg PA Work Phone: [facility] 12-19-2024 14:46-0400 Systolic blood pressure 120 mm[Hg] Krislyn Aberegg PA Work Phone: [facility] 12-03-2024 11:29-0400 Body height 139.7 cm Anila De Paz MD Work Phone: [facility] 12-03-2024 11:29-0400 Body mass index (BMI) [Ratio] 24.03 kg/m2 Anila De Paz MD Work Phone: [facility] 12-03-2024 11:29-0400 Body weight 46.9 kg Anila De Paz MD Work Phone: [facility] 12-03-2024 11:29-0400 Diastolic blood pressure 48 mm[Hg] Anila De Paz MD Work Phone: [facility] 12-03-2024 11:29-0400 Heart rate 60 /min Anila De Paz MD Work Phone: [facility] 12-03-2024 11:29-0400 Systolic blood pressure 106 mm[Hg] Anila De Paz MD Work Phone: [facility] 11-03-2024 15:32-0400 Body mass index (BMI) [Ratio] 24.29 kg/m2 Denice Queener PA-C Work Phone: [facility] 11-03-2024 15:32-0400 Body weight 47.4 kg Denice Houstoner PA-C Work Phone: [facility] 11-03-2024 15:32-0400 Diastolic blood pressure 73 mm[Hg] Denice Houstoner PA-C Work Phone: [facility] 11-03-2024 15:32-0400 Heart rate 68 /min Denice Houstoner PA-C Work Phone: [facility] 11-03-2024 15:32-0400 SaO2% (BldA) [Mass fraction] 90 % Denice Houstoner PA-C Work Phone: [facility] 11-03-2024 15:32-0400 Systolic blood pressure 125 mm[Hg] Denice Houstoner PA-C Work Phone: [facility] 10-29-2024 13:27-0400 Body height 139.7 cm Anila De Paz MD Work Phone: [facility] 10-29-2024 13:27-0400 Body mass index (BMI) [Ratio] 24.29 kg/m2 Anila De Paz MD Work Phone: [facility] 10-29-2024 13:27-0400 Body weight 47.4 kg Anila De Paz MD Work Phone: [facility] 10-29-2024 13:27-0400 Diastolic blood pressure 51 mm[Hg] Anila De Paz MD Work Phone: [facility] 10-29-2024 13:27-0400 Heart rate 77 /min Anila De Paz MD Work Phone: [facility] 10-29-2024 13:27-0400 Systolic blood pressure 93 mm[Hg] Anila De Paz MD Work Phone: [facility] 10-22-2024 08:26-0500 Body mass index (BMI) [Ratio] 23.9 kg/m2 Dr. Chema Perry MD Work Phone: [facility] 10-22-2024 08:26-0500 Body temperature 97.4 [degF] Dr. Chema Perry MD Work Phone: [facility] 10-22-2024 08:26-0500 Body weight 46.[address] Chema Perry MD Work Phone: [facility] 10-22-2024 08:26-0500 Diastolic blood pressure 79 mm[Hg] Dr. Chema Perry MD Work Phone: [facility] 10-22-2024 08:26-0500 Heart rate 72 /min Dr. Chema Perry MD Work Phone: [facility] 10-22-2024 08:26-0500 Respiratory rate 18 /min Dr. Chema Perry MD Work Phone: [facility] 10-22-2024 08:26-0500 SaO2% (BldA) [Mass fraction] 93 % Dr. Chema Perry MD Work Phone: [facility] 10-22-2024 08:26-0500 Systolic blood pressure 125 mm[Hg] Dr. Chema Perry MD Work Phone: [facility] 10-14-2024 13:18-0500 Body height 139.[address] Chema Perry MD Work Phone: [facility] 10-14-2024 13:18-0500 Body mass index (BMI) [Ratio] 24.4 kg/m2 Dr. Chema Perry MD Work Phone: [facility] 10-14-2024 13:18-0500 Body temperature 98.4 [degF] Dr. Chema Perry MD Work Phone: [facility] 10-14-2024 13:18-0500 Body weight 47.[address] Chema Perry MD Work Phone: [facility] 10-14-2024 13:18-0500 Diastolic blood pressure 79 mm[Hg] Dr. Chema Perry MD Work Phone: [facility] 10-14-2024 13:18-0500 Heart rate 78 /min Dr. Chema Perry MD Work Phone: [facility] 10-14-2024 13:18-0500 Respiratory rate 16 /min Dr. Chema Perry MD Work Phone: [facility] 10-14-2024 13:18-0500 SaO2% (BldA) [Mass fraction] 90 % Dr. Chema Perry MD Work Phone: [facility] 10-14-2024 13:18-0500 Systolic blood pressure 113 mm[Hg] Dr. Chema Perry MD Work Phone: [facility] 10-13-2024 13:08-0500 Body height 139.7 cm Laisha Lizarraga APRN.ADMINISTRATIVE [employer] Work Phone: [facility] 10-13-2024 13:08-0500 Body mass index (BMI) [Ratio] 23.47 kg/m2 Laisha Lizarraga APRN.[employer]MINISTR[employer] Work Phone: [facility] 10-13-2024 13:08-0500 Body weight 45.81 kg Laisha Lizarraga APRN.[employer] Work Phone: [facility] 10-13-2024 13:08-0500 Diastolic blood pressure 43 mm[Hg] Laisha Lizarraga APRN.[employer] Work Phone: [facility] 10-13-2024 13:08-0500 Heart rate 73 /min Laisha Lizarraga APRN.[employer] Work Phone: [facility] 10-13-2024 13:08-0500 Systolic blood pressure 81 mm[Hg] Laisha Lizarraga APRN.[employer] Work Phone: [facility] 10-08-2024 10:12-0500 Body height 142.2 cm Anila De Paz MD Work Phone: [facility] 10-08-2024 10:12-0500 Body mass index (BMI) [Ratio] 23.19 kg/m2 Anila De Paz MD Work Phone: [facility] 10-08-2024 10:12-0500 Body temperature 98.2 [degF] Anila De Paz MD Work Phone: [facility] 10-08-2024 10:12-0500 Body weight 46.9 kg Anila De Paz MD Work Phone: [facility] 10-08-2024 10:12-0500 Diastolic blood pressure 64 mm[Hg] Anila De Paz MD Work Phone: [facility] 10-08-2024 10:12-0500 Heart rate 68 /min Anila De Paz MD Work Phone: [facility] 10-08-2024 10:12-0500 Systolic blood pressure 137 mm[Hg] Anila De Paz MD Work Phone: [facility] 09-18-2024 10:18-0500 Body temperature 97.7 [degF] Dr. Chema Perry MD Work Phone: [facility] 09-18-2024 10:18-0500 Diastolic blood pressure 74 mm[Hg] Dr. Chema Perry MD Work Phone: [facility] 09-18-2024 10:18-0500 Heart rate 78 /min Dr. Chema Perry MD Work Phone: [facility] 09-18-2024 10:18-0500 Respiratory rate 18 /min Dr. Chema Perry MD Work Phone: [facility] 09-18-2024 10:18-0500 SaO2% (BldA) [Mass fraction] 98 % Dr. Chema Perry MD Work Phone: [facility] 09-18-2024 10:18-0500 Systolic blood pressure 154 mm[Hg] Dr. Chema Perry MD Work Phone: [facility] 09-18-2024 08:38-0500 Body mass index (BMI) [Ratio] 25.7 kg/m2 Dr. Chema Perry MD Work Phone: [facility] 09-18-2024 08:38-0500 Body weight 50.[address] Chema Perry MD Work Phone: [facility] 09-14-2024 13:49-0500 Body height 139.7 cm Pacc 1 Work Phone: [facility] 09-14-2024 13:49-0500 Body mass index (BMI) [Ratio] 24.5 kg/m2 Pacc 1 Work Phone: [facility] 09-14-2024 13:49-0500 Body temperature 98.29 [degF] Pacc 1 Work Phone: [facility] 09-14-2024 13:49-0500 Body weight 47.81 kg Pacc 1 Work Phone: [facility] 09-14-2024 13:49-0500 Diastolic blood pressure 64 mm[Hg] Pacc 1 Work Phone: [facility] 09-14-2024 13:49-0500 Heart rate 71 /min Pacc 1 Work Phone: [facility] 09-14-2024 13:49-0500 Respiratory rate 12 /min Pacc 1 Work Phone: [facility] 09-14-2024 13:49-0500 SaO2% (BldA) [Mass fraction] 96 % Pacc 1 Work Phone: [facility] 09-14-2024 13:49-0500 Systolic blood pressure 124 mm[Hg] Pacc 1 Work Phone: [facility] 09-13-2024 15:50-0500 Diastolic blood pressure 74 mm[Hg] Alisa Haile MD Work Phone: [facility] 09-13-2024 15:50-0500 Heart rate 58 /min Alisa Haile MD Work Phone: [facility] 09-13-2024 15:50-0500 Respiratory rate 16 /min Alisa Haile MD Work Phone: [facility] 09-13-2024 15:50-0500 SaO2% (BldA) [Mass fraction] 96 % Alisa Haile MD Work Phone: [facility] 09-13-2024 15:50-0500 Systolic blood pressure 159 mm[Hg] Alisa Haile MD Work Phone: [facility] 09-13-2024 14:20-0500 Body temperature 97.9 [degF] Alisa Haile MD Work Phone: [facility] 09-03-2024 14:23-0500 Body height 142.2 cm Anila De Paz MD Work Phone: [facility] 09-03-2024 14:23-0500 Body mass index (BMI) [Ratio] 22.95 kg/m2 Anila De Paz MD Work Phone: [facility] 09-03-2024 14:23-0500 Body weight 46.4 kg Anila De Paz MD Work Phone: [facility] 09-03-2024 14:23-0500 Diastolic blood pressure 57 mm[Hg] Anila De Paz MD Work Phone: [facility] 09-03-2024 14:23-0500 Heart rate 72 /min Anila De Paz MD Work Phone: [facility] 09-03-2024 14:23-0500 Systolic blood pressure 108 mm[Hg] Anila De Paz MD Work Phone: [facility] 08-06-2024 09:50-0500 Body height 142.2 cm Denice Jacobs PA-C Work Phone: [facility] 08-06-2024 09:50-0500 Body mass index (BMI) [Ratio] 22.69 kg/m2 Denice Jacobs PA-C Work Phone: [facility] 08-06-2024 09:50-0500 Body weight 45.9 kg Denice Jacobs PA-C Work Phone: [facility] 08-06-2024 09:50-0500 Diastolic blood pressure 63 mm[Hg] Denice Jacobs PA-C Work Phone: [facility] 08-06-2024 09:50-0500 Heart rate 79 /min Denice Jacobs PA-C Work Phone: [facility] 08-06-2024 09:50-0500 SaO2% (BldA) [Mass fraction] 94 % Denice Jacobs PA-C Work Phone: [facility] 08-06-2024 09:50-0500 Systolic blood pressure 116 mm[Hg] Denice Jacobs PA-C Work Phone: [facility] 08-03-2024 15:36-0500 Diastolic blood pressure 74 mm[Hg] Sourav Marcial MD Work Phone: [facility] 08-03-2024 15:36-0500 Heart rate 75 /min Sourav Marcial MD Work Phone: [facility] 08-03-2024 15:36-0500 Systolic blood pressure 148 mm[Hg] Sourav Marcial MD Work Phone: [facility] 07-21-2024 17:24-0500 Body temperature 96.8 [degF] Eliazar Brown MD Work Phone: [facility] 07-21-2024 17:24-0500 Diastolic blood pressure 69 mm[Hg] Eliazar Brown MD Work Phone: [facility] 07-21-2024 17:24-0500 Heart rate 73 /min Eliazar Brown MD Work Phone: [facility] 07-21-2024 17:24-0500 Respiratory rate 16 /min Eliazar Brown MD Work Phone: [facility] 07-21-2024 17:24-0500 SaO2% (BldA) [Mass fraction] 92 % Eliazar Brown MD Work Phone: [facility] 07-21-2024 17:24-0500 Systolic blood pressure 132 mm[Hg] Eliazar Brown MD Work Phone: [facility] 07-21-2024 16:35-0500 Body height 142.2 cm Eliazar Brown MD Work Phone: [facility] 07-21-2024 16:35-0500 Body mass index (BMI) [Ratio] 21.97 kg/m2 Eliazar Brown MD Work Phone: [facility] 07-21-2024 16:35-0500 Body weight 44.45 kg Eliazar Brown MD Work Phone: [facility] 07-16-2024 14:35-0500 Body mass index (BMI) [Ratio] 19.79 kg/m2 Pacc 1 Work Phone: [facility] 07-16-2024 14:35-0500 Body weight 44.45 kg Pacc 1 Work Phone: [facility] 07-16-2024 14:35-0500 Diastolic blood pressure 81 mm[Hg] Pacc 1 Work Phone: [facility] 07-16-2024 14:35-0500 Heart rate 62 /min Pacc 1 Work Phone: [facility] 07-16-2024 14:35-0500 SaO2% (BldA) [Mass fraction] 96 % Pacc 1 Work Phone: [facility] 07-16-2024 14:35-0500 Systolic blood pressure 161 mm[Hg] Pacc 1 Work Phone: [facility] 07-07-2024 11:48-0500 Body mass index (BMI) [Ratio] 22.6 kg/m2 Dr. Chema Perry MD Work Phone: [facility] 07-07-2024 11:48-0500 Body temperature 98.6 [degF] Dr. Chema Perry MD Work Phone: [facility] 07-07-2024 11:48-0500 Body weight 45.[address] Chema Perry MD Work Phone: [facility] 07-07-2024 11:48-0500 Diastolic blood pressure 83 mm[Hg] Dr. Chema Perry MD Work Phone: [facility] 07-07-2024 11:48-0500 Heart rate 58 /min Dr. Chema Perry MD Work Phone: [facility] 07-07-2024 11:48-0500 Respiratory rate 16 /min Dr. Chema Perry MD Work Phone: [facility] 07-07-2024 11:48-0500 SaO2% (BldA) [Mass fraction] 92 % Dr. Chema Perry MD Work Phone: [facility] 07-07-2024 11:48-0500 Systolic blood pressure 160 mm[Hg] Dr. Chema Perry MD Work Phone: [facility] 07-01-2024 13:25-0500 Body height 149.9 cm Laisha Lizarraga APRN.ADMINISTRATIVE [employer]LES Work Phone: [facility] 07-01-2024 13:25-0500 Body mass index (BMI) [Ratio] 19.87 kg/m2 Laisha Lizarraga APRN.ADMINISTRATIVE [employer] Work Phone: [facility] 07-01-2024 13:25-0500 Body weight 44.63 kg Laisha Lizarraga APRN.ADMINISTRATIVE [employer] Work Phone: [facility] 07-01-2024 13:25-0500 Diastolic blood pressure 64 mm[Hg] Laisha Lizarraga APRN.ADMINISTRATIVE [employer] Work Phone: [facility] 07-01-2024 13:25-0500 Heart rate 80 /min Laisha Lizarraga [employer] RO[employer].ADMINISTRATIVE [employer] Work Phone: [facility] 07-01-2024 13:25-0500 Systolic blood pressure 106 mm[Hg] Laisha Zia [employer].ADMINISTRATIVE [employer] Work Phone: [facility] 06-18-2024 12:44-0400 Body height 149.9 cm Anila De Paz MD Work Phone: [facility] 06-18-2024 12:44-0400 Body mass index (BMI) [Ratio] 20.47 kg/m2 Anila De Paz MD Work Phone: [facility] 06-18-2024 12:44-0400 Body weight 46 kg Anila De Paz MD Work Phone: [facility] 06-18-2024 12:44-0400 Diastolic blood pressure 56 mm[Hg] Anila De Paz MD Work Phone: [facility] 06-18-2024 12:44-0400 Heart rate 68 /min Anila De Paz MD Work Phone: [facility] 06-18-2024 12:44-0400 Systolic blood pressure 111 mm[Hg] Anila De Paz MD Work Phone: [facility] 05-17-2024 15:07-0400 Body mass index (BMI) [Ratio] 21.17 kg/m2 Susan Squires MD Work Phone: [facility] 05-17-2024 15:07-0400 Body temperature 97.2 [degF] Susan Squires MD Work Phone: [facility] 05-17-2024 15:07-0400 Body weight 47.54 kg Susan Squires MD Work Phone: [facility] 05-17-2024 15:07-0400 Diastolic blood pressure 72 mm[Hg] Susan Squires MD Work Phone: [facility] 05-17-2024 15:07-0400 Heart rate 78 /min Susan Squires MD Work Phone: [facility] 05-17-2024 15:07-0400 SaO2% (BldA) [Mass fraction] 92 % Susan Squires MD Work Phone: [facility] 05-17-2024 15:07-0400 Systolic blood pressure 138 mm[Hg] Susan Squires MD Work Phone: [facility] 03-25-2024 13:38-0400 Body height 149.9 cm Laisha Lizarraga APRN.ADMINISTRATIVE [employer] Work Phone: [facility] 03-25-2024 13:38-0400 Body mass index (BMI) [Ratio] 20.2 kg/m2 Laisha Lizarraga APRN.ADMINISTRATIVE [employer] Work Phone: [facility] 03-25-2024 13:38-0400 Body weight 45.36 kg Laisha Lizarraga APRN.ADMINISTRATIVE [employer] Work Phone: [facility] 03-25-2024 13:38-0400 Diastolic blood pressure 81 mm[Hg] Laisha Lizarraga APRN.ADMINISTRATIVE [employer] Work Phone: [facility] 03-25-2024 13:38-0400 Heart rate 68 /min Laisha Lizarraga APRN.ADMINISTRATIVE [employer] Work Phone: [facility] 03-25-2024 13:38-0400 Systolic blood pressure 137 mm[Hg] Laisha Lizarraga APRN.ADMINISTRATIVE [employer] Work Phone: [facility] 11-12-2023 14:58-0400 Body height 142.[address] Chema Perry Work Phone: [facility] 11-12-2023 14:58-0400 Body mass index (BMI) [Ratio] 22.4 kg/m2 Dr. Chema Perry Work Phone: [facility] 11-12-2023 14:58-0400 Body weight 45.[address] Chema Perry Work Phone: [facility] 11-12-2023 14:58-0400 Diastolic blood pressure 71 mm[Hg] Dr. Chema Perry Work Phone: [facility] 11-12-2023 14:58-0400 Heart rate 71 /min Dr. Chema Perry Work Phone: [facility] 11-12-2023 14:58-0400 Respiratory rate 18 /min Dr. Chema Perry Work Phone: [facility] 11-12-2023 14:58-0400 SaO2% (BldA) [Mass fraction] 97 % Dr. Chema Perry Work Phone: [facility] 11-12-2023 14:58-0400 Systolic blood pressure 114 mm[Hg] Dr. Chema Perry Work Phone: [facility] 10-16-2023 14:36-0500 Diastolic blood pressure 55 mm[Hg] Laisha Lizarraga APRN.ADMINISTRATIVE [employer] Work Phone: [facility] 10-16-2023 14:36-0500 Heart rate 79 /min Laisha Lizarraga APRN.ADMINISTRATIVE [employer] Work Phone: [facility] 10-16-2023 14:36-0500 Systolic blood pressure 107 mm[Hg] Laisha Lizarraga APRN.ADMINISTRATIVE [employer] Work Phone: [facility] 10-08-2023 14:26-0500 Body height 142.[address] Chema Perry Work Phone: [facility] 10-08-2023 14:26-0500 Body mass index (BMI) [Ratio] 22.1 kg/m2 Dr. Chema Perry Work Phone: [facility] 10-08-2023 14:26-0500 Body temperature 97.8 [degF] Dr. Chema Perry Work Phone: [facility] 10-08-2023 14:26-0500 Body weight 44.[address] Chema Perry Work Phone: [facility] 10-08-2023 14:26-0500 Diastolic blood pressure 75 mm[Hg] Dr. Chema Perry Work Phone: [facility] 10-08-2023 14:26-0500 Heart rate 73 /min Dr. Chema Perry Work Phone: [facility] 10-08-2023 14:26-0500 Respiratory rate 16 /min Dr. Chema Perry Work Phone: [facility] 10-08-2023 14:26-0500 SaO2% (BldA) [Mass fraction] 96 % Dr. Chema Perry Work Phone: [facility] 10-08-2023 14:26-0500 Systolic blood pressure 127 mm[Hg] Dr. Chema Perry Work Phone: [facility] 09-24-2023 09:59-0500 Body mass index (BMI) [Ratio] 23.1 kg/m2 Dr. Chema Perry Work Phone: [facility] 09-24-2023 09:59-0500 Body temperature 97.3 [degF] Dr. Chema Perry Work Phone: [facility] 09-24-2023 09:59-0500 Body weight 46.[address] Chema Perry Work Phone: [facility] 09-24-2023 09:59-0500 Diastolic blood pressure 76 mm[Hg] Dr. Chema Perry Work Phone: [facility] 09-24-2023 09:59-0500 Heart rate 77 /min Dr. Chema Perry Work Phone: [facility] 09-24-2023 09:59-0500 Respiratory rate 16 /min Dr. Chema Perry Work Phone: [facility] 09-24-2023 09:59-0500 SaO2% (BldA) [Mass fraction] 93 % Dr. Chema Perry Work Phone: [facility] 09-24-2023 09:59-0500 Systolic blood pressure 126 mm[Hg] Dr. Chema Perry Work Phone: [facility] 08-13-2023 15:36-0500 Body mass index (BMI) [Ratio] 23.6 kg/m2 Dr. Chema Perry Work Phone: [facility] 08-13-2023 15:36-0500 Body temperature 96.4 [degF] Dr. Chema Perry Work Phone: [facility] 08-13-2023 15:36-0500 Body weight 47.[address] Chema Perry Work Phone: [facility] 08-13-2023 15:36-0500 Diastolic blood pressure 83 mm[Hg] Dr. Chema Perry Work Phone: [facility] 08-13-2023 15:36-0500 Heart rate 71 /min Dr. Chema Perry Work Phone: [facility] 08-13-2023 15:36-0500 Respiratory rate 16 /min Dr. Chema Perry Work Phone: [facility] 08-13-2023 15:36-0500 SaO2% (BldA) [Mass fraction] 90 % Dr. Chema Perry Work Phone: [facility] 08-13-2023 15:36-0500 Systolic blood pressure 127 mm[Hg] Dr. Chema Perry Work Phone: [facility] 06-16-2023 13:40-0400 Body weight 48.08 kg Laisha Lizarraga APRN.ADMINISTRATIVE [employer] Work Phone: [facility] 06-16-2023 13:40-0400 Diastolic blood pressure 72 mm[Hg] Laisha Lizarraga APRN.CNP Work Phone: [facility] 06-16-2023 13:40-0400 Heart rate 81 /min Laisha Zia BOTELLO.ADMINISTRATIVE [employer]ITLES Work Phone: [facility] 06-16-2023 13:40-0400 Systolic blood pressure 118 mm[Hg] Laisha Zia ROSASADMINISTRATIVE JOB TITLES Work Phone: [facility] 05-15-2023 14:11-0400 Body height 142.[address] Chema Perry Work Phone: [facility] 05-12-2023 11:40-0400 Body mass index (BMI) [Ratio] 24.4 kg/m2 Dr. Chema Perry Work Phone: [facility] 05-12-2023 11:40-0400 Body weight 49.[address] Chema Perry Work Phone: [facility] 05-12-2023 11:40-0400 Diastolic blood pressure 72 mm[Hg] Dr. Chema Perry Work Phone: [facility] 05-12-2023 11:40-0400 Heart rate 73 /min Dr. Chema Perry Work Phone: [facility] 05-12-2023 11:40-0400 Respiratory rate 18 /min Dr. Chema Perry Work Phone: [facility] 05-12-2023 11:40-0400 SaO2% (BldA) [Mass fraction] 96 % Dr. Chema Perry Work Phone: [facility] 05-12-2023 11:40-0400 Systolic blood pressure 111 mm[Hg] Dr. Chema Perry Work Phone: [facility] 04-07-2023 13:32-0400 Body height 142.[address] hCema Perry Work Phone: [facility] 04-07-2023 13:32-0400 Body mass index (BMI) [Ratio] 23.2 kg/m2 Dr. Chema Perry Work Phone: [facility] 04-07-2023 13:32-0400 Body temperature 96.9 [degF] Dr. Chema Perry Work Phone: [facility] 04-07-2023 13:32-0400 Body weight 46.[address] Chema Perry Work Phone: [facility] 04-07-2023 13:32-0400 Diastolic blood pressure 88 mm[Hg] Dr. Chema Perry Work Phone: [facility] 04-07-2023 13:32-0400 Heart rate 79 /min Dr. Chema Perry Work Phone: [facility] 04-07-2023 13:32-0400 Respiratory rate 18 /min Dr. Chema Perry Work Phone: [facility] 04-07-2023 13:32-0400 SaO2% (BldA) [Mass fraction] 95 % Dr. Chema Perry Work Phone: [facility] 04-07-2023 13:32-0400 Systolic blood pressure 142 mm[Hg] Dr. Chema Perry Work Phone: [facility] 04-02-2023 04:28-0400 Body height 142.[address] Chema Perry Work Phone: [facility] 04-02-2023 04:28-0400 Body mass index (BMI) [Ratio] 21.2 kg/m2 Dr. Chema Perry Work Phone: [facility] 04-02-2023 04:28-0400 Body temperature 98.3 [degF] Dr. Chema Perry Work Phone: [facility] 04-02-2023 04:28-0400 Body weight 42.[address] Chema Perry Work Phone: [facility] 04-02-2023 04:28-0400 Diastolic blood pressure 98 mm[Hg] Dr. Chema Perry Work Phone: [facility] 04-02-2023 04:28-0400 Heart rate 79 /min Dr. Chema Perry Work Phone: [facility] 04-02-2023 04:28-0400 Respiratory rate 15 /min Dr. Chema Perry Work Phone: [facility] 04-02-2023 04:28-0400 SaO2% (BldA) [Mass fraction] 99 % Dr. Chema Perry Work Phone: [facility] 04-02-2023 04:28-0400 Systolic blood pressure 184 mm[Hg] Dr. Chema Perry Work Phone: [facility] 03-24-2023 11:37-0400 Body mass index (BMI) [Ratio] 25.1 kg/m2 Dr. Chema Perry Work Phone: [facility] 03-24-2023 11:37-0400 Body temperature 98.1 [degF] Dr. Chema Perry Work Phone: [facility] 03-24-2023 11:37-0400 Body weight 50.[address] Chema Perry Work Phone: [facility] 03-24-2023 11:37-0400 Diastolic blood pressure 78 mm[Hg] Dr. Chema Perry Work Phone: [facility] 03-24-2023 11:37-0400 Heart rate 74 /min Dr. Chema Perry Work Phone: [facility] 03-24-2023 11:37-0400 Respiratory rate 12 /min Dr. Chema Perry Work Phone: [facility] 03-24-2023 11:37-0400 SaO2% (BldA) [Mass fraction] 93 % Dr. Chema Perry Work Phone: [facility] 03-24-2023 11:37-0400 Systolic blood pressure 147 mm[Hg] Dr. Chema Perry Work Phone: [facility] 02-12-2023 14:09-0400 Body height 149.[address] Chema Perry Work Phone: [facility] 02-12-2023 14:09-0400 Body mass index (BMI) [Ratio] 22.1 kg/m2 Dr. Chema Perry Work Phone: [facility] 02-12-2023 14:09-0400 Body temperature 98.2 [degF] Dr. Chema Perry Work Phone: [facility] 02-12-2023 14:09-0400 Body weight 49.[address] Chema Perry Work Phone: [facility] 02-12-2023 14:09-0400 Diastolic blood pressure 82 mm[Hg] Dr. Chema Perry Work Phone: [facility] 02-12-2023 14:09-0400 Heart rate 82 /min Dr. Chema Perry Work Phone: [facility] 02-12-2023 14:09-0400 Respiratory rate 16 /min Dr. Chema Perry Work Phone: [facility] 02-12-2023 14:09-0400 SaO2% (BldA) [Mass fraction] 91 % Dr. Chema Perry Work Phone: [facility] 02-12-2023 14:09-0400 Systolic blood pressure 147 mm[Hg] Dr. Cehma Perry Work Phone: [facility] 01-29-2023 15:38-0400 Body height 149.[address] Chema Perry Work Phone: [facility] 01-29-2023 15:38-0400 Body mass index (BMI) [Ratio] 23.1 kg/m2 Dr. Chema Perry Work Phone: [facility] 01-29-2023 15:38-0400 Body temperature 97.4 [degF] Dr. Chema Perry Work Phone: [facility] 01-29-2023 15:38-0400 Body weight 51.[address] Chema Perry Work Phone: [facility] 01-29-2023 15:38-0400 Diastolic blood pressure 82 mm[Hg] Dr. Chema Perry Work Phone: [facility] 01-29-2023 15:38-0400 Heart rate 78 /min Dr. Chema Perry Work Phone: [facility] 01-29-2023 15:38-0400 Respiratory rate 16 /min Dr. Chema Perry Work Phone: [facility] 01-29-2023 15:38-0400 SaO2% (BldA) [Mass fraction] 92 % Dr. Chema Perry Work Phone: [facility] 01-29-2023 15:38-0400 Systolic blood pressure 130 mm[Hg] Dr. Chema Perry Work Phone: [facility] 01-20-2023 09:09-0400 Body temperature 98 [degF] Dr. Chema Perry Work Phone: [facility] 01-20-2023 09:09-0400 Diastolic blood pressure 66 mm[Hg] Dr. Chema Perry Work Phone: [facility] 01-20-2023 09:09-0400 Heart rate 70 /min Dr. Chema Perry Work Phone: [facility] 01-20-2023 09:09-0400 Respiratory rate 16 /min Dr. Chema Perry Work Phone: [facility] 01-20-2023 09:09-0400 SaO2% (BldA) [Mass fraction] 94 % Dr. Chema Perry Work Phone: [facility] 01-20-2023 09:09-0400 Systolic blood pressure 108 mm[Hg] Dr. Chema Perry Work Phone: [facility] 01-15-2023 13:53-0400 Body height 149.[address] Chema Perry Work Phone: [facility] 01-15-2023 13:53-0400 Body mass index (BMI) [Ratio] 23.1 kg/m2 Dr. Chema Perry Work Phone: [facility] 01-15-2023 13:53-0400 Body temperature 97.4 [degF] Dr. Chema Perry Work Phone: [facility] 01-15-2023 13:53-0400 Body weight 51.[address] Chema Perry Work Phone: [facility] 01-15-2023 13:53-0400 Diastolic blood pressure 74 mm[Hg] Dr. Chema Perry Work Phone: [facility] 01-15-2023 13:53-0400 Heart rate 90 /min Dr. Chema Perry Work Phone: [facility] 01-15-2023 13:53-0400 Respiratory rate 17 /min Dr. Chema Perry Work Phone: [facility] 01-15-2023 13:53-0400 SaO2% (BldA) [Mass fraction] 97 % Dr. Chema Perry Work Phone: [facility] 01-15-2023 13:53-0400 Systolic blood pressure 130 mm[Hg] Dr. Chema Perry Work Phone: [facility] 01-08-2023 11:45-0400 Body mass index (BMI) [Ratio] 22.6 kg/m2 Dr. Chema Perry Work Phone: [facility] 01-08-2023 11:45-0400 Body weight 50.[address] Chema Perry Work Phone: [facility] 01-08-2023 11:45-0400 Diastolic blood pressure 71 mm[Hg] Dr. Chema Perry Work Phone: [facility] 01-08-2023 11:45-0400 Heart rate 72 /min Dr. Chema Perry Work Phone: [facility] 01-08-2023 11:45-0400 Respiratory rate 16 /min Dr. Chema Perry Work Phone: [facility] 01-08-2023 11:45-0400 Systolic blood pressure 110 mm[Hg] Dr. Chema Perry Work Phone: [facility] 01-02-2023 14:30-0400 Body mass index (BMI) [Ratio] 22.8 kg/m2 Dr. Chema Perry Work Phone: [facility] 01-02-2023 14:30-0400 Body temperature 97.8 [degF] Dr. Chema Perry Work Phone: [facility] 01-02-2023 14:30-0400 Body weight 51.[address] Chema Perry Work Phone: [facility] 01-02-2023 14:30-0400 Diastolic blood pressure 74 mm[Hg] Dr. Chema Perry Work Phone: [facility] 01-02-2023 14:30-0400 Heart rate 82 /min Dr. Chema Perry Work Phone: [facility] 01-02-2023 14:30-0400 Respiratory rate 16 /min Dr. Chema Perry Work Phone: [facility] 01-02-2023 14:30-0400 SaO2% (BldA) [Mass fraction] 94 % Dr. Chema Perry Work Phone: [facility] 01-02-2023 14:30-0400 Systolic blood pressure 128 mm[Hg] Dr. Chema Perry Work Phone: [facility] 01-01-2023 11:15-0400 Body mass index (BMI) [Ratio] 22.2 kg/m2 Dr. Chema Perry Work Phone: [facility] 01-01-2023 11:15-0400 Body temperature 97.6 [degF] Dr. Chema Perry Work Phone: [facility] 01-01-2023 11:15-0400 Body weight 49.[address] Chema Perry Work Phone: [facility] 01-01-2023 11:15-0400 Diastolic blood pressure 77 mm[Hg] Dr. Chema Perry Work Phone: [facility] 01-01-2023 11:15-0400 Heart rate 80 /min Dr. Chema Perry Work Phone: [facility] 01-01-2023 11:15-0400 Respiratory rate 18 /min Dr. Chema Perry Work Phone: [facility] 01-01-2023 11:15-0400 SaO2% (BldA) [Mass fraction] 93 % Dr. Chema Perry Work Phone: [facility] 01-01-2023 11:15-0400 Systolic blood pressure 124 mm[Hg] Dr. Chema Perry Work Phone: [facility] 12-25-2022 14:04-0400 Body temperature 98.3 [degF] Dr. Chema Perry Work Phone: [facility] 12-25-2022 14:04-0400 Diastolic blood pressure 72 mm[Hg] Dr. Chema Perry Work Phone: [facility] 12-25-2022 14:04-0400 Heart rate 74 /min Dr. Chema Perry Work Phone: [facility] 12-25-2022 14:04-0400 Respiratory rate 17 /min Dr. Chema Perry Work Phone: [facility] 12-25-2022 14:04-0400 SaO2% (BldA) [Mass fraction] 91 % Dr. Chema Perry Work Phone: [facility] 12-25-2022 14:04-0400 Systolic blood pressure 116 mm[Hg] Dr. Chema Perry Work Phone: [facility] 11-23-2022 11:14-0400 Body height 149.[address] Chema Perry Work Phone: [facility] 11-23-2022 11:14-0400 Body mass index (BMI) [Ratio] 23 kg/m2 Dr. Chema Perry Work Phone: [facility] 11-23-2022 11:14-0400 Body temperature 97.8 [degF] Dr. Chema Perry Work Phone: [facility] 11-23-2022 11:14-0400 Body weight 51.[address] Chema Perry Work Phone: [facility] 11-13-2022 12:59-0400 Body weight 49.9 kg Laisha Lizarraga APRN.[employer]MINIST[employer]IVE [employer] Work Phone: [facility] 11-13-2022 12:59-0400 Diastolic blood pressure 69 mm[Hg] Laisha Lizarraga APRN.[employer]IST[employer]IVE [employer] Work Phone: [facility] 11-13-2022 12:59-0400 Heart rate 77 /min Laisha Lizarraga APRN.[employer]IVE [employer] Work Phone: [facility] 11-13-2022 12:59-0400 Systolic blood pressure 113 mm[Hg] Laisha Lizarraga APRN.[employer]MINIST[employer]IVE [employer] Work Phone: [facility] 10-23-2022 13:11-0500 Body temperature 98.5 [degF] Dr. Chema Perry Work Phone: [facility] 10-23-2022 13:11-0500 Diastolic blood pressure 78 mm[Hg] Dr. Chema Perry Work Phone: [facility] 10-23-2022 13:11-0500 Heart rate 76 /min Dr. Chema Perry Work Phone: [facility] 10-23-2022 13:11-0500 Respiratory rate 14 /min Dr. Chema Perry Work Phone: [facility] 10-23-2022 13:11-0500 SaO2% (BldA) [Mass fraction] 98 % Dr. Chema Perry Work Phone: [facility] 10-23-2022 13:11-0500 Systolic blood pressure 122 mm[Hg] Dr. Chema Perry Work Phone: [facility] 10-21-2022 13:08-0500 Body temperature 98.2 [degF] Dr. Chema Perry Work Phone: [facility] 10-21-2022 13:08-0500 Body weight 54.[address] Chema Perry Work Phone: [facility] 10-21-2022 13:08-0500 Diastolic blood pressure 74 mm[Hg] Dr. Chema Perry Work Phone: [facility] 10-21-2022 13:08-0500 Heart rate 87 /min Dr. Chema Perry Work Phone: [facility] 10-21-2022 13:08-0500 Respiratory rate 16 /min Dr. Chema Perry Work Phone: [facility] 10-21-2022 13:08-0500 SaO2% (BldA) [Mass fraction] 93 % Dr. Chema Perry Work Phone: [facility] 10-21-2022 13:08-0500 Systolic blood pressure 128 mm[Hg] Dr. Chema Perry Work Phone: [facility] 10-16-2022 17:21-0500 Body height 149.[address] Chema Perry Work Phone: [facility] 10-16-2022 17:21-0500 Body mass index (BMI) [Ratio] 24.1 kg/m2 Dr. Chema Perry Work Phone: [facility] 10-16-2022 17:21-0500 Body temperature 98.2 [degF] Dr. Chema Perry Work Phone: [facility] 10-16-2022 17:21-0500 Body weight 54.[address] Chema Perry Work Phone: [facility] 10-16-2022 17:21-0500 Diastolic blood pressure 92 mm[Hg] Dr. Chema Perry Work Phone: [facility] 10-16-2022 17:21-0500 Heart rate 81 /min Dr. Chema Perry Work Phone: [facility] 10-16-2022 17:21-0500 Respiratory rate 14 /min Dr. Chema Perry Work Phone: [facility] 10-16-2022 17:21-0500 SaO2% (BldA) [Mass fraction] 94 % Dr. Chema Perry Work Phone: [facility] 10-16-2022 17:21-0500 Systolic blood pressure 160 mm[Hg] Dr. Chema Perry Work Phone: [facility] 09-21-2022 10:53-0500 Body temperature 98.2 [degF] Dr. Chema Perry Work Phone: [facility] 09-21-2022 10:53-0500 Diastolic blood pressure 60 mm[Hg] Dr. Chema Perry Work Phone: [facility] 09-21-2022 10:53-0500 Heart rate 83 /min Dr. Chema Perry Work Phone: [facility] 09-21-2022 10:53-0500 Respiratory rate 14 /min Dr. Chema Perry Work Phone: [facility] 09-21-2022 10:53-0500 SaO2% (BldA) [Mass fraction] 95 % Dr. Chema Perry Work Phone: [facility] 09-21-2022 10:53-0500 Systolic blood pressure 104 mm[Hg] Dr. Chema Perry Work Phone: [facility] 07-24-2022 15:46-0500 Body temperature 96.8 [degF] Dr. Chema Perry Work Phone: [facility] 07-24-2022 15:46-0500 Body weight 56.[address] Chema Perry Work Phone: [facility] 07-24-2022 15:46-0500 Diastolic blood pressure 86 mm[Hg] Dr. Chema Perry Work Phone: [facility] 07-24-2022 15:46-0500 Heart rate 90 /min Dr. Chema Perry Work Phone: [facility] 07-24-2022 15:46-0500 Respiratory rate 16 /min Dr. Chema Perry Work Phone: [facility] 07-24-2022 15:46-0500 SaO2% (BldA) [Mass fraction] 91 % Dr. Chema Perry Work Phone: [facility] 07-24-2022 15:46-0500 Systolic blood pressure 134 mm[Hg] Dr. Chema Perry Work Phone: [facility] 07-22-2022 14:41-0500 Body height 149.[address] Arun Ramos Work Phone: [facility] 07-22-2022 14:41-0500 Body mass index (BMI) [Ratio] 25.2 kg/m2 Dr. Arun Ramos Work Phone: [facility] 07-22-2022 14:41-0500 Body temperature 98 [degF] Dr. Arun Ramos Work Phone: [facility] 07-22-2022 14:41-0500 Body weight 56.[address] Arun Ramos Work Phone: [facility] 07-22-2022 14:41-0500 Diastolic blood pressure 67 mm[Hg] Dr. Arun Raoms Work Phone: 4(001)765-166512 [place] [address] 07-22-2022 14:41-0500 Heart rate 90 /min Dr. Arun Ramos Work Phone: 8(812)552-034512 [place] [address] 07-22-2022 14:41-0500 Respiratory rate 18 /min Dr. Arun Ramos Work Phone: 6(753)590-765631 [address] 07-22-2022 14:41-0500 SaO2% (BldA) [Mass fraction] 95 % Dr. Arun Ramos Work Phone: 8(608)951-845812 [place] [address] 07-22-2022 14:41-0500 Systolic blood pressure 109 mm[Hg] Dr. Arun Ramos Work Phone: 8(080)328-221412 [place] [address] 07-13-2022 03:28-0500 Diastolic blood pressure 68 mm[Hg] Dr. Arun Ramos Work Phone: 3(900)286-645412 [place] [address] 07-13-2022 03:28-0500 Heart rate 78 /min Dr. Arun Ramos Work Phone: 5(097)051-860512 [place] [address] 07-13-2022 03:28-0500 Respiratory rate 16 /min Dr. Arun Ramos Work Phone: 0(604)475-291912 [place] [address] 07-13-2022 03:28-0500 SaO2% (BldA) [Mass fraction] 97 % Dr. Arun Ramos Work Phone: [facility] 07-13-2022 03:28-0500 Systolic blood pressure 135 mm[Hg] Dr. Arun Ramos Work Phone: 2(147)188-992212 [place] [address] 07-13-2022 00:21-0500 Body height 149.[address] Arun Ramos Work Phone: [facility] Work Phone: 07-13-2022 00:21-0500 Body mass index (BMI) [Ratio] 25.7 kg/m2 Dr. Arun Ramos Work Phone: [facility] 07-13-2022 00:21-0500 Body temperature 97.8 [degF] Dr. Arun Ramos Work Phone: [facility] 07-13-2022 00:21-0500 Body weight 57.[address] Arun Ramos Work Phone: 0(466)195-666512 [place] [address] 07-07-2022 09:10-0500 Body mass index (BMI) [Ratio] 24.4 kg/m2 Dr. Arun Ramos Work Phone: 2(773)268-264612 [place] [address] 07-07-2022 09:10-0500 Body temperature 99.2 [degF] Dr. Arun Ramos Work Phone: [facility] 07-07-2022 09:10-0500 Body weight 54.[address] Arun Ramos Work Phone: 1(261)974-127912 [place] [address] 07-07-2022 09:10-0500 Diastolic blood pressure 70 mm[Hg] Dr. Arun Ramos Work Phone: [facility] 07-07-2022 09:10-0500 Heart rate 81 /min Dr. Arun Ramos Work Phone: [facility] 07-07-2022 09:10-0500 Respiratory rate 16 /min Dr. Arun Ramos Work Phone: [facility] 07-07-2022 09:10-0500 SaO2% (BldA) [Mass fraction] 96 % Dr. Arun Ramos Work Phone: [facility] 07-07-2022 09:10-0500 Systolic blood pressure 118 mm[Hg] Dr. Arun Ramos Work Phone: [facility] 07-04-2022 13:35-0500 Body temperature 97.9 [degF] Dr. Arun Ramos Work Phone: 0(868)592-827112 [place] [address] 07-04-2022 13:35-0500 Body weight 56.[address] Arun Ramos Work Phone: 6(115)801-800212 [place] [address] 07-04-2022 13:35-0500 Diastolic blood pressure 81 mm[Hg] Dr. Arun Ramos Work Phone: 9(446)991-526311 [place] [address] 07-04-2022 13:35-0500 Heart rate 87 /min Dr. Arun Ramos Work Phone: 5(385)038-807611 [place] [address] 07-04-2022 13:35-0500 Respiratory rate 18 /min Dr. Arun Ramos Work Phone: 0(265)226-382111 [place] [address] 07-04-2022 13:35-0500 SaO2% (BldA) [Mass fraction] 90 % Dr. Arun Ramos Work Phone: 7(370)070-502811 [place] [address] 07-04-2022 13:35-0500 Systolic blood pressure 132 mm[Hg] Dr. Arun Ramos Work Phone: 3(015)998-217411 [place] [address] 06-25-2022 13:14-0500 Body mass index (BMI) [Ratio] 25.2 kg/m2 Dr. Arun Ramos Work Phone: 2(729)159-765611 [place] [address] 06-25-2022 13:14-0500 Body temperature 97.1 [degF] Dr. Arun Ramos Work Phone: 9(735)035-667411 [place] [address] 06-25-2022 13:14-0500 Body weight 56.[address] Arun Ramos Work Phone: 4(463)352-561811 [place] [address] 06-25-2022 13:14-0500 Diastolic blood pressure 70 mm[Hg] Dr. Arun Ramos Work Phone: 5(267)963-612411 [place] [address] 06-25-2022 13:14-0500 Heart rate 78 /min Dr. Arun Ramos Work Phone: 1(616)458-666711 [place] [address] 06-25-2022 13:14-0500 Respiratory rate 18 /min Dr. Arun Ramos Work Phone: 5(018)733-658411 [place] [address] 06-25-2022 13:14-0500 SaO2% (BldA) [Mass fraction] 94 % Dr. Arun Ramos Work Phone: [facility] 06-25-2022 13:14-0500 Systolic blood pressure 122 mm[Hg] Dr. Arun Ramos Work Phone: [facility] 06-07-2022 13:04-0400 Body mass index (BMI) [Ratio] 24.7 kg/m2 Dr. Arun Ramos Work Phone: [facility] 06-07-2022 13:04-0400 Body weight 55.[address] Arun Ramos Work Phone: 1(062)496-917612 [place] [address] 06-07-2022 13:04-0400 Diastolic blood pressure 70 mm[Hg] Dr. Arun Ramos Work Phone: 3(978)594-569412 [place] [address] 06-07-2022 13:04-0400 Heart rate 80 /min Dr. Arun Ramos Work Phone: [facility] 06-07-2022 13:04-0400 Respiratory rate 18 /min Dr. Arun Ramos Work Phone: [facility] 06-07-2022 13:04-0400 Systolic blood pressure 122 mm[Hg] Dr. Arun Ramos Work Phone: [facility] 05-13-2022 14:11-0400 Body temperature 98 [degF] Dr. Arun Ramos Work Phone: [facility] Work Phone: 05-13-2022 14:11-0400 Body weight 55.[address] Arun Ramos Work Phone: [facility] Work Phone: 05-13-2022 14:11-0400 Diastolic blood pressure 89 mm[Hg] Dr. Arun Ramos Work Phone: [facility] Work Phone: 05-13-2022 14:11-0400 Heart rate 87 /min Dr. Arun Ramos Work Phone: [facility] Work Phone: 05-13-2022 14:11-0400 Respiratory rate 16 /min Dr. Arun Ramos Work Phone: [facility] Work Phone: 05-13-2022 14:11-0400 SaO2% (BldA) [Mass fraction] 95 % Dr. Arun Ramos Work Phone: [facility] Work Phone: 05-13-2022 14:11-0400 Systolic blood pressure 149 mm[Hg] Dr. Arun Ramos Work Phone: [facility] Work Phone: 04-25-2022 11:37-0400 Body temperature 97 [degF] Dr. Arun Ramos Work Phone: [facility] Work Phone: 04-25-2022 11:37-0400 Body weight 56.[address] Arun Ramos Work Phone: [facility] Work Phone: 04-25-2022 11:37-0400 Diastolic blood pressure 77 mm[Hg] Dr. Arun Ramos Work Phone: [facility] Work Phone: 04-25-2022 11:37-0400 Heart rate 76 /min Dr. Arun Ramos Work Phone: [facility] Work Phone: 04-25-2022 11:37-0400 Respiratory rate 18 /min Dr. Arun Ramos Work Phone: [facility] Work Phone: 04-25-2022 11:37-0400 SaO2% (BldA) [Mass fraction] 90 % Dr. Arun Ramos Work Phone: [facility] Work Phone: 04-25-2022 11:37-0400 Systolic blood pressure 131 mm[Hg] Dr. Arun Ramos Work Phone: [facility] Work Phone: 04-11-2022 12:48-0400 Body weight 53.07 kg Laisha Zia BOTELL[employer]MINIST[employer]IVE [employer] Work Phone: [facility] 04-11-2022 12:48-0400 Diastolic blood pressure 77 mm[Hg] Laisha Lizarraga APRN.ADMINISTRATIVE [employer] Work Phone: [facility] 04-11-2022 12:48-0400 Heart rate 75 /min Laisha Zia [employer].ADMINISTR[employer]IVE [employer] Work Phone: [facility] 04-11-2022 12:48-0400 Systolic blood pressure 117 mm[Hg] Laisha Zia [employer].ADMINISTR[employer]IVE [employer] Work Phone: [facility] 03-27-2022 05:59-0400 Body mass index (BMI) [Ratio] 25.1 kg/m2 Dr. Arun Ramos Work Phone: [facility] Work Phone: 03-27-2022 05:59-0400 Body temperature 98.6 [degF] Dr. Arun Ramos Work Phone: [facility] Work Phone: 03-27-2022 05:59-0400 Body weight 56.[address] Arun Ramos Work Phone: [facility] Work Phone: 03-27-2022 05:59-0400 Diastolic blood pressure 68 mm[Hg] Dr. Arun Ramos Work Phone: [facility] Work Phone: 03-27-2022 05:59-0400 Heart rate 90 /min Dr. Arun Ramos Work Phone: [facility] Work Phone: 03-27-2022 05:59-0400 Respiratory rate 16 /min Dr. Arun Ramos Work Phone: [facility] Work Phone: 03-27-2022 05:59-0400 SaO2% (BldA) [Mass fraction] 92 % Dr. Arun Ramos Work Phone: [facility] Work Phone: 03-27-2022 05:59-0400 Systolic blood pressure 111 mm[Hg] Dr. Arun Ramos Work Phone: [facility] Work Phone: 03-21-2022 14:11-0400 Body mass index (BMI) [Ratio] 24.9 kg/m2 Dr. Arun Ramos Work Phone: [facility] Work Phone: 03-21-2022 14:11-0400 Body temperature 97.6 [degF] Dr. Arun Ramos Work Phone: [facility] Work Phone: 03-21-2022 14:11-0400 Body weight 56.[address] Arun Ramos Work Phone: [facility] Work Phone: 03-21-2022 14:11-0400 Diastolic blood pressure 82 mm[Hg] Dr. Arun Ramos Work Phone: [facility] Work Phone: 03-21-2022 14:11-0400 Heart rate 80 /min Dr. Arun Ramos Work Phone: [facility] Work Phone: 03-21-2022 14:11-0400 Respiratory rate 16 /min Dr. Arun Ramos Work Phone: [facility] Work Phone: 03-21-2022 14:11-0400 SaO2% (BldA) [Mass fraction] 98 % Dr. Arun Ramos Work Phone: [facility] Work Phone: 03-21-2022 14:11-0400 Systolic blood pressure 142 mm[Hg] Dr. Arun Ramos Work Phone: [facility] Work Phone: 03-15-2022 19:42-0400 Body height 149.[address] Arun Ramos Work Phone: [facility] Work Phone: 03-15-2022 19:42-0400 Body mass index (BMI) [Ratio] 26.4 kg/m2 Dr. Arun Ramos Work Phone: [facility] Work Phone: 03-15-2022 19:42-0400 Body temperature 98 [degF] Dr. Arun Ramos Work Phone: [facility] Work Phone: 03-15-2022 19:42-0400 Body weight 59.[address] Arun Ramos Work Phone: [facility] Work Phone: 03-15-2022 19:42-0400 Diastolic blood pressure 83 mm[Hg] Dr. Arun Ramos Work Phone: [facility] Work Phone: 03-15-2022 19:42-0400 Heart rate 84 /min Dr. Arun Ramos Work Phone: [facility] Work Phone: 03-15-2022 19:42-0400 Respiratory rate 18 /min Dr. Arun Ramos Work Phone: [facility] Work Phone: 03-15-2022 19:42-0400 SaO2% (BldA) [Mass fraction] 93 % Dr. Arun Ramos Work Phone: [facility] Work Phone: 03-15-2022 19:42-0400 Systolic blood pressure 144 mm[Hg] Dr. Arun Ramos Work Phone: [facility] Work Phone: 02-15-2022 17:00-0400 Respiratory rate 14 /min Dr. Arun Ramos Work Phone: [facility] Work Phone: 02-15-2022 17:00-0400 SaO2% (BldA) [Mass fraction] 99 % Dr. Arun Ramos Work Phone: [facility] Work Phone: 02-15-2022 15:00-0400 Diastolic blood pressure 81 mm[Hg] Dr. Arun Ramos Work Phone: [facility] Work Phone: 02-15-2022 15:00-0400 Heart rate 67 /min Dr. Arun Ramos Work Phone: [facility] Work Phone: 02-15-2022 15:00-0400 Systolic blood pressure 122 mm[Hg] Dr. Arun Ramos Work Phone: [facility] Work Phone: 02-15-2022 09:48-0400 Body height 149.[address] Arun Ramos Work Phone: [facility] Work Phone: 02-15-2022 09:48-0400 Body mass index (BMI) [Ratio] 24.9 kg/m2 Dr. Arun Ramos Work Phone: [facility] Work Phone: 02-15-2022 09:48-0400 Body temperature 98.3 [degF] Dr. Arun Ramos Work Phone: [facility] Work Phone: 02-15-2022 09:48-0400 Body weight [address] Arun Ramos Work Phone: [facility] Work Phone: 01-23-2022 10:42-0400 Body weight 53.98 kg Mitchel Muse MD Work Phone: [facility] 01-23-2022 10:42-0400 Diastolic blood pressure 72 mm[Hg] Mitchel Muse MD Work Phone: [facility] 01-23-2022 10:42-0400 Heart rate 82 /min Mitchel Muse MD Work Phone: [facility] 01-23-2022 10:42-0400 Systolic blood pressure 114 mm[Hg] Mitchel Muse MD Work Phone: [facility] 01-10-2022 13:19-0400 Body height 152.[address] Arun Ramos Work Phone: [facility] Work Phone: 01-10-2022 13:19-0400 Body mass index (BMI) [Ratio] 23.4 kg/m2 Dr. Arun Ramos Work Phone: [facility] Work Phone: 01-10-2022 13:19-0400 Body temperature 97.4 [degF] Dr. Arun Ramos Work Phone: [facility] Work Phone: 01-10-2022 13:19-0400 Body weight 54.[address] Arun Ramos Work Phone: [facility] Work Phone: 01-10-2022 13:19-0400 Diastolic blood pressure 76 mm[Hg] Dr. Arun Ramos Work Phone: [facility] Work Phone: 01-10-2022 13:19-0400 Heart rate 84 /min Dr. Arun Ramos Work Phone: [facility] Work Phone: 01-10-2022 13:19-0400 Respiratory rate 16 /min Dr. Arun Ramos Work Phone: [facility] Work Phone: 01-10-2022 13:19-0400 SaO2% (BldA) [Mass fraction] 92 % Dr. Arun Ramos Work Phone: [facility] Work Phone: 01-10-2022 13:19-0400 Systolic blood pressure 115 mm[Hg] Dr. Arun Ramos Work Phone: [facility] Work Phone: 11-13-2021 11:13-0400 Body weight 56.25 kg Laisha Lizarraga APRN.[employer]MINIST[employer]IVE [employer] Work Phone: [facility] 11-13-2021 11:13-0400 Diastolic blood pressure 68 mm[Hg] Laisha Lizarraga APRN.ADMINIST[employer]IVE [employer] Work Phone: [facility] 11-13-2021 11:13-0400 Heart rate 83 /min Laisha Lizarraga APRN.ADMINIST[employer]IVE [employer] Work Phone: [facility] 11-13-2021 11:13-0400 Systolic blood pressure 125 mm[Hg] Laisha Lizarraga APRN.ADMINISTRATIVE JOB TITLES Work Phone: [facility] 11-07-2021 14:12-0400 Body height 149.[address] Arun Ramos Work Phone: [facility] Work Phone: 11-07-2021 14:12-0400 Body mass index (BMI) [Ratio] 23.2 kg/m2 Dr. Arun Ramos Work Phone: [facility] Work Phone: 11-07-2021 14:12-0400 Body temperature 97.2 [degF] Dr. Arun Ramos Work Phone: [facility] Work Phone: 11-07-2021 14:12-0400 Body weight 52.[address] Arun Ramos Work Phone: [facility] Work Phone: 11-07-2021 14:12-0400 Diastolic blood pressure 81 mm[Hg] Dr. Arun Ramos Work Phone: [facility] Work Phone: 11-07-2021 14:12-0400 Heart rate 100 /min Dr. Arun Ramos Work Phone: [facility] Work Phone: 11-07-2021 14:12-0400 Respiratory rate 19 /min Dr. Arun Ramos Work Phone: [facility] Work Phone: 11-07-2021 14:12-0400 SaO2% (BldA) [Mass fraction] 91 % Dr. Arun Ramos Work Phone: [facility] Work Phone: 11-07-2021 14:12-0400 Systolic blood pressure 110 mm[Hg] Dr. Arun Ramos Work Phone: [facility] Work Phone: 10-08-2021 19:03-0500 Body temperature 97.7 [degF] Dr. Arun Ramos Work Phone: [facility] Work Phone: 10-08-2021 19:03-0500 Diastolic blood pressure 88 mm[Hg] Dr. Arun Ramos Work Phone: [facility] Work Phone: 10-08-2021 19:03-0500 Heart rate 81 /min Dr. Arun Ramos Work Phone: [facility] Work Phone: 10-08-2021 19:03-0500 Respiratory rate 20 /min Dr. Arun Ramos Work Phone: [facility] Work Phone: 10-08-2021 19:03-0500 SaO2% (BldA) [Mass fraction] 92 % Dr. Arun Ramos Work Phone: [facility] Work Phone: 10-08-2021 19:03-0500 Systolic blood pressure 134 mm[Hg] Dr. Arun Ramos Work Phone: [facility] Work Phone: 10-06-2021 15:46-0500 Body weight 55.[address] Arun Ramos Work Phone: [facility] Work Phone: 10-05-2021 17:32-0500 Body mass index (BMI) [Ratio] 24.8 kg/m2 Dr. Arun Ramos Work Phone: [facility] Work Phone: 10-04-2021 10:45-0500 Body temperature 97.3 [degF] Dr. Arun Ramos Work Phone: [facility] Work Phone: 10-04-2021 10:45-0500 Diastolic blood pressure 80 mm[Hg] Dr. Arun Ramos Work Phone: [facility] Work Phone: 10-04-2021 10:45-0500 Heart rate 90 /min Dr. Arun Ramos Work Phone: [facility] Work Phone: 10-04-2021 10:45-0500 Respiratory rate 20 /min Dr. Arun Ramos Work Phone: [facility] Work Phone: 10-04-2021 10:45-0500 SaO2% (BldA) [Mass fraction] 92 % Dr. Arun Ramos Work Phone: [facility] Work Phone: 10-04-2021 10:45-0500 Systolic blood pressure 134 mm[Hg] Dr. Arun Ramos Work Phone: [facility] Work Phone: 10-02-2021 09:01-0500 Body weight 57.[address] Arun Ramos Work Phone: [facility] Work Phone: 09-27-2021 19:53-0500 Inhaled oxygen concentration 21 % Dr. Arun Ramos Work Phone: [facility] Work Phone: 09-04-2021 12:15-0500 Body mass index (BMI) [Ratio] 27 kg/m2 Dr. Arun Ramos Work Phone: [facility] Work Phone: 09-04-2021 07:30-0500 Body temperature 97.8 [degF] Dr. Arun Ramos Work Phone: [facility] Work Phone: 09-04-2021 07:30-0500 Diastolic blood pressure 85 mm[Hg] Dr. Arun Ramos Work Phone: [facility] Work Phone: 09-04-2021 07:30-0500 Heart rate 79 /min Dr. Arun Ramos Work Phone: [facility] Work Phone: 09-04-2021 07:30-0500 Respiratory rate 18 /min Dr. Arun Ramos Work Phone: [facility] Work Phone: 09-04-2021 07:30-0500 SaO2% (BldA) [Mass fraction] 94 % Dr. Arun Ramos Work Phone: [facility] Work Phone: 09-04-2021 07:30-0500 Systolic blood pressure 154 mm[Hg] Dr. Arun Ramos Work Phone: [facility] Work Phone: 09-02-2021 18:34-0500 Body mass index (BMI) [Ratio] 27.3 kg/m2 Dr. Arun Ramos Work Phone: [facility] Work Phone: 09-02-2021 18:34-0500 Body weight 61.[address] Arun Ramos Work Phone: [facility] Work Phone: 09-01-2021 17:54-0500 Diastolic blood pressure 85 mm[Hg] Dr. Arun Ramos Work Phone: [facility] Work Phone: 09-01-2021 17:54-0500 Heart rate 74 /min Dr. Arun Ramos Work Phone: [facility] Work Phone: 09-01-2021 17:54-0500 Respiratory rate 19 /min Dr. Arun Ramos Work Phone: [facility] Work Phone: 09-01-2021 17:54-0500 SaO2% (BldA) [Mass fraction] 92 % Dr. Arun Ramos Work Phone: [facility] Work Phone: 09-01-2021 17:54-0500 Systolic blood pressure 156 mm[Hg] Dr. Arun Ramos Work Phone: [facility] Work Phone: 09-01-2021 16:32-0500 Body mass index (BMI) [Ratio] 24 kg/m2 Dr. Arun Ramos Work Phone: [facility] Work Phone: 09-01-2021 16:32-0500 Body temperature 98.5 [degF] Dr. Arun Ramos Work Phone: [facility] Work Phone: 09-01-2021 16:32-0500 Body weight 63.[address] Arun Ramos Work Phone: [facility] Work Phone: 08-09-2021 11:59-0500 Body mass index (BMI) [Ratio] 28.3 kg/m2 Dr. Arun Ramos Work Phone: [facility] Work Phone: 08-09-2021 11:59-0500 Body temperature 97.5 [degF] Dr. Arun Ramos Work Phone: [facility] Work Phone: 08-09-2021 11:59-0500 Body weight 63.[address] Arun Ramos Work Phone: [facility] Work Phone: 08-09-2021 11:59-0500 Diastolic blood pressure 86 mm[Hg] Dr. Arun Ramos Work Phone: [facility] Work Phone: 08-09-2021 11:59-0500 Heart rate 80 /min Dr. Arun Ramos Work Phone: [facility] Work Phone: 08-09-2021 11:59-0500 Respiratory rate 16 /min Dr. Arun Ramos Work Phone: [facility] Work Phone: 08-09-2021 11:59-0500 SaO2% (BldA) [Mass fraction] 98 % Dr. Arun Ramos Work Phone: [facility] Work Phone: 08-09-2021 11:59-0500 Systolic blood pressure 136 mm[Hg] Dr. Arun Ramos Work Phone: [facility] Work Phone: Encounters Encounter Date Encounter Type Care Provider Facility Start: 02-03-2025 End: 02-03-2025 Emergency department patient visit Dr. Chema Perry MD Work Phone: -Emergency Department Work Phone: Start: 02-01-2025 ambulatory Chema Perry Facility:[facility] Start: 02-01-[address] 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, psychotic disturbance, mood disturbance, or anxiety (HCC) (Primary Dx); Physical deconditioning; Gait instability; Fine motor impairment; Dizziness; Cognitive communication deficit; Idiopathic peripheral neuropathy; Restless legs syndrome Start: 12-23-2024 End: 12-23-2024 ambulatory LAISHA LIZARRAGA Facility:[facility] Start: 12-20-2024 End: 12-20-2024 Patient encounter [...] Start: 12-20-2024 End: 12-20-2024 ambulatory SOURAV MARCIAL Facility:[facility] Start: 12-19-2024 End: 12-19-2024 Patient encounter procedure Young VALENCIA Work Phone: [facility] Comment on above: Skin tear of right forearm without compl ication, initial encounter (Primary Dx) Start: 12-19-2024 End: 12-19-2024 ambulatory YOUNG LORD Facility:[facility] Start: 12-16-2024 End: 12-16-2024 Refill Sourav Marcial MD Work Phone: Cardiology Comment on above: Refill Request Start: 12-09-2024 End: 12-09-2024 ambulatory LUH DEAN Facility:[facility] Start: 12-03-2024 End: 12-03-2024 ambulatory ANILA DE PAZ Facility:[facility] Start: 12-03-2024 End: 12-03-2024 Patient encounter procedure Anila De Paz MD Work Phone: General Surgery Comment on above: Hiatal hernia (Primary Dx) Start: 11-26-2024 End: 11-26-2024 Patient encounter procedure Radha Hesson OTR/L Work Phone: [facility] Comment on above: Fine motor impairment (Primary Dx); Weakness; Lack of coordination; Decreased activities of daily living (ADL) Start: 11-26-2024 End: 11-26-2024 ambulatory Radha Hesson OTR/L Work Phone: [facility] Start: 11-19-2024 End: 11-19-2024 Patient encounter procedure Radha Hesson OTR/L Work Phone: [facility] Comment on above: Fine motor impairment (Primary Dx); Weakness; Lack of coordination Start: 11-19-2024 End: 11-19-2024 ambulatory Radha Hesson OTR/L Work Phone: [facility] Start: 11-17-2024 End: 11-17-2024 Orders Only Raquel Null MD Work Phone: General Surgery Comment on above: Dilation of biliary tract (Primary Dx) Start: 11-15-2024 End: 11-17-2024 Evaluation and management of inpatient ANILA DE PAZ Facility:[facility] Start: 11-15-2024 End: 11-15-2024 Telephone encounter Taylor Forrest RN General Surgery Comment on above: Generalized abdominal pain (Primary Dx); Diarrhea, unspecified type Start: 11-12-2024 End: 11-12-2024 Patient encounter procedure Radha Hesson OTR/L Work Phone: [facility] Comment on above: Fine motor impairment (Primary Dx); Decreased activities of daily living (ADL); Lack of coordination; Weakness Start: 11-12-2024 End: 11-12-2024 ambulatory Radha Hesson OTR/L Work Phone: [facility] Start: 11-12-2024 End: 11-12-2024 Telephone encounter Pippa Fox RN General Surgery Start: 11-11-2024 End: 11-11-2024 [facility] Facility:[facility] Start: 11-11-2024 End: 11-11-2024 Subsequent hospital visit by physician [facility] Cat Scan Comment on above: Nausea [R11.0] Start: 11-09-2024 End: 11-09-[address] Susan Emery DO Work Phone: [facility] Work Phone: Start: 11-09-2024 End: 11-09-[address] Chema Perry MD -Radiology, [facility] Work Phone: Start: 11-08-2024 End: 11-09-2024 [facility] Facility:[facility] Start: 11-08-2024 End: 11-08-2024 E-mail encounter from caregiver Taylor Forrest RN General Surgery Start: 11-08-2024 End: 11-08-2024 Follow-up encounter Taylor Forrest RN General Surgery Comment on above: Follow-up on Questions Start: 11-05-2024 End: 11-05-2024 Patient encounter procedure Radha Street OTR/L Work Phone: [facility] Comment on above: Fine motor impairment (Primary Dx); Decreased activities of daily living (ADL); Lack of coordination; Weakness Start: 11-05-2024 End: 11-05-[address] OTR/L Work Phone: [facility] Start: 11-03-2024 End: 11-03-2024 Patient encounter procedure Denice Jacobs PA-C Work Phone: Neurology Comment on above: Degeneration of intervertebral disc of l umbar region, unspecified whether pain present (Primary Dx); Left leg paresthesias; Right leg paresthesias; Ulnar neuropathy of right upper extremity Start: 11-03-2024 End: 11-03-2024 ambulatory DENICE JACOBS Facility:[facility] Start: 11-02-2024 End: 11-02-2024 Admission to same day surgery center Anila De Paz MD Work Phone: General Surgery Start: 11-02-2024 End: 11-02-2024 E-mail encounter from caregiver Anila De Paz MD Work Phone: General Surgery Start: 11-01-2024 End: 11-01-2024 ambulatory HUMZA CAMEJO Facility:[facility] Start: 11-01-2024 End: 11-01-2024 Patient encounter [...] 10-29-2024 End: 10-29-2024 ambulatory ANILA DE PAZ Facility:[facility] Start: 10-29-2024 End: 10-29-2024 Patient encounter procedure Radha Street OTR/L Work Phone: [facility] Comment on above: Decreased activities of daily living (AD L) (Primary Dx); Fine motor impairment; Lack of coordination; Weakness Start: 10-29-2024 End: 10-29-[address] OTR/L Work Phone: [facility] Start: 10-22-2024 End: 10-22-2024 Patient encounter procedure Sandra SUMNER -[facility] Work Phone: Start: 10-22-2024 End: 10-22-2024 ambulatory Chema Perry Facility:[facility] Start: 10-18-2024 End: 10-18-[address] Chema Perry MD Work Phone: [facility] Work Phone: Start: 10-18-2024 End: 10-18-[address] Chema Perry MD -Outpatient Breast Imaging Work Phone: Start: 10-17-2024 End: 10-18-2024 ambulatory Laisha Lizarraga APRN.CNP Work Phone: Neurology Comment on above: Primary Care Phyiscian (PCP) Start: 10-14-2024 End: 10-14-[address] Chema Perry MD -[facility] Work Phone: Start: 10-14-2024 End: 10-14-2024 ambulatory Chema Perry Facility:[facility] Start: 10-13-2024 End: 10-13-2024 ambulatory LAISHA LIZARRAGA Facility:[facility] Start: 10-13-2024 End: 10-13-2024 Office outpatient visit 40 minutes Laisha Lizarraga APRN.ADMINISTRATIVE JOB TITLES Work Phone: Neurology Comment on above: Mild [...] Start: 10-08-2024 End: 10-08-2024 ambulatory ANILA ZANDRA Facility:[facility] Start: 09-20-2024 End: 09-23-2024 Evaluation and management of inpatient ANILA DE PAZ Facility:[facility] Start: 09-18-2024 End: 09-18-2024 Emergency department patient visit Dr. Susan Emery DO -Emergency Department Work Phone: Start: 09-14-2024 End: 09-14-2024 ambulatory CHEMA PERRY Facility:[facility] Start: 09-14-2024 Encounter for other preprocedural examination ANILA DE PAZ [facility] Start: 09-14-2024 End: 09-14-2024 Office consultation new/estab patient 80 min Pacc Lindsay 1 Work Phone: Pre Anesthesia Comment on [...] 09-14-2024 End: 09-14-2024 Preprocedural examination done Pacc Lindsay 1 Work Phone: [facility] Work Phone: Start: 09-14-2024 End: 09-14-2024 [facility] Facility:[facility] Start: 09-14-2024 Encounter for other preprocedural examination [facility] Start: 09-13-2024 End: 09-13-2024 Orders Only Alisa Haile MD Work Phone: Gastroenterology Comment on above: Choledocholithiasis (Primary Dx) 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] Start: 09-10-2024 End: 09-10-2024 ambulatory DENICE EMELIA Neurology Comment on above: EMG Start: 09-10-2024 End: 09-10-2024 Patient encounter procedure Emg 2 Neur [facility] (Max Weight: 850) Neurology Start: 09-09-2024 End: 09-09-2024 Telephone encounter Jacqueline Noland MACHINE [employer] General Surgery Start: 09-08-2024 End: 09-08-2024 Orders Only Susan Srinivasan MD Work Phone: General Surgery Comment on above: Dilated pancreatic duct (Primary Dx) UPDATED Pre-op Instr uctions Patient Update Tube Mounter - O ther (Update on EUS orders ) Start: 09-07-2024 End: 09-07-2024 [facility] Facility:[facility] Start: 09-07-2024 End: 09-07-2024 Subsequent hospital visit by physician [facility] (I-Stat/1.5t) Work Phone: Radiology Comment [...] done Anila De Paz MD Work Phone: [facility] Start: 08-25-2024 End: 08-25-2024 ambulatory QARAB DUNG Facility:[facility] Start: 08-25-2024 End: 08-25-2024 Admission to same day surgery center Taylor Forrest RN General Surgery Comment on above: Contact Information Start: 08-25-2024 End: 08-25-2024 E-mail encounter from caregiver Taylor Forrest RN General Surgery Start: 08-25-2024 End: 08-25-2024 Telephone encounter Taylor Forrest RN General Surgery Comment on above: Patient Question (Next Steps ) Start: 08-09-2024 End: 08-09-2024 ambulatory DENICE [facility] Facility:[facility] Start: 08-06-2024 End: 08-06-2024 ambulatory DENICE [facility] Facility:[facility] Start: 08-06-2024 End: 08-06-2024 Patient encounter procedure Denice Jacobs PA-C Work Phone: Neurology Comment on above: Neuropathy (Primary Dx); Paresthesia of both feet; Frequent falls Start: 08-03-2024 End: 08-03-2024 ambulatory [facility] Facility:[facility] Start: 08-03-2024 Encounter for other preprocedural examination SOURAV MARCIAL [facility] Start: 08-03-2024 End: 08-03-2024 Patient encounter procedure [...] examination done Sourav Marcial MD Work Phone: [facility] Start: 08-02-2024 End: 08-02-2024 ambulatory HUMZA CAMEJO Facility:[facility] Start: 08-02-2024 End: 08-02-2024 Patient encounter procedure Humza Camejo MD Work Phone: Ophthalmology Comment on above: Primary open angle glaucoma (POAG) of elisa th eyes, severe stage Start: 07-21-2024 End: 07-21-2024 [facility] KIRSTIN Facility:[facility] Start: 07-21-2024 End: 07-21-2024 Subsequent hospital visit by physician Eliazar Brown MD Work Phone: Gastroenterology Comment on above: Hiatal hernia [K44.9] Start: 07-19-2024 End: 07-19-[address] Christopher Turk DO -[facility] Work Phone: Start: 07-19-2024 End: 07-19-2024 ambulatory Christopher Turk Facility:[facility] Start: 07-19-2024 End: 07-19-2024 Telephone encounter Willa Torres APRN.CNP Work Phone: Pre Anesthesia Comment on above: Request Outside Medical Records Start: 07-16-2024 End: 07-16-2024 Preprocedural examination done [place] [id number] Work Phone: [facility] Start: 07-16-2024 End: 07-16-2024 PAT [place] [id number] Work Phone: Pre Anesthesia Comment on above: Pre-operative examination (Primary Dx); 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); MS (multiple sclerosis) ([facility]); History of complex partial epilepsy; Restless legs syndrome; Atherosclerosis of [place] coronary artery of [place] heart with angina pectoris (HCC); Essential hypertension; Mixed hyperlipidemia; Parkinsonism, unspecified Parkinsonism type ([facility]); Seizure disorder ([facility]); History of DVT (deep vein thrombosis); Obstructive sleep apnea syndrome; Bronchiectasis without complication ([facility]); Gastroesophageal reflux disease, unspecified whether esophagitis present; Esophageal stricture; Hypokalemia due to excessive renal loss of potassium; Overactive bladder; Hypothyroidism, unspecified type; History of malignant neoplasm of breast; Bilateral leg edema; Osteoporosis, unspecified osteoporosis type, unspecified pathological fracture presence; Multiple falls; Pulmonary embolism, other, unspecified chronicity, unspecified whether acute cor pulmonale present ([facility]) Start: 07-14-2024 End: 07-14-2024 Telephone encounter Jaqueline Del Cid RNaircraft load controller Comment on above: Appointment Confirmation Start: 07-12-2024 End: 07-12-[address] Christopher Turk DO -[facility] Work Phone: Start: 07-12-2024 End: 07-12-2024 ambulatory Chema Perry Facility:[facility] Start: 07-09-2024 End: 07-09-2024 ambulatory Christopher Turk Facility:[facility] Start: 07-09-2024 End: 07-09-[address] Christopher Turk DO -Physical Therapy Work Phone: Start: 07-09-2024 End: 07-09-2024 ambulatory ANILA AGUILARARRETE Facility:[facility] Start: 07-07-2024 End: 07-08-2024 Telephone encounter Fatimah Robbins RNaircraft load controller Comment on above: Patient Question (EGD Instructions neede d) Patient Question Start: 07-07-2024 End: 07-07-[address] Chema Perry MD -[facility] Work Phone: Start: 07-07-2024 End: 07-07-2024 ambulatory Chema Perry Facility:[facility] Start: 07-06-2024 ambulatory Chema Perry Facility:[facility] Start: 07-05-2024 End: 07-05-[address] 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, psychotic disturbance, mood disturbance, or anxiety (HCC) (Primary Dx); Physical deconditioning; Gait instability; Fine motor impairment; Dizziness; Idiopathic scoliosis and kyphoscoliosis; Multiple falls; Paresthesia of both feet Start: 06-24-2024 End: 06-24-2024 [facility] ANILA DE PAZ Facility:[facility] Start: 06-24-2024 End: 06-24-2024 Subsequent hospital visit by physician [facility] (I-Stat) Work Phone: Cat Scan Comment on above: Hiatal hernia [K44.9] Start: 06-23-2024 End: 06-23-2024 ambulatory ANILA DE PAZ Facility:[facility] Start: 06-18-2024 End: 06-18-2024 Preprocedural examination done Anila De Paz MD Work Phone: [facility] Start: 06-18-2024 End: 07-07-2024 Orders Only Anila De Paz MD Work Phone: General Surgery Comment on above: H/O acute myocardial infarction (Primary Dx); Cardiomyopathy, unspecified type (HCC); Pre-op evaluation; Encounter to establish care Hiatal hernia (Prima ry Dx) Pre-Procedure Leticia vázquez Start: 06-17-2024 End: 06-17-2024 Telephone encounter Taylor Forrest RN General Surgery Comment on above: Tube Mounter - Other (Chart prep) Start: 06-16-2024 End: 06-16-2024 ambulatory [facility] Facility:[facility] Start: 06-10-2024 End: 06-10-2024 Refill Humza Cameoj MD Work Phone: Ophthalmology Comment on above: Refill Request Start: 06-07-2024 End: 06-07-2024 Emergency department patient visit Susan Emery Facility:[facility] Start: 06-05-2024 End: 06-05-2024 ambulatory [facility] Facility:[facility] Start: 05-17-2024 End: 05-17-2024 ambulatory [facility] Facility:[facility] Start: 05-17-2024 End: 05-17-2024 Patient encounter procedure Susan Squires MD Work Phone: General Surgery Comment on above: Hiatal hernia (Primary Dx); Gastroesophageal reflux disease, unspecified whether esophagitis present Start: 05-04-2024 End: 05-04-2024 ambulatory [facility] Facility:[facility] Start: 05-03-2024 End: 05-03-2024 ambulatory [facility] Facility:[facility] Start: 05-03-2024 End: 05-03-2024 Patient encounter procedure Humza Camejo MD Work Phone: Ophthalmology Comment on above: Primary open angle glaucoma (POAG) of elisa th eyes, severe stage Start: 04-22-2024 End: 04-22-2024 ambulatory [facility] Start: 04-19-2024 End: 04-19-2024 ambulatory [facility] Start: 04-17-2024 End: 04-17-2024 Emergency department patient visit Vincent Morris Facility:[facility] Start: 04-16-2024 End: 04-16-2024 ambulatory [facility] Facility:[facility] Start: 04-09-2024 End: 04-09-2024 ambulatory Sandra Vincent NP Facility: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 Start: 03-16-2024 End: 03-16-2024 ambulatory [facility] Start: 03-16-2024 End: 03-16-2024 ambulatory [facility] Facility:[facility] Start: 03-12-2024 Refill Laisha Lizarraga APRN.ADMINISTRATIVE JOB TITLES Work Phone: Neurology Comment on above: Refill Request Start: 03-01-2024 End: 03-01-2024 ambulatory Malachi Caal Facility:[facility] Start: 02-23-2024 End: 02-23-2024 ambulatory [facility] Start: 02-11-2024 End: 02-12-2024 ambulatory [facility] Facility:[facility] Start: 12-26-2023 Refill Laisha Lizarraga APRN.ADMINISTRATIVE JOB TITLES Work Phone: Neurology Comment on above: Refill Request Start: 12-26-2023 Refill Humza Camejo MD Work Phone: Ophthalmology Comment on above: Refill Request Start: 12-05-2023 Non-patient / Non-visit Dr. Chema Perry Work Phone: [facility] Work Phone: Start: 12-04-2023 Non-patient / Non-visit Dr. Chema Perry Work Phone: [facility] Start: 12-04-2023 End: 12-04-[address] Chema Perry Work Phone: [facility] Work Phone: Start: 12-04-2023 End: 12-04-[address] [facility] Work Phone: Start: 11-12-2023 End: 11-12-[address] Chema Perry Work Phone: [facility] Work Phone: Start: 10-30-2023 Refill Humza Camejo [...] 10-14-[address] Chema Perry Work Phone: [facility] Work Phone: Start: 10-14-2023 End: 10-14-[address] Chema Perry Work Phone: [facility]-Laboratory Work Phone: Start: 10-08-2023 End: 10-08-[address] Chema Perry Work Phone: [facility]-Pulmonary Medicine [facility] Work Phone: Start: 09-24-2023 End: 09-24-[address] Chema Perry Work Phone: [facility] Work Phone: Start: 08-14-2023 End: 08-14-[address] Chema Perry Work Phone: [facility] Work Phone: Start: 08-14-2023 End: 08-14-[address] Chema Perry Work Phone: [facility]-Physical Therapy Work Phone: Start: 08-14-[address] Chema Perry Work Phone: [facility]-Physical Therapy Work Phone: Start: 08-13-2023 End: 08-13-[address] Chema Perry Work Phone: [facility] [place] Work Phone: Start: 07-15-2023 End: 07-15-[address] Chema Perry Work Phone: [facility] Work Phone: Start: 07-15-2023 End: 07-15-[address] Chema Perry Work Phone: 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 Chema Prery Work Phone: [facility] Work Phone: Start: 06-04-2023 End: 06-04-[address] Chema Perry Work Phone: [facility] Work Phone: Start: 05-29-2023 Non-patient / Non-visit Dr. Chema Perry Work Phone: [facility] Start: 05-29-2023 End: 05-29-[address] Chema Perry Work Phone: [facility] Work Phone: Start: 05-29-2023 End: 05-29-[address] Chema Perry Work Phone: [facility]-Cardiovascula r Services Work Phone: Start: 05-23-2023 Refill Laisha Lizarraga APRN.ADMINISTRATIVE JOB TITLES Work Phone: Neurology Start: 05-22-2023 End: 05-22-[address] Chema Perry Work Phone: [facility] Work Phone: Start: 05-12-2023 End: 05-12-[address] Chema Perry Work Phone: [facility] Work Phone: Start: 05-06-2023 End: 05-06-[address] Chema Perry Work Phone: [facility] Work Phone: Start: 05-06-2023 End: 05-06-[address] Chema Perry Work Phone: [facility]-Speech Therapy Work Phone: Start: 04-22-2023 End: 04-22-[address] Chema Perry Work Phone: [facility]-Laboratory Work Phone: Start: 04-08-2023 ambulatory Laisha Zia STEPHENS Work Phone: Neurology Comment on above: Tolerating Donepezil Start: 04-07-2023 End: 04-07-[address] Chema Perry Work Phone: [facility]-Pulmonary Medicine [facility] Work Phone: Start: 04-02-2023 End: 04-02-2023 Emergency department patient visit Dr. Chema Perry Work Phone: [facility]-Emergency Department Work Phone: Start: 04-01-[address] Chema Perry Work Phone: [facility]-Speech Therapy Work Phone: Start: 03-24-2023 End: 03-24-[address] Chema Perry Work Phone: [facility] Work Phone: Start: 02-12-2023 End: 02-12-[address] Chema Perry Work Phone: [facility] Work Phone: Start: 02-12-[address] Chema Perry Work Phone: [facility]-Occupational Therapy Work Phone: Start: 02-06-2023 End: 02-06-[address] Chema Perry Work Phone: [facility] Work Phone: Start: 02-06-2023 End: 02-06-[address] Chema Perry Work Phone: [facility]-Sleep Lab Start: 02-04-[address] Chema Perry Work Phone: [facility]-Speech Therapy Start: 01-29-2023 End: 01-29-[address] Chema Perry Work Phone: [facility] [place] Start: 01-29-2023 End: 01-29-[address] Chema Perry Work Phone: [facility] Work Phone: Start: 01-29-2023 End: 01-29-[address] Chema Perry Work Phone: [facility]-Occupational Therapy Start: 01-20-2023 End: 01-20-[address] Chema Perry Work Phone: [facility]-Now Clinic Start: 01-17-2023 End: 01-17-[address] Chema Perry Work Phone: [facility] Radiology Start: 01-17-[address] Chema Perry Work Phone: [facility]-Occupational Therapy Start: 01-15-2023 End: 01-15-[address] Chema Perry Work Phone: [facility] Work Phone: Start: 01-15-2023 End: 01-15-[address] Chema Perry Work Phone: [facility] Start: 01-10-2023 End: 01-10-[address] Chema Perry Work Phone: [facility] Work Phone: Start: 01-10-2023 End: 01-10-[address] Chema Perry Work Phone: [facility]-Outpatient Breast Imaging Start: 01-08-2023 End: 01-08-[address] Chema Perry Work Phone: [facility] Start: 01-02-2023 End: 01-02-[address] Chema Perry Work Phone: [facility] Start: 01-01-2023 End: 01-01-[address] Chema Perry Work Phone: [facility]-Pulmonary Medicine [facility] Start: 12-25-2022 Non-patient / Non-visit Dr. Chema Perry Work Phone: [facility] Start: 12-25-2022 End: 12-25-[address] Chema Perry Work Phone: [facility]-Cardiovascula r Services Start: 12-25-2022 End: 12-25-[address] Chema Perry Work Phone: [facility] Start: 12-11-[address] Chema Perry Work Phone: [facility]-Physical Therapy Start: 12-04-2022 End: 12-04-2022 Subsequent hospital visit by physician [employer] [facility] (Lg Bore/3t) Radiology Comment on above: 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) [F03.90] Start: 12-03-2022 End: 12-03-[address] Chema Perry Work Phone: [facility] Work Phone: Start: 12-03-2022 End: 12-03-[address] Chema Perry Work Phone: [facility]-Laboratory Start: 11-23-2022 End: 11-23-[address] Chema Perry Work Phone: [facility] Start: 11-13-2022 End: 11-13-2022 Patient encounter procedure Alisha Zia STEPHENS Work Phone: Neurology Comment on above: 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) (Primary Dx); History of complex partial epilepsy; Gait instability; Multiple falls; Physical deconditioning; Depression, unspecified depression type; Anxiety; Dizziness; Imbalance Start: 10-23-2022 End: 10-23-[address] Chema Perry Work Phone: [facility] Start: 10-21-2022 End: 10-21-[address] Chema Perry Work Phone: [facility] Start: 10-16-2022 End: 10-16-2022 Emergency department patient visit Dr. Chema Perry Work Phone: [facility]-Emergency Department Start: 10-14-[address] Che[facility] Start: 09-21-2022 End: 09-21-[address] Chema Perry Work Phone: [facility] Work Phone: Start: 09-21-2022 End: 09-21-[address] Chema Perry Work Phone: [facility] Start: 09-16-[address] Chema Perry [facility] Start: 09-06-2022 End: 09-06-[address] Chema Perry Work Phone: [facility] Work Phone: Start: 09-06-2022 End: 09-06-[address] Chema Perry Work Phone: [facility] Start: 07-30-2022 End: 07-30-[address] Chema Perry Work Phone: [facility] Work Phone: Start: 07-30-2022 End: 07-30-[address] Chema Perry Work Phone: [facility]-Speech Therapy Start: 07-24-2022 End: 07-24-[address] Chema Perry Work Phone: [facility] Start: 07-22-2022 End: 07-22-[address] Arun Ramos Work Phone: [facility] Start: 07-22-[address] Arun Ramos [facility] Start: 07-18-2022 End: 07-18-[address] Arun Ramos Work Phone: [facility] Radiology Start: 07-13-2022 End: 07-13-2022 Emergency department patient visit Dr. Arun Ramos Work Phone: [facility]-Emergency Department Start: 07-12-2022 End: 07-12-[address] Arun Ramos Work Phone: [facility] Work Phone: Start: 07-12-2022 End: 07-12-[address] Arun Ramos Work Phone: [facility] Start: 07-08-2022 Non-patient / Non-visit Dr. Arun Ramos Work Phone: [facility] Internal Medicine Start: 07-07-2022 End: 07-07-[address] Arun Ramos Work Phone: [facility] Start: 07-05-[address] Arun Ramos Work Phone: [facility]-Physical Therapy Start: 07-04-2022 End: 07-04-[address] Arun Ramos Work Phone: [facility] [place] Start: 06-25-2022 End: 06-25-[address] Arun Ramos [facility] Start: 06-07-2022 End: 06-07-[address] Arun Ramos Work Phone: [facility] Start: 05-13-2022 End: 05-13-[address] Arun Ramos Work Phone: [facility] [place] Start: 04-25-2022 End: 04-25-[address] Arun Ramos Work Phone: [facility] [place] Start: 04-11-2022 End: 04-11-2022 Patient encounter procedure Laisha Lizarraga APRN.CNP Work Phone: Neurology Comment on above: Dementia without behavioral disturbance, unspecified dementia type (HCC) (Primary Dx); History of complex partial epilepsy; Gait instability; Multiple falls; Physical deconditioning; Cognitive communication deficit Start: 03-27-2022 End: 03-27-[address] Arun Ramos [facility] Start: 03-21-2022 End: 03-21-[address] Arun Ramos Work Phone: [facility] [place] Start: 03-20-2022 Non-patient / Non-visit Dr. Arun Ramos Work Phone: [facility] Internal Medicine Start: 03-15-2022 End: 03-15-2022 Emergency department patient visit Dr. Arun Ramos Work Phone: [facility]-Emergency Department Start: 03-15-[address] Arun [facility] Start: 03-08-[address] [facility] Start: 03-07-2022 End: 03-07-[address] Arun [facility] Flr Start: 02-28-[address] Arun Ramos [facility] Start: 02-25-2022 End: 02-25-[address] Arun Ramos [facility] Start: 02-15-2022 End: 02-15-2022 Emergency department patient visit Dr. Arun Ramos Work Phone: [facility]-Emergency Department Start: 02-14-2022 End: 02-14-[address] Arun Ramos [facility] Flr Start: 02-13-[address] Arun Ramos [facility] Start: 02-07-2022 End: 02-07-[address] Arun Ramos Work Phone: [facility]-Pulmonary Services/Neurology Start: 02-07-2022 Non-patient / Non-visit Dr. Arun Ramos Work Phone: [facility] Start: 02-06-[address] Arun Ramos Work Phone: [facility]-Physical Therapy Start: 01-23-2022 End: 01-23-2022 Patient encounter procedure Mitchel Muse MD Work Phone: Neurology Comment on above: Dementia without behavioral disturbance, unspecified dementia type (HCC) (Primary Dx); History of complex partial epilepsy; Gait instability; Multiple falls; Depression, unspecified depression type; Anxiety; Physical deconditioning Start: 01-10-2022 End: 01-10-[address] Arun Ramos Work Phone: [facility] Start: 11-26-2021 End: 11-26-[address] Ar[facility] Ramos [facility] Start: 11-23-2021 End: 11-23-[address] Arun Ramos Work Phone: [facility] Start: 11-23-2021 End: 11-23-[address] Arun Ramos Work Phone: [facility]-Laboratory, y Office [address] [place] [address] Start: 11-13-2021 End: 11-13-2021 Patient encounter procedure Laisha Lizarraga APRN.CNP Work Phone: Neurology Comment on above: Dementia without behavioral disturbance, unspecified dementia type (HCC) (Primary Dx); History of complex partial epilepsy; Gait instability; Multiple falls; Depression, unspecified depression type; Anxiety; Physical deconditioning Start: 11-07-2021 End: 11-07-[address] Arun Ramos Work Phone: [facility] Start: 10-08-2021 Non-patient / Non-visit Dr. Arun Ramos Work Phone: [facility] Start: 10-07-2021 Non-patient / Non-visit Dr. Arun Ramos Work Phone: [facility] Start: 10-06-2021 Non-patient / Non-visit Dr. Arun Ramos Work Phone: [facility] Start: 10-05-2021 Non-patient / Non-visit Dr. Arun Ramos Work Phone: [facility] Start: 10-05-2021 End: 10-08-2021 Evaluation and management of inpatient [facility]. Arun Ramos [facility] Start: 09-04-2021 End: 10-04-2021 Evaluation and management of inpatient Dr. Arun Ramos Work Phone: [facility]-Transitional Care Unit Start: 09-04-2021 Non-patient / Non-visit Dr. Arun Ramos Work Phone: [facility] Start: 09-03-2021 Non-patient / Non-visit Dr. Arun Ramos Work Phone: [facility] Start: 09-02-2021 Non-patient / Non-visit Dr. Arun Ramos Work Phone: [facility] Start: 09-02-2021 End: 09-04-2021 Evaluation and management of inpatient Dr. Arun Ramos [facility] Start: 09-01-2021 End: 09-01-2021 Emergency department patient visit Dr. Arun Ramos Work Phone: [facility]-Emergency Department Start: 08-13-[address] Arun Ramos Work Phone: [facility] Start: 08-09-2021 End: 08-09-[address] Arun Ramos Work Phone: [facility]-Pulmonary Medicine [facility] Start: 02-06-[address] Arun Ramos Work Phone: [facility] Procedures Date Procedure Procedure Detail Performing Clinician Start: 02-03-2025 CT of upper limb without contrast Dr. Sulema Perry MD Work Phone: Start: 02-03-2025 Plain X-ray of shoulder Dr. Chema Perry MD Work Phone: Start: 11-15-2024 Antibody screen ANILA DE PAZ Comment on above: Order Comment: Specimen Type: BLOOD SPEC IMENOrdering Facility: [facility] Address: [address] [place] [address] Performed By: #### T SCR ####CC MAIN BLOOD BANKCLIA [id number] [address] [place] Start: 11-09-2024 X-ray [...] Comment: Specimen Type: BLOOD SPEC IMENOrdering Facility: [facility] Address: [address] [place] [address] Performed By: #### T SCR30 ####CC MAIN BLOOD BANKCLIA [id number] [place] [address] [place] Start: 09-13-2024 Esophagoscp [...] rendering w/interp&postproc diff work station Laisha Lizarraga APRN.ADMINISTRATIVE JOB TITLES Work Phone: Start: 12-04-2022 Mri brain brain [...] DTaP,Tdap,Td Vaccine (4 - Td or Tdap) [facility] Start: 01-05-2029 Urine microalbumin profile DTaP,Tdap,Td Vaccine (3 - Td or Tdap) [facility] Start: 11-17-2027 Diabetes Screening Diabetes Screening [facility] Start: 09-23-2027 Diabetes Screening Diabetes Screening [facility] Start: 09-14-2027 Diabetes Screening Diabetes Screening [facility] Start: 08-09-2027 Diabetes Screening Diabetes Screening [facility] Start: 12-20-2025 End: 12-20-2025 Patient encounter procedure 12/20/2025 3:30 PM EDT Office Visit Cardiology [address] [place] [address] Joan Guadalupe APRN.ADMINISTRATIVE JOB TITLES [address] [place] [address] 1yr follow up Cardiology Comment on above: 1yr follow up Start: 11-16-2025 End: 04-25-2026 OCT OPTIC NERVE CIRRUS OU (BOTH EYES) OCT OPTIC NERVE CIRRUS OU (BOTH EYES) OPHT Imaging Routine Primary open angle glaucoma (POAG) of both eyes, severe stage Expected: 11/16/2025, Expires: 04/25/2026 [facility] Work Phone: Comment on above: Expected: 11/16/2025, Expires: Start: 09-14-2025 Hepatitis B surface antibody level LDL Cholesterol [facility] Start: 08-17-2025 End: 01-24-2026 VISUAL FIELD 24-2 OU (BOTH EYES) VISUAL FIELD 24-2 OU (BOTH EYES) OPHT Imaging Routine Primary open angle glaucoma (POAG) of both eyes, severe stage Expected: 08/17/2025, Expires: 01/24/2026 [facility] Work Phone: Comment on above: Expected: 08/17/2025, Expires: Start: 05-10-2025 End: 05-10-2025 Patient encounter procedure 05/10/2025 11:00 AM EDT Office Visit Neurology [address] [place], [place] [id number] Denice Jacobs PA-C [address] [place] [address] 6 month follow up Neurology Comment on above: 6 month follow up Start: 03-24-2025 End: 03-24-2025 Patient encounter procedure 03/24/2025 2:30 PM EDT Office Visit Neurology [address] [id number] Laisha Lizarraga, ROSMERY.ADMINISTRATIVE JOB TITLES 9500 [place] [address] follow up- no moca Neurology Comment on above: follow up- no moca Start: 02-17-2025 End: 02-17-2025 Patient encounter procedure 02/17/2025 1:00 PM EDT Office Visit Neurology [address] [place] [address] Dimitry Maguire MD [address] [place], [place] [id number] 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 Start: 02-01-2025 End: 02-01-2025 Patient encounter procedure 02/01/2025 1:30 PM EDT Office Visit Cardiology [address] [place] [address] [place] [address] [place] [address] 6mo follow up Cardiology Comment on above: 6mo follow up Start: 01-27-2025 End: 01-27-2025 Patient encounter procedure 01/27/2025 2:30 PM EDT Office Visit Vasculary Surgery [address] [place], [place] [id number] Carotid bruit, unspecified laterality [R09.89] Vasculary Surgery Comment on above: Carotid bruit, unspecified laterality [R 09.89] Start: 01-05-2025 End: 01-05-2025 Patient encounter procedure 01/05/2025 3:30 PM EDT Office Visit [facility] Ophthalmology [address] [place] [address] Estelle Hodges MD [address] [address] Return in about 2 months (around 01/01/2025) for OCT OU. Ophthalmology Comment on above: Return in about 2 months (around 01/02/20 25) for OCT OU. 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, psychotic disturbance, mood disturbance, or anxiety Start: 12-20-2024 End: 12-20-2024 Patient encounter procedure 12/20/2024 2:00 PM EDT Office Visit Cardiology [address] [place] [address] [place] [address] [place] [address] discuss medication/edema Cardiology Comment on above: discuss medication/edema Start: 12-09-2024 End: 12-09-2024 Patient encounter procedure 12/09/2024 1:40 PM EDT Office Visit [facility] [address] [place] [address] Luh Dean PALatrice [address] [place] [address] Degeneration of intervertebral disc of lumbar region, unspecified whether pain present [M51.369]; Left leg paresthesias [R20.2]; Right leg paresthesias [R20.2] [facility] Comment on above: Degeneration of intervertebral disc of l umbar region, unspecified whether pain present [M51.369]; Left leg paresthesias [R20.2]; Right leg paresthesias [R20.2] Start: 12-03-2024 End: 12-03-2024 Patient encounter procedure 12/03/2024 11:20 AM EDT Office Visit General Surgery [address] [id number] Anila De Paz MD [address] [address] Follow-up/ LPEHRLuis franchesca 2.3.25 General Surgery Comment on above: Follow-up/ LPEHR, Lap franchesca 2.3.25 Start: 11-26-2024 End: 11-26-2024 Patient encounter procedure 11/26/2024 4:15 PM EDT OT/PT/Speech Visit [facility] [address] [place] [address], OTR/L [address] [place] [address] 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, R29.898] -- Recheck [facility] Comment on above: 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, R29.898] -- Recheck Start: 11-19-2024 End: 11-19-2024 Patient encounter procedure 11/19/2024 4:15 PM EDT OT/PT/Speech Visit [facility] [address] [place] [address], OTR/L [address] [place] [address] 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, R29.898] [facility] Comment on above: 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, R29.898] Start: 11-15-2024 End: 02-14-2025 Amylase [Enzymatic activity/volume] in Serum or Plasma AMYLASE Lab Routine Generalized abdominal pain Diarrhea, unspecified type Expected: 11/15/2024, Expires: 02/14/2025 [facility] Comment on above: Expected: 11/15/2024, Expires: Start: 11-15-2024 End: 02-15-2025 CBC W Auto Differential panel - Blood COMPLETE BLOOD COUNT AND DIFFERENTIAL Lab Routine Generalized abdominal pain Diarrhea, unspecified type Expected: 11/15/2024, Expires: 02/15/2025 [facility] Comment on above: Expected: 11/15/2024, Expires: Start: 11-15-2024 End: 02-15-2025 Comprehensive metabolic 2000 panel - Serum or Plasma COMPREHENSIVE METABOLIC PANEL Lab Routine Generalized abdominal pain Diarrhea, unspecified type Expected: 11/15/2024, Expires: 02/15/2025 [facility] Work Phone: Comment on above: Expected: 11/15/2024, Expires: Start: 11-15-2024 End: 02-14-2025 Lipase [Enzymatic activity/volume] in Serum or Plasma LIPASE Lab Routine Generalized abdominal pain Diarrhea, unspecified type Expected: 11/15/2024, Expires: 02/14/2025 [facility] Comment on above: Expected: 11/15/2024, Expires: Start: 11-12-2024 End: 11-12-2024 Patient encounter procedure 11/12/2024 3:30 PM EDT OT/PT/Speech Visit [facility] [address] [place] [address], OTR/L [address] [place] [address] 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, R29.898] [facility] Comment on above: 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, R29.898] Start: 11-11-2024 End: 11-11-2024 Patient encounter procedure Cat Scan Comment on above: Nausea [R11.0] Start: 11-10-2024 End: 04-19-2025 OCT OPTIC NERVE CIRRUS OU (BOTH EYES) OCT OPTIC NERVE CIRRUS OU (BOTH EYES) [facility] Imaging Routine Primary open angle glaucoma (POAG) of both eyes, severe stage Expected: 11/10/2024, Expires: 04/19/2025 [facility] Work Phone: Comment on above: Expected: 11/10/2024, Expires: Start: 11-05-2024 End: 11-05-2024 Patient encounter procedure 11/05/2024 2:00 PM EDT OT/PT/Speech Visit [facility] [address] [place] [address], OTR/L [address] [place] [address] 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, R29.898] [facility] Comment on above: 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, R29.898] Start: 11-03-2024 End: 11-03-2024 Patient encounter procedure Neurology Comment on above: Three month follow up had EMG, neuropathy, frequent falls Start: 11-02-2024 End: 02-01-2025 CREATININE BLD CREATININE BLD Lab Routine Nausea Generalized abdominal pain Expected: 11/02/2024, Expires: 02/01/2025 [facility] Comment on above: Expected: 11/02/2024, Expires: Start: 11-01-2024 End: 11-01-2024 Patient encounter procedure 11/01/2024 2:45 PM EDT Office Visit [facility] Ophthalmology [address] [place] [address] Humza Camejo MD [address] [place] [address] Return in about 3 months [...] AM EST Office Visit General Surgery [address] [place] [address] Anila De Paz MD [address] [place] [address] post op 2 wks/ lap paraesophageal hernia repair 09/20/2024 General Surgery Comment on above: post op 2 wks/ lap paraesophageal hernia repair 09/20/2024 Start: 10-07-2024 End: 10-07-2024 Patient encounter procedure 10/07/2024 1:45 PM EST Office Visit Neurology [address] [phone] Laisha Lizarraga APRN.ADMINISTRATIVE [employer]LES [address] [place] [address] follow up- no moca Neurology Comment on above: follow up- no moca Start: 09-20-2024 End: 09-20-2024 Admission to same day surgery center 09/20/2024 12:35 PM EST - 09/20/2024 5:55 PM EST Surgery Admitting [address] [place] [address] Anila De Paz MD [address] [place], [place] [phone] LAPAROSCOPIC RPR PARAESOHAGEAL HERNIA W/ FUNDOPLASTY +/- [...] 12:35 PM EST Hospital Encounter Admitting [address] [place] [address] Anila De Paz MD [address] [place] [address] Hiatal hernia [K44.9], Epigastric pain [R10.13], Nausea and vomiting, unspecified vomiting type [R11.2], Pre-op exam [Z01.818] Admitting Comment on above: Hiatal hernia [K44.9], Epigastric pain [ R10.13], Nausea and vomiting, unspecified vomiting type [R11.2], Pre-op exam [Z01.818] Start: 09-18-2024 [facility] Start: 09-15-2024 End: 09-15-2024 Anesthesia consultation 09/15/2024 8:00 AM EST PAT Pre Anesthesia [address] [place] [address] 2, Pacc Main [address] [place] [address] preop/ lap hernia repair 09/20/2024 Pre Anesthesia Comment on above: preop/ lap hernia repair 09/20/2024 Start: 09-14-2024 End: 09-14-2024 ambulatory 09/14/2024 3:00 PM EST Results Only [facility] [address] [place] [address] Hiatal hernia [K44.9]. Epigastric pain [R10.13]. Nausea and vomiting, unspecified vomiting type [R11.2]. Pre-op exam [Z01.818] [facility] Comment on above: Hiatal hernia [K44.9]. Epigastric pain [ R10.13]. Nausea and vomiting, unspecified vomiting type [R11.2]. Pre-op exam [Z01.818] Start: 09-14-2024 End: 09-14-2024 Anesthesia consultation 09/14/2024 2:00 PM EST PAT [facility] [address] [facility] [place] [address] 1, Pacc Rafita [address] [place] [address] preop/ lap hernia repair 09/20/2024 Pre Anesthesia Comment on above: preop/ lap hernia repair 09/20/2024 Start: 09-14-2024 End: 12-14-2024 LIPID PANEL, NONFASTING [facility] Work Phone: Comment on above: Expected: 09/14/2024, Expires: Start: 09-13-2024 End: 09-13-2024 Patient encounter procedure Gastroenterology Comment on above: Dilated pancreatic duct [K86.89], severe dilation of CBD Start: 09-10-2024 End: 09-10-2024 ambulatory Neurology Comment on above: R PN r R PN Start: 09-07-2024 End: 09-07-2024 Patient encounter procedure 09/07/2024 9:30 AM EST Appointment Radiology [address] [place] [address] Procedure: MRI PANC/MAGNOLIA WO/W IVCON Radiology Comment on above: Procedure: MRI PANC/MAGNOLIA WO/W IVCON Start: 09-03-2024 End: 09-03-2025 CBC W Auto Differential panel - Blood COMPLETE BLOOD COUNT AND DIFFERENTIAL Lab Routine Hiatal hernia Epigastric pain Nausea and vomiting, unspecified vomiting type Pre-op exam Expected: 09/03/2024, Expires: 09/03/2025 [facility] Comment on above: Expected: 09/03/2024, Expires: Start: 09-03-2024 End: 09-03-2025 Comprehensive metabolic 2000 panel - Serum or Plasma COMPREHENSIVE METABOLIC PANEL Lab Routine Hiatal hernia Epigastric pain Nausea and vomiting, unspecified vomiting type Pre-op exam Expected: 09/03/2024, Expires: 09/03/2025 [facility] Work Phone: Comment on above: Expected: 09/03/2024, Expires: Start: 09-03-2024 End: 09-03-2025 CONFIRM BLOOD TYPE CONFIRM BLOOD TYPE Blood Bank Routine Hiatal hernia Epigastric pain Nausea and vomiting, unspecified vomiting type Pre-op exam Expected: 09/03/2024, Expires: 09/03/2025 [facility] Comment on above: Expected: 09/03/2024, Expires: Start: 09-03-2024 End: 09-03-2024 Patient encounter procedure 09/03/2024 2:00 PM EST Office Visit General Surgery [address] [place] [address] Anila De Paz MD [address] [place], [place] [phone] Follow-up/ Pre-op PEHR/ completed EGD, CT ABD, [...] type Pre-op exam Expected: 09/03/2024, Expires: 12/03/2024 [facility] Comment on above: Expected: 09/03/2024, Expires: Start: 08-25-2024 End: 08-25-2024 Patient encounter procedure 08/25/2024 3:30 PM EST Office Visit Vascular Surgery [address] [address] Carotid bruit, unspecified laterality [R09.89] Vascular Surgery Comment on above: Carotid bruit, unspecified laterality [R 09.89] Start: 08-18-2024 Advance Directive Discussion Advance Directive Discussion [facility] Start: 08-09-2024 End: 08-09-2024 ambulatory 08/09/2024 4:00 PM EST Results Only [facility] [address] [place] [address] [facility] Start: 08-06-2024 End: 11-05-2024 CBC panel - Blood by Automated count COMPLETE BLOOD COUNT Lab Routine Neuropathy Expected: 08/06/2024, Expires: 11/05/2024 [facility] Comment on above: Expected: 08/06/2024, Expires: Start: 08-06-2024 End: 11-05-2024 Cobalamin (Vitamin B12) [Mass/volume] in Serum or Plasma VITAMIN B12 Lab Routine Neuropathy Expected: 08/06/2024, Expires: 11/05/2024 [facility] Comment on above: Expected: 08/06/2024, Expires: Start: 08-06-2024 End: 11-05-2024 Comprehensive metabolic 2000 panel - Serum or Plasma COMPREHENSIVE METABOLIC PANEL Lab Routine Neuropathy Expected: 08/06/2024, Expires: 11/05/2024 [facility] Comment on above: Expected: 08/06/2024, Expires: Start: 08-06-2024 End: 11-05-2024 PROTEIN ELECTROPHORESIS SERUM W/INTERP PROTEIN ELECTROPHORESIS SERUM W/INTERP Lab Routine Paresthesia of both feet Expected: 08/06/2024, Expires: 11/05/2024 [facility] Comment on above: Expected: 08/06/2024, Expires: Start: 08-06-2024 End: 11-05-2024 Pyridoxine [Mass/volume] in Serum or Plasma VITAMIN B6/PYRIDOXIN Lab Routine Neuropathy Expected: 08/06/2024, Expires: 11/05/2024 [facility] Comment on above: Expected: 08/06/2024, Expires: Start: 08-06-2024 End: 11-05-2024 VITAMIN B1 (THIAMINE), WHOLE BLOOD VITAMIN B1 (THIAMINE), WHOLE BLOOD Lab Routine Neuropathy Expected: 08/06/2024, Expires: 11/05/2024 [facility] Comment on above: Expected: 08/06/2024, Expires: Start: 08-06-2024 End: 08-06-2024 Patient encounter procedure 08/06/2024 10:00 AM EST Office Visit Neurology [address] [place] [address] [place] [id number] Denice Jacobs PA-C [address] [place], [place] [phone] Paresthesia of both feet [R20.2] Neurology Comment on above: Paresthesia of both feet [R20.2] Start: 08-03-2024 End: 08-03-2024 Patient encounter procedure 08/03/2024 3:30 PM EST Office Visit Cardiology [address] [place] [address] [place] [address] [place] [address] H/O acute myocardial infarction [I25.2]; Cardiomyopathy, unspecified type (HCC) [I42.9]; Pre-op evaluation [Z01.818] Cardiology Comment on above: H/O acute myocardial infarction [I25.2]; Cardiomyopathy, unspecified type (HCC) [I42.9]; Pre-op evaluation [Z01.818] Start: 08-02-2024 End: 08-02-2024 Patient encounter procedure 08/02/2024 2:15 PM EST Office Visit [facility] Ophthalmology [address] [place] [address] Humza Camejo MD [address] [place] [address] Return in about 3 months (around 08/02/2024). Ophthalmology Comment on above: Return in about 3 months (around 024). Start: 07-21-2024 End: 07-21-2024 Patient encounter procedure Gastroenterology Comment on above: EGD MAC Start: 07-16-2024 End: 07-16-2024 Anesthesia consultation 07/16/2024 3:00 PM EST PAT Pre Anesthesia [address] [place] [address] 1, Pacc Rafita [address] [place] [address] pre op 07/21 Pre Anesthesia Comment on above: pre op 07/21 Start: 07-09-2024 End: 07-09-2024 Patient encounter procedure 07/09/2024 11:20 AM EST Office Visit Cardiology [address] [place] [address] H/O acute myocardial infarction [I25.2]; Cardiomyopathy, unspecified type (HCC) [I42.9]; Pre-op evaluation [Z01.818] Cardiology Comment on above: H/O acute myocardial infarction [I25.2]; Cardiomyopathy, unspecified type (HCC) [I42.9]; Pre-op evaluation [Z01.818] Start: 07-01-2024 End: 07-01-2024 Patient encounter procedure 07/01/2024 1:45 PM EST Office Visit Neurology [address] [address] Laisha Lizarraga, ROSMERY.ADMINISTRATIVE [employer]LES [address] [place] [address] F/U Neurology Comment on above: F/U Start: 06-18-2024 End: 09-17-2024 CREATININE BLD CREATININE BLD Lab Routine Hiatal hernia Expected: 06/18/2024, Expires: 09/17/2024 [facility] Comment on above: Expected: 06/18/2024, Expires: Start: 06-18-2024 End: 06-18-2024 Patient encounter procedure General Surgery Comment on above: New consult pt of Dr Squires Large Hiata l hernia on recent CT Gerd, frail, needs EGD Hiatal Hernia referr al from Dr. Squires/ HX: TIA, seizures, Dementia, asthma, NH, HTN, HLD, DVT, CA, GERD, SX: VHR, appy, Frail / CT ABD: R inguinal hernia (stable, LARGE hiatal hernia, dilated bile duct / NEEDS: EGD Start: 06-04-2024 End: 06-04-2024 Patient encounter procedure 06/04/2024 9:50 AM EDT Office Visit General Surgery [address] [phone] Laisha Sheppard MD [address] [place] [address] Hiatal hernia [K44.9] General Surgery Comment on above: Hiatal hernia [K44.9] Start: 05-17-2024 End: 05-17-2024 Patient encounter procedure 05/17/2024 3:00 PM EDT Office Visit General Surgery [address] [place] [address] Susan Squires MD [address] [place], [place] [phone] hernia General Surgery Comment on above: hernia Start: 05-03-2024 End: 05-03-2024 Patient encounter procedure 05/03/2024 2:00 PM EDT Office Visit [facility] Ophthalmology [address] [place] [address] Humza Camejo MD [address] [place] [address] Return in about 6 months (around 04/28/2024). Ophthalmology Comment on above: Return in about 6 months (around 04/28/20 24). Start: 04-18-2024 Covid-19 Vaccine () Covid-19 Vaccine () [facility] Start: 04-18-2024 Covid-19 Vaccine () Covid-19 Vaccine () [facility] Start: 04-18-2024 Influenza vaccination [facility] Start: 03-25-2024 End: 03-25-2024 Patient encounter procedure 03/25/2024 1:45 PM EDT Office Visit Neurology [address] [address] Laisha Lizarraga, ROSMERY.ADMINISTRATIVE [employer] [address] [place] [address] [facility] Follow Up Neurology Comment on above: [facility] Follow Up Start: 08-18-2023 Advance Directive Discussion Advance Directive Discussion [facility] Start: 05-08-2023 Diabetes Screening Diabetes Screening [facility] Start: 04-18-2023 Covid-19 Vaccine () Covid-19 Vaccine () [facility] Start: 04-18-2023 Covid-19 Vaccine () Covid-19 Vaccine () [facility] Start: 04-18-2023 Influenza vaccination [facility] Start: 01-17-2023 Radiography of thoracic spine Thoracic Spine 3 Views [facility] Start: 01-17-2023 XR Thoracic spine 3 Views [facility] Start: 01-17-2023 X-ray of lumbar spine, two or three views Lumbar Spine 2 or 3 Views [facility] Start: 01-17-2023 XR Lumbar spine 2 or 3 Views [facility] Start: 01-02-2023 Patient referral [facility] Work Phone: Start: 08-18-2022 ADVANCE DIRECTIVE DISCUSSION ADVANCE DIRECTIVE DISCUSSION [facility] Start: 04-18-2022 Influenza vaccination INFLUENZA (#1) [facility] Start: 02-25-2022 Methylmalonate measurement [facility] Work Phone: Start: 02-15-2022 [facility] Work Phone: Start: 09-22-2021 COVID-19 VACCINE (4 - Booster for Pfizer series) COVID-19 VACCINE (4 - Booster for Pfizer series) [facility] Start: 08-18-2021 ADVANCE DIRECTIVE DISCUSSION ADVANCE DIRECTIVE DISCUSSION [facility] Start: 07-17-2021 COVID-19 VACCINE (4 - Booster for Pfizer series) COVID-19 VACCINE (4 - Booster for Pfizer series) [facility] Start: 07-17-2021 COVID-19 VACCINE (4 - Pfizer series) COVID-19 VACCINE (4 - Pfizer series) [facility] Start: 12-01-2020 Screening for osteoporosis Bone Density Screening [facility] Start: 2017 RSV Vaccine (1 - 1-dose 75+ series) RSV Vaccine (1 - 1-dose 75+ series) [facility] Start: 2007 BONE DENSITY BONE DENSITY [facility] Start: 2007 Bone Density Screening Bone Density Screening [facility] Start: 2007 Pneumococcal Vaccine: 65+ (1 - PCV) Pneumococcal Vaccine: 65+ (1 - PCV) [facility] Start: 2007 PNEUMOCOCCAL: 65+ (1 - PCV) PNEUMOCOCCAL: 65+ (1 - PCV) [facility] Start: 2007 PNEUMOVAX AGE 65 AND OVER WITH 5YR LOOKBACK (#1) PNEUMOVAX AGE 65 AND OVER WITH 5YR LOOKBACK (#1) [facility] Start: 2002 RSV Vaccine (1 - 1-dose 60+ series) RSV Vaccine (1 - 1-dose 60+ series) [facility] Start: 1992 SHINGRIX VACCINE (1 of 2) SHINGRIX VACCINE (1 of 2) [facility] Start: 1987 DIABETES SCREEN DIABETES SCREEN [facility] Start: 1987 Diabetes Screening Diabetes Screening [facility] Start: 1987 Screening for malignant neoplasm of colon [facility] Start: 1961 Urine microalbumin profile [facility] Start: 1960 Hepatitis B surface antibody level LDL Cholesterol [facility] Start: 1960 Screening for malignant neoplasm of colon [facility] Bacteria identified in Urine by Culture Urine Culture [facility] Work Phone: End: 07-18-2025 CT Abdomen and Pelvis W contrast IV CT ABD/PEL W IVCON Radiology Routine Hiatal hernia 1 Occurrences starting 06/18/2024 until 07/18/2025 [facility] Comment on above: 1 Occurrences starting 06/18/2024 until 07/18/2025 End: 12-02-2025 CT Abdomen and Pelvis W contrast IV CT ABD/PEL W IVCON Radiology Routine Nausea 1 Occurrences starting 11/02/2024 until 12/02/2025 [facility] Work Phone: Comment on above: 1 Occurrences starting 11/02/2024 until 12/02/2025 CT Abdomen and Pelvi s W contrast IV CT ABD/PEL W IVCON Radiology Routine Nausea 11/11/2024 1:55 PM EDT [facility] Work Phone: End: 07-18-2025 CT Chest W contrast IV CT CHEST W IVCON Radiology Routine Hiatal hernia 1 Occurrences starting 06/18/2024 until 07/18/2025 [facility] Comment on above: 1 Occurrences starting 06/18/2024 until 07/18/2025 CT Chest W contrast IV CT CHEST W IVCON Radiology Routine Hiatal hernia 06/24/2024 3:12 PM EST [facility] Work Phone: ECG COMPLETE ECG COMPLETE ECG 08/03/2024 3:41 PM EST [facility] End: 06-18-2025 Echocardiography ECHO Cardiology Routine H/O acute myocardial infarction Cardiomyopathy, unspecified type (HCC) Pre-op evaluation 1 Occurrences starting 06/18/2024 until 06/18/2025 [facility] Work Phone: Comment on above: 1 Occurrences starting 06/18/2024 until 06/18/2025 End: 09-08-2025 EGD - THERAPEUTIC, EUS, OR TUBE INTERVENTIONS EGD - THERAPEUTIC, EUS, OR TUBE INTERVENTIONS Endoscopy Routine Dilated pancreatic duct 1 Occurrences starting 09/08/2024 until 09/08/2025 [facility] Work Phone: Comment on above: 1 Occurrences starting 09/08/2024 until 09/08/2025 End: 06-18-2025 EGD DIAGNOSTIC EGD DIAGNOSTIC Endoscopy Routine Hiatal hernia 1 Occurrences starting 06/18/2024 until 06/18/2025 [facility] Work Phone: Comment on above: 1 Occurrences starting 06/18/2024 until 06/18/2025 End: 08-06-2025 EMG(NEURO/NI) EMG(NEURO/NI) EMG Routine Neuropathy 1 Occurrences starting 08/06/2024 until 08/06/2025 [facility] Work Phone: Comment on above: 1 Occurrences starting 08/06/2024 until 08/06/2025 Lipid 1996 panel - S des or Plasma [facility] Work Phone: Lipid 1996 panel - S des or Plasma [facility] Measurement of respiratory function [facility] Methylmalonate measurement [facility] Work Phone: End: 10-03-2025 MR Biliary ducts and Pancreatic duct WO and W contrast IV MRI PANC/MAGNOLIA WO/W IVCON Radiology Routine Abnormal results of liver function studies 1 Occurrences starting 09/03/2024 until 10/03/2025 [facility] Work Phone: Comment on above: 1 Occurrences starting 09/03/2024 until 10/03/2025 End: 10-03-2025 MR Unspecified body region 3D post processing MRI 3D POST PROCESSING Radiology Routine Abnormal results of liver function studies 1 Occurrences starting 09/03/2024 until 10/03/2025 [facility] Comment on above: 1 Occurrences starting 09/03/2024 until 10/03/2025 End: 12-13-2023 MRI 3D POST PROCESSING MRI 3D POST PROCESSING Radiology Routine 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) 1 Occurrences starting 11/13/2022 until 12/13/2023 [facility] Work Phone: Comment on above: 1 Occurrences starting 11/13/2022 until 12/13/2023 End: 12-13-2023 MRI BRAIN W QUANT WO IVCON MRI BRAIN W QUANT WO IVCON Radiology Routine 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) 1 Occurrences starting 11/13/2022 until 12/13/2023 [facility] Work Phone: Comment on above: 1 Occurrences starting 11/13/2022 until 12/13/2023 NEUROMUSCULAR ULTRASOUND/NEUROLOGY NEUROMUSCULAR ULTRASOUND/NEUROLOGY Procedures Routine Ulnar neuropathy of right upper extremity Ordered: 11/03/2024 [facility] Work Phone: Comment on above: Ordered: 11/03/2024 Patient Education [facility] Work Phone: Patient referral [facility] Work Phone: Polysomnography [facility] REFER FOR ADMIT INTERVIEW REFER FOR ADMIT INTERVIEW Procedures Routine Hiatal hernia Epigastric pain Nausea and vomiting, unspecified vomiting type Pre-op exam Ordered: 09/03/2024 [facility] Comment on above: Ordered: 09/03/2024 US Breast limited [facility] US Carotid arteries [facility] End: 08-03-2025 US Carotid arteries - bilateral US CAROTID ARTERIES [facility] V[facility] Lab Routine Carotid bruit, unspecified laterality 1 Occurrences starting 08/03/2024 until 08/03/2025 [facility] Work Phone: Comment on above: 1 Occurrences starting 08/03/2024 until 08/03/2025 End: 12-20-2025 US Carotid arteries - bilateral US CAROTID ARTERIES [facility] Vascular Lab Routine Carotid bruit, unspecified laterality 1 Occurrences starting 12/20/2024 until 12/20/2025 [facility] Work Phone: Comment on above: 1 Occurrences starting 12/20/2024 until 12/20/2025 [facility] Immunizations Immunization Date Immunization Notes Care Provider Tootie gaines 12-19-2024 TD(adult) unspecifie d formulation Young VALENCIA Work Phone: [facility] Work Phone: 12-19-2024 tetanus and diphther ia toxoids, adsorbed, preservative free, for adult use (5 Lf of tetanus toxoid and 2 Lf of diphtheria toxoid) Young VALENCIA Work Phone: [facility] 04-27-2024 Seasonal trivalent influenza vaccine, adjuvanted, preservative free Denice Jacobs PA-C Work Phone: [facility] 05-22-2023 influenza, injectabl e, quadrivalent, preservative free Dr. Chema Perry Work Phone: [facility] 05-22-2023 influenza virus vacc ine, unspecified formulation Laisha Lizarraga APRN.ADMINISTRATIVE JOB TITLES Work Phone: [facility] 05-20-2022 influenza (aIIV4) vaccine, age 65+ yr, quadrivalent, PF (FLUAD QUAD) Denice Jacobs PA-C Work Phone: [facility] 05-20-2022 influenza virus vacc ine, unspecified formulation Laisha Lizarraga APRN.ADMINISTRATIVE JOB TITLES Work Phone: [facility] 05-18-[address] Arun Ramos Work Phone: [facility] 05-18-2021 influenza-bonnie H5 v irus vaccine, unspecified formulation Denice Jacobs PA-C Work Phone: [facility] 04-10-2021 influenza, injectabl e, quadrivalent, contains preservative Denice Jacobs PA-C Work Phone: [facility] 02-17-2021 pneumococcal polysaccharide vaccine, 23 valent Denice Jacobs PA-C Work Phone: [facility] 02-17-[address] Arun Ramos Work Phone: [facility] Work Phone: 02-17-2021 pneumococcal vaccine , unspecified formulation Dr. Arun Ramos Work Phone: [facility] 10-28-2020 COVID-19 vaccine, ag e 12+ yr (PFIZER-BIONTECH - PURPLE TOP) Laisha Lizarraga MEAL ROOM HAND.ADMINISTRATIVE JOB TITLES Work Phone: [facility] 10-07-2020 COVID-19 vaccine, ag e 12+ yr (PFIZER-BIONTECH - PURPLE TOP) Laisha Lizarraga APRN.ADMINISTRATIVE JOB TITLES Work Phone: [facility] Work Phone: 05-10-2020 influenza virus vacc ine, unspecified formulation Denice Queener PA-C Work Phone: [facility] 07-13-2019 zoster vaccine recombinant Denice Queener PA-C Work Phone: [facility] 05-13-2019 influenza virus vacc ine, unspecified formulation Denice Queener PA-C Work Phone: [facility] 05-13-2019 influenza, high dose seasonal, preservative-free Denice Queener PA-C Work Phone: [facility] 05-13-2019 zoster vaccine recombinant Denice Queener PA-C Work Phone: [facility] 01-05-2019 tetanus toxoid, redu long diphtheria toxoid, and acellular pertussis vaccine, adsorbed Denice Queener PA-C Work Phone: [facility] 06-24-2018 pneumococcal polysaccharide vaccine, 23 valent Denice Queener PA-C Work Phone: [facility] 05-21-2018 influenza virus vacc ine, unspecified formulation Denice Queener PA-C Work Phone: [facility] 05-21-2018 Seasonal trivalent influenza vaccine, adjuvanted, preservative free Denice Queener PA-C Work Phone: [facility] 05-18-2018 influenza virus vacc ine, unspecified formulation Denice Queener PA-C Work Phone: [facility] 05-31-2017 influenza virus vacc ine, unspecified formulation Denice Queener PA-C Work Phone: [facility] 05-31-2017 influenza, high dose seasonal, preservative-free Denice Queener PA-C Work Phone: [facility] 05-31-2017 pneumococcal conjuga te vaccine, 13 valent Denice Queener PA-C Work Phone: [facility] 05-01-2016 influenza virus vacc ine, unspecified formulation Denice Queener PA-C Work Phone: [facility] 05-02-2015 influenza virus vacc ine, unspecified formulation Denice Queener PA-C Work Phone: [facility] 10-31-2014 pneumococcal conjuga te vaccine, 13 valent Denice Queener PA-C Work Phone: [facility] 05-13-2014 influenza virus vacc ine, unspecified formulation Denice Queener PA-C Work Phone: [facility] 05-13-2014 influenza, seasonal, injectable, preservative free Denice Queener PA-C Work Phone: [facility] 05-27-2013 influenza virus vacc ine, unspecified formulation Denice Queener PA-C Work Phone: [facility] 05-16-2011 influenza virus vacc ine, unspecified formulation Denice Queener PA-C Work Phone: [facility] 05-16-2011 influenza, seasonal, injectable, preservative free Denice Queener PA-C Work Phone: [facility] 06-18-2010 influenza virus vacc ine, unspecified formulation Denice Queener PA-C Work Phone: [facility] 06-18-2010 influenza, seasonal, injectable, preservative free Denice Queener PA-C Work Phone: [facility] 03-22-2010 pneumococcal polysaccharide vaccine, 23 valent Denice Queener PA-C Work Phone: [facility] 03-22-2010 tetanus and diphther ia toxoids, adsorbed, preservative free, for adult use (5 Lf of tetanus toxoid and 2 Lf of diphtheria toxoid) Denice Jacobs PA-C Work Phone: [facility] 03-22-2010 tetanus toxoid, redu long diphtheria toxoid, and acellular pertussis vaccine, adsorbed Denice Jacobs PA-C Work Phone: [facility] 06-06-2009 influenza virus vacc ine, unspecified formulation Denice Jacobs PA-C Work Phone: [facility] 06-06-2009 influenza, seasonal, injectable, preservative free eDnice Jacobs PA-C Work Phone: [facility] Payers Date Payer Category Payer Self-pay [id number] 2019 Unknown [id number] 2015 Unknown [id number] .[id number] 2014 Private Health Insurance [facility] [employer] [id number] 2014-Present [phone] [address] [address] [place] [address] PPO [id number] .[id number] 2014 Private Health Insurance [id number] .[id number] 2007 Medicare MEDICARE MEDICAR E A AND B [id number] 2007-Present [phone] [address] [address] [place] [address] Medicare [id number] .[id number] 2007 Medicare [id number]. 1.13.159 .2.7.3.387010.315 2007 Medicare [id number] Medicare [id number] Medicare MEDICARE PART A B [id number] Unknown [id number] 2.16.840.1.361507.3.579 .2.462 Unknown [id number] 2.16.840.1.939707.3.579 .2.462 Unknown [id number] 2.16.840.1.466777.3.579 .2.462 Unknown [id number] 2.16.840.1.466499.3.579 .2.462 Unknown [id number] 2.840.1.558385.3.579 .2.462 Unknown [id number] 2.16.840.1.308675.3.579 .2.462 Unknown [id number] 2.16.840.1.607127.3.579 .2.462 Unknown [id number] 2.16.840.1.660294.3.579 .2.462 Unknown [id number] 2.16.840.1.021424.3.579 .2.462 Unknown [id number] 2.16.840.1.871076.3.579 .2.462 Unknown [id number] 2.16.840.1.933064.3.579 .2.462 Unknown [id number] 2.16.840.1.044411.3.579 .2.462 Unknown [id number] 2.16.840.1.622587.3.579 .2.462 Unknown [id number] 2.16.840.1.408924.3.579 .2.462 Unknown [id number] 2.16.840.1.782712.3.579 .2.462 Unknown [id number] 2.16.840.1.909087.3.579 .2.462 Unknown [id number] 2.16.840.1.154016.3.579 .2.462 Unknown [id number] 2.16.840.1.683851.3.579 .2.462 Unknown [id number] 2.16840.1.129405.3.579 .2.462 Unknown [id number] 2.16.840.1.748157.3.579 .2.462 Unknown [id number] 2.840.1.336012.3.579 .2.462 Unknown [id number] 2.840.1.751239.3.579 .2.462 Unknown [id number] 2.840.1.562507.3.579 .2.462 Unknown [id number] 2.840.1.525203.3.579 .2.462 Unknown [id number] 2.840.1.092595.3.579 .2.462 Unknown [id number] 2.840.1.453526.3.579 .2.462 Unknown [id number] 2.840.1.475026.3.579 .2.462 Unknown [id number] 2.840.1.896549.3.579 .2.462 Unknown [id number] 2.840.1.788221.3.579 .2.462 Unknown [id number] 2.840.1.686385.3.579 .2.462 Unknown [id number] 2.16.840.1.554953.3.579 .2.462 Unknown [id number] 2.840.1.333777.3.579 .2.462 Unknown [id number] 2.16840.1.949220.3.579 .2.462 Unknown [id number] 2.16840.1.767194.3.579 .2.462 Social History Date Type Detail Facility Start: 10-25-2020 End: 02-03-2025 Tobacco smoking status NHIS Never smoked tobacco [facility] Start: 10-25-2020 End: 07-25-2022 Tobacco use and exposure Smokeless tobacco non-user [facility] Start: 11-13-2021 End: 09-13-2024 Alcohol intake Current drinker of alcohol (finding) [facility] Start: 10-25-2020 History SDOH Alcohol Comment Weekly 1-2 drinks [facility] Start: 1940 Sex Assigned At Female C [facility] Start: 11-03-2021 End: 04-11-2022 Exposure to SARS-CoV-2 (event) Not sure [facility] Start: 11-07-2021 End: 11-12-2023 Tobacco smoking status NHIS Unknown if ever smoked [facility] Start: 10-07-2020 Spouse/ Signif icant Other [facility] Start: 03-14-2023 End: 11-16-2024 History of Social function [facility] Start: 03-14-2023 End: 11-16-2024 Tobacco use panel [facility] Adult Depression Screening Assessment 0 [facility] Start: 08-08-2020 Gender identity Identifies as female gender (finding) [facility] Start: 08-08-2020 Sexual orientation Heterosexual (fin ding) [facility] Start: 09-14-2024 End: 12-23-2024 Alcoholic beverage intake Ex-drinker (finding) [facility] Has the [employer], [employer], or water [employer] threatened to shut off services in your home in past 12Mo No [facility] Work Phone: (I/We) worried luke er (my/our) food would run out before (I/we) got money to buy more. Never true [facility] Start: 10-29-2024 End: 11-15-2024 Sex Female (finding) [facility] Functional Status Date Assessment Result Facility 11-17-2024 Are you deaf, or do you have serious difficulty hearing No 11/17/2024 12:03 PM Merlene Ojeda RN No [facility] 11-17-2024 Are you blind, or do you have serious difficulty seeing, even when wearing glasses No 11/17/2024 12:03 PM EDMerlene Rose, MAN No [facility] 11-17-2024 Do you have serious difficulty walking or climbing stairs No 11/17/2024 12:03 PM EDT Merlene Bailey, MAN No [facility] 11-17-2024 Do you have difficul ty dressing or bathing No 11/17/2024 12:03 PM EDT Merlene Bailey, MAN No [facility] 11-17-2024 Because of a physica l, mental, or emotional condition, do you have difficulty doing errands alone such as visiting a physician's office or shopping No 11/17/2024 12:03 PM EDMerlene Rose, MAN No [facility] 10-08-2021 Functional status Chair [facility] Work Phone: 10-02-2021 Functional status Activity Abili ty Unable to Assess [facility] Work Phone: 09-28-2021 Functional status Patient Activity Chair [facility] Work Phone: 09-04-2021 Functional status Bedside Commode [facility] Work Phone: Mental Status Date Assessment Result Facility 11-17-2024 Because of a physica l, mental, or emotional condition, do you have serious difficulty concentrating, remembering, or making decisions No 11/17/2024 12:03 PM EDMerlene Rose, MAN No [facility] 02-15-2022 Cognitive function Awake;Alert;A ppropriate; Follows Commands [facility] Work Phone: 10-08-2021 Cognitive function Appropriate;Cooperativ e [facility] Work Phone: 10-04-2021 Cognitive function Voice/Name [facility] Work Phone: 09-04-2021 Cognitive function Fearful [facility] Work Phone: Clinical Notes 11-13-2021 to 02-03-2025 Telephone Encounter - Dung, Qarab Elieser, MD - 12/24/2024 2:58 PM EDTTelephone Encounter - Sourav Marcial MD - 12/24/2024 2:58 PM EDTPatient InstructionsPatient InstructionsPatient Instructions Note Date & Type Note Facility 02-03-2025 Discharge summary [facility] 02-03-2025 Radiology Diagnostic study note [facility] Imaging Services [address] [place], [place] [address] Extremity Upper without Contra MR#: [id number] Acct: [id number] Name: LAUREN ALCARAZ Rep #: [id number] : 1940 F 84 From: Rodrigue Pritchard MD PCP: Dr. Chema Perry MD Status: REG ER Study:Extremity Upper without Contra Date of Exam: 02/03/25 Exam# [id number] Ordering Dr: Radha Bustamante DO PROCEDURE: EXTREMITY [...] changes of the humeral head. [facility] CC: Dr. Chema Perry MD; Isma Bustamante DO ~ Insurance Assistant: Signed [facility] 02-03-2025 Radiology Diagnostic study note [facility] Imaging Services [address] [place], [place] [address] Shoulder min 2 Views MR#: [id number] Acct: [id number] Name: LAUREN ALCARAZ Rep #: [id number] : 1940 F 84 From: Rodrigue Pritchard MD PCP: Dr. Chema Perry MD Status: [facility] ER Study:Shoulder min 2 Views Date of Exam: 02/03/25 Exam# [id number] Ordering Dr: Radha Bustamante DO PROCEDURE: SHOULDER [...] changes of the humeral head. [facility] CC: Dr. Chema Perry MD; Isma Bustamante DO ~ Insurance Assistant: Signed [facility] 01-05-2025 Note [facility] 12-24-2024 Telephone encounter Note Yes, I will switch you back to furosemide [address] of torsemide. [facility] 12-24-2024 Miscellaneous Notes Yes, I will switch [...] to her pulmonary embolus. FOV: 12/20/2025- ALBERT Guadlaupe Forward to Dr. Marcial. Please advise. documented in this encounter [facility] 12-24-2024 Telephone encounter Note SHELIA; 12/20/2024- Dung [...] Guadalupe Forward to Dr. Marcial. Please advise. [facility] 12-23-2024 Instructions Laisha Lizarraga APRN.ALBERT - 12/23/2024 3:18 PM EDT Continue to participate in physical activity and be cogntiively and socially engaged and active 2. Please schedule Cognitive/Speech Therapy sessions- by calling [phone]. I know there are therapists in the [place] area 3. Can consider getting back into OT later if you need a refresher 4. Can discuss with Dr. Logan re: potentially increasing the gabapentin dose for the neuropathy / RLS For now, I will increase this to 200mg daily. I would like Dr. Logan to later consider taking over refills of this medication. 5. Consider asking the Heel Seat Filler about your R eyelid ptosis, I am not sure that there is a clear neurological cause for this. Follow up in ~3 months documented in this encounter [facility] 12-23-2024 History of Present illness Narrative Images from the original note were not included. Lauren Alcaraz 1940 [address] [facility] [address] [facility] [address] December 23, 2024 [place] [facility] FOLLOW-UP NOTE Accompanied by: [...] vs other . Also ask your home aed trainer about a device for this as [...] twice daily. She plans to see her restaurant hospitality manager after returning from vacation and inquires about [...] 1,000 mcg intramuscularly once every month. Vitamin Z-79-bqqcjxwdzsliwk ammonium lactate (LAC-HYDRIN) 12 % lotion MULTIVITAMIN [...] from 2007 DATE: June 15, 2008 NO: [id number] Indication: Question of seizure Medications: None given [...] Please schedule Cognitive/Speech Therapy sessions- by calling [phone]. I know there are therapists in the [place] area 3. Can consider getting back into OT later if you need a refresher 4. Can discuss with Dr. Logan re: potentially increasing the gabapentin dose for the neuropathy / RLS For now, I will increase this to 200mg daily. I would like Dr. Logan to later consider taking over refills of this medication. 5. Consider asking the Heel Seat Filler about your R eyelid ptosis, I am not sure that there is a clear neurological cause for this. Follow up in ~3 months I spent a total of 40 minutes on the date of service which included [id number] patient care and counseling and educating the patient/spouse. Laisha Lizarraga, MSN, DANCE ENTERTAINER-C, CNRN CC: 1. No primary care provider on file., (fax) None documented in this encounter [facility] 12-23-2024 Note [facility] 12-20-2024 Instructions Sourav Marcial MD - 12/20/2024 [...] These stockings can be purchased at most drugsUS Emergency Operations Centeres. Ask your doctor about limiting your salt [...] only one limb. documented in this encounter [facility] 12-20-2024 History of Present illness Narrative Images from the original note were not included. Heart and Vascular [facility] Justus Saravia Department of Cardiovascular Medicine SECTION OF [facility] CARDIOLOGY [facility] December 21, 2023 OUTPATIENT VISIT TYPE [...] Arthritis Asthma (HCC) Atherosclerotic heart disease of [place] coronary artery without angina pectoris Autoimmune disorder [...] 1,000 mcg intramuscularly once every month. Vitamin H-71-zkjesstwutumwc ammonium lactate (LAC-HYDRIN) 12 % lotion MULTIVITAMIN [...] 74 - 99 mg/dL Final Comment: The [place] Diabetes Association (ADA) provides guidance for cutoff [...] Standards of Medical Care in Diabetes 2016, [place] Diabetes Association. Diabetes Care. 2016.39(Suppl 1). BUN [...] with VKA drugs, such as warfarin, the [place] College of Chest Physicians 2012 Guideline recommends [...] Chest 2012, 141:7S-47S Yakov RA, et al. [facility] 2017, 70: 252-289 Cardiovascular Testing: I reviewed personally. I have personally reviewed the Electrocardiogram, Chest X-ray, Laboratory Testing Carotid Doppler done on November 26, 2023 shows less than 50% stenosis with mild plaque disease [facility] nuclear SPECT scan done on May 2023 also shows normal LV function with no evidence of ischemia ejection fraction of 89%. However, it was done with 69% of maximal Peritrate heart rate obtained. Echocardiogram done in [facility] on 09 July 2024 shows normal LV function with ejection fraction of 59%, 2+ tricuspid regurgitation with right ventricular systolic pressure of 59 mmHg. 08/03/2024 EKG showed normal sinus rhythm with old inferior wall NH and poor R wave progression with no [...] low fat diet. Sourav Marcial MD, FACC. Boiler Tender, Dept of Cardiology and Medicine, [facility]. Pharmacist Manager of Ambulatory Cardiology, [facility]. Pharmacist Manager of Cardiac Catheterization laboratory, [facility]. Clinical Asst. security tester, [facility] of [facility] and [facility] Staff Flower Cutter, Heart, Vascular and Thoracic Bard, [facility]. documented in this encounter [facility] 12-20-2024 Note [facility] 12-19-2024 Note [facility] 12-19-2024 History of Present illness Narrative RAFITA [...] Arthritis Asthma (HCC) Atherosclerotic heart disease of [place] coronary artery without angina pectoris Autoimmune disorder [...] 1,000 mcg intramuscularly once every month. Vitamin G-37-encqpqsuxaszmk MULTIVITAMIN ORAL Take 1 tablet by mouth [...] was discharged. Procedures documented in this encounter [facility] 12-16-2024 Telephone encounter Note Called and spoke [...] Sending to Dr. Marcial for FYI only. [facility] 12-16-2024 Miscellaneous Notes Called and spoke with [...] Next OV 02/01/25 documented in this encounter [facility] 12-16-2024 Telephone encounter Note Uncertain why PCP would change the dose. In the future she could obtain refills from the PCP Joan Guadalupe APRN.ADMINISTRATIVE JOB TITLES [facility] 12-16-2024 Telephone encounter Note Last Rx sent 08/03/24 with refills to last one year. Spoke with pharmacy staff. They said PCP (non-[facility]) prescribed one month of this medication with no refills which cancelled our Dr Marcial's prescription. Please advise if patient should have PCP continue prescribing. Last OV 08/03/24 Next OV 02/01/25 [facility] 12-09-2024 Note [facility] 12-03-2024 Note [facility] 12-03-2024 History of Present illness Narrative Name: [...] 2024 11:31 AM documented in this encounter [facility] 11-26-2024 Note HNO ID: [id number] Author: RADHA STREET, OTR/L Service: ? Author [...] and treatment included: Therapeutic exercise, Neuromuscular re-education, Self-fdc management, and Patient/Family/Caregiver Education. Goals for Episode of Care: updated 11/26/2024 Patient will complete HEP at Modified Leo level. (MET) Patient will increase bilateral darkroom worker and pinches by 5# to improve function [...] WITH LEVEL OF FUNCTION: Hand Strength R Cell Tuber Machine Position 2 (lbs): 41 lbs L Cell Tuber Machine Position 2 (lbs): 25 lbs Current Activities [...] was provided in selection of appropriate interventions. Self-Mcfp Management: 1: UB dressing: problem solving use [...] Stop Time : [address] OTR/Tori [facility] 11-26-2024 History of Present illness [...] and treatment included: Therapeutic exercise, Neuromuscular re-education, Self-fdc management, and Patient/Family/Caregiver Education. Goals for Episode of Care: updated 11/26/2024 Patient will complete HEP at Modified Leo level. (MET) Patient will increase bilateral darkroom worker and pinches by 5# to improve function [...] WITH LEVEL OF FUNCTION: Hand Strength R Cell Tuber Machine Position 2 (lbs): 41 lbs L Cell Tuber Machine Position 2 (lbs): 25 lbs Current Activities [...] was provided in selection of appropriate interventions. Self-Mcfp Management: 1: UB dressing: problem solving use [...] [address] documented in this encounter [facility] 11-20-2024 Note HNO ID: [id number] Author: RADHA STREET OTR/L Service: ? Author [...] Stop Time : [address] OTR/L [facility] 11-20-2024 History of Present illness [...] [address] documented in this encounter [facility] 11-17-2024 Note [facility] 11-16-2024 Note [facility] 11-16-2024 Note HNO ID: [id number] Author: TRINA SINGH RN Service: ? Author Type: Registered Nurse Type: Nursing Progress Note Filed: 11/16/2024 12:44 Note Text: Pt reports taking eliquis yesterday (11/15/24). Dr. Jim notified. [facility] 11-16-2024 Note [facility] 11-15-2024 Telephone encounter Note Okay to direct admit per Dr. De Paz Admitting contacted Pt notified. Informed that it may take >24 hours for a bed- [facility] will call to notify once a bed becomes available Advised if symptoms get worse come to ED [facility] 11-15-2024 Miscellaneous Notes Okay to direct admit per Dr. De Paz Admitting contacted Pt notified. Informed that it may take >24 hours for a bed- [facility] will call to notify once a bed becomes available Advised if symptoms get worse come to ED Under the direction of Dr. De Paz, Called and spoke with pt and advised to come to [facility] ED Dr. De Paz reviewed CT ABD, PEHR intact,concerns for CBD not emptying. Pt very tearful, wants to feel better. Continues to experience pain, unable to eat or drink without having liquid stool. Notified MD that pt and on their way to ED. Traveling from [place]. documented in this encounter [facility] 11-15-2024 Telephone encounter Note Under the direction of Dr. De Paz, Called and spoke with pt and advised to come to [facility] ED Dr. De Paz reviewed CT ABD, PEHR intact,concerns for CBD not emptying. Pt very tearful, wants to feel better. Continues to experience pain, unable to eat or drink without having liquid stool. Notified MD that pt and on their way to ED. Traveling from [place]. [facility] 11-12-2024 Note HNO ID: [id number] Author: RADHA STREET OTR/L Service: ? Author [...] goals. PLAN FOR NEXT VISIT: hand exercises, darkroom worker strengthening SUBJECTIVE: Can we work on buttons [...] judgement used in selection of appropriate intervention. Self-Mcfp Management: 1: activity analysis: buttoning, table top [...] Session Stop Time : [address]/Tori [facility] 11-12-2024 History of Present illness [...] goals. PLAN FOR NEXT VISIT: hand exercises, darkroom worker strengthening SUBJECTIVE: Can we work on buttons [...] judgement used in selection of appropriate intervention. Self-Mcfp Management: 1: activity analysis: buttoning, table top [...] [address]/Tori documented in this encounter [facility] 11-12-2024 Telephone encounter Note [facility] COORDINATION TELEPHONE ENCOUNTER Pt contacted the office to get results from her CT scan done at a Satellite facility in [place]. Results are still in process. Pt and informed. [facility] 11-12-2024 Miscellaneous Notes [facility] COORDINATION TELEPHONE ENCOUNTER Pt contacted the office to get results from her CT scan done at a [facility]ellite facility in [place]. Results are still in process. Pt and informed. documented in this encounter [facility] 11-11-2024 History of Present illness Narrative Radiology [...] PATIENT PRESENTS WITH AN IMPLANTABLE OR ATTACHED ROTARY KILN OPERATOR: No ALLERGIES: Reviewed and unchanged CONTRAST ALLERGY: [...] TIME: 2:32 PM documented in this encounter [facility] 11-11-2024 Note [facility] 11-09-2024 Radiology Diagnostic study note [facility] Imaging Services [address] [place], [place] [address] Chest PA and Lateral MR#: [id number] Acct: [id number] Name: LAUREN ALCARAZ Rep #: [id number] : 1940 F 84 From: Trinidad Doherty MD PCP: Dr. Chema Perry MD Status: REG CLI Study:Chest PA and Lateral Date of Exam: 11/09/24 Exam# [id number] Ordering Dr: Chema Perry MD EXAM: XR [...] Lateral IMPRESSION: Suggestion of COPD. [facility] CC: Dr. Chema Perry MD ~ Insurance Assistant: Signed [facility] 11-05-2024 Note HNO ID: [id number] Author: RADHA STREET OTR/Tori Service: ? Author [...] judgement used in selection of appropriate intervention. Self-Mcfp Management: 1: Educated in ulnar nerve anatomy 2: handwrititng: regular ball point pen with darkroom worker vs regular ball point pen 3: handwriting: [...] Stop Time : [address] OTR/Tori [facility] 11-05-2024 History of Present illness [...] judgement used in selection of appropriate intervention. Self-Mcfp Management: 1: Educated in ulnar nerve anatomy 2: handwrititng: regular ball point pen with darkroom worker vs regular ball point pen 3: handwriting: [...] [address] documented in this encounter [facility] 11-03-2024 Instructions Denice Jacobs PA-C - 11/03/2024 3:54 PM EDT Consult to spine Neuromuscular ultrasound of the right ulnar nerve ([phone]) Follow up as needed documented in this encounter [facility] 11-03-2024 Note HNO ID: [id number] Author: MARGARET LEONARD LPN Service: ? Author Type: LICENSED NURSE Type: Progress Notes Filed: 11/03/2024 16:43 Note Text: [facility] 11-03-2024 Note [facility] 11-03-2024 History of Present illness Narrative Images from the original note were not included. [facility] Name: Lauren [...] from the surgery she did not wear darkroom worker socks and did slide to the ground [...] Date Arthritis Asthma Atherosclerotic heart disease of [place] coronary artery without angina pectoris Autoimmune disorder [...] 1,000 mcg intramuscularly once every month. Vitamin U-82-maifdwntrjjvol ammonium lactate (LAC-HYDRIN) 12 % lotion MULTIVITAMIN [...] Range Case Report Surgical Pathology Report Case: [id number] Authorizing Provider: Anila De Paz MD Collected: [...] The cystic duct margin (en face) and pharmaceutical representative sections of the gallbladder wall are submitted in B1. KSZ September 20, 2024 3:38 PM Gross examination performed at [facility], [address] [place], [place] [address] Clinical History Pre-op diagnosis: Hiatal hernia [K44.9] Epigastric pain [R10.13] Nausea and vomiting, unspecified vomiting type [R11.2] Pre-op exam [Z01.818] Performing Lab Diagnostic interpretation performed at: [facility], [address] [place] [address]# [id number] Rn Perinatal: Rosales Quintana MD COMPLETE BLOOD COUNT Result [...] 4.00 k/uL Monocytes % 8.3 % Abs [place] 0.54 <0.87 k/uL Eosinophils % 0.2 % [...] INTERPRETING PHYSICIAN: Vaibhav Ann MD YS//Report ID: [id number] Creation Date: 02/11/20 11:42 am ELECTRONICALLY SIGNED [...] INTERPRETING PHYSICIAN: Vaibhav Ann MD YS//Report ID: [id number] Creation Date: 02/11/20 11:53 am ELECTRONICALLY SIGNED BY: VAIBHAV ANN MD Date Signed: 02/11/20 11:56 am This note was dictated using Studio Bloomed speech recognition software and may contain some [...] which included preparing to see the patient, eyzd-mg-yces patient care, completing clinical documentation, obtaining and/or reviewing separately obtained history, performing a medically appropriate examination, counseling and educating the patient/family/caregiver, and ordering medications, tests, or procedures. documented in this encounter [facility] 11-02-[address] ABD pel IV con PPI Full liquid diet [facility] 11-02-[address] ABD pel IV con PPI Full liquid diet documented in this encounter [facility] 11-01-2024 Instructions Humza Camejo MD - 11/01/2024 [...] and you should strongly consider bringing a jukebox route driver. documented in this encounter [facility] 11-01-2024 Note Date of Procedure 11/01/2024. Drug Room Operator Information Storage Facility Rental Clerk: NEERU. Start time: 3:43 PM. Stop time: 3:43 PM. 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 Interval Change Right Eye Worse. Left Eye Worse. ZEISS 11-01-2024 Note [facility] 11-01-2024 History of Present illness Narrative Tmax: [...] in great hands - low threshold for DRY CANS OPERATOR both eyes Discussed continuation of drop usage to control chronic glaucoma # Pseudophakia both eyes - stable # horizontal diplopia - exotropia on cover/uncover - refer to quality lab technician for prism # dementia - possible [...] its relevant components. documented in this encounter [facility] 10-29-2024 Telephone encounter Note Incoming call from [facility] states the compound that was sent over they do not cover it and it would have to be sent to a different pharmacy. Sandie Messina [facility] 10-29-2024 Miscellaneous Notes [facility]coming call from [facility] states the compound that was sent over they do not cover it and it would have to be sent to a different pharmacy. Sandie Messina documented in this encounter [facility] 10-29-2024 Note [facility] 10-29-2024 History of Present illness Narrative Name: [...] 2024 2:07 PM documented in this encounter [facility] 10-29-2024 Note HNO ID: [id number] Author: RADHA STREET OTR/L Service: ? Author Type: Occupational Therapist Type: Progress Notes Filed: 10/29/2024 12:32 Note Text: Episode Visit Count: 1 Therapist That Will Accept/Oversee The Plan Of Care: [address] Start of Care Date: 10/29/24 Onset Date: 10/29/22 Plan of Care Certification Date: 10/29/24 Next Certification Due Date: 12/28/24 Patient Identified by Name and Date of : Yes [facility] OCCUPATIONAL THERAPY EVALUATION [...] 10/29/24 Patient will complete HEP at Modified Leo level. Patient will increase bilateral darkroom worker and pinches by 5# to improve function [...] Planned: 8 Planned Treatment Interventions: Therapeutic exercise (40534), Neuromuscular re-education (08037), Self-fdc management (78915), Patient/Family/Caregiver Education PLAN FOR NEXT VISIT:assess different writing utensils, proximal stability? button hook, gentle darkroom worker strengthening Patient demonstrates good understanding of plan [...] Assistance Available: 24-Hour Equipment Owned: Dressing Stick, Clin Asst Pain: Pain Pain Level: 0 (mild arthritic [...] thoracic kyphosis, Forward head Hand Strength R Cell Tuber Machine Position 2 (lbs): 35 lbs L Cell Tuber Machine Position 2 (lbs): 24 lbs R Lateral [...] Modified Independent Bathing (more content not included)... [facility] 10-29-2024 History of Present illness Narrative Images from the original note were not included. Episode Visit Count: 1 Therapist That Will Accept/Oversee The Plan Of Care: [address] Start of Care Date: 10/29/24 Onset Date: 10/29/22 Plan of Care Certification Date: 10/29/24 Next Certification Due Date: 12/28/24 Patient Identified by Name and Date of : Yes [facility] OCCUPATIONAL THERAPY EVALUATION [...] 10/29/24 Patient will complete HEP at Modified Leo level. Patient will increase bilateral darkroom worker and pinches by 5# to improve function [...] Planned: 8 Planned Treatment Interventions: Therapeutic exercise (82746), Neuromuscular re-education (81193), Self-fdc management (45380), Patient/Family/Caregiver Education PLAN FOR NEXT VISIT:assess different writing utensils, proximal stability? button hook, gentle darkroom worker strengthening Patient demonstrates good understanding of plan [...] Assistance Available: 24-Hour Equipment Owned: Dressing Stick, Clin Asst Pain: Pain Pain Level: 0 (mild arthritic [...] thoracic kyphosis, Forward head Hand Strength R Cell Tuber Machine Position 2 (lbs): 35 lbs L Cell Tuber Machine Position 2 (lbs): 24 lbs R Lateral [...] Review/Additional Education TREATMENT: OT Treatment Interventions : Self-Mcfp Management Evaluation Self-Mcfp Management: 1: Pt and spouse educated in [...] [address]/Tori documented in this encounter [facility] 10-18-2024 Telephone encounter Note 10/18/24 PCP is listed in the patient's chart. Thank you! -IN [facility] 10-18-2024 Miscellaneous Notes 10/18/24 PCP is listed in the patient's chart. Thank you! -IN documented in this encounter [facility] 10-14-2024 Evaluation note Diagnosis Onset Date Resolution [...] of spine chronic October 22, 2024 2:11pm [facility] Work Phone: [phone] Instructions* Patient Instructions* Laisha Lizarraga APRN.ALBERT - 10/13/2024 2:00 PM EST I will talk w/ my colleagues re: what would be best to help w/ the forward neck curvature, I.e.- PTfor cervical spine, vs other . Also ask your home aed trainer about a device for this as [...] up in ~3-6 mo [facility] History of Present illness Narrative* Laisha Lizarraga APRN.CNP - 10/13/2024 1:15 PM EST Images from the original note were not included. Lauren Alcaraz 1940 [address] [facility] [address] [facility] [address] October 13, 2024 [facility] [...] have the numbness/tingling in feet evaluated better -[phone] Follow up in ~3-6 months Today, Lauren [...] 1,000 mcg intramuscularly once every month. Vitamin R-98-ljmbbqstqtnorq ammonium lactate (LAC-HYDRIN) 12 % lotion MULTIVITAMIN [...] from 2007 DATE: June 15, 2008 NO: [id number] Indication: Question of seizure Medications: None given [...] vs other . Also ask your home aed trainer about a device for this as [...] on the date of service which included xwjs-ue-lekq patient care and counseling and educating the patient/spouse. Laisha Lizarraga, MSN, DANCE ENTERTAINER-C, CNRN CC: 1. No primary care provider [...] Signs: LMP (LMP Unknown) [facility] History of Present illness Narrative* Anila De [...] Date Arthritis Asthma Atherosclerotic heart disease of [place] coronary artery without angina pectoris Autoimmune disorder [...] 1,000 mcg intramuscularly once every month. Vitamin G-04-kpkveiwxqszuwc ammonium lactate (LAC-HYDRIN) 12 % lotion MULTIVITAMIN [...] - Diet as tolerated - 5mg of [place] q6hr for 2 weeks until follow up with pain mgmt - Follow up 4 weeks November MD [place] General Surgery PGY2 I saw and evaluated the patient. Discussed with the resident and agree with resident's findings andplan as documented in the resident's note. Anila De Paz MD documented in this encounterOur [facility] Note[facility] Note[facility] Note[facility] Note [facility]01-28-2025 Instructions* Patient Instructions* Brenda Moreland APRN.ADMINISTRATIVE JOB TITLES - 09/14/2024 2:02 PM EST PATIENT PREOPERATIVE INSTRUCTIONS Anila De Paz has scheduled you for your procedure at this surgery center: [facility] [place] Scheduling Office: [phone] --[address] [place] [address]. Please read below carefully for your personalized instructions. Arrival Time for Surgery: - To obtain your arrival time for surgery, call your physician's office the day before your surgery. - If your surgery is scheduled for Friday, call the Friday before. Your surgeon s cleaning staff supervisor will tell you what time to call the office. - If you have not reached the departmental cleaning staff supervisor by 5 P.M., call [phone] after 5 P.M. the day before your [...] office. If you are currently using a bbmv-usf-nhyh injectable or oral medication for diabetes or [...] Advance Directive, please fax a copy to [phone] or email to for it to be [...] day. Brenda Moreland APRN.CNP documented in this encounterOur [facility] History and physical note * Brenda Moreland [...] large neck Non-male patient STOP-Bang Score: 4 [id number] Score: Age: >=75 Sex: female CHF history: No Hypertension history: Yes Stroke/TIA/thromboembolism history: Yes Vascular disease history: Yes Diabetes history: No [id number] Score: 7 ARISCAT Score: Age: >80 Preoperative [...] for: arrhythmia, atrial fibrillation, CHF and recent NH. GI: Positive for: abdominal pain and GERD Negative for: dysphagia, diverticulitis, GI bleed <30 days, hepatitis, irritable bowel syndrome,inflammatory bowel disease, liver disease, nausea, vomiting and ETOH >2 drinks/day. : Negative for: dysuria, hematuria, nephrolithiasis and renal failure. 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 Vitamin V-36-jefrsmyqadrtzq ammonium lactate (LAC-HYDRIN) 12 % lotion denosumab [...] 402 QTC Calculation (Bazett) 448 Calculated P [place] 42 Calculated R [place] -38 Calculated T [place] 49 Impression NORMAL SINUS RHYTHM LEFT AXIS DEVIATION POOR R WAVE PROGRESSION INFERIOR MYOCARDIAL INFARCTION , AGE UNDETERMINED ABNORMAL ECG Confirmed by MD DUNG, SOURAV ([id number]), food editor TONYA IVEY ([id number]) on 08/03/2024 4:15:08 PM Recent Results (from the past 60751 hour(s)) ECHO Collection Time: 07/09/24 11:20 AM [...] which included preparing to see the patient, mpmv-gj-cfjx patient care, completing clinical documentation, obtaining and/or reviewing separately obtained history, performing a medically appropriate examination, counseling and educating the pat ient/family/caregiver, and ordering medications, tests, or procedures. SIGNATURE: Brenda Moreland APRN.CNP PATIENT NAME: Lauren Alcaraz DATE: September 14, 2024 TIME: 1:52 PM PAGER/CONTACT #: [facility]01-28-2025 History and physical note* Brenda Moreland APRN.ADMINISTRATIVE JOB TITLES - 09/14/2024 1:52 PM EST Images from [...] large neck Non-male patient STOP-Bang Score: 4 [id number] Score: Age: >=75 Sex: female CHF history: No Hypertension history: Yes Stroke/TIA/thromboembolism history: Yes Vascular disease history: Yes Diabetes history: No [id number]-RYRo Score: 7 ARISCAT Score: Age: >80 Preoperative [...] for: arrhythmia, atrial fibrillation, CHF and recent NH. GI: Positive for: abdominal pain and GERD Negative for: dysphagia, diverticulitis, GI bleed <30 days, hepatitis, irritable bowel syndrome,inflammatory bowel disease, liver disease, nausea, vomiting and ETOH >2 drinks/day. : Negative for: dysuria, hematuria, nephrolithiasis and renal failure. 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 Vitamin P-66-ligrjcfaveqxvk ammonium lactate (LAC-HYDRIN) 12 % lotion denosumab [...] 402 QTC Calculation (Bazett) 448 Calculated P [place] 42 Calculated R [place] -38 Calculated T [place] 49 Impression NORMAL SINUS RHYTHM LEFT AXIS DEVIATION POOR R WAVE PROGRESSION INFERIOR MYOCARDIAL INFARCTION , AGE UNDETERMINED ABNORMAL ECG Confirmed by MD DUNG, SOURAV ([id number]), food editor TONYA IVEY ([id number]) on 08/03/2024 4:15:08 PM Recent Results (from the past 62230 hour(s)) ECHO Collection Time: 07/09/24 11:20 AM [...] which included preparing to see the patient, udxv-al-okdt patient care, completing clinical documentation, obtaining and/or reviewing separately obtained history, performing a medically appropriate examination, counseling and educating the pat ient/family/caregiver, and ordering medications, tests, or procedures. SIGNATURE: Brenda Moreland APRN.CNP PATIENT NAME: Lauren Alcaraz DATE: September 14, 2024 TIME: 1:52 PM PAGER/CONTACT #: documented in this encounterOur [facility] Nurse Note* Ana Fuentes RN - 09/13/2024 [...] OK to discharge. Ana Fuentes RN BSN [facility]01-27-2025 Nurse Note* Ana Fuentes RN - 09/13/2024 [...] RN In Department: GASTROENTEROLOGY documented in this encounterOur [facility] Nurse Note* Ana Fuentes RN - 09/13/2024 [...] MATERIAL: Procedure Discharge Instructions REFERRAL (RECOMMENDATION): None [facility]01-27-2025 NoteQ3 Patient Name: Lauren Alcaraz Procedure Date: 09/13/2024 12:35 PM Date of : 1940 Admit Type: Outpatient Age: 84 Gender: Female Note Status: Finalized Attending MD: Alisa Haile MD, [id number] Procedure: Upper EUS Indications: Dilated pancreatic duct [...] to home. Procedure Code(s): --- Professional --- 14415 Diagnosis Code(s): --- Professional --- K44.9 K80.50 K86.89 K83.8 CPT copyright 2020 [employer] (more content not included)...PROVATION 09-13-2024 NoteQ3 Patient Name: Lauren Alcaraz Procedure Date: 09/13/2024 12:34 PM Date of : 1940 Admit Type: Outpatient Age: 84 Gender: Female Note Status: Finalized Attending MD: Alisa Haile MD, [id number] Procedure: ERCP Indications: Bile duct stone(s) Providers: [...] administered by the anesthesia team. Findings: The physiognomist film was normal. Despite multiple attempts to [...] hernia repair. Procedure Code(s): --- Professional --- 09532 Diagnosis Code(s): --- Professional --- K80.50 CPT copyright 2020 [employer]. All rights reserved. Attending Participation: I was present and participated during the entire procedure, including non-guillermo portions. Scope In: 1:37:28 PM Scope Out: 2:05:[address] Alisa Haile MD 09/13/2024 2:08:23 PM This report has been signed electronically by Alisa Haile MD Number of Addenda: 0 Note Initiated On: 09/13/2024 12:34 [id number] NoteOur [facility] History and physical note* Arturo Olsen MD - 09/13/2024 1:00 PM EST PROCEDURAL SEDATION HISTORY AND PHYSICAL EXAM SERVICE DATE: 09/13/2024 SERVICE TIME: 1232 Subjective HPI: This is a 84 year old female who presents with Dilated PD and bile duct stone PAST ANESTHESIA HISTORY:No history of adverse event PAST MEDICAL HISTORY Diagnosis Date Arthritis Asthma Atherosclerotic heart disease of [place] coronary artery without angina pectoris Autoimmune disorder [...] FLUTICASONE,) 50 mcg/actuation nasal spray Use 1 Mineral in each nostrilonce daily. donepezil (ARICEPT) 10 mg tablet Take 1 tablet by mouth daily with breakfast. gabapentin (NEURONTIN) 100 mg capsule as needed. traMADol (ULTRAM) 50 mg tablet Take 25 mg by mouth two times a day. famotidine (PEPCID) 10 mg tablet Take 10 mg by mouth twice daily. DODEX 1,000 mcg/mL Inject 1,000 mcg intramuscularly once every month. Vitamin A-67-eytqusfuzfipgn ammonium lactate (LAC-HYDRIN) 12 % lotion BD ECLIPSE LUER-BZOENA 3 mL 23 x 1 MULTIVITAMIN ORAL [...] 13, 2024 TIME: 12:32 PM Created 2023 [facility] Work Phone: 1(874) 483-683501-27-2025 History and physical note* Arturo Olsen MD - 09/13/2024 1:00 PM EST PROCEDURAL SEDATION HISTORY AND PHYSICAL EXAM SERVICE DATE: 09/13/2024 SERVICE TIME: 1232 Subjective HPI: This is a 84 year old female who presents with Dilated PD and bile duct stone PAST ANESTHESIA HISTORY:No history of adverse event PAST MEDICAL HISTORY Diagnosis Date Arthritis Asthma Atherosclerotic heart disease of [place] coronary artery without angina pectoris Autoimmune disorder [...] FLUTICASONE,) 50 mcg/actuation nasal spray Use 1 Mineral in each nostrilonce daily. donepezil (ARICEPT) 10 mg tablet Take 1 tablet by mouth daily with breakfast. gabapentin (NEURONTIN) 100 mg capsule as needed. traMADol (ULTRAM) 50 mg tablet Take 25 mg by mouth two times a day. famotidine (PEPCID) 10 mg tablet Take 10 mg by mouth twice daily. DODEX 1,000 mcg/mL Inject 1,000 mcg intramuscularly once every month. Vitamin H-34-yuxxmcnngevqkv ammonium lactate (LAC-HYDRIN) 12 % lotion BD [...] TIME: 12:32 PM 2023 documented in this encounterOur [facility] Nurse Note* Tonya De Santiago RN - [...] Tonya De Santiago RN In Department: GASTROENTEROLOGY [facility]01-24-2025 NoteOur [facility] [place] History of Present illness Narrative* Nicolás Beltrán [...] Care Visit completed when applicable. Brenda Kramer, code clerk B.Allie Beltrán DO documented in this encounterOur Lady Of [facility]cy [facility]01-23-2025 Telephone encounter Note * Telephone Encounter - Jacqueline Noland LPN - 09/09/2024 11:32 AM EST Images from [id number] request faxed to [facility] . [facility]01-23-2025 Miscellaneous Notes* Telephone Encounter - Jacqueline Noland LPN - 09/09/2024 11:32 AM EST Images from [id number] request faxed to [facility] . documented in this encounterOur Lady Of [facility] [place]-2025 Telephone encounter Note * Telephone Encounter - Talyor Forrest RN - 09/08/2024 2:34 PM EST Spoke with Lauren's Delroy- EUS is scheduled for 09/13/[address] Haile. Reviewed Instructions for Eliquis and Aspirin pre-op. Understands that Eliquis is to be held TWO days before surgery Aspirin only held for ONE day prior to surgery Sent updated H[employer]ong[employer] message. [facility]01-22-2025 Miscellaneous Notes* Telephone Encounter - Taylor Forrest RN - 09/08/2024 2:34 PM EST Spoke with Lauren's Delroy- EUS is scheduled for Fri09/13/[address] Haile. Reviewed Instructions for Eliquis and Aspirin pre-op. Understands that Eliquis is to be held TWO days before surgery Aspirin only held for ONE day prior to surgery Sent updated [employer] message. documented in this encounterOur Lady Of [facility]01-[facility]-2025 Telephone encounter Note * Telephone Encounter - Susan Srinivasan MD - 09/08/2024 1:51 PM EST Spoke with patient and spouse about MRI findings and that EUS was necessary. All Qs answered. They are willing to come on Friday for EUS Dr. Oumar Murray. Susan Srinivasan MD [facility] Work Phone: 1(892) 473-112501-22-2025 Miscellaneous Notes* Telephone Encounter - Susan Srinivasan MD - 09/08/2024 1:51 PM EST Spoke with patient and spouse about MRI findings and that EUS was necessary. All Qs answered. They are willing to come on Friday for EUS Dr. Oumar Murray. Susan Srinivasan MD documented in this encounterOur Lady Of [facility]01-[facility]-2025 History of Present illness Narrative* Jaqueline Costello, [...] PATIENT PRESENTS WITH AN IMPLANTABLE OR ATTACHED ROTARY KILN OPERATOR: No ALLERGIES: Reviewed and unchanged CONTRAST ALLERGY: NO. EXAM: MRI - CONTRAST TYPE: GROUP II PERIPHERAL IV DATA: Ambulatory: A peripheral IV was started in the Left upper extremity with a Angio cath: 22 gauge. RADIOLOGY DEPARTMENT: MR; Exam(s) Completed: Body: Pancreas/Biliary SIGNATURE: RT Brice(R) PATIENT NAME: Lauren Alcaraz DATE: September 07, 2024 TIME: 9:32 AM documented in this encounterOur Lady Of [facility]01-21-2025 NoteOur [facility]01-21-2025 Telephone encounter Note* Telephone Encounter - Joan [...] asa until 1 day pre-op? Joan Nolasco [facility] Work Phone: 1(596) 773-662201-21-2025 Miscellaneous Notes* Telephone Encounter - Joan Streeter [...] Joan Streeter RN- PAC documented in this encounterOur Lady Of [facility] [place]01-20-2025 Telephone encounter Note * Telephone Encounter - Sourav Marcial MD - 09/06/2024 5:50 PM EST She can hold aspirin only for 1 day prior to her surgery date as she had 2 coronary artery stents and cannot stop aspirin for any longer than 24 hours. [facility]01-20-2025 Telephone encounter Note* Telephone Encounter - Misty Reyes RN - 09/06/2024 2:07 PM EST SHELIA: 08/03/2024- Dung FOV: 02/01/2025- Dung Forward to Dr. Marcial. Please advise. [facility]01-20-2025 Telephone encounter Note* Telephone Encounter - Joan [...] prior to DOS. Joan Streeter RN- PACC [facility]01-20-2025 NoteOur [facility]01-[facility]-2025 History of Present illness Narrative* Joan Streeter RN - 09/06/2024 9:22 AM EST RN Pre Visit Questionnaire for upcoming PACC appointment PROCEDURE : LAPAROSCOPIC RPR PARAESOHAGEAL HERNIA W/ FUNDOPLASTY +/- MESH SURGEON : Anila De Paz MD PROCEDURE DATE : 2/3 P[facility] APPT : 09/15 Do you see a hematology nurse educator, lead painter, aircraft assembler or other specialist within or outside of [facility]? SPECIALISTS: CARDIOLOGY: Flower Cutter Dr. Sourav Marcial , Last office visit 08/03 NEUROLOGY: Denice Jacobs PA-C OV 08/06/24 PRIMARY CARE PHYSICIAN: Chema Perry MD ([place]) OV 04/22/24 in scanned doc 05/14/24 [employer] [facility]: Tamiko Ku DANCE ENTERTAINER-C OV 11/12/23 in scanned doc 07/19 Denies [...] doc 07/19 Most recent CARDIAC CATH: 09/2013 [facility] Most recent carotid duplex 12/02/23 in scanned doc 07/19: Display only: Top Lift Scourer ([id number]) on 08/03/2024 4:15 PM by Sourav Marcial [...] instructions and voices comprehension and compliance. 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: Negative for abnormal vaginal bleeding, abnormal vaginal [...] Anila De Paz MD PATIENT NAME: Lauren Aclaraz DATE: September 03, 2024 TIME: 3:00 PM [facility]01-17-2025 History and physical note* Anila De Paz [...] Date Arthritis Asthma Atherosclerotic heart disease of [place] coronary artery without angina pectoris Autoimmune disorder [...] No history of dysuria, frequency or incontinence 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 De Paz at [facility] ELIQUIS INSTRUCTIONS per Dr. Marcial [...] am of surgery Pt requested transfer to [facility] in [place] for rehab. Will inform team - advised pt to inform outsole caser before discharge. AMBULATORY PATIENT EDUCATION NOTE TOPIC: [...] patient education: 20 minutes. documented in this encounterOur Lady Of [facility]01-08-2025 Telephone encounter Note * Telephone Encounter - [...] Provided pt and this RN contact info [facility]01-08-2025 Miscellaneous Notes* Telephone Encounter - Taylor Forrest [...] this RN contact info documented in this encounterOur Lady Of [facility]12-20-2024 Instructions* Patient Instructions* Denice Jacobs PA-C - 08/06/2024 10:30 AM EST Laboratory studies EMG of the arm and leg Follow up in [place] (Tuesdays and Wednesdays) after work up documented in this encounterOur Lady Of Mercy [facility]12-20-2024 NoteOur [facility]12-20-2024 History of Present illness Narrative* Denice Jacobs PA-C - 08/06/2024 9:47 AM EST Images from the original note were not included. [facility] Name: Lauren [...] Hx of dementia and following with [facility], referred for paresthesias. Last visit on [...] her handwriting. Has no burning pain or sphg-qzx-wgbuyws feeling, just reports a lack of sensation [...] primary care who is outside of the [facility]. Numbness in feet: yes, bottom of feet [...] Date Arthritis Asthma Atherosclerotic heart disease of [place] coronary artery without angina pectoris Autoimmune disorder [...] FLUTICASONE,) 50 mcg/actuation nasal spray Use 1 Mineral in each nostrilonce daily. donepezil (ARICEPT) 10 mg tablet Take 1 tablet by mouth daily with breakfast. gabapentin (NEURONTIN) 100 mg capsule as needed. traMADol (ULTRAM) 50 mg tablet Take 25 mg by mouth two times a day. famotidine (PEPCID) 10 mg tablet Take 10 mg by mouth twice daily. DODEX 1,000 mcg/mL Inject 1,000 mcg intramuscularly once every month. Vitamin I-96-gmiunkwsemzorl ammonium lactate (LAC-HYDRIN) 12 % lotion BD [...] Skin Biopsy: This note was dictated using Studio Bloomed speech recognition software and may contain some [...] which included preparing to see the patient, raen-xs-xecm patient care, completing clinical documentation, obtaining and/or reviewing separately obtained history, performing a medically appropriate examination, counseling and educating the pat ient/family/caregiver, and ordering medications, tests, or procedures. documented in this encounterOur Lady Of Mercy [facility]12-17-2024 NoteNORMAL SINUS RHYTHM LEFT AXIS DEVIATION POOR R WAVE PROGRESSION INFERIOR MYOCARDIAL INFARCTION , AGE UNDETERMINED ABNORMAL ECG Confirmed by MD MARCIAL QARAB ([id number]), food editor TONYA IVEY ([id number]) on 08/03/2024 4:15:08 PMCLINTON [facility]PITALRT AND VASCULAR [id number] Instructions* Patient Instructions* Sourav Marcial MD - [...] Interventional procedures are not considered surgery. A hematology nurse educator (not a surgeon) performs theseprocedures to reduce [...] part of your treatment. documented in this encounterOur Lady Of [facility]cy [facility]12-17-2024 NoteOur [facility] Of [facility]12-17-2024 History of Present illness Narrative* Sourav Marcial MD - 08/03/2024 3:29 PM EST Images from the original note were not included. [facility] Department of Cardiovascular Medicine SECTION OF [facility] CARDIOLOGY [facility] August 03, 2024 OUTPATIENT VISIT TYPE [...] Date Arthritis Asthma Atherosclerotic heart disease of [place] coronary artery without angina pectoris Autoimmune disorder [...] FLUTICASONE,) 50 mcg/actuation nasal spray Use 1 Mineral in each nostrilonce daily. donepezil (ARICEPT) 10 mg tablet Take 1 tablet by mouth daily with breakfast. gabapentin (NEURONTIN) 100 mg capsule as needed. traMADol (ULTRAM) 50 mg tablet Take 25 mg by mouth two times a day. famotidine (PEPCID) 10 mg tablet Take 10 mg by mouth twice daily. DODEX 1,000 mcg/mL Inject 1,000 mcg intramuscularly once every month. Vitamin O-19-ljbbskdabzfwgy ammonium lactate (LAC-HYDRIN) 12 % lotion MULTIVITAMIN [...] than 50% stenosis with mild plaque disease [facility] nuclear SPECT scan done on May 2023 also shows normal LV function with no evidence of ischemia ejection fraction of 89%. However, it was done with 69% of maximal Peritrate heart rate obtained. Echocardiogram done in [facility] on 09 July 2024 shows normal LV function withejection fraction of 59%, 2+ tricuspid regurgitation with right ventricular systolic pressure of 59mmHg. 08/03/2024 EKG showed normal sinus rhythm with old inferior wall NH and poor R wave progression with no [...] low fat diet. Sourav Marcial MD, FACC. Boiler Tender, Dept of Cardiology and Medicine, [facility]. Pharmacist Manager of Ambulatory Cardiology, [facility]. Pharmacist Manager of Cardiac Catheterization laboratory, [facility]. Clinical Asst. security tester, [facility] and [facility] Staff Flower Cutter, Heart, Vascular and [facility], [facility]. 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 documented in this encounterOur Lady Of Mercy [facility]12-04-2024 Nurse Note* Gina Dietrich LPN - 07/21/2024 [...] MATERIAL: Procedure Discharge Instructions REFERRAL (RECOMMENDATION): None [facility]12-04-2024 Nurse Note* Gina Dietrich LPN - 07/21/2024 [...] RN In Department: GASTROENTEROLOGY documented in this encounterOur Lady Of Mercy [facility]12-04-2024 NoteQ3 Patient Name: Lauren Alcaraz Procedure Date: 07/21/2024 4:12 PM Date of : 1940 Admit Type: Outpatient Age: 83 Gender: Female Note Status: Finalized Attending MD: Eliazar Brown MD, [id number] Procedure: Upper GI endoscopy Indications: Hiatal hernia [...] were provided to the (more content not included)...[id number] Nurse Note* Trina Singh RN - 07/21/2024 [...] By: Trina Singh RN In Department: GASTROENTEROLOGY [facility]12-02-2024 Evaluation note* Diagnosis Onset Date Resolution Status [...] of spine chronic October 22, 2024 2:11pm [facility] Work Phone: 1(586) 129-495112-02-2024 Telephone encounter Note* Telephone Encounter - Dottie Horowitz LPN - 07/19/2024 3:53 PM EST Printed from [employer]. Scanned into Epic through Onbase scanning. Dottie Horowitz LPN [facility]12-02-2024 Miscellaneous Notes* Telephone Encounter - Dottie Horowitz LPN - 07/19/2024 3:53 PM EST Printed from [employer]. Scanned into Epic through Onbase scanning. Dottie Horowitz LPN * Telephone Encounter - Willa Torres APRN.CNP - 07/19/2024 3:43 PM EST Please request last cardiac OV and testing. documented in this encounterOur Lady Of [facility]12-02-2024 Telephone encounter Note * Telephone Encounter - Willa Torres APRN.CNP - 07/19/2024 3:43 PM EST Please request last cardiac OV and testing. [facility]11-29-2024 History and physical note* Willa Torres APRN.CNP [...] 129/67 Hyperlipidemia Assessment: c/w statin Seizure disorder ([facility]) Assessment: controlled on rx, last known seizure over 10 years ago History of DVT (deep vein thrombosis) Assessment: hx 2011, tx with coumadin, no recurrence Obstructive sleep apnea syndrome Assessment: c/w CPAP Bronchiectasis ([facility]) Assessment: rx as needed Gastroesophageal reflux disease [...] large neck Non-male patient STOP-Bang Score: 2 [id number] Score: Age: >=75 Sex: female CHF history: No Hypertension history: No Stroke/TIA/thromboembolism history: Yes Vascular disease history: Yes Diabetes history: No [id number] Score: 6 ARISCAT Score: Age: >80 Preoperative [...] pain, CHF, congenital heart defect, hypertension, recent NH, PVD, open heart surgery and valve surgery. GI: See HPI. Positive for: dysphagia, esophageal stricture (hx dilation), GERD (hx, otc rx as needed) and vomiting (intermittently) Negative for: abdominal pain, hepatitis, irritable bowel syndrome, inflammatory bowel disease, liver disease, nausea, pancreatitis and ETOH >2 drinks/day. : Positive for: urinary incontinence (+OAB, on rx). 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 Taking Yes donepezil [...] 1,000 mcg intramuscularly once every month. Vitamin K-89-qdsgckudgkbifd Taking Yes ammonium lactate (LAC-HYDRIN) 12 % [...] 8760 hour(s)). Recent Results (from the past 57540 hour(s)) ECHO Collection Time: 07/09/24 11:20 AM [...] 16, 2024 TIME: 2:48 PM PAGER/CONTACT #: [facility] History and physical note* Willa Torres APRN.CNP - 07/16/2024 2:48 PM EST Images from the original note were not included. [facility] HISTORY [...] following [facility], last OV 11/12/2023 scanned into [facility]. Stress test 05/2023 negative for ischemia. [...] large neck Non-male patient STOP-Bang Score: 2 [id number] Score: Age: >=75 Sex: female CHF history: No Hypertension history: No Stroke/TIA/thromboembolism history: Yes Vascular disease history: Yes Diabetes history: No [id number] Score: 6 ARISCAT Score: Age: >80 Preoperative [...] pain, CHF, congenital heart defect, hypertension, recent NH, PVD, open heart surgery and valve surgery. GI: See HPI. Positive for: dysphagia, esophageal stricture (hx dilation), GERD (hx, otc rx as needed) and vomiting (intermittently) Negative for: abdominal pain, hepatitis, irritable bowel syndrome, inflammatory bowel disease, liver disease, nausea, pancreatitis and ETOH >2 drinks/day. : Positive for: urinary incontinence (+OAB, on rx). 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 Taking Yes donepezil [...] 1,000 mcg intramuscularly once every month. Vitamin Z-70-eapipktkzjbvof Taking Yes ammonium lactate (LAC-HYDRIN) 12 % [...] 8760 hour(s)). Recent Results (from the past 17805 hour(s)) ECHO Collection Time: 07/09/24 11:20 AM [...] 2:48 PM PAGER/CONTACT #: documented in this encounterOur Lady Of Mercy [facility]11-29-2024 Instructions* Patient Instructions* Willa Torres APRN.CNP - 07/16/2024 2:42 PM EST Images from the original note were not included. [facility] PATIENT PREOPERATIVE INSTRUCTIONS No ref. provider found has scheduled you for your procedure at this surgery center: [facility] Scheduling Office: [phone] --[address] [place] [address]. Please read below carefully for your personalized [...] office. If you are currently using a cabm-keb-xsxb injectable or oral medication for diabetes or [...] or other anticoagulants without consulting with your hematology nurse educator or prescribing physician. - Stop ALL herbal [...] Procedures: - YOU MUST HAVE A RESPONSIBLE PULP MAKER TAKE YOU HOME. A COMPUTER INFORMATION SYSTEMS PROFESSOR OR HISTOLOGIST TECHNOLOGIST CANNOT BE MADE A RESPONSIBLE PULP MAKER. - We recommend that a responsible person [...] call the Friday before. Your surgeon s cleaning staff supervisor will tell you what time to call the office. - If you have not reached the departmental cleaning staff supervisor by 5 P.M., call [phone] after 5 P.M. the day before your surgery. Please be aware that emergency situations arise, which may delay or change your surgical time. If this happens, we will notify you as soon as possible and regret any inconvenience. If you already have an Advance Directive, please fax a copy to [phone] or email to for it to be [...] day. Willa Torres APRN.ALBERT documented in this encounterOur Lady Of [facility]cy [facility]11-27-2024 Telephone encounter Note * Telephone Encounter - [...] have family/friend present for procedure transport home:Patient/patient pharmaceutical representative was told that if they do [...] area. Any barriers to Patient learning: Patient/Patient Direct Marketing Representative responded appropriately on phone. Type of instruction given: Verbal by telephone contact. Jaqueline Del Cid RN [facility]11-27-2024 Miscellaneous Notes* Telephone Encounter - Jaqueline Del [...] have family/friend present for procedure transport home:Patient/patient pharmaceutical representative was told that if they do [...] area. Any barriers to Patient learning: Patient/Patient Direct Marketing Representative responded appropriately on phone. Type of instruction given: Verbal by telephone contact. Jaqueline Del Cid RN documented in this encounterOur Lady Of Mercy [facility]11-21-2024 Telephone encounter Note * Telephone Encounter - Terri Orosco RN - 07/08/2024 11:05 AM EST Patients called back to office today. Spoke with spouse and all questions answered. Discussed need for holding blood thinner for EGD which spouse will reach out to local hematology nurse educator for instructions. [facility]-21-2024 Miscellaneous Notes* Telephone Encounter - Terri Orosco RN - 07/08/2024 11:05 AM EST Patients called back to office today. Spoke with spouse and all questions answered. Discussed need for holding blood thinner for EGD which spouse will reach out to local hematology nurse educator for instructions. * Telephone Encounter - Mary Anne Wing - 07/07/2024 9:56 AM EST Patient called in and would like someone to go over instructions with her regarding her upcoming EGD. Please call [phone] this is her phone number the number in epic is her husbands cell. Mary Anne Nielsen documented in this encounterOur Lady Of Mercy [facility]11-20-2024 Telephone encounter Note * Telephone Encounter - Mary Anne Wing - 07/07/2024 9:56 AM EST Patient called in and would like someone to go over instructions with her regarding her upcoming EGD. Please call [phone] this is her phone number the number in epic is her husbands cell. Mary Anne Gia [facility]11-20-2024 Telephone encounter Note* Telephone Encounter - Fatimah Robbins RN - 07/07/2024 9:50 AM EST Verbal instructions given for EGD/ Instructions mailed to patient home on 07/07/2024 [facility]11-20-2024 Miscellaneous Notes* Telephone Encounter - Fatimah Robbins RN - 07/07/2024 9:50 AM EST Verbal instructions given for EGD/ Instructions mailed to patient home on 07/07/2024 documented in this encounterOur Lady Of Mercy [facility]11-18-2024 Evaluation note* Diagnosis Onset Date Resolution Status Admit Date Osteoarthritis of right knee noneact song July 05, 2024 1:18pm Atherosclerotic heart diseas e of [place] coronary artery without angina pectoris acute July [...] of spine chronic October 22, 2024 2:11pm [facility] Work Phone: 1(434) 543-488411-14-2024 Instructions* Patient Instructions* Laisha Lizarraga, MEAL ROOM HAND.ADMINISTRATIVE JOB TITLES - 07/01/2024 2:32 PM EST Continue the current medications as you have been 2. Contnue to be active, busy and cognitively/socially engaged 3. Be cautious with fall prevention 4. Continue to follow w/ Dr. De Paz 5. Consider seeing the Neuromuscular dept to have the numbness/tingling in feet evaluated [facility] -[phone] Follow up in ~3-6 months documented in this encounterOur [facility] History of Present illness Narrative* Laisha Lizarraga APRN.ALBERT - 07/01/2024 1:45 PM EST Lauren Alcaraz 1940 [address] [facility] [address] [facility] [id number] July 01, 2024 [facility] FOLLOW-UP NOTE Accompanied by: [...] struggling with chronic back pain/scoloisis/kyphosis- following w/ [facility] -- reporting increased fine motor difficulty, poor writing legibility, shakiness -- early satiety r/t hiatal hernia Previous plan included: Will look into whether there is a holistic and all-encompassing provider you could see who can synthesize all the data from your various specialists 2. Keep working hard at the therapy and PT! 3. See what the [facility] feels about the thoracic pain tomorrow- pending that- we may consider referring you to our spine dept 4. Keep the medications the same for now Today, Lauren and her spouse returns for a routine follow up visit. She did have a visit at the [facility] and she felt that not much resulted [...] FLUTICASONE,) 50 mcg/actuation nasal spray Use 1 Mineral in each nostrilonce daily. donepezil (ARICEPT) 10 [...] 1,000 mcg intramuscularly once every month. Vitamin X-21-qxrafipxmfsmdi ammonium lactate (LAC-HYDRIN) 12 % lotion BD [...] from 2007 DATE: June 15, 2008 NO: [id number] Indication: Question of seizure Medications: None given [...] during this recording. CSF Alzheimer's Disease Biomarkers ([facility] Phospho-tau) from 01/2020 A-Beta 42: 573 [...] have the numbness/tingling in feet evaluated better -[phone] Follow up in ~3-6 months I spent a total of 40 minutes on the date of service which included gfoz-ap-glvk patient care and counseling and educating the patient/spouse. Laisha Lizarraga, MSN, DANCE ENTERTAINER-C, CNRN CC: 1. No primary care provider on file., (fax) None documented in this encounterOur [facility]11-14-2024 NoteOur [facility] Of [facility]11-14-2024 Nurse Note* Arun Buenrostro MA - 07/01/2024 [...] oz) LMP (LMP Unknown) BMI 19.87 kg/m [facility]-14-2024 Nurse Note* Arun Buenrostro MA - 07/01/2024 [...] Unknown) BMI 19.87 kg/m documented in this encounterOur Lady Of Mercy [facility]11-07-2024 History of Present illness Narrative* Jesika Fuentes, [...] PATIENT PRESENTS WITH AN IMPLANTABLE OR ATTACHED ROTARY KILN OPERATOR: No ALLERGIES: Reviewed and unchanged CONTRAST ALLERGY: [...] 2024 TIME: 4:06 PM documented in this encounterOur Lady Of [facility]11-07-2024 NoteOur [facility]11-01-2024 NoteOur [facility] Of [facility]11-01-2024 History of Present illness Narrative* Taylor Forrest [...] - Stop all ASA and NSAID products, [place] 3 fish oil, herbal products such as ginko etc.for 7 days prior to procedure - Medication List reviewed. Patient agreed to hold Eliquis 3 days before procedure - Patient aware - must have a responsible jukebox route driver on the day of procedure. Patient stated good understanding and agreed with plan. Provided contact number for this RN. 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: Negative for abnormal vaginal bleeding, abnormal vaginal [...] EGD Echo and cardiology evaluation at the [facility] CT Chest/Abd/Pel with IV con Creat Consult to Internal Medicine SIGNATURE: Anila De Paz MD PATIENT NAME: Lauren Alcaraz DATE: June 18, 2024 TIME: 1:12 PM [facility]-01-[facility]24 History and physical note* Anila De Paz [...] Date Arthritis Asthma 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 He was at the store an unable to go into detail. States that all pt's records and images were sent to [facility] - This RN is unable to locate. Last CT ABD per was in JUN 2023 at [facility]. She may have had an EGD years ago States that his 's situation is declining and her quality of life is affected. Called [facility] - only CT results they have on file are from Jun [address] Chest and CT abd results be pushed to [facility] for her appt tomorrow. CT ABD/pel w IV contrast 07/12/22 Impression: 1.) stable right inguinal hernia. Small bowel present, no obstruction seen. 2.) Large Hiatal hernia 3.) Dilatation of CBD - no obvious stones [facility]10-31-2024 Miscellaneous Notes* Telephone Encounter - Taylor Forrest RN - 06/17/2024 11:15 AM EDT Spoke briefly with pt's , Delroy. He was at the store an unable to go into detail. States that all pt's records and images were sent to [facility] - This RN is unable to locate. Last CT ABD per was in JUN 2023 at [facility]. She may have had an EGD years ago States that his 's situation is declining and her quality of life is affected. Called [facility] - only CT results they have on file are from Jun [address] Chest and CT abd results be pushed to [facility] for her appt tomorrow. CT ABD/pel w IV contrast 07/12/22 Impression: 1.) stable right inguinal hernia. Small bowel present, no obstruction seen. 2.) Large Hiatal hernia 3.) Dilatation of CBD - no obvious stones documented in this encounterOur Lady Of Mer[facility]10-24-2024 Telephone encounter Note * Telephone Encounter - [...] - exotropia on cover/uncover - refer to quality lab technician for prism # 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 DLB + vascular disease - follow neurology, continue documented in this encounterOur Lady Of [facility]10-08-2024 NoteOur Lady Of Mer[facility]10-08-2024 History of Present illness Narrative* Susan Squires MD - 05/25/2024 2:12 PM EDT HISTORY AND PHYSICAL Lauren Alcaraz 1940 REFERRING PHYSICIAN: Chema Perry MD CHIEF COMPLAINT: Consult (Diaphragmatic Hernia) HPI: The patient is a 83 year old female with a complaint of large hiatal hernia. Patient was recently in [facility] department underwent an abdomen and pelvis [...] Date Arthritis Asthma Atherosclerotic heart disease of [place] coronary artery without angina pectoris Autoimmune disorder [...] daily. azelastine 0.1% nasal spray Use 1 Mineral in each nostril two times a day. cetirizine (ZYRTEC) 10 mg tablet Take 10 mg by mouth once daily as needed. diazePAM (VALIUM) 2 mg tablet Take 2 mg by mouth at bedtime as needed for anxiety. fluticasone (ALLERGY RELIEF, FLUTICASONE,) 50 mcg/actuation nasal spray Use 1 Mineral in each nostrilonce daily. valACYclovir (VALTREX) 500 [...] 1,000 mcg intramuscularly once every month. Vitamin H-04-jjgmpymfoofxzs ammonium lactate (LAC-HYDRIN) 12 % lotion BD [...] going to get a referral up to [facility] for this large hiatal hernia. Hopefully [...] Susan Squires III, MD documented in this encounterOur Lady Of Mercy [facility]09-30-2024 Nurse Note* Marian José, RN - 05/17/2024 [...] 06/25/2018 Last Colonoscopy: never Marian José RN [facility]09-30-2024 Nurse Note* Marian José RN - 05/17/2024 [...] never Marian José RN documented in this encounterOur Lady Of Mercy [facility]09-16-2024 NoteDate of Procedure 05/03/2024. Drug Room Operator Information was not able due to head position . NFL Interpretation Right Eye Diffuse loss. Left Eye Diffuse loss. Interval Change Right Eye Stable. Left Eye Stable.[id number] NoteOur Lady Of Mercy Hospital - [facility]09-16-2024 History of Present illness Narrative* Humza Camejo [...] - exotropia on cover/uncover - refer to quality lab technician for prism # dementia - possible [...] of its relevant components. documented in this encounterOur Lady Of Mercy [facility]08-08-2024 Instructions* Patient Instructions* Laisha Lizarraga APRN.ALBERT - 03/25/2024 2:26 PM EDT Will look into whether there is a holistic and all-encompassing provider you could see who can synthesize all the data from your various specialists 2. Keep working hard at the therapy and PT! 3. See what the [facility] feels about the thoracic pain tomorrow- pending that- we may consider referring you to our spine dept 4. Keep the medications the same for now Follow up pending the results from the above-- potentially 3 months documented in this encounterOur Lady Of [facility]08-08-2024 History of Present illness Narrative* Laisha Lizarraga APRN.ALBERT - 03/25/2024 1:45 PM EDT Lauren Alcaraz 1940 [address] [facility] [address] [facility] [address] March 25, 2024 [facility] FOLLOW-UP NOTE Accompanied by: [...] of T/L spine performed on 03/19 at [facility] and they will see the doctor there [...] from 2007 DATE: June 15, 2008 NO: [id number] Indication: Question of seizure Medications: None given [...] during this recording. CSF Alzheimer's Disease Biomarkers ([facility] Phospho-tau) from 01/2020 A-Beta 42: 573 [...] therapy and PT! 3. See what the [facility] feels about the thoracic pain tomorrow- pending that- we may consider referring you to our spine dept 4. Keep the medications the same for now Follow up pending the results from the above-- potentially 3 months I spent a total of 40 minutes on the date of service which included fncy-cq-fwre patient care and counseling and educating the patient/spouse. Laisha Lizarraga, MSN, DANCE ENTERTAINER-C, CNRN CC: 1. No primary care provider on file., (fax) None documented in this encounterOur Lady Of [facility]08-08-2024 NoteOur Lady Of Mer[facility]08-07-2024 Telephone encounter Note* Telephone Encounter - Bety Henry - 03/24/2024 1:36 PM EDT Request a 30 day emergency supply (script) of Latanoprost be sent to the [facility] . I will be out of this medication in 3 to 4 days and [facility] will not fill the existing script until 04 April and I will not receive it until about April 16. Please advise me that this message has been received and the script sent to [facility]. Thank you, Humza Carrington MD filed at [...] - exotropia on cover/uncover - refer to quality lab technician for prism # dementia - possible [...] of its relevant components. Humza Camejo MD [facility] Work Phone: [phone]) 168-103408-07-2024 Miscellaneous Notes* Telephone Encounter - Bety Henry - 03/24/2024 1:36 PM EDT Request a 30 day emergency supply (script) of Latanoprost be sent to the [facility] . I will be out of this medication in 3 to 4 days and [facility] will not fill the existing script until 04 April and I will not receive it until about April 16. Please advise me that this message has been received and the script sent to [facility]. Thank you, Humza Carrington MD filed at [...] - exotropia on cover/uncover - refer to quality lab technician for prism # dementia - possible [...] and agree withall of its relevant components. Huzma Camejo MD documented in this encounterOur Lady Of Mercy [facility]07-26-2024 Telephone encounter Note * Telephone Encounter - Laisha Lizarraga APRN.CNP - 03/12/2024 12:08 PM EDT The following approved medication requests have been transmitted electronically. Requested Prescriptions Signed Prescriptions Disp Refills donepezil (ARICEPT) 10 mg tablet 90 tablet 3 Sig: Take 1 tablet by mouth daily with breakfast. Authorizing Provider: LAISHA LIZARRAGA APRN.CNP [facility]-26-2024 Miscellaneous Notes* Telephone Encounter - Laisha Lizarraga APRN.CNP - 03/12/2024 12:08 PM EDT The following approved medication requests have been transmitted electronically. Requested Prescriptions Signed Prescriptions Disp Refills donepezil (ARICEPT) 10 mg tablet 90 tablet 3 Sig: Take 1 tablet by mouth daily with breakfast. Authorizing Provider: LAISHA LIZARRAGA APRN.CNP documented in this encounterOur Lady Of [facility]05-10-2024 Telephone encounter Note * Telephone Encounter - Bety Henyr - 12/26/2023 3:53 PM EDT Patient's request [...] - exotropia on cover/uncover - refer to quality lab technician for prism # dementia - possible [...] of its relevant components. Humza Camejo MD [facility] Work Phone: [phone]) 597-182505-10-2024 Miscellaneous Notes* Telephone Encounter - Moody PowerBety [...] - exotropia on cover/uncover - refer to quality lab technician for prism # dementia - possible [...] and agree withall of its relevant components. Hmuza Camejo MD documented in this encounterOur Lady Of Mer[facility]05-10-2024 Telephone encounter Note * Telephone Encounter - Romero Ojeda PA-C - 12/26/2023 10:22 AM EDT The following approved medication requests have been transmitted electronically. Requested Prescriptions Signed Prescriptions Disp Refills donepezil (ARICEPT) 10 mg tablet 90 tablet 3 Sig: TAKE 1 TABLET BY MOUTH DAILY WITH BREAKFAST Authorizing Provider: LAISHA LIZARRAGA Ordering User: ROMERO OJEDA PA-C [facility] Work Phone: [phone]) 807-742705-10-2024 Miscellaneous Notes* Telephone Encounter - Romero Ojeda PA-C - 12/26/2023 10:22 AM EDT The following approved medication requests have been transmitted electronically. Requested Prescriptions Signed Prescriptions Disp Refills donepezil (ARICEPT) 10 mg tablet 90 tablet 3 Sig: TAKE 1 TABLET BY MOUTH DAILY WITH BREAKFAST Authorizing Provider: LAISHA LIZARRAGA Ordering User: ROMERO OJEDA PA-C documented in this encounterOur Lady Of Mercy [facility]04-04-2024 Discharge summary Author Aquiles Fang [facility] November 20, 2023 8:31am Note Date/Time November 20, 2023 8:31 am [facility] Physical Therapy [facility] [address] [place] [address] [address] [place] [address] / REHABILITATION SERVICES DISCHARGE SUMMARY MR#: [id number] Acct: [id number] Name: LAUREN ALCARAZ Rep #: [id number] : 1940 83 From: Aquiles DAVIS T Referring Dr.: Dr. Porfirio Bloom MD Status: REG RCR Insurance: MEDICARE PART A B [place] [id number] Patient Information Patient Information: LAUREN ALCARAZ was [...] was in need and Ireferred her to [facility]. I did talk with her [...] Dr. Chema Perry MD ~ CLS Signed 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 DLB + vascular disease - follow neurology, continue documented in this encounterOur Lady Of Mercy [facility]03-11-2024 Miscellaneous Notes* Addendum Note - Humza Camejo MD - 10/27/2023 3:57 PM EDTAddended by: HUMZA CAMEJO on: 10/27/2023 03:57 PM Modules accepted: Orders * Addendum Note - Humza Camejo MD - 10/27/2023 3:55 PM EDTAddended by: HUMZA CAMEJO on: 10/27/2023 03:55 PM Modules accepted: Orders documented in this encounterOur Lady Of [facility]03-11-2024 Instructions* Patient Instructions* Humza Camejo MD - 10/27/2023 3:48 PM EDT You will be dilated on your next visit. This will likely make your vision blurry for several hours, and you should strongly consider bringing a jukebox route driver. Tmax: <21 per outside; Pachy: 550, [...] - exotropia on cover/uncover - refer to quality lab technician for prism # dementia - possible [...] components. Humza Camejo MD documented in this encounterOur Lady Of Mer[facility]03-11-2024 History of Present illness Narrative* Humza Camejo [...] - exotropia on cover/uncover - refer to quality lab technician for prism # dementia - possible [...] components. Humza Camejo MD documented in this encounterOur Lady Of [facility]02-29-2024 Instructions* Patient Instructions* Laisha Lizarraga APRN.CNP - [...] up in 4-6 months documented in this encounterOur Lady Of Mercy [facility]02-29-2024 History of Present illness Narrative* Laisha Lizarraga APRN.CNP - 10/16/2023 2:30 PM EST Lauren Alcaraz 1940 [address] [facility] [address] [facility] [address] October 16, 2023 [facility] FOLLOW-UP NOTE Accompanied by: [...] from 2007 DATE: June 15, 2008 NO: [id number] Indication: Question of seizure Medications: None given [...] on the date of service which included fqta-lz-tmon patient care and counseling and educating the patient/spouse. Laisha Lizarraga, MSN, DANCE ENTERTAINER-C, CNRN CC: 1. No primary care provider on file., (fax) None documented in this encounterOur Lady Of Mercy [facility]10-30-2023 Instructions* Patient Instructions* Laisha Lizarraga APRN.ADMINISTRATIVE JOB TITLES - 06/16/2023 2:32 PM EDT See what [...] up in 4-6 months documented in this encounterOur Lady Of Mer[facility]10-30-2023 History of Present illness Narrative* Laisha Lizarraga APRN.ALBERT - 06/16/2023 1:45 PM EDT Lauren Alcaraz 1940 [address] [facility] [address] [facility] [address] June 16, 2023 [facility] [...] vision lately, which she has seen her Heel Seat Filler about and who has ordered her a [...] from 2007 DATE: June 15, 2008 NO: [id number] Indication: Question of seizure Medications: None given [...] during this recording. CSF Alzheimer's Disease Biomarkers ([facility] Phospho-tau) from 01/2020 A-Beta 42: 573 [...] on the date of service which included lcvr-xa-dgsu patient care and counseling and educating the patient/spouse. Laisha Lizarraga, MSN, DANCE ENTERTAINER-C, CNRN CC: 1. No primary care provider on file., (fax) None documented in this [facility]10-30-2023 Nurse Note* Lisbeth Rob - 06/16/2023 [...] Unknown) BMI 21.41 kg/m documented in this [facility]10-06-2023 Miscellaneous Notes* Telephone Encounter - Romero Ojeda PA-C - 05/23/2023 4:04 PM EDT The following approved medication requests have been transmitted electronically. Requested Prescriptions Signed Prescriptions Disp Refills donepezil (ARICEPT) 5 mg tablet 90 tablet 1 Sig: Take 1 tablet by mouth daily with breakfast. Authorizing Provider: LAISHA LIZARRAGA Ordering User: ROMERO OJEDA PA-C documented in this [facility]08-22-2023 Miscellaneous Notes* Telephone Encounter - Laisha Lizarraga APRN.CNP - 04/08/2023 4:32 PM EDT The following approved medication requests have been transmitted electronically. Requested Prescriptions Signed Prescriptions Disp Refills donepezil (ARICEPT) 5 mg tablet 90 tablet 1 Sig: Take 1 tablet by mouth daily with breakfast. Laisha Lizarraga APRN.CNP documented in this encounterOur Lady Of [facility]08-16-2023 Evaluation note* Diagnosis Onset Date Resolution Status Pain of left lower extremity acute Bronchiectasis acute Hypoxemia acute ERIS (obstructive sleep apnea) chronic Breast lump on left side at 1 o'clock position acute Left knee pain acute Restless leg syndrome chroni c Atherosclerotic heart diseas e of [place] coronary artery without angina pectoris acute Essential hypertension acute Lightheadedness acute Hyperlipidemia chronic Mass of upper inner quadrant of left breast acute Contusion of thoracic wall a cute Lumbar contusion acute Atherosclerotic heart diseas e of [place] coronary artery without angina pectoris acute Cancer acute Essential hypertension acute Hyperlipidemia acute Hypothyroidism acute Mass of upper inner quadrant of left breast acute Presence of stent in coronary artery acute Right inguinal hernia acute Vitamin B 12 deficiency acut e Gastroesophageal reflux disease chronic ERIS (obstructive sleep apnea) chronic Restless leg syndrome chroni c Sternal deformity acute Bee sting acute [facility] Work Phone: 1(603) 661-459007-18-2023 Evaluation note* Diagnosis Onset Date Resolution Status Pain of left lower extremity acute Bronchiectasis acute Hypoxemia acute ERIS (obstructive sleep apnea) chronic Breast lump on left side at 1 o'clock position acute Left knee pain acute Restless leg syndrome chroni c Atherosclerotic heart diseas e of [place] coronary artery without angina pectoris acute Essential hypertension acute Lightheadedness acute Hyperlipidemia chronic Mass of upper inner quadrant of left breast acute Contusion of thoracic wall a cute Lumbar contusion acute Atherosclerotic heart diseas e of [place] coronary artery without angina pectoris acute Cancer acute Essential hypertension acute Hyperlipidemia acute Hypothyroidism acute Mass of upper inner quadrant of left breast acute Presence of stent in coronary artery acute Right inguinal hernia acute Vitamin B 12 deficiency acut e Gastroesophageal reflux disease chronic ERIS (obstructive sleep apnea) chronic Restless leg syndrome chroni c Sternal deformity acute [facility] Work Phone: 1(197) 352-861406-28-2023 Discharge summary Author Jerri Boyd [facility] February 12, 2023 1:48pm Note Date/Time February 12, 2023 1:48 pm [facility] Occupational Therapy [facility] [address] [place] [address] / REHABILITATION SERVICES DISCHARGE SUMMARY MR#: [id number] Acct: [id number] Name: LAUREN ALCARAZ Rep #: [id number] : 1940 82 From: Jerri MACARIO/MYLA Valle [...] Improvement % Improvement: 15 Objective Objective/Function: right darkroom worker strength 45# left 30# left lateral pinch 4# and tripod pinch 6# pt has not made gains in left darkroom worker strength and at this time is d/c. with HEP. pt has hx of left intra-articular fx of left distal radius as well as left thumbinstability this may be limiting pts strength as her darkroom worker strength is same from 2021 - pt [...] please fell free to call me at [phone]. Thank you for the referral of this patient. Sincerely, RENALDO Encarnacion/SHILOH ValleT <Electronically signed by Jerri MACARIO/MYLA Valle> 02/12/23 1348 CC: Dr. Chema Perry MD ~ MK Signed [facility] Work Phone: 1(946) 516-726506-06-2023 Discharge summary Author Gunnar Graves [facility] January 21, 2023 2:08pm Note Date/Time January 21, 2023 2:08p m [facility] Physical Therapy [facility] [address] [place] [address] / REHABILITATION SERVICES DISCHARGE SUMMARY MR#: [id number] Acct: [id number] Name: LAUREN ALCARAZ Rep #: [id number] : 1940 82 From: Gunnar Graves PT, ATC Referring Dr.: Dr. Chema Perry MD Status: REG RCR Insurance: MEDICARE PART A B [id number] [id number] It has been my pleasure to treat [...] please feel free to call me at [phone]. Thank you for the referral of thispatient. Sincerely, Gunnar Graves PT, ATC Balance/Gait/Functional tests - Balance/Special Test Scores Lower Extremity Functional Score: 19 <Electronically signed by Gunnar Graves PT ATC> 01/21/23 1408 CC: Dr. Chema Perry MD; Dr. Arun Ramos MD ~ [facility] Signed [facility] Work Phone: 1(203) 138-888504-19-2023 History of Present illness Narrative* Dina Jerry, [...] 04, 2022 2:15 PM documented in this encounterOur [facility]-29-[facility] Instructions* Patient Instructions* Laisha Lizarraga APRN.CNP - [...] last scan in 2019 - can call [phone] or schedule at the [facility] desk 4. Please ambulate with caution! Follow up in about 3 months to recheck on things or sooner if tests are done earlier documented in this encounterOur Lady Of [facility]03-29-2023 Nurse Note* Lisbeth Rob - 11/13/2022 1:00 [...] Unknown) BMI 22.22 kg/m documented in this encounterOur Lady Of [facility]03-29-2023 History of Present illness Narrative* Laisha Lizarraga APRN.ADMINISTRATIVE JOB TITLES - 11/13/2022 7:56 AM EDT Lauren Alcaraz 1940 [address] [place] [address] November 13, 2022 [facility] [...] may be helping- someone down in the [place] area linked w/ her other therapies She [...] resources to help care for yourself? 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 Yes [...] from 2007 DATE: June 15, 2008 NO: [id number] Indication: Question of seizure Medications: None given [...] last scan in 2019 - can call [phone] or schedule at the [facility] desk 4. Please ambulate with caution! Follow up in about 3 months to recheck on things or sooner if tests are done earlier I spent a total of 40 minutes on the date of service which included zstk-rd-xoyv patient care and counseling and educating the patient/spouse. Laisha Lizarraga, MSN, DANCE ENTERTAINER-C, CNRN CC: 1. Chema Perry MD, (fax) [phone] documented in this encounterOur Lady Of [facility]03-01-[address] Keith [facility] October 16, 2022 8:20pm Note Date/Time October 16, 2022 6:53 pm [facility] Medical Records Department [address] [place] [address] Emergency Department Summary 10/16/22 MR#: [id number] Acct: [id number] Name: LAUREN ALCARAZ Rep #: [id number] : 1940 82 From: Cal Keith MD PCP: Dr. Chema Perry MD Status:REG ER Location: ED HPI History of Present Illness Chief Complaint: Upper Extremity Injury Narrative Narrative: 82-year-old female, essentially xeczv-disr-etjdawss, presents with pain and swelling of her [...] with movement. It is relieved by nothing. [facility] Medical History aquired autoimmune encephalopathy Arthritis Asthma Atherosclerotic heart disease of [place] coronary artery without angina pectoris Back pain [...] mg/mL subcutaneous syringe (Prolia) 60 mg subcut [id number] 06/07/22 [History Last Taken Unknown] famotidine 10 [...] Prolia 60 mg/mL syringe 60 mg subcut [id number] d-mannose 500 mg capsule 500 mg PO [...] As soon as possible Shiraz Blanchard DO [[facility] Staff - Active Staff] - 1 Day Disposition Disposition: Home, Self Care What to do if you have Problems For any increased pain, shortness of breath, bleeding, nausea or vomiting, chestpain, or any unexpected problems, contact your Primary Care Provider. Call [facility] ([phone]) or report to the closest Emergency Room. Call 911 if necessary. 10/16/222019 <Electronically signed by Cal Keith MD> Cosigner Signature (if applicable): CC: Dr. Ernesto Logan DO; Dr. Chema Perry MD; Dr. Shiraz Blanchard DO ~ Signed [facility] Work Phone: [phone]) 239-591512-29-2022 Discharge summary Author Gunnar Hartzler [facility] August 15, 2022 12:04pm Note Date/Time August 15, 2022 12:04pm [facility] Physical Therapy [facility] [address] [place] [address] / REHABILITATION SERVICES DISCHARGE SUMMARY MR#: [id number] Acct: [id number] Name: LAUREN ALCARAZ Rep #: [id number] : 1940 81 From: Gunnar Graves PT, ATC Referring Dr.: Dr. Arun Ramos MD Status: REG RCR Insurance: MEDICARE PART A B [place] [id number] It has been my pleasure to treat [...] please feel free to call me at [phone]. Thank you for the referral of thispatient. Sincerely, Gunnar Graves, PT, ATC Balance/Gait/Functional tests - Balance/Special Test Scores Lower Extremity Functional Score: 41 <Electronically signed by Gunnar Graves PT, ATC> 08/15/22 1200 CC: Dr. Chema Perry MD; Dr. Arun Ramos MD ~ [facility] Signed [facility] Work Phone: 1([phone]) 403-636508-25-2022 Instructions* Patient Instructions* Laisha Lizarraga APRN.CNP - 04/11/2022 1:39 PM EDT Let's consider having you try some Cognitive Therapy (cognitive-linguistic speech therapy) sessionsthat may help with some of the cognitive issues that you're still dealing with- may help with word-finding, mental calculation, and other things. The main scheduling number is [phone] and some of the therapists are below: Jeny Leonard, CORPORATE TAX PREPARER at [facility] - call [phone] Sydni Johnson, CORPORATE TAX PREPARER -- [facility], Desk C22 (appt [phone]) Kinza Handley, CORPORATE TAX PREPARER at [facility] ([phone]) Kenneth Reinoso) Tierra at [facility] ([phone]) Sandra Goode at [facility] ([phone]) Ale Lopez, CORPORATE TAX PREPARER at [facility] ([phone]) Emily Ruvalcaba, CORPORATE TAX PREPARER at [facility] ([phone] ph; [phone] fax) Sydni Moreno, CORPORATE TAX PREPARER -- [facility] [place] ([phone]) Chata Patel, CORPORATE TAX PREPARER -- [place] ([phone]) 2. I'd hold off on starting a medication like donepezil (Aricept) - I don't think this stands to help much 3 . try to keep the back pain under control however they recommend 4. Continue the cranberry supplement and watch for UTIs Follow up in about 6 months to recheck on things documented in this encounterOur Lady Of [facility]08-25-2022 History of Present illness Narrative* Laisha Lizarraga APRN.CNP - 04/11/2022 1:00 PM EDT Lauren Alcaraz 1940 [address] [facility] [address] April 11, 2022 [facility] FOLLOW-UP NOTE Accompanied by: [...] was previously staying at [facility] -- some gait-freezing noted from the in-home PT therapists No changes in plan of care were made at last visit Today, Lauren and her spouse Delroy return for a follow up visit She actually did have a fall at the end of February - they were going to see the opera in [place] and she got out of the car [...] from 2007 DATE: June 15, 2008 NO: [id number] Indication: Question of seizure Medications: None given [...] other things. The main scheduling number is [phone] and some of the therapists are below: Jeny Leonard, CORPORATE TAX PREPARER at [facility] - call [phone] Sydni Johnson, CORPORATE TAX PREPARER -- [facility], Desk C22 (appt [phone]) Kinza Handley, CORPORATE TAX PREPARER at [facility] ([phone]) Kenneth Mayorga (Tricia) at [facility] ([phone]) Sandra Goode at [facility] ([phone]) Ale Lopez, CORPORATE TAX PREPARER at [facility] ([phone]) Emily Ruvalcaba, CORPORATE TAX PREPARER at [facility] ([phone] ph; [phone] fax) Sydni Moreno, CORPORATE TAX PREPARER -- [facility] ([phone]) Chata Patel, CORPORATE TAX PREPARER -- [place] ([phone]) 2. I'd hold off on starting a [...] on the date of service which included wqrt-va-nosm patient care and counseling and educating the patient/spouse. Laisha Lizarraga, OSORIO, DANCE ENTERTAINER-C, CNRN documented in this encounterOur Lady Of [facility]08-25-2022 Nurse Note* Layne Leon LPN - 04/11/2022 [...] Unknown) BMI 23.63 kg/m documented in this encounterOur Lady Of [facility]06-08-2022 Instructions* Patient Instructions* Laisha Lizarraga APRN.CNP - [...] to recheck on things documented in this encounterOur Lady Of [facility]06-08-2022 History of Present illness Narrative* Mitchel Muse MD - 01/23/2022 11:13 AM EDT Lauren Alcaraz 1940 [address] [facility] [address] January 23, 2022 [facility] FOLLOW-UP NOTE Accompanied by: [...] spent some time at [facility] and some of her medications were discontinued by her Straightener Dr. Ramos. Today, Lauren and her spouse Delroy return for a routine follow up visit. She has been back home since mid-November - was previously staying at [facility]. Delroy reports that the Physical Therapists [...] Never Social History reviewed by Laisha Lizarraga APRN.ADMINISTRATIVE JOB TITLES PATIENT-ENTERED DATA Patient-Reported 01/17/2022 11/07/2021 Where are you currently living? Home / Private residence alf / intermediate facility Are you using any community resources [...] from 2007 DATE: June 15, 2008 NO: [id number] Indication: Question of seizure Medications: None given [...] on the date of service which included yiqa-db-aymw patient care and counseling and educating the patient/spouse. Dr. Muse was present for this visit and is in agreement with the plan stated above. He did perform the neurological exam. Laisha Lizarraga, MSN, DANCE ENTERTAINER-C, CNRN History, previous evaluations and examination reviewed [...] which included preparing to see the patient, zftq-yk-fldd patient care, completing clinical documentation, obtaining and/or reviewing separately obtained history, performing a medically appropriate examination, counseling and educating the pat ient/family/caregiver and ordering medications, tests, or procedures. documented in this [facility]06-08-2022 Nurse Note* Layne Leon LPN - [...] Unknown) BMI 24.04 kg/m documented in this [facility]03-29-2022 Instructions* Patient Instructions* Laisha Lizarraga APRN.CNP [...] Dr. Muse in January documented in this [facility]03-29-2022 History of Present illness Narrative* Laisha Lizarraga APRN.CNP - 11/13/2021 11:30 AM EDT Lauren Alcaraz 1940 [address] [facility] [address] November 13, 2021 [facility] FOLLOW-UP NOTE Accompanied by: [...] hospitalized and transferred to transitional care in [place] where she contracted Covid-19, she remained at that care facility for approximately one month.. Upon leaving transitional care, pt was returned to hospital d/t spouses inability to care at the level required, pt transferred [facility] [place] where she currently has been since. Pt [...] 11/07/2021 10/04/2021 Where are you currently living? alf / intermediate facility Home / Private residence Are you using any community resources to help care for yourself? 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 Yes [...] Normocephalic/atraumatic. Neurological Exam: Cognition: alert and cooperative [place] Cognitive Assessment (MoCA) Version 1 Total Score: [...] from 2007 DATE: June 15, 2008 NO: [id number] Indication: Question of seizure Medications: None given [...] on the date of service which included elfl-hx-dvvs patient care and counseling and educating the patient/spouse. This note was generated with the assistance of Isma Torres, ADMINISTRATIVE JOB TITLES Student. I was present for the entirety of the visit and participated in the interview and formulation of plan. Laisha Lizarraga, MSN, DANCE ENTERTAINER-C, CNRN documented in this encounterOur Lady Of [facility]03-29-2022 Nurse Note* Layne Leon LPN - 11/13/2021 11:15 AM EDT Lauren Alcaraz is a 81 year old year old woman accompanied by: spouse. Do you have any changes or new concerns you would like to address at the visit today? Difficulty walking,cognitive decline. Vital Signs: BP 125/68 Pulse 83 Wt 56.2 kg (124 lb) LMP (LMP Unknown) BMI 25.04 kg/m documented in this encounterOur Lady Of Mercy Hospital - AndersonChief complaint+Reason for visit Narrative* Chief Complaint ELBOW 4 M FU COVID EXPOSURE/WANTS TEST COVID-19 INT LABS LEFT KNEE PAIN XRAY LLE PAIN STAT 6 M FU knee Pain 6 m fu LEFT BREAST MASS LUMP IN L BREAST XRAY POST FALL/BACK PAIN/SWELLING XRAY CONGITIVE COMM,BALANCE,WEAKNESS RX HERE 6 M FU Reason for Visit Atherosclerotic hear t disease of [place] coronary artery without angina pectoris Debility Essential [...] Restless leg syndrome Atherosclerotic heart disease of [place] coronary artery without angina pectoris Essential hypertension Lightheadedness Hyperlipidemia Mass of upper inner quadrant of left breast Contusion of thoracic wall Lumbar contusion Atherosclerotic heart disease of [place] coronary artery without angina pectoris Cancer Essential hypertension Hyperlipidemia Hypothyroidism Mass of upper inner quadrant of left breast Presence of stent in coronary artery Right inguinal hernia Vitamin B 12 deficiency Gastroesophageal reflux disease ERIS (obstructive sleep apnea) Restless leg syndrome [facility] Work Phone: Chief complaint+Reason for visit Narrative* [...] for Visit Atherosclerotic hear t disease of [place] coronary artery without angina pectoris Debility Essential [...] Restless leg syndrome Atherosclerotic heart disease of [place] coronary artery without angina pectoris Essential hypertension Lightheadedness Hyperlipidemia Mass of upper inner quadrant of left breast Contusion of thoracic wall Lumbar contusion Atherosclerotic heart disease of [place] coronary artery without angina pectoris Cancer Essential hypertension Hyperlipidemia Hypothyroidism Mass of upper inner quadrant of left breast Presence of stent in coronary artery Right inguinal hernia Vitamin B 12 deficiency Gastroesophageal reflux disease ERIS (obstructive sleep apnea) Restless leg syndrome [facility] Work Phone: Chief complaint+Reason for visit Narrative* [...] Restless leg syndrome Atherosclerotic heart disease of [place] coronary artery without angina pectoris Essential hypertension Lightheadedness Hyperlipidemia Mass of upper inner quadrant of left breast Contusion of thoracic wall Lumbar contusion Atherosclerotic heart disease of [place] coronary artery without angina pectoris Cancer Essential hypertension Hyperlipidemia Hypothyroidism Mass of upper inner quadrant of left breast Presence of stent in coronary artery Right inguinal hernia Vitamin B 12 deficiency Gastroesophageal reflux disease ERIS (obstructive sleep apnea) Restless leg syndrome Sternal deformity [facility] Work Phone: Discharge summary Author Isma Bustamante [facility] Note Date/Time February 03, 2025 7:58 am [facility] Health System Medical Records Department [address] [place] [address] Emergency Department Summary 02/03/25 MR#: [id number] Acct: [id number] Name: LAUREN ALCARAZ Rep #: [id number] : 1940 84 From: Isma Bustamante DO [...] in for evaluation. [facility] Medical History (Updated 02/03/25 @ 07:58 by [...] coronary artery (~1989) Atherosclerotic heart disease of [place] coronary artery without angina pectoris Essential hypertension [...] denosumab 60 mg/mL subcutaneous 60 mg subcut [id number] #1 mL 01/24/25 Unknown Rx syringe (Prolia) [...] changes of the humeral head. Reading Location: [place] [address] X-ray of the right shoulder as interpreted by the emergency medicine physician reveals a fracture to the distal aspect of the right clavicle with cranial displacement. No obvious joint effusion or shoulder dislocation Discharge Plan Triage Chief Complaint: Upper Extremity Injury ED Provider: Isma Bustamante Dx/Rx/DC Orders Clinical Impression: Closed fracture of right clavicle, Essential hypertension, Hyperlipidemia, Hypothyroidism, Current use of director long term care anticoagulation Instructions: ED Fracture, Clavicle Prescriptions: New [...] .MEDSUPPLY Rx Instructions: Bd SYR/leticia Eclipse 3ml #5755 BD Sry/needle eclips See Rx Instructions IM .COMPLEX Qty: 12 0RF Rx Instructions: intramuscularly; 3ml #[id number] uses 1 a month (DME) PEP device [...] Rx Instructions: Can be administered at [facility] [place] Prolia 60 mg/mL syringe 60 mg subcut [id number] Qty: 1 5RF Primary Care Provider: Chema [...] you have any further concerns Print Language: Syriac Disposition Disposition: Home, Self Care What to do if you have Problems For any increased pain, shortness of breath, bleeding, nausea or vomiting, chestpain, or any unexpected problems, contact your Primary Care Provider. Call [facility] ([phone]) or report to the closest Emergency Room. Call 911 if necessary. 02/03/25 0758 <Electronically signed by Isma Bustamante DO> Cosigner Signature (if applicable): CC: Dr. Chema Perry MD ~ Signed [facility] Work Phone: Evaluation note* Diagnosis Dementia without behavioral disturbance, unspecified dementia type (HCC)- Primary History of complex partial epilepsy Personal history of other disorders of nervous system and sense organs Gait instability Abnormality of gait Multiple falls Personal history of fall Depression, unspecified depression type Anxiety Anxiety state, unspecified Physical deconditioning Debility, unspecified documented in this encounter [facility]* Diagnosis Onset Date Resolution Status Bronchiectasis [...] ERIS (obstructive sleep apnea) chronic COVID-19 resolved [facility] Work Phone: Evaluation note* Diagnosis Dementia without behavioral disturbance, unspecified dementia type (HCC)- Primary History of complex partial epilepsy Personal history of other disorders of nervous system and sense organs Gait instability Abnormality of gait Multiple falls Personal history of fall Depression, unspecified depression type Anxiety Anxiety state, unspecified Physical deconditioning Debility, unspecified documented in this encounter [facility]* Diagnosis Onset Date Resolution Status Bronchiectasis acute Hiatal hernia acute ERIS (obstructive sleep apnea) chronic COVID-19 resolved Bronchiectasis acute Shortness of breath on exertion acute COVID-19 resolved [facility] Work Phone: Evaluation note* Diagnosis Onset Date Resolution Status Bronchiectasis acute Shortness of breath on exertion acute COVID-19 resolved [facility] Work Phone: Evaluation note* Diagnosis Dementia without behavioral disturbance, unspecified dementia type ([facility])- Primary History of complex partial epilepsy Personal history of other disorders of nervous system and sense organs Gait instability Abnormality of gait Multiple falls Personal history of fall Physical deconditioning Debility, unspecified Cognitive communication deficit documented in this encounter [facility]* Diagnosis Onset Date Resolution Status Debility acute Falls frequently acute Hyperlipidemia acute Hypothyroidism acute Overactive bladder acute Gastroesophageal reflux disease chronic ERIS (obstructive sleep apnea) chronic Seizure disorder chronic Encounter to establish care noneactive Bronchiectasis acute Hypoxemia acute ERIS (obstructive sleep apnea) chronic Intermittent constipation ac [place] Leg edema, left acute Varicose veins of both legs with edema acute Debility acute Lightheadedness acute Overactive bladder acute Atherosclerotic heart diseas e of [place] coronary artery without angina pectoris acute Essential hypertension acute Presence of stent in coronary artery acute Hyperlipidemia chronic Bronchiectasis acute Hypoxemia acute Abdominal wall hernia acute Essential hypertension acute Restless leg syndrome chroni c Seizure disorder chronic Acute bronchitis acute [facility] Work Phone: Evaluation note* Diagnosis Onset Date Resolution Status Bronchiectasis acute Hypoxemia acute ERIS (obstructive sleep apnea) chronic Intermittent constipation ac [place] Leg edema, left acute Varicose veins of both legs with edema acute Debility acute Lightheadedness acute Overactive bladder acute Atherosclerotic heart diseas e of [place] coronary artery without angina pectoris acute Essential hypertension acute Presence of stent in coronary artery acute Hyperlipidemia chronic Bronchiectasis acute Hypoxemia acute Abdominal wall hernia acute Essential hypertension acute Restless leg syndrome chroni c Seizure disorder chronic Acute bronchitis acute 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 Debility acute Lightheadedness acute Overactive bladder acute Atherosclerotic heart diseas e of [place] coronary artery without angina pectoris acute Essential hypertension acute Presence of stent in coronary artery acute Hyperlipidemia chronic Bronchiectasis acute Hypoxemia acute Abdominal wall hernia acute Essential hypertension acute Restless leg syndrome chroni c Seizure disorder chronic Acute bronchitis acute Right inguinal hernia acute Fall (on)(from) incline, subsequent encounter acute Visit for suture removal acu [facility] Work Phone: Evaluation note* Diagnosis Onset Date Resolution Status Atherosclerotic heart diseas e of [place] coronary artery without angina pectoris acute Essential hypertension acute Presence of stent in coronary artery acute Hyperlipidemia chronic Bronchiectasis acute Hypoxemia acute Abdominal wall hernia acute Essential hypertension acute Restless leg syndrome chroni c Seizure disorder chronic Acute bronchitis acute Right inguinal hernia acute Fall (on)(from) incline, subsequent encounter acute Visit for suture removal acu [facility] Work Phone: Evaluation note* Diagnosis Onset Date Resolution Status Atherosclerotic heart diseas e of [place] coronary artery without angina pectoris acute Essential [...] Left elbow contusion acute Scalp contusion acute [facility] Work Phone: Evaluation note* Diagnosis Onset [...] Left elbow contusion acute Scalp contusion acute [facility] Work Phone: Evaluation note* Diagnosis Dementia without [...] Abnormality of gait documented [facility] this [facility] [facility]* Diagnosis Onset Date Resolution Status Contusion of left shoulder a cute Contusion of left wrist acut e Left elbow contusion acute Scalp contusion acute Atherosclerotic heart diseas e of [place] coronary artery without angina pectoris acute Debility acute Essential hypertension acute Falls frequently acute Hyperlipidemia acute Hypothyroidism acute Lightheadedness acute Overactive bladder acute Seizure disorder acute Vascular dementia acute Vitamin B 12 deficiency acut e Vitamin D deficiency resolve d Contact with and (suspected) exposure to other viral communicable diseases acute [facility] Work Phone: Evaluation note* Diagnosis Onset Date Resolution Status Contusion of left shoulder a cute Contusion of left wrist acut e Left elbow contusion acute Scalp contusion acute Atherosclerotic heart diseas e of [place] coronary artery without angina pectoris acute Debility [...] chroni c Atherosclerotic heart diseas e of [place] coronary artery without angina pectoris acute Essential hypertension acute Lightheadedness acute Hyperlipidemia chronic Mass of upper inner quadrant of left breast acute [facility] Work Phone: Evaluation note* Diagnosis Onset Date Resolution Status Atherosclerotic heart diseas e of [place] coronary artery without angina pectoris acute Debility [...] chroni c Atherosclerotic heart diseas e of [place] coronary artery without angina pectoris acute Essential hypertension acute Lightheadedness acute Hyperlipidemia chronic Mass of upper inner quadrant of left breast acute Contusion of thoracic wall a cute Lumbar contusion acute Atherosclerotic heart diseas e of [place] coronary artery without angina pectoris acute Cancer acute Essential hypertension acute Hyperlipidemia acute Hypothyroidism acute Mass of upper inner quadrant of left breast acute Presence of stent in coronary artery acute Right inguinal hernia acute Vitamin B 12 deficiency acut e Gastroesophageal reflux disease chronic ERIS (obstructive sleep apnea) chronic Restless leg syndrome chroni c 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, psychotic disturbance, mood disturbance, or anxiety (HCC) [facility] Diagnosis Onset Date Resolution Status Atherosclerotic heart diseas e of [place] coronary artery without angina pectoris acute Essential hypertension acute Lightheadedness acute Hyperlipidemia chronic Mass of upper inner quadrant of left breast acute Contusion of thoracic wall a cute Lumbar contusion acute Atherosclerotic heart diseas e of [place] coronary artery without angina pectoris acute Cancer [...] Bee sting acute Bronchiectasis acute Hypoxemia chronic [facility] Work Phone: Evaluation note* Diagnosis Onset Date Resolution Status Sternal deformity acute Bee sting acute Bronchiectasis acute Hypoxemia chronic Atherosclerotic heart diseas e of [place] coronary artery without angina pectoris acute ALEXANDER (dyspnea on exertion) ac [place] Hyperlipidemia [facility] Work Phone: Evaluation note* Diagnosis Mild [...] influencing health status [facility] Diagnosis Onset Date Resolution Status Bee sting acute Bronchiectasis acute Hypoxemia chronic Atherosclerotic heart diseas e of [place] coronary artery without angina pectoris acute ALEXANDER (dyspnea on exertion) [place] Hyperlipidemia chronic 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, psychotic disturbance, mood disturbance, or anxiety (HCC)- Primary History of complex partial epilepsy Personal history of other disorders of nervous system and sense organs Physical deconditioning Debility, unspecified Gait instability Abnormality of gait Fine motor impairment Other specified conditions influencing health status [facility]* Diagnosis Onset Date Resolution Status Atherosclerotic heart diseas e of [place] coronary artery without angina pectoris acute Debility acute Essential hypertension acute Falls frequently acute Hiatal hernia acute Hyperlipidemia acute Restless leg syndrome acute Right inguinal hernia acute Vascular dementia acute Difficulty swallowing chroni c Hiatal hernia acute Mass of upper inner quadrant of left breast acute Sternal deformity acute Osteoporosis chronic Bronchiectasis acute Hypoxemia [facility] Work Phone: Evaluation note* Diagnosis Primary open angle glaucoma (POAG) of both eyes, severe stage- Primary [facility]* Diagnosis Onset Date Resolution Status Atherosclerotic heart diseas e of [place] coronary artery without angina pectoris acute Debility acute Essential hypertension acute Falls frequently acute Hiatal hernia acute Hyperlipidemia acute Restless leg syndrome acute Right inguinal hernia acute Vascular dementia acute Difficulty swallowing chroni c Hiatal hernia acute Mass of upper inner quadrant of left breast acute Sternal deformity acute Osteoporosis chronic Bronchiectasis acute Hypoxemia chronic Atherosclerotic heart diseas e of [place] coronary artery without angina pectoris acute Dizziness acute Hyperlipidemia [facility] Work Phone: Evaluation note* Diagnosis Onset Date Resolution Status Hiatal hernia acute Mass of upper inner quadrant of left breast acute Sternal deformity acute Osteoporosis chronic Bronchiectasis acute Hypoxemia chronic Atherosclerotic heart diseas e of [place] coronary artery without angina pectoris acute Dizziness acute Hyperlipidemia [facility] Work Phone: Evaluation note* Diagnosis 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, psychotic disturbance, mood disturbance, or anxiety (HCC) [facility]* Diagnosis 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, psychotic disturbance, mood disturbance, or anxiety (HCC) [facility]* Diagnosis 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, psychotic disturbance, mood disturbance, or anxiety (HCC)- Primary Physical deconditioning Debility, unspecified Gait instability Abnormality of gait Fine motor impairment Other specified conditions influencing health status Dizziness Dizziness and giddiness Depression, unspecified depression type 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) (postural) [facility]* Diagnosis Primary open angle glaucoma (POAG) of both eyes, severe stage [facility]* Diagnosis 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) Dementia, unspecified, without behavioral disturbance [facility]* Diagnosis Hiatal hernia- Primary Diaphragmatic hernia without mention of obstruction or gangrene Gastroesophageal reflux disease, unspecified whether esophagitis present [facility]* Diagnosis H/O acute myocardial infarction- Primary Old myocardial infarction Cardiomyopathy, unspecified type (HCC) Pre-op evaluation Preoperative examination, unspecified Encounter to establish care Other reasons for seeking consultation [facility] Diagnosis Hiatal hernia- Primary Diaphragmatic hernia without mention of obstruction or gangrene [facility]* Diagnosis Hiatal hernia Diaphragmatic hernia without mention of obstruction or gangrene documented in this encounter [facility] note* Diagnosis Mild mixed vascular and [...] of both feet [facility]* Diagnosis Pre-operative examination- Primary Preoperative examination, unspecified 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) Dementia, unspecified, without behavioral disturbance MS (multiple sclerosis) (HCC) Multiple sclerosis History of complex partial epilepsy Personal history of other disorders of nervous system and sense organs Restless legs syndrome Restless legs syndrome (RLS) Atherosclerosis of [place] coronary artery of [place] heart with angina pectoris (HCC) Essential hypertension [...] rx * Assessment & Plan Note - Wilal Torres APRN.CNP - 07/20/2024 1:03 PM EST [...] following [facility], last OV 11/12/2023 scanned into [facility]. Stress test 05/2023 negative for ischemia. [...] AD biomarkers negative documented in this encounter [facility] note* Diagnosis Pre-operative examination- Primary Preoperative examination, unspecified 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) Dementia, unspecified, without behavioral disturbance MS (multiple sclerosis) (HCC) Multiple sclerosis History of complex partial epilepsy Personal history of other disorders of nervous system and sense organs Restless legs syndrome Restless legs syndrome (RLS) Atherosclerosis of [place] coronary artery of [place] heart with angina pectoris (HCC) Essential hypertension [...] obstruction or gangrene documented in this encounter [facility] note* Diagnosis Pre-operative examination- Primary Preoperative examination, unspecified 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) Dementia, unspecified, without behavioral disturbance MS (multiple sclerosis) (HCC) Multiple sclerosis History of complex partial epilepsy Personal history of other disorders of nervous system and sense organs Restless legs syndrome Restless legs syndrome (RLS) Atherosclerosis of [place] coronary artery of [place] heart with angina pectoris (HCC) Essential hypertension [...] eyes, severe stage [facility]* Diagnosis Pre-operative examination- Primary Preoperative examination, unspecified 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) Dementia, unspecified, without behavioral disturbance MS (multiple sclerosis) (HCC) Multiple sclerosis History of complex partial epilepsy Personal history of other disorders of nervous system and sense organs Restless legs syndrome Restless legs syndrome (RLS) Atherosclerosis of [place] coronary artery of [place] heart with angina pectoris (HCC) Essential hypertension [...] unspecified type (HCC) documented in this encounter [facility] note* Diagnosis Pre-operative examination- Primary Preoperative examination, unspecified 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) Dementia, unspecified, without behavioral disturbance MS (multiple sclerosis) (HCC) Multiple sclerosis History of complex partial epilepsy Personal history of other disorders of nervous system and sense organs Restless legs syndrome Restless legs syndrome (RLS) Atherosclerosis of [place] coronary artery of [place] heart with angina pectoris (HCC) Essential hypertension [...] chronicity, unspecified whether acute cor pulmonale present ([facility]) Neuropathy- Primary Mononeuritis of unspecified site Paresthesia of both feet Frequent falls Personal history of fall documented in this encounter [facility] note* Diagnosis Pre-operative examination- Primary Preoperative examination, unspecified 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) Dementia, unspecified, without behavioral disturbance MS (multiple sclerosis) (HCC) Multiple sclerosis History of complex partial epilepsy Personal history of other disorders of nervous system and sense organs Restless legs syndrome Restless legs syndrome (RLS) Atherosclerosis of [place] coronary artery of [place] heart with angina pectoris (HCC) Essential hypertension [...] Preoperative examination, unspecified documented in this encounter [facility] note* Diagnosis Pre-operative examination- Primary Preoperative examination, unspecified 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) Dementia, unspecified, without behavioral disturbance MS (multiple sclerosis) (HCC) Multiple sclerosis History of complex partial epilepsy Personal history of other disorders of nervous system and sense organs Restless legs syndrome Restless legs syndrome (RLS) Atherosclerosis of [place] coronary artery of [place] heart with angina pectoris (HCC) Essential hypertension [...] Preoperative examination, unspecified documented in this encounter [facility] note* Diagnosis Pre-operative examination- Primary Preoperative examination, unspecified 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) Dementia, unspecified, without behavioral disturbance MS (multiple sclerosis) (HCC) Multiple sclerosis History of complex partial epilepsy Personal history of other disorders of nervous system and sense organs Restless legs syndrome Restless legs syndrome (RLS) Atherosclerosis of [place] coronary artery of [place] heart with angina pectoris (HCC) Essential hypertension [...] Preoperative examination, unspecified [facility] Diagnosis Pre-operative examination- Primary Preoperative examination, unspecified 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) Dementia, unspecified, without behavioral disturbance MS (multiple sclerosis) (HCC) Multiple sclerosis History of complex partial epilepsy Personal history of other disorders of nervous system and sense organs Restless legs syndrome Restless legs syndrome (RLS) Atherosclerosis of [place] coronary artery of [place] heart with angina pectoris (HCC) Essential hypertension [...] Preoperative examination, unspecified documented in this encounter [facility] note* Diagnosis Pre-operative examination- Primary Preoperative examination, unspecified 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) Dementia, unspecified, without behavioral disturbance MS (multiple sclerosis) (HCC) Multiple sclerosis History of complex partial epilepsy Personal history of other disorders of nervous system and sense organs Restless legs syndrome Restless legs syndrome (RLS) Atherosclerosis of [place] coronary artery of [place] heart with angina pectoris (HCC) Essential hypertension [...] Preoperative examination, unspecified [facility]* Diagnosis Pre-operative examination- Primary Preoperative examination, unspecified 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) Dementia, unspecified, without behavioral disturbance MS (multiple sclerosis) (HCC) Multiple sclerosis History of complex partial epilepsy Personal history of other disorders of nervous system and sense organs Restless legs syndrome Restless legs syndrome (RLS) Atherosclerosis of [place] coronary artery of [place] heart with angina pectoris (HCC) Essential hypertension [...] Preoperative examination, unspecified [facility] Diagnosis Pre-operative examination- Primary Preoperative examination, unspecified 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) Dementia, unspecified, without behavioral disturbance MS (multiple sclerosis) (HCC) Multiple sclerosis History of complex partial epilepsy Personal history of other disorders of nervous system and sense organs Restless legs syndrome Restless legs syndrome (RLS) Atherosclerosis of [place] coronary artery of [place] heart with angina pectoris (HCC) Essential hypertension [...] Preoperative examination, unspecified [facility] Diagnosis Pre-operative examination- Primary Preoperative examination, unspecified 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) Dementia, unspecified, without behavioral disturbance MS (multiple sclerosis) (HCC) Multiple sclerosis History of complex partial epilepsy Personal history of other disorders of nervous system and sense organs Restless legs syndrome Restless legs syndrome (RLS) Atherosclerosis of [place] coronary artery of [place] heart with angina pectoris ([facility]) Essential hypertension Unspecified essential hypertension Mixed hyperlipidemia [...] per Dr. Marcial. documented [facility] this [facility]* Diagnosis Pre-operative examination- Primary Preoperative examination, unspecified 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) Dementia, unspecified, without behavioral disturbance MS (multiple sclerosis) (HCC) Multiple sclerosis History of complex partial epilepsy Personal history of other disorders of nervous system and sense organs Restless legs syndrome Restless legs syndrome (RLS) Atherosclerosis of [place] coronary artery of [place] heart with angina pectoris (HCC) Essential hypertension [...] chronic pain- Primary [facility]* Diagnosis Pre-operative examination- Primary Preoperative examination, unspecified 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) Dementia, unspecified, without behavioral disturbance MS (multiple sclerosis) (HCC) Multiple sclerosis History of complex partial epilepsy Personal history of other disorders of nervous system and sense organs Restless legs syndrome Restless legs syndrome (RLS) Atherosclerosis of [place] coronary artery of [place] heart with angina pectoris (HCC) Essential hypertension [...] other specified site [facility]* Diagnosis Pre-operative examination- Primary Preoperative examination, unspecified 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) Dementia, unspecified, without behavioral disturbance MS (multiple sclerosis) (HCC) Multiple sclerosis History of complex partial epilepsy Personal history of other disorders of nervous system and sense organs Restless legs syndrome Restless legs syndrome (RLS) Atherosclerosis of [place] coronary artery of [place] heart with angina pectoris (HCC) Essential hypertension [...] of both feet [facility] Diagnosis Pre-operative examination- Primary Preoperative examination, unspecified 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) Dementia, unspecified, without behavioral disturbance MS (multiple sclerosis) (HCC) Multiple sclerosis History of complex partial epilepsy Personal history of other disorders of nervous system and sense organs Restless legs syndrome Restless legs syndrome (RLS) Atherosclerosis of [place] coronary artery of [place] heart with angina pectoris (HCC) Essential hypertension [...] malaise and fatigue documented [facility]* Diagnosis Pre-operative examination- Primary Preoperative examination, unspecified 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) Dementia, unspecified, without behavioral disturbance MS (multiple sclerosis) (HCC) Multiple sclerosis History of complex partial epilepsy Personal history of other disorders of nervous system and sense organs Restless legs syndrome Restless legs syndrome (RLS) Atherosclerosis of [place] coronary artery of [place] heart with angina pectoris (HCC) Essential hypertension [...] Other postprocedural status documented in this [facility]* Diagnosis Pre-operative examination- Primary Preoperative examination, unspecified 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) Dementia, unspecified, without behavioral disturbance MS (multiple sclerosis) (HCC) Multiple sclerosis History of complex partial epilepsy Personal history of other disorders of nervous system and sense organs Restless legs syndrome Restless legs syndrome (RLS) Atherosclerosis of [place] coronary artery of [place] heart with angina pectoris (HCC) Essential hypertension [...] eyes, severe stage documented [facility] this [facility]* Diagnosis Pre-operative examination- Primary Preoperative examination, unspecified 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) Dementia, unspecified, without behavioral disturbance MS (multiple sclerosis) (HCC) Multiple sclerosis History of complex partial epilepsy Personal history of other disorders of nervous system and sense organs Restless legs syndrome Restless legs syndrome (RLS) Atherosclerosis of [place] coronary artery of [place] heart with angina pectoris (HCC) Essential hypertension [...] Abdominal pain, generalized documented [facility]* Diagnosis Pre-operative examination- Primary Preoperative examination, unspecified 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) Dementia, unspecified, without behavioral disturbance MS (multiple sclerosis) (HCC) Multiple sclerosis History of complex partial epilepsy Personal history of other disorders of nervous system and sense organs Restless legs syndrome Restless legs syndrome (RLS) Atherosclerosis of [place] coronary artery of [place] heart with angina pectoris (HCC) Essential hypertension [...] of ulnar nerve documented in [facility] encounter [facility]* Diagnosis Pre-operative examination- Primary Preoperative examination, unspecified 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) Dementia, unspecified, without behavioral disturbance MS (multiple sclerosis) (HCC) Multiple sclerosis History of complex partial epilepsy Personal history of other disorders of nervous system and sense organs Restless legs syndrome Restless legs syndrome (RLS) Atherosclerosis of [place] coronary artery of [place] heart with angina pectoris (HCC) Essential hypertension [...] malaise and fatigue documented [facility] this [facility]* Diagnosis Pre-operative examination- Primary Preoperative examination, unspecified 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) Dementia, unspecified, without behavioral disturbance MS (multiple sclerosis) (HCC) Multiple sclerosis History of complex partial epilepsy Personal history of other disorders of nervous system and sense organs Restless legs syndrome Restless legs syndrome (RLS) Atherosclerosis of [place] coronary artery of [place] heart with angina pectoris Essential hypertension Unspecified [...] Nausea Nausea alone [facility] Diagnosis Pre-operative examination- Primary Preoperative examination, unspecified 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) Dementia, unspecified, without behavioral disturbance MS (multiple sclerosis) (HCC) Multiple sclerosis History of complex partial epilepsy Personal history of other disorders of nervous system and sense organs Restless legs syndrome Restless legs syndrome (RLS) Atherosclerosis of [place] coronary artery of [place] heart with angina pectoris Essential hypertension Unspecified [...] malaise and fatigue documented [facility]* Diagnosis Pre-operative examination- Primary Preoperative examination, unspecified 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) Dementia, unspecified, without behavioral disturbance MS (multiple sclerosis) (HCC) Multiple sclerosis History of complex partial epilepsy Personal history of other disorders of nervous system and sense organs Restless legs syndrome Restless legs syndrome (RLS) Atherosclerosis of [place] coronary artery of [place] heart with angina pectoris Essential hypertension Unspecified [...] Diarrhea, unspecified type [facility] Diagnosis Pre-operative examination- Primary Preoperative examination, unspecified 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) Dementia, unspecified, without behavioral disturbance MS (multiple sclerosis) (HCC) Multiple sclerosis History of complex partial epilepsy Personal history of other disorders of nervous system and sense organs Restless legs syndrome Restless legs syndrome (RLS) Atherosclerosis of [place] coronary artery of [place] heart with angina pectoris Essential hypertension Unspecified [...] syndrome Restless legs syndrome (RLS) Atherosclerosis of [place] coronary artery of [place] heart with angina pectoris Essential hypertension Unspecified [...] Lack of coordination [facility] Diagnosis Pre-operative examination- Primary Preoperative examination, unspecified 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) Dementia, unspecified, without behavioral disturbance MS (multiple sclerosis) (HCC) Multiple sclerosis History of complex partial epilepsy Personal history of other disorders of nervous system and sense organs Restless legs syndrome Restless legs syndrome (RLS) Atherosclerosis of [place] coronary artery of [place] heart with angina pectoris Essential hypertension Unspecified [...] daily living (ADL) documented [facility] this [facility] Diagnosis Pre-operative examination- Primary Preoperative examination, unspecified 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) Dementia, unspecified, without behavioral disturbance MS (multiple sclerosis) (HCC) Multiple sclerosis History of complex partial epilepsy Personal history of other disorders of nervous system and sense organs Restless legs syndrome Restless legs syndrome (RLS) Atherosclerosis of [place] coronary artery of [place] heart with angina pectoris Essential hypertension Unspecified [...] obstruction or gangrene [facility] Diagnosis Pre-operative examination- Primary Preoperative examination, unspecified 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) Dementia, unspecified, without behavioral disturbance MS (multiple sclerosis) (HCC) Multiple sclerosis History of complex partial epilepsy Personal history of other disorders of nervous system and sense organs Restless legs syndrome Restless legs syndrome (RLS) Atherosclerosis of [place] coronary artery of [place] heart with angina pectoris Essential hypertension Unspecified [...] initial encounter- Primary [facility] Diagnosis Pre-operative examination- Primary Preoperative examination, unspecified 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) Dementia, unspecified, without behavioral disturbance MS (multiple sclerosis) (HCC) Multiple sclerosis History of complex partial epilepsy Personal history of other disorders of nervous system and sense organs Restless legs syndrome Restless legs syndrome (RLS) Atherosclerosis of [place] coronary artery of [place] heart with angina pectoris Essential hypertension Unspecified [...] Abnormality of gait documented [facility] this [facility] Diagnosis Pre-operative examination- Primary Preoperative examination, unspecified Dementia without behavioral disturbance (HCC) Dementia, unspecified, without behavioral disturbance MS (multiple sclerosis) (HCC) Multiple sclerosis History of complex partial epilepsy Personal history of other disorders of nervous system and sense organs Restless legs syndrome Restless legs syndrome (RLS) Atherosclerosis of [place] coronary artery of [place] heart with angina pectoris Essential hypertension Unspecified [...] legs syndrome (RLS) [facility] Additional Instructions 5 sutures were placed in your scalp to stop the bleeding from the laceration. The sutures will need to be removed in 10 to 14 days. Please see your family doctor or return to the ER for suture removal. Please return for repeat evaluation if he have any further concerns [facility] Work Phone: Hospital Discharge instructions Additional Instructions Wear sling for stabilization of your fractured clavicle. Follow-up with Dr. Qunitanilla for repeat evaluation early next week and [...] D Anila De Paz MD [address] [place] [address] [facility] [address] [place] [address] Referral ID Status Reason Start Date Expiration Date Visits Requested Visits Authorized [id number] New Request Auto-Generat ed Referral 06/18/2024 06/18/2025 1 1 * Consult, Test, Treat (Routine) - Authorized Specialty Diagnoses / Procedures Referred By Vivienne hunt Referred To Contact Cardiology Diagnoses H/O acute myocardial infarction Cardiomyopathy, unspecified type (HCC) Pre-op evaluation Procedures CONSULT TO CARDIOLOGY OFFICE/OUTPATIENT [facility] 60 MINUTES Anila De Paz MD [address] [place] [address] Referral ID Status Reason Start Date Expiration Date Visits Requested Visits Authorized [id number] Authorized PCP Requested Referral 06/18/2024 06/18/2025 1 1 * Consult, Test, Treat (Routine) - Authorized Specialty Diagnoses / Procedures Referred By Vivienne hunt Referred To Contact Internal Medicine Diagnoses Pre-op evaluation Encounter to establish care Procedures CONSULT TO INTERNAL MEDICINE OFFICE/OUTPATIENT [facility] 60 MINUTES Anila De Paz MD [address] [place] [address] Referral ID Status Reason Start Date Expiration Date Visits Requested Visits Authorized [id number] Authorized PCP Requested Referral 06/18/2024 06/18/2025 1 1 [facility] for referral (narrative)* Outpatient Procedure (Routine) - Closed Specialty Diagnoses / Procedures Referred By Vivienne hunt Referred To Contact [facility] Diagnoses Hiatal hernia Procedures EGD DIAGNOSTIC ESOPHAGOGASTRODUODENOSC OPY TRANSORAL DIAGNOSTIC Anila De Paz MD [address] [place] [id number] [facility] [address] [place], [place] [id number] Referral ID Status Reason Start Date Expiration Date V isits Requested Visits Authorized [id number] Closed Auto-Generate d Referral 06/18/2024 06/18/2025 1 1 [facility] for referral (narrative)* Outpatient Procedure (Routine) - Authorized Specialty Diagnoses / Procedures Referred By Contac t Referred To Contact [facility] [place] Diagnoses Carotid bruit, unspecified laterality Procedures US CAROTID ARTERIES [facility] DUPLEX SCAN EXTRACRANIAL [place] [address] [place] [address] [facility] [place] [phone] Referral ID Status Reason Start Date Expiration Date Visits Requested Visits Authorized [id number] Authorized Auto-Generat ed Referral 4 08/03/2025 1 1 * Outpatient Procedure (Routine) - New Request Specialty Diagnoses / Procedures Referred By Contac t Referred To Contact [facility] [place] Diagnoses H/O acute myocardial infarction Procedures ECG COMPLETE ECG ROUTINE ECG W/LEAST 12 LDS W/I&[place] [address] [place] [address] [facility] [place] [phone] Referral ID Status Reason Start Date Expiration Date Visits Requested Visits Authorized [id number] New Request Auto-Generat ed Referral 4 08/03/2025 1 1 [facility] for referral (narrative)* Outpatient Procedure (Routine) - New Request Specialty Diagnoses / Procedures Referred By Contac t Referred To Contact [facility] Diagnoses Neuropathy Procedures EMG(NEURO/NI) NERVE CONDUCTION STUDIES 9-10 STUDIES Denice Jacobs PA-C [address] [place] [address] [place] [address] Referral ID Status Reason Start Date Expiration Date Visits Requested Visits Authorized [id number] New Request Auto-Generat ed Referral 08/06/2025 1 1 [facility] for referral (narrative)* Outpatient Procedure (Routine) - New Request Specialty Diagnoses / Procedures Referred By Vivienne hunt Referred To Contact [facility] [place] Diagnoses Dilated pancreatic duct Procedures EGD - THERAPEUTIC, EUS, OR TUBE INTERVENTIONS EDG US EXAM SURGICAL ALTER STOM DUODENUM/JEJUNUM Susan Srinivasan MD [address] [facility]. [address] [place] [address] [place] [address] Referral ID Status Reason Start Date Expiration Date Visits Requested Visits Authorized [id number] New Request Auto-Generat ed Referral 09/08/2024 09/08/2025 1 1 [facility] for referral (narrative)* Outpatient Procedure (Routine) - Closed Specialty Diagnoses / Procedures Referred By Vivienne hunt Referred To Contact [facility] [place] Diagnoses Choledocholithiasis Procedures ERCP ERCP REMOVE CALCULI/DEBRIS BILIARY/PANCREAS DUCT Alisa Haile MD [address] [place] [id number] [place] [address] Referral ID Status Reason Start Date Expiration Date V isits Requested Visits Authorized [id number] Closed Auto-Generate d Referral 09/13/2024 09/13/2025 1 1 [facility] for referral (narrative)* Outpatient Procedure (Routine) - Closed Specialty Diagnoses / Procedures [facility] Referred To Contact [facility] [place] Diagnoses Choledocholithiasis Procedures ERCP ERCP REMOVE CALCULI/DEBRIS BILIARY/PANCREAS DUCT Alisa Haile MD [address] [place] [id number] [place] [phone] Referral ID Status Reason Start Date Expiration Date V isits Requested Visits Authorized [id number] Closed Auto-Generate d Referral 09/13/2024 09/13/2025 1 1 * Outpatient Procedure (Routine) - Closed Specialty Diagnoses / Procedures [facility] Referred To [facility] Diagnoses Dilated pancreatic duct Procedures EGD - THERAPEUTIC, EUS, OR TUBE INTERVENTIONS EDG US EXAM SURGICAL ALTER STOM DUODENUM/JEJUNUM Susan Srinivasan MD [address] [facility]. [address] [place] [phone] [place] [phone] Referral ID Status Reason Start Date Expiration Date V isits Requested Visits Authorized [id number] Closed Auto-Generate d Referral 09/08/2024 09/08/2025 1 1 [facility] for referral (narrative)No reason for referral information [facility] Narrative* Outpatient Procedure (Routine) - Closed Specialty Diagnoses / Procedures Referred By [facility] Referred To Contact [facility] [place] Diagnoses Hiatal hernia Procedures EGD DIAGNOSTIC ESOPHAGOGASTRODUODENOSC OPY TRANSORAL DIAGNOSTIC Anila De Paz MD [address] [place] [address] [place] [phone] Referral ID Status Reason Start Date Expiration Date V isits Requested Visits Authorized [id number] Closed Auto-Generate d Referral 06/18/2024 06/18/2025 1 1 [facility] for visit Narrative* Outpatient Procedure (Routine) - Closed Specialty Diagnoses / Procedures Referred By Vivienne hunt Referred To Contact [facility] Diagnoses Dilated pancreatic duct Procedures EGD - THERAPEUTIC, EUS, OR TUBE INTERVENTIONS EDG US EXAM SURGICAL ALTER STOM DUODENUM/JEJUNUM Susan Srinivasan MD [address] [place] [address] [facility] [address] [place] [address] Referral ID Status Reason Start Date Expiration Date V isits Requested Visits Authorized [id number] Closed Auto-Generate d Referral 09/08/2024 09/08/2025 1 1 [facility] for visit Narrative* MRI/CT (Routine) - Closed Specialty Diagnoses / Procedures Referred By Vivienne hunt Referred To Contact CT IMAG[facility] Diagnoses Nausea Procedures CT ABD/PEL W IVCON CT ABD & PELVIS W/CONTRAST Anila De Paz MD [address] [place] [address] Phone: tel: fax: [facility] [place] [phone] Referral ID Status Reason Start Date Expiration Date V isits Requested Visits Authorized [id number] Closed Auto-Generate d Referral 11/02/2024 12/02/2025 1 1 [facility] Chief Complaint and Reason for Visit Chief [...] Lightheadedness Overactive bladder Atherosclerotic heart disease of [place] coronary artery without angina pectoris Essential hypertension [...] Lightheadedness Overactive bladder Atherosclerotic heart disease of [place] coronary artery without angina pectoris Essential hypertension Presence of stent in coronary artery Hyperlipidemia Bronchiectasis Hypoxemia Abdominal wall hernia Essential hypertension Restless leg syndrome Seizure disorder Acute bronchitis Chief Complaint Adema in both legs, close to ankles 2 W FU SOB/SELF REF. 3 M FU 3 M FU NON-PRODUCTIVE COUGH Amb Documentation ABD WALL PAIN head injury xray [facility] ER FU CONGITIVE COMMUNICATION. RX HERE Reason for Visit Intermittent constip ation Leg edema, left Varicose veins of both legs with edema Debility Lightheadedness Overactive bladder Atherosclerotic heart disease of [place] coronary artery without angina pectoris Essential hypertension Presence of stent in coronary artery Hyperlipidemia Bronchiectasis Hypoxemia Abdominal wall hernia Essential hypertension Restless leg syndrome Seizure disorder Acute bronchitis Right inguinal hernia Fall (on)(from) incline, subsequent encounter Visit for suture removal Chief Complaint SOB/SELF REF. 3 M FU 3 M FU NON-PRODUCTIVE COUGH Amb Documentation ABD WALL PAIN head injury xray [facility] ER FU CONGITIVE COMMUNICATION. RX HERE Primary osteoarthritis, left shoulder CONGITIVE COMMUNICATION. RX HERE Reason for Visit Atherosclerotic hear t disease of [place] coronary artery without angina pectoris Essential hypertension Presence of stent in coronary artery Hyperlipidemia Bronchiectasis Hypoxemia Abdominal wall hernia Essential hypertension Restless leg syndrome Seizure disorder Acute bronchitis Right inguinal hernia Fall (on)(from) incline, subsequent encounter Visit for suture removal Chief Complaint SOB/SELF REF. 3 M FU 3 M FU NON-PRODUCTIVE COUGH Amb Documentation ABD WALL PAIN head injury xray [facility] ER FU CONGITIVE COMMUNICATION. RX HERE Primary osteoarthritis, left shoulder CONGITIVE COMMUNICATION. RX HERE POST FALL LAST NIGHT/LEFT ARM PAIN/HIT HEAD EORDERS Reason for Visit Atherosclerotic hear t disease of [place] coronary artery without angina pectoris Essential hypertension [...] WALL PAIN head injury xray [facility] ER FU CONGITIVE COMMUNICATION. RX HERE [...] contusion Scalp contusion Atherosclerotic heart disease of [place] coronary artery without angina pectoris Debility Essential [...] contusion Scalp contusion Atherosclerotic heart disease of [place] coronary artery without angina pectoris Debility Essential [...] Restless leg syndrome Atherosclerotic heart disease of [place] coronary artery without angina pectoris Essential hypertension [...] Restless leg syndrome Atherosclerotic heart disease of [place] coronary artery without angina pectoris Essential hypertension Lightheadedness Hyperlipidemia Mass of upper inner quadrant of left breast Contusion of thoracic wall Lumbar contusion Atherosclerotic heart disease of [place] coronary artery without angina pectoris Cancer Essential [...] for Visit Atherosclerotic hear t disease of [place] coronary artery without angina pectoris Essential hypertension Lightheadedness Hyperlipidemia Mass of upper inner quadrant of left breast Contusion of thoracic wall Lumbar contusion Atherosclerotic heart disease of [place] coronary artery without angina pectoris Cancer Essential [...] sting Bronchiectasis Hypoxemia Atherosclerotic heart disease of [place] coronary artery without angina pectoris ALEXANDER (dyspnea on exertion) Hyperlipidemia Chief Complaint LUMP IN MIDDLE OF CH EST NUMEROUS BEE STINGS/TOP OF THIGH/RIGHT LEG RASH 3 M FU E ORDERS CONGITIVE COMM,BALANCE,WEAKNESS RX HERE 4 M FU Flu Shot DYSPNEA VISION LOSS Reason for Visit Sternal deformity Bee sting Bronchiectasis Hypoxemia Atherosclerotic heart disease of [place] coronary artery without angina pectoris ALEXANDER (dyspnea on exertion) Hyperlipidemia Chief Complaint NUMEROUS BEE STINGS/ TOP OF THIGH/RIGHT LEG RASH 3 M FU E ORDERS CONGITIVE COMM,BALANCE,WEAKNESS RX HERE 4 M FU Flu Shot DYSPNEA VISION LOSS LEFT BREAST LUMP FOLLOW UP Reason for Visit Bee sting Bronchiectasis Hypoxemia Atherosclerotic heart disease of [place] coronary artery without angina pectoris ALEXANDER (dyspnea on exertion) Hyperlipidemia Chief Complaint LEFT BREAST LUMP FOL LOW UP 6 M FU BACK BRACE RX HERE left hip issues 6 M FU EORDERS Reason for Visit Atherosclerotic hear t disease of [place] coronary artery without angina pectoris Debility Essential [...] for Visit Atherosclerotic hear t disease of [place] coronary artery without angina pectoris Debility Essential hypertension Falls frequently Hiatal hernia Hyperlipidemia Restless leg syndrome Right inguinal hernia Vascular dementia Difficulty swallowing Hiatal hernia Mass of upper inner quadrant of left breast Sternal deformity Osteoporosis Bronchiectasis Hypoxemia Atherosclerotic heart disease of [place] coronary artery without angina pectoris Dizziness Hyperlipidemia Chief Complaint BACK BRACE RX HERE left hip issues 6 M FU EORDERS 6 M FU DIZZINESS Amb Documentation Reason for Visit Hiatal hernia Mass of upper inner quadrant of left breast Sternal deformity Osteoporosis Bronchiectasis Hypoxemia Atherosclerotic heart disease of [place] coronary artery without angina pectoris Dizziness Hyperlipidemia Chief Complaint Admit Date RIGHT KNEE July 05, 2024 1:18pm Surgery Clearance July 07, 2024 11:42am OSTEOARTHRITIS OF RIGHT KNEE. RX HERE No vember 2023 1:30pm RIGHT KNEE July 12, 2024 3:46pm RIGHT KNEE July 19, 2024 3 :39pm Room 2 July 19, 2024 4 :00pm fall September 18, 2024 8 :36am F/U [facility] Discharge September 1:03pm SCREENING October 18, 2024 1:23 pm 6 M FU October 22, 2024 2:11 pm Reason for Visit Admit Date Osteoarthritis of right knee July 052023 1:18pm Atherosclerotic heart diseas e of [place] coronary artery without angina pectoris July 07, [...] fall September 18, 2024 8 :36am F/U [facility] Discharge September 1:03pm SCREENING October 18, 2024 [...] fall September 18, 2024 8 :36am F/U [facility] Discharge September 1:03pm SCREENING October 18, 2024 [...] 2024 2:11pm Chief Complaint Admit Date F/U [facility] Discharge September 1:03pm SCREENING October 18, 2024 [...] Date/ Time Name of Medical Power of Animal Nutrition Teacher Delroy PURVIS hu sband September 01, 2021 6:35pm Name of Medical Power of Animal Nutrition Teacher Delroy dinero September 02, 2021 8:44pm Name of Medical Power of Animal Nutrition Teacher dl Douglas September 05, 2021 12:39pm Living Will Yes October 05 6:26pm Power of Animal Nutrition Teacher Yes October 05, 2021 6:26pm Advance Directive Response Recorded Date/ Time Living Will Yes October 05 6:26pm Power of Animal Nutrition Teacher Yes October 05, 2021 6:26pm Advance Directive Response Recorded Date/ Time Name of Medical Power of Animal Nutrition Teacher ? February 15, 2022 9:51am Living Will Yes February 15, 2022 9 :51am Power of Animal Nutrition Teacher Yes February 15, 2022 9:51am Advance Directive Response Recorded Date/ Time Name of Medical Power of Animal Nutrition Teacher ? February 15, 2022 9:51am Name of Medical Power of Animal Nutrition Teacher delroy jones e- March 15, 2022 7:44pm Living Will Yes March 15, 2022 7:44pm Power of Animal Nutrition Teacher Yes March 15 7:44pm Advance Directive Response Recorded Date/ Time Name of Medical Power of Animal Nutrition Teacher delroy jonese- March 15, 2022 6:44pm Name of Medical Power of Animal Nutrition Teacher delroy -- July 13, 2022 12:23am Living Will Yes July 13, 2 022 12:23am Power of Animal Nutrition Teacher Yes July 13, 2022 12:23am Advance Directive Response Recorded Date/ Time Name of Medical Power of Animal Nutrition Teacher delroy --shireenban d July 13, 2022 12:23am Living Will Yes July 13, 2 022 12:23am Power of Animal Nutrition Teacher Yes July 13, 2022 12:23am Advance Directive Response Recorded Date/ Time Name of Medical Power of Animal Nutrition Teacher delroy --shireenban d July 13, 2022 12:23am Name of Medical Power of Animal Nutrition Teacher HUSBND October 16, 2022 6:43pm Living Will Yes October 16, 2022 6:43pm Power of Animal Nutrition Teacher Yes October 16 6:43pm Advance Directive Response Recorded Date/ Time Name of Medical Power of Animal Nutrition Teacher HUSBND October 16, 2022 7:43pm Living Will Yes October 16, 2022 7:43pm Power of Animal Nutrition Teacher Yes October 16 7:43pm Advance Directive Response Recorded Date/ Time Living Will Yes January 20, 2023 8 :53am Power of Animal Nutrition Teacher Yes January 20, 2023 8:53am Name of Medical Power of Animal Nutrition Teacher HUSBND October 16, 2022 7:43pm Advance Directive Response Recorded Date/ Time Living Will Yes January 20, 2023 8 :53am Power of Animal Nutrition Teacher Yes January 20, 2023 8:53am Advance Directive Response Recorded Date/ Time Living Will Yes March 24, 2023 11:37am Power of Animal Nutrition Teacher Yes March 24 11:37am Advance Directive Response Recorded Date/ Time Living Will Yes May 15, 2023 2:11pm Power of Animal Nutrition Teacher Yes April 2:11pm Advance Directive Response Recorded Date/ Time Living Will Yes May 15, 2023 1:11pm Power of Animal Nutrition Teacher Yes April 1:11pm Documents on File Type Date Recorded Patient Direct Marketing Representative Expl anation Advance Directive(s) 08/06/2024 2:46 PM Documents on File Type Date Recorded Patient Direct Marketing Representative Expl anation Advance Directive(s) 08/06/2024 2:46 PM Advance Directive Response Recorded Date/ Time Living Will Yes March 16, 2024 9:39am Power of Animal Nutrition Teacher Yes March 16 9:39am Living Will Yes June 07 8:50am Power of Animal Nutrition Teacher Yes June 07, 2024 8:50am Living Will Yes September 18 10:27am Power of Animal Nutrition Teacher Yes September 18, 2024 10:27am Name of Medical Power of Animal Nutrition Teacher September 18, 2024 10:27am Advance Directive Response Recorded Date/ Time Living Will Yes March 16, 2024 9:39am Do you have a Healthcare Power of Animal Nutrition Teacher? Yes March 16, 2024 9:39am Living Will Yes September 18 10:27am Do you have a Healthcare Power of Animal Nutrition Teacher? Yes September 18, 2024 10:27am Name of Medical Power of Animal Nutrition Teacher September 18, 2024 10:27am Advance Directive Response Recorded Date/ Time Living Will Yes March 16, 2024 9:39am Do you have a Healthcare Power of Animal Nutrition Teacher? Yes March 16, 2024 9:39am Do you have a Healthcare Power of Animal Nutrition Teacher? Yes February 03, 2025 4:07am Reason for Referral Specialty Diagnoses / Procedures Referred By Contsada t Referred To Contact [facility] Diagnoses Dementia without behavioral disturbance, unspecified dementia type (HCC) Cognitive communication deficit Procedures CONSULT TO SPEECH THERAPY OFFICE/OUTPATIENT [facility] 60-74 MINUTES Laisha Lizarraga, ROSMERY.[employer] [address] [place] [address] [facility] [address] [place] [address] Referral ID Status Reason Start Date Expiration Date Visits Requested Visits Authorized [id number] Authorized Auto-Generat ed Referral 04/11/2022 04/11/2023 99 99 Specialty Diagnoses / Procedures Referred By Contac t Referred To Contact MR IMAGING Diagnoses Dementia without behavioral disturbance (HCC) Procedures MRI 3D POST PROCESSING 3D RENDERING W/INTERP&POSTPROC DIFF WORK STATION Laisha Lizarraga, ROSMERY.ADMINISTRATIVE JOB TITLES [address] [phone] Mr Imaging Referral ID Status Reason Start Date Expiration Date Visits Requested Visits Authorized [id number] Authorized Auto-Generat ed Referral 11/13/2022 12/13/2023 1 1 Specialty Diagnoses / Procedures Referred By Contac t Referred To Contact MR IMAGING Diagnoses Dementia without behavioral disturbance (HCC) Procedures MRI BRAIN W QUANT WO IVCON MRI BRAIN BRAIN STEM W/O CONTRAST MATERIAL Laisha Lizarraga, MEAL ROOM HAND.ADMINISTRATIVE JOB TITLES [address] [phone] Mr Imaging Referral ID Status Reason Start Date Expiration Date Visits Requested Visits Authorized [id number] Authorized Auto-Generat ed Referral 11/13/2022 12/13/2023 1 1 Specialty Diagnoses / Procedures Referred By Contac t Referred To Contact MR IMAGING Diagnoses Dementia without behavioral disturbance (HCC) Procedures MRI 3D POST PROCESSING 3D RENDERING W/INTERP&POSTPROC DIFF WORK STATION Laisha Lizarraga, MEAL ROOM HAND.ADMINISTRATIVE JOB TITLES [address] [phone] Mr Imaging [place] [address] Referral ID Status Reason Start Date Expiration Date V isits Requested Visits Authorized [id number] Closed Auto-Generate d Referral 11/13/2022 12/13/2023 1 1 Specialty Diagnoses / Procedures Referred By Contac t Referred To Contact MR IMAGING Diagnoses Dementia without behavioral disturbance (HCC) Procedures MRI BRAIN W QUANT WO IVCON MRI BRAIN BRAIN STEM W/O CONTRAST MATERIAL Laisha Lizarraga, MEAL ROOM HAND.ADMINISTRATIVE JOB TITLES [address] [phone] Mr Imaging [id number] Referral ID Status Reason Start Date Expiration Date V isits Requested Visits Authorized [id number] Closed Auto-Generate d Referral 11/13/2022 12/13/2023 1 1 Specialty Diagnoses / Procedures Referred By Contac t Referred To Contact General Surgery Diagnoses Hiatal hernia Gastroesophageal reflux disease, unspecified whether esophagitis present Procedures CONSULT TO GENERAL SURGERY OFFICE/OUTPATIENT NEW HIGH MDM 60 MINUTES Susan Squires MD [address] [place] [address] Laisha Sheppard MD [address] [phone] Referral ID Status Reason Start Date Expiration Date Visits Requested Visits Authorized [id number] Authorized PCP Requested Referral 05/17/2024 05/17/2025 1 1 Specialty Diagnoses / Procedures Referred By Contac t Referred To Contact CT IMAGING Diagnoses Hiatal hernia Procedures CT CHEST W IVCON DIAGNOSTIC COMPUTED TOMOGRAPHY THORAX W/CONTRAST Anila De Paz MD [address] [place], [place] [id number] Ct Imaging [facility]95 Referral ID Status Reason Start Date Expiration Date Visits Requested Visits Authorized [id number] New Request Auto-Generat ed Referral 06/18/2024 07/18/2025 1 1 Specialty Diagnoses / Procedures Referred By Contac t Referred To Contact CT IMAGING Diagnoses Hiatal hernia Procedures CT ABD/PEL W IVCON CT ABD & PELVIS W/CONTRAST Anila De Paz MD [address] [place], [place] [id number] Ct Imaging [place] [address] Referral ID Status Reason Start Date Expiration Date Visits Requested Visits Authorized [id number] New Request Auto-Generat ed Referral 06/18/2024 07/18/2025 1 1 Specialty Diagnoses / Procedures Referred By Contac t Referred To Contact [facility] Diagnoses Hiatal hernia Procedures EGD DIAGNOSTIC ESOPHAGOGASTRODUODENOSC OPY TRANSORAL DIAGNOSTIC Anila De Paz MD [address] [place], [place] [phone] [facility] [address] [place] [id number] Referral ID Status Reason Start Date Expiration Date Visits Requested Visits Authorized [id number] Authorized Auto-Generat ed Referral 06/18/2024 06/18/2025 1 1 Referral ID Status Reason Start Date Expiration Date V isits Requested Visits Authorized [id number] Closed Auto-Generate d Referral 06/18/2024 07/18/2025 1 1 Specialty Diagnoses / Procedures Referred By Contac t Referred To Contact Diagnoses 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, psychotic disturbance, mood disturbance, or anxiety (HCC) Procedures PROVIDER ORDERED FOLLOW UP OFFICE/OUTPATIENT [facility] 60 MINUTES Laisha Lizarraga, ROSMERY.ADMINISTRATIVE JOB TITLES [address] [phone] Referral ID Status Reason Start Date Expiration Date Visits Requested Visits Authorized [id number] Authorized PCP Requested Referral 07/01/2025 1 1 Specialty Diagnoses / Procedures Referred By Contac t Referred To Contact Neurology Diagnoses Paresthesia of both feet Procedures CONSULT TO NEUROLOGY OFFICE/OUTPATIENT [facility] 60 MINUTES Laisha Lizarraga, ROSMERY.ADMINISTRATIVE JOB TITLES [address] [phone] Referral ID Status Reason Start Date Expiration Date Visits Requested Visits Authorized [id number] Authorized PCP Requested Referral 07/01/2025 1 1 Specialty Diagnoses / Procedures Referred By Contac t Referred To Contact MR IMAGING Diagnoses Abnormal results of liver function studies Procedures MRI 3D POST PROCESSING 3D RENDERING W/INTERP&POSTPROC DIFF WORK STATION Anila De Paz MD [address] [place], [place] [address] Mr Imaging [place] [address] Referral ID Status Reason Start Date Expiration Date Visits Requested Visits Authorized [id number] Authorized Auto-Generat ed Referral 09/03/2024 10/03/2025 1 1 Specialty Diagnoses / Procedures Referred By Contac t Referred To Contact MR IMAGING Diagnoses Abnormal results of liver function studies Procedures MRI PANC/MAGNOLIA WO/W IVCON MRI ABDOMEN W/O & W/CONTRAST MATERIAL Anila De Paz MD [address] [place], [place] [address] [place] [address] Referral ID Status Reason Start Date Expiration Date Visits Requested Visits Authorized [id number] Authorized Auto-Generat ed Referral 09/03/2024 10/03/2025 1 1 Specialty Diagnoses / Procedures Referred By Contac t Referred To Contact Diagnoses Hiatal hernia Epigastric pain Nausea and vomiting, unspecified vomiting type Pre-op exam Procedures REFER TO [facility] PREOPERATIVE OPTIMIZATION OFFICE/OUTPATIENT [facility] 60 MINUTES Anila De Paz MD [address] [place] [id number] Referral ID Status Reason Start Date Expiration Date Visits Requested Visits Authorized [id number] Authorized PCP Requested Referral 09/03/2024 09/03/2025 1 1 Referral ID Status Reason Start Date Expiration Date V isits Requested Visits Authorized [id number] Closed Auto-Generate d Referral 09/03/2024 10/03/2025 1 1 Referral ID Status Reason Start Date Expiration Date V isits Requested Visits Authorized [id number] Closed Auto-Generate d Referral 09/03/2024 10/03/2025 1 1 Summary Purpose Additional Source Comments Source Comments (unrecognize d section and content) In the event this informatio n is protected by the Federal Confidentiality of Alcohol and Drug Abuse Patient Records regulations: The Federal rules restrict any use of the information to criminally investigate or prosecute any alcohol or drug abuse patient.[facility]In the event this information is protected by the Federal Confidentiality of Alcohol and Drug Abuse Patient Records regulations: The Federal rules restrict any use of the information to criminally investigate or prosecute any alcohol or drug abuse patient.[facility] AndersonIn the event this information is protected by the Federal Confidentiality of Alcohol and Drug Abuse Patient Records regulations: The Federal rules restrict any use of the information to criminally investigate or prosecute any alcohol or drug abuse patient.[facility] AndersonIn the event this information is protected by the Federal Confidentiality of Alcohol and Drug Abuse Patient Records regulations: The Federal rules restrict any use of the information to criminally investigate or prosecute any alcohol or drug abuse patient.[facility] AndersonIn the event this information is protected by the Federal Confidentiality of Alcohol and Drug Abuse Patient Records regulations: The Federal rules restrict any use of the information to criminally investigate or prosecute any alcohol or drug abuse patient.[facility] AndersonIn the event this information is protected by the Federal Confidentiality of Alcohol and Drug Abuse Patient Records regulations: The Federal rules restrict any use of the information to criminally investigate or prosecute any alcohol or drug abuse patient.[facility] AndersonIn the event this information is protected by the Federal Confidentiality of Alcohol and Drug Abuse Patient Records regulations: The Federal rules restrict any use of the information to criminally investigate or prosecute any alcohol or drug abuse patient.[facility] AndersonIn the event this information is protected by the Federal Confidentiality of Alcohol and Drug Abuse Patient Records regulations: The Federal rules restrict any use of the information to criminally investigate or prosecute any alcohol or drug abuse patient.[facility] AndersonIn the event this information is protected by the Federal Confidentiality of Alcohol and Drug Abuse Patient Records regulations: The Federal rules restrict any use of the information to criminally investigate or prosecute any alcohol or drug abuse patient.[facility] AndersonIn the event this information is protected by the Federal Confidentiality of Alcohol and Drug Abuse Patient Records regulations: The Federal rules restrict any use of the information to criminally investigate or prosecute any alcohol or drug abuse patient.[facility] AndersonIn the event this information is protected by the Federal Confidentiality of Alcohol and Drug Abuse Patient Records regulations: The Federal rules restrict any use of the information to criminally investigate or prosecute any alcohol or drug abuse patient.[facility] AndersonIn the event this information is protected by the Federal Confidentiality of Alcohol and Drug Abuse Patient Records regulations: The Federal rules restrict any use of the information to criminally investigate or prosecute any alcohol or drug abuse patient.[facility] AndersonIn the event this information is protected by the Federal Confidentiality of Alcohol and Drug Abuse Patient Records regulations: The Federal rules restrict any use of the information to criminally investigate or prosecute any alcohol or drug abuse patient.[facility] AndersonIn the event this information is protected by the Federal Confidentiality of Alcohol and Drug Abuse Patient Records regulations: The Federal rules restrict any use of the information to criminally investigate or prosecute any alcohol or drug abuse patient.[facility] AndersonIn the event this information is protected by the Federal Confidentiality of Alcohol and Drug Abuse Patient Records regulations: The Federal rules restrict any use of the information to criminally investigate or prosecute any alcohol or drug abuse patient.[facility] AndersonIn the event this information is protected by the Federal Confidentiality of Alcohol and Drug Abuse Patient Records regulations: The Federal rules restrict any use of the information to criminally investigate or prosecute any alcohol or drug abuse patient.[facility] AndersonIn the event this information is protected by the Federal Confidentiality of Alcohol and Drug Abuse Patient Records regulations: The Federal rules restrict any use of the information to criminally investigate or prosecute any alcohol or drug abuse patient.[facility] AndersonIn the event this information is protected by the Federal Confidentiality of Alcohol and Drug Abuse Patient Records regulations: The Federal rules restrict any use of the information to criminally investigate or prosecute any alcohol or drug abuse patient.[facility] AndersonIn the event this information is protected by the Federal Confidentiality of Alcohol and Drug Abuse Patient Records regulations: The Federal rules restrict any use of the information to criminally investigate or prosecute any alcohol or drug abuse patient.[facility] AndersonIn the event this information is protected by the Federal Confidentiality of Alcohol and Drug Abuse Patient Records regulations: The Federal rules restrict any use of the information to criminally investigate or prosecute any alcohol or drug abuse patient.[facility] AndersonIn the event this information is protected by the Federal Confidentiality of Alcohol and Drug Abuse Patient Records regulations: The Federal rules restrict any use of the information to criminally investigate or prosecute any alcohol or drug abuse patient.[facility] AndersonIn the event this information is protected by the Federal Confidentiality of Alcohol and Drug Abuse Patient Records regulations: The Federal rules restrict any use of the information to criminally investigate or prosecute any alcohol or drug abuse patient.[facility] AndersonIn the event this information is protected by the Federal Confidentiality of Alcohol and Drug Abuse Patient Records regulations: The Federal rules restrict any use of the information to criminally investigate or prosecute any alcohol or drug abuse patient.[facility] AndersonIn the event this information is protected by the Federal Confidentiality of Alcohol and Drug Abuse Patient Records regulations: The Federal rules restrict any use of the information to criminally investigate or prosecute any alcohol or drug abuse patient.[facility] AndersonIn the event this information is protected by the Federal Confidentiality of Alcohol and Drug Abuse Patient Records regulations: The Federal rules restrict any use of the information to criminally investigate or prosecute any alcohol or drug abuse patient.[facility] AndersonIn the event this information is protected by the Federal Confidentiality of Alcohol and Drug Abuse Patient Records regulations: The Federal rules restrict any use of the information to criminally investigate or prosecute any alcohol or drug abuse patient.[facility] AndersonIn the event this information is protected by the Federal Confidentiality of Alcohol and Drug Abuse Patient Records regulations: The Federal rules restrict any use of the information to criminally investigate or prosecute any alcohol or drug abuse patient.[facility] AndersonIn the event this information is protected by the Federal Confidentiality of Alcohol and Drug Abuse Patient Records regulations: The Federal rules restrict any use of the information to criminally investigate or prosecute any alcohol or drug abuse patient.[facility] AndersonIn the event this information is protected by the Federal Confidentiality of Alcohol and Drug Abuse Patient Records regulations: The Federal rules restrict any use of the information to criminally investigate or prosecute any alcohol or drug abuse patient.[facility] AndersonIn the event this information is protected by the Federal Confidentiality of Alcohol and Drug Abuse Patient Records regulations: The Federal rules restrict any use of the information to criminally investigate or prosecute any alcohol or drug abuse patient.[facility] AndersonIn the event this information is protected by the Federal Confidentiality of Alcohol and Drug Abuse Patient Records regulations: The Federal rules restrict any use of the information to criminally investigate or prosecute any alcohol or drug abuse patient.[facility] AndersonIn the event this information is protected by the Federal Confidentiality of Alcohol and Drug Abuse Patient Records regulations: The Federal rules restrict any use of the information to criminally investigate or prosecute any alcohol or drug abuse patient.[facility] AndersonIn the event this information is protected by the Federal Confidentiality of Alcohol and Drug Abuse Patient Records regulations: The Federal rules restrict any use of the information to criminally investigate or prosecute any alcohol or drug abuse patient.[facility] AndersonIn the event this information is protected by the Federal Confidentiality of Alcohol and Drug Abuse Patient Records regulations: The Federal rules restrict any use of the information to criminally investigate or prosecute any alcohol or drug abuse patient.[facility] AndersonIn the event this information is protected by the Federal Confidentiality of Alcohol and Drug Abuse Patient Records regulations: The Federal rules restrict any use of the information to criminally investigate or prosecute any alcohol or drug abuse patient.[facility] AndersonIn the event this information is protected by the Federal Confidentiality of Alcohol and Drug Abuse Patient Records regulations: The Federal rules restrict any use of the information to criminally investigate or prosecute any alcohol or drug abuse patient.[facility] AndersonIn the event this information is protected by the Federal Confidentiality of Alcohol and Drug Abuse Patient Records regulations: The Federal rules restrict any use of the information to criminally investigate or prosecute any alcohol or drug abuse patient.[facility] AndersonIn the event this information is protected by the Federal Confidentiality of Alcohol and Drug Abuse Patient Records regulations: The Federal rules restrict any use of the information to criminally investigate or prosecute any alcohol or drug abuse patient.[facility] AndersonIn the event this information is protected by the Federal Confidentiality of Alcohol and Drug Abuse Patient Records regulations: The Federal rules restrict any use of the information to criminally investigate or prosecute any alcohol or drug abuse patient.[facility] AndersonIn the event this information is protected by the Federal Confidentiality of Alcohol and Drug Abuse Patient Records regulations: The Federal rules restrict any use of the information to criminally investigate or prosecute any alcohol or drug abuse patient.[facility] AndersonIn the event this information is protected by the Federal Confidentiality of Alcohol and Drug Abuse Patient Records regulations: The Federal rules restrict any use of the information to criminally investigate or prosecute any alcohol or drug abuse patient.[facility] AndersonIn the event this information is protected by the Federal Confidentiality of Alcohol and Drug Abuse Patient Records regulations: The Federal rules restrict any use of the information to criminally investigate or prosecute any alcohol or drug abuse patient.[facility] AndersonIn the event this information is protected by the Federal Confidentiality of Alcohol and Drug Abuse Patient Records regulations: The Federal rules restrict any use of the information to criminally investigate or prosecute any alcohol or drug abuse patient.[facility] AndersonIn the event this information is protected by the Federal Confidentiality of Alcohol and Drug Abuse Patient Records regulations: The Federal rules restrict any use of the information to criminally investigate or prosecute any alcohol or drug abuse patient.[facility] AndersonIn the event this information is protected by the Federal Confidentiality of Alcohol and Drug Abuse Patient Records regulations: The Federal rules restrict any use of the information to criminally investigate or prosecute any alcohol or drug abuse patient.[facility] AndersonIn the event this information is protected by the Federal Confidentiality of Alcohol and Drug Abuse Patient Records regulations: The Federal rules restrict any use of the information to criminally investigate or prosecute any alcohol or drug abuse patient.[facility] AndersonIn the event this information is protected by the Federal Confidentiality of Alcohol and Drug Abuse Patient Records regulations: The Federal rules restrict any use of the information to criminally investigate or prosecute any alcohol or drug abuse patient.[facility] AndersonIn the event this information is protected by the Federal Confidentiality of Alcohol and Drug Abuse Patient Records regulations: The Federal rules restrict any use of the information to criminally investigate or prosecute any alcohol or drug abuse patient.[facility] AndersonIn the event this information is protected by the Federal Confidentiality of Alcohol and Drug Abuse Patient Records regulations: The Federal rules restrict any use of the information to criminally investigate or prosecute any alcohol or drug abuse patient.[facility] AndersonIn the event this information is protected by the Federal Confidentiality of Alcohol and Drug Abuse Patient Records regulations: The Federal rules restrict any use of the information to criminally investigate or prosecute any alcohol or drug abuse patient.[facility] AndersonIn the event this information is protected by the Federal Confidentiality of Alcohol and Drug Abuse Patient Records regulations: The Federal rules restrict any use of the information to criminally investigate or prosecute any alcohol or drug abuse patient.[facility] AndersonIn the event this information is protected by the Federal Confidentiality of Alcohol and Drug Abuse Patient Records regulations: The Federal rules restrict any use of the information to criminally investigate or prosecute any alcohol or drug abuse patient.[facility] AndersonIn the event this information is protected by the Federal Confidentiality of Alcohol and Drug Abuse Patient Records regulations: The Federal rules restrict any use of the information to criminally investigate or prosecute any alcohol or drug abuse patient.[facility] AndersonIn the event this information is protected by the Federal Confidentiality of Alcohol and Drug Abuse Patient Records regulations: The Federal rules restrict any use of the information to criminally investigate or prosecute any alcohol or drug abuse patient.[facility] AndersonIn the event this information is protected by the Federal Confidentiality of Alcohol and Drug Abuse Patient Records regulations: The Federal rules restrict any use of the information to criminally investigate or prosecute any alcohol or drug abuse patient.[facility] AndersonIn the event this information is protected by the Federal Confidentiality of Alcohol and Drug Abuse Patient Records regulations: The Federal rules restrict any use of the information to criminally investigate or prosecute any alcohol or drug abuse patient.[facility] AndersonIn the event this information is protected by the Federal Confidentiality of Alcohol and Drug Abuse Patient Records regulations: The Federal rules restrict any use of the information to criminally investigate or prosecute any alcohol or drug abuse patient.[facility] AndersonIn the event this information is protected by the Federal Confidentiality of Alcohol and Drug Abuse Patient Records regulations: The Federal rules restrict any use of the information to criminally investigate or prosecute any alcohol or drug abuse patient.[facility] AndersonIn the event this information is protected by the Federal Confidentiality of Alcohol and Drug Abuse Patient Records regulations: The Federal rules restrict any use of the information to criminally investigate or prosecute any alcohol or drug abuse patient.[facility] AndersonIn the event this information is protected by the Federal Confidentiality of Alcohol and Drug Abuse Patient Records regulations: The Federal rules restrict any use of the information to criminally investigate or prosecute any alcohol or drug abuse patient.[facility] AndersonIn the event this information is protected by the Federal Confidentiality of Alcohol and Drug Abuse Patient Records regulations: The Federal rules restrict any use of the information to criminally investigate or prosecute any alcohol or drug abuse patient.[facility] AndersonIn the event this information is protected by the Federal Confidentiality of Alcohol and Drug Abuse Patient Records regulations: The Federal rules restrict any use of the information to criminally investigate or prosecute any alcohol or drug abuse patient.[facility] AndersonIn the event this information is protected by the Federal Confidentiality of Alcohol and Drug Abuse Patient Records regulations: The Federal rules restrict any use of the information to criminally investigate or prosecute any alcohol or drug abuse patient.[facility] AndersonIn the event this information is protected by the Federal Confidentiality of Alcohol and Drug Abuse Patient Records regulations: The Federal rules restrict any use of the information to criminally investigate or prosecute any alcohol or drug abuse patient.[facility] AndersonIn the event this information is protected by the Federal Confidentiality of Alcohol and Drug Abuse Patient Records regulations: The Federal rules restrict any use of the information to criminally investigate or prosecute any alcohol or drug abuse patient.[facility] AndersonIn the event this information is protected by the Federal Confidentiality of Alcohol and Drug Abuse Patient Records regulations: The Federal rules restrict any use of the information to criminally investigate or prosecute any alcohol or drug abuse patient.[facility] AndersonIn the event this information is protected by the Federal Confidentiality of Alcohol and Drug Abuse Patient Records regulations: The Federal rules restrict any use of the information to criminally investigate or prosecute any alcohol or drug abuse patient.[facility] AndersonIn the event this information is protected by the Federal Confidentiality of Alcohol and Drug Abuse Patient Records regulations: The Federal rules restrict any use of the information to criminally investigate or prosecute any alcohol or drug abuse patient.[facility] AndersonIn the event this information is protected by the Federal Confidentiality of Alcohol and Drug Abuse Patient Records regulations: The Federal rules restrict any use of the information to criminally investigate or prosecute any alcohol or drug abuse patient.[facility] AndersonIn the event this information is protected by the Federal Confidentiality of Alcohol and Drug Abuse Patient Records regulations: The Federal rules restrict any use of the information to criminally investigate or prosecute any alcohol or drug abuse patient.[facility] AndersonIn the event this information is protected by the Federal Confidentiality of Alcohol and Drug Abuse Patient Records regulations: The Federal rules restrict any use of the information to criminally investigate or prosecute any alcohol or drug abuse patient.[facility] AndersonIn the event this information is protected by the Federal Confidentiality of Alcohol and Drug Abuse Patient Records regulations: The Federal rules restrict any use of the information to criminally investigate or prosecute any alcohol or drug abuse patient.[facility] AndersonIn the event this information is protected by the Federal Confidentiality of Alcohol and Drug Abuse Patient Records regulations: The Federal rules restrict any use of the information to criminally investigate or prosecute any alcohol or drug abuse patient.[facility] AndersonIn the event this information is protected by the Federal Confidentiality of Alcohol and Drug Abuse Patient Records regulations: The Federal rules restrict any use of the information to criminally investigate or prosecute any alcohol or drug abuse patient.[facility] AndersonIn the event this information is protected by the Federal Confidentiality of Alcohol and Drug Abuse Patient Records regulations: The Federal rules restrict any use of the information to criminally investigate or prosecute any alcohol or drug abuse patient.[facility] AndersonIn the event this information is protected by the Federal Confidentiality of Alcohol and Drug Abuse Patient Records regulations: The Federal rules restrict any use of the information to criminally investigate or prosecute any alcohol or drug abuse patient.[facility] AndersonIn the event this information is protected by the Federal Confidentiality of Alcohol and Drug Abuse Patient Records regulations: The Federal rules restrict any use of the information to criminally investigate or prosecute any alcohol or drug abuse patient.[facility] AndersonIn the event this information is protected by the Federal Confidentiality of Alcohol and Drug Abuse Patient Records regulations: The Federal rules restrict any use of the information to criminally investigate or prosecute any alcohol or drug abuse patient.[facility] AndersonIn the event this information is protected by the Federal Confidentiality of Alcohol and Drug Abuse Patient Records regulations: The Federal rules restrict any use of the information to criminally investigate or prosecute any alcohol or drug abuse patient.[facility] AndersonIn the event this information is protected by the Federal Confidentiality of Alcohol and Drug Abuse Patient Records regulations: The Federal rules restrict any use of the information to criminally investigate or prosecute any alcohol or drug abuse patient.[facility] AndersonIn the event this information is protected by the Federal Confidentiality of Alcohol and Drug Abuse Patient Records regulations: The Federal rules restrict any use of the information to criminally investigate or prosecute any alcohol or drug abuse patient.[facility] AndersonIn the event this information is protected by the Federal Confidentiality of Alcohol and Drug Abuse Patient Records regulations: The Federal rules restrict any use of the information to criminally investigate or prosecute any alcohol or drug abuse patient.[facility] AndersonIn the event this information is protected by the Federal Confidentiality of Alcohol and Drug Abuse Patient Records regulations: The Federal rules restrict any use of the information to criminally investigate or prosecute any alcohol or drug abuse patient.[facility] Reason for Visit (unrecogniz ed section and content) Reason Comments OT Discharge Specialty Diagnoses / Procedures Referred By Vivienne hunt Referred To Contact [facility] Diagnoses Fine motor impairment Procedures CONSULT TO SUPERVISOR FINISHING OCCUPATIONAL THERAPY EVAL HIGH COMPLEX 60 MINS Laisha Lizarraga, MEAL ROOM HAND.ADMINISTRATIVE JOB TITLES [address] [email or web address] [place] [phone] Phone: tel: fax: [facility] [address] [place], [place] [id number] Referral ID Status Reason Start Date Expiration Date Visits Requested Visits Authorized [id number] Authorized PCP Requested Referral Auto-Generate d Referral [...] BRAIN STEM W/O CONTRAST MATERIAL Laisha Lizarraga, MEAL ROOM HAND.ADMINISTRATIVE JOB TITLES [address] [email or web address] [place] [id number] Mr Imaging [facility]95 Referral ID Status Reason Start Date Expiration Date V isits Requested Visits Authorized [id number] Closed Auto-Generate d Referral 11/13/2022 12/13/2023 1 1 Reason Comments Consult Diaphragmatic Hernia Reason Onset Date Comments Refill Request 06/10/2024 Reason Comments Tube Mounter - Other Chart prep Reason Comments Consult Specialty Diagnoses / Procedures Referred By Contac t Referred To Contact General Surgery Diagnoses Hiatal hernia Gastroesophageal reflux disease, unspecified whether esophagitis present Procedures CONSULT TO GENERAL SURGERY OFFICE/OUTPATIENT [facility] 60 MINUTES Susan Squires MD [address] [place] [address] Laisha Sheppard MD [address] [place] [address] Referral ID Status Reason Start Date Expiration Date V isits Requested Visits Authorized [id number] Closed PCP Requested Referral 05/17/2024 05/17/2025 [address] Specialty Diagnoses / Procedures Referred By Vivienne t Referred To Contact CT IMAGING Diagnoses Hiatal hernia Procedures CT ABD/PEL W IVCON CT ABD & PELVIS W/CONTRAST Anila De Paz MD [address] [place] [address] Ct Imaging [place] [address] Referral ID Status Reason Start Date Expiration Date V isits Requested Visits Authorized [id number] Closed Auto-Generate d Referral 06/18/2024 07/18/2025 1 [...] Pre-op evaluation Procedures CONSULT TO CARDIOLOGY OFFICE/OUTPATIENT [facility] 60 MINUTES Anila De Paz MD [address] [place], [place] [id number] Referral ID Status Reason Start Date Expiration Date V isits Requested Visits Authorized [id number] Closed PCP Requested Referral 06/18/2024 06/18/2025 1 1 Reason Comments Consult Paresthesia of both feet/ illegal writing Specialty Diagnoses / Procedures Referred By Contac t Referred To Contact Neurology Diagnoses Paresthesia of both feet Procedures CONSULT TO NEUROLOGY OFFICE/OUTPATIENT [facility] 60 MINUTES Laisha Lizarraga, MEAL ROOM HAND.ADMINISTRATIVE JOB TITLES [address] [place] [address] Referral ID Status Reason Start Date Expiration Date V isits Requested Visits Authorized [id number] Closed PCP Requested Referral 07/31/2024 07/01/2025 1 [...] MATERIAL Anila De Paz MD [address] [place] [address] Mr Imaging [place] [address] Referral ID Status Reason Start Date Expiration Date V isits Requested Visits Authorized [id number] Closed Auto-Generate d Referral 09/03/2024 10/03/2025 1 1 Reason Comments Patient Update Reason Comments Tube Mounter - Other Update on EUS o rders Reason Comments Preparations For Surgery PACC Reason Onset Date Comments EMG 09/10/2024 Specialty Diagnoses / Procedures Referred By Contac t Referred To Contact [facility] Diagnoses Neuropathy Procedures EMG(NEURO/NI) NERVE CONDUCTION STUDIES 9-10 STUDIES Denice Jacobs PA-C [address] [place] [address] Neurological [facility] [place] [address] Referral ID Status Reason Start Date Expiration Date V isits Requested Visits Authorized [id number] Closed Auto-Generate d Referral 08/06/2024 08/06/2025 1 [...] Paz, Anila A, MD [address] [place] [address] Phone: tel: fax: [place] [address] Referral ID Status Reason Start Date Expiration Date V isits Requested Visits Authorized [id number] Closed Auto-Generate d Referral 11/02/2024 12/02/2025 1 1 Reason Onset Date Comments Refill Request 12/16/2024 Reason Comments Abrasion to right forearm x1 day Reason Comments Established Patient Reason Comments Follow Up Care Teams (unrecognized sec tion and content) Sorter Packer Relationship Specialty Start Date End Date Bryant Melendrez MD [address] [place], [place] [id number] PCP - General Internal Medicine 11/20/20 Sorter Packer Relationship Specialty Start Date End Date Bryant Melendrez MD [address] [place], [place] [id number] PCP - General Internal Medicine 11/20/20 Sorter Packer Relationship Specialty Start Date End Date Chema Perry MD [address] [place], [place] [id number] PCP - General Internal Medicine 04/11/22 Team Status: Active Member Role Status Dates [facility] Dr[facility] Chema Perry MD Primary Care Provider Active Team Status: Inactive Member Role Status Dates Dr. Chema Perry MD Primary Care Provider, Attendi ng Provider Active Team Status: Inactive Member Role Status Dates Dr. Chema Perry MD Primary Care Provider, Referri ng Provider Active Sandra Vincent DANCE ENTERTAINER, DANCE ENTERTAINER-C Attending Provider Active Team Status: Inactive Member Role Status Dates Dr. hCema Perry MD Primary Care Provider, Referri ng [...] Active Cal Keith MD Emergency Provider Active Sorter Packer Relationship Specialty Start Date End Date Chema ePrry MD [address] [place] [address] PCP - General Internal Medicine 04/11/22 Team [...] Dr. Isma Bustamante DO Emergency Provider Active Sorter Packer Relationship Specialty Start Date End Date Chema Perry MD [address] [place] [address] PCP - General Internal Medicine 04/11/22 Team [...] MD Attending Provider, Referring P rochelle Active Sorter Packer Relationship Specialty Start Date End Date Chema Perry MD [address] [facility] [place] [address] PCP - General Internal Medicine 04/11/22 Team Status: Inactive Member Role Status Dates Dr. Chema Perry MD Primary Care Provider Active Dr. Sarbjit Kraus MD Attending Provider, Referr ing Provider Active Sorter Packer Relationship Specialty Start Date End Date Chema Perry MD [address] [place] [address] PCP - General Internal Medicine 04/11/22 Stephanie Brush [address] [place] [address] Referring Ophthalmology 07/23/23 Team Status: Active Member Role Status Dates Dr. Chema Perry MD Primary Care Provider Active Dr. Porfirio Bloom MD Attending Provider, Referring Provider Active Sorter Packer Relationship Specialty Start Date End Date Chema Perry MD [address] [place] [address] PCP - General Internal Medicine 04/11/22 Stephanie Brush [address] [place] [place] [address] Referring Ophthalmology 07/23/23 Sorter Packer Relationship Specialty Start Date End Date Chema Perry MD [address] [place] [address] PCP - General Internal Medicine 04/11/22 Stephanie Brush [address] [place] [address] Referring Ophthalmology 07/23/23 Team Status: Inactive Member Role Status Dates Dr. Chema Perry MD Primary Care Provider, Referri ng Provider Active Tamiko Ku DANCE ENTERTAINER, DANCE ENTERTAINER-C Attending Provider Active Team Status: Inactive Member [...] MD Primary Care Provider Active Tamiko Ku DANCE ENTERTAINER, DANCE ENTERTAINER-C Attending Provider Active Team Status: Inactive Member Role Status Dates Dr. Chema Perry MD Primary Care Provider Active Tamiko Ku DANCE ENTERTAINER, DANCE ENTERTAINER-C Attending Provider, Referring P rochelle Active Sorter Packer Relationship Specialty Start Date End Date Chema Perry MD [address] [place] [address] PCP - General Internal Medicine 04/11/22 Stephnaie Brush [address] [place] [address] Referring Ophthalmology 07/23/23 Sorter Packer Relationship Specialty Start Date End Date Chema Perry MD [address] [place] [address] PCP - General Internal Medicine 04/11/22 Stephanie Brush [address] [place] [address] Referring Ophthalmology 07/23/23 Sorter Packer Relationship Specialty Start Date End Date Chema Perry MD [address] [place] [address] PCP - General Internal Medicine 04/11/22 Stephanie Brush [address] [place] [address] Referring Ophthalmology 07/23/23 Porfirio Carreon [address] [place] [phone] Referring Orthopedics 02/10/24 Sorter Packer Relationship Specialty Start Date End Date Chema Perry MD [address] [place] [address] PCP - General Internal Medicine 04/11/22 Stephanie Brush [address] [facility] [place], [place] [address] Referring Ophthalmology 07/23/23 Porfirio Carreon [address] [place] [phone] Referring Orthopedics 02/10/24 Sorter Packer Relationship Specialty Start Date End Date Chema Perry MD [address] [place], [place] [address] PCP - General Internal Medicine 04/11/22 Stephanie Brush [address] [facility] [place], [place] [address] Referring Ophthalmology 07/23/23 Porfirio Carreon [address] [place] [phone] Referring Orthopedics 02/10/24 Sorter Packer Relationship Specialty Start Date End Date Chema Perry MD [address] [place] [address] PCP - General Internal Medicine 04/11/22 Stephanie Brush MD [address] [place] [address] Referring Ophthalmology 07/23/23 Porfirio Carreon [address] [place] [phone] Referring Orthopedics 02/10/24 Sorter Packer Relationship Specialty Start Date End Date Chema Perry MD [address] [place] [address] PCP - General Internal Medicine 04/11/22 Sorter Packer Relationship Specialty Start Date End Date Chema Perry MD [address] [place] [address] PCP - General Internal Medicine 04/11/22 Stephanie Brush MD [address] [place] [address] Referring Ophthalmology 07/23/23 Porfirio Carreon [address] [place] [phone] Referring Orthopedics 02/10/24 Sorter Packer Relationship Specialty Start Date End Date Chema Perry MD [address] [place] [address] PCP - General Internal Medicine 04/11/22 Stephanie Brush MD [address] [facility] [place] [address] Referring Ophthalmology 07/23/23 Porfirio Carreon [address] [place] [phone] Referring Orthopedics 02/10/24 Sorter Packer Relationship Specialty Start Date End Date Chema Perry MD [address] [place] [address] PCP - General Internal Medicine 04/11/22 Stephanie Brush MD [address] [place] [address] Referring Ophthalmology 07/23/23 Porfirio Carreon [address] [place] [phone] Referring Orthopedics 02/10/24 Sorter Packer Relationship Specialty Start Date End Date Chema Perry MD [address] [place] [address] PCP - General Internal Medicine 04/11/22 Stephanie Brush MD [address] [facility] [place], [place] [address] Referring Ophthalmology 07/23/23 Porfirio Carreon [address] [place] [phone] Referring Orthopedics 02/10/24 Sorter Packer Relationship Specialty Start Date End Date Chema Perry MD [address] [place] [address] PCP - General Internal Medicine 04/11/22 Stephanie Brush MD [address] [place] [address] Referring Ophthalmology 07/23/23 Porfirio Carreon [address] [place] [phone] Referring Orthopedics 02/10/24 Sorter Packer Relationship Specialty Start Date End Date Chema Perry MD [address] [place] [address] PCP - General Internal Medicine 04/11/22 Stephanie Brush MD [address] [facility] [place], [place] [address] Referring Ophthalmology 07/23/23 Porfirio Carreon [address] [place] [phone] Referring Orthopedics 02/10/24 Sorter Packer Relationship Specialty Start Date End Date Chema Perry MD [address] [place], [place] [address] PCP - General Internal Medicine 04/11/22 Stephanie Brush MD [address] [place] [address] Referring Ophthalmology 07/23/23 Porfirio Carreon [address] [facility] [place] [phone] Referring Orthopedics 02/10/24 Sorter Packer Relationship Specialty Start Date End Date Chema Perry MD [address] [place] [address] PCP - General Internal Medicine 04/11/22 Stephanie Brush MD [address] [facility] [place] [address] Referring Ophthalmology 07/23/23 Porfirio Carreon [address] [place] [phone] Referring Orthopedics 02/10/24 Sorter Packer Relationship Specialty Start Date End Date Chema Perry MD [address] [facility] [place] [address] PCP - General Internal Medicine 04/11/22 Stephanie Brush MD [address] [facility] [place] [address]641 Referring Ophthalmology 07/23/23 Porfirio Carreon [address] [place] [phone] Referring Orthopedics 02/10/24 Sorter Packer Relationship Specialty Start Date End Date Chema Perry MD [address] [place], [place] [address] PCP - General Internal Medicine 04/11/22 Stephanie Brush MD [address] [facility] [place] [address] Referring Ophthalmology 07/23/23 Porfirio Carreon [address] [place] [phone] Referring Orthopedics 02/10/24 Sorter Packer Relationship Specialty Start Date End Date Chema Perry MD [address] [place] [address] PCP - General Internal Medicine 04/11/22 Stephanie Brush MD [address] [place] [address] Referring Ophthalmology 07/23/23 Porfirio Carreon [address] [place] [phone] Referring Orthopedics 02/10/24 Sorter Packer Relationship Specialty Start Date End Date Chema Perry MD [address] [place] [address] PCP - General Internal Medicine 04/11/22 Stephanie Brush MD [address] [place] [address] Referring Ophthalmology 07/23/23 Porfirio Carreon [address] [place] [phone] Referring Orthopedics 02/10/24 Sorter Packer Relationship Specialty Start Date End Date Chema Perry MD [address] [place] [address] PCP - General Internal Medicine 04/11/22 Stephanie Brush MD [address] [place] [address] Referring Ophthalmology 07/23/23 Porfirio Carreon [address] [place] [phone] Referring Orthopedics 02/10/24 Sorter Packer Relationship Specialty Start Date End Date Chema Perry MD [address] [place] [address] PCP - General Internal Medicine 04/11/22 Stephanie Brush MD [address] [place] [address] Referring Ophthalmology 07/23/23 Porfirio Carreon [address] [facility] [place] [phone] Referring Orthopedics 02/10/24 [place] [address] [place] [address] [facility] 08/03/24 Sorter Packer Relationship Specialty Start Date End Date Chema Perry MD [address] [place] [address] PCP - General Internal Medicine 04/11/22 Stephanie Brush MD [address] [facility] [place] [address] Referring Ophthalmology 07/23/23 Porfirio Carreon [address] [facility] [place] [phone] Referring Orthopedics 02/10/24 [place] [address] [place] [address] [facility] 08/03/24 Sorter Packer Relationship Specialty Start Date End Date Chema Perry MD [address] [place], [place] 480[address] PCP - General Internal Medicine 04/11/22 Stephanie Brush MD [address] [place], [place] [address] Referring Ophthalmology 07/23/23 Porfirio Carreon [address] [place] [phone] Referring Orthopedics 02/10/24 [place] [address] [place] [address] [facility] 08/03/24 Sorter Packer Relationship Specialty Start Date End Date Chema Perry MD [address] [place] [address] PCP - General Internal Medicine 04/11/22 Stephanie Brush MD [address] [place], [place] [address] Referring Ophthalmology 07/23/23 Porfirio Carreon [address] [place] [phone] Referring Orthopedics 02/10/24 [place] [address] [place] [address] [facility] 08/03/24 Sorter Packer Relationship Specialty Start Date End Date Chema Perry MD [address] [place] [address] PCP - General Internal Medicine 04/11/22 Stephanie Brush MD [address] [place] [address] Referring Ophthalmology 07/23/23 Porfirio Carreon [address] [facility] [place] [phone] Referring Orthopedics 02/10/24 [place] [address] [place] [address] [facility] 08/03/24 Sorter Packer Relationship Specialty Start Date End Date Chema Perry MD [address] [place] [address] PCP - General Internal Medicine 04/11/22 Stephanie Brush MD [address] [place] [address] Referring Ophthalmology 07/23/23 Porfirio Carreon [address] [phone] Referring Orthopedics 02/10/24 [place] [address] [place] [address] [facility] 08/03/24 Sorter Packer Relationship Specialty Start Date End Date Chema Perry MD [address] [place] [address] PCP - General Internal Medicine 04/11/22 Stephanie Brush MD [address] [place], [place] 217471 Referring Ophthalmology 07/23/23 Porfirio Carreon [address] [place] [phone] Referring Orthopedics 02/10/24 [place] [address] [place] [address] [facility] 08/03/24 Sorter Packer Relationship Specialty Start Date End Date Chema Perry MD [address] [place], [place] 550011 PCP - General Internal Medicine 04/11/22 Stephanie Brush MD [address] [place], [place] 685611 Referring Ophthalmology 07/23/23 Porfirio Carreon [address] [place] [phone] Referring Orthopedics 02/10/24 [place] [address] [place] [address] [facility] 08/03/24 Sorter Packer Relationship Specialty Start Date End Date Chema Perry MD [address] [place] [address] PCP - General Internal Medicine 04/11/22 Stephanie Brush MD [address] [place], [place] 666301 Referring Ophthalmology 07/23/23 Porfirio Carreon [address] [place] [phone] Referring Orthopedics 02/10/24 [place] [address] [place] [address] [facility] 08/03/24 Sorter Packer Relationship Specialty Start Date End Date Chema Perry MD [address] [place], [place] 079271 PCP - General Internal Medicine 04/11/22 Stephanie Brush MD [address] [place], [place] 530081 Referring Ophthalmology 07/23/23 Porfirio Carreon [address] [phone] Referring Orthopedics 02/10/24 [place] [address] [place] [address] [facility] 08/03/24 Sorter Packer Relationship Specialty Start Date End Date Chema Perry MD [address] [place] [address] PCP - General Internal Medicine 04/11/22 Stephanie Brush MD [address] [place], [place] 698481 Referring Ophthalmology 07/23/23 Porfirio Carreon [address] [place] [phone] Referring Orthopedics 02/10/24 [place] [address] [place] [address] [facility] 08/03/24 Sorter Packer Relationship Specialty Start Date End Date Chema Perry MD [address] [place], [place] 593471 PCP - General Internal Medicine 04/11/22 Stephanie Brush MD [address] [place], [place] 739021 Referring Ophthalmology 07/23/23 Porfirio Carreon [address] [place] [phone] Referring Orthopedics 02/10/24 [place] [address] [place] [address] [facility] 08/03/24 Sorter Packer Relationship Specialty Start Date End Date Chema Perry MD [address] [place] [address] PCP - General Internal Medicine 04/11/22 Stephanie Brush MD [address] [place], [place] 83708691 Referring Ophthalmology 07/23/23 Porfirio Carreon [address] [place] [phone] Referring Orthopedics 02/10/24 [place] [address] [place] [address] [facility] 08/03/24 Sorter Packer Relationship Specialty Start Date End Date Chema Perry MD [address] [place] [address] PCP - General Internal Medicine 04/11/22 Stephanie Brush MD [address] [place], [place] 899121 Referring Ophthalmology 07/23/23 Porfirio Carreon [address] [phone] Referring Orthopedics 02/10/24 [place] [address] [place] [address] [facility] 08/03/24 Sorter Packer Relationship Specialty Start Date End Date Chema Perry MD [address] [place] [address] PCP - General Internal Medicine 04/11/22 Stephanie Brush MD [address] [place] [address] Referring Ophthalmology 07/23/23 Porfirio Carreon [address] [phone] Referring Orthopedics 02/10/24 [place] [address] [place], [place] 4584736 [facility] 08/03/24 Sorter Packer Relationship Specialty Start Date End Date Chema Perry MD [address] [place] [address] PCP - General Internal Medicine 04/11/22 Stephanie Brush MD [address] [place], [place] 095191 Referring Ophthalmology 07/23/23 Porfirio Carreon [address] [phone] Referring Orthopedics 02/10/24 [place] [address] [place] [address] [facility] 08/03/24 Sorter Packer Relationship Specialty Start Date End Date Chema Perry MD [address] [place], [place] 663691 PCP - General Internal Medicine 04/11/22 Stephanie Brush MD [address] [place] [address] Referring Ophthalmology 07/23/23 Porfirio Carreon [address] [facility] [place] [address] Referring Orthopedics 02/10/24 [place] [address] [place] [address] [facility] 08/03/24 Sorter Packer Relationship Specialty Start Date End Date Chema Perry MD [address] [facility], [place] 237821 PCP - General Internal Medicine 04/11/22 Stephanie Brush MD [address] [place] [address] Referring Ophthalmology 07/23/23 Porfirio Carreon [address] [place] [phone] Referring Orthopedics 02/10/24 [place] [address] [place], [place] 5641536 [facility] 08/03/24 Sorter Packer Relationship Specialty Start Date End Date Chema Perry MD [address] [place] [address] PCP - General Internal Medicine 04/11/22 Stephanie Brush MD [address] [place] [address] Referring Ophthalmology 07/23/23 Porfirio Carreon [address] [facility] [place] [phone] Referring Orthopedics 02/10/24 [place] [address] [place] [address] [facility] 08/03/24 Sorter Packer Relationship Specialty Start Date End Date Chema Perry MD [address] [place], [place] 656331 PCP - General Internal Medicine 04/11/22 Stephanie Brush MD [address] [facility] [place] [address] Referring Ophthalmology 07/23/23 Porfirio Carreon [address] [facility] [place] [phone] Referring Orthopedics 02/10/24 [place] [address] [place] [address] [facility] 08/03/24 Sorter Packer Relationship Specialty Start Date End Date Chema Perry MD [address] [place] [address] PCP - General Internal Medicine 04/11/22 Stephanie Brush MD [address] [facility] [place] Referring Ophthalmology 07/23/23 Porfirio Carreon [address] [phone] Referring Orthopedics 02/10/24 [place] [address] [place] [address] [facility] 08/03/24 Sorter Packer Relationship Specialty Start Date End Date Chema Perry MD [address] [place], [place] 788741 PCP - General Internal Medicine 04/11/22 Stephanie Brush MD [address] [place], [place] 251391 Referring Ophthalmology 07/23/23 Porfirio Carreon [address] [place] [phone] Referring Orthopedics 02/10/24 [place] [address] [place] [address] [facility] 08/03/24 Sorter Packer Relationship Specialty Start Date End Date Chema Perry MD [address] [place], [place] 743421 PCP - General Internal Medicine 04/11/22 10/17/24 Chema Perry MD [address]85 [facility] [address] [place], [place] 4401[address] PCP - General Internal Medicine 10/18/24 Stephanie Brush MD [address] [place], [place] 339491 Referring Ophthalmology 07/23/23 Porfirio Carreon DO [address] [place] [phone] Referring Orthopedics 02/10/24 [place] [address] [place], [place] 3151536 [facility] 08/03/24 Sorter Packer Relationship Specialty Start Date End Date Chema Perry MD 1685 [facility] [address] [place] [address] PCP - General Internal Medicine 10/18/24 Stephanie Brush MD [address] [place] [address] Referring Ophthalmology 07/23/23 Porfirio Carreon DO [address] [facility] 2 [place] [phone] Referring Orthopedics 02/10/24 [place] [address] [place], [place] 6662536 [facility] 08/03/24 Sorter Packer Relationship Specialty Start Date End Date Chema Perry MD [address] [address] PCP - General Internal Medicine 10/18/24 Stephanie Brush MD [address] [place], [place] 564181 Referring Ophthalmology 07/23/23 Porfirio Carreon DO [address] [facility] 2 [place] [phone] Referring Orthopedics 02/10/24 [place] [address] [place] [address] [facility] 08/03/24 Sorter Packer Relationship Specialty Start Date End Date Chema Perry MD [address], [place] 7456[address] PCP - General Internal Medicine 10/18/24 Stephanie Brush MD [address] [place] [address] Referring Ophthalmology 07/23/23 Porfirio Carreon DO [address] [facility] [place] [phone] Referring Orthopedics 02/10/24 [place] [address] [place] [address] [facility] 08/03/24 Sorter Packer Relationship Specialty Start Date End Date Chema Perry MD [address] [address] PCP - General Internal Medicine 10/18/24 Stephanie Brush MD [address] [place] [address] Referring Ophthalmology 07/23/23 Porfirio Carreon DO [address] [facility] [place] [phone] Referring Orthopedics 02/10/24 [place] [address] [place] [address] [facility] 08/03/24 Sorter Packer Relationship Specialty Start Date End Date Chema Perry MD [address] [address] PCP - General Internal Medicine 10/18/24 Stephanie Brush MD [address] [place], [place] 812471 Referring Ophthalmology 07/23/23 Porfirio Carreon DO [address] [place] [phone] Referring Orthopedics 02/10/24 [place] [address] [place], [place] 6734436 [facility] 08/03/24 Sorter Packer Relationship Specialty Start Date End Date Chema Perry MD [address] 475691 PCP - General Internal Medicine 10/18/24 Stephanie Brush MD [address] [place], [place] 978591 Referring Ophthalmology 07/23/23 Porfirio Carreon DO [address] [facility] [place] [phone] Referring Orthopedics 02/10/24 [place] [address] [place] [address] [facility] 08/03/24 Sorter Packer Relationship Specialty Start Date End Date Chema Perry MD [address] [address] PCP - General Internal Medicine 10/18/24 Stephanie Brush MD [address] [place], [place] 402101 Referring Ophthalmology 07/23/23 Porfirio Carreon DO [address] [place] [phone] Referring Orthopedics 02/10/24 [place] [address] [place] [address] [facility] 08/03/24 Sorter Packer Relationship Specialty Start Date End Date Chema Perry MD [address] [address] PCP - General Internal Medicine 10/18/24 Stephanie Brush MD [address] [place], [place] 720941 Referring Ophthalmology 07/23/23 Porfirio Carreon DO [address] [facility] [address] [place] [phone] Referring Orthopedics 02/10/24 [place] [address] [place] [address] [facility] 08/03/24 Sorter Packer Relationship Specialty Start Date End Date Chema Perry MD [address] [address] PCP - General Internal Medicine 10/18/24 Stephanie Brush MD [address] [place] [address] Referring Ophthalmology 07/23/23 Porfirio Carreon DO [address] [facility] 2 [place] [phone] Referring Orthopedics 02/10/24 [place] [address] [place] [address] [facility] 08/03/24 Sorter Packer Relationship Specialty Start Date End Date Chema Perry MD [address] [address] PCP - General Internal Medicine 10/18/24 Stephanie Brush MD [address] [place] [address] Referring Ophthalmology 07/23/23 Porfirio Carreon DO [address] [facility] 2 [place] [phone] Referring Orthopedics 02/10/24 [place] [address] [place] [address] [facility] 08/03/24 Sorter Packer Relationship Specialty Start Date End Date Chema Perry MD [address] [address] PCP - General Internal Medicine 10/18/24 Stephanie Brush MD [address] [place] [address] Referring Ophthalmology 07/23/23 Porfirio Carreon DO [address] [facility] [place] [phone] Referring Orthopedics 02/10/24 [place] [address] [place] [address] [facility] 08/03/24 Sorter Packer Relationship Specialty Start Date End Date Chema Perry MD [address]85 [facility] [address] [place] [address] PCP - General Internal Medicine 10/18/24 Stephanie Brush MD [address] [place] [address] Referring Ophthalmology 07/23/23 Porfirio Carreon DO [address] [facility] [place] [phone] Referring Orthopedics 02/10/24 [place] [address] [place] [address] [facility] 08/03/24 Team Status: Active Member Role [...] 2024 End: July 12, 2024 Dr. Chema ePrry MD Referring Provider Active Start: July 12, [...] 2024 End: October 22, 2024 Sandra Vincent DANCE ENTERTAINER, DANCE ENTERTAINER-C Attending Provider Active Start: October 22, 2024 [...] November 09, 2024 End: November 09, 2024 Sorter Packer Relationship Specialty Start Date End Date Chema Perry MD 168 [facility] [address] [place], [place] 359421 PCP - General Internal Medicine 10/18/24 Stephanie Brush MD [address] [place], [place] 657961 Referring Ophthalmology 07/23/23 Porfirio Carreon DO [address] [facility] 2 [place] [phone] Referring Orthopedics 02/10/24 [place] [address] [place] [address] [facility] 08/03/24 Sorter Packer Relationship Specialty Start Date End Date Chema Perry MD 1684 [facility] [address] [place] [address] PCP - General Internal Medicine 10/18/24 Stephanie Brush MD [address] [place], [place] 920221 Referring Ophthalmology 07/23/23 Porfirio Carreon DO [address] [place] [phone] Referring Orthopedics 02/10/24 [place] [address] [place], [place] 1115936 [facility] 08/03/24 Sorter Packer Relationship Specialty Start Date End Date Chema Perry MD [address] [address] PCP - General Internal Medicine 10/18/24 Stephanie Brush MD [address] [place], [place] 838881 Referring Ophthalmology 07/23/23 Porfirio Carreon DO [address] [place] [phone] Referring Orthopedics 02/10/24 [place] [address] [place] [address] [facility] 08/03/24 Sorter Packer Relationship Specialty Start Date End Date Chema Perry MD [address]85 [facility] [address] [place] [address] PCP - General Internal Medicine 10/18/24 Stephanie Brush MD [address] [place] [address] Referring Ophthalmology 07/23/23 Porfirio Carreon DO [address] [place] [phone] Referring Orthopedics 02/10/24 [place] [address] [place] [address] [facility] 08/03/24 Team Status: Active Member Role [...] section and content) DATE CREATED AUTHOR 11/01/2024 [facility] DATE CREATED AUTHOR AUTHOR'S ORGANIZ ATION 12/01/2024 [facility] DATE CREATED AUTHOR AUTHOR'S ORGANIZ ATION 01/30/2025 [facility] DATE CREATED AUTHOR AUTHOR'S ORGANIZ ATION 02/04/2025 [facility] FOR RECORDS PERTAINING TO PATIENTS WHO ARE [...] BE BASED ON THE PRIMARY CLINICAL RECORDS. [facility]. provides no warranty or guarantee of the accuracy or completeness of information in this document.
[2025-02-06 11:22] VITALS: BMI 25.4
--- OUTSIDE RECORDS SUMMARY | 2025-02-06 11:39 | XMS RPT_ITS | CCD ---
Author Organization [facility] Care Team Providers Care Entry Level Finance Name Role Phone Parvin COHEN, Bryant Sandoval Primary Care Provider [phone] Richard, Dr. Arun Muller Primary Care Provider Richard, Dr. Arun Muller Referring Provider Melisa CRIMINAL INTELLIGENCE ANALYST, CRIMINAL INTELLIGENCE ANALYST-C Sandra Attending Provider [phone] Dr. Kinza Laughlin Emergency Provider Dr. Luh [...] Richard, Dr. Arun Muller Referring Provider Melisa CRIMINAL INTELLIGENCE ANALYST, CRIMINAL INTELLIGENCE ANALYST-C Sandra Attending Provider Richard, Dr. Arun Muller Primary Care Provider Richard, Dr. Arun Muller Referring Provider Dr. Malachi Caal Attending Provider Melisa CRIMINAL INTELLIGENCE ANALYST, CRIMINAL INTELLIGENCE ANALYST-C Sandra Referring Provider [phone] Chema Perry MD Primary Care Provider [phone] [...] Provider Unavailable Dr. Chema Perry Attending Provider 1([facility]) Dr. Rolando Griffith Attending Provider 1([facility])[phone] Sarbjit Kraus Attending Provider Dr. Chema Perry Primary Care Provider Dr. Chema Perry Primary Care Provider Dr. Chema Perry Attending Provider [phone] Lashonda VALENCIA, ERIK Vaughan Attending Provider Dr. Chema Perry Primary Care Provider Dr. Chema Perry Referring Provider 1([facility]) Chema Perry MD Primary Care Provider [phone] Dr. Chema Perry Primary Care Provider Dr. Chema Perry Referring Provider 1([facility])347 Lashonda VALENCIA PA Jd [...] Provider Dr. Chema Perry Attending Provider Melisa CRIMINAL INTELLIGENCE ANALYST, CRIMINAL INTELLIGENCE ANALYST-C Sandra Attending Provider Dr. Chema Perry Primary Care Provider Dr. Chema Perry Attending Provider Dr. Chema Perry Referring Provider ERIK Alonso Attending Provider ERIK Jamison Attending Provider Dr. Rolando Griffith Attending Provider ERIK Alonso Attending Provider Roseann VALENCIA, PA Jerri Vaughan Referring Provider Dr. Chema Perry Primary Care Provider Dr. Chema Perry Referring Provider Lashonda VALENCIA PA Jd Vaughan Attending Provider Melisa BROWN, CRIMINAL INTELLIGENCE ANALYST-C Sandra Attending Provider Roseann VALENCIA, PA Jerri [...] Dr. Malachi Caal Attending Provider Kings BROWN, CRIMINAL INTELLIGENCE ANALYST-C Tamiko Attending Provider Dr. Chema Perry Primary Care Provider Dr. Chema Perry Attending Provider Dr. Vincent Smart Attending Provider Chema Perry MD Primary Care Provider [phone] Porfirio Carreon Unavailable Stephanie Brush MD Unavailable Sourav Marcial MD Unavailable Chema Perry MD Primary Care Provider Porfirio Carreon DO Unavailable [phone] Chace COHEN, Chema Vaughan Primary Care Provider [...] Bear Referring Provider LAISHA LIZARRAGA Referring Unavailable CEHMA PERRY M Primary Care Unavailable ZGOJAIMESKHakeem, LAISHA [...] M Primary Care Unavailable [facility] Attending Unavailable CHACE, CHEMA M Primary Care Unavailable DUNG, QARAB Referring Unavailable CHACE, CHEMA M Primary Care Unavailable [facility] Referring Unavailable DUNG, QARAB Attending Unavailable CHACE, CHEMA M Primary Care Unavailable [facility] Referring Unavailable CHACE, CHEMA M Primary Care Unavailable [facility] Referring Unavailable [facility] Admitting Unavailable [facility] Attending Unavailable CHACE, CHEMA M Primary Care Unavailable [facility] Referring Unavailable CHACE, CHEMA M Primary [...] M Primary Care Unavailable [facility] Attending Unavailable SUSAN SQUIRES Referring Unavailable [...] COHEN, Dr. Bear Primary Care Provider [phone] Dr. Isma Bustamante DO Emergency Provider Chace, [...] Care Unavailable Chace, Chema Attending Unavailable Nacho, Hillrose Attending Unavailable Chace, Chema Attending Unavailable Chace, Chema Primary Care Unavailable Chace, Chema Referring Unavailable Melisa CRIMINAL INTELLIGENCE ANALYST, Sandra Attending Unavailable Chace, Chema Primary Care [...] Attending Unavailable Chace, Chema Referring Unavailable Nacho, Hillrose Attending Unavailable Chace, Chema Primary Care Unavailable [...] Attending Unavailable Chace, Chema Primary Care Unavailable Dr. Kana Whitt DO Emergency Provider Damien Burleson MD Attending Provider Dr. Vincent Camp DO Admit Provider [phone] Vincent Camp DO Attending Provider Allergies Allergy Classification Reported Allergen(s) Allergy Type Date of Onset Reaction(s) Facility Acetaminophen / oxyCODONE (1 source) Acetaminophen / oxyCODONE Drug Allergy 08-09-20 Mental Status Change [facility] Anti-Epileptic Agents (1 source) lamoTRIgine Drug Allergy 08-09-20 Swelling [facility] Doxycycline (1 [...] Adhesive agent; Translations: [ADHESIVE] Drug Allergy 02-24-20 15 Other: See Comments [facility] [...] sources) Propoxyphene; Translations: [PROPOXYPHENE] Drug Allergy 11-08-19 09 Mental Status Change, Other: See Comments [facility] (20 sources) zolpidem; Translations: [ZOLPIDEM] Drug Allergy 08-09-20 Mental Status Change [facility] (20 sources) Adhesive Tape-Silicones; Translations: [ADHESIVE TAPE-SILICONES] Drug Allergy 02-24-20 15 Unknown [facility] (20 sources) Propoxyphene N-Acetaminophen; Translations: [PROPOXYPHENE N-ACETAMINOPHEN] Drug Allergy 02-09-20 06 Other: See Comments [facility] (20 sources) Acetaminophen Drug Allergy 11-08-19 Other [facility] (20 sources) moxifloxacin; Translations: [moxifloxacin HCl] Drug Allergy 11-08-19 Other [facility] (20 sources) Propoxyphene; Translations: [propoxyphene napsylate] Drug Allergy 11-08-19 Other [facility] (20 sources) zolpidem; Translations: [zolpidem tartrate] Drug Allergy 11-08-19 Other [facility] (20 sources) Adhesive agent Drug Allergy 02-24-20 Other: See Comments [facility] (5 sources) HYDROcodone Drug Allergy 10-23-19 Confusion [facility] Comment on above: Nightmares, Suicidal Ideation (1 source) Acetaminophen Drug Allergy 02-04-20 25 [facility] Repository (1 source) Doxycycline Drug Allergy 02-04-20 25 [facility] Rep[facility] (1 source) HYDROcodone Drug Allergy 02-04-20 [facility] Repository (1 source) lamoTRIgine Drug Allergy 02-04-20 25 [facility] Repository (1 source) Latex Drug allergy (disorder) 09-18-19 25 [facility] Rep[facility] (1 source) oxyCODONE Drug Allergy 02-04-20 [facility] Repository Medications Current Medications Medication Drug Class(es) [...] 6 HOURS NEEDED as needed for Pain 12 September 01, 2021 September 25, 2021 9:06pm Start: [...] hydrochloride 0.137 mg/actuat metered dose nasal spray (9 sources) Histamine-1 Receptor Antagonist Start: 03-16-2024 End: 06-18-2024 Azelastine 137 mcg (0.1 %) spray,non-aerosol Active 2 NMA INTRANASAL TWICE A DAY March 16, 2024 12:00am BD Sry/needle eclips (20 sources) Start: 02-23-2024 BD Sry/needle eclips Active 0 IM .COMPLEX 12 February 23, 2024 12:16pm intramuscularly; 3ml #3578 [...] 10-14-2024 Brimo nidine 0.2 % drops Active 1 NMA OPHTHALMIC AT BEDTIME October 14, 2024 1:00am Start: 05-03-2024 End: 11-01-2024 take 1 drop(s) into the eye(s) twice daily brimonidine (ALPHAGAN) 0.2 % ophthalmic solution Use 1 Drop in both eyes two times a day. 30 mL 06/10/2024 11/01/2024 Discontinued (Course of therapy completed) [...] sources) Start: 06-07-2022 take 1 capsule by [facility] daily D-Mannose 500 mg capsule Active [...] capsule (20 sources) take 1 capsule by [facility] once daily d-mannose 500 mg capsule Take 500 mg by mouth once daily. Suspended take 1 capsule by mouth once eugenie ly d-mannose 500 mg capsule Take 500 mg by mouth once daily. Active diazePAM 2 mg oral tablet (11 sources) Benzodiazepine Start: 02-03-2025 take 1 tablet by mouth three times daily as needed for pain Diazepam (Valium) 2 mg tablet Active 2 mg PO THREE TIMES A DAY as needed for Muscle pain/spasm 15 February 03, 2025 12:00am Start: 03-16-2024 End: 06-18-2024 [...] 1,000 mcg intramuscularly once every month. Vitamin F-32-ofeqpykilzopmt 07/19/2022 Suspended Start: 07-19-2022 inject 1000 ug by in tramuscular injection every month DODEX 1,000 mcg/mL Inject 1,000 mcg intramuscularly once every month. Vitamin L-51-dljvkcrfnuocuk 07/19/2022 Active Start: 07-19-2022 DODEX 1,000 mc g/mL inject 1 milliliter ( 1000 MCG ) intramuscularly Every Month 07/19/2022 Active Start: 07-19-2022 DODEX 1,000 mc g/mL inject 1 milliliter ( 1000 MCG ) intramuscularly Every Month 0 07/19/2022 Active Comment on above: inject 1 milliliter ( 1000 MCG ) intramuscularly Every Month donepezil hydrochloride 10 mg oral tablet (20 sources) Start: 02-07-20 take 1 tablet by mouth once daily Donepezil 10 mg tablet Active 10 mg PO DAILY February 06, 2025 12:00am Start: 11-12-2023 End: 02-06-2025 take 2 tablets by mouth once daily Donepezil (Aricept) 5 mg tablet Discontinued 10 mg PO DAILY November 12, 2023 3:21pm February 06, 2025 10:52am Start: 10-16-2023 End: 10-14-2024 take 1 tablet [...] eyes two times a day. 15 mL 11 11/01/2024 Active enteric contrast (will be provided [...] FLUTICASONE,) 50 mcg/actuation nasal spray Use 1 [place] in each nostril once daily. 09/14/2024 Discontinued [...] Discontinued 100 mg PO AT BEDTIME 7 March 01, 2021 12:00am September 04, [...] Active HYDROmorphone hydrochloride 2 mg oral tablet (2 sources) Opioid Agonist Start: 02-03-2025 take 1 tablet [...] billion cell-50 mg Capsule (20 sources) Start: 01-16-2022 take 2 capsules by mouth once daily [...] 12 % lotion 06/13/2022 Active lactobacillus acidophilus [id number] unt oral capsule (20 sources) Start: 03-27-2021 [...] DAILY June 06, 2022 11:00pm Multivitamin tablet (5 sources) Start: 06-07-2022 Multivitamin t ablet Active [...] hydrochloride 0.665 mg/actuat metered dose nasal spray (5 sources) Histamine-1 Receptor Inhibitor Start: 10-14-2024 Olopatadine [...] 2024 1:00am PEP device (20 sources) Start: 4 PEP device Active 0 .ROUTE .MEDSUPPLY 1 April 06, 2024 8:26am with training Start: 04-05-2024 End: 04-06-2024 PEP device Discontinued 0 .R OUTE .MEDSUPPLY April 05, 2024 12:00am April 06, 2024 8:27am with training Start: 05-09-2021 End: 10-08-2023 PEP device Discontinued 0 .R OUTE .MEDSUPPLY 1 May 09, 2021 10:34am October 08, 2023 3:29pm with training Start: 05-09-2021 End: 10-08-2023 PEP device Discontinued 0 .R OUTE .MEDSUPPLY 1 May 09, 2021 9:34am October 08, 2023 2:29pm with training Start: 05-09-2021 PEP device Act song 0 .ROUTE .MEDSUPPLY May 09, 2021 9:34am with training Start: 05-09-2021 PEP device Act song 0 .ROUTE .MEDSUPPLY May 09, 2021 10:34am with training Start: 05-09-2021 End: 05-09-2021 PEP device Discontinued 0 .R OUTE .MEDSUPPLY May 09, 2021 10:09am May 09, 2021 10:34am with training Start: 05-09-2021 End: 05-09-2021 PEP device Discontinued 0 .R OUTE .MEDSUPPLY May 08, 2021 11:00pm May 09, 2021 9:34am with training Start: 05-09-2021 End: 05-09-2021 PEP device Discontinued 0 .R OUTE .MEDSUPPLY May 09, 2021 12:00am May 09, 2021 [...] 1 Drop (A LCAINE) syringes BD ECLIPSE (12 sources) Start: 04-11-2023 syringes BD EC LIPSE Active 0 .Route .MEDSUPPLY April 11, 2023 12:00am Bd SYR/leticia Eclipse 3ml #5782 Start: 04-11-2023 syringes BD EC LIPSE Active 0 .Route .MEDSUPPLY April 10, 2023 11:00pm Bd SYR/leticia Eclipse 3ml #5782 Start: 04-11-2023 syringes BD EC LIPSE Active 0 .ROUTE .MEDSUPPLY April 10, 2023 11:00pm Bd SYR/leticia Eclipse 3ml #5782 Start: 04-11-2023 syringes BD EC LIPSE Active 0 .ROUTE .MEDSUPPLY April 11, 2023 12:00am Bd SYR/leticia Eclipse [...] 24, 2025 10:45am Can be administered at [facility] Start: 09-18-2023 End: 06-05-2024 Cyanocobalamin (Vitamin B-12 [...] System Stimulant, Methylxanthine Start: 02-15-2022 End: 04-25-2022 Mjuzjsnrszqca-Pyvo-Wtopctsrq e (Midol Complete) 500-60-15 mg Tablet Discontinued {tbl} February 15, 2022 12:00am April 25, 2022 11:40am acetaminophen 500 mg / pamabrom 25 mg / pyrilamine maleate 15 mg oral tablet (20 sources) Start: 02-15-2022 End: 04-25-2022 Vpiomvmwcjjkg-Kcddkfsr-Qemos am (Pamprin Multi-Symptom) 500-25-15 mg Tablet Discontinued {tbl} February 15, 2022 12:00am April 25, 2022 11:40am acyclovir 800 mg oral tablet (17 sources) Herpesvirus Nucleoside Analog DNA Polymerase Inhibitor, [...] /3 mL (0.083 %) solution for nebulization (5 sources) Start: 02-11-2022 End: 04-07-2023 take 2.5 [...] 5 days cephalexin 500 mg oral capsule (5 sources) Cephalosporin Antibacterial Start: 05-04-2024 End: 06-07-2024 [...] D3) 50 mcg (2,000 unit) capsule Discontinued 41485 U PO EVERY MONTH August 02, 2020 [...] (Vitamin B-12 ) (Dodex) 1,000 mcg/mL solution (8 sources) Start: 07-22-2023 End: 09-18-2023 Cyanocobalamin (Vitamin [...] vials. Cyanocobalamin (Vitamin B-12) 1,000 mcg/mL solution (5 sources) Start: 04-01-2024 End: 01-24-2025 inject 1000 ug by intramuscular injection every month Cyanocobalamin (Vitamin B-12) 1,000 mcg/mL solution Discontinued 1000 ug IM EVERY MONTH April 01, 2024 12:00am January 24, 2025 10:45am Can be administered at [facility] Start: 04-01-2024 inject 1000 ug by in tramuscular injection every month Cyanocobalamin (Vitamin B-12) 1,000 mcg/mL solution Active 1000 ug IM EVERY MONTH April 01, 2024 12:00am Can be administered at [facility] D marlo (20 sources) Start: 03-20-2022 End: 06-07-2022 D marlo Discontinued PO Augu st 2021 12:00am June 07, 2022 1:08pm Start: 03-20-2022 End: 06-07-2022 D marlo Discontinued PO Augu st 2021 11:00pm June 07, 2022 12:08pm 1 ml denosumab 60 mg/ml prefilled syringe (20 sources) RANK Ligand Inhibitor Start: 06-07-2022 End: 01-24-2025 Denosumab (Prolia) 60 mg/mL syringe Discontinued 60 mg SC every 6 months February 18, 2024 10:21am January 24, 2025 10:45am Start: 06-28-2020 End: [...] every 6 months. Last injection November 2020 esomeprazole 40 mg delayed release oral capsule [...] Take by mouth as nee ded. Ipratropium Riparius 42 mcg (0.06 %) spray,non-aerosol (5 sources) Start: 10-08-2023 End: 03-16-2024 Ipratropium Riparius 42 mcg (0.06 %) spray,non-aerosol Discontinued 2 [...] Discontinued 100 mg PO TWICE A DAY June 08, 2024 9:42am December 20, 2024 1:37pm Comment on above: Take 1 tablet by ricki th twice daily for 180 days. levothyroxine sodium [...] once daily. lidocaine 0.05 mg/mg medicated patch (5 sources) Antiarrhythmic, Amide Local Anesthetic Start: 5 End: 5 Lidocaine (Lidoderm) 5 % adhesive patch,medicated Discontinued [...] on above: Take 1 tablet by ricki one time only for 1 dose. Please [...] ded. meclizine hydrochloride 25 mg oral tablet (20 sources) Antiemetic Start : 01-01 End: 10-08 [...] hydrochloride 10 mg oral tablet (20 sources) R-ycelat-D-aspartat e Receptor Antagonist Start : 04-10 End: 06-08 take 1 tablet by mouth twice daily Memantine 10 mg tablet Discontinued 10 mg PO TWICE A DAY 180 September 18, 2023 11:39am June 08, 2024 9:43am methylPREDNISolone 4 mg oral tablet (18 sources) Corticosteroid Start : 03-16 End: 04-05 [...] DIR midodrine hydrochloride 2.5 mg oral tablet (17 sources) alpha-Adrenergic Agonist Start: 01-08-2023 End: 01-29-2023 [...] mg / trimethoprim 160 mg oral tablet (5 sources) Dihydrofolate Reductase Inhibitor Antibacterial, Sulfonamide Antimicrobial [...] as needed. valACYclovir 500 mg oral tablet (15 sources) Herpesvirus Nucleoside [...] mg tablet Discontinued 20 mg PO DAILY 90 April 16, 2024 4:07pm June 08, 2024 9:43am Comment on above: Once daily Take 20 mg by mouth once daily. Problems Active Problems Problem Classification Problem Date Documented Da te Episodic/Chronic Abdominal hernia (20 sources) Hiatal hernia; Translations: [Diaphragmatic hernia without obstruction or gangrene] Onset: 5 Episodic Comment on above: Moderate to large Abdominal pain (6 sources) Epigastric pain; Translations: [...] 4 Chronic Comment on above: Lingular subsegment Conditions associated with dizziness or vertigo (20 sources) Lightheadedness; Translations: [Dizziness and giddiness] Onset: 4 Episodic Conduction disorders (1 source) Cardiac pacemaker in situ; Translations: [Presence of cardiac pacemaker] Onset: 4 07-19-2024 Chronic Coronary atherosclerosis and other heart disease (20 sources) Coronary atherosclerosis; Translations: [Atherosclerotic heart disease of teller coronary artery without angina pectoris] Onset: 1 Chronic Coronary atherosclerosis and other heart disease (20 sources) Stented coronary artery; Translations: [Presence of coronary angioplasty implant and graft] Onset: 4 Episodic Comment on above: 2 STENTS/ Deficiency [...] 05-28-2022 Episodic Joint disorders and dislocations; trauma-related (6 sources) Chronic instability of left knee joint; Translations: [Chronic instability of knee, left knee] Onset: 4 07-12-2024 Chronic Malaise and fatigue (20 sources) Physical deconditioning; Translations: [Other malaise] Onset: Episodic Malignant neoplasm without specification of site (20 [...] D deficiency, unspecified] Onset: 5 03-12-2021 Chronic Nutritional deficiencies (20 sources) Cobalamin deficiency; Translations: [Deficiency of other specified B group vitamins] Onset: 4 10-21-2022 Episodic Open wounds of extremities (7 sources) Open wound of lower limb; Translations: [Unspecified open wound, right lower leg, initial encounter] Onset: 5 05-04-2024 Episodic Open wounds of head; neck; and trunk (20 sources) Scalp laceration; Translations: [Laceration without foreign body of scalp, initial encounter] 07-21-2022 Episodic Osteoarthritis (18 sources) Osteoarthritis of left knee joint; Translations: [Unilateral primary osteoarthritis, left knee] Onset: 4 07-19-2024 Chronic Osteoporosis (20 sources) Osteoporosis; Translations: [Age-related osteoporosis without current pathological fracture] Onset: Chronic Comment on above: Kyphoscoliosis Other acquired deformities (2 sources) Postural kyphosis; Translations: [Postural kyphosis, thoracic region] 03-25-2024 Chronic Other acquired deformities (20 sources) Kyphosis deformity of spine; Translations: [Unspecified kyphosis, site unspecified] 09-14-2024 Chronic Other acquired deformities (15 sources) Kyphoscoliosis deformity of spine; Translations: [Scoliosis, unspecified] 04-05-2024 Chronic Other acquired deformities (1 source) Unspecified kyphosis, site unspecified; Translations: [Kyphosis, unspecified kyphosis type, unspecified spinal region] Onset: 5 Chronic Other acquired deformities (1 source) Scoliosis, unspecified; Translations: [Scoliosis, unspecified] Onset: 5 Chronic Other acquired deformities (14 sources) Deformity of sternum; Translations: [Acquired deformity of chest and rib] 02-12-2023 Episodic Other aftercare (20 sources) Long-term current use of anticoagulant; Translations: [penitentiary (current) use of anticoagulants] 03-23-2022 Episodic Other aftercare (20 sources) Surgical follow-up; Translations: [Encounter for removal of sutures] 07-24-2022 Episodic Other aftercare (4 sources) Encounter for removal of sutures; Translations: [Encounter for removal of sutures] Episodic Other aftercare (5 sources) Drug therapy finding; 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: [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] 06-15-2024 Episodic Other [...] Onset: 1 Episodic Other connective tissue disease (19 sources) Bursitis of olecranon of left elbow; Translations: [Olecranon bursitis, left elbow] 10-16-2022 Episodic Other connective tissue disease (17 sources) Pain in left lower limb; Translations: [Pain in left leg] 12-25-2022 Episodic Other connective tissue disease (5 sources) Pain in left leg; Translations: [Pain in limb] 12-25-2022 Episodic Other connective tissue disease (12 sources) Increased muscle tone; Translations: [Other specified [...] fracture of rib(s), unspecified] Episodic Other fractures (8 sources) Fracture of right rib; Translations: [Fracture [...] 10-08-2020 Episodic Other inflammatory condition of skin (16 sources) Pruritus, unspecified; Translations: [Pruritus] 10-08-2020 Episodic [...] to external causes (20 sources) Injury of left shoulder; Translations: [Unspecified injury of left shoulder and upper arm, initial encounter] 09-21-2022 Episodic Other injuries and conditions due to external causes (9 sources) Injury of left elbow region; Translations: [...] Onset: 5 Chronic Other nervous system disorders (20 sources) Impairment of balance; Translations: [Other abnormalities [...] Onset: 4 Episodic Other non-traumatic joint disorders (19 sources) Pain in elbow; Translations: [Pain in left elbow] 10-16-2022 Episodic Other non-traumatic joint disorders (20 sources) Pain in left knee; Translations: [Left knee pain] Onset: 4 01-02-2023 Episodic Other screening for suspected conditions (not mental disorders or infectious disease) (10 sources) Liver function tests abnormal; Translations: [Abnormal results of liver function studies] Onset: 4 09-03-2024 Episodic Tiffany-; endo-; and myocarditis; cardiomyopathy (except that caused by tuberculosis or sexually transmitted disease) (3 sources) Cardiomyopathy; Translations: [Cardiomyopathy, unspecified] Onset: 4 06-18-2024 Chronic Poisoning by nonmedicinal substances (18 sources) Bee sting; Translations: [Toxic effect of [...] health status] 10-29-2024 Episodic Residual codes; unclassified (11 sources) History of hernia repair; Translations: [Other specified postprocedural states] 10-29-2024 Episodic Comment on above: [facility] Residual codes; unclassified (4 sources) Edema of lower extremity; Translations: [Localized edema] 11-09-2024 Episodic Residual codes; unclassified (1 source) Other specified health status; Translations: [Decreased activities of daily living (ADL)] Onset: 5 Episodic Skin and subcutaneous tissue infections (5 sources) Bacterial infection of skin; Translations: [Local infection of the skin and subcutaneous tissue, unspecified] 06-05-2024 Episodic Spondylosis; intervertebral disc disorders; other back problems (2 sources) Degeneration of lumbar intervertebral disc; Translations: [Degeneration of intervertebral disc of lumbar region, unspecified whether pain present] 11-03-2024 Chronic Spondylosis; intervertebral disc disorders; other back problems (1 source) Cervical radiculopathy; Translations: [Radiculopathy, cervical region] 09-10-2024 Episodic Sprains and strains (6 sources) Lower back injury; Translations: [Strain of muscle, fascia and tendon of lower back, initial encounter] Onset: 4 06-15-2024 Episodic Superficial injury; contusion (20 sources) Contusion [...] unspecified whether pain present] Onset: 5 Unclassified (2 sources) Clavicle fracture Urinary tract infections (20 sources) [...] Classification Problem Date Documented Da te Episodic/Chronic Cancer of breast (20 sources) History of malignant neoplasm of breast; Translations: [Personal history of malignant neoplasm of breast] Onset: 06-10-2008 07-19-2024 Episodic Deficiency and other anemia (1 source) Iron deficiency anemia, unspecified; Translations: [Iron deficiency anemia, unspecified iron deficiency anemia type] Onset: 07-19-2024 Episodic Meningitis (except that caused by tuberculosis or sexually transmitted disease) (1 source) Zoster meningitis; 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] Onset: 06-16-2024 Episodic Other acquired deformities (9 sources) Acquired [...] Onset: 05-04-2024 Episodic Other non-traumatic joint disorders (1 source) Pain in right knee; Translations: [Pain in right knee] Onset: 06-16-2024 Episodic Pancreatic disorders (not diabetes) (3 sources) [...] repair of paraesophageal hernia] Onset: 10-21-2024 Episodic Unclassified (20 sources) Parkinsonism; Translations: [Parkinsonism, unspecified Parkinsonism type (HCC)] Onset: 07-20-2024 Resolved: 07-20-2024 07-20-2024 Chronic Unclassified (20 sources) Partial complex seizures 03-18-2022 Unclassified (20 sources) h/o back surgery 03-18-2022 Comment on above: LUMBAR FUSION Results Test Name Value Interpretation Reference Range Facility Anion gap in Serum or Plasma Ordered By: Kana Whitt on 02-06-2025 Anion gap [Moles/Vol] 9 mmol/L - [facility] BUN/creatinine ratioOrdered By: Kana Whitt on 02-06-2025 Urea nitrogen/Creatinine [Mass ratio] 18.3 mg/mg - [facility] Bilirubin, totalOrdered By: Kana Whitt on 02-06-2025 Bilirubin [Mass/Vol] 0.54 mg/dL 0.00-1.30 [facility] Carbon dioxide, total [Moles /volume] in Central venous bloodOrdered By: Kana Whitt on 02-06-2025 CO2 [Moles/Vol] 27.4 mmol/L 21.0-32.0 [facility] Chloride assayOrdered By: tino Whitt on 02-06-2025 Chloride [Moles/Vol] 101 mmol/L 98-108 [facility] Erythrocyte distribution wid th ratioOrdered By: Kana Whitt on 02-06-2025 Erythrocyte distribution width (RBC) [Ratio] 13.3 % 11.6-14.6 [facility] Erythrocyte distribution wid th standard deviationOrdered By: Kana Whitt on 02-06-2025 Erythrocyte distribution width (RBC) [Ratio] 43.9 fl 35.1-43.9 [facility] Glomerular filtration rate ( GFR) estimation/1.73 sq m using serum, plasma, or whole bOrdered By: Kana Whitt on 02-06-2025 GFR/1.73 sq M.predicted among non-blacks MDRD (S/P/Bld) [Vol rate/Area] 66 mL/min/{1.73_m2} >60 [facility] Comment on above: mL/min/1.73m2 CKD-EP I Creatinine Equation (2020) Hematocrit Auto (Bld) [Volum e fraction]Ordered By: Kana Whitt on 02-06-2025 Hematocrit (Bld) [Volume fraction] 29.5 % Low 37-47 [facility] Hemoglobin measurementOrdere d By: Kana Whitt on 02-06-2025 Hemoglobin (Bld) [Mass/Vol] 9.2 g/dL Low 12.0-15.0 [facility] Laboratory - Chemistry and C hemistry - challengeOrdered By: Kana Whitt on 02-06-2025 AST [Catalytic activity/Vol] 24 U/L <32 [facility] MCV (mean corpuscular volume ) determinationOrdered By: Kana Whitt on 02-06-2025 MCV (RBC) [Entitic vol] 91.3 fL 81-99 [facility] Mean corpuscular hemoglobin (MCH) determinationOrdered By: Kana Whitt on 02-06-2025 MCH (RBC) [Entitic mass] 28.5 pg 27.0-32.0 [facility] Mean corpuscular hemoglobin concentration (MCHC) determinationOrdered By: Kana Whitt on 02-06-2025 MCHC (RBC) [Mass/Vol] 31.2 g/dL Low 32-36 [facility] Mean platelet volume determi nationOrdered By: Kana Whitt on 02-06-2025 Platelet mean volume (Bld) [Entitic vol] 10.4 fL 6.2-12.0 [facility] Platelet countOrdered By: Rafael Whitt on 02-06-2025 Platelets (Bld) [#/Vol] 143 10*3/uL Low 150-450 [facility] Potassium measurement (mass/ volume)Ordered By: Kana Whitt on 02-06-2025 Potassium (Unsp spec) [Mass/Vol] 4.0 mmol/L 3.3-5.1 [facility] RBC Auto (Bld) [#/Vol]Ordere d By: Kana Whitt on 02-06-2025 RBC (Bld) [#/Vol] 3.23 10*6/uL Low 4.2-5.4 [facility] Serum creatinine measurement (mass/volume)Ordered By: Kana Whitt on 02-06-2025 Creatinine [Mass/Vol] 0.88 mg/dL 0.70-1.20 [facility] Serum globulin measurementOr dered By: Kana Whitt on 02-06-2025 Globulin (S) [Mass/Vol] 2.8 g/dL 2.2-4.2 [facility] Serum glucose measurement (m ass/volume)Ordered By: Kana Whitt on 02-06-2025 Glucose [Mass/Vol] 107 mg/dL High 70-99 [facility] Serum or plasma alanine ruano otransferase (ALT) measurementOrdered By: Kana Whitt on 02-06-2025 ALT [Catalytic activity/Vol] 14 U/L <35 [facility] Serum or plasma albumin osiris urement (mass/volume)Ordered By: Kana Whitt on 02-06-2025 Albumin [Mass/Vol] 3.3 g/dL Low 3.4-4.8 [facility] Serum or plasma albumin/glob ulin mass ratioOrdered By: Kana Whitt on 02-06-2025 Albumin/Globulin [Mass ratio] 1.2 {ratio} 0.9-2.4 [facility] Serum or plasma alkaline antelmo sphatase measurementOrdered By: Kana Whitt on 02-06-2025 ALP [Catalytic activity/Vol] 98 U/L 35-104 [facility] Serum or plasma calcium osiris urement (mass/volume)Ordered By: Kana Whitt on 02-06-2025 Calcium [Mass/Vol] 8.7 mg/dL 7.6-11.0 [facility] Serum or plasma urea nitroge n measurement (mass/volume)Ordered By: Kana Whitt on 02-06-2025 Urea nitrogen [Mass/Vol] 16 mg/dL 4-19 [facility] Sodium levelOrdered By: Jolie Whitt on 02-06-2025 Sodium [Moles/Vol] 137 mmol/L 133-145 [facility] Total proteinOrdered By: Matthew Whitt on 02-06-2025 Protein [Mass/Vol] 6.2 g/dL 5.9-8.4 [facility] White blood cell (WBC) count Ordered By: Kana Whitt on 02-06-2025 WBC (Bld) [#/Vol] 4.8 10*3/uL 4.4-11.0 [facility] Emergency Department Summary on 02-03-[address] [facility] Medical Records Department [address] [place] [address] Emergency Department Summary 02/03/25 MR#: [id number] Acct: [id number] Name: LAUREN ALCARAZ Rep #: [id number] : 1940 84 From: Isma Bustamante DO [...] evaluation. She denies any other injury [facility] Medical History (Updated 02/03/25 @ 07:58 by [...] artery ( 1989) Atherosclerotic heart disease of teller coronary artery without angina pectoris Essential hypertension [...] Medications ???Medication ???Instructions ???Recorded ???Last Taken ???Type L.acidophil-L.casei-B.bif id-B.longum-FOS 1 cap PO DAILY Supplement 09/02/21 10/05/21 [...] 10/14/24 Unknown (more content not included)... Normal [facility] Extremity Upper without Cont raon 02-03-2025 Extremity Upper without Contra [facility] Imaging Services [address] [place] [address] Extremity Upper without Contra MR#: [id number] Acct: [id number] Name: LAUREN ALCARAZ Rep #: [id number] : 1940 F 84 From: Izzy cabrera MD PCP: Dr. Chema Perry MD Status: REG ER Study: Extremity Upper without Contra Date of Exam: 0 02/03/25 Exam# [id number] Ordering Dr: Isma Bustamante DO PROCEDURE: EXTREMITY [...] changes of the humeral head. [facility] CC: Dr. Chema Perry MD; Isma Bustamante DO Computer Network And Systems Engineer: Signed Normal [facility] Shoulder min 2 Viewson 02-03 Shoulder min 2 Views [facility] Imaging Services [address] [place], [place] [id number] Shoulder min 2 Views MR#: [id number] Acct: [id number] Name: LAUREN ALCARAZ Rep #: [id number] : 1940 F 84 From: Izzy cabrera MD PCP: Dr. Chema Perry MD Status: REG ER Study: Shoulder min 2 Views Date of Exam: 02/03/25 Exam# [id number] Ordering Dr: Isma Bustamante DO PROCEDURE: SHOULDER [...] changes of the humeral head. [facility] CC: Dr. Chema Perry MD; Isma Bustamante DO Computer Network And Systems Engineer: Signed Normal [facility] Inital Evaluation (1) - PTon 01-12-2025 Inital Evaluation (1) - PT [facility] Physical Therapy Health[address] [place] [address] / REHABILITATION SERVICES INITIAL EVALUATION MR#: [id number] Acct: [id number] Name: LAUREN ALCARAZ Rep #: [id number] : 1940 84 From: Gunnar Graves PT, ATC Referring Dr.: Dr. Chema Perry MD Status: R EG RCR Insurance: MEDICARE PART A B [id number] [id number] Patient's Visit Information Visit Information Visit Information: [...] reports she has had PT at [facility] and with home health at home which [...] perform ADL's and To increase tolerance to activity/condition/positi on Therapeutic Exercise to Include: Strength training, Endurance training, Balance training, Gait and locomotor training, Dynamic Lumbar Stabilization and Scapular Strength/Stabilization For the Purpose of:: To improve muscle performance and motor function, To improve ability to perform ADL's, To increase tolerance to activity/condition/positi on and To improve performance and independence with ADL's Text: Thank you for the opportunity to evaluate your patient. For Medicare and Medicare HMO plans, please review the plan of care and approve it. It will need to be FAXED BACK to us at [phone] for Medicare purposes. For Medicare only, by signing this I certify the plan of care. Please let me know if there are questions or concerns regarding this plan of care. Physician Signature: Date: _ 01/12/25 1506 CC: Dr. Chema Perry MD [facility] Signed Normal [facility] Inital Evaluation (1) - PT [facility] Physical Therapy [facility] [facility] [place] [address] / REHABILITATION SERVICES INITIAL EVALUATION MR#: [id number] Acct: [id number] Name: LAUREN ALCARAZ Rep #: [id number] : 1940 84 From: Gunnar Graves PT, ATC Referring Dr.: Dr. Chema Perry MD Status: R EG RCR Insurance: MEDICARE PART A B [id number] [id number] Patient's Visit Information Visit Information Visit Information: [...] Pt reports she has had PT at [facility] and with home health at home which [...] perform ADL's and To increase tolerance to activity/condition/positi on Therapeutic Exercise to Include: Strength training, Endurance training, Balance training, Gait and locomotor training, Dynamic Lumbar Stabilization and Scapular Strength/Stabilization For the Purpose of:: To improve muscle performance and motor function, To improve ability to perform ADL's, To increase tolerance to activity/condition/positi on and To improve performance and independence with ADL's Text: Thank you for the opportunity to evaluate your patient. For Medicare and Medicare HMO plans, please review the plan of care and approve it. It will need to be FAXED BACK to us at [phone] for Medicare purposes. For Medicare only, by signing this I certify the plan of care. Please let me know if there are questions or concerns regarding this plan of care. Physician Signature: Date: _ 01/12/25 1505 CC: Dr. Chema Perry MD [facility] Signed [facility] CNOVon 12-23-2024 CNOV [facility] CNOVon 12-20-2024 [facility]OV [facility] CNOVon 12-19-2024 [facility]OV [facility] CNOVon 12-09-2024 [facility]OV [facility] CNOVon 12-03-2024 CNOV [facility] CNTHERAPYon 11-26-2024 CNTHERAPY OT/PT/Speech Visit ([facility]) ----- LILLIANLAUREN Dinero ([id number]) 1940 F Date Time Provider Department 11/26/24 4:[address] [facility] Date Time Provider Department Center 11/26/2024 4:15 PM [id number] RADHA [facility] Reason for Visit: OT Discharge [...] 1 - Mental Status Change PERCOCET (OXYCODONE-ACETAMINOPHEN) 08/09/2020 1 - Mental Status Change PROPOXYPHENE 11/07/2008 [...] 1,000 mcg intramuscularly once every month. Vitamin X-05-ftfcohitrvasbc - ammonium lactate (LAC-HYDRIN) 12 % lotion [...] 6 months. Last injection November 2020 [facility] CNTHERAPYon 11-19-2024 CNTHERAPY OT/PT/Speech Visit (OTC) ----- LAUREN ALCARAZ ([id number]) 1940 F Date Time Provider Department 11/19/24 4:[address] [facility] Date Time Provider Department Center 11/19/2024 4:15 PM [id number], DIANDRA [facility] Reason for Visit: Occupational [...] 1 - Mental Status Change PERCOCET (OXYCODONE-ACETAMINOPHEN) 08/09/2020 1 - Mental Status Change PROPOXYPHENE 11/07/2008 [...] 1,000 mcg intramuscularly once every month. Vitamin O-75-qxalrzbvgjrsjf - ammonium lactate (LAC-HYDRIN) 12 % lotion [...] 6 months. Last injection November 2020 Normal [facility] CASE MANAGEMon 11-17-2024 CASE MANAGEM Normal [facility] CASE MANAGEM Normal [facility] CNDSon 11-17-2024 CNDS Normal [facility] ANES POSTPROC EVALon 025 ANES POSTPROC EVAL Normal [facility] ANES PRE-OPon 11-16-2024 ANES PRE-OP Normal [facility] CASE MGT INIT ASSESon 2024 CASE MGT INIT ASSES Normal [facility] CBC panel Auto (Bld)on 11-16 Erythrocyte distribution width (RBC) [Ratio] 13.7 % Normal 11.5-15.0 [facility] Comment on above: Order Comment: Speci men Type: BLOOD SPECIMENOrdering Facility: [facility] Address: [address] [place], [place] [id number] Performed By: #### 5 8410-2 ####[facility] LABCLIA [id number] [place] [address] [place] Hematocrit (Bld) [Volume fraction] 36.3 % Normal 36.0-46.0 [facility] Comment on above: Order Comment: Speci men Type: BLOOD SPECIMENOrdering Facility: [facility] Address: [address] [place] [address] Performed By: #### 5 8410-2 ####[facility] LABIA [id number] [place] [address] [place] Hemoglobin (Bld) [Mass/Vol] 11.6 g/dL Normal 11.5-15.5 [facility] Comment on above: Order Comment: Speci men Type: BLOOD SPECIMENOrdering Facility: [facility] Address: [address] [place] [address] Performed By: #### 5 8410-2 ####[facility] [id number] [place] [address] [place] MCH (RBC) [Entitic mass] 29.5 pg Normal 26.0-34.0 [facility] Comment on above: Order Comment: Speci men Type: BLOOD SPECIMENOrdering Facility: [facility] Address: [address] [place] [address] Performed By: #### 5 8410-2 ####[facility] [id number] [place] [address] [place] MCHC (RBC) [Mass/Vol] 32.0 g/dL Normal 30.5-36.0 [facility] Comment on above: Order Comment: Speci men Type: BLOOD SPECIMENOrdering Facility: [facility] Address: [address] [place] [address] Performed By: #### 5 8410-2 ####[facility] [id number] [place] [address] [place] MCV (RBC) [Entitic vol] 92.4 fL Normal 80.0-100.0 [facility] Comment on above: Order Comment: Speci men Type: BLOOD SPECIMENOrdering Facility: [facility] Address: [address] [place] [address] Performed By: #### 5 8410-2 ####[facility] LABCLIA [id number] [facility] [place] [address] [place] Nucleated RBC (Bld) [#/Vol] 10*3/uL Normal <0.01 [facility] Comment on above: Order Comment: Speci men Type: BLOOD SPECIMENOrdering Facility: [facility] Address: [address] [place] [address] Performed By: #### 5 8410-2 ####[facility] LABIA [id number] [place] [address] [place] Platelet mean volume (Bld) [Entitic vol] 10.9 fL Normal 9.0-12.7 [facility] Comment on above: Order Comment: Speci men Type: BLOOD SPECIMENOrdering Facility: [facility] Address: [address] [place] [address] Performed By: #### 5 8410-2 ####[facility] LABIA [id number] [place] [address] [place] Platelets (Bld) [#/Vol] 171 10*3/uL Normal 150-400 [facility] Comment on above: Order Comment: Speci men Type: BLOOD SPECIMENOrdering Facility: [facility] Address: [address] [place] [address] Performed By: #### 5 8410-2 ####[facility] LABIA [id number] [place] [address] [place] RBC (Bld) [#/Vol] 3.93 10*6/uL Normal 3.90-5.20 [facility] Comment on above: Order Comment: Speci men Type: BLOOD SPECIMENOrdering Facility: [facility] Address: [address] [place] [address] Performed By: #### 5 8410-2 ####[facility] LABCLIA [id number] [address] [address] [place] WBC (Bld) [#/Vol] 4.86 10*3/uL Normal 3.70-11.00 [facility] Comment on above: Order Comment: Speci men Type: BLOOD SPECIMENOrdering Facility: [facility] Address: [address] [place] [address] Performed By: #### 5 8410-2 ####[facility] LABIA [id number] [place] [address] [place] Comprehensive metabolic 2000 panelon 11-16-2024 Albumin [Mass/Vol] 3.4 g/dL Low 3.9-4.9 [facility] Comment on above: Order Comment: Speci men Type: BLOOD SPECIMENOrdering Facility: [facility] Address: [address] [place] [address] Performed By: #### 2 4323-8, 2777-1, 94026-8 ####[facility] LABIA [id number] [place] [address] [place] ALP [Catalytic activity/Vol] 148 U/L High 34-123 [facility] Comment on above: Order Comment: Speci men Type: BLOOD SPECIMENOrdering Facility: [facility] Address: [address] [place] [address] Performed By: #### 2 4323-8, 2777-1, 68641-4 ####[facility] LABIA [id number] [address] [address] [place] ALT [Catalytic activity/Vol] 27 U/L Normal 7-38 [facility] Comment on above: Order Comment: Speci men Type: BLOOD SPECIMENOrdering Facility: [facility] Address: [address] [place] [address] Performed By: #### 2 4323-8, 27702-15, ####[facility] LABCLIA [id number] [address] [address] [place] Anion gap [Moles/Vol] 10 mmol/L Normal 8-15 [facility] Comment on above: Order Comment: Speci men Type: BLOOD SPECIMENOrdering Facility: [facility] Address: [address] [place] [address] Performed By: #### 2 4323-8, 2776-08, ####[facility] LABCLIA [id number] [address] [address] [place] AST [Catalytic activity/Vol] 25 U/L Normal 13-35 [facility] Comment on above: Order Comment: Speci men Type: BLOOD SPECIMENOrdering Facility: [facility] Address: [address] [place] [address] Performed By: #### 2 4323-8, 2776-08, ####[facility] LABCLIA [id number] [address] [address] [place] Bilirubin [Mass/Vol] 0.4 mg/dL Normal 0.2-1.3 [facility] Comment on above: Order Comment: Speci men Type: BLOOD SPECIMENOrdering Facility: [facility] Address: [address] [place] [address] Performed By: #### 2 4323-8, 2776-08, ####[facility] LABCLIA [id number] [address] [address] [place] Calcium [Mass/Vol] 8.0 mg/dL Low 8.5-10.2 [facility] Comment on above: Order Comment: Speci men Type: BLOOD SPECIMENOrdering Facility: [facility] Address: [address] [place] [address] Performed By: #### 2 4323-8, 27702-15, ####[facility] LABIA [id number] [address] [address] [place] Chloride [Moles/Vol] 105 mmol/L Normal 98-107 [facility] Comment on above: Order Comment: Speci men Type: BLOOD SPECIMENOrdering Facility: [facility] Address: [address] [place] [address] Performed By: #### 2 4323-8, 2777, ####[facility] [id number] [address] [address] [place] CO2 [Moles/Vol] 21 mmol/L Low 22-30 [facility] Comment on above: Order Comment: Speci men Type: BLOOD SPECIMENOrdering Facility: [facility] Address: [address] [place] [address] Performed By: #### 2 4323-8, 2777, ####[facility] [id number] [place] [address] [place] Creatinine [Mass/Vol] 0.75 mg/dL Normal 0.58-0.96 [facility] Comment on above: Order Comment: Speci men Type: BLOOD SPECIMENOrdering Facility: [facility] Address: [address] [place] [address] Performed By: #### 2 4323-8, 2777, ####[facility] [id number] [place] [address] [place] Creatinine and Glomerular filtration rate.predicted panel (S/P/Bld) 80 mL/min/1.73m??? Normal >=60 [facility] Comment on above: Order Comment: Speci men Type: BLOOD SPECIMENOrdering Facility: [facility] Address: [address] [place] [address] Result Comment: Brandy mated Glomerular Filtration Rate [...] GFR. Performed By: #### 2 4323-8, 2776-08, ####[facility] LABCLIA [id number] [address] [address] [place] Glucose [Mass/Vol] 156 mg/dL High 74-99 [facility] Comment on above: Order Comment: Ramirez gamez Type: BLOOD SPECIMENOrdering Facility: [facility] Address: [address] [place] [address] Result Comment: The [place] [employer] (ADA) provides guidance for cutoff [...] Standards of Medical Care in Diabetes 2016, [place] [employer]. Diabetes Care. 2016.39(Suppl 1). Performed By: #### 2 4323-8, 2776-08, ####[facility] LABCLIA [id number] [address] [address] [place] Potassium [Moles/Vol] 4.8 mmol/L Normal 3.7-5.1 [facility] Comment on above: Order Comment: Ramirez gamez Type: BLOOD SPECIMENOrdering Facility: [facility] Address: [address] [place] [address] Performed By: #### 2 4323-8, 27702-15, ####[facility] LABCLIA [id number] [address] [address] [place] Protein [Mass/Vol] 6.0 g/dL Low 6.3-8.0 [facility] Comment on above: Order Comment: Speci men Type: BLOOD SPECIMENOrdering Facility: [facility] Address: [address] [place] [address] Performed By: #### 2 4323-8, 2777-1, ####[facility] LABCLIA [id number] [place] [address] [place] Sodium [Moles/Vol] 136 mmol/L Normal 136-144 [facility] Comment on above: Order Comment: Speci men Type: BLOOD SPECIMENOrdering Facility: [facility] Address: [address] [place] [address] Performed By: #### 2 4323-8, 2777, ####[facility] LABCLIA [id number] [place] [address] [place] Urea nitrogen [Mass/Vol] 13 mg/dL Normal 7-21 [facility] Comment on above: Order Comment: Speci men Type: BLOOD SPECIMENOrdering Facility: [facility] Address: [address] [place] [address] Performed By: #### 2 4323-8, 27702-15, ####[facility] LABCLIA [id number] [place] [address] [place] ERCPon 11-16-2024 ERCP Normal [facility] Magnesium SerPl-mCncon 11-16 Magnesium [Mass/Vol] 1.8 mg/dL Normal 1.7-2.3 [facility] Comment on above: Order Comment: Speci men Type: BLOOD SPECIMENOrdering Facility: [facility] Address: [address] [place], [place] [address] Performed By: #### 2 4323-8, 2777-1, ####[facility] LABCLIA [id number] [place] [address] [place] NURSING PROGon 11-16-2024 NURSING PROG Normal [facility] NURSING PROG Normal [facility] NUTRITIONon 11-16-2024 NUTRITION Normal [facility] PT panel Coag (PPP)on 2024 INR Coag (PPP) [Relative time] 1.2 {INR} Normal 0.9-1.3 [facility] Comment on above: Order Comment: Spechakeem gamez Type: BLOOD SPECIMENOrdering Facility: [facility] Address: [address] [place] [address] Result Comment: Brook min K Antagonist (VKA) Therapeutic Range: INR 2 to 3 (Target INR of 2.5)Note: For patients treated with VKA drugs, such as warfarin, the [place] [employer] 2012 Guideline recommends [...] 2.5 to 3.5 (target INR of 3).Tanja BASILIO, et al. Chest 2012, 141:7S-47SYakov RA, et al. [facility] 2017, 70: 252-289 Performed By: #### 3 4528-0, 14645-7 ####[facility] LABCLIA [id number] [place] [id number] [place] PT Coag (PPP) [Time] 13.3 s High 9.7-13.0 [facility] Comment on above: Order Comment: Ramirez gamez Type: BLOOD SPECIMENOrdering Facility: [facility] Address: [address] [place] [id number] Performed By: #### 3 4528-0, 69756-4 ####[facility] LABCLIA [id number] [place] [address] [place] Phosphate SerPl-mCncon 11-16 Phosphate [Mass/Vol] 2.5 mg/dL Low 2.7-4.8 [facility] Comment on above: Order Comment: Speci men Type: BLOOD SPECIMENOrdering Facility: [facility] Address: [address] [place] [address] Performed By: #### 2 4323-8, 2777-1, 28820-6 ####[facility] LABCLIA [id number] [place] [id number] [place] aPTT PPPon 11-16-2024 aPTT Coag (PPP) [Time] 34.8 s High 23.0-32.4 [facility] Comment on above: Order Comment: Speci men Type: BLOOD SPECIMENOrdering Facility: [facility] Address: [address] [place] [address] Performed By: #### 3 4528-0, 89944-1 ####[facility] LABIA [id number] [place] [address] [place] CBC panel Auto (Bld)on 11-15 Erythrocyte distribution width (RBC) [Ratio] 13.8 % Normal 11.5-15.0 [facility] Comment on above: Order Comment: Speci men Type: BLOOD SPECIMENOrdering Facility: [facility] Address: [address] [place] [address] Performed By: #### 5 8410-2 ####[facility] LABCLIA [id number] [place] [id number] [place] Hematocrit (Bld) [Volume fraction] 35.0 % Low 36.0-46.0 [facility] Comment on above: Order Comment: Speci men Type: BLOOD SPECIMENOrdering Facility: [facility] Address: [address] [place] [address] Performed By: #### 5 8410-2 ####[facility] LABCLIA [id number] [place] [address] [place] Hemoglobin (Bld) [Mass/Vol] 10.7 g/dL Low 11.5-15.5 [facility] Comment on above: Order Comment: Speci men Type: BLOOD SPECIMENOrdering Facility: [facility] Address: [address] [place] [address] Performed By: #### 5 8410-2 ####[facility] LABIA [id number] [place] [address] [place] MCH (RBC) [Entitic mass] 28.6 pg Normal 26.0-34.0 [facility] Comment on above: Order Comment: Speci men Type: BLOOD SPECIMENOrdering Facility: [facility] Address: [address] [place] [address] Performed By: #### 5 8410-2 ####[facility] [id number] [address] [place] MCHC (RBC) [Mass/Vol] 30.6 g/dL Normal 30.5-36.0 [facility] Comment on above: Order Comment: Speci men Type: BLOOD SPECIMENOrdering Facility: [facility] Address: [address] [place] [address] Performed By: #### 5 8410-2 ####[facility] [id number] [place] [address] [place] MCV (RBC) [Entitic vol] 93.6 fL Normal 80.0-100.0 [facility] Comment on above: Order Comment: Speci men Type: BLOOD SPECIMENOrdering Facility: [facility] Address: [address] [place] [address] Performed By: #### 5 8410-2 ####[facility]BRATT[facility] [id number] [place] [address] [place] Nucleated RBC (Bld) [#/Vol] 10*3/uL Normal <0.01 [facility] Comment on above: Order Comment: Speci men Type: BLOOD SPECIMENOrdering Facility: [facility] Address: [address] [place] [address] Performed By: #### 5 8410-2 ####[facility] LABCLIA [id number] [address] [address] [place] Platelet mean volume (Bld) [Entitic vol] 10.5 fL Normal 9.0-12.7 [facility] Comment on above: Order Comment: Speci men Type: BLOOD SPECIMENOrdering Facility: [facility] Address: [address] [place] [address] Performed By: #### 5 8410-2 ####[facility] LABCLIA [id number] [place] [address] [place] Platelets (Bld) [#/Vol] 156 10*3/uL Normal 150-400 [facility] Comment on above: Order Comment: Speci men Type: BLOOD SPECIMENOrdering Facility: [facility] Address: [address] [place] [address] Performed By: #### 5 8410-2 ####[facility] LABCLIA [id number] [place] [address] [place] RBC (Bld) [#/Vol] 3.74 10*6/uL Low 3.90-5.20 [facility] Comment on above: Order Comment: Speci men Type: BLOOD SPECIMENOrdering Facility: [facility] Address: [address] [place] [address] Performed By: #### 5 8410-2 ####[facility] LABCLIA [id number] [place] [id number] [place] WBC (Bld) [#/Vol] 4.56 10*3/uL Normal 3.70-11.00 [facility] Comment on above: Order Comment: Speci men Type: BLOOD SPECIMENOrdering Facility: [facility] Address: [address] [place] [id number] Performed By: #### 5 8410-2 ####[facility] LABCLIA [id number] [place] [id number] [place] CNPNon 11-15-2024 CNPN Normal [facility] metabolic 2000 panelon 11-15-2024 Albumin [Mass/Vol] 3.8 g/dL Low 3.9-4.9 [facility] Comment on above: Order Comment: Speci men Type: BLOOD SPECIMENOrdering Facility: [facility] Address: [address] [place] [address] Performed By: #### 2 4323-8 ####[facility] LABCLIA [id number] [place] [address] [place] ALP [Catalytic activity/Vol] 161 U/L High 34-123 [facility] Comment on above: Order Comment: Speci men Type: BLOOD SPECIMENOrdering Facility: [facility] Address: [address] [place], [place] [address] Performed By: #### 2 4323-8 ####[facility] LABCLIA [id number] [place] [address] [place] ALT [Catalytic activity/Vol] 33 U/L Normal 7-38 [facility] Comment on above: Order Comment: Speci men Type: BLOOD SPECIMENOrdering Facility: [facility] Address: [address] [place] [address] Performed By: #### 2 4323-8 ####[facility] LABCLIA [id number] [place] [id number] [place] Anion gap [Moles/Vol] 10 mmol/L Normal 8-15 [facility] Comment on above: Order Comment: Speci men Type: BLOOD SPECIMENOrdering Facility: [facility] Address: [address] [place], [place] [address] Performed By: #### 2 4323-8 ####[facility] LABCLIA [id number] [place] [id number] [place] AST [Catalytic activity/Vol] 29 U/L Normal 13-35 [facility] Comment on above: Order Comment: Speci men Type: BLOOD SPECIMENOrdering Facility: [facility] Address: [address] [place] [address] Performed By: #### 2 4323-8 ####[facility] LABCLIA [id number] [place] [address] [place] Bilirubin [Mass/Vol] 0.3 mg/dL Normal 0.2-1.3 [facility] Comment on above: Order Comment: Speci men Type: BLOOD SPECIMENOrdering Facility: [facility] Address: [address] [place] [address] Performed By: #### 2 4323-8 ####[facility] LABCLIA [id number] [place] [address] [place] Calcium [Mass/Vol] 8.4 mg/dL Low 8.5-10.2 [facility] Comment on above: Order Comment: Speci men Type: BLOOD SPECIMENOrdering Facility: [facility] Address: [address] [place] [address] Performed By: #### 2 4323-8 ####[facility] LABCLIA [id number] [place] [address] [place] Chloride [Moles/Vol] 106 mmol/L Normal 98-107 [facility] Comment on above: Order Comment: Speci men Type: BLOOD SPECIMENOrdering Facility: [facility] Address: [address] [place] [address] Performed By: #### 2 4323-8 ####[facility] LABCLIA [id number] [place] [id number] [place] CO2 [Moles/Vol] 22 mmol/L Normal 22-30 [facility] Comment on above: Order Comment: Speci men Type: BLOOD SPECIMENOrdering Facility: [facility] Address: [address] [place] [address] Performed By: #### 2 4323-8 ####[facility] LABIA [id number] [place] [id number] [place] Creatinine [Mass/Vol] 0.77 mg/dL Normal 0.58-0.96 [facility] Comment on above: Order Comment: Speci men Type: BLOOD SPECIMENOrdering Facility: [facility] Address: [address] [place] [address] Performed By: #### 2 4323-8 ####[facility] LABIA [id number] [address] [place] Creatinine and Glomerular filtration rate.predicted panel (S/P/Bld) 77 mL/min/1.73m??? Normal >=60 [facility] Comment on above: Order Comment: Speci men Type: BLOOD SPECIMENOrdering Facility: [facility] Address: [address] [place] [address] Result Comment: Brandy mated Glomerular Filtration Rate [...] actual GFR. Performed By: #### 2 4323-8 ####[facility] LABIA [id number] [place] [id number] [place] Glucose [Mass/Vol] 120 mg/dL High 74-99 [facility] Comment on above: Order Comment: Speci men Type: BLOOD SPECIMENOrdering Facility: [facility] Address: [address] [place] [address] Result Comment: The [place] Diabetes [employer] (ADA) provides guidance for cutoff [...] Standards of Medical Care in Diabetes 2016, [place] [employer]. Diabetes Care. 2016.39(Suppl 1). Performed By: #### 2 4323-8 ####[facility] LABCLIA [id number] [address] [address] [place] Potassium [Moles/Vol] 4.2 mmol/L Normal 3.7-5.1 [facility] Comment on above: Order Comment: Speci men Type: BLOOD SPECIMENOrdering Facility: [facility] Address: [address] [place] [address] Performed By: #### 2 4323-8 ####[facility] LABIA [id number] [address] [address] [place] Protein [Mass/Vol] 6.4 g/dL Normal 6.3-8.0 [facility] Comment on above: Order Comment: Corinei men Type: BLOOD SPECIMENOrdering Facility: [facility] Address: [address] [place] [address] Performed By: #### 2 4323-8 ####[facility] LABCLIA [id number] [place] [id number] [place] Sodium [Moles/Vol] 138 mmol/L Normal 136-144 [facility] Comment on above: Order Comment: Speci men Type: BLOOD SPECIMENOrdering Facility: [facility] Address: [address] [place] [address] Performed By: #### 2 4323-8 ####[facility] LABCLIA [id number] [address] [address] [place] Urea nitrogen [Mass/Vol] 16 mg/dL Normal 7-21 [facility] Comment on above: Order Comment: Speci men Type: BLOOD SPECIMENOrdering Facility: [facility] Address: [address] [place] [address] Performed By: #### 2 4323-8 ####[facility] LABCLIA [id number] [place] [address] [place] HISTORY PHYSICALon HISTORY PHYSICAL Normal [facility] NURSING PROGon 11-15-2024 NURSING PROG Normal [facility] PT panel Coag (PPP)on 2024 INR Coag (PPP) [Relative time] 1.2 {INR} Normal 0.9-1.3 [facility] Comment on above: Order Comment: Spechakeem gamez Type: BLOOD SPECIMENOrdering Facility: [facility] Address: [address] [place] [address] Result Comment: Brook min K Antagonist (VKA) Therapeutic Range: INR 2 to 3 (Target INR of 2.5)Note: For patients treated with VKA drugs, such as warfarin, the [place] [employer] 2012 Guideline recommends [...] al. Chest 2012, 141:7S-47SNishimura RA, et al. [facility] 2017, 70: 252-289 Performed By: #### 3 4528-0, 30507-0 ####[facility] LABCLIA [id number] [place] [address] [place] PT Coag (PPP) [Time] 12.8 s Normal 9.7-13.0 [facility] Comment on above: Order Comment: Speci men Type: BLOOD SPECIMENOrdering Facility: [facility] Address: [address] [place] [address] Performed By: #### 3 4528-0, 02877-0 ####[facility] LABCLIA [id number] [address] [place] TYPE + SCREENon 11-15-2024 ABO A Normal [facility] Comment on above: Order Comment: Speci men Type: BLOOD SPECIMENOrdering Facility: [facility] Address: [address] [place] [address] Performed By: #### T SCR ####[facility] BLOOD BANKCLIA [id number] [place] [address] [place] Rh Nom (Bld) Positive Normal [facility] Comment on above: Order Comment: Speci men Type: BLOOD SPECIMENOrdering Facility: [facility] Address: [address] [place] [address] Performed By: #### T SCR ####[facility] BLOOD BANKCLIA [id number] [place] [address] [place] TYPE AND SCREEN EXPIRATION 11/18/2024 23:59 Normal [facility] Comment on above: Order Comment: Speci men Type: BLOOD SPECIMENOrdering Facility: [facility] Address: [address] [place] [address] Performed By: #### T SCR ####[facility] BLOOD BANKCLIA [id number] [place] [address] [place] aPTT PPPon 11-15-2024 aPTT Coag (PPP) [Time] 29.8 s Normal 23.0-32.4 [facility] Comment on above: Order Comment: Speci men Type: BLOOD SPECIMENOrdering Facility: [facility] Address: [address] [place] [address] Performed By: #### 3 4528-0, 79086-3 ####[facility] LABCLIA [id number] [address] [place] CNPNon 11-12-2024 CNPN Normal [facility] CNTHERAPYon 11-12-2024 CNTHERAPY OT/PT/Speech Visit ([facility]) ----- LAUREN ALCARAZ ([id number]) 1940 F Date Time Provider Department 11/12/24 3:[address] [facility] Date Time Provider Department Center 11/12/2024 3:30 PM [id number][facility] Reason for Visit: Occupational Therapy [...] 1 - Mental Status Change PERCOCET (OXYCODONE-ACETAMINOPHEN) 08/09/2020 1 - Mental Status Change PROPOXYPHENE 11/07/2008 [...] 1,000 mcg intramuscularly once every month. Vitamin G-58-iaujbsmthjzyio - ammonium lactate (LAC-HYDRIN) 12 % lotion [...] 6 months. Last injection November 2020 [facility] CT ABD/PEL W IVCONon 025 CT ABD/PEL W IVCON Invalid Interpretation Code [facility] Chest PA and Lateralon 11-09 Chest PA and Lateral [facility] Imaging Services [address] [place] [address] Chest PA and Lateral MR#: [id number] Acct: [id number] Name: LAUREN ALCARAZ Rep #: [id number] : 1940 F 84 From: Harjinder Doherty MD PCP: Dr. Chema Perry MD Status: REG CLI Study: Chest PA and Lateral Date of Exam: 11/09/24 Exam# [id number] Ordering Dr: Chema Perry MD EXAM: XR [...] Lateral IMPRESSION: Suggestion of COPD. Reading Location: [facility] CC: Dr. Chema Perry MD Computer Network And Systems Engineer: Signed Normal [facility] CBC panel Auto (Bld)on 11-08 Erythrocyte distribution width (RBC) [Ratio] 14.0 % Normal 11.5-15.0 [facility] Comment on above: Order Comment: Speci men Type: BLOOD SPECIMENOrdering Facility: [facility] Address: [address] [place] [address] Performed By: #### 5 8410-2 ####[facility] [id number] [place] [address] [place] Hematocrit (Bld) [Volume fraction] 33.8 % Low 36.0-46.0 [facility] Comment on above: Order Comment: Speci franco Type: BLOOD SPECIMENOrdering Facility: [facility] Address: [address] [place] [address] Performed By: #### 5 8410-2 ####[facility] [id number] [place] [address] [place] Hemoglobin (Bld) [Mass/Vol] 10.7 g/dL Low 11.5-15.5 [facility] Comment on above: Order Comment: Speci men Type: BLOOD SPECIMENOrdering Facility: [facility] Address: [address] [place] [address] Performed By: #### 5 8410-2 ####[facility] [id number] [place] [address] [place] MCH (RBC) [Entitic mass] 29.6 pg Normal 26.0-34.0 [facility] Comment on above: Order Comment: Speci men Type: BLOOD SPECIMENOrdering Facility: [facility] Address: [address] [place] [address] Performed By: #### 5 8410-2 ####[facility] [id number] [place] [address] [place] MCHC (RBC) [Mass/Vol] 31.7 g/dL Normal 30.5-36.0 [facility] Comment on above: Order Comment: Speci men Type: BLOOD SPECIMENOrdering Facility: [facility] Address: [address] [place] [address] Performed By: #### 5 8410-2 ####[facility] [id number] [place] [address] [place] MCV (RBC) [Entitic vol] 93.6 fL Normal 80.0-100.0 [facility] Comment on above: Order Comment: Speci men Type: BLOOD SPECIMENOrdering Facility: [facility] Address: [address] [place] [address] Performed By: #### 5 8410-2 ####[facility] [id number] [place] [address] [place] Nucleated RBC (Bld) [#/Vol] 10*3/uL Normal <0.01 [facility] Comment on above: Order Comment: Speci men Type: BLOOD SPECIMENOrdering Facility: [facility] Address: [address] [place] [address] Performed By: #### 5 8410-2 ####[facility] [id number] [place] [address] [place] Platelet mean volume (Bld) [Entitic vol] 10.2 fL Normal 9.0-12.7 [facility] Comment on above: Order Comment: Speci men Type: BLOOD SPECIMENOrdering Facility: [facility] Address: [address] [place] [address] Performed By: #### 5 8410-2 ####[facility] RAFITA ISANCLIStacy [id number] [place] [address] [facility] [place] Platelets (Bld) [#/Vol] 188 10*3/uL Normal 150-400 [facility] Comment on above: Order Comment: Speci men Type: BLOOD SPECIMENOrdering Facility: [facility] Address: [address] [place] [address] Performed By: #### 5 8410-2 ####[facility] ISANCLIA [id number] [place] [address] [place] RBC (Bld) [#/Vol] 3.61 10*6/uL Low 3.90-5.20 [facility] Comment on above: Order Comment: Speci men Type: BLOOD SPECIMENOrdering Facility: [facility] Address: [address] [place] [address] Performed By: #### 5 8410-2 ####[facility] HERMINIODAYVILLENCLIA [id number] [place] [address] [place] WBC (Bld) [#/Vol] 4.89 10*3/uL Normal 3.70-11.00 [facility] Comment on above: Order Comment: Speci men Type: BLOOD SPECIMENOrdering Facility: [facility] Address: [address] [place] [address] Performed By: #### 5 8410-2 ####[facility] HERMINIODAYVILLENCLIA [id number] [place] [address] [facility] CREATININE BLDon 11-08-2024 Creatinine [Mass/Vol] 0.79 mg/dL Normal 0.58-0.96 [facility] Comment on above: Order Comment: Speci men Type: BLOOD SPECIMENOrdering Facility: [facility] Address: [address] [place] [address] Performed By: #### C RET1 ####[facility] [id number] [place] [address] [place] Creatinine and Glomerular filtration rate.predicted panel (S/P/Bld) 75 mL/min/1.73m??? Normal >=60 [facility] Comment on above: Order Comment: Speci men Type: BLOOD SPECIMENOrdering Facility: [facility] Address: [address] [place] [place] [address] Result Comment: Brandy mated Glomerular Filtration Rate [...] actual GFR. Performed By: #### C RET1 ####[facility] [id number] [address] [place] CNTHERAPYon 11-05-2024 CNTHERAPY OT/PT/Speech Visit ([facility]) ----- LAUREN ALCARAZ ([id number]) 1940 F Date Time Provider Department 11/05/24 2:[address] [facility] Provider Department Center 11/05/2024 2:00 PM [id number], DIANDRA [facility] Reason for Visit: Occupational [...] 1 - Mental Status Change PERCOCET (OXYCODONE-ACETAMINOPHEN) 08/09/2020 1 - Mental Status Change PROPOXYPHENE 11/07/2008 [...] 1,000 mcg intramuscularly once every month. Vitamin T-27-ffuklqcdtbvmfa - ammonium lactate (LAC-HYDRIN) 12 % lotion [...] Street OTR/L on 11/05/2024 2:13 PM Normal [facility] CNOVon 11-03-2024 CNOV Normal [facility] VISUAL FIELD 24-2 OU (BOTH E YES)on 11-01-2024 [facility] Radiology Study observation (narrative) [facility] [id number] 10-29-2024 [id number] HNO ID: [id number] Author: [address] ST[address] OTR/L Service: ? Author Type: Occupational Therapist Type: [id number] Filed: 10/29/2024 12:32 Note Text: [facility] Rehabilitation and Sports Therapy Occupational Therapy Plan of Care Certification Patient Name: Lauren Alcaraz : 1940 CC #: [id number] Date: 10/29/2024 To: Laisha Lizarraga, APR* From [...] 10/29/24 Patient will complete HEP at Modified [place] level. Patient will increase bilateral wood fence erector and pinches by 5# to improve function [...] Planned: 8 Planned Treatment Interventions: Therapeutic exercise (21000), Neuromuscular re-education (84900), Self-fdc management (80917), Patient/Family/Caregiver Education PLAN FOR NEXT VISIT:assess different writing utensils, proximal stability? button hook, gentle wood fence erector strengthening Patient demonstrates good understanding of plan of care and treatment. The above goals and plan of care were discussed and agreed upon by patient/family. For further details regarding this patient refer to the Occupational Therapy electronically documented visit dated 10/29/2024. Provider Attestation I have reviewed the treatment plan for Lauren Alcaraz, CC# [id number] for the period of 10/29/24 -- 12/28/24, established on 10/29/2024. Signature certifies the need for therapy services. [facility] CNOVon 10-29-2024 CNOV [facility] Elias 10-29-2024 CNPN Telephone (GENLUH) ----- LAUREN ALCARAZ ([id number]) 1940 F Date Time Provider Department 10/29/24 ANILA DE PAZ During your visit today, we recorded the following information about you: Sandie Messina 10/29/2024 2:26 PM Signed Incoming call from [facility] states the compound that was sent [...] 1 - Mental Status Change PERCOCET (OXYCODONE-ACETAMINOPHEN) 08/09/2020 1 - Mental Status Change PROPOXYPHENE 11/07/2008 [...] 1,000 mcg intramuscularly once every month. Vitamin T-69-stchxzyfieodtz - ammonium lactate (LAC-HYDRIN) 12 % lotion [...] 12/06/2020 Weakness [R53.1] 04/13/2021 [facility] [G35] 07/19/2024 09/14/2024 Coronary artery disease due to lipid rich plaqu*03/19/2011 Bilateral leg edema [R60.0] 02/20/2019 Bronchiectasis (HCC) [J47.9] 03/18/2024 Gastroesophageal reflux disease [K21.9] 07/19/2024 Essential hypertension [I10] 05/01/2017 History of DVT (deep vein thrombosis) [Z86.718] 06/05/2013 Hyperlipidemia [E78.5] 09/03/2012 History of malignant neop (more content not included)... [facility] CNTHERAPYon 10-29-2024 CNTHERAPY OT/PT/Speech Visit ([facility]) ----- LAUREN ALCARAZ ([id number]) 1940 F Date Time Provider Department 10/29/24 10:[address] [facility] Date Time Provider Department Center 10/29/2024 10:45 AM [id number], DIANDRA [facility] Reason for Visit: OT EVAL [748] Primary [...] 1 - Mental Status Change PERCOCET (OXYCODONE-ACETAMINOPHEN) 08/09/2020 1 - Mental Status Change PROPOXYPHENE 11/07/2008 [...] 1,000 mcg intramuscularly once every month. Vitamin D-04-hkdvzbiiualzia - ammonium lactate (LAC-HYDRIN) 12 % lotion [...] 6 months. Last injection November 2020 [facility] Pulmonary Visit Reporton Pulmonary Visit Report [facility] Pulmonary Medicine of [address] [place], [place] [id number] OFFICE VISIT Date of Service: 10/22/24 MR#: [id number] Acct: [id number] Name: LAUREN ALCARAZ Rep #: [id number] : 1940 Provider: BURAK Vincent Age/Sex: 84/F Location: [facility] [place].PMW Status: Signed Assessment and Plan Assessment and Plan (1) Bronchiectasis: Status: Chronic Qualifiers: Bronchiectasis type: uncomplicated Qualified Code(s): J47.9 - Bronchiectasis, uncomplicated Comment: Lingular subsegment Plan: Stable, no signs of exacerbation of bronchiectasis today. No change in maintenance medications, she is only requiring rqob-rlz-uhasntf antihistamine. No additional testing at this time. [...] air Intake Visit Reasons: 6 M FU Milking Machine Technician Required: No DME Vendor: [employer]- [employer] [...] Other Medications ???Medication ???Instructions ???Recorded ???Confirmed ???Type L.acidophil-L.casei-B.bif id-B.longum-FOS 1 cap PO DAILY Supplement 09/02/21 10/22/24 [...] denosumab 60 mg/mL subcutaneous 60 mg subcut [id number] #1 mL 10/22/24 Rx syringe (Prolia) BD [...] mL 4 (more content not included)... Normal [facility] Breast imaging reportOrdered By: Sam Mac on 10-18-2024 Study report [facility] [place] Imaging Services [address] [place] [address] SCRN MAMM (CAD)W/EVERETT BILAT MR#: [id number] Acct: [id number] Name: LAUREN ALCARAZ Rep #: [id number] : 1940 F 84 From: Cody Mac MD PCP: Dr. Chema Perry MD Status: [facility] Study:SCRN MAMM (CAD)W/EVERETT BILAT Date of Exa m: 10/18/24 Exam# [id number] Ordering Dr: Chema Perry MD PROCEDURE: SCRN [...] of the results by letter. Reading Location: [id number] CC: Dr. Chema Perry MD ~ Computer Network And Systems Engineer: Signed [facility] SCRN MAMM (CAD)W/EVERETT BILATo n 10-18-2024 SCRN MAMM (CAD)W/EVERETT BILAT [facility] [place] Imaging Services [address] [place] [id number] SCRN MAMM (CAD)W/EVERETT BILAT MR#: [id number] Acct: [id number] Name: LAUREN ALCARAZ Rep #: [id number] : 1940 F 84 From: Sam stafford MD PCP: Dr. Chema Perry MD Status: [facility] Study: SCRN MAMM (CAD)W/EVERETT BILAT Date of Exam: 11/09 Exam# [id number] Ordering Dr: Chema Perry MD PROCEDURE: SCRN [...] of the results by letter. Reading Location: [id number] CC: Dr. Chema Perry MD Computer Network And Systems Engineer: Signed Normal [facility] MR/BMS.IMBon 10-14-2024 MR/BMS.IMB [facility] [address] [facility] [place] [address] OFFICE VISIT Date of Service: 10/14/24 MR#: [id number] Acct: [id number] Name: LAUREN ALCARAZ Rep #: [id number] : 1940 Provider: Dr. Chema williamson MD Age/Sex: 84/F Location: [facility] [place].[facility] Status: Signed Intake Vital Signs 09/18/24 08:37 10/14/24 13:18 Height 4 ft 7 in 4 ft 7 in Weight: 105 lb 4 oz BMI 24.4 BP 113/79 Blood Pressure Location Lt brachial Position Sitting Respiration 16 Pulse 78 Pulse Source Monitor Temp 98.4 F Temp Source Temporal Pulse Oximetry (%) 90 Oxygen Delivery Method room air Intake Visit Reasons: F/U [facility] Discharge Chief Complaint: F/U senior care discharge Milking Machine Technician Required: No Accompanied by: Self Is patient [...] Other Medications ???Medication ???Instructions ???Recorded ???Confirmed ???Type L.acidophil-L.casei-B.bif id-B.longum-FOS 1 cap PO DAILY Supplement 09/02/21 10/14/24 [...] denosumab 60 mg/mL subcutaneous 60 mg subcut [id number] #1 mL 10/14/24 Rx syringe (Prolia) BD [...] in the past year?: No [facility] Medical History Open wound of right lower extremity Contusion of right foot Kyphoscoliosis deform (more content not included)... Normal [facility] CNOVon 10-13-2024 CNOV Normal [facility] CNOVon 10-08-2024 CNOV Normal [facility] CASE MANAGEMon 09-23-2024 CASE MANAGEM Normal [facility] CASE MANAGEM Normal [facility] CASE MANAGEM Normal [facility] CBC panel Auto (Bld)on 09-23 Erythrocyte distribution width (RBC) [Ratio] 13.6 % Normal 11.5-15.0 [facility] Comment on above: Order Comment: Speci men Type: BLOOD SPECIMENOrdering Facility: [facility] Address: [address] [place] [address] Performed By: #### 5 8410-2 ####[facility] LABIA [id number] [place] [address] [place] Hematocrit (Bld) [Volume fraction] 33.2 % Low 36.0-46.0 [facility] Comment on above: Order Comment: Speci men Type: BLOOD SPECIMENOrdering Facility: [facility] Address: [address] [place] [address] Performed By: #### 5 8410-2 ####[facility] LABCLIA [id number] [place] [address] [place] Hemoglobin (Bld) [Mass/Vol] 10.7 g/dL Low 11.5-15.5 [facility] Comment on above: Order Comment: Speci men Type: BLOOD SPECIMENOrdering Facility: [facility] Address: [address] [place] [address] Performed By: #### 5 8410-2 ####[facility] LABCLIA [id number] [place] [address] [place] MCH (RBC) [Entitic mass] 29.2 pg Normal 26.0-34.0 [facility] Comment on above: Order Comment: Speci men Type: BLOOD SPECIMENOrdering Facility: [facility] Address: [address] [place] [address] Performed By: #### 5 8410-2 ####[facility] LABIA [id number] [place] [address] [place] MCHC (RBC) [Mass/Vol] 32.2 g/dL Normal 30.5-36.0 [facility] Comment on above: Order Comment: Speci men Type: BLOOD SPECIMENOrdering Facility: [facility] Address: [address] [place] [address] Performed By: #### 5 8410-2 ####[facility] LABCLIA [id number] [place] [address] [place] MCV (RBC) [Entitic vol] 90.5 fL Normal 80.0-100.0 [facility] Comment on above: Order Comment: Speci men Type: BLOOD SPECIMENOrdering Facility: [facility] Address: [address] [place] [address] Performed By: #### 5 8410-2 ####[facility] LABIA [id number] [place] [address] [place] Nucleated RBC (Bld) [#/Vol] 10*3/uL Normal <0.01 [facility] Comment on above: Order Comment: Speci men Type: BLOOD SPECIMENOrdering Facility: [facility] Address: [address] [place] [address] Performed By: #### 5 8410-2 ####[facility] LABCLIA [id number] [place] [address] [place] Platelet mean volume (Bld) [Entitic vol] 10.8 fL Normal 9.0-12.7 [facility] Comment on above: Order Comment: Speci men Type: BLOOD SPECIMENOrdering Facility: [facility] Address: [address] [place] [address] Performed By: #### 5 8410-2 ####[facility] LABCLIA [id number] [place] [address] [place] Platelets (Bld) [#/Vol] 150 10*3/uL Normal 150-400 [facility] Comment on above: Order Comment: Speci men Type: BLOOD SPECIMENOrdering Facility: [facility] Address: [address] [place] [address] Performed By: #### 5 8410-2 ####[facility] LABIA [id number] [place] [address] [place] RBC (Bld) [#/Vol] 3.67 10*6/uL Low 3.90-5.20 [facility] Comment on above: Order Comment: Speci men Type: BLOOD SPECIMENOrdering Facility: [facility] Address: [address] [place] [address] Performed By: #### 5 8410-2 ####[facility] LABIA [id number] [place] [address] [place] WBC (Bld) [#/Vol] 5.57 10*3/uL Normal 3.70-11.00 [facility] Comment on above: Order Comment: Speci men Type: BLOOD SPECIMENOrdering Facility: [facility] Address: [address] [place] [address] Performed By: #### 5 8410-2 ####[facility] LABIA [id number] [place] [address] [place] CNDSon 09-23-2024 CNDS Normal [facility] Comprehensive metabolic 2000 panelon 09-23-2024 Albumin [Mass/Vol] 3.3 g/dL Low 3.9-4.9 [facility] Comment on above: Order Comment: Speci men Type: BLOOD SPECIMENOrdering Facility: [facility] Address: [address] [place] [address] Performed By: #### 1 9123-9, 69826-8, 277- ####[facility] LABCLIA [id number] [place] [address] [place] ALP [Catalytic activity/Vol] 71 U/L Normal 34-123 [facility] Comment on above: Order Comment: Speci men Type: BLOOD SPECIMENOrdering Facility: [facility] Address: [address] [place] [address] Performed By: #### 1 9123-9, 59652-3, 277- ####[facility] LABCLIA [id number] [place] [address] [place] ALT [Catalytic activity/Vol] 25 U/L Normal 7-38 [facility] Comment on above: Order Comment: Speci men Type: BLOOD SPECIMENOrdering Facility: [facility] Address: [address] [place] [address] Performed By: #### 1 9123-9, 74595-8, 277- ####[facility] LABIA [id number] [place] [address] [place] Anion gap [Moles/Vol] 8 mmol/L Normal 8-15 [facility] Comment on above: Order Comment: Speci men Type: BLOOD SPECIMENOrdering Facility: [facility] Address: [address] [place] [address] Performed By: #### 1 9123-9, 45435-9, 277- ####[facility] LABIA [id number] [place] [address] [place] AST [Catalytic activity/Vol] 30 U/L Normal 13-35 [facility] Comment on above: Order Comment: Speci men Type: BLOOD SPECIMENOrdering Facility: [facility] Address: [address] [place] [address] Performed By: #### 1 9123-9, 17501-7, 27702-15 ####[facility] LABCLIA [id number] [address] [address] [place] Bilirubin [Mass/Vol] 0.5 mg/dL Normal 0.2-1.3 [facility] Comment on above: Order Comment: Speci men Type: BLOOD SPECIMENOrdering Facility: [facility] Address: [address] [place] [address] Performed By: #### 1 9123-9, 10726-2, 27702-15 ####[facility] LABCLIA [id number] [place] [address] [place] Calcium [Mass/Vol] 8.1 mg/dL Low 8.5-10.2 [facility] Comment on above: Order Comment: Speci men Type: BLOOD SPECIMENOrdering Facility: [facility] Address: [address] [place] [address] Performed By: #### 1 9123-9, 81044-4, 27702-15 ####[facility] LABCLIA [id number] [place] [address] [place] Chloride [Moles/Vol] 102 mmol/L Normal 98-107 [facility] Comment on above: Order Comment: Speci men Type: BLOOD SPECIMENOrdering Facility: [facility] Address: [address] [place] [address] Performed By: #### 1 9123-9, 23152-7, 2776-08 ####[facility] LABCLIA [id number] [place] [address] [place] CO2 [Moles/Vol] 27 mmol/L Normal 22-30 [facility] Comment on above: Order Comment: Speci men Type: BLOOD SPECIMENOrdering Facility: [facility] Address: [address] [place] [address] Performed By: #### 1 9123-9, , 2776-08 ####[facility] LABIA [id number] [place] [id number] [place] Creatinine [Mass/Vol] 0.81 mg/dL Normal 0.58-0.96 [facility] Comment on above: Order Comment: Ramirez gamez Type: BLOOD SPECIMENOrdering Facility: [facility] Address: [address] [place] [address] Performed By: #### 1 9123-9, , 2776-08 ####[facility] LABIA [id number] [place] [address] [place] Creatinine and Glomerular filtration rate.predicted panel (S/P/Bld) 73 mL/min/1.73m??? Normal >=60 [facility] Comment on above: Order Comment: Ramirez gamez Type: BLOOD SPECIMENOrdering Facility: [facility] Address: [address] [place] [address] Result Comment: Brandy mated Glomerular Filtration Rate [...] Performed By: #### 1 9123-9, , 2776-08 ####[facility] LABIA [id number] [place] [id number] [place] Glucose [Mass/Vol] 93 mg/dL Normal 74-99 [facility] Comment on above: Order Comment: Ramirez gamez Type: BLOOD SPECIMENOrdering Facility: [facility] Address: [address] [place] [address] Result Comment: The [place] [employer] (ADA) provides guidance for cutoff [...] Standards of Medical Care in Diabetes 2016, [place] [employer]. Diabetes Care. 2016.39(Suppl 1). Performed By: #### 1 9123-9, 20757-0, 2776-08 ####[facility] LABCLIA [id number] [place] [address] [place] Potassium [Moles/Vol] 3.8 mmol/L Normal 3.7-5.1 [facility] Comment on above: Order Comment: Speci men Type: BLOOD SPECIMENOrdering Facility: [facility] Address: [address] [place] [address] Performed By: #### 1 9123-9, , 2776-08 ####[facility] LABCLIA [id number] [place] [address] [place] Protein [Mass/Vol] 5.7 g/dL Low 6.3-8.0 [facility] Comment on above: Order Comment: Speci men Type: BLOOD SPECIMENOrdering Facility: [facility] Address: [address] [place] [address] Performed By: #### 1 9123-9, , 2776-08 ####[facility] LABCLIA [id number] [place] [address] [place] Sodium [Moles/Vol] 137 mmol/L Normal 136-144 [facility] Comment on above: Order Comment: Speci men Type: BLOOD SPECIMENOrdering Facility: [facility] Address: [address] [place] [address] Performed By: #### 1 9123-9, 91426-9, 2776-08 ####[facility] LABCLIA [id number] [place] [id number] [place] Urea nitrogen [Mass/Vol] 12 mg/dL Normal 7-21 [facility] Comment on above: Order Comment: Speci men Type: BLOOD SPECIMENOrdering Facility: [facility] Address: [address] [place] [address] Performed By: #### 1 9123-9, 30148-9, 2777-1 ####[facility] LABIA [id number] [place] [id number] [place] Magnesium SerPl-ncon 09-23 Magnesium [Mass/Vol] 1.8 mg/dL Normal 1.7-2.3 [facility] Comment on above: Order Comment: Speci men Type: BLOOD SPECIMENOrdering Facility: [facility] Address: [address] [place] [address] Performed By: #### 1 9123-9, 53195-0, 2777-1 ####[facility] LABIA [id number] [place] [id number] [place] Phosphate SerPl-mCncon 09-23 Phosphate [Mass/Vol] 1.7 mg/dL Low 2.7-4.8 [facility] Comment on above: Order Comment: Speci men Type: BLOOD SPECIMENOrdering Facility: [facility] Address: [address] [place] [address] Performed By: #### 1 9123-9, 00890-8, 2777-1 ####[facility] LABIA [id number] [place] [id number] [place] THERAPY NTon 09-23-2024 THERAPY NT Normal [facility] ANES POSTPROC EVALon 025 ANES POSTPROC EVAL Normal [facility] ANES POSTPROC EVAL Normal [facility] CASE MANAGEMon 09-22-2024 CASE MANAGEM Normal [facility] CBC panel Auto (Bld)on 09-22 Erythrocyte distribution width (RBC) [Ratio] 13.7 % Normal 11.5-15.0 [facility] Comment on above: Order Comment: Speci men Type: BLOOD SPECIMENOrdering Facility: [facility] Address: [address] [place] [address] Performed By: #### 5 8410-2 ####[facility] LABCLIA [id number] [place] [address] [place] Hematocrit (Bld) [Volume fraction] 33.8 % Low 36.0-46.0 [facility] Comment on above: Order Comment: Speci men Type: BLOOD SPECIMENOrdering Facility: [facility] Address: [address] [place] [address] Performed By: #### 5 8410-2 ####[facility] LABCLIA [id number] [place] [address] [place] Hemoglobin (Bld) [Mass/Vol] 10.8 g/dL Low 11.5-15.5 [facility] Comment on above: Order Comment: Speci men Type: BLOOD SPECIMENOrdering Facility: [facility] Address: [address] [place] [address] Performed By: #### 5 8410-2 ####[facility] LABIA [id number] [place] [address] [place] MCH (RBC) [Entitic mass] 29.1 pg Normal 26.0-34.0 [facility] Comment on above: Order Comment: Speci men Type: BLOOD SPECIMENOrdering Facility: [facility] Address: [address] [place] [address] Performed By: #### 5 8410-2 ####[facility] LABIA [id number] [place] [address] [place] MCHC (RBC) [Mass/Vol] 32.0 g/dL Normal 30.5-36.0 [facility] Comment on above: Order Comment: Speci men Type: BLOOD SPECIMENOrdering Facility: [facility] Address: [address] [place] [address] Performed By: #### 5 8410-2 ####[facility] LABCLIA [id number] [place] [address] [place] MCV (RBC) [Entitic vol] 91.1 fL Normal 80.0-100.0 [facility] Comment on above: Order Comment: Speci men Type: BLOOD SPECIMENOrdering Facility: [facility] Address: [address] [place] [address] Performed By: #### 5 8410-2 ####[facility] LABCLIA [id number] [place] [address] [place] Nucleated RBC (Bld) [#/Vol] 10*3/uL Normal <0.01 [facility] Comment on above: Order Comment: Speci men Type: BLOOD SPECIMENOrdering Facility: [facility] Address: [address] [place] [address] Performed By: #### 5 8410-2 ####[facility] LABCLIA [id number] [place] [address] [place] Platelet mean volume (Bld) [Entitic vol] 10.6 fL Normal 9.0-12.7 [facility] Comment on above: Order Comment: Speci men Type: BLOOD SPECIMENOrdering Facility: [facility] Address: [address] [place] [address] Performed By: #### 5 8410-2 ####[facility] LABCLIA [id number] [place] [address] [place] Platelets (Bld) [#/Vol] 147 10*3/uL Low 150-400 [facility] Comment on above: Order Comment: Speci men Type: BLOOD SPECIMENOrdering Facility: [facility] Address: [address] [place] [address] Performed By: #### 5 8410-2 ####[facility] LABCLIA [id number] [address] [address] [place] RBC (Bld) [#/Vol] 3.71 10*6/uL Low 3.90-5.20 [facility] Comment on above: Order Comment: Speci men Type: BLOOD SPECIMENOrdering Facility: [facility] Address: [address] [place] [address] Performed By: #### 5 8410-2 ####[facility] LABIA [id number] [place] [address] [place] WBC (Bld) [#/Vol] 4.72 10*3/uL Normal 3.70-11.00 [facility] Comment on above: Order Comment: Speci men Type: BLOOD SPECIMENOrdering Facility: [facility] Address: [address] [place] [address] Performed By: #### 5 8410-2 ####[facility] [id number] [place] [address] [place] Comprehensive metabolic 2000 panelon 09-22-2024 Albumin [Mass/Vol] 3.2 g/dL Low 3.9-4.9 [facility] Comment on above: Order Comment: Speci men Type: BLOOD SPECIMENOrdering Facility: [facility] Address: [address] [place] [address] Performed By: #### 1 9123-9, 65708-0, 2777-1 ####[facility] LABIA [id number] [place] [address] [place] ALP [Catalytic activity/Vol] 74 U/L Normal 34-123 [facility] Comment on above: Order Comment: Speci men Type: BLOOD SPECIMENOrdering Facility: [facility] Address: [address] [place] [address] Performed By: #### 1 9123-9, 77225-0, 2777-1 ####[facility] LABCLIA [id number] [place] [address] [place] ALT [Catalytic activity/Vol] 30 U/L Normal 7-38 [facility] Comment on above: Order Comment: Speci men Type: BLOOD SPECIMENOrdering Facility: [facility] Address: [address] [place] [address] Performed By: #### 1 9123-9, 33208-3, 2777-1 ####[facility] LABCLIA [id number] [place] [address] [place] Anion gap [Moles/Vol] 9 mmol/L Normal 8-15 [facility] Comment on above: Order Comment: Speci men Type: BLOOD SPECIMENOrdering Facility: [facility] Address: [address] [place] [address] Performed By: #### 1 9123-9, 52887-5, 2777-1 ####[facility] LABCLIA [id number] [place] [address] [place] AST [Catalytic activity/Vol] 45 U/L High 13-35 [facility] Comment on above: Order Comment: Speci men Type: BLOOD SPECIMENOrdering Facility: [facility] Address: [address] [place] [address] Performed By: #### 1 9123-9, 36011-1, 2777-1 ####[facility] LABCLIA [id number] [place] [address] [place] Bilirubin [Mass/Vol] 1.0 mg/dL Normal 0.2-1.3 [facility] Comment on above: Order Comment: Speci men Type: BLOOD SPECIMENOrdering Facility: [facility] Address: [address] [place] [address] Performed By: #### 1 9123-9, 99395-6, 2777-1 ####[facility] LABCLIA [id number] [place] [address] [place] Calcium [Mass/Vol] 8.0 mg/dL Low 8.5-10.2 [facility] Comment on above: Order Comment: Speci men Type: BLOOD SPECIMENOrdering Facility: [facility] Address: [address] [place] [address] Performed By: #### 1 9123-9, 81897-6, 277- ####[facility] LABCLIA [id number] [place] [address] [place] Chloride [Moles/Vol] 102 mmol/L Normal 98-107 [facility] Comment on above: Order Comment: Speci men Type: BLOOD SPECIMENOrdering Facility: [facility] Address: [address] [place] [address] Performed By: #### 1 9123-9, 57231-5, 27702-15 ####[facility] LABCLIA [id number] [place] [address] [place] CO2 [Moles/Vol] 25 mmol/L Normal 22-30 [facility] Comment on above: Order Comment: Speci men Type: BLOOD SPECIMENOrdering Facility: [facility] Address: [address] [place] [address] Performed By: #### 1 9123-9, 95510-4, 2776-08 ####[facility] LABCLIA [id number] [place] [address] [place] Creatinine [Mass/Vol] 0.82 mg/dL Normal 0.58-0.96 [facility] Comment on above: Order Comment: Speci men Type: BLOOD SPECIMENOrdering Facility: [facility] Address: [address] [place] [address] Performed By: #### 1 9123-9, 03131-6, 277- ####[facility] LABCLIA [id number] [place] [id number] [place] Creatinine and Glomerular filtration rate.predicted panel (S/P/Bld) 72 mL/min/1.73m??? Normal >=60 [facility] Comment on above: Order Comment: Ramirez gamez Type: BLOOD SPECIMENOrdering Facility: [facility] Address: [address] [place] [address] Result Comment: Brandy mated Glomerular Filtration Rate [...] actual GFR. Performed By: #### 1 9123-9, 24884-2, 2777- ####[facility] LABIA [id number] [place] [address] [place] Glucose [Mass/Vol] 75 mg/dL Normal 74-99 [facility] Comment on above: Order Comment: Ramirez gamez Type: BLOOD SPECIMENOrdering Facility: [facility] Address: [address] [place] [address] Result Comment: The [place] Diabetes Association (ADA) provides guidance for cutoff [...] Standards of Medical Care in Diabetes 2016, [place] [employer]. Diabetes Care. 2016.39(Suppl 1). Performed By: #### 1 9123-9, 71535-9, 2777- ####[facility] LABIA [id number] [place] [address] [place] Potassium [Moles/Vol] 4.0 mmol/L Normal 3.7-5.1 [facility] Comment on above: Order Comment: Speci men Type: BLOOD SPECIMENOrdering Facility: [facility] Address: [address] [place] [address] Performed By: #### 1 9123-9, 58337-6, 2777- ####[facility] LABCLIA [id number] [address] [address] [place] Protein [Mass/Vol] 5.5 g/dL Low 6.3-8.0 [facility] Comment on above: Order Comment: Speci men Type: BLOOD SPECIMENOrdering Facility: [facility] Address: [address] [place] [address] Performed By: #### 1 9123-9, 18845-7, 2777- ####[facility] LABCLIA [id number] [place] [address] [place] Sodium [Moles/Vol] 136 mmol/L Normal 136-144 [facility] Comment on above: Order Comment: Speci men Type: BLOOD SPECIMENOrdering Facility: [facility] Address: [address] [place] [address] Performed By: #### 1 9123-9, 75688-4, 2777- ####[facility] LABIA [id number] [place] [address] [place] Urea nitrogen [Mass/Vol] 11 mg/dL Normal 7-21 [facility] Comment on above: Order Comment: Speci men Type: BLOOD SPECIMENOrdering Facility: [facility] Address: [address] [place] [address] Performed By: #### 1 9123-9, 64141-4, 2777-1 ####[facility] LABIA [id number] [place] [id number] [place] Magnesium SerPl-mCncon 09-22 Magnesium [Mass/Vol] 2.1 mg/dL Normal 1.7-2.3 [facility] Comment on above: Order Comment: Speci men Type: BLOOD SPECIMENOrdering Facility: [facility] Address: [address] [place], [place] [address] Performed By: #### 1 9123-9, 37373-6, 2777-1 ####[facility] LABCLIA [id number] [address] [address] [place] PT EDon 09-22-2024 PT ED Normal [facility] Phosphate SerPl-mCncon 09-22 Phosphate [Mass/Vol] 1.7 mg/dL Low 2.7-4.8 [facility] Comment on above: Order Comment: Speci men Type: BLOOD SPECIMENOrdering Facility: [facility] Address: [address] [place] [address] Performed By: #### 1 9123-9, 81703-7, 277-1 ####[facility] LABCLIA [id number] [place] [address] [place] THERAPY NTon 09-22-2024 THERAPY NT Normal [facility] Basic metabolic 2000 panelon 09-21-2024 Anion gap [Moles/Vol] 12 mmol/L Normal 8-15 [facility] Comment on above: Order Comment: Speci men Type: BLOOD SPECIMENOrdering Facility: [facility] Address: [address] [place] [address] Performed By: #### 1 9123-9, 2777-1, 28038-1, 04039-2 ####[facility] LABCLIA [id number] [place] [id number] [place] Calcium [Mass/Vol] 8.0 mg/dL Low 8.5-10.2 [facility] Comment on above: Order Comment: Speci men Type: BLOOD SPECIMENOrdering Facility: [facility] Address: [address] [place], [place] [address] Performed By: #### 1 9123-9, 2777-1, 65650-2, 27942-5 ####[facility] LABCLIA [id number] [place] [address] [place] Chloride [Moles/Vol] 102 mmol/L Normal 98-107 [facility] Comment on above: Order Comment: Speci men Type: BLOOD SPECIMENOrdering Facility: [facility] Address: [address] [place] [address] Performed By: #### 1 9123-9, 2777-1, 33616-2, 93007-5 ####[facility] LABCLIA [id number] [place] [address] [place] CO2 [Moles/Vol] 24 mmol/L Normal 22-30 [facility] Comment on above: Order Comment: Speci men Type: BLOOD SPECIMENOrdering Facility: [facility] Address: [address] [place] [address] Performed By: #### 1 9123-9, 2777-1, 65903-2, 14895-3 ####[facility] LABCLIA [id number] [place] [address] [place] Creatinine [Mass/Vol] 0.78 mg/dL Normal 0.58-0.96 [facility] Comment on above: Order Comment: Speci men Type: BLOOD SPECIMENOrdering Facility: [facility] Address: [address] [place] [address] Performed By: #### 1 9123-9, 2777-1, 62379-0, 99638-7 ####[facility] LABCLIA [id number] [place] [address] [place] Creatinine and Glomerular filtration rate.predicted panel (S/P/Bld) 76 mL/min/1.73m??? Normal >=60 [facility] Comment on above: Order Comment: Speci men Type: BLOOD SPECIMENOrdering Facility: [facility] Address: [address] [place] [address] Result Comment: Brandy mated Glomerular Filtration Rate [...] GFR. Performed By: #### 1 9123-9, 2777-1, 40912-6, 71873-7 ####[facility] LABCLIA [id number] [place] [address] [place] Glucose [Mass/Vol] 64 mg/dL Low 74-99 [facility] Comment on above: Order Comment: Ramirez gamez Type: BLOOD SPECIMENOrdering Facility: [facility] Address: [address] [place] [address] Result Comment: The [place] Diabetes Association (ADA) provides guidance for cutoff [...] Standards of Medical Care in Diabetes 2016, [place] [employer]. Diabetes Care. 2016.39(Suppl 1). Performed By: #### 1 9123-9, 2777-1, 24958-4, 07646-7 ####[facility] LABCLIA [id number] [place] [address] [place] Potassium [Moles/Vol] 4.2 mmol/L Normal 3.7-5.1 [facility] Comment on above: Order Comment: Ramirez gamez Type: BLOOD SPECIMENOrdering Facility: [facility] Address: [address] [place] [address] Performed By: #### 1 9123-9, 2777-1, 95828-2, 51173-2 ####[facility] LABCLIA [id number] [place] [address] [place] Sodium [Moles/Vol] 138 mmol/L Normal 136-144 [facility] Comment on above: Order Comment: Speci men Type: BLOOD SPECIMENOrdering Facility: [facility] Address: [address] [place] [address] Performed By: #### 1 9123-9, 2777-1, 17825-8, 15217-0 ####[facility] LABCLIA [id number] [place] [address] [place] Urea nitrogen [Mass/Vol] 15 mg/dL Normal 7-21 [facility] Comment on above: Order Comment: Speci men Type: BLOOD SPECIMENOrdering Facility: [facility] Address: [address] [place] [address] Performed By: #### 1 9123-9, 2777-1, 98150-5, 11906-7 ####[facility] LABCLIA [id number] [place] [address] [place] CASE MANAGEMon 09-21-2024 CASE MANAGEM Normal [facility] CASE MGT INIT ASSESon 2024 CASE MGT INIT ASSES Normal [facility] CBC W Auto Differential pane l (Bld)on 09-21-2024 Basophils (Bld) [#/Vol] 10*3/uL Normal <0.11 [facility] Comment on above: Order Comment: Speci men Type: BLOOD SPECIMENOrdering Facility: [facility] Address: [address] [place] [address] Performed By: #### 5 7021-8 ####[facility] LABCLIA [id number] [place] [address] [place] Basophils/100 WBC (Bld) 0.3 % Normal [facility] Comment on above: Order Comment: Speci men Type: BLOOD SPECIMENOrdering Facility: [facility] Address: [address] [place] [address] Performed By: #### 5 7021-8 ####[facility] LABCLIA [id number] [place] [address] [place] Differential cell count method Nom (Bld) Auto Normal [facility] Comment on above: Order Comment: Speci men Type: BLOOD SPECIMENOrdering Facility: [facility] Address: [address] [place] [address] Performed By: #### 5 7021-8 ####[facility] LABCLIA [id number] [place] [address] [place] Eosinophils (Bld) [#/Vol] 10*3/uL Normal <0.46 [facility] Comment on above: Order Comment: Speci men Type: BLOOD SPECIMENOrdering Facility: [facility] Address: [address] [place] [address] Performed By: #### 5 7021-8 ####[facility] LABCLIA [id number] [place] [address] [place] Eosinophils/100 WBC (Bld) 0.2 % Normal [facility] Comment on above: Order Comment: Speci men Type: BLOOD SPECIMENOrdering Facility: [facility] Address: [address] [place] [address] Performed By: #### 5 7021-8 ####[facility] LABCLIA [id number] [place] [address] [place] Erythrocyte distribution width (RBC) [Ratio] 13.7 % Normal 11.5-15.0 [facility] Comment on above: Order Comment: Speci men Type: BLOOD SPECIMENOrdering Facility: [facility] Address: [address] [place] [address] Performed By: #### 5 7021-8 ####[facility] LABCLIA [id number] [place] [address] [place] Hematocrit (Bld) [Volume fraction] 35.7 % Low 36.0-46.0 [facility] Comment on above: Order Comment: Speci men Type: BLOOD SPECIMENOrdering Facility: [facility] Address: [address] [place] [address] Performed By: #### 5 7021-8 ####[facility] LABCLIA [id number] [place] [address] [place] Hemoglobin (Bld) [Mass/Vol] 11.2 g/dL Low 11.5-15.5 [facility] Comment on above: Order Comment: Speci men Type: BLOOD SPECIMENOrdering Facility: [facility] Address: [address] [place] [address] Performed By: #### 5 7021-8 ####[facility] LABCLIA [id number] [place] [address] [place] Immature granulocytes (Bld) [#/Vol] 10*3/uL Normal <0.10 [facility] Comment on above: Order Comment: Speci men Type: BLOOD SPECIMENOrdering Facility: [facility] Address: [address] [place] [address] Performed By: #### 5 7021-8 ####[facility] LABIA [id number] [place] [address] [place] Immature granulocytes/100 WBC (Bld) 0.3 % Normal [facility] Comment on above: Order Comment: Speci men Type: BLOOD SPECIMENOrdering Facility: [facility] Address: [address] [place] [address] Performed By: #### 5 7021-8 ####[facility] LABCLIA [id number] [place] [address] [place] Lymphocytes (Bld) [#/Vol] 1.31 10*3/uL Normal 1.00-4.00 [facility] Comment on above: Order Comment: Speci men Type: BLOOD SPECIMENOrdering Facility: [facility] Address: [address] [place] [address] Performed By: #### 5 7021-8 ####[facility] LABCLIA [id number] [place] [address] [place] Lymphocytes/100 WBC (Bld) 20.1 % Normal [facility] Comment on above: Order Comment: Speci men Type: BLOOD SPECIMENOrdering Facility: [facility] Address: [address] [place] [address] Performed By: #### 5 7021-8 ####[facility] LABIA [id number] [place] [address] [place] MCH (RBC) [Entitic mass] 28.9 pg Normal 26.0-34.0 [facility] Comment on above: Order Comment: Speci men Type: BLOOD SPECIMENOrdering Facility: [facility] Address: [address] [place] [address] Performed By: #### 5 7021-8 ####[facility] LABIA [id number] [place] [address] [place] MCHC (RBC) [Mass/Vol] 31.4 g/dL Normal 30.5-36.0 [facility] Comment on above: Order Comment: Speci men Type: BLOOD SPECIMENOrdering Facility: [facility] Address: [address] [place] [address] Performed By: #### 5 7021-8 ####[facility] LABIA [id number] [place] [address] [place] MCV (RBC) [Entitic vol] 92.2 fL Normal 80.0-100.0 [facility] Comment on above: Order Comment: Speci men Type: BLOOD SPECIMENOrdering Facility: [facility] Address: [address] [place] [address] Performed By: #### 5 7021-8 ####[facility] LABIA [id number] [place] [address] [place] Monocytes (Bld) [#/Vol] 0.54 10*3/uL Normal <0.87 [facility] Comment on above: Order Comment: Speci men Type: BLOOD SPECIMENOrdering Facility: [facility] Address: [address] [place] [address] Performed By: #### 5 7021-8 ####[facility] LABCLIA [id number] [place] [address] [place] Monocytes/100 WBC (Bld) 8.3 % Normal [facility] Comment on above: Order Comment: Speci men Type: BLOOD SPECIMENOrdering Facility: [facility] Address: [address] [place] [address] Performed By: #### 5 7021-8 ####[facility] LABCLIA [id number] [place] [address] [place] Neutrophils (Bld) [#/Vol] 4.63 10*3/uL Normal 1.45-7.50 [facility] Comment on above: Order Comment: Speci men Type: BLOOD SPECIMENOrdering Facility: [facility] Address: [address] [place] [address] Performed By: #### 5 7021-8 ####[facility] LABCLIA [id number] [place] [address] [place] Neutrophils/100 WBC (Bld) 70.8 % Normal [facility] Comment on above: Order Comment: Speci men Type: BLOOD SPECIMENOrdering Facility: [facility] Address: [address] [place] [address] Performed By: #### 5 7021-8 ####[facility] LABCLIA [id number] [place] [address] [place] Nucleated RBC (Bld) [#/Vol] 10*3/uL Normal <0.01 [facility] Comment on above: Order Comment: Speci men Type: BLOOD SPECIMENOrdering Facility: [facility] Address: [address] [place] [address] Performed By: #### 5 7021-8 ####[facility] LABCLIA [id number] [place] [address] [place] Nucleated RBC/100 WBC (Bld) [Ratio] 0.0 /100 WBC Normal [facility] Comment on above: Order Comment: Speci men Type: BLOOD SPECIMENOrdering Facility: [facility] Address: [address] [place] [address] Performed By: #### 5 7021-8 ####[facility] LABCLIA [id number] [place] [address] [place] Platelet mean volume (Bld) [Entitic vol] 10.7 fL Normal 9.0-12.7 [facility] Comment on above: Order Comment: Speci men Type: BLOOD SPECIMENOrdering Facility: [facility] Address: [address] [place] [address] Performed By: #### 5 7021-8 ####[facility] LABIA [id number] [place] [address] [place] Platelets (Bld) [#/Vol] 158 10*3/uL Normal 150-400 [facility] Comment on above: Order Comment: Speci men Type: BLOOD SPECIMENOrdering Facility: [facility] Address: [address] [place] [address] Performed By: #### 5 7021-8 ####[facility] LABIA [id number] [place] [address] [place] RBC (Bld) [#/Vol] 3.87 10*6/uL Low 3.90-5.20 [facility] Comment on above: Order Comment: Speci men Type: BLOOD SPECIMENOrdering Facility: [facility] Address: [address] [place] [address] Performed By: #### 5 7021-8 ####[facility] LABIA [id number] [place] [address] [place] WBC (Bld) [#/Vol] 6.53 10*3/uL Normal 3.70-11.00 [facility] Comment on above: Order Comment: Speci men Type: BLOOD SPECIMENOrdering Facility: [facility] Address: [address] [place] [address] Performed By: #### 5 7021-8 ####[facility] LABCLIA [id number] [place] [address] [place] Hepatic function 2000 panelo n 09-21-2024 Albumin [Mass/Vol] 3.4 g/dL Low 3.9-4.9 [facility] Comment on above: Order Comment: Speci men Type: BLOOD SPECIMENOrdering Facility: [facility] Address: [address] [place] [address] Performed By: #### 1 9123-9, 2777-1, 15804-2, 28761-0 ####[facility] LABCLIA [id number] [place] [address] [place] ALP [Catalytic activity/Vol] 65 U/L Normal 34-123 [facility] Comment on above: Order Comment: Speci men Type: BLOOD SPECIMENOrdering Facility: [facility] Address: [address] [place] [address] Performed By: #### 1 9123-9, 2777-1, 22621-0, 88672-5 ####[facility] LABCLIA [id number] [place] [address] [place] ALT [Catalytic activity/Vol] 30 U/L Normal 7-38 [facility] Comment on above: Order Comment: Speci men Type: BLOOD SPECIMENOrdering Facility: [facility] Address: [address] [place] [address] Performed By: #### 1 9123-9, 2777-1, 16219-3, 48986-6 ####[facility] LABCLIA [id number] [place] [address] [place] AST [Catalytic activity/Vol] 52 U/L High 13-35 [facility] Comment on above: Order Comment: Speci men Type: BLOOD SPECIMENOrdering Facility: [facility] Address: [address] [place] [address] Performed By: #### 1 9123-9, 2777-1, 35907-5, 55959-2 ####[facility] LABCLIA [id number] [place] [address] [place] Bilirubin [Mass/Vol] 0.9 mg/dL Normal 0.2-1.3 [facility] Comment on above: Order Comment: Speci men Type: BLOOD SPECIMENOrdering Facility: [facility] Address: [address] [place] [address] Performed By: #### 1 9123-9, 2777-1, 49702-7, 46853-2 ####[facility] LABIA [id number] [place] [address] [place] Bilirubin.conjugated [Mass/Vol] 0.3 mg/dL High <0.3 [facility] Comment on above: Order Comment: Speci men Type: BLOOD SPECIMENOrdering Facility: [facility] Address: [address] [place] [address] Performed By: #### 1 9123-9, 2777-1, 93321-1, 85189-2 ####[facility] LABCLIA [id number] [place] [address] [place] Protein [Mass/Vol] 5.8 g/dL Low 6.3-8.0 [facility] Comment on above: Order Comment: Speci men Type: BLOOD SPECIMENOrdering Facility: [facility] Address: [address] [place] [address] Performed By: #### 1 9123-9, 2777-1, 79196-1, 65591-1 ####[facility] LABCLIA [id number] [place] [address] [place] Magnesium SerPl-mCncon 09-21 Magnesium [Mass/Vol] 1.7 mg/dL Normal 1.7-2.3 [facility] Comment on above: Order Comment: Speci men Type: BLOOD SPECIMENOrdering Facility: [facility] Address: [address] [place] [address] Performed By: #### 1 9123-9, 2777-1, 34102-5, 84532-6 ####[facility] LABCLIA [id number] [place] [address] [place] Phosphate SerPl-mCncon 09-21 Phosphate [Mass/Vol] 2.7 mg/dL Normal 2.7-4.8 [facility] Comment on above: Order Comment: Speci men Type: BLOOD SPECIMENOrdering Facility: [facility] Address: [address] [place] [address] Performed By: #### 1 9123-9, 2777-1, 87511-6, 13702-7 ####[facility] LABCLIA [id number] [place] [address] [place] THERAPY NTon 09-21-2024 THERAPY NT Normal [facility] ANES PRE-OPon 09-20-2024 ANES PRE-OP Normal [facility] BRIEF OP NOTon 09-20-2024 BRIEF OP NOT Normal [facility] CBC panel Auto (Bld)on 09-20 Erythrocyte distribution width (RBC) [Ratio] 14.1 % Normal 11.5-15.0 [facility] Comment on above: Order Comment: Speci men Type: BLOOD SPECIMENOrdering Facility: [facility] Address: [address] [place] [address] Performed By: #### 5 8410-2 ####[facility] LABCLIA [id number] [place] [address] [place] Hematocrit (Bld) [Volume fraction] 35.4 % Low 36.0-46.0 [facility] Comment on above: Order Comment: Speci men Type: BLOOD SPECIMENOrdering Facility: [facility] Address: [address] [place] [address] Performed By: #### 5 8410-2 ####[facility] LABIA [id number] [place] [address] [place] Hemoglobin (Bld) [Mass/Vol] 11.1 g/dL Low 11.5-15.5 [facility] Comment on above: Order Comment: Speci men Type: BLOOD SPECIMENOrdering Facility: [facility] Address: [address] [place] [address] Performed By: #### 5 8410-2 ####[facility] [id number] [place] [address] [place] MCH (RBC) [Entitic mass] 28.5 pg Normal 26.0-34.0 [facility] Comment on above: Order Comment: Speci men Type: BLOOD SPECIMENOrdering Facility: [facility] Address: [address] [place] [address] Performed By: #### 5 8410-2 ####[facility] [id number] [place] [address] [place] MCHC (RBC) [Mass/Vol] 31.4 g/dL Normal 30.5-36.0 [facility] Comment on above: Order Comment: Speci men Type: BLOOD SPECIMENOrdering Facility: [facility] Address: [address] [place] [address] Performed By: #### 5 8410-2 ####[facility] [id number] [place] [address] [place] MCV (RBC) [Entitic vol] 90.8 fL Normal 80.0-100.0 [facility] Comment on above: Order Comment: Speci men Type: BLOOD SPECIMENOrdering Facility: [facility] Address: [address] [place] [address] Performed By: #### 5 8410-2 ####[facility] LABCLIA [id number] [place] [address] [place] Nucleated RBC (Bld) [#/Vol] 10*3/uL Normal <0.01 [facility] Comment on above: Order Comment: Speci men Type: BLOOD SPECIMENOrdering Facility: [facility] Address: [address] [place] [address] Performed By: #### 5 8410-2 ####[facility] LABIA [id number] [place] [address] [place] Platelet mean volume (Bld) [Entitic vol] 10.0 fL Normal 9.0-12.7 [facility] Comment on above: Order Comment: Speci men Type: BLOOD SPECIMENOrdering Facility: [facility] Address: [address] [place] [address] Performed By: #### 5 8410-2 ####[facility] LABIA [id number] [place] [address] [place] Platelets (Bld) [#/Vol] 137 10*3/uL Low 150-400 [facility] Comment on above: Order Comment: Speci men Type: BLOOD SPECIMENOrdering Facility: [facility] Address: [address] [place] [address] Result Comment: Resu lts checked and verified.No clot detected. Performed By: #### 5 8410-2 ####[facility] LABIA [id number] [place] [address] [place] RBC (Bld) [#/Vol] 3.90 10*6/uL Normal 3.90-5.20 [facility] Comment on above: Order Comment: Speci men Type: BLOOD SPECIMENOrdering Facility: [facility] Address: [address] [place] [address] Performed By: #### 5 8410-2 ####[facility] LABCLIA [id number] [place] [address] [place] WBC (Bld) [#/Vol] 7.72 10*3/uL Normal 3.70-11.00 [facility] Comment on above: Order Comment: Speci men Type: BLOOD SPECIMENOrdering Facility: [facility] Address: [address] [place] [address] Performed By: #### 5 8410-2 ####[facility] LABCLIA [id number] [place] [address] [place] OPERATIVE NOon 09-20-2024 OPERATIVE NO Normal [facility] SURGICAL PATHOLOGYon 025 CASE REPORT Normal [facility] Comment on above: Order Comment: Speci men Type: TISSUE SPECIMENOrdering Facility: [facility] Address: [address] [place] [address] Result Comment: Surg ica Pathology Report Case: [id number] Provider: Anila De Paz MD Collected: 09/20/2024 11:38 AMOrdering Location: Admitting Received: 09/20/2024 02:49 PMPathologist: Susan Ku MDSpecimens: A) - Hernia Sac B) - Gallbladder Performed By: #### S ####[facility] LABIA [id number] [place] [address] [place] CLINICAL HISTORY Normal [facility] Comment on above: Order Comment: Speci men Type: TISSUE SPECIMENOrdering Facility: [facility] Address: [address] [place] [address] Result Comment: Pre- op diagnosis:Hiatal hernia [K44.9]Epigastric pain [R10.13]Nausea and vomiting, unspecified vomiting type [R11.2]Pre-op exam [Z01.818] Performed By: #### S ####[facility] LABCLIA [id number] [place] [address] [place] FINAL DIAGNOSIS Normal [facility] Comment on above: Order Comment: Speci men Type: TISSUE SPECIMENOrdering Facility: [facility] Address: [address] [place] [address] Result Comment: A. H ernia sac, resection:- Benign fibroadipose tissue.B. Gallbladder, cholecystectomy:- Mild chronic cholecystitis. Performed By: #### S ####[facility] LABCLIA [id number] [address] [place] FINAL PERFORMING LAB Normal [facility] Comment on above: Order Comment: Corinei franco Type: TISSUE SPECIMENOrdering Facility: [facility] Address: [address] [place] [address] Result Comment: Diag nostic interpretation performed at: [facility], [address] [place] [address] CLIA# [id number] Director: Rosales Quintana MD Performed By: #### S ####[facility] LABCLIA [id number] [address] GROSS DESCRIPTION A. Hernia Sac Normal [facility] Comment on above: Order Comment: Ramirez gamez Type: TISSUE SPECIMENOrdering Facility: [facility] Address: [address] [place] [address] Result Comment: Rece ived in formalin, labeled [...] The cystic duct margin (en face) and solar manufacturer's representative sections of the gallbladder wall are submitted in B1.KSZ September 20, 2024 3:38 PMGross examination performed at [facility], [address] [place] [address] Performed By: #### S ####[facility] LABCLIA [id number] [place] [id number] OF [facility] Chest without Contraston Chest without Contrast [facility] Services [address] [place] [address] Chest without Contrast MR#: [id number] Acct: [id number] Name: LAUREN ALCARAZ Rep #: [id number] : 1940 F 84 From: Gunnar Carrero MD PCP: Dr. Chema Perry MD Status: REG ER Study: Chest without Contrast Date of Exam: 09/18/24 Exam# [id number] Ordering Dr: Susan Emery DO PROCEDURE: CHEST [...] Contrast IMPRESSION: Improved airspace aeration compared to 2021, with persistent streaky airspace opacities in the lingula and right lower lobe with associated peribronchial thickening. Chronic processes are favored, however, acute infectious disease can not be definitively excluded. One or more dose reduction techniques were used (e.g., Automated exposure control, adjustment of the mA and/or kV according to patient size, use of iterative reconstruction technique). Reading Location: [facility] CC: Dr. Susan Emery DO; Dr. Chema Perry MD Computer Network And Systems Engineer: Signed Normal [facility] Emergency Department Summary on 09-18-2024 Emergency Department Summary [facility] Medical Records Department [address] [place] [address] Emergency Department Summary 09/18/24 MR#: [id number] Acct: [id number] Name: LAUREN ALCARAZ Rep #: [id number] : 1940 84 From: Susan Emery DO [...] of breath. Pain is worse with movement. [facility] Medical History Open wound of right lower [...] artery ( 1989) Atherosclerotic heart disease of teller coronary artery without angina pectoris Essential hypertension [...] Medications ???Medication ???Instructions ???Recorded ???Last Taken ???Type L.acidophil-L.casei-B.bif id-B.longum-FOS 1 cap PO DAILY Supplement 09/02/21 10/05/21 [...] denosumab 60 mg/mL subcutaneous 60 mg subcut [id number] #1 mL Unknown Rx syringe (Prolia) BD [...] Rx vortiox (more content not included)... Normal [facility] CBC W Auto Differential pane l (Bld)on 09-14-2024 Basophils (Bld) [#/Vol] 10*3/uL Normal <0.11 [facility] Comment on above: Order Comment: Speci men Type: BLOOD SPECIMENOrdering Facility: [facility] Address: [address] [place] [address] Performed By: #### 5 7021-8 ####[facility] [id number] [place] [address] [place] Basophils/100 WBC (Bld) 0.2 % Normal [facility] Comment on above: Order Comment: Speci men Type: BLOOD SPECIMENOrdering Facility: [facility] Address: [address] [place] [address] Performed By: #### 5 7021-8 ####[facility]CL[facility] [id number] [place] [address] [place] Differential cell count method Nom (Bld) Auto Normal [facility] Comment on above: Order Comment: Speci men Type: BLOOD SPECIMENOrdering Facility: [facility] Address: [address] [place] [address] Performed By: #### 5 7021-8 ####[facility]IAHLIFE[facility] [id number] [place] [address] [place] Eosinophils (Bld) [#/Vol] 0.10 10*3/uL Normal <0.46 [facility] Comment on above: Order Comment: Speci men Type: BLOOD SPECIMENOrdering Facility: [facility] Address: [address] [place] [address] Performed By: #### 5 7021-8 ####[facility] [id number] [place] [address] [place] Eosinophils/100 WBC (Bld) 1.8 % Normal [facility] Comment on above: Order Comment: Speci men Type: BLOOD SPECIMENOrdering Facility: [facility] Address: [address] [place] [address] Performed By: #### 5 7021-8 ####[facility]ILDRENRENETTA [id number] [place] [address] [place] Erythrocyte distribution width (RBC) [Ratio] 14.1 % Normal 11.5-15.0 [facility] Comment on above: Order Comment: Speci men Type: BLOOD SPECIMENOrdering Facility: [facility] Address: [address] [place] [address] Performed By: #### 5 7021-8 ####[facility]DRENNCLI [id number] [place] [address] [place] Hematocrit (Bld) [Volume fraction] 34.6 % Low 36.0-46.0 [facility] Comment on above: Order Comment: Speci men Type: BLOOD SPECIMENOrdering Facility: [facility] Address: [address] [place] [address] Performed By: #### 5 7021-8 ####[facility]CL[facility] [id number] [place] [address] [place] Hemoglobin (Bld) [Mass/Vol] 11.2 g/dL Low 11.5-15.5 [facility] Comment on above: Order Comment: Speci men Type: BLOOD SPECIMENOrdering Facility: [facility] Address: [address] [place] [address] Performed By: #### 5 7021-8 ####[facility]CL[facility] [id number] [place] [address] [place] Immature granulocytes (Bld) [#/Vol] 10*3/uL Normal <0.10 [facility] Comment on above: Order Comment: Speci men Type: BLOOD SPECIMENOrdering Facility: [facility] Address: [address] [place] [address] Performed By: #### 5 7021-8 ####[facility]DRENNCA [id number] [place] [address] [place] Immature granulocytes/100 WBC (Bld) 0.2 % Normal [facility] Comment on above: Order Comment: Speci men Type: BLOOD SPECIMENOrdering Facility: [facility] Address: [address] [place] [address] Performed By: #### 5 7021-8 ####[facility]CLIA [id number] [place] [address] [place] Lymphocytes (Bld) [#/Vol] 1.92 10*3/uL Normal 1.00-4.00 [facility] Comment on above: Order Comment: Speci men Type: BLOOD SPECIMENOrdering Facility: [facility] Address: [address] [place] [address] Performed By: #### 5 7021-8 ####[facility] HERMINIOBINALIA [id number] [place] [address] [place] Lymphocytes/100 WBC (Bld) 35.0 % Normal [facility] Comment on above: Order Comment: Speci men Type: BLOOD SPECIMENOrdering Facility: [facility] Address: [address] [place] [address] Performed By: #### 5 7021-8 ####[facility]ILDRENMORIAHLIA [id number] [place] [address] [place] MCH (RBC) [Entitic mass] 29.4 pg Normal 26.0-34.0 [facility] Comment on above: Order Comment: Speci men Type: BLOOD SPECIMENOrdering Facility: [facility] Address: [address] [place] [address] Performed By: #### 5 7021-8 ####[facility] KISSIMMEEA [id number] [place] [address] [place] MCHC (RBC) [Mass/Vol] 32.4 g/dL Normal 30.5-36.0 [facility] Comment on above: Order Comment: Speci men Type: BLOOD SPECIMENOrdering Facility: [facility] Address: [address] [place] [address] Performed By: #### 5 7021-8 ####[facility] HOSPITALLIA [id number] [place] [address] [place] MCV (RBC) [Entitic vol] 90.8 fL Normal 80.0-100.0 [facility] Comment on above: Order Comment: Speci men Type: BLOOD SPECIMENOrdering Facility: [facility] Address: [address] [place] [address] Performed By: #### 5 7021-8 ####[facility] [id number] [place] [address] [place] Monocytes (Bld) [#/Vol] 0.43 10*3/uL Normal <0.87 [facility] Comment on above: Order Comment: Speci men Type: BLOOD SPECIMENOrdering Facility: [facility] Address: [address] [place] [address] Performed By: #### 5 7021-8 ####[facility] WESTWNCLIA [id number] [place] [address] [place] Monocytes/100 WBC (Bld) 7.8 % Normal [facility] Comment on above: Order Comment: Speci men Type: BLOOD SPECIMENOrdering Facility: [facility] Address: [address] [place] [address] Performed By: #### 5 7021-8 ####[facility]DRENNCLIA [id number] [place] [address] [place] Neutrophils (Bld) [#/Vol] 3.01 10*3/uL Normal 1.45-7.50 [facility] Comment on above: Order Comment: Speci men Type: BLOOD SPECIMENOrdering Facility: [facility] Address: [address] [place] [address] Performed By: #### 5 7021-8 ####[facility]DR[facility] HOSPITALLIA [id number] [place] [address] [place] Neutrophils/100 WBC (Bld) 55.0 % Normal [facility] Comment on above: Order Comment: Speci men Type: BLOOD SPECIMENOrdering Facility: [facility] Address: [address] [place] [address] Performed By: #### 5 7021-8 ####[facility]DRENNCLIA [id number] [place] [address] [place] Nucleated RBC (Bld) [#/Vol] 10*3/uL Normal <0.01 [facility] Comment on above: Order Comment: Speci men Type: BLOOD SPECIMENOrdering Facility: [facility] Address: [address] [place] [address] Performed By: #### 5 7021-8 ####[facility] RAFITA ISANCJESUS [id number] [place] [address] [place] Nucleated RBC/100 WBC (Bld) [Ratio] 0.0 /100 WBC Normal [facility] Comment on above: Order Comment: Speci men Type: BLOOD SPECIMENOrdering Facility: [facility] Address: [address] [place] [address] Performed By: #### 5 7021-8 ####[facility] HERMINIODAYVILLENCLIStacy [id number] [place] [address] [place] Platelet mean volume (Bld) [Entitic vol] 10.1 fL Normal 9.0-12.7 [facility] Comment on above: Order Comment: Speci men Type: BLOOD SPECIMENOrdering Facility: [facility] Address: [address] [place] [address] Performed By: #### 5 7021-8 ####[facility]DRENNCLIA [id number] [place] [address] [place] Platelets (Bld) [#/Vol] 148 10*3/uL Low 150-400 [facility] Comment on above: Order Comment: Speci men Type: BLOOD SPECIMENOrdering Facility: [facility] Address: [address] [place] [address] Performed By: #### 5 7021-8 ####[facility]DRENNCLIA [id number] [place] [address] [place] RBC (Bld) [#/Vol] 3.81 10*6/uL Low 3.90-5.20 [facility] Comment on above: Order Comment: Speci men Type: BLOOD SPECIMENOrdering Facility: [facility] Address: [address] [place] [address] Performed By: #### 5 7021-8 ####[facility]ILDRENMORIAHLIA [id number] [place] [address] [place] WBC (Bld) [#/Vol] 5.48 10*3/uL Normal 3.70-11.00 [facility] Comment on above: Order Comment: Speci men Type: BLOOD SPECIMENOrdering Facility: [facility] Address: [address] [place] [address] Performed By: #### 5 7021-8 ####[facility]IMME[facility] [id number] [place] [address] [place] [facility] CONFIRM BLOOD TYPEon 025 ABO A Normal [facility] Comment on above: Order Comment: Speci men Type: BLOOD SPECIMENOrdering Facility: [facility] Address: [address] [place] [address] Performed By: #### C ONABO ####CC MAIN BLOOD BANKCLIA [id number] [place] [address] [place] Rh Nom (Bld) Positive Normal [facility] Comment on above: Order Comment: Speci men Type: BLOOD SPECIMENOrdering Facility: [facility] Address: [address] [place] [address] Performed By: #### C ONABO ####CC MAIN BLOOD BANKCLIA [id number] [place] [address] [place] Comprehensive metabolic 2000 panelon 09-14-2024 Albumin [Mass/Vol] 3.9 g/dL Normal 3.9-4.9 [facility] Comment on above: Order Comment: Speci men Type: BLOOD SPECIMENOrdering Facility: [facility] Address: [address] [place] [address] Performed By: #### 2 4323-8 ####[facility] [id number] [place] [address] [place] ALP [Catalytic activity/Vol] 66 U/L Normal 34-123 [facility] Comment on above: Order Comment: Speci men Type: BLOOD SPECIMENOrdering Facility: [facility] Address: [address] [place] [address] Performed By: #### 2 4323-8 ####[facility] RAFITA MILLWNCLIA [id number] [place] [address] [place] ALT [Catalytic activity/Vol] 15 U/L Normal 7-38 [facility] Comment on above: Order Comment: Speci men Type: BLOOD SPECIMENOrdering Facility: [facility] Address: [address] [place] [address] Performed By: #### 2 4323-8 ####[facility]DRENNCLIA [id number] [place] [address] [place] Anion gap [Moles/Vol] 7 mmol/L Low 8-15 [facility] Comment on above: Order Comment: Speci men Type: BLOOD SPECIMENOrdering Facility: [facility] Address: [address] [place] [address] Performed By: #### 2 4323-8 ####[facility] HOSPITALLIA [id number] [place] [address] [place] AST [Catalytic activity/Vol] 20 U/L Normal 13-35 [facility] Comment on above: Order Comment: Speci men Type: BLOOD SPECIMENOrdering Facility: [facility] Address: [address] [place] [address] Performed By: #### 2 4323-8 ####[facility]IMME[facility] [id number] [place] [address] [place] Bilirubin [Mass/Vol] 0.3 mg/dL Normal 0.2-1.3 [facility] Comment on above: Order Comment: Speci men Type: BLOOD SPECIMENOrdering Facility: [facility] Address: [address] [place] [address] Performed By: #### 2 4323-8 ####[facility] RAFITA MILLTOWNCLIA [id number] [place] [address] [place] Calcium [Mass/Vol] 9.3 mg/dL Normal 8.5-10.2 [facility] Comment on above: Order Comment: Speci men Type: BLOOD SPECIMENOrdering Facility: [facility] Address: [address] [place] [address] Performed By: #### 2 4323-8 ####[facility] MILLTOWNCLIA [id number] [place] [address] [place] Chloride [Moles/Vol] 106 mmol/L Normal 98-107 [facility] Comment on above: Order Comment: Speci men Type: BLOOD SPECIMENOrdering Facility: [facility] Address: [address] [place] [address] Performed By: #### 2 4323-8 ####[facility] MILLTOWNCLIA [id number] [place] [address] [place] CO2 [Moles/Vol] 27 mmol/L Normal 22-30 [facility] Comment on above: Order Comment: Speci men Type: BLOOD SPECIMENOrdering Facility: [facility] Address: [address] [place] [address] Performed By: #### 2 4323-8 ####[facility] RAFITA MILLTOWNCLIA [id number] [place] [address] [place] Creatinine [Mass/Vol] 0.99 mg/dL High 0.58-0.96 [facility] Comment on above: Order Comment: Speci men Type: BLOOD SPECIMENOrdering Facility: [facility] Address: [address] [place] [address] Performed By: #### 2 4323-8 ####[facility] MILLTOWNCLIA [id number] [place] [address] [place] Creatinine and Glomerular filtration rate.predicted panel (S/P/Bld) 57 mL/min/1.73m??? Low >=60 [facility] Comment on above: Order Comment: Ramirez gamez Type: BLOOD SPECIMENOrdering Facility: [facility] Address: [address] [place] [address] Result Comment: Brandy mated Glomerular Filtration Rate [...] actual GFR. Performed By: #### 2 4323-8 ####[facility] [id number] [place] [address] [place] Glucose [Mass/Vol] 92 mg/dL Normal 74-99 [facility] Comment on above: Order Comment: Ramirez gamez Type: BLOOD SPECIMENOrdering Facility: [facility] Address: [address] [place] [address] Result Comment: The [place] Diabetes Association (ADA) provides guidance for cutoff [...] Standards of Medical Care in Diabetes 2016, [place] [employer] Association. Diabetes Care. 2016.39(Suppl 1). Performed By: #### 2 4323-8 ####[facility] [id number] [place] [address] [place] Potassium [Moles/Vol] 4.1 mmol/L Normal 3.7-5.1 [facility] Comment on above: Order Comment: Speci men Type: BLOOD SPECIMENOrdering Facility: [facility] Address: [address] [place] [address] Performed By: #### 2 4323-8 ####[facility] RAFITA MILLTOWNCLIA [id number] [place] [address] [place] Protein [Mass/Vol] 6.4 g/dL Normal 6.3-8.0 [facility] Comment on above: Order Comment: Speci men Type: BLOOD SPECIMENOrdering Facility: [facility] Address: [address] [place] [address] Performed By: #### 2 4323-8 ####[facility]DRENNCL[facility] [id number] [place] [address] [place] Sodium [Moles/Vol] 140 mmol/L Normal 136-144 [facility] Comment on above: Order Comment: Speci men Type: BLOOD SPECIMENOrdering Facility: [facility] Address: [address] [place] [address] Performed By: #### 2 4323-8 ####[facility] HOSPITALLIA [id number] [place] [address] [place] Urea nitrogen [Mass/Vol] 34 mg/dL High 7-21 [facility] Comment on above: Order Comment: Speci men Type: BLOOD SPECIMENOrdering Facility: [facility] Address: [address] [place], [place] [address] Performed By: #### 2 4323-8 ####[facility] MILLWELLSTONE REGIONAL HOSPITALLIA [id number] [place] [address] [place] HISTORY PHYSICALon HISTORY PHYSICAL Normal [facility] LIPID PANEL, NONFASTINGon Cholesterol [Mass/Vol] 137 mg/dL Normal <200 [facility] Comment on above: Order Comment: Speci men Type: BLOOD SPECIMENOrdering Facility: [facility] Address: [address] [place] [address] Result Comment: <200 mg/dL, Desirable 200-239 mg/dL, Borderline high>239 mg/dL, High Performed By: #### L IPNF ####[facility] LABCLIA [id number] [place] [address] [place] HDL CHOLESTEROL, NF 63 mg/dL Normal >39 [facility] Comment on above: Order Comment: Speci men Type: BLOOD SPECIMENOrdering Facility: [facility] Address: [address] [place] [address] Result Comment: 40-5 9 mg/dL, Acceptable>59 mg/dL, High: Negative risk factor for coronary heart disease<40 mg/dL, Low: Positive risk factor for coronary heart disease Performed By: #### L IPNF ####[facility] LABCLIA [id number] [place] [address] [place] LDL CHOLESTEROL, NF 61 mg/dL Normal <100 [facility] Comment on above: Order Comment: Speci men Type: BLOOD SPECIMENOrdering Facility: [facility] Address: [address] [place] [address] Result Comment: <100 mg/dL, Optimal 100-129 mg/dL, Near optimal/above optimal 130-159 mg/dL, Borderline high 160-189 mg/dL, High>189 mg/dL, Very highSecondary prevention optimal LDL Cholesterol levels are recommended to be < 70 mg/dL Performed By: #### L IPNF ####[facility] LABCLIA [id number] [place] [address] [place] LDL/HDL RATIO, NF 0.97 mg/dL Normal <2.54 [facility] Comment on above: Order Comment: Speci men Type: BLOOD SPECIMENOrdering Facility: [facility] Address: [address] [place] [address] Result Comment: Refe rence:1. National Cholesterol Education Program ATP III Guideline At-A-Glance Quick Desk Reference: National Heart, Lung, and Blood [place]. National Institutes of Health. 2001: NIH Publication No. 01-3305.2. An International Atherosclerosis Society position paper: global recommendations for the management of dyslipidemia: executive summary, Atherosclerosis. 2014: 232(2):410-413. Performed By: #### L IPNF ####[facility] LABCLIA [id number] [place] [address] [place] NON HDL CHOL, NF 74 mg/dL Normal <130 [facility] Comment on above: Order Comment: Speci men Type: BLOOD SPECIMENOrdering Facility: [facility] Address: [address] [place] [address] Result Comment: <130 mg/dL, Optimal 130-159 mg/dL, Near optimal/above optimal 160-189 mg/dL, Borderline high 190-219 mg/dL, High>219 mg/dL, Very highSecondary prevention optimal non HDL Cholesterol levels are recommended to be <100 mg/dL Performed By: #### L IPNF ####[facility] [facility] LAB[facility] [id number] [address] [place] T CHOL/HDL RATIO NF 2.17 mg/dL Normal <5.10 [facility] Comment on above: Order Comment: Speci [facility] Type: BLOOD SPECIMENOrdering Facility: [facility] Address: [address] [place] [address] Performed By: #### L IPNF ####[facility] LABCLIA [id number] [place] [address] [place] TRIGLYCERIDES, NF 65 mg/dL Normal <150 [facility] Comment on above: Order Comment: Corinei [facility] Type: BLOOD SPECIMENOrdering Facility: [facility] Address: [address] [place] [address] Result Comment: <150 mg/dL, Normal 150-199 mg/dL, Borderline high 200-499 mg/dL, High>499 mg/dL, Very high Performed By: #### L IPNF ####[facility] LABCLIA [id number] [place] [address] [place] VLDL CHOLESTEROL, NF 13 mg/dL Normal <30 [facility] Comment on above: Order Comment: Speci men Type: BLOOD SPECIMENOrdering Facility: [facility] Address: [address] [place] [address] Performed By: #### L IPNF ####[facility] LABCLIA [id number] [place] [address] [place] TYPE AND SCREEN,30 DAYon ABO A Normal [facility] Comment on above: Order Comment: Speci men Type: BLOOD SPECIMENOrdering Facility: [facility] Address: [address] [place] [address] Performed By: #### T SCR30 ####[facility] BLOOD BANKCLIA [id number] [place] [address] [place] Rh Nom (Bld) Positive Normal [facility] Comment on above: Order Comment: Speci men Type: BLOOD SPECIMENOrdering Facility: [facility] Address: [address] [place] [address] Performed By: #### T SCR30 ####[facility] BLOOD BANKCLIA [id number] [place] [address] [place] ANES POSTPROC EVALon 025 ANES POSTPROC EVAL Normal [facility] ANES PRE-OPon 09-13-2024 ANES PRE-OP Normal [facility] EGD Study observation Narrat iveon 09-13-2024 [facility] Radiology Study observation (narrative) [facility] ERCPon 09-13-2024 ERCP Normal [facility] ERCP Study observation Narra tiveon 09-13-2024 [facility] Radiology Study observation (narrative) [facility] HISTORY PHYSICALon HISTORY PHYSICAL Normal [facility] NURSING PROGon 09-13-2024 NURSING PROG Normal [facility] NURSING PROG Normal [facility] NURSING PROG Normal [facility] Upper EUSon 09-13-2024 Upper EUS Normal [facility] EMG(NEURO/NI)on 09-10-2024 Results can be seen in attached scanned documents. If you are a patient reviewing this test result, call the doctor who ordered the test with any questions. [facility] CNPNon 09-09-2024 CNPN Normal [facility] CNPNon 09-08-2024 CNPN Normal [facility] MR Biliary ducts and Pancrea tic duct WO and W contrast Chava 09-07-2024 * * *Final Report* * * DATE OF EXAM: Sep 07 2024 10:31AM [facility] 0730 - MRI PANC/MAGNOLIA WO/W IVCON / [...] DATE OF EXAM: Sep 07 2024 10:31AM [facility] 0730 - MRI PANC/MAGNOLIA WO/W IVCON / [...] be communicated with the ordering provider via [employer] staff message or phone message by [employer] within 2 business days of report finalization. --END OF FINDING-- Computer Network And Systems Engineer: ARTHUR Transcribe Date/Time: Sep 07 2024 10:32A Dictated by : VON COLES, DO This examination was interpreted and the report reviewed and electronically signed by: PIA DAVEY MD on Sep 07 2024 3:23PM [facility] MR Unspecified body region 3 D post processingon 09-07-2024 * * *Final Report* * * DATE OF EXAM: Sep 07 2024 9:50AM [facility] 0280 - MRI 3D POST PROCESSING [...] DATE OF EXAM: Sep 07 2024 9:50AM [facility] 0280 - MRI 3D POST PROCESSING [...] be communicated with the ordering provider via [employer] staff message or phone message by [employer] within 2 business days of report finalization. --END OF FINDING-- Computer Network And Systems Engineer: ARTHUR Transcribe Date/Time: Sep 07 2024 10:32A Dictated by : VON COLES, DO This examination was interpreted and the report reviewed and electronically signed by: PIA ADVEY MD on Sep 07 2024 3:23PM EST [facility] MRI 3D POST PROCESSINGon MRI 3D POST PROCESSING Invalid Interpretation Code [facility] MRI PANC/MAGNOLIA WO/W IVCONon MRI PANC/MAGNOLIA WO/W IVCON Invalid Interpretation Code [facility] No Panel InformationOrdered By: Ccf Provider on 09-07-2024 Interpretation and review of laboratory results Abnormal [facility] Radiology Result ACTIONABLE Abnormal [facility] Comment on above: This report contains an [...] be communicated with the ordering provider via [employer] staff message or phone message by [employer] within 2 business days of report finalization. --END OF FINDING-- Computer Network And Systems Engineer: GLORYB Transcribe Date/Time: Sep 07 2024 10:32A Dictated by : BALKARAN SANKET, DO This examination was interpreted and the report reviewed and electronically signed by: PIA DAVEY MD on Sep 07 2024 3:23PM [facility] DIVISION OF RADIOLOGY Radiology Study observation (narrative) [facility] CNPNon 09-06-2024 CNPN Normal [facility] CNCNPATEDon 09-03-2024 CNCNPATED Normal [facility] CNOVon 09-03-2024 CNOV Normal [facility] HISTORY PHYSICALon HISTORY PHYSICAL Normal [facility] CNPNon 08-25-2024 CNPN Normal [facility] US CAROTID ARTERIES MAGNOLIA VAS LABon 08-25-2024 US CAROTID ARTERIES MAGNOLIA VAS LAB Normal [facility] CBC panel Auto (Bld)on 08-09 Erythrocyte distribution width (RBC) [Ratio] 13.9 % Normal 11.5-15.0 [facility] Comment on above: Order Comment: Speci men Type: BLOOD SPECIMENOrdering Facility: [facility] Address: [address] [place] [address] Performed By: #### 5 8410-2 ####[facility] LABIA [id number] [place] [address] [place] Hematocrit (Bld) [Volume fraction] 38.9 % Normal 36.0-46.0 [facility] Comment on above: Order Comment: Speci men Type: BLOOD SPECIMENOrdering Facility: [facility] Address: [address] [place] [address] Performed By: #### 5 8410-2 ####[facility] LABCLIA [id number] [place] [address] [place] Hemoglobin (Bld) [Mass/Vol] 12.3 g/dL Normal 11.5-15.5 [facility] Comment on above: Order Comment: Speci men Type: BLOOD SPECIMENOrdering Facility: [facility] Address: [address] [place] [address] Performed By: #### 5 8410-2 ####[facility] LABCLIA [id number] [place] [address] [place] MCH (RBC) [Entitic mass] 29.6 pg Normal 26.0-34.0 [facility] Comment on above: Order Comment: Speci men Type: BLOOD SPECIMENOrdering Facility: [facility] Address: [address] [place] [address] Performed By: #### 5 8410-2 ####[facility] LABCLIA [id number] [place] [address] [place] MCHC (RBC) [Mass/Vol] 31.6 g/dL Normal 30.5-36.0 [facility] Comment on above: Order Comment: Speci men Type: BLOOD SPECIMENOrdering Facility: [facility] Address: [address] [place] [address] Performed By: #### 5 8410-2 ####[facility] LABCLIA [id number] [place] [address] [place] MCV (RBC) [Entitic vol] 93.7 fL Normal 80.0-100.0 [facility] Comment on above: Order Comment: Speci men Type: BLOOD SPECIMENOrdering Facility: [facility] Address: [address] [place] [address] Performed By: #### 5 8410-2 ####[facility] LABIA [id number] [place] [address] [place] Nucleated RBC (Bld) [#/Vol] 10*3/uL Normal <0.01 [facility] Comment on above: Order Comment: Speci men Type: BLOOD SPECIMENOrdering Facility: [facility] Address: [address] [place] [address] Performed By: #### 5 8410-2 ####[facility] LABCLIA [id number] [place] [address] [place] Platelet mean volume (Bld) [Entitic vol] 10.4 fL Normal 9.0-12.7 [facility] Comment on above: Order Comment: Speci men Type: BLOOD SPECIMENOrdering Facility: [facility] Address: [address] [place] [address] Performed By: #### 5 8410-2 ####[facility] LABCLIA [id number] [place] [address] [place] Platelets (Bld) [#/Vol] 210 10*3/uL Normal 150-400 [facility] Comment on above: Order Comment: Speci men Type: BLOOD SPECIMENOrdering Facility: [facility] Address: [address] [place] [address] Performed By: #### 5 8410-2 ####[facility] LABCLIA [id number] [place] [address] [place] RBC (Bld) [#/Vol] 4.15 10*6/uL Normal 3.90-5.20 [facility] Comment on above: Order Comment: Speci men Type: BLOOD SPECIMENOrdering Facility: [facility] Address: [address] [place] [address] Performed By: #### 5 8410-2 ####[facility] LABCLIA [id number] [place] [address] [place] WBC (Bld) [#/Vol] 5.66 10*3/uL Normal 3.70-11.00 [facility] Comment on above: Order Comment: Speci men Type: BLOOD SPECIMENOrdering Facility: [facility] Address: [address] [place] [address] Performed By: #### 5 8410-2 ####[facility] LABCLIA [id number] [place] [address] [place] Comprehensive metabolic 2000 panelon 08-09-2024 Albumin [Mass/Vol] 3.7 g/dL Low 3.9-4.9 [facility] Comment on above: Order Comment: Speci men Type: BLOOD SPECIMENOrdering Facility: [facility] Address: [address] [place] [id number] Performed By: #### 2 4323-8 ####[facility] LABCLIA [id number] [place] [address] [place] ALP [Catalytic activity/Vol] 70 U/L Normal 34-123 [facility] Comment on above: Order Comment: Speci men Type: BLOOD SPECIMENOrdering Facility: [facility] Address: [address] [place] [address] Performed By: #### 2 4323-8 ####[facility] LABCLIA [id number] [place] [address] [place] ALT [Catalytic activity/Vol] 19 U/L Normal 7-38 [facility] Comment on above: Order Comment: Speci men Type: BLOOD SPECIMENOrdering Facility: [facility] Address: [address] [place] [address] Performed By: #### 2 4323-8 ####[facility] LABCLIA [id number] [place] [address] [place] Anion gap [Moles/Vol] 12 mmol/L Normal 8-15 [facility] Comment on above: Order Comment: Speci men Type: BLOOD SPECIMENOrdering Facility: [facility] Address: [address] [place] [address] Performed By: #### 2 4323-8 ####[facility] LABCLIA [id number] [place] [address] [place] AST [Catalytic activity/Vol] 29 U/L Normal 13-35 [facility] Comment on above: Order Comment: Speci men Type: BLOOD SPECIMENOrdering Facility: [facility] Address: [address] [place] [address] Performed By: #### 2 4323-8 ####[facility] LABCLIA [id number] [place] [address] [place] Bilirubin [Mass/Vol] 0.4 mg/dL Normal 0.2-1.3 [facility] Comment on above: Order Comment: Speci men Type: BLOOD SPECIMENOrdering Facility: [facility] Address: [address] [place] [address] Performed By: #### 2 4323-8 ####[facility] LABCLIA [id number] [address] [address] [place] Calcium [Mass/Vol] 9.0 mg/dL Normal 8.5-10.2 [facility] Comment on above: Order Comment: Speci men Type: BLOOD SPECIMENOrdering Facility: [facility] Address: [address] [place] [address] Performed By: #### 2 4323-8 ####[facility] LABCLIA [id number] [place] [address] [place] Chloride [Moles/Vol] 104 mmol/L Normal 98-107 [facility] Comment on above: Order Comment: Speci men Type: BLOOD SPECIMENOrdering Facility: [facility] Address: [address] [place] [address] Performed By: #### 2 4323-8 ####[facility] LABCLIA [id number] [place] [address] [place] CO2 [Moles/Vol] 23 mmol/L Normal 22-30 [facility] Comment on above: Order Comment: Speci men Type: BLOOD SPECIMENOrdering Facility: [facility] Address: [address] [place] [address] Performed By: #### 2 4323-8 ####[facility] LABCLIA [id number] [place] [id number] [place] Creatinine [Mass/Vol] 0.85 mg/dL Normal 0.58-0.96 [facility] Comment on above: Order Comment: Speci men Type: BLOOD SPECIMENOrdering Facility: [facility] Address: [address] [place] [address] Performed By: #### 2 4323-8 ####[facility] LABCLIA [id number] [place] [address] [place] Creatinine and Glomerular filtration rate.predicted panel (S/P/Bld) 69 mL/min/1.73m??? Normal >=60 [facility] Comment on above: Order Comment: Ramirez gamez Type: BLOOD SPECIMENOrdering Facility: [facility] Address: [address] [place] [address] Result Comment: Brandy mated Glomerular Filtration Rate [...] actual GFR. Performed By: #### 2 4323-8 ####[facility] LABIA [id number] [place] [address] [place] Glucose [Mass/Vol] 121 mg/dL High 74-99 [facility] Comment on above: Order Comment: Ramirez gamez Type: BLOOD SPECIMENOrdering Facility: [facility] Address: [address] [place] [address] Result Comment: The [place] Diabetes [employer] (ADA) provides guidance for cutoff [...] Standards of Medical Care in Diabetes 2016, [place] [employer]. Diabetes Care. 2016.39(Suppl 1). Performed By: #### 2 4323-8 ####[facility] LABCLIA [id number] [place] [address] [place] Potassium [Moles/Vol] 4.7 mmol/L Normal 3.7-5.1 [facility] Comment on above: Order Comment: Speci men Type: BLOOD SPECIMENOrdering Facility: [facility] Address: [address] [place] [address] Performed By: #### 2 4323-8 ####[facility] LABCLIA [id number] [place] [address] [place] Protein [Mass/Vol] 6.5 g/dL Normal 6.3-8.0 [facility] Comment on above: Order Comment: Speci men Type: BLOOD SPECIMENOrdering Facility: [facility] Address: [address] [place] [address] Performed By: #### 2 4323-8 ####[facility] LABCLIA [id number] [place] [address] [place] Sodium [Moles/Vol] 139 mmol/L Normal 136-144 [facility] Comment on above: Order Comment: Speci men Type: BLOOD SPECIMENOrdering Facility: [facility] Address: [address] [place] [address] Performed By: #### 2 4323-8 ####[facility] LABCLIA [id number] [place] [address] [place] Urea nitrogen [Mass/Vol] 20 mg/dL Normal 7-21 [facility] Comment on above: Order Comment: Speci men Type: BLOOD SPECIMENOrdering Facility: [facility] Address: [address] [place], [place] [id number] Performed By: #### 2 4323-8 ####[facility] LABCLIA [id number] [place] [id number] [place] PROTEIN ELECTROPHORESIS SERU M (P)on 08-09-2024 Albumin [Mass/Vol] 3.66 g/dL Normal 3.43-5.41 [facility] Comment on above: Order Comment: Speci men Type: BLOOD SPECIMENOrdering Facility: [facility] Address: [address] [place] [address] Performed By: #### L [id number] ####[facility] LABCLIA [id number] [place] [address] [place] Alpha 1 globulin Elph [Mass/Vol] 0.25 g/dL Normal 0.18-0.43 [facility] Comment on above: Order Comment: Speci men Type: BLOOD SPECIMENOrdering Facility: [facility] Address: [address] [place] [address] Performed By: #### L [id number] ####[facility] LABIA [id number] [place] [address] [place] Alpha 2 globulin Elph [Mass/Vol] 0.67 g/dL Normal 0.42-0.98 [facility] Comment on above: Order Comment: Speci men Type: BLOOD SPECIMENOrdering Facility: [facility] Address: [address] [place] [address] Performed By: #### L [id number] ####[facility] LABIA [id number] [place] [address] [place] Beta globulin Elph [Mass/Vol] 0.73 g/dL Normal 0.61-1.17 [facility] Comment on above: Order Comment: Speci men Type: BLOOD SPECIMENOrdering Facility: [facility] Address: [address] [place] [address] Performed By: #### L [id number] ####[facility] LABIA [id number] [place] [address] [place] Gamma globulin Elph [Mass/Vol] 0.89 g/dL Normal 0.53-1.51 [facility] Comment on above: Order Comment: Speci men Type: BLOOD SPECIMENOrdering Facility: [facility] Address: [address] [place] [address] Performed By: #### L [id number] ####[facility] LABIA [id number] [place] [address] [place] M-PROTEIN LOCATION Normal [facility] Comment on above: Order Comment: Speci men Type: BLOOD SPECIMENOrdering Facility: [facility] Address: [address] [place] [address] Result Comment: Not Applicable. Performed By: #### L [id number] ####[facility] LABIA [id number] [place] [address] [place] Protein Fractions [Interp] No definitive M protein is identified on protein electrophoresis. Normal No definitive M protein is identified on protein electrophor esis. [facility] Comment on above: Order Comment: Speci men Type: BLOOD SPECIMENOrdering Facility: [facility] Address: [address] [place] [address] Performed By: #### L [id number] ####[facility] [id number] [place] [address] [place] Protein.monoclonal Elph [Mass/Vol] 0.00 g/dL Normal <=0.00 [facility] Comment on above: Order Comment: Speci men Type: BLOOD SPECIMENOrdering Facility: [facility] Address: [address] [place] [address] Performed By: #### L [id number] ####[facility] LABIA [id number] [place] [address] [place] SPE STAFF REVIEW Reviewed by Dr. Glenys Pierre MD Normal [facility] Comment on above: Order Comment: Speci men Type: BLOOD SPECIMENOrdering Facility: [facility] Address: [address] [place] [address] Performed By: #### L [id number] ####[facility] LABIA [id number] [place] [address] [place] Prot SerPl-mCncon 12-23-2024 Protein [Mass/Vol] 6.2 g/dL Low 6.3-8.0 [facility] Comment on above: Order Comment: Speci men Type: BLOOD SPECIMENOrdering Facility: [facility] Address: [address] [place] [address] Performed By: #### 2 885-2, 2132-9 ####[facility] LABCLIA [id number] [place] [address] [place] VITAMIN B1 (THIAMINE), WHOLE BLOODon 08-09-2024 Thiamine (Bld) [Moles/Vol] 220.5 nmol/L High 84.3-213.3 [facility] Comment on above: Order Comment: Speci men Type: BLOOD SPECIMENOrdering Facility: [facility] Address: [address] [place] [address] Performed By: #### B 1WB ####[facility] LABCLIA [id number] [place] [address] [place] VITAMIN B6/PYRIDOXINon 08-09 VITAMIN B6 47.3 nmol/L Normal 20.0-125.0 [facility] Comment on above: Order Comment: Speci men Type: BLOOD SPECIMENOrdering Facility: [facility] Address: [address] [place] [address] Result Comment: INTE RPRETIVE INFORMATION: Vitamin B6 (Pyridoxal 5-Phosphate)Pyridoxal 5'-phosphate measured in a specimen collected followingan 8-hour or overnight fast accurately indicates vitamin S6jbkghxmkbyj status. Non-fasting specimen concentration reflectsrecent vitamin intake.This test was developed and its performance characteristicsdetermined by [employer]. It has not been cleared orapproved by the [place] Food and Drug Administration. This test wasperformed in a CLIA certified laboratory and is intended forclinical purposes.Performed By: [employer] [place] [id number] Director: Estelle Bravo MD, PhDCLIA Number: [id number] Performed By: #### V ITB6 ####[facility] [id number] [place] [address] Vit B12 [facility]Pl[facility] Cobalamin (Vitamin B12) [Mass/Vol] 1662 pg/mL High 232-1245 [facility] Comment on above: Order Comment: Speci men Type: BLOOD SPECIMENOrdering Facility: [facility] Address: [address] [place] [address] Performed By: #### 2 885-2, 2132-9 ####[facility] LABCLIA [id number] [place] [address] [place] CNOVon 08-06-2024 CNOV Normal [facility] CNOVon 08-03-2024 CNOV Normal [facility] ECG COMPLETEon 08-03-2024 Atrial Rate 75 BPM [facility] Calculated P [place] 42 degrees [facility] Calculated R [place] -38 degrees [facility] Calculated T [place] 49 degrees [facility] P-R Interval 188 ms [facility] QRS Duration 78 ms [facility] QT Interval 402 ms [facility] QTC Calculation (Bazett) 448 ms [facility] Ventricular Rate 75 BPM [facility] NAME : HUYEN ALCARAZ PID : [id number] : 1940 Gender : Female Race : ORD : [id number] Procedure Date : Aug 03 2024 15:41:45 Edit Date : Aug 03 2024 16:15:10 Diagnosis: NORMAL SINUS RHYTHM LEFT AXIS DEVIATION POOR R WAVE PROGRESSION INFERIOR MYOCARDIAL INFARCTION , AGE UNDETERMINED ABNORMAL ECG Confirmed by MD MARCIAL QARAB ([id number]), story editor TONYA IVEY ([id number]) on 08/03/2024 4:15:08 PM Test Reason : I25.2 H/O acute myocardial infarction Location : 137 : STCARD Overread By : MD MARCIAL QARAB Edited By : TONYA IVEY Referred By : ANILA DE PAZ Acquired by : , [facility] ECG COMPLETE Normal [facility] ANES POSTPROC EVALon 024 ANES POSTPROC EVAL Normal [facility] ANES PRE-OPon 07-21-2024 ANES PRE-OP Normal [facility] EGD Study observation Narrat iveon 07-21-2024 [facility] Radiology Study observation (narrative) [facility] NURSING PROGon 07-21-2024 NURSING PROG Normal [facility] NURSING PROG Normal [facility] Upper GI endoscopyon 024 Upper GI endoscopy Normal [facility] CNPNon 07-19-2024 CNPN Normal [facility] Knee 4 or More Viewson 07-19 Knee 4 or More Views [facility] Radiology [address] [place] [address] Knee 4 or More Views MR#: [id number] Acct: [id number] Name: LAUREN ALCARAZ Rep #: [id number] : 1940 F 83 From: Ezio East MD PCP: Status: DEP AMB Study: Knee 4 or More Views Date of Exam: 07/19/24 Exam# [id number] Ordering Dr: Christopher Turk DO [id number] STUDY: X-RAY - LEFT KNEE REASON FOR [...] EST , CC: Dr. Christopher Turk DO Computer Network And Systems Engineer: Signed Normal [facility] Orthopedic Visit Reporton Orthopedic Visit Report [facility] [address] [place] [address] OFFICE VISIT Date of Service: 07/19/24 MR#: [id number] Acct: [id number] Name: LAUREN ALCARAZ Rep #: [id number] : 1940 Provider: Dr. Christopher chan, DO Age/Sex: 83/F Location: [facility] Status: Signed Intake Vital [...] Other Medications ???Medication ???Instructions ???Recorded ???Confirmed ???Type L.acidophil-L.casei-B.bif id-B.longum-FOS 1 cap PO DAILY Supplement 09/02/21 07/19/24 [...] denosumab 60 mg/mL subcutaneous 60 mg subcut [id number] #1 mL 02/18/24 07/19/24 Rx syringe (Prolia) [...] in the past year?: No [facility] Medical History Open wound of [...] artery ( 1989) Atherosclerotic heart disease of teller coronary artery without angina pectoris Essential hypertension Influenza A Health care maintenance Fa (more content not included)... Normal [facility] HISTORY PHYSICALon 4 HISTORY PHYSICAL [facility] CNPNon 07-14-2024 CNPN Normal [facility] Orthopedic Visit Reporton Orthopedic Visit Report [facility] [address] [place] [address] OFFICE VISIT Date of Service: 07/12/24 MR#: [id number] Acct: [id number] Name: LAUREN ALCARAZ Rep #: [id number] : 1940 Provider: Dr. Christopher chan, Age/Sex: 83/F Location: [facility] Status: Signed Intake Vital [...] Other Medications ???Medication ???Instructions ???Recorded ???Confirmed ???Type L.acidophil-L.casei-B.bif id-B.longum-FOS 1 cap PO DAILY Supplement 09/02/21 07/12/24 [...] denosumab 60 mg/mL subcutaneous 60 mg subcut [id number] #1 mL 02/18/24 07/12/24 Rx syringe (Prolia) [...] tablet 10 mg PO DAILY #90 tabs 10/22/24 11/25/24 Rx lacosamide 100 mg tablet (Vimpat) 100 [...] in the past year?: Yes [facility] Medical History Open wound of [...] artery ( 1989) Atherosclerotic heart disease of teller coronary artery without angina pectoris Essential hypertension Influenza A Health care maintenance Falls frequently Cancer Depression Dementia Walker as ambulation aid Arthritis Bladder disease Low iron DVT (deep venous thrombosis) High cholesterol Restless legs Back pain TIA (transient ischemic attack) Seizures Difficulty swallowing Gastric reflux Non-smoker Asthma Shortness of breath on exertion Hx of echocardiogram Hist (more content not included)... Normal [facility] 07-07-2024 CNPN Normal [facility] MR/BMS.IMBon 07-07-2024 MR/BMS.IMB [facility] [address] [place] [address] OFFICE VISIT Date of Service: 07/07/24 MR#: [id number] Acct: [id number] Name: LAUREN ALCARAZ Rep #: [id number] : 1940 Provider: Dr. 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 Required: No Accompanied by: Self Is patient [...] Other Medications ???Medication ???Instructions ???Recorded ???Confirmed ???Type L.acidophil-L.casei-B.bif id-B.longum-FOS 1 cap PO DAILY Supplement 09/02/21 07/07/24 [...] denosumab 60 mg/mL subcutaneous 60 mg subcut [id number] #1 mL 02/18/24 07/07/24 Rx syringe (Prolia) [...] the past year?: Yes (06/28/2024) [facility] Medical History Open wound of [...] artery ( 1989) Atherosclerotic heart disease of teller coronary artery without angina pectoris Essential hypertension Influenza A Health care maintenance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 Ending Re-evaluation ending: Please do not hesitate to contact me at [phone] by phone or if you have questions or concerns regarding this new plan of care! Sincerely, RYAN MorseT, OCS, CSCS 03/04/24 1348 CC: Dr. Chema Perry MD EBG Signed For Medicare only, by signing this I certify the plan of care. ___ Physicians Signature Date Normal [facility] Office Visit Reporton 2023 Office Visit Report [facility] [address] [place] [address] OFFICE VISIT Date of Service: 02/23/24 MR#: [id number] Acct: [id number] Patient: LAUREN ALCARAZ Rep #: [id number] : 1940 Provider: IMB NURSE Age/Sex: 83/F Location: [facility] Status: Signed Intake Vital [...] Performing Provider: Chema Perry MD Performing Location: [facility] Administered by: Josselin Kat MA on 02/23/24 11:02 Dose Route Admin Location Dispensed Lot Number Expiration Date NDC Man ufacturer 1,000 mcg IM right delt 1 mL [id number] 06/18/25 25428-424-87 [facility] Comments: PT TOLERATED WELL. Assessment and Plan Assessment and Plan (1) Vitamin B 12 deficiency: Status: Acute Orders: Orders Vitamin B12 Today E53.8 - Deficiency of other specified B group vitamins Clinical Quality Measures Falls Risk Screening/Assistive Devices Have you fallen in the past year?: No 02/23/24 1548 Date Chema Perry MD [facility] Signature: Date (if applicable) CC: [facility] LAB TEST Normal [facility] Comment on above: Order Comment: Comme nts: SE antibodies [facility]:[id number] SER/RTGAD [id number] SER/RT Result Comment: TEST RESULTS LIMITS SE-65 Autoantibody SE-65 <5.0 U/mL 0.0-5.0 TESTING PERFORMED AT [facility]. ORIGINAL REPORT ON FILE IN LAB CONTAINS ADDITIONAL TEST SITE INFORMATION. Performed By: #### L 506.0400, L801.1541, L503.0105, L501.9520, L501.65593, L500.4050 ####[facility] [address] [place], [address] Comprehensive Metabolic Prof kson 02-12-2024 Albumin [Mass/Vol] 3.7 g/dL Normal 3.2-5.0 [facility] Comment on above: Order Comment: SE a ntibodies [facility]:[id number] Performed By: #### L 506.0400, L801.1541, L503.0105, L501.9520, L501.54623, L500.4050 ####[facility] [address] [place], [address] Albumin/Globulin [Mass ratio] 1.1 {ratio} Normal 0.9-2.4 [facility] Comment on above: Order Comment: SE a ntibodies [facility]:[id number] Performed By: #### L 506.0400, L801.1541, L503.0105, L501.9520, L501.06843, L500.4050 ####[facility] [address] [place], [address] ALK P 76 U/L Normal 45-117 [facility] Comment on above: Order Comment: SE a ntibodies [facility]:[id number] Performed By: #### L 506.0400, L801.1541, L503.0105, L501.9520, L501.55326, L500.4050 ####[facility] [address] [place], [address] ALT [Catalytic activity/Vol] 31 U/L Normal 13-56 [facility] Comment on above: Order Comment: SE a ntibodies [facility]:[id number] Performed By: #### L 506.0400, L801.1541, L503.0105, L501.9520, L501.05978, L500.4050 ####[facility] [address] [place], [address] AST [Catalytic activity/Vol] 24 U/L Normal 15-37 [facility] Comment on above: Order Comment: SE a ntibodies [facility]:[id number] Performed By: #### L 506.0400, L801.1541, L503.0105, L501.9520, L501.98584, L500.4050 ####[facility] [address] [place], [address] Bilirubin [Mass/Vol] 0.80 mg/dL Normal 0.20-1.00 [facility] Comment on above: Order Comment: SE a ntibodies [facility]:[id number] Result Comment: For patients on eltrombopag therapy, use of Dimension [place] TBIL is not recommended. Performed By: #### L 506.0400, L801.1541, L503.0105, L501.9520, L501.85803, L500.4050 ####[facility] [address] [place], [address] BUN/CRE 21.2 RATIO High 10-20 [facility] Comment on above: Order Comment: SE a ntibodies [facility]:[id number] Performed By: #### L 506.0400, L801.1541, L503.0105, L501.9520, L501.48891, L500.4050 ####[facility] [address] [place], [address] CA,Total 9.6 mg/dL Normal 8.5-10.1 [facility] Comment on above: Order Comment: SE a ntibodies [facility]:[id number] Performed By: #### L 506.0400, L801.1541, L503.0105, L501.9520, L501.42673, L500.4050 ####[facility] [address] [place], [address] Chloride [Moles/Vol] 103 mmol/L Normal 98-107 [facility] Comment on above: Order Comment: SE a ntibSeekSherpa [facility]:[id number] Performed By: #### L 506.0400, L801.1541, L503.0105, L501.9520, L501.78468, L500.4050 ####[facility] [address] [place], [address] CO2 [Moles/Vol] 30.0 mmol/L Normal 21.0-32.0 [facility] Comment on above: Order Comment: SE a ntibSeekSherpa [facility]:[id number] Performed By: #### L 506.0400, L801.1541, L503.0105, L501.9520, L501.62160, L500.4050 ####[facility] [address] [place], [address] Creatinine [Mass/Vol] 1.13 mg/dL High 0.55-1.02 [facility] Comment on above: Order Comment: SE a ntibSeekSherpa [facility]:[id number] Result Comment: The validity of the calculated GFR GFRAA in patients over 70 years has not been determined. Clinical correlation is essential. Performed By: #### L 506.0400, L801.1541, L503.0105, L501.9520, L501.36628, L500.4050 ####[facility] [address] [place], [address] EST GFR - AA 59 mL/min Low >60 [facility] Comment on above: Order Comment: SE a ntibSeekSherpa [facility]:[id number] Result Comment: Afri can [place] GFR Calc Performed By: #### L 506.0400, L801.1541, L503.0105, L501.9520, L501.37383, L500.4050 ####[facility] [address] [place], [address] GAP 7 Normal 5-15 [facility] Comment on above: Order Comment: SE a ntibSeekSherpa [facility]:[id number] Performed By: #### L 506.0400, L801.1541, L503.0105, L501.9520, L501.12336, L500.4050 ####[facility] [address] [place], [address] GFR/1.73 sq M.predicted among non-blacks MDRD (S/P/Bld) [Vol rate/Area] 49 mL/min/{1.73_m2} Low >60 [facility] Comment on above: Order Comment: SE a ntibSeekSherpa [facility]:[id number] Result Comment: Non- GFR Calc Performed By: #### L 506.0400, L801.1541, L503.0105, L501.9520, L501.60184, L500.4050 ####[facility] [address] [place], [address] Globulin (S) [Mass/Vol] 3.5 g/dL Normal 2.2-4.2 [facility] Comment on above: Order Comment: SE a ntibSeekSherpa [facility]:[id number] Performed By: #### L 506.0400, L801.1541, L503.0105, L501.9520, L501.05125, L500.4050 ####[facility] [address] [place], [address] Glucose [Mass/Vol] 106 mg/dL Normal 74-106 [facility] Comment on above: Order Comment: SE a ntibSeekSherpa [facility]:[id number] Result Comment: Fast ing Glucose result from 100 to 125 mg/dL suggests IMPAIRED HOMEOSTASIS per A.D.A. criteria. Performed By: #### L 506.0400, L801.1541, L503.0105, L501.9520, L501.65746, L500.4050 ####[facility] [address] [place], [address] Potassium [Moles/Vol] 3.6 mmol/L Normal 3.5-5.1 [facility] Comment on above: Order Comment: SE a ntibodies [facility]:[id number] Performed By: #### L 506.0400, L801.1541, L503.0105, L501.9520, L501.31119, L500.4050 ####[facility] [address] [place], [address] Sodium [Moles/Vol] 140 mmol/L Normal 136-145 [facility] Comment on above: Order Comment: SE a ntibodies [facility]:[id number] Performed By: #### L 506.0400, L801.1541, L503.0105, L501.9520, L501.48951, L500.4050 ####[facility] [address] [place], [address] T PROT 7.2 g/dL Normal 6.4-8.2 [facility] Comment on above: Order Comment: SE a ntibodies [facility]:[id number] Performed By: #### L 506.0400, L801.1541, L503.0105, L501.9520, L501.25657, L500.4050 ####[facility] [address] [place], [address] Urea nitrogen [Mass/Vol] 24 mg/dL High 7-18 [facility] Comment on above: Order Comment: SE a ntibodies [facility]:[id number] Performed By: #### L 506.0400, L801.1541, L503.0105, L501.9520, L501.10763, L500.4050 ####[facility] [address] [place], [address] Free T3on 02-12-2024 Free T3 [Mass/Vol] 1.8 pg/mL Low 2.18-3.98 [facility] Comment on above: Order Comment: SE kumar ntibodies [facility]:[id number] Performed By: #### L 506.0400, L801.1541, L503.0105, L501.9520, L501.31248, L500.4050 ####[facility] [address] [place], [address] T4 Free Directon 02-12-2024 T4 FREE DIRECT 1.12 ng/dL Normal 0.76-1.46 [facility] Comment on above: Order Comment: SE kumar ntibodies [facility]:[id number] Performed By: #### L 506.0400, L801.1541, L503.0105, L501.9520, L501.52507, L500.4050 ####[facility] [address] [place], [place], [address] Thyroid Stim Hormone (TSH)on 02-12-2024 TSH 1.45 uIU/mL Normal 0.358-3.74 [facility] Comment on above: Order Comment: SE kumar ntibodies [facility]:[id number] Performed By: #### L 506.0400, L801.1541, L503.0105, L501.9520, L501.14208, L500.4050 ####[facility] [address] [place], [address] Vitamin B12on 02-12-2024 Cobalamin (Vitamin B12) [Mass/Vol] 1092 pg/mL High 211-911 [facility] Comment on above: Performed By: #### L 506.0400, L801.1541, L503.0105, L501.9520, L501.27515, L500.4050 ####[facility] [address] [place], [address] MR/BMS.IMBon 02-11-2024 MR/BMS.IMB [facility] [address] [place] [address] OFFICE VISIT Date of Service: 02/11/24 MR#: [id number] Acct: [id number] Name: LAUREN ALCARAZ Rep #: [id number] : 1940 Provider: Dr. 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 Normal [facility] No Panel InformationOrdered By: Chema Perry on 10-14-2023 Free Triiodothyronine (T3) pg/dL 1.8 pg/mL 2.18-3.98 [facility] Serum or plasma thyroid stim ulating hormone (TSH) measurement (units/volume)Ordered By: Chema Perry on 10-14-2023 TSH Qn 1.27 uIU/mL 0.358-3.74 [facility] Thin prep Papanicolaou smear with manual screeningOrdered By: Chema Perry on 10-14-2023 Thin prep Papanicolaou smear with manual screening 1.20 ng/dL 0.76-1.46 [facility] Laboratory - Chemistry and C hemistry - challengeOrdered By: Chema Perry on 04-22-2023 Free T4 [Mass/Vol] 1.33 ng/dL 0.76-1.46 [facility] No Panel InformationOrdered By: Chema Perry on 04-22-2023 Free Triiodothyronine (T3) pg/dL 1.9 pg/mL 2.18-3.98 [facility] Thyroid Stimulating Hormone (TSH) 3.33 uIU/mL 0.358-3.74 [facility] Laboratory - Chemistry and C hemistry - challengeOrdered By: Dr. Perry on 01-15-2023 Free T4 [Mass/Vol] 1.10 ng/dL 0.76-1.46 [facility] No Panel InformationOrdered By: Dr. Perry on 01-15-2023 Free Triiodothyronine (T3) pg/dL 1.7 pg/mL 2.18-3.98 [facility] Thyroid Stimulating Hormone (TSH) 1.63 uIU/mL 0.358-3.74 [facility] MR Brain WO contraston 12-04 * * *Final Report* * * DATE OF EXAM: Dec 04 2022 2:13PM [facility] 3015 - MRI BRAIN W QUANT WO [...] Prior intracranial hemorrhage: Parenchymal microhemorrhages: 0 Other (siderosis/macrohemorrhag es (>10mm): Not Applicable Amyloid Related Imaging Abnormalities: [...] DATE OF EXAM: Dec 04 2022 2:13PM [facility] 3015 - MRI BRAIN W QUANT WO IVCON / PROCEDURE REASON: Dementia without behavioral disturbance (HCC) * * * * Physician Interpretation * * * * EXAMINATION: MRI BRAIN W QUANT WO IVCON, MRI 3D POST PROCESSING CLINICAL HISTORY: Dementia without behavioral disturbance TECHNIQUE: Axial RFED FLAIR, FRED T2, diffusion and susceptibility weighted imaging without contrast, using the ADNI dementia protocol and 3-D post-processing using the virtual [employer] software at an independent workstation with concurrent physician supervision and images were created, reviewed and archived. MQ: [email or web address]_1 COMPARISON: None RESULT: QUALITATIVE: Acute Intracranial Process: None. Chronic Intracranial Process: Moderate chronic microvascular ischemic change.. Age related white matter changes (ARW[facility]) rating: White matter lesions: 2 Basal ganglia lesions: 0 Prior intracranial hemorrhage: Parenchymal microhemorrhages: 0 Other (siderosis/macrohemorrhag es (>10mm): Not Applicable Amyloid Related Imaging Abnormalities: [...] = Focal Lesions 2 = Beginning of [place] 3 = Diffuse Involvement of Entire Region [...] results from the analysis charts for details. Computer Network And Systems Engineer: ARTHUR Transcribe Date/Time: Dec 04 2022 2:45P Dictated by : SUSAN LOMELI MD This examination was interpreted and the report reviewed and electronically signed by: SUSAN LOMELI MD on Dec 04 2022 3:20PM [facility] MR Unspecified body region 3 D post processingon 12-04-2022 * * *Final Report* * * DATE OF EXAM: Dec 04 2022 2:13PM [facility] 0280 - MRI 3D POST PROCESSING / [...] dementia protocol and 3-D post-processing using the virtual tweens [employer] software at an independent workstation with concurrent physician supervision and images were created, reviewed and archived. MQ: [email or web address]_1 COMPARISON: None RESULT: QUALITATIVE: Acute Intracranial Process: None. Chronic Intracranial Process: Moderate chronic microvascular ischemic change.. Age related white matter changes (ARWMC) rating: White matter lesions: 2 Basal ganglia lesions: 0 Prior intracranial hemorrhage: Parenchymal microhemorrhages: 0 Other (siderosis/macrohemorrhag es (>10mm): Not Applicable Amyloid Related Imaging Abnormalities: [...] DATE OF EXAM: Dec 04 2022 2:13PM [facility] 0280 - MRI 3D POST PROCESSING / [...] dementia protocol and 3-D post-processing using the virtual tweens [employer] software at an independent workstation with concurrent physician supervision and images were created, reviewed and archived. MQ: [email or web address]_1 COMPARISON: None RESULT: QUALITATIVE: Acute Intracranial Process: None. Chronic Intracranial Process: Moderate chronic microvascular ischemic change.. Age related white matter changes (ARWMC) rating: White matter lesions: 2 Basal ganglia lesions: 0 Prior intracranial hemorrhage: Parenchymal microhemorrhages: 0 Other (siderosis/macrohemorrhag es (>10mm): Not Applicable Amyloid Related Imaging Abnormalities: [...] = Focal Lesions 2 = Beginning of [place] 3 = Diffuse Involvement of Entire Region [...] results from the analysis charts for details. Computer Network And Systems Engineer: ARTHUR Transcribe Date/Time: Dec 04 2022 2:45P Dictated by : SUSAN LOMELI MD This examination was interpreted and the report reviewed and electronically signed by: SUSAN LOMELI MD on Dec 04 2022 3:20PM [facility] No Panel Informationon 12-04 IMPRESSION: * No [...] = Focal Lesions 2 = Beginning of [place] 3 = Diffuse Involvement of Entire Region [...] Applicable to MRI and CT. Stroke. 32:1318 (2000). * Asymmetry index defined as difference between left and right volumes divided by mean or [(L-R/Mean) x 100] (%). Age-matched reference charts measure total hippocampal volume (% of intracranial volume). See results from the analysis charts for details. Computer Network And Systems Engineer: ARTHUR Transcribe Date/Time: Dec 04 2022 2:45P Dictated by : SUSAN LOMELI MD This examination was interpreted and the report reviewed and electronically signed by: SUSAN LOMELI MD on Dec 04 2022 3:20PM [facility] DIVISION OF RADIOLOGY Radiology Study observation (narrative) [facility] No Panel InformationOrdered By: Ccf Provider on 12-04-2022 [facility] [facility] Absolute lymphocyte countOrd ered By: Dr. Perry on 12-03-2022 Lymphocytes Auto (Unsp spec) [#/Vol] 1.62 10*3/uL 0.83-4.51 [facility] Basophil percentageOrdered B y: Dr. Perry on 12-03-2022 Basophils/100 WBC (Bld) 0.7 % 0-1 [facility] Bilirubin [Mass/Vol] 0.60 mg/dL 0.20-1.00 [facility] Comment on above: For patients on eltr ombopag therapy, use of Dimension [place] TBIL is not recommended. Chloride [Moles/Vol] 107 mmol/L 98-107 [facility] Cholesterol [Mass/Vol] 124 mg/dL <200 [facility] Comment on above: <200 mg/dL Desirable 200-240 mg/dL Borderline >240 mg/dL High Risk Eosinophils/100 WBC (Bld) 3.0 % 0-5 [facility] Glucose [Mass/Vol] 101 mg/dL 74-106 [facility] Comment on above: Fasting Glucose resu lt from 100 to 125 mg/dL suggests IMPAIRED HOMEOSTASIS per A.D.A. criteria. Neutrophils (Bld) [#/Vol] 3.5 10*3/uL 2.0-7.7 [facility] Neutrophils/100 WBC (Bld) 61.8 % 47-70 [facility] Potassium [Moles/Vol] 3.7 mmol/L 3.5-5.1 [facility] Protein [Mass/Vol] 7.1 g/dL 6.4-8.2 [facility] Sodium [Moles/Vol] 137 mmol/L 136-145 [facility] Triglyceride [Mass/Vol] 132 mg/dL <199 [facility] Comment on above: The drugs N-Acetylcy steine and Metamizole may falsely depress this assay.Serum Triglycerides Reference Interval Normal <150 mg/dL Borderline high 150 - 199 mg/dL High 200 - 499 mg/dL Very High > or = 500 mg/dL WBC (Bld) [#/Vol] 5.7 10*3/uL 4.4-11.0 [facility] Blood erythrocytes count (nu mber/volume)Ordered By: Dr. Perry on 12-03-2022 RBC (Bld) [#/Vol] 4.50 10*6/uL 4.2-5.4 [facility] Blood hemoglobin measurement (mass/volume)Ordered By: Dr. Perry on 12-03-2022 Hemoglobin (Bld) [Mass/Vol] 12.1 g/dL 12.0-15.0 [facility] Blood lymphocytes/100 leukoc ytesOrdered By: Dr. Prery on 12-03-2022 Lymphocytes/100 WBC (Bld) 28.5 % 19-41 [facility] Blood monocytes/100 leukocyt esOrdered By: Dr. Perry on 12-03-2022 Monocytes/100 WBC (Bld) 5.8 % 0-10 [facility] Blood platelet mean volumeOr dered By: Dr. Perry on 12-03-2022 Platelet mean volume (Bld) [Entitic vol] 10.2 fL 6.2-12.0 [facility] Determination of erythrocyte mean corpuscular volume (MCV)Ordered By: Dr. Perry on 12-03-2022 MCV (RBC) [Entitic vol] 86.0 fL 81-99 [facility] Hematocrit Auto (Bld) [Volum e fraction]Ordered By: Dr. Perry on 12-03-2022 Hematocrit (Bld) [Volume fraction] 38.7 % 37-47 [facility] Laboratory - Chemistry and C hemistry - challengeOrdered By: Dr. Perry on 12-03-2022 ALP [Catalytic activity/Vol] 70 U/L 45-117 [facility] ALT [Catalytic activity/Vol] 24 U/L 13-56 [facility] CO2 [Moles/Vol] 25.0 mmol/L 21.0-32.0 [facility] Cobalamin (Vitamin B12) [Mass/Vol] 1344 pg/mL 211-911 [facility] Free T4 [Mass/Vol] 1.23 ng/dL 0.76-1.46 [facility] Globulin (S) [Mass/Vol] 3.5 g/dL 2.2-4.2 [facility] Urea nitrogen/Creatinine [Mass ratio] 25.5 mg/mg 10-20 [facility] Laboratory - Hematology and Cell countsOrdered By: Dr. Perry on 12-03-2022 Erythrocyte distribution width (RBC) [Entitic vol] 51.3 fL 35.1-43.9 [facility] Erythrocyte distribution width (RBC) [Ratio] 16.1 % 11.6-14.6 [facility] Immature granulocytes/100 WBC (Bld) 0.200 % 0.0-0.9 [facility] Comment on above: IG% - Immature Granu locytes (promyelocytes, myelocytes and metamyelocytes) > 1% indicates that a LEFT SHIFT is Present. MCH (RBC) [Entitic mass] 26.9 pg 27.0-32.0 [facility] Nucleated RBC/100 WBC (Bld) [Ratio] 0 % 0-5 [facility] MCHC Auto (RBC) [Mass/Vol]Or dered By: Dr. Perry on 12-03-2022 MCHC (RBC) [Mass/Vol] 31.3 g/dL 32-36 [facility] No Panel InformationOrdered By: Dr. Perry on 12-03-2022 Estimated GFR (MDRD) Amer 86 mL/min >60 [facility] Comment on above: GFR Calc Estimated GFR (MDRD) Non-Af Amer 71 mL/min >60 [facility] Comment on above: Non- GFR Calc Free Triiodothyronine (T3) pg/dL 1.9 pg/mL 2.18-3.98 [facility] Thyroid Stimulating Hormone (TSH) 5.10 uIU/mL 0.358-3.74 [facility] Vitamin D 25-Hydroxy 54.4 ng/mL [facility] Comment on above: Vitamin D 25(OH) Sta tus Range Deficiency <20 ng/mL (50nmol/L) Insufficiency 20 - 30 ng/mL (50 - 75 nmol/L) Sufficiency 30 - 100 ng/mL (75 - 250 nmol/L) Toxicity >100 ng/mL (>250 nmol/L) Platelets bldOrdered By: Dr. Perry on 12-03-2022 Platelets (Bld) [#/Vol] 244 10*3/uL 150-450 [facility] Serum or plasma albumin osiris urement (mass/volume)Ordered By: Dr. Perry on 12-03-2022 Albumin [Mass/Vol] 3.6 g/dL 3.2-5.0 [facility] Serum or plasma albumin/glob ulin mass ratioOrdered By: Dr. Perry on 12-03-2022 Albumin/Globulin [Mass ratio] 1.0 {ratio} 0.9-2.4 [facility] Serum or plasma calcium osriis urement (mass/volume)Ordered By: Dr. Perry on 12-03-2022 Calcium [Mass/Vol] 8.7 mg/dL 8.5-10.1 [facility] Serum or plasma cholesterol in HDL measurement (mass/volume)Ordered By: Dr. Perry on 12-03-2022 Cholesterol in HDL [Mass/Vol] 42 mg/dL >40 [facility] Comment on above: The drugs N-Acetylcy steine and Metamizole may falsely depress this assay. Reference Range HDL <40 mg/dL Low HDL Cholesterol HDL >or= 60 mg/dL High HDL Cholesterol Serum or plasma cholesterol in VLDL measurement (mass/volume)Ordered By: Dr. Perry on 12-03-2022 Cholesterol in VLDL [Mass/Vol] 26 mg/dL 5-40 [facility] Serum or plasma creatinine m easurement (mass/volume)Ordered By: Dr. Perry on 12-03-2022 Creatinine [Mass/Vol] 0.82 mg/dL 0.55-1.02 [facility] Comment on above: The validity of the calculated GFR & GFRAA in patients over 70 years has not been determined. Clinical correlation is essential. Serum or plasma low density lipoprotein (LDL) cholesterol measurement (mass/volume)Ordered By: Dr. Perry on 12-03-2022 Cholesterol in LDL [Mass/Vol] 56 mg/dL 0-130 [facility] Serum or plasma urea nitroge n measurement (mass/volume)Ordered By: Dr. Perry on 12-03-2022 Urea nitrogen [Mass/Vol] 21 mg/dL 7-18 [facility] Thin prep Papanicolaou smear with manual screeningOrdered By: Dr. Perry on 12-03-2022 Thin prep Papanicolaou smear with manual screening 23 U/L 15-37 [facility] Thin prep Papanicolaou smear with manual screening 5 5-15 [facility] No Panel Informationon 10-23 POC SARS CoV-2 Antigen Negative [facility] Basophil percentageOrdered B y: Dr. Perry on 07-12-2022 Basophil percentage < 0.9 mg/dL 0.55-1.02 [facility] No Panel InformationOrdered By: Dr. Perry on 07-12-2022 Bedside Estimated GFR (eGFR) > 60.0000 mL/min >60 [facility] Laboratory - Microbiology an d Antimicrobial susceptibilityon 07-07-2022 SARS-CoV-2 (COVID-19) RNA LÁZARO+probe Ql (Unsp spec) Not detected [facility] No Panel Informationon 07-07 Influenza Types A,B Rapid (Clinic) Not detected [facility] Absolute lymphocyte counton 03-07-2022 Lymphocytes Auto (Unsp spec) [#/Vol] 2.14 10*3/uL 0.83-4.51 [facility] Work Phone: Basophil percentageon 2021 Basophils/100 WBC (Bld) 0.9 % 0-1 [facility] Work Phone: Bilirubin [Mass/Vol] 0.60 mg/dL 0.20-1.00 [facility] Work Phone: Comment on above: For patients on eltr ombopag therapy, use of Dimension [place] TBIL is not recommended. Chloride [Moles/Vol] 108 mmol/L 98-107 [facility] Work Phone: Eosinophils/100 WBC (Bld) 2.6 % 0-5 [facility] Work Phone: [phone] Glucose [Mass/Vol] 92 mg/dL 74-106 [facility] Work Phone: [phone] Neutrophils (Bld) [#/Vol] 3.7 10*3/uL 2.0-7.7 [facility] Work Phone: [phone] Neutrophils/100 WBC (Bld) 57.3 % 47-70 [facility] Work Phone: [phone] Potassium [Moles/Vol] 4.3 mmol/L 3.5-5.1 [facility] Work Phone: [phone] Protein [Mass/Vol] 7.3 g/dL 6.4-8.2 [facility] Work Phone: [phone] Sodium [Moles/Vol] 137 mmol/L 136-145 [facility] Work Phone: WBC (Bld) [#/Vol] 6.5 10*3/uL 4.4-11.0 [facility] Work Phone: Blood erythrocytes count (nu mber/volume)on 03-07-2022 RBC (Bld) [#/Vol] 4.68 10*6/uL 4.2-5.4 [facility] Work Phone: Blood hemoglobin measurement (mass/volume)on 03-07-2022 Hemoglobin (Bld) [Mass/Vol] 13.6 g/dL 12.0-15.0 [facility] Work Phone: [phone] Blood lymphocytes/100 leukoc yteson 03-07-2022 Lymphocytes/100 WBC (Bld) 32.9 % 19-41 [facility] Work Phone: [phone] Blood monocytes/100 leukocyt eson 03-07-2022 Monocytes/100 WBC (Bld) 6.0 % 0-10 [facility] Work Phone: [phone] Blood platelet mean volumeon 03-07-2022 Platelet mean volume (Bld) [Entitic vol] 11.1 fL 6.2-12.0 [facility] Work Phone: Determination of erythrocyte mean corpuscular volume (MCV)on 03-07-2022 MCV (RBC) [Entitic vol] 89.1 fL 81-99 [facility] Work Phone: Hematocrit Auto (Bld) [Volum e fraction]on 03-07-2022 Hematocrit (Bld) [Volume fraction] 41.7 % 37-47 [facility] Work Phone: Laboratory - Chemistry and C hemistry - challengeon 03-07-2022 ALP [Catalytic activity/Vol] 74 U/L 45-117 [facility] Work Phone: ALT [Catalytic activity/Vol] 17 U/L 13-56 [facility] Work Phone: CO2 [Moles/Vol] 23.0 mmol/L 21.0-32.0 [facility] Work Phone: Globulin (S) [Mass/Vol] 3.7 g/dL 2.2-4.2 [facility] Work Phone: Urea nitrogen/Creatinine [Mass ratio] 15.7 mg/mg 10-20 [facility] Work Phone: Laboratory - Hematology and Cell countson 03-07-2022 Erythrocyte distribution width (RBC) [Entitic vol] 43.3 fL 35.1-43.9 [facility] Work Phone: Erythrocyte distribution width (RBC) [Ratio] 13.2 % 11.6-14.6 [facility] Work Phone: Immature granulocytes/100 WBC (Bld) 0.300 % 0.0-0.9 [facility] Work Phone: Comment on above: IG% - Immature Granu locytes (promyelocytes, myelocytes and metamyelocytes) > 1% indicates that a LEFT SHIFT is Present. MCH (RBC) [Entitic mass] 29.1 pg 27.0-32.0 [facility] Work Phone: Nucleated RBC/100 WBC (Bld) [Ratio] 0 % 0-5 [facility] Work Phone: MCHC Auto (RBC) [Mass/Vol]on 03-07-2022 MCHC (RBC) [Mass/Vol] 32.6 g/dL 32-36 [facility] Work Phone: No Panel Informationon 03-07 Estimated GFR (MDRD) Amer 63 mL/min >60 [facility] Work Phone: Comment on above: GFR Calc Estimated GFR (MDRD) Non-Af Amer 52 mL/min >60 [facility] Work Phone: Comment on above: Non- GFR Calc Thyroid Stimulating Hormone (TSH) 2.09 uIU/mL 0.358-3.74 [facility] Work Phone: Vitamin D 25-Hydroxy 37.8 ng/mL [facility] Work Phone: Comment on above: Vitamin D 25(OH) Sta tus Range Deficiency <20 ng/mL (50nmol/L) Insufficiency 20 - 30 ng/mL (50 - 75 nmol/L) Sufficiency 30 - 100 ng/mL (75 - 250 nmol/L) Toxicity >100 ng/mL (>250 nmol/L) Platelets bldon 03-07-2022 Platelets (Bld) [#/Vol] 220 10*3/uL 150-450 [facility] Work Phone: Serum or plasma albumin osiris urement (mass/volume)on 03-07-2022 Albumin [Mass/Vol] 3.6 g/dL 3.2-5.0 [facility] Work Phone: Serum or plasma albumin/glob ulin mass ratioon 03-07-2022 Albumin/Globulin [Mass ratio] 1.0 {ratio} 0.9-2.4 [facility] Work Phone: Serum or plasma calcium osiris urement (mass/volume)on 03-07-2022 Calcium [Mass/Vol] 8.7 mg/dL 8.5-10.1 [facility] Work Phone: Serum or plasma creatinine m easurement (mass/volume)on 03-07-2022 Creatinine [Mass/Vol] 1.08 mg/dL 0.55-1.02 [facility] Work Phone: Comment on above: The validity of the calculated GFR & GFRAA in patients over 70 years has not been determined. Clinical correlation is essential. Serum or plasma urea nitroge n measurement (mass/volume)on 03-07-2022 Urea nitrogen [Mass/Vol] 17 mg/dL 7-18 [facility] Work Phone: Thin prep Papanicolaou smear with manual screeningon 03-07-2022 Thin prep Papanicolaou smear with manual screening 15 U/L 15-37 [facility] Work Phone: Thin prep Papanicolaou smear with manual screening 6 5-15 [facility] Work Phone: No Panel Informationon 02-25 Homocysteine 11.6 umol/L 3.2-10.7 [facility] Work Phone: Serum or plasma methylmalona te measurement (moles/volume)on 02-25-2022 Methylmalonate [Moles/Vol] 214 nmol/L 0-378 [facility] Work Phone: Comment on above: Performed at: [address] [id number] Director: Leanna Muse MD, Phone: [phone] Absolute lymphocyte counton 02-15-2022 Lymphocytes Auto (Unsp spec) [#/Vol] 0.52 10*3/uL 0.83-4.51 [facility] Work Phone: Basophil percentageon 2021 Basophil percentage 0-5 SEEN /hpf 0-5 [facility] Work Phone: Basophils/100 WBC (Bld) 0.3 % 0-1 [facility] Work Phone: Chloride [Moles/Vol] 108 mmol/L 98-107 [facility] Work Phone: Eosinophils/100 WBC (Bld) 0.7 % 0-5 [facility] Work Phone: Glucose [Mass/Vol] 100 mg/dL 74-106 [facility] Work Phone: Comment on above: Fasting Glucose resu lt from 100 to 125 mg/dL suggests IMPAIRED HOMEOSTASIS per A.D.A. criteria. Neutrophils (Bld) [#/Vol] 4.9 10*3/uL 2.0-7.7 [facility] Work Phone: Neutrophils/100 WBC (Bld) 85.0 % 47-70 [facility] Work Phone: Potassium [Moles/Vol] 3.9 mmol/L 3.5-5.1 [facility] Work Phone: Sodium [Moles/Vol] 137 mmol/L 136-145 [facility] Work Phone: WBC (Bld) [#/Vol] 5.8 10*3/uL 4.4-11.0 [facility] Work Phone: Bilirubin Test strip Ql (U)o n 02-15-2022 Bilirubin Ql (U) Negative Negative [facility] Work Phone: Blood erythrocytes count (nu mber/volume)on 02-15-2022 RBC (Bld) [#/Vol] 4.99 10*6/uL 4.2-5.4 [facility] Work Phone: Blood hemoglobin measurement (mass/volume)on 02-15-2022 Hemoglobin (Bld) [Mass/Vol] 14.4 g/dL 12.0-15.0 [facility] Work Phone: Blood lymphocytes/100 leukoc yteson 02-15-2022 Lymphocytes/100 WBC (Bld) 8.9 % 19-41 [facility] Work Phone: Blood manual differential co mment interpretation (narrative result)on 02-15-2022 Manual differential comment Jd (Bld) [Interp] See comment [facility] Work Phone: Comment on above: LYMPHOPENIA NOTED Blood monocytes/100 leukocyt eson 02-15-2022 Monocytes/100 WBC (Bld) 4.8 % 0-10 [facility] Work Phone: Blood platelet adequacy dete ction by light microscopyon 02-15-2022 Platelets LM Ql (Bld) ADEQUATE ADEQ [facility] Work Phone: Blood platelet mean volumeon 02-15-2022 Platelet mean volume (Bld) [Entitic vol] 10.8 fL 6.2-12.0 [facility] Work Phone: Determination of erythrocyte mean corpuscular volume (MCV)on 02-15-2022 MCV (RBC) [Entitic vol] 88.2 fL 81-99 [facility] Work Phone: Hematocrit Auto (Bld) [Volum e fraction]on 02-15-2022 Hematocrit (Bld) [Volume fraction] 44.0 % 37-47 [facility] Work Phone: Ketones Test strip Ql (U)on 02-15-2022 Ketones Ql (U) Negative Negative [facility] Work Phone: Laboratory - Chemistry and C hemistry - challengeon 02-15-2022 CO2 [Moles/Vol] 22.0 mmol/L 21.0-32.0 [facility] Work Phone: Urea nitrogen/Creatinine [Mass ratio] 15.1 mg/mg 10-20 [facility] Work Phone: Laboratory - Hematology and Cell countson 02-15-2022 Erythrocyte distribution width (RBC) [Entitic vol] 41.2 fL 35.1-43.9 [facility] Work Phone: Erythrocyte distribution width (RBC) [Ratio] 12.7 % 11.6-14.6 [facility] Work Phone: Immature granulocytes/100 WBC (Bld) 0.300 % 0.0-0.9 [facility] Work Phone: Comment on above: IG% - Immature Granu locytes (promyelocytes, myelocytes and metamyelocytes) > 1% indicates that a LEFT SHIFT is Present. MCH (RBC) [Entitic mass] 28.9 pg 27.0-32.0 [facility] Work Phone: Nucleated RBC/100 WBC (Bld) [Ratio] 0 % 0-5 [facility] Work Phone: MCHC Auto (RBC) [Mass/Vol]on 02-15-2022 MCHC (RBC) [Mass/Vol] 32.7 g/dL 32-36 [facility] Work Phone: Mucus LM Ql (Urine sed)on Mucus Ql (Urine sed) 0 SEEN /hpf [facility] Work Phone: Nitrite Test strip Ql (U)on 02-15-2022 Nitrite Ql (U) Positive Negative [facility] Work Phone: No Panel Informationon 02-15 Estimated Creatinine Clearance Calc 40.33 ml/min [facility] Work Phone: Estimated GFR (MDRD) Amer 99 mL/min >60 [facility] Work Phone: Comment on above: GFR Calc Estimated GFR (MDRD) Non-Af Amer 82 mL/min >60 [facility] Work Phone: Comment on above: Non- GFR Calc Platelets bldon 02-15-2022 Platelets (Bld) [#/Vol] 169 10*3/uL 150-450 [facility] Work Phone: Protein Test strip Ql (U)on 02-15-2022 Protein Ql (U) Negative Negative [facility] Work Phone: RBC morphologyon 02-15-2022 RBC morphology finding Nom (Bld) NORM C+C NORMAL NORM C&C [facility] Work Phone: Serum or plasma calcium osiris urement (mass/volume)on 02-15-2022 Calcium [Mass/Vol] 8.1 mg/dL 8.5-10.1 [facility] Work Phone: Serum or plasma creatinine m easurement (mass/volume)on 02-15-2022 Creatinine [Mass/Vol] 0.73 mg/dL 0.55-1.02 [facility] Work Phone: Comment on above: The validity of the calculated GFR & GFRAA in patients over 70 years has not been determined. Clinical correlation is essential. Serum or plasma urea nitroge n measurement (mass/volume)on 02-15-2022 Urea nitrogen [Mass/Vol] 11 mg/dL 7-18 [facility] Work Phone: Squamous epithelial cells de tection in urine sediment by light microscopyon 02-15-2022 Epithelial cells.squamous LM Ql (Urine sed) 0 SEEN /hpf 5-10 [facility] Work Phone: Thin prep Papanicolaou smear with manual screeningon 02-15-2022 Thin prep Papanicolaou smear with manual screening 7 5-15 [facility] Work Phone: Urine blood detectionon 07- RBC Ql (U) 25 /ul Negative [facility] Work Phone: RBC Ql (U) 0 SEEN /hpf 0-5 [facility] Work Phone: Urine clarityon 02-15-2022 Clarity (U) Clear Clear [facility] Work Phone: Urine color determinationon 02-15-2022 Color (U) Yellow Yellow [facility] Work Phone: Urine glucose detectionon Glucose Ql (U) Normal mg/dl Normal [facility] Work Phone: Urine leukocyte esterase det ection by dipstickon 02-15-2022 Leukocyte esterase Test strip Ql (U) 25 /ul Negative [facility] Work Phone: Urine pHon 02-15-2022 pH (U) 6.0 [pH] 5.0 - 8.0 [facility] Work Phone: Urine sediment bacteria coun t by microscopy (number/high power field)on 02-15-2022 Bacteria LM.HPF (Urine sed) [#/Area] 2 /[HPF] None Seen [facility] Work Phone: Urine specific gravity measu rementon 02-15-2022 Specific gravity (U) [Rel density] 1.010 1.002-1.030 [facility] Work Phone: Urobilinogen Auto test strip Ql (U)on 02-15-2022 Urobilinogen Ql (U) Normal mg/dl Normal [facility] Work Phone: Iron measurement (mass/mass) on 02-14-2022 Iron (Unsp spec) [Mass/Mass] 73 ug/dL 50-170 [facility] Work Phone: Laboratory - Chemistry and C hemistry - challengeon 02-14-2022 Cobalamin (Vitamin B12) [Mass/Vol] 318 pg/mL 211-911 [facility] Work Phone: Absolute lymphocyte counton 11-23-2021 Lymphocytes Auto (Unsp spec) [#/Vol] 1.90 10*3/uL 0.83-4.51 [facility] Work Phone: Basophil percentageon 2021 Basophils/100 WBC (Bld) 0.3 % 0-1 [facility] Work Phone: Bilirubin [Mass/Vol] 1.70 mg/dL 0.20-1.00 [facility] Work Phone: Comment on above: For patients on eltr ombopag therapy, use of Dimension [place] TBIL is not recommended. Chloride [Moles/Vol] 105 mmol/L 98-107 [facility] Work Phone: Eosinophils/100 WBC (Bld) 0.3 % 0-5 [facility] Work Phone: Glucose [Mass/Vol] 101 mg/dL 74-106 [facility] Work Phone: [phone] Comment on above: Fasting Glucose resu lt from 100 to 125 mg/dL suggests IMPAIRED HOMEOSTASIS per A.D.A. criteria. Neutrophils (Bld) [#/Vol] 10.2 10*3/uL 2.0-7.7 [facility] Work Phone: Neutrophils/100 WBC (Bld) 78.9 % 47-70 [facility] Work Phone: Potassium [Moles/Vol] 3.6 mmol/L 3.5-5.1 [facility] Work Phone: Protein [Mass/Vol] 7.5 g/dL 6.4-8.2 [facility] Work Phone: Sodium [Moles/Vol] 135 mmol/L 136-145 [facility] Work Phone: [phone] WBC (Bld) [#/Vol] 12.9 10*3/uL 4.4-11.0 [facility] Work Phone: Blood erythrocytes count (nu mber/volume)on 11-23-2021 RBC (Bld) [#/Vol] 4.29 10*6/uL 4.2-5.4 [facility] Work Phone: Blood hemoglobin measurement (mass/volume)on 11-23-2021 Hemoglobin (Bld) [Mass/Vol] 13.0 g/dL 12.0-15.0 [facility] Work Phone: [phone] Blood lymphocytes/100 leukoc yteson 11-23-2021 Lymphocytes/100 WBC (Bld) 14.7 % 19-41 [facility] Work Phone: [phone] Blood monocytes/100 leukocyt eson 11-23-2021 Monocytes/100 WBC (Bld) 5.3 % 0-10 [facility] Work Phone: Blood platelet mean volumeon 11-23-2021 Platelet mean volume (Bld) [Entitic vol] 11.3 fL 6.2-12.0 [facility] Work Phone: Determination of erythrocyte mean corpuscular volume (MCV)on 11-23-2021 MCV (RBC) [Entitic vol] 93.2 fL 81-99 [facility] Work Phone: Hematocrit Auto (Bld) [Volum e fraction]on 11-23-2021 Hematocrit (Bld) [Volume fraction] 40.0 % 37-47 [facility] Work Phone: Laboratory - Chemistry and C hemistry - challengeon 11-23-2021 ALP [Catalytic activity/Vol] 139 U/L 45-117 [facility] Work Phone: ALT [Catalytic activity/Vol] 15 U/L 13-56 [facility] Work Phone: CO2 [Moles/Vol] 21.0 mmol/L 21.0-32.0 [facility] Work Phone: Globulin (S) [Mass/Vol] 4.5 g/dL 2.2-4.2 [facility] Work Phone: Urea nitrogen/Creatinine [Mass ratio] 20.4 mg/mg 10-20 [facility] Work Phone: Laboratory - Hematology and Cell countson 11-23-2021 Erythrocyte distribution width (RBC) [Entitic vol] 45.5 fL 35.1-43.9 [facility] Work Phone: Erythrocyte distribution width (RBC) [Ratio] 13.3 % 11.6-14.6 [facility] Work Phone: Immature granulocytes/100 WBC (Bld) 0.500 % 0.0-0.9 [facility] Work Phone: Comment on above: IG% - Immature Granu locytes (promyelocytes, myelocytes and metamyelocytes) > 1% indicates that a LEFT SHIFT is Present. MCH (RBC) [Entitic mass] 30.3 pg 27.0-32.0 [facility] Work Phone: Nucleated RBC/100 WBC (Bld) [Ratio] 0 % 0-5 [facility] Work Phone: MCHC Auto (RBC) [Mass/Vol]on 11-23-2021 MCHC (RBC) [Mass/Vol] 32.5 g/dL 32-36 [facility] Work Phone: No Panel Informationon 11-23 Estimated GFR (MDRD) Amer 80 mL/min >60 [facility] Work Phone: Comment on above: GFR Calc Estimated GFR (MDRD) Non-Af Amer 66 mL/min >60 [facility] Work Phone: Comment on above: Non- GFR Calc Thyroid Stimulating Hormone (TSH) 2.66 uIU/mL 0.358-3.74 [facility] Work Phone: Vitamin D 25-Hydroxy 46.1 ng/mL [facility] Work Phone: Comment on above: Vitamin D 25(OH) Sta tus Range Deficiency <20 ng/mL (50nmol/L) Insufficiency 20 - 30 ng/mL (50 - 75 nmol/L) Sufficiency 30 - 100 ng/mL (75 - 250 nmol/L) Toxicity >100 ng/mL (>250 nmol/L) Platelets bldon 11-23-2021 Platelets (Bld) [#/Vol] 209 10*3/uL 150-450 [facility] Work Phone: Serum or plasma albumin osiris urement (mass/volume)on 11-23-2021 Albumin [Mass/Vol] 3.0 g/dL 3.2-5.0 [facility] Work Phone: Serum or plasma albumin/glob ulin mass ratioon 11-23-2021 Albumin/Globulin [Mass ratio] 0.7 {ratio} 0.9-2.4 [facility] Work Phone: Serum or plasma calcium osiris urement (mass/volume)on 11-23-2021 Calcium [Mass/Vol] 8.9 mg/dL 8.5-10.1 [facility] Work Phone: Serum or plasma creatinine m easurement (mass/volume)on 11-23-2021 Creatinine [Mass/Vol] 0.88 mg/dL 0.55-1.02 [facility] Work Phone: Comment on above: The validity of the calculated GFR & GFRAA in patients over 70 years has not been determined. Clinical correlation is essential. Serum or plasma urea nitroge n measurement (mass/volume)on 11-23-2021 Urea nitrogen [Mass/Vol] 18 mg/dL 7-18 [facility] Work Phone: Thin prep Papanicolaou smear with manual screeningon 11-23-2021 Thin prep Papanicolaou smear with manual screening 20 U/L 15-37 [facility] Work Phone: Thin prep Papanicolaou smear with manual screening 9 5-15 [facility] Work Phone: Absolute lymphocyte counton 10-06-2021 Lymphocytes Auto (Unsp spec) [#/Vol] 1.63 10*3/uL 0.83-4.51 [facility] Work Phone: Basophil percentageon 2021 Basophils/100 WBC (Bld) 0.7 % 0-1 [facility] Work Phone: Chloride [Moles/Vol] 107 mmol/L 98-107 [facility] Work Phone: Eosinophils/100 WBC (Bld) 1.1 % 0-5 [facility] Work Phone: Glucose [Mass/Vol] 104 mg/dL 74-106 [facility] Work Phone: Comment on above: Fasting Glucose resu lt from 100 to 125 mg/dL suggests IMPAIRED HOMEOSTASIS per A.D.A. criteria. Neutrophils (Bld) [#/Vol] 5.2 10*3/uL 2.0-7.7 [facility] Work Phone: Neutrophils/100 WBC (Bld) 69.3 % 47-70 [facility] Work Phone: Potassium [Moles/Vol] 3.8 mmol/L 3.5-5.1 [facility] Work Phone: Sodium [Moles/Vol] 137 mmol/L 136-145 [facility] Work Phone: WBC (Bld) [#/Vol] 7.5 10*3/uL 4.4-11.0 [facility] Work Phone: Blood erythrocytes count (nu mber/volume)on 10-06-2021 RBC (Bld) [#/Vol] 4.03 10*6/uL 4.2-5.4 [facility] Work Phone: Blood hemoglobin measurement (mass/volume)on 10-06-2021 Hemoglobin (Bld) [Mass/Vol] 12.6 g/dL 12.0-15.0 [facility] Work Phone: Blood lymphocytes/100 leukoc yteson 10-06-2021 Lymphocytes/100 WBC (Bld) 21.7 % 19-41 [facility] Work Phone: Blood monocytes/100 leukocyt eson 10-06-2021 Monocytes/100 WBC (Bld) 6.8 % 0-10 [facility] Work Phone: Blood platelet mean volumeon 10-06-2021 Platelet mean volume (Bld) [Entitic vol] 10.1 fL 6.2-12.0 [facility] Work Phone: Determination of erythrocyte mean corpuscular volume (MCV)on 10-06-2021 MCV (RBC) [Entitic vol] 91.6 fL 81-99 [facility] Work Phone: Hematocrit Auto (Bld) [Volum e fraction]on 10-06-2021 Hematocrit (Bld) [Volume fraction] 36.9 % 37-47 [facility] Work Phone: Laboratory - Chemistry and C hemistry - challengeon 10-06-2021 CO2 [Moles/Vol] 25.0 mmol/L 21.0-32.0 [facility] Work Phone: Urea nitrogen/Creatinine [Mass ratio] 32.1 mg/mg 10-20 [facility] Work Phone: Laboratory - Hematology and Cell countson 10-06-2021 Erythrocyte distribution width (RBC) [Entitic vol] 45.9 fL 35.1-43.9 [facility] Work Phone: Erythrocyte distribution width (RBC) [Ratio] 13.7 % 11.6-14.6 [facility] Work Phone: Immature granulocytes/100 WBC (Bld) 0.400 % 0.0-0.9 [facility] Work Phone: Comment on above: IG% - Immature Granu locytes (promyelocytes, myelocytes and metamyelocytes) > 1% indicates that a LEFT SHIFT is Present. MCH (RBC) [Entitic mass] 31.3 pg 27.0-32.0 [facility] Work Phone: Nucleated RBC/100 WBC (Bld) [Ratio] 0 % 0-5 [facility] Work Phone: MCHC Auto (RBC) [Mass/Vol]on 10-06-2021 MCHC (RBC) [Mass/Vol] 34.1 g/dL 32-36 [facility] Work Phone: No Panel Informationon 10-06 Estimated Creatinine Clearance Calc 40.18 ml/min [facility] Work Phone: Estimated GFR (MDRD) Amer 126 mL/min >60 [facility] Work Phone: Comment on above: GFR Calc Estimated GFR (MDRD) Non-Af Amer 104 mL/min >60 [facility] Work Phone: Comment on above: Non- GFR Calc Platelets bldon 10-06-2021 Platelets (Bld) [#/Vol] 207 10*3/uL 150-450 [facility] Work Phone: Serum or plasma calcium osiris urement (mass/volume)on 10-06-2021 Calcium [Mass/Vol] 8.3 mg/dL 8.5-10.1 [facility] Work Phone: Serum or plasma creatinine m easurement (mass/volume)on 10-06-2021 Creatinine [Mass/Vol] 0.59 mg/dL 0.55-1.02 [facility] Work Phone: Comment on above: The validity of the calculated GFR & GFRAA in patients over 70 years has not been determined. Clinical correlation is essential. Serum or plasma urea nitroge n measurement (mass/volume)on 10-06-2021 Urea nitrogen [Mass/Vol] 19 mg/dL 7-18 [facility] Work Phone: Thin prep Papanicolaou smear with manual screeningon 10-06-2021 Thin prep Papanicolaou smear with manual screening 5 5-15 [facility] Work Phone: Basophil percentageon 2021 Basophil percentage 0 SEEN /hpf [facility] Work Phone: Bilirubin [Mass/Vol] 0.70 mg/dL 0.20-1.00 [facility] Work Phone: Comment on above: For patients on eltr ombopag therapy, use of Dimension [place] TBIL is not recommended. Protein [Mass/Vol] 6.9 g/dL 6.4-8.2 [facility] Work Phone: Bilirubin Test strip Ql (U)o n 10-05-2021 Bilirubin Ql (U) Negative Negative [facility] Work Phone: Ketones Test strip Ql (U)on 10-05-2021 Ketones Ql (U) Negative Negative [facility] Work Phone: Laboratory - Chemistry and C hemistry - challengeon 10-05-2021 ALP [Catalytic activity/Vol] 139 U/L 45-117 [facility] Work Phone: ALT [Catalytic activity/Vol] 16 U/L 13-56 [facility] Work Phone: Globulin (S) [Mass/Vol] 3.9 g/dL 2.2-4.2 [facility] Work Phone: Mucus LM Ql (Urine sed)on Mucus Ql (Urine sed) 0 SEEN /hpf [facility] Work Phone: Nitrite Test strip Ql (U)on 10-05-2021 Nitrite Ql (U) Negative Negative [facility] Work Phone: No Panel Informationon 10-05 Troponin I High Sensitivity 8 pg/mL 3.0-54.0 [facility] Work Phone: Comment on above: Please Note: New [place] t Units and Gender Specific Reference Ranges. For more information see Policy Stat Procedure [place] High Sensitivity Troponin (TNIH) and attachments. SARS-CoV-2 Antigen (Rapid) [facility] Work Phone: Protein Test strip Ql (U)on 10-05-2021 Protein Ql (U) 30 mg/dl Negative [facility] Work Phone: Serum or plasma albumin osiris urement (mass/volume)on 10-05-2021 Albumin [Mass/Vol] 3.0 g/dL 3.2-5.0 [facility] Work Phone: Serum or plasma albumin/glob ulin mass ratioon 10-05-2021 Albumin/Globulin [Mass ratio] 0.8 {ratio} 0.9-2.4 [facility] Work Phone: Squamous epithelial cells de tection in urine sediment by light microscopyon 10-05-2021 Epithelial cells.squamous LM Ql (Urine sed) 0-5 SEEN /hpf [facility] Work Phone: Thin prep Papanicolaou smear with manual screeningon 10-05-2021 Thin prep Papanicolaou smear with manual screening 12 U/L 15-37 [facility] Work Phone: Urine blood detectionon 09-18 RBC Ql (U) Negative Negative [facility] Work Phone: RBC Ql (U) 0 SEEN /hpf [facility] Work Phone: Urine clarityon 10-05-2021 Clarity (U) Clear Clear [facility] Work Phone: Urine color determinationon 10-05-2021 Color (U) Yellow Yellow [facility] Work Phone: Urine glucose detectionon Glucose Ql (U) Normal mg/dl Normal [facility] Work Phone: Urine leukocyte esterase det ection by dipstickon 10-05-2021 Leukocyte esterase Test strip Ql (U) Negative Negative [facility] Work Phone: Urine pHon 10-05-2021 pH (U) 6.0 [pH] [facility] Work Phone: Urine sediment bacteria coun t by microscopy (number/high power field)on 10-05-2021 Bacteria LM.HPF (Urine sed) [#/Area] 0 /[HPF] None Seen [facility] Work Phone: Urine specific gravity measu rementon 10-05-2021 Specific gravity (U) [Rel density] 1.020 [facility] Work Phone: Urobilinogen Auto test strip Ql (U)on 10-05-2021 Urobilinogen Ql (U) Normal mg/dl Normal [facility] Work Phone: Absolute lymphocyte counton 10-03-2021 Lymphocytes Auto (Unsp spec) [#/Vol] 1.64 10*3/uL 0.83-4.51 [facility] Work Phone: Basophil percentageon 2021 Basophils/100 WBC (Bld) 0.6 % 0-1 [facility] Work Phone: Chloride [Moles/Vol] 111 mmol/L 98-107 [facility] Work [facility]: [phone] Eosinophils/100 WBC (Bld) 1.5 % 0-5 [facility] Work Phone: [phone] Glucose [Mass/Vol] 99 mg/dL 74-106 [facility] Work Phone: [phone] Neutrophils (Bld) [#/Vol] 4.5 10*3/uL 2.0-7.7 [facility] Work Phone: [phone] Neutrophils/100 WBC (Bld) 66.6 % 47-70 [facility] Work Phone: Potassium [Moles/Vol] 4.0 mmol/L 3.5-5.1 [facility] Work Phone: Sodium [Moles/Vol] 139 mmol/L 136-145 [facility]: WBC (Bld) [#/Vol] 6.7 10*3/uL 4.4-11.0 [facility] Work Phone: Blood erythrocytes count (nu mber/volume)on 10-03-2021 RBC (Bld) [#/Vol] 4.12 10*6/uL 4.2-5.4 [facility] Work Phone: Blood hemoglobin measurement (mass/volume)on 10-03-2021 Hemoglobin (Bld) [Mass/Vol] 12.5 g/dL 12.0-15.0 [facility] Work Phone: [phone] Blood lymphocytes/100 leukoc yteson 10-03-2021 Lymphocytes/100 WBC (Bld) 24.4 % 19-41 [facility] Work Phone: [phone] Blood monocytes/100 leukocyt eson 10-03-2021 Monocytes/100 WBC (Bld) 6.5 % 0-10 [facility] Work Phone: Blood platelet mean volumeon 10-03-2021 Platelet mean volume (Bld) [Entitic vol] 9.7 fL 6.2-12.0 [facility] Work Phone: Determination of erythrocyte mean corpuscular volume (MCV)on 10-03-2021 MCV (RBC) [Entitic vol] 93.0 fL 81-99 [facility] Work Phone: Hematocrit Auto (Bld) [Volum e fraction]on 10-03-2021 Hematocrit (Bld) [Volume fraction] 38.3 % 37-47 [facility] Work Phone: Laboratory - Chemistry and C hemistry - challengeon 10-03-2021 CO2 [Moles/Vol] 26.0 mmol/L 21.0-32.0 [facility] Work Phone: Urea nitrogen/Creatinine [Mass ratio] 26.5 mg/mg 10-20 [facility] Work Phone: Laboratory - Hematology and Cell countson 10-03-2021 Erythrocyte distribution width (RBC) [Entitic vol] 46.9 fL 35.1-43.9 [facility] Work Phone: Erythrocyte distribution width (RBC) [Ratio] 13.7 % 11.6-14.6 [facility] Work Phone: Immature granulocytes/100 WBC (Bld) 0.400 % 0.0-0.9 [facility] Work Phone: Comment on above: IG% - Immature Granu locytes (promyelocytes, myelocytes and metamyelocytes) > 1% indicates that a LEFT SHIFT is Present. MCH (RBC) [Entitic mass] 30.3 pg 27.0-32.0 [facility] Work Phone: Nucleated RBC/100 WBC (Bld) [Ratio] 0 % 0-5 [facility] Work Phone: MCHC Auto (RBC) [Mass/Vol]on 10-03-2021 MCHC (RBC) [Mass/Vol] 32.6 g/dL 32-36 [facility] Work Phone: No Panel Informationon 10-03 Estimated Creatinine Clearance Calc 41.32 ml/min [facility] Work Phone: Estimated GFR (MDRD) Amer 107 mL/min >60 [facility] Work Phone: Comment on above: GFR Calc Estimated GFR (MDRD) Non-Af Amer 89 mL/min >60 [facility] Work Phone: Comment on above: Non- GFR Calc Platelets bldon 10-03-2021 Platelets (Bld) [#/Vol] 197 10*3/uL 150-450 [facility] Work Phone: Serum or plasma calcium osiris urement (mass/volume)on 10-03-2021 Calcium [Mass/Vol] 8.4 mg/dL 8.5-10.1 [facility] Work Phone: Serum or plasma creatinine m easurement (mass/volume)on 10-03-2021 Creatinine [Mass/Vol] 0.68 mg/dL 0.55-1.02 [facility] Work Phone: Comment on above: The validity of the calculated GFR & GFRAA in patients over 70 years has not been determined. Clinical correlation is essential. Serum or plasma urea nitroge n measurement (mass/volume)on 10-03-2021 Urea nitrogen [Mass/Vol] 18 mg/dL 7-18 [facility] Work Phone: Thin prep Papanicolaou smear with manual screeningon 10-03-2021 Thin prep Papanicolaou smear with manual screening 2 5-15 [facility] Work Phone: Basophil percentageon 2021 Bilirubin [Mass/Vol] 0.40 mg/dL 0.20-1.00 [facility] Work Phone: Comment on above: For patients on eltr ombopag therapy, use of Dimension [place] TBIL is not recommended. Protein [Mass/Vol] 5.9 g/dL 6.4-8.2 [facility] Work Phone: Laboratory - Chemistry and C hemistry - challengeon 09-21-2021 ALP [Catalytic activity/Vol] 112 U/L 45-117 [facility] Work Phone: ALT [Catalytic activity/Vol] 18 U/L 13-56 [facility] Work Phone: Globulin (S) [Mass/Vol] 3.3 g/dL 2.2-4.2 [facility] Work Phone: Serum or plasma albumin osiris urement (mass/volume)on 09-21-2021 Albumin [Mass/Vol] 2.6 g/dL 3.2-5.0 [facility] Work Phone: Serum or plasma albumin/glob ulin mass ratioon 09-21-2021 Albumin/Globulin [Mass ratio] 0.8 {ratio} 0.9-2.4 [facility] Work Phone: Thin prep Papanicolaou smear with manual screeningon 09-21-2021 Thin prep Papanicolaou smear with manual screening 14 U/L 15-37 [facility] Work Phone: Direct bilirubinon 2 Bilirubin.direct [Mass/Vol] 0.13 mg/dL 0.00-0.30 [facility] Work Phone: No Panel Informationon 09-19 SARS-CoV-2 Antigen (Rapid) SARS-CoV-2 (COVID 19) [facility] Work Phone: Basophil percentageon 2021 Basophil percentage 0 SEEN /hpf [facility] Work Phone: Bilirubin Test strip Ql (U)o n 09-18-2021 Bilirubin Ql (U) Negative Negative [facility] Work Phone: Culture, urineon 09-18-2021 Bacteria identified Cx Nom (U) Lactobacillus gasseri [facility] Work Phone: Ketones Test strip Ql (U)on 09-18-2021 Ketones Ql (U) 5 mg/dl Negative [facility] Work Phone: Mucus LM Ql (Urine sed)on Mucus Ql (Urine sed) 0 SEEN /hpf [facility] Work Phone: Nitrite Test strip Ql (U)on 09-18-2021 Nitrite Ql (U) Negative Negative [facility] Work Phone: Protein Test strip Ql (U)on 09-18-2021 Protein Ql (U) 30 mg/dl Negative [facility] Work Phone: Squamous epithelial cells de tection in urine sediment by light microscopyon 09-18-2021 Epithelial cells.squamous LM Ql (Urine sed) 0 SEEN /hpf [facility] Work Phone: Urine blood detectionon RBC Ql (U) 10 /ul Negative [facility] Work Phone: RBC Ql (U) 0 SEEN /hpf [facility] Work Phone: Urine clarityon 09-18-2021 Clarity (U) Clear Clear [facility] Work Phone: Urine color determinationon 09-18-2021 Color (U) Yellow Yellow [facility] Work Phone: Urine glucose detectionon Glucose Ql (U) Normal mg/dl Normal [facility] Work Phone: Urine leukocyte esterase det ection by dipstickon 09-18-2021 Leukocyte esterase Test strip Ql (U) Negative Negative [facility] Work Phone: Urine pHon 09-18-2021 pH (U) 5.0 [pH] [facility] Work Phone: Urine sediment bacteria coun t by microscopy (number/high power field)on 09-18-2021 Bacteria LM.HPF (Urine sed) [#/Area] 1 /[HPF] None Seen [facility] Work Phone: Urine specific gravity measu rementon 09-18-2021 Specific gravity (U) [Rel density] 1.020 [facility] Work Phone: Urobilinogen Auto test strip Ql (U)on 09-18-2021 Urobilinogen Ql (U) Normal mg/dl Normal [facility] Work Phone: [phone] Absolute lymphocyte counton 09-04-2021 Lymphocytes Auto (Unsp spec) [#/Vol] 1.36 10*3/uL 0.83-4.51 [facility] Work Phone: [phone] Basophil percentageon 2021 Basophils/100 WBC (Bld) 0.2 % 0-1 [facility] Work Phone: [phone] Chloride [Moles/Vol] 105 mmol/L 98-107 [facility] Work Phone: [phone] Eosinophils/100 WBC (Bld) 0.3 % 0-5 [facility] Work Phone: Glucose [Mass/Vol] 108 mg/dL 74-106 [facility] Work Phone: Comment on above: Fasting Glucose resu lt from 100 to 125 mg/dL suggests IMPAIRED HOMEOSTASIS per A.D.A. criteria. Neutrophils (Bld) [#/Vol] 7.0 10*3/uL 2.0-7.7 [facility] Work Phone: [phone] Neutrophils/100 WBC (Bld) 78.7 % 47-70 [facility] Work Phone: Potassium [Moles/Vol] 3.7 mmol/L 3.5-5.1 [facility] Work Phone: [phone] Sodium [Moles/Vol] 137 mmol/L 136-145 [facility] Work Phone: [phone] WBC (Bld) [#/Vol] 8.9 10*3/uL 4.4-11.0 [facility] Work Phone: Blood erythrocytes count (nu mber/volume)on 09-04-2021 RBC (Bld) [#/Vol] 4.17 10*6/uL 4.2-5.4 [facility] Work Phone: Blood hemoglobin measurement (mass/volume)on 09-04-2021 Hemoglobin (Bld) [Mass/Vol] 12.8 g/dL 12.0-15.0 [facility] Work Phone: Blood lymphocytes/100 leukoc yteson 09-04-2021 Lymphocytes/100 WBC (Bld) 15.2 % 19-41 [facility] Work Phone: [phone] Blood monocytes/100 leukocyt eson 09-04-2021 Monocytes/100 WBC (Bld) 5.3 % 0-10 [facility] Work Phone: Blood platelet mean volumeon 09-04-2021 Platelet mean volume (Bld) [Entitic vol] 9.9 fL 6.2-12.0 [facility] Work Phone: Determination of erythrocyte mean corpuscular volume (MCV)on 09-04-2021 MCV (RBC) [Entitic vol] 90.9 fL 81-99 [facility] Work Phone: Hematocrit Auto (Bld) [Volum e fraction]on 09-04-2021 Hematocrit (Bld) [Volume fraction] 37.9 % 37-47 [facility] Work Phone: Laboratory - Chemistry and C hemistry - challengeon 09-04-2021 CO2 [Moles/Vol] 26.0 mmol/L 21.0-32.0 [facility] Work Phone: Urea nitrogen/Creatinine [Mass ratio] 33.7 mg/mg 10-20 [facility] Work Phone: Laboratory - Hematology and Cell countson 09-04-2021 Erythrocyte distribution width (RBC) [Entitic vol] 42.4 fL 35.1-43.9 [facility] Work Phone: Erythrocyte distribution width (RBC) [Ratio] 12.8 % 11.6-14.6 [facility] Work Phone: Immature granulocytes/100 WBC (Bld) 0.300 % 0.0-0.9 [facility] Work Phone: Comment on above: IG% - Immature Granu locytes (promyelocytes, myelocytes and metamyelocytes) > 1% indicates that a LEFT SHIFT is Present. MCH (RBC) [Entitic mass] 30.7 pg 27.0-32.0 [facility] Work Phone: Nucleated RBC/100 WBC (Bld) [Ratio] 0 % 0-5 [facility] Work Phone: MCHC Auto (RBC) [Mass/Vol]on 09-04-2021 MCHC (RBC) [Mass/Vol] 33.8 g/dL 32-36 [facility] Work Phone: No Panel Informationon 09-04 Estimated Creatinine Clearance Calc 44.29 ml/min [facility] Work Phone: Estimated GFR (MDRD) Amer 126 mL/min >60 [facility] Work Phone: Comment on above: GFR Calc Estimated GFR (MDRD) Non-Af Amer 104 mL/min >60 [facility] Work Phone: Comment on above: Non- GFR Calc Platelets bldon 09-04-2021 Platelets (Bld) [#/Vol] 181 10*3/uL 150-450 [facility] Work Phone: Serum or plasma calcium osiris urement (mass/volume)on 09-04-2021 Calcium [Mass/Vol] 8.1 mg/dL 8.5-10.1 [facility] Work Phone: Serum or plasma creatinine m easurement (mass/volume)on 09-04-2021 Creatinine [Mass/Vol] 0.59 mg/dL 0.55-1.02 [facility] Work Phone: Comment on above: The validity of the calculated GFR & GFRAA in patients over 70 years has not been determined. Clinical correlation is essential. Serum or plasma urea nitroge n measurement (mass/volume)on 09-04-2021 Urea nitrogen [Mass/Vol] 20 mg/dL 7-18 [facility] Work Phone: Thin prep Papanicolaou smear with manual screeningon 09-04-2021 Thin prep Papanicolaou smear with manual screening 6 5-15 [facility] Work Phone: Laboratory - Chemistry and C hemistry - challengeon 09-03-2021 Magnesium [Mass/Vol] 2.0 mg/dL 1.6-2.6 [facility] Work Phone: No Panel Informationon 09-03 SARS-CoV-2 Antigen (Rapid) [facility] Work Phone: Bilirubin Test strip Ql (U)o n 09-02-2021 Bilirubin Ql (U) Negative Negative [facility] Work Phone: Culture, urineon 09-02-2021 Bacteria identified Cx Nom (U) Mixed Gram Pos & Gram Neg Org [facility] Work Phone: INR in Blood by Coagulation assayon 09-02-2021 INR Coag (Bld) [Relative time] 1.1 {INR} [facility] Work Phone: Ketones Test strip Ql (U)on 09-02-2021 Ketones Ql (U) Negative Negative [facility] Work Phone: Laboratory - Coagulationon 0 09-02-2021 aPTT Coag (Bld) [Time] 25.9 s 24.1-36.2 [facility] Work Phone: PT Coag (PPP) [Time] 14.0 s 11.7-14.9 [facility] Work Phone: Nitrite Test strip Ql (U)on 09-02-2021 Nitrite Ql (U) Negative Negative [facility] Work Phone: Protein Test strip Ql (U)on 09-02-2021 Protein Ql (U) 100 mg/dl Negative [facility] Work Phone: Urine blood detectionon 08-18 RBC Ql (U) 150 /ul Negative [facility] Work Phone: Urine clarityon 09-02-2021 Clarity (U) Turbid Clear [facility] Work Phone: Urine color determinationon 09-02-2021 Color (U) Yellow Yellow [facility] Work Phone: Urine glucose detectionon Glucose Ql (U) Normal mg/dl Normal [facility] Work Phone: Urine leukocyte esterase det ection by dipstickon 09-02-2021 Leukocyte esterase Test strip Ql (U) 500 /ul Negative [facility] Work Phone: Urine pHon 09-02-2021 pH (U) 5.0 [pH] [facility] Work Phone: Urine specific gravity measu rementon 09-02-2021 Specific gravity (U) [Rel density] 1.025 [facility] Work Phone: Urobilinogen Auto test strip Ql (U)on 09-02-2021 Urobilinogen Ql (U) Normal mg/dl Normal [facility] Work Phone: Culture, urine Bacteria identified Cx Nom (U) Presumptive E. coli [facility] Work Phone: VISUAL FIELD 24-2 OU (BOTH E YES) [facility] Vital Signs Date Time Vital Sign Value Performing Clinician Facility 02-06-2025 10:58-0400 Body temperature 98.7 [degF] Dr. Chema Perry MD Work Phone: [facility] 02-06-2025 10:58-0400 Diastolic blood pressure 76 mm[Hg] Dr. Chema Perry MD Work Phone: [facility] 02-06-2025 10:58-0400 Heart rate 71 /min Dr. Chema Perry MD Work Phone: [facility] 02-06-2025 10:58-0400 Respiratory rate 18 /min Dr. Chema Perry MD Work Phone: [facility] 02-06-2025 10:58-0400 SaO2% (BldA) [Mass fraction] 99 % Dr. Chema Perry MD Work Phone: [facility] 02-06-2025 10:58-0400 Systolic blood pressure 110 mm[Hg] Dr. Chema Perry MD Work Phone: [facility] 02-06-2025 07:30-0400 Body height 139.[address] Chema Perry MD Work Phone: [facility] 02-06-2025 07:30-0400 Body mass index (BMI) [Ratio] 25.4 kg/m2 Dr. Chema Perry MD Work Phone: [facility] 02-06-2025 07:30-0400 Body weight 49.[address] Chema Perry MD Work Phone: [facility] 02-03-2025 08:15-0400 Body temperature 97.3 [degF] Dr. Chema Perry MD Work Phone: [facility] 02-03-2025 08:15-0400 Diastolic blood pressure 62 mm[Hg] Dr. Chema Perry MD Work Phone: [facility] 02-03-2025 08:15-0400 Heart rate 77 /min Dr. Chema Perry MD Work Phone: [facility] 02-03-2025 08:15-0400 Respiratory rate 16 /min Dr. Chema Perry MD Work Phone: [facility] 02-03-2025 08:15-0400 SaO2% (BldA) [Mass fraction] 98 % Dr. Chema Perry MD Work Phone: [facility] 02-03-2025 08:15-0400 Systolic blood pressure 101 mm[Hg] Dr. Chema Perry MD Work Phone: [facility] 02-03-2025 04:07-0400 Body height 139.[address] Chema Perry MD Work Phone: [facility] 02-03-2025 04:07-0400 Body mass index (BMI) [Ratio] 28.8 kg/m2 Dr. Chema Perry MD Work Phone: [facility] 02-03-2025 04:07-0400 Body weight 56.[address] Chema Perry MD Work Phone: [facility] 12-23-2024 14:30-0400 Diastolic blood pressure 56 mm[Hg] Laisha Lizarraga APRN.MANAGEMENT TECHNICIAN Work Phone: [facility] 12-23-2024 14:30-0400 Heart rate 70 /min Laisha Lizarraga APRN.MANAGEMENT TECHNICIAN Work Phone: [facility] 12-23-2024 14:30-0400 Systolic blood pressure 121 mm[Hg] Laisha Lizarraga APRN.MANAGEMENT TECHNICIAN Work Phone: [facility] 12-20-2024 [...] 24.29 kg/m2 Denice Houstoner PA-C Work Phone: [facility] 11-03-2024 15:32-0400 Body weight 47.4 kg Denice Houstoner PA-C Work Phone: [facility] 11-03-2024 15:32-0400 Diastolic blood pressure 73 mm[Hg] Denice er PA-C Work Phone: [facility] 11-03-2024 15:32-0400 Heart rate 68 /min Denice er PA-C Work Phone: [facility] 11-03-2024 15:32-0400 SaO2% (BldA) [Mass fraction] 90 % Deniceclair Houstoner PA-C Work Phone: [facility] [...] kg/m2 Dr. Chema Perry MD Work Phone: [facility] 10-22-2024 08:26-0500 Body temperature 97.4 [degF] Dr. Chema Perry MD Work Phone: [facility] 10-22-2024 08:26-0500 Body weight 46.[address] Chema Perry MD Work Phone: [facility] 10-22-2024 08:26-0500 Diastolic blood pressure 79 mm[Hg] Dr. Chema Perry MD Work Phone: [facility] 10-22-2024 08:26-0500 Heart rate 72 /min Dr. Chema Perry MD Work Phone: [facility] 10-22-2024 08:26-0500 Respiratory rate 18 /min Dr. Chema Perry MD Work Phone: [facility] 10-22-2024 08:26-0500 SaO2% (BldA) [Mass fraction] 93 % Dr. Chema Perry MD Work Phone: [facility] 10-22-2024 08:26-0500 Systolic blood pressure 125 mm[Hg] Dr. Chema Perry MD Work Phone: [facility] 10-14-2024 13:18-0500 Body height 139.[address] Chema Perry MD Work Phone: [facility] 10-14-2024 13:18-0500 Body mass index (BMI) [Ratio] 24.4 kg/m2 Dr. Chema Perry MD Work Phone: [facility] 10-14-2024 13:18-0500 Body temperature 98.4 [degF] Dr. Chema Perry MD Work Phone: [facility] 10-14-2024 13:18-0500 Body weight 47.[address] Chema Perry MD Work Phone: [facility] 10-14-2024 13:18-0500 Diastolic blood pressure 79 mm[Hg] Dr. Chema Perry MD Work Phone: [facility] 10-14-2024 13:18-0500 Heart rate 78 /min Dr. Chema Perry MD Work Phone: [facility] 10-14-2024 13:18-0500 Respiratory rate 16 /min Dr. Chema Perry MD Work Phone: [facility] 10-14-2024 13:18-0500 SaO2% (BldA) [Mass fraction] 90 % Dr. Chema Perry MD Work Phone: [facility] 10-14-2024 13:18-0500 Systolic blood pressure 113 mm[Hg] Dr. Chema Perry MD Work Phone: [facility] 10-13-2024 13:08-0500 Body height 139.7 cm Laisha Lizarraga APRN.MANAGEMENT TECHNICIAN Work Phone: [facility] 10-13-2024 13:08-0500 Body mass index (BMI) [Ratio] 23.47 kg/m2 Laisha Lizarraga APRN.MANAGEMENT TECHNICIAN Work Phone: [facility] 10-13-2024 13:08-0500 Body weight 45.81 kg Laisha Lizarraga APRN.MANAGEMENT TECHNICIAN Work Phone: [facility] 10-13-2024 13:08-0500 Diastolic blood pressure 43 mm[Hg] Laisha Lizarraga APRN.MANAGEMENT TECHNICIAN Work Phone: [facility] 10-13-2024 13:08-0500 Heart rate 73 /min Laisha Lizarraga APRN.CNP Work Phone: [facility] 10-13-2024 13:08-0500 Systolic blood pressure 81 mm[Hg] Laisha Lizarraga APRN.MANAGEMENT TECHNICIAN Work Phone: [facility] 10-08-2024 [...] [degF] Dr. Chema Perry MD Work Phone: [facility] 09-18-2024 10:18-0500 Diastolic blood pressure 74 mm[Hg] Dr. Chema Perry MD Work Phone: [facility] 09-18-2024 10:18-0500 Heart rate 78 /min Dr. Chema Perry MD Work Phone: [facility] 09-18-2024 10:18-0500 Respiratory rate 18 /min Dr. Chema Perry MD Work Phone: [facility] 09-18-2024 10:18-0500 SaO2% (BldA) [Mass fraction] 98 % Dr. Chema Perry MD Work Phone: [facility] 09-18-2024 10:18-0500 Systolic blood pressure 154 mm[Hg] Dr. Chema Perry MD Work Phone: [facility] 09-18-2024 08:38-0500 Body mass index (BMI) [Ratio] 25.7 kg/m2 Dr. Chema Perry MD Work Phone: [facility] 09-18-2024 08:38-0500 Body weight 50.[address] Chema Perry MD Work Phone: [facility] 09-14-2024 13:49-0500 Body height 139.7 cm Pacc [...] 09-14-2024 13:49-0500 Systolic blood pressure 124 mm[Hg] [facility] 1 Work Phone: [facility] [...] 08-06-2024 09:50-0500 Body height 142.2 cm Denice Houstoner PA-C Work Phone: [facility] 08-06-2024 09:50-0500 Body mass index (BMI) [Ratio] 22.69 kg/m2 Denice Houstoner PA-C Work Phone: [facility] 08-06-2024 09:50-0500 Body weight 45.9 kg Denice Houstoner PA-C Work Phone: [facility] 08-06-2024 09:50-0500 Diastolic blood pressure 63 mm[Hg] Denice Houstoner PA-C Work Phone: [facility] 08-06-2024 09:50-0500 Heart rate 79 /min Denice Houstoner PA-C Work Phone: [facility] 08-06-2024 09:50-0500 SaO2% (BldA) [Mass fraction] 94 % Denice Houstoner PA-C Work Phone: [facility] 08-06-2024 09:50-0500 Systolic blood pressure 116 mm[Hg] Denice Houstoner PA-C Work Phone: [facility] 08-03-2024 15:36-0500 Diastolic blood pressure 74 mm[Hg] Sourav Marcial MD Work Phone: [facility] 08-03-2024 15:36-0500 Heart rate 75 /min Sourav Marcial MD Work Phone: [facility] 08-03-2024 15:36-0500 Systolic blood pressure 148 mm[Hg] Sourav Marcial MD Work Phone: [facility] [...] Body mass index (BMI) [Ratio] 19.79 kg/m2 [facility] 1 Work Phone: [facility] [...] 07-16-2024 14:35-0500 Systolic blood pressure 161 mm[Hg] [facility] 1 Work Phone: [facility] 07-07-2024 11:48-0500 Body mass index (BMI) [Ratio] 22.6 kg/m2 Dr. Chema Perry MD Work Phone: [facility] 07-07-2024 11:48-0500 Body temperature 98.6 [degF] Dr. Chema Perry MD Work Phone: [facility] 07-07-2024 11:48-0500 Body weight 45.[address] Chema Perry MD Work Phone: [facility] 07-07-2024 11:48-0500 Diastolic blood pressure 83 mm[Hg] Dr. Chema Perry MD Work Phone: [facility] 07-07-2024 11:48-0500 Heart rate 58 /min Dr. Chema Perry MD Work Phone: [facility] 07-07-2024 11:48-0500 Respiratory rate 16 /min Dr. Chema Perry MD Work Phone: [facility] 07-07-2024 11:48-0500 SaO2% (BldA) [Mass fraction] 92 % Dr. Chema Perry MD Work Phone: [facility] 07-07-2024 11:48-0500 Systolic blood pressure 160 mm[Hg] Dr. Chema Perry MD Work Phone: [facility] 07-01-2024 13:25-0500 Body height 149.9 cm Laisha Lizarraga APRN.CNP Work Phone: [facility] 07-01-2024 13:25-0500 Body mass index (BMI) [Ratio] 19.87 kg/m2 Laisha Lizarraga APRN.CNP Work Phone: [facility] 07-01-2024 13:25-0500 Body weight 44.63 kg Laisha Hilariojaimecicihakeem BOTELLO.MANAGEMENT TECHNICIAN Work Phone: [facility] 07-01-2024 13:25-0500 Diastolic blood pressure 64 mm[Hg] Laisha Hilariopablito BOTELLO.MANAGEMENT TECHNICIAN Work Phone: [facility] 07-01-2024 13:25-0500 Heart rate 80 /min Laisha Zia BOTELLO.MANAGEMENT TECHNICIAN Work Phone: [facility] 07-01-2024 13:25-0500 Systolic blood pressure 106 mm[Hg] Laisha Aguilarcristi BOTELLO.MANAGEMENT TECHNICIAN Work Phone: [facility] 06-18-2024 12:44-0400 Body height 149.9 cm Anila De Paz MD Work Phone: [facility] 06-18-2024 12:44-0400 Body mass index (BMI) [Ratio] 20.47 kg/m2 Anial De Paz MD Work Phone: [facility] 13:38-0400 Body height 149.9 cm Laisha Lizarraga APRN.MANAGEMENT TECHNICIAN Work Phone: [facility] 03-25-2024 13:38-0400 Body mass index (BMI) [Ratio] 20.2 kg/m2 Laisha Lizarraga APRN.MANAGEMENT TECHNICIAN Work Phone: [facility] 03-25-2024 13:38-0400 Body weight 45.36 kg Laisha Lizarraga APRN.MANAGEMENT TECHNICIAN Work Phone: [facility] 03-25-2024 13:38-0400 Diastolic blood pressure 81 mm[Hg] Laisha Lizarraga APRN.MANAGEMENT TECHNICIAN Work Phone: [facility] 03-25-2024 13:38-0400 Heart rate 68 /min Laisha Lizarraga APRN.MANAGEMENT TECHNICIAN Work Phone: [facility] 03-25-2024 13:38-0400 Systolic blood pressure 137 mm[Hg] Laisha Lizarraga APRN.MANAGEMENT TECHNICIAN Work Phone: [facility] 11-12-2023 14:58-0400 Body height 142.[address] Chema Perry Work Phone: [facility] 11-12-2023 14:58-0400 Body mass index (BMI) [Ratio] 22.4 kg/m2 Dr. Chema Perry Work Phone: [facility] 11-12-2023 14:58-0400 Body weight 45.[address] Chema Perry Work Phone: [facility] 11-12-2023 14:58-0400 Diastolic blood pressure 71 mm[Hg] Dr. Chema Perry Work Phone: [facility] 11-12-2023 14:58-0400 Heart rate 71 /min Dr. Chema Perry Work Phone: [facility] 11-12-2023 14:58-0400 Respiratory rate 18 /min Dr. Chema Perry Work Phone: [facility] 11-12-2023 14:58-0400 SaO2% (BldA) [Mass fraction] 97 % Dr. Chema Perry Work Phone: [facility] 11-12-2023 14:58-0400 Systolic blood pressure 114 mm[Hg] Dr. Chema Perry Work Phone: [facility] 10-16-2023 14:36-0500 Diastolic blood pressure 55 mm[Hg] Laisha Lizarraga APRN.MANAGEMENT TECHNICIAN Work Phone: [facility] 10-16-2023 14:36-0500 Heart rate 79 /min Laisha Lizarraga APRN.MANAGEMENT TECHNICIAN Work Phone: [facility] 10-16-2023 14:36-0500 Systolic blood pressure 107 mm[Hg] Laisha Lizarraga APRN.MANAGEMENT TECHNICIAN Work Phone: [facility] 10-08-2023 14:26-0500 Body height 142.[address] Chema Perry Work Phone: [facility] 10-08-2023 14:26-0500 Body mass index (BMI) [Ratio] 22.1 kg/m2 Dr. Chema Perry Work Phone: [facility] 10-08-2023 14:26-0500 Body temperature 97.8 [degF] Dr. Chema Perry Work Phone: [facility] 10-08-2023 14:26-0500 Body weight 44.[address] Chema Perry Work Phone: [facility] 10-08-2023 14:26-0500 Diastolic blood pressure 75 mm[Hg] Dr. Chema Perry Work Phone: [facility] 10-08-2023 14:26-0500 Heart rate 73 /min Dr. Chema Perry Work Phone: [facility] 10-08-2023 14:26-0500 Respiratory rate 16 /min Dr. Chema Perry Work Phone: [facility] 10-08-2023 14:26-0500 SaO2% (BldA) [Mass fraction] 96 % Dr. Chema Perry Work Phone: [facility] 10-08-2023 14:26-0500 Systolic blood pressure 127 mm[Hg] Dr. Chema Perry Work Phone: [facility] 09-24-2023 09:59-0500 Body mass index (BMI) [Ratio] 23.1 kg/m2 Dr. Chema Perry Work Phone: [facility] 09-24-2023 09:59-0500 Body temperature 97.3 [degF] Dr. Chema Perry Work Phone: [facility] 09-24-2023 09:59-0500 Body weight 46.[address] Chema Perry Work Phone: [facility] 09-24-2023 09:59-0500 Diastolic blood pressure 76 mm[Hg] Dr. Chema Perry Work Phone: [facility] 09-24-2023 09:59-0500 Heart rate 77 /min Dr. Chema Perry Work Phone: [facility] 09-24-2023 09:59-0500 Respiratory rate 16 /min Dr. Chema Perry Work Phone: [facility] 09-24-2023 09:59-0500 SaO2% (BldA) [Mass fraction] 93 % Dr. Chema Perry Work Phone: [facility] 09-24-2023 09:59-0500 Systolic blood pressure 126 mm[Hg] Dr. Chema Perry Work Phone: [facility] 08-13-2023 15:36-0500 Body mass index (BMI) [Ratio] 23.6 kg/m2 Dr. Chema Perry Work Phone: [facility] 08-13-2023 15:36-0500 Body temperature 96.4 [degF] Dr. Chema Perry Work Phone: [facility] 08-13-2023 15:36-0500 Body weight 47.[address] Chema Perry Work Phone: [facility] 08-13-2023 15:36-0500 Diastolic blood pressure 83 mm[Hg] Dr. Chema Perry Work Phone: [facility] 08-13-2023 15:36-0500 Heart rate 71 /min Dr. Chema Perry Work Phone: [facility] 08-13-2023 15:36-0500 Respiratory rate 16 /min Dr. Chema Perry Work Phone: [facility] 08-13-2023 15:36-0500 SaO2% (BldA) [Mass fraction] 90 % Dr. Chema Perry Work Phone: [facility] 08-13-2023 15:36-0500 Systolic blood pressure 127 mm[Hg] Dr. Chema Perry Work Phone: [facility] 06-16-2023 13:40-0400 Body weight 48.08 kg Laisha Zia ROSASMANAGEMENT TECHNICIAN Work Phone: [facility] 06-16-2023 13:40-0400 Diastolic blood pressure 72 mm[Hg] Laisha Zia ROSASMANAGEMENT TECHNICIAN Work Phone: [facility] 06-16-2023 13:40-0400 Heart rate 81 /min Laisha Zia BOTELLO.MANAGEMENT TECHNICIAN Work Phone: [facility] 06-16-2023 13:40-0400 Systolic blood pressure 118 mm[Hg] Laisha Zia BOTELLO.MANAGEMENT TECHNICIAN Work Phone: [facility] 05-15-2023 14:11-0400 Body height 142.[address] Chema Perry Work Phone: [facility] 05-12-2023 11:40-0400 Body mass index (BMI) [Ratio] 24.4 kg/m2 Dr. Chema Perry Work Phone: [facility] 05-12-2023 11:40-0400 Body weight 49.[address] Chema Perry Work Phone: [facility] 05-12-2023 11:40-0400 Diastolic blood pressure 72 mm[Hg] Dr. Chema Perry Work Phone: [facility] 05-12-2023 11:40-0400 Heart rate 73 /min Dr. Chema Perry Work Phone: [facility] 05-12-2023 11:40-0400 Respiratory rate 18 /min Dr. Chema Perry Work Phone: [facility] 05-12-2023 11:40-0400 SaO2% (BldA) [Mass fraction] 96 % Dr. Chema Perry Work Phone: [facility] 05-12-2023 11:40-0400 Systolic blood pressure 111 mm[Hg] Dr. Chema Perry Work Phone: [facility] 04-07-2023 13:32-0400 Body height 142.[address] Chema Perry Work Phone: [facility] 04-07-2023 13:32-0400 Body mass index (BMI) [Ratio] 23.2 kg/m2 Dr. Chema Perry Work Phone: [facility] 04-07-2023 13:32-0400 Body temperature 96.9 [degF] Dr. Chema Perry Work Phone: [facility] 04-07-2023 13:32-0400 Body weight 46.[address] Chema Perry Work Phone: [facility] 04-07-2023 13:32-0400 Diastolic blood pressure 88 mm[Hg] Dr. Chema Perry Work Phone: [facility] 04-07-2023 13:32-0400 Heart rate 79 /min Dr. Chema Perry Work Phone: [facility] 04-07-2023 13:32-0400 Respiratory rate 18 /min Dr. Chema Perry Work Phone: [facility] 04-07-2023 13:32-0400 SaO2% (BldA) [Mass fraction] 95 % Dr. Chema Perry Work Phone: [facility] 04-07-2023 13:32-0400 Systolic blood pressure 142 mm[Hg] Dr. Chema Perry Work Phone: [facility] 04-02-2023 04:28-0400 Body height 142.[address] Chema Perry Work Phone: [facility] 04-02-2023 04:28-0400 Body mass index (BMI) [Ratio] 21.2 kg/m2 Dr. Chema Perry Work Phone: [facility] 04-02-2023 04:28-0400 Body temperature 98.3 [degF] Dr. Chema Perry Work Phone: [facility] 04-02-2023 04:28-0400 Body weight 42.[address] Chema Perry Work Phone: [facility] 04-02-2023 04:28-0400 Diastolic blood pressure 98 mm[Hg] Dr. Chema Perry Work Phone: [facility] 04-02-2023 04:28-0400 Heart rate 79 /min Dr. Chema Perry Work Phone: [facility] 04-02-2023 04:28-0400 Respiratory rate 15 /min Dr. Chema Perry Work Phone: [facility] 04-02-2023 04:28-0400 SaO2% (BldA) [Mass fraction] 99 % Dr. Chema Perry Work Phone: [facility] 04-02-2023 04:28-0400 Systolic blood pressure 184 mm[Hg] Dr. Chema Perry Work Phone: [facility] 03-24-2023 11:37-0400 Body mass index (BMI) [Ratio] 25.1 kg/m2 Dr. Chema Perry Work Phone: [facility] 03-24-2023 11:37-0400 Body temperature 98.1 [degF] Dr. Chema Perry Work Phone: [facility] 03-24-2023 11:37-0400 Body weight 50.[address] Chema Perry Work Phone: [facility] 03-24-2023 11:37-0400 Diastolic blood pressure 78 mm[Hg] Dr. Chema Perry Work Phone: [facility] 03-24-2023 11:37-0400 Heart rate 74 /min Dr. Chema Perry Work Phone: [facility] 03-24-2023 11:37-0400 Respiratory rate 12 /min Dr. Chema Perry Work Phone: [facility] 03-24-2023 11:37-0400 SaO2% (BldA) [Mass fraction] 93 % Dr. Chema Perry Work Phone: [facility] 03-24-2023 11:37-0400 Systolic blood pressure 147 mm[Hg] Dr. Chema Perry Work Phone: [facility] 02-12-2023 14:09-0400 Body height 149.[address] Chema Perry Work Phone: [facility] 02-12-2023 14:09-0400 Body mass index (BMI) [Ratio] 22.1 kg/m2 Dr. Chema Perry Work Phone: [facility] 02-12-2023 14:09-0400 Body temperature 98.2 [degF] Dr. Chema Perry Work Phone: [facility] 02-12-2023 14:09-0400 Body weight 49.[address] Chema Perry Work Phone: [facility] 02-12-2023 14:09-0400 Diastolic blood pressure 82 mm[Hg] Dr. Chema Perry Work Phone: [facility] 02-12-2023 14:09-0400 Heart rate 82 /min Dr. Chema Perry Work Phone: [facility] 02-12-2023 14:09-0400 Respiratory rate 16 /min Dr. Chema Perry Work Phone: [facility] 02-12-2023 14:09-0400 SaO2% (BldA) [Mass fraction] 91 % Dr. Chema Perry Work Phone: [facility] 02-12-2023 14:09-0400 Systolic blood pressure 147 mm[Hg] Dr. Chema Perry Work Phone: [facility] 01-29-2023 15:38-0400 Body height 149.[address] Chema Perry Work Phone: [facility] 01-29-2023 15:38-0400 Body mass index (BMI) [Ratio] 23.1 kg/m2 Dr. Chema Perry Work Phone: [facility] 01-29-2023 15:38-0400 Body temperature 97.4 [degF] Dr. Chema Perry Work Phone: [facility] 01-29-2023 15:38-0400 Body weight 51.[address] Chema Perry Work Phone: [facility] 01-29-2023 15:38-0400 Diastolic blood pressure 82 mm[Hg] Dr. Chema Perry Work Phone: [facility] 01-29-2023 15:38-0400 Heart rate 78 /min Dr. Chema Perry Work Phone: [facility] 01-29-2023 15:38-0400 Respiratory rate 16 /min Dr. Chema Perry Work Phone: [facility] 01-29-2023 15:38-0400 SaO2% (BldA) [Mass fraction] 92 % Dr. Chema Perry Work Phone: [facility] 01-29-2023 15:38-0400 Systolic blood pressure 130 mm[Hg] Dr. Chema Perry Work Phone: [facility] 01-20-2023 09:09-0400 Body temperature 98 [degF] Dr. Chema Perry Work Phone: [facility] 01-20-2023 09:09-0400 Diastolic blood pressure 66 mm[Hg] Dr. Chema Perry Work Phone: [facility] 01-20-2023 09:09-0400 Heart rate 70 /min Dr. Chema Perry Work Phone: [facility] 01-20-2023 09:09-0400 Respiratory rate 16 /min Dr. Chema Perry Work Phone: [facility] 01-20-2023 09:09-0400 SaO2% (BldA) [Mass fraction] 94 % Dr. Chema Perry Work Phone: [facility] 01-20-2023 09:09-0400 Systolic blood pressure 108 mm[Hg] Dr. Chema Perry Work Phone: [facility] 01-15-2023 13:53-0400 Body height 149.[address] Chema Perry Work Phone: [facility] 01-15-2023 13:53-0400 Body mass index (BMI) [Ratio] 23.1 kg/m2 Dr. Chema Perry Work Phone: [facility] 01-15-2023 13:53-0400 Body temperature 97.4 [degF] Dr. Chema Perry Work Phone: [facility] 01-15-2023 13:53-0400 Body weight 51.[address] Chema Perry Work Phone: [facility] 01-15-2023 13:53-0400 Diastolic blood pressure 74 mm[Hg] Dr. Chema Perry Work Phone: [facility] 01-15-2023 13:53-0400 Heart rate 90 /min Dr. Chema Perry Work Phone: [facility] 01-15-2023 13:53-0400 Respiratory rate 17 /min Dr. Chema Perry Work Phone: [facility] 01-15-2023 13:53-0400 SaO2% (BldA) [Mass fraction] 97 % Dr. Chema Perry Work Phone: [facility] 01-15-2023 13:53-0400 Systolic blood pressure 130 mm[Hg] Dr. Chema Perry Work Phone: [facility] 01-08-2023 11:45-0400 Body mass index (BMI) [Ratio] 22.6 kg/m2 Dr. Chema Perry Work Phone: [facility] 01-08-2023 11:45-0400 Body weight 50.[address] Chema Perry Work Phone: [facility] 01-08-2023 11:45-0400 Diastolic blood pressure 71 mm[Hg] Dr. Chema Perry Work Phone: [facility] 01-08-2023 11:45-0400 Heart rate 72 /min Dr. Chema Perry Work Phone: [facility] 01-08-2023 11:45-0400 Respiratory rate 16 /min Dr. Chema Perry Work Phone: [facility] 01-08-2023 11:45-0400 Systolic blood pressure 110 mm[Hg] Dr. Chema Perry Work Phone: [facility] 01-02-2023 14:30-0400 Body mass index (BMI) [Ratio] 22.8 kg/m2 Dr. Chema Perry Work Phone: [facility] 01-02-2023 14:30-0400 Body temperature 97.8 [degF] Dr. Chema Perry Work Phone: [facility] 01-02-2023 14:30-0400 Body weight 51.[address] Chema Perry Work Phone: [facility] 01-02-2023 14:30-0400 Diastolic blood pressure 74 mm[Hg] Dr. Chema Perry Work Phone: [facility] 01-02-2023 14:30-0400 Heart rate 82 /min Dr. Chema Perry Work Phone: [facility] 01-02-2023 14:30-0400 Respiratory rate 16 /min Dr. Chema Perry Work Phone: [facility] 01-02-2023 14:30-0400 SaO2% (BldA) [Mass fraction] 94 % Dr. Chema Perry Work Phone: [facility] 01-02-2023 14:30-0400 Systolic blood pressure 128 mm[Hg] Dr. Chema Perry Work Phone: [facility] 01-01-2023 11:15-0400 Body mass index (BMI) [Ratio] 22.2 kg/m2 Dr. Chema Perry Work Phone: [facility] 01-01-2023 11:15-0400 Body temperature 97.6 [degF] Dr. Chema Perry Work Phone: [facility] 01-01-2023 11:15-0400 Body weight 49.[address] Chema Perry Work Phone: [facility] 01-01-2023 11:15-0400 Diastolic blood pressure 77 mm[Hg] Dr. Chema Perry Work Phone: [facility] 01-01-2023 11:15-0400 Heart rate 80 /min Dr. Chema Perry Work Phone: [facility] 01-01-2023 11:15-0400 Respiratory rate 18 /min Dr. Chema Perry Work Phone: [facility] 01-01-2023 11:15-0400 SaO2% (BldA) [Mass fraction] 93 % Dr. Chema Perry Work Phone: [facility] 01-01-2023 11:15-0400 Systolic blood pressure 124 mm[Hg] Dr. Chema Perry Work Phone: [facility] 12-25-2022 14:04-0400 Body temperature 98.3 [degF] Dr. Chema Perry Work Phone: [facility] 12-25-2022 14:04-0400 Diastolic blood pressure 72 mm[Hg] Dr. Chema Perry Work Phone: [facility] 12-25-2022 14:04-0400 Heart rate 74 /min Dr. Chema Perry Work Phone: [facility] 12-25-2022 14:04-0400 Respiratory rate 17 /min Dr. Chema Perry Work Phone: [facility] 12-25-2022 14:04-0400 SaO2% (BldA) [Mass fraction] 91 % Dr. Chema Perry Work Phone: [facility] 12-25-2022 14:04-0400 Systolic blood pressure 116 mm[Hg] Dr. Chema Perry Work Phone: [facility] 11-23-2022 11:14-0400 Body height 149.[address] Chema Perry Work Phone: [facility] 11-23-2022 11:14-0400 Body mass index (BMI) [Ratio] 23 kg/m2 Dr. Chema Perry Work Phone: [facility] 11-23-2022 11:14-0400 Body temperature 97.8 [degF] Dr. Chema Perry Work Phone: [facility] 11-23-2022 11:14-0400 Body weight 51.[address] Chema Perry Work Phone: [facility] 11-13-2022 12:59-0400 Body weight 49.9 kg Laisha Lizarraga APRN.MANAGEMENT TECHNICIAN Work Phone: [facility] 11-13-2022 12:59-0400 Diastolic blood pressure 69 mm[Hg] Laisha Lizarraga APRN.MANAGEMENT TECHNICIAN Work Phone: [facility] 11-13-2022 12:59-0400 Heart rate 77 /min Laisha Lizarraga APRN.MANAGEMENT TECHNICIAN Work Phone: [facility] 11-13-2022 12:59-0400 Systolic blood pressure 113 mm[Hg] Laisha Lizarraga APRN.CNP Work Phone: [facility] 10-23-2022 13:11-0500 Body temperature 98.5 [degF] Dr. Chema Perry Work Phone: [facility] 10-23-2022 13:11-0500 Diastolic blood pressure 78 mm[Hg] Dr. Chema Perry Work Phone: [facility] 10-23-2022 13:11-0500 Heart rate 76 /min Dr. Chema Perry Work Phone: [facility] 10-23-2022 13:11-0500 Respiratory rate 14 /min Dr. Chema Perry Work Phone: [facility] 10-23-2022 13:11-0500 SaO2% (BldA) [Mass fraction] 98 % Dr. Chema Perry Work Phone: [facility] 10-23-2022 13:11-0500 Systolic blood pressure 122 mm[Hg] Dr. Chema Perry Work Phone: [facility] 10-21-2022 13:08-0500 Body temperature 98.2 [degF] Dr. Chema Perry Work Phone: [facility] 10-21-2022 13:08-0500 Body weight 54.[address] Chema Perry Work Phone: [facility] 10-21-2022 13:08-0500 Diastolic blood pressure 74 mm[Hg] Dr. Chema Perry Work Phone: [facility] 10-21-2022 13:08-0500 Heart rate 87 /min Dr. Chema Perry Work Phone: [facility] 10-21-2022 13:08-0500 Respiratory rate 16 /min Dr. Chema Perry Work Phone: [facility] 10-21-2022 13:08-0500 SaO2% (BldA) [Mass fraction] 93 % Dr. Chema Perry Work Phone: [facility] 10-21-2022 13:08-0500 Systolic blood pressure 128 mm[Hg] Dr. Chema Perry Work Phone: [facility] 10-16-2022 17:21-0500 Body height 149.[address] Chema Perry Work Phone: [facility] 10-16-2022 17:21-0500 Body mass index (BMI) [Ratio] 24.1 kg/m2 Dr. Chema Perry Work Phone: [facility] 10-16-2022 17:21-0500 Body temperature 98.2 [degF] Dr. Chema Perry Work Phone: [facility] 10-16-2022 17:21-0500 Body weight 54.[address] Chema Perry Work Phone: [facility] 10-16-2022 17:21-0500 Diastolic blood pressure 92 mm[Hg] Dr. Chema Perry Work Phone: [facility] 10-16-2022 17:21-0500 Heart rate 81 /min Dr. Chema Perry Work Phone: [facility] 10-16-2022 17:21-0500 Respiratory rate 14 /min Dr. Chema Perry Work Phone: [facility] 10-16-2022 17:21-0500 SaO2% (BldA) [Mass fraction] 94 % Dr. Chema Perry Work Phone: [facility] 10-16-2022 17:21-0500 Systolic blood pressure 160 mm[Hg] Dr. Chema Perry Work Phone: [facility] 09-21-2022 10:53-0500 Body temperature 98.2 [degF] Dr. Chema Perry Work Phone: [facility] 09-21-2022 10:53-0500 Diastolic blood pressure 60 mm[Hg] Dr. Chema Perry Work Phone: [facility] 09-21-2022 10:53-0500 Heart rate 83 /min Dr. Chema Perry Work Phone: [facility] 09-21-2022 10:53-0500 Respiratory rate 14 /min Dr. Chema Perry Work Phone: [facility] 09-21-2022 10:53-0500 SaO2% (BldA) [Mass fraction] 95 % Dr. Chema Perry Work Phone: [facility] 09-21-2022 10:53-0500 Systolic blood pressure 104 mm[Hg] Dr. Chema Perry Work Phone: [facility] 07-24-2022 15:46-0500 Body temperature 96.8 [degF] Dr. Chema Perry Work Phone: [facility] 07-24-2022 15:46-0500 Body weight 56.[address] Chema Perry Work Phone: [facility] 07-24-2022 15:46-0500 Diastolic blood pressure 86 mm[Hg] Dr. Chema Perry Work Phone: [facility] 07-24-2022 15:46-0500 Heart rate 90 /min Dr. Chema Perry Work Phone: [facility] 07-24-2022 15:46-0500 Respiratory rate 16 /min Dr. Chema Perry Work Phone: [facility] 07-24-2022 15:46-0500 SaO2% (BldA) [Mass fraction] 91 % Dr. Chema Perry Work Phone: [facility] 07-24-2022 15:46-0500 Systolic blood pressure 134 mm[Hg] Dr. Chema Perry Work Phone: [facility] 07-22-2022 14:41-0500 Body height 149.[address] Arun Ramos Work Phone: [facility] 07-22-2022 14:41-0500 Body mass index (BMI) [Ratio] 25.2 kg/m2 Dr. Arun Ramos Work Phone: [facility] 07-22-2022 14:41-0500 Body temperature 98 [degF] Dr. Arun Ramos Work Phone: [facility] 07-22-2022 14:41-0500 Body weight 56.[address] Arun Ramos Work Phone: [facility] 07-22-2022 14:41-0500 Diastolic blood pressure 67 mm[Hg] Dr. Arun Ramos Work Phone: [facility] 07-22-2022 14:41-0500 Heart rate 90 /min Dr. Arun Ramos Work Phone: [facility] 07-22-2022 14:41-0500 Respiratory rate 18 /min Dr. Arun Ramos Work Phone: [facility] 07-22-2022 14:41-0500 SaO2% (BldA) [Mass fraction] 95 % Dr. Arun Ramos Work Phone: [facility] 07-22-2022 14:41-0500 Systolic blood pressure 109 mm[Hg] Dr. Arun Ramos Work Phone: [facility] 07-13-2022 03:28-0500 Diastolic blood pressure 68 mm[Hg] Dr. Arun Ramos Work Phone: [facility] 07-13-2022 03:28-0500 Heart rate 78 /min Dr. Arun Ramos Work Phone: [facility] 07-13-2022 03:28-0500 Respiratory rate 16 /min Dr. Arun Ramos Work Phone: [facility] 07-13-2022 03:28-0500 SaO2% (BldA) [Mass fraction] 97 % Dr. Arun Ramos Work Phone: [facility] 07-13-2022 03:28-0500 Systolic blood pressure 135 mm[Hg] Dr. Arun Ramos Work Phone: [facility] 07-13-2022 00:21-0500 Body height 149.[address] Arun Ramos Work Phone: [facility] Work Phone: 07-13-2022 00:21-0500 Body mass index (BMI) [Ratio] 25.7 kg/m2 Dr. Arun Ramos Work Phone: [facility] 07-13-2022 00:21-0500 Body temperature 97.8 [degF] Dr. Arun Ramos Work Phone: [facility] 07-13-2022 00:21-0500 Body weight 57.[address] Arun Ramos Work Phone: [facility] 07-07-2022 09:10-0500 Body mass index (BMI) [Ratio] 24.4 kg/m2 Dr. Arun Ramos Work Phone: [facility] 07-07-2022 09:10-0500 Body temperature 99.2 [degF] Dr. Arun Ramos Work Phone: [facility] 07-07-2022 09:10-0500 Body weight 54.[address] Arun Ramos Work Phone: [facility] 07-07-2022 09:10-0500 Diastolic blood pressure 70 mm[Hg] Dr. Arun Ramos Work Phone: [facility] 07-07-2022 09:10-0500 Heart rate 81 /min Dr. Arun Ramos Work Phone: [facility] 07-07-2022 09:10-0500 Respiratory rate 16 /min Dr. Arun Ramos Work Phone: [facility] 07-07-2022 09:10-0500 SaO2% (BldA) [Mass fraction] 96 % Dr. Arun Ramos Work Phone: 1(495)715-284492 [place] [address] 07-07-2022 09:10-0500 Systolic blood pressure 118 mm[Hg] Dr. Arun Ramos Work Phone: 4(478)395-017592 [place] [address] 07-04-2022 13:35-0500 Body temperature 97.9 [degF] Dr. Arun Ramos Work Phone: 7(405)488-159150 [place] [address] 07-04-2022 13:35-0500 Body weight 56.[address] Arun Ramos Work Phone: 3(735)940-079650 [place] [address] 07-04-2022 13:35-0500 Diastolic blood pressure 81 mm[Hg] Dr. Arun Ramos Work Phone: 3(624)386-631750 [place] [address] 07-04-2022 13:35-0500 Heart rate 87 /min Dr. Arun Ramos Work Phone: 2(941)132-888350 [place] [address] 07-04-2022 13:35-0500 Respiratory rate 18 /min Dr. Arun Ramos Work Phone: 3(870)158-794250 [place] [address] 07-04-2022 13:35-0500 SaO2% (BldA) [Mass fraction] 90 % Dr. Arun Ramos Work Phone: 2(491)832-266892 [place] [address] 07-04-2022 13:35-0500 Systolic blood pressure 132 mm[Hg] Dr. Arun Ramos Work Phone: 4(736)998-867592 [place] [address] 06-25-2022 13:14-0500 Body mass index (BMI) [Ratio] 25.2 kg/m2 Dr. Arun Ramos Work Phone: 3(057)878-279692 [place] [address] 06-25-2022 13:14-0500 Body temperature 97.1 [degF] Dr. Arun Raoms Work Phone: 8(296)295-722650 [place] [address] 06-25-2022 13:14-0500 Body weight 56.[address] Arun Ramos Work Phone: 7(840)567-511050 [place] [address] 06-25-2022 13:14-0500 Diastolic blood pressure 70 mm[Hg] Dr. Arun Ramos Work Phone: [facility] 06-25-2022 13:14-0500 Heart rate 78 /min Dr. Arun Ramos Work Phone: [facility] 06-25-2022 13:14-0500 Respiratory rate 18 /min Dr. Arun Ramos Work Phone: [facility] 06-25-2022 13:14-0500 SaO2% (BldA) [Mass fraction] 94 % Dr. Arun Ramos Work Phone: [facility] 06-25-2022 13:14-0500 Systolic blood pressure 122 mm[Hg] Dr. Arun Ramos Work Phone: [facility] 06-07-2022 13:04-0400 Body mass index (BMI) [Ratio] 24.7 kg/m2 Dr. Arun Ramos Work Phone: [facility] 06-07-2022 13:04-0400 Body weight 55.[address] Arun Ramos Work Phone: [facility] 06-07-2022 13:04-0400 Diastolic blood pressure 70 mm[Hg] Dr. Arun Ramos Work Phone: [facility] 06-07-2022 13:04-0400 Heart rate 80 /min Dr. Arun Ramos Work Phone: [facility] 06-07-2022 13:04-0400 Respiratory rate 18 /min Dr. Arun Ramos Work Phone: [facility] 06-07-2022 13:04-0400 Systolic blood pressure 122 mm[Hg] Dr. Arun Rmaos Work Phone: [facility] 05-13-2022 14:11-0400 Body temperature 98 [degF] Dr. Arun Ramos Work Phone: [facility] Work Phone: 05-13-2022 14:11-0400 Body weight 55.[address] Arun Ramos Work Phone: [facility] Work Phone: 05-13-2022 14:11-0400 Diastolic blood pressure 89 mm[Hg] Dr. Arun Ramos Work Phone: [facility] Work Phone: 05-13-2022 14:11-0400 Heart rate 87 /min Dr. Arun Ramos Work Phone: [facility] Work Phone: 05-13-2022 14:11-0400 Respiratory rate 16 /min Dr. Arun Ramos Work Phone: [facility] Work Phone: 05-13-2022 14:11-0400 SaO2% (BldA) [Mass fraction] 95 % Dr. Arun Ramos Work Phone: [facility] Work Phone: 05-13-2022 14:11-0400 Systolic blood pressure 149 mm[Hg] Dr. Arun Ramos Work Phone: [facility] Work Phone: 04-25-2022 11:37-0400 Body temperature 97 [degF] Dr. Arun Ramos Work Phone: [facility] Work Phone: 04-25-2022 11:37-0400 Body weight 56.[address] Arun Ramos Work Phone: [facility] Work Phone: 04-25-2022 11:37-0400 Diastolic blood pressure 77 mm[Hg] Dr. Arun Ramos Work Phone: [facility] Work Phone: 04-25-2022 11:37-0400 Heart rate 76 /min Dr. Arun Ramos Work Phone: [facility] Work Phone: 04-25-2022 11:37-0400 Respiratory rate 18 /min Dr. Arun Ramos Work Phone: [facility] Work Phone: 04-25-2022 11:37-0400 SaO2% (BldA) [Mass fraction] 90 % Dr. Arun Ramos Work Phone: [facility] Work Phone: 04-25-2022 11:37-0400 Systolic blood pressure 131 mm[Hg] Dr. Arun Ramos Work Phone: [facility] Work Phone: 04-11-2022 12:48-0400 Body weight 53.07 kg Laisha Lizarraga APRN.MANAGEMENT TECHNICIAN Work Phone: [facility] 04-11-2022 12:48-0400 Diastolic blood pressure 77 mm[Hg] Laisha Lizarraga APRN.MANAGEMENT TECHNICIAN Work Phone: [facility] 04-11-2022 12:48-0400 Heart rate 75 /min Laisha Lizarraga APRN.MANAGEMENT TECHNICIAN Work Phone: [facility] 04-11-2022 12:48-0400 Systolic blood pressure 117 mm[Hg] Laisha Lizarraga APRN.MANAGEMENT TECHNICIAN Work Phone: [facility] 03-27-2022 05:59-0400 Body mass index (BMI) [Ratio] 25.1 kg/m2 Dr. Arun Ramos Work Phone: [facility] Work Phone: 03-27-2022 05:59-0400 Body temperature 98.6 [degF] Dr. Arun Ramos Work Phone: [facility] Work Phone: 03-27-2022 05:59-0400 Body weight 56.[address] Arun Ramos Work Phone: [facility] Work Phone: 03-27-2022 05:59-0400 Diastolic blood pressure 68 mm[Hg] Dr. Arun Ramos Work Phone: [facility] Work Phone: 03-27-2022 05:59-0400 Heart rate 90 /min Dr. Arun Ramos Work Phone: [facility] Work Phone: 03-27-2022 05:59-0400 Respiratory rate 16 /min Dr. Arun Ramos Work Phone: [facility] Work Phone: 03-27-2022 05:59-0400 SaO2% (BldA) [Mass fraction] 92 % Dr. Arun Ramos Work Phone: [facility] Work Phone: 03-27-2022 05:59-0400 Systolic blood pressure 111 mm[Hg] Dr. Arun Ramos Work Phone: [facility] Work Phone: 03-21-2022 14:11-0400 Body mass index (BMI) [Ratio] 24.9 kg/m2 Dr. Arun Ramos Work Phone: [facility] Work Phone: 03-21-2022 14:11-0400 Body temperature 97.6 [degF] Dr. Arun Ramos Work Phone: [facility] Work Phone: 03-21-2022 14:11-0400 Body weight 56.[address] Arun Ramos Work Phone: [facility] Work Phone: 03-21-2022 14:11-0400 Diastolic blood pressure 82 mm[Hg] Dr. Arun Ramos Work Phone: [facility] Work Phone: 03-21-2022 14:11-0400 Heart rate 80 /min Dr. Arun Ramos Work Phone: [facility] Work Phone: 03-21-2022 14:11-0400 Respiratory rate 16 /min Dr. Arun Ramos Work Phone: [facility] Work Phone: 03-21-2022 14:11-0400 SaO2% (BldA) [Mass fraction] 98 % Dr. Arun Ramos Work Phone: [facility] Work Phone: 03-21-2022 14:11-0400 Systolic blood pressure 142 mm[Hg] Dr. Arun Ramos Work Phone: [facility] Work Phone: 03-15-2022 19:42-0400 Body height 149.[address] Arun Ramos Work Phone: [facility] Work Phone: 03-15-2022 19:42-0400 Body mass index (BMI) [Ratio] 26.4 kg/m2 Dr. Arun Ramos Work Phone: [facility] Work Phone: 03-15-2022 19:42-0400 Body temperature 98 [degF] Dr. Arun Ramos Work Phone: [facility] Work Phone: 03-15-2022 19:42-0400 Body weight 59.[address] Arun Ramos Work Phone: [facility] Work Phone: 03-15-2022 19:42-0400 Diastolic blood pressure 83 mm[Hg] Dr. Arun Ramos Work Phone: [facility] Work Phone: 03-15-2022 19:42-0400 Heart rate 84 /min Dr. Arun Ramos Work Phone: [facility] Work Phone: 03-15-2022 19:42-0400 Respiratory rate 18 /min Dr. Arun Ramos Work Phone: [facility] Work Phone: 03-15-2022 19:42-0400 SaO2% (BldA) [Mass fraction] 93 % Dr. Arun Ramos Work Phone: [facility] Work Phone: 03-15-2022 19:42-0400 Systolic blood pressure 144 mm[Hg] Dr. Arun Ramos Work Phone: [facility] Work Phone: 02-15-2022 17:00-0400 Respiratory rate 14 /min Dr. Arun Ramos Work Phone: [facility] Work Phone: 02-15-2022 17:00-0400 SaO2% (BldA) [Mass fraction] 99 % Dr. Arun Ramos Work Phone: [facility] Work Phone: 02-15-2022 15:00-0400 Diastolic blood pressure 81 mm[Hg] Dr. Arun Ramos Work Phone: [facility] Work Phone: 02-15-2022 15:00-0400 Heart rate 67 /min Dr. Arun Ramos Work Phone: [facility] Work Phone: 02-15-2022 15:00-0400 Systolic blood pressure 122 mm[Hg] Dr. Arun Ramos Work Phone: [facility] Work Phone: 02-15-2022 09:48-0400 Body height 149.[address] Arun Ramos Work Phone: [facility] Work Phone: 02-15-2022 09:48-0400 Body mass index (BMI) [Ratio] 24.9 kg/m2 Dr. Arun Ramos Work Phone: [facility] Work Phone: 02-15-2022 09:48-0400 Body temperature 98.3 [degF] Dr. Arun Ramos Work Phone: [facility] Work Phone: 02-15-2022 09:48-0400 Body weight [address] Arun Ramos Work Phone: [facility] Work Phone: 01-23-2022 10:42-0400 Body weight 53.98 [...] 152.[address] Arun Ramos Work Phone: [facility] Work Phone: 01-10-2022 13:19-0400 Body mass index (BMI) [Ratio] 23.4 kg/m2 Dr. Arun Ramos Work Phone: [facility] Work Phone: 01-10-2022 13:19-0400 Body temperature 97.4 [degF] Dr. Arun Ramos Work Phone: [facility] Work Phone: 01-10-2022 13:19-0400 Body weight 54.[address] Arun Ramos Work Phone: [facility] Work Phone: 01-10-2022 13:19-0400 Diastolic blood pressure 76 mm[Hg] Dr. Arun Ramos Work Phone: [facility] Work Phone: 01-10-2022 13:19-0400 Heart rate 84 /min Dr. Arun Ramos Work Phone: [facility] Work Phone: 01-10-2022 13:19-0400 Respiratory rate 16 /min Dr. Arun Ramos Work Phone: [facility] Work Phone: 01-10-2022 13:19-0400 SaO2% (BldA) [Mass fraction] 92 % Dr. Arun Ramos Work Phone: [facility] Work Phone: 01-10-2022 13:19-0400 Systolic blood pressure 115 mm[Hg] Dr. Arun Ramos Work Phone: [facility] Work Phone: 11-13-2021 11:13-0400 Body weight 56.25 kg Laisha Lizarraga APRN.MANAGEMENT TECHNICIAN Work Phone: [facility] 11-13-2021 11:13-0400 Diastolic blood pressure 68 mm[Hg] Laisha Lizarraga APRN.MANAGEMENT TECHNICIAN Work Phone: [facility] 11-13-2021 11:13-0400 Heart rate 83 /min Laisha Lizarraga APRN.MANAGEMENT TECHNICIAN Work Phone: [facility] 11-13-2021 11:13-0400 Systolic blood pressure 125 mm[Hg] Laisha Lizarraga APRN.MANAGEMENT TECHNICIAN Work Phone: [facility] 11-07-2021 14:12-0400 Body height 149.[address] Arun Ramos Work Phone: [facility] Work Phone: 11-07-2021 14:12-0400 Body mass index (BMI) [Ratio] 23.2 kg/m2 Dr. Arun Ramos Work Phone: [facility] Work Phone: 11-07-2021 14:12-0400 Body temperature 97.2 [degF] Dr. Arun Ramos Work Phone: [facility] Work Phone: 11-07-2021 14:12-0400 Body weight 52.[address] Arun Ramos Work Phone: [facility] Work Phone: 11-07-2021 14:12-0400 Diastolic blood pressure 81 mm[Hg] Dr. Arun Ramos Work Phone: [facility] Work Phone: 11-07-2021 14:12-0400 Heart rate 100 /min Dr. Arun Ramos Work Phone: [facility] Work Phone: 11-07-2021 14:12-0400 Respiratory rate 19 /min Dr. Arun Ramos Work Phone: [facility] Work Phone: 11-07-2021 14:12-0400 SaO2% (BldA) [Mass fraction] 91 % Dr. Arun Ramos Work Phone: [facility] Work Phone: 11-07-2021 14:12-0400 Systolic blood pressure 110 mm[Hg] Dr. Arun Ramos Work Phone: [facility] Work Phone: 10-08-2021 19:03-0500 Body temperature 97.7 [degF] Dr. Arun Ramos Work Phone: [facility] Work Phone: 10-08-2021 19:03-0500 Diastolic blood pressure 88 mm[Hg] Dr. Arun Ramos Work Phone: [facility] Work Phone: 10-08-2021 19:03-0500 Heart rate 81 /min Dr. Arun Ramos Work Phone: [facility] Work Phone: 10-08-2021 19:03-0500 Respiratory rate 20 /min Dr. Arun Ramos Work Phone: [facility] Work Phone: 10-08-2021 19:03-0500 SaO2% (BldA) [Mass fraction] 92 % Dr. Arun Ramos Work Phone: [facility] Work Phone: 10-08-2021 19:03-0500 Systolic blood pressure 134 mm[Hg] Dr. Arun Ramos Work Phone: [facility] Work Phone: 10-06-2021 15:46-0500 Body weight 55.[address] Arun Ramos Work Phone: [facility] Work Phone: 10-05-2021 17:32-0500 Body mass index (BMI) [Ratio] 24.8 kg/m2 Dr. Arun Ramos Work Phone: [facility] Work Phone: 10-04-2021 10:45-0500 Body temperature 97.3 [degF] Dr. Arun Ramos Work Phone: [facility] Work Phone: 10-04-2021 10:45-0500 Diastolic blood pressure 80 mm[Hg] Dr. Arun Ramos Work Phone: [facility] Work Phone: 10-04-2021 10:45-0500 Heart rate 90 /min Dr. Arun Ramos Work Phone: [facility] Work Phone: 10-04-2021 10:45-0500 Respiratory rate 20 /min Dr. Arun Ramos Work Phone: [facility] Work Phone: 10-04-2021 10:45-0500 SaO2% (BldA) [Mass fraction] 92 % Dr. Arun Ramos Work Phone: [facility] Work Phone: 10-04-2021 10:45-0500 Systolic blood pressure 134 mm[Hg] Dr. Arun Ramos Work Phone: [facility] Work Phone: 10-02-2021 09:01-0500 Body weight 57.[address] Arun Ramos Work Phone: [facility] Work Phone: 09-27-2021 19:53-0500 Inhaled oxygen concentration 21 % Dr. Arun Ramos Work Phone: [facility] Work Phone: 09-04-2021 12:15-0500 Body mass index (BMI) [Ratio] 27 kg/m2 Dr. Arun Ramos Work Phone: [facility] Work Phone: 09-04-2021 07:30-0500 Body temperature 97.8 [degF] Dr. Arun Ramos Work Phone: [facility] Work Phone: 09-04-2021 07:30-0500 Diastolic blood pressure 85 mm[Hg] Dr. Arun Ramos Work Phone: [facility] Work Phone: 09-04-2021 07:30-0500 Heart rate 79 /min Dr. Arun Ramos Work Phone: [facility] Work Phone: 09-04-2021 07:30-0500 Respiratory rate 18 /min Dr. Arun Ramos Work Phone: [facility] Work Phone: 09-04-2021 07:30-0500 SaO2% (BldA) [Mass fraction] 94 % Dr. Arun Ramos Work Phone: [facility] Work Phone: 09-04-2021 07:30-0500 Systolic blood pressure 154 mm[Hg] Dr. Arun Ramos Work Phone: [facility] Work Phone: 09-02-2021 18:34-0500 Body mass index (BMI) [Ratio] 27.3 kg/m2 Dr. Arun Ramos Work Phone: [facility] Work Phone: 09-02-2021 18:34-0500 Body weight 61.[address] Arun Ramos Work Phone: [facility] Work Phone: 09-01-2021 17:54-0500 Diastolic blood pressure 85 mm[Hg] Dr. Arun Ramos Work Phone: [facility] Work Phone: 09-01-2021 17:54-0500 Heart rate 74 /min Dr. Arun Ramos Work Phone: [facility] Work Phone: 09-01-2021 17:54-0500 Respiratory rate 19 /min Dr. Arun Ramos Work Phone: [facility] Work Phone: 09-01-2021 17:54-0500 SaO2% (BldA) [Mass fraction] 92 % Dr. Arun Ramos Work Phone: [facility] Work Phone: 09-01-2021 17:54-0500 Systolic blood pressure 156 mm[Hg] Dr. Arun Ramos Work Phone: [facility] Work Phone: 09-01-2021 16:32-0500 Body mass index (BMI) [Ratio] 24 kg/m2 Dr. Arun Ramos Work Phone: [facility] Work Phone: 09-01-2021 16:32-0500 Body temperature 98.5 [degF] Dr. Arun Ramos Work Phone: [facility] Work Phone: 09-01-2021 16:32-0500 Body weight 63.[address] Arun Ramos Work Phone: [facility] Work Phone: 08-09-2021 11:59-0500 Body mass index (BMI) [Ratio] 28.3 kg/m2 Dr. Arun Ramos Work Phone: [facility] Work Phone: 08-09-2021 11:59-0500 Body temperature 97.5 [degF] Dr. Arun Ramos Work Phone: [facility] Work Phone: 08-09-2021 11:59-0500 Body weight 63.[address] Arun Ramos Work Phone: [facility] Work Phone: 08-09-2021 11:59-0500 Diastolic blood pressure 86 mm[Hg] Dr. Arun Ramos Work Phone: [facility] Work Phone: 08-09-2021 11:59-0500 Heart rate 80 /min Dr. Arun Ramos Work Phone: [facility] Work Phone: 08-09-2021 11:59-0500 Respiratory rate 16 /min Dr. Arun Ramos Work Phone: [facility] Work Phone: 08-09-2021 11:59-0500 SaO2% (BldA) [Mass fraction] 98 % Dr. Arun Ramos Work Phone: [facility] Work Phone: 08-09-2021 11:59-0500 Systolic blood pressure 136 mm[Hg] Dr. Arun Ramos Work Phone: [facility] Work Phone: Encounters Encounter Date Encounter Type Care Provider Facility Start: 02-06-2025 Evaluation and management of inpatient Dr. Vincent Camp DO -Medical Surgical 3 Work Phone: Start: 02-06-[address] Chema Perry MD Work Phone: [facility] Work Phone: Start: 02-06-2025 Non-patient / Non-visit Dr. Damien Burleson MD -[facility] Start: 02-03-2025 End: 02-03-2025 Emergency department patient visit Dr. Chema Perry MD Work Phone: -Emergency Department Work Phone: Start: 02-01-2025 ambulatory Chema Perry Facility:[facility] Start: 02-01-[address] 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, psychotic disturbance, mood disturbance, or anxiety (HCC) (Primary Dx); Physical deconditioning; Gait instability; Fine motor impairment; Dizziness; Cognitive communication deficit; Idiopathic peripheral neuropathy; Restless legs syndrome Start: 12-23-2024 End: 12-23-2024 ambulatory LAISHA LIZARRAGA Facility:[facility] Start: 12-20-2024 End: 12-20-2024 Patient encounter [...] of gait Start: 12-20-2024 End: 12-20-2024 ambulatory QARAB DUNG Facility:[facility] Start: 12-19-2024 End: 12-19-2024 Patient encounter procedure Young VALENCIA Work Phone: [facility] Comment on above: Skin tear of right forearm without compl ication, initial encounter (Primary Dx) Start: 12-19-2024 End: 12-19-2024 ambulatory YOUNG LORD Facility:[facility] Start: 12-16-2024 End: 12-16-2024 Refill Suorav Marcial MD Work Phone: Cardiology Comment on above: Refill Request Start: 12-09-2024 End: 12-09-2024 ambulatory LUH DEAN Facility:[facility] Start: 12-03-2024 End: 12-03-2024 ambulatory ANILA DE PAZ Facility:[facility] Start: 12-03-2024 End: 12-03-2024 Patient encounter procedure Anila De Paz MD Work Phone: General Surgery Comment on above: Hiatal hernia (Primary Dx) Start: 11-26-2024 End: 11-26-2024 Patient encounter procedure Radha Hesson OTR/L Work Phone: [facility] Comment on above: Fine motor impairment (Primary Dx); Weakness; Lack of coordination; Decreased activities of daily living (ADL) Start: 11-26-2024 End: 11-26-2024 ambulatory Radha Hesson OTR/L Work Phone: [facility] Start: 11-19-2024 End: 11-19-2024 Patient encounter procedure Radha Hesson OTR/L Work Phone: [facility] Comment on above: Fine motor impairment (Primary Dx); Weakness; Lack of coordination Start: 11-19-2024 End: 11-19-2024 ambulatory Radha Hesson OTR/L Work Phone: [facility] Start: 11-17-2024 End: 11-17-2024 Orders Only Raquel Null MD Work Phone: General Surgery Comment on above: Dilation of biliary tract (Primary Dx) Start: 11-15-2024 End: 11-17-2024 Evaluation and management of inpatient [facility] Facility:[facility] Start: 11-15-2024 End: 11-15-2024 Telephone encounter Taylor Forrest RN General Surgery Comment on above: Generalized abdominal pain (Primary Dx); Diarrhea, unspecified type Start: 11-12-2024 End: 11-12-2024 Patient encounter procedure Radha Street OTR/L Work Phone: [facility] Comment on above: Fine motor impairment (Primary Dx); Decreased activities of daily living (ADL); Lack of coordination; Weakness Start: 11-12-2024 End: 11-12-[address] OTR/L Work Phone: [facility] Start: 11-12-2024 End: 11-12-2024 Telephone encounter Pippa Fox RN General Surgery Start: 11-11-2024 End: 11-11-2024 ambulatory [facility] Facility:[facility] Start: 11-11-2024 End: 11-11-2024 Subsequent hospital visit by physician [facility] Cat Scan Comment on above: Nausea [R11.0] Start: 11-09-2024 End: 11-09-[address] Susan Emery DO Work Phone: [facility] Work Phone: Start: 11-09-2024 End: 11-09-[address] Chema Perry MD -Radiology, [facility] Work Phone: Start: 11-08-2024 End: 11-09-2024 ambulatory [facility] Facility:[facility] Start: 11-08-2024 End: 11-08-2024 E-mail encounter from caregiver Taylor Forrest RN General Surgery Start: 11-08-2024 End: 11-08-2024 Follow-up encounter Taylor Forrest RN General Surgery Comment on above: Follow-up on Questions Start: 11-05-2024 End: 11-05-2024 Patient encounter [address] Radha Street OTR/L Work Phone: [facility] Comment on above: Fine motor impairment (Primary Dx); Decreased activities of daily living (ADL); Lack of coordination; Weakness Start: 11-05-2024 End: 11-05-[address] OTR/L Work Phone: [facility] Start: 11-03-2024 End: 11-03-2024 Patient encounter procedure Deniceclair Jacobs PA-C Work Phone: Neurology Comment on above: Degeneration of intervertebral disc of l umbar region, unspecified whether pain present (Primary Dx); Left leg paresthesias; Right leg paresthesias; Ulnar neuropathy of right upper extremity Start: 11-03-2024 End: 11-03-2024 ambulatory DENICE JACOBS Facility:[facility] Start: 11-02-2024 End: 11-02-2024 Admission to same day surgery center Anila De Paz MD Work Phone: General Surgery Start: 11-02-2024 End: 11-02-2024 E-mail encounter from caregiver Anila De Paz MD Work Phone: General Surgery Start: 11-01-2024 End: 11-01-2024 ambulatory HUMZA CAMEJO Facility:[facility] Start: 11-01-2024 End: 11-01-2024 Patient encounter [...] 10-29-2024 End: 10-29-2024 ambulatory ANILA DE PAZ Facility:[facility] Start: 10-29-2024 End: 10-29-2024 Patient encounter procedure Radha Street OTR/L Work Phone: [facility] Comment on above: Decreased activities of daily living (AD L) (Primary Dx); Fine motor impairment; Lack of coordination; Weakness Start: 10-29-2024 End: 10-29-[address] OTR/L Work Phone: [facility] Start: 10-22-2024 End: 10-22-2024 Patient encounter procedure Sandra Vincent CRIMINAL INTELLIGENCE ANALYST-C -[facility] Work Phone: Start: 10-22-2024 End: 10-22-2024 ambulatory Chema Perry Facility:[facility] Start: 10-18-2024 End: 10-18-[address] Chema Perry MD Work Phone: [facility] Work Phone: Start: 10-18-2024 End: 10-18-[address] Chema Perry MD -Outpatient Breast Imaging Work Phone: Start: 10-17-2024 End: 10-18-2024 ambulatory Laisha Lizarraga WAVE SOLDER OFFBEARER.MANAGEMENT TECHNICIAN Work Phone: Neurology Comment on above: Primary Care Phyiscian (PCP) Start: 10-14-2024 End: 10-14-[address] Chema Perry MD -[facility] Work Phone: Start: 10-14-2024 End: 10-14-2024 ambulatory Chema Perry Facility:[facility] Start: 10-13-2024 End: 10-13-2024 ambulatory LAISHA LIZARRAGA Facility:[facility] Start: 10-13-2024 End: 10-13-2024 Office outpatient [...] Dx) Start: 10-08-2024 End: 10-08-2024 ambulatory ANILA AGUILARARRETE Facility:[facility] Start: 09-20-2024 End: 09-23-2024 Evaluation and management of inpatient [facility] Facility:[facility] Start: 09-18-2024 End: 09-18-2024 Emergency department patient visit Dr. Susan Emery DO -Emergency Department Work Phone: Start: 09-14-2024 End: 09-14-2024 ambulatory CHEMA PERRY Facility:[facility] Start: 09-14-2024 Encounter for other preprocedural examination ANILA DE PAZ [facility] Start: 09-14-2024 End: 09-14-2024 Office consultation new/estab patient 80 min Pacc Stuart 1 Work Phone: Pre Anesthesia Comment on [...] Start: 09-14-2024 End: 09-14-2024 Preprocedural examination done [facility] Rafita 1 Work Phone: [facility] Work Phone: Start: 09-14-2024 End: 09-14-2024 [facility] Facility:[facility] Start: 09-14-2024 Encounter for other preprocedural examination [facility] Start: 09-13-2024 End: 09-13-2024 Orders Only Alisa Haile MD Work Phone: Gastroenterology Comment on above: Choledocholithiasis (Primary Dx) 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] Start: 09-10-2024 End: 09-10-2024 ambulatory DENICE [facility] Neurology Comment on above: EMG Start: 09-10-2024 End: 09-10-2024 Patient encounter procedure Emg 2 Neur [facility] (Max Weight: 850) Neurology Start: 09-09-2024 End: 09-09-2024 Telephone encounter Jacqueline Noland LPN General Surgery Start: 09-08-2024 End: 09-08-2024 Orders Only Susan Srinivasan MD Work Phone: General Surgery Comment on above: Dilated pancreatic duct (Primary Dx) UPDATED Pre-op Instr uctions Patient Update Quality Control Tech - O ther (Update on EUS orders ) Start: 09-07-2024 End: 09-07-2024 [facility] Facility[facility] Start: 09-07-2024 End: 09-07-2024 Subsequent hospital visit by physician Mri [facility] (I-Stat/1.5t) Work Phone: Radiology Comment on [...] Instru ctions Start: 09-03-2024 End: 09-03-2024 ambulatory nAila De Paz MD Work Phone: General Surgery [...] Hospital Start: 08-25-2024 End: 08-25-2024 ambulatory QARAB DUGN Facility:[facility] Start: 08-25-2024 End: 08-25-2024 Admission to same day surgery center Taylor Forrest RN General Surgery Comment on above: Contact Information Start: 08-25-2024 End: 08-25-2024 E-mail encounter from caregiver Taylor Forrest RN General Surgery Start: 08-25-2024 End: 08-25-2024 Telephone encounter Taylor Forrest RN General Surgery Comment on above: Patient Question (Next Steps ) Start: 08-09-2024 End: 08-09-2024 ambulatory DENICE [facility] Facility[facility] Start: 08-06-2024 End: [facility] Start: 08-06-2024 End: 08-06-2024 Patient encounter procedure Denice Jacobs JOSE Work Phone: Neurology Comment on above: Neuropathy (Primary Dx); Paresthesia of both feet; Frequent falls Start: 08-03-2024 End: 08-03-2024 [facility] Facility[facility] Start: 08-03-2024 Encounter for other preprocedural examination SOURAV MARCIAL [facility] Start: 08-03-2024 End: 08-03-2024 Patient encounter procedure [...] Start: 08-02-2024 End: 08-02-2024 ambulatory HUMZA CAMEJO Facility:[facility] Start: 08-02-2024 End: 08-02-2024 Patient encounter procedure Humza Camejo MD Work Phone: Ophthalmology Comment on above: Primary open angle glaucoma (POAG) of elisa th eyes, severe stage Start: 07-21-2024 End: 07-21-2024 ambulatory CHRISTOPHER FULTON Facility:[facility] Start: 07-21-2024 End: 07-21-2024 Subsequent hospital visit by physician Eliazar Brown MD Work Phone: Gastroenterology Comment on above: Hiatal hernia [K44.9] Start: 07-19-2024 End: 07-19-[address] Christopher Turk -[facility] Work Phone: Start: 07-19-2024 End: 07-19-2024 ambulatory Christopher Beverleydustin Facility:[facility] Start: 07-19-2024 End: 07-19-2024 Telephone encounter Willa Torres APRN.CNP Work Phone: Pre Anesthesia Comment on above: Request Outside Medical Records Start: 07-16-2024 End: 07-16-2024 Preprocedural examination done Pacc Stuart 1 Work Phone: [facility] Start: 07-16-2024 End: 07-16-2024 PAT Pacc Rafita 1 Work Phone: Pre Anesthesia Comment on above: Pre-operative examination (Primary Dx); Dementia without behavioral disturbance (HCC); MS (multiple sclerosis) (HCC); History of complex partial epilepsy; Restless legs syndrome; 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 Christopher Turk DO -[facility] Work Phone: Start: 07-12-2024 End: 07-12-2024 ambulatory Chema Perry Facility:[facility] Start: 07-09-2024 End: 07-09-2024 ambulatory Christopher Turk Facility:[facility] Start: 07-09-2024 End: 07-09-[address] Christopher Turk DO -Physical Therapy Work Phone: Start: 07-09-2024 End: 07-09-2024 ambulatory [facility] Facility[facility] Start: 07-07-2024 End: 07-08-2024 Telephone encounter Fatimah Robbins RNmedical biller coder Comment on above: Patient Question (EGD Instructions neede d) Patient Question Start: 07-07-2024 End: 07-07-[address] Chema Perry MD [place] [place] [facility] Work Phone: Start: 07-07-2024 End: 07-07-2024 ambulatory Chema Perry Facility:[facility] Start: 07-06-2024 ambulatory Chema Perry Facility[facility] Start: 07-05-2024 End: 07-05-[address] 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, psychotic disturbance, mood disturbance, or anxiety (HCC) (Primary Dx); Physical deconditioning; Gait instability; Fine motor impairment; Dizziness; Idiopathic scoliosis and kyphoscoliosis; Multiple falls; Paresthesia of both feet Start: 06-24-2024 End: 06-24-2024 ambulatory ANILA AGUILARARRETE Facility:[facility] Start: 06-24-2024 End: 06-24-2024 Subsequent hospital visit by physician Em [facility] (I-Stat) Work Phone: Cat Scan Comment on above: Hiatal hernia [K44.9] Start: 06-23-2024 End: 06-23-2024 [facility] Facility[facility] Start: 06-18-2024 End: 06-18-2024 Preprocedural examination [...] Forrest RN General Surgery Comment on above: Quality Control Tech - Other (Chart prep) Start: 06-16-2024 End: 06-16-2024 ambulatory [facility] Facility:[facility] Start: 06-10-2024 End: 06-10-2024 Refill Humza Camejo MD Work Phone: Ophthalmology Comment on above: Refill Request Start: 06-07-2024 End: 06-07-2024 Emergency department patient visit Susan Emery Facility:[facility] Start: 06-05-2024 End: 06-05-2024 ambulatory [facility] Facility:[facility] Start: 05-17-2024 End: 05-17-[address] [facility] Facility[facility] Start: 05-17-2024 End: 05-17-2024 Patient encounter procedure Susan Squires MD Work Phone: General Surgery Comment on above: Hiatal hernia (Primary Dx); Gastroesophageal reflux disease, unspecified whether esophagitis present Start: 05-04-2024 End: 05-04-2024 ambulatory [facility] Facility:[facility] Start: 05-03-2024 End: 05-03-[address] [facility] Facility[facility] Start: 05-03-2024 End: 05-03-2024 Patient encounter procedure Humza Camejo MD Work Phone: Ophthalmology Comment on above: Primary open angle glaucoma (POAG) of elisa th eyes, severe stage Start: 04-22-2024 End: 04-22-2024 ambulatory [facility] Facility:[facility] Start: 04-19-2024 End: 04-19-2024 ambulatory [facility] Facility:[facility] Start: 04-17-2024 End: 04-17-2024 Emergency department patient visit Vincent Morris Facility:[facility] Start: 04-16-2024 End: 04-16-2024 ambulatory [facility] Facility:[facility] Start: 04-09-2024 End: 04-09-2024 ambulatory Sandra Vincent NP Facility:[facility] Start: 04-05-2024 End: 04-05-2024 ambulatory [facility] Facility:[facility] Start: 04-01-2024 End: 04-01-2024 ambulatory [facility] Facility:[facility] Start: 03-25-2024 End: 03-25-[address] [facility] Facility[facility] Start: 03-25-2024 End: 03-25-2024 Office outpatient [...] Refill Request Start: 03-18-2024 End: 03-18-2024 ambulatory [facility] Facility:[facility] Start: 03-16-2024 End: 03-16-2024 ambulatory [facility] Facility:[facility] Start: 03-16-2024 End: 03-16-2024 ambulatory Chema Perry Facility:[facility] Start: 03-12-2024 Refill Laisha Lizarraga WAVE SOLDER OFFBEARER.MANAGEMENT TECHNICIAN Work Phone: Neurology Comment on above: Refill Request Start: 03-01-2024 End: 03-01-2024 ambulatory Malachi Caal Facility:[facility] Start: 02-23-2024 End: 02-23-2024 ambulatory Chema Perry Facility:[facility] Start: 02-11-2024 End: 02-12-2024 ambulatory Chema Perry Facility:[facility] Start: 12-26-2023 Refill Laisha Lizarraga WAVE SOLDER OFFBEARER.MANAGEMENT TECHNICIAN Work Phone: Neurology Comment on above: Refill Request Start: 12-26-2023 Refill Humza Camejo MD Work Phone: Ophthalmology Comment on above: Refill Request Start: 12-05-2023 Non-patient / Non-visit Dr. Chema Perry Work Phone: [facility] Work Phone: Start: 12-04-2023 Non-patient / Non-visit Dr. Chema Perry Work Phone: [facility] Start: 12-04-2023 End: 12-04-[address] Chema Perry Work Phone: [facility] Work Phone: Start: 12-04-2023 End: 12-04-[address] Chema Perry Work Phone: [facility]-Cardiovascula r Services Work Phone: Start: 11-12-2023 End: 11-12-[address] 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 Chema Perry Work Phone: [facility] Work Phone: Start: 10-14-2023 End: 10-14-[address] Chema Perry Work Phone: [facility]-Laboratory Work Phone: Start: 10-08-2023 End: 10-08-[address] Chema Perry Work Phone: [facility]-Pulmonary Medicine [facility] Work Phone: Start: 09-24-2023 End: 09-24-[address] Chema Perry Work Phone: [facility] Work Phone: Start: 08-14-2023 End: 08-14-[address] Chema Perry Work Phone: [facility] Work Phone: Start: 08-14-2023 End: 08-14-[address] Chema Perry Work Phone: [facility]-Physical Therapy Work Phone: Start: 08-14-[address] Chema Perry Work Phone: [facility]-Physical Therapy Work Phone: Start: 08-13-2023 End: 08-13-[address] Chema Perry Work Phone: [facility] [place] Work Phone: Start: 07-15-2023 End: 07-15-[address] Chema Perry Work Phone: [facility] Work Phone: Start: 07-15-2023 End: 07-15-[address] 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 Chema Perry Work Phone: [facility] Work Phone: Start: 06-04-2023 End: 06-04-[address] Chema Perry Work Phone: [facility] Work Phone: Start: 05-29-2023 Non-patient / Non-visit Dr. Chema Perry Work Phone: [facility] Start: 05-29-2023 End: 05-29-[address] Chema Perry Work Phone: [facility] Work Phone: Start: 05-29-2023 End: 05-29-[address] Cehma Perry Work Phone: [facility]-Cardiovascula r Services Work Phone: Start: 05-23-2023 Refill Laisha Lizarraga APRN.MANAGEMENT TECHNICIAN Work Phone: Neurology Start: 05-22-2023 End: 05-22-[address] Chema Perry Work Phone: [facility] Med at [facility] Work Phone: Start: 05-12-2023 End: 05-12-[address] Chema Perry Work Phone: [facility] Work Phone: Start: 05-06-2023 End: 05-06-[address] Chema Perry Work Phone: [facility] Work Phone: Start: 05-06-2023 End: 05-06-[address] Chema Perry Work Phone: [facility]-Speech Therapy Work Phone: Start: 04-22-2023 End: 04-22-[address] Chema Perry Work Phone: [facility]-Laboratory Work Phone: Start: 04-08-2023 ambulatory Laisha Lizarraga APRN.MANAGEMENT TECHNICIAN Work Phone: Neurology Comment on above: Tolerating Donepezil Start: 04-07-2023 End: 04-07-[address] Chema Perry Work Phone: [facility]-Pulmonary [facility] Work Phone: Start: 04-02-2023 End: 04-02-2023 Emergency department patient visit Dr. Chema Perry Work Phone: [facility]-Emergency Department Work Phone: Start: 04-01-[address] [facility] Start: 03-24-2023 End: 03-24-[address] [facility] Work Phone: Start: 02-12-2023 End: 02-12-[address] Chema Perry Work Phone: [facility] [place] Work Phone: Start: 02-12-[address] Chema Perry [facility] Start: 02-06-2023 End: 02-06-[address] Chema Perry Work Phone: [facility] Work Phone: Start: 02-06-2023 End: 02-06-[address] Chema Perry Work Phone: [facility]-Sleep Lab Start: 02-04-[address] Chema Perry Work Phone: [facility]-Speech Therapy Start: 01-29-2023 End: 01-29-[address] Chema Perry Work Phone: [facility] Med [facility] [place] Start: 01-29-2023 End: 01-29-[address] Chema Perry Work Phone: [facility] Work Phone: Start: 01-29-2023 End: 01-29-[address] Chema Perry Work Phone: [facility]-Occupational Therapy Start: 01-20-2023 End: 01-20-[address] Chema Perry Work Phone: [facility] Start: 01-17-2023 End: 01-17-[address] Chema Perry Work Phone: [facility] Radiology Start: 01-17-[address] Chema Perry Work Phone: [facility]-Occupational Therapy Start: 01-15-2023 End: 01-15-[address] Chema Perry Work Phone: [facility] Work Phone: Start: 01-15-2023 End: 01-15-[address] Chema Perry Work Phone: [facility] Start: 01-10-2023 End: 01-10-[address] Chema Perry Work Phone: [facility] Work Phone: Start: 01-10-2023 End: 01-10-[address] Chema Perry Work Phone: [facility]-Outpatient Breast Imaging Start: 01-08-2023 End: 01-08-[address] Chema Perry Work Phone: [facility] Start: 01-02-2023 End: 01-02-[address] Chema Perry Work Phone: [facility] Med [facility] [place] Start: 01-01-2023 End: 01-01-[address] Chema Perry [facility] Start: 12-25-2022 Non-patient / Non-visit Dr. Chema Perry Work Phone: [facility] Start: 12-25-2022 End: 12-25-[address] Chema Perry Work Phone: [facility]-Cardiovascula r Services Start: 12-25-2022 End: 12-25-2022 Patient encounter procedure Dr. Chema Perry Work Phone: [facility] Start: 12-11-[address] Chema Perry Work Phone: [facility]Physical Therapy Start: 12-04-2022 End: 12-04-2022 Subsequent hospital visit by physician [employer] [employer] Bl (Lg Bore/3t) Radiology Comment on above: Dementia without behavioral disturbance (HCC) [F03.90] Start: 12-03-2022 End: 12-03-[address] Chema Perry Work Phone: [facility] Work Phone: Start: 12-03-2022 End: 12-03-[address] Chema Perry Work Phone: [facility]Laboratory Start: 11-23-2022 End: 11-23-[address] Chema Perry Work Phone: [facility] Start: 11-13-2022 End: 11-13-2022 Patient encounter procedure Laisha Lizarraga APRN.CNP Work Phone: Neurology Comment on above: Dementia without behavioral disturbance (HCC) (Primary Dx); History of complex partial epilepsy; Gait instability; Multiple falls; Physical deconditioning; Depression, unspecified depression type; Anxiety; Dizziness; Imbalance Start: 10-23-2022 End: 10-23-[address] Chema Perry Work Phone: [facility] Start: 10-21-2022 End: 10-21-[address] Chema Perry Work Phone: [facility] Start: 10-16-2022 End: 10-16-2022 Emergency department patient visit Dr. Chema Perry Work Phone: [facility]Emergency Department Start: 10-14-[address] Chema Perry Work Phone: [facility]Speech Therapy Start: 09-21-2022 End: 09-21-[address] Chema Perry Work Phone: [facility] Work Phone: Start: 09-21-2022 End: 09-21-[address] Chema Perry Work Phone: [facility] Start: 09-16-[address] Chema Perry Work Phone: [facility] Start: 09-06-2022 End: 09-06-[address] Chema Perry Work Phone: [facility] Work Phone: Start: 09-06-2022 End: 09-06-[address] Chema Perry Work Phone: [facility] Start: 07-30-2022 End: 07-30-[address] Chema Perry Work Phone: [facility] Work Phone: Start: 07-30-2022 End: 07-30-[address] Chema Perry Work Phone: [facility] Start: 07-24-2022 End: 07-24-[address] Chema Perry Work Phone: [facility] Start: 07-22-2022 End: 07-22-[address] Arun Ramos Work Phone: [facility] Start: 07-22-[address] Arun Ramos Work Phone: [facility] Start: 07-18-2022 End: 07-18-[address] Arun Ramos Work Phone: [facility] Rad[facility] Start: 07-13-2022 End: 07-13-2022 Emergency department patient visit Dr. Arun Ramos Work Phone: [facility]Emer[facility] Start: 07-12-2022 End: 07-12-[address] Arun Ramos Work Phone: [facility] Work Phone: Start: 07-12-2022 End: 07-12-[address] Arun Ramos Work Phone: [facility] Start: 07-08-2022 Non-patient / Non-visit Dr. Arun Ramos Work Phone: [facility] Internal Medicine Start: 07-07-2022 End: 07-07-[address] Arun Ramos Work Phone: [facility] Start: 07-05-[address] Arun Ramos Work Phone: [facility] Start: 07-04-2022 End: 07-04-[address] Arun Ramos Work Phone: [facility] Start: 06-25-2022 End: 06-25-[address] Arun Ramos Work Phone: [facility] Start: 06-07-2022 End: 06-07-[address] Arun Ramos Work Phone: [facility] Start: 05-13-2022 End: 05-13-[address] Arun Ramos Work Phone: [facility] Start: 04-25-2022 End: 04-25-[address] Arun Ramos Work Phone: [facility] [place] Start: 04-11-2022 End: 04-11-2022 Patient encounter procedure Laisha Lizarraga APRN.CNP Work Phone: Neurology Comment on above: Dementia without behavioral disturbance, unspecified dementia type (HCC) (Primary Dx); History of complex partial epilepsy; Gait instability; Multiple falls; Physical deconditioning; Cognitive communication deficit Start: 03-27-2022 End: 03-27-[address] Arun Ramos [facility] Start: 03-21-2022 End: 03-21-[address] Arun Ramos Work Phone: [facility] [place] Start: 03-20-2022 Non-patient / Non-visit Dr. Arun Ramos Work Phone: [facility] Start: 03-15-2022 End: 03-15-2022 Emergency department patient visit Dr. Arun Ramos Work Phone: [facility]Emergency Department Start: 03-15-[address] Arun Ramos [facility] Start: 03-08-[address] Arun Ramos [facility] Start: 03-07-2022 End: 03-07-[address] Arun Ramos [facility] Start: 02-28-[address] Arun Ramos [facility] Start: 02-25-2022 End: 02-25-[address] Arun Ramos [facility] Start: 02-15-2022 End: 02-15-2022 Emergency department patient visit Dr. Arun Ramos Work Phone: [facility] Start: 02-14-2022 End: 02-14-[address] Arun Ramos Work Phone: [facility], Phy Office 3rd Flr Start: 02-13-[address] Arun Ramos [facility] Start: 02-07-2022 End: 02-07-[address] Arun Ramos Work Phone: [facility]-Pulmonary Services/Neurology Start: 02-07-2022 Non-patient / Non-visit Dr. Arun Ramos Work Phone: [facility] Start: 02-06-[address] Arun Ramos [facility] Start: 01-23-2022 End: 01-23-2022 Patient encounter procedure Mitchel Muse MD Work Phone: Neurology Comment on above: Dementia without behavioral disturbance, unspecified dementia type (HCC) (Primary Dx); History of complex partial epilepsy; Gait instability; Multiple falls; Depression, unspecified depression type; Anxiety; Physical deconditioning Start: 01-10-2022 End: 01-10-[address] Arun Ramos [facility] Start: 11-26-2021 End: 11-26-[address] Arun Ramos [facility] Start: 11-23-2021 End: 11-23-[address] Arun Ramos Work Phone: [facility] Start: 11-23-2021 End: 11-23-[address] Arun Ramos [facility] Phone[facility] Start: 11-13-2021 End: 11-13-2021 Patient encounter procedure Laisha Zia STEPHENS Work Phone: Neurology Comment on above: Dementia without behavioral disturbance, unspecified dementia type (HCC) (Primary Dx); History of complex partial epilepsy; Gait instability; Multiple falls; Depression, unspecified depression type; Anxiety; Physical deconditioning Start: 11-07-2021 End: 11-07-[address] Arun Ramos [facility] Phone[facility] Start: 10-08-2021 Non-patient / Non-visit Dr. Arun Ramos Work Phone: [facility] Start: 10-07-2021 Non-patient / Non-visit Dr. Arun Ramos Work Phone: [facility] Start: 10-06-2021 Non-patient / Non-visit Dr. Arun Ramos Work Phone: [facility] Start: 10-05-2021 Non-patient / Non-visit Dr. Arun Ramos Work Phone: [facility] Start: 10-05-2021 End: 10-08-2021 Evaluation and management of inpatient Dr. Arun Ramos Work Phone: [facility]Medical Surgical 3 Start: 09-04-2021 End: 10-04-2021 Evaluation and management of inpatient Dr. rAun Ramos Work Phone: [facility]Transitional Care Unit Start: 09-04-2021 Non-patient / Non-visit Dr. Arun Ramos Work Phone: [facility] Start: 09-03-2021 Non-patient / Non-visit Dr. Arun Ramos Work Phone: [facility] Start: 09-02-2021 Non-patient / Non-visit Dr. Arun Ramos Work Phone: [facility] Start: 09-02-2021 End: 09-04-2021 Evaluation and management of inpatient Dr. Arun Ramos Work Phone: [facility] 2 Start: 09-01-2021 End: 09-01-2021 Emergency department patient visit Dr. Arun Ramos Work Phone: [facility]Emergency Department Start: 08-13-[address] Arun Ramos Work Phone: [facility] - [facility] Start: 08-09-2021 End: 08-09-[address] rAun Ramos Work Phone: [facility] Start: 02-06-[address] Arun Ramos Work Phone: [facility] Procedures Date Procedure Procedure Detail Performing Clinician Start: 02-06-[address] Chema Perry MD Work Phone: Start: 02-06-2025 Plain X-ray of clavicle Dr. Chema Perry MD Work Phone: Start: 02-06-2025 Plain x-ray of humerus Dr. Chema Perry MD Work Phone: Start: 02-03-2025 CT of upper limb without contrast Dr. Sulema Perry MD Work Phone: Start: 02-03-2025 Plain X-ray of shoulder Dr. Chema Perry MD Work Phone: Start: 11-15-2024 Antibody screen ANILA DE PAZ Comment on above: Order Comment: Specimen Type: BLOOD SPEC IMENOrdering Facility: [facility] Address: [address] [place] [address] Performed By: #### T SCR ####CC MAIN BLOOD BANKCLIA [id number] [facility] [id number] [place] [address] [place] Start: 11-09-2024 X-ray of chest, PA and lateral views Dr. Susan mEery DO Work Phone: Start: 11-01-2024 Visual field xm uni/bi w/interp extended exam Humza Camejo MD Work Phone: Start: 10-18-[address] Chema Perry MD Work Phone: Start: 09-18-2024 CT of chest without contrast Dr. Chema Perry MD Work Phone: Start: 09-14-2024 Antibody screen ANILA DE PAZ Comment on above: Order Comment: Specimen Type: BLOOD SPEC IMENOrdering Facility: [facility] Address: [address] [place] [address] Performed By: #### T SCR30 ####CC MAIN BLOOD BANKCLIA [id number] [address] [place] Start: 09-13-2024 Esophagoscp rig transoral hypopharynx crv esoph Susan Srinivasan MD Work Phone: Start: 09-13-2024 Ercp dx collection specimen brushing/washing CLana Haile MD Work Phone: Start: 09-10-2024 Nerve [...] rendering w/interp&postproc diff work station Laisha Lizarraga APRN.MANAGEMENT TECHNICIAN Work Phone: Start: 12-04-2022 Mri brain brain [...] Arun Ramos Work Phone: Urine culture Dr. rAun Ramos Work Phone: Viral antigen assay Dr. [...] 12/20/2025 3:30 PM EDT Office Visit Cardiology [id number] [place], [place] [id number] Joan Guadalupe APRN.[facility] [address] [place] [address] 1yr follow up Cardiology Comment on above: 1yr follow up Start: 11-16-2025 End: 04-25-2026 OCT OPTIC NERVE CIRRUS OU (BOTH EYES) OCT OPTIC NERVE CIRRUS OU (BOTH EYES) [facility] Imaging Routine Primary open angle glaucoma (POAG) of both eyes, severe stage Expected: 11/16/2025, Expires: 04/25/[address] [facility] Work Phone: Comment on above: Expected: 11/16/2025, Expires: Start: 09-14-2025 Hepatitis B surface antibody level LDL Cholesterol [facility] Start: 08-17-2025 End: 01-24-2026 VISUAL FIELD 24-2 OU (BOTH EYES) VISUAL FIELD 24-2 OU (BOTH EYES) [facility] Imaging Routine Primary open angle glaucoma (POAG) of both eyes, severe stage Expected: 08/17/2025, Expires: 01/24/[address] [facility] Work Phone: Comment on above: Expected: 08/17/2025, Expires: Start: 05-10-2025 End: 05-10-2025 Patient encounter procedure 05/10/2025 11:00 AM EDT Office Visit Neurology [address] [place] [address] Denice Jacobs PA-C [address] [place] [address] 6 month follow up Neurology Comment on above: 6 month follow up Start: 03-24-2025 End: 03-24-2025 Patient encounter procedure 03/24/2025 2:30 PM EDT Office Visit Neurology [address] [address] Laisha Lizarraga APRN.MANAGEMENT TECHNICIAN [address] [place] [address] follow up- no moca Neurology Comment on above: follow up- no moca Start: 02-17-2025 End: 02-17-2025 Patient encounter procedure 02/17/2025 1:00 PM EDT Office Visit Neurology [address] [place] [address] Dimitry Maguire MD [address] [place] [address] 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] Neurology Comment on above: Ulnar neuropathy of right upper extremit y [G56.21] Start: 02-06-2025 Admission procedure [facility] Start: 02-06-2025 Hospital admission, emergency, from emergency room, medical nature [facility] Start: 02-03-2025 [facility] Start: 02-01-2025 End: 02-01-2025 Patient encounter procedure 02/01/2025 1:30 PM EDT Office Visit Cardiology [address] [place] [address] [place] [address] [place] [address] 6mo follow up Cardiology Comment on above: 6mo follow up Start: 01-27-2025 End: 01-27-2025 Patient encounter procedure 01/27/2025 2:30 PM EDT Office Visit Vasculary Surgery [address] [place] [address] Carotid bruit, unspecified laterality [R09.89] Vasculary Surgery Comment on above: Carotid bruit, unspecified laterality [R 09.89] Start: 01-05-2025 End: 01-05-2025 Patient encounter procedure 01/05/2025 3:30 PM EDT Office Visit [facility] Ophthalmology [address] [place] [address] Estelle Hodges MD [address] [address] Return in about 2 months (around 01/01/2025) for OCT OU. Ophthalmology Comment on above: Return in about 2 months (around 01/02/20) for OCT OU. 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, psychotic disturbance, mood disturbance, or anxiety Start: 12-20-2024 End: 12-20-2024 Patient encounter procedure 12/20/2024 2:00 PM EDT Office Visit Cardiology [address] [place] [address] [place] [address] [place] [address] discuss medication/edema Cardiology Comment on above: discuss medication/edema Start: 12-09-2024 End: 12-09-2024 Patient encounter procedure 12/09/2024 1:40 PM EDT Office Visit [facility] [place] [facility] [address] [address] Luh Dean PA-C [address] [place] [address] Degeneration of intervertebral disc of lumbar region, unspecified whether pain present [M51.369]; Left leg paresthesias [R20.2]; Right leg paresthesias [R20.2] [facility] Comment on above: Degeneration of intervertebral disc of l umbar region, unspecified whether pain present [M51.369]; Left leg paresthesias [R20.2]; Right leg paresthesias [R20.2] Start: 12-03-2024 End: 12-03-2024 Patient encounter procedure 12/03/2024 11:20 AM EDT Office Visit General Surgery [address] [place] [address] Anila De Paz MD [address] [place] [id number] Follow-up/ Luis GRIERe 2.3.25 General Surgery Comment on above: Follow-up/ Lius GRIERe 2.3.25 Start: 11-26-2024 End: 11-26-2024 Patient encounter procedure 11/26/2024 4:15 PM EDT OT/PT/Speech Visit [facility] [address] [place] [address] OTR/L [address] [place] [address] 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, R29.898] -- Recheck [facility] Comment on above: 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, R29.898] -- Recheck Start: 11-19-2024 End: 11-19-2024 Patient encounter procedure 11/19/2024 4:15 PM EDT OT/PT/Speech Visit [facility] [address] [place] [address], OTR/L [address] [place] [address] 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, R29.898] [facility] Comment on above: [...] Diarrhea, unspecified type Expected: 11/15/2024, Expires: 02/15/[address] [facility] Work Phone: Comment on above: Expected: 11/15/2024, Expires: Start: 11-15-2024 End: 02-14-2025 Lipase [Enzymatic activity/volume] in Serum or Plasma LIPASE Lab Routine Generalized abdominal pain Diarrhea, unspecified type Expected: 11/15/2024, Expires: 02/14/2025 [facility] Comment on above: Expected: 11/15/2024, Expires: Start: 11-12-2024 End: 11-12-2024 Patient encounter procedure 11/12/2024 3:30 PM EDT OT/PT/Speech Visit [facility] [address] [place] [address], OTR/L [address] [place] [address] 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, R29.898] [facility] Comment on above: 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, R29.898] Start: 11-11-2024 End: 11-11-2024 Patient encounter procedure Cat Scan Comment on above: Nausea [R11.0] Start: 11-10-2024 End: 04-19-2025 OCT OPTIC NERVE CIRRUS OU (BOTH EYES) OCT OPTIC NERVE CIRRUS OU (BOTH EYES) [facility] Imaging Routine Primary open angle glaucoma (POAG) of both eyes, severe stage Expected: 11/10/2024, Expires: 04/19/[address] [facility] Work Phone: Comment on above: Expected: 11/10/2024, Expires: Start: 11-05-2024 End: 11-05-2024 Patient encounter procedure 11/05/2024 2:00 PM EDT OT/PT/Speech Visit [facility] [address] [place] [address], OTR/L [address] [place], [place] [id number] 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, R29.898] [facility] Comment on above: [...] 2:45 PM EDT Office Visit [facility] Ophthalmology [address] [place] [address] Humza Camejo MD [address] [place] [address] Return in about 3 months (around 10/31/2024). [...] AM EST Office Visit General Surgery [address] [place] [address] Anila De Paz MD [address] [address] post op 2 wks/ lap paraesophageal hernia repair 09/20/2024 General Surgery Comment on above: post op 2 wks/ lap paraesophageal hernia repair 09/20/2024 Start: 10-07-2024 End: 10-07-2024 Patient encounter procedure 10/07/2024 1:45 PM EST Office Visit Neurology [address] [address] Laisha Lizarraga, WAVE SOLDER OFFBEARER.MANAGEMENT TECHNICIAN [address] [place] [address] follow up- no moca Neurology Comment on above: follow up- no moca Start: 09-20-2024 End: 09-20-2024 Admission to same day surgery center 09/20/2024 12:35 PM EST - 09/20/2024 5:55 PM EST Surgery Admitting [address] [place] [address] Anila De Paz MD [address] [place] [address] LAPAROSCOPIC RPR PARAESOHAGEAL HERNIA W/ FUNDOPLASTY +/- [...] 12:35 PM EST Hospital Encounter Admitting [address] [place] [address] Anila De Paz MD [address] [place] [address] Hiatal hernia [K44.9], Epigastric pain [R10.13], Nausea and vomiting, unspecified vomiting type [R11.2], Pre-op exam [Z01.818] Admitting Comment on above: Hiatal hernia [K44.9], Epigastric pain [ R10.13], Nausea and vomiting, unspecified vomiting type [R11.2], Pre-op exam [Z01.818] Start: 09-18-2024 [facility] Start: 09-15-2024 End: 09-15-2024 Anesthesia consultation 09/15/2024 8:00 AM EST PAT Pre Anesthesia [address] [place] [address] 2, Pacc Main [address] [place] [id number] preop/ lap hernia repair 09/20/2024 Pre Anesthesia Comment on above: preop/ lap hernia repair 09/20/2024 Start: 09-14-2024 End: 09-14-2024 ambulatory 09/14/2024 3:00 PM EST Results Only [facility] [address] [place] [address] Hiatal hernia [K44.9]. Epigastric pain [R10.13]. Nausea and vomiting, unspecified vomiting type [R11.2]. Pre-op exam [Z01.818] [facility] Comment on above: Hiatal hernia [K44.9]. Epigastric pain [ R10.13]. Nausea and vomiting, unspecified vomiting type [R11.2]. Pre-op exam [Z01.818] Start: 09-14-2024 End: 09-14-2024 Anesthesia consultation 09/14/2024 2:00 PM EST PAT Pre Anesthesia [address] [place] [address] 1, Pacc [place] [address] [facility] [place] [address] preop/ lap hernia repair 09/20/2024 Pre Anesthesia Comment on above: preop/ lap hernia repair 09/20/2024 Start: 09-14-2024 End: 12-14-2024 LIPID PANEL, NONFASTING [facility] Work Phone: Comment on above: Expected: 09/14/2024, Expires: Start: 09-13-2024 End: 09-13-2024 Patient encounter procedure Gastroenterology Comment on above: Dilated pancreatic duct [K86.89], severe dilation of CBD Start: 09-10-2024 End: 09-10-2024 ambulatory Neurology Comment on above: R PN r R PN Start: 09-07-2024 End: 09-07-2024 Patient encounter procedure 09/07/2024 9:30 AM EST Appointment Radiology [address] [place] [address] Procedure: MRI PANC/MAGNOLIA WO/W IVCON Radiology Comment [...] type Pre-op exam Expected: 09/03/2024, Expires: 09/03/[address] [facility] Work Phone: Comment on above: Expected: 09/03/2024, Expires: Start: 09-03-2024 End: 09-03-2025 CONFIRM BLOOD TYPE CONFIRM BLOOD TYPE Blood Bank Routine Hiatal hernia Epigastric pain Nausea and vomiting, unspecified vomiting type Pre-op exam Expected: 09/03/2024, Expires: 09/03/2025 [facility] Comment on above: Expected: 09/03/2024, Expires: Start: 09-03-2024 End: 09-03-2024 Patient encounter procedure 09/03/2024 2:00 PM EST Office Visit General Surgery [address] [place] [address] Anila De Paz MD [address] [place] [address] Follow-up/ Pre-op PEHR/ completed EGD, CT ABD, [...] EST Office Visit Vascular Surgery [address] [address] Carotid bruit, unspecified laterality [R09.89] Vascular Surgery Comment on above: Carotid bruit, unspecified laterality [R 09.89] Start: 08-18-2024 Advance Directive Discussion Advance Directive Discussion [facility] Start: 08-09-2024 End: 08-09-2024 ambulatory 08/09/2024 4:00 PM EST Results Only [facility] [address] [place] [address] [facility] Start: 08-06-2024 End: 11-05-2024 CBC [...] 08/06/2024 10:00 AM EST Office Visit Neurology [address] [place] [address] [place] [address] Denice Jacobs PA-C [address] [place], [place] [address] Paresthesia of both feet [R20.2] Neurology Comment on above: Paresthesia of both feet [R20.2] Start: 08-03-2024 End: 08-03-2024 Patient encounter procedure 08/03/2024 3:30 PM EST Office Visit Cardiology [address] [place] [address] [place] [address] [place] [address] H/O acute myocardial infarction [I25.2]; Cardiomyopathy, unspecified type (HCC) [I42.9]; Pre-op evaluation [Z01.818] Cardiology Comment on above: H/O acute myocardial infarction [I25.2]; Cardiomyopathy, unspecified type (HCC) [I42.9]; Pre-op evaluation [Z01.818] Start: 08-02-2024 End: 08-02-2024 Patient encounter procedure 08/02/2024 2:15 PM EST Office Visit [facility] [id number] [place] [address] Humza Camejo MD [address] [place] [address] Return in about 3 months (around 08/02/2024). Ophthalmology Comment on above: Return in about 3 months (around 024). Start: 07-21-2024 End: 07-21-2024 Patient encounter procedure Gastroenterology Comment on above: EGD MAC Start: 07-16-2024 End: 07-16-2024 Anesthesia consultation 07/16/2024 3:00 PM EST PAT Pre Anesthesia [address] [place] [address] 1, Pacc Rafita [address] [place] [address] pre op 07/21 Pre Anesthesia Comment on above: pre op 07/21 Start: 07-09-2024 End: 07-09-2024 Patient encounter procedure 07/09/2024 11:20 AM EST Office Visit Cardiology [address] [place] [address] H/O acute myocardial infarction [I25.2]; Cardiomyopathy, unspecified type (HCC) [I42.9]; Pre-op evaluation [Z01.818] Cardiology Comment on above: H/O acute myocardial infarction [I25.2]; Cardiomyopathy, unspecified type (HCC) [I42.9]; Pre-op evaluation [Z01.818] Start: 07-01-2024 End: 07-01-2024 Patient encounter procedure 07/01/2024 1:45 PM EST Office Visit Neurology [address] [address] Laisha Lizarraga, WAVE SOLDER OFFBEARER.MANAGEMENT TECHNICIAN [address] [place] [address] F/U Neurology Comment on above: F/U Start: 06-18-2024 End: 09-17-2024 CREATININE BLD CREATININE BLD Lab Routine Hiatal hernia Expected: 06/18/2024, Expires: 09/17/2024 [facility] Comment on above: Expected: 06/18/2024, Expires: Start: 06-18-2024 End: 06-18-2024 Patient encounter procedure General Surgery Comment on above: New consult pt of Dr [place] Large Hiata l hernia on recent CT Gerd, frail, needs EGD Hiatal Hernia referr al from Dr. Squires/ HX: TIA, seizures, Dementia, asthma, GA, HTN, HLD, DVT, CA, GERD, SX: VHR, appy, Frail / CT ABD: R inguinal hernia (stable, LARGE hiatal hernia, dilated bile duct / NEEDS: EGD Start: 06-04-2024 End: 06-04-2024 Patient encounter procedure 06/04/2024 9:50 AM EDT Office Visit General Surgery [address] [place], [place] [id number] Laisha Sheppard MD [address] [place] [address] Hiatal hernia [K44.9] General Surgery Comment on above: Hiatal hernia [K44.9] Start: 05-17-2024 End: 05-17-2024 Patient encounter procedure 05/17/2024 3:00 PM EDT Office Visit General [facility] [address] [facility] [place] [place] [id number] Susan Squires MD [address] [facility] [place] [address] hernia General Surgery Comment on above: hernia Start: 05-03-2024 End: 05-03-2024 Patient encounter procedure 05/03/2024 2:00 PM EDT Office Visit [facility] [id number] [place] [address] [id number] Humza Camejo MD [address] [place], [place] [id number] Return in about 6 months (around 04/28/2024). Ophthalmology Comment on above: Return in about 6 months (around 04/28/20). Start: 04-18-2024 Covid-19 Vaccine () Covid-19 Vaccine () [facility] Start: 04-18-2024 Covid-19 Vaccine () Covid-19 Vaccine () [facility] Start: 04-18-2024 Influenza vaccination [facility] Start: 03-25-2024 End: 03-25-2024 Patient encounter procedure 03/25/2024 1:45 PM EDT Office Visit Neurology [address] [address] Laisha Lizarraga APRN.[facility] [address] [place] [id number] [facility] Follow Up Neurology Comment on above: [facility] Follow Up Start: 08-18-2023 Advance Directive Discussion Advance Directive Discussion [facility] Start: 05-08-2023 Diabetes Screening Diabetes Screening [facility] Start: 04-18-2023 Covid-19 Vaccine ( season) Covid-19 Vaccine () [facility] Start: 04-18-2023 Covid-19 Vaccine () Covid-19 Vaccine () [facility] Start: 04-18-2023 Influenza vaccination [facility] Start: 01-17-2023 Radiography of thoracic spine Thoracic Spine 3 Views [facility] Start: 01-17-2023 XR Thoracic spine 3 Views [facility] Start: 01-17-2023 X-ray of lumbar spine, two or three views Lumbar Spine 2 or 3 Views [facility] Start: 01-17-2023 XR Lumbar spine 2 or 3 Views [facility] Start: 01-02-2023 Patient referral [facility] Work Phone: Start: 08-18-2022 ADVANCE DIRECTIVE DISCUSSION ADVANCE DIRECTIVE DISCUSSION [facility] Start: 04-18-2022 Influenza vaccination INFLUENZA (#1) [facility] Start: 02-25-2022 Methylmalonate measurement [facility] Work Phone: Start: 02-15-2022 [facility] Work Phone: Start: 09-22-2021 COVID-19 VACCINE (4 [...] 2007 Bone Density Screening Bone Density Screening [facility] Start: 2007 Pneumococcal Vaccine: 65+ (1 - [...] identified in Urine by Culture Urine Culture [facility] Work Phone: End: 07-18-2025 CT Abdomen and Pelvis W contrast IV CT ABD/PEL W IVCON Radiology Routine Hiatal hernia 1 Occurrences starting 06/18/2024 until 07/18/2025 [facility] Comment on above: 1 Occurrences starting 06/18/2024 until 07/18/2025 End: 12-02-2025 CT Abdomen and Pelvis W contrast IV CT ABD/PEL W IVCON Radiology Routine Nausea 1 Occurrences starting 11/02/2024 until 12/02/[address] [facility] Work Phone: Comment on above: 1 Occurrences starting 11/02/2024 until 12/02/2025 CT Abdomen and Pelvi s W contrast IV CT ABD/PEL W IVCON Radiology Routine Nausea 11/11/2024 1:55 PM EDT [facility] Work Phone: End: 07-18-2025 CT Chest W contrast IV CT CHEST W IVCON Radiology Routine Hiatal hernia 1 Occurrences starting 06/18/2024 until 07/18/2025 [facility] Comment on above: 1 Occurrences starting 06/18/2024 until 07/18/2025 CT Chest W contrast IV CT CHEST W IVCON Radiology Routine Hiatal hernia 06/24/2024 3:12 PM EST [facility] Work Phone: ECG COMPLETE ECG COMPLETE ECG 08/03/2024 3:41 PM EST [facility] End: 06-18-2025 Echocardiography ECHO Cardiology Routine H/O acute myocardial infarction Cardiomyopathy, unspecified type (HCC) Pre-op evaluation 1 Occurrences starting 06/18/2024 until 06/18/[address] [facility] Work Phone: Comment on above: 1 Occurrences starting 06/18/2024 until 06/18/2025 End: 09-08-2025 EGD - THERAPEUTIC, EUS, OR TUBE INTERVENTIONS EGD - THERAPEUTIC, EUS, OR TUBE INTERVENTIONS Endoscopy Routine Dilated pancreatic duct 1 Occurrences starting 09/08/2024 until 09/08/[address] [facility] Work Phone: Comment on above: 1 Occurrences starting 09/08/2024 until 09/08/2025 End: 06-18-2025 EGD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 to meet with Dr. Maday camacho. Will update MD regarding completion of ordered testing. Provided pt and this RN contact info documented in this encounterPromedica Defiance [facility] Hospital12-20-2024 Instructions* Patient Instructions* Denice Jacobs PA-C - 08/06/2024 10:30 AM EST Laboratory studies EMG of the arm and leg Follow up in [facility] (Tuesdays and Wednesdays) after work up documented in this encounterPromedica Defiance Regional Hospital12-20-2024 NoteFair[facility] Center12-20-2024 History of Present illness Narrative* Denice Jacobs PA-C - 08/06/2024 9:47 AM EST Images from the original note were not included. [facility] Name: Lauren Alcaraz Age: [...] Hx of dementia and following with brain health, referred for paresthesias. Last visit on 07/01/24 [...] her handwriting. Has no burning pain or tvyy-hab-oavuryl feeling, just reports a lack of sensation [...] primary care who is outside of the [facility]. 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 donepezil (ARICEPT) 10 mg tablet Take 1 tablet by mouth daily with breakfast. gabapentin (NEURONTIN) 100 mg capsule as needed. traMADol (ULTRAM) 50 mg tablet Take 25 mg by mouth two times a day. famotidine (PEPCID) 10 mg tablet Take 10 mg by mouth twice daily. DODEX 1,000 mcg/mL Inject 1,000 mcg intramuscularly once every month. Vitamin P-77-ganeisxmnskkyo ammonium lactate (LAC-HYDRIN) 12 % lotion BD [...] Skin Biopsy: This note was dictated using [employer] speech recognition software and may contain some [...] which included preparing to see the patient, uiws-bd-csgo patient care, completing clinical documentation, obtaining and/or reviewing separately obtained history, performing a medically appropriate examination, counseling and educating the pat ient/family/caregiver, and ordering medications, tests, or procedures. documented in this encounterPromedica Defiance Regional Hospital12-17-2024 NoteNORMAL SINUS RHYTHM LEFT AXIS DEVIATION POOR R WAVE PROGRESSION INFERIOR MYOCARDIAL INFARCTION , AGE UNDETERMINED ABNORMAL ECG Confirmed by MD MARCIAL QARAB ([id number]), story editor TONYA IVEY ([id number]) on 08/03/2024 4:15:08 PMHEART AND VASCULAR [id number] Instructions* Patient Instructions* Sourav Marcial MD - [...] Interventional procedures are not considered surgery. A barber instructor (not a surgeon) performs theseprocedures to reduce [...] documented in this encounterPromedica Defiance Regional Hospital12-17-2024 NoteFair[facility]12-17-2024 History of Present illness Narrative* Sourav Marcial MD - 08/03/2024 3:29 PM EST Images from the original note were not included. Heart and Vascular [place] Justus Saravia Department of Cardiovascular Medicine SECTION OF REGIONAL CARDIOLOGY [facility] August 03, 2024 OUTPATIENT VISIT TYPE [...] Date Arthritis Asthma Atherosclerotic heart disease of teller coronary artery without angina pectoris Autoimmune disorder [...] FLUTICASONE,) 50 mcg/actuation nasal spray Use 1 Dona Ana in each nostrilonce daily. donepezil (ARICEPT) 10 mg tablet Take 1 tablet by mouth daily with breakfast. gabapentin (NEURONTIN) 100 mg capsule as needed. traMADol (ULTRAM) 50 mg tablet Take 25 mg by mouth two times a day. famotidine (PEPCID) 10 mg tablet Take 10 mg by mouth twice daily. DODEX 1,000 mcg/mL Inject 1,000 mcg intramuscularly once every month. Vitamin F-85-pgcjjuqakphnty ammonium lactate (LAC-HYDRIN) 12 % lotion MULTIVITAMIN [...] than 50% stenosis with mild plaque disease [facility] nuclear SPECT scan done on May 2023 also shows normal LV function with no evidence of ischemia ejection fraction of 89%. However, it was done with 69% of maximal Peritrate heart rate obtained. Echocardiogram done in [facility] on 09 July 2024 shows normal LV function withejection fraction of 59%, 2+ tricuspid regurgitation with right ventricular systolic pressure of 59mmHg. 08/03/2024 EKG showed normal sinus rhythm with old inferior wall GA and poor R wave progression with no [...] low fat diet. Sourav Marcial MD, FACC. Sole Stainer, Dept of Cardiology and Medicine, [facility]. Audio/Visual Operator of Ambulatory Cardiology, [facility]. Audio/Visual Operator of Cardiac Catheterization laboratory, [facility]. Clinical Asst. isobutylene operator chief, [facility] and [facility] Staff Terrapin Fisher, Heart, Vascular and Thoracic [place], [facility]. 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 Scanned into [employer] through Onbase scanning. Dottie Horowitz LPN [facility]12-02-2024 Miscellaneous Notes* Telephone Encounter - Dottie Horowitz LPN - 07/19/2024 3:53 PM EST Printed from [employer]. Scanned into [employer] through Onbase scanning. Dottie Horowitz LPN * [...] Hospital11-29-2024 History and physical note* Willa Torres APRN.ALBERT - 07/16/2024 2:48 PM EST Images from the original note were not included. [place] [facility] HISTORY [...] large neck Non-male patient STOP-Bang Score: 2 [id number] Score: Age: >=75 Sex: female CHF history: No Hypertension history: No Stroke/TIA/thromboembolism history: Yes Vascular disease history: Yes Diabetes history: No DCE6TT1-ZHTp Score: 6 ARISCAT Score: Age: >80 Preoperative [...] pain, CHF, congenital heart defect, hypertension, recent GA, PVD, open heart surgery and valve surgery. GI: See HPI. Positive for: dysphagia, esophageal stricture (hx dilation), GERD (hx, otc rx as needed) and vomiting (intermittently) Negative for: abdominal pain, hepatitis, irritable bowel syndrome, inflammatory bowel disease, liver disease, nausea, pancreatitis and ETOH >2 drinks/day. : Positive for: urinary incontinence (+OAB, on rx). CLOTH WORKER: Negative for abnormal vaginal bleeding, abnormal vaginal [...] Date Arthritis Asthma Atherosclerotic heart disease of teller coronary artery without angina pectoris Autoimmune disorder [...] FLUTICASONE,) 50 mcg/actuation nasal spray Use 1 Dona Ana in each nostrilonce daily. Taking Yes donepezil [...] 1,000 mcg intramuscularly once every month. Vitamin N-49-wjowzudqffefop Taking Yes ammonium lactate (LAC-HYDRIN) 12 % [...] 8760 hour(s)). Recent Results (from the past 60499 hour(s)) ECHO Collection Time: 07/09/24 11:20 AM [...] following [facility], last OV 11/12/2023 scanned into [employer]. Stress test 05/2023 negative for ischemia. Pt [...] large neck Non-male patient STOP-Bang Score: 2 [id number] Score: Age: >=75 Sex: female CHF history: No Hypertension history: No Stroke/TIA/thromboembolism history: Yes Vascular disease history: Yes Diabetes history: No [id number]-OPRl Score: 6 ARISCAT Score: Age: >80 Preoperative [...] COVID-19 original vaccine, age 12+ yr, monovalent ([employer] - PURPLE TOP) 10/28/2020 Imm Admin: COVID-19 [...] pain, CHF, congenital heart defect, hypertension, recent GA, PVD, open heart surgery and valve surgery. GI: See HPI. Positive for: dysphagia, esophageal stricture (hx dilation), GERD (hx, otc rx as needed) and vomiting (intermittently) Negative for: abdominal pain, hepatitis, irritable bowel syndrome, inflammatory bowel disease, liver disease, nausea, pancreatitis and ETOH >2 drinks/day. : Positive for: urinary incontinence (+OAB, on rx). CLOTH WORKER: Negative for abnormal vaginal bleeding, abnormal vaginal [...] Date Arthritis Asthma Atherosclerotic heart disease of teller coronary artery without angina pectoris Autoimmune disorder [...] FLUTICASONE,) 50 mcg/actuation nasal spray Use 1 Dona Ana in each nostrilonce daily. Taking Yes donepezil [...] 1,000 mcg intramuscularly once every month. Vitamin K-96-mmslgsmacilnii Taking Yes ammonium lactate (LAC-HYDRIN) 12 % [...] 8760 hour(s)). Recent Results (from the past 91313 hour(s)) ECHO Collection Time: 07/09/24 11:20 AM [...] [facility] Instructions* Patient Instructions* Willa Torres APRN.ALBERT - 07/16/2024 2:42 PM EST Images from the original note were not included. [facility] PATIENT PREOPERATIVE INSTRUCTIONS No ref. provider found has scheduled you for your procedure at this surgery center: [facility] [place] Scheduling Office: [phone] --[address] [place] [address]. Please read below carefully for your personalized [...] office. If you are currently using a shht-boq-xfqe injectable or oral medication for diabetes or [...] or other anticoagulants without consulting with your barber instructor or prescribing physician. - Stop ALL herbal [...] Procedures: - YOU MUST HAVE A RESPONSIBLE CIGAR MAKER TAKE YOU HOME. A CHIP SILO TENDER OR CRANE MAN CANNOT BE MADE A RESPONSIBLE CIGAR MAKER. - We recommend that a responsible [...] call the Friday before. Your surgeon s cigarette machine filler will tell you what time to call the office. - If you have not reached the departmental cigarette machine filler by 5 P.M., call [phone] after 5 P.M. the day before your surgery. Please be aware that emergency situations arise, which may delay or change your surgical time. If this happens, we will notify you as soon as possible and regret any inconvenience. If you already have an Advance Directive, please fax a copy to [phone] or email to for it to be [...] have family/friend present for procedure transport home:Patient/patient solar manufacturer's representative was told that if they do [...] area. Any barriers to Patient learning: Patient/Patient Agricultural Labor Camp Manager responded appropriately on phone. Type of instruction [...] have family/friend present for procedure transport home:Patient/patient solar manufacturer's representative was told that if they do [...] area. Any barriers to Patient learning: Patient/Patient Agricultural Labor Camp Manager responded appropriately on phone. Type of instruction given: Verbal by telephone contact. Jaqueline Del Cid, RN documented in this encounterPromedica Defiance [facility] Hospital11-21-2024 Telephone encounter Note * Telephone Encounter - Terri Orosco RN - 07/08/2024 11:05 AM EST Patients called back to office today. Spoke with spouse and all questions answered. Discussed need for holding blood thinner for EGD which spouse will reach out to local barber instructor for instructions. [facility]11-21-2024 Miscellaneous Notes* Telephone Encounter - Terri Orosco RN - 07/08/2024 11:05 AM EST Patients called back to office today. Spoke with spouse and all questions answered. Discussed need for holding blood thinner for EGD which spouse will reach out to local barber instructor for instructions. * Telephone Encounter - Mary Anne Wing - 07/07/2024 9:56 AM EST Patient called in and would like someone to go over instructions with her regarding her upcoming EGD. Please call [phone] this is her phone number the number in [employer] is her husbands cell. Mary Anne Nielsen documented in this encounterPromedica [facility]11-20-2024 Telephone encounter Note * Telephone Encounter - Mary Anne Wing - 07/07/2024 9:56 AM EST Patient called in and would like someone to go over instructions with her regarding her upcoming EGD. Please call [phone] this is her phone number the number in [employer] is her husbands cell. Mary Anne Nielsen [facility]11-20-2024 Telephone encounter Note* [...] 2024 1:18pm 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 July [...] of spine chronic October 22, 2024 2:11pm [facility] Work Phone: 1(394) 488-933311-14-2024 Instructions* Patient Instructions* Laisha Lizarraga APRN.CNP - 07/01/2024 2:32 PM EST Continue the current medications as you have been 2. Contnue to be active, busy and cognitively/socially engaged 3. Be cautious with fall prevention 4. Continue to follow w/ Dr. De Paz 5. Consider seeing the Neuromuscular dept to have the numbness/tingling in feet evaluated better -[phone] Follow up in ~3-6 months documented in this encounterPromedica Defiance [facility]11-14-2024 History of Present illness Narrative* Laisha Lizarraga APRN.CNP - 07/01/2024 1:45 PM EST Lauren Alcaraz 1940 [address] [facility] [address] [facility] [address] July 01, 2024 [facility] [...] struggling with chronic back pain/scoloisis/kyphosis- following w/ [facility] -- reporting increased fine motor difficulty, poor [...] FLUTICASONE,) 50 mcg/actuation nasal spray Use 1 Dona Ana in each nostrilonce daily. donepezil (ARICEPT) 10 [...] 1,000 mcg intramuscularly once every month. Vitamin Z-43-ngxhemffxzmgrd ammonium lactate (LAC-HYDRIN) 12 % lotion BD [...] from 2007 DATE: June 15, 2008 NO: [id number] Indication: Question of seizure Medications: None given [...] to have the numbness/tingling in feet evaluated [phone] Follow up in ~3-6 months I spent a total of 40 minutes on the date of service which included ihyt-su-evst patient care and counseling and educating the patient/spouse. Laisha Lizarraga, MSN, CRIMINAL INTELLIGENCE ANALYST-C, CNRN CC: 1. No primary care provider on file., (fax) None documented in this encounterPromedica Defiance [facility]11-14-2024 NoteFair[facility] Center11-14-2024 Nurse Note* Arun Buenrostro MA - 07/01/2024 [...] PATIENT PRESENTS WITH AN IMPLANTABLE OR ATTACHED CHUTE BOSS: No ALLERGIES: Reviewed and unchanged CONTRAST ALLERGY: [...] documented in this encounterPromedica Defiance [facility]11-07-2024 [facility]Fair[facility]11-01-2024 NoteFair[facility] Center11-01-2024 History of Present illness Narrative* Taylor Forrest [...] - Stop all ASA and NSAID products, Dennis 3 fish oil, herbal products such as ginko etc.for 7 days prior to procedure - Medication List reviewed. Patient agreed to hold Eliquis 3 days before procedure - Patient aware - must have a responsible lyft driver on the day of procedure. Patient [...] Date Arthritis Asthma Atherosclerotic heart disease of teller coronary artery without angina pectoris Autoimmune disorder [...] No history of dysuria, frequency or incontinence CLOTH WORKER: Negative for abnormal vaginal bleeding, abnormal vaginal [...] Echo and cardiology evaluation at the [facility] CT Chest/Abd/Pel with IV con [...] Date Arthritis Asthma Atherosclerotic heart disease of teller coronary artery without angina pectoris Autoimmune disorder [...] No history of dysuria, frequency or incontinence CLOTH WORKER: Negative for abnormal vaginal bleeding, abnormal vaginal [...] EGD Echo and cardiology evaluation at the [facility] Chest/Abd/Pel with IV con Creat Consult [...] ABD per was in JUN [address] [facility]. She may have had an EGD years ago States that his 's situation is declining and her quality of life is affected. Called [facility] - only CT results they have [...] ABD per was in JUN [address] [facility]. She may have had an EGD years ago States that his 's situation is declining and her quality of life is affected. Called 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 Patient was recently in [place] emergency department underwent an abdomen and pelvis [...] Date Arthritis Asthma Atherosclerotic heart disease of teller coronary artery without angina pectoris Autoimmune disorder [...] daily. azelastine 0.1% nasal spray Use 1 Dona Ana in each nostril two times a day. cetirizine (ZYRTEC) 10 mg tablet Take 10 mg by mouth once daily as needed. diazePAM (VALIUM) 2 mg tablet Take 2 mg by mouth at bedtime as needed for anxiety. fluticasone (ALLERGY RELIEF, FLUTICASONE,) 50 mcg/actuation nasal spray Use 1 Dona Ana in each nostrilonce daily. valACYclovir (VALTREX) 500 [...] 1,000 mcg intramuscularly once every month. Vitamin U-56-ygdfpnktdlwzqx ammonium lactate (LAC-HYDRIN) 12 % lotion BD [...] entered by the nurse and reviewed by az Nursing Notes: Marian José RN 05/17/2024 3:54 [...] going to get a referral up to [facility] for this large hiatal hernia. [...] encounterPromedica Defiance [facility]09-30-2024 Nurse Note* Marian José [...] [facility]24 NoteDate of Procedure 05/03/2024. [employer] Machine Operator Helper Information was not able due to head position . NFL Interpretation Right Eye Diffuse loss. Left Eye Diffuse loss. Interval Change Right Eye Stable. 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 - refer to grain combiner for prism # dementia - possible limbic-associated [...] [facility]08-08-2024 Instructions* Patient Instructions* Laisha Lizarraga APRN.CNP - 03/25/2024 2:26 PM EDT Will look [...] Present illness Narrative* Laisha Lizarraga APRN.CNP - 03/25/2024 1:45 PM EDT Lauren Alcaraz 1940 [address] [facility] [address] [facility] [address] March 25, 2024 [facility] FOLLOW-UP NOTE Accompanied by: [...] had MRIs of T/L spine performed on 8/2 at [facility] and they will [...] from 2007 DATE: June 15, 2008 NO: [id number] Indication: Question of seizure Medications: None given [...] on the date of service which included rsal-eo-zdrz patient care and counseling and educating the patient/spouse. Laisha Lizarraga, MSN, CRIMINAL INTELLIGENCE ANALYST-C, CNRN CC: 1. No primary care provider on file., (fax) None documented in this encounterPromedica [facility]iance [facility]08-08-2024 NoteFairfield Medical Center08-07-2024 Telephone encounter Note* Telephone Encounter - Bety Henry - 03/24/2024 1:36 PM EDT Request a 30 day emergency supply (script) of Latanoprost be sent to the [facility] . 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 I have seen and examined Lauren Hoyoscalezaki. I have discussed the case and the management of this patient's care with the Resident/Fellow, if applicable. I also have reviewed and agree with the assessment and plan as stated above and agree withall of its relevant components. Humza Camejo MD [facility] Work Phone: 1(535) 547-228908-07-2024 Miscellaneous Notes* Telephone Encounter - Bety Henry - 03/24/2024 1:36 PM EDT Request a 30 day emergency supply (script) of Latanoprost be sent to the [facility] . I will be out of this medication in 3 to 4 days and [facility] will not fill the existing script until 04 April and I will not receive it until about April 16. Please advise me that this message has been received and the script sent to [facility]. 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 Requested Prescriptions Signed Prescriptions Disp Refills donepezil (ARICEPT) 10 mg tablet 90 tablet 3 Sig: Take 1 tablet by mouth daily with breakfast. Authorizing Provider: LAISHA LIZARRAGA APRN.MANAGEMENT TECHNICIAN [facility]07-26-2024 Miscellaneous Notes* Telephone Encounter - Laisha Lizarraga APRN.CNP - 03/12/2024 12:08 PM EDT The following approved medication requests have been transmitted electronically. Requested Prescriptions Signed Prescriptions Disp Refills donepezil (ARICEPT) 10 mg tablet 90 tablet 3 Sig: Take 1 tablet by mouth daily with breakfast. 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 [address] [place] [address] / REHABILITATION SERVICES DISCHARGE SUMMARY MR#: [id number] Acct: [id number] Name: LAUREN ALCARAZ Rep #: [id number] : 1940 83 From: Aquiles Fang DP T Referring Dr.: Dr. Porfirio Bloom MD Status: REG RCR Insurance: MEDICARE PART A B [place] [id number] Patient Information Patient Information: LAUREN ALCARAZ was [...] was in need and Ireferred her to [facility]. I did talk with her [...] Dr. Chema Perry MD ~ CLS Signed [facility] Work Phone: 1(993) 790-119703-14-2024 Miscellaneous Notes* Telephone Encounter - Najma Sheppard - 10/30/2023 10:20 AM EDT Patient's request for medication is as follows: Requested Prescriptions Pending Prescriptions Disp Refills latanoprost (XALATAN) 0.005 % ophthalmic solution 7.5 mL 5 Sig: Use 1 Drop in both eyes daily at bedtime. Prescription(s) as above. Please process accordingly. 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 I have seen and examined Lauren Hoyoscalezaki. I have discussed the case and the [...] APRN.CNP - 10/16/2023 2:30 PM EST Lauren Hoyosjens 1940 [address] [facility] [address] [facility] [address] October 16, 2023 [facility] [place] [facility] FOLLOW-UP NOTE Accompanied by: spouse Delroy MADRID Lauren Alcaraz is a pleasant 83 year [...] from 2007 DATE: June 15, 2008 NO: [id number] Indication: Question of seizure Medications: None given [...] and working out regularly! Keep working with [employer]! 3. Maintain the highly motivated attitude! Follow up in 4-6 months I spent a total of 40 minutes on the date of service which included itdl-jh-pqly patient care and counseling and educating the patient/spouse. Laisha Lizarraga, MSN, CRIMINAL INTELLIGENCE ANALYST-C, CNRN CC: 1. No primary care provider on file., (fax) None documented in this encounterPromedica Defiance [facility]10-30-2023 Instructions* Patient Instructions* Laisha Lizarraga APRN.CNP [...] 1:45 PM EDT Lauren Alcaraz 1940 [address] [facility] [address] [facility] [address] June 16, 2023 [facility] [...] vision lately, which she has seen her Sales Associate Cashier about and who has ordered her a [...] from 2007 DATE: June 15, 2008 NO: [id number] Indication: Question of seizure Medications: None given [...] on the date of service which included nqvf-fm-xybd patient care and counseling and educating the patient/spouse. Laisha Lizarraga, MSN, CRIMINAL INTELLIGENCE ANALYST-C, CNRN CC: 1. No primary care provider on file., (fax) None documented in this encounterPromedica Defiance [facility]10-30-2023 Nurse Note* Lisbeth Rob - 06/16/2023 [...] Unknown) BMI 21.41 kg/m documented in this encounterPromedica Defiance [facility] Hospital10-06-2023 Miscellaneous Notes* Telephone Encounter - Romero Ojeda PA-C - 05/23/2023 4:04 PM EDT The following approved medication requests have been transmitted electronically. Requested Prescriptions Signed Prescriptions Disp Refills donepezil (ARICEPT) 5 mg tablet 90 tablet 1 Sig: Take 1 tablet by mouth daily with breakfast. 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 Cancer acute Essential hypertension acute Hyperlipidemia acute Hypothyroidism acute Mass of upper inner quadrant of left breast acute Presence of stent in coronary artery acute Right inguinal hernia acute Vitamin B 12 deficiency acut e Gastroesophageal reflux disease chronic ERIS (obstructive sleep apnea) chronic Restless leg syndrome chroni c Sternal deformity acute Bee sting acute [facility] Work Phone: 1(153) 731-886207-18-2023 Evaluation note* Diagnosis Onset Date Resolution Status Pain of left lower extremity acute Bronchiectasis acute Hypoxemia acute ERIS (obstructive sleep apnea) chronic Breast lump on left side at 1 o'clock position acute Left knee pain acute Restless leg syndrome chroni c 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 Essential hypertension acute Lightheadedness acute Hyperlipidemia chronic Mass of upper inner quadrant of left breast acute Contusion of thoracic wall a cute Lumbar contusion acute 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 Cancer acute Essential hypertension acute Hyperlipidemia acute Hypothyroidism acute Mass of upper inner quadrant of left breast acute Presence of stent in coronary artery acute Right inguinal hernia acute Vitamin B 12 deficiency acut e Gastroesophageal reflux disease chronic ERIS (obstructive sleep apnea) chronic Restless leg syndrome chroni c Sternal deformity acute [facility] Work Phone: 1(224) 259-713606-28-2023 Discharge summary Author Jerri Boyd [facility] February 12, 2023 1:48pm Note Date/Time February 12, 2023 1:48 pm [facility] Occupational Therapy [facility] [facility] [place] [address] / REHABILITATION SERVICES DISCHARGE SUMMARY MR#: [id number] Acct: [id number] Name: LAUREN ALCARAZ Rep #: [id number] : 1940 82 From: Jerri Boyd OTR/L, [...] Improvement % Improvement: 15 Objective Objective/Function: right wood fence erector strength 45# left 30# left lateral pinch 4# and tripod pinch 6# pt has not made gains in left wood fence erector strength and at this time is d/c. with HEP. pt has hx of left intra-articular fx of left distal radius as well as left thumbinstability this may be limiting pts strength as her wood fence erector strength is same from 2021 - pt [...] please fell free to call me at [phone]. Thank you for the referral of this patient. Sincerely, Jerri Boyd, OTR/L, CHT <Electronically signed by Jerri Boyd OTR/L, CHT> 02/12/23 1348 CC: Dr. Chema Perry MD ~ [place] Signed [facility] Work Phone: 1(901) 779-874706-06-2023 Discharge summary Author Gunnar Graves [facility] January 21, 2023 2:08pm Note Date/Time January 21, 2023 2:08p m [facility] Physical [facility] [address] [place] [address]. [address] [place] [address] / REHABILITATION SERVICES DISCHARGE SUMMARY MR#: [id number] Acct: [id number] Name: LAUREN ALCARAZ Rep #: [id number] : 1940 82 From: Gunnar Graves PT, ATC Referring Dr.: Dr. Chema Perry MD Status: REG RCR Insurance: MEDICARE PART A B [place] [id number] It has been my pleasure to treat [...] Goal Progress: Goal Met Plan: DC to routine If there are questions or concerns regarding this patient's physical therapy, please feel free to call me at [phone]. Thank you for the referral of thispatient. Sincerely, Gunnar Graves, PT, ATC Balance/Gait/Functional tests - Balance/Special Test Scores Lower Extremity Functional Score: 19 <Electronically signed by Gunnar Graves PT, ATC> 01/21/23 1408 CC: Dr. Chema Perry MD; Dr. Arun Ramos MD ~ [facility] Signed [facility] Work Phone: 1(332) 894-140504-19-2023 History of Present illness Narrative* Dina Jerry [...] [facility] Instructions* Patient Instructions* Laisha Lizarraga APRN.MANAGEMENT TECHNICIAN - 11/13/2022 1:56 PM EDT Notify me [...] last scan in 2019 - can call [phone] schedule [address] the [facility] desk 4. Please ambulate with caution! 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 She is using a Rollator today. Her goal is to walk unassisted. She has also been going to Cognitive/Speech therapy and feels it may be helping- someone down in the [place] area linked w/ her other therapies She [...] resources to help care for yourself? No messenger floorperson Has your caregiver accompanied you today? Yes [...] from 2007 DATE: June 15, 2008 NO: [id number] Indication: Question of seizure Medications: None given [...] last scan in 2019 - can call [phone] the [facility] desk 4. Please ambulate with caution! Follow up in about 3 months to recheck on things or sooner if tests are done earlier I spent a total of 40 minutes on the date of service which included vdgf-ts-dosx patient care and counseling and educating the patient/spouse. Laisha Lizarraga, MSN, CRIMINAL INTELLIGENCE ANALYST-C, CNRN CC: 1. Chema Perry MD, (fax) [phone] documented in this encounterPromedica Defiance [facility]03-01-[address] Keith [facility] October 16, 2022 8:20pm Note Date/Time October 16, 2022 6:[address] [facility] Medical Records Department [address] [place] [address] Emergency Department Summary 10/16/22 MR#: [id number] Acct: [id number] Name: LAUREN ALCARAZ Rep #: [id number] : 1940 82 From: Cal Keith MD PCP: Dr. Chema Perry MD Status:REG ER Location: ED HPI History of Present Illness Chief Complaint: Upper Extremity Injury Narrative Narrative: 82-year-old female, essentially anzih-yqto-ijspcrea, presents with pain and swelling of her [...] encephalopathy Arthritis Asthma Atherosclerotic heart disease of teller coronary artery without angina pectoris Back pain [...] mg/mL subcutaneous syringe (Prolia) 60 mg subcut [id number] 06/07/22 [History Last Taken Unknown] famotidine 10 [...] Prolia 60 mg/mL syringe 60 mg subcut [id number] d-mannose 500 mg capsule 500 mg PO [...] your Primary Care Provider. Call [facility] ([phone]) or report to the closest Emergency Room. Call 911 if necessary. 10/16/222019 <Electronically signed by Cal Keith MD> Cosigner Signature (if applicable): CC: Dr. Ernesto Logan DO; Dr. Chema Perry MD; Dr. Shiraz Blanchard DO ~ Signed [facility] Work Phone: 1(968) 711-159412-29-2022 Discharge summary Author Gunnar Graves [facility] August 15, 2022 12:04pm Note Date/Time August 15, 2022 12:04pm [facility] Physical Therapy [facility] [address] [place] [address]. [address] [place] [address] / REHABILITATION SERVICES DISCHARGE SUMMARY MR#: [id number] Acct: [id number] Name: LAUREN ALCARAZ Rep #: [id number] : 1940 81 From: Gunnar Graves PT, ATC Referring Dr.: Dr. Arun Ramos MD Status: REG RCR Insurance: MEDICARE PART A B [place] [id number] It has been my pleasure to treat [...] please feel free to call me at [phone]. Thank you for the referral of thispatient. Sincerely, Gunnar Graves, PT, ATC Balance/Gait/Functional tests - Balance/Special Test Scores Lower Extremity Functional Score: 41 <Electronically signed by Gunnar Graves PT, ATC> 08/15/22 1209 CC: Dr. Chema Perry MD; Dr. Arun Ramos MD ~ [facility] Signed [facility] Work Phone: 1(807) 993-303408-25-2022 Instructions* Patient Instructions* Laisha Lizarraga APRN.MANAGEMENT TECHNICIAN - 04/11/2022 1:39 PM EDT Let's consider having you try some Cognitive Therapy (cognitive-linguistic speech therapy) sessionsthat may help with some of the cognitive issues that you're still dealing with- may help with word-finding, mental calculation, and other things. The main scheduling number is [phone] and some of the therapists are below: Jeny Leonard, SALES REPRESENTATIVE ADDING MACHINES at [facility] - call [phone] Sydni Johnson, SALES REPRESENTATIVE ADDING MACHINES -- [facility], [place] [id number] (appt [phone]) Kinza Handley, SALES REPRESENTATIVE ADDING MACHINES at [facility] ([phone]) Kenneth Mayorga (Tricia) at [facility] ([phone]) Sandra Goode at [facility] ([phone]) Ale Lopez, SALES REPRESENTATIVE ADDING MACHINES at [facility] [facility] ([phone]) Emily Ruvalcaba, SALES REPRESENTATIVE ADDING MACHINES at [facility] ([phone] ph; [phone] fax) Sydni Moreno, SALES REPRESENTATIVE ADDING MACHINES -- [facility] [place] ([phone]) Chata Patel, SALES REPRESENTATIVE ADDING MACHINES -- [facility] ([phone]) 2. I'd hold off on starting a [...] Present illness Narrative* Laisha Lizarraga APRN.ALBERT - 04/11/2022 1:00 PM EDT Lauren Alcaraz 1940 [address] [facility] [address] [facility] [address] April 11, 2022 [facility] [...] since November- was previously staying at [facility] -- some gait-freezing noted from the in-home PT therapists No changes in plan of care were made at last visit Today, Lauren and her spouse Delroy return for a follow up visit She actually did have a fall at the end of February - they were going to see the opera in [place] and she got out of the car [...] Never Social History reviewed by Laisha Lizarraga APRN.MANAGEMENT TECHNICIAN PATIENT-ENTERED DATA Patient-Reported 04/08/2022 01/17/2022 Where are [...] from 2007 DATE: June 15, 2008 NO: [id number] Indication: Question of seizure Medications: None given [...] other things. The main scheduling number is [phone] and some of the therapists are below: Jeny Leonard, SALES REPRESENTATIVE ADDING MACHINES at [facility] - call [phone] Sydni Johnson, SALES REPRESENTATIVE ADDING MACHINES -- [facility], Desk C22 (appt [phone]) Kinza Handley, SALES REPRESENTATIVE ADDING MACHINES at [facility] ([phone]) Kenneth Mayorga (Tricia) at [facility] ([phone]) Sandra Goode at [facility] ([phone]) Ale Lopez, SALES REPRESENTATIVE ADDING MACHINES at [facility] ([phone]) Emily Ruvalcaba, SALES REPRESENTATIVE ADDING MACHINES at [facility] ([phone] ph; [phone] fax) Sydni Moreno, SALES REPRESENTATIVE ADDING MACHINES -- [facility] / [place] ([phone]) Chata Patel, SALES REPRESENTATIVE ADDING MACHINES -- [facility] ([phone]) 2. I'd hold off on starting a [...] on the date of service which included [id number] patient care and counseling and educating the patient/spouse. Laisha Lizarraga, OSORIO, CRIMINAL INTELLIGENCE ANALYST-C, CNRN documented in this encounterPromedica Defiance Regional [...] [facility] Instructions* Patient Instructions* Laisha Lizarraga APRN.MANAGEMENT TECHNICIAN - 01/23/2022 11:30 AM EDT 1. Continue [...] 11:13 AM EDT Lauren Alcaraz 1940 [address] [facility] [address] [facility] [address] January 23, 2022 [place] [facility] FOLLOW-UP NOTE Accompanied by: [...] She had spent some time at [facility] and some of her medications were discontinued by her [employer] Consultant Dr. Ramos. Today, Lauren and her spouse Delroy return for a routine follow up visit. She has been back home since mid-November - was previously staying at [facility]. Delroy reports that the Physical Therapists have [...] has seemed to help her dizziness per Delryo's report. She continues to have a significant [...] by Laisha Lizarraga APRN.CNP PATIENT-ENTERED DATA Patient-Reported 01/17/2022 11/07/2021 Where are you currently living? Home / Private residence senior care / assisted facility Are you using any community resources [...] from 2007 DATE: June 15, 2008 NO: [id number] Indication: Question of seizure Medications: None given [...] on the date of service which included [id number] patient care and counseling and educating the patient/spouse. Dr. Muse was present for this visit and is in agreement with the plan stated above. He did perform the neurological exam. Laisha Lizarraga, MSN, CRIMINAL INTELLIGENCE ANALYST-C, CNRN History, previous evaluations and examination reviewed [...] which included preparing to see the patient, [id number] patient care, completing clinical documentation, obtaining and/or reviewing separately obtained history, performing a medically appropriate examination, counseling and educating the pat ient/family/caregiver and ordering medications, tests, or procedures. documented in this encounterPromedica Defiance [facility]06-08-2022 Nurse Note* Layne Leon LPN - [...] Unknown) BMI 24.04 kg/m documented in this encounterPromedica Defiance [facility]03-29-2022 Instructions* Patient Instructions* Laisha Lizarraga APRN.MANAGEMENT TECHNICIAN - 11/13/2021 12:16 PM EDT 1. No [...] Dr. Muse in January documented in this encounterPromedica Defiance [facility]03-29-2022 History of Present illness Narrative* Laisha Lizarraga APRN.ALBERT - 11/13/2021 11:30 AM EDT Lauren Alcaraz 1940 [address] [facility] [address] [facility] [address] November 13, 2021 [place] [facility] FOLLOW-UP NOTE Accompanied by: [...] hospitalized and transferred [place] care [place] where [place] contracted Covid-19, she remained at that care facility for approximately one month.. Upon leaving transitional care, pt was returned to hospital d/t spouses inability to care at the level required, pt transferred to [facility] [place] where she currently has been since. Pt [...] Never Social History reviewed by Laisha Lizarraga APRN.MANAGEMENT TECHNICIAN PATIENT-ENTERED DATA Patient-Reported 11/07/2021 10/04/2021 Where are you currently living? senior care / assisted facility Home / Private residence Are you using any community resources to help care for yourself? No messenger floorperson Has your caregiver accompanied you today? Yes [...] Total Score: 02/14 Visuospatial/Executive: 0/5 Namin/3 Attention: 16 Language: 13 Abstraction: 0/2 Delayed Recall: 08/22 [...] from 2007 DATE: June 15, 2008 NO: [id number] Indication: Question of seizure Medications: None given [...] on the date of service which included [id number] patient care and counseling and educating the patient/spouse. This note was generated with the assistance of Isma Torres, MANAGEMENT TECHNICIAN Student. I was present for the entirety of the visit and participated in the interview and formulation of plan. Laisha Lizarraga, MSN, CRIMINAL INTELLIGENCE ANALYST-C, CNRN documented in this encounterPromedica Defiance Regional [...] for Visit Atherosclerotic hear t disease of teller coronary artery without angina pectoris Debility Essential [...] Restless leg syndrome Atherosclerotic heart disease of teller coronary artery without angina pectoris Essential hypertension Lightheadedness Hyperlipidemia Mass of upper inner quadrant of left breast Contusion of thoracic wall Lumbar contusion Atherosclerotic heart disease of teller coronary artery without angina pectoris Cancer Essential hypertension Hyperlipidemia Hypothyroidism Mass of upper inner quadrant of left breast Presence of stent in coronary artery Right inguinal hernia Vitamin B 12 deficiency Gastroesophageal reflux disease ERIS (obstructive sleep apnea) Restless leg syndrome [facility] Work Phone: Chief complaint+Reason for visit Narrative* [...] for Visit Atherosclerotic hear t disease of teller coronary artery without angina pectoris Debility Essential [...] Restless leg syndrome Atherosclerotic heart disease of teller coronary artery without angina pectoris Essential hypertension Lightheadedness Hyperlipidemia Mass of upper inner quadrant of left breast Contusion of thoracic wall Lumbar contusion Atherosclerotic heart disease of teller coronary artery without angina pectoris Cancer Essential hypertension Hyperlipidemia Hypothyroidism Mass of upper inner quadrant of left breast Presence of stent in coronary artery Right inguinal hernia Vitamin B 12 deficiency Gastroesophageal reflux disease ERIS (obstructive sleep apnea) Restless leg syndrome [facility] Work Phone: Chief complaint+Reason for visit Narrative* [...] Restless leg syndrome Atherosclerotic heart disease of teller coronary artery without angina pectoris Essential hypertension Lightheadedness Hyperlipidemia Mass of upper inner quadrant of left breast Contusion of thoracic wall Lumbar contusion Atherosclerotic heart disease of teller coronary artery without angina pectoris Cancer Essential hypertension Hyperlipidemia Hypothyroidism Mass of upper inner quadrant of left breast Presence of stent in coronary artery Right inguinal hernia Vitamin B 12 deficiency Gastroesophageal reflux disease ERIS (obstructive sleep apnea) Restless leg syndrome Sternal deformity [facility] Work Phone: Consult note Author Damien Burleson [facility] Note Date/Time February 06, 2025 10:5 2am [facility] Medical Records Department [address] [place] [address] Consultation - Orthopedics 02/06/25 1040 MR#: [id number] Acct: [id number] Name: LAUREN ALCARAZ Rep #: [id number] : 1940 84 From: Damien Burleson MD PCP: Dr. Chema Perry MD Status:REG ER Location: ED HPI Consult Data Date of Consult: 02/06/25 HPI Narrative HPI Narrative: LAUREN ALCARAZ, is a 84 F who presents with failure to cope and pain related toa distal clavicle fracture. [facility] Medical History Leg edema Open wound of right lower [...] coronary artery (~1989) Atherosclerotic heart disease of teller coronary artery without angina pectoris Essential hypertension [...] denosumab 60 mg/mL subcutaneous 60 mg subcut [id number] #1 mL 01/24/25 Unknown Rx syringe (Prolia) [...] / Time doxycycline Allergy Mild Vomiting Verified 02/06/25 07:30 acetaminophen (From Allergy Other Verified 02/06/25 07:30 Darvocet-N) lamotrigine (From Lamictal) Allergy Lip Verified 02/06/25 07:30 Swelling moxifloxacin HCl (From Allergy Other Verified 02/06/25 07:30 Avelox) propoxyphene napsylate (From Allergy Other Verified 02/06/25 07:30 Darvocet-N) hydrocodone AdvReac Severe Confusion Verified 02/06/25 07:30 oxycodone (From Percocet) AdvReac Severe Confusion Verified 02/06/25 07:30 zolpidem tartrate (From AdvReac Other Verified 02/06/25 07:30 Ambien) Family History (Reviewed 10/22/24 @ 14:32 by Sandra Vincent CRIMINAL INTELLIGENCE ANALYST, CRIMINAL INTELLIGENCE ANALYST-C) Mother CVA (cerebral vascular accident) Arthritis Father [...] do you feel safe at home: Yes Vital Signs Vital Signs Vital Signs: 02/06/25 07:30 Temperature 98.6 F Temperature Source Oral Pulse Rate 74 Respiratory Rate 18 Blood Pressure 119/80 Blood Pressure Mean 93 Pulse Ox 98 Oxygen Delivery Method Room Air Weight Weight: 109 lb 12.643 oz Body Mass Index (BMI) 25.4 Lab / Micro Data 02/06/25 08:22 02/06/25 08:22 Labs: Laboratory Results - last 24 hr 02/06/25 08:22: WBC 4.8, RBC 3.23 L, Hgb 9.2 L, Hct 29.5 L, MCV 91.3, MCH 28.5, MCHC 31.2 L, RDW Std Deviation 43.9, RDW Coeff of Jorge 13.3, Plt Count 143 L, MPV10.4, Sodium 137, Potassium 4.0, Chloride 101, Carbon Dioxide 27.4, Anion Gap 9,BUN 16, Creatinine 0.88, Estim Creat Clear Calc 35.40 L, Est GFR (MDRD) Non-Af 66, BUN/Creatinine Ratio 18.3, Glucose 107 H, Calcium 8.7, Total Bilirubin 0.54,AST 24, ALT 14, Alkaline Phosphatase 98, Total Protein 6.2, Albumin 3.3 L, Globulin 2.8, Albumin/Globulin Ratio 1.2 Imaging Radiology Impression Clavicle X-Ray 02/06/25 07:53 IMPRESSION: No obvious change in the known acute, displaced right distal clavicular fracture. Reading Location: [facility] Humerus X-Ray 02/06/25 07:53 IMPRESSION: NO ACUTE FRACTURE OR DISLOCATION. Reading Location: [facility] Assessment & Plan Assessment/Plan (1) Closed fracture of right clavicle: PLAN: 84 F with right shoulder pain, failure to cope / need for pain management,closed injury per ED provider, no threatening of the skin. Happened 3 days ago. Reviewed the images and CT scan. Type 1 distal clavicle fracture, but also looks like asx disruption of CC ligaments with space increased to 20mm on the CT. Preferred option here despite unstable nature of the fracture given the patientsage, functional demands, and medical hx including being on apixaban would be nonoperative with pain control and sling. Typically type 1 distal clavicle heals with non op mgt, but with the large fracture gap and disruption of the CC ligaments most likely would create residential pain and disability. That being said, surgery still has risks because of her medical issues. Surgery would be inthe form of CC ligament reconstruction with allograft (tib ant or semi T) and hook plate to protect. This has downsides as well. Possible infection due to theallograft, large nature of the surgery - 2 hour case, dependence on bone qualityof the coracoid and especially the acromion (fracture, cuff injury) with the hook plate and need for a second surgery to remove the hook plate. Weighing the pros and cons, overall my recommednation here would be non operative care, but OK to admit the patient for pain control and I can speak to them about the options within the next couple days. 02/06/25 1052 <Electronically signed by Damien Burleson MD> Cosigner Signature (if applicable): CC: Dr. Chema Perry MD~ Signed [facility] Work Phone: Discharge summary Author Isma Bustamante [facility] Note Date/Time February 03, 2025 7:[address] [facility] Medical Records Department [address] [place] [address] Emergency Department Summary 02/03/25 MR#: [id number] Acct: [id number] Name: LAUREN ALCARAZ Rep #: [id number] : 1940 84 From: Isma Bustamante DO [...] in for evaluation. She denies any otherinjury [facility] Medical History (Updated 02/03/25 @ 07:58 by [...] coronary artery (~1989) Atherosclerotic heart disease of teller coronary artery without angina pectoris Essential hypertension [...] denosumab 60 mg/mL subcutaneous 60 mg subcut [id number] #1 mL 01/24/25 Unknown Rx syringe (Prolia) [...] (Reviewed 10/22/24 @ 14:32 by Sandra Vincent CRIMINAL INTELLIGENCE ANALYST, CRIMINAL INTELLIGENCE ANALYST-C) Mother CVA (cerebral vascular accident) Arthritis Father [...] changes of the humeral head. Reading Location: [place] [address] X-ray of the right shoulder as interpreted by the emergency medicine physician reveals a fracture to the distal aspect of the right clavicle with cranial displacement. No obvious joint effusion or shoulder dislocation Discharge Plan Triage Chief Complaint: Upper Extremity Injury ED Provider: Isma Bustamante Dx/Rx/DC Orders Clinical Impression: Closed fracture of right clavicle, Essential hypertension, Hyperlipidemia, Hypothyroidism, Current use of buttermaker continuous churn anticoagulation Instructions: ED Fracture, Clavicle Prescriptions: New [...] .MEDSUPPLY Rx Instructions: Bd SYR/leticia Eclipse 3ml #2347 BD Sry/needle eclips See Rx Instructions IM .COMPLEX Qty: 12 0RF Rx Instructions: intramuscularly; 3ml #[id number] uses 1 a month (DME) PEP device [...] 0RF Rx Instructions: Can be administered at [facility] Prolia 60 mg/mL syringe 60 mg subcut [id number] Qty: 1 5RF Primary Care Provider: Chema Perry Referrals: Chema Perry MD [Primary Care Provider] - Jean Claude Quintanilla DO [[facility] Staff - Active Staff] - (Clavicle fracture) Activity Restrictions/Additional Instructions: Wear sling for stabilization of your fractured clavicle. Follow-up with Dr. Quintanilla for repeat evaluation early next week and to discuss further treatment options. Return to the ER should you have any further concerns Print Language: British Disposition Disposition: Home, Self Care What to do if you have Problems For any increased pain, shortness of breath, bleeding, nausea or vomiting, chestpain, or any unexpected problems, contact your Primary Care Provider. Call [facility] ([phone]) or report to the closest Emergency Room. Call 911 if necessary. 02/03/25 0751 <Electronically signed by Isma Bustamante DO> Cosigner Signature (if applicable): CC: Dr. Chema Perry MD ~ Signed [facility] Work Phone: Evaluation note* Diagnosis Dementia without [...] ERIS (obstructive sleep apnea) chronic COVID-19 resolved [facility] Work Phone: Evaluation note* Diagnosis Dementia without behavioral disturbance, unspecified dementia type (HCC)- Primary History of complex partial epilepsy Personal history of other disorders of nervous system and sense organs Gait instability Abnormality of gait Multiple falls Personal history of fall Depression, unspecified depression type Anxiety Anxiety state, unspecified Physical deconditioning Debility, unspecified documented in this encounter [facility]* Diagnosis Onset Date Resolution Status Bronchiectasis acute Hiatal hernia acute ERIS (obstructive sleep apnea) chronic COVID-19 resolved Bronchiectasis acute Shortness of breath on exertion acute COVID-19 resolved [facility] Work Phone: Evaluation note* Diagnosis Onset Date Resolution Status Bronchiectasis acute Shortness of breath on exertion acute COVID-19 resolved [facility] Work Phone: Evaluation note* Diagnosis Dementia without [...] (obstructive sleep apnea) chronic Intermittent constipation ac [place] Leg edema, left acute Varicose veins of both legs with edema acute Debility acute Lightheadedness acute Overactive bladder acute 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 Essential hypertension acute Presence of stent in coronary artery acute Hyperlipidemia chronic Bronchiectasis acute Hypoxemia acute Abdominal wall hernia acute Essential hypertension acute Restless leg syndrome chroni c Seizure disorder chronic Acute bronchitis acute [facility] Work Phone: Evaluation note* Diagnosis Onset Date Resolution Status Bronchiectasis acute Hypoxemia acute ERIS (obstructive sleep apnea) chronic Intermittent constipation ac [place] Leg edema, left acute Varicose veins of both legs with edema acute Debility acute Lightheadedness acute Overactive bladder acute 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 Essential hypertension acute Presence of stent in coronary artery acute Hyperlipidemia chronic Bronchiectasis acute Hypoxemia acute Abdominal wall hernia acute Essential hypertension acute Restless leg syndrome chroni c Seizure disorder chronic Acute bronchitis acute [facility] Work Phone: Evaluation note* Diagnosis Onset Date Resolution Status Intermittent constipation ac [place] Leg edema, left acute Varicose veins of both legs with edema acute Debility acute Lightheadedness acute Overactive bladder acute 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 Essential [...] Resolution Status 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 Essential [...] Resolution Status 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 Essential [...] Left elbow contusion acute Scalp contusion acute [facility] Work Phone: Evaluation note* Diagnosis Onset Date [...] Left elbow contusion acute Scalp contusion acute [facility] Work Phone: Evaluation note* Diagnosis Dementia without [...] contusion acute 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 Debility acute Essential hypertension acute Falls frequently acute Hyperlipidemia acute Hypothyroidism acute Lightheadedness acute Overactive bladder acute Seizure disorder acute Vascular dementia acute Vitamin B 12 deficiency acut e Vitamin D deficiency resolve d Contact with and (suspected) exposure to other viral communicable diseases acute [facility] Work Phone: Evaluation note* Diagnosis Onset Date Resolution Status Contusion of left shoulder a cute Contusion of left wrist acut e Left elbow contusion acute Scalp contusion acute 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 Debility [...] chroni c 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 Essential hypertension acute Lightheadedness acute Hyperlipidemia chronic Mass of upper inner quadrant of left breast acute [facility] Work Phone: Evaluation note* Diagnosis Onset Date Resolution Status 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 Debility [...] chroni c 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 Essential hypertension acute Lightheadedness acute Hyperlipidemia chronic Mass of upper inner quadrant of left breast acute Contusion of thoracic wall a cute Lumbar contusion acute 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 Cancer acute Essential hypertension acute Hyperlipidemia acute Hypothyroidism acute Mass of upper inner quadrant of left breast acute Presence of stent in coronary artery acute Right inguinal hernia acute Vitamin B 12 deficiency acut e Gastroesophageal reflux disease chronic ERIS (obstructive sleep apnea) chronic Restless leg syndrome chroni c [facility] Work Phone: Evaluation note* Diagnosis 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, psychotic disturbance, mood disturbance, or anxiety (HCC) documented in this encounter [facility]* Diagnosis Onset Date Resolution Status 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 Essential hypertension acute Lightheadedness acute Hyperlipidemia chronic Mass of upper inner quadrant of left breast acute Contusion of thoracic wall a cute Lumbar contusion acute 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 Cancer [...] Bee sting acute Bronchiectasis acute Hypoxemia chronic [facility] Work Phone: Evaluation note* Diagnosis Onset Date Resolution Status Sternal deformity acute Bee sting acute Bronchiectasis acute Hypoxemia chronic 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 ALEXANDER (dyspnea on exertion) [place] Hyperlipidemia [facility] Work Phone: Evaluation note* Diagnosis Mild mixed [...] in this encounter [facility]* Diagnosis Onset Date Resolution Status Bee sting acute Bronchiectasis acute Hypoxemia chronic 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 ALEXANDER (dyspnea on exertion) [place] Hyperlipidemia [facility] Work Phone: Evaluation note* Diagnosis Mild mixed [...] in this encounter [facility]* Diagnosis Onset Date Resolution Status 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 Debility acute Essential hypertension acute Falls frequently acute Hiatal hernia acute Hyperlipidemia acute Restless leg syndrome acute Right inguinal hernia acute Vascular dementia acute Difficulty swallowing chroni c Hiatal hernia acute Mass of upper inner quadrant of left breast acute Sternal deformity acute Osteoporosis chronic Bronchiectasis acute Hypoxemia [facility] Work Phone: Evaluation note* Diagnosis Primary open angle glaucoma (POAG) of both eyes, severe stage- Primary documented in this encounter [facility]* Diagnosis Onset Date Resolution Status 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 Debility acute Essential hypertension acute Falls frequently acute Hiatal hernia acute Hyperlipidemia acute Restless leg syndrome acute Right inguinal hernia acute Vascular dementia acute Difficulty swallowing chroni c Hiatal hernia acute Mass of upper inner quadrant of left breast acute Sternal deformity acute Osteoporosis chronic Bronchiectasis acute Hypoxemia chronic 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 Dizziness acute Hyperlipidemia [facility] Work Phone: Evaluation note* Diagnosis Onset Date Resolution Status Hiatal hernia acute Mass of upper inner quadrant of left breast acute Sternal deformity acute Osteoporosis chronic Bronchiectasis acute Hypoxemia chronic 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 Dizziness acute Hyperlipidemia [facility] Work Phone: Evaluation note* Diagnosis 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, psychotic disturbance, mood disturbance, or anxiety (HCC) [facility] Diagnosis 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, psychotic disturbance, mood disturbance, or anxiety (HCC) [facility]* Diagnosis 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, psychotic disturbance, mood disturbance, or anxiety (HCC)- Primary Physical deconditioning Debility, unspecified Gait instability Abnormality of gait Fine motor impairment Other specified conditions influencing health status Dizziness Dizziness and giddiness Depression, unspecified depression type 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) (postural) [facility]* Diagnosis Primary open angle glaucoma (POAG) of both eyes, severe stage [facility]* Diagnosis Dementia without behavioral disturbance (HCC) Dementia, unspecified, without behavioral disturbance documented in this encounter [facility] note* Diagnosis Hiatal hernia- Primary Diaphragmatic hernia without mention of obstruction or gangrene Gastroesophageal reflux disease, unspecified whether esophagitis present [facility]* Diagnosis H/O acute myocardial infarction- Primary Old myocardial infarction Cardiomyopathy, unspecified type (HCC) Pre-op evaluation Preoperative examination, unspecified Encounter to establish care Other reasons for seeking consultation [facility]* Diagnosis Hiatal hernia- Primary Diaphragmatic hernia without mention of obstruction or gangrene [facility]* Diagnosis Hiatal hernia Diaphragmatic hernia without mention of obstruction or gangrene [facility]* Diagnosis Mild mixed vascular and neurodegenerative [...] syndrome Restless legs syndrome (RLS) 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) Essential hypertension [...] chronicity, unspecified whether acute cor pulmonale present ([facility]) * Assessment & Plan Note - Willa [...] AD biomarkers negative [facility] Diagnosis Pre-operative examination- Primary Preoperative examination, unspecified Dementia without behavioral disturbance (HCC) Dementia, unspecified, without behavioral disturbance MS (multiple sclerosis) (HCC) Multiple sclerosis History of complex partial epilepsy Personal history of other disorders of nervous system and sense organs Restless legs syndrome Restless legs syndrome (RLS) 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) Essential hypertension [...] obstruction or gangrene [facility]* Diagnosis Pre-operative examination- Primary Preoperative examination, unspecified Dementia without behavioral disturbance (HCC) Dementia, unspecified, without behavioral disturbance MS (multiple sclerosis) (HCC) Multiple sclerosis History of complex partial epilepsy Personal history of other disorders of nervous system and sense organs Restless legs syndrome Restless legs syndrome (RLS) 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) Essential hypertension [...] [facility]* Diagnosis Pre-operative examination- Primary Preoperative examination, unspecified Dementia without behavioral disturbance (HCC) Dementia, unspecified, without behavioral disturbance MS (multiple sclerosis) (HCC) Multiple sclerosis History of complex partial epilepsy Personal history of other disorders of nervous system and sense organs Restless legs syndrome Restless legs syndrome (RLS) 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) Essential hypertension [...] to lipid rich plaque Cardiomyopathy, unspecified type ([facility]) [facility]* Diagnosis Pre-operative examination- Primary Preoperative examination, unspecified Dementia without behavioral disturbance (HCC) Dementia, unspecified, without behavioral disturbance MS (multiple sclerosis) (HCC) Multiple sclerosis History of complex partial epilepsy Personal history of other disorders of nervous system and sense organs Restless legs syndrome Restless legs syndrome (RLS) 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) Essential hypertension [...] history of fall documented [facility] this [facility]* Diagnosis Pre-operative examination- Primary Preoperative examination, unspecified Dementia without behavioral disturbance (HCC) Dementia, unspecified, without behavioral disturbance MS (multiple sclerosis) (HCC) Multiple sclerosis History of complex partial epilepsy Personal history of other disorders of nervous system and sense organs Restless legs syndrome Restless legs syndrome (RLS) 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) Essential hypertension [...] Preoperative examination, unspecified documented in this encounter [facility] note* Diagnosis Pre-operative examination- Primary Preoperative examination, unspecified Dementia without behavioral disturbance (HCC) Dementia, unspecified, without behavioral disturbance MS (multiple sclerosis) (HCC) Multiple sclerosis History of complex partial epilepsy Personal history of other disorders of nervous system and sense organs Restless legs syndrome Restless legs syndrome (RLS) 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) Essential hypertension [...] in [facility]* Diagnosis Pre-operative examination- Primary Preoperative examination, unspecified Dementia without behavioral disturbance (HCC) Dementia, unspecified, without behavioral disturbance MS (multiple sclerosis) (HCC) Multiple sclerosis History of complex partial epilepsy Personal history of other disorders of nervous system and sense organs Restless legs syndrome Restless legs syndrome (RLS) 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) Essential hypertension [...] Preoperative examination, unspecified documented in this encounter [facility] note* Diagnosis Pre-operative examination- Primary Preoperative examination, unspecified Dementia without behavioral disturbance (HCC) Dementia, unspecified, without behavioral disturbance MS (multiple sclerosis) (HCC) Multiple sclerosis History of complex partial epilepsy Personal history of other disorders of nervous system and sense organs Restless legs syndrome Restless legs syndrome (RLS) 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) Essential hypertension [...] syndrome Restless legs syndrome (RLS) 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) Essential hypertension [...] [facility]* Diagnosis Pre-operative examination- Primary Preoperative examination, unspecified Dementia without behavioral disturbance (HCC) Dementia, unspecified, without behavioral disturbance MS (multiple sclerosis) (HCC) Multiple sclerosis History of complex partial epilepsy Personal history of other disorders of nervous system and sense organs Restless legs syndrome Restless legs syndrome (RLS) 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) Essential hypertension [...] Preoperative examination, unspecified documented in this encounter [facility] note* Diagnosis Pre-operative examination- Primary Preoperative examination, unspecified Dementia without behavioral disturbance (HCC) Dementia, unspecified, without behavioral disturbance MS (multiple sclerosis) (HCC) Multiple sclerosis History of complex partial epilepsy Personal history of other disorders of nervous system and sense organs Restless legs syndrome Restless legs syndrome (RLS) 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) Essential hypertension [...] syndrome Restless legs syndrome (RLS) 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) Essential hypertension [...] Assessment & Plan Note - Brenda Moreland APRN.MANAGEMENT TECHNICIAN - 09/14/2024 2:00 PM EST Associated Problem(s): [...] syndrome Restless legs syndrome (RLS) 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) Essential hypertension [...] chronic pain- Primary [facility] Diagnosis Pre-operative examination- Primary Preoperative examination, unspecified Dementia without behavioral disturbance (HCC) Dementia, unspecified, without behavioral disturbance MS (multiple sclerosis) (HCC) Multiple sclerosis History of complex partial epilepsy Personal history of other disorders of nervous system and sense organs Restless legs syndrome Restless legs syndrome (RLS) 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) Essential hypertension [...] other specified site [facility] Diagnosis Pre-operative examination- Primary Preoperative examination, unspecified Dementia without behavioral disturbance (HCC) Dementia, unspecified, without behavioral disturbance MS (multiple sclerosis) (HCC) Multiple sclerosis History of complex partial epilepsy Personal history of other disorders of nervous system and sense organs Restless legs syndrome Restless legs syndrome (RLS) 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) Essential hypertension [...] syndrome Restless legs syndrome (RLS) 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) Essential hypertension [...] syndrome Restless legs syndrome (RLS) 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) Essential hypertension [...] Other postprocedural status documented in this encounter [facility]* Diagnosis Pre-operative examination- Primary Preoperative examination, unspecified Dementia without behavioral disturbance (HCC) Dementia, unspecified, without behavioral disturbance MS (multiple sclerosis) (HCC) Multiple sclerosis History of complex partial epilepsy Personal history of other disorders of nervous system and sense organs Restless legs syndrome Restless legs syndrome (RLS) 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) Essential hypertension [...] chronicity, unspecified whether acute cor pulmonale present ([facility]) Preoperative examination- Primary Preoperative examination, unspecified Coronary [...] [facility] Diagnosis Pre-operative examination- Primary Preoperative examination, unspecified Dementia without behavioral disturbance (HCC) Dementia, unspecified, without behavioral disturbance MS (multiple sclerosis) (HCC) Multiple sclerosis History of complex partial epilepsy Personal history of other disorders of nervous system and sense organs Restless legs syndrome Restless legs syndrome (RLS) 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) Essential hypertension [...] chronicity, unspecified whether acute cor pulmonale present ([facility]) Preoperative examination- Primary Preoperative examination, unspecified Coronary [...] Abdominal pain, generalized documented [facility]* Diagnosis Pre-operative examination- Primary Preoperative examination, unspecified Dementia without behavioral disturbance (HCC) Dementia, unspecified, without behavioral disturbance MS (multiple sclerosis) (HCC) Multiple sclerosis History of complex partial epilepsy Personal history of other disorders of nervous system and sense organs Restless legs syndrome Restless legs syndrome (RLS) 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) Essential hypertension [...] chronicity, unspecified whether acute cor pulmonale present ([facility]) Preoperative examination- Primary Preoperative examination, unspecified Coronary [...] of ulnar nerve documented [facility]* Diagnosis Pre-operative examination- Primary Preoperative examination, unspecified Dementia without behavioral disturbance (HCC) Dementia, unspecified, without behavioral disturbance MS (multiple sclerosis) (HCC) Multiple sclerosis History of complex partial epilepsy Personal history of other disorders of nervous system and sense organs Restless legs syndrome Restless legs syndrome (RLS) 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) Essential hypertension [...] syndrome Restless legs syndrome (RLS) 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 Essential hypertension Unspecified [...] [facility]* Diagnosis Pre-operative examination- Primary Preoperative examination, unspecified Dementia without behavioral disturbance (HCC) Dementia, unspecified, without behavioral disturbance MS (multiple sclerosis) (HCC) Multiple sclerosis History of complex partial epilepsy Personal history of other disorders of nervous system and sense organs Restless legs syndrome Restless legs syndrome (RLS) 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 Essential hypertension Unspecified [...] syndrome Restless legs syndrome (RLS) 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 Essential hypertension Unspecified [...] [facility]* Diagnosis Pre-operative examination- Primary Preoperative examination, unspecified Dementia without behavioral disturbance (HCC) Dementia, unspecified, without behavioral disturbance MS (multiple sclerosis) (HCC) Multiple sclerosis History of complex partial epilepsy Personal history of other disorders of nervous system and sense organs Restless legs syndrome Restless legs syndrome (RLS) 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 Essential hypertension Unspecified [...] of biliary tract [facility]* Diagnosis Pre-operative examination- Primary Preoperative examination, unspecified Dementia without behavioral disturbance (HCC) Dementia, unspecified, without behavioral disturbance MS (multiple sclerosis) (HCC) Multiple sclerosis History of complex partial epilepsy Personal history of other disorders of nervous system and sense organs Restless legs syndrome Restless legs syndrome (RLS) 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 Essential hypertension Unspecified [...] syndrome Restless legs syndrome (RLS) 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 Essential hypertension Unspecified [...] syndrome Restless legs syndrome (RLS) 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 Essential hypertension Unspecified [...] syndrome Restless legs syndrome (RLS) 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 Essential hypertension Unspecified [...] in [facility]* Diagnosis Pre-operative examination- Primary Preoperative examination, unspecified Dementia without behavioral disturbance (HCC) Dementia, unspecified, without behavioral disturbance MS (multiple sclerosis) (HCC) Multiple sclerosis History of complex partial epilepsy Personal history of other disorders of nervous system and sense organs Restless legs syndrome Restless legs syndrome (RLS) 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 Essential hypertension Unspecified [...] syndrome Restless legs syndrome (RLS) 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 Essential hypertension Unspecified [...] disturbance, psychotic disturbance, mood disturbance, or anxiety ([facility])- Primary Physical deconditioning Debility, unspecified Gait instability Abnormality of gait Fine motor impairment Other specified conditions influencing health status Dizziness Dizziness and giddiness Cognitive communication deficit Idiopathic peripheral neuropathy Unspecified hereditary and idiopathic peripheral neuropathy Restless legs syndrome Restless legs syndrome (RLS) [facility] Additional Instructions 5 sutures were placed in your scalp to stop the bleeding from the laceration. The sutures will need to be removed in 10 to 14 days. Please see your family doctor or return to the ER for suture removal. Please return for repeat evaluation if he have any further concerns [facility] Work Phone: Hospital Discharge instructions Additional Instructions Wear sling for stabilization of your fractured clavicle. Follow-up with Dr. Quintanilla for repeat evaluation early next week and to discuss further treatment options. [facility] Reason for referral (narrative)* Outpatient Procedure (Routine) - New Request Specialty Diagnoses / Procedures Referred By Vivienne hunt Referred [facility] Diagnoses H/O acute myocardial infarction Cardiomyopathy, unspecified type (HCC) Pre-op evaluation Procedures ECHO ECHO TTHRC R-T 2D W/WOM-MODE COMPL SPEC&COLR D Anila De Paz MD [address] [place] [address] [facility] [place] [address] [place] [address] Referral ID Status Reason Start Date Expiration Date Visits Requested Visits Authorized [id number] New Request Auto-Generat ed Referral 06/18/2024 06/18/2025 1 1 * Consult, Test, Treat (Routine) - Authorized Specialty Diagnoses / Procedures Referred By Vivienne hunt Referred To Contact Cardiology Diagnoses H/O acute myocardial infarction Cardiomyopathy, unspecified type (HCC) Pre-op evaluation Procedures CONSULT TO CARDIOLOGY OFFICE/OUTPATIENT NEW HIGH MDM 60 MINUTES Anila De Paz MD [address] [place] [id number] Referral ID Status Reason Start Date Expiration Date Visits Requested Visits Authorized [id number] Authorized PCP Requested Referral 06/18/2024 06/18/2025 1 1 * Consult, Test, Treat (Routine) - Authorized Specialty Diagnoses / Procedures Referred By Vivienne hunt Referred To Contact Internal Medicine Diagnoses Pre-op evaluation Encounter to establish care Procedures CONSULT TO INTERNAL MEDICINE OFFICE/OUTPATIENT [facility] 60 MINUTES Anila De Paz MD [address] [place], [place] [id number] Referral ID Status Reason Start Date Expiration Date Visits Requested Visits Authorized [id number] Authorized PCP Requested Referral 06/18/2024 06/18/2025 1 1 [facility] for referral (narrative)* Outpatient Procedure (Routine) - Closed Specialty Diagnoses / Procedures Referred By Vivienne hunt Referred To Contact [facility] Diagnoses Hiatal hernia Procedures EGD DIAGNOSTIC ESOPHAGOGASTRODUODENOSC OPY TRANSORAL DIAGNOSTIC Anila De Paz MD [address] [place], [place] [id number] [facility] [place] [address] [place] [address] Referral ID Status Reason Start Date Expiration Date V isits Requested Visits Authorized [id number] Closed Auto-Generate d Referral 06/18/2024 06/18/2025 1 1 [facility] for referral (narrative)* Outpatient Procedure (Routine) - Authorized Specialty Diagnoses / Procedures Referred By Vivienne hunt Referred [facility] Diagnoses Carotid bruit, unspecified laterality Procedures US CAROTID ARTERIES [facility] DUPLEX SCAN EXTRACRANIAL [place] [address] [place] [address] [facility] [place] [address] [place], [place] [id number] Referral ID Status Reason Start Date Expiration Date Visits Requested Visits Authorized [id number] Authorized Auto-Generat ed Referral 08/03/2025 1 1 * Outpatient Procedure (Routine) - New Request Specialty Diagnoses / Procedures Referred By Contac t Referred To [facility] Diagnoses H/O acute myocardial infarction Procedures ECG COMPLETE ECG ROUTINE ECG W/LEAST 12 LDS W/I&[place] [address] [place] [address] [facility] [place] [address] [place] [address] Referral ID Status Reason Start Date Expiration Date Visits Requested Visits Authorized [id number] New Request Auto-Generat ed Referral 4 08/03/2025 1 1 [facility] for referral (narrative)* Outpatient Procedure (Routine) - New Request Specialty Diagnoses / Procedures Referred By Contac t Referred To Contact [facility] Diagnoses Neuropathy Procedures EMG(NEURO/NI) NERVE CONDUCTION STUDIES 9-10 STUDIES Denice Jacobs PA-C [address] [place] [address] [facility] [place] [address] [place] [id number] Referral ID Status Reason Start Date Expiration Date Visits Requested Visits Authorized [id number] New Request Auto-Generat ed Referral 4 08/06/2025 1 1 [facility] for referral (narrative)* Outpatient Procedure (Routine) - New Request Specialty Diagnoses / Procedures Referred By Contac t Referred To Contact [facility] Diagnoses Dilated pancreatic duct Procedures EGD - THERAPEUTIC, EUS, OR TUBE INTERVENTIONS EDG US EXAM SURGICAL ALTER STOM DUODENUM/JEJUNUM Susan Srinivasan MD [address] [facility]. Desk [address] [place] [address] [facility] [place] [address] [place] [id number] Referral ID Status Reason Start Date Expiration Date Visits Requested Visits Authorized [id number] New Request Auto-Generat ed Referral 09/08/2024 09/08/2025 1 1 [facility] for referral (narrative)* Outpatient Procedure (Routine) - Closed Specialty Diagnoses / Procedures [facility] Referred To Contact [facility] Diagnoses Choledocholithiasis Procedures ERCP ERCP REMOVE CALCULI/DEBRIS BILIARY/PANCREAS DUCT Alisa Haile MD [address] [place] [address] [address] Referral ID Status Reason Start Date Expiration Date V isits Requested Visits Authorized [id number] Closed Auto-Generate d Referral 09/13/2024 09/13/2025 1 1 [facility] for referral (narrative)* Outpatient Procedure (Routine) - Closed Specialty Diagnoses / Procedures Referred By [facility] t Referred To Contact [facility] Diagnoses Choledocholithiasis Procedures ERCP ERCP REMOVE CALCULI/DEBRIS BILIARY/PANCREAS DUCT Alisa Haile MD [address] [place] [address] [address] Referral ID Status Reason Start Date Expiration Date V isits Requested Visits Authorized [id number] Closed Auto-Generate d Referral 09/13/2024 09/13/2025 1 1 * Outpatient Procedure (Routine) - Closed Specialty Diagnoses / Procedures Referred By [facility] Referred To Contact [facility] Diagnoses Dilated pancreatic duct Procedures EGD - THERAPEUTIC, EUS, OR TUBE INTERVENTIONS EDG US EXAM SURGICAL ALTER STOM DUODENUM/JEJUNUM Susan Srinivasan MD [address] [facility]. Desk [address] [place] [address] [address] Referral ID Status Reason Start Date Expiration Date V isits Requested Visits Authorized [id number] Closed Auto-Generate d Referral 09/08/2024 09/08/2025 1 1 [facility] for referral (narrative)No reason for referral information [facility] Work Phone: [facility] Narrative* Outpatient Procedure (Routine) - Closed Specialty Diagnoses / Procedures Referred By Contac t Referred To Contact [facility] Diagnoses Hiatal hernia Procedures EGD DIAGNOSTIC ESOPHAGOGASTRODUODENOSC OPY TRANSORAL DIAGNOSTIC Anila De Paz MD [address] [place] [address] [place] [address] Referral ID Status Reason Start Date Expiration Date V isits Requested Visits Authorized [id number] Closed Auto-Generate d Referral 06/18/2024 06/18/2025 1 1 [facility] for visit Narrative* Outpatient Procedure (Routine) - Closed Specialty Diagnoses / Procedures Referred By Contac t Referred To Contact [facility] Diagnoses Dilated pancreatic duct Procedures EGD - THERAPEUTIC, EUS, OR TUBE INTERVENTIONS EDG US EXAM SURGICAL ALTER STOM DUODENUM/JEJUNUM Susan Srinivasan MD 2048 [facility]. [address] [place] [id number] [place] [address] Referral ID Status Reason Start Date Expiration Date V isits Requested Visits Authorized [id number] Closed Auto-Generate d Referral 09/08/2024 09/08/2025 1 1 [facility] for visit Narrative* MRI/CT (Routine) - Closed Specialty Diagnoses / Procedures Referred By Contac t Referred To Contact CT IMAGING Diagnoses Nausea Procedures CT ABD/PEL W IVCON CT ABD & PELVIS W/CONTRAST Anila De Paz MD [address] [place], [place] [id number] Phone: tel: fax: CT IMAGING [place] [address] Referral ID Status Reason Start Date Expiration Date V isits Requested Visits Authorized [id number] Closed Auto-Generate d Referral 11/02/2024 12/02/2025 1 [...] Lightheadedness Overactive bladder Atherosclerotic heart disease of teller coronary artery without angina pectoris Essential hypertension [...] Lightheadedness Overactive bladder Atherosclerotic heart disease of teller coronary artery without angina pectoris Essential hypertension Presence of stent in coronary artery Hyperlipidemia Bronchiectasis Hypoxemia Abdominal wall hernia Essential hypertension Restless leg syndrome Seizure disorder Acute bronchitis Chief Complaint Adema in both legs, close to ankles 2 W FU SOB/SELF REF. 3 M FU 3 M FU NON-PRODUCTIVE COUGH Amb Documentation ABD WALL PAIN head injury xray [facility] ER FU CONGITIVE COMMUNICATION. RX HERE Reason for Visit Intermittent constip ation Leg edema, left Varicose veins of both legs with edema Debility Lightheadedness Overactive bladder Atherosclerotic heart disease of teller coronary artery without angina pectoris Essential hypertension Presence of stent in coronary artery Hyperlipidemia Bronchiectasis Hypoxemia Abdominal wall hernia Essential hypertension Restless leg syndrome Seizure disorder Acute bronchitis Right inguinal hernia Fall (on)(from) incline, subsequent encounter Visit for suture removal Chief Complaint SOB/SELF REF. 3 M FU 3 M FU NON-PRODUCTIVE COUGH Amb Documentation ABD WALL PAIN head injury xray [facility] ER FU CONGITIVE COMMUNICATION. RX HERE Primary osteoarthritis, left shoulder CONGITIVE COMMUNICATION. RX HERE Reason for Visit Atherosclerotic hear t disease of teller coronary artery without angina pectoris Essential hypertension Presence of stent in coronary artery Hyperlipidemia Bronchiectasis Hypoxemia Abdominal wall hernia Essential hypertension Restless leg syndrome Seizure disorder Acute bronchitis Right inguinal hernia Fall (on)(from) incline, subsequent encounter Visit for suture removal Chief Complaint SOB/SELF REF. 3 M FU 3 M FU NON-PRODUCTIVE COUGH Amb Documentation ABD WALL PAIN head injury xray [facility] ER FU CONGITIVE COMMUNICATION. RX HERE Primary osteoarthritis, left shoulder CONGITIVE COMMUNICATION. RX HERE POST FALL LAST NIGHT/LEFT ARM PAIN/HIT HEAD EORDERS Reason for Visit Atherosclerotic hear t disease of teller coronary artery without angina pectoris Essential hypertension [...] WALL PAIN head injury xray [facility] ER FU CONGITIVE COMMUNICATION. RX HERE [...] contusion Scalp contusion Atherosclerotic heart disease of teller coronary artery without angina pectoris Debility Essential [...] contusion Scalp contusion Atherosclerotic heart disease of teller coronary artery without angina pectoris Debility Essential [...] Restless leg syndrome Atherosclerotic heart disease of teller coronary artery without angina pectoris Essential hypertension [...] Restless leg syndrome Atherosclerotic heart disease of teller coronary artery without angina pectoris Essential hypertension Lightheadedness Hyperlipidemia Mass of upper inner quadrant of left breast Contusion of thoracic wall Lumbar contusion Atherosclerotic heart disease of teller coronary artery without angina pectoris Cancer Essential [...] for Visit Atherosclerotic hear t disease of teller coronary artery without angina pectoris Essential hypertension Lightheadedness Hyperlipidemia Mass of upper inner quadrant of left breast Contusion of thoracic wall Lumbar contusion Atherosclerotic heart disease of teller coronary artery without angina pectoris Cancer Essential [...] sting Bronchiectasis Hypoxemia Atherosclerotic heart disease of teller coronary artery without angina pectoris ALEXANDER (dyspnea on exertion) Hyperlipidemia Chief Complaint LUMP IN MIDDLE OF CH EST NUMEROUS BEE STINGS/TOP OF THIGH/RIGHT LEG RASH 3 M FU E ORDERS CONGITIVE COMM,BALANCE,WEAKNESS RX HERE 4 M FU Flu Shot DYSPNEA VISION LOSS Reason for Visit Sternal deformity Bee sting Bronchiectasis Hypoxemia Atherosclerotic heart disease of teller coronary artery without angina pectoris ALEXANDER (dyspnea on exertion) Hyperlipidemia Chief Complaint NUMEROUS BEE STINGS/ TOP OF THIGH/RIGHT LEG RASH 3 M FU E ORDERS CONGITIVE COMM,BALANCE,WEAKNESS RX HERE 4 M FU Flu Shot DYSPNEA VISION LOSS LEFT BREAST LUMP FOLLOW UP Reason for Visit Bee sting Bronchiectasis Hypoxemia Atherosclerotic heart disease of teller coronary artery without angina pectoris ALEXANDER (dyspnea on exertion) Hyperlipidemia Chief Complaint LEFT BREAST LUMP FOL LOW UP 6 M FU BACK BRACE RX HERE left hip issues 6 M FU EORDERS Reason for Visit Atherosclerotic hear t disease of teller coronary artery without angina pectoris Debility Essential [...] for Visit Atherosclerotic hear t disease of teller coronary artery without angina pectoris Debility Essential hypertension Falls frequently Hiatal hernia Hyperlipidemia Restless leg syndrome Right inguinal hernia Vascular dementia Difficulty swallowing Hiatal hernia Mass of upper inner quadrant of left breast Sternal deformity Osteoporosis Bronchiectasis Hypoxemia Atherosclerotic heart disease of teller coronary artery without angina pectoris Dizziness Hyperlipidemia Chief Complaint BACK BRACE RX HERE left hip issues 6 M FU EORDERS 6 M FU DIZZINESS Amb Documentation Reason for Visit Hiatal hernia Mass of upper inner quadrant of left breast Sternal deformity Osteoporosis Bronchiectasis Hypoxemia Atherosclerotic heart disease of teller coronary artery without angina pectoris Dizziness Hyperlipidemia Chief Complaint Admit Date RIGHT KNEE July 05, 2024 1:18pm Surgery Clearance July 07, 2024 11:42am OSTEOARTHRITIS OF RIGHT KNEE. RX HERE No vember 2023 1:30pm RIGHT KNEE July 12, 2024 3:46pm RIGHT KNEE July 19, 2024 3 :39pm Room 2 July 19, 2024 4 :00pm fall September 18, 2024 8 :36am F/U [facility] Discharge September 1:03pm SCREENING October 18, 2024 1:23 pm 6 M FU October 22, 2024 2:11 pm Reason for Visit Admit Date Osteoarthritis of right knee July 052023 1:18pm 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 July 07, [...] 3 :39pm Osteoarthritis of right knee July d2023 3:39pm Depression October 14, 2024 1:03pm Falls frequently October 14, 2024 1:03pm Hiatal hernia October 14, 2024 1:03pm History of cholecystectomy September 1:03pm History of repair of hiatal hernia Febru 2024 1:03pm Hypothyroidism October 14, 2024 1:03pm Seizure disorder October 14, 2024 1:03pm Difficulty swallowing October 14 1:03pm Kyphoscoliosis deformity of spine Februa ry 2024 1:03pm RSD (reflex sympathetic dystrophy) Febru [email or web address] 1:03pm Bronchiectasis October 22, 2024 2:11 pm Kyphoscoliosis deformity of spine October 22, 2024 2:11pm Chief Complaint Admit Date RIGHT KNEE July 19, 2024 3 :39pm Room 2 July 19, 2024 4 :00pm fall September 18, 2024 8 :36am F/U [facility] Discharge September 1:03pm SCREENING October 18, 2024 1:23 pm 6 M FU October 22, 2024 2:11 pm Reason for Visit Admit Date Left knee DJD July 19, 2024 3 :39pm Osteoarthritis of right knee July 2n d2023 3:39pm Depression October 14, 2024 1:03pm Falls frequently October 14, 2024 1:03pm Hiatal hernia October 14, 2024 1:03pm History of cholecystectomy September 1:03pm History of repair of hiatal hernia Febru [email or web address] 1:03pm Hypothyroidism October 14, 2024 1:03pm Seizure disorder October 14, 2024 1:03pm Difficulty swallowing October 14 1:03pm Kyphoscoliosis deformity of spine Februa 2024 1:03pm RSD (reflex sympathetic dystrophy) Febru [email or web address] 1:03pm Bronchiectasis October 22, 2024 2:11 pm Kyphoscoliosis deformity of spine October 22, 2024 2:11pm Chief Complaint Admit Date fall September 18, 2024 8 :36am F/U [facility] Discharge September 1:03pm SCREENING October 18, 2024 [...] 2024 2:11pm Chief Complaint Admit Date F/U [facility] Discharge September 1:03pm SCREENING October 18, 2024 1:23 pm 6 M FU October 22, 2024 2:11 pm BALANCE PROB,WEAKNESS,REPEATED FALLS/RX HERE February 01, 2025 1:30pm UPPER EXTREMITY February 03, 2025 4:05 am Chief Complaint Admit Date F/U [facility] Discharge September 1:03pm SCREENING October 18, 2024 1:23 pm 6 M FU October 22, 2024 2:11 pm BALANCE PROB,WEAKNESS,REPEATED FALLS/RX HERE February 01, 2025 1:30pm UPPER EXTREMITY February 03, 2025 4:05 am upper extremity February 06, 2025 10:4 0am RIGHT CLAVICLE FRACTURE February 06, 2025 10:59am Reason for Visit Admit Date Depression October 14, 2024 1:03pm Falls frequently October 14, 2024 1:03pm Hiatal hernia October 14, 2024 1:03pm History of cholecystectomy September 1:03pm History of repair of hiatal hernia Febru [email or web address] 1:03pm Hypothyroidism October 14, 2024 1:03pm Seizure disorder October 14, 2024 1:03pm Difficulty swallowing October 14 1:03pm Kyphoscoliosis deformity of spine Februa 2024 1:03pm RSD (reflex sympathetic dystrophy) Febru [email or web address] 1:03pm Bronchiectasis October 22, 2024 2:11 pm Kyphoscoliosis deformity of spine October 22, 2024 2:11pm Closed fracture of right clavicle January 172024 10:59am Family History Relationship Condition Age at Onset Recorded Date/T arun mother Cerebrovascular accident (CVA) Unknown father Myocardial infarction Unknown Relationship Condition Age at Onset Recorded Date/T arun mother Cerebrovascular accident (CVA) Unknown Arthritis Unknown father Myocardial infarction 40 Alcoholism Unknown Hypertension Unknown sister Anemia Unknown grandmother Disorder of intestine Unknown Osteoporosis Unknown Malignant neoplasm of ovary Unknown Advance Directives Advance Directive Response Recorded Date/ Time Name of Medical Power of Industrial Rehabilitation Consultant Delroy PURVIS hu sband September 01, 2021 6:35pm Name of Medical Power of Industrial Rehabilitation Consultant Delroy dinero September 02, 2021 8:44pm Name of Medical Power of Industrial Rehabilitation Consultant dl Douglas September 05, 2021 12:39pm Living Will Yes October 05 6:26pm Power of Industrial Rehabilitation Consultant Yes October 05, 2021 6:26pm Advance Directive Response Recorded Date/ Time Living Will Yes October 05 6:26pm Power of Industrial Rehabilitation Consultant Yes October 05, 2021 6:26pm Advance Directive Response Recorded Date/ Time Name of Medical Power of Industrial Rehabilitation Consultant ? February 15, 2022 9:51am Living Will Yes February 15, 2022 9 :51am Power of Industrial Rehabilitation Consultant Yes February 15, 2022 9:51am Advance Directive Response Recorded Date/ Time Name of Medical Power of Industrial Rehabilitation Consultant ? February 15, 2022 9:51am Name of Medical Power of Industrial Rehabilitation Consultant delroy jones e- March 15, 2022 7:44pm Living Will Yes March 15, 2022 7:44pm Power of Industrial Rehabilitation Consultant Yes March 15 7:44pm Advance Directive Response Recorded Date/ Time Name of Medical Power of Industrial Rehabilitation Consultant delroy jonese- March 15, 2022 6:44pm Name of Medical Power of Industrial Rehabilitation Consultant delroy -- July 13, 2022 12:23am Living Will Yes July 13, 022 12:23am Power of Industrial Rehabilitation Consultant Yes July 13, 2022 12:23am Advance Directive Response Recorded Date/ Time Name of Medical Power of Industrial Rehabilitation Consultant delroy --alvinban d July 13, 2022 12:23am Living Will Yes July 13, 022 12:23am Power of Industrial Rehabilitation Consultant Yes July 13, 2022 12:23am Advance Directive Response Recorded Date/ Time Name of Medical Power of Industrial Rehabilitation Consultant delroy --alvinban d July 13, 2022 12:23am Name of Medical Power of Industrial Rehabilitation Consultant ALVINBND October 16, 2022 6:43pm Living Will Yes October 16, 2022 6:43pm Power of Industrial Rehabilitation Consultant Yes October 16 6:43pm Advance Directive Response Recorded Date/ Time Name of Medical Power of Industrial Rehabilitation Consultant ALVINTANYAD October 16, 2022 7:43pm Living Will Yes October 16, 2022 7:43pm Power of Industrial Rehabilitation Consultant Yes October 16 7:43pm Advance Directive Response Recorded Date/ Time Living Will Yes January 20, 2023 8 :53am Power of Industrial Rehabilitation Consultant Yes January 20, 2023 8:53am Name of Medical Power of Industrial Rehabilitation Consultant ALVINTANYAD October 16, 2022 7:43pm Advance Directive Response Recorded Date/ Time Living Will Yes January 20, 2023 8 :53am Power of Industrial Rehabilitation Consultant Yes January 20, 2023 8:53am Advance Directive Response Recorded Date/ Time Living Will Yes March 24, 2023 11:37am Power of Industrial Rehabilitation Consultant Yes March 24 11:37am Advance Directive Response Recorded Date/ Time Living Will Yes May 15, 2023 2:11pm Power of Industrial Rehabilitation Consultant Yes April 2:11pm Advance Directive Response Recorded Date/ Time Living Will Yes May 15, 2023 1:11pm Power of Industrial Rehabilitation Consultant Yes April 1:11pm Documents on File Type Date Recorded 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 Advance Directive(s) 08/06/2024 2:46 PM Documents on File Type Date Recorded 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 Advance Directive(s) 08/06/2024 2:46 PM Advance Directive Response Recorded Date/ Time Living Will Yes March 16, 2024 9:39am Power of Industrial Rehabilitation Consultant Yes March 16 9:39am Living Will Yes June 07 8:50am Power of Industrial Rehabilitation Consultant Yes June 07, 2024 8:50am Living Will Yes September 18 10:27am Power of Industrial Rehabilitation Consultant Yes September 18, 2024 10:27am Name of Medical Power of Industrial Rehabilitation Consultant September 18, 2024 10:27am Advance Directive Response Recorded Date/ Time Living Will Yes March 16, 2024 9:39am Do you have a Healthcare Power of Industrial Rehabilitation Consultant? Yes March 16, 2024 9:39am Living Will Yes September 18 10:27am Do you have a Healthcare Power of Industrial Rehabilitation Consultant? Yes September 18, 2024 10:27am Name of Medical Power of Industrial Rehabilitation Consultant September 18, 2024 10:27am Advance Directive Response Recorded Date/ Time Living Will Yes March 16, 2024 9:39am Do you have a Healthcare Power of Industrial Rehabilitation Consultant? Yes March 16, 2024 9:39am Do you have a Healthcare Power of Industrial Rehabilitation Consultant? Yes February 03, 2025 4:07am Advance Directive Response Recorded Date/ Time Living Will Yes March 16, 2024 9:39am Do you have a Healthcare Power of Industrial Rehabilitation Consultant? Yes March 16, 2024 9:39am Do you have a Healthcare Power of Industrial Rehabilitation Consultant? No February 06, 2025 7:36am Do you have a Healthcare Power of Industrial Rehabilitation Consultant? Yes February 03, 2025 4:07am Reason for Referral Specialty Diagnoses / Procedures Referred By Contsada t Referred To Contact [facility] Diagnoses Dementia without behavioral disturbance, unspecified dementia type (HCC) Cognitive communication deficit Procedures CONSULT TO SPEECH THERAPY OFFICE/OUTPATIENT [facility] 60-74 MINUTES Laisha Lizarraga, WAVE SOLDER OFFBEARER.MANAGEMENT TECHNICIAN [address] [place] [id number] [facility] [place] [address] [place] [address] Referral ID Status Reason Start Date Expiration Date Visits Requested Visits Authorized [id number] Authorized Auto-Generat ed Referral 04/11/2022 04/11/2023 99 99 Specialty Diagnoses / Procedures Referred By Contac t Referred To Contact MR IMAGING Diagnoses 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MANAGEMENT TECHNICIAN [address] [place] [phone] Mr Imaging Referral ID Status Reason Start Date Expiration Date Visits Requested Visits Authorized [id number] Authorized Auto-Generat ed Referral 11/13/2022 12/13/2023 1 1 Specialty Diagnoses / Procedures Referred By Contac t Referred To Contact MR IMAGING Diagnoses Dementia 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) Procedures MRI 3D POST PROCESSING 3D RENDERING W/INTERP&POSTPROC DIFF WORK STATION Laisha Lizarraga, WAVE SOLDER OFFBEARER.MANAGEMENT TECHNICIAN [address] [place] [phone] Mr [facility] [place] [facility] Referral ID Status Reason Start Date Expiration Date V isits Requested Visits Authorized [id number] Closed Auto-Generate d Referral 11/13/2022 12/13/2023 1 1 Specialty Diagnoses / Procedures Referred By Contac t Referred To Contact MR IMAGING Diagnoses Dementia without behavioral disturbance (HCC) Procedures MRI BRAIN W QUANT WO IVCON MRI BRAIN BRAIN STEM W/O CONTRAST MATERIAL Laisha Lizarraga, ROSMERY.MANAGEMENT TECHNICIAN [address] [place] [phone] Mr Imaging [place] [address] Referral ID Status Reason Start Date Expiration Date V isits Requested Visits Authorized [id number] Closed Auto-Generate d Referral 11/13/2022 12/13/2023 1 1 Specialty Diagnoses / Procedures Referred By Contac t Referred To Contact General Surgery Diagnoses Hiatal hernia Gastroesophageal reflux disease, unspecified whether esophagitis present Procedures CONSULT TO GENERAL SURGERY OFFICE/OUTPATIENT [facility] 60 MINUTES Susan Squires MD [address] [address] Laisha Sheppard MD [address] [place] [address] Referral ID Status Reason Start Date Expiration Date Visits Requested Visits Authorized [id number] Authorized PCP Requested Referral 05/17/2024 05/17/2025 1 1 Specialty Diagnoses / Procedures Referred By Contac t Referred To Contact CT IMAGING Diagnoses Hiatal hernia Procedures CT CHEST W IVCON DIAGNOSTIC COMPUTED TOMOGRAPHY THORAX W/CONTRAST Anila De Paz MD [address] [place] [address] Ct Imaging [place] [address] Referral ID Status Reason Start Date Expiration Date Visits Requested Visits Authorized [id number] New Request Auto-Generat ed Referral 06/18/2024 07/18/2025 1 1 Specialty Diagnoses / Procedures Referred By Contac t Referred To Contact CT IMAGING Diagnoses Hiatal hernia Procedures CT ABD/PEL W IVCON CT ABD & PELVIS W/CONTRAST Anila De Paz MD [address] [place], [place] [id number] Ct Imaging [id number] Referral ID Status Reason Start Date Expiration Date Visits Requested Visits Authorized [id number] New Request Auto-Generat ed Referral 06/18/2024 07/18/2025 1 1 Specialty Diagnoses / Procedures Referred By Contac t Referred To Contact [facility] Diagnoses Hiatal hernia Procedures EGD DIAGNOSTIC ESOPHAGOGASTRODUODENOSC OPY TRANSORAL DIAGNOSTIC Anila De Paz MD [address] [place], [place] [id number] [facility] [place] [address] [place] [id number] Referral ID Status Reason Start Date Expiration Date Visits Requested Visits Authorized [id number] Authorized Auto-Generat ed Referral 06/18/2024 06/18/2025 1 1 Referral ID Status Reason Start Date Expiration Date V isits Requested Visits Authorized [id number] Closed Auto-Generate d Referral 06/18/2024 07/18/2025 1 1 Specialty Diagnoses / Procedures Referred By Contac t Referred To Contact Diagnoses 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, psychotic disturbance, mood disturbance, or anxiety (HCC) Procedures PROVIDER ORDERED FOLLOW UP OFFICE/OUTPATIENT [facility] MDM 60 MINUTES Laisha Lizarraga, ROSMERY.MANAGEMENT TECHNICIAN [address] [place] [address] Referral ID Status Reason Start Date Expiration Date Visits Requested Visits Authorized [id number] Authorized PCP Requested Referral 4 07/01/2025 1 1 Specialty Diagnoses / Procedures Referred By Contac t Referred To Contact Neurology Diagnoses Paresthesia of both feet Procedures CONSULT TO NEUROLOGY OFFICE/OUTPATIENT NEW [facility]IGH MDM 60 MINUTES Laisha Lizarraga, WAVE SOLDER OFFBEARER.MANAGEMENT TECHNICIAN [address] [place] [address] Referral ID Status Reason Start Date Expiration Date Visits Requested Visits Authorized [id number] Authorized PCP Requested Referral 4 07/01/2025 1 1 Specialty Diagnoses / Procedures Referred By Contac t Referred To Contact MR IMAGING Diagnoses Abnormal results of liver function studies Procedures MRI 3D POST PROCESSING 3D RENDERING W/INTERP&POSTPROC DIFF WORK STATION Anila De Paz MD [address] [place], [place] [id number] Mr Imaging [place] [address] Referral ID Status Reason Start Date Expiration Date Visits Requested Visits Authorized [id number] Authorized Auto-Generat ed Referral 09/03/2024 10/03/2025 1 1 Specialty Diagnoses / Procedures Referred By Contac t Referred To Contact MR IMAGING Diagnoses Abnormal results of liver function studies Procedures MRI PANC/MAGNOLIA WO/W IVCON MRI ABDOMEN W/O & W/CONTRAST MATERIAL Anila De Paz MD [address] [place], [place] [id number] Mr Imaging [place] [address] Referral ID Status Reason Start Date Expiration Date Visits Requested Visits Authorized [id number] Authorized Auto-Generat ed Referral 09/03/2024 10/03/2025 1 1 Specialty Diagnoses / Procedures Referred By Contac t Referred To Contact Diagnoses Hiatal hernia Epigastric pain Nausea and vomiting, unspecified vomiting type Pre-op exam Procedures REFER TO [facility] / [facility] - PREOPERATIVE OPTIMIZATION OFFICE/OUTPATIENT [facility] 60 MINUTES Anila De Paz MD [address] [place], [place] [id number] Referral ID Status Reason Start Date Expiration Date Visits Requested Visits Authorized [id number] Authorized PCP Requested Referral 09/03/2024 09/03/2025 1 1 Referral ID Status Reason Start Date Expiration Date V isits Requested Visits Authorized [id number] Closed Auto-Generate d Referral 09/03/2024 10/03/2025 1 1 Referral ID Status Reason Start Date Expiration Date V isits Requested Visits Authorized [id number] Closed Auto-Generate d Referral 09/03/2024 10/03/2025 1 [...] or prosecute any alcohol or drug abuse patient.[facility] the event this information is protected by [...] or prosecute any alcohol or drug abuse patient.[facility] the event this information is protected by [...] Diagnoses Fine motor impairment Procedures CONSULT TO [employer] DEALER OCCUPATIONAL THERAPY EVAL HIGH COMPLEX 60 MINS Laisha Lizarraga, ROSMERY.MANAGEMENT TECHNICIAN [address] [place] [address] Phone: tel: fax: [facility] [place] [address] Referral ID Status Reason Start Date Expiration Date Visits Requested Visits Authorized [id number] Authorized PCP Requested Referral Auto-Generate d Referral [...] BRAIN STEM W/O CONTRAST MATERIAL Laisha Lizarraga, ROSMERY.MANAGEMENT TECHNICIAN [address] [place] [address] Mr Imaging [id number] Referral ID Status Reason Start Date Expiration Date V isits Requested Visits Authorized [id number] Closed Auto-Generate d Referral 11/13/2022 12/13/2023 1 1 Reason Comments Consult Diaphragmatic Hernia Reason Onset Date Comments Refill Request 06/10/2024 Reason Comments Quality Control Tech - Other Chart prep Reason Comments Consult Specialty Diagnoses / Procedures Referred By Contac t Referred To Contact General Surgery Diagnoses Hiatal hernia Gastroesophageal reflux disease, unspecified whether esophagitis present Procedures CONSULT TO GENERAL SURGERY OFFICE/OUTPATIENT [facility] 60 MINUTES Susan Squires MD [address] [facility] [address] Laisha Sheppard MD [address] [place] [address] Referral ID Status Reason Start Date Expiration Date V isits Requested Visits Authorized [id number] Closed PCP Requested Referral 05/17/2024 05/17/2025 1 [address] Specialty Diagnoses / Procedures Referred By Contac t Referred To Contact CT IMAGING Diagnoses Hiatal hernia Procedures CT ABD/PEL W IVCON CT ABD & PELVIS W/CONTRAST Anila De Paz MD [address] [place] [address] Ct Imaging [place] [address] Referral ID Status Reason Start Date Expiration Date V isits Requested Visits Authorized [id number] Closed Auto-Generate d Referral 06/18/2024 07/18/2025 1 [...] evaluation Procedures CONSULT TO CARDIOLOGY OFFICE/OUTPATIENT [facility] 60 MINUTES Anila De Paz MD [address] [place], [place] [id number] Referral ID Status Reason Start Date Expiration Date V isits Requested Visits Authorized [id number] Closed PCP Requested Referral 06/18/2024 06/18/2025 1 1 Reason Comments Consult Paresthesia of both feet/ illegal writing Specialty Diagnoses / Procedures Referred By Contac t Referred To Contact Neurology Diagnoses Paresthesia of both feet Procedures CONSULT TO NEUROLOGY OFFICE/OUTPATIENT [facility] 60 MINUTES Laisha Lizarraga, ROSMERY.MANAGEMENT TECHNICIAN [address] [place] [id number] Referral ID Status Reason Start Date Expiration Date V isits Requested Visits Authorized [id number] Closed PCP Requested Referral 07/31/2024 07/01/2025 1 1 Reason Comments Patient Question Next Steps Reason Comments Follow Up ([facility]) Reason Comments 09/20/24 Reason Comments Pre-Op Teaching Reason Comments Preparations For Surgery Pre-op Aspirin instructions Specialty Diagnoses / Procedures Referred By Mauriac t Referred To Contact MR IMAGING Diagnoses Abnormal results of liver function studies Procedures MRI PANC/MAGNOLIA WO/W IVCON MRI ABDOMEN W/O & W/CONTRAST MATERIAL Anila De Paz MD [address] [place] [address] Mr Imaging [place] [address] Referral ID Status Reason Start Date Expiration Date V isits Requested Visits Authorized [id number] Closed Auto-Generate d Referral 09/03/2024 10/03/2025 1 1 Reason Comments Patient Update Reason Comments Quality Control Tech - Other Update on EUS o rders Reason Comments Preparations For Surgery PACC Reason Onset Date Comments EMG 09/10/2024 Specialty Diagnoses / Procedures Referred By Contac t Referred To Contact [facility] Diagnoses Neuropathy Procedures EMG(NEURO/NI) NERVE CONDUCTION STUDIES 9-10 STUDIES Denice Jacobs PA-C [address] [place] [address] Neurological [place] [address] [place] [address] Referral ID Status Reason Start Date Expiration Date V isits Requested Visits Authorized [id number] Closed Auto-Generate d Referral 08/06/2024 08/06/2025 1 1 Reason Comments Consult surgery 09/20/24 at ne in Reason Comments Post Op Reason Comments [...] Anila De Paz MD [address] [place] [address] Phone: tel: fax: [place] [address] Referral ID Status Reason Start Date Expiration Date V isits Requested Visits Authorized [id number] Closed Auto-Generate d Referral 11/02/2024 12/02/2025 1 1 Reason Onset Date Comments Refill Request 12/16/2024 Reason Comments Abrasion to right forearm x1 day Reason Comments Established Patient Reason Comments Follow Up Care Teams (unrecognized sec tion and content) Entry Level Finance Relationship Specialty Start Date End Date Bryant Melendrez MD [address] [place] [address] PCP - General Internal Medicine 11/20/20 Entry Level Finance Relationship Specialty Start Date End Date Bryant Melendrez MD [address] [place] [address] PCP - General Internal Medicine 11/20/20 Entry Level Finance Relationship Specialty Start Date End Date Chema Perry MD [address] [place] [address] PCP - General Internal Medicine 04/11/22 Team Status: Active Member Role Status Dates TIA WORLEY Family Provider Active Dr. Chema Perry MD Primary Care Provider Active Team Status: Inactive Member Role Status Dates Dr. Chema Perry MD Primary Care Provider, [facility] Provider Active Team Status: Inactive Member Role Status Dates Dr. Chema Perry MD Primary Care Provider, Referri ng Provider Active Sandra Vincent CRIMINAL INTELLIGENCE ANALYST, CRIMINAL INTELLIGENCE ANALYST-C Attending Provider Active Team Status: Inactive Member Role Status Dates Dr. Chema Perry MD Primary Care Provider, Referri ng Provider Active Dr. James Elizabeth MD Attending Provider Active Team Status: Inactive Member Role Status Dates Dr. Chema Perry MD Primary Care Provider, Referri ng Provider Active Phillip VALENCIA PA Attending Provider Active Team Status: Active [...] Care Provider, Referri ng Provider Active Jd VALENCIA PA Attending Provider Active Team Status: Inactive Member Role Status Dates Dr. Chema Perry MD Primary Care Provider Active Jd VALENCIA, PA Attending Provider, Referring Pr ovider Active Team Status: Inactive Member Role Status Dates Dr. Chema Perry MD Primary Care Provider Active Cal Keith MD Emergency Provider Active Entry Level Finance Relationship Specialty Start Date End Date Chema Perry MD [address] [facility] [place] [address] PCP - General Internal Medicine 04/11/22 Team [...] Dr. Isma Bustamante DO Emergency Provider Active Entry Level Finance Relationship Specialty Start Date End Date Chema Perry MD [address] [place] [address] PCP - General Internal Medicine 04/11/22 Team [...] MD Attending Provider, Referring P rochelle Active Entry Level Finance Relationship Specialty Start Date End Date Chema Perry MD [address] [place] [address] PCP - General Internal Medicine 04/11/22 Team Status: Inactive Member Role Status Dates Dr. Chema Perry MD Primary Care Provider Active Dr. Sarbjit Kraus MD Attending Provider, Referr ing Provider Active Entry Level Finance Relationship Specialty Start Date End Date Chema Perry MD [address] [place] [address] PCP - General Internal Medicine 04/11/22 Stephanie Brush [address] [facility] [place] [address] Referring Ophthalmology 07/23/23 Team Status: Active Member Role Status Dates Dr. Chema Perry MD Primary Care Provider Active Dr. Porfirio Bloom MD Attending Provider, Referring Provider Active Entry Level Finance Relationship Specialty Start Date End Date Chema Perry MD [address] [place] [address] PCP - General Internal Medicine 04/11/22 Stephanie Brush [address] [facility] [address] Referring Ophthalmology 07/23/23 Entry Level Finance Relationship Specialty Start Date End Date Chema Perry MD [address] [place] [address] PCP - General Internal Medicine 04/11/22 Stephanie Brush [address] [facility], [place] [address] Referring Ophthalmology 07/23/23 Team Status: Inactive Member Role Status Dates Dr. Chema Perry MD Primary Care Provider, Referri ng Provider Active Tamiko Ku CRIMINAL INTELLIGENCE ANALYST, CRIMINAL INTELLIGENCE ANALYST-C Attending Provider Active Team Status: Inactive Member [...] MD Primary Care Provider Active Tamiko Ku CRIMINAL INTELLIGENCE ANALYST, CRIMINAL INTELLIGENCE ANALYST-C Attending Provider Active Team Status: Inactive Member Role Status Dates Dr. Chema Perry MD Primary Care Provider Active Tamiko Ku CRIMINAL INTELLIGENCE ANALYST, CRIMINAL INTELLIGENCE ANALYST-C Attending Provider, Referring P rochelle Active Entry Level Finance Relationship Specialty Start Date End Date Chema Perry MD [address] [place] [address] PCP - General Internal Medicine 04/11/22 Stephanie Brush [address] [place] [address] Referring Ophthalmology 07/23/23 Entry Level Finance Relationship Specialty Start Date End Date Chema Perry MD [address] [place] [address] PCP - General Internal Medicine 04/11/22 Stephanie Brush [address] [facility], [place] [address]321 Referring Ophthalmology 07/23/23 Entry Level Finance Relationship Specialty Start Date End Date Chema Perry MD [address] [facility], [place] [address] PCP - General Internal Medicine 04/11/22 Stephanie Brush [address] [facility] [place], [place] [address] Referring Ophthalmology 07/23/23 Porfirio Carreon [address] [place] [phone] Referring Orthopedics 02/10/24 Entry Level Finance Relationship Specialty Start Date End Date Chema Perry MD [address] [place], [place] [address] PCP - General Internal Medicine 04/11/22 Stephanie Brush [address] [facility] [place] [address] Referring Ophthalmology 07/23/23 Porfirio Carreon [address] [place] [phone] Referring Orthopedics 02/10/24 Entry Level Finance Relationship Specialty Start Date End Date Chema Perry MD [address] [place] [address] PCP - General Internal Medicine 04/11/22 Stephanie Brush [address] [facility] [place], [place] [address] Referring Ophthalmology 07/23/23 Porfirio Carreon [address] [place] [phone] Referring Orthopedics 02/10/24 Entry Level Finance Relationship Specialty Start Date End Date Chema Perry MD [address] [place] [address] PCP - General Internal Medicine 04/11/22 Stephanie Brush MD [address] [facility] [place] [address] Referring Ophthalmology 07/23/23 Porfirio Carreon [address] [place] [phone] Referring Orthopedics 02/10/24 Entry Level Finance Relationship Specialty Start Date End Date Chema Perry MD [address] [place] [address] PCP - General Internal Medicine 04/11/22 Entry Level Finance Relationship Specialty Start Date End Date Chema Perry MD [address] [place], [place] [address] PCP - General Internal Medicine 04/11/22 Stephanie Brush MD [address] [facility], [place] [address] Referring Ophthalmology 07/23/23 Porfirio Carreon [address] [facility] [address] [place] [phone] Referring Orthopedics 02/10/24 Entry Level Finance Relationship Specialty Start Date End Date Chema Perry MD [address] [place], [place] [address] PCP - General Internal Medicine 04/11/22 Stephanie Brush MD [address] [facility], [place] [address]851 Referring Ophthalmology 07/23/23 Porfirio Carreon [address] [place] [phone] Referring Orthopedics 02/10/24 Entry Level Finance Relationship Specialty Start Date End Date Chema Perry MD [address] [place] [address] PCP - General Internal Medicine 04/11/22 Stephanie Brush MD [address] [facility] [place] [address] Referring Ophthalmology 07/23/23 Porfirio Carreon [address] [place] [phone] Referring Orthopedics 02/10/24 Entry Level Finance Relationship Specialty Start Date End Date Chema Perry MD [address] [place], [place] [address] PCP - General Internal Medicine 04/11/22 Stephanie Brush MD [address] [facility] [place] 8[address]41 Referring Ophthalmology 07/23/23 Porfirio Carreon [address] [place] [phone] Referring Orthopedics 02/10/24 Entry Level Finance Relationship Specialty Start Date End Date Chema Perry MD [address] [place], [place] [address] PCP - General Internal Medicine 04/11/22 Stephanie Brush MD [address] [facility] [place], [place] [address] Referring Ophthalmology 07/23/23 Porfirio Carreon [address] [place] [phone] Referring Orthopedics 02/10/24 Entry Level Finance Relationship Specialty Start Date End Date Chema Perry MD [address] [place], [place] [address] PCP - General Internal Medicine 04/11/22 Stephanie Brush MD [address] [facility] [place], [place] [address] Referring Ophthalmology 07/23/23 Porfirio Carreon [address] [place] [phone] Referring Orthopedics 02/10/24 Entry Level Finance Relationship Specialty Start Date End Date Chema Perry MD [address] [place] [address] PCP - General Internal Medicine 04/11/22 Stephanie Brush MD [address] [place] [address] Referring Ophthalmology 07/23/23 Porfirio Carreon [address] [place] [phone] Referring Orthopedics 02/10/24 Entry Level Finance Relationship Specialty Start Date End Date Chema Perry MD [address] [place] [address] PCP - General Internal Medicine 04/11/22 Stephanie Brush MD [address] [place] [address] Referring Ophthalmology 07/23/23 Porfirio Carreon [address] [place] [phone] Referring Orthopedics 02/10/24 Entry Level Finance Relationship Specialty Start Date End Date Chema Perry MD [address] [place] [address] PCP - General Internal Medicine 04/11/22 Stephanie Brush MD [address] [place] [address] Referring Ophthalmology 07/23/23 Porfirio Carreon [address] [place] [phone] Referring Orthopedics 02/10/24 Entry Level Finance Relationship Specialty Start Date End Date Chema Perry MD [address] [place] [address] PCP - General Internal Medicine 04/11/22 Stephanie Brush MD [address] [place] [address]81 Referring Ophthalmology 07/23/23 Porfirio Carreon [address] [place] [phone] Referring Orthopedics 02/10/24 Entry Level Finance Relationship Specialty Start Date End Date Chema Perry MD [address] [place] [address] PCP - General Internal Medicine 04/11/22 Stephanie Brush MD [address] [facility] [place] [address] Referring Ophthalmology 07/23/23 Porfirio Carreon [address] [place] [phone] Referring Orthopedics 02/10/24 Entry Level Finance Relationship Specialty Start Date End Date Chema Perry MD [address] [place] [address] PCP - General Internal Medicine 04/11/22 Stephanie Brush MD [address] [facility] [place], [place] [address]641 Referring Ophthalmology 07/23/23 Porfirio Carreon [address] [place] [phone] Referring Orthopedics 02/10/24 Entry Level Finance Relationship Specialty Start Date End Date Chema Perry MD [address] [place] [address] PCP - General Internal Medicine 04/11/22 Stephanie Brush MD [address] [facility] [place] [address] Referring Ophthalmology 07/23/23 Porfirio Carreon [address] [place] [phone] Referring Orthopedics 02/10/24 Entry Level Finance Relationship Specialty Start Date End Date Chema Perry MD [address] [place], [place] 4100[address] PCP - General Internal Medicine 04/11/22 Stephanie Brush MD [address] [place], [place] [address]48931 Referring Ophthalmology 07/23/23 Porfirio Carreon [address] [facility] 2 [place] [phone] Referring Orthopedics 02/10/24 [place] [address] [place] [address] [facility] [facility] 08/03/24 Entry Level Finance Relationship Specialty Start Date End Date Chema Perry MD [address] [place], [place] [address] PCP - General Internal Medicine 04/11/22 Stephanie Brush MD [address] [place] [address] Referring Ophthalmology 07/23/23 Porfirio Carreon [address] [phone] Referring Orthopedics 02/10/24 [place] [address] [place], [place] [phone] [employer] [facility] 08/03/24 Entry Level Finance Relationship Specialty Start Date End Date Chema Perry MD [address] [place] [address] PCP - General Internal Medicine 04/11/22 Stephanie Brush MD [address] [place] [address] Referring Ophthalmology 07/23/23 Porfirio Carreon [address] [place] [phone] Referring Orthopedics 02/10/24 [place] [address] [place] [address] [employer] [facility] 08/03/24 Entry Level Finance Relationship Specialty Start Date End Date Chema Perry MD [address] [place] [address] PCP - General Internal Medicine 04/11/22 Stephanie Brush MD [address] [place] [address] Referring Ophthalmology 07/23/23 Porfirio Carreon [address] [phone] Referring Orthopedics 02/10/24 [place] [address] [place], [place] [phone] [employer] [facility] 08/03/24 Entry Level Finance Relationship Specialty Start Date End Date Chema Perry MD [address] [place], [place] 369621 PCP - General Internal Medicine 04/11/22 Stephanie Brush MD [address] [place] [address] Referring Ophthalmology 07/23/23 Porfirio Carreon [address] [place] [phone] Referring Orthopedics 02/10/24 [place] [address] [place], [place] [phone] [employer] [facility] 08/03/24 Entry Level Finance Relationship Specialty Start Date End Date Chema Perry MD [address] [place] [address] PCP - General Internal Medicine 04/11/22 Stephanie Brush MD [address] [place] [address] Referring Ophthalmology 07/23/23 Porfirio Carreon [address] [phone] Referring Orthopedics 02/10/24 [place] [address] [place], [place] [phone] [employer] [facility] 08/03/24 Entry Level Finance Relationship Specialty Start Date End Date Chema Perry MD [address] [place] [address] PCP - General Internal Medicine 04/11/22 Stephanie Brush MD [address] [facility] [place] [address]11 Referring Ophthalmology 07/23/23 Porfirio Carreon [address] [facility] 2 [place] [phone] Referring Orthopedics 02/10/24 [place] [address] [place], [place] [phone] [employer] [facility] 08/03/24 Entry Level Finance Relationship Specialty Start Date End Date Chema Perry MD [address] [place] [address] PCP - General Internal Medicine 04/11/22 Stephanie Brush MD [address] [facility] [address] Referring Ophthalmology 07/23/23 Porfirio Carreon [address] [facility] 2 [place] [phone] Referring Orthopedics 02/10/24 [place] [address] [place] [address] [employer] [facility] 08/03/24 Entry Level Finance Relationship Specialty Start Date End Date Chema Perry MD [address] [place], [place] 198181 PCP - General Internal Medicine 04/11/22 Stephanie Brush MD [address] [place], [place] 649061 Referring Ophthalmology 07/23/23 Porfirio Carreon [address] [place] [phone] Referring Orthopedics 02/10/24 [place] [address] [place] [address] [employer] [facility] 08/03/24 Entry Level Finance Relationship Specialty Start Date End Date Chema Perry MD [address] [place] [address] PCP - General Internal Medicine 04/11/22 Stephanie Brush MD [address]19 [place] [address] Referring Ophthalmology 07/23/23 Porfirio Carreon [address] [place] [phone] Referring Orthopedics 02/10/24 [place] [address] [place] [address] [employer] [facility] 08/03/24 Entry Level Finance Relationship Specialty Start Date End Date Chema Perry MD [address] [place] [address] PCP - General Internal Medicine 04/11/22 Stephanie Brush MD [address]19 [place] [address] Referring Ophthalmology 07/23/23 Porfirio Carreon [address] [place] [phone] Referring Orthopedics 02/10/24 [place] [address] [place] [address] [employer] [facility] 08/03/24 Entry Level Finance Relationship Specialty Start Date End Date Chema Perry MD [address] [place] [address] PCP - General Internal Medicine 04/11/22 Stephanie Brush MD [address]19 [place] [address] Referring Ophthalmology 07/23/23 Porfirio Carreon [address] [phone] Referring Orthopedics 02/10/24 [place] [address] [place] [address] [employer] [facility] 08/03/24 Entry Level Finance Relationship Specialty Start Date End Date Chema Perry MD [address] [place] [address] PCP - General Internal Medicine 04/11/22 Stephanie Brush MD [address]19 [place] [address] Referring Ophthalmology 07/23/23 Porfirio Carreon [address] [place] [phone] Referring Orthopedics 02/10/24 [place] [address] [place] [address] [employer] [facility] 08/03/24 Entry Level Finance Relationship Specialty Start Date End Date Chema Perry MD [address] [place], [place] 685251 PCP - General Internal Medicine 04/11/22 Stephanie Brush MD [address] [place], [place] [address]951 Referring Ophthalmology 07/23/23 Porfirio Carreon [address] [place] [phone] Referring Orthopedics 02/10/24 [place] [address] [place] [address] [employer] [facility] 08/03/24 Entry Level Finance Relationship Specialty Start Date End Date Chema Perry MD [address] [place] [address] PCP - General Internal Medicine 04/11/22 Stephanie Brush MD [address]19 [place] [address] Referring Ophthalmology 07/23/23 Porfirio Carreon [address] [place] [phone] Referring Orthopedics 02/10/24 [place] [address] [place] [address] [employer] [facility] 08/03/24 Entry Level Finance Relationship Specialty Start Date End Date Chema Perry MD [address] [place], [place] 657551 PCP - General Internal Medicine 04/11/22 Stephanie Brush MD [address] [place], [place] [address]19041 Referring Ophthalmology 07/23/23 Porfirio Carreon [address] [place] [phone] Referring Orthopedics 02/10/24 [place] [address] [place] [address] [employer] [facility] 08/03/24 Entry Level Finance Relationship Specialty Start Date End Date Chema Perry MD [address] [place] [address] PCP - General Internal Medicine 04/11/22 Stephanie Brush MD [address] [place], [place] [address]681 Referring Ophthalmology 07/23/23 Porfirio Carreon [address] [place] [phone] Referring Orthopedics 02/10/24 [place] [address] [place] [address] [employer] [facility] 08/03/24 Entry Level Finance Relationship Specialty Start Date End Date Chema Perry MD [address] [place], [place] [id number] PCP - General Internal Medicine 04/11/22 Stephanie Brush MD [address] [place], [place] 809571 Referring Ophthalmology 07/23/23 Porfirio Carreno [address] [place] [phone] Referring Orthopedics 02/10/24 [place] [address] [place] [address] [employer] [facility] 08/03/24 Entry Level Finance Relationship Specialty Start Date End Date Chema Perry MD [address] [place] [address] PCP - General Internal Medicine 04/11/22 Stephanie Brush MD [address] [place], [place] [phone] Referring Ophthalmology 07/23/23 Porfirio Carreon [address] [place] [phone] Referring Orthopedics 02/10/24 [place] [address] [place] [address] [employer] [facility] 08/03/24 Entry Level Finance Relationship Specialty Start Date End Date Chema Perry MD [address] [place] [address] PCP - General Internal Medicine 04/11/22 Stephanie Brush MD [address] [place], [place] 435371 Referring Ophthalmology 07/23/23 Porfirio Carreon [address] [phone] Referring Orthopedics 02/10/24 [place] [address] [place] [address] [employer] [facility] 08/03/24 Entry Level Finance Relationship Specialty Start Date End Date Chema Perry MD [address] [place] [address] PCP - General Internal Medicine 04/11/22 Stephanie Brush MD [address] [place] [address] Referring Ophthalmology 07/23/23 Porfirio Carreon [address] [phone] Referring Orthopedics 02/10/24 [place] [address] [place], [place] [phone] [employer] [facility] 08/03/24 Entry Level Finance Relationship Specialty Start Date End Date Chema Perry MD [address] [place], [place] 656091 PCP - General Internal Medicine 04/11/22 Stephanie Brush MD [address] [place], [place] 030561 Referring Ophthalmology 07/23/23 Porfirio Carreon [address] [place] [phone] Referring Orthopedics 02/10/24 [place] [address] [place] [address] [employer] [facility] 08/03/24 Entry Level Finance Relationship Specialty Start Date End Date Chema Perry MD [address] [place], [place] 462531 PCP - General Internal Medicine 04/11/22 10/17/24 Chema Perry MD [address] [facility] [address] [place], [place] 933271 PCP - General Internal Medicine 10/18/24 Stephanie Brush MD [address] [facility] [place] 863771 Referring Ophthalmology 07/23/23 Porfirio Carreon DO [address] [place] [phone] Referring Orthopedics 02/10/24 [place] [address] [place], [place] [phone] [employer] 08/03/24 Entry Level Finance Relationship Specialty Start Date End Date Chema Perry MD [address] [facility] [address] [place], [place] 2[address]31 PCP - General Internal Medicine 10/18/24 Stephanie Brush MD [address] [place], [place] 771051 Referring Ophthalmology 07/23/23 Porfirio Carreon DO [address] [facility] 2 [place] [phone] Referring Orthopedics 02/10/24 [place] [address] [place] [address] [employer] [facility] 08/03/24 Entry Level Finance Relationship Specialty Start Date End Date Chema Perry MD [address] [facility] [address] [place], [place] 132851 PCP - General Internal Medicine 10/18/24 Stephanie Brush MD [address] [place], [place] 054331 Referring Ophthalmology 07/23/23 Porfirio Carreon DO [address] [facility] 2 [place] [phone] Referring Orthopedics 02/10/24 [place] [address] [place] [address] [employer] [facility] 08/03/24 Entry Level Finance Relationship Specialty Start Date End Date Chema Perry MD [address] [facility] [address] [place] [address] PCP - General Internal Medicine 10/18/24 Stephanie Brush MD [address] [place], [place] 615561 Referring Ophthalmology 07/23/23 Porfirio Carreon DO [address] [phone] Referring Orthopedics 02/10/24 [place] [address] [place] [address] [employer] [facility] 08/03/24 Entry Level Finance Relationship Specialty Start Date End Date Chema Perry MD [address] 325051 PCP - General Internal Medicine 10/18/24 Stephanie Brush MD [address] [place] [address] Referring Ophthalmology 07/23/23 Porfirio Carreon DO [address] [phone] Referring Orthopedics 02/10/24 [place] [address] [place] [address] [employer] [facility] 08/03/24 Entry Level Finance Relationship Specialty Start Date End Date Chema Perry MD [address] [facility] [address] [place] [address] PCP - General Internal Medicine 10/18/24 Stephanie Brush MD [address] [place] [address] Referring Ophthalmology 07/23/23 Porfirio Carreon DO [address] [facility] 2 [place] [phone] Referring Orthopedics 02/10/24 [place] [address] [place] [address] [employer] [facility] 08/03/24 Entry Level Finance Relationship Specialty Start Date End Date Chema Perry MD [address] [facility] [address] [place] [address] PCP - General Internal Medicine 10/18/24 Stephanie Brush MD [address] [place] [address] Referring Ophthalmology 07/23/23 Porfirio Carreon DO [address] [facility] [place] [phone] Referring Orthopedics 02/10/24 [place] [address] [place] [address] [employer] [facility] 08/03/24 Entry Level Finance Relationship Specialty Start Date End Date Chema Perry MD [address] [facility] [address] [place] [address] PCP - General Internal Medicine 10/18/24 Stephanie Brush MD [address] [place] [address] Referring Ophthalmology 07/23/23 Porfirio Carreon DO [address] [facility] 2 [place] [phone] Referring Orthopedics 02/10/24 [place] [address] [place] [address] [employer] [facility] 08/03/24 Entry Level Finance Relationship Specialty Start Date End Date Chema Perry MD [address] [address] PCP - General Internal Medicine 10/18/24 Stephanie Brush MD [address] [place] [address] Referring Ophthalmology 07/23/23 Porfirio Carreon DO [facility] [facility] [place] [phone] Referring Orthopedics 02/10/24 [place] [address] [place] [address] [employer] [facility] 08/03/24 Entry Level Finance Relationship Specialty Start Date End Date Chema Perry MD [address] [facility] [address] [place], [place] 843841 PCP - General Internal Medicine 10/18/24 Stephanie Brush MD [address] [place], [place] 539661 Referring Ophthalmology 07/23/23 Porfirio Carreon DO [address] [facility] 2 [place] [phone] Referring Orthopedics 02/10/24 [place] [address] [place], [place] [phone] [employer] [facility] 08/03/24 Entry Level Finance Relationship Specialty Start Date End Date Chema Perry MD [address] [id number] PCP - General Internal Medicine 10/18/24 Stephanie Brush MD [address] [place], [place] 724571 Referring Ophthalmology 07/23/23 Porfirio Carreon DO [address] [facility] 2 [place] [phone] Referring Orthopedics 02/10/24 [place] [address] [place], [place] [phone] [employer] [facility] 08/03/24 Entry Level Finance Relationship Specialty Start Date End Date Chema Perry MD [address] [facility] [address] [place] [address] PCP - General Internal Medicine 10/18/24 Stephanie Brush MD [address] [place] [address] Referring Ophthalmology 07/23/23 Porfirio Carreon DO [address] [facility] 2 [place] [phone] Referring Orthopedics 02/10/24 [place] [address] [place], [place] 7781836 [employer] [facility] 08/03/24 Entry Level Finance Relationship Specialty Start Date End Date Chema Perry MD [address] [facility] [address] [place] [address] PCP - General Internal Medicine 10/18/24 Stephanie Brush MD [address] [place], [place] 803231 Referring Ophthalmology 07/23/23 Porfirio Carreon DO [address] [facility] 2 [place] [phone] Referring Orthopedics 02/10/24 [place] [address] [place], [place] [phone] [employer] [facility] 08/03/24 Team Status: Active Member Role [...] Inactive Member Role Status Dates Dr. Christopher uTrk DO Attending Provider Active Start: July 19, [...] 2024 End: October 22, 2024 Sandra Vincent CRIMINAL INTELLIGENCE ANALYST, CRIMINAL INTELLIGENCE ANALYST-C Attending Provider Active Start: October 22, 2024 [...] November 09, 2024 End: November 09, 2024 Entry Level Finance Relationship Specialty Start Date End Date Chema Perry MD [address] [facility] [address] [place] [address] PCP - General Internal Medicine 10/18/24 Stephanie Brush MD [address] [place] [address] Referring Ophthalmology 07/23/23 Porfirio Carreon DO [address] [facility] 2 [place] [phone] Referring Orthopedics 02/10/24 [place] [address] [place] [address] [employer] [facility] 08/03/24 Entry Level Finance Relationship Specialty Start Date End Date Chema Perry MD [address] [facility] [address] [place] [address] PCP - General Internal Medicine 10/18/24 Stephanie Brush MD [address] [place] [address] Referring Ophthalmology 07/23/23 Porfirio Carreon DO [address] [facility] 2 [place] [phone] Referring Orthopedics 02/10/24 [place] [address] [place] [address] [employer] [facility] 08/03/24 Entry Level Finance Relationship Specialty Start Date End Date Chema Perry MD [address] [facility] [address] [place] [address] PCP - General Internal Medicine 10/18/24 Stephanie Brush MD [address] [place] [address] Referring Ophthalmology 07/23/23 Porfirio Carreon DO [address] [facility] 2 [place] [phone] Referring Orthopedics 02/10/24 [place] [address] [place] [address] [employer] [facility] 08/03/24 Entry Level Finance Relationship Specialty Start Date End Date Chema Perry MD [address] [place] [address] PCP - General Internal Medicine 10/18/24 Stephanie Brush MD [address] [place], [place] [address] Referring Ophthalmology 07/23/23 Porfirio Carreon DO [address] [place] [phone] Referring Orthopedics 02/10/24 [place] [address] [place], [place] [phone] [employer] [facility] 08/03/24 Team Status: Active Member Role [...] February 03, 2025 End: February 03, 2025 Team Status: Active Member Role Status Dates Dr. Chema Perry MD Primary Care Provider Active Start: February 06, 2025 Dr. Kana Whitt DO Emergency Provider Active Start: February 06, 2025 Damien Burleson MD Attending Provider Active St art: February 06, 2025 Team Status: Active Member Role Status Dates Dr. Chema Perry MD Primary Care Provider Active Start: February 06, 2025 Dr. Kana Whitt DO Emergency Provider Active Start: February 06, 2025 Dr. Vincent Camp DO Admit Provider Active Star t: February 06, 2025 Dr. Vincent Camp , DO Attending Provider Active Start: February 06, 2025 Goals (unrecognized section and content) Goals [...] section and content) DATE CREATED AUTHOR 11/01/2024 [facility] DATE CREATED AUTHOR AUTHOR'S ORGANIZ ATION 12/01/2024 [facility] DATE CREATED AUTHOR AUTHOR'S ORGANIZ ATION 01/30/2025 [facility] DATE CREATED AUTHOR AUTHOR'S ORGANIZ ATION 02/04/2025 [facility] FOR RECORDS PERTAINING TO PATIENTS WHO [...] BE BASED ON THE PRIMARY CLINICAL RECORDS. [facility] provides no warranty or guarantee of the accuracy or completeness of information in this document.
[2025-02-06 12:25] VITALS: BP 127/66; PULSE 70; RESP 18; TEMP 36.8; O2SAT 97
[2025-02-06] MEDS: HYDROmorphone 2 MG TABLET PO ×2 (12:52→22:32)
--- NOTE | 2025-02-06 15:29 | HP.PCM.HOS_ITS ---
HPI - General General Date of Admission: 02/06/25 Date of Service: 02/06/25 Chief Complaint: uncontrolled pain. HPI Narrative SHELDON ALAN, is a 84 F who presents with pain due to recent right clavicular fracture. Patient was seen in the emergency room on the after she had fallen. Patient was doing something and was trying to just herself holding onto the back of a chair that chair collapsed and then she fell. She had a markedly angulated displaced right clavicular fracture. She was referred to Dr. Quintanilla and saw him in the office and then was referred to [facility] for further evaluation. She had an appointment for this coming Friday. But since being at home she has not done well. Patient previous to this injury was using a walker but is just been more debilitated and her pain has been poorly controlled. She was discharged with hydromorphone as well as Valium. But since being on the Valium she has been more somnolent and dozing off. She presented back to the emergency room and visit was no change in her fracture but given inability to adequately care for herself and has been unable to ride her for her needs, the hospital service was contacted for admission. [facility] Medical History Leg edema Open wound of right lower extremity Contusion of right foot Kyphoscoliosis deformity of spine Bee sting Lumbar contusion Contusion of thoracic wall Pain of left lower extremity Contact with and (suspected) exposure to other viral communicable diseases Contusion of left wrist Left elbow contusion Contusion of left shoulder Scalp contusion Injury of left elbow Injury of left shoulder Presence of stent in coronary artery (~1989) Atherosclerotic heart disease of [place] coronary artery without angina pectoris Essential hypertension Influenza A Health care maintenance Falls frequently Cancer Depression Dementia Walker as ambulation aid Arthritis Bladder disease Low iron DVT (deep venous thrombosis) High cholesterol Restless legs Back pain TIA (transient ischemic attack) Seizures Difficulty swallowing Gastric reflux Non-smoker Asthma Shortness of breath on exertion Hx of echocardiogram History of stress test Hypertension Cardiology follow-up encounter History of heart attack Hypertension aquired autoimmune encephalopathy h/o back surgery Heart disease Dementia Partial complex seizures Home Medications ?Medication ?Instructions ?Recorded ?Last Taken ?Type L.acidophil-L.casei-B.bifid-B.longum-FOS 1 cap PO RAPHAEL Y Supplement 09/02/21 02/05/25 History 2 billion cell-50 mg capsule (Probiotic Blend) aspirin 81 mg tablet,delayed 81 mg PO DAILY 01/10/22 0 02/05/25 History release (Adult Aspirin Regimen) d-mannose 500 mg capsule 500 mg PO DAILY 06/07/22 History famotidine 10 mg tablet 10 mg PO BID 06/07/22 History multivitamin 1 tab PO DAILY 06/07/22/09/11 History mirabegron 50 mg tablet,extended 50 mg PO QHS Check wi th primary 01/29/23 02/05/25 History release 24 hr (Myrbetriq) doctor albuterol sulfate 2.5 mg/3 mL 2.5 mg (3 mL) inhalation Q6H PRN 04/07/23 Unknown Rx (0.083 %) solution for nebulization Sob &/Or Wheezing #180 mL syringes BD ECLIPSE 04/11/23 Unknown History latanoprost 0.005 % eye drops 1 drp ophthalmic (eye) D AILY 08/13/23 02/05/25 History (Xalatan) nitroglycerin 0.4 mg sublingual 0.4 mg sublingual Q5-1 5M PRN chest 11/12/23 Unknown Rx tablet pain #25 tabs BD Sry/needle eclips See Rx Instructions IM .COMP SANDRA 02/23/24 Unknown Rx #12 ea azelastine 137 mcg (0.1 %) nasal 2 spray intranasal BI D 03/16/24 Unknown History spray cetirizine 10 mg capsule (Zyrtec) 10 mg PO DAILY PRN a llergy symptoms 03/16/24 Unknown History fluticasone propionate 50 1 spray intranasal DAILY 02/05/25 History mcg/actuation nasal spray,suspension (Allergy Relief (fluticasone)) PEP device #1 ea 04/06/24 Unknown Rx apixaban 5 mg tablet (Eliquis) 5 mg PO BID #180 tabs 1 02/05/25 Rx atorvastatin 40 mg tablet See Rx Instructions .Route 1 02/05/25 Rx .COMPLEX #90 tabs levothyroxine 50 mcg tablet 50 mcg PO DAILY Thyroid #9 0 tabs 06/08/24 02/05/25 Rx memantine 10 mg tablet 10 mg PO BID Alzheimer's #18 0 tabs 06/08/24 02/05/25 Rx pramipexole 0.5 mg tablet 0.5 mg PO BID #180 tabs 05/1902/05/25 Rx vortioxetine 20 mg tablet 20 mg PO DAILY DEPRESSION #9 0 tabs 06/08/24 02/05/25 Rx (Trintellix) brimonidine 0.2 % eye drops 1 drp ophthalmic (eye) QHS 10/14/24 02/05/25 History olopatadine 0.6 % nasal spray 2 spray intranasal DAILY 10/14/24 Unknown History pantoprazole 40 mg tablet,delayed 40 mg PO DAILY 10/1402/05/25 History release potassium chloride 20 mEq 20 meq PO DAILY 10/14/24 History tablet,extended release(part/cryst) (Klor-Con M) furosemide 20 mg tablet 10 mg (1/2 x 20 mg) PO DAILY PRN 11/23/24 Unknown Rx edema #30 tabs lacosamide 100 mg tablet (Vimpat) 100 mg PO BID #180 t abs 12/20/24 02/05/25 Rx cyanocobalamin (vitamin B-12) 1,000 mcg IM QMONTH #10 mL 01/24/25 Unknown Rx 1,000 mcg/mL injection solution denosumab 60 mg/mL subcutaneous 60 mg subcut M2LVYRAG #1 mL 01/24/25 Unknown Rx syringe (Prolia) diazepam 2 mg tablet (Valium) 2 mg PO TID PRN Muscle p ain/spasm 02/03/25 02/05/25 Rx 5 days #15 tabs gabapentin 100 mg capsule 300 mg PO QHS restless leg(s ) 02/03/25 02/05/25 History hydromorphone 2 mg tablet 2 mg PO Q6H PRN pain 5 days #20 02/03/25 02/06/25 Rx (Dilaudid) tabs donepezil 10 mg tablet 10 mg PO DAILY 02/06/2501/17 History Allergy/AdvReac Type Severity Reaction Status Date / Time doxycycline Allergy Mild Vomiting Verified 02/06/25 07:30 acetaminophen (From Allergy Other Verified 02/06/25 07:30 Darvocet-N) lamotrigine (From Lamictal) Allergy Lip Verified 02/06/25 07:30 Swelling moxifloxacin HCl (From Allergy Other Verified 02/06/25 07:30 Avelox) propoxyphene napsylate (From Allergy Other Verified 02/06/25 07:30 Darvocet-N) hydrocodone AdvReac Severe Confusion Verified 02/06/25 07:30 oxycodone (From Percocet) AdvReac Severe Confusion Verified 02/06/25 07:30 zolpidem tartrate (From AdvReac Other Verified 02/06/25 07:30 Ambien) Family History Mother CVA (cerebral vascular accident) Arthritis Father Myocardial infarction, Onset Age: 40 Alcoholism Hypertension Sister Anemia Grandmother Bowel disease Osteoporosis Ovarian cancer Surgical History History of repair of hiatal hernia History of cholecystectomy History of hernia surgery Presence of coronary angioplasty implant and graft (~1989) History of hammer toe correction History of lumbar laminectomy History of carpal tunnel release History of tonsillectomy and adenoidectomy History of lumpectomy of left breast History of cardiac catheterization History of esophagogastroduodenoscopy (EGD) Hx of colonoscopy Hx of ventral hernia repair Hx of cataract extraction History of laryngoscopy History of appendectomy H/O kyphoplasty Social History household members: spouse housing: house Smoking Status: Never smoker alcohol intake: current alcohol intake frequency: a few times a week Alcohol type: wine substance use type: does not use caffeine: Yes Type: coffee Number of servings: 1 what type of physical activity do you participate in: other details: PT 3x weekly frequency: 3-4 times per week do you feel safe at home: Yes ROS ROS Narrative All review of systems were negative except as mentioned above in the history of present illness and the other review of systems. Vital Signs Vital Signs Vital Signs: 02/06/25 07:30 02/06/25 10:58 02/06/25 12:25 Temperature 37.0 C 37.1 C 36.8 C Temperature Source Oral Oral Pulse Rate 74 71 70 Respiratory Rate 18 18 18 Respiratory Effort Respiratory Depth Respiratory Pattern Blood Pressure 119/80 110/76 127/66 H Blood Pressure Mean 93 87 86 Blood Pressure Source Monitor Blood Pressure Position Semi-Fowlers Blood Pressure Location Left Arm Pulse Ox 98 99 97 Oxygen Delivery Method Room Air Nasal Cannula Oxygen Flow Rate (L/min) 2 02/06/25 14:53 Temperature Temperature Source Pulse Rate Respiratory Rate Respiratory Effort Non-Labored Respiratory Depth Normal Respiratory Pattern Normal Blood Pressure Blood Pressure Mean Blood Pressure Source Blood Pressure Position Blood Pressure Location Pulse Ox Oxygen Delivery Method Nasal Cannula Oxygen Flow Rate (L/min) 2 Weight Weight: 49.8 kg Body Mass Index (BMI) 25.4 Physical Exam Const alert Constitutional Narrative: Initially was dozing off during the encounter. Afebrile. Kyphotic. HEENT normocephalic and head/scalp atraumatic Resp normal respiratory effort and no retractions Cardio regular rate, regular rhythm, S1 normal heart sound and S2 normal heart sound GI normal to inspection, nondistended, normoactive bowel sounds, soft to palpation, non-tender and non-distended Extremity Extremity Narrative: Tenting of the skin over the right clavicle. Skin Skin Narrative: Ecchymosis over the right anterior shoulder. Results Lab / Micro Data 02/06/25 08:22 02/06/25 08:22 Labs: Laboratory Results - last 24 hr 02/06/25 08:22: WBC 4.8, RBC 3.23 L, Hgb 9.2 L, Hct 29.5 L, MCV 91.3, MCH 28.5, MCHC 31.2 L, RDW Std Deviation 43.9, RDW Coeff of Jorge 13.3, Plt Count 143 L, MPV 10.4, Sodium 137, Potassium 4.0, Chloride 101, Carbon Dioxide 27.4, Anion Gap 9, BUN 16, Creatinine 0.88, Estim Creat Clear Calc 35.40 L, Est GFR (MDRD) Non-Af 66, BUN/Creatinine Ratio 18.3, Glucose 107 H, Calcium 8.7, Total Bilirubin 0.54, AST 24, ALT 14, Alkaline Phosphatase 98, Total Protein 6.2, Albumin 3.3 L, Globulin 2.8, Albumin/Globulin Ratio 1.2 Imaging Radiology Impression Clavicle X-Ray 02/06/25 07:53 IMPRESSION: No obvious change in the known acute, displaced right distal clavicular fracture. Reading Location: [facility] Humerus X-Ray 02/06/25 07:53 IMPRESSION: NO ACUTE FRACTURE OR DISLOCATION. Reading Location: [facility] Assessment & Plan Assessment/Plan (1) Debility: PLAN: Patient with marginal performance status is that she is using a walker before this. Now more limited given the clavicular fracture. PT OT evaluate and treat. I do anticipate patient requiring additional needs such as with [place]. (2) Closed fracture of right clavicle: PLAN: Subsequent visit Pain control. Will try to utilize nonnarcotics as much as possible. Unfortunately unable to use NSAIDs as patient is already on apixaban and aspirin. Scheduled acetaminophen, Lidoderm patch. As needed hydromorphone oral. Ice as needed. Seen by Dr. Burleson of orthopedics and recommendations at this point time is nonoperative care. He will revisit to discuss potential other options at a later point. Check a 25-hydroxy vitamin D level PLAN: Plan Chronic conditions * DVT: Continue with apixaban * CAD: Continue with aspirin, atorvastatin * Hypothyroidism: Continue levothyroxine * Glaucoma: Continue latanoprost VTE prophylaxis: Not indicated as patient is already anticoagulated. CODE STATUS: Addressed with the patient. Patient wishes to be full code. Case discussed with the patient's and sister at bedside. Charges/Coding Visit Charges Inpatient E&M: 57140 Init Hosp L2
[2025-02-06] MEDS: Lidocaine 5% Patch 1 PATCH TOPICAL (15:46)
[2025-02-06 16:23] VITALS: BP 100/52; PULSE 62; RESP 16; TEMP 36.6; O2SAT 96
[2025-02-06 17:11] LABS: Vitamin D,25 Hydroxy 24.5 ng/mL (30-100)
[2025-02-06] MEDS: Lacosamide 100 MG Tablet PO (22:32)
[2025-02-06] MEDS: APIXABAN 5 MG TABLET PO (22:33)
[2025-02-06] MEDS: Gabapentin 300 MG Capsule PO (22:33)
[2025-02-06] MEDS: BRIMONIDINE 0.2% 5ML BOTTLE 1 DRP OPHTHALMIC (22:33)
[2025-02-06] MEDS: Famotidine 20 MG Tablet 10 MG PO (22:34)
[2025-02-06] MEDS: Memantine Hydrochloride 10 MG Tablet PO (22:35)
[2025-02-06] MEDS: Azelastine HCl NASAL.SRY 2 SPRAY NASAL (22:36)
[2025-02-06] MEDS: Pramipexole Di-HCl 0.5 MG Tablet PO (22:39)
[2025-02-06] MEDS: Atorvastatin Calcium 40 MG Tablet PO (22:39)
[2025-02-06 22:47] VITALS: BP 158/75; PULSE 71; RESP 16; TEMP 36.9; O2SAT 98
[2025-02-06 22:52] VITALS: O2SAT 98
[2025-02-07 05:03] VITALS: BP 127/55; PULSE 76; RESP 16; TEMP 36.9; O2SAT 95
[2025-02-07] MEDS: HYDROmorphone 2 MG TABLET PO ×3 (05:06→21:46)
--- NOTE | 2025-02-07 07:39 | PN.HOSP_ITS ---
Reason for Visit Reason for Visit: Diagnoses Other malaise (02/06/25) Fracture of unspecified part of right clavicle, initial encounter for closed fracture (02/06/25) Subjective Subjective Pain better. Objective Data Objective Data Vital Signs: Vital Signs Temp Pulse Resp BP Pulse Ox O2 Del Method O2 Flow Rate 36.9 C 76 16 127/55 H 95 Nasal Cannula 2 02/07/25 05:03 02/07/25 05:03 02/07/25 05:03 02/07/25 05:03 02/07/25 05:03 02/07/25 05:03 02/07/25 05:03 Oxygen Flow Rate (L/min) 2 Oxygen Delivery Method Nasal Cannula Weight: 49.8 kg Body Mass Index (BMI) 25.4 Intake & Output: Intake and Output for Last 24 Hours 02/05/25 02/06/25 02/07/25 23:59 23:59 23:59 Intake Total 700 / 700 200 / 200 Balance 700 / 700 200 / 200 Lab / Micro Data 02/06/25 08:22 02/06/25 08:22 Labs: Laboratory Results - last 24 hr 02/06/25 08:22: WBC 4.8, RBC 3.23 L, Hgb 9.2 L, Hct 29.5 L, MCV 91.3, MCH 28.5, MCHC 31.2 L, RDW Std Deviation 43.9, RDW Coeff of Jorge 13.3, Plt Count 143 L, MPV 10.4, Sodium 137, Potassium 4.0, Chloride 101, Carbon Dioxide 27.4, Anion Gap 9, BUN 16, Creatinine 0.88, Estim Creat Clear Calc 35.40 L, Est GFR (MDRD) Non-Af 66, BUN/Creatinine Ratio 18.3, Glucose 107 H, Calcium 8.7, Total Bilirubin 0.54, AST 24, ALT 14, Alkaline Phosphatase 98, Total Protein 6.2, Albumin 3.3 L, Globulin 2.8, Albumin/Globulin Ratio 1.2, Vitamin D 25-Hydroxy 24.5 L Radiography Diagnostic Testing: Radiology Impression Clavicle X-Ray 02/06/25 07:53 IMPRESSION: No obvious change in the known acute, displaced right distal clavicular fracture. Reading Location: [id number] Humerus X-Ray 02/06/25 07:53 IMPRESSION: NO ACUTE FRACTURE OR DISLOCATION. Reading Location: [id number] Physical Exam Const alert and no apparent distress Constitutional Narrative: sleeping, easily awoke. HEENT head/scalp atraumatic and moist oral mucous membranes Resp normal respiratory effort and no retractions Extremity Extremity Narrative: tenting of skin overlying broken clavicle. Skin Skin Narrative: brusing right shoulder. Neuro Sensorium / Orientation: awake and alert Psych affect normal Assessment & Plan Assessment/Plan (1) Debility: PLAN: Patient with marginal performance status is that she is using a walker before this. Now more limited given the clavicular fracture. PT OT evaluate and treat. I do anticipate patient requiring additional needs such as with [facility] facility. (2) Closed fracture of right clavicle: PLAN: Subsequent visit Pain control. Will try to utilize nonnarcotics as much as possible. Unfortunately unable to use NSAIDs as patient is already on apixaban and aspirin. Scheduled acetaminophen, Lidoderm patch. As needed hydromorphone oral. Ice as needed. Seen by Dr. Burleson of orthopedics and recommendations at this point time is nonoperative care. He will revisit to discuss potential other options at a later point. 25-hydroxy vitamin D level 24.5. Start ergocalciferol PLAN: Plan Chronic conditions * DVT: Continue with apixaban * CAD: Continue with aspirin, atorvastatin * Hypothyroidism: Continue levothyroxine * Glaucoma: Continue latanoprost VTE prophylaxis: Not indicated as patient is already anticoagulated. CODE STATUS: Addressed with the patient. Patient wishes to be full code. Charges/Coding Visit Charges Inpatient E&M: 74945 Subs Hosp L2
[2025-02-07] MEDS: Vibegron 75 MG TABLET PO (09:50)
[2025-02-07] MEDS: Potassium Chloride Oral Tablet 20 MEQ PO (09:50)
[2025-02-07] MEDS: Donepezil HCl 10 MG Tablet PO (09:50)
[2025-02-07] MEDS: Lidocaine 5% Patch 1 PATCH TOPICAL (09:50)
[2025-02-07] MEDS: Azelastine HCl NASAL.SRY 2 SPRAY NASAL ×2 (09:51→21:26)
[2025-02-07] MEDS: Lactobacillis Acidophilus 1 CAP PO (09:51)
[2025-02-07] MEDS: Memantine Hydrochloride 10 MG Tablet PO ×2 (09:51→21:33)
[2025-02-07] MEDS: Pantoprazole Sodium 40 MG Tablet PO (09:51)
[2025-02-07] MEDS: APIXABAN 5 MG TABLET PO ×2 (09:51→21:30)
[2025-02-07] MEDS: Multivitamins,Therapeutic Tablet 1 TABLET PO (09:51)
[2025-02-07] MEDS: VORTIOXETINE HYDROBROMIDE 20 MG TABLET PO (09:51)
[2025-02-07] MEDS: Fluticasone 0.05% 1 SPRAY NASAL.SRY NASAL (09:52)
[2025-02-07] MEDS: Aspirin E.C. 81 MG Tablet PO (09:52)
[2025-02-07] MEDS: Famotidine 20 MG Tablet 10 MG PO ×2 (09:53→21:32)
[2025-02-07] MEDS: Pramipexole Di-HCl 0.5 MG Tablet PO ×2 (09:54→21:32)
[2025-02-07] MEDS: Latanoprost 0.005% 1 Bottle 1 DRP OPHTHALMIC (09:54)
[2025-02-07] MEDS: Lacosamide 100 MG Tablet PO ×2 (09:57→21:46)
[2025-02-07 10:06] VITALS: BP 127/85; PULSE 66; RESP 16; TEMP 36.8; O2SAT 96
--- NOTE | 2025-02-07 11:03 | CASEMGMT ---
Social Work- SW met with pt and pt spouse to discuss discharge planning. Pt spouse reports that he cannot care for pt at home.Pt spouse reports that he had hired private duty in home help 8 hrs a day, 7 days per week, but feels that it is not enough help, as pt had a fall that resulted in current hospital stay. Pt spouse had questions regarding inpatient status; SW provided education on medicare benefit. Pt is [facility] and it was explained that pt would not qualify for [facility] coverage of inpatient skilled stay at discharge due to observation status. Pt spouse reports that [facility] is not an option due to resources. Pt spouse reports that he would be able to pay 30 days upfront for SNF. Pt spouse reports that he would like a list of [facility]. A list of SNF providers including quality and resource use data and consistent with the patient?s preferred geographic region, medical needs, and insurance network were provided from the [employer] Guide. Pt and spouse selected [facility] for referral for private pay skilled stay. DCA notified of referral request. KAMALA Hung
--- NOTE | 2025-02-07 11:12 | CASEMGMT ---
Met with patient and her to complete NEGRETE form. NEGRETE form and its content were verbally explained and patient's questions were answered to the best of my ability.? Patient voiced understanding and signed NEGRETE form.? Patient provided a copy of signed NEGRETE form and original placed in patient's chart.? Patient had no further questions. Louise Aggarwal, Discharge Planning Asst
--- NOTE | 2025-02-07 11:21 | CASEMGMT ---
Addendum entered by Louise Aggarwal 02/07/25 14:37: Discharge Planning [facility] has accepted but will only admit if agreeable to TCC unit. SW updated. Louise Aggarwal DC Planning Asst. Original Note: Discharge Planning Referral sent to [facility]. Louise Aggarwal DC Planning Asst.
[2025-02-07] MEDS: Ergocalciferol 1.25 MG (50, 000 UNIT) Capsule PO (12:19)
[2025-02-07 15:53] VITALS: BP 119/67; PULSE 72; RESP 16; TEMP 36.6; O2SAT 96
--- NOTE | 2025-02-07 15:54 | CASEMGMT ---
Social Work- met with pt and spouse to provide information from [facility] regarding admittance. [facility] is willing to accept pt on TCC only due to pt needs. Private pay rate of $500/day. Pt spouse agreeable and does not want to consider other facilities. Pt spouse reports that he will work on the financial piece [place] and look for a call from [facility] for additional coordination. DCA and bedside nurse notified. Physician notified. remains available to follow. Plan: [facility]; private pay skilled stay KAMALA Hung
--- NOTE | 2025-02-07 16:05 | PCM.PN.ORT ---
Subjective Subjective Difficult for the patient to express herself. Follows directions. Here for pain control, distal clavicle fracture R side with superior displacement. Objective Data Objective Data Vital Signs: Vital Signs Temp Pulse Resp BP Pulse Ox O2 Del Method O2 Flow Rate 98 F 72 16 119/67 96 Nasal Cannula 2 02/07/25 15:53 02/07/25 15:53 02/07/25 15:53 02/07/25 15:53 02/07/25 15:53 02/07/25 15:53 02/07/25 15:53 Oxygen Flow Rate (L/min) 2 Oxygen Delivery Method Nasal Cannula Weight: 109 lb 12.643 oz Body Mass Index (BMI) 25.4 Intake & Output: Intake and Output for Last 24 Hours 02/05/25 02/06/25 02/07/25 23:59 23:59 23:59 Intake Total 700 / 700 200 / 200 Balance 700 / 700 200 / 200 Lab / Micro Data 02/06/25 08:22 02/06/25 08:22 Labs: Laboratory Results - last 24 hr 02/06/25 08:22: Vitamin D 25-Hydroxy 24.5 L Physical Exam Const alert and no apparent distress; Negative for oriented x3 General Appearance: cooperative Extremity Extremity Narrative: R shoulder closed, no threatening of skin but prominence of the distal clavicle is noted. There does not appear to be excessive pain to palpate this. It is unstable superiorly. The skin is not threatening or tented. It moves easily over the fracture. The upper extremity is closed neurovascularly intact normal sensation in the hand able to wiggle the fingers strong radial pulse no pain with elbow range of motion mild pain with shoulder range of motion testing. Patient appears very thin overall with thoracic kyphosis and very frail appearing. Assessment & Plan Assessment/Plan (1) Closed fracture of right clavicle: PLAN: 84-year-old low functional demand female with R side an unstable distal clavicle fracture. My opinion is not changed in terms of my recommendation here overall for conservative management sling range of motion and weightbearing and activities as tolerated right upper extremity. If considering surgery this would be in the form of a hook plate with CC ligament reconstruction (or clavicle plate with distal extension - both have high risk of failure and complications) that is still a very large surgery for this 84-year-old female and weighing the pros and cons, my recommendation here is non-surgical. Happy to follow the patient up as an outpatient but will not follow while in hospital.
[2025-02-07 17:59] VITALS: BP 144/71; PULSE 68; RESP 16; TEMP 36.6; O2SAT 94
--- NOTE | 2025-02-07 18:30 | EKG12_ITS ---
Test Reason : chest pain Blood Pressure : */* mmHG Vent. Rate : 68 BPM Atrial Rate : 68 BPM P-R Int : 188 ms QRS Dur : 80 ms QT Int : 410 ms P-R-T Axes : 49 -5 35 degrees QTcB Int : 435 ms Normal sinus rhythm Cannot rule out Anterior infarct (cited on or before 22-Jan-2021) Abnormal ECG When compared with ECG of 05-Oct-2021 14:17, Criteria for Inferior infarct are no longer Present Questionable change in initial forces of Anterolateral leads Confirmed by COLT COHEN, ARTIS ([id number]), editorial manager MARNIE VIZCARRA ([id number]) on 02/08/2025 11:53:31 AM Referred By: Conrado Confirmed By: ARTIS GREGORY MD
[2025-02-07] MEDS: BRIMONIDINE 0.2% 5ML BOTTLE 1 DRP OPHTHALMIC (21:30)
[2025-02-07] MEDS: Atorvastatin Calcium 40 MG Tablet PO (21:32)
[2025-02-07] MEDS: Bisacodyl 5 MG Tablet 10 MG PO (21:36)
[2025-02-07] MEDS: Gabapentin 300 MG Capsule PO (21:36)
[2025-02-07 21:57] VITALS: BP 144/82; PULSE 82; RESP 16; TEMP 36.5; O2SAT 95
[2025-02-07 22:00] VITALS: O2SAT 95
[2025-02-08 04:00] VITALS: BP 138/72; PULSE 86; RESP 16; TEMP 36.7; O2SAT 96
[2025-02-08] MEDS: Donepezil HCl 10 MG Tablet PO ×2 (08:51→08:53)
[2025-02-08] MEDS: Multivitamins,Therapeutic Tablet 1 TABLET PO (08:53)
[2025-02-08] MEDS: Potassium Chloride Oral Tablet 20 MEQ PO (08:54)
[2025-02-08] MEDS: Lactobacillis Acidophilus 1 CAP PO (08:54)
[2025-02-08] MEDS: Memantine Hydrochloride 10 MG Tablet PO (08:54)
[2025-02-08] MEDS: Pramipexole Di-HCl 0.5 MG Tablet PO (08:55)
[2025-02-08] MEDS: Lidocaine 5% Patch 1 PATCH TOPICAL (08:55)
[2025-02-08] MEDS: Aspirin E.C. 81 MG Tablet PO (08:55)
[2025-02-08] MEDS: APIXABAN 5 MG TABLET PO (08:55)
[2025-02-08] MEDS: Famotidine 20 MG Tablet 10 MG PO (08:56)
[2025-02-08] MEDS: Pantoprazole Sodium 40 MG Tablet PO (08:56)
[2025-02-08 09:11] VITALS: BP 133/71; PULSE 88; RESP 16; TEMP 36.6; O2SAT 94
[2025-02-08 09:12] VITALS: PULSE 88; RESP 16
[2025-02-08] MEDS: Azelastine HCl NASAL.SRY 2 SPRAY NASAL (10:57)
[2025-02-08] MEDS: VORTIOXETINE HYDROBROMIDE 20 MG TABLET PO (10:58)
[2025-02-08] MEDS: Vibegron 75 MG TABLET PO (10:58)
[2025-02-08] MEDS: Fluticasone 0.05% 1 SPRAY NASAL.SRY NASAL (10:58)
[2025-02-08] MEDS: Lacosamide 100 MG Tablet PO (10:59)
[2025-02-08] MEDS: Latanoprost 0.005% 1 Bottle 1 DRP OPHTHALMIC (10:59)
--- NOTE | 2025-02-08 11:47 | TREXTCAR_ITS ---
Diet Diet Order/Speech Therapy: INPATIENT Hospital Diet / Speech Therapy Order(s) 02/06/25 11:22 Diet: Regular - General Food consistency:: Regular Liquid Consistency:: Regular/Thin Routine Orders/Code Status Code Status: Full Code DC O2, CPAP, BIPAP needs Home O2 Discharge instructions: Yes Type of respiratory needs?: Oxygen Oxygen frequency: Continuous Continuous oxygen liters per minute: 2 Wound(s) back: Wound Type: Abrasion Therapies Weight Bearing: Non weight bearing Extremity Affected:: Right Upper Physical Therapy: Eval and Treat Occupational Therapy: Eval and Treat Problem/Diagnosis (1) Closed fracture of right clavicle: Status: Acute Code(s): S42.001A - Fracture of unspecified part of right clavicle, initial encounter for closed fracture Plan: Subsequent visit Pain control. Will try to utilize nonnarcotics as much as possible. Un fortunately unable to use NSAIDs as patient is already on apixaban and aspirin. Scheduled acetaminophen, Lidoderm patch. As needed hydromorphone oral. Ice as needed. Seen by Dr. Burleson of orthopedics and recommendations at this point time is nonoperative care. He will revisit to discuss potential other options at a later point. 25-hydroxy vitamin D level 24.5. Start ergocalciferol. Patient has a previously scheduled appointment with [facility] on 02/09. Plan Chronic conditions * DVT: Continue with apixaban * CAD: Continue with aspirin, atorvastatin * Hypothyroidism: Continue levothyroxine * Glaucoma: Continue latanoprost VTE prophylaxis: Not indicated as patient is already anticoagulated. CODE STATUS: Addressed with the patient. Patient wishes to be full code. Allergies/Procedures Done in Hospital Allergies doxycycline Allergy (Mild, Verified 02/06/25 07:30) Vomiting acetaminophen (From Darvocet-N) Allergy (Verified 02/06/25 07:30) Other lamotrigine (From Lamictal) Allergy (Verified 02/06/25 07:30) Lip Swelling moxifloxacin HCl (From Avelox) Allergy (Verified 02/06/25 07:30) Other propoxyphene napsylate (From Darvocet-N) Allergy (Verified 02/06/25 07:30) Other hydrocodone Adverse Reaction (Severe, Verified 02/06/25 07:30) Confusion Nightmares, Suicidal Ideation oxycodone (From Percocet) Adverse Reaction (Severe, Verified 02/06/25 07:30) Confusion Nightmares, Suicidal Ideation zolpidem tartrate (From Ambien) Adverse Reaction (Verified 02/06/25 07:30) Other Type of Care/Length of Stay Estimated LOS: Convalescent Care Less Than 30 days Type of Care Needed: Skilled Rehab Potential: Fair Prognosis: Good Additional Orders/Day of Discharge Day of Discharge: 02/08/25 Dietary and Speech Recommendations Dietitian Recommendations/Changes: Continue regular diet until time of follow-up when RD can obtain more nutrition information. Discharge Plan Admission Admit Date/Time: 02/06/25 10:51 Primary Reason for Your Visit: Right clavicular fracture. Attending Provider: Vincent Camp Primary Care Provider: Yokasta Perry Consulting Providers: Damien Burleson Instructions Additional Instructions / Restrictions: Follow up with [facility] at previously scheduled appointment. If not, then follow up with Dr. Burleson in 1-2 weeks. Discharge Orders/Prescriptions Prescriptions: New ergocalciferol (vitamin D2) [Vitamin D2] 1,250 mcg (50,000 unit) Capsule 1,250 mcg PO Q7D Qty: 7 0RF lidocaine 5 % Adhesive Patch,Medicated 1 patch topical DAILY Qty: 15 0RF Protocol: *Topical Application Instructions APPLICATION INSTRUCTIONS: right shoulder, anterior. Continued Myrbetriq 50 mg tablet extended release 24 hr 50 mg PO QHS aspirin [Adult Aspirin Regimen] 81 mg tablet,delayed release (DR/EC) 81 mg PO DAILY multivitamin Tablet 1 tab PO DAILY famotidine 10 mg tablet 10 mg PO BID d-mannose 500 mg capsule 500 mg PO DAILY albuterol sulfate 2.5 mg /3 mL (0.083 %) solution for nebulization 2.5 mg inhalation Q6H PRN (Reason: Sob &/Or Wheezing) Qty: 180 6RF latanoprost [Xalatan] 0.005 % drops 1 drp ophthalmic (eye) DAILY nitroglycerin 0.4 mg tablet, sublingual 0.4 mg sublingual Q5-15M PRN (Reason: chest pain) Qty: 25 3RF Rx Instructions: do not exceed 3 doses per episode azelastine 137 mcg (0.1 %) spray,non-aerosol 2 spray intranasal BID Patient Comments: [NO ORIGINAL SIG] fluticasone propionate [Allergy Relief (fluticasone)] 50 mcg/actuation spray,suspension 1 spray intranasal DAILY Rx Instructions: administer into each nostril Zyrtec 10 mg capsule 10 mg PO DAILY PRN (Reason: allergy symptoms) pantoprazole 40 mg tablet,delayed release (DR/EC) 40 mg PO DAILY potassium chloride [Klor-Con M20] 20 mEq tablet,ER particles/crystals 20 meq PO DAILY brimonidine 0.2 % drops 1 drp ophthalmic (eye) QHS olopatadine 0.6 % spray,non-aerosol 2 spray intranasal DAILY Patient Comments: [NO ORIGINAL SIG] Probiotic Blend 2 billion cell-50 mg Capsule 1 cap PO DAILY donepezil 10 mg tablet 10 mg PO DAILY hydromorphone [Dilaudid] 2 mg tablet 2 mg PO Q6H PRN (Reason: pain) 3 Days Qty: 12 0RF gabapentin 100 mg capsule 300 mg PO QHS (DME) syringes BD ECLIPSE See Rx Instructions .Route .MEDSUPPLY Rx Instructions: Bd SYR/leticia Eclipse 3ml #5738 BD Sry/needle eclips See Rx Instructions IM .COMPLEX Qty: 12 0RF Rx Instructions: intramuscularly; 3ml #[id number] uses 1 a month (DME) PEP device See Rx Instructions .ROUTE .MEDSUPPLY Qty: 1 0RF Rx Instructions: with training atorvastatin 40 mg tablet See Rx Instructions .ROUTE .COMPLEX Qty: 90 3RF Dose Instruction: TAKE 1 TABLET DAILY Rx Instructions: TAKE 1 TABLET DAILY Eliquis 5 mg tablet 5 mg PO BID Qty: 180 3RF levothyroxine 50 mcg tablet 50 mcg PO DAILY Qty: 90 3RF memantine 10 mg tablet 10 mg PO BID Qty: 180 3RF pramipexole 0.5 mg tablet 0.5 mg PO BID Qty: 180 3RF Trintellix 20 mg tablet 20 mg PO DAILY Qty: 90 3RF furosemide 20 mg tablet 10 mg PO DAILY PRN (Reason: edema) Qty: 30 0RF lacosamide [Vimpat] 100 mg tablet 100 mg PO BID Qty: 180 3RF cyanocobalamin (vitamin B-12) 1,000 mcg/mL solution 1,000 mcg IM QMONTH Qty: 10 0RF Rx Instructions: Can be administered at [facility] Prolia 60 mg/mL syringe 60 mg subcut [id number] Qty: 1 5RF Discontinued diazepam [Valium] 2 mg tablet 2 mg PO TID PRN (Reason: Muscle pain/spasm) 5 Days Qty: 15 0RF Referrals / Follow Up: Yokasta Perry MD [Primary Care Provider] - Within 2 Weeks Disposition Disposition (needs filled in before D/C Order can be placed): [facility]
[2025-02-08 11:55] VITALS: BP 131/89; PULSE 88; RESP 18; TEMP 36.7; O2SAT 94
--- NOTE | 2025-02-08 11:56 | DS.PCM_ITS ---
Providers Date of Admission: 02/06/25 Primary Care Physician: Dr. Yokasta Perry MD Consultations 02/06/25 15:35 Consult: Orthopedics Routine Consulting Provider: Damien Burleson Reason for Consult: right clavicular fracture. EMERGENT Consult: No MD Notified: Yes Date Notified: 02/06/25 Time Notified: 15:36 Method of Notification: ED Physician Initiated Reason For Visit: RIGHT CLAVICLE FRACTURE Diagnosis Discharge Diagnosis (1) Closed fracture of right clavicle: Status: Acute Code(s): S42.001A - Fracture of unspecified part of right clavicle, initial encounter for closed fracture Plan: Subsequent visit Pain control. Will try to utilize nonnarcotics as much as possible. Unfortunately unable to use NSAIDs as patient is already on apixaban and aspirin. Scheduled acetaminophen, Lidoderm patch. As needed hydromorphone oral. Ice as needed. Seen by Dr. Burleson of orthopedics and recommendations at this point time is nonoperative care. He will revisit to discuss potential other options at a later point. 25-hydroxy vitamin D level 24.5. Start ergocalciferol. Patient has a previously scheduled appointment with [facility] on 02/09. Plan Chronic conditions * DVT: Continue with apixaban * CAD: Continue with aspirin, atorvastatin * Hypothyroidism: Continue levothyroxine * Glaucoma: Continue latanoprost VTE prophylaxis: Not indicated as patient is already anticoagulated. CODE STATUS: Addressed with the patient. Patient wishes to be full code. Medications at Discharge Home Medications L.acidophil-L.casei-B.bifid-B.longum-FOS 2 billion cell-50 mg capsule (Probiotic Blend) 1 cap PO DAILY Supplement 09/02/21 aspirin 81 mg tablet,delayed release (Adult Aspirin Regimen) 81 mg PO DAILY 01/10/22 d-mannose 500 mg capsule 500 mg PO DAILY 06/07/22 famotidine 10 mg tablet 10 mg PO BID 06/07/22 multivitamin 1 tab PO DAILY 06/07/22 mirabegron 50 mg tablet,extended release 24 hr (Myrbetriq) 50 mg PO QHS Check with primary doctor 01/29/23 albuterol sulfate 2.5 mg/3 mL (0.083 %) solution for nebulization 2.5 mg (3 mL) inhalation Q6H PRN Sob &/Or Wheezing #180 mL 04/07/23 syringes BD ECLIPSE 04/11/23 latanoprost 0.005 % eye drops (Xalatan) 1 drp ophthalmic (eye) DAILY 08/13/23 nitroglycerin 0.4 mg sublingual tablet 0.4 mg sublingual Q5-15M PRN chest pain #25 tabs 11/12/23 BD Sry/needle eclips See Rx Instructions IM .COMPLEX #12 ea 02/23/24 azelastine 137 mcg (0.1 %) nasal spray 2 spray intranasal BID 03/16/24 cetirizine 10 mg capsule (Zyrtec) 10 mg PO DAILY PRN allergy symptoms 03/16/24 fluticasone propionate 50 mcg/actuation nasal spray,suspension (Allergy Relief (fluticasone)) 1 spray intranasal DAILY 03/16/24 PEP device #1 ea 04/06/24 apixaban 5 mg tablet (Eliquis) 5 mg PO BID #180 tabs 06/08/24 atorvastatin 40 mg tablet See Rx Instructions .Route .COMPLEX #90 tabs 06/08/24 levothyroxine 50 mcg tablet 50 mcg PO DAILY Thyroid #90 tabs 06/08/24 memantine 10 mg tablet 10 mg PO BID Alzheimer's #180 tabs 06/08/24 pramipexole 0.5 mg tablet 0.5 mg PO BID #180 tabs 06/08/24 vortioxetine 20 mg tablet (Trintellix) 20 mg PO DAILY DEPRESSION #90 tabs 06/08/24 brimonidine 0.2 % eye drops 1 drp ophthalmic (eye) QHS 10/14/24 olopatadine 0.6 % nasal spray 2 spray intranasal DAILY 10/14/24 pantoprazole 40 mg tablet,delayed release 40 mg PO DAILY 10/14/24 potassium chloride 20 mEq tablet,extended release(part/cryst) (Klor-Con M) 20 meq PO DAILY 10/14/24 furosemide 20 mg tablet 10 mg (1/2 x 20 mg) PO DAILY PRN edema #30 tabs 11/23/24 lacosamide 100 mg tablet (Vimpat) 100 mg PO BID #180 tabs 12/20/24 cyanocobalamin (vitamin B-12) 1,000 mcg/mL injection solution 1,000 mcg IM QMONTH #10 mL 01/24/25 denosumab 60 mg/mL subcutaneous syringe (Prolia) 60 mg subcut [id number] #1 mL 01/24/25 gabapentin 100 mg capsule 300 mg PO QHS restless leg(s) 02/03/25 donepezil 10 mg tablet 10 mg PO DAILY 02/06/25 ergocalciferol (vitamin D2) 1,250 mcg (50,000 unit) capsule (Vitamin D2) 1,250 mcg PO Q7D #7 caps 02/08/25 hydromorphone 2 mg tablet (Dilaudid) 2 mg PO Q6H PRN pain 3 days #12 tabs 02/08/25 lidocaine 5 % topical patch 1 patch topical DAILY #15 ea 02/08/25 Hospital Course Operations None Procedures None Summary of Care Provided Minutes Spent on Discharge: 35 Hospital Course: Patient presents with debility. Previously had sustained a severely angulated right clavicular fracture after a fall. Patient was seen in the emergency room and sent home. Saw Dr. Quintanilla in the emergency room who referred her to [facility]. But she was just so debilitated so she presented to the emergency room. She was seen in consultation by Dr. Burleson who recommended conservative measures at this time. Patient still has an appointment scheduled for [facility]. Told her to consider following up to get a second opinion to see if this would be amenable to surgery or just continue with conservative measures given its severe angulation. Weight / BMI Weight Weight: 49.8 kg Body Mass Index (BMI) 25.4 ABG / Lab / Microbiology Data 02/06/25 08:22 02/06/25 08:22 D/C Instructions Discharge Diet: No restrictions DC O2, CPAP, BIPAP Needs Home O2 Discharge instructions: Yes Type of respiratory needs?: Oxygen Oxygen frequency: Continuous Continuous oxygen liters per minute: 2 DC home with Oxygen: Yes Home O2 MD Review: I have reviewed the oxygen testing, and the patient qualifies for home oxygen equipment and portability. The patient is mobile in the home and the community. Meaningful Use Info Meaningful Use Meaningful Use Diagnoses (Choose all that apply): None applicable Ischemic Stroke Statin Dosing Therapy Reference: STATIN DOSE THERAPY REFERENCE: * Patients > 75 years receive moderate or high dose statin therapy. * Patients 75 years or YOUNGER should receive HIGH intensity statin dose unless contraindicated. You will be required to document reason for non-treatment if statin daily dose does not meet guidelines. HIGH DOSE STATIN THERAPY DAILY Atorvastatin > than or = to 40 mg Rosuvastatin > than or = to 20 mg Amlodipine + Atorvastatin > than or = to 2.5/40 mg Ezetimibe + Simvastatin 10/80 mg Simvastatin 80mg Discharge Plan Admission Admit Date/Time: 02/06/25 10:51 Primary Reason for Your Visit: Right clavicular fracture. Attending Provider: Vincent Camp Primary Care Provider: Yokasta Perry Consulting Providers: Damien Burleson Instructions Additional Instructions / Restrictions: Follow up with [facility] at previously scheduled appointment. If not, then follow up with Dr. Burleson in 1-2 weeks. Discharge Orders/Prescriptions Prescriptions: New ergocalciferol (vitamin D2) [Vitamin D2] 1,250 mcg (50,000 unit) Capsule 1,250 mcg PO Q7D Qty: 7 0RF lidocaine 5 % Adhesive Patch,Medicated 1 patch topical DAILY Qty: 15 0RF Protocol: *Topical Application Instructions APPLICATION INSTRUCTIONS: right shoulder, anterior. Continued Myrbetriq 50 mg tablet extended release 24 hr 50 mg PO QHS aspirin [Adult Aspirin Regimen] 81 mg tablet,delayed release (DR/EC) 81 mg PO DAILY multivitamin Tablet 1 tab PO DAILY famotidine 10 mg tablet 10 mg PO BID d-mannose 500 mg capsule 500 mg PO DAILY albuterol sulfate 2.5 mg /3 mL (0.083 %) solution for nebulization 2.5 mg inhalation Q6H PRN (Reason: Sob &/Or Wheezing) Qty: 180 6RF latanoprost [Xalatan] 0.005 % drops 1 drp ophthalmic (eye) DAILY nitroglycerin 0.4 mg tablet, sublingual 0.4 mg sublingual Q5-15M PRN (Reason: chest pain) Qty: 25 3RF Rx Instructions: do not exceed 3 doses per episode azelastine 137 mcg (0.1 %) spray,non-aerosol 2 spray intranasal BID Patient Comments: [NO ORIGINAL SIG] fluticasone propionate [Allergy Relief (fluticasone)] 50 mcg/actuation spray,suspension 1 spray intranasal DAILY Rx Instructions: administer into each nostril Zyrtec 10 mg capsule 10 mg PO DAILY PRN (Reason: allergy symptoms) pantoprazole 40 mg tablet,delayed release (DR/EC) 40 mg PO DAILY potassium chloride [Klor-Con M20] 20 mEq tablet,ER particles/crystals 20 meq PO DAILY brimonidine 0.2 % drops 1 drp ophthalmic (eye) QHS olopatadine 0.6 % spray,non-aerosol 2 spray intranasal DAILY Patient Comments: [NO ORIGINAL SIG] Probiotic Blend 2 billion cell-50 mg Capsule 1 cap PO DAILY donepezil 10 mg tablet 10 mg PO DAILY hydromorphone [Dilaudid] 2 mg tablet 2 mg PO Q6H PRN (Reason: pain) 3 Days Qty: 12 0RF gabapentin 100 mg capsule 300 mg PO QHS (DME) syringes BD ECLIPSE See Rx Instructions .Route .MEDSUPPLY Rx Instructions: Bd SYR/leticia Eclipse 3ml #5744 BD Sry/needle eclips See Rx Instructions IM .COMPLEX Qty: 12 0RF Rx Instructions: intramuscularly; 3ml #8988 uses 1 a month (DME) PEP device See Rx Instructions .ROUTE .MEDSUPPLY Qty: 1 0RF Rx Instructions: with training atorvastatin 40 mg tablet See Rx Instructions .ROUTE .COMPLEX Qty: 90 3RF Dose Instruction: TAKE 1 TABLET DAILY Rx Instructions: TAKE 1 TABLET DAILY Eliquis 5 mg tablet 5 mg PO BID Qty: 180 3RF levothyroxine 50 mcg tablet 50 mcg PO DAILY Qty: 90 3RF memantine 10 mg tablet 10 mg PO BID Qty: 180 3RF pramipexole 0.5 mg tablet 0.5 mg PO BID Qty: 180 3RF Trintellix 20 mg tablet 20 mg PO DAILY Qty: 90 3RF furosemide 20 mg tablet 10 mg PO DAILY PRN (Reason: edema) Qty: 30 0RF lacosamide [Vimpat] 100 mg tablet 100 mg PO BID Qty: 180 3RF cyanocobalamin (vitamin B-12) 1,000 mcg/mL solution 1,000 mcg IM QMONTH Qty: 10 0RF Rx Instructions: Can be administered at [facility] Prolia 60 mg/mL syringe 60 mg subcut [id number] Qty: 1 5RF Discontinued diazepam [Valium] 2 mg tablet 2 mg PO TID PRN (Reason: Muscle pain/spasm) 5 Days Qty: 15 0RF Referrals / Follow Up: Yokasta Perry MD [Primary Care Provider] - Within 2 Weeks Disposition Disposition (needs filled in before D/C Order can be placed): Group Home Facility Charges/Coding Visit Charges Inpatient E&M: 28359 Disch Hosp >30min
--- NOTE | 2025-02-08 12:03 | PHA.DC.MR.R ---
Pharmacy [place] Med Reconciliation Pharmacy Service has performed discharge medication reconciliation for this patient. The patient's discharge medication list was reviewed for discrepancies and discrepancies were resolved. Medications at Discharge Home Medications L.acidophil-L.casei-B.bifid-B.longum-FOS 2 billion cell-50 mg capsule (Probiotic Blend) 1 cap PO DAILY Supplement 09/02/21 aspirin 81 mg tablet,delayed release (Adult Aspirin Regimen) 81 mg PO DAILY 01/10/22 d-mannose 500 mg capsule 500 mg PO DAILY 06/07/22 famotidine 10 mg tablet 10 mg PO BID 06/07/22 multivitamin 1 tab PO DAILY 06/07/22 mirabegron 50 mg tablet,extended release 24 hr (Myrbetriq) 50 mg PO QHS Check with primary doctor 01/29/23 albuterol sulfate 2.5 mg/3 mL (0.083 %) solution for nebulization 2.5 mg (3 mL) inhalation Q6H PRN Sob &/Or Wheezing #180 mL 04/07/23 syringes BD ECLIPSE 04/11/23 latanoprost 0.005 % eye drops (Xalatan) 1 drp ophthalmic (eye) DAILY 08/13/23 nitroglycerin 0.4 mg sublingual tablet 0.4 mg sublingual Q5-15M PRN chest pain #25 tabs 11/12/23 BD Sry/needle eclips See Rx Instructions IM .COMPLEX #12 ea 02/23/24 azelastine 137 mcg (0.1 %) nasal spray 2 spray intranasal BID 03/16/24 cetirizine 10 mg capsule (Zyrtec) 10 mg PO DAILY PRN allergy symptoms 03/16/24 fluticasone propionate 50 mcg/actuation nasal spray,suspension (Allergy Relief (fluticasone)) 1 spray intranasal DAILY 03/16/24 PEP device #1 ea 04/06/24 apixaban 5 mg tablet (Eliquis) 5 mg PO BID #180 tabs 06/08/24 atorvastatin 40 mg tablet See Rx Instructions .Route .COMPLEX #90 tabs 06/08/24 levothyroxine 50 mcg tablet 50 mcg PO DAILY Thyroid #90 tabs 06/08/24 memantine 10 mg tablet 10 mg PO BID Alzheimer's #180 tabs 06/08/24 pramipexole 0.5 mg tablet 0.5 mg PO BID #180 tabs 06/08/24 vortioxetine 20 mg tablet (Trintellix) 20 mg PO DAILY DEPRESSION #90 tabs 06/08/24 brimonidine 0.2 % eye drops 1 drp ophthalmic (eye) QHS 10/14/24 olopatadine 0.6 % nasal spray 2 spray intranasal DAILY 10/14/24 pantoprazole 40 mg tablet,delayed release 40 mg PO DAILY 10/14/24 potassium chloride 20 mEq tablet,extended release(part/cryst) (Klor-Con M) 20 meq PO DAILY 10/14/24 furosemide 20 mg tablet 10 mg (1/2 x 20 mg) PO DAILY PRN edema #30 tabs 11/23/24 lacosamide 100 mg tablet (Vimpat) 100 mg PO BID #180 tabs 12/20/24 cyanocobalamin (vitamin B-12) 1,000 mcg/mL injection solution 1,000 mcg IM QMONTH #10 mL 01/24/25 denosumab 60 mg/mL subcutaneous syringe (Prolia) 60 mg subcut [id number] #1 mL 01/24/25 gabapentin 100 mg capsule 300 mg PO QHS restless leg(s) 02/03/25 donepezil 10 mg tablet 10 mg PO DAILY 02/06/25 ergocalciferol (vitamin D2) 1,250 mcg (50,000 unit) capsule (Vitamin D2) 1,250 mcg PO Q7D #7 caps 02/08/25 hydromorphone 2 mg tablet (Dilaudid) 2 mg PO Q6H PRN pain 3 days #12 tabs 02/08/25 lidocaine 5 % topical patch 1 patch topical DAILY #15 ea 02/08/25
[2025-02-08] MEDS: Acetaminophen 500 MG Tablet 1000 MG PO (12:43)
--- NOTE | 2025-02-08 13:02 | CASEMGMT ---
Discharge Planning Discharge orders, signed med list, and transport time sent to [facility]. Physicians will transport by cot at 2p. Nursing, SW, and pts updated. Louise Aggarwal DC Planning Asst.
[2025-02-08] MEDS: HYDROmorphone 2 MG TABLET PO (13:09)
--- NOTE | 2025-02-08 13:26 | CASEMGMT ---
Social Work- SW met with spouse and pt to discuss discharge planning. Pt spouse to be updated when transport time set. KAMALA Hung
--- NOTE | 2025-02-08 13:29 | CASEMGMT ---
Social Work Pt has been approved to admit to [facility] per [facility] admissions. Physician updated and pt is ready for discharge today.? 7000 convalescent form completed in [facility]. Transportation arranged with [facility] for 14:00 pickup via cot.?SW met with pt and spouse; they are agreeable to discharge plan as stated above.? DCA and bedside nurse notified of discharge time. Disposition:[facility], skilled level of care KAMALA Hung
== END 2025-02-08 14:37 | disposition skilled nursing facility (03) ==
LOC: ED 07:55 → MS3 11:03
PROVIDERS: Emergency Provider Emergency Medicine; PCP Internal Medicine
DX: S42.031A Displaced fracture of lateral end of right clavicle, initial encounter for closed fracture (principal); F01.50 Vascular dementia, unspecified severity, without behavioral disturbance, psychotic disturbance, mood disturbance, and anxiety; R53.81 Other malaise; Z79.01 Long term (current) use of anticoagulants; K21.9 Gastro-esophageal reflux disease without esophagitis; I25.10 Atherosclerotic heart disease of native coronary artery without angina pectoris; M81.0 Age-related osteoporosis without current pathological fracture; E78.00 Pure hypercholesterolemia, unspecified; I10 Essential (primary) hypertension; Z79.890 Hormone replacement therapy; D64.9 Anemia, unspecified; Z79.82 Long term (current) use of aspirin; W18.39XA Other fall on same level, initial encounter; E03.9 Hypothyroidism, unspecified; H40.9 Unspecified glaucoma; Z79.899 Other long term (current) drug therapy; Z79.51 Long term (current) use of inhaled steroids; Z86.718 Personal history of other venous thrombosis and embolism
CPT/HCPCS: 73000; 73060; 80053; 82306; 85027; 93005; 96361; 96374; 96375; 97162; 97166; 99221; 99285; A4216; G0378; J2405

== ENCOUNTER → 2025-02-10 06:00 | Outpatient (REF) | payer MEDICARE, SELFPAY ==
[2025-02-10 09:13] LABS: Color, Urine Yellow (Yellow); Glucose, Dipstick Normal (Normal); Ketone-Dipstick 15 mg/dl (Negative); Leukocyte Esterase-Dipstick Negative /ul (Negative); Nitrite-Dipstick Negative (Negative); Occult Blood-Urine Negative /ul (Negative); Protein-Dipstick Negative (Negative); Urine Bilirubin Dipstick Negative (Negative); Urine Clarity Clear (Clear); Urine Urobilinogen 4 mg/dl (Normal)
[2025-02-10 09:15] LABS: Absolute Lymphocyte Count 1.28 X10^3/uL (0.83-4.51); Absolute Neutrophil Count 2.1 X10^3/uL (2.0-7.7); Basophil# 0.04 X10^3/uL; Eosinophil# 0.23 X10^3/uL; Eosinophils% 5.7 % (0-5); Hematocrit 33.2 % (37-47); Hemoglobin 10.5 g/dL (12.0-15.0); Lymphocyte # 1.28 X10^3/ul (0.83-4.51); Lymphocyte % 31.4 % (19-41); Mean Corp Hgb Conc 31.6 g/dL (32-36); Mean Corpuscular Hgb 28.2 pg (27.0-32.0); Mean Corpuscular Volume 89.2 fL (81-99); Mean Platelet Vol. 10.3 fl (6.2-12.0); Monocyte# 0.38 X10^3/uL; Monocyte% 9.3 % (0-10); NRBC Flagged by Analyzer 0 % (0-5); Neutrophil # 2.13 X10^3/uL (2.7-7.7); Neutrophil % 52.4 % (47-70); Platelet Count 211 K/mm3 (150-450); RBC Distribution Width CV 13.5 % (11.6-14.6); Red Blood Count 3.72 M/mm3 (4.2-5.4); White Blood Count 4.1 K/mm3 (4.4-11.0)
[2025-02-10 09:44] LABS: ALB/GLOB Ratio 1.2 RATIO (0.9-2.4); AST(SGOT) 26 U/L (<=31); Alanine Aminotransfer ALT/SGPT 13 U/L (<=34); Albumin, Serum 3.6 g/dL (3.4-4.8); Alkaline Phosphatase 111 U/L (35-104); Anion Gap 11 (5-15); BUN 10 mg/dL (4-19); BUN/Creat Ratio 12.7 RATIO (10-20); Calcium,Total 9.1 mg/dL (7.6-11.0); Carbon Dioxide 26.6 mmol/L (21.0-32.0); Chloride 101 mmol/L (98-108); Cholesterol 115 mg/dL (<=200); Creatinine, Serum 0.77 mg/dL (0.70-1.20); EST Glomerular Filtration Rate 77 (>60); Glucose 97 mg/dL (70-99); High Density Lipoprotein 46 mg/dL; Low Density Lipoprotein Calc. 50 mg/dL; Potassium 3.9 mmol/L (3.3-5.1); Protein, Total 6.6 g/dL (5.9-8.4); Sodium Level 138 mmol/L (133-145); Total Bilirubin 0.71 mg/dL (0.00-1.30); Triglycerides 99 mg/dL; Very Low Density Lipoprotein 20 mg/dL (5-40); Vitamin B12 1635 pg/mL (180-914); cholesterol:hdl ratio screen 2.52
== END ==
LOC: OLS.WHLTCC 06:00
PROVIDERS: PCP Internal Medicine; Visit Provider Internal Medicine
DX: E78.5 Hyperlipidemia, unspecified (principal); R54 Age-related physical debility
CPT/HCPCS: 36415; 80053; 80061; 81002; 82607; 84443; 85025

== ENCOUNTER → 2025-02-14 | Outpatient (REF) | payer MEDICARE, SELFPAY ==
[2025-02-14 09:15] LABS: AST(SGOT) 42 U/L (<=31); Alanine Aminotransfer ALT/SGPT 22 U/L (<=34); Albumin, Serum 3.3 g/dL (3.4-4.8); Alkaline Phosphatase 96 U/L (35-104); Bilirubin, Direct 0.19 mg/dL (0.00-0.30); Globulin 2.7 g/dL (2.2-4.2); Total Bilirubin 0.41 mg/dL (0.00-1.30); Vitamin B12 1430 pg/mL (180-914)
[2025-02-15 11:59] LABS: Absolute Lymphocyte Count 1.82 X10^3/uL (0.83-4.51); Absolute Neutrophil Count 1.8 X10^3/uL (2.0-7.7); Basophil# 0.06 X10^3/uL; Basophil% 1.4 % (0-1); Eosinophil# 0.31 X10^3/uL; Eosinophils% 7.2 % (0-5); Hematocrit 32.4 % (37-47); Hemoglobin 10.2 g/dL (12.0-15.0); Lymphocyte # 1.82 X10^3/ul (0.83-4.51); Mean Corp Hgb Conc 31.5 g/dL (32-36); Mean Corpuscular Hgb 28.7 pg (27.0-32.0); Mean Corpuscular Volume 91.3 fL (81-99); Mean Platelet Vol. 10.8 fl (6.2-12.0); Monocyte# 0.33 X10^3/uL; Monocyte% 7.6 % (0-10); NRBC Flagged by Analyzer 0 % (0-5); Neutrophil % 41.6 % (47-70); Platelet Count 201 K/mm3 (150-450); RBC Distribution Width CV 14.6 % (11.6-14.6); RBC Distribution Width SD 48.3 fl (35.1-43.9); Red Blood Count 3.55 M/mm3 (4.2-5.4); White Blood Count 4.3 K/mm3 (4.4-11.0)
[2025-02-15 12:28] LABS: Anion Gap 11 (5-15); BUN 16 mg/dL (4-19); BUN/Creat Ratio 22.2 RATIO (10-20); Calcium,Total 8.6 mg/dL (7.6-11.0); Carbon Dioxide 21.4 mmol/L (21.0-32.0); Chloride 106 mmol/L (98-108); Cholesterol 110 mg/dL (<=200); Creatinine, Serum 0.71 mg/dL (0.70-1.20); EST Glomerular Filtration Rate 85 (>60); Glucose 76 mg/dL (70-99); High Density Lipoprotein 37 mg/dL; Low Density Lipoprotein Calc. 44 mg/dL; Potassium 4.2 mmol/L (3.3-5.1); Sodium Level 138 mmol/L (133-145); Triglycerides 145 mg/dL; Very Low Density Lipoprotein 29 mg/dL (5-40); Vitamin D,25 Hydroxy 28.1 ng/mL (30-100)
== END ==
LOC: OLS.WHLTCC 05:00
PROVIDERS: PCP Internal Medicine; Visit Provider Nurse Practitioner Adult Health
DX: I25.10 Atherosclerotic heart disease of native coronary artery without angina pectoris (principal); E55.9 Vitamin D deficiency, unspecified; D50.9 Iron deficiency anemia, unspecified; F03.90 Unspecified dementia, unspecified severity, without behavioral disturbance, psychotic disturbance, mood disturbance, and anxiety; S42.001D Fracture of unspecified part of right clavicle, subsequent encounter for fracture with routine healing
CPT/HCPCS: 36415; 80048; 80061; 80076; 82306; 82607; 84443; 85025

== ENCOUNTER → 2025-02-22 04:00 | Outpatient (REF) | payer MEDICARE, SELFPAY ==
[2025-02-22 06:36] LABS: Hematocrit 33.1 % (37-47); Hemoglobin 10.3 g/dL (12.0-15.0); Immature Granulocytes Count 0.020 X10^3/uL (0.0-0.0); Mean Corp Hgb Conc 31.1 g/dL (32-36); Mean Corpuscular Volume 91.7 fL (81-99); Mean Platelet Vol. 10.5 fl (6.2-12.0); NRBC Flagged by Analyzer 0 % (0-5); Platelet Count 237 K/mm3 (150-450); RBC Distribution Width CV 15.4 % (11.6-14.6); RBC Distribution Width SD 50.7 fl (35.1-43.9); Red Blood Count 3.61 M/mm3 (4.2-5.4); White Blood Count 4.9 K/mm3 (4.4-11.0)
[2025-02-22 06:54] LABS: Anion Gap 8 (5-15); BUN 19 mg/dL (4-19); BUN/Creat Ratio 23.5 RATIO (10-20); Calcium,Total 8.9 mg/dL (7.6-11.0); Carbon Dioxide 25.4 mmol/L (21.0-32.0); Chloride 105 mmol/L (98-108); Glucose 79 mg/dL (70-99); Potassium 4.4 mmol/L (3.3-5.1)
== END ==
LOC: OLS.WHLTCC 04:00
PROVIDERS: PCP Internal Medicine; Referring Provider Nurse Practitioner Adult Health; Visit Provider Nurse Practitioner Adult Health
DX: S42.001D Fracture of unspecified part of right clavicle, subsequent encounter for fracture with routine healing (principal); R54 Age-related physical debility; F03.90 Unspecified dementia, unspecified severity, without behavioral disturbance, psychotic disturbance, mood disturbance, and anxiety; D50.9 Iron deficiency anemia, unspecified
CPT/HCPCS: 36415; 80048; 85025

== ENCOUNTER 2025-03-11 18:07 | Emergency (ER) | payer MEDICARE, OTHER, SELFPAY ==
[2025-03-11 18:08] VITALS: BP 163/136; PULSE 77; RESP 18; TEMP 36.8; O2SAT 99
[2025-03-11 18:35] VITALS: BMI 24.7
--- NOTE | 2025-03-11 18:37 | EKG12_ITS ---
Test Reason : Blood Pressure : */* mmHG Vent. Rate : 62 BPM Atrial Rate : 62 BPM P-R Int : 206 ms QRS Dur : 80 ms QT Int : 454 ms P-R-T Axes : 31 -17 1 degrees QTcB Int : 460 ms Normal sinus rhythm Minimal voltage criteria for LVH, may be normal variant ( R in aVL ) Inferior infarct , age undetermined Abnormal ECG Confirmed by COLT COHEN, ARTIS ([id number]), sound editor ARIE RASMUSSEN ([id number]) on 03/14/2025 8:32:57 AM Referred By: VITO Confirmed By: ARTIS GREGORY MD
--- NOTE | 2025-03-11 18:37 | CT_ITS ---
PROCEDURE: BRAIN/HEAD WITHOUT CONTRAST 03/11/2025 REASON FOR EXAM: ACUTE TREMORS; SUBACUTE R PTOSIS TECHNIQUE: BRAIN/HEAD WITHOUT CONTRAST Coronal and Sagittal reconstruction series were provided. One or more dose reduction techniques were used (e.g., Automated exposure control, adjustment of the mA and/or kV according to patient size, use of iterative reconstruction technique. RADIATION DOSE SUMMARY: CTDlvol: 44.99 mGy DLP: 846.73 mGycm COMPARISON: 06/07/2024. FINDINGS: Severe global parenchymal atrophy. Chronic microvascular ischemia. No evidence of acute hemorrhage or infarction. No extra-axial blood or fluid collections. The paranasal sinuses and mastoid air cells are clear. The calvarial vault and skull base are intact. CT/Brain/Head without Contrast IMPRESSION: NO ACUTE FINDINGS Reading Location: [id number]
--- NOTE | 2025-03-11 18:42 | EX.ED.DYSGE1 ---
HPI History of Present Illness Chief Complaint: Other, Pain/Inj Informant: patient and spouse/S.O. Narrative Narrative: 84-year-old female presenting to the ER with multiple complaints. The main one is that she has a new intermittent tremor that has been occurring mostly in both legs, she thinks it is worse in the right but it occurs in both simultaneously, for 10 minutes at a time for the past 3 days. She is awake and aware during this. She has a history of complex partial seizures in which case she was not awake/aware and would have episodes where she would suddenly stop talking and stare off or talk nonsensically. This was diagnosed by continuous EEG, she has been on Vimpat for this for a couple of decades and basically had no major issues. She also has had worse dyspnea on exertion and orthopnea compared to usual, and she has chronic edema in her legs that that has been thinks is worse. She denies any chest discomfort. She denies major cough, no fevers or chills. Also she broke her right distal clavicle a month or so ago, and she has been having constant pain with it. She states orthopedics has referred her to a specialist, they want to do surgery but she is a very poor surgical candidate and they are afraid that it may not be the best maneuver if she may not do well with it, this is according to the patient. Also states she has had some vomiting and diarrhea off and on lately. In addition, she has had ptosis of the right eye for maybe the past [address] [facility] Medical History Right clavicle fracture Leg edema Open wound of right lower extremity Contusion of right foot Kyphoscoliosis deformity of spine Bee sting Lumbar contusion Contusion of thoracic wall Pain of left lower extremity Contact with and (suspected) exposure to other viral communicable diseases Contusion of left wrist Left elbow contusion Contusion of left shoulder Scalp contusion Injury of left elbow Injury of left shoulder Presence of stent in coronary artery (~1989) Atherosclerotic heart disease of [place] coronary artery without angina pectoris Essential hypertension Influenza A Health care maintenance Falls frequently Cancer Depression Dementia Walker as ambulation aid Arthritis Bladder disease Low iron DVT (deep venous thrombosis) High cholesterol Restless legs Back pain TIA (transient ischemic attack) Seizures Difficulty swallowing Gastric reflux Non-smoker Asthma Shortness of breath on exertion Hx of echocardiogram History of stress test Hypertension Cardiology follow-up encounter History of heart attack Hypertension aquired autoimmune encephalopathy h/o back surgery Heart disease Dementia Partial complex seizures Home Medications ?Medication ?Instructions ?Recorded ?Last Taken ?Type L.acidophil-L.casei-B.bifid-B.longum-FOS 1 cap PO DAILY Supplement 09/02/21 02/05/25 History 2 billion cell-50 mg capsule (Probiotic Blend) aspirin 81 mg tablet,delayed 81 mg PO DAILY 01/10/22 02/05/25 History release (Adult Aspirin Regimen) d-mannose 500 mg capsule 500 mg PO DAILY 06/07/22 02/05/25 History famotidine 10 mg tablet 10 mg PO BID 06/07/22 02/05/25 History multivitamin 1 tab PO DAILY 06/07/22 02/05/25 History mirabegron 50 mg tablet,extended 50 mg PO QHS Check with primary 01/29/23 02/05/25 History release 24 hr (Myrbetriq) doctor syringes BD ECLIPSE 04/11/23 Unknown History latanoprost 0.005 % eye drops 1 drp ophthalmic (eye) DAILY 08/13/23 02/05/25 History (Xalatan) nitroglycerin 0.4 mg sublingual 0.4 mg sublingual Q5-15M PRN chest 11/12/23 Unknown Rx tablet pain #25 tabs BD Sry/needle eclips See Rx Instructions IM .COMPLEX 02/23/24 Unknown Rx #12 ea azelastine 137 mcg (0.1 %) nasal 2 spray intranasal BID 03/16/24 Unknown History spray cetirizine 10 mg capsule (Zyrtec) 10 mg PO DAILY PRN allergy symptoms 03/16/24 Unknown History fluticasone propionate 50 1 spray intranasal DAILY 03/16/24 02/05/25 History mcg/actuation nasal spray,suspension (Allergy Relief (fluticasone)) PEP device #1 ea 04/06/24 Unknown Rx apixaban 5 mg tablet (Eliquis) 5 mg PO BID #180 tabs 06/08/24 02/05/25 Rx atorvastatin 40 mg tablet See Rx Instructions .Route 06/08/24 02/05/25 Rx .COMPLEX #90 tabs levothyroxine 50 mcg tablet 50 mcg PO DAILY Thyroid #90 tabs 06/08/24 02/05/25 Rx memantine 10 mg tablet 10 mg PO BID Alzheimer's #180 tabs 06/08/24 02/05/25 Rx pramipexole 0.5 mg tablet 0.5 mg PO BID #180 tabs 06/08/24 02/05/25 Rx vortioxetine 20 mg tablet 20 mg PO DAILY DEPRESSION #90 tabs 06/08/24 02/05/25 Rx (Trintellix) brimonidine 0.2 % eye drops 1 drp ophthalmic (eye) QHS 10/14/24 02/05/25 History olopatadine 0.6 % nasal spray 2 spray intranasal DAILY 10/14/24 Unknown History pantoprazole 40 mg tablet,delayed 40 mg PO DAILY 10/14/24 02/05/25 History release potassium chloride 20 mEq 20 meq PO DAILY 10/14/24 02/05/25 History tablet,extended release(part/cryst) (Klor-Con M) furosemide 20 mg tablet 10 mg (1/2 x 20 mg) PO DAILY PRN 11/23/24 Unknown Rx edema #30 tabs denosumab 60 mg/mL subcutaneous 60 mg subcut [id number] #1 mL 01/24/25 Unknown Rx syringe (Prolia) gabapentin 100 mg capsule 300 mg PO QHS restless leg(s) 02/03/25 02/05/25 History donepezil 10 mg tablet 10 mg PO DAILY 02/06/25 02/05/25 History ergocalciferol (vitamin D2) 1,250 1,250 mcg PO Q7D #7 caps 02/08/25 Unknown Rx mcg (50,000 unit) capsule (Vitamin D2) lacosamide 100 mg tablet (Vimpat) 100 mg PO BID 20 days #40 tabs 02/08/25 Unknown Rx lidocaine 5 % topical patch 1 patch topical DAILY #15 ea 02/08/25 Unknown Rx acetaminophen 500 mg capsule 500 mg PO Q6H PRN 02/22/25 Unknown History dorzolamide 22.3 mg-timolol 6.8 1 drp ophthalmic (eye) BID 02/22/25 Unknown History mg/mL eye drops ondansetron 4 mg disintegrating 4 mg PO Q4H PRN 02/22/25 Unknown History tablet sennosides 8.6 mg-docusate sodium 1 tab-cap PO QHS 02/22/25 Unknown History 50 mg tablet (Senna Plus) albuterol sulfate 2.5 mg/3 mL 2.5 mg (3 mL) inhalation Q6H PRN 03/10/25 Unknown Rx (0.083 %) solution for nebulization Sob &/Or Wheezing #180 mL Allergy/AdvReac Type Severity Reaction Status Date / Time doxycycline Allergy Mild Vomiting Verified 03/11/25 18:09 lamotrigine (From Lamictal) Allergy Lip Verified 03/11/25 18:09 Swelling moxifloxacin HCl (From Allergy Other Verified 03/11/25 18:09 Avelox) propoxyphene napsylate (From Allergy Other Verified 03/11/25 18:09 Darvocet-N) hydrocodone AdvReac Severe Confusion Verified 03/11/25 18:09 oxycodone (From Percocet) AdvReac Severe Confusion Verified 03/11/25 18:09 zolpidem tartrate (From AdvReac Other Verified 03/11/25 18:09 Ambien) Family History Mother CVA (cerebral vascular accident) Arthritis Father Myocardial infarction, Onset Age: 40 Alcoholism Hypertension Sister Anemia Grandmother Bowel disease Osteoporosis Ovarian cancer Surgical History History of repair of hiatal hernia History of cholecystectomy History of hernia surgery Presence of coronary angioplasty implant and graft (~1989) History of hammer toe correction History of lumbar laminectomy History of carpal tunnel release History of tonsillectomy and adenoidectomy History of lumpectomy of left breast History of cardiac catheterization History of esophagogastroduodenoscopy (EGD) Hx of colonoscopy Hx of ventral hernia repair Hx of cataract extraction History of laryngoscopy History of appendectomy H/O kyphoplasty Social History household members: spouse housing: house Smoking Status: Never smoker alcohol intake: current alcohol intake frequency: a few times a week Alcohol type: wine substance use type: does not use caffeine: Yes Type: coffee Number of servings: 1 what type of physical activity do you participate in: other details: PT 3x weekly frequency: 3-4 times per week do you feel safe at home: Yes ROS ROS ED Constitutional Constitutional ED: Reports fatigue; Denies chills or fever(s) Eyes Eyes: Denies change in vision or diplopia ENT ENT ED: Denies rhinorrhea or sore throat Cardiovascular Cardiovascular: Reports leg edema and orthopnea; Denies chest pain or palpitations Respiratory/Chest Respiratory/Chest: Reports dyspnea on exertion and orthopnea; Denies cough Gastrointestinal Gastrointestinal: Reports diarrhea, nausea and vomiting; Denies abdominal pain Genitourinary Genitourinary ED: Denies dysuria or hematuria Musculoskeletal Musculoskeletal: Denies back pain or neck pain Integumentary Denies abscess or rash Neurologic Neurologic: Reports as per HPI and tremor(s); Denies headache(s), paresthesias or weakness Psychiatric Psychiatric: Denies suicidal thoughts EXAM Physical Exam Const Vital Signs: 03/11/25 18:08 03/11/25 18:33 03/11/25 18:43 Temperature 98.3 F Temperature Source Oral Pulse Rate 77 Respiratory Rate 18 Respiratory Effort Normal Non-Labored Blood Pressure 163/136 H Blood Pressure Mean 145 Pulse Ox 99 Oxygen Delivery Method Room Air Room Air Oxygen Flow Rate (L/min) 03/11/25 20:00 Temperature Temperature Source Pulse Rate 65 Respiratory Rate 18 Respiratory Effort Blood Pressure 122/61 H Blood Pressure Mean 81 Pulse Ox 97 Oxygen Delivery Method Nasal Cannula Oxygen Flow Rate (L/min) 2 Positive well nourished and well developed General Appearance ED: well developed and NAD HEENT Reports moist mucous membranes HEENT Narrative: Mild right eye ptosis. No lower facial droop. normocephalic and atraumatic Eyes PERRL and EOMs intact bilaterally Neck full ROM and supple Resp normal respiratory effort and clear to auscultation bilaterally Cardio regular rate and regular rhythm GI non-tender and non-distended Auscultation: normoactive bowel sounds Palpation: soft Back/Spine no CVA tenderness Back/Spine Narrative: Very kyphotic General Back: other FROM Extremity normal to inspection General Extremety ED: Yes edema; Negative for pulses abnormal or tenderness General Extremity: edema bilateral lower extremity Details: moderate (To mid barry bilaterally and symmetrically); Negative for pulses abnormal Neuro oriented x3, CN's II-XII intact bilaterally and no sensory deficits noted Neuro Narrative: Normal speech and hospital receptionist Sensorium / Orientation: awake and alert Motor Exam: strength 5/5 throughout Psych mental status grossly normal Skin no rashes or lesions noted and no wounds MDM MDM MDM Narrative Medical decision making narrative: Patient with multiple complaints. Cardiac workup along with a proBNP, the proBNP is well within normal limits ruling out acute decompensated congestive heart failure. Her initial troponin is nonspecifically elevated, the second 1 is trending down, arguing against acute coronary syndrome and I do not think we need to do more measurements. She is little prerenal so she was given IV fluids, possibly she is having muscle spasms in her legs related to this. Her potassium was slightly elevated but this is due to hemolysis and I do not think it is actually elevated. Her blood counts are noted and unremarkable. I did a CT of the head given the possibility of this being seizure-like activity and proptosis on the right that although she states it has been there for 6 months is relatively new. My interpretation it is unremarkable radiology was in agreement. Similarly, chest x-ray was obtained since she is complaining of new dyspnea and cough, 2 views of my interpretation showed no pneumonia radiology also in agreement showing chronic abnormalities. Patient is doing well she is not having this tremor while she is here in her legs. At this time my suspicion based on the history is this is very unlikely to be seizure activity. I do not think she needs to be admitted for continuous EEG monitoring at this time. She states she has an appointment with neurology within the next 1-2 weeks, they are going to call and see if they can move that up after the weekend which I think is reasonable. We discussed reasons to return she is comfortable with that plan as is . Lab Data Attestation: I reviewed the patient's lab results. Labs: Laboratory Results - last 24 hr 03/11/25 03/11/25 18:45 20:53 WBC 5.6 RBC 3.37 L Hgb 9.5 L Hct 31.6 L MCV 93.8 MCH 28.2 MCHC 30.1 L RDW Std Deviation 53.4 H RDW Coeff of Jorge 15.5 H Plt Count 196 MPV 11.2 Immature Gran % (Auto) 0.200 Neut % (Auto) 52.7 Lymph % (Auto) 30.9 Toombs % (Auto) 9.1 Eos % (Auto) 6.6 H Baso % (Auto) 0.5 Absolute Neuts (auto) 2.9 Absolute Lymphs (auto) 1.73 Nucleated RBC % 0 Sodium 140 Potassium 5.2 H Chloride 104 Carbon Dioxide 27.4 Anion Gap 9 BUN 23 H Creatinine 1.01 Estim Creat Clear Calc 30.85 L Est GFR (MDRD) Non-Af 56 L BUN/Creatinine Ratio 22.9 H Glucose 114 H Calcium 8.3 Troponin T High Sens 27 H Troponin T Hi Sens 2 Hr 24 H NT pro BNP II 346 Radiography Diagnostic Testing: Clinical Impression(s) from Imaging Studies Brain CT 03/11/25 18:37 IMPRESSION: NO ACUTE FINDINGS Reading Location: [facility] Chest X-Ray 03/11/25 19:00 IMPRESSION: Chronic findings suggestive of COPD/scarring. 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 Instructions: IV Infiltration Dc, ED Peripheral Edema, Bilateral Prescriptions: No Action Myrbetriq 50 mg tablet extended release 24 hr 50 mg PO QHS aspirin [Adult Aspirin Regimen] 81 mg tablet,delayed release (DR/EC) 81 mg PO DAILY multivitamin Tablet 1 tab PO DAILY famotidine 10 mg tablet 10 mg PO BID d-mannose 500 mg capsule 500 mg PO DAILY latanoprost [Xalatan] 0.005 % drops 1 drp ophthalmic (eye) DAILY nitroglycerin 0.4 mg tablet, sublingual 0.4 mg sublingual Q5-15M PRN (Reason: chest pain) Qty: 25 3RF Rx Instructions: do not exceed 3 doses per episode azelastine 137 mcg (0.1 %) spray,non-aerosol 2 spray intranasal BID Patient Comments: [NO ORIGINAL SIG] fluticasone propionate [Allergy Relief (fluticasone)] 50 mcg/actuation spray,suspension 1 spray intranasal DAILY Rx Instructions: administer into each nostril Zyrtec 10 mg capsule 10 mg PO DAILY PRN (Reason: allergy symptoms) pantoprazole 40 mg tablet,delayed release (DR/EC) 40 mg PO DAILY potassium chloride [Klor-Con M20] 20 mEq tablet,ER particles/crystals 20 meq PO DAILY brimonidine 0.2 % drops 1 drp ophthalmic (eye) QHS olopatadine 0.6 % spray,non-aerosol 2 spray intranasal DAILY Patient Comments: [NO ORIGINAL SIG] sennosides-docusate sodium [Senna Plus] 8.6-50 mg tablet 1 tab-cap PO QHS dorzolamide-timolol 22.3-6.8 mg/mL drops 1 drp ophthalmic (eye) BID ondansetron 4 mg tablet,disintegrating 4 mg PO Q4H PRN acetaminophen 500 mg capsule 500 mg PO Q6H PRN Probiotic Blend 2 billion cell-50 mg Capsule 1 cap PO DAILY donepezil 10 mg tablet 10 mg PO DAILY ergocalciferol (vitamin D2) [Vitamin D2] 1,250 mcg (50,000 unit) Capsule 1,250 mcg PO Q7D Qty: 7 0RF lidocaine 5 % Adhesive Patch,Medicated 1 patch topical DAILY Qty: 15 0RF Protocol: *Topical Application Instructions APPLICATION INSTRUCTIONS: right shoulder, anterior. gabapentin 100 mg capsule 300 mg PO QHS (DME) syringes BD ECLIPSE See Rx Instructions .Route .MEDSUPPLY Rx Instructions: Bd SYR/leticia Eclipse 3ml #3125 BD Sry/needle eclips See Rx Instructions IM .COMPLEX Qty: 12 0RF Rx Instructions: intramuscularly; 3ml #8858 uses 1 a month (DME) PEP device See Rx Instructions .ROUTE .MEDSUPPLY Qty: 1 0RF Rx Instructions: with training atorvastatin 40 mg tablet See Rx Instructions .ROUTE .COMPLEX Qty: 90 3RF Dose Instruction: TAKE 1 TABLET DAILY Rx Instructions: TAKE 1 TABLET DAILY Eliquis 5 mg tablet 5 mg PO BID Qty: 180 3RF levothyroxine 50 mcg tablet 50 mcg PO DAILY Qty: 90 3RF memantine 10 mg tablet 10 mg PO BID Qty: 180 3RF pramipexole 0.5 mg tablet 0.5 mg PO BID Qty: 180 3RF Trintellix 20 mg tablet 20 mg PO DAILY Qty: 90 3RF furosemide 20 mg tablet 10 mg PO DAILY PRN (Reason: edema) Qty: 30 0RF Prolia 60 mg/mL syringe 60 mg subcut [id number] Qty: 1 5RF lacosamide [Vimpat] 100 mg tablet 100 mg PO BID 20 Days Qty: 40 3RF albuterol sulfate 2.5 mg /3 mL (0.083 %) solution for nebulization 2.5 mg inhalation Q6H PRN (Reason: Sob &/Or Wheezing) Qty: 180 6RF Primary Care Provider: Yokasta Perry Referrals: your neurologist [Other] - Keep Brandy appointment Yokasta Perry MD [Primary Care Provider] - Print Language: Persian Disposition Disposition: Home, Self Care
--- NOTE | 2025-03-11 19:00 | RAD_ITS ---
PROCEDURE: CHEST 1 VIEW (PORTABLE) 03/11/2025 REASON FOR EXAM: SOB TECHNIQUE: Frontal view of the chest. COMPARISON: 11/09/2024. FINDINGS: The lungs are hyperaerated. Similar biapical scarring. The heart size is unchanged. Left axillary surgical clips. RAD/Chest 1 View (Portable) IMPRESSION: Chronic findings suggestive of COPD/scarring. Reading Location: [id number]
[2025-03-11 19:06] LABS: Hematocrit 31.6 % (37-47); Hemoglobin 9.5 g/dL (12.0-15.0); Immature Granulocytes Count 0.010 X10^3/uL (0.0-0.0); Mean Corp Hgb Conc 30.1 g/dL (32-36); Mean Corpuscular Volume 93.8 fL (81-99); Mean Platelet Vol. 11.2 fl (6.2-12.0); NRBC Flagged by Analyzer 0 % (0-5); Platelet Count 196 K/mm3 (150-450); RBC Distribution Width CV 15.5 % (11.6-14.6); RBC Distribution Width SD 53.4 fl (35.1-43.9); Red Blood Count 3.37 M/mm3 (4.2-5.4); White Blood Count 5.6 K/mm3 (4.4-11.0)
[2025-03-11 19:36] LABS: Anion Gap 9 (5-15); BUN 23 mg/dL (4-19); BUN/Creat Ratio 22.9 RATIO (10-20); Calcium,Total 8.3 mg/dL (7.6-11.0); Carbon Dioxide 27.4 mmol/L (21.0-32.0); Chloride 104 mmol/L (98-108); Estimated Creatinine Clearance 30.85 ml/min (50-250); Glucose 114 mg/dL (70-99); Potassium 5.2 mmol/L (3.3-5.1)
[2025-03-11 19:57] LABS: Pro- Brain NATRIURETIC PEPTIDE 346 pg/mL (<=1800); Troponin T High Sensitivity 27 ng/L (<=14)
[2025-03-11 20:00] VITALS: BP 122/61; PULSE 65; RESP 18; O2SAT 97
[2025-03-11] MEDS: 0.9% Normal Saline (500mL Bag) 500 ML 999 ML IV (21:05)
[2025-03-11 21:24] LABS: Troponin T High Sens 2 HR 24 ng/L (<=14)
[2025-03-11 21:52] VITALS: BP 143/65; PULSE 65; RESP 18; TEMP 36.6; O2SAT 95
== END 2025-03-11 23:02 | disposition home or self-care (01) ==
PROVIDERS: Emergency Provider Emergency Medicine; PCP Internal Medicine; Visit Provider Emergency Medicine
DX: R25.1 Tremor, unspecified (principal); G40.109 Localization-related (focal) (partial) symptomatic epilepsy and epileptic syndromes with simple partial seizures, not intractable, without status epilepticus; E78.00 Pure hypercholesterolemia, unspecified; I25.10 Atherosclerotic heart disease of native coronary artery without angina pectoris; S42.001K Fracture of unspecified part of right clavicle, subsequent encounter for fracture with nonunion; I10 Essential (primary) hypertension; Z86.718 Personal history of other venous thrombosis and embolism; Z90.49 Acquired absence of other specified parts of digestive tract; R53.83 Other fatigue; R06.09 Other forms of dyspnea; R19.7 Diarrhea, unspecified; R11.2 Nausea with vomiting, unspecified; R60.0 Localized edema; E86.0 Dehydration; I25.2 Old myocardial infarction; H02.401 Unspecified ptosis of right eyelid
CPT/HCPCS: 70450; 71045; 80048; 83880; 84484; 85025; 93005; 99284; A4216

== ENCOUNTER 2025-05-03 15:03 | Emergency (ER) | payer MEDICARE, OTHER, SELFPAY ==
[2025-05-03 15:07] VITALS: BP 114/64; PULSE 71; RESP 18; TEMP 36.8; O2SAT 91
[2025-05-03 15:10] VITALS: BMI 25.0
--- NOTE | 2025-05-03 15:27 | EX.ED.GENINJ ---
HPI History of Present Illness Chief Complaint: Laceration Detail of Chief Complaint: 3.5 cm laceration mid medial left leg/calf Informant: patient Onset/Context/Timing Onset: Yesterday (Laceration occurred yesterday at 0900) Mechanism/Context: Incised Location of pain/injuries: Left lower leg Quality of Pain: - (Not applicable) Location: Mid medial left leg Current Severity: Gone Maximum Severity: Mild Worsened by: Palpation Relieved by: Nothing Associated Symptoms Associated Symptoms: Negative for Parasthesias, Weakness, Loss of function, Inability to ambulate or Loss of consciousness Narrative Narrative: Patient is a 84-year-old female who sustained a laceration yesterday at 0900 doing craft work. She was seen last evening at urgent care. She had Steri-Strips applied. She is concerned because it still bleeding. She is on anticoagulant because of history of PEs. She is also concerned because of swelling proximally. She denies paresthesia, anesthesia or motor weakness. She denies constitutional symptoms of fever or chills. The drainage is bloody. Tetanus Immunization: 5-10 years Prior similar symptoms: Yes Recent Illness/Hospitalization: No PFSH PFSH Medical History Vaginal atrophy Malignant neoplasm of breast (female) Right clavicle fracture Leg edema Open wound of right lower extremity Contusion of right foot Kyphoscoliosis deformity of spine Bee sting Lumbar contusion Contusion of thoracic wall Pain of left lower extremity Contact with and (suspected) exposure to other viral communicable diseases Contusion of left wrist Left elbow contusion Contusion of left shoulder Scalp contusion Injury of left elbow Injury of left shoulder Presence of stent in coronary artery (~1989) Atherosclerotic heart disease of [place] coronary artery without angina pectoris Essential hypertension Influenza A Health care maintenance Falls frequently Cancer Depression Dementia Walker as ambulation aid Arthritis Bladder disease Low iron DVT (deep venous thrombosis) High cholesterol Restless legs Back pain TIA (transient ischemic attack) Seizures Difficulty swallowing Gastric reflux Non-smoker Asthma Shortness of breath on exertion Hx of echocardiogram History of stress test Hypertension Cardiology follow-up encounter History of heart attack Hypertension aquired autoimmune encephalopathy h/o back surgery Heart disease Dementia Partial complex seizures Home Medications ?Medication ?Instructions ?Recorded ?Last Taken ?Type L.acidophil-L.casei-B.bifid-B.longum-FOS 1 cap PO DAILY Supplement 09/02/21 02/05/25 History 2 billion cell-50 mg capsule (Probiotic Blend) aspirin 81 mg tablet,delayed 81 mg PO DAILY 01/10/22 02/05/25 History release (Adult Aspirin Regimen) d-mannose 500 mg capsule 500 mg PO DAILY 06/07/22 02/05/25 History famotidine 10 mg tablet 10 mg PO BID 06/07/22 02/05/25 History multivitamin 1 tab PO DAILY 06/07/22 02/05/25 History mirabegron 50 mg tablet,extended 50 mg PO QHS Check with primary 01/29/23 02/05/25 History release 24 hr (Myrbetriq) doctor syringes BD ECLIPSE 04/11/23 Unknown History latanoprost 0.005 % eye drops 1 drp ophthalmic (eye) DAILY 08/13/23 02/05/25 History (Xalatan) nitroglycerin 0.4 mg sublingual 0.4 mg sublingual Q5-15M PRN chest 11/12/23 Unknown Rx tablet pain #25 tabs BD Sry/needle eclips See Rx Instructions IM .COMPLEX 02/23/24 Unknown Rx #12 ea azelastine 137 mcg (0.1 %) nasal 2 spray intranasal BID 03/16/24 Unknown History spray cetirizine 10 mg capsule (Zyrtec) 10 mg PO DAILY PRN allergy symptoms 03/16/24 Unknown History fluticasone propionate 50 1 spray intranasal DAILY 03/16/24 02/05/25 History mcg/actuation nasal spray,suspension (Allergy Relief (fluticasone)) PEP device #1 ea 04/06/24 Unknown Rx apixaban 5 mg tablet (Eliquis) 5 mg PO BID #180 tabs 06/08/24 02/05/25 Rx atorvastatin 40 mg tablet See Rx Instructions .Route 06/08/24 02/05/25 Rx .COMPLEX #90 tabs levothyroxine 50 mcg tablet 50 mcg PO DAILY Thyroid #90 tabs 06/08/24 02/05/25 Rx memantine 10 mg tablet 10 mg PO BID Alzheimer's #180 tabs 06/08/24 02/05/25 Rx pramipexole 0.5 mg tablet 0.5 mg PO BID #180 tabs 06/08/24 02/05/25 Rx vortioxetine 20 mg tablet 20 mg PO DAILY DEPRESSION #90 tabs 06/08/24 02/05/25 Rx (Trintellix) brimonidine 0.2 % eye drops 1 drp ophthalmic (eye) QHS 10/14/24 02/05/25 History olopatadine 0.6 % nasal spray 2 spray intranasal DAILY 10/14/24 Unknown History pantoprazole 40 mg tablet,delayed 40 mg PO DAILY 10/14/24 02/05/25 History release potassium chloride 20 mEq 20 meq PO DAILY 10/14/24 02/05/25 History tablet,extended release(part/cryst) (Klor-Con M) furosemide 20 mg tablet 10 mg (1/2 x 20 mg) PO DAILY PRN 11/23/24 Unknown Rx edema #30 tabs denosumab 60 mg/mL subcutaneous 60 mg subcut [id number] #1 mL 01/24/25 Unknown Rx syringe (Prolia) gabapentin 100 mg capsule 300 mg PO QHS restless leg(s) 02/03/25 02/05/25 History donepezil 10 mg tablet 10 mg PO DAILY 02/06/25 02/05/25 History lacosamide 100 mg tablet (Vimpat) 100 mg PO BID 20 days #40 tabs 02/08/25 Unknown Rx lidocaine 5 % topical patch 1 patch topical DAILY #15 ea 02/08/25 Unknown Rx acetaminophen 500 mg capsule 500 mg PO Q6H PRN 02/22/25 Unknown History dorzolamide 22.3 mg-timolol 6.8 1 drp ophthalmic (eye) BID 02/22/25 Unknown History mg/mL eye drops ondansetron 4 mg disintegrating 4 mg PO Q4H PRN 02/22/25 Unknown History tablet sennosides 8.6 mg-docusate sodium 1 tab-cap PO QHS 02/22/25 Unknown History 50 mg tablet (Senna Plus) albuterol sulfate 2.5 mg/3 mL 2.5 mg (3 mL) inhalation Q6H PRN 03/10/25 Unknown Rx (0.083 %) solution for nebulization Sob &/Or Wheezing #180 mL hydromorphone 2 mg tablet mg PO 03/14/25 Unknown History hydromorphone 2 mg tablet 2 mg PO Q6H 03/22/25 Unknown History (Dilaudid) mirabegron 50 mg tablet,extended See Rx Instructions PO QDAY #180 03/22/25 Unknown Rx release 24 hr (Myrbetriq) tabs ergocalciferol (vitamin D2) 1,250 1,250 mcg PO Q7D #12 caps 04/13/25 Unknown Rx mcg (50,000 unit) capsule (Vitamin D2) Allergy/AdvReac Type Severity Reaction Status Date / Time doxycycline Allergy Mild Vomiting Verified 05/03/25 15:07 acetaminophen (From Percocet) Allergy unknown Verified 05/03/25 15:07 lamotrigine (From Lamictal) Allergy Lip Verified 05/03/25 15:07 Swelling moxifloxacin HCl (From Allergy Other Verified 05/03/25 15:07 Avelox) propoxyphene napsylate (From Allergy Other Verified 05/03/25 15:07 Darvocet-N) zolpidem (From Ambien) Allergy unknown Verified 05/03/25 15:07 hydrocodone AdvReac Severe Confusion Verified 05/03/25 15:07 oxycodone (From Percocet) AdvReac Severe Confusion Verified 05/03/25 15:07 zolpidem tartrate (From AdvReac Other Verified 05/03/25 15:07 Ambien) Family History Mother CVA (cerebral vascular accident) Arthritis Father Myocardial infarction, Onset Age: 40 Alcoholism Hypertension Sister Anemia Grandmother Bowel disease Osteoporosis Ovarian cancer Other Heart disease Surgical History H/O: hysterectomy History of repair of hiatal hernia History of cholecystectomy History of hernia surgery Presence of coronary angioplasty implant and graft (~1989) History of hammer toe correction History of lumbar laminectomy History of carpal tunnel release History of tonsillectomy and adenoidectomy History of lumpectomy of left breast History of cardiac catheterization History of esophagogastroduodenoscopy (EGD) Hx of colonoscopy Hx of ventral hernia repair Hx of cataract extraction History of laryngoscopy History of appendectomy H/O kyphoplasty Social History household members: spouse housing: house Smoking Status: Never smoker alcohol intake: current alcohol intake frequency: a few times a week Alcohol type: wine substance use type: does not use caffeine: Yes Type: coffee Number of servings: 1 what type of physical activity do you participate in: other details: PT 3x weekly frequency: 3-4 times per week do you feel safe at home: Yes ROS ROS ED Constitutional Constitutional ED: Denies chills, fever(s), subjective, sweats or weight loss Integumentary Reports other Details: Laceration and hematoma left leg ; Denies Abrasions or rash Neurologic Neurologic: Denies paresthesias Hematologic/Lymphatic Hematologic/Lymphatic: Reports easy bleeding and easy bruising EXAM Physical Exam Const Vital Signs: 05/03/25 15:07 Temperature 98.3 F Temperature Source Temporal Pulse Rate 71 Respiratory Rate 18 Blood Pressure 114/64 Blood Pressure Mean 80 Pulse Ox 91 Oxygen Delivery Method Room Air Positive well nourished and well developed General Appearance ED: well developed and NAD HEENT atraumatic Eyes PERRL and EOMs intact bilaterally Resp normal respiratory effort Cardio regular rhythm Rate: regular rate Extremity Negative for normal to inspection Extremity Narrative: Patient has a 3.5 cm laceration. There is some oozing of blood. The Steri-Strips are no longer adherent proximally. These were removed. Patient was told that we would put tincture of benzoin on reapplied the strips and a compressive dressing. 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 Neuro oriented x3, CN's II-XII intact bilaterally and moves all extremities Psych mental status grossly normal and thought process normal Skin Skin Narrative: Wound that is not infected i.e. erythema, warmth, induration fluctuance. There is a hematoma superior to the laceration. MDM MDM MDM Narrative Medical decision making narrative: Nurse applied tincture of benzoin inferior and superior to the wound. The wound was approximated by me. The nurse applied the Steri-Strips. There were multiple strips applied. Patient tolerated. Dressing was then applied with Coban and. Since she is on anticoagulant we will have her not remove the dressing for 48 hours. At this point suturing is not applicable. Discharge Plan Triage Chief Complaint: Laceration ED Provider: Chu Horowitz Dx/Rx/DC Orders Clinical Impression: Laceration of left lower extremity, Hematoma of left lower leg, Anticoagulant long-term use Instructions: ED Laceration, Old: Not Sutured Prescriptions: No Action Myrbetriq 50 mg tablet extended release 24 hr 50 mg PO QHS aspirin [Adult Aspirin Regimen] 81 mg tablet,delayed release (DR/EC) 81 mg PO DAILY multivitamin Tablet 1 tab PO DAILY famotidine 10 mg tablet 10 mg PO BID d-mannose 500 mg capsule 500 mg PO DAILY latanoprost [Xalatan] 0.005 % drops 1 drp ophthalmic (eye) DAILY nitroglycerin 0.4 mg tablet, sublingual 0.4 mg sublingual Q5-15M PRN (Reason: chest pain) Qty: 25 3RF Rx Instructions: do not exceed 3 doses per episode azelastine 137 mcg (0.1 %) spray,non-aerosol 2 spray intranasal BID Patient Comments: [NO ORIGINAL SIG] fluticasone propionate [Allergy Relief (fluticasone)] 50 mcg/actuation spray,suspension 1 spray intranasal DAILY Rx Instructions: administer into each nostril Zyrtec 10 mg capsule 10 mg PO DAILY PRN (Reason: allergy symptoms) pantoprazole 40 mg tablet,delayed release (DR/EC) 40 mg PO DAILY potassium chloride [Klor-Con M20] 20 mEq tablet,ER particles/crystals 20 meq PO DAILY brimonidine 0.2 % drops 1 drp ophthalmic (eye) QHS olopatadine 0.6 % spray,non-aerosol 2 spray intranasal DAILY Patient Comments: [NO ORIGINAL SIG] sennosides-docusate sodium [Senna Plus] 8.6-50 mg tablet 1 tab-cap PO QHS dorzolamide-timolol 22.3-6.8 mg/mL drops 1 drp ophthalmic (eye) BID ondansetron 4 mg tablet,disintegrating 4 mg PO Q4H PRN acetaminophen 500 mg capsule 500 mg PO Q6H PRN hydromorphone [Dilaudid] 2 mg tablet 2 mg PO Q6H mirabegron [Myrbetriq] 50 mg tablet extended release 24 hr See Rx Instructions PO QDAY Qty: 180 3RF Rx Instructions: 50mg tabs, take 2 tabs orally daily; 2 tabs once daily hydromorphone 2 mg tablet PO Probiotic Blend 2 billion cell-50 mg Capsule 1 cap PO DAILY donepezil 10 mg tablet 10 mg PO DAILY lidocaine 5 % Adhesive Patch,Medicated 1 patch topical DAILY Qty: 15 0RF Protocol: *Topical Application Instructions APPLICATION INSTRUCTIONS: right shoulder, anterior. gabapentin 100 mg capsule 300 mg PO QHS (DME) syringes BD ECLIPSE See Rx Instructions .Route .MEDSUPPLY Rx Instructions: Bd SYR/leticia Eclipse 3ml #5782 BD Sry/needle eclips See Rx Instructions IM .COMPLEX Qty: 12 0RF Rx Instructions: intramuscularly; 3ml #9568 uses 1 a month (DME) PEP device See Rx Instructions .ROUTE .MEDSUPPLY Qty: 1 0RF Rx Instructions: with training atorvastatin 40 mg tablet See Rx Instructions .ROUTE .COMPLEX Qty: 90 3RF Dose Instruction: TAKE 1 TABLET DAILY Rx Instructions: TAKE 1 TABLET DAILY Eliquis 5 mg tablet 5 mg PO BID Qty: 180 3RF levothyroxine 50 mcg tablet 50 mcg PO DAILY Qty: 90 3RF memantine 10 mg tablet 10 mg PO BID Qty: 180 3RF pramipexole 0.5 mg tablet 0.5 mg PO BID Qty: 180 3RF Trintellix 20 mg tablet 20 mg PO DAILY Qty: 90 3RF furosemide 20 mg tablet 10 mg PO DAILY PRN (Reason: edema) Qty: 30 0RF Prolia 60 mg/mL syringe 60 mg subcut [id number] Qty: 1 5RF lacosamide [Vimpat] 100 mg tablet 100 mg PO BID 20 Days Qty: 40 3RF albuterol sulfate 2.5 mg /3 mL (0.083 %) solution for nebulization 2.5 mg inhalation Q6H PRN (Reason: Sob &/Or Wheezing) Qty: 180 6RF ergocalciferol (vitamin D2) [Vitamin D2] 1,250 mcg (50,000 unit) capsule 1,250 mcg PO Q7D Qty: 12 3RF Primary Care Provider: Yokasta Perry Referrals: Yokasta Perry MD [Primary Care Provider] - As Needed Activity Restrictions/Additional Instructions: 1. Keep the wound clean and dry for the next 48 to 72 hours. 2. Do not remove the dressing for 48 hours 3. The Steri-Strips will probably fall off within 7 to 10 days 4. If there is any concern for infection see your doctor or return to the emergency department Print Language: Chadian Disposition Disposition: Home, Self Care
[2025-05-03 15:54] VITALS: BP 140/79; PULSE 67; RESP 89; TEMP 36.8; O2SAT 93
== END 2025-05-03 15:59 | disposition home or self-care (01) ==
PROVIDERS: Emergency Provider Emergency Medicine; PCP Internal Medicine; Visit Provider Emergency Medicine
DX: S81.812D Laceration without foreign body, left lower leg, subsequent encounter (principal); E78.00 Pure hypercholesterolemia, unspecified; Z86.718 Personal history of other venous thrombosis and embolism; I10 Essential (primary) hypertension; I25.10 Atherosclerotic heart disease of native coronary artery without angina pectoris; M79.662 Pain in left lower leg; Z79.01 Long term (current) use of anticoagulants; Z85.3 Personal history of malignant neoplasm of breast; Z95.5 Presence of coronary angioplasty implant and graft; I25.2 Old myocardial infarction; Z90.710 Acquired absence of both cervix and uterus; Z90.49 Acquired absence of other specified parts of digestive tract; Z86.711 Personal history of pulmonary embolism; Z86.73 Personal history of transient ischemic attack (TIA), and cerebral 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; X58.XXXD Exposure to other specified factors, subsequent encounter
CPT/HCPCS: 99282

== ENCOUNTER 2025-05-07 12:14 | Emergency (ER) | payer MEDICARE, OTHER, SELFPAY ==
[2025-05-07 12:15] VITALS: BP 132/68; PULSE 73; RESP 18; TEMP 36.3; O2SAT 93
--- NOTE | 2025-05-07 12:21 | ED.VIS.LOWEX ---
HPI History of Present Illness HPI Narrative: Patient presents for a wound check to her left lower leg. Patient states she was seen here 4 days ago for a laceration to her lower leg. Patient had Steri-Strips applied at that time. Patient states she applied a nonstick dressing this morning. Patient states she went to change it today and it was stuck to her leg. Patient was afraid to remove it because of the bleeding. Patient states that her primary care physician told her to hold her Eliquis. Patient has been off of this for 2 days. Patient denies any paresthesias or weakness. Patient denies any redness or swelling. Patient denies any fevers or chills. Chief Complaint: Wound Check Onset/Context/Timing Onset: Today Context: Sudden Onset Timing: Continuous Location: Left lower leg Worsened by: Nothing Relieved by: Nothing Associated Symptoms Associated Symptoms: Negative for Parasthesia, Weakness or Loss of Funtion Narrative Tetanus Immunization: <5 years [facility] Medical History Vaginal atrophy Malignant neoplasm of breast (female) Right clavicle fracture Leg edema Open wound of right lower extremity Contusion of right foot Kyphoscoliosis deformity of spine Bee sting Lumbar contusion Contusion of thoracic wall Pain of left lower extremity Contact with and (suspected) exposure to other viral communicable diseases Contusion of left wrist Left elbow contusion Contusion of left shoulder Scalp contusion Injury of left elbow Injury of left shoulder Presence of stent in coronary artery (~1989) Atherosclerotic heart disease of [place] coronary artery without angina pectoris Essential hypertension Influenza A Health care maintenance Falls frequently Cancer Depression Dementia Walker as ambulation aid Arthritis Bladder disease Low iron DVT (deep venous thrombosis) High cholesterol Restless legs Back pain TIA (transient ischemic attack) Seizures Difficulty swallowing Gastric reflux Non-smoker Asthma Shortness of breath on exertion Hx of echocardiogram History of stress test Hypertension Cardiology follow-up encounter History of heart attack Hypertension aquired autoimmune encephalopathy h/o back surgery Heart disease Dementia Partial complex seizures Home Medications ?Medication ?Instructions ?Recorded ?Last Taken ?Type L.acidophil-L.casei-B.bifid-B.longum-FOS 1 cap PO DAILY Supplement 09/02/21 02/05/25 History 2 billion cell-50 mg capsule (Probiotic Blend) aspirin 81 mg tablet,delayed 81 mg PO DAILY 01/10/22 02/05/25 History release (Adult Aspirin Regimen) d-mannose 500 mg capsule 500 mg PO DAILY 06/07/22 02/05/25 History famotidine 10 mg tablet 10 mg PO BID 06/07/22 02/05/25 History multivitamin 1 tab PO DAILY 06/07/22 02/05/25 History mirabegron 50 mg tablet,extended 50 mg PO QHS Check with primary 01/29/23 02/05/25 History release 24 hr (Myrbetriq) doctor syringes BD ECLIPSE 04/11/23 Unknown History latanoprost 0.005 % eye drops 1 drp ophthalmic (eye) DAILY 08/13/23 02/05/25 History (Xalatan) nitroglycerin 0.4 mg sublingual 0.4 mg sublingual Q5-15M PRN chest 11/12/23 Unknown Rx tablet pain #25 tabs BD Sry/needle eclips See Rx Instructions IM .COMPLEX 02/23/24 Unknown Rx #12 ea azelastine 137 mcg (0.1 %) nasal 2 spray intranasal BID 03/16/24 Unknown History spray cetirizine 10 mg capsule (Zyrtec) 10 mg PO DAILY PRN allergy symptoms 03/16/24 Unknown History fluticasone propionate 50 1 spray intranasal DAILY 03/16/24 02/05/25 History mcg/actuation nasal spray,suspension (Allergy Relief (fluticasone)) PEP device #1 ea 04/06/24 Unknown Rx apixaban 5 mg tablet (Eliquis) 5 mg PO BID #180 tabs 06/08/24 02/05/25 Rx atorvastatin 40 mg tablet See Rx Instructions .Route 06/08/24 02/05/25 Rx .COMPLEX #90 tabs levothyroxine 50 mcg tablet 50 mcg PO DAILY Thyroid #90 tabs 06/08/24 02/05/25 Rx memantine 10 mg tablet 10 mg PO BID Alzheimer's #180 tabs 06/08/24 02/05/25 Rx pramipexole 0.5 mg tablet 0.5 mg PO BID #180 tabs 06/08/24 02/05/25 Rx vortioxetine 20 mg tablet 20 mg PO DAILY DEPRESSION #90 tabs 06/08/24 02/05/25 Rx (Trintellix) brimonidine 0.2 % eye drops 1 drp ophthalmic (eye) QHS 10/14/24 02/05/25 History olopatadine 0.6 % nasal spray 2 spray intranasal DAILY 10/14/24 Unknown History pantoprazole 40 mg tablet,delayed 40 mg PO DAILY 10/14/24 02/05/25 History release potassium chloride 20 mEq 20 meq PO DAILY 10/14/24 02/05/25 History tablet,extended release(part/cryst) (Klor-Con M) furosemide 20 mg tablet 10 mg (1/2 x 20 mg) PO DAILY PRN 11/23/24 Unknown Rx edema #30 tabs denosumab 60 mg/mL subcutaneous 60 mg subcut [id number] #1 mL 01/24/25 Unknown Rx syringe (Prolia) gabapentin 100 mg capsule 300 mg PO QHS restless leg(s) 02/03/25 02/05/25 History donepezil 10 mg tablet 10 mg PO DAILY 02/06/25 02/05/25 History lacosamide 100 mg tablet (Vimpat) 100 mg PO BID 20 days #40 tabs 02/08/25 Unknown Rx lidocaine 5 % topical patch 1 patch topical DAILY #15 ea 02/08/25 Unknown Rx acetaminophen 500 mg capsule 500 mg PO Q6H PRN 02/22/25 Unknown History dorzolamide 22.3 mg-timolol 6.8 1 drp ophthalmic (eye) BID 02/22/25 Unknown History mg/mL eye drops ondansetron 4 mg disintegrating 4 mg PO Q4H PRN 02/22/25 Unknown History tablet sennosides 8.6 mg-docusate sodium 1 tab-cap PO QHS 02/22/25 Unknown History 50 mg tablet (Senna Plus) albuterol sulfate 2.5 mg/3 mL 2.5 mg (3 mL) inhalation Q6H PRN 03/10/25 Unknown Rx (0.083 %) solution for nebulization Sob &/Or Wheezing #180 mL hydromorphone 2 mg tablet mg PO 03/14/25 Unknown History hydromorphone 2 mg tablet 2 mg PO Q6H 03/22/25 Unknown History (Dilaudid) mirabegron 50 mg tablet,extended See Rx Instructions PO QDAY #180 03/22/25 Unknown Rx release 24 hr (Myrbetriq) tabs ergocalciferol (vitamin D2) 1,250 1,250 mcg PO Q7D #12 caps 04/13/25 Unknown Rx mcg (50,000 unit) capsule (Vitamin D2) Allergy/AdvReac Type Severity Reaction Status Date / Time doxycycline Allergy Mild Vomiting Verified 05/07/25 12:15 acetaminophen (From Percocet) Allergy unknown Verified 05/07/25 12:15 lamotrigine (From Lamictal) Allergy Lip Verified 05/07/25 12:15 Swelling moxifloxacin HCl (From Allergy Other Verified 05/07/25 12:15 Avelox) propoxyphene napsylate (From Allergy Other Verified 05/07/25 12:15 Darvocet-N) zolpidem (From Ambien) Allergy unknown Verified 05/07/25 12:15 hydrocodone AdvReac Severe Confusion Verified 05/07/25 12:15 oxycodone (From Percocet) AdvReac Severe Confusion Verified 05/07/25 12:15 zolpidem tartrate (From AdvReac Other Verified 05/07/25 12:15 Ambien) Family History Mother CVA (cerebral vascular accident) Arthritis Father Myocardial infarction, Onset Age: 40 Alcoholism Hypertension Sister Anemia Grandmother Bowel disease Osteoporosis Ovarian cancer Other Heart disease Surgical History H/O: hysterectomy History of repair of hiatal hernia History of cholecystectomy History of hernia surgery Presence of coronary angioplasty implant and graft (~1989) History of hammer toe correction History of lumbar laminectomy History of carpal tunnel release History of tonsillectomy and adenoidectomy History of lumpectomy of left breast History of cardiac catheterization History of esophagogastroduodenoscopy (EGD) Hx of colonoscopy Hx of ventral hernia repair Hx of cataract extraction History of laryngoscopy History of appendectomy H/O kyphoplasty Social History household members: spouse housing: house Smoking Status: Never smoker alcohol intake: current alcohol intake frequency: a few times a week Alcohol type: wine substance use type: does not use caffeine: Yes Type: coffee Number of servings: 1 what type of physical activity do you participate in: other details: PT 3x weekly frequency: 3-4 times per week do you feel safe at home: Yes ROS ROS ED Constitutional Constitutional ED: Denies chills or fever(s) Eyes Eyes: Denies blurry vision or change in vision ENT ENT ED: Denies rhinorrhea or sore throat Cardiovascular Cardiovascular: Denies chest pain or palpitations Respiratory/Chest Respiratory/Chest: Denies cough or dyspnea Gastrointestinal Gastrointestinal: Denies nausea or vomiting Genitourinary Genitourinary ED: Denies dysuria or hematuria Musculoskeletal Musculoskeletal: Denies back pain or neck pain Integumentary Denies abscess or rash Neurologic Neurologic: Denies headache(s) or weakness Allergic/Immunologic Allergic/Immunologic ED: Denies mouth swelling or urticaria EXAM Physical Exam Const Vital Signs: 05/07/25 12:15 05/07/25 12:50 Temperature 97.3 F L 97.3 F L Temperature Source Temporal Pulse Rate 73 73 Respiratory Rate 18 18 Blood Pressure 132/68 H 132/68 H Blood Pressure Mean 89 89 Pulse Ox 93 93 Oxygen Delivery Method Room Air Positive well nourished and well developed General Appearance ED: well developed and NAD HEENT Reports moist mucous membranes normocephalic Extremity Extremity Narrative: There is a healing laceration over the medial but the left lower leg. There is minimal bleeding. Dressing is intact. Steri-Strips are intact. There is no surrounding erythema. There is no discharge or drainage noted. There is no calf tenderness. Neuro oriented x3, CN's II-XII intact bilaterally, moves all extremities and no sensory deficits noted Sensorium / Orientation: alert Motor Exam: strength 5/5 throughout Psych mental status grossly normal MDM MDM MDM Narrative Medical decision making narrative: The dressing was removed. There is minimal bleeding. Steri-Strips were intact. I do not feel these need to be changed at this time. The wound was cleaned and dressed. Patient was instructed to keep her leg elevated. Patient was instructed to follow-up with her primary care physician in 5 to 7 days. Patient and spouse understood and were agreeable with the plan. All questions were answered. History & Record Review Additional record(s) reviewed:: Prior ED visit Discharge Plan Triage Chief Complaint: Wound Check ED Provider: Vincent Morris Dx/Rx/DC Orders Clinical Impression: Laceration of left lower leg, Essential hypertension Instructions: ED Wound Check (No Infection) Prescriptions: No Action Myrbetriq 50 mg tablet extended release 24 hr 50 mg PO QHS aspirin [Adult Aspirin Regimen] 81 mg tablet,delayed release (DR/EC) 81 mg PO DAILY multivitamin Tablet 1 tab PO DAILY famotidine 10 mg tablet 10 mg PO BID d-mannose 500 mg capsule 500 mg PO DAILY latanoprost [Xalatan] 0.005 % drops 1 drp ophthalmic (eye) DAILY nitroglycerin 0.4 mg tablet, sublingual 0.4 mg sublingual Q5-15M PRN (Reason: chest pain) Qty: 25 3RF Rx Instructions: do not exceed 3 doses per episode azelastine 137 mcg (0.1 %) spray,non-aerosol 2 spray intranasal BID Patient Comments: [NO ORIGINAL SIG] fluticasone propionate [Allergy Relief (fluticasone)] 50 mcg/actuation spray,suspension 1 spray intranasal DAILY Rx Instructions: administer into each nostril Zyrtec 10 mg capsule 10 mg PO DAILY PRN (Reason: allergy symptoms) pantoprazole 40 mg tablet,delayed release (DR/EC) 40 mg PO DAILY potassium chloride [Klor-Con M20] 20 mEq tablet,ER particles/crystals 20 meq PO DAILY brimonidine 0.2 % drops 1 drp ophthalmic (eye) QHS olopatadine 0.6 % spray,non-aerosol 2 spray intranasal DAILY Patient Comments: [NO ORIGINAL SIG] sennosides-docusate sodium [Senna Plus] 8.6-50 mg tablet 1 tab-cap PO QHS dorzolamide-timolol 22.3-6.8 mg/mL drops 1 drp ophthalmic (eye) BID ondansetron 4 mg tablet,disintegrating 4 mg PO Q4H PRN acetaminophen 500 mg capsule 500 mg PO Q6H PRN hydromorphone [Dilaudid] 2 mg tablet 2 mg PO Q6H mirabegron [Myrbetriq] 50 mg tablet extended release 24 hr See Rx Instructions PO QDAY Qty: 180 3RF Rx Instructions: 50mg tabs, take 2 tabs orally daily; 2 tabs once daily hydromorphone 2 mg tablet PO Probiotic Blend 2 billion cell-50 mg Capsule 1 cap PO DAILY donepezil 10 mg tablet 10 mg PO DAILY lidocaine 5 % Adhesive Patch,Medicated 1 patch topical DAILY Qty: 15 0RF Protocol: *Topical Application Instructions APPLICATION INSTRUCTIONS: right shoulder, anterior. gabapentin 100 mg capsule 300 mg PO QHS (DME) syringes BD ECLIPSE See Rx Instructions .Route .MEDSUPPLY Rx Instructions: Bd SYR/leticia Eclipse 3ml #5782 BD Sry/needle eclips See Rx Instructions IM .COMPLEX Qty: 12 0RF Rx Instructions: intramuscularly; 3ml #[id number] uses 1 a month (DME) PEP device See Rx Instructions .ROUTE .MEDSUPPLY Qty: 1 0RF Rx Instructions: with training atorvastatin 40 mg tablet See Rx Instructions .ROUTE .COMPLEX Qty: 90 3RF Dose Instruction: TAKE 1 TABLET DAILY Rx Instructions: TAKE 1 TABLET DAILY Eliquis 5 mg tablet 5 mg PO BID Qty: 180 3RF levothyroxine 50 mcg tablet 50 mcg PO DAILY Qty: 90 3RF memantine 10 mg tablet 10 mg PO BID Qty: 180 3RF pramipexole 0.5 mg tablet 0.5 mg PO BID Qty: 180 3RF Trintellix 20 mg tablet 20 mg PO DAILY Qty: 90 3RF furosemide 20 mg tablet 10 mg PO DAILY PRN (Reason: edema) Qty: 30 0RF Prolia 60 mg/mL syringe 60 mg subcut [id number] Qty: 1 5RF lacosamide [Vimpat] 100 mg tablet 100 mg PO BID 20 Days Qty: 40 3RF albuterol sulfate 2.5 mg /3 mL (0.083 %) solution for nebulization 2.5 mg inhalation Q6H PRN (Reason: Sob &/Or Wheezing) Qty: 180 6RF ergocalciferol (vitamin D2) [Vitamin D2] 1,250 mcg (50,000 unit) capsule 1,250 mcg PO Q7D Qty: 12 3RF Primary Care Provider: Yokasta Perry Referrals: Yokasta Perry MD [Primary Care Provider, Internal Medicine - [facility]] - 5-7 Days Print Language: [place] Disposition Disposition: Home, Self Care Discharge Date/Time: 05/07/25 12:52
--- OUTSIDE RECORDS SUMMARY | 2025-05-07 12:36 | XMS RPT_ITS | CCD ---
Author Organization [facility]ini[facility] Care Team Providers Care Transition Assistant Name Role Phone Parvin COHEN, Bryant Sandoval Primary Care Provider [phone] Richard, Dr. Arun Muller Primary Care Provider Richard, Dr. Arun Muller Referring Provider Melisa CLIENT DELIVERY SPECIALIST, CLIENT DELIVERY SPECIALIST-C Sandra Attending Provider [phone] Dr. Kinza Laughlin Emergency Provider Dr. Luh [...] Richard, Dr. Arun Muller Referring Provider Melisa CLIENT DELIVERY SPECIALIST, CLIENT DELIVERY SPECIALIST-C Sandra Attending Provider Richard, Dr. Arun Muller Primary Care Provider Richard, Dr. Arun Muller Referring Provider Dr. Malachi Caal Attending Provider [phone] Melisa CLIENT DELIVERY SPECIALIST, CLIENT DELIVERY SPECIALIST-C Sandra Referring Provider [phone] Chema Perry MD Primary Care Provider [phone] Dr. Arun Ramos Chi Primary Care Provider Charity Dove Attending Provider Unavailable Dr. Chema Perry Attending Provider [phone] Dr. Arun Ramos Chi Referring Provider Dr. Malachi Caal Attending Provider Dr. Chema Perry Primary Care Provider Dr. Chema Perry Referring Provider [phone] Dr. James Elizabeth Attending Provider Melisa BROWN, BURAK Flores Attending Provider [phone] Adrian VALENCIA, PA Phillip Attending Provider Forrest Ortiz Attending Provider Unavailable Dr. Chema Perry Attending Provider 1([facility]) Dr. Rolando Griffith Attending Provider 1([facility])[phone] Sarbjit Kraus Attending Provider Dr. Chema Perry Primary Care Provider Dr. Chema Perry Primary Care Provider Dr. Chema Perry Attending Provider [phone] Lashonda VALENCIA, ERIK Vaughan Attending Provider [phone] Dr. Chema Perry Primary Care Provider Dr. Chema Perry Referring Provider 1([facility]) Chema Perry MD Primary Care Provider [phone] Dr. Chema Perry Primary Care Provider Dr. Chema Perry Referring Provider 1([facility])[phone] Lashonda VALENCIA PA Jd Vaughan Attending Provider Dr. Chema Perry Attending Provider [phone] BURAK Del Valle Attending Provider Dr. Rolando Griffith Attending Provider Dr. Vincent Smart Attending Provider ERIK Alonso Referring Provider Dr. Malachi Caal Attending Provider EIRK Jamison Attending Provider Dr. Sarbjit Kraus Attending [...] Provider Dr. Chema Perry Attending Provider Melisa CLIENT DELIVERY SPECIALIST, CLIENT DELIVERY SPECIALIST-C Sandra Attending Provider Dr. Chema Perry Primary Care Provider Dr. Chema Perry Attending Provider Dr. Chema Perry Referring Provider ERIK Alonso Attending Provider ERIK Jamison Attending Provider Dr. Rolando Griffith Attending Provider ERIK Alonso Attending Provider Roseann VALENCIA, PA Jerri Vaughan Referring Provider Dr. Chema Perry Primary Care Provider Dr. Chema Perry Referring Provider Lashonda VALENCIA PA Jd Vaughan Attending Provider Melisa BROWN, CLIENT DELIVERY SPECIALIST-C Sandra Attending Provider Roseann VALENCIA, PA Jerri [...] Provider Dr. Malachi Caal Attending Provider Kings BRWON, CLIENT DELIVERY SPECIALIST-C Tamiko Attending Provider Dr. Chema Perry Primary Care Provider Dr. Chema Perry Attending Provider Dr. Vincent Smart Attending Provider Chema Perry MD Primary Care Provider [phone] Porfirio Carreon Unavailable Stephanie Brush MD Unavailable Sourav Marcial MD Unavailable [phone] Chema Perry MD Primary Care Provider Porfirio Carreon DO Unavailable Chace COHEN, Chema Vaughan Primary Care Provider Chace COHEN, Dr. Bear Primary Care Provider Chace COHEN, Dr. Bear Referring Provider Dr. Christopher Turk DO Attending Provider Chace COHEN, Dr. Bear Attending Provider Nacho COHEN, Dr. Marshall Attending Provider Rupert NAVARRETE, Dr. Uriostegui Attending Provider Dr. Susan Emery DO Emergency Provider Sandra Bryan Attending Provider Burke NAVARRETE, Dr. White Attending Provider Chace COHEN, Dr. Bear Primary Care Provider Chace COHEN, Dr. Bear Attending Provider Chace COHEN, Dr. Bear Referring Provider MARII, LAISHA Referring Unavailable CHEMA PERRY Primary Care Unavailable ZGODINSKI, LAISHA Referring Unavailable CHACE, CHEMA Vaughan Primary Care Unavailable ZGOJAIMESKI, LAISHA Referring Unavailable CHACE, CHEMA Vaughan Primary Care Unavailable ZGOJAIMESKI, LAISHA Referring Unavailable CHACE, CHEMA M Primary Care Unavailable ZGOJAIMESKI, LAISHA Referring Unavailable CHACE, CHEMA Vaughan Primary Care Unavailable Chace COHEN, Dr. Bear Primary Care Provider Dr. Isam Bustamante DO Emergency Provider Dr. Kana Whitt DO Emergency Provider [phone] Damien Burleson MD Attending Provider Conrado NAVARRETE, Dr. Kaur Admit Provider Dr. Vincent Camp DO Attending Provider Dr. Vincent Camp DO Admit Provider Dr. Vincent Camp DO Attending Provider Damien Burleson MD Other Provider Conrado NAVARRETE, Dr. Kaur Other Provider Chace COHEN, Dr. Bear Primary Care Provider Chace COHEN, Dr. Bear Attending Provider Chace COHEN, Dr. Bear Referring Provider Robby NAVARRETE, Dr. Ashby Attending Provider Andmaksim NAVARRETE, Dr. Ashby Emergency Provider Jose Eduardo NAVARRETE, Dr. Roger Emergency Provider Damien Burleson MD Attending Provider Conrado NAVARRETE, Dr. Kaur Admit Provider Dr. Vincent Camp DO Attending Provider Damien Burleson MD Other Provider Conrado NAVARRETE, Dr. Kaur Other Provider aNcho COHEN, Dr. Marshall Attending Provider Conrado NAVARRETE, Dr. Kaur Referring Provider Bryant Melendrez MD Attending Provider Unavaila ble Kvng CLIENT DELIVERY SPECIALIST-C, Susana Attending Provider Dr. Vincent Camp DO Referring Provider Kvng CLIENT DELIVERY SPECIALIST-C, Susana Attending Provider Chace COHEN, Dr. Bear Primary Care Provider Chace COHEN, Dr. Bear Attending Provider Chace COHEN, Dr. Bear Referring Provider Thony COHEN, Dr. Bruce Attending Provider [phone] Kalin COHEN, Dr. Hernandez Emergency Provider Kvng CLIENT DELIVERY SPECIALIST-C, Susana Referring Provider Kalin COHEN, Dr. Hernandez Attending Provider Thony COHEN, Dr. Bruce Attending Provider [phone] Parvin COHEN, Dr. Hurtdao Attending Provider LAISHA LIZARRAGA Referring Unavailable CHACE, CHEMA M Primary Care Unavailable Carlos Manuel COHEN, Dr. Sage Emergency Provider [phone] DE PAZ, ANILA Referring Unavailable CHACE, CHEMA M Primary Care Unavailable QUEENER, DENICE Attending Unavailable QUEENER, DENICE Referring Unavailable CHACE, CHEMA M Primary Care Unavailable HUMZA CAMEJO Attending Unavailable CHACE, CHEMA M Primary Care Unavailable DE PAZ, ANILA Referring Unavailable DE PAZ, ANILA Attending Unavailable CHACE, CHEMA M Primary Care Unavailable LAISHA LIZARRAGA Attending Unavailable LAISHA LIZARRAGA Referring Unavailable CHACE, CHEMA M Primary Care Unavailable CHACE, CHEMA M Primary Care Unavailable DE PAZ, ANILA Referring Unavailable DE PAZ, ANILA Admitting Unavailable DE PAZ, ANILA Attending Unavailable DE PAZ, ANILA Referring Unavailable CHACE, CHEMA M Primary Care Unavailable HUMZA CAMEJO Attending Unavailable CHACE, CHEMA M Primary Care Unavailable CHRISTOPHER FULTON Attending Unavailable DE PAZ, ANILA Referring Unavailable CHACE, CHEMA M Primary Care Unavailable CHACE, CHEMA M Primary Care Unavailable DE PAZ, ANILA Referring Unavailable CHACE, CHEMA M Primary Care Unavailable LAISHA LIZARRAGA Attending Unavailable CHACE, CHEMA M Primary Care Unavailable DE PAZ, ANILA Referring Unavailable CHACE, CHEMA M Primary Care Unavailable SOURAV MARCIAL Attending Unavailable CHACE, CHEMA M Primary Care Unavailable YOUNG LORD Attending Unavailable CHACE, CHEMA M Primary Care Unavailable LUH DEAN Attending Unavailable QUEENER, DNEICE Referring Unavailable CHACE, CHEMA M Primary Care Unavailable IZABELLA QUILES Attending Unavailable SUSAN SRINIVASAN Referring Unavailable CHACE, CHEMA M Primary Care Unavailable QUEENER, DENICE Referring Unavailable CHACE, CHEMA M Primary Care Unavailable DE PAZ, ANILA Attending Unavailable CHACE, CHEMA M Primary Care Unavailable LAISHA LIZARRAGA Attending Unavailable CHEMA PERRY M Primary Care Unavailable [facility], ANILA Referring Unavailable CHACE, CHEMA M Primary Care Unavailable [facility], [facility] Referring Unavailable CHACE, CHEMA M Primary Care Unavailable [facility], [facility] Referring Unavailable CHACE, CHEMA M Primary Care Unavailable CHACE, CHEMA M Primary Care Unavailable [facility], [facility] Admitting Unavailable [facility], [facility] Attending Unavailable [facility], [facility] Referring Unavailable CHACE, CHEMA M Primary Care Unavailable NAHUM HERNANDEZ Attending Unavailable CHEMA PERRY M Primary Care Unavailable SUSAN SQUIRES Attending Unavailable CHACECHEMA SAUL M Primary Care Unavailable CHACECHEMA SAUL M Referring Unavailable [facility], [facility] Attending Unavailable CHACE, CHEMA M Primary Care Unavailable DUNG, QARAB MARLA Referring Unavailable CHACE, CHEMA M Primary Care Unavailable [facility], [facility] Referring Unavailable CHACE, CHEMA M Primary Care Unavailable [facility], [facility] Referring Unavailable CHACE, CHEMA M Primary Care Unavailable [facility], [facility] Attending Unavailable SUSAN SQUIRES Referring Unavailable CHACECHEMA WOODSON M Primary Care Unavailable CHACECHEMA SAUL M Primary Care Unavailable [facility], [facility] Referring Unavailable [facility], [facility] Attending Unavailable DENICE JACOBS Referring Unavailable CHACEPATRICIA WOODSONEN M Primary Care Unavailable DENICE JACOBS Attending Unavailable CHEMA PERRY M Primary Care Unavailable ZLAISHA COLIN Referring Unavailable [facility], [facility] Referring Unavailable DUNG, QARAB MARLA Attending Unavailable PATRICIA PERRYEN M Primary Care Unavailable LAISHA LIZARRAGA Attending Unavailable CHACE, CHEMA M Primary Care Unavailable SARAH LAISHA Referring Unavailable DUNG, QARAB MARLA Referring Unavailable CHACE, CHEMA M Primary Care Unavailable ESTELLE HODGES Attending Unavailabl e CHEMA PERRY M Primary Care Unavailable Chace, Chema Primary Care Unavailable Susan Emery Attending Unavailable Chema Perry Primary Care Unavailable Susan Emery Attending Unavailable Chace, Chema Primary Care Unavailable Chace, Chema Referring Unavailable Chema Perry Attending Unavailable Chace, Chema Primary Care Unavailable Isma Bustamante Attending Unavailable [place] OLS, Susana Referring Unavailable [place] OLS, Susana Attending Unavailable Chace, Chema Primary Care Unavailable Chace, Chema Primary Care Unavailable Stephanie Cotter Attending Unavailable Chace, Chema Primary Care Unavailable David Gagnon Attending Unavailable Christopher Turk Attending Unavailable Chace, Chema Primary Care Unavailable Chace, Chema Referring Unavailable BorrusoChristopher Attending Unavailable Chace, Chema Primary Care Unavailable Chace, Chema Primary Care Unavailable Chace, Chema Attending Unavailable Chace, Chema Primary Care Unavailable Melisa CLIENT DELIVERY SPECIALIST, Sandra Attending Unavailable Chace, Chema Referring Unavailable Chace, Chema Primary Care Unavailable Roseann VALENCIA, Jerri Vaughan Attending Unavail able Chace, Chema Referring Unavailable Mollison, Damien Consulting Unavailable Mollison, Damien Attending Unavailable Jopperi, Vincent Admitting Unavailable Chace, Chema Primary Care Unavailable Jopperi, Vincent Consulting Unavailable Nacho, [place] Attending Unavailable Chace, Chema Primary Care Unavailable Chace, Chema Referring Unavailable Jopperi, Vincent Referring Unavailable Chace, Chema Primary Care Unavailable Nacho, [place] Attending Unavailable Chace, Chema Primary Care Unavailable Chace, Chema Referring Unavailable Chace, Chema Attending Unavailable Bryant Schwab Attending Unavailabl e Chace, Chema Primary Care Unavailable [place] OLS, Susana Attending Unavailable Chace, Chema Primary Care Unavailable Mollison, Damien Attending Unavailable Jopperi, Vincent Referring Unavailable Chace, Chema Primary Care Unavailable Christopher Turk Attending Unavailable Chace, Chema Primary Care Unavailable Chace, Chema Referring Unavailable Mollison, Damien Attending Unavailable Chace, Chema Referring Unavailable Chace, Chema Primary Care Unavailable Nacho, Rolando Attending Unavailable Mollison, Damien Consulting Unavailable Jopperi, Vincent Attending Unavailable Jopperi, Vincent Admitting Unavailable Chace, Chema Primary Care Unavailable Chace, Chema Primary Care Unavailable Ulices Horowitzo Attending Unavailable Chace, Chema Primary Care Unavailable Chace, Chema Attending Unavailable Chace, Chema Referring Unavailable Chace, Chema Primary Care Unavailable Chace, Chema Attending Unavailable Nacho, [place] Attending Unavailable Chace, Chema Primary Care Unavailable Nacho, Rolando Attending Unavailable Chace, Chema Primary Care Unavailable [place] CLIENT DELIVERY SPECIALIST, Susana Attending Unavailable Chace, Chema Primary Care Unavailable [place] CLIENT DELIVERY SPECIALIST, Susana Attending Unavailable Chace, Chema Primary Care Unavailable Chace, Chema Primary Care Unavailable [place] CLIENT DELIVERY SPECIALIST, Susana Attending Unavailable Chace, Chema Primary Care Unavailable Chace, Chema Attending Unavailable Chace, Chema Primary Care Unavailable Janis Bhandari Attending Unavailable Chace, Chema Referring Unavailable Chace, Chema Primary Care Unavailable Bryant Melendrez Attending Unavailable Chace, Chema Primary Care Unavailable Christopher Turk Attending Unavailable Chace, Chema Referring Unavailable Christopher Turk Attending Unavailable Vincent Camp Attending Unavailable Allergies Allergy Classification Reported Allergen(s) Allergy Type Date of Onset Reaction(s) Facility Acetaminophen / oxyCODONE (1 source) Acetaminophen / oxyCODONE Drug Allergy 08-09-20 Mental Status Change [facility] Anti-Epileptic Agents (1 source) lamoTRIgine Drug Allergy 08-09-20 20 Swelling [facility] Doxycycline (1 source) Doxycycline Drug Allergy 08-09-20 20 Vomiting [facility] Latex (1 source) Latex Substance Allergy 02-15-20 21 Rash [facility] NSAIDs (1 source) Diclofenac Drug Allergy 07-17-20 15 Other: See Comments [facility] Opioid Agonists (2 sources) oxyCODONE Drug Allergy 11-08-19 09 Mental Status Change, Other: See Comments [facility] Quinolones (antibiotic) (1 source) moxifloxacin Drug Allergy 08-09-20 Mental Status Change [facility] zolpidem (1 source) zolpidem Drug Allergy 08-09-20 20 Mental Status Change [facility] (20 sources) Acetaminophen / oxyCODONE; Translations: [OXYCODONE-ACETAMIN OPHEN] Drug Allergy 08-09-20 Mental Status Change [facility] (20 sources) Adhesive agent; Translations: [ADHESIVE] Drug Allergy 02-24-20 15 Other: See Comments [facility] (20 sources) Diclofenac; Translations: [DICLOFENAC SODIUM] Drug Allergy 07-17-20 15 Other: See Comments [facility] (4 sources) diphenhydrAMINE Drug Allergy 05-20-20 16 Unknown, Other: See Comments [facility] (20 sources) Doxycycline; Translations: [DOXYCYCLINE] Drug Allergy 08-09-20 Vomiting [facility] (20 sources) lamoTRIgine; Translations: [LAMOTRIGINE] Drug Allergy 08-09-20 Swelling [facility] (20 sources) Latex; Translations: [LATEX] Drug Allergy 02-15-20 21 Rash [facility] (20 sources) moxifloxacin; Translations: [MOXIFLOXACIN] Drug Allergy 08-09-20 Mental Status Change [facility] (20 sources) oxyCODONE; Translations: [OXYCODONE] Drug Allergy 06-28-20 Mental Status Change [facility] Comment on above: Nightmares, Suicidal Ideation (20 sources) Propoxyphene; Translations: [PROPOXYPHENE] Drug Allergy 11-08-19 Mental Status Change, Other: See Comments [facility] (20 sources) zolpidem; Translations: [ZOLPIDEM] Drug Allergy 08-09-20 Mental Status Change [facility] (20 sources) Adhesive Tape-Silicones; Translations: [ADHESIVE TAPE-SILICONES] Drug Allergy 02-24-20 15 Unknown [facility] (20 sources) Propoxyphene N-Acetaminophen; Translations: [PROPOXYPHENE N-ACETAMINOPHEN] Drug Allergy 02-09-20 06 Other: See Comments [facility] (20 sources) Acetaminophen Drug Allergy 11-08-19 Other [facility] (20 sources) moxifloxacin; Translations: [moxifloxacin HCl] Drug Allergy 11-08-19 Other [facility] (20 sources) Propoxyphene; Translations: [propoxyphene napsylate] Drug Allergy 11-08-19 Other [facility] (20 sources) zolpidem; Translations: [zolpidem tartrate] Drug Allergy 11-08-19 Other [facility] (20 sources) Adhesive agent Drug Allergy 02-24-20 15 Other: See Comments [facility] (18 sources) HYDROcodone Drug Allergy 10-23-19 Confusion [facility] Comment on above: Nightmares, Suicidal Ideation (1 source) Acetaminophen Drug Allergy 05-03-20 [facility] (1 source) Doxycycline Drug Allergy 05-03-20 [facility] (1 source) HYDROcodone Drug Allergy 05-03-20 [facility] (1 source) lamoTRIgine Drug Allergy 05-03-20 [facility] (1 source) Latex Drug allergy (disorder) 09-18-19 [facility] (1 source) oxyCODONE Drug Allergy 05-03-20 [facility] (1 source) zolpidem Drug Allergy 05-03-20 [facility] Medications Current Medications Medication Drug Class(es) Dates Sig (Normalized) Sig (Original) acetaminophen 500 mg oral capsule (13 sources) Start: 02-22-2025 Start: 09-13-2024 End: 09-13-2024 take 1 dose by mouth once 650 mg, ORAL, ONCE, 1 dose, On Fri09/13/24 at 1530 acetaminophen 325 mg / HYDROcodone bitartrate 5 mg oral tablet (20 sources) Opioid Agonist Start: 10-08-2024 End: 11-19-2024 take 1 tablet by mouth every six hours as needed for pain HYDROcodone-acetaminophen (NORCO) 5-325 mg per tablet Indications: Other chronic pain Take 1 tablet by mouth every 6 hours as needed for pain for up to 72 doses. 72 tablet 10/08/2024 11/19/2024 Active Start: 09-01-2021 End: 09-25-2021 Start: 09-01-2021 End: 09-25-2021 Hydrocodone-Acetaminophen 1 TABLET [...] unspecified formulation Given 10/09/2021 (1 source) Administered Med ications Medication Order MAR Action Action Date Dose Rate Site tuberculin skin test, unspecified formulation Given 10/09/2021 albuterol 0.83 mg/ml inhalation solution (20 sources) beta2-Adrenergic Agonist Start: 04-07-2023 End: 03-10-2025 Start: 02-11-2022 End: 04-07-2023 take 2.5 mg [...] HOURS 180 February 11, 2022 2:56pm Start: 09-25-2021 End: 02-11-2022 Start: 08-06-2021 End: 02-11-2022 albuterol (PROVENTIL) 2.5 mg /3 mL (0.083 %) nebulizer solution Use 2.5 mg via nebulizer as needed. 08/06/2021 Active Start: 05-09-2021 End: 09-25-2021 albuterol sulfate Discontinu ed 2.5 MG continuous nebulization ONCE 1 May 09, 2021 9:38am September 25, 2021 9:05pm Start: 05-09-2021 End: 08-09-2021 Start: 05-09-2021 End: 08-09-2021 take 2.5 mg by inhalation every four hours as needed for wheezing Albuterol Sulfate 2.5 mg /3 mL (0.083 %) solution for nebulization Discontinued 2.5 mg INHALATION Q4H as needed for Sob &/Or Wheezing May 09, 2021 12:00am August 09, 2021 2:12pm Comment on above: as needed. aspirin 81 mg delayed releas e oral tablet (20 sources) Platelet Aggregation Inhibitor, Nonsteroidal Anti-inflammatory Drug Start: 01-10-2022 Start: 06-28-2020 End: 02-08-2022 Comment on above: Take 81 mg by mouth once daily. azelastine hydrochloride 0.137 mg/actuat metered dose nasal spray (20 sources) Histamine-1 Receptor Antagonist Start: 03-16-2024 End: 06-18-2024 BD Sry/needle eclips (20 sources) Start: 02-23-2024 [...] the event of a Fluress shortage, administer Luxor-Fluor 1 drop into both eyes as directed for applanation tonometry, OPHT CLINIC MED ORDERS Start: 05-03-2024 End: 05-04-2024 fluorescein-benoxinate 0.3-0 .4 % 1 Drop (FLURESS) Start: 10-27-2023 End: 10-28-2023 fluorescein-benoxinate 0.3-0 .4 % 1 Drop (FLURESS) brimonidine tartrate 2 mg/ml ophthalmic solution (20 sources) alpha-Adrenergic Agonist Start: 10-14-2024 Start: 10-14-2024 Brimonidine 0. 2 % drops Active 1 NMA OPHTHALMIC AT BEDTIME October 14, 2024 1:00am Start: 05-03-2024 End: 11-01-2024 casanthranol/docusate sodium (DOCUSATE SODIUM WITH LAXATIVE ORAL) (20 sources) take 1 tablet by mouth every other day casanthranol/docusate sodium (DOCUSATE SODIUM WITH LAXATIVE ORAL) Take 1 tablet by mouth every other day. Suspended take 1 tablet by ricki every other day casanthranol/docusate sodium (DOCUSATE S ODIUM WITH LAXATIVE ORAL) Take 1 tablet by mouth every other day. Active cetirizine hydrochloride 10 mg oral capsule (20 sources) Histamine-1 Receptor Antagonist Start: 03-16-2024 Start: 01-29-2021 End: 03-01-2021 End: 09-14-2024 take 1 tablet by mouth once daily as needed cetirizine (ZYRTEC) 10 mg tablet Take 10 mg by mouth once daily as needed. 09/14/2024 Discontinued (Discontinued by Patient) D-Mannose (20 sources) Start: 06-07-2022 Start: 06-07-2022 take 1 capsule by mo [facility] once daily D-Mannose 500 mg capsule [...] 25, 2021 9:06pm Start: 09-02-2021 End: 09-25-2021 Start: 09-02-2021 End: 09-25-2021 take 1 capsule [...] 500 mg by mouth once daily. Active docusate sodium 50 mg / sennosides, long-term 8.6 mg oral tablet (12 sources) Start: 02-22-2025 DODEX 1,000 mcg/mL (20 sources) Start: 07-19-2022 inject 1000 ug by intramuscular injection every month DODEX 1,000 mcg/mL Inject 1,000 mcg intramuscularly once every month. Vitamin [id number] 07/19/2022 Suspended Start: 07-19-2022 inject 1000 ug by in tramuscular injection every month DODEX 1,000 mcg/mL Inject 1,000 mcg intramuscularly once every month. Vitamin [id number] 07/19/2022 Active Start: 07-19-2022 DODEX 1,000 mc g/mL inject 1 milliliter ( 1000 MCG ) intramuscularly Every Month 07/19/2022 Active Start: 07-19-2022 DODEX 1,000 mc g/mL inject 1 milliliter ( 1000 MCG ) intramuscularly Every Month 0 07/19/2022 Active Comment on above: inject 1 milliliter ( 1000 MCG ) intramuscularly Every Month donepezil hydrochloride 10 m g oral tablet (20 sources) Start: 02-06-2025 Start: 10-16-2023 End: 10-14-2024 Start: 04-07-2023 End: 02-06-2025 Start: 04-07-2023 End: 11-12-2023 take 1 tablet [...] daily with breakfast. dorzolamide 20 mg/ml / timol ol 5 mg/ml ophthalmic solution (20 sources) Carbonic Anhydrase Inhibitor, beta-Adrenergic Oxana Start: 02-22-2025 Start: 11-01-2024 take 1 drop(s) into the [...] contrast guidelines 1 Each 06/18/2024 06/19/2024 Active ergocalciferol 1.25 mg oral capsule (15 sources) Provitamin D2 Compound Start: 02-08-2025 End: 04-13-2025 famotidine 10 mg oral tablet (20 sources) Histamine-2 Receptor Antagonist Start: 06-07-2022 Start: 02-15-2022 End: 04-25-2022 Comment on above: Take 10 mg by mouth twice daily. fluticasone propionate 0.05 mg/actuat metered dose nasal spray (20 sources) Corticosteroid Start: 03-16-2024 End: 09-14-2024 take 1 spray(s) nasal route once daily fluticasone (ALLERGY RELIEF, FLUTICASONE,) 50 mcg/actuation nasal spray Use 1 [place] in each nostril once daily. 09/14/2024 Discontinued (Discontinued by Patient) gabapentin 100 mg oral capsule (20 sources) Anti-epileptic Agent Start: 02-03-2025 take 3 capsules by mouth at bedtime Gabapentin 100 mg capsule Active 300 mg PO AT BEDTIME February 03, 2025 12:00am Start: 01-02-2023 End: 06-21-2025 Start: 01-02-2023 End: 12-20-2025 Start: 01-02-2023 End: 01-29-2023 take 1 capsule by mouth twice daily as needed Gabapentin 100 mg capsule Discontinued 100 mg PO TWICE A DAY as needed for restless leg(s) January 02, 2023 12:00am January 29, 2023 3:44pm Start: 03-01-2021 End: 09-04-2021 Start: 03-01-2021 End: 09-04-2021 Start: 06-28-2020 End: 03-01-2021 Start: 06-28-2020 End: 03-01-2021 Start: 06-28-2020 End: 08-02-2020 take 2 capsules [...] Active HYDROmorphone hydrochloride 2 mg oral tablet (20 sources) Opioid Agonist Start: 03-14-2025 Start: 02-03-2025 End: 03-03-2025 Ipratropium (16 sources) Anticholinergic Start: 10-08-2023 Ipratropium [...] 12 % lotion 06/13/2022 Active lactobacillus acidophilus [id number] unt oral capsule (20 sources) Start: 03-27-2021 take 1 capsule by mouth once daily Lactobacillus acidophilus (PROBIOTIC) 10 billion cell cap Take 1 capsule by mouth once daily. 03/27/2021 Active Comment on above: once daily. latanoprost 0.05 mg/ml ophthalmic solution (20 sources) Prostaglandin Analog Start: 08-13-2023 Start: 07-28-2023 End: 06-10-2024 take 1 drop(s) into the eye(s) once daily at bedtime latanoprost (XALATAN) 0.005 % ophthalmic solution Use 1 Drop in both eyes daily at bedtime. 7.5 mL 11 06/10/2024 Active Comment on above: Use 1 Drop in both e yes daily at bedtime. lidocaine 0.05 mg/mg medicat ed patch (20 sources) Antiarrhythmic, Amide Local Anesthetic Start: 02-08-2025 Start: 09-18-2024 End: 10-14-2024 Start: 09-18-2024 End: 10-14-2024 Lidocaine (Lidoderm) 5 % adh esive patch,medicated Discontinued 1 NMA TOPICAL DAILY September 18, 2024 1:00am October 14, 2024 2:12pm leave on most painful area for up to 12 hrs MULTIVITAMIN ORAL (20 sources) Start: 06-07-2022 take [...] DAILY June 06, 2022 11:00pm Multivitamin tablet (6 sources) Start: 06-07-2022 Multivitamin t ablet Active 1 {tbl} PO DAILY June 07, 2022 12:00am nitroglycerin 0.4 mg sublingual tablet (20 sources) Nitrate Vasodilator Start: 11-12-2023 End: 11-12-2023 Start: 11-12-2023 End: 11-12-2023 Nitroglycerin 0.4 mg tablet, sublingual Active 0.4 mg SL every 5 to 15 minutes as needed for chest pain November 12, 2023 3:12pm do not exceed 3 doses per episode Start: 11-12-2023 End: 11-12-2023 Nitroglycerin Active 0.4 MG SL every 5 to 15 minutes November 12, 2023 3:12pm do not exceed 3 doses per episode Start: 06-28-2020 End: 03-01-2021 Start: 06-28-2020 End: 03-01-2021 take 1 tablet [...] Comment on above: as needed. olopatadine hydrochloride 0. 665 mg/actuat metered dose nasal spray (18 sources) Histamine-1 Receptor Inhibitor Start: 10-14-2024 Start: 10-14-2024 Olopatadine 0. 6 % spray,non-aerosol Active 2 NMA INTRANASAL DAILY October 14, 2024 1:00am Start: 10-14-2024 Olopatadine 0. 6 % spray,non-aerosol Active NMA INTRANASAL October 14, 2024 1:00am ondansetron 4 mg disintegrating oral tablet (12 sources) Serotonin-3 Receptor Antagonist Start: 02-22-2025 OXYGEN, HOME THERAPY, (20 sources) OXYGEN, HOME THERAPY, Inhale 2 L/min as [...] tablet (20 sources) Proton Pump Inhibitor Start: 09-23-2024 End: 09-26-2025 PEP device (20 sources) Start: 04-06-2024 PEP device Active 0 .ROUTE .MEDSUPPLY April [...] release oral tablet (20 sources) Start: 08-03-2024 End: 04-25-2025 Start: 09-26-2021 End: 04-11-2022 take 20 mEq [...] 1 Drop (A LCAINE) syringes BD ECLIPSE (13 sources) Start: 04-11-2023 syringes BD EC LIPSE [...] syringes BD EC LIPSE Active 0 .ROUTE .[facility] April 11, 2023 12:00am Bd SYR/leticia Eclipse 3ml #5782 tropicamide 10 mg/ml ophthalmic solution (1 source) Anticholinergic Start: 05-03-2024 End: 05-04-2024 tropicamide 1 % 1 Drop (MYDRIACYL) (20 sources) Start: 03-22-2025 Start: 10-14-2024 End: 10-14-2024 Start: 04-06-2024 Start: 04-05-2024 End: 04-06-2024 Start: 04-01-2024 End: 01-24-2025 Start: 02-23-2024 Start: 12-08-2023 End: 02-23-2024 Start: 10-08-2023 End: 03-16-2024 Start: 07-22-2023 End: 09-18-2023 Start: 04-11-2023 End: 12-08-2023 Start: 04-11-2023 End: 04-11-2023 Start: 04-11-2023 Start: 06-07-2022 Start: 04-25-2022 End: 04-11-2023 Start: 03-20-2022 End: 06-07-2022 Start: 02-11-2022 End: 04-07-2023 Start: 09-02-2021 Start: 05-09-2021 End: 10-08-2023 Start: 05-09-2021 End: 05-09-2021 Completed/Discontinued Medications Medication Drug Class(es) Dates Sig (Normalized) Sig (Original) acetaminophen 500 mg / caffeine 60 mg / pyrilamine maleate 15 mg oral tablet (20 sources) Central Nervous System Stimulant, Methylxanthine Start: 02-15-2022 End: 04-25-2022 acetaminophen 500 mg / pamabrom 25 mg / pyrilamine maleate 15 mg oral tablet (20 sources) Start: 02-15-2022 End: 04-25-2022 acyclovir 800 mg oral tablet (20 sources) Herpesvirus Nucleoside Analog DNA Polymerase Inhibitor, Herpes Simplex Virus Nucleoside Analog DNA Polymerase Inhibitor, Herpes Zoster Virus Nucleoside Analog DNA Polymerase Inhibitor Start: 04-17-2024 End: 04-19-2024 Start: 04-02-2023 End: 08-13-2023 Albuterol Sulfate 2.5 mg /3 mL (0.083 %) solution for nebulization (6 sources) Start: 02-11-2022 End: 04-07-2023 take 2.5 [...] sources) Penicillin-class Antibacterial Start: 12-26-2014 End: 06-28-2020 apixaban 5 mg oral tablet (20 sources) Factor Xa Inhibitor Start: 03-09-2021 End: 06-08-2024 Start: 03-09-2021 End: 09-25-2021 take 2 tablets [...] sources) Vitamin C Start: 06-28-2020 End: 03-01-2021 Start: 06-28-2020 End: 03-01-2021 Iron,Carbonyl-Vitamin C (Vit jerel-C) 65 mg iron- 125 mg tablet,delayed release (DR/EC) Discontinued 1 {tbl} PO EVERY OTHER DAY June 28, 2020 1:00am March 01, 2021 7:55pm swallow whole; do not chew/break/dissolve/open atorvastatin 40 mg oral tablet (20 sources) HMG-CoA Reductase Inhibitor Start: 03-08-2021 End: 06-08-2024 Comment on above: Take 40 mg by [...] sources) Non-narcotic Antitussive Start: 03-21-2022 End: 06-07-2022 bisacodyl 10 mg rectal suppository (8 sources) Stimulant Laxative Start: 11-07-2021 End: 04-11-2022 bisacodyl (DULCOLAX) 10 mg supp as needed. 0 11/07/2021 04/11/2022 Discontinued (Discontinued by Patient) Start: 11-07-2021 Bisacodyl Acti ve 10 MG RC DAILY November 07, 2021 2:23pm Comment on above: as needed. cefdinir 300 mg oral capsule (20 sources) Cephalosporin Antibacterial Start: 09-04-2021 End: 09-25-2021 Start: 02-13-2021 End: 03-01-2021 cephalexin 500 mg oral capsu le (18 sources) Cephalosporin Antibacterial Start: 05-04-2024 End: 06-07-2024 cholecalciferol 0.025 mg ora l capsule (20 sources) Vitamin D Start: 09-02-2021 End: 04-25-2022 Start: 06-28-2020 End: 03-01-2021 Start: 06-28-2020 End: 03-01-2021 take 1 capsule by mouth once daily Cholecalciferol (Vitamin D3) (Vitamin D3) 50 mcg (2,000 unit) Capsule Discontinued 50 ug PO DAILY January 29, 2021 12:00am March 01, 2021 7:55pm Cranberry (20 sources) Non-Standardized Food Allergenic Extract , Non-Standardized Plant Allergenic Extract Start: 06-07-2022 End: 01-08-2023 Start: 06-07-2022 End: 01-08-2023 take 1 capsule [...] 25, 2021 9:06pm Start: 09-02-2021 End: 09-25-2021 Start: 09-02-2021 End: 09-25-2021 take 1 capsule [...] (Vitamin B-12 ) (Dodex) 1,000 mcg/mL solution (9 sources) Start: 07-22-2023 End: 09-18-2023 Cyanocobalamin (Vitamin [...] vials. Cyanocobalamin (Vitamin B-12) 1,000 mcg/mL solution (6 sources) Start: 04-01-2024 End: 01-24-2025 inject 1000 ug by intramuscular injection every month Cyanocobalamin (Vitamin B-12) 1,000 mcg/mL solution Discontinued 1000 ug IM EVERY MONTH April 01, 2024 12:00am January 24, 2025 10:45am Can be administered at [facility] Start: 04-01-2024 inject 1000 ug by in tramuscular injection every month Cyanocobalamin (Vitamin B-12) 1,000 mcg/mL solution Active 1000 ug IM EVERY MONTH April 01, 2024 12:00am Can be administered at [facility] D marlo (20 sources) Start: 03-20-2022 End: 06-07-2022 D marlo Discontinued PO Augu st 2021 12:00am June 07, 2022 1:08pm Start: 03-20-2022 End: 06-07-2022 D marlo Discontinued PO Augu st 2021 11:00pm June 07, 2022 12:08pm 1 ml denosumab 60 mg/ml pref illed syringe (20 sources) RANK Ligand Inhibitor Start: 06-07-2022 End: 01-24-2025 Start: 06-28-2020 End: 03-01-2021 denosumab (PROLI A SUBCUTANEOUS) Inject 1 Dose [...] November 2020 diazePAM 2 mg oral tablet (20 sources) Benzodiazepine Start: 02-03-2025 End: 02-08-2025 Start: 03-16-2024 End: 06-18-2024 esomeprazole 40 mg delayed release oral capsule (20 sources) Proton Pump Inhibitor Start: 06-28-2020 End: 03-01-2021 ezetimibe 10 mg oral tablet (20 sources) Dietary Cholesterol Absorption Inhibitor Start: 06-28-2020 End: 03-01-2021 fluconazole 10 mg/ml oral suspension (20 sources) Azole Antifungal Start: 02-15-2022 End: 04-25-2022 Start: 02-15-2022 End: 04-25-2022 Fluconazole 10 mg/mL Suspens ion For Reconstitution Discontinued mg February 15, 2022 12:00am April 25, 2022 11:41am Start: 02-15-2022 End: 04-25-2022 Fluconazole Discontinued MG February 15, 2022 12:00am April 25, 2022 11:41am furosemide 20 mg oral tablet (20 sources) Loop Diuretic Start: 08-13-2023 End: 12-20-2024 take 0.5 tablet by mouth once as needed furosemide (LASIX) 20 mg tablet Take 0.5 tablets by mouth every afternoon. As needed 45 tablet 12/16/2024 12/20/2024 Discontinued Start: 08-13-2023 End: 11-23-2024 Start: 08-13-2023 End: 11-23-2024 take 10 mg by mouth once daily as needed for edema Furosemide 20 mg tablet Discontinued 10 mg PO DAILY as needed for edema October 28, 2024 3:57pm November 23, 2024 10:15am Start: 08-13-2023 End: 10-08-2023 take 10 mg by mouth once daily Furosemide Active 10 MG PO DAILY October 08, 2023 3:28pm Start: 06-28-2020 End: 03-01-2021 Comment on above: Take 0.5 tablets by mouth every afternoon. hyoscyamine sulfate 0.125 mg oral tablet (20 sources) Start: 06-28-2020 End: 03-01-2021 Ibuprofen (3 sources) Nonsteroidal Anti-inflammatory Drug End: 04-11-2022 IBUPROFEN ORAL Take by mouth as needed. 0 04/11/2022 Discontinued (Discontinued by Patient) IBUPROFEN ORAL T fred by mouth as needed. 0 Active Comment on above: Take by mouth as nee ded. Ipratropium [place] 42 mcg (0.06 %) spray,non-aerosol (6 sources) Start: 10-08-2023 End: 03-16-[address] [place] 42 mcg (0.06 %) spray,non-aerosol Discontinued 2 [...] Protect from Light. lacosamide 100 mg oral table t (20 sources) Anti-epileptic Agent Start: 06-28-2020 End: 02-08-2025 Comment on above: Take 1 tablet by ricki twice daily for 180 days. levothyroxine sodium 0.05 mg oral tablet (20 sources) l-Thyroxine Start: 12-03-2022 End: 06-08-2024 Start: 12-03-2022 End: 10-15-2023 Start: 03-30-2021 End: 06-08-2024 take 1 tablet by mouth once daily levothyroxine (SYNTHROID) 50 mcg tablet Take 50 mcg by mouth once daily. 03/30/2021 Active Start: 03-08-2021 End: 12-03-2022 Comment on above: Take 25 mcg by mouth once daily. LORazepam 0.5 mg oral tablet (1 source) Benzodiazepine Start: End: take 1 tablet by mouth once LORazepam (ATIVAN) 0.5 mg Indications: Anxiety Take 1 tablet by mouth one time only for 1 dose. Please take 30-40 mins before MRI 1 tablet 0 11/13/2022 11/13/2022 Comment on above: Take 1 tablet by ricki th one time only for 1 dose. Please [...] mouth as nee ded. meclizine hydrochloride 25 m g oral tablet (20 sources) Antiemetic Start: 01-01-2023 End: 10-08-2023 Comment on above: Take 25 mg by mouth as needed. meloxicam 7.5 mg oral tablet (20 sources) Nonsteroidal Anti-inflammatory Drug Start: 08-03-2020 End: 11-06-2020 memantine hydrochloride 10 m g oral tablet (20 sources) M-pnsunz-C-aspartate Receptor Antagonist Start: 04-10-2021 End: 06-08-2024 Methylprednisolone (20 sources) Corticosteroid Start: 03-16-2024 End: 04-05-2024 Start: 03-16-2024 End: 04-05-2024 take 1 tablet by mouth once Methylprednisolone (Medrol (Devan)) 4 mg tablets,dose pack Discontinued 0 PO per package directions March 16, 2024 12:00am April 05, 2024 2:23pm PO PER PKG DIR Start: 03-24-2023 End: 04-07-2023 Start: 03-24-2023 End: 04-07-2023 take 1 tablet by mouth once Methylprednisolone (Medrol (Devan)) 4 mg tablets,dose pack Discontinued 0 PO per package directions March 24, 2023 12:00am April 07, 2023 1:58pm PO PER PKG DIR midodrine hydrochloride 2.5 mg oral tablet (20 sources) alpha-Adrenergic Agonist Start: 01-08-2023 End: 01-29-2023 mineral oil 1000 mg/ml enema (8 sources) Start: 11-07-2021 End: 04-11-2022 mineral oil (FLEET MINERAL OIL ENEMA) enema as needed. 0 11/07/2021 04/11/2022 Discontinued (Discontinued by Patient) Start: 11-07-2021 Mineral Oil (F leet Mineral Oil) enema Active 118 ML RC DAILY November 07, 2021 2:23pm discard any unused portion Comment on above: as needed. 24 hr mirabegron 50 mg exten ded release oral tablet (20 sources) beta3-Adrenergic Agonist Start: 06-28-2020 End: 01-29-2023 Start: 06-28-2020 End: 01-29-2023 Start: 06-28-2020 End: 01-29-2023 Comment on above: Taking 2 tabs once d aily mirtazapine 15 mg oral tablet (8 sources) [...] tablet (20 sources) Leukotriene Receptor Antagonist Start: 06-28-2020 End: 03-01-2021 moxifloxacin (2 sources) Quinolone Antimicrobial End: 03-14-2023 moxifloxacin HCl (AVELOX ORAL) Take by mouth. [...] Nonergot Dopamine Agonist Start: 09-26-19 End: 06-08-20 Start: 09-25-2021 take 1 tablet by ricki th three times daily pramipexole (MIRAPEX) 0.5 mg tablet Take 0.5 mg by mouth three times daily. 09/26/2021 Active Start: 05-09-2021 End: 09-25-2021 Start: 06-28-2020 End: 03-01-2021 Comment on above: Take 0.5 mg by mouth three times daily. pravastatin sodium 40 mg ora l tablet (20 sources) HMG-CoA Reductase Inhibitor Start: 06-28-2020 End: 03-01-2021 predniSONE 20 mg oral tablet (20 sources) Start: 03-08-2021 End: 05-09-2021 sertraline 100 mg oral table t (20 sources) Serotonin Reuptake Inhibitor Start: 06-28-2020 End: 03-01-2021 Start: 06-28-2020 End: 03-01-2021 take 1 tablet by mouth at bedtime Sertraline (Zoloft) 100 mg tablet Discontinued 100 mg PO AT BEDTIME February 13, 2021 5:04pm March 01, 2021 7:56pm spironolactone 25 mg oral ta blet (20 sources) Aldosterone Antagonist Start: 06-28-2020 End: 03-01-2021 Start: 06-28-2020 End: 03-01-2021 take 1 tablet by mouth at bedtime Spironolactone (Aldactone) 25 mg tablet Discontinued 25 mg PO AT BEDTIME June 28, 2020 1:00am March 01, 2021 7:56pm sulfamethoxazole 800 mg / trimethoprim 160 mg oral tablet (18 sources) Dihydrofolate Reductase Inhibitor Antibacterial, Sulfonamide Antimicrobial Start: 06-05-2024 End: 06-15-2024 Start: 06-05-2024 End: 06-15-2024 Sulfamethoxazole-Trimethopri m (Bactrim Ds) 800-160 mg tablet Discontinued 1 {tbl} PO TWICE A DAY 06 06June 05, 2024 12:00am June 14, 2024 12:00am June 15, 2024 12:08am 24 hr tolterodine tartrate 4 mg extended release oral capsule (20 sources) Cholinergic Muscarinic Antagonist Start: 01-10-2022 End: 01-29-2023 Start: 06-28-2020 End: 11-07-2021 Comment on above: Take 4 mg by mouth o nce daily. torsemide 20 mg oral tablet (3 sources) Loop Diuretic Start: 12-20-2024 End: 12-24-2024 take 1 tablet by mouth once daily torsemide (DEMADEX) 20 mg tablet Take 1 tablet by mouth once daily. 90 tablet 3 12/20/2024 12/24/2024 Discontinued Tramadol (20 sources) Opioid Agonist Start: 10-14-2024 End: 10-28-2024 Start: 10-14-2024 End: 10-28-2024 take 1 tablet [...] 07/13/2022 10/12/2024 Discontinued Start: 07-13-2022 End: 10-08-2023 Start: 07-13-2022 End: 10-08-2023 take 1 tablet [...] mouth as needed. valACYclovir 500 mg oral tab let (20 sources) Herpesvirus Nucleoside Analog DNA Polymerase Inhibitor, Herpes Simplex Virus Nucleoside Analog DNA Polymerase Inhibitor, Herpes Zoster Virus Nucleoside Analog DNA Polymerase Inhibitor Start: 04-19-2024 End: 06-07-2024 Start: 04-02-2023 Valacyclovir ( Valtrex) 1 gram tablet Active 1000 MG PO THREE TIMES A DAY 07 03April 02, 2023 12:00am End: 06-18-2024 take 2 tablets by mouth three times daily valACYclovir (VALTREX) 500 mg tablet Take 1,000 mg by mouth three times a day. 06/18/2024 Discontinued (Course of therapy completed) vitamin b12 1 mg/ml injectab le solution (20 sources) Vitamin B12 Start: 01-24-2025 End: 02-22-2025 Start: 09-18-2023 End: 06-05-2024 Start: 04-25-2022 End: 07-22-2023 Start: 04-25-2022 End: 08-15-2022 inject 100 ug by intramuscular injection every month Cyanocobalamin (Vitamin B-12) (Dodex) 1,000 mcg/mL solution Discontinued 100 ug IM EVERY MONTH April 25, 2022 12:00am August 15, 2022 2:10pm vortioxetine 20 mg oral tabl et (20 sources) Start: 04-10-2021 End: 06-08-2024 Comment on above: Once daily Take 20 mg by mouth once daily. Problems Active Problems Problem Classification Problem Date Documented Da te Episodic/Chronic Acute and unspecified renal failure (20 sources) [...] [Anxiety disorder, unspecified] Chronic Biliary tract disease (17 sources) Disorder of biliary tract; Translations: [Other specified diseases of biliary tract] Onset: 5 11-17-2024 Chronic Chronic obstructive pulmonary disease and bronchiectasis (20 sources) Bronchiectasis; Translations: [Bronchiectasis, uncomplicated] Onset: 4 Chronic Comment on above: Lingular subsegment Conduction disorders (1 source) Cardiac pacemaker in situ; Translations: [Presence of cardiac pacemaker] Onset: 4 07-19-2024 Chronic Coronary atherosclerosis and other heart disease (20 sources) Coronary atherosclerosis; Translations: [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] Onset: 1 Chronic Deficiency and other anemia (20 sources) Iron deficiency anemia; Translations: [Iron deficiency anemia, unspecified] Onset: 4 03-12-2021 Episodic Deficiency and other anemia (2 sources) Iron deficiency anemia, unspecified; Translations: [Iron deficiency anemia, unspecified iron deficiency anemia type] Onset: 4 Episodic Delirium, dementia, and amnestic and other [...] for closed fracture] Onset: 5 06-28-2020 Episodic Genitourinary symptoms and ill-defined conditions (11 sources) Urge incontinence of urine; Translations: [Urge incontinence] Onset: 5 03-15-2025 Chronic Genitourinary symptoms and ill-defined conditions (11 sources) Nocturia; Translations: [Nocturia] Onset: 5 03-15-2025 Episodic Glaucoma (6 sources) Primary open angle [...] 05-28-2022 Episodic Joint disorders and dislocations; trauma-related (19 sources) Chronic instability of left knee joint; Translations: [Chronic instability of knee, left knee] Onset: 4 07-12-2024 Chronic Malaise and fatigue (20 sources) Physical deconditioning; Translations: [Other malaise] Onset: 1 Episodic Malignant neoplasm without specification of site (20 sources) Malignant neoplastic disease; Translations: [Malignant (primary) neoplasm, unspecified] 01-02-2023 Chronic Comment on above: BREAST/LUMPECTOMY LE FT/RADIATION/LYMPHADEMA Menopausal disorders (16 sources) Atrophic vaginitis; Translations: [Postmenopausal atrophic vaginitis] Onset: 5 03-15-2025 Chronic Mood disorders (20 sources) Depressive disorder; Translations: [Depression, unspecified depression type] Chronic Mood disorders (2 sources) Mood disorders; Translations: [Depression, unspecified depression type] Onset: 5 Multiple sclerosis (20 sources) Multiple sclerosis; Translations: [Multiple sclerosis] Onset: 4 Resolved: 5 07-19-2024 Chronic Nonmalignant breast conditions (20 sources) Lump of upper inner quadrant of breast; Translations: [Unspecified lump in the left breast, upper inner quadrant] 01-08-2023 Episodic Nutritional deficiencies (20 sources) Vitamin D deficiency; Translations: [Vitamin D deficiency, unspecified] Onset: 5 03-12-2021 Chronic Nutritional deficiencies (20 sources) Cobalamin deficiency; Translations: [Deficiency of other specified B group vitamins] 10-21-2022 Episodic Open wounds of extremities (3 sources) Laceration of left lower leg; Translations: [Laceration without foreign body, left lower leg, initial encounter] Onset: 5 05-02-2025 Episodic Open wounds of head; neck; and trunk (20 sources) Scalp laceration; Translations: [Laceration without foreign body of scalp, initial encounter] 07-21-2022 Episodic Osteoarthritis (20 sources) Osteoarthritis of left knee joint; Translations: [...] site unspecified] 09-14-2024 Chronic Other acquired deformities (20 sources) Kyphoscoliosis deformity of spine; Translations: [Scoliosis, unspecified] 04-05-2024 Chronic Other acquired deformities (1 source) Unspecified kyphosis, site unspecified; Translations: [Kyphosis, unspecified kyphosis type, unspecified spinal region] Onset: 5 Chronic Other acquired deformities (1 source) Scoliosis, unspecified; Translations: [Scoliosis, unspecified] Onset: 5 Chronic Other acquired deformities (20 sources) Deformity of sternum; Translations: [Acquired deformity of chest and rib] 06-28-2023 Episodic Other acquired deformities (8 sources) Acquired deformity of chest and rib; Translations: [Acquired deformity of chest and rib] 02-12-2023 Episodic Other aftercare (20 sources) Long-term current use of anticoagulant; Translations: [senior living (current) use of anticoagulants] 03-23-2022 Episodic Other aftercare (20 sources) Surgical follow-up; Translations: [Encounter for removal of sutures] 07-24-2022 Episodic Other aftercare (4 sources) Encounter for removal of sutures; Translations: [Encounter for removal of sutures] Episodic Other aftercare (18 sources) Drug therapy finding; Translations: [senior living (current) use of anticoagulants] 06-15-2024 Episodic Other [...] 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] 09-14-2024 Episodic Other connective tissue disease (20 sources) Recurrent falls ; Translations: [Repeated falls] Onset: 1 Episodic Other connective tissue disease (8 sources) Repeated falls; Translations: [History of fall] Onset: 5 Episodic Other connective tissue disease (20 sources) Bursitis of olecranon of left elbow; Translations: [Olecranon bursitis, left elbow] 10-16-2022 Episodic Other connective tissue disease (20 sources) Pain in left lower limb; Translations: [Pain in left leg] 12-25-2022 Episodic Other connective tissue disease (5 sources) Pain in left leg; Translations: [Pain in limb] 12-25-2022 Episodic Other connective tissue disease (20 sources) Increased muscle tone; Translations: [Other specified disorders of muscle] 04-22-2023 Episodic Other connective tissue disease (12 sources) Fine motor impairment ; Translations: [Other symptoms and signs involving the nervous system] 06-16-2023 Episodic Other diseases of bladder and urethra [...] unspecified; Translations: [Hypoglycemia] Onset: 5 Chronic Other eye disorders (11 sources) Ptosis of right upper eyelid; Translations: [Unspecified ptosis of right eyelid] 03-11-2025 Episodic Other eye disorders (2 sources) Unspecified ptosis of right eyelid; Translations: [Ptosis of right eyelid] Onset: 5 Episodic Other fractures (20 sources) Compression fracture of [...] fracture of rib(s), unspecified] Episodic Other fractures (20 sources) Fracture of right rib; Translations: [Fracture of one rib, right side, initial encounter for closed fracture] 10-12-2021 Episodic Other fractures (12 sources) Closed fracture of clavicle; Translations: [Fracture of unspecified part of right clavicle, subsequent encounter for fracture with nonunion] 03-11-2025 Episodic Other fractures (1 source) Displaced fracture of shaft of right clavicle, subsequent encounter for fracture with routine healing; Translations: [Displaced fracture of shaft of right clavicle, subsequent encounter for fracture with routine healing] Onset: 5 Episodic Other fractures (1 source) Fracture of unspecified part of right clavicle, subsequent encounter for fracture with nonunion; Translations: [Fracture of unspecified part of right clavicle, subsequent encounter for fracture with nonunion] Onset: 5 Episodic Other fractures (1 source) Fracture of unspecified part of right clavicle, subsequent encounter for fracture with routine healing; Translations: [Fracture of unspecified part of right clavicle, subsequent encounter for fracture with routine healing] Onset: 5 Episodic Other gastrointestinal disorders (20 sources) Dysphagia; Translations: [Dysphagia, unspecified] 02-06-2021 Episodic Other gastrointestinal disorders (20 sources) Esophageal dysphagia; Translations: [Other dysphagia] 09-29-2020 Episodic Other gastrointestinal disorders (20 sources) Constipation; Translations: [Other constipation] 04-25-2022 Episodic Other gastrointestinal disorders (3 sources) Other constipation; Translations: [Other constipation] Episodic Other gastrointestinal disorders (5 sources) Smearing feces; Translations: [Fecal smearing] 03-15-2025 Episodic Other hereditary and degenerative nervous system conditions (20 sources) Restless legs; Translations: [Restless legs syndrome] Onset: 7 09-04-2021 Chronic Other hereditary and degenerative nervous system conditions (20 sources) Restless legs syndrome; Translations: [Restless legs syndrome (RLS)] Onset: 4 Chronic Other inflammatory condition of skin (18 sources) Itching of skin; Translations: [Pruritus, unspecified] 10-08-2020 Episodic Other inflammatory condition of skin (20 sources) Pruritus, unspecified; Translations: [Pruritus] 10-08-2020 Episodic [...] external causes (20 sources) Injury of left elbow region; Translations: [...] [Complex regional pain syndrome I, unspecified] Onset: Chronic Other nervous system disorders (20 sources) [...] of coordination; Translations: [Lack of coordination] Onset: Episodic Other nervous system disorders (14 sources) Tremor; Translations: [Tremor, unspecified] 03-11-2025 Episodic Other nervous system disorders (2 sources) Tremor, unspecified; Translations: [Episode of shaking] Onset: 5 Episodic Other non-traumatic joint disorders (20 sources) Pain in elbow; Translations: [Pain in left elbow] 10-16-2022 Episodic Other non-traumatic joint disorders (1 source) Pain in right shoulder; Translations: [Pain in right shoulder] Onset: 5 Episodic Tiffany-; endo-; and myocarditis; cardiomyopathy (except that caused by tuberculosis or sexually transmitted disease) (3 sources) Cardiomyopathy; Translations: [Cardiomyopathy, unspecified] Onset: 4 06-18-2024 Chronic Poisoning by nonmedicinal substances (20 sources) Bee sting; Translations: [Toxic effect of venom of bees, accidental (unintentional), initial encounter] 03-24-2023 Episodic Pulmonary heart disease (20 sources) Pulmonary hypertension; Translations: [Pulmonary hypertension, unspecified] Onset: 5 09-14-2024 Chronic Residual codes; unclassified (20 sources) Obstructive [...] [Edema] Onset: 4 Episodic Residual codes; unclassified (20 sources) Bilateral lower limb edema; Translations: [Localized edema] Onset: 9 07-19-2024 Episodic Residual codes; unclassified (4 sources) Activity of daily living (ADL) alteration; Translations: [Other specified health status] 10-29-2024 Episodic Residual codes; unclassified (20 sources) History of hernia repair; Translations: [Other specified postprocedural states] 10-29-2024 Episodic Comment on above: [facility] Residual codes; unclassified (17 sources) Edema of lower extremity; Translations: [Localized edema] 11-09-2024 Episodic Residual codes; unclassified (1 source) Other specified health status; Translations: [Decreased activities of daily living (ADL)] Onset: Episodic Residual codes; unclassified (2 sources) Personal history of other specified conditions; Translations: [Personal history of other specified diseases] Onset: 5 03-17-2025 Episodic Residual codes; unclassified (2 sources) Mental state finding; Translations: [Altered mental status, unspecified] 03-17-2025 Episodic Residual codes; unclassified (5 sources) History of hysterectomy for benign disease; Translations: [Acquired absence of both cervix and uterus] 03-15-2025 Episodic Residual codes; unclassified (2 sources) Altered mental status, unspecified; Translations: [Fluctuating mental status] Onset: Episodic Skin and subcutaneous tissue infections (18 sources) Bacterial infection of skin; Translations: [Local [...] cervical region] 09-10-2024 Episodic Sprains and strains (18 sources) Lower back injury; Translations: [Strain of muscle, fascia and tendon of lower back, initial encounter] 06-15-2024 Episodic Superficial injury; contusion (20 sources) Contusion of chest; Translations: [Contusion of unspecified front wall of thorax, initial encounter] 03-23-2022 Episodic Thyroid disorders (20 sources) Hypothyroidism; Translations: [Hypothyroidism, unspecified] Onset: 4 Chronic Transient cerebral ischemia (20 sources) Transient cerebral ischemia; 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, unspecified] Chronic Unclassified (20 sources) 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 Unclassified (1 source) Occupational Therapy Onset: 5 Unclassified (3 sources) Clavicle fracture Unclassified (1 source) History of seizures 03-17-2025 Unclassified (2 sources) 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 [...] Translations: [Urinary tract infection, site not specified] Onset: 5 Episodic Varicose veins of lower extremity (20 [...] sources) Epigastric pain; Translations: [Epigastric pain] Onset: 09-14-2024 09-03-2024 Episodic Biliary tract disease (4 sources) Common bile duct calculus; Translations: [Calculus of bile duct without cholangitis or cholecystitis without obstruction] Onset: 09-13-2024 09-13-2024 Episodic Cancer of breast (20 sources) History of malignant neoplasm of breast; Translations: [Personal history of malignant neoplasm of breast] Onset: 06-10-2008 07-19-2024 Episodic Conditions associated with dizziness or vertigo (20 sources) Lightheadedness; Translations: [Dizziness and giddiness] Onset: 12-23-2024 Episodic Coronary atherosclerosis and other heart disease (20 sources) Stented coronary artery; Translations: [Presence of coronary angioplasty implant and graft] Onset: 07-20-2024 Episodic Comment on above: 2 STENTS/ Fluid and electrolyte disorders (20 sources) Dehydration; Translations: [Dehydration] Onset: 02-20-2019 02-23-2022 Episodic Nausea and vomiting (6 sources) Nausea and vomiting; Translations: [Nausea with vomiting, unspecified] Onset: 09-14-2024 09-03-2024 Episodic Open wounds of extremities (20 sources) Open wound of lower limb; Translations: [Unspecified open wound, right lower leg, initial encounter] Onset: 12-19-2024 05-04-2024 Episodic Other circulatory disease (1 source) Other specified symptoms and signs involving the circulatory and respiratory systems; Translations: [Carotid bruit, unspecified laterality] Onset: 12-20-2024 Episodic Other circulatory disease (1 source) Personal history of transient ischemic attack (TIA), and cerebral 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; Translations: [History of transient ischemic attack (TIA)] Onset: 09-14-2024 Episodic Other connective tissue disease (2 sources) Other symptoms and signs involving the nervous system; Translations: [Fine motor impairment] Onset: 11-26-2024 Episodic Other connective tissue disease (2 sources) Other symptoms and signs involving the musculoskeletal system; Translations: [Fine motor impairment] Onset: 11-26-2024 Episodic Other gastrointestinal disorders (3 sources) Dysphagia, unspecified; Translations: [Dysphagia, unspecified] Onset: 10-21-2024 08-13-2023 Episodic Other gastrointestinal disorders (20 sources) Diarrhea; Translations: [Diarrhea, unspecified] Onset: 11-15-2024 11-15-2024 Episodic Other gastrointestinal disorders (1 source) Diarrhea, unspecified; Translations: [Diarrhea] Onset: 11-15-2024 Episodic Other gastrointestinal disorders (2 sources) Personal history of other diseases of the digestive system; Translations: [S/P repair of paraesophageal hernia] Onset: 10-21-2024 Episodic Other injuries and conditions due to external causes (1 source) Unspecified injury of head, initial encounter; Translations: [Unspecified injury of head, initial encounter] Onset: 07-01-2024 Episodic Other lower respiratory disease (7 sources) Shortness of breath; Translations: [Shortness of breath] Onset: 07-20-2024 Episodic Other lower respiratory disease (1 source) Pleurodynia; Translations: [Pleurodynia] Onset: 10-08-2024 Episodic Other nervous system disorders (20 sources) H/O: epilepsy; Translations: [Personal history of other diseases of the nervous system and sense organs] Onset: 12-06-2020 Episodic Other nervous system disorders (20 sources) Abnormal gait; Translations: [Unsteadiness on feet] Onset: 12-06-2020 Episodic Other nervous system disorders (1 source) Unsteadiness on feet; Translations: [Gait instability] Onset: 12-23-2024 Episodic Other nervous system disorders (1 source) Unspecified abnormalities of gait and mobility; Translations: [Abnormality of gait] Onset: 04-13-2021 Episodic Other nervous system disorders (3 sources) Paresthesia of skin; Translations: [Left leg paresthesias] Onset: 08-09-2024 Episodic Other nervous system disorders (1 source) Personal history of other diseases of the nervous system and sense organs; 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] Onset: 12-06-2020 Episodic Other non-traumatic joint disorders (20 sources) Pain in left knee; Translations: [Left knee pain] Onset: 07-19-2024 01-02-2023 Episodic Other non-traumatic joint disorders (1 source) Pain in right knee; Translations: [Pain in right knee] Onset: 06-16-2024 Episodic Other screening for suspected conditions (not mental disorders or infectious disease) (20 sources) Liver function tests abnormal; Translations: [Abnormal results of liver function studies] Onset: 09-07-2024 09-03-2024 Episodic Pancreatic disorders (not diabetes) (3 [...] pulmonale] Onset: 07-19-2024 Episodic Residual codes; unclassified (2 sources) [...] surgery 03-18-2022 Comment on above: LUMBAR FUSION Unclassified (2 sources) Mental state finding 03-17-2025 Results Test Name Value Interpretation Reference Range Facility Emergency Department Summary on 05-03-2025 Emergency Department Summary Normal [facility] CNOVon 05-02-[address] [facility] MR Brain WO contraston 04-17 IMPRESSION: 1. Overall little change when compared with the MRI performed 12/04/2022 2. Moderate to severe generalized brain parenchymal volume loss along with significant presumed microvascular ischemic changes are similar to the prior study 3. No evidence of acute infarct, hemorrhage or mass. Page Makeup System Operator: ARTHUR Transcribe Date/Time: Apr 17 2025 6:11P Dictated by : DEJAH KAPLAN MD This examination was interpreted and the report reviewed and electronically signed by: DEJAH KAPLAN MD on Apr 17 2025 6:15PM 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 Fluctuating mental status with right eyelid ptosis TECHNIQUE: Routine noncontrast MRI protocol including diffusion images. MQ: MRBWO_2 COMPARISON: MRI performed 12/04/2022 RESULT: Acute Change: There is no evidence of restricted diffusion to suggest an acute infarct. Hemorrhage: No evidence of prior parenchymal hemorrhage on the susceptibility weighted images. Mass Lesion/ Mass Effect: No evidence of an intracranial mass or extra-axial fluid collection. No significant mass effect. Chronic Change: Scattered patchy and confluent areas of increased T2 and FLAIR signal are present in the supratentorial white matter which is nonspecific but likely represents chronic microvascular ischemia. Increased FLAIR signal in the posterior medial cervical hemispheres, right greater than left which is unchanged. Overall the white matter changes appear fairly similar compared with the MRI performed 12/04/2022 Parenchyma: There is moderate to severe generalized parenchymal volume loss. The brain parenchyma is otherwise within normal limits of signal intensity and morphology. Ventricles: Ventriculomegaly corresponds to the degree of parenchymal volume loss. Skull Base: Hypothalamic and pituitary region are grossly normal. Craniocervical junction is normal. No significant marrow replacement process. Vasculature: Major intracranial arterial structures, and dural venous sinuses show typical flow void, suggesting patency by spin echo criteria. Other: Mild mucosal thickening in the right maxillary sinus. 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 Fluctuating mental status with right eyelid ptosis TECHNIQUE: Routine noncontrast MRI protocol including diffusion images. MQ: MRBWO_2 COMPARISON: MRI performed 12/04/2022 RESULT: Acute Change: There is no evidence of restricted diffusion to suggest an acute infarct. Hemorrhage: No evidence of prior parenchymal hemorrhage on the susceptibility weighted images. Mass Lesion/ Mass Effect: No evidence of an intracranial mass or extra-axial fluid collection. No significant mass effect. Chronic Change: Scattered patchy and confluent areas of increased T2 and FLAIR signal are present in the supratentorial white matter which is nonspecific but likely represents chronic microvascular ischemia. Increased FLAIR signal in the posterior medial cervical hemispheres, right greater than left which is unchanged. Overall the white matter changes appear fairly similar compared with the MRI performed 12/04/2022 Parenchyma: There is moderate to severe generalized parenchymal volume loss. The brain parenchyma is otherwise within normal limits of signal intensity and morphology. Ventricles: Ventriculomegaly corresponds to the degree of parenchymal volume loss. Skull Base: Hypothalamic and pituitary region are grossly normal. Craniocervical junction is normal. No significant marrow replacement process. Vasculature: Major intracranial arterial structures, and dural venous sinuses show typical flow void, suggesting patency by spin echo criteria. Other: Mild mucosal thickening in the right maxillary sinus. IMPRESSION IMPRESSION: 1. Overall little change when compared with the MRI performed 12/04/2022 2. Moderate to severe generalized brain parenchymal volume loss along with significant presumed microvascular ischemic changes are similar to the prior study 3. No evidence of acute infarct, hemorrhage or mass. Page Makeup System Operator: PSCB Transcribe Date/Time: Apr 17 2025 6:11P Dictated by : DEJAH KAPLAN MD This examination was interpreted and the report reviewed and electronically signed by: DEJAH KAPLAN MD on Apr 17 2025 6:15PM EST [facility] Radiology Study observation (narrative) [facility] MR Brain WO contrastOrdered By: [facility] Provider on 04-17-2025 [facility] MRI BRAIN WO IVCONon 025 MRI BRAIN WO IVCON * * *Final Report* * * DATE OF EXAM: Apr 17 2025 1:42PM [facility] 0294 - MRI BRAIN WO IVCON / PROCEDURE REASON: multiple diagnoses * * * * Physician Interpretation * * * * EXAMINATION: MRI BRAIN WO IVCON 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 Fluctuating mental status with right eyelid ptosis TECHNIQUE: Routine noncontrast MRI protocol including diffusion images. MQ: MRBWO_2 COMPARISON: MRI performed 12/04/2022 RESULT: Acute Change: There is no evidence of restricted diffusion to suggest an acute infarct. Hemorrhage: No evidence of prior parenchymal hemorrhage on the susceptibility weighted images. Mass Lesion/ Mass Effect: No evidence of an intracranial mass or extra-axial fluid collection. No significant mass effect. Chronic Change: Scattered patchy and confluent areas of increased T2 and FLAIR signal are present in the supratentorial white matter which is nonspecific but likely represents chronic microvascular ischemia. Increased FLAIR signal in the posterior medial cervical hemispheres, right greater than left which is unchanged. Overall the white matter changes appear fairly similar compared with the MRI performed 12/04/2022 Parenchyma: There is moderate to severe generalized parenchymal volume loss. The brain parenchyma is otherwise within normal limits of signal intensity and morphology. Ventricles: Ventriculomegaly corresponds to the degree of parenchymal volume loss. Skull Base: Hypothalamic and pituitary region are grossly normal. Craniocervical junction is normal. No significant marrow replacement process. Vasculature: Major intracranial arterial structures, and dural venous sinuses show typical flow void, suggesting patency by spin echo criteria. Other: Mild mucosal thickening in the right maxillary sinus. IMPRESSION: 1. Overall little change when compared with the MRI performed 12/04/2022 2. Moderate to severe generalized brain parenchymal volume loss along with significant presumed microvascular ischemic changes are similar to the prior study 3. No evidence of acute infarct, hemorrhage or mass. Page Makeup System Operator: PSCB Transcribe Date/Time: Apr 17 2025 6:11P Dictated by : DEJAH KAPLAN MD This examination was interpreted and the report reviewed and electronically signed by: DEJAH KAPLAN MD on Apr 17 2025 6:15PM EST [id number] Normal [facility] MR/BMS.BUSon 03-22-2025 MR/BMS.BUS Normal [facility] No Panel InformationOrdered By: Janis Bhandari on 03-22-2025 Negative [facility] 2 mg/dL [facility] 1.015 [facility] 6 [facility] Positive [facility] CNOVon 03-17-[address] [facility] MR/BMS.IMBon 03-14-2025 MR/BMS.IMB Normal [facility] 12 Lead EKGon 03-11-2025 12 Lead EKG Normal [facility] Absolute lymphocyte countOrd ered By: David Gagnon on 03-11-2025 Lymphocytes Auto (Unsp spec) [#/Vol] 1.73 10*3/uL 0.83-4.51 [facility] Anion gap in Serum or Plasma Ordered By: David Gagnon on 03-11-2025 Anion gap [Moles/Vol] 9 mmol/L 5-15 [facility] Automated lymphocyte count a s percentage of total leukocytesOrdered By: David Gagnon on 03-11-2025 Lymphocytes/100 WBC Auto (Unsp spec) 30.9 % 19-41 [facility] BUN/creatinine ratioOrdered By: David Gagnon on 07-25-2025 Urea nitrogen/Creatinine [Mass ratio] 22.9 mg/mg High 10-20 [facility] Basic Metabolic Profile (BMP )on 03-11-2025 BUN/CRE 22.9 RATIO High 10-20 [facility] Comment on above: Performed By: #### L 500.2500, L100.0100 ####[facility] [address] [place], [address] Calcium [Mass/Vol] 8.3 mg/dL Normal 7.6-11.0 [facility] Comment on above: Performed By: #### L 500.2500, L100.0100 ####[facility] [address] [place], [address] Chloride [Moles/Vol] 104 mmol/L Normal 98-108 [facility] Comment on above: Performed By: #### L 500.2500, L100.0100 ####[facility] [address] [place], [address] CO2 [Moles/Vol] 27.4 mmol/L Normal 21.0-32.0 [facility] Comment on above: Performed By: #### L 500.2500, L100.0100 ####[facility] [address] [place], [address] Creatinine [Mass/Vol] 1.01 mg/dL Normal 0.70-1.20 [facility] Comment on above: Performed By: #### L 500.2500, L100.0100 ####[facility] [address] [place], [address] ECRCL 30.85 ml/min Low 50-250 [facility] Comment on above: Performed By: #### L 500.2500, L100.0100 ####[facility] [address] [place], [address] GAP 9 Normal 5-15 [facility] Comment on above: Performed By: #### L 500.2500, L100.0100 ####[facility] [address] [place], [address] GFR/1.73 sq M.predicted among non-blacks MDRD (S/P/Bld) [Vol rate/Area] 56 mL/min/{1.73_m2} Low >60 [facility] Comment on above: Result Comment: mL/m in/1.73m2 CKD-EPI Creatinine Equation (2020) Performed By: #### L 500.2500, L100.0100 ####[facility] [address] [place], [address] Glucose [Mass/Vol] 114 mg/dL High 70-99 [facility] Comment on above: Performed By: #### L 500.2500, L100.0100 ####[facility] [address] [place], [address] Potassium [Moles/Vol] 5.2 mmol/L High 3.3-5.1 [facility] Comment on above: Result Comment: Hemo lysis present, Results??could be affected.?? Performed By: #### L 500.2500, L100.0100 ####[facility] [address] [place], [address] Sodium [Moles/Vol] 140 mmol/L Normal 133-145 [facility] Comment on above: Performed By: #### L 500.2500, L100.0100 ####[facility] [address] [place], [address] Urea nitrogen [Mass/Vol] 23 mg/dL High 4-19 [facility] Comment on above: Performed By: #### L 500.2500, L100.0100 ####[facility] [address] [place], [address] Basophil percentageOrdered B y: David Gagnon on 03-11-2025 Basophils/100 WBC (Bld) 0.5 % 0-1 [facility] Brain/Head without Contrasto n 03-11-2025 Brain/Head without Contrast Normal [facility] CBC W/Diff, Automatedon 02-16 Absolute Lymph 1.73 X10 3/uL Normal 0.83-4.51 [facility] Comment on above: Performed By: #### L 500.2500, L100.0100 ####[facility] [address] [place], [address] Absolute Neut 2.9 X10 3/uL Normal 2.0-7.7 [facility] Comment on above: Performed By: #### L 500.2500, L100.0100 ####[facility] [address] [place], [address] Basophils/100 WBC (Bld) 0.5 % Normal 0-1 [facility] Comment on above: Performed By: #### L 500.2500, L100.0100 ####[facility] [address] [place], [address] Eosinophils/100 WBC (Bld) 6.6 % High 0-5 [facility] Comment on above: Performed By: #### L 500.2500, L100.0100 ####[facility] [address] [place], [address] Erythrocyte distribution width (RBC) [Ratio] 15.5 % High 11.6-14.6 [facility] Comment on above: Performed By: #### L 500.2500, L100.0100 ####[facility] [address] [place], [address] Hematocrit (Bld) [Volume fraction] 31.6 % Low 37-47 [facility] Comment on above: Performed By: #### L 500.2500, L100.0100 ####[facility] [address] [place], [address] Hemoglobin (Bld) [Mass/Vol] 9.5 g/dL Low 12.0-15.0 [facility] Comment on above: Performed By: #### L 500.2500, L100.0100 ####[facility] [address] [place], [address] IG% 0.200 Normal 0.0-0.9 [facility] Comment on above: Result Comment: IG% - Immature Granulocytes (promyelocytes, myelocytes andmetamyelocytes) > 1% indicates that a LEFT SHIFT is Present. Performed By: #### L 500.2500, L100.0100 ####[facility] [address] [place], [address] Lymphocytes/100 WBC (Bld) 30.9 % Normal 19-41 [facility] Comment on above: Performed By: #### L 500.2500, L100.0100 ####[facility] [address] [place], [address] MCH (RBC) [Entitic mass] 28.2 pg Normal 27.0-32.0 [facility] Comment on above: Performed By: #### L 500.2500, L100.0100 ####[facility] [address] [place], [address] MCHC (RBC) [Mass/Vol] 30.1 g/dL Low 32-36 [facility] Comment on above: Performed By: #### L 500.2500, L100.0100 ####[facility] [address] [place], [address] MCV (RBC) [Entitic vol] 93.8 fL Normal 81-99 [facility] Comment on above: Performed By: #### L 500.2500, L100.0100 ####[facility] [address] [place], [address] Monocytes/100 WBC (Bld) 9.1 % Normal 0-10 [facility] Comment on above: Performed By: #### L 500.2500, L100.0100 ####[facility] [address] [place], [address] Neutrophils/100 WBC (Bld) 52.7 % Normal 47-70 [facility] Comment on above: Performed By: #### L 500.2500, L100.0100 ####[facility] [address] [place], [address] Nucleated RBC (Bld) [#/Vol] 0 10*3/uL Normal 0-5 [facility] Comment on above: Performed By: #### L 500.2500, L100.0100 ####[facility] [address] [place], [address] Platelet mean volume (Bld) [Entitic vol] 11.2 fL Normal 6.2-12.0 [facility] Comment on above: Performed By: #### L 500.2500, L100.0100 ####[facility] [address] [place], [address] Platelets (Bld) [#/Vol] 196 10*3/uL Normal 150-450 [facility] Comment on above: Performed By: #### L 500.2500, L100.0100 ####[facility] [address] [place], [address] RBC (Bld) [#/Vol] 3.37 10*6/uL Low 4.2-5.4 [facility] Comment on above: Performed By: #### L 500.2500, L100.0100 ####[facility] [id number] [place], [address] RDW SD 53.4 fl High 35.1-43.9 [facility] Comment on above: Performed By: #### L 500.2500, L100.0100 ####[facility] [id number] [place], [address] WBC (Bld) [#/Vol] 5.6 10*3/uL Normal 4.4-11.0 [facility] Comment on above: Performed By: #### L 500.2500, L100.0100 ####[facility] [id number] [place], [address] Carbon dioxide, total [Moles /volume] in Central venous bloodOrdered By: David Gagnon on 03-11-2025 CO2 [Moles/Vol] 27.4 mmol/L 21.0-32.0 [facility] Chest 1 View (Portable)on Chest 1 View (Portable) Normal [facility] Chloride assayOrdered By: Alie Gagnon on 03-11-2025 Chloride [Moles/Vol] 104 mmol/L 98-108 [facility] Emergency Department Summary on 03-11-2025 Emergency Department Summary Normal [facility] Eosinophil percentageOrdered By: David Gagnon on 03-11-2025 Eosinophils/100 WBC (Bld) 6.6 % High 0-5 [facility] Erythrocyte distribution wid th ratioOrdered By: David Gagnon on 03-11-2025 Erythrocyte distribution width (RBC) [Ratio] 15.5 % High 11.6-14.6 [facility] Erythrocyte distribution wid th standard deviationOrdered By: David Gagnon on 03-11-2025 Erythrocyte distribution width (RBC) [Ratio] 53.4 fl High 35.1-43.9 [facility] Glomerular filtration rate ( GFR) estimation/1.73 sq m using serum, plasma, or whole bOrdered By: David Gagnon on 03-11-2025 GFR/1.73 sq M.predicted among non-blacks MDRD (S/P/Bld) [Vol rate/Area] 56 mL/min/{1.73_m2} Low >60 [facility] Hematocrit Auto (Bld) [Volum e fraction]Ordered By: David Gagnon on 03-11-2025 Hematocrit (Bld) [Volume fraction] 31.6 % Low 37-47 [facility] Hemoglobin measurementOrdere d By: David Gagnon on 03-11-2025 Hemoglobin (Bld) [Mass/Vol] 9.5 g/dL Low 12.0-15.0 [facility] Immature granulocytes/100 WB C Auto (Bld)Ordered By: David Gagnon on 03-11-2025 Immature granulocytes/100 WBC (Bld) 0.200 % 0.0-0.9 [facility] L501.4021on 03-11-2025 Trop T High Sen 27 ng/L High <=14 [facility] Comment on above: Result Comment: Hemo lysis present, Results??could be affected.?? Performed By: #### L 503.7505, L501.4021 ####[facility] [id number] [place], [address] MCV (mean corpuscular volume ) determinationOrdered By: David Gagnon on 03-11-2025 MCV (RBC) [Entitic vol] 93.8 fL 81-99 [facility] Mean corpuscular hemoglobin (MCH) determinationOrdered By: David Gagnon on 03-11-2025 MCH (RBC) [Entitic mass] 28.2 pg 27.0-32.0 [facility] Monocyte percentageOrdered B y: David Gagnon on 03-11-2025 Monocytes/100 WBC (Bld) 9.1 % 0-10 [facility] Natriuretic peptide.B prohor rick N-Terminal [Mass/volume] in Serum or PlasmaOrdered By: David Gagnon on 03-11-2025 Natriuretic peptide.B prohormone N-Terminal [Mass/Vol] 346 pg/mL <1800 [facility] Neutrophil percentageOrdered By: David Gagnon on 03-11-2025 Neutrophils/100 WBC (Bld) 52.7 % 47-70 [facility] Platelet countOrdered By: Alie Gagnon on 03-11-2025 Platelets (Bld) [#/Vol] 196 10*3/uL 150-450 [facility] Potassium measurement (mass/ volume)Ordered By: David Gagnon on 03-11-2025 Potassium (Unsp spec) [Mass/Vol] 5.2 mmol/L High 3.3-5.1 [facility] Pro- Brain NATRIURETIC PEPTI Nemesio 03-11-2025 Natriuretic peptide B (Bld) [Mass/Vol] 346 pg/mL Normal <=1800 [facility] Comment on above: Result Comment: Hear t Failure Unlikely: < 300 pg/mLHeart Failure Likely< 50 Years: > 450 pg/mL50-75 Years: > 900 pg/mL>75 Years: > 1800 pg/mL Performed By: #### L 503.7505, L501.4021 ####[facility] [id number] [place], [place], [id number] RBC Auto (Bld) [#/Vol]Ordere d By: David Gagnon on 03-11-2025 RBC (Bld) [#/Vol] 3.37 10*6/uL Low 4.2-5.4 [facility] Serum creatinine measurement (mass/volume)Ordered By: David Gagnon on 03-11-2025 Creatinine [Mass/Vol] 1.01 mg/dL 0.70-1.20 [facility] Serum glucose measurement (m ass/volume)Ordered By: David Gagnon on 03-11-2025 Glucose [Mass/Vol] 114 mg/dL High 70-99 [facility] Serum or plasma calcium osiris urement (mass/volume)Ordered By: David Gagnon on 03-11-2025 Calcium [Mass/Vol] 8.3 mg/dL 7.6-11.0 [facility] Serum or plasma urea nitroge n measurement (mass/volume)Ordered By: David Gagnon on 03-11-2025 Urea nitrogen [Mass/Vol] 23 mg/dL High 4-19 [facility] Sodium levelOrdered By: Chad Gagnon on 03-11-2025 Sodium [Moles/Vol] 140 mmol/L 133-145 [facility] Troponin T HS 2 HRon 025 Trop T High Sen 24 ng/L High <=14 [facility] Comment on above: Result Comment: Hemo lysis present, Results??could be affected.?? Performed By: #### L 499.0042 ####[facility] [id number] [place], [place], [address] Troponin T HS 4 HRon 025 Trop T High Sen Normal <=14 [facility] Comment on above: Result Comment: DEP FROM ED Performed By: #### L 499.0043 ####[facility] [id number] [place], [place], [id number] Troponin T.cardiac [Mass/vol ume] in Serum or Plasma by High sensitivity methodOrdered By: David Gagnon on 03-11-2025 Troponin T.cardiac High sensitivity method [Mass/Vol] 24 ng/L High <14 [facility] Troponin T.cardiac High sensitivity method [Mass/Vol] 27 ng/L High <14 [facility] White blood cell (WBC) count Ordered By: David Gagnon on 03-11-2025 WBC (Bld) [#/Vol] 5.6 10*3/uL 4.4-11.0 [facility] Absolute lymphocyte countOrd ered By: Susana Calderon on 02-22-2025 Lymphocytes Auto (Unsp spec) [#/Vol] 2.03 10*3/uL 0.83-4.51 [facility] Anion gap in Serum or Plasma Ordered By: Susana Calderon on 02-22-2025 Anion gap [Moles/Vol] 8 mmol/L 5-15 [facility] Automated lymphocyte count a s percentage of total leukocytesOrdered By: Susana Calderon on 02-22-2025 Lymphocytes/100 WBC Auto (Unsp spec) 41.3 % High 19-41 [facility] BUN/creatinine ratioOrdered By: Susana Calderon on 02-22-2025 Urea nitrogen/Creatinine [Mass ratio] 23.5 mg/mg High 10-20 [facility] Basophil percentageOrdered B y: Susana Calderon on 02-22-2025 Basophils/100 WBC (Bld) 1.2 % High 0-1 [facility] Carbon dioxide, total [Moles /volume] in Central venous bloodOrdered By: Susana Calderon on 02-22-2025 CO2 [Moles/Vol] 25.4 mmol/L 21.0-32.0 [facility] Chloride assayOrdered By: Ryan Calderon on 02-22-2025 Chloride [Moles/Vol] 105 mmol/L 98-108 [facility] Clavicleon 02-22-2025 Clavicle Normal [facility] Eosinophil percentageOrdered By: Susana Calderon on 02-22-2025 Eosinophils/100 WBC (Bld) 5.3 % High 0-5 [facility] Erythrocyte distribution wid th ratioOrdered By: Susana Calderon on 02-22-2025 Erythrocyte distribution width (RBC) [Ratio] 15.4 % High 11.6-14.6 [facility] Erythrocyte distribution wid th standard deviationOrdered By: Susana Calderon on 02-22-2025 Erythrocyte distribution width (RBC) [Ratio] 50.7 fl High 35.1-43.9 [facility] Glomerular filtration rate ( GFR) estimation/1.73 sq m using serum, plasma, or whole bOrdered By: Susana Calderon on 02-22-2025 GFR/1.73 sq M.predicted among non-blacks MDRD (S/P/Bld) [Vol rate/Area] 72 mL/min/{1.73_m2} >60 [facility] Hematocrit Auto (Bld) [Volum e fraction]Ordered By: Susana Calderon on 02-22-2025 Hematocrit (Bld) [Volume fraction] 33.1 % Low 37-47 [facility] Hemoglobin measurementOrdere d By: Susana Calderon on 02-22-2025 Hemoglobin (Bld) [Mass/Vol] 10.3 g/dL Low 12.0-15.0 [facility] Immature granulocytes/100 WB C Auto (Bld)Ordered By: Susana Calderon on 02-22-2025 Immature granulocytes/100 WBC (Bld) 0.400 % 0.0-0.9 [facility] MCV (mean corpuscular volume ) determinationOrdered By: Susana Calderon on 02-22-2025 MCV (RBC) [Entitic vol] 91.7 fL 81-99 [facility] Mean corpuscular hemoglobin (MCH) determinationOrdered By: Susana Calderon on 02-22-2025 MCH (RBC) [Entitic mass] 28.5 pg 27.0-32.0 [facility] Monocyte percentageOrdered B y: Susana Calderon on 02-22-2025 Monocytes/100 WBC (Bld) 8.5 % 0-10 [facility] Neutrophil percentageOrdered By: Susana Calderon on 02-22-2025 Neutrophils/100 WBC (Bld) 43.3 % Low 47-70 [facility] Orthopedic Visit Reporton Orthopedic Visit Report Normal [facility] Platelet countOrdered By: Ryan Calderon on 02-22-2025 Platelets (Bld) [#/Vol] 237 10*3/uL 150-450 [facility] Potassium measurement (mass/ volume)Ordered By: Susana Calderon on 02-22-2025 Potassium (Unsp spec) [Mass/Vol] 4.4 mmol/L 3.3-5.1 [facility] RBC Auto (Bld) [#/Vol]Ordere d By: Susana Calderon on 02-22-2025 RBC (Bld) [#/Vol] 3.61 10*6/uL Low 4.2-5.4 [facility] Serum creatinine measurement (mass/volume)Ordered By: Susana Calderon on 02-22-2025 Creatinine [Mass/Vol] 0.82 mg/dL 0.70-1.20 [facility] Serum glucose measurement (m ass/volume)Ordered By: Susana Calderon on 02-22-2025 Glucose [Mass/Vol] 79 mg/dL 70-99 [facility] Serum or plasma calcium osiris urement (mass/volume)Ordered By: Susana Calderon on 02-22-2025 Calcium [Mass/Vol] 8.9 mg/dL 7.6-11.0 [facility] Serum or plasma urea nitroge n measurement (mass/volume)Ordered By: Susana Calderon on 02-22-2025 Urea nitrogen [Mass/Vol] 19 mg/dL 4-19 [facility] Sodium levelOrdered By: Merle Calderon on 02-22-2025 Sodium [Moles/Vol] 138 mmol/L 133-145 [facility] White blood cell (WBC) count Ordered By: Susana Calderon on 02-22-2025 WBC (Bld) [#/Vol] 4.9 10*3/uL 4.4-11.0 [facility] Absolute lymphocyte countOrd ered By: Susana Calderon on 02-14-2025 Lymphocytes Auto (Unsp spec) [#/Vol] 1.82 10*3/uL 0.83-4.51 [facility] Anion gap in Serum or Plasma Ordered By: Susana Calderon on 02-14-2025 Anion gap [Moles/Vol] 11 mmol/L 5-15 [facility] Automated lymphocyte count a s percentage of total leukocytesOrdered By: Susana Calderon on 02-14-2025 Lymphocytes/100 WBC Auto (Unsp spec) 42.0 % High 19-41 [facility] BUN/creatinine ratioOrdered By: Susana Calderon on 02-14-2025 Urea nitrogen/Creatinine [Mass ratio] 22.2 mg/mg High 10-20 [facility] Basophil percentageOrdered B y: Susana Calderon on 02-14-2025 Basophils/100 WBC (Bld) 1.4 % High 0-1 [facility] Bilirubin directOrdered By: Susana Calderon on 02-14-2025 Bilirubin.direct [Mass/Vol] 0.19 mg/dL 0.00-0.30 [facility] Bilirubin, totalOrdered By: Susana Calderon on 02-14-2025 Bilirubin [Mass/Vol] 0.41 mg/dL 0.00-1.30 [facility] Calculated very low density lipoprotein (VLDL) cholesterol measurementOrdered By: Susana Calderon on 02-14-2025 Calculated very low density lipoprotein (VLDL) cholesterol measurement 29 mg/dL 5-40 [facility] Carbon dioxide, total [Moles /volume] in Central venous bloodOrdered By: Susana Calderon on 02-14-2025 CO2 [Moles/Vol] 21.4 mmol/L 21.0-32.0 [facility] Chloride assayOrdered By: Ryan Calderon on 02-14-2025 Chloride [Moles/Vol] 106 mmol/L 98-108 [facility] Eosinophil percentageOrdered By: Susana Calderon on 02-14-2025 Eosinophils/100 WBC (Bld) 7.2 % High 0-5 [facility] Erythrocyte distribution wid th ratioOrdered By: Susana Calderon on 02-14-2025 Erythrocyte distribution width (RBC) [Ratio] 14.6 % 11.6-14.6 [facility] Erythrocyte distribution wid th standard deviationOrdered By: Susana Calderon on 02-14-2025 Erythrocyte distribution width (RBC) [Ratio] 48.3 fl High 35.1-43.9 [facility] Glomerular filtration rate ( GFR) estimation/1.73 sq m using serum, plasma, or whole bOrdered By: Susana Calderon on 02-14-2025 GFR/1.73 sq M.predicted among non-blacks MDRD (S/P/Bld) [Vol rate/Area] 85 mL/min/{1.73_m2} >60 [facility] Hematocrit Auto (Bld) [Volum e fraction]Ordered By: Susana Calderon on 02-14-2025 Hematocrit (Bld) [Volume fraction] 32.4 % Low 37-47 [facility] Hemoglobin measurementOrdere d By: Susana Calderon on 02-14-2025 Hemoglobin (Bld) [Mass/Vol] 10.2 g/dL Low 12.0-15.0 [facility] Immature granulocytes/100 WB C Auto (Bld)Ordered By: Susana Calderon on 02-14-2025 Immature granulocytes/100 WBC (Bld) 0.200 % 0.0-0.9 [facility] LDL calc ser/plasOrdered By: Susana Calderon on 02-14-2025 Cholesterol in LDL [Mass/Vol] 44 mg/dL [facility] MCV (mean corpuscular volume ) determinationOrdered By: Susana Calderon on 02-14-2025 MCV (RBC) [Entitic vol] 91.3 fL 81-99 [facility] Mean corpuscular hemoglobin (MCH) determinationOrdered By: Susana Calderon on 02-14-2025 MCH (RBC) [Entitic mass] 28.7 pg 27.0-32.0 [facility] Monocyte percentageOrdered B y: Susana Calderon on 02-14-2025 Monocytes/100 WBC (Bld) 7.6 % 0-10 [facility] Neutrophil percentageOrdered By: Susana Calderon on 02-14-2025 Neutrophils/100 WBC (Bld) 41.6 % Low 47-70 [facility] No Panel InformationOrdered By: Susana Calderon on 02-14-2025 42 U/L High <32 [facility] Platelet countOrdered By: Ryan Calderon on 02-14-2025 Platelets (Bld) [#/Vol] 201 10*3/uL 150-450 [facility] Potassium measurement (mass/ volume)Ordered By: Susana Calderon on 02-14-2025 Potassium (Unsp spec) [Mass/Vol] 4.2 mmol/L 3.3-5.1 [facility] RBC Auto (Bld) [#/Vol]Ordere d By: Susana Calderon on 02-14-2025 RBC (Bld) [#/Vol] 3.55 10*6/uL Low 4.2-5.4 [facility] Serum creatinine measurement (mass/volume)Ordered By: Susana Calderon on 02-14-2025 Creatinine [Mass/Vol] 0.71 mg/dL 0.70-1.20 [facility] Serum globulin measurementOr dered By: Susana Calderon on 02-14-2025 Globulin (S) [Mass/Vol] 2.7 g/dL 2.2-4.2 [facility] Serum glucose measurement (m ass/volume)Ordered By: Susana Calderon on 02-14-2025 Glucose [Mass/Vol] 76 mg/dL 70-99 [facility] Serum or plasma alanine ruano otransferase (ALT) measurementOrdered By: Susana Calderon on 02-14-2025 ALT [Catalytic activity/Vol] 22 U/L <35 [facility] Serum or plasma albumin osiris urement (mass/volume)Ordered By: Susana Calderon on 02-14-2025 Albumin [Mass/Vol] 3.3 g/dL Low 3.4-4.8 [facility] Serum or plasma alkaline antelmo sphatase measurementOrdered By: Susana Calderon on 02-14-2025 ALP [Catalytic activity/Vol] 96 U/L 35-104 [facility] Serum or plasma calcium osiris urement (mass/volume)Ordered By: Susana Calderon on 02-14-2025 Calcium [Mass/Vol] 8.6 mg/dL 7.6-11.0 [facility] Serum or plasma cholesterol in HDL measurement (mass/volume)Ordered By: Susana Calderon on 02-14-2025 Cholesterol in HDL [Mass/Vol] 37 mg/dL Low >40 [facility] Serum or plasma cholesterol measurement (mass/volume)Ordered By: Susana Calderon on 02-14-2025 Cholesterol [Mass/Vol] 110 mg/dL <201 [facility] Serum or plasma urea nitroge n measurement (mass/volume)Ordered By: Susana Calderon on 02-14-2025 Urea nitrogen [Mass/Vol] 16 mg/dL 4-19 [facility] Sodium levelOrdered By: Merle Calderon on 02-14-2025 Sodium [Moles/Vol] 138 mmol/L 133-145 [facility] TSH DL <= 0.005 mIU/L QnOrde red By: Susana Calderon on 02-14-2025 TSH Qn 2.350 uIU/mL 0.300-4.200 [facility] Total proteinOrdered By: Ming Calderon on 02-14-2025 Protein [Mass/Vol] 6.0 g/dL 5.9-8.4 [facility] Vitamin B12 ser/plasOrdered By: Susana Calderon on 02-14-2025 Cobalamin (Vitamin B12) [Mass/Vol] 1430 pg/mL High 180-914 [facility] White blood cell (WBC) count Ordered By: Susana Calderon on 02-14-2025 WBC (Bld) [#/Vol] 4.3 10*3/uL Low 4.4-11.0 [facility] Absolute lymphocyte countOrd ered By: Bryant Melendrez on 02-10-2025 Lymphocytes Auto (Unsp spec) [#/Vol] 1.28 10*3/uL 0.83-4.51 [facility] Anion gap in Serum or Plasma Ordered By: Bryant Melendrez on 02-10-2025 Anion gap [Moles/Vol] 11 mmol/L 5-15 [facility] Automated lymphocyte count a s percentage of total leukocytesOrdered By: Bryant Melendrez on 02-10-2025 Lymphocytes/100 WBC Auto (Unsp spec) 31.4 % 19-41 [facility] BUN/creatinine ratioOrdered By: Bryant Melendrez on 02-10-2025 Urea nitrogen/Creatinine [Mass ratio] 12.7 mg/mg 10-20 [facility] Basophil percentageOrdered B y: Bryant Melendrez on 02-10-2025 Basophils/100 WBC (Bld) 1.0 % 0-1 [facility] Bilirubin, totalOrdered By: Bryant Melendrez on 02-10-2025 Bilirubin [Mass/Vol] 0.71 mg/dL 0.00-1.30 [facility] Calculated very low density lipoprotein (VLDL) cholesterol measurementOrdered By: Bryant Melendrez on 02-10-2025 Calculated very low density lipoprotein (VLDL) cholesterol measurement 20 mg/dL 5-40 [facility] Carbon dioxide, total [Moles /volume] in Central venous bloodOrdered By: Bryant Melendrez on 02-10-2025 CO2 [Moles/Vol] 26.6 mmol/L 21.0-32.0 [facility] Chloride assayOrdered By: Saadia Melendrez on 02-10-2025 Chloride [Moles/Vol] 101 mmol/L 98-108 [facility] Eosinophil percentageOrdered By: Bryant Melendrez on 02-10-2025 Eosinophils/100 WBC (Bld) 5.7 % High 0-5 [facility] Erythrocyte distribution wid th ratioOrdered By: Bryant Melendrez on 02-10-2025 Erythrocyte distribution width (RBC) [Ratio] 13.5 % 11.6-14.6 [facility] Erythrocyte distribution wid th standard deviationOrdered By: Bryant Melendrez on 02-10-2025 Erythrocyte distribution width (RBC) [Ratio] 43.0 fl 35.1-43.9 [facility] Glomerular filtration rate ( GFR) estimation/1.73 sq m using serum, plasma, or whole bOrdered By: Bryant Melendrez on 02-10-2025 GFR/1.73 sq M.predicted among non-blacks MDRD (S/P/Bld) [Vol rate/Area] 77 mL/min/{1.73_m2} >60 [facility] Hematocrit Auto (Bld) [Volum e fraction]Ordered By: Bryant Melendrez on 02-10-2025 Hematocrit (Bld) [Volume fraction] 33.2 % Low 37-47 [facility] Hemoglobin measurementOrdere d By: Bryant Melendrez on 02-10-2025 Hemoglobin (Bld) [Mass/Vol] 10.5 g/dL Low 12.0-15.0 [facility] Immature granulocytes/100 WB C Auto (Bld)Ordered By: Bryant Melendrez on 02-10-2025 Immature granulocytes/100 WBC (Bld) 0.200 % 0.0-0.9 [facility] LDL calc ser/plasOrdered By: Bryant Melendrez on 02-10-2025 Cholesterol in LDL [Mass/Vol] 50 mg/dL [facility] MCV (mean corpuscular volume ) determinationOrdered By: saniya Melendrez on 02-10-2025 MCV (RBC) [Entitic vol] 89.2 fL 81-99 [facility] Mean corpuscular hemoglobin (MCH) determinationOrdered By: saniya Melendrez on 02-10-2025 MCH (RBC) [Entitic mass] 28.2 pg 27.0-32.0 [facility] Monocyte percentageOrdered B y: Bryant Melendrez on 02-10-2025 Monocytes/100 WBC (Bld) 9.3 % 0-10 [facility] Neutrophil percentageOrdered By: [facility] on 02-10-2025 Neutrophils/100 WBC (Bld) 52.4 % 47-70 [facility] No Panel InformationOrdered By: Bryant Melendrez on 02-10-2025 26 U/L <32 [facility] Platelet countOrdered By: Saadia vincenzomendez Melendrez on 02-10-2025 Platelets (Bld) [#/Vol] 211 10*3/uL 150-450 [facility] Potassium measurement (mass/ volume)Ordered By: Bryant Melendrez on 02-10-2025 Potassium (Unsp spec) [Mass/Vol] 3.9 mmol/L 3.3-5.1 [facility] RBC Auto (Bld) [#/Vol]Ordere d By: Bryant Melendrez on 02-10-2025 RBC (Bld) [#/Vol] 3.72 10*6/uL Low 4.2-5.4 [facility] Serum creatinine measurement (mass/volume)Ordered By: Bryant Melendrez on 02-10-2025 Creatinine [Mass/Vol] 0.77 mg/dL 0.70-1.20 [facility] Serum globulin measurementOr dered By: Bryant Melendrez on 02-10-2025 Globulin (S) [Mass/Vol] 3.0 g/dL 2.2-4.2 [facility] Serum glucose measurement (m ass/volume)Ordered By: Bryant Melendrez on 02-10-2025 Glucose [Mass/Vol] 97 mg/dL 70-99 [facility] Serum or plasma alanine ruano otransferase (ALT) measurementOrdered By: Bryant Melendrez on 02-10-2025 ALT [Catalytic activity/Vol] 13 U/L <35 [facility] Serum or plasma albumin osiris urement (mass/volume)Ordered By: Bryant Melendrez on 02-10-2025 Albumin [Mass/Vol] 3.6 g/dL 3.4-4.8 [facility] Serum or plasma albumin/glob ulin mass ratioOrdered By: Bryant Melendrez on 02-10-2025 Albumin/Globulin [Mass ratio] 1.2 {ratio} 0.9-2.4 [facility] Serum or plasma alkaline antelmo sphatase measurementOrdered By: Bryant Melendrez on 02-10-2025 ALP [Catalytic activity/Vol] 111 U/L High 35-104 [facility] Serum or plasma calcium osiris urement (mass/volume)Ordered By: Bryant Melendrez on 02-10-2025 Calcium [Mass/Vol] 9.1 mg/dL 7.6-11.0 [facility] Serum or plasma cholesterol in HDL measurement (mass/volume)Ordered By: Bryant Melendrez on 02-10-2025 Cholesterol in HDL [Mass/Vol] 46 mg/dL >40 [facility] Serum or plasma cholesterol measurement (mass/volume)Ordered By: Bryant Melendrez on 02-10-2025 Cholesterol [Mass/Vol] 115 mg/dL <201 [facility] Serum or plasma urea nitroge n measurement (mass/volume)Ordered By: Bryant Melendrez on 02-10-2025 Urea nitrogen [Mass/Vol] 10 mg/dL 4-19 [facility] Sodium levelOrdered By: Patricia mendez Parvin on 02-10-2025 Sodium [Moles/Vol] 138 mmol/L 133-145 [facility] TSH DL <= 0.005 mIU/L QnOrde red By: Bryant Longoalejandrozaki on 02-10-2025 TSH Qn 6.500 uIU/mL High 0.300-4.200 [facility] Total proteinOrdered By: Binu Melendrez on 02-10-2025 Protein [Mass/Vol] 6.6 g/dL 5.9-8.4 [facility] Vitamin B12 ser/plasOrdered By: Bryant Melendrez on 02-10-2025 Cobalamin (Vitamin B12) [Mass/Vol] 1635 pg/mL High 180-914 [facility] White blood cell (WBC) count Ordered By: Bryant Melendrez on 02-10-2025 WBC (Bld) [#/Vol] 4.1 10*3/uL Low 4.4-11.0 [facility] Bilirubin Test strip Ql (U)O rdered By: Bryant Melendrez on 02-09-2025 Bilirubin Ql (U) Negative Negative [facility] Ketones Test strip Ql (U)Ord ered By: Bryant Melendrez on 02-09-2025 Ketones Ql (U) 15 mg/dl High Negative [facility] Nitrite Test strip Ql (U)Ord ered By: Bryant Melendrez on 02-09-2025 Nitrite Ql (U) Negative Negative [facility] Protein Test strip Ql (U)Ord ered By: Bryant Melendrez on 02-09-2025 Protein Ql (U) Negative Negative [facility] Urine clarityOrdered By: Binu Melendrez on 02-09-2025 Clarity (U) Clear Clear [facility] Urine color determinationOrd ered By: Bryant Melendrez on 02-09-2025 Color (U) Yellow Yellow [facility] Urine glucose detectionOrder ed By: Bryant Melendrez on 02-09-2025 Glucose Ql (U) Normal mg/dl Normal [facility] Urine leukocyte esterase det ection by dipstickOrdered By: Bryant Melendrez on 02-09-2025 Leukocyte esterase Test strip Ql (U) Negative Negative [facility] Urine pHOrdered By: Joby Melendrez on 02-09-2025 pH (U) 8.0 [pH] 5.0 - 8.0 [facility] Urine specific gravity measu rementOrdered By: Bryant Melendrez on 02-09-2025 Specific gravity (U) [Rel density] 1.010 1.002-1.030 [facility] Urine urobilinogen measureme ntOrdered By: Bryant Melendrez on 02-09-2025 Urobilinogen Ql (U) 4 mg/dl High Normal [facility] Electrocardiogram reportOrde red By: Rolando Griffith on 02-08-2025 EKG study [facility] [address] [place] [address] 12 Lead EKG 02/07/25 1830 MR#: [id number] Acct: [id number] Name: LAUREN ALCARAZ Rep #: [id number] : 1940 84 From: Rolando Griffith MD Attending Dr: Dr. Vincent Camp, Status: ADM COMFORT Ordering Dr: Vincent Camp DO Date: [place] [facility] [place]: F C Admitted: 02/06/25 Test Reason : chest pain Blood Pressure : */* mmHG Vent. Rate : 68 BPM Atrial Rate : 68 BPM P-R Int : 188 ms QRS Dur : 80 ms QT Int : 410 ms P-R-T Axes : 49 -5 35 degrees QTcB Int : 435 ms Normal sinus rhythm Cannot rule out Anterior infarct (cited on or before 22-Jan-2021) Abnormal ECG When compared with ECG of 05-Oct-2021 14:17, Criteria for Inferior infarct are no longer Present Questionable change in initial forces of Anterolateral leads Confirmed by NACHO COHEN, ROLANDO ([id number]), video tape editor MARNIE VIZCARRA ([id number]) on 511:53:31 AM Referred By: Conrado Confirmed By: ROLANDO GRIFFITH MD 02/08/25 1153 Date _ Rolando Griffith MD CC: Dr. Vincent Camp, DO; Dr. Chema Perry MD ~ Signed [facility] Other 12 Lead EKGon 02-07-2025 12 Lead EKG Normal [facility] Anion gap in Serum or Plasma Ordered By: Kana Whitt on 02-06-2025 Anion gap [Moles/Vol] 9 mmol/L 5-15 [facility] BUN/creatinine ratioOrdered By: Kana Whitt on 02-06-2025 Urea nitrogen/Creatinine [Mass ratio] 18.3 mg/mg 10-20 [facility] Bilirubin, totalOrdered By: Kana Whitt on 02-06-2025 Bilirubin [Mass/Vol] 0.54 mg/dL 0.00-1.30 [facility] CBC-Complete Blood Cnt No Di ffon 02-06-2025 Erythrocyte distribution width (RBC) [Ratio] 13.3 % Normal 11.6-14.6 [facility] Comment on above: Performed By: #### L 100.0500, L500.4050 ####[facility] [address] [place], [address] Hematocrit (Bld) [Volume fraction] 29.5 % Low 37-47 [facility] Comment on above: Performed By: #### L 100.0500, L500.4050 ####[facility] [address] [place], [address] Hemoglobin (Bld) [Mass/Vol] 9.2 g/dL Low 12.0-15.0 [facility] Comment on above: Performed By: #### L 100.0500, L500.4050 ####[facility] [address] [place], [address] MCH (RBC) [Entitic mass] 28.5 pg Normal 27.0-32.0 [facility] Comment on above: Performed By: #### L 100.0500, L500.4050 ####[facility] [address] [place], [id number] MCHC (RBC) [Mass/Vol] 31.2 g/dL Low 32-36 [facility] Comment on above: Performed By: #### L 100.0500, L500.4050 ####[facility] [address] [place], [id number] MCV (RBC) [Entitic vol] 91.3 fL Normal 81-99 [facility] Comment on above: Performed By: #### L 100.0500, L500.4050 ####[facility] [address] [place], [address] Platelet mean volume (Bld) [Entitic vol] 10.4 fL Normal 6.2-12.0 [facility] Comment on above: Performed By: #### L 100.0500, L500.4050 ####[facility] [address] [place], [id number] Platelets (Bld) [#/Vol] 143 10*3/uL Low 150-450 [facility] Comment on above: Performed By: #### L 100.0500, L500.4050 ####[facility] [address] [place], [address] RBC (Bld) [#/Vol] 3.23 10*6/uL Low 4.2-5.4 [facility] Comment on above: Performed By: #### L 100.0500, L500.4050 ####[facility] [address] [place], [id number] RDW SD 43.9 fl Normal 35.1-43.9 [facility] Comment on above: Performed By: #### L 100.0500, L500.4050 ####[facility] [address] [place], [address] WBC (Bld) [#/Vol] 4.8 10*3/uL Normal 4.4-11.0 [facility] Comment on above: Performed By: #### L 100.0500, L500.4050 ####[facility] [address] [place], [address] Carbon dioxide, total [Moles /volume] in Central venous bloodOrdered By: Kana Whitt on 02-06-2025 CO2 [Moles/Vol] 27.4 mmol/L 21.0-32.0 [facility] Chloride assayOrdered By: Rafael Whitt on 02-06-2025 Chloride [Moles/Vol] 101 mmol/L 98-108 [facility] Clavicleon 02-06-2025 Clavicle Normal [facility] Comprehensive Metabolic Prof ilon 02-06-2025 Albumin [Mass/Vol] 3.3 g/dL Low 3.4-4.8 [facility] Comment on above: Performed By: #### L 100.0500, L500.4050 ####[facility] [address] [place], [address] Albumin/Globulin [Mass ratio] 1.2 {ratio} Normal 0.9-2.4 [facility] Comment on above: Performed By: #### L 100.0500, L500.4050 ####[facility] [address] [place], [address] ALK PHOS 98 U/L Normal 35-104 [facility] Comment on above: Performed By: #### L 100.0500, L500.4050 ####[facility] [address] [place], [address] ALT [Catalytic activity/Vol] 14 U/L Normal <=34 [facility] Comment on above: Performed By: #### L 100.0500, L500.4050 ####[facility] [address] [place], [address] AST [Catalytic activity/Vol] 24 U/L Normal <=31 [facility] Comment on above: Performed By: #### L 100.0500, L500.4050 ####[facility] [address] [place], [address] Bilirubin [Mass/Vol] 0.54 mg/dL Normal 0.00-1.30 [facility] Comment on above: Performed By: #### L 100.0500, L500.4050 ####[facility] [address] [place], [address] BUN/CRE 18.3 RATIO Normal 10-20 [facility] Comment on above: Performed By: #### L 100.0500, L500.4050 ####[facility] [address] [place], [address] Calcium [Mass/Vol] 8.7 mg/dL Normal 7.6-11.0 [facility] Comment on above: Performed By: #### L 100.0500, L500.4050 ####[facility] [address] [place], [address] Chloride [Moles/Vol] 101 mmol/L Normal 98-108 [facility] Comment on above: Performed By: #### L 100.0500, L500.4050 ####[facility] [address] [place], [address] CO2 [Moles/Vol] 27.4 mmol/L Normal 21.0-32.0 [facility] Comment on above: Performed By: #### L 100.0500, L500.4050 ####[facility] [address] [place], [address] Creatinine [Mass/Vol] 0.88 mg/dL Normal 0.70-1.20 [facility] Comment on above: Performed By: #### L 100.0500, L500.4050 ####[facility] [address] [place], [address] ECRCL 35.40 ml/min Low 50-250 [facility] Comment on above: Performed By: #### L 100.0500, L500.4050 ####[facility] [address] [place], [address] GAP 9 Normal 5-15 [facility] Comment on above: Performed By: #### L 100.0500, L500.4050 ####[facility] [address] [place], [address] GFR/1.73 sq M.predicted among non-blacks MDRD (S/P/Bld) [Vol rate/Area] 66 mL/min/{1.73_m2} Normal >60 [facility] Comment on above: Result Comment: mL/m in/1.73m2 CKD-EPI Creatinine Equation (2020) Performed By: #### L 100.0500, L500.4050 ####[facility] [address] [place], [address] Globulin (S) [Mass/Vol] 2.8 g/dL Normal 2.2-4.2 [facility] Comment on above: Performed By: #### L 100.0500, L500.4050 ####[facility] [address] [place], [address] Glucose [Mass/Vol] 107 mg/dL High 70-99 [facility] Comment on above: Performed By: #### L 100.0500, L500.4050 ####[facility] [address] [place], [address] Potassium [Moles/Vol] 4.0 mmol/L Normal 3.3-5.1 [facility] Comment on above: Performed By: #### L 100.0500, L500.4050 ####[facility] [address] [place], [address] Sodium [Moles/Vol] 137 mmol/L Normal 133-145 [facility] Comment on above: Performed By: #### L 100.0500, L500.4050 ####[facility] [address] [place], [address] T PROT 6.2 g/dL Normal 5.9-8.4 [facility] Comment on above: Performed By: #### L 100.0500, L500.4050 ####[facility] [address] [place], [address] Urea nitrogen [Mass/Vol] 16 mg/dL Normal 4-19 [facility] Comment on above: Performed By: #### L 100.0500, L500.4050 ####[facility] [address] [place], [address] Consultation - Orthopedicson 02-06-2025 Consultation - Orthopedics Normal [facility] Emergency Department Summary on 02-06-2025 Emergency Department Summary Normal [facility] Erythrocyte distribution wid th ratioOrdered By: Kana Whitt on 02-06-2025 Erythrocyte distribution width (RBC) [Ratio] 13.3 % 11.6-14.6 [facility] Erythrocyte distribution wid th standard deviationOrdered By: Kana Whitt on 02-06-2025 Erythrocyte distribution width (RBC) [Ratio] 43.9 fl 35.1-43.9 [facility] Glomerular filtration rate ( GFR) estimation/1.73 sq m using serum, plasma, or whole bOrdered By: Kana Whitt on 02-06-2025 GFR/1.73 sq M.predicted among non-blacks MDRD (S/P/Bld) [Vol rate/Area] 66 mL/min/{1.73_m2} >60 [facility] Comment on above: mL/min/1.73m2 CKD-EP I Creatinine Equation (2020) H AND P Exam - Hospitaliston 02-06-2025 H&P Exam - Hospitalist Normal [facility] Hematocrit Auto (Bld) [Volum e fraction]Ordered By: Kana Whitt on 02-06-2025 Hematocrit (Bld) [Volume fraction] 29.5 % Low 37-47 [facility] Hemoglobin measurementOrdere d By: Kana Whitt on 02-06-2025 Hemoglobin (Bld) [Mass/Vol] 9.2 g/dL Low 12.0-15.0 [facility] Humerus min 2 Viewson 2024 Humerus min 2 Views Normal [facility] Laboratory - Chemistry and C hemistry - challengeOrdered By: Kana Whitt on 02-06-2025 AST [Catalytic activity/Vol] 24 U/L <32 [facility] MCV (mean corpuscular volume ) determinationOrdered By: Kana Whitt on 02-06-2025 MCV (RBC) [Entitic vol] 91.3 fL 81-99 [facility] Mean corpuscular hemoglobin (MCH) determinationOrdered By: Kana Whitt on 02-06-2025 MCH (RBC) [Entitic mass] 28.5 pg 27.0-32.0 [facility] Mean corpuscular hemoglobin concentration (MCHC) determinationOrdered By: Kana Whitt on 02-06-2025 MCHC (RBC) [Mass/Vol] 31.2 g/dL Low 32-36 [facility] Mean platelet volume determi nationOrdered By: Kana Whitt on 02-06-2025 Platelet mean volume (Bld) [Entitic vol] 10.4 fL 6.2-12.0 [facility] No Panel InformationOrdered By: Kana Whitt on 02-06-2025 24 U/L <32 [facility] Platelet countOrdered By: Rafael Whitt on 02-06-2025 Platelets (Bld) [#/Vol] 143 10*3/uL Low 150-450 [facility] Potassium measurement (mass/ volume)Ordered By: Kana Whitt on 02-06-2025 Potassium (Unsp spec) [Mass/Vol] 4.0 mmol/L 3.3-5.1 [facility] RBC Auto (Bld) [#/Vol]Ordere d By: aKna Whitt on 02-06-2025 RBC (Bld) [#/Vol] 3.23 10*6/uL Low 4.2-5.4 [facility] Serum creatinine measurement (mass/volume)Ordered By: Kana Whitt on 02-06-2025 Creatinine [Mass/Vol] 0.88 mg/dL 0.70-1.20 [facility] Serum globulin measurementOr dered By: Kana Whitt on 02-06-2025 Globulin (S) [Mass/Vol] 2.8 g/dL 2.2-4.2 [facility] Serum glucose measurement (m ass/volume)Ordered By: Kana Whitt on 02-06-2025 Glucose [Mass/Vol] 107 mg/dL High 70-99 [facility] Serum or plasma alanine ruano otransferase (ALT) measurementOrdered By: Kana Whitt on 02-06-2025 ALT [Catalytic activity/Vol] 14 U/L <35 [facility] Serum or plasma albumin osiris urement (mass/volume)Ordered By: Kana Whitt on 02-06-2025 Albumin [Mass/Vol] 3.3 g/dL Low 3.4-4.8 [facility] Serum or plasma albumin/glob ulin mass ratioOrdered By: Kana Whitt on 02-06-2025 Albumin/Globulin [Mass ratio] 1.2 {ratio} 0.9-2.4 [facility] Serum or plasma alkaline antelmo sphatase measurementOrdered By: Kana Whitt on 02-06-2025 ALP [Catalytic activity/Vol] 98 U/L 35-104 [facility] Serum or plasma calcium osiris urement (mass/volume)Ordered By: Kana Whitt on 02-06-2025 Calcium [Mass/Vol] 8.7 mg/dL 7.6-11.0 [facility] Serum or plasma urea nitroge n measurement (mass/volume)Ordered By: Kana Whitt on 02-06-2025 Urea nitrogen [Mass/Vol] 16 mg/dL 4-19 [facility] Sodium levelOrdered By: Jolie Whitt on 02-06-2025 Sodium [Moles/Vol] 137 mmol/L 133-145 [facility] Total proteinOrdered By: Matthew Whitt on 02-06-2025 Protein [Mass/Vol] 6.2 g/dL 5.9-8.4 [facility] Vitamin D,25 Hydroxyon 02-06 Vitamin D 25-OH 24.5 ng/mL Low 30-100 [facility] Comment on above: Result Comment: Brook min D StatusDeficiency: <20 ng/mL (50nmol/L)Insufficiency: 20-30 ng/mL (50-75 nmol/L)Sufficiency: 30-100 ng/mL (75-250 nmol/L)Toxicity: >100 ng/mL (>250 nmol/L) Performed By: #### L 506.1001 ####[facility] [address] [place], [address] White blood cell (WBC) count Ordered By: Kana Whitt on 02-06-2025 WBC (Bld) [#/Vol] 4.8 10*3/uL 4.4-11.0 [facility] Emergency Department Summary on 02-03-2025 Emergency Department Summary Normal [facility] Extremity Upper without Cont raon 02-03-2025 Extremity Upper without Contra Normal [facility] Shoulder min 2 Viewson 02-03 Shoulder min 2 Views Normal [facility] Inital Evaluation (1) - PTon 01-12-2025 Inital Evaluation (1) - PT Normal [facility] Inital Evaluation (1) - PT Normal [facility] CNOVon 12-23-[address] [facility] CNOVon 12-20-[address] [facility] CNOVon 12-19-[address] [facility] CNOVon 12-09-[address] [facility] CNOVon 12-03-[address] [facility] CNTHERAPYon 11-26-2024 CNTHERAPY OT/PT/Speech Visit ([facility]) ----- LAUREN ALCARAZ ([id number]) 1940 F Date Time Provider Department 11/26/24 4:[address] [facility] Date Time Provider Department Center 11/26/2024 4:15 PM [id number], DIANDRA [facility] Reason for Visit: OT [...] 1,000 mcg intramuscularly once every month. Vitamin I-18-fykakrnaalknam - ammonium lactate (LAC-HYDRIN) 12 % lotion [...] 6 months. Last injection November 2020 [facility] CNTHERAPYon 11-19-2024 CNTHERAPY [facility] LAUREN ALCARAZ ([id number]) 1940 F Date Time Provider Department 11/19/24 4:[address] [facility] Date Time Provider Department Center 11/19/2024 4:15 PM [id number], DIANDRA [facility] Reason for Visit: Occupational Therapy [504] [...] 1,000 mcg intramuscularly once every month. Vitamin M-06-jprgikqzehsowk - ammonium lactate (LAC-HYDRIN) 12 % lotion [...] 6 months. Last injection November 2020 Normal [facility] CASE MANAGEMon 11-17-[address]24 [address]NA[address] [facility] CASE MANAGEM Normal [facility] CNDSon 11-17-[address] [facility] ANES POSTPROC EVALon 025 ANES POSTPROC EVAL Normal [facility] ANES PRE-OPon 11-16-2024 ANES PRE-OP Normal [facility] CASE MGT INIT ASSESon 2024 CASE MGT INIT ASSES Normal [facility] CBC panel Auto (Bld)on 11-16 Erythrocyte distribution width (RBC) [Ratio] 13.7 % Normal 11.5-15.[address] [facility] Comment on above: Order Comment: Speci men Type: BLOOD SPECIMENOrdering Facility: [facility] Address: [address] [place] [address] Performed By: #### 5 8410-2 ####[facility] LABCLIA [id number] [place] [address] [place] Hematocrit (Bld) [Volume fraction] 36.3 % Normal 36.0-46.[address] [facility] Comment on above: Order Comment: Speci men Type: BLOOD SPECIMENOrdering Facility: [facility] Address: [address] [place] [address] Performed By: #### 5 8410-2 ####[facility] LABIA [id number] [place] [address] [place] Hemoglobin (Bld) [Mass/Vol] 11.6 g/dL Normal 11.5-15.[address] [facility] Comment on above: Order Comment: Speci men Type: BLOOD SPECIMENOrdering Facility: [facility] Address: [address] [place] [address] Performed By: #### 5 8410-2 ####[facility] LABIA [id number] [place] [address] [place] MCH (RBC) [Entitic mass] 29.5 pg Normal 26.0-34.[address] [facility] Comment on above: Order Comment: Speci men Type: BLOOD SPECIMENOrdering Facility: [facility] Address: [address] [place] [address] Performed By: #### 5 8410-2 ####[facility] LABCLIA [id number] [place] [address] [place] MCHC (RBC) [Mass/Vol] 32.0 g/dL Normal 30.5-36.0 [facility] Comment on above: Order Comment: Speci men Type: BLOOD SPECIMENOrdering Facility: [facility] Address: [address] [place] [address] Performed By: #### 5 8410-2 ####[facility] LABCLIA [id number] [place] [address] [place] MCV (RBC) [Entitic vol] 92.4 fL Normal 80.0-100.[address] [facility] Comment on above: Order Comment: Speci men Type: BLOOD SPECIMENOrdering Facility: [facility] Address: [address] [place] [address] Performed By: #### 5 8410-2 ####[facility] LABIA [id number] [place] [address] [place] Nucleated RBC (Bld) [#/Vol] 10*3/uL Normal <0.[address] [facility] Comment on above: Order Comment: Speci men Type: BLOOD SPECIMENOrdering Facility: [facility] Address: [address] [place] [address] Performed By: #### 5 8410-2 ####[facility] LABIA [id number] [place] [address] [place] Platelet mean volume (Bld) [Entitic vol] 10.9 fL Normal 9.0-12.[address] [facility] Comment on above: Order Comment: Speci men Type: BLOOD SPECIMENOrdering Facility: [facility] Address: [address] [place] [address] Performed By: #### 5 8410-2 ####[facility] LABIA [id number] [place] [address] [place] Platelets (Bld) [#/Vol] 171 10*3/uL Normal 150-[address] [facility] Comment on above: Order Comment: Speci men Type: BLOOD SPECIMENOrdering Facility: [facility] Address: [address] [place] [address] Performed By: #### 5 8410-2 ####[facility] LABCLIA [id number] [place] [id number] [place] RBC (Bld) [#/Vol] 3.93 10*6/uL Normal 3.90-5.20 [facility] Comment on above: Order Comment: Speci men Type: BLOOD SPECIMENOrdering Facility: [facility] Address: [address] [place] [address] Performed By: #### 5 8410-2 ####[facility] LABCLIA [id number] [address] [place] [address] [place] WBC (Bld) [#/Vol] 4.86 10*3/uL Normal 3.70-11.00 [facility] Comment on above: Order Comment: Speci men Type: BLOOD SPECIMENOrdering Facility: [facility] Address: [address] [place] [address] Performed By: #### 5 8410-2 ####[facility] LABCLIA [id number] [address] [place] [address] [place] Comprehensive metabolic 2000 panelon 11-16-2024 Albumin [Mass/Vol] 3.4 g/dL Low 3.9-4.9 [facility] Comment on above: Order Comment: Speci men Type: BLOOD SPECIMENOrdering Facility: [facility] Address: [address] [place] [address] Performed By: #### 2 4323-8, 27702-15, ####[facility] LABCLIA [id number] [address] [place] [address] [place] ALP [Catalytic activity/Vol] 148 U/L High 34-[address] [facility] Comment on above: Order Comment: Speci men Type: BLOOD SPECIMENOrdering Facility: [facility] Address: [address] [place] [address] Performed By: #### 2 4323-8, 2777, ####[facility] LABCLIA [id number] [facility] [address] [place] [address] [place] ALT [Catalytic activity/Vol] 27 U/L Normal 7-[address] [facility] Comment on above: Order Comment: Speci men Type: BLOOD SPECIMENOrdering Facility: [facility] Address: [address] [place], [place] [address] Performed By: #### 2 4323-8, 27702-15, ####[facility] LABCLIA [id number] [address] [address] [place] Anion gap [Moles/Vol] 10 mmol/L Normal 8-15 [facility] Comment on above: Order Comment: Speci men Type: BLOOD SPECIMENOrdering Facility: [facility] Address: [address] [place], [place] [address] Performed By: #### 2 4323-8, 27702-15, ####[facility] LABIA [id number] [place] [id number] [place] AST [Catalytic activity/Vol] 25 U/L Normal 13-[address] [facility] Comment on above: Order Comment: Speci men Type: BLOOD SPECIMENOrdering Facility: [facility] Address: [address] [place], [place] [address] Performed By: #### 2 4323-8, 27702-15, ####[facility] LABIA [id number] [place] [address] [place] Bilirubin [Mass/Vol] 0.4 mg/dL Normal 0.2-1.3 [facility] Comment on above: Order Comment: Speci men Type: BLOOD SPECIMENOrdering Facility: [facility] Address: [address] [place] [address] Performed By: #### 2 4323-8, 27702-15, ####[facility] LABIA [id number] [address] [address] [place] Calcium [Mass/Vol] 8.0 mg/dL Low 8.5-10.2 [facility] Comment on above: Order Comment: Speci men Type: BLOOD SPECIMENOrdering Facility: [facility] Address: [address] [place] [address] Performed By: #### 2 4323-8, 27702-15, ####[facility] LABCLIA [id number] [address] [address] [place] Chloride [Moles/Vol] 105 mmol/L Normal 98-107 [facility] Comment on above: Order Comment: Speci men Type: BLOOD SPECIMENOrdering Facility: [facility] Address: [address] [place], [place] [address] Performed By: #### 2 4323-8, 27702-15, ####[facility] LABIA [id number] [place] [address] [place] CO2 [Moles/Vol] 21 mmol/L Low 22-[address] [facility] Comment on above: Order Comment: Speci men Type: BLOOD SPECIMENOrdering Facility: [facility] Address: [address] [place], [place] [address] Performed By: #### 2 4323-8, 27702-15, ####[facility] LABIA [id number] [place] [address] [place] Creatinine [Mass/Vol] 0.75 mg/dL Normal 0.58-0.96 [facility] Comment on above: Order Comment: Speci men Type: BLOOD SPECIMENOrdering Facility: [facility] Address: [address] [place], [place] [address] Performed By: #### 2 4323-8, 27702-15, ####[facility] LABIA [id number] [address] [address] [place] Creatinine and Glomerular filtration rate.predicted panel (S/P/Bld) 80 mL/min/1.73m??? Normal >=[address] [facility] Comment on above: Order Comment: Speci men Type: BLOOD SPECIMENOrdering Facility: [facility] Address: [address] [place], [place] [address] Result Comment: Brandy mated Glomerular Filtration Rate [...] actual GFR. Performed By: #### 2 4323-8, 2777, ####[facility] LABIA [id number] [address] [address] [place] Glucose [Mass/Vol] 156 mg/dL High 74-99 [facility] Comment on above: Order Comment: Speci men Type: BLOOD SPECIMENOrdering Facility: [facility] Address: [address] [place] [address] Result Comment: The [place] Diabetes Association (ADA) provides guidance for cutoff [...] Medical Care in Diabetes 2016, [place] Diabetes Association. Diabetes Care. 2016.39(Suppl 1). Performed By: #### 2 4323-8, 27702-15, ####[facility] LABIA [id number] [address] [address] [place] Potassium [Moles/Vol] 4.8 mmol/L Normal 3.7-5.1 [facility] Comment on above: Order Comment: Corinei men Type: BLOOD SPECIMENOrdering Facility: [facility] Address: [address] [place] [address] Performed By: #### 2 4323-8, 27702-15, ####[facility] LABIA [id number] [address] [address] [place] Protein [Mass/Vol] 6.0 g/dL Low 6.3-8.0 [facility] Comment on above: Order Comment: Speci men Type: BLOOD SPECIMENOrdering Facility: [facility] Address: [address] [place], [place] [address] Performed By: #### 2 4323-8, 27702-15, ####[facility] LABIA [id number] [address] [address] [place] Sodium [Moles/Vol] 136 mmol/L Normal 136-144 [facility] Comment on above: Order Comment: Speci men Type: BLOOD SPECIMENOrdering Facility: [facility] Address: [address] [place] [address] Performed By: #### 2 4323-8, 27702-15, ####[facility] [id number] [address] [address] [place] Urea nitrogen [Mass/Vol] 13 mg/dL Normal 7-[address] [facility] Comment on above: Order Comment: Speci men Type: BLOOD SPECIMENOrdering Facility: [facility] Address: [address] [place], [place] [address] Performed By: #### 2 4323-8, 27702-15, ####[facility] LABIA [id number] [address] [address] [place] ERCPon 11-16-[address] [facility] Magnesium SerPl-mCncon 11-16 Magnesium [Mass/Vol] 1.8 mg/dL Normal 1.7-2.3 [facility] Comment on above: Order Comment: Speci men Type: BLOOD SPECIMENOrdering Facility: [facility] Address: [address] [place], [place] [address] Performed By: #### 2 4323-8, 2777-, 97204-5 ####[facility] LABIA [id number] [place] [address] [place] NURSING PROGon 11-16-[address] [facility] NURSING PROG Normal [facility] NUTRITIONon 11-16-[address] [facility] PT panel Coag (PPP)on 2024 INR Coag (PPP) [Relative time] 1.2 {INR} Normal 0.9-1.[address] [facility] Comment on above: Order Comment: Speci men Type: BLOOD SPECIMENOrdering Facility: [facility] Address: [address] [place] [address] Result Comment: Brook min K Antagonist (VKA) Therapeutic Range: INR 2 to 3 (Target INR of 2.5)Note: For patients treated with VKA drugs, such as warfarin, the [place] [employer] Chest Physicians 2012 Guideline recommends [...] Chest 2012, 141:7S-47SNishimura RA, et al. [facility] 2017, 70: 252-289 Performed By: #### 3 4528-0, 17105-0 ####[facility] LABIA [id number] [place] [address] [place] PT Coag (PPP) [Time] 13.3 s High 9.7-13.0 [facility] Comment on above: Order Comment: Speci men Type: BLOOD SPECIMENOrdering Facility: [facility] Address: [address] [place] [address] Performed By: #### 3 4528-0, 71835-3 ####[facility] LABIA [id number] [place] [address] [place] Phosphate SerPl-mCncon 11-16 Phosphate [Mass/Vol] 2.5 mg/dL Low 2.7-4.8 [facility] Comment on above: Order Comment: Speci men Type: BLOOD SPECIMENOrdering Facility: [facility] Address: [address] [place] [address] Performed By: #### 2 4323-8, 2777-1, 72877-6 ####[facility] LABIA [id number] [address] [place] aPTT PPPon 11-16-2024 aPTT Coag (PPP) [Time] 34.8 s High 23.0-32.[address] [facility] Comment on above: Order Comment: Speci men Type: BLOOD SPECIMENOrdering Facility: [facility] Address: [address] [place] [address] Performed By: #### 3 4528-0, 37121-5 ####[facility] [id number] [address] [place] CBC panel Auto (Bld)on 11-15 Erythrocyte distribution width (RBC) [Ratio] 13.8 % Normal 11.5-15.[address] [facility] Comment on above: Order Comment: Speci men Type: BLOOD SPECIMENOrdering Facility: [facility] Address: [address] [place] [address] Performed By: #### 5 8410-2 ####[facility] LABIA [id number] [address] [place] Hematocrit (Bld) [Volume fraction] 35.0 % Low 36.0-46.[address] [facility] Comment on above: Order Comment: Speci men Type: BLOOD SPECIMENOrdering Facility: [facility] Address: [address] [place] [address] Performed By: #### 5 8410-2 ####[facility] LABCLIA [id number] [place] [address] [place] Hemoglobin (Bld) [Mass/Vol] 10.7 g/dL Low 11.5-15.[address] [facility] Comment on above: Order Comment: Speci men Type: BLOOD SPECIMENOrdering Facility: [facility] Address: [address] [place] [address] Performed By: #### 5 8410-2 ####[facility] LABIA [id number] [place] [address] [place] MCH (RBC) [Entitic mass] 28.6 pg Normal 26.0-34.[address] [facility] Comment on above: Order Comment: Speci men Type: BLOOD SPECIMENOrdering Facility: [facility] Address: [address] [place] [address] Performed By: #### 5 8410-2 ####[facility] LABIA [id number] [place] [address] [place] MCHC (RBC) [Mass/Vol] 30.6 g/dL Normal 30.5-36.0 [facility] Comment on above: Order Comment: Speci men Type: BLOOD SPECIMENOrdering Facility: [facility] Address: [address] [place] [address] Performed By: #### 5 8410-2 ####[facility] LABIA [id number] [place] [address] [place] MCV (RBC) [Entitic vol] 93.6 fL Normal 80.0-100.[address] [facility] Comment on above: Order Comment: Speci men Type: BLOOD SPECIMENOrdering Facility: [facility] Address: [address] [place] [address] Performed By: #### 5 8410-2 ####[facility] LABCLIA [id number] [address] [address] [place] Nucleated RBC (Bld) [#/Vol] 10*3/uL Normal <0.[address] [facility] Comment on above: Order Comment: Speci men Type: BLOOD SPECIMENOrdering Facility: [facility] Address: [address] [place] [address] Performed By: #### 5 8410-2 ####[facility] LABCLIA [id number] [place] [address] [place] Platelet mean volume (Bld) [Entitic vol] 10.5 fL Normal 9.0-12.[address] [facility] Comment on above: Order Comment: Speci men Type: BLOOD SPECIMENOrdering Facility: [facility] Address: [address] [place] [address] Performed By: #### 5 8410-2 ####[facility] LABCLIA [id number] [place] [address] [place] Platelets (Bld) [#/Vol] 156 10*3/uL Normal 150-[address] [facility] Comment on above: Order Comment: Speci men Type: BLOOD SPECIMENOrdering Facility: [facility] Address: [address] [place] [address] Performed By: #### 5 8410-2 ####[facility] LABIA [id number] [place] [address] [place] RBC (Bld) [#/Vol] 3.74 10*6/uL Low 3.90-5.20 [facility] Comment on above: Order Comment: Speci men Type: BLOOD SPECIMENOrdering Facility: [facility] Address: [address] [place] [address] Performed By: #### 5 8410-2 ####[facility] LABCLIA [id number] [place] [address] [place] WBC (Bld) [#/Vol] 4.56 10*3/uL Normal 3.70-11.00 [facility] Comment on above: Order Comment: Speci men Type: BLOOD SPECIMENOrdering Facility: [facility] Address: [address] [place] [address] Performed By: #### 5 8410-2 ####[facility] LABCLIA [id number] [address] [address] [place] CNPNon 11-15-[address] [facility] Comprehensive metabolic 2000 panelon 11-15-2024 Albumin [Mass/Vol] 3.8 g/dL Low 3.9-4.9 [facility] Comment on above: Order Comment: Speci men Type: BLOOD SPECIMENOrdering Facility: [facility] Address: [address] [place] [address] Performed By: #### 2 4323-8 ####[facility] LABCLIA [id number] [place] [address] [place] ALP [Catalytic activity/Vol] 161 U/L High 34-[address] [facility] Comment on above: Order Comment: Speci men Type: BLOOD SPECIMENOrdering Facility: [facility] Address: [address] [place] [address] Performed By: #### 2 4323-8 ####[facility] LABCLIA [id number] [place] [address] [place] ALT [Catalytic activity/Vol] 33 U/L Normal 7-[address] [facility] Comment on above: Order Comment: Speci men Type: BLOOD SPECIMENOrdering Facility: [facility] Address: [address] [place] [address] Performed By: #### 2 4323-8 ####[facility] LABCLIA [id number] [place] [address] [place] Anion gap [Moles/Vol] 10 mmol/L Normal 8-15 [facility] Comment on above: Order Comment: Speci men Type: BLOOD SPECIMENOrdering Facility: [facility] Address: [address] [place] [address] Performed By: #### 2 4323-8 ####[facility] LABCLIA [id number] [address] [address] [place] AST [Catalytic activity/Vol] 29 U/L Normal 13-[address] [facility] Comment on above: Order Comment: Speci men Type: BLOOD SPECIMENOrdering Facility: [facility] Address: [address] [place] [address] Performed By: #### 2 4323-8 ####[facility] LABCLIA [id number] [place] [address] [place] Bilirubin [Mass/Vol] 0.3 mg/dL Normal 0.2-1.3 [facility] Comment on above: Order Comment: Speci men Type: BLOOD SPECIMENOrdering Facility: [facility] Address: [address] [place] [address] Performed By: #### 2 4323-8 ####[facility] LABCLIA [id number] [address] [address] [place] Calcium [Mass/Vol] 8.4 mg/dL Low 8.5-10.2 [facility] Comment on above: Order Comment: Speci men Type: BLOOD SPECIMENOrdering Facility: [facility] Address: [address] [place] [address] Performed By: #### 2 4323-8 ####[facility] LABCLIA [id number] [address] [place] [address] [place] Chloride [Moles/Vol] 106 mmol/L Normal 98-107 [facility] Comment on above: Order Comment: Speci men Type: BLOOD SPECIMENOrdering Facility: [facility] Address: [address] [place], [place] [address] Performed By: #### 2 4323-8 ####[facility] LABCLIA [id number] [address] [address] [place] CO2 [Moles/Vol] 22 mmol/L Normal 22-[address] [facility] Comment on above: Order Comment: Speci men Type: BLOOD SPECIMENOrdering Facility: [facility] Address: [address] [place] [address] Performed By: #### 2 4323-8 ####[facility] LABCLIA [id number] [place] [address] [place] Creatinine [Mass/Vol] 0.77 mg/dL Normal 0.58-0.96 [facility] Comment on above: Order Comment: Speci men Type: BLOOD SPECIMENOrdering Facility: [facility] Address: [address] [place] [address] Performed By: #### 2 4323-8 ####[facility] LABIA [id number] [address] STATES OF [facility] Creatinine and Glomerular filtration rate.predicted panel (S/P/Bld) 77 mL/min/1.73m??? Normal >=[address] [facility] Comment on above: Order Comment: Speci men Type: BLOOD SPECIMENOrdering Facility: [facility] Address: [address] [place] [address] Result Comment: Brandy mated Glomerular Filtration Rate [...] actual GFR. Performed By: #### 2 4323-8 ####[facility] LABCLIA [id number] [place] [address] [place] Glucose [Mass/Vol] 120 mg/dL High 74-99 [facility] Comment on above: Order Comment: Speci men Type: BLOOD SPECIMENOrdering Facility: [facility] Address: [address] [place] [address] Result Comment: The [place] Diabetes Association (ADA) provides guidance for cutoff [...] Medical Care in Diabetes 2016, [place] Diabetes Association. Diabetes Care. 2016.39(Suppl 1). Performed By: #### 2 4323-8 ####[facility] LABCLIA [id number] [place] [address] [place] Potassium [Moles/Vol] 4.2 mmol/L Normal 3.7-5.1 [facility] Comment on above: Order Comment: Speci men Type: BLOOD SPECIMENOrdering Facility: [facility] Address: [address] [place] [address] Performed By: #### 2 4323-8 ####[facility] LABCLIA [id number] [place] [address] [place] Protein [Mass/Vol] 6.4 g/dL Normal 6.3-8.0 [facility] Comment on above: Order Comment: Speci men Type: BLOOD SPECIMENOrdering Facility: [facility] Address: [address] [place] [address] Performed By: #### 2 4323-8 ####[facility] LABCLIA [id number] [place] [address] [place] Sodium [Moles/Vol] 138 mmol/L Normal 136-144 [facility] Comment on above: Order Comment: Speci men Type: BLOOD SPECIMENOrdering Facility: [facility] Address: [address] [place] [address] Performed By: #### 2 4323-8 ####[facility] LABCLIA [id number] [place] [address] [place] Urea nitrogen [Mass/Vol] 16 mg/dL Normal 7-[address] [facility] Comment on above: Order Comment: Ramirez franco Type: BLOOD SPECIMENOrdering Facility: [facility] Address: [address] [place] [address] Performed By: #### 2 4323-8 ####[facility] [id number] [place] [address] [place] HISTORY PHYSICALon HISTORY PHYSICAL Normal [facility] NURSING PROGon 11-15-[address] [facility] PT panel Coag (PPP)on 2024 INR Coag (PPP) [Relative time] 1.2 {INR} Normal 0.9-1.[address] [facility] Comment on above: Order Comment: Ramirez gamez Type: BLOOD SPECIMENOrdering Facility: [facility] Address: [address] [place] [address] Result Comment: Brook min K Antagonist (VKA) Therapeutic Range: INR 2 to 3 (Target INR of 2.5)Note: For patients treated with VKA drugs, such as warfarin, the Citizen Of [place] College of Chest Physicians 2012 Guideline recommends [...] al. Chest 2012, 141:7S-47SYakov RA, et al. [facility] 2017, 70: 252-289 Performed By: #### 3 4528-0, 85975-7 ####[facility] LABCLIA [id number] [place] [address] [place] PT Coag (PPP) [Time] 12.8 s Normal 9.7-13.0 [facility] Comment on above: Order Comment: Speci men Type: BLOOD SPECIMENOrdering Facility: [facility] Address: [address] [place] [address] Performed By: #### 3 4528-0, 13203-1 ####[facility] LABCLIA [id number] [place] [address] [place] TYPE + SCREENon 11-15-2024 ABO A Normal [facility] Comment on above: Order Comment: Speci men Type: BLOOD SPECIMENOrdering Facility: [facility] Address: [address] [place] [address] Performed By: #### T SCR ####[facility] BLOOD BANKCLIA [id number] [place] [address] [place] Rh Nom (Bld) Positive Normal [facility] Comment on above: Order Comment: Speci men Type: BLOOD SPECIMENOrdering Facility: [facility] Address: [address] [place] [address] Performed By: #### T SCR ####[facility] BLOOD BANKCLIA [id number] [place] [address] [place] TYPE AND SCREEN EXPIRATION 11/18/2024 23:[address] [facility] Comment on above: Order Comment: Speci men Type: BLOOD SPECIMENOrdering Facility: [facility] Address: [address] [place] [address] Performed By: #### T SCR ####[facility] BLOOD BANKIA [id number] [place] [address] [place] aPTT PPPon 11-15-2024 aPTT Coag (PPP) [Time] 29.8 s Normal 23.0-32.[address] [facility] Comment on above: Order Comment: Speci men Type: BLOOD SPECIMENOrdering Facility: [facility] Address: [address] [place], [place] [address] [place] [address] Performed By: #### 3 4528-0, 18619-7 ####[facility] LABCLNILAM [id number] [place] [address] [place] CNPNon 11-12-[address] [facility] CNTHERAPYon 11-12-2024 CNTHERAPY OT/PT/Speech Visit ([facility]) ----- LAUREN ALCARAZ ([id number]) 1940 F Date Time Provider Department 11/12/24 3:[address] [facility] Date Time Provider Department Center 11/12/2024 3:30 PM [id number], DIANDRA [facility] Reason for Visit: Occupational Therapy [...] 1,000 mcg intramuscularly once every month. Vitamin T-02-liellgmmwilgwb - ammonium lactate (LAC-HYDRIN) 12 % lotion [...] 6 months. Last injection November 2020 Normal [facility] CT ABD/PEL W IVCONon 025 CT ABD/PEL W IVCON Invalid Interpretation Code [facility] Chest PA and Lateralon 11-09 Chest PA and Lateral Normal [facility] CBC panel Auto (Bld)on 11-08 Erythrocyte distribution width (RBC) [Ratio] 14.0 % Normal 11.5-15.[address] [facility] Comment on above: Order Comment: Speci men Type: BLOOD SPECIMENOrdering Facility: [facility] Address: [address] [place] [address] Performed By: #### 5 8410-2 ####[facility] [id number] [place] [address] [place] Hematocrit (Bld) [Volume fraction] 33.8 % Low 36.0-46.[address] [facility] Comment on above: Order Comment: Speci men Type: BLOOD SPECIMENOrdering Facility: [facility] Address: [address] [place] [address] Performed By: #### 5 8410-2 ####[facility] [id number] [place] [address] [place] Hemoglobin (Bld) [Mass/Vol] 10.7 g/dL Low 11.5-15.[address] [facility] Comment on above: Order Comment: Speci men Type: BLOOD SPECIMENOrdering Facility: [facility] Address: [address] [place] [address] Performed By: #### 5 8410-2 ####[facility] [id number] [place] [address] [place] MCH (RBC) [Entitic mass] 29.6 pg Normal 26.0-34.[address] [facility] Comment on above: Order Comment: Speci men Type: BLOOD SPECIMENOrdering Facility: [facility] Address: [address] [place] [address] Performed By: #### 5 8410-2 ####[facility]CLIA [id number] [place] [address] [place] MCHC (RBC) [Mass/Vol] 31.7 g/dL Normal 30.5-36.0 [facility] Comment on above: Order Comment: Speci men Type: BLOOD SPECIMENOrdering Facility: [facility] Address: [address] [place] [address] Performed By: #### 5 8410-2 ####[facility] [id number] [place] [address] [place] MCV (RBC) [Entitic vol] 93.6 fL Normal 80.0-100.[address] [facility] Comment on above: Order Comment: Speci men Type: BLOOD SPECIMENOrdering Facility: [facility] Address: [address] [place] [address] Performed By: #### 5 8410-2 ####[facility] HERMINIOWNCLIA [id number] [place] [address] [place] Nucleated RBC (Bld) [#/Vol] 10*3/uL Normal <0.[address] [facility] Comment on above: Order Comment: Speci men Type: BLOOD SPECIMENOrdering Facility: [facility] Address: [address] [place] [address] Performed By: #### 5 8410-2 ####[facility]CL[facility] [id number] [place] [address] [place] Platelet mean volume (Bld) [Entitic vol] 10.2 fL Normal 9.0-12.[address] [facility] Comment on above: Order Comment: Speci men Type: BLOOD SPECIMENOrdering Facility: [facility] Address: [address] [place] [address] Performed By: #### 5 8410-2 ####[facility] [id number] [place] [address] [place] Platelets (Bld) [#/Vol] 188 10*3/uL Normal 150-[address] [facility] Comment on above: Order Comment: Speci men Type: BLOOD SPECIMENOrdering Facility: [facility] Address: [address] [place] [address] Performed By: #### 5 8410-2 ####[facility] [id number] [place] [address] [place] RBC (Bld) [#/Vol] 3.61 10*6/uL Low 3.90-5.20 [facility] Comment on above: Order Comment: Speci men Type: BLOOD SPECIMENOrdering Facility: [facility] Address: [address] [place] [address] Performed By: #### 5 8410-2 ####[facility] HERMINIOGREAT BENDNCLIA [id number] [place] [address] [place] WBC (Bld) [#/Vol] 4.89 10*3/uL Normal 3.70-11.00 [facility] Comment on above: Order Comment: Speci men Type: BLOOD SPECIMENOrdering Facility: [facility] Address: [address] [place] [address] Performed By: #### 5 8410-2 ####[facility] [id number] [place] [address] [place] CREATININE BLDon 11-08-2024 Creatinine [Mass/Vol] 0.79 mg/dL Normal 0.58-0.96 [facility] Comment on above: Order Comment: Speci men Type: BLOOD SPECIMENOrdering Facility: [facility] Address: [address] [place] [address] Performed By: #### C RET1 ####[facility] [id number] [address] [place] Creatinine and Glomerular filtration rate.predicted panel (S/P/Bld) 75 mL/min/1.73m??? Normal >=[address] [facility] Comment on above: Order Comment: Speci men Type: BLOOD SPECIMENOrdering Facility: [facility] Address: [address] [place] [address] Result Comment: Brandy mated Glomerular Filtration Rate [...] actual GFR. Performed By: #### C RET1 ####[facility] HOSPITALWNCLIA [id number] [place] [address] [place] [facility] CNTHERAPYon 11-05-2024 CNTHERAPY OT/PT[facility] ----- LAUREN ALCARAZ ([id number]) 1940 F Date Time Provider Department 11/05/24 2:[address] [facility] Date Time Provider Department Center 11/05/2024 2:00 PM [id number], DIANDRA [facility] Reason for Visit: Occupational [...] 1,000 mcg intramuscularly once every month. Vitamin R-65-tiyaezqjxakwuq - ammonium lactate (LAC-HYDRIN) 12 % lotion [...] Street OTR/L on 11/05/2024 2:13 PM Normal [facility] CNOVon 11-03-[address] [facility] VISUAL FIELD 24-2 OU (BOTH E YES)on 11-01-2024 [facility] Radiology Study observation (narrative) [facility] [id number] 10-29-2024 [id number] HNO ID: [id number] Author: [address] OTR/L Service: ? Author Type: Occupational Therapist Type: [id number] Filed: 10/29/2024 12:32 Note Text: [facility] Occupational Therapy Plan of Care Certification Patient Name: Lauren Alcaraz : 1940 [facility] #: [id number] Date: 10/29/2024 To: Laisha Lizarraga, APR* From [...] 10/29/24 Patient will complete HEP at Modified [place] level. Patient will increase bilateral rental management trainee and pinches by 5# to improve function [...] Planned: 8 Planned Treatment Interventions: Therapeutic exercise (14283), Neuromuscular re-education (80754), Self-alf management (28011), Patient/Family/Caregiver Education PLAN FOR NEXT VISIT:assess different writing utensils, proximal stability? button hook, gentle rental management trainee strengthening Patient demonstrates good understanding of plan of care and treatment. The above goals and plan of care were discussed and agreed upon by patient/family. For further details regarding this patient refer to the Occupational Therapy electronically documented visit dated 10/29/2024. Provider Attestation I have reviewed the treatment plan for Lauren Alcaraz, [facility]# [id number] for the period of 10/29/24 -- 12/28/24, established on 10/29/2024. Signature certifies the need for therapy services. [facility] CNOVon 10-29-[address] [facility] CNPNon 10-29-2024 CNPN Telephone (GENLUMobilinga) ----- LAUREN ALCARAZ ([id number]) 1940 F Date Time Provider Department 10/29/24 ANILA DE PAZ GENFREDRICK During your visit today, we recorded the following information about you: Sandie Messina 10/29/2024 2:26 PM Signed Incoming call from [facility] pharmacy states the compound that was sent [...] 1,000 mcg intramuscularly once every month. Vitamin N-62-mkvmfonltqtyoh - ammonium lactate (LAC-HYDRIN) 12 % lotion [...] of malignant neop (more content not included)... [facility] CNTHERAPYon 10-29-2024 CNTHERAPY OT/PT/Speech Visit (OTMMC) ----- LAUREN ALCARAZ ([id number]) 1940 F Date Time Provider Department 10/29/24 10:[address] [facility] Date Time Provider Department Center 10/29/2024 10:45 AM [id number], DIANDRA [facility] Reason for Visit: OT EVAL [...] 1,000 mcg intramuscularly once every month. Vitamin U-30-rjlbhzdjlrpttc - ammonium lactate (LAC-HYDRIN) 12 % lotion [...] 6 months. Last injection November 2020 Normal [facility] Pulmonary Visit Reporton Pulmonary Visit Report Normal [facility] Breast imaging reportOrdered By: Sam Mac on 10-18-2024 Study report [facility] Imaging Services [address] [place] [address] SCRN MAMM (CAD)W/EVERETT BILAT MR#: [id number] Acct: [id number] Name: LAUREN ALCARAZ Rep #: [id number] : 1940 F 84 From: Cody Mac MD PCP: Dr. Chema Perry MD Status: REG I Study:SCRN MAMM (CAD)W/EVREETT BILAT Date of Exa m: 10/18/24 Exam# [id number] Ordering Dr: Chema Perry MD PROCEDURE: SCRN [...] of the results by letter. [place] Location: [id number] CC: Dr. Chema Perry MD ~ Page Makeup System Operator: Signed [facility] SCRN MAMM (CAD)W/EVERETT BILATo n 10-18-2024 SCRN MAMM (CAD)W/EVERETT BILAT Normal [facility] MR/BMS.IMBon 10-14-2024 MR/BMS.IMB Normal [facility] CNOVon 10-13-[address] [facility] CNOVon 10-08-[address] [facility] CASE MANAGEMon 09-23-[address]NA[address] [facility] CASE MANAGEM Normal [facility] CASE MANAGEM Normal [facility] CBC panel Auto (Bld)on 09-23 Erythrocyte distribution width (RBC) [Ratio] 13.6 % Normal 11.5-15.[address] [facility] Comment on above: Order Comment: Speci men Type: BLOOD SPECIMENOrdering Facility: [facility] Address: [address] [place] [address] Performed By: #### 5 8410-2 ####[facility] [id number] [place] [address] [place] Hematocrit (Bld) [Volume fraction] 33.2 % Low 36.0-46.[address] [facility] Comment on above: Order Comment: Speci men Type: BLOOD SPECIMENOrdering Facility: [facility] Address: [address] [place] [address] Performed By: #### 5 8410-2 ####[facility] [id number] [place] [address] [place] Hemoglobin (Bld) [Mass/Vol] 10.7 g/dL Low 11.5-15.[address] [facility] Comment on above: Order Comment: Speci men Type: BLOOD SPECIMENOrdering Facility: [facility] Address: [address] [place] [address] Performed By: #### 5 8410-2 ####[facility] LABIA [id number] [place] [address] [place] MCH (RBC) [Entitic mass] 29.2 pg Normal 26.0-34.[address] [facility] Comment on above: Order Comment: Speci men Type: BLOOD SPECIMENOrdering Facility: [facility] Address: [address] [place] [address] Performed By: #### 5 8410-2 ####[facility] LABIA [id number] [place] [address] [place] MCHC (RBC) [Mass/Vol] 32.2 g/dL Normal 30.5-36.0 [facility] Comment on above: Order Comment: Speci men Type: BLOOD SPECIMENOrdering Facility: [facility] Address: [address] [place] [address] Performed By: #### 5 8410-2 ####[facility] LABIA [id number] [place] [address] [place] MCV (RBC) [Entitic vol] 90.5 fL Normal 80.0-100.[address] [facility] Comment on above: Order Comment: Speci men Type: BLOOD SPECIMENOrdering Facility: [facility] Address: [address] [place] [address] Performed By: #### 5 8410-2 ####[facility] LABIA [id number] [place] [address] [place] Nucleated RBC (Bld) [#/Vol] 10*3/uL Normal <0.[address] [facility] Comment on above: Order Comment: Speci men Type: BLOOD SPECIMENOrdering Facility: [facility] Address: [address] [place] [address] Performed By: #### 5 8410-2 ####[facility] LABIA [id number] [place] [address] [place] Platelet mean volume (Bld) [Entitic vol] 10.8 fL Normal 9.0-12.[address] [facility] Comment on above: Order Comment: Speci men Type: BLOOD SPECIMENOrdering Facility: [facility] Address: [address] [place] [address] Performed By: #### 5 8410-2 ####[facility] LABIA [id number] [place] [address] [place] Platelets (Bld) [#/Vol] 150 10*3/uL Normal 150-[address] [facility] Comment on above: Order Comment: Speci men Type: BLOOD SPECIMENOrdering Facility: [facility] Address: [address] [place] [address] Performed By: #### 5 8410-2 ####[facility] LABIA [id number] [place] [address] [place] RBC (Bld) [#/Vol] 3.67 10*6/uL Low 3.90-5.20 [facility] Comment on above: Order Comment: Speci men Type: BLOOD SPECIMENOrdering Facility: [facility] Address: [address] [place] [address] Performed By: #### 5 8410-2 ####[facility] LABIA [id number] [place] [address] [place] WBC (Bld) [#/Vol] 5.57 10*3/uL Normal 3.70-11.00 [facility] Comment on above: Order Comment: Speci men Type: BLOOD SPECIMENOrdering Facility: [facility] Address: [address] [place] [address] Performed By: #### 5 8410-2 ####[facility] LABCLIA [id number] [place] [address] [place] CNDSon 09-23-[address] [facility] Comprehensive metabolic 2000 panelon 09-23-2024 Albumin [Mass/Vol] 3.3 g/dL Low 3.9-4.9 [facility] Comment on above: Order Comment: Speci men Type: BLOOD SPECIMENOrdering Facility: [facility] Address: [address] [place] [address] Performed By: #### 1 9123-9, 43870-6, 2777-1 ####[facility] LABCLIA [id number] [place] [address] [place] ALP [Catalytic activity/Vol] 71 U/L Normal 34-[address] [facility] Comment on above: Order Comment: Speci men Type: BLOOD SPECIMENOrdering Facility: [facility] Address: [address] [place] [address] Performed By: #### 1 9123-9, 12138-6, 2777-1 ####[facility] LABCLIA [id number] [place] [address] [place] ALT [Catalytic activity/Vol] 25 U/L Normal 7-[address] [facility] Comment on above: Order Comment: Speci men Type: BLOOD SPECIMENOrdering Facility: [facility] Address: [address] [place] [address] Performed By: #### 1 9123-9, 80783-2, 2777-1 ####[facility] LABCLIA [id number] [place] [address] [place] Anion gap [Moles/Vol] 8 mmol/L Normal 8-15 [facility] Comment on above: Order Comment: Speci men Type: BLOOD SPECIMENOrdering Facility: [facility] Address: [address] [place] [address] Performed By: #### 1 9123-9, 09308-4, 2777-1 ####[facility] LABCLIA [id number] [place] [id number] [place] AST [Catalytic activity/Vol] 30 U/L Normal 13-[address] [facility] Comment on above: Order Comment: Speci men Type: BLOOD SPECIMENOrdering Facility: [facility] Address: [address] [place] [address] Performed By: #### 1 9123-9, 17882-6, 2776-08 ####[facility] LABCLIA [id number] [place] [id number] [place] Bilirubin [Mass/Vol] 0.5 mg/dL Normal 0.2-1.3 [facility] Comment on above: Order Comment: Speci men Type: BLOOD SPECIMENOrdering Facility: [facility] Address: [address] [place] [address] Performed By: #### 1 9123-9, 36886-5, 2776-08 ####[facility] LABCLIA [id number] [place] [address] [place] Calcium [Mass/Vol] 8.1 mg/dL Low 8.5-10.2 [facility] Comment on above: Order Comment: Speci men Type: BLOOD SPECIMENOrdering Facility: [facility] Address: [address] [place] [address] Performed By: #### 1 9123-9, 69510-2, 2776-08 ####[facility] LABCLIA [id number] [place] [address] [place] Chloride [Moles/Vol] 102 mmol/L Normal 98-107 [facility] Comment on above: Order Comment: Speci men Type: BLOOD SPECIMENOrdering Facility: [facility] Address: [address] [place], [place] [address] Performed By: #### 1 9123-9, 72963-6, 2776-08 ####[facility] LABCLIA [id number] [place] [id number] [place] CO2 [Moles/Vol] 27 mmol/L Normal 22-[address] [facility] Comment on above: Order Comment: Speci men Type: BLOOD SPECIMENOrdering Facility: [facility] Address: [address] [place] [id number] Performed By: #### 1 9123-9, 66996-3, 2776-08 ####[facility] LABCLIA [id number] [address] [address] [place] Creatinine [Mass/Vol] 0.81 mg/dL Normal 0.58-0.96 [facility] Comment on above: Order Comment: Speci men Type: BLOOD SPECIMENOrdering Facility: [facility] Address: [address] [place] [address] Performed By: #### 1 9123-9, 05864-7, 2776-08 ####[facility] LABIA [id number] [place] [address] [place] Creatinine and Glomerular filtration rate.predicted panel (S/P/Bld) 73 mL/min/1.73m??? Normal >=[address] [facility] Comment on above: Order Comment: Corinei men Type: BLOOD SPECIMENOrdering Facility: [facility] Address: [address] [place] [address] Result Comment: Brandy mated Glomerular Filtration Rate [...] actual GFR. Performed By: #### 1 9123-9, 44505-4, 2776-08 ####[facility] LABIA [id number] [place] [id number] [place] Glucose [Mass/Vol] 93 mg/dL Normal 74-99 [facility] Comment on above: Order Comment: Speci men Type: BLOOD SPECIMENOrdering Facility: [facility] Address: [address] [place] [address] Result Comment: The Citizen [place] Diabetes Association (ADA) provides guidance for cutoff [...] Medical Care in Diabetes 2016, [place] Diabetes Association. Diabetes Care. 2016.39(Suppl 1). Performed By: #### 1 9123-9, 91087-0, 2777- ####[facility] LABIA [id number] [place] [address] [place] Potassium [Moles/Vol] 3.8 mmol/L Normal 3.7-5.1 [facility] Comment on above: Order Comment: Speci men Type: BLOOD SPECIMENOrdering Facility: [facility] Address: [address] [place] [address] Performed By: #### 1 9123-9, 06446-3, 2776-08 ####[facility] LABIA [id number] [place] [address] [place] Protein [Mass/Vol] 5.7 g/dL Low 6.3-8.0 [facility] Comment on above: Order Comment: Speci men Type: BLOOD SPECIMENOrdering Facility: [facility] Address: [address] [place] [address] Performed By: #### 1 9123-9, 07184-1, 277- ####[facility] LABIA [id number] [place] [address] [place] Sodium [Moles/Vol] 137 mmol/L Normal 136-144 [facility] Comment on above: Order Comment: Speci men Type: BLOOD SPECIMENOrdering Facility: [facility] Address: [address] [place] [place] [address] Performed By: #### 1 9123-9, 04952-1, 2777-1 ####[facility] LABCLIA [id number] [place] [address] [place] Urea nitrogen [Mass/Vol] 12 mg/dL Normal 7-[address] [facility] Comment on above: Order Comment: Speci men Type: BLOOD SPECIMENOrdering Facility: [facility] Address: [address] [place] [address] Performed By: #### 1 9123-9, 49709-1, 2777-1 ####[facility] LABIA [id number] [place] [address] [place] Magnesium SerPl-mCncon 09-23 Magnesium [Mass/Vol] 1.8 mg/dL Normal 1.7-2.3 [facility] Comment on above: Order Comment: Speci men Type: BLOOD SPECIMENOrdering Facility: [facility] Address: [address] [place] [address] Performed By: #### 1 9123-9, 31886-4, 2777-1 ####[facility] LABIA [id number] [place] [address] [place] Phosphate SerPl-mCncon 09-23 Phosphate [Mass/Vol] 1.7 mg/dL Low 2.7-4.8 [facility] Comment on above: Order Comment: Speci men Type: BLOOD SPECIMENOrdering Facility: [facility] Address: [address] [place], [place] [address] Performed By: #### 1 9123-9, 07932-1, 2777-1 ####[facility] LABIA [id number] [place] [id number] [place] THERAPY NTon 09-23-2024 THERAPY NT Normal [facility] ANES POSTPROC EVALon 025 ANES POSTPROC EVAL Normal [facility] ANES POSTPROC EVAL Normal [facility] CASE MANAGEMon 09-22-[address]NA[address] Normal [facility] CBC panel Auto (Bld)on 09-22 Erythrocyte distribution width (RBC) [Ratio] 13.7 % Normal 11.5-15.[address] [facility] Comment on above: Order Comment: Speci men Type: BLOOD SPECIMENOrdering Facility: [facility] Address: [address] [place] [address] Performed By: #### 5 8410-2 ####[facility] LABIA [id number] [place] [address] [place] Hematocrit (Bld) [Volume fraction] 33.8 % Low 36.0-46.[address] [facility] Comment on above: Order Comment: Speci men Type: BLOOD SPECIMENOrdering Facility: [facility] Address: [address] [place] [address] Performed By: #### 5 8410-2 ####[facility] LABIA [id number] [place] [address] [place] Hemoglobin (Bld) [Mass/Vol] 10.8 g/dL Low 11.5-15.[address] [facility] Comment on above: Order Comment: Speci men Type: BLOOD SPECIMENOrdering Facility: [facility] Address: [address] [place] [address] Performed By: #### 5 8410-2 ####[facility] LABIA [id number] [place] [address] [place] MCH (RBC) [Entitic mass] 29.1 pg Normal 26.0-34.[address] [facility] Comment on above: Order Comment: Speci men Type: BLOOD SPECIMENOrdering Facility: [facility] Address: [address] [place] [address] Performed By: #### 5 8410-2 ####[facility] LABIA [id number] [place] [address] [place] MCHC (RBC) [Mass/Vol] 32.0 g/dL Normal 30.5-36.0 [facility] Comment on above: Order Comment: Speci men Type: BLOOD SPECIMENOrdering Facility: [facility] Address: [address] [place] [address] Performed By: #### 5 8410-2 ####[facility] LABCLIA [id number] [place] [address] [place] MCV (RBC) [Entitic vol] 91.1 fL Normal 80.0-100.[address] [facility] Comment on above: Order Comment: Speci men Type: BLOOD SPECIMENOrdering Facility: [facility] Address: [address] [place] [address] Performed By: #### 5 8410-2 ####[facility] LABCLIA [id number] [place] [address] [place] Nucleated RBC (Bld) [#/Vol] 10*3/uL Normal <0.[address] [facility] Comment on above: Order Comment: Speci men Type: BLOOD SPECIMENOrdering Facility: [facility] Address: [address] [place] [address] Performed By: #### 5 8410-2 ####[facility] LABCLIA [id number] [place] [address] [place] Platelet mean volume (Bld) [Entitic vol] 10.6 fL Normal 9.0-12.[address] [facility] Comment on above: Order Comment: Speci men Type: BLOOD SPECIMENOrdering Facility: [facility] Address: [address] [place] [address] Performed By: #### 5 8410-2 ####[facility] LABCLIA [id number] [place] [address] [place] Platelets (Bld) [#/Vol] 147 10*3/uL Low 150-[address] [facility] Comment on above: Order Comment: Speci men Type: BLOOD SPECIMENOrdering Facility: [facility] Address: [address] [place] [address] Performed By: #### 5 8410-2 ####[facility] LABCLIA [id number] [place] [address] [place] RBC (Bld) [#/Vol] 3.71 10*6/uL Low 3.90-5.20 [facility] Comment on above: Order Comment: Speci men Type: BLOOD SPECIMENOrdering Facility: [facility] Address: [address] [place] [address] Performed By: #### 5 8410-2 ####[facility] LABIA [id number] [place] [address] [place] WBC (Bld) [#/Vol] 4.72 10*3/uL Normal 3.70-11.00 [facility] Comment on above: Order Comment: Speci men Type: BLOOD SPECIMENOrdering Facility: [facility] Address: [address] [place] [address] Performed By: #### 5 8410-2 ####[facility] LABIA [id number] [place] [address] [place] Comprehensive metabolic 2000 panelon 09-22-2024 Albumin [Mass/Vol] 3.2 g/dL Low 3.9-4.9 [facility] Comment on above: Order Comment: Speci men Type: BLOOD SPECIMENOrdering Facility: [facility] Address: [address] [place] [address] Performed By: #### 1 9123-9, 65558-0, 2777-1 ####[facility] LABIA [id number] [place] [address] [place] ALP [Catalytic activity/Vol] 74 U/L Normal 34-[address] [facility] Comment on above: Order Comment: Speci men Type: BLOOD SPECIMENOrdering Facility: [facility] Address: [address] [place] [address] Performed By: #### 1 9123-9, 84055-6, 2777- ####[facility] LABCLIA [id number] [place] [address] [place] ALT [Catalytic activity/Vol] 30 U/L Normal 7-[address] [facility] Comment on above: Order Comment: Speci men Type: BLOOD SPECIMENOrdering Facility: [facility] Address: [address] [place] [address] Performed By: #### 1 9123-9, 73739-4, 277- ####[facility] LABCLIA [id number] [place] [address] [place] Anion gap [Moles/Vol] 9 mmol/L Normal 8-15 [facility] Comment on above: Order Comment: Speci men Type: BLOOD SPECIMENOrdering Facility: [facility] Address: [address] [place] [address] Performed By: #### 1 9123-9, 43355-9, 2776- ####[facility] LABIA [id number] [place] [address] [place] AST [Catalytic activity/Vol] 45 U/L High 13-[address] [facility] Comment on above: Order Comment: Speci men Type: BLOOD SPECIMENOrdering Facility: [facility] Address: [address] [place] [address] Performed By: #### 1 9123-9, 18693-2, 277- ####[facility] LABCLIA [id number] [place] [address] [place] Bilirubin [Mass/Vol] 1.0 mg/dL Normal 0.2-1.3 [facility] Comment on above: Order Comment: Speci men Type: BLOOD SPECIMENOrdering Facility: [facility] Address: [address] [place] [address] Performed By: #### 1 9123-9, 16000-7, 277- ####[facility] LABCLIA [id number] [address] [address] [place] Calcium [Mass/Vol] 8.0 mg/dL Low 8.5-10.2 [facility] Comment on above: Order Comment: Speci men Type: BLOOD SPECIMENOrdering Facility: [facility] Address: [address] [place] [address] Performed By: #### 1 9123-9, 29509-9, 27702-15 ####[facility] LABCLIA [id number] [place] [id number] [place] Chloride [Moles/Vol] 102 mmol/L Normal 98-107 [facility] Comment on above: Order Comment: Speci men Type: BLOOD SPECIMENOrdering Facility: [facility] Address: [address] [place] [address] Performed By: #### 1 9123-9, 71756-9, 27702-15 ####[facility] LABCLIA [id number] [place] [address] [place] CO2 [Moles/Vol] 25 mmol/L Normal 22-[address] [facility] Comment on above: Order Comment: Speci men Type: BLOOD SPECIMENOrdering Facility: [facility] Address: [address] [place] [address] Performed By: #### 1 9123-9, 33910-4, 2776-08 ####[facility] LABCLIA [id number] [address] [address] [place] Creatinine [Mass/Vol] 0.82 mg/dL Normal 0.58-0.96 [facility] Comment on above: Order Comment: Speci men Type: BLOOD SPECIMENOrdering Facility: [facility] Address: [address] [place], [place] [address] Performed By: #### 1 9123-9, 46029-6, 277- ####[facility] LABCLIA [id number] [place] [address] [place] Creatinine and Glomerular filtration rate.predicted panel (S/P/Bld) 72 mL/min/1.73m??? Normal >=[address] [facility] Comment on above: Order Comment: Ramirez gamez Type: BLOOD SPECIMENOrdering Facility: [facility] Address: [address] [place] [address] Result Comment: Brandy mated Glomerular Filtration Rate [...] actual GFR. Performed By: #### 1 9123-9, 09787-6, 2777- ####[facility] LABCLIA [id number] [place] [address] [place] Glucose [Mass/Vol] 75 mg/dL Normal 74-99 [facility] Comment on above: Order Comment: Ramirez gamez Type: BLOOD SPECIMENOrdering Facility: [facility] Address: [address] [place] [address] Result Comment: The [place] [employer] Association (ADA) provides guidance for cutoff [...] Medical Care in Diabetes 2016, [place] [employer]. Diabetes Care. 2016.39(Suppl 1). Performed By: #### 1 9123-9, 42301-8, 2777-1 ####[facility] LABCLIA [id number] [id number] [address] [place] Potassium [Moles/Vol] 4.0 mmol/L Normal 3.7-5.1 [facility] Comment on above: Order Comment: Speci men Type: BLOOD SPECIMENOrdering Facility: [facility] Address: [address] [place] [address] Performed By: #### 1 9123-9, 53767-9, 277-1 ####[facility] LABCLIA [id number] [place] [address] [place] Protein [Mass/Vol] 5.5 g/dL Low 6.3-8.0 [facility] Comment on above: Order Comment: Speci men Type: BLOOD SPECIMENOrdering Facility: [facility] Address: [address] [place] [address] Performed By: #### 1 9123-9, 69566-7, 277- ####[facility] LABCLIA [id number] [place] [address] [place] Sodium [Moles/Vol] 136 mmol/L Normal 136-144 [facility] Comment on above: Order Comment: Speci men Type: BLOOD SPECIMENOrdering Facility: [facility] Address: [address] [place] [address] Performed By: #### 1 9123-9, 49336-2, 2776- ####[facility] LABCLIA [id number] [place] [address] [place] Urea nitrogen [Mass/Vol] 11 mg/dL Normal 7-[address] [facility] Comment on above: Order Comment: Speci men Type: BLOOD SPECIMENOrdering Facility: [facility] Address: [address] [place] [address] Performed By: #### 1 9123-9, 99864-1, 2777-1 ####[facility] LABCLIA [id number] [place] [address] [place] Magnesium SerPl-mCncon 09-22 Magnesium [Mass/Vol] 2.1 mg/dL Normal 1.7-2.3 [facility] Comment on above: Order Comment: Speci men Type: BLOOD SPECIMENOrdering Facility: [facility] Address: [address] [place] [address] Performed By: #### 1 9123-9, 07313-8, 2777-1 ####[facility] LABCLIA [id number] [place] [id number] [place] PT EDon 09-22-2024 PT ED Normal [facility] Phosphate SerPl-mCncon 09-22 Phosphate [Mass/Vol] 1.7 mg/dL Low 2.7-4.8 [facility] Comment on above: Order Comment: Speci men Type: BLOOD SPECIMENOrdering Facility: [facility] Address: [address] [place] [address] Performed By: #### 1 9123-9, 34898-9, 2777-1 ####[facility] LABCLIA [id number] [place] [id number] [place] THERAPY NTon 09-22-[address]24 [address] NT Normal [facility] Basic metabolic 2000 panelon 09-21-2024 Anion gap [Moles/Vol] 12 mmol/L Normal 8-15 [facility] Comment on above: Order Comment: Speci men Type: BLOOD SPECIMENOrdering Facility: [facility] Address: [address] [place] [address] Performed By: #### 1 9123-9, 2777-1, 56274-7, 00597-7 ####[facility] LABIA [id number] [place] [id number] [place] Calcium [Mass/Vol] 8.0 mg/dL Low 8.5-10.2 [facility] Comment on above: Order Comment: Speci men Type: BLOOD SPECIMENOrdering Facility: [facility] Address: [address] [place] [address] Performed By: #### 1 9123-9, 2777-1, 84519-1, 11536-5 ####[facility] LABCLIA [id number] [address] [address] [place] Chloride [Moles/Vol] 102 mmol/L Normal 98-107 [facility] Comment on above: Order Comment: Speci men Type: BLOOD SPECIMENOrdering Facility: [facility] Address: [address] [place], [place] [address] Performed By: #### 1 9123-9, 2777-1, 94224-5, 18476-1 ####[facility] LABCLIA [id number] [place] [address] [place] CO2 [Moles/Vol] 24 mmol/L Normal 22-[address] [facility] Comment on above: Order Comment: Speci men Type: BLOOD SPECIMENOrdering Facility: [facility] Address: [address] [place] [address] Performed By: #### 1 9123-9, 2777-1, 01801-5, 58500-8 ####[facility] LABCLIA [id number] [place] [id number] [place] Creatinine [Mass/Vol] 0.78 mg/dL Normal 0.58-0.96 [facility] Comment on above: Order Comment: Speci men Type: BLOOD SPECIMENOrdering Facility: [facility] Address: [address] [place], [place] [address] Performed By: #### 1 9123-9, 2777-1, 47052-1, 92925-9 ####[facility] LABCLIA [id number] [place] [id number] [place] Creatinine and Glomerular filtration rate.predicted panel (S/P/Bld) 76 mL/min/1.73m??? Normal >=[address] [facility] Comment on above: Order Comment: Speci men Type: BLOOD SPECIMENOrdering Facility: [facility] Address: [address] [place] [place] [id number] Result Comment: Brandy mated Glomerular Filtration Rate [...] GFR. Performed By: #### 1 9123-9, 2777-1, 39008-1, 36023-4 ####[facility] LABIA [id number] [address] [address] [place] Glucose [Mass/Vol] 64 mg/dL Low 74-99 [facility] Comment on above: Order Comment: Speci men Type: BLOOD SPECIMENOrdering Facility: [facility] Address: [address] [place] [address] Result Comment: The Citizen Of [place] Diabetes Association (ADA) provides guidance for cutoff [...] Medical Care in Diabetes 2016, [place] [employer]. Diabetes Care. 2016.39(Suppl 1). Performed By: #### 1 9123-9, 2777-1, 17989-0, 73933-0 ####[facility] LABIA [id number] [place] [id number] [place] Potassium [Moles/Vol] 4.2 mmol/L Normal 3.7-5.1 [facility] Comment on above: Order Comment: Speci men Type: BLOOD SPECIMENOrdering Facility: [facility] Address: [address] [place] [address] Performed By: #### 1 9123-9, 2777-1, 30506-1, 94321-1 ####[facility] LABCLIA [id number] [place] [id number] [place] Sodium [Moles/Vol] 138 mmol/L Normal 136-144 [facility] Comment on above: Order Comment: Speci men Type: BLOOD SPECIMENOrdering Facility: [facility] Address: [address] [place] [address] Performed By: #### 1 9123-9, 2777-1, 89635-2, 62473-0 ####[facility] LABCLIA [id number] [place] [address] [place] Urea nitrogen [Mass/Vol] 15 mg/dL Normal 7-[address] [facility] Comment on above: Order Comment: Speci men Type: BLOOD SPECIMENOrdering Facility: [facility] Address: [address] [place] [address] Performed By: #### 1 9123-9, 2777-1, 64487-7, 94881-5 ####[facility] LABCLIA [id number] [place] [address] [place] CASE MANAGEMon 09-21-[address] [facility] CASE MGT INIT ASSESon 2024 CASE MGT INIT ASSES Normal [facility] CBC W Auto Differential pane l (Bld)on 09-21-2024 Basophils (Bld) [#/Vol] 10*3/uL Normal <0.[address] [facility] Comment on above: Order Comment: Speci men Type: BLOOD SPECIMENOrdering Facility: [facility] Address: [address] [place] [address] Performed By: #### 5 7021-8 ####[facility] LABCLIA [id number] [place] [address] [place] Basophils/100 WBC (Bld) 0.3 % Normal [facility] Comment on above: Order Comment: Speci men Type: BLOOD SPECIMENOrdering Facility: [facility] Address: [address] [place] [address] Performed By: #### 5 7021-8 ####[facility] LABCLIA [id number] [place] [address] [place] Differential cell count method Nom (Bld) Auto Normal [facility] Comment on above: Order Comment: Speci men Type: BLOOD SPECIMENOrdering Facility: [facility] Address: [address] [place] [address] Performed By: #### 5 7021-8 ####[facility] LABCLIA [id number] [place] [address] [place] Eosinophils (Bld) [#/Vol] 10*3/uL Normal <0.[address] [facility] Comment on above: Order Comment: Speci men Type: BLOOD SPECIMENOrdering Facility: [facility] Address: [address] [place] [address] Performed By: #### 5 7021-8 ####[facility] LABCLIA [id number] [place] [address] [place] Eosinophils/100 WBC (Bld) 0.2 % Normal [facility] Comment on above: Order Comment: Speci men Type: BLOOD SPECIMENOrdering Facility: [facility] Address: [address] [place] [address] Performed By: #### 5 7021-8 ####[facility] LABCLIA [id number] [place] [address] [place] Erythrocyte distribution width (RBC) [Ratio] 13.7 % Normal 11.5-15.[address] [facility] Comment on above: Order Comment: Speci men Type: BLOOD SPECIMENOrdering Facility: [facility] Address: [address] [place] [address] Performed By: #### 5 7021-8 ####[facility] LABCLIA [id number] [place] [address] [place] Hematocrit (Bld) [Volume fraction] 35.7 % Low 36.0-46.[address] [facility] Comment on above: Order Comment: Speci men Type: BLOOD SPECIMENOrdering Facility: [facility] Address: [address] [place] [address] Performed By: #### 5 7021-8 ####[facility] LABCLIA [id number] [place] [address] [place] Hemoglobin (Bld) [Mass/Vol] 11.2 g/dL Low 11.5-15.[address] [facility] Comment on above: Order Comment: Speci men Type: BLOOD SPECIMENOrdering Facility: [facility] Address: [address] [place] [address] Performed By: #### 5 7021-8 ####[facility] LABCLIA [id number] [place] [address] [place] Immature granulocytes (Bld) [#/Vol] 10*3/uL Normal <0.[address] [facility] Comment on above: Order Comment: Speci men Type: BLOOD SPECIMENOrdering Facility: [facility] Address: [address] [place] [address] Performed By: #### 5 7021-8 ####[facility] LABCLIA [id number] [place] [address] [place] Immature granulocytes/100 WBC (Bld) 0.3 % Normal [facility] Comment on above: Order Comment: Speci men Type: BLOOD SPECIMENOrdering Facility: [facility] Address: [address] [place] [address] Performed By: #### 5 7021-8 ####[facility] LABCLIA [id number] [place] [address] [place] Lymphocytes (Bld) [#/Vol] 1.31 10*3/uL Normal 1.00-4.[address] [facility] Comment on above: Order Comment: Speci men Type: BLOOD SPECIMENOrdering Facility: [facility] Address: [address] [place] [address] Performed By: #### 5 7021-8 ####[facility] LABIA [id number] [place] [address] [place] Lymphocytes/100 WBC (Bld) 20.1 % Normal [facility] Comment on above: Order Comment: Speci men Type: BLOOD SPECIMENOrdering Facility: [facility] Address: [address] [place] [address] Performed By: #### 5 7021-8 ####[facility] LABIA [id number] [place] [address] [place] MCH (RBC) [Entitic mass] 28.9 pg Normal 26.0-34.[address] [facility] Comment on above: Order Comment: Speci men Type: BLOOD SPECIMENOrdering Facility: [facility] Address: [address] [place] [address] Performed By: #### 5 7021-8 ####[facility] LABIA [id number] [place] [address] [place] MCHC (RBC) [Mass/Vol] 31.4 g/dL Normal 30.5-36.0 [facility] Comment on above: Order Comment: Speci men Type: BLOOD SPECIMENOrdering Facility: [facility] Address: [address] [place] [address] Performed By: #### 5 7021-8 ####[facility] LABIA [id number] [place] [address] [place] MCV (RBC) [Entitic vol] 92.2 fL Normal 80.0-100.[address] [facility] Comment on above: Order Comment: Speci men Type: BLOOD SPECIMENOrdering Facility: [facility] Address: [address] [place] [address] Performed By: #### 5 7021-8 ####[facility] LABCLIA [id number] [place] [address] [place] Monocytes (Bld) [#/Vol] 0.54 10*3/uL Normal <0.[address] [facility] Comment on above: Order Comment: Speci men Type: BLOOD SPECIMENOrdering Facility: [facility] Address: [address] [place] [address] Performed By: #### 5 7021-8 ####[facility] LABCLIA [id number] [place] [address] [place] Monocytes/100 WBC (Bld) 8.3 % Normal [facility] Comment on above: Order Comment: Speci men Type: BLOOD SPECIMENOrdering Facility: [facility] Address: [address] [place] [address] Performed By: #### 5 7021-8 ####[facility] LABCLIA [id number] [place] [address] [place] Neutrophils (Bld) [#/Vol] 4.63 10*3/uL Normal 1.45-7.[address] [facility] Comment on above: Order Comment: Speci men Type: BLOOD SPECIMENOrdering Facility: [facility] Address: [address] [place] [address] Performed By: #### 5 7021-8 ####[facility] LABCLIA [id number] [place] [address] [place] Neutrophils/100 WBC (Bld) 70.8 % Normal [facility] Comment on above: Order Comment: Speci men Type: BLOOD SPECIMENOrdering Facility: [facility] Address: [address] [place] [address] Performed By: #### 5 7021-8 ####[facility] LABCLIA [id number] [place] [address] [place] Nucleated RBC (Bld) [#/Vol] 10*3/uL Normal <0.[address] [facility] Comment on above: Order Comment: Speci men Type: BLOOD SPECIMENOrdering Facility: [facility] Address: [address] [place] [address] Performed By: #### 5 7021-8 ####[facility] LABCLIA [id number] [place] [address] [place] Nucleated RBC/100 WBC (Bld) [Ratio] 0.0 /[address] [facility] Comment on above: Order Comment: Speci men Type: BLOOD SPECIMENOrdering Facility: [facility] Address: [address] [place] [address] Performed By: #### 5 7021-8 ####[facility] LABCLIA [id number] [place] [address] [place] Platelet mean volume (Bld) [Entitic vol] 10.7 fL Normal 9.0-12.[address] [facility] Comment on above: Order Comment: Speci men Type: BLOOD SPECIMENOrdering Facility: [facility] Address: [address] [place] [address] Performed By: #### 5 7021-8 ####[facility] LABIA [id number] [place] [address] [place] Platelets (Bld) [#/Vol] 158 10*3/uL Normal 150-[address] [facility] Comment on above: Order Comment: Speci men Type: BLOOD SPECIMENOrdering Facility: [facility] Address: [address] [place] [address] Performed By: #### 5 7021-8 ####[facility] LABIA [id number] [place] [address] [place] RBC (Bld) [#/Vol] 3.87 10*6/uL Low 3.90-5.20 [facility] Comment on above: Order Comment: Speci men Type: BLOOD SPECIMENOrdering Facility: [facility] Address: [address] [place] [address] Performed By: #### 5 7021-8 ####[facility] LABIA [id number] [place] [id number] [place] WBC (Bld) [#/Vol] 6.53 10*3/uL Normal 3.70-11.00 [facility] Comment on above: Order Comment: Speci men Type: BLOOD SPECIMENOrdering Facility: [facility] Address: [address] [place] [address] Performed By: #### 5 7021-8 ####[facility] LABIA [id number] [place] [address] [place] Hepatic function 2000 panelo n 09-21-2024 Albumin [Mass/Vol] 3.4 g/dL Low 3.9-4.9 [facility] Comment on above: Order Comment: Speci men Type: BLOOD SPECIMENOrdering Facility: [facility] Address: [address] [place] [address] Performed By: #### 1 9123-9, 2777-1, 03299-6, 16416-4 ####[facility] [id number] [place] [address] [place] ALP [Catalytic activity/Vol] 65 U/L Normal 34-[address] [facility] Comment on above: Order Comment: Speci men Type: BLOOD SPECIMENOrdering Facility: [facility] Address: [address] [place] [address] Performed By: #### 1 9123-9, 2777-1, 12188-3, 28812-2 ####[facility] LABIA [id number] [place] [address] [place] ALT [Catalytic activity/Vol] 30 U/L Normal 7-[address] [facility] Comment on above: Order Comment: Speci men Type: BLOOD SPECIMENOrdering Facility: [facility] Address: [address] [place] [address] Performed By: #### 1 9123-9, 2777-1, 89268-8, 27095-9 ####[facility] LABCLIA [id number] [address] [address] [place] AST [Catalytic activity/Vol] 52 U/L High 13-[address] [facility] Comment on above: Order Comment: Speci men Type: BLOOD SPECIMENOrdering Facility: [facility] Address: [address] [place] [address] Performed By: #### 1 9123-9, 2777-1, 27975-1, 27700-7 ####[facility] LABCLIA [id number] [place] [address] [place] Bilirubin [Mass/Vol] 0.9 mg/dL Normal 0.2-1.3 [facility] Comment on above: Order Comment: Speci men Type: BLOOD SPECIMENOrdering Facility: [facility] Address: [address] [place] [address] Performed By: #### 1 9123-9, 2777-1, 53603-3, 30535-1 ####[facility] LABCLIA [id number] [place] [address] [place] Bilirubin.conjugated [Mass/Vol] 0.3 mg/dL High <0.[address] [facility] Comment on above: Order Comment: Speci men Type: BLOOD SPECIMENOrdering Facility: [facility] Address: [address] [place] [address] Performed By: #### 1 9123-9, 2777-1, 02339-1, 20026-2 ####[facility] LABCLIA [id number] [place] [id number] [place] Protein [Mass/Vol] 5.8 g/dL Low 6.3-8.0 [facility] Comment on above: Order Comment: Speci men Type: BLOOD SPECIMENOrdering Facility: [facility] Address: [address] [place] [address] Performed By: #### 1 9123-9, 2777-1, 82847-7, 59044-8 ####[facility] LABCLIA [id number] [place] [id number] [place] Magnesium SerPl-mCncon 09-21 Magnesium [Mass/Vol] 1.7 mg/dL Normal 1.7-2.3 [facility] Comment on above: Order Comment: Speci men Type: BLOOD SPECIMENOrdering Facility: [facility] Address: [address] [place] [address] Performed By: #### 1 9123-9, 2777-1, 78471-0, 73632-5 ####[facility] LABCLIA [id number] [place] [address] [place] Phosphate SerPl-ncon 09-21 Phosphate [Mass/Vol] 2.7 mg/dL Normal 2.7-4.8 [facility] Comment on above: Order Comment: Speci men Type: BLOOD SPECIMENOrdering Facility: [facility] Address: [address] [place] [address] Performed By: #### 1 9123-9, 2777-1, 00294-3, 31939-4 ####[facility] LABCLIA [id number] [place] [address] [place] THERAPY NTon 09-21-[address]24 [address] NT Normal [facility] ANES PRE-OPon 09-20-2024 ANES PRE-OP Normal [facility] BRIEF OP NOTon 09-20-2024 BRIEF OP NOT Normal [facility] CBC panel Auto (Bld)on 09-20 Erythrocyte distribution width (RBC) [Ratio] 14.1 % Normal 11.5-15.[address] [facility] Comment on above: Order Comment: Speci men Type: BLOOD SPECIMENOrdering Facility: [facility] Address: [address] [place] [address] Performed By: #### 5 8410-2 ####[facility] LABCLIA [id number] [place] [address] [place] Hematocrit (Bld) [Volume fraction] 35.4 % Low 36.0-46.[address] [facility] Comment on above: Order Comment: Speci men Type: BLOOD SPECIMENOrdering Facility: [facility] Address: [address] [place] [address] Performed By: #### 5 8410-2 ####[facility] LABIA [id number] [place] [address] [place] Hemoglobin (Bld) [Mass/Vol] 11.1 g/dL Low 11.5-15.[address] [facility] Comment on above: Order Comment: Speci men Type: BLOOD SPECIMENOrdering Facility: [facility] Address: [address] [place] [address] Performed By: #### 5 8410-2 ####[facility] LABIA [id number] [place] [address] [place] MCH (RBC) [Entitic mass] 28.5 pg Normal 26.0-34.[address] [facility] Comment on above: Order Comment: Speci men Type: BLOOD SPECIMENOrdering Facility: [facility] Address: [address] [place] [address] Performed By: #### 5 8410-2 ####[facility] LABIA [id number] [place] [address] [place] MCHC (RBC) [Mass/Vol] 31.4 g/dL Normal 30.5-36.0 [facility] Comment on above: Order Comment: Speci men Type: BLOOD SPECIMENOrdering Facility: [facility] Address: [address] [place] [address] Performed By: #### 5 8410-2 ####[facility] LABIA [id number] [place] [address] [place] MCV (RBC) [Entitic vol] 90.8 fL Normal 80.0-100.[address] [facility] Comment on above: Order Comment: Speci men Type: BLOOD SPECIMENOrdering Facility: [facility] Address: [address] [place] [address] Performed By: #### 5 8410-2 ####[facility] LABIA [id number] [place] [address] [place] Nucleated RBC (Bld) [#/Vol] 10*3/uL Normal <0.[address] [facility] Comment on above: Order Comment: Speci men Type: BLOOD SPECIMENOrdering Facility: [facility] Address: [address] [place] [address] Performed By: #### 5 8410-2 ####[facility] LABIA [id number] [place] [address] [place] Platelet mean volume (Bld) [Entitic vol] 10.0 fL Normal 9.0-12.[address] [facility] Comment on above: Order Comment: Speci men Type: BLOOD SPECIMENOrdering Facility: [facility] Address: [address] [place] [address] Performed By: #### 5 8410-2 ####[facility] LABIA [id number] [place] [address] [place] Platelets (Bld) [#/Vol] 137 10*3/uL Low 150-[address] [facility] Comment on above: Order Comment: Speci men Type: BLOOD SPECIMENOrdering Facility: [facility] Address: [address] [place] [address] Result Comment: Resu lts checked and verified.No clot detected. Performed By: #### 5 8410-2 ####[facility]IA [id number] [place] [address] [place] RBC (Bld) [#/Vol] 3.90 10*6/uL Normal 3.90-5.20 [facility] Comment on above: Order Comment: Speci men Type: BLOOD SPECIMENOrdering Facility: [facility] Address: [address] [place] [address] Performed By: #### 5 8410-2 ####[facility] LABCLIA [id number] [place] [address] [place] WBC (Bld) [#/Vol] 7.72 10*3/uL Normal 3.70-11.00 [facility] Comment on above: Order Comment: Speci men Type: BLOOD SPECIMENOrdering Facility: [facility] Address: [address] [place] [address] Performed By: #### 5 8410-2 ####[facility] LABIA [id number] [place] [address] [place] OPERATIVE NOon 09-20-2024 OPERATIVE NO Normal [facility] SURGICAL PATHOLOGYon 025 CASE REPORT Normal [facility] Comment on above: Order Comment: Speci men Type: TISSUE SPECIMENOrdering Facility: [facility] Address: [address] [place] [address] Result Comment: Surg [facility] Pathology Report Case: [id number] Provider: Anila De Paz MD Collected: 09/20/2024 11:38 AMOrdering Location: Admitting Received: 09/20/2024 02:49 PMPathologist: Susan Ku MDSpecimens: A) - Hernia Sac B) - Gallbladder Performed By: #### S ####[facility] LABIA [id number] [place] [address] [place] CLINICAL HISTORY Normal [facility] Comment on above: Order Comment: Speci men Type: TISSUE SPECIMENOrdering Facility: [facility] Address: [address] [place] [address] Result Comment: Pre- op diagnosis:Hiatal hernia [K44.9]Epigastric pain [R10.13]Nausea and vomiting, unspecified vomiting type [R11.2]Pre-op exam [Z01.818] Performed By: #### S ####[facility] LABCLIA [id number] [address] [place] FINAL DIAGNOSIS Normal [facility] Comment on above: Order Comment: Speci men Type: TISSUE SPECIMENOrdering Facility: [facility] Address: [address] [place] [address] Result Comment: A. H ernia sac, resection:- Benign fibroadipose tissue.B. Gallbladder, cholecystectomy:- Mild chronic cholecystitis. Performed By: #### S ####[facility] LABCLIA [id number] [address] OF [facility] FINAL PERFORMING LAB Normal [facility] Comment on above: Order Comment: Speci men Type: TISSUE SPECIMENOrdering Facility: [facility] Address: [address] [place] [address] Result Comment: Diag nostic interpretation performed at: [facility], [address] [place] [address] CLIA# [id number] Director: Rosales Quintana MD Performed By: #### S ####[facility] LABCLIA [id number] [address] GROSS DESCRIPTION A. Hernia Sac Normal [facility] Comment on above: Order Comment: Speci men Type: TISSUE SPECIMENOrdering Facility: [facility] Address: [address] [place] [address] Result Comment: Rece ived in formalin, labeled [...] The cystic duct margin (en face) and retail wireless sales representative sections of the gallbladder wall are submitted in B1.KSZ September 20, 2024 3:38 PMGross examination performed at [facility], [address] [place] [address] Performed By: #### S ####[facility] LABCLIA [id number] [place] [address] [place] Chest without Contraston Chest without Contrast Normal [facility] Emergency Department Summary on 09-18-2024 Emergency Department Summary Normal [facility] CBC W Auto Differential pane l (Bld)on 09-14-2024 Basophils (Bld) [#/Vol] 10*3/uL Normal <0.[address] [facility] Comment on above: Order Comment: Speci men Type: BLOOD SPECIMENOrdering Facility: [facility] Address: [address] [place] [address] Performed By: #### 5 7021-8 ####[facility] [id number] [place] [address] [place] Basophils/100 WBC (Bld) 0.2 % Normal [facility] Comment on above: Order Comment: Speci men Type: BLOOD SPECIMENOrdering Facility: [facility] Address: [address] [place] [address] Performed By: #### 5 7021-8 ####[facility] SYSTEMLIA [id number] [place] [address] [place] Differential cell count method Nom (Bld) Auto Normal [facility] Comment on above: Order Comment: Speci men Type: BLOOD SPECIMENOrdering Facility: [facility] Address: [address] [place] [address] Performed By: #### 5 7021-8 ####[facility] MILLWNCLIA [id number] [place] [address] [place] Eosinophils (Bld) [#/Vol] 0.10 10*3/uL Normal <0.[address] [facility] Comment on above: Order Comment: Speci men Type: BLOOD SPECIMENOrdering Facility: [facility] Address: [address] [place] [address] Performed By: #### 5 7021-8 ####[facility] SYSTEMLIA [id number] [place] [address] [place] Eosinophils/100 WBC (Bld) 1.8 % Normal [facility] Comment on above: Order Comment: Speci men Type: BLOOD SPECIMENOrdering Facility: [facility] Address: [address] [place] [address] Performed By: #### 5 7021-8 ####[facility] SYSTEMLI [id number] [place] [address] [place] Erythrocyte distribution width (RBC) [Ratio] 14.1 % Normal 11.5-15.[address] [facility] Comment on above: Order Comment: Speci men Type: BLOOD SPECIMENOrdering Facility: [facility] Address: [address] [place] [address] Performed By: #### 5 7021-8 ####[facility] SYSTEMLIA [id number] [place] [address] [place] Hematocrit (Bld) [Volume fraction] 34.6 % Low 36.0-46.[address] [facility] Comment on above: Order Comment: Speci men Type: BLOOD SPECIMENOrdering Facility: [facility] Address: [address] [place] [address] Performed By: #### 5 7021-8 ####[facility]ENTERNCLIA [id number] [place] [address] [place] Hemoglobin (Bld) [Mass/Vol] 11.2 g/dL Low 11.5-15.[address] [facility] Comment on above: Order Comment: Speci men Type: BLOOD SPECIMENOrdering Facility: [facility] Address: [address] [place] [address] Performed By: #### 5 7021-8 ####[facility] HOSPITALWNCLIA [id number] [place] [address] [place] Immature granulocytes (Bld) [#/Vol] 10*3/uL Normal <0.[address] [facility] Comment on above: Order Comment: Speci men Type: BLOOD SPECIMENOrdering Facility: [facility] Address: [address] [place] [address] Performed By: #### 5 7021-8 ####[facility]NCINTERM[facility] [id number] [place] [address] [place] Immature granulocytes/100 WBC (Bld) 0.2 % Normal [facility] Comment on above: Order Comment: Speci men Type: BLOOD SPECIMENOrdering Facility: [facility] Address: [address] [place] [address] Performed By: #### 5 7021-8 ####[facility] [id number] [place] [address] [place] Lymphocytes (Bld) [#/Vol] 1.92 10*3/uL Normal 1.00-4.[address] [facility] Comment on above: Order Comment: Speci men Type: BLOOD SPECIMENOrdering Facility: [facility] Address: [address] [place] [address] Performed By: #### 5 7021-8 ####[facility]ENTERNCLIA [id number] [place] [address] [place] Lymphocytes/100 WBC (Bld) 35.0 % Normal [facility] Comment on above: Order Comment: Speci men Type: BLOOD SPECIMENOrdering Facility: [facility] Address: [address] [place] [address] Performed By: #### 5 7021-8 ####[facility] KAI [id number] [address] MCH (RBC) [Entitic mass] 29.4 pg Normal 26.0-34.[address] [facility] Comment on above: Order Comment: Speci men Type: BLOOD SPECIMENOrdering Facility: [facility] Address: [address] [place] [address] Performed By: #### 5 7021-8 ####[facility] CENTERNCJESUS [id number] [address] [place] MCHC (RBC) [Mass/Vol] 32.4 g/dL Normal 30.5-36.0 [facility] Comment on above: Order Comment: Speci men Type: BLOOD SPECIMENOrdering Facility: [facility] Address: [address] [place] [address] Performed By: #### 5 7021-8 ####[facility] CENTERMORIAHStacy [id number] [place] [address] [place] MCV (RBC) [Entitic vol] 90.8 fL Normal 80.0-100.[address] [facility] Comment on above: Order Comment: Speci men Type: BLOOD SPECIMENOrdering Facility: [facility] Address: [address] [place] [address] Performed By: #### 5 7021-8 ####[facility] [id number] [place] [address] [facility] [place] Monocytes (Bld) [#/Vol] 0.43 10*3/uL Normal <0.[address] [facility] Comment on above: Order Comment: Speci men Type: BLOOD SPECIMENOrdering Facility: [facility] Address: [address] [place] [address] Performed By: #### 5 7021-8 ####[facility] HOSPITALWNCLIA [id number] [place] [address] [place] Monocytes/100 WBC (Bld) 7.8 % Normal [facility] Comment on above: Order Comment: Speci men Type: BLOOD SPECIMENOrdering Facility: [facility] Address: [address] [place] [address] Performed By: #### 5 7021-8 ####[facility] SYSTEMLIA [id number] [place] [address] [place] Neutrophils (Bld) [#/Vol] 3.01 10*3/uL Normal 1.45-7.[address] [facility] Comment on above: Order Comment: Speci men Type: BLOOD SPECIMENOrdering Facility: [facility] Address: [address] [place] [address] Performed By: #### 5 7021-8 ####[facility]ITALA [id number] [place] [address] [place] Neutrophils/100 WBC (Bld) 55.0 % Normal [facility] Comment on above: Order Comment: Speci men Type: BLOOD SPECIMENOrdering Facility: [facility] Address: [address] [place] [address] Performed By: #### 5 7021-8 ####[facility] SYSTEMLIA [id number] [place] [address] [place] Nucleated RBC (Bld) [#/Vol] 10*3/uL Normal <0.[address] [facility] Comment on above: Order Comment: Speci men Type: BLOOD SPECIMENOrdering Facility: [facility] Address: [address] [place] [address] Performed By: #### 5 7021-8 ####[facility] CENTERNCLIA [id number] [place] [address] [place] Nucleated RBC/100 WBC (Bld) [Ratio] 0.0 /[address] [facility] Comment on above: Order Comment: Speci men Type: BLOOD SPECIMENOrdering Facility: [facility] Address: [address] [place] [address] Performed By: #### 5 7021-8 ####[facility]NCINTERM[facility] [id number] [place] [address] [place] Platelet mean volume (Bld) [Entitic vol] 10.1 fL Normal 9.0-12.[address] [facility] Comment on above: Order Comment: Speci men Type: BLOOD SPECIMENOrdering Facility: [facility] Address: [address] [place] [address] Performed By: #### 5 7021-8 ####[facility] [id number] [place] [address] [place] Platelets (Bld) [#/Vol] 148 10*3/uL Low 150-[address] [facility] Comment on above: Order Comment: Speci men Type: BLOOD SPECIMENOrdering Facility: [facility] Address: [address] [place] [address] Performed By: #### 5 7021-8 ####[facility]ENTERNCINTER[facility] [id number] [place] [address] [place] RBC (Bld) [#/Vol] 3.81 10*6/uL Low 3.90-5.20 [facility] Comment on above: Order Comment: Speci men Type: BLOOD SPECIMENOrdering Facility: [facility] Address: [address] [place] [address] Performed By: #### 5 7021-8 ####[facility] CENTERNCLIA [id number] [place] [address] [place] WBC (Bld) [#/Vol] 5.48 10*3/uL Normal 3.70-11.00 [facility] Comment on above: Order Comment: Speci men Type: BLOOD SPECIMENOrdering Facility: [facility] Address: [address] [place] [address] Performed By: #### 5 7021-8 ####[facility] RAFITA MILLTOWNCLIA [id number] [place] [address] [place] [facility] CON[facility]M BLOOD TYPEon 025 ABO A Normal [facility] Comment on above: Order Comment: Speci men Type: BLOOD SPECIMENOrdering Facility: [facility] Address: [address] [place] [address] Performed By: #### C ONABO ####[facility] BLO[facility] BANKCLIA [id number] [place] [address] [place] Rh Nom (Bld) Positive Normal [facility] Comment on above: Order Comment: Speci men Type: BLOOD SPECIMENOrdering Facility: [facility] Address: [address] [place] [address] Performed By: #### C ONABO ####[facility] BLOOD BANKCLIA [id number] [place] [address] [place] Comprehensive metabolic 2000 panelon 09-14-2024 Albumin [Mass/Vol] 3.9 g/dL Normal 3.9-4.9 [facility] Comment on above: Order Comment: Speci men Type: BLOOD SPECIMENOrdering Facility: [facility] Address: [address] [place] [address] Performed By: #### 2 4323-8 ####[facility] RAFITA MILLWNCLIA [id number] [place] [address] [place] ALP [Catalytic activity/Vol] 66 U/L Normal 34-[address] [facility] Comment on above: Order Comment: Speci men Type: BLOOD SPECIMENOrdering Facility: [facility] Address: [address] [place] [address] Performed By: #### 2 4323-8 ####[facility] MILLWNCLIA [id number] [place] [address] [place] ALT [Catalytic activity/Vol] 15 U/L Normal 7-[address] [facility] Comment on above: Order Comment: Speci men Type: BLOOD SPECIMENOrdering Facility: [facility] Address: [address] [place] [address] Performed By: #### 2 4323-8 ####[facility] RAFITA MILLTOWNCLIA [id number] [place] [address] [place] Anion gap [Moles/Vol] 7 mmol/L Low 8-15 [facility] Comment on above: Order Comment: Speci men Type: BLOOD SPECIMENOrdering Facility: [facility] Address: [address] [place] [address] Performed By: #### 2 4323-8 ####[facility]ENTERNCLIA [id number] [place] [address] [place] AST [Catalytic activity/Vol] 20 U/L Normal 13-[address] [facility] Comment on above: Order Comment: Speci men Type: BLOOD SPECIMENOrdering Facility: [facility] Address: [address] [place] [address] Performed By: #### 2 4323-8 ####[facility] HOSPITALWNCLIA [id number] [place] [address] [place] Bilirubin [Mass/Vol] 0.3 mg/dL Normal 0.2-1.3 [facility] Comment on above: Order Comment: Speci men Type: BLOOD SPECIMENOrdering Facility: [facility] Address: [address] [place] [address] Performed By: #### 2 4323-8 ####[facility] MILLTOWNCLIA [id number] [place] [address] [place] Calcium [Mass/Vol] 9.3 mg/dL Normal 8.5-10.2 [facility] Comment on above: Order Comment: Speci men Type: BLOOD SPECIMENOrdering Facility: [facility] Address: [address] [place] [address] Performed By: #### 2 4323-8 ####[facility] HERMINIOGREAT BENDNCLIA [id number] [place] [address] [place] Chloride [Moles/Vol] 106 mmol/L Normal 98-107 [facility] Comment on above: Order Comment: Speci men Type: BLOOD SPECIMENOrdering Facility: [facility] Address: [address] [place] [address] Performed By: #### 2 4323-8 ####[facility]ENTERNCLIA [id number] [place] [address] [place] CO2 [Moles/Vol] 27 mmol/L Normal 22-[address] [facility] Comment on above: Order Comment: Speci men Type: BLOOD SPECIMENOrdering Facility: [facility] Address: [address] [place] [address] Performed By: #### 2 4323-8 ####[facility]ENTERNCLIA [id number] [place] [address] [place] Creatinine [Mass/Vol] 0.99 mg/dL High 0.58-0.96 [facility] Comment on above: Order Comment: Speci men Type: BLOOD SPECIMENOrdering Facility: [facility] Address: [address] [place] [address] Performed By: #### 2 4323-8 ####[facility] CENTERNCLIA [id number] [place] [address] [place] Creatinine and Glomerular filtration rate.predicted panel (S/P/Bld) 57 mL/min/1.73m??? Low >=[address] [facility] Comment on above: Order Comment: Speci men Type: BLOOD SPECIMENOrdering Facility: [facility] Address: [address] [place] [address] Result Comment: Brandy mated Glomerular Filtration Rate [...] actual GFR. Performed By: #### 2 4323-8 ####[facility] [id number] [place] [address] [place] Glucose [Mass/Vol] 92 mg/dL Normal 74-99 [facility] Comment on above: Order Comment: Ramirez gamez Type: BLOOD SPECIMENOrdering Facility: [facility] Address: [address] [place] [address] Result Comment: The Citizen [place] Diabetes Association (ADA) provides guidance for cutoff [...] Medical Care in Diabetes 2016, [place] Diabetes Association. Diabetes Care. 2016.39(Suppl 1). Performed By: #### 2 4323-8 ####[facility] [id number] [place] [address] [place] Potassium [Moles/Vol] 4.1 mmol/L Normal 3.7-5.1 [facility] Comment on above: Order Comment: aRmirez gamez Type: BLOOD SPECIMENOrdering Facility: [facility] Address: [address] [place] [address] Performed By: #### 2 4323-8 ####[facility] [id number] [place] [address] [place] Protein [Mass/Vol] 6.4 g/dL Normal 6.3-8.0 [facility] Comment on above: Order Comment: Speci men Type: BLOOD SPECIMENOrdering Facility: [facility] Address: [address] [place] [address] Performed By: #### 2 4323-8 ####[facility] SYSTEMLIA [id number] [place] [address] [place] Sodium [Moles/Vol] 140 mmol/L Normal 136-144 [facility] Comment on above: Order Comment: Speci men Type: BLOOD SPECIMENOrdering Facility: [facility] Address: [address] [place] [address] Performed By: #### 2 4323-8 ####[facility] [id number] [place] [address] [place] Urea nitrogen [Mass/Vol] 34 mg/dL High 7-[address] [facility] Comment on above: Order Comment: Speci men Type: BLOOD SPECIMENOrdering Facility: [facility] Address: [address] [place] [address] Performed By: #### 2 4323-8 ####[facility] SYSTEMLI [id number] [place] [address] [place] HISTORY PHYSICALon HISTORY PHYSICAL Normal [facility] LIPID PANEL, NONFASTINGon Cholesterol [Mass/Vol] 137 mg/dL Normal <[address] [facility] Comment on above: Order Comment: Speci men Type: BLOOD SPECIMENOrdering Facility: [facility] Address: [address] [place] [address] Result Comment: <200 mg/dL, Desirable 200-239 mg/dL, Borderline high>239 mg/dL, High Performed By: #### L IPNF ####[facility] LABCLIA [id number] [address] HDL CHOLESTEROL, NF 63 mg/dL Normal >39 [facility] Comment on above: Order Comment: Ramirez gamez Type: BLOOD SPECIMENOrdering Facility: [facility] Address: [address] [place] [address] Result Comment: 40-5 9 mg/dL, Acceptable>59 mg/dL, High: Negative risk factor for coronary heart disease<40 mg/dL, Low: Positive risk factor for coronary heart disease Performed By: #### L IPNF ####[facility] LABCLIA [id number] [address] LDL CHOLESTEROL, NF 61 mg/dL Normal <100 [facility] Comment on above: Order Comment: Ramirez gamez Type: BLOOD SPECIMENOrdering Facility: [facility] Address: [address] [place] [address] Result Comment: <100 mg/dL, Optimal 100-129 mg/dL, Near optimal/above optimal 130-159 mg/dL, Borderline high 160-189 mg/dL, High>189 mg/dL, Very highSecondary prevention optimal LDL Cholesterol levels are recommended to be < 70 mg/dL Performed By: #### L IPNF ####[facility] LABCLIA [id number] [address] LDL/HDL RATIO, NF 0.97 mg/dL Normal <2.54 [facility] Comment on above: Order Comment: Ramirez franco Type: BLOOD SPECIMENOrdering Facility: [facility] Address: [address] [place] [address] Result Comment: Refe rence:1. National Cholesterol Education Program ATP III Guideline At-A-Glance Quick Desk Reference: National Heart, Lung, and Blood [place]. National Institutes of Health. 2001: NIH Publication No. 01-3305.2. An International Atherosclerosis Society position paper: global recommendations for the management of dyslipidemia: executive summary, Atherosclerosis. 2014: 232(2):410-413. Performed By: #### L IPNF ####[facility] LABCLIA [id number] [place] [address] [place] NON HDL CHOL, NF 74 mg/dL Normal <130 [facility] Comment on above: Order Comment: Speci men Type: BLOOD SPECIMENOrdering Facility: [facility] Address: [address] [place] [address] Result Comment: <130 mg/dL, Optimal 130-159 mg/dL, Near optimal/above optimal 160-189 mg/dL, Borderline high 190-219 mg/dL, High>219 mg/dL, Very highSecondary prevention optimal non HDL Cholesterol levels are recommended to be <100 mg/dL Performed By: #### L IPNF ####[facility] LABCLIA [id number] [place] [address] [place] T CHOL/HDL RATIO NF 2.17 mg/dL Normal <5.10 [facility] Comment on above: Order Comment: Speci men Type: BLOOD SPECIMENOrdering Facility: [facility] Address: [address] [place] [address] Performed By: #### L IPNF ####[facility] LABCLIA [id number] [place] [address] [place] TRIGLYCERIDES, NF 65 mg/dL Normal <150 [facility] Comment on above: Order Comment: Speci men Type: BLOOD SPECIMENOrdering Facility: [facility] Address: [address] [place] [address] Result Comment: <150 mg/dL, Normal 150-199 mg/dL, Borderline high 200-499 mg/dL, High>499 mg/dL, Very high Performed By: #### L IPNF ####[facility] LABCLIA [id number] [place] [address] [place] VLDL CHOLESTEROL, NF 13 mg/dL Normal <30 [facility] Comment on above: Order Comment: Speci men Type: BLOOD SPECIMENOrdering Facility: [facility] Address: [address] [place] [address] Performed By: #### L IPNF ####[facility] LABCLIA [id number] [place] [address] [place] TYPE AND SCREEN,30 DAYon ABO A Normal [facility] Comment on above: Order Comment: Speci men Type: BLOOD SPECIMENOrdering Facility: [facility] Address: [address] [place] [address] Performed By: #### T SCR30 ####[facility] BLOOD BANKCLIA [id number] [place] [address] [place] Rh Nom (Bld) Positive Normal [facility] Comment on above: Order Comment: Speci men Type: BLOOD SPECIMENOrdering Facility: [facility] Address: [address] [place] [address] Performed By: #### T [id number] ####CC [facility] BLOOD BANKIA [id number] [place] [address] [place] ANES POSTPROC EVALon 025 ANES POSTPROC EVAL Normal [facility] ANES PRE-OPon 09-13-2024 ANES PRE-OP Normal [facility] EGD Study observation Narrat iveon 09-13-2024 [facility] Radiology Study observation (narrative) [facility] ERCPon 09-13-[address] [facility] ERCP Study observation Narra tiveon 09-13-2024 [facility] Radiology Study observation (narrative) [facility] HISTORY PHYSICALon HISTORY PHYSICAL Normal [facility] NURSING PROGon 09-13-[address] [facility] NURSING PROG Normal [facility] NURSING PROG Normal [facility] Upper E[place]on 09-13-20[address] [place] [address] [facility] EMG(NEURO/NI)on 09-10-2024 Results can be seen in attached scanned documents. If you are a patient reviewing this test result, call the doctor who ordered the test with any questions. [facility] CNPNon 09-09-[address] [facility] CNPNon 09-08-[address] [facility] MR Biliary ducts and Pancrea tic [...] Lower chest: Unremarkable. DIVISION OF RADIOLOGY Provider, Alexis Blackmon [facility] - 09/07/2024 * * *Final Report* [...] be communicated with the ordering provider via [employer] staff message or phone message by [employer] within 2 business days of report finalization. --END OF FINDING-- Page Makeup System Operator: ARTHUR Transcribe Date/Time: Sep 07 2024 10:32A Dictated by : VON COLES DO This examination was interpreted and the report reviewed and electronically signed by: PIA DAVEY MD on Sep 07 2024 3:23PM [facility] MR Unspecified body region 3 D post processingon 09-07-2024 * * *Final Report* * * DATE OF EXAM: Sep 07 2024 9:50AM [facility] 0280 - MRI 3D POST PROCESSING [...] Lower chest: Unremarkable. DIVISION OF RADIOLOGY Provider, [facility] - 09/07/2024 * * *Final Report* * * DATE OF EXAM: Sep 07 2024 9:50AM [facility] 0280 - MRI 3D POST PROCESSING [...] be communicated with the ordering provider via [employer] staff message or phone message by [employer] within 2 business days of report finalization. --END OF FINDING-- Page Makeup System Operator: ARTHUR Transcribe Date/Time: Sep 07 2024 10:32A Dictated by : BALKARAN SANKET, DO This examination was interpreted and the report reviewed and electronically signed by: PIA DAVEY MD on Sep 07 2024 3:23PM EST [facility] MRI 3D POST PROCESSINGon MRI 3D POST PROCESSING Invalid Interpretation Code [facility] MRI PANC/MAGNOLIA WO/W IVCONon MRI PANC/MAGNOLIA WO/W IVCON Invalid Interpretation Code [facility] No Panel InformationOrdered By: Ccf Provider on 09-07-2024 Interpretation and review of laboratory results Abnormal [facility] Radiology Result ACTIONABLE Abnormal [facility] Comment on above: This report contains [...] contact your provider for the next steps. [facility] No Panel Informationon 09-07 IMPRESSION: Persistent [...] be communicated with the ordering provider via [employer] staff message or phone message by [employer] within 2 business days of report finalization. --END OF FINDING-- Page Makeup System Operator: ARTHUR Transcribe Date/Time: Sep 07 2024 10:32A Dictated by : VON COLES DO This examination was interpreted and the report reviewed and electronically signed by: PIA DAVEY MD on Sep 07 2024 3:23PM EST DIVISION OF RADIOLOGY Radiology Study observation (narrative) [facility] CNPNon 09-06-[address] [facility] CNCNPATEDon 09-03-[address] [facility] CNOVon 09-03-[address] [facility] HISTORY PHYSICALon HISTORY PHYSICAL Normal Clevelan mando [facility] CNPNon 08-25-[address] [facility] US CAROTID ARTERIES MAGNOLIA VAS LABon 08-25-2024 US CAROTID ARTERIES MAGNOLIA VAS LAB [address] [facility] CBC panel Auto (Bld)on 08-09 Erythrocyte distribution width (RBC) [Ratio] 13.9 % Normal 11.5-15.[address] [facility] Comment on above: Order Comment: Speci men Type: BLOOD SPECIMENOrdering Facility: [facility] Address: [address] [place] [address] Performed By: #### 5 8410-2 ####[facility] LABCLIA [id number] [place] [address] [place] Hematocrit (Bld) [Volume fraction] 38.9 % Normal 36.0-46.[address] [facility] Comment on above: Order Comment: Speci men Type: BLOOD SPECIMENOrdering Facility: [facility] Address: [address] [place] [address] Performed By: #### 5 8410-2 ####[facility] LABCLIA [id number] [place] [address] [place] Hemoglobin (Bld) [Mass/Vol] 12.3 g/dL Normal 11.5-15.[address] [facility] Comment on above: Order Comment: Speci men Type: BLOOD SPECIMENOrdering Facility: [facility] Address: [address] [place] [address] Performed By: #### 5 8410-2 ####[facility] LABCLIA [id number] [place] [address] [place] MCH (RBC) [Entitic mass] 29.6 pg Normal 26.0-34.[address] [facility] Comment on above: Order Comment: Speci men Type: BLOOD SPECIMENOrdering Facility: [facility] Address: [address] [place] [address] Performed By: #### 5 8410-2 ####[facility] LABCLIA [id number] [place] [address] [place] MCHC (RBC) [Mass/Vol] 31.6 g/dL Normal 30.5-36.0 [facility] Comment on above: Order Comment: Speci men Type: BLOOD SPECIMENOrdering Facility: [facility] Address: [address] [place] [address] Performed By: #### 5 8410-2 ####[facility] LABIA [id number] [place] [address] [place] MCV (RBC) [Entitic vol] 93.7 fL Normal 80.0-100.[address] [facility] Comment on above: Order Comment: Speci men Type: BLOOD SPECIMENOrdering Facility: [facility] Address: [address] [place] [address] Performed By: #### 5 8410-2 ####[facility] LABIA [id number] [place] [address] [place] Nucleated RBC (Bld) [#/Vol] 10*3/uL Normal <0.[address] [facility] Comment on above: Order Comment: Speci men Type: BLOOD SPECIMENOrdering Facility: [facility] Address: [address] [place] [address] Performed By: #### 5 8410-2 ####[facility] LABIA [id number] [place] [address] [place] Platelet mean volume (Bld) [Entitic vol] 10.4 fL Normal 9.0-12.[address] [facility] Comment on above: Order Comment: Speci men Type: BLOOD SPECIMENOrdering Facility: [facility] Address: [address] [place] [address] Performed By: #### 5 8410-2 ####[facility] LABIA [id number] [place] [address] [place] Platelets (Bld) [#/Vol] 210 10*3/uL Normal 150-[address] [facility] Comment on above: Order Comment: Speci men Type: BLOOD SPECIMENOrdering Facility: [facility] Address: [address] [place] [address] Performed By: #### 5 8410-2 ####[facility] LABCLIA [id number] [place] [address] [place] RBC (Bld) [#/Vol] 4.15 10*6/uL Normal 3.90-5.20 [facility] Comment on above: Order Comment: Speci men Type: BLOOD SPECIMENOrdering Facility: [facility] Address: [address] [place] [address] Performed By: #### 5 8410-2 ####[facility] LABCLIA [id number] [place] [address] [place] WBC (Bld) [#/Vol] 5.66 10*3/uL Normal 3.70-11.00 [facility] Comment on above: Order Comment: Speci men Type: BLOOD SPECIMENOrdering Facility: [facility] Address: [address] [place] [address] Performed By: #### 5 8410-2 ####[facility] LABIA [id number] [place] [address] [place] Comprehensive metabolic 2000 panelon 08-09-2024 Albumin [Mass/Vol] 3.7 g/dL Low 3.9-4.9 [facility] Comment on above: Order Comment: Speci men Type: BLOOD SPECIMENOrdering Facility: [facility] Address: [address] [place] [address] Performed By: #### 2 4323-8 ####[facility] LABCLIA [id number] [place] [address] [place] ALP [Catalytic activity/Vol] 70 U/L Normal 34-[address] [facility] Comment on above: Order Comment: Speci men Type: BLOOD SPECIMENOrdering Facility: [facility] Address: [address] [id number] Performed By: #### 2 4323-8 ####[facility] LABCLIA [id number] [place] [address] [place] ALT [Catalytic activity/Vol] 19 U/L Normal 7-[address] [facility] Comment on above: Order Comment: Speci men Type: BLOOD SPECIMENOrdering Facility: [facility] Address: [address] [place] [address] Performed By: #### 2 4323-8 ####[facility] LABCLIA [id number] [place] [address] [place] Anion gap [Moles/Vol] 12 mmol/L Normal 8-15 [facility] Comment on above: Order Comment: Speci men Type: BLOOD SPECIMENOrdering Facility: [facility] Address: [address] [place] [address] Performed By: #### 2 4323-8 ####[facility] LABCLIA [id number] [place] [address] [place] AST [Catalytic activity/Vol] 29 U/L Normal 13-[address] [facility] Comment on above: Order Comment: Speci men Type: BLOOD SPECIMENOrdering Facility: [facility] Address: [address] [place], [place] [address] Performed By: #### 2 4323-8 ####[facility] LABCLIA [id number] [place] [address] [place] Bilirubin [Mass/Vol] 0.4 mg/dL Normal 0.2-1.3 [facility] Comment on above: Order Comment: Speci men Type: BLOOD SPECIMENOrdering Facility: [facility] Address: [address] [place], [place] [address] Performed By: #### 2 4323-8 ####[facility] LABCLIA [id number] [place] [address] [place] Calcium [Mass/Vol] 9.0 mg/dL Normal 8.5-10.2 [facility] Comment on above: Order Comment: Speci men Type: BLOOD SPECIMENOrdering Facility: [facility] Address: [address] [place] [address] Performed By: #### 2 4323-8 ####[facility] LABCLIA [id number] [place] [address] [place] Chloride [Moles/Vol] 104 mmol/L Normal 98-107 [facility] Comment on above: Order Comment: Speci men Type: BLOOD SPECIMENOrdering Facility: [facility] Address: [address] [place] [address] Performed By: #### 2 4323-8 ####[facility] LABCLIA [id number] [place] [address] [place] CO2 [Moles/Vol] 23 mmol/L Normal 22-[address] [facility] Comment on above: Order Comment: Speci men Type: BLOOD SPECIMENOrdering Facility: [facility] Address: [address] [place] [address] Performed By: #### 2 4323-8 ####[facility] LABCLIA [id number] [place] [address] [place] Creatinine [Mass/Vol] 0.85 mg/dL Normal 0.58-0.96 [facility] Comment on above: Order Comment: Speci men Type: BLOOD SPECIMENOrdering Facility: [facility] Address: [address] [place] [address] Performed By: #### 2 4323-8 ####[facility] LABCLIA [id number] [place] [address] [place] Creatinine and Glomerular filtration rate.predicted panel (S/P/Bld) 69 mL/min/1.73m??? Normal >=[address] [facility] Comment on above: Order Comment: Speci men Type: BLOOD SPECIMENOrdering Facility: [facility] Address: [address] [place] [address] Result Comment: Brandy mated Glomerular Filtration Rate [...] actual GFR. Performed By: #### 2 4323-8 ####[facility] LABCLIA [id number] [place] [address] [place] Glucose [Mass/Vol] 121 mg/dL High 74-99 [facility] Comment on above: Order Comment: Speci men Type: BLOOD SPECIMENOrdering Facility: [facility] Address: [address] [place] [address] Result Comment: The [place] Diabetes Association (ADA) provides guidance for cutoff [...] Medical Care in Diabetes 2016, [place] Diabetes Association. Diabetes Care. 2016.39(Suppl 1). Performed By: #### 2 4323-8 ####[facility] LABCLIA [id number] [place] [id number] [place] Potassium [Moles/Vol] 4.7 mmol/L Normal 3.7-5.1 [facility] Comment on above: Order Comment: Speci men Type: BLOOD SPECIMENOrdering Facility: [facility] Address: [address] [place] [address] Performed By: #### 2 4323-8 ####[facility] LABCLIA [id number] [place] [address] [place] Protein [Mass/Vol] 6.5 g/dL Normal 6.3-8.0 [facility] Comment on above: Order Comment: Speci men Type: BLOOD SPECIMENOrdering Facility: [facility] Address: [address] [place] [address] Performed By: #### 2 4323-8 ####[facility] LABCLIA [id number] [place] [address] [place] Sodium [Moles/Vol] 139 mmol/L Normal 136-144 [facility] Comment on above: Order Comment: Speci men Type: BLOOD SPECIMENOrdering Facility: [facility] Address: [address] [place] [address] Performed By: #### 2 4323-8 ####[facility] LABIA [id number] [place] [address] [place] Urea nitrogen [Mass/Vol] 20 mg/dL Normal 7-[address] [facility] Comment on above: Order Comment: Speci men Type: BLOOD SPECIMENOrdering Facility: [facility] Address: [address] [place] [address] Performed By: #### 2 4323-8 ####[facility] LABIA [id number] [place] [address] [place] PROTEIN ELECTROPHORESIS SERU M (P)on 08-09-2024 Albumin [Mass/Vol] 3.66 g/dL Normal 3.43-5.41 [facility] Comment on above: Order Comment: Speci men Type: BLOOD SPECIMENOrdering Facility: [facility] Address: [address] [place] [address] Performed By: #### L [id number] ####[facility] LABCLIA [id number] [place] [address] [place] Alpha 1 globulin Elph [Mass/Vol] 0.25 g/dL Normal 0.18-0.[address] [facility] Comment on above: Order Comment: Speci men Type: BLOOD SPECIMENOrdering Facility: [facility] Address: [address] [place] [address] Performed By: #### L [id number] ####[facility] LABIA [id number] [place] [address] [place] Alpha 2 globulin Elph [Mass/Vol] 0.67 g/dL Normal 0.42-0.[address] [facility] Comment on above: Order Comment: Speci men Type: BLOOD SPECIMENOrdering Facility: [facility] Address: [address] [place] [address] Performed By: #### L [id number] ####[facility] LABIA [id number] [place] [address] [place] Beta globulin Elph [Mass/Vol] 0.73 g/dL Normal 0.61-1.[address] [facility] Comment on above: Order Comment: Speci men Type: BLOOD SPECIMENOrdering Facility: [facility] Address: [address] [place] [address] Performed By: #### L [id number] ####[facility] LABIA [id number] [place] [address] [place] Gamma globulin Elph [Mass/Vol] 0.89 g/dL Normal 0.53-1.[address] [facility] Comment on above: Order Comment: Speci men Type: BLOOD SPECIMENOrdering Facility: [facility] Address: [address] [place] [address] Performed By: #### L [id number] ####[facility] LABIA [id number] [place] [address] [place] M-PROTEIN LOCATION Normal [facility] Comment on above: Order Comment: Speci men Type: BLOOD SPECIMENOrdering Facility: [facility] Address: [address] [place] [address] Result Comment: Not Applicable. Performed By: #### L [id number] ####[facility] LABIA [id number] [place] [address] [place] Protein Fractions [Interp] No definitive M protein is identified on protein electrophoresis. Normal No definitive M protein is identified on protein electrophor esis. [facility] Comment on above: Order Comment: Speci men Type: BLOOD SPECIMENOrdering Facility: [facility] Address: [address] [place] [address] Performed By: #### L [id number] ####[facility] LABIA [id number] [place] [address] [place] Protein.monoclonal Elph [Mass/Vol] 0.00 g/dL Normal <=0.[address] [facility] Comment on above: Order Comment: Speci men Type: BLOOD SPECIMENOrdering Facility: [facility] Address: [address] [place] [address] Performed By: #### L [id number] ####[facility] [id number] [place] [address] [place] SPE STAFF REVIEW Reviewed by Dr. Glenys Pierre MD [facility] Comment on above: Order Comment: Speci men Type: BLOOD SPECIMENOrdering Facility: [facility] Address: [address] [place] [address] Performed By: #### L [id number] ####[facility] LABIA [id number] [place] [address] [place] Prot SerPl-mCncon 08-09-2024 Protein [Mass/Vol] 6.2 g/dL Low 6.3-8.0 [facility] Comment on above: Order Comment: Speci men Type: BLOOD SPECIMENOrdering Facility: [facility] Address: [address] [place] [address] Performed By: #### 2 885-2, 2132-9 ####[facility] LABIA [id number] [place] [id number] [place] VITAMIN B1 (THIAMINE), WHOLE BLOODon 08-09-2024 Thiamine (Bld) [Moles/Vol] 220.5 nmol/L High 84.3-213.[address] [facility] Comment on above: Order Comment: Speci men Type: BLOOD SPECIMENOrdering Facility: [facility] Address: [address] [place] [address] Performed By: #### B 1WB ####[facility] LABCLIA [id number] [place] [address] [place] VITAMIN B6/PYRIDOXINon 08-09 VITAMIN B6 47.3 nmol/L Normal 20.0-125.[address] [facility] Comment on above: Order Comment: Speci men Type: BLOOD SPECIMENOrdering Facility: [facility] Address: [address] [place] [address] Result Comment: INTE RPRETIVE INFORMATION: Vitamin B6 (Pyridoxal 5-Phosphate)Pyridoxal 5'-phosphate measured in a specimen collected followingan 8-hour or overnight fast accurately indicates vitamin H2fowetyuvrhx status. Non-fasting specimen concentration reflectsrecent vitamin intake.This test was developed and its performance characteristicsdetermined by [employer]. It has not been cleared orapproved by the [place] Food and Drug Administration. This test wasperformed in a CLIA certified laboratory and is intended forclinical purposes.Performed By: [employer] [place], [place] [address]Oho[employer]fkhao Director: Estelle Bravo MD, PhDCLIA Number: [id number] Performed By: #### V ITB6 ####[facility] [id number] [place] [address] Vit B12 SerPl-mCncon 024 Cobalamin (Vitamin B12) [Mass/Vol] 1662 pg/mL High 232-[address] [facility] Comment on above: Order Comment: Speci men Type: BLOOD SPECIMENOrdering Facility: [facility] Address: [address] [place] [address] Performed By: #### 2 885-2, 2132-9 ####[facility] LABCLIA [id number] [place] [address] [place] CNOVon 08-06-[address] [facility] CNOVon 08-03-[address] [facility] ECG COMPLETEon 08-03-2024 Atrial Rate 75 BPM [facility] Calculated P [place] 42 degrees [facility] Calculated R [place] -[address] [facility] Calculated T [place] 49 degrees [facility] P-R Interval 188 ms [facility] QRS Duration 78 ms [facility] QT Interval 402 ms [facility] QTC Calculation (Bazett) 448 ms [facility] Ventricular Rate 75 BPM [facility] NAME : HUYEN ALCARAZ PID : [id number] : 1940 Gender : Female Race : ORD : [id number] Procedure Date : Aug 03 2024 15:41:45 Edit Date : Aug 03 2024 16:15:10 Diagnosis: NORMAL SINUS RHYTHM LEFT AXIS DEVIATION POOR R WAVE PROGRESSION INFERIOR MYOCARDIAL INFARCTION , AGE UNDETERMINED ABNORMAL ECG Confirmed by MD MARCIAL QARAB ([id number]), video tape editor TONYA IVEY ([id number]) on 08/03/2024 4:15:08 PM Test Reason : I25.2 H/O acute myocardial infarction Location : 137 : STCARD Overread By : MD MARCIAL QARAB Edited By : TONYA IVEY Referred By : ANILA DE PAZ Acquired by : [facility] ECG COMPLETE Normal [facility] ANES POSTPROC EVALon 024 ANES POSTPROC EVAL Normal [facility] ANES PRE-OPon 07-21-2024 ANES PRE-OP Normal [facility] EGD Study observation Narrat iveon 07-21-2024 [facility] Radiology Study observation (narrative) [facility] NURSING PROGon 07-21-[address] [facility] NURSING PROG Normal [facility] Upper GI endoscopyon 024 Upper GI endoscopy Normal [facility] CNPNon 07-19-[address] [facility] Knee 4 or More Viewson 07-19 Knee 4 or More Views Normal [facility] Orthopedic Visit Reporton Orthopedic Visit Report Normal [facility] HISTORY PHYSICALon HISTORY PHYSICAL Normal [facility] CNPNon 07-14-[address] [facility] Orthopedic Visit Reporton Orthopedic Visit Report Normal [facility] CNPNon 07-07-[address] [facility] MR/BMS.IMBon 07-07-2024 MR/BMS.IMB Normal [facility] Orthopedic Visit Reporton Orthopedic Visit Report Normal [facility] CNOVon 07-01-[address] [facility] CT ABD/PEL W IVCONon 024 CT ABD/PEL W IVCON Normal [facility] CT Abdomen and Pelvis W cont rast Chava 06-24-2024 IMPRESSION: Large hiatal hernia. Dilated pancreatic duct and marked dilation of the common bile duct to the level of the ampulla. Possible filling defect within the distal CBD. Consider MRCP to exclude ampullary mass/choledocholithiasis. Page Makeup System Operator: ROBERTS [place] Transcribe Date/Time: Jun 24 2024 4:00P Dictated by : STEPHANIE VIZCAINO MD This examination was interpreted and the report reviewed and electronically signed by: STEPHANIE VIZCAINO MD on Jun 24 2024 4:14PM [facility] DIVISION OF RADIOLOGY * * *Final Report* * * DATE OF EXAM: Jun 24 2024 3:12PM [facility] 0530 - CT ABD/PEL W [...] No additional findings. DIVISION OF RADIOLOGY Provider, [facility] - 06/24/2024 * * *Final Report* * * DATE OF EXAM: Jun 24 2024 3:12PM [facility] 0530 - CT ABD/PEL W [...] Biliary: Mild central intrahepatic biliary ductal dilation. October dilation of the common bile duct up [...] CBD. Consider MRCP to exclude ampullary mass/choledocholithiasis. Page Makeup System Operator: ARTHUR Transcribe Date/Time: Jun 24 2024 4:00P Dictated by : STEPHANIE VIZCAINO MD This examination was interpreted and the report reviewed and electronically signed by: STEPHANIE VIZCAINO MD on Jun 24 2024 4:14PM EST [facility] Radiology Study observation (narrative) [facility] CT Abdomen and Pelvis W cont rast IVOrdered By: Ccf Provider on 06-24-[address] [facility] [address] CHEST W IVCONon CT CHEST W IVCON Normal [facility] Inital Evaluation (1) - PTon 06-24-2024 Inital Evaluation (1) - PT Normal [facility] CREATININE BLDon 06-23-2024 Creatinine [Mass/Vol] 0.84 mg/dL Normal 0.58-0.96 [facility] Comment on above: Order Comment: Speci men Type: BLOOD SPECIMENOrdering Facility: [facility] Address: [address] [place] [address] Performed By: #### C RET1 ####[facility] [id number] [place] [address] [place] Creatinine and Glomerular filtration rate.predicted panel (S/P/Bld) 70 mL/min/1.73m??? Normal >=[address] [facility] Comment on above: Order Comment: Speci men Type: BLOOD SPECIMENOrdering Facility: [facility] Address: [address] [place] [address] Result Comment: Brandy mated Glomerular Filtration Rate [...] actual GFR. Performed By: #### C RET1 ####[facility] [id number] [place] [address] [place] CNCNPATEDon 06-18-[address] [facility] CNOVon 06-18-[address] [facility] HISTORY PHYSICALon HISTORY PHYSICAL Normal [facility] CNPNon 06-17-[address] [facility] Knee 4 or More Viewson 06-16 Knee 4 or More Views Normal [facility] Orthopedic Visit Reporton Orthopedic Visit Report Normal [facility] Brain/Head without Contrasto n 06-07-2024 Brain/Head without Contrast Normal [facility] Emergency Department Summary on 06-07-2024 Emergency Department Summary Normal [facility] Shoulder min 2 Viewson 06-07 Shoulder min 2 Views Normal [facility] Office Visit Reporton 2023 Office Visit Report Normal [facility] CNOVon 05-17-[address] [facility] OCT OPTIC NERVE CIRRUS OU (B OTH EYES)on 05-03-2024 [facility] Radiology Study observation (narrative) [facility] No Panel InformationOrdered By: Chema Perry on 10-14-2023 Free Triiodothyronine (T3) pg/dL 1.8 pg/mL 2.18-3.98 [facility] Serum or plasma thyroid stim ulating hormone (TSH) measurement (units/volume)Ordered By: Chema Perry on 10-14-2023 TSH Qn 1.27 uIU/mL 0.358-3.74 [facility] Thin prep Papanicolaou smear with manual screeningOrdered By: Chema Perry on 10-14-2023 Thin prep Papanicolaou smear with manual screening 1.20 ng/dL 0.76-1.46 [facility] Laboratory - Chemistry and C hemistry - challengeOrdered By: Chema Perry on 04-22-2023 Free T4 [Mass/Vol] 1.33 ng/dL 0.76-1.46 [facility] No Panel InformationOrdered By: Chema Perry on 04-22-2023 Free Triiodothyronine (T3) pg/dL 1.9 pg/mL 2.18-3.98 [facility] Thyroid Stimulating Hormone (TSH) 3.33 uIU/mL 0.358-3.74 [facility] Laboratory - Chemistry and C hemistry - challengeOrdered By: Dr. Perry on 01-15-2023 Free T4 [Mass/Vol] 1.10 ng/dL 0.76-1.46 [facility] No Panel InformationOrdered By: Dr. Perry on 01-15-2023 Free Triiodothyronine (T3) pg/dL 1.7 pg/mL 2.18-3.98 [facility] Thyroid Stimulating Hormone (TSH) 1.63 uIU/mL 0.358-3.74 [facility] MR Brain WO contraston 12-04 * * *Final Report* * * DATE OF EXAM: Dec 04 2022 2:13PM [facility] 3015 - MRI BRAIN W QUANT [...] Luis Manuel 2008). DIVISION OF RADIOLOGY Provider, Deysi Neymar [facility] - 12/04/2022 * * *Final Report* * * DATE OF EXAM: Dec 04 2022 2:13PM [facility] 3015 - MRI BRAIN W QUANT [...] dementia protocol and 3-D post-processing using the Laguo software at an independent workstation with concurrent [...] = Focal Lesions 2 = Beginning of [place] 3 = Diffuse Involvement of Entire Region [...] results from the analysis charts for details. Page Makeup System Operator: ARTHUR Transcribe Date/Time: Dec 04 2022 2:45P Dictated by : SUSAN LOMELI MD This examination was interpreted and the report reviewed and electronically signed by: SUSAN LOMELI MD on Dec 04 2022 3:20PM [facility] MR Unspecified body region 3 D post processingon 12-04-2022 * * *Final Report* * * DATE OF EXAM: Dec 04 2022 2:13PM [facility] 0280 - MRI 3D POST PROCESSING [...] Luis Manuel 2008). DIVISION OF RADIOLOGY Provider, [facility] - 12/04/2022 * * *Final Report* * * DATE OF EXAM: Dec 04 2022 2:13PM [facility] 0280 - MRI 3D POST PROCESSING [...] dementia protocol and 3-D post-processing using the Laguo software at an independent workstation with concurrent [...] = Focal Lesions 2 = Beginning of [place] 3 = Diffuse Involvement of Entire Region [...] results from the analysis charts for details. Page Makeup System Operator: ARTHUR Transcribe Date/Time: Dec 04 2022 2:45P Dictated by : SUSAN LOMELI MD This examination was interpreted and the report reviewed and electronically signed by: SUSAN LOMELI MD on Dec 04 2022 3:20PM [facility] No Panel Informationon 12-04 IMPRESSION: * No [...] = Focal Lesions 2 = Beginning of [place] 3 = Diffuse Involvement of Entire Region [...] results from the analysis charts for details. Page Makeup System Operator: ARTHUR Transcribe Date/Time: Dec 04 2022 2:45P Dictated by : SUSAN LOMELI MD This examination was interpreted and the report reviewed and electronically signed by: SUSAN LOMELI MD on Dec 04 2022 3:20PM [facility] DIVISION OF RADIOLOGY Radiology Study observation (narrative) [facility] No Panel InformationOrdered By: Ccf Provider on 12-04-2022 [facility] Absolute lymphocyte countOrd ered By: Dr. Perry on 12-03-2022 Lymphocytes Auto (Unsp spec) [#/Vol] 1.62 10*3/uL 0.83-4.51 [facility] Basophil percentageOrdered B y: Dr. Perry on 12-03-2022 Basophils/100 WBC (Bld) 0.7 % 0-1 [facility] Bilirubin [Mass/Vol] 0.60 mg/dL 0.20-1.00 [facility] Comment on above: For patients on eltr ombopag therapy, use of Dimension [place] TBIL is not recommended. Chloride [Moles/Vol] 107 mmol/L 98-107 [facility] Cholesterol [Mass/Vol] 124 mg/dL <200 [facility] Comment on above: <200 mg/dL Desirable 200-240 mg/dL Borderline >240 mg/dL High Risk Eosinophils/100 WBC (Bld) 3.0 % 0-5 [facility] Glucose [Mass/Vol] 101 mg/dL 74-106 [facility] Comment on above: Fasting Glucose resu lt from 100 to 125 mg/dL suggests IMPAIRED HOMEOSTASIS per A.D.A. criteria. Neutrophils (Bld) [#/Vol] 3.5 10*3/uL 2.0-7.7 [facility] Neutrophils/100 WBC (Bld) 61.8 % 47-70 [facility] Potassium [Moles/Vol] 3.7 mmol/L 3.5-5.1 [facility] Protein [Mass/Vol] 7.1 g/dL 6.4-8.2 [facility] Sodium [Moles/Vol] 137 mmol/L 136-145 [facility] Triglyceride [Mass/Vol] 132 mg/dL <199 [facility] Comment on above: The drugs N-Acetylcy steine and Metamizole may falsely depress this assay.Serum Triglycerides Reference Interval Normal <150 mg/dL Borderline high 150 - 199 mg/dL High 200 - 499 mg/dL Very High > or = 500 mg/dL WBC (Bld) [#/Vol] 5.7 10*3/uL 4.4-11.0 [facility] Blood erythrocytes count (nu mber/volume)Ordered By: Dr. Perry on 12-03-2022 RBC (Bld) [#/Vol] 4.50 10*6/uL 4.2-5.4 [facility] Blood hemoglobin measurement (mass/volume)Ordered By: Dr. Perry on 12-03-2022 Hemoglobin (Bld) [Mass/Vol] 12.1 g/dL 12.0-15.0 [facility] Blood lymphocytes/100 leukoc ytesOrdered By: Dr. Perry on 12-03-2022 Lymphocytes/100 WBC (Bld) 28.5 % 19-41 [facility] Blood monocytes/100 leukocyt esOrdered By: Dr. Perry on 12-03-2022 Monocytes/100 WBC (Bld) 5.8 % 0-10 [facility] Blood platelet mean volumeOr dered By: Dr. Perry on 12-03-2022 Platelet mean volume (Bld) [Entitic vol] 10.2 fL 6.2-12.0 [facility] Determination of erythrocyte mean corpuscular volume (MCV)Ordered By: Dr. Perry on 12-03-2022 MCV (RBC) [Entitic vol] 86.0 fL 81-99 [facility] Hematocrit Auto (Bld) [Volum e fraction]Ordered By: Dr. Perry on 12-03-2022 Hematocrit (Bld) [Volume fraction] 38.7 % 37-47 [facility] Laboratory - Chemistry and C hemistry - challengeOrdered By: Dr. Perry on 12-03-2022 ALP [Catalytic activity/Vol] 70 U/L 45-117 [facility] ALT [Catalytic activity/Vol] 24 U/L 13-56 [facility] CO2 [Moles/Vol] 25.0 mmol/L 21.0-32.0 [facility] Cobalamin (Vitamin B12) [Mass/Vol] 1344 pg/mL 211-911 [facility] Free T4 [Mass/Vol] 1.23 ng/dL 0.76-1.46 [facility] Globulin (S) [Mass/Vol] 3.5 g/dL 2.2-4.2 [facility] Urea nitrogen/Creatinine [Mass ratio] 25.5 mg/mg 10-20 [facility] Laboratory - Hematology and Cell countsOrdered By: Dr. Perry on 12-03-2022 Erythrocyte distribution width (RBC) [Entitic vol] 51.3 fL 35.1-43.9 [facility] Erythrocyte distribution width (RBC) [Ratio] 16.1 % 11.6-14.6 [facility] Immature granulocytes/100 WBC (Bld) 0.200 % 0.0-0.9 [facility] Comment on above: IG% - Immature Granu locytes (promyelocytes, myelocytes and metamyelocytes) > 1% indicates that a LEFT SHIFT is Present. MCH (RBC) [Entitic mass] 26.9 pg 27.0-32.0 [facility] Nucleated RBC/100 WBC (Bld) [Ratio] 0 % 0-5 [facility] MCHC Auto (RBC) [Mass/Vol]Or dered By: Dr. Perry on 12-03-2022 MCHC (RBC) [Mass/Vol] 31.3 g/dL 32-36 [facility] No Panel InformationOrdered By: Dr. Perry on 12-03-2022 Estimated GFR (MDRD) Amer 86 mL/min >60 [facility] Comment on above: GFR Calc Estimated GFR (MDRD) Non-Af Amer 71 mL/min >60 [facility] Comment on above: Non- GFR Calc Free Triiodothyronine (T3) pg/dL 1.9 pg/mL 2.18-3.98 [facility] Thyroid Stimulating Hormone (TSH) 5.10 uIU/mL 0.358-3.74 [facility] Vitamin D 25-Hydroxy 54.4 ng/mL [facility] Comment on above: Vitamin D 25(OH) Sta tus Range Deficiency <20 ng/mL (50nmol/L) Insufficiency 20 - 30 ng/mL (50 - 75 nmol/L) Sufficiency 30 - 100 ng/mL (75 - 250 nmol/L) Toxicity >100 ng/mL (>250 nmol/L) Platelets bldOrdered By: Dr. Perry on 12-03-2022 Platelets (Bld) [#/Vol] 244 10*3/uL 150-450 [facility] Serum or plasma albumin osiris urement (mass/volume)Ordered By: Dr. Perry on 12-03-2022 Albumin [Mass/Vol] 3.6 g/dL 3.2-5.0 [facility] Serum or plasma albumin/glob ulin mass ratioOrdered By: Dr. Perry on 12-03-2022 Albumin/Globulin [Mass ratio] 1.0 {ratio} 0.9-2.4 [facility] Serum or plasma calcium osiris urement (mass/volume)Ordered By: Dr. Perry on 12-03-2022 Calcium [Mass/Vol] 8.7 mg/dL 8.5-10.1 [facility] Serum or plasma cholesterol in HDL measurement (mass/volume)Ordered By: Dr. Perry on 12-03-2022 Cholesterol in HDL [Mass/Vol] 42 mg/dL >40 [facility] Comment on above: The drugs N-Acetylcy steine and Metamizole may falsely depress this assay. Reference Range HDL <40 mg/dL Low HDL Cholesterol HDL >or= 60 mg/dL High HDL Cholesterol Serum or plasma cholesterol in VLDL measurement (mass/volume)Ordered By: Dr. Perry on 12-03-2022 Cholesterol in VLDL [Mass/Vol] 26 mg/dL 5-40 [facility] Serum or plasma creatinine m easurement (mass/volume)Ordered By: Dr. Perry on 12-03-2022 Creatinine [Mass/Vol] 0.82 mg/dL 0.55-1.02 [facility] Comment on above: The validity of the calculated GFR & GFRAA in patients over 70 years has not been determined. Clinical correlation is essential. Serum or plasma low density lipoprotein (LDL) cholesterol measurement (mass/volume)Ordered By: Dr. Perry on 12-03-2022 Cholesterol in LDL [Mass/Vol] 56 mg/dL 0-130 [facility] Serum or plasma urea nitroge n measurement (mass/volume)Ordered By: Dr. Perry on 12-03-2022 Urea nitrogen [Mass/Vol] 21 mg/dL 7-18 [facility] Thin prep Papanicolaou smear with manual screeningOrdered By: Dr. Perry on 12-03-2022 Thin prep Papanicolaou smear with manual screening 23 U/L 15-37 [facility] Thin prep Papanicolaou smear with manual screening 5 5-15 [facility] No Panel Informationon 10-23 POC SARS CoV-2 Antigen Negative [facility] Basophil percentageOrdered B y: Dr. Perry on 07-12-2022 Basophil percentage < 0.9 mg/dL 0.55-1.02 [facility] No Panel InformationOrdered By: Dr. Perry on 07-12-2022 Bedside Estimated GFR (eGFR) > 60.0000 mL/min >60 [facility] Laboratory - Microbiology an d Antimicrobial susceptibilityon 07-07-2022 SARS-CoV-2 (COVID-19) RNA LÁZARO+probe Ql (Unsp spec) Not detected [facility] No Panel Informationon 07-07 Influenza Types A,B Rapid (Clinic) Not detected [facility] Absolute lymphocyte counton 03-07-2022 Lymphocytes Auto (Unsp spec) [#/Vol] 2.14 10*3/uL 0.83-4.51 [facility] Work Phone: Basophil percentageon 2021 Basophils/100 WBC (Bld) 0.9 % 0-1 [facility] Work Phone: [phone] Bilirubin [Mass/Vol] 0.60 mg/dL 0.20-1.00 [facility] Work Phone: Comment on above: For patients on eltr ombopag therapy, use of Dimension [place] TBIL is not recommended. Chloride [Moles/Vol] 108 mmol/L 98-107 [facility] Work Phone: Eosinophils/100 WBC (Bld) 2.6 % 0-5 [facility] Work Phone: [phone] Glucose [Mass/Vol] 92 mg/dL 74-106 [facility] Work Phone: [phone] Neutrophils (Bld) [#/Vol] 3.7 10*3/uL 2.0-7.7 [facility] Work Phone: [phone] Neutrophils/100 WBC (Bld) 57.3 % 47-70 [facility] Work Phone: [phone] Potassium [Moles/Vol] 4.3 mmol/L 3.5-5.1 [facility] Work Phone: [phone] Protein [Mass/Vol] 7.3 g/dL 6.4-8.2 [facility] Work Phone: [phone] Sodium [Moles/Vol] 137 mmol/L 136-145 [facility] Work Phone: [phone] WBC (Bld) [#/Vol] 6.5 10*3/uL 4.4-11.0 [facility] Work Phone: [phone] Blood erythrocytes count (nu mber/volume)on 03-07-2022 RBC (Bld) [#/Vol] 4.68 10*6/uL 4.2-5.4 [facility] Work Phone: [phone] Blood hemoglobin measurement (mass/volume)on 03-07-2022 Hemoglobin (Bld) [Mass/Vol] 13.6 g/dL 12.0-15.0 [facility] Work Phone: Blood lymphocytes/100 leukoc yteson 03-07-2022 Lymphocytes/100 WBC (Bld) 32.9 % 19-41 [facility] Work Phone: Blood monocytes/100 leukocyt eson 03-07-2022 Monocytes/100 WBC (Bld) 6.0 % 0-10 [facility] Work Phone: Blood platelet mean volumeon 03-07-2022 Platelet mean volume (Bld) [Entitic vol] 11.1 fL 6.2-12.0 [facility] Work Phone: Determination of erythrocyte mean corpuscular volume (MCV)on 03-07-2022 MCV (RBC) [Entitic vol] 89.1 fL 81-99 [facility] Work Phone: Hematocrit Auto (Bld) [Volum e fraction]on 03-07-2022 Hematocrit (Bld) [Volume fraction] 41.7 % 37-47 [facility] Work Phone: Laboratory - Chemistry and C hemistry - challengeon 03-07-2022 ALP [Catalytic activity/Vol] 74 U/L 45-117 [facility] Work Phone: ALT [Catalytic activity/Vol] 17 U/L 13-56 [facility] Work Phone: CO2 [Moles/Vol] 23.0 mmol/L 21.0-32.0 [facility] Work Phone: Globulin (S) [Mass/Vol] 3.7 g/dL 2.2-4.2 [facility] Work Phone: Urea nitrogen/Creatinine [Mass ratio] 15.7 mg/mg 10-20 [facility] Work Phone: Laboratory - Hematology and Cell countson 03-07-2022 Erythrocyte distribution width (RBC) [Entitic vol] 43.3 fL 35.1-43.9 [facility] Work Phone: Erythrocyte distribution width (RBC) [Ratio] 13.2 % 11.6-14.6 [facility] Work Phone: Immature granulocytes/100 WBC (Bld) 0.300 % 0.0-0.9 [facility] Work Phone: Comment on above: IG% - Immature Granu locytes (promyelocytes, myelocytes and metamyelocytes) > 1% indicates that a LEFT SHIFT is Present. MCH (RBC) [Entitic mass] 29.1 pg 27.0-32.0 [facility] Work Phone: Nucleated RBC/100 WBC (Bld) [Ratio] 0 % 0-5 [facility] Work Phone: MCHC Auto (RBC) [Mass/Vol]on 03-07-2022 MCHC (RBC) [Mass/Vol] 32.6 g/dL 32-36 [facility] Work Phone: No Panel Informationon 03-07 Estimated GFR (MDRD) Amer 63 mL/min >60 [facility] Work Phone: Comment on above: GFR Calc Estimated GFR (MDRD) Non-Af Amer 52 mL/min >60 [facility] Work Phone: Comment on above: Non- GFR Calc Thyroid Stimulating Hormone (TSH) 2.09 uIU/mL 0.358-3.74 [facility] Work Phone: Vitamin D 25-Hydroxy 37.8 ng/mL [facility] Work Phone: Comment on above: Vitamin D 25(OH) Sta tus Range Deficiency <20 ng/mL (50nmol/L) Insufficiency 20 - 30 ng/mL (50 - 75 nmol/L) Sufficiency 30 - 100 ng/mL (75 - 250 nmol/L) Toxicity >100 ng/mL (>250 nmol/L) Platelets bldon 03-07-2022 Platelets (Bld) [#/Vol] 220 10*3/uL 150-450 [facility] Work Phone: Serum or plasma albumin osiris urement (mass/volume)on 03-07-2022 Albumin [Mass/Vol] 3.6 g/dL 3.2-5.0 [facility] Work Phone: Serum or plasma albumin/glob ulin mass ratioon 03-07-2022 Albumin/Globulin [Mass ratio] 1.0 {ratio} 0.9-2.4 [facility] Work Phone: Serum or plasma calcium osiris urement (mass/volume)on 03-07-2022 Calcium [Mass/Vol] 8.7 mg/dL 8.5-10.1 [facility] Work Phone: Serum or plasma creatinine m easurement (mass/volume)on 03-07-2022 Creatinine [Mass/Vol] 1.08 mg/dL 0.55-1.02 [facility] Work Phone: Comment on above: The validity of the calculated GFR & GFRAA in patients over 70 years has not been determined. Clinical correlation is essential. Serum or plasma urea nitroge n measurement (mass/volume)on 03-07-2022 Urea nitrogen [Mass/Vol] 17 mg/dL 7-18 [facility] Work Phone: Thin prep Papanicolaou smear with manual screeningon 03-07-2022 Thin prep Papanicolaou smear with manual screening 15 U/L 15-37 [facility] Work Phone: Thin prep Papanicolaou smear with manual screening 6 5-15 [facility] Work Phone: No Panel Informationon 02-25 Homocysteine 11.6 umol/L 3.2-10.7 [facility] Work Phone: Serum or plasma methylmalona te measurement (moles/volume)on 02-25-2022 Methylmalonate [Moles/Vol] 214 nmol/L 0-378 [facility] Work Phone: Comment on above: Performed at: [address] [id number] Director: Leanna Muse MD, Phone: [phone] Absolute lymphocyte counton 02-15-2022 Lymphocytes Auto (Unsp spec) [#/Vol] 0.52 10*3/uL 0.83-4.51 [facility] Work Phone: [phone] Basophil percentageon 2021 Basophil percentage 0-5 SEEN /hpf 0-5 [facility] Work Phone: [phone] Basophils/100 WBC (Bld) 0.3 % 0-1 [facility] Work Phone: [phone] Chloride [Moles/Vol] 108 mmol/L 98-107 [facility] Work Phone: [phone] Eosinophils/100 WBC (Bld) 0.7 % 0-5 [facility] Work Phone: [phone] Glucose [Mass/Vol] 100 mg/dL 74-106 [facility] Work Phone: Comment on above: Fasting Glucose resu lt from 100 to 125 mg/dL suggests IMPAIRED HOMEOSTASIS per A.D.A. criteria. Neutrophils (Bld) [#/Vol] 4.9 10*3/uL 2.0-7.7 [facility] Work Phone: [phone] Neutrophils/100 WBC (Bld) 85.0 % 47-70 [facility] Work Phone: [phone] Potassium [Moles/Vol] 3.9 mmol/L 3.5-5.1 [facility] Work Phone: [phone] Sodium [Moles/Vol] 137 mmol/L 136-145 [facility] Work Phone: [phone] WBC (Bld) [#/Vol] 5.8 10*3/uL 4.4-11.0 [facility] Work Phone: Bilirubin Test strip Ql (U)o n 02-15-2022 Bilirubin Ql (U) Negative Negative [facility] Work Phone: Blood erythrocytes count (nu mber/volume)on 02-15-2022 RBC (Bld) [#/Vol] 4.99 10*6/uL 4.2-5.4 [facility] Work Phone: Blood hemoglobin measurement (mass/volume)on 02-15-2022 Hemoglobin (Bld) [Mass/Vol] 14.4 g/dL 12.0-15.0 [facility] Work Phone: Blood lymphocytes/100 leukoc yteson 02-15-2022 Lymphocytes/100 WBC (Bld) 8.9 % 19-41 [facility] Work Phone: Blood manual differential co mment interpretation (narrative result)on 02-15-2022 Manual differential comment Jd (Bld) [Interp] See comment [facility] Work Phone: Comment on above: LYMPHOPENIA NOTED Blood monocytes/100 leukocyt eson 02-15-2022 Monocytes/100 WBC (Bld) 4.8 % 0-10 [facility] Work Phone: Blood platelet adequacy dete ction by light microscopyon 02-15-2022 Platelets LM Ql (Bld) ADEQUATE ADEQ [facility] Work Phone: Blood platelet mean volumeon 02-15-2022 Platelet mean volume (Bld) [Entitic vol] 10.8 fL 6.2-12.0 [facility] Work Phone: Determination of erythrocyte mean corpuscular volume (MCV)on 02-15-2022 MCV (RBC) [Entitic vol] 88.2 fL 81-99 [facility] Work Phone: Hematocrit Auto (Bld) [Volum e fraction]on 02-15-2022 Hematocrit (Bld) [Volume fraction] 44.0 % 37-47 [facility] Work Phone: Ketones Test strip Ql (U)on 02-15-2022 Ketones Ql (U) Negative Negative [facility] Work Phone: Laboratory - Chemistry and C hemistry - challengeon 02-15-2022 CO2 [Moles/Vol] 22.0 mmol/L 21.0-32.0 [facility] Work Phone: Urea nitrogen/Creatinine [Mass ratio] 15.1 mg/mg 10-20 [facility] Work Phone: Laboratory - Hematology and Cell countson 02-15-2022 Erythrocyte distribution width (RBC) [Entitic vol] 41.2 fL 35.1-43.9 [facility] Work Phone: Erythrocyte distribution width (RBC) [Ratio] 12.7 % 11.6-14.6 [facility] Work Phone: Immature granulocytes/100 WBC (Bld) 0.300 % 0.0-0.9 [facility] Work Phone: Comment on above: IG% - Immature Granu locytes (promyelocytes, myelocytes and metamyelocytes) > 1% indicates that a LEFT SHIFT is Present. MCH (RBC) [Entitic mass] 28.9 pg 27.0-32.0 [facility] Work Phone: Nucleated RBC/100 WBC (Bld) [Ratio] 0 % 0-5 [facility] Work Phone: MCHC Auto (RBC) [Mass/Vol]on 02-15-2022 MCHC (RBC) [Mass/Vol] 32.7 g/dL 32-36 [facility] Work Phone: Mucus LM Ql (Urine sed)on Mucus Ql (Urine sed) 0 SEEN /hpf [facility] Work Phone: Nitrite Test strip Ql (U)on 02-15-2022 Nitrite Ql (U) Positive Negative [facility] Work Phone: No Panel Informationon 02-15 Estimated Creatinine Clearance Calc 40.33 ml/min [facility] Work Phone: Estimated GFR (MDRD) Amer 99 mL/min >60 [facility] Work Phone: Comment on above: GFR Calc Estimated GFR (MDRD) Non-Af Amer 82 mL/min >60 [facility] Work Phone: Comment on above: Non- GFR Calc Platelets bldon 02-15-2022 Platelets (Bld) [#/Vol] 169 10*3/uL 150-450 [facility] Work Phone: Protein Test strip Ql (U)on 02-15-2022 Protein Ql (U) Negative Negative [facility] Work Phone: RBC morphologyon 02-15-2022 RBC morphology finding Nom (Bld) NORM C+C NORMAL NORM C&C [facility] Work Phone: Serum or plasma calcium osiris urement (mass/volume)on 02-15-2022 Calcium [Mass/Vol] 8.1 mg/dL 8.5-10.1 [facility] Work Phone: Serum or plasma creatinine m easurement (mass/volume)on 02-15-2022 Creatinine [Mass/Vol] 0.73 mg/dL 0.55-1.02 [facility] Work Phone: Comment on above: The validity of the calculated GFR & GFRAA in patients over 70 years has not been determined. Clinical correlation is essential. Serum or plasma urea nitroge n measurement (mass/volume)on 02-15-2022 Urea nitrogen [Mass/Vol] 11 mg/dL 7-18 [facility] Work Phone: Squamous epithelial cells de tection in urine sediment by light microscopyon 02-15-2022 Epithelial cells.squamous LM Ql (Urine sed) 0 SEEN /hpf 5-10 [facility] Work Phone: Thin prep Papanicolaou smear with manual screeningon 02-15-2022 Thin prep Papanicolaou smear with manual screening 7 5-15 [facility] Work Phone: Urine blood detectionon - RBC Ql (U) 25 /ul Negative [facility] Work Phone: RBC Ql (U) 0 SEEN /hpf 0-5 [facility] Work Phone: Urine clarityon 02-15-2022 Clarity (U) Clear Clear [facility] Work Phone: Urine color determinationon 02-15-2022 Color (U) Yellow Yellow [facility] Work Phone: Urine glucose detectionon Glucose Ql (U) Normal mg/dl Normal [facility] Work Phone: Urine leukocyte esterase det ection by dipstickon 02-15-2022 Leukocyte esterase Test strip Ql (U) 25 /ul Negative [facility] Work Phone: Urine pHon 02-15-2022 pH (U) 6.0 [pH] 5.0 - 8.0 [facility] Work Phone: Urine sediment bacteria coun t by microscopy (number/high power field)on 02-15-2022 Bacteria LM.HPF (Urine sed) [#/Area] 2 /[HPF] None Seen [facility] Work Phone: Urine specific gravity measu rementon 02-15-2022 Specific gravity (U) [Rel density] 1.010 1.002-1.030 [facility] Work Phone: Urobilinogen Auto test strip Ql (U)on 02-15-2022 Urobilinogen Ql (U) Normal mg/dl Normal [facility] Work Phone: Iron measurement (mass/mass) on 02-14-2022 Iron (Unsp spec) [Mass/Mass] 73 ug/dL 50-170 [facility] Work Phone: Laboratory - Chemistry and C hemistry - challengeon 02-14-2022 Cobalamin (Vitamin B12) [Mass/Vol] 318 pg/mL 211-911 [facility] Work Phone: Absolute lymphocyte counton 11-23-2021 Lymphocytes Auto (Unsp spec) [#/Vol] 1.90 10*3/uL 0.83-4.51 [facility] Work Phone: Basophil percentageon 2021 Basophils/100 WBC (Bld) 0.3 % 0-1 [facility] Work Phone: Bilirubin [Mass/Vol] 1.70 mg/dL 0.20-1.00 [facility] Work Phone: Comment on above: For patients on eltr ombopag therapy, use of Dimension [place] TBIL is not recommended. Chloride [Moles/Vol] 105 mmol/L 98-107 [facility] Work Phone: [phone] Eosinophils/100 WBC (Bld) 0.3 % 0-5 [facility] Work Phone: Glucose [Mass/Vol] 101 mg/dL 74-106 [facility] Work Phone: Comment on above: Fasting Glucose resu lt from 100 to 125 mg/dL suggests IMPAIRED HOMEOSTASIS per A.D.A. criteria. Neutrophils (Bld) [#/Vol] 10.2 10*3/uL 2.0-7.7 [facility] Work Phone: Neutrophils/100 WBC (Bld) 78.9 % 47-70 [facility] Work Phone: Potassium [Moles/Vol] 3.6 mmol/L 3.5-5.1 [facility] Work Phone: Protein [Mass/Vol] 7.5 g/dL 6.4-8.2 [facility] Work Phone: Sodium [Moles/Vol] 135 mmol/L 136-145 [facility] Work Phone: WBC (Bld) [#/Vol] 12.9 10*3/uL 4.4-11.0 [facility] Work Phone: Blood erythrocytes count (nu mber/volume)on 11-23-2021 RBC (Bld) [#/Vol] 4.29 10*6/uL 4.2-5.4 [facility] Work Phone: Blood hemoglobin measurement (mass/volume)on 11-23-2021 Hemoglobin (Bld) [Mass/Vol] 13.0 g/dL 12.0-15.0 [facility] Work Phone: Blood lymphocytes/100 leukoc yteson 11-23-2021 Lymphocytes/100 WBC (Bld) 14.7 % 19-41 [facility] Work Phone: Blood monocytes/100 leukocyt eson 11-23-2021 Monocytes/100 WBC (Bld) 5.3 % 0-10 [facility] Work Phone: Blood platelet mean volumeon 11-23-2021 Platelet mean volume (Bld) [Entitic vol] 11.3 fL 6.2-12.0 [facility] Work Phone: Determination of erythrocyte mean corpuscular volume (MCV)on 11-23-2021 MCV (RBC) [Entitic vol] 93.2 fL 81-99 [facility] Work Phone: Hematocrit Auto (Bld) [Volum e fraction]on 11-23-2021 Hematocrit (Bld) [Volume fraction] 40.0 % 37-47 [facility] Work Phone: Laboratory - Chemistry and C hemistry - challengeon 11-23-2021 ALP [Catalytic activity/Vol] 139 U/L 45-117 [facility] Work Phone: ALT [Catalytic activity/Vol] 15 U/L 13-56 [facility] Work Phone: CO2 [Moles/Vol] 21.0 mmol/L 21.0-32.0 [facility] Work Phone: Globulin (S) [Mass/Vol] 4.5 g/dL 2.2-4.2 [facility] Work Phone: Urea nitrogen/Creatinine [Mass ratio] 20.4 mg/mg 10-20 [facility] Work Phone: Laboratory - Hematology and Cell countson 11-23-2021 Erythrocyte distribution width (RBC) [Entitic vol] 45.5 fL 35.1-43.9 [facility] Work Phone: Erythrocyte distribution width (RBC) [Ratio] 13.3 % 11.6-14.6 [facility] Work Phone: Immature granulocytes/100 WBC (Bld) 0.500 % 0.0-0.9 [facility] Work Phone: Comment on above: IG% - Immature Granu locytes (promyelocytes, myelocytes and metamyelocytes) > 1% indicates that a LEFT SHIFT is Present. MCH (RBC) [Entitic mass] 30.3 pg 27.0-32.0 [facility] Work Phone: Nucleated RBC/100 WBC (Bld) [Ratio] 0 % 0-5 [facility] Work Phone: MCHC Auto (RBC) [Mass/Vol]on 11-23-2021 MCHC (RBC) [Mass/Vol] 32.5 g/dL 32-36 [facility] Work Phone: No Panel Informationon 11-23 Estimated GFR (MDRD) Amer 80 mL/min >60 [facility] Work Phone: Comment on above: GFR Calc Estimated GFR (MDRD) Non-Af Amer 66 mL/min >60 [facility] Work Phone: Comment on above: Non- GFR Calc Thyroid Stimulating Hormone (TSH) 2.66 uIU/mL 0.358-3.74 [facility] Work Phone: Vitamin D 25-Hydroxy 46.1 ng/mL [facility] Work Phone: Comment on above: Vitamin D 25(OH) Sta tus Range Deficiency <20 ng/mL (50nmol/L) Insufficiency 20 - 30 ng/mL (50 - 75 nmol/L) Sufficiency 30 - 100 ng/mL (75 - 250 nmol/L) Toxicity >100 ng/mL (>250 nmol/L) Platelets bldon 11-23-2021 Platelets (Bld) [#/Vol] 209 10*3/uL 150-450 [facility] Work Phone: Serum or plasma albumin osiris urement (mass/volume)on 11-23-2021 Albumin [Mass/Vol] 3.0 g/dL 3.2-5.0 [facility] Work Phone: Serum or plasma albumin/glob ulin mass ratioon 11-23-2021 Albumin/Globulin [Mass ratio] 0.7 {ratio} 0.9-2.4 [facility] Work Phone: Serum or plasma calcium osiris urement (mass/volume)on 11-23-2021 Calcium [Mass/Vol] 8.9 mg/dL 8.5-10.1 [facility] Work Phone: Serum or plasma creatinine m easurement (mass/volume)on 11-23-2021 Creatinine [Mass/Vol] 0.88 mg/dL 0.55-1.02 [facility] Work Phone: Comment on above: The validity of the calculated GFR & GFRAA in patients over 70 years has not been determined. Clinical correlation is essential. Serum or plasma urea nitroge n measurement (mass/volume)on 11-23-2021 Urea nitrogen [Mass/Vol] 18 mg/dL 7-18 [facility] Work Phone: Thin prep Papanicolaou smear with manual screeningon 11-23-2021 Thin prep Papanicolaou smear with manual screening 20 U/L 15-37 [facility] Work Phone: Thin prep Papanicolaou smear with manual screening 9 5-15 [facility] Work Phone: Absolute lymphocyte counton 10-06-2021 Lymphocytes Auto (Unsp spec) [#/Vol] 1.63 10*3/uL 0.83-4.51 [facility] Work Phone: Basophil percentageon 2021 Basophils/100 WBC (Bld) 0.7 % 0-1 [facility] Work Phone: Chloride [Moles/Vol] 107 mmol/L 98-107 [facility] Work Phone: Eosinophils/100 WBC (Bld) 1.1 % 0-5 [facility] Work Phone: Glucose [Mass/Vol] 104 mg/dL 74-106 [facility] Work Phone: Comment on above: Fasting Glucose resu lt from 100 to 125 mg/dL suggests IMPAIRED HOMEOSTASIS per A.D.A. criteria. Neutrophils (Bld) [#/Vol] 5.2 10*3/uL 2.0-7.7 [facility] Work Phone: Neutrophils/100 WBC (Bld) 69.3 % 47-70 [facility] Work Phone: Potassium [Moles/Vol] 3.8 mmol/L 3.5-5.1 [facility] Work Phone: Sodium [Moles/Vol] 137 mmol/L 136-145 [facility] Work Phone: WBC (Bld) [#/Vol] 7.5 10*3/uL 4.4-11.0 [facility] Work Phone: Blood erythrocytes count (nu mber/volume)on 10-06-2021 RBC (Bld) [#/Vol] 4.03 10*6/uL 4.2-5.4 [facility] Work Phone: Blood hemoglobin measurement (mass/volume)on 10-06-2021 Hemoglobin (Bld) [Mass/Vol] 12.6 g/dL 12.0-15.0 [facility] Work Phone: Blood lymphocytes/100 leukoc yteson 10-06-2021 Lymphocytes/100 WBC (Bld) 21.7 % 19-41 [facility] Work Phone: [phone] Blood monocytes/100 leukocyt eson 10-06-2021 Monocytes/100 WBC (Bld) 6.8 % 0-10 [facility] Work Phone: Blood platelet mean volumeon 10-06-2021 Platelet mean volume (Bld) [Entitic vol] 10.1 fL 6.2-12.0 [facility] Work Phone: Determination of erythrocyte mean corpuscular volume (MCV)on 10-06-2021 MCV (RBC) [Entitic vol] 91.6 fL 81-99 [facility] Work Phone: Hematocrit Auto (Bld) [Volum e fraction]on 10-06-2021 Hematocrit (Bld) [Volume fraction] 36.9 % 37-47 [facility] Work Phone: Laboratory - Chemistry and C hemistry - challengeon 10-06-2021 CO2 [Moles/Vol] 25.0 mmol/L 21.0-32.0 [facility] Work Phone: Urea nitrogen/Creatinine [Mass ratio] 32.1 mg/mg 10-20 [facility] Work Phone: Laboratory - Hematology and Cell countson 10-06-2021 Erythrocyte distribution width (RBC) [Entitic vol] 45.9 fL 35.1-43.9 [facility] Work Phone: Erythrocyte distribution width (RBC) [Ratio] 13.7 % 11.6-14.6 [facility] Work Phone: Immature granulocytes/100 WBC (Bld) 0.400 % 0.0-0.9 [facility] Work Phone: Comment on above: IG% - Immature Granu locytes (promyelocytes, myelocytes and metamyelocytes) > 1% indicates that a LEFT SHIFT is Present. MCH (RBC) [Entitic mass] 31.3 pg 27.0-32.0 [facility] Work Phone: Nucleated RBC/100 WBC (Bld) [Ratio] 0 % 0-5 [facility] Work Phone: MCHC Auto (RBC) [Mass/Vol]on 10-06-2021 MCHC (RBC) [Mass/Vol] 34.1 g/dL 32-36 [facility] Work Phone: No Panel Informationon 10-06 Estimated Creatinine Clearance Calc 40.18 ml/min [facility] Work Phone: Estimated GFR (MDRD) Amer 126 mL/min >60 [facility] Work Phone: Comment on above: GFR Calc Estimated GFR (MDRD) Non-Af Amer 104 mL/min >60 [facility] Work Phone: Comment on above: Non- GFR Calc Platelets bldon 10-06-2021 Platelets (Bld) [#/Vol] 207 10*3/uL 150-450 [facility] Work Phone: Serum or plasma calcium osiris urement (mass/volume)on 10-06-2021 Calcium [Mass/Vol] 8.3 mg/dL 8.5-10.1 [facility] Work Phone: Serum or plasma creatinine m easurement (mass/volume)on 10-06-2021 Creatinine [Mass/Vol] 0.59 mg/dL 0.55-1.02 [facility] Work Phone: Comment on above: The validity of the calculated GFR & GFRAA in patients over 70 years has not been determined. Clinical correlation is essential. Serum or plasma urea nitroge n measurement (mass/volume)on 10-06-2021 Urea nitrogen [Mass/Vol] 19 mg/dL 7-18 [facility] Work Phone: Thin prep Papanicolaou smear with manual screeningon 10-06-2021 Thin prep Papanicolaou smear with manual screening 5 5-15 [facility] Work Phone: Basophil percentageon 2021 Basophil percentage 0 SEEN /hpf [facility] Work Phone: Bilirubin [Mass/Vol] 0.70 mg/dL 0.20-1.00 [facility] Work Phone: Comment on above: For patients on eltr ombopag therapy, use of Dimension [place] TBIL is not recommended. Protein [Mass/Vol] 6.9 g/dL 6.4-8.2 [facility] Work Phone: Bilirubin Test strip Ql (U)o n 10-05-2021 Bilirubin Ql (U) Negative Negative [facility] Work Phone: Ketones Test strip Ql (U)on 10-05-2021 Ketones Ql (U) Negative Negative [facility] Work Phone: Laboratory - Chemistry and C hemistry - challengeon 10-05-2021 ALP [Catalytic activity/Vol] 139 U/L 45-117 [facility] Work Phone: ALT [Catalytic activity/Vol] 16 U/L 13-56 [facility] Work Phone: Globulin (S) [Mass/Vol] 3.9 g/dL 2.2-4.2 [facility] Work Phone: Mucus LM Ql (Urine sed)on Mucus Ql (Urine sed) 0 SEEN /hpf [facility] Work Phone: Nitrite Test strip Ql (U)on 10-05-2021 Nitrite Ql (U) Negative Negative [facility] Work Phone: No Panel Informationon 10-05 Troponin I High Sensitivity 8 pg/mL 3.0-54.0 [facility] Work Phone: Comment on above: Please Note: New [place] t Units and Gender Specific Reference Ranges. For more information see Policy Stat Procedure [place] High Sensitivity Troponin (TNIH) and attachments. SARS-CoV-2 Antigen (Rapid) [facility] Work Phone: Protein Test strip Ql (U)on 10-05-2021 Protein Ql (U) 30 mg/dl Negative [facility] Work Phone: Serum or plasma albumin osiris urement (mass/volume)on 10-05-2021 Albumin [Mass/Vol] 3.0 g/dL 3.2-5.0 [facility] Work Phone: Serum or plasma albumin/glob ulin mass ratioon 10-05-2021 Albumin/Globulin [Mass ratio] 0.8 {ratio} 0.9-2.4 [facility] Work Phone: Squamous epithelial cells de tection in urine sediment by light microscopyon 10-05-2021 Epithelial cells.squamous LM Ql (Urine sed) 0-5 SEEN /hpf [facility] Work Phone: Thin prep Papanicolaou smear with manual screeningon 10-05-2021 Thin prep Papanicolaou smear with manual screening 12 U/L 15-37 [facility] Work Phone: Urine blood detectionon 09-18 RBC Ql (U) Negative Negative [facility] Work Phone: RBC Ql (U) 0 SEEN /hpf [facility] Work Phone: Urine clarityon 10-05-2021 Clarity (U) Clear Clear [facility] Work Phone: Urine color determinationon 10-05-2021 Color (U) Yellow Yellow [facility] Work Phone: Urine glucose detectionon Glucose Ql (U) Normal mg/dl Normal [facility] Work Phone: Urine leukocyte esterase det ection by dipstickon 10-05-2021 Leukocyte esterase Test strip Ql (U) Negative Negative [facility] Work Phone: Urine pHon 10-05-2021 pH (U) 6.0 [pH] [facility] Work Phone: Urine sediment bacteria coun t by microscopy (number/high power field)on 10-05-2021 Bacteria LM.HPF (Urine sed) [#/Area] 0 /[HPF] None Seen [facility] Work Phone: Urine specific gravity measu rementon 10-05-2021 Specific gravity (U) [Rel density] 1.020 [facility] Work Phone: Urobilinogen Auto test strip Ql (U)on 10-05-2021 Urobilinogen Ql (U) Normal mg/dl Normal [facility] Work Phone: Absolute lymphocyte counton 10-03-2021 Lymphocytes Auto (Unsp spec) [#/Vol] 1.64 10*3/uL 0.83-4.51 [facility] Work Phone: Basophil percentageon 2021 Basophils/100 WBC (Bld) 0.6 % 0-1 [facility] Work Phone: Chloride [Moles/Vol] 111 mmol/L 98-107 [facility] Work Phone: Eosinophils/100 WBC (Bld) 1.5 % 0-5 [facility] Work Phone: Glucose [Mass/Vol] 99 mg/dL 74-106 [facility] Work Phone: Neutrophils (Bld) [#/Vol] 4.5 10*3/uL 2.0-7.7 [facility] Work Phone: Neutrophils/100 WBC (Bld) 66.6 % 47-70 [facility] Work Phone: Potassium [Moles/Vol] 4.0 mmol/L 3.5-5.1 [facility] Work Phone: Sodium [Moles/Vol] 139 mmol/L 136-145 [facility] Work Phone: WBC (Bld) [#/Vol] 6.7 10*3/uL 4.4-11.0 [facility] Work Phone: Blood erythrocytes count (nu mber/volume)on 10-03-2021 RBC (Bld) [#/Vol] 4.12 10*6/uL 4.2-5.4 [facility] Work Phone: [phone] Blood hemoglobin measurement (mass/volume)on 10-03-2021 Hemoglobin (Bld) [Mass/Vol] 12.5 g/dL 12.0-15.0 [facility] Work Phone: Blood lymphocytes/100 leukoc yteson 10-03-2021 Lymphocytes/100 WBC (Bld) 24.4 % 19-41 [facility] Work Phone: [phone] Blood monocytes/100 leukocyt eson 10-03-2021 Monocytes/100 WBC (Bld) 6.5 % 0-10 [facility] Work Phone: Blood platelet mean volumeon 10-03-2021 Platelet mean volume (Bld) [Entitic vol] 9.7 fL 6.2-12.0 [facility] Work Phone: Determination of erythrocyte mean corpuscular volume (MCV)on 10-03-2021 MCV (RBC) [Entitic vol] 93.0 fL 81-99 [facility] Work Phone: Hematocrit Auto (Bld) [Volum e fraction]on 10-03-2021 Hematocrit (Bld) [Volume fraction] 38.3 % 37-47 [facility] Work Phone: Laboratory - Chemistry and C hemistry - challengeon 10-03-2021 CO2 [Moles/Vol] 26.0 mmol/L 21.0-32.0 [facility] Work Phone: Urea nitrogen/Creatinine [Mass ratio] 26.5 mg/mg 10-20 [facility] Work Phone: Laboratory - Hematology and Cell countson 10-03-2021 Erythrocyte distribution width (RBC) [Entitic vol] 46.9 fL 35.1-43.9 [facility] Work Phone: Erythrocyte distribution width (RBC) [Ratio] 13.7 % 11.6-14.6 [facility] Work Phone: Immature granulocytes/100 WBC (Bld) 0.400 % 0.0-0.9 [facility] Work Phone: [phone] Comment on above: IG% - Immature Granu locytes (promyelocytes, myelocytes and metamyelocytes) > 1% indicates that a LEFT SHIFT is Present. MCH (RBC) [Entitic mass] 30.3 pg 27.0-32.0 [facility] Work Phone: Nucleated RBC/100 WBC (Bld) [Ratio] 0 % 0-5 [facility] Work Phone: MCHC Auto (RBC) [Mass/Vol]on 10-03-2021 MCHC (RBC) [Mass/Vol] 32.6 g/dL 32-36 [facility] Work Phone: No Panel Informationon 10-03 Estimated Creatinine Clearance Calc 41.32 ml/min [facility] Work Phone: Estimated GFR (MDRD) Amer 107 mL/min >60 [facility] Work Phone: Comment on above: GFR Calc Estimated GFR (MDRD) Non-Af Amer 89 mL/min >60 [facility] Work Phone: Comment on above: Non- GFR Calc Platelets bldon 10-03-2021 Platelets (Bld) [#/Vol] 197 10*3/uL 150-450 [facility] Work Phone: Serum or plasma calcium osiris urement (mass/volume)on 10-03-2021 Calcium [Mass/Vol] 8.4 mg/dL 8.5-10.1 [facility] Work Phone: Serum or plasma creatinine m easurement (mass/volume)on 10-03-2021 Creatinine [Mass/Vol] 0.68 mg/dL 0.55-1.02 [facility] Work Phone: Comment on above: The validity of the calculated GFR & GFRAA in patients over 70 years has not been determined. Clinical correlation is essential. Serum or plasma urea nitroge n measurement (mass/volume)on 10-03-2021 Urea nitrogen [Mass/Vol] 18 mg/dL 7-18 [facility] Work Phone: Thin prep Papanicolaou smear with manual screeningon 10-03-2021 Thin prep Papanicolaou smear with manual screening 2 5-15 [facility] Work Phone: Basophil percentageon 2021 Bilirubin [Mass/Vol] 0.40 mg/dL 0.20-1.00 [facility] Work Phone: Comment on above: For patients on eltr ombopag therapy, use of Dimension [place] TBIL is not recommended. Protein [Mass/Vol] 5.9 g/dL 6.4-8.2 [facility] Work Phone: Laboratory - Chemistry and C hemistry - challengeon 09-21-2021 ALP [Catalytic activity/Vol] 112 U/L 45-117 [facility] Work Phone: ALT [Catalytic activity/Vol] 18 U/L 13-56 [facility] Work Phone: Globulin (S) [Mass/Vol] 3.3 g/dL 2.2-4.2 [facility] Work Phone: Serum or plasma albumin osiris urement (mass/volume)on 09-21-2021 Albumin [Mass/Vol] 2.6 g/dL 3.2-5.0 [facility] Work Phone: Serum or plasma albumin/glob ulin mass ratioon 09-21-2021 Albumin/Globulin [Mass ratio] 0.8 {ratio} 0.9-2.4 [facility] Work Phone: Thin prep Papanicolaou smear with manual screeningon 09-21-2021 Thin prep Papanicolaou smear with manual screening 14 U/L 15-37 [facility] Work Phone: Direct bilirubinon 2 Bilirubin.direct [Mass/Vol] 0.13 mg/dL 0.00-0.30 [facility] Work Phone: No Panel Informationon 09-19 SARS-CoV-2 Antigen (Rapid) SARS-CoV-2 (COVID 19) [facility] Work Phone: Basophil percentageon 2021 Basophil percentage 0 SEEN /hpf [facility] Work Phone: Bilirubin Test strip Ql (U)o n 09-18-2021 Bilirubin Ql (U) Negative Negative [facility] Work Phone: Culture, urineon 09-18-2021 Bacteria identified Cx Nom (U) Lactobacillus gasseri [facility] Work Phone: Ketones Test strip Ql (U)on 09-18-2021 Ketones Ql (U) 5 mg/dl Negative [facility] Work Phone: Mucus LM Ql (Urine sed)on Mucus Ql (Urine sed) 0 SEEN /hpf [facility] Work Phone: Nitrite Test strip Ql (U)on 09-18-2021 Nitrite Ql (U) Negative Negative [facility] Work Phone: Protein Test strip Ql (U)on 09-18-2021 Protein Ql (U) 30 mg/dl Negative [facility] Work Phone: Squamous epithelial cells de tection in urine sediment by light microscopyon 09-18-2021 Epithelial cells.squamous LM Ql (Urine sed) 0 SEEN /hpf [facility] Work Phone: Urine blood detectionon - RBC Ql (U) 10 /ul Negative [facility] Work Phone: RBC Ql (U) 0 SEEN /hpf [facility] Work Phone: Urine clarityon 09-18-2021 Clarity (U) Clear Clear [facility] Work Phone: Urine color determinationon 09-18-2021 Color (U) Yellow Yellow [facility] Work Phone: Urine glucose detectionon Glucose Ql (U) Normal mg/dl Normal [facility] Work Phone: Urine leukocyte esterase det ection by dipstickon 09-18-2021 Leukocyte esterase Test strip Ql (U) Negative Negative [facility] Work Phone: Urine pHon 09-18-2021 pH (U) 5.0 [pH] [facility] Work Phone: [phone] Urine sediment bacteria coun t by microscopy (number/high power field)on 09-18-2021 Bacteria LM.HPF (Urine sed) [#/Area] 1 /[HPF] None Seen [facility] Work Phone: Urine specific gravity measu rementon 09-18-2021 Specific gravity (U) [Rel density] 1.020 [facility] Work Phone: Urobilinogen Auto test strip Ql (U)on 09-18-2021 Urobilinogen Ql (U) Normal mg/dl Normal [facility] Work Phone: Absolute lymphocyte counton 09-04-2021 Lymphocytes Auto (Unsp spec) [#/Vol] 1.36 10*3/uL 0.83-4.51 [facility] Work Phone: Basophil percentageon 2021 Basophils/100 WBC (Bld) 0.2 % 0-1 [facility] Work Phone: Chloride [Moles/Vol] 105 mmol/L 98-107 [facility] Work Phone: [phone] Eosinophils/100 WBC (Bld) 0.3 % 0-5 [facility] Work Phone: Glucose [Mass/Vol] 108 mg/dL 74-106 [facility] Work Phone: [phone] Comment on above: Fasting Glucose resu lt from 100 to 125 mg/dL suggests IMPAIRED HOMEOSTASIS per A.D.A. criteria. Neutrophils (Bld) [#/Vol] 7.0 10*3/uL 2.0-7.7 [facility] Work Phone: [phone] Neutrophils/100 WBC (Bld) 78.7 % 47-70 [facility] Work Phone: [phone] Potassium [Moles/Vol] 3.7 mmol/L 3.5-5.1 [facility] Work Phone: Sodium [Moles/Vol] 137 mmol/L 136-145 [facility] Work Phone: WBC (Bld) [#/Vol] 8.9 10*3/uL 4.4-11.0 [facility] Work Phone: Blood erythrocytes count (nu mber/volume)on 09-04-2021 RBC (Bld) [#/Vol] 4.17 10*6/uL 4.2-5.4 [facility]: Blood hemoglobin measurement (mass/volume)on 09-04-2021 Hemoglobin (Bld) [Mass/Vol] 12.8 g/dL 12.0-15.0 [facility] Work Phone: Blood lymphocytes/100 leukoc yteson 09-04-2021 Lymphocytes/100 WBC (Bld) 15.2 % 19-41 [facility] Work Phone: Blood monocytes/100 leukocyt eson 09-04-2021 Monocytes/100 WBC (Bld) 5.3 % 0-10 [facility] Work Phone: Blood platelet mean volumeon 09-04-2021 Platelet mean volume (Bld) [Entitic vol] 9.9 fL 6.2-12.0 [facility] Work Phone: Determination of erythrocyte mean corpuscular volume (MCV)on 09-04-2021 MCV (RBC) [Entitic vol] 90.9 fL 81-99 [facility] Work Phone: Hematocrit Auto (Bld) [Volum e fraction]on 09-04-2021 Hematocrit (Bld) [Volume fraction] 37.9 % 37-47 [facility] Work Phone: Laboratory - Chemistry and C hemistry - challengeon 09-04-2021 CO2 [Moles/Vol] 26.0 mmol/L 21.0-32.0 [facility] Work Phone: Urea nitrogen/Creatinine [Mass ratio] 33.7 mg/mg 10-20 [facility] Work Phone: Laboratory - Hematology and Cell countson 09-04-2021 Erythrocyte distribution width (RBC) [Entitic vol] 42.4 fL 35.1-43.9 [facility] Work Phone: Erythrocyte distribution width (RBC) [Ratio] 12.8 % 11.6-14.6 [facility] Work Phone: Immature granulocytes/100 WBC (Bld) 0.300 % 0.0-0.9 [facility] Work Phone: Comment on above: IG% - Immature Granu locytes (promyelocytes, myelocytes and metamyelocytes) > 1% indicates that a LEFT SHIFT is Present. MCH (RBC) [Entitic mass] 30.7 pg 27.0-32.0 [facility] Work Phone: Nucleated RBC/100 WBC (Bld) [Ratio] 0 % 0-5 [facility] Work Phone: MCHC Auto (RBC) [Mass/Vol]on 09-04-2021 MCHC (RBC) [Mass/Vol] 33.8 g/dL 32-36 [facility] Work Phone: No Panel Informationon 09-04 Estimated Creatinine Clearance Calc 44.29 ml/min [facility] Work Phone: Estimated GFR (MDRD) Amer 126 mL/min >60 [facility] Work Phone: Comment on above: GFR Calc Estimated GFR (MDRD) Non-Af Amer 104 mL/min >60 [facility] Work Phone: Comment on above: Non- GFR Calc Platelets bldon 09-04-2021 Platelets (Bld) [#/Vol] 181 10*3/uL 150-450 [facility] Work Phone: Serum or plasma calcium osiris urement (mass/volume)on 09-04-2021 Calcium [Mass/Vol] 8.1 mg/dL 8.5-10.1 [facility] Work Phone: Serum or plasma creatinine m easurement (mass/volume)on 09-04-2021 Creatinine [Mass/Vol] 0.59 mg/dL 0.55-1.02 [facility] Work Phone: Comment on above: The validity of the calculated GFR & GFRAA in patients over 70 years has not been determined. Clinical correlation is essential. Serum or plasma urea nitroge n measurement (mass/volume)on 09-04-2021 Urea nitrogen [Mass/Vol] 20 mg/dL 7-18 [facility] Work Phone: Thin prep Papanicolaou smear with manual screeningon 09-04-2021 Thin prep Papanicolaou smear with manual screening 6 5-15 [facility] Work Phone: Laboratory - Chemistry and C hemistry - challengeon 09-03-2021 Magnesium [Mass/Vol] 2.0 mg/dL 1.6-2.6 [facility] Work Phone: No Panel Informationon 09-03 SARS-CoV-2 Antigen (Rapid) [facility] Work Phone: Bilirubin Test strip Ql (U)o n 09-02-2021 Bilirubin Ql (U) Negative Negative [facility] Work Phone: Culture, urineon 09-02-2021 Bacteria identified Cx Nom (U) Mixed Gram Pos & Gram Neg Org [facility] Work Phone: INR in Blood by Coagulation assayon 09-02-2021 INR Coag (Bld) [Relative time] 1.1 {INR} [facility] Work Phone: Ketones Test strip Ql (U)on 09-02-2021 Ketones Ql (U) Negative Negative [facility] Work Phone: Laboratory - Coagulationon 0 09-02-2021 aPTT Coag (Bld) [Time] 25.9 s 24.1-36.2 [facility] Work Phone: PT Coag (PPP) [Time] 14.0 s 11.7-14.9 [facility] Work Phone: Nitrite Test strip Ql (U)on 09-02-2021 Nitrite Ql (U) Negative Negative [facility] Work Phone: Protein Test strip Ql (U)on 09-02-2021 Protein Ql (U) 100 mg/dl Negative [facility] Work Phone: Urine blood detectionon 08-18 RBC Ql (U) 150 /ul Negative [facility] Work Phone: Urine clarityon 09-02-2021 Clarity (U) Turbid Clear [facility] Work Phone: Urine color determinationon 09-02-2021 Color (U) Yellow Yellow [facility] Work Phone: Urine glucose detectionon Glucose Ql (U) Normal mg/dl Normal [facility] Work Phone: Urine leukocyte esterase det ection by dipstickon 09-02-2021 Leukocyte esterase Test strip Ql (U) 500 /ul Negative [facility] Work Phone: Urine pHon 09-02-2021 pH (U) 5.0 [pH] [facility] Work Phone: Urine specific gravity measu rementon 09-02-2021 Specific gravity (U) [Rel density] 1.025 [facility] Work Phone: Urobilinogen Auto test strip Ql (U)on 09-02-2021 Urobilinogen Ql (U) Normal mg/dl Normal [facility] Work Phone: Culture, urine Bacteria identified Cx Nom (U) Presumptive E. coli [facility] Work Phone: VISUAL FIELD 24-2 OU (BOTH E YES) [facility] Vital Signs Date Time Vital Sign Value Performing Clinician Facility 05-03-2025 15:54-0400 Body temperature 98.2 [degF] Dr. Chema Perry MD Work Phone: [facility] 05-03-2025 15:54-0400 Diastolic blood pressure 79 mm[Hg] Dr. Chema Perry MD Work Phone: [facility] 05-03-2025 15:54-0400 Heart rate 67 /min Dr. Chema Perry MD Work Phone: [facility] 05-03-2025 15:54-0400 Respiratory rate 89 /min Dr. Chema Perry MD Work Phone: [facility] 05-03-2025 15:54-0400 SaO2% (BldA) [Mass fraction] 93 % Dr. Chema Perry MD Work Phone: [facility] 05-03-2025 15:54-0400 Systolic blood pressure 140 mm[Hg] Dr. Chema Perry MD Work Phone: [facility] 05-03-2025 15:10-0400 Body mass index (BMI) [Ratio] 25 kg/m2 Dr. Chema Perry MD Work Phone: [facility] 05-03-2025 15:10-0400 Body weight 48.[address] Chema Perry MD Work Phone: [facility] 05-03-2025 15:07-0400 Body height 139.[address] Chema Perry MD Work Phone: [facility] 05-02-2025 17:09-0400 Body mass index (BMI) [Ratio] 23.57 kg/m2 Nahum Hernandez MD Work Phone: [facility] 05-02-2025 17:09-0400 Body temperature 98.4 [degF] Nahum Hernandez MD Work Phone: [facility] 05-02-2025 17:09-0400 Body weight 46 kg Nahum Hernandez MD Work Phone: [facility] 05-02-2025 17:09-0400 Diastolic blood pressure 66 mm[Hg] Nahum Hernandez MD Work Phone: [facility] 05-02-2025 17:09-0400 Heart rate 75 /min Nahum Hernandez MD Work Phone: [facility] 05-02-2025 17:09-0400 Respiratory rate 21 /min Nahum Hernandez MD Work Phone: [facility] 05-02-2025 17:09-0400 SaO2% (BldA) [Mass fraction] 89 % Nahum Hernandez MD Work Phone: [facility] 05-02-2025 17:09-0400 Systolic blood pressure 120 mm[Hg] Nahum Hernandez MD Work Phone: [facility] 03-22-2025 11:16-0400 Body height 139.[address] Chema Perry MD Work Phone: [facility] 03-22-2025 11:16-0400 Body mass index (BMI) [Ratio] 24.8 kg/m2 Dr. Chema Perry MD Work Phone: [facility] 03-22-2025 11:16-0400 Body weight 48.[address] Chema Perry MD Work Phone: [facility] 03-22-2025 11:16-0400 Diastolic blood pressure 82 mm[Hg] Dr. Chema Perry MD Work Phone: [facility] 03-22-2025 11:16-0400 Heart rate 66 /min Dr. Chema Perry MD Work Phone: [facility] 03-22-2025 11:16-0400 Systolic blood pressure 124 mm[Hg] Dr. Chema Perry MD Work Phone: [facility] 03-17-2025 13:06-0400 Diastolic blood pressure 49 mm[Hg] Laisha Lizarraga APRN.CNP Work Phone: [facility] 03-17-2025 13:06-0400 Heart rate 70 /min Laisha Sarah MD PHYSICIAN DERMATOLOGIST.TAX ASSOCIATE ATTORNEY Work Phone: [facility] 03-17-2025 13:06-0400 Systolic blood pressure 96 mm[Hg] Laisha Aguilarjared MD PHYSICIAN DERMATOLOGIST.TAX ASSOCIATE ATTORNEY Work Phone: [facility] 03-14-2025 11:38-0400 Body height 139.[address] Chema Perry MD Work Phone: [facility] 03-14-2025 11:38-0400 Body mass index (BMI) [Ratio] 24.9 kg/m2 Dr. Chema Perry MD Work Phone: [facility] 03-14-2025 11:38-0400 Body temperature 98.2 [degF] Dr. Chema Perry MD Work Phone: [facility] 03-14-2025 11:38-0400 Body weight 48.[address] Chema Perry MD Work Phone: [facility] 03-14-2025 11:38-0400 Diastolic blood pressure 76 mm[Hg] Dr. Chema Perry MD Work Phone: [facility] 03-14-2025 11:38-0400 Heart rate 64 /min Dr. Chema Perry MD Work Phone: [facility] 03-14-2025 11:38-0400 Respiratory rate 16 /min Dr. Chema Perry MD Work Phone: [facility] 03-14-2025 11:38-0400 SaO2% (BldA) [Mass fraction] 89 % Dr. Chema Perry MD Work Phone: [facility] 03-14-2025 11:38-0400 Systolic blood pressure 133 mm[Hg] Dr. Chema Perry MD Work Phone: [facility] 03-11-2025 21:52-0400 Body temperature 98 [degF] Dr. Chema Perry MD Work Phone: [facility] 03-11-2025 21:52-0400 Diastolic blood pressure 65 mm[Hg] Dr. Chema Perry MD Work Phone: [facility] 03-11-2025 21:52-0400 Heart rate 65 /min Dr. Chema Perry MD Work Phone: [facility] 03-11-2025 21:52-0400 Respiratory rate 18 /min Dr. Chema Perry MD Work Phone: [facility] 03-11-2025 21:52-0400 SaO2% (BldA) [Mass fraction] 95 % Dr. Chema Perry MD Work Phone: [facility] 03-11-2025 21:52-0400 Systolic blood pressure 143 mm[Hg] Dr. Chema Perry MD Work Phone: [facility] 03-11-2025 20:00-0400 Inhaled oxygen flow rate 2 L/min Dr. Chema Perry MD Work Phone: [facility] 03-11-2025 18:35-0400 Body mass index (BMI) [Ratio] 24.7 kg/m2 Dr. Chema Perry MD Work Phone: [facility] 03-11-2025 18:35-0400 Body weight 48.[address] Chema Perry MD Work Phone: [facility] 03-11-2025 18:08-0400 Body height 139.[address] Chema Perry MD Work Phone: [facility] 02-08-2025 11:55-0400 Body temperature 98.1 [degF] Dr. Chema Perry MD Work Phone: [facility] 02-08-2025 11:55-0400 Diastolic blood pressure 89 mm[Hg] Dr. Chema Perry MD Work Phone: [facility] 02-08-2025 11:55-0400 Heart rate 88 /min Dr. Chema Perry MD Work Phone: [facility] 02-08-2025 11:55-0400 Respiratory rate 18 /min Dr. Chema Perry MD Work Phone: [facility] 02-08-2025 11:55-0400 SaO2% (BldA) [Mass fraction] 94 % Dr. Chema Perry MD Work Phone: [facility] 02-08-2025 11:55-0400 Systolic blood pressure 131 mm[Hg] Dr. Chema Perry MD Work Phone: [facility] 02-08-2025 09:12-0400 Inhaled oxygen flow rate 2 L/min Dr. Chema Perry MD Work Phone: [facility] 02-06-2025 13:53-0400 Body height 139.[address] Chema Perry MD Work Phone: [facility] 02-06-2025 13:53-0400 Body weight 49.[address] Chema Perry MD Work Phone: [facility] 02-06-2025 11:22-0400 Body mass index (BMI) [Ratio] 25.4 kg/m2 Dr. Chema Perry MD Work Phone: [facility] 02-06-2025 10:58-0400 Body temperature 98.7 [degF] Dr. Chema Perry MD Work Phone: [facility] 02-06-2025 10:58-0400 Diastolic blood pressure 76 mm[Hg] Dr. Chema Perry MD Work Phone: [facility] 02-06-2025 10:58-0400 Heart rate 71 /min Dr. Chema Perry MD Work Phone: [facility] 02-06-2025 10:58-0400 Respiratory rate 18 /min Dr. Chema Perry MD Work Phone: [facility] 02-06-2025 10:58-0400 SaO2% (BldA) [Mass fraction] 99 % Dr. Chema Perry MD Work Phone: [facility] 02-06-2025 10:58-0400 Systolic blood pressure 110 mm[Hg] Dr. Chema Perry MD Work Phone: [facility] 02-06-2025 07:30-0400 Body height 139.[address] Chema Perry MD Work Phone: [facility] 02-06-2025 07:30-0400 Body mass index (BMI) [Ratio] 25.4 kg/m2 Dr. Chema Perry MD Work Phone: [facility] 02-06-2025 07:30-0400 Body weight 49.[address] Chema Perry MD Work Phone: [facility] 02-03-2025 08:15-0400 Body temperature 97.3 [degF] Dr. Chema Perry MD Work Phone: [facility] 02-03-2025 08:15-0400 Diastolic blood pressure 62 mm[Hg] Dr. Chema Perry MD Work Phone: [facility] 02-03-2025 08:15-0400 Heart rate 77 /min Dr. Chema Perry MD Work Phone: [facility] 02-03-2025 08:15-0400 Respiratory rate 16 /min Dr. Chema Perry MD Work Phone: [facility] 02-03-2025 08:15-0400 SaO2% (BldA) [Mass fraction] 98 % Dr. Chema Perry MD Work Phone: [facility] 02-03-2025 08:15-0400 Systolic blood pressure 101 mm[Hg] Dr. Chema Perry MD Work Phone: [facility] 02-03-2025 04:07-0400 Body height 139.[address] Chema Perry MD Work Phone: [facility] 02-03-2025 04:07-0400 Body mass index (BMI) [Ratio] 28.8 kg/m2 Dr. Chema Perry MD Work Phone: [facility] 02-03-2025 04:07-0400 Body weight 56.[address] Chema Perry MD Work Phone: [facility] 12-23-2024 14:30-0400 Diastolic blood pressure 56 mm[Hg] Laisha Lizarraga APRN.TAX ASSOCIATE ATTORNEY Work Phone: [facility] 12-23-2024 14:30-0400 Heart rate 70 /min Laisha Lizarraga APRN.TAX ASSOCIATE ATTORNEY Work Phone: [facility] 12-23-2024 14:30-0400 Systolic blood pressure 121 mm[Hg] Laisha Lizarraga APRN.TAX ASSOCIATE ATTORNEY Work Phone: [facility] 12-20-2024 13:53-0400 Body mass index (BMI) [Ratio] 23.24 kg/m2 Sourav Marcial MD Work Phone: [facility] 12-20-2024 13:53-0400 Body weight 45.36 kg Sourav Marcial MD Work Phone: [facility] 12-20-2024 13:53-0400 Diastolic blood pressure 56 mm[Hg] Sourav Marcial MD Work Phone: [facility] 12-20-2024 13:53-0400 Heart rate 72 /min Sourav Marcial MD Work Phone: [facility] 12-20-2024 13:53-0400 Systolic blood pressure 108 mm[Hg] Sourav Marcial MD Work Phone: [facility] 12-19-2024 14:46-0400 Body mass index (BMI) [Ratio] 23.57 kg/m2 Krislyn Aberegg PA Work Phone: [facility] 12-19-2024 14:46-0400 Body temperature 98.8 [degF] Krislyn Aberegg PA Work Phone: [facility] 12-19-2024 14:46-0400 Body weight 46 kg Krislyn Aberegg PA Work Phone: [facility] 12-19-2024 14:46-0400 Diastolic blood pressure 71 mm[Hg] Krislyn Aberegg PA Work Phone: [facility] 12-19-2024 14:46-0400 Heart rate 71 /min Krislyn Aberegg PA Work Phone: [facility] 12-19-2024 14:46-0400 Respiratory rate 16 /min Krislyn Aberegg PA Work Phone: [facility] 12-19-2024 14:46-0400 SaO2% (BldA) [Mass fraction] 94 % Krislyn Aberegg PA Work Phone: [facility] 12-19-2024 14:46-0400 Systolic blood pressure 120 mm[Hg] Krislyn Aberegg PA Work Phone: [facility] 12-03-2024 11:29-0400 Body height 139.7 cm Anila De Paz MD Work Phone: [facility] 12-03-2024 11:29-0400 Body mass index (BMI) [Ratio] 24.03 kg/m2 Anila De Paz MD Work Phone: [facility] 12-03-2024 11:29-0400 Body weight 46.9 kg Anila De Paz MD Work Phone: [facility] 12-03-2024 11:29-0400 Diastolic blood pressure 48 mm[Hg] Anila De Paz MD Work Phone: [facility] 12-03-2024 11:29-0400 Heart rate 60 /min Anila De Paz MD Work Phone: [facility] 12-03-2024 11:29-0400 Systolic blood pressure 106 mm[Hg] Anila De Paz MD Work Phone: [facility] 11-03-2024 15:32-0400 Body mass index (BMI) [Ratio] 24.29 kg/m2 Denicejoseph Houstoner PA-C Work Phone: [facility] 11-03-2024 15:32-0400 Body weight 47.4 kg Denice Houstoner PA-C Work Phone: [facility] 11-03-2024 15:32-0400 Diastolic blood pressure 73 mm[Hg] Denice Houstoner PA-C Work Phone: [facility] 11-03-2024 15:32-0400 Heart rate 68 /min Denice Houstoner PA-C Work Phone: [facility] 11-03-2024 15:32-0400 SaO2% (BldA) [Mass fraction] 90 % Denice Houstoner PA-C Work Phone: [facility] 11-03-2024 15:32-0400 Systolic blood pressure 125 mm[Hg] Denicejoseph Houstoner PA-C Work Phone: [facility] 10-29-2024 13:27-0400 Body height 139.7 cm Anila De Paz MD Work Phone: [facility] 10-29-2024 13:27-0400 Body mass index (BMI) [Ratio] 24.29 kg/m2 Anila De Paz MD Work Phone: [facility] 10-29-2024 13:27-0400 Body weight 47.4 kg Anila De Paz MD Work Phone: [facility] 10-29-2024 13:27-0400 Diastolic blood pressure 51 mm[Hg] Anila De Paz MD Work Phone: [facility] 10-29-2024 13:27-0400 Heart rate 77 /min Anila De Paz MD Work Phone: [facility] 10-29-2024 13:27-0400 Systolic blood pressure 93 mm[Hg] Anila De Paz MD Work Phone: [facility] 10-22-2024 08:26-0500 Body mass index (BMI) [Ratio] 23.9 kg/m2 Dr. Chema Perry MD Work Phone: [facility] 10-22-2024 08:26-0500 Body temperature 97.4 [degF] Dr. Chema Perry MD Work Phone: [facility] 10-22-2024 08:26-0500 Body weight 46.[address] Chema Perry MD Work Phone: [facility] 10-22-2024 08:26-0500 Diastolic blood pressure 79 mm[Hg] Dr. Chema Perry MD Work Phone: [facility] 10-22-2024 08:26-0500 Heart rate 72 /min Dr. Chema Perry MD Work Phone: [facility] 10-22-2024 08:26-0500 Respiratory rate 18 /min Dr. Chema Perry MD Work Phone: [facility] 10-22-2024 08:26-0500 SaO2% (BldA) [Mass fraction] 93 % Dr. Chema Perry MD Work Phone: [facility] 10-22-2024 08:26-0500 Systolic blood pressure 125 mm[Hg] Dr. Chema Perry MD Work Phone: [facility] 10-14-2024 13:18-0500 Body height 139.[address] Chema Perry MD Work Phone: [facility] 10-14-2024 13:18-0500 Body mass index (BMI) [Ratio] 24.4 kg/m2 Dr. Chema Perry MD Work Phone: [facility] 10-14-2024 13:18-0500 Body temperature 98.4 [degF] Dr. Chema Perry MD Work Phone: [facility] 10-14-2024 13:18-0500 Body weight 47.[address] Chema Perry MD Work Phone: [facility] 10-14-2024 13:18-0500 Diastolic blood pressure 79 mm[Hg] Dr. Chema Perry MD Work Phone: [facility] 10-14-2024 13:18-0500 Heart rate 78 /min Dr. Chema Perry MD Work Phone: [facility] 10-14-2024 13:18-0500 Respiratory rate 16 /min Dr. Chema Perry MD Work Phone: [facility] 10-14-2024 13:18-0500 SaO2% (BldA) [Mass fraction] 90 % Dr. Chema Perry MD Work Phone: [facility] 10-14-2024 13:18-0500 Systolic blood pressure 113 mm[Hg] Dr. Chema Perry MD Work Phone: [facility] 10-13-2024 13:08-0500 Body height 139.7 cm Laisha Lizarraga APRN.TAX ASSOCIATE ATTORNEY Work Phone: [facility] 10-13-2024 13:08-0500 Body mass index (BMI) [Ratio] 23.47 kg/m2 Laisha Lizarraga APRN.TAX ASSOCIATE ATTORNEY Work Phone: [facility] 10-13-2024 13:08-0500 Body weight 45.81 kg Laisha Lizarraga APRN.TAX ASSOCIATE ATTORNEY Work Phone: [facility] 10-13-2024 13:08-0500 Diastolic blood pressure 43 mm[Hg] Laisha Lizarraga APRN.TAX ASSOCIATE ATTORNEY Work Phone: [facility] 10-13-2024 13:08-0500 Heart rate 73 /min Laisha Lizarraga APRN.TAX ASSOCIATE ATTORNEY Work Phone: [facility] 10-13-2024 13:08-0500 Systolic blood pressure 81 mm[Hg] Laisha Sarah STEPHENS Work Phone: [facility] 10-08-2024 10:12-0500 Body height 142.2 cm Anila De Paz MD Work Phone: [facility] 10-08-2024 10:12-0500 Body mass index (BMI) [Ratio] 23.19 kg/m2 Anila De Paz MD Work Phone: [facility] 10-08-2024 10:12-0500 Body temperature 98.2 [degF] Anila De Paz MD Work Phone: [facility] 10-08-2024 10:12-0500 Body weight 46.9 kg Anila De Paz MD Work Phone: [facility] 10-08-2024 10:12-0500 Diastolic blood pressure 64 mm[Hg] Anila De Paz MD Work Phone: [facility] 10-08-2024 10:12-0500 Heart rate 68 /min Anila De Paz MD Work Phone: [facility] 10-08-2024 10:12-0500 Systolic blood pressure 137 mm[Hg] Anila De Paz MD Work Phone: [facility] 09-18-2024 10:18-0500 Body temperature 97.7 [degF] Dr. Chema Perry MD Work Phone: [facility] 09-18-2024 10:18-0500 Diastolic blood pressure 74 mm[Hg] Dr. Chema Perry MD Work Phone: [facility] 09-18-2024 10:18-0500 Heart rate 78 /min Dr. Chema Perry MD Work Phone: [facility] 09-18-2024 10:18-0500 Respiratory rate 18 /min Dr. Chema Perry MD Work Phone: [facility] 09-18-2024 10:18-0500 SaO2% (BldA) [Mass fraction] 98 % Dr. Chema Perry MD Work Phone: [facility] 09-18-2024 10:18-0500 Systolic blood pressure 154 mm[Hg] Dr. Chema Perry MD Work Phone: [facility] 09-18-2024 08:38-0500 Body mass index (BMI) [Ratio] 25.7 kg/m2 Dr. Chema Perry MD Work Phone: [facility] 09-18-2024 08:38-0500 Body weight 50.[address] Chema Perry MD Work Phone: [facility] 09-14-2024 13:49-0500 Body height 139.7 cm Pacc 1 Work Phone: [facility] 09-14-2024 13:49-0500 Body mass index (BMI) [Ratio] 24.5 kg/m2 Pacc 1 Work Phone: [facility] 09-14-2024 13:49-0500 Body temperature 98.29 [degF] Pacc 1 Work Phone: [facility] 09-14-2024 13:49-0500 Body weight 47.81 kg Pacc 1 Work Phone: [facility] 09-14-2024 13:49-0500 Diastolic blood pressure 64 mm[Hg] Pacc 1 Work Phone: [facility] 09-14-2024 13:49-0500 Heart rate 71 /min Pacc 1 Work Phone: [facility] 09-14-2024 13:49-0500 Respiratory rate 12 /min Pacc 1 Work Phone: [facility] 09-14-2024 13:49-0500 SaO2% (BldA) [Mass fraction] 96 % Pacc 1 Work Phone: [facility] 09-14-2024 13:49-0500 Systolic blood pressure 124 mm[Hg] Pacc 1 Work Phone: [facility] 09-13-2024 15:50-0500 Diastolic blood pressure 74 mm[Hg] Alisa Haile MD Work Phone: [facility] 09-13-2024 15:50-0500 Heart rate 58 /min Alisa Haile MD Work Phone: [facility] 09-13-2024 15:50-0500 Respiratory rate 16 /min Alisa Haile MD Work Phone: [facility] 09-13-2024 15:50-0500 SaO2% (BldA) [Mass fraction] 96 % Alisa Haile MD Work Phone: [facility] 09-13-2024 15:50-0500 Systolic blood pressure 159 mm[Hg] Alisa Haile MD Work Phone: [facility] 09-13-2024 14:20-0500 Body temperature 97.9 [degF] Alisa Haile MD Work Phone: [facility] 09-03-2024 14:23-0500 Body height 142.2 cm Anila De Paz MD Work Phone: [facility] 09-03-2024 14:23-0500 Body mass index (BMI) [Ratio] 22.95 kg/m2 Anila De Paz MD Work Phone: [facility] 09-03-2024 14:23-0500 Body weight 46.4 kg Anila De Paz MD Work Phone: [facility] 09-03-2024 14:23-0500 Diastolic blood pressure 57 mm[Hg] Anila De Paz MD Work Phone: [facility] 09-03-2024 14:23-0500 Heart rate 72 /min Anila De Paz MD Work Phone: [facility] 09-03-2024 14:23-0500 Systolic blood pressure 108 mm[Hg] Anila De Paz MD Work Phone: [facility] 08-06-2024 09:50-0500 Body height 142.2 cm Denice Houstoner PA-C Work Phone: [facility] 08-06-2024 09:50-0500 Body mass index (BMI) [Ratio] 22.69 kg/m2 Denice Houstoner PA-C Work Phone: [facility] 08-06-2024 09:50-0500 Body weight 45.9 kg Denice Houstoner PA-C Work Phone: [facility] 08-06-2024 09:50-0500 Diastolic blood pressure 63 mm[Hg] Denice Houstoner PA-C Work Phone: [facility] 08-06-2024 09:50-0500 Heart rate 79 /min Denice Houstoner PA-C Work Phone: [facility] 08-06-2024 09:50-0500 SaO2% (BldA) [Mass fraction] 94 % Denice Houstoner PA-C Work Phone: [facility] 08-06-2024 09:50-0500 Systolic blood pressure 116 mm[Hg] Denice Jacobs PA-C Work Phone: [facility] 08-03-2024 15:36-0500 Diastolic blood pressure 74 mm[Hg] Sourav Marcial MD Work Phone: [facility] 08-03-2024 15:36-0500 Heart rate 75 /min Sourav Marcial MD Work Phone: [facility] 08-03-2024 15:36-0500 Systolic blood pressure 148 mm[Hg] Sourav Marcial MD Work Phone: [facility] 07-21-2024 17:24-0500 Body temperature 96.8 [degF] Eliazar Brown MD Work Phone: [facility] 07-21-2024 17:24-0500 Diastolic blood pressure 69 mm[Hg] Eliazar Brown MD Work Phone: [facility] 07-21-2024 17:24-0500 Heart rate 73 /min Eliazar Brown MD Work Phone: [facility] 07-21-2024 17:24-0500 Respiratory rate 16 /min Eliazar Brown MD Work Phone: [facility] 07-21-2024 17:24-0500 SaO2% (BldA) [Mass fraction] 92 % Eliazar Brown MD Work Phone: [facility] 07-21-2024 17:24-0500 Systolic blood pressure 132 mm[Hg] Eliazar Brown MD Work Phone: [facility] 07-21-2024 16:35-0500 Body height 142.2 cm Eliazar Brown MD Work Phone: [facility] 07-21-2024 16:35-0500 Body mass index (BMI) [Ratio] 21.97 kg/m2 Eliazar Brown MD Work Phone: [facility] 07-21-2024 16:35-0500 Body weight 44.45 kg Eliazar Brown MD Work Phone: [facility] 07-16-2024 14:35-0500 Body mass index (BMI) [Ratio] 19.79 kg/m2 Pac 1 Work Phone: [facility] 07-16-2024 14:35-0500 Body weight 44.45 kg Pac 1 Work Phone: [facility] 07-16-2024 14:35-0500 Diastolic blood pressure 81 mm[Hg] Pacc 1 Work Phone: [facility] 07-16-2024 14:35-0500 Heart rate 62 /min Pacc 1 Work Phone: [facility] 07-16-2024 14:35-0500 SaO2% (BldA) [Mass fraction] 96 % Pacc 1 Work Phone: [facility] 07-16-2024 14:35-0500 Systolic blood pressure 161 mm[Hg] [facility] 1 Work Phone: [facility] 07-07-2024 11:48-0500 Body mass index (BMI) [Ratio] 22.6 kg/m2 Dr. Chema Perry MD Work Phone: [facility] 07-07-2024 11:48-0500 Body temperature 98.6 [degF] Dr. Chema Perry MD Work Phone: [facility] 07-07-2024 11:48-0500 Body weight 45.[address] Chema Perry MD Work Phone: [facility] 07-07-2024 11:48-0500 Diastolic blood pressure 83 mm[Hg] Dr. Chema Perry MD Work Phone: [facility] 07-07-2024 11:48-0500 Heart rate 58 /min Dr. Chema Perry MD Work Phone: [facility] 07-07-2024 11:48-0500 Respiratory rate 16 /min Dr. Chema Perry MD Work Phone: [facility] 07-07-2024 11:48-0500 SaO2% (BldA) [Mass fraction] 92 % Dr. Chema Perry MD Work Phone: [facility] 07-07-2024 11:48-0500 Systolic blood pressure 160 mm[Hg] Dr. Chema Perry MD Work Phone: [facility] 07-01-2024 13:25-0500 Body height 149.9 cm Laisha Lizarraga APRN.TAX ASSOCIATE ATTORNEY Work Phone: [facility] 07-01-2024 13:25-0500 Body mass index (BMI) [Ratio] 19.87 kg/m2 Laisha Lizarraga APRN.TAX ASSOCIATE ATTORNEY Work Phone: [facility] 07-01-2024 13:25-0500 Body weight 44.63 kg Laisha Gerardoi MD PHYSICIAN DERMATOLOGIST.TAX ASSOCIATE ATTORNEY Work Phone: [facility] 07-01-2024 13:25-0500 Diastolic blood pressure 64 mm[Hg] Laisha Hilariopablito BOTELLO.TAX ASSOCIATE ATTORNEY Work Phone: [facility] 07-01-2024 13:25-0500 Heart rate 80 /min Laisha Aguilarjared MD PHYSICIAN DERMATOLOGIST.TAX ASSOCIATE ATTORNEY Work Phone: [facility] 07-01-2024 13:25-0500 Systolic blood pressure 106 mm[Hg] Laisha Hilariopablito MD PHYSICIAN DERMATOLOGIST.TAX ASSOCIATE ATTORNEY Work Phone: [facility] 06-18-2024 12:44-0400 Body height 149.9 cm Anila De Paz MD Work Phone: [facility] 06-18-2024 12:44-0400 Body mass index (BMI) [Ratio] 20.47 kg/m2 Anila De Paz MD Work Phone: [facility] 06-18-2024 12:44-0400 Body weight 46 kg Anila De Paz MD Work Phone: [facility] 06-18-2024 12:44-0400 Diastolic blood pressure 56 mm[Hg] Anila De Paz MD Work Phone: [facility] 06-18-2024 12:44-0400 Heart rate 68 /min Anila De Paz MD Work Phone: [facility] 06-18-2024 12:44-0400 Systolic blood pressure 111 mm[Hg] Anila De Paz MD Work Phone: [facility] 05-17-2024 15:07-0400 Body mass index (BMI) [Ratio] 21.17 kg/m2 Susan Squires MD Work Phone: [facility] 05-17-2024 15:07-0400 Body temperature 97.2 [degF] Susan Squires MD Work Phone: [facility] 05-17-2024 15:07-0400 Body weight 47.54 kg Susan Squires MD Work Phone: [facility] 05-17-2024 15:07-0400 Diastolic blood pressure 72 mm[Hg] Susan Squires MD Work Phone: [facility] 05-17-2024 15:07-0400 Heart rate 78 /min Susan Squires MD Work Phone: [facility] 05-17-2024 15:07-0400 SaO2% (BldA) [Mass fraction] 92 % Susan Squires MD Work Phone: [facility] 05-17-2024 15:07-0400 Systolic blood pressure 138 mm[Hg] Susan Squires MD Work Phone: [facility] 03-25-2024 13:38-0400 Body height 149.9 cm Laisha Lizarraga APRN.[employer]X ASSOCIATE ATTORNEY Work Phone: [facility] 03-25-2024 13:38-0400 Body mass index (BMI) [Ratio] 20.2 kg/m2 Laisha Lizarraga APRN.TAX ASSOCIATE ATTORNEY Work Phone: [facility] 03-25-2024 13:38-0400 Body weight 45.36 kg Laisha Lizarraga APRN.TAX ASSOCIATE ATTORNEY Work Phone: [facility] 03-25-2024 13:38-0400 Diastolic blood pressure 81 mm[Hg] Laisha Lizarraga APRN.TAX ASSOCIATE ATTORNEY Work Phone: [facility] 03-25-2024 13:38-0400 Heart rate 68 /min Laisha Lizarraga APRN.TAX ASSOCIATE ATTORNEY Work Phone: [facility] 03-25-2024 13:38-0400 Systolic blood pressure 137 mm[Hg] Laisha Lizarraga APRN.TAX ASSOCIATE ATTORNEY Work Phone: [facility] 11-12-2023 14:58-0400 Body height 142.[address] Chema Perry Work Phone: [facility] 11-12-2023 14:58-0400 Body mass index (BMI) [Ratio] 22.4 kg/m2 Dr. Chema Perry Work Phone: [facility] 11-12-2023 14:58-0400 Body weight 45.[address] Chema Perry Work Phone: [facility] 11-12-2023 14:58-0400 Diastolic blood pressure 71 mm[Hg] Dr. Chema Perry Work Phone: [facility] 11-12-2023 14:58-0400 Heart rate 71 /min Dr. Chema Perry Work Phone: [facility] 11-12-2023 14:58-0400 Respiratory rate 18 /min Dr. Chema Perry Work Phone: [facility] 11-12-2023 14:58-0400 SaO2% (BldA) [Mass fraction] 97 % Dr. Chema Perry Work Phone: [facility] 11-12-2023 14:58-0400 Systolic blood pressure 114 mm[Hg] Dr. Chema Perry Work Phone: [facility] 10-16-2023 14:36-0500 Diastolic blood pressure 55 mm[Hg] Laisha Lizarraga APRN.TAX ASSOCIATE ATTORNEY Work Phone: [facility] 10-16-2023 14:36-0500 Heart rate 79 /min Laisha Lizarraga APRN.TAX ASSOCIATE ATTORNEY Work Phone: [facility] 10-16-2023 14:36-0500 Systolic blood pressure 107 mm[Hg] Laisha Lizarraga APRN.TAX ASSOCIATE ATTORNEY Work Phone: [facility] 10-08-2023 14:26-0500 Body height 142.[address] Chema Perry Work Phone: [facility] 10-08-2023 14:26-0500 Body mass index (BMI) [Ratio] 22.1 kg/m2 Dr. Chema Perry Work Phone: [facility] 10-08-2023 14:26-0500 Body temperature 97.8 [degF] Dr. Chema Perry Work Phone: [facility] 10-08-2023 14:26-0500 Body weight 44.[address] Chema Perry Work Phone: [facility] 10-08-2023 14:26-0500 Diastolic blood pressure 75 mm[Hg] Dr. Chema Perry Work Phone: [facility] 10-08-2023 14:26-0500 Heart rate 73 /min Dr. Chema Perry Work Phone: [facility] 10-08-2023 14:26-0500 Respiratory rate 16 /min Dr. Chema Perry Work Phone: [facility] 10-08-2023 14:26-0500 SaO2% (BldA) [Mass fraction] 96 % Dr. Chema Perry Work Phone: [facility] 10-08-2023 14:26-0500 Systolic blood pressure 127 mm[Hg] Dr. Chema Perry Work Phone: [facility] 09-24-2023 09:59-0500 Body mass index (BMI) [Ratio] 23.1 kg/m2 Dr. Chema Perry Work Phone: [facility] 09-24-2023 09:59-0500 Body temperature 97.3 [degF] Dr. Chema Perry Work Phone: [facility] 09-24-2023 09:59-0500 Body weight 46.[address] Chema Perry Work Phone: [facility] 09-24-2023 09:59-0500 Diastolic blood pressure 76 mm[Hg] Dr. Chema Perry Work Phone: [facility] 09-24-2023 09:59-0500 Heart rate 77 /min Dr. Chema Perry Work Phone: [facility] 09-24-2023 09:59-0500 Respiratory rate 16 /min Dr. Chema Perry Work Phone: [facility] 09-24-2023 09:59-0500 SaO2% (BldA) [Mass fraction] 93 % Dr. Chema Perry Work Phone: [facility] 09-24-2023 09:59-0500 Systolic blood pressure 126 mm[Hg] Dr. Chema Perry Work Phone: [facility] 08-13-2023 15:36-0500 Body mass index (BMI) [Ratio] 23.6 kg/m2 Dr. Chema Perry Work Phone: [facility] 08-13-2023 15:36-0500 Body temperature 96.4 [degF] Dr. Chema Perry Work Phone: [facility] 08-13-2023 15:36-0500 Body weight 47.[address] Chema Perry Work Phone: [facility] 08-13-2023 15:36-0500 Diastolic blood pressure 83 mm[Hg] Dr. Chema Perry Work Phone: [facility] 08-13-2023 15:36-0500 Heart rate 71 /min Dr. Chema Perry Work Phone: [facility] 08-13-2023 15:36-0500 Respiratory rate 16 /min Dr. Chema Perry Work Phone: [facility] 08-13-2023 15:36-0500 SaO2% (BldA) [Mass fraction] 90 % Dr. Chema Perry Work Phone: [facility] 08-13-2023 15:36-0500 Systolic blood pressure 127 mm[Hg] Dr. Chema Perry Work Phone: [facility] 06-16-2023 13:40-0400 Body weight 48.08 kg Laisha Sarah BOTELLO.TAX ASSOCIATE ATTORNEY Work Phone: [facility] 06-16-2023 13:40-0400 Diastolic blood pressure 72 mm[Hg] Laisha Sarah BOTELLO.TAX ASSOCIATE ATTORNEY Work Phone: [facility] 06-16-2023 13:40-0400 Heart rate 81 /min Laisha Sarah MD PHYSICIAN DERMATOLOGIST.TAX ASSOCIATE ATTORNEY Work Phone: [facility] 06-16-2023 13:40-0400 Systolic blood pressure 118 mm[Hg] Laisha Sarah MD PHYSICIAN DERMATOLOGIST.TAX ASSOCIATE ATTORNEY Work Phone: [facility] 05-15-2023 14:11-0400 Body height 142.[address] Chema Perry Work Phone: [facility] 05-12-2023 11:40-0400 Body mass index (BMI) [Ratio] 24.4 kg/m2 Dr. Chema Perry Work Phone: [facility] 05-12-2023 11:40-0400 Body weight 49.[address] Chema Perry Work Phone: [facility] 05-12-2023 11:40-0400 Diastolic blood pressure 72 mm[Hg] Dr. Chema Perry Work Phone: [facility] 05-12-2023 11:40-0400 Heart rate 73 /min Dr. Chema Perry Work Phone: [facility] 05-12-2023 11:40-0400 Respiratory rate 18 /min Dr. Chema Perry Work Phone: [facility] 05-12-2023 11:40-0400 SaO2% (BldA) [Mass fraction] 96 % Dr. Chema Perry Work Phone: [facility] 05-12-2023 11:40-0400 Systolic blood pressure 111 mm[Hg] Dr. Chema Perry Work Phone: [facility] 04-07-2023 13:32-0400 Body height 142.[address] Chema Perry Work Phone: [facility] 04-07-2023 13:32-0400 Body mass index (BMI) [Ratio] 23.2 kg/m2 Dr. Chema Perry Work Phone: [facility] 04-07-2023 13:32-0400 Body temperature 96.9 [degF] Dr. Chema Perry Work Phone: [facility] 04-07-2023 13:32-0400 Body weight 46.[address] Chema Perry Work Phone: [facility] 04-07-2023 13:32-0400 Diastolic blood pressure 88 mm[Hg] Dr. Chema Perry Work Phone: [facility] 04-07-2023 13:32-0400 Heart rate 79 /min Dr. Chema Perry Work Phone: [facility] 04-07-2023 13:32-0400 Respiratory rate 18 /min Dr. Chema Perry Work Phone: [facility] 04-07-2023 13:32-0400 SaO2% (BldA) [Mass fraction] 95 % Dr. Chema Perry Work Phone: [facility] 04-07-2023 13:32-0400 Systolic blood pressure 142 mm[Hg] Dr. Chema Perry Work Phone: [facility] 04-02-2023 04:28-0400 Body height 142.[address] Chema Perry Work Phone: [facility] 04-02-2023 04:28-0400 Body mass index (BMI) [Ratio] 21.2 kg/m2 Dr. Chema Perry Work Phone: [facility] 04-02-2023 04:28-0400 Body temperature 98.3 [degF] Dr. Chema Perry Work Phone: [facility] 04-02-2023 04:28-0400 Body weight 42.[address] Chema Perry Work Phone: [facility] 04-02-2023 04:28-0400 Diastolic blood pressure 98 mm[Hg] Dr. Chema Perry Work Phone: [facility] 04-02-2023 04:28-0400 Heart rate 79 /min Dr. Chema Perry Work Phone: [facility] 04-02-2023 04:28-0400 Respiratory rate 15 /min Dr. Chema Perry Work Phone: [facility] 04-02-2023 04:28-0400 SaO2% (BldA) [Mass fraction] 99 % Dr. Chema Perry Work Phone: [facility] 04-02-2023 04:28-0400 Systolic blood pressure 184 mm[Hg] Dr. Chema Perry Work Phone: [facility] 03-24-2023 11:37-0400 Body mass index (BMI) [Ratio] 25.1 kg/m2 Dr. Chema Perry Work Phone: [facility] 03-24-2023 11:37-0400 Body temperature 98.1 [degF] Dr. Chema Perry Work Phone: [facility] 03-24-2023 11:37-0400 Body weight 50.[address] Chema Perry Work Phone: [facility] 03-24-2023 11:37-0400 Diastolic blood pressure 78 mm[Hg] Dr. Chema Perry Work Phone: [facility] 03-24-2023 11:37-0400 Heart rate 74 /min Dr. Chema Perry Work Phone: [facility] 03-24-2023 11:37-0400 Respiratory rate 12 /min Dr. Chema Perry Work Phone: [facility] 03-24-2023 11:37-0400 SaO2% (BldA) [Mass fraction] 93 % Dr. Chema Perry Work Phone: [facility] 03-24-2023 11:37-0400 Systolic blood pressure 147 mm[Hg] Dr. Chema Perry Work Phone: [facility] 02-12-2023 14:09-0400 Body height 149.[address] Chema Perry Work Phone: [facility] 02-12-2023 14:09-0400 Body mass index (BMI) [Ratio] 22.1 kg/m2 Dr. Chema Perry Work Phone: [facility] 02-12-2023 14:09-0400 Body temperature 98.2 [degF] Dr. Chema Perry Work Phone: [facility] 02-12-2023 14:09-0400 Body weight 49.[address] Chema Perry Work Phone: [facility] 02-12-2023 14:09-0400 Diastolic blood pressure 82 mm[Hg] Dr. Chema Perry Work Phone: [facility] 02-12-2023 14:09-0400 Heart rate 82 /min Dr. Chema Perry Work Phone: [facility] 02-12-2023 14:09-0400 Respiratory rate 16 /min Dr. Chema Perry Work Phone: [facility] 02-12-2023 14:09-0400 SaO2% (BldA) [Mass fraction] 91 % Dr. Chema Perry Work Phone: [facility] 02-12-2023 14:09-0400 Systolic blood pressure 147 mm[Hg] Dr. Chema Perry Work Phone: [facility] 01-29-2023 15:38-0400 Body height 149.[address] Chema Perry Work Phone: [facility] 01-29-2023 15:38-0400 Body mass index (BMI) [Ratio] 23.1 kg/m2 Dr. Chema Perry Work Phone: [facility] 01-29-2023 15:38-0400 Body temperature 97.4 [degF] Dr. Chema Perry Work Phone: [facility] 01-29-2023 15:38-0400 Body weight 51.[address] Chema Perry Work Phone: [facility] 01-29-2023 15:38-0400 Diastolic blood pressure 82 mm[Hg] Dr. Chema Perry Work Phone: [facility] 01-29-2023 15:38-0400 Heart rate 78 /min Dr. Chema Perry Work Phone: [facility] 01-29-2023 15:38-0400 Respiratory rate 16 /min Dr. Chema Perry Work Phone: [facility] 01-29-2023 15:38-0400 SaO2% (BldA) [Mass fraction] 92 % Dr. Chema Perry Work Phone: [facility] 01-29-2023 15:38-0400 Systolic blood pressure 130 mm[Hg] Dr. Chema Perry Work Phone: [facility] 01-20-2023 09:09-0400 Body temperature 98 [degF] Dr. Chema Perry Work Phone: [facility] 01-20-2023 09:09-0400 Diastolic blood pressure 66 mm[Hg] Dr. Chema Perry Work Phone: [facility] 01-20-2023 09:09-0400 Heart rate 70 /min Dr. Chema Perry Work Phone: [facility] 01-20-2023 09:09-0400 Respiratory rate 16 /min Dr. Chema Perry Work Phone: [facility] 01-20-2023 09:09-0400 SaO2% (BldA) [Mass fraction] 94 % Dr. Chema Perry Work Phone: [facility] 01-20-2023 09:09-0400 Systolic blood pressure 108 mm[Hg] Dr. Chema Perry Work Phone: [facility] 01-15-2023 13:53-0400 Body height 149.[address] Chema Perry Work Phone: [facility] 01-15-2023 13:53-0400 Body mass index (BMI) [Ratio] 23.1 kg/m2 Dr. Chema Perry Work Phone: [facility] 01-15-2023 13:53-0400 Body temperature 97.4 [degF] Dr. Chema Perry Work Phone: [facility] 01-15-2023 13:53-0400 Body weight 51.[address] Chema Perry Work Phone: [facility] 01-15-2023 13:53-0400 Diastolic blood pressure 74 mm[Hg] Dr. Chema Perry Work Phone: [facility] 01-15-2023 13:53-0400 Heart rate 90 /min Dr. Chema Perry Work Phone: [facility] 01-15-2023 13:53-0400 Respiratory rate 17 /min Dr. Chema Perry Work Phone: [facility] 01-15-2023 13:53-0400 SaO2% (BldA) [Mass fraction] 97 % Dr. Chema Perry Work Phone: [facility] 01-15-2023 13:53-0400 Systolic blood pressure 130 mm[Hg] Dr. Chema Perry Work Phone: [facility] 01-08-2023 11:45-0400 Body mass index (BMI) [Ratio] 22.6 kg/m2 Dr. Chema Perry Work Phone: [facility] 01-08-2023 11:45-0400 Body weight 50.[address] Chema Perry Work Phone: [facility] 01-08-2023 11:45-0400 Diastolic blood pressure 71 mm[Hg] Dr. Chema Perry Work Phone: [facility] 01-08-2023 11:45-0400 Heart rate 72 /min Dr. Chema Perry Work Phone: [facility] 01-08-2023 11:45-0400 Respiratory rate 16 /min Dr. Chema Perry Work Phone: [facility] 01-08-2023 11:45-0400 Systolic blood pressure 110 mm[Hg] Dr. Chema Perry Work Phone: [facility] 01-02-2023 14:30-0400 Body mass index (BMI) [Ratio] 22.8 kg/m2 Dr. Chema Perry Work Phone: [facility] 01-02-2023 14:30-0400 Body temperature 97.8 [degF] Dr. Chema Perry Work Phone: [facility] 01-02-2023 14:30-0400 Body weight 51.[address] Chema Perry Work Phone: [facility] 01-02-2023 14:30-0400 Diastolic blood pressure 74 mm[Hg] Dr. Chema Perry Work Phone: [facility] 01-02-2023 14:30-0400 Heart rate 82 /min Dr. Chema Perry Work Phone: [facility] 01-02-2023 14:30-0400 Respiratory rate 16 /min Dr. Chema Perry Work Phone: [facility] 01-02-2023 14:30-0400 SaO2% (BldA) [Mass fraction] 94 % Dr. Chema Perry Work Phone: [facility] 01-02-2023 14:30-0400 Systolic blood pressure 128 mm[Hg] Dr. Chema Perry Work Phone: [facility] 01-01-2023 11:15-0400 Body mass index (BMI) [Ratio] 22.2 kg/m2 Dr. Cheam Perry Work Phone: [facility] 01-01-2023 11:15-0400 Body temperature 97.6 [degF] Dr. Chema Perry Work Phone: [facility] 01-01-2023 11:15-0400 Body weight 49.[address] Chema Perry Work Phone: [facility] 01-01-2023 11:15-0400 Diastolic blood pressure 77 mm[Hg] Dr. Chema Perry Work Phone: [facility] 01-01-2023 11:15-0400 Heart rate 80 /min Dr. Chema Perry Work Phone: [facility] 01-01-2023 11:15-0400 Respiratory rate 18 /min Dr. Chema Perry Work Phone: [facility] 01-01-2023 11:15-0400 SaO2% (BldA) [Mass fraction] 93 % Dr. Chema Perry Work Phone: [facility] 01-01-2023 11:15-0400 Systolic blood pressure 124 mm[Hg] Dr. Chema Perry Work Phone: [facility] 12-25-2022 14:04-0400 Body temperature 98.3 [degF] Dr. Chema Perry Work Phone: [facility] 12-25-2022 14:04-0400 Diastolic blood pressure 72 mm[Hg] Dr. Chema Perry Work Phone: [facility] 12-25-2022 14:04-0400 Heart rate 74 /min Dr. Chema Perry Work Phone: [facility] 12-25-2022 14:04-0400 Respiratory rate 17 /min Dr. Chema Perry Work Phone: [facility] 12-25-2022 14:04-0400 SaO2% (BldA) [Mass fraction] 91 % Dr. Chema Perry Work Phone: [facility] 12-25-2022 14:04-0400 Systolic blood pressure 116 mm[Hg] Dr. Chema Perry Work Phone: [facility] 11-23-2022 11:14-0400 Body height 149.[address] Chema Perry Work Phone: [facility] 11-23-2022 11:14-0400 Body mass index (BMI) [Ratio] 23 kg/m2 Dr. Chema Perry Work Phone: [facility] 11-23-2022 11:14-0400 Body temperature 97.8 [degF] Dr. Chema Perry Work Phone: [facility] 11-23-2022 11:14-0400 Body weight 51.[address] Chema Perry Work Phone: [facility] 11-13-2022 12:59-0400 Body weight 49.9 kg Laisha Lizarraga APRN.[employer] ASSOCIATE ATTORNEY Work Phone: [facility] 11-13-2022 12:59-0400 Diastolic blood pressure 69 mm[Hg] Laisha Lizarraga APRN.TAX ASSOCIATE ATTORNEY Work Phone: [facility] 11-13-2022 12:59-0400 Heart rate 77 /min Laisha Lizarraga APRN.TAX ASSOCIATE ATTORNEY Work Phone: [facility] 11-13-2022 12:59-0400 Systolic blood pressure 113 mm[Hg] Laisha Sarah STEPHENS Work Phone: [facility] 10-23-2022 13:11-0500 Body temperature 98.5 [degF] Dr. Chema Perry Work Phone: [facility] 10-23-2022 13:11-0500 Diastolic blood pressure 78 mm[Hg] Dr. Chema Perry Work Phone: [facility] 10-23-2022 13:11-0500 Heart rate 76 /min Dr. Chema Perry Work Phone: [facility] 10-23-2022 13:11-0500 Respiratory rate 14 /min Dr. Chema Perry Work Phone: [facility] 10-23-2022 13:11-0500 SaO2% (BldA) [Mass fraction] 98 % Dr. Chema Perry Work Phone: [facility] 10-23-2022 13:11-0500 Systolic blood pressure 122 mm[Hg] Dr. Chema Perry Work Phone: [facility] 10-21-2022 13:08-0500 Body temperature 98.2 [degF] Dr. Chema Perry Work Phone: [facility] 10-21-2022 13:08-0500 Body weight 54.[address] Chema Perry Work Phone: [facility] 10-21-2022 13:08-0500 Diastolic blood pressure 74 mm[Hg] Dr. Chema Perry Work Phone: [facility] 10-21-2022 13:08-0500 Heart rate 87 /min Dr. Chema Perry Work Phone: [facility] 10-21-2022 13:08-0500 Respiratory rate 16 /min Dr. Chema Perry Work Phone: [facility] 10-21-2022 13:08-0500 SaO2% (BldA) [Mass fraction] 93 % Dr. Chema Perry Work Phone: [facility] 10-21-2022 13:08-0500 Systolic blood pressure 128 mm[Hg] Dr. Chema Perry Work Phone: [facility] 10-16-2022 17:21-0500 Body height 149.[address] Chema Perry Work Phone: [facility] 10-16-2022 17:21-0500 Body mass index (BMI) [Ratio] 24.1 kg/m2 Dr. Chema Perry Work Phone: [facility] 10-16-2022 17:21-0500 Body temperature 98.2 [degF] Dr. Chema Perry Work Phone: [facility] 10-16-2022 17:21-0500 Body weight 54.[address] Chema Perry Work Phone: [facility] 10-16-2022 17:21-0500 Diastolic blood pressure 92 mm[Hg] Dr. Chema Perry Work Phone: [facility] 10-16-2022 17:21-0500 Heart rate 81 /min Dr. Chema Perry Work Phone: [facility] 10-16-2022 17:21-0500 Respiratory rate 14 /min Dr. Chema Perry Work Phone: [facility] 10-16-2022 17:21-0500 SaO2% (BldA) [Mass fraction] 94 % Dr. Chema Perry Work Phone: [facility] 10-16-2022 17:21-0500 Systolic blood pressure 160 mm[Hg] Dr. Chema Perry Work Phone: [facility] 09-21-2022 10:53-0500 Body temperature 98.2 [degF] Dr. Chema Perry Work Phone: [facility] 09-21-2022 10:53-0500 Diastolic blood pressure 60 mm[Hg] Dr. Chema Perry Work Phone: [facility] 09-21-2022 10:53-0500 Heart rate 83 /min Dr. Chema Perry Work Phone: [facility] 09-21-2022 10:53-0500 Respiratory rate 14 /min Dr. Chema Perry Work Phone: [facility] 09-21-2022 10:53-0500 SaO2% (BldA) [Mass fraction] 95 % Dr. Chema Perry Work Phone: [facility] 09-21-2022 10:53-0500 Systolic blood pressure 104 mm[Hg] Dr. Chema Perry Work Phone: [facility] 07-24-2022 15:46-0500 Body temperature 96.8 [degF] Dr. Chema Perry Work Phone: [facility] 07-24-2022 15:46-0500 Body weight 56.[address] Chema Perry Work Phone: [facility] 07-24-2022 15:46-0500 Diastolic blood pressure 86 mm[Hg] Dr. Chema Perry Work Phone: [facility] 07-24-2022 15:46-0500 Heart rate 90 /min Dr. Chema Perry Work Phone: [facility] 07-24-2022 15:46-0500 Respiratory rate 16 /min Dr. Chema Perry Work Phone: [facility] 07-24-2022 15:46-0500 SaO2% (BldA) [Mass fraction] 91 % Dr. Cheam Perry Work Phone: [facility] 07-24-2022 15:46-0500 Systolic blood pressure 134 mm[Hg] Dr. Chema Peryr Work Phone: [facility] 07-22-2022 14:41-0500 Body height 149.[address] Arun Ramos Work Phone: [facility] 07-22-2022 14:41-0500 Body mass index (BMI) [Ratio] 25.2 kg/m2 Dr. Arun Ramos Work Phone: [facility] 07-22-2022 14:41-0500 Body temperature 98 [degF] Dr. Arun Ramos Work Phone: [facility] 07-22-2022 14:41-0500 Body weight 56.[address] Arun Ramos Work Phone: [facility] 07-22-2022 14:41-0500 Diastolic blood pressure 67 mm[Hg] Dr. Arun Ramos Work Phone: [phone] [place] [address] 07-22-2022 14:41-0500 Heart rate 90 /min Dr. Arun Ramos Work Phone: [facility] 07-22-2022 14:41-0500 Respiratory rate 18 /min Dr. Arun Ramos Work Phone: [facility] 07-22-2022 14:41-0500 SaO2% (BldA) [Mass fraction] 95 % Dr. Arun Ramos Work Phone: [facility] 07-22-2022 14:41-0500 Systolic blood pressure 109 mm[Hg] Dr. Arun Rmaos Work Phone: [facility] 07-13-2022 03:28-0500 Diastolic blood pressure 68 mm[Hg] Dr. Arun Ramos Work Phone: [facility] 07-13-2022 03:28-0500 Heart rate 78 /min Dr. Arun Ramos Work Phone: [facility] 07-13-2022 03:28-0500 Respiratory rate 16 /min Dr. Arun Ramos Work Phone: [facility] 07-13-2022 03:28-0500 SaO2% (BldA) [Mass fraction] 97 % Dr. Arun Ramos Work Phone: [facility] 07-13-2022 03:28-0500 Systolic blood pressure 135 mm[Hg] Dr. Arun Ramos Work Phone: [facility] 07-13-2022 00:21-0500 Body height 149.[address] Arun Ramos Work Phone: [facility] Work Phone: 07-13-2022 00:21-0500 Body mass index (BMI) [Ratio] 25.7 kg/m2 Dr. Arun Ramos Work Phone: [facility] 07-13-2022 00:21-0500 Body temperature 97.8 [degF] Dr. Arun Ramos Work Phone: [facility] 07-13-2022 00:21-0500 Body weight 57.[address] Arun Ramos Work Phone: [phone] [place] [address] 07-07-2022 09:10-0500 Body mass index (BMI) [Ratio] 24.4 kg/m2 Dr. Arun Ramos Work Phone: [facility] 07-07-2022 09:10-0500 Body temperature 99.2 [degF] Dr. Arun Ramos Work Phone: [facility] 07-07-2022 09:10-0500 Body weight 54.[address] Arun Ramos Work Phone: [facility] 07-07-2022 09:10-0500 Diastolic blood pressure 70 mm[Hg] Dr. Arun Ramos Work Phone: [phone] [place] [address] 07-07-2022 09:10-0500 Heart rate 81 /min Dr. Arun Ramos Work Phone: [facility] 07-07-2022 09:10-0500 Respiratory rate 16 /min Dr. Arun Ramos Work Phone: [facility] 07-07-2022 09:10-0500 SaO2% (BldA) [Mass fraction] 96 % Dr. Arun Ramos Work Phone: [facility] 07-07-2022 09:10-0500 Systolic blood pressure 118 mm[Hg] Dr. Arun Ramos Work Phone: [facility] 07-04-2022 13:35-0500 Body temperature 97.9 [degF] Dr. Arun Ramos Work Phone: [phone] [place] [address] 07-04-2022 13:35-0500 Body weight 56.[address] Arun Ramos Work Phone: 1(349)[phone] [place] [address] 07-04-2022 13:35-0500 Diastolic blood pressure 81 mm[Hg] Dr. Arun Ramos Work Phone: 9(785)592-409531 [place] [address] 07-04-2022 13:35-0500 Heart rate 87 /min Dr. Arun Ramos Work Phone: 6(899)609-889731 [place] [address] 07-04-2022 13:35-0500 Respiratory rate 18 /min Dr. Arun Ramos Work Phone: 1(321)791-729331 [place] [address] 07-04-2022 13:35-0500 SaO2% (BldA) [Mass fraction] 90 % Dr. Arun Ramos Work Phone: [facility] 07-04-2022 13:35-0500 Systolic blood pressure 132 mm[Hg] Dr. Arun Ramos Work Phone: [facility] 06-25-2022 13:14-0500 Body mass index (BMI) [Ratio] 25.2 kg/m2 Dr. Arun Ramos Work Phone: [facility] 06-25-2022 13:14-0500 Body temperature 97.1 [degF] Dr. Arun Ramos Work Phone: [facility] 06-25-2022 13:14-0500 Body weight 56.[address] Arun Ramos Work Phone: [facility] 06-25-2022 13:14-0500 Diastolic blood pressure 70 mm[Hg] Dr. Arun Ramos Work Phone: [facility] 06-25-2022 13:14-0500 Heart rate 78 /min Dr. Arnu Ramos Work Phone: [facility] 06-25-2022 13:14-0500 Respiratory rate 18 /min Dr. Arun Ramos Work Phone: [facility] 06-25-2022 13:14-0500 SaO2% (BldA) [Mass fraction] 94 % Dr. Arun Ramos Work Phone: [facility] 06-25-2022 13:14-0500 Systolic blood pressure 122 mm[Hg] Dr. Arun Ramos Work Phone: 0(267)891-806231 [place] [address] 06-07-2022 13:04-0400 Body mass index (BMI) [Ratio] 24.7 kg/m2 Dr. Arun Ramos Work Phone: 8(441)600-721731 [place] [address] 06-07-2022 13:04-0400 Body weight 55.[address] Arun Ramos Work Phone: 2(168)347-547031 [place] [address] 06-07-2022 13:04-0400 Diastolic blood pressure 70 mm[Hg] Dr. Arun Ramos Work Phone: [facility] 06-07-2022 13:04-0400 Heart rate 80 /min Dr. Arun Ramos Work Phone: [facility] 06-07-2022 13:04-0400 Respiratory rate 18 /min Dr. Arun Ramos Work Phone: [facility] 06-07-2022 13:04-0400 Systolic blood pressure 122 mm[Hg] Dr. Arun Ramos Work Phone: [facility] 05-13-2022 14:11-0400 Body temperature 98 [degF] Dr. Arun Ramos Work Phone: [facility] Work Phone: 05-13-2022 14:11-0400 Body weight 55.[address] Arun Ramos Work Phone: [facility] Work Phone: 05-13-2022 14:11-0400 Diastolic blood pressure 89 mm[Hg] Dr. Arun Ramos Work Phone: [facility] Work Phone: 05-13-2022 14:11-0400 Heart rate 87 /min Dr. Arun Ramos Work Phone: [facility] Work Phone: 05-13-2022 14:11-0400 Respiratory rate 16 /min Dr. Arun Ramos Work Phone: [facility] Work Phone: 05-13-2022 14:11-0400 SaO2% (BldA) [Mass fraction] 95 % Dr. Arun Ramos Work Phone: [facility] Work Phone: 05-13-2022 14:11-0400 Systolic blood pressure 149 mm[Hg] Dr. Arun Ramos Work Phone: [facility] Work Phone: 04-25-2022 11:37-0400 Body temperature 97 [degF] Dr. Arun Ramos Work Phone: [facility] Work Phone: 04-25-2022 11:37-0400 Body weight 56.[address] Arun Ramos Work Phone: [facility] Work Phone: 04-25-2022 11:37-0400 Diastolic blood pressure 77 mm[Hg] Dr. Arun Ramos Work Phone: [facility] Work Phone: 04-25-2022 11:37-0400 Heart rate 76 /min Dr. Arun Ramos Work Phone: [facility] Work Phone: 04-25-2022 11:37-0400 Respiratory rate 18 /min Dr. Arun Ramos Work Phone: [facility] Work Phone: 04-25-2022 11:37-0400 SaO2% (BldA) [Mass fraction] 90 % Dr. Arun Ramos Work Phone: [facility] Work Phone: 04-25-2022 11:37-0400 Systolic blood pressure 131 mm[Hg] Dr. Arun Ramos Work Phone: [facility] Work Phone: 04-11-2022 12:48-0400 Body weight 53.07 kg Laisha Lizarraga APRN.[employer] ASSOC[employer]ATE ATTORNEY Work Phone: [facility] 04-11-2022 12:48-0400 Diastolic blood pressure 77 mm[Hg] Laisha Lizarraga APRN.[employer] ASSOC[employer]ATE ATTORNEY Work Phone: [facility] 04-11-2022 12:48-0400 Heart rate 75 /min Laisha Lizarraga APRN.[employer] ASSOC[employer]ATE ATTORNEY Work Phone: [facility] 04-11-2022 12:48-0400 Systolic blood pressure 117 mm[Hg] Laisha Lizarraga APRN.[employer] ASSOCIATE ATTORNEY Work Phone: [facility] 03-27-2022 05:59-0400 Body mass index (BMI) [Ratio] 25.1 kg/m2 Dr. Arun Ramos Work Phone: [facility] Work Phone: 03-27-2022 05:59-0400 Body temperature 98.6 [degF] Dr. Arun Ramos Work Phone: [facility] Work Phone: 03-27-2022 05:59-0400 Body weight 56.[address] Arun Ramos Work Phone: [facility] Work Phone: 03-27-2022 05:59-0400 Diastolic blood pressure 68 mm[Hg] Dr. Arun Ramos Work Phone: [facility] Work Phone: 03-27-2022 05:59-0400 Heart rate 90 /min Dr. Arun Ramos Work Phone: [facility] Work Phone: 03-27-2022 05:59-0400 Respiratory rate 16 /min Dr. Arun Ramos Work Phone: [facility] Work Phone: 03-27-2022 05:59-0400 SaO2% (BldA) [Mass fraction] 92 % Dr. Arun Ramos Work Phone: [facility] Work Phone: 03-27-2022 05:59-0400 Systolic blood pressure 111 mm[Hg] Dr. Arun Ramos Work Phone: [facility] Work Phone: 03-21-2022 14:11-0400 Body mass index (BMI) [Ratio] 24.9 kg/m2 Dr. Arun Ramos Work Phone: [facility] Work Phone: 03-21-2022 14:11-0400 Body temperature 97.6 [degF] Dr. Arun Ramos Work Phone: [facility] Work Phone: 03-21-2022 14:11-0400 Body weight 56.[address] Arun Ramos Work Phone: [facility] Work Phone: 03-21-2022 14:11-0400 Diastolic blood pressure 82 mm[Hg] Dr. Arun Ramos Work Phone: [facility] Work Phone: 03-21-2022 14:11-0400 Heart rate 80 /min Dr. Arun Ramos Work Phone: [facility] Work Phone: 03-21-2022 14:11-0400 Respiratory rate 16 /min Dr. Arun Ramos Work Phone: [facility] Work Phone: 03-21-2022 14:11-0400 SaO2% (BldA) [Mass fraction] 98 % Dr. rAun Ramos Work Phone: [facility] Work Phone: 03-21-2022 14:11-0400 Systolic blood pressure 142 mm[Hg] Dr. Aurn Ramos Work Phone: [facility] Work Phone: 03-15-2022 19:42-0400 Body height 149.[address] Arun Ramos Work Phone: [facility] Work Phone: 03-15-2022 19:42-0400 Body mass index (BMI) [Ratio] 26.4 kg/m2 Dr. Arun Ramos Work Phone: [facility] Work Phone: 03-15-2022 19:42-0400 Body temperature 98 [degF] Dr. Arun Ramos Work Phone: [facility] Work Phone: 03-15-2022 19:42-0400 Body weight 59.[address] Arun Ramos Work Phone: [facility] Work Phone: 03-15-2022 19:42-0400 Diastolic blood pressure 83 mm[Hg] Dr. Arun Ramos Work Phone: [facility] Work Phone: 03-15-2022 19:42-0400 Heart rate 84 /min Dr. Arun Ramos Work Phone: [facility] Work Phone: 03-15-2022 19:42-0400 Respiratory rate 18 /min Dr. Arun Ramos Work Phone: [facility] Work Phone: 03-15-2022 19:42-0400 SaO2% (BldA) [Mass fraction] 93 % Dr. Arun Ramos Work Phone: [facility] Work Phone: 03-15-2022 19:42-0400 Systolic blood pressure 144 mm[Hg] Dr. Arun Ramos Work Phone: [facility] Work Phone: 02-15-2022 17:00-0400 Respiratory rate 14 /min Dr. Arun Ramos Work Phone: [facility] Work Phone: 02-15-2022 17:00-0400 SaO2% (BldA) [Mass fraction] 99 % Dr. Arun Ramos Work Phone: [facility] Work Phone: 02-15-2022 15:00-0400 Diastolic blood pressure 81 mm[Hg] Dr. Arun Ramos Work Phone: [facility] Work Phone: 02-15-2022 15:00-0400 Heart rate 67 /min Dr. Arun Ramos Work Phone: [facility] Work Phone: 02-15-2022 15:00-0400 Systolic blood pressure 122 mm[Hg] Dr. Arun Ramos Work Phone: [facility] Work Phone: 02-15-2022 09:48-0400 Body height 149.[address] Arun Ramos Work Phone: [facility] Work Phone: 02-15-2022 09:48-0400 Body mass index (BMI) [Ratio] 24.9 kg/m2 Dr. Arun Ramos Work Phone: [facility] Work Phone: 02-15-2022 09:48-0400 Body temperature 98.3 [degF] Dr. Arun Ramos Work Phone: [facility] Work Phone: 02-15-2022 09:48-0400 Body weight [address] Arun Ramos Work Phone: [facility] Work Phone: 01-23-2022 10:42-0400 Body weight 53.98 kg Mitchel Muse MD Work Phone: [facility] 01-23-2022 10:42-0400 Diastolic blood pressure 72 mm[Hg] Mitchel Muse MD Work Phone: [facility] 01-23-2022 10:42-0400 Heart rate 82 /min Mitchel Muse MD Work Phone: [facility] 01-23-2022 10:42-0400 Systolic blood pressure 114 mm[Hg] Mitchel Muse MD Work Phone: [facility] 01-10-2022 13:19-0400 Body height 152.[address] Arun Ramos Work Phone: [facility] Work Phone: 01-10-2022 13:19-0400 Body mass index (BMI) [Ratio] 23.4 kg/m2 Dr. Arun Ramos Work Phone: [facility] Work Phone: 01-10-2022 13:19-0400 Body temperature 97.4 [degF] Dr. Arun Ramos Work Phone: [facility] Work Phone: 01-10-2022 13:19-0400 Body weight 54.[address] Arun Ramos Work Phone: [facility] Work Phone: 01-10-2022 13:19-0400 Diastolic blood pressure 76 mm[Hg] Dr. Arun Ramos Work Phone: [facility] Work Phone: 01-10-2022 13:19-0400 Heart rate 84 /min Dr. Arun Ramos Work Phone: [facility] Work Phone: 01-10-2022 13:19-0400 Respiratory rate 16 /min Dr. Arun Ramos Work Phone: [facility] Work Phone: 01-10-2022 13:19-0400 SaO2% (BldA) [Mass fraction] 92 % Dr. Arun Ramos Work Phone: [facility] Work Phone: 01-10-2022 13:19-0400 Systolic blood pressure 115 mm[Hg] Dr. Arun Ramos Work Phone: [facility] Work Phone: 11-13-2021 11:13-0400 Body weight 56.25 kg Laisha Lizarraga APRN.[employer] ASSOC[employer] ATT[employer]NEY Work Phone: [facility] 11-13-2021 11:13-0400 Diastolic blood pressure 68 mm[Hg] Laisha Lizarraga APRN.[employer] ASSOC[employer]ATE ATTORNEY Work Phone: [facility] 11-13-2021 11:13-0400 Heart rate 83 /min Laisha Lizarraga APRN.[employer] ASSOCIATE ATTORNEY Work Phone: [facility] 11-13-2021 11:13-0400 Systolic blood pressure 125 mm[Hg] Laisha Lizarraga APRN.[employer] ASSOCIATE ATTORNEY Work Phone: [facility] 11-07-2021 14:12-0400 Body height 149.[address] Arun Ramos Work Phone: [facility] Work Phone: 11-07-2021 14:12-0400 Body mass index (BMI) [Ratio] 23.2 kg/m2 Dr. Arun Ramos Work Phone: [facility] Work Phone: 11-07-2021 14:12-0400 Body temperature 97.2 [degF] Dr. Arun Ramos Work Phone: [facility] Work Phone: 11-07-2021 14:12-0400 Body weight 52.[address] Arun Ramso Work Phone: [facility] Work Phone: 11-07-2021 14:12-0400 Diastolic blood pressure 81 mm[Hg] Dr. Arun Ramos Work Phone: [facility] Work Phone: 11-07-2021 14:12-0400 Heart rate 100 /min Dr. Arun Ramos Work Phone: [facility] Work Phone: 11-07-2021 14:12-0400 Respiratory rate 19 /min Dr. Arun Ramos Work Phone: [facility] Work Phone: 11-07-2021 14:12-0400 SaO2% (BldA) [Mass fraction] 91 % Dr. Arun Ramos Work Phone: [facility] Work Phone: 11-07-2021 14:12-0400 Systolic blood pressure 110 mm[Hg] Dr. Arun Ramos Work Phone: [facility] Work Phone: 10-08-2021 19:03-0500 Body temperature 97.7 [degF] Dr. Arnu Ramos Work Phone: [facility] Work Phone: 10-08-2021 19:03-0500 Diastolic blood pressure 88 mm[Hg] Dr. Arun Ramos Work Phone: [facility] Work Phone: 10-08-2021 19:03-0500 Heart rate 81 /min Dr. Arun Ramos Work Phone: [facility] Work Phone: 10-08-2021 19:03-0500 Respiratory rate 20 /min Dr. Arun Ramos Work Phone: [facility] Work Phone: 10-08-2021 19:03-0500 SaO2% (BldA) [Mass fraction] 92 % Dr. Arun Ramos Work Phone: [facility] Work Phone: 10-08-2021 19:03-0500 Systolic blood pressure 134 mm[Hg] Dr. Arun Ramos Work Phone: [facility] Work Phone: 10-06-2021 15:46-0500 Body weight 55.[address] Arun Ramos Work Phone: [facility] Work Phone: 10-05-2021 17:32-0500 Body mass index (BMI) [Ratio] 24.8 kg/m2 Dr. Arun Ramos Work Phone: [facility] Work Phone: 10-04-2021 10:45-0500 Body temperature 97.3 [degF] Dr. Arun Ramos Work Phone: [facility] Work Phone: 10-04-2021 10:45-0500 Diastolic blood pressure 80 mm[Hg] Dr. Arun Ramos Work Phone: [facility] Work Phone: 10-04-2021 10:45-0500 Heart rate 90 /min Dr. Arun Ramos Work Phone: [facility] Work Phone: 10-04-2021 10:45-0500 Respiratory rate 20 /min Dr. Arun Ramos Work Phone: [facility] Work Phone: 10-04-2021 10:45-0500 SaO2% (BldA) [Mass fraction] 92 % Dr. Arun Ramos Work Phone: [facility] Work Phone: 10-04-2021 10:45-0500 Systolic blood pressure 134 mm[Hg] Dr. Arun Ramos Work Phone: [facility] Work Phone: 10-02-2021 09:01-0500 Body weight 57.[address] Arun Ramos Work Phone: [facility] Work Phone: 09-27-2021 19:53-0500 Inhaled oxygen concentration 21 % Dr. Arun Ramos Work Phone: [facility] Work Phone: 09-04-2021 12:15-0500 Body mass index (BMI) [Ratio] 27 kg/m2 Dr. Arun Ramos Work Phone: [facility] Work Phone: 09-04-2021 07:30-0500 Body temperature 97.8 [degF] Dr. Arun Ramos Work Phone: [facility] Work Phone: 09-04-2021 07:30-0500 Diastolic blood pressure 85 mm[Hg] Dr. Arun Ramos Work Phone: [facility] Work Phone: 09-04-2021 07:30-0500 Heart rate 79 /min Dr. Arun Ramos Work Phone: [facility] Work Phone: 09-04-2021 07:30-0500 Respiratory rate 18 /min Dr. Arun Ramos Work Phone: [facility] Work Phone: 09-04-2021 07:30-0500 SaO2% (BldA) [Mass fraction] 94 % Dr. Arun Ramos Work Phone: [facility] Work Phone: 09-04-2021 07:30-0500 Systolic blood pressure 154 mm[Hg] Dr. Arun Ramos Work Phone: [facility] Work Phone: 09-02-2021 18:34-0500 Body mass index (BMI) [Ratio] 27.3 kg/m2 Dr. Arun Ramos Work Phone: [facility] Work Phone: 09-02-2021 18:34-0500 Body weight 61.[address] Arun Ramos Work Phone: [facility] Work Phone: 09-01-2021 17:54-0500 Diastolic blood pressure 85 mm[Hg] Dr. Arun Ramos Work Phone: [facility] Work Phone: 09-01-2021 17:54-0500 Heart rate 74 /min Dr. Arun Ramos Work Phone: [facility] Work Phone: 09-01-2021 17:54-0500 Respiratory rate 19 /min Dr. Arun Ramos Work Phone: [facility] Work Phone: 09-01-2021 17:54-0500 SaO2% (BldA) [Mass fraction] 92 % Dr. Arun Ramos Work Phone: [facility] Work Phone: 09-01-2021 17:54-0500 Systolic blood pressure 156 mm[Hg] Dr. Arun Ramos Work Phone: [facility] Work Phone: 09-01-2021 16:32-0500 Body mass index (BMI) [Ratio] 24 kg/m2 Dr. Arun Ramos Work Phone: [facility] Work Phone: 09-01-2021 16:32-0500 Body temperature 98.5 [degF] Dr. Arun Ramos Work Phone: [facility] Work Phone: 09-01-2021 16:32-0500 Body weight 63.[address] Arun Ramos Work Phone: [facility] Work Phone: 08-09-2021 11:59-0500 Body mass index (BMI) [Ratio] 28.3 kg/m2 Dr. Arun Ramos Work Phone: [facility] Work Phone: 08-09-2021 11:59-0500 Body temperature 97.5 [degF] Dr. Arun Ramos Work Phone: [facility] Work Phone: 08-09-2021 11:59-0500 Body weight 63.[address] Arun Ramos Work Phone: [facility] Work Phone: 08-09-2021 11:59-0500 Diastolic blood pressure 86 mm[Hg] Dr. Arun Ramos Work Phone: [facility] Work Phone: 08-09-2021 11:59-0500 Heart rate 80 /min Dr. Arun Ramos Work Phone: [facility] Work Phone: 08-09-2021 11:59-0500 Respiratory rate 16 /min Dr. Arun Ramos Work Phone: [facility] Work Phone: 08-09-2021 11:59-0500 SaO2% (BldA) [Mass fraction] 98 % Dr. Arun Ramos Work Phone: [facility] Work Phone: 08-09-2021 11:59-0500 Systolic blood pressure 136 mm[Hg] Dr. Arun Ramos Work Phone: [facility] Work Phone: Encounters Encounter Date Encounter Type Care Provider Facility Start: 05-11-2025 jay jay Perry Facility:[facility] Start: 05-03-2025 End: 05-03-2025 Dr. Chema Perry MD Work Phone: -Emergency Department Work Phone: Start: 05-03-2025 End: 05-03-2025 Emergency department patient visit Dr. Chema Perry MD Work Phone: -Emergency Department Start: 05-02-2025 End: 05-02-2025 Office outpatient visit 15 minutes Nahum Hernandez MD Work Phone: [facility] Comment on above: Laceration of left lower leg, initial en counter (Primary Dx) Start: 05-02-2025 End: 05-02-2025 ambulatory NAHUM HERNANDEZ Facility:[facility] Start: 04-25-2025 End: 04-25-2025 Telephone encounter Sourav Marcial MD Work Phone: Cardiology Comment on above: Opened In Error Refill Request Start: 04-17-2025 ambulatory [facility] Start: 04-17-2025 End: 04-17-2025 Subsequent hospital visit by physician [facility] (1.5t[facility] Comment on above: 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 Janis Bhandari MD -[facility] Work Phone: Start: 03-22-2025 End: 03-22-[address] 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 Chema Perry MD -[facility] Work Phone: Start: 03-14-2025 End: 03-14-[address] Chema Perry MD Work Phone: -[facility] Start: 03-12-2025 End: 03-14-2025 ambulatory Laisha Sarah ROSASTAX ASSOCIATE ATTORNEY Work Phone: Neurology Comment on above: Results ER Visit Start: 03-11-2025 End: 03-11-2025 Dr. Chema Perry MD Work Phone: -Emergency Department Work Phone: Start: 03-11-2025 End: 03-11-2025 Emergency department patient visit Dr. Chema Perry MD Work Phone: -Emergency Department Start: 03-11-2025 End: 03-15-2025 ambulatory Laisha Lizarraga APRN.[employer] ASSOCIATE ATTORNEY Work Phone: Neurology Start: 03-11-2025 End: 03-15-2025 Patient encounter procedure Laisha Sarah MD PHYSICIAN DERMATOLOGIST.[employer]X ASSOCIATE ATTORNEY Work Phone: Neurology Comment on above: Request to Reschedule Mar Appointment Start: 02-22-2025 End: 02-22-[address] Chema Perry MD Work Phone: -[facility] Start: 02-22-2025 End: 02-22-2025 Dr. Rolando Griffith MD -[facility] Start: 02-15-2025 End: 02-15-[address] Chema Perry MD Work Phone: -[facility] Start: 02-15-2025 End: 02-15-2025 Dr. Bryant Melendrez MD -[facility] Work Phone: Start: 02-14-2025 ambulatory [facility] Start: 02-14-2025 [facility]-C -[facility] Start: 02-11-2025 End: 02-11-[address] Chema Perry MD Work Phone: [facility] Start: 02-11-2025 End: 02-11-2025 [facility] Work Phone: Start: 02-10-2025 End: 02-10-[address] Chema Perry MD Work Phone: [facility] Start: 02-10-2025 End: 02-10-2025 Bryant Melendrez MD -[facility] Start: 02-09-2025 End: 02-09-[address] Chema Perry MD Work Phone: [facility] Start: 02-09-2025 End: 02-09-2025 [facility] Work Phone: Start: 02-08-2025 Non-patient / Non-visit Dr. [facility] Work Phone: Start: 02-08-2025 [facility] Work Phone: Start: 02-07-2025 End: 02-07-2025 ambulatory Vincent Camp [facility] Start: 02-07-2025 End: 02-07-2025 Dr. Rolando Griffith MD -[facility] Work Phone: Start: 02-07-2025 Non-patient / Non-visit [facility] Start: 02-07-2025 [facility] Start: 02-07-2025 Non-patient / Non-visit Dr. [facility] Work Phone: Start: 02-07-2025 Dr. Vincent Camp DO [facility] Work Phone: Start: 02-06-2025 Non-patient / Non-visit Dr. Vincent Camp DO [facility] Work Phone: Start: 02-06-2025 Dr. Vincent Camp DO [facility] Work Phone: Start: 02-06-2025 End: 02-08-2025 Evaluation and management of inpatient Dr. Vincent Camp DO [facility] Work Phone: Start: 02-06-2025 End: 02-08-[address] Chema Perry MD Work Phone: [facility] Work Phone: Start: 02-06-2025 End: 02-08-2025 ambulatory Damien Burleson Facility:[facility] Start: 02-06-2025 Non-patient / Non-visit Dr. Damien Burleson MD -[facility] Start: 02-06-2025 End: 02-08-2025 Dr. Vincent Camp DO [facility] Work Phone: Start: 02-03-2025 End: 02-03-2025 Isma Emilymaksim DO -Emergency Departmen t Work Phone: Start: 02-03-2025 End: 02-03-2025 Emergency department patient visit Dr. Chema Perry MD Work Phone: -Emergency Department Work Phone: Start: 02-01-2025 End: 02-01-[address] Chema Perry MD Work Phone: -Physical Therapy Start: 02-01-[address] Chema Perry MD -Physical Therapy Work Phone: Start: 02-01-2025 End: 02-01-2025 Dr. 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, psychotic disturbance, mood disturbance, or anxiety (HCC) (Primary Dx); Physical deconditioning; Gait instability; Fine motor impairment; Dizziness; Cognitive communication deficit; Idiopathic peripheral neuropathy; Restless legs syndrome Start: 12-23-2024 End: 12-23-2024 ambulatory LAISHA LIZARRAGA Facility:[facility] Start: 12-20-2024 End: 12-20-2024 Patient encounter [...] Start: 12-20-2024 End: 12-20-2024 ambulatory SOURAV MARCIAL Facility:[facility] Start: 12-19-2024 End: 12-19-2024 Patient encounter procedure Young VALENCIA Work Phone: [facility] Comment on above: Skin tear of right forearm without compl ication, initial encounter (Primary Dx) Start: 12-19-2024 End: 12-19-2024 ambulatory YOUNG LORD Facility:[facility] Start: 12-16-2024 End: 12-16-2024 Refill Sourav Marcial MD Work Phone: Cardiology Comment on above: Refill Request Start: 12-09-2024 End: 12-09-2024 ambulatory LUH DEAN Facility:[facility] Start: 12-03-2024 End: 12-03-2024 ambulatory ANILA DE PAZ Facility:[facility] Start: 12-03-2024 End: 12-03-2024 Patient encounter procedure Anila De Paz MD Work Phone: General Surgery Comment on above: Hiatal hernia (Primary Dx) Start: 11-26-2024 End: 11-26-2024 Patient encounter procedure Radha Hesson OTR/L Work Phone: [facility] Comment on above: Fine motor impairment (Primary Dx); Weakness; Lack of coordination; Decreased activities of daily living (ADL) Start: 11-26-2024 End: 11-26-2024 ambulatory Radha Hesson OTR/L Work Phone: [facility] Start: 11-19-2024 End: 11-19-2024 Patient encounter procedure Radha Hesson OTR/L Work Phone: [facility] [facility] Comment on above: Fine motor impairment (Primary Dx); Weakness; Lack of coordination Start: 11-19-2024 End: 11-19-2024 ambulatory Radha Hesson OTR/L Work Phone: [facility]ational [facility] Start: 11-17-2024 End: 11-17-2024 Orders Only Rauqel Null MD Work Phone: General Surgery Comment on above: Dilation of biliary tract (Primary Dx) Start: 11-15-2024 End: 11-17-2024 Evaluation and management of inpatient [facility] Facility:[facility] Start: 11-15-2024 End: 11-15-2024 Telephone encounter Taylor Forrest RN General Surgery Comment on above: Generalized abdominal pain (Primary Dx); Diarrhea, unspecified type Start: 11-12-2024 End: 11-12-2024 Patient encounter procedure Radha Hesson OTR/L Work Phone: [facility] Out[facility] Occupational Therapy Comment on above: Fine motor impairment (Primary Dx); Decreased activities of daily living (ADL); Lack of coordination; Weakness Start: 11-12-2024 End: 11-12-2024 ambulatory Radha Hesson OTR/L Work Phone: [facility]ational Therapy Start: 11-12-2024 End: 11-12-2024 Telephone encounter Pippa Fox RN General Surgery Start: 11-11-2024 End: 11-11-2024 [facility] [place] Start: 11-11-2024 End: 11-11-2024 Subsequent hospital visit by physician [facility] Cat Scan Comment on above: Nausea [R11.0] Start: 11-09-2024 End: 11-09-[address] Susan Emery DO Work Phone: [facility] Work Phone: Start: 11-09-2024 End: 11-09-[address] Chema Perry MD -Radiology, [facility] Work Phone: Start: 11-09-2024 End: 11-09-2024 Dr. Chema Perry MD -Radiology [facility] Work Phone: Start: 11-08-2024 End: 11-09-2024 [facility] [place]:[facility] Start: 11-08-2024 End: 11-08-2024 E-mail encounter from caregiver Taylor Forrest RN General Surgery Start: 11-08-2024 End: 11-08-2024 Follow-up encounter Taylor Forrest RN General Surgery Comment on above: Follow-up on Questions Start: 11-05-2024 End: 11-05-2024 Patient encounter procedure Radha Randhawaon OTR/L Work Phone: [facility] Outpatient Occupational Therapy Comment on above: Fine motor impairment (Primary Dx); Decreased activities of daily living (ADL); Lack of coordination; Weakness Start: 11-05-2024 End: 11-05-2024 ambulatory Radhasarina Randhawaon OTR/L Work Phone: [facility]ational Therapy Start: 11-03-2024 End: 11-03-2024 Patient encounter procedure Denice Jacobs JOSE Work Phone: Neurology Comment on above: Degeneration of intervertebral disc of l umbar region, unspecified whether pain present (Primary Dx); Left leg paresthesias; Right leg paresthesias; Ulnar neuropathy of right upper extremity Start: 11-03-2024 End: 11-03-2024 ambulatory DENICEJOSEPH JACOBS Facility:[facility] Start: 11-02-2024 End: 11-02-2024 Admission to same day surgery center Anila De Paz MD Work Phone: General Surgery Start: 11-02-2024 End: 11-02-2024 E-mail encounter from caregiver Anila De Paz MD Work Phone: General Surgery Start: 11-01-2024 End: 11-01-2024 ambulatory HUMZA CAMEJO Facility:[facility] Start: 11-01-2024 End: 11-01-2024 Patient encounter [...] 10-29-2024 End: 10-29-2024 ambulatory ANILA DE PAZ Facility:[facility] Start: 10-29-2024 End: 10-29-2024 Patient encounter procedure Radha Street OTR/L Work Phone: [facility] Out[facility] Occupational Therapy Comment on above: Decreased activities of daily living (AD L) (Primary Dx); Fine motor impairment; Lack of coordination; Weakness Start: 10-29-2024 End: 10-29-[address] OTR/L Work Phone: [facility]ational Therapy Start: 10-22-2024 End: 10-22-2024 Patient encounter procedure Sandra SUMNER -[facility] Work Phone: Start: 10-22-2024 End: 10-22-2024 ambulatory Chema Perry Facility:[facility] Start: 10-18-2024 End: 10-18-[address] Chema Perry MD Work Phone: [facility] Work Phone: Start: 10-18-2024 End: 10-18-[address] Chema Perry MD -Outpatient Breast Imaging Work Phone: Start: 10-17-2024 End: 10-18-2024 ambulatory Laisha Lizarraga APRN.CNP Work Phone: Neurology Comment on above: Primary Care Phyiscian (PCP) Start: 10-14-2024 End: 10-14-[address] Chema Perry MD -[facility] Work Phone: Start: 10-14-2024 End: 10-14-2024 ambulatory Chema Perry Facility:[facility] Start: 10-13-2024 End: 10-13-2024 ambulatory LAISHA LIZARRAGA Facility:[facility] Start: 10-13-2024 End: 10-13-2024 Office outpatient visit 40 minutes Laisha Lizarraga APRN.[employer]X ASSOCIATE ATTORNEY Work Phone: Neurology Comment on above: Mild [...] (Primary Dx) Start: 10-08-2024 End: 10-08-2024 ambulatory CHEMA PERRY Facility:[facility] Start: 09-20-2024 End: 09-23-2024 Evaluation and management of inpatient CHEMA PERRY Facility:[facility] Start: 09-18-2024 End: 09-18-2024 Emergency department patient visit Dr. Susan Emery DO -Emergency Department Work Phone: Start: 09-14-2024 End: 09-14-2024 ambulatory CHMEAAIDEN PERRY Facility:[facility] Start: 09-14-2024 Encounter for other preprocedural examination ANILA DE PAZ [facility] Start: 09-14-2024 End: 09-14-2024 Office consultation new/estab patient 80 min Pacc Drummond 1 Work Phone: Pre Anesthesia Comment on [...] Start: 09-14-2024 End: 09-14-2024 Preprocedural examination done Pac Drummond 1 Work Phone: [facility] Work Phone: Start: 09-14-2024 End: 09-14-2024 [facility] [place] Start: 09-13-2024 End: 09-13-2024 Orders Only Alisa Haile MD Work Phone: Gastroenterology Comment on above: Choledocholithiasis (Primary Dx) 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] Start: 09-10-2024 End: 09-10-2024 ambulatory DENICE [facility] Neurology Comment on above: EMG Start: 09-10-2024 End: 09-10-2024 Patient encounter procedure Emg 2 Neur [facility] (Max Weight: 850) Neurology Start: 09-09-2024 End: 09-09-2024 Telephone encounter Jacqueline Noland LPN General Surgery Start: 09-08-2024 End: 09-08-2024 Orders Only Susan Srinivasan MD Work Phone: General Surgery Comment on above: Dilated pancreatic duct (Primary Dx) UPDATED Pre-op Instr uctions Patient Update Globe Cleaner - O ther (Update on EUS orders ) Start: 09-07-2024 End: 09-07-2024 [facility] Facility:[facility] Start: 09-07-2024 End: 09-07-2024 Subsequent hospital visit by physician [facility] [employer] [facility] (I-Stat/1.5t) Work Phone: Radiology Comment [...] done Anila De Paz MD Work Phone: [facility] Start: 08-25-2024 End: 08-25-2024 ambulatory SOURAV MARCIAL Facility:[facility] Start: 08-25-2024 End: 08-25-2024 Admission to same day surgery center Taylor Forrest RN General Surgery Comment on above: Contact Information Start: 08-25-2024 End: 08-25-2024 E-mail encounter from caregiver Taylor Forrest RN General Surgery Start: 08-25-2024 End: 08-25-2024 Telephone encounter Taylor Forrest RN General Surgery Comment on above: Patient Question (Next Steps ) Start: 08-09-2024 End: 08-09-2024 [facility] DENICE [facility] Facility:[facility] Start: 08-06-2024 End: 08-06-2024 ambulatory DENICEJOSEPH JACOBS Facility:[facility] Start: 08-06-2024 End: 08-06-2024 Patient encounter procedure Denicejoseph Jacobs JOSE Work Phone: Neurology Comment on above: Neuropathy (Primary Dx); Paresthesia of both feet; Frequent falls Start: 08-03-2024 End: 08-03-2024 ambulatory ANILA DE PAZ Facility:[facility] Start: 08-03-2024 End: 08-03-2024 Patient encounter [...] examination done Sourav Marcial MD Work Phone: [facility] Start: 08-02-2024 End: 08-02-2024 ambulatory HUMZA CAMEJO Facility:[facility] Start: 08-02-2024 End: 08-02-2024 Patient encounter procedure Humza Camejo MD Work Phone: Ophthalmology Comment on above: Primary open angle glaucoma (POAG) of elisa th eyes, severe stage Start: 07-21-2024 End: 07-21-2024 ambulatory CHRISTOPHER KIRSTIN Facility:[facility] Start: 07-21-2024 End: 07-21-2024 Subsequent hospital visit by physician Eliazar Brown MD Work Phone: Gastroenterology Comment on above: Hiatal hernia [K44.9] Start: 07-19-2024 End: 07-19-[address] Christopher Turk DO -[facility] Work Phone: Start: 07-19-2024 End: 07-19-2024 ambulatory Christopher Turk [facility] Start: 07-19-2024 End: 07-19-2024 Telephone encounter Willa Torres APRN.TAX ASSOCIATE ATTORNEY Work Phone: Pre Anesthesia Comment on above: Request Outside Medical Records Start: 07-16-2024 End: 07-16-2024 Preprocedural examination done [place] [id number] Work Phone: [facility] Start: 07-16-2024 End: 07-16-2024 PAT [place] [id number] Work Phone: Pre Anesthesia Comment on above: Pre-operative examination (Primary Dx); Dementia without behavioral disturbance (HCC); MS (multiple sclerosis) (HCC); History of complex partial epilepsy; Restless legs syndrome; 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 Christopher Turk DO -[facility] Work Phone: Start: 07-12-2024 End: 07-12-2024 ambulatory Chema Perry [facility] Start: 07-09-2024 End: 07-09-2024 ambulatory Christopher Turk Facility:[facility] Start: 07-09-2024 End: 07-09-[address] Christopher Turk DO -Physical Therapy Work Phone: Start: 07-09-2024 End: 07-09-2024 ambulatory ANILA DE PAZ Facility:[facility] Start: 07-09-2024 Encounter for other preprocedural examination ANILA DE PAZ [facility] Start: 07-07-2024 End: 07-08-2024 Telephone encounter Fatimah Robbins RNc d stripper Comment on above: Patient Question (EGD Instructions neede d) Patient Question Start: 07-07-2024 End: 07-07-[address] Chema Perry MD -[facility] Work Phone: Start: 07-07-2024 End: 07-07-2024 ambulatory Chema Perry Facility:[facility] Start: 07-06-2024 ambulatory Rolando Nacho Facility:[facility] Start: 07-05-2024 End: 07-05-[address] 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, psychotic disturbance, mood disturbance, or anxiety (HCC) (Primary Dx); Physical deconditioning; Gait instability; Fine motor impairment; Dizziness; Idiopathic scoliosis and kyphoscoliosis; Multiple falls; Paresthesia of both feet Start: 06-24-2024 End: 06-24-2024 [facility] Start: 06-24-2024 End: 06-24-2024 Subsequent hospital visit by physician Em [facility] (I-Stat) Work Phone: Cat Scan Comment on above: Hiatal hernia [K44.9] Start: 06-23-2024 End: 06-23-2024 ambulatory ANILA DE PAZ Facility:[facility] Start: 06-18-2024 End: 06-18-2024 Preprocedural examination done Anila De Paz MD Work Phone: [facility] Start: 06-18-2024 End: 07-07-2024 Orders Only Anila De Paz MD Work Phone: General Surgery Comment on above: H/O acute myocardial infarction (Primary Dx); Cardiomyopathy, unspecified type (HCC); Pre-op evaluation; Encounter to establish care Hiatal hernia (Prima ry Dx) Pre-Procedure Leticia vázquez Start: 06-17-2024 End: 06-17-2024 Telephone encounter Taylor Forrest RN General Surgery Comment on above: Globe Cleaner - Other (Chart prep) Start: 06-16-2024 End: 06-16-2024 ambulatory [facility] Start: 06-10-2024 End: 06-10-2024 Refill Humza Camejo MD Work Phone: Ophthalmology Comment on above: Refill Request Start: 06-07-2024 End: 06-07-2024 Emergency department patient visit [facility] Facility:[facility] Start: 06-05-2024 End: 06-05-2024 ambulatory [facility] Start: 05-17-2024 End: 05-17-2024 ambulatory SUSAN SQUIRES Facility:[facility] Start: 05-17-2024 End: 05-17-2024 Patient encounter procedure Susan Squires MD Work Phone: General Surgery Comment on above: Hiatal hernia (Primary Dx); Gastroesophageal reflux disease, unspecified whether esophagitis present Start: 05-03-2024 End: 05-03-2024 Patient encounter procedure Humza Caemjo MD Work Phone: Ophthalmology Comment on above: Primary open angle glaucoma (POAG) of elisa th eyes, severe stage Start: 03-25-2024 End: 03-25-2024 Office outpatient visit [...] Ophthalmology Comment on above: Refill Request Start: 03-12-2024 Refill Laisha Sarah ROSASTAX ASSOCIATE ATTORNEY Work Phone: Neurology Comment on above: Refill Request Start: 12-26-2023 Refill Laisha Lizarraga MD PHYSICIAN DERMATOLOGIST.TAX ASSOCIATE ATTORNEY Work Phone: Neurology Comment on above: Refill Request Start: 12-26-2023 Refill Humza Camejo MD Work Phone: Ophthalmology Comment on above: Refill Request Start: 12-05-2023 Non-patient / Non-visit Dr. Chema Perry Work Phone: [facility] Work Phone: Start: 12-04-2023 Non-patient / Non-visit Dr. Chema Perry Work Phone: [facility] Start: 12-04-2023 End: 12-04-[address] Chema Perry Work Phone: [facility] Work Phone: Start: 12-04-2023 End: 12-04-[address] [facility] Work Phone: Start: 11-12-2023 End: 11-12-[address] 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 Chema Perry Work Phone: [facility] Work Phone: Start: 10-14-2023 End: 10-14-[address] Chema Perry Work Phone: [facility]-Laboratory Work Phone: Start: 10-08-2023 End: 10-08-[address] Chema Perry Work Phone: [facility]-Pulmonary Medicine [facility] Work Phone: Start: 09-24-2023 End: 09-24-[address] Chema Perry Work Phone: [facility] Work Phone: Start: 08-14-2023 End: 08-14-[address] Chema Perry Work Phone: [facility] Work Phone: Start: 08-14-2023 End: 08-14-[address] Chema Perry Work Phone: [facility]-Physical Therapy Work Phone: Start: 08-14-[address] Chema Perry Work Phone: [facility]-Physical Therapy Work Phone: Start: 08-13-2023 End: 08-13-[address] Chema Perry Work Phone: [facility] [place] Work Phone: Start: 07-15-2023 End: 07-15-[address] Chema Perry Work Phone: [facility] Work Phone: Start: 07-15-2023 End: 07-15-[address] 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 Chema Perry Work Phone: [facility] Work Phone: Start: 06-04-2023 End: 06-04-[address] Chema Perry Work Phone: [facility] Work Phone: Start: 05-29-2023 Non-patient / Non-visit Dr. Chema Perry Work Phone: [facility] Start: 05-29-2023 End: 05-29-[address] Chema Perry Work Phone: [facility] Work Phone: Start: 05-29-2023 End: 05-29-[address] Chema Perry Work Phone: [facility]-Cardiovascula r Services Work Phone: Start: 05-23-2023 Refill Laisha Lizarraga APRN.TAX ASSOCIATE ATTORNEY Work Phone: Neurology Start: 05-22-2023 End: 05-22-[address] Chema Perry Work Phone: [facility] [place] Work Phone: Start: 05-12-2023 End: 05-12-[address] Chema Perry Work Phone: [facility] Work Phone: Start: 05-06-2023 End: 05-06-[address] Chema Perry Work Phone: [facility] Work Phone: Start: 05-06-2023 End: 05-06-[address] [facility] Start: 04-22-2023 End: 04-22-[address] Chema Perry Work Phone: [facility]-Laboratory Work Phone: Start: 04-08-2023 ambulatory Laisha Lizarraga APRN.TAX ASSOCIATE ATTORNEY Work Phone: Neurology Comment on above: Tolerating Donepezil Start: 04-07-2023 End: 04-07-[address] Chema Perry Work Phone: [facility]-Pulmonary Medicine [facility] Work Phone: Start: 04-02-2023 End: 04-02-2023 Emergency department patient visit Dr. Chema Perry Work Phone: [facility]-Emergency Department Work Phone: Start: 04-01-[address] Chema Perry Work Phone: [facility]-Speech Therapy Work Phone: Start: 03-24-2023 End: 03-24-[address] Chema Perry Work Phone: [facility] Work Phone: Start: 02-12-2023 End: 02-12-[address] Chema Perry Work Phone: [facility] [place] Work Phone: Start: 02-12-[address] Chema Perry [facility] Start: 02-06-2023 End: 02-06-[address] Chema Perry Work Phone: [facility] Work Phone: Start: 02-06-2023 End: 02-06-[address] Chema Perry Work Phone: [facility]-Sleep Lab Start: 02-04-[address] Chema Perry Work Phone: [facility]-Speech Therapy Start: 01-29-2023 End: 01-29-[address] Chema Perry Work Phone: [facility] [place] Start: 01-29-2023 End: 01-29-[address] Chema Perry Work Phone: [facility] Work Phone: Start: 01-29-2023 End: 01-29-[address] Chema Perry [facility] Start: 01-20-2023 End: 01-20-[address] [facility] Start: 01-17-2023 End: 01-17-[address] Chema Perry Work Phone: [facility] Radiology Start: 01-17-[address] Chema Perry Work Phone: [facility]-Occupational Therapy Start: 01-15-2023 End: 01-15-[address] Chema Perry Work Phone: [facility] Work Phone: Start: 01-15-2023 End: 01-15-[address] Chema Perry Work Phone: [facility] Start: 01-10-2023 End: 01-10-[address] Chema Perry Work Phone: [facility] Work Phone: Start: 01-10-2023 End: 01-10-[address] Chema Perry Work Phone: [facility]-Outpatient Breast Imaging Start: 01-08-2023 End: 01-08-[address] Chema Perry Work Phone: [facility] Start: 01-02-2023 End: 01-02-[address] Chema Perry Work Phone: [facility] [place] Start: 01-01-2023 End: 01-01-[address] Chema Perry Work Phone: [facility]-Pulmonary Medicine [facility] Start: 12-25-2022 Non-patient / Non-visit Dr. Chema Perry Work Phone: [facility] Start: 12-25-2022 End: 12-25-[address] Chema Perry Work Phone: [facility]-Cardiovascula r Services Start: 12-25-2022 End: 12-25-[address] Chema Perry Work Phone: [facility] Start: 12-11-[address] Chema Perry Work Phone: [facility]-Physical Therapy Start: 12-04-2022 End: 12-04-2022 Subsequent hospital visit by physician Mri [employer] Bl (Lg Bore/3t) Radiology Comment on above: Dementia without behavioral disturbance (HCC) [F03.90] Start: 12-03-2022 End: 12-03-[address] Chema Perry Work Phone: [facility] Work Phone: Start: 12-03-2022 End: 12-03-[address] Chema Perry Work Phone: [facility]-Laboratory Start: 11-23-2022 End: 11-23-[address] Chema Perry Work Phone: [facility] Start: 11-13-2022 End: 11-13-2022 Patient encounter procedure Laisha Lizarraga APRN.[facility] Work Phone: Neurology Comment on above: Dementia without behavioral disturbance (HCC) (Primary Dx); History of complex partial epilepsy; Gait instability; Multiple falls; Physical deconditioning; Depression, unspecified depression type; Anxiety; Dizziness; Imbalance Start: 10-23-2022 End: 10-23-[address] Chema Perry Work Phone: [facility] Start: 10-21-2022 End: 10-21-[address] Chema Perry Work Phone: [facility] Start: 10-16-2022 End: 10-16-2022 Emergency department patient visit Dr. Chema Perry Work Phone: [facility]-Emergency Department Start: 10-14-[address] Chema Perry [facility] Start: 09-21-2022 End: 09-21-[address] Chema Prery Work Phone: [facility] Work Phone: Start: 09-21-2022 End: 09-21-[address] Chema Perry Work Phone: [facility] Start: 09-16-[address] Chema Perry [facility] Start: 09-06-2022 End: 09-06-[address] Chema Perry Work Phone: [facility] Work Phone: Start: 09-06-2022 End: 09-06-[address] Chema Perry Work Phone: [facility] Start: 07-30-2022 End: 07-30-[address] Chema Perry Work Phone: [facility] Work Phone: Start: 07-30-2022 End: 07-30-[address] Chema Perry [facility] Start: 07-24-2022 End: 07-24-[address] Chema Perry Work Phone: [facility] Start: 07-22-2022 End: 07-22-[address] Arun Ramos Work Phone: [facility] Start: 07-22-[address] Arun [facility] Start: 07-18-2022 End: 07-18-[address] Arun Ramos Work Phone: [facility] Start: 07-13-2022 End: 07-13-2022 Emergency department patient visit Dr. Arun Ramos Work Phone: [facility] Start: 07-12-2022 End: 07-12-[address] Arun Ramos Work Phone: [facility] Work Phone: Start: 07-12-2022 End: 07-12-[address] Arun Ramos Work Phone: [facility] Start: 07-08-2022 Non-patient / Non-visit Dr. Arun Ramos Work Phone: [facility] Internal Medicine Start: 07-07-2022 End: 07-07-[address] Arun Ramos Work Phone: [facility] Start: 07-05-[address] Arun Ramos Work Phone: [facility] Start: 07-04-2022 End: 07-04-[address] Arun Ramos Work Phone: [facility] [place] Start: 06-25-2022 End: 06-25-[address] Arun Ramos Work Phone: [facility] Start: 06-07-2022 End: 06-07-[address] Arun Ramos Work Phone: [facility] Start: 05-13-2022 End: 05-13-[address] Arun Ramos Work Phone: [facility] [place] Start: 04-25-2022 End: 04-25-[address] Arun Ramos Work Phone: [facility] [place] Start: 04-11-2022 End: 04-11-2022 Patient encounter procedure Laisha Lizarraga APRN.CNP Work Phone: Neurology Comment on above: Dementia without behavioral disturbance, unspecified dementia type (HCC) (Primary Dx); History of complex partial epilepsy; Gait instability; Multiple falls; Physical deconditioning; Cognitive communication deficit Start: 03-27-2022 End: 03-27-[address] Arun Ramos [facility] Start: 03-21-2022 End: 03-21-[address] Arun Ramos Work Phone: [facility] at [facility] Start: 03-20-2022 Non-patient / Non-visit Dr. Arun Ramos Work Phone: [facility] Start: 03-15-2022 End: 03-15-2022 Emergency department patient visit Dr. Arun Ramos [facility] Start: 03-15-[address] Arun [facility] Start: 03-08-[address] Ar[facility] Start: 03-07-2022 End: 03-07-[address] Arun aRmos [facility] Phone[facility] Start: 02-28-[address] Arun Ramos [facility] Start: 02-25-2022 End: 02-25-[address] Arun Ramos Work Phone: [facility], y Office 3rd Flr Start: 02-15-2022 End: 02-15-2022 Emergency department patient visit Dr. Arun Ramos [facility] Phone[facility] Start: 02-14-2022 End: 02-14-[address] Arun Ramos Work Phone: [facility], Phy Office 3rd Flr Start: 02-13-[address] Arun Ramos [facility] Start: 02-07-2022 End: 02-07-[address] Arun Ramos Work Phone: [facility] Services/Neurology Start: 02-07-2022 Non-patient / Non-visit Dr. Arun Ramos Work Phone: [facility] Start: 02-06-[address] Arun Ramos [facility] Start: 01-23-2022 End: 01-23-2022 Patient encounter procedure Mitchel Muse MD Work Phone: Neurology Comment on above: Dementia without behavioral disturbance, unspecified dementia type (HCC) (Primary Dx); History of complex partial epilepsy; Gait instability; Multiple falls; Depression, unspecified depression type; Anxiety; Physical deconditioning Start: 01-10-2022 End: 01-10-[address] Arun Ramos [facility] Start: 11-26-2021 End: 11-26-[address] Arun Ramos Work Phone: [facility] Start: 11-23-2021 End: 11-23-[address] Arun Ramos Work Phone: [facility] Start: 11-23-2021 End: 11-23-[address] Arun Ramos [facility] Start: 11-13-2021 End: 11-13-2021 Patient encounter procedure Laisha Lizarraga APRN.CNP Work Phone: Neurology Comment on above: Dementia without behavioral disturbance, unspecified dementia type (HCC) (Primary Dx); History of complex partial epilepsy; Gait instability; Multiple falls; Depression, unspecified depression type; Anxiety; Physical deconditioning Start: 11-07-2021 End: 11-07-[address] Arun Ramos Work Phone: [facility] Start: 10-08-2021 Non-patient / Non-visit Dr. Arun Ramos Work Phone: [facility] Start: 10-07-2021 Non-patient / Non-visit Dr. Arun Ramos Work Phone: [facility] Start: 10-06-2021 Non-patient / Non-visit Dr. Arun Ramos Work Phone: [facility] Start: 10-05-2021 Non-patient / Non-visit Dr. Arun Ramos Work Phone: [facility] Start: 10-05-2021 End: 10-08-2021 Evaluation and management of inpatient Dr. Arun Ramos Work Phone: [facility] Start: 09-04-2021 End: 10-04-2021 Evaluation and management of inpatient Dr. Arun Ramos Work Phone: [facility] Start: 09-04-2021 Non-patient / Non-visit Dr. Arun Ramos Work Phone: [facility] Start: 09-03-2021 Non-patient / Non-visit Dr. Arun Ramos Work Phone: [facility] Start: 09-02-2021 Non-patient / Non-visit Dr. Arun Ramos Work Phone: [facility] Start: 09-02-2021 End: 09-04-2021 Evaluation and management of inpatient Dr. Arun Ramos Work Phone: [facility] Start: 09-01-2021 End: 09-01-2021 Emergency department patient visit Dr. Arun Ramos Work Phone: [facility] Start: 08-13-[address] Arun Ramos Work Phone: [facility] Start: 08-09-2021 End: 08-09-[address] Arun Ramos Work Phone: [facility] Start: 02-06-[address] Arun Ramso Work Phone: [facility] Procedures Date Procedure Procedure Detail Performing Clinician Start: 04-17-2025 Mri brain brain stem w/o contrast material Laisha Lizarraga APRN.CNP Work Phone: Start: 03-11-2025 Plain chest X-ray Dr. Chema Perry MD Work Phone: Start: 03-11-2025 Blood count smear mcrscp w/mnl difrntl wbc count Dr. Chema Perry MD Work Phone: Start: 03-11-[address] Chema Perry MD Work Phone: Start: 03-11-2025 Mean corpuscular hemoglobin concentration determination Dr. Chema Perry MD Work Phone: Start: 03-11-2025 Nucleated red blood cell count procedure Dr. Chema Perry MD Work Phone: Start: 03-11-2025 Platelet mean volume determination Dr. Chema Perry MD Work Phone: Start: 03-11-2025 CT of head without contrast Dr. Chema Perry MD Work Phone: Start: 02-22-2025 Plain X-ray of clavicle Dr. Chema Perry MD Work Phone: Start: 02-22-2025 Blood count smear mcrscp w/mnl difrntl wbc count Dr. Chema Perry MD Work Phone: Start: 02-22-2025 Mean corpuscular hemoglobin concentration determination Dr. Chema Perry MD Work Phone: Start: 02-22-2025 Nucleated red blood cell count procedure Dr. Chema Perry MD Work Phone: Start: 02-22-2025 Platelet mean volume determination Dr. Chema Perry MD Work Phone: Start: 02-14-2025 Blood count smear mcrscp w/mnl difrntl wbc count Dr. Chema Perry MD Work Phone: Start: 02-14-2025 Mean corpuscular hemoglobin concentration determination Dr. Chema Perry MD Work Phone: Start: 02-14-2025 Nucleated red blood cell count procedure Dr. Chema Perry MD Work Phone: Start: 02-14-2025 Platelet mean volume determination Dr. Chema Perry MD Work Phone: Start: 02-14-2025 Total cholesterol:HDL ratio measurement Dr. Chema Perry MD Work Phone: Start: 02-14-2025 Vitamin D, 25-hydroxy measurement Dr. Sulema Perry MD Work Phone: Start: 02-10-2025 Blood count smear mcrscp w/mnl difrntl wbc count Dr. Chema Perry MD Work Phone: Start: 02-10-2025 Mean corpuscular hemoglobin concentration determination Dr. Chema Perry MD Work Phone: Start: 02-10-2025 Nucleated red blood cell count procedure Dr. Chema Perry MD Work Phone: Start: 02-10-2025 Platelet mean volume determination Dr. Chema Perry MD Work Phone: Start: 02-10-2025 Total cholesterol:HDL ratio measurement Dr. Chema Perry MD Work Phone: Start: 02-09-2025 Urnls dip stick/tablet reagent auto microscopy Dr. Chema Perry MD Work Phone: Start: 02-06-[address] Chema Perry MD Work Phone: Start: 02-06-2025 Mean corpuscular hemoglobin concentration determination Dr. Chema Perry MD Work Phone: Start: 02-06-2025 Platelet mean volume determination Dr. Chema Perry MD Work Phone: Start: 02-06-2025 Vitamin D, 25-hydroxy measurement Dr. Sulema Perry MD Work Phone: Comment on above: Vitamin D StatusDeficiency: <20 ng/mL (5 0nmol/L)Insufficiency: 20-30 ng/mL (50-75 nmol/L)Sufficiency: 30-100 ng/mL (75-250 nmol/L)Toxicity: >100 ng/mL (>250 nmol/L) Start: 02-06-2025 Plain X-ray of clavicle Dr. [...] Comment: Specimen Type: BLOOD SPEC IMENOrdering Facility: [facility] Address: [address] [place] [address] Performed By: #### T SCR ####CC MAIN BLOOD BANKCLIA [id number] [place] [address] [place] Start: 11-09-2024 X-ray [...] Comment: Specimen Type: BLOOD SPEC IMENOrdering Facility: [facility] Address: [address] [place] [address] Performed By: #### T SCR30 ####CC MAIN BLOOD BANKCLIA [id number] [facility] [id number] [place] Start: 09-13-2024 Esophagoscp rig transoral hypopharynx crv ko Srinivasan MD Work Phone: Start: 09-13-2024 Ercp [...] rendering w/interp&postproc diff work station Laisha Lizarraga APRN.[employer]X ASSOCIATE ATTORNEY Work Phone: Start: 12-04-2022 Mri brain brain stem w/o contrast material Laisha Lizarraga APRN.TAX ASSOCIATE ATTORNEY Work Phone: Start: 10-16-2022 Plain x-ray of [...] DTaP,Tdap,Td Vaccine (4 - Td or Tdap) [facility] Start: 01-05-2029 Urine microalbumin profile DTaP,Tdap,Td Vaccine (3 - Td or Tdap) [facility] Start: 11-17-2027 Diabetes Screening Diabetes Screening [facility] Start: 09-23-2027 Diabetes Screening Diabetes Screening [facility] Start: 09-14-2027 Diabetes Screening Diabetes Screening [facility] Start: 08-09-2027 Diabetes Screening Diabetes Screening [facility] Start: 12-20-2025 End: 12-20-2025 Patient encounter procedure 12/20/2025 3:30 PM EDT Office Visit Cardiology [address] [place], [place] [id number] Joan Guadalupe APRN.[facility] [address] [place] [address] 1yr follow up Cardiology Comment on above: 1yr follow up Start: 11-16-2025 End: 04-25-2026 OCT OPTIC NERVE CIRRUS OU (BOTH EYES) OCT OPTIC NERVE CIRRUS OU (BOTH EYES) [facility] Imaging Routine Primary open angle glaucoma (POAG) of both eyes, severe stage Expected: 11/16/2025, Expires: 04/25/2026 [facility] Work Phone: Comment on above: Expected: 11/16/2025, Expires: Start: 09-14-2025 Hepatitis B surface antibody level LDL Cholesterol [facility] Start: 08-17-2025 End: 01-24-2026 VISUAL FIELD 24-2 OU (BOTH EYES) VISUAL FIELD 24-2 OU (BOTH EYES) [facility] Imaging Routine Primary open angle glaucoma (POAG) of both eyes, severe stage Expected: 08/17/2025, Expires: 01/24/2026 [facility] Work Phone: Comment on above: Expected: 08/17/2025, Expires: Start: 06-10-2025 End: 06-10-2025 Patient encounter procedure 06/10/2025 9:30 AM EDT Office Visit Neurology [address] [place] [address] Nicolás Beltrán DO [address] [place] [address] 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 Ophthalmology Comment on above: Return in about 3 months (around 11/01/19 25). Start: 05-10-2025 End: 05-10-2025 Patient encounter procedure 05/10/2025 11:00 AM EDT Office Visit Neurology [address] [place], [place] [id number] Denice Jacobs PA-C [address] [place], [place] [id number] 6 month follow up Neurology Comment on above: 6 month follow up Start: 05-06-2025 End: 05-06-2025 Patient encounter procedure 05/06/2025 1:30 PM EDT Office Visit Neurology [address] [place] [address] Episode of shaking [R25.1] Neurology Comment on above: Episode of shaking [R25.1] Start: 05-03-2025 [facility] Start: 04-18-2025 Influenza vaccination Influenza Vaccine (#1) [facility] Start: 04-17-2025 End: 04-17-2026 MR Brain WO contrast MRI BRAIN WO IVCON Radiology Routine 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, psychotic disturbance, mood disturbance, or anxiety (HCC) Fluctuating mental status Ptosis of right eyelid Expected: 04/17/2025 (Approximate), Expires: 04/17/2026 [facility] Comment on above: Expected: 04/17/2025 (Approximate), Expi res: 04/17/2026 Start: 04-17-2025 End: 04-17-2025 Patient encounter procedure 04/17/2025 1:15 PM EDT Appointment [facility] [address] [place] [id number] MRI BRAIN WO IVCON [facility] Comment on above: MRI BRAIN WO IVCON Start: 03-24-2025 End: 03-24-2025 Patient encounter procedure 03/24/2025 2:30 PM EDT Office Visit Neurology [address] [address] Laisha Lizarraga, ROSMERY.TAX ASSOCIATE ATTORNEY [address] [place] [address] follow up- no moca Neurology Comment on above: follow up- no moca Start: 03-17-2025 End: 03-17-2025 Patient encounter procedure 03/17/2025 1:00 PM EDT Office Visit Neurology [address] [address] Laisha Lizarraga, MD PHYSICIAN DERMATOLOGIST.TAX ASSOCIATE ATTORNEY [address] [place] [address] follow up- no moca Neurology Comment on above: follow up- no moca Start: 03-11-2025 [facility] Start: 03-11-2025 [facility] Start: 02-22-2025 Plain X-ray of clavicle [facility] Start: 02-22-2025 XR Clavicle Views [facility] Start: 02-17-2025 End: 02-17-2025 Patient encounter procedure 02/17/2025 1:00 PM EDT Office Visit Neurology [address] [place] [address] Dimitry Maguire MD [address] [place] [address] 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] Neurology Comment on above: Ulnar neuropathy of right upper extremit y [G56.21] Start: 02-08-2025 Patient discharge [facility] Start: 02-06-2025 Application of ice collar, cap or bag [facility] Start: 02-06-2025 Consultation [facility] Start: 02-06-2025 Following clinical pathway protocol [facility] Start: 02-06-2025 Assessment of risk of venous thromboembolism [facility] Start: 02-06-2025 Inhalation therapy procedure [facility] Start: 02-06-2025 Insertion of catheter into peripheral vein [facility] Start: 02-06-2025 Providing care according to standard [facility] Start: 02-06-2025 Provision of activity privileges [facility] Start: 02-06-2025 Referral to occupational therapist [facility] Start: 02-06-2025 Referral to service [facility] Start: 02-06-2025 [facility] Start: 02-06-2025 Admission procedure [facility] Start: 02-06-2025 Hospital admission, emergency, from emergency room, medical nature [facility] Start: 02-06-2025 Patient referral to dietitian [facility] Start: 02-03-2025 [facility] Start: 02-01-2025 End: 02-01-2025 Patient encounter procedure 02/01/2025 1:30 PM EDT Office Visit Cardiology [address] [place] [address] [place] [address] [place] [id number] 6mo follow up Cardiology Comment on above: 6mo follow up Start: 01-27-2025 End: 01-27-2025 Patient encounter procedure 01/27/2025 2:30 PM EDT Office Visit Vasculary Surgery [address] [place] [address] Carotid bruit, unspecified laterality [R09.89] Vasculary Surgery Comment on above: Carotid bruit, unspecified laterality [R 09.89] Start: 01-05-2025 End: 01-05-2025 Patient encounter procedure 01/05/2025 3:30 PM EDT Office Visit [facility] Ophthalmology [address] [place] [address] Estelle Hodges MD [address] [place] [address] Return in about 2 months (around 01/01/2025) for OCT OU. Ophthalmology Comment on above: Return in about 2 months (around 01/02/20 25) for OCT OU. 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, psychotic disturbance, mood disturbance, or anxiety Neurology Comment on above: 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, psychotic disturbance, mood disturbance, or anxiety Start: 12-20-2024 End: 12-20-2024 Patient encounter procedure 12/20/2024 2:00 PM EDT Office Visit Cardiology [address] [place] [address] [place] [address] [place] [address] discuss medication/edema Cardiology Comment on above: discuss medication/edema Start: 12-09-2024 End: 12-09-2024 Patient encounter procedure 12/09/2024 1:40 PM EDT Office Visit [facility] [address] [address] Luh Dean PA-C [address] [place] [address] Degeneration of intervertebral disc of lumbar region, unspecified whether pain present [M51.369]; Left leg paresthesias [R20.2]; Right leg paresthesias [R20.2] [facility] Comment on above: Degeneration of intervertebral disc of l umbar region, unspecified whether pain present [M51.369]; Left leg paresthesias [R20.2]; Right leg paresthesias [R20.2] Start: 12-03-2024 End: 12-03-2024 Patient encounter procedure 12/03/2024 11:20 AM EDT Office Visit General Surgery [address] [place] [id number] Anila De Paz MD [address] [place], [place] [id number] Follow-up/ Luis GRIER 2.3.25 General Surgery Comment on above: Follow-up/ Luis GRIER 2.3.25 Start: 11-26-2024 End: 11-26-2024 Patient encounter procedure 11/26/2024 4:15 PM EDT OT/PT/Speech Visit [facility] [address] [place] [address], OTR/L [address] [place] [address] 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, R29.898] -- Recheck [facility] Comment on above: 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, R29.898] -- Recheck Start: 11-19-2024 End: 11-19-2024 Patient encounter procedure 11/19/2024 4:15 PM EDT OT/PT/Speech Visit [facility] [address] [place] [address], OTR/L [address] [place] [address] 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, R29.898] [facility] Comment on above: 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, R29.898] Start: 11-15-2024 End: 02-14-2025 Amylase [Enzymatic activity/volume] in Serum or Plasma AMYLASE Lab Routine Generalized abdominal pain Diarrhea, unspecified type Expected: 11/15/2024, Expires: 02/14/2025 [facility] Comment on above: Expected: 11/15/2024, Expires: Start: 11-15-2024 End: 02-15-2025 CBC W Auto Differential panel - Blood COMPLETE BLOOD COUNT AND DIFFERENTIAL Lab Routine Generalized abdominal pain Diarrhea, unspecified type Expected: 11/15/2024, Expires: 02/15/2025 [facility] Comment on above: Expected: 11/15/2024, Expires: Start: 11-15-2024 End: 02-15-2025 Comprehensive metabolic 2000 panel - Serum or Plasma COMPREHENSIVE METABOLIC PANEL Lab Routine Generalized abdominal pain Diarrhea, unspecified type Expected: 11/15/2024, Expires: 02/15/2025 [facility] Work Phone: Comment on above: Expected: 11/15/2024, Expires: Start: 11-15-2024 End: 02-14-2025 Lipase [Enzymatic activity/volume] in Serum or Plasma LIPASE Lab Routine Generalized abdominal pain Diarrhea, unspecified type Expected: 11/15/2024, Expires: 02/14/2025 [facility] Comment on above: Expected: 11/15/2024, Expires: Start: 11-12-2024 End: 11-12-2024 Patient encounter procedure 11/12/2024 3:30 PM EDT OT/PT/Speech Visit [facility] [address] [place] [address], OTR/L [address] [place] [address] 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, R29.898] [facility] Comment on above: 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, R29.898] Start: 11-11-2024 End: 11-11-2024 Patient encounter procedure Cat Scan Comment on above: Nausea [R11.0] Start: 11-10-2024 End: 04-19-2025 OCT OPTIC NERVE CIRRUS OU (BOTH EYES) OCT OPTIC NERVE CIRRUS OU (BOTH EYES) [facility] Imaging Routine Primary open angle glaucoma (POAG) of both eyes, severe stage Expected: 11/10/2024, Expires: 04/19/2025 [facility] Work Phone: Comment on above: Expected: 11/10/2024, Expires: Start: 11-05-2024 End: 11-05-2024 Patient encounter procedure 11/05/2024 2:00 PM EDT OT/PT/Speech Visit [facility] [address] [place], [place] [id number] [address] OTR/L [address] [place] [address] 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, R29.898] [facility] Comment on above: 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, R29.898] Start: 11-03-2024 End: 11-03-2024 Patient encounter procedure Neurology Comment on above: Three month follow up had EMG, neuropathy, frequent falls Start: 11-02-2024 End: 02-01-2025 CREATININE BLD CREATININE BLD Lab Routine Nausea Generalized abdominal pain Expected: 11/02/2024, Expires: 02/01/2025 [facility] Comment on above: Expected: 11/02/2024, Expires: Start: 11-01-2024 End: 11-01-2024 Patient encounter procedure 11/01/2024 2:45 PM EDT Office Visit [facility] Ophthalmology [address] [place] [address] Humza Camejo MD [address] [place] [address] Return in about 3 months (around 10/31/2024). Ophthalmology Comment on above: Return in about 3 months (around 11/01/19 25). Start: 10-29-2024 End: 10-29-2024 Patient encounter procedure [...] AM EST Office Visit General Surgery [address] [place] [address] Anila De Paz MD [address] [place] [id number] post op 2 wks/ lap paraesophageal hernia repair 09/20/2024 General Surgery Comment on above: post op 2 wks/ lap paraesophageal hernia repair 09/20/2024 Start: 10-07-2024 End: 10-07-2024 Patient encounter procedure 10/07/2024 1:45 PM EST Office Visit Neurology [address] [address] Laisha Lizarraga, MD PHYSICIAN DERMATOLOGIST.TAX ASSOCIATE ATTORNEY [address] [place] [address] follow up- no moca Neurology Comment on above: follow up- no moca Start: 09-20-2024 End: 09-20-2024 Admission to same day surgery center 09/20/2024 12:35 PM EST - 09/20/2024 5:55 PM EST Surgery Admitting [address] [place] [address] Anila De Paz MD [address] [place] [id number] LAPAROSCOPIC RPR PARAESOHAGEAL HERNIA W/ FUNDOPLASTY +/- [...] 12:35 PM EST Hospital Encounter Admitting [address] [place] [address] Anila De Paz MD [address] [address] [place] [address] Hiatal hernia [K44.9], Epigastric pain [R10.13], Nausea and vomiting, unspecified vomiting type [R11.2], Pre-op exam [Z01.818] Admitting Comment on above: Hiatal hernia [K44.9], Epigastric pain [ R10.13], Nausea and vomiting, unspecified vomiting type [R11.2], Pre-op exam [Z01.818] Start: 09-18-2024 [facility] Start: 09-15-2024 End: 09-15-2024 Anesthesia consultation 09/15/2024 8:00 AM EST PAT Pre Anesthesia [address] [place] [address] 2, Pacc Main [address] [place] [address] preop/ lap hernia repair 09/20/2024 Pre Anesthesia Comment on above: preop/ lap hernia repair 09/20/2024 Start: 09-14-2024 End: 09-14-2024 ambulatory 09/14/2024 3:00 PM EST Results Only [facility] [address] [place], [place] [id number] Hiatal hernia [K44.9]. Epigastric pain [R10.13]. Nausea and vomiting, unspecified vomiting type [R11.2]. Pre-op exam [Z01.818] [facility] Comment on above: Hiatal hernia [K44.9]. Epigastric pain [ R10.13]. Nausea and vomiting, unspecified vomiting type [R11.2]. Pre-op exam [Z01.818] Start: 09-14-2024 End: 09-14-2024 Anesthesia consultation 09/14/2024 2:00 PM EST PAT Pre Anesthesia [address] [place] [id number] 1, Pacc Rafita [address] [place] [id number] preop/ lap hernia repair 09/20/2024 Pre Anesthesia Comment on above: preop/ lap hernia repair 09/20/2024 Start: 09-14-2024 End: 12-14-2024 LIPID PANEL, NONFASTING [facility] Work Phone: Comment on above: Expected: 09/14/2024, Expires: Start: 09-13-2024 End: 09-13-2024 Patient encounter procedure Gastroenterology Comment on above: Dilated pancreatic duct [K86.89], severe dilation of CBD Start: 09-10-2024 End: 09-10-2024 ambulatory Neurology Comment on above: R PN r R PN Start: 09-07-2024 End: 09-07-2024 Patient encounter procedure 09/07/2024 9:30 AM EST Appointment Radiology [address] [place] [id number] Procedure: MRI PANC/MAGNOLIA WO/W IVCON Radiology Comment on above: Procedure: MRI PANC/MAGNOLIA WO/W IVCON Start: 09-03-2024 End: 09-03-2025 CBC W Auto Differential panel - Blood COMPLETE BLOOD COUNT AND DIFFERENTIAL Lab Routine Hiatal hernia Epigastric pain Nausea and vomiting, unspecified vomiting type Pre-op exam Expected: 09/03/2024, Expires: 09/03/2025 [facility] Comment on above: Expected: 09/03/2024, Expires: Start: 09-03-2024 End: 09-03-2025 Comprehensive metabolic 2000 panel - Serum or Plasma COMPREHENSIVE METABOLIC PANEL Lab Routine Hiatal hernia Epigastric pain Nausea and vomiting, unspecified vomiting type Pre-op exam Expected: 09/03/2024, Expires: 09/03/2025 [facility] Work Phone: Comment on above: Expected: 09/03/2024, Expires: Start: 09-03-2024 End: 09-03-2025 CONFIRM BLOOD TYPE CONFIRM BLOOD TYPE Blood Bank Routine Hiatal hernia Epigastric pain Nausea and vomiting, unspecified vomiting type Pre-op exam Expected: 09/03/2024, Expires: 09/03/2025 [facility] Comment on above: Expected: 09/03/2024, Expires: Start: 09-03-2024 End: 09-03-2024 Patient encounter procedure 09/03/2024 2:00 PM EST Office Visit General Surgery [address] [place] [address] Anila De Paz MD [address] [place] [place] [id number] Follow-up/ Pre-op PEHR/ completed EGD, CT ABD, [...] type Pre-op exam Expected: 09/03/2024, Expires: 12/03/2024 [facility] Comment on above: Expected: 09/03/2024, Expires: Start: 08-25-2024 End: 08-25-2024 Patient encounter procedure 08/25/2024 3:30 PM EST Office Visit Vascular Surgery [address] [address] Carotid bruit, unspecified laterality [R09.89] Vascular Surgery Comment on above: Carotid bruit, unspecified laterality [R 09.89] Start: 08-18-2024 Advance Directive Discussion Advance Directive Discussion [facility] Start: 08-09-2024 End: 08-09-2024 ambulatory 08/09/2024 4:00 PM EST Results Only [facility] [address] [place] [address] [facility] Start: 08-06-2024 End: 11-05-2024 CBC panel - Blood by Automated count COMPLETE BLOOD COUNT Lab Routine Neuropathy Expected: 08/06/2024, Expires: 11/05/2024 [facility] Comment on above: Expected: 08/06/2024, Expires: Start: 08-06-2024 End: 11-05-2024 Cobalamin (Vitamin B12) [Mass/volume] in Serum or Plasma VITAMIN B12 Lab Routine Neuropathy Expected: 08/06/2024, Expires: 11/05/2024 [facility] Comment on above: Expected: 08/06/2024, Expires: Start: 08-06-2024 End: 11-05-2024 Comprehensive metabolic 2000 panel - Serum or Plasma COMPREHENSIVE METABOLIC PANEL Lab Routine Neuropathy Expected: 08/06/2024, Expires: 11/05/2024 [facility] Comment on above: Expected: 08/06/2024, Expires: Start: 08-06-2024 End: 11-05-2024 PROTEIN ELECTROPHORESIS SERUM W/INTERP PROTEIN ELECTROPHORESIS SERUM W/INTERP Lab Routine Paresthesia of both feet Expected: 08/06/2024, Expires: 11/05/2024 [facility] Comment on above: Expected: 08/06/2024, Expires: Start: 08-06-2024 End: 11-05-2024 Pyridoxine [Mass/volume] in Serum or Plasma VITAMIN B6/PYRIDOXIN Lab Routine Neuropathy Expected: 08/06/2024, Expires: 11/05/2024 [facility] Comment on above: Expected: 08/06/2024, Expires: Start: 08-06-2024 End: 11-05-2024 VITAMIN B1 (THIAMINE), WHOLE BLOOD VITAMIN B1 (THIAMINE), WHOLE BLOOD Lab Routine Neuropathy Expected: 08/06/2024, Expires: 11/05/2024 [facility] Comment on above: Expected: 08/06/2024, Expires: Start: 08-06-2024 End: 08-06-2024 Patient encounter procedure 08/06/2024 10:00 AM EST Office Visit Neurology [address] [facility] [address] [address] Denice Jacobs PA-C [address] [place] [address] Paresthesia of both feet [R20.2] Neurology Comment on above: Paresthesia of both feet [R20.2] Start: 08-03-2024 End: 08-03-2024 Patient encounter procedure 08/03/2024 3:30 PM EST Office Visit Cardiology [id number] [place] [address] [place] [address] [place] [address] H/O acute myocardial infarction [I25.2]; Cardiomyopathy, unspecified type (HCC) [I42.9]; Pre-op evaluation [Z01.818] Cardiology Comment on above: H/O acute myocardial infarction [I25.2]; Cardiomyopathy, unspecified type (HCC) [I42.9]; Pre-op evaluation [Z01.818] Start: 08-02-2024 End: 08-02-2024 Patient encounter procedure 08/02/2024 2:15 PM EST Office Visit [facility] Ophthalmology [address] [place] [address] Humza Camejo MD [address] [place] [address] Return in about 3 months (around 08/02/2024). Ophthalmology Comment on above: Return in about 3 months (around 024). Start: 07-21-2024 End: 07-21-2024 Patient encounter procedure Gastroenterology Comment on above: EGD MAC Start: 07-16-2024 End: 07-16-2024 Anesthesia consultation 07/16/2024 3:00 PM EST PAT Pre Anesthesia [address] [place] [address] 1, Pacc [place] [address] [place] [address] pre op 07/21 Pre Anesthesia Comment on above: pre op 07/21 Start: 07-09-2024 End: 07-09-2024 Patient encounter procedure 07/09/2024 11:20 AM EST Office Visit Cardiology [address] [place] [address] H/O acute myocardial infarction [I25.2]; Cardiomyopathy, unspecified type (HCC) [I42.9]; Pre-op evaluation [Z01.818] Cardiology Comment on above: H/O acute myocardial infarction [I25.2]; Cardiomyopathy, unspecified type (HCC) [I42.9]; Pre-op evaluation [Z01.818] Start: 07-01-2024 End: 07-01-2024 Patient encounter procedure 07/01/2024 1:45 PM EST Office Visit Neurology [address] [place] [address] Laisha Lizarraga, MD PHYSICIAN DERMATOLOGIST.TAX ASSOCIATE ATTORNEY [address] [place] [address] F/U Neurology Comment on above: F/U Start: 06-18-2024 End: 09-17-2024 CREATININE BLD CREATININE BLD Lab Routine Hiatal hernia Expected: 06/18/2024, Expires: 09/17/2024 [facility] Comment on above: Expected: 06/18/2024, Expires: Start: 06-18-2024 End: 06-18-2024 Patient encounter procedure General Surgery Comment on above: New consult pt of Dr Squires Large Hiata l hernia on recent CT Gerd, frail, needs EGD Hiatal Hernia referr al from Dr. Squires/ HX: TIA, seizures, Dementia, asthma, ND, HTN, HLD, DVT, CA, GERD, SX: VHR, appy, Frail / CT ABD: R inguinal hernia (stable, LARGE hiatal hernia, dilated bile duct / NEEDS: EGD Start: 06-04-2024 End: 06-04-2024 Patient encounter procedure 06/04/2024 9:50 AM EDT Office Visit General Surgery [address] [place] [address] Laisha Sheppard MD [address] [place] [address] Hiatal hernia [K44.9] General Surgery Comment on above: Hiatal hernia [K44.9] Start: 05-17-2024 End: 05-17-2024 Patient encounter procedure 05/17/2024 3:00 PM EDT Office Visit General Surgery [address] [facility] [place] [place] [id number] Susan Squires MD [address] [facility] [place], [place] [id number] hernia General Surgery Comment on above: hernia Start: 05-03-2024 End: 05-03-2024 Patient encounter procedure 05/03/2024 2:00 PM EDT Office Visit [facility] Ophthalmology [address] [place] [address] Humza Camejo MD [address] [place] [address] Return in about 6 months (around 04/28/2024). Ophthalmology Comment on above: Return in about 6 months (around 04/28/20 24). Start: 04-18-2024 Covid-19 Vaccine ( season) Covid-19 Vaccine ( season) [facility] Start: 04-18-2024 Covid-19 Vaccine ( season) Covid-19 Vaccine ( season) [facility] Start: 04-18-2024 Influenza vaccination [facility] Start: 03-25-2024 End: 03-25-2024 Patient encounter procedure 03/25/2024 1:45 PM EDT Office Visit Neurology [address] [id number] Laisha Lizarraga, MD PHYSICIAN DERMATOLOGIST.TAX ASSOCIATE ATTORNEY [address] [place] [address] [facility] Follow Up Neurology Comment on above: [facility] Follow Up Start: 08-18-2023 Advance Directive Discussion Advance Directive Discussion [facility] Start: 05-08-2023 Diabetes Screening Diabetes Screening [facility] Start: 04-18-2023 Covid-19 Vaccine () Covid-19 Vaccine () [facility] Start: 04-18-2023 Covid-19 Vaccine () Covid-19 Vaccine () [facility] Start: 04-18-2023 Influenza vaccination [facility] Start: 01-17-2023 Radiography of thoracic spine Thoracic Spine 3 Views [facility] Start: 01-17-2023 XR Thoracic spine 3 Views [facility] Start: 01-17-2023 X-ray of lumbar spine, two or three views Lumbar Spine 2 or 3 Views [facility] Start: 01-17-2023 XR Lumbar spine 2 or 3 Views [facility] Start: 01-02-2023 Patient referral [facility] Work Phone: Start: 08-18-2022 ADVANCE DIRECTIVE DISCUSSION ADVANCE DIRECTIVE DISCUSSION [facility] Start: 04-18-2022 Influenza vaccination INFLUENZA (#1) [facility] Start: 02-25-2022 Methylmalonate measurement [facility] Work Phone: Start: 02-15-2022 [facility] Work Phone: Start: 09-22-2021 COVID-19 VACCINE (4 - Booster for Pfizer series) COVID-19 VACCINE (4 - Booster for Pfizer series) [facility] Start: 08-18-2021 ADVANCE DIRECTIVE DISCUSSION ADVANCE DIRECTIVE DISCUSSION [facility] Start: 07-17-2021 COVID-19 VACCINE (4 - Booster for Pfizer series) COVID-19 VACCINE (4 - Booster for Pfizer series) [facility] Start: 07-17-2021 COVID-19 VACCINE (4 - Pfizer series) COVID-19 VACCINE (4 - Pfizer series) [facility] Start: 12-01-2020 Screening for osteoporosis Bone Density Screening [facility] Start: 2017 RSV Vaccine (1 - 1-dose 75+ series) RSV Vaccine (1 - 1-dose 75+ series) [facility] Start: 2007 BONE DENSITY BONE DENSITY [facility] Start: 2007 Bone Density Screening Bone Density Screening [facility] Start: 2007 Pneumococcal Vaccine: 65+ (1 - PCV) Pneumococcal Vaccine: 65+ (1 - PCV) [facility] Start: 2007 PNEUMOCOCCAL: 65+ (1 - PCV) PNEUMOCOCCAL: 65+ (1 - PCV) [facility] Start: 2007 PNEUMOVAX AGE 65 AND OVER WITH 5YR LOOKBACK (#1) PNEUMOVAX AGE 65 AND OVER WITH 5YR LOOKBACK (#1) [facility] Start: 08-18-2007 Medicare Annual Wellness Visit Medicare Annual Wellness Visit [facility] Start: 2002 RSV Vaccine (1 - 1-dose 60+ series) RSV Vaccine (1 - 1-dose 60+ series) [facility] Start: 1992 SHINGRIX VACCINE (1 of 2) SHINGRIX VACCINE (1 of 2) [facility] Start: 1987 DIABETES SCREEN DIABETES SCREEN [facility] Start: 1987 Diabetes Screening Diabetes Screening [facility] Start: 1987 Screening for malignant neoplasm of colon [facility] Start: 1961 Urine microalbumin profile [facility] Start: 1960 Hepatitis B surface antibody level LDL Cholesterol [facility] Start: 1960 Screening for malignant neoplasm of colon [facility] Bacteria identified in Urine by Culture Urine Culture [facility] Work Phone: End: 07-18-2025 CT Abdomen and Pelvis W contrast IV CT ABD/PEL W IVCON Radiology Routine Hiatal hernia 1 Occurrences starting 06/18/2024 until 07/18/2025 [facility] Comment on above: 1 Occurrences starting 06/18/2024 until 07/18/2025 End: 12-02-2025 CT Abdomen and Pelvis W contrast IV CT ABD/PEL W IVCON Radiology Routine Nausea 1 Occurrences starting 11/02/2024 until 12/02/2025 [facility] Work Phone: Comment on above: 1 Occurrences starting 11/02/2024 until 12/02/2025 CT Abdomen and Pelvi s W contrast IV CT ABD/PEL W IVCON Radiology Routine Nausea 11/11/2024 1:55 PM EDT [facility] Work Phone: End: 07-18-2025 CT Chest W contrast IV CT CHEST W IVCON Radiology Routine Hiatal hernia 1 Occurrences starting 06/18/2024 until 07/18/2025 [facility] Comment on above: 1 Occurrences starting 06/18/2024 until 07/18/2025 CT Chest W contrast IV CT CHEST W IVCON Radiology Routine Hiatal hernia 06/24/2024 3:12 PM EST [facility] Work Phone: ECG COMPLETE ECG COMPLETE ECG 08/03/2024 3:41 PM EST [facility] End: 06-18-2025 Echocardiography ECHO Cardiology Routine H/O acute myocardial infarction Cardiomyopathy, unspecified type (HCC) Pre-op evaluation 1 Occurrences starting 06/18/2024 until 06/18/2025 [facility] Work Phone: Comment on above: 1 Occurrences starting 06/18/2024 until 06/18/2025 End: 09-08-2025 EGD - THERAPEUTIC, EUS, OR TUBE INTERVENTIONS EGD - THERAPEUTIC, EUS, OR TUBE INTERVENTIONS Endoscopy Routine Dilated pancreatic duct 1 Occurrences starting 09/08/2024 until 09/08/2025 [facility] Work Phone: Comment on above: 1 Occurrences starting 09/08/2024 until 09/08/2025 End: 06-18-2025 EGD DIAGNOSTIC EGD DIAGNOSTIC Endoscopy Routine Hiatal hernia 1 Occurrences starting 06/18/2024 until 06/18/2025 [facility] Work Phone: Comment on above: 1 Occurrences starting 06/18/2024 until 06/18/2025 End: 08-06-2025 EMG(NEURO/NI) EMG(NEURO/NI) EMG Routine Neuropathy 1 Occurrences starting 08/06/2024 until 08/06/2025 [facility] Work Phone: Comment on above: 1 Occurrences starting 08/06/2024 until 08/06/2025 End: 03-17-2026 EPIL EEG LONG EPIL EEG LONG NEUROLOGY Routine Episode of shaking History of seizures 1 Occurrences starting 03/17/2025 until 03/17/2026 [facility] Work Phone: Comment on above: 1 Occurrences starting 03/17/2025 until 03/17/2026 Lipid 1996 panel - S des or Plasma [facility] Work Phone: Lipid 1996 panel - S des or Plasma [facility] Measurement of respiratory function [facility] Methylmalonate measurement [facility] Work Phone: End: 10-03-2025 MR Biliary ducts and Pancreatic duct WO and W contrast IV MRI PANC/MAGNOLIA WO/W IVCON Radiology Routine Abnormal results of liver function studies 1 Occurrences starting 09/03/2024 until 10/03/2025 [facility] Work Phone: Comment on above: 1 Occurrences starting 09/03/2024 until 10/03/2025 End: 10-03-2025 MR Unspecified body region 3D post processing MRI 3D POST PROCESSING Radiology Routine Abnormal results of liver function studies 1 Occurrences starting 09/03/2024 until 10/03/2025 [facility] Comment on above: 1 Occurrences starting 09/03/2024 until 10/03/2025 End: 12-13-2023 MRI 3D POST PROCESSING MRI 3D POST PROCESSING Radiology Routine Dementia without behavioral disturbance (HCC) 1 Occurrences starting 11/13/2022 until 12/13/2023 [facility] Work Phone: Comment on above: 1 Occurrences starting 11/13/2022 until 12/13/2023 End: 12-13-2023 MRI BRAIN W QUANT WO IVCON MRI BRAIN W QUANT WO IVCON Radiology Routine Dementia without behavioral disturbance (HCC) 1 Occurrences starting 11/13/2022 until 12/13/2023 [facility] Work Phone: Comment on above: 1 Occurrences starting 11/13/2022 until 12/13/2023 NEUROMUSCULAR ULTRASOUND/NEUROLOGY NEUROMUSCULAR ULTRASOUND/NEUROLOGY Procedures Routine Ulnar neuropathy of right upper extremity Ordered: 11/03/2024 [facility] Work Phone: Comment on above: Ordered: 11/03/2024 Patient Education [facility] Work Phone: Patient referral [facility] Work Phone: Polysomnography [facility] REFER FOR ADMIT INTERVIEW REFER FOR ADMIT INTERVIEW Procedures Routine Hiatal hernia Epigastric pain Nausea and vomiting, unspecified vomiting type Pre-op exam Ordered: 09/03/2024 [facility] Comment on above: Ordered: 09/03/2024 Troponin T.cardiac [Mass/volume] in Serum or Plasma by High sensitivity method [facility] US Breast limited [facility] US Carotid arteries [facility] End: 08-03-2025 US Carotid arteries - bilateral US CAROTID ARTERIES [facility] Routine Carotid bruit, unspecified laterality 1 Occurrences starting 08/03/2024 until 08/03/2025 [facility] Work Phone: Comment on above: 1 Occurrences starting 08/03/2024 until 08/03/2025 End: 12-20-2025 US Carotid arteries - bilateral US CAROTID ARTERIES [facility] V[facility] Lab Routine Carotid bruit, unspecified laterality 1 Occurrences starting 12/20/2024 until 12/20/2025 [facility] Work Phone: Comment on above: 1 Occurrences starting 12/20/2024 until 12/20/2025 [facility] Immunizations Immunization Date Immunization Notes Care Provider Tootie gaines 12-19-2024 TD(adult) unspecifie d formulation Young VALENCIA Work Phone: [facility] Work Phone: 12-19-2024 tetanus and diphther ia toxoids, adsorbed, preservative free, for adult use (5 Lf of tetanus toxoid and 2 Lf of diphtheria toxoid) Young VALENCIA Work Phone: [facility] 04-27-2024 Seasonal trivalent influenza vaccine, adjuvanted, preservative free Denice Jacobs PA-C Work Phone: [facility] 04-27-2024 influenza virus vacc ine, unspecified formulation Laisha Lizarraga MD PHYSICIAN DERMATOLOGIST.TAX ASSOCIATE ATTORNEY Work Phone: [facility] 05-22-2023 influenza, injectabl e, quadrivalent, preservative free Dr. Chema Perry Work Phone: [facility] 05-22-2023 influenza virus vacc ine, unspecified formulation Laisha Lizarraga MD PHYSICIAN DERMATOLOGIST.TAX ASSOCIATE ATTORNEY Work Phone: [facility] 05-20-2022 influenza (aIIV4) vaccine, age 65+ yr, quadrivalent, PF (FLUAD QUAD) Denice Bedrockteri JACKSON Work Phone: [facility] 05-20-2022 influenza virus vacc ine, unspecified formulation Laisha Lizarraga APRN.[facility] Work Phone: [facility] 05-18-[address] Arun Ramos Work Phone: [facility] 05-18-2021 influenza-bonnie H5 v irus vaccine, unspecified formulation Denice Bedrockteri GARCIA Work Phone: [facility] 04-10-2021 influenza, injectabl e, quadrivalent, contains preservative Denice Jacobs PA-C Work Phone: [facility] 02-17-2021 pneumococcal polysaccharide vaccine, 23 valent Denice JACKSON Work Phone: [facility] 02-17-[address] Arun Ramos Work Phone: [facility] Work Phone: 02-17-2021 pneumococcal vaccine , unspecified formulation Dr. Arun Ramos Work Phone: [facility] 10-28-2020 COVID-19 vaccine, ag e 12+ yr (Synthetic [employer]olog[employer]-BIONTCagenix - PURPLE TOP) Laisha Lizarraga APRN.TAX ASSOCIATE ATTORNEY Work Phone: [facility] 10-07-2020 COVID-19 vaccine, ag e 12+ yr (Synthetic [employer]olog[employer]-BIONTCagenix - PURPLE TOP) Laisha Sarah MD PHYSICIAN DERMATOLOGIST.[facility] Work Phone: [facility] Work Phone: 05-10-2020 influenza virus vacc ine, unspecified formulation Denice Queener PA-C Work Phone: [facility] 07-13-2019 zoster vaccine recombinant Denice Queener PA-C Work Phone: [facility] 05-13-2019 influenza virus vacc ine, unspecified formulation Denice Queener PA-C Work Phone: [facility] 05-13-2019 influenza, high dose seasonal, preservative-free Denice Queener PA-C Work Phone: [facility] 05-13-2019 zoster vaccine recombinant Denice Queener PA-C Work Phone: [facility] 01-05-2019 tetanus toxoid, redu long diphtheria toxoid, and acellular pertussis vaccine, adsorbed Denice Queener PA-C Work Phone: [facility] 06-24-2018 pneumococcal polysaccharide vaccine, 23 valent Denice Queener PA-C Work Phone: [facility] 05-21-2018 influenza virus vacc ine, unspecified formulation Denice Queener PA-C Work Phone: [facility] 05-21-2018 Seasonal trivalent influenza vaccine, adjuvanted, preservative free Denice Queener PA-C Work Phone: [facility] 05-18-2018 influenza virus vacc ine, unspecified formulation Denice Queener PA-C Work Phone: [facility] 05-31-2017 influenza virus vacc ine, unspecified formulation Denice Queener PA-C Work Phone: [facility] 05-31-2017 influenza, high dose seasonal, preservative-free Denice Queener PA-C Work Phone: [facility] 05-31-2017 pneumococcal conjuga te vaccine, 13 valent Denice Queener PA-C Work Phone: [facility] 05-01-2016 influenza virus vacc ine, unspecified formulation Denice Houstoner PA-C Work Phone: [facility] 05-02-2015 influenza virus vacc ine, unspecified formulation Denice Houstoner PA-C Work Phone: [facility] 10-31-2014 pneumococcal conjuga te vaccine, 13 valent Denice Houstoner PA-C Work Phone: [facility] 05-13-2014 influenza virus vacc ine, unspecified formulation Denice Houstoner PA-C Work Phone: [facility] 05-13-2014 influenza, seasonal, injectable, preservative free Denice Houstoner PA-C Work Phone: [facility] 05-27-2013 influenza virus vacc ine, unspecified formulation Denice Houstoner PA-C Work Phone: [facility] 05-16-2011 influenza virus vacc ine, unspecified formulation Denice Houstoner PA-C Work Phone: [facility] 05-16-2011 influenza, seasonal, injectable, preservative free Denice Houstoner PA-C Work Phone: [facility] 06-18-2010 influenza virus vacc ine, unspecified formulation Denice Houstoner PA-C Work Phone: [facility] 06-18-2010 influenza, seasonal, injectable, preservative free Denice Houstoner PA-C Work Phone: [facility] 03-22-2010 pneumococcal polysaccharide vaccine, 23 valent Denice Houstoner PA-C Work Phone: [facility] 03-22-2010 tetanus and diphther ia toxoids, adsorbed, preservative free, for adult use (5 Lf of tetanus toxoid and 2 Lf of diphtheria toxoid) Denice Houstoner PA-C Work Phone: [facility] 03-22-2010 tetanus toxoid, redu long diphtheria toxoid, and acellular pertussis vaccine, adsorbed Denice Houstoner PA-C Work Phone: [facility] 06-06-2009 influenza virus vacc ine, unspecified formulation Denice Houstonteri GARCIA Work Phone: [facility] 06-06-2009 influenza, seasonal, injectable, preservative free Denice Jacobs JOSE Work Phone: [facility] Payers Date Payer Category Payer Self-pay [id number] 2019 Unknown [id number] 2015 Unknown [id number] 2014 Private Health Insurance [facility] AD [id number] 2014-Present [phone] [address] [address] [place] [address] O [id number] 2014 Private Health Insurance [id number] 2007 Medicare MEDICARE MEDICAR E A AND B [id number] 2007-Present [phone] [address] [address] [place] [address] Medicare [id number] 2007 Medicare [id number] 2007 Medicare [id number] Medicare [id number] Medicare MEDICARE PART A B [id number] Unknown [id number] 2.16.840.1.340498.3.579 .2.462 Unknown [id number] 2.16.840.1.160885.3.579 .2.462 Unknown [id number] 2.16.840.1.333570.3.579 .2.462 Unknown [id number] 2.16.840.1.274732.3.579 .2.462 Unknown [id number] 2..840.1.505362.3.579 .2.462 Unknown [id number] 2..840.1.426507.3.579 .2.462 Unknown [id number] 2..840.1.875943.3.579 .2.462 Unknown [id number] 2.840.1.991903.3.579 .2.462 Unknown [id number] 2.840.1.914879.3.579 .2.462 Unknown [id number] 2.840.1.013810.3.579 .2.462 Unknown [id number] 2.840.1.734786.3.579 .2.462 Unknown [id number] 2.840.1.973283.3.579 .2.462 Unknown [id number] 2.840.1.504664.3.579 .2.462 Unknown [id number] 2.840.1.922547.3.579 .2.462 Unknown [id number] 2.840.1.605811.3.579 .2.462 Unknown [id number] 2.16.840.1.462079.3.579 .2.462 Unknown [id number] 2.840.1.145919.3.579 .2.462 Unknown [id number] 2.840.1.880190.3.579 .2.462 Unknown [id number] 2.16.840.1.346376.3.579 .2.462 Unknown [id number] 2.16.840.1.399837.3.579 .2.462 Unknown [id number] 2.16.840.1.716811.3.579 .2.462 Unknown [id number] 2.16.840.1.879648.3.579 .2.462 Unknown [id number] 2.16.840.1.850231.3.579 .2.462 Unknown [id number] 2.16.840.1.468468.3.579 .2.462 Unknown [id number] 2.840.1.654577.3.579 .2.462 Unknown [id number] 2.840.1.887557.3.579 .2.462 Unknown [id number] 2.840.1.344161.3.579 .2.462 Unknown [id number] 2.840.1.645652.3.579 .2.462 Unknown [id number] 2.840.1.889246.3.579 .2.462 Unknown [id number] 2.840.1.879806.3.579 .2.462 Unknown [id number] 2.840.1.833286.3.579 .2.462 Unknown [id number] 2.840.1.343895.3.579 .2.462 Unknown [id number] 2.840.1.592062.3.579 .2.462 Unknown [id number] 2.840.1.938445.3.579 .2.462 Unknown [id number] 2.16.840.1.237005.3.579 .2.462 Unknown [id number] 2.16.840.1.543651.3.579 .2.462 Unknown [id number] 2.840.1.526873.3.579 .2.462 Unknown [id number] 2.16.840.1.621012.3.579 .2.462 Unknown [id number] 2.16.840.1.641966.3.579 .2.462 Social History Date Type Detail Facility Start: 10-25-2020 End: 05-03-2025 Tobacco smoking status NHIS Never smoked tobacco [facility] Start: 10-25-2020 End: 07-25-2022 Tobacco use and exposure Smokeless tobacco non-user [facility] Start: 11-13-2021 End: 09-13-2024 Alcohol intake Current drinker of alcohol (finding) [facility] Start: 10-25-2020 History SDOH Alcohol Comment Weekly 1-2 drinks [facility] Start: 1940 Sex Assigned At Female C [facility] Start: 11-03-2021 End: 04-11-2022 Exposure to SARS-CoV-2 (event) Not sure [facility] Start: 11-07-2021 End: 11-12-2023 Tobacco smoking status NHIS Unknown if ever smoked [facility] Start: 10-07-2020 Spouse/ Signif icant Other [facility] Start: 03-14-2023 End: 11-16-2024 History of Social function [facility] Start: 03-14-2023 End: 11-16-2024 Tobacco use panel [facility] Start: 07-31-2020 Adult Depression Screening Assessment 0 [facility] Start: 08-08-2020 Gender identity Identifies as female gender (finding) [facility] Start: 08-08-2020 Sexual orientation Heterosexual (fin lexie) [facility] Start: 09-14-2024 End: 05-02-2025 Alcoholic beverage intake Ex-drinker (finding) [facility] Has the [employer], oil, or water company threatened to shut off services in your home in past 12Mo No [facility] Work Phone: (I/We) worried [facility] (my/our) food would run out before (I/we) got money to buy more. Never true [facility] Start: 10-29-2024 End: 11-15-2024 Sex Female (finding) [facility] Functional Status Date Assessment Result Facility 02-08-2025 Functional status Ambulates;Beds марина Com[employer] [facility] Work Phone: 11-17-2024 Are you deaf, or do you have serious difficulty hearing No 11/17/2024 12:03 PM Merlene Ojeda, MAN No [facility] 11-17-2024 Are you blind, or do you have serious difficulty seeing, even when wearing glasses No 11/17/2024 12:03 PM Merlene Ojeda, MAN No [facility] 11-17-2024 Do you have serious difficulty walking or climbing stairs No 11/17/2024 12:03 PM Merlene Ojeda, MAN No [facility] 11-17-2024 Do you have difficul ty dressing or bathing No 11/17/2024 12:03 PM Merlene Ojeda, MAN No [facility] 11-17-2024 Because of a physica l, mental, or emotional condition, do you have difficulty doing errands alone such as visiting a physician's office or shopping No 11/17/2024 12:03 PM Merlene Ojeda, MAN No [facility] 10-08-2021 Functional status Chair [facility] Work Phone: 10-02-2021 Functional status Activity Abili ty Unable to Assess [facility] Work Phone: 09-28-2021 Functional status Patient Activity Chair [facility] Work Phone: 09-04-2021 Functional status Bedside [employer] [facility] Work Phone: Mental Status Date Assessment Result Facility 03-11-2025 Cognitive function Awake;Alert;A ppropriate;Fo llows Commands [facility] Work Phone: 02-08-2025 Cognitive function Appropriate [facility] Work Phone: 11-17-2024 Because of a physica l, mental, or emotional condition, do you have serious difficulty concentrating, remembering, or making decisions No 11/17/2024 12:03 PM Merlene Ojeda, MAN No [facility] 02-15-2022 Cognitive function Awake;Alert;A ppropriate;Fo mayco Commands [facility] Work Phone: 10-08-2021 Cognitive function Appropriate;Cooperativ e [facility] Work Phone: 10-04-2021 Cognitive function Voice/Name [facility] Work Phone: 09-04-2021 Cognitive function Fearful [facility] Work Phone: Clinical Notes 11-13-2021 to 05-03-2025 Note Date & Type Note Facility 05-03-2025 Discharge summary Note Date/Time May 03, 2025 3:36pm [facility] Medical Records Department [address] [place] [address] Emergency Department Summary 05/03/25 MR#: [id number] Acct: [id number] Name: LAUREN ALCARAZ Rep # :[id number] : 1940 84 From: Chu Horowitz MD PCP: Dr. Chema Perry MD Status:REG ER Location: ED HPI History of Present Illness Chief Complaint: Laceration Detail of Chief Complaint: 3.5 cm laceration mid medial left leg/calf Informant: patient Onset/Context/Timing Onset: Yesterday (Laceration occurred yesterday at 0900) Mechanism/Context: Incised Location of pain/injuries: Left lower leg Quality of Pain: - (Not applicable) Location: Mid medial left leg Current Severity: Gone Maximum Severity: Mild Worsened by: Palpation Relieved by: Nothing Associated Symptoms Associated Symptoms: Negative for Parasthesias, Weakness, Loss of function, Inability to ambulate or Loss of consciousness Narrative Narrative: Patient is a 84-year-old female who sustained a laceration yesterday at 0900 doing craft work. She was seen last evening at urgent care. She had Steri-Strips applied. She is concerned because it still bleeding. She is on anticoagulant because of history of PEs. She is also concerned because of swelling proximally. She denies paresthesia, anesthesia or motor weakness. Shedenies constitutional symptoms of fever or chills. The drainage is bloody. 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 Essential hypertension [...] 1 cap PO MILTON Y Supplement 09/02/21 02/05/25 History 2 billion cell-50 mg capsule (Probiotic Blend) aspirin 81 mg tablet,delayed 81 mg PO DAILY 01/10/22 0 02/05/25 History release (Adult Aspirin Regimen) d-mannose 500 mg capsule 500 mg PO DAILY 06/07/22 History famotidine 10 mg tablet 10 mg PO BID 06/07/22 History multivitamin 1 tab PO DAILY 06/07/2201/17 History mirabegron 50 mg tablet,extended 50 mg PO QHS Check wi th primary 01/29/23 02/05/25 History release 24 hr (Myrbetriq) doctor syringes BD ECLIPSE 04/11/23 Unknown History latanoprost 0.005 % eye drops 1 drp ophthalmic (eye) D AILY 08/13/23 02/05/25 History (Xalatan) nitroglycerin 0.4 mg sublingual 0.4 mg sublingual [...] fluticasone propionate 50 1 spray intranasal DAILY 02/05/25 History mcg/actuation nasal spray,suspension (Allergy Relief (fluticasone)) PEP device #1 ea 04/06/24 Unknown Rx apixaban 5 mg tablet (Eliquis) 5 mg PO BID #180 tabs 1 02/05/25 Rx atorvastatin 40 mg tablet See Rx Instructions .Route 1 02/05/25 Rx .COMPLEX #90 tabs levothyroxine 50 mcg tablet 50 mcg PO DAILY Thyroid #9 0 tabs 06/08/24 02/05/25 Rx memantine 10 mg tablet 10 mg PO BID Alzheimer's #18 0 tabs 06/08/24 02/05/25 Rx pramipexole 0.5 mg tablet 0.5 mg PO BID #180 tabs 05/1902/05/25 Rx vortioxetine 20 mg tablet 20 mg PO DAILY DEPRESSION #9 0 tabs 06/08/24 02/05/25 Rx (Trintellix) brimonidine 0.2 % eye drops 1 drp ophthalmic (eye) QHS 10/14/24 02/05/25 History olopatadine 0.6 % nasal spray 2 spray intranasal DAILY 10/14/24 Unknown History pantoprazole 40 mg tablet,delayed 40 mg PO DAILY 10/1402/05/25 History release potassium chloride 20 mEq 20 meq PO DAILY 10/14/24 History tablet,extended release(part/cryst) (Klor-Con M) furosemide 20 mg tablet 10 mg (1/2 x 20 mg) PO DAILY PRN 11/23/24 Unknown Rx edema #30 tabs denosumab 60 mg/mL subcutaneous 60 mg subcut [id number] #1 mL 01/24/25 Unknown Rx syringe (Prolia) gabapentin 100 mg capsule 300 mg PO QHS restless leg(s ) 02/03/25 02/05/25 History donepezil 10 mg tablet 10 mg PO DAILY 02/06/2501/17 History lacosamide 100 mg tablet (Vimpat) 100 mg PO BID 20 day s #40 tabs 02/08/25 Unknown Rx lidocaine 5 % topical patch 1 patch topical DAILY #15 ea 02/08/25 Unknown Rx acetaminophen 500 mg capsule 500 mg PO Q6H PRN 5 Unknown History dorzolamide 22.3 mg-timolol 6.8 1 drp ophthalmic (eye) BID 02/22/25 Unknown History mg/mL eye drops ondansetron 4 mg disintegrating 4 mg PO Q4H PRN Unknown History tablet sennosides 8.6 mg-docusate sodium 1 tab-cap PO QHS 04/11 Unknown History 50 mg tablet (Senna Plus) albuterol sulfate 2.5 mg/3 mL 2.5 mg (3 mL) inhalation Q6H PRN 03/10/25 Unknown Rx (0.083 %) solution for nebulization Sob &/Or Wheezing #180 mL hydromorphone 2 mg tablet mg PO 03/14/25 Unknown Histo ry hydromorphone 2 mg tablet 2 mg PO Q6H 03/22/25 Unknown History (Dilaudid) mirabegron 50 mg tablet,extended See Rx Instructions P O QDAY #180 03/22/25 Unknown Rx release 24 hr (Myrbetriq) tabs ergocalciferol (vitamin D2) 1,250 1,250 mcg PO Q7D #12 caps 04/13/25 Unknown Rx mcg (50,000 unit) capsule (Vitamin D2) Allergy/AdvReac Type Severity Reaction Status Date / Time doxycycline Allergy Mild Vomiting Verified 05/03/25 15:07 acetaminophen (From Percocet) Allergy unknown Verified 05/03/25 15:07 lamotrigine (From Lamictal) Allergy Lip Verified 05/03/25 15:07 Swelling moxifloxacin HCl (From Allergy Other Verified 05/03/25 15:07 Avelox) propoxyphene napsylate (From Allergy Other Verified 05/03/25 15:07 Darvocet-N) zolpidem (From Ambien) Allergy unknown Verified 05/03/25 15:07 hydrocodone AdvReac Severe Confusion Verified 05/03/25 15:07 oxycodone (From Percocet) AdvReac Severe Confusion Verified 05/03/25 15:07 zolpidem tartrate (From AdvReac Other Verified 05/03/25 15:07 Ambien) Family History Mother CVA (cerebral vascular accident) Arthritis Father Myocardial infarction, Onset Age: 40 Alcoholism Hypertension Sister Anemia Grandmother Bowel disease Osteoporosis Ovarian cancer Other Heart disease Surgical History H/O: hysterectomy History of repair of hiatal hernia History [...] ROS ROS ED Constitutional Constitutional ED: Denies chills, fever(s), subjective, sweats or weight loss Integumentary Reports other Details: Laceration and hematoma left leg ; Denies Abrasions or rash Neurologic Neurologic: Denies paresthesias Hematologic/Lymphatic Hematologic/Lymphatic: Reports easy bleeding and easy bruising EXAM Physical Exam Const Vital Signs: 05/03/25 15:07 Temperature 98.3 F Temperature Source Temporal Pulse Rate 71 Respiratory Rate 18 Blood Pressure 114/64 Blood Pressure Mean 80 Pulse Ox 91 Oxygen Delivery Method Room Air Positive well nourished and well developed General Appearance ED: well developed and NAD HEENT atraumatic Eyes PERRL and EOMs intact bilaterally Resp normal respiratory effort Cardio regular rhythm Rate: regular rate Extremity Negative for normal to inspection Extremity Narrative: Patient has a 3.5 cm laceration. There is some oozing of blood. The Steri-Strips are no longer adherent proximally. These were removed. Patient was toldthat we would put tincture of benzoin on reapplied the strips and a compressive dressing. 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 Neuro oriented x3, CN's II-XII intact bilaterally and moves all extremities Psych mental status grossly normal and thought process normal Skin Skin Narrative: Wound that is not infected i.e. erythema, warmth, induration fluctuance. There is a hematoma superior to the laceration. MDM MDM MDM Narrative Medical decision making narrative: Nurse applied tincture of benzoin inferior and superior to the wound. The woundwas approximated by me. The nurse applied the Steri-Strips. There were multiple strips applied. Patient tolerated. Dressing was then applied with Coban and. Since she is on anticoagulant we will have her not remove the dressing for 48 hours. At this point suturing is not applicable. Discharge Plan Triage Chief Complaint: Laceration ED Provider: Chu Horowitz Dx/Rx/DC Orders Clinical Impression: Laceration of left lower extremity, Hematoma of left lower leg, Anticoagulant long-term use Instructions: ED Laceration, Old: Not Sutured Prescriptions: No Action Myrbetriq 50 mg tablet extended release 24 hr 50 mg PO QHS aspirin [Adult Aspirin Regimen] 81 mg tablet,delayed release (DR/EC) 81 mg PO DAILY multivitamin Tablet 1 tab PO DAILY famotidine 10 mg tablet 10 mg PO BID d-mannose 500 mg capsule 500 mg PO DAILY latanoprost [Xalatan] 0.005 % drops 1 drp ophthalmic (eye) DAILY nitroglycerin 0.4 mg tablet, sublingual 0.4 mg sublingual Q5-15M PRN (Reason: chest pain) Qty: 25 3RF Rx Instructions: do not exceed 3 doses per episode azelastine 137 mcg (0.1 %) spray,non-aerosol 2 [...] meq PO DAILY brimonidine 0.2 % drops 1 drp ophthalmic (eye) QHS olopatadine 0.6 % spray,non-aerosol 2 spray intranasal DAILY Patient Comments: [NO ORIGINAL SIG] sennosides-docusate sodium [Senna Plus] 8.6-50 mg tablet 1 tab-cap PO QHS dorzolamide-timolol 22.3-6.8 mg/mL drops 1 drp ophthalmic (eye) BID ondansetron 4 mg tablet,disintegrating 4 mg PO Q4H PRN acetaminophen 500 mg capsule 500 mg PO Q6H PRN hydromorphone [Dilaudid] 2 mg tablet 2 mg PO Q6H mirabegron [Myrbetriq] 50 mg tablet extended release 24 hr See Rx Instructions PO QDAY Qty: 180 3RF Rx Instructions: 50mg tabs, take 2 tabs orally daily; 2 tabs once daily hydromorphone 2 mg tablet PO Probiotic Blend 2 billion cell-50 mg Capsule 1 cap PO DAILY donepezil 10 mg tablet 10 mg PO DAILY lidocaine 5 % Adhesive Patch,Medicated 1 patch topical DAILY Qty: 15 0RF Protocol: *Topical Application Instructions APPLICATION INSTRUCTIONS: right shoulder, anterior. gabapentin 100 mg capsule 300 mg PO QHS (DME) syringes BD ECLIPSE See Rx Instructions .Route .MEDSUPPLY Rx Instructions: Bd SYR/leticia Eclipse 3ml #4433 BD Sry/needle eclips See Rx Instructions IM .COMPLEX Qty: 12 0RF Rx Instructions: intramuscularly; 3ml #9363 uses 1 a month (DME) PEP device [...] DAILY PRN (Reason: edema) Qty: 30 0RF Prolia 60 mg/mL syringe 60 mg subcut [id number] Qty: 1 5RF lacosamide [Vimpat] 100 mg tablet 100 mg PO BID 20 Days Qty: 40 3RF albuterol sulfate 2.5 mg /3 mL (0.083 %) solution for nebulization 2.5 mg inhalation Q6H PRN (Reason: Sob &/Or Wheezing) Qty: 180 6RF ergocalciferol (vitamin D2) [Vitamin D2] 1,250 mcg (50,000 unit) capsule 1,250 mcg PO Q7D Qty: 12 3RF Primary Care Provider: Chema Perry Referrals: Chema Perry MD [Primary Care Provider] - As Needed Activity Restrictions/Additional Instructions: 1. Keep the wound clean and dry for the next 48 to 72 hours. 2. Do not remove the dressing for 48 hours 3. The Steri-Strips will probably fall off within 7 to 10 days 4. If there is any concern for infection see your doctor or return to the emergency department Print Language: Citizen Of [place] Disposition Disposition: Home, Self Care What to do if you have Problems For any increased pain, shortness of breath, bleeding, nausea or vomiting, chestpain, or any unexpected problems, contact your Primary Care Provider. Call [facility] ([phone]) or report to the closest Emergency Room. Call 911 if necessary. 05/03/25 1536 <Electronically signed by Chu Horowitz MD> Cosigner Signature (if applicable): CC: Dr. Chema Perry MD ~ Signed [facility] Work Phone: 1(355) 945-469109-16-2025 Hospital Discharge instructionsAdditional Instructions 1. Keep the wound clean and dry for the next 48 to 72 hours. 2. Do not remove the dressing for 48 hours 3. The Steri-Strips will probably fall off within 7 to 10 days 4. If there is any concern for infection see your doctor or [facility] the [facility] Work Phone: 1([phone]) 477-857709-15-[address] History of Present illness Narrative* Nahum Hernandez MD - 05/02/2025 5:27 PM EDT Images from the original note were not included. [facility] Subjective Lauren Alcaraz is a 84 year old female. Patient presents with: Laceration: Laceration on lower left leg, pt on blood thinners x 8 hrs Patient was using a razor blade for paper crafting and lost it in her pant leg. She cut her left lower leg this morning. She has had seeping bleeding still this evening. She has applied a zinc ointment. She is on eliquis blood thinner. Laceration Review of Systems Objective BP 120/66 Pulse 75 Temp 36.9 C (98.4 F) Resp 21 Wt 46 kg (101 lb 6.6 oz) LMP (LMP Unknown) SpO2 (!) 89% BMI 23.57 kg/m Physical Exam Constitutional: General: She is not in acute distress. Appearance: She is not ill-appearing. Comments: Accompanied by her . Musculoskeletal: Legs: Comments: 4 cm partial-thickness laceration medial aspect of the mid left lower leg. Sanguinous seeping. Wound was cleansed with isopropyl alcohol and dressed with Steri-Strips, nonadherent gauze pad, and Coban wrap. Neurological: Mental Status: She is alert. {ASSESSMENT/PLAN: 1. Laceration of left lower leg, initial encounter - ICD9: 891.0, ICD10: S81.812A No closure needed for partial skin thickness cut. Wound dressed. Non-dirty wound does not need prophylactic antibiotic or tetanus booster. Follow up with signs of infection such as increasing redness, pain, swelling, purulent drainage, orfever/malaise. aNhum Hernandez MD Differential Diagnoses - skin laceration Procedures [facility] Telephone encounter Note * Telephone Encounter - Gabriela Clifton MA - 04/25/2025 3:53 PM EDT Requested Prescriptions Pending Prescriptions Disp Refills potassium chloride ER (KLOR-CON) 20 mEq tablet 90 tablet 2 Sig: Take 1 tablet by mouth once daily. Last Ov, 12/20/24 Next Ov, 12/20/2025 [facility]09-08-2025 Miscellaneous Notes* Telephone Encounter - Gabriela Clifton MA - 04/25/2025 3:53 PM EDT Requested Prescriptions Pending Prescriptions Disp Refills potassium chloride ER (KLOR-CON) 20 mEq tablet 90 tablet 2 Sig: Take 1 tablet by mouth once daily. Last Ov, 12/20/24 Next Ov, 12/20/2025 * Telephone Encounter - Shanta Segovia - 04/25/2025 1:00 PM EDT Prescription Refill Information The patient has been identified by name and date of : Yes Caregiver verified no other encounters exist for this prescription request: Yes Caregiver confirmed with patient/requestor that no other refills are due, in the near future, with this provider at this time: Yes The last office visit in the department: 12/20/24 Does the patient have a future office visit with this provider/department: Yes Requested Prescriptions Pending Prescriptions Disp Refills potassium chloride ER (KLOR-CON) 20 mEq tablet 90 tablet 2 Sig: Take 1 tablet by mouth once daily. Shanta Gilbert April 25, 2025 1:01 PM documented in [facility] encounterDo[facility] Telephone encounter Note * Telephone Encounter - Shanta Segovia - 04/25/2025 1:00 PM EDT Prescription Refill Information The patient has been identified by name and date of : Yes Caregiver verified no other encounters exist for this prescription request: Yes Caregiver confirmed with patient/requestor that no other refills are due, in the near future, with this provider at this time: Yes The last office visit in the department: 12/20/24 Does the patient have a future office visit with this provider/department: Yes Requested Prescriptions Pending Prescriptions Disp Refills potassium chloride ER (KLOR-CON) 20 mEq tablet 90 tablet 2 Sig: Take 1 tablet by mouth once daily. Shanta Gilbert April 25, 2025 1:01 PM [facility]09-08-[facility] Telephone encounter Note* Telephone Encounter - Shanta Segovia - 04/25/2025 12:59 PM EDT Opened in error [facility]09-08-2025 Miscellaneous Notes* Telephone Encounter - Shanta Segovia - 04/25/2025 12:59 PM EDT Opened in error documented in this encounterDoctors Hospital08-31-2025 History of Present illness Narrative* Richard Beltran RT(R) - 04/17/2025 1:15 PM EDT Radiology Service Progress Note PATIENT NAME: Lauren Alcaraz DATE OF SERVICE: April 17, 2025 TIME: 1:28 PM PATIENT IDENTITY VERIFICATION COMPLETED USING TWO [...] PATIENT PRESENTS WITH AN IMPLANTABLE OR ATTACHED FIRE MANAGEMENT SPECIALIST: No RADIOLOGY DEPARTMENT: MR; Exam(s) Completed: Head: Routine Brain. Anesthesia: No. Aromatherapy Administered: No PERIPHERAL IV DATA: Not applicable SIGNED BY: RT Castillo(R) April 17, 2025 1:28 PM documented in this encounterDoctors Hospital08-31-2025 NoteHNO ID: [id number] Author: RICHARD BELTRAN RT(R) Service: ? Author Type: Technologist Type: Progress Notes Filed: 04/17/2025 13:29 Note Text: Radiology Service Progress Note PATIENT NAME: Lauren Alcaraz DATE OF SERVICE: April 17, 2025 TIME: 1:28 PM PATIENT IDENTITY VERIFICATION COMPLETED USING TWO [...] PATIENT PRESENTS WITH AN IMPLANTABLE OR ATTACHED FIRE MANAGEMENT SPECIALIST: No RADIOLOGY DEPARTMENT: MR; Exam(s) Completed: Head: Routine Brain. Anesthesia: No. Aromatherapy Administered: No PERIPHERAL IV DATA: Not applicable SIGNED BY: RT Castillo(R) April 17, 2025 1:28 [facility]08-26-2025 Discharge summary Author Gunnar Graves [facility] Note Date/Time April 12, 2025 8: 49am [facility] Physical Therapy [facility] [address] [place] [address] [address] [place] [address] / REHABILITATION SERVICES DISCHARGE SUMMARY MR#: [id number] Acct: [id number] Name: LAUREN ALCARAZ Rep #: [id number] : 1940 84 From: Gunnar Graves PT, ATC Referring Dr.: Dr. Chema Perry MD Status: REG RCR Insurance: MEDICARE PART [place] B [id number] Patient Information Patient Information: LAUREN GALEANO was seen in my office for initial evaluation on 01/12/25. The following Plan of Care was established for this patient: POC Established Initial Frequency: 2-3x /Week Initial Duration: 4-6 Weeks Anticipated Interventions Patient/Client Instruction: Educate patient on: Condition and Plan of Care For the Purpose of:: To improve muscle performance and motor function, To improve ability to perform ADL's and To increase tolerance to activity/condition/position Therapeutic Exercise to Include: Strength training, Endurance training, Balance training, Gait and locomotor training, Dynamic Lumbar Stabilization and ScapularStrength/Stabilization For the Purpose of:: To improve muscle performance and motor function, To improve ability to perform ADL's, To increase tolerance to activity/condition/position and To improve performance and independence with ADL's Last Seen Last Seen: This patient was last seen in our office . Pertinent comments regarding their Physical therapy will appear below: Pt has not returned in greater than 30 days and is discontinued at this time. At this point I will be discontinuing this patient from physical therapy. I would be happy to see this patient again in the future if found appropriate by the physician. Thank you! Gunnar Graves, PT, ATC Balance/Gait/Functional tests Balance/Special Test Scores Lower Extremity Functional Score: 13 <Electronically signed by Gunnar Graves PT, ATC> 04/12/25 0849 CC: Dr. Chema Perry MD ~ [facility] Signed [facility] Work Phone: 1(283) 867-781808-13-2025 Miscellaneous Notes* Telephone Encounter - Amber Phelps - 03/30/2025 10:34 AM EDT Anika from [facility] requesting refill for pt's Protonix be sent. Pt's last office visit: 12/03/24 follow up in 10 months No follow up appt. param'd yet. [facility] Telephone encounter Note * Telephone Encounter - Amber Phelps - 03/30/2025 10:34 AM EDT Anika from [facility] requesting refill for pt's Protonix be sent. Pt's last office visit: 12/03/24 follow up in 10 months No follow up appt. param'd yet. [facility] Progress note Author Janis Bhandari [facility] Note Date/Time March 22, 2025 11: 36am [facility] [address], [address] [place] [address] OFFICE VISIT Date of Service: 03/22/25 MR#: [id number] Acct: [id number] Name: LAUREN ALCARAZ p #: [phone] : 1940 Provider: Dr. Stan Bhandari MD Age/Sex: 84/F Location[place] [facility] Status: Signed Intake Vital Signs 02/06/25 13:53 03/14/25 11:38 03/22/25 11:16 Height 4 ft 7 in 4 ft 7 in 4 ft 7 in Weight: 107 lb BMI 24.8 BP 124/82 H Pulse 66 Intake Visit Reasons: 12MO CHRONIC UTI F/U Chief Complaint: 12month UTI follow up [facility] Required: No Accompanied by: Is patient in pain?: Yes (collar bone ) Pain scale (1-10): 4 Allergies doxycycline Allergy (Mild, Verified 03/22/25 11:11) Vomiting acetaminophen (From Percocet) Allergy (Verified 03/22/25 11:11) unknown lamotrigine (From Lamictal) Allergy (Verified 03/22/25 11:11) Lip Swelling moxifloxacin HCl (From Avelox) Allergy (Verified 03/22/25 11:11) Other propoxyphene napsylate (From Darvocet-N) Allergy (Verified 03/22/25 11:11) Other zolpidem (From Ambien) Allergy (Verified 03/22/25 11:11) unknown hydrocodone Adverse Reaction (Severe, Verified 03/22/25 11:11) Confusion oxycodone (From Percocet) Adverse Reaction (Severe, Verified 03/22/25 11:11) Confusion zolpidem tartrate (From Ambien) Adverse Reaction (Verified 03/22/25 11:11) Other Medications ?Medication ?Instructions ?Recorded ?Confirmed ?Type L.acidophil-L.casei-B.bifid-B.longum-FOS 1 cap PO MILTON Y Supplement 09/02/21 03/22/25 History 2 billion cell-50 mg capsule (Probiotic Blend) aspirin 81 mg tablet,delayed 81 mg PO DAILY 01/10/22 0 03/22/25 History release (Adult Aspirin Regimen) d-mannose 500 mg capsule 500 mg PO DAILY 06/07/2201/09 History famotidine 10 mg tablet 10 mg PO BID 06/07/22 History multivitamin 1 tab PO DAILY 06/07/2201/09 History mirabegron 50 mg tablet,extended 50 mg PO QHS Check wi th primary 01/29/23 03/22/25 History release 24 hr (Myrbetriq) doctor syringes BD ECLIPSE 04/11/23 03/22/25 History latanoprost 0.005 % eye drops 1 drp ophthalmic (eye) D AILY 08/13/23 03/22/25 History (Xalatan) nitroglycerin 0.4 mg sublingual 0.4 mg sublingual Q5-1 5M PRN chest 11/12/23 03/22/25 Rx tablet pain #25 tabs BD Sry/needle eclips See Rx Instructions IM .COMP SANDRA 02/23/24 03/22/25 Rx #12 ea azelastine 137 mcg (0.1 %) nasal 2 spray intranasal BI D 03/16/24 03/22/25 History spray cetirizine 10 mg capsule (Zyrtec) 10 mg PO DAILY PRN a llergy symptoms 03/16/24 03/22/25 History fluticasone propionate 50 1 spray intranasal DAILY 03/22/25 History mcg/actuation nasal spray,suspension (Allergy Relief (fluticasone)) PEP device #1 ea 04/06/24 03/22/25 Rx apixaban 5 mg tablet (Eliquis) 5 mg PO BID #180 tabs 1 03/22/25 Rx atorvastatin 40 mg tablet See Rx Instructions .Route 1 03/22/25 Rx .COMPLEX #90 tabs levothyroxine 50 mcg tablet 50 mcg PO DAILY Thyroid #9 0 tabs 06/08/24 03/22/25 Rx memantine 10 mg tablet 10 mg PO BID Alzheimer's #18 0 tabs 06/08/24 03/22/25 Rx pramipexole 0.5 mg tablet 0.5 mg PO BID #180 tabs 05/1903/22/25 Rx vortioxetine 20 mg tablet 20 mg PO DAILY DEPRESSION #9 0 tabs 06/08/24 03/22/25 Rx (Trintellix) brimonidine 0.2 % eye drops 1 drp ophthalmic (eye) QHS 10/14/24 03/22/25 History olopatadine 0.6 % nasal spray 2 spray intranasal DAILY 10/14/24 03/22/25 History pantoprazole 40 mg tablet,delayed 40 mg PO DAILY 10/1403/22/25 History release potassium chloride 20 mEq 20 meq PO DAILY 10/14/2401/09 History tablet,extended release(part/cryst) (Klor-Con M) furosemide 20 mg tablet 10 mg (1/2 x 20 mg) PO DAILY PRN 11/23/24 03/22/25 Rx edema #30 tabs denosumab 60 mg/mL subcutaneous 60 mg subcut [id number] #1 mL 01/24/25 03/22/25 Rx syringe (Prolia) gabapentin 100 mg capsule 300 mg PO QHS restless leg(s ) 02/03/25 03/22/25 History donepezil 10 mg tablet 10 mg PO DAILY 02/06/25 08/01/09 History ergocalciferol (vitamin D2) 1,250 1,250 mcg PO Q7D #7 caps 02/08/25 03/22/25 Rx mcg (50,000 unit) capsule (Vitamin D2) lacosamide 100 mg tablet (Vimpat) 100 mg PO BID 20 day s #40 tabs 02/08/25 03/22/25 Rx lidocaine 5 % topical patch 1 patch topical DAILY #15 ea 02/08/25 03/22/25 Rx acetaminophen 500 mg capsule 500 mg PO Q6H PRN 5 03/22/25 History dorzolamide 22.3 mg-timolol 6.8 1 drp ophthalmic (eye) BID 02/22/25 03/22/25 History mg/mL eye drops ondansetron 4 mg disintegrating 4 mg PO Q4H PRN 03/22/25 History tablet sennosides 8.6 mg-docusate sodium 1 tab-cap PO QHS 04/1103/22/25 History 50 mg tablet (Senna Plus) albuterol sulfate 2.5 mg/3 mL 2.5 mg (3 mL) inhalation Q6H PRN 03/10/25 03/22/25 Rx (0.083 %) solution for nebulization Sob &/Or Wheezing #180 mL hydromorphone 2 mg tablet mg PO 03/14/25 03/22/25 Hist ory hydromorphone 2 mg tablet 2 mg PO Q6H 03/22/25 5 History (Dilaudid) mirabegron 50 mg tablet,extended See Rx Instructions P O QDAY #180 03/22/25 03/22/25 Rx release 24 hr (Myrbetriq) tabs Have you fallen in the past year?: Yes (fell and broke right collar bone in January) [facility] Medical History (Updated 03/22/25 @ 11:[address] Janis Bhandari MD) Vaginal atrophy Malignant neoplasm of breast (female) Right clavicle fracture Leg edema Open wound of right lower [...] coronary artery (~1989) 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 Essential hypertension [...] disease Dementia Partial complex seizures Surgical History H/O: hysterectomy History of repair of hiatal hernia History [...] Anemia Grandmother Bowel disease Osteoporosis Ovarian cancer Other Heart disease Social History household members: spouse housing: house [...] feel safe at home: Yes HPI HPI Urology Chief Complaint: 12month UTI follow up Details: LAUREN ALCARAZ, is a 84 F. She is here for medication follow up. She has been taking Myrbetriq 100mg daily. She is not having side effects from the medication. She is doing great on this dose. She is sometimes not making it to the bathroom on time due to functional issues. Otherwise she is doing well. She just broke her collar bone in January. She would like to continue with this medication. She has not had any urinary tract infections since the last visit. She has not had any blood in the urine since the last visit. She has no new urologic concerns to discuss today. ROS Const Constitutional: No chills, fatigue, fever(s), headache(s), night sweats, weakness, weight change, abnormal sleep pattern or change in appetite Eyes Eyes: No change in vision ENT ENT: No headache(s) or dry mouth Resp Respiratory: No cough, chest congestion, shortness of breath or wheezing Cardio Cardiology: Positive for other (No chest pain.); No shortness of breath, irregular heart rhythm or lightheadedness Gastro GI: Positive for other (No nausea.); No abdominal pain, change in bowel habits, constipation, diarrhea or vomiting Musc Musculoskeletal: No abnormal gait Skin Skin: No yellowing of the eye, lesions, itchy eyes, rash or skin ulcer Neuro Neurology: No abnormal gait, confusion, dizziness, weakness, headache(s) or memory loss Psych Psychiatric: No abnormal sleep pattern, No change in appetite, No confusion and No memory loss Endo Endocrine: No fatigue, increased thirst/drinking or weight change Aller/Imm Allergy/Immunologic: No itchy eyes or wheezing Fercho/Lymp Hematologic/Lymphatic: No easy bleeding, easy bruising or enlarged lymph nodes Exam Const General: cooperative, healthy appearing, comfortable and no acute distress [facility] Head: normocephalic and atraumatic Ears: hearing grossly normal bilaterally and external ears normal Nose: external nose normal Eyes General: appearance normal, both eyes and all related structures Neck Neck: normal visual inspection and trachea midline Chest Chest palpation & inspection: normal inspection of the chest Resp Effort & Inspection: normal respiratory effort, able to speak in complete sentences and symmetric chest movement Cardio Rate: regular rate GI Inspection: normal to inspection Palpation: soft and nontender General: No CVA tenderness Musc Musculoskeletal: Yes spinal deformity Other: in Wheelchair today. Skin General: no rashes or lesions noted Neuro General: patient alert, patient awake, patient oriented x3 and CN's II-XI intactbilaterally Gait: other (unteady, slow) Extrem General: normal to inspection Psych Appearance: grossly normal and well kempt Mental Status: mental status grossly normal Office Procedures Post Void Residual Post Void Residual: 1cc Results POC UA Auto w/o Microscopy Office Urine Color Last Edit by Kitty Rao on 03/22/25 11:20 Office Urine Clarity Last Edit by Kitty Rao on 03/22/25 11:20 Office Urine Glucose Negative Last Edit by Kitty Rao on 03/22/25 11:2 0 Office Urine Ketones Negative Last Edit by Kitty Rao on 03/22/25 11:2 0 Office Urine Bilirubin Negative Last Edit by Kitty Rao on 03/22/25 11 :20 Office Urine Urobilinogen 2 mg/dL Last Edit by Kitty Rao on 03/22/25 11:20 Off Ur Spec [place] 1.015 Last Edit by Kitty Rao on 03/22/25 11:20 Office Urine pH 6 Last Edit by Kitty Rao on 03/22/25 11:20 Office Urine Protein Negative Last Edit by Kitty Rao on 03/22/25 11:2 0 Office Urine Blood Negative Last Edit by Kitty Rao on 03/22/25 11:20 Office Urine Blood Hemolyzed Negative Last Edit by Kitty Rao on 03/22 11:20 Office Urine Nitrate Negative Last Edit by Kitty Rao on 03/22/25 11:2 0 Off Ur Leukocytes Positive Last Edit by Kitty Rao on 03/22/25 11:20 Coding Level of Care Code Off vis,est,level 4 Diagnoses Urge incontinence N39.41 Nocturia R35.1 UTI (urinary tract infection) N39.0 Vaginal atrophy N95.2 Overactive bladder N32.81 Assessment and Plan Assessment and Plan (1) Urge incontinence: Status: Acute (2) Nocturia: Status: Acute (3) UTI (urinary tract infection): Status: Acute (4) Vaginal atrophy: Status: Acute (5) Overactive bladder: Status: Acute Orders: Orders POC UA Auto w/o Microscopy Today N39.0 - Urinary tract infection, site not specified PVR Today N39.41 - Urge incontinence Medications: New mirabegron ER (Myrbetriq) 50mg tabs, take 2 tabs orally daily; 2 tabs once daily 180 tabs 3RF Patient Instructions: Continue level 1 bladder management Continue Myrbetriq 100 mg daily with refill today Plan Details Follow Up: 12 Months (med f/u) Clinical Quality Measures Falls Risk Screening/Assistive Devices Have you fallen in the past year?: Yes (fell and broke right collar bone in January) 03/22/25 6876 <Electronically signed by Janis Bhandari MD> Date _ Janis Bhandari MD Cosigner Signature: Date (if applicable) CC: ~ [facility] Work Phone: 1(239) 452-304707-31-2025 Instructions* Patient Instructions* Laisha Lizarraga APRN.CNP - 03/17/2025 1:53 PM EDT Please have an EEG to rule out any breakthrough seizure activity-- please call [phone] or [phone] to schedule 2. Repeat MRI Brain -- please call [phone] to schedule this. 3. Try to make the Dilaudid doses stretch as long as possible- perhaps every 6 hrs at most 4. If any profound whole body shaking occurs accompanied by loss of consciousness- please call [phone] - this may be a seizure and is an emergency Follow up in ~3 months or sooner if all testing completed sooner documented in this encounterDo[facility] History of Present illness Narrative* Laisha Lizarraga APRN.CNP - 03/17/2025 1:00 PM EDT Images from the original note were not included. Lauren Alcaraz 1940 [address] [facility] [address] March 17, 2025 [facility] FOLLOW-UP NOTE Accompanied by: spouse Delroy Alcaraz is a pleasant 84 year old female seen today for a follow up visit. 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 Please schedule Cognitive/Speech Therapy sessions- by calling [phone]. I know there are therapists in the [place] area 3. Can consider getting back into OT later if you need a refresher 4. Can discuss with Dr. Logan re: potentially increasing the gabapentin dose for the neuropathy /RLS For now, I will increase this to 200mg daily. I would like Dr. Logan to later consider taking over refills of this medication. 5. Consider asking the Senior Clerk about your R eyelid ptosis, I am not sure that there is a clear neurological cause for this. Follow up in ~3 months Today, Lauren and her spouse returns for a routine follow up visit. Lauren reports feeling unwell for the past five days, with blood pressure readings around 96/49 mmHgand oxygen saturation levels not exceeding 85%, despite using supplemental oxygen at 2 L/min via nasal cannula. She experiences shortness of breath but does not endorse a cough. She has also been feeling unusually sleepy. Lauren has been experiencing tremors in her hands and feet for the past week to ten days, which varyin intensity throughout the day. These tremors have been observed by her caregiver and . Khangins alert during these episodes and does not report unresponsiveness. The tremors interfere with daily activities, such as holding a laptop or a glass of water. She also reports numbness and tingling in her legs, which is not new. 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 She believes that she might be having some hallucinations-- will ask Delroy about something she thinks she's seeing but then realize it may not have been real. Of note: Lauren has been taking Dilaudid 2 mg every four to six hours for pain management since breaking her clavicle. She reports waking up at night due to pain and takes Dilaudid every four hours tomanage it. She also takes acetaminophen every four hours for breakthrough pain. She has been using D ilaudid since the end of January or beginning of February and reports that it is the only pain medication that effectively relieves her pain. She does not take Percocet or other pain medications. Lauren has a history of a hiatal hernia, which was surgically repaired. She reports that her oxygen levels may be affected by her clavicle injury, which restricts her ability to take deep breaths. Reba reports new ptosis of the right eye and has been diagnosed with glaucoma. (Per chart review-- Ptosis was documented on a prior encounter- so is not acutely new) Lauren has a caregiver who assists her for four to six hours a day, every day of the week. She reports that her appetite is reasonable, and she eats well. She does not endorse any new numbness or tingling in her face. She expresses frustration at how poorly she feels, and the degree of pain she has that makes it hard for her to get comfortable at night, along w/ the other symptoms above. Vital Signs: BP (!) 96/49 Pulse 70 LMP (LMP Unknown) Current Outpatient Medications on File Prior to Visit Medication Sig brimonidine (ALPHAGAN) 0.2 % ophthalmic solution Use 1 drop in the right eye every 12 hours. furosemide (LASIX) 20 mg tablet Take 1 tablet by mouth once daily. gabapentin (NEURONTIN) 100 mg capsule Take 2 capsules by mouth once daily for 180 days. dorzolamide-timolol (COSOPT) 22.3-6.8 mg/mL ophthalmic solution Use 1 Drop in both eyes two times aday. traMADol 25 mg tablet Take 25 mg [...] 1,000 mcg intramuscularly once every month. Vitamin [id number] ammonium lactate (LAC-HYDRIN) 12 % lotion MULTIVITAMIN [...] normal Facial expression: sad Psychomotor: normal Speech/Language: unremarkable -can name, repeat with no dysarthria Mood: frustrated Affect: pleasant PDW:no SI:no Self-injurious [...] droop or flattening of nasal labial fold At times her R eye seems to have mild ptosis, and is sometimes closed (she does this purposefully) VIII: Hearing is normal to finger rub bilaterally IX, X: Uvula elevates in the midline XI: Sternocleidomastoid and trapezius have normal strength XII: Tongue protrudes in the midline Motor Strength is 5/5 in upper and lower extremities Finger strength is normal bilaterally Normal muscle bulk with no fasciculations Upper extremity rigidity is 0: Normal bilaterally No resting tremor No bradykinesia, abnormal movements or postural instability Horizontal arm extension: mild postural tremor bialterally Pronator drift: negative Coordination Cerebellar: no dysmetria or dysdiadochokinesis, normal pronation/supination Cerebrospinal tract: Toe tap normal bilaterally, Leg raise normal bilaterally Finger fine motor: Tap w/ thumb normal bilaterally, Flex./ext. normal bilaterally Finger to nose: good, with mild kinetic tremor bialterally Diagnostic Results: MRI Brain from 12/04/22 IMPRESSION: [...] from 2007 DATE: June 15, 2008 NO: [id number] Indication: Question of seizure Medications: None given [...] disturbance, or anxiety (HCC) (primary encounter diagnosis) (R25.1) Episode of shaking (Z87.898) History of seizures (R41.82) Fluctuating mental status (H02.401) Ptosis of right eyelid PLAN: Please have an EEG to rule out any breakthrough seizure activity-- please call [phone] or [phone] to schedule 2. Repeat MRI Brain -- please call [phone] to schedule this. 3. Try to make the Dilaudid doses stretch as long as possible- perhaps every 6 hrs at most 4. If any profound whole body shaking occurs accompanied by loss of consciousness- please call [phone] - this may be a seizure and is an emergency Follow up in ~3 months or sooner if all testing completed sooner I spent a total of 40 minutes on the date of service which included [id number] patient care and counseling and educating the patient/spouse. Laisha Lizarraga, MSN, CLIENT DELIVERY SPECIALIST-C, CNRN CC: 1. No primary care provider on file., (fax) None documented in [facility] Telephone encounter Note* Telephone Encounter - Stormy Aquino RN - 03/15/2025 4:30 PM EDT Noted. Stormy Aquino RN [facility] Work Phone: 1(178) 332-575907-29-2025 Miscellaneous Notes* Telephone Encounter - Stormy Aquino RN - 03/15/2025 4:30 PM EDT Noted. Stormy Aquino RN * Telephone Encounter - Stormy Aquino RN - 03/11/2025 5:10 PM EDT Spoke with the patient and her , Delroy. 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 She has a history of complex partial seizures. For the past two to three days she has been experiencing episodes of bilateral hand and leg tremorsthat she cannot control. The episodes last for approximately fifteen minutes. She has experienced five episodes since this morning. She reports feeling more somnolent after these episodes. She was advised that she needs an immediate evaluation at her closest emergency room. They verbalized understanding. They refused to call 911. Dleroy is taking her to [facility]. Stormy Aquino RN documented in this encounterDoctors Hospital07-25-2025 Radiology Diagnostic study [facility]07-25-2025 Radiology Diagnostic study note [facility]07-25-2025 Telephone encounter Note* Telephone Encounter - Stormy Aquino RN - 03/11/2025 5:10 PM EDT Spoke with the patient and her , Delroy. 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 She has a history of complex partial seizures. For the past two to three days she has been experiencing episodes of bilateral hand and leg tremorsthat she cannot control. The episodes last for approximately fifteen minutes. She has experienced five episodes since this morning. She reports feeling more somnolent after these episodes. She was advised that she needs an immediate evaluation at her closest emergency room. They verbalized understanding. They refused to call 911. Delroy is taking her to [facility]. Stormy Aquino RN [facility]07[facility] Discharge summary Author David Gagnon [facility] Note Date/Time March 11, 2025 10:5 3pm [facility] System Medical Records Department [address] [place] [address] Emergency Department Summary 03/11/25 MR#: [id number] Acct: [id number] Name: LAUREN ALCARAZ JERONIMO VENECIA Rep # :[id number] : 1940 84 From: David Gagnon MD PCP: Dr. Chema Perry MD Status:REG ER Location: ED HPI History of Present Illness Chief Complaint: Other, Pain/Inj Informant: patient and spouse/S.O. Narrative Narrative: 84-year-old female presenting to the ER with multiple complaints. The main one is that she has a new intermittent tremor that has been occurring mostly in bothlegs, she thinks it is worse in the right but it occurs in both simultaneously, for 10 minutes at a time for the past 3 days. She is awake and aware during this. She has a history of complex partial seizures in which case she was not awake/aware and would have episodes where she would suddenly stop talking and stare off or talk nonsensically. This was diagnosed by continuous EEG, she has been on Vimpat for this for a couple of decades and basically had no major issues. She also has had worse dyspnea on exertion and orthopnea compared to usual, and she has chronic edema in her legs that that has been thinks is worse. She denies any chest discomfort. She denies major cough, no fevers or chills. Also she broke her right distal clavicle a month or so ago, and she has been having constant pain with it. She states orthopedics has referred her to a specialist, they want to do surgery but she is a very poor surgical candidate and they are afraid that it may not be the best maneuver if she may not do well with it, this is according to the patient. Also states she has had some vomiting and diarrhea off and on lately. In addition, she has had ptosis of theright eye for maybe the past 6 months she states. [facility] Medical History Right clavicle fracture Leg edema Open wound of right lower [...] coronary artery (~1989) 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 Essential hypertension [...] 1 cap PO MILTON Y Supplement 09/02/21 02/05/25 History 2 billion cell-50 mg capsule (Probiotic Blend) aspirin 81 mg tablet,delayed 81 mg PO DAILY 01/10/22 0 02/05/25 History release (Adult Aspirin Regimen) d-mannose 500 mg capsule 500 mg PO DAILY 06/07/22 History famotidine 10 mg tablet 10 mg PO BID 06/07/22 History multivitamin 1 tab PO DAILY 06/07/2201/17 History mirabegron 50 mg tablet,extended 50 mg PO QHS Check wi th primary 01/29/23 0 02/05/25 History release 24 hr (Myrbetriq) doctor syringes BD ECLIPSE 04/11/23 Unknown History latanoprost 0.005 % eye drops 1 drp ophthalmic (eye) D AILY 08/13/23 02/05/25 History (Xalatan) nitroglycerin 0.4 mg sublingual 0.4 mg sublingual [...] fluticasone propionate 50 1 spray intranasal DAILY 02/05/25 History mcg/actuation nasal spray,suspension (Allergy Relief (fluticasone)) PEP device #1 ea 04/06/24 Unknown Rx apixaban 5 mg tablet (Eliquis) 5 mg PO BID #180 tabs 1 02/05/25 Rx atorvastatin 40 mg tablet See Rx Instructions .Route 1 02/05/25 Rx .COMPLEX #90 tabs levothyroxine 50 mcg tablet 50 mcg PO DAILY Thyroid #9 0 tabs 06/08/24 02/05/25 Rx memantine 10 mg tablet 10 mg PO BID Alzheimer's #18 0 tabs 06/08/24 02/05/25 Rx pramipexole 0.5 mg tablet 0.5 mg PO BID #180 tabs 05/1902/05/25 Rx vortioxetine 20 mg tablet 20 mg PO DAILY DEPRESSION #9 0 tabs 06/08/24 02/05/25 Rx (Trintellix) brimonidine 0.2 % eye drops 1 drp ophthalmic (eye) QHS 10/14/24 02/05/25 History olopatadine 0.6 % nasal spray 2 spray intranasal DAILY 10/14/24 Unknown History pantoprazole 40 mg tablet,delayed 40 mg PO DAILY 10/1402/05/25 History release potassium chloride 20 mEq 20 meq PO DAILY 10/14/24 History tablet,extended release(part/cryst) (Klor-Con M) furosemide 20 mg tablet 10 mg (1/2 x 20 mg) PO DAILY PRN 11/23/24 Unknown Rx edema #30 tabs denosumab 60 mg/mL subcutaneous 60 mg subcut [id number] #1 mL 01/24/25 Unknown Rx syringe (Prolia) gabapentin 100 mg capsule 300 mg PO QHS restless leg(s ) 02/03/25 02/05/25 History donepezil 10 mg tablet 10 mg PO DAILY 02/06/2501/17 History ergocalciferol (vitamin D2) 1,250 1,250 mcg PO Q7D #7 caps 02/08/25 Unknown Rx mcg (50,000 unit) capsule (Vitamin D2) lacosamide 100 mg tablet (Vimpat) 100 mg PO BID 20 day s #40 tabs 02/08/25 Unknown Rx lidocaine 5 % topical patch 1 patch topical DAILY #15 ea 02/08/25 Unknown Rx acetaminophen 500 mg capsule 500 mg PO Q6H PRN 5 Unknown History dorzolamide 22.3 mg-timolol 6.8 1 drp ophthalmic (eye) BID 02/22/25 Unknown History mg/mL eye drops ondansetron 4 mg disintegrating 4 mg PO Q4H PRN Unknown History tablet sennosides 8.6 mg-docusate sodium 1 tab-cap PO QHS 04/11 Unknown History 50 mg tablet (Senna Plus) albuterol sulfate 2.5 mg/3 mL 2.5 mg (3 mL) inhalation Q6H PRN 03/10/25 Unknown Rx (0.083 %) solution for nebulization Sob &/Or Wheezing #180 mL Allergy/AdvReac Type Severity Reaction Status Date / Time doxycycline Allergy Mild Vomiting Verified 03/11/25 18:09 lamotrigine (From Lamictal) Allergy Lip Verified 03/11/25 18:09 Swelling moxifloxacin HCl (From Allergy Other Verified 03/11/25 18:09 Avelox) propoxyphene napsylate (From Allergy Other Verified 03/11/25 18:09 Darvocet-N) hydrocodone AdvReac Severe Confusion Verified 03/11/25 18:09 oxycodone (From Percocet) AdvReac Severe Confusion Verified 03/11/25 18:09 zolpidem tartrate (From AdvReac Other Verified 03/11/25 18:09 Ambien) Family History Mother CVA (cerebral vascular [...] Yes ROS ROS ED Constitutional Constitutional ED: Reports fatigue; Denies chills or fever(s) Eyes Eyes: Denies change in vision or diplopia ENT ENT ED: Denies rhinorrhea or sore throat Cardiovascular Cardiovascular: Reports leg edema and orthopnea; Denies chest pain or palpitations Respiratory/Chest Respiratory/Chest: Reports dyspnea on exertion and orthopnea; Denies cough Gastrointestinal Gastrointestinal: Reports diarrhea, nausea and vomiting; Denies abdominal pain Genitourinary Genitourinary ED: Denies dysuria or hematuria Musculoskeletal Musculoskeletal: Denies back pain or neck pain Integumentary Denies abscess or rash Neurologic Neurologic: Reports as per HPI and tremor(s); Denies headache(s), paresthesias or weakness Psychiatric Psychiatric: Denies suicidal thoughts EXAM Physical Exam Const Vital Signs: 03/11/25 18:08 03/11/25 18:33 03/11/25 18:43 Temperature 98.3 F Temperature Source Oral Pulse Rate 77 Respiratory Rate 18 Respiratory Effort Normal Non-Labored Blood Pressure 163/136 H Blood Pressure Mean 145 Pulse Ox 99 Oxygen Delivery Method Room Air Room Air Oxygen Flow Rate (L/min) 03/11/25 20:00 Temperature Temperature Source Pulse Rate 65 Respiratory Rate 18 Respiratory Effort Blood Pressure 122/61 H Blood Pressure Mean 81 Pulse Ox 97 Oxygen Delivery Method Nasal Cannula Oxygen Flow Rate (L/min) 2 Positive well nourished and well developed General Appearance ED: well developed and NAD HEENT Reports moist mucous membranes HEENT Narrative: Mild right eye ptosis. No lower facial droop. normocephalic and atraumatic Eyes PERRL and EOMs intact bilaterally Neck full ROM and supple Resp normal respiratory effort and clear to auscultation bilaterally Cardio regular rate and regular rhythm GI non-tender and non-distended Auscultation: normoactive bowel sounds Palpation: soft Back/Spine no CVA tenderness Back/Spine Narrative: Very kyphotic General Back: other FROM Extremity normal to inspection General Extremety ED: Yes edema; Negative for pulses abnormal or tenderness General Extremity: edema bilateral lower extremity Details: moderate (To mid barry bilaterally and symmetrically); Negative for pulses abnormal Neuro oriented x3, CN's II-XII intact bilaterally and no sensory deficits noted 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 Cardiac workup along with a proBNP, the proBNP is well within normal limits ruling out acute decompensated congestive heart failure. Her initial troponin is nonspecifically elevated, the second 1 is trending down, arguing against acute coronary syndrome and I do not think we need to do more measurements. She is little prerenal so she was given IV fluids, possibly she is having muscle spasms in her legs related to this. Her potassium was slightly elevated but this is due to hemolysis and I do not think it is actually elevated. Her blood counts are noted and unremarkable. I did a CT of the head given the possibility of this being seizure-like activity and proptosis on the right that although she states it has been there for 6 months is relatively new. My interpretation it is unremarkable radiology was in agreement. Similarly, chest x-ray was obtained since she is complaining of new dyspnea and cough, 2 views of my interpretation showed no pneumonia radiology also in agreement showing chronic abnormalities. Patient is doing well she is not having this tremor while she is here in her legs. At this time my suspicionbased on the history is this is very unlikely to be seizure activity. I do not think she needs to be admitted for continuous EEG monitoring at this time. She states she has an appointment with neurology within the next 1-2 weeks, they aregoing to call and see if they can move that up after the weekend which I think is reasonable. We discussed reasons to return she is comfortable with that mendoza is . Lab Data Attestation: I reviewed the patient's lab results. Labs: Laboratory Results - last 24 hr 03/11/25 03/11/25 18:45 20:53 WBC 5.6 RBC 3.37 L Hgb 9.5 L Hct 31.6 L MCV 93.8 MCH 28.2 MCHC 30.1 L RDW Std Deviation 53.4 H RDW Coeff of Jorge 15.5 H Plt Count 196 MPV 11.2 Immature Gran % (Auto) 0.200 Neut % (Auto) 52.7 Lymph % (Auto) 30.9 Carver % (Auto) 9.1 Eos % (Auto) 6.6 H Baso % (Auto) 0.5 Absolute Neuts (auto) 2.9 Absolute Lymphs (auto) 1.73 Nucleated RBC % 0 Sodium 140 Potassium 5.2 H Chloride 104 Carbon Dioxide 27.4 Anion Gap 9 BUN 23 H Creatinine 1.01 Estim Creat Clear Calc 30.85 L Est GFR (MDRD) Non-Af 56 L BUN/Creatinine Ratio 22.9 H Glucose 114 H Calcium 8.3 Troponin T High Sens 27 H Troponin T Hi Sens 2 Hr 24 H NT pro BNP II 346 Radiography Diagnostic Testing: Clinical Impression(s) from Imaging Studies Brain CT 03/11/25 18:37 IMPRESSION: NO ACUTE FINDINGS Reading Location: [facility] Chest X-Ray 03/11/25 19:00 IMPRESSION: Chronic findings suggestive of COPD/scarring. 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 Instructions: IV Infiltration Dc, ED Peripheral Edema, Bilateral Prescriptions: No Action Myrbetriq 50 mg tablet extended release 24 hr 50 mg PO QHS aspirin [Adult Aspirin Regimen] 81 mg tablet,delayed release (DR/EC) 81 mg PO DAILY multivitamin Tablet 1 tab PO DAILY famotidine 10 mg tablet 10 mg PO BID d-mannose 500 mg capsule 500 mg PO DAILY latanoprost [Xalatan] 0.005 % drops 1 drp ophthalmic (eye) DAILY nitroglycerin 0.4 mg tablet, sublingual 0.4 mg sublingual Q5-15M PRN (Reason: chest pain) Qty: 25 3RF Rx Instructions: do not exceed 3 doses per episode azelastine 137 mcg (0.1 %) spray,non-aerosol 2 [...] meq PO DAILY brimonidine 0.2 % drops 1 drp ophthalmic (eye) QHS olopatadine 0.6 % spray,non-aerosol 2 spray intranasal DAILY Patient Comments: [NO ORIGINAL SIG] sennosides-docusate sodium [Senna Plus] 8.6-50 mg tablet 1 tab-cap PO QHS dorzolamide-timolol 22.3-6.8 mg/mL drops 1 drp ophthalmic (eye) BID ondansetron 4 mg tablet,disintegrating 4 mg PO Q4H PRN acetaminophen 500 mg capsule 500 mg PO Q6H PRN Probiotic Blend 2 billion cell-50 mg Capsule 1 cap PO DAILY donepezil 10 mg tablet 10 mg PO DAILY ergocalciferol (vitamin D2) [Vitamin D2] 1,250 mcg (50,000 unit) Capsule 1,250 mcg PO Q7D Qty: 7 0RF lidocaine 5 % Adhesive Patch,Medicated 1 patch topical DAILY Qty: 15 0RF Protocol: *Topical Application Instructions APPLICATION INSTRUCTIONS: right shoulder, anterior. gabapentin 100 mg capsule 300 mg PO QHS (DME) syringes BD ECLIPSE See Rx Instructions .Route .MEDSUPPLY Rx Instructions: Bd SYR/leticia Eclipse 3ml #4787 BD Sry/needle eclips See Rx Instructions IM .COMPLEX Qty: 12 0RF Rx Instructions: intramuscularly; 3ml #8590 uses 1 a month (DME) PEP device [...] DAILY PRN (Reason: edema) Qty: 30 0RF Prolia 60 mg/mL syringe 60 mg subcut [id number] Qty: 1 5RF lacosamide [Vimpat] 100 mg tablet 100 mg PO BID 20 Days Qty: 40 3RF albuterol sulfate 2.5 mg /3 mL (0.083 %) solution for nebulization 2.5 mg inhalation Q6H PRN (Reason: Sob &/Or Wheezing) Qty: 180 6RF Primary Care Provider: Chema Perry Referrals: your neurologist [Other] - Keep Param appointment Chema Perry MD [Primary Care Provider] - Print Language: Citizen Of [place] Disposition Disposition: Home, Self Care What to do if you have Problems For any increased pain, shortness of breath, bleeding, nausea or vomiting, chestpain, or any unexpected problems, contact your Primary Care Provider. Call [facility] ([phone]) or report to the closest Emergency Room. Call 911 if necessary. 03/11/252252 <Electronically signed by David Gagnon MD> Cosigner Signature (if applicable): CC: Dr. Chema Perry MD ~ Signed [facility] Work Phone: [phone] 161-649507-08-2025 Progress note Author Damien Burleson [facility] Note Date/Time February 22, 2025 2:21p m [facility] [address] [place] [id number] OFFICE VISIT Date of Service: 02/22/25 MR#: [id number] Acct: [id number] Name: LAUREN ALCARAZ Rep #: [id number] : 1940 Provider: Dr. Michael Burleson MD Age/Sex: 84/F Location[facility] Status: Signed Intake Vital Signs 02/06/25 13:53 Height 4 ft 7 in Intake Visit Reasons: RIGHT CLAVICLE Accompanied by: Is patient in pain?: Yes Pain scale (1-10): 10 Allergies doxycycline Allergy (Mild, Verified 02/22/25 13:11) Vomiting lamotrigine (From Lamictal) Allergy (Verified 02/22/25 13:11) Lip Swelling moxifloxacin HCl (From Avelox) Allergy (Verified 02/22/25 13:11) Other propoxyphene napsylate (From Darvocet-N) Allergy (Verified 02/22/25 13:11) Other hydrocodone Adverse Reaction (Severe, Verified 02/22/25 13:11) Confusion oxycodone (From Percocet) Adverse Reaction (Severe, Verified 02/22/25 13:11) Confusion zolpidem tartrate (From Ambien) Adverse Reaction (Verified 02/22/25 13:11) Other Medications ?Medication ?Instructions ?Recorded ?Confirmed ?Type L.acidophil-L.casei-B.bifid-B.longum-FOS 1 cap PO MILTON Y Supplement 09/02/21 02/22/25 History 2 billion cell-50 mg capsule (Probiotic Blend) aspirin 81 mg tablet,delayed 81 mg PO DAILY 01/10/22 0 02/22/25 History release (Adult Aspirin Regimen) d-mannose 500 mg capsule 500 mg PO DAILY 06/07/2204/11 History famotidine 10 mg tablet 10 mg PO BID 06/07/22 History multivitamin 1 tab PO DAILY 06/07/22 07/0 04/11 History mirabegron 50 mg tablet,extended 50 mg PO QHS Check wi th primary 01/29/23 02/22/25 History release 24 hr (Myrbetriq) doctor albuterol sulfate 2.5 mg/3 mL 2.5 mg (3 mL) inhalation Q6H PRN 04/07/23 02/22/25 Rx (0.083 %) solution for nebulization Sob &/Or Wheezing #180 mL syringes BD ECLIPSE 04/11/23 02/22/25 History latanoprost 0.005 % eye drops 1 drp ophthalmic (eye) D AILY 08/13/23 02/22/25 History (Xalatan) nitroglycerin 0.4 mg sublingual 0.4 mg sublingual Q5-1 5M PRN chest 11/12/23 02/22/25 Rx tablet pain #25 tabs BD Sry/needle eclips See Rx Instructions IM .COMP SANDRA 02/23/24 02/22/25 Rx #12 ea azelastine 137 mcg (0.1 %) nasal 2 spray intranasal BI D 03/16/24 02/22/25 History spray cetirizine 10 mg capsule (Zyrtec) 10 mg PO DAILY PRN a llergy symptoms 03/16/24 02/22/25 History fluticasone propionate 50 1 spray intranasal DAILY 02/22/25 History mcg/actuation nasal spray,suspension (Allergy Relief (fluticasone)) PEP device #1 ea 04/06/24 02/22/25 Rx apixaban 5 mg tablet (Eliquis) 5 mg PO BID #180 tabs 1 02/22/25 Rx atorvastatin 40 mg tablet See Rx Instructions .Route 1 02/22/25 Rx .COMPLEX #90 tabs levothyroxine 50 mcg tablet 50 mcg PO DAILY Thyroid #9 0 tabs 06/08/24 02/22/25 Rx memantine 10 mg tablet 10 mg PO BID Alzheimer's #18 0 tabs 06/08/24 02/22/25 Rx pramipexole 0.5 mg tablet 0.5 mg PO BID #180 tabs 10/10/1102/22/25 Rx vortioxetine 20 mg tablet 20 mg PO DAILY DEPRESSION #9 0 tabs 06/08/24 02/22/25 Rx (Trintellix) brimonidine 0.2 % eye drops 1 drp ophthalmic (eye) QHS 10/14/24 02/22/25 History olopatadine 0.6 % nasal spray 2 spray intranasal DAILY 10/14/24 02/22/25 History pantoprazole 40 mg tablet,delayed 40 mg PO DAILY 10/1402/22/25 History release potassium chloride 20 mEq 20 meq PO DAILY 10/14/2404/11 History tablet,extended release(part/cryst) (Klor-Con M) furosemide 20 mg tablet 10 mg (1/2 x 20 mg) PO DAILY PRN 11/23/24 02/22/25 Rx edema #30 tabs denosumab 60 mg/mL subcutaneous 60 mg subcut [id number] #1 mL 01/24/25 02/22/25 Rx syringe (Prolia) gabapentin 100 mg capsule 300 mg PO QHS restless leg(s ) 02/03/25 02/22/25 History donepezil 10 mg tablet 10 mg PO DAILY 02/06/2504/11 History ergocalciferol (vitamin D2) 1,250 1,250 mcg PO Q7D #7 caps 02/08/25 02/22/25 Rx mcg (50,000 unit) capsule (Vitamin D2) lacosamide 100 mg tablet (Vimpat) 100 mg PO BID 20 day s #40 tabs 02/08/25 02/22/25 Rx lidocaine 5 % topical patch 1 patch topical DAILY #15 ea 02/08/25 02/22/25 Rx hydromorphone 2 mg tablet 1 mg (1/2 x 2 mg) PO Q6H PRN pain 02/21/25 02/22/25 Rx 10 days #20 tabs acetaminophen 500 mg capsule 500 mg PO Q6H PRN 5 02/22/25 History dorzolamide 22.3 mg-timolol 6.8 1 drp ophthalmic (eye) BID 02/22/25 02/22/25 History mg/mL eye drops ondansetron 4 mg disintegrating 4 mg PO Q4H PRN 02/22/25 History tablet sennosides 8.6 mg-docusate sodium 1 tab-cap PO QHS 04/1102/22/25 History 50 mg tablet (Senna Plus) Have you fallen in the past year?: Yes [facility] Medical History Right clavicle fracture Leg edema Open wound of right lower [...] coronary artery (~1989) 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 Essential hypertension [...] Partial complex seizures Surgical History History of repair of hiatal [...] you feel safe at home: Yes HPI RIGHT CLAVICLE Details: This documentation accurately reflects the service provided and the decisions made by me, Dr. Damien Burleson MD 02/22/25 9753. Part of today?s visit was documented by [ ], acting as scribe. LAUREN ALCARAZ is a 84 year old F here today for 3 weeks follow-up of right distal clavicle fracture with superior displacement. still having shoulder pain and prominence there. Supplemental Info Distal clavicle fracture. No attempt at union. There is again superior displacement of the medial fracture fragment Coding Level of Care Code Off vis,est,level 4 Diagnoses Right clavicle fracture S42.001A Assessment and Plan Assessment and Plan (1) Right clavicle fracture: Status: Acute Plan: LAUREN ALCARAZ is a 84 year old F here today for 3 weeks follow-up of right distal clavicle fracture with superior displacement. Had a very long conversation about the pain medications and treatment overall. Sees Dr. Perry and Dr. Logan for chronic pain medications. Let them know should FU with her pain specialist with regards to the chronic pain medications. Sling only PRN for pain. Could consider a DCE which may help off load the skin, but would have to clear by anesthesia team. (not ideal for CC lig recon, hook plate, or even a clavicle recon plate with distal extension given poor healing potential of this patient. Will continue treating non op and FU in 2 months to see how the pain is. Orders: Orders Clavicle Today S42.001A - Fracture of unspecified part of right clavicle, initial encounter for closed fracture Clinical Quality Measures Falls Risk Screening/Assistive Devices Have you fallen in the past year?: Yes Ortho Exam General General: Yes no acute distress Neurologic: Yes alert and Yes oriented x3 Psychologic: Yes reasonable and appropriate Right Shoulder Skin/Wound: Yes CDI, No ecchymosis, No erythema and Yes swelling SHOULDER: mild shoulder pain at the tip of the clavicle at the fracture site. 02/22/25 1421 <Electronically signed by Damien cabrera MD> Date _ Damien Burleson MD Cosigner Signature: Date (if applicable) CC: ~ [facility] [employer] Work Phone: [phone]) [phone] Consult note Author Jessi Haro [facility] Note Date/Time February 08, 2025 12:0 4pm [facility] Medical Records Department [address] [place] [address] Counseling Note - Pharmacy 02/08/25 1203 MR#: [id number] Acct: [id number] Name: LAUREN ALCARAZ Rep #: [id number] : 1940 84 From: Jessi Haro PCP: Dr. Chema Perry MD Status:ADM COMFORT Y Location: [address] Med Reconciliation Pharmacy Service has performed discharge medication reconciliation for this patient. The patient's discharge medication list was reviewed for discrepancies and discrepancies were resolved. Medications at Discharge Home Medications L.acidophil-L.casei-B.bifid-B.longum-FOS 2 billion cell-50 mg capsule (ProbioticBlend) 1 cap PO DAILY Supplement 09/02/21 aspirin 81 mg tablet,delayed release (Adult Aspirin Regimen) 81 mg PO DAILY 01/10/22 d-mannose 500 mg capsule 500 mg PO DAILY 06/07/22 famotidine 10 mg tablet 10 mg PO BID 06/07/22 multivitamin 1 tab PO DAILY 06/07/22 mirabegron 50 mg tablet,extended release 24 hr (Myrbetriq) 50 mg PO QHS Check with primary doctor 01/29/23 albuterol sulfate 2.5 mg/3 mL (0.083 %) solution for nebulization 2.5 mg (3 mL) inhalation Q6H PRN Sob &/Or Wheezing #180 mL 04/07/23 syringes BD ECLIPSE 04/11/23 latanoprost 0.005 % eye drops (Xalatan) 1 drp ophthalmic (eye) DAILY 08/13/23 nitroglycerin 0.4 mg sublingual tablet 0.4 mg sublingual Q5-15M PRN chest pain #25 tabs 11/12/23 BD Sry/needle eclips See Rx Instructions IM .COMPLEX #12 ea 02/23/24 azelastine 137 mcg (0.1 %) nasal spray 2 spray intranasal BID 03/16/24 cetirizine 10 mg capsule (Zyrtec) 10 mg PO DAILY PRN allergy symptoms 03/16/24 fluticasone propionate 50 mcg/actuation nasal spray,suspension (Allergy Relief (fluticasone)) 1 spray intranasal DAILY 03/16/24 PEP device #1 ea 04/06/24 apixaban 5 mg tablet (Eliquis) 5 mg PO BID #180 tabs 06/08/24 atorvastatin 40 mg tablet See Rx Instructions .Route .COMPLEX #90 tabs 06/08/24 levothyroxine 50 mcg tablet 50 mcg PO DAILY Thyroid #90 tabs 06/08/24 memantine 10 mg tablet 10 mg PO BID Alzheimer's #180 tabs 06/08/24 pramipexole 0.5 mg tablet 0.5 mg PO BID #180 tabs 06/08/24 vortioxetine 20 mg tablet (Trintellix) 20 mg PO DAILY DEPRESSION #90 tabs 06/08/24 brimonidine 0.2 % eye drops 1 drp ophthalmic (eye) QHS 10/14/24 olopatadine 0.6 % nasal spray 2 spray intranasal DAILY 10/14/24 pantoprazole 40 mg tablet,delayed release 40 mg PO DAILY 10/14/24 potassium chloride 20 mEq tablet,extended release(part/cryst) (Klor-Con M) 20 meq PO DAILY 10/14/24 furosemide 20 mg tablet 10 mg (1/2 x 20 mg) PO DAILY PRN edema #30 tabs 11/23/24 lacosamide 100 mg tablet (Vimpat) 100 mg PO BID #180 tabs 12/20/24 cyanocobalamin (vitamin B-12) 1,000 mcg/mL injection solution 1,000 mcg IM QMONTH #10 mL 01/24/25 denosumab 60 mg/mL subcutaneous syringe (Prolia) 60 mg subcut [id number] #1 mL 01/24/25 gabapentin 100 mg capsule 300 mg PO QHS restless leg(s) 02/03/25 donepezil 10 mg tablet 10 mg PO DAILY 02/06/25 ergocalciferol (vitamin D2) 1,250 mcg (50,000 unit) capsule (Vitamin D2) 1,250 mcg PO Q7D #7 caps 02/08/25 hydromorphone 2 mg tablet (Dilaudid) 2 mg PO Q6H PRN pain 3 days #12 tabs 02/08/25 lidocaine 5 % topical patch 1 patch topical DAILY #15 ea 02/08/25 02/08/25 1204 <Electronically signed by Jessi Haro> Date _ Jessi Luna Signature (if applicable): Date CC: ~ Signed [facility] Work Phone: [phone] 272-533606-24-2025 Discharge summary Author Vincent Camp [facility] Note Date/Time February 08, 2025 11:5 8am [facility] Medical Records Department [address] [place] [address] Discharge Summary 02/08/25 1156 MR#: [id number] Acct: [id number] Name: LAUREN ALCARAZ Rep #: [id number] : 1940 84 From: Vincent Camp DO PCP: Dr. Chema Perry MD Status:ADM COMFORT Location: [place] [address] Providers Date of Admission: 02/06/25 Primary Care Physician: Dr. Chema Perry MD Consultations 02/06/25 15:35 Consult: Orthopedics Routine Consulting Provider: Damien Burleson Reason for Consult: right clavicular fracture. EMERGENT Consult: No MD Notified: Yes Date Notified: 02/06/25 Time Notified: 15:36 Method of Notification: ED Physician Initiated Reason For Visit: RIGHT CLAVICLE FRACTURE Diagnosis Discharge Diagnosis (1) Closed fracture of right clavicle: Status: Acute Code(s): S42.001A - Fracture of unspecified part of right clavicle, initial encounter forclosed fracture Plan: Subsequent visit Pain control. Will try to utilize nonnarcotics as much as possible. Unfortunately unable to use NSAIDs as patient is already on apixaban and aspirin. Scheduled acetaminophen, Lidoderm patch. As needed hydromorphone oral. Ice as needed. Seen by Dr. Burleson of orthopedics and recommendations at this point time is nonoperative care. He will revisit to discuss potential other options at a later point. 25-hydroxy vitamin D level 24.5. Start ergocalciferol. Patient has a previously scheduled appointment with [facility] on 02/09. Plan Chronic conditions * DVT: Continue with apixaban * CAD: Continue with aspirin, atorvastatin * Hypothyroidism: Continue levothyroxine * Glaucoma: Continue latanoprost VTE prophylaxis: Not indicated as patient is already anticoagulated. CODE STATUS: Addressed with the patient. Patient wishes to be full code. Medications at Discharge Home Medications L.acidophil-L.casei-B.bifid-B.longum-FOS 2 billion cell-50 mg capsule (ProbioticBlend) 1 cap PO DAILY Supplement 09/02/21 aspirin 81 mg tablet,delayed release (Adult Aspirin Regimen) 81 mg PO DAILY 01/10/22 d-mannose 500 mg capsule 500 mg PO DAILY 06/07/22 famotidine 10 mg tablet 10 mg PO BID 06/07/22 multivitamin 1 tab PO DAILY 06/07/22 mirabegron 50 mg tablet,extended release 24 hr (Myrbetriq) 50 mg PO QHS Check with primary doctor 01/29/23 albuterol sulfate 2.5 mg/3 mL (0.083 %) solution for nebulization 2.5 mg (3 mL) inhalation Q6H PRN Sob &/Or Wheezing #180 mL 04/07/23 syringes BD ECLIPSE 04/11/23 latanoprost 0.005 % eye drops (Xalatan) 1 drp ophthalmic (eye) DAILY 08/13/23 nitroglycerin 0.4 mg sublingual tablet 0.4 mg sublingual Q5-15M PRN chest pain #25 tabs 11/12/23 BD Sry/needle eclips See Rx Instructions IM .COMPLEX #12 ea 02/23/24 azelastine 137 mcg (0.1 %) nasal spray 2 spray intranasal BID 03/16/24 cetirizine 10 mg capsule (Zyrtec) 10 mg PO DAILY PRN allergy symptoms 03/16/24 fluticasone propionate 50 mcg/actuation nasal spray,suspension (Allergy Relief (fluticasone)) 1 spray intranasal DAILY 03/16/24 PEP device #1 ea 04/06/24 apixaban 5 mg tablet (Eliquis) 5 mg PO BID #180 tabs 06/08/24 atorvastatin 40 mg tablet See Rx Instructions .Route .COMPLEX #90 tabs 06/08/24 levothyroxine 50 mcg tablet 50 mcg PO DAILY Thyroid #90 tabs 06/08/24 memantine 10 mg tablet 10 mg PO BID Alzheimer's #180 tabs 06/08/24 pramipexole 0.5 mg tablet 0.5 mg PO BID #180 tabs 06/08/24 vortioxetine 20 mg tablet (Trintellix) 20 mg PO DAILY DEPRESSION #90 tabs 06/08/24 brimonidine 0.2 % eye drops 1 drp ophthalmic (eye) QHS 10/14/24 olopatadine 0.6 % nasal spray 2 spray intranasal DAILY 10/14/24 pantoprazole 40 mg tablet,delayed release 40 mg PO DAILY 10/14/24 potassium chloride 20 mEq tablet,extended release(part/cryst) (Klor-Con M) 20 meq PO DAILY 10/14/24 furosemide 20 mg tablet 10 mg (1/2 x 20 mg) PO DAILY PRN edema #30 tabs 11/23/24 lacosamide 100 mg tablet (Vimpat) 100 mg PO BID #180 tabs 12/20/24 cyanocobalamin (vitamin B-12) 1,000 mcg/mL injection solution 1,000 mcg IM QMONTH #10 mL 01/24/25 denosumab 60 mg/mL subcutaneous syringe (Prolia) 60 mg subcut [id number] #1 mL 01/24/25 gabapentin 100 mg capsule 300 mg PO QHS restless leg(s) 02/03/25 donepezil 10 mg tablet 10 mg PO DAILY 02/06/25 ergocalciferol (vitamin D2) 1,250 mcg (50,000 unit) capsule (Vitamin D2) 1,250 mcg PO Q7D #7 caps 02/08/25 hydromorphone 2 mg tablet (Dilaudid) 2 mg PO Q6H PRN pain 3 days #12 tabs 02/08/25 lidocaine 5 % topical patch 1 patch topical DAILY #15 ea 02/08/25 Hospital Course Operations None Procedures None Summary of Care Provided Minutes Spent on Discharge: 35 Hospital Course: Patient presents with debility. Previously had sustained a severely angulated right clavicular fracture after a fall. Patient was seen in the emergency room and sent home. Saw Dr. Quintanilla in the emergency room who referred her to [facility]. But she was just so debilitated so she presented to the emergency room. She was seen in consultation by Dr. Burleson who recommended conservative measures at this time. Patient still has an appointment scheduled for [facility]. Told her to consider following up to get a second opinion to see if this would be amenable to surgery or just continue with conservative measuresgiven its severe angulation. Weight / BMI Weight Weight: 49.8 kg Body Mass Index (BMI) 25.4 ABG / Lab / Microbiology Data 02/06/25 08:22 02/06/25 08:22 D/C Instructions Discharge Diet: No restrictions DC O2, CPAP, BIPAP Needs Home O2 Discharge instructions: Yes Type of respiratory needs?: Oxygen Oxygen frequency: Continuous Continuous oxygen liters per minute: 2 DC home with Oxygen: Yes Home O2 MD Review: I have reviewed the oxygen testing, and the patient qualifies for home oxygen equipment and portability. The patient is mobile in the home and the community. Meaningful Use Info Meaningful Use Meaningful Use Diagnoses (Choose all that apply): None applicable Ischemic Stroke Statin Dosing Therapy Reference: STATIN DOSE THERAPY REFERENCE: * Patients > 75 years receive moderate or high dose statin therapy. * Patients 75 years or YOUNGER should receive HIGH intensity statin dose unless contraindicated. You will be required to document reason for non-treatment if statin daily dose does not meet guidelines. HIGH DOSE STATIN THERAPY DAILY Atorvastatin > than or = to 40 mg Rosuvastatin > than or = to 20 mg Amlodipine + Atorvastatin > than or = to 2.5/40 mg Ezetimibe + Simvastatin 10/80 mg Simvastatin 80mg Discharge Plan Admission Admit Date/Time: 02/06/25 10:51 Primary Reason for Your Visit: Right clavicular fracture. Attending Provider: Vincent Camp Primary Care Provider: Chema Perry Consulting Providers: Damien Burleson Instructions Additional Instructions / Restrictions: Follow up with [facility] at previously scheduled appointment. If not, then follow up with Dr. Burleson in 1-2 weeks. Discharge Orders/Prescriptions Prescriptions: New ergocalciferol (vitamin D2) [Vitamin D2] 1,250 mcg (50,000 unit) Capsule 1,250 mcg PO Q7D Qty: 7 0RF lidocaine 5 % Adhesive Patch,Medicated 1 patch topical DAILY Qty: 15 0RF Protocol: *Topical Application Instructions APPLICATION INSTRUCTIONS: right shoulder, anterior. Continued Myrbetriq 50 mg tablet extended release 24 [...] do not exceed 3 doses per episode azelastine 137 mcg (0.1 %) spray,non-aerosol 2 [...] meq PO DAILY brimonidine 0.2 % drops 1 drp ophthalmic (eye) QHS olopatadine 0.6 % spray,non-aerosol 2 spray intranasal DAILY Patient Comments: [NO ORIGINAL SIG] Probiotic Blend 2 billion cell-50 mg Capsule 1 cap PO DAILY donepezil 10 mg tablet 10 mg PO DAILY hydromorphone [Dilaudid] 2 mg tablet 2 mg PO Q6H PRN (Reason: pain) 3 Days Qty: 12 0RF gabapentin 100 mg capsule 300 mg PO QHS (DME) syringes BD ECLIPSE See Rx Instructions .Route .MEDSUPPLY Rx Instructions: Bd SYR/leticia Eclipse 3ml #8699 BD Sry/needle eclips See Rx Instructions IM .COMPLEX Qty: 12 0RF Rx Instructions: intramuscularly; 3ml #0596 uses 1 a month (DME) PEP device [...] 0RF Rx Instructions: Can be administered at [facility] Prolia 60 mg/mL syringe 60 mg subcut [id number] Qty: 1 5RF Discontinued diazepam [Valium] 2 mg tablet 2 mg PO TID PRN (Reason: Muscle pain/spasm) 5 Days Qty: 15 0RF Referrals / Follow Up: Chema Perry MD [Primary Care Provider] - Within 2 Weeks Disposition Disposition (needs filled in before D/C Order can be placed): [facility] Facility Charges/Coding Visit Charges Inpatient E&M: 93697 Disch Hosp >30min 02/08/25 1158 <Electronically signed by Vincent Camp DO> Cosigner Signature (if applicable): CC: Dr. Vincent Camp DO; Dr. Chema Perry MD~ Signed [facility] Work Phone: [phone]) 142-884906-24-2025 Discharge summary Author Vincent Camp [facility] Note Date/Time February 08, 2025 11:5 6am [facility] Medical Records Department [address] [place] [address] Transfer to Extended Care MR#: [id number] Acct: [id number] Name: LAUREN ALCARAZ Rep #: [id number] : 1940 84 From: Vincent Camp DO PCP: Dr. Chema Perry MD Status:ADM COMFORT Certification of patient admission REQUIRED AT TIME OF ADMISSION. I CERTIFY THAT POST-HOSPITAL ECF SERVICES ARE REQUIRED TO BE GIVEN ON AN IN-PATIENT BASIS BECAUSE OF THE ABOVE NAMED PATIENT'S NEED FOR PRISON CARE ON A CONTINUING BASIS FOR THE CONDITION(S) FOR WHICH HE/SHE WAS RECEIVING IN-PATIENT HOSPITAL SERVICES PRIOR TO HIS/HER TRANSFER TO [facility]. 02/08/25 1156<Electronically signed by Vincent Camp DO> Diet Diet Order/Speech Therapy: INPATIENT Hospital Diet / Speech Therapy Order(s) 02/06/25 11:22 Diet: Regular - General Food consistency:: Regular Liquid Consistency:: Regular/Thin Routine Orders/Code Status Code Status: Full Code DC O2, CPAP, BIPAP needs Home O2 Discharge instructions: Yes Type of respiratory needs?: Oxygen Oxygen frequency: Continuous Continuous oxygen liters per minute: 2 Wound(s) back: Wound Type: Abrasion Therapies Weight Bearing: Non weight bearing Extremity Affected:: Right Upper Physical Therapy: Eval and Treat Occupational Therapy: Eval and Treat Problem/Diagnosis (1) Closed fracture of right clavicle: Status: Acute Code(s): S42.001A - Fracture of unspecified part of right clavicle, initial encounter forclosed fracture Plan: Subsequent visit Pain control. Will try to utilize nonnarcotics as much as possible. Unfortunately unable to use NSAIDs as patient is already on apixaban and aspirin. Scheduled acetaminophen, Lidoderm patch. As needed hydromorphone oral. Ice as needed. Seen by Dr. Burleson of orthopedics and recommendations at this point time is nonoperative care. He will revisit to discuss potential other options at a later point. 25-hydroxy vitamin D level 24.5. Start ergocalciferol. Patient has a previously scheduled appointment with [facility] on 02/09. Plan Chronic conditions * DVT: Continue with apixaban * CAD: Continue with aspirin, atorvastatin * Hypothyroidism: Continue levothyroxine * Glaucoma: Continue latanoprost VTE prophylaxis: Not indicated as patient is already anticoagulated. CODE STATUS: Addressed with the patient. Patient wishes to be full code. Allergies/Procedures Done in Hospital Allergies doxycycline Allergy (Mild, Verified 02/06/25 07:30) Vomiting acetaminophen (From Darvocet-N) Allergy (Verified 02/06/25 07:30) Other lamotrigine (From Lamictal) Allergy (Verified 02/06/25 07:30) Lip Swelling moxifloxacin HCl (From Avelox) Allergy (Verified 02/06/25 07:30) Other propoxyphene napsylate (From Darvocet-N) Allergy (Verified 02/06/25 07:30) Other hydrocodone Adverse Reaction (Severe, Verified 02/06/25 07:30) Confusion Nightmares, Suicidal Ideation oxycodone (From Percocet) Adverse Reaction (Severe, Verified 02/06/25 07:30) Confusion Nightmares, Suicidal Ideation zolpidem tartrate (From Ambien) Adverse Reaction (Verified 02/06/25 07:30) Other Type of Care/Length of Stay Estimated LOS: Convalescent Care Less Than 30 days Type of Care Needed: Skilled Rehab Potential: Fair Prognosis: Good Additional Orders/Day of Discharge Day of Discharge: 02/08/25 Dietary and Speech Recommendations Dietitian Recommendations/Changes: Continue regular diet until time of follow- upwhen RD can obtain more nutrition information. Discharge Plan Admission Admit Date/Time: 02/06/25 10:51 Primary Reason for Your Visit: Right clavicular fracture. Attending Provider: Vincent Camp Primary Care Provider: Chema Perry Consulting Providers: Damien Burleson Instructions Additional Instructions / Restrictions: Follow up with [facility] at previously scheduled appointment. If not, then follow up with Dr. Burleson in 1-2 weeks. Discharge Orders/Prescriptions Prescriptions: New ergocalciferol (vitamin D2) [Vitamin D2] 1,250 mcg (50,000 unit) Capsule 1,250 mcg PO Q7D Qty: 7 0RF lidocaine 5 % Adhesive Patch,Medicated 1 patch topical DAILY Qty: 15 0RF Protocol: *Topical Application Instructions APPLICATION INSTRUCTIONS: right shoulder, anterior. Continued Myrbetriq 50 mg tablet extended release 24 [...] do not exceed 3 doses per episode azelastine 137 mcg (0.1 %) spray,non-aerosol 2 [...] meq PO DAILY brimonidine 0.2 % drops 1 drp ophthalmic (eye) QHS olopatadine 0.6 % spray,non-aerosol 2 spray intranasal DAILY Patient Comments: [NO ORIGINAL SIG] Probiotic Blend 2 billion cell-50 mg Capsule 1 cap PO DAILY donepezil 10 mg tablet 10 mg PO DAILY hydromorphone [Dilaudid] 2 mg tablet 2 mg PO Q6H PRN (Reason: pain) 3 Days Qty: 12 0RF gabapentin 100 mg capsule 300 mg PO QHS (DME) syringes BD ECLIPSE See Rx Instructions .Route .MEDSUPPLY Rx Instructions: Bd SYR/leticia Eclipse 3ml #5788 BD Sry/needle eclips See Rx Instructions IM .COMPLEX Qty: 12 0RF Rx Instructions: intramuscularly; 3ml #9629 uses 1 a month (DME) PEP device [...] Rx Instructions: Can be administered at [facility] Prolia 60 mg/mL syringe 60 mg subcut [id number] Qty: 1 5RF Discontinued diazepam [Valium] 2 mg tablet 2 mg PO TID PRN (Reason: Muscle pain/spasm) 5 Days Qty: 15 0RF Referrals / Follow Up: Chema Perry MD [Primary Care Provider] - Within 2 Weeks Disposition Disposition (needs filled in before D/C Order can be placed): [facility] Facility 02/08/25 1156 <Electronically signed by Vincent Camp DO> Cosigner Signature (if applicable): CC: Dr. Chema Perry MD; Dr. Damien Burleson MD ~ [facility] Work Phone: [phone]) 803-339106-24-2025 Consult note [facility] Medical Records Department [address] [place] [address] Counseling Note - Pharmacy 02/08/25 1203 MR#: [id number] Acct: [id number] Name: LAUREN ALCARAZ Rep #: [id number] : 1940 84 From: Jessi Haro PCP: Dr. Chema Perry MD Status:ADM COMFORT Y Location: [place] [address] Pharmacy PR Med Reconciliation Pharmacy Service has performed discharge medication reconciliation for this patient. The patient's discharge medication list was reviewed for discrepancies and discrepancies were resolved. Medications at Discharge Home Medications L.acidophil-L.casei-B.bifid-B.longum-FOS 2 billion cell-50 mg capsule (ProbioticBlend) 1 cap PO DAILY Supplement 09/02/21 aspirin 81 mg tablet,delayed release (Adult Aspirin Regimen) 81 mg PO DAILY 01/10/22 d-mannose 500 mg capsule 500 mg PO DAILY 06/07/22 famotidine 10 mg tablet 10 mg PO BID 06/07/22 multivitamin 1 tab PO DAILY 06/07/22 mirabegron 50 mg tablet,extended release 24 hr (Myrbetriq) 50 mg PO QHS Check with primary doctor 01/29/23 albuterol sulfate 2.5 mg/3 mL (0.083 %) solution for nebulization 2.5 mg (3 mL) inhalation Q6H PRN Sob &/Or Wheezing #180 mL 04/07/23 syringes BD ECLIPSE 04/11/23 latanoprost 0.005 % eye drops (Xalatan) 1 drp ophthalmic (eye) DAILY 08/13/23 nitroglycerin 0.4 mg sublingual tablet 0.4 mg sublingual Q5-15M PRN chest pain #25 tabs 11/12/23 BD Sry/needle eclips See Rx Instructions IM .COMPLEX #12 ea 02/23/24 azelastine 137 mcg (0.1 %) nasal spray 2 spray intranasal BID 03/16/24 cetirizine 10 mg capsule (Zyrtec) 10 mg PO DAILY PRN allergy symptoms 03/16/24 fluticasone propionate 50 mcg/actuation nasal spray,suspension (Allergy Relief (fluticasone)) 1 spray intranasal DAILY 03/16/24 PEP device #1 ea 04/06/24 apixaban 5 mg tablet (Eliquis) 5 mg PO BID #180 tabs 06/08/24 atorvastatin 40 mg tablet See Rx Instructions .Route .COMPLEX #90 tabs 06/08/24 levothyroxine 50 mcg tablet 50 mcg PO DAILY Thyroid #90 tabs 06/08/24 memantine 10 mg tablet 10 mg PO BID Alzheimer's #180 tabs 06/08/24 pramipexole 0.5 mg tablet 0.5 mg PO BID #180 tabs 06/08/24 vortioxetine 20 mg tablet (Trintellix) 20 mg PO DAILY DEPRESSION #90 tabs 06/08/24 brimonidine 0.2 % eye drops 1 drp ophthalmic (eye) QHS 10/14/24 olopatadine 0.6 % nasal spray 2 spray intranasal DAILY 10/14/24 pantoprazole 40 mg tablet,delayed release 40 mg PO DAILY 10/14/24 potassium chloride 20 mEq tablet,extended release(part/cryst) (Klor-Con M) 20 meq PO DAILY 10/14/24 furosemide 20 mg tablet 10 mg (1/2 x 20 mg) PO DAILY PRN edema #30 tabs 11/23/24 lacosamide 100 mg tablet (Vimpat) 100 mg PO BID #180 tabs 12/20/24 cyanocobalamin (vitamin B-12) 1,000 mcg/mL injection solution 1,000 mcg IM QMONTH #10 mL 01/24/25 denosumab 60 mg/mL subcutaneous syringe (Prolia) 60 mg subcut [id number] #1 mL 01/24/25 gabapentin 100 mg capsule 300 mg PO QHS restless leg(s) 02/03/25 donepezil 10 mg tablet 10 mg PO DAILY 02/06/25 ergocalciferol (vitamin D2) 1,250 mcg (50,000 unit) capsule (Vitamin D2) 1,250 mcg PO Q7D #7 caps 02/08/25 hydromorphone 2 mg tablet (Dilaudid) 2 mg PO Q6H PRN pain 3 days #12 tabs 02/08/25 lidocaine 5 % topical patch 1 patch topical DAILY #15 ea 02/08/25 02/08/25 1204 Date _ Jessi Luna Signature (if applicable): Date CC: ~ Signed [facility]06-24-2025 Discharge summary [facility] Medical Records Department [address] [place] [address] Discharge Summary 02/08/25 1156 MR#: [id number] Acct: [id number] Name: LAUREN ALCARAZ Rep #: [id number] : 1940 84 From: Vincent Camp DO PCP: Dr. Chema Perry MD Status:ADM COMFORT Location: [id number] Providers Date of Admission: 02/06/25 Primary Care Physician: Dr. Chema Perry MD Consultations 02/06/25 15:35 Consult: Orthopedics Routine Consulting Provider: Damien Burleson Reason for Consult: right clavicular fracture. EMERGENT Consult: No MD Notified: Yes Date Notified: 02/06/25 Time Notified: 15:36 Method of Notification: ED Physician Initiated Reason For Visit: RIGHT CLAVICLE FRACTURE Diagnosis Discharge Diagnosis (1) Closed fracture of right clavicle: Status: Acute Code(s): S42.001A - Fracture of unspecified part of right clavicle, initial encounter forclosed fracture Plan: Subsequent visit Pain control. Will try to utilize nonnarcotics as much as possible. Unfortunately unable to use NSAIDs as patient is already on apixaban and aspirin. Scheduled acetaminophen, Lidoderm patch. As needed hydromorphone oral. Ice as needed. Seen by Dr. Burleson of orthopedics and recommendations at this point time is nonoperative care. Hewill revisit to discuss potential other options at a later point. 25-hydroxy vitamin D level 24.5. Start ergocalciferol. Patient has a previously scheduled appointment with [facility] on 02/09. Plan Chronic conditions * DVT: Continue with apixaban * CAD: Continue with aspirin, atorvastatin * Hypothyroidism: Continue levothyroxine * Glaucoma: Continue latanoprost VTE prophylaxis: Not indicated as patient is already anticoagulated. CODE STATUS: Addressed with the patient. Patient wishes to be full code. Medications at Discharge Home Medications L.acidophil-L.casei-B.bifid-B.longum-FOS 2 billion cell-50 mg capsule (ProbioticBlend) 1 cap PO DAILY Supplement 09/02/21 aspirin 81 mg tablet,delayed release (Adult Aspirin Regimen) 81 mg PO DAILY 01/10/22 d-mannose 500 mg capsule 500 mg PO DAILY 06/07/22 famotidine 10 mg tablet 10 mg PO BID 06/07/22 multivitamin 1 tab PO DAILY 06/07/22 mirabegron 50 mg tablet,extended release 24 hr (Myrbetriq) 50 mg PO QHS Check with primary doctor 01/29/23 albuterol sulfate 2.5 mg/3 mL (0.083 %) solution for nebulization 2.5 mg (3 mL) inhalation Q6H PRN Sob &/Or Wheezing #180 mL 04/07/23 syringes BD ECLIPSE 04/11/23 latanoprost 0.005 % eye drops (Xalatan) 1 drp ophthalmic (eye) DAILY 08/13/23 nitroglycerin 0.4 mg sublingual tablet 0.4 mg sublingual Q5-15M PRN chest pain #25 tabs 11/12/23 BD Sry/needle eclips See Rx Instructions IM .COMPLEX #12 ea 02/23/24 azelastine 137 mcg (0.1 %) nasal spray 2 spray intranasal BID 03/16/24 cetirizine 10 mg capsule (Zyrtec) 10 mg PO DAILY PRN allergy symptoms 03/16/24 fluticasone propionate 50 mcg/actuation nasal spray,suspension (Allergy Relief (fluticasone)) 1 spray intranasal DAILY 03/16/24 PEP device #1 ea 04/06/24 apixaban 5 mg tablet (Eliquis) 5 mg PO BID #180 tabs 06/08/24 atorvastatin 40 mg tablet See Rx Instructions .Route .COMPLEX #90 tabs 06/08/24 levothyroxine 50 mcg tablet 50 mcg PO DAILY Thyroid #90 tabs 06/08/24 memantine 10 mg tablet 10 mg PO BID Alzheimer's #180 tabs 06/08/24 pramipexole 0.5 mg tablet 0.5 mg PO BID #180 tabs 06/08/24 vortioxetine 20 mg tablet (Trintellix) 20 mg PO DAILY DEPRESSION #90 tabs 06/08/24 brimonidine 0.2 % eye drops 1 drp ophthalmic (eye) QHS 10/14/24 olopatadine 0.6 % nasal spray 2 spray intranasal DAILY 10/14/24 pantoprazole 40 mg tablet,delayed release 40 mg PO DAILY 10/14/24 potassium chloride 20 mEq tablet,extended release(part/cryst) (Klor-Con M) 20 meq PO DAILY 10/14/24 furosemide 20 mg tablet 10 mg (1/2 x 20 mg) PO DAILY PRN edema #30 tabs 11/23/24 lacosamide 100 mg tablet (Vimpat) 100 mg PO BID #180 tabs 12/20/24 cyanocobalamin (vitamin B-12) 1,000 mcg/mL injection solution 1,000 mcg IM QMONTH #10 mL 01/24/25 denosumab 60 mg/mL subcutaneous syringe (Prolia) 60 mg subcut [id number] #1 mL 01/24/25 gabapentin 100 mg capsule 300 mg PO QHS restless leg(s) 02/03/25 donepezil 10 mg tablet 10 mg PO DAILY 02/06/25 ergocalciferol (vitamin D2) 1,250 mcg (50,000 unit) capsule (Vitamin D2) 1,250 mcg PO Q7D #7 caps 02/08/25 hydromorphone 2 mg tablet (Dilaudid) 2 mg PO Q6H PRN pain 3 days #12 tabs 02/08/25 lidocaine 5 % topical patch 1 patch topical DAILY #15 ea 02/08/25 Hospital Course Operations None Procedures None Summary of Care Provided Minutes Spent on Discharge: 35 Hospital Course: Patient presents with debility. Previously had sustained a severely angulated right clavicular fracture after a fall. Patient was seen in the emergency room and sent home. Saw Dr. Quintanilla in the emergency room who referred her to [facility]. But she was just so debilitated so she presented to the emergency room. She was seen in consultation by Dr. Burleson who recommended conservative measures at this time. Patient still has an appointment scheduled for [facility]. Told her to consider following up to get a second opinion to see if this would be amenable to surgery or just continue with conservative measuresgiven its severe angulation. Weight / BMI Weight Weight: 49.8 kg Body Mass Index (BMI) 25.4 ABG / Lab / Microbiology Data 02/06/25 08:22 02/06/25 08:22 D/C Instructions Discharge Diet: No restrictions DC O2, CPAP, BIPAP Needs Home O2 Discharge instructions: Yes Type of respiratory needs?: Oxygen Oxygen frequency: ContinuousContinuous oxygen liters per minute: 2 DC home with Oxygen: Yes Home O2 MD Review: I have reviewed the oxygen testing, and the patient qualifies for home oxygen equipment and portability. The patient is mobile in the home and the community. Meaningful Use Info Meaningful Use Meaningful Use Diagnoses (Choose all that apply): None applicable Ischemic Stroke Statin Dosing Therapy Reference: STATIN DOSE THERAPY REFERENCE: * Patients > 75 years receive moderate or high dose statin therapy. * Patients 75 years or YOUNGER should receive HIGH intensity statin dose unless contraindicated. You will be required to document reason for non-treatment if statin daily dose does not meet guidelines. HIGH DOSE STATIN THERAPY DAILY Atorvastatin > than or = to 40 mg Rosuvastatin > than or = to 20 mg Amlodipine + Atorvastatin > than or = to 2.5/40 mg Ezetimibe + Simvastatin 10/80 mg Simvastatin 80mg Discharge Plan Admission Admit Date/Time: 02/06/25 10:51 Primary Reason for Your Visit: Right clavicular fracture. Attending Provider: Vincent Camp Primary Care Provider: Chema Perry Consulting Providers: Damien Burleson Instructions Additional Instructions / Restrictions: Follow up with [facility] at previously scheduled appointment. If not, then follow up with Dr. Burleson in 1-2 weeks. Discharge Orders/Prescriptions Prescriptions: New ergocalciferol (vitamin D2) [Vitamin D2] 1,250 mcg (50,000 unit) Capsule 1,250 mcg PO Q7D Qty: 7 0RF lidocaine 5 % Adhesive Patch,Medicated 1 patch topical DAILY Qty: 15 0RF Protocol: *Topical Application Instructions APPLICATION INSTRUCTIONS: right shoulder, anterior. Continued Myrbetriq 50 mg tablet extended release 24 [...] do not exceed 3 doses per episode azelastine 137 mcg (0.1 %) spray,non-aerosol 2 [...] meq PO DAILY brimonidine 0.2 % drops 1 drp ophthalmic (eye) QHS olopatadine 0.6 % spray,non-aerosol 2 spray intranasal DAILY Patient Comments: [NO ORIGINAL SIG] Probiotic Blend 2 billion cell-50 mg Capsule 1 cap PO DAILY donepezil 10 mg tablet 10 mg PO DAILY hydromorphone [Dilaudid] 2 mg tablet 2 mg PO Q6H PRN (Reason: pain) 3 Days Qty: 12 0RF gabapentin 100 mg capsule 300 mg PO QHS (DME) syringes BD ECLIPSE See Rx Instructions .Route .MEDSUPPLY Rx Instructions: Bd SYR/leticia Eclipse 3ml #5782 BD Sry/needle eclips See Rx Instructions IM .COMPLEX Qty: 12 0RF Rx Instructions: intramuscularly; 3ml #3949 uses 1 a month (DME) PEP device [...] 0RF Rx Instructions: Can be administered at [facility] Prolia 60 mg/mL syringe 60 mg subcut [id number] Qty: 1 5RF Discontinued diazepam [Valium] 2 mg tablet 2 mg PO TID PRN (Reason: Muscle pain/spasm) 5 Days Qty: 15 0RF Referrals / Follow Up: Chema Perry MD [Primary Care Provider] - Within 2 Weeks Disposition Disposition (needs filled in before D/C Order can be placed): [facility] Facility Charges/Coding Visit Charges Inpatient E&M: 34060 Disch Hosp >30min 06/24/25 1158 Cosigner Signature (if applicable): CC: Dr. Vincent Camp DO; Dr. Chema Perry MD~ Signed [facility]06-24-2025 Discharge summary [facility] Medical Records Department [address] [place] [address] [facility] Care MR#: [id number] Acct: [id number] Name: LAUREN ALCARAZ Rep #: [id number] : 1940 84 From: Vincent Camp DO PCP: Dr. Chema Perry MD Status:ADM COMFORT Certification of patient admission REQUIRED AT TIME OF ADMISSION. I CERTIFY THAT POST-HOSPITAL ECF SERVICES ARE REQUIRED TO BE GIVEN ON AN IN-PATIENT BASIS BECAUSE OF THE ABOVE NAMED PATIENT'S NEED FOR PRISON CARE ON A CONTINUING BASIS FOR THE CONDITION(S) FOR WHICH HE/SHE WAS RECEIVING IN-PATIENT HOSPITAL SERVICES PRIOR TO HIS/HER TRANSFER TO THE F. 02/08/25 1156 Diet Diet Order/Speech Therapy: INPATIENT Hospital Diet / Speech Therapy Order(s) 02/06/25 11:22 Diet: Regular - General Food consistency:: Regular Liquid Consistency:: Regular/Thin Routine Orders/Code Status Code Status: Full Code DC O2, CPAP, BIPAP needs Home O2 Discharge instructions: Yes Type of respiratory needs?: Oxygen Oxygen frequency: ContinuousContinuous oxygen liters per minute: 2 Wound(s) back: Wound Type: Abrasion Therapies Weight Bearing: Non weight bearing Extremity Affected:: Right Upper Physical Therapy: Eval and Treat Occupational Therapy: Eval and Treat Problem/Diagnosis (1) Closed fracture of right clavicle: Status: Acute Code(s): S42.001A - Fracture of unspecified part of right clavicle, initial encounter forclosed fracture Plan: Subsequent visit Pain control. Will try to utilize nonnarcotics as much as possible. Unfortunately unable to use NSAIDs as patient is already on apixaban and aspirin. Scheduled acetaminophen, Lidoderm patch. As needed hydromorphone oral. Ice as needed. Seen by Dr. Burleson of orthopedics and recommendations at this point time is nonoperative care. Artll revisit to discuss potential other options at a later point. 25-hydroxy vitamin D level 24.5. Start ergocalciferol. Patient has a previously scheduled appointment with [facility] on 02/09. Plan Chronic conditions * DVT: Continue with apixaban * CAD: Continue with aspirin, atorvastatin * Hypothyroidism: Continue levothyroxine * Glaucoma: Continue latanoprost VTE prophylaxis: Not indicated as patient is already anticoagulated. CODE STATUS: Addressed with the patient. Patient wishes to be full code. Allergies/Procedures Done in Hospital Allergies doxycycline Allergy (Mild, Verified 02/06/25 07:30) Vomiting acetaminophen (From Darvocet-N) Allergy (Verified 02/06/25 07:30) Other lamotrigine (From Lamictal) Allergy (Verified 02/06/25 07:30) Lip Swelling moxifloxacin HCl (From Avelox) Allergy (Verified 02/06/25 07:30) Other propoxyphene napsylate (From Darvocet-N) Allergy (Verified 02/06/25 07:30) Other hydrocodone Adverse Reaction (Severe, Verified 02/06/25 07:30) Confusion Nightmares, Suicidal Ideation oxycodone (From Percocet) Adverse Reaction (Severe, Verified 02/06/25 07:30) Confusion Nightmares, Suicidal Ideation zolpidem tartrate (From Ambien) Adverse Reaction (Verified 02/06/25 07:30) Other Type of Care/Length of Stay Estimated LOS: Convalescent Care Less Than 30 days Type of Care Needed: Skilled Rehab Potential: Fair Prognosis: Good Additional Orders/Day of Discharge Day of Discharge: 02/08/25 Dietary and Speech Recommendations Dietitian Recommendations/Changes: Continue regular diet until time of follow- upwhen RD can obtain more nutrition information. Discharge Plan Admission Admit Date/Time: 02/06/25 10:51 Primary Reason for Your Visit: Right clavicular fracture. Attending Provider: Vincent Camp Primary Care Provider: Chema Perry Consulting Providers: Damien Burleson Instructions Additional Instructions / Restrictions: Follow up with [facility] at previously scheduled appointment. If not, then follow up with Dr. Burleson in 1-2 weeks. Discharge Orders/Prescriptions Prescriptions: New ergocalciferol (vitamin D2) [Vitamin D2] 1,250 mcg (50,000 unit) Capsule 1,250 mcg PO Q7D Qty: 7 0RF lidocaine 5 % Adhesive Patch,Medicated 1 patch topical DAILY Qty: 15 0RF Protocol: *Topical Application Instructions APPLICATION INSTRUCTIONS: right shoulder, anterior. Continued Myrbetriq 50 mg tablet extended release 24 [...] do not exceed 3 doses per episode azelastine 137 mcg (0.1 %) spray,non-aerosol 2 [...] meq PO DAILY brimonidine 0.2 % drops 1 drp ophthalmic (eye) QHS olopatadine 0.6 % spray,non-aerosol 2 spray intranasal DAILY Patient Comments: [NO ORIGINAL SIG] Probiotic Blend 2 billion cell-50 mg Capsule 1 cap PO DAILY donepezil 10 mg tablet 10 mg PO DAILY hydromorphone [Dilaudid] 2 mg tablet 2 mg PO Q6H PRN (Reason: pain) 3 Days Qty: 12 0RF gabapentin 100 mg capsule 300 mg PO QHS (DME) syringes BD ECLIPSE See Rx Instructions .Route .MEDSUPPLY Rx Instructions: Bd SYR/leticia Eclipse 3ml #8295 BD Sry/needle eclips See Rx Instructions IM .COMPLEX Qty: 12 0RF Rx Instructions: intramuscularly; 3ml #1348 uses 1 a month (DME) PEP device [...] 0RF Rx Instructions: Can be administered at [facility] Prolia 60 mg/mL syringe 60 mg subcut [id number] Qty: 1 5RF Discontinued diazepam [Valium] 2 mg tablet 2 mg PO TID PRN (Reason: Muscle pain/spasm) 5 Days Qty: 15 0RF Referrals / Follow Up: Chema Perry MD [Primary Care Provider] - Within 2 Weeks Disposition Disposition (needs filled in before D/C Order can be placed): [facility] 02/08/25 1156 Cosigner Signature (if applicable): CC: Dr. Chema Perry MD; Dr. Damien Burleson MD ~ [facility]06-24-2025 [facility]06-23-2025 Progress note Author Damien Burleson [facility] Note Date/Time February 07, 2025 4:09 pm [facility] Medical Records Department [address] [place] [address] Progress Note - Orthopedic 02/07/25 1605 MR#: [id number] Acct: [id number] Name: LAUREN ALCARAZ Rep #: [id number] : 1940 84 From: Damien Burleson MD PCP: Dr. Chema Perry MD Status:ADM COMFORT Location: MS3 [id number] Subjective Subjective Difficult for the patient to express herself. Follows directions. Here for pain control, distal clavicle fracture R side with superior displacement. Objective Data Objective Data Vital Signs: Vital Signs Temp Pulse Resp BP Pulse Ox O2 Del Method O2 Flow Rate 98 F 72 16 119/67 96 Nasal Cannula 2 02/07/25 15:53 02/07/25 15:53 02/07/25 15:53 02/07/25 15:53 02/07/25 15:53 02/07/25 15:53 02/07/25 15:53 Oxygen Flow Rate (L/min) 2 Oxygen Delivery Method Nasal Cannula Weight: 109 lb 12.643 oz Body Mass Index (BMI) 25.4 Intake & Output: Intake and Output for Last 24 Hours 02/05/25 02/06/25 02/07/25 23:59 23:59 23:59 Intake Total 700 / 700 200 / 200 Balance 700 / 700 200 / 200 Lab / Micro Data 02/06/25 08:22 02/06/25 08:22 Labs: Laboratory Results - last 24 hr 02/06/25 08:22: Vitamin D 25-Hydroxy 24.5 L Physical Exam Const alert and no apparent distress; Negative for oriented x3 General Appearance: cooperative Extremity Extremity Narrative: R shoulder closed, no threatening of skin but prominence of the distal clavicle is noted. There does not appear to be excessive pain to palpate this. It is unstable superiorly. The skin is not threatening or tented. It moves easily over the fracture. The upper extremity is closed neurovascularly intact normal sensation in the hand able to wiggle the fingers strong radial pulse no pain with elbow range of motion mild pain with shoulder range of motion testing. Patient appears very thin overall with thoracic kyphosis and very frail appearing. Assessment & Plan Assessment/Plan (1) Closed fracture of right clavicle: PLAN: 84-year-old low functional demand female with R side an unstable distal clavicle fracture. My opinion is not changed in terms of my recommendation hereoverall for conservative management sling range of motion and weightbearing and activities as tolerated right upper extremity. If considering surgery this would be in the form of a hook plate with CC ligament reconstruction (or clavicle plate with distal extension - both have high risk of failure and complications) that is still a very large surgery for this 84-year-old female and weighing the pros and cons, my recommendation here is non-surgical. Happy to follow the patient up as an outpatient but will not follow while in hospital. 02/07/25 1609 <Electronically signed by Damien Burlseon MD> Cosigner Signature (if applicable): CC: ~ Signed [facility] Work Phone: 1(194) 242-673606-23-2025 Progress note [facility] Medical Records Department [address] [place] [address] Progress Note - Orthopedic 02/07/25 1605 MR#: [id number] Acct: [id number] Name: LAUREN ALCARAZ Rep #: [id number] : 1940 84 From: Damien Burleson MD PCP: Dr. Chema Perry MD Status:ADM COMFORT Location: [place] [address] Subjective Subjective Difficult for the patient to express herself. Follows directions. Here for pain control, distal clavicle fracture R side with superior displacement. Objective Data Objective Data Vital Signs: Vital Signs Temp Pulse Resp BP Pulse Ox O2 Del Method O2 Flow Rate 98 F 72 16 119/67 96 Nasal Cannula 2 02/07/25 15:53 02/07/25 15:53 02/07/25 15:53 02/07/25 15:53 02/07/25 15:53 02/07/25 15:53 02/07/25 15:53 Oxygen Flow Rate (L/min) 2 Oxygen Delivery Method Nasal Cannula Weight: 109 lb 12.643 oz Body Mass Index (BMI) 25.4 Intake & Output: Intake and Output for Last 24 Hours 02/05/25 02/06/25 02/07/25 23:59 23:59 23:59 Intake Total 700 / 700 200 / 200 Balance 700 / 700 200 / 200 Lab / Micro Data 02/06/25 08:22 02/06/25 08:22 Labs: Laboratory Results - last 24 hr 02/06/25 08:22: Vitamin D 25-Hydroxy 24.5 L Physical Exam Const alert and no apparent distress; Negative for oriented x3 General Appearance: cooperative Extremity Extremity Narrative: R shoulder closed, no threatening of skin but prominence of the distal clavicle is noted. There does not appear to be excessive pain to palpate this. It is unstable superiorly. The skin is not threatening or tented. It moves easily over the fracture. The upper extremity is closed neurovascularly intact normal sensation in the hand able to wiggle the fingers strong radial pulse no pain with elbow range of motion mild pain with shoulder range of motion testing. Patient appears very thin overall with thoracic kyphosis and very frail appearing. Assessment & Plan Assessment/Plan (1) Closed fracture of right clavicle: PLAN: 84-year-old low functional demand female with R side an unstable distal clavicle fracture. Myopinion is not changed in terms of my recommendation hereoverall for conservative management sling range of motion and weightbearing and activities as tolerated right upper extremity. If considering surgery this would be in the form of a hook plate with CC ligament reconstruction (or clavicle platewith distal extension - both have high risk of failure and complications) that is still a very large surgery for this 84-year-old female and weighing the pros and cons, my recommendation here is non-surgical. Happy to follow the patient up as an outpatient but will not follow while in hospital. 02/07/25 1609 Cosigner Signature (if applicable): CC: ~ Signed [facility]06-23-2025 Progress note Author Vincent Camp [facility] Note Date/Time February 07, 2025 11:2 3am [facility] Medical Records Department [address] [place] [address] Progress Note - Hospitalist 02/07/25 0739 MR#: [id number] Acct: [id number] Name: LAUREN ALCARAZ Rep #: [id number] : 1940 84 From: Vincent Camp DO PCP: Dr. Chema Perry MD Status:ADM COMFORT Location: [place] [address] Reason for Visit Reason for Visit: Diagnoses Other malaise (02/06/25) Fracture of unspecified part of right clavicle, initial encounter for closed fracture (02/06/25) Subjective Subjective Pain better. Objective Data Objective Data Vital Signs: Vital Signs Temp Pulse Resp BP Pulse Ox O2 Del Method O2 Flow Rate 36.9 C 76 16 127/55 H 95 Nasal Cannula 2 02/07/25 05:03 02/07/25 05:03 02/07/25 05:03 02/07/25 05:03 02/07/25 05:03 02/07/25 05:03 02/07/25 05:03 Oxygen Flow Rate (L/min) 2 Oxygen Delivery Method Nasal Cannula Weight: 49.8 kg Body Mass Index (BMI) 25.4 Intake & Output: Intake and Output for Last 24 Hours 02/05/25 02/06/25 02/07/25 23:59 23:59 23:59 Intake Total 700 / 700 200 / 200 Balance 700 / 700 200 / 200 Lab / Micro Data 02/06/25 08:22 02/06/25 [...] Albumin 3.3 L, Globulin 2.8, Albumin/Globulin Ratio 1.2, Vitamin D 25-Hydroxy 24.5 L Radiography Diagnostic Testing: Radiology Impression Clavicle X-Ray 02/06/25 07:53 IMPRESSION: No obvious change in the known acute, displaced right distal clavicular fracture. Reading Location: [facility] Humerus X-Ray 02/06/25 07:53 IMPRESSION: NO ACUTE FRACTURE OR DISLOCATION. Reading Location: [facility] Physical Exam Const alert and no apparent distress Constitutional Narrative: sleeping, easily awoke. HEENT head/scalp atraumatic and moist oral mucous membranes Resp normal respiratory effort and no retractions Extremity Extremity Narrative: tenting of skin overlying broken clavicle. Skin Skin Narrative: brusing right shoulder. Neuro Sensorium / Orientation: awake and alert Psych affect normal Assessment & Plan Assessment/Plan (1) Debility: PLAN: Patient with marginal performance status is that she is using a walker before this. Now more limited given the clavicular fracture. PT OT evaluate and treat. I do anticipate patient requiring additional needs such as with long term facility. (2) Closed fracture of right clavicle: PLAN: Subsequent visit Pain control. Will try to utilize nonnarcotics as much as possible. Unfortunately unable to use NSAIDs as patient is already on apixaban and aspirin. Scheduled acetaminophen, Lidoderm patch. As needed hydromorphone oral. Ice as needed. Seen by Dr. Burleson of orthopedics and recommendations at this point time is nonoperative care. He will revisit to discuss potential other options at a later point. 25-hydroxy vitamin D level 24.5. Start ergocalciferol PLAN: Plan Chronic conditions * DVT: Continue with apixaban * CAD: Continue with aspirin, atorvastatin * Hypothyroidism: Continue levothyroxine * Glaucoma: Continue latanoprost VTE prophylaxis: Not indicated as patient is already anticoagulated. CODE STATUS: Addressed with the patient. Patient wishes to be full code. Charges/Coding Visit Charges Inpatient E&M: 32774 Subs Hosp L2 02/07/25 1123 <Electronically signed by Vincent Camp DO> Cosigner Signature (if applicable): CC: ~ Signed [facility] Work Phone: 1(333) 996-926806-23-2025 Progress note [facility] Medical Records Department [address] [place] [address] Progress Note - Hospitalist 02/07/25 0739 MR#: [id number] Acct: [id number] Name: LAUREN ALCARAZ Rep #: [id number] : 1940 84 From: Vincent Camp DO PCP: Dr. Chema Perry MD Status:ADM COMFORT Location: [place] [id number] Reason for Visit Reason for Visit: Diagnoses Other malaise (02/06/25) Fracture of unspecified part of right clavicle, initial encounter for closed fracture (02/06/25) Subjective Subjective Pain better. Objective Data Objective Data Vital Signs: Vital Signs Temp Pulse Resp BP Pulse Ox O2 Del Method O2 Flow Rate 36.9 C 76 16 127/55 H 95 Nasal Cannula 2 02/07/25 05:03 02/07/25 05:03 02/07/25 05:03 02/07/25 05:03 02/07/25 05:03 02/07/25 05:03 02/07/25 05:03 Oxygen Flow Rate (L/min) 2 Oxygen Delivery Method Nasal Cannula Weight: 49.8 kg Body Mass Index (BMI) 25.4 Intake & Output: Intake and Output for Last 24 Hours 02/05/25 02/06/25 02/07/25 23:59 23:59 23:59 Intake Total 700 / 700 200 / 200 Balance 700 / 700 200 / 200 Lab / Micro Data 02/06/25 08:22 02/06/25 [...] Albumin 3.3 L, Globulin 2.8, Albumin/Globulin Ratio 1.2, Vitamin D 25-Hydroxy 24.5 L Radiography Diagnostic Testing: Radiology Impression Clavicle X-Ray 02/06/25 07:53 IMPRESSION: No obvious change in the known acute, displaced right distal clavicular fracture. Reading Location: [id number] Humerus X-Ray 02/06/25 07:53 IMPRESSION: NO ACUTE FRACTURE OR DISLOCATION. Reading Location: [facility] Physical Exam Const alert and no apparent distress Constitutional Narrative: sleeping, easily awoke. HEENT head/scalp atraumatic and moist oral mucous membranes Resp normal respiratory effort and no retractions Extremity Extremity Narrative: tenting of skin overlying broken clavicle. Skin Skin Narrative: brusing right shoulder. Neuro Sensorium / Orientation: awake and alert Psych affect normal Assessment & Plan Assessment/Plan (1) Debility: PLAN: Patient with marginal performance status is that she is using a walker before this. Now more limited given the clavicular fracture. PT OT evaluate and treat. I do anticipate patient requiring additional needs such as with long term facility. (2) Closed fracture of right clavicle: PLAN: Subsequent visit Pain control. Will try to utilize nonnarcotics as much as possible. Unfortunately unable to use NSAIDs as patient is already on apixaban and aspirin. Scheduled acetaminophen, Lidoderm patch. As needed hydromorphone oral. Ice as needed. Seen by Dr. Burleson of orthopedics and recommendations at this point time is nonoperative care. Ladariuswill revisit to discuss potential other options at a later point. 25-hydroxy vitamin D level 24.5. Start ergocalciferol PLAN: Plan Chronic conditions * DVT: Continue with apixaban * CAD: Continue with aspirin, atorvastatin * Hypothyroidism: Continue levothyroxine * Glaucoma: Continue latanoprost VTE prophylaxis: Not indicated as patient is already anticoagulated. CODE STATUS: Addressed with the patient. Patient wishes to be full code. Charges/Coding Visit Charges Inpatient E&M: 11484 Subs Hosp L2 02/07/25 1123 Cosigner Signature (if applicable): CC: ~ Signed [facility]06-22-2025 Discharge summary Author Kana Whitt [facility] Note Date/Time February 06, 2025 4:12 pm [facility] Medical Records Department [address] [place] [address] Emergency Department Summary 02/06/25 MR#: [id number] Acct: [id number] Name: LAUREN ALCARAZ Rep #: [id number] : 1940 84 From: Kana Staton PCP: Dr. Chema Perry MD Status:ADM COMFORT Location: MS3 [id number] HPI History of Present Illness Chief Complaint: Upper Extremity Injury [facility] Medical History Leg edema Open wound [...] coronary artery (~1989) 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 Essential hypertension [...] 1 cap PO MILTON Y Supplement 09/02/21 02/05/25 History 2 billion cell-50 mg capsule (Probiotic Blend) aspirin 81 mg tablet,delayed 81 mg PO DAILY 01/10/22 0 02/05/25 History release (Adult Aspirin Regimen) d-mannose 500 mg capsule 500 mg PO DAILY 06/07/22 History famotidine 10 mg tablet 10 mg PO BID 06/07/22 History multivitamin 1 tab PO DAILY 06/07/2201/17 History mirabegron 50 mg tablet,extended 50 mg PO QHS Check wi th primary 01/29/23 02/05/25 History release 24 hr (Myrbetriq) doctor albuterol sulfate 2.5 mg/3 mL 2.5 mg (3 mL) inhalation Q6H PRN 04/07/23 Unknown Rx (0.083 %) solution for nebulization Sob &/Or Wheezing #180 mL syringes BD ECLIPSE 04/11/23 Unknown History latanoprost 0.005 % eye drops 1 drp ophthalmic (eye) D AILY 08/13/23 02/05/25 History (Xalatan) nitroglycerin 0.4 mg sublingual 0.4 mg sublingual [...] fluticasone propionate 50 1 spray intranasal DAILY 02/05/25 History mcg/actuation nasal spray,suspension (Allergy Relief (fluticasone)) PEP device #1 ea 04/06/24 Unknown Rx apixaban 5 mg tablet (Eliquis) 5 mg PO BID #180 tabs 1 02/05/25 Rx atorvastatin 40 mg tablet See Rx Instructions .Route 1 02/05/25 Rx .COMPLEX #90 tabs levothyroxine 50 mcg tablet 50 mcg PO DAILY Thyroid #9 0 tabs 06/08/24 02/05/25 Rx memantine 10 mg tablet 10 mg PO BID Alzheimer's #18 0 tabs 06/08/24 02/05/25 Rx pramipexole 0.5 mg tablet 0.5 mg PO BID #180 tabs 05/1902/05/25 Rx vortioxetine 20 mg tablet 20 mg PO DAILY DEPRESSION #9 0 tabs 06/08/24 02/05/25 Rx (Trintellix) brimonidine 0.2 % eye drops 1 drp ophthalmic (eye) QHS 10/14/24 02/05/25 History olopatadine 0.6 % nasal spray 2 spray intranasal DAILY 10/14/24 Unknown History pantoprazole 40 mg tablet,delayed 40 mg PO DAILY 10/1402/05/25 History release potassium chloride 20 mEq 20 meq PO DAILY 10/14/24 History tablet,extended release(part/cryst) (Klor-Con M) furosemide 20 mg tablet 10 mg (1/2 x 20 mg) PO DAILY PRN 11/23/24 Unknown Rx edema #30 tabs lacosamide 100 mg tablet (Vimpat) 100 mg PO BID #180 t abs 12/20/24 02/05/25 Rx cyanocobalamin (vitamin B-12) 1,000 mcg IM QMONTH #10 mL 01/24/25 Unknown Rx 1,000 mcg/mL injection solution denosumab 60 mg/mL subcutaneous 60 mg subcut [id number] #1 mL 01/24/25 Unknown Rx syringe (Prolia) diazepam 2 mg tablet (Valium) 2 mg PO TID PRN Muscle p ain/spasm 02/03/25 02/05/25 Rx 5 days #15 tabs gabapentin 100 mg capsule 300 mg PO QHS restless leg(s ) 02/03/25 02/05/25 History hydromorphone 2 mg tablet 2 mg PO Q6H PRN pain 5 days #20 02/03/25 02/06/25 Rx (Dilaudid) tabs donepezil 10 mg tablet 10 mg PO DAILY 02/06/2501/17 History Allergy/AdvReac Type Severity Reaction Status Date / [...] Other Verified 02/06/25 07:30 Ambien) Family History Mother CVA (cerebral vascular [...] do you feel safe at home: Yes MDM MDM MDM Narrative Medical decision making narrative: HISTORY OF PRESENT ILLNESS: Chief complaint: Upper extremity injury 84-year-old female history as below presents with increased pain in right shoulder blade and collarbone. The history is provided by the patient and her . They states she did have some minor trauma to the right arm a day and a half ago. She did not fall however she did bump her arm against the wall. The also states the patient has been having trouble getting around secondary to pain and diffuse weakness. They state they follow-up with orthopedics on Friday. Notes they saw Dr. Quintanilla in his office. They stated he did not have any acute surgical intervention recommendations. They state he further recommended she follow-up with outside orthopedic group called [facility] in [place]. REVIEW OF SYSTEMS: Pertinent positives: Shoulder pain Pertinent negatives: GROSS, CP PHYSICAL EXAM: Nursing triage notes reviewed, Vital signs reviewed Constitutional: please see mdm HENT: MMM Eyes: Pupils equal round and reactive to light, Extraocular muscles intact Neck: No stridor, no JVD, full neck ROM Lungs: Clear to auscultation, No wheezing or rales. No increased work of breathing, no conversational dyspnea, no accessory muscle use, no nasal flaring. No respiratory distress noted Heart: Regular rate and rhythm, No murmurs, No rubs and No gallops, 2+ distal pulses (radial, femoral, posterior tibial) in all extremities Abdomen: Soft, there is no tenderness, rigidity, rebound or guarding, no obviousperitoneal signs, no palpable pulsatile abdominal masses, no auscultated abdominal bruit : No CVAT Extremities: Obvious deformity to right distal clavicle, TTP over clavicle and proximal humerus. Neuro: Intact 5/5 strength with ok sign (median), intact finger abduction (ulnar) intact wrist extension (radial n). Intact sensation in the radial, ulnar, and median nerve distributions. Skin: significant ecchymosis noted over right shoulder, right upper arm. No sign of open fracture MEDICAL DECISION MAKING: Chief Complaint: please see HPI External records reviewed: Reviewed prior imaging studies. Reviewed x-ray and CT scan of the clavicle/upper extremity from 02/03/2025. These images were notedto show significantly cranially displaced distal clavicle fracture. Orthopedic was consulted did not recommend emergent intervention. Patient was discharged on oral Dilaudid and Valium. Factors affecting care: CAD, osteoporosis, GERD, ND, PE (on Eliquis), hyperlipidemia, vascular dementia Social determinants of health: Elderly History obtained from others: none Consults: Orthopedic Surgery (Dr. Quintanilla) - reviewed the patients hx, PE, imaging. Recommended consulted Dr. Bustos as he is a shoulder specialist. Spoke with Dr. Burleson - recommended not operating, no a good surgical candidate but would see her here. MDM Narrative: The patient was initially hemodynamically stable, afebrile and nontoxic- appearing. Exam with after mentioned clavicle deformity and injury I considered the following differential diagnosis: Worsening fracture/dislocation of the right clavicle/right shoulder ALL IMAGES (IF OBTAINED) HAVE BEEN PERSONALLY REVIEWED AND INTERPRETED BY MYSELF. CBC shows no leukocytosis, shows Moderate anemia, no thrombocytopenia CMP without evidence of acute kidney injury, significant electrolyte abnormality, anion gap to suggest end organ hypo-perfusion, no evidence of metabolic acidosis with a normal bicarbonate, no evidence of hepatobiliary obstructive pathology. X-ray of the right clavicle, right humerus read reviewed personally myself. Shows a cranially displaced right clavicular fracture. Humerus x-ray was read by me showed no evidence of obvious fracture dislocation. Agrees to my interpretation. The patient and/or family, caregivers express understanding. The patient and/orfamily, caregivers agrees with the plan. Shared decision making: I will have a discussion with the patient and or visitors regarding risk/benefits of further testing or admission. They will be made aware of of the risk/benefits inherent in this decision they will be given the opportunity to voice understanding. Total critical care time today provided was at least 0 minutes. This excludes separately billable procedures. Critical care time (if documented) is secondary to the patient having high probability of clinically significant/life threatening deterioration in the patient's condition which required my urgent intervention. Impression: 1. Right clavicle fracture 2. Anemia 3. History of balance difficulties Dispo: [] This note was generated with [employer] dictation software. It may contain incorrect words, spelling, and punctuation that were not noted in review of the chart prior to signing. Discharge Plan Disposition Disposition: Acute Care Hospital [facility] Discharge Date/Time: 02/06/25 11:15 What to do if you have Problems For any increased pain, shortness of breath, bleeding, nausea or vomiting, chest pain, or any unexpected problems, contact your Primary Care Provider. Call [facility] ([phone]) or report to the closest Emergency Room. Call 911 if necessary. 02/06/25 1612 <Electronically signed by Kana Whitt DO> Cosigner Signature (if applicable): CC: Dr. Chema Perry MD ~ Signed [facility] Work Phone: 1(472) 353-662206-22-2025 History and physical note Author Vincent Camp [facility] Note Date/Time February 06, 2025 3:40 pm [facility] Medical Records Department [address] [place] [id number] H&P Exam - Hospitalist 02/06/25 1529 MR#: [id number] Acct: [id number] Name: LAUREN ALCARAZ Rep #: [id number] : 1940 84 From: Vincent Camp DO PCP: Dr. Chema Perry MD Status:ADM COMFORT [place] [facility] [id number] HPI - General General Date of Admission: 02/06/25 Date of Service: 02/06/25 Chief Complaint: uncontrolled pain. HPI Narrative LAUREN ALCARAZ, is a 84 F who presents with pain due to recent right clavicularfracture. Patient was seen in the emergency room on the after she had fallen. Patient was doing something and was trying to just herself holding ontothe back of a chair that chair collapsed and then she fell. She had a markedly angulated displaced right clavicular fracture. She was referred to Dr. Quintanilla and saw him in the office and then was referred to [facility] for further evaluation. She had an appointment for this coming Friday. But since being at home she has not done well. Patient previous to this injury was using a walker but is just been more debilitated and her pain has been poorly controlled. She was discharged with hydromorphone as well as Valium. But sincebeing on the Valium she has been more somnolent and dozing off. She presented back to the emergency room and visit was no change in her fracture but given inability to adequately care for herself and has been unable to ride her for herneeds, the hospital service was contacted for admission. [facility] Medical History Leg edema Open wound of [...] coronary artery (~1989) 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 Essential hypertension [...] 1 cap PO MILTON Y Supplement 09/02/21 02/05/25 History 2 billion cell-50 mg capsule (Probiotic Blend) aspirin 81 mg tablet,delayed 81 mg PO DAILY 01/10/22 0 02/05/25 History release (Adult Aspirin Regimen) d-mannose 500 mg capsule 500 mg PO DAILY 06/07/22 History famotidine 10 mg tablet 10 mg PO BID 06/07/22 History multivitamin 1 tab PO DAILY 06/07/2201/17 History mirabegron 50 mg tablet,extended 50 mg PO QHS Check wi th primary 01/29/23 02/05/25 History release 24 hr (Myrbetriq) doctor albuterol sulfate 2.5 mg/3 mL 2.5 mg (3 mL) inhalation Q6H PRN 04/07/23 Unknown Rx (0.083 %) solution for nebulization Sob &/Or Wheezing #180 mL syringes BD ECLIPSE 04/11/23 Unknown History latanoprost 0.005 % eye drops 1 drp ophthalmic (eye) D AILY 08/13/23 02/05/25 History (Xalatan) nitroglycerin 0.4 mg sublingual 0.4 mg sublingual [...] fluticasone propionate 50 1 spray intranasal DAILY 02/05/25 History mcg/actuation nasal spray,suspension (Allergy Relief (fluticasone)) PEP device #1 ea 04/06/24 Unknown Rx apixaban 5 mg tablet (Eliquis) 5 mg PO BID #180 tabs 1 02/05/25 Rx atorvastatin 40 mg tablet See Rx Instructions .Route 1 02/05/25 Rx .COMPLEX #90 tabs levothyroxine 50 mcg tablet 50 mcg PO DAILY Thyroid #9 0 tabs 06/08/24 02/05/25 Rx memantine 10 mg tablet 10 mg PO BID Alzheimer's #18 0 tabs 06/08/24 02/05/25 Rx pramipexole 0.5 mg tablet 0.5 mg PO BID #180 tabs 05/1902/05/25 Rx vortioxetine 20 mg tablet 20 mg PO DAILY DEPRESSION #9 0 tabs 06/08/24 02/05/25 Rx (Trintellix) brimonidine 0.2 % eye drops 1 drp ophthalmic (eye) QHS 10/14/24 02/05/25 History olopatadine 0.6 % nasal spray 2 spray intranasal DAILY 10/14/24 Unknown History pantoprazole 40 mg tablet,delayed 40 mg PO DAILY 10/1402/05/25 History release potassium chloride 20 mEq 20 meq PO DAILY 10/14/24 History tablet,extended release(part/cryst) (Klor-Con M) furosemide 20 mg tablet 10 mg (1/2 x 20 mg) PO DAILY PRN 11/23/24 Unknown Rx edema #30 tabs lacosamide 100 mg tablet (Vimpat) 100 mg PO BID #180 t abs 12/20/24 02/05/25 Rx cyanocobalamin (vitamin B-12) 1,000 mcg IM QMONTH #10 mL 01/24/25 Unknown Rx 1,000 mcg/mL injection solution denosumab 60 mg/mL subcutaneous 60 mg subcut [id number] #1 mL 01/24/25 Unknown Rx syringe (Prolia) diazepam 2 mg tablet (Valium) 2 mg PO TID PRN Muscle p ain/spasm 02/03/25 02/05/25 Rx 5 days #15 tabs gabapentin 100 mg capsule 300 mg PO QHS restless leg(s ) 02/03/25 02/05/25 History hydromorphone 2 mg tablet 2 mg PO Q6H PRN pain 5 days #20 02/03/25 02/06/25 Rx (Dilaudid) tabs donepezil 10 mg tablet 10 mg PO DAILY 02/06/25/09/11 History Allergy/AdvReac Type Severity Reaction Status Date / [...] Other Verified 02/06/25 07:30 Ambien) Family History Mother CVA (cerebral vascular [...] feel safe at home: Yes ROS ROS Narrative All review of systems were negative except as mentioned above in the history of present illness and the other review of systems. Vital Signs Vital Signs Vital Signs: 02/06/25 07:30 02/06/25 10:58 02/06/25 12:25 Temperature 37.0 C 37.1 C 36.8 C Temperature Source Oral Oral Pulse Rate 74 71 70 Respiratory Rate 18 18 18 Respiratory Effort Respiratory Depth Respiratory Pattern Blood Pressure 119/80 110/76 127/66 H Blood Pressure Mean 93 87 86 Blood Pressure Source Monitor Blood Pressure Position Semi-Fowlers Blood Pressure Location Left Arm Pulse Ox 98 99 97 Oxygen Delivery Method Room Air Nasal Cannula Oxygen Flow Rate (L/min) 2 02/06/25 14:53 Temperature Temperature Source Pulse Rate Respiratory Rate Respiratory Effort Non-Labored Respiratory Depth Normal Respiratory Pattern Normal Blood Pressure Blood Pressure Mean Blood Pressure Source Blood Pressure Position Blood Pressure Location Pulse Ox Oxygen Delivery Method Nasal Cannula Oxygen Flow Rate (L/min) 2 Weight Weight: 49.8 kg Body Mass Index (BMI) 25.4 Physical Exam Const alert Constitutional Narrative: Initially was dozing off during the encounter. Afebrile. Kyphotic. HEENT normocephalic and head/scalp atraumatic Resp normal respiratory effort and no retractions Cardio regular rate, regular rhythm, S1 normal heart sound and S2 normal heart sound GI normal to inspection, nondistended, normoactive bowel sounds, soft to palpation,non-tender and non-distended Extremity Extremity Narrative: Tenting of the skin over the right clavicle. Skin Skin Narrative: Ecchymosis over the right anterior shoulder. Results Lab / Micro Data 02/06/25 08:22 02/06/25 [...] displaced right distal clavicular fracture. Reading Location: [id number] Humerus X-Ray 02/06/25 07:53 IMPRESSION: NO ACUTE FRACTURE OR DISLOCATION. Reading Location: [facility] Assessment & Plan Assessment/Plan (1) Debility: PLAN: Patient with marginal performance status is that she is using a walker before this. Now more limited given the clavicular fracture. PT OT evaluate and treat. I do anticipate patient requiring additional needs such as with long term facility. (2) Closed fracture of right clavicle: PLAN: Subsequent visit Pain control. Will try to utilize nonnarcotics as much as possible. Unfortunately unable to use NSAIDs as patient is already on apixaban and aspirin. Scheduled acetaminophen, Lidoderm patch. As needed hydromorphone oral. Ice as needed. Seen by Dr. Burleson of orthopedics and recommendations at this point time is nonoperative care. He will revisit to discuss potential other options at a later point. Check a 25-hydroxy vitamin D level PLAN: Plan Chronic conditions * DVT: Continue with apixaban * CAD: Continue with aspirin, atorvastatin * Hypothyroidism: Continue levothyroxine * Glaucoma: Continue latanoprost VTE prophylaxis: Not indicated as patient is already anticoagulated. CODE STATUS: Addressed with the patient. Patient wishes to be full code. Case discussed with the patient's and sister at bedside. Charges/Coding Visit Charges Inpatient E&M: 02881 Init Hosp L2 02/06/25 1540 <Electronically signed by Vincent Camp DO> Cosigner Signature (if applicable): CC: Dr. Vincent Camp DO; Dr. Chema Perry MD~ Signed [facility] Work Phone: 1(922) 814-815706-22-2025 Discharge summary [facility] Medical Records Department [address] [place] [address] Emergency Department Summary 02/06/25 MR#: [id number] Acct: [id number] Name: LAUREN ALCARAZ Rep #: [id number] : 1940 84 From: Kana Sttaon PCP: Dr. Chema Perry MD Status:ADM COMFORT Location: [address] History of Present Illness Chief Complaint: Upper Extremity Injury [facility] Medical History Leg edema Open wound [...] coronary artery (~1989) 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 Essential hypertension [...] 1 cap PO MILTON Y Supplement 09/02/21 02/05/25 History 2 billion cell-50 mg capsule (Probiotic Blend) aspirin 81 mg tablet,delayed 81 mg PO DAILY 01/10/22 0 02/05/25 History release (Adult Aspirin Regimen) d-mannose 500 mg capsule 500 mg PO DAILY 06/07/22 History famotidine 10 mg tablet 10 mg PO BID 06/07/22 History multivitamin 1 tab PO DAILY 06/07/22/09/11 History mirabegron 50 mg tablet,extended 50 mg PO QHS Check wi th primary 01/29/23 02/05/25 History release 24 hr (Myrbetriq) doctor albuterol sulfate 2.5 mg/3 mL 2.5 mg (3 mL) inhalation Q6H PRN 04/07/23 Unknown Rx (0.083 %) solution for nebulization Sob &/Or Wheezing #180 mL syringes BD ECLIPSE 04/11/23 Unknown History latanoprost 0.005 % eye drops 1 drp ophthalmic (eye) D AILY 08/13/23 02/05/25 History (Xalatan) nitroglycerin 0.4 mg sublingual 0.4 mg sublingual [...] fluticasone propionate 50 1 spray intranasal DAILY 02/05/25 History mcg/actuation nasal spray,suspension (Allergy Relief (fluticasone)) PEP device #1 ea 04/06/24 Unknown Rx apixaban 5 mg tablet (Eliquis) 5 mg PO BID #180 tabs 1 02/05/25 Rx atorvastatin 40 mg tablet See Rx Instructions .Route 1 02/05/25 Rx .COMPLEX #90 tabs levothyroxine 50 mcg tablet 50 mcg PO DAILY Thyroid #9 0 tabs 06/08/24 02/05/25 Rx memantine 10 mg tablet 10 mg PO BID Alzheimer's #18 0 tabs 06/08/24 02/05/25 Rx pramipexole 0.5 mg tablet 0.5 mg PO BID #180 tabs 1010/1102/05/25 Rx vortioxetine 20 mg tablet 20 mg PO DAILY DEPRESSION #9 0 tabs 06/08/24 02/05/25 Rx (Trintellix) brimonidine 0.2 % eye drops 1 drp ophthalmic (eye) QHS 10/14/24 02/05/25 History olopatadine 0.6 % nasal spray 2 spray intranasal DAILY 10/14/24 Unknown History pantoprazole 40 mg tablet,delayed 40 mg PO DAILY 10/1402/05/25 History release potassium chloride 20 mEq 20 meq PO DAILY 10/14/24 History tablet,extended release(part/cryst) (Klor-Con M) furosemide 20 mg tablet 10 mg (1/2 x 20 mg) PO DAILY PRN 11/23/24 Unknown Rx edema #30 tabs lacosamide 100 mg tablet (Vimpat) 100 mg PO BID #180 t abs 12/20/24 02/05/25 Rx cyanocobalamin (vitamin B-12) 1,000 mcg IM QMONTH #10 mL 01/24/25 Unknown Rx 1,000 mcg/mL injection solution denosumab 60 mg/mL subcutaneous 60 mg subcut [id number] #1 mL 01/24/25 Unknown Rx syringe (Prolia) diazepam 2 mg tablet (Valium) 2 mg PO TID PRN Muscle p ain/spasm 02/03/25 02/05/25 Rx 5 days #15 tabs gabapentin 100 mg capsule 300 mg PO QHS restless leg(s ) 02/03/25 02/05/25 History hydromorphone 2 mg tablet 2 mg PO Q6H PRN pain 5 days #20 02/03/25 02/06/25 Rx (Dilaudid) tabs donepezil 10 mg tablet 10 mg PO DAILY 02/06/2501/17 History Allergy/AdvReac Type Severity Reaction Status Date / [...] Other Verified 02/06/25 07:30 Ambien) Family History Mother CVA (cerebral vascular [...] do you feel safe at home: Yes MDM MDM MDM Narrative Medical decision making narrative: HISTORY OF PRESENT ILLNESS: Chief complaint: Upper extremity injury 84-year-old female history as below presents with increased pain in right shoulder blade and collarbone. The history is provided by the patient and her . They states she did have some minor trauma to the right arm a day and a half ago. She did not fall however she did bump her arm against the wall. The also states the patient has been having trouble getting around secondary to painand diffuse weakness. They state they follow-up with orthopedics on Friday. Notes they saw Dr. Quintanilla in his office. They stated he did not have any acute surgical intervention recommendations. Theystate he further recommended she follow-up with outside orthopedic group called [facility] in [place]. REVIEW OF SYSTEMS: Pertinent positives: Shoulder pain Pertinent negatives: GROSS, CP PHYSICAL EXAM: Nursing triage notes reviewed, Vital signs reviewed Constitutional: please see mdm HENT: MMM Eyes: Pupils equal round and reactive to light, Extraocular muscles intact Neck: No stridor, no JVD, full neck ROM Lungs: Clear to auscultation, No wheezing or rales. No increased work of breathing, no conversational dyspnea, no accessory muscle use, no nasal flaring. No respiratory distress noted Heart: Regular rate and rhythm, No murmurs, No rubs and No gallops, 2+ distal pulses (radial, femoral, posterior tibial) in all extremities Abdomen: Soft, there is no tenderness, rigidity, rebound or guarding, no obviousperitoneal signs, no palpable pulsatile abdominal masses, no auscultated abdominal bruit : No CVAT Extremities: Obvious deformity to right distal clavicle, TTP over clavicle and proximal humerus. Neuro: Intact 5/5 strength with ok sign (median), intact finger abduction (ulnar) intact wrist extension (radial n). Intact sensation in the radial, ulnar, and median nerve distributions. Skin: significant ecchymosis noted over right shoulder, right upper arm. No sign of open fracture MEDICAL DECISION MAKING: Chief Complaint: please see HPI External records reviewed: Reviewed prior imaging studies. Reviewed x-ray and CT scan of the clavicle/upper extremity from 02/03/2025. These images were notedto show significantly cranially displaced distal clavicle fracture. Orthopedic was consulted did not recommend emergent intervention. Patient was discharged on oral Dilaudid and Valium. Factors affecting care: CAD, osteoporosis, GERD, ND, PE (on Eliquis), hyperlipidemia, vascular dementia Social determinants of health: Elderly History obtained from others: none Consults: Orthopedic Surgery (Dr. Quintanilla) - reviewed the patients hx, PE, imaging. Recommended consulted Dr. Bustos as he is a shoulder specialist. Spoke with Dr. Burleson - recommended not operating, no a good surgical candidate but would see her here. MDM Narrative: The patient was initially hemodynamically stable, afebrile and nontoxic- appearing. Exam with after mentioned clavicle deformity and injury I considered the following differential diagnosis: Worsening fracture/dislocation of the right clavicle/right shoulder ALL IMAGES (IF OBTAINED) HAVE BEEN PERSONALLY REVIEWED AND INTERPRETED BY MYSELF. CBC shows no leukocytosis, shows Moderate anemia, no thrombocytopenia CMP without evidence of acute kidney injury, significant electrolyte abnormality, anion gap to suggest end organ hypo-perfusion, no evidence of metabolic acidosis with a normal bicarbonate, no evidence of hepatobiliary obstructive pathology. X-ray of the right clavicle, right humerus read reviewed personally myself. Shows a cranially displaced right clavicular fracture. Humerus x-ray was read by me showed no evidence of obvious fracture dislocation. Agrees to my interpretation. The patient and/or family, caregivers express understanding. The patient and/orfamily, caregivers agrees with the plan. Shared decision making: I will have a discussion with the patient and or visitors regarding risk/benefits of further testing or admission. They will be made aware of of the risk/benefits inherent in this decision they will be given the opportunity to voice understanding. Total critical care time today provided was at least 0 minutes. This excludes separately billable procedures. Critical care time (if documented) is secondary to the patient having high probability ofclinically significant/life threatening deterioration in the patient's condition which required my urgent intervention. Impression: 1. Right clavicle fracture 2. Anemia 3. History of balance difficulties Dispo: [] This note was generated with [employer] dictation software. It may contain incorrect words, spelling, and punctuation that were not noted in review of the chart prior to signing. Discharge Plan Disposition Disposition: Acute Care Hospital [facility] Discharge Date/Time: 02/06/25 11:15 What to do if you have Problems For any increased pain, shortness of breath, bleeding, nausea or vomiting, chest pain, or any unexpected problems, contact your Primary Care Provider. Call [facility] ([phone]) or report to the closest Emergency Room. Call 911 if necessary. 02/06/25 1612 Cosigner Signature (if applicable): CC: Dr. Chema Perry MD ~ Signed [facility]2025 History and physical note [facility] Medical Records Department [address] [place] [address] H&P Exam - Hospitalist 02/06/25 1529 MR#: [id number] Acct: [id number] Name: LAUREN ALCARAZ Rep #: [id number] : 1940 84 From: Vincent Camp DO PCP: Dr. Chema Perry MD Status:ADM COMFORT Location: [place] [address] HPI - General General Date of Admission: 02/06/25 Date of Service: 02/06/25 Chief Complaint: uncontrolled pain. HPI Narrative LAUREN ALCARAZ, is a 84 F who presents with pain due to recent right clavicularfracture. Patient was seen in the emergency room on the after she had fallen. Patient was doing something and was trying to just herself holding ontothe back of a chair that chair collapsed and then she fell. She had a markedly angulated displaced right clavicular fracture. She was referred to Dr. Anne in the office and then was referred to [facility] for further evaluation. She had an appointment for this coming Wednesday. But since being at home she has not done well. Patient previous to this injury was using a walker but is just been more debilitated and her pain has been poorly c ontrolled. She was discharged with hydromorphone as well as Valium. But sincebeing on the Valium she has been more somnolent and dozing off. She presented back to the emergency room and visit was no change in her fracture but given inability to adequately care for herself and has been unable to ride her for herneeds, the hospital service was contacted for admission. [facility] Medical History Leg edema Open wound of [...] coronary artery (~1989) 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 Essential hypertension [...] 1 cap PO MILTON Y Supplement 09/02/21 02/05/25 History 2 billion cell-50 mg capsule (Probiotic Blend) aspirin 81 mg tablet,delayed 81 mg PO DAILY 01/10/22 0 02/05/25 History release (Adult Aspirin Regimen) d-mannose 500 mg capsule 500 mg PO DAILY 06/07/22 History famotidine 10 mg tablet 10 mg PO BID 06/07/22 History multivitamin 1 tab PO DAILY 06/07/22/09/11 History mirabegron 50 mg tablet,extended 50 mg PO QHS Check wi th primary 01/29/23 02/05/25 History release 24 hr (Myrbetriq) doctor albuterol sulfate 2.5 mg/3 mL 2.5 mg (3 mL) inhalation Q6H PRN 04/07/23 Unknown Rx (0.083 %) solution for nebulization Sob &/Or Wheezing #180 mL syringes BD ECLIPSE 04/11/23 Unknown History latanoprost 0.005 % eye drops 1 drp ophthalmic (eye) D AILY 08/13/23 02/05/25 History (Xalatan) nitroglycerin 0.4 mg sublingual 0.4 mg sublingual [...] fluticasone propionate 50 1 spray intranasal DAILY 02/05/25 History mcg/actuation nasal spray,suspension (Allergy Relief (fluticasone)) PEP device #1 ea 04/06/24 Unknown Rx apixaban 5 mg tablet (Eliquis) 5 mg PO BID #180 tabs 1 02/05/25 Rx atorvastatin 40 mg tablet See Rx Instructions .Route 1 02/05/25 Rx .COMPLEX #90 tabs levothyroxine 50 mcg tablet 50 mcg PO DAILY Thyroid #9 0 tabs 06/08/24 02/05/25 Rx memantine 10 mg tablet 10 mg PO BID Alzheimer's #18 0 tabs 06/08/24 02/05/25 Rx pramipexole 0.5 mg tablet 0.5 mg PO BID #180 tabs 05/1902/05/25 Rx vortioxetine 20 mg tablet 20 mg PO DAILY DEPRESSION #9 0 tabs 06/08/24 02/05/25 Rx (Trintellix) brimonidine 0.2 % eye drops 1 drp ophthalmic (eye) QHS 10/14/24 02/05/25 History olopatadine 0.6 % nasal spray 2 spray intranasal DAILY 10/14/24 Unknown History pantoprazole 40 mg tablet,delayed 40 mg PO DAILY 10/1402/05/25 History release potassium chloride 20 mEq 20 meq PO DAILY 10/14/24 History tablet,extended release(part/cryst) (Klor-Con M) furosemide 20 mg tablet 10 mg (1/2 x 20 mg) PO DAILY PRN 11/23/24 Unknown Rx edema #30 tabs lacosamide 100 mg tablet (Vimpat) 100 mg PO BID #180 t abs 12/20/24 02/05/25 Rx cyanocobalamin (vitamin B-12) 1,000 mcg IM QMONTH #10 mL 01/24/25 Unknown Rx 1,000 mcg/mL injection solution denosumab 60 mg/mL subcutaneous 60 mg subcut [id number] #1 mL 01/24/25 Unknown Rx syringe (Prolia) diazepam 2 mg tablet (Valium) 2 mg PO TID PRN Muscle p ain/spasm 02/03/25 02/05/25 Rx 5 days #15 tabs gabapentin 100 mg capsule 300 mg PO QHS restless leg(s ) 02/03/25 02/05/25 History hydromorphone 2 mg tablet 2 mg PO Q6H PRN pain 5 days #20 02/03/25 02/06/25 Rx (Dilaudid) tabs donepezil 10 mg tablet 10 mg PO DAILY 02/06/2501/17 History Allergy/AdvReac Type Severity Reaction Status Date / [...] Other Verified 02/06/25 07:30 Ambien) Family History Mother CVA (cerebral vascular [...] feel safe at home: Yes ROS ROS Narrative All review of systems were negative except as mentioned above in the history of present illness andthe other review of systems. Vital Signs Vital Signs Vital Signs: 02/06/25 07:30 02/06/25 10:58 02/06/25 12:25 Temperature 37.0 C 37.1 C 36.8 C Temperature Source Oral Oral Pulse Rate 74 71 70 Respiratory Rate 18 18 18 Respiratory Effort Respiratory Depth Respiratory Pattern Blood Pressure 119/80 110/76 127/66 H Blood Pressure Mean 93 87 86 Blood Pressure Source Monitor Blood Pressure Position Semi-Fowlers Blood Pressure Location Left Arm Pulse Ox 98 99 97 Oxygen Delivery Method Room Air Nasal Cannula Oxygen Flow Rate (L/min) 2 02/06/25 14:53 Temperature Temperature Source Pulse Rate Respiratory Rate Respiratory Effort Non-Labored Respiratory Depth Normal Respiratory Pattern Normal Blood Pressure Blood Pressure Mean Blood Pressure Source Blood Pressure Position Blood Pressure Location Pulse Ox Oxygen Delivery Method Nasal Cannula Oxygen Flow Rate (L/min) 2 Weight Weight: 49.8 kg Body Mass Index (BMI) 25.4 Physical Exam Const alert Constitutional Narrative: Initially was dozing off during the encounter. Afebrile. Kyphotic. HEENT normocephalic and head/scalp atraumatic Resp normal respiratory effort and no retractions Cardio regular rate, regular rhythm, S1 normal heart sound and S2 normal heart sound GI normal to inspection, nondistended, normoactive bowel sounds, soft to palpation,non-tender and non-distended Extremity Extremity Narrative: Tenting of the skin over the right clavicle. Skin Skin Narrative: Ecchymosis over the right anterior shoulder. Results Lab / Micro Data 02/06/25 08:22 02/06/25 [...] Clear Calc 35.40 L, Est GFR (MDRD) Non- Af 66, BUN/Creatinine Ratio 18.3, Glucose 107 H, Calcium 8.7, Total Bilirubin 0.54,AST 24, ALT 14, Alkaline Phosphatase 98, Total Protein 6.2, Albumin 3.3 L, Globulin 2.8, Albumin/Globulin Ratio 1.2 Imaging Radiology Impression Clavicle X-Ray 02/06/25 07:53 IMPRESSION: No obvious change in the known acute, displaced right distal clavicular fracture. Reading Location: [facility] Humerus X-Ray 02/06/25 07:53 IMPRESSION: NO ACUTE FRACTURE OR DISLOCATION. Reading Location: [facility] Assessment & Plan Assessment/Plan (1) Debility: PLAN: Patient with marginal performance status is that she is using a walker before this. Now more limited given the clavicular fracture. PT OT evaluate and treat. I do anticipate patient requiring additional needs such as with long term facility. (2) Closed fracture of right clavicle: PLAN: Subsequent visit Pain control. Will try to utilize nonnarcotics as much as possible. Unfortunately unable to use NSAIDs as patient is already on apixaban and aspirin. Scheduled acetaminophen, Lidoderm patch. As needed hydromorphone oral. Ice as needed. Seen by Dr. Burleson of orthopedics and recommendations at this point time is nonoperative care. Hewill revisit to discuss potential other options at a later point. Check a 25-hydroxy vitamin D level PLAN: Plan Chronic conditions * DVT: Continue with apixaban * CAD: Continue with aspirin, atorvastatin * Hypothyroidism: Continue levothyroxine * Glaucoma: Continue latanoprost VTE prophylaxis: Not indicated as patient is already anticoagulated. CODE STATUS: Addressed with the patient. Patient wishes to be full code. Case discussed with the patient's and sister at bedside. Charges/Coding Visit Charges Inpatient E&M: 28218 Init Hosp L2 02/06/25 1540 Cosigner Signature (if applicable): CC: Dr. Vincent Camp DO; Dr. Chema Perry MD~ Signed [facility]06[facility]2025 Consult note [facility] Note Date/Time February 06, 2025 10:5 2am [facility] Medical Records Department [address] [place] [address] Consultation - Orthopedics 02/06/25 1040 MR#: [id number] Acct: [id number] Name: LAUREN ALCARAZ Rep #: [id number] : 1940 84 From: Damien Burleson MD PCP: Dr. Chema Perry MD Status:REG ER Location: ED HPI Consult Data Date of Consult: 02/06/25 HPI Narrative HPI Narrative: LAUREN ALCARAZ, is a 84 F who presents with failure to cope and pain related toa distal clavicle fracture. [facility] Medical History Leg edema Open wound of [...] coronary artery (~1989) 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 Essential hypertension [...] denosumab 60 mg/mL subcutaneous 60 mg subcut [id number] #1 mL 01/24/25 Unknown Rx syringe (Prolia) [...] (Reviewed 10/22/24 @ 14:32 by Sandra Vincent CLIENT DELIVERY SPECIALIST, CLIENT DELIVERY SPECIALIST-C) Mother CVA (cerebral vascular accident) Arthritis Father [...] displaced right distal clavicular fracture. Reading Location: [facility] Humerus X-Ray 02/06/25 07:53 IMPRESSION: NO ACUTE FRACTURE OR DISLOCATION. Reading Location: [facility] Assessment & Plan Assessment/Plan (1) Closed [...] the CC ligaments most likely would create penitentiary pain and disability. That being said, surgery [...] applicable): CC: Dr. Chema Perry MD~ Signed [facility] Work Phone: 1(700) 504-332306-22-2025 Evaluation note* Diagnosis Onset Date Resolution Status Admit Date Debility acute February 06 10:51am Closed fracture of right clavicle inactive February 06, 2025 10:51am Right clavicle fracture acute J gabby2024 12:56pm [facility] Work Phone: 1(557) 522-766206-22-2025 Evaluation note* Diagnosis Onset Date Resolution Status Admit Date Debility acute February 06 10:51am Closed fracture of right clavicle inactive February 06, 2025 10:51am Right clavicle fracture acute J gabby 2024 12:56pm Essential hypertension acute 2024 11:23am Falls frequently acute February 11:23am Vascular dementia acute March 142024 11:23am RSD (reflex sympathetic dystrophy) chronic March 14, 2025 11:23am Seizure disorder chronic February 11:23am Bilateral lower extremity edema inactive March 14, 2025 11:23am 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 inactive February 11:23am Episode of shaking inactive February 162024 11:23am Nocturia acute March 22 11:03am Overactive bladder acute March 22, 2025 11:03am Urge incontinence acute March 22, 2025 11:03am UTI (urinary tract infection) acute March 22, 2025 11:03am Vaginal atrophy acute March 11:03am [facility] Work Phone: 1(114) 320-732606-22-2025 Consult note [facility] Medical Records Department [address] [place] [address] Consultation - Orthopedics 02/06/25 1040 MR#: [id number] Acct: [id number] Name: LAUREN ALCARAZ Rep #: [id number] : 1940 84 From: Damien Burleson MD PCP: Dr. Chema Perry MD Status:REG ER Location: ED HPI Consult Data Date of Consult: 02/06/25 HPI Narrative HPI Narrative: LAUREN ALCARAZ, is a 84 F who presents with failure to cope and pain related toa distal clavicle fracture. [facility] Medical History Leg edema Open wound of [...] coronary artery (~1989) 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 Essential hypertension [...] denosumab 60 mg/mL subcutaneous 60 mg subcut [id number] #1 mL 01/24/25 Unknown Rx syringe (Prolia) [...] (Reviewed 10/22/24 @ 14:32 by Sandra Vincent CLIENT DELIVERY SPECIALIST, CLIENT DELIVERY SPECIALIST-C) Mother CVA (cerebral vascular accident) Arthritis Father [...] Clear Calc 35.40 L, Est GFR (MDRD) Non- Af 66, BUN/Creatinine Ratio 18.3, Glucose 107 H, Calcium 8.7, Total Bilirubin 0.54,AST 24, ALT 14, Alkaline Phosphatase 98, Total Protein 6.2, Albumin 3.3 L, Globulin 2.8, Albumin/Globulin Ratio 1.2 Imaging Radiology Impression Clavicle X-Ray 02/06/25 07:53 IMPRESSION: No obvious change in the known acute, displaced right distal clavicular fracture. Reading Location: [facility] Humerus X-Ray 02/06/25 07:53 IMPRESSION: NO ACUTE FRACTURE OR DISLOCATION. Reading Location: [facility] Assessment & Plan Assessment/Plan (1) Closed fracture of right clavicle: PLAN: 84 F with right shoulder pain, failure to cope / need for pain management,closed injury per ED provider, no threatening of the skin. Happened 3 days ago. Reviewed the images and CT scan. Type 1distal clavicle fracture, but also looks like asx [...] the CC ligaments most likely would create exterminator pain and disability. That being said, surgery still has risks because of her medical issues. Surgery would be inthe form of CC ligament reconstruction with allograft (tib ant or semi T) and hook plate to protect. This has downsides as well. Possible infection due to theallograft, large nature of the surgery - 2 hour case, dependence on bonequalityof the coracoid and especially the acromion (fracture, cuff injury) with the hook plate and need for a second surgery to remove the hook plate. Weighing the pros and cons, overall my recommednation here would be non operative care, but OK to admit the patient for pain control and I can speak to them about the options within the next couple days. 02/06/25 1052 Cosigner Signature (if applicable): CC: Dr. Chema Perry MD~ Signed [facility] Radiology Diagnostic study note [facility] Imaging Services [address] [place] [address] Humerus min 2 Views MR#: [id number] Acct: [id number] Name: LAUREN ALCARAZISTER Rep #: [id number] : 1940 F 84 From: Hiwot Chávez MD PCP: Dr. Chema Perry MD Status: REG ER Study:Humerus min 2 Views Date of Exam: 02/06/25 Exam# [id number] Ordering Dr: Lorraine Whitt DO PROCEDURE: HUMERUS [...] NO ACUTE FRACTURE OR DISLOCATION. Reading Location: [facility] CC: Dr. Chema Perry MD; Dr. Kana Whitt DO ~ Page Makeup System Operator: Signed [facility]20[facility] Radiology Diagnostic study note [facility] Imaging Services [address] [place], [place] [id number] Clavicle MR#: [id number] Acct: [id number] Name: LAUREN ALCARAZ Rep #: [id number] : 1940 F 84 From: Hiwot Chávez MD PCP: Dr. Chema Perry MD Status: REG ER Study:Clavicle Date of Exam: 02/06/25 Exam# [id number] Ordering Dr: Lorraine Whitt DO PROCEDURE: CLAVICLE [...] displaced right distal clavicular fracture. Reading Location: [facility] CC: Dr. Chema Perry MD; Dr. Kana Whitt DO ~ Page Makeup System Operator: Signed [facility] Discharge summary [facility] Medical Records Department [address] [place] [address] Emergency Department Summary 02/03/25 MR#: [id number] Acct: [id number] Name: LAUREN ALCARAZ Rep #: [id number] : 1940 84 From: Isma Bustamante DO [...] She states the chair is a small c hair and it turned as she went to [...] this comes in for evaluation. She denies anyotherinjury [facility] Medical History (Updated 02/03/25 @ 07:58 [...] coronary artery (~1989) 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 Essential hypertension [...] denosumab 60 mg/mL subcutaneous 60 mg subcut [id number] #1 mL 01/24/25 Unknown Rx syringe (Prolia) [...] (Reviewed 10/22/24 @ 14:32 by Sandra Vincent CLIENT DELIVERY SPECIALIST, CLIENT DELIVERY SPECIALIST-C) Mother CVA (cerebral vascular accident) Arthritis Father [...] versus dislocation to the right shoulder and x-raywas obtained. This showed a distal clavicle fracture without obvious dislocation. In order to ensure that there is no associated missed fracture or dislocation based on her advanced age and frailty Idid elect to perform a CT scan of the shoulder region. This confirmed fracture without dislocation.The case was then discussed with orthopedic surgeon Dr. Quintanilla. He agrees that as the patient is closed and neurovascularly intact there is no need for emergent intervention. He recommends treatmentwith simple sling and can see the patient [...] changes of the humeral head. Reading Location: [place] [address] X-ray of the right shoulder as interpreted by the emergency medicine physician reveals a fracture to the distal aspect of the right clavicle with cranial displacement. No obvious joint effusion or shoulder dislocation Discharge Plan Triage Chief Complaint: Upper Extremity Injury ED Provider: Isma Bustamante Dx/Rx/DC Orders Clinical Impression: Closed fracture of right clavicle, Essential hypertension, Hyperlipidemia, Hypothyroidism, Current use of penitentiary anticoagulation Instructions: ED Fracture, Clavicle Prescriptions: New [...] .MEDSUPPLY Rx Instructions: Bd SYR/leticia Eclipse 3ml #5782 BD Sry/needle eclips See Rx Instructions IM .COMPLEX Qty: 12 0RF Rx Instructions: intramuscularly; 3ml #2138 uses 1 a month (DME) PEP device [...] 0RF Rx Instructions: Can be administered at [facility] Prolia 60 mg/mL syringe 60 mg subcut [id number] Qty: 1 5RF Primary Care Provider: Chema Perry Referrals: Chema Perry MD [Primary Care Provider] - Jean Claude Quintanilla DO [[facility] Staff - Active Staff] - (Clavicle fracture) Activity Restrictions/Additional Instructions: Wear sling for stabilization of your fractured clavicle. Follow-up with Dr. Quintanilla for repeat evaluation early next week and to discuss further treatment options. Return to the ER should you have any further concerns Print Language: Citizen [place] Disposition Disposition: Home, Self Care What to do if you have Problems For any increased pain, shortness of breath, bleeding, nausea or vomiting, chestpain, or any unexpected problems, contact your Primary Care Provider. Call [facility] ([phone]) or report tothe closest Emergency Room. Call 911 if necessary. 02/03/25 6727 Cosigner Signature (if applicable): CC: Dr. Chema Perry MD ~ Signed [facility] Radiology Diagnostic study note [facility] Imaging Services [address] [place] [address] Extremity Upper without Contra MR#: [id number] Acct: [id number] Name: LAUREN ALCARAZ Rep #: [id number] : 1940 F 84 From: Rodrigue Pritchard MD PCP: Dr. Chema Perry MD Status: REG ER Study:Extremity Upper without Contra Date of Exam: 02/03/25 Exam# [id number] Ordering Dr: Radha Bustamante DO PROCEDURE: EXTREMITY [...] changes of the humeral head. Reading Location[facility] CC: Dr. Chema Perry MD; Isma Bustamante DO ~ Page Makeup System Operator: Signed [facility] Radiology Diagnostic study note [facility] Imaging Services [address] [place], [place] [address] Shoulder min 2 Views MR#: [id number] Acct: [id number] Name: LAUREN ALCARAZ Rep #: [id number] : 1940 F 84 From: Rodrigue Pritchard MD PCP: Dr. Chema Perry MD Status: REG ER Study:Shoulder min 2 Views Date of Exam: 02/03/25 Exam# [id number] Ordering Dr: Radha Bustamante DO PROCEDURE: SHOULDER [...] changes of the humeral head. Reading Location: [facility] CC: Dr. Chema Perry MD; Isma Bustamante DO ~ Page Makeup System Operator: Signed [facility] Telephone encounter Note* Telephone Encounter - Sourav Marcial MD - 12/24/2024 2:58 PM EDT Yes, I will switch you back to furosemide [address] of torsemide. [facility]05-09-2025 Miscellaneous Notes* Telephone Encounter - Sourav Marcial MD - 12/24/2024 2:58 PM EDT Yes, I will switch you back to furosemide [address] of torsemide. * Telephone Encounter - Misty Reyes RN - 12/24/2024 10:09 AM EDT SHELIA; 12/20/2024- Dung The patient had nuclear [...] Dr. Marcial. Please advise. documented [facility]Do[facility] Telephone encounter Note * Telephone Encounter - Misty Reyes RN - 12/24/2024 10:09 AM EDT SHELIA; 12/20/2024- Dung The patient had nuclear [...] Guadalupe Forward to Dr. Marcial. Please advise. [facility]05-08-2025 Instructions* Patient Instructions* Laisha Lizarraga APRN.TAX ASSOCIATE ATTORNEY - 12/23/2024 3:18 PM EDT Continue to participate in physical activity and be cogntiively and socially engaged and active 2. Please schedule Cognitive/Speech Therapy sessions- by calling [phone]. I know there are therapists in the [place] area 3. Can consider getting back into OT later if you need a refresher 4. Can discuss with Dr. Logan re: potentially increasing the gabapentin dose for the neuropathy /RLS For now, I will increase this to 200mg daily. I would like Dr. Logan to later consider taking over refills of this medication. 5. Consider asking the Senior Clerk about your R eyelid ptosis, I am not sure that there is a clear neurological cause for this. Follow up in ~3 months documented in this encounterDoctors Hospital05-08-2025 History of Present illness Narrative* Laisha Lizarraga APRN.ALBERT - 12/23/2024 2:30 PM EDT Images from the original note were not included. Lauren Alcaraz 1940 [address] [facility] [address] December 23, 2024 [facility] FOLLOW-UP NOTE Accompanied by: spouse Delroy Alcaraz is a pleasant 84 year old [...] -- had a few episodes intermittently of lightheadedness/clamminess/presyncope- she felt it was BG related Previous plan included: I will talk w/ my colleagues re: what would be best to help w/ the forward neck curvature, I.e.- PTfor cervical spine, vs other . Also ask your home senior animal trainer about a device for this as [...] today- but she feels that it's too short--she would like to get a larger one [...] These episodes have significantly improved, and she nolonger experiences disorientation at home. She remains keenly [...] twice daily. She plans to see her software deployment engineer afterreturning from vacation and inquires about potential surgical [...] for guests; handling finances;marketing) Vital Signs: BP 121/56 Pulse 70 LMP (LMP Unknown) Current Outpatient Medications on File Prior to Visit Medication Sig torsemide (DEMADEX) 20 mg tablet Take 1 tablet by mouth once daily. gabapentin (NEURONTIN) 100 mg capsule Take 1 capsule by mouth once daily. dorzolamide-timolol (COSOPT) 22.3-6.8 mg/mL ophthalmic solution Use 1 Drop in both eyes two times aday. traMADol 25 mg tablet Take 25 mg [...] 1,000 mcg intramuscularly once every month. Vitamin P-14-pqiojnogasxxyv ammonium lactate (LAC-HYDRIN) 12 % lotion MULTIVITAMIN [...] from 2007 DATE: June 15, 2008 NO: [id number] Indication: Question of seizure Medications: None given [...] Please schedule Cognitive/Speech Therapy sessions- by calling [phone]. I know there are therapists in the [place] area 3. Can consider getting back into OT later if you need a refresher 4. Can discuss with Dr. Lgoan re: potentially increasing the gabapentin dose for the neuropathy /RLS For now, I will increase this to 200mg daily. I would like Dr. Logan to later consider taking over refills of this medication. 5. Consider asking the Senior Clerk about your R eyelid ptosis, I am not sure that there is a clear neurological cause for this. Follow up in ~3 months I spent a total of 40 minutes on the date of service which included [id number] patient care and counseling and educating the patient/spouse. Laisha Lizarraga, MSN, CLIENT DELIVERY SPECIALIST-C, CNRN CC: 1. No primary care provider on file., (fax) None documented in this encounterDoctors Hospital05-08-[address]05-05-2025 Instructions* Patient Instructions* Sourav Marcial MD - 12/20/2024 2:16 PM [...] blood back up to the heart, and leadsto varicose veins and a buildup of fluid in the legs. Certain diseases -- such as congestive heart failure and lung, liver, kidney, and thyroid diseases -- can cause edema or make it worse. Some drugs, such as medications that you are taking for your blood pressure or to control pain, maycause or worsen edema. An allergic reaction, severe inflammation, severino, trauma, clot(s), or poor nutrition can also causeedema. Too much salt from your diet can [...] and might order tests to determine why youhave edema. How is edema treated? Edema can [...] pressure, injury, and extreme temperatures. Injury to theskin over swollen areas takes longer to heal and is more likely to become infected. Call your doctor immediately if you experience any pain, redness, or heat in a swollen area; have an open sore; or experience shortness of breath or swelling of only one limb. documented in this encounterDoctors Hospital05-05-2025 History of Present illness Narrative* Sourav Marcial MD - 12/20/2024 2:00 PM EDT Images from the original note were not included. 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 traMADol 25 mg tablet Take 25 mg [...] 1,000 mcg intramuscularly once every month. Vitamin G-63-yqforglfvpsvkl ammonium lactate (LAC-HYDRIN) 12 % lotion MULTIVITAMIN [...] 99 mg/dL Final Comment: The Citizen [place] Diabetes Association (ADA) provides guidance for cutoff values for fasting glucose andrandom glucose. The ADA defines fasting as no [...] Medical Care in Diabetes 2016, [place] Diabetes Association. Diabetes Care. 2016.39(Suppl 1). BUN [...] drugs, such as warfarin, the [place] College of Chest Physicians 2012 Guideline recommends [...] GH, et al. Chest 2012, 141:7S-47S Yakov RA et al. [facility] 2017, 70: 252-289 Cardiovascular Testing: I reviewed personally. I have personally reviewed the Electrocardiogram, Chest X-ray, Laboratory Testing Carotid Doppler done on November 26, 2023 shows less than 50% stenosis with mild plaque disease [facility] nuclear SPECT scan done on May 2023 also shows normal LV function with no evidence of ischemia ejection fraction of 89%. However, it was done with 69% of maximal Peritrate heart rate obtained. Echocardiogram done in [facility] on 09 July 2024 shows normal LV function withejection fraction of 59%, 2+ tricuspid regurgitation with right ventricular systolic pressure of 59mmHg. 08/03/2024 EKG showed normal sinus rhythm with old inferior wall ND and poor R wave progression with no [...] low fat diet. Sourav Marcial MD, FACC. Workforce Management Coordinator, Dept of Cardiology and Medicine, [facility]. Rental Management Trainee of Ambulatory Cardiology, [facility]. Rental Management Trainee of Cardiac Catheterization laboratory, [facility]. Clinical Asst. direct marketing executive, [facility] and [facility] Staff Replanting Machine Operator, [facility] [place], [facility]. 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 traMADol 25 mg tablet Take 25 mg [...] 1,000 mcg intramuscularly once every month. Vitamin D-47-zwhjhogtpoeezp MULTIVITAMIN ORAL Take 1 tablet by mouth [...] dorsal forearm. No active bleeding. Small oozing ofblood from the area, but appears to be clotting. Normal ROM of the wrist and arm. No tenderness. Noforeign body seen. No drainage or fluctuance Neurological: [...] patient was discharged. Procedures documented in this encounterDoctors Hospital05-01-2025 Telephone encounter Note * Telephone Encounter - Kinza Carlson MA - 12/16/2024 3:34 PM EDT Called and spoke with patient to inform [...] Sending to Dr. Marcial for FYI only. [facility] Miscellaneous Notes* Telephone Encounter - Kinza Carlson MA - 12/16/2024 3:34 PM EDT Called and spoke with patient to inform [...] Sending to Dr. Marcial for FYI only. * Telephone Encounter - Joan Guadalupe APRN.CNP - 12/16/2024 3:22 PM EDT Uncertain why PCP would change the dose. In the future she could obtain refills from the PCP Joan Guadalupe APRN.CNP * Telephone Encounter - Tonya Ivey MA - 12/16/2024 2:59 PM EDT Last Rx sent 08/03/24 with refills to last one year. Spoke with pharmacy staff. They said PCP (non-[facility]) prescribed one month of this medication with no refills which cancelled our Dr Marcial's prescription. Please advise if patient should have PCP continue prescribing. Last OV 08/03/24 Next OV 02/01/25 documented in this encounterDoctors Hospital05-01-2025 Telephone encounter Note * Telephone Encounter - Joan Guadalupe APRN.CNP - 12/16/2024 3:22 PM EDT Uncertain why PCP would change the dose. In the future she could obtain refills from the PCP Joan Guadalupe APRN.ALBERT [facility] Telephone encounter Note* Telephone Encounter - Tonya Ivey MA - 12/16/2024 2:59 PM EDT Last Rx sent 08/03/24 with refills to last one year. Spoke with pharmacy staff. They said PCP (non-[facility]) prescribed one month of this medication with no refills which cancelled our Dr Marcial's prescription. Please advise if patient should have PCP continue prescribing. Last OV 08/03/24 Next OV 02/01/25 [facility]04-18-[address] [facility]04-18-2025 History of Present illness Narrative* Anila De Paz MD - 12/03/2024 11:31 AM EDT Name: Lauren Alcaraz Assessment and Plan: Lauren [...] 03, 2024 11:31 AM documented in this encounterDoctors Hospital04-11-2025 NoteHNO ID: [id number] Author: RADHA STREET, OTR/L Service: ? Author [...] 11/26/2024 Patient will complete HEP at Modified [place] level. (MET) Patient will increase bilateral rental management trainee and pinches by 5# to improve function [...] WITH LEVEL OF FUNCTION: Hand Strength R County Director Welfare Position 2 (lbs): 41 lbs L County Director Welfare Position 2 (lbs): 25 lbs Current Activities [...] was provided in selection of appropriate interventions. Self-Prison Management: 1: UB dressing: problem solving use [...] : 1622 Session Stop Time : 1700 [address]/[facility] [id number] History of Present illness Narrative* Radha Street OTR/Tori - 11/26/2024 5:10 PM EDT Images from the original note were not [...] 11/26/2024 Patient will complete HEP at Modified [place] level. (MET) Patient will increase bilateral rental management trainee and pinches by 5# to improve function [...] WITH LEVEL OF FUNCTION: Hand Strength R County Director Welfare Position 2 (lbs): 41 lbs L County Director Welfare Position 2 (lbs): 25 lbs Current Activities [...] was provided in selection of appropriate interventions. Self-Prison Management: 1: UB dressing: problem solving use [...] : [address] documented in this encounterDoctors Hospital04-05-2025 NoteHNO ID: [id number] Author: RADHA STREET OTR/L Service: ? Author [...] 1622 Session Stop Time : 1646 RENALD[address] [place] [id number] History of Present illness Narrative* Radha Street OTR/L - 11/20/2024 6:11 AM EDT Episode Visit Count: 4 Therapist That Will [...] : [address] documented in this encounterDoctors Hospital04-02-[address]04-01-2025 NoteHNO ID: [id number] Author: TRINA SINGH RN Service: ? Author Type: Registered Nurse Type: Nursing Progress Note Filed: 11/16/2024 12:44 Note Text: Pt reports taking eliquis yesterday (11/15/24). Dr. Jim notified.[facility]04-01-[address]03-31-2025 Telephone encounter Note* Telephone Encounter - Taylor Forrest RN - 11/15/2024 5:09 PM EDT Okay to direct admit per Dr. De Paz Admitting contacted Pt notified. Informed that it may take >24 hours for a bed- [facility] will call to notify once a bed becomes available Advised if symptoms get worse come to ED [facility]03-31-[facility]25 Miscellaneous Notes* Telephone Encounter - Taylor Forrest RN - 11/15/2024 5:09 PM EDT Okay to direct admit per Dr. De Paz Admitting contacted Pt notified. Informed that it may take >24 hours for a bed- [facility] will call to notify once a bed becomes available Advised if symptoms get worse come to ED * Telephone Encounter - Taylor Forrest RN - 11/15/2024 4:38 PM EDT Under the direction of Dr. De Paz, Called and spoke with pt and advised to come to [facility] ED Dr. De Paz reviewed CT ABD, PEHR intact,concerns for CBD not emptying. Pt very tearful, wants to feel better. Continues to experience pain, unable to eat or drink withouthaving liquid stool. Notified MD that pt and on their way to ED. Traveling from [place]. documented in this encounterDoctors Hospital03-31-2025 Telephone encounter Note * Telephone Encounter - Taylor Forrest RN - 11/15/2024 4:38 PM EDT Under the direction of Dr. De Paz, Called and spoke with pt and advised to come to [facility] ED Dr. De Paz reviewed CT ABD, PEHR intact,concerns for CBD not emptying. Pt very tearful, wants to feel better. Continues to experience pain, unable to eat or drink withouthaving liquid stool. Notified MD that pt and on their way to ED. Traveling from [place]. [facility]03-28-2025 NoteHNO ID: [id number] Author: RADHA STREET OTR/L Service: ? Author [...] goals. PLAN FOR NEXT VISIT: hand exercises, rental management trainee strengthening SUBJECTIVE: Can we work on buttons [...] judgement used in selection of appropriate intervention. Self-Prison Management: 1: activity analysis: buttoning, table top [...] 1530 Session Stop Time : 1615 RE[address]/Diana [id number] History of Present illness Narrative* Radha Street OTR/Tori - 11/12/2024 5:20 PM EDT Episode Visit Count: 3 Therapist That Will [...] goals. PLAN FOR NEXT VISIT: hand exercises, rental management trainee strengthening SUBJECTIVE: Can we work on buttons [...] judgement used in selection of appropriate intervention. Self-Prison Management: 1: activity analysis: buttoning, table top [...] : [address]/Tori documented in this encounterDoctors Hospital03-28-2025 Telephone encounter Note * Telephone Encounter - Pippa Fox RN - 11/12/2024 4:01 PM EDT [facility] SPECIAL[facility] CARE COORDINATION TELEPHONE ENCOUNTER Pt contacted the office to get results from her CT scan done at a [facility]ellite facility in [place]. Results are still in process. Pt and informed. [facility]03-28-2025 Miscellaneous Notes* Telephone Encounter - Pippa Fox RN - 11/12/2024 4:01 PM EDT [facility] SPECIALTY CARE COORDINATION TELEPHONE ENCOUNTER Pt contacted the office to get results from her CT scan done at a [facility]ellite facility in [place]. Results are still in process. Pt and informed. documented in this encounterDoctors Hospital03-27-2025 History of Present illness Narrative* Jesika Fuentes, RT(R) - 11/11/2024 2:20 PM EDT Radiology Service Progress Note DATE OF SERVICE: [...] PATIENT PRESENTS WITH AN IMPLANTABLE OR ATTACHED FIRE MANAGEMENT SPECIALIST: No ALLERGIES: Reviewed and unchanged CONTRAST ALLERGY: [...] 2024 TIME: 2:32 PM documented in this encounterDoctors Hospital03-27-[address]03-25-2025 Radiology Diagnostic study note [facility] Imaging Services [address] [place], [place] [address] Chest PA and Lateral MR#: [id number] Acct: [id number] Name: LAUREN ALCARAZ Rep #: [id number] : 1940 F 84 From: Trinidad Doherty MD PCP: Dr. Chema Perry MD Status: REG CLI Study:Chest PA and Lateral Date of Exam: 11/09/24 Exam# [id number] Ordering Dr: Chema Perry MD EXAM: XR [...] Lateral IMPRESSION: Suggestion of COPD. Reading Location: [facility] CC: Dr. Chema Perry MD ~ Page Makeup System Operator: Signed [facility]03-21-2025 NoteHNO ID: [id number] Author: RADHA STREET OTR/Tori Service: ? Author [...] judgement used in selection of appropriate intervention. Self-Prison Management: 1: Educated in ulnar nerve anatomy 2: handwrititng: regular ball point pen with rental management trainee vs regular ball point pen 3: handwriting: [...] 1405 Session Stop Time : 1448 [address]/Diana [id number] History of Present illness Narrative* Radha Street OTR/Tori - 11/05/2024 2:48 PM EDT Episode Visit Count: 2 Therapist That Will [...] judgement used in selection of appropriate intervention. Self-Prison Management: 1: Educated in ulnar nerve anatomy 2: handwrititng: regular ball point pen with rental management trainee vs regular ball point pen 3: handwriting: [...] : 1448 [address]/Tori documented in this encounterDoctors Hospital03-19-2025 Instructions* Patient Instructions* Denice Jacobs PA-C - 11/03/2024 3:54 PM EDT Consult to spine Neuromuscular ultrasound of the right ulnar nerve ([phone]) Follow up as needed documented in this encounterDoctors Hospital03-19-2025 NoteHNO ID: [id number] Author: MARGARET LEONARD LPN Service: ? Author Type: LICENSED NURSE Type: Progress Notes Filed: 11/03/2024 16:43 Note Text:[facility]03-19-[address] 11-03-2024 History of Present illness Narrative* Margaret Leonard LPN - 11/03/2024 3:28 PM EDT * Denice Jacobs PA-C - 11/03/2024 3:28 PM EDT Images from the original note were not included. [facility] Name: Lauren Alcaraz [...] evaluation as she has tried physical therapy andother pain management applications for discomfort in the [...] well. 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 dorzolamide-timolol (COSOPT) 22.3-6.8 mg/mL ophthalmic solution Use 1 Drop in both eyes two times aday. traMADol 25 mg tablet Take 25 mg [...] 1,000 mcg intramuscularly once every month. Vitamin G-47-sjsrofjfrzitas ammonium lactate (LAC-HYDRIN) 12 % lotion MULTIVITAMIN [...] to the right abduction of the hand butotherwise intact. Sensory: Intact light touch. Coordination: Using [...] Range Case Report Surgical Pathology Report Case: [id number] Authorizing Provider: Anila De Paz MD Collected: [...] is a zapata-pink, irregular fatty and fibromembranous softtissue fragment measuring 3.6 x 1.5 x 0.4 cm. The specimen is sectioned to reveal unremarkable cut surfaces with no areas of induration, nodularity, hemorrhage or necrosis identified. The specimen issubmitted entirely in A1. B. Gallbladder Received in [...] The cystic duct margin (en face) and retail wireless sales representative sections of the gallbladder wall are submitted in B1. KSZ September 20, 2024 3:38 PM Gross examination performed at [facility], [address] [place] [address] Clinical History Pre-op diagnosis: Hiatal hernia [K44.9] Epigastric pain [R10.13] Nausea and vomiting, unspecified vomiting type [R11.2] Pre-op exam [Z01.818] Performing Lab Diagnostic interpretation performed at: [facility], [address] [place] [address], [address] [id number] Repair Operator: Rosales Quintana MD COMPLETE BLOOD COUNT Result [...] 4.00 k/uL Monocytes % 8.3 % Abs Carver 0.54 <0.87 k/uL Eosinophils % 0.2 % [...] INTERPRETING PHYSICIAN: Vaibhav Ann MD YS//Report ID: [id number] Creation Date: 02/11/20 11:42 am ELECTRONICALLY SIGNED [...] INTERPRETING PHYSICIAN: Vaibhav Ann MD YS//Report ID: [id number] Creation Date: 02/11/20 11:53 am ELECTRONICALLY SIGNED BY: VAIBHAV ANN MD Date Signed: 02/11/20 11:56 am This note was dictated using [employer] speech recognition software and may contain some [...] which included preparing to see the patient, oylk-dy-jtzn patient care, completing clinical documentation, obtaining and/or reviewing separately obtained history, performing a medically appropriate examination, counseling and educating the pat ient/family/caregiver, and ordering medications, tests, or procedures. documented in this encounterDoctors Hospital03-18-2025 Telephone encounter Note * Telephone Encounter - Taylor Forrest RN - 11/02/2024 2:[address] ABD pel IV con PPI Full liquid diet [facility]03-18-2025 Miscellaneous Notes* Telephone Encounter - Taylor Forrest RN - 11/02/2024 2:[address] ABD pel IV con PPI Full liquid diet documented in this encounterDoctors Hospital03-17-2025 Instructions* Patient Instructions* Humza Camejo MD - 11/01/2024 3:54 PM [...] and you should strongly consider bringing a tour bus driver. documented in this encounterDoctors Hospital03-17-2025 NoteDate of Procedure 11/01/2024. Shovel Loader Operator Information Transportation Refrigeration Technician: NEERU. Start time: 3:43 PM. Stop time: 3:43 PM. 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 Interval Change Right Eye Worse. 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 documented in this encounterDoctors Hospital03-14-2025 Telephone encounter Note * Telephone Encounter - Sandie Messina - 10/29/2024 2:25 PM EDT Incoming call from [facility] pharmacy states the compound that was sent over they do not cover it and it would have to be sent to a different pharmacy. Sandie Messina [facility]03-14-2025 Miscellaneous Notes* Telephone Encounter - Sandie Messina - 10/29/2024 2:25 PM EDT Incoming call from [facility] pharmacy states the compound that was sent over they do not cover it and it would have to be sent to a different pharmacy. Sandie Messina documented in this encounterDoctors Hospital03-14-[address]03-14-2025 History of Present illness Narrative* Anila De Paz MD - 10/29/2024 2:07 PM EDT Name: Lauren Alcaraz Assessment and Plan: Lauren Alcaraz is a 84 year old female who presents for follow up after Lap primary PEHR, gastropexy, cholecystectomy, IOC, transcystic CBD exploration on 09/20/24. She is 4 weeks s/p the surgical intervention. Since then she has been doing well. Just chronic backpain. She is complaining of the left sided [...] 29, 2024 2:07 PM documented in this encounterDoctors Hospital03-14-2025 NoteHNO ID: [id number] Author: RADHA STREET, OTR/L Service: ? Author Type: Occupational Therapist Type: Progress Notes Filed: 10/29/2024 12:32 Note Text: Episode Visit Count: 1 Therapist That Will Accept/Oversee The Plan Of Care: Mando Street Start of Care Date: 10/29/24 Onset Date: 10/29/22 Plan of Care Certification Date: 10/29/24 Next Certification Due Date: 12/28/24 Patient Identified by Name and Date of : Yes [facility] OCCUPATIONAL THERAPY [...] 10/29/24 Patient will complete HEP at Modified [place] level. Patient will increase bilateral rental management trainee and pinches by 5# to improve function [...] Planned: 8 Planned Treatment Interventions: Therapeutic exercise (13876), Neuromuscular re-education (70186), Self-alf management (88001), Patient/Family/Caregiver Education PLAN FOR NEXT VISIT:assess different writing utensils, proximal stability? button hook, gentle rental management trainee strengthening Patient demonstrates good understanding of plan [...] Assistance Available: 24-Hour Equipment Owned: Dressing Stick, Supervisor Baking Pain: Pain Pain Level: 0 (mild arthritic [...] thoracic kyphosis, Forward head Hand Strength R County Director Welfare Position 2 (lbs): 35 lbs L County Director Welfare Position 2 (lbs): 24 lbs R Lateral [...] Body: Modified Independent Bathing (more content not included)...[facility] [id number] History of Present illness Narrative* Radha Street OTR/Tori - 10/29/2024 12:28 PM EDT Images from the original note were not included. Episode Visit Count: 1 Therapist That Will Accept/Oversee The Plan Of Care: Mando Street Start of Care Date: 10/29/24 Onset Date: 10/29/22 Plan of Care Certification Date: 10/29/24 Next Certification Due Date: 12/28/24 Patient Identified by Name and Date of : Yes [facility] OCCUPATIONAL THERAPY EVALUATION PLAN OF CARE: Assessment: Lauren Alcaraz presents with chief complaint of bilateral fine motor coordination impairment that interferes with gripping, pinching (handwriting) . The patient presents with impairments in coordination, sensation, and strength. PROMIS (Patient-Reported Outcomes Measurement Information System) scores were reviewed and identified as a rehabilitation concern. Prognosis for therapy isGood due to: (good motivation) Fair due to: chronic nature of impairments . The patient will benefit from skilled therapy servicesto meet the goals established for this plan of care as noted below. Goals for Episode of Care: established 10/29/24 Patient will complete HEP at Modified [place] level. Patient will increase bilateral rental management trainee and pinches by 5# to improve function for leisure / recreationskills. Patient will demonstrate improved neuromuscular coordination as [...] Planned: 8 Planned Treatment Interventions: Therapeutic exercise (20252), Neuromuscular re- education (66542), Self-alf management (54369), Patient/Family/Caregiver Education PLAN FOR NEXT VISIT:assess different writing utensils, proximal stability? button hook, gentle gripstrengthening Patient demonstrates good understanding of plan of [...] Assistance Available: 24-Hour Equipment Owned: Dressing Stick, Supervisor Baking Pain: Pain Pain Level: 0 (mild arthritic [...] thoracic kyphosis, Forward head Hand Strength R County Director Welfare Position 2 (lbs): 35 lbs L County Director Welfare Position 2 (lbs): 24 lbs R Lateral [...] Review/Additional Education TREATMENT: OT Treatment Interventions : Self-Prison Management Evaluation Self-Prison Management: 1: Pt and spouse educated in [...] : [address]/Tori documented in this encounterDoctors Hospital03-03-2025 Telephone encounter Note * Telephone Encounter - Mi Del Toro - 10/18/2024 7:17 AM EST 10/18/24 PCP is listed in the patient's chart. Thank you! -IN [facility]03-03-2025 Miscellaneous Notes* Telephone Encounter - Mi Garcia - 10/18/2024 7:17 AM EST 10/18/24 PCP is listed in the patient's chart. Thank you! -IN documented in this encounterDoctors Hospital02-27-2025 Evaluation note* Diagnosis Onset Date Resolution Status [...] of spine chronic October 22, 2024 2:11pm [facility] Work Phone: 1(816) 827-836002-27-2025 Evaluation note* Diagnosis Onset Date Resolution Status [...] right clavicle acute February 06, 2025 10:59am [facility] Work Phone: 1([phone]) 782-111902-27-2025 Evaluation note* Diagnosis Onset Date Resolution Status [...] of right clavicle acute February 06, 2025 10:51am Debility acute February 06 10:51am [facility] Work Phone: [phone] 489-262502-26-2025 Instructions* Patient Instructions* Laisha Lizarraga APRN.CNP - 10/13/2024 2:00 PM EST I will talk w/ my colleagues re: what would be best to help w/ the forward neck curvature, I.e.- PTfor cervical spine, vs other . Also ask your home senior animal trainer about a device for this as [...] up in ~3-6 mo documented in this encounterDoctors Hospital02-26-2025 History of Present illness Narrative* Laisha Lizarraga APRN.CNP - 10/13/2024 1:15 PM EST Images from the original note were not included. Lauren Alcaraz 1940 [address] [facility] [address] October 13, 2024 [facility] FOLLOW-UP NOTE Accompanied by: spouse Delroy Alcaraz is a pleasant 84 year old [...] have the numbness/tingling in feet evaluated better -[phone] Follow up in ~3-6 months Today, Lauren [...] 1,000 mcg intramuscularly once every month. Vitamin Y-10-pmwouzlpeupyon ammonium lactate (LAC-HYDRIN) 12 % lotion MULTIVITAMIN [...] from 2007 DATE: June 15, 2008 NO: [id number] Indication: Question of seizure Medications: None given [...] vs other . Also ask your home senior animal trainer about a device for this as [...] on the date of service which included ohcr-lr-sniy patient care and counseling and educating the patient/spouse. Laisha Lizarraga, MSN, CLIENT DELIVERY SPECIALIST-C, CNRN CC: 1. 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 Vitamin X-53-dqwiugnlguyyhb ammonium lactate (LAC-HYDRIN) 12 % lotion MULTIVITAMIN [...] - Diet as tolerated - 5mg of [place] q6hr for 2 weeks until follow up with pain mgmt - Follow up 4 weeks November MD [place] General Surgery PGY2 I saw and evaluated the patient. Discussed with the resident and agree with resident's findings andplan as documented in the resident's note. Anila De Paz MD documented in this encounterDoctors Hospital02-06-[address]02-05-[address]02-04-[address]02-03-[address]02-03-[address] [facility]01-28-2025 Instructions* Patient Instructions* Brenda Moreland APRN.TAX ASSOCIATE ATTORNEY - 09/14/2024 2:02 PM EST PATIENT PREOPERATIVE INSTRUCTIONS Anila De Paz has scheduled you for your procedure at this surgery center: [facility] Scheduling Office: [phone] --[address] [place] [address]. Please read below carefully for your personalized instructions. Arrival Time for Surgery: - To obtain your arrival time for surgery, call your physician's office the day before your surgery. - If your surgery is scheduled for Friday, call the Friday before. Your surgeon s freelance court reporter will tell you what time to call the office. - If you have not reached the departmental freelance court reporter by 5 P.M., call [phone] after 5 P.M. the day before your [...] office. If you are currently using a iena-lbw-hjce injectable or oral medication for diabetes or [...] Advance Directive, please fax a copy to [phone] or email to for it to be [...] day. Brenda Moreland APRN.CNP documented in this encounterDoctors Hospital01-28-2025 History and physical note * Brenda [...] large neck Non-male patient STOP-Bang Score: 4 [id number] Score: Age: >=75 Sex: female CHF history: No Hypertension history: Yes Stroke/TIA/thromboembolism history: Yes Vascular disease history: Yes Diabetes history: No [id number] Score: 7 ARISCAT Score: Age: >80 Preoperative [...] for: arrhythmia, atrial fibrillation, CHF and recent ND. GI: Positive for: abdominal pain and GERD Negative for: dysphagia, diverticulitis, GI bleed <30 days, hepatitis, irritable bowel syndrome,inflammatory bowel disease, liver disease, nausea, vomiting and ETOH >2 drinks/day. : Negative for: dysuria, hematuria, nephrolithiasis and renal failure. FIRE MANAGEMENT OFFICER: Negative for abnormal vaginal bleeding, abnormal vaginal [...] Date Arthritis Asthma 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 Autoimmune disorder [...] 1,000 mcg intramuscularly once every month. Vitamin D-07-knonpqauniwqmx ammonium lactate (LAC-HYDRIN) 12 % lotion denosumab [...] 402 QTC Calculation (Bazett) 448 Calculated P [place] 42 Calculated R [place] -38 Calculated T [place] 49 Impression NORMAL SINUS RHYTHM LEFT AXIS DEVIATION POOR R WAVE PROGRESSION INFERIOR MYOCARDIAL INFARCTION , AGE UNDETERMINED ABNORMAL ECG Confirmed by MD DUNG, QARAB ([id number]), video tape editor TONYA IVEY ([id number]) on 08/03/2024 4:15:08 PM Recent Results (from the past 12833 hour(s)) ECHO Collection Time: 07/09/24 11:20 AM [...] which included preparing to see the patient, giyl-et-lyfs patient care, completing clinical documentation, obtaining and/or reviewing separately obtained history, performing a medically appropriate examination, counseling and educating the pat ient/family/caregiver, and ordering medications, tests, or procedures. SIGNATURE: Brenda Moreland APRN.CNP PATIENT NAME: Lauren Alcaraz DATE: September 14, 2024 TIME: 1:52 PM PAGER/CONTACT #: [facility]01[facility]28[facility] History and physical note* Brenda Moreland [...] plaque Assessment: s/p multiple PCIs 2001, 2002, 2006 and 2007. -Following with Dr. Sourav [...] large neck Non-male patient STOP-Bang Score: 4 [id number] Score: Age: >=75 Sex: female CHF history: No Hypertension history: Yes Stroke/TIA/thromboembolism history: Yes Vascular disease history: Yes Diabetes history: No [id number] Score: 7 ARISCAT Score: Age: >80 Preoperative [...] COVID-19 original vaccine, age 12+ yr, monovalent ([employer]- ChairishNTCagenix - PURPLE TOP) 10/07/2020 Imm Admin: COVID-19 original vaccine, age 12+ yr, monovalent (PFIZER- BIONTECH - PURPLE [facility]) Only the first 3 history entries have [...] for: arrhythmia, atrial fibrillation, CHF and recent ND. GI: Positive for: abdominal pain and GERD Negative for: dysphagia, diverticulitis, GI bleed <30 days, hepatitis, irritable bowel syndrome,inflammatory bowel disease, liver disease, nausea, vomiting and ETOH >2 drinks/day. : Negative for: dysuria, hematuria, nephrolithiasis and renal failure. FIRE MANAGEMENT OFFICER: Negative for abnormal vaginal bleeding, abnormal vaginal [...] Date Arthritis Asthma 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 Autoimmune disorder [...] 1,000 mcg intramuscularly once every month. Vitamin S-54-qljklnwitfexeh ammonium lactate (LAC-HYDRIN) 12 % lotion denosumab [...] 402 QTC Calculation (Bazett) 448 Calculated P [place] 42 Calculated R [place] -38 Calculated T [place] 49 Impression NORMAL SINUS RHYTHM LEFT AXIS DEVIATION POOR R WAVE PROGRESSION INFERIOR MYOCARDIAL INFARCTION , AGE UNDETERMINED ABNORMAL ECG Confirmed by MD DUNG, SOURAV ([id number]), video tape editor TONYA IVEY ([id number]) on 08/03/2024 4:15:08 PM Recent Results (from the past 47330 hour(s)) ECHO Collection Time: 07/09/24 11:20 AM [...] which included preparing to see the patient, etuu-vf-tqge patient care, completing clinical documentation, obtaining and/or reviewing separately obtained history, performing a medically appropriate examination, counseling and educating the pat ient/family/caregiver, and ordering medications, tests, or procedures. SIGNATURE: Brenda Moreland APRN.CNP PATIENT NAME: Lauren Alcaraz DATE: September 14, 2024 TIME: 1:52 PM PAGER/CONTACT #: documented in this encounterDoctors Hospital01-27-2025 Nurse Note* Ana Fuentes RN - [...] OK to discharge. Ana Fuentes RN BSN [facility]01-27-2025 Nurse Note* Ana Fuentes RN - [...] RN In Department: GASTROENTEROLOGY documented in this encounterDoctors Hospital01-27-2025 Nurse Note* Ana Fuentes RN - [...] MATERIAL: Procedure Discharge Instructions REFERRAL (RECOMMENDATION): None [facility]01-27-2025 NoteQ3 Patient Name: Lauren Alcaraz Procedure Date: 09/13/2024 12:35 PM Date of : 1940 Admit Type: Outpatient Age: 84 Gender: Female Note Status: Finalized Attending MD: Alisa Haile MD, [id number] Procedure: Upper EUS Indications: Dilated pancreatic duct [...] to home. Procedure Code(s): --- Professional --- 82899 Diagnosis Code(s): --- Professional --- K44.9 K80.50 K86.89 K83.8 CPT copyright 2020 [place] HASH A (more content not included)...PROVATION 09-13-2024 NoteQ3 Patient Name: Lauren Alcaraz Procedure Date: 09/13/2024 12:34 PM Date of : 1940 Admit Type: Outpatient Age: 84 Gender: Female Note Status: Finalized Attending MD: Alisa Haile MD, [id number] Procedure: ERCP Indications: Bile duct stone(s) Providers: [...] administered by the anesthesia team. Findings: The machine tool designer film was normal. Despite multiple attempts to [...] hernia repair. Procedure Code(s): --- Professional --- 51661 Diagnosis Code(s): --- Professional --- K80.50 CPT copyright 2020 [place] [employer]. All rights reserved. Attending Participation: I was present and participated during the entire procedure, including non-guillermo portions. Scope In: 1:37:28 PM Scope Out: 2:05:[address] Alisa Haile MD 09/13/2024 2:08:23 PM This report has been signed electronically by Alisa Haiel MD Number of Addenda: 0 Note Initiated On: 09/13/2024 12:34 [id number]-27-2025 History and physical note* Arturo Olsen MD - 09/13/2024 1:00 PM EST PROCEDURAL SEDATION HISTORY AND PHYSICAL EXAM SERVICE DATE: 09/13/2024 SERVICE TIME: 1232 Subjective HPI: This is a 84 year old female who presents with Dilated PD and bile duct stone PAST ANESTHESIA HISTORY:No history of adverse event PAST MEDICAL HISTORY Diagnosis Date Arthritis Asthma 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 donepezil (ARICEPT) 10 mg tablet Take 1 tablet by mouth daily with breakfast. gabapentin (NEURONTIN) 100 mg capsule as needed. traMADol (ULTRAM) 50 mg tablet Take 25 mg by mouth two times a day. famotidine (PEPCID) 10 mg tablet Take 10 mg by mouth twice daily. DODEX 1,000 mcg/mL Inject 1,000 mcg intramuscularly once every month. Vitamin E-51-xcvzgwdyimxxhs ammonium lactate (LAC-HYDRIN) 12 % lotion BD [...] September 13, 2024 TIME: 12:32 PM 2023 [facility] Work Phone: 1(825) 568-890701-27-2025 History and physical note* Arturo Olsen MD - 09/13/2024 1:00 PM EST PROCEDURAL SEDATION HISTORY AND PHYSICAL EXAM SERVICE DATE: 09/13/2024 SERVICE TIME: 1232 Subjective HPI: This is a 84 year old female who presents with Dilated PD and bile duct stone PAST ANESTHESIA HISTORY:No history of adverse event PAST MEDICAL HISTORY Diagnosis Date Arthritis Asthma 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 donepezil (ARICEPT) 10 mg tablet Take 1 tablet by mouth daily with breakfast. gabapentin (NEURONTIN) 100 mg capsule as needed. traMADol (ULTRAM) 50 mg tablet Take 25 mg by mouth two times a day. famotidine (PEPCID) 10 mg tablet Take 10 mg by mouth twice daily. DODEX 1,000 mcg/mL Inject 1,000 mcg intramuscularly once every month. Vitamin J-84-fqjljtgzthtyet ammonium lactate (LAC-HYDRIN) 12 % lotion BD [...] 12:32 PM Created 2023 documented in this encounterDoctors Hospital01-27-2025 Nurse Note* Tonya De Santiago RN [...] Tonya De Santiago RN In Department: GASTROENTEROLOGY [facility]01-24-2025 History of Present illness Narrative* Nicolás [...] Care Visit completed when applicable. Brenda Kramer, racket stringer Jonny Beltrán DO documented in this encounterDoctors Hospital01-23-2025 Telephone encounter Note * Telephone Encounter - Jacqueline Noland LPN - 09/09/2024 11:32 AM EST Images from request faxed to [facility] . [facility]01-[facility] Miscellaneous Notes* Telephone Encounter - Jacqueline Noland LPN - 09/09/2024 11:32 AM EST Images from [id number] request faxed to [facility] . documented in this encounterDoctors Hospital01-22-2025 Telephone encounter Note * Telephone Encounter - Taylor Forrest RN - 09/08/2024 2:34 PM EST Spoke with Lauren's Delroy- EUS is scheduled for 09/13/[address] Haile. Reviewed Instructions for Eliquis and Aspirin pre-op. Understands that Eliquis is to be held TWO days before surgery Aspirin only held for ONE day prior to surgery Sent updated Flukle message. [facility]01-[facility] Miscellaneous Notes* Telephone Encounter - Taylor Forrest RN - 09/08/2024 2:34 PM EST Spoke with Lauren's Delroy- EUS is scheduled for Fri09/13/[address] Haile. Reviewed Instructions for Eliquis and Aspirin pre-op. Understands that Eliquis is to be held TWO days before surgery Aspirin only held for ONE day prior to surgery Sent updated Flukle message. documented in this encounterDoctors Hospital01-22-2025 Telephone encounter Note * Telephone Encounter - Susan Srinivasan MD - 09/08/2024 1:51 PM EST Spoke with patient and spouse about MRI findings and that EUS was necessary. All Qs answered. They are willing to come on Friday for EUS Dr. Oumar Murray. Susan Srinivasan MD [facility] Work Phone: [phone] Miscellaneous Notes* Telephone Encounter - Susan Srinivasan MD - 09/08/2024 1:51 PM EST Spoke with patient and spouse about MRI findings and that EUS was necessary. All Qs answered. They are willing to come on Friday for EUS Dr. Oumar Murray. Susan Srinivasan MD documented in this encounterDoctors Hospital01-21-2025 History of Present illness Narrative* Jaqueline [...] PATIENT PRESENTS WITH AN IMPLANTABLE OR ATTACHED FIRE MANAGEMENT SPECIALIST: No ALLERGIES: Reviewed and unchanged CONTRAST ALLERGY: NO. EXAM: MRI - CONTRAST TYPE: GROUP II PERIPHERAL IV DATA: Ambulatory: A peripheral IV was started in the Left upper extremity with a Angio cath: 22 gauge. RADIOLOGY DEPARTMENT: MR; Exam(s) Completed: Body: Pancreas/Biliary SIGNATURE: RT Brice(R) PATIENT NAME: Lauren Alcaraz DATE: September 07, 2024 TIME: 9:32 AM documented in this encounterDoctors Hospital01-21-[address]01-21-2025 Telephone encounter Note* Telephone Encounter - [...] asa until 1 day pre-op? Joan Nolasco [facility] Work Phone: [phone]) 474-886601-21-2025 Miscellaneous Notes* Telephone Encounter - Joan Streeter [...] Joan Streeter RN- PACC documented in this encounterDoctors Hospital01-20-2025 Telephone encounter Note * Telephone Encounter - Sourav Marcial MD - 09/06/2024 5:50 PM EST She can hold aspirin only for 1 day prior to her surgery date as she had 2 coronary artery stents and cannot stop aspirin for any longer than 24 hours. [facility]01-[facility] Telephone encounter Note* Telephone Encounter - Misty Reyes RN - 09/06/2024 2:07 PM EST SHELIA: 08/03/2024- Dung FOV: 02/01/2025- Dung Forward to Dr. Marcial. Please advise. [facility]01-[facility]-20[facility] Telephone encounter Note* Telephone Encounter - [...] prior to DOS. Joan Streeter RN- PACC [facility]-[address]01-20-2025 History of Present illness Narrative* Joan Streeter RN - 09/06/2024 9:22 AM EST RN Pre Visit Questionnaire for upcoming PACC appointment PROCEDURE : LAPAROSCOPIC RPR PARAESOHAGEAL HERNIA W/ FUNDOPLASTY +/- MESH SURGEON : Anila De Paz MD PROCEDURE DATE : 09/20 PACC APPT : 09/15 Do you see a mothercraft nurse, drafter marine, candy decorator or other specialist within or outside of [facility]? SPECIALISTS: CARDIOLOGY: Replanting Machine Operator Dr. Sourav Marcial , Last office visit 08/03 NEUROLOGY: Denice Jacobs PA-C OV 08/06/24 PRIMARY CARE PHYSICIAN: Chema Perry MD ([place]) OV 04/22/24 in scanned doc 05/14/24 [facility]: Tamiko Ku NP-C OV 11/12/23 in scanned doc 07/19 Denies [...] doc 07/19 Most recent CARDIAC CATH: 09/2013 [facility] Most recent carotid duplex 12/02/23 in scanned doc 07/19: Display only: Shearing Machine Tender ([id number]) on 08/03/2024 4:15 PM by Sourav Marcial MD Scan on 07/19/2024 4:02 PM by Lorenzo He PA-C: Echo Scan on 07/19/2024 3:59 PM by Lorenzo He PA-C: Stress Test Scan on 07/19/2024 4:02 PM by Lorenzo He PA-C: Miscellaneous Cardiac Any new changes in your symptoms since you last saw your specialist? no Are you a Pre Diabetic/Diabetic/Weight loss/CHF medications No Dialysis No Skilled Facility Resident: no Any recent hospitalizations outside of [facility]? no Instructions Given to Patient's : hold asa 1 day pre-op and eliquis 2 days pre-op Spouse given verbal preop instructions and voices comprehension and compliance. 09/09 ma SIGNATURE: Joan Streeter RN PATIENT NAME: Lauren Alcaraz DATE: September 06, 2024 TIME: 9:23 AM PAGER/CONTACT PHONE: documented in this encounterDoctors Hospital01-17-2025 History and physical note * Anila [...] Date Arthritis Asthma 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 Autoimmune disorder [...] No history of dysuria, frequency or incontinence FIRE MANAGEMENT OFFICER: Negative for abnormal vaginal bleeding, abnormal vaginal [...] DATE: September 03, 2024 TIME: 3:00 PM [facility]01-17-[facility] History and physical note* Anila De [...] Date Arthritis Asthma 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 Autoimmune disorder [...] No history of dysuria, frequency or incontinence FIRE MANAGEMENT OFFICER: Negative for abnormal vaginal bleeding, abnormal vaginal [...] 2024 TIME: 3:00 PM documented in this encounterDoctors Hospital01-17-[address]01-17-2025 History of Present illness Narrative* Taylor Forrest RN - 09/03/2024 2:47 PM EST Pt with , Delroy PACC questionnaire complete: In-person PACC Wears O2 at night and when napping Slow to wake up from anesthesia - note sent to PACC Pain Management Reviewed surgical plan with pt- agreed upon date of 09/20/[address] De Paz at [facility] ELIQUIS INSTRUCTIONS per Dr. Marcial [...] am of surgery Pt requested transfer to [facility] in [place] for rehab. Will inform team - advised pt to inform lining caser before discharge. AMBULATORY PATIENT EDUCATION NOTE [...] patient education: 20 minutes. documented in this encounterDoctors Hospital01-08-2025 Telephone encounter Note * Telephone Encounter [...] Provided pt and this RN contact info [facility]01-08-2025 Miscellaneous Notes* Telephone Encounter - Taylor [...] this RN contact info documented in this encounterDoctors Hospital12-20-2024 Instructions* Patient Instructions* Denice Jacobs PA-C - 08/06/2024 10:30 AM EST Laboratory studies EMG of the arm and leg Follow up in [facility] (Tuesdays and Wednesdays) after work up documented in this encounterDoctors Hospital12-20-[address]12-20-2024 History of Present illness Narrative* Denice Jacobs PA-C - 08/06/2024 9:47 AM EST Images from the original note were not included. [facility] Name: Lauren Alcaraz [...] her handwriting. Has no burning pain or bodl-fxt-pzrvwmj feeling, just reports a lack of sensation [...] primary care who is outside of the [facility]. 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 donepezil (ARICEPT) 10 mg tablet Take 1 tablet by mouth daily with breakfast. gabapentin (NEURONTIN) 100 mg capsule as needed. traMADol (ULTRAM) 50 mg tablet Take 25 mg by mouth two times a day. famotidine (PEPCID) 10 mg tablet Take 10 mg by mouth twice daily. DODEX 1,000 mcg/mL Inject 1,000 mcg intramuscularly once every month. Vitamin A-30-jhxdhrotizoiou ammonium lactate (LAC-HYDRIN) 12 % lotion BD [...] Skin Biopsy: This note was dictated using [employer] speech recognition software and may contain some [...] which included preparing to see the patient, cxhi-td-powh patient care, completing clinical documentation, obtaining and/or reviewing separately obtained history, performing a medically appropriate examination, counseling and educating the pat ient/family/caregiver, and ordering medications, tests, or procedures. documented in this encounterDoctors Hospital12-17-2024 NoteNORMAL SINUS RHYTHM LEFT AXIS DEVIATION POOR R WAVE PROGRESSION INFERIOR MYOCARDIAL INFARCTION , AGE UNDETERMINED ABNORMAL ECG Confirmed by MD MARCIAL QARAB ([id number]), video tape editor TONYA IVEY ([id number]) on 08/03/2024 4:15:08 PMHEART AND VASCULAR [id number] Instructions* Patient Instructions* Sourav Marcial MD - [...] Interventional procedures are not considered surgery. A mothercraft nurse (not a surgeon) performs theseprocedures to reduce [...] part of your treatment. documented in this encounterDoctors Hospital12-17-[address]12-17-2024 History of Present illness Narrative* Sourav Marcial MD - 08/03/2024 3:29 PM EST Images from the original note were not included. 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 donepezil (ARICEPT) 10 mg tablet Take 1 tablet by mouth daily with breakfast. gabapentin (NEURONTIN) 100 mg capsule as needed. traMADol (ULTRAM) 50 mg tablet Take 25 mg by mouth two times a day. famotidine (PEPCID) 10 mg tablet Take 10 mg by mouth twice daily. DODEX 1,000 mcg/mL Inject 1,000 mcg intramuscularly once every month. Vitamin U-74-cwsmewgoyqoqqz ammonium lactate (LAC-HYDRIN) 12 % lotion MULTIVITAMIN [...] than 50% stenosis with mild plaque disease [facility] nuclear SPECT scan done on May 2023 also shows normal LV function with no evidence of ischemia ejection fraction of 89%. However, it was done with 69% of maximal Peritrate heart rate obtained. Echocardiogram done in [facility] on 09 July 2024 shows normal LV function withejection fraction of 59%, 2+ tricuspid regurgitation with right ventricular systolic pressure of 59mmHg. 08/03/2024 EKG showed normal sinus rhythm with old inferior wall ND and poor R wave progression with no [...] low fat diet. Sourav Marcial MD, FACC. Workforce Management Coordinator, Dept of Cardiology and Medicine, [facility]. Rental Management Trainee of Ambulatory Cardiology, [facility]. Rental Management Trainee of Cardiac Catheterization laboratory, [facility]. Clinical Asst. direct marketing executive, [facility] of Medicine and [facility] Staff Replanting Machine Operator, [facility] [place], [facility]. 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 documented in this encounterDoctors Hospital12-04-2024 Nurse Note* Gina Dietrich LPN - [...] MATERIAL: Procedure Discharge Instructions REFERRAL (RECOMMENDATION): None [facility]12-04-20[facility] Nurse Note* Gina Dietrich LPN - [...] RN In Department: GASTROENTEROLOGY documented in this encounterDoctors Hospital12-04-2024 NoteQ3 Patient Name: Lauren Alcaraz Procedure Date: 07/21/2024 4:12 PM Date of : 1940 Admit Type: Outpatient Age: 83 Gender: Female Note Status: Finalized Attending MD: Eliazar Brown MD, [id number] Procedure: Upper GI endoscopy Indications: Hiatal hernia [...] were provided to the (more content not included)...[id number] Nurse Note* Trina Singh, RN - 07/21/2024 4:31 PM EST PRE OP LEARNING ASSESSMENT PROCEDURE/SURGERY: GI PROCEDURES: EGD READINESS TO LEARN COGNITIVE ABILITY: Alert and oriented MOTIVATION TO LEARN: Eager FAMILY SUPPORT: High - Very involved in pt care PATIENT LEARNS BEST BY: Individual Instruction Verbal Instruction FACTORS AFFECTING LEARNING: None PHYSICAL LIMITATIONS AFFECTING LEARNING: None Electronically Signed By: Trina Singh RN In Department: GASTROENTEROLOGY [facility]12-02-[facility] Evaluation note* Diagnosis Onset Date Resolution [...] of spine chronic October 22, 2024 2:11pm [facility] Work Phone: 1([phone] 800-408312-02-2024 Telephone encounter Note* Telephone Encounter - Dottie Horowitz LPN - 07/19/2024 3:53 PM EST Printed from [employer]. Scanned into [employer] through Onbase scanning. Dottie Horowitz LPN [facility]12-02-2024 Miscellaneous Notes* Telephone Encounter - Dottie Horowitz LPN - 07/19/2024 3:53 PM EST Printed from [employer]. Scanned into [employer] through Onbase scanning. Dottie Horowitz LPN * Telephone Encounter - Willa Torres APRN.CNP - 07/19/2024 3:43 PM EST Please request last cardiac OV and testing. documented in this encounterDoctors Hospital12-02-2024 Telephone encounter Note * Telephone Encounter - Willa Torres APRN.CNP - 07/19/2024 3:43 PM EST Please request last cardiac OV and testing. [facility]11[facility]29-[facility] History and physical note* Willa Torres [...] Osteoporosis Assessment: receiving Prolia Multiple falls Assessment: lauren lee walker Pulmonary embolism (HCC) Assessment: hx 01/2021, [...] large neck Non-male patient STOP-Bang Score: 2 [id number] Score: Age: >=75 Sex: female CHF history: No Hypertension history: No Stroke/TIA/thromboembolism history: Yes Vascular disease history: Yes Diabetes history: No [id number] Score: 6 ARISCAT Score: Age: >80 Preoperative [...] COVID-19 original vaccine, age 12+ yr, monovalent ([employer] - PURPLE TOP) Only the first 3 [...] pain, CHF, congenital heart defect, hypertension, recent ND, PVD, open heart surgery and valve surgery. GI: See HPI. Positive for: dysphagia, esophageal stricture (hx dilation), GERD (hx, otc rx as needed) and vomiting (intermittently) Negative for: abdominal pain, hepatitis, irritable bowel syndrome, inflammatory bowel disease, liver disease, nausea, pancreatitis and ETOH >2 drinks/day. : Positive for: urinary incontinence (+OAB, on rx). 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 Taking Yes donepezil [...] 1,000 mcg intramuscularly once every month. Vitamin Y-87-bspxdumernoixw Taking Yes ammonium lactate (LAC-HYDRIN) 12 % [...] 8760 hour(s)). Recent Results (from the past 35983 hour(s)) ECHO Collection Time: 07/09/24 11:20 AM [...] 16, 2024 TIME: 2:48 PM PAGER/CONTACT #: [facility] History and physical note* Willa Torres [...] following [facility], last OV 11/12/2023 scanned into [employer] Stress test 05/2023 negative for ischemia. Pt [...] large neck Non-male patient STOP-Bang Score: 2 [id number] Score: Age: >=75 Sex: female CHF history: No Hypertension history: No Stroke/TIA/thromboembolism history: Yes Vascular disease history: Yes Diabetes history: No [id number] Score: 6 ARISCAT Score: Age: >80 Preoperative [...] pain, CHF, congenital heart defect, hypertension, recent ND, PVD, open heart surgery and valve surgery. GI: See HPI. Positive for: dysphagia, esophageal stricture (hx dilation), GERD (hx, otc rx as needed) and vomiting (intermittently) Negative for: abdominal pain, hepatitis, irritable bowel syndrome, inflammatory bowel disease, liver disease, nausea, pancreatitis and ETOH >2 drinks/day. : Positive for: urinary incontinence (+OAB, on rx). 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 Taking Yes donepezil [...] 1,000 mcg intramuscularly once every month. Vitamin Y-21-tbaofwpdxrduwq Taking Yes ammonium lactate (LAC-HYDRIN) 12 % [...] 8760 hour(s)). Recent Results (from the past 79807 hour(s)) ECHO Collection Time: 07/09/24 11:20 AM [...] 2:48 PM PAGER/CONTACT #: documented in this encounterDoctors Hospital11-29-2024 Instructions* Patient Instructions* Willa Torres APRN.CNP - 07/16/2024 2:42 PM EST Images from the original note were not included. [facility] PATIENT PREOPERATIVE INSTRUCTIONS No ref. provider found has scheduled you for your procedure at this surgery center: [facility] Scheduling Office: [phone] --[address] [place] [address]. Please read below carefully for your personalized [...] office. If you are currently using a ppkw-zhc-poja injectable or oral medication for diabetes or [...] or other anticoagulants without consulting with your mothercraft nurse or prescribing physician. - Stop ALL herbal [...] Procedures: - YOU MUST HAVE A RESPONSIBLE DRILLER BRAKE LINING TAKE YOU HOME. A PROJECT ADMINISTRATOR OR SENIOR UI SOFTWARE ENGINEER CANNOT BE MADE A RESPONSIBLE DRILLER BRAKE LINING. - We recommend that a responsible person [...] call the Friday before. Your surgeon s freelance court reporter will tell you what time to call the office. - If you have not reached the departmental freelance court reporter by 5 P.M., call [phone] after 5 P.M. the day before your surgery. Please be aware that emergency situations arise, which may delay or change your surgical time. If this happens, we will notify you as soon as possible and regret any inconvenience. If you already have an Advance Directive, please fax a copy to [phone] or email to for it to be [...] day. Willa Torres APRN.ALBERT documented in this encounterDoctors Hospital11-27-2024 Telephone encounter Note * Telephone Encounter [...] have family/friend present for procedure transport home:Patient/patient retail wireless sales representative was told that if they do [...] area. Any barriers to Patient learning: Patient/Patient Tmr Teacher responded appropriately on phone. Type of instruction given: Verbal by telephone contact. Jaqueline Del Cid RN [facility]11-27-2024 Miscellaneous Notes* Telephone Encounter - Jaqueline [...] have family/friend present for procedure transport home:Patient/patient retail wireless sales representative was told that if they do [...] area. Any barriers to Patient learning: Patient/Patient Tmr Teacher responded appropriately on phone. Type of instruction given: Verbal by telephone contact. Jaqueline Del Cid RN documented in this encounterDoctors Hospital11-21-2024 Telephone encounter Note * Telephone Encounter - Terri Orosco RN - 07/08/2024 11:05 AM EST Patients called back to office today. Spoke with spouse and all questions answered. Discussed need for holding blood thinner for EGD which spouse will reach out to local mothercraft nurse for instructions. [facility] Miscellaneous Notes* Telephone Encounter - Terri Orosco RN - 07/08/2024 11:05 AM EST Patients called back to office today. Spoke with spouse and all questions answered. Discussed need for holding blood thinner for EGD which spouse will reach out to local mothercraft nurse for instructions. * Telephone Encounter - Mary Anne Wing - 07/07/2024 9:56 AM EST Patient called in and would like someone to go over instructions with her regarding her upcoming EGD. Please call [phone] this is her phone number the number in epic is her husbands cell. Mary Anne Oneile documented in this encounterDoctors Hospital11-20-2024 Telephone encounter Note * Telephone Encounter - Nielsen Mary Anne Youssef - 07/07/2024 9:56 AM EST Patient called in and would like someone to go over instructions with her regarding her upcoming EGD. Please call [phone] this is her phone number the number in epic is her husbands cell. Mary Anne Oneile [facility]-20-[facility]24 Telephone encounter Note* Telephone Encounter - Fatimah Robbins RN - 07/07/2024 9:50 AM EST Verbal instructions given for EGD/ Instructions mailed to patient home on 07/07/2024 [facility] Miscellaneous Notes* Telephone Encounter - Fatimah Robbins RN - 07/07/2024 9:50 AM EST Verbal instructions given for EGD/ Instructions mailed to patient home on 07/07/2024 documented in this encounterDoctors Hospital11-18-2024 Evaluation note* Diagnosis Onset Date Resolution Status Admit Date Osteoarthritis of right knee noneact song July 05, 2024 1:18pm 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 July 07, 2024 11:42am Hiatal hernia acute July 072023 11:42am Hyperlipidemia acute June 192023 11:42am Hypothyroidism acute June 192023 11:42am Presence of stent in coronar y artery acute July 07 024 11:42am Shortness of breath on exertion acute July 07 024 11:42am Vascular dementia acute 2023 11:42am aquired autoimmune encephalopathy chronic July 07, 2 024 11:42am Bronchiectasis chronic June 192023 11:42am Difficulty [...] of spine chronic October 22, 2024 2:11pm [facility] Work Phone: 1(536) 998-373611-14-2024 Instructions* Patient Instructions* Laisha Lizarraga APRN.TAX ASSOCIATE ATTORNEY - 07/01/2024 2:32 PM EST Continue the current medications as you have been 2. Contnue to be active, busy and cognitively/socially engaged 3. Be cautious with fall prevention 4. Continue to follow w/ Dr. De Paz 5. Consider seeing the Neuromuscular dept to have the numbness/tingling in feet evaluated better -[phone] Follow up in ~3-6 months documented in this encounterDoctors Hospital11-14-2024 History of Present illness Narrative* Laisha Lizarraga APRN.ALBERT - 07/01/2024 1:45 PM EST Lauren Alcaraz 1940 [address] [facility] [address] July 01, 2024 [facility] FOLLOW-UP NOTE Accompanied by: [...] struggling with chronic back pain/scoloisis/kyphosis- following w/ [facility] -- reporting increased fine motor difficulty, poor writing legibility, shakiness -- early satiety r/t hiatal hernia Previous plan included: Will look into whether there is a holistic and all-encompassing provider you could see who can synthesize all the data from your various specialists 2. Keep working hard at the therapy and PT! 3. See what the [facility] feels about the thoracic pain tomorrow- pending that- we may consider referring you to our spine dept 4. Keep the medications the same for now Today, Lauren and her spouse returns for a routine follow up visit. She did have a visit at the [facility] and she felt that not much [...] FLUTICASONE,) 50 mcg/actuation nasal spray Use 1 [place] in each nostrilonce daily. donepezil (ARICEPT) 10 [...] 1,000 mcg intramuscularly once every month. Vitamin M-52-gjnbptyfmaljls ammonium lactate (LAC-HYDRIN) 12 % lotion BD [...] from 2007 DATE: June 15, 2008 NO: [id number] Indication: Question of seizure Medications: None given [...] have the numbness/tingling in feet evaluated better -[phone] Follow up in ~3-6 months I spent a total of 40 minutes on the date of service which included dcow-yf-aufg patient care and counseling and educating the patient/spouse. Laisha Lizarraga, MSN, CLIENT DELIVERY SPECIALIST-C, CNRN CC: 1. No primary care provider on file., (fax) None documented in this encounterDoctors Hospital11-14-[address] Nurse Note* Arun Buenrostro MA - [...] oz) LMP (LMP Unknown) BMI 19.87 kg/m [facility]11-14-2024 Nurse Note* Arun Buenrostro MA [...] Unknown) BMI 19.87 kg/m documented in this encounterDoctors Hospital11-07-2024 History of Present illness Narrative* Jesika [...] PATIENT PRESENTS WITH AN IMPLANTABLE OR ATTACHED FIRE MANAGEMENT SPECIALIST: No ALLERGIES: Reviewed and unchanged CONTRAST ALLERGY: [...] 2024 TIME: 4:06 PM documented in this encounterDoctors Hospital11-07-[address]-01-[facility] History of Present illness Narrative* Taylor [...] - Stop all ASA and NSAID products, [place] 3 fish oil, herbal products such as ginko etc.for 7 days prior to procedure - Medication List reviewed. Patient agreed to hold EliOcapo 3 days before procedure - Patient aware - must have a responsible tour bus driver on the day of procedure. Patient stated good understanding and agreed with plan. Provided contact number for this RN. 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 Autoimmune disorder [...] No history of dysuria, frequency or incontinence FIRE MANAGEMENT OFFICER: Negative for abnormal vaginal bleeding, abnormal vaginal [...] EGD Echo and cardiology evaluation at the [facility] CT Chest/Abd/Pel with IV con Creat Consult to Internal Medicine SIGNATURE: Anila De Paz MD PATIENT NAME: Lauren Alcaraz DATE: June 18, 2024 TIME: 1:12 PM [facility] History and physical note* Anila De [...] Date Arthritis Asthma 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 He was at the store an unable to go into detail. States that all pt's records and images were sent to F - This RN is unable to locate. Last CT ABD per was in JUN 2023 at [facility]. She may have had an EGD years ago States that his 's situation is declining and her quality of life is affected. Called [facility] - only CT results they have on file are from Jun [address] Chest and CT abd results be pushed to [facility] for her appt tomorrow. CT ABD/pel w IV contrast 07/12/22 Impression: 1.) stable right inguinal hernia. Small bowel present, no obstruction seen. 2.) Large Hiatal hernia 3.) Dilatation of CBD - no obvious stones [facility]10-31-2024 Miscellaneous Notes* Telephone Encounter - Taylor Forrest RN - 06/17/2024 11:15 AM EDT Spoke briefly with pt's , Delroy. He was at the store an unable to go into detail. States that all pt's records and images were sent to [facility] - This RN is unable to locate. Last CT ABD per was in JUN 2023 at [facility]. She may have had an EGD years ago States that his 's situation is declining and her quality of life is affected. Called [facility] - only CT results they have on file are from Jun [address] Chest and CT abd results be pushed to [facility] for her appt tomorrow. CT ABD/pel w IV contrast 07/12/22 Impression: 1.) stable right inguinal hernia. Small bowel present, no obstruction seen. 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 Patient was recently in [facility] emergency department underwent an abdomen and pelvis [...] Date Arthritis Asthma 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 Autoimmune disorder [...] daily. azelastine 0.1% nasal spray Use 1 [place] in each nostril two times a day. cetirizine (ZYRTEC) 10 mg tablet Take 10 mg by mouth once daily as needed. diazePAM (VALIUM) 2 mg tablet Take 2 mg by mouth at bedtime as needed for anxiety. fluticasone (ALLERGY RELIEF, FLUTICASONE,) 50 mcg/actuation nasal spray Use 1 [place] in each nostrilonce daily. valACYclovir (VALTREX) 500 [...] 1,000 mcg intramuscularly once every month. Vitamin B-99-olsujtsucfbpoc ammonium lactate (LAC-HYDRIN) 12 % lotion BD [...] going to get a referral up to [facility] for this large hiatal hernia. Hopefully [...] Susan Squires III, MD documented in this encounterDoctors Hospital09-30-2024 Nurse Note* Marian José RN - [...] 06/25/2018 Last Colonoscopy: never Marian José RN [facility]09-30-2024 Nurse Note* Marian José RN - [...] never Marian José RN documented in this encounterDoctors Hospital09-16-2024 NoteDate of Procedure 05/03/2024. Shovel Loader Operator Information was not able due to head position . NFL Interpretation Right Eye Diffuse loss. Left Eye Diffuse loss. Interval Change Right Eye Stable. 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 I have seen and examined Lauren Alexus Lissa. I have discussed the case and the management of this patient's care with the Resident/Fellow, if applicable. I also have reviewed and agree with the assessment and plan as stated above and agree withall of its relevant components. documented in this encounterDoctors Hospital08-08-2024 Instructions* Patient Instructions* Laisha Lizarraga APRN.CNP - 03/25/2024 2:26 PM EDT Will look into whether there is a holistic and all-encompassing provider you could see who can synthesize all the data from your various specialists 2. Keep working hard at the therapy and PT! 3. See what the [facility] feels about the thoracic pain tomorrow- pending that- we may consider referring you to our spine dept 4. Keep the medications the same for now Follow up pending the results from the above-- potentially 3 months documented in this encounterDoctors Hospital08-08-2024 History of Present illness Narrative* Laisha Lizarraga APRN.CNP - 03/25/2024 1:45 PM EDT Lauren Alcaraz 1940 [address] [facility] [address] March 25, 2024 [facility] FOLLOW-UP NOTE Accompanied by: spouse Delroy Alcaraz is a pleasant 83 year old female seen today for a follow up visit. aLuren Alcaraz is being followed for (F03.90) Dementia [...] and working out regularly! Keep working with Juan Miguel! 3. Maintain the highly motivated attitude! Today, [...] of T/L spine performed on 03/19 at [facility] and they will see the doctor [...] from 2007 DATE: June 15, 2008 NO: [id number] Indication: Question of seizure Medications: None given [...] during this recording. CSF Alzheimer's Disease Biomarkers [facility] Phospho-tau) from 01/2020 A-Beta 42: 573 [...] therapy and PT! 3. See what the [facility] feels about the thoracic pain tomorrow- pending that- we may consider referring you to our spine dept 4. Keep the medications the same for now Follow up pending the results from the above-- potentially 3 months I spent a total of 40 minutes on the date of service which included pawx-zx-vlcp patient care and counseling and educating the patient/spouse. Laisha Lizarraga, MSN, CLIENT DELIVERY SPECIALIST-C, CNRN CC: 1. No primary care provider on file., (fax) None documented in this encounterDoctors Hospital08-07-2024 Telephone encounter Note * Telephone Encounter - Bety Henry - 03/24/2024 1:36 PM EDT Request a 30 day emergency supply (script) of Latanoprost be sent to the [facility] . I will be out of this medication in 3 to 4 days and [facility] will not fill the existing script until 04 April and I will not receive it until about April 16. Please advise me that this message has been received and the script sent to [facility]. 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 Humza Camejo MD [facility] Work Phone: [phone]) 765-222908-07-2024 Miscellaneous Notes* Telephone Encounter - Bety Henry - 03/24/2024 1:36 PM EDT Request a 30 day emergency supply (script) of Latanoprost be sent to the [facility] . I will be out of this medication in 3 to 4 days and [facility] will not fill the existing script until 04 April and I will not receive it until about April 16. Please advise me that this message has been received and the script sent to [facility]. 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 Humza Camejo MD documented in this encounterDoctors Hospital07-26-2024 Telephone encounter Note * Telephone Encounter - Laisha Lizarraga APRN.CNP - 03/12/2024 12:08 PM EDT The following approved medication requests have been transmitted electronically. Requested Prescriptions Signed Prescriptions Disp Refills donepezil (ARICEPT) 10 mg tablet 90 tablet 3 Sig: Take 1 tablet by mouth daily with breakfast. Authorizing Provider: LAISHA LIZARRAGA APRN.CNP [facility]07-26-2024 Miscellaneous Notes* Telephone Encounter - Laisha Lizarraga APRN.CNP - 03/12/2024 12:08 PM EDT The following approved medication requests have been transmitted electronically. Requested Prescriptions Signed Prescriptions Disp Refills donepezil (ARICEPT) 10 mg tablet 90 tablet 3 Sig: Take 1 tablet by mouth daily with breakfast. Authorizing Provider: LAISHA LIZARRAGA APRN.CNP documented in this encounterDoctors Hospital05-10-2024 Telephone encounter Note * Telephone Encounter - Bety Henry - 12/26/2023 3:53 PM EDT Patient's request for medication is as follows: Requested Prescriptions Pending Prescriptions Disp Refills latanoprost (XALATAN) 0.005 % ophthalmic solution 7.5 mL Sig: Use 1 Drop in both eyes daily at bedtime. Prescription(s) as above. Please process accordingly. 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 Humza Camejo MD documented in this encounterDoctors Hospital05-10-2024 Telephone encounter Note * Telephone Encounter - Romero Ojeda PA-C - 12/26/2023 10:22 AM EDT The following approved medication requests have been transmitted electronically. Requested Prescriptions Signed Prescriptions Disp Refills donepezil (ARICEPT) 10 mg tablet 90 tablet 3 Sig: TAKE 1 TABLET BY MOUTH DAILY WITH BREAKFAST Authorizing Provider: LAISHA LIZARRAGA Ordering User: ROMERO OJEDA PA-C [facility] Work Phone: [phone] Miscellaneous Notes* Telephone Encounter - Romero Ojeda PA-C - 12/26/2023 10:22 AM EDT The following approved medication requests have been transmitted electronically. Requested Prescriptions Signed Prescriptions Disp Refills donepezil (ARICEPT) 10 mg tablet 90 tablet 3 Sig: TAKE 1 TABLET BY MOUTH DAILY WITH BREAKFAST Authorizing Provider: LAISHA LIZARRAGA Ordering User: ROMERO OJEDA PA-C documented in this encounterDoctors Hospital04-04-2024 Discharge summary Author Aquiles aFng [facility] November 20, 2023 8:31am Note Date/Time November 20, 2023 8:31 am [facility] Physical Therapy [facility] [address] [place] [address] / REHABILITATION SERVICES DISCHARGE SUMMARY MR#: [id number] Acct: [id number] Name: LAUREN ALCARAZ Rep #: [id number] : 1940 83 From: Aquiles DAVIS T Referring Dr.: Dr. Porfirio Bloom MD Status: REG RCR Insurance: MEDICARE PART A B [id number] Patient Information Patient Information: LAUREN ALCARAZ was [...] was in need and Ireferred her to [facility]. I did talk with her [...] Dr. 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 This will likely make your vision blurry for several hours, and you should strongly consider bringing a tour bus driver. 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 Humza Camejo MD documented in this encounterDoctors Hospital02-29-2024 Instructions* Patient Instructions* Laisha Lizarraga APRN.ALBERT - 10/16/2023 3:34 PM EST PLAN: Please increase donepezil to 10mg daily -- can start using two 5mg tablets daily in morning - watching for stomach side effects. Please let me know if you appetite or satiation worsens 2. Keep going to the gym and working out regularly! Keep working with Juan Miguel! 3. Maintain the highly motivated attitude! Follow up in 4-6 months documented in this encounterDoctors Hospital02-29-2024 History of Present illness Narrative* Laisha Lizarraga APRN.CNP - 10/16/2023 2:30 PM EST Lauren Alcaraz 1940 [address] [facility] [address] October 16, 2023 [facility] FOLLOW-UP NOTE Accompanied by: [...] from 2007 DATE: June 15, 2008 NO: [id number] Indication: Question of seizure Medications: None given [...] and working out regularly! Keep working with Juan Miguel! 3. Maintain the highly motivated attitude! Follow up in 4-6 months I spent a total of 40 minutes on the date of service which included xiwu-se-khlk patient care and counseling and educating the patient/spouse. Laisha Lizarraga, MSN, CLIENT DELIVERY SPECIALIST-C, CNRN CC: 1. No primary care provider on file., (fax) None documented in this encounterDoctors Hospital10-30-2023 Instructions* Patient Instructions* Laisha Lizarraga APRN.CNP [...] up in 4-6 months documented in this encounterDoctors Hospital10-30-2023 History of Present illness Narrative* Laisha Lizarraga, ROSMERY.TAX ASSOCIATE ATTORNEY - 06/16/2023 1:45 PM EDT Lauren Alcaraz 1940 [address] [facility] [address] June 16, 2023 [facility] FOLLOW-UP NOTE Accompanied by: spouse Delroy SUBJECTIVE Lauren Alcaraz is a pleasant 82 [...] vision lately, which she has seen her Senior Clerk about and who has ordered her a [...] from 2007 DATE: June 15, 2008 NO: [id number] Indication: Question of seizure Medications: None given [...] disturbance, psychotic disturbance, mood disturbance, or anxiety ([facility]) (primary encounter diagnosis) (Z86.69) History of complex [...] on the date of service which included ntrg-xg-yqlj patient care and counseling and educating the patient/spouse. Laisha Lizarraga, MSN, CLIENT DELIVERY SPECIALIST-C, CNRN CC: 1. No primary care provider on file., (fax) None documented in this encounterDoctors Hospital10-30-2023 Nurse Note* Lisbeth Rob - 06/16/2023 [...] Unknown) BMI 21.41 kg/m documented in this [facility]10-06-2023 Miscellaneous Notes* Telephone Encounter - Romero Ojeda PA-C - 05/23/2023 4:04 PM EDT The following approved medication requests have been transmitted electronically. Requested Prescriptions Signed Prescriptions Disp Refills donepezil (ARICEPT) 5 mg tablet 90 tablet 1 Sig: Take 1 tablet by mouth daily with breakfast. Authorizing Provider: LAISHA LIZARRAGA Ordering User: ROMERO OJEDA PA-C documented in this [facility]08-22-2023 Miscellaneous Notes* Telephone Encounter - Laisha Lizarraga APRN.CNP - 04/08/2023 4:32 PM EDT The following approved medication requests have been transmitted electronically. Requested Prescriptions Signed Prescriptions Disp Refills donepezil (ARICEPT) 5 mg tablet 90 tablet 1 Sig: Take 1 tablet by mouth daily with breakfast. 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 Essential hypertension acute Lightheadedness acute Hyperlipidemia chronic Mass of upper inner quadrant of left breast acute Contusion of thoracic wall a cute Lumbar contusion acute 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 Cancer acute Essential hypertension acute Hyperlipidemia acute Hypothyroidism acute Mass of upper inner quadrant of left breast acute Presence of stent in coronary artery acute Right inguinal hernia acute Vitamin B 12 deficiency acut e Gastroesophageal reflux disease chronic ERIS (obstructive sleep apnea) chronic Restless leg syndrome chroni c Sternal deformity acute Bee sting acute [facility] Work Phone: 1(291) 879-475607-18-2023 Evaluation note* Diagnosis Onset Date Resolution Status Pain of left lower extremity acute Bronchiectasis acute Hypoxemia acute ERIS (obstructive sleep apnea) chronic Breast lump on left side at 1 o'clock position acute Left knee pain acute Restless leg syndrome chroni c 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 Essential hypertension acute Lightheadedness acute Hyperlipidemia chronic Mass of upper inner quadrant of left breast acute Contusion of thoracic wall a cute Lumbar contusion acute 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 Cancer acute Essential hypertension acute Hyperlipidemia acute Hypothyroidism acute Mass of upper inner quadrant of left breast acute Presence of stent in coronary artery acute Right inguinal hernia acute Vitamin B 12 deficiency acut e Gastroesophageal reflux disease chronic ERIS (obstructive sleep apnea) chronic Restless leg syndrome chroni c Sternal deformity acute [facility] Work Phone: 1(199) 973-116306-28-2023 Discharge summary Author Jerri Boyd [facility] February 12, 2023 1:48pm Note Date/Time February 12, 2023 1:48 pm [facility] Occupational Therapy [facility] [address] [place] [address] [address] [place] [id number] / REHABILITATION SERVICES DISCHARGE SUMMARY MR#: [id number] Acct: [id number] Name: LAUREN ALCARAZ Rep #: [id number] : 1940 82 From: Jerri Boyd OTR/L, [...] Improvement % Improvement: 15 Objective Objective/Function: right rental management trainee strength 45# left 30# left lateral pinch 4# and tripod pinch 6# pt has not made gains in left rental management trainee strength and at this time is d/c. with HEP. pt has hx of left intra-articular fx of left distal radius as well as left thumbinstability this may be limiting pts strength as her rental management trainee strength is same from 2021 - pt [...] please fell free to call me at [phone]. Thank you for the referral of this patient. Sincerely, Jerri Boyd, OTR/L, CHT <Electronically signed by Jerri Boyd OTR/L, CHT> 02/12/23 1348 CC: Dr. Chema Perry MD ~ [place] Signed [facility] Work Phone: 1(990) 538-746006-06-2023 Discharge summary Author Gunnar Graves [facility] January 21, 2023 2:08pm Note Date/Time January 21, 2023 2:08p [facility] Physical Therapy [facility] [address] [place] [address]. [address] [place] [address] / REHABILITATION SERVICES DISCHARGE SUMMARY MR#: [id number] Acct: [id number] Name: LAUREN ALCARAZ Rep #: [id number] : 1940 82 From: Gunnar Graves PT, ATC Referring Dr.: Dr. Chema Perry MD Status: REG RCR Insurance: MEDICARE PART A B [id number] [id number] It has been my pleasure to treat [...] please feel free to call me at [phone]. Thank you for the referral of thispatient. Sincerely, Gunnar Graves, PT, ATC Balance/Gait/Functional tests - Balance/Special Test Scores Lower Extremity Functional Score: 19 <Electronically signed by Gunnar Graves PT, ATC> 01/21/23 1408 CC: Dr. Chema Perry MD; Dr. Arun Ramos MD ~ [facility] Signed [facility] Work Phone: 1(296) 367-533704-19-2023 History of Present illness Narrative* Dina Jerry, [...] 04, 2022 2:15 PM [facility] Instructions* Patient Instructions* Laisha Lizarraga APRN.CNP [...] last scan in 2019 - can call [phone] or schedule at the [facility] desk 4. Please ambulate with caution! Follow up in about 3 months to recheck on things or sooner if tests are done earlier documented in this [facility]03-29-2023 Nurse Note* Lisbeth Rob - 11/13/2022 1:00 [...] Unknown) BMI 22.22 kg/m documented in this [facility]03-29-2023 History of Present illness Narrative* Laisha Lizarraga APRN.CNP - 11/13/2022 7:56 AM EDT Lauren Alcaraz 1940 [address] [facility] [address] November 13, 2022 [facility] [...] in the interim then transferredto a personal banking representative, and is not using a wheelchair today. She is using a Rollator today. Her goal is to walk unassisted. She has also been going to Cognitive/Speech therapy and feels it may be helping- someone down in the [place] area linked w/ her other therapies She [...] resources to help care for yourself? No auto rebuilder Has your caregiver accompanied you today? Yes [...] from 2007 DATE: June 15, 2008 NO: [id number] Indication: Question of seizure Medications: None given [...] last scan in 2019 - can call [phone] or schedule at the [facility] desk 4. Please ambulate with caution! Follow up in about 3 months to recheck on things or sooner if tests are done earlier I spent a total of 40 minutes on the date of service which included bbvt-qt-[id number] patient care and counseling and educating the patient/spouse. Laisha Lizarraga, MSN, CLIENT DELIVERY SPECIALIST-C, CNRN CC: 1. Chema Perry MD, (fax) [phone] documented in this [facility]Do[facility]03-[facility]-[address] Keith [facility] October 16, 2022 8:20pm Note Date/Time October 16, 2022 6:53 pm [facility] Medical Records Department [address] [place] [address] Emergency Department Summary 10/16/22 MR#: [id number] Acct: [id number] Name: LAUREN ALCARAZ Rep #: [id number] : 1940 82 From: Cal Keith MD PCP: Dr. Chema ePrry MD Status:REG ER Location: ED HPI History of Present Illness Chief Complaint: Upper Extremity Injury Narrative Narrative: 82-year-old female, essentially bqxtu-duhw-wsuggyve, presents with pain and swelling of her [...] movement. It is relieved by nothing. 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 Call [facility] ([phone]) or report to the closest Emergency Room. Call 911 if necessary. 10/16/222019 <Electronically signed by Cal Keith MD> Cosigner Signature (if applicable): CC: Dr. Ernesto Logan DO; Dr. Chema Perry MD; Dr. Shiraz Blanchard DO ~ Signed [facility] Work Phone: 1(993) 319-383612-29-2022 Discharge summary Author Gunnar Graves [facility] August 15, 2022 12:04pm Note Date/Time August 15, 2022 12:04pm [facility] Physical Therapy [facility] [address] [place] [address]. [address] [place] [address] / REHABILITATION SERVICES DISCHARGE SUMMARY MR#: [id number] Acct: [id number] Name: LAUREN ALCARAZ Rep #: [id number] : 1940 81 From: Gunnar Graves PT, ATC Referring Dr.: Dr. Arun Ramos MD Status: REG RCR Insurance: MEDICARE PART A B [id number] [id number] It has been my pleasure to treat [...] please feel free to call me at [phone]. Thank you for the referral of thispatient. Sincerely, Gunnar Graves, PT, ATC Balance/Gait/Functional tests - Balance/Special Test Scores Lower Extremity Functional Score: 41 <Electronically signed by Gunnar Graves PT, ATC> 08/15/22 1200 CC: Dr. Chema Perry MD; Dr. Arun Ramos MD ~ [facility] Signed [facility] Work Phone: 1(554) 281-806208-25-2022 Instructions* Patient Instructions* Laisha Lizarraga APRN.TAX ASSOCIATE ATTORNEY - 04/11/2022 1:39 PM EDT Let's consider having you try some Cognitive Therapy (cognitive-linguistic speech therapy) sessionsthat may help with some of the cognitive issues that you're still dealing with- may help with word-finding, mental calculation, and other things. The main scheduling number is [phone] and some of the therapists are below: Jeny Leonard, ASSOCIATE DEAN OF STUDENTS at [facility] - call [phone] Sydni Johnson, ASSOCIATE DEAN OF STUDENTS -- [facility], Desk C22 (appt [phone]) Kinza Handley, ASSOCIATE DEAN OF STUDENTS at [facility] ([phone]) Kenneth Mayorga (Tricia) at [facility] ([phone]) Sandra Goode at [facility] ([phone]) Ale Lopez, ASSOCIATE DEAN OF STUDENTS at [facility] ([phone]) Emily Ruvalcaba, ASSOCIATE DEAN OF STUDENTS at [facility] ([phone] ph; [phone] fax) Sydni Moreno, ASSOCIATE DEAN OF STUDENTS -- [facility] [place] ([phone]) Chata Patel, EUGENIO -- [facility] ([phone]) 2. I'd hold off on starting a medication like donepezil (Aricept) - I don't think this stands to help much 3 . try to keep the back pain under control however they recommend 4. Continue the cranberry supplement and watch for UTIs Follow up in about 6 months to recheck on things documented in this [facility] History of Present illness Narrative* Laisha Lizarraga APRN.ALBERT - 04/11/2022 1:00 PM EDT Lauren Alcaraz 1940 [address] [facility] [address] April 11, 2022 [facility] FOLLOW-UP NOTE Accompanied by: [...] since November- was previously staying at [facility] -- some gait-freezing noted from the in-home PT therapists No changes in plan of care were made at last visit Today, Lauren and her spouse Delroy return for a follow up visit She actually did have a fall at the end of February - they were going to see the opera in [place] and she got out of the car [...] from 2007 DATE: June 15, 2008 NO: [id number] Indication: Question of seizure Medications: None given [...] other things. The main scheduling number is [phone] and some of the therapists are below: Jeny Leonard, ASSOCIATE DEAN OF STUDENTS at [facility] - call [phone] Sydni Johnson, ASSOCIATE DEAN OF STUDENTS -- [facility], Desk C22 (appt [phone]) Kinza Handley, ASSOCIATE DEAN OF STUDENTS at [facility] ([phone]) Kenneth Reinoso) Tierra at [facility] ([phone]) Sandra Goode at [facility] ([phone]) Ale Lopez, ASSOCIATE DEAN OF STUDENTS at [facility] ([phone]) Emily Ruvalcaba, ASSOCIATE DEAN OF STUDENTS at [facility] ([phone] ph; [phone] fax) Sydni Moreno, ASSOCIATE DEAN OF STUDENTS -- [facility] ([phone]) Chata Patel, ASSOCIATE DEAN OF STUDENTS -- [facility] ([phone]) 2. I'd hold off on starting a [...] on the date of service which included svje-qf-wcnw patient care and counseling and educating the patient/spouse. Laisha Lizarraga, MSN, CLIENT DELIVERY SPECIALIST-C, CNRN documented in this encounterDoctors Hospital08-25-2022 Nurse Note* Layne Leon LPN - [...] Unknown) BMI 23.63 kg/m documented in this encounterDoctors Hospital06-08-2022 Instructions* Patient Instructions* Laisha Lizarraga APRN.ALBERT - 01/23/2022 11:30 AM EDT 1. Continue [...] to recheck on things documented in this encounterDoctors Hospital06-08-2022 History of Present illness Narrative* Mitchel Muse MD - 01/23/2022 11:13 AM EDT Lauren Alcaraz 1940 [address] [facility] [address] January 23, 2022 [facility] FOLLOW-UP NOTE [...] She had spent some time at [facility] and some of her medications were discontinued by her Chief Enterprise Architect Dr. Ramos. Today, Lauren and her spouse Delroy return for a routine follow up visit. She has been back home since mid-November - was previously staying at [facility]. Delroy reports that the Physical Therapists [...] Never Social History reviewed by Laisha Lizarraga APRN.TAX ASSOCIATE ATTORNEY PATIENT-ENTERED DATA Patient-Reported 01/17/2022 11/07/2021 Where are you currently living? Home / Private residence retirement / intermediate facility Are you using any [...] from 2007 DATE: June 15, 2008 NO: [id number] Indication: Question of seizure Medications: None given [...] on the date of service which included kyyq-so-qonu patient care and counseling and educating the patient/spouse. Dr. Muse was present for this visit and is in agreement with the plan stated above. He did perform the neurological exam. Laisha Lizarraga, MSN, CLIENT DELIVERY SPECIALIST-C, CNRN History, previous evaluations and examination reviewed [...] which included preparing to see the patient, obye-wh-meeh patient care, completing clinical documentation, obtaining and/or reviewing separately obtained history, performing a medically appropriate examination, counseling and educating the pat ient/family/caregiver and ordering medications, tests, or procedures. documented in this encounterDoctors Hospital06-08-2022 Nurse Note* Layne Leon LPN - [...] Unknown) BMI 24.04 kg/m documented in this encounterDoctors Hospital03-29-2022 Instructions* Patient Instructions* Laisha Lizarraga APRN.CNP [...] Dr. Muse in January documented in this encounterDoctors Hospital03-29-2022 History of Present illness Narrative* Laisha Lizarraga APRN.CNP - 11/13/2021 11:30 AM EDT Lauren Alcaraz 1940 [address] [facility] [address] November 13, 2021 [facility] [...] out of bed in the middle of th night-- and from that point onwards pt has been not doing well reports . Resulting in persistent back pain, shortly after pt fell again in the bathroom and hit her chest and subsequently hospitalized and transferred to transitional care [place] where she contracted Covid-19, she remained at that care facility for approximately one month.. Upon leaving transitional care, pt was returned to hospital d/t spouses inability to care at the level required, pt transferred to [facility] [place] where she currently has been since. Pt [...] Never Social History reviewed by Laisha Lizarraga APRN.TAX ASSOCIATE ATTORNEY PATIENT-ENTERED DATA Patient-Reported 11/07/2021 10/04/2021 Where are you currently living? retirement / intermediate facility Home / Private residence Are you using any community resources to help care for yourself? No auto rebuilder Has your caregiver accompanied you today? Yes [...] 02/14 Visuospatial/Executive: 0/5 Namin/3 Attention: 08/23 Language: 1/3 Abstraction: 0/2 Delayed Recall: 08/22 Orientation: 08/23 [...] from 2007 DATE: June 15, 2008 NO: [id number] Indication: Question of seizure Medications: None given [...] on the date of service which included ddeh-kk-ggxj patient care and counseling and educating the patient/spouse. This note was generated with the assistance of Isma Torres, ALBERT Student. I was present for the entirety of the visit and participated in the interview and formulation of plan. Laisha Lizarraga, OSORIO, CLIENT DELIVERY SPECIALIST-C, CNRN documented in this encounterDoctors Hospital03-29-2022 Nurse Note* Layne Leon LPN - [...] Unknown) BMI 25.04 kg/m documented [facility] complaint+Reason for visit Narrative* Chief Complaint ELBOW 4 M FU COVID EXPOSURE/WANTS TEST COVID-19 INT LABS LEFT KNEE PAIN XRAY LLE PAIN STAT 6 M FU knee Pain 6 m fu LEFT BREAST MASS LUMP IN L BREAST XRAY POST FALL/BACK PAIN/SWELLING XRAY CONGITIVE COMM,BALANCE,WEAKNESS RX HERE 6 M FU Reason for Visit 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 without angina pectoris Debility Essential [...] Restless leg syndrome 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 Essential hypertension Lightheadedness Hyperlipidemia Mass of upper inner quadrant of left breast Contusion of thoracic wall Lumbar contusion 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 Cancer Essential hypertension Hyperlipidemia Hypothyroidism Mass of upper inner quadrant of left breast Presence of stent in coronary artery Right inguinal hernia Vitamin B 12 deficiency Gastroesophageal reflux disease ERIS (obstructive sleep apnea) Restless leg syndrome [facility] Work Phone: [place] complaint+Reason for visit Narrative* Chief Complaint ELBOW 4 M FU COVID EXPOSURE/WANTS TEST COVID-19 INT LABS LEFT KNEE PAIN XRAY LLE PAIN STAT 6 M FU knee Pain 6 m fu LEFT BREAST MASS LUMP IN L BREAST XRAY POST FALL/BACK PAIN/SWELLING XRAY CONGITIVE COMM,BALANCE,WEAKNESS RX HERE 6 M FU CONGITIVE COMM,BALANCE,WEAKNESS RX HERE ERIS Reason for Visit 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 without angina pectoris Debility Essential [...] Restless leg syndrome 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 Essential hypertension Lightheadedness Hyperlipidemia Mass of upper inner quadrant of left breast Contusion of thoracic wall Lumbar contusion 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 Cancer Essential hypertension Hyperlipidemia Hypothyroidism Mass of upper inner quadrant of left breast Presence of stent in coronary artery Right inguinal hernia Vitamin B 12 deficiency Gastroesophageal reflux disease ERIS (obstructive sleep apnea) Restless leg syndrome [facility] Work Phone: Chief complaint+Reason for visit Narrative* [...] Restless leg syndrome 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 Essential hypertension Lightheadedness Hyperlipidemia Mass of upper inner quadrant of left breast Contusion of thoracic wall Lumbar contusion 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 Cancer Essential hypertension Hyperlipidemia Hypothyroidism Mass of upper inner quadrant of left breast Presence of stent in coronary artery Right inguinal hernia Vitamin B 12 deficiency Gastroesophageal reflux disease ERIS (obstructive sleep apnea) Restless leg syndrome Sternal deformity [facility] Work Phone: Consult note Author Damien Burleson [facility] Note Date/Time February 06, 2025 10:5 2am [facility] System Medical Records Department [address] [place] [address] Consultation - Orthopedics 02/06/25 1040 MR#: [id number] Acct: [id number] Name: LAUREN ALCARAZ Rep #: [id number] : 1940 84 From: Damien Burleson MD PCP: Dr. Chema Perry MD Status:REG ER Location: ED HPI Consult Data Date of Consult: 02/06/25 HPI Narrative HPI Narrative: LAUREN ALCARAZ, is a 84 F who presents with failure to cope and pain related toa distal clavicle fracture. 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 Reading Location: [facility] Humerus X-Ray 02/06/25 07:53 IMPRESSION: NO ACUTE FRACTURE OR DISLOCATION. Reading Location: [facility] Assessment & Plan Assessment/Plan (1) Closed [...] the CC ligaments most likely would create exterminator pain and disability. That being said, surgery [...] days. 02/06/25 1052 <Electronically signed by Damien uBrleson MD> Cosigner Signature (if applicable): CC: Dr. Chema Perry MD~ Signed [facility] Work Phone: Discharge summary Author Isma Bustamante [facility] Note Date/Time February 03, 2025 7:58 am [facility] System Medical Records Department [address] [place] [address] Emergency Department Summary 02/03/25 MR#: [id number] Acct: [id number] Name: LAUREN ALCARAZ Rep #: [id number] : 1940 84 From: Isma Bustamante DO PCP: Dr. Chema Perry MD Status:REG ER Location: ED HPI History of Present Illness Chief Complaint: Upper Extremity Injury Informant: patient and spouse/S.O. Narrative Narrative: Patient is a 84-year-old female with past medical history of hypertension hyperlipidemia hypothyroidism and previous DVT currently on Eliquis. She statesalek is a night owl and she was [...] in for evaluation. 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 Reading Location: [place] [address] X-ray of the right shoulder as interpreted by the emergency medicine physician reveals a fracture to the distal aspect of the right clavicle with cranial displacement. No obvious joint effusion or shoulder dislocation Discharge Plan Triage Chief Complaint: Upper Extremity Injury ED Provider: Isma Bustamante Dx/Rx/DC Orders Clinical Impression: Closed fracture of right clavicle, Essential hypertension, Hyperlipidemia, Hypothyroidism, Current use of exterminator anticoagulation Instructions: ED Fracture, Clavicle Prescriptions: New [...] .MEDSUPPLY Rx Instructions: Bd SYR/leticia Eclipse 3ml #5725 BD Sry/needle eclips See Rx Instructions IM .COMPLEX Qty: 12 0RF Rx Instructions: intramuscularly; 3ml #8778 uses 1 a month (DME) PEP device [...] Rx Instructions: Can be administered at [facility] Prolia 60 mg/mL syringe 60 mg subcut [id number] Qty: 1 5RF Primary Care Provider: Chema [...] you have any further concerns Print Language: Citizen Of [place] Disposition Disposition: Home, Self Care What to do if you have Problems For any increased pain, shortness of breath, bleeding, nausea or vomiting, chestpain, or any unexpected problems, contact your Primary Care Provider. Call [facility] ([phone]) or report to the closest Emergency Room. Call 911 if necessary. 02/03/25 0755 <Electronically signed by Isma Bustamante DO> Cosigner Signature (if applicable): CC: Dr. Chema Perry MD ~ Signed [facility] Work Phone: Evaluation note* Diagnosis Dementia without behavioral disturbance, unspecified dementia type (HCC)- Primary History of complex partial epilepsy Personal history of other disorders of nervous system and sense organs Gait instability Abnormality of gait Multiple falls Personal history of fall Depression, unspecified depression type Anxiety Anxiety state, unspecified Physical deconditioning Debility, unspecified [facility] Diagnosis Onset Date Resolution Status [...] ERIS (obstructive sleep apnea) chronic COVID-19 resolved [facility] Work Phone: Evaluation note* Diagnosis Dementia without behavioral disturbance, unspecified dementia type (HCC)- Primary History of complex partial epilepsy Personal history of other disorders of nervous system and sense organs Gait instability Abnormality of gait Multiple falls Personal history of fall Depression, unspecified depression type Anxiety Anxiety state, unspecified Physical deconditioning Debility, unspecified [facility] Diagnosis Onset Date Resolution Status Bronchiectasis acute Hiatal hernia acute ERIS (obstructive sleep apnea) chronic COVID-19 resolved Bronchiectasis acute Shortness of breath on exertion acute COVID-19 resolved [facility] Work Phone: Evaluation note* Diagnosis Onset Date Resolution Status Bronchiectasis acute Shortness of breath on exertion acute COVID-19 resolved [facility] Work Phone: Evaluation note* Diagnosis Dementia without behavioral disturbance, unspecified dementia type (HCC)- Primary History of complex partial epilepsy Personal history of other disorders of nervous system and sense organs Gait instability Abnormality of gait Multiple falls Personal history of fall Physical deconditioning Debility, unspecified Cognitive communication deficit [facility] Diagnosis Onset Date Resolution Status Debility acute Falls frequently acute Hyperlipidemia acute Hypothyroidism acute Overactive bladder acute Gastroesophageal reflux disease chronic ERIS (obstructive sleep apnea) chronic Seizure disorder chronic Encounter to establish care noneactive Bronchiectasis acute Hypoxemia acute ERIS (obstructive sleep apnea) chronic Intermittent constipation ac [place] Leg edema, left acute Varicose veins of both legs with edema acute Debility acute Lightheadedness acute Overactive bladder acute 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 Essential hypertension acute Presence of stent in coronary artery acute Hyperlipidemia chronic Bronchiectasis acute Hypoxemia acute Abdominal wall hernia acute Essential hypertension acute Restless leg syndrome chroni c Seizure disorder chronic Acute bronchitis acute [facility] Work Phone: Evaluation note* Diagnosis Onset Date Resolution Status Bronchiectasis acute Hypoxemia acute ERIS (obstructive sleep apnea) chronic Intermittent constipation ac [place] Leg edema, left acute Varicose veins of both legs with edema acute Debility acute Lightheadedness acute Overactive bladder acute 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 Essential hypertension acute Presence of stent in coronary artery acute Hyperlipidemia chronic Bronchiectasis acute Hypoxemia acute Abdominal wall hernia acute Essential hypertension acute Restless leg syndrome chroni c Seizure disorder chronic Acute bronchitis acute [facility] Work Phone: Evaluation note* Diagnosis Onset Date Resolution Status Intermittent constipation ac [place] Leg edema, left acute Varicose veins of both legs with edema acute Debility acute Lightheadedness acute Overactive bladder acute 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 Essential hypertension acute Presence of stent in coronary artery acute Hyperlipidemia chronic Bronchiectasis acute Hypoxemia acute Abdominal wall hernia acute Essential hypertension acute Restless leg syndrome chroni c Seizure disorder chronic Acute bronchitis acute Right inguinal hernia acute Fall (on)(from) incline, subsequent encounter acute Visit for suture removal acu te [facility] Work Phone: Evaluation note* Diagnosis Onset Date Resolution Status 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 Essential hypertension acute Presence of stent in coronary artery acute Hyperlipidemia chronic Bronchiectasis acute Hypoxemia acute Abdominal wall hernia acute Essential hypertension acute Restless leg syndrome chroni c Seizure disorder chronic Acute bronchitis acute Right inguinal hernia acute Fall (on)(from) incline, subsequent encounter acute Visit for suture removal acu [facility] Work Phone: Evaluation note* Diagnosis Onset Date Resolution Status 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 Essential [...] Left elbow contusion acute Scalp contusion acute [facility] Work Phone: Evaluation note* Diagnosis Onset [...] Left elbow contusion acute Scalp contusion acute [facility] Work Phone: Evaluation note* Diagnosis Dementia without [...] Abnormality of gait [facility] Diagnosis Onset Date Resolution Status Contusion of left shoulder a cute Contusion of left wrist acut e Left elbow contusion acute Scalp contusion acute 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 Debility acute Essential hypertension acute Falls frequently acute Hyperlipidemia acute Hypothyroidism acute Lightheadedness acute Overactive bladder acute Seizure disorder acute Vascular dementia acute Vitamin B 12 deficiency acut e Vitamin D deficiency resolve d Contact with and (suspected) exposure to other viral communicable diseases acute [facility] Work Phone: Evaluation note* Diagnosis Onset Date Resolution Status Contusion of left shoulder a cute Contusion of left wrist acut e Left elbow contusion acute Scalp contusion acute 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 Debility [...] chroni c 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 Essential hypertension acute Lightheadedness acute Hyperlipidemia chronic Mass of upper inner quadrant of left breast acute [facility] Work Phone: Evaluation note* Diagnosis Onset Date Resolution Status 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 Debility [...] chroni c 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 Essential hypertension acute Lightheadedness acute Hyperlipidemia chronic Mass of upper inner quadrant of left breast acute Contusion of thoracic wall a cute Lumbar contusion acute 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 Cancer acute Essential hypertension acute Hyperlipidemia acute Hypothyroidism acute Mass of upper inner quadrant of left breast acute Presence of stent in coronary artery acute Right inguinal hernia acute Vitamin B 12 deficiency acut e Gastroesophageal reflux disease chronic ERIS (obstructive sleep apnea) chronic Restless leg syndrome chroni c [facility] Work Phone: Evaluation note* Diagnosis 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, psychotic disturbance, mood disturbance, or anxiety (HCC) [facility] Diagnosis Onset Date Resolution Status 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 Essential hypertension acute Lightheadedness acute Hyperlipidemia chronic Mass of upper inner quadrant of left breast acute Contusion of thoracic wall a cute Lumbar contusion acute 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 Cancer [...] acute Bee sting acute Bronchiectasis acute Hypoxemia [facility] Work Phone: Evaluation note* Diagnosis Onset Date Resolution Status Sternal deformity acute Bee sting acute Bronchiectasis acute Hypoxemia chronic 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 ALEXANDER (dyspnea on exertion) [place] Hyperlipidemia [facility] Work Phone: Evaluation note* Diagnosis Mild [...] influencing health status [facility] Diagnosis Onset Date Resolution Status Bee sting acute Bronchiectasis acute Hypoxemia chronic 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 ALEXANDER (dyspnea on exertion) [place] Hyperlipidemia [facility] Work Phone: Evaluation note* Diagnosis 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, psychotic disturbance, mood disturbance, or anxiety (HCC)- Primary History of complex partial epilepsy Personal history of other disorders of nervous system and sense organs Physical deconditioning Debility, unspecified Gait instability Abnormality of gait Fine motor impairment Other specified conditions influencing health status [facility] Diagnosis Onset Date Resolution Status 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 Debility acute Essential hypertension acute Falls frequently acute Hiatal hernia acute Hyperlipidemia acute Restless leg syndrome acute Right inguinal hernia acute Vascular dementia acute Difficulty swallowing chroni c Hiatal hernia acute Mass of upper inner quadrant of left breast acute Sternal deformity acute Osteoporosis chronic Bronchiectasis acute Hypoxemia [facility] Work Phone: Evaluation note* Diagnosis Primary open angle glaucoma (POAG) of both eyes, severe stage- Primary [facility] Diagnosis Onset Date Resolution Status 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 Debility acute Essential hypertension acute Falls frequently acute Hiatal hernia acute Hyperlipidemia acute Restless leg syndrome acute Right inguinal hernia acute Vascular dementia acute Difficulty swallowing chroni c Hiatal hernia acute Mass of upper inner quadrant of left breast acute Sternal deformity acute Osteoporosis chronic Bronchiectasis acute Hypoxemia chronic 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 Dizziness acute Hyperlipidemia [facility] Work Phone: Evaluation note* Diagnosis Onset Date Resolution Status Hiatal hernia acute Mass of upper inner quadrant of left breast acute Sternal deformity acute Osteoporosis chronic Bronchiectasis acute Hypoxemia chronic 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 Dizziness acute Hyperlipidemia [facility] Work Phone: Evaluation note* Diagnosis 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, psychotic disturbance, mood disturbance, or anxiety (HCC) [facility]* Diagnosis 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, psychotic disturbance, mood disturbance, or anxiety (HCC) [facility]* Diagnosis 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, psychotic disturbance, mood disturbance, or anxiety (HCC)- Primary Physical deconditioning Debility, unspecified Gait instability Abnormality of gait Fine motor impairment Other specified conditions influencing health status Dizziness Dizziness and giddiness Depression, unspecified depression type 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) (postural) [facility]* Diagnosis Primary open angle glaucoma (POAG) of both eyes, severe stage [facility] Diagnosis Dementia without behavioral disturbance (HCC) Dementia, unspecified, without behavioral disturbance [facility] Diagnosis Hiatal hernia- Primary Diaphragmatic hernia without mention of obstruction or gangrene Gastroesophageal reflux disease, unspecified whether esophagitis present documented in this encounter [facility] note* Diagnosis H/O acute myocardial infarction- Primary Old myocardial infarction Cardiomyopathy, unspecified type ([facility]) Pre-op evaluation Preoperative examination, unspecified Encounter to establish care Other reasons for seeking consultation documented in this encounter [facility] note* Diagnosis Hiatal hernia- Primary Diaphragmatic hernia without mention of obstruction or gangrene documented in this encounter [facility] note* Diagnosis Hiatal hernia Diaphragmatic hernia without mention of obstruction or gangrene documented in this encounter [facility] note* Diagnosis 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, psychotic disturbance, mood disturbance, or anxiety (HCC)- Primary Physical deconditioning Debility, unspecified Gait instability Abnormality of gait Fine motor impairment Other specified conditions influencing health status Dizziness Dizziness and giddiness Idiopathic scoliosis and kyphoscoliosis Scoliosis (and kyphoscoliosis), idiopathic Multiple falls Personal history of fall Paresthesia of both feet documented in this encounter [facility] note* Diagnosis Pre-operative examination- Primary Preoperative examination, unspecified Dementia without behavioral disturbance (HCC) Dementia, unspecified, without behavioral disturbance MS (multiple sclerosis) (HCC) Multiple sclerosis History of complex partial epilepsy Personal history of other disorders of nervous system and sense organs Restless legs syndrome Restless legs syndrome (RLS) Atherosclerosis of [place]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) Essential hypertension [...] Assessment & Plan Note - Willa Torres APRN.[employer] - 07/20/2024 1:07 PM EST Associated Problem(s): [...] Note - Willa Torres APRN.ALBERT - 07/19/2024 4:02 PM EST Associated Problem(s): [...] AD biomarkers negative [facility]* Diagnosis Pre-operative examination- Primary Preoperative examination, unspecified Dementia without behavioral disturbance (HCC) Dementia, unspecified, without behavioral disturbance MS (multiple sclerosis) (HCC) Multiple sclerosis History of complex partial epilepsy Personal history of other disorders of nervous system and sense organs Restless legs syndrome Restless legs syndrome (RLS) Atherosclerosis of [place]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) Essential hypertension [...] obstruction or gangrene documented in this encounter [facility] note* Diagnosis Pre-operative examination- Primary Preoperative examination, unspecified Dementia without behavioral disturbance (HCC) Dementia, unspecified, without behavioral disturbance MS (multiple sclerosis) (HCC) Multiple sclerosis History of complex partial epilepsy Personal history of other disorders of nervous system and sense organs Restless legs syndrome Restless legs syndrome (RLS) Atherosclerosis of [place]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) Essential hypertension [...] eyes, severe stage [facility] Diagnosis Pre-operative examination- Primary Preoperative examination, unspecified Dementia without behavioral disturbance (HCC) Dementia, unspecified, without behavioral disturbance MS (multiple sclerosis) (HCC) Multiple sclerosis History of complex partial epilepsy Personal history of other disorders of nervous system and sense organs Restless legs syndrome Restless legs syndrome (RLS) Atherosclerosis of [place]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) Essential hypertension [...] unspecified type (HCC) [facility] Diagnosis Pre-operative examination- Primary Preoperative examination, unspecified Dementia without behavioral disturbance (HCC) Dementia, unspecified, without behavioral disturbance MS (multiple sclerosis) (HCC) Multiple sclerosis History of complex partial epilepsy Personal history of other disorders of nervous system and sense organs Restless legs syndrome Restless legs syndrome (RLS) Atherosclerosis of [place]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) Essential hypertension [...] history of fall [facility] Diagnosis Pre-operative examination- Primary Preoperative examination, unspecified Dementia without behavioral disturbance (HCC) Dementia, unspecified, without behavioral disturbance MS (multiple sclerosis) (HCC) Multiple sclerosis History of complex partial epilepsy Personal history of other disorders of nervous system and sense organs Restless legs syndrome Restless legs syndrome (RLS) Atherosclerosis of [place]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) Essential hypertension [...] Preoperative examination, unspecified [facility] Diagnosis Pre-operative examination- Primary Preoperative examination, unspecified Dementia without behavioral disturbance (HCC) Dementia, unspecified, without behavioral disturbance MS (multiple sclerosis) (HCC) Multiple sclerosis History of complex partial epilepsy Personal history of other disorders of nervous system and sense organs Restless legs syndrome Restless legs syndrome (RLS) Atherosclerosis of [place]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) Essential hypertension [...] Preoperative examination, unspecified [facility] Diagnosis Pre-operative examination- Primary Preoperative examination, unspecified Dementia without behavioral disturbance (HCC) Dementia, unspecified, without behavioral disturbance MS (multiple sclerosis) (HCC) Multiple sclerosis History of complex partial epilepsy Personal history of other disorders of nervous system and sense organs Restless legs syndrome Restless legs syndrome (RLS) Atherosclerosis of [place]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) Essential hypertension [...] Preoperative examination, unspecified [facility] Diagnosis Pre-operative examination- Primary Preoperative examination, unspecified Dementia without behavioral disturbance (HCC) Dementia, unspecified, without behavioral disturbance MS (multiple sclerosis) (HCC) Multiple sclerosis History of complex partial epilepsy Personal history of other disorders of nervous system and sense organs Restless legs syndrome Restless legs syndrome (RLS) Atherosclerosis of [place]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) Essential hypertension [...] Preoperative examination, unspecified [facility] Diagnosis Pre-operative examination- Primary Preoperative examination, unspecified Dementia without behavioral disturbance (HCC) Dementia, unspecified, without behavioral disturbance MS (multiple sclerosis) (HCC) Multiple sclerosis History of complex partial epilepsy Personal history of other disorders of nervous system and sense organs Restless legs syndrome Restless legs syndrome (RLS) Atherosclerosis of [place]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) Essential hypertension [...] Preoperative examination, unspecified [facility] Diagnosis Pre-operative examination- Primary Preoperative examination, unspecified Dementia without behavioral disturbance (HCC) Dementia, unspecified, without behavioral disturbance MS (multiple sclerosis) (HCC) Multiple sclerosis History of complex partial epilepsy Personal history of other disorders of nervous system and sense organs Restless legs syndrome Restless legs syndrome (RLS) Atherosclerosis of [place]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) Essential hypertension [...] Preoperative examination, unspecified [facility] Diagnosis Pre-operative examination- Primary Preoperative examination, unspecified Dementia without behavioral disturbance (HCC) Dementia, unspecified, without behavioral disturbance MS (multiple sclerosis) (HCC) Multiple sclerosis History of complex partial epilepsy Personal history of other disorders of nervous system and sense organs Restless legs syndrome Restless legs syndrome (RLS) Atherosclerosis of [place]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) Essential hypertension [...] Preoperative examination, unspecified [facility] Diagnosis Pre-operative examination- Primary Preoperative examination, unspecified Dementia without behavioral disturbance (HCC) Dementia, unspecified, without behavioral disturbance MS (multiple sclerosis) (HCC) Multiple sclerosis History of complex partial epilepsy Personal history of other disorders of nervous system and sense organs Restless legs syndrome Restless legs syndrome (RLS) Atherosclerosis of [place]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) Essential hypertension [...] chronicity, unspecified whether acute cor pulmonale present ([facility]) Preoperative examination- Primary Preoperative examination, unspecified Coronary [...] per Dr. Marcial. [facility] Diagnosis Pre-operative examination- Primary Preoperative examination, unspecified Dementia without behavioral disturbance (HCC) Dementia, unspecified, without behavioral disturbance MS (multiple sclerosis) (HCC) Multiple sclerosis History of complex partial epilepsy Personal history of other disorders of nervous system and sense organs Restless legs syndrome Restless legs syndrome (RLS) Atherosclerosis of [place]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) Essential hypertension [...] chronic pain- Primary [facility] Diagnosis Pre-operative examination- Primary Preoperative examination, unspecified Dementia without behavioral disturbance (HCC) Dementia, unspecified, without behavioral disturbance MS (multiple sclerosis) (HCC) Multiple sclerosis History of complex partial epilepsy Personal history of other disorders of nervous system and sense organs Restless legs syndrome Restless legs syndrome (RLS) Atherosclerosis of [place]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) Essential hypertension [...] other specified site [facility] Diagnosis Pre-operative examination- Primary Preoperative examination, unspecified Dementia without behavioral disturbance (HCC) Dementia, unspecified, without behavioral disturbance MS (multiple sclerosis) (HCC) Multiple sclerosis History of complex partial epilepsy Personal history of other disorders of nervous system and sense organs Restless legs syndrome Restless legs syndrome (RLS) Atherosclerosis of [place]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) Essential hypertension [...] chronicity, unspecified whether acute cor pulmonale present ([facility]) Preoperative examination- Primary Preoperative examination, unspecified Coronary [...] disturbance, psychotic disturbance, mood disturbance, or anxiety ([facility])- Primary Physical deconditioning Debility, unspecified Gait instability Abnormality of gait Fine motor impairment Other specified conditions influencing health status Dizziness Dizziness and giddiness Idiopathic scoliosis and kyphoscoliosis Scoliosis (and kyphoscoliosis), idiopathic Depression, unspecified depression type 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) (postural) Restless legs syndrome Restless legs syndrome (RLS) Other chronic pain Paresthesia of both feet [facility] Diagnosis Pre-operative examination- Primary Preoperative examination, unspecified Dementia without behavioral disturbance (HCC) Dementia, unspecified, without behavioral disturbance MS (multiple sclerosis) (HCC) Multiple sclerosis History of complex partial epilepsy Personal history of other disorders of nervous system and sense organs Restless legs syndrome Restless legs syndrome (RLS) Atherosclerosis of upper [place]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) Essential hypertension [...] malaise and fatigue [facility] Diagnosis Pre-operative examination- Primary Preoperative examination, unspecified Dementia without behavioral disturbance (HCC) Dementia, unspecified, without behavioral disturbance MS (multiple sclerosis) (HCC) Multiple sclerosis History of complex partial epilepsy Personal history of other disorders of nervous system and sense organs Restless legs syndrome Restless legs syndrome (RLS) Atherosclerosis of [place]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) Essential hypertension [...] Other postprocedural status [facility] Diagnosis Pre-operative examination- Primary Preoperative examination, unspecified Dementia without behavioral disturbance (HCC) Dementia, unspecified, without behavioral disturbance MS (multiple sclerosis) (HCC) Multiple sclerosis History of complex partial epilepsy Personal history of other disorders of nervous system and sense organs Restless legs syndrome Restless legs syndrome (RLS) Atherosclerosis of [place]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) Essential hypertension [...] eyes, severe stage [facility] Diagnosis Pre-operative examination- Primary Preoperative examination, unspecified Dementia without behavioral disturbance (HCC) Dementia, unspecified, without behavioral disturbance MS (multiple sclerosis) (HCC) Multiple sclerosis History of complex partial epilepsy Personal history of other disorders of nervous system and sense organs Restless legs syndrome Restless legs syndrome (RLS) Atherosclerosis of [place]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) Essential hypertension [...] Abdominal pain, generalized [facility] Diagnosis Pre-operative examination- Primary Preoperative examination, unspecified Dementia without behavioral disturbance (HCC) Dementia, unspecified, without behavioral disturbance MS (multiple sclerosis) (HCC) Multiple sclerosis History of complex partial epilepsy Personal history of other disorders of nervous system and sense organs Restless legs syndrome Restless legs syndrome (RLS) Atherosclerosis of [place]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) Essential hypertension [...] of ulnar nerve [facility] Diagnosis Pre-operative examination- Primary Preoperative examination, unspecified Dementia without behavioral disturbance (HCC) Dementia, unspecified, without behavioral disturbance MS (multiple sclerosis) (HCC) Multiple sclerosis History of complex partial epilepsy Personal history of other disorders of nervous system and sense organs Restless legs syndrome Restless legs syndrome (RLS) Atherosclerosis of [place]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) Essential hypertension [...] malaise and fatigue [facility] Diagnosis Pre-operative examination- Primary Preoperative examination, unspecified Dementia without behavioral disturbance (HCC) Dementia, unspecified, without behavioral disturbance MS (multiple sclerosis) (HCC) Multiple sclerosis History of complex partial epilepsy Personal history of other disorders of nervous system and sense organs Restless legs syndrome Restless legs syndrome (RLS) Atherosclerosis of [place] coronary artery of [place] heart with angina pectoris Essential hypertension Unspecified [...] Nausea Nausea alone [facility] Diagnosis Pre-operative examination- Primary Preoperative examination, unspecified Dementia without behavioral disturbance (HCC) Dementia, unspecified, without behavioral disturbance MS (multiple sclerosis) (HCC) Multiple sclerosis History of complex partial epilepsy Personal history of other disorders of nervous system and sense organs Restless legs syndrome Restless legs syndrome (RLS) Atherosclerosis of [place] coronary artery of [place] heart with angina pectoris Essential hypertension Unspecified [...] malaise and fatigue [facility] Diagnosis Pre-operative examination- Primary Preoperative examination, unspecified Dementia without behavioral disturbance (HCC) Dementia, unspecified, without behavioral disturbance MS (multiple sclerosis) (HCC) Multiple sclerosis History of complex partial epilepsy Personal history of other disorders of nervous system and sense organs Restless legs syndrome Restless legs syndrome (RLS) Atherosclerosis of [place] coronary artery of [place] heart with angina pectoris Essential hypertension Unspecified [...] Diarrhea, unspecified type [facility] Diagnosis Pre-operative examination- Primary Preoperative examination, unspecified Dementia without behavioral disturbance (HCC) Dementia, unspecified, without behavioral disturbance MS (multiple sclerosis) (HCC) Multiple sclerosis History of complex partial epilepsy Personal history of other disorders of nervous system and sense organs Restless legs syndrome Restless legs syndrome (RLS) Atherosclerosis of [place] coronary artery of [place] heart with angina pectoris Essential hypertension Unspecified [...] of biliary tract [facility] Diagnosis Pre-operative examination- Primary Preoperative examination, unspecified Dementia without behavioral disturbance (HCC) Dementia, unspecified, without behavioral disturbance MS (multiple sclerosis) (HCC) Multiple sclerosis History of complex partial epilepsy Personal history of other disorders of nervous system and sense organs Restless legs syndrome Restless legs syndrome (RLS) Atherosclerosis of [place] coronary artery of [place] heart with angina pectoris Essential hypertension Unspecified [...] Lack of coordination [facility] Diagnosis Pre-operative examination- Primary Preoperative examination, unspecified Dementia without behavioral disturbance (HCC) Dementia, unspecified, without behavioral disturbance MS (multiple sclerosis) (HCC) Multiple sclerosis History of complex partial epilepsy Personal history of other disorders of nervous system and sense organs Restless legs syndrome Restless legs syndrome (RLS) Atherosclerosis of [place] coronary artery of [place] heart with angina pectoris Essential hypertension Unspecified [...] daily living (ADL) [facility] Diagnosis Pre-operative examination- Primary Preoperative examination, unspecified Dementia without behavioral disturbance (HCC) Dementia, unspecified, without behavioral disturbance MS (multiple sclerosis) (HCC) Multiple sclerosis History of complex partial epilepsy Personal history of other disorders of nervous system and sense organs Restless legs syndrome Restless legs syndrome (RLS) Atherosclerosis of [place] coronary artery of [place] heart with angina pectoris Essential hypertension Unspecified [...] obstruction or gangrene [facility] Diagnosis Pre-operative examination- Primary Preoperative examination, unspecified Dementia without behavioral disturbance (HCC) Dementia, unspecified, without behavioral disturbance MS (multiple sclerosis) (HCC) Multiple sclerosis History of complex partial epilepsy Personal history of other disorders of nervous system and sense organs Restless legs syndrome Restless legs syndrome (RLS) Atherosclerosis of [place] coronary artery of [place] heart with angina pectoris Essential hypertension Unspecified [...] chronicity, unspecified whether acute cor pulmonale present ([facility]) Preoperative examination- Primary Preoperative examination, unspecified Coronary [...] initial encounter- Primary [facility] Pre-operative examination- Primary Preoperative examination, unspecified Dementia without behavioral disturbance (HCC) Dementia, unspecified, without behavioral disturbance MS (multiple sclerosis) (HCC) Multiple sclerosis History of complex partial epilepsy Personal history of other disorders of nervous system and sense organs Restless legs syndrome Restless legs syndrome (RLS) Atherosclerosis of [place] coronary artery of [place] heart with angina pectoris Essential hypertension Unspecified [...] Abnormality of gait [facility] Diagnosis Pre-operative examination- Primary Preoperative examination, unspecified Dementia without behavioral disturbance (HCC) Dementia, unspecified, without behavioral disturbance MS (multiple sclerosis) (HCC) Multiple sclerosis History of complex partial epilepsy Personal history of other disorders of nervous system and sense organs Restless legs syndrome Restless legs syndrome (RLS) Atherosclerosis of [place] coronary artery of [place] heart with angina pectoris Essential hypertension Unspecified [...] syndrome (RLS) [facility] Diagnosis Pre-operative examination- Primary Preoperative examination, unspecified Dementia without behavioral disturbance (HCC) Dementia, unspecified, without behavioral disturbance MS (multiple sclerosis) (HCC) Multiple sclerosis History of complex partial epilepsy Personal history of other disorders of nervous system and sense organs Restless legs syndrome Restless legs syndrome (RLS) Atherosclerosis of [place] coronary artery of [place] heart with angina pectoris Essential hypertension Unspecified [...] disturbance, mood disturbance, or anxiety (HCC)- Primary Episode of shaking Abnormal involuntary movements History of seizures Personal history of other disorders of nervous system and sense organs Fluctuating mental status Ptosis of right eyelid Unspecified ptosis of eyelid Dementia without behavioral disturbance (HCC) Dementia, unspecified, without behavioral disturbance [facility] Diagnosis Pre-operative examination- Primary Preoperative examination, unspecified Dementia without behavioral disturbance (HCC) Dementia, unspecified, without behavioral disturbance MS (multiple sclerosis) (HCC) Multiple sclerosis History of complex partial epilepsy Personal history of other disorders of nervous system and sense organs Restless legs syndrome Restless legs syndrome (RLS) Atherosclerosis of [place] coronary artery of [place] heart with angina pectoris Essential hypertension Unspecified [...] psychotic disturbance, mood disturbance, or anxiety (HCC) Fluctuating mental status Ptosis of right eyelid Unspecified ptosis of eyelid [facility] Diagnosis Pre-operative examination- Primary Preoperative examination, unspecified Dementia without behavioral disturbance (HCC) Dementia, unspecified, without behavioral disturbance MS (multiple sclerosis) (HCC) Multiple sclerosis History of complex partial epilepsy Personal history of other disorders of nervous system and sense organs Restless legs syndrome Restless legs syndrome (RLS) Atherosclerosis of [place] coronary artery of [place] heart with angina pectoris Essential hypertension Unspecified [...] without residual deficits Depression, unspecified depression type Laceration of left lower leg, initial encounter- Primary [facility] Additional Instructions 5 sutures were placed in your scalp to stop the bleeding from the laceration. The sutures will need to be removed in 10 to 14 days. Please see your family doctor or return to the ER for suture removal. Please return for repeat evaluation if he have any further concerns [facility] Work Phone: Hospital Discharge instructions Additional Instructions Wear sling for stabilization of your fractured clavicle. Follow-up with Dr. Quintanilla for repeat evaluation early next week and to discuss further treatment options. Return to the ER should you have any further [facility] Work Phone: Reason for referral (narrative)* Outpatient Procedure (Routine) - New Request Specialty Diagnoses / Procedures Referred By Vivienne hunt Referred [facility] Diagnoses H/O acute myocardial infarction Cardiomyopathy, unspecified type (HCC) Pre-op evaluation Procedures ECHO ECHO TTHRC R-T 2D W/WOM-MODE COMPL SPEC&COLR D Anila De Paz MD [address] [place] [address] [facility] [place] [address] [place] [address] Referral ID Status Reason Start Date Expiration Date Visits Requested Visits Authorized [id number] New Request Auto-Generat ed Referral 06/18/2024 06/18/2025 1 1 * Consult, Test, Treat (Routine) - Authorized Specialty Diagnoses / Procedures Referred By Vivienne hunt Referred To Contact Cardiology Diagnoses H/O acute myocardial infarction Cardiomyopathy, unspecified type (HCC) Pre-op evaluation Procedures CONSULT TO CARDIOLOGY OFFICE/OUTPATIENT [facility] 60 MINUTES Anila De Paz MD [address] [place], [place] [id number] Referral ID Status Reason Start Date Expiration Date Visits Requested Visits Authorized [id number] Authorized PCP Requested Referral 06/18/2024 06/18/2025 1 1 * Consult, Test, Treat (Routine) - Authorized Specialty Diagnoses / Procedures Referred By Vivienne hunt Referred To Contact Internal Medicine Diagnoses Pre-op evaluation Encounter to establish care Procedures CONSULT TO INTERNAL MEDICINE OFFICE/OUTPATIENT [facility] 60 MINUTES Anila De Paz MD [address] [place], [place] [id number] Referral ID Status Reason Start Date Expiration Date Visits Requested Visits Authorized [id number] Authorized PCP Requested Referral 06/18/2024 06/18/2025 1 1 [facility] for referral (narrative)* Outpatient Procedure (Routine) - Closed Specialty Diagnoses / Procedures [facility] Referred To Contact [facility] Diagnoses Hiatal hernia Procedures EGD DIAGNOSTIC ESOPHAGOGASTRODUODENOSC OPY TRANSORAL DIAGNOSTIC Anila De Paz MD [address] [place], [place] [id number] [facility] [place] [address] [place] [id number] Referral ID Status Reason Start Date Expiration Date V isits Requested Visits Authorized [id number] Closed Auto-Generate d Referral 06/18/2024 06/18/2025 1 1 [facility] for referral (narrative)* Outpatient Procedure (Routine) - Authorized Specialty Diagnoses / Procedures [facility] Referred To Contact [facility] Diagnoses Carotid bruit, unspecified laterality Procedures US CAROTID ARTERIES [facility] DUPLEX SCAN EXTRACRANIAL ART COMPL BI STUDY Sourav Marcial MD [id number] [place] [address] [address] Referral ID Status Reason Start Date Expiration Date Visits Requested Visits Authorized [id number] Authorized Auto-Generat ed Referral 4 08/03/2025 1 1 * Outpatient Procedure (Routine) - New Request Specialty Diagnoses / Procedures [facility] Referred To Contact [facility] Diagnoses H/O acute myocardial infarction Procedures ECG COMPLETE ECG ROUTINE ECG W/LEAST 12 LDS W/I&[place] [address] [place] [address] [address] Referral ID Status Reason Start Date Expiration Date Visits Requested Visits Authorized [id number] New Request Auto-Generat ed Referral 4 08/03/2025 1 1 [facility] for referral (narrative)* Outpatient Procedure (Routine) - New Request Specialty Diagnoses / Procedures Referred By [facility] t Referred To Contact [facility] Diagnoses Neuropathy Procedures EMG(NEURO/NI) NERVE CONDUCTION STUDIES 9-10 STUDIES Denice Jacobs PA-C [address] [place] [address] [facility] [place] [address] [place] [address] Referral ID Status Reason Start Date Expiration Date Visits Requested Visits Authorized [id number] New Request Auto-Generat ed Referral 08/06/2025 1 1 [facility] for referral (narrative)* Outpatient Procedure (Routine) - New Request Specialty Diagnoses / Procedures Referred By Cont[facility] t Referred To Contact [facility] Diagnoses Dilated pancreatic duct Procedures EGD - THERAPEUTIC, EUS, OR TUBE INTERVENTIONS EDG US EXAM SURGICAL ALTER STOM DUODENUM/JEJUNUM Susan Srinivasan MD [address] [facility]. Desk [address] [place] [address] [facility] [address] [address] Referral ID Status Reason Start Date Expiration Date Visits Requested Visits Authorized [id number] New Request Auto-Generat ed Referral 09/08/2024 09/08/2025 1 1 [facility] for referral (narrative)* Outpatient Procedure (Routine) - Closed Specialty Diagnoses / Procedures Referred By Contac t Referred To Contact [facility] Diagnoses Choledocholithiasis Procedures ERCP ERCP REMOVE CALCULI/DEBRIS BILIARY/PANCREAS DUCT Alisa Haile MD [address] [facility] [place] [address] [facility] [place] [id number] [place] [address] Referral ID Status Reason Start Date Expiration Date V isits Requested Visits Authorized [id number] Closed Auto-Generate d Referral 09/13/2024 09/13/2025 1 1 [facility] for referral (narrative)* Outpatient Procedure (Routine) - Closed Specialty Diagnoses / Procedures Referred By Vivienne hunt Referred To Contact [facility] Diagnoses Choledocholithiasis Procedures ERCP ERCP REMOVE CALCULI/DEBRIS BILIARY/PANCREAS DUCT Alisa Haile MD [address] [place] [id number] [place] [id number] Referral ID Status Reason Start Date Expiration Date V isits Requested Visits Authorized [id number] Closed Auto-Generate d Referral 09/13/2024 09/13/2025 1 1 * Outpatient Procedure (Routine) - Closed Specialty Diagnoses / Procedures Referred By Vivienne hunt Referred To Contact [facility] Diagnoses Dilated pancreatic duct Procedures EGD - THERAPEUTIC, EUS, OR TUBE INTERVENTIONS EDG US EXAM SURGICAL ALTER STOM DUODENUM/JEJUNUM Susan Srinivasan MD [address] [facility]. Desk [address] [place] [phone] [place] [id number] Referral ID Status Reason Start Date Expiration Date V isits Requested Visits Authorized [id number] Closed Auto-Generate d Referral 09/08/2024 09/08/2025 1 1 [facility] for referral (narrative)No reason for referral information availableWSelect [facility] Work Phone: Reason for visit Narrative* Outpatient Procedure (Routine) - Closed Specialty Diagnoses / Procedures [facility] Referred To Contact [facility] Diagnoses Hiatal hernia Procedures EGD DIAGNOSTIC ESOPHAGOGASTRODUODENOSC OPY TRANSORAL DIAGNOSTIC Anila De Paz MD [address] [place] [id number] [place] [id number] Referral ID Status Reason Start Date Expiration Date V isits Requested Visits Authorized [id number] Closed Auto-Generate d Referral 06/18/2024 06/18/2025 1 1 [facility] for visit Narrative* Outpatient Procedure (Routine) - Closed Specialty Diagnoses / Procedures Referred By Contac t Referred To Contact [facility] Diagnoses Dilated pancreatic duct Procedures EGD - THERAPEUTIC, EUS, OR TUBE INTERVENTIONS EDG US EXAM SURGICAL ALTER STOM DUODENUM/JEJUNUM Susan Srinivasan MD [address] [facility]. [facility] [address] [place] [phone] [facility] [place] [address] [place] [phone] Referral ID Status Reason Start Date Expiration Date V isits Requested Visits Authorized [id number] Closed Auto-Generate d Referral 09/08/2024 09/08/2025 1 1 [facility] for visit Narrative* MRI/CT (Routine) - Closed Specialty Diagnoses / Procedures Referred By Contac t Referred To Contact CT IMAG[facility] Diagnoses Nausea Procedures CT ABD/PEL W IVCON CT ABD & PELVIS W/CONTRAST Anila De Paz MD [address] [place] [address] Phone: tel: fax: [facility] [place] [phone] Referral ID Status Reason Start Date Expiration Date V isits Requested Visits Authorized [id number] Closed Auto-Generate d Referral 11/02/2024 12/02/2025 1 1 [facility] for visit Narrative* MRI/CT (Routine) - Closed Specialty Diagnoses / Procedures Referred By Contac t Referred To Contact [facility] Diagnoses 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, psychotic disturbance, mood disturbance, or anxiety (HCC) Fluctuating mental status Ptosis of right eyelid Procedures MRI BRAIN WO IVCON MRI BRAIN WO IVCON MRI BRAIN BRAIN STEM W/O CONTRAST MATERIAL Laisha Lizarraga, MD PHYSICIAN DERMATOLOGIST.TAX ASSOCIATE ATTORNEY [address] [facility] [place] [address] Phone: tel: fax: [facility] Referral ID Status Reason Start Date Expiration Date V isits Requested Visits Authorized [id number] Closed Auto-Generate d Referral 04/17/2025 04/16/2026 1 1 [facility] Chief Complaint and Reason for Visit [...] Lightheadedness Overactive bladder 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 Essential hypertension [...] Lightheadedness Overactive bladder 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 Essential hypertension Presence of stent in coronary artery Hyperlipidemia Bronchiectasis Hypoxemia Abdominal wall hernia Essential hypertension Restless leg syndrome Seizure disorder Acute bronchitis Chief Complaint Adema in both legs, close to ankles 2 W FU SOB/SELF REF. 3 M FU 3 M FU NON-PRODUCTIVE COUGH Amb Documentation ABD WALL PAIN head injury xray [facility] ER FU CONGITIVE COMMUNICATION. RX HERE Reason for Visit Intermittent constip ation Leg edema, left Varicose veins of both legs with edema Debility Lightheadedness Overactive bladder 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 Essential hypertension Presence of stent in coronary artery Hyperlipidemia Bronchiectasis Hypoxemia Abdominal wall hernia Essential hypertension Restless leg syndrome Seizure disorder Acute bronchitis Right inguinal hernia Fall (on)(from) incline, subsequent encounter Visit for suture removal Chief Complaint SOB/SELF REF. 3 M FU 3 M FU NON-PRODUCTIVE COUGH Amb Documentation ABD WALL PAIN head injury xray [facility] ER FU CONGITIVE COMMUNICATION. RX HERE Primary osteoarthritis, left shoulder CONGITIVE COMMUNICATION. RX HERE Reason for Visit 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 without angina pectoris Essential hypertension Presence of stent in coronary artery Hyperlipidemia Bronchiectasis Hypoxemia Abdominal wall hernia Essential hypertension Restless leg syndrome Seizure disorder Acute bronchitis Right inguinal hernia Fall (on)(from) incline, subsequent encounter Visit for suture removal Chief Complaint SOB/SELF REF. 3 M FU 3 M FU NON-PRODUCTIVE COUGH Amb Documentation ABD WALL PAIN head injury xray [facility] ER FU CONGITIVE COMMUNICATION. RX HERE Primary osteoarthritis, left shoulder CONGITIVE COMMUNICATION. RX HERE POST FALL LAST NIGHT/LEFT ARM PAIN/HIT HEAD EORDERS Reason for Visit 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 without angina pectoris Essential hypertension [...] WALL PAIN head injury xray [facility] ER FU CONGITIVE COMMUNICATION. RX HERE Primary [...] contusion Scalp contusion 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 Debility Essential [...] contusion Scalp contusion 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 Debility Essential [...] Restless leg syndrome 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 Essential hypertension [...] Restless leg syndrome 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 Essential hypertension Lightheadedness Hyperlipidemia Mass of upper inner quadrant of left breast Contusion of thoracic wall Lumbar contusion 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 Cancer Essential [...] for Visit 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 without angina pectoris Essential hypertension Lightheadedness Hyperlipidemia Mass of upper inner quadrant of left breast Contusion of thoracic wall Lumbar contusion 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 Cancer Essential [...] sting Bronchiectasis Hypoxemia 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 ALEXANDER (dyspnea on exertion) Hyperlipidemia Chief Complaint LUMP IN MIDDLE OF CH EST NUMEROUS BEE STINGS/TOP OF THIGH/RIGHT LEG RASH 3 M FU E ORDERS CONGITIVE COMM,BALANCE,WEAKNESS RX HERE 4 M FU Flu Shot DYSPNEA VISION LOSS Reason for Visit Sternal deformity Bee sting Bronchiectasis Hypoxemia 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 ALEXANDER (dyspnea on exertion) Hyperlipidemia Chief Complaint NUMEROUS BEE STINGS/ TOP OF THIGH/RIGHT LEG RASH 3 M FU E ORDERS CONGITIVE COMM,BALANCE,WEAKNESS RX HERE 4 M FU Flu Shot DYSPNEA VISION LOSS LEFT BREAST LUMP FOLLOW UP Reason for Visit Bee sting Bronchiectasis Hypoxemia 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 ALEXANDER (dyspnea on exertion) Hyperlipidemia Chief Complaint LEFT BREAST LUMP FOL LOW UP 6 M FU BACK BRACE RX HERE left hip issues 6 M FU EORDERS Reason for Visit 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 without angina pectoris Debility Essential [...] for Visit 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 without angina pectoris Debility Essential hypertension Falls frequently Hiatal hernia Hyperlipidemia Restless leg syndrome Right inguinal hernia Vascular dementia Difficulty swallowing Hiatal hernia Mass of upper inner quadrant of left breast Sternal deformity Osteoporosis Bronchiectasis Hypoxemia 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 Dizziness Hyperlipidemia Chief Complaint BACK BRACE RX HERE left hip issues 6 M FU EORDERS 6 M FU DIZZINESS Amb Documentation Reason for Visit Hiatal hernia Mass of upper inner quadrant of left breast Sternal deformity Osteoporosis Bronchiectasis Hypoxemia 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 Dizziness Hyperlipidemia Chief Complaint Admit Date RIGHT KNEE July 05, 2024 1:18pm Surgery Clearance July 07, 2024 11:42am OSTEOARTHRITIS OF RIGHT KNEE. RX HERE No vember 2023 1:30pm RIGHT KNEE July 12, 2024 3:46pm RIGHT KNEE July 19, 2024 3 :39pm Room 2 July 19, 2024 4 :00pm fall September 18, 2024 8 :36am F/U Shelter Discharge September 1:03pm SCREENING October 18, 2024 1:23 pm 6 M FU October 22, 2024 2:11 pm Reason for Visit Admit Date Osteoarthritis of right knee July 052023 1:18pm 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 July 07, [...] fall September 18, 2024 8 :36am F/U Shelter Discharge September 1:03pm SCREENING October 18, 2024 [...] fall September 18, 2024 8 :36am F/U Shelter Discharge September 1:03pm SCREENING October 18, 2024 [...] 2024 2:11pm Chief Complaint Admit Date F/U Shelter Discharge September 1:03pm SCREENING October 18, 2024 1:23 pm 6 M FU October 22, 2024 2:11 pm BALANCE PROB,WEAKNESS,REPEATED FALLS/RX HERE February 01, 2025 1:30pm UPPER EXTREMITY February 03, 2025 4:05 am Chief Complaint Admit Date F/U Shelter Discharge September 1:03pm SCREENING October 18, 2024 [...] fracture of right clavicle January 172024 10:59am Chief Complaint Admit Date F/U Shelter Discharge September 1:03pm SCREENING October 18, 2024 1:23 pm 6 M FU October 22, 2024 2:11 pm BALANCE PROB,WEAKNESS,REPEATED FALLS/RX HERE February 01, 2025 1:30pm UPPER EXTREMITY February 03, 2025 4:05 am upper extremity February 06, 2025 10:4 0am RIGHT CLAVICLE FRACTURE February 06, 2025 10:51am RIGHT CLAVICLE FRACTURE February 06, 2025 3:29pm RIGHT CLAVICLE FRACTURE February 07, 2025 7:39am RIGHT CLAVICLE FRACTURE February 07, 2025 4:05pm RIGHT CLAVICLE FRACTURE February 08, 2025 11:47am Reason for Visit Admit Date Depression October [...] Closed fracture of right clavicle January 172024 10:51am Debility February 06, 2025 10:5 1am Chief Complaint Admit Date BALANCE PROB,WEAKNESS,REPEATED FALLS/RX HERE February 01, 2025 1:30pm UPPER EXTREMITY February 03, 2025 4:05 am upper extremity February 06, 2025 10:4 0am RIGHT CLAVICLE FRACTURE February 06, 2025 10:51am RIGHT CLAVICLE FRACTURE February 06, 2025 3:29pm RIGHT CLAVICLE FRACTURE February 07, 2025 7:39am RIGHT CLAVICLE FRACTURE February 07, 2025 4:05pm CP February 07, 2025 6:30 pm RIGHT CLAVICLE FRACTURE February 08, 2025 11:47am RIGHT CLAVICLE February 22, 2025 12:56 pm Room 4 February 22, 2025 1:37p m Reason for Visit Admit Date Debility February 06, 2025 10:5 1am Closed fracture of right clavicle January 172024 10:51am Right clavicle fracture February 22, 2025 1 2:56pm Chief Complaint Admit Date BALANCE PROB,WEAKNESS,REPEATED FALLS/RX HERE February 01, 2025 1:30pm UPPER EXTREMITY February 03, 2025 4:05 am upper extremity February 06, 2025 10:4 0am RIGHT CLAVICLE FRACTURE February 06, 2025 10:51am RIGHT CLAVICLE FRACTURE February 06, 2025 3:29pm RIGHT CLAVICLE FRACTURE February 07, 2025 7:39am RIGHT CLAVICLE FRACTURE February 07, 2025 4:05pm CP February 07, 2025 6:30 pm RIGHT CLAVICLE FRACTURE February 08, 2025 11:47am ADMISSION AND HISTORY & PHYSICAL February 092024 6:15pm RIGHT CLAVICLE February 22, 2025 12:56 pm Room 4 February 22, 2025 1:37p m Chief Complaint Admit Date BALANCE PROB,WEAKNESS,REPEATED FALLS/RX HERE February 01, 2025 1:30pm UPPER EXTREMITY February 03, 2025 4:05 am upper extremity February 06, 2025 10:4 0am RIGHT CLAVICLE FRACTURE February 06, 2025 10:51am RIGHT CLAVICLE FRACTURE February 06, 2025 3:29pm RIGHT CLAVICLE FRACTURE February 07, 2025 7:39am RIGHT CLAVICLE FRACTURE February 07, 2025 4:05pm CP February 07, 2025 6:30 pm RIGHT CLAVICLE FRACTURE February 08, 2025 11:47am ADMISSION AND HISTORY & PHYSICAL February 092024 6:15pm NEW CONCERN February 10, 2025 3:45 pm RIGHT CLAVICLE February 22, 2025 12:56 pm Room 4 February 22, 2025 1:37p m Chief Complaint Admit Date BALANCE PROB,WEAKNESS,REPEATED FALLS/RX HERE February 01, 2025 1:30pm UPPER EXTREMITY February 03, 2025 4:05 am upper extremity February 06, 2025 10:4 0am RIGHT CLAVICLE FRACTURE February 06, 2025 10:51am RIGHT CLAVICLE FRACTURE February 06, 2025 3:29pm RIGHT CLAVICLE FRACTURE February 07, 2025 7:39am RIGHT CLAVICLE FRACTURE February 07, 2025 4:05pm CP February 07, 2025 6:30 pm RIGHT CLAVICLE FRACTURE February 08, 2025 11:47am ADMISSION AND HISTORY & PHYSICAL February 092024 6:15pm NEW CONCERN February 10, 2025 3:45 pm NEW CONCERN February 11, 2025 2:30 pm RIGHT CLAVICLE February 22, 2025 12:56 pm Room 4 February 22, 2025 1:37p m Chief Complaint Admit Date BALANCE PROB,WEAKNESS,REPEATED FALLS/RX HERE February 01, 2025 1:30pm UPPER EXTREMITY February 03, 2025 4:05 am upper extremity February 06, 2025 10:4 0am RIGHT CLAVICLE FRACTURE February 06, 2025 10:51am RIGHT CLAVICLE FRACTURE February 06, 2025 3:29pm RIGHT CLAVICLE FRACTURE February 07, 2025 7:39am RIGHT CLAVICLE FRACTURE February 07, 2025 4:05pm CP February 07, 2025 6:30 pm RIGHT CLAVICLE FRACTURE February 08, 2025 11:47am ADMISSION AND HISTORY & PHYSICAL February 092024 6:15pm PRISON LAB WORK February 10, 2025 6: 00am NEW CONCERN February 10, 2025 3:45 pm NEW CONCERN February 11, 2025 2:30 pm PRISON LAB WORK February 14, 2025 5: 00am RIGHT CLAVICLE February 22, 2025 12:56 pm Room 4 February 22, 2025 1:37p m PAIN March 11, 2025 6:07 pm Chief Complaint Admit Date BALANCE PROB,WEAKNESS,REPEATED FALLS/RX HERE February 01, 2025 1:30pm UPPER EXTREMITY February 03, 2025 4:05 am upper extremity February 06, 2025 10:4 0am RIGHT CLAVICLE FRACTURE February 06, 2025 10:51am RIGHT CLAVICLE FRACTURE February 06, 2025 3:29pm RIGHT CLAVICLE FRACTURE February 07, 2025 7:39am RIGHT CLAVICLE FRACTURE February 07, 2025 4:05pm CP February 07, 2025 6:30 pm RIGHT CLAVICLE FRACTURE February 08, 2025 11:47am ADMISSION AND HISTORY & PHYSICAL February 092024 6:15pm PRISON LAB WORK February 10, 2025 6: 00am NEW CONCERN February 10, 2025 3:45 pm NEW CONCERN February 11, 2025 2:30 pm PRISON LAB WORK February 14, 2025 5: 00am RIGHT CLAVICLE February 22, 2025 12:56 pm Room 4 February 22, 2025 1:37p m PAIN March 11, 2025 6:07 pm Bilateral Leg Swelling March 14, 2025 1 1:23am Chief Complaint Admit Date BALANCE PROB,WEAKNESS,REPEATED FALLS/RX HERE February 01, 2025 1:30pm UPPER EXTREMITY February 03, 2025 4:05 am upper extremity February 06, 2025 10:4 0am RIGHT CLAVICLE FRACTURE February 06, 2025 10:51am RIGHT CLAVICLE FRACTURE February 06, 2025 3:29pm RIGHT CLAVICLE FRACTURE February 07, 2025 7:39am RIGHT CLAVICLE FRACTURE February 07, 2025 4:05pm CP February 07, 2025 6:30 pm RIGHT CLAVICLE FRACTURE February 08, 2025 11:47am ADMISSION AND HISTORY & PHYSICAL February 092024 6:15pm PRISON LAB WORK February 10, 2025 6: 00am NEW CONCERN February 10, 2025 3:45 pm NEW CONCERN February 11, 2025 2:30 pm PRISON LAB WORK February 14, 2025 5: 00am PRISON LAB WORK February 22, 2025 4:0 0am RIGHT CLAVICLE February 22, 2025 12:56 pm Room 4 February 22, 2025 1:37p m PAIN March 11, 2025 6:07 pm Bilateral Leg Swelling March 14, 2025 1 1:23am 12MO CHRONIC UTI F/U March 22, 2025 11 :03am Reason for Visit Admit Date Debility February 06, 2025 10:5 1am Closed fracture of right clavicle January 172024 10:51am Right clavicle fracture February 22, 2025 1 2:56pm Essential hypertension March 14, 2025 1 1:23am Falls frequently March 14, 2025 11:2 3am Vascular dementia March 14, 2025 11:2 3am RSD (reflex sympathetic dystrophy) March 14, 2025 11:23am Seizure disorder March 14, 2025 11:2 3am Bilateral lower extremity edema February 11:23am Closed fracture of right clavicle with n onunion March 14, 2025 11:23am Episode of shaking March 14, 2025 11:2 3am Nocturia March 22, 2025 11: 03am Overactive bladder March 22, 2025 11: 03am Urge incontinence March 22, 2025 11: 03am UTI (urinary tract infection) March 11:03am Vaginal atrophy March 22, 2025 11: 03am Chief Complaint Admit Date BALANCE PROB,WEAKNESS,REPEATED FALLS/RX HERE February 01, 2025 1:30pm UPPER EXTREMITY February 03, 2025 4:05 am upper extremity February 06, 2025 10:4 0am RIGHT CLAVICLE FRACTURE February 06, 2025 10:51am RIGHT CLAVICLE FRACTURE February 06, 2025 3:29pm RIGHT CLAVICLE FRACTURE February 07, 2025 7:39am RIGHT CLAVICLE FRACTURE February 07, 2025 4:05pm CP February 07, 2025 6:30 pm RIGHT CLAVICLE FRACTURE February 08, 2025 11:47am ADMISSION AND HISTORY & PHYSICAL February 092024 6:15pm PRISON LAB WORK February 10, 2025 6: 00am NEW CONCERN February 10, 2025 3:45 pm NEW CONCERN February 11, 2025 2:30 pm PRISON LAB WORK February 14, 2025 5: 00am Admission Exam February 15, 2025 3:33p m PRISON LAB WORK February 22, 2025 4:0 0am RIGHT CLAVICLE February 22, 2025 12:56 pm Room 4 February 22, 2025 1:37p m PAIN March 11, 2025 6:07 pm Bilateral Leg Swelling March 14, 2025 1 1:23am 12MO CHRONIC UTI F/U March 22, 2025 11 :03am Chief Complaint Admit Date BALANCE PROB,WEAKNESS,REPEATED FALLS/RX HERE February 01, 2025 1:30pm UPPER EXTREMITY February 03, 2025 4:05 am upper extremity February 06, 2025 10:4 0am RIGHT CLAVICLE FRACTURE February 06, 2025 10:51am RIGHT CLAVICLE FRACTURE February 06, 2025 3:29pm RIGHT CLAVICLE FRACTURE February 07, 2025 7:39am RIGHT CLAVICLE FRACTURE February 07, 2025 4:05pm CP February 07, 2025 6:30 pm RIGHT CLAVICLE FRACTURE February 08, 2025 11:47am ADMISSION AND HISTORY & PHYSICAL February 092024 6:15pm PRISON LAB WORK February 10, 2025 6: 00am NEW CONCERN February 10, 2025 3:45 pm NEW CONCERN February 11, 2025 2:30 pm PRISON LAB WORK February 14, 2025 5: 00am Admission Exam February 15, 2025 3:33p m PRISON LAB WORK February 22, 2025 4:0 0am RIGHT CLAVICLE February 22, 2025 12:56 pm Room 4 February 22, 2025 1:37p m PAIN March 11, 2025 6:07 pm Bilateral Leg Swelling March 14, 2025 1 1:23am 12MO CHRONIC UTI F/U March 22, 2025 11 :03am laceration May 03, 2025 3:03pm Family History No Family History Records Found Relationship Condition Age at Onset Recorded Date/T arun mother Cerebrovascular accident (CVA) Unknown father Myocardial infarction Unknown Relationship Condition Age at Onset Recorded Date/T arun mother Cerebrovascular accident (CVA) Unknown Arthritis Unknown father Myocardial infarction 40 Alcoholism Unknown Hypertension Unknown sister Anemia Unknown grandmother Disorder of intestine Unknown Osteoporosis Unknown Malignant neoplasm of ovary Unknown Relationship Condition Age at Onset Recorded Date/T arun Not Specified Cardiac disease Unknown mother Cerebrovascular accident (CVA) Unknown Arthritis Unknown father Myocardial infarction 40 Alcoholism Unknown Hypertension Unknown sister Anemia Unknown grandmother Disorder of intestine Unknown Osteoporosis Unknown Malignant neoplasm of ovary Unknown Advance Directives No Advanced Directives Records Found Advance Directive Response Recorded Date/ Time Name of Medical Power of Spindle Tester Delroy PURVIS hu sband September 01, 2021 6:35pm Name of Medical Power of Spindle Tester Delroy Craft e September 02, 2021 8:44pm Name of Medical Power of Spindle Tester Delroy September 05, 2021 12:39pm Living Will Yes October 05 6:26pm Power of Spindle Tester Yes October 05, 2021 6:26pm Advance Directive Response Recorded Date/ Time Living Will Yes October 05 6:26pm Power of Spindle Tester Yes October 05, 2021 6:26pm Advance Directive Response Recorded Date/ Time Name of Medical Power of Spindle Tester ? February 15, 2022 9:51am Living Will Yes February 15, 2022 9 :51am Power of Spindle Tester Yes February 15, 2022 9:51am Advance Directive Response Recorded Date/ Time Name of Medical Power of Spindle Tester ? February 15, 2022 9:51am Name of Medical Power of Spindle Tester delroy craft e- March 15, 2022 7:44pm Living Will Yes March 15, 2022 7:44pm Power of Spindle Tester Yes March 15 7:44pm Advance Directive Response Recorded Date/ Time Name of Medical Power of Spindle Tester delroy crafte- March 15, 2022 6:44pm Name of Medical Power of Spindle Tester delroy -- July 13, 2022 12:23am Living Will Yes July 13 12:23am Power of Spindle Tester Yes July 13, 2022 12:23am Advance Directive Response Recorded Date/ Time Name of Medical Power of Spindle Tester delroy --asia gilmore July 13, 2022 12:23am Living Will Yes July 13 12:23am Power of Spindle Tester Yes July 13, 2022 12:23am Advance Directive Response Recorded Date/ Time Name of Medical Power of Spindle Tester delroy --asia gilmore July 13, 2022 12:23am Name of Medical Power of Spindle Tester COREY October 16, 2022 6:43pm Living Will Yes October 16, 2022 6:43pm Power of Spindle Tester Yes October 16 6:43pm Advance Directive Response Recorded Date/ Time Name of Medical Power of Spindle Tester [facility] October 16, 2022 7:43pm Living Will Yes October 16, 2022 7:43pm Power of Spindle Tester Yes October 16 7:43pm Advance Directive Response Recorded Date/ Time Living Will Yes January 20, 2023 8 :53am Power of Spindle Tester Yes January 20, 2023 8:53am Name of Medical Power of Spindle Tester [facility] October 16, 2022 7:43pm Advance Directive Response Recorded Date/ Time Living Will Yes January 20, 2023 8 :53am Power of Spindle Tester Yes January 20, 2023 8:53am Advance Directive Response Recorded Date/ Time Living Will Yes March 24, 2023 11:37am Power of Spindle Tester Yes March 24 11:37am Advance Directive Response Recorded Date/ Time Living Will Yes May 15, 2023 2:11pm Power of Spindle Tester Yes April 2:11pm Advance Directive Response Recorded Date/ Time Living Will Yes May 15, 2023 1:11pm Power of Spindle Tester Yes April 1:11pm Documents on File Type Date Recorded 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 Advance Directive(s) 08/06/2024 2:46 PM Documents on File Type Date Recorded 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 Yes March 16, 2024 9:39am Living Will Yes September 18 10:27am Do you have a Healthcare Power of Spindle Tester? Yes September 18, 2024 10:27am Name of Medical Power of Spindle Tester September 18, 2024 10:27am Advance Directive Response Recorded Date/ Time Living Will Yes March 16, 2024 9:39am Do you have a Healthcare Power of Spindle Tester? Yes March 16, 2024 9:39am Do you have a Healthcare Power of Spindle Tester? Yes February 03, 2025 4:07am Advance Directive Response Recorded Date/ Time Living Will Yes March 16, 2024 9:39am Do you have a Healthcare Power of Spindle Tester? Yes March 16, 2024 9:39am Do you have a Healthcare Power of Spindle Tester? No February 06, 2025 7:36am Do you have a Healthcare Power of Spindle Tester? Yes February 03, 2025 4:07am Advance Directive Response Recorded Date/ Time Living Will Yes March 16, 2024 9:39am Do you have a Healthcare Power of Spindle Tester? Yes March 16, 2024 9:39am Do you have a Healthcare Power of Spindle Tester? No February 06, 2025 11:22am Do you have a Healthcare Power of Spindle Tester? Yes February 03, 2025 4:07am Advance Directive Response Recorded Date/ Time Do you have a Healthcare Power of Spindle Tester? No February 06, 2025 11:22am Do you have a Healthcare Power of Spindle Tester? Yes February 03, 2025 4:07am Advance Directive Response Recorded Date/ Time Do you have a Healthcare Power of Spindle Tester? No February 06, 2025 11:22am Do you have a Healthcare Power of Spindle Tester? Yes March 11, 2025 6:35pm Do you have a Healthcare Power of Spindle Tester? Yes February 03, 2025 4:07am Advance Directive Response Recorded Date/ Time Do you have a Healthcare Power of Spindle Tester? No February 06, 2025 11:22am Do you have a Healthcare Power of Spindle Tester? Yes March 11, 2025 6:35pm Do you have a Healthcare Power of Spindle Tester? Yes February 03, 2025 4:07am Do you have a Healthcare Power of Spindle Tester? Yes May 03, 2025 3:53pm Reason for Referral Specialty Diagnoses / Procedures Referred By Contac t Referred To Contact [facility] Diagnoses Dementia without behavioral disturbance, unspecified dementia type (HCC) Cognitive communication deficit Procedures CONSULT TO SPEECH THERAPY OFFICE/OUTPATIENT [facility] 60-74 MINUTES Laisha Lizarraga APRN.[employer]X ASSOCIATE ATTORNEY [id number] [facility] [place] [address] Referral ID Status Reason Start Date Expiration Date Visits Requested Visits Authorized [id number] Authorized Auto-Generat ed Referral 04/11/2022 04/11/2023 99 99 Specialty Diagnoses / Procedures Referred By Contac t Referred To Contact [facility] IMAGING Diagnoses Dementia without behavioral disturbance (HCC) Procedures MRI 3D POST PROCESSING 3D RENDERING W/INTERP&POSTPROC DIFF WORK STATION Laisha Lizarraga APRN.TAX ASSOCIATE ATTORNEY [address] [place] [address] Mr Imaging Referral ID Status Reason Start Date Expiration Date Visits Requested Visits Authorized [id number] Authorized Auto-Generat ed Referral 11/13/2022 12/13/2023 1 1 Specialty Diagnoses / Procedures Referred By Contac t Referred To Contact MR IMAGING Diagnoses Dementia without behavioral disturbance (HCC) Procedures MRI BRAIN W QUANT WO IVCON MRI BRAIN BRAIN STEM W/O CONTRAST MATERIAL Laisha Lizarraga, TAX ASSOCIATE ATTORNEY [address] [place] [address] Mr Imaging Referral ID Status Reason Start Date Expiration Date Visits Requested Visits Authorized [id number] Authorized Auto-Generat ed Referral 11/13/2022 12/13/2023 1 1 Specialty Diagnoses / Procedures Referred By Contac t Referred To Contact MR IMAGING Diagnoses Dementia without behavioral disturbance (HCC) Procedures MRI 3D POST PROCESSING 3D RENDERING W/INTERP&POSTPROC DIFF WORK STATION Laisha Lizarraga, ANGELO [address] [place] [address] Mr [facility] [place] [address] Referral ID Status Reason Start Date Expiration Date V isits Requested Visits Authorized [id number] Closed Auto-Generate d Referral 11/13/2022 12/13/2023 1 1 Specialty Diagnoses / Procedures Referred By Contac t Referred To Contact MR IMAGING Diagnoses Dementia without behavioral disturbance (HCC) Procedures MRI BRAIN W QUANT WO IVCON MRI BRAIN BRAIN STEM W/O CONTRAST MATERIAL Laisha Lizarraga APRN.TAX ASSOCIATE ATTORNEY [address] [place] [address] [facility] [place] [address] Referral ID Status Reason Start Date Expiration Date V isits Requested Visits Authorized [id number] Closed Auto-Generate d Referral 11/13/2022 12/13/2023 1 1 Specialty Diagnoses / Procedures Referred By Contac t Referred To Contact General Surgery Diagnoses Hiatal hernia Gastroesophageal reflux disease, unspecified whether esophagitis present Procedures CONSULT TO GENERAL SURGERY OFFICE/OUTPATIENT [facility] 60 MINUTES Susan Squires MD [address] [facility] [place] [address] Laisha Sheppard MD [address] [place] [address] Referral ID Status Reason Start Date Expiration Date Visits Requested Visits Authorized [id number] Authorized PCP Requested Referral 05/17/2024 05/17/2025 1 1 Specialty Diagnoses / Procedures Referred By Contac t Referred To Contact CT IMAGING Diagnoses Hiatal hernia Procedures CT CHEST W IVCON DIAGNOSTIC COMPUTED TOMOGRAPHY THORAX W/CONTRAST Anila De Paz MD [address] [place], [place] [id number] Ct [facility] [place] [address] Referral ID Status Reason Start Date Expiration Date Visits Requested Visits Authorized [id number] New Request Auto-Generat ed Referral 06/18/2024 07/18/2025 1 1 Specialty Diagnoses / Procedures Referred By Contac t Referred To Contact CT IMAGING Diagnoses Hiatal hernia Procedures CT ABD/PEL W IVCON CT ABD & PELVIS W/CONTRAST Anila De Paz MD [address] [place], [place] [id number] Ct [facility] [place] [id number] Referral ID Status Reason Start Date Expiration Date Visits Requested Visits Authorized [id number] New Request Auto-Generat ed Referral 06/18/2024 07/18/2025 1 1 Specialty Diagnoses / Procedures Referred By Contac t Referred To Contact [facility] Diagnoses Hiatal hernia Procedures EGD DIAGNOSTIC ESOPHAGOGASTRODUODENOSC OPY TRANSORAL DIAGNOSTIC Anila De Paz MD [address] [place], [place] [id number] [facility] [place] [address] [place], [place] [id number] Referral ID Status Reason Start Date Expiration Date Visits Requested Visits Authorized [id number] Authorized Auto-Generat ed Referral 06/18/2024 06/18/2025 1 1 Referral ID Status Reason Start Date Expiration Date V isits Requested Visits Authorized [id number] Closed Auto-Generate d Referral 06/18/2024 07/18/2025 1 1 Specialty Diagnoses / Procedures Referred By Contac t Referred To Contact Diagnoses 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, psychotic disturbance, mood disturbance, or anxiety (HCC) Procedures PROVIDER ORDERED FOLLOW UP OFFICE/OUTPATIENT [facility] 60 MINUTES Laisha Lizarraga, MD PHYSICIAN DERMATOLOGIST.[employer]ATE [employer]ORNEY [address] [place] [address] Referral ID Status Reason Start Date Expiration Date Visits Requested Visits Authorized [id number] Authorized PCP Requested Referral 4 07/01/2025 1 1 Specialty Diagnoses / Procedures Referred By Contac t Referred To Contact Neurology Diagnoses Paresthesia of both feet Procedures CONSULT TO NEUROLOGY OFFICE/OUTPATIENT [facility] 60 MINUTES Laisha Lizarraga, MD PHYSICIAN DERMATOLOGIST.TAX ASSOCIATE ATTORNEY [address] [place] [id number] Referral ID Status Reason Start Date Expiration Date Visits Requested Visits Authorized [id number] Authorized PCP Requested Referral 07/01/2025 1 1 Specialty Diagnoses / Procedures Referred By Contac t Referred To Contact MR IMAGING Diagnoses Abnormal results of liver function studies Procedures MRI 3D POST PROCESSING 3D RENDERING W/INTERP&POSTPROC DIFF WORK STATION Anila De Paz MD [address] [place], [place] [id number] [facility] [place] [address] Referral ID Status Reason Start Date Expiration Date Visits Requested Visits Authorized [id number] Authorized Auto-Generat ed Referral 09/03/2024 10/03/2025 1 1 Specialty Diagnoses / Procedures Referred By Contac t Referred To Contact MR IMAGING Diagnoses Abnormal results of liver function studies Procedures MRI PANC/MAGNOLIA WO/W IVCON MRI ABDOMEN W/O & W/CONTRAST MATERIAL nAila De Paz MD [address] [place], [place] [id number] [facility] [place] [address] Referral ID Status Reason Start Date Expiration Date Visits Requested Visits Authorized [id number] Authorized Auto-Generat ed Referral 09/03/2024 10/03/2025 1 1 Specialty Diagnoses / Procedures Referred By Contac t Referred To Contact Diagnoses Hiatal hernia Epigastric pain Nausea and vomiting, unspecified vomiting type Pre-op exam Procedures REFER TO [facility] PREOPERATIVE OPTIMIZATION OFFICE/OUTPATIENT [facility] 60 MINUTES Anila De Paz MD [address] [place], [place] [id number] Referral ID Status Reason Start Date Expiration Date Visits Requested Visits Authorized [id number] Authorized PCP Requested Referral 09/03/2024 09/03/2025 1 1 Referral ID Status Reason Start Date Expiration Date V isits Requested Visits Authorized [id number] Closed Auto-Generate d Referral 09/03/2024 10/03/2025 1 1 Referral ID Status Reason Start Date Expiration Date V isits Requested Visits Authorized [id number] Closed Auto-Generate d Referral 09/03/2024 10/03/2025 1 1 Summary Purpose Additional Source Comments Source Comments (unrecognize d section and content) In the event this informatio n is protected by the Federal Confidentiality of Alcohol and Drug Abuse Patient Records regulations: The Federal rules restrict any use of the information to criminally investigate or prosecute any alcohol or drug abuse patient.[facility] HospitalIn the event this information is protected by the Federal Confidentiality of Alcohol and Drug Abuse Patient Records regulations: The Federal rules restrict any use of the information to criminally investigate or prosecute any alcohol or drug abuse patient.[facility] HospitalIn the event this information is protected by the Federal Confidentiality of Alcohol and Drug Abuse Patient Records regulations: The Federal rules restrict any use of the information to criminally investigate or prosecute any alcohol or drug abuse patient.[facility] HospitalIn the event this information is protected by the Federal Confidentiality of Alcohol and Drug Abuse Patient Records regulations: The Federal rules restrict any use of the information to criminally investigate or prosecute any alcohol or drug abuse patient.[facility] HospitalIn the event this information is protected by the Federal Confidentiality of Alcohol and Drug Abuse Patient Records regulations: The Federal rules restrict any use of the information to criminally investigate or prosecute any alcohol or drug abuse patient.[facility] HospitalIn the event this information is protected by the Federal Confidentiality of Alcohol and Drug Abuse Patient Records regulations: The Federal rules restrict any use of the information to criminally investigate or prosecute any alcohol or drug abuse patient.[facility] HospitalIn the event this information is protected by the Federal Confidentiality of Alcohol and Drug Abuse Patient Records regulations: The Federal rules restrict any use of the information to criminally investigate or prosecute any alcohol or drug abuse patient.[facility] HospitalIn the event this information is protected by the Federal Confidentiality of Alcohol and Drug Abuse Patient Records regulations: The Federal rules restrict any use of the information to criminally investigate or prosecute any alcohol or drug abuse patient.[facility] HospitalIn the event this information is protected by the Federal Confidentiality of Alcohol and Drug Abuse Patient Records regulations: The Federal rules restrict any use of the information to criminally investigate or prosecute any alcohol or drug abuse patient.[facility] HospitalIn the event this information is protected by the Federal Confidentiality of Alcohol and Drug Abuse Patient Records regulations: The Federal rules restrict any use of the information to criminally investigate or prosecute any alcohol or drug abuse patient.[facility] HospitalIn the event this information is protected by the Federal Confidentiality of Alcohol and Drug Abuse Patient Records regulations: The Federal rules restrict any use of the information to criminally investigate or prosecute any alcohol or drug abuse patient.[facility] HospitalIn the event this information is protected by the Federal Confidentiality of Alcohol and Drug Abuse Patient Records regulations: The Federal rules restrict any use of the information to criminally investigate or prosecute any alcohol or drug abuse patient.[facility] HospitalIn the event this information is protected by the Federal Confidentiality of Alcohol and Drug Abuse Patient Records regulations: The Federal rules restrict any use of the information to criminally investigate or prosecute any alcohol or drug abuse patient.[facility] HospitalIn the event this information is protected by the Federal Confidentiality of Alcohol and Drug Abuse Patient Records regulations: The Federal rules restrict any use of the information to criminally investigate or prosecute any alcohol or drug abuse patient.[facility] HospitalIn the event this information is protected by the Federal Confidentiality of Alcohol and Drug Abuse Patient Records regulations: The Federal rules restrict any use of the information to criminally investigate or prosecute any alcohol or drug abuse patient.[facility] HospitalIn the event this information is protected by the Federal Confidentiality of Alcohol and Drug Abuse Patient Records regulations: The Federal rules restrict any use of the information to criminally investigate or prosecute any alcohol or drug abuse patient.[facility] HospitalIn the event this information is protected by the Federal Confidentiality of Alcohol and Drug Abuse Patient Records regulations: The Federal rules restrict any use of the information to criminally investigate or prosecute any alcohol or drug abuse patient.[facility] HospitalIn the event this information is protected by the Federal Confidentiality of Alcohol and Drug Abuse Patient Records regulations: The Federal rules restrict any use of the information to criminally investigate or prosecute any alcohol or drug abuse patient.[facility] HospitalIn the event this information is protected by the Federal Confidentiality of Alcohol and Drug Abuse Patient Records regulations: The Federal rules restrict any use of the information to criminally investigate or prosecute any alcohol or drug abuse patient.[facility] HospitalIn the event this information is protected by the Federal Confidentiality of Alcohol and Drug Abuse Patient Records regulations: The Federal rules restrict any use of the information to criminally investigate or prosecute any alcohol or drug abuse patient.[facility] HospitalIn the event this information is protected by the Federal Confidentiality of Alcohol and Drug Abuse Patient Records regulations: The Federal rules restrict any use of the information to criminally investigate or prosecute any alcohol or drug abuse patient.[facility] HospitalIn the event this information is protected by the Federal Confidentiality of Alcohol and Drug Abuse Patient Records regulations: The Federal rules restrict any use of the information to criminally investigate or prosecute any alcohol or drug abuse patient.[facility] HospitalIn the event this information is protected by the Federal Confidentiality of Alcohol and Drug Abuse Patient Records regulations: The Federal rules restrict any use of the information to criminally investigate or prosecute any alcohol or drug abuse patient.[facility] HospitalIn the event this information is protected by the Federal Confidentiality of Alcohol and Drug Abuse Patient Records regulations: The Federal rules restrict any use of the information to criminally investigate or prosecute any alcohol or drug abuse patient.[facility] HospitalIn the event this information is protected by the Federal Confidentiality of Alcohol and Drug Abuse Patient Records regulations: The Federal rules restrict any use of the information to criminally investigate or prosecute any alcohol or drug abuse patient.[facility] HospitalIn the event this information is protected by the Federal Confidentiality of Alcohol and Drug Abuse Patient Records regulations: The Federal rules restrict any use of the information to criminally investigate or prosecute any alcohol or drug abuse patient.[facility] HospitalIn the event this information is protected by the Federal Confidentiality of Alcohol and Drug Abuse Patient Records regulations: The Federal rules restrict any use of the information to criminally investigate or prosecute any alcohol or drug abuse patient.[facility] HospitalIn the event this information is protected by the Federal Confidentiality of Alcohol and Drug Abuse Patient Records regulations: The Federal rules restrict any use of the information to criminally investigate or prosecute any alcohol or drug abuse patient.[facility] HospitalIn the event this information is protected by the Federal Confidentiality of Alcohol and Drug Abuse Patient Records regulations: The Federal rules restrict any use of the information to criminally investigate or prosecute any alcohol or drug abuse patient.[facility] HospitalIn the event this information is protected by the Federal Confidentiality of Alcohol and Drug Abuse Patient Records regulations: The Federal rules restrict any use of the information to criminally investigate or prosecute any alcohol or drug abuse patient.[facility] HospitalIn the event this information is protected by the Federal Confidentiality of Alcohol and Drug Abuse Patient Records regulations: The Federal rules restrict any use of the information to criminally investigate or prosecute any alcohol or drug abuse patient.[facility] HospitalIn the event this information is protected by the Federal Confidentiality of Alcohol and Drug Abuse Patient Records regulations: The Federal rules restrict any use of the information to criminally investigate or prosecute any alcohol or drug abuse patient.[facility] HospitalIn the event this information is protected by the Federal Confidentiality of Alcohol and Drug Abuse Patient Records regulations: The Federal rules restrict any use of the information to criminally investigate or prosecute any alcohol or drug abuse patient.[facility] HospitalIn the event this information is protected by the Federal Confidentiality of Alcohol and Drug Abuse Patient Records regulations: The Federal rules restrict any use of the information to criminally investigate or prosecute any alcohol or drug abuse patient.[facility] HospitalIn the event this information is protected by the Federal Confidentiality of Alcohol and Drug Abuse Patient Records regulations: The Federal rules restrict any use of the information to criminally investigate or prosecute any alcohol or drug abuse patient.[facility] HospitalIn the event this information is protected by the Federal Confidentiality of Alcohol and Drug Abuse Patient Records regulations: The Federal rules restrict any use of the information to criminally investigate or prosecute any alcohol or drug abuse patient.[facility] HospitalIn the event this information is protected by the Federal Confidentiality of Alcohol and Drug Abuse Patient Records regulations: The Federal rules restrict any use of the information to criminally investigate or prosecute any alcohol or drug abuse patient.[facility] HospitalIn the event this information is protected by the Federal Confidentiality of Alcohol and Drug Abuse Patient Records regulations: The Federal rules restrict any use of the information to criminally investigate or prosecute any alcohol or drug abuse patient.[facility] HospitalIn the event this information is protected by the Federal Confidentiality of Alcohol and Drug Abuse Patient Records regulations: The Federal rules restrict any use of the information to criminally investigate or prosecute any alcohol or drug abuse patient.[facility] HospitalIn the event this information is protected by the Federal Confidentiality of Alcohol and Drug Abuse Patient Records regulations: The Federal rules restrict any use of the information to criminally investigate or prosecute any alcohol or drug abuse patient.[facility] HospitalIn the event this information is protected by the Federal Confidentiality of Alcohol and Drug Abuse Patient Records regulations: The Federal rules restrict any use of the information to criminally investigate or prosecute any alcohol or drug abuse patient.[facility] HospitalIn the event this information is protected by the Federal Confidentiality of Alcohol and Drug Abuse Patient Records regulations: The Federal rules restrict any use of the information to criminally investigate or prosecute any alcohol or drug abuse patient.[facility] HospitalIn the event this information is protected by the Federal Confidentiality of Alcohol and Drug Abuse Patient Records regulations: The Federal rules restrict any use of the information to criminally investigate or prosecute any alcohol or drug abuse patient.[facility] HospitalIn the event this information is protected by the Federal Confidentiality of Alcohol and Drug Abuse Patient Records regulations: The Federal rules restrict any use of the information to criminally investigate or prosecute any alcohol or drug abuse patient.[facility] HospitalIn the event this information is protected by the Federal Confidentiality of Alcohol and Drug Abuse Patient Records regulations: The Federal rules restrict any use of the information to criminally investigate or prosecute any alcohol or drug abuse patient.[facility] HospitalIn the event this information is protected by the Federal Confidentiality of Alcohol and Drug Abuse Patient Records regulations: The Federal rules restrict any use of the information to criminally investigate or prosecute any alcohol or drug abuse patient.[facility] HospitalIn the event this information is protected by the Federal Confidentiality of Alcohol and Drug Abuse Patient Records regulations: The Federal rules restrict any use of the information to criminally investigate or prosecute any alcohol or drug abuse patient.[facility] HospitalIn the event this information is protected by the Federal Confidentiality of Alcohol and Drug Abuse Patient Records regulations: The Federal rules restrict any use of the information to criminally investigate or prosecute any alcohol or drug abuse patient.[facility] HospitalIn the event this information is protected by the Federal Confidentiality of Alcohol and Drug Abuse Patient Records regulations: The Federal rules restrict any use of the information to criminally investigate or prosecute any alcohol or drug abuse patient.[facility] HospitalIn the event this information is protected by the Federal Confidentiality of Alcohol and Drug Abuse Patient Records regulations: The Federal rules restrict any use of the information to criminally investigate or prosecute any alcohol or drug abuse patient.[facility] HospitalIn the event this information is protected by the Federal Confidentiality of Alcohol and Drug Abuse Patient Records regulations: The Federal rules restrict any use of the information to criminally investigate or prosecute any alcohol or drug abuse patient.[facility] HospitalIn the event this information is protected by the Federal Confidentiality of Alcohol and Drug Abuse Patient Records regulations: The Federal rules restrict any use of the information to criminally investigate or prosecute any alcohol or drug abuse patient.[facility] HospitalIn the event this information is protected by the Federal Confidentiality of Alcohol and Drug Abuse Patient Records regulations: The Federal rules restrict any use of the information to criminally investigate or prosecute any alcohol or drug abuse patient.[facility] HospitalIn the event this information is protected by the Federal Confidentiality of Alcohol and Drug Abuse Patient Records regulations: The Federal rules restrict any use of the information to criminally investigate or prosecute any alcohol or drug abuse patient.[facility] HospitalIn the event this information is protected by the Federal Confidentiality of Alcohol and Drug Abuse Patient Records regulations: The Federal rules restrict any use of the information to criminally investigate or prosecute any alcohol or drug abuse patient.[facility] HospitalIn the event this information is protected by the Federal Confidentiality of Alcohol and Drug Abuse Patient Records regulations: The Federal rules restrict any use of the information to criminally investigate or prosecute any alcohol or drug abuse patient.[facility] HospitalIn the event this information is protected by the Federal Confidentiality of Alcohol and Drug Abuse Patient Records regulations: The Federal rules restrict any use of the information to criminally investigate or prosecute any alcohol or drug abuse patient.[facility] HospitalIn the event this information is protected by the Federal Confidentiality of Alcohol and Drug Abuse Patient Records regulations: The Federal rules restrict any use of the information to criminally investigate or prosecute any alcohol or drug abuse patient.[facility] HospitalIn the event this information is protected by the Federal Confidentiality of Alcohol and Drug Abuse Patient Records regulations: The Federal rules restrict any use of the information to criminally investigate or prosecute any alcohol or drug abuse patient.[facility] HospitalIn the event this information is protected by the Federal Confidentiality of Alcohol and Drug Abuse Patient Records regulations: The Federal rules restrict any use of the information to criminally investigate or prosecute any alcohol or drug abuse patient.[facility] HospitalIn the event this information is protected by the Federal Confidentiality of Alcohol and Drug Abuse Patient Records regulations: The Federal rules restrict any use of the information to criminally investigate or prosecute any alcohol or drug abuse patient.[facility] HospitalIn the event this information is protected by the Federal Confidentiality of Alcohol and Drug Abuse Patient Records regulations: The Federal rules restrict any use of the information to criminally investigate or prosecute any alcohol or drug abuse patient.[facility] HospitalIn the event this information is protected by the Federal Confidentiality of Alcohol and Drug Abuse Patient Records regulations: The Federal rules restrict any use of the information to criminally investigate or prosecute any alcohol or drug abuse patient.[facility] HospitalIn the event this information is protected by the Federal Confidentiality of Alcohol and Drug Abuse Patient Records regulations: The Federal rules restrict any use of the information to criminally investigate or prosecute any alcohol or drug abuse patient.[facility] HospitalIn the event this information is protected by the Federal Confidentiality of Alcohol and Drug Abuse Patient Records regulations: The Federal rules restrict any use of the information to criminally investigate or prosecute any alcohol or drug abuse patient.[facility] HospitalIn the event this information is protected by the Federal Confidentiality of Alcohol and Drug Abuse Patient Records regulations: The Federal rules restrict any use of the information to criminally investigate or prosecute any alcohol or drug abuse patient.[facility] HospitalIn the event this information is protected by the Federal Confidentiality of Alcohol and Drug Abuse Patient Records regulations: The Federal rules restrict any use of the information to criminally investigate or prosecute any alcohol or drug abuse patient.[facility] HospitalIn the event this information is protected by the Federal Confidentiality of Alcohol and Drug Abuse Patient Records regulations: The Federal rules restrict any use of the information to criminally investigate or prosecute any alcohol or drug abuse patient.[facility] HospitalIn the event this information is protected by the Federal Confidentiality of Alcohol and Drug Abuse Patient Records regulations: The Federal rules restrict any use of the information to criminally investigate or prosecute any alcohol or drug abuse patient.[facility] HospitalIn the event this information is protected by the Federal Confidentiality of Alcohol and Drug Abuse Patient Records regulations: The Federal rules restrict any use of the information to criminally investigate or prosecute any alcohol or drug abuse patient.[facility] HospitalIn the event this information is protected by the Federal Confidentiality of Alcohol and Drug Abuse Patient Records regulations: The Federal rules restrict any use of the information to criminally investigate or prosecute any alcohol or drug abuse patient.[facility] HospitalIn the event this information is protected by the Federal Confidentiality of Alcohol and Drug Abuse Patient Records regulations: The Federal rules restrict any use of the information to criminally investigate or prosecute any alcohol or drug abuse patient.[facility] HospitalIn the event this information is protected by the Federal Confidentiality of Alcohol and Drug Abuse Patient Records regulations: The Federal rules restrict any use of the information to criminally investigate or prosecute any alcohol or drug abuse patient.[facility] HospitalIn the event this information is protected by the Federal Confidentiality of Alcohol and Drug Abuse Patient Records regulations: The Federal rules restrict any use of the information to criminally investigate or prosecute any alcohol or drug abuse patient.[facility]ctors HospitalIn the event this information is protected by the Federal Confidentiality of Alcohol and Drug Abuse Patient Records regulations: The Federal rules restrict any use of the information to criminally investigate or prosecute any alcohol or drug abuse patient.[facility] HospitalIn the event this information is protected by the Federal Confidentiality of Alcohol and Drug Abuse Patient Records regulations: The Federal rules restrict any use of the information to criminally investigate or prosecute any alcohol or drug abuse patient.[facility] HospitalIn the event this information is protected by the Federal Confidentiality of Alcohol and Drug Abuse Patient Records regulations: The Federal rules restrict any use of the information to criminally investigate or prosecute any alcohol or drug abuse patient.[facility] HospitalIn the event this information is protected by the Federal Confidentiality of Alcohol and Drug Abuse Patient Records regulations: The Federal rules restrict any use of the information to criminally investigate or prosecute any alcohol or drug abuse patient.[facility] HospitalIn the event this information is protected by the Federal Confidentiality of Alcohol and Drug Abuse Patient Records regulations: The Federal rules restrict any use of the information to criminally investigate or prosecute any alcohol or drug abuse patient.[facility] HospitalIn the event this information is protected by the Federal Confidentiality of Alcohol and Drug Abuse Patient Records regulations: The Federal rules restrict any use of the information to criminally investigate or prosecute any alcohol or drug abuse patient.[facility] HospitalIn the event this information is protected by the Federal Confidentiality of Alcohol and Drug Abuse Patient Records regulations: The Federal rules restrict any use of the information to criminally investigate or prosecute any alcohol or drug abuse patient.[facility] HospitalIn the event this information is protected by the Federal Confidentiality of Alcohol and Drug Abuse Patient Records regulations: The Federal rules restrict any use of the information to criminally investigate or prosecute any alcohol or drug abuse patient.[facility] HospitalIn the event this information is protected by the Federal Confidentiality of Alcohol and Drug Abuse Patient Records regulations: The Federal rules restrict any use of the information to criminally investigate or prosecute any alcohol or drug abuse patient.[facility] HospitalIn the event this information is protected by the Federal Confidentiality of Alcohol and Drug Abuse Patient Records regulations: The Federal rules restrict any use of the information to criminally investigate or prosecute any alcohol or drug abuse patient.[facility] HospitalIn the event this information is protected by the Federal Confidentiality of Alcohol and Drug Abuse Patient Records regulations: The Federal rules restrict any use of the information to criminally investigate or prosecute any alcohol or drug abuse patient.[facility] HospitalIn the event this information is protected by the Federal Confidentiality of Alcohol and Drug Abuse Patient Records regulations: The Federal rules restrict any use of the information to criminally investigate or prosecute any alcohol or drug abuse patient.[facility] HospitalIn the event this information is protected by the Federal Confidentiality of Alcohol and Drug Abuse Patient Records regulations: The Federal rules restrict any use of the information to criminally investigate or prosecute any alcohol or drug abuse patient.[facility] HospitalIn the event this information is protected by the Federal Confidentiality of Alcohol and Drug Abuse Patient Records regulations: The Federal rules restrict any use of the information to criminally investigate or prosecute any alcohol or drug abuse patient.Do[facility] HospitalIn the event this information is protected by the Federal Confidentiality of Alcohol and Drug Abuse Patient Records regulations: The Federal rules restrict any use of the information to criminally investigate or prosecute any alcohol or drug abuse patient.Do[facility] HospitalIn the event this information is protected by the Federal Confidentiality of Alcohol and Drug Abuse Patient Records regulations: The Federal rules restrict any use of the information to criminally investigate or prosecute any alcohol or drug abuse patient.Do[facility] HospitalIn the event this information is protected by the Federal Confidentiality of Alcohol and Drug Abuse Patient Records regulations: The Federal rules restrict any use of the information to criminally investigate or prosecute any alcohol or drug abuse patient.[facility] Reason for Visit (unrecogniz ed section and content) Reason Comments OT Discharge Specialty Diagnoses / Procedures Referred By Contac t Referred To Contact [facility] Diagnoses Fine motor impairment Procedures CONSULT TO [facility] OCCUP[facility] THERAPY EVAL HIGH COMPLEX 60 MINS Laisha Lizarraga, MD PHYSICIAN DERMATOLOGIST.TAX ASSOCIATE ATTORNEY [address] [place] [address] Phone: tel: fax: [facility] [address] [place] [address] Referral ID Status Reason Start Date Expiration Date Visits Requested Visits Authorized [id number] Authorized PCP Requested Referral Auto-Generate d Referral [...] BRAIN STEM W/O CONTRAST MATERIAL Laisha Lizarraga, ROSMERY.TAX ASSOCIATE ATTORNEY [address] [place] [phone] [facility] [place] [address] Referral ID Status Reason Start Date Expiration Date V isits Requested Visits Authorized [id number] Closed Auto-Generate d Referral 11/13/2022 12/13/2023 1 1 Reason Comments Consult Diaphragmatic Hernia Reason Onset Date Comments Refill Request 06/10/2024 Reason Comments Globe Cleaner - Other Chart prep Reason Comments Consult Specialty Diagnoses / Procedures Referred By Contac t Referred To Contact General Surgery Diagnoses Hiatal hernia Gastroesophageal reflux disease, unspecified whether esophagitis present Procedures CONSULT TO GENERAL SURGERY OFFICE/OUTPATIENT [facility] 60 MINUTES Susan Squires MD [address] [facility] [place] [address] Laisha Sheppard MD [address] [place] [address] Referral ID Status Reason Start Date Expiration Date V isits Requested Visits Authorized [id number] Closed PCP Requested Referral 05/17/2024 05/17/2025 [address] Specialty Diagnoses / Procedures Referred By Contac t Referred To Contact CT IMAGING Diagnoses Hiatal hernia Procedures CT ABD/PEL W IVCON CT ABD & PELVIS W/CONTRAST Anila De Paz MD [address] [place] [address] [facility] [place] [address] Referral ID Status Reason Start Date Expiration Date V isits Requested Visits Authorized [id number] Closed Auto-Generate d Referral 06/18/2024 07/18/2025 1 [...] Pre-op evaluation Procedures CONSULT TO CARDIOLOGY OFFICE/OUTPATIENT [facility] 60 MINUTES Anila De Paz MD [address] [place], [place] [phone] Referral ID Status Reason Start Date Expiration Date V isits Requested Visits Authorized [id number] Closed PCP Requested Referral 06/18/2024 06/18/2025 1 1 Reason Comments Consult Paresthesia of both feet/ illegal writing Specialty Diagnoses / Procedures Referred By Contac t Referred To Contact Neurology Diagnoses Paresthesia of both feet Procedures CONSULT TO NEUROLOGY OFFICE/OUTPATIENT [facility] 60 MINUTES Laisha Lizarraga, ROSMERY.TAX ASSOCIATE ATTORNEY [address] [place] [phone] Referral ID Status Reason Start Date Expiration Date V isits Requested Visits Authorized [id number] Closed PCP Requested Referral 07/31/2024 07/01/2025 1 [...] & W/CONTRAST MATERIAL Anila De Paz MD [address] [place], [place] [phone] [facility] [place] [address] Referral ID Status Reason Start Date Expiration Date V isits Requested Visits Authorized [id number] Closed Auto-Generate d Referral 09/03/2024 10/03/2025 1 1 Reason Comments Patient Update Reason Comments Globe Cleaner - Other Update on EUS o rders Reason Comments Preparations For Surgery PACC Reason Onset Date Comments EMG 09/10/2024 Specialty Diagnoses / Procedures Referred By Contac t Referred To Contact [facility] Diagnoses Neuropathy Procedures EMG(NEURO/NI) NERVE CONDUCTION STUDIES 9-10 STUDIES Denice Jacobs PA-C [address] [place] [address] [facility] [place] [phone] Referral ID Status Reason Start Date Expiration Date V isits Requested Visits Authorized [id number] Closed Auto-Generate d Referral 08/06/2024 08/06/2025 1 [...] Anila De Paz MD [address] [place] [address] Phone: tel: fax: [facility] [place] [address] Referral ID Status Reason Start Date Expiration Date V isits Requested Visits Authorized [id number] Closed Auto-Generate d Referral 11/02/2024 12/02/2025 1 1 Reason Onset Date Comments Refill Request 12/16/2024 Reason Comments Abrasion to right forearm x1 day Reason Comments Established Patient Reason Comments Follow Up Specialty Diagnoses / Procedures Referred By Contac t Referred To Contact Diagnoses 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, psychotic disturbance, mood disturbance, or anxiety (HCC) Procedures PROVIDER ORDERED FOLLOW UP OFFICE/OUTPATIENT [facility] 60 MINUTES Laisha Lizarraga, MD PHYSICIAN DERMATOLOGIST.TAX ASSOCIATE ATTORNEY [address] [place] [phone] Phone: tel: fax: Referral ID Status Reason Start Date Expiration Date V isits Requested Visits Authorized [id number] Closed PCP Requested Referral 03/25/2025 12/23/2025 1 1 Reason Onset Date Comments Refill Request 03/30/2025 Reason Comments Opened In Error Reason Onset Date Comments Refill Request 04/25/2025 Reason Comments Laceration Laceration on lower left leg, pt on blood thinners x 8 hrs Care Teams (unrecognized sec tion and content) Transition Assistant Relationship Specialty Start Date End Date Bryant Melendrez MD [address] [place] [address] PCP - General Internal Medicine 11/20/20 Transition Assistant Relationship Specialty Start Date End Date Bryant Melendrez MD [address] [place] [address] PCP - General Internal Medicine 11/20/20 Transition Assistant Relationship Specialty Start Date End Date Chema Perry MD [address] [place] [address] PCP - General Internal Medicine 04/11/22 Team [...] Provider, Referri ng Provider Active Sandra Vincent CLIENT DELIVERY SPECIALIST, CLIENT DELIVERY SPECIALIST-C Attending Provider Active Team Status: Inactive Member [...] Provider, Referri ng Provider Active Jd Gallego PA, PA Attending Provider Active Team Status: Inactive Member Role Status Dates Dr. Chema Perry MD Primary Care Provider Active Jd VALENCIA, PA Attending Provider, Referring Pr ovider Active Team Status: Inactive Member Role Status Dates Dr. Chema Perry MD Primary Care Provider Active Cal Keith MD Emergency Provider Active Transition Assistant Relationship Specialty Start Date End Date Chema Perry MD [address] [place] [address] PCP - General Internal Medicine 04/11/22 Team [...] Dr. Isma Bustamante DO Emergency Provider Active Transition Assistant Relationship Specialty Start Date End Date Chema Perry MD [address] [place] [address] PCP - General Internal Medicine 04/11/22 Team Status: Active Member Role Status Dates Dr. Chema Perry MD Primary Care Provider Active Dr. Rolando Griffith MD Attending Provider Active Team Status: Inactive Member Role Status Dates Dr. Chema Perry MD Primary Care Provider Active Jerri VALENCIA PA Attending Provider, Referr ing Provider Active Team Status: Active Member Role Status Dates Dr. Chema Perry MD Primary Care Provider Active Dr. Rolando Griffith MD Attending Provider Active Jerri VALENCIA PA Referring Provider Active Team Status: Inactive Member Role Status Dates Dr. Chema Perry MD Primary Care Provider Active Dr. Stephanie Brush MD Attending Provider, Referring P rochelle Active Transition Assistant Relationship Specialty Start Date End Date Chema Perry MD [address] [place] [address] PCP - General Internal Medicine 04/11/22 Team Status: Inactive Member Role Status Dates Dr. Chema Perry MD Primary Care Provider Active Dr. Sarbjit Kraus MD Attending Provider, Referr ing Provider Active Transition Assistant Relationship Specialty Start Date End Date Chema Perry MD [address] [place] [address] PCP - General Internal Medicine 04/11/22 Stephanie Brush [address] [facility], [place] [id number] Referring Ophthalmology 07/23/23 Team Status: Active Member Role Status Dates Dr. Chema Perry MD Primary Care Provider Active Dr. Porfirio Bloom MD Attending Provider, Referring Provider Active Transition Assistant Relationship Specialty Start Date End Date Chema Perry MD [address] [facility] [place] [address] PCP - General Internal Medicine 04/11/22 Stephanie Brush [address] [place] [address] Referring Ophthalmology 07/23/23 Transition Assistant Relationship Specialty Start Date End Date Chema Perry MD [address] [facility] [place] [address] PCP - General Internal Medicine 04/11/22 Stephanie Brush [address] [place] [address] Referring Ophthalmology 07/23/23 Team Status: Inactive Member Role Status Dates Dr. Chema Perry MD Primary Care Provider, Referri ng Provider Active aTmiko Ku CLIENT DELIVERY SPECIALIST, CLIENT DELIVERY SPECIALIST-C Attending Provider Active Team Status: Inactive Member [...] MD Primary Care Provider Active Tamiko Ku CLIENT DELIVERY SPECIALIST, CLIENT DELIVERY SPECIALIST-C Attending Provider Active Team Status: Inactive Member Role Status Dates Dr. Chema Perry MD Primary Care Provider Active Tamiko Ku CLIENT DELIVERY SPECIALIST, CLIENT DELIVERY SPECIALIST-C Attending Provider, Referring P rovider Active Transition Assistant Relationship Specialty Start Date End Date Chema Perry MD [address] [place], [place] [address] PCP - General Internal Medicine 04/11/22 Stephanie Brush [address] [facility] [place], [place] [address] Referring Ophthalmology 07/23/23 Transition Assistant Relationship Specialty Start Date End Date Chema Perry MD [address] [place], [place] 447491 PCP - General Internal Medicine 04/11/22 Stephanie Brush [address] [facility], [place] 3[address] Referring Ophthalmology 07/23/23 Transition Assistant Relationship Specialty Start Date End Date Chema Perry MD [address] [place] [address] PCP - General Internal Medicine 04/11/22 Stephanie Brush [address] [place] [address] Referring Ophthalmology 07/23/23 Porfirio Carreon [address] [place] [phone] Referring Orthopedics 02/10/24 Transition Assistant Relationship Specialty Start Date End Date Chema Perry MD [address] [place], [place] [address] PCP - General Internal Medicine 04/11/22 Stephanie Brush [address] [place] [address] Referring Ophthalmology 07/23/23 Porfirio Carreon [address] [place] [phone] Referring Orthopedics 02/10/24 Transition Assistant Relationship Specialty Start Date End Date Chema Perry MD [address] [place] [address] PCP - General Internal Medicine 04/11/22 Stephanie Brush [address] [facility] [place] [address] Referring Ophthalmology 07/23/23 Porfirio Carreon [address] [place] [phone] Referring Orthopedics 02/10/24 Transition Assistant Relationship Specialty Start Date End Date Chema Perry MD [address] [place], [place] [address] PCP - General Internal Medicine 04/11/22 Stephanie Brush MD [address] [facility] [place], [place] [address] Referring Ophthalmology 07/23/23 Porfirio Carreon [address] [place] [phone] Referring Orthopedics 02/10/24 Transition Assistant Relationship Specialty Start Date End Date Chema Perry MD [address] [place], [place] [id number] PCP - General Internal Medicine 04/11/22 Transition Assistant Relationship Specialty Start Date End Date Chema Perry MD [address] [place] [address] PCP - General Internal Medicine 04/11/22 Stephanie Brush MD [address] [facility] [place], [place] [address] Referring Ophthalmology 07/23/23 Porfirio Carreon [address] [place] [phone] Referring Orthopedics 02/10/24 Transition Assistant Relationship Specialty Start Date End Date Chema Perry MD [address] [place] [address] PCP - General Internal Medicine 04/11/22 Stephanie Brush MD [address] [facility] [place], [place] [address] Referring Ophthalmology 07/23/23 Porfirio Carreon [address] [place] [phone] Referring Orthopedics 02/10/24 Transition Assistant Relationship Specialty Start Date End Date Chema Perry MD [address] [place] [address] PCP - General Internal Medicine 04/11/22 Stephanie Brush MD [address] [facility] [place] [address] Referring Ophthalmology 07/23/23 Porfirio Carreon [address] [place] [phone] Referring Orthopedics 02/10/24 Transition Assistant Relationship Specialty Start Date End Date Chema Perry MD [address] [place] [address] PCP - General Internal Medicine 04/11/22 Stephanie Brush MD [address] [facility], [place] [id number] Referring Ophthalmology 07/23/23 Porfirio Carreon [address] [facility] [address] [place] [phone] Referring Orthopedics 02/10/24 Transition Assistant Relationship Specialty Start Date End Date Chema Perry MD [address] [place], [place] [address] PCP - General Internal Medicine 04/11/22 Stephanie Brush MD [address] [facility] [place] [address] Referring Ophthalmology 07/23/23 Porfirio Carreon [address] [facility] [address] [place] [phone] Referring Orthopedics 02/10/24 Transition Assistant Relationship Specialty Start Date End Date Chema Perry MD [address] [place], [place] 7[address] PCP - General Internal Medicine 04/11/22 Stephanie Brush MD [address] [facility], [place] [address]231 Referring Ophthalmology 07/23/23 Porfirio Carreon [address] [place] [phone] Referring Orthopedics 02/10/24 Transition Assistant Relationship Specialty Start Date End Date Chema Perry MD [address] [place], [place] [address] PCP - General Internal Medicine 04/11/22 Stephanie Brush MD [address] [facility] [place] [address] Referring Ophthalmology 07/23/23 Porfirio Carreon [address] [place] [phone] Referring Orthopedics 02/10/24 Transition Assistant Relationship Specialty Start Date End Date Chema Perry MD [address] [place], [place] [address] PCP - General Internal Medicine 04/11/22 Stephanie Brush MD [address] [facility] [place] [address] Referring Ophthalmology 07/23/23 Porfirio Carreon [address] [place] [phone] Referring Orthopedics 02/10/24 Transition Assistant Relationship Specialty Start Date End Date Chema Perry MD [address] [place] [address] PCP - General Internal Medicine 04/11/22 Stephanie Brush MD [address] [facility] [place] [address] Referring Ophthalmology 07/23/23 Porfirio Carreon [address] [place] [phone] Referring Orthopedics 02/10/24 Transition Assistant Relationship Specialty Start Date End Date Chema Perry MD [address] [place] [address] PCP - General Internal Medicine 04/11/22 Stephanie Brush MD [address] [facility] [place] [address] Referring Ophthalmology 07/23/23 Porfirio Carreon [address] [place] [phone] Referring Orthopedics 02/10/24 Transition Assistant Relationship Specialty Start Date End Date Chema Perry MD [address] [place] [address] PCP - General Internal Medicine 04/11/22 Stephanie Brush MD [address] [facility] [place] [address] Referring Ophthalmology 07/23/23 Porfirio Carreon [address] [place] [phone] Referring Orthopedics 02/10/24 Transition Assistant Relationship Specialty Start Date End Date Chema Perry MD [address] [place] [address] PCP - General Internal Medicine 04/11/22 Stephanie Brush MD [address] [facility] [place] [address] Referring Ophthalmology 07/23/23 Porfirio Carreon [address] [place] [phone] Referring Orthopedics 02/10/24 Transition Assistant Relationship Specialty Start Date End Date Chema Perry MD [address] [place] [address] PCP - General Internal Medicine 04/11/22 Stephanie Brush MD [address] [facility] [place] [address] Referring Ophthalmology 07/23/23 Porfirio Carreon [address] [place] [phone] Referring Orthopedics 02/10/24 Transition Assistant Relationship Specialty Start Date End Date Chema Perry MD [address] [place] [address] PCP - General Internal Medicine 04/11/22 Stephanie Brush MD [address] [facility] [place] [address] Referring Ophthalmology 07/23/23 Porfirio Carreon [address] [place] [phone] Referring Orthopedics 02/10/24 [place] [address] [place], [place] [phone] Replanting Machine Operator Cardiology 08/03/24 Transition Assistant Relationship Specialty Start Date End Date Chema Perry MD [address] [place], [place] 158981 PCP - General Internal Medicine 04/11/22 Stephanie Brush MD [address] [place], [place] [address]41 Referring Ophthalmology 07/23/23 Porfirio Carreon [address] [place] [phone] Referring Orthopedics 02/10/24 [place] [address] [place] [address] Replanting Machine Operator Cardiology 08/03/24 Transition Assistant Relationship Specialty Start Date End Date Chema Perry MD [address] [place] [address] PCP - General Internal Medicine 04/11/22 Stephanie Brush MD [address] [place], [place] 4[address] Referring Ophthalmology 07/23/23 Porfirio Carreon [address] [place] [phone] Referring Orthopedics 02/10/24 [place] [address] [place] [address] Replanting Machine Operator Cardiology 08/03/24 Transition Assistant Relationship Specialty Start Date End Date Chema Perry MD [address] [place] [address] PCP - General Internal Medicine 04/11/22 Stephanie Brush MD [address] [place] [address] Referring Ophthalmology 07/23/23 Porfirio Carreon [address] [phone] Referring Orthopedics 02/10/24 [place] [address] [place] [address] Replanting Machine Operator Cardiology 08/03/24 Transition Assistant Relationship Specialty Start Date End Date Chema Perry MD [address] [place] [address] PCP - General Internal Medicine 04/11/22 Stephanie Brush MD [address] [place] [address] Referring Ophthalmology 07/23/23 Porfirio Carreon [address] [facility] [address] [place] [phone] Referring Orthopedics 02/10/24 [place] [address] [place], [place] [phone] Replanting Machine Operator Cardiology 08/03/24 Transition Assistant Relationship Specialty Start Date End Date Chema Perry MD [address] [place] [address] PCP - General Internal Medicine 04/11/22 Stephanie Brush MD [address] [place] [address] Referring Ophthalmology 07/23/23 Porfirio Carreon [address] [place] [phone] Referring Orthopedics 02/10/24 [place] [address] [place], [place] [phone] Replanting Machine Operator Cardiology 08/03/24 Transition Assistant Relationship Specialty Start Date End Date Chema Perry MD [address] [place] [address] PCP - General Internal Medicine 04/11/22 Stephanie Brush MD [address] [place], [place] 611561 Referring Ophthalmology 07/23/23 Porfirio Carreon [address] [place] [phone] Referring Orthopedics 02/10/24 [place] [address] [place], [place] [phone] Replanting Machine Operator Cardiology 08/03/24 Transition Assistant Relationship Specialty Start Date End Date Chema Perry MD [address] [place], [place] 920531 PCP - General Internal Medicine 04/11/22 Stephanie Brush MD [address] [facility] [place] [place] [address] Referring Ophthalmology 07/23/23 Porfirio Carreon [address] [facility] [address] [place] [phone] Referring Orthopedics 02/10/24 [place] [address] [place] [address] Replanting Machine Operator Cardiology 08/03/24 Transition Assistant Relationship Specialty Start Date End Date Chema Perry MD [address] [place], [place] 858351 PCP - General Internal Medicine 04/11/22 Stephanie Brush MD [address] [facility] [place] [address] Referring Ophthalmology 07/23/23 Porfirio Carreon [address] [phone] Referring Orthopedics 02/10/24 [place] [address] [place] [address] Replanting Machine Operator Cardiology 08/03/24 Transition Assistant Relationship Specialty Start Date End Date Chema Perry MD [address] [place], [place] 386621 PCP - General Internal Medicine 04/11/22 Stephanie Brush MD [address] [place], [place] 930551 Referring Ophthalmology 07/23/23 Porfirio Carreon [address] [place] [phone] Referring Orthopedics 02/10/24 [place] [address] [place] [address] Replanting Machine Operator Cardiology 08/03/24 Transition Assistant Relationship Specialty Start Date End Date Chema Perry MD [address] [place] [address] PCP - General Internal Medicine 04/11/22 Stephanie Brush MD [address] [place], [place] 251131 Referring Ophthalmology 07/23/23 Porfirio Carreon [address] [phone] Referring Orthopedics 02/10/24 [place] [address] [place] [address] Replanting Machine Operator Cardiology 08/03/24 Transition Assistant Relationship Specialty Start Date End Date Chema Perry MD [address] [place] [address] PCP - General Internal Medicine 04/11/22 Stephanie Brush MD [address] [place] [address] Referring Ophthalmology 07/23/23 Porfirio Carreon [address] [facility] 2 [place] [phone] Referring Orthopedics 02/10/24 [place] [address] [place] [address] Replanting Machine Operator Cardiology 08/03/24 Transition Assistant Relationship Specialty Start Date End Date Chema Perry MD [address] [place] [address] PCP - General Internal Medicine 04/11/22 Stephanie Brush MD [address] [place] [address] Referring Ophthalmology 07/23/23 Porfirio Carreon [address] [phone] Referring Orthopedics 02/10/24 [place] [address] [place] [address] Replanting Machine Operator Cardiology 08/03/24 Transition Assistant Relationship Specialty Start Date End Date Chema Perry MD [address] [place] [address] PCP - General Internal Medicine 04/11/22 Stephanie Brush MD [address] [place], [place] 592131 Referring Ophthalmology 07/23/23 Porfirio Carreon [address] [place] [phone] Referring Orthopedics 02/10/24 [place] [address] [place] [address] Replanting Machine Operator Cardiology 08/03/24 Transition Assistant Relationship Specialty Start Date End Date Chema Perry MD [address] [place], [place] 389251 PCP - General Internal Medicine 04/11/22 Stephanie Brush MD [address] [place] [address] Referring Ophthalmology 07/23/23 Porfirio Carreon [address] [facility] 2 [place] [phone] Referring Orthopedics 02/10/24 [place] [address] [place] [address] Replanting Machine Operator Cardiology 08/03/24 Transition Assistant Relationship Specialty Start Date End Date Chema Perry MD [address] [place] [address] PCP - General Internal Medicine 04/11/22 Stephanie Brush MD [address] [place] [address] Referring Ophthalmology 07/23/23 Porfirio Carreon [address] [place] [phone] Referring Orthopedics 02/10/24 [place] [address] [place] [address] Replanting Machine Operator Cardiology 08/03/24 Transition Assistant Relationship Specialty Start Date End Date Chema Perry MD [address] [place], [place] 994551 PCP - General Internal Medicine 04/11/22 Stephanie Brush MD [address] [place], [place] 213111 Referring Ophthalmology 07/23/23 Porfirio Carreon [address] [place] [phone] Referring Orthopedics 02/10/24 [place] [address] [place] [address] Replanting Machine Operator Cardiology 08/03/24 Transition Assistant Relationship Specialty Start Date End Date Chema Perry MD [address] [place], [place] 445041 PCP - General Internal Medicine 04/11/22 Stephanie Brush MD [address] [place], [place] 095081 Referring Ophthalmology 07/23/23 Porfirio Carreon [address] [place] [phone] Referring Orthopedics 02/10/24 [place] [address] [place] [address] Replanting Machine Operator Cardiology 08/03/24 Transition Assistant Relationship Specialty Start Date End Date Chema Perry MD [address] [place], [place] 179571 PCP - General Internal Medicine 04/11/22 Stephanie Brush MD [address] [place], [place] 637221 Referring Ophthalmology 07/23/23 Porfirio Carreon [address] [phone] Referring Orthopedics 02/10/24 [place] [address] [place] [address] Replanting Machine Operator Cardiology 08/03/24 Transition Assistant Relationship Specialty Start Date End Date Chema Perry MD [address] [place], [place] 764071 PCP - General Internal Medicine 04/11/22 Stephanie Brush MD [address] [place], [place] 081751 Referring Ophthalmology 07/23/23 Porfirio Carreon [address] [place] [phone] Referring Orthopedics 02/10/24 [place] [address] [place] [address] Replanting Machine Operator Cardiology 08/03/24 Transition Assistant Relationship Specialty Start Date End Date Chema Perry MD [address] [place] [address] PCP - General Internal Medicine 04/11/22 Stephanie Brush MD [address] [place], [place] 116561 Referring Ophthalmology 07/23/23 Porfirio Carreon [address] [place] [phone] Referring Orthopedics 02/10/24 [place] [address] [place] [address] Replanting Machine Operator Cardiology 08/03/24 Transition Assistant Relationship Specialty Start Date End Date Chema Perry MD [address] [place], [place] 809401 PCP - General Internal Medicine 04/11/22 Stephanie Brush MD [address] [place], [place] 161601 Referring Ophthalmology 07/23/23 Porfirio Carreon [address] [place] [phone] Referring Orthopedics 02/10/24 [place] [address] [place], [place] 7940136 Replanting Machine Operator Cardiology 08/03/24 Transition Assistant Relationship Specialty Start Date End Date Chema Perry MD [address] [place] [address] PCP - General Internal Medicine 04/11/22 10/17/24 Chema Perry MD [address] [facility] 101 [place], [place] 203121 PCP - General Internal Medicine 10/18/24 Stephanie Brush MD [address] [place], [place] 814231 Referring Ophthalmology 07/23/23 Porfirio Carreon DO [address] [facility] 2 [place] [phone] Referring Orthopedics 02/10/24 [place] [address] [place] [address] Replanting Machine Operator Cardiology 08/03/24 Transition Assistant Relationship Specialty Start Date End Date Chema Perry MD [address] [facility] [address] [place], [place] 108361 PCP - General Internal Medicine 10/18/24 Stephanie Brush MD [address] [place], [place] 742611 Referring Ophthalmology 07/23/23 Porfirio Carreon DO [address] [facility] 2 [place] [phone] Referring Orthopedics 02/10/24 [place] [address] [place] [address] Replanting Machine Operator Cardiology 08/03/24 Transition Assistant Relationship Specialty Start Date End Date Chema Perry MD [address] [facility] [address] [place], [place] 307581 PCP - General Internal Medicine 10/18/24 Stephanie Brush MD [address] [place], [place] 601651 Referring Ophthalmology 07/23/23 Porfirio Carreon DO [address] [facility] [place] [phone] Referring Orthopedics 02/10/24 [place] [address] [place] [address] Replanting Machine Operator Cardiology 08/03/24 Transition Assistant Relationship Specialty Start Date End Date Chema Perry MD [address] [facility] [address] [place], [place] 668791 PCP - General Internal Medicine 10/18/24 Stephanie Brush MD [address] [place], [place] 585401 Referring Ophthalmology 07/23/23 Porfirio Carreon DO [address] [employer] [facility] 2 [place] [phone] Referring Orthopedics 02/10/24 [place] [address] [place] [address] Replanting Machine Operator Cardiology 08/03/24 Transition Assistant Relationship Specialty Start Date End Date Chema Perry MD [address] [facility] [address] [place] [address] PCP - General Internal Medicine 10/18/24 Stephanie Brush MD [address] [place], [place] 972801 Referring Ophthalmology 07/23/23 Porfirio Carreon DO [address] [facility] 2 [place] [phone] Referring Orthopedics 02/10/24 [place] [address] [place] [address] Replanting Machine Operator Cardiology 08/03/24 Transition Assistant Relationship Specialty Start Date End Date Chema Perry MD [address] [facility] 101 [place], [place] 064031 PCP - General Internal Medicine 10/18/24 Stephanie Brush MD [address] [place], [place] 433681 Referring Ophthalmology 07/23/23 Porfirio Carreon DO [address] [facility] 2 [place] [phone] Referring Orthopedics 02/10/24 [place] [address] [place] [address] Replanting Machine Operator Cardiology 08/03/24 Transition Assistant Relationship Specialty Start Date End Date Chema Perry MD [address] [facility] [address] [place] [address] PCP - General Internal Medicine 10/18/24 Stephanie Brush MD [address] [place], [place] 072861 Referring Ophthalmology 07/23/23 Porfirio Carreon DO [address] [facility] 2 [place] [phone] Referring Orthopedics 02/10/24 [place] [address] [place], [place] 1008236 Replanting Machine Operator Cardiology 08/03/24 Transition Assistant Relationship Specialty Start Date End Date Chema Perry MD [address] [facility] [address] [place] [address] PCP - General Internal Medicine 10/18/24 Stephanie Brush MD [address] [place], [place] 019281 Referring Ophthalmology 07/23/23 Porfirio Carreon DO [address] [facility] 2 [place] [phone] Referring Orthopedics 02/10/24 [place] [address] [place] [address] Replanting Machine Operator Cardiology 08/03/24 Transition Assistant Relationship Specialty Start Date End Date Chema Perry MD [address] [facility] [address] [place] [address] PCP - General Internal Medicine 10/18/24 Stephanie Brush MD [address] [place] [address] Referring Ophthalmology 07/23/23 Porfirio Carreon DO [address] [phone] Referring Orthopedics 02/10/24 [place] [address] [place] [address] Replanting Machine Operator Cardiology 08/03/24 Transition Assistant Relationship Specialty Start Date End Date Chema Perry MD [address] [facility] [address] [place] [address] PCP - General Internal Medicine 10/18/24 Stephanie Brush MD [address] [place] [address] Referring Ophthalmology 07/23/23 Porfirio Carreon DO [address] [phone] Referring Orthopedics 02/10/24 [place] [address] [place] [address] Replanting Machine Operator Cardiology 08/03/24 Transition Assistant Relationship Specialty Start Date End Date Chema Perry MD [address] [facility] [address] [place] [address] PCP - General Internal Medicine 10/18/24 Stephanie Brush MD [address] [place] [address] Referring Ophthalmology 07/23/23 Porfirio Carreon DO [address] [facility] [place] [phone] Referring Orthopedics 02/10/24 [place] [address] [place] [address] Replanting Machine Operator Cardiology 08/03/24 Transition Assistant Relationship Specialty Start Date End Date Chema Perry MD [address] 502071 PCP - General Internal Medicine 10/18/24 Stephanie Brush MD [address] [place] [address] Referring Ophthalmology 07/23/23 Porfirio Carreon DO [address] [facility] 2 [place] [phone] Referring Orthopedics 02/10/24 [place] [address] [place] [address] Replanting Machine Operator Cardiology 08/03/24 Transition Assistant Relationship Specialty Start Date End Date Chema Perry MD [address] [facility] [address] [place] [address] PCP - General Internal Medicine 10/18/24 Stephanie Brush MD [address] [place], [place] 920151 Referring Ophthalmology 07/23/23 Porfirio Carreon DO [address] [place] [address] Referring Orthopedics 02/10/24 [place] [address] [place], [place] 7122736 Replanting Machine Operator Cardiology 08/03/24 Team Status: Active [...] 2024 End: October 22, 2024 Sandra Vincent NP, CLIENT DELIVERY SPECIALIST-C Attending Provider Active Start: October 22, 2024 [...] November 09, 2024 End: November 09, 2024 Transition Assistant Relationship Specialty Start Date End Date Chema Perry MD [address] [facility] [address] [place], [place] 765121 PCP - General Internal Medicine 10/18/24 Stephanie Brush MD [address] [place], [place] 667881 Referring Ophthalmology 07/23/23 Porfirio Carreon DO [address] [facility] 2 [place] [phone] Referring Orthopedics 02/10/24 [place] [address] [place], [place] 0180536 Replanting Machine Operator Cardiology 08/03/24 Transition Assistant Relationship Specialty Start Date End Date Chema Perry MD [address] [facility] [address] [place], [place] 9[address]41 PCP - General Internal Medicine 10/18/24 Stephanie Brush MD [address] [place], [place] 682261 Referring Ophthalmology 07/23/23 Porfirio Carreon DO [address] [facility] 2 [place] [phone] Referring Orthopedics 02/10/24 [place] [address] [place] [address] Replanting Machine Operator Cardiology 08/03/24 Transition Assistant Relationship Specialty Start Date End Date Chema Perry MD [address] [facility] [address] [place] [address] PCP - General Internal Medicine 10/18/24 Stephanie Brush MD [address] [place] [address] Referring Ophthalmology 07/23/23 Porfirio Carreon DO [address]373 [facility] 2 [place] [phone] Referring Orthopedics 02/10/24 [place] [address] [place] [address] Replanting Machine Operator Cardiology 08/03/24 Transition Assistant Relationship Specialty Start Date End Date Chema Perry MD [address] [facility] [address] [place] [address] PCP - General Internal Medicine 10/18/24 Stephanie Brush MD [address] [place] [address] Referring Ophthalmology 07/23/23 Porfirio Carreon DO [facility] [facility] [place] [phone] Referring Orthopedics 02/10/24 [place] [address] [place] [address] Replanting Machine Operator Cardiology 08/03/24 Team Status: Active [...] t: February 06, 2025 Dr. Vincent Camp DO Attending Provider Active Start: February 06, 2025 Team Status: Inactive Member Role Status Dates Dr. Chema Perry MD Primary Care Provider Active Start: February 06, 2025 End: February 08, 2025 Dr. Kana Whitt DO Emergency Provider Active Start: February 06, 2025 End: February 08, 2025 Dr. Vincent Camp DO Admit Provider Active Star t: February 06, 2025 End: February 08, 2025 Dr. Vincent Camp DO Attending Provider Active Start: February 06, 2025 End: February 08, 2025 Damien Burleson MD Other Provider Active Start: February 06, 2025 End: February 08, 2025 Team Status: Active Member Role Status Dates Dr. Chema Perry MD Primary Care Provider Active Start: February 06, 2025 Dr. Kana Whitt DO Emergency Provider Active Start: February 06, 2025 Dr. Vincent Camp DO Admit Provider Active Star t: February 06, 2025 Dr. Vincent Camp DO Attending Provider Active Start: February 06, 2025 Dr. Vincent Camp DO Other Provider Active Star t: February 06, 2025 Damien Burleson MD Other Provider Active Start: February 06, 2025 Team Status: Active Member Role Status Dates Dr. Chema Perry MD Primary Care Provider Active Start: February 07, 2025 Dr. Kana Whitt DO Emergency Provider Active Start: February 07, 2025 Dr. Vincent Camp DO Admit Provider Active Star t: February 07, 2025 Dr. Vincent Camp DO Attending Provider Active Start: February 07, 2025 Dr. Vincent Camp DO Other Provider Active Star t: February 07, 2025 Damien Burleson MD Other Provider Active Start: February 07, 2025 Team Status: Active Member Role Status Dates Dr. Chema Perry MD Primary Care Provider Active Start: February 07, 2025 Dr. Kana Whitt DO Emergency Provider Active Start: February 07, 2025 Dr. Vincent Camp DO Admit Provider Active Star t: February 07, 2025 Dr. Vincent Camp DO Other Provider Active Star t: February 07, 2025 Damien Burleson MD Attending Provider Active St art: February 07, 2025 Damien Burleson MD Other Provider Active Start: February 07, 2025 Team Status: Active Member Role Status Dates Dr. Chema Perry MD Primary Care Provider Active Start: February 08, 2025 Dr. Kana Whitt DO Emergency Provider Active Start: February 08, 2025 Dr. Vincent Camp DO Admit Provider Active Star t: February 08, 2025 Dr. Vincent Camp DO Attending Provider Active Start: February 08, 2025 Dr. Vincent Camp DO Other Provider Active Star t: February 08, 2025 Damien Burleson MD Other Provider Active Start: February 08, 2025 Team Status: Active Member Role/Relationship Status Dates Dr. Chema Perry MD Primary Care Provider Active Team Status: Inactive Member Role/Relationship Status Dates Dr. Chema Perry MD Primary Care Provider Active Start: November 09, 2024 End: November 09, 2024 Dr. Chema Perry MD Attending Provider Active Start: November 09, 2024 End: November 09, 2024 Dr. Chema Perry MD Referring Provider Active Start: November 09, 2024 End: November 09, 2024 Team Status: Active Member Role/Relationship Status Dates Dr. Chema Perry MD Primary Care Provider Active Start: February 01, 2025 Dr. Chema Perry MD Attending Provider Active Start: February 01, 2025 Dr. Chema Perry MD Referring Provider Active Start: February 01, 2025 Team Status: Inactive Member Role/Relationship Status Dates Dr. Chema Perry MD Primary Care Provider Active Start: February 03, 2025 End: February 03, 2025 Dr. Isma Bustamante DO Attending Provider Active Start: February 03, 2025 End: February 03, 2025 Dr. Isma Bustamante DO Emergency Provider Active Start: February 03, 2025 End: February 03, 2025 Team Status: Active Member Role/Relationship Status Dates Dr. Chema Perry MD Primary Care Provider Active Start: February 06, 2025 Dr. Kana Whitt DO Emergency Provider Active Start: February 06, 2025 Damien Burleson MD Attending Provider Active St art: February 06, 2025 Team Status: Inactive Member Role/Relationship Status Dates Dr. Chema Perry MD Primary Care Provider Active Start: February 06, 2025 End: February 08, 2025 Dr. Kana Whitt DO Emergency Provider Active Start: February 06, 2025 End: February 08, 2025 Dr. Vincent Camp DO Admit Provider Active Star t: February 06, 2025 End: February 08, 2025 Dr. Vincent Camp DO Attending Provider Active Start: February 06, 2025 End: February 08, 2025 Damien Burleson MD Other Provider Active Start: February 06, 2025 End: February 08, 2025 Team Status: Active Member Role/Relationship Status Dates Dr. Chema Perry MD Primary Care Provider Active Start: February 06, 2025 Dr. Kana Whitt DO Emergency Provider Active Start: February 06, 2025 Dr. Vincent Camp DO Admit Provider Active Star t: February 06, 2025 Dr. Vincent Camp DO Attending Provider Active Start: February 06, 2025 Dr. Vincent Camp DO Other Provider Active Star t: February 06, 2025 Damien Burleson MD Other Provider Active Start: February 06, 2025 Team Status: Active Member Role/Relationship Status Dates Dr. Chema Perry MD Primary Care Provider Active Start: February 07, 2025 Dr. Kana Whitt DO Emergency Provider Active Start: February 07, 2025 Dr. Vincent Camp DO Admit Provider Active Star t: February 07, 2025 Dr. Vincent Camp DO Attending Provider Active Start: February 07, 2025 Dr. Vincent Camp DO Other Provider Active Star t: February 07, 2025 Damien Burleson MD Other Provider Active Start: February 07, 2025 Team Status: Active Member Role/Relationship Status Dates Dr. Chema Perry MD Primary Care Provider Active Start: February 07, 2025 Dr. Kana Whitt DO Emergency Provider Active Start: February 07, 2025 Dr. Vincent Camp DO Admit Provider Active Star t: February 07, 2025 Dr. Vincent Camp DO Other Provider Active Star t: February 07, 2025 Damien Burleson MD Attending Provider Active St art: February 07, 2025 Damien Burleson MD Other Provider Active Start: February 07, 2025 Team Status: Active Member Role/Relationship Status Dates Dr. Chema Perry MD Primary Care Provider Active Start: February 07, 2025 End: February 07, 2025 Dr. Rolando Griffith MD Attending Provider Active S tart: February 07, 2025 End: February 07, 2025 Dr. Vincent Camp DO Referring Provider Active Start: February 07, 2025 End: February 07, 2025 Team Status: Active Member Role/Relationship Status Dates Dr. Chema Perry MD Primary Care Provider Active Start: February 08, 2025 Dr. Kana Whitt DO Emergency Provider Active Start: February 08, 2025 Dr. Vincent Camp DO Admit Provider Active Star t: February 08, 2025 Dr. Vincent Camp DO Attending Provider Active Start: February 08, 2025 Dr. Vincent Camp DO Other Provider Active Star t: February 08, 2025 Damien Burleson MD Other Provider Active Start: February 08, 2025 Team Status: Active Member Role/Relationship Status Dates Dr. Chema Perry MD Primary Care Provider Active Start: February 10, 2025 Bryant BOSE MD Attending Provider Active Start: February 10, 2025 Team Status: Active Member Role/Relationship Status Dates Dr. Chema Perry MD Primary Care Provider Active Start: February 14, 2025 Susana BOSE NP-C Attending Provider Active Start: February 14, 2025 Team Status: Active Member Role/Relationship Status Dates Dr. Chema Perry MD Primary Care Provider Active Start: February 22, 2025 Susana BOSE NP-C Attending Provider Active Start: February 22, 2025 Team Status: Active Member Role/Relationship Status Dates Dr. Chema Perry MD Primary Care Provider Active Start: February 22, 2025 Dr. Chema Perry MD Referring Provider Active Start: February 22, 2025 Damien Burleson MD Attending Provider Active St art: February 22, 2025 Team Status: Inactive Member Role/Relationship Status Dates Dr. Chema Perry MD Primary Care Provider Active Start: February 22, 2025 End: February 22, 2025 Dr. Rolando Griffith MD Attending Provider Active S tart: February 22, 2025 End: February 22, 2025 Team Status: Inactive Member Role/Relationship Status Dates Dr. Chema Perry MD Primary Care Provider Active Start: February 22, 2025 End: February 22, 2025 Dr. Chema Perry MD Referring Provider Active Start: February 22, 2025 End: February 22, 2025 Damien Burleson MD Attending Provider Active St art: February 22, 2025 End: February 22, 2025 Team Status: Active Member Role/Relationship Status Dates Dr. Chema Perry MD Primary Care Provider Active Start: February 06, 2025 Dr. Kana Whitt DO Emergency Provider Active Start: February 06, 2025 Damien Burleson MD Attending Provider Active St art: February 06, 2025 Dr. Vincent Camp DO Referring Provider Active Start: February 06, 2025 Team Status: Inactive Member Role/Relationship Status Dates Dr. Chema Perry MD Primary Care Provider Active Start: February 09, 2025 End: February 09, 2025 Susana Calderon NP CLIENT DELIVERY SPECIALIST-C Attending Provider Active Start: February 09, 2025 End: February 09, 2025 Team Status: Active Member Role/Relationship Status Dates Dr. Chema Perry MD Primary Care Provider Active Start: February 10, 2025 Bryant BOSE MD Attending Provider Active Start: February 10, 2025 Team Status: Active Member Role/Relationship Status Dates Dr. Chema Perry MD Primary Care Provider Active Start: February 14, 2025 LUKAS RussC Attending Provider Active Start: February 14, 2025 Team Status: Active Member Role/Relationship Status Dates Dr. Chema Perry MD Primary Care Provider Active Start: February 22, 2025 Susana BOSE NP-C Attending Provider Active Start: February 22, 2025 Team Status: Inactive Member Role/Relationship Status Dates Dr. Chema Perry MD Primary Care Provider Active Start: February 22, 2025 End: February 22, 2025 Dr. Chema Perry MD Referring Provider Active Start: February 22, 2025 End: February 22, 2025 Damien Burleson MD Attending Provider Active St art: February 22, 2025 End: February 22, 2025 Team Status: Inactive Member Role/Relationship Status Dates Dr. Chema Perry MD Primary Care Provider Active Start: February 22, 2025 End: February 22, 2025 Dr. Rolando Griffith MD Attending Provider Active S tart: February 22, 2025 End: February 22, 2025 Team Status: Inactive Member Role/Relationship Status Dates Dr. Chema Perry MD Primary Care Provider Active Start: February 10, 2025 End: February 10, 2025 Susana Calderon NP CLIENT DELIVERY SPECIALIST-C Attending Provider Active Start: February 10, 2025 End: February 10, 2025 Team Status: Active Member Role/Relationship Status Dates Dr. Chema Perry MD Primary Care Provider Active Start: February 14, 2025 Susana BOSE NP-C Attending Provider Active Start: February 14, 2025 Team Status: Active Member Role/Relationship Status Dates Dr. Chema Perry MD Primary Care Provider Active Start: February 22, 2025 Susana BOSE CLIENT DELIVERY SPECIALIST-C Attending Provider Active Start: February 22, 2025 Team Status: Inactive Member Role/Relationship Status Dates Dr. Chema Perry MD Primary Care Provider Active Start: February 22, 2025 End: February 22, 2025 Dr. Chema Perry MD Referring Provider Active Start: February 22, 2025 End: February 22, 2025 Damien Burleson MD Attending Provider Active St art: February 22, 2025 End: February 22, 2025 Team Status: Inactive Member Role/Relationship Status Dates Dr. Chema Perry MD Primary Care Provider Active Start: February 22, 2025 End: February 22, 2025 Dr. Roladno Griffith MD Attending Provider Active S tart: February 22, 2025 End: February 22, 2025 Team Status: Inactive Member Role/Relationship Status Dates Dr. Chema Perry MD Primary Care Provider Active Start: February 11, 2025 End: February 11, 2025 Susana Calderon NP CLIENT DELIVERY SPECIALIST-C Attending Provider Active Start: February 11, 2025 End: February 11, 2025 Team Status: Active Member Role/Relationship Status Dates Dr. Chema Perry MD Primary Care Provider Active Start: February 14, 2025 Susana BOSE CLIENT DELIVERY SPECIALIST-C Attending Provider Active Start: February 14, 2025 Team Status: Active Member Role/Relationship Status Dates Dr. Chema Perry MD Primary Care Provider Active Start: February 22, 2025 Susana BOSE CLIENT DELIVERY SPECIALIST-C Attending Provider Active Start: February 22, 2025 Team Status: Inactive Member Role/Relationship Status Dates Dr. Chema Perry MD Primary Care Provider Active Start: February 22, 2025 End: February 22, 2025 Dr. Chema Perry MD Referring Provider Active Start: February 22, 2025 End: February 22, 2025 Damien Burleson MD Attending Provider Active St art: February 22, 2025 End: February 22, 2025 Team Status: Inactive Member Role/Relationship Status Dates Dr. Chema Perry MD Primary Care Provider Active Start: February 22, 2025 End: February 22, 2025 Dr. Rolando Griffith MD Attending Provider Active S tart: February 22, 2025 End: February 22, 2025 Team Status: Active Member Role/Relationship Status Dates Dr. Chema Perry MD Primary Care Provider Active Start: February 01, 2025 Dr. Chema Perry MD Attending Provider Active Start: February 01, 2025 Dr. Chema Perry MD Referring Provider Active Start: February 01, 2025 Team Status: Inactive Member Role/Relationship Status Dates Dr. Chema Perry MD Primary Care Provider Active Start: February 03, 2025 End: February 03, 2025 Dr. Isma Bustamante DO Attending Provider Active Start: February 03, 2025 End: February 03, 2025 Dr. Isma Bustamante DO Emergency Provider Active Start: February 03, 2025 End: February 03, 2025 Team Status: Active Member Role/Relationship Status Dates Dr. Chema Perry MD Primary Care Provider Active Start: February 06, 2025 Dr. Kana Whitt DO Emergency Provider Active Start: February 06, 2025 Damien Burleson MD Attending Provider Active St art: February 06, 2025 Dr. Vincent Camp DO Referring Provider Active Start: February 06, 2025 Team Status: Inactive Member Role/Relationship Status Dates Dr. Chema Perry MD Primary Care Provider Active Start: February 06, 2025 End: February 08, 2025 Dr. Kana Whitt DO Emergency Provider Active Start: February 06, 2025 End: February 08, 2025 Dr. Vincent Camp DO Admit Provider Active Star t: February 06, 2025 End: February 08, 2025 Dr. Vincent Camp DO Attending Provider Active Start: February 06, 2025 End: February 08, 2025 Damien Burleson MD Other Provider Active Start: February 06, 2025 End: February 08, 2025 Team Status: Active Member Role/Relationship Status Dates Dr. Chema Perry MD Primary Care Provider Active Start: February 06, 2025 Dr. Kana Whitt DO Emergency Provider Active Start: February 06, 2025 Dr. Vincent Camp DO Admit Provider Active Star t: February 06, 2025 Dr. Vincent Camp DO Attending Provider Active Start: February 06, 2025 Dr. Vincent Camp DO Other Provider Active Star t: February 06, 2025 Damien Burleson MD Other Provider Active Start: February 06, 2025 Team Status: Active Member Role/Relationship Status Dates Dr. Chema Perry MD Primary Care Provider Active Start: February 07, 2025 Dr. Kana Whitt DO Emergency Provider Active Start: February 07, 2025 Dr. Vincent Camp DO Admit Provider Active Star t: February 07, 2025 Dr. Vincent Camp DO Attending Provider Active Start: February 07, 2025 Dr. Vincent Camp DO Other Provider Active Star t: February 07, 2025 Damien Burleson MD Other Provider Active Start: February 07, 2025 Team Status: Active Member Role/Relationship Status Dates Dr. Chema Perry MD Primary Care Provider Active Start: February 07, 2025 Dr. Kana Whitt DO Emergency Provider Active Start: February 07, 2025 Dr. Vincent Camp DO Admit Provider Active Star t: February 07, 2025 Dr. Vincent Camp DO Other Provider Active Star t: February 07, 2025 Damien Burleson MD Attending Provider Active St art: February 07, 2025 Damien Burleson MD Other Provider Active Start: February 07, 2025 Team Status: Active Member Role/Relationship Status Dates Dr. Chema Perry MD Primary Care Provider Active Start: February 07, 2025 End: February 07, 2025 Dr. Rolando Griffith MD Attending Provider Active S tart: February 07, 2025 End: February 07, 2025 Dr. Vincent Camp DO Referring Provider Active Start: February 07, 2025 End: February 07, 2025 Team Status: Active Member Role/Relationship Status Dates Dr. Chema Perry MD Primary Care Provider Active Start: February 08, 2025 Dr. Kana Whitt DO Emergency Provider Active Start: February 08, 2025 Dr. Vincent Camp DO Admit Provider Active Star t: February 08, 2025 Dr. Vincent Camp DO Attending Provider Active Start: February 08, 2025 Dr. Vincent Camp DO Other Provider Active Star t: February 08, 2025 Damien Burleson MD Other Provider Active Start: February 08, 2025 Team Status: Inactive Member Role/Relationship Status Dates Dr. Chema Perry MD Primary Care Provider Active Start: February 09, 2025 End: February 09, 2025 Susana Calderon CLIENT DELIVERY SPECIALIST, CLIENT DELIVERY SPECIALIST-C Attending Provider Active Start: February 09, 2025 End: February 09, 2025 Team Status: Inactive Member Role/Relationship Status Dates Dr. Chema Perry MD Primary Care Provider Active Start: February 10, 2025 End: February 10, 2025 Susana Calderon CLIENT DELIVERY SPECIALIST, CLIENT DELIVERY SPECIALIST-C Attending Provider Active Start: February 10, 2025 End: February 10, 2025 Team Status: Inactive Member Role/Relationship Status Dates Dr. Chema Perry MD Primary Care Provider Active Start: February 11, 2025 End: February 11, 2025 Susana Calderon CLIENT DELIVERY SPECIALIST, CLIENT DELIVERY SPECIALIST-C Attending Provider Active Start: February 11, 2025 End: February 11, 2025 Team Status: Inactive Member Role/Relationship Status Dates Dr. Chema Perry MD Primary Care Provider Active Start: February 15, 2025 Dr. Janis Bhandari MD Attending Provider Active Start: February 15, 2025 Team Status: Inactive Member Role/Relationship Status Dates Dr. Chema Perry MD Primary Care Provider Active Start: March 11, 2025 End: March 11, 2025 Dr. David Gagnon MD Emergency Provider Active Start: March 11, 2025 End: March 11, 2025 Transition Assistant Relationship Specialty Start Date End Date Chema Perry MD [address] [facility] [address] [place] [address] PCP - General Internal Medicine 10/18/24 Stephanie Brush MD [address] [place], [place] [id number] Referring Ophthalmology 07/23/23 Porfirio Carreon DO [address] [facility] [address] [place] [phone] Referring Orthopedics 02/10/24 [place] [address] [place] [address] Replanting Machine Operator Cardiology 08/03/24 Team Status: Inactive Member Role/Relationship Status Dates Dr. Chema Perry MD Primary Care Provider Active Start: March 14, 2025 End: March 14, 2025 Dr. Chema Perry MD Attending Provider Active Start: March 14, 2025 End: March 14, 2025 Transition Assistant Relationship Specialty Start Date End Date Chema Perry MD [address] [facility] [address] [place] [address] PCP - General Internal Medicine 10/18/24 Stephanie Brush MD [address] [place] [address] Referring Ophthalmology 07/23/23 Porfirio Carreon DO [address] [facility] [address] [place] [phone] Referring Orthopedics 02/10/24 [place] [address] [place] [address] Replanting Machine Operator Cardiology 08/03/24 Team Status: Active Member Role/Relationship Status Dates Dr. Chema Perry MD Primary Care Provider Active Start: February 22, 2025 BURAK Russ Attending Provider Active Start: February 22, 2025 BURAK Russ Referring Provider Active Start: February 22, 2025 Team Status: Inactive Member Role/Relationship Status Dates Dr. Chema Perry MD Primary Care Provider Active Start: March 11, 2025 End: March 11, 2025 Dr. David Gagnon MD Attending Provider Active Start: March 11, 2025 End: March 11, 2025 Dr. David Gagnon MD Emergency Provider Active Start: March 11, 2025 End: March 11, 2025 Team Status: Inactive Member Role/Relationship Status Dates Dr. Chema Perry MD Primary Care Provider Active Start: March 22, 2025 End: March 22, 2025 Dr. Chema Perry MD Referring Provider Active Start: March 22, 2025 End: March 22, 2025 Dr. Janis Bhandari MD Attending Provider Active Start: March 22, 2025 End: March 22, 2025 Team Status: Inactive Member Role/Relationship Status Dates Dr. Chema Perry MD Primary Care Provider Active Start: February 15, 2025 End: February 15, 2025 Dr. Bryant Melendrez MD Attending Provider Active Start: February 15, 2025 End: February 15, 2025 Team Status: Active Member Role/Relationship Status Dates Dr. Chema Perry MD Primary Care Provider Active Start: February 22, 2025 Susana BOSE NP-C Attending Provider Active Start: February 22, 2025 Susana BOSE NP-Smiley Referring Provider Active Start: February 22, 2025 Team Status: Inactive Member Role/Relationship Status Dates Dr. Chmea Perry MD Primary Care Provider Active Start: February 22, 2025 End: February 22, 2025 Dr. Chema Perry MD Referring Provider Active Start: February 22, 2025 End: February 22, 2025 Damien Burleson MD Attending Provider Active St art: February 22, 2025 End: February 22, 2025 Team Status: Inactive Member Role/Relationship Status Dates Dr. Chema Perry MD Primary Care Provider Active Start: February 22, 2025 End: February 22, 2025 Dr. Rolando Griffith MD Attending Provider Active S tart: February 22, 2025 End: February 22, 2025 Team Status: Inactive Member Role/Relationship Status Dates Dr. Chema Perry MD Primary Care Provider Active Start: March 11, 2025 End: March 11, 2025 Dr. David Gagnon MD Attending Provider Active Start: March 11, 2025 End: March 11, 2025 Dr. David Gagnon MD Emergency Provider Active Start: March 11, 2025 End: March 11, 2025 Team Status: Inactive Member Role/Relationship Status Dates Dr. Chema Perry MD Primary Care Provider Active Start: March 14, 2025 End: March 14, 2025 Dr. Chema Perry MD Attending Provider Active Start: March 14, 2025 End: March 14, 2025 Team Status: Inactive Member Role/Relationship Status Dates Dr. Chema Perry MD Primary Care Provider Active Start: March 22, 2025 End: March 22, 2025 Dr. Chema Perry MD Referring Provider Active Start: March 22, 2025 End: March 22, 2025 Dr. Janis Bhandari MD Attending Provider Active Start: March 22, 2025 End: March 22, 2025 Transition Assistant Relationship Specialty Start Date End Date Chema Perry MD [address] [facility] [address] [place] [address] PCP - General Internal Medicine 10/18/24 Stephanie Brush MD [address] [place], [place] [id number] Referring Ophthalmology 07/23/23 Porfirio Carreon DO [address] [facility] [address] [place] [phone] Referring Orthopedics 02/10/24 [place] [address] [place] [address] Replanting Machine Operator Cardiology 08/03/24 Team Status: Inactive Member Role/Relationship Status Dates Dr. Chema Perry MD Primary Care Provider Active Start: February 01, 2025 End: February 01, 2025 Dr. Chema Perry MD Attending Provider Active Start: February 01, 2025 End: February 01, 2025 Dr. Chema Perry MD Referring Provider Active Start: February 01, 2025 End: February 01, 2025 Transition Assistant Relationship Specialty Start Date End Date Chema Perry MD [address] [facility] [address] [place] [address] PCP - General Internal Medicine 10/18/24 Stephanie Brush MD [address] [place] [address] Referring Ophthalmology 07/23/23 Porfirio Carreon DO [address] [place] [phone] Referring Orthopedics 02/10/24 [place] [address] [place], [place] [id number] Replanting Machine Operator Cardiology 08/03/24 Team Status: Inactive Member Role/Relationship Status Dates Dr. Chema Perry MD Primary Care Provider Active Start: May 03, 2025 End: May 03, 2025 Dr. Chu Horowitz MD Emergency Provider Active Sta rt: May 03, 2025 End: May 03, 2025 Goals (unrecognized section and content) [...] section and content) DATE CREATED AUTHOR 11/01/2024 [facility] DATE CREATED AUTHOR AUTHOR'S ORGANIZ ATION 12/01/2024 [facility] DATE CREATED AUTHOR AUTHOR'S ORGANIZ ATION 04/18/2025 [facility] DATE CREATED AUTHOR AUTHOR'S ORGANIZ ATION 05/03/[address] [facility] DATE CREATED AUTHOR AUTHOR'S ORGANIZ ATION 05/06/2025 [facility] FOR RECORDS PERTAINING TO PATIENTS WHO ARE [...] BE BASED ON THE PRIMARY CLINICAL RECORDS. [employer] [facility]. provides no warranty or guarantee of the accuracy or completeness of information in this document.
[2025-05-07 12:50] VITALS: BP 132/68; PULSE 73; RESP 18; TEMP 36.3; O2SAT 93
== END 2025-05-07 12:52 | disposition home or self-care (01) ==
PROVIDERS: Emergency Provider Emergency Medicine; PCP Internal Medicine; Referring Provider Emergency Medicine; Visit Provider Emergency Medicine
DX: Z48.00 Encounter for change or removal of nonsurgical wound dressing (principal); S81.812D Laceration without foreign body, left lower leg, subsequent encounter; I10 Essential (primary) hypertension; E78.00 Pure hypercholesterolemia, unspecified; Z86.718 Personal history of other venous thrombosis and embolism; Z90.710 Acquired absence of both cervix and uterus; I25.10 Atherosclerotic heart disease of native coronary artery without angina pectoris; Z90.49 Acquired absence of other specified parts of digestive tract; Z95.5 Presence of coronary angioplasty implant and graft; Z86.73 Personal history of transient ischemic attack (TIA), and cerebral 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; Z85.3 Personal history of malignant neoplasm of breast; I25.2 Old myocardial infarction
CPT/HCPCS: 99283

== ENCOUNTER 2025-06-14 13:30 | Outpatient (RCR) | payer MEDICARE, OTHER, SELFPAY ==
--- NOTE | 2025-05-11 16:32 | HP.PTEVAL_ITS ---
Patient's Visit Information Visit Information Visit Information: SHELDON GALEANO is a 84 year old F referred to Physical Therapy by Dr. Oskar Cotter DO with a diagnosis of R distal Fx of shaft of R clavicle. Date of Evaluation: 05/11/25 Physical Therapist: MEHNAZ Stephen Visit Plan Frequency: 2x /Week Duration: 2 Months Plan: 2X/ week for 8 weeks for slow progressive pain free ROM and some strengthening (nothing greater than 5# per Dr order), postural exercises with HEP. Subjective Subjective: Pt fx R clavicle from a fall a few months ago and they will not do surgery due to osteoporosis risk. The Dr did not want him to move it but now it is ok with her to move it cautiously and some light strengthening 5# and he see her in 6 months. Pt eats and writes with her R and is able to do so. She has a caregiver today Sydni and she will be here at all times. She sleeps well once she goes to bed. She can not lay on her R shoulder. She uses a rollator. She had another fall a week or so ago and hit her arm. Pain R shoulder pain: Pain Intensity (Out of 10): 2 Objective Objective: R handed for writing and eating, Pt walks with a rollator. Pt is at high risk for falls with major Osteoporosis Clinical Psychologist strength: R 25# and L 21# AROM: R shoulder flex 80 and L 124 R shoulder IR to T12 B R shoulder ER 60 and L 75 UE MMT: R shoulder flex 3.1 and L 6.4 R shoulder ER 3.4 and L 6.4 Observation: Pt R clavicle is severely displaced and the tip of the clavicle that is displaced is slightly red and pt caregiver will watch it. Balance/Special Test Scores Quick DASH Score: 59.0900 Goals Goal 1:: I HEP Goal Time Frame: 6-8 Weeks Goal 2:: Increase R shoulder AROM to 100 degrees elevation with no pain Goal Time Frame: 6-8 Weeks Goal 3:: Increase R shoulder strength (at the time of the eval: R shoulder flex 3.1 and L 6.4 R shoulder ER 3.4 and L 6.4) Goal Time Frame: 6-8 Weeks Rehabilitation Potential Rehabilitation Potential: Fair Anticipated Interventions Patient/Client Instruction: Educate patient on: Condition and Plan of Care For the Purpose of:: To decrease pain, To increase ROM, To improve nutrient delivery to tissue, To improve muscle performance and motor function, To improve ability to perform ADL's, To increase tolerance to activity/condition/position, To improve performance and independence with ADL's, To improve ability of physical actions for home/community/work/leisure, To improve gait and locomotor functions, To improve health of tissue, To decrease soft tissue restriction and To increase flexibility/ROM Therapeutic Exercise to Include: Strength training, Postural training, Passive ROM, Active ROM and Scapular Strength/Stabilization For the Purpose of:: To decrease pain, To decrease swelling/inflammation, To increase ROM, To improve nutrient delivery to tissue, To improve muscle performance and motor function, To improve ability to perform ADL's, To increase tolerance to activity/condition/position, To improve performance and independence with ADL's, To decrease level of supervision to perform tasks, To improve health of tissue, To decrease soft tissue restriction and To increase flexibility/ROM Manual Therapy Techniques to Include: Passive ROM For the Purpose of:: To increase ROM Text: Thank you for the opportunity to evaluate your patient. For Medicare and Medicare HMO plans, please review the plan of care and approve it. It will need to be FAXED BACK to us at [phone] for Medicare purposes. For Medicare only, by signing this I certify the plan of care. Please let me know if there are questions or concerns regarding this plan of care. Physician Signature: Date:
--- NOTE | 2025-06-14 14:02 | HP.PTREVAL ---
Re-Evaluation Intro: Dr. Oskar Cotter, DO, It has been my pleasure to treat SHELDON GALEANO over the last 9 visits for R distal Fx of shaft of R clavicle. Please see the progress note below for an update on the physical therapy plan of care! Subjective Subjective: I am improving and would like to continue. My R shoulder is working so much better Objective Objective/Function: R shoulder pain is 4/10 currently R shoulder MMT: ER= 8, flex= 8 #F R shoulder ROM: flex= 105, abd= 105 degrees Pt is showing excellent progress at this time. Plan Plan Plan: 2X/ week for 8 weeks for slow progressive pain free ROM and some strengthening (nothing greater than 5# per Dr order), postural exercises with HEP. Balance/Gait/Functional tests Balance/Special Test Scores Quick DASH Score: 59.0900 Goals Goals Goal 1:: I HEP Goal Time Frame: 6-8 Weeks Goal Progress: Progressing Goal 2:: Increase R shoulder AROM to 100 degrees elevation with no pain Goal Time Frame: 6-8 Weeks Goal Progress: Goal Met Goal 3:: Increase R shoulder strength (at the time of the eval: R shoulder flex 3.1 and L 6.4 R shoulder ER 3.4 and L 6.4) Goal Time Frame: 6-8 Weeks Goal Progress: Goal Met Goal 4:: Increase R shoulder flex and abd to 110 degrees to aid with overhead lifting. Goal Time Frame: 2 Weeks Goal Progress: New goal Goal 5:: Increase R shoulder flex and ER MMT to 10#F to aid with IADL's Goal Progress: New goal Anticipated Interventions Anticipated Interventions Patient/Client Instruction: Educate patient on: Condition and Plan of Care For the Purpose of:: To decrease pain, To increase ROM, To improve nutrient delivery to tissue, To improve muscle performance and motor function, To improve ability to perform ADL's, To increase tolerance to activity/condition/position, To improve performance and independence with ADL's, To improve ability of physical actions for home/community/work/leisure, To improve gait and locomotor functions, To improve health of tissue, To decrease soft tissue restriction and To increase flexibility/ROM Therapeutic Exercise to Include: Strength training, Postural training, Passive ROM, Active ROM and Scapular Strength/Stabilization For the Purpose of:: To decrease pain, To decrease swelling/inflammation, To increase ROM, To improve nutrient delivery to tissue, To improve muscle performance and motor function, To improve ability to perform ADL's, To increase tolerance to activity/condition/position, To improve performance and independence with ADL's, To decrease level of supervision to perform tasks, To improve health of tissue, To decrease soft tissue restriction and To increase flexibility/ROM Manual Therapy Techniques to Include: Passive ROM For the Purpose of:: To increase ROM Re-Evaluation Ending Re-evaluation ending: Please do not hesitate to contact me at [phone] by phone or if you have questions or concerns regarding this new plan of care! Sincerely, Gunnar Graves, PT, ATC
--- NOTE | 2025-08-10 07:54 | HP.PT.NRP ---
Patient Information Patient Information: SHELDON ALAN was seen in my office for initial evaluation on 05/11/25. The following Plan of Care was established for this patient: POC Established Initial Frequency: 2x /Week Initial Duration: 2 Months Anticipated Interventions Patient/Client Instruction: Educate patient on: Condition and Plan of Care For the Purpose of:: To decrease pain, To increase ROM, To improve nutrient delivery to tissue, To improve muscle performance and motor function, To improve ability to perform ADL's, To increase tolerance to activity/condition/position, To improve performance and independence with ADL's, To improve ability of physical actions for home/community/work/leisure, To improve gait and locomotor functions, To improve health of tissue, To decrease soft tissue restriction and To increase flexibility/ROM Therapeutic Exercise to Include: Strength training, Postural training, Passive ROM, Active ROM and Scapular Strength/Stabilization For the Purpose of:: To decrease pain, To decrease swelling/inflammation, To increase ROM, To improve nutrient delivery to tissue, To improve muscle performance and motor function, To improve ability to perform ADL's, To increase tolerance to activity/condition/position, To improve performance and independence with ADL's, To decrease level of supervision to perform tasks, To improve health of tissue, To decrease soft tissue restriction and To increase flexibility/ROM Manual Therapy Techniques to Include: Passive ROM For the Purpose of:: To increase ROM Last Seen Last Seen: This patient was last seen in our office . Pertinent comments regarding their Physical therapy will appear below: Pt has not returned in greater than 30 days and is discontinued at this time. At this point I will be discontinuing this patient from physical therapy. I would be happy to see this patient again in the future if found appropriate by the physician. Thank you! Gunnar Graves, PT, ATC Balance/Gait/Functional tests Balance/Special Test Scores Quick DASH Score: [phone]
== END 2025-06-14 19:00 | disposition home or self-care (01) ==
LOC: PT 13:30
PROVIDERS: PCP Internal Medicine; Visit Provider Orthopaedic Surgery
DX: S42.021D Displaced fracture of shaft of right clavicle, subsequent encounter for fracture with routine healing (principal)
CPT/HCPCS: 97110; 97161; 97530

== ENCOUNTER → 2025-06-14 | Outpatient (CLI) | payer MEDICARE, OTHER, SELFPAY ==
[2025-06-14 15:43] LABS: Hematocrit 33.9 % (37-47); Hemoglobin 10.7 g/dL (12.0-15.0); Immature Granulocytes Count 0.010 X10^3/uL (0.0-0.0); Mean Corp Hgb Conc 31.6 g/dL (32-36); Mean Corpuscular Volume 86.3 fL (81-99); Mean Platelet Vol. 11.4 fl (6.2-12.0); NRBC Flagged by Analyzer 0 % (0-5); Platelet Count 172 K/mm3 (150-450); RBC Distribution Width CV 14.6 % (11.6-14.6); RBC Distribution Width SD 46.2 fl (35.1-43.9); Red Blood Count 3.93 M/mm3 (4.2-5.4); White Blood Count 5.1 K/mm3 (4.4-11.0)
[2025-06-14 16:44] LABS: AST(SGOT) 31 U/L (<=31); Alanine Aminotransfer ALT/SGPT 20 U/L (<=34); Albumin, Serum 3.8 g/dL (3.4-4.8); Alkaline Phosphatase 79 U/L (35-104); Anion Gap 10 (5-15); BUN 23 mg/dL (4-19); BUN/Creat Ratio 22.7 RATIO (10-20); Calcium,Total 9.0 mg/dL (7.6-11.0); Carbon Dioxide 25.9 mmol/L (21.0-32.0); Chloride 103 mmol/L (98-108); Cholesterol 118 mg/dL (<=200); Free T3 2.4 pg/mL (2.18-3.98); Globulin 2.9 g/dL (2.2-4.2); Glucose 96 mg/dL (70-99); Low Density Lipoprotein Calc. 36 mg/dL; Magnesium 1.8 mg/dL (1.5-2.2); Potassium 3.9 mmol/L (3.3-5.1); Triglycerides 117 mg/dL; Very Low Density Lipoprotein 23 mg/dL (5-40); Vitamin B12 1114 pg/mL (180-914); Vitamin D,25 Hydroxy 46.3 ng/mL (30-100); cholesterol:hdl ratio screen 1.93
== END | disposition home or self-care (01) ==
LOC: LAB 14:46
PROVIDERS: PCP Internal Medicine; Referring Provider Internal Medicine; Visit Provider Internal Medicine
DX: E03.9 Hypothyroidism, unspecified (principal); F01.50 Vascular dementia, unspecified severity, without behavioral disturbance, psychotic disturbance, mood disturbance, and anxiety; G40.909 Epilepsy, unspecified, not intractable, without status epilepticus; E78.5 Hyperlipidemia, unspecified; F32.A Depression, unspecified; G25.81 Restless legs syndrome; G90.50 Complex regional pain syndrome I, unspecified; M81.0 Age-related osteoporosis without current pathological fracture; I10 Essential (primary) hypertension; I25.10 Atherosclerotic heart disease of native coronary artery without angina pectoris; R42 Dizziness and giddiness
CPT/HCPCS: 36415; 80053; 80061; 82306; 82607; 83735; 84439; 84443; 84481; 85025

== ENCOUNTER 2025-06-16 15:30 | Outpatient (RCR) | payer MEDICARE, OTHER, SELFPAY ==
[2025-05-19 14:54] VITALS: BP 128/94; PULSE 73; RESP 18; TEMP 36.3; BMI 22.3
--- NOTE | 2025-05-19 18:18 | HP.PCM_ITS ---
History of Present Illness Date of Service: 05/19/25 FOR[facility]LY [facility] Medical History (Updated 05/15/25 @ 00:00 by Background Daemon) Hematoma of leg Vaginal atrophy Malignant neoplasm of breast (female) Right clavicle fracture Leg edema Open wound of right lower extremity Contusion of right foot Kyphoscoliosis deformity of spine Bee sting Lumbar contusion Contusion of thoracic wall Pain of left lower extremity Contact with and (suspected) exposure to other viral communicable diseases Contusion of left wrist Left elbow contusion Contusion of left shoulder Scalp contusion Injury of left elbow Injury of left shoulder Presence of stent in coronary artery (~1989) Atherosclerotic heart disease of [place] coronary artery without angina pectoris Essential hypertension Influenza A Health care maintenance Falls frequently Cancer Depression Dementia Walker as ambulation aid Arthritis Bladder disease Low iron DVT (deep venous thrombosis) High cholesterol Restless legs Back pain TIA (transient ischemic attack) Seizures Difficulty swallowing Gastric reflux Non-smoker Asthma Shortness of breath on exertion Hx of echocardiogram History of stress test Hypertension Cardiology follow-up encounter History of heart attack Hypertension aquired autoimmune encephalopathy h/o back surgery Heart disease Dementia Partial complex seizures Home Medications ?Medication ?Instructions ?Recorded ?Last Taken ?Type L.acidophil-L.casei-B.bifid-B.longum-FOS 1 cap PO RAPHAEL Y Supplement 09/02/21 02/05/25 History 2 billion cell-50 mg capsule (Probiotic Blend) aspirin 81 mg tablet,delayed 81 mg PO DAILY 01/10/22 0 02/05/25 History release (Adult Aspirin Regimen) d-mannose 500 mg capsule 500 mg PO DAILY 06/07/22 History famotidine 10 mg tablet 10 mg PO BID 06/07/22 History multivitamin 1 tab PO DAILY 06/07/22/09/11 History mirabegron 50 mg tablet,extended 50 mg PO QHS Check wi th primary 01/29/23 02/05/25 History release 24 hr (Myrbetriq) doctor syringes BD ECLIPSE 04/11/23 Unknown History latanoprost 0.005 % eye drops 1 drp ophthalmic (eye) D AILY 08/13/23 02/05/25 History (Xalatan) nitroglycerin 0.4 mg sublingual 0.4 mg sublingual Q5-1 5M PRN chest 11/12/23 Unknown Rx tablet pain #25 tabs BD Sry/needle eclips See Rx Instructions IM .COMP SANDRA 02/23/24 Unknown Rx #12 ea azelastine 137 mcg (0.1 %) nasal 2 spray intranasal BI D 03/16/24 Unknown History spray cetirizine 10 mg capsule (Zyrtec) 10 mg PO DAILY PRN a llergy symptoms 03/16/24 Unknown History fluticasone propionate 50 1 spray intranasal DAILY 02/05/25 History mcg/actuation nasal spray,suspension (Allergy Relief (fluticasone)) PEP device #1 ea 04/06/24 Unknown Rx apixaban 5 mg tablet (Eliquis) 5 mg PO BID #180 tabs 1 02/05/25 Rx atorvastatin 40 mg tablet See Rx Instructions .Route 1 02/05/25 Rx .COMPLEX #90 tabs levothyroxine 50 mcg tablet 50 mcg PO DAILY Thyroid #9 0 tabs 06/08/24 02/05/25 Rx memantine 10 mg tablet 10 mg PO BID Alzheimer's #18 0 tabs 06/08/24 02/05/25 Rx pramipexole 0.5 mg tablet 0.5 mg PO BID #180 tabs 10/10/1102/05/25 Rx vortioxetine 20 mg tablet 20 mg PO DAILY DEPRESSION #9 0 tabs 06/08/24 02/05/25 Rx (Trintellix) brimonidine 0.2 % eye drops 1 drp ophthalmic (eye) QHS 10/14/24 02/05/25 History olopatadine 0.6 % nasal spray 2 spray intranasal DAILY 10/14/24 Unknown History pantoprazole 40 mg tablet,delayed 40 mg PO DAILY 10/1402/05/25 History release potassium chloride 20 mEq 20 meq PO DAILY 10/14/24 History tablet,extended release(part/cryst) (Klor-Con M) furosemide 20 mg tablet 10 mg (1/2 x 20 mg) PO DAILY PRN 11/23/24 Unknown Rx edema #30 tabs denosumab 60 mg/mL subcutaneous 60 mg subcut [id number] #1 mL 01/24/25 Unknown Rx syringe (Prolia) gabapentin 100 mg capsule 300 mg PO QHS restless leg(s ) 02/03/25 02/05/25 History donepezil 10 mg tablet 10 mg PO DAILY 02/06/25 06/09/11 History lacosamide 100 mg tablet (Vimpat) 100 mg PO BID 20 day s #40 tabs 02/08/25 Unknown Rx acetaminophen 500 mg capsule 500 mg PO Q6H PRN pain Unknown History dorzolamide 22.3 mg-timolol 6.8 1 drp ophthalmic (eye) BID 02/22/25 Unknown History mg/mL eye drops ondansetron 4 mg disintegrating 4 mg PO Q4H PRN Unknown History tablet sennosides 8.6 mg-docusate sodium 1 tab-cap PO QHS 04/11 Unknown History 50 mg tablet (Senna Plus) albuterol sulfate 2.5 mg/3 mL 2.5 mg (3 mL) inhalation Q6H PRN 03/10/25 Unknown Rx (0.083 %) solution for nebulization Sob &/Or Wheezing #180 mL mirabegron 50 mg tablet,extended See Rx Instructions P O QDAY #180 03/22/25 Unknown Rx release 24 hr (Myrbetriq) tabs ergocalciferol (vitamin D2) 1,250 1,250 mcg PO Q7D #12 caps 04/13/25 Unknown Rx mcg (50,000 unit) capsule (Vitamin D2) tramadol 50 mg tablet 50 mg PO TID PRN pain Unknown History Allergy/AdvReac Type Severity Reaction Status Date / Time doxycycline Allergy Mild Vomiting Verified 05/11/25 09:32 acetaminophen (From Percocet) Allergy unknown Verified 05/11/25 09:32 lamotrigine (From Lamictal) Allergy Lip Verified 05/11/25 09:32 Swelling moxifloxacin HCl (From Allergy Other Verified 05/11/25 09:32 Avelox) propoxyphene napsylate (From Allergy Other Verified 05/11/25 09:32 Darvocet-N) zolpidem (From Ambien) Allergy unknown Verified 05/11/25 09:32 hydrocodone AdvReac Severe Confusion Verified 05/11/25 09:32 oxycodone (From Percocet) AdvReac Severe Confusion Verified 05/11/25 09:32 zolpidem tartrate (From AdvReac Other Verified 05/11/25 09:32 Ambien) Family History Mother CVA (cerebral vascular accident) Arthritis Father Myocardial infarction, Onset Age: 40 Alcoholism Hypertension Sister Anemia Grandmother Bowel disease Osteoporosis Ovarian cancer Other Heart disease Surgical History H/O: hysterectomy History of repair of hiatal hernia History of cholecystectomy History of hernia surgery Presence of coronary angioplasty implant and graft (~1989) History of hammer toe correction History of lumbar laminectomy History of carpal tunnel release History of tonsillectomy and adenoidectomy History of lumpectomy of left breast History of cardiac catheterization History of esophagogastroduodenoscopy (EGD) Hx of colonoscopy Hx of ventral hernia repair Hx of cataract extraction History of laryngoscopy History of appendectomy H/O kyphoplasty Social History household members: spouse housing: house Smoking Status: Never smoker alcohol intake: current alcohol intake frequency: a few times a week Alcohol type: wine substance use type: does not use caffeine: Yes Type: coffee Number of servings: 1 what type of physical activity do you participate in: other details: PT 3x weekly frequency: 3-4 times per week do you feel safe at home: Yes Vital Signs Vital Signs Vital Signs: 05/19/25 14:54 Temperature 97.3 F L Temperature Source Temporal Pulse Rate 73 Respiratory Rate 18 Blood Pressure 128/94 H Blood Pressure Mean 105 Blood Pressure Source Monitor Blood Pressure Position Semi-Fowlers Blood Pressure Location Left Arm Weight Weight: 96 lb Body Mass Index (BMI) 22.3 Debridement Note Debridement Note Post-Debridement Measurements and Additional Note: Post-Debridement Measurements/Treatment GARCIA - Nurse 1 - General Ulcer Assessment Start: 05/19/25 14:54 Freq: Status: Active Protocol: RAFA Activity Type Activity Date Activity User E-sign Co-sign Detail Recorded Client Recorded Date Recorded By Document 05/19/25 14:54 ML [id number] 05/19/25 15:06 ML 05/19/25 14:54 WC - Today's Visit Information Type of service Initial Visit Arrival Mode Ambulatory Transfer Assistance None Patient Identification Verified (Name & Yes ) Patient Requires Transmission-Based No Precautions Height and Weight Height 4 ft 7 in Weight 96 lb Weight in Pounds 96.0 lbs Body Mass Index (BMI) 22.3 BMI Classification Normal Vital Signs Temperature (97.8 F-99.1 F) 97.3 F L Temperature Source Temporal Pulse Rate (60-100) 73 Pulse Location Monitor Respiratory Rate (12-18) 18 Respiratory rate source Monitor Blood Pressure (90/60-120/80) 128/94 H Blood Pressure Mean 105 Source Monitor Position Semi-Fowlers Blood Pressure Location Left Arm Pain Scale: 0-10 Numeric Is Patient Pain Free? No Culture/Moravian/Plastic Panel Installer Cultural/Moravian Needs that may affect No Treatment Plan Would you allow our hospital adoption worker to No meet you for the purpose of spiritual/ emotional support? Plastic Panel Installer to contact place of anglican No Teaching: Wound Center *Welcome to the Wound Center -Person Taught Patient,Family -Teaching Method Discussion, Demonstration -Response to teaching Verbalize Understanding WC - Nurse 1 - General Ulcer Measurement Start: 05/19/25 14:54 Freq: Status: Active Protocol: Activity Type Activity Date Activity User E-sign Co-sign Detail Recorded Client Recorded Date Recorded By Document 05/19/25 14:54 ML [id number] 05/19/25 15:06 ML 05/19/25 14:54 Wound Center Nurse 1 1 LLE medial -Combined with other wound No -Current Size (cm) - Length 0.1 -Current Size (cm) - Width 0.1 -Current Size (cm) - Depth 0.1 -Total Square Cm 0.01 -Photo Taken Yes -Tunneling No -Undermining/Tunneling No -Circular Undermining No -Exudate Amt Medium -Exudate Type Serosanguineous -Wound Margin Distinct, Outline Attached -Granulation Amt Small (1-33%) -Granulation Quality [place],Red -Slough/Fibrin Yes -Necrosis Amt Large (67-100%) -Necrotic Tissue Type Adherent Slough -Structure Exposed N/A -Texture (Tiffany-wound Skin Appearance) Assessed, Scarring -Moisture (Tiffany-wound Skin Appearance) Assessed -Color (Tiffany-wound Skin Appearance) Assessed -Temperature (Tiffany-wound Skin No Abnormality Appearance) (Pt Warm) -Tenderness on Palpation (Tiffany-wound No Skin Appearance) -Ulcer Cleansing Wound Cleanser -Foul Odor after Cleansing No -Anesthetic Used 4% Lidocaine Solution Lower Limb Edema Present Yes Right Calf (cm) 32.5 Right Ankle (cm) 22 Left Calf (cm) 35.6 Left Ankle (cm) 23.6 - Nurse 2 - General Ulcer CM Notes Start: 05/19/25 14:54 Freq: Status: Active Protocol: Activity Type Activity Date Activity User E-sign Co-sign Detail Recorded Client Recorded Date Recorded By Document 05/19/25 15:42 GM [id number] 05/19/25 15:50 GM 05/19/25 15:42 Wound Center Nurse 2 1 LLE medial -Time 15:42 -Correct Patient Yes -Correct Side, Site, Position Yes -Correct Procedure Yes -Procedure Performed Yes -Type of Procedure Debridement -Clinical Debridement Epidermis / Dermis -Tissue Removed Epidermis, Dermis -Post Debridement (cm) - Length 0.3 -Post Debridement (cm) - Width 2.8 -Post Debridement (cm) - Depth 0.2 -Total Square (Post) (cm) 0.84 -Area of Debridement (cm) - Length 0.3 -Area of Debridement (cm) - Width 2.8 -Total Square (Area) (cm) 0.84 -Tunneling No -Undermining/Tunneling No -Circular Undermining No -Wound/Ulcer Outcome Not Healed -Ulcer Cleansing Rinsed/ Irrigated with Saline -Foul Odor after Cleansing No -Bioengineered Tissue No -Bleeding Controlled with Pressure -Treatment Response Procedure Tolerated Well -Offloading No -Debridement - Open, 1st 20sq cm Yes Pain Scale: 0-10 Numeric Is Patient Pain Free? Yes - Nurse 3 - General Ulcer D/C NN Start: 05/19/25 14:54 Freq: Status: Active Protocol: Activity Type Activity Date Activity User E-sign Co-sign Detail Recorded Client Recorded Date Recorded By Document 05/19/25 16:15 DS [id number] 05/19/25 16:21 DS 05/19/25 16:15 Wound Care Center Nurse 3 1 LLE medial -Primary Dressing Applied Promogran, Silicone Border Foam 4x4 -Promogran 1 -Silicone Border Foam 4x4 1 Pain Scale: 0-10 Numeric Is Patient Pain Free? Yes WC - Visit Discharge Discharge Condition Stable Ambulatory Status Ambulatory, Walker Transportation Private Auto
--- NOTE | 2025-05-19 18:18 | PCM.WC.HP ---
History of Present Illness Date of Service: 05/19/25 Chief Complaint: L calf laceration History of Wound: Lauren Alcaraz is an 84 y/o female who presents today for evaluation and management of a LLE laceration. On 05/02 she had inadvertently injured her leg at home leading to a laceration; she presented initially to urgent care where the wound was cleansed and steri-strips applied but due to continued bleeding she presented to the [facility] ER on 05/03 where steri-strips were reapplied (laceration noted to be 3.5cm in length) and was recommended to hold her anticoagulation for a few days to reduce bleeding which she did. She was seen by her PCP Dr. Perry 05/11/25 and referred to wound care due to concern for high potential for delayed healing. She notes she has not had much oozing from this more recently; there are still steri-strips intact. She is chronically anticoagulated with Eliquis. She does not smoke. She is not diabetic. [facility] Medical History (Updated 05/23/25 @ 12:03 by ERIK Rodriguez) Hematoma of leg Vaginal atrophy Malignant neoplasm of breast (female) Right clavicle fracture Leg edema Open wound of right lower extremity Contusion of right foot Kyphoscoliosis deformity of spine Bee sting Lumbar contusion Contusion of thoracic wall Pain of left lower extremity Contact with and (suspected) exposure to other viral communicable diseases Contusion of left wrist Left elbow contusion Contusion of left shoulder Scalp contusion Injury of left elbow Injury of left shoulder Presence of stent in coronary artery (~1989) Atherosclerotic heart disease of [place] coronary artery without angina pectoris Essential hypertension Influenza A Health care maintenance Falls frequently Cancer Depression Dementia Walker as ambulation aid Arthritis Bladder disease Low iron DVT (deep venous thrombosis) High cholesterol Restless legs Back pain TIA (transient ischemic attack) Seizures Difficulty swallowing Gastric reflux Non-smoker Asthma Shortness of breath on exertion Hx of echocardiogram History of stress test Hypertension Cardiology follow-up encounter History of heart attack Hypertension aquired autoimmune encephalopathy h/o back surgery Heart disease Dementia Partial complex seizures Home Medications ?Medication ?Instructions ?Recorded ?Last Taken ?Type L.acidophil-L.casei-B.bifid-B.longum-FOS 1 cap PO DAILY Supplement 09/02/21 02/05/25 History 2 billion cell-50 mg capsule (Probiotic Blend) aspirin 81 mg tablet,delayed 81 mg PO DAILY 01/10/22 02/05/25 History release (Adult Aspirin Regimen) d-mannose 500 mg capsule 500 mg PO DAILY 06/07/22 02/05/25 History famotidine 10 mg tablet 10 mg PO BID 06/07/22 02/05/25 History multivitamin 1 tab PO DAILY 06/07/22 02/05/25 History mirabegron 50 mg tablet,extended 50 mg PO QHS Check with primary 01/29/23 02/05/25 History release 24 hr (Myrbetriq) doctor syringes BD ECLIPSE 04/11/23 Unknown History latanoprost 0.005 % eye drops 1 drp ophthalmic (eye) DAILY 08/13/23 02/05/25 History (Xalatan) nitroglycerin 0.4 mg sublingual 0.4 mg sublingual Q5-15M PRN chest 11/12/23 Unknown Rx tablet pain #25 tabs BD Sry/needle eclips See Rx Instructions IM .COMPLEX 02/23/24 Unknown Rx #12 ea azelastine 137 mcg (0.1 %) nasal 2 spray intranasal BID 03/16/24 Unknown History spray cetirizine 10 mg capsule (Zyrtec) 10 mg PO DAILY PRN allergy symptoms 03/16/24 Unknown History fluticasone propionate 50 1 spray intranasal DAILY 03/16/24 02/05/25 History mcg/actuation nasal spray,suspension (Allergy Relief (fluticasone)) PEP device #1 ea 04/06/24 Unknown Rx apixaban 5 mg tablet (Eliquis) 5 mg PO BID #180 tabs 06/08/24 02/05/25 Rx atorvastatin 40 mg tablet See Rx Instructions .Route 06/08/24 02/05/25 Rx .COMPLEX #90 tabs levothyroxine 50 mcg tablet 50 mcg PO DAILY Thyroid #90 tabs 06/08/24 02/05/25 Rx memantine 10 mg tablet 10 mg PO BID Alzheimer's #180 tabs 06/08/24 02/05/25 Rx pramipexole 0.5 mg tablet 0.5 mg PO BID #180 tabs 06/08/24 02/05/25 Rx vortioxetine 20 mg tablet 20 mg PO DAILY DEPRESSION #90 tabs 06/08/24 02/05/25 Rx (Trintellix) brimonidine 0.2 % eye drops 1 drp ophthalmic (eye) QHS 10/14/24 02/05/25 History olopatadine 0.6 % nasal spray 2 spray intranasal DAILY 10/14/24 Unknown History pantoprazole 40 mg tablet,delayed 40 mg PO DAILY 10/14/24 02/05/25 History release potassium chloride 20 mEq 20 meq PO DAILY 10/14/24 02/05/25 History tablet,extended release(part/cryst) (Klor-Con M) furosemide 20 mg tablet 10 mg (1/2 x 20 mg) PO DAILY PRN 11/23/24 Unknown Rx edema #30 tabs denosumab 60 mg/mL subcutaneous 60 mg subcut [id number] #1 mL 01/24/25 Unknown Rx syringe (Prolia) gabapentin 100 mg capsule 300 mg PO QHS restless leg(s) 02/03/25 02/05/25 History donepezil 10 mg tablet 10 mg PO DAILY 02/06/25 02/05/25 History lacosamide 100 mg tablet (Vimpat) 100 mg PO BID 20 days #40 tabs 02/08/25 Unknown Rx acetaminophen 500 mg capsule 500 mg PO Q6H PRN pain 02/22/25 Unknown History dorzolamide 22.3 mg-timolol 6.8 1 drp ophthalmic (eye) BID 02/22/25 Unknown History mg/mL eye drops ondansetron 4 mg disintegrating 4 mg PO Q4H PRN 02/22/25 Unknown History tablet sennosides 8.6 mg-docusate sodium 1 tab-cap PO QHS 02/22/25 Unknown History 50 mg tablet (Senna Plus) albuterol sulfate 2.5 mg/3 mL 2.5 mg (3 mL) inhalation Q6H PRN 03/10/25 Unknown Rx (0.083 %) solution for nebulization Sob &/Or Wheezing #180 mL mirabegron 50 mg tablet,extended See Rx Instructions PO QDAY #180 03/22/25 Unknown Rx release 24 hr (Myrbetriq) tabs ergocalciferol (vitamin D2) 1,250 1,250 mcg PO Q7D #12 caps 04/13/25 Unknown Rx mcg (50,000 unit) capsule (Vitamin D2) tramadol 50 mg tablet 50 mg PO TID PRN pain 05/11/25 Unknown History Allergy/AdvReac Type Severity Reaction Status Date / Time doxycycline Allergy Mild Vomiting Verified 05/11/25 09:32 acetaminophen (From Percocet) Allergy unknown Verified 05/11/25 09:32 lamotrigine (From Lamictal) Allergy Lip Verified 05/11/25 09:32 Swelling moxifloxacin HCl (From Allergy Other Verified 05/11/25 09:32 Avelox) propoxyphene napsylate (From Allergy Other Verified 05/11/25 09:32 Darvocet-N) zolpidem (From Ambien) Allergy unknown Verified 05/11/25 09:32 hydrocodone AdvReac Severe Confusion Verified 05/11/25 09:32 oxycodone (From Percocet) AdvReac Severe Confusion Verified 05/11/25 09:32 zolpidem tartrate (From AdvReac Other Verified 05/11/25 09:32 Ambien) Family History Mother CVA (cerebral vascular accident) Arthritis Father Myocardial infarction, Onset Age: 40 Alcoholism Hypertension Sister Anemia Grandmother Bowel disease Osteoporosis Ovarian cancer Other Heart disease Surgical History H/O: hysterectomy History of repair of hiatal hernia History of cholecystectomy History of hernia surgery Presence of coronary angioplasty implant and graft (~1989) History of hammer toe correction History of lumbar laminectomy History of carpal tunnel release History of tonsillectomy and adenoidectomy History of lumpectomy of left breast History of cardiac catheterization History of esophagogastroduodenoscopy (EGD) Hx of colonoscopy Hx of ventral hernia repair Hx of cataract extraction History of laryngoscopy History of appendectomy H/O kyphoplasty Social History household members: spouse housing: house Smoking Status: Never smoker alcohol intake: current alcohol intake frequency: a few times a week Alcohol type: wine substance use type: does not use caffeine: Yes Type: coffee Number of servings: 1 what type of physical activity do you participate in: other details: PT 3x weekly frequency: 3-4 times per week do you feel safe at home: Yes Vital Signs Vital Signs Vital Signs: 05/19/25 14:54 Temperature 97.3 F L Temperature Source Temporal Pulse Rate 73 Respiratory Rate 18 Blood Pressure 128/94 H Blood Pressure Mean 105 Blood Pressure Source Monitor Blood Pressure Position Semi-Fowlers Blood Pressure Location Left Arm Weight Weight: 96 lb Body Mass Index (BMI) 22.3 Physical Exam Const alert, oriented x3 and no apparent distress General Appearance: cooperative and comfortable HEENT normocephalic, head/scalp atraumatic, hearing grossly normal bilaterally, external ears normal and external nose normal Eyes General Eye: normal appearance of both eyes Neck General: normal visual inspection Resp normal respiratory effort, normal air movement, no retractions and no use of accessory muscles Effort and Inspection: able to speak in complete sentences; Negative for labored, grunting or stridor Cardio regular rate Skin Wounds: wounds noted Wound Narrative: L medial calf with laceration with overlying thick black scab and steristrips; once steristrips removed and overlying scab debrided revealed pink wound base into the subcutaneous tissue without signs of ischemia and without significant associated erythema, edema, induration, fluctuance, excess warmth, foul odor, drainage, or bleeding. Psych mental status grossly normal Appearance: grossly normal Attitude: calm and engaged Activity / Motor Behavior: appropriate eye contact Speech: normal speech Debridement Note Debridement Note Wound debrided: L calf wound Laterality: Left Type of Debridement: Selective debridement (dermis/epidermis) Anesthesia Used: 5% Lidocaine Gel Depth: Down to and including healthy tissue (dermis/epidermis) Percentage of wound debrided: 100 Instrument Used: 3mm curette Tissue Removed: scab/dried drainage Severity: Fat Layer Exposed Amount of bleeding with debridement: None Patient tolerated procedure: Patient tolerated procedure well Post-Debridement Measurements and Additional Note: Post-Debridement Measurements/Treatment - Nurse 1 - General Ulcer Assessment Start: 05/19/25 14:54 Freq: Status: Active Protocol: RAFA Activity Type Activity Date Activity User E-sign Co-sign Detail Recorded Client Recorded Date Recorded By Document 05/19/25 14:54 ML [id number] 05/19/25 15:06 ML 05/19/25 14:54 - Today's Visit Information Type of service Initial Visit Arrival Mode Ambulatory Transfer Assistance None Patient Identification Verified (Name & Yes ) Patient Requires Transmission-Based No Precautions Height and Weight Height 4 ft 7 in Weight 96 lb Weight in Pounds 96.0 lbs Body Mass Index (BMI) 22.3 BMI Classification Normal Vital Signs Temperature (97.8 F-99.1 F) 97.3 F L Temperature Source Temporal Pulse Rate (60-100) 73 Pulse Location Monitor Respiratory Rate (12-18) 18 Respiratory rate source Monitor Blood Pressure (90/60-120/80) 128/94 H Blood Pressure Mean 105 Source Monitor Position Semi-Fowlers Blood Pressure Location Left Arm Pain Scale: 0-10 Numeric Is Patient Pain Free? 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 Electronics Teacher to contact place of zoroastrian No Teaching: Wound Center *Welcome to the Wound Center -Person Taught Patient,Family -Teaching Method Discussion, Demonstration -Response to teaching Verbalize Understanding WC - Nurse 1 - General Ulcer Measurement Start: 05/19/25 14:54 Freq: Status: Active Protocol: Activity Type Activity Date Activity User E-sign Co-sign Detail Recorded Client Recorded Date Recorded By Document 05/19/25 14:54 ML [id number] 05/19/25 15:06 ML 05/19/25 14:54 Wound Center Nurse 1 1 LLE medial -Combined with other wound No -Current Size (cm) - Length 0.1 -Current Size (cm) - Width 0.1 -Current Size (cm) - Depth 0.1 -Total Square Cm 0.01 -Photo Taken Yes -Tunneling No -Undermining/Tunneling No -Circular Undermining No -Exudate Amt Medium -Exudate Type Serosanguineous -Wound Margin Distinct, Outline Attached -Granulation Amt Small (1-33%) -Granulation Quality [place],Red -Slough/Fibrin Yes -Necrosis Amt Large (67-100%) -Necrotic Tissue Type Adherent Slough -Structure Exposed N/A -Texture (Tiffany-wound Skin Appearance) Assessed, Scarring -Moisture (Tiffany-wound Skin Appearance) Assessed -Color (Tiffany-wound Skin Appearance) Assessed -Temperature (Tiffany-wound Skin No Abnormality Appearance) (Pt Warm) -Tenderness on Palpation (Tiffany-wound No Skin Appearance) -Ulcer Cleansing Wound Cleanser -Foul Odor after Cleansing No -Anesthetic Used 4% Lidocaine Solution Lower Limb Edema Present Yes Right Calf (cm) 32.5 Right Ankle (cm) 22 Left Calf (cm) 35.6 Left Ankle (cm) 23.6 WC - Nurse 2 - General Ulcer CM Notes Start: 05/19/25 14:54 Freq: Status: Active Protocol: Activity Type Activity Date Activity User E-sign Co-sign Detail Recorded Client Recorded Date Recorded By Document 05/19/25 15:42 GM [id number] 05/19/25 15:50 GM 05/19/25 15:42 Wound Center Nurse 2 1 LLE medial -Time 15:42 -Correct Patient Yes -Correct Side, Site, Position Yes -Correct Procedure Yes -Procedure Performed Yes -Type of Procedure Debridement -Clinical Debridement Epidermis / Dermis -Tissue Removed Epidermis, Dermis -Post Debridement (cm) - Length 0.3 -Post Debridement (cm) - Width 2.8 -Post Debridement (cm) - Depth 0.2 -Total Square (Post) (cm) 0.84 -Area of Debridement (cm) - Length 0.3 -Area of Debridement (cm) - Width 2.8 -Total Square (Area) (cm) 0.84 -Tunneling No -Undermining/Tunneling No -Circular Undermining No -Wound/Ulcer Outcome Not Healed -Ulcer Cleansing Rinsed/ Irrigated with Saline -Foul Odor after Cleansing No -Bioengineered Tissue No -Bleeding Controlled with Pressure -Treatment Response Procedure Tolerated Well -Offloading No -Debridement - Open, 1st 20sq cm Yes Pain Scale: 0-10 Numeric Is Patient Pain Free? Yes - Nurse 3 - General Ulcer D/C NN Start: 05/19/25 14:54 Freq: Status: Active Protocol: Activity Type Activity Date Activity User E-sign Co-sign Detail Recorded Client Recorded Date Recorded By Document 05/19/25 16:15 DS [id number] 05/19/25 16:21 DS 05/19/25 16:15 Wound Care Center Nurse 3 1 LLE medial -Primary Dressing Applied Promogran, Silicone Border Foam 4x4 -Promogran 1 -Silicone Border Foam 4x4 1 Pain Scale: 0-10 Numeric Is Patient Pain Free? Yes WC - Visit Discharge Discharge Condition Stable Ambulatory Status Ambulatory, Walker Transportation Private Auto Charges/Coding Visit Charges Office Visits / Consults: [id number] OV L3 New 30min Procedures Integumentary [id number]: [id number] Itzel subq tissue 20 sq cm/< (selective, dermis/epidermis debridement <20 sq cm) Assessment/Plan Assessment/Plan (1) Open wound of left lower leg: CODE(S): S81.802A - Unspecified open wound, left lower leg, initial encounter PLAN: open wound of the left medial calf secondary to laceration to the depth of the subcutaneous tissue (2) Leg edema: CODE(S): R60.0 - Localized edema PLAN: Plan I removed the remaining steri-strips from the laceration and debrided away the overlying thick scab; this revealed a wound bed with subcutaneous depth and healthy appearing pink granulation tissue without active bleeding or signs of infection. Do not see an indication to suture at this point, I think it will heal best by secondary intention. For wound care: (1) Cleanse the wound with antibacterial soap and water, pat gently to dry (2) Apply Pomogran lightly moistened to the wound bed (3) Cover with foam border dressing such as [place]-SAP or Mepilex (4) Change every other day or more often as needed to keep clean and dry. Return to the wound center in 1 week, sooner as needed.
--- NOTE | 2025-05-23 10:41 | WC ---
PHOTO-LEFT MEDIAL LE 05/19/25
[2025-05-26 15:21] VITALS: BP 129/70; PULSE 78; RESP 18; TEMP 36.1; BMI 22.3
--- NOTE | 2025-05-26 17:48 | PCM.WC.PN ---
History of Present Illness Date of Service: 05/26/25 Chief Complaint: L calf laceration History of Wound: Lauren Alcaraz is an 84 y/o female who presents today for evaluation and management of a LLE laceration. On 05/02 she had inadvertently injured her leg at home leading to a laceration; she presented initially to urgent care where the wound was cleansed and steri-strips applied but due to continued bleeding she presented to the [facility] ER on 05/03 where steri-strips were reapplied (laceration noted to be 3.5cm in length) and was recommended to hold her anticoagulation for a few days to reduce bleeding which she did. She was seen by her PCP Dr. Perry 05/11/25 and referred to wound care due to concern for high potential for delayed healing. She notes she has not had much oozing from this more recently; there are still steri-strips intact. She is chronically anticoagulated with Eliquis. She does not smoke. She is not diabetic. Subjective Subjective She has noticed increased lower extremity edema, particularly in the left leg over this past week. She has been trying to elevate as much as she can. 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 She is chronically anticoagulated with Eliquis 5mg BID and has not missed a dose. She has been taking good care of the wound, no significant bleeding or drainage noted. She also asks me to examine her R clavicle and overlying skin. She fractured the clavicle some time back and at the time it was determined not to manage surgically; however, there is significant displacement/deformity and notable tension across the skin at this location and she is worried long-term about the risk for skin breakdown/ulceration and subsequent risk for osteomyelitis. She has recently consulted with Dr. Burleson for consideration of surgical intervention in this regard. Objective Data Objective Data Vital Signs: Vital Signs Temp Pulse Resp BP 97 F L 78 18 129/70 H 05/26/25 15:21 05/26/25 15:21 05/26/25 15:21 05/26/25 15:21 Weight: 96 lb Body Mass Index (BMI) 22.3 Charges/Coding Procedures Integumentary [id number]: [id number] Itzel subq tissue 20 sq cm/< Physical Exam Const alert, oriented x3 and no apparent distress General Appearance: cooperative and comfortable HEENT normocephalic, head/scalp atraumatic, hearing grossly normal bilaterally, external ears normal and external nose normal Eyes General Eye: normal appearance of both eyes Neck General: normal visual inspection Resp normal respiratory effort, normal air movement, no retractions and no use of accessory muscles Effort and Inspection: able to speak in complete sentences; Negative for labored, grunting or stridor Cardio regular rate Extremity Extremity Narrative: Deformity/superior displacement of the R clavicle with overlying skin with nonblancheable erythema and tenderness to palpation though skin remains intact consistent with stage I pressure injury Skin Wounds: wounds noted Wound Narrative: L medial calf with laceration with overlying thick black scab and steristrips; once steristrips removed and overlying scab debrided revealed pink wound base into the subcutaneous tissue without signs of ischemia and without significant associated erythema, edema, induration, fluctuance, excess warmth, foul odor, drainage, or bleeding. Psych mental status grossly normal Appearance: grossly normal Attitude: calm and engaged Activity / Motor Behavior: appropriate eye contact Speech: normal speech Debridement Note Debridement Note Wound debrided: L calf wound Laterality: Left Type of Debridement: Selective debridement (dermis/epidermis) Anesthesia Used: 5% Lidocaine Gel Depth: Down to and including healthy tissue (dermis/epidermis) Percentage of wound debrided: 100 Instrument Used: 3mm curette Tissue Removed: slough Severity: Fat Layer Exposed Amount of bleeding with debridement: None Patient tolerated procedure: Patient tolerated procedure well Post-Debridement Measurements and Additional Note: Post-Debridement Measurements/Treatment - Nurse 1 - General Ulcer Assessment Start: 05/19/25 14:54 Freq: Status: Active Protocol: RAFA Activity Type Activity Date Activity User E-sign Co-sign Detail Recorded Client Recorded Date Recorded By Document 05/19/25 14:54 ML [id number] 05/19/25 15:06 ML Document 05/26/25 15:21 RB [id number] 05/26/25 15:24 RB 05/19/25 05/26/25 14:54 15:21 - Today's Visit Information Type of service Initial Visit Follow-up Visit (Physician/INSTRUCTIONAL PARAPROFESSIONAL ) Arrival Mode Ambulatory Ambulatory Transfer Assistance None None Patient Identification Verified (Name & Yes Yes ) Patient Requires Transmission-Based No No Precautions Height and Weight Height 4 ft 7 in Weight 96 lb Weight in Pounds 96.0 lbs Body Mass Index (BMI) 22.3 22.3 BMI Classification Normal Normal Vital Signs Temperature (97.8 F-99.1 F) 97.3 F L 97 F L Temperature Source Temporal Temporal Pulse Rate (60-100) 73 78 Pulse Location Monitor Monitor Respiratory Rate (12-18) 18 18 Respiratory rate source Monitor Observation Blood Pressure (90/60-120/80) 128/94 H 129/70 H Blood Pressure Mean (mm Hg) 105 89 Source Monitor Monitor Position Semi-Fowlers Semi-Fowlers Blood Pressure Location Left Arm Left Arm History Since Last Visit- (Skip if this is Patient's initial visit) Have you changed medications since your No last visit? Any new allergies or adverse reactions No Had a fall/change in ADL's that may No increase risk of falls Signs or symptoms of abuse and/or No neglect since last visit Have you been in the hospital since your No last visit? Has dressing in place as prescribed Yes Has compression in place as prescribed Yes Has offloadiing in place as prescribed N/A Experienced any changes in pain level or No management Left Footwear Regular Shoe Right Footwear Regular Shoe Pain Scale: 0-10 Numeric Is Patient Pain Free? No Yes Culture/Rastafari/Physician Credentialing Specialist Cultural/Rastafari Needs that may affect No Treatment Plan Would you allow our hospital oil drilling engineer to No meet you for the purpose of spiritual/ emotional support? Physician Credentialing Specialist to contact place of jainism No Teaching: Wound Center *Welcome to the Wound Center -Person Taught Patient,Family -Teaching Method Discussion, Demonstration -Response to teaching Verbalize Understanding WC - Nurse 1 - General Ulcer Measurement Start: 05/19/25 14:54 Freq: Status: Active Protocol: Activity Type Activity Date Activity User E-sign Co-sign Detail Recorded Client Recorded Date Recorded By Document 05/19/25 14:54 ML [id number] 05/19/25 15:06 ML Document 05/26/25 15:21 RB [id number] 05/26/25 15:24 RB 05/19/25 05/26/25 14:54 15:21 Wound Center Nurse 1 1 LLE medial -Combined with other wound No No -Current Size (cm) - Length 0.1 0.4 -Current Size (cm) - Width 0.1 2.5 -Current Size (cm) - Depth 0.1 0.1 -Total Square Cm 0.01 1.00 -Photo Taken Yes Yes -Tunneling No No -Undermining/Tunneling No No -Circular Undermining No No -Exudate Amt Medium Medium -Exudate Type Serosanguineous Serosanguineous -Wound Margin Distinct, Distinct, Outline Outline Attached Attached -Granulation Amt Small (1-33%) Medium (34-66%) -Granulation Quality [place],Red [place] -Slough/Fibrin Yes Yes -Necrosis Amt Large (67-100%) Medium (34-66%) -Necrotic Tissue Type Adherent Slough Adherent Slough -Structure Exposed N/A N/A -Texture (Tiffany-wound Skin Appearance) Assessed, Assessed Scarring -Moisture (Tiffany-wound Skin Appearance) Assessed Assessed -Color (Tiffany-wound Skin Appearance) Assessed Assessed -Temperature (Tiffany-wound Skin No Abnormality No Abnormality Appearance) (Pt Warm) (Pt Warm) -Tenderness on Palpation (Tiffany-wound No No Skin Appearance) -Ulcer Cleansing Wound Cleanser Wound Cleanser -Foul Odor after Cleansing No No -Anesthetic Used 4% Lidocaine 5% Lidocaine Solution Gel Lower Limb Edema Present Yes Yes Right Calf (cm) 32.5 Right Ankle (cm) 22 Left Calf (cm) 35.6 33 Left Ankle (cm) 23.6 26.5 WC - Nurse 2 - General Ulcer CM Notes Start: 05/19/25 14:54 Freq: Status: Active Protocol: Activity Type Activity Date Activity User E-sign Co-sign Detail Recorded Client Recorded Date Recorded By Document 05/19/25 15:42 [id number] 05/19/25 15:50 Document 05/26/25 15:28 [id number] 05/26/25 15:36 05/19/25 05/26/25 15:42 15:28 Wound Center Nurse 2 1 LLE medial -Time 15:42 15:28 -Correct Patient Yes Yes -Correct Side, Site, Position Yes Yes -Correct Procedure Yes Yes -Procedure Performed Yes Yes -Type of Procedure Debridement Debridement -Clinical Debridement Epidermis / Subcutaneous Dermis -Tissue Removed Epidermis, Subcutaneous Dermis -Post Debridement (cm) - Length 0.3 0.3 -Post Debridement (cm) - Width 2.8 1.6 -Post Debridement (cm) - Depth 0.2 0.2 -Total Square (Post) (cm) 0.84 0.48 -Area of Debridement (cm) - Length 0.3 0.3 -Area of Debridement (cm) - Width 2.8 1.6 -Total Square (Area) (cm) 0.84 0.48 -Tunneling No No -Undermining/Tunneling No No -Circular Undermining No No -Wound/Ulcer Outcome Not Healed Not Healed -Ulcer Cleansing Rinsed/ Rinsed/ Irrigated with Irrigated with Saline Saline -Foul Odor after Cleansing No No -Bioengineered Tissue No No -Bleeding Controlled with Pressure Pressure -Treatment Response Procedure Procedure Tolerated Well Tolerated Well -Offloading No No -Debridement - Open, 1st 20sq cm Yes -Debridement - Subq, 1st 20sq cm Yes Pain Scale: 0-10 Numeric Is Patient Pain Free? Yes Yes - Nurse 3 - General Ulcer D/C NN Start: 05/19/25 14:54 Freq: Status: Active Protocol: Activity Type Activity Date Activity User E-sign Co-sign Detail Recorded Client Recorded Date Recorded By Document 05/19/25 16:15 DS [id number] 05/19/25 16:21 DS Document 05/26/25 15:53 RB [id number] 05/26/25 15:56 RB 05/19/25 05/26/25 16:15 15:53 Wound Care Center Nurse 3 1 LLE medial -Primary Dressing Applied Promogran, Promogran, Silicone Border Silicone Border Foam 4x4 Foam AG 3.6x4 -Promogran 1 1 -Silicone Border Foam AG 3.6x4 2 -Silicone Border Foam 4x4 1 LLE -Tubular Bandage Single Layer -Size of Tubigrip Used Size D -Size D ($) 2 Treatment Response Procedure Tolerated Well Pain Scale: 0-10 Numeric Is Patient Pain Free? Yes Yes - Visit Discharge Discharge Condition Stable Stable Ambulatory Status Ambulatory, Ambulatory Walker Transportation Private Auto Private Auto Medication Reconcilliation completed & No provided to patient/care provider Clinical Summary of Care Provided Yes Assessment/Plan Assessment/Plan (1) Open wound of left lower leg: CODE(S): S81.802A - Unspecified open wound, left lower leg, initial encounter PLAN: open wound of the left medial calf secondary to laceration to the depth of the subcutaneous tissue (2) Leg edema: CODE(S): R60.0 - Localized edema (3) Ulcer of left lower leg: CODE(S): L97.929 - Non-pressure chronic ulcer of unspecified part of left lower leg with unspecified severity PLAN: Plan I performed debridement of her LLE ulcer today and she tolerated this well; wound bed remains with subcutaneous depth and healthy appearing pink granulation tissue without active bleeding or signs of infection. For wound care: (1) Cleanse the wound with antibacterial soap and water, pat gently to dry (2) Apply Pomogran lightly moistened to the wound bed (3) Cover with foam border dressing such as [place]-SAP or Mepilex (4) Change every other day or more often as needed to keep clean and dry. Given her increased lower extremity edema, I have advised that she contact her raw mill operator to inform them and to see if it may be appropriate to do a short course of increased diuretic therapy. In addition, we will increase the strength of her tubigrips for added compression. I did examine her R clavicle and as noted she does have superior displacement/deformity associated with prior fracture; the skin overlying this area has appearance consistent with early stage I pressure injury with nonblancheable erythema, tenderness, and thin appearance. We discussed that applying external padding will help to protect this area from added pressure; however, the internal pressure from the displaced bone is not something she can modify short of surgical intervention unfortunately. She has met with orthopedics to consider intervention for this reason and I do think it would be reasonable for the purpose of reducing the risk for progressive pressure injury in the area but, of course, we discussed would defer to orthopedics judgement regarding surgical risk vs benefit. Return to the wound center in 1 week, sooner as needed.
--- NOTE | 2025-05-27 10:38 | WC ---
PHOTO-LEFT MEDIAL LEG 05/26/25
[2025-06-02 14:51] VITALS: BP 116/66; PULSE 77; RESP 18; TEMP 36.5; BMI 22.3
--- NOTE | 2025-06-02 16:19 | PN.PCM_ITS ---
History of Present Illness Date of Service: 06/02/25 Chief Complaint: L calf laceration History of Wound: Lauren Alcaraz is an 84 y/o female who presents today for evaluation and management of a LLE laceration. On 05/02 she had inadvertently injured her leg at home leading to a laceration; she presented initially to urgent care where the wound was cleansed and steri-strips applied but due to continued bleeding she presented to the [facility] ER on 05/03 where steri-strips were reapplied (laceration noted to be 3.5cm in length) and was recommended to hold her anticoagulation for a few days to reduce bleeding which she did. She was seen by her PCP Dr. Perry 05/11/25 and referred to wound care due to concern for high potential for delayed healing. She notes she has not had much oozing from this more recently; there are still steri-strips intact. She is chronically anticoagulated with Eliquis. She does not smoke. She is not diabetic. Subjective Subjective She is doing very well this week. She has been taking excellent care of her wound. She has been taking a higher dose of diuretic since Friday and in combination with the increased compression there has been improvement in her edema. Objective Data Objective Data Vital Signs: Vital Signs Temp Pulse Resp BP 97.7 F L 77 18 116/66 06/02/25 14:51 06/02/25 14:51 06/02/25 14:51 06/02/25 14:51 Weight: 96 lb Body Mass Index (BMI) 22.3 Charges/Coding Visit Charges Office Visits / Consults: 06402 OV L3 Est 20min Physical Exam Const alert, oriented x3 and no apparent distress General Appearance: cooperative and comfortable HEENT normocephalic, head/scalp atraumatic, hearing grossly normal bilaterally, external ears normal and external nose normal Eyes General Eye: normal appearance of both eyes Neck General: normal visual inspection Resp normal respiratory effort, normal air movement, no retractions and no use of accessory muscles Effort and Inspection: able to speak in complete sentences; Negative for labored, grunting or stridor Cardio regular rate Skin Wounds: wounds noted Wound Narrative: L medial calf wound which has reduced in size with pink wound base into the subcutaneous tissue without signs of ischemia and without significant associated slough, erythema, edema, induration, fluctuance, excess warmth, foul odor, drainage, or bleeding. Psych mental status grossly normal Appearance: grossly normal Attitude: calm and engaged Activity / Motor Behavior: appropriate eye contact Speech: normal speech Debridement Note Debridement Note No debridement was completed: No debridement was completed today Post-Debridement Measurements and Additional Note: Post-Debridement Measurements/Treatment WC - Nurse 1 - General Ulcer Assessment Start: 05/19/25 14:54 Freq: Status: Active Protocol: RAFA Activity Type Activity Date Activity User E-sign Co-sign Detail Recorded Client Recorded Date Recorded By Document 05/19/25 14:54 ML [id number] 05/19/25 15:06 ML Document 05/26/25 15:21 RB [id number] 05/26/25 15:24 RB Document 06/02/25 14:51 RB [id number] 06/02/25 14:54 RB 05/19/25 05/26/25 06/02/25 14:54 15:21 14:51 WC - Today's Visit Information Type of service Initial Visit Follow-up Visit Follow-up Visit (Physician/CONFERENCE DIRECTOR (Physician/CONFERENCE DIRECTOR ) ) Arrival Mode Ambulatory Ambulatory Ambulatory, Walker Transfer Assistance None None Manual Patient Identification Verified (Name & Yes Yes Yes ) Patient Requires Transmission-Based No No No Precautions Height and Weight Height 4 ft 7 in Weight 96 lb Weight in Pounds 96.0 lbs Body Mass Index (BMI) 22.3 22.3 22.3 BMI Classification Normal Normal Normal Vital Signs Temperature (97.8 F-99.1 F) 97.3 F L 97 F L 97.7 F L Temperature Source Temporal Temporal Temporal Pulse Rate (60-100) 73 78 77 Pulse Location Monitor Monitor Monitor Respiratory Rate (12-18) 18 18 18 Respiratory rate source Monitor Observation Observation Blood Pressure (90/60-120/80) 128/94 H 129/70 H 116/66 Blood Pressure Mean (mm Hg) 105 89 82 Source Monitor Monitor Monitor Position Semi-Fowlers Semi-Fowlers Sitting Blood Pressure Location Left Arm Left Arm Left Arm History Since Last Visit- (Skip if this is Patient's initial visit) Have you changed medications since your No No last visit? Any new allergies or adverse reactions No No Had a fall/change in ADL's that may No No increase risk of falls Signs or symptoms of abuse and/or No No neglect since last visit Have you been in the hospital since your No No last visit? Has dressing in place as prescribed Yes Yes Has compression in place as prescribed Yes Yes Has offloadiing in place as prescribed N/A N/A Experienced any changes in pain level or No No management Left Footwear Regular Shoe Regular Shoe Right Footwear Regular Shoe Regular Shoe Pain Scale: 0-10 Numeric Is Patient Pain Free? No Yes Yes Culture/Baptism/[employer] Cultural/Baptism Needs that may affect No Treatment Plan Would you allow our hospital filler operator to No meet you for the purpose of spiritual/ emotional support? [employer] to contact place of anabaptism No Teaching: Wound Center *Welcome to the Wound Center -Person Taught Patient,Family -Teaching Method Discussion, Demonstration -Response to teaching Verbalize Understanding WC - Nurse 1 - General Ulcer Measurement Start: 05/19/25 14:54 Freq: Status: Active Protocol: Activity Type Activity Date Activity User E-sign Co-sign Detail Recorded Client Recorded Date Recorded By Document 05/19/25 14:54 ML [id number] 05/19/25 15:06 ML Document 05/26/25 15:21 RB [id number] 05/26/25 15:24 RB Document 06/02/25 14:51 RB [id number] 06/02/25 14:54 RB 05/19/25 05/26/25 06/02/25 14:54 15:21 14:51 Wound Center Nurse 1 1 LLE medial -Combined with other wound No No No -Current Size (cm) - Length 0.1 0.4 0.1 -Current Size (cm) - Width 0.1 2.5 0.6 -Current Size (cm) - Depth 0.1 0.1 0.2 -Total Square Cm 0.01 1.00 0.06 -Photo Taken Yes Yes Yes -Tunneling No No No -Undermining/Tunneling No No No -Circular Undermining No No No -Exudate Amt Medium Medium Medium -Exudate Type Serosanguineous Serosanguineous Serosanguineous -Wound Margin Distinct, Distinct, Distinct, Outline Outline Outline Attached Attached Attached -Granulation Amt Small (1-33%) Medium (34-66%) Medium (34-66%) -Granulation Quality [place],Red [place] Hyper- granulation, [place] -Slough/Fibrin Yes Yes -Necrosis Amt Large (67-100%) Medium (34-66%) Small (1-33%) -Necrotic Tissue Type Adherent Slough Adherent Slough Adherent Slough -Structure Exposed N/A N/A N/A -Texture (Tiffany-wound Skin Appearance) Assessed, Assessed Assessed Scarring -Moisture (Tiffany-wound Skin Appearance) Assessed Assessed Assessed -Color (Tiffany-wound Skin Appearance) Assessed Assessed Assessed -Temperature (Tiffany-wound Skin No Abnormality No Abnormality No Abnormality Appearance) (Pt Warm) (Pt Warm) (Pt Warm) -Tenderness on Palpation (Tiffany-wound No No No Skin Appearance) -Ulcer Cleansing Wound Cleanser Wound Cleanser Wound Cleanser -Foul Odor after Cleansing No No No -Anesthetic Used 4% Lidocaine 5% Lidocaine 5% Lidocaine Solution Gel Gel Lower Limb Edema Present Yes Yes Yes Right Calf (cm) 32.5 Right Ankle (cm) 22 Left Calf (cm) 35.6 33 32 Left Ankle (cm) 23.6 26.5 23.7 WC - Nurse 2 - General Ulcer CM Notes Start: 05/19/25 14:54 Freq: Status: Active Protocol: Activity Type Activity Date Activity User E-sign Co-sign Detail Recorded Client Recorded Date Recorded By Document 05/19/25 15:42 [id number] 05/19/25 15:50 GM Document 05/26/25 15:28 [id number] 05/26/25 15:36 GM Document 06/02/25 15:04 [id number] 06/02/25 15:05 05/19/25 05/26/25 06/02/25 15:42 15:28 15:04 Wound Center Nurse 2 1 LLE medial -Time 15:42 15:28 15:04 -Correct Patient Yes Yes Yes -Correct Side, Site, Position Yes Yes Yes -Correct Procedure Yes Yes No -Procedure Performed Yes Yes No -Type of Procedure Debridement Debridement -Clinical Debridement Epidermis / Subcutaneous Dermis -Tissue Removed Epidermis, Subcutaneous Dermis -Post Debridement (cm) - Length 0.3 0.3 -Post Debridement (cm) - Width 2.8 1.6 -Post Debridement (cm) - Depth 0.2 0.2 -Total Square (Post) (cm) 0.84 0.48 -Area of Debridement (cm) - Length 0.3 0.3 -Area of Debridement (cm) - Width 2.8 1.6 -Total Square (Area) (cm) 0.84 0.48 -Tunneling No No No -Undermining/Tunneling No No No -Circular Undermining No No No -Wound/Ulcer Outcome Not Healed Not Healed Not Healed -Ulcer Cleansing Rinsed/ Rinsed/ Not Cleansed Irrigated with Irrigated with Saline Saline -Foul Odor after Cleansing No No No -Bioengineered Tissue No No No -Bleeding Controlled with Pressure Pressure NA -Treatment Response Procedure Procedure Tolerated Well Tolerated Well -Offloading No No No -Debridement - Open, 1st 20sq cm Yes -Debridement - Subq, 1st 20sq cm Yes Pain Scale: 0-10 Numeric Is Patient Pain Free? Yes Yes Yes - Nurse 3 - General Ulcer D/C NN Start: 05/19/25 14:54 Freq: Status: Active Protocol: Activity Type Activity Date Activity User E-sign Co-sign Detail Recorded Client Recorded Date Recorded By Document 05/19/25 16:15 DS [id number] 05/19/25 16:21 DS Document 05/26/25 15:53 RB [id number] 05/26/25 15:56 RB Document 06/02/25 15:15 GM [id number] 06/02/25 15:15 GM 05/19/25 05/26/25 06/02/25 16:15 15:53 15:15 Wound Care Center Nurse 3 1 LLE medial -Ulcer Cleansing Not Cleansed -Foul Odor after Cleansing No -Primary Dressing Applied Promogran, Promogran, Promogran, Silicone Border Silicone Border Silicone Border Foam 4x4 Foam AG 3.6x4 Foam 4x4 -Promogran 1 1 1 -Silicone Border Foam AG 3.6x4 2 -Silicone Border Foam 4x4 1 1 LLE -Tubular Bandage Single Layer -Size of Tubigrip Used Size D -Size D ($) 2 Treatment Response Procedure Tolerated Well Pain Scale: 0-10 Numeric Is Patient Pain Free? Yes Yes Yes WC - Visit Discharge Discharge Condition Stable Stable Stable Ambulatory Status Ambulatory, Ambulatory Ambulatory, Walker Walker Transportation Private Auto Private Auto Private Auto Medication Reconcilliation completed & No provided to patient/care provider Clinical Summary of Care Provided Yes Assessment/Plan Assessment/Plan (1) Open wound of left lower leg: CODE(S): S81.802A - Unspecified open wound, left lower leg, initial encounter PLAN: open wound of the left medial calf secondary to laceration to the depth of the subcutaneous tissue (2) Leg edema: CODE(S): R60.0 - Localized edema (3) Ulcer of left lower leg: CODE(S): L97.929 - 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 There was no significant slough or bioburden today and therefore I did not perform a debridement. For wound care: (1) Cleanse the wound with antibacterial soap and water, pat gently to dry (2) Apply Pomogran lightly moistened to the wound bed (3) Cover with foam border dressing such as [place]-SAP or Mepilex (4) Change every other day or more often as needed to keep clean and dry. We will continue with high-strength tubigrip for compression. I am out next week, will plan for follow-up in 2 weeks.
--- NOTE | 2025-06-03 10:32 | WC ---
PHOTO-LEFT MED LEG 06/02/25
[2025-06-16 15:36] VITALS: BP 146/75; PULSE 70; RESP 16; TEMP 36.6; BMI 22.3
--- NOTE | 2025-06-16 19:46 | PCM.WC.PN ---
History of Present Illness Date of Service: 06/16/25 Chief Complaint: L calf laceration History of Wound: Lauren Alcaraz is an 84 y/o female who presents today for evaluation and management of a LLE laceration. On 05/02 she had inadvertently injured her leg at home leading to a laceration; she presented initially to urgent care where the wound was cleansed and steri-strips applied but due to continued bleeding she presented to the [facility] ER on 05/03 where steri-strips were reapplied (laceration noted to be 3.5cm in length) and was recommended to hold her anticoagulation for a few days to reduce bleeding which she did. She was seen by her PCP Dr. Perry 05/11/25 and referred to wound care due to concern for high potential for delayed healing. She notes she has not had much oozing from this more recently; there are still steri-strips intact. She is chronically anticoagulated with Eliquis. She does not smoke. She is not diabetic. Subjective Subjective Lauren returns today for reassessment of her L calf wound; she reports this is appearing much improved. Unfortunately, since her last visit, she has had true skin breakdown overlying her R clavicle. As a result, her surgery for planned resection has been moved up to 06/[address] Burleson. Objective Data Objective Data Vital Signs: Vital Signs Temp Pulse Resp BP O2 Del Method 97.8 F 70 16 146/75 H Room Air 06/16/25 15:36 06/16/25 15:36 06/16/25 15:36 06/16/25 15:36 06/16/25 15:36 Oxygen Delivery Method Room Air Weight: 96 lb Body Mass Index (BMI) 22.3 Charges/Coding Visit Charges Office Visits / Consults: 86983 OV L3 Est 20min Physical Exam Const alert, oriented x3 and no apparent distress General Appearance: cooperative and comfortable HEENT normocephalic, head/scalp atraumatic, hearing grossly normal bilaterally, external ears normal and external nose normal Eyes General Eye: normal appearance of both eyes Neck General: normal visual inspection Resp normal respiratory effort, normal air movement, no retractions and no use of accessory muscles Effort and Inspection: able to speak in complete sentences; Negative for labored, grunting or stridor Cardio regular rate Skin Wounds: wounds noted Wound Narrative: L medial calf wound is fully epithelialized this week. No new skin breakdown on the calf, no surrounding erythema/focal edema/induration/drainage. Her R clavicle is fractured and displaced. The skin immediately overlying this has persistent red discoloration consistent with early pressure injury, but centrally there is complete skin breakdown with full thickness wound; there is no exposed bone; wound base is pink with moderate slough. There is no excessive warmth, significant erythema, drainage, or foul odor to suggest infection. Psych mental status grossly normal Appearance: grossly normal Attitude: calm and engaged Activity / Motor Behavior: appropriate eye contact Speech: normal speech Debridement Note Debridement Note No debridement was completed: No debridement was completed today Post-Debridement Measurements and Additional Note: Post-Debridement Measurements/Treatment - Nurse 1 - General Ulcer Assessment Start: 05/19/25 14:54 Freq: Status: Active Protocol: RAFA Activity Type Activity Date Activity User E-sign Co-sign Detail Recorded Client Recorded Date Recorded By Document 05/19/25 14:54 ML [id number] 05/19/25 15:06 ML Document 05/26/25 15:21 RB [id number] 05/26/25 15:24 RB Document 06/02/25 14:51 RB [id number] 06/02/25 14:54 RB Document 06/16/25 15:36 TS [id number] 06/16/25 15:42 TS 05/19/25 05/26/25 06/02/25 14:54 15:21 14:51 - Today's Visit Information Type of service Initial Visit Follow-up Visit Follow-up Visit (Physician/INTELLECTUAL PROPERTY LAWYER (Physician/INTELLECTUAL PROPERTY LAWYER ) ) Arrival Mode Ambulatory Ambulatory Ambulatory, Walker Transfer Assistance None None Manual Patient Identification Verified (Name & Yes Yes Yes ) Patient Requires Transmission-Based No No No Precautions Safety Precautions Height and Weight Height 4 ft 7 in Weight 96 lb Weight in Pounds 96.0 lbs Body Mass Index (BMI) 22.3 22.3 22.3 BMI Classification Normal Normal Normal Vital Signs Temperature (97.8 F-99.1 F) 97.3 F L 97 F L 97.7 F L Temperature Source Temporal Temporal Temporal Pulse Rate (60-100) 73 78 77 Pulse Location Monitor Monitor Monitor Respiratory Rate (12-18) 18 18 18 Respiratory rate source Monitor Observation Observation Oxygen Delivery Method Blood Pressure (90/60-120/80) 128/94 H 129/70 H 116/66 Blood Pressure Mean (mm Hg) 105 89 82 Source Monitor Monitor Monitor Position Semi-Fowlers Semi-Fowlers Sitting Blood Pressure Location Left Arm Left Arm Left Arm History Since Last Visit- (Skip if this is Patient's initial visit) Have you changed medications since your No No last visit? Any new allergies or adverse reactions No No Had a fall/change in ADL's that may No No increase risk of falls Signs or symptoms of abuse and/or No No neglect since last visit Have you been in the hospital since your No No last visit? Has dressing in place as prescribed Yes Yes Has compression in place as prescribed Yes Yes Has offloadiing in place as prescribed N/A N/A Experienced any changes in pain level or No No management Left Footwear Regular Shoe Regular Shoe Right Footwear Regular Shoe Regular Shoe Pain Scale: 0-10 Numeric Is Patient Pain Free? No Yes Yes Culture/Sabianist/Hand Zipper Trimmer Cultural/Sabianist Needs that may affect No Treatment Plan Would you allow our hospital time cycle operator to No meet you for the purpose of spiritual/ emotional support? Hand Zipper Trimmer to contact place of restorationist No Teaching: Wound Center *Welcome to the Wound Center -Person Taught Patient,Family -Teaching Method Discussion, Demonstration -Response to teaching Verbalize Understanding 06/16/25 15:36 WC - Today's Visit Information Type of service Follow-up Visit (Physician/INTELLECTUAL PROPERTY LAWYER ) Arrival Mode Ambulatory Transfer Assistance Patient Identification Verified (Name & No ) Patient Requires Transmission-Based No Precautions Safety Precautions Fall Prevention Height and Weight Height Weight Weight in Pounds Body Mass Index (BMI) 22.3 BMI Classification Normal Vital Signs Temperature (97.8 F-99.1 F) 97.8 F Temperature Source Temporal Pulse Rate (60-100) 70 Pulse Location Monitor Respiratory Rate (12-18) 16 Respiratory rate source Observation Oxygen Delivery Method Room Air Blood Pressure (90/60-120/80) 146/75 H Blood Pressure Mean (mm Hg) 98 Source Monitor Position Sitting Blood Pressure Location Right Arm History Since Last Visit- (Skip if this is Patient's initial visit) Have you changed medications since your No last visit? Any new allergies or adverse reactions No Had a fall/change in ADL's that may No increase risk of falls Signs or symptoms of abuse and/or No neglect since last visit Have you been in the hospital since your No last visit? Has dressing in place as prescribed Yes Has compression in place as prescribed N/A Has offloadiing in place as prescribed N/A Experienced any changes in pain level or No management Left Footwear Regular Shoe Right Footwear Regular Shoe Pain Scale: 0-10 Numeric Is Patient Pain Free? Yes Culture/Sabianist/Hand Zipper Trimmer Cultural/Sabianist Needs that may affect Treatment Plan Would you allow our hospital time cycle operator to meet you for the purpose of spiritual/ emotional support? Hand Zipper Trimmer to contact place of restorationist Teaching: Wound Center *Welcome to the Wound Center -Person Taught -Teaching Method -Response to teaching WC - Nurse 1 - General Ulcer Measurement Start: 05/19/25 14:54 Freq: Status: Active Protocol: Activity Type Activity Date Activity User E-sign Co-sign Detail Recorded Client Recorded Date Recorded By Document 05/19/25 14:54 ML [id number] 05/19/25 15:06 ML Document 05/26/25 15:21 RB [id number] 05/26/25 15:24 RB Document 06/02/25 14:51 RB [id number] 06/02/25 14:54 RB Document 06/16/25 15:36 TS [id number] 06/16/25 15:42 TS 05/19/25 05/26/25 06/02/25 14:54 15:21 14:51 Wound Center Nurse 1 1 LLE medial -Combined with other wound No No No -Current Size (cm) - Length 0.1 0.4 0.1 -Current Size (cm) - Width 0.1 2.5 0.6 -Current Size (cm) - Depth 0.1 0.1 0.2 -Total Square Cm 0.01 1.00 0.06 -Date of Last Picture (Recall this field) -Photo Taken Yes Yes Yes -Epithelialization -Tunneling No No No -Undermining/Tunneling No No No -Circular Undermining No No No -Exudate Amt Medium Medium Medium -Exudate Type Serosanguineous Serosanguineous Serosanguineous -Wound Margin Distinct, Distinct, Distinct, Outline Outline Outline Attached Attached Attached -Granulation Amt Small (1-33%) Medium (34-66%) Medium (34-66%) -Granulation Quality [place],Red [place] Hyper- granulation, [place] -Slough/Fibrin Yes Yes -Necrosis Amt Large (67-100%) Medium (34-66%) Small (1-33%) -Necrotic Tissue Type Adherent Slough Adherent Slough Adherent Slough -Structure Exposed N/A N/A N/A -Texture (Tiffany-wound Skin Appearance) Assessed, Assessed Assessed Scarring -Moisture (Tiffany-wound Skin Appearance) Assessed Assessed Assessed -Color (Tiffany-wound Skin Appearance) Assessed Assessed Assessed -Temperature (Tiffany-wound Skin No Abnormality No Abnormality No Abnormality Appearance) (Pt Warm) (Pt Warm) (Pt Warm) -Tenderness on Palpation (Tiffany-wound No No No Skin Appearance) -Ulcer Cleansing Wound Cleanser Wound Cleanser Wound Cleanser -Foul Odor after Cleansing No No No -Anesthetic Used 4% Lidocaine 5% Lidocaine 5% Lidocaine Solution Gel Gel Lower Limb Edema Present Yes Yes Yes Right Calf (cm) 32.5 Right Ankle (cm) 22 Left Calf (cm) 35.6 33 32 Left Ankle (cm) 23.6 26.5 23.7 06/16/25 15:36 Wound Center Nurse 1 1 LLE medial -Combined with other wound -Current Size (cm) - Length 0.1 -Current Size (cm) - Width 0.1 -Current Size (cm) - Depth 0.1 -Total Square Cm 0.01 -Date of Last Picture (Recall this 06/16/25 field) -Photo Taken Yes -Epithelialization Large 67-100% -Tunneling No -Undermining/Tunneling No -Circular Undermining No -Exudate Amt None Present -Exudate Type -Wound Margin Distinct, Outline Attached -Granulation Amt -Granulation Quality -Slough/Fibrin No -Necrosis Amt -Necrotic Tissue Type -Structure Exposed None/Limited to Skin Breakdown -Texture (Tiffany-wound Skin Appearance) Assessed -Moisture (Tiffany-wound Skin Appearance) Assessed -Color (Tiffany-wound Skin Appearance) Assessed -Temperature (Tiffany-wound Skin No Abnormality Appearance) (Pt Warm) -Tenderness on Palpation (Tiffany-wound No Skin Appearance) -Ulcer Cleansing Soap and Water -Foul Odor after Cleansing No -Anesthetic Used 5% Lidocaine Gel Lower Limb Edema Present Right Calf (cm) Right Ankle (cm) Left Calf (cm) Left Ankle (cm) WC - Nurse 2 - General Ulcer CM Notes Start: 05/19/25 14:54 Freq: Status: Active Protocol: Activity Type Activity Date Activity User E-sign Co-sign Detail Recorded Client Recorded Date Recorded By Document 05/19/25 15:42 [id number] 05/19/25 15:50 Document 05/26/25 15:28 [id number] 05/26/25 15:36 GM Document 06/02/25 15:04 [id number] 06/02/25 15:05 GM Document 06/16/25 15:53 [id number] 06/16/25 15:57 GM 05/19/25 05/26/25 06/02/25 15:42 15:28 15:04 Wound Center Nurse 2 #2 Right Clavicle -Time -Correct Patient -Correct Side, Site, Position -Correct Procedure -Procedure Performed -Type of Procedure -Clinical Debridement -Tissue Removed -Post Debridement (cm) - Length -Post Debridement (cm) - Width -Post Debridement (cm) - Depth -Total Square (Post) (cm) -Area of Debridement (cm) - Length -Area of Debridement (cm) - Width -Total Square (Area) (cm) -Tunneling -Undermining/Tunneling -Circular Undermining -Wound/Ulcer Outcome -Ulcer Cleansing -Foul Odor after Cleansing -Bioengineered Tissue -Bleeding Controlled with -Treatment Response -Debridement - Subq, 1st 20sq cm 1 LLE medial -Time 15:42 15:28 15:04 -Correct Patient Yes Yes Yes -Correct Side, Site, Position Yes Yes Yes -Correct Procedure Yes Yes No -Procedure Performed Yes Yes No -Type of Procedure Debridement Debridement -Clinical Debridement Epidermis / Subcutaneous Dermis -Tissue Removed Epidermis, Subcutaneous Dermis -Post Debridement (cm) - Length 0.3 0.3 -Post Debridement (cm) - Width 2.8 1.6 -Post Debridement (cm) - Depth 0.2 0.2 -Total Square (Post) (cm) 0.84 0.48 -Area of Debridement (cm) - Length 0.3 0.3 -Area of Debridement (cm) - Width 2.8 1.6 -Total Square (Area) (cm) 0.84 0.48 -Tunneling No No No -Undermining/Tunneling No No No -Circular Undermining No No No -Wound/Ulcer Outcome Not Healed Not Healed Not Healed -Ulcer Cleansing Rinsed/ Rinsed/ Not Cleansed Irrigated with Irrigated with Saline Saline -Foul Odor after Cleansing No No No -Bioengineered Tissue No No No -Bleeding Controlled with Pressure Pressure NA -Treatment Response Procedure Procedure Tolerated Well Tolerated Well -Offloading No No No -Debridement - Open, 1st 20sq cm Yes -Debridement - Subq, 1st 20sq cm Yes Pain Scale: 0-10 Numeric Is Patient Pain Free? Yes Yes Yes 06/16/25 15:53 Wound Center Nurse 2 #2 Right Clavicle -Time 15:56 -Correct Patient Yes -Correct Side, Site, Position Yes -Correct Procedure Yes -Procedure Performed Yes -Type of Procedure Debridement -Clinical Debridement Subcutaneous -Tissue Removed Subcutaneous -Post Debridement (cm) - Length 0.5 -Post Debridement (cm) - Width 0.5 -Post Debridement (cm) - Depth 0.1 -Total Square (Post) (cm) 0.25 -Area of Debridement (cm) - Length 0.5 -Area of Debridement (cm) - Width 0.5 -Total Square (Area) (cm) 0.25 -Tunneling No -Undermining/Tunneling No -Circular Undermining No -Wound/Ulcer Outcome Not Healed -Ulcer Cleansing Not Cleansed -Foul Odor after Cleansing No -Bioengineered Tissue No -Bleeding Controlled with NA -Treatment Response Procedure Tolerated Well -Debridement - Subq, 1st 20sq cm Yes 1 LLE medial -Time 15:55 -Correct Patient Yes -Correct Side, Site, Position Yes -Correct Procedure No -Procedure Performed No -Type of Procedure -Clinical Debridement -Tissue Removed -Post Debridement (cm) - Length -Post Debridement (cm) - Width -Post Debridement (cm) - Depth -Total Square (Post) (cm) -Area of Debridement (cm) - Length -Area of Debridement (cm) - Width -Total Square (Area) (cm) -Tunneling No -Undermining/Tunneling No -Circular Undermining No -Wound/Ulcer Outcome Healed- Epithelialized -Ulcer Cleansing -Foul Odor after Cleansing -Bioengineered Tissue -Bleeding Controlled with -Treatment Response -Offloading -Debridement - Open, 1st 20sq cm -Debridement - Subq, 1st 20sq cm Pain Scale: 0-10 Numeric Is Patient Pain Free? Yes WC - Nurse 3 - General Ulcer D/C NN Start: 05/19/25 14:54 Freq: Status: Active Protocol: Activity Type Activity Date Activity User E-sign Co-sign Detail Recorded Client Recorded Date Recorded By Document 05/19/25 16:15 DS [id number] 05/19/25 16:21 DS Document 05/26/25 15:53 RB [id number] 05/26/25 15:56 RB Document 06/02/25 15:15 GM [id number] 06/02/25 15:15 GM Document 06/16/25 16:06 TS [id number] 06/16/25 16:12 TS 05/19/25 05/26/25 06/02/25 16:15 15:53 15:15 Wound Care Center Nurse 3 #2 Right Clavicle -Ulcer Cleansing -Primary Dressing Applied -Promogran -Silicone Border Foam 4x4 1 LLE medial -Ulcer Cleansing Not Cleansed -Foul Odor after Cleansing No -Primary Dressing Applied Promogran, Promogran, Promogran, Silicone Border Silicone Border Silicone Border Foam 4x4 Foam AG 3.6x4 Foam 4x4 -Promogran 1 1 1 -Silicone Border Foam AG 3.6x4 2 -Silicone Border Foam 4x4 1 1 LLE -Tubular Bandage Single Layer -Size of Tubigrip Used Size D -Size D ($) 2 Treatment Response Procedure Tolerated Well Pain Scale: 0-10 Numeric Is Patient Pain Free? Yes Yes Yes WC - Visit Discharge Discharge Condition Stable Stable Stable Ambulatory Status Ambulatory, Ambulatory Ambulatory, Walker Walker Transportation Private Auto Private Auto Private Auto Medication Reconcilliation completed & No provided to patient/care provider Clinical Summary of Care Provided Yes 06/16/25 16:06 Wound Care Center Nurse 3 #2 Right Clavicle -Ulcer Cleansing Rinsed/ Irrigated with Saline -Primary Dressing Applied Promogran, Silicone Border Foam 4x4 -Promogran 1 -Silicone Border Foam 4x4 1 1 LLE medial -Ulcer Cleansing Rinsed/ Irrigated with Saline -Foul Odor after Cleansing -Primary Dressing Applied Silicone Border Foam 4x4 -Promogran -Silicone Border Foam AG 3.6x4 -Silicone Border Foam 4x4 1 LLE -Tubular Bandage -Size of Tubigrip Used -Size D ($) Treatment Response Pain Scale: 0-10 Numeric Is Patient Pain Free? 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 PLAN: Plan The L calf is healed today. I do recommend continuing to pad and protect the area for an additional ~10 days to allow the delicate new skin to strengthen. Unfortunately, she has developed a true pressure ulceration overlying the displaced portion of her R clavicle; there is no exposed bone. For wound care: (1) Cleanse the wound with antibacterial soap and water, pat gently to dry (2) Apply Pomogran lightly moistened to the wound bed (3) Cover with foam border dressing such as [place]-SAP or Mepilex (4) Change every 2-3 days or more often as needed to keep clean and dry. She does have surgical intervention scheduled on 06/24 for the R clavicle. Will plan for return to the office in 2 weeks to reassess, sooner as needed.
--- NOTE | 2025-06-17 07:57 | WC ---
PHOTO-LEFT MEDIAL LEG 06/16/25
== END 2025-06-17 23:59 | disposition home or self-care (01) ==
LOC: WC 15:30
PROVIDERS: PCP Internal Medicine; Referring Provider Internal Medicine; Visit Provider Physician Assistant
DX: S81.812A Laceration without foreign body, left lower leg, initial encounter (principal); L97.929 Non-pressure chronic ulcer of unspecified part of left lower leg with unspecified severity; I25.10 Atherosclerotic heart disease of native coronary artery without angina pectoris; Z90.710 Acquired absence of both cervix and uterus; Z86.718 Personal history of other venous thrombosis and embolism; Z79.82 Long term (current) use of aspirin; Z79.899 Other long term (current) drug therapy; I10 Essential (primary) hypertension; Z79.01 Long term (current) use of anticoagulants; E78.00 Pure hypercholesterolemia, unspecified; R60.0 Localized edema; X58.XXXA Exposure to other specified factors, initial encounter; Y92.009 Unspecified place in unspecified non-institutional (private) residence as the place of occurrence of the external cause; Z90.49 Acquired absence of other specified parts of digestive tract; S42.009K Fracture of unspecified part of unspecified clavicle, subsequent encounter for fracture with nonunion; L98.A1 Non-pressure chronic ulcer of upper arm
CPT/HCPCS: 11042; 97597; 99213; G0463

== ENCOUNTER 2025-06-24 12:04 | Day surgery (SDC) | payer MEDICARE, OTHER, SELFPAY ==
--- NOTE | 2025-06-21 17:05 | PAT.ANESEVAL ---
Pre-Assessment Diagnosis/Proposed Procedure Planned Operative Procedure(s): DISTAL CLAVICLE EXICSION Anesthesia History Anesthesia History - special education director: Anesthesia History - special education director Hx Hospitalization No 06/21/25 15:25 Any Problems With Anesthesia No 06/21/25 15:25 Cholinesterase deficiency No 06/21/25 15:25 You/Your Family Experience No 06/21/25 15:25 fever (hyperthermia) with Relationship Recent Exposure to Contagious No 03/11/25 13:22 Disease Does patient have nerve No 06/21/25 15:25 stimulator Patient instructed to have device shut off --Does patient have Pacemaker or ICD? When Was Last Pacemaker Check QUESTION #4 FULL TEXT: You/Your Family Experience fever (hyperthermia) with Anesthesia Last Oral Intake Last Oral intake: Last Oral Intake NPO since Meds taken in AM with sips of water? Meds patient instructed to take am of surgery PONV PONV - special education director: PONV - special education director Female Yes 06/21/25 15:25 HX of Motion Sickness No 06/21/25 15:25 HX of N/V After Surgery Yes 06/21/25 15:25 Non-Smoker Yes 06/21/25 15:25 Duration of Surgery greater Yes 06/21/25 15:25 than 60 minutes Number of Risk Factors 4 06/21/25 15:25 PONV Score Severe Risk 06/21/25 15:25 Height & Weight Height & Weight: Anesthesia: Height & Weight Height 4 ft 7 in 06/13/25 14:15 Respiratory Assessment Respiratory Assessment - special education director: Respiratory Tract Infection Hx - special education director Hx Respiratory Tract Infection No 06/21/25 15:25 STOP Sleep Apnea STOP Sleep Apnea - special education director: STOP Sleep Apnea - special education director Hx Hypertension No 06/21/25 15:25 Hx Sleep Apnea No 06/21/25 15:25 CPAP No 03/11/25 13:22 BIPAP No 03/11/25 13:22 Do you snore loudly (louder No 06/21/25 15:25 than talking or can be heard Do you often feel tired/ No 06/21/25 15:25 fatigued/ sleepy during daytime? Has anyone observed you stop No 06/21/25 15:25 breathing during sleep? STOP Results Negative 06/21/25 15:25 QUESTION #5 FULL TEXT : Do you snore loudly (louder than talking or can be heard through closed doors)? Tobacco Use History Tobacco Use History - special education director: Tobacco Use History - special education director Tobacco Use Smoking Status Never smoker 06/21/25 15:25 Hx Tobacco Use No 06/21/25 15:25 Years Smoking Packs Smoked per Day Smoking Cessation Date was within the last 15 years Hx Smoking Cessation Date Hx Smoking Cessation Counseling Hematologic Medial History Hematologic Hx - special education director: Hematologic Medical Hx - inspector clip on sunglasses Hx of Blood Transfusion No 06/21/25 15:25 Hx of Transfusion in last 3 No 06/21/25 15:25 Months Date of Last Transfusion (if within last 3 months) Ever experience any problems No 06/21/25 15:25 with transfusion(s)? Specify any problems Hx of Preganancy in last 3 N/A 06/21/25 15:25 Months Nurse Filling Out Transfusion [facility] 06/21/25 15:25 & Questions: Date: 06/21/25 06/21/25 15:25 Time: 15:42 06/21/25 15:25 Patient unable to answer at this time (ie. confused, unrespo /Reproduction History /Reproductive History - special education director: /Reproductive Hx- special education director Hx Now Gestational Age (in weeks): EDC: Hx Hx Para Hx Section SAB No 06/21/25 15:25 [facility] Medical History (Updated 06/21/25 @ 15:40 by Marleen Phillip) Wears glasses Open wound On home oxygen therapy History of edema Chest pain Nonunion of fracture of clavicle Preop exam for internal medicine Hematoma of leg Vaginal atrophy Malignant neoplasm of breast (female) Right clavicle fracture Leg edema Open wound of right lower extremity Contusion of right foot Kyphoscoliosis deformity of spine Bee sting Lumbar contusion Contusion of thoracic wall Pain of left lower extremity Contact with and (suspected) exposure to other viral communicable diseases Contusion of left wrist Left elbow contusion Contusion of left shoulder Scalp contusion Injury of left elbow Injury of left shoulder Presence of stent in coronary artery (~1989) Atherosclerotic heart disease of [place] coronary artery without angina pectoris Essential hypertension Influenza A Health care maintenance Falls frequently Cancer Depression Dementia Walker as ambulation aid Arthritis Bladder disease Low iron DVT (deep venous thrombosis) High cholesterol Restless legs Back pain TIA (transient ischemic attack) Seizures Difficulty swallowing Gastric reflux Non-smoker Asthma Shortness of breath on exertion Hx of echocardiogram History of stress test Hypertension Cardiology follow-up encounter History of heart attack Hypertension aquired autoimmune encephalopathy h/o back surgery Heart disease Dementia Partial complex seizures Home Medications Medication Instructions Recorded Last Taken Type L.acidophil-L.casei-B.bifid-B.longum-FOS 1 cap PO DAILY Supplement 09/02/21 02/05/25 History 2 billion cell-50 mg capsule (Probiotic Blend) aspirin 81 mg tablet,delayed 81 mg PO DAILY 01/10/22 06/21/25 History release (Adult Aspirin Regimen) d-mannose 500 mg capsule 500 mg PO DAILY 06/07/22 02/05/25 History famotidine 10 mg tablet 10 mg PO BID 06/07/22 02/05/25 History multivitamin 1 tab PO DAILY 06/07/22 02/05/25 History mirabegron 50 mg tablet,extended 50 mg PO QHS Check with primary 01/29/23 02/05/25 History release 24 hr (Myrbetriq) doctor syringes BD ECLIPSE 04/11/23 Unknown History latanoprost 0.005 % eye drops 1 drp ophthalmic (eye) DAILY 08/13/23 02/05/25 History (Xalatan) nitroglycerin 0.4 mg sublingual 0.4 mg sublingual Q5-15M PRN chest 11/12/23 Unknown Rx tablet pain #25 tabs BD Sry/needle eclips See Rx Instructions IM .COMPLEX 02/23/24 Unknown Rx #12 ea azelastine 137 mcg (0.1 %) nasal 2 spray intranasal BID 03/16/24 Unknown History spray cetirizine 10 mg capsule (Zyrtec) 10 mg PO DAILY PRN allergy symptoms 03/16/24 Unknown History PEP device #1 ea 04/06/24 Unknown Rx apixaban 5 mg tablet (Eliquis) 5 mg PO BID #180 tabs 06/08/24 06/21/25 Rx atorvastatin 40 mg tablet See Rx Instructions .Route 06/08/24 02/05/25 Rx .COMPLEX #90 tabs memantine 10 mg tablet 10 mg PO BID Alzheimer's #180 tabs 06/08/24 02/05/25 Rx pramipexole 0.5 mg tablet 0.5 mg PO BID #180 tabs 06/08/24 02/05/25 Rx vortioxetine 20 mg tablet 20 mg PO DAILY DEPRESSION #90 tabs 06/08/24 02/05/25 Rx (Trintellix) brimonidine 0.2 % eye drops 1 drp ophthalmic (eye) QHS 10/14/24 02/05/25 History olopatadine 0.6 % nasal spray 2 spray intranasal DAILY 10/14/24 Unknown History pantoprazole 40 mg tablet,delayed 40 mg PO DAILY 10/14/24 02/05/25 History release potassium chloride 20 mEq 20 meq PO DAILY 10/14/24 02/05/25 History tablet,extended release(part/cryst) (Klor-Con M) denosumab 60 mg/mL subcutaneous 60 mg subcut [id number] #1 mL 01/24/25 Unknown Rx syringe (Prolia) gabapentin 100 mg capsule 300 mg PO Q12H restless leg(s) 02/03/25 02/05/25 History donepezil 10 mg tablet 10 mg PO DAILY 02/06/25 02/05/25 History dorzolamide 22.3 mg-timolol 6.8 1 drp ophthalmic (eye) BID 02/22/25 Unknown History mg/mL eye drops sennosides 8.6 mg-docusate sodium 1 tab-cap PO PRN 02/22/25 Unknown History 50 mg tablet (Senna Plus) albuterol sulfate 2.5 mg/3 mL 2.5 mg (3 mL) inhalation Q6H PRN 03/10/25 Unknown Rx (0.083 %) solution for nebulization Sob &/Or Wheezing #180 mL ergocalciferol (vitamin D2) 1,250 1,250 mcg PO Q7D #12 caps 04/13/25 Unknown Rx mcg (50,000 unit) capsule (Vitamin D2) lacosamide 100 mg tablet (Vimpat) 100 mg PO BID 20 days #40 tabs 06/13/25 Unknown Rx levothyroxine 50 mcg tablet 50 mcg PO DAILY Thyroid #90 tabs 06/13/25 Unknown Rx cephalexin 250 mg capsule 250 mg PO Q8H #20 caps 06/20/25 Unknown Rx tramadol 50 mg tablet 25 mg PO BID pain 06/20/25 Unknown History furosemide 20 mg tablet 20 mg PO DAILY edema 06/21/25 Unknown History tramadol 50 mg tablet 50 mg PO Q6H PRN pain 06/21/25 Unknown History Allergy/AdvReac Type Severity Reaction Status Date / Time acetaminophen (From Percocet) Allergy Severe confusion Verified 06/21/25 11:32 oxycodone Allergy Severe confusion Verified 06/21/25 11:32 doxycycline Allergy Mild Vomiting Verified 06/21/25 11:32 hydromorphone (From Dilaudid) Allergy Mild confusion Verified 06/21/25 11:32 lamotrigine (From Lamictal) Allergy Lip Verified 06/21/25 11:32 Swelling moxifloxacin HCl (From Allergy Other Verified 06/21/25 11:32 Avelox) propoxyphene napsylate (From Allergy Other Verified 06/21/25 11:32 Darvocet-N) zolpidem (From Ambien) Allergy unknown Verified 06/21/25 11:32 hydrocodone AdvReac Severe Confusion Verified 06/21/25 11:32 zolpidem tartrate (From AdvReac Other Verified 06/21/25 11:32 Ambien) Family History Mother CVA (cerebral vascular accident) Arthritis Father Myocardial infarction, Onset Age: 40 Alcoholism Hypertension Sister Anemia Grandmother Bowel disease Osteoporosis Ovarian cancer Other Heart disease Surgical History (Updated 06/21/25 @ 15:40 by Marleen Phillip) Hx of heart artery stent H/O: hysterectomy History of repair of hiatal hernia History of cholecystectomy History of hernia surgery Presence of coronary angioplasty implant and graft (~1989) History of hammer toe correction History of lumbar laminectomy History of carpal tunnel release History of tonsillectomy and adenoidectomy History of lumpectomy of left breast History of cardiac catheterization History of esophagogastroduodenoscopy (EGD) Hx of colonoscopy Hx of ventral hernia repair Hx of cataract extraction History of laryngoscopy History of appendectomy H/O kyphoplasty Social History household members: spouse housing: house Smoking Status: Never smoker alcohol intake: current alcohol intake frequency: a few times a week Alcohol type: wine substance use type: does not use caffeine: Yes Type: coffee Number of servings: 1 what type of physical activity do you participate in: other details: PT 3x weekly frequency: 3-4 times per week do you feel safe at home: Yes Audit: Pertinent Findings Pertinent Findings EKG Perinent findings: 03/11/2025. Normal sinus rhythm. Minimal criteria for LVH. Inferior infarct, age undetermined. Stress test pertinent findings: 05/29/2023. EF 89%. Rest and stress nuclear imaging demonstrate relatively uniform tracer uptake and myocardial perfusion appearing within normal limits. Echo (EF%) pertinent findings: 05/29/2023. EF is 65%. PASP is 40 mmHg. No aortic stenosis noted. Consult pertinent findings: 11/12/2023. [facility]. 1. Atherosclerotic heart disease of the [place] coronaries without angina-most recent stress is negative for ischemia (see above). Echo shows that EF of 65% (see above). Stable at this time. Continue current medical therapy. 2. Dizziness-Will check carotids to further assess. Additional pertinent findings: 12/04/2023. Carotid duplex ultrasound. KIMBER with <50% stenosis. LICA with <50% stenosis Recommendation Anesthesia Recommendation Anesthesia recommendation: OPTIMIZED for anesthesia
[2025-06-22 13:52] LABS: Hematocrit 36.2 % (37-47); Hemoglobin 10.9 g/dL (12.0-15.0); Immature Granulocytes Count 0.010 X10^3/uL (0.0-0.0); Mean Corp Hgb Conc 30.1 g/dL (32-36); Mean Corpuscular Volume 87.4 fL (81-99); Mean Platelet Vol. 11.1 fl (6.2-12.0); NRBC Flagged by Analyzer 0 % (0-5); Platelet Count 174 K/mm3 (150-450); RBC Distribution Width CV 15.1 % (11.6-14.6); RBC Distribution Width SD 48.5 fl (35.1-43.9); Red Blood Count 4.14 M/mm3 (4.2-5.4); White Blood Count 3.7 K/mm3 (4.4-11.0)
[2025-06-22 14:03] LABS: Prothrombin Time (Protime)PT. 14.8 SECONDS (11.7-14.9)
[2025-06-22 14:04] LABS: Partial Thromboplast Time 28.0 Seconds (24.1-36.2)
[2025-06-22 15:20] LABS: BUN 24 mg/dL (4-19); Glucose 116 mg/dL (70-99)
[2025-06-22 15:21] LABS: Anion Gap 9 (5-15); BUN/Creat Ratio 25.1 RATIO (10-20); Calcium,Total 9.2 mg/dL (7.6-11.0); Carbon Dioxide 27.0 mmol/L (21.0-32.0); Chloride 103 mmol/L (98-108); Potassium 4.1 mmol/L (3.3-5.1)
--- NOTE | 2025-06-22 15:22 | PAT.ANESEVAL ---
Pre-Assessment Diagnosis/Proposed Procedure Planned Operative Procedure(s): DISTAL CLAVICLE EXICSION Anesthesia History Anesthesia History - behavioral modification assistant: Anesthesia History - behavioral modification assistant Hx Hospitalization No 06/21/25 15:25 Any Problems With Anesthesia No 06/21/25 15:25 Cholinesterase deficiency No 06/21/25 15:25 You/Your Family Experience No 06/21/25 15:25 fever (hyperthermia) with Relationship Recent Exposure to Contagious No 03/11/25 13:22 Disease Does patient have nerve No 06/21/25 15:25 stimulator Patient instructed to have device shut off --Does patient have Pacemaker or ICD? When Was Last Pacemaker Check QUESTION #4 FULL TEXT: You/Your Family Experience fever (hyperthermia) with Anesthesia Last Oral Intake Last Oral intake: Last Oral Intake NPO since Meds taken in AM with sips of water? Meds patient instructed to take am of surgery PONV PONV - behavioral modification assistant: PONV - behavioral modification assistant Female Yes 06/21/25 15:25 HX of Motion Sickness No 06/21/25 15:25 HX of N/V After Surgery Yes 06/21/25 15:25 Non-Smoker Yes 06/21/25 15:25 Duration of Surgery greater Yes 06/21/25 15:25 than 60 minutes Number of Risk Factors 4 06/21/25 15:25 PONV Score Severe Risk 06/21/25 15:25 Height & Weight Height & Weight: Anesthesia: Height & Weight Height 4 ft 7 in 06/13/25 14:15 Respiratory Assessment Respiratory Assessment - behavioral modification assistant: Respiratory Tract Infection Hx - behavioral modification assistant Hx Respiratory Tract Infection No 06/21/25 15:25 STOP Sleep Apnea STOP Sleep Apnea - behavioral modification assistant: STOP Sleep Apnea - behavioral modification assistant Hx Hypertension No 06/21/25 15:25 Hx Sleep Apnea No 06/21/25 15:25 CPAP No 03/11/25 13:22 BIPAP No 03/11/25 13:22 Do you snore loudly (louder No 06/21/25 15:25 than talking or can be heard Do you often feel tired/ No 06/21/25 15:25 fatigued/ sleepy during daytime? Has anyone observed you stop No 06/21/25 15:25 breathing during sleep? STOP Results Negative 06/21/25 15:25 QUESTION #5 FULL TEXT : Do you snore loudly (louder than talking or can be heard through closed doors)? 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 Specify any problems Hx of Preganancy in last 3 N/A 06/21/25 15:25 Months Nurse Filling Out Transfusion JAY 06/21/25 15:25 & Questions: Date: 06/21/25 06/21/25 15:25 Time: 15:42 06/21/25 15:25 Patient unable to answer at this time (ie. confused, unrespo /Reproduction History /Reproductive History - behavioral modification assistant: /Reproductive Hx- behavioral modification assistant Hx Now Gestational Age (in weeks): EDC: Hx Hx Para Hx Section SAB No 06/21/25 15:25 Does the father of the baby or his family experience fever w Father of the baby Malignant Hypertension history comment REPLACED BY [facility] Medical History (Updated 06/21/25 @ 15:40 by Marleen Phillip) Wears glasses Open wound On home oxygen therapy History of edema Chest pain Nonunion of fracture of clavicle Preop exam for internal medicine Hematoma of leg Vaginal atrophy Malignant neoplasm of breast (female) Right clavicle fracture Leg edema Open wound of right lower extremity Contusion of right foot Kyphoscoliosis deformity of spine Bee sting Lumbar contusion Contusion of thoracic wall Pain of left lower extremity Contact with and (suspected) exposure to other viral communicable diseases Contusion of left wrist Left elbow contusion Contusion of left shoulder Scalp contusion Injury of left elbow Injury of left shoulder Presence of stent in coronary artery (~1989) Atherosclerotic heart disease of [place] coronary artery without angina pectoris Essential hypertension Influenza A Health care maintenance Falls frequently Cancer Depression Dementia Walker as ambulation aid Arthritis Bladder disease Low iron DVT (deep venous thrombosis) High cholesterol Restless legs Back pain TIA (transient ischemic attack) Seizures Difficulty swallowing Gastric reflux Non-smoker Asthma Shortness of breath on exertion Hx of echocardiogram History of stress test Hypertension Cardiology follow-up encounter History of heart attack Hypertension aquired autoimmune encephalopathy h/o back surgery Heart disease Dementia Partial complex seizures Home Medications Medication Instructions Recorded Last Taken Type L.acidophil-L.casei-B.bifid-B.longum-FOS 1 cap PO DAILY Supplement 09/02/21 02/05/25 History 2 billion cell-50 mg capsule (Probiotic Blend) aspirin 81 mg tablet,delayed 81 mg PO DAILY 01/10/22 06/21/25 History release (Adult Aspirin Regimen) d-mannose 500 mg capsule 500 mg PO DAILY 06/07/22 02/05/25 History famotidine 10 mg tablet 10 mg PO BID 06/07/22 02/05/25 History multivitamin 1 tab PO DAILY 06/07/22 02/05/25 History mirabegron 50 mg tablet,extended 50 mg PO QHS Check with primary 01/29/23 02/05/25 History release 24 hr (Myrbetriq) doctor syringes BD ECLIPSE 04/11/23 Unknown History latanoprost 0.005 % eye drops 1 drp ophthalmic (eye) DAILY 08/13/23 02/05/25 History (Xalatan) nitroglycerin 0.4 mg sublingual 0.4 mg sublingual Q5-15M PRN chest 11/12/23 Unknown Rx tablet pain #25 tabs BD Sry/needle eclips See Rx Instructions IM .COMPLEX 02/23/24 Unknown Rx #12 ea azelastine 137 mcg (0.1 %) nasal 2 spray intranasal BID 03/16/24 Unknown History spray cetirizine 10 mg capsule (Zyrtec) 10 mg PO DAILY PRN allergy symptoms 03/16/24 Unknown History PEP device #1 ea 04/06/24 Unknown Rx apixaban 5 mg tablet (Eliquis) 5 mg PO BID #180 tabs 06/08/24 06/21/25 Rx atorvastatin 40 mg tablet See Rx Instructions .Route 06/08/24 02/05/25 Rx .COMPLEX #90 tabs memantine 10 mg tablet 10 mg PO BID Alzheimer's #180 tabs 06/08/24 02/05/25 Rx pramipexole 0.5 mg tablet 0.5 mg PO BID #180 tabs 06/08/24 02/05/25 Rx vortioxetine 20 mg tablet 20 mg PO DAILY DEPRESSION #90 tabs 06/08/24 02/05/25 Rx (Trintellix) brimonidine 0.2 % eye drops 1 drp ophthalmic (eye) QHS 10/14/24 02/05/25 History olopatadine 0.6 % nasal spray 2 spray intranasal DAILY 10/14/24 Unknown History pantoprazole 40 mg tablet,delayed 40 mg PO DAILY 10/14/24 02/05/25 History release potassium chloride 20 mEq 20 meq PO DAILY 10/14/24 02/05/25 History tablet,extended release(part/cryst) (Klor-Con M) denosumab 60 mg/mL subcutaneous 60 mg subcut [id number] #1 mL 01/24/25 Unknown Rx syringe (Prolia) gabapentin 100 mg capsule 300 mg PO Q12H restless leg(s) 02/03/25 02/05/25 History donepezil 10 mg tablet 10 mg PO DAILY 02/06/25 02/05/25 History dorzolamide 22.3 mg-timolol 6.8 1 drp ophthalmic (eye) BID 02/22/25 Unknown History mg/mL eye drops sennosides 8.6 mg-docusate sodium 1 tab-cap PO PRN 02/22/25 Unknown History 50 mg tablet (Senna Plus) albuterol sulfate 2.5 mg/3 mL 2.5 mg (3 mL) inhalation Q6H PRN 03/10/25 Unknown Rx (0.083 %) solution for nebulization Sob &/Or Wheezing #180 mL ergocalciferol (vitamin D2) 1,250 1,250 mcg PO Q7D #12 caps 04/13/25 Unknown Rx mcg (50,000 unit) capsule (Vitamin D2) lacosamide 100 mg tablet (Vimpat) 100 mg PO BID 20 days #40 tabs 06/13/25 Unknown Rx levothyroxine 50 mcg tablet 50 mcg PO DAILY Thyroid #90 tabs 06/13/25 Unknown Rx cephalexin 250 mg capsule 250 mg PO Q8H #20 caps 06/20/25 Unknown Rx tramadol 50 mg tablet 25 mg PO BID pain 06/20/25 Unknown History furosemide 20 mg tablet 20 mg PO DAILY edema 11/04/25 Unknown History tramadol 50 mg tablet 50 mg PO Q6H PRN pain 06/21/25 Unknown History Allergy/AdvReac Type Severity Reaction Status Date / Time acetaminophen (From Percocet) Allergy Severe confusion Verified 06/21/25 11:32 oxycodone Allergy Severe confusion Verified 06/21/25 11:32 doxycycline Allergy Mild Vomiting Verified 06/21/25 11:32 hydromorphone (From Dilaudid) Allergy Mild confusion Verified 06/21/25 11:32 lamotrigine (From Lamictal) Allergy Lip Verified 06/21/25 11:32 Swelling moxifloxacin HCl (From Allergy Other Verified 06/21/25 11:32 Avelox) propoxyphene napsylate (From Allergy Other Verified 06/21/25 11:32 Darvocet-N) zolpidem (From Ambien) Allergy unknown Verified 06/21/25 11:32 hydrocodone AdvReac Severe Confusion Verified 06/21/25 11:32 zolpidem tartrate (From AdvReac Other Verified 06/21/25 11:32 Ambien) Family History Mother CVA (cerebral vascular accident) Arthritis Father Myocardial infarction, Onset Age: 40 Alcoholism Hypertension Sister Anemia Grandmother Bowel disease Osteoporosis Ovarian cancer Other Heart disease Surgical History (Updated 06/21/25 @ 15:40 by Marleen Phillip) Hx of heart artery stent H/O: hysterectomy History of repair of hiatal hernia History of cholecystectomy History of hernia surgery Presence of coronary angioplasty implant and graft (~1989) History of hammer toe correction History of lumbar laminectomy History of carpal tunnel release History of tonsillectomy and adenoidectomy History of lumpectomy of left breast History of cardiac catheterization History of esophagogastroduodenoscopy (EGD) Hx of colonoscopy Hx of ventral hernia repair Hx of cataract extraction History of laryngoscopy History of appendectomy H/O kyphoplasty Social History household members: spouse housing: house Smoking Status: Never smoker alcohol intake: current alcohol intake frequency: a few times a week Alcohol type: wine substance use type: does not use caffeine: Yes Type: coffee Number of servings: 1 what type of physical activity do you participate in: other details: PT 3x weekly frequency: 3-4 times per week do you feel safe at home: Yes Audit: Pertinent Findings HISTORY of Pertinent Findings History of Pertinent Findings: EKG Pertinent Findings EKG Perinent findings 03/11/2025. Normal sinus 06/21/25 17:08 rhythm. Minimal criteria for LVH. Inferior infarct, age undetermined. Stress Test Pertinent Findings Stress test pertinent findings 05/29/2023. EF 89%. Rest 06/21/25 17:08 and stress nuclear imaging demonstrate relatively uniform tracer uptake and myocardial perfusion appearing within normal limits. Echo Pertinent Findings Echo (EF%) pertinent findings 05/29/2023. EF is 65%. 06/21/25 17:13 PASP is 40 mmHg. No aortic stenosis noted. Consult Pertinent Findings Consult pertinent findings 11/12/2023. [facility]. 06/21/25 17:13 1. Atherosclerotic heart disease of the [place] coronaries without angina- most recent stress is negative for ischemia (see above). Echo shows that EF of 65% (see above). Stable at this time. Continue current medical therapy. 2. Dizziness-Will check carotids to further assess. Additional Pertinent Findings Additional pertinent findings 12/04/2023. Carotid duplex 06/21/25 17:13 ultrasound. KIMBER with <50% stenosis. LICA with <50% stenosis Recommendation Anesthesia Recommendation Anesthesia recommendation: OPTIMIZED for anesthesia
[2025-06-24] VITALS (11 sets, daily range): BP systolic 130–162; BP diastolic 71–92; PULSE 65–74; RESP 14–18; TEMP 36.1–36.9; O2SAT 86–97; BMI 25.3
[2025-06-24] MEDS: Lactated Ringers 1,000 ML 15 ML IV (12:37)
--- NOTE | 2025-06-24 13:06 | PCM.PRE.AN2 ---
ASA Classification* ASA Classification ASA Classification: 3 Assessment & Plan Anesthesia* Anesthesia Assessment Anesthesia Assessment: Discussed sedation and/or anesthesia options, risks, benefits, and alternatives with patient/parents/legal guardian/POA. Questions invited. The patient/parents/legal guardian/POA seems to understand and agrees to proceed with anesthesia plan. Reviewed the physical assessment, medical history, allergy history and patient home medications list prior to surgery/procedure/anesthetic and documented any changes. Performed airway and anesthesia risk assessments. Anesthesia Type Anesthesia Type: General and Block (Consented for interscalene block.) History Source History Obtained from:: Patient and Chart Anesthesia Focused Assessment* Temperature: 97.0 F Pulse Rate: 65 Blood Pressure: 162/92 Respiratory Rate: 18 Pulse Ox: 95 Oxygen Delivery Method: Room Air Airway Assessment Mouth opens: >3 cm Mallampati Score: I Teeth Condition: Caps/Crowns (Patient has several crowns. They are all tight.) Neck Range of motion (ROM): Limited ROM (Severe Restriction) Labs Anesthesia Preop lab: CBC WBC, (4.4-11.0) 3.7 K/mm3 L 06/22/25, 13:41 RBC, (4.2-5.4) 4.14 M/mm3 L 06/22/25, 13:41 Hgb, (12.0-15.0) 10.9 g/dL L 06/22/25, 13:41 Hct, (37-47) 36.2 % L 06/22/25, 13:41 Plt Count, (150-450) 174 K/mm3 06/22/25, 13:41 CHEMISTRY Potassium, (3.3-5.1) 4.1 mmol/L 06/22/25, 13:41 Sodium, (133-145) 140 mmol/L 06/22/25, 13:41 Magnesium, (1.5-2.2) 1.8 mg/dL 06/14/25, 14:49 BUN, (4-19) 24 mg/dL H 06/22/25, 13:41 Creatinine, (0.70-1.20) 0.94 mg/dL 06/22/25, 13:41 Glucose, (70-99) 116 mg/dL H 06/22/25, 13:41 POC Glucose, (70-110) 146 mg/dL H 02/11/21, 05:48 TSH, (0.300-4.200) 3.450 uIU/mL 06/22/25, 13:41 COAG PT, (11.7-14.9) 14.8 SECONDS 06/22/25, 13:41 Pre-Assessment Diagnosis/Proposed Procedure Planned Operative Procedure(s): DISTAL CLAVICLE EXICSION Right Anesthesia History 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 06/21/25 15:25 Cholinesterase deficiency No 06/21/25 15:25 You/Your Family Experience No 06/21/25 15:25 fever (hyperthermia) with Relationship Recent Exposure to Contagious No 06/24/25 12:29 Disease Does patient have nerve No 06/21/25 15:25 stimulator Patient instructed to have device shut off --Does patient have Pacemaker No 06/24/25 12:29 or ICD? When Was Last Pacemaker Check QUESTION #4 FULL TEXT: You/Your Family Experience fever (hyperthermia) with Anesthesia Last Oral Intake Last Oral intake: Last Oral Intake NPO since 07:00 06/24/25 12:29 Meds taken in AM with sips of Yes 06/24/25 12:29 water? Meds patient instructed to take am of surgery Any additional information?: Yes NPO since: 07:00 Meds taken in AM with sips of water?: Yes PONV PONV - assembly line driver: PONV - assembly line driver Female Yes 06/21/25 15:25 HX of Motion Sickness No 06/21/25 15:25 HX of N/V After Surgery No 06/21/25 15:25 Non-Smoker Yes 06/21/25 15:25 Duration of Surgery greater Yes 06/21/25 15:25 than 60 minutes Number of Risk Factors 3 06/21/25 15:25 PONV Score Moderate Risk 06/21/25 15:25 Height & Weight Height & Weight: Anesthesia: Height & Weight Height 4 ft 7 in 06/24/25 12:29 Weight: 49.4 kg 06/24/25 12:29 Body Mass Index (BMI) 25.3 06/24/25 12:29 Respiratory Assessment Respiratory Assessment - assembly line driver: Respiratory Tract Infection Hx - assembly line driver Hx Respiratory Tract Infection No 06/21/25 15:25 STOP Sleep Apnea STOP Sleep Apnea - assembly line driver: STOP Sleep Apnea - assembly line driver Hx Hypertension No 06/21/25 15:25 Hx Sleep Apnea No 06/21/25 15:25 CPAP No 03/11/25 13:22 BIPAP No 03/11/25 13:22 Do you snore loudly (louder No 06/21/25 15:25 than talking or can be heard Do you often feel tired/ No 06/21/25 15:25 fatigued/ sleepy during daytime? Has anyone observed you stop No 06/21/25 15:25 breathing during sleep? STOP Results Negative 06/21/25 15:25 QUESTION #5 FULL TEXT : Do you snore loudly (louder than talking or can be heard through closed doors)? Tobacco Use History Tobacco Use History - assembly line driver: Tobacco Use History - assembly line driver Tobacco Use Smoking Status Never smoker 06/21/25 15:25 Hx Tobacco Use No 06/21/25 15:25 Years Smoking Packs Smoked per Day Smoking Cessation Date was within the last 15 years Hx Smoking Cessation Date Hx Smoking Cessation Counseling Hematologic Medial History Hematologic Hx - assembly line driver: Hematologic Medical Hx - cap cutter Hx of Blood Transfusion No 06/21/25 15:25 Hx of Transfusion in last 3 No 06/21/25 15:25 Months Date of Last Transfusion (if within last 3 months) Ever experience any problems No 06/21/25 15:25 with transfusion(s)? Specify any problems Hx of Preganancy in last 3 N/A 06/21/25 15:25 Months Nurse Filling Out Transfusion JAY 06/21/25 15:25 & Questions: Date: 06/21/25 06/21/25 15:25 Time: 15:42 06/21/25 15:25 Patient unable to answer at this time (ie. confused, unrespo /Reproduction History /Reproductive History - assembly line driver: /Reproductive Hx- assembly line driver Hx Now Gestational Age (in weeks): EDC: Hx Hx Para Hx Section SAB No 06/21/25 15:25 Does the father of the baby or his family experience fever w Father of the baby Malignant Hypertension history comment Active Medications Active Medications: Current Medications Generic Name Dose Route Start Last Admin Trade Name Johanq PRN Reason Stop Dose Admin Lactated Ringer's 1,000 mls @ 15 mls/hr 06/24/25 12:15 06/24/25 12:37 IV 15 mls/hr .Q48H STACY Administration PFSH Medical History Wears glasses Open wound On home oxygen therapy History of edema Chest pain Nonunion of fracture of clavicle Preop exam for internal medicine Hematoma of leg Vaginal atrophy Malignant neoplasm of breast (female) Right clavicle fracture Leg edema Open wound of right lower extremity Contusion of right foot Kyphoscoliosis deformity of spine Bee sting Lumbar contusion Contusion of thoracic wall Pain of left lower extremity Contact with and (suspected) exposure to other viral communicable diseases Contusion of left wrist Left elbow contusion Contusion of left shoulder Scalp contusion Injury of left elbow Injury of left shoulder Presence of stent in coronary artery (~1989) Atherosclerotic heart disease of [place] coronary artery without angina pectoris Essential hypertension Influenza A Health care maintenance Falls frequently Cancer Depression Dementia Walker as ambulation aid Arthritis Bladder disease Low iron DVT (deep venous thrombosis) High cholesterol Restless legs Back pain TIA (transient ischemic attack) Seizures Difficulty swallowing Gastric reflux Non-smoker Asthma Shortness of breath on exertion Hx of echocardiogram History of stress test Hypertension Cardiology follow-up encounter History of heart attack Hypertension aquired autoimmune encephalopathy h/o back surgery Heart disease Dementia Partial complex seizures Home Medications Medication Instructions Recorded Last Taken Type L.acidophil-L.casei-B.bifid-B.longum-FOS 1 cap PO DAILY Supplement 09/02/21 02/05/25 History 2 billion cell-50 mg capsule (Probiotic Blend) aspirin 81 mg tablet,delayed 81 mg PO DAILY 01/10/22 06/21/25 History release (Adult Aspirin Regimen) d-mannose 500 mg capsule 500 mg PO DAILY 06/07/22 02/05/25 History famotidine 10 mg tablet 10 mg PO BID 06/07/22 06/24/25 History multivitamin 1 tab PO DAILY 06/07/22 02/05/25 History mirabegron 50 mg tablet,extended 50 mg PO QHS Check with primary 01/29/23 02/05/25 History release 24 hr (Myrbetriq) doctor syringes BD ECLIPSE 04/11/23 Unknown History latanoprost 0.005 % eye drops 1 drp ophthalmic (eye) DAILY 08/13/23 02/05/25 History (Xalatan) nitroglycerin 0.4 mg sublingual 0.4 mg sublingual Q5-15M PRN chest 11/12/23 Unknown Rx tablet pain #25 tabs BD Sry/needle eclips See Rx Instructions IM .COMPLEX 02/23/24 Unknown Rx #12 ea azelastine 137 mcg (0.1 %) nasal 2 spray intranasal BID 03/16/24 Unknown History spray cetirizine 10 mg capsule (Zyrtec) 10 mg PO DAILY PRN allergy symptoms 03/16/24 Unknown History PEP device #1 ea 04/06/24 Unknown Rx brimonidine 0.2 % eye drops 1 drp ophthalmic (eye) QHS 10/14/24 02/05/25 History olopatadine 0.6 % nasal spray 2 spray intranasal DAILY 10/14/24 Unknown History pantoprazole 40 mg tablet,delayed 40 mg PO DAILY 10/14/24 06/24/25 History release potassium chloride 20 mEq 20 meq PO DAILY 10/14/24 02/05/25 History tablet,extended release(part/cryst) (Klor-Con M) denosumab 60 mg/mL subcutaneous 60 mg subcut [id number] #1 mL 01/24/25 Unknown Rx syringe (Prolia) gabapentin 100 mg capsule 300 mg PO Q12H restless leg(s) 02/03/25 06/24/25 History dorzolamide 22.3 mg-timolol 6.8 1 drp ophthalmic (eye) BID 02/22/25 Unknown History mg/mL eye drops sennosides 8.6 mg-docusate sodium 1 tab-cap PO PRN 02/22/25 Unknown History 50 mg tablet (Senna Plus) albuterol sulfate 2.5 mg/3 mL 2.5 mg (3 mL) inhalation Q6H PRN 03/10/25 Unknown Rx (0.083 %) solution for nebulization Sob &/Or Wheezing #180 mL ergocalciferol (vitamin D2) 1,250 1,250 mcg PO Q7D #12 caps 04/13/25 Unknown Rx mcg (50,000 unit) capsule (Vitamin D2) lacosamide 100 mg tablet (Vimpat) 100 mg PO BID 20 days #40 tabs 06/13/25 Unknown Rx levothyroxine 50 mcg tablet 50 mcg PO DAILY Thyroid #90 tabs 06/13/25 06/24/25 Rx cephalexin 250 mg capsule 250 mg PO Q8H #20 caps 06/20/25 Unknown Rx tramadol 50 mg tablet 25 mg PO BID pain 06/20/25 Unknown History furosemide 20 mg tablet 20 mg PO DAILY edema 06/21/25 Unknown History tramadol 50 mg tablet 50 mg PO Q6H PRN pain 06/21/25 Unknown History apixaban 5 mg tablet (Eliquis) 5 mg PO BID #180 tabs 06/23/25 06/21/25 Rx atorvastatin 40 mg tablet See Rx Instructions .Route 06/23/25 Unknown Rx .COMPLEX #90 tabs donepezil 10 mg tablet 10 mg PO DAILY #90 tabs 06/23/25 06/24/25 Rx memantine 10 mg tablet 10 mg PO BID Alzheimer's #180 tabs 06/23/25 Unknown Rx pramipexole 0.5 mg tablet 0.5 mg PO BID #180 tabs 06/23/25 Unknown Rx vortioxetine 20 mg tablet 20 mg PO DAILY DEPRESSION #90 tabs 06/23/25 Unknown Rx (Trintellix) Allergy/AdvReac Type Severity Reaction Status Date / Time oxycodone Allergy Severe confusion Verified 06/24/25 12:26 doxycycline Allergy Mild Vomiting Verified 06/24/25 12:26 hydromorphone (From Dilaudid) Allergy Mild confusion Verified 06/24/25 12:26 lamotrigine (From Lamictal) Allergy Lip Verified 06/24/25 12:26 Swelling moxifloxacin HCl (From Allergy Other Verified 06/24/25 12:26 Avelox) propoxyphene napsylate (From Allergy Other Verified 06/24/25 12:26 Darvocet-N) zolpidem (From Ambien) Allergy unknown Verified 06/24/25 12:26 hydrocodone AdvReac Severe Confusion Verified 06/24/25 12:26 zolpidem tartrate (From AdvReac Other Verified 06/24/25 12:26 Ambien) Family History Mother CVA (cerebral vascular accident) Arthritis Father Myocardial infarction, Onset Age: 40 Alcoholism Hypertension Sister Anemia Grandmother Bowel disease Osteoporosis Ovarian cancer Other Heart disease Surgical History Hx of heart artery stent H/O: hysterectomy History of repair of hiatal hernia History of cholecystectomy History of hernia surgery Presence of coronary angioplasty implant and graft (~1989) History of hammer toe correction History of lumbar laminectomy History of carpal tunnel release History of tonsillectomy and adenoidectomy History of lumpectomy of left breast History of cardiac catheterization History of esophagogastroduodenoscopy (EGD) Hx of colonoscopy Hx of ventral hernia repair Hx of cataract extraction History of laryngoscopy History of appendectomy H/O kyphoplasty Social History household members: spouse housing: house Smoking Status: Never smoker alcohol intake: current alcohol intake frequency: a few times a week Alcohol type: wine substance use type: does not use caffeine: Yes Type: coffee Number of servings: 1 what type of physical activity do you participate in: other details: PT 3x weekly frequency: 3-4 times per week do you feel safe at home: Yes Review of Systems (Anesthesia) ROS Narrative System reviewed and no additional complaints, except as documented. Physical Exam Resp clear to auscultation bilaterally
--- NOTE | 2025-06-24 13:18 | PCM.HP.STD ---
HPI - General HPI Narrative SHELDON ALAN, is a 84 F who presents for right distal clavicle excision. Due to skin breakdown. No spreading redness. Saw wound care center. Off blood thinners. Plan for tramadol after, confusion with other narcotics. OK for surgery. Right shoulder marked. Sling after. RAB, post op instructions and narcotic counselling. OK to proceed. MR#: [id number] Acct: [id number] Name: SHELDON ALAN VENECIA Rep #: [id number] : 1940 Provider: Dr. Damien Burleson MD Age/Sex: 84/F Location: [facility] [place] Status: Signed Intake Vital Signs 06/13/2514:15 06/20/2513:07 Height 4 ft 7 in 4 ft 7 in Weight: 104 lb 104 lb BMI 24.1 24.1 BP 125/68 H Blood Pressure Location Lt brachial Position Sitting Respiration 16 Pulse 64 Pulse Source Monitor Temp 98.6 F Temp Source Temporal Pulse Oximetry (%) 90 Oxygen Delivery Method room air Intake Visit Reasons: RIGHT CLAVICLE Chief Complaint: Right clavical wound Accompanied by: Self Is patient in pain?: Yes Pain scale (1-10): 8 Allergies acetaminophen (From Percocet) Allergy (Severe, Verified 06/20/25 13:15) confusion oxycodone Allergy (Severe, Verified 06/20/25 13:15) confusion doxycycline Allergy (Mild, Verified 06/20/25 13:11) Vomiting hydromorphone (From Dilaudid) Allergy (Mild, Verified 06/20/25 13:15) confusion lamotrigine (From Lamictal) Allergy (Verified 06/20/25 13:11) Lip Swelling moxifloxacin HCl (From Avelox) Allergy (Verified 06/20/25 13:11) Other propoxyphene napsylate (From Darvocet-N) Allergy (Verified 06/20/25 13:11) Other zolpidem (From Ambien) Allergy (Verified 06/20/25 13:11) unknown hydrocodone Adverse Reaction (Severe, Verified 06/20/25 13:11) Confusion zolpidem tartrate (From Ambien) Adverse Reaction (Verified 06/20/25 13:11) Other Medications Medication Instructions Recorded Confirmed Type L.acidophil-L.casei-B.bifid-B.longum-FOS 1 cap PO DAILY Supplement 09/02/21 06/20/25 History 2 billion cell-50 mg capsule (Probiotic Blend) aspirin 81 mg tablet,delayed 81 mg PO DAILY 01/10/22 06/20/25 History release (Adult Aspirin Regimen) d-mannose 500 mg capsule 500 mg PO DAILY 06/07/22 06/20/25 History famotidine 10 mg tablet 10 mg PO BID 06/07/22 06/20/25 History multivitamin 1 tab PO DAILY 06/07/22 06/20/25 History mirabegron 50 mg tablet,extended 50 mg PO QHS Check with primary 01/29/23 06/20/25 History release 24 hr (Myrbetriq) doctor syringes BD ECLIPSE 04/11/23 06/20/25 History latanoprost 0.005 % eye drops 1 drp ophthalmic (eye) DAILY 08/13/23 06/20/25 History (Xalatan) nitroglycerin 0.4 mg sublingual 0.4 mg sublingual Q5-15M PRN chest 11/12/23 06/20/25 Rx tablet pain #25 tabs BD Sry/needle eclips See Rx Instructions IM .COMPLEX 02/23/24 06/20/25 Rx #12 ea azelastine 137 mcg (0.1 %) nasal 2 spray intranasal BID 03/16/24 06/20/25 History spray cetirizine 10 mg capsule (Zyrtec) 10 mg PO DAILY PRN allergy symptoms 03/16/24 06/20/25 History fluticasone propionate 50 1 spray intranasal DAILY 03/16/24 06/20/25 History mcg/actuation nasal spray,suspension (Allergy Relief (fluticasone)) PEP device #1 ea 04/06/24 06/20/25 Rx apixaban 5 mg tablet (Eliquis) 5 mg PO BID #180 tabs 06/08/24 06/20/25 Rx atorvastatin 40 mg tablet See Rx Instructions .Route 06/08/24 06/20/25 Rx .COMPLEX #90 tabs memantine 10 mg tablet 10 mg PO BID Alzheimer's #180 tabs 06/08/24 06/20/25 Rx pramipexole 0.5 mg tablet 0.5 mg PO BID #180 tabs 06/08/24 06/20/25 Rx vortioxetine 20 mg tablet 20 mg PO DAILY DEPRESSION #90 tabs 06/08/24 06/20/25 Rx (Trintellix) brimonidine 0.2 % eye drops 1 drp ophthalmic (eye) QHS 10/14/24 06/20/25 History olopatadine 0.6 % nasal spray 2 spray intranasal DAILY 10/14/24 06/20/25 History pantoprazole 40 mg tablet,delayed 40 mg PO DAILY 10/14/24 06/20/25 History release potassium chloride 20 mEq 20 meq PO DAILY 10/14/24 06/20/25 History tablet,extended release(part/cryst) (Klor-Con M) denosumab 60 mg/mL subcutaneous 60 mg subcut [id number] #1 mL 01/24/25 06/20/25 Rx syringe (Prolia) gabapentin 100 mg capsule 300 mg PO QHS restless leg(s) 02/03/25 06/20/25 History donepezil 10 mg tablet 10 mg PO DAILY 02/06/25 06/20/25 History acetaminophen 500 mg capsule 500 mg PO Q6H PRN pain 02/22/25 06/20/25 History dorzolamide 22.3 mg-timolol 6.8 1 drp ophthalmic (eye) BID 02/22/25 06/20/25 History mg/mL eye drops ondansetron 4 mg disintegrating 4 mg PO Q4H PRN 02/22/25 06/20/25 History tablet sennosides 8.6 mg-docusate sodium 1 tab-cap PO QHS 02/22/25 06/20/25 History 50 mg tablet (Senna Plus) albuterol sulfate 2.5 mg/3 mL 2.5 mg (3 mL) inhalation Q6H PRN 03/10/25 06/20/25 Rx (0.083 %) solution for nebulization Sob &/Or Wheezing #180 mL ergocalciferol (vitamin D2) 1,250 1,250 mcg PO Q7D #12 caps 04/13/25 06/20/25 Rx mcg (50,000 unit) capsule (Vitamin D2) furosemide 20 mg tablet 20 mg PO DAILY PRN edema #30 tabs 06/13/25 06/20/25 Rx lacosamide 100 mg tablet (Vimpat) 100 mg PO BID 20 days #40 tabs 06/13/25 06/20/25 Rx levothyroxine 50 mcg tablet 50 mcg PO DAILY Thyroid #90 tabs 06/13/25 06/20/25 Rx cephalexin 250 mg capsule 250 mg PO Q8H #20 caps 06/20/25 06/20/25 Rx tramadol 50 mg tablet 25 mg PO Q6H PRN pain 06/20/25 06/20/25 History Have you fallen in the past year?: Yes PFSH Medical History Nonunion of fracture of clavicle Preop exam for internal medicine Hematoma of leg Vaginal atrophy Malignant neoplasm of breast (female) Right clavicle fracture Leg edema Open wound of right lower extremity Contusion of right foot Kyphoscoliosis deformity of spine Bee sting Lumbar contusion Contusion of thoracic wall Pain of left lower extremity Contact with and (suspected) exposure to other viral communicable diseases Contusion of left wrist Left elbow contusion Contusion of left shoulder Scalp contusion Injury of left elbow Injury of left shoulder Presence of stent in coronary artery (~1989) Atherosclerotic heart disease of [place] coronary artery without angina pectoris Essential hypertension Influenza A Health care maintenance Falls frequently Cancer Depression Dementia Walker as ambulation aid Arthritis Bladder disease Low iron DVT (deep venous thrombosis) High cholesterol Restless legs Back pain TIA (transient ischemic attack) Seizures Difficulty swallowing Gastric reflux Non-smoker Asthma Shortness of breath on exertion Hx of echocardiogram History of stress test Hypertension Cardiology follow-up encounter History of heart attack Hypertension aquired autoimmune encephalopathy h/o back surgery Heart disease Dementia Partial complex seizures Surgical History H/O: hysterectomy History of repair of hiatal hernia History of cholecystectomy History of hernia surgery Presence of coronary angioplasty implant and graft (~1989) History of hammer toe correction History of lumbar laminectomy History of carpal tunnel release History of tonsillectomy and adenoidectomy History of lumpectomy of left breast History of cardiac catheterization History of esophagogastroduodenoscopy (EGD) Hx of colonoscopy Hx of ventral hernia repair Hx of cataract extraction History of laryngoscopy History of appendectomy H/O kyphoplasty Family History Mother CVA (cerebral vascular accident) Arthritis Father Myocardial infarction, Onset Age: 40 Alcoholism Hypertension Sister Anemia Grandmother Bowel disease Osteoporosis Ovarian cancer Other Heart disease Social History household members: spouse housing: house Smoking Status: Never smoker alcohol intake: current alcohol intake frequency: a few times a week Alcohol type: wine substance use type: does not use caffeine: Yes Type: coffee Number of servings: 1 what type of physical activity do you participate in: other details: PT 3x weekly frequency: 3-4 times per week do you feel safe at home: Yes HPI RIGHT CLAVICLE Details: This documentation accurately reflects the service provided and the decisions made by me, Dr. Damien Burleson MD 06/20/25 1001. Part of today’s visit was documented by [ ], acting as scribe. SHELDON ALAN is a 84 year old F here today for FU R distal clavicle fracture. Plan for excision this Friday, but became open now. NO trauma, happened spontaneously. Has been having some very mild drainage to white no foul smell no fevers or chills mild redness. Plan for surgery for distal clavicle excision to take the pressure off the skin to try to prevent this problem. Already patient of the wound care center would like to be seen by them within the next day or 2. 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 There could be concern for infection here patient has been placed on oral antibiotics already by her family doctor's office recommend to continue those until surgery. Red flag symptoms discussed, let me know marcella if further redness drainage progression or other concerns. No exposed bone. Erica aware to make a stat referral to the wound care center the patient is already established there and gave new dry dressings for the upper extremity recommend keeping clean and dry and padded for now. Still plan for surgery on Friday for distal clavicle excision and debridement of a possible infection and granulation tissue there with primary closure. The wound care center will also help to manage until we get to surgery and for postop care. Finally still recommend to hold the blood thinners 2 days before surgery and the patient was asking for a block that will be discussed with anesthesia on the day of surgery. She understands no further questions or concerns. (2) Nonunion of fracture of clavicle: Status: Acute Clinical Quality Measures Falls Risk Screening/Assistive Devices Have you fallen in the past year?: Yes Ortho Exam General General: Yes no acute distress Neurologic: Yes alert and Yes oriented x3 Psychologic: Yes reasonable and appropriate Right Shoulder Skin/Wound: Yes CDI, No ecchymosis, No erythema and Yes swelling SHOULDER: shoulder pain at the tip of the distal clavicle. the skin broke down no exposed bone there but there is a small 5 mm area of what appears to be either pus or early granulation tissue very mild surrounding redness no foul smell no streaking redness neurovascularly intact to the upper extremity [facility] Medical History Wears glasses Open wound On home oxygen therapy History of edema Chest pain Nonunion of fracture of clavicle Preop exam for internal medicine Hematoma of leg Vaginal atrophy Malignant neoplasm of breast (female) Right clavicle fracture Leg edema Open wound of right lower extremity Contusion of right foot Kyphoscoliosis deformity of spine Bee sting Lumbar contusion Contusion of thoracic wall Pain of left lower extremity Contact with and (suspected) exposure to other viral communicable diseases Contusion of left wrist Left elbow contusion Contusion of left shoulder Scalp contusion Injury of left elbow Injury of left shoulder Presence of stent in coronary artery (~1989) Atherosclerotic heart disease of [place] coronary artery without angina pectoris Essential hypertension Influenza A Health care maintenance Falls frequently Cancer Depression Dementia Walker as ambulation aid Arthritis Bladder disease Low iron DVT (deep venous thrombosis) High cholesterol Restless legs Back pain TIA (transient ischemic attack) Seizures Difficulty swallowing Gastric reflux Non-smoker Asthma Shortness of breath on exertion Hx of echocardiogram History of stress test Hypertension Cardiology follow-up encounter History of heart attack Hypertension aquired autoimmune encephalopathy h/o back surgery Heart disease Dementia Partial complex seizures Home Medications Medication Instructions Recorded Last Taken Type L.acidophil-L.casei-B.bifid-B.longum-FOS 1 cap PO DAILY Supplement 09/02/21 02/05/25 History 2 billion cell-50 mg capsule (Probiotic Blend) aspirin 81 mg tablet,delayed 81 mg PO DAILY 01/10/22 06/21/25 History release (Adult Aspirin Regimen) d-mannose 500 mg capsule 500 mg PO DAILY 06/07/22 02/05/25 History famotidine 10 mg tablet 10 mg PO BID 06/07/22 06/24/25 History multivitamin 1 tab PO DAILY 06/07/22 02/05/25 History mirabegron 50 mg tablet,extended 50 mg PO QHS Check with primary 01/29/23 02/05/25 History release 24 hr (Myrbetriq) doctor syringes BD ECLIPSE 04/11/23 Unknown History latanoprost 0.005 % eye drops 1 drp ophthalmic (eye) DAILY 08/13/23 02/05/25 History (Xalatan) nitroglycerin 0.4 mg sublingual 0.4 mg sublingual Q5-15M PRN chest 11/12/23 Unknown Rx tablet pain #25 tabs BD Sry/needle eclips See Rx Instructions IM .COMPLEX 02/23/24 Unknown Rx #12 ea azelastine 137 mcg (0.1 %) nasal 2 spray intranasal BID 03/16/24 Unknown History spray cetirizine 10 mg capsule (Zyrtec) 10 mg PO DAILY PRN allergy symptoms 03/16/24 Unknown History PEP device #1 ea 04/06/24 Unknown Rx brimonidine 0.2 % eye drops 1 drp ophthalmic (eye) QHS 10/14/24 02/05/25 History olopatadine 0.6 % nasal spray 2 spray intranasal DAILY 10/14/24 Unknown History pantoprazole 40 mg tablet,delayed 40 mg PO DAILY 10/14/24 06/24/25 History release potassium chloride 20 mEq 20 meq PO DAILY 10/14/24 02/05/25 History tablet,extended release(part/cryst) (Klor-Con M) denosumab 60 mg/mL subcutaneous 60 mg subcut [id number] #1 mL 01/24/25 Unknown Rx syringe (Prolia) gabapentin 100 mg capsule 300 mg PO Q12H restless leg(s) 02/03/25 06/24/25 History dorzolamide 22.3 mg-timolol 6.8 1 drp ophthalmic (eye) BID 02/22/25 Unknown History mg/mL eye drops sennosides 8.6 mg-docusate sodium 1 tab-cap PO PRN 02/22/25 Unknown History 50 mg tablet (Senna Plus) albuterol sulfate 2.5 mg/3 mL 2.5 mg (3 mL) inhalation Q6H PRN 03/10/25 Unknown Rx (0.083 %) solution for nebulization Sob &/Or Wheezing #180 mL ergocalciferol (vitamin D2) 1,250 1,250 mcg PO Q7D #12 caps 04/13/25 Unknown Rx mcg (50,000 unit) capsule (Vitamin D2) lacosamide 100 mg tablet (Vimpat) 100 mg PO BID 20 days #40 tabs 06/13/25 Unknown Rx levothyroxine 50 mcg tablet 50 mcg PO DAILY Thyroid #90 tabs 06/13/25 06/24/25 Rx cephalexin 250 mg capsule 250 mg PO Q8H #20 caps 06/20/25 Unknown Rx tramadol 50 mg tablet 25 mg PO BID pain 06/20/25 Unknown History furosemide 20 mg tablet 20 mg PO DAILY edema 06/21/25 Unknown History tramadol 50 mg tablet 50 mg PO Q6H PRN pain 06/21/25 Unknown History apixaban 5 mg tablet (Eliquis) 5 mg PO BID #180 tabs 06/23/25 06/21/25 Rx atorvastatin 40 mg tablet See Rx Instructions .Route 06/23/25 Unknown Rx .COMPLEX #90 tabs donepezil 10 mg tablet 10 mg PO DAILY #90 tabs 06/23/25 06/24/25 Rx memantine 10 mg tablet 10 mg PO BID Alzheimer's #180 tabs 06/23/25 Unknown Rx pramipexole 0.5 mg tablet 0.5 mg PO BID #180 tabs 06/23/25 Unknown Rx vortioxetine 20 mg tablet 20 mg PO DAILY DEPRESSION #90 tabs 06/23/25 Unknown Rx (Trintellix) Allergy/AdvReac Type Severity Reaction Status Date / Time acetaminophen (From Percocet) Allergy Severe confusion Verified 06/24/25 12:26 oxycodone Allergy Severe confusion Verified 06/24/25 12:26 doxycycline Allergy Mild Vomiting Verified 06/24/25 12:26 hydromorphone (From Dilaudid) Allergy Mild confusion Verified 06/24/25 12:26 lamotrigine (From Lamictal) Allergy Lip Verified 06/24/25 12:26 Swelling moxifloxacin HCl (From Allergy Other Verified 06/24/25 12:26 Avelox) propoxyphene napsylate (From Allergy Other Verified 06/24/25 12:26 Darvocet-N) zolpidem (From Ambien) Allergy unknown Verified 06/24/25 12:26 hydrocodone AdvReac Severe Confusion Verified 06/24/25 12:26 zolpidem tartrate (From AdvReac Other Verified 06/24/25 12:26 Ambien) Family History Mother CVA (cerebral vascular accident) Arthritis Father Myocardial infarction, Onset Age: 40 Alcoholism Hypertension Sister Anemia Grandmother Bowel disease Osteoporosis Ovarian cancer Other Heart disease Surgical History Hx of heart artery stent H/O: hysterectomy History of repair of hiatal hernia History of cholecystectomy History of hernia surgery Presence of coronary angioplasty implant and graft (~1989) History of hammer toe correction History of lumbar laminectomy History of carpal tunnel release History of tonsillectomy and adenoidectomy History of lumpectomy of left breast History of cardiac catheterization History of esophagogastroduodenoscopy (EGD) Hx of colonoscopy Hx of ventral hernia repair Hx of cataract extraction History of laryngoscopy History of appendectomy H/O kyphoplasty Social History household members: spouse housing: house Smoking Status: Never smoker alcohol intake: current alcohol intake frequency: a few times a week Alcohol type: wine substance use type: does not use caffeine: Yes Type: coffee Number of servings: 1 what type of physical activity do you participate in: other details: PT 3x weekly frequency: 3-4 times per week do you feel safe at home: Yes Vital Signs Vital Signs Vital Signs: 06/24/25 12:29 06/24/25 12:29 06/24/25 13:18 Temperature 97.0 F L 97.0 F L Temperature Source Temporal Pulse Rate 65 65 Respiratory Rate 18 18 Respiratory Pattern Normal Blood Pressure 162/92 H 162/92 H Blood Pressure Mean 115 Blood Pressure Source Monitor Blood Pressure Position Sitting Blood Pressure Location Right Arm Pulse Ox 95 95 Oxygen Delivery Method Room Air Weight Weight: 108 lb 14.534 oz Body Mass Index (BMI) 25.3 Results Lab / Micro Data 06/22/25 13:41 06/22/25 13:41
[2025-06-24] MEDS: Lactated Ringers 500 ML IV (13:55)
[2025-06-24] MEDS: Cefazolin 1 GM/5 ML Vial 2 GM IV (13:55)
[2025-06-24] MEDS: Lidocaine 1% (5 ml sdv) 5 ML Vial 4 ML IV (14:03)
--- NOTE | 2025-06-24 14:15 | RAD_ITS ---
PROCEDURE: Intraoperative fluoroscopy. 06/24/2025 REASON FOR EXAM: RIGHT DISTAL CLAVICLE EXCISION TECHNIQUE: Procedure Code: RADCL Modality: DX Procedure: CLAVICLE. Intraoperative fluoroscopic services provided for resection of the distal clavicle. 2.1 seconds of fluoroscopy. 0.14 mGy. COMPARISON: Prior study dated February 22, 2025. FINDINGS: Intraoperative fluoroscopic services provided for resection of the distal portion of the right clavicle. RAD/Clavicle IMPRESSION: Intraoperative fluoroscopic services provided for resection of the distal porti on of the right clavicle. Reading Location: [id number]
--- NOTE | 2025-06-24 14:49 | OP.PCM_ITS ---
Operative Report (Standard) Operative Information Date of Procedure: 06/24/25 RN Documented Start/Stop Times: Operation Date: 06/24/25 13:30 Case Time Into Pre-Op 06/24/25 12:11 Anesthesia Start 06/24/25 13:56 Into Room 06/24/25 13:56 Procedure Start 06/24/25 14:18 Procedure End 06/24/25 14:47
--- NOTE | 2025-06-24 14:49 | PCM.OPRPT ---
Problems Associated Problem List Diagnoses (1) Right clavicle fracture: Procedures Musculoskeletal 20xxx-29xxx: Other Procedure See Report Operative Report (Standard) Operative Information Date of Procedure: 06/24/25 Pre-Operative Diagnosis: Nonunion and skin breakdown following right distal clavicle fracture Post-Operative Diagnosis: Same Surgery/Procedure Performed: Right distal clavicle excision debridement and skin closure teleservices representative: Yes [employer] Hardware Outfitter: Nika Tasks completed by clinical education assistant: Retracting Type of Anesthesia: Block,Regional and General RN Documented Start/Stop Times: Operation Date: 06/24/25 13:30 Case Time Into Pre-Op 06/24/25 12:11 Anesthesia Start 06/24/25 13:56 Into Room 06/24/25 13:56 Procedure Start 06/24/25 14:18 Procedure End 06/24/25 14:47 Out of Room 06/24/25 14:51 Procedure Start Time: 14:18 Procedure Stop Time: 14:47 Select all DRAINS/GRAFTS/IMPLANTS that apply: None Estimated Blood Loss: 10 Specimen collected: No Description of surgery: Patient brought to the operating room theater. Placed supine on the table. General anesthesia induced. 2 g IV Ancef administered prior to the start of the procedure. Right shoulder and distal clavicle area prepped and draped in the usual sterile fashion with chlorhexidine-based prep solution allowing over 3 minutes drying time prior to draping. SCDs on legs. All bony prominences padded. Preoperative timeout performed to confirm the site patient and the surgery. I began by making a horizontal incision at the area of the skin breakdown more anteriorly over the clavicle at the distal end over the prominent aspect, avoiding a superior incision to take pressure off the healing area. Carried the dissection down through skin and subcutaneous tissue achieved meticulous hemostasis. This was about an inch long. Achieved dissection down onto the distal clavicle at the prominent area. Achieved dissection around the distal end of the clavicle around the beveled part that was quite sharp at the end. I used a saw to remove 1.5 cm at the distal clavicle. I achieved meticulous hemostasis. I beveled the superior aspect so that is more rounded and off the soft tissue. I checked to see if this was appropriately offloading the soft tissues there was no tension and no pressure on the soft tissues and no sharp edges. Intraoperative fluoroscopy taken to confirm appropriate resection. There is no evidence of increased instability of the distal clavicle area after the bony excision. Meticulous hemostasis achieved wound thoroughly irrigated. Fascial layer closed with #1 Vicryl suture followed by subcutaneous tissue with 2-0 Vicryl suture and skin with 3-0 Monocryl. Skin cleaned with wet dry dressing followed application of Steri-Strips and silver Mepilex dressing with a sling for the upper extremity. Patient woken up from the general anesthetic transferred off the operating table taken to postanesthetic care unit in stable condition. All sponge needle instrument counts were correct no complications plan for the patient sling for 2 weeks follow-up in the office within 2 weeks discharge home according to day surgery criteria. No heavy or repetitive lifting with the upper extremity. cpt [id number] Surgical Findings: as above Complications Complications: No Admit VTE Documentation VTE Present on Admission: No VTE Mechan Device Prophylaxis: SCD's VTE Pharm Prophylaxis ordered?: No Reason prophylaxis not ordered: Treatment Not Indicated
--- NOTE | 2025-06-24 14:51 | DCINST_ITS ---
Discharge Instructions Diet Discharge Diet: No restrictions Activity Ice area for (Minutes): 10 Weight Bearing Status: Partial weight bearing Lifting Restrictions: no repetitive or heavy lifting over 2 pounds right arm Additional Activity Instructions:: wear sling 2 weeks, ok to take breaks Dressing / Incision Call your doctor if your incision/area has: Continuous Slow Oozing, Sudden Increased Bleeding, Increased Pain/ Swelling, Increased Redness, Foul Smelling Discharge and Swelling at the incision site Call your doctor if you observe: Fever of 101 or Higher, Coldness, Increased Pain and Numbness or Tingling Change Dressing in: leave in place till F/U Cleanse incision/area with: Do not get Incision Wet Follow Up Care Please Follow Up With: Damien Burleson MD When: within 2 weeks Test Results: Test results from this visit will be discussed in further detail at your follow- up appointment, if applicable. Discharge Plan Admission Attending Provider: Damien Burleson Primary Care Provider: Yokasta Perry Instructions Print Language: Liberian Discharge Orders/Prescriptions Prescriptions: New tramadol 25 mg tablet 25 mg PO Q6H MDD 4 PRN (Reason: pain) 3 Days Qty: 10 0RF No Action Myrbetriq 50 mg tablet extended release 24 hr 50 mg PO QHS aspirin [Adult Aspirin Regimen] 81 mg tablet,delayed release (DR/EC) 81 mg PO DAILY multivitamin Tablet 1 tab PO DAILY famotidine 10 mg tablet 10 mg PO BID d-mannose 500 mg capsule 500 mg PO DAILY latanoprost [Xalatan] 0.005 % drops 1 drp ophthalmic (eye) DAILY nitroglycerin 0.4 mg tablet, sublingual 0.4 mg sublingual Q5-15M PRN (Reason: chest pain) Qty: 25 3RF Rx Instructions: do not exceed 3 doses per episode azelastine 137 mcg (0.1 %) spray,non-aerosol 2 spray intranasal BID Patient Comments: [NO ORIGINAL SIG] Zyrtec 10 mg capsule 10 mg PO DAILY PRN (Reason: allergy symptoms) pantoprazole 40 mg tablet,delayed release (DR/EC) 40 mg PO DAILY potassium chloride [Klor-Con M20] 20 mEq tablet,ER particles/crystals 20 meq PO DAILY brimonidine 0.2 % drops 1 drp ophthalmic (eye) QHS olopatadine 0.6 % spray,non-aerosol 2 spray intranasal DAILY Patient Comments: [NO ORIGINAL SIG] sennosides-docusate sodium [Senna Plus] 8.6-50 mg tablet 1 tab-cap PO PRN dorzolamide-timolol 22.3-6.8 mg/mL drops 1 drp ophthalmic (eye) BID tramadol 50 mg tablet 25 mg PO BID Probiotic Blend 2 billion cell-50 mg Capsule 1 cap PO DAILY furosemide 20 mg tablet 20 mg PO DAILY tramadol 50 mg tablet 50 mg PO Q6H PRN (Reason: pain) gabapentin 100 mg capsule 300 mg PO Q12H (DME) syringes BD ECLIPSE See Rx Instructions .Route .MEDSUPPLY Rx Instructions: Bd SYR/leticia Eclipse 3ml #[id number] BD Sry/needle eclips See Rx Instructions IM .COMPLEX Qty: 12 0RF Rx Instructions: intramuscularly; 3ml #[id number] uses 1 a month (DME) PEP device See Rx Instructions .ROUTE .MEDSUPPLY Qty: 1 0RF Rx Instructions: with training Prolia 60 mg/mL syringe 60 mg subcut [id number] Qty: 1 5RF albuterol sulfate 2.5 mg /3 mL (0.083 %) solution for nebulization 2.5 mg inhalation Q6H PRN (Reason: Sob &/Or Wheezing) Qty: 180 6RF ergocalciferol (vitamin D2) [Vitamin D2] 1,250 mcg (50,000 unit) capsule 1,250 mcg PO Q7D Qty: 12 3RF lacosamide [Vimpat] 100 mg tablet 100 mg PO BID 20 Days Qty: 40 3RF levothyroxine 50 mcg tablet 50 mcg PO DAILY Qty: 90 3RF cephalexin 250 mg capsule 250 mg PO Q8H Qty: 20 0RF Eliquis 5 mg tablet 5 mg PO BID Qty: 180 3RF donepezil 10 mg tablet 10 mg PO DAILY Qty: 90 3RF memantine 10 mg tablet 10 mg PO BID Qty: 180 3RF pramipexole 0.5 mg tablet 0.5 mg PO BID Qty: 180 3RF Trintellix 20 mg tablet 20 mg PO DAILY Qty: 90 3RF atorvastatin 40 mg tablet See Rx Instructions .ROUTE .COMPLEX Qty: 90 3RF Dose Instruction: TAKE 1 TABLET DAILY Rx Instructions: TAKE 1 TABLET DAILY Referrals / Follow Up: Yokasta Perry MD [Primary Care Provider, Internal Medicine - [facility]] Damien Burleson MD [Med Staff - Active Staff, Orthopedics] Disposition Disposition (needs filled in before D/C Order can be placed): Home, Self Care
--- NOTE | 2025-06-24 15:03 | PCM.POST.ANE ---
Anesthesia: Postop Eval I Current Vital Signs Temperature: 98.4 F Pulse Rate: 71 Blood Pressure: 151/80 Respiratory Rate: 16 Pulse Ox: 94 Assessment Airway patent: Yes Spontaneous unlabored respirations: Yes nausea: No Vomiting: No Anesthesia Complication: No Fluid Hydration Crystalloid volume administer (ml): 500 Total IV fluid infused: 500 Progress Note Anesthesia document: Postop Eval 1 completed: Yes
--- NOTE | 2025-06-24 17:42 | SUR.PHASEII ---
pt instructed to wear oxygen 3lpm n/c tonight. pt verbalized understanding.
--- NOTE | 2025-06-25 12:14 | POSTOPAN2_ITS ---
Anesthesia Postop Eval I Sum Postop Eval Completion status Anesthesia document: Postop Eval 1 completed: Yes Anesthesia Postop Eval I Summary Anesthesia Postop Eval I Summary: Anesthesia Postop Eval I: Assessment Summary Airway patent Yes 06/24/25 15:03 FABRIC WORKER [email or web address] Spontaneous unlabored Yes 06/24/25 15:03 FABRIC WORKER [email or web address] respirations Mental status nausea No 06/24/25 15:03 FABRIC WORKER [email or web address] Vomiting No 06/24/25 15:03 FABRIC WORKER [email or web address] Anesthesia Postop Eval I: Fluid Summary Crystalloid volume administer 500 06/24/25 15:03 FABRIC WORKER [email or web address].TNES (ml) Colloids volume administered ( ml) Blood Product volume administered (ml) Total IV fluid infused 500 06/24/25 15:03 FABRIC WORKER [email or web address] Anesthesia Postop Eval I: Summary Notes Anesthesia Complication No 06/24/25 15:03 FABRIC WORKER [email or web address] Anesthesia Complication Comment: Post-operative progress note Anesthesia: Postop Eval II Evaluation Mental status: Awake and Calm Pain Level: 2 nausea: No Vomiting: No Complications Anesthesia Complication: No
--- NOTE | 2025-06-25 12:14 | PCM.POSTANE2 ---
Anesthesia Postop Eval I Sum Postop Eval Completion status Anesthesia document: Postop Eval 1 completed: Yes Anesthesia Postop Eval I Summary Anesthesia Postop Eval I Summary: Anesthesia Postop Eval I: Assessment Summary Airway patent Yes 06/24/25 15:03 PRECONSTRUCTION [email or web address] Spontaneous unlabored Yes 06/24/25 15:03 PRECONSTRUCTION MANAGER.TNES respirations Mental status nausea No 06/24/25 15:03 PRECONSTRUCTION MANAGER.[email or web address] Vomiting No 06/24/25 15:03 PRECONSTRUCTION [email or web address] Anesthesia Postop Eval I: Fluid Summary Crystalloid volume administer 500 06/24/25 15:03 PRECONSTRUCTION MANAGER.TNES (ml) Colloids volume administered ( ml) Blood Product volume administered (ml) Total IV fluid infused 500 06/24/25 15:03 PRECONSTRUCTION [email or web address] Anesthesia Postop Eval I: Summary Notes Anesthesia Complication No 06/24/25 15:03 PRECONSTRUCTION [email or web address] Anesthesia Complication Comment: Post-operative progress note Anesthesia: Postop Eval II Evaluation Mental status: Awake and Calm Pain Level: 2 nausea: No Vomiting: No Complications Anesthesia Complication: No
== END 2025-06-24 17:41 | disposition home or self-care (01) ==
LOC: SDC 12:04 → AC 12:05
PROVIDERS: Anesthesiology; PCP Internal Medicine; Referring Provider Orthopaedic Surgery Sports Medicine; Visit Provider Orthopaedic Surgery Sports Medicine
DX: L98.A11 Non-pressure chronic ulcer of right upper arm (principal); S42.031K Displaced fracture of lateral end of right clavicle, subsequent encounter for fracture with nonunion; I25.10 Atherosclerotic heart disease of native coronary artery without angina pectoris; I10 Essential (primary) hypertension; E78.00 Pure hypercholesterolemia, unspecified; K21.9 Gastro-esophageal reflux disease without esophagitis; Z79.82 Long term (current) use of aspirin; Z79.899 Other long term (current) drug therapy; Z86.718 Personal history of other venous thrombosis and embolism
CPT/HCPCS: 23120; 00450; 36415; 73000; 76000; 80048; 84443; 85025; 85610; 85730; J2405

== ENCOUNTER 2025-07-07 15:00 | Outpatient (RCR) | payer MEDICARE, OTHER, SELFPAY ==
[2025-06-23 15:10] VITALS: BP 166/81; PULSE 73; RESP 14; TEMP 36.4
--- NOTE | 2025-06-23 15:43 | PCM.WC.PN ---
History of Present Illness Date of Service: 06/23/25 Chief Complaint: L calf laceration History of Wound: Lauren Alcaraz is an 84 y/o female who presents today for evaluation and management of a LLE laceration. On 05/02 she had inadvertently injured her leg at home leading to a laceration; she presented initially to urgent care where the wound was cleansed and steri-strips applied but due to continued bleeding she presented to the [facility] ER on 05/03 where steri-strips were reapplied (laceration noted to be 3.5cm in length) and was recommended to hold her anticoagulation for a few days to reduce bleeding which she did. She was seen by her PCP Dr. Perry 05/11/25 and referred to wound care due to concern for high potential for delayed healing. She notes she has not had much oozing from this more recently; there are still steri-strips intact. She is chronically anticoagulated with Eliquis. She does not smoke. She is not diabetic. Subjective Subjective Lauren returns to the wound center today earlier than previously scheduled due to increased concern regarding the wound overlying her R displaced clavicle. She reports that earlier in the week she noticed some bloody drainage and drainage that looked more purulent coming from the wound which she hadn't had before. She saw her PCP Dr. Perry who initiated Keflex. She also contact her orthopedic surgeon Dr. Burleson as she has scheduled R partial clavicle resection for 06/24/25 which is being performed secondary to her high risk for skin breakdown due to pressure in this area; they are still planning to move forward with the surgery. Objective Data Objective Data Vital Signs: Vital Signs Temp Pulse Resp BP 97.5 F L 73 14 166/81 H 06/23/25 15:10 06/23/25 15:10 06/23/25 15:10 06/23/25 15:10 Charges/Coding Visit Charges Office Visits / Consults: 80206 OV L3 Est 20min Physical Exam Const alert, oriented x3 and no apparent distress General Appearance: cooperative and comfortable HEENT normocephalic, head/scalp atraumatic, hearing grossly normal bilaterally, external ears normal and external nose normal Eyes General Eye: normal appearance of both eyes Neck General: normal visual inspection Resp normal respiratory effort, normal air movement, no retractions and no use of accessory muscles Effort and Inspection: able to speak in complete sentences; Negative for labored, grunting or stridor Cardio regular rate Skin Wounds: wounds noted Wound Narrative: L medial calf wound remains healed. Her R clavicle is fractured and displaced. The skin immediately overlying this has persistent red discoloration consistent with early pressure injury, but centrally there is complete skin breakdown with fat layer exposed but there is no exposed bone; wound base is pink with moderate slough. There is no excessive warmth or foul odor. I am unable to express any purulent drainage. There is nonblanching erythema consistent with pressure injury but no spreading/streaking erythema consistent with infection. Psych mental status grossly normal Appearance: grossly normal Attitude: calm and engaged Activity / Motor Behavior: appropriate eye contact Speech: normal speech Debridement Note Debridement Note No debridement was completed: No debridement was completed today Post-Debridement Measurements and Additional Note: Post-Debridement Measurements/Treatment WC - Nurse 1 - General Ulcer Assessment Start: 06/23/25 15:10 Freq: Status: Active Protocol: RAFA Activity Type Activity Date Activity User E-sign Co-sign Detail Recorded Client Recorded Date Recorded By Document 06/23/25 15:10 ML [id number] 06/23/25 15:12 ML 06/23/25 15:10 - Today's Visit Information Type of service Follow-up Visit (Physician/CEMENT PATCHER ) Arrival Mode Ambulatory Transfer Assistance None Patient Identification Verified (Name & Yes ) Patient Requires Transmission-Based No Precautions Vital Signs Temperature (97.8 F-99.1 F) 97.5 F L Temperature Source Temporal Pulse Rate (60-100) 73 Pulse Location Monitor Respiratory Rate (12-18) 14 Respiratory rate source Observation Blood Pressure (90/60-120/80) 166/81 H Blood Pressure Mean (mm Hg) 109 Source Monitor Position Sitting Blood Pressure Location Right Arm History Since Last Visit- (Skip if this is Patient's initial visit) Have you changed medications since your No last visit? Any new allergies or adverse reactions No Had a fall/change in ADL's that may No increase risk of falls Signs or symptoms of abuse and/or No neglect since last visit Has dressing in place as prescribed No Has compression in place as prescribed N/A Has offloadiing in place as prescribed N/A Experienced any changes in pain level or No management Pain Scale: 0-10 Numeric Is Patient Pain Free? Yes GARCIA - Nurse 1 - General Ulcer Measurement Start: 06/23/25 15:10 Freq: Status: Active Protocol: Activity Type Activity Date Activity User E-sign Co-sign Detail Recorded Client Recorded Date Recorded By Document 06/23/25 15:10 ML [id number] 06/23/25 15:12 ML 06/23/25 15:10 Wound Center Nurse 1 #2 Right Clavicle -Current Size (cm) - Length 0.2 -Current Size (cm) - Width 0.2 -Current Size (cm) - Depth 0.1 -Total Square Cm 0.04 -Exudate Amt Medium -Exudate Type Serosanguineous -Granulation Amt Medium (34-66%) -Slough/Fibrin Yes -Necrosis Amt Medium (34-66%) -Necrotic Tissue Type Adherent Slough -Structure Exposed Bone -Texture (Tiffany-wound Skin Appearance) Assessed -Moisture (Tiffany-wound Skin Appearance) Assessed -Color (Tiffany-wound Skin Appearance) Assessed, Erythema -Temperature (Tiffany-wound Skin No Abnormality Appearance) (Pt Warm) -Tenderness on Palpation (Tiffany-wound Yes Skin Appearance) -Ulcer Cleansing Rinsed/ Irrigated with Saline -Foul Odor after Cleansing No -Anesthetic Used 5% Lidocaine Gel WC - Nurse 2 - General Ulcer CM Notes Start: 06/23/25 15:10 Freq: Status: Active Protocol: Activity Type Activity Date Activity User E-sign Co-sign Detail Recorded Client Recorded Date Recorded By Document 06/23/25 15:23 [id number] 06/23/25 15:29 06/23/25 15:23 Wound Center Nurse 2 -Time 15:29 -Correct Patient Yes -Correct Side, Site, Position Yes -Correct Procedure No -Procedure Performed No -Tunneling No -Undermining/Tunneling No -Circular Undermining No -Wound/Ulcer Outcome Not Healed -Ulcer Cleansing Rinsed/ Irrigated with Saline -Foul Odor after Cleansing No -Bioengineered Tissue No -Bleeding Controlled with NA -Offloading No Pain Scale: 0-10 Numeric Is Patient Pain Free? Yes GARCIA - Nurse 3 - General Ulcer D/C NN Start: 06/23/25 15:10 Freq: Status: Active Protocol: Activity Type Activity Date Activity User E-sign Co-sign Detail Recorded Client Recorded Date Recorded By Document 06/23/25 15:29 [id number] 06/23/25 15:30 06/23/25 15:29 Wound Care Center Nurse 3 #2 Right Clavicle -Ulcer Cleansing Not Cleansed -Foul Odor after Cleansing No -Primary Dressing Applied Promogran Wendy Matter, Silicone Border Foam 4x4 -Promogran Wendy Matter 1 -Silicone Border Foam 4x4 1 Pain Scale: 0-10 Numeric Is Patient Pain Free? Yes WC - Visit Discharge Discharge Condition Stable Ambulatory Status Ambulatory, Walker Transportation Private Auto Assessment/Plan Assessment/Plan (1) Leg edema: CODE(S): R60.0 - Localized edema (2) Nonunion of fracture of clavicle: CODE(S): S42.009K - Fracture of unspecified part of unspecified clavicle, subsequent encounter for fracture with nonunion (3) Skin ulcer of upper extremity: CODE(S): L98.A199 - 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 PLAN: Plan The wound overlying her R clavicle appears stable from when I saw her last week; no increased depth and no exposed bone. I do feel this wound is secondary to the internal pressure of her displaced R clavicle against the skin and as such agree and reassured the patient that moving forward with surgery as scheduled is reasonable and hopefully will allow reduced pressure to the area and promote healing. I did obtain wound cultures given report of purulent drainage. For now, I recommend continuing Keflex as prescribed. Pending C&S results will extend or adjust regimen as indicated. We dressed the wound with lightly moistened promogran and foam border dressing today. This will remain in place until removed for her scheduled surgery 06/24. Advised the patient to then adhere to postoperative wound care instructions as provided by her orthopedic surgeon. She will return to the office in 1 week, call sooner with concerns.
--- NOTE | 2025-06-24 09:15 | WC ---
PHOTO-RIGHT CLAVICLE 06/23/25
[2025-06-30 13:58] VITALS: BP 149/75; PULSE 72; RESP 18; TEMP 36.5
--- NOTE | 2025-06-30 17:08 | PCM.WC.PN ---
History of Present Illness Date of Service: 06/30/25 Chief Complaint: L calf laceration History of Wound: Lauren Alcaraz is an 84 y/o female who presents today for evaluation and management of a LLE laceration. On 05/02 she had inadvertently injured her leg at home leading to a laceration; she presented initially to urgent care where the wound was cleansed and steri-strips applied but due to continued bleeding she presented to the [facility] ER on 05/03 where steri-strips were reapplied (laceration noted to be 3.5cm in length) and was recommended to hold her anticoagulation for a few days to reduce bleeding which she did. She was seen by her PCP Dr. Perry 05/11/25 and referred to wound care due to concern for high potential for delayed healing. She notes she has not had much oozing from this more recently; there are still steri-strips intact. She is chronically anticoagulated with Eliquis. She does not smoke. She is not diabetic. Subjective Subjective Lauren had R distal clavicle excision, debridement, and skin closure by Dr. Burleson on 06/24/2025. She reports she has had some expected soreness at the surgical site. It has been covered with steri-strips; she has not noticed any drainage. She has been taking sponge baths to avoid getting the area wet as directed. She reports that Dr. Burleson has cleared us to manage care of the site. Objective Data Objective Data Vital Signs: Vital Signs Temp Pulse Resp BP O2 Del Method 97.7 F L 72 18 149/75 H Room Air 06/30/25 13:58 06/30/25 13:58 06/30/25 13:58 06/30/25 13:58 06/30/25 13:58 Oxygen Delivery Method Room Air Lab / Micro Data Micro: Microbiology 06/23/25 15:25 Wound - Shoulder Gram Stain - Final 06/23/25 15:25 Wound - Shoulder Wound Culture - Final No growth aerobically. 06/23/25 15:25 Wound - Shoulder Anaerobic Culture - Final No growth in 5 days. Charges/Coding Visit Charges Office Visits / Consults: [id number] OV L3 Est 20min Physical Exam Const alert, oriented x3 and no apparent distress General Appearance: cooperative and comfortable HEENT normocephalic, head/scalp atraumatic, hearing grossly normal bilaterally, external ears normal and external nose normal Eyes General Eye: normal appearance of both eyes Neck General: normal visual inspection Resp normal respiratory effort, normal air movement, no retractions and no use of accessory muscles Effort and Inspection: able to speak in complete sentences; Negative for labored, grunting or stridor Cardio regular rate Skin Wounds: wounds noted Wound Narrative: L medial calf wound remains healed. Her R clavicle is fractured and displaced. Now s/p distal clavicle excision with skin closure; the site is covered with many ster-strips. The top layer is pulling away, gently removed these but left intact layer beneath in place. There is visible dried serosanguineous drainage on the steri-strips, no new-appearing or active drainage. There is no significant erythema around the site. There is mild, expected swelling which is soft to palpation without any associated excess warmth, fluctuance, induration. Psych mental status grossly normal Appearance: grossly normal Attitude: calm and engaged Activity / Motor Behavior: appropriate eye contact Speech: normal speech Debridement Note Debridement Note No debridement was completed: No debridement was completed today Post-Debridement Measurements and Additional Note: Post-Debridement Measurements/Treatment - Nurse 1 - General Ulcer Assessment Start: 06/23/25 15:10 Freq: Status: Active Protocol: WC.LOWRAIMUNDO Activity Type Activity Date Activity User E-sign Co-sign Detail Recorded Client Recorded Date Recorded By Document 06/23/25 15:10 ML [id number] 06/23/25 15:12 ML Document 06/30/25 13:58 DS [id number] 06/30/25 14:07 DS 06/23/25 06/30/25 15:10 13:58 - Today's Visit Information Type of service Follow-up Visit Follow-up Visit (Physician/IDENTIFICATION CLERK (Physician/IDENTIFICATION CLERK ) ) Arrival Mode Ambulatory Ambulatory, Walker Transfer Assistance None Patient Identification Verified (Name & Yes Yes ) Patient Requires Transmission-Based No No Precautions Safety Precautions Fall Prevention Vital Signs Temperature (97.8 F-99.1 F) 97.5 F L 97.7 F L Temperature Source Temporal Temporal Pulse Rate (60-100) 73 72 Pulse Location Monitor Monitor Respiratory Rate (12-18) 14 18 Respiratory rate source Observation Observation Oxygen Delivery Method Room Air Blood Pressure (90/60-120/80) 166/81 H 149/75 H Blood Pressure Mean (mm Hg) 109 99 Source Monitor Monitor Position Sitting Sitting Blood Pressure Location Right Arm Left Arm History Since Last Visit- (Skip if this is Patient's initial visit) Have you changed medications since your No No last visit? Any new allergies or adverse reactions No No Had a fall/change in ADL's that may No No increase risk of falls Signs or symptoms of abuse and/or No No neglect since last visit Have you been in the hospital since your No last visit? Has dressing in place as prescribed No Yes Has compression in place as prescribed N/A N/A Has offloadiing in place as prescribed N/A N/A Experienced any changes in pain level or No No management Left Footwear Regular Shoe Right Footwear Regular Shoe Pain Scale: 0-10 Numeric Is Patient Pain Free? Yes Yes WC - Nurse 1 - General Ulcer Measurement Start: 06/23/25 15:10 Freq: Status: Active Protocol: Activity Type Activity Date Activity User E-sign Co-sign Detail Recorded Client Recorded Date Recorded By Document 06/23/25 15:10 ML [id number] 06/23/25 15:12 ML Document 06/30/25 13:58 DS [id number] 06/30/25 14:07 DS 06/23/25 06/30/25 15:10 13:58 Wound Center Nurse 1 #2 Right Clavicle -Current Size (cm) - Length 0.2 -Current Size (cm) - Width 0.2 -Current Size (cm) - Depth 0.1 -Total Square Cm 0.04 -Exudate Amt Medium -Exudate Type Serosanguineous -Granulation Amt Medium (34-66%) -Slough/Fibrin Yes -Necrosis Amt Medium (34-66%) -Necrotic Tissue Type Adherent Slough -Structure Exposed Bone -Texture (Tiffany-wound Skin Appearance) Assessed -Moisture (Tiffany-wound Skin Appearance) Assessed -Color (Tiffany-wound Skin Appearance) Assessed, Erythema -Temperature (Tiffany-wound Skin No Abnormality No Abnormality Appearance) (Pt Warm) (Pt Warm) -Tenderness on Palpation (Tiffany-wound Yes Yes Skin Appearance) -Ulcer Cleansing Rinsed/ wet wash cloth Irrigated with Saline -Foul Odor after Cleansing No -Anesthetic Used 5% Lidocaine Gel -Wound Comment(s) not measurable. steri strips in place from surgery on 06/24 WC - Nurse 2 - General Ulcer CM Notes Start: 06/23/25 15:10 Freq: Status: Active Protocol: Activity Type Activity Date Activity User E-sign Co-sign Detail Recorded Client Recorded Date Recorded By Document 06/23/25 15:23 [id number] 06/23/25 15:29 Document 06/30/25 14:11 [id number] 06/30/25 14:13 06/23/25 06/30/25 15:23 14:11 Wound Center Nurse 2 #2 Right Clavicle -Time 15:29 14:12 -Correct Patient Yes Yes -Correct Side, Site, Position Yes Yes -Correct Procedure No No -Procedure Performed No No -Tunneling No -Undermining/Tunneling No -Circular Undermining No -Wound/Ulcer Outcome Not Healed Not Healed -Ulcer Cleansing Rinsed/ Irrigated with Saline -Foul Odor after Cleansing No -Bioengineered Tissue No -Bleeding Controlled with NA NA -Offloading No -Wound Comment(s) Surgical sutures and steri strips intact Pain Scale: 0-10 Numeric Is Patient Pain Free? Yes Yes - Nurse 3 - General Ulcer D/C NN Start: 06/23/25 15:10 Freq: Status: Active Protocol: Activity Type Activity Date Activity User E-sign Co-sign Detail Recorded Client Recorded Date Recorded By Document 06/23/25 15:29 [id number] 06/23/25 15:30 Document 06/30/25 14:33 [id number] 06/30/25 14:35 06/23/25 06/30/25 15:29 14:33 Wound Care Center Nurse 3 #2 Right Clavicle -Ulcer Cleansing Not Cleansed -Foul Odor after Cleansing No -Primary Dressing Applied Promogran Silicone Border Wendy Matter, Foam 4x4 Silicone Border Foam 4x4 -Promogran Wendy Matter 1 -Silicone Border Foam 4x4 1 2 Treatment Response Procedure Tolerated Well Pain Scale: 0-10 Numeric Is Patient Pain Free? 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 PLAN: Plan Wound cultures from last week were completely negative. Surgical site with steri-strips in place. She is only 1 week post-op so these were left in place; there is no active drainage or signs of infection. Will likely remove these next week. For now, will place a Mepilex foam border dressing over the site; since she is doing sponge baths, as long as the area stays clean and dry then she can just replace this dressing prison through the week. She will return to the office in 1 week, call sooner with concerns.
--- NOTE | 2025-07-04 09:14 | WC ---
PHOTO-RIGHT CLAVICLE 06/30/25
[2025-07-07 15:08] VITALS: BP 127/67; PULSE 70; RESP 18; TEMP 35.8
--- NOTE | 2025-07-07 16:20 | PCM.WC.PN ---
History of Present Illness Date of Service: 07/07/25 Chief Complaint: L calf laceration History of Wound: Lauren Alcaraz is an 84 y/o female who presents today for evaluation and management of a LLE laceration. On 05/02 she had inadvertently injured her leg at home leading to a laceration; she presented initially to urgent care where the wound was cleansed and steri-strips applied but due to continued bleeding she presented to the [facility] ER on 05/03 where steri-strips were reapplied (laceration noted to be 3.5cm in length) and was recommended to hold her anticoagulation for a few days to reduce bleeding which she did. She was seen by her PCP Dr. Perry 05/11/25 and referred to wound care due to concern for high potential for delayed healing. She notes she has not had much oozing from this more recently; there are still steri-strips intact. She is chronically anticoagulated with Eliquis. She does not smoke. She is not diabetic. Subjective Subjective Lauren returns today for evaluation of her incision site s/p R clavicle resection to address pressure ulceration. Steri-strips were removed today. She has not had any drainage. Objective Data Objective Data Vital Signs: Vital Signs Temp Pulse Resp BP O2 Del Method 96.4 F L 70 18 127/67 H Room Air 07/07/25 15:08 07/07/25 15:08 07/07/25 15:08 07/07/25 15:08 07/07/25 15:08 Oxygen Delivery Method Room Air Lab / Micro Data Micro: Microbiology 06/23/25 15:25 Wound - Shoulder Gram Stain - Final 06/23/25 15:25 Wound - Shoulder Wound Culture - Final No growth aerobically. 06/23/25 15:25 Wound - Shoulder Anaerobic Culture - Final No growth in 5 days. Charges/Coding Visit Charges Office Visits / Consults: [id number] OV L3 Est 20min Physical Exam Const alert, oriented x3 and no apparent distress General Appearance: cooperative and comfortable HEENT normocephalic, head/scalp atraumatic, hearing grossly normal bilaterally, external ears normal and external nose normal Eyes General Eye: normal appearance of both eyes Neck General: normal visual inspection Resp normal respiratory effort, normal air movement, no retractions and no use of accessory muscles Effort and Inspection: able to speak in complete sentences; Negative for labored, grunting or stridor Cardio regular rate Skin Wounds: wounds noted Wound Narrative: L medial calf wound remains healed. Her R clavicle is fractured and displaced. Now s/p distal clavicle excision with skin closure; steri-strips removed revealing well-healed incision site. At the superior aspect of the incision, there is a spitting monocryl suture, the tails are visible and able to be grasped with forceps, but it did not easily pull out and the knot could not be visualized for removal. There is no associated stitch abscess, erythema, drainage. There is no open wound. Psych mental status grossly normal Appearance: grossly normal Attitude: calm and engaged Activity / Motor Behavior: appropriate eye contact Speech: normal speech Debridement Note Debridement Note No debridement was completed: No debridement was completed today Post-Debridement Measurements and Additional Note: Post-Debridement Measurements/Treatment - Nurse 1 - General Ulcer Assessment Start: 06/23/25 15:10 Freq: Status: Active Protocol: .NELSON Activity Type Activity Date Activity User E-sign Co-sign Detail Recorded Client Recorded Date Recorded By Document 06/23/25 15:10 ML [id number] 06/23/25 15:12 ML Document 06/30/25 13:58 DS [id number] 06/30/25 14:07 DS Document 07/07/25 15:08 GM [id number] 07/07/25 15:14 06/23/25 06/30/25 07/07/25 15:10 13:58 15:08 - Today's Visit Information Type of service Follow-up Visit Follow-up Visit Initial Visit (Physician/JUV[employer]ILE [employer]ICE OFFICER (Physician/JUVENILE JUSTICE OFFICER ) ) Arrival Mode Ambulatory Ambulatory, Ambulatory, Walker Walker Transfer Assistance None Patient Identification Verified (Name & Yes Yes Yes ) Patient Requires Transmission-Based No No Precautions Safety Precautions Fall Prevention Vital Signs Temperature (97.8 F-99.1 F) 97.5 F L 97.7 F L 96.4 F L Temperature Source Temporal Temporal Temporal Pulse Rate (60-100) 73 72 70 Pulse Location Monitor Monitor Monitor Respiratory Rate (12-18) 14 18 18 Respiratory rate source Observation Observation Observation Oxygen Delivery Method Room Air Room Air Blood Pressure (90/60-120/80) 166/81 H 149/75 H 127/67 H Blood Pressure Mean (mm Hg) 109 99 87 Source Monitor Monitor Monitor Position Sitting Sitting Sitting Blood Pressure Location Right Arm Left Arm Right Arm History Since Last Visit- (Skip if this is Patient's initial visit) Have you changed medications since your No No No last visit? Any new allergies or adverse reactions No No No Had a fall/change in ADL's that may No No No increase risk of falls Signs or symptoms of abuse and/or No No No neglect since last visit Have you been in the hospital since your No No last visit? Has dressing in place as prescribed No Yes Yes Has compression in place as prescribed N/A N/A N/A Has offloadiing in place as prescribed N/A N/A N/A Experienced any changes in pain level or No No No management Left Footwear Regular Shoe Regular Shoe Right Footwear Regular Shoe Regular Shoe Pain Scale: 0-10 Numeric Is Patient Pain Free? Yes Yes Yes WC - Nurse 1 - General Ulcer Measurement Start: 06/23/25 15:10 Freq: Status: Active Protocol: Activity Type Activity Date Activity User E-sign Co-sign Detail Recorded Client Recorded Date Recorded By Document 06/23/25 15:10 ML [id number] 06/23/25 15:12 ML Document 06/30/25 13:58 DS [id number] 06/30/25 14:07 DS Document 07/07/25 15:08 GM [id number] 07/07/25 15:14 GM 06/23/25 06/30/25 07/07/25 15:10 13:58 15:08 Wound Center Nurse 1 #2 Right Clavicle -Combined with other wound No -Current Size (cm) - Length 0.2 -Current Size (cm) - Width 0.2 -Current Size (cm) - Depth 0.1 -Total Square Cm 0.04 -Photo Taken Yes -Epithelialization Large 67-100% -Tunneling No -Undermining/Tunneling No -Circular Undermining No -Exudate Amt Medium None Present -Exudate Type Serosanguineous -Wound Margin Indistinct, Non -Visible -Granulation Amt Medium (34-66%) Small (1-33%) -Granulation Quality Pale,[place] -Slough/Fibrin Yes No -Necrosis Amt Medium (34-66%) None Present (0 %) -Necrotic Tissue Type Adherent Slough -Structure Exposed Bone -Texture (Tiffany-wound Skin Appearance) Assessed Assessed -Moisture (Tiffany-wound Skin Appearance) Assessed Assessed -Color (Tiffany-wound Skin Appearance) Assessed, Assessed, Erythema Ecchymosis -Temperature (Tiffany-wound Skin No Abnormality No Abnormality No Abnormality Appearance) (Pt Warm) (Pt Warm) (Pt Warm) -Tenderness on Palpation (Tiffany-wound Yes Yes No Skin Appearance) -Ulcer Cleansing Rinsed/ wet wash cloth Soap and Water Irrigated with Saline -Foul Odor after Cleansing No No -Anesthetic Used 5% Lidocaine 5% Lidocaine Gel Gel -Wound Comment(s) not measurable. steri strips in place from surgery on 06/24 Lower Limb Edema Present NA WC - Nurse 2 - General Ulcer CM Notes Start: 06/23/25 15:10 Freq: Status: Active Protocol: Activity Type Activity Date Activity User E-sign Co-sign Detail Recorded Client Recorded Date Recorded By Document 06/23/25 15:23 GM(2) [id number] 06/23/25 15:29 GM(2) Document 06/30/25 14:11 GM(2) [id number] 06/30/25 14:13 GM(2) Document 07/07/25 15:31 GM(2) [id number] 07/07/25 15:32 GM(2) 06/23/25 06/30/25 07/07/25 15:23 14:11 15:31 Wound Center Nurse 2 #2 Right Clavicle -Time 15:29 14:12 15:32 -Correct Patient Yes Yes Yes -Correct Side, Site, Position Yes Yes Yes -Correct Procedure No No No -Procedure Performed No No No -Tunneling No No -Undermining/Tunneling No No -Circular Undermining No No -Wound/Ulcer Outcome Not Healed Not Healed Healed- Surgical Closure -Ulcer Cleansing Rinsed/ Not Cleansed Irrigated with Saline -Foul Odor after Cleansing No No -Bioengineered Tissue No No -Bleeding Controlled with NA NA NA -Offloading No No -Wound Comment(s) Surgical sutures and steri strips intact Pain Scale: 0-10 Numeric Is Patient Pain Free? Yes Yes Yes WC - Nurse 3 - General Ulcer D/C NN Start: 06/23/25 15:10 Freq: Status: Active Protocol: Activity Type Activity Date Activity User E-sign Co-sign Detail Recorded Client Recorded Date Recorded By Document 06/23/25 15:29 GM(2) [id number] 06/23/25 15:30 GM(2) Document 06/30/25 14:33 RB [id number] 06/30/25 14:35 RB Document 07/07/25 15:34 GM(2) [id number] 07/07/25 15:35 GM(2) 06/23/25 06/30/25 07/07/25 15:29 14:33 15:34 Wound Care Center Nurse 3 #2 Right Clavicle -Ulcer Cleansing Not Cleansed Not Cleansed -Foul Odor after Cleansing No No -Primary Dressing Applied Promogran Silicone Border Silicone Border Wendy Matter, Foam 4x4 Foam 4x4 Silicone Border Foam 4x4 -Other Dressing bacitracin -Promogran Wendy Matter 1 -Silicone Border Foam 4x4 1 2 1 Treatment Response Procedure Tolerated Well Pain Scale: 0-10 Numeric Is Patient Pain Free? 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 PLAN: Plan The surgical incision site overlying the right clavicle appears very well-healing. There is a spitting monocryl suture at the superior aspect, the tails were visible but it did not pull easily with traction and no knot could be visualized to adequately cut and remove the suture. There are no signs of infection. She does have follow-up with orthopedics tomorrow. I advise applying bactitracin to the area and keeping covered with a foam-border dressing to prevent infection and allow for continued healing. I advised that at her appointment tomorrow with orthopedics they may be able to remove the suture, otherwise it will continue to work its way out of the skin with time. As next week is Thanksgiving, the wound center will be closed so I will see her back in 2 weeks but she is asked to please call sooner with any concerns.
--- NOTE | 2025-07-08 09:09 | WC ---
PHOTO-RIGHT CLAVICLE 07/07/25
== END 2025-07-17 23:59 | disposition home or self-care (01) ==
LOC: WC 15:00
PROVIDERS: PCP Internal Medicine; Referring Provider Internal Medicine; Visit Provider Physician Assistant
DX: L98.A1 Non-pressure chronic ulcer of upper arm (principal); Z79.01 Long term (current) use of anticoagulants; R60.0 Localized edema; S42.009K Fracture of unspecified part of unspecified clavicle, subsequent encounter for fracture with nonunion
CPT/HCPCS: 87070; 87075; 87205; 99213; G0463

== ENCOUNTER → 2025-08-08 | Outpatient (CLI) | payer MEDICARE, OTHER, SELFPAY ==
[2025-08-08 17:53] LABS: Hematocrit 34.7 % (37-47); Hemoglobin 10.3 g/dL (12.0-15.0); Immature Granulocytes Count 0.010 X10^3/uL (0.0-0.0); Mean Corp Hgb Conc 29.7 g/dL (32-36); Mean Corpuscular Volume 88.1 fL (81-99); Mean Platelet Vol. 11.2 fl (6.2-12.0); NRBC Flagged by Analyzer 0 % (0-5); Platelet Count 182 K/mm3 (150-450); RBC Distribution Width CV 15.6 % (11.6-14.6); RBC Distribution Width SD 50.2 fl (35.1-43.9); Red Blood Count 3.94 M/mm3 (4.2-5.4); White Blood Count 5.0 K/mm3 (4.4-11.0)
[2025-08-08 18:18] LABS: AST(SGOT) 26 U/L (<=31); Alanine Aminotransfer ALT/SGPT 17 U/L (<=34); Albumin, Serum 4.0 g/dL (3.4-4.8); Alkaline Phosphatase 80 U/L (35-104); Anion Gap 8 (7-18); BUN 16 mg/dL (4-19); BUN/Creat Ratio 17.1 RATIO (10-20); Calcium,Total 9.2 mg/dL (7.6-11.0); Carbon Dioxide 27.4 mmol/L (20.0-29.0); Chloride 106 mmol/L (96-106); Globulin 2.9 g/dL (2.2-4.2); Glucose 134 mg/dL (70-99); Magnesium 2.0 mg/dL (1.5-2.2); Potassium 3.9 mmol/L (3.5-5.1)
== END | disposition home or self-care (01) ==
LOC: MTLAB 16:43
PROVIDERS: PCP Internal Medicine; Referring Provider Internal Medicine; Visit Provider Internal Medicine
DX: R50.9 Fever, unspecified (principal)
CPT/HCPCS: 36415; 80053; 83735; 85025